=== PATIENT | male | born 1950 | race Caucasian/White ===

== ENCOUNTER 2025-06-03 01:37 | Inpatient (IN) | payer MEDICARE, SELFPAY ==
[2025-06-03] VITALS (35 sets, daily range): BP systolic 106–159; BP diastolic 49–97; PULSE 79–103; RESP 16–28; TEMP 36.6–37.2; O2SAT 91–100; BMI 52.2; BMI 50.5
--- NOTE | 2025-06-03 02:00 | EKG12_ITS ---
Test Reason : DYSRHYTHMIA Blood Pressure : */* mmHG Vent. Rate : 95 BPM Atrial Rate : 95 BPM P-R Int : 176 ms QRS Dur : 98 ms QT Int : 374 ms P-R-T Axes : 49 72 27 degrees QTcB Int : 469 ms Normal sinus rhythm Possible Inferior infarct , age undetermined Abnormal ECG Confirmed by Mikal Rasheed ([id number]), brands editor HUE SAWYER ([id number]) on 06/04/2025 1:24:22 PM Referred By: Confirmed By: Mikal Rasheed
--- NOTE | 2025-06-03 02:00 | CT_ITS ---
PROCEDURE: SPINE LUMBAR WITH CONTRAST 06/03/2025 REASON FOR EXAM: RULE OUT OSTEO, SACRAL WOUND Decubitus ulcer. TECHNIQUE: Procedure Code: CTSPLW Modality: CT Procedure: SPINE LUMBAR WITH CONTRAST CONTRAST: Isovue 370 VOLUME: 100 mL One or more dose reduction techniques were used (e.g., Automated exposure control, adjustment of the mA and/or kV according to patient size, use of iterative reconstruction technique). RADIATION DOSE SUMMARY: CTDlvol: 65 mGy DLP: 1486 mGycm COMPARISON: None. FINDINGS: Vertebrae: Mild degenerate disc and facet disease most prominent L4-5 where there is severe right and moderate left neural foraminal narrowing as well as severe right and mild left lateral recess narrowing. No fractures. Pelvis and sacrum: Decubitus ulcer overlies the right posterior lower sacroiliac joint mild adjacent inflammation. No abscess. Of the underlying right sacrum and sacroiliac joint with no definitive involvement. Intracranial structures show imaged kidneys negative. Iliac stents. Severe vascular disease of the iliac. Prostate normal. Remainder of structures negative. CT/Spine Lumbar WITH Contrast IMPRESSION: Degenerative changes lower lumbar spine. Vascular disease. Right sided decubitus ulcer without underlying osteomyelitis. Reading Location: [id number]
--- NOTE | 2025-06-03 02:03 | EX.ED.DYSGE1 ---
HPI History of Present Illness Chief Complaint: Fever Narrative Narrative: Patient is a 74-year-old male presenting to the emergency department for concern of sacral wound infection. Patient has a past medical history of respiratory failure with hypoxia, on baseline 2 L nasal cannula at his facility, CAD, peripheral vascular disease, bilateral AKA's, TIA, type 2 diabetes, anemia, hyperlipidemia, CHF, pressure ulcer of the sacral region. Patient states that this evening he developed a fever at his facility of 102.7. States he is on Tylenol every 6 hours. He reports he was having sweats and chills as well. States he felt fine yesterday. Is concerned that his sacral wound is infected. He does report he had an episode of some acid reflux in his chest earlier that went away after Tums. Denies any shortness of breath more than baseline. States that he normally wears 2 L nasal cannula but he was 88% on this so EMS bumped him up to 4 L nasal cannula. Denies any abdominal pain, nausea, vomiting, diarrhea. [facility] Medical History (Updated 06/03/25 @ 07:[address] Silvina Mackey, DO) Chronic pain BPH with urinary obstruction GERD (gastroesophageal reflux disease) Diabetic neuropathy Morbid obesity Hyperlipidemia Essential hypertension Chronic anemia CHF (congestive heart failure) Anxiety Depression Above knee amputation of left lower extremity Above knee amputation of right lower extremity PVD (peripheral vascular disease) Diabetes Home Medications ?Medication ?Instructions ?Recorded ?Last Taken ?Type acetaminophen 325 mg capsule 650 mg PO Q4H PRN fever or pain 06/03/25 Unknown History acetaminophen 500 mg capsule 1,000 mg PO Q6H PRN fever or pain 06/03/25 Unknown History acetaminophen 650 mg rectal 650 mg MD Q4H PRN fever or pain 06/03/25 Unknown History suppository aluminum-mag hydroxide-simethicone 30 ml PO Q4H PRN indigestion 06/03/25 Unknown History 200 mg-200 mg-20 mg/5 mL oral susp (Antacid Plus Anti-Gas) amlodipine 10 mg tablet 10 mg PO DAILY 06/03/25 Unknown History ascorbic acid (vitamin C) 500 mg 500 mg PO DAILY 06/03/25 Unknown History capsule aspirin 81 mg tablet 81 mg PO DAILY 06/03/25 Unknown History bisacodyl 10 mg rectal suppository 10 mg MD DAILY PRN constipation 06/03/25 Unknown History buspirone 5 mg tablet 5 mg PO BID 06/03/25 Unknown History calcium carbonate (Antacid Ultra 430 mg PO TID PRN dyspepsia 06/03/25 Unknown History Strength) carvedilol 6.25 mg tablet 6.25 mg PO BID 06/03/25 Unknown History cetirizine 10 mg tablet 10 mg PO DAILY 06/03/25 Unknown History clopidogrel 75 mg tablet 75 mg PO DAILY 06/03/25 Unknown History dextrose 40 % oral gel (Glucose 20 g PO Q15M PRN hypoglycemia 06/03/25 Unknown History Gel) escitalopram oxalate 10 mg tablet 10 mg PO DAILY 06/03/25 Unknown History furosemide 40 mg tablet (Lasix) 40 mg PO DAILY 06/03/25 Unknown History gabapentin 300 mg capsule 300 mg PO QHS 06/03/25 Unknown History glucagon 1 mg injection kit 1 mg IM .q15min PRN hypoglycemia 06/03/25 Unknown History guaifenesin 100 mg/5 mL oral 200 mg PO Q4H PRN cough 06/03/25 Unknown History liquid (Cough Syrup) hydralazine 25 mg tablet 75 mg PO TID 06/03/25 Unknown History insulin glargine 100 unit/mL (3 20 unit subcut QPM 06/03/25 Unknown History mL) subcutaneous pen (Lantus Solostar U-100 Insulin) insulin lispro 100 unit/mL 14 unit subcut ACHS 06/03/25 Unknown History subcutaneous pen (Humalog KwikPen (U-100) Insulin) insulin lispro 100 unit/mL See Protocol subcut TID 06/03/25 Unknown History subcutaneous pen (Humalog KwikPen (U-100) Insulin) isosorbide dinitrate 40 mg tablet 40 mg PO TID 06/03/25 Unknown History magnesium hydroxide 400 mg/5 mL 30 ml PO DAILY PRN constipation 06/03/25 Unknown History oral suspension (Milk of Magnesia) methocarbamol 500 mg tablet 500 mg PO QHS 06/03/25 Unknown History multivit,tx with iron 27 1 tab PO DAILY 06/03/25 Unknown History wj-vhbgxaz-rywml acid 0.4 mg-minerals tablet (Thera-M) pantoprazole 40 mg tablet,delayed 40 mg PO DAILY 06/03/25 Unknown History release (Protonix) rivaroxaban 2.5 mg tablet 2.5 mg PO BID 06/03/25 Unknown History sennosides 8.6 mg tablet (senna) 8.6 mg PO BID 06/03/25 Unknown History sodium chloride 0.65 % nasal spray 1 spray intranasal BID 06/03/25 Unknown History aerosol (Nasal [place] (sodium chloride)) tamsulosin 0.4 mg capsule 0.4 mg PO QHS 06/03/25 Unknown History tramadol 50 mg tablet 50 mg PO BID 06/03/25 Unknown History Allergy/AdvReac Type Severity Reaction Status Date / Time atorvastatin Allergy Unknown unknown Verified 06/03/25 01:50 levofloxacin Allergy Unknown unknown Verified 06/03/25 01:50 metformin AdvReac Diarrhea Verified 06/03/25 01:50 Surgical History (Updated 06/03/25 @ 07:[address] Silvina Mackey DO) S/P AKA (above knee amputation) bilateral Social History Smoking Status: Never smoker ROS ROS ED ROS Narrative See HPI EXAM Physical Exam Narrative Exam Narrative: Vital signs: Reviewed General: Alert and oriented x 3. No acute distress. Chronically ill-appearing. HEENT: Head is normocephalic and atraumatic, sinuses nontender, pupils equal round and reactive. Nares are patent. Oropharynx and throat exams normal. Neck: Supple without lymphadenopathy nontender Cardiovascular: Regular rate and rhythm, no murmurs. No rubs or gallops. Normal S1 and S2 Respiratory: Clear to auscultation bilaterally. No wheezes, rales, rhonchi. On 3 L nasal cannula saturating 94%. Abdominal: Soft and nontender. Normal bowel sounds. No guarding or rebound. Nonsurgical abdomen Back: Sacral wound with surrounding erythema. There is bloody purulent drainage from the wound. Wound was probed and it appears to go down to bone. No fluctuance or crepitus of the skin surrounding the wound. Extremities: Bilateral AKA's. Skin: No rash or redness. The rest of the physical exam is unremarkable Const Vital Signs: 06/03/25 01:42 06/03/25 01:50 06/03/25 02:11 Temperature 98.8 F Temperature Source Oral Pulse Rate 103 H Respiratory Rate 20 H Respiratory Effort Normal Respiratory Pattern Normal Blood Pressure 134/52 H Blood Pressure Mean 79 Pulse Ox 94 97 Oxygen Delivery Method Nasal Cannula Nasal Cannula Oxygen Flow Rate (L/min) 4 4 06/03/25 02:45 06/03/25 03:00 06/03/25 04:00 Temperature 98.9 F 98.1 F 98 F Temperature Source Oral Oral Oral Pulse Rate 95 93 99 Respiratory Rate 16 16 20 H Respiratory Effort Respiratory Pattern Blood Pressure 136/58 H 136/55 H 125/97 H Blood Pressure Mean 84 82 106 Pulse Ox 94 94 94 Oxygen Delivery Method Room Air Room Air Nasal Cannula Oxygen Flow Rate (L/min) 6 06/03/25 04:17 06/03/25 04:47 06/03/25 06:47 Temperature 98.9 F Temperature Source Pulse Rate 101 H 94 79 Respiratory Rate 16 16 Respiratory Effort Respiratory Pattern Blood Pressure 131/70 H 129/60 H 140/59 H Blood Pressure Mean 83 86 Pulse Ox 97 98 Oxygen Delivery Method Nasal Cannula Oxygen Flow Rate (L/min) 6 MDM MDM MDM Narrative Medical decision making narrative: Patient is a 74-year-old male presenting to the emergency department for concern of a wound infection. Patient was seen and examined. Patient arrives tachycardic at 103, mildly tachypneic at 20, requiring 3 L nasal cannula to saturate 94%. Baseline is 2 L nasal cannula. He arrives afebrile but states that he did take Tylenol before he was sent here. Differential includes but is not limited to: Osteomyelitis, cellulitis, abscess, pneumonia, viral illness, PE, ACS Given the reports of fever, tachycardia and concerns for infection, blood cultures were obtained. CT imaging of the lumbar spine was ordered to evaluate for any osteomyelitis. CT of the chest was also obtained to rule out pulmonary embolism and evaluate for any pneumonia given the patient has a increased oxygen requirement and is bedbound. CBC with leukocytosis of 13.8 and chronic anemia of 7.4. Wound was cultured by myself. With the leukocytosis, patient is meeting sepsis criteria, patient started on vancomycin and cefepime for coverage of possible osteomyelitis. Fluid bolus ordered however will resuscitate slowly given his history of CHF. EKG shows normal sinus rhythm. There are ST depressions in V4 through V6, no ST elevation, no abnormal T wave inversions, no dysrhythmia. No prior EKGs to compare to. Initial troponin of 119, reflex of 113. While patient was here he said that he did develop symptoms of acid reflux again. He was given 324 mg aspirin and nitro. His chest pain was resolved after this. Lactate within normal limits. CTA of the chest shows mild patchy airspace opacities, edema versus pneumonia. Negative for PE. CT lumbar spine shows no evidence of osteomyelitis. Given the patient's new oxygen requirement, findings of possible pneumonia, sepsis and elevated troponin, patient will require admission for further management. Discussed with patient and at bedside. He he is agreeable. Admitted to Dr. Mackey for further management. Clinical impression Sepsis Elevated troponin Sacral ulcer Acute on chronic hypoxic respiratory failure History & Record Review Discussion w/independent historian: Patient Lab Data Attestation: I reviewed the patient's lab results. Labs: Laboratory Results - last 24 hr 06/03/25 06/03/25 06/03/25 02:07 03:02 04:11 WBC 13.8 H RBC 2.83 L Hgb 7.4 L Hct 23.9 L MCV 84.5 MCH 26.1 L MCHC 31.0 L RDW Std Deviation 48.9 H RDW Coeff of Abby 15.9 H Plt Count 379 MPV 9.1 Immature Gran % (Auto) 1.000 H Neut % (Auto) 82.0 H Lymph % (Auto) 6.5 L Harrison % (Auto) 8.1 Eos % (Auto) 1.8 Baso % (Auto) 0.6 Absolute Neuts (auto) 11.3 H Absolute Lymphs (auto) 0.90 Nucleated RBC % 0 Sodium 138 Potassium 4.1 Chloride 101 Carbon Dioxide 23.8 Anion Gap 14 BUN 24 H Creatinine 1.18 Estim Creat Clear Calc 45.20 L Est GFR (MDRD) Non-Af 65 BUN/Creatinine Ratio 20.3 H Glucose 208 H Lactic Acid 2.3 H* Calcium 8.8 Total Bilirubin 0.16 AST 14 ALT 7 Alkaline Phosphatase 86 Troponin T High Sens 119 H* Troponin T Hi Sens 2 Hr 113 H* Total Protein 6.5 Albumin 3.1 L Globulin 3.4 Albumin/Globulin Ratio 0.9 Urine Color Yellow Urine Clarity Clear Urine pH 6.0 Ur Specific Taylor 1.020 Urine Protein 30 H Urine Glucose (UA) Normal Urine Ketones Negative Urine Occult Blood 10 H Urine Nitrite Negative Urine Bilirubin Negative Urine Urobilinogen Normal Ur Leukocyte Esterase 500 H Urine RBC 0 SEEN Urine WBC 10-25 SEEN Ur Squamous Epith Cells 0 SEEN Urine Bacteria RARE Urine Mucus 0 SEEN 09/14/25 06:40 WBC RBC Hgb Hct MCV MCH MCHC RDW Std Deviation RDW Coeff of Abby Plt Count MPV Immature Gran % (Auto) Neut % (Auto) Lymph % (Auto) Harrison % (Auto) Eos % (Auto) Baso % (Auto) Absolute Neuts (auto) Absolute Lymphs (auto) Nucleated RBC % Sodium Potassium Chloride Carbon Dioxide Anion Gap BUN Creatinine Estim Creat Clear Calc Est GFR (MDRD) Non-Af BUN/Creatinine Ratio Glucose Lactic Acid 1.4 Calcium Total Bilirubin AST ALT Alkaline Phosphatase Troponin T High Sens Troponin T Hi Sens 2 Hr Total Protein Albumin Globulin Albumin/Globulin Ratio Urine Color Urine Clarity Urine pH Ur Specific Taylor Urine Protein Urine Glucose (UA) Urine Ketones Urine Occult Blood Urine Nitrite Urine Bilirubin Urine Urobilinogen Ur Leukocyte Esterase Urine RBC Urine WBC Ur Squamous Epith Cells Urine Bacteria Urine Mucus Radiography Diagnostic Testing: Clinical Impression(s) from Imaging Studies Lumbar Spine CT 06/03/25 02:00 IMPRESSION: Degenerative changes lower lumbar spine. Vascular disease. Right sided decubitus ulcer without underlying osteomyelitis. Reading Location: [facility] Chest CTA 06/03/25 02:11 IMPRESSION: Emphysema. Small bilateral pleural effusions. Mild patchy airspace in the lungs, pulmonary edema versus pneumonia. Negative for pulmonary embolus. Reading Location: [id number] Discharge Plan Triage Chief Complaint: Fever ED Provider: Suzie Montes Dx/Rx/DC Orders Primary Care Provider: Jazmyne Wilkins
--- NOTE | 2025-06-03 02:11 | CT_ITS ---
PROCEDURE: CTA CHEST W/WO CONTRAST 06/03/2025 REASON FOR EXAM: RULE OUT PE Shortness of breath. Cough. TECHNIQUE: Procedure Code: [id number] Modality: CT Procedure: CTA CHEST W/WO CONTRAST Multiplanar Sagittal and Coronal images were obtained. 3D post processing was performed CONTRAST: Isovue 370 VOLUME: 100 mL One or more dose reduction techniques were used (e.g., Automated exposure control, adjustment of the mA and/or kV according to patient size, use of iterative reconstruction technique). RADIATION DOSE SUMMARY: CTDlvol: 50 mGy DLP: 1486 mGycm COMPARISON: None # of known CTs in the past 12 months: 0 # of known Cardiac Nuclear Medicine Studies in the past 12 months: 0 FINDINGS: Thyroid gland: Negative. Lungs: Small bilateral pleural effusions. Mild patchy airspace disease in the left lung. No pulmonary nodules or masses. Pleura: Small bilateral pleural effusions.. Airways: Imaged bronchi and trachea otherwisenegative. Mediastinum: Negative for mediastinal mass. Lymph nodes: Negative for axillary, mediastinal or hilar adenopathy. Heart and Vasculature: Right-sided axillary presumably fibular bypass noted. This does not contain contrast in is likely occluded. Pulmonary arteries adequately opacify with contrast. Negative for intraluminal thrombus. Small pericardial effusion. Heart normal size. Negative for vascular calcifications of the thoracic aorta. Coronary Artery Calcifications: [id number] vascular calcifications of the coronary arteries Upper Abdomen: Negative. Hardware: None. Bones: Age-appropriate degenerative changes of the thoracic spine. CT/CTA Chest W/WO Contrast IMPRESSION: Emphysema. Small bilateral pleural effusions. Mild patchy airspace in the lungs, pulmonary edema versus pneumonia. Negative for pulmonary embolus. Reading Location: [id number]
[2025-06-03 02:20] LABS: Hematocrit 23.9 % (40-54); Hemoglobin 7.4 g/dL (13.0-16.5); Immature Granulocytes Count 0.140 X10^3/uL (0.0-0.0); Mean Corp Hgb Conc 31.0 g/dL (32-36); Mean Corpuscular Volume 84.5 fL (80-94); Mean Platelet Vol. 9.1 fl (6.2-12.0); NRBC Flagged by Analyzer 0 % (0-5); Platelet Count 379 K/mm3 (150-450); RBC Distribution Width CV 15.9 % (11.6-14.6); RBC Distribution Width SD 48.9 fl (35.1-43.9); Red Blood Count 2.83 M/mm3 (4.6-6.2); White Blood Count 13.8 K/mm3 (4.4-11.0)
[2025-06-03 02:46] LABS: AST(SGOT) 14 U/L (<=37); Alanine Aminotransfer ALT/SGPT 7 U/L (<=46); Albumin, Serum 3.1 g/dL (3.4-4.8); Alkaline Phosphatase 86 U/L (40-129); Anion Gap 14 (5-15); BUN 24 mg/dL (4-19); BUN/Creat Ratio 20.3 RATIO (10-20); Calcium,Total 8.8 mg/dL (7.6-11.0); Carbon Dioxide 23.8 mmol/L (21.0-32.0); Chloride 101 mmol/L (98-108); Estimated Creatinine Clearance 45.20 ml/min (50-250); Globulin 3.4 g/dL (2.2-4.2); Glucose 208 mg/dL (70-99); Potassium 4.1 mmol/L (3.3-5.1)
[2025-06-03] MEDS: Vancomycin HCl 1,750 MG in 0.9% Normal Saline (500mL Bag) 500 ML 250 MG IV (03:04)
[2025-06-03] MEDS: Cefepime HCl 2 GM in 0.9% Normal Saline (100mL MB+) 100 ML IV (03:05)
[2025-06-03] MEDS: 0.9% Normal Saline (500mL Bag) 500 ML 1000 ML IV (03:05)
--- OUTSIDE RECORDS SUMMARY | 2025-06-03 03:07 | XMS RPT_ITS | CCD ---
Author Organization [facility] Care Team Providers Care Undercar Specialist Name Role Phone Selvin Robin MD Unavailable Davin Moran MD Unavailable [phone] Paulina Severino MD Primary Care Provider Landen Clement MD Unavailable Selvin Robin MD Unavailable Davin Moran MD Unavailable Paulina Severino MD Primary Care Provider Landen Clement MD Unavailable Juan CARROLL, Dylan Unavailable Juan CARROLL, Dylan Unavailable Marianna Klein MA Unavailable Schuyler RN, Fritz Odonnell Unavailable Schuyler KARIMI, Fritz Odonnell Unavailable Paulina Severino MD Primary Care Provider Mary WILEY.PARK ACTIVITIES COORDINATOR, Lyubov Unavailable [phone] James KARIMI, Lizzie Unavailable [phone] DARRON VALENTINO Admitting UnavailKENNETH Gutierrez Attending Unavailable GEM WALDEN Consulting Unavailable PAULINA SEVERINO Primary Care Unavailable PAULINA SEVERINO Primary Care Unavailable PROVIDER, UNKNOWN Attending Unavailable PROVIDER, UNKNOWN Admitting Unavailable Loren Wolfe RN Unavailable Unavailbrandt e Angela Cuadra MD Unavailable Unavailable PAULINA SEVERINO Primary Care Unavailable PAULINA SEVERINO Primary Care Unavailable KONTAK, PAULINA R Primary Care Unavailable CHAPARRO, SELMA Referring Unavailable SELF Referring Unavailable LYUBOV HERNANDEZ Attending Unavailable MAYCOL, PAULINA R Primary Care Unavailable MARY, LYUBOV Referring Unavailable KONTAK, PAULINA R Primary Care Unavailable KONTAK, PAULINA R Attending Unavailable RADHA CHAPARROLY Referring Unavailable MARY, LYUBOV Attending Unavailable LYLYTAK, PAULINA R Primary Care Unavailable LOU CANELA Referring Unavailable MARTIN CASTILLO Attending Unavailable LYLYTAK, PAULINA R Primary Care Unavailable KONTAK, PAULINA R Primary Care Unavailable MARY, LYUBOV Attending Unavailable MARY, LYUBOV Attending Unavailable KONTAK, PAULINA R Primary Care Unavailable MARY, LYUBOV Attending Unavailable KONTAK, PAULINA R Primary Care Unavailable KONTAK, PAULINA R Primary Care Unavailable AYDEN PALOMINO Admitting Unavailable MARTHA CANELA Attending Unavailable STEFFANIE ALLEN Referring Unavailable MARY, LYUBOV Attending Unavailable SELF Referring Unavailable YLLYTAK, PAULINA R Primary Care Unavailable SELMA CHAPARRO Referring Unavailable LYLYTAAgata, PAULINA R Primary Care Unavailable STEFFANIE COLEMAN Referring Unavailable KONTAK, PAULINA R Primary Care Unavailable KONTAK, PAULINA R Primary Care Unavailable KONTAK, PAULINA R Primary Care Unavailable KONTAK, PAULINA R Primary Care Unavailable MARYLYUBOV Referring Unavailable KONTAK, PAULINA R Primary Care Unavailable ELIZABETH BALL Attending Unavailable KONTAK, PAULINA R Primary Care Unavailable THIERRY RUSH Attending Unavailabl e KONKRISTINA, PAULINA R Primary Care Unavailable SELF Referring Unavailable EDUIN COLEMAN Attending Unavailable MAYCOL, PAULINA R Primary Care Unavailable MARYLYUBOV MARTINEZ Referring Unavailable KONTAAgata, PAULINA R Primary Care Unavailable RADHA CHAPARROLY Referring Unavailable KONTAK, PAULINA R Primary Care Unavailable CHAPARRO, SELMA Referring Unavailable DAVIN MORAN Attending Unavailable MAYCOL, PAULINA R Primary Care Unavailable LYLYTAAgata, PAULINA R Primary Care Unavailable DAVIN TOBIAS Admitting Unavailable KARI BERG Attending Unavailable MAYCOL, PAULINA R Primary Care Unavailable DARYA GUAJARDO Admitting Unavailable THIRERY RUSH Consulting Unavailbrandt e THIERRY RUSH Referring Unavailabl e KARI BERG Attending Unavailable MAYCOL, PAULINA R Primary Care Unavailable EDUIN COLEMAN Attending Unavailable KONTAK, PAULINA R Primary Care Unavailable THIERRY RUSH Attending Unavailabl e PAULINA SEVERINO Primary Care Unavailable PAULINA SEVERINO Primary Care Unavailable ELIZABETH BALL Referring Unavailable PAULINA SEVERINO Primary Care Unavailable PAULINA SEVERINO Primary Care Unavailable PAULINA SEVERINO Referring Unavailable EDUIN COLEMAN Referring Unavailable PAULINA SEVERINO Primary Care Unavailable LYUBOV HERNANDEZ Referring Unavailable PAULINA SEVERINO Primary Care Unavailable Gudla OLS, Jazmyne Attending Unavailable Town Doctor, Out of Primary Care Unavailable Town Doctor, Out of Primary Care Unavailable Gudla OLS, Jazmyne Attending Unavailable [facility] Doctor, Out of Primary Care Unavailable Gudla OLS, Jazmyne Attending Unavailable Town Doctor, Out of Primary Care Unavailable Gudla OLS, Jazmyne Attending Unavailable Gudla OLS, Jazmyne Attending Unavailable [facility] Doctor, Out of Primary Care Unavailable Gudla OLS, Jazmyne Attending Unavailable [facility] Doctor, Out of Primary Care Unavailable Allergies Allergy Classification Reported Allergen(s) Allergy Type Date of Onset Reaction(s) Facility HMG-CoA Reductase Inhibitors (statins) (3 sources) atorvastatin Drug Allergy 7 Myalgia [facility] metFORMIN (3 sources) metFORMIN Drug Allergy 7 Diarrhea [facility] Work Phone: Quinolones (antibiotic) (3 sources) levoFLOXacin Drug Allergy 7 [facility] (20 sources) atorvastatin; Translations: [ATORVASTATIN] Drug Allergy 7 Myalgia [facility] (20 sources) levoFLOXacin; Translations: [LEVOFLOXACIN] Drug Allergy 7 Unknown [facility] (20 sources) metFORMIN; Translations: [METFORMIN] Drug Allergy 7 Diarrhea [facility] Work Phone: (20 sources) rosuvastatin Drug Allergy 6 Other: See Comments [facility] Medications Current Medications Medication Drug Class(es) Dates Sig (Normalized) Sig (Original) acetaminophen 500 mg oral tablet (20 sources) take 1 tablet by mouth once as needed acetaminophen (TYLENOL PO) Take 1-2 tablets by mouth every 6 hours as needed. 500mg tablet per Active take 1-2 tablets by mouth every six hours as needed ACETAMINOPHEN (TYLENOL ORAL) Take 1-2 tablets by mouth every 6 hours as needed. Suspended take 1-2 tablets by mouth every six hours as needed ACETAMINOPHEN (TYLENOL ORAL) Take 1-2 tablets by mouth every 6 hours as needed. Active take 1-2 tablets by mouth every six hours as needed ACETAMINOPHEN (TYLENOL ORAL) Take 1-2 tablets by mouth every 6 hours as needed. 0 Suspended take 1-2 tablets by mouth every six hours as needed ACETAMINOPHEN (TYLENOL ORAL) Take 1-2 tablets by mouth every 6 hours as needed. 0 Active Comment on above: Take 1-2 tablets by mouth every 6 hours as needed. acetaminophen 325 mg / oxyCODONE hydrochloride 5 mg oral tablet (12 sources) Opioid Agonist Start: End: 4 take 1 tablet by mouth every four hours as needed for pain oxyCODONE-acetaminophe n (PERCOCET) 5-325 mg tablet Indications: Postoperative pain Take 1 tablet by mouth every 4 hours as needed for pain for up to 7 days. 28 tablet 0 10/21/2023 10/28/2023 Active Start: 04-14-2022 End: 04-21-2022 take 1 tablet by mouth every six hours as needed for pain oxyCODONE-acetaminophen (PERCOCET) 5-325 mg tablet Indications: Spinal stenosis, lumbar region, without neurogenic claudication , Disturbance of skin sensation Take 1 tablet by mouth every 6 hours as needed for pain (for pain.) for up to 7 days. 28 tablet 0 04/14/2022 04/21/2022 Active Comment on above: Take 1 tablet by elisa th every 6 hours as needed for pain (for pain.) for up to 7 days. Take 1 tablet by elisa th every 4 hours as needed for pain for up to 7 days. amLODIPine 10 mg oral tablet (20 sources) Dihydropyridine Calcium Channel Kezia Start: 5 take 1 tablet by mouth once daily amLODIPine (NORVASC) 10 mg tablet Take 1 tablet by mouth once daily. 90 tablet 05/03/2025 Active Start: 03-07-2024 End: 06-05-2024 take 1 tablet by mouth once daily amLODIPine (NORVASC) 5 mg tablet Take 1 tablet by mouth once daily. 30 tablet 2 03/07/2024 Active Start: 03-27-2022 End: 03-27-2022 take 1 tablet by mouth once daily amLODIPine (NORVASC) 5 mg tablet Take 1 tablet by mouth once daily. 90 tablet 3 03/27/2022 Suspended Comment on above: Take 1 tablet by elisa th once daily. Take by mouth once d aily. aspirin 81 mg chewable tablet (20 sources) Platelet Aggregation Inhibitor, Nonsteroidal Anti-inflammatory Drug Start: 11-04-2024 End: 02-02-2025 take 1 tablet by mouth once daily aspirin 81 mg chewable tablet Take 1 tablet by mouth once daily. 30 tablet 2 11/04/2024 Active Start: 09-29-2023 End: 09-28-2024 take 1 tablet by mouth once daily aspirin 81 mg chewable tablet Take 1 tablet by mouth once daily. 09/29/2023 Active take 1 tablet by elisa th once daily aspirin, enteric coated (ASPIRIN, ENTERIC COATED) 325 mg EC tablet Take 325 mg by mouth once daily. 0 Active Comment on above: Take 325 mg by mouth once daily. Take 1 tablet by elisa th once daily. bacitracin 0.5 unt/mg / polymyxin b 10 unt/mg topical ointment (2 sources) Polymyxin-class Antibacterial Start: 11-04-19 End: 11-11-19 bacitracin zinc-polymyxin B (POLYSPORIN) 500-10,000 unit/gram ointment Apply 1 Packet to affected area three times a day for 7 days. 21 Packet 11/04/2024 11/11/2024 Active calcium carbonate 500 mg chewable tablet (3 sources) Start: 05-02-20 take 1000 mg by mouth every eight hours as needed calcium carbonate (TUMS) 500 mg chew Take 2 tablets by mouth three times a day as needed. 05/02/2025 Active carvedilol 6.25 mg oral tablet (20 sources) alpha-Adrenergic Kezia, beta-Adrenergic Kezia Start: 11-04-19 End: 02-29-20 take 1 tablet by mouth twice daily at mealtime carvedilol (COREG) 6.25 mg tablet Take 1 tablet by mouth two times a day with meals. 180 tablet 3 02/28/2025 Active cefdinir 300 mg oral capsule (4 sources) Cephalosporin Antibacterial Start: 12-23-19 End: 01-02-20 take 1 capsule by mouth twice daily cefdinir (OMNICEF) 300 mg capsule Indications: Bacterial sinusitis Take 1 capsule by mouth twice daily for 10 days. 20 capsule 0 12/22/2021 01/01/2022 Active Comment on above: Take 1 capsule by mo [facility] twice daily for 10 days. clopidogrel 75 mg oral tablet (20 sources) P2Y12 Platelet Inhibitor Start: 09-29-19 End: 08-21-20 25 take 1 tablet by mouth once daily clopidogrel (PLAVIX) 75 mg tablet Take 1 tablet by mouth once daily 90 tablet 3 08/21/2024 08/21/2025 Active Start: 01-08-2022 End: 04-30-2023 take 1 tablet by mouth once daily clopidogrel (PLAVIX) 75 mg tablet Take 1 tablet by mouth once daily. 90 tablet 3 04/30/2023 Active Start: 09-10-2021 take 1 tablet by elisa th once daily clopidogrel (PLAVIX) 75 mg tablet Take 1 tablet by mouth once daily. 90 tablet 3 09/10/2021 Active Comment on above: Take 1 tablet by elisa once daily. Take 1 tablet by elisa once daily docusate sodium 50 mg / sennosides, intermediate 8.6 mg oral tablet (11 sources) Start: 05-02-2025 take 1 tablet enteral route every twelve hours as needed senna-docusate (SENNA-S) 8.6-50 mg per tablet 1 tablet by ORAL/FEEDING TUBE route two times a day as needed. 05/02/2025 Active Start: 10-21-2023 End: 11-04-2023 take 1 tablet by mouth twice daily senna-docusate (SENNA-S) 8.6-50 mg per tablet Take 1 tablet by mouth two times a day for 14 days. 28 tablet 0 10/21/2023 11/04/2023 Active Comment on above: Take 1 tablet by elisa th two times a day for 14 days. escitalopram 10 mg oral tablet (20 sources) Serotonin Reuptake Inhibitor Start: 08-03-20 16 End: 01-03-20 24 take 1 tablet by mouth once daily escitalopram oxalate (LEXAPRO) 10 mg tablet Indications: Depressive disorder Take 1 tablet by mouth once daily. 90 tablet 3 01/03/2024 Active Comment on above: Take 10 mg by mouth once daily. Take 1 tablet by elisa th once daily. fenofibrate 145 mg oral tablet (20 sources) Peroxisome Proliferator Receptor alpha Agonist Start: 10-01-19 End: 01-31-20 take 1 tablet by mouth once daily fenofibrate nanocrystallized (TRICOR) 145 mg tablet Indications: Mixed hyperlipidemia Take 1 tablet by mouth once daily. 90 tablet 3 01/31/2024 01/30/2025 Active Start: 07-14-2022 take 1 tablet by elisa th once daily fenofibrate nanocrystallized (TRICOR) 145 mg tablet Indications: Mixed hyperlipidemia Take 1 tablet by mouth once daily. 90 tablet 3 07/14/2022 Active Start: 09-18-2021 take 1 tablet by elisa th once daily fenofibrate nanocrystallized (TRICOR) 145 mg tablet Indications: Mixed hyperlipidemia Take 1 tablet by mouth once daily. 90 tablet 3 09/18/2021 Suspended Comment on above: Take 1 tablet by elisa th once daily. flash glucose sensor (FREESTYLE CL 2 SENSOR) kit (20 sources) Start: 08-01-2024 flash glucose sensor (FREESTYLE CL 2 SENSOR) kit Apply new sensor every fourteen (14) days to upper arm. 6 Each 4 08/01/2024 Suspended Start: 08-01-2024 flash glucose sensor (FREESTYLE CL 2 SENSOR) kit Apply new sensor every fourteen (14) days to upper arm. 6 Each 4 08/01/2024 Active furosemide 40 mg oral tablet (3 sources) Loop Diuretic Start: 05-03-2025 take 1 tablet by mouth once daily furosemide (LASIX) 40 mg tablet Take 1 tablet by mouth once daily. 90 tablet 05/03/2025 Active gabapentin 300 mg oral capsule (20 sources) Anti-epileptic Agent Start: 05-02-2025 End: 06-01-2025 take 1 capsule by mouth once daily gabapentin (NEURONTIN) 300 mg capsule 1 capsule by ORAL/FEEDING TUBE route once daily for 30 days. 05/02/2025 06/01/2025 Active Start: 10-25-2023 End: 06-25-2024 take 1 tablet by mouth four times daily gabapentin (NEURONTIN) 600 mg tablet Indications: Spinal stenosis of lumbar region with neurogenic claudication Take 1 tablet by mouth four times daily for 90 days. 120 tablet 2 03/27/2024 Active Start: 07-21-2023 End: 08-20-2023 take 1 tablet by mouth four times daily gabapentin (NEURONTIN) 600 mg tablet Indications: Acute right-sided low back pain with right-sided sciatica , Spinal stenosis of lumbar region with neurogenic claudication Take 1 tablet by mouth four times daily for 30 days. 120 tablet 0 07/21/2023 Active Start: 06-09-2023 End: 09-07-2023 take 1 tablet by mouth three times daily gabapentin (NEURONTIN) 600 mg tablet Indications: Acute right-sided low back pain with right-sided sciatica , Spinal stenosis of lumbar region with neurogenic claudication Take 1 tablet by mouth three times daily for 90 days. 90 tablet 2 06/09/2023 07/21/2023 Discontinued Start: 07-14-2022 End: 06-09-2023 take 1 capsule by mouth three times daily gabapentin (NEURONTIN) 400 mg capsule Take 1 capsule by mouth three times daily for 90 days. 90 capsule 2 09/18/2022 06/09/2023 Discontinued (Changing Therapy/Dosage Form) Start: 07-10-2022 take 1 tablet by elisa th three times daily gabapentin (NEURONTIN) 600 mg tablet Take 1 tablet by mouth three times daily. 0 07/10/2022 Active Start: 04-23-2022 End: 06-17-2022 take 1 tablet by mouth three times daily gabapentin (NEURONTIN) 600 mg tablet Take 1 tablet by mouth three times daily for 30 days. 90 tablet 1 04/23/2022 06/17/2022 Discontinued Start: 12-22-2021 End: 12-22-2021 take 1 capsule by mouth three times daily gabapentin (NEURONTIN) 300 mg capsule Indications: Painful diabetic neuropathy (HCC) , Acute right-sided low back pain with right-sided sciatica Take 1 capsule by mouth three times daily for 90 days. 90 capsule 2 12/22/2021 12/22/2021 Discontinued Start: 12-22-2021 End: 03-22-2022 take 1 capsule by mouth three times daily gabapentin (NEURONTIN) 400 mg capsule Take 1 capsule by mouth three times daily for 90 days. 90 capsule 2 12/22/2021 Active Start: 09-18-2021 End: 12-22-2021 take 1 capsule by mouth once daily at bedtime gabapentin (NEURONTIN) 300 mg capsule Indications: Painful diabetic neuropathy (HCC) Take 1 capsule by mouth daily at bedtime for 180 days. 90 capsule 1 09/18/2021 12/22/2021 Discontinued take 1 tablet by [facility] once daily gabapentin (NEURONTIN) 600 mg tablet Take 600 mg by mouth four times daily. Pt takes at least one daily but gets drunk feeling if takes more Suspended Comment on above: Take 1 capsule by [facility] three times daily for 90 days. Take 1 capsule by [facility] daily at bedtime for 180 days. Take 1 tablet by [facility] three times daily for 30 days. Take 1 tablet by [facility] three times daily. Take 1 tablet by [facility] three times daily for 90 days. Take 1 tablet by [facility] four times daily for 30 days. Take 1 tablet by [facility] four times daily for 90 days. hydrALAZINE hydrochloride 25 mg oral tablet (20 sources) Arteriolar Vasodilator Start: End: take 3 tablets by mouth every eight hours hydrALAZINE (APRESOLINE) 25 mg tablet Take 3 tablets by mouth every 8 hours. 270 tablet 11 02/28/2025 Active 3 ml insulin degludec 100 unt/ml pen injector (20 sources) Insulin Analog Start: inject 20 [IU] by subcutaneous injection once daily at bedtime TRESIBA FLEXTOUCH U-100 100 unit/mL (3 mL) injection pen Indications: Type 2 diabetes mellitus with diabetic peripheral angiopathy without gangrene, with long-term current use of insulin ([facility]) Inject 20 Units subcutaneously daily at bedtime. 15 mL 3 11/04/2024 Active Start: 07-25-2024 inject 28 [IU] by ibrahim bcutaneous injection once daily at bedtime TRESIBA FLEXTOUCH U-100 100 unit/mL (3 mL) injection pen Indications: Type 2 diabetes mellitus with diabetic peripheral angiopathy without gangrene, with long-term current use of insulin ([facility]) Inject 28 Units subcutaneously daily at bedtime. 15 mL 3 07/25/2024 Active Start: 06-27-2024 End: 07-25-2024 inject 25 [IU] by subcutaneous injection once daily at bedtime TRESIBA FLEXTOUCH U-100 100 unit/mL (3 mL) injection pen Indications: Type 2 diabetes mellitus with diabetic peripheral angiopathy without gangrene, with long-term current use of insulin (HCC) Inject 25 Units subcutaneously daily at bedtime. 15 mL 3 07/10/2024 07/25/2024 Discontinued (Adjust Sig - Block E-Cancel) Start: 12-08-2023 End: 06-27-2024 insulin degludec (TRESIBA FLEXTOUCH U-100) 100 unit/mL (3 mL) injection pen Inject 20 Units subcutaneously daily at bedtime. 9 mL 03/27/2024 06/27/2024 Discontinued (Adjust Sig - Block E-Cancel) Comment on above: Inject 20 Units subcutaneously daily at bedtime. 3 ml insulin lispro 100 unt/ml pen injector (20 sources) Insulin Analog Start: 11-21-19 End: 01-09-20 inject 12 [IU] by subcutaneous injection three times daily before mealtime insulin lispro (HUMALOG KWIKPEN) 100 unit/mL Indications: Type 2 diabetes mellitus with diabetic peripheral angiopathy without gangrene, with long-term current use of insulin (HCC) INJECT 12 UNITS SUBCUTANEOUSLY 3 TIMES DAILY BEFORE MEALS -ADD 2 UNITS IF GLUCOSE IS OVER 250 15 mL 5 01/08/2025 Active Start: 11-04-2024 End: 11-20-2024 inject 8 [IU] by subcutaneous injection three times daily before mealtime insulin lispro (HUMALOG KWIKPEN) 100 unit/mL Indications: Type 2 diabetes mellitus with diabetic peripheral angiopathy without gangrene, with long-term current use of insulin (HCC) INJECT 8 UNITS SUBCUTANEOUSLY THREE TIMES DAILY BEFORE MEALS 15 mL 5 11/04/2024 11/20/2024 Discontinued Start: 09-29-2023 End: 01-11-2024 inject 12 [IU] by subcutaneous injection three times daily before mealtime insulin lispro (HUMALOG KWIKPEN) 100 unit/mL Indications: Type 2 diabetes mellitus with diabetic peripheral angiopathy without gangrene, with long-term current use of insulin (HCC) INJECT 12 UNITS SUBCUTANEOUSLY THREE TIMES DAILY BEFORE MEALS - ADD 2 UNITS IF GLUCOSE IS OVER 250 15 mL 5 01/11/2024 Active Start: 06-09-2023 insulin lispro (HUMALOG KWIKPEN) 100 unit/mL Indications: Type 2 diabetes mellitus with diabetic peripheral angiopathy without gangrene, with long-term current use of insulin (HCC) Inject 18 Units subcutaneously three times daily before meals. Plus additional 2 units if glucose is over 250. 5 Each 2 06/09/2023 Active Start: 06-10-2022 inject 10 [IU] by ibrahim bcutaneous injection three times daily before mealtime insulin lispro (HUMALOG KWIKPEN) 100 unit/mL Indications: Type 2 diabetes mellitus with diabetic peripheral angiopathy without gangrene, with long-term current use of insulin (HCC) Inject 10 Units subcutaneously three times daily before meals. 5 Each 2 06/10/2022 Active Start: 05-20-2022 End: 06-10-2022 insulin lispro 100 unit/mL injection Inject 0-15 Units subcutaneously w MEALS. 0 05/20/2022 06/10/2022 Discontinued Start: 09-03-2021 End: 12-30-2021 insulin lispro (HUMALOG KWIK PEN INSULIN) 200 unit/mL (3 mL) injection Indications: Type 2 diabetes mellitus with diabetic neuropathy, with long-term current use of insulin (HCC) , Type 2 diabetes mellitus with diabetic peripheral angiopathy without gangrene, with long-term current use of insulin (HCC) , Type 2 diabetes mellitus with microalbuminuria, with long-term current use of insulin (HCC) Inject 46 Units subcutaneously three times daily before meals. Dispense 20 pens for 90 days. DX: E11.42, E11.65, Z79.4 20 Pen 3 12/30/2021 Suspended Comment on above: Inject 46 Units subc utaneously three times daily before meals. Dispense 20 pens for 90 days. DX: E11.42, E11.65, Z79.4 Inject 0-15 Units ibrahim bcutaneously w MEALS. Inject 10 Units subc utaneously three times daily before meals. Inject 18 Units subc utaneously three times daily before meals. Plus additional 2 units if glucose is over 250. Inject 12 Units subc utaneously three times a day before meals. Plus additional 2 units if glucose is over 250. INJECT 12 UNITS SUBC UTANEOUSLY THREE TIMES DAILY BEFORE MEALS - ADD 2 UNITS IF GLUCOSE IS OVER 250 isosorbide dinitrate 40 mg oral tablet (3 sources) Nitrate Vasodilator Start: take 1 tablet by mouth three times daily isosorbide dinitrate (ISORDIL) 40 mg tablet 1 tablet by ORAL/FEEDING TUBE route three times a day. 05/02/2025 Active lisinopril 5 mg oral tablet (20 sources) Angiotensin Converting Enzyme Inhibitor Start: End: take 1 tablet by mouth once daily lisinopril (ZESTRIL) 5 mg tablet Take 1 tablet by mouth once daily. 90 tablet 3 06/13/2024 06/13/2025 Active Start: 09-30-2023 End: 12-29-2023 take 1 tablet by mouth once daily lisinopril (ZESTRIL) 5 mg tablet Take 1 tablet by mouth once daily. 09/30/2023 Active Start: 10-01-2022 take 1 tablet by elisa th once daily lisinopril 2.5 mg tablet Take 1 tablet by mouth once daily. 30 tablet 11 10/01/2022 Active Start: 05-20-2022 End: 08-06-2022 take 1 tablet by mouth once daily lisinopril 2.5 mg tablet Take 1 tablet by mouth once daily. 30 tablet 11 08/06/2022 Active Comment on above: Take 1 tablet by elisa th once daily. 24 hr metoprolol succinate 25 mg extended release oral tablet (20 sources) beta-Adrenergic Kezia Start: 10-01-2022 End: 09-23-2024 take 1 tablet by mouth once daily metoprolol succinate ER (TOPROL XL) 25 mg 24 hr tablet Take 1 tablet by mouth once daily. 90 tablet 1 03/27/2024 Active Start: 05-20-2022 End: 08-06-2022 take 1 tablet by mouth once daily metoprolol succinate ER (TOPROL XL) 25 mg 24 hr tablet Take 1 tablet by mouth once daily. 30 tablet 11 08/06/2022 Active Comment on above: Take 1 tablet by elisa th once daily. MULTIVIT &MINERALS/FERROUS FUM (MULTI VITAMIN ORAL) (20 sources) MULTIVIT &MINERA LS/FERROUS FUM (MULTI VITAMIN ORAL) Take by mouth once daily. Suspended MULTIVIT &MINERA LS/FERROUS FUM (MULTI VITAMIN ORAL) Take by mouth once daily. Active MULTIVIT &MINERA LS/FERROUS FUM (MULTI VITAMIN ORAL) Take by mouth once daily. 0 Suspended MULTIVIT &MINERA LS/FERROUS FUM (MULTI VITAMIN ORAL) Take by mouth once daily. 0 Active Comment on above: Take by mouth once d aily. pantoprazole 40 mg delayed release oral tablet (20 sources) Proton Pump Inhibitor Start: take 1 tablet by mouth once daily in the morning pantoprazole DR (PROTONIX) 40 mg tablet Take 1 tablet by mouth daily at 6 am. 05/03/2025 Active Start: 11-04-2024 End: 02-02-2025 take 1 tablet by mouth once daily pantoprazole DR (PROTONIX) 40 mg tablet Take 1 tablet by mouth once daily. 30 tablet 2 11/04/2024 02/02/2025 Active Start: 09-29-2023 End: 12-28-2023 take 1 tablet by mouth once daily pantoprazole DR (PROTONIX) 40 mg tablet Take 1 tablet by mouth once daily. 09/29/2023 Active Comment on above: Take 1 tablet by elisa th once daily. rivaroxaban 2.5 mg oral tablet (20 sources) Factor Xa Inhibitor Start: 11-04-2024 End: 06-25-2025 take 1 tablet by mouth twice daily rivaroxaban (XARELTO) 2.5 mg tablet Take 1 tablet by mouth two times a day. 60 tablet 2 03/27/2025 06/25/2025 Active Start: 12-08-2023 take 1 tablet by elisa th once daily rivaroxaban (XARELTO) 10 mg tablet Take 1 tablet by mouth once daily. 90 tablet 3 12/08/2023 Active Start: 09-29-2023 End: 09-28-2024 take 1 tablet by mouth once daily at dinner rivaroxaban (XARELTO) 20 mg tablet Take 1 tablet by mouth daily with dinner. 30 tablet 11 09/29/2023 12/08/2023 Discontinued Start: 05-20-2022 End: 08-06-2022 take 1 tablet by mouth once daily at dinner rivaroxaban (XARELTO) 20 mg tablet Take 1 tablet by mouth daily with dinner. 30 tablet 11 08/06/2022 Active Start: 03-02-2022 End: 04-01-2022 take 1 tablet by mouth once daily at dinner rivaroxaban (XARELTO) 20 mg tablet Take 1 tablet by mouth daily with dinner. 30 tablet 11 03/02/2022 04/01/2022 Active Start: 10-02-2021 take 1 tablet by elisa th once daily at dinner rivaroxaban (XARELTO) 20 mg tablet Take 1 tablet by mouth daily with dinner. 30 tablet 11 10/02/2021 Active Comment on above: Take 1 tablet by elisa th daily with dinner. Take 1 tablet by elisa th once daily. rosuvastatin calcium 20 mg oral tablet (20 sources) HMG-CoA Reductase Inhibitor Start: 07-14-20 End: 02-29-20 take 1 tablet by mouth once daily rosuvastatin (CRESTOR) 20 mg tablet Indications: Coronary arteriosclerosis Take 1 tablet by mouth once daily. 90 tablet 3 02/28/2025 Active Start: 09-18-2021 take 1 tablet by elisa th once daily rosuvastatin (CRESTOR) 20 mg tablet Indications: Coronary arteriosclerosis Take 1 tablet by mouth once daily. 90 tablet 3 09/18/2021 Active Comment on above: Take 1 tablet by elisa th once daily. tamsulosin hydrochloride 0.4 mg oral capsule (20 sources) alpha-Adrenergic Kezia Start: 05-20-2022 End: 01-08-2025 take 1 capsule by mouth once daily tamsulosin (FLOMAX) 0.4 mg Take 1 capsule by mouth once daily 30 capsule 5 01/08/2025 Active Comment on above: Take 1 capsule by mo [facility] once daily. Take 1 capsule by mo [facility] once daily zinc oxide 0.2 mg/mg topical ointment (3 sources) Start: 05-02-2025 End: 05-03-2025 zinc oxide 20 % ointment Apply to affected area two times a day for 1 day. 05/02/2025 Active Completed/Discontinued Medications Medication Drug Class(es) Dates Sig (Normalized) Sig (Original) ascorbic acid 500 mg oral tablet (20 sources) Vitamin C Start: 12-11-2024 End: 03-11-2025 take 1 tablet by mouth once daily ascorbic acid, vitamin C, (VITAMIN C) 500 mg tablet Take 1 tablet by mouth once daily. 30 tablet 2 12/11/2024 Suspended Start: 08-22-2024 End: 11-20-2024 take 1 tablet by mouth once daily ascorbic acid, vitamin C, (VITAMIN C) 500 mg tablet Take 1 tablet by mouth once daily. 08/22/2024 Active Start: 09-29-2023 End: 08-22-2024 take 1 tablet by mouth twice daily ascorbic acid, vitamin C, (VITAMIN C) 500 mg tablet Take 1 tablet by mouth two times a day. 09/29/2023 08/22/2024 Discontinued (Adjust Sig - Block E-Cancel) Comment on above: Take 1 tablet by elisa th two times a day. atenolol 50 mg oral tablet (20 sources) beta-Adrenergic Kezia Start: 1 take 1 tablet by mouth once daily atenolol (TENORMIN) 50 mg tablet Take 1 tablet by mouth once daily. 90 tablet 3 09/18/2021 Suspended Comment on above: Take 1 tablet by elisa th once daily. benzonatate 100 mg oral capsule (20 sources) Non-narcotic Antitussive Start: 3 take 1 capsule by mouth three times daily as needed benzonatate (TESSALON PERLE) 100 mg capsule Indications: Viral URI with cough Take 1 capsule by mouth three times daily as needed. 20 capsule 0 12/23/2022 Active Comment on above: Take 1 capsule by mo [facility] three times daily as needed. Blood-Glucose Meter,Continuous (DEXCOM G7 SERVICE BAR CASHIER) misc (20 sources) Start: 4 End: 5 Blood-Glucose Meter,Continuous (DEXCOM G7 SERVICE BAR CASHIER) misc Check glucose throughout the day. Patient is on insulin 1 Each 11/19/2023 11/08/2024 Discontinued (Course of therapy completed) Start: 11-19-2023 Blood-Glucose Meter,Continuous (DEXCOM G7 SERVICE BAR CASHIER) misc Check glucose throughout the day. Patient is on insulin 1 Each 11/19/2023 Suspended Start: 11-19-2023 Blood-Glucose Meter,Continuous (DEXCOM G7 SERVICE BAR CASHIER) misc Check glucose throughout the day. Patient is on insulin 1 Each 11/19/2023 Active Start: 11-19-2023 Blood-Glucose Meter,Continuous (DEXCOM G7 SERVICE BAR CASHIER) misc Check glucose throughout the day. Patient is on insulin 1 Each 0 11/19/2023 Active Comment on above: Check glucose throug hout the day. Patient is on insulin Blood-Glucose Sensor (DEXCOM G7 SENSOR) katlyn (20 sources) Start: 11-19-2023 End: 11-08-2024 Blood-Glucose Sensor (DEXCOM G7 SENSOR) katlyn 1 Each every 2 weeks. Patient is on insulin 6 Each 3 11/19/2023 11/08/2024 Discontinued (Course of therapy completed) Start: 11-19-2023 Blood-Glucose Sensor (DEXCOM G7 SENSOR) katlyn 1 Each every 2 weeks. Patient is on insulin 6 Each 3 11/19/2023 Suspended Start: 11-19-2023 Blood-Glucose Sensor (DEXCOM G7 SENSOR) katlyn 1 Each every 2 weeks. Patient is on insulin 6 Each 3 11/19/2023 Active Comment on above: 1 Each every 2 weeks . Patient is on insulin cyclobenzaprine hydrochloride 5 mg oral tablet (20 sources) Muscle Relaxant Start: End: take 1 tablet by mouth every eight hours as needed cyclobenzaprine (FLEXERIL) 5 mg tablet Take 1 tablet by mouth three times a day as needed. 90 tablet 09/29/2023 08/22/2024 Discontinued (Course of therapy completed) Comment on above: Take 1 tablet by elisa th three times a day as needed. diclofenac sodium 1 mg/ml ophthalmic solution (20 sources) Nonsteroidal Anti-inflammatory Drug Start: take 1 drop(s) into the eye(s) twice daily diclofenac (VOLTAREN) 0.1 % ophthalmic solution Use 1 Drop in the left eye twice daily. 0 01/18/2023 Active Start: 01-18-2023 take 1 drop(s) into the eye(s) twice daily diclofenac (VOLTAREN) 0.1 % ophthalmic solution Use 1 Drop in the left eye twice daily. 0 01/18/2023 Active Comment on above: Use 1 Drop in the le ft eye twice daily. diphenhydrAMINE hydrochloride 25 mg oral capsule (2 sources) Histamine-1 Receptor Antagonist take 1 capsule by mouth every twenty-four hours as needed diphenhydrAMINE (BENADRYL) 25 mg capsule Take 25 mg by mouth at bedtime as needed. 0 Suspended Comment on above: Take 25 mg by mouth at bedtime as needed. doxycycline hyclate 100 mg oral tablet (4 sources) Tetracycline-class Drug Start: 07-19-20 End: 07-29-20 take 1 tablet by mouth twice daily doxycycline (VIBRA-TABS) 100 mg tablet Take 1 tablet by mouth two times a day for 10 days. 20 tablet 0 07/19/2023 07/29/2023 Comment on above: Take 1 tablet by elisa th two times a day for 10 days. flash glucose scanning reader (FREESTYLE CL 14 DAY READER) (20 sources) Start: 07-13-20 End: 03-27-20 flash glucose scanning reader (FREESTYLE CL 14 DAY READER) 1 Each once daily. 1 Each 0 07/13/2022 03/27/2024 Discontinued (Changing Therapy/Dosage Form) Start: 07-13-2022 flash glucose scanning reader (FREESTYLE CL 14 DAY READER) 1 Each once daily. 1 Each 0 07/13/2022 Active Comment on above: 1 Each once daily. flash glucose sensor (FREESTYLE CL 14 DAY SENSOR) kit (20 sources) Start: 10-21-2023 End: 03-27-2024 flash glucose sensor (FREESTYLE CL 14 DAY SENSOR) kit Apply sensor to arm every 14 days. 6 Each 3 10/21/2023 03/27/2024 Discontinued (Changing Therapy/Dosage Form) Start: 10-21-2023 flash glucose sensor (FREESTYLE CL 14 DAY SENSOR) kit Apply sensor to arm every 14 days. 6 Each 3 10/21/2023 Active Start: 07-13-2022 End: 10-20-2023 flash glucose sensor (FREEST YLE CL 14 DAY SENSOR) kit Apply sensor to arm every 14 days. 6 Each 3 07/13/2022 10/20/2023 Discontinued Start: 07-13-2022 flash glucose sensor (FREESTYLE CL 14 DAY SENSOR) kit Apply sensor to arm every 14 days. 6 Each 3 07/13/2022 Active Start: 09-18-2021 End: 12-30-2021 flash glucose sensor (FREEST YLE CL 14 DAY SENSOR) kit Indications: Uncontrolled type 2 diabetes mellitus with diabetic polyneuropathy, with long-term current use of insulin Apply sensor to arm every 14 days. 6 Each 3 09/18/2021 12/30/2021 Discontinued Start: 09-18-2021 flash glucose sensor (FREESTYLE CL 14 DAY SENSOR) kit Indications: Uncontrolled type 2 diabetes mellitus with diabetic polyneuropathy, with long-term current use of insulin Apply sensor to arm every 14 days. 6 Each 3 09/18/2021 Active Comment on above: Apply sensor to arm every 14 days. FLAXSEED OIL (OMEGA 3 ORAL) (20 sources) take 1000 mg by mouth once daily FLAXSEED OIL (OMEGA 3 ORAL) Take 1,000 mg by mouth once daily. 0 Suspended take 1000 mg by mouth once daily FLAXSEED OIL (OMEGA 3 ORAL) Take 1,000 mg by mouth once daily. 0 Active Comment on above: Take 1,000 mg by elisa th once daily. 3 ml insulin glargine 100 unt/ml pen injector (20 sources) Insulin Analog Start: 09-29-2023 End: 12-08-2023 insulin glargine (BASAGLAR KWIKPEN U-100 INSULIN) 100 unit/mL (3 mL) Inject 20 Units subcutaneously daily at bedtime. 15 mL 0 09/29/2023 12/08/2023 Discontinued Start: 07-19-2023 insulin glargi ne (BASAGLAR KWIKPEN U-100 INSULIN) 100 unit/mL (3 mL) Inject 32 Units subcutaneously daily at bedtime. 0 07/19/2023 Active Start: 07-19-2023 insulin glargi ne (BASAGLAR KWIKPEN U-100 INSULIN) 100 unit/mL (3 mL) Inject 32 Units subcutaneously daily at bedtime. 0 07/19/2023 Active Start: 06-09-2023 End: 07-19-2023 insulin glargine (BASAGLAR K WIKPEN U-100 INSULIN) 100 unit/mL (3 mL) Inject 25 Units subcutaneously daily at bedtime. 5 Each 06/09/2023 07/19/2023 Discontinued Start: 05-11-2023 End: 06-09-2023 insulin glargine (BASAGLAR K WIKPEN U-100 INSULIN) 100 unit/mL (3 mL) Inject 22 Units subcutaneously daily at bedtime. 5 Each 05/11/2023 06/09/2023 Discontinued (Adjust Sig - Block E-Cancel) Start: 04-22-2023 End: 05-11-2023 insulin glargine (BASAGLAR K WIKPEN U-100 INSULIN) 100 unit/mL (3 mL) Inject 18 Units subcutaneously daily at bedtime. 5 Each 04/22/2023 05/11/2023 Discontinued Start: 11-23-2022 End: 04-22-2023 insulin glargine (BASAGLAR K WIKPEN U-100 INSULIN) 100 unit/mL (3 mL) Inject 14 Units subcutaneously daily at bedtime. 5 Each 02/02/2023 04/22/2023 Discontinued Start: 08-06-2022 inject 10 [IU] by ibrahim bcutaneous injection once daily at bedtime insulin glargine (BASAGLAR KWIKPEN U-100 INSULIN) 100 unit/mL (3 mL) Inject 10 Units subcutaneously daily at bedtime. 5 Each 08/06/2022 Active Start: 08-06-2022 inject 10 [IU] by ibrahim bcutaneous injection once daily at bedtime insulin glargine (BASAGLAR KWIKPEN U-100 INSULIN) 100 unit/mL (3 mL) Inject 10 Units subcutaneously daily at bedtime. 5 Each 08/06/2022 Active Start: 12-30-2021 insulin glargi ne (LANTUS SOLOSTAR U-100 INSULIN) 100 unit/mL (3 mL) Indications: Type 2 diabetes mellitus with diabetic neuropathy, with long-term current use of insulin (HCC) , Type 2 diabetes mellitus with diabetic peripheral angiopathy without gangrene, with long-term current use of insulin (HCC) , Type 2 diabetes mellitus with microalbuminuria, with long-term current use of insulin (HCC) Inject 20 Units subcutaneously every morning. 30 mL 3 12/30/2021 Suspended Start: 09-03-2021 End: 12-30-2021 insulin glargine (LANTUS ABDI OSTAR U-100 INSULIN) 100 unit/mL (3 mL) Indications: Uncontrolled type 2 diabetes mellitus with diabetic polyneuropathy, with long-term current use of insulin Inject 20 Units subcutaneously every morning. 30 mL 3 09/03/2021 12/30/2021 Discontinued Comment on above: Inject 20 Units subc utaneously every morning. Inject 10 Units subc utaneously daily at bedtime. Inject 14 Units subc utaneously daily at bedtime. Inject 18 Units subc utaneously daily at bedtime. Inject 22 Units subc utaneously daily at bedtime. Inject 25 Units subc utaneously daily at bedtime. Inject 32 Units subc utaneously daily at bedtime. Inject 20 Units subc utaneously daily at bedtime. 3 ml insulin isophane, human 100 unt/ml pen injector (20 sources) Start: 09-03-2021 End: 12-30-2021 insulin NPH (HumuLIN N,NovoLIN N) pen Indications: Type 2 diabetes mellitus with diabetic neuropathy, with long-term current use of insulin (HCC) , Type 2 diabetes mellitus with diabetic peripheral angiopathy without gangrene, with long-term current use of insulin (HCC) , Type 2 diabetes mellitus with microalbuminuria, with long-term current use of insulin (HCC) Inject 45 Units subcutaneously daily at bedtime. DX: E11.42, E11.65, Z79.4 45 mL 3 12/30/2021 Suspended Comment on above: Inject 40 Units subc utaneously daily at bedtime. DX: E11.42, E11.65, Z79.4 Inject 45 Units subc utaneously daily at bedtime. DX: E11.42, E11.65, Z79.4 insulin lispro (HUMALOG KWIKPEN) 100 unit/mL (20 sources) Start: 06-09-2023 insulin lispro (HUMALOG KWIKPEN) 100 unit/mL Indications: Type 2 diabetes mellitus with diabetic peripheral angiopathy without gangrene, with long-term current use of insulin (HCC) Inject 18 Units subcutaneously three times daily before meals. Plus additional 2 units if glucose is over 250. 5 Each 2 06/09/2023 Active Start: 05-11-2023 End: 06-09-2023 insulin lispro (HUMALOG KWIK PEN) 100 unit/mL Indications: Type 2 diabetes mellitus with diabetic peripheral angiopathy without gangrene, with long-term current use of insulin (HCC) Inject 16 Units subcutaneously three times daily before meals. Plus additional 2 units if glucose is over 250. 5 Each 2 05/11/2023 06/09/2023 Discontinued (Adjust Sig - Block E-Cancel) Start: 05-11-2023 insulin lispro (HUMALOG KWIKPEN) 100 unit/mL Indications: Type 2 diabetes mellitus with diabetic peripheral angiopathy without gangrene, with long-term current use of insulin (HCC) Inject 16 Units subcutaneously three times daily before meals. Plus additional 2 units if glucose is over 250. 5 Each 2 05/11/2023 Active Start: 04-22-2023 End: 05-11-2023 insulin lispro (HUMALOG KWIK PEN) 100 unit/mL Indications: Type 2 diabetes mellitus with diabetic peripheral angiopathy without gangrene, with long-term current use of insulin (HCC) Inject 12 Units subcutaneously three times daily before meals. Plus additional 2 units if glucose is over 250. 5 Each 2 04/22/2023 05/11/2023 Discontinued Start: 04-22-2023 insulin lispro (HUMALOG KWIKPEN) 100 unit/mL Indications: Type 2 diabetes mellitus with diabetic peripheral angiopathy without gangrene, with long-term current use of insulin (HCC) Inject 12 Units subcutaneously three times daily before meals. Plus additional 2 units if glucose is over 250. 5 Each 2 04/22/2023 Active Start: 10-19-2022 End: 04-22-2023 inject 10 [IU] by subcutaneous injection three times daily before mealtime insulin lispro (HUMALOG KWIKPEN) 100 unit/mL Indications: Type 2 diabetes mellitus with diabetic peripheral angiopathy without gangrene, with long-term current use of insulin (HCC) Inject 10 Units subcutaneously three times daily before meals. 5 Each 2 10/19/2022 04/22/2023 Discontinued Start: 10-19-2022 inject 10 [IU] by ibrahim bcutaneous injection three times daily before mealtime insulin lispro (HUMALOG KWIKPEN) 100 unit/mL Indications: Type 2 diabetes mellitus with diabetic peripheral angiopathy without gangrene, with long-term current use of insulin (HCC) Inject 10 Units subcutaneously three times daily before meals. 5 Each 2 10/19/2022 Active Comment on above: Inject 10 Units subc utaneously three times daily before meals. Inject 12 Units subc utaneously three times daily before meals. Plus additional 2 units if glucose is over 250. Inject 16 Units subc utaneously three times daily before meals. Plus additional 2 units if glucose is over 250. Inject 18 Units subc utaneously three times daily before meals. Plus additional 2 units if glucose is over 250. 24 hr isosorbide mononitrate 60 mg extended release oral tablet (16 sources) Nitrate Vasodilator Start: End: 025 take 1 tablet by mouth twice daily isosorbide mononitrate ER (IMDUR) 60 mg 24 hr tablet Take 1 tablet by mouth two times a day. 180 tablet 3 02/28/2025 Suspended iv contrast (will be provided with radiology test) (6 sources) Start: End: inject 1 dose intravenously once iv contrast (will be provided with radiology test) CTA ABD/PEL LE - No IV access, insert saline lock prior to the sedation, infusion, injection for imaging exam. Discontinue saline lock post exam. If Pt. has a central line or IVAD, may access for administration according to line specific nursing protocol. Once exam is complete flush line and de-access according to line specific nursing protocol in the CT contrast administration guidelines link. 1 Each 0 06/29/2023 06/30/2023 Start: 06-29-2023 End: 06-30-2023 inject 1 dose intravenously once iv contrast (will be provided with radiology test) CTA ABD/PEL LE - No IV access, insert saline lock prior to the sedation, infusion, injection for imaging exam. Discontinue saline lock post exam. If Pt. has a central line or IVAD, may access for administration according to line specific nursing protocol. Once exam is complete flush line and de-access according to line specific nursing protocol in the CT contrast administration guidelines link. 1 Each 0 06/29/2023 06/30/2023 Active Start: 04-21-2022 End: 04-22-2022 inject 1 dose intravenously once iv contrast (will be provided with radiology test) CTA ABD/PEL LE - No IV access, insert saline lock prior to the sedation, infusion, injection for imaging exam. Discontinue saline lock post exam. If Pt. has a central line or IVAD, may access for administration according to line specific nursing protocol. Once exam is complete flush line and de-access according to line specific nursing protocol in the CT contrast administration guidelines link. 1 Each 0 04/21/2022 04/22/2022 Active Start: 04-20-2022 End: 04-21-2022 inject 1 dose intravenously once iv contrast (will be provided with radiology test) CTA ABD/PEL LE - No IV access, insert saline lock prior to the sedation, infusion, injection for imaging exam. Discontinue saline lock post exam. If Pt. has a central line or IVAD, may access for administration according to line specific nursing protocol. Once exam is complete flush line and de-access according to line specific nursing protocol in the CT contrast administration guidelines link. 1 Each 0 04/20/2022 04/21/2022 Active Comment on above: CTA ABD/PEL LE - No IV access, insert saline lock prior to the sedation, infusion, injection for imaging exam. Discontinue saline lock post exam. If Pt. has a central line or IVAD, may access for administration according to line specific nursing protocol. Once exam is complete flush line and de-access according to line specific nursing protocol in the CT contrast administration guidelines link. methylPREDNISolone (7 sources) Corticosteroid Start: 03-25-2022 End: 03-30-2022 methylPREDNISolone (MEDROL, YONIS,) 4 mg Dose-Pack Follow dosing instructions, take with food. 1 Package 0 03/25/2022 03/30/2022 Start: 03-25-2022 End: 03-30-2022 methylPREDNISolone (MEDROL, YONIS,) 4 mg Dose-Pack Follow dosing instructions, take with food. 1 Package 0 03/25/2022 03/30/2022 Active Start: 03-20-2022 End: 03-26-2022 methylPREDNISolone (MEDROL, YONIS,) 4 mg Dose-Pack Follow dosing instructions, take with food. 1 Package 0 03/20/2022 03/26/2022 Active Comment on above: Follow dosing instru ctions, take with food. NIFEdipine 90 mg osmotic 24 hr extended release oral tablet (20 sources) Dihydropyridine Calcium Channel Kezia Start: 11-05-19 End: 02-29-20 take 1 tablet by mouth once daily NIFEdipine ER (PROCARDIA XL) 90 mg 24 hr tablet Take 1 tablet by mouth once daily. 90 tablet 3 02/28/2025 Suspended nitroglycerin 0.4 mg sublingual tablet (19 sources) Nitrate Vasodilator Start: 01-02-20 nitroglycerin sublingual (NITROQUICK) 0.4 mg SL tablet Take 1 tablet by mouth as needed for chest pain. FOR CHEST PAIN. IF NO PAIN RELIEF, CALL 911 25 tablet 1 01/01/2025 Suspended ofloxacin 3 mg/ml ophthalmic solution (20 sources) Quinolone Antimicrobial Start: 11-26-19 ofloxacin (OCUFLOX) 0.3 % ophthalmic solution Start: 11-25-2022 take 1 drop(s) into the eye(s) four times daily ofloxacin (OCUFLOX) 0.3 % ophthalmic solution INSTILL 1 DROP INTO LEFT EYE 4 TIMES DAILY 0 11/25/2022 Active Comment on above: INSTILL 1 DROP INTO LEFT EYE 4 TIMES DAILY oxyCODONE hydrochloride 5 mg oral tablet (18 sources) Opioid Agonist Start: End: take 2.5 mg by mouth every six hours as needed oxyCODONE IR (ROXICODONE) 5 mg immediate release tablet Take 0.5 tablets by mouth every 6 hours as needed for up to 1 day. 1 tablet 05/02/2025 05/02/2025 Discontinued Start: 07-06-2022 End: 07-13-2022 take 1 tablet by mouth every eight hours as needed for pain oxyCODONE IR (ROXICODONE) 5 mg immediate release tablet Indications: Post-operative pain Take 1 tablet by mouth every 8 hours as needed for pain for up to 7 days. 21 tablet 0 07/06/2022 07/13/2022 Active Start: 06-19-2022 End: 06-26-2022 take 1 tablet by mouth every eight hours as needed for pain oxyCODONE IR (ROXICODONE) 5 mg immediate release tablet Indications: Post-operative pain Take 1 tablet by mouth every 8 hours as needed for pain for up to 7 days. 21 tablet 0 06/19/2022 06/26/2022 Active Start: 06-08-2022 End: 06-15-2022 take 1 tablet by mouth every eight hours as needed for pain oxyCODONE IR (ROXICODONE) 5 mg immediate release tablet Indications: Post-operative pain Take 1 tablet by mouth every 8 hours as needed for pain for up to 7 days. 21 tablet 0 06/08/2022 06/15/2022 Active Start: 06-02-2022 End: 06-05-2022 take 1 tablet by mouth every eight hours as needed for pain oxyCODONE IR (ROXICODONE) 5 mg immediate release tablet Indications: Post-operative pain Take 1 tablet by mouth every 8 hours as needed for pain for up to 3 days. 9 tablet 0 06/02/2022 06/05/2022 Active Start: 05-20-2022 End: 05-31-2022 take 1 tablet by mouth every eight hours as needed for pain oxyCODONE IR (ROXICODONE) 5 mg immediate release tablet Indications: Post-operative pain Take 1 tablet by mouth every 8 hours as needed for pain for up to 10 days. 30 tablet 0 05/21/2022 05/31/2022 Active Comment on above: Take 1 tablet by elisa every 8 hours as needed for pain. Take 1 tablet by elisa every 8 hours as needed for pain for up to 10 days. Take 1 tablet by elisa every 8 hours as needed for pain for up to 3 days. Take 1 tablet by elisa every 8 hours as needed for pain for up to 7 days. prednisoLONE acetate 10 mg/ml ophthalmic suspension (20 sources) Corticosteroid Start: 11-25-2022 prednisoLONE acetate (PRED FORTE) 1 % ophthalmic suspension Start: 11-25-2022 prednisoLONE a cetate (PRED FORTE) 1 % ophthalmic suspension INSTILL 1 DROP INTO LEFT EYE 4 TIMES DAILY 0 11/25/2022 Active Comment on above: INSTILL 1 DROP INTO LEFT EYE 4 TIMES DAILY predniSONE 20 mg oral tablet (3 sources) Start: 04-02-20 End: 12-31-19 take 1 tablet by mouth twice daily predniSONE (DELTASONE) 20 mg tablet Take 20 mg by mouth twice daily. 0 04/02/2021 12/30/2021 Discontinued Comment on above: Take 20 mg by mouth twice daily. ramipril 10 mg oral capsule (20 sources) Angiotensin Converting Enzyme Inhibitor Start: 09-18-20 End: 03-27-20 22 take 1 capsule by mouth once daily ramipril (ALTACE) 10 mg capsule Take 1 capsule by mouth once daily. 90 capsule 3 03/27/2022 Suspended Comment on above: Take 1 capsule by mo [facility] once daily. spironolactone 25 mg oral tablet (20 sources) Aldosterone Antagonist Start: 10-01-19 End: 09-23-19 take 1 tablet by mouth once daily spironolactone (ALDACTONE) 25 mg tablet Take 1 tablet by mouth once daily. 90 tablet 1 03/27/2024 Suspended Start: 05-20-2022 End: 08-06-2022 take 1 tablet by mouth once daily spironolactone (ALDACTONE) 25 mg tablet Take 1 tablet by mouth once daily. 30 tablet 11 08/06/2022 Active Comment on above: Take 1 tablet by elisa th once daily. traMADol hydrochloride 50 mg oral tablet (20 sources) Opioid Agonist Start: 2 End: 2 take 1 tablet by mouth every six hours as needed for pain traMADol (ULTRAM) 50 mg tablet Indications: DDD (degenerative disc disease), lumbar , Right sided sciatica Take 1 tablet by mouth every 6 hours as needed for pain. 40 tablet 0 03/31/2022 04/23/2022 Discontinued Start: 03-13-2022 take 1 tablet by elisa th every six hours as needed for pain traMADol (ULTRAM) 50 mg tablet Indications: DDD (degenerative disc disease), lumbar , Right sided sciatica Take 1 tablet by mouth every 6 hours as needed for pain. 40 tablet 0 03/13/2022 Active Comment on above: Take 1 tablet by elisa th every 6 hours as needed for pain. Take 1 tablet by elisa th every 6 hours as needed for pain. Do not start before March 22, 2022. valACYclovir 1000 mg oral tablet (20 sources) Herpesvirus Nucleoside Analog DNA Polymerase Inhibitor, Herpes Simplex Virus Nucleoside Analog DNA Polymerase Inhibitor, Herpes Zoster Virus Nucleoside Analog DNA Polymerase Inhibitor Start: 1 End: 2 take 1 tablet by mouth three times daily valACYclovir (VALTREX) 1 gram Take 1 tablet by mouth three times daily. 0 03/31/2021 04/23/2022 Discontinued Comment on above: Take 1 tablet by elisa th three times daily. Problems Active Problems Problem Classification Problem Date Documented Date Episodic/Chronic Acute myocardial infarction (20 sources) Myocardial infarction; Translations: [Non-ST elevation (NSTEMI) myocardial infarction] Onset: 5 Resolved: 5 05-19-2022 Chronic Aortic and peripheral arterial embolism or thrombosis (20 sources) Occlusion of aortoiliac artery; Translations: [Other arterial embolism and thrombosis of abdominal aorta] Onset: 4 Chronic Aortic; peripheral; and visceral artery aneurysms (20 sources) Dissection of artery of upper extremity; Translations: [Dissection of other artery] Onset: 5 11-03-2024 Chronic Cardiac dysrhythmias (1 source) Tachycardia; Translations: [Tachycardia, unspecified] 07-19-2023 Episodic Cataract (1 source) Incipient senile cataract; Translations: [Other age-related incipient cataract, right eye] 04-22-2023 Chronic Chronic kidney disease (8 sources) Chronic kidney disease stage 3A ; Translations: [Stage 3a chronic kidney disease (HCC)] Onset: 5 11-08-2024 Chronic Chronic obstructive pulmonary disease and bronchiectasis (20 sources) Chronic bronchitis; Translations: [Unspecified chronic bronchitis] Onset: 4 10-21-2023 Chronic Chronic ulcer of skin (13 sources) Non-pressure chronic ulcer of other part of right foot with unspecified severity; Translations: [Ulcer of other part of foot] Onset: 5 07-16-2023 Chronic Congestive heart failure; nonhypertensive (20 sources) Heart failure with reduced ejection fraction; Translations: [Unspecified systolic (congestive) heart failure] Onset: 2 05-19-2022 Chronic Coronary atherosclerosis and other heart disease (20 sources) Coronary atherosclerosis; Translations: [Atherosclerotic heart disease of [place] coronary artery without angina pectoris] Onset: 4 09-16-2021 Chronic Coronary atherosclerosis and other heart disease (2 sources) Coronary angioplasty status; Translations: [Presence of coronary angioplasty implant and graft] Onset: 5 Episodic Deficiency and other anemia (12 sources) Anemia; Translations: [Anemia, unspecified] Onset: 5 Episodic Deficiency and other anemia (1 source) Anemia, unspecified; Translations: [Anemia, unspecified type] Onset: 5 Episodic Diabetes mellitus with complications (20 sources) Type 2 diabetes mellitus; Translations: [Type 2 diabetes mellitus with diabetic neuropathy, unspecified] Onset: 2 Chronic Disorders of lipid metabolism (20 sources) Mixed hyperlipidemia; Translations: [Mixed hyperlipidemia] Onset: 7 07-25-2017 Chronic Esophageal disorders (20 sources) Gastroesophageal reflux disease; Translations: [Gastro-esophageal reflux disease without esophagitis] Onset: 2 02-28-2022 Chronic Essential hypertension (20 sources) Essential hypertension; Translations: [Essential (primary) hypertension] Onset: 6 Chronic Gangrene (1 source) Atherosclerosis of artery of lower limb; Translations: [Atherosclerosis of [place] arteries of extremities with gangrene, left leg] Chronic Gangrene (3 sources) Gangrenous disorder; Translations: [Gangrene, not elsewhere classified] Episodic Genitourinary symptoms and ill-defined conditions (4 sources) Retention of urine; Translations: [Retention of urine, unspecified] Onset: 5 04-27-2025 Episodic Hyperplasia of prostate (4 sources) Benign prostatic hyperplasia; Translations: [Benign prostatic hyperplasia without lower urinary tract symptoms] Onset: 5 04-05-2025 Chronic Hypertension with complications and secondary hypertension (19 sources) Hypertensive emergency; Translations: [Hypertensive emergency] Onset: 5 02-24-2025 Chronic Immunizations and screening for infectious disease (8 sources) Patient encounter status; Translations: [Encounter for immunization] Onset: 5 Episodic Mood disorders (2 sources) Depressive disorder; Translations: [Depressive disorder] 04-22-2023 Chronic Nutritional deficiencies (20 sources) Undernutrition; Translations: [Mild protein-calorie malnutrition] Onset: 2 Resolved: 3 04-27-2022 Chronic Occlusion or stenosis of precerebral arteries (20 sources) Carotid artery stenosis; Translations: [Occlusion and stenosis of unspecified carotid artery] Onset: 4 09-04-2016 Chronic Open wounds of extremities (2 sources) Open wound of lesser toe of right foot; Translations: [Unspecified open wound of right lesser toe(s) without damage to nail, initial encounter] 06-29-2023 Episodic Other aftercare (3 sources) Post-discharge follow-up; Translations: [Encounter for follow-up examination after completed treatment for conditions other than malignant neoplasm] Episodic Other bone disease and musculoskeletal deformities (20 sources) History of amputation of left leg through femur; Translations: [Acquired absence of left leg above knee] Onset: 2 05-19-2022 Chronic Other bone disease and musculoskeletal deformities (20 sources) History of amputation of right leg through femur; Translations: [Acquired absence of right leg above knee] Onset: 4 09-29-2023 Chronic Other bone disease and musculoskeletal deformities (9 sources) 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; Translations: [Acquired absence of right leg above knee] Onset: 4 10-21-2023 Chronic Other bone disease and musculoskeletal deformities (2 sources) Acquired absence of right leg above knee; Translations: [S/P AKA (above knee amputation) bilateral (HCC)] Onset: 4 Chronic Other bone disease and musculoskeletal deformities (3 sources) Acquired absence of left leg above knee; Translations: [S/P AKA (above knee amputation) bilateral (HCC)] Onset: 4 Chronic Other circulatory disease (2 sources) Disorder of artery; Translations: [Disorder of arteries and arterioles, unspecified] Chronic Other circulatory disease (20 sources) History of cardiovascular surgery; Translations: [Presence of other vascular implants and grafts] Onset: 2 05-20-2022 Chronic Other circulatory disease (1 source) Presence of other vascular implants and grafts; Translations: [S/P vascular bypass] Onset: 2 Chronic Other circulatory disease (3 sources) Abnormal peripheral pulse; Translations: [Other specified symptoms and signs involving the circulatory and respiratory systems] Episodic Other connective tissue disease (1 source) Falls; Translations: [Repeated falls] 10-21-2023 Episodic Other connective tissue disease (3 sources) Neuropathic pain; Translations: [Neuralgia and neuritis, unspecified] 07-14-2024 Episodic Other lower respiratory disease (1 source) Multiple nodules of lung; Translations: [Other nonspecific abnormal finding of lung field] Episodic Other lower respiratory disease (20 sources) Dyspnea; Translations: [Shortness of breath] Resolved: 1 04-04-2021 Episodic Other lower respiratory disease (4 sources) Acute pulmonary edema; Translations: [Acute pulmonary edema] Onset: 5 04-08-2025 Episodic Other lower respiratory disease (1 source) Acute pulmonary edema; Translations: [Acute pulmonary edema (HCC)] Onset: 5 Episodic Other nervous system disorders (1 source) Chronic pain; Translations: [Other chronic pain] Chronic Other nervous system disorders (20 sources) Phantom pain following amputation of lower limb; Translations: [Phantom limb syndrome with pain] Onset: 3 11-23-2022 Chronic Other nervous system disorders (4 sources) Neuropathy; Translations: [Polyneuropathy, unspecified] Onset: 5 04-05-2025 Chronic Other nervous system disorders (1 source) Skin sensation disturbance; Translations: [Unspecified disturbances of skin sensation] Episodic Other nervous system disorders (4 sources) Postoperative pain ; Translations: [Other acute postprocedural pain] Episodic Other nervous system disorders (1 source) Abnormal gait; Translations: [Unspecified abnormalities of gait and mobility] 10-21-2023 Episodic Other nutritional; endocrine; and metabolic disorders (2 sources) Obese class I; Translations: [Obesity, unspecified] Onset: 9 09-30-2018 Chronic Other nutritional; endocrine; and metabolic disorders (20 sources) Body mass index 40+ - severely obese; Translations: [Morbid (severe) obesity due to excess calories] Onset: 5 10-04-2024 Chronic Other screening for suspected conditions (not mental disorders or infectious disease) (2 sources) Radiology result abnormal; Translations: [Abnormal findings on diagnostic imaging of other specified body structures] 07-16-2023 Chronic Other screening for suspected conditions (not mental disorders or infectious disease) (5 sources) Electrocardiogram abnormal; Translations: [Abnormal electrocardiogram [ECG] [EKG]] Onset: 5 07-20-2023 Episodic Other skin disorders (4 sources) Impaired skin integrity; Translations: [Unspecified skin changes] Onset: 5 04-18-2025 Episodic Other upper respiratory infections (1 source) Bacterial sinusitis; Translations: [Chronic sinusitis, unspecified] Chronic Other upper respiratory infections (1 source) Viral upper respiratory tract infection; Translations: [Acute upper respiratory infection, unspecified] 07-25-2024 Episodic Peripheral and visceral atherosclerosis (20 sources) Peripheral vascular disease; Translations: [Peripheral vascular disease, unspecified] Onset: 6 Resolved: 3 03-29-2017 Chronic Pneumonia (except that caused by tuberculosis or sexually transmitted disease) (1 source) Pneumonia, unspecified organism; Translations: [Pneumonia due to infectious organism, unspecified laterality, unspecified part of lung] Onset: 5 Episodic Pulmonary heart disease (4 sources) Pulmonary veno-occlusive disease; 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 pulmonary hypertension] Onset: 5 04-08-2025 Chronic Residual codes; unclassified (20 sources) Sleep apnea; Translations: [Sleep apnea, unspecified] Onset: 5 10-04-2024 Chronic Residual codes; unclassified (4 sources) Not for resuscitation; Translations: [Do not resuscitate] Onset: 5 04-24-2025 Episodic Respiratory failure; insufficiency; arrest (adult) (20 sources) Acute respiratory failure; Translations: [Acute respiratory failure with hypoxia] Onset: 2 Resolved: 2 05-19-2022 Episodic Spondylosis; intervertebral disc disorders; other back problems (3 sources) Degeneration of lumbar intervertebral disc; Translations: [Other intervertebral disc degeneration, lumbar region] Chronic Superficial injury; contusion (4 sources) Abrasion of lip, initial encounter; Translations: [Abrasion or friction burn of face, neck, and scalp except eye, without mention of infection] Onset: 5 04-11-2025 Episodic Unclassified (1 source) Obesity, Class III, BMI 40-49.9 (morbid obesity) (HCC); Translations: [Obesity, Class III, BMI 40-49.9 (morbid obesity) (HCC)] Onset: 5 Unclassified (1 source) New Patient Evaluation Onset: 4 Past or Other Problems Problem Classification Problem Date Documented Da te Episodic/Chronic Abdominal pain (20 sources) Left lower quadrant pain; Translations: [Left lower quadrant pain] Resolved: 5 09-08-2015 Episodic Acute and unspecified renal failure (20 sources) Acute renal failure syndrome; Translations: [Acute kidney failure, unspecified] Onset: 2 Resolved: 2 05-19-2022 Episodic Blindness and vision defects (20 sources) Diplopia; Translations: [Diplopia] Onset: 7 Resolved: 9 09-30-2018 Episodic Complications of surgical procedures or medical care (2 sources) Limb stump pain; Translations: [Other complications of amputation stump] Onset: 4 06-06-2024 Episodic Fluid and electrolyte disorders (20 sources) Hyperkalemia; Translations: [Hyperkalemia] Onset: 5 04-19-2024 Episodic Headache; including migraine (20 sources) Headache; Translations: [Headache] Resolved: 5 09-08-2015 Episodic Infective arthritis and osteomyelitis (except that caused by tuberculosis or sexually transmitted disease) (20 sources) Acute osteomyelitis of foot; Translations: [Other acute osteomyelitis, unspecified ankle and foot] Onset: 3 Resolved: 4 09-29-2023 Chronic Nonspecific chest pain (20 sources) Chest pain; Translations: [Chest pain, unspecified] Onset: 5 02-23-2025 Episodic Other aftercare (20 sources) Long-term current use of anticoagulant; Translations: [long term care administrator (current) use of anticoagulants] Onset: 7 03-29-2017 Episodic Other aftercare (5 sources) correction (current) use of insulin; Translations: [Type 2 diabetes mellitus with diabetic neuropathy, with long-term current use of insulin (HCC)] Onset: 1 Episodic Other aftercare (1 source) correction (current) use of anticoagulants; Translations: [Chronic anticoagulation] Onset: 2 Episodic Other and unspecified benign neoplasm (20 sources) History of polyp of colon; Translations: [Personal history of colonic polyps] Onset: 3 Episodic Other circulatory disease (20 sources) History of cerebrovascular accident; Translations: [Personal history of transient ischemic attack (TIA), and cerebral infarction without residual deficits] Onset: 9 09-15-2021 Episodic Other circulatory disease (20 sources) H/O: heart disorder; Translations: [Personal history of other diseases of the circulatory system] Onset: 4 09-29-2023 Episodic Other circulatory disease (1 source) Personal history of other diseases of the circulatory system; Translations: [History of CAD (coronary artery disease)] Onset: 4 Episodic Other circulatory disease (1 source) Personal history of transient ischemic attack (TIA), and cerebral infarction without residual deficits; Translations: [History of CVA (cerebrovascular accident)] Onset: 4 Episodic Other connective tissue disease (20 sources) Paraparesis; Translations: [Other symptoms and signs involving the musculoskeletal system] Onset: 3 Episodic Other connective tissue disease (20 sources) Other symptoms and signs involving the musculoskeletal system; Translations: [Other musculoskeletal symptoms referable to limbs] Onset: 3 11-03-2022 Episodic Other connective tissue disease (20 sources) Pain in limb; Translations: [Pain in unspecified limb] Resolved: 5 09-08-2015 Episodic Other connective tissue disease (1 source) Pain in unspecified limb; Translations: [Amputation stump pain (HCC) (HCC)] Onset: 4 Episodic Other eye disorders (20 sources) Abducens nerve palsy; Translations: [Sixth [abducent] nerve palsy, left eye] Onset: 7 Resolved: 9 09-30-2018 Episodic Other gastrointestinal disorders (20 sources) Occult blood in stools; Translations: [Other fecal abnormalities] Onset: 3 Episodic Other gastrointestinal disorders (20 sources) Diarrhea; Translations: [Diarrhea, unspecified] Onset: 5 Resolved: 5 10-03-2024 Episodic Other lower respiratory disease (20 sources) Nodule of lung; Translations: [Solitary pulmonary nodule] Onset: 2 05-20-2022 Episodic Other nervous system disorders (20 sources) Difficulty walking; Translations: [Difficulty in walking, not elsewhere classified] Onset: 3 Resolved: 4 Chronic Other nutritional; endocrine; and metabolic disorders (20 sources) Obesity; Translations: [Obesity, unspecified] Onset: 2 Resolved: 4 Chronic Other nutritional; endocrine; and metabolic disorders (20 sources) Hypomagnesemia; Translations: [Hypomagnesemia] Onset: 5 Resolved: 5 10-05-2024 Chronic Other upper respiratory disease (20 sources) Bleeding from nose; Translations: [Epistaxis] Onset: 2 Resolved: 2 05-19-2022 Episodic Phlebitis; thrombophlebitis and thromboembolism (20 sources) Thrombophlebitis of superficial vein of left upper limb; Translations: [Phlebitis and thrombophlebitis of other sites] Onset: 5 11-03-2024 Episodic Septicemia (except in labor) (20 sources) Sepsis; Translations: [Sepsis, unspecified organism] Onset: 3 Resolved: 4 09-29-2023 Episodic Skin and subcutaneous tissue infections (20 sources) Soft tissue infection; Translations: [Local infection of the skin and subcutaneous tissue, unspecified] Onset: 5 11-03-2024 Episodic Spondylosis; intervertebral disc disorders; other back problems (20 sources) Acute back pain with sciatica; Translations: [Lumbago with sciatica, right side] Onset: 2 Episodic Results Test Name Value Interpretation Reference Range Facility Basic Metabolic Profile (BMP )on 05-29-2025 BUN/CRE 18.3 RATIO Normal 10-20 [facility] Comment on above: Order Comment: 104.1 Performed By: #### L 500.2500, L100.0100, [id number] #### [facility] [address] [place], [address] Calcium [Mass/Vol] 8.4 mg/dL Normal 7.6-11.0 [facility] Comment on above: Order Comment: 104.1 Performed By: #### L 500.2500, L100.0100, [id number] #### [facility] [address] [place], [address] Chloride [Moles/Vol] 104 mmol/L Normal 98-108 [facility] Comment on above: Order Comment: 104.1 Performed By: #### L 500.2500, L100.0100, [id number] #### [facility] [address] [place], [address] CO2 [Moles/Vol] 24.3 mmol/L Normal 21.0-32.0 [facility] Comment on above: Order Comment: 104.1 Performed By: #### L 500.2500, L100.0100, [id number] #### [facility] [address] [place], [address] Creatinine [Mass/Vol] 0.79 mg/dL Normal 0.70-1.20 [facility] Comment on above: Order Comment: 104.1 Performed By: #### L 500.2500, L100.0100, [id number] #### [facility] [address] [place], [address] GAP 11 Normal 5-15 [facility] Comment on above: Order Comment: 104.1 Performed By: #### L 500.2500, L100.0100, [id number] #### [facility] [address] [place], [address] GFR/1.73 sq M.predicted among non-blacks MDRD (S/P/Bld) [Vol rate/Area] 94 mL/min/{1.73_m2} Normal >60 [facility] Comment on above: Order Comment: 104.1 Result Comment: mL/m in/1.73m2 CKD-EPI Creatinine Equation (2020) Performed By: #### L 500.2500, L100.0100, [id number] #### [facility] [address] [place], [address] Glucose [Mass/Vol] 116 mg/dL High 70-99 [facility] Comment on above: Order Comment: 104.1 Performed By: #### L 500.2500, L100.0100, [id number] #### [facility] [address] [place], [address] Potassium [Moles/Vol] 3.8 mmol/L Normal 3.3-5.1 [facility] Comment on above: Order Comment: 104.1 Performed By: #### L 500.2500, L100.0100, [id number] #### [facility] [address] [place], [address] Sodium [Moles/Vol] 140 mmol/L Normal 133-145 [facility] Comment on above: Order Comment: 104.1 Performed By: #### L 500.2500, L100.0100, [id number] #### [facility] [address] [place], [address] Urea nitrogen [Mass/Vol] 14 mg/dL Normal 4-19 [facility] Comment on above: Order Comment: 104.1 Performed By: #### L 500.2500, L100.0100, [id number] #### [facility] [address] [place], [address] CBC W/Diff, Automatedon 09-0 9-2024 Absolute Lymph 1.13 X10 3/uL Normal 0.83-4.51 [facility] Comment on above: Order Comment: 104.1 Performed By: #### L 500.2500, L100.0100, [id number] #### [facility] [address] [place], [address] Absolute Neut 6.6 X10 3/uL Normal 2.0-7.7 [facility] Comment on above: Order Comment: 104.1 Performed By: #### L 500.2500, L100.0100, [id number] #### [facility] [address] [place], [address] Basophils/100 WBC (Bld) 0.8 % Normal 0-1 [facility] Comment on above: Order Comment: 104.1 Performed By: #### L 500.2500, L100.0100, [id number] #### [facility] [address] [place], [address] Eosinophils/100 WBC (Bld) 3.5 % Normal 0-5 [facility] Comment on above: Order Comment: 104.1 Performed By: #### L 500.2500, L100.0100, [id number] #### [facility] [address] [place], [address] Erythrocyte distribution width (RBC) [Ratio] 15.9 % High 11.6-14.6 [facility] Comment on above: Order Comment: 104.1 Performed By: #### L 500.2500, L100.0100, [id number] #### [facility] [address] [place], [address] Hematocrit (Bld) [Volume fraction] 24.6 % Low 40-54 [facility] Comment on above: Order Comment: 104.1 Performed By: #### L 500.2500, L100.0100, [id number] #### [facility] [address] [place], [address] Hemoglobin (Bld) [Mass/Vol] 7.5 g/dL Low 13.0-16.5 [facility] Comment on above: Order Comment: 104.1 Performed By: #### L 500.2500, L100.0100, [id number] #### [facility] [address] [place], [address] IG% 0.800 Normal 0.0-0.9 [facility] Comment on above: Order Comment: 104.1 Result Comment: IG% - Immature Granulocytes (promyelocytes, myelocytes and metamyelocytes) > 1% indicates that a LEFT SHIFT is Present. Performed By: #### L 500.2500, L100.0100, [id number] #### [facility] [address] [place], [address] Lymphocytes/100 WBC (Bld) 12.5 % Low 19-41 [facility] Comment on above: Order Comment: 104.1 Performed By: #### L 500.2500, L100.0100, [id number] #### [facility] [address] [place], [address] MCH (RBC) [Entitic mass] 26.3 pg Low 27.0-32.0 [facility] Comment on above: Order Comment: 104.1 Performed By: #### L 500.2500, L100.0100, [id number] #### [facility] [address] [place], [address] MCHC (RBC) [Mass/Vol] 30.5 g/dL Low 32-36 [facility] Comment on above: Order Comment: 104.1 Performed By: #### L 500.2500, L100.0100, [id number] #### [facility] [address] [place], [address] MCV (RBC) [Entitic vol] 86.3 fL Normal 80-94 [facility] Comment on above: Order Comment: 104.1 Performed By: #### L 500.2500, L100.0100, [id number] #### [facility] [address] [place], [address] Monocytes/100 WBC (Bld) 9.7 % Normal 0-10 [facility] Comment on above: Order Comment: 104.1 Performed By: #### L 500.2500, L100.0100, [id number] #### [facility] [address] [place], [address] Neutrophils/100 WBC (Bld) 72.7 % High 47-70 [facility] Comment on above: Order Comment: 104.1 Performed By: #### L 500.2500, L100.0100, [id number] #### [facility] [address] [place], [address] Nucleated RBC (Bld) [#/Vol] 0 10*3/uL Normal 0-5 [facility] Comment on above: Order Comment: 104.1 Performed By: #### L 500.2500, L100.0100, [id number] #### [facility] [address] [place], [address] Platelet mean volume (Bld) [Entitic vol] 9.1 fL Normal 6.2-12.0 [facility] Comment on above: Order Comment: 104.1 Performed By: #### L 500.2500, L100.0100, [id number] #### [facility] [address] [place], [address] Platelets (Bld) [#/Vol] 357 10*3/uL Normal 150-450 [facility] Comment on above: Order Comment: 104.1 Performed By: #### L 500.2500, L100.0100, [id number] #### [facility] [address] [place], [address] RBC (Bld) [#/Vol] 2.85 10*6/uL Low 4.6-6.2 [facility] Comment on above: Order Comment: 104.1 Performed By: #### L 500.2500, L100.0100, [id number] #### [facility] Laboratory [address] [place], [address] RDW SD 50.3 fl High 35.1-43.9 [facility] Comment on above: Order Comment: 104.1 Performed By: #### L 500.2500, L100.0100, L501.6710 #### [facility] [address] [place], [address] WBC (Bld) [#/Vol] 9.1 10*3/uL Normal 4.4-11.0 [facility] Comment on above: Order Comment: 104.1 Performed By: #### L 500.2500, L100.0100, L501.6710 #### [facility] [address] [place], [address] CRPon 05-29-2025 C-REACTIVE PROT 33.50 mg/L High 0.0-3.0 [facility] Comment on above: Order Comment: 104.1 Performed By: #### L 500.2500, L100.0100, L501.6710 #### [facility] [address] [place], [address] CBC-Complete Blood Cnt No Yazmin mcmahonon 05-24-2025 Erythrocyte distribution width (RBC) [Ratio] 15.4 % High 11.6-14.6 [facility] Comment on above: Order Comment: 104.1 Performed By: #### L 100.0500 #### [facility] [address] [place], [address] Hematocrit (Bld) [Volume fraction] 24.3 % Low 40-54 [facility] Comment on above: Order Comment: 104.1 Performed By: #### L 100.0500 #### [facility] [address] [place], [address] Hemoglobin (Bld) [Mass/Vol] 7.5 g/dL Low 13.0-16.5 [facility] Comment on above: Order Comment: 104.1 Performed By: #### L 100.0500 #### [facility] [address] [place], [address] MCH (RBC) [Entitic mass] 26.4 pg Low 27.0-32.0 [facility] Comment on above: Order Comment: 104.1 Performed By: #### L 100.0500 #### [facility] [address] [place], [address] MCHC (RBC) [Mass/Vol] 30.9 g/dL Low 32-36 [facility] Comment on above: Order Comment: 104.1 Performed By: #### L 100.0500 #### [facility] [address] [place], [address] MCV (RBC) [Entitic vol] 85.6 fL Normal 80-94 [facility] Comment on above: Order Comment: 104.1 Performed By: #### L 100.0500 #### [facility] [address] [place], [address] Platelet mean volume (Bld) [Entitic vol] 8.9 fL Normal 6.2-12.0 [facility] Comment on above: Order Comment: 104.1 Performed By: #### L 100.0500 #### [facility] [address] [place], [address] Platelets (Bld) [#/Vol] 349 10*3/uL Normal 150-450 [facility] Comment on above: Order Comment: 104.1 Performed By: #### L 100.0500 #### [facility] [address] [place], [address] RBC (Bld) [#/Vol] 2.84 10*6/uL Low 4.6-6.2 [facility] Comment on above: Order Comment: 104.1 Performed By: #### L 100.0500 #### [facility] [address] [place], [address] RDW SD 48.9 fl High 35.1-43.9 [facility] Comment on above: Order Comment: 104.1 Performed By: #### L 100.0500 #### [facility] [address] [place], [address] WBC (Bld) [#/Vol] 8.2 10*3/uL Normal 4.4-11.0 [facility] Comment on above: Order Comment: 104.1 Performed By: #### L 100.0500 #### [facility] [address] [place], [address] Basic Metabolic Profile (BMP )on 05-22-2025 BUN/CRE 20.1 RATIO High 10-20 [facility] Comment on above: Order Comment: 104.1 Performed By: #### L 500.2500, L100.0100, L501.6710 #### [facility] [address] [place], [address] Calcium [Mass/Vol] 8.8 mg/dL Normal 7.6-11.0 [facility] Comment on above: Order Comment: 104.1 Performed By: #### L 500.2500, L100.0100, L501.6710 #### [facility] [address] [place], [address] Chloride [Moles/Vol] 101 mmol/L Normal 98-108 [facility] Comment on above: Order Comment: 104.1 Performed By: #### L 500.2500, L100.0100, L501.6710 #### [facility] [address] [place], [address] CO2 [Moles/Vol] 23.0 mmol/L Normal 21.0-32.0 [facility] Comment on above: Order Comment: 104.1 Performed By: #### L 500.2500, L100.0100, L501.6710 #### [facility] [address] [place], [address] Creatinine [Mass/Vol] 0.79 mg/dL Normal 0.70-1.20 [facility] Comment on above: Order Comment: 104.1 Performed By: #### L 500.2500, L100.0100, L501.6710 #### [facility] [address] [place], [address] GAP 11 Normal 5-15 [facility] Comment on above: Order Comment: 104.1 Performed By: #### L 500.2500, L100.0100, L501.6710 #### [facility] [address] [place], [address] GFR/1.73 sq M.predicted among non-blacks MDRD (S/P/Bld) [Vol rate/Area] 94 mL/min/{1.73_m2} Normal >60 [facility] Comment on above: Order Comment: 104.1 Result Comment: mL/m in/1.73m2 CKD-EPI Creatinine Equation (2020) Performed By: #### L 500.2500, L100.0100, L501.6710 #### [facility] [address] [place], [address] Glucose [Mass/Vol] 123 mg/dL High 70-99 [facility] Comment on above: Order Comment: 104.1 Performed By: #### L 500.2500, L100.0100, L501.6710 #### [facility] [address] [place], [address] Potassium [Moles/Vol] 4.4 mmol/L Normal 3.3-5.1 [facility] Comment on above: Order Comment: 104.1 Performed By: #### L 500.2500, L100.0100, L501.6710 #### [facility] [address] [place], [address] Sodium [Moles/Vol] 135 mmol/L Normal 133-145 [facility] Comment on above: Order Comment: 104.1 Performed By: #### L 500.2500, L100.0100, L501.6710 #### [facility] [address] [place], [address] Urea nitrogen [Mass/Vol] 16 mg/dL Normal 4-19 [facility] Comment on above: Order Comment: 104.1 Performed By: #### L 500.2500, L100.0100, L501.6710 #### [facility] [address] [place], [address] CBC W/Diff, Automatedon 09-0 2-2024 Absolute Lymph 0.98 X10 3/uL Normal 0.83-4.51 [facility] Comment on above: Order Comment: 104.1 Performed By: #### L 500.2500, L100.0100, L501.6710 #### [facility] [address] [place], [address] Absolute Neut 8.2 X10 3/uL High 2.0-7.7 [facility] Comment on above: Order Comment: 104.1 Performed By: #### L 500.2500, L100.0100, L501.6710 #### [facility] [address] [place], [address] Basophils/100 WBC (Bld) 0.4 % Normal 0-1 [facility] Comment on above: Order Comment: 104.1 Performed By: #### L 500.2500, L100.0100, L501.6710 #### [facility] [address] [place], [address] Eosinophils/100 WBC (Bld) 2.9 % Normal 0-5 [facility] Comment on above: Order Comment: 104.1 Performed By: #### L 500.2500, L100.0100, L501.6710 #### [facility] [address] [place], [address] Erythrocyte distribution width (RBC) [Ratio] 15.6 % High 11.6-14.6 [facility] Comment on above: Order Comment: 104.1 Performed By: #### L 500.2500, L100.0100, L501.6710 #### [facility] [address] [place], [address] Hematocrit (Bld) [Volume fraction] 24.5 % Low 40-54 [facility] Comment on above: Order Comment: 104.1 Performed By: #### L 500.2500, L100.0100, L501.6710 #### [facility] [address] [place], [address] Hemoglobin (Bld) [Mass/Vol] 7.7 g/dL Low 13.0-16.5 [facility] Comment on above: Order Comment: 104.1 Performed By: #### L 500.2500, L100.0100, L501.6710 #### [facility] [address] [place], [address] IG% 0.600 Normal 0.0-0.9 [facility] Comment on above: Order Comment: 104.1 Result Comment: IG% - Immature Granulocytes (promyelocytes, myelocytes and metamyelocytes) > 1% indicates that a LEFT SHIFT is Present. Performed By: #### L 500.2500, L100.0100, L501.6710 #### [facility] [address] [place], [address] Lymphocytes/100 WBC (Bld) 9.5 % Low 19-41 [facility] Comment on above: Order Comment: 104.1 Performed By: #### L 500.2500, L100.0100, L5.10 #### [facility] [address] [place], [address] MCH (RBC) [Entitic mass] 27.1 pg Normal 27.0-32.0 [facility] Comment on above: Order Comment: 104.1 Performed By: #### L 500.2500, L100.0100, L5.10 #### [facility] [address] [place], [address] MCHC (RBC) [Mass/Vol] 31.4 g/dL Low 32-36 [facility] Comment on above: Order Comment: 104.1 Performed By: #### L 500.2500, L100.0100, L501.10 #### [facility] [address] [place], [address] MCV (RBC) [Entitic vol] 86.3 fL Normal 80-94 [facility] Comment on above: Order Comment: 104.1 Performed By: #### L 500.2500, L100.0100, L501.10 #### [facility] [address] [place], [address] Monocytes/100 WBC (Bld) 7.4 % Normal 0-10 [facility] Comment on above: Order Comment: 104.1 Performed By: #### L 500.2500, L100.0100, L501.6710 #### [facility] [address] [place], [address] Neutrophils/100 WBC (Bld) 79.2 % High 47-70 [facility] Comment on above: Order Comment: 104.1 Performed By: #### L 500.2500, L100.0100, L501.6710 #### [facility] [address] [place], [address] Nucleated RBC (Bld) [#/Vol] 0 10*3/uL Normal 0-5 [facility] Comment on above: Order Comment: 104.1 Performed By: #### L 500.2500, L100.0100, L501.6710 #### [facility] [address] [place], [address] Platelet mean volume (Bld) [Entitic vol] 9.0 fL Normal 6.2-12.0 [facility] Comment on above: Order Comment: 104.1 Performed By: #### L 500.2500, L100.0100, L501.6710 #### [facility] [address] [place], [address] Platelets (Bld) [#/Vol] 365 10*3/uL Normal 150-450 [facility] Comment on above: Order Comment: 104.1 Performed By: #### L 500.2500, L100.0100, L501.6710 #### [facility] [address] [place], [address] RBC (Bld) [#/Vol] 2.84 10*6/uL Low 4.6-6.2 [facility] Comment on above: Order Comment: 104.1 Performed By: #### L 500.2500, L100.0100, L501.6710 #### [facility] [address] [place], [address] RDW SD 49.7 fl High 35.1-43.9 [facility] Comment on above: Order Comment: 104.1 Performed By: #### L 500.2500, L100.0100, L501.6710 #### [facility] [address] [place], [address] WBC (Bld) [#/Vol] 10.4 10*3/uL Normal 4.4-11.0 [facility] Comment on above: Order Comment: 104.1 Performed By: #### L 500.2500, L100.0100, L501.6710 #### [facility] [address] [place], [address] CRPon 05-22-2025 C-REACTIVE PROT 43.90 mg/L High 0.0-3.0 [facility] Comment on above: Order Comment: 104.1 Performed By: #### L 500.2500, L100.0100, L501.6710 #### [facility] [address] [place], [address] Wound Cultureon 05-18-2025 WC SACRUM, PURULENT MARCELINO INAGE FOR 1 DAY. Pending Escherichia coli Amount Growth 3+ Enterococcus avium Enterococcus avium Escherichia coli: REACTION Ampicillin Islt ELIANA <=2 S Ampicillin+Sulbac Islt ELIANA <=2 Cefepime Islt ELIANA <=0.12 S cefTRIAXone Islt ELIANA <=0.25 S Ciprofloxacin Islt ELIANA <=0.06 S B-Lactamase Extended Susc Islt NEG Gentamicin Islt ELIANA <=1 S levoFLOXacin Islt ELIANA <=0.12 S Meropenem Islt ELIANA <=0.25 S Pip+Tazo Islt ELIANA <=4 S TMP SMX Islt ELIANA <=20 S Enterococcus avium: REACTION Ampicillin Islt ELIANA <=2 S Gentamicin Synergy Susc Islt SYN-S Linezolid Islt ELIANA 2 S Streptomycin High Pot Susc Islt SYN-S S Vancomycin Islt ELIANA <=0.5 S Normal [facility] Comment on above: Performed By: #### M 100.3000, M1.1999 #### [facility] [address] [place], [address] Gram Stainon 05-15-2025 GS SACRUM, PURULENT MARCELINO INAGE FOR 1 DAY. Gram Stain 4+ Gram positive cocci 4+ Gram negative rods 3+ White Blood Cells Normal [facility] Comment on above: Performed By: #### M 100.3000, M1.1999 #### [facility] [address] [place], [address] CBC W/Diff, Automatedon 04-20 Absolute Lymph 1.09 X10 3/uL Normal 0.83-4.51 [facility] Comment on above: Order Comment: 104.1 Performed By: #### L 501.5200, L503.0106, L501.9520, L500.4050, L100.0100, L501.9985 #### [facility] [address] [place], [address] Absolute Neut 10.7 X10 3/uL High 2.0-7.7 [facility] Comment on above: Order Comment: 104.1 Performed By: #### L 501.5200, L503.0106, L501.9520, L500.4050, L100.0100, L501.9985 #### [facility] [address] [place], [address] Basophils/100 WBC (Bld) 0.5 % Normal 0-1 [facility] Comment on above: Order Comment: 104.1 Performed By: #### L 501.5200, L503.0106, L501.9520, L500.4050, L100.0100, L501.9985 #### [facility] [address] [place], [address] Eosinophils/100 WBC (Bld) 1.7 % Normal 0-5 [facility] Comment on above: Order Comment: 104.1 Performed By: #### L 501.5200, L503.0106, L501.9520, L500.4050, L100.0100, L501.9985 #### [facility] [address] [place], [address] Erythrocyte distribution width (RBC) [Ratio] 15.5 % High 11.6-14.6 [facility] Comment on above: Order Comment: 104.1 Performed By: #### L 501.5200, L503.0106, L501.9520, L500.4050, L100.0100, L501.9985 #### [facility] [address] [place], [address] Hematocrit (Bld) [Volume fraction] 28.8 % Low 40-54 [facility] Comment on above: Order Comment: 104.1 Performed By: #### L 501.5200, L503.0106, L501.9520, L500.4050, L100.0100, L501.9985 #### [facility] [address] [place], [address] Hemoglobin (Bld) [Mass/Vol] 9.2 g/dL Low 13.0-16.5 [facility] Comment on above: Order Comment: 104.1 Performed By: #### L 501.5200, L503.0106, L501.9520, L500.4050, L100.0100, L501.9985 #### [facility] [address] [place], [address] IG% 0.600 Normal 0.0-0.9 [facility] Comment on above: Order Comment: 104.1 Result Comment: IG% - Immature Granulocytes (promyelocytes, myelocytes and metamyelocytes) > 1% indicates that a LEFT SHIFT is Present. Performed By: #### L 501.5200, L503.0106, L501.9520, L500.4050, L100.0100, L501.9985 #### [facility] [address] [place], [address] Lymphocytes/100 WBC (Bld) 8.3 % Low 19-41 [facility] Comment on above: Order Comment: 104.1 Performed By: #### L 501.5200, L503.0106, L501.9520, L500.4050, L100.0100, L501.9985 #### [facility] [address] [place], [address] MCH (RBC) [Entitic mass] 27.8 pg Normal 27.0-32.0 [facility] Comment on above: Order Comment: 104.1 Performed By: #### L 501.5200, L503.0106, L501.9520, L500.4050, L100.0100, L501.9985 #### [facility] [address] [place], [address] MCHC (RBC) [Mass/Vol] 31.9 g/dL Low 32-36 [facility] Comment on above: Order Comment: 104.1 Performed By: #### L 501.5200, L503.0106, L501.9520, L500.4050, L100.0100, L501.9985 #### [facility] [address] [place], [address] MCV (RBC) [Entitic vol] 87.0 fL Normal 80-94 [facility] Comment on above: Order Comment: 104.1 Performed By: #### L 501.5200, L503.0106, L501.9520, L500.4050, L100.0100, L501.9985 #### [facility] [address] [place], [address] Monocytes/100 WBC (Bld) 7.7 % Normal 0-10 [facility] Comment on above: Order Comment: 104.1 Performed By: #### L 501.5200, L503.0106, L501.9520, L500.4050, L100.0100, L501.9985 #### [facility] [address] [place], [address] Neutrophils/100 WBC (Bld) 81.2 % High 47-70 [facility] Comment on above: Order Comment: 104.1 Performed By: #### L 501.5200, L503.0106, L501.9520, L500.4050, L100.0100, L501.9985 #### [facility] [address] [place], [address] Nucleated RBC (Bld) [#/Vol] 0 10*3/uL Normal 0-5 [facility] Comment on above: Order Comment: 104.1 Performed By: #### L 501.5200, L503.0106, L501.9520, L500.4050, L100.0100, L501.9985 #### [facility] [address] [place], [address] Platelet mean volume (Bld) [Entitic vol] 10.8 fL Normal 6.2-12.0 [facility] Comment on above: Order Comment: 104.1 Performed By: #### L 501.5200, L503.0106, L501.9520, L500.4050, L100.0100, L501.9985 #### [facility] [address] [place], [address] Platelets (Bld) [#/Vol] 268 10*3/uL Normal 150-450 [facility] Comment on above: Order Comment: 104.1 Performed By: #### L 501.5200, L503.0106, L501.9520, L500.4050, L100.0100, L501.9985 #### [facility] [address] [place], [address] RBC (Bld) [#/Vol] 3.31 10*6/uL Low 4.6-6.2 [facility] Comment on above: Order Comment: 104.1 Performed By: #### L 501.5200, L503.0106, L501.9520, L500.4050, L100.0100, L501.9985 #### [facility] [address] [place], [address] RDW SD 49.3 fl High 35.1-43.9 [facility] Comment on above: Order Comment: 104.1 Performed By: #### L 501.5200, L503.0106, L501.9520, L500.4050, L100.0100, L501.9985 #### [facility] [address] [place], [address] WBC (Bld) [#/Vol] 13.2 10*3/uL High 4.4-11.0 [facility] Comment on above: Order Comment: 104.1 Performed By: #### L 501.5200, L503.0106, L501.9520, L500.4050, L100.0100, L501.9985 #### [facility] [address] [place], [address] Comprehensive Metabolic Prof ilon 05-08-2025 Albumin [Mass/Vol] 3.2 g/dL Low 3.4-4.8 [facility] Comment on above: Order Comment: 104.1 Performed By: #### L 500.2500, L100.0100, L501.6710 #### [facility] [address] [place], [address] Albumin/Globulin [Mass ratio] 0.8 {ratio} Low 0.9-2.4 [facility] Comment on above: Order Comment: 104.1 Performed By: #### L 500.2500, L100.0100, L501.6710 #### [facility] [address] [place], [address] ALK PHOS 95 U/L Normal 40-129 [facility] Comment on above: Order Comment: 104.1 Performed By: #### L 500.2500, L100.0100, L501.6710 #### [facility] [address] [place], [address] ALT [Catalytic activity/Vol] 13 U/L Normal <=46 [facility] Comment on above: Order Comment: 104.1 Performed By: #### L 500.2500, L100.0100, L501.6710 #### [facility] [address] [place], [address] AST [Catalytic activity/Vol] 17 U/L Normal <=37 [facility] Comment on above: Order Comment: 104.1 Performed By: #### L 500.2500, L100.0100, L501.6710 #### [facility] [address] [place], [address] Bilirubin [Mass/Vol] 0.35 mg/dL Normal 0.00-1.30 [facility] Comment on above: Order Comment: 104.1 Performed By: #### L 500.2500, L100.0100, L501.6710 #### [facility] [address] [place], [address] BUN/CRE 26.4 RATIO High 10-20 [facility] Comment on above: Order Comment: 104.1 Performed By: #### L 500.2500, L100.0100, L501.6710 #### [facility] [address] [place], [address] Calcium [Mass/Vol] 8.9 mg/dL Normal 7.6-11.0 [facility] Comment on above: Order Comment: 104.1 Performed By: #### L 500.2500, L100.0100, L501.6710 #### [facility] [address] [place], [address] Chloride [Moles/Vol] 97 mmol/L Low 98-108 [facility] Comment on above: Order Comment: 104.1 Performed By: #### L 500.2500, L100.0100, L501.6710 #### [facility] [address] [place], [address] CO2 [Moles/Vol] 25.1 mmol/L Normal 21.0-32.0 [facility] Comment on above: Order Comment: 104.1 Performed By: #### L 500.2500, L100.0100, L501.6710 #### [facility] [address] [place], [address] Creatinine [Mass/Vol] 1.09 mg/dL Normal 0.70-1.20 [facility] Comment on above: Order Comment: 104.1 Performed By: #### L 500.2500, L100.0100, L501.6710 #### [facility] [address] [place], [address] GAP 14 Normal 5-15 [facility] Comment on above: Order Comment: 104.1 Performed By: #### L 500.2500, L100.0100, L501.6710 #### [facility] [address] [place], [address] GFR/1.73 sq M.predicted among non-blacks MDRD (S/P/Bld) [Vol rate/Area] 72 mL/min/{1.73_m2} Normal >60 [facility] Comment on above: Order Comment: 104.1 Result Comment: mL/m in/1.73m2 CKD-EPI Creatinine Equation (2020) Performed By: #### L 500.2500, L100.0100, L501.6710 #### [facility] [address] [place], [address] Globulin (S) [Mass/Vol] 3.8 g/dL Normal 2.2-4.2 [facility] Comment on above: Order Comment: 104.1 Performed By: #### L 500.2500, L100.0100, L501.6710 #### [facility] [address] [place], [address] Glucose [Mass/Vol] 121 mg/dL High 70-99 [facility] Comment on above: Order Comment: 104.1 Performed By: #### L 500.2500, L100.0100, L501.6710 #### [facility] [address] [place], [address] Potassium [Moles/Vol] 3.6 mmol/L Normal 3.3-5.1 [facility] Comment on above: Order Comment: 104.1 Performed By: #### L 500.2500, L100.0100, L501.6710 #### [facility] [address] [place], [address] Sodium [Moles/Vol] 136 mmol/L Normal 133-145 [facility] Comment on above: Order Comment: 104.1 Performed By: #### L 500.2500, L100.0100, L501.6710 #### [facility] [address] [place], [address] T PROT 7.0 g/dL Normal 5.9-8.4 [facility] Comment on above: Order Comment: 104.1 Performed By: #### L 500.2500, L100.0100, L501.6710 #### [facility] [address] [place], [address] Urea nitrogen [Mass/Vol] 29 mg/dL High -19 [facility] Comment on above: Order Comment: 104.1 Performed By: #### L 500.2500, L100.0100, L501.6710 #### [facility] [address] [place], [address] Hemoglobin A1con 05-08-2025 HbA1c (Bld) [Mass fraction] 6.6 % High <=5.6 [facility] Comment on above: Order Comment: 104.1 Result Comment: Norm al < 5.7 % Prediabetic 5.7 - 6.4 % Diabetic >or= 6.5 % Please note range changes. Performed By: #### L 501.5200, L503.0106, L501.9520, L500.4050, L100.0100, L501.9985 #### [facility] [address] [place], [address] Magnesiumon 05-08-2025 Magnesium [Mass/Vol] 1.9 mg/dL Normal 1.5-2.2 [facility] Comment on above: Order Comment: 104.1 Performed By: #### L 500.2500, L100.0100, L501.6710 #### [facility] [address] [place], [address] Thyroid Stim Hormone (TSH)on 05-08-2025 TSH 1.670 uIU/mL Normal 0.300-4.200 [facility] Comment on above: Order Comment: 104.1 Performed By: #### L 500.2500, L100.0100, L501.6710 #### [facility] [address] [place], [address] Vitamin B12on 05-08-2025 Cobalamin (Vitamin B12) [Mass/Vol] 431 pg/mL Normal 180-914 [facility] Comment on above: Order Comment: 104.1 Performed By: #### L 500.2500, L100.0100, L501.6710 #### [facility] [address] [place], [address] CBC W/Diff, Automatedon 04-20 Absolute Lymph 0.86 X10 3/uL Normal 0.83-4.51 [facility] Comment on above: Order Comment: 104.1 Performed By: #### L 500.4050, L100.0100 #### [facility] [address] [place], [address] Absolute Neut 12.7 X10 3/uL High 2.0-7.7 [facility] Comment on above: Order Comment: 104.1 Performed By: #### L 500.4050, L100.0100 #### [facility] [address] [place], [address] Basophils/100 WBC (Bld) 0.5 % Normal 0-1 [facility] Comment on above: Order Comment: 104.1 Performed By: #### L 500.4050, L100.0100 #### [facility] [address] [place], [address] Eosinophils/100 WBC (Bld) 0.5 % Normal 0-5 [facility] Comment on above: Order Comment: 104.1 Performed By: #### L 500.4050, L100.0100 #### [facility] [address] [place], [address] Erythrocyte distribution width (RBC) [Ratio] 15.9 % High 11.6-14.6 [facility] Comment on above: Order Comment: 104.1 Performed By: #### L 500.4050, L100.0100 #### [facility] [address] [place], [address] Hematocrit (Bld) [Volume fraction] 29.0 % Low 40-54 [facility] Comment on above: Order Comment: 104.1 Performed By: #### L 500.4050, L100.0100 #### [facility] [address] [place], [address] Hemoglobin (Bld) [Mass/Vol] 9.1 g/dL Low 13.0-16.5 [facility] Comment on above: Order Comment: 104.1 Performed By: #### L 500.4050, L100.0100 #### [facility] [address] [place], [address] IG% 0.800 Normal 0.0-0.9 [facility] Comment on above: Order Comment: 104.1 Result Comment: IG% - Immature Granulocytes (promyelocytes, myelocytes and metamyelocytes) > 1% indicates that a LEFT SHIFT is Present. Performed By: #### L 500.4050, L100.0100 #### [facility] [address] [place], [address] Lymphocytes/100 WBC (Bld) 5.8 % Low 19-41 [facility] Comment on above: Order Comment: 104.1 Performed By: #### L 500.4050, L100.0100 #### [facility] [address] [place], [address] MCH (RBC) [Entitic mass] 27.3 pg Normal 27.0-32.0 [facility] Comment on above: Order Comment: 104.1 Performed By: #### L 500.4050, L100.0100 #### [facility] [address] [place], [address] MCHC (RBC) [Mass/Vol] 31.4 g/dL Low 32-36 [facility] Comment on above: Order Comment: 104.1 Performed By: #### L 500.4050, L100.0100 #### [facility] [address] [place], [address] MCV (RBC) [Entitic vol] 87.1 fL Normal 80-94 [facility] Comment on above: Order Comment: 104.1 Performed By: #### L 500.4050, L100.0100 #### [facility] [address] [place], [address] Monocytes/100 WBC (Bld) 7.2 % Normal 0-10 [facility] Comment on above: Order Comment: 104.1 Performed By: #### L 500.4050, L100.0100 #### [facility] [address] [place], [address] Neutrophils/100 WBC (Bld) 85.2 % High 47-70 [facility] Comment on above: Order Comment: 104.1 Performed By: #### L 500.4050, L100.0100 #### [facility] [address] [place], [address] Nucleated RBC (Bld) [#/Vol] 0 10*3/uL Normal 0-5 [facility] Comment on above: Order Comment: 104.1 Performed By: #### L 500.4050, L100.0100 #### [facility] [address] [place], [address] Platelet mean volume (Bld) [Entitic vol] 11.6 fL Normal 6.2-12.0 [facility] Comment on above: Order Comment: 104.1 Performed By: #### L 500.4050, L100.0100 #### [facility] [address] [place], [address] Platelets (Bld) [#/Vol] 285 10*3/uL Normal 150-450 [facility] Comment on above: Order Comment: 104.1 Performed By: #### L 500.4050, L100.0100 #### [facility] [address] [place], [address] RBC (Bld) [#/Vol] 3.33 10*6/uL Low 4.6-6.2 [facility] Comment on above: Order Comment: 104.1 Performed By: #### L 500.4050, L100.0100 #### [facility] [address] [place], [address] RDW SD 49.9 fl High 35.1-43.9 [facility] Comment on above: Order Comment: 104.1 Performed By: #### L 500.4050, L100.0100 #### [facility] [address] [place], [address] WBC (Bld) [#/Vol] 15.0 10*3/uL High 4.4-11.0 [facility] Comment on above: Order Comment: 104.1 Performed By: #### L 500.4050, L100.0100 #### [facility] [address] [place], [address] Comprehensive Metabolic Prof ilon 05-03-2025 Albumin [Mass/Vol] 3.5 g/dL Normal 3.4-4.8 [facility] Comment on above: Order Comment: 104.1 Performed By: #### L 500.4050, L100.0100 #### [facility] [address] [place], [address] Albumin/Globulin [Mass ratio] 1.0 {ratio} Normal 0.9-2.4 [facility] Comment on above: Order Comment: 104.1 Performed By: #### L 500.4050, L100.0100 #### [facility] [address] [place], [address] ALK PHOS 106 U/L Normal 40-129 [facility] Comment on above: Order Comment: 104.1 Performed By: #### L 500.4050, L100.0100 #### [facility] [address] [place], [address] ALT [Catalytic activity/Vol] 11 U/L Normal <=46 [facility] Comment on above: Order Comment: 104.1 Performed By: #### L 500.4050, L100.0100 #### [facility] [address] [place], [address] AST [Catalytic activity/Vol] 20 U/L Normal <=37 [facility] Comment on above: Order Comment: 104.1 Performed By: #### L 500.4050, L100.0100 #### [facility] [address] [place], [address] Bilirubin [Mass/Vol] 0.52 mg/dL Normal 0.00-1.30 [facility] Comment on above: Order Comment: 104.1 Performed By: #### L 500.4050, L100.0100 #### [facility] [address] [place], [address] BUN/CRE 31.3 RATIO High 10-20 [facility] Comment on above: Order Comment: 104.1 Performed By: #### L 500.4050, L100.0100 #### [facility] [address] [place], [address] Calcium [Mass/Vol] 10.2 mg/dL Normal 7.6-11.0 [facility] Comment on above: Order Comment: 104.1 Performed By: #### L 500.4050, L100.0100 #### [facility] [address] [place], [address] Chloride [Moles/Vol] 93 mmol/L Low 98-108 [facility] Comment on above: Order Comment: 104.1 Performed By: #### L 500.4050, L100.0100 #### [facility] [address] [place], [address] CO2 [Moles/Vol] 23.6 mmol/L Normal 21.0-32.0 [facility] Comment on above: Order Comment: 104.1 Performed By: #### L 500.4050, L100.0100 #### [facility] [address] [place], [address] Creatinine [Mass/Vol] 1.13 mg/dL Normal 0.70-1.20 [facility] Comment on above: Order Comment: 104.1 Performed By: #### L 500.4050, L100.0100 #### [facility] [address] [place], [address] GAP 16 High 5-15 [facility] Comment on above: Order Comment: 104.1 Performed By: #### L 500.4050, L100.0100 #### [facility] [address] [place], [address] GFR/1.73 sq M.predicted among non-blacks MDRD (S/P/Bld) [Vol rate/Area] 69 mL/min/{1.73_m2} Normal >60 [facility] Comment on above: Order Comment: 104.1 Result Comment: mL/m in/1.73m2 CKD-EPI Creatinine Equation (2020) Performed By: #### L 500.4050, L100.0100 #### [facility] [address] [place], [address] Globulin (S) [Mass/Vol] 3.7 g/dL Normal 2.2-4.2 [facility] Comment on above: Order Comment: 104.1 Performed By: #### L 500.4050, L100.0100 #### [facility] [address] [place], [address] Glucose [Mass/Vol] 175 mg/dL High 70-99 [facility] Comment on above: Order Comment: 104.1 Performed By: #### L 500.4050, L100.0100 #### [facility] [address] [place], [address] Potassium [Moles/Vol] 4.0 mmol/L Normal 3.3-5.1 [facility] Comment on above: Order Comment: 104.1 Performed By: #### L 500.4050, L100.0100 #### [facility] [address] [place], [address] Sodium [Moles/Vol] 133 mmol/L Normal 133-145 [facility] Comment on above: Order Comment: 104.1 Performed By: #### L 500.4050, L100.0100 #### [facility] [address] [place], [address] T PROT 7.3 g/dL Normal 5.9-8.4 [facility] Comment on above: Order Comment: 104.1 Performed By: #### L 500.4050, L100.0100 #### [facility] [address] [place], [address] Urea nitrogen [Mass/Vol] 35 mg/dL High 4-19 [facility] Comment on above: Order Comment: 104.1 Performed By: #### L 500.4050, L100.0100 #### [facility] [address] [place], [address] ARTERIAL BLOOD GASESon 04-23 Base deficit (BldA) [Moles/Vol] -1 mmol/L Normal -2-0 [facility] Comment on above: Order Comment: Speci men Type: ARTERIAL BLOOD SPECIMENOrdering Facility: [facility] Address: [address] [place] [address] Performed By: #### A LLBG ####[facility] LABORATORYCLIA [id number] [address] [place] Body temperature 98.6 [degF] Normal [facility] Comment on above: Order Comment: Speci men Type: ARTERIAL BLOOD SPECIMENOrdering Facility: [facility] Address: [address] [place] [address] Performed By: #### A LLBG ####[facility] LABORATORYCLIA [id number] [place] [address] [place] Calcium.ionized (BldV) [Mass/Vol] 1.20 mmol/L Normal 1.08-1.30 [facility] Comment on above: Order Comment: Speci men Type: ARTERIAL BLOOD SPECIMENOrdering Facility: [facility] Address: [address] [place] [address] Performed By: #### A LLBG ####[facility] LABORATORYCLIA [id number] [place] [address] [place] Calcium.ionized adjusted to pH 7.4 (BldA) [Moles/Vol] 1.19 mmol/L Normal 1.08-1.30 [facility] Comment on above: Order Comment: Speci men Type: ARTERIAL BLOOD SPECIMENOrdering Facility: [facility] Address: [address] [place] [address] Performed By: #### A LLBG ####[facility] LABORATORYCLIA [id number] [address] [place] Carboxyhemoglobin (BldA) [Mass fraction] 1.2 % Normal 0.0-2.0 [facility] Comment on above: Order Comment: Speci men Type: ARTERIAL BLOOD SPECIMENOrdering Facility: [facility] Address: [address] [place] [address] Result Comment: Carb oxyhemoglobin Reference Range for Smokers: 2.0-8.0% Performed By: #### A LLBG ####[facility] LABORATORYCLIA [id number] [place] [address] [place] Chloride [Moles/Vol] 106 mmol/L High 97-105 [facility] Comment on above: Order Comment: Speci men Type: ARTERIAL BLOOD SPECIMENOrdering Facility: [facility] Address: [address] [place] [address] Performed By: #### A LLBG ####[facility] LABORATORYCLIA [id number] [place] [address] [place] CO2 (Bld) [Partial pressure] 38 mm Hg Normal 36-46 [facility] Comment on above: Order Comment: Speci men Type: ARTERIAL BLOOD SPECIMENOrdering Facility: [facility] Address: [address] [place] [address] Performed By: #### A LLBG ####[facility] LABORATORYCLIA [id number] [place] [address] [place] Glucose [Mass/Vol] 178 mg/dL High 60-105 [facility] Comment on above: Order Comment: Speci men Type: ARTERIAL BLOOD SPECIMENOrdering Facility: [facility] Address: [address] [place] [address] Performed By: #### A LLBG ####[facility] LABORATORYCLIA [id number] [address] [place] HCO3 (Bld) [Moles/Vol] 23 mmol/L Normal 22-26 [facility] Comment on above: Order Comment: Speci men Type: ARTERIAL BLOOD SPECIMENOrdering Facility: [facility] Address: [address] [place] [address] Performed By: #### A LLBG ####[facility] LABORATORYCLIA [id number] [address] [place] Hematocrit (Bld) [Volume fraction] 27.4 % Low 39.0-51.0 [facility] Comment on above: Order Comment: Speci men Type: ARTERIAL BLOOD SPECIMENOrdering Facility: [facility] Address: [address] [place] [address] Performed By: #### A LLBG ####[facility] LABORATORYCLIA [id number] [address] [place] Hemoglobin (Bld) [Mass/Vol] 8.8 g/dL Low 13.0-17.0 [facility] Comment on above: Order Comment: Speci men Type: ARTERIAL BLOOD SPECIMENOrdering Facility: [facility] Address: [address] [place] [address] Performed By: #### A LLBG ####[facility] LABORATORYCLIA [id number] [address] [place] Lactate [Moles/Vol] 1.9 mmol/L Normal 0.5-2.2 [facility] Comment on above: Order Comment: Speci men Type: ARTERIAL BLOOD SPECIMENOrdering Facility: [facility] Address: [address] [place] [address] Performed By: #### A LLBG ####[facility] LABORATORYCLIA [id number] [address] [place] Methemoglobin (Bld) [Mass fraction] 1.1 % Normal 0.0-1.5 [facility] Comment on above: Order Comment: Speci men Type: ARTERIAL BLOOD SPECIMENOrdering Facility: [facility] Address: [address] [place] [address] Performed By: #### A LLBG ####[facility] LABORATORYCLIA [id number] [address] [place] O2 THERAPY NR=Non-Rebreather Mask Normal [facility] Comment on above: Order Comment: Speci men Type: ARTERIAL BLOOD SPECIMENOrdering Facility: [facility] Address: [address] [place] [address] Performed By: #### A LLBG ####[facility] LABORATORYCLIA [id number] [address] [place] Oxygen (Bld) [Partial pressure] 56 mm Hg Low 85-95 [facility] Comment on above: Order Comment: Speci men Type: ARTERIAL BLOOD SPECIMENOrdering Facility: [facility] Address: [address] [place] [address] Performed By: #### A LLBG ####[facility] LABORATORYCLIA [id number] [address] [place] Oxyhemoglobin (BldA) [Mass fraction] 84 % Low 95-98 [facility] Comment on above: Order Comment: Speci men Type: ARTERIAL BLOOD SPECIMENOrdering Facility: [facility] Address: [address] [place] [address] Performed By: #### A LLBG ####[facility] LABORATORYCLIA [id number] [place] [address] [place] pH (Bld) 7.40 [pH] Normal 7.35-7.45 [facility] Comment on above: Order Comment: Speci men Type: ARTERIAL BLOOD SPECIMENOrdering Facility: [facility] Address: [address] [place] [address] Performed By: #### A LLBG ####[facility] LABORATORYCLIA [id number] [place] [address] [place] Potassium [Moles/Vol] 3.4 mmol/L Low 3.5-5.0 [facility] Comment on above: Order Comment: Speci men Type: ARTERIAL BLOOD SPECIMENOrdering Facility: [facility] Address: [address] [place] [address] Performed By: #### A LLBG ####[facility] LABORATORYCLIA [id number] [address] Sodium [Moles/Vol] 142 mmol/L Normal 136-144 [facility] Comment on above: Order Comment: Speci men Type: ARTERIAL BLOOD SPECIMENOrdering Facility: [facility] Address: [address] [place] [address] Performed By: #### A LLBG ####[facility] LABORATORYCLIA [id number] [address] CBC Pnl Bld Autoon Hemoglobin (Bld) [Mass/Vol] 7.9 g/dL Low 13.0-17.0 [facility] Comment on above: Order Comment: Speci men Type: BLOOD SPECIMENOrdering Facility: [facility] Address: [address] [place] [address] Performed By: #### 5 8410-2 ####[facility] LABORATORYCLIA [id number] [address] Order Comment: Speci men Type: VENOUS BLOOD SPECIMENOrdering Facility: [facility] Address: [address] [place] [address] Performed By: #### 2 4344-4 ####[facility] LABORATORYCLIA [id number] [address] CBC panel Auto (Bld)on 04-22 Erythrocyte distribution width (RBC) [Ratio] 14.9 % Normal 11.5-15.0 [facility] Comment on above: Order Comment: Speci men Type: BLOOD SPECIMENOrdering Facility: [facility] Address: [address] [place] [address] Performed By: #### 5 8410-2 ####[facility] LABORATORYCLIA [id number] [address] [place] Hematocrit (Bld) [Volume fraction] 25.6 % Low 39.0-51.0 [facility] Comment on above: Order Comment: Speci men Type: BLOOD SPECIMENOrdering Facility: [facility] Address: [address] [place] [address] Performed By: #### 5 8410-2 ####[facility] LABORATORYCLIA [id number] [address] MCH (RBC) [Entitic mass] 27.2 pg Normal 26.0-34.0 [facility] Comment on above: Order Comment: Speci men Type: BLOOD SPECIMENOrdering Facility: [facility] Address: [address] [place] [address] Performed By: #### 5 8410-2 ####[facility] LABORATORYCLIA [id number] [address] MCHC (RBC) [Mass/Vol] 30.9 g/dL Normal 30.5-36.0 [facility] Comment on above: Order Comment: Speci men Type: BLOOD SPECIMENOrdering Facility: [facility] Address: [address] [place] [address] Performed By: #### 5 8410-2 ####[facility] LABORATORYCLIA [id number] [address] MCV (RBC) [Entitic vol] 88.3 fL Normal 80.0-100.0 [facility] Comment on above: Order Comment: Speci men Type: BLOOD SPECIMENOrdering Facility: [facility] Address: [address] [place] [address] Performed By: #### 5 8410-2 ####[facility] LABORATORYCLIA [id number] [address] Nucleated RBC (Bld) [#/Vol] 10*3/uL Normal <0.01 [facility] Comment on above: Order Comment: Speci men Type: BLOOD SPECIMENOrdering Facility: [facility] Address: [address] [place] [address] Performed By: #### 5 8410-2 ####[facility] LABORATORYCLIA [id number] [address] STATES [facility] Platelet mean volume (Bld) [Entitic vol] 10.4 fL Normal 9.0-12.7 [facility] Comment on above: Order Comment: Speci men Type: BLOOD SPECIMENOrdering Facility: [facility] Address: [address] [place] [address] Performed By: #### 5 8410-2 ####[facility] LABORATORYCLIA [id number] [address] [place] Platelets (Bld) [#/Vol] 405 10*3/uL High 150-400 [facility] Comment on above: Order Comment: Speci men Type: BLOOD SPECIMENOrdering Facility: [facility] Address: [address] [place] [address] Performed By: #### 5 8410-2 ####[facility] LABORATORYCLIA [id number] [address] RBC (Bld) [#/Vol] 2.90 10*6/uL Low 4.20-6.00 [facility] Comment on above: Order Comment: Speci men Type: BLOOD SPECIMENOrdering Facility: [facility] Address: [address] [place] [address] Performed By: #### 5 8410-2 ####[facility] LABORATORYCLIA [id number] [address] [place] WBC (Bld) [#/Vol] 15.78 10*3/uL High 3.70-11.00 [facility] Comment on above: Order Comment: Speci men Type: BLOOD SPECIMENOrdering Facility: [facility] Address: [address] [place] [address] Performed By: #### 5 8410-2 ####[facility] LABORATORYCLIA [id number] [address] [place] Comprehensive metabolic 2000 panelon 04-22-2025 Albumin [Mass/Vol] 2.9 g/dL Low 3.9-4.9 [facility] Comment on above: Order Comment: Speci men Type: BLOOD SPECIMENOrdering Facility: [facility] Address: [address] [place] [address] Performed By: #### 2 4323-8, , 2776-09 ####[facility] LABORATORYCLIA [id number] [place] [address] [place] ALP [Catalytic activity/Vol] 174 U/L High 38-113 [facility] Comment on above: Order Comment: Speci men Type: BLOOD SPECIMENOrdering Facility: [facility] Address: [address] [place] [address] Performed By: #### 2 4323-8, , 2776-09 ####[facility] LABORATORYCLIA [id number] [place] [address] [place] ALT With P-5'-P [Catalytic activity/Vol] 31 U/L Normal 10-54 [facility] Comment on above: Order Comment: Speci men Type: BLOOD SPECIMENOrdering Facility: [facility] Address: [address] [place] [address] Performed By: #### 2 4323-8, , 2776-09 ####[facility] LABORATORYCLIA [id number] [address] [place] Anion gap [Moles/Vol] 11 mmol/L Normal 8-15 [facility] Comment on above: Order Comment: Speci men Type: BLOOD SPECIMENOrdering Facility: [facility] Address: [address] [place] [address] Performed By: #### 2 4323-8, , 2776-09 ####[facility] LABORATORYCLIA [id number] [place] [address] [place] AST With P-5'-P [Catalytic activity/Vol] 21 U/L Normal 14-40 [facility] Comment on above: Order Comment: Speci men Type: BLOOD SPECIMENOrdering Facility: [facility] Address: [address] [place] [address] Performed By: #### 2 4323-8, , 2776-09 ####[facility] LABORATORYCLIA [id number] [place] [address] [place] Bilirubin [Mass/Vol] 0.3 mg/dL Normal 0.2-1.3 [facility] Comment on above: Order Comment: Speci men Type: BLOOD SPECIMENOrdering Facility: [facility] Address: [facility] [place] [id number] Performed By: #### 2 432-8, , 2776-09 ####[facility] LABORATORYCLIA [id number] [place] [address] [place] Calcium [Mass/Vol] 8.8 mg/dL Normal 8.5-10.2 [facility] Comment on above: Order Comment: Speci men Type: BLOOD SPECIMENOrdering Facility: [facility] Address: [address] [place] [address] Performed By: #### 2 432-8, , 2776-09 ####[facility] LABORATORYCLIA [id number] [place] [address] [place] CO2 [Moles/Vol] 26 mmol/L Normal 22-30 [facility] Comment on above: Order Comment: Speci men Type: BLOOD SPECIMENOrdering Facility: [facility] Address: [facility] [place] [address] Performed By: #### 2 4323-8, , 2776-09 ####[facility] LABORATORYCLIA [id number] [place] [address] [place] Creatinine [Mass/Vol] 1.07 mg/dL Normal 0.73-1.22 [facility] Comment on above: Order Comment: Speci men Type: BLOOD SPECIMENOrdering Facility: [facility] Address: [facility] [place] [address] Performed By: #### 2 4323-8, , 2776-09 ####[facility]ORATORYCLIA [id number] [place] [address] [place] eGFRcr SerPlBld CKD-EPI 2020 73 mL/min/1.73m??? Normal >=60 [facility] Comment on above: Order Comment: Jose Cruz johnson Type: BLOOD SPECIMENOrdering Facility: [facility] Address: [address] [place] [address] Result Comment: Mary Kay mated Glomerular Filtration Rate (eGFR) is calculated using the 2020 CKD-EPI creatinine equation. This equation utilizes serum creatinine, sex, and age as parameters. The creatinine assay has traceable calibration to isotope dilution-mass spectrometry. Refer to KDIGO guidelines for clinical interpretation. In patients with unstable renal function, e.g. those with acute kidney injury, the eGFR may not accurately reflect actual GFR. Performed By: #### 2 4323-8, , 2776-09 ####[facility] LABORATORYCLIA [id number] [place] [address] [place] Protein [Mass/Vol] 6.2 g/dL Low 6.3-8.0 [facility] Comment on above: Order Comment: Jose Cruz johnson Type: BLOOD SPECIMENOrdering Facility: [facility] Address: [address] [place] [address] Performed By: #### 2 4323-8, , 2776-09 ####[facility] LABORATORYCLIA [id number] [place] [address] [place] Sodium [Moles/Vol] 142 mmol/L Normal 136-144 [facility] Comment on above: Order Comment: Jose Cruz johnson Type: BLOOD SPECIMENOrdering Facility: [facility] Address: [address] [place] [address] Performed By: #### 2 4323-8, , 2776-09 ####[facility] LABORATORYCLIA [id number] [place] [address] [place] Urea nitrogen [Mass/Vol] 31 mg/dL High 9-24 [facility] Comment on above: Order Comment: Jose Cruz johnson Type: BLOOD SPECIMENOrdering Facility: [facility] Address: [address] [place] [address] Performed By: #### 2 4323-8, 99202-9, 2777-1 ####[facility] LABORATORYCLIA [id number] [address] Gas + CO Pnl BldVon 04-22-20 25 Chloride [Moles/Vol] 105 mmol/L Normal 98-107 [facility] Comment on above: Order Comment: Speci men Type: VENOUS BLOOD SPECIMENOrdering Facility: [facility] Address: [address] [place] [address] Performed By: #### 2 4344-4 ####[facility] LABORATORYCLIA [id number] [address] Order Comment: Dahianai men Type: BLOOD SPECIMENOrdering Facility: [facility] Address: [address] [place] [address] Performed By: #### 2 4323-8, 99847-3, 2777-1 ####[facility] LABORATORYCLIA [id number] [address] Glucose [Mass/Vol] 183 mg/dL High 74-99 [facility] Comment on above: Order Comment: Dahianai men Type: VENOUS BLOOD SPECIMENOrdering Facility: [facility] Address: [address] [place] [address] Performed By: #### 2 4344-4 ####[facility] LABORATORYCLIA [id number] [address] Order Comment: Speci men Type: BLOOD SPECIMENOrdering Facility: [facility] Address: [address] [place] [address] Result Comment: The [place] Diabetes Association (ADA) provides guidance for cutoff values for fasting glucose and random glucose. The ADA defines fasting as no caloric intake for at least 8 hours. Fasting plasma glucose results between 100 to 125 mg/dL indicate increased risk for diabetes (prediabetes).Fasting plasma glucose results greater than or equal to 126 mg/dL meet the criteria for diagnosis of diabetes. In the absence of unequivocal hyperglycemia, results should be confirmed by repeat testing. In a patient with classic symptoms of hyperglycemia or hyperglycemic crisis, random plasma glucose results greater than or equal to 200 mg/dL meet the criteria for diagnosis of diabetes.Reference: Standards of Medical Care in Diabetes 2016, [place] Diabetes Association. Diabetes Care. 2016.39(Suppl 1). Performed By: #### 2 4323-8, 12643-5, 277-1 ####[facility] LABORATORYCLIA [id number] [place] [address] [place] Potassium [Moles/Vol] 3.9 mmol/L Normal 3.7-5.1 [facility] Comment on above: Order Comment: Speci men Type: VENOUS BLOOD SPECIMENOrdering Facility: [facility] Address: [address] [place] [address] Performed By: #### 2 4344-4 ####[facility] LABORATORYCLIA [id number] [address] [place] Order Comment: Speci men Type: BLOOD SPECIMENOrdering Facility: [facility] Address: [address] [place] [address] Performed By: #### 2 4323-8, , 2776-09 ####[facility] LABORATORYCLIA [id number] [address] [place] Gas and Carbon monoxide pane l (BldV)on 04-22-2025 Base excess Calc (BldV) [Moles/Vol] 3 mmol/L High 0-2 [facility] Comment on above: Order Comment: Speci men Type: VENOUS BLOOD SPECIMENOrdering Facility: [facility] Address: [address] [place] [address] Performed By: #### 2 4344-4 ####[facility] LABORATORYCLIA [id number] [address] [place] Body temperature 98.6 [degF] Normal [facility] Comment on above: Order Comment: Speci men Type: VENOUS BLOOD SPECIMENOrdering Facility: [facility] Address: [facility] [place] [address] Performed By: #### 2 4344-4 ####[facility] LABORATORYCLIA [id number] [address] Calcium.ionized (BldV) [Mass/Vol] 1.18 mmol/L Normal 1.08-1.30 [facility] Comment on above: Order Comment: Speci men Type: VENOUS BLOOD SPECIMENOrdering Facility: [facility] Address: [address] [place] [address] Performed By: #### 2 4344-4 ####[facility] LABORATORYCLIA [id number] [address] STATES OF [facility] Calcium.ionized adjusted to pH 7.4 (BldA) [Moles/Vol] 1.17 mmol/L Normal 1.08-1.30 [facility] Comment on above: Order Comment: Speci men Type: VENOUS BLOOD SPECIMENOrdering Facility: [facility] Address: [address] [place] [address] Performed By: #### 2 4344-4 ####[facility] LABORATORYCLIA [id number] [address] STATES [facility] Carboxyhemoglobin (BldV) [Mass fraction] 1.9 % Normal 0.0-2.0 [facility] Comment on above: Order Comment: Speci men Type: VENOUS BLOOD SPECIMENOrdering Facility: [facility] Address: [address] [place] [address] Result Comment: Carb oxyhemoglobin Reference Range for Smokers: 2.0-8.0% Performed By: #### 2 4344-4 ####[facility] LABORATORYCLIA [id number] [place] [address] [place] CO2 (BldV) [Partial pressure] 47 mm[Hg] Normal 42-55 [facility] Comment on above: Order Comment: Speci men Type: VENOUS BLOOD SPECIMENOrdering Facility: [facility] Address: [address] [place] [address] Performed By: #### 2 4344-4 ####[facility] LABORATORYCLIA [id number] [address] [place] FIO2 40 % Normal [facility] Comment on above: Order Comment: Speci men Type: VENOUS BLOOD SPECIMENOrdering Facility: [facility] Address: [address] [place] [address] Performed By: #### 2 4344-4 ####[facility]ORATORYCLIA [id number] [address] [place] HCO3 (Bld) [Moles/Vol] 28 mmol/L Normal 24-28 [facility] Comment on above: Order Comment: Speci men Type: VENOUS BLOOD SPECIMENOrdering Facility: [facility] Address: [address] [place] [address] Performed By: #### 2 4344-4 ####[facility] LABORATORYCLIA [id number] [address] Hematocrit (Bld) [Volume fraction] 24.7 % Low 39.0-51.0 [facility] Comment on above: Order Comment: Speci men Type: VENOUS BLOOD SPECIMENOrdering Facility: [facility] Address: [address] [place] [address] Performed By: #### 2 4344-4 ####[facility]ATORYCLIA [id number] [address] [place] IPAP (CM H2O) 12 Normal [facility] Comment on above: Order Comment: Speci men Type: VENOUS BLOOD SPECIMENOrdering Facility: [facility] Address: [address] [place] [address] Performed By: #### 2 4344-4 ####[facility]ATORYCLIA [id number] [address] [place] Lactate [Moles/Vol] 0.9 mmol/L Normal 0.5-2.2 [facility] Comment on above: Order Comment: Speci men Type: VENOUS BLOOD SPECIMENOrdering Facility: [facility] Address: [address] [place] [address] Performed By: #### 2 4344-4 ####[facility]ORATORYCLIA [id number] [address] [place] Methemoglobin (Bld) [Mass fraction] 1.0 % Normal 0.0-1.5 [facility] Comment on above: Order Comment: Speci men Type: VENOUS BLOOD SPECIMENOrdering Facility: [facility] Address: [address] [place] [address] Performed By: #### 2 4344-4 ####[facility]ORATORYCLIA [id number] [address] [place] O2 THERAPY NIV=Noninvasive Ventilation Normal [facility] Comment on above: Order Comment: Speci men Type: VENOUS BLOOD SPECIMENOrdering Facility: [facility] Address: [address] [place] [address] Performed By: #### 2 4344-4 ####[facility]ORATORYCLIA [id number] [address] [place] Oxygen (BldV) [Partial pressure] 60 mm[Hg] High 35-45 [facility] Comment on above: Order Comment: Speci men Type: VENOUS BLOOD SPECIMENOrdering Facility: [facility] Address: [address] [place] [address] Performed By: #### 2 4344-4 ####[facility]ORATORYCLIA [id number] [address] [place] Oxygen saturation in Venous blood 88 % High 60-85 [facility] Comment on above: Order Comment: Speci men Type: VENOUS BLOOD SPECIMENOrdering Facility: [facility] Address: [address] [place] [address] Performed By: #### 2 4344-4 ####[facility]ORATORYCLIA [id number] [address] [place] Oxyhemoglobin (BldV) [Mass fraction] 85 % Normal 60-85 [facility] Comment on above: Order Comment: Speci men Type: VENOUS BLOOD SPECIMENOrdering Facility: [facility] Address: [address] [place] [address] Performed By: #### 2 4344-4 ####[facility]ORATORYCLIA [id number] [place] [address] [place] PEEP/CPAP 5 cmH2O Normal [facility] Comment on above: Order Comment: Speci men Type: VENOUS BLOOD SPECIMENOrdering Facility: [facility] Address: [address] [place] [address] Performed By: #### 2 4344-4 ####[facility] LABORATORYCLIA [id number] [address] [place] pH (BldV) 7.39 [pH] Normal 7.32-7.42 [facility] Comment on above: Order Comment: Speci men Type: VENOUS BLOOD SPECIMENOrdering Facility: [facility] Address: [address] [place] [address] Performed By: #### 2 4344-4 ####[facility] LABORATORYCLIA [id number] [address] SET VENTILATOR RESPIRATORY RATE (BPM) 14 BPM Normal [facility] Comment on above: Order Comment: Speci men Type: VENOUS BLOOD SPECIMENOrdering Facility: [facility] Address: [address] [place] [address] Performed By: #### 2 4344-4 ####[facility] LABORATORYCLIA [id number] [address] [place] Sodium [Moles/Vol] 143 mmol/L Normal 136-144 [facility] Comment on above: Order Comment: Speci men Type: VENOUS BLOOD SPECIMENOrdering Facility: [facility] Address: [address] [place] [address] Performed By: #### 2 4344-4 ####[facility] LABORATORYCLIA [id number] [address] [place] Hgb Bld-mCncon 04-22-2025 Hemoglobin (Bld) [Mass/Vol] 7.7 g/dL Low 13.0-17.0 [facility] Comment on above: Order Comment: Speci men Type: BLOOD SPECIMENOrdering Facility: [facility] Address: [address] [place] [address] Performed By: #### 7 18-7 ####[facility] LABORATORYCLIA [id number] [place] [address] [place] Hemoglobin (Bld) [Mass/Vol] 8.1 g/dL Low 13.0-17.0 [facility] Comment on above: Order Comment: Speci men Type: BLOOD SPECIMENOrdering Facility: [facility] Address: [address] [place] [address] Performed By: #### 7 18-7 ####[facility] LABORATORYCLIA [id number] [place] [id number] [place] Hemoglobin (Bld) [Mass/Vol] 7.5 g/dL Low 13.0-17.0 [facility] Comment on above: Order Comment: Speci men Type: BLOOD SPECIMENOrdering Facility: [facility] Address: [address] [place] [address] Performed By: #### 7 18-7 ####[facility] LABORATORYCLIA [id number] [address] Magnesium SerPl-mCncon 04-22 Magnesium [Mass/Vol] 2.2 mg/dL Normal 1.7-2.3 [facility] Comment on above: Order Comment: Speci men Type: BLOOD SPECIMENOrdering Facility: [facility] Address: [address] [place] [address] Performed By: #### 2 4323-8, 17538-7, 27771 ####[facility] LABORATORYCLIA [id number] [place] [address] [place] Phosphate SerPl-mCncon 04-22 Phosphate [Mass/Vol] 4.0 mg/dL Normal 2.7-4.8 [facility] Comment on above: Order Comment: Speci men Type: BLOOD SPECIMENOrdering Facility: [facility] Address: [address] [place] [address] Performed By: #### 2 4323-8, 48517-5, 2777-1 ####[facility] LABORATORYCLIA [id number] [place] [id number] [place] CBC panel Auto (Bld)on 04-21 Erythrocyte distribution width (RBC) [Ratio] 14.9 % Normal 11.5-15.0 [facility] Comment on above: Order Comment: Speci men Type: BLOOD SPECIMENOrdering Facility: [facility] Address: [address] [place] [address] Performed By: #### 5 8410-2 ####[facility] LABORATORYCLIA [id number] [address] [place] Hematocrit (Bld) [Volume fraction] 30.2 % Low 39.0-51.0 [facility] Comment on above: Order Comment: Speci men Type: BLOOD SPECIMENOrdering Facility: [facility] Address: [address] [place] [address] Performed By: #### 5 8410-2 ####[facility] LABORATORYCLIA [id number] [address] [place] Hemoglobin (Bld) [Mass/Vol] 9.0 g/dL Low 13.0-17.0 [facility] Comment on above: Order Comment: Speci men Type: BLOOD SPECIMENOrdering Facility: [facility] Address: [address] [place] [address] Performed By: #### 5 8410-2 ####[facility] LABORATORYCLIA [id number] [address] [place] MCH (RBC) [Entitic mass] 26.6 pg Normal 26.0-34.0 [facility] Comment on above: Order Comment: Speci men Type: BLOOD SPECIMENOrdering Facility: [facility] Address: [address] [place] [address] Performed By: #### 5 8410-2 ####[facility] LABORATORYCLIA [id number] [address] [place] MCHC (RBC) [Mass/Vol] 29.8 g/dL Low 30.5-36.0 [facility] Comment on above: Order Comment: Speci men Type: BLOOD SPECIMENOrdering Facility: [facility] Address: [address] [place] [address] Performed By: #### 5 8410-2 ####[facility] LABORATORYCLIA [id number] [address] STATES OF [facility] MCV (RBC) [Entitic vol] 89.3 fL Normal 80.0-100.0 [facility] Comment on above: Order Comment: Speci men Type: BLOOD SPECIMENOrdering Facility: [facility] Address: [address] [place] [address] Performed By: #### 5 8410-2 ####[facility] LABORATORYCLIA [id number] [address] [place] Nucleated RBC (Bld) [#/Vol] 10*3/uL Normal <0.01 [facility] Comment on above: Order Comment: Speci men Type: BLOOD SPECIMENOrdering Facility: [facility] Address: [address] [place] [address] Performed By: #### 5 8410-2 ####[facility] LABORATORYCLIA [id number] [address] Platelet mean volume (Bld) [Entitic vol] 10.6 fL Normal 9.0-12.7 [facility] Comment on above: Order Comment: Speci men Type: BLOOD SPECIMENOrdering Facility: [facility] Address: [address] [place] [address] Performed By: #### 5 8410-2 ####[facility] LABORATORYCLIA [id number] [address] Platelets (Bld) [#/Vol] 369 10*3/uL Normal 150-400 [facility] Comment on above: Order Comment: Speci men Type: BLOOD SPECIMENOrdering Facility: [facility] Address: [address] [place] [address] Performed By: #### 5 8410-2 ####[facility] LABORATORYCLIA [id number] [address] [place] RBC (Bld) [#/Vol] 3.38 10*6/uL Low 4.20-6.00 [facility] Comment on above: Order Comment: Speci men Type: BLOOD SPECIMENOrdering Facility: [facility] Address: [address] [place] [address] Performed By: #### 5 8410-2 ####[facility] LABORATORYCLIA [id number] [address] WBC (Bld) [#/Vol] 14.61 10*3/uL High 3.70-11.00 [facility] Comment on above: Order Comment: Speci men Type: BLOOD SPECIMENOrdering Facility: [facility] Address: [address] [place] [address] Performed By: #### 5 8410-2 ####[facility] LABORATORYCLIA [id number] [address] Comprehensive metabolic 2000 panelon 04-21-2025 Albumin [Mass/Vol] 2.8 g/dL Low 3.9-4.9 [facility] Comment on above: Order Comment: Speci men Type: BLOOD SPECIMENOrdering Facility: [facility] Address: [address] [place] [address] Performed By: #### 2 4323-8, 2776-09, ####[facility] LABORATORYCLIA [id number] [address] [place] ALP [Catalytic activity/Vol] 200 U/L High 38-113 [facility] Comment on above: Order Comment: Speci men Type: BLOOD SPECIMENOrdering Facility: [facility] Address: [address] [place] [address] Performed By: #### 2 4323-8, 2776-09, ####[facility] LABORATORYCLIA [id number] [address] ALT With P-5'-P [Catalytic activity/Vol] 46 U/L Normal 10-54 [facility] Comment on above: Order Comment: Speci men Type: BLOOD SPECIMENOrdering Facility: [facility] Address: [address] [place] [address] Performed By: #### 2 4323-8, 2776-, ####[facility] LABORATORYCLIA [id number] [place] [address] [place] Anion gap [Moles/Vol] 12 mmol/L Normal 8-15 [facility] Comment on above: Order Comment: Speci men Type: BLOOD SPECIMENOrdering Facility: [facility] Address: [address] [place] [address] Performed By: #### 2 4323-8, 2777, ####[facility] LABORATORYCLIA [id number] [place] [id number] [place] AST With P-5'-P [Catalytic activity/Vol] 38 U/L Normal 14-40 [facility] Comment on above: Order Comment: Speci men Type: BLOOD SPECIMENOrdering Facility: [facility] Address: [address] [place] [address] Performed By: #### 2 4323-8, 27703-20, ####[facility] LABORATORYCLIA [id number] [place] [address] [place] Bilirubin [Mass/Vol] 0.4 mg/dL Normal 0.2-1.3 [facility] Comment on above: Order Comment: Speci men Type: BLOOD SPECIMENOrdering Facility: [facility] Address: [address] [place] [address] Performed By: #### 2 4323-8, 2776-09, ####[facility] LABORATORYCLIA [id number] [place] [address] [place] Calcium [Mass/Vol] 8.5 mg/dL Normal 8.5-10.2 [facility] Comment on above: Order Comment: Speci men Type: BLOOD SPECIMENOrdering Facility: [facility] Address: [address] [place] [address] Performed By: #### 2 4323-8, 2776-09, ####[facility] LABORATORYCLIA [id number] [place] [address] [place] Chloride [Moles/Vol] 103 mmol/L Normal 98-107 [facility] Comment on above: Order Comment: Speci men Type: BLOOD SPECIMENOrdering Facility: [facility] Address: [address] [place] [address] Performed By: #### 2 4323-8, 2776-09, ####[facility] LABORATORYCLIA [id number] [place] [address] [place] CO2 [Moles/Vol] 22 mmol/L Normal 22-30 [facility] Comment on above: Order Comment: Speci men Type: BLOOD SPECIMENOrdering Facility: [facility] Address: [address] [place] [address] Performed By: #### 2 4323-8, 2776-09, ####[facility]ITALCLIA [id number] [address] STATES OF [facility] Creatinine [Mass/Vol] 1.02 mg/dL Normal 0.73-1.22 [facility] Comment on above: Order Comment: Speci men Type: BLOOD SPECIMENOrdering Facility: [facility] Address: [address] [place] [address] Performed By: #### 2 4323-8, 2776-09, ####[facility] LABORATORYCLIA [id number] [address] [place] eGFRcr SerPlBld CKD-EPI 2020 78 mL/min/1.73m??? Normal >=60 [facility] Comment on above: Order Comment: Speci men Type: BLOOD SPECIMENOrdering Facility: [facility] Address: [address] [place] [address] Result Comment: Mary Kay mated Glomerular Filtration Rate (eGFR) is calculated using the 2020 CKD-EPI creatinine equation. This equation utilizes serum creatinine, sex, and age as parameters. The creatinine assay has traceable calibration to isotope dilution-mass spectrometry. Refer to KDIGO guidelines for clinical interpretation. In patients with unstable renal function, e.g. those with acute kidney injury, the eGFR may not accurately reflect actual GFR. Performed By: #### 2 4323-8, 27703-20, ####[facility] LABORATORYCLIA [id number] [place] [id number] [place] Glucose [Mass/Vol] 214 mg/dL High 74-99 [facility] Comment on above: Order Comment: Speci men Type: BLOOD SPECIMENOrdering Facility: [facility] Address: [address] [place] [address] Result Comment: The [place] Diabetes [employer] (ADA) provides guidance for cutoff values for fasting glucose and random glucose. The ADA defines fasting as no caloric intake for at least 8 hours. Fasting plasma glucose results between 100 to 125 mg/dL indicate increased risk for diabetes (prediabetes).Fasting plasma glucose results greater than or equal to 126 mg/dL meet the criteria for diagnosis of diabetes. In the absence of unequivocal hyperglycemia, results should be confirmed by repeat testing. In a patient with classic symptoms of hyperglycemia or hyperglycemic crisis, random plasma glucose results greater than or equal to 200 mg/dL meet the criteria for diagnosis of diabetes.Reference: Standards of Medical Care in Diabetes 2016, [place] [employer]. Diabetes Care. 2016.39(Suppl 1). Performed By: #### 2 4323-8, 27703-20, ####[facility] COUNTYIA [id number] [place] [id number] [place] Potassium [Moles/Vol] 3.7 mmol/L Normal 3.7-5.1 [facility] Comment on above: Order Comment: [place] men Type: BLOOD SPECIMENOrdering Facility: [facility] Address: [address] [place] [address] Performed By: #### 2 4323-8, 27703-20, ####[facility]PITALCLIA [id number] [place] [address] [place] Protein [Mass/Vol] 6.6 g/dL Normal 6.3-8.0 [facility] Comment on above: Order Comment: Dahianai men Type: BLOOD SPECIMENOrdering Facility: [facility] Address: [address] [place], [place] [address] Performed By: #### 2 4323-8, 27703-20, ####[facility] LABORATORYCLIA [id number] [place] [address] [place] Sodium [Moles/Vol] 137 mmol/L Normal 136-144 [facility] Comment on above: Order Comment: Speci men Type: BLOOD SPECIMENOrdering Facility: [facility] Address: [address] [place] [address] Performed By: #### 2 4323-8, 2777-1, 66567-4 ####[facility] LABORATORYCLIA [id number] [place] [address] [place] Urea nitrogen [Mass/Vol] 23 mg/dL Normal 9-24 [facility] Comment on above: Order Comment: Speci men Type: BLOOD SPECIMENOrdering Facility: [facility] Address: [address] [place] [address] Performed By: #### 2 4323-8, 27703-20, ####[facility] LABORATORYCLIA [id number] [place] [id number] [place] Gas and Carbon monoxide pane l (BldV)on 04-21-2025 Base excess Calc (BldV) [Moles/Vol] 1 mmol/L Normal 0-2 [facility] Comment on above: Order Comment: Speci men Type: VENOUS BLOOD SPECIMENOrdering Facility: [facility] Address: [address] [place] [address] Performed By: #### 2 4344-4 ####[facility] LABORATORYCLIA [id number] [place] [id number] [place] Body temperature 98.6 [degF] Normal [facility] Comment on above: Order Comment: Speci men Type: VENOUS BLOOD SPECIMENOrdering Facility: [facility] Address: [address] [place] [address] Performed By: #### 2 4344-4 ####[facility] LABORATORYCLIA [id number] [place] [id number] [place] Calcium.ionized (BldV) [Mass/Vol] 1.13 mmol/L Normal 1.08-1.30 [facility] Comment on above: Order Comment: Speci men Type: VENOUS BLOOD SPECIMENOrdering Facility: [facility] Address: [address] [place] [address] Performed By: #### 2 4344-4 ####[facility] LABORATORYCLIA [id number] [place] [address] [place] Calcium.ionized adjusted to pH 7.4 (BldA) [Moles/Vol] 1.14 mmol/L Normal 1.08-1.30 [facility] Comment on above: Order Comment: Speci men Type: VENOUS BLOOD SPECIMENOrdering Facility: [facility] Address: [address] [place] [address] Performed By: #### 2 4344-4 ####[facility] LABORATORYCLIA [id number] [address] [place] Carboxyhemoglobin (BldV) [Mass fraction] 2.3 % High 0.0-2.0 [facility] Comment on above: Order Comment: Speci men Type: VENOUS BLOOD SPECIMENOrdering Facility: [facility] Address: [address] [place] [address] Result Comment: Carb oxyhemoglobin Reference Range for Smokers: 2.0-8.0% Performed By: #### 2 4344-4 ####[facility] LABORATORYCLIA [id number] [place] [address] [place] Chloride [Moles/Vol] 107 mmol/L High 97-105 [facility] Comment on above: Order Comment: Speci men Type: VENOUS BLOOD SPECIMENOrdering Facility: [facility] Address: [address] [place] [address] Performed By: #### 2 4344-4 ####[facility] LABORATORYCLIA [id number] [place] [address] [place] CO2 (BldV) [Partial pressure] 39 mm[Hg] Low 42-55 [facility] Comment on above: Order Comment: Speci men Type: VENOUS BLOOD SPECIMENOrdering Facility: [facility] Address: [address] [place] [address] Performed By: #### 2 4344-4 ####[facility]ORATORYCLIA [id number] [place] [address] [place] FIO2 40 % Normal [facility] Comment on above: Order Comment: Speci men Type: VENOUS BLOOD SPECIMENOrdering Facility: [facility] Address: [address] [place] [address] Performed By: #### 2 4344-4 ####[facility] LABORATORYCLIA [id number] [place] [address] [place] Glucose [Mass/Vol] 223 mg/dL High 60-105 [facility] Comment on above: Order Comment: Speci men Type: VENOUS BLOOD SPECIMENOrdering Facility: [facility] Address: [address] [place] [address] Performed By: #### 2 4344-4 ####[facility] LABORATORYCLIA [id number] [place] [address] [place] HCO3 (Bld) [Moles/Vol] 25 mmol/L Normal 24-28 [facility] Comment on above: Order Comment: Speci men Type: VENOUS BLOOD SPECIMENOrdering Facility: [facility] Address: [address] [place] [address] Performed By: #### 2 4344-4 ####[facility] LABORATORYCLIA [id number] [address] [place] Hematocrit (Bld) [Volume fraction] 25.1 % Low 39.0-51.0 [facility] Comment on above: Order Comment: Speci men Type: VENOUS BLOOD SPECIMENOrdering Facility: [facility] Address: [address] [place] [address] Performed By: #### 2 4344-4 ####[facility] LABORATORYCLIA [id number] [address] [place] Hemoglobin (Bld) [Mass/Vol] 8.1 g/dL Low 13.0-17.0 [facility] Comment on above: Order Comment: Speci men Type: VENOUS BLOOD SPECIMENOrdering Facility: [facility] Address: [address] [place] [address] Performed By: #### 2 4344-4 ####[facility]ORATORYCLIA [id number] [place] [address] [place] INHALED TIDAL VOLUME (ML) 450 Normal [facility] Comment on above: Order Comment: Speci men Type: VENOUS BLOOD SPECIMENOrdering Facility: [facility] Address: [address] [place] [address] Performed By: #### 2 4344-4 ####[facility]ORATORYCLIA [id number] [address] [place] Lactate [Moles/Vol] 0.9 mmol/L Normal 0.5-2.2 [facility] Comment on above: Order Comment: Speci men Type: VENOUS BLOOD SPECIMENOrdering Facility: [facility] Address: [address] [place] [address] Performed By: #### 2 4344-4 ####[facility] LABORATORYCLIA [id number] [address] [place] Methemoglobin (Bld) [Mass fraction] 1.4 % Normal 0.0-1.5 [facility] Comment on above: Order Comment: Speci men Type: VENOUS BLOOD SPECIMENOrdering Facility: [facility] Address: [address] [place] [address] Performed By: #### 2 4344-4 ####[facility]ORATORYCLIA [id number] [address] [place] O2 THERAPY VENT=Ventilator Normal [facility] Comment on above: Order Comment: Speci men Type: VENOUS BLOOD SPECIMENOrdering Facility: [facility] Address: [address] [place] [address] Performed By: #### 2 4344-4 ####[facility]ORATORYCLIA [id number] [address] [place] Oxygen (BldV) [Partial pressure] 77 mm[Hg] High 35-45 [facility] Comment on above: Order Comment: Speci men Type: VENOUS BLOOD SPECIMENOrdering Facility: [facility] Address: [address] [place] [address] Performed By: #### 2 4344-4 ####[facility] LABORATORYCLIA [id number] [place], [place] [id number] [place] [address] [place] [facility] Oxygen saturation in Venous blood 94 % High 60-85 [facility] Comment on above: Order Comment: Speci men Type: VENOUS BLOOD SPECIMENOrdering Facility: [facility] Address: [address] [place] [address] Performed By: #### 2 4344-4 ####[facility] LABORATORYCLIA [id number] [place] [address] [place] Oxyhemoglobin (BldV) [Mass fraction] 91 % High 60-85 [facility] Comment on above: Order Comment: Speci men Type: VENOUS BLOOD SPECIMENOrdering Facility: [facility] Address: [address] [place] [address] Performed By: #### 2 4344-4 ####[facility] LABORATORYCLIA [id number] [place] [address] [place] PEEP/CPAP 5 cmH2O Normal [facility] Comment on above: Order Comment: Speci men Type: VENOUS BLOOD SPECIMENOrdering Facility: [facility] Address: [address] [place] [address] Performed By: #### 2 4344-4 ####[facility]ORATORYCLIA [id number] [address] [place] pH (BldV) 7.42 [pH] Normal 7.32-7.42 [facility] Comment on above: Order Comment: Speci men Type: VENOUS BLOOD SPECIMENOrdering Facility: [facility] Address: [address] [place] [address] Performed By: #### 2 4344-4 ####[facility]ORATORYCLIA [id number] [address] [place] Potassium [Moles/Vol] 3.6 mmol/L Normal 3.5-5.0 [facility] Comment on above: Order Comment: Speci men Type: VENOUS BLOOD SPECIMENOrdering Facility: [facility] Address: [address] [place] [address] Performed By: #### 2 4344-4 ####[facility]ORATORYCLIA [id number] [address] SET VENTILATOR RESPIRATORY RATE (BPM) 20 BPM Normal [facility] Comment on above: Order Comment: Speci men Type: VENOUS BLOOD SPECIMENOrdering Facility: [facility] Address: [address] [place] [address] Performed By: #### 2 4344-4 ####[facility]ORATORYCLIA [id number] [address] [place] Sodium [Moles/Vol] 141 mmol/L Normal 136-144 [facility] Comment on above: Order Comment: Speci men Type: VENOUS BLOOD SPECIMENOrdering Facility: [facility] Address: [address] [place] [address] Performed By: #### 2 4344-4 ####[facility] LABORATORYCLIA [id number] [address] HIGH SENSITIVITY TROPONIN To n 04-21-2025 Troponin T.cardiac High sensitivity method [Mass/Vol] 155 ng/L High <12 [facility] Comment on above: Order Comment: Speci men Type: BLOOD SPECIMENOrdering Facility: [facility] Address: [address] [place] [address] Performed By: #### H STNT ####[facility] LABORATORYCLIA [id number] [address] [place] Troponin T.cardiac High sensitivity method [Mass/Vol] 161 ng/L High <12 [facility] Comment on above: Order Comment: Speci men Type: BLOOD SPECIMENOrdering Facility: [facility] Address: [address] [place] [address] Performed By: #### H STNT ####[facility]ORATORYCLIA [id number] [address] [place] Troponin T.cardiac High sensitivity method [Mass/Vol] 151 ng/L High <12 [facility] Comment on above: Order Comment: Speci men Type: BLOOD SPECIMENOrdering Facility: [facility] Address: [address] [place] [address] Performed By: #### H STNT ####[facility] LABORATORYCLIA [id number] [place] [address] [place] Hgb Bld-mCncon 04-21-2025 Hemoglobin (Bld) [Mass/Vol] 7.2 g/dL Low 13.0-17.0 [facility] Comment on above: Order Comment: Speci men Type: BLOOD SPECIMENOrdering Facility: [facility] Address: [address] [place] [address] Performed By: #### 7 18-7 ####[facility] LABORATORYCLIA [id number] [place] [address] [place] Hemoglobin (Bld) [Mass/Vol] 8.0 g/dL Low 13.0-17.0 [facility] Comment on above: Order Comment: Speci men Type: BLOOD SPECIMENOrdering Facility: [facility] Address: [address] [place] [address] Performed By: #### 7 18-7 ####[facility] LABORATORYCLIA [id number] [place] [address] [place] Hemoglobin (Bld) [Mass/Vol] 7.9 g/dL Low 13.0-17.0 [facility] Comment on above: Order Comment: Speci men Type: BLOOD SPECIMENOrdering Facility: [facility] Address: [address] [place] [address] Performed By: #### 7 18-7 ####[facility] LABORATORYCLIA [id number] [place] [address] [place] Magnesium SerPl-ncon 04-21 Magnesium [Mass/Vol] 1.6 mg/dL Low 1.7-2.3 [facility] Comment on above: Order Comment: Speci men Type: BLOOD SPECIMENOrdering Facility: [facility] Address: [address] [place] [address] Performed By: #### 1 9123-9, K1 ####[facility] LABORATORYCLIA [id number] [place] [address] [place] Magnesium [Mass/Vol] 1.8 mg/dL Normal 1.7-2.3 [facility] Comment on above: Order Comment: Speci men Type: BLOOD SPECIMENOrdering Facility: [facility] Address: [address] [place] [address] Performed By: #### 2 4323-8, 2777-1, 53765-3 ####[facility] LABORATORYCLIA [id number] [place] [id number] [place] POTASSIUMon 04-21-2025 Potassium [Moles/Vol] 3.3 mmol/L Low 3.7-5.1 [facility] Comment on above: Order Comment: Speci men Type: BLOOD SPECIMENOrdering Facility: [facility] Address: [address] [place] [address] Performed By: #### 1 9123-9, K1 ####[facility] LABORATORYCLIA [id number] [place] [address] [place] Phosphate SerPl-mCncon 04-21 Phosphate [Mass/Vol] 3.6 mg/dL Normal 2.7-4.8 [facility] Comment on above: Order Comment: Speci men Type: BLOOD SPECIMENOrdering Facility: [facility] Address: [address] [place] [address] Performed By: #### 2 4323-8, 2777-1, ####[facility] LABORATORYCLIA [id number] [place] [address] [place] THERAPY NTon 04-21-2025 THERAPY NT Normal [facility] XR ABDOMEN 1V SUPINEon 04-21 XR ABDOMEN 1V SUPINE Normal [facility] XR CHEST 1V FRONTALon 2024 XR CHEST 1V FRONTAL Normal [facility] CASE MANAGEMon 04-20-2025 CASE MANAGEM Normal [facility] CASE MANAGEM Normal [facility] CBC panel Auto (Bld)on 04-20 Erythrocyte distribution width (RBC) [Ratio] 15.1 % High 11.5-15.0 [facility] Comment on above: Order Comment: Speci men Type: BLOOD SPECIMENOrdering Facility: [facility] Address: [address] [place] [address] Performed By: #### 5 8410-2 ####[facility] LABORATORYCLIA [id number] [address] STATES OF [facility] Hemoglobin (Bld) [Mass/Vol] 8.9 g/dL Low 13.0-17.0 [facility] Comment on above: Order Comment: Speci men Type: BLOOD SPECIMENOrdering Facility: [facility] Address: [address] [place] [address] Performed By: #### 5 8410-2 ####[facility] LABORATORYCLIA [id number] [address] [place] MCH (RBC) [Entitic mass] 27.3 pg Normal 26.0-34.0 [facility] Comment on above: Order Comment: Speci men Type: BLOOD SPECIMENOrdering Facility: [facility] Address: [address] [place] [address] Performed By: #### 5 8410-2 ####[facility] LABORATORYCLIA [id number] [address] [place] MCHC (RBC) [Mass/Vol] 30.9 g/dL Normal 30.5-36.0 [facility] Comment on above: Order Comment: Speci men Type: BLOOD SPECIMENOrdering Facility: [facility] Address: [address] [place] [address] Performed By: #### 5 8410-2 ####[facility] LABORATORYCLIA [id number] [address] [place] MCV (RBC) [Entitic vol] 88.3 fL Normal 80.0-100.0 [facility] Comment on above: Order Comment: Speci men Type: BLOOD SPECIMENOrdering Facility: [facility] Address: [address] [place] [address] Performed By: #### 5 8410-2 ####[facility] LABORATORYCLIA [id number] [address] [place] Nucleated RBC (Bld) [#/Vol] 10*3/uL Normal <0.01 [facility] Comment on above: Order Comment: Speci men Type: BLOOD SPECIMENOrdering Facility: [facility] Address: [address] [place] [address] Performed By: #### 5 8410-2 ####[facility] LABORATORYCLIA [id number] [address] [place] Platelet mean volume (Bld) [Entitic vol] 10.8 fL Normal 9.0-12.7 [facility] Comment on above: Order Comment: Speci men Type: BLOOD SPECIMENOrdering Facility: [facility] Address: [address] [place] [address] Performed By: #### 5 8410-2 ####[facility] LABORATORYCLIA [id number] [address] [place] Platelets (Bld) [#/Vol] 402 10*3/uL High 150-400 [facility] Comment on above: Order Comment: Speci men Type: BLOOD SPECIMENOrdering Facility: [facility] Address: [address] [place] [address] Performed By: #### 5 8410-2 ####[facility] LABORATORYCLIA [id number] [address] [place] RBC (Bld) [#/Vol] 3.26 10*6/uL Low 4.20-6.00 [facility] Comment on above: Order Comment: Speci men Type: BLOOD SPECIMENOrdering Facility: [facility] Address: [address] [place] [address] Performed By: #### 5 8410-2 ####[facility] LABORATORYCLIA [id number] [address] [place] WBC (Bld) [#/Vol] 11.96 10*3/uL High 3.70-11.00 [facility] Comment on above: Order Comment: Speci men Type: BLOOD SPECIMENOrdering Facility: [facility] Address: [facility] [place] [address] Performed By: #### 5 8410-2 ####[facility]ITALCLIA [id number] [address] [place] CYSTATIN Con 04-20-2025 Cystatin C [Mass/Vol] 1.60 mg/L High 0.61-0.95 [facility] Comment on above: Order Comment: Speci men Type: BLOOD SPECIMENOrdering Facility: [facility] Address: [address] [place] [address] Performed By: #### C YSTC ####[facility] LABCLIA [id number] [address] [place] CYSTATIN C EGFR 40 mL/min/1.73m??? Low >=60 A [facility] Comment on above: Order Comment: Speci men Type: BLOOD SPECIMENOrdering Facility: [facility] Address: [address] [place] [address] Result Comment: Mary Kay mated Glomerular Filtration Rate (eGFR) is calculated using the 2012 CKD-EPI cystatin C equation. This equation utilizes serum cystatin C, sex, and age as parameters. The cystatin C assay has traceable calibration to the ERM-DA471/IF reference material. Refer to KDIGO guidelines for clinical interpretation. In patients with unstable renal function, e.g. those with acute kidney injury, the eGFR may not accurately reflect actual GFR. Performed By: #### C YSTC ####[facility] LABCLIA [id number] [place] [address] [place] Comprehensive metabolic 2000 panelon 04-20-2025 Albumin [Mass/Vol] 2.9 g/dL Low 3.9-4.9 [facility] Comment on above: Order Comment: Speci men Type: BLOOD SPECIMENOrdering Facility: [facility] Address: [address] [place] [address] Performed By: #### 2 777-1, 67577-4, 67020-0 ####[facility] LABORATORYCLIA [id number] [place] [address] [place] ALP [Catalytic activity/Vol] 197 U/L High 38-113 [facility] Comment on above: Order Comment: Speci men Type: BLOOD SPECIMENOrdering Facility: [facility] Address: [address] [place] [address] Performed By: #### 2 777-1, , ####[facility] LABORATORYCLIA [id number] [place] [address] [place] ALT With P-5'-P [Catalytic activity/Vol] 49 U/L Normal 10-54 [facility] Comment on above: Order Comment: Speci men Type: BLOOD SPECIMENOrdering Facility: [facility] Address: [address] [place] [address] Performed By: #### 2 777-1, , ####[facility] LABORATORYCLIA [id number] [address] [place] Anion gap [Moles/Vol] 13 mmol/L Normal 8-15 [facility] Comment on above: Order Comment: Speci men Type: BLOOD SPECIMENOrdering Facility: [facility] Address: [address] [place] [address] Performed By: #### 2 777-1, , ####[facility] LABORATORYCLIA [id number] [place] [address] [place] AST With P-5'-P [Catalytic activity/Vol] 59 U/L High 14-40 [facility] Comment on above: Order Comment: Speci men Type: BLOOD SPECIMENOrdering Facility: [facility] Address: [address] [place] [address] Performed By: #### 2 777-1, , ####[facility] LABORATORYCLIA [id number] [place] [address] [place] Bilirubin [Mass/Vol] 0.4 mg/dL Normal 0.2-1.3 [facility] Comment on above: Order Comment: Speci men Type: BLOOD SPECIMENOrdering Facility: [facility] Address: [address] [place] [address] Performed By: #### 2 777-1, , ####[facility] LABORATORYCLIA [id number] [place] [address] [place] Calcium [Mass/Vol] 8.6 mg/dL Normal 8.5-10.2 [facility] Comment on above: Order Comment: Speci men Type: BLOOD SPECIMENOrdering Facility: [facility] Address: [address] [place] [address] Performed By: #### 2 777-1, , ####[facility] LABORATORYCLIA [id number] [place] [address] [place] Chloride [Moles/Vol] 104 mmol/L Normal 98-107 [facility] Comment on above: Order Comment: Speci men Type: BLOOD SPECIMENOrdering Facility: [facility] Address: [address] [place] [address] Performed By: #### 2 777-1, , ####[facility] LABORATORYCLIA [id number] [place] [address] [place] CO2 [Moles/Vol] 22 mmol/L Normal 22-30 [facility] Comment on above: Order Comment: Speci men Type: BLOOD SPECIMENOrdering Facility: [facility] Address: [address] [place] [address] Performed By: #### 2 777-1, , ####[facility]ATORYCLIA [id number] [place] [address] [place] Creatinine [Mass/Vol] 0.99 mg/dL Normal 0.73-1.22 [facility] Comment on above: Order Comment: Speci men Type: BLOOD SPECIMENOrdering Facility: [facility] Address: [address] [place] [address] Performed By: #### 2 777-1, , ####[facility]ITALCLIA [id number] [place] [address] [place] eGFRcr SerPlBld CKD-EPI 2020 80 mL/min/1.73m??? Normal >=60 [facility] Comment on above: Order Comment: Jose Cruz johnson Type: BLOOD SPECIMENOrdering Facility: [facility] Address: [address] [place] [address] Result Comment: Mary Kay mated Glomerular Filtration Rate (eGFR) is calculated using the 2020 CKD-EPI creatinine equation. This equation utilizes serum creatinine, sex, and age as parameters. The creatinine assay has traceable calibration to isotope dilution-mass spectrometry. Refer to KDIGO guidelines for clinical interpretation. In patients with unstable renal function, e.g. those with acute kidney injury, the eGFR may not accurately reflect actual GFR. Performed By: #### 2 777-1, 29900-6, ####[facility] COUNTYIA [id number] [place] [id number] [place] Glucose [Mass/Vol] 210 mg/dL High 74-99 [facility] Comment on above: Order Comment: Jose Cruz alex Type: BLOOD SPECIMENOrdering Facility: [facility] Address: [address] [place] [address] Result Comment: The [place] [employer] (ADA) provides guidance for cutoff values for fasting glucose and random glucose. The ADA defines fasting as no caloric intake for at least 8 hours. Fasting plasma glucose results between 100 to 125 mg/dL indicate increased risk for diabetes (prediabetes).Fasting plasma glucose results greater than or equal to 126 mg/dL meet the criteria for diagnosis of diabetes. In the absence of unequivocal hyperglycemia, results should be confirmed by repeat testing. In a patient with classic symptoms of hyperglycemia or hyperglycemic crisis, random plasma glucose results greater than or equal to 200 mg/dL meet the criteria for diagnosis of diabetes.Reference: Standards of Medical Care in Diabetes 2016, [place] [employer]. Diabetes Care. 2016.39(Suppl 1). Performed By: #### 2 777-1, 79313-3, ####[facility] LABORATORYCLIA [id number] [place] [address] [place] Potassium [Moles/Vol] 3.8 mmol/L Normal 3.7-5.1 [facility] Comment on above: Order Comment: Speci men Type: BLOOD SPECIMENOrdering Facility: [facility] Address: [address] [place] [address] Performed By: #### 2 777-1, , ####[facility] LABORATORYCLIA [id number] [place] [address] [place] Protein [Mass/Vol] 6.1 g/dL Low 6.3-8.0 [facility] Comment on above: Order Comment: Speci men Type: BLOOD SPECIMENOrdering Facility: [facility] Address: [address] [place] [address] Performed By: #### 2 777-1, , ####[facility] LABORATORYCLIA [id number] [address] [place] Sodium [Moles/Vol] 139 mmol/L Normal 136-144 [facility] Comment on above: Order Comment: Speci men Type: BLOOD SPECIMENOrdering Facility: [facility] Address: [address] [place] [address] Performed By: #### 2 777-1, , ####[facility] LABORATORYCLIA [id number] [place] [address] [place] Urea nitrogen [Mass/Vol] 25 mg/dL High 9-24 [facility] Comment on above: Order Comment: Speci men Type: BLOOD SPECIMENOrdering Facility: [facility] Address: [address] [place] [address] Performed By: #### 2 777-1, , ####[facility] LABORATORYCLIA [id number] [place] [address] [place] Gas + CO Pnl BldVon 04-20-20 25 Hematocrit (Bld) [Volume fraction] 28.8 % Low 39.0-51.0 [facility] Comment on above: Order Comment: Speci men Type: VENOUS BLOOD SPECIMENOrdering Facility: [facility] Address: [address] [place] [address] Performed By: #### 2 4344-4 ####[facility] LABORATORYCLIA [id number] [address] Order Comment: Speci men Type: BLOOD SPECIMENOrdering Facility: [facility] Address: [address] [place] [address] Performed By: #### 5 8410-2 ####[facility] LABORATORYCLIA [id number] [address] Gas and Carbon monoxide pane l (BldV)on 04-20-2025 Base excess Calc (BldV) [Moles/Vol] 1 mmol/L Normal 0-2 [facility] Comment on above: Order Comment: Speci men Type: VENOUS BLOOD SPECIMENOrdering Facility: [facility] Address: [address] [place] [address] Performed By: #### 2 4344-4 ####[facility] LABORATORYCLIA [id number] [address] Body temperature 98.6 [degF] Normal [facility] Comment on above: Order Comment: Speci men Type: VENOUS BLOOD SPECIMENOrdering Facility: [facility] Address: [address] [place] [address] Performed By: #### 2 4344-4 ####[facility] LABORATORYCLIA [id number] [address] Calcium.ionized (BldV) [Mass/Vol] 1.09 mmol/L Normal 1.08-1.30 [facility] Comment on above: Order Comment: Speci men Type: VENOUS BLOOD SPECIMENOrdering Facility: [facility] Address: [address] [place] [address] Performed By: #### 2 4344-4 ####[facility] LABORATORYCLIA [id number] [address] Calcium.ionized adjusted to pH 7.4 (BldA) [Moles/Vol] 1.12 mmol/L Normal 1.08-1.30 [facility] Comment on above: Order Comment: Speci men Type: VENOUS BLOOD SPECIMENOrdering Facility: [facility] Address: [address] [place] [address] Performed By: #### 2 4344-4 ####[facility] LABORATORYCLIA [id number] [address] [place] Carboxyhemoglobin (BldV) [Mass fraction] 2.4 % High 0.0-2.0 [facility] Comment on above: Order Comment: Speci men Type: VENOUS BLOOD SPECIMENOrdering Facility: [facility] Address: [address] [place] [address] Result Comment: Carb oxyhemoglobin Reference Range for Smokers: 2.0-8.0% Performed By: #### 2 4344-4 ####[facility] LABORATORYCLIA [id number] [place] [address] [place] Chloride [Moles/Vol] 109 mmol/L High 97-105 [facility] Comment on above: Order Comment: Speci men Type: VENOUS BLOOD SPECIMENOrdering Facility: [facility] Address: [address] [place] [address] Performed By: #### 2 4344-4 ####[facility] LABORATORYCLIA [id number] [address] [place] CO2 (BldV) [Partial pressure] 36 mm[Hg] Low 42-55 [facility] Comment on above: Order Comment: Speci men Type: VENOUS BLOOD SPECIMENOrdering Facility: [facility] Address: [address] [place] [address] Performed By: #### 2 4344-4 ####[facility] LABORATORYCLIA [id number] [place] [address] [place] FIO2 35 % Normal [facility] Comment on above: Order Comment: Speci men Type: VENOUS BLOOD SPECIMENOrdering Facility: [facility] Address: [address] [place] [address] Performed By: #### 2 4344-4 ####[facility]ORATORYCLIA [id number] [place] [address] [place] Glucose [Mass/Vol] 217 mg/dL High 60-105 [facility] Comment on above: Order Comment: Speci men Type: VENOUS BLOOD SPECIMENOrdering Facility: [facility] Address: [address] [place] [address] Performed By: #### 2 4344-4 ####[facility]ORATORYCLIA [id number] [place] [address] [place] HCO3 (Bld) [Moles/Vol] 24 mmol/L Normal 24-28 [facility] Comment on above: Order Comment: Speci men Type: VENOUS BLOOD SPECIMENOrdering Facility: [facility] Address: [address] [place] [address] Performed By: #### 2 4344-4 ####[facility] LABORATORYCLIA [id number] [place] [address] [place] Hemoglobin (Bld) [Mass/Vol] 9.3 g/dL Low 13.0-17.0 [facility] Comment on above: Order Comment: Speci men Type: VENOUS BLOOD SPECIMENOrdering Facility: [facility] Address: [address] [place] [address] Performed By: #### 2 4344-4 ####[facility] LABORATORYCLIA [id number] [address] [place] INHALED TIDAL VOLUME (ML) 450 Normal [facility] Comment on above: Order Comment: Speci men Type: VENOUS BLOOD SPECIMENOrdering Facility: [facility] Address: [address] [place] [address] Performed By: #### 2 4344-4 ####[facility] LABORATORYCLIA [id number] [address] [place] Lactate [Moles/Vol] 1.0 mmol/L Normal 0.5-2.2 [facility] Comment on above: Order Comment: Speci men Type: VENOUS BLOOD SPECIMENOrdering Facility: [facility] Address: [address] [place] [address] Performed By: #### 2 4344-4 ####[facility]ORATORYCLIA [id number] [place] [address] [place] Methemoglobin (Bld) [Mass fraction] 1.2 % Normal 0.0-1.5 [facility] Comment on above: Order Comment: Speci men Type: VENOUS BLOOD SPECIMENOrdering Facility: [facility] Address: [address] [place] [address] Performed By: #### 2 4344-4 ####[facility]ORATORYCLIA [id number] [address] [place] O2 THERAPY VENT=Ventilator Normal [facility] Comment on above: Order Comment: Speci men Type: VENOUS BLOOD SPECIMENOrdering Facility: [facility] Address: [address] [place] [address] Performed By: #### 2 4344-4 ####[facility]ORATORYCLIA [id number] [address] [place] Oxygen (BldV) [Partial pressure] 111 mm[Hg] High 35-45 [facility] Comment on above: Order Comment: Speci men Type: VENOUS BLOOD SPECIMENOrdering Facility: [facility] Address: [address] [place] [address] Performed By: #### 2 4344-4 ####[facility]ORATORYCLIA [id number] [address] [place] Oxygen saturation in Venous blood 98 % High 60-85 [facility] Comment on above: Order Comment: Speci men Type: VENOUS BLOOD SPECIMENOrdering Facility: [facility] Address: [address] [place] [address] Performed By: #### 2 4344-4 ####[facility]ORATORYCLIA [id number] [address] [place] Oxyhemoglobin (BldV) [Mass fraction] 95 % High 60-85 [facility] Comment on above: Order Comment: Speci men Type: VENOUS BLOOD SPECIMENOrdering Facility: [facility] Address: [address] [place] [address] Performed By: #### 2 4344-4 ####[facility]ORATORYCLIA [id number] [address] PEEP/CPAP 54 cmH2O Normal [facility] Comment on above: Order Comment: Speci men Type: VENOUS BLOOD SPECIMENOrdering Facility: [facility] Address: [address] [place] [address] Performed By: #### 2 4344-4 ####[facility] LABORATORYCLIA [id number] [address] [place] pH (BldV) 7.44 [pH] High 7.32-7.42 [facility] Comment on above: Order Comment: Speci men Type: VENOUS BLOOD SPECIMENOrdering Facility: [facility] Address: [address] [place] [address] Performed By: #### 2 4344-4 ####[facility] LABORATORYCLIA [id number] [address] [place] Potassium [Moles/Vol] 4.4 mmol/L Normal 3.5-5.0 [facility] Comment on above: Order Comment: Speci men Type: VENOUS BLOOD SPECIMENOrdering Facility: [facility] Address: [address] [place] [address] Performed By: #### 2 4344-4 ####[facility] LABORATORYCLIA [id number] [address] SET VENTILATOR RESPIRATORY RATE (BPM) 20 BPM Normal [facility] Comment on above: Order Comment: Speci men Type: VENOUS BLOOD SPECIMENOrdering Facility: [facility] Address: [address] [place] [address] Performed By: #### 2 4344-4 ####[facility]ORATORYCLIA [id number] [address] [place] Sodium [Moles/Vol] 140 mmol/L Normal 136-144 [facility] Comment on above: Order Comment: Speci men Type: VENOUS BLOOD SPECIMENOrdering Facility: [facility] Address: [address] [place] [address] Performed By: #### 2 4344-4 ####[facility] LABORATORYCLIA [id number] [address] [place] Hgb Bld-mCncon 04-20-2025 Hemoglobin (Bld) [Mass/Vol] 7.9 g/dL Low 13.0-17.0 [facility] Comment on above: Order Comment: Speci men Type: BLOOD SPECIMENOrdering Facility: [facility] Address: [address] [place] [address] Performed By: #### 7 18-7 ####[facility] LABORATORYCLIA [id number] [place] [address] [place] Hemoglobin (Bld) [Mass/Vol] 7.6 g/dL Low 13.0-17.0 [facility] Comment on above: Order Comment: Speci men Type: BLOOD SPECIMENOrdering Facility: [facility] Address: [address] [place] [address] Performed By: #### 7 18-7 ####[facility] LABORATORYCLIA [id number] [place] [address] [place] Magnesium SerPl-ncon 04-20 Magnesium [Mass/Vol] 1.8 mg/dL Normal 1.7-2.3 [facility] Comment on above: Order Comment: Speci men Type: BLOOD SPECIMENOrdering Facility: [facility] Address: [address] [place] [address] Performed By: #### 2 777-1, 47893-6, 80881-1 ####[facility] LABORATORYCLIA [id number] [place] [address] [place] NUTRITIONon 04-20-2025 NUTRITION Normal [facility] Phosphate SerPl-mCncon 04-20 Phosphate [Mass/Vol] 3.1 mg/dL Normal 2.7-4.8 [facility] Comment on above: Order Comment: Speci men Type: BLOOD SPECIMENOrdering Facility: [facility] Address: [address] [place] [address] Performed By: #### 2 777-1, 02701-7, 34476-1 ####[facility]ORATORYCLIA [id number] [place] [address] [place] Albumin SerPl-mCncon 025 Albumin [Mass/Vol] 2.7 g/dL Low 3.9-4.9 [facility] Comment on above: Order Comment: Speci men Type: BLOOD SPECIMENOrdering Facility: [facility] Address: [address] [place] [address] Performed By: #### 2 777-1, 1751-7, 30731-5 ####[facility]ORATORYCLIA [id number] [address] [place] Basic metabolic 2000 panelon 04-19-2025 Anion gap [Moles/Vol] 11 mmol/L Normal 8-15 [facility] Comment on above: Order Comment: Speci men Type: BLOOD SPECIMENOrdering Facility: [facility] Address: [address] [place] [address] Performed By: #### 2 4321-2 ####[facility] LABORATORYCLIA [id number] [place] [address] [place] Calcium [Mass/Vol] 8.0 mg/dL Low 8.5-10.2 [facility] Comment on above: Order Comment: Speci men Type: BLOOD SPECIMENOrdering Facility: [facility] Address: [address] [place] [address] Performed By: #### 2 4321-2 ####[facility]ORATORYCLIA [id number] [place] [address] [place] Chloride [Moles/Vol] 108 mmol/L High 98-107 [facility] Comment on above: Order Comment: Speci men Type: BLOOD SPECIMENOrdering Facility: [facility] Address: [address] [place] [address] Performed By: #### 2 4321-2 ####[facility]ORATORYCLIA [id number] [place] [address] [place] CO2 [Moles/Vol] 22 mmol/L Normal 22-30 [facility] Comment on above: Order Comment: Speci men Type: BLOOD SPECIMENOrdering Facility: [facility] Address: [address] [place] [address] Performed By: #### 2 4321-2 ####[facility]ITALCLIA [id number] [place] [id number] [place] Creatinine [Mass/Vol] 0.98 mg/dL Normal 0.73-1.22 [facility] Comment on above: Order Comment: Speci men Type: BLOOD SPECIMENOrdering Facility: [facility] Address: [address] [place] [address] Performed By: #### 2 4321-2 ####[facility] COUNTYIA [id number] [address] [place] eGFRcr SerPlBld CKD-EPI 2020 81 mL/min/1.73m??? Normal >=60 [facility] Comment on above: Order Comment: Speci men Type: BLOOD SPECIMENOrdering Facility: [facility] Address: [address] [place] [address] Result Comment: Mary Kay mated Glomerular Filtration Rate (eGFR) is calculated using the 2020 CKD-EPI creatinine equation. This equation utilizes serum creatinine, sex, and age as parameters. The creatinine assay has traceable calibration to isotope dilution-mass spectrometry. Refer to KDIGO guidelines for clinical interpretation. In patients with unstable renal function, e.g. those with acute kidney injury, the eGFR may not accurately reflect actual GFR. Performed By: #### 2 4321-2 ####[facility] LABORATORYIA [id number] [address] [place] Glucose [Mass/Vol] 198 mg/dL High 74-99 [facility] Comment on above: Order Comment: Jose Cruz johnson Type: BLOOD SPECIMENOrdering Facility: [facility] Address: [address] [place] [address] Result Comment: The [place] Diabetes Association (ADA) provides guidance for cutoff values for fasting glucose and random glucose. The ADA defines fasting as no caloric intake for at least 8 hours. Fasting plasma glucose results between 100 to 125 mg/dL indicate increased risk for diabetes (prediabetes).Fasting plasma glucose results greater than or equal to 126 mg/dL meet the criteria for diagnosis of diabetes. In the absence of unequivocal hyperglycemia, results should be confirmed by repeat testing. In a patient with classic symptoms of hyperglycemia or hyperglycemic crisis, random plasma glucose results greater than or equal to 200 mg/dL meet the criteria for diagnosis of diabetes.Reference: Standards of Medical Care in Diabetes 2016, [place] [employer]. Diabetes Care. 2016.39(Suppl 1). Performed By: #### 2 4321-2 ####[facility] LABORATORYCLIA [id number] [place] [address] [place] Potassium [Moles/Vol] 3.6 mmol/L Low 3.7-5.1 [facility] Comment on above: Order Comment: Jose Cruz men Type: BLOOD SPECIMENOrdering Facility: [facility] Address: [address] [place] [address] Performed By: #### 2 4321-2 ####[facility] LABORATORYCLIA [id number] [address] [place] Sodium [Moles/Vol] 141 mmol/L Normal 136-144 [facility] Comment on above: Order Comment: Dahianai alex Type: BLOOD SPECIMENOrdering Facility: [facility] Address: [address] [place] [address] Performed By: #### 2 4321-2 ####[facility] LABORATORYCLIA [id number] [place] [address] [place] Urea nitrogen [Mass/Vol] 26 mg/dL High 9-24 [facility] Comment on above: Order Comment: Speci men Type: BLOOD SPECIMENOrdering Facility: [facility] Address: [address] [place] [address] Performed By: #### 2 4321-2 ####[facility] LABORATORYCLIA [id number] [address] [place] Anion gap [Moles/Vol] 13 mmol/L Normal 8-15 [facility] Comment on above: Order Comment: Speci men Type: BLOOD SPECIMENOrdering Facility: [facility] Address: [address] [facility] [id number] Performed By: #### 2 777-1, 1751-03, ####[facility] LABORATORYCLIA [id number] [place] [address] [place] Calcium [Mass/Vol] 7.9 mg/dL Low 8.5-10.2 [facility] Comment on above: Order Comment: Speci men Type: BLOOD SPECIMENOrdering Facility: [facility] Address: [address] [place] [address] Performed By: #### 2 777-1, 1751-03, ####[facility] LABORATORYCLIA [id number] [place] [address] [place] Chloride [Moles/Vol] 109 mmol/L High 98-107 [facility] Comment on above: Order Comment: Speci men Type: BLOOD SPECIMENOrdering Facility: [facility] Address: [address] [place] [address] Performed By: #### 2 777-1, 1751-03, ####[facility] LABORATORYCLIA [id number] [place] [address] [place] CO2 [Moles/Vol] 21 mmol/L Low 22-30 [facility] Comment on above: Order Comment: Speci men Type: BLOOD SPECIMENOrdering Facility: [facility] Address: [facility] [place] [place] [address] Performed By: #### 2 777-1, 1751-03, ####[facility] LABORATORYCLIA [id number] [place] [address] [place] Creatinine [Mass/Vol] 1.04 mg/dL Normal 0.73-1.22 [facility] Comment on above: Order Comment: Speci men Type: BLOOD SPECIMENOrdering Facility: [facility] Address: [address] [place] [address] [place] [address] Performed By: #### 2 777-1, 1751-03, 94809-0 ####[facility]ORATORYCLIA [id number] [place] [address] [place] eGFRcr SerPlBld CKD-EPI 2020 76 mL/min/1.73m??? Normal >=60 [facility] Comment on above: Order Comment: Jose Cruz johnson Type: BLOOD SPECIMENOrdering Facility: [facility] Address: [address] [place] [address] Result Comment: Mary Kay mated Glomerular Filtration Rate (eGFR) is calculated using the 2020 CKD-EPI creatinine equation. This equation utilizes serum creatinine, sex, and age as parameters. The creatinine assay has traceable calibration to isotope dilution-mass spectrometry. Refer to KDIGO guidelines for clinical interpretation. In patients with unstable renal function, e.g. those with acute kidney injury, the eGFR may not accurately reflect actual GFR. Performed By: #### 2 777-1, 175-7, 41828-9 ####[facility] LABORATORYCLIA [id number] [place] [address] [place] Glucose [Mass/Vol] 164 mg/dL High 74-99 [facility] Comment on above: Order Comment: Jose Cruz johnson Type: BLOOD SPECIMENOrdering Facility: [facility] Address: [address] [place] [address] Result Comment: The [place] Diabetes Association (ADA) provides guidance for cutoff values for fasting glucose and random glucose. The ADA defines fasting as no caloric intake for at least 8 hours. Fasting plasma glucose results between 100 to 125 mg/dL indicate increased risk for diabetes (prediabetes).Fasting plasma glucose results greater than or equal to 126 mg/dL meet the criteria for diagnosis of diabetes. In the absence of unequivocal hyperglycemia, results should be confirmed by repeat testing. In a patient with classic symptoms of hyperglycemia or hyperglycemic crisis, random plasma glucose results greater than or equal to 200 mg/dL meet the criteria for diagnosis of diabetes.Reference: Standards of Medical Care in Diabetes 2016, [place] [employer]. Diabetes Care. 2016.39(Suppl 1). Performed By: #### 2 777-1, 1751-7, 36956-7 ####[facility] LABORATORYCLIA [id number] [place] [id number] [place] Potassium [Moles/Vol] 3.6 mmol/L Low 3.7-5.1 [facility] Comment on above: Order Comment: Speci men Type: BLOOD SPECIMENOrdering Facility: [facility] Address: [address] [place] [address] Performed By: #### 2 777-1, 1751-03, 18612-4 ####[facility] LABORATORYCLIA [id number] [place], [place] [id number] [place] [address] [place] Sodium [Moles/Vol] 143 mmol/L Normal 136-144 [facility] Comment on above: Order Comment: Speci men Type: BLOOD SPECIMENOrdering Facility: [facility] Address: [address] [place] [address] Performed By: #### 2 777-1, 1751-03, ####[facility] LABORATORYCLIA [id number] [address] [place] Urea nitrogen [Mass/Vol] 25 mg/dL High 9-24 [facility] Comment on above: Order Comment: Speci men Type: BLOOD SPECIMENOrdering Facility: [facility] Address: [address] [place] [address] Performed By: #### 2 777-1, 1751-03, ####[facility] LABORATORYCLIA [id number] [address] [place] CASE MANAGEMon 04-19-2025 CASE MANAGEM Normal [facility] CBC panel Auto (Bld)on 04-19 Erythrocyte distribution width (RBC) [Ratio] 14.9 % Normal 11.5-15.0 [facility] Comment on above: Order Comment: Speci men Type: BLOOD SPECIMENOrdering Facility: [facility] Address: [address] [place] [address] Performed By: #### 5 8410-2 ####[facility] LABORATORYCLIA [id number] [address] [place] Hematocrit (Bld) [Volume fraction] 26.1 % Low 39.0-51.0 [facility] Comment on above: Order Comment: Speci men Type: BLOOD SPECIMENOrdering Facility: [facility] Address: [address] [place] [address] Performed By: #### 5 8410-2 ####[facility] LABORATORYCLIA [id number] [address] STATES [facility] Hemoglobin (Bld) [Mass/Vol] 8.3 g/dL Low 13.0-17.0 [facility] Comment on above: Order Comment: Speci men Type: BLOOD SPECIMENOrdering Facility: [facility] Address: [address] [place] [address] Performed By: #### 5 8410-2 ####[facility] LABORATORYCLIA [id number] [address] MCH (RBC) [Entitic mass] 27.8 pg Normal 26.0-34.0 [facility] Comment on above: Order Comment: Speci men Type: BLOOD SPECIMENOrdering Facility: [facility] Address: [address] [place] [address] Performed By: #### 5 8410-2 ####[facility] LABORATORYCLIA [id number] [address] STATES [facility] MCHC (RBC) [Mass/Vol] 31.8 g/dL Normal 30.5-36.0 [facility] Comment on above: Order Comment: Speci men Type: BLOOD SPECIMENOrdering Facility: [facility] Address: [address] [place] [address] Performed By: #### 5 8410-2 ####[facility] LABORATORYCLIA [id number] [address] [place] [facility] MCV (RBC) [Entitic vol] 87.3 fL Normal 80.0-100.0 [facility] Comment on above: Order Comment: Speci men Type: BLOOD SPECIMENOrdering Facility: [facility] Address: [address] [place] [address] Performed By: #### 5 8410-2 ####[facility] LABORATORYCLIA [id number] [address] [place] Nucleated RBC (Bld) [#/Vol] 10*3/uL Normal <0.01 [facility] Comment on above: Order Comment: Speci men Type: BLOOD SPECIMENOrdering Facility: [facility] Address: [address] [place] [address] Performed By: #### 5 8410-2 ####[facility] LABORATORYCLIA [id number] [address] STATES OF [facility] Platelet mean volume (Bld) [Entitic vol] 10.4 fL Normal 9.0-12.7 [facility] Comment on above: Order Comment: Speci men Type: BLOOD SPECIMENOrdering Facility: [facility] Address: [address] [place] [address] Performed By: #### 5 8410-2 ####[facility] LABORATORYCLIA [id number] [address] [place] Platelets (Bld) [#/Vol] 317 10*3/uL Normal 150-400 [facility] Comment on above: Order Comment: Speci men Type: BLOOD SPECIMENOrdering Facility: [facility] Address: [address] [place] [address] Performed By: #### 5 8410-2 ####[facility] LABORATORYCLIA [id number] [address] [place] RBC (Bld) [#/Vol] 2.99 10*6/uL Low 4.20-6.00 [facility] Comment on above: Order Comment: Speci men Type: BLOOD SPECIMENOrdering Facility: [facility] Address: [address] [place] [address] Performed By: #### 5 8410-2 ####[facility] LABORATORYCLIA [id number] [address] [place] WBC (Bld) [#/Vol] 12.26 10*3/uL High 3.70-11.00 [facility] Comment on above: Order Comment: Speci men Type: BLOOD SPECIMENOrdering Facility: [facility] Address: [address] [place] [address] Performed By: #### 5 8410-2 ####[facility] LABORATORYCLIA [id number] [address] Gas and Carbon monoxide pane l (BldV)on 04-19-2025 BASE DEFICIT, VENOUS -1 mmol/L Normal -2-0 [facility] Comment on above: Order Comment: Speci men Type: VENOUS BLOOD SPECIMENOrdering Facility: [facility] Address: [address] [place] [address] Performed By: #### 2 4344-4 ####[facility] LABORATORYCLIA [id number] [address] Body temperature 98.78 [degF] Normal [facility] Comment on above: Order Comment: Speci men Type: VENOUS BLOOD SPECIMENOrdering Facility: [facility] Address: [address] [place] [address] Performed By: #### 2 4344-4 ####[facility] LABORATORYCLIA [id number] [address] Calcium.ionized (BldV) [Mass/Vol] 1.20 mmol/L Normal 1.08-1.30 [facility] Comment on above: Order Comment: Speci men Type: VENOUS BLOOD SPECIMENOrdering Facility: [facility] Address: [address] [place] [address] Performed By: #### 2 4344-4 ####[facility] LABORATORYCLIA [id number] [address] Calcium.ionized adjusted to pH 7.4 (BldA) [Moles/Vol] 1.23 mmol/L Normal 1.08-1.30 [facility] Comment on above: Order Comment: Speci men Type: VENOUS BLOOD SPECIMENOrdering Facility: [facility] Address: [address] [place] [address] Performed By: #### 2 4344-4 ####[facility] LABORATORYCLIA [id number] [address] Carboxyhemoglobin (BldV) [Mass fraction] 1.5 % Normal 0.0-2.0 [facility] Comment on above: Order Comment: Speci men Type: VENOUS BLOOD SPECIMENOrdering Facility: [facility] Address: [address] [place] [address] Result Comment: Carb oxyhemoglobin Reference Range for Smokers: 2.0-8.0% Performed By: #### 2 4344-4 ####[facility] LABORATORYCLIA [id number] [address] OF [place] Chloride [Moles/Vol] 111 mmol/L High 97-105 [facility] Comment on above: Order Comment: Speci men Type: VENOUS BLOOD SPECIMENOrdering Facility: [facility] Address: [address] [place] [address] Performed By: #### 2 4344-4 ####[facility] GENERAL LABORATORYCLIA [id number] [address] [place] CO2 (BldV) [Partial pressure] 32 mm[Hg] Low 42-55 [facility] Comment on above: Order Comment: Speci men Type: VENOUS BLOOD SPECIMENOrdering Facility: [facility] Address: [address] [place] [address] Performed By: #### 2 4344-4 ####[facility] LABORATORYCLIA [id number] [address] [place] CO2 adjusted to patient's actual temperature (BldV) [Partial pressure] 33 mmHg Low 42-55 [facility] Comment on above: Order Comment: Speci men Type: VENOUS BLOOD SPECIMENOrdering Facility: [facility] Address: [address] [place] [address] Performed By: #### 2 4344-4 ####[facility] LABORATORYCLIA [id number] [address] [place] FIO2 35 % Normal [facility] Comment on above: Order Comment: Speci men Type: VENOUS BLOOD SPECIMENOrdering Facility: [facility] Address: [address] [place] [address] Performed By: #### 2 4344-4 ####[facility] LABORATORYCLIA [id number] [address] [place] Glucose [Mass/Vol] 188 mg/dL High 60-105 [facility] Comment on above: Order Comment: Speci men Type: VENOUS BLOOD SPECIMENOrdering Facility: [facility] Address: [address] [place] [address] Performed By: #### 2 4344-4 ####[facility] LABORATORYCLIA [id number] [place] [address] [place] HCO3 (Bld) [Moles/Vol] 22 mmol/L Low 24-28 [facility] Comment on above: Order Comment: Speci men Type: VENOUS BLOOD SPECIMENOrdering Facility: [facility] Address: [address] [place] [address] Performed By: #### 2 4344-4 ####[facility] LABORATORYCLIA [id number] [address] [place] Hematocrit (Bld) [Volume fraction] 25.7 % Low 39.0-51.0 [facility] Comment on above: Order Comment: Speci men Type: VENOUS BLOOD SPECIMENOrdering Facility: [facility] Address: [address] [place] [address] Performed By: #### 2 4344-4 ####[facility] LABORATORYCLIA [id number] [address] [place] Hemoglobin (Bld) [Mass/Vol] 8.3 g/dL Low 13.0-17.0 [facility] Comment on above: Order Comment: Speci men Type: VENOUS BLOOD SPECIMENOrdering Facility: [facility] Address: [address] [place] [address] Performed By: #### 2 4344-4 ####[facility] LABORATORYCLIA [id number] [address] [place] INHALED TIDAL VOLUME (ML) 450 Normal [facility] Comment on above: Order Comment: Speci men Type: VENOUS BLOOD SPECIMENOrdering Facility: [facility] Address: [address] [place] [address] Performed By: #### 2 4344-4 ####[facility] LABORATORYCLIA [id number] [address] [place] INVASIVE VENTILATOR MODE A/C PRVC or VC+ or APVcmv (PC-CMVa) Normal [facility] Comment on above: Order Comment: Speci men Type: VENOUS BLOOD SPECIMENOrdering Facility: [facility] Address: [address] [place] [address] Performed By: #### 2 4344-4 ####[facility] LABORATORYCLIA [id number] [address] [place] Lactate [Moles/Vol] 0.8 mmol/L Normal 0.5-2.2 [facility] Comment on above: Order Comment: Speci men Type: VENOUS BLOOD SPECIMENOrdering Facility: [facility] Address: [address] [place] [address] Performed By: #### 2 4344-4 ####[facility] LABORATORYCLIA [id number] [address] [place] Methemoglobin (Bld) [Mass fraction] 1.2 % Normal 0.0-1.5 [facility] Comment on above: Order Comment: Speci men Type: VENOUS BLOOD SPECIMENOrdering Facility: [facility] Address: [address] [place] [address] Performed By: #### 2 4344-4 ####[facility] LABORATORYCLIA [id number] [address] [place] O2 THERAPY VENT=Ventilator Normal [facility] Comment on above: Order Comment: Speci men Type: VENOUS BLOOD SPECIMENOrdering Facility: [facility] Address: [address] [place] [address] Performed By: #### 2 4344-4 ####[facility] LABORATORYCLIA [id number] [address] [place] Oxygen (BldV) [Partial pressure] 47 mm[Hg] High 35-45 [facility] Comment on above: Order Comment: Speci men Type: VENOUS BLOOD SPECIMENOrdering Facility: [facility] Address: [address] [place] [address] [place] [address] Performed By: #### 2 4344-4 ####[facility] LABORATORYCLIA [id number] [place] [address] [place] Oxygen adjusted to patient's actual temperature (BldV) [Partial pressure] 47 mmHg High 35-45 [facility] Comment on above: Order Comment: Speci men Type: VENOUS BLOOD SPECIMENOrdering Facility: [facility] Address: [address] [place] [address] Performed By: #### 2 4344-4 ####[facility] LABORATORYCLIA [id number] [address] [place] Oxygen saturation in Venous blood 83 % Normal 60-85 [facility] Comment on above: Order Comment: Speci men Type: VENOUS BLOOD SPECIMENOrdering Facility: [facility] Address: [address] [place] [address] Performed By: #### 2 4344-4 ####[facility] GENERAL LABORATORYCLIA [id number] [address] [place] Oxyhemoglobin (BldV) [Mass fraction] 81 % Normal 60-85 [facility] Comment on above: Order Comment: Speci men Type: VENOUS BLOOD SPECIMENOrdering Facility: [facility] Address: [address] [place] [address] Performed By: #### 2 4344-4 ####[facility] LABORATORYCLIA [id number] [place] [id number] [place] PEEP/CPAP 5 cmH2O Normal [facility] Comment on above: Order Comment: Speci men Type: VENOUS BLOOD SPECIMENOrdering Facility: [facility] Address: [address] [place] [address] Performed By: #### 2 4344-4 ####[facility] LABORATORYCLIA [id number] [place] [id number] [place] pH (BldV) 7.44 [pH] High 7.32-7.42 [facility] Comment on above: Order Comment: Speci men Type: VENOUS BLOOD SPECIMENOrdering Facility: [facility] Address: [address] [place] [address] Performed By: #### 2 4344-4 ####[facility] LABORATORYCLIA [id number] [address] pH adjusted to patient's actual temperature (BldV) 7.44 High 7.32-7.42 [facility] Comment on above: Order Comment: Speci men Type: VENOUS BLOOD SPECIMENOrdering Facility: [facility] Address: [address] [place] [address] Performed By: #### 2 4344-4 ####[facility] GENERAL LABORATORYCLIA [id number] [address] [place] Potassium [Moles/Vol] 3.5 mmol/L Normal 3.5-5.0 [facility] Comment on above: Order Comment: Speci men Type: VENOUS BLOOD SPECIMENOrdering Facility: [facility] Address: [address] [place] [address] Performed By: #### 2 4344-4 ####[facility] LABORATORYCLIA [id number] [address] SET VENTILATOR RESPIRATORY RATE (BPM) 20 BPM Normal [facility] Comment on above: Order Comment: Speci men Type: VENOUS BLOOD SPECIMENOrdering Facility: [facility] Address: [address] [place] [address] Performed By: #### 2 4344-4 ####[facility] LABORATORYCLIA [id number] [address] [place] Sodium [Moles/Vol] 144 mmol/L Normal 136-144 [facility] Comment on above: Order Comment: Speci men Type: VENOUS BLOOD SPECIMENOrdering Facility: [facility] Address: [address] [place] [address] Performed By: #### 2 4344-4 ####[facility] LABORATORYCLIA [id number] [address] [place] Hgb Bld-mCncon 04-19-2025 Hemoglobin (Bld) [Mass/Vol] 7.8 g/dL Low 13.0-17.0 [facility] Comment on above: Order Comment: Speci men Type: BLOOD SPECIMENOrdering Facility: [facility] Address: [address] [place] [address] Performed By: #### 7 18-7 ####[facility] LABORATORYCLIA [id number] [address] [place] Hemoglobin (Bld) [Mass/Vol] 7.8 g/dL Low 13.0-17.0 [facility] Comment on above: Order Comment: Speci men Type: BLOOD SPECIMENOrdering Facility: [facility] Address: [address] [place] [address] Performed By: #### 7 18-7 ####[facility] LABORATORYCLIA [id number] [address] [place] Phosphate [facility]Pl[facility] 04-19 Phosphate [Mass/Vol] 2.8 mg/dL Normal 2.7-4.8 [facility] Comment on above: Order Comment: Speci men Type: BLOOD SPECIMENOrdering Facility: [facility] Address: [address] [place] [address] Performed By: #### 2 777-1, 1751-7, 10516-4 ####[facility] LABORATORYCLIA [id number] [address] [place] THERAPY NTon 04-19-2025 THERAPY NT Normal [facility] Albumin [facility] 025 Albumin [Mass/Vol] 2.6 g/dL Low 3.9-4.9 [facility] Comment on above: Order Comment: Speci men Type: BLOOD SPECIMENOrdering Facility: [facility] Address: [address] [place] [address] Performed By: #### 1 751-7, 83399-0, 2777-1, 10788-4 ####[facility] LABORATORYCLIA [id number] [place] [address] [place] Basic metabolic 2000 panelon 04-18-2025 Anion gap [Moles/Vol] 12 mmol/L Normal 8-15 [facility] Comment on above: Order Comment: Speci men Type: BLOOD SPECIMENOrdering Facility: [facility] Address: [address] [place] [address] Performed By: #### 1 751-7, , 2776-09, 48358-2 ####[facility] LABORATORYCLIA [id number] [place] [id number] [place] Calcium [Mass/Vol] 7.9 mg/dL Low 8.5-10.2 [facility] Comment on above: Order Comment: Speci men Type: BLOOD SPECIMENOrdering Facility: [facility] Address: [address] [place] [address] Performed By: #### 1 751-7, , 2776-09, 72025-7 ####[facility] LABORATORYCLIA [id number] [place] [address] [place] Chloride [Moles/Vol] 106 mmol/L Normal 98-107 [facility] Comment on above: Order Comment: Speci men Type: BLOOD SPECIMENOrdering Facility: [facility] Address: [address] [place] [address] Performed By: #### 1 751-7, , 2776-09, 84559-8 ####[facility] LABORATORYCLIA [id number] [place] [address] [place] CO2 [Moles/Vol] 23 mmol/L Normal 22-30 [facility] Comment on above: Order Comment: Speci men Type: BLOOD SPECIMENOrdering Facility: [facility] Address: [address] [place] [address] Performed By: #### 1 751-7, , 2776-09, 37001-3 ####[facility] LABORATORYCLIA [id number] [place] [address] [place] Creatinine [Mass/Vol] 1.07 mg/dL Normal 0.73-1.22 [facility] Comment on above: Order Comment: Speci men Type: BLOOD SPECIMENOrdering Facility: [facility] Address: [address] [place] [address] Performed By: #### 1 751-7, 68502-8, 2777-1, 70663-2 ####[facility]PITALCLIA [id number] [place] [id number] [place] eGFRcr SerPlBld CKD-EPI 2020 73 mL/min/1.73m??? Normal >=60 [facility] Comment on above: Order Comment: Jose Cruz johnson Type: BLOOD SPECIMENOrdering Facility: [facility] Address: [address] [place] [address] Result Comment: Mary Kay mated Glomerular Filtration Rate (eGFR) is calculated using the 2020 CKD-EPI creatinine equation. This equation utilizes serum creatinine, sex, and age as parameters. The creatinine assay has traceable calibration to isotope dilution-mass spectrometry. Refer to KDIGO guidelines for clinical interpretation. In patients with unstable renal function, e.g. those with acute kidney injury, the eGFR may not accurately reflect actual GFR. Performed By: #### 1 751-7, 19797-2, 2777-1, 43199-3 ####[facility] LABORATORYCLIA [id number] [place] [address] [place] Glucose [Mass/Vol] 196 mg/dL High 74-99 [facility] Comment on above: Order Comment: Jose Cruz johnson Type: BLOOD SPECIMENOrdering Facility: [facility] Address: [address] [place] [address] Result Comment: The [place] [employer] (ADA) provides guidance for cutoff values for fasting glucose and random glucose. The ADA defines fasting as no caloric intake for at least 8 hours. Fasting plasma glucose results between 100 to 125 mg/dL indicate increased risk for diabetes (prediabetes).Fasting plasma glucose results greater than or equal to 126 mg/dL meet the criteria for diagnosis of diabetes. In the absence of unequivocal hyperglycemia, results should be confirmed by repeat testing. In a patient with classic symptoms of hyperglycemia or hyperglycemic crisis, random plasma glucose results greater than or equal to 200 mg/dL meet the criteria for diagnosis of diabetes.Reference: Standards of Medical Care in Diabetes 2016, [place] [employer] Association. Diabetes Care. 2016.39(Suppl 1). Performed By: #### 1 751-7, 51287-1, 2777-1, 05757-3 ####[facility] LABORATORYCLIA [id number] [place] [address] [place] Potassium [Moles/Vol] 3.2 mmol/L Low 3.7-5.1 [facility] Comment on above: Order Comment: Speci men Type: BLOOD SPECIMENOrdering Facility: [facility] Address: [address] [place] [address] Performed By: #### 1 751-7, 13291-5, 2777-1, 58411-0 ####[facility] LABORATORYCLIA [id number] [place] [id number] [place] Sodium [Moles/Vol] 141 mmol/L Normal 136-144 [facility] Comment on above: Order Comment: Speci men Type: BLOOD SPECIMENOrdering Facility: [facility] Address: [address] [place] [address] Performed By: #### 1 751-7, 55281-9, 2777-, 54696-7 ####[facility] LABORATORYCLIA [id number] [address] [place] Urea nitrogen [Mass/Vol] 23 mg/dL Normal 9-24 [facility] Comment on above: Order Comment: Speci men Type: BLOOD SPECIMENOrdering Facility: [facility] Address: [address] [place] [address] Performed By: #### 1 751-7, 00111-5, 2777-, 86023-1 ####[facility] LABORATORYCLIA [id number] [place] [address] [place] CASE MANAGEMon 04-18-2025 CASE MANAGEM Normal [facility] CBC panel Auto (Bld)on 04-18 Erythrocyte distribution width (RBC) [Ratio] 15.0 % Normal 11.5-15.0 [facility] Comment on above: Order Comment: Speci men Type: BLOOD SPECIMENOrdering Facility: [facility] Address: [address] [place] [address] Performed By: #### 5 8410-2 ####[facility] LABORATORYCLIA [id number] [address] Hematocrit (Bld) [Volume fraction] 22.5 % Low 39.0-51.0 [facility] Comment on above: Order Comment: Speci men Type: BLOOD SPECIMENOrdering Facility: [facility] Address: [address] [place] [address] Performed By: #### 5 8410-2 ####[facility] LABORATORYCLIA [id number] [address] STATES OF [facility] Hemoglobin (Bld) [Mass/Vol] 7.0 g/dL Low 13.0-17.0 [facility] Comment on above: Order Comment: Speci men Type: BLOOD SPECIMENOrdering Facility: [facility] Address: [address] [place] [address] Performed By: #### 5 8410-2 ####[facility] LABORATORYCLIA [id number] [address] STATES [facility] MCH (RBC) [Entitic mass] 27.1 pg Normal 26.0-34.0 [facility] Comment on above: Order Comment: Speci men Type: BLOOD SPECIMENOrdering Facility: [facility] Address: [address] [place] [address] Performed By: #### 5 8410-2 ####[facility] LABORATORYCLIA [id number] [address] [place] MCHC (RBC) [Mass/Vol] 31.1 g/dL Normal 30.5-36.0 [facility] Comment on above: Order Comment: Speci men Type: BLOOD SPECIMENOrdering Facility: [facility] Address: [address] [place] [address] Performed By: #### 5 8410-2 ####[facility] LABORATORYCLIA [id number] [address] [place] MCV (RBC) [Entitic vol] 87.2 fL Normal 80.0-100.0 [facility] Comment on above: Order Comment: Speci men Type: BLOOD SPECIMENOrdering Facility: [facility] Address: [address] [place] [address] Performed By: #### 5 8410-2 ####[facility] LABORATORYCLIA [id number] [address] [place] Nucleated RBC (Bld) [#/Vol] 10*3/uL Normal <0.01 [facility] Comment on above: Order Comment: Speci men Type: BLOOD SPECIMENOrdering Facility: [facility] Address: [address] [place] [address] Performed By: #### 5 8410-2 ####[facility] LABORATORYCLIA [id number] [place] [address] [place] Platelet mean volume (Bld) [Entitic vol] 10.4 fL Normal 9.0-12.7 [facility] Comment on above: Order Comment: Speci men Type: BLOOD SPECIMENOrdering Facility: [facility] Address: [address] [place] [address] Performed By: #### 5 8410-2 ####[facility] LABORATORYCLIA [id number] [place] [address] [place] Platelets (Bld) [#/Vol] 287 10*3/uL Normal 150-400 [facility] Comment on above: Order Comment: Speci men Type: BLOOD SPECIMENOrdering Facility: [facility] Address: [address] [place] [address] Performed By: #### 5 8410-2 ####[facility] LABORATORYCLIA [id number] [address] [place] RBC (Bld) [#/Vol] 2.58 10*6/uL Low 4.20-6.00 [facility] Comment on above: Order Comment: Speci men Type: BLOOD SPECIMENOrdering Facility: [facility] Address: [address] [place] [address] Performed By: #### 5 8410-2 ####[facility] LABORATORYCLIA [id number] [place] [address] [place] WBC (Bld) [#/Vol] 11.83 10*3/uL High 3.70-11.00 [facility] Comment on above: Order Comment: Speci men Type: BLOOD SPECIMENOrdering Facility: [facility] Address: [address] [place] [address] Performed By: #### 5 8410-2 ####[facility] LABORATORYCLIA [id number] [place] [address] [place] CONSULT PROGon 04-18-2025 CONSULT PROG Normal [facility] ECG COMPLETEon 04-18-2025 ECG COMPLETE Normal [facility] Hgb Bld-ncon 04-18-2025 Hemoglobin (Bld) [Mass/Vol] 7.5 g/dL Low 13.0-17.0 [facility] Comment on above: Order Comment: Speci men Type: BLOOD SPECIMENOrdering Facility: [facility] Address: [address] [place] [address] Performed By: #### 7 18-7 ####[facility] LABORATORYCLIA [id number] [place] [address] [place] Hemoglobin (Bld) [Mass/Vol] 6.9 g/dL Low 13.0-17.0 [facility] Center Comment on above: Order Comment: Speci men Type: BLOOD SPECIMENOrdering Facility: [facility] Address: [address] [place] [address] Performed By: #### 7 18-7 ####[facility] LABORATORYCLIA [id number] [place] [address] [place] Magnesium SerPl-[facility]18 Magnesium [Mass/Vol] 1.8 mg/dL Normal 1.7-2.3 [facility] Comment on above: Order Comment: Speci men Type: BLOOD SPECIMENOrdering Facility: [facility] Address: [address] [place] [address] Performed By: #### 1 751-7, 07771-6, 2777-1, 72256-5 ####[facility] LABORATORYCLIA [id number] [place] [address] [place] POTASSIUMon 04-18-2025 Potassium [Moles/Vol] 3.7 mmol/L Normal 3.7-5.1 [facility] Comment on above: Order Comment: Speci men Type: BLOOD SPECIMENOrdering Facility: [facility] Address: [address] [place] [address] Performed By: #### K 1 ####[facility] LABORATORYCLIA [id number] [place] [address] [place] Phosphate SerPl-mCncon 04-18 Phosphate [Mass/Vol] 3.2 mg/dL Normal 2.7-4.8 [facility] Comment on above: Order Comment: Speci men Type: BLOOD SPECIMENOrdering Facility: [facility] Address: [address] [place] [address] Performed By: #### 1 751-7, 33010-0, 2777-1, 34456-4 ####[facility] LABORATORYCLIA [id number] [place] [address] [place] THERAPY NTon 04-18-2025 THERAPY NT Normal [facility] TYPE + SCREENon 04-18-2025 ABO O Normal [facility] Comment on above: Order Comment: Speci men Type: BLOOD SPECIMENOrdering Facility: [facility] Address: [address] [place] [address] Performed By: #### T SCR ####[facility] BLOOD BANKCLIA [id number] [place] [address] [place] Rh Nom (Bld) Positive Normal [facility] Comment on above: Order Comment: Speci men Type: BLOOD SPECIMENOrdering Facility: [facility] Address: [address] [place] [address] Performed By: #### T SCR ####[facility] BLOOD BANKCLIA [id number] [place] [address] [place] TYPE AND SCREEN EXPIRATION 04/21/2025 23:59 Normal [facility] Comment on above: Order Comment: Speci men Type: BLOOD SPECIMENOrdering Facility: [facility] Address: [address] [place] [address] Performed By: #### T SCR ####[facility] BLOOD BANKCLIA [id number] [place] [address] [place] XR CHEST 1V FRONTALon 2024 XR CHEST 1V FRONTAL Normal [facility] ALLIED HEALTHon 04-17-2025 ALLIED HEALTH Normal [facility] CBC panel Auto (Bld)on 04-17 Erythrocyte distribution width (RBC) [Ratio] 14.5 % Normal 11.5-15.0 [facility] Comment on above: Order Comment: Speci men Type: BLOOD SPECIMENOrdering Facility: [facility] Address: [address] [place] [address] Performed By: #### 5 8410-2 ####[facility] LABORATORYCLIA [id number] [address] [place] Hematocrit (Bld) [Volume fraction] 27.7 % Low 39.0-51.0 [facility] Comment on above: Order Comment: Speci men Type: BLOOD SPECIMENOrdering Facility: [facility] Address: [address] [place] [address] Performed By: #### 5 8410-2 ####[facility] LABORATORYCLIA [id number] [address] [place] Hemoglobin (Bld) [Mass/Vol] 8.4 g/dL Low 13.0-17.0 [facility] Comment on above: Order Comment: Speci men Type: BLOOD SPECIMENOrdering Facility: [facility] Address: [address] [place] [address] Performed By: #### 5 8410-2 ####[facility] LABORATORYCLIA [id number] [place] [address] [place] MCH (RBC) [Entitic mass] 25.8 pg Low 26.0-34.0 [facility] Comment on above: Order Comment: Speci men Type: BLOOD SPECIMENOrdering Facility: [facility] Address: [address] [place] [address] Performed By: #### 5 8410-2 ####[facility] LABORATORYCLIA [id number] [address] STATES [facility] MCHC (RBC) [Mass/Vol] 30.3 g/dL Low 30.5-36.0 [facility] Comment on above: Order Comment: Speci men Type: BLOOD SPECIMENOrdering Facility: [facility] Address: [address] [place] [address] Performed By: #### 5 8410-2 ####[facility] LABORATORYCLIA [id number] [address] [place] MCV (RBC) [Entitic vol] 85.2 fL Normal 80.0-100.0 [facility] Comment on above: Order Comment: Speci men Type: BLOOD SPECIMENOrdering Facility: [facility] Address: [address] [place] [address] Performed By: #### 5 8410-2 ####[facility] LABORATORYCLIA [id number] [address] [place] Nucleated RBC (Bld) [#/Vol] 10*3/uL Normal <0.01 [facility] Comment on above: Order Comment: Speci men Type: BLOOD SPECIMENOrdering Facility: [facility] Address: [address] [place] [address] Performed By: #### 5 8410-2 ####[facility] LABORATORYCLIA [id number] [address] [place] Platelet mean volume (Bld) [Entitic vol] 10.7 fL Normal 9.0-12.7 [facility] Comment on above: Order Comment: Speci men Type: BLOOD SPECIMENOrdering Facility: [facility] Address: [address] [place] [address] Performed By: #### 5 8410-2 ####[facility] LABORATORYCLIA [id number] [place] [address] [place] Platelets (Bld) [#/Vol] 319 10*3/uL Normal 150-400 [facility] Comment on above: Order Comment: Speci men Type: BLOOD SPECIMENOrdering Facility: [facility] Address: [address] [place] [address] Performed By: #### 5 8410-2 ####[facility] LABORATORYCLIA [id number] [address] STATES OF [facility] RBC (Bld) [#/Vol] 3.25 10*6/uL Low 4.20-6.00 [facility] Comment on above: Order Comment: Speci men Type: BLOOD SPECIMENOrdering Facility: [facility] Address: [address] [place] [address] Performed By: #### 5 8410-2 ####[facility] LABORATORYCLIA [id number] [address] WBC (Bld) [#/Vol] 13.04 10*3/uL High 3.70-11.00 [facility] Comment on above: Order Comment: Speci men Type: BLOOD SPECIMENOrdering Facility: [facility] Address: [address] [place] [address] Performed By: #### 5 8410-2 ####[facility] LABORATORYCLIA [id number] [address] ABD/PEL W IVCONon 025 CT ABD/PEL W IVCON Normal [facility] CT BRAIN WO IVCONon 04-17-[address] BRAIN WO IVCON Normal [facility] ECG COMPLETEon 04-17-2025 ECG COMPLETE Normal [facility] Hgb Bld-mCncon 04-17-2025 Hemoglobin (Bld) [Mass/Vol] 7.2 g/dL Low 13.0-17.0 [facility] Comment on above: Order Comment: Speci men Type: BLOOD SPECIMENOrdering Facility: [facility] Address: [address] [place] [address] Performed By: #### 7 18-7 ####[facility] LABORATORYCLIA [id number] [address] OF [facility] NURSING PROGon 04-17-2025 NURSING PROG Normal [facility] Procalcitonin SerPl-mCncon 0 04-17-2025 Procalcitonin [Mass/Vol] 0.08 ng/mL Normal <0.09 [facility] Comment on above: Order Comment: Speci men Type: BLOOD SPECIMENOrdering Facility: [facility] Address: [address] [place] [address] Result Comment: For a guided interpretation of test results, please visit the Change in Procalcitonin Calculator, [email or web address]. Performed By: #### 3 3959-8, 93453-1, 257-8 ####[facility] LABORATORYCLIA [id number] [address] Renal function 2000 panelon 04-17-2025 Albumin [Mass/Vol] 2.8 g/dL Low 3.9-4.9 [facility] Comment on above: Order Comment: Speci men Type: BLOOD SPECIMENOrdering Facility: [facility] Address: [address] [place] [address] Performed By: #### 3 3959-8, 27704-7, 257-8 ####[facility] LABORATORYCLIA [id number] [address] STATES OF [facility] Anion gap [Moles/Vol] 12 mmol/L Normal 8-15 [facility] Comment on above: Order Comment: Speci men Type: BLOOD SPECIMENOrdering Facility: [facility] Address: [address] [place] [address] Performed By: #### 3 3959-8, 86259-0, 257-8 ####[facility] LABORATORYCLIA [id number] [place] [address] [place] Calcium [Mass/Vol] 8.2 mg/dL Low 8.5-10.2 [facility] Comment on above: Order Comment: Speci men Type: BLOOD SPECIMENOrdering Facility: [facility] Address: [address] [place] [address] Performed By: #### 3 3959-8, 98557-4, 2571-8 ####[facility] LABORATORYCLIA [id number] [place] [address] [place] Chloride [Moles/Vol] 104 mmol/L Normal 98-107 [facility] Comment on above: Order Comment: Speci men Type: BLOOD SPECIMENOrdering Facility: [facility] Address: [address] [place] [address] Performed By: #### 3 3959-8, 37406-6, 257-8 ####[facility] LABORATORYCLIA [id number] [place] [id number] [place] CO2 [Moles/Vol] 22 mmol/L Normal 22-30 [facility] Comment on above: Order Comment: Speci men Type: BLOOD SPECIMENOrdering Facility: [facility] Address: [address] [place] [address] Performed By: #### 3 3959-8, 02146-8, 2578 ####[facility] LABORATORYCLIA [id number] [place] [address] [place] Creatinine [Mass/Vol] 1.06 mg/dL Normal 0.73-1.22 [facility] Comment on above: Order Comment: Speci men Type: BLOOD SPECIMENOrdering Facility: [facility] Address: [address] [place] [address] Performed By: #### 3 3959-8, 18321-1, 257-8 ####[facility] LABORATORYCLIA [id number] [place] [address] [place] eGFRcr SerPlBld CKD-EPI 2020 74 mL/min/1.73m??? Normal >=60 [facility] Comment on above: Order Comment: Speci men Type: BLOOD SPECIMENOrdering Facility: [facility] Address: [address] [place] [address] Result Comment: Mary Kay mated Glomerular Filtration Rate (eGFR) is calculated using the 2020 CKD-EPI creatinine equation. This equation utilizes serum creatinine, sex, and age as parameters. The creatinine assay has traceable calibration to isotope dilution-mass spectrometry. Refer to KDIGO guidelines for clinical interpretation. In patients with unstable renal function, e.g. those with acute kidney injury, the eGFR may not accurately reflect actual GFR. Performed By: #### 3 3959-8, 27761-8, 8 ####[facility] LABORATORYCLIA [id number] [place] [address] [place] Glucose [Mass/Vol] 166 mg/dL High 74-99 [facility] Comment on above: Order Comment: Jose Cruz men Type: BLOOD SPECIMENOrdering Facility: [facility] Address: [address] [place] [address] Result Comment: The [place] Diabetes Association (ADA) provides guidance for cutoff values for fasting glucose and random glucose. The ADA defines fasting as no caloric intake for at least 8 hours. Fasting plasma glucose results between 100 to 125 mg/dL indicate increased risk for diabetes (prediabetes).Fasting plasma glucose results greater than or equal to 126 mg/dL meet the criteria for diagnosis of diabetes. In the absence of unequivocal hyperglycemia, results should be confirmed by repeat testing. In a patient with classic symptoms of hyperglycemia or hyperglycemic crisis, random plasma glucose results greater than or equal to 200 mg/dL meet the criteria for diagnosis of diabetes.Reference: Standards of Medical Care in Diabetes 2016, [place] [employer] Association. Diabetes Care. 2016.39(Suppl 1). Performed By: #### 3 3959-8, 94232-7, 8 ####[facility] LABORATORYCLIA [id number] [place] [address] [place] Phosphate [Mass/Vol] 3.1 mg/dL Normal 2.7-4.8 [facility] Comment on above: Order Comment: Jose Cruz johnson Type: BLOOD SPECIMENOrdering Facility: [facility] Address: [address] [place] [address] Performed By: #### 3 3959-8, 16109-4, 8 ####[facility] LABORATORYCLIA [id number] [place] [address] [place] Potassium [Moles/Vol] 3.8 mmol/L Normal 3.7-5.1 [facility] Comment on above: Order Comment: Jose Cruz johnson Type: BLOOD SPECIMENOrdering Facility: [facility] Address: [address] [place] [address] Performed By: #### 3 3959-8, 09699-9, 8 ####[facility] LABORATORYCLIA [id number] [address] [place] Sodium [Moles/Vol] 138 mmol/L Normal 136-144 [facility] Comment on above: Order Comment: Speci men Type: BLOOD SPECIMENOrdering Facility: [facility] Address: [address] [place] [address] Performed By: #### 3 3959-8, 31702-7, 8 ####[facility] LABORATORYCLIA [id number] [address] STATES OF [facility] Urea nitrogen [Mass/Vol] 22 mg/dL Normal 9-24 [facility] Comment on above: Order Comment: Speci men Type: BLOOD SPECIMENOrdering Facility: [facility] Address: [address] [place] [address] Performed By: #### 3 3959-8, 64272-1, 8 ####[facility] LABORATORYCLIA [id number] [address] [place] Trigl SerPl-mCncon 5 Triglyceride [Mass/Vol] 228 mg/dL High <150 [facility] Comment on above: Order Comment: Speci men Type: BLOOD SPECIMENOrdering Facility: [facility] Address: [address] [place] [address] Result Comment: <150 mg/dL, Normal 150-199 mg/dL, Borderline high 200-499 mg/dL, High>499 mg/dL, Very highReference:1. National Cholesterol Education Program ATP III Guideline At-A-Glance Quick Desk Reference: National Heart, Lung, and Blood Star. National Institutes of Health. 2001: NIH Publication No. 01-3305. Performed By: #### 3 3959-8, 85860-4, 257-8 ####[facility] LABORATORYCLIA [id number] [address] [place] Triglyceride [Mass/Vol]on FASTING TIME unknown Normal [facility] Comment on above: Order Comment: Speci men Type: BLOOD SPECIMENOrdering Facility: [facility] Address: [address] [place] [address] Performed By: #### 3 3959-8, 22662-7, 2571-8 ####[facility] LABORATORYCLIA [id number] [address] [place] XR ABDOMEN 1V SUPINEon 04-17 XR ABDOMEN 1V SUPINE Normal [facility] XR CHEST 1V FRONTALon 2024 XR CHEST 1V FRONTAL Normal [facility] aPTT PPPon 04-17-2025 aPTT Coag (PPP) [Time] s High 23.0-32.4 [facility] Comment on above: Order Comment: Speci men Type: BLOOD SPECIMENOrdering Facility: [facility] Address: [address] [place] [address] Performed By: #### 1 4979-9 ####[facility] LABORATORYCLIA [id number] [address] aPTT Coag (PPP) [Time] 45.8 s High 23.0-32.4 [facility] Comment on above: Order Comment: Speci men Type: BLOOD SPECIMENOrdering Facility: [facility] Address: [address] [place] [address] Performed By: #### 1 4979-9 ####[facility] LABORATORYCLIA [id number] [address] [place] CASE MANAGEMon 04-16-2025 CASE MANAGEM Normal [facility] CBC panel Auto (Bld)on 04-16 Erythrocyte distribution width (RBC) [Ratio] 14.6 % Normal 11.5-15.0 [facility] Comment on above: Order Comment: Speci men Type: BLOOD SPECIMENOrdering Facility: [facility] Address: [address] [place] [address] Performed By: #### 5 8410-2 ####[facility] LABORATORYCLIA [id number] [address] Hematocrit (Bld) [Volume fraction] 28.4 % Low 39.0-51.0 [facility] Comment on above: Order Comment: Speci men Type: BLOOD SPECIMENOrdering Facility: [facility] Address: [address] [place] [address] Performed By: #### 5 8410-2 ####[facility] LABORATORYCLIA [id number] [address] STATES OF [facility] Hemoglobin (Bld) [Mass/Vol] 8.8 g/dL Low 13.0-17.0 [facility] Comment on above: Order Comment: Speci men Type: BLOOD SPECIMENOrdering Facility: [facility] Address: [address] [place] [address] Performed By: #### 5 8410-2 ####[facility] LABORATORYCLIA [id number] [address] MCH (RBC) [Entitic mass] 27.1 pg Normal 26.0-34.0 [facility] Comment on above: Order Comment: Speci men Type: BLOOD SPECIMENOrdering Facility: [facility] Address: [address] [place] [address] Performed By: #### 5 8410-2 ####[facility] LABORATORYCLIA [id number] [address] [place] MCHC (RBC) [Mass/Vol] 31.0 g/dL Normal 30.5-36.0 [facility] Comment on above: Order Comment: Speci men Type: BLOOD SPECIMENOrdering Facility: [facility] Address: [address] [place] [address] Performed By: #### 5 8410-2 ####[facility] LABORATORYCLIA [id number] [address] MCV (RBC) [Entitic vol] 87.4 fL Normal 80.0-100.0 [facility] Comment on above: Order Comment: Speci men Type: BLOOD SPECIMENOrdering Facility: [facility] Address: [address] [place] [address] Performed By: #### 5 8410-2 ####[facility] LABORATORYCLIA [id number] [address] [place] Nucleated RBC (Bld) [#/Vol] 10*3/uL Normal <0.01 [facility] Comment on above: Order Comment: Speci men Type: BLOOD SPECIMENOrdering Facility: [facility] Address: [address] [place] [address] Performed By: #### 5 8410-2 ####[facility] LABORATORYCLIA [id number] [address] [place] Platelet mean volume (Bld) [Entitic vol] 10.5 fL Normal 9.0-12.7 [facility] Comment on above: Order Comment: Speci men Type: BLOOD SPECIMENOrdering Facility: [facility] Address: [address] [place] [address] Performed By: #### 5 8410-2 ####[facility] LABORATORYCLIA [id number] [address] [place] Platelets (Bld) [#/Vol] 267 10*3/uL Normal 150-400 [facility] Comment on above: Order Comment: Speci men Type: BLOOD SPECIMENOrdering Facility: [facility] Address: [address] [place] [address] Performed By: #### 5 8410-2 ####[facility] LABORATORYCLIA [id number] [place] [address] [place] RBC (Bld) [#/Vol] 3.25 10*6/uL Low 4.20-6.00 [facility] Comment on above: Order Comment: Speci men Type: BLOOD SPECIMENOrdering Facility: [facility] Address: [address] [place] [address] Performed By: #### 5 8410-2 ####[facility] LABORATORYCLIA [id number] [place] [address] [place] WBC (Bld) [#/Vol] 10.00 10*3/uL Normal 3.70-11.00 [facility] Comment on above: Order Comment: Speci men Type: BLOOD SPECIMENOrdering Facility: [facility] Address: [address] [place] [address] Performed By: #### 5 8410-2 ####[facility] LABORATORYCLIA [id number] [place] [address] [place] Magnesium SerPl-mCncon 04-16 Magnesium [Mass/Vol] 2.0 mg/dL Normal 1.7-2.3 [facility] Comment on above: Order Comment: Speci men Type: BLOOD SPECIMENOrdering Facility: [facility] Address: [address] [place] [address] Performed By: #### 1 9123-9, 16015-0 ####[facility] LABORATORYCLIA [id number] [place] [address] [place] NUTRITIONon 04-16-2025 NUTRITION Normal [facility] Renal function 2000 panelon 04-16-2025 Albumin [Mass/Vol] 2.7 g/dL Low 3.9-4.9 [facility] Comment on above: Order Comment: Speci men Type: BLOOD SPECIMENOrdering Facility: [facility] Address: [address] [place] [address] Performed By: #### 1 9123-9, 81434-8 ####[facility] LABORATORYCLIA [id number] [place] [address] [place] Anion gap [Moles/Vol] 13 mmol/L Normal 8-15 [facility] Comment on above: Order Comment: Speci men Type: BLOOD SPECIMENOrdering Facility: [facility] Address: [address] [place] [address] Performed By: #### 1 9123-9, 51744-0 ####[facility] LABORATORYCLIA [id number] [place] [address] [place] Calcium [Mass/Vol] 7.9 mg/dL Low 8.5-10.2 [facility] Comment on above: Order Comment: Speci men Type: BLOOD SPECIMENOrdering Facility: [facility] Address: [address] [place] [address] Performed By: #### 1 9123-9, 68366-2 ####[facility] LABORATORYCLIA [id number] [place] [id number] [place] Chloride [Moles/Vol] 105 mmol/L Normal 98-107 [facility] Comment on above: Order Comment: Speci men Type: BLOOD SPECIMENOrdering Facility: [facility] Address: [address] [place] [address] Performed By: #### 1 9123-9, 91427-8 ####[facility] LABORATORYCLIA [id number] [place] [id number] [place] CO2 [Moles/Vol] 22 mmol/L Normal 22-30 [facility] Comment on above: Order Comment: Speci men Type: BLOOD SPECIMENOrdering Facility: [facility] Address: [address] [place] [address] Performed By: #### 1 9123-9, 67698-9 ####[facility] LABORATORYCLIA [id number] [place] [address] [place] Creatinine [Mass/Vol] 0.98 mg/dL Normal 0.73-1.22 [facility] Comment on above: Order Comment: Speci men Type: BLOOD SPECIMENOrdering Facility: [facility] Address: [address] [place] [address] Performed By: #### 1 9123-9, 92930-4 ####[facility] LABORATORYCLIA [id number] [place] [address] [place] eGFRcr SerPlBld CKD-EPI 2020 81 mL/min/1.73m??? Normal >=60 [facility] Comment on above: Order Comment: Speci men Type: BLOOD SPECIMENOrdering Facility: [facility] Address: [address] [place] [address] Result Comment: Mary Kay mated Glomerular Filtration Rate (eGFR) is calculated using the 2020 CKD-EPI creatinine equation. This equation utilizes serum creatinine, sex, and age as parameters. The creatinine assay has traceable calibration to isotope dilution-mass spectrometry. Refer to KDIGO guidelines for clinical interpretation. In patients with unstable renal function, e.g. those with acute kidney injury, the eGFR may not accurately reflect actual GFR. Performed By: #### 1 9123-9, 55993-0 ####[facility] LABORATORYCLIA [id number] [place] [address] [place] Glucose [Mass/Vol] 185 mg/dL High 74-99 [facility] Comment on above: Order Comment: Jose Cruz johnson Type: BLOOD SPECIMENOrdering Facility: [facility] Address: [address] [place] [address] Result Comment: The [place] [employer] (ADA) provides guidance for cutoff values for fasting glucose and random glucose. The ADA defines fasting as no caloric intake for at least 8 hours. Fasting plasma glucose results between 100 to 125 mg/dL indicate increased risk for diabetes (prediabetes).Fasting plasma glucose results greater than or equal to 126 mg/dL meet the criteria for diagnosis of diabetes. In the absence of unequivocal hyperglycemia, results should be confirmed by repeat testing. In a patient with classic symptoms of hyperglycemia or hyperglycemic crisis, random plasma glucose results greater than or equal to 200 mg/dL meet the criteria for diagnosis of diabetes.Reference: Standards of Medical Care in Diabetes 2016, [place] [employer]. Diabetes Care. 2016.39(Suppl 1). Performed By: #### 1 9123-9, 71497-3 ####[facility] LABORATORYCLIA [id number] [place] [address] [place] Phosphate [Mass/Vol] 2.2 mg/dL Low 2.7-4.8 [facility] Comment on above: Order Comment: Jose Cruz johnson Type: BLOOD SPECIMENOrdering Facility: [facility] Address: [address] [place] [address] Performed By: #### 1 9123-9, 28585-0 ####[facility] LABORATORYCLIA [id number] [place] [address] [place] Potassium [Moles/Vol] 3.8 mmol/L Normal 3.7-5.1 [facility] Comment on above: Order Comment: Speci men Type: BLOOD SPECIMENOrdering Facility: [facility] Address: [address] [place] [address] Performed By: #### 1 9123-9, 65605-0 ####[facility] LABORATORYCLIA [id number] [place] [id number] [place] [facility] Sodium [Moles/Vol] 140 mmol/L Normal 136-144 [facility] Comment on above: Order Comment: Speci men Type: BLOOD SPECIMENOrdering Facility: [facility] Address: [address] [place] [address] Performed By: #### 1 9123-9, 74064-0 ####[facility] LABORATORYCLIA [id number] [address] [place] Urea nitrogen [Mass/Vol] 24 mg/dL Normal 9-24 [facility] Comment on above: Order Comment: Speci men Type: BLOOD SPECIMENOrdering Facility: [facility] Address: [address] [place] [address] Performed By: #### 1 9123-9, 50999-8 ####[facility] LABORATORYCLIA [id number] [address] [place] aPTT PPPon 04-16-2025 aPTT Coag (PPP) [Time] 41.4 s High 23.0-32.4 [facility] Comment on above: Order Comment: Speci men Type: BLOOD SPECIMENOrdering Facility: [facility] Address: [address] [place] [address] Performed By: #### 1 4979-9 ####[facility] LABORATORYCLIA [id number] [address] [place] aPTT Coag (PPP) [Time] 41.1 s High 23.0-32.4 [facility] Comment on above: Order Comment: Speci men Type: BLOOD SPECIMENOrdering Facility: [facility] Address: [address] [place] [address] Performed By: #### 1 4979-9 ####[facility]ORATORYCLIA [id number] [place] [address] aPTT Coag (PPP) [Time] 27.6 s Normal 23.0-32.4 [facility] Comment on above: Order Comment: Speci men Type: BLOOD SPECIMENOrdering Facility: [facility] Address: [address] [place] [address] Performed By: #### 1 4979-9 ####[facility] LABORATORYCLIA [id number] [address] CBC panel Auto (Bld)on 04-15 Erythrocyte distribution width (RBC) [Ratio] 15.0 % Normal 11.5-15.0 [facility] Comment on above: Order Comment: Speci men Type: BLOOD SPECIMENOrdering Facility: [facility] Address: [address] [place] [address] Performed By: #### 5 8410-2 ####[facility] LABORATORYCLIA [id number] [address] STATES [facility] Hematocrit (Bld) [Volume fraction] 25.2 % Low 39.0-51.0 [facility] Comment on above: Order Comment: Speci men Type: BLOOD SPECIMENOrdering Facility: [facility] Address: [address] [place] [address] Performed By: #### 5 8410-2 ####[facility] LABORATORYCLIA [id number] [address] [place] Hemoglobin (Bld) [Mass/Vol] 7.9 g/dL Low 13.0-17.0 [facility] Comment on above: Order Comment: Speci men Type: BLOOD SPECIMENOrdering Facility: [facility] Address: [address] [place] [address] Performed By: #### 5 8410-2 ####[facility] LABORATORYCLIA [id number] [address] MCH (RBC) [Entitic mass] 26.7 pg Normal 26.0-34.0 [facility] Comment on above: Order Comment: Speci men Type: BLOOD SPECIMENOrdering Facility: [facility] Address: [address] [place] [address] Performed By: #### 5 8410-2 ####[facility] LABORATORYCLIA [id number] [address] STATES [facility] MCHC (RBC) [Mass/Vol] 31.3 g/dL Normal 30.5-36.0 [facility] Comment on above: Order Comment: Speci men Type: BLOOD SPECIMENOrdering Facility: [facility] Address: [address] [place] [address] Performed By: #### 5 8410-2 ####[facility] LABORATORYCLIA [id number] [address] [place] MCV (RBC) [Entitic vol] 85.1 fL Normal 80.0-100.0 [facility] Comment on above: Order Comment: Speci men Type: BLOOD SPECIMENOrdering Facility: [facility] Address: [address] [place] [address] Performed By: #### 5 8410-2 ####[facility] LABORATORYCLIA [id number] [address] [place] Nucleated RBC (Bld) [#/Vol] 10*3/uL Normal <0.01 [facility] Comment on above: Order Comment: Speci men Type: BLOOD SPECIMENOrdering Facility: [facility] Address: [address] [place] [address] Performed By: #### 5 8410-2 ####[facility] LABORATORYCLIA [id number] [address] [place] Platelet mean volume (Bld) [Entitic vol] 10.2 fL Normal 9.0-12.7 [facility] Comment on above: Order Comment: Speci men Type: BLOOD SPECIMENOrdering Facility: [facility] Address: [address] [place] [address] Performed By: #### 5 8410-2 ####[facility] LABORATORYCLIA [id number] [place] [address] [place] Platelets (Bld) [#/Vol] 235 10*3/uL Normal 150-400 [facility] Comment on above: Order Comment: Speci men Type: BLOOD SPECIMENOrdering Facility: [facility] Address: [address] [place] [address] Performed By: #### 5 8410-2 ####[facility] LABORATORYCLIA [id number] [address] [place] RBC (Bld) [#/Vol] 2.96 10*6/uL Low 4.20-6.00 [facility] Comment on above: Order Comment: Speci men Type: BLOOD SPECIMENOrdering Facility: [facility] Address: [address] [place] [address] Performed By: #### 5 8410-2 ####[facility] LABORATORYCLIA [id number] [address] STATES OF [facility] WBC (Bld) [#/Vol] 9.70 10*3/uL Normal 3.70-11.00 [facility] Comment on above: Order Comment: Speci men Type: BLOOD SPECIMENOrdering Facility: [facility] Address: [address] [place] [address] Performed By: #### 5 8410-2 ####[facility] LABORATORYCLIA [id number] [address] [place] CONSULT PROGon 04-15-2025 CONSULT PROG Normal [facility] Magnesium SerPl-mCncon 04-15 Magnesium [Mass/Vol] 2.4 mg/dL High 1.7-2.3 [facility] Comment on above: Order Comment: Speci men Type: BLOOD SPECIMENOrdering Facility: [facility] Address: [address] [place] [address] Performed By: #### 2 4362-6, 14864-6 ####[facility] LABORATORYCLIA [id number] [address] [place] Renal function 2000 panelon 04-15-2025 Albumin [Mass/Vol] 2.6 g/dL Low 3.9-4.9 [facility] Comment on above: Order Comment: Speci men Type: BLOOD SPECIMENOrdering Facility: [facility] Address: [address] [place] [address] Performed By: #### 2 4362-6, ####[facility] LABORATORYCLIA [id number] [place] [address] [place] Anion gap [Moles/Vol] 14 mmol/L Normal 8-15 [facility] Comment on above: Order Comment: Speci men Type: BLOOD SPECIMENOrdering Facility: [facility] Address: [address] [place] [address] Performed By: #### 2 4362-6, ####[facility] LABORATORYCLIA [id number] [place] [address] [place] Calcium [Mass/Vol] 7.9 mg/dL Low 8.5-10.2 [facility] Comment on above: Order Comment: Speci men Type: BLOOD SPECIMENOrdering Facility: [facility] Address: [address] [place] [address] Performed By: #### 2 436-6, ####[facility] LABORATORYCLIA [id number] [place] [address] [place] Chloride [Moles/Vol] 104 mmol/L Normal 98-107 [facility] Comment on above: Order Comment: Speci men Type: BLOOD SPECIMENOrdering Facility: [facility] Address: [address] [place] [address] Performed By: #### 2 436-6, ####[facility] LABORATORYCLIA [id number] [place] [address] [place] CO2 [Moles/Vol] 22 mmol/L Normal 22-30 [facility] Comment on above: Order Comment: Speci men Type: BLOOD SPECIMENOrdering Facility: [facility] Address: [address] [place] [address] Performed By: #### 2 4362-6, ####[facility] GENER[facility] LABORATORYCLIA [id number] [place] [address] [place] Creatinine [Mass/Vol] 1.08 mg/dL Normal 0.73-1.22 [facility] Comment on above: Order Comment: Jose Cruz johnson Type: BLOOD SPECIMENOrdering Facility: [facility] Address: [address] [place] [address] Performed By: #### 2 4362-6, ####[facility] LABORATORYCLIA [id number] [place] [id number] [facility] [place] eGFRcr SerPlBld CKD-EPI 2020 72 mL/min/1.73m??? Normal >=60 [facility] Comment on above: Order Comment: Jose Cruz johnson Type: BLOOD SPECIMENOrdering Facility: [facility] Address: [address] [place] [address] Result Comment: Mary Kay mated Glomerular Filtration Rate (eGFR) is calculated using the 2020 CKD-EPI creatinine equation. This equation utilizes serum creatinine, sex, and age as parameters. The creatinine assay has traceable calibration to isotope dilution-mass spectrometry. Refer to KDIGO guidelines for clinical interpretation. In patients with unstable renal function, e.g. those with acute kidney injury, the eGFR may not accurately reflect actual GFR. Performed By: #### 2 4362-6, ####[facility] LABORATORYCLIA [id number] [place] [id number] [place] Glucose [Mass/Vol] 189 mg/dL High 74-99 [facility] Comment on above: Order Comment: Jose Cruz johnson Type: BLOOD SPECIMENOrdering Facility: [facility] Address: [address] [place] [address] Result Comment: The [place] Diabetes Association (ADA) provides guidance for cutoff values for fasting glucose and random glucose. The ADA defines fasting as no caloric intake for at least 8 hours. Fasting plasma glucose results between 100 to 125 mg/dL indicate increased risk for diabetes (prediabetes).Fasting plasma glucose results greater than or equal to 126 mg/dL meet the criteria for diagnosis of diabetes. In the absence of unequivocal hyperglycemia, results should be confirmed by repeat testing. In a patient with classic symptoms of hyperglycemia or hyperglycemic crisis, random plasma glucose results greater than or equal to 200 mg/dL meet the criteria for diagnosis of diabetes.Reference: Standards of Medical Care in Diabetes 2016, [place] [employer]. Diabetes Care. 2016.39(Suppl 1). Performed By: #### 2 4362-6, ####[facility] [facility] LABORATORYCLIA [id number] [place] [address] [place] Phosphate [Mass/Vol] 2.7 mg/dL Normal 2.7-4.8 [facility] Comment on above: Order Comment: Speci men Type: BLOOD SPECIMENOrdering Facility: [facility] Address: [address] [place] [address] Performed By: #### 2 4362-6, ####[facility] LABORATORYCLIA [id number] [address] [place] Potassium [Moles/Vol] 3.6 mmol/L Low 3.7-5.1 [facility] Comment on above: Order Comment: Speci men Type: BLOOD SPECIMENOrdering Facility: [facility] Address: [address] [place] [address] Performed By: #### 2 43610-26, ####[facility] LABORATORYCLIA [id number] [address] STATES OF [facility] Sodium [Moles/Vol] 140 mmol/L Normal 136-144 [facility] Comment on above: Order Comment: Speci men Type: BLOOD SPECIMENOrdering Facility: [facility] Address: [address] [place] [address] Performed By: #### 2 43610-26, ####[facility] LABORATORYCLIA [id number] [place] [id number] [place] Urea nitrogen [Mass/Vol] 25 mg/dL High 9-24 [facility] Comment on above: Order Comment: Speci men Type: BLOOD SPECIMENOrdering Facility: [facility] Address: [address] [place] [address] Performed By: #### 2 436-6, ####[facility] LABORATORYCLIA [id number] [place] [address] [place] XR CHEST 1V FRONTALon 2024 XR CHEST 1V FRONTAL Normal [facility] CBC panel Auto (Bld)on 04-14 Erythrocyte distribution width (RBC) [Ratio] 15.3 % High 11.5-15.0 [facility] Comment on above: Order Comment: Speci men Type: BLOOD SPECIMENOrdering Facility: [facility] Address: [address] [place] [address] Performed By: #### 5 8410-2 ####[facility] LABORATORYCLIA [id number] [address] Hematocrit (Bld) [Volume fraction] 24.0 % Low 39.0-51.0 [facility] Comment on above: Order Comment: Speci men Type: BLOOD SPECIMENOrdering Facility: [facility] Address: [address] [place] [address] Performed By: #### 5 8410-2 ####[facility] LABORATORYCLIA [id number] [address] Hemoglobin (Bld) [Mass/Vol] 7.3 g/dL Low 13.0-17.0 [facility] Comment on above: Order Comment: Speci men Type: BLOOD SPECIMENOrdering Facility: [facility] Address: [address] [place] [address] Performed By: #### 5 8410-2 ####[facility] LABORATORYCLIA [id number] [address] STATES [facility] MCH (RBC) [Entitic mass] 26.2 pg Normal 26.0-34.0 [facility] Comment on above: Order Comment: Speci men Type: BLOOD SPECIMENOrdering Facility: [facility] Address: [address] [place] [address] Performed By: #### 5 8410-2 ####[facility] LABORATORYCLIA [id number] [address] [place] MCHC (RBC) [Mass/Vol] 30.4 g/dL Low 30.5-36.0 [facility] Comment on above: Order Comment: Speci men Type: BLOOD SPECIMENOrdering Facility: [facility] Address: [address] [place] [address] Performed By: #### 5 8410-2 ####[facility] LABORATORYCLIA [id number] [address] MCV (RBC) [Entitic vol] 86.0 fL Normal 80.0-100.0 [facility] Comment on above: Order Comment: Speci men Type: BLOOD SPECIMENOrdering Facility: [facility] Address: [address] [place] [address] Performed By: #### 5 8410-2 ####[facility] LABORATORYCLIA [id number] [address] OF [facility] Nucleated RBC (Bld) [#/Vol] 10*3/uL Normal <0.01 [facility] Comment on above: Order Comment: Speci men Type: BLOOD SPECIMENOrdering Facility: [facility] Address: [address] [place] [address] Performed By: #### 5 8410-2 ####[facility] LABORATORYCLIA [id number] [address] Platelet mean volume (Bld) [Entitic vol] 10.6 fL Normal 9.0-12.7 [facility] Comment on above: Order Comment: Speci men Type: BLOOD SPECIMENOrdering Facility: [facility] Address: [address] [place] [address] Performed By: #### 5 8410-2 ####[facility] LABORATORYCLIA [id number] [address] STATES [facility] Platelets (Bld) [#/Vol] 195 10*3/uL Normal 150-400 [facility] Comment on above: Order Comment: Speci men Type: BLOOD SPECIMENOrdering Facility: [facility] Address: [address] [place] [address] Performed By: #### 5 8410-2 ####[facility] LABORATORYCLIA [id number] [address] [place] RBC (Bld) [#/Vol] 2.79 10*6/uL Low 4.20-6.00 [facility] Comment on above: Order Comment: Jose Cruz johnson Type: BLOOD SPECIMENOrdering Facility: [facility] Address: [address] [place] [address] Performed By: #### 5 8410-2 ####[facility] LABORATORYCLIA [id number] [address] WBC (Bld) [#/Vol] 9.61 10*3/uL Normal 3.70-11.00 [facility] Comment on above: Order Comment: Jose Cruz johnson Type: BLOOD SPECIMENOrdering Facility: [facility] Address: [address] [place] [address] Performed By: #### 5 8410-2 ####[facility] LABORATORYCLIA [id number] [address] CONSULT PROGon 04-14-2025 CONSULT PROG Normal [facility] PT panel Coag (PPP)on 2024 INR Coag (PPP) [Relative time] 1.0 {INR} Normal 0.9-1.3 [facility] Comment on above: Order Comment: Jose Cruz johnson Type: BLOOD SPECIMENOrdering Facility: [facility] Address: [address] [place] [address] Result Comment: Antionette min K Antagonist (VKA) Therapeutic Range: INR 2 to 3 (Target INR of 2.5)Note: For patients treated with VKA drugs, such as warfarin, the [place] [employer] 2012 Guideline recommends a therapeutic INR range of 2 to 3 (target INR of 2.5). This recommendation includes high-risk patients with antiphospholipid syndrome with previous arterial or venous thromboembolism, current-generation mechanical or bioprosthetic aortic heart valve replacement.Note: Patients with mechanical aortic valve replacement and additional risk factors for thromboembolic events (atrial fibrillation, previous thromboembolism, LV dysfunction, hypercoagulable conditions) or an older generation mechanical AVR (i.e., ball in-Cage) or any mechanical MVR should have a INR therapeutic range of 2.5 to 3.5 (target INR of 3).Guyatt GH, et al. Chest 2012, 141:7S-47SAngelica RA, et al. [facility] 2017, 70: 252-289 Performed By: #### 3 4528-0, 43447-3 ####[facility] LABORATORYCLIA [id number] [place] [address] [place] PT Coag (PPP) [Time] 10.7 s Normal 9.7-13.0 [facility] Comment on above: Order Comment: Speci men Type: BLOOD SPECIMENOrdering Facility: [facility] Address: [address] [place] [address] Performed By: #### 3 4528-0, 35181-7 ####[facility] LABORATORYCLIA [id number] [address] [place] Renal function 2000 panelon 04-14-2025 Albumin [Mass/Vol] 2.7 g/dL Low 3.9-4.9 [facility] Comment on above: Order Comment: Speci men Type: BLOOD SPECIMENOrdering Facility: [facility] Address: [address] [place] [address] Performed By: #### 2 4362-6 ####[facility] LABORATORYCLIA [id number] [address] [place] Anion gap [Moles/Vol] 18 mmol/L High 8-15 [facility] Comment on above: Order Comment: Speci men Type: BLOOD SPECIMENOrdering Facility: [facility] Address: [address] [place] [address] Performed By: #### 2 4362-6 ####[facility] LABORATORYCLIA [id number] [address] [place] Calcium [Mass/Vol] 8.4 mg/dL Low 8.5-10.2 [facility] Comment on above: Order Comment: Speci men Type: BLOOD SPECIMENOrdering Facility: [facility] Address: [address] [place] [address] Performed By: #### 2 4362-6 ####[facility] LABORATORYCLIA [id number] [address] [place] Chloride [Moles/Vol] 100 mmol/L Normal 98-107 [facility] Comment on above: Order Comment: Speci men Type: BLOOD SPECIMENOrdering Facility: [facility] Address: [address] [place] [address] Performed By: #### 2 4362-6 ####[facility] LABORATORYCLIA [id number] [place] [address] [place] CO2 [Moles/Vol] 21 mmol/L Low 22-30 [facility] Comment on above: Order Comment: Speci men Type: BLOOD SPECIMENOrdering Facility: [facility] Address: [address] [place] [address] Performed By: #### 2 4362-6 ####[facility]ITALCL[facility] [id number] [address] [place] Creatinine [Mass/Vol] 1.73 mg/dL High 0.73-1.22 [facility] Comment on above: Order Comment: Speci men Type: BLOOD SPECIMENOrdering Facility: [facility] Address: [address] [place] [address] Performed By: #### 2 4362-6 ####[facility] LABORATORYCLIA [id number] [address] eGFRcr SerPlBld CKD-EPI 2020 41 mL/min/1.73m??? Low >=60 [facility] Comment on above: Order Comment: Speci men Type: BLOOD SPECIMENOrdering Facility: [facility] Address: [address] [place] [address] Result Comment: Mary Kay mated Glomerular Filtration Rate (eGFR) is calculated using the 2020 CKD-EPI creatinine equation. This equation utilizes serum creatinine, sex, and age as parameters. The creatinine assay has traceable calibration to isotope dilution-mass spectrometry. Refer to KDIGO guidelines for clinical interpretation. In patients with unstable renal function, e.g. those with acute kidney injury, the eGFR may not accurately reflect actual GFR. Performed By: #### 2 4362-6 ####[facility] LABORATORYCLIA [id number] [place] [address] [place] Glucose [Mass/Vol] 133 mg/dL High 74-99 [facility] Comment on above: Order Comment: Jose Cruz johnson Type: BLOOD SPECIMENOrdering Facility: [facility] Address: [address] [place] [address] Result Comment: The [place] [employer] (ADA) provides guidance for cutoff values for fasting glucose and random glucose. The ADA defines fasting as no caloric intake for at least 8 hours. Fasting plasma glucose results between 100 to 125 mg/dL indicate increased risk for diabetes (prediabetes).Fasting plasma glucose results greater than or equal to 126 mg/dL meet the criteria for diagnosis of diabetes. In the absence of unequivocal hyperglycemia, results should be confirmed by repeat testing. In a patient with classic symptoms of hyperglycemia or hyperglycemic crisis, random plasma glucose results greater than or equal to 200 mg/dL meet the criteria for diagnosis of diabetes.Reference: Standards of Medical Care in Diabetes 2016, [place] [employer]. Diabetes Care. 2016.39(Suppl 1). Performed By: #### 2 4362-6 ####[facility] LABORATORYCLIA [id number] [place] [address] [place] Phosphate [Mass/Vol] 3.6 mg/dL Normal 2.7-4.8 [facility] Comment on above: Order Comment: Jose Cruz johnson Type: BLOOD SPECIMENOrdering Facility: [facility] Address: [address] [place] [address] Performed By: #### 2 4362-6 ####[facility] LABORATORYCLIA [id number] [place] [address] [place] Potassium [Moles/Vol] 3.6 mmol/L Low 3.7-5.1 [facility] Comment on above: Order Comment: Jose Cruz johnson Type: BLOOD SPECIMENOrdering Facility: [facility] Address: [address] [place] [address] Performed By: #### 2 4362-6 ####[facility] LABORATORYCLIA [id number] [place] [address] [place] Sodium [Moles/Vol] 139 mmol/L Normal 136-144 [facility] Comment on above: Order Comment: Speci men Type: BLOOD SPECIMENOrdering Facility: [facility] Address: [address] [place] [address] Performed By: #### 2 4362-6 ####[facility] LABORATORYCLIA [id number] [address] STATES OF [facility] Urea nitrogen [Mass/Vol] 24 mg/dL Normal 9-24 [facility] Comment on above: Order Comment: Speci men Type: BLOOD SPECIMENOrdering Facility: [facility] Address: [address] [place] [address] Performed By: #### 2 4362-6 ####[facility] LABORATORYCLIA [id number] [address] [place] XR ABDOMEN 1V SUPINEon 04-14 XR ABDOMEN 1V SUPINE Normal [facility] aPTT PPPon 04-14-2025 aPTT Coag (PPP) [Time] 54.4 s High 23.0-32.4 [facility] Comment on above: Order Comment: Speci men Type: BLOOD SPECIMENOrdering Facility: [facility] Address: [address] [place] [address] Performed By: #### 3 4528-0, 72787-4 ####[facility] LABORATORYCLIA [id number] [address] [place] aPTT Coag (PPP) [Time] 52.6 s High 23.0-32.4 [facility] Comment on above: Order Comment: Speci men Type: BLOOD SPECIMENOrdering Facility: [facility] Address: [address] [place] [address] Performed By: #### 1 4979-9 ####[facility] LABORATORYCLIA [id number] [address] [place] Bacteria Ur Culton 5 Bacteria identified Cx Nom (U) CULTURE, URINE: No growth (<100 CFU/ml) Normal [facility] Comment on above: Performed By: #### 2 4356-8, 630-4 ####[facility] LABORATORYCLIA [id number] [address] [place] CASE MANAGEMon 04-13-2025 CASE MANAGEM Normal [facility] CBC panel Auto (Bld)on 04-13 Erythrocyte distribution width (RBC) [Ratio] 15.8 % High 11.5-15.0 [facility] Comment on above: Order Comment: Speci men Type: BLOOD SPECIMENOrdering Facility: [facility] Address: [address] [place] [address] Performed By: #### 5 8410-2 ####[facility] LABORATORYCLIA [id number] [address] Hematocrit (Bld) [Volume fraction] 24.5 % Low 39.0-51.0 [facility] Comment on above: Order Comment: Speci men Type: BLOOD SPECIMENOrdering Facility: [facility] Address: [address] [place] [address] Performed By: #### 5 8410-2 ####[facility] LABORATORYCLIA [id number] [address] [place] Hemoglobin (Bld) [Mass/Vol] 7.6 g/dL Low 13.0-17.0 [facility] Comment on above: Order Comment: Speci men Type: BLOOD SPECIMENOrdering Facility: [facility] Address: [address] [place] [address] Performed By: #### 5 8410-2 ####[facility] LABORATORYCLIA [id number] [address] [place] MCH (RBC) [Entitic mass] 27.0 pg Normal 26.0-34.0 [facility] Comment on above: Order Comment: Speci men Type: BLOOD SPECIMENOrdering Facility: [facility] Address: [address] [place] [address] Performed By: #### 5 8410-2 ####[facility] LABORATORYCLIA [id number] [address] [place] MCHC (RBC) [Mass/Vol] 31.0 g/dL Normal 30.5-36.0 [facility] Comment on above: Order Comment: Speci men Type: BLOOD SPECIMENOrdering Facility: [facility] Address: [address] [place] [address] Performed By: #### 5 8410-2 ####[facility] LABORATORYCLIA [id number] [address] STATES OF [facility] MCV (RBC) [Entitic vol] 86.9 fL Normal 80.0-100.0 [facility] Comment on above: Order Comment: Speci men Type: BLOOD SPECIMENOrdering Facility: [facility] Address: [address] [place] [address] Performed By: #### 5 8410-2 ####[facility] LABORATORYCLIA [id number] [address] [place] Nucleated RBC (Bld) [#/Vol] 10*3/uL Normal <0.01 [facility] Comment on above: Order Comment: Speci men Type: BLOOD SPECIMENOrdering Facility: [facility] Address: [address] [place] [address] Performed By: #### 5 8410-2 ####[facility] LABORATORYCLIA [id number] [address] Platelet mean volume (Bld) [Entitic vol] 10.4 fL Normal 9.0-12.7 [facility] Comment on above: Order Comment: Speci men Type: BLOOD SPECIMENOrdering Facility: [facility] Address: [address] [place] [address] Performed By: #### 5 8410-2 ####[facility] LABORATORYCLIA [id number] [address] [place] Platelets (Bld) [#/Vol] 163 10*3/uL Normal 150-400 [facility] Comment on above: Order Comment: Speci men Type: BLOOD SPECIMENOrdering Facility: [facility] Address: [address] [place] [address] Performed By: #### 5 8410-2 ####[facility] LABORATORYCLIA [id number] [place] [address] [place] RBC (Bld) [#/Vol] 2.82 10*6/uL Low 4.20-6.00 [facility] Comment on above: Order Comment: Speci men Type: BLOOD SPECIMENOrdering Facility: [facility] Address: [address] [place] [address] Performed By: #### 5 8410-2 ####[facility] LABORATORYCLIA [id number] [place] [address] [place] WBC (Bld) [#/Vol] 9.62 10*3/uL Normal 3.70-11.00 [facility] Comment on above: Order Comment: Speci men Type: BLOOD SPECIMENOrdering Facility: [facility] Address: [address] [place] [address] Performed By: #### 5 8410-2 ####[facility] LABORATORYCLIA [id number] [address] CONSULT PROGon 04-13-2025 CONSULT PROG Normal [facility] Magnesium SerPl-mCncon 04-13 Magnesium [Mass/Vol] 2.3 mg/dL Normal 1.7-2.3 [facility] Comment on above: Order Comment: Speci men Type: BLOOD SPECIMENOrdering Facility: [facility] Address: [address] [place] [address] Performed By: #### 2 4362-6, 65685-2 ####[facility] LABORATORYCLIA [id number] [place] [address] [place] NUTRITIONon 04-13-2025 NUTRITION Normal [facility] PT panel Coag (PPP)on 2024 INR Coag (PPP) [Relative time] 1.0 {INR} Normal 0.9-1.3 [facility] Comment on above: Order Comment: Speci men Type: BLOOD SPECIMENOrdering Facility: [facility] Address: [address] [place] [address] Result Comment: Antionette min K Antagonist (VKA) Therapeutic Range: INR 2 to 3 (Target INR of 2.5)Note: For patients treated with VKA drugs, such as warfarin, the [place] [employer] 2012 Guideline recommends a therapeutic INR range of 2 to 3 (target INR of 2.5). This recommendation includes high-risk patients with antiphospholipid syndrome with previous arterial or venous thromboembolism, current-generation mechanical or bioprosthetic aortic heart valve replacement.Note: Patients with mechanical aortic valve replacement and additional risk factors for thromboembolic events (atrial fibrillation, previous thromboembolism, LV dysfunction, hypercoagulable conditions) or an older generation mechanical AVR (i.e., ball in-Cage) or any mechanical MVR should have a INR therapeutic range of 2.5 to 3.5 (target INR of 3).Adelaida GH, et al. Chest 2012, 141:7S-47SNishimura RA, et al. [facility] 2017, 70: 252-289 Performed By: #### 1 4979-9, 50691-2 ####[facility]PITALCLIA [id number] [address] [place] PT Coag (PPP) [Time] 11.0 s Normal 9.7-13.0 [facility] Comment on above: Order Comment: Jose Cruz johnson Type: BLOOD SPECIMENOrdering Facility: [facility] Address: [address] [place] [address] Performed By: #### 1 4979-9, 26068-8 ####[facility] HOSPITALCLIA [id number] [address] [place] Renal function 2000 panelon 04-13-2025 Albumin [Mass/Vol] 2.8 g/dL Low 3.9-4.9 [facility] Comment on above: Order Comment: Jose Cruz johnson Type: BLOOD SPECIMENOrdering Facility: [facility] Address: [address] [place] [address] Performed By: #### 2 4362-6, 46888-9 ####[facility] LABORATORYCLIA [id number] [address] [place] Anion gap [Moles/Vol] 19 mmol/L High 8-15 [facility] Comment on above: Order Comment: Jose Cruz johnson Type: BLOOD SPECIMENOrdering Facility: [facility] Address: [address] [place] [address] Performed By: #### 2 436-6, ####[facility]ORATORYCLIA [id number] [place] [address] [place] Calcium [Mass/Vol] 7.7 mg/dL Low 8.5-10.2 [facility] Comment on above: Order Comment: Speci men Type: BLOOD SPECIMENOrdering Facility: [facility] Address: [address] [place] [address] Performed By: #### 2 4366, ####[facility] LABORATORYCLIA [id number] [place] [address] [place] Chloride [Moles/Vol] 98 mmol/L Normal 98-107 [facility] Comment on above: Order Comment: Speci men Type: BLOOD SPECIMENOrdering Facility: [facility] Address: [address] [place] [address] Performed By: #### 2 43610-26, ####[facility] LABORATORYCLIA [id number] [place] [address] [place] CO2 [Moles/Vol] 20 mmol/L Low 22-30 [facility] Comment on above: Order Comment: Speci men Type: BLOOD SPECIMENOrdering Facility: [facility] Address: [address] [place] [address] Performed By: #### 2 43610-26, ####[facility] LABORATORYCLIA [id number] [place] [address] [place] Creatinine [Mass/Vol] 2.26 mg/dL High 0.73-1.22 [facility] Comment on above: Order Comment: Speci men Type: BLOOD SPECIMENOrdering Facility: [facility] Address: [address] [place] [address] Performed By: #### 2 436-6, ####[facility] LABORATORYCLIA [id number] [place] [address] [place] eGFRcr SerPlBld CKD-EPI 2020 30 mL/min/1.73m??? Low >=60 [facility] Comment on above: Order Comment: Jose Cruz johnson Type: BLOOD SPECIMENOrdering Facility: [facility] Address: [address] [place] [address] Result Comment: Mary Kay mated Glomerular Filtration Rate (eGFR) is calculated using the 2020 CKD-EPI creatinine equation. This equation utilizes serum creatinine, sex, and age as parameters. The creatinine assay has traceable calibration to isotope dilution-mass spectrometry. Refer to KDIGO guidelines for clinical interpretation. In patients with unstable renal function, e.g. those with acute kidney injury, the eGFR may not accurately reflect actual GFR. Performed By: #### 2 4362-6, 91579-7 ####[facility] LABORATORYCLIA [id number] [place] [address] [place] Glucose [Mass/Vol] 111 mg/dL High 74-99 [facility] Comment on above: Order Comment: Jose Cruz johnson Type: BLOOD SPECIMENOrdering Facility: [facility] Address: [address] [place] [address] Result Comment: The [place] [employer] (ADA) provides guidance for cutoff values for fasting glucose and random glucose. The ADA defines fasting as no caloric intake for at least 8 hours. Fasting plasma glucose results between 100 to 125 mg/dL indicate increased risk for diabetes (prediabetes).Fasting plasma glucose results greater than or equal to 126 mg/dL meet the criteria for diagnosis of diabetes. In the absence of unequivocal hyperglycemia, results should be confirmed by repeat testing. In a patient with classic symptoms of hyperglycemia or hyperglycemic crisis, random plasma glucose results greater than or equal to 200 mg/dL meet the criteria for diagnosis of diabetes.Reference: Standards of Medical Care in Diabetes 2016, [place] [employer]. Diabetes Care. 2016.39(Suppl 1). Performed By: #### 2 4362-6, 59187-2 ####[facility] LABORATORYCLIA [id number] [place] [id number] [place] Phosphate [Mass/Vol] 3.9 mg/dL Normal 2.7-4.8 [facility] Comment on above: Order Comment: Jose Cruz johnson Type: BLOOD SPECIMENOrdering Facility: [facility] Address: [address] [place] [address] Performed By: #### 2 4362-6, ####[facility] LABORATORYCLIA [id number] [place] [id number] [place] [facility] Potassium [Moles/Vol] 3.7 mmol/L Normal 3.7-5.1 [facility] Comment on above: Order Comment: Speci men Type: BLOOD SPECIMENOrdering Facility: [facility] Address: [address] [place] [address] Performed By: #### 2 4362-6, ####[facility] LABORATORYCLIA [id number] [address] STATES OF [facility] Sodium [Moles/Vol] 137 mmol/L Normal 136-144 [facility] Comment on above: Order Comment: Speci men Type: BLOOD SPECIMENOrdering Facility: [facility] Address: [address] [place] [address] Performed By: #### 2 4362-6, ####[facility] LABORATORYCLIA [id number] [address] STATES OF [facility] Urea nitrogen [Mass/Vol] 20 mg/dL Normal 9-24 [facility] Comment on above: Order Comment: Speci men Type: BLOOD SPECIMENOrdering Facility: [facility] Address: [address] [place] [address] Performed By: #### 2 4362-6, ####[facility] LABORATORYCLIA [id number] [address] [place] Urinalysis complete panel (U )on 04-13-2025 Bacteria LM.HPF (Urine sed) [#/Area] Many Abnormal None Seen [facility] Comment on above: Order Comment: Speci men Type: URINE SPECIMENOrdering Facility: [facility] Address: [address] [place] [address] Performed By: #### 2 4356-8, 630-4 ####[facility] LABORATORYCLIA [id number] [address] [place] Bilirubin Ql (U) Negative Normal Negative [facility] Comment on above: Order Comment: Speci men Type: URINE SPECIMENOrdering Facility: [facility] Address: [facility] [place] [address] Performed By: #### 2 4356-8, 630-4 ####[facility] LABORATORYCLIA [id number] [address] [place] Clarity (Unsp spec) Dense Turbid Abnormal Clear [facility] Comment on above: Order Comment: Speci men Type: URINE SPECIMENOrdering Facility: [facility] Address: [address] [place] [address] Performed By: #### 2 4356-8, 630-4 ####[facility] LABORATORYCLIA [id number] [address] Color (U) Sallis Abnormal yellow [facility] Comment on above: Order Comment: Speci men Type: URINE SPECIMENOrdering Facility: [facility] Address: [address] [place] [address] Performed By: #### 2 4356-8, 630-4 ####[facility] LABORATORYCLIA [id number] [address] Epithelial cells LM.HPF (Urine sed) [#/Area] Few Normal [facility] Comment on above: Order Comment: Speci men Type: URINE SPECIMENOrdering Facility: [facility] Address: [address] [place] [address] Performed By: #### 2 43568, 630-4 ####[facility] LABORATORYCLIA [id number] [address] [place] Glucose Test strip (U) [Mass/Vol] Negative Normal Trace, Negative [facility] Comment on above: Order Comment: Speci men Type: URINE SPECIMENOrdering Facility: [facility] Address: [address] [place] [address] Performed By: #### 2 4356-8, 630-4 ####[facility] LABORATORYCLIA [id number] [address] [place] Granular casts (Urine sed) [#/Area] /[LPF] Abnormal 0 /LPF [facility] Comment on above: Order Comment: Speci men Type: URINE SPECIMENOrdering Facility: [facility] Address: [address] [place] [address] Performed By: #### 2 4356-8, 630-4 ####[facility] LABORATORYCLIA [id number] [place] [address] [place] Hemoglobin Ql (U) 3+ Abnormal Negative, Trace [facility] Comment on above: Order Comment: Speci men Type: URINE SPECIMENOrdering Facility: [facility] Address: [address] [place] [address] Performed By: #### 2 4356-8, 630-4 ####[facility] LABORATORYCLIA [id number] [address] STATES OF [facility] Ketones Ql (U) 1+ Abnormal Negative, Trace [facility] Comment on above: Order Comment: Speci men Type: URINE SPECIMENOrdering Facility: [facility] Address: [address] [place] [address] Performed By: #### 2 4356-8, 630-4 ####[facility] LABORATORYCLIA [id number] [address] [place] Leukocyte esterase Test strip Ql (U) 250 Mayra/uL Abnormal Negative, 25 Mayra/uL [facility] Comment on above: Order Comment: Speci men Type: URINE SPECIMENOrdering Facility: [facility] Address: [address] [place] [address] Performed By: #### 2 4356-8, 630-4 ####[facility] LABORATORYCLIA [id number] [address] STATES [facility] Nitrite Ql (U) Negative Normal Negative [facility] Comment on above: Order Comment: Speci men Type: URINE SPECIMENOrdering Facility: [facility] Address: [address] [place] [address] Performed By: #### 2 4356-8, 630-4 ####[facility] LABORATORYCLIA [id number] [place] [address] [place] pH (U) 5.0 [pH] Normal 5.0-8.0 [facility] Comment on above: Order Comment: Speci men Type: URINE SPECIMENOrdering Facility: [facility] Address: [address] [place] [address] Performed By: #### 2 4356-8, 630-4 ####[facility] LABORATORYCLIA [id number] [address] Protein (U) [Mass/Vol] 1+ Abnormal Trace, Negative [facility] Comment on above: Order Comment: Speci men Type: URINE SPECIMENOrdering Facility: [facility] Address: [address] [place] [address] Performed By: #### 2 4356-8, 630-4 ####[facility] LABORATORYCLIA [id number] [address] STATES [facility] RBC LM.HPF (Urine sed) [#/Area] /[HPF] Abnormal 0-3 /HPF [facility] Comment on above: Order Comment: Speci men Type: URINE SPECIMENOrdering Facility: [facility] Address: [address] [place] [address] Performed By: #### 2 4356-8, 630-4 ####[facility] LABORATORYCLIA [id number] [address] [place] Specific gravity (U) [Rel density] 1.023 Normal 1.005-1.030 [facility] Comment on above: Order Comment: Speci men Type: URINE SPECIMENOrdering Facility: [facility] Address: [address] [place] [address] Performed By: #### 2 4356-8, 630-4 ####[facility] LABORATORYCLIA [id number] [address] SPERM Present Abnormal None Seen [facility] Comment on above: Order Comment: Speci men Type: URINE SPECIMENOrdering Facility: [facility] Address: [address] [place] [address] Performed By: #### 2 4356-8, 630-4 ####[facility] LABORATORYCLIA [id number] [address] Urobilinogen Ql (U) Normal Normal Normal [facility] Comment on above: Order Comment: Speci men Type: URINE SPECIMENOrdering Facility: [facility] Address: [address] [place] [address] Performed By: #### 2 4356-8, 630-4 ####[facility] LABORATORYCLIA [id number] [address] [place] WBC LM.HPF (Urine sed) [#/Area] /[HPF] Abnormal 0-5 /HPF [facility] Comment on above: Order Comment: Speci men Type: URINE SPECIMENOrdering Facility: [facility] Address: [address] [place] [address] Performed By: #### 2 4356-8, 630-4 ####[facility] LABORATORYCLIA [id number] [address] [place] XR CHEST 1V FRONTALon 2024 XR CHEST 1V FRONTAL Normal [facility] aPTT PPPon 04-13-2025 aPTT Coag (PPP) [Time] 58.9 s High 23.0-32.4 [facility] Comment on above: Order Comment: Speci men Type: BLOOD SPECIMENOrdering Facility: [facility] Address: [address] [place] [address] Performed By: #### 1 4979-9 ####[facility] LABORATORYCLIA [id number] [address] [place] aPTT Coag (PPP) [Time] 48.9 s High 23.0-32.4 [facility] Comment on above: Order Comment: Speci men Type: BLOOD SPECIMENOrdering Facility: [facility] Address: [address] [place] [address] Performed By: #### 1 4979-9 ####[facility] LABORATORYCLIA [id number] [address] aPTT Coag (PPP) [Time] 50.1 s High 23.0-32.4 [facility] Comment on above: Order Comment: Speci men Type: BLOOD SPECIMENOrdering Facility: [facility] Address: [address] [place] [address] Performed By: #### 1 4979-9, 95412-5 ####[facility] LABORATORYCLIA [id number] [address] [place] aPTT Coag (PPP) [Time] 45.7 s High 23.0-32.4 [facility] Comment on above: Order Comment: Speci men Type: BLOOD SPECIMENOrdering Facility: [facility] Address: [address] [place] [address] Performed By: #### 1 4979-9 ####[facility] LABORATORYCLIA [id number] [address] [place] ARTERIAL BLOOD GASESon 04-12 Base deficit (BldA) [Moles/Vol] -3 mmol/L Low -2-0 [facility] Comment on above: Order Comment: Speci men Type: ARTERIAL BLOOD SPECIMENOrdering Facility: [facility] Address: [address] [place] [address] Performed By: #### A LLBG ####[facility] LABORATORYCLIA [id number] [address] [place] Body temperature 99.5 [degF] Normal [facility] Comment on above: Order Comment: Speci men Type: ARTERIAL BLOOD SPECIMENOrdering Facility: [facility] Address: [address] [place] [address] Performed By: #### A LLBG ####[facility] LABORATORYCLIA [id number] [address] [place] Calcium.ionized (BldV) [Mass/Vol] 1.07 mmol/L Low 1.08-1.30 [facility] Comment on above: Order Comment: Speci men Type: ARTERIAL BLOOD SPECIMENOrdering Facility: [facility] Address: [address] [place] [address] Performed By: #### A LLBG ####[facility] LABORATORYCLIA [id number] [address] Calcium.ionized adjusted to pH 7.4 (BldA) [Moles/Vol] 1.08 mmol/L Normal 1.08-1.30 [facility] Comment on above: Order Comment: Speci men Type: ARTERIAL BLOOD SPECIMENOrdering Facility: [facility] Address: [address] [place] [address] Performed By: #### A LLBG ####[facility] LABORATORYCLIA [id number] [address] Carboxyhemoglobin (BldA) [Mass fraction] 0.9 % Normal 0.0-2.0 [facility] Comment on above: Order Comment: Speci men Type: ARTERIAL BLOOD SPECIMENOrdering Facility: [facility] Address: [address] [place] [address] Result Comment: Carb oxyhemoglobin Reference Range for Smokers: 2.0-8.0% Performed By: #### A LLBG ####[facility] LABORATORYCLIA [id number] [address] [place] Chloride [Moles/Vol] 104 mmol/L Normal 97-105 [facility] Comment on above: Order Comment: Speci men Type: ARTERIAL BLOOD SPECIMENOrdering Facility: [facility] Address: [address] [place] [address] Performed By: #### A LLBG ####[facility] LABORATORYCLIA [id number] [address] [place] CO2 (Bld) [Partial pressure] 33 mm Hg Low 36-46 [facility] Comment on above: Order Comment: Speci men Type: ARTERIAL BLOOD SPECIMENOrdering Facility: [facility] Address: [address] [place] [address] Performed By: #### A LLBG ####[facility] LABORATORYCLIA [id number] [address] [place] CO2 adjusted to patient's actual temperature (Bld) [Partial pressure] 33 mmHg Low 36-46 [facility] Center Comment on above: Order Comment: Speci men Type: ARTERIAL BLOOD SPECIMENOrdering Facility: [facility] Address: [address] [place] [address] Performed By: #### A LLBG ####[facility] LABORATORYCLIA [id number] [place] [address] [place] FIO2 40 % Normal [facility] Comment on above: Order Comment: Speci men Type: ARTERIAL BLOOD SPECIMENOrdering Facility: [facility] Address: [address] [place] [address] Performed By: #### A LLBG ####[facility] LABORATORYCLIA [id number] [address] [place] Glucose [Mass/Vol] 120 mg/dL High 60-105 [facility] Comment on above: Order Comment: Speci men Type: ARTERIAL BLOOD SPECIMENOrdering Facility: [facility] Address: [address] [place] [address] Performed By: #### A LLBG ####[facility] LABORATORYCLIA [id number] [place] [address] [place] HCO3 (Bld) [Moles/Vol] 21 mmol/L Low 22-26 [facility] Comment on above: Order Comment: Speci men Type: ARTERIAL BLOOD SPECIMENOrdering Facility: [facility] Address: [address] [place] [address] Performed By: #### A LLBG ####[facility] LABORATORYCLIA [id number] [address] [place] Hematocrit (Bld) [Volume fraction] 25.5 % Low 39.0-51.0 [facility] Comment on above: Order Comment: Speci men Type: ARTERIAL BLOOD SPECIMENOrdering Facility: [facility] Address: [address] [place] [address] Performed By: #### A LLBG ####[facility] LABORATORYCLIA [id number] [place] [address] [place] Hemoglobin (Bld) [Mass/Vol] 8.2 g/dL Low 13.0-17.0 [facility] Comment on above: Order Comment: Speci men Type: ARTERIAL BLOOD SPECIMENOrdering Facility: [facility] Address: [address] [place] [address] Performed By: #### A LLBG ####[facility] LABORATORYCLIA [id number] [address] [place] INHALED TIDAL VOLUME (ML) 450 Normal [facility] Comment on above: Order Comment: Speci men Type: ARTERIAL BLOOD SPECIMENOrdering Facility: [facility] Address: [address] [place] [address] Performed By: #### A LLBG ####[facility] LABORATORYCLIA [id number] [address] [place] INVASIVE VENTILATOR MODE SIMV PRVC or VC+ or APVimv (PC-IMV(1)a,s) Normal [facility] Comment on above: Order Comment: Speci men Type: ARTERIAL BLOOD SPECIMENOrdering Facility: [facility] Address: [address] [place] [address] Performed By: #### A LLBG ####[facility] LABORATORYCLIA [id number] [address] [place] Lactate [Moles/Vol] 0.7 mmol/L Normal 0.5-2.2 [facility] Comment on above: Order Comment: Speci men Type: ARTERIAL BLOOD SPECIMENOrdering Facility: [facility] Address: [address] [place] [address] Performed By: #### A LLBG ####[facility] LABORATORYCLIA [id number] [address] [place] Methemoglobin (Bld) [Mass fraction] 1.1 % Normal 0.0-1.5 [facility] Comment on above: Order Comment: Speci men Type: ARTERIAL BLOOD SPECIMENOrdering Facility: [facility] Address: [address] [place] [address] Performed By: #### A LLBG ####[facility] LABORATORYCLIA [id number] [address] O2 THERAPY VENT=Ventilator Normal [facility] Comment on above: Order Comment: Speci men Type: ARTERIAL BLOOD SPECIMENOrdering Facility: [facility] Address: [address] [place] [address] Performed By: #### A LLBG ####[facility] LABORATORYCLIA [id number] [address] [place] Oxygen (Bld) [Partial pressure] 107 mm Hg High 85-95 [facility] Comment on above: Order Comment: Speci men Type: ARTERIAL BLOOD SPECIMENOrdering Facility: [facility] Address: [address] [place] [address] Performed By: #### A LLBG ####[facility] LABORATORYCLIA [id number] [address] Oxygen adjusted to patient's actual temperature (Bld) [Partial pressure] 109 mmHg High 85-95 [facility] Comment on above: Order Comment: Speci men Type: ARTERIAL BLOOD SPECIMENOrdering Facility: [facility] Address: [address] [place] [address] Performed By: #### A LLBG ####[facility] LABORATORYCLIA [id number] [address] Oxyhemoglobin (BldA) [Mass fraction] 96 % Normal 95-98 [facility] Comment on above: Order Comment: Speci men Type: ARTERIAL BLOOD SPECIMENOrdering Facility: [facility] Address: [address] [place] [address] Performed By: #### A LLBG ####[facility] LABORATORYCLIA [id number] [address] [place] PEEP/CPAP 16 cmH2O Normal [facility] Comment on above: Order Comment: Speci men Type: ARTERIAL BLOOD SPECIMENOrdering Facility: [facility] Address: [address] [place] [address] Performed By: #### A LLBG ####[facility]ORATORYCLIA [id number] [address] [place] pH (Bld) 7.42 [pH] Normal 7.35-7.45 [facility] Comment on above: Order Comment: Speci men Type: ARTERIAL BLOOD SPECIMENOrdering Facility: [facility] Address: [address] [place] [address] Performed By: #### A LLBG ####[facility]ORATORYCLIA [id number] [address] pH adjusted to patient's actual temperature (Bld) 7.42 Normal 7.35-7.45 [facility] Comment on above: Order Comment: Speci men Type: ARTERIAL BLOOD SPECIMENOrdering Facility: [facility] Address: [address] [place] [address] Performed By: #### A LLBG ####[facility]ORATORYCLIA [id number] [address] PO2 / FIO2 RATIO 268 mmHg Low >300 [facility] Comment on above: Order Comment: Speci men Type: ARTERIAL BLOOD SPECIMENOrdering Facility: [facility] Address: [address] [place] [address] Performed By: #### A LLBG ####[facility]ORATORYCLIA [id number] [address] STATES [facility] Potassium [Moles/Vol] 3.3 mmol/L Low 3.5-5.0 [facility] Comment on above: Order Comment: Speci men Type: ARTERIAL BLOOD SPECIMENOrdering Facility: [facility] Address: [address] [place] [address] Performed By: #### A LLBG ####[facility]ORATORYCLIA [id number] [address] SET VENTILATOR RESPIRATORY RATE (BPM) 20 BPM Normal [facility] Comment on above: Order Comment: Speci men Type: ARTERIAL BLOOD SPECIMENOrdering Facility: [facility] Address: [address] [place] [address] Performed By: #### A LLBG ####[facility] LABORATORYCLIA [id number] [address] [facility] Sodium [Moles/Vol] 134 mmol/L Low 136-144 [facility] Comment on above: Order Comment: Speci men Type: ARTERIAL BLOOD SPECIMENOrdering Facility: [facility] Address: [address] [place] [address] Performed By: #### A LLBG ####[facility] LABORATORYCLIA [id number] [address] STATES OF [facility] CBC panel Auto (Bld)on 04-12 Erythrocyte distribution width (RBC) [Ratio] 15.8 % High 11.5-15.0 [facility] Comment on above: Order Comment: Speci men Type: BLOOD SPECIMENOrdering Facility: [facility] Address: [address] [place] [address] Performed By: #### 5 8410-2 ####[facility] LABORATORYCLIA [id number] [address] STATES [facility] Hematocrit (Bld) [Volume fraction] 25.2 % Low 39.0-51.0 [facility] Comment on above: Order Comment: Speci men Type: BLOOD SPECIMENOrdering Facility: [facility] Address: [address] [place] [address] Performed By: #### 5 8410-2 ####[facility] LABORATORYCLIA [id number] [address] STATES OF [facility] Hemoglobin (Bld) [Mass/Vol] 7.7 g/dL Low 13.0-17.0 [facility] Comment on above: Order Comment: Speci men Type: BLOOD SPECIMENOrdering Facility: [facility] Address: [address] [place] [address] Performed By: #### 5 8410-2 ####[facility] LABORATORYCLIA [id number] [address] [place] MCH (RBC) [Entitic mass] 25.9 pg Low 26.0-34.0 [facility] Comment on above: Order Comment: Speci men Type: BLOOD SPECIMENOrdering Facility: [facility] Address: [address] [place] [address] Performed By: #### 5 8410-2 ####[facility] LABORATORYCLIA [id number] [address] STATES [facility] MCHC (RBC) [Mass/Vol] 30.6 g/dL Normal 30.5-36.0 [facility] Comment on above: Order Comment: Speci men Type: BLOOD SPECIMENOrdering Facility: [facility] Address: [address] [place] [address] Performed By: #### 5 8410-2 ####[facility] LABORATORYCLIA [id number] [address] [place] MCV (RBC) [Entitic vol] 84.8 fL Normal 80.0-100.0 [facility] Comment on above: Order Comment: Speci men Type: BLOOD SPECIMENOrdering Facility: [facility] Address: [address] [place] [address] Performed By: #### 5 8410-2 ####[facility] LABORATORYCLIA [id number] [address] [place] Nucleated RBC (Bld) [#/Vol] 10*3/uL Normal <0.01 [facility] Comment on above: Order Comment: Speci men Type: BLOOD SPECIMENOrdering Facility: [facility] Address: [address] [place] [address] Performed By: #### 5 8410-2 ####[facility] LABORATORYCLIA [id number] [address] [place] Platelet mean volume (Bld) [Entitic vol] 10.4 fL Normal 9.0-12.7 [facility] Comment on above: Order Comment: Speci men Type: BLOOD SPECIMENOrdering Facility: [facility] Address: [address] [place] [address] Performed By: #### 5 8410-2 ####[facility] LABORATORYCLIA [id number] [address] [place] Platelets (Bld) [#/Vol] 178 10*3/uL Normal 150-400 [facility] Comment on above: Order Comment: Speci men Type: BLOOD SPECIMENOrdering Facility: [facility] Address: [address] [place] [address] Performed By: #### 5 8410-2 ####[facility] LABORATORYCLIA [id number] [address] OF [facility] RBC (Bld) [#/Vol] 2.97 10*6/uL Low 4.20-6.00 [facility] Comment on above: Order Comment: Speci men Type: BLOOD SPECIMENOrdering Facility: [facility] Address: [address] [place] [address] Performed By: #### 5 8410-2 ####[facility] LABORATORYCLIA [id number] [address] WBC (Bld) [#/Vol] 7.52 10*3/uL Normal 3.70-11.00 [facility] Comment on above: Order Comment: Speci men Type: BLOOD SPECIMENOrdering Facility: [facility] Address: [address] [place] [address] Performed By: #### 5 8410-2 ####[facility] LABORATORYCLIA [id number] [address] ECHO WITH AGITATED SALINE CO NTRASTon 04-12-2025 ECHO WITH AGITATED SALINE CONTRAST Normal [facility] GBM IGG AUTOANTIBODYon 04-12 GBM IGG AB, (BEAD) 0 AU/mL Normal 0-19 [facility] Comment on above: Order Comment: Speci men Type: BLOOD SPECIMENOrdering Facility: [facility] Address: [address] [place] [address] Result Comment: INTE RPRETIVE INFORMATION: GBM Ab, IgG by Multiplex Bead Assay 19 AU/mL or Less ......... Negative 20-25 AU/mL .............. Equivocal 26 AU/mL or Greater ...... PositiveThe presence of anti-glomerular basement membrane (GBM) antibodiesby Multiplex Bead Assay may aid in the diagnosis of Goodpasturesyndrome. False positive results may occur due to reactivityagainst other chains of type IV collagen. If Multiplex Bead Assayis negative but there is a strong suspicion for disease, renalbiopsy may be indicated. A renal biopsy may also be essential insuspected Goodpasture disease with renal involvement, allowingdiagnostic confirmation and assessment of renal prognosis.Performed By: [facility] [id number] [place] [address] [id number] Director: Sandoval Gandhi MD, PhDCLIA Number: [id number] Performed By: #### G BMBG ####[facility] S[facility]IA [id number] [place] [address] NURSING PROGon 04-12-2025 NURSING PROG Normal [facility] Renal function 2000 panelon 04-12-2025 Albumin [Mass/Vol] 2.7 g/dL Low 3.9-4.9 [facility] Comment on above: Order Comment: Speci men Type: BLOOD SPECIMENOrdering Facility: [facility] Address: [address] [place] [address] Performed By: #### 2 4362-6 ####[facility] LABORATORYCLIA [id number] [place] [address] [place] Anion gap [Moles/Vol] 17 mmol/L High 8-15 [facility] Comment on above: Order Comment: Speci men Type: BLOOD SPECIMENOrdering Facility: [facility] Address: [address] [place] [address] Performed By: #### 2 4362-6 ####[facility] LABORATORYCLIA [id number] [place] [address] [place] Calcium [Mass/Vol] 7.9 mg/dL Low 8.5-10.2 [facility] Comment on above: Order Comment: Speci men Type: BLOOD SPECIMENOrdering Facility: [facility] Address: [address] [place] [address] Performed By: #### 2 4362-6 ####[facility] LABORATORYCLIA [id number] [place] [address] [place] Chloride [Moles/Vol] 97 mmol/L Low 98-107 [facility] Comment on above: Order Comment: Speci men Type: BLOOD SPECIMENOrdering Facility: [facility] Address: [address] [place] [address] Performed By: #### 2 4362-6 ####[facility] LABORATORYCLIA [id number] [place] [address] [place] CO2 [Moles/Vol] 21 mmol/L Low 22-30 [facility] Comment on above: Order Comment: Speci men Type: BLOOD SPECIMENOrdering Facility: [facility] Address: [address] [place] [address] Performed By: #### 2 4362-6 ####[facility] LABORATORYCLIA [id number] [place] [address] [place] Creatinine [Mass/Vol] 2.74 mg/dL High 0.73-1.22 [facility] Comment on above: Order Comment: Speci men Type: BLOOD SPECIMENOrdering Facility: [facility] Address: [address] [place] [address] Performed By: #### 2 4362-6 ####[facility] LABORATORYCLIA [id number] [address] [place] eGFRcr SerPlBld CKD-EPI 2020 24 mL/min/1.73m??? Low >=60 [facility] Comment on above: Order Comment: Speci men Type: BLOOD SPECIMENOrdering Facility: [facility] Address: [address] [place] [address] Result Comment: Mary Kay mated Glomerular Filtration Rate (eGFR) is calculated using the 2020 CKD-EPI creatinine equation. This equation utilizes serum creatinine, sex, and age as parameters. The creatinine assay has traceable calibration to isotope dilution-mass spectrometry. Refer to KDIGO guidelines for clinical interpretation. In patients with unstable renal function, e.g. those with acute kidney injury, the eGFR may not accurately reflect actual GFR. Performed By: #### 2 4362-6 ####[facility] LABORATORYCLIA [id number] [address] [place] Glucose [Mass/Vol] 116 mg/dL High 74-99 [facility] Comment on above: Order Comment: Speci men Type: BLOOD SPECIMENOrdering Facility: [facility] Address: [address] [place], [place] [id number] Result Comment: The [place] Diabetes [employer] (ADA) provides guidance for cutoff values for fasting glucose and random glucose. The ADA defines fasting as no caloric intake for at least 8 hours. Fasting plasma glucose results between 100 to 125 mg/dL indicate increased risk for diabetes (prediabetes).Fasting plasma glucose results greater than or equal to 126 mg/dL meet the criteria for diagnosis of diabetes. In the absence of unequivocal hyperglycemia, results should be confirmed by repeat testing. In a patient with classic symptoms of hyperglycemia or hyperglycemic crisis, random plasma glucose results greater than or equal to 200 mg/dL meet the criteria for diagnosis of diabetes.Reference: Standards of Medical Care in Diabetes 2016, [place] [employer]. Diabetes Care. 2016.39(Suppl 1). Performed By: #### 2 4362-6 ####[facility] LABORATORYCLIA [id number] [place] [address] [place] Phosphate [Mass/Vol] 3.7 mg/dL Normal 2.7-4.8 [facility] Comment on above: Order Comment: [place] men Type: BLOOD SPECIMENOrdering Facility: [facility] Address: [address] [place] [address] Performed By: #### 2 4362-6 ####[facility] LABORATORYCLIA [id number] [place] [address] [place] Potassium [Moles/Vol] 3.4 mmol/L Low 3.7-5.1 [facility] Comment on above: Order Comment: Speci men Type: BLOOD SPECIMENOrdering Facility: [facility] Address: [address] [id number] Performed By: #### 2 4362-6 ####[facility] LABORATORYCLIA [id number] [place] [address] [place] Sodium [Moles/Vol] 135 mmol/L Low 136-144 [facility] Comment on above: Order Comment: Speci men Type: BLOOD SPECIMENOrdering Facility: [facility] Address: [address] [place] [address] Performed By: #### 2 4362-6 ####[facility] LABORATORYCLIA [id number] [address] Urea nitrogen [Mass/Vol] 25 mg/dL High 9-24 [facility] Comment on above: Order Comment: Speci men Type: BLOOD SPECIMENOrdering Facility: [facility] Address: [address] [place] [address] Performed By: #### 2 4362-6 ####[facility] LABORATORYCLIA [id number] [address] [place] XR CHEST 1V FRONTALon 2024 XR CHEST 1V FRONTAL Normal [facility] XR CHEST 1V FRONTAL Normal [facility] aPTT PPPon 04-12-2025 aPTT Coag (PPP) [Time] 50.1 s High 23.0-32.4 [facility] Comment on above: Order Comment: Speci men Type: BLOOD SPECIMENOrdering Facility: [facility] Address: [address] [place] [address] Performed By: #### 1 4979-9 ####[facility] LABORATORYCLIA [id number] [address] aPTT Coag (PPP) [Time] 80.1 s High 23.0-32.4 [facility] Comment on above: Order Comment: Speci men Type: BLOOD SPECIMENOrdering Facility: [facility] Address: [address] [place] [address] Performed By: #### 1 4979-9 ####[facility] LABORATORYCLIA [id number] [address] aPTT Coag (PPP) [Time] 47.4 s High 23.0-32.4 [facility] Comment on above: Order Comment: Speci men Type: BLOOD SPECIMENOrdering Facility: [facility] Address: [address] [place] [address] Performed By: #### 1 4979-9 ####[facility]ORATORYCLIA [id number] [place] [address] [place] ALLIED HEALTHon 04-11-2025 ALLIED HEALTH Normal [facility] ALLIED HEALTH Normal [facility] ARTERIAL BLOOD GASESon 04-11 Base deficit (BldA) [Moles/Vol] -3 mmol/L Low -2-0 [facility] Comment on above: Order Comment: Speci men Type: ARTERIAL BLOOD SPECIMENOrdering Facility: [facility] Address: [address] [place] [address] Performed By: #### A LLBG ####[facility] LABORATORYCLIA [id number] [address] [place] Body temperature 99.32 [degF] Normal [facility] Comment on above: Order Comment: Speci men Type: ARTERIAL BLOOD SPECIMENOrdering Facility: [facility] Address: [address] [place] [address] Performed By: #### A LLBG ####[facility] LABORATORYCLIA [id number] [address] [place] Calcium.ionized (BldV) [Mass/Vol] 1.06 mmol/L Low 1.08-1.30 [facility] Comment on above: Order Comment: Speci men Type: ARTERIAL BLOOD SPECIMENOrdering Facility: [facility] Address: [address] [place] [address] Performed By: #### A LLBG ####[facility] LABORATORYCLIA [id number] [address] [place] Calcium.ionized adjusted to pH 7.4 (BldA) [Moles/Vol] 1.04 mmol/L Low 1.08-1.30 [facility] Comment on above: Order Comment: Speci men Type: ARTERIAL BLOOD SPECIMENOrdering Facility: [facility] Address: [address] [place] [address] Performed By: #### A LLBG ####[facility] LABORATORYCLIA [id number] [address] [place] Carboxyhemoglobin (BldA) [Mass fraction] 0.8 % Normal 0.0-2.0 [facility] Comment on above: Order Comment: Speci men Type: ARTERIAL BLOOD SPECIMENOrdering Facility: [facility] Address: [address] [place] [address] Result Comment: Carb oxyhemoglobin Reference Range for Smokers: 2.0-8.0% Performed By: #### A LLBG ####[facility]ORATORYCLIA [id number] [address] [place] Chloride [Moles/Vol] 98 mmol/L Normal 97-105 [facility] Comment on above: Order Comment: Speci men Type: ARTERIAL BLOOD SPECIMENOrdering Facility: [facility] Address: [address] [place] [address] Performed By: #### A LLBG ####[facility]ORATORYCLIA [id number] [address] CO2 (Bld) [Partial pressure] 39 mm Hg Normal 36-46 [facility] Comment on above: Order Comment: Speci men Type: ARTERIAL BLOOD SPECIMENOrdering Facility: [facility] Address: [address] [place] [address] Performed By: #### A LLBG ####[facility] LABORATORYCLIA [id number] [address] CO2 adjusted to patient's actual temperature (Bld) [Partial pressure] 40 mmHg Normal 36-46 [facility] Comment on above: Order Comment: Speci men Type: ARTERIAL BLOOD SPECIMENOrdering Facility: [facility] Address: [address] [place] [address] Performed By: #### A LLBG ####[facility]ATORYCLIA [id number] [address] [place] FIO2 70 % Normal [facility] Comment on above: Order Comment: Speci men Type: ARTERIAL BLOOD SPECIMENOrdering Facility: [facility] Address: [address] [place] [address] Performed By: #### A LLBG ####[facility] LABORATORYCLIA [id number] [address] [place] Glucose [Mass/Vol] 202 mg/dL High 60-105 [facility] Comment on above: Order Comment: Speci men Type: ARTERIAL BLOOD SPECIMENOrdering Facility: [facility] Address: [address] [place] [address] Performed By: #### A LLBG ####[facility] LABORATORYCLIA [id number] [place] [address] [place] HCO3 (Bld) [Moles/Vol] 22 mmol/L Normal 22-26 [facility] Comment on above: Order Comment: Speci men Type: ARTERIAL BLOOD SPECIMENOrdering Facility: [facility] Address: [address] [place] [address] Performed By: #### A LLBG ####[facility] LABORATORYCLIA [id number] [address] [place] Hematocrit (Bld) [Volume fraction] 21.6 % Low 39.0-51.0 [facility] Comment on above: Order Comment: Speci men Type: ARTERIAL BLOOD SPECIMENOrdering Facility: [facility] Address: [address] [place] [address] Performed By: #### A LLBG ####[facility] LABORATORYCLIA [id number] [address] [place] Hemoglobin (Bld) [Mass/Vol] 6.9 g/dL Low 13.0-17.0 [facility] Comment on above: Order Comment: Speci men Type: ARTERIAL BLOOD SPECIMENOrdering Facility: [facility] Address: [address] [place] [address] Performed By: #### A LLBG ####[facility] LABORATORYCLIA [id number] [place] [address] [place] INHALED TIDAL VOLUME (ML) 450 Normal [facility] Comment on above: Order Comment: Speci men Type: ARTERIAL BLOOD SPECIMENOrdering Facility: [facility] Address: [address] [place] [address] Performed By: #### A LLBG ####[facility] LABORATORYCLIA [id number] [address] [place] Lactate [Moles/Vol] 0.9 mmol/L Normal 0.5-2.2 [facility] Comment on above: Order Comment: Speci men Type: ARTERIAL BLOOD SPECIMENOrdering Facility: [facility] Address: [address] [place] [address] Performed By: #### A LLBG ####[facility] LABORATORYCLIA [id number] [address] Methemoglobin (Bld) [Mass fraction] 0.9 % Normal 0.0-1.5 [facility] Comment on above: Order Comment: Speci men Type: ARTERIAL BLOOD SPECIMENOrdering Facility: [facility] Address: [address] [place] [address] Performed By: #### A LLBG ####[facility] LABORATORYCLIA [id number] [address] O2 THERAPY VENT=Ventilator Normal [facility] Comment on above: Order Comment: Speci men Type: ARTERIAL BLOOD SPECIMENOrdering Facility: [facility] Address: [address] [place] [address] Performed By: #### A LLBG ####[facility] LABORATORYCLIA [id number] [address] Oxygen (Bld) [Partial pressure] 118 mm Hg High 85-95 [facility] Comment on above: Order Comment: Speci men Type: ARTERIAL BLOOD SPECIMENOrdering Facility: [facility] Address: [address] [place] [address] Performed By: #### A LLBG ####[facility]ORATORYCLIA [id number] [address] Oxygen adjusted to patient's actual temperature (Bld) [Partial pressure] 120 mmHg High 85-95 [facility] Comment on above: Order Comment: Speci men Type: ARTERIAL BLOOD SPECIMENOrdering Facility: [facility] Address: [address] [place] [address] Performed By: #### A LLBG ####[facility]ORATORYCLIA [id number] [address] Oxyhemoglobin (BldA) [Mass fraction] 96 % Normal 95-98 [facility] Comment on above: Order Comment: Speci men Type: ARTERIAL BLOOD SPECIMENOrdering Facility: [facility] Address: [address] [place] [address] Performed By: #### A LLBG ####[facility] LABORATORYCLIA [id number] [address] [place] PEEP/CPAP 14 cmH2O Normal [facility] Comment on above: Order Comment: Speci men Type: ARTERIAL BLOOD SPECIMENOrdering Facility: [facility] Address: [address] [place] [address] Performed By: #### A LLBG ####[facility] LABORATORYCLIA [id number] [address] [place] pH (Bld) 7.37 [pH] Normal 7.35-7.45 [facility] Comment on above: Order Comment: Speci men Type: ARTERIAL BLOOD SPECIMENOrdering Facility: [facility] Address: [address] [place] [address] Performed By: #### A LLBG ####[facility] LABORATORYCLIA [id number] [address] pH adjusted to patient's actual temperature (Bld) 7.36 Normal 7.35-7.45 [facility] Comment on above: Order Comment: Speci men Type: ARTERIAL BLOOD SPECIMENOrdering Facility: [facility] Address: [address] [place] [address] Performed By: #### A LLBG ####[facility] LABORATORYCLIA [id number] [address] [place] PO2 / FIO2 RATIO 169 mmHg Low >300 [facility] Comment on above: Order Comment: Speci men Type: ARTERIAL BLOOD SPECIMENOrdering Facility: [facility] Address: [address] [place] [address] Performed By: #### A LLBG ####[facility] LABORATORYCLIA [id number] [place] [address] Potassium [Moles/Vol] 3.3 mmol/L Low 3.5-5.0 [facility] Comment on above: Order Comment: Speci men Type: ARTERIAL BLOOD SPECIMENOrdering Facility: [facility] Address: [address] [place] [address] Performed By: #### A LLBG ####[facility] LABORATORYCLIA [id number] [address] SET VENTILATOR RESPIRATORY RATE (BPM) 20 BPM Normal [facility] Comment on above: Order Comment: Speci men Type: ARTERIAL BLOOD SPECIMENOrdering Facility: [facility] Address: [address] [place] [address] Performed By: #### A LLBG ####[facility] LABORATORYCLIA [id number] [address] STATES [facility] Sodium [Moles/Vol] 135 mmol/L Low 136-144 [facility] Comment on above: Order Comment: Speci men Type: ARTERIAL BLOOD SPECIMENOrdering Facility: [facility] Address: [address] [place] [address] Performed By: #### A LLBG ####[facility] LABORATORYCLIA [id number] [address] CBC panel Auto (Bld)on 04-11 Erythrocyte distribution width (RBC) [Ratio] 14.9 % Normal 11.5-15.0 [facility] Comment on above: Order Comment: Speci men Type: BLOOD SPECIMENOrdering Facility: [facility] Address: [address] [place] [address] Performed By: #### 5 8410-2 ####[facility] LABORATORYCLIA [id number] [address] Hematocrit (Bld) [Volume fraction] 21.3 % Low 39.0-51.0 [facility] Comment on above: Order Comment: Speci men Type: BLOOD SPECIMENOrdering Facility: [facility] Address: [address] [place] [address] Performed By: #### 5 8410-2 ####[facility] LABORATORYCLIA [id number] [address] STATES OF [facility] Hemoglobin (Bld) [Mass/Vol] 6.5 g/dL Low 13.0-17.0 [facility] Comment on above: Order Comment: Speci men Type: BLOOD SPECIMENOrdering Facility: [facility] Address: [address] [place] [address] Performed By: #### 5 8410-2 ####[facility] LABORATORYCLIA [id number] [address] STATES [facility] MCH (RBC) [Entitic mass] 26.2 pg Normal 26.0-34.0 [facility] Comment on above: Order Comment: Speci men Type: BLOOD SPECIMENOrdering Facility: [facility] Address: [address] [place] [address] Performed By: #### 5 8410-2 ####[facility] LABORATORYCLIA [id number] [address] MCHC (RBC) [Mass/Vol] 30.5 g/dL Normal 30.5-36.0 [facility] Comment on above: Order Comment: Speci men Type: BLOOD SPECIMENOrdering Facility: [facility] Address: [address] [place] [address] Performed By: #### 5 8410-2 ####[facility] LABORATORYCLIA [id number] [address] MCV (RBC) [Entitic vol] 85.9 fL Normal 80.0-100.0 [facility] Comment on above: Order Comment: Speci men Type: BLOOD SPECIMENOrdering Facility: [facility] Address: [address] [place] [address] Performed By: #### 5 8410-2 ####[facility] LABORATORYCLIA [id number] [address] Nucleated RBC (Bld) [#/Vol] 10*3/uL Normal <0.01 [facility] Comment on above: Order Comment: Speci men Type: BLOOD SPECIMENOrdering Facility: [facility] Address: [address] [place] [address] Performed By: #### 5 8410-2 ####[facility] LABORATORYCLIA [id number] [address] Platelet mean volume (Bld) [Entitic vol] 10.5 fL Normal 9.0-12.7 [facility] Comment on above: Order Comment: Speci men Type: BLOOD SPECIMENOrdering Facility: [facility] Address: [address] [place] [address] Performed By: #### 5 8410-2 ####[facility] LABORATORYCLIA [id number] [address] [place] Platelets (Bld) [#/Vol] 190 10*3/uL Normal 150-400 [facility] Comment on above: Order Comment: Speci men Type: BLOOD SPECIMENOrdering Facility: [facility] Address: [address] [place] [address] Performed By: #### 5 8410-2 ####[facility] LABORATORYCLIA [id number] [address] [place] RBC (Bld) [#/Vol] 2.48 10*6/uL Low 4.20-6.00 [facility] Comment on above: Order Comment: Speci men Type: BLOOD SPECIMENOrdering Facility: [facility] Address: [address] [place] [address] Performed By: #### 5 8410-2 ####[facility] LABORATORYCLIA [id number] [address] [place] WBC (Bld) [#/Vol] 7.10 10*3/uL Normal 3.70-11.00 [facility] Comment on above: Order Comment: Speci men Type: BLOOD SPECIMENOrdering Facility: [facility] Address: [address] [place] [address] Performed By: #### 5 8410-2 ####[facility] LABORATORYCLIA [id number] [address] [place] CONSULT PROGon 04-11-2025 CONSULT PROG Normal [facility] CONSULT PROG Normal [facility] CRP SerPl[facility]2025 CRP [Mass/Vol] 15.8 mg/dL High <0.9 [facility] Comment on above: Order Comment: Speci men Type: BLOOD SPECIMENOrdering Facility: [facility] Address: [address] [place] [address] Performed By: #### 1 9123-9, 14072-9, 1988-01, ####[facility] LABORATORYCLIA [id number] [address] [place] CHEST WO IVCONon 04-11-[address] CHEST WO IVCON Normal [facility] Hgb Bld[facility] 04-11-2025 Hemoglobin (Bld) [Mass/Vol] 7.8 g/dL Low 13.0-17.0 [facility] Comment on above: Order Comment: Speci men Type: BLOOD SPECIMENOrdering Facility: [facility] Address: [address] [place] [address] Performed By: #### 7 18-7 ####[facility] LABORATORYCLIA [id number] [address] [place] Magnesium [facility] 04[facility]11 Magnesium [Mass/Vol] 2.6 mg/dL High 1.7-2.3 [facility] Comment on above: Order Comment: Speci men Type: BLOOD SPECIMENOrdering Facility: [facility] Address: [address] [place] [address] Performed By: #### 1 9123-9, 21133-0, 1988-01, ####[facility] LABORATORYCLIA [id number] [address] [place] NT-proBNP SerPl-ncon 04-11 Natriuretic peptide.B prohormone N-Terminal [Mass/Vol] 71099 pg/mL High <125 [facility] Comment on above: Order Comment: Speci men Type: BLOOD SPECIMENOrdering Facility: [facility] Address: [address] [place] [address] Performed By: #### 1 9123-9, 64656-7, 1988-01, ####[facility] LABORATORYCLIA [id number] [place] [id number] [place] NURSING PROGon 04-11-2025 NURSING PROG Normal [facility] Renal function 2000 panelon 04-11-2025 Albumin [Mass/Vol] 3.0 g/dL Low 3.9-4.9 [facility] Comment on above: Order Comment: Speci men Type: BLOOD SPECIMENOrdering Facility: [facility] Address: [address] [place] [address] Performed By: #### 1 9123-9, 34014-8, 1988-01, ####[facility] LABORATORYCLIA [id number] [place] [address] [place] Anion gap [Moles/Vol] 20 mmol/L High 8-15 [facility] Comment on above: Order Comment: Speci men Type: BLOOD SPECIMENOrdering Facility: [facility] Address: [address] [place] [address] Performed By: #### 1 9123-9, 64941-1, 1988-01, ####[facility] LABORATORYCLIA [id number] [place] [address] [place] Calcium [Mass/Vol] 7.9 mg/dL Low 8.5-10.2 [facility] Comment on above: Order Comment: Speci men Type: BLOOD SPECIMENOrdering Facility: [facility] Address: [address] [place] [address] Performed By: #### 1 9123-9, 97036-9, 1988-01, ####[facility] LABORATORYCLIA [id number] [place] [id number] [place] Chloride [Moles/Vol] 96 mmol/L Low 98-107 [facility] Comment on above: Order Comment: Speci men Type: BLOOD SPECIMENOrdering Facility: [facility] Address: [address] [place] [address] Performed By: #### 1 9123-9, 05818-5, ####[facility] COUNTYIA [id number] [place] [address] [place] CO2 [Moles/Vol] 21 mmol/L Low 22-30 [facility] Comment on above: Order Comment: Speci men Type: BLOOD SPECIMENOrdering Facility: [facility] Address: [address] [place] [address] Performed By: #### 1 9123-9, 39430-1, ####[facility] COUNTYIA [id number] [place] [address] [place] Creatinine [Mass/Vol] 4.45 mg/dL High 0.73-1.22 [facility] Comment on above: Order Comment: Speci men Type: BLOOD SPECIMENOrdering Facility: [facility] Address: [address] [place] [address] Performed By: #### 1 9123-9, 36387-8, ####[facility] COUNTYIA [id number] [place] [address] [place] eGFRcr SerPlBld CKD-EPI 2020 13 mL/min/1.73m??? Low >=60 [facility] Comment on above: Order Comment: Speci men Type: BLOOD SPECIMENOrdering Facility: [facility] Address: [address] [place] [address] Result Comment: Mary Kay mated Glomerular Filtration Rate (eGFR) is calculated using the 2020 CKD-EPI creatinine equation. This equation utilizes serum creatinine, sex, and age as parameters. The creatinine assay has traceable calibration to isotope dilution-mass spectrometry. Refer to KDIGO guidelines for clinical interpretation. In patients with unstable renal function, e.g. those with acute kidney injury, the eGFR may not accurately reflect actual GFR. Performed By: #### 1 9123-9, 34083-5, ####[facility] LABORATORYCLIA [id number] [place] [address] [place] Glucose [Mass/Vol] 135 mg/dL High 74-99 [facility] Comment on above: Order Comment: Specmarleny men Type: BLOOD SPECIMENOrdering Facility: [facility] Address: [address] [place] [address] Result Comment: The [place] [employer] (ADA) provides guidance for cutoff values for fasting glucose and random glucose. The ADA defines fasting as no caloric intake for at least 8 hours. Fasting plasma glucose results between 100 to 125 mg/dL indicate increased risk for diabetes (prediabetes).Fasting plasma glucose results greater than or equal to 126 mg/dL meet the criteria for diagnosis of diabetes. In the absence of unequivocal hyperglycemia, results should be confirmed by repeat testing. In a patient with classic symptoms of hyperglycemia or hyperglycemic crisis, random plasma glucose results greater than or equal to 200 mg/dL meet the criteria for diagnosis of diabetes.Reference: Standards of Medical Care in Diabetes 2016, [place] [employer]. Diabetes Care. 2016.39(Suppl 1). Performed By: #### 1 9123-9, 99378-6, ####[facility] LABORATORYCLIA [id number] [place] [address] [place] Phosphate [Mass/Vol] 5.5 mg/dL High 2.7-4.8 [facility] Comment on above: Order Comment: Jose Cruz johnson Type: BLOOD SPECIMENOrdering Facility: [facility] Address: [address] [place] [address] Performed By: #### 1 9123-9, 50197-8, ####[facility] LABORATORYCLIA [id number] [place] [address] [place] Potassium [Moles/Vol] 3.3 mmol/L Low 3.7-5.1 [facility] Comment on above: Order Comment: Jose Cruz johnson Type: BLOOD SPECIMENOrdering Facility: [facility] Address: [address] [place] [address] Performed By: #### 1 9123-9, 89070-1, ####[facility] LABORATORYCLIA [id number] [address] [place] Sodium [Moles/Vol] 137 mmol/L Normal 136-144 [facility] Comment on above: Order Comment: Speci men Type: BLOOD SPECIMENOrdering Facility: [facility] Address: [address] [place] [address] Performed By: #### 1 9123-9, 01572-2, 1988-01, ####[facility] LABORATORYCLIA [id number] [place] [address] [place] Urea nitrogen [Mass/Vol] 41 mg/dL High 9-24 [facility] Comment on above: Order Comment: Speci men Type: BLOOD SPECIMENOrdering Facility: [facility] Address: [address] [place] [address] Performed By: #### 1 9123-9, 37395-1, 1988-01, ####[facility] LABORATORYCLIA [id number] [address] [place] Resp path 12b Pnl Spec JUAN F+p robeon 04-11-2025 Respiratory pathogens DNA and RNA 12b panel JUAN F+probe (Unsp spec) Normal [facility] Comment on above: Performed By: #### 6 0566-7 ####[facility] LABORATORYCLIA [id number] [address] [place] TYPE + SCREENon 04-11-2025 ABO O Normal [facility] Comment on above: Order Comment: Speci men Type: BLOOD SPECIMENOrdering Facility: [facility] Address: [address] [place] [address] Performed By: #### T SCR ####[facility] BLOOD BANKCLIA [id number] [address] [place] Rh Nom (Bld) Positive Normal [facility] Comment on above: Order Comment: Speci men Type: BLOOD SPECIMENOrdering Facility: [facility] Address: [address] [place] [address] Performed By: #### T SCR ####[facility] BLOOD BANKCLIA [id number] [address] STATES OF [facility] TYPE AND SCREEN EXPIRATION 04/14/2025 23:59 Normal [facility] Comment on above: Order Comment: Speci men Type: BLOOD SPECIMENOrdering Facility: [facility] Address: [address] [place] [address] Performed By: #### T SCR ####[facility] BLOOD BANKCLIA [id number] [address] STATES OF [facility] XR ABDOMEN 1V SUPINEon 04-11 XR ABDOMEN 1V SUPINE Normal [facility] XR CHEST 1V FRONTALon 2024 XR CHEST 1V FRONTAL Normal [facility] XR CHEST 1V FRONTAL Normal [facility] aPTT PPPon 04-11-2025 aPTT Coag (PPP) [Time] 53.6 s High 23.0-32.4 [facility] Comment on above: Order Comment: Speci men Type: BLOOD SPECIMENOrdering Facility: [facility] Address: [address] [place] [address] Performed By: #### 1 4979-9 ####[facility] LABORATORYCLIA [id number] [address] BETINA BY IFA SCREENon 04-10-20 Nuclear Ab Ql (S) Negative Normal Negative [facility] Comment on above: Order Comment: Speci men Type: BLOOD SPECIMENOrdering Facility: [facility] Address: [address] [place] [address] Result Comment: Anti -nuclear antibody test is used as an aid in diagnosis of systemic autoimmune diseases. Where positive and clinically warranted, follow-up using disease-specific testing is recommended. Low positive titers are not uncommon with advanced age, certain chronic infections, and malignancies among others.Test methodology: Indirect fluorescence immunoassay (IFA) using HEp-2 cells. Performed By: #### A NAIFS ####[facility] LABCLIA [id number] [address] [place] ARTERIAL BLOOD GASESon 04-10 Base deficit (BldA) [Moles/Vol] -5 mmol/L Low -2-0 [facility] Comment on above: Order Comment: Speci men Type: ARTERIAL BLOOD SPECIMENOrdering Facility: [facility] Address: [address] [place] [address] Performed By: #### A LLBG ####[facility] LABORATORYCLIA [id number] [address] Body temperature 97.7 [degF] Normal [facility] Comment on above: Order Comment: Speci men Type: ARTERIAL BLOOD SPECIMENOrdering Facility: [facility] Address: [address] [place] [address] Performed By: #### A LLBG ####[facility] LABORATORYCLIA [id number] [address] Calcium.ionized (BldV) [Mass/Vol] 1.02 mmol/L Low 1.08-1.30 [facility] Comment on above: Order Comment: Speci men Type: ARTERIAL BLOOD SPECIMENOrdering Facility: [facility] Address: [address] [place] [address] Performed By: #### A LLBG ####[facility] LABORATORYCLIA [id number] [address] Calcium.ionized adjusted to pH 7.4 (BldA) [Moles/Vol] 0.99 mmol/L Low 1.08-1.30 [facility] Comment on above: Order Comment: Speci men Type: ARTERIAL BLOOD SPECIMENOrdering Facility: [facility] Address: [address] [place] [address] Performed By: #### A LLBG ####[facility] LABORATORYCLIA [id number] [address] Carboxyhemoglobin (BldA) [Mass fraction] 1.2 % Normal 0.0-2.0 [facility] Comment on above: Order Comment: Speci men Type: ARTERIAL BLOOD SPECIMENOrdering Facility: [facility] Address: [address] [place] [address] Result Comment: Carb oxyhemoglobin Reference Range for Smokers: 2.0-8.0% Performed By: #### A LLBG ####[facility]ORATORYCLIA [id number] [address] STATES OF [facility] Chloride [Moles/Vol] 98 mmol/L Normal 97-105 [facility] Comment on above: Order Comment: Speci men Type: ARTERIAL BLOOD SPECIMENOrdering Facility: [facility] Address: [address] [place] [address] Performed By: #### A LLBG ####[facility]ORATORYCLIA [id number] [address] [place] CO2 (Bld) [Partial pressure] 38 mm Hg Normal 36-46 [facility] Comment on above: Order Comment: Speci men Type: ARTERIAL BLOOD SPECIMENOrdering Facility: [facility] Address: [address] [place] [address] Performed By: #### A LLBG ####[facility] LABORATORYCLIA [id number] [address] CO2 adjusted to patient's actual temperature (Bld) [Partial pressure] 37 mmHg Normal 36-46 [facility] Comment on above: Order Comment: Speci men Type: ARTERIAL BLOOD SPECIMENOrdering Facility: [facility] Address: [address] [place] [address] Performed By: #### A LLBG ####[facility]ORATORYCLIA [id number] [address] [place] FIO2 80 % Normal [facility] Comment on above: Order Comment: Speci men Type: ARTERIAL BLOOD SPECIMENOrdering Facility: [facility] Address: [address] [place] [address] Performed By: #### A LLBG ####[facility]ORATORYCLIA [id number] [address] [place] Glucose [Mass/Vol] 129 mg/dL High 60-105 [facility] Comment on above: Order Comment: Speci men Type: ARTERIAL BLOOD SPECIMENOrdering Facility: [facility] Address: [address] [place] [address] Performed By: #### A LLBG ####[facility]ORATORYCLIA [id number] [address] [place] HCO3 (Bld) [Moles/Vol] 20 mmol/L Low 22-26 [facility] Comment on above: Order Comment: Speci men Type: ARTERIAL BLOOD SPECIMENOrdering Facility: [facility] Address: [address] [place] [address] Performed By: #### A LLBG ####[facility] LABORATORYCLIA [id number] [address] [place] Hematocrit (Bld) [Volume fraction] 22.5 % Low 39.0-51.0 [facility] Comment on above: Order Comment: Speci men Type: ARTERIAL BLOOD SPECIMENOrdering Facility: [facility] Address: [address] [place] [address] Performed By: #### A LLBG ####[facility] LABORATORYCLIA [id number] [address] [place] Hemoglobin (Bld) [Mass/Vol] 7.2 g/dL Low 13.0-17.0 [facility] Comment on above: Order Comment: Speci men Type: ARTERIAL BLOOD SPECIMENOrdering Facility: [facility] Address: [address] [place] [address] Performed By: #### A LLBG ####[facility] LABORATORYCLIA [id number] [address] [place] INHALED TIDAL VOLUME (ML) 450 Normal [facility] Comment on above: Order Comment: Speci men Type: ARTERIAL BLOOD SPECIMENOrdering Facility: [facility] Address: [address] [place] [address] Performed By: #### A LLBG ####[facility] LABORATORYCLIA [id number] [address] [place] Lactate [Moles/Vol] 0.9 mmol/L Normal 0.5-2.2 [facility] Comment on above: Order Comment: Speci men Type: ARTERIAL BLOOD SPECIMENOrdering Facility: [facility] Address: [address] [place] [address] Performed By: #### A LLBG ####[facility]ORATORYCLIA [id number] [address] Methemoglobin (Bld) [Mass fraction] 1.2 % Normal 0.0-1.5 [facility] Comment on above: Order Comment: Speci men Type: ARTERIAL BLOOD SPECIMENOrdering Facility: [facility] Address: [address] [place] [address] Performed By: #### A LLBG ####[facility]ORATORYCLIA [id number] [address] O2 THERAPY VENT=Ventilator Normal [facility] Comment on above: Order Comment: Speci men Type: ARTERIAL BLOOD SPECIMENOrdering Facility: [facility] Address: [address] [place] [address] Performed By: #### A LLBG ####[facility] LABORATORYCLIA [id number] [address] [place] Oxygen (Bld) [Partial pressure] 142 mm Hg High 85-95 [facility] Comment on above: Order Comment: Speci men Type: ARTERIAL BLOOD SPECIMENOrdering Facility: [facility] Address: [address] [place] [address] Performed By: #### A LLBG ####[facility] LABORATORYCLIA [id number] [address] Oxygen adjusted to patient's actual temperature (Bld) [Partial pressure] 139 mmHg High 85-95 [facility] Comment on above: Order Comment: Speci men Type: ARTERIAL BLOOD SPECIMENOrdering Facility: [facility] Address: [address] [place] [address] Performed By: #### A LLBG ####[facility] LABORATORYCLIA [id number] [address] [place] Oxyhemoglobin (BldA) [Mass fraction] 97 % Normal 95-98 [facility] Comment on above: Order Comment: Speci men Type: ARTERIAL BLOOD SPECIMENOrdering Facility: [facility] Address: [address] [place] [address] Performed By: #### A LLBG ####[facility]ORATORYCLIA [id number] [address] PEEP/CPAP 16 cmH2O Normal [facility] Comment on above: Order Comment: Speci men Type: ARTERIAL BLOOD SPECIMENOrdering Facility: [facility] Address: [address] [place] [address] Performed By: #### A LLBG ####[facility]ORATORYCLIA [id number] [address] [place] pH (Bld) 7.35 [pH] Normal 7.35-7.45 [facility] Comment on above: Order Comment: Speci men Type: ARTERIAL BLOOD SPECIMENOrdering Facility: [facility] Address: [address] [place] [address] Performed By: #### A LLBG ####[facility] LABORATORYCLIA [id number] [address] pH adjusted to patient's actual temperature (Bld) 7.36 Normal 7.35-7.45 [facility] Comment on above: Order Comment: Speci men Type: ARTERIAL BLOOD SPECIMENOrdering Facility: [facility] Address: [address] [place] [address] Performed By: #### A LLBG ####[facility] LABORATORYCLIA [id number] [address] [place] PO2 / FIO2 RATIO 178 mmHg Low >300 [facility] Comment on above: Order Comment: Speci men Type: ARTERIAL BLOOD SPECIMENOrdering Facility: [facility] Address: [address] [place] [address] Performed By: #### A LLBG ####[facility] LABORATORYCLIA [id number] [address] Potassium [Moles/Vol] 3.8 mmol/L Normal 3.5-5.0 [facility] Comment on above: Order Comment: Speci men Type: ARTERIAL BLOOD SPECIMENOrdering Facility: [facility] Address: [address] [place] [address] Performed By: #### A LLBG ####[facility] LABORATORYCLIA [id number] [address] SET VENTILATOR RESPIRATORY RATE (BPM) 20 BPM Normal [facility] Comment on above: Order Comment: Speci men Type: ARTERIAL BLOOD SPECIMENOrdering Facility: [facility] Address: [address] [place] [address] Performed By: #### A LLBG ####[facility] LABORATORYCLIA [id number] [place] [address] [place] Sodium [Moles/Vol] 131 mmol/L Low 136-144 [facility] Comment on above: Order Comment: Speci men Type: ARTERIAL BLOOD SPECIMENOrdering Facility: [facility] Address: [address] [place] [address] Performed By: #### A LLBG ####[facility] LABORATORYCLIA [id number] [address] [place] C3 SerPl-mCncon 04-10-2025 Complement C3 [Mass/Vol] 128 mg/dL Normal 86-166 [facility] Comment on above: Order Comment: Speci men Type: BLOOD SPECIMENOrdering Facility: [facility] Address: [address] [place] [address] Performed By: #### 4 485-9, 4498-2 ####[facility] LABCLIA [id number] [place] [address] [place] C4 SerPl-mCncon 04-10-2025 Complement C4 [Mass/Vol] 27 mg/dL Normal 13-46 [facility] Comment on above: Order Comment: Speci men Type: BLOOD SPECIMENOrdering Facility: [facility] Address: [address] [place] [address] Performed By: #### 4 485-9, 4498-2 ####[facility] LABCLIA [id number] [place] [address] [place] CBC panel Auto (Bld)on 04-10 Erythrocyte distribution width (RBC) [Ratio] 14.6 % Normal 11.5-15.0 [facility] Comment on above: Order Comment: Speci men Type: BLOOD SPECIMENOrdering Facility: [facility] Address: [address] [place] [address] Performed By: #### 5 8410-2 ####[facility] LABORATORYCLIA [id number] [address] Hematocrit (Bld) [Volume fraction] 24.0 % Low 39.0-51.0 [facility] Comment on above: Order Comment: Speci men Type: BLOOD SPECIMENOrdering Facility: [facility] Address: [address] [place] [address] Performed By: #### 5 8410-2 ####[facility] LABORATORYCLIA [id number] [address] STATES OF [facility] Hemoglobin (Bld) [Mass/Vol] 7.1 g/dL Low 13.0-17.0 [facility] Comment on above: Order Comment: Speci men Type: BLOOD SPECIMENOrdering Facility: [facility] Address: [address] [place] [address] Performed By: #### 5 8410-2 ####[facility] LABORATORYCLIA [id number] [address] [place] MCH (RBC) [Entitic mass] 25.7 pg Low 26.0-34.0 [facility] Comment on above: Order Comment: Speci men Type: BLOOD SPECIMENOrdering Facility: [facility] Address: [address] [place] [address] Performed By: #### 5 8410-2 ####[facility] LABORATORYCLIA [id number] [address] [place] MCHC (RBC) [Mass/Vol] 29.6 g/dL Low 30.5-36.0 [facility] Comment on above: Order Comment: Speci men Type: BLOOD SPECIMENOrdering Facility: [facility] Address: [address] [place] [address] Performed By: #### 5 8410-2 ####[facility] LABORATORYCLIA [id number] [address] MCV (RBC) [Entitic vol] 87.0 fL Normal 80.0-100.0 [facility] Comment on above: Order Comment: Speci men Type: BLOOD SPECIMENOrdering Facility: [facility] Address: [address] [place] [address] Performed By: #### 5 8410-2 ####[facility] LABORATORYCLIA [id number] [address] OF [place] Nucleated RBC (Bld) [#/Vol] 10*3/uL Normal <0.01 [facility] Comment on above: Order Comment: Speci men Type: BLOOD SPECIMENOrdering Facility: [facility] Address: [address] [place] [address] Performed By: #### 5 8410-2 ####[facility] LABORATORYCLIA [id number] [address] Platelet mean volume (Bld) [Entitic vol] 10.6 fL Normal 9.0-12.7 [facility] Comment on above: Order Comment: Speci men Type: BLOOD SPECIMENOrdering Facility: [facility] Address: [address] [place] [address] Performed By: #### 5 8410-2 ####[facility] LABORATORYCLIA [id number] [address] [place] Platelets (Bld) [#/Vol] 221 10*3/uL Normal 150-400 [facility] Comment on above: Order Comment: Speci men Type: BLOOD SPECIMENOrdering Facility: [facility] Address: [address] [place] [address] Performed By: #### 5 8410-2 ####[facility] LABORATORYCLIA [id number] [address] [place] RBC (Bld) [#/Vol] 2.76 10*6/uL Low 4.20-6.00 [facility] Comment on above: Order Comment: Speci men Type: BLOOD SPECIMENOrdering Facility: [facility] Address: [address] [place] [address] Performed By: #### 5 8410-2 ####[facility] LABORATORYCLIA [id number] [place] [address] [place] WBC (Bld) [#/Vol] 8.97 10*3/uL Normal 3.70-11.00 [facility] Comment on above: Order Comment: Speci men Type: BLOOD SPECIMENOrdering Facility: [facility] Address: [address] [place] [address] Performed By: #### 5 8410-2 ####[facility] LABORATORYCLIA [id number] [place] [address] [place] CONSULT PROGon 04-10-2025 CONSULT PROG Normal [facility] HBV surface Ag Ser Qlon 03-21 HBV surface Ag Ql (S) Non-Reactive Normal Nonreactive [facility] Comment on above: Order Comment: Speci men Type: BLOOD SPECIMENOrdering Facility: [facility] Address: [address] [place] [address] Performed By: #### 5 195-3 ####[facility] LABORATORYCLIA [id number] [place] [address] [place] Myeloperoxidase Ab Ser-aCnco n 04-10-2025 Myeloperoxidase Ab Qn (S) <0.2 Normal <1.0 [facility] Comment on above: Order Comment: Speci men Type: BLOOD SPECIMENOrdering Facility: [facility] Address: [address] [place] [address] Performed By: #### 6 969-0, ANCAC ####[facility] LABCLIA [id number] [place] [address] [place] NUTRITIONon 04-10-2025 NUTRITION Normal [facility] PROTEINASE 3 ANTIBODYon 03-21 Proteinase 3 Ab Qn (S) <0.2 Normal <1.0 [facility] Comment on above: Order Comment: Speci men Type: BLOOD SPECIMENOrdering Facility: [facility] Address: [address] [place] [address] Performed By: #### 6 969-0, [facility] ####[facility] LABCLIA [id number] [place] [id number] [place] Renal function 2000 panelon 04-10-2025 Albumin [Mass/Vol] 3.1 g/dL Low 3.9-4.9 [facility] Comment on above: Order Comment: Speci men Type: BLOOD SPECIMENOrdering Facility: [facility] Address: [address] [place] [address] Performed By: #### 2 4362-6 ####[facility] LABORATORYCLIA [id number] [place] [address] [place] Anion gap [Moles/Vol] 20 mmol/L High 8-15 [facility] Comment on above: Order Comment: Speci men Type: BLOOD SPECIMENOrdering Facility: [facility] Address: [address] [place] [address] Performed By: #### 2 4362-6 ####[facility] LABORATORYCLIA [id number] [place] [address] [place] Calcium [Mass/Vol] 7.9 mg/dL Low 8.5-10.2 [facility] Comment on above: Order Comment: Speci men Type: BLOOD SPECIMENOrdering Facility: [facility] Address: [address] [place] [address] Performed By: #### 2 4362-6 ####[facility]ORATORYCLIA [id number] [place] [address] [place] Chloride [Moles/Vol] 92 mmol/L Low 98-107 [facility] Comment on above: Order Comment: Speci men Type: BLOOD SPECIMENOrdering Facility: [facility] Address: [address] [place] [address] Performed By: #### 2 4362-6 ####[facility]ORATORYCLIA [id number] [place] [address] [place] CO2 [Moles/Vol] 20 mmol/L Low 22-30 [facility] Comment on above: Order Comment: Speci men Type: BLOOD SPECIMENOrdering Facility: [facility] Address: [address] [place] [address] Performed By: #### 2 4362-6 ####[facility] LABORATORYCLIA [id number] [place] [address] [place] Creatinine [Mass/Vol] 4.95 mg/dL High 0.73-1.22 [facility] Comment on above: Order Comment: Speci men Type: BLOOD SPECIMENOrdering Facility: [facility] Address: [address] [place] [address] Performed By: #### 2 4362-6 ####[facility] LABORATORYCLIA [id number] [address] [place] eGFRcr SerPlBld CKD-EPI 2020 12 mL/min/1.73m??? Low >=60 [facility] Comment on above: Order Comment: Speci men Type: BLOOD SPECIMENOrdering Facility: [facility] Address: [address] [place] [address] Result Comment: Mary Kay mated Glomerular Filtration Rate (eGFR) is calculated using the 2020 CKD-EPI creatinine equation. This equation utilizes serum creatinine, sex, and age as parameters. The creatinine assay has traceable calibration to isotope dilution-mass spectrometry. Refer to KDIGO guidelines for clinical interpretation. In patients with unstable renal function, e.g. those with acute kidney injury, the eGFR may not accurately reflect actual GFR. Performed By: #### 2 4362-6 ####[facility] LABORATORYCLIA [id number] [address] [place] Glucose [Mass/Vol] 122 mg/dL High 74-99 [facility] Comment on above: Order Comment: Speci men Type: BLOOD SPECIMENOrdering Facility: [facility] Address: [address] [place] [address] Result Comment: The [place] Diabetes [employer] (ADA) provides guidance for cutoff values for fasting glucose and random glucose. The ADA defines fasting as no caloric intake for at least 8 hours. Fasting plasma glucose results between 100 to 125 mg/dL indicate increased risk for diabetes (prediabetes).Fasting plasma glucose results greater than or equal to 126 mg/dL meet the criteria for diagnosis of diabetes. In the absence of unequivocal hyperglycemia, results should be confirmed by repeat testing. In a patient with classic symptoms of hyperglycemia or hyperglycemic crisis, random plasma glucose results greater than or equal to 200 mg/dL meet the criteria for diagnosis of diabetes.Reference: Standards of Medical Care in Diabetes 2016, [place] [employer]. Diabetes Care. 2016.39(Suppl 1). Performed By: #### 2 4362-6 ####[facility] LABORATORYCLIA [id number] [place] [address] [place] Phosphate [Mass/Vol] 7.1 mg/dL High 2.7-4.8 [facility] Comment on above: Order Comment: Speci men Type: BLOOD SPECIMENOrdering Facility: [facility] Address: [address] [place] [address] Performed By: #### 2 4362-6 ####[facility] LABORATORYCLIA [id number] [place] [address] [place] Potassium [Moles/Vol] 3.9 mmol/L Normal 3.7-5.1 [facility] Comment on above: Order Comment: Speci men Type: BLOOD SPECIMENOrdering Facility: [facility] Address: [address] [place] [address] Performed By: #### 2 4362-6 ####[facility] LABORATORYCLIA [id number] [place] [address] [place] Sodium [Moles/Vol] 132 mmol/L Low 136-144 [facility] Comment on above: Order Comment: Speci men Type: BLOOD SPECIMENOrdering Facility: [facility] Address: [address] [place] [address] Performed By: #### 2 4362-6 ####[facility] LABORATORYCLIA [id number] [place] [address] [place] Urea nitrogen [Mass/Vol] 54 mg/dL High 9-24 [facility] Comment on above: Order Comment: Speci men Type: BLOOD SPECIMENOrdering Facility: [facility] Address: [address] [place] [address] Performed By: #### 2 4362-6 ####[facility] LABORATORYCLIA [id number] [place] [id number] [place] US KIDNEY/BLADDERon 04-10-20 25 US KIDNEY/BLADDER Normal [facility] XR CHEST 1V FRONTALon 2024 XR CHEST 1V FRONTAL Normal [facility] aPTT PPPon 04-10-2025 aPTT Coag (PPP) [Time] 56.6 s High 23.0-32.4 [facility] Comment on above: Order Comment: Speci men Type: BLOOD SPECIMENOrdering Facility: [facility] Address: [address] [place] [address] Performed By: #### 1 4979-9 ####[facility] LABORATORYCLIA [id number] [address] aPTT Coag (PPP) [Time] 63.6 s High 23.0-32.4 [facility] Comment on above: Order Comment: Speci men Type: BLOOD SPECIMENOrdering Facility: [facility] Address: [address] [place] [address] Performed By: #### 1 4979-9 ####[facility] LABORATORYCLIA [id number] [address] STATES OF [facility] aPTT Coag (PPP) [Time] 61.6 s High 23.0-32.4 [facility] Comment on above: Order Comment: Speci men Type: BLOOD SPECIMENOrdering Facility: [facility] Address: [address] [place] [address] Performed By: #### 1 4979-9 ####[facility] LABORATORYCLIA [id number] [address] OF [facility] ARTERIAL BLOOD GASESon 04-09 Base deficit (BldA) [Moles/Vol] -8 mmol/L Low -2-0 [facility] Comment on above: Order Comment: Speci men Type: ARTERIAL BLOOD SPECIMENOrdering Facility: [facility] Address: [address] [place] [address] Performed By: #### A LLBG ####[facility] LABORATORYCLIA [id number] [address] Body temperature 98.6 [degF] Normal [facility] Comment on above: Order Comment: Speci men Type: ARTERIAL BLOOD SPECIMENOrdering Facility: [facility] Address: [address] [place] [address] Performed By: #### A LLBG ####[facility] LABORATORYCLIA [id number] [address] [place] Calcium.ionized (BldV) [Mass/Vol] 1.10 mmol/L Normal 1.08-1.30 [facility] Comment on above: Order Comment: Speci men Type: ARTERIAL BLOOD SPECIMENOrdering Facility: [facility] Address: [address] [place] [address] Performed By: #### A LLBG ####[facility] LABORATORYCLIA [id number] [address] STATES OF [facility] Calcium.ionized adjusted to pH 7.4 (BldA) [Moles/Vol] 1.01 mmol/L Low 1.08-1.30 [facility] Comment on above: Order Comment: Speci men Type: ARTERIAL BLOOD SPECIMENOrdering Facility: [facility] Address: [address] [place] [address] Performed By: #### A LLBG ####[facility] LABORATORYCLIA [id number] [address] [place] Carboxyhemoglobin (BldA) [Mass fraction] 1.1 % Normal 0.0-2.0 [facility] Comment on above: Order Comment: Speci men Type: ARTERIAL BLOOD SPECIMENOrdering Facility: [facility] Address: [address] [place] [address] Result Comment: Carb oxyhemoglobin Reference Range for Smokers: 2.0-8.0% Performed By: #### A LLBG ####[facility] LABORATORYCLIA [id number] [address] [place] Chloride [Moles/Vol] 96 mmol/L Low 97-105 [facility] Comment on above: Order Comment: Speci men Type: ARTERIAL BLOOD SPECIMENOrdering Facility: [facility] Address: [address] [place] [address] Performed By: #### A LLBG ####[facility] LABORATORYCLIA [id number] [place] [address] [place] CO2 (Bld) [Partial pressure] 45 mm Hg Normal 36-46 [facility] Comment on above: Order Comment: Speci men Type: ARTERIAL BLOOD SPECIMENOrdering Facility: [facility] Address: [address] [place] [address] Performed By: #### A LLBG ####[facility] LABORATORYCLIA [id number] [address] STATES [facility] FIO2 100 % Normal [facility] Comment on above: Order Comment: Speci men Type: ARTERIAL BLOOD SPECIMENOrdering Facility: [facility] Address: [address] [place] [address] Performed By: #### A LLBG ####[facility] LABORATORYCLIA [id number] [address] [place] Glucose [Mass/Vol] 105 mg/dL Normal 60-105 [facility] Comment on above: Order Comment: Speci men Type: ARTERIAL BLOOD SPECIMENOrdering Facility: [facility] Address: [address] [place] [address] Performed By: #### A LLBG ####[facility] LABORATORYCLIA [id number] [place] [address] [place] HCO3 (Bld) [Moles/Vol] 19 mmol/L Low 22-26 [facility] Comment on above: Order Comment: Speci men Type: ARTERIAL BLOOD SPECIMENOrdering Facility: [facility] Address: [address] [place] [address] Performed By: #### A LLBG ####[facility] LABORATORYCLIA [id number] [place] [address] [place] Hematocrit (Bld) [Volume fraction] 24.2 % Low 39.0-51.0 [facility] Comment on above: Order Comment: Speci men Type: ARTERIAL BLOOD SPECIMENOrdering Facility: [facility] Address: [address] [place] [address] Performed By: #### A LLBG ####[facility] LABORATORYCLIA [id number] [place] [address] [place] Hemoglobin (Bld) [Mass/Vol] 7.8 g/dL Low 13.0-17.0 [facility] Comment on above: Order Comment: Speci men Type: ARTERIAL BLOOD SPECIMENOrdering Facility: [facility] Address: [address] [place] [address] Performed By: #### A LLBG ####[facility] LABORATORYCLIA [id number] [address] [place] INHALED TIDAL VOLUME (ML) 450 Normal [facility] Comment on above: Order Comment: Speci men Type: ARTERIAL BLOOD SPECIMENOrdering Facility: [facility] Address: [address] [place] [address] Performed By: #### A LLBG ####[facility] LABORATORYCLIA [id number] [place] [address] [place] Lactate [Moles/Vol] 2.5 mmol/L High 0.5-2.2 [facility] Comment on above: Order Comment: Speci men Type: ARTERIAL BLOOD SPECIMENOrdering Facility: [facility] Address: [address] [place] [address] Performed By: #### A LLBG ####[facility]ORATORYCLIA [id number] [place] [address] [place] Methemoglobin (Bld) [Mass fraction] 1.1 % Normal 0.0-1.5 [facility] Comment on above: Order Comment: Speci men Type: ARTERIAL BLOOD SPECIMENOrdering Facility: [facility] Address: [address] [place] [address] Performed By: #### A LLBG ####[facility]ORATORYCLIA [id number] [address] O2 THERAPY VENT=Ventilator Normal [facility] Comment on above: Order Comment: Speci men Type: ARTERIAL BLOOD SPECIMENOrdering Facility: [facility] Address: [address] [place] [address] Performed By: #### A LLBG ####[facility] LABORATORYCLIA [id number] [address] [place] Oxygen (Bld) [Partial pressure] 66 mm Hg Low 85-95 [facility] Comment on above: Order Comment: Speci men Type: ARTERIAL BLOOD SPECIMENOrdering Facility: [facility] Address: [address] [place] [address] Performed By: #### A LLBG ####[facility] LABORATORYCLIA [id number] [address] [place] Oxyhemoglobin (BldA) [Mass fraction] 86 % Low 95-98 [facility] Comment on above: Order Comment: Speci men Type: ARTERIAL BLOOD SPECIMENOrdering Facility: [facility] Address: [address] [place] [address] Performed By: #### A LLBG ####[facility] LABORATORYCLIA [id number] [address] [place] PEEP/CPAP 12 cmH2O Normal [facility] Comment on above: Order Comment: Speci men Type: ARTERIAL BLOOD SPECIMENOrdering Facility: [facility] Address: [address] [place] [address] Performed By: #### A LLBG ####[facility] LABORATORYCLIA [id number] [place] [address] [place] pH (Bld) 7.24 [pH] Low 7.35-7.45 [facility] Comment on above: Order Comment: Speci men Type: ARTERIAL BLOOD SPECIMENOrdering Facility: [facility] Address: [address] [place] [address] Performed By: #### A LLBG ####[facility] LABORATORYCLIA [id number] [address] [place] PO2 / FIO2 RATIO 66 mmHg Low >300 [facility] Comment on above: Order Comment: Speci men Type: ARTERIAL BLOOD SPECIMENOrdering Facility: [facility] Address: [address] [place] [address] Performed By: #### A LLBG ####[facility] LABORATORYCLIA [id number] [address] [place] Potassium [Moles/Vol] 3.8 mmol/L Normal 3.5-5.0 [facility] Comment on above: Order Comment: Speci men Type: ARTERIAL BLOOD SPECIMENOrdering Facility: [facility] Address: [address] [place] [address] Performed By: #### A LLBG ####[facility] LABORATORYCLIA [id number] [address] [place] SET VENTILATOR RESPIRATORY RATE (BPM) 20 BPM Normal [facility] Comment on above: Order Comment: Speci men Type: ARTERIAL BLOOD SPECIMENOrdering Facility: [facility] Address: [address] [place] [address] Performed By: #### A LLBG ####[facility] LABORATORYCLIA [id number] [place] [address] [place] Sodium [Moles/Vol] 135 mmol/L Low 136-144 [facility] Comment on above: Order Comment: Speci men Type: ARTERIAL BLOOD SPECIMENOrdering Facility: [facility] Address: [address] [place] [address] Performed By: #### A LLBG ####[facility] LABORATORYCLIA [id number] [address] [place] CASE MGT INIT ASSESon 2024 CASE MGT INIT ASSES Normal [facility] CBC panel Auto (Bld)on 04-09 Erythrocyte distribution width (RBC) [Ratio] 14.3 % Normal 11.5-15.0 [facility] Comment on above: Order Comment: Speci men Type: BLOOD SPECIMENOrdering Facility: [facility] Address: [address] [place] [address] Performed By: #### 5 8410-2 ####[facility] LABORATORYCLIA [id number] [address] Hematocrit (Bld) [Volume fraction] 23.8 % Low 39.0-51.0 [facility] Comment on above: Order Comment: Speci men Type: BLOOD SPECIMENOrdering Facility: [facility] Address: [address] [place] [address] Performed By: #### 5 8410-2 ####[facility] LABORATORYCLIA [id number] [address] OF [facility] Hemoglobin (Bld) [Mass/Vol] 7.5 g/dL Low 13.0-17.0 [facility] Comment on above: Order Comment: Speci men Type: BLOOD SPECIMENOrdering Facility: [facility] Address: [address] [place] [address] Performed By: #### 5 8410-2 ####[facility] LABORATORYCLIA [id number] [address] MCH (RBC) [Entitic mass] 27.1 pg Normal 26.0-34.0 [facility] Comment on above: Order Comment: Speci men Type: BLOOD SPECIMENOrdering Facility: [facility] Address: [address] [place] [address] Performed By: #### 5 8410-2 ####[facility] LABORATORYCLIA [id number] [address] MCHC (RBC) [Mass/Vol] 31.5 g/dL Normal 30.5-36.0 [facility] Comment on above: Order Comment: Speci men Type: BLOOD SPECIMENOrdering Facility: [facility] Address: [address] [place] [address] Performed By: #### 5 8410-2 ####[facility] LABORATORYCLIA [id number] [address] OF [facility] MCV (RBC) [Entitic vol] 85.9 fL Normal 80.0-100.0 [facility] Comment on above: Order Comment: Speci men Type: BLOOD SPECIMENOrdering Facility: [facility] Address: [address] [place] [address] Performed By: #### 5 8410-2 ####[facility] LABORATORYCLIA [id number] [address] Nucleated RBC (Bld) [#/Vol] 10*3/uL Normal <0.01 [facility] Comment on above: Order Comment: Speci men Type: BLOOD SPECIMENOrdering Facility: [facility] Address: [address] [place] [address] Performed By: #### 5 8410-2 ####[facility] LABORATORYCLIA [id number] [address] [place] Platelet mean volume (Bld) [Entitic vol] 10.7 fL Normal 9.0-12.7 [facility] Comment on above: Order Comment: Speci men Type: BLOOD SPECIMENOrdering Facility: [facility] Address: [address] [place] [address] Performed By: #### 5 8410-2 ####[facility] LABORATORYCLIA [id number] [address] [place] Platelets (Bld) [#/Vol] 176 10*3/uL Normal 150-400 [facility] Comment on above: Order Comment: Speci men Type: BLOOD SPECIMENOrdering Facility: [facility] Address: [address] [place] [address] Performed By: #### 5 8410-2 ####[facility] LABORATORYCLIA [id number] [address] [place] RBC (Bld) [#/Vol] 2.77 10*6/uL Low 4.20-6.00 [facility] Comment on above: Order Comment: Speci men Type: BLOOD SPECIMENOrdering Facility: [facility] Address: [address] [place] [address] Performed By: #### 5 8410-2 ####[facility] LABORATORYCLIA [id number] [address] [place] WBC (Bld) [#/Vol] 9.84 10*3/uL Normal 3.70-11.00 [facility] Comment on above: Order Comment: Speci men Type: BLOOD SPECIMENOrdering Facility: [facility] Address: [address] [place] [address] Performed By: #### 5 8410-2 ####[facility] LABORATORYCLIA [id number] [address] [place] CONSULTon 04-09-2025 CONSULT Normal [facility] Comprehensive metabolic 2000 panelon 04-09-2025 Albumin [Mass/Vol] 3.4 g/dL Low 3.9-4.9 [facility] Comment on above: Order Comment: Speci men Type: BLOOD SPECIMENOrdering Facility: [facility] Address: [address] [place] [address] Performed By: #### 2 4323-8 ####[facility] LABORATORYCLIA [id number] [place] [address] [place] ALP [Catalytic activity/Vol] 97 U/L Normal 38-113 [facility] Comment on above: Order Comment: Speci men Type: BLOOD SPECIMENOrdering Facility: [facility] Address: [address] [place] [address] Performed By: #### 2 4323-8 ####[facility] LABORATORYCLIA [id number] [address] [place] ALT With P-5'-P [Catalytic activity/Vol] 16 U/L Normal 10-54 [facility] Comment on above: Order Comment: Speci men Type: BLOOD SPECIMENOrdering Facility: [facility] Address: [address] [place] [address] Performed By: #### 2 4323-8 ####[facility] LABORATORYCLIA [id number] [address] Anion gap [Moles/Vol] 17 mmol/L High 8-15 [facility] Comment on above: Order Comment: Speci men Type: BLOOD SPECIMENOrdering Facility: [facility] Address: [address] [place] [address] Performed By: #### 2 4323-8 ####[facility] LABORATORYCLIA [id number] [place] [address] [place] AST With P-5'-P [Catalytic activity/Vol] 55 U/L High 14-40 [facility] Comment on above: Order Comment: Speci men Type: BLOOD SPECIMENOrdering Facility: [facility] Address: [address] [place] [address] Performed By: #### 2 4323-8 ####[facility] LABORATORYCLIA [id number] [place] [address] [place] Bilirubin [Mass/Vol] 0.5 mg/dL Normal 0.2-1.3 [facility] Comment on above: Order Comment: Speci men Type: BLOOD SPECIMENOrdering Facility: [facility] Address: [address] [place] [address] Performed By: #### 2 4323-8 ####[facility] LABORATORYCLIA [id number] [place] [address] [place] Calcium [Mass/Vol] 7.9 mg/dL Low 8.5-10.2 [facility] Comment on above: Order Comment: Speci men Type: BLOOD SPECIMENOrdering Facility: [facility] Address: [address] [place] [address] Performed By: #### 2 4323-8 ####[facility] LABORATORYCLIA [id number] [place] [address] [place] Chloride [Moles/Vol] 94 mmol/L Low 98-107 [facility] Comment on above: Order Comment: Speci men Type: BLOOD SPECIMENOrdering Facility: [facility] Address: [address] [place] [address] Performed By: #### 2 4323-8 ####[facility] LABORATORYCLIA [id number] [place] [address] [place] CO2 [Moles/Vol] 23 mmol/L Normal 22-30 [facility] Comment on above: Order Comment: Speci men Type: BLOOD SPECIMENOrdering Facility: [facility] Address: [address] [place] [address] Performed By: #### 2 4323-8 ####[facility]PITALCLIA [id number] [place] [id number] [facility] Creatinine [Mass/Vol] 2.73 mg/dL High 0.73-1.22 [facility] Comment on above: Order Comment: Speci men Type: BLOOD SPECIMENOrdering Facility: [facility] Address: [address] [place] [address] Performed By: #### 2 4323-8 ####[facility] LABORATORYCLIA [id number] [address] eGFRcr SerPlBld CKD-EPI 2020 24 mL/min/1.73m??? Low >=60 [facility] Comment on above: Order Comment: Speci men Type: BLOOD SPECIMENOrdering Facility: [facility] Address: [address] [place] [address] Result Comment: Mary Kay mated Glomerular Filtration Rate (eGFR) is calculated using the 2020 CKD-EPI creatinine equation. This equation utilizes serum creatinine, sex, and age as parameters. The creatinine assay has traceable calibration to isotope dilution-mass spectrometry. Refer to KDIGO guidelines for clinical interpretation. In patients with unstable renal function, e.g. those with acute kidney injury, the eGFR may not accurately reflect actual GFR. Performed By: #### 2 4323-8 ####[facility] LABORATORYCLIA [id number] [address] [place] Glucose [Mass/Vol] 126 mg/dL High 74-99 [facility] Comment on above: Order Comment: Speci alex Type: BLOOD SPECIMENOrdering Facility: [facility] Address: [address] [place] [address] Result Comment: The [place] [employer] (ADA) provides guidance for cutoff values for fasting glucose and random glucose. The ADA defines fasting as no caloric intake for at least 8 hours. Fasting plasma glucose results between 100 to 125 mg/dL indicate increased risk for diabetes (prediabetes).Fasting plasma glucose results greater than or equal to 126 mg/dL meet the criteria for diagnosis of diabetes. In the absence of unequivocal hyperglycemia, results should be confirmed by repeat testing. In a patient with classic symptoms of hyperglycemia or hyperglycemic crisis, random plasma glucose results greater than or equal to 200 mg/dL meet the criteria for diagnosis of diabetes.Reference: Standards of Medical Care in Diabetes 2016, [place] [employer]. Diabetes Care. 2016.39(Suppl 1). Performed By: #### 2 4323-8 ####[facility] LABORATORYCLIA [id number] [place] [address] [place] [facility] Potassium [Moles/Vol] 3.6 mmol/L Low 3.7-5.1 [facility] Comment on above: Order Comment: Jose Cruz johnson Type: BLOOD SPECIMENOrdering Facility: [facility] Address: [address] [place] [address] Performed By: #### 2 4323-8 ####[facility] LABORATORYCLIA [id number] [place] [address] [place] Protein [Mass/Vol] 6.4 g/dL Normal 6.3-8.0 [facility] Comment on above: Order Comment: Jose Cruz johnson Type: BLOOD SPECIMENOrdering Facility: [facility] Address: [address] [place] [address] Performed By: #### 2 4323-8 ####[facility] LABORATORYCLIA [id number] [place] [address] [place] Sodium [Moles/Vol] 134 mmol/L Low 136-144 [facility] Comment on above: Order Comment: Dahianai alex Type: BLOOD SPECIMENOrdering Facility: [facility] Address: [address] [place] [address] Performed By: #### 2 4323-8 ####[facility] LABORATORYCLIA [id number] [place] [address] [place] Urea nitrogen [Mass/Vol] 40 mg/dL High 9-24 [facility] Comment on above: Order Comment: Jose Cruz johnson Type: BLOOD SPECIMENOrdering Facility: [facility] Address: [address] [place] [address] Performed By: #### 2 4323-8 ####[facility] LABORATORYCLIA [id number] [address] Gas and Carbon monoxide pane l (BldV)on 04-09-2025 BASE DEFICIT, VENOUS -8 mmol/L Low -2-0 [facility] Comment on above: Order Comment: Speci men Type: VENOUS BLOOD SPECIMENOrdering Facility: [facility] Address: [address] [place] [address] Performed By: #### 2 4344-4 ####[facility] LABORATORYCLIA [id number] [address] Body temperature 98.6 [degF] Normal [facility] Comment on above: Order Comment: Speci men Type: VENOUS BLOOD SPECIMENOrdering Facility: [facility] Address: [address] [place] [address] Performed By: #### 2 4344-4 ####[facility] LABORATORYCLIA [id number] [address] Calcium.ionized (BldV) [Mass/Vol] 1.06 mmol/L Low 1.08-1.30 [facility] Comment on above: Order Comment: Speci men Type: VENOUS BLOOD SPECIMENOrdering Facility: [facility] Address: [address] [place] [address] Performed By: #### 2 4344-4 ####[facility] LABORATORYCLIA [id number] [address] Calcium.ionized adjusted to pH 7.4 (BldA) [Moles/Vol] 0.98 mmol/L Low 1.08-1.30 [facility] Comment on above: Order Comment: Speci men Type: VENOUS BLOOD SPECIMENOrdering Facility: [facility] Address: [address] [place] [address] Performed By: #### 2 4344-4 ####[facility] LABORATORYCLIA [id number] [address] Carboxyhemoglobin (BldV) [Mass fraction] 1.2 % Normal 0.0-2.0 [facility] Comment on above: Order Comment: Speci men Type: VENOUS BLOOD SPECIMENOrdering Facility: [facility] Address: [address] [place] [address] Result Comment: Carb oxyhemoglobin Reference Range for Smokers: 2.0-8.0% Performed By: #### 2 4344-4 ####[facility] GENERAL LABORATORYCLIA [id number] [address] [place] Chloride [Moles/Vol] 96 mmol/L Low 97-105 [facility] Comment on above: Order Comment: Speci men Type: VENOUS BLOOD SPECIMENOrdering Facility: [facility] Address: [address] [place] [address] Performed By: #### 2 4344-4 ####[facility] GENERAL LABORATORYCLIA [id number] [address] [place] CO2 (BldV) [Partial pressure] 43 mm[Hg] Normal 42-55 [facility] Comment on above: Order Comment: Speci men Type: VENOUS BLOOD SPECIMENOrdering Facility: [facility] Address: [address] [place] [address] Performed By: #### 2 4344-4 ####[facility] LABORATORYCLIA [id number] [address] FIO2 100 % Normal [facility] Comment on above: Order Comment: Speci men Type: VENOUS BLOOD SPECIMENOrdering Facility: [facility] Address: [address] [place] [address] Performed By: #### 2 4344-4 ####[facility] LABORATORYCLIA [id number] [place] [address] [place] Glucose [Mass/Vol] 171 mg/dL High 60-105 [facility] Comment on above: Order Comment: Speci men Type: VENOUS BLOOD SPECIMENOrdering Facility: [facility] Address: [address] [place] [address] Performed By: #### 2 4344-4 ####[facility] GENERAL LABORATORYCLIA [id number] [place] [address] [place] HCO3 (Bld) [Moles/Vol] 18 mmol/L Low 24-28 [facility] Comment on above: Order Comment: Speci men Type: VENOUS BLOOD SPECIMENOrdering Facility: [facility] Address: [address] [place] [address] Performed By: #### 2 4344-4 ####[facility] LABORATORYCLIA [id number] [address] [place] Hematocrit (Bld) [Volume fraction] 23.9 % Low 39.0-51.0 [facility] Comment on above: Order Comment: Speci men Type: VENOUS BLOOD SPECIMENOrdering Facility: [facility] Address: [address] [place] [address] Performed By: #### 2 4344-4 ####[facility] LABORATORYCLIA [id number] [address] [place] Hemoglobin (Bld) [Mass/Vol] 7.6 g/dL Low 13.0-17.0 [facility] Comment on above: Order Comment: Speci men Type: VENOUS BLOOD SPECIMENOrdering Facility: [facility] Address: [address] [place] [address] Performed By: #### 2 4344-4 ####[facility] LABORATORYCLIA [id number] [address] [place] INHALED TIDAL VOLUME (ML) 450 Normal [facility] Comment on above: Order Comment: Speci men Type: VENOUS BLOOD SPECIMENOrdering Facility: [facility] Address: [address] [place] [address] Performed By: #### 2 4344-4 ####[facility] LABORATORYCLIA [id number] [address] [place] Lactate [Moles/Vol] 1.1 mmol/L Normal 0.5-2.2 [facility] Comment on above: Order Comment: Speci men Type: VENOUS BLOOD SPECIMENOrdering Facility: [facility] Address: [address] [place] [address] Performed By: #### 2 4344-4 ####[facility] LABORATORYCLIA [id number] [place] [address] [place] Methemoglobin (Bld) [Mass fraction] 1.1 % Normal 0.0-1.5 [facility] Comment on above: Order Comment: Speci men Type: VENOUS BLOOD SPECIMENOrdering Facility: [facility] Address: [address] [place] [address] Performed By: #### 2 4344-4 ####[facility] LABORATORYCLIA [id number] [address] [place] O2 THERAPY VENT=Ventilator Normal [facility] Comment on above: Order Comment: Speci men Type: VENOUS BLOOD SPECIMENOrdering Facility: [facility] Address: [address] [place] [address] Performed By: #### 2 4344-4 ####[facility] LABORATORYCLIA [id number] [address] [place] Oxygen (BldV) [Partial pressure] 62 mm[Hg] High 35-45 [facility] Comment on above: Order Comment: Speci men Type: VENOUS BLOOD SPECIMENOrdering Facility: [facility] Address: [address] [place] [address] Performed By: #### 2 4344-4 ####[facility] LABORATORYCLIA [id number] [address] [place] Oxygen saturation in Venous blood 87 % High 60-85 [facility] Comment on above: Order Comment: Speci men Type: VENOUS BLOOD SPECIMENOrdering Facility: [facility] Address: [address] [place] [address] Performed By: #### 2 4344-4 ####[facility] LABORATORYCLIA [id number] [address] [place] Oxyhemoglobin (BldV) [Mass fraction] 85 % Normal 60-85 [facility] Comment on above: Order Comment: Speci men Type: VENOUS BLOOD SPECIMENOrdering Facility: [facility] Address: [address] [place] [address] Performed By: #### 2 4344-4 ####[facility] LABORATORYCLIA [id number] [place] [address] [place] PEEP/CPAP 12 cmH2O Normal [facility] Comment on above: Order Comment: Speci men Type: VENOUS BLOOD SPECIMENOrdering Facility: [facility] Address: [address] [place] [address] Performed By: #### 2 4344-4 ####[facility] LABORATORYCLIA [id number] [place] [address] [place] pH (BldV) 7.25 [pH] Low 7.32-7.42 [facility] Comment on above: Order Comment: Speci men Type: VENOUS BLOOD SPECIMENOrdering Facility: [facility] Address: [address] [place] [address] Performed By: #### 2 4344-4 ####[facility] LABORATORYCLIA [id number] [address] [place] Potassium [Moles/Vol] 3.7 mmol/L Normal 3.5-5.0 [facility] Comment on above: Order Comment: Speci men Type: VENOUS BLOOD SPECIMENOrdering Facility: [facility] Address: [address] [place] [address] Performed By: #### 2 4344-4 ####[facility] LABORATORYCLIA [id number] [address] [place] Sodium [Moles/Vol] 133 mmol/L Low 136-144 [facility] Comment on above: Order Comment: Speci men Type: VENOUS BLOOD SPECIMENOrdering Facility: [facility] Address: [address] [place] [address] Performed By: #### 2 4344-4 ####[facility] LABORATORYCLIA [id number] [place] [address] [place] BASE DEFICIT, VENOUS -3 mmol/L Low -2-0 [facility] Comment on above: Order Comment: Speci men Type: VENOUS BLOOD SPECIMENOrdering Facility: [facility] Address: [address] [place] [address] Performed By: #### 2 4344-4 ####[facility] LABORATORYCLIA [id number] [address] Body temperature 97.7 [degF] Normal [facility] Comment on above: Order Comment: Speci men Type: VENOUS BLOOD SPECIMENOrdering Facility: [facility] Address: [address] [place] [address] Performed By: #### 2 4344-4 ####[facility] LABORATORYCLIA [id number] [address] Calcium.ionized (BldV) [Mass/Vol] 1.07 mmol/L Low 1.08-1.30 [facility] Comment on above: Order Comment: Speci men Type: VENOUS BLOOD SPECIMENOrdering Facility: [facility] Address: [address] [place] [address] Performed By: #### 2 4344-4 ####[facility] LABORATORYCLIA [id number] [address] Calcium.ionized adjusted to pH 7.4 (BldA) [Moles/Vol] 1.01 mmol/L Low 1.08-1.30 [facility] Comment on above: Order Comment: Speci men Type: VENOUS BLOOD SPECIMENOrdering Facility: [facility] Address: [address] [place] [address] Performed By: #### 2 4344-4 ####[facility] LABORATORYCLIA [id number] [address] Carboxyhemoglobin (BldV) [Mass fraction] 2.0 % Normal 0.0-2.0 [facility] Comment on above: Order Comment: Speci men Type: VENOUS BLOOD SPECIMENOrdering Facility: [facility] Address: [address] [place] [address] Result Comment: Carb oxyhemoglobin Reference Range for Smokers: 2.0-8.0% Performed By: #### 2 4344-4 ####[facility] LABORATORYCLIA [id number] [address] Chloride [Moles/Vol] 95 mmol/L Low 97-105 [facility] Comment on above: Order Comment: Speci men Type: VENOUS BLOOD SPECIMENOrdering Facility: [facility] Address: [address] [place] [address] Performed By: #### 2 4344-4 ####[facility] LABORATORYCLIA [id number] [place], [place] [id number] [place] [address] [place] CO2 (BldV) [Partial pressure] 48 mm[Hg] Normal 42-55 [facility] Comment on above: Order Comment: Speci men Type: VENOUS BLOOD SPECIMENOrdering Facility: [facility] Address: [address] [place] [address] Performed By: #### 2 4344-4 ####[facility]ORATORYCLIA [id number] [address] CO2 adjusted to patient's actual temperature (BldV) [Partial pressure] 47 mmHg Normal 42-55 [facility] Comment on above: Order Comment: Speci men Type: VENOUS BLOOD SPECIMENOrdering Facility: [facility] Address: [address] [place] [address] Performed By: #### 2 4344-4 ####[facility]ORATORYCLIA [id number] [address] [place] FIO2 80 % Normal [facility] Comment on above: Order Comment: Speci men Type: VENOUS BLOOD SPECIMENOrdering Facility: [facility] Address: [address] [place] [address] Performed By: #### 2 4344-4 ####[facility]ORATORYCLIA [id number] [place] [address] [place] Glucose [Mass/Vol] 124 mg/dL High 60-105 [facility] Comment on above: Order Comment: Speci men Type: VENOUS BLOOD SPECIMENOrdering Facility: [facility] Address: [address] [place] [address] Performed By: #### 2 4344-4 ####[facility] LABORATORYCLIA [id number] [place] [address] [place] HCO3 (Bld) [Moles/Vol] 23 mmol/L Low 24-28 [facility] Comment on above: Order Comment: Speci men Type: VENOUS BLOOD SPECIMENOrdering Facility: [facility] Address: [address] [place] [address] Performed By: #### 2 4344-4 ####[facility] LABORATORYCLIA [id number] [address] [place] Hematocrit (Bld) [Volume fraction] 24.2 % Low 39.0-51.0 [facility] Comment on above: Order Comment: Speci men Type: VENOUS BLOOD SPECIMENOrdering Facility: [facility] Address: [address] [place] [address] Performed By: #### 2 4344-4 ####[facility] LABORATORYCLIA [id number] [address] [place] Hemoglobin (Bld) [Mass/Vol] 7.8 g/dL Low 13.0-17.0 [facility] Comment on above: Order Comment: Speci men Type: VENOUS BLOOD SPECIMENOrdering Facility: [facility] Address: [address] [place] [address] Performed By: #### 2 4344-4 ####[facility] LABORATORYCLIA [id number] [address] [place] IPAP (CM H2O) 108 Normal [facility] Comment on above: Order Comment: Speci men Type: VENOUS BLOOD SPECIMENOrdering Facility: [facility] Address: [address] [place] [address] Performed By: #### 2 4344-4 ####[facility]ATORYCLIA [id number] [place] [address] [place] Lactate [Moles/Vol] 1.1 mmol/L Normal 0.5-2.2 [facility] Comment on above: Order Comment: Speci men Type: VENOUS BLOOD SPECIMENOrdering Facility: [facility] Address: [address] [place] [address] Performed By: #### 2 4344-4 ####[facility]ATORYCLIA [id number] [address] OF [facility] Methemoglobin (Bld) [Mass fraction] 1.0 % Normal 0.0-1.5 [facility] Comment on above: Order Comment: Speci men Type: VENOUS BLOOD SPECIMENOrdering Facility: [facility] Address: [address] [place] [address] Performed By: #### 2 4344-4 ####[facility]ATORYCLIA [id number] [address] O2 THERAPY Positive Normal [facility] Comment on above: Order Comment: Speci men Type: VENOUS BLOOD SPECIMENOrdering Facility: [facility] Address: [address] [place] [address] Performed By: #### 2 4344-4 ####[facility] LABORATORYCLIA [id number] [address] Oxygen (BldV) [Partial pressure] 63 mm[Hg] High 35-45 [facility] Comment on above: Order Comment: Speci men Type: VENOUS BLOOD SPECIMENOrdering Facility: [facility] Address: [address] [place] [address] Performed By: #### 2 4344-4 ####[facility] LABORATORYCLIA [id number] [address] Oxygen adjusted to patient's actual temperature (BldV) [Partial pressure] 61 mmHg High 35-45 [facility] Comment on above: Order Comment: Speci men Type: VENOUS BLOOD SPECIMENOrdering Facility: [facility] Address: [address] [place] [address] Performed By: #### 2 4344-4 ####[facility]ORYCLIA [id number] [address] [place] Oxygen saturation in Venous blood 89 % High 60-85 [facility] Comment on above: Order Comment: Speci men Type: VENOUS BLOOD SPECIMENOrdering Facility: [facility] Address: [facility] [place] [address] Performed By: #### 2 4344-4 ####[facility]ORYCLIA [id number] [address] [place] Oxyhemoglobin (BldV) [Mass fraction] 86 % High 60-85 [facility] Comment on above: Order Comment: Speci men Type: VENOUS BLOOD SPECIMENOrdering Facility: [facility] Address: [address] [place] [address] Performed By: #### 2 4344-4 ####[facility] LABORATORYCLIA [id number] [place] [address] [place] PEEP/CPAP 8 cmH2O Normal [facility] Comment on above: Order Comment: Speci men Type: VENOUS BLOOD SPECIMENOrdering Facility: [facility] Address: [address] [place] [address] Performed By: #### 2 4344-4 ####[facility] LABORATORYCLIA [id number] [place] [address] [place] pH (BldV) 7.30 [pH] Low 7.32-7.42 [facility] Comment on above: Order Comment: Speci men Type: VENOUS BLOOD SPECIMENOrdering Facility: [facility] Address: [address] [place] [address] Performed By: #### 2 4344-4 ####[facility] LABORATORYCLIA [id number] [address] [place] pH adjusted to patient's actual temperature (BldV) 7.31 Low 7.32-7.42 [facility] Comment on above: Order Comment: Speci men Type: VENOUS BLOOD SPECIMENOrdering Facility: [facility] Address: [address] [place] [address] Performed By: #### 2 4344-4 ####[facility] LABORATORYCLIA [id number] [place] [address] [place] Potassium [Moles/Vol] 3.6 mmol/L Normal 3.5-5.0 [facility] Comment on above: Order Comment: Speci men Type: VENOUS BLOOD SPECIMENOrdering Facility: [facility] Address: [address] [place] [address] Performed By: #### 2 4344-4 ####[facility] LABORATORYCLIA [id number] [address] SET VENTILATOR RESPIRATORY RATE (BPM) 16 BPM Normal [facility] Comment on above: Order Comment: Speci men Type: VENOUS BLOOD SPECIMENOrdering Facility: [facility] Address: [address] [place] [address] Performed By: #### 2 4344-4 ####[facility] LABORATORYCLIA [id number] [address] [place] Sodium [Moles/Vol] 135 mmol/L Low 136-144 [facility] Comment on above: Order Comment: Speci men Type: VENOUS BLOOD SPECIMENOrdering Facility: [facility] Address: [address] [place] [address] Performed By: #### 2 4344-4 ####[facility] LABORATORYCLIA [id number] [address] Magnesium SerPl-ncon 04-09 Magnesium [Mass/Vol] 2.6 mg/dL High 1.7-2.3 [facility] Comment on above: Order Comment: Speci men Type: BLOOD SPECIMENOrdering Facility: [facility] Address: [address] [place] [address] Performed By: #### 1 9123-9, 2777-1 ####[facility] LABORATORYCLIA [id number] [address] [place] Phosphate SerPl-mCncon 04-09 Phosphate [Mass/Vol] 5.3 mg/dL High 2.7-4.8 [facility] Comment on above: Order Comment: Speci men Type: BLOOD SPECIMENOrdering Facility: [facility] Address: [address] [place] [address] Performed By: #### 1 9123-9, 2777-1 ####[facility] LABORATORYCLIA [id number] [address] [place] XR ABDOMEN 1V SUPINEon 04-09 XR ABDOMEN 1V SUPINE Normal [facility] XR CHEST 1V FRONTALon 2024 XR CHEST 1V FRONTAL Normal [facility] XR CHEST 1V FRONTAL Normal [facility] XR CHEST 1V FRONTAL PORTon 0 04-09-2025 XR CHEST 1V FRONTAL PORT Normal [facility] aPTT PPPon 04-09-2025 aPTT Coag (PPP) [Time] 65.2 s High 23.0-32.4 [facility] Comment on above: Order Comment: Speci men Type: BLOOD SPECIMENOrdering Facility: [facility] Address: [address] [place] [address] Performed By: #### 1 4979-9 ####[facility] LABORATORYCLIA [id number] [address] aPTT Coag (PPP) [Time] 44.8 s High 23.0-32.4 [facility] Comment on above: Order Comment: Speci men Type: BLOOD SPECIMENOrdering Facility: [facility] Address: [address] [place] [address] Performed By: #### 1 4979-9 ####[facility] LABORATORYCLIA [id number] [address] aPTT Coag (PPP) [Time] 57.5 s High 23.0-32.4 [facility] Comment on above: Order Comment: Speci men Type: BLOOD SPECIMENOrdering Facility: [facility] Address: [address] [place] [address] Performed By: #### 1 4979-9 ####[facility] LABORATORYCLIA [id number] [address] ARTERIAL BLOOD GASESon 04-08 Base deficit (BldA) [Moles/Vol] -2 mmol/L Normal -2-0 [facility] Comment on above: Order Comment: Speci men Type: ARTERIAL BLOOD SPECIMENOrdering Facility: [facility] Address: [address] [place] [address] Performed By: #### A LLBG ####[facility] LABORATORYCLIA [id number] [address] Body temperature 98.6 [degF] Normal [facility] Comment on above: Order Comment: Speci men Type: ARTERIAL BLOOD SPECIMENOrdering Facility: [facility] Address: [address] [place] [address] Performed By: #### A LLBG ####[facility] LABORATORYCLIA [id number] [address] Calcium.ionized (BldV) [Mass/Vol] 1.06 mmol/L Low 1.08-1.30 [facility] Comment on above: Order Comment: Speci men Type: ARTERIAL BLOOD SPECIMENOrdering Facility: [facility] Address: [address] [place] [address] Performed By: #### A LLBG ####[facility] LABORATORYCLIA [id number] [address] STATES [facility] Calcium.ionized adjusted to pH 7.4 (BldA) [Moles/Vol] 1.03 mmol/L Low 1.08-1.30 [facility] Comment on above: Order Comment: Speci men Type: ARTERIAL BLOOD SPECIMENOrdering Facility: [facility] Address: [address] [place] [address] Performed By: #### A LLBG ####[facility] LABORATORYCLIA [id number] [address] [place] Carboxyhemoglobin (BldA) [Mass fraction] 0.7 % Normal 0.0-2.0 [facility] Comment on above: Order Comment: Speci men Type: ARTERIAL BLOOD SPECIMENOrdering Facility: [facility] Address: [address] [place] [address] Result Comment: Carb oxyhemoglobin Reference Range for Smokers: 2.0-8.0% Performed By: #### A LLBG ####[facility] LABORATORYCLIA [id number] [address] [place] Chloride [Moles/Vol] 97 mmol/L Normal 97-105 [facility] Comment on above: Order Comment: Speci men Type: ARTERIAL BLOOD SPECIMENOrdering Facility: [facility] Address: [address] [place] [address] Performed By: #### A LLBG ####[facility]ATORYCLIA [id number] [address] [place] CO2 (Bld) [Partial pressure] 44 mm Hg Normal 36-46 [facility] Comment on above: Order Comment: Speci men Type: ARTERIAL BLOOD SPECIMENOrdering Facility: [facility] Address: [address] [place] [address] Performed By: #### A LLBG ####[facility] LABORATORYCLIA [id number] [address] [place] FIO2 90 % Normal [facility] Comment on above: Order Comment: Speci men Type: ARTERIAL BLOOD SPECIMENOrdering Facility: [facility] Address: [address] [place] [address] Performed By: #### A LLBG ####[facility] LABORATORYCLIA [id number] [address] [place] Glucose [Mass/Vol] 148 mg/dL High 60-105 [facility] Comment on above: Order Comment: Speci men Type: ARTERIAL BLOOD SPECIMENOrdering Facility: [facility] Address: [address] [place] [address] Performed By: #### A LLBG ####[facility] LABORATORYCLIA [id number] [address] [place] HCO3 (Bld) [Moles/Vol] 23 mmol/L Normal 22-26 [facility] Comment on above: Order Comment: Speci men Type: ARTERIAL BLOOD SPECIMENOrdering Facility: [facility] Address: [address] [place] [address] Performed By: #### A LLBG ####[facility] LABORATORYCLIA [id number] [address] [place] Hematocrit (Bld) [Volume fraction] 26.3 % Low 39.0-51.0 [facility] Comment on above: Order Comment: Speci men Type: ARTERIAL BLOOD SPECIMENOrdering Facility: [facility] Address: [address] [place] [address] Performed By: #### A LLBG ####[facility] LABORATORYCLIA [id number] [address] [place] Hemoglobin (Bld) [Mass/Vol] 8.5 g/dL Low 13.0-17.0 [facility] Comment on above: Order Comment: Speci men Type: ARTERIAL BLOOD SPECIMENOrdering Facility: [facility] Address: [address] [place] [address] Performed By: #### A LLBG ####[facility] LABORATORYCLIA [id number] [address] [place] Lactate [Moles/Vol] 1.2 mmol/L Normal 0.5-2.2 [facility] Comment on above: Order Comment: Speci men Type: ARTERIAL BLOOD SPECIMENOrdering Facility: [facility] Address: [address] [place] [address] Performed By: #### A LLBG ####[facility] LABORATORYCLIA [id number] [address] [place] LITERS 60 Liters/min Normal [facility] Comment on above: Order Comment: Speci men Type: ARTERIAL BLOOD SPECIMENOrdering Facility: [facility] Address: [address] [place] [address] Performed By: #### A LLBG ####[facility] LABORATORYCLIA [id number] [address] [place] Methemoglobin (Bld) [Mass fraction] 0.9 % Normal 0.0-1.5 [facility] Comment on above: Order Comment: Speci men Type: ARTERIAL BLOOD SPECIMENOrdering Facility: [facility] Address: [address] [place] [address] Performed By: #### A LLBG ####[facility]ATORYCLIA [id number] [address] [place] O2 THERAPY Hi-Flow Nasal Cannula-Heated Normal [facility] Comment on above: Order Comment: Speci men Type: ARTERIAL BLOOD SPECIMENOrdering Facility: [facility] Address: [address] [place] [address] Performed By: #### A LLBG ####[facility] LABORATORYCLIA [id number] [address] [place] Oxygen (Bld) [Partial pressure] 65 mm Hg Low 85-95 [facility] Comment on above: Order Comment: Speci men Type: ARTERIAL BLOOD SPECIMENOrdering Facility: [facility] Address: [address] [place] [address] Performed By: #### A LLBG ####[facility] LABORATORYCLIA [id number] [address] [place] Oxyhemoglobin (BldA) [Mass fraction] 89 % Low 95-98 [facility] Comment on above: Order Comment: Speci men Type: ARTERIAL BLOOD SPECIMENOrdering Facility: [facility] Address: [address] [place] [address] Performed By: #### A LLBG ####[facility] LABORATORYCLIA [id number] [place] [address] [place] pH (Bld) 7.35 [pH] Normal 7.35-7.45 [facility] Comment on above: Order Comment: Speci men Type: ARTERIAL BLOOD SPECIMENOrdering Facility: [facility] Address: [address] [place] [address] Performed By: #### A LLBG ####[facility] LABORATORYCLIA [id number] [address] [place] PO2 / FIO2 RATIO 72 mmHg Low >300 [facility] Comment on above: Order Comment: Speci men Type: ARTERIAL BLOOD SPECIMENOrdering Facility: [facility] Address: [address] [place] [address] Performed By: #### A LLBG ####[facility] LABORATORYCLIA [id number] [place] [address] [place] Potassium [Moles/Vol] 3.7 mmol/L Normal 3.5-5.0 [facility] Comment on above: Order Comment: Speci men Type: ARTERIAL BLOOD SPECIMENOrdering Facility: [facility] Address: [address] [place] [address] Performed By: #### A LLBG ####[facility] LABORATORYCLIA [id number] [address] Sodium [Moles/Vol] 130 mmol/L Low 136-144 [facility] Comment on above: Order Comment: Speci men Type: ARTERIAL BLOOD SPECIMENOrdering Facility: [facility] Address: [address] [place] [address] Performed By: #### A LLBG ####[facility] LABORATORYCLIA [id number] [address] CBC panel Auto (Bld)on 04-08 Erythrocyte distribution width (RBC) [Ratio] 14.5 % Normal 11.5-15.0 [facility] Comment on above: Order Comment: Speci men Type: BLOOD SPECIMENOrdering Facility: [facility] Address: [address] [place] [address] Performed By: #### 5 8410-2 ####[facility] LABORATORYCLIA [id number] [address] Hematocrit (Bld) [Volume fraction] 24.6 % Low 39.0-51.0 [facility] Comment on above: Order Comment: Speci men Type: BLOOD SPECIMENOrdering Facility: [facility] Address: [address] [place] [address] Performed By: #### 5 8410-2 ####[facility] LABORATORYCLIA [id number] [address] Hemoglobin (Bld) [Mass/Vol] 7.6 g/dL Low 13.0-17.0 [facility] Comment on above: Order Comment: Speci men Type: BLOOD SPECIMENOrdering Facility: [facility] Address: [address] [place] [address] Performed By: #### 5 8410-2 ####[facility] LABORATORYCLIA [id number] [address] MCH (RBC) [Entitic mass] 26.6 pg Normal 26.0-34.0 [facility] Comment on above: Order Comment: Speci men Type: BLOOD SPECIMENOrdering Facility: [facility] Address: [address] [place] [address] Performed By: #### 5 8410-2 ####[facility] LABORATORYCLIA [id number] [address] [place] MCHC (RBC) [Mass/Vol] 30.9 g/dL Normal 30.5-36.0 [facility] Comment on above: Order Comment: Speci men Type: BLOOD SPECIMENOrdering Facility: [facility] Address: [address] [place] [address] Performed By: #### 5 8410-2 ####[facility] LABORATORYCLIA [id number] [address] [place] MCV (RBC) [Entitic vol] 86.0 fL Normal 80.0-100.0 [facility] Comment on above: Order Comment: Speci men Type: BLOOD SPECIMENOrdering Facility: [facility] Address: [address] [place] [address] Performed By: #### 5 8410-2 ####[facility] LABORATORYCLIA [id number] [address] STATES OF [facility] Nucleated RBC (Bld) [#/Vol] 10*3/uL Normal <0.01 [facility] Comment on above: Order Comment: Speci men Type: BLOOD SPECIMENOrdering Facility: [facility] Address: [address] [place] [address] Performed By: #### 5 8410-2 ####[facility] LABORATORYCLIA [id number] [address] Platelet mean volume (Bld) [Entitic vol] 10.7 fL Normal 9.0-12.7 [facility] Comment on above: Order Comment: Speci men Type: BLOOD SPECIMENOrdering Facility: [facility] Address: [address] [place] [address] Performed By: #### 5 8410-2 ####[facility] LABORATORYCLIA [id number] [address] OF [facility] Platelets (Bld) [#/Vol] 182 10*3/uL Normal 150-400 [facility] Comment on above: Order Comment: Speci men Type: BLOOD SPECIMENOrdering Facility: [facility] Address: [address] [place] [address] Performed By: #### 5 8410-2 ####[facility] LABORATORYCLIA [id number] [address] OF [facility] RBC (Bld) [#/Vol] 2.86 10*6/uL Low 4.20-6.00 [facility] Comment on above: Order Comment: Speci men Type: BLOOD SPECIMENOrdering Facility: [facility] Address: [address] [place] [address] Performed By: #### 5 8410-2 ####[facility] LABORATORYCLIA [id number] [address] WBC (Bld) [#/Vol] 10.94 10*3/uL Normal 3.70-11.00 [facility] Comment on above: Order Comment: Speci men Type: BLOOD SPECIMENOrdering Facility: [facility] Address: [address] [place] [address] Performed By: #### 5 8410-2 ####[facility] LABORATORYCLIA [id number] [address] Erythrocyte distribution width (RBC) [Ratio] 14.3 % Normal 11.5-15.0 [facility] Comment on above: Order Comment: Speci men Type: BLOOD SPECIMENOrdering Facility: [facility] Address: [address] [place] [address] Performed By: #### 5 8410-2 ####[facility] LABORATORYCLIA [id number] [address] Hematocrit (Bld) [Volume fraction] 27.6 % Low 39.0-51.0 [facility] Comment on above: Order Comment: Speci men Type: BLOOD SPECIMENOrdering Facility: [facility] Address: [address] [place] [address] Performed By: #### 5 8410-2 ####[facility] LABORATORYCLIA [id number] [address] STATES OF [facility] Hemoglobin (Bld) [Mass/Vol] 8.4 g/dL Low 13.0-17.0 [facility] Comment on above: Order Comment: Speci men Type: BLOOD SPECIMENOrdering Facility: [facility] Address: [address] [place] [address] Performed By: #### 5 8410-2 ####[facility] LABORATORYCLIA [id number] [address] [place] MCH (RBC) [Entitic mass] 26.4 pg Normal 26.0-34.0 [facility] Comment on above: Order Comment: Speci men Type: BLOOD SPECIMENOrdering Facility: [facility] Address: [address] [place] [address] Performed By: #### 5 8410-2 ####[facility] LABORATORYCLIA [id number] [address] [place] MCHC (RBC) [Mass/Vol] 30.4 g/dL Low 30.5-36.0 [facility] Comment on above: Order Comment: Speci men Type: BLOOD SPECIMENOrdering Facility: [facility] Address: [address] [place] [address] Performed By: #### 5 8410-2 ####[facility] LABORATORYCLIA [id number] [address] [place] MCV (RBC) [Entitic vol] 86.8 fL Normal 80.0-100.0 [facility] Comment on above: Order Comment: Speci men Type: BLOOD SPECIMENOrdering Facility: [facility] Address: [address] [place] [address] Performed By: #### 5 8410-2 ####[facility] LABORATORYCLIA [id number] [address] [place] Nucleated RBC (Bld) [#/Vol] 10*3/uL Normal <0.01 [facility] Comment on above: Order Comment: Speci men Type: BLOOD SPECIMENOrdering Facility: [facility] Address: [address] [place] [address] Performed By: #### 5 8410-2 ####[facility] LABORATORYCLIA [id number] [place] Platelet mean volume (Bld) [Entitic vol] 10.2 fL Normal 9.0-12.7 [facility] Comment on above: Order Comment: Speci men Type: BLOOD SPECIMENOrdering Facility: [facility] Address: [address] [place] [address] Performed By: #### 5 8410-2 ####[facility] LABORATORYCLIA [id number] [address] [place] Platelets (Bld) [#/Vol] 165 10*3/uL Normal 150-400 [facility] Comment on above: Order Comment: Speci men Type: BLOOD SPECIMENOrdering Facility: [facility] Address: [address] [place] [address] Performed By: #### 5 8410-2 ####[facility] LABORATORYCLIA [id number] [address] [place] RBC (Bld) [#/Vol] 3.18 10*6/uL Low 4.20-6.00 [facility] Comment on above: Order Comment: Speci men Type: BLOOD SPECIMENOrdering Facility: [facility] Address: [address] [place] [address] Performed By: #### 5 8410-2 ####[facility] LABORATORYCLIA [id number] [address] [place] WBC (Bld) [#/Vol] 12.20 10*3/uL High 3.70-11.00 [facility] Comment on above: Order Comment: Speci men Type: BLOOD SPECIMENOrdering Facility: [facility] Address: [address] [place] [address] Performed By: #### 5 8410-2 ####[facility] LABORATORYCLIA [id number] [address] [place] CK SerPl-cCncon 04-08-2025 CK [Catalytic activity/Vol] 2203 U/L High 51-298 [facility] Comment on above: Order Comment: Speci men Type: BLOOD SPECIMENOrdering Facility: [facility] Address: [address] [place], [place] [address] [address] Performed By: #### 2 777-1, 34160-2, 32760-7, 3084-1, 84094-9, 2156-6 ####[facility] LABORATORYCLIA [id number] [address] OF [facility] CONSULTon 04-08-2025 CONSULT Normal [facility] CONSULT Normal [facility] CONSULT Normal [facility] Comprehensive metabolic 2000 panelon 04-08-2025 Albumin [Mass/Vol] 3.7 g/dL Low 3.9-4.9 [facility] Comment on above: Order Comment: Speci men Type: BLOOD SPECIMENOrdering Facility: [facility] Address: [facility] [place] [address] Performed By: #### 2 777-1, 20177-6, 84081-8, 3084-1, 58312-7, 2156-6 ####[facility] LABORATORYCLIA [id number] [address] [place] ALP [Catalytic activity/Vol] 88 U/L Normal 38-113 [facility] Comment on above: Order Comment: Speci men Type: BLOOD SPECIMENOrdering Facility: [facility] Address: [address] [place], [place] [address] [address] Performed By: #### 2 777-1, 54178-3, 98670-2, 3084-1, 18008-4, 2157-6 ####[facility] LABORATORYCLIA [id number] [place], [place] [address] [place] [place] [address] [place] ALT With P-5'-P [Catalytic activity/Vol] 15 U/L Normal 10-54 [facility] Comment on above: Order Comment: Speci men Type: BLOOD SPECIMENOrdering Facility: [facility] Address: [address] [place] [address] Performed By: #### 2 777-1, 56861-5, 62331-8, 3084-1, 04874-8, 2157-6 ####[facility] LABORATORYCLIA [id number] [place] [address] [place] [facility] Anion gap [Moles/Vol] 17 mmol/L High 8-15 [facility] Comment on above: Order Comment: Speci men Type: BLOOD SPECIMENOrdering Facility: [facility] Address: [address] [place] [address] Performed By: #### 2 777-1, 28435-9, 60803-7, 3084-1, 49315-5, 2156-6 ####[facility] LABORATORYCLIA [id number] [address] AST With P-5'-P [Catalytic activity/Vol] 58 U/L High 14-40 [facility] Comment on above: Order Comment: Speci men Type: BLOOD SPECIMENOrdering Facility: [facility] Address: [address] [place] [address] Performed By: #### 2 777-1, 00598-7, 61040-0, 3084-1, 47395-6, 2156-6 ####[facility] LABORATORYCLIA [id number] [address] [place] Bilirubin [Mass/Vol] 0.6 mg/dL Normal 0.2-1.3 [facility] Comment on above: Order Comment: Speci men Type: BLOOD SPECIMENOrdering Facility: [facility] Address: [address] [place] [address] Performed By: #### 2 777-1, 31750-1, 30892-8, 3084-1, 72871-9, 2157-6 ####[facility] LABORATORYCLIA [id number] [place] [address] [place] Calcium [Mass/Vol] 8.2 mg/dL Low 8.5-10.2 [facility] Comment on above: Order Comment: Speci men Type: BLOOD SPECIMENOrdering Facility: [facility] Address: [address] [place] [address] Performed By: #### 2 777-1, 86943-8, 71558-7, 3084-1, 22383-2, 2156-6 ####[facility] LABORATORYCLIA [id number] [place] [address] [place] Chloride [Moles/Vol] 93 mmol/L Low 98-107 [facility] Comment on above: Order Comment: Speci men Type: BLOOD SPECIMENOrdering Facility: [facility] Address: [address] [place] [address] Performed By: #### 2 777-1, 21729-6, 69797-7, 3084-1, 30993-7, 2157-02 ####[facility] LABORATORYCLIA [id number] [place] [address] [place] CO2 [Moles/Vol] 22 mmol/L Normal 22-30 [facility] Comment on above: Order Comment: Speci men Type: BLOOD SPECIMENOrdering Facility: [facility] Address: [address] [place] [address] Performed By: #### 2 777-1, 08052-7, 63218-1, 3084-1, 20140-5, 6 ####[facility] LABORATORYCLIA [id number] [place] [address] [place] Creatinine [Mass/Vol] 2.10 mg/dL High 0.73-1.22 [facility] Comment on above: Order Comment: Speci men Type: BLOOD SPECIMENOrdering Facility: [facility] Address: [address] [place] [address] Performed By: #### 2 777-1, 28512-8, 05535-4, 3084-1, 79330-4, 2156-6 ####[facility] LABORATORYCLIA [id number] [place] [address] [place] eGFRcr SerPlBld CKD-EPI 2020 33 mL/min/1.73m??? Low >=60 [facility] Comment on above: Order Comment: Jose Cruz johnson Type: BLOOD SPECIMENOrdering Facility: [facility] Address: [address] [place] [address] Result Comment: Mary Kay mated Glomerular Filtration Rate (eGFR) is calculated using the 2020 CKD-EPI creatinine equation. This equation utilizes serum creatinine, sex, and age as parameters. The creatinine assay has traceable calibration to isotope dilution-mass spectrometry. Refer to KDIGO guidelines for clinical interpretation. In patients with unstable renal function, e.g. those with acute kidney injury, the eGFR may not accurately reflect actual GFR. Performed By: #### 2 777-1, 45790-3, 77349-0, 3084-1, 03102-8, 2156-6 ####[facility] HOSPITALCLIA [id number] [place] [address] [place] Glucose [Mass/Vol] 167 mg/dL High 74-99 [facility] Comment on above: Order Comment: Jose Cruz johnson Type: BLOOD SPECIMENOrdering Facility: [facility] Address: [address] [place] [address] Result Comment: The [place] [employer] (ADA) provides guidance for cutoff values for fasting glucose and random glucose. The ADA defines fasting as no caloric intake for at least 8 hours. Fasting plasma glucose results between 100 to 125 mg/dL indicate increased risk for diabetes (prediabetes).Fasting plasma glucose results greater than or equal to 126 mg/dL meet the criteria for diagnosis of diabetes. In the absence of unequivocal hyperglycemia, results should be confirmed by repeat testing. In a patient with classic symptoms of hyperglycemia or hyperglycemic crisis, random plasma glucose results greater than or equal to 200 mg/dL meet the criteria for diagnosis of diabetes.Reference: Standards of Medical Care in Diabetes 2016, [place] [employer]. Diabetes Care. 2016.39(Suppl 1). Performed By: #### 2 777-1, 73543-5, 69551-6, 3084-1, 65206-9, 2157-6 ####[facility] LABORATORYCLIA [id number] [place] [address] [place] Potassium [Moles/Vol] 3.9 mmol/L Normal 3.7-5.1 [facility] Comment on above: Order Comment: Speci men Type: BLOOD SPECIMENOrdering Facility: [facility] Address: [address] [place] [address] Performed By: #### 2 777-1, 74210-6, 66512-8, 3084-1, 03850-4, 2157-02 ####[facility] LABORATORYCLIA [id number] [place] [id number] [place] Protein [Mass/Vol] 6.8 g/dL Normal 6.3-8.0 [facility] Comment on above: Order Comment: Speci men Type: BLOOD SPECIMENOrdering Facility: [facility] Address: [address] [place] [address] Performed By: #### 2 777-1, 76823-8, 84061-4, 3083-1, 41884-7, 2157-02 ####[facility] LABORATORYCLIA [id number] [place] [address] [place] Sodium [Moles/Vol] 132 mmol/L Low 136-144 [facility] Comment on above: Order Comment: Speci men Type: BLOOD SPECIMENOrdering Facility: [facility] Address: [address] [place] [address] Performed By: #### 2 777-1, 55524-3, 04227-3, 308-1, 74751-0, 2157-02 ####[facility] LABORATORYCLIA [id number] [place] [id number] [place] Urea nitrogen [Mass/Vol] 31 mg/dL High 9-24 [facility] Comment on above: Order Comment: Speci men Type: BLOOD SPECIMENOrdering Facility: [facility] Address: [address] [place] [address] Performed By: #### 2 777-1, 23853-3, 91502-9, 3084-1, 63193-3, 2157-02 ####[facility] LABORATORYCLIA [id number] [address] OF [facility] Gas and Carbon monoxide pane l (BldV)on 04-08-2025 BASE DEFICIT, VENOUS -3 mmol/L Low -2-0 [facility] Comment on above: Order Comment: Speci men Type: VENOUS BLOOD SPECIMENOrdering Facility: [facility] Address: [address] [place] [address] Performed By: #### 2 4344-4 ####[facility] LABORATORYCLIA [id number] [address] Body temperature 97.7 [degF] Normal [facility] Comment on above: Order Comment: Speci men Type: VENOUS BLOOD SPECIMENOrdering Facility: [facility] Address: [address] [place] [address] Performed By: #### 2 4344-4 ####[facility] LABORATORYCLIA [id number] [address] STATES [facility] Calcium.ionized (BldV) [Mass/Vol] 1.07 mmol/L Low 1.08-1.30 [facility] Comment on above: Order Comment: Speci men Type: VENOUS BLOOD SPECIMENOrdering Facility: [facility] Address: [address] [place] [address] Performed By: #### 2 4344-4 ####[facility] LABORATORYCLIA [id number] [address] Calcium.ionized adjusted to pH 7.4 (BldA) [Moles/Vol] 1.02 mmol/L Low 1.08-1.30 [facility] Comment on above: Order Comment: Speci men Type: VENOUS BLOOD SPECIMENOrdering Facility: [facility] Address: [address] [place] [address] Performed By: #### 2 4344-4 ####[facility] LABORATORYCLIA [id number] [address] [place] Carboxyhemoglobin (BldV) [Mass fraction] 2.0 % Normal 0.0-2.0 [facility] Comment on above: Order Comment: Speci men Type: VENOUS BLOOD SPECIMENOrdering Facility: [facility] Address: [address] [place] [address] Result Comment: Carb oxyhemoglobin Reference Range for Smokers: 2.0-8.0% Performed By: #### 2 4344-4 ####[facility]ORATORYCLIA [id number] [address] [place] Chloride [Moles/Vol] 96 mmol/L Low 97-105 [facility] Comment on above: Order Comment: Speci men Type: VENOUS BLOOD SPECIMENOrdering Facility: [facility] Address: [address] [place] [address] Performed By: #### 2 4344-4 ####[facility] LABORATORYCLIA [id number] [address] [place] CO2 (BldV) [Partial pressure] 47 mm[Hg] Normal 42-55 [facility] Comment on above: Order Comment: Speci men Type: VENOUS BLOOD SPECIMENOrdering Facility: [facility] Address: [address] [place] [address] Performed By: #### 2 4344-4 ####[facility] GENER[facility] LABORATORYCLIA [id number] [address] CO2 adjusted to patient's actual temperature (BldV) [Partial pressure] 46 mmHg Normal 42-55 [facility] Comment on above: Order Comment: Speci men Type: VENOUS BLOOD SPECIMENOrdering Facility: [facility] Address: [address] [place] [address] Performed By: #### 2 4344-4 ####[facility] LABORATORYCLIA [id number] [place] [address] [place] FIO2 75 % Normal [facility] Comment on above: Order Comment: Speci men Type: VENOUS BLOOD SPECIMENOrdering Facility: [facility] Address: [address] [place] [address] Performed By: #### 2 4344-4 ####[facility] LABORATORYCLIA [id number] [address] [place] Glucose [Mass/Vol] 156 mg/dL High 60-105 [facility] Comment on above: Order Comment: Speci men Type: VENOUS BLOOD SPECIMENOrdering Facility: [facility] Address: [address] [place] [address] Performed By: #### 2 4344-4 ####[facility] LABORATORYCLIA [id number] [address] [place] HCO3 (Bld) [Moles/Vol] 23 mmol/L Low 24-28 [facility] Comment on above: Order Comment: Speci men Type: VENOUS BLOOD SPECIMENOrdering Facility: [facility] Address: [address] [place] [address] Performed By: #### 2 4344-4 ####[facility] LABORATORYCLIA [id number] [address] STATES OF [facility] Hematocrit (Bld) [Volume fraction] 25.8 % Low 39.0-51.0 [facility] Comment on above: Order Comment: Speci men Type: VENOUS BLOOD SPECIMENOrdering Facility: [facility] Address: [address] [place] [address] Performed By: #### 2 4344-4 ####[facility] LABORATORYCLIA [id number] [address] [place] Hemoglobin (Bld) [Mass/Vol] 8.3 g/dL Low 13.0-17.0 [facility] Comment on above: Order Comment: Speci men Type: VENOUS BLOOD SPECIMENOrdering Facility: [facility] Address: [address] [place] [address] Performed By: #### 2 4344-4 ####[facility] LABORATORYCLIA [id number] [address] [place] IPAP (CM H2O) 18 Normal [facility] Comment on above: Order Comment: Speci men Type: VENOUS BLOOD SPECIMENOrdering Facility: [facility] Address: [address] [place] [address] Performed By: #### 2 4344-4 ####[facility] LABORATORYCLIA [id number] [address] [place] Lactate [Moles/Vol] 1.0 mmol/L Normal 0.5-2.2 [facility] Comment on above: Order Comment: Speci men Type: VENOUS BLOOD SPECIMENOrdering Facility: [facility] Address: [address] [place] [address] Performed By: #### 2 4344-4 ####[facility] LABORATORYCLIA [id number] [address] [place] Methemoglobin (Bld) [Mass fraction] 1.3 % Normal 0.0-1.5 [facility] Comment on above: Order Comment: Speci men Type: VENOUS BLOOD SPECIMENOrdering Facility: [facility] Address: [address] [place] [address] Performed By: #### 2 4344-4 ####[facility] LABORATORYCLIA [id number] [address] O2 THERAPY Positive Normal [facility] Comment on above: Order Comment: Speci men Type: VENOUS BLOOD SPECIMENOrdering Facility: [facility] Address: [address] [place] [address] Performed By: #### 2 4344-4 ####[facility] LABORATORYCLIA [id number] [address] [place] Oxygen (BldV) [Partial pressure] 123 mm[Hg] High 35-45 [facility] Comment on above: Order Comment: Speci men Type: VENOUS BLOOD SPECIMENOrdering Facility: [facility] Address: [address] [place] [address] Performed By: #### 2 4344-4 ####[facility] LABORATORYCLIA [id number] [address] Oxygen adjusted to patient's actual temperature (BldV) [Partial pressure] 121 mmHg High 35-45 [facility] Comment on above: Order Comment: Speci men Type: VENOUS BLOOD SPECIMENOrdering Facility: [facility] Address: [address] [place] [address] Performed By: #### 2 4344-4 ####[facility] LABORATORYCLIA [id number] [address] [place] Oxygen saturation in Venous blood 98 % High 60-85 [facility] Comment on above: Order Comment: Speci men Type: VENOUS BLOOD SPECIMENOrdering Facility: [facility] Address: [address] [place] [address] Performed By: #### 2 4344-4 ####[facility] LABORATORYCLIA [id number] [address] [place] Oxyhemoglobin (BldV) [Mass fraction] 95 % High 60-85 [facility] Comment on above: Order Comment: Speci men Type: VENOUS BLOOD SPECIMENOrdering Facility: [facility] Address: [address] [place] [address] Performed By: #### 2 4344-4 ####[facility] LABORATORYCLIA [id number] [address] [place] PEEP/CPAP 12 cmH2O Normal [facility] Comment on above: Order Comment: Speci men Type: VENOUS BLOOD SPECIMENOrdering Facility: [facility] Address: [address] [place] [address] Performed By: #### 2 4344-4 ####[facility]ORATORYCLIA [id number] [address] [place] pH (BldV) 7.32 [pH] Normal 7.32-7.42 [facility] Comment on above: Order Comment: Speci men Type: VENOUS BLOOD SPECIMENOrdering Facility: [facility] Address: [address] [place] [address] Performed By: #### 2 4344-4 ####[facility]ORATORYCLIA [id number] [address] [place] pH adjusted to patient's actual temperature (BldV) 7.32 Normal 7.32-7.42 [facility] Comment on above: Order Comment: Speci men Type: VENOUS BLOOD SPECIMENOrdering Facility: [facility] Address: [address] [place] [address] Performed By: #### 2 4344-4 ####[facility] LABORATORYCLIA [id number] [address] Potassium [Moles/Vol] 3.7 mmol/L Normal 3.5-5.0 [facility] Comment on above: Order Comment: Speci men Type: VENOUS BLOOD SPECIMENOrdering Facility: [facility] Address: [address] [place] [address] Performed By: #### 2 4344-4 ####[facility] GENERAL LABORATORYCLIA [id number] [address] SET VENTILATOR RESPIRATORY RATE (BPM) 16 BPM Normal [facility] Comment on above: Order Comment: Speci men Type: VENOUS BLOOD SPECIMENOrdering Facility: [facility] Address: [address] [place] [address] Performed By: #### 2 4344-4 ####[facility] LABORATORYCLIA [id number] [address] STATES [facility] Sodium [Moles/Vol] 134 mmol/L Low 136-144 [facility] Comment on above: Order Comment: Speci men Type: VENOUS BLOOD SPECIMENOrdering Facility: [facility] Address: [address] [place] [address] Performed By: #### 2 4344-4 ####[facility] LABORATORYCLIA [id number] [address] HIGH SENSITIVITY TROPONIN To n 04-08-2025 Troponin T.cardiac High sensitivity method [Mass/Vol] 748 ng/L High <12 [facility] Comment on above: Order Comment: Speci men Type: BLOOD SPECIMENOrdering Facility: [facility] Address: [address] [place] [address] Performed By: #### H STNT ####[facility] LABORATORYCLIA [id number] [address] [place] Troponin T.cardiac High sensitivity method [Mass/Vol] 786 ng/L High <12 [facility] Comment on above: Order Comment: Speci men Type: BLOOD SPECIMENOrdering Facility: [facility] Address: [address] [place] [address] Performed By: #### H STNT ####[facility]ITALCLIA [id number] [address] [place] Hgb Bld-mCncon 04-08-2025 Hemoglobin (Bld) [Mass/Vol] 7.6 g/dL Low 13.0-17.0 [facility] Comment on above: Order Comment: Speci men Type: BLOOD SPECIMENOrdering Facility: [facility] Address: [address] [place] [address] Performed By: #### 7 18-7 ####[facility]ITALCLIA [id number] [address] [place] Magnesium SerPl-ncon 04-08 Magnesium [Mass/Vol] 2.5 mg/dL High 1.7-2.3 [facility] Comment on above: Order Comment: Speci men Type: BLOOD SPECIMENOrdering Facility: [facility] Address: [address] [place] [address] Performed By: #### 2 777-1, 92022-3, 71452-0, 3084-1, 84096-3, 2157-6 ####[facility]ITALCLIA [id number] [address] STATES [facility] NT-proBNP SerPl-[facility] Healthon 04-08 Natriuretic peptide.B prohormone N-Terminal [Mass/Vol] 5119 pg/mL High <125 [facility] Comment on above: Order Comment: Speci men Type: BLOOD SPECIMENOrdering Facility: [facility] Address: [address] [place] [address] Performed By: #### 3 3762-6 ####[facility]CLIA [id number] [address] [place] PT panel Coag (PPP)on 2024 INR Coag (PPP) [Relative time] 1.0 {INR} Normal 0.9-1.3 [facility] Comment on above: Order Comment: Speci men Type: BLOOD SPECIMENOrdering Facility: [facility] Address: [address] [place] [address] Result Comment: Antionette min K Antagonist (VKA) Therapeutic Range: INR 2 to 3 (Target INR of 2.5)Note: For patients treated with VKA drugs, such as warfarin, the [place] [employer] 2012 Guideline recommends a therapeutic INR range of 2 to 3 (target INR of 2.5). This recommendation includes high-risk patients with antiphospholipid syndrome with previous arterial or venous thromboembolism, current-generation mechanical or bioprosthetic aortic heart valve replacement.Note: Patients with mechanical aortic valve replacement and additional risk factors for thromboembolic events (atrial fibrillation, previous thromboembolism, LV dysfunction, hypercoagulable conditions) or an older generation mechanical AVR (i.e., ball in-Cage) or any mechanical MVR should have a INR therapeutic range of 2.5 to 3.5 (target INR of 3).Adelaida GH, et al. Chest 2012, 141:7S-47SNishnidia RA, et al. [facility] 2017, 70: 252-289 Performed By: #### 3 4528-0, 63635-9 ####[facility] LABORATORYCLIA [id number] [place] [address] [place] PT Coag (PPP) [Time] 10.9 s Normal 9.7-13.0 [facility] Comment on above: Order Comment: Jose Cruz johnson Type: BLOOD SPECIMENOrdering Facility: [facility] Address: [address] [place] [address] Performed By: #### 3 4528-0, 96313-0 ####[facility] LABORATORYCLIA [id number] [place] [address] [place] Phosphate SerPl-mCncon 04-08 Phosphate [Mass/Vol] 4.8 mg/dL Normal 2.7-4.8 [facility] Comment on above: Order Comment: Jose Cruz johnson Type: BLOOD SPECIMENOrdering Facility: [facility] Address: [address] [place] [address] Performed By: #### 2 777-1, 89516-9, 24006-4, 3083-1, 17262-5, 2157-02 ####[facility] LABORATORYCLIA [id number] [place] [id number] [place] OF [facility] Procalcitonin SerPl-mCncon 0 04-08-2025 Procalcitonin [Mass/Vol] 0.22 ng/mL High <0.09 [facility] Comment on above: Order Comment: Speci men Type: BLOOD SPECIMENOrdering Facility: [facility] Address: [address] [place] [address] Result Comment: For a guided interpretation of test results, please visit the Change in Procalcitonin Calculator, [email or web address]. Performed By: #### 2 777-1, 07403-0, 33454-1, 3083-1, 74190-9, 2157-02 ####[facility] LABORATORYCLIA [id number] [place] [id number] [place] [facility] Prot/Creat Uron 04-08-2025 Protein/Creatinine (U) [Mass ratio] 0.57 mg/mg High <0.15 [facility] Comment on above: Order Comment: Speci men Type: URINE SPECIMENOrdering Facility: [facility] Address: [address] [place] [address] Result Comment: Adul t Proteinuria Categories:<0.15 mg/mg is considered normal to mildly increased0.15 - 0.50 mg/mg is considered moderately increased>0.50 mg/mg is considered severely increasedKDIGO. (2013). KDIGO 2012 Clinical Practice Guideline for the Evaluation and Management of Chronic Kidney Disease. Official Journal of the International Society of Nephrology, 3(1), 1-150. Performed By: #### 3 5678-2, 2890-2 ####[facility] LABORATORYCLIA [id number] [place] [id number] [place] [facility] Protein/Creatinine (U) [Mass ratio]on 04-08-2025 Creatinine (U) [Mass/Vol] 100.3 mg/dL Normal 46.8-314.5 [facility] Comment on above: Order Comment: Speci men Type: URINE SPECIMENOrdering Facility: [facility] Address: [address] [place] [address] Performed By: #### 3 5678-2, 2890-2 ####[facility] LABORATORYCLIA [id number] [place] [id number] [place] [facility] Protein (U) [Mass/Vol] 57 mg/dL High 0-20 [facility] Comment on above: Order Comment: Speci men Type: URINE SPECIMENOrdering Facility: [facility] Address: [address] [place] [address] Performed By: #### 3 5678-2, 2890-2 ####[facility] LABORATORYCLIA [id number] [place] [id number] [facility] [place] Sodium ?Tm Ur-sCncon 025 Sodium Unsp time (U) [Moles/Vol] 26 mmol/L Normal 14-216 [facility] Comment on above: Order Comment: Speci men Type: URINE SPECIMENOrdering Facility: [facility] Address: [address] [place] [address] Performed By: #### 3 5678-2, 289-2 ####[facility] LABORATORYCLIA [id number] [place] [id number] [place] US ASCITES SURVEYon 04-08-20 25 US ASCITES SURVEY Normal [facility] Urate SerPl-mCncon 5 Urate [Mass/Vol] 6.4 mg/dL Normal 4.0-8.1 [facility] Comment on above: Order Comment: Speci men Type: BLOOD SPECIMENOrdering Facility: [facility] Address: [address] [place] [address] Performed By: #### 2 777-1, 38914-8, 59696-6, 3084-1, 56931-4, 2157-6 ####[facility] LABORATORYCLIA [id number] [address] [place] Urinalysis complete panel (U )on 04-08-2025 Bacteria LM.HPF (Urine sed) [#/Area] Moderate Abnormal None Seen [facility] Comment on above: Order Comment: Speci men Type: URINE SPECIMENOrdering Facility: [facility] Address: [address] [place] [address] Performed By: #### 2 4356-8 ####[facility] LABORATORYCLIA [id number] [place] [address] [place] Bilirubin Ql (U) Negative Normal Negative [facility] Comment on above: Order Comment: Speci men Type: URINE SPECIMENOrdering Facility: [facility] Address: [address] [place] [address] Performed By: #### 2 4356-8 ####[facility] LABORATORYCLIA [id number] [address] [place] Clarity (Unsp spec) Dense Turbid Abnormal Clear [facility] Comment on above: Order Comment: Speci men Type: URINE SPECIMENOrdering Facility: [facility] Address: [address] [place] [address] Performed By: #### 2 4356-8 ####[facility] LABORATORYCLIA [id number] [address] [place] Color (U) Light Sallis Abnormal yellow [facility] Comment on above: Order Comment: Speci men Type: URINE SPECIMENOrdering Facility: [facility] Address: [address] [place] [address] Performed By: #### 2 4356-8 ####[facility] LABORATORYCLIA [id number] [address] OF [place] Epithelial cells LM.HPF (Urine sed) [#/Area] Few Normal [facility] Comment on above: Order Comment: Speci men Type: URINE SPECIMENOrdering Facility: [facility] Address: [address] [place] [address] Performed By: #### 2 4356-8 ####[facility] LABORATORYCLIA [id number] [address] [place] Glucose Test strip (U) [Mass/Vol] Negative Normal Trace, Negative [facility] Comment on above: Order Comment: Speci men Type: URINE SPECIMENOrdering Facility: [facility] Address: [address] [place] [address] Performed By: #### 2 4356-8 ####[facility] LABORATORYCLIA [id number] [address] [place] Hemoglobin Ql (U) 3+ Abnormal Negative, Trace [facility] Comment on above: Order Comment: Speci men Type: URINE SPECIMENOrdering Facility: [facility] Address: [address] [place] [address] Performed By: #### 2 4356-8 ####[facility] LABORATORYCLIA [id number] [address] [place] Ketones Ql (U) Negative Normal Negative, Trace [facility] Comment on above: Order Comment: Speci men Type: URINE SPECIMENOrdering Facility: [facility] Address: [address] [place] [address] Performed By: #### 2 4356-8 ####[facility] LABORATORYCLIA [id number] [address] [place] Leukocyte esterase Test strip Ql (U) 75 Mayra/uL Abnormal Negative, 25 Mayra/uL [facility] Comment on above: Order Comment: Speci men Type: URINE SPECIMENOrdering Facility: [facility] Address: [address] [place] [address] Performed By: #### 2 4356-8 ####[facility] LABORATORYCLIA [id number] [address] [place] Nitrite Ql (U) Negative Normal Negative [facility] Comment on above: Order Comment: Speci men Type: URINE SPECIMENOrdering Facility: [facility] Address: [address] [place] [address] Performed By: #### 2 4356-8 ####[facility] LABORATORYCLIA [id number] [address] [place] pH (U) 5.0 [pH] Normal 5.0-8.0 [facility] Comment on above: Order Comment: Speci men Type: URINE SPECIMENOrdering Facility: [facility] Address: [address] [place] [address] Performed By: #### 2 4356-8 ####[facility] LABORATORYCLIA [id number] [address] Protein (U) [Mass/Vol] 1+ Abnormal Trace, Negative [facility] Comment on above: Order Comment: Speci men Type: URINE SPECIMENOrdering Facility: [facility] Address: [address] [place] [address] Performed By: #### 2 4356-8 ####[facility] LABORATORYCLIA [id number] [address] STATES [facility] RBC LM.HPF (Urine sed) [#/Area] /[HPF] Abnormal 0-3 /HPF [facility] Comment on above: Order Comment: Speci men Type: URINE SPECIMENOrdering Facility: [facility] Address: [address] [place] [address] Performed By: #### 2 4356-8 ####[facility] LABORATORYCLIA [id number] [address] Specific gravity (U) [Rel density] 1.016 Normal 1.005-1.030 [facility] Comment on above: Order Comment: Speci men Type: URINE SPECIMENOrdering Facility: [facility] Address: [address] [place] [address] Performed By: #### 2 4356-8 ####[facility] LABORATORYCLIA [id number] [address] Urobilinogen Ql (U) Normal Normal Normal [facility] Comment on above: Order Comment: Speci men Type: URINE SPECIMENOrdering Facility: [facility] Address: [address] [place] [address] Performed By: #### 2 4356-8 ####[facility] LABORATORYCLIA [id number] [address] [place] WBC LM.HPF (Urine sed) [#/Area] /[HPF] Abnormal 0-5 /HPF [facility] Comment on above: Order Comment: Speci men Type: URINE SPECIMENOrdering Facility: [facility] Address: [address] [place] [address] Performed By: #### 2 4356-8 ####[facility] LABORATORYCLIA [id number] [place] [address] [place] XR ABDOMEN 1V SUPINEon 04-08 XR ABDOMEN 1V SUPINE Normal [facility] XR CHEST 1V FRONTALon 2024 XR CHEST 1V FRONTAL Normal [facility] aPTT PPPon 04-08-2025 aPTT Coag (PPP) [Time] 70.0 s High 23.0-32.4 [facility] Comment on above: Order Comment: Speci men Type: BLOOD SPECIMENOrdering Facility: [facility] Address: [address] [place] [address] Performed By: #### 1 4979-9 ####[facility] LABORATORYCLIA [id number] [address] [place] aPTT Coag (PPP) [Time] 43.3 s High 23.0-32.4 [facility] Comment on above: Order Comment: Speci men Type: BLOOD SPECIMENOrdering Facility: [facility] Address: [address] [place] [address] Performed By: #### 1 4979-9 ####[facility] LABORATORYCLIA [id number] [place] [address] [place] aPTT Coag (PPP) [Time] 32.2 s Normal 23.0-32.4 [facility] Comment on above: Order Comment: Speci men Type: BLOOD SPECIMENOrdering Facility: [facility] Address: [address] [place] [address] Performed By: #### 3 4528-0, 82462-2 ####[facility] LABORATORYCLIA [id number] [place] [address] [place] Bacteria Spec Resp Culton Bacteria identified Respiratory culture Nom (Unsp spec) CULTURE, RESPIRATORY: Rare Normal respiratory doris present GRAM STAIN: No organisms seen Rare Polymorphonuclear leukocytes Few Epithelial cells Normal [facility] Comment on above: Performed By: #### 3 2355-0 ####[facility] LABORATORYCLIA [id number] [address] CBC panel Auto (Bld)on 04-07 Erythrocyte distribution width (RBC) [Ratio] 15.1 % High 11.5-15.0 [facility] Comment on above: Order Comment: Speci men Type: BLOOD SPECIMENOrdering Facility: [facility] Address: [address] [place] [address] Performed By: #### 5 8410-2 ####[facility] LABORATORYCLIA [id number] [address] Hematocrit (Bld) [Volume fraction] 30.3 % Low 39.0-51.0 [facility] Comment on above: Order Comment: Speci men Type: BLOOD SPECIMENOrdering Facility: [facility] Address: [address] [place] [address] Performed By: #### 5 8410-2 ####[facility] LABORATORYCLIA [id number] [address] OF [facility] Hemoglobin (Bld) [Mass/Vol] 9.3 g/dL Low 13.0-17.0 [facility] Comment on above: Order Comment: Speci men Type: BLOOD SPECIMENOrdering Facility: [facility] Address: [address] [place] [address] Performed By: #### 5 8410-2 ####[facility] LABORATORYCLIA [id number] [address] MCH (RBC) [Entitic mass] 27.2 pg Normal 26.0-34.0 [facility] Comment on above: Order Comment: Speci men Type: BLOOD SPECIMENOrdering Facility: [facility] Address: [address] [place] [address] Performed By: #### 5 8410-2 ####[facility] LABORATORYCLIA [id number] [address] MCHC (RBC) [Mass/Vol] 30.7 g/dL Normal 30.5-36.0 [facility] Comment on above: Order Comment: Speci men Type: BLOOD SPECIMENOrdering Facility: [facility] Address: [address] [place] [address] Performed By: #### 5 8410-2 ####[facility] LABORATORYCLIA [id number] [address] MCV (RBC) [Entitic vol] 88.6 fL Normal 80.0-100.0 [facility] Comment on above: Order Comment: Speci men Type: BLOOD SPECIMENOrdering Facility: [facility] Address: [address] [place] [address] Performed By: #### 5 8410-2 ####[facility] LABORATORYCLIA [id number] [address] [place] Nucleated RBC (Bld) [#/Vol] 10*3/uL Normal <0.01 [facility] Comment on above: Order Comment: Speci men Type: BLOOD SPECIMENOrdering Facility: [facility] Address: [address] [place] [address] Performed By: #### 5 8410-2 ####[facility] LABORATORYCLIA [id number] [address] Platelet mean volume (Bld) [Entitic vol] 10.8 fL Normal 9.0-12.7 [facility] Comment on above: Order Comment: Speci men Type: BLOOD SPECIMENOrdering Facility: [facility] Address: [address] [place] [address] Performed By: #### 5 8410-2 ####[facility] LABORATORYCLIA [id number] [address] [place] Platelets (Bld) [#/Vol] 225 10*3/uL Normal 150-400 [facility] Comment on above: Order Comment: Speci men Type: BLOOD SPECIMENOrdering Facility: [facility] Address: [address] [place] [address] Performed By: #### 5 8410-2 ####[facility] LABORATORYCLIA [id number] [place] [address] [place] RBC (Bld) [#/Vol] 3.42 10*6/uL Low 4.20-6.00 [facility] Comment on above: Order Comment: Speci men Type: BLOOD SPECIMENOrdering Facility: [facility] Address: [address] [place] [address] Performed By: #### 5 8410-2 ####[facility] LABORATORYCLIA [id number] [address] STATES OF [facility] WBC (Bld) [#/Vol] 12.36 10*3/uL High 3.70-11.00 [facility] Comment on above: Order Comment: Speci men Type: BLOOD SPECIMENOrdering Facility: [facility] Address: [address] [place] [address] Performed By: #### 5 8410-2 ####[facility] LABORATORYCLIA [id number] [address] CONSULT PROGon 04-07-2025 CONSULT PROG Normal [facility] Comprehensive metabolic 2000 panelon 04-07-2025 Albumin [Mass/Vol] 3.6 g/dL Low 3.9-4.9 [facility] Comment on above: Order Comment: Speci men Type: BLOOD SPECIMENOrdering Facility: [facility] Address: [address] [place] [address] Performed By: #### 2 4323-8, 2777, ####[facility] LABORATORYCLIA [id number] [address] [place] ALP [Catalytic activity/Vol] 71 U/L Normal 38-113 [facility] Comment on above: Order Comment: Speci men Type: BLOOD SPECIMENOrdering Facility: [facility] Address: [address] [place] [address] Performed By: #### 2 4323-8, 2777-1, 79855-9 ####[facility] LABORATORYCLIA [id number] [address] [place] ALT With P-5'-P [Catalytic activity/Vol] 11 U/L Normal 10-54 [facility] Comment on above: Order Comment: Speci men Type: BLOOD SPECIMENOrdering Facility: [facility] Address: [address] [place] [address] Performed By: #### 2 4323-8, 2776-09, ####[facility] LABORATORYCLIA [id number] [address] STATES OF [facility] Anion gap [Moles/Vol] 17 mmol/L High 8-15 [facility] Comment on above: Order Comment: Speci men Type: BLOOD SPECIMENOrdering Facility: [facility] Address: [address] [place] [address] Performed By: #### 2 4323-8, 2776-09, ####[facility] LABORATORYCLIA [id number] [address] STATES OF [facility] AST With P-5'-P [Catalytic activity/Vol] 46 U/L High 14-40 [facility] Comment on above: Order Comment: Speci men Type: BLOOD SPECIMENOrdering Facility: [facility] Address: [address] [place] [address] Performed By: #### 2 4323-8, 2776-09, ####[facility] LABORATORYCLIA [id number] [address] STATES OF [facility] Bilirubin [Mass/Vol] 0.6 mg/dL Normal 0.2-1.3 [facility] Comment on above: Order Comment: Speci men Type: BLOOD SPECIMENOrdering Facility: [facility] Address: [address] [place] [address] Performed By: #### 2 4323-8, 2776-09, ####[facility] LABORATORYCLIA [id number] [address] [place] Calcium [Mass/Vol] 8.2 mg/dL Low 8.5-10.2 [facility] Comment on above: Order Comment: Speci men Type: BLOOD SPECIMENOrdering Facility: [facility] Address: [address] [place] [address] Performed By: #### 2 4323-8, 2776-09, ####[facility] LABORATORYCLIA [id number] [place] [id number] [place] Chloride [Moles/Vol] 99 mmol/L Normal 98-107 [facility] Comment on above: Order Comment: Speci men Type: BLOOD SPECIMENOrdering Facility: [facility] Address: [address] [place] [address] Performed By: #### 2 4323-8, 2776-09, ####[facility] LABORATORYCLIA [id number] [place] [address] [place] CO2 [Moles/Vol] 22 mmol/L Normal 22-30 [facility] Comment on above: Order Comment: Speci men Type: BLOOD SPECIMENOrdering Facility: [facility] Address: [address] [place] [address] Performed By: #### 2 4323-8, 2776-09, ####[facility] LABORATORYCLIA [id number] [place] [address] [place] Creatinine [Mass/Vol] 1.78 mg/dL High 0.73-1.22 [facility] Comment on above: Order Comment: Speci men Type: BLOOD SPECIMENOrdering Facility: [facility] Address: [address] [place] [address] Performed By: #### 2 4323-8, 2776-09, ####[facility] LABORATORYCLIA [id number] [place] [id number] [place] eGFRcr SerPlBld CKD-EPI 2020 40 mL/min/1.73m??? Low >=60 [facility] Comment on above: Order Comment: Speci men Type: BLOOD SPECIMENOrdering Facility: [facility] Address: [address] [place] [address] Result Comment: Mary Kay mated Glomerular Filtration Rate (eGFR) is calculated using the 2020 CKD-EPI creatinine equation. This equation utilizes serum creatinine, sex, and age as parameters. The creatinine assay has traceable calibration to isotope dilution-mass spectrometry. Refer to KDIGO guidelines for clinical interpretation. In patients with unstable renal function, e.g. those with acute kidney injury, the eGFR may not accurately reflect actual GFR. Performed By: #### 2 4323-8, 2777, ####[facility] LABORATORYCLIA [id number] [place] [address] [place] Glucose [Mass/Vol] 115 mg/dL High 74-99 [facility] Comment on above: Order Comment: Jose Cruz johnson Type: BLOOD SPECIMENOrdering Facility: [facility] Address: [address] [place] [address] Result Comment: The [place] Diabetes Association (ADA) provides guidance for cutoff values for fasting glucose and random glucose. The ADA defines fasting as no caloric intake for at least 8 hours. Fasting plasma glucose results between 100 to 125 mg/dL indicate increased risk for diabetes (prediabetes).Fasting plasma glucose results greater than or equal to 126 mg/dL meet the criteria for diagnosis of diabetes. In the absence of unequivocal hyperglycemia, results should be confirmed by repeat testing. In a patient with classic symptoms of hyperglycemia or hyperglycemic crisis, random plasma glucose results greater than or equal to 200 mg/dL meet the criteria for diagnosis of diabetes.Reference: Standards of Medical Care in Diabetes 2016, [place] [employer] Association. Diabetes Care. 2016.39(Suppl 1). Performed By: #### 2 4323-8, 2776-09, ####[facility] LABORATORYCLIA [id number] [place] [address] [place] Potassium [Moles/Vol] 4.1 mmol/L Normal 3.7-5.1 [facility] Comment on above: Order Comment: Jose Cruz johnson Type: BLOOD SPECIMENOrdering Facility: [facility] Address: [address] [place] [id number] Performed By: #### 2 4323-8, 2777, 00336-1 ####[facility] LABORATORYCLIA [id number] [place] [address] [place] Protein [Mass/Vol] 6.7 g/dL Normal 6.3-8.0 [facility] Comment on above: Order Comment: Speci men Type: BLOOD SPECIMENOrdering Facility: [facility] Address: [address] [place] [address] Performed By: #### 2 4323-8, 2776-09, ####[facility] LABORATORYCLIA [id number] [place] [address] [place] Sodium [Moles/Vol] 138 mmol/L Normal 136-144 [facility] Comment on above: Order Comment: Speci men Type: BLOOD SPECIMENOrdering Facility: [facility] Address: [address] [place] [address] Performed By: #### 2 4323-8, 2776-09, ####[facility] LABORATORYCLIA [id number] [address] STATES OF [facility] Urea nitrogen [Mass/Vol] 21 mg/dL Normal 9-24 [facility] Comment on above: Order Comment: Speci men Type: BLOOD SPECIMENOrdering Facility: [facility] Address: [address] [place] [address] Performed By: #### 2 4323-8, 2776-09, ####[facility] LABORATORYCLIA [id number] [place] [address] [place] ECG COMPLETEon 04-07-2025 ECG COMPLETE Normal [facility] HIGH SENSITIVITY TROPONIN To n 04-07-2025 Troponin T.cardiac High sensitivity method [Mass/Vol] 810 ng/L High <12 [facility] Comment on above: Order Comment: Speci men Type: BLOOD SPECIMENOrdering Facility: [facility] Address: [address] [place] [address] Performed By: #### H STNT ####[facility] LABORATORYCLIA [id number] [place] [address] [place] Magnesium SerPl-mCncon 04-07 Magnesium [Mass/Vol] 1.9 mg/dL Normal 1.7-2.3 [facility] Comment on above: Order Comment: Speci men Type: BLOOD SPECIMENOrdering Facility: [facility] Address: [address] [place] [address] Performed By: #### 2 4323-8, 2776-09, ####[facility] LABORATORYCLIA [id number] [place] [address] [place] Phosphate SerPl-mCncon 04-07 Phosphate [Mass/Vol] 5.1 mg/dL High 2.7-4.8 [facility] Comment on above: Order Comment: Speci men Type: BLOOD SPECIMENOrdering Facility: [facility] Address: [address] [place] [address] Performed By: #### 2 4323-8, 2776-09, ####[facility] LABORATORYCLIA [id number] [address] [place] ALLIED HEALTHon 04-06-2025 ALLIED HEALTH Normal [facility] ARTERIAL BLOOD GASESon 04-06 Base excess Calc (Bld) [Moles/Vol] 1 mmol/L Normal 0-2 [facility] Comment on above: Order Comment: Speci men Type: ARTERIAL BLOOD SPECIMENOrdering Facility: [facility] Address: [address] [place] [address] Performed By: #### A LLBG ####[facility] LABORATORYCLIA [id number] [address] [place] Body temperature 99.5 [degF] Normal [facility] Comment on above: Order Comment: Speci men Type: ARTERIAL BLOOD SPECIMENOrdering Facility: [facility] Address: [address] [place] [address] Performed By: #### A LLBG ####[facility] LABORATORYCLIA [id number] [address] [place] Calcium.ionized (BldV) [Mass/Vol] 1.15 mmol/L Normal 1.08-1.30 [facility] Comment on above: Order Comment: Speci men Type: ARTERIAL BLOOD SPECIMENOrdering Facility: [facility] Address: [address] [place] [address] Performed By: #### A LLBG ####[facility] LABORATORYCLIA [id number] [address] Calcium.ionized adjusted to pH 7.4 (BldA) [Moles/Vol] 1.14 mmol/L Normal 1.08-1.30 [facility] Comment on above: Order Comment: Speci men Type: ARTERIAL BLOOD SPECIMENOrdering Facility: [facility] Address: [address] [place] [address] Performed By: #### A LLBG ####[facility] LABORATORYCLIA [id number] [address] Carboxyhemoglobin (BldA) [Mass fraction] 0.8 % Normal 0.0-2.0 [facility] Comment on above: Order Comment: Speci men Type: ARTERIAL BLOOD SPECIMENOrdering Facility: [facility] Address: [address] [place] [address] Result Comment: Carb oxyhemoglobin Reference Range for Smokers: 2.0-8.0% Performed By: #### A LLBG ####[facility] LABORATORYCLIA [id number] [address] STATES OF [facility] Chloride [Moles/Vol] 105 mmol/L Normal 97-105 [facility] Comment on above: Order Comment: Speci men Type: ARTERIAL BLOOD SPECIMENOrdering Facility: [facility] Address: [address] [place] [address] Performed By: #### A LLBG ####[facility] LABORATORYCLIA [id number] [address] [place] CO2 (Bld) [Partial pressure] 44 mm Hg Normal 36-46 [facility] Comment on above: Order Comment: Speci men Type: ARTERIAL BLOOD SPECIMENOrdering Facility: [facility] Address: [address] [place] [address] Performed By: #### A LLBG ####[facility] LABORATORYCLIA [id number] [address] CO2 adjusted to patient's actual temperature (Bld) [Partial pressure] 45 mmHg Normal 36-46 [facility] Comment on above: Order Comment: Speci men Type: ARTERIAL BLOOD SPECIMENOrdering Facility: [facility] Address: [address] [place] [address] Performed By: #### A LLBG ####[facility] LABORATORYCLIA [id number] [address] [place] FIO2 85 % Normal [facility] Comment on above: Order Comment: Speci men Type: ARTERIAL BLOOD SPECIMENOrdering Facility: [facility] Address: [address] [place] [address] Performed By: #### A LLBG ####[facility] LABORATORYCLIA [id number] [address] Glucose [Mass/Vol] 130 mg/dL High 60-105 [facility] Comment on above: Order Comment: Speci men Type: ARTERIAL BLOOD SPECIMENOrdering Facility: [facility] Address: [address] [place] [address] Performed By: #### A LLBG ####[facility] LABORATORYCLIA [id number] [address] [place] HCO3 (Bld) [Moles/Vol] 26 mmol/L Normal 22-26 [facility] Comment on above: Order Comment: Speci men Type: ARTERIAL BLOOD SPECIMENOrdering Facility: [facility] Address: [address] [place] [address] Performed By: #### A LLBG ####[facility] LABORATORYCLIA [id number] [address] Hematocrit (Bld) [Volume fraction] 29.8 % Low 39.0-51.0 [facility] Comment on above: Order Comment: Speci men Type: ARTERIAL BLOOD SPECIMENOrdering Facility: [facility] Address: [address] [place] [address] Performed By: #### A LLBG ####[facility] LABORATORYCLIA [id number] [address] [place] Hemoglobin (Bld) [Mass/Vol] 9.6 g/dL Low 13.0-17.0 [facility] Comment on above: Order Comment: Speci men Type: ARTERIAL BLOOD SPECIMENOrdering Facility: [facility] Address: [address] [place] [address] Performed By: #### A LLBG ####[facility] LABORATORYCLIA [id number] [address] [place] Lactate [Moles/Vol] 0.8 mmol/L Normal 0.5-2.2 [facility] Comment on above: Order Comment: Speci men Type: ARTERIAL BLOOD SPECIMENOrdering Facility: [facility] Address: [address] [place] [address] Performed By: #### A LLBG ####[facility] LABORATORYCLIA [id number] [address] LITERS 60 Liters/min Normal [facility] Comment on above: Order Comment: Speci men Type: ARTERIAL BLOOD SPECIMENOrdering Facility: [facility] Address: [address] [place] [address] Performed By: #### A LLBG ####[facility] LABORATORYCLIA [id number] [address] Methemoglobin (Bld) [Mass fraction] 1.0 % Normal 0.0-1.5 [facility] Comment on above: Order Comment: Speci men Type: ARTERIAL BLOOD SPECIMENOrdering Facility: [facility] Address: [address] [place] [address] Performed By: #### A LLBG ####[facility] LABORATORYCLIA [id number] [address] O2 THERAPY Hi-Flow Nasal Cannula-Heated Normal [facility] Comment on above: Order Comment: Speci men Type: ARTERIAL BLOOD SPECIMENOrdering Facility: [facility] Address: [address] [place] [address] Performed By: #### A LLBG ####[facility]ORATORYCLIA [id number] [address] [place] Oxygen (Bld) [Partial pressure] 65 mm Hg Low 85-95 [facility] Comment on above: Order Comment: Speci men Type: ARTERIAL BLOOD SPECIMENOrdering Facility: [facility] Address: [address] [place] [address] Performed By: #### A LLBG ####[facility] LABORATORYCLIA [id number] [address] [place] Oxygen adjusted to patient's actual temperature (Bld) [Partial pressure] 67 mmHg Low 85-95 [facility] Comment on above: Order Comment: Speci men Type: ARTERIAL BLOOD SPECIMENOrdering Facility: [facility] Address: [address] [place] [address] Performed By: #### A LLBG ####[facility] LABORATORYCLIA [id number] [address] [place] Oxyhemoglobin (BldA) [Mass fraction] 89 % Low 95-98 [facility] Comment on above: Order Comment: Speci men Type: ARTERIAL BLOOD SPECIMENOrdering Facility: [facility] Address: [address] [place] [address] Performed By: #### A LLBG ####[facility] LABORATORYCLIA [id number] [address] [place] pH (Bld) 7.39 [pH] Normal 7.35-7.45 [facility] Comment on above: Order Comment: Speci men Type: ARTERIAL BLOOD SPECIMENOrdering Facility: [facility] Address: [address] [place] [address] Performed By: #### A LLBG ####[facility] LABORATORYCLIA [id number] [address] [place] pH adjusted to patient's actual temperature (Bld) 7.38 Normal 7.35-7.45 [facility] Comment on above: Order Comment: Speci men Type: ARTERIAL BLOOD SPECIMENOrdering Facility: [facility] Address: [address] [place] [address] Performed By: #### A LLBG ####[facility]ORATORYCLIA [id number] [address] PO2 / FIO2 RATIO 76 mmHg Low >300 [facility] Comment on above: Order Comment: Speci men Type: ARTERIAL BLOOD SPECIMENOrdering Facility: [facility] Address: [address] [place] [address] Performed By: #### A LLBG ####[facility] LABORATORYCLIA [id number] [address] [place] Potassium [Moles/Vol] 4.1 mmol/L Normal 3.5-5.0 [facility] Comment on above: Order Comment: Speci men Type: ARTERIAL BLOOD SPECIMENOrdering Facility: [facility] Address: [address] [place] [address] Performed By: #### A LLBG ####[facility] LABORATORYCLIA [id number] [address] [place] Sodium [Moles/Vol] 137 mmol/L Normal 136-144 [facility] Comment on above: Order Comment: Speci men Type: ARTERIAL BLOOD SPECIMENOrdering Facility: [facility] Address: [address] [place] [address] Performed By: #### A LLBG ####[facility] LABORATORYCLIA [id number] [address] [place] Base excess Calc (Bld) [Moles/Vol] 1 mmol/L Normal 0-2 [facility] Comment on above: Order Comment: Speci men Type: ARTERIAL BLOOD SPECIMENOrdering Facility: [facility] Address: [address] [place] [address] Performed By: #### A LLBG ####[facility] LABORATORYCLIA [id number] [address] [place] Body temperature 99.14 [degF] Normal [facility] Comment on above: Order Comment: Speci men Type: ARTERIAL BLOOD SPECIMENOrdering Facility: [facility] Address: [address] [place] [address] Performed By: #### A LLBG ####[facility] LABORATORYCLIA [id number] [address] [place] Calcium.ionized (BldV) [Mass/Vol] 1.16 mmol/L Normal 1.08-1.30 [facility] Comment on above: Order Comment: Speci men Type: ARTERIAL BLOOD SPECIMENOrdering Facility: [facility] Address: [address] [place] [address] Performed By: #### A LLBG ####[facility] LABORATORYCLIA [id number] [address] Calcium.ionized adjusted to pH 7.4 (BldA) [Moles/Vol] 1.15 mmol/L Normal 1.08-1.30 [facility] Comment on above: Order Comment: Speci men Type: ARTERIAL BLOOD SPECIMENOrdering Facility: [facility] Address: [address] [place] [address] Performed By: #### A LLBG ####[facility] LABORATORYCLIA [id number] [address] STATES OF [facility] Carboxyhemoglobin (BldA) [Mass fraction] 0.7 % Normal 0.0-2.0 [facility] Comment on above: Order Comment: Speci men Type: ARTERIAL BLOOD SPECIMENOrdering Facility: [facility] Address: [address] [place] [address] Performed By: #### A LLBG ####[facility] LABORATORYCLIA [id number] [address] [place] Chloride [Moles/Vol] 106 mmol/L High 97-105 [facility] Comment on above: Order Comment: Speci men Type: ARTERIAL BLOOD SPECIMENOrdering Facility: [facility] Address: [address] [place] [address] Performed By: #### A LLBG ####[facility] LABORATORYCLIA [id number] [address] [place] CO2 (Bld) [Partial pressure] 43 mm Hg Normal 36-46 [facility] Comment on above: Order Comment: Speci men Type: ARTERIAL BLOOD SPECIMENOrdering Facility: [facility] Address: [address] [place] [address] Performed By: #### A LLBG ####[facility]ORATORYCLIA [id number] [address] CO2 adjusted to patient's actual temperature (Bld) [Partial pressure] 44 mmHg Normal 36-46 [facility] Comment on above: Order Comment: Speci men Type: ARTERIAL BLOOD SPECIMENOrdering Facility: [facility] Address: [address] [place] [address] Performed By: #### A LLBG ####[facility]ORATORYCLIA [id number] [address] [place] FIO2 100 % Normal [facility] Comment on above: Order Comment: Speci men Type: ARTERIAL BLOOD SPECIMENOrdering Facility: [facility] Address: [address] [place] [address] Performed By: #### A LLBG ####[facility]ORATORYCLIA [id number] [address] [place] Glucose [Mass/Vol] 150 mg/dL High 60-105 [facility] Comment on above: Order Comment: Speci men Type: ARTERIAL BLOOD SPECIMENOrdering Facility: [facility] Address: [address] [place] [address] Performed By: #### A LLBG ####[facility]ORATORYCLIA [id number] [address] [place] HCO3 (Bld) [Moles/Vol] 26 mmol/L Normal 22-26 [facility] Comment on above: Order Comment: Speci men Type: ARTERIAL BLOOD SPECIMENOrdering Facility: [facility] Address: [address] [place] [address] Performed By: #### A LLBG ####[facility] LABORATORYCLIA [id number] [address] Hematocrit (Bld) [Volume fraction] 30.1 % Low 39.0-51.0 [facility] Comment on above: Order Comment: Speci men Type: ARTERIAL BLOOD SPECIMENOrdering Facility: [facility] Address: [address] [place] [address] Performed By: #### A LLBG ####[facility] LABORATORYCLIA [id number] [address] [place] Hemoglobin (Bld) [Mass/Vol] 9.7 g/dL Low 13.0-17.0 [facility] Comment on above: Order Comment: Speci men Type: ARTERIAL BLOOD SPECIMENOrdering Facility: [facility] Address: [address] [place] [address] Performed By: #### A LLBG ####[facility] LABORATORYCLIA [id number] [address] [place] Lactate [Moles/Vol] 1.2 mmol/L Normal 0.5-2.2 [facility] Comment on above: Order Comment: Speci men Type: ARTERIAL BLOOD SPECIMENOrdering Facility: [facility] Address: [address] [place] [address] Performed By: #### A LLBG ####[facility] LABORATORYCLIA [id number] [address] OF [facility] Methemoglobin (Bld) [Mass fraction] 0.9 % Normal 0.0-1.5 [facility] Comment on above: Order Comment: Speci men Type: ARTERIAL BLOOD SPECIMENOrdering Facility: [facility] Address: [address] [place] [address] Performed By: #### A LLBG ####[facility] LABORATORYCLIA [id number] [address] [place] O2 THERAPY NR=Non-Rebreather Mask Normal [facility] Comment on above: Order Comment: Speci men Type: ARTERIAL BLOOD SPECIMENOrdering Facility: [facility] Address: [address] [place] [address] Performed By: #### A LLBG ####[facility] LABORATORYCLIA [id number] [address] [place] Oxygen (Bld) [Partial pressure] 53 mm Hg Low 85-95 [facility] Comment on above: Order Comment: Speci men Type: ARTERIAL BLOOD SPECIMENOrdering Facility: [facility] Address: [address] [place] [address] Performed By: #### A LLBG ####[facility] LABORATORYCLIA [id number] [address] Oxygen adjusted to patient's actual temperature (Bld) [Partial pressure] 54 mmHg Low 85-95 [facility] Comment on above: Order Comment: Speci men Type: ARTERIAL BLOOD SPECIMENOrdering Facility: [facility] Address: [address] [place] [address] Performed By: #### A LLBG ####[facility] LABORATORYCLIA [id number] [address] Oxyhemoglobin (BldA) [Mass fraction] 84 % Low 95-98 [facility] Comment on above: Order Comment: Speci men Type: ARTERIAL BLOOD SPECIMENOrdering Facility: [facility] Address: [address] [place] [address] Performed By: #### A LLBG ####[facility] LABORATORYCLIA [id number] [address] [place] pH (Bld) 7.40 [pH] Normal 7.35-7.45 [facility] Comment on above: Order Comment: Speci men Type: ARTERIAL BLOOD SPECIMENOrdering Facility: [facility] Address: [address] [place] [address] Performed By: #### A LLBG ####[facility] LABORATORYCLIA [id number] [address] STATES [facility] pH adjusted to patient's actual temperature (Bld) 7.39 Normal 7.35-7.45 [facility] Comment on above: Order Comment: Speci men Type: ARTERIAL BLOOD SPECIMENOrdering Facility: [facility] Address: [address] [place] [address] Performed By: #### A LLBG ####[facility]ORATORYCLIA [id number] [address] [place] PO2 / FIO2 RATIO 53 mmHg Low >300 [facility] Comment on above: Order Comment: Speci men Type: ARTERIAL BLOOD SPECIMENOrdering Facility: [facility] Address: [address] [place] [address] Performed By: #### A LLBG ####[facility] LABORATORYCLIA [id number] [address] [place] Potassium [Moles/Vol] 4.3 mmol/L Normal 3.5-5.0 [facility] Comment on above: Order Comment: Speci men Type: ARTERIAL BLOOD SPECIMENOrdering Facility: [facility] Address: [address] [place] [address] Performed By: #### A LLBG ####[facility] LABORATORYCLIA [id number] [address] [place] Sodium [Moles/Vol] 138 mmol/L Normal 136-144 [facility] Comment on above: Order Comment: Speci men Type: ARTERIAL BLOOD SPECIMENOrdering Facility: [facility] Address: [address] [place] [address] Performed By: #### A LLBG ####[facility] LABORATORYCLIA [id number] [address] [place] Base excess Calc (Bld) [Moles/Vol] 0 mmol/L Normal 0-2 [facility] Comment on above: Order Comment: Speci men Type: ARTERIAL BLOOD SPECIMENOrdering Facility: [facility] Address: [address] [place] [address] Performed By: #### A LLBG ####[facility] LABORATORYCLIA [id number] [address] [place] Body temperature 99.86 [degF] Normal [facility] Comment on above: Order Comment: Speci men Type: ARTERIAL BLOOD SPECIMENOrdering Facility: [facility] Address: [address] [place] [address] Performed By: #### A LLBG ####[facility] LABORATORYCLIA [id number] [address] [place] Calcium.ionized (BldV) [Mass/Vol] 1.23 mmol/L Normal 1.08-1.30 [facility] Comment on above: Order Comment: Speci men Type: ARTERIAL BLOOD SPECIMENOrdering Facility: [facility] Address: [address] [place] [address] Performed By: #### A LLBG ####[facility] LABORATORYCLIA [id number] [place] [address] [place] Calcium.ionized adjusted to pH 7.4 (BldA) [Moles/Vol] 1.22 mmol/L Normal 1.08-1.30 [facility] Comment on above: Order Comment: Speci men Type: ARTERIAL BLOOD SPECIMENOrdering Facility: [facility] Address: [address] [place] [address] Performed By: #### A LLBG ####[facility] LABORATORYCLIA [id number] [address] [place] Carboxyhemoglobin (BldA) [Mass fraction] 1.1 % Normal 0.0-2.0 [facility] Comment on above: Order Comment: Speci men Type: ARTERIAL BLOOD SPECIMENOrdering Facility: [facility] Address: [address] [place] [address] Result Comment: Carb oxyhemoglobin Reference Range for Smokers: 2.0-8.0% Performed By: #### A LLBG ####[facility] LABORATORYCLIA [id number] [place] [address] [place] Chloride [Moles/Vol] 105 mmol/L Normal 97-105 [facility] Comment on above: Order Comment: Speci men Type: ARTERIAL BLOOD SPECIMENOrdering Facility: [facility] Address: [address] [place] [address] Performed By: #### A LLBG ####[facility] LABORATORYCLIA [id number] [place] [address] [place] CO2 (Bld) [Partial pressure] 42 mm Hg Normal 36-46 [facility] Comment on above: Order Comment: Speci men Type: ARTERIAL BLOOD SPECIMENOrdering Facility: [facility] Address: [address] [place] [address] Performed By: #### A LLBG ####[facility]ORATORYCLIA [id number] [address] [place] CO2 adjusted to patient's actual temperature (Bld) [Partial pressure] 43 mmHg Normal 36-46 [facility] Comment on above: Order Comment: Speci men Type: ARTERIAL BLOOD SPECIMENOrdering Facility: [facility] Address: [address] [place] [address] Performed By: #### A LLBG ####[facility]ORATORYCLIA [id number] [address] [place] Glucose [Mass/Vol] 136 mg/dL High 60-105 [facility] Comment on above: Order Comment: Speci men Type: ARTERIAL BLOOD SPECIMENOrdering Facility: [facility] Address: [address] [place] [address] Performed By: #### A LLBG ####[facility] LABORATORYCLIA [id number] [address] [place] HCO3 (Bld) [Moles/Vol] 25 mmol/L Normal 22-26 [facility] Comment on above: Order Comment: Speci men Type: ARTERIAL BLOOD SPECIMENOrdering Facility: [facility] Address: [address] [place] [address] Performed By: #### A LLBG ####[facility]ORATORYCLIA [id number] [address] [place] Hematocrit (Bld) [Volume fraction] 32.2 % Low 39.0-51.0 [facility] Comment on above: Order Comment: Speci men Type: ARTERIAL BLOOD SPECIMENOrdering Facility: [facility] Address: [address] [place] [address] Performed By: #### A LLBG ####[facility] LABORATORYCLIA [id number] [address] [place] Hemoglobin (Bld) [Mass/Vol] 10.4 g/dL Low 13.0-17.0 [facility] Comment on above: Order Comment: Speci men Type: ARTERIAL BLOOD SPECIMENOrdering Facility: [facility] Address: [address] [place] [address] Performed By: #### A LLBG ####[facility] LABORATORYCLIA [id number] [address] [place] Lactate [Moles/Vol] 1.3 mmol/L Normal 0.5-2.2 [facility] Comment on above: Order Comment: Speci men Type: ARTERIAL BLOOD SPECIMENOrdering Facility: [facility] Address: [address] [place] [address] Performed By: #### A LLBG ####[facility] LABORATORYCLIA [id number] [address] [place] Methemoglobin (Bld) [Mass fraction] 1.0 % Normal 0.0-1.5 [facility] Comment on above: Order Comment: Speci men Type: ARTERIAL BLOOD SPECIMENOrdering Facility: [facility] Address: [address] [place] [address] Performed By: #### A LLBG ####[facility] LABORATORYCLIA [id number] [address] [place] O2 THERAPY [place] = Nasal Cannula Normal [facility] Comment on above: Order Comment: Speci men Type: ARTERIAL BLOOD SPECIMENOrdering Facility: [facility] Address: [address] [place] [address] Result Comment: 9 l Performed By: #### A LLBG ####[facility] LABORATORYCLIA [id number] [address] [place] Oxygen (Bld) [Partial pressure] 55 mm Hg Low 85-95 [facility] Comment on above: Order Comment: Speci men Type: ARTERIAL BLOOD SPECIMENOrdering Facility: [facility] Address: [address] [place] [address] Performed By: #### A LLBG ####[facility]ATORYCLIA [id number] [address] [place] Oxygen adjusted to patient's actual temperature (Bld) [Partial pressure] 58 mmHg Low 85-95 [facility] Comment on above: Order Comment: Speci men Type: ARTERIAL BLOOD SPECIMENOrdering Facility: [facility] Address: [address] [place] [address] Performed By: #### A LLBG ####[facility] LABORATORYCLIA [id number] [address] Oxyhemoglobin (BldA) [Mass fraction] 85 % Low 95-98 [facility] Comment on above: Order Comment: Speci men Type: ARTERIAL BLOOD SPECIMENOrdering Facility: [facility] Address: [address] [place] [address] Performed By: #### A LLBG ####[facility]ORATORYCLIA [id number] [place] [address] [place] pH (Bld) 7.39 [pH] Normal 7.35-7.45 [facility] Comment on above: Order Comment: Speci men Type: ARTERIAL BLOOD SPECIMENOrdering Facility: [facility] Address: [address] [place] [address] Performed By: #### A LLBG ####[facility] LABORATORYCLIA [id number] [address] [place] pH adjusted to patient's actual temperature (Bld) 7.38 Normal 7.35-7.45 [facility] Comment on above: Order Comment: Speci men Type: ARTERIAL BLOOD SPECIMENOrdering Facility: [facility] Address: [address] [place] [address] Performed By: #### A LLBG ####[facility]ORATORYCLIA [id number] [place] [address] [place] Potassium [Moles/Vol] 4.3 mmol/L Normal 3.5-5.0 [facility] Comment on above: Order Comment: Speci men Type: ARTERIAL BLOOD SPECIMENOrdering Facility: [facility] Address: [address] [place] [address] Performed By: #### A LLBG ####[facility]ORATORYCLIA [id number] [place] [address] [place] Sodium [Moles/Vol] 142 mmol/L Normal 136-144 [facility] Comment on above: Order Comment: Speci men Type: ARTERIAL BLOOD SPECIMENOrdering Facility: [facility] Address: [address] [place] [address] Performed By: #### A LLBG ####[facility] LABORATORYCLIA [id number] [address] STATES OF [facility] Bacteria Bld Culton 04-06-20 25 Bacteria identified Cx Nom (Bld) CULTURE, BLOOD: No growth 5 days Normal [facility] Comment on above: Performed By: #### 6 00-7 ####[facility] LABORATORYCLIA [id number] [address] Bacteria identified Cx Nom (Bld) CULTURE, BLOOD: No growth 5 days Normal [facility] Comment on above: Performed By: #### 6 00-7 ####[facility] LABORATORYCLIA [id number] [place] [address] [place] Bacteria Ur Culton 5 Bacteria identified Cx Nom (U) CULTURE, URINE: No growth (<1,000 CFU/ml) Normal [facility] Comment on above: Performed By: #### 2 4356-8, 630-4 ####[facility] LABORATORYCLIA [id number] [place] [address] [place] Basic metabolic 2000 panelon 04-06-2025 Anion gap [Moles/Vol] 13 mmol/L Normal 8-15 [facility] Comment on above: Order Comment: Speci men Type: BLOOD SPECIMENOrdering Facility: [facility] Address: [address] [place] [address] Performed By: #### 2 4321-2, 41707-0 ####[facility] LABORATORYCLIA [id number] [address] [place] Calcium [Mass/Vol] 8.9 mg/dL Normal 8.5-10.2 [facility] Comment on above: Order Comment: Speci men Type: BLOOD SPECIMENOrdering Facility: [facility] Address: [address] [place] [address] Performed By: #### 2 4321-2, 40410-4 ####[facility] LABORATORYCLIA [id number] [place] [address] [place] Chloride [Moles/Vol] 103 mmol/L Normal 98-107 [facility] Comment on above: Order Comment: Speci men Type: BLOOD SPECIMENOrdering Facility: [facility] Address: [address] [place] [address] Performed By: #### 2 4321-2, 56615-5 ####[facility] LABORATORYCLIA [id number] [place] [address] [place] CO2 [Moles/Vol] 22 mmol/L Normal 22-30 [facility] Comment on above: Order Comment: Speci men Type: BLOOD SPECIMENOrdering Facility: [facility] Address: [address] [place] [address] Performed By: #### 2 4321-2, 04497-6 ####[facility] LABORATORYCLIA [id number] [address] [place] Creatinine [Mass/Vol] 1.14 mg/dL Normal 0.73-1.22 [facility] Comment on above: Order Comment: Speci men Type: BLOOD SPECIMENOrdering Facility: [facility] Address: [address] [place] [address] Performed By: #### 2 4321-2, 02472-0 ####[facility] LABORATORYCLIA [id number] [address] OF [place] eGFRcr SerPlBld CKD-EPI 2020 68 mL/min/1.73m??? Normal >=60 [facility] Comment on above: Order Comment: Speci men Type: BLOOD SPECIMENOrdering Facility: [facility] Address: [address] [place] [address] Result Comment: Mary Kay mated Glomerular Filtration Rate (eGFR) is calculated using the 2020 CKD-EPI creatinine equation. This equation utilizes serum creatinine, sex, and age as parameters. The creatinine assay has traceable calibration to isotope dilution-mass spectrometry. Refer to KDIGO guidelines for clinical interpretation. In patients with unstable renal function, e.g. those with acute kidney injury, the eGFR may not accurately reflect actual GFR. Performed By: #### 2 4321-2, 30229-9 ####[facility] LABORATORYCLIA [id number] [place] [address] [place] Glucose [Mass/Vol] 143 mg/dL High 74-99 [facility] Comment on above: Order Comment: Jose Cruz johnson Type: BLOOD SPECIMENOrdering Facility: [facility] Address: [address] [place] [address] Result Comment: The [place] Diabetes Association (ADA) provides guidance for cutoff values for fasting glucose and random glucose. The ADA defines fasting as no caloric intake for at least 8 hours. Fasting plasma glucose results between 100 to 125 mg/dL indicate increased risk for diabetes (prediabetes).Fasting plasma glucose results greater than or equal to 126 mg/dL meet the criteria for diagnosis of diabetes. In the absence of unequivocal hyperglycemia, results should be confirmed by repeat testing. In a patient with classic symptoms of hyperglycemia or hyperglycemic crisis, random plasma glucose results greater than or equal to 200 mg/dL meet the criteria for diagnosis of diabetes.Reference: Standards of Medical Care in Diabetes 2016, [place] Diabetes Association. Diabetes Care. 2016.39(Suppl 1). Performed By: #### 2 4321-2, 26459-9 ####[facility] LABORATORYCLIA [id number] [place] [address] [place] Potassium [Moles/Vol] 4.6 mmol/L Normal 3.7-5.1 [facility] Comment on above: Order Comment: Jose Cruz johnson Type: BLOOD SPECIMENOrdering Facility: [facility] Address: [address] [place] [address] Performed By: #### 2 4321-2, 02368-0 ####[facility] LABORATORYCLIA [id number] [place] [id number] [place] Sodium [Moles/Vol] 138 mmol/L Normal 136-144 [facility] Comment on above: Order Comment: Jose Cruz johnson Type: BLOOD SPECIMENOrdering Facility: [facility] Address: [address] [place] [address] Performed By: #### 2 4321-2, 45832-4 ####[facility] LABORATORYCLIA [id number] [place] [id number] [place] Urea nitrogen [Mass/Vol] 17 mg/dL Normal 9-24 [facility] Comment on above: Order Comment: Speci men Type: BLOOD SPECIMENOrdering Facility: [facility] Address: [address] [place] [address] Performed By: #### 2 4321-2, 45945-5 ####[facility] LABORATORYCLIA [id number] [place] [address] [place] CASE MANAGEMon 04-06-2025 CASE MANAGEM Normal [facility] CBC W Auto Differential pane l (Bld)on 04-06-2025 Basophils (Bld) [#/Vol] 0.04 10*3/uL Normal <0.11 [facility] Comment on above: Order Comment: Speci men Type: BLOOD SPECIMENOrdering Facility: [facility] Address: [address] [place] [address] Performed By: #### 5 7021-8 ####[facility] LABORATORYCLIA [id number] [address] [place] Basophils/100 WBC (Bld) 0.3 % Normal [facility] Comment on above: Order Comment: Speci men Type: BLOOD SPECIMENOrdering Facility: [facility] Address: [address] [place] [address] Performed By: #### 5 7021-8 ####[facility] LABORATORYCLIA [id number] [address] [place] Differential cell count method Nom (Bld) Auto Normal [facility] Comment on above: Order Comment: Speci men Type: BLOOD SPECIMENOrdering Facility: [facility] Address: [address] [place] [address] Performed By: #### 5 7021-8 ####[facility] LABORATORYCLIA [id number] [place] [address] [place] Eosinophils (Bld) [#/Vol] 10*3/uL Normal <0.46 [facility] Comment on above: Order Comment: Speci men Type: BLOOD SPECIMENOrdering Facility: [facility] Address: [address] [place] [address] Performed By: #### 5 7021-8 ####[facility] LABORATORYCLIA [id number] [address] Eosinophils/100 WBC (Bld) 0.0 % Normal [facility] Comment on above: Order Comment: Speci men Type: BLOOD SPECIMENOrdering Facility: [facility] Address: [address] [place] [address] Performed By: #### 5 7021-8 ####[facility] LABORATORYCLIA [id number] [address] Erythrocyte distribution width (RBC) [Ratio] 14.7 % Normal 11.5-15.0 [facility] Comment on above: Order Comment: Speci men Type: BLOOD SPECIMENOrdering Facility: [facility] Address: [address] [place] [address] Performed By: #### 5 7021-8 ####[facility] LABORATORYCLIA [id number] [address] Hematocrit (Bld) [Volume fraction] 32.9 % Low 39.0-51.0 [facility] Comment on above: Order Comment: Speci men Type: BLOOD SPECIMENOrdering Facility: [facility] Address: [address] [place] [address] Performed By: #### 5 7021-8 ####[facility] LABORATORYCLIA [id number] [address] Hemoglobin (Bld) [Mass/Vol] 10.1 g/dL Low 13.0-17.0 [facility] Comment on above: Order Comment: Speci men Type: BLOOD SPECIMENOrdering Facility: [facility] Address: [address] [place] [address] Performed By: #### 5 7021-8 ####[facility] LABORATORYCLIA [id number] [address] [place] Immature granulocytes (Bld) [#/Vol] 0.07 10*3/uL Normal <0.10 [facility] Comment on above: Order Comment: Speci men Type: BLOOD SPECIMENOrdering Facility: [facility] Address: [address] [place] [address] Performed By: #### 5 7021-8 ####[facility] LABORATORYCLIA [id number] [address] Immature granulocytes/100 WBC (Bld) 0.5 % Normal [facility] Comment on above: Order Comment: Speci men Type: BLOOD SPECIMENOrdering Facility: [facility] Address: [address] [place] [address] Performed By: #### 5 7021-8 ####[facility] LABORATORYCLIA [id number] [address] Lymphocytes (Bld) [#/Vol] 0.84 10*3/uL Low 1.00-4.00 [facility] Comment on above: Order Comment: Speci men Type: BLOOD SPECIMENOrdering Facility: [facility] Address: [address] [place] [address] Performed By: #### 5 7021-8 ####[facility] LABORATORYCLIA [id number] [address] Lymphocytes/100 WBC (Bld) 6.0 % Normal [facility] Comment on above: Order Comment: Speci men Type: BLOOD SPECIMENOrdering Facility: [facility] Address: [address] [place] [address] Performed By: #### 5 7021-8 ####[facility] LABORATORYCLIA [id number] [address] STATES [facility] MCH (RBC) [Entitic mass] 26.7 pg Normal 26.0-34.0 [facility] Comment on above: Order Comment: Speci men Type: BLOOD SPECIMENOrdering Facility: [facility] Address: [address] [place] [address] Performed By: #### 5 7021-8 ####[facility] LABORATORYCLIA [id number] [address] [place] MCHC (RBC) [Mass/Vol] 30.7 g/dL Normal 30.5-36.0 [facility] Comment on above: Order Comment: Speci men Type: BLOOD SPECIMENOrdering Facility: [facility] Address: [address] [place] [address] Performed By: #### 5 7021-8 ####[facility] LABORATORYCLIA [id number] [address] [place] MCV (RBC) [Entitic vol] 87.0 fL Normal 80.0-100.0 [facility] Comment on above: Order Comment: Speci men Type: BLOOD SPECIMENOrdering Facility: [facility] Address: [address] [place] [address] Performed By: #### 5 7021-8 ####[facility] LABORATORYCLIA [id number] [address] [place] Monocytes (Bld) [#/Vol] 0.91 10*3/uL High <0.87 [facility] Comment on above: Order Comment: Speci men Type: BLOOD SPECIMENOrdering Facility: [facility] Address: [address] [place] [address] Performed By: #### 5 7021-8 ####[facility] LABORATORYCLIA [id number] [address] STATES [facility] Monocytes/100 WBC (Bld) 6.5 % Normal [facility] Comment on above: Order Comment: Speci men Type: BLOOD SPECIMENOrdering Facility: [facility] Address: [address] [place] [address] Performed By: #### 5 7021-8 ####[facility] LABORATORYCLIA [id number] [address] [place] Neutrophils (Bld) [#/Vol] 12.14 10*3/uL High 1.45-7.50 [facility] Comment on above: Order Comment: Speci men Type: BLOOD SPECIMENOrdering Facility: [facility] Address: [address] [place] [address] Performed By: #### 5 7021-8 ####[facility] LABORATORYCLIA [id number] [address] [place] Neutrophils/100 WBC (Bld) 86.7 % Normal [facility] Comment on above: Order Comment: Speci men Type: BLOOD SPECIMENOrdering Facility: [facility] Address: [address] [place] [address] Performed By: #### 5 7021-8 ####[facility] LABORATORYCLIA [id number] [address] [place] Nucleated RBC (Bld) [#/Vol] 10*3/uL Normal <0.01 [facility] Comment on above: Order Comment: Speci men Type: BLOOD SPECIMENOrdering Facility: [facility] Address: [address] [place] [address] Performed By: #### 5 7021-8 ####[facility] LABORATORYCLIA [id number] [address] [place] Nucleated RBC/100 WBC (Bld) [Ratio] 0.0 /100 WBC Normal [facility] Comment on above: Order Comment: Speci men Type: BLOOD SPECIMENOrdering Facility: [facility] Address: [address] [place] [address] Performed By: #### 5 7021-8 ####[facility] LABORATORYCLIA [id number] [place] [address] [place] Platelet mean volume (Bld) [Entitic vol] 10.3 fL Normal 9.0-12.7 [facility] Comment on above: Order Comment: Speci men Type: BLOOD SPECIMENOrdering Facility: [facility] Address: [address] [place] [address] Performed By: #### 5 7021-8 ####[facility] LABORATORYCLIA [id number] [place] [address] [place] Platelets (Bld) [#/Vol] 255 10*3/uL Normal 150-400 [facility] Comment on above: Order Comment: Speci men Type: BLOOD SPECIMENOrdering Facility: [facility] Address: [address] [place] [address] Performed By: #### 5 7021-8 ####[facility] LABORATORYCLIA [id number] [address] STATES OF [facility] RBC (Bld) [#/Vol] 3.78 10*6/uL Low 4.20-6.00 [facility] Comment on above: Order Comment: Speci men Type: BLOOD SPECIMENOrdering Facility: [facility] Address: [address] [place] [address] Performed By: #### 5 7021-8 ####[facility] LABORATORYCLIA [id number] [address] [place] WBC (Bld) [#/Vol] 14.00 10*3/uL High 3.70-11.00 [facility] Comment on above: Order Comment: Speci men Type: BLOOD SPECIMENOrdering Facility: [facility] Address: [address] [place] [address] Performed By: #### 5 7021-8 ####[facility] LABORATORYCLIA [id number] [address] OF [facility] CBC panel Auto (Bld)on 04-06 Erythrocyte distribution width (RBC) [Ratio] 14.6 % Normal 11.5-15.0 [facility] Comment on above: Order Comment: Speci men Type: BLOOD SPECIMENOrdering Facility: [facility] Address: [address] [place] [address] Performed By: #### 5 8410-2 ####[facility] LABORATORYCLIA [id number] [address] Hematocrit (Bld) [Volume fraction] 30.6 % Low 39.0-51.0 [facility] Comment on above: Order Comment: Speci men Type: BLOOD SPECIMENOrdering Facility: [facility] Address: [address] [place] [address] Performed By: #### 5 8410-2 ####[facility] LABORATORYCLIA [id number] [address] STATES OF [facility] Hemoglobin (Bld) [Mass/Vol] 9.5 g/dL Low 13.0-17.0 [facility] Comment on above: Order Comment: Speci men Type: BLOOD SPECIMENOrdering Facility: [facility] Address: [address] [place] [address] Performed By: #### 5 8410-2 ####[facility] LABORATORYCLIA [id number] [address] MCH (RBC) [Entitic mass] 26.7 pg Normal 26.0-34.0 [facility] Comment on above: Order Comment: Speci men Type: BLOOD SPECIMENOrdering Facility: [facility] Address: [address] [place] [address] Performed By: #### 5 8410-2 ####[facility] LABORATORYCLIA [id number] [address] MCHC (RBC) [Mass/Vol] 31.0 g/dL Normal 30.5-36.0 [facility] Comment on above: Order Comment: Speci men Type: BLOOD SPECIMENOrdering Facility: [facility] Address: [address] [place] [address] Performed By: #### 5 8410-2 ####[facility] LABORATORYCLIA [id number] [address] MCV (RBC) [Entitic vol] 86.0 fL Normal 80.0-100.0 [facility] Comment on above: Order Comment: Speci men Type: BLOOD SPECIMENOrdering Facility: [facility] Address: [address] [place] [address] Performed By: #### 5 8410-2 ####[facility] LABORATORYCLIA [id number] [address] Nucleated RBC (Bld) [#/Vol] 10*3/uL Normal <0.01 [facility] Comment on above: Order Comment: Speci men Type: BLOOD SPECIMENOrdering Facility: [facility] Address: [address] [place] [address] Performed By: #### 5 8410-2 ####[facility] LABORATORYCLIA [id number] [address] Platelet mean volume (Bld) [Entitic vol] 10.1 fL Normal 9.0-12.7 [facility] Comment on above: Order Comment: Speci men Type: BLOOD SPECIMENOrdering Facility: [facility] Address: [facility] [place] [address] Performed By: #### 5 8410-2 ####[facility] LABORATORYCLIA [id number] [address] [place] Platelets (Bld) [#/Vol] 229 10*3/uL Normal 150-400 [facility] Comment on above: Order Comment: Speci men Type: BLOOD SPECIMENOrdering Facility: [facility] Address: [address] [place] [address] Performed By: #### 5 8410-2 ####[facility] LABORATORYCLIA [id number] [place] [address] [place] RBC (Bld) [#/Vol] 3.56 10*6/uL Low 4.20-6.00 [facility] Comment on above: Order Comment: Speci men Type: BLOOD SPECIMENOrdering Facility: [facility] Address: [address] [place] [address] Performed By: #### 5 8410-2 ####[facility] LABORATORYCLIA [id number] [address] [place] WBC (Bld) [#/Vol] 13.31 10*3/uL High 3.70-11.00 [facility] Comment on above: Order Comment: Speci men Type: BLOOD SPECIMENOrdering Facility: [facility] Address: [address] [place] [address] Performed By: #### 5 8410-2 ####[facility] LABORATORYCLIA [id number] [address] CONSULT PROGon 04-06-2025 CONSULT PROG Normal [facility] CONSULT PROG Normal [facility] CONSULT PROG Normal [facility] CONSULT PROG Normal [facility] CTA CHEST (NON GATED) W IVCO N PEon 04-06-2025 CTA CHEST (NON GATED) W IVCON PE Normal [facility] Comprehensive metabolic 2000 panelon 04-06-2025 Albumin [Mass/Vol] 4.1 g/dL Normal 3.9-4.9 [facility] Comment on above: Order Comment: Speci men Type: BLOOD SPECIMENOrdering Facility: [facility] Address: [address] [place] [address] Performed By: #### 3 3959-8, 5195-3, 29632-0, 25177-8 ####[facility] LABORATORYCLIA [id number] [address] [place] ALP [Catalytic activity/Vol] 74 U/L Normal 38-113 [facility] Comment on above: Order Comment: Speci men Type: BLOOD SPECIMENOrdering Facility: [facility] Address: [address] [place] [address] Performed By: #### 3 3959-8, 5195-3, 07336-3, 52382-0 ####[facility] LABORATORYCLIA [id number] [place] [address] [place] ALT With P-5'-P [Catalytic activity/Vol] 9 U/L Low 10-54 [facility] Comment on above: Order Comment: Speci men Type: BLOOD SPECIMENOrdering Facility: [facility] Address: [address] [place] [address] Performed By: #### 3 3959-8, 5195-3, 51173-5, 83979-4 ####[facility] LABORATORYCLIA [id number] [address] [place] Anion gap [Moles/Vol] 12 mmol/L Normal 8-15 [facility] Comment on above: Order Comment: Speci men Type: BLOOD SPECIMENOrdering Facility: [facility] Address: [address] [place] [address] Performed By: #### 3 3959-8, 5195-3, 10783-3, 78928-6 ####[facility] LABORATORYCLIA [id number] [place] [address] [place] AST With P-5'-P [Catalytic activity/Vol] 27 U/L Normal 14-40 [facility] Comment on above: Order Comment: Speci men Type: BLOOD SPECIMENOrdering Facility: [facility] Address: [address] [place] [address] Performed By: #### 3 3959-8, 5195-3, 81780-7, 85519-1 ####[facility] LABORATORYCLIA [id number] [place] [address] [place] Bilirubin [Mass/Vol] 0.3 mg/dL Normal 0.2-1.3 [facility] Comment on above: Order Comment: Speci men Type: BLOOD SPECIMENOrdering Facility: [facility] Address: [address] [place] [address] Performed By: #### 3 3959-8, 5195-3, 24412-4, 98040-0 ####[facility] LABORATORYCLIA [id number] [place] [address] [place] Calcium [Mass/Vol] 8.7 mg/dL Normal 8.5-10.2 [facility] Comment on above: Order Comment: Speci men Type: BLOOD SPECIMENOrdering Facility: [facility] Address: [address] [place] [address] Performed By: #### 3 3959-8, 5195-3, 22342-7, 66219-9 ####[facility] LABORATORYCLIA [id number] [place] [id number] [place] Chloride [Moles/Vol] 103 mmol/L Normal 98-107 [facility] Comment on above: Order Comment: Speci men Type: BLOOD SPECIMENOrdering Facility: [facility] Address: [address] [place] [address] Performed By: #### 3 3959-8, 5195-3, 07436-6, 49458-7 ####[facility] [id number] [place] [address] [place] CO2 [Moles/Vol] 23 mmol/L Normal 22-30 [facility] Comment on above: Order Comment: Speci men Type: BLOOD SPECIMENOrdering Facility: [facility] Address: [address] [place] [address] Performed By: #### 3 3959-8, 5195-3, 55089-8, 27391-3 ####[facility]ITAL[facility] [id number] [place] [id number] [place] Creatinine [Mass/Vol] 1.11 mg/dL Normal 0.73-1.22 [facility] Comment on above: Order Comment: Speci men Type: BLOOD SPECIMENOrdering Facility: [facility] Address: [address] [place] [address] Performed By: #### 3 3959-8, 5195-3, 21627-6, 37532-0 ####[facility] COUNTYIA [id number] [address] [place] eGFRcr SerPlBld CKD-EPI 2020 70 mL/min/1.73m??? Normal >=60 [facility] Comment on above: Order Comment: Speci men Type: BLOOD SPECIMENOrdering Facility: [facility] Address: [address] [place] [address] Result Comment: Mary Kay mated Glomerular Filtration Rate (eGFR) is calculated using the 2020 CKD-EPI creatinine equation. This equation utilizes serum creatinine, sex, and age as parameters. The creatinine assay has traceable calibration to isotope dilution-mass spectrometry. Refer to KDIGO guidelines for clinical interpretation. In patients with unstable renal function, e.g. those with acute kidney injury, the eGFR may not accurately reflect actual GFR. Performed By: #### 3 3959-8, 5195-3, 87430-0, 81372-4 ####[facility] LABORATORYCLIA [id number] [place] [address] [place] Glucose [Mass/Vol] 129 mg/dL High 74-99 [facility] Comment on above: Order Comment: Jose Cruz johnson Type: BLOOD SPECIMENOrdering Facility: [facility] Address: [address] [place] [address] Result Comment: The [place] [employer] (ADA) provides guidance for cutoff values for fasting glucose and random glucose. The ADA defines fasting as no caloric intake for at least 8 hours. Fasting plasma glucose results between 100 to 125 mg/dL indicate increased risk for diabetes (prediabetes).Fasting plasma glucose results greater than or equal to 126 mg/dL meet the criteria for diagnosis of diabetes. In the absence of unequivocal hyperglycemia, results should be confirmed by repeat testing. In a patient with classic symptoms of hyperglycemia or hyperglycemic crisis, random plasma glucose results greater than or equal to 200 mg/dL meet the criteria for diagnosis of diabetes.Reference: Standards of Medical Care in Diabetes 2016, [place] [employer]. Diabetes Care. 2016.39(Suppl 1). Performed By: #### 3 3959-8, 5195-3, 03180-1, 56093-1 ####[facility] LABORATORYCLIA [id number] [place] [address] [place] Potassium [Moles/Vol] 4.6 mmol/L Normal 3.7-5.1 [facility] Comment on above: Order Comment: Jose Cruz johnson Type: BLOOD SPECIMENOrdering Facility: [facility] Address: [address] [place] [address] Performed By: #### 3 3959-8, 5195-3, 44967-3, 35814-0 ####[facility] LABORATORYCLIA [id number] [place] [address] [place] Protein [Mass/Vol] 6.5 g/dL Normal 6.3-8.0 [facility] Comment on above: Order Comment: Jose Cruz johnson Type: BLOOD SPECIMENOrdering Facility: [facility] Address: [address] [place] [address] Performed By: #### 3 3959-8, 5195-3, 34758-8, 50117-1 ####[facility] LABORATORYCLIA [id number] [place] [id number] [place] Sodium [Moles/Vol] 138 mmol/L Normal 136-144 [facility] Comment on above: Order Comment: Speci men Type: BLOOD SPECIMENOrdering Facility: [facility] Address: [address] [place] [address] Performed By: #### 3 3959-8, 5195-3, 94666-5, 27183-7 ####[facility] LABORATORYCLIA [id number] [address] [place] Urea nitrogen [Mass/Vol] 15 mg/dL Normal 9-24 [facility] Comment on above: Order Comment: Speci men Type: BLOOD SPECIMENOrdering Facility: [facility] Address: [address] [place] [address] Performed By: #### 3 3959-8, 5195-3, 76023-6, 14606-7 ####[facility] LABORATORYCLIA [id number] [address] [place] ECHO WITH AGITATED SALINE CO NTRASTon 04-06-2025 ECHO WITH AGITATED SALINE CONTRAST Normal [facility] HBV surface Ag Ser Qlon 03-20 HBV surface Ag Ql (S) Non-Reactive Normal Nonreactive [facility] Comment on above: Order Comment: Speci men Type: BLOOD SPECIMENOrdering Facility: [facility] Address: [address] [place] [address] Performed By: #### 3 3959-8, 5195-3, 03875-4, 26693-2 ####[facility] LABORATORYCLIA [id number] [place] [address] [place] Legionella Ag Ur Qlon 2024 Legionella sp Ag Ql (U) Negative Normal Negative [facility] Comment on above: Order Comment: Speci men Type: URINE SPECIMENOrdering Facility: [facility] Address: [address] [place] [address] Result Comment: Pres umptive negative for L. pneumophila serogroup 1 antigen in urine, suggesting no recent or current infection. Infection due to Legionella cannot be ruled out since other serogroups and species may cause disease, antigen may not be present in urine in early infection, and the level of antigen present in the urine may be below the detection limit of the test. Performed By: #### 3 2781-7 ####[facility]IA [id number] [address] NT-proBNP SerPl-mCncon 04-06 Natriuretic peptide.B prohormone N-Terminal [Mass/Vol] 1495 pg/mL High <125 [facility] Comment on above: Order Comment: Speci men Type: BLOOD SPECIMENOrdering Facility: [facility] Address: [address] [place] [address] Performed By: #### 3 3959-8, 5195-3, 89643-4, 22324-6 ####[facility]ITALCLIA [id number] [address] Procalcitonin SerPl-mCncon 0 04-06-2025 Procalcitonin [Mass/Vol] 0.13 ng/mL High <0.09 [facility] Comment on above: Order Comment: Speci men Type: BLOOD SPECIMENOrdering Facility: [facility] Address: [address] [place] [address] Result Comment: For a guided interpretation of test results, please visit the Change in Procalcitonin Calculator, [email or web address]. Performed By: #### 3 3959-8, 5195-3, 21138-4, 50954-1 ####[facility] LABORATORYCLIA [id number] [address] Procalcitonin [Mass/Vol] 0.13 ng/mL High <0.09 [facility] Comment on above: Order Comment: Speci men Type: BLOOD SPECIMENOrdering Facility: [facility] Address: [address] [place] [address] Result Comment: For a guided interpretation of test results, please visit the Change in Procalcitonin Calculator, [email or web address]. Performed By: #### 2 4321-2, 43260-4 ####[facility] LABORATORYCLIA [id number] [address] [place] STAPHYLOCOCCUS AUREUS AND MR SA SCREEN, PCR, NASALon 04-06-2025 S. aureus and MRSA panel JUAN F+probe (Nose) Methicillin-SUSCEPTIBLE Staphylococcus aureus Detected Abnormal Not Detected [facility] Comment on above: Order Comment: Speci men Type: SWABOrdering Facility: [facility] Address: [address] [place] [address] Performed By: #### S APCR ####[facility] LABORATORYCLIA [id number] [address] OF [place] STREPTOCOCCUS PNEUMONIAE ANT IGEN URINEon 04-06-2025 STREPTOCOCCUS PNEUMONIAE ANTIGEN URINE Normal [facility] Comment on above: Performed By: #### S PNAG ####[facility] LABORATORYCLIA [id number] [address] [place] Urinalysis complete panel (U )on 04-06-2025 Bilirubin Ql (U) Negative Normal Negative [facility] Comment on above: Order Comment: Speci men Type: URINE SPECIMENOrdering Facility: [facility] Address: [address] [place] [address] Performed By: #### 2 4356-8, 630-4 ####[facility] LABORATORYCLIA [id number] [address] [place] Clarity (Unsp spec) Turbid Abnormal Clear [facility] Comment on above: Order Comment: Speci men Type: URINE SPECIMENOrdering Facility: [facility] Address: [address] [place] [address] Performed By: #### 2 4356-8, 630-4 ####[facility] LABORATORYCLIA [id number] [address] STATES [facility] Color (U) Colorless Normal yellow [facility] Comment on above: Order Comment: Speci men Type: URINE SPECIMENOrdering Facility: [facility] Address: [address] [place] [address] Performed By: #### 2 4356-8, 630-4 ####[facility] LABORATORYCLIA [id number] [address] Glucose Test strip (U) [Mass/Vol] Negative Normal Trace, Negative [facility] Comment on above: Order Comment: Speci men Type: URINE SPECIMENOrdering Facility: [facility] Address: [address] [place] [address] Performed By: #### 2 4356-8, 630-4 ####[facility] LABORATORYCLIA [id number] [address] STATES OF [facility] Hemoglobin Ql (U) 3+ Abnormal Negative, Trace [facility] Comment on above: Order Comment: Speci men Type: URINE SPECIMENOrdering Facility: [facility] Address: [address] [place] [address] Performed By: #### 2 4356-8, 630-4 ####[facility] LABORATORYCLIA [id number] [address] STATES [facility] Ketones Ql (U) Negative Normal Negative, Trace [facility] Comment on above: Order Comment: Speci men Type: URINE SPECIMENOrdering Facility: [facility] Address: [address] [place] [address] Performed By: #### 2 4356-8, 630-4 ####[facility] LABORATORYCLIA [id number] [address] Leukocyte esterase Test strip Ql (U) 25 Mayra/uL Normal Negative, 25 Mayra/uL [facility] Comment on above: Order Comment: Speci men Type: URINE SPECIMENOrdering Facility: [facility] Address: [address] [place] [address] Performed By: #### 2 4356-8, 630-4 ####[facility] LABORATORYCLIA [id number] [address] Nitrite Ql (U) Negative Normal Negative [facility] Comment on above: Order Comment: Speci men Type: URINE SPECIMENOrdering Facility: [facility] Address: [address] [place] [address] Performed By: #### 2 4356-8, 630-4 ####[facility] LABORATORYCLIA [id number] [place] [address] [place] pH (U) 6.5 [pH] Normal 5.0-8.0 [facility] Comment on above: Order Comment: Speci men Type: URINE SPECIMENOrdering Facility: [facility] Address: [address] [place] [address] Performed By: #### 2 4356-8, 630-4 ####[facility] LABORATORYCLIA [id number] [place] [id number] [place] Protein (U) [Mass/Vol] Trace Normal Trace, Negative [facility] Comment on above: Order Comment: Speci men Type: URINE SPECIMENOrdering Facility: [facility] Address: [address] [place] [address] Performed By: #### 2 4356-8, 630-4 ####[facility]ITALCLIA [id number] [address] STATES [facility] RBC LM.HPF (Urine sed) [#/Area] /[HPF] Abnormal 0-3 /HPF [facility] Comment on above: Order Comment: Speci men Type: URINE SPECIMENOrdering Facility: [facility] Address: [address] [place] [address] Performed By: #### 2 4356-8, 630-4 ####[facility] LABORATORYCLIA [id number] [address] [place] Specific gravity (U) [Rel density] 1.026 Normal 1.005-1.030 [facility] Comment on above: Order Comment: Speci men Type: URINE SPECIMENOrdering Facility: [facility] Address: [address] [place] [address] Performed By: #### 2 4356-8, 630-4 ####[facility] LABORATORYCLIA [id number] [address] Urobilinogen Ql (U) Normal Normal Normal [facility] Comment on above: Order Comment: Speci men Type: URINE SPECIMENOrdering Facility: [facility] Address: [address] [place] [address] Performed By: #### 2 4356-8, 630-4 ####[facility] LABORATORYCLIA [id number] [address] [place] WBC LM.HPF (Urine sed) [#/Area] /[HPF] Abnormal 0-5 /HPF [facility] Comment on above: Order Comment: Speci men Type: URINE SPECIMENOrdering Facility: [facility] Address: [address] [place] [address] Performed By: #### 2 4356-8, 630-4 ####[facility] LABORATORYCLIA [id number] [address] [place] XR CHEST 1V FRONTALon 2024 XR CHEST 1V FRONTAL Normal [facility] XR CHEST 1V FRONTAL Normal [facility] ALLIED HEALTHon 04-05-2025 ALLIED HEALTH Normal [facility] ANES POSTPROC EVALon 025 ANES POSTPROC EVAL Normal [facility] ANES PRE-OPon 04-05-2025 ANES PRE-OP Normal [facility] BRIEF OP NOTon 04-05-2025 BRIEF OP NOT Normal [facility] CNPNon 04-05-2025 CNPN Normal [facility] CONSULTon 04-05-2025 CONSULT Normal [facility] ECG COMPLETEon 04-05-2025 ECG COMPLETE Normal [facility] Gas and Carbon monoxide pane l (BldV)on 04-05-2025 BASE DEFICIT, VENOUS >-1 Normal -2-0 [facility] Comment on above: Order Comment: Speci men Type: VENOUS BLOOD SPECIMENOrdering Facility: [facility] Address: [address] [place] [address] Performed By: #### 2 4344-4 ####[facility] LABORATORYCLIA [id number] [address] [place] Body temperature 100.58 [degF] Normal [facility] Comment on above: Order Comment: Speci men Type: VENOUS BLOOD SPECIMENOrdering Facility: [facility] Address: [address] [place] [address] Performed By: #### 2 4344-4 ####[facility] LABORATORYCLIA [id number] [address] Calcium.ionized (BldV) [Mass/Vol] 1.11 mmol/L Normal 1.08-1.30 [facility] Comment on above: Order Comment: Speci men Type: VENOUS BLOOD SPECIMENOrdering Facility: [facility] Address: [address] [place] [address] Performed By: #### 2 4344-4 ####[facility] LABORATORYCLIA [id number] [address] Calcium.ionized adjusted to pH 7.4 (BldA) [Moles/Vol] 1.11 mmol/L Normal 1.08-1.30 [facility] Comment on above: Order Comment: Speci men Type: VENOUS BLOOD SPECIMENOrdering Facility: [facility] Address: [address] [place] [address] Performed By: #### 2 4344-4 ####[facility] LABORATORYCLIA [id number] [address] [place] Carboxyhemoglobin (BldV) [Mass fraction] 1.6 % Normal 0.0-2.0 [facility] Comment on above: Order Comment: Speci men Type: VENOUS BLOOD SPECIMENOrdering Facility: [facility] Address: [address] [place] [address] Result Comment: Carb oxyhemoglobin Reference Range for Smokers: 2.0-8.0% Performed By: #### 2 4344-4 ####[facility] LABORATORYCLIA [id number] [address] [place] Chloride [Moles/Vol] 107 mmol/L High 97-105 [facility] Comment on above: Order Comment: Speci men Type: VENOUS BLOOD SPECIMENOrdering Facility: [facility] Address: [address] [place] [address] Performed By: #### 2 4344-4 ####[facility] LABORATORYCLIA [id number] [address] CO2 (BldV) [Partial pressure] 39 mm[Hg] Low 42-55 [facility] Comment on above: Order Comment: Speci men Type: VENOUS BLOOD SPECIMENOrdering Facility: [facility] Address: [address] [place] [address] Performed By: #### 2 4344-4 ####[facility] LABORATORYCLIA [id number] [address] CO2 adjusted to patient's actual temperature (BldV) [Partial pressure] 42 mmHg Normal 42-55 [facility] Comment on above: Order Comment: Speci men Type: VENOUS BLOOD SPECIMENOrdering Facility: [facility] Address: [address] [place] [address] Performed By: #### 2 4344-4 ####[facility] LABORATORYCLIA [id number] [address] [place] Glucose [Mass/Vol] 160 mg/dL High 60-105 [facility] Comment on above: Order Comment: Speci men Type: VENOUS BLOOD SPECIMENOrdering Facility: [facility] Address: [address] [place] [address] Performed By: #### 2 4344-4 ####[facility] LABORATORYCLIA [id number] [address] [place] HCO3 (Bld) [Moles/Vol] 24 mmol/L Normal 24-28 [facility] Comment on above: Order Comment: Speci men Type: VENOUS BLOOD SPECIMENOrdering Facility: [facility] Address: [address] [place] [address] Performed By: #### 2 4344-4 ####[facility] LABORATORYCLIA [id number] [address] [place] Hematocrit (Bld) [Volume fraction] 31.2 % Low 39.0-51.0 [facility] Comment on above: Order Comment: Speci men Type: VENOUS BLOOD SPECIMENOrdering Facility: [facility] Address: [address] [place] [address] Performed By: #### 2 4344-4 ####[facility] LABORATORYCLIA [id number] [address] [place] Hemoglobin (Bld) [Mass/Vol] 10.1 g/dL Low 13.0-17.0 [facility] Comment on above: Order Comment: Speci men Type: VENOUS BLOOD SPECIMENOrdering Facility: [facility] Address: [address] [place] [address] Performed By: #### 2 4344-4 ####[facility] LABORATORYCLIA [id number] [address] [place] Lactate [Moles/Vol] 1.5 mmol/L Normal 0.5-2.2 [facility] Comment on above: Order Comment: Speci men Type: VENOUS BLOOD SPECIMENOrdering Facility: [facility] Address: [address] [place] [address] Performed By: #### 2 4344-4 ####[facility] LABORATORYCLIA [id number] [address] [place] Methemoglobin (Bld) [Mass fraction] 1.0 % Normal 0.0-1.5 [facility] Comment on above: Order Comment: Speci men Type: VENOUS BLOOD SPECIMENOrdering Facility: [facility] Address: [address] [place] [address] Performed By: #### 2 4344-4 ####[facility] LABORATORYCLIA [id number] [address] [place] O2 THERAPY NC = Nasal Cannula Normal [facility] Comment on above: Order Comment: Speci men Type: VENOUS BLOOD SPECIMENOrdering Facility: [facility] Address: [address] [place] [address] Result Comment: 6L Performed By: #### 2 4344-4 ####[facility] LABORATORYCLIA [id number] [address] [place] Oxygen (BldV) [Partial pressure] 178 mm[Hg] High 35-45 [facility] Comment on above: Order Comment: Speci men Type: VENOUS BLOOD SPECIMENOrdering Facility: [facility] Address: [address] [place] [address] Performed By: #### 2 4344-4 ####[facility]ORATORYCLIA [id number] [address] [place] Oxygen adjusted to patient's actual temperature (BldV) [Partial pressure] 184 mmHg High 35-45 [facility] Comment on above: Order Comment: Speci men Type: VENOUS BLOOD SPECIMENOrdering Facility: [facility] Address: [address] [place] [address] Performed By: #### 2 4344-4 ####[facility] LABORATORYCLIA [id number] [address] Oxygen saturation in Venous blood 99 % High 60-85 [facility] Comment on above: Order Comment: Speci men Type: VENOUS BLOOD SPECIMENOrdering Facility: [facility] Address: [address] [place] [address] Performed By: #### 2 4344-4 ####[facility] LABORATORYCLIA [id number] [address] [place] Oxyhemoglobin (BldV) [Mass fraction] 96 % High 60-85 [facility] Comment on above: Order Comment: Speci men Type: VENOUS BLOOD SPECIMENOrdering Facility: [facility] Address: [address] [place] [address] Performed By: #### 2 4344-4 ####[facility] LABORATORYCLIA [id number] [address] [place] pH (BldV) 7.40 [pH] Normal 7.32-7.42 [facility] Comment on above: Order Comment: Speci men Type: VENOUS BLOOD SPECIMENOrdering Facility: [facility] Address: [address] [place] [address] Performed By: #### 2 4344-4 ####[facility]ORATORYCLIA [id number] [address] [place] pH adjusted to patient's actual temperature (BldV) 7.38 Normal 7.32-7.42 [facility] Comment on above: Order Comment: Speci men Type: VENOUS BLOOD SPECIMENOrdering Facility: [facility] Address: [address] [place] [address] Performed By: #### 2 4344-4 ####[facility] LABORATORYCLIA [id number] [address] STATES OF [facility] Potassium [Moles/Vol] 4.4 mmol/L Normal 3.5-5.0 [facility] Comment on above: Order Comment: Speci men Type: VENOUS BLOOD SPECIMENOrdering Facility: [facility] Address: [address] [place] [address] Performed By: #### 2 4344-4 ####[facility] LABORATORYCLIA [id number] [address] Sodium [Moles/Vol] 138 mmol/L Normal 136-144 [facility] Comment on above: Order Comment: Speci men Type: VENOUS BLOOD SPECIMENOrdering Facility: [facility] Address: [address] [place] [address] Performed By: #### 2 4344-4 ####[facility] LABORATORYCLIA [id number] [address] OF [facility] HISTORY PHYSICALon HISTORY PHYSICAL Normal [facility] HISTORY PHYSICAL Normal [facility] NURSING PROGon 04-05-2025 NURSING PROG Normal [facility] NURSING PROG Normal [facility] OPERATIVE NOon 04-05-2025 OPERATIVE NO Normal [facility] XR CHEST 1V FRONTALon 2024 XR CHEST 1V FRONTAL Normal [facility] CNPNon 04-04-2025 CNPN Normal [facility] CNPNon 04-02-2025 CNPN Normal [facility] NURSING PROGon 03-30-2025 NURSING PROG Normal [facility] CBC panel Auto (Bld)on 03-29 Erythrocyte distribution width (RBC) [Ratio] 14.0 % Normal 11.5-15.0 [facility] Comment on above: Order Comment: Speci men Type: BLOOD SPECIMENOrdering Facility: [facility] Address: [address] [place] [address] Performed By: #### 5 8410-2 ####[facility] LABORATORYCLIA [id number] [address] Hematocrit (Bld) [Volume fraction] 35.9 % Low 39.0-51.0 [facility] Comment on above: Order Comment: Speci men Type: BLOOD SPECIMENOrdering Facility: [facility] Address: [address] [place] [address] Performed By: #### 5 8410-2 ####[facility] LABORATORYCLIA [id number] [address] STATES OF [facility] Hemoglobin (Bld) [Mass/Vol] 11.9 g/dL Low 13.0-17.0 [facility] Comment on above: Order Comment: Speci men Type: BLOOD SPECIMENOrdering Facility: [facility] Address: [address] [place] [address] Performed By: #### 5 8410-2 ####[facility] LABORATORYCLIA [id number] [address] STATES OF [facility] MCH (RBC) [Entitic mass] 28.7 pg Normal 26.0-34.0 [facility] Comment on above: Order Comment: Speci men Type: BLOOD SPECIMENOrdering Facility: [facility] Address: [address] [place] [address] Performed By: #### 5 8410-2 ####[facility] LABORATORYCLIA [id number] [address] [place] MCHC (RBC) [Mass/Vol] 33.1 g/dL Normal 30.5-36.0 [facility] Comment on above: Order Comment: Speci men Type: BLOOD SPECIMENOrdering Facility: [facility] Address: [address] [place] [address] Performed By: #### 5 8410-2 ####[facility] LABORATORYCLIA [id number] [address] MCV (RBC) [Entitic vol] 86.5 fL Normal 80.0-100.0 [facility] Comment on above: Order Comment: Speci men Type: BLOOD SPECIMENOrdering Facility: [facility] Address: [address] [place] [address] Performed By: #### 5 8410-2 ####[facility] LABORATORYCLIA [id number] [address] [place] Nucleated RBC (Bld) [#/Vol] 10*3/uL Normal <0.01 [facility] Comment on above: Order Comment: Speci men Type: BLOOD SPECIMENOrdering Facility: [facility] Address: [address] [place] [address] Performed By: #### 5 8410-2 ####[facility] LABORATORYCLIA [id number] [address] [place] Platelet mean volume (Bld) [Entitic vol] 10.5 fL Normal 9.0-12.7 [facility] Comment on above: Order Comment: Speci men Type: BLOOD SPECIMENOrdering Facility: [facility] Address: [address] [place] [address] Performed By: #### 5 8410-2 ####[facility] LABORATORYCLIA [id number] [address] [place] Platelets (Bld) [#/Vol] 333 10*3/uL Normal 150-400 [facility] Comment on above: Order Comment: Speci men Type: BLOOD SPECIMENOrdering Facility: [facility] Address: [address] [place] [address] Performed By: #### 5 8410-2 ####[facility] LABORATORYCLIA [id number] [place] [address] [place] RBC (Bld) [#/Vol] 4.15 10*6/uL Low 4.20-6.00 [facility] Comment on above: Order Comment: Speci men Type: BLOOD SPECIMENOrdering Facility: [facility] Address: [address] [place] [address] Performed By: #### 5 8410-2 ####[facility] LABORATORYCLIA [id number] [address] [place] WBC (Bld) [#/Vol] 7.99 10*3/uL Normal 3.70-11.00 [facility] Comment on above: Order Comment: Speci men Type: BLOOD SPECIMENOrdering Facility: [facility] Address: [address] [place] [address] Performed By: #### 5 8410-2 ####[facility] LABORATORYCLIA [id number] [address] Comprehensive metabolic 2000 panelon 03-29-2025 Albumin [Mass/Vol] 4.1 g/dL Normal 3.9-4.9 [facility] Comment on above: Order Comment: Speci men Type: BLOOD SPECIMENOrdering Facility: [facility] Address: [address] [place] [address] Performed By: #### 2 4323-8, 27612-0 ####[facility] LABORATORYCLIA [id number] [address] [place] ALP [Catalytic activity/Vol] 72 U/L Normal 38-113 [facility] Comment on above: Order Comment: Speci men Type: BLOOD SPECIMENOrdering Facility: [facility] Address: [address] [place] [address] Performed By: #### 2 4323-8, 08268-5 ####[facility] LABORATORYCLIA [id number] [address] [place] ALT With P-5'-P [Catalytic activity/Vol] 11 U/L Normal 10-54 [facility] Comment on above: Order Comment: Speci men Type: BLOOD SPECIMENOrdering Facility: [facility] Address: [address] [place] [address] Performed By: #### 2 4323-8, 94567-1 ####[facility] LABORATORYCLIA [id number] [address] [place] Anion gap [Moles/Vol] 14 mmol/L Normal 8-15 [facility] Comment on above: Order Comment: Speci men Type: BLOOD SPECIMENOrdering Facility: [facility] Address: [address] [place] [address] Performed By: #### 2 4323-8, 94322-7 ####[facility] LABORATORYCLIA [id number] [place] [address] [place] AST With P-5'-P [Catalytic activity/Vol] 16 U/L Normal 14-40 [facility] Comment on above: Order Comment: Speci men Type: BLOOD SPECIMENOrdering Facility: [facility] Address: [address] [place] [address] Performed By: #### 2 4323-8, 92515-4 ####[facility] LABORATORYCLIA [id number] [place] [address] [place] Bilirubin [Mass/Vol] 0.3 mg/dL Normal 0.2-1.3 [facility] Comment on above: Order Comment: Speci men Type: BLOOD SPECIMENOrdering Facility: [facility] Address: [address] [place] [address] Performed By: #### 2 4323-8, 67447-4 ####[facility] LABORATORYCLIA [id number] [place] [address] [place] Calcium [Mass/Vol] 9.8 mg/dL Normal 8.5-10.2 [facility] Comment on above: Order Comment: Speci men Type: BLOOD SPECIMENOrdering Facility: [facility] Address: [address] [place] [address] Performed By: #### 2 4323-8, 52653-3 ####[facility] LABORATORYCLIA [id number] [place] [address] [place] Chloride [Moles/Vol] 99 mmol/L Normal 98-107 [facility] Comment on above: Order Comment: Speci men Type: BLOOD SPECIMENOrdering Facility: [facility] Address: [address] [place] [address] Performed By: #### 2 4323-8, 12860-3 ####[facility] LABORATORYCLIA [id number] [address] STATES OF [facility] CO2 [Moles/Vol] 24 mmol/L Normal 22-30 [facility] Comment on above: Order Comment: Speci men Type: BLOOD SPECIMENOrdering Facility: [facility] Address: [address] [place] [address] Performed By: #### 2 4323-8, 35191-5 ####[facility] LABORATORYCLIA [id number] [address] [place] Creatinine [Mass/Vol] 1.19 mg/dL Normal 0.73-1.22 [facility] Comment on above: Order Comment: Speci men Type: BLOOD SPECIMENOrdering Facility: [facility] Address: [address] [place] [address] Performed By: #### 2 4323-8, 69091-7 ####[facility] LABORATORYCLIA [id number] [address] Creatinine and Glomerular filtration rate.predicted panel (S/P/Bld) 64 mL/min/1.73m??? Normal >=60 [facility] Comment on above: Order Comment: Speci men Type: BLOOD SPECIMENOrdering Facility: [facility] Address: [address] [place] [address] Result Comment: Mary Kay mated Glomerular Filtration Rate (eGFR) is calculated using the 2020 CKD-EPI creatinine equation. This equation utilizes serum creatinine, sex, and age as parameters. The creatinine assay has traceable calibration to isotope dilution-mass spectrometry. Refer to KDIGO guidelines for clinical interpretation. In patients with unstable renal function, e.g. those with acute kidney injury, the eGFR may not accurately reflect actual GFR. Performed By: #### 2 4323-8, 88535-4 ####[facility] LABORATORYCLIA [id number] [address] [place] Glucose [Mass/Vol] 211 mg/dL High 74-99 [facility] Comment on above: Order Comment: Speci men Type: BLOOD SPECIMENOrdering Facility: [facility] Address: [address] [place] [address] Result Comment: The [place] Diabetes Association (ADA) provides guidance for cutoff values for fasting glucose and random glucose. The ADA defines fasting as no caloric intake for at least 8 hours. Fasting plasma glucose results between 100 to 125 mg/dL indicate increased risk for diabetes (prediabetes).Fasting plasma glucose results greater than or equal to 126 mg/dL meet the criteria for diagnosis of diabetes. In the absence of unequivocal hyperglycemia, results should be confirmed by repeat testing. In a patient with classic symptoms of hyperglycemia or hyperglycemic crisis, random plasma glucose results greater than or equal to 200 mg/dL meet the criteria for diagnosis of diabetes.Reference: Standards of Medical Care in Diabetes 2016, [place] Diabetes Association. Diabetes Care. 2016.39(Suppl 1). Performed By: #### 2 4323-8, 04455-5 ####[facility] LABORATORYCLIA [id number] [place] [address] [place] Potassium [Moles/Vol] 4.8 mmol/L Normal 3.7-5.1 [facility] Comment on above: Order Comment: Jose Cruz johnson Type: BLOOD SPECIMENOrdering Facility: [facility] Address: [address] [place] [address] Performed By: #### 2 4323-8, 52658-7 ####[facility] LABORATORYCLIA [id number] [place] [address] [place] Protein [Mass/Vol] 7.5 g/dL Normal 6.3-8.0 [facility] Comment on above: Order Comment: Jose Cruz johnson Type: BLOOD SPECIMENOrdering Facility: [facility] Address: [address] [place] [address] Performed By: #### 2 4323-8, 44043-2 ####[facility] LABORATORYCLIA [id number] [place] [address] [place] Sodium [Moles/Vol] 137 mmol/L Normal 136-144 [facility] Comment on above: Order Comment: Jose Cruz johnson Type: BLOOD SPECIMENOrdering Facility: [facility] Address: [address] [place] [address] Performed By: #### 2 4323-8, 17279-6 ####[facility] LABORATORYCLIA [id number] [place] [address] [place] Urea nitrogen [Mass/Vol] 25 mg/dL High 9-24 [facility] Comment on above: Order Comment: Jose Cruz johnson Type: BLOOD SPECIMENOrdering Facility: [facility] Address: [address] [place] [address] Performed By: #### 2 4323-8, 93325-8 ####[facility] LABORATORYCLIA [id number] [place] [id number] [place] HISTORY PHYSICALon 5 HISTORY PHYSICAL Normal [facility] HbA1c (Bld)on 03-29-2025 Average glucose Estimated from glycated hemoglobin (Bld) [Mass/Vol] 166 mg/dL Normal [facility] Comment on above: Order Comment: Jose Cruz johnson Type: BLOOD SPECIMENOrdering Facility: [facility] Address: [address] [place] [address] Result Comment: eAG: (Estimated average glucose) is a calculated value from HgbA1c and is solar manufacturer's representative of the average blood glucose level in the last 2-3 month period. Performed By: #### 5 5454-3 ####[facility] LABCLIA [id number] [place] [address] [place] HbA1c (Bld) [Mass fraction] 7.4 % High 4.3-5.6 [facility] Comment on above: Order Comment: Jose Cruz johnson Type: BLOOD SPECIMENOrdering Facility: [facility] Address: [address] [place] [address] Result Comment: Amer [place] Diabetes Association guidelines indicate that patients with HgbA1c in the range 5.7-6.4% are at increased risk for development of diabetes, and intervention by lifestyle modification may be beneficial. HgbA1c greater or equal to 6.5% is considered diagnostic of diabetes. Performed By: #### 5 5454-3 ####[facility] LABCLIA [id number] [address] [address] [place] Lipid 1996 panelon 5 Cholesterol [Mass/Vol] 113 mg/dL Normal <200 [facility] Comment on above: Order Comment: Dahianai men Type: BLOOD SPECIMENOrdering Facility: [facility] Address: [address] [place] [address] Result Comment: <200 mg/dL, Desirable 200-239 mg/dL, Borderline high>239 mg/dL, High Performed By: #### 2 4323-8, 56482-0 ####[facility] LABORATORYCLIA [id number] [place] [address] [facility] [place] Cholesterol in HDL [Mass/Vol] 38 mg/dL Low >39 [facility] Comment on above: Order Comment: Speci men Type: BLOOD SPECIMENOrdering Facility: [facility] Address: [address] [place] [address] Result Comment: 40-5 9 mg/dL, Acceptable>59 mg/dL, High: Negative risk factor for coronary heart disease<40 mg/dL, Low: Positive risk factor for coronary heart disease Performed By: #### 2 4323-8, 14572-0 ####[facility] LABORATORYCLIA [id number] [address] OF [facility] Cholesterol in LDL [Mass/Vol] 38 mg/dL Normal <100 [facility] Comment on above: Order Comment: Jose Cruz alex Type: BLOOD SPECIMENOrdering Facility: [facility] Address: [address] [place] [address] Result Comment: <100 mg/dL, Optimal 100-129 mg/dL, Near optimal/above optimal 130-159 mg/dL, Borderline high 160-189 mg/dL, High>189 mg/dL, Very highSecondary prevention optimal LDL Cholesterol levels are recommended to be <70 mg/dLLDL cholesterol is calculated using the Hackett-NIH equation. Performed By: #### 2 4323-8, 38177-2 ####[facility] LABORATORYCLIA [id number] [address] [place] Cholesterol in LDL/Cholesterol in HDL [Mass ratio] 1.00 {ratio} Normal <2.54 [facility] Comment on above: Order Comment: Speci men Type: BLOOD SPECIMENOrdering Facility: [facility] Address: [address] [place] [address] Result Comment: Chandni clark:1. National Cholesterol Education Program ATP III Guideline At-A-Glance Quick Desk Reference: National Heart, Lung, and Blood Star. National Institutes of Health. 2001: NIH Publication No. 01-3305.2. An International Atherosclerosis Society position paper: global recommendations for the management of dyslipidemia: executive summary, Atherosclerosis. 2014: 232(2):410-413. Performed By: #### 2 4323-8, 11737-4 ####[facility] LABORATORYCLIA [id number] [address] [place] Cholesterol in VLDL [Mass/Vol] 32 mg/dL High <30 [facility] Comment on above: Order Comment: Speci men Type: BLOOD SPECIMENOrdering Facility: [facility] Address: [address] [place] [address] Performed By: #### 2 4323-8, 46273-8 ####[facility] LABORATORYCLIA [id number] [address] [place] Cholesterol non HDL [Mass/Vol] 75 mg/dL Normal <130 [facility] Comment on above: Order Comment: Speci men Type: BLOOD SPECIMENOrdering Facility: [facility] Address: [address] [place] [address] Result Comment: <130 mg/dL, Optimal 130-159 mg/dL, Near optimal/above optimal 160-189 mg/dL, Borderline high 190-219 mg/dL, High>219 mg/dL, Very highSecondary prevention optimal non HDL Cholesterol levels are recommended to be <100 mg/dL Performed By: #### 2 4323-8, 20045-2 ####[facility] LABORATORYCLIA [id number] [address] [place] Cholesterol.total/C holesterol in HDL [Mass ratio] 2.97 {ratio} Normal <5.10 [facility] Comment on above: Order Comment: Speci men Type: BLOOD SPECIMENOrdering Facility: [facility] Address: [address] [place] [address] Performed By: #### 2 4323-8, 34458-6 ####[facility] LABORATORYCLIA [id number] [place] [address] [place] FASTING TIME 12 hrs Normal [facility] Comment on above: Order Comment: Speci men Type: BLOOD SPECIMENOrdering Facility: [facility] Address: [address] [place] [address] Performed By: #### 2 4323-8, 16099-7 ####[facility] LABORATORYCLIA [id number] [address] [place] Triglyceride [Mass/Vol] 239 mg/dL High <150 [facility] Comment on above: Order Comment: Speci men Type: BLOOD SPECIMENOrdering Facility: [facility] Address: [address] [place] [address] Result Comment: <150 mg/dL, Normal 150-199 mg/dL, Borderline high 200-499 mg/dL, High>499 mg/dL, Very high Performed By: #### 2 4323-8, 33372-2 ####[facility] LABORATORYCLIA [id number] [place] [address] [place] CNPNon 03-21-2025 CNPN Normal [facility] CNCOon 03-20-2025 CNCO Letter Text Normal [facility] CNOVon 03-20-2025 CNOV Normal [facility] CNPNon 03-19-2025 CNPN Normal [facility] CNPNon 03-15-2025 CNPN Normal [facility] CNOVon 03-05-2025 CNOV Normal [facility] HEMOGLOBIN A1C (POC)on 03-05 HbA1c (Bld) [Mass fraction] 7.8 % Abnormal 4.3 - 5.6 % [facility] Comment on above: Location:[facility] Office, [address] [place] [address], [facility] Point of care (POC) Hemoglobin A1c (HGBA1C) testing is intended to assess glucose control and provide a management tool for patients known to have diabetes and their healthcare providers. Target HGBA1C levels may depend on specific clinical circumstances. POC HGBA1C is not intended for use as a diagnostic or screening test; laboratory-based testing should be used for diagnostic purposes. The following information is supplemental and may not be applicable to specific diabetes management situations: The POC device recreation engineer provides a normal range of 4.2% to 6.5% for the HGBA1C POC test. However, the [place] Diabetes Association guidelines indicate that patients with HGBA1C in the range of 5.7% to 6.4% are at increased risk for development of diabetes and that intervention by lifestyle modification may be beneficial. A HGBA1C level greater than or equal to 6.5% is considered diagnostic of diabetes, pending confirmatory testing. Use of HGBA1C testing to evaluate glucose control may not be appropriate for patients with hemoglobin variants or other conditions (e.g. anemia) that alter red blood cell lifespan. Interpretation and review of laboratory results Abnormal [facility] CNOVon 02-28-2025 CNOV Normal [facility] Basic metabolic 2000 panelon 02-26-2025 Anion gap [Moles/Vol] 11 mmol/L Normal 8-15 [facility] Comment on above: Order Comment: Speci men Type: BLOOD SPECIMENOrdering Facility: [facility] Address: [address] [place] [address] Performed By: #### 2 4321-2 ####[facility] LABORATORYCLIA [id number] [place] [address] [place] Calcium [Mass/Vol] 8.2 mg/dL Low 8.5-10.2 [facility] Comment on above: Order Comment: Speci men Type: BLOOD SPECIMENOrdering Facility: [facility] Address: [address] [place] [address] Performed By: #### 2 4321-2 ####[facility] LABORATORYCLIA [id number] [place] [address] [place] Chloride [Moles/Vol] 101 mmol/L Normal 98-107 [facility] Comment on above: Order Comment: Speci men Type: BLOOD SPECIMENOrdering Facility: [facility] Address: [address] [place] [address] Performed By: #### 2 4321-2 ####[facility] LABORATORYCLIA [id number] [address] CO2 [Moles/Vol] 26 mmol/L Normal 22-30 [facility] Comment on above: Order Comment: Jose Cruz johnson Type: BLOOD SPECIMENOrdering Facility: [facility] Address: [address] [place] [address] Performed By: #### 2 4321-2 ####[facility] LABORATORYCLIA [id number] [place] [id number] [place] Creatinine [Mass/Vol] 1.26 mg/dL High 0.73-1.22 [facility] Comment on above: Order Comment: Speci men Type: BLOOD SPECIMENOrdering Facility: [facility] Address: [address] [place] [address] Performed By: #### 2 4321-2 ####[facility] LABORATORYCLIA [id number] [address] Creatinine and Glomerular filtration rate.predicted panel (S/P/Bld) 60 mL/min/1.73m??? Normal >=60 [facility] Comment on above: Order Comment: Speci men Type: BLOOD SPECIMENOrdering Facility: [facility] Address: [address] [place] [address] Result Comment: Mary Kay mated Glomerular Filtration Rate (eGFR) is calculated using the 2020 CKD-EPI creatinine equation. This equation utilizes serum creatinine, sex, and age as parameters. The creatinine assay has traceable calibration to isotope dilution-mass spectrometry. Refer to KDIGO guidelines for clinical interpretation. In patients with unstable renal function, e.g. those with acute kidney injury, the eGFR may not accurately reflect actual GFR. Performed By: #### 2 4321-2 ####[facility] LABORATORYCLIA [id number] [address] [place] Glucose [Mass/Vol] 100 mg/dL High 74-99 [facility] Comment on above: Order Comment: Jose Cruz johnson Type: BLOOD SPECIMENOrdering Facility: [facility] Address: [address] [place] [address] Result Comment: The [place] Diabetes Association (ADA) provides guidance for cutoff values for fasting glucose and random glucose. The ADA defines fasting as no caloric intake for at least 8 hours. Fasting plasma glucose results between 100 to 125 mg/dL indicate increased risk for diabetes (prediabetes).Fasting plasma glucose results greater than or equal to 126 mg/dL meet the criteria for diagnosis of diabetes. In the absence of unequivocal hyperglycemia, results should be confirmed by repeat testing. In a patient with classic symptoms of hyperglycemia or hyperglycemic crisis, random plasma glucose results greater than or equal to 200 mg/dL meet the criteria for diagnosis of diabetes.Reference: Standards of Medical Care in Diabetes 2016, [place] Diabetes Association. Diabetes Care. 2016.39(Suppl 1). Performed By: #### 2 4321-2 ####[facility] LABORATORYCLIA [id number] [place] [address] [place] Potassium [Moles/Vol] 4.3 mmol/L Normal 3.7-5.1 [facility] Comment on above: Order Comment: Speci men Type: BLOOD SPECIMENOrdering Facility: [facility] Address: [address] [place] [address] Performed By: #### 2 4321-2 ####[facility] LABORATORYCLIA [id number] [place] [address] [place] Sodium [Moles/Vol] 138 mmol/L Normal 136-144 [facility] Comment on above: Order Comment: Speci men Type: BLOOD SPECIMENOrdering Facility: [facility] Address: [address] [place] [address] Performed By: #### 2 4321-2 ####[facility] LABORATORYCLIA [id number] [place] [address] [place] Urea nitrogen [Mass/Vol] 16 mg/dL Normal 9-24 [facility] Comment on above: Order Comment: Speci men Type: BLOOD SPECIMENOrdering Facility: [facility] Address: [address] [place] [address] Performed By: #### 2 4321-2 ####[facility] LABORATORYCLIA [id number] [place] [address] [place] CASE MGT INIT ASSESon 2024 CASE MGT INIT ASSES Normal [facility] CBC panel Auto (Bld)on 02-26 Erythrocyte distribution width (RBC) [Ratio] 13.3 % Normal 11.5-15.0 [facility] Comment on above: Order Comment: Speci men Type: BLOOD SPECIMENOrdering Facility: [facility] Address: [address] [place] [address] Performed By: #### 5 8410-2 ####[facility] LABORATORYCLIA [id number] [address] STATES OF [facility] Hematocrit (Bld) [Volume fraction] 28.8 % Low 39.0-51.0 [facility] Comment on above: Order Comment: Speci men Type: BLOOD SPECIMENOrdering Facility: [facility] Address: [address] [place] [address] Performed By: #### 5 8410-2 ####[facility] LABORATORYCLIA [id number] [address] STATES OF [facility] Hemoglobin (Bld) [Mass/Vol] 8.9 g/dL Low 13.0-17.0 [facility] Comment on above: Order Comment: Speci men Type: BLOOD SPECIMENOrdering Facility: [facility] Address: [address] [place] [address] Performed By: #### 5 8410-2 ####[facility] LABORATORYCLIA [id number] [address] [place] MCH (RBC) [Entitic mass] 26.7 pg Normal 26.0-34.0 [facility] Comment on above: Order Comment: Speci men Type: BLOOD SPECIMENOrdering Facility: [facility] Address: [address] [place] [address] Performed By: #### 5 8410-2 ####[facility] LABORATORYCLIA [id number] [address] [place] MCHC (RBC) [Mass/Vol] 30.9 g/dL Normal 30.5-36.0 [facility] Comment on above: Order Comment: Speci men Type: BLOOD SPECIMENOrdering Facility: [facility] Address: [address] [place] [address] Performed By: #### 5 8410-2 ####[facility] LABORATORYCLIA [id number] [address] MCV (RBC) [Entitic vol] 86.5 fL Normal 80.0-100.0 [facility] Comment on above: Order Comment: Speci men Type: BLOOD SPECIMENOrdering Facility: [facility] Address: [address] [place] [address] Performed By: #### 5 8410-2 ####[facility] LABORATORYCLIA [id number] [address] [place] Nucleated RBC (Bld) [#/Vol] 10*3/uL Normal <0.01 [facility] Comment on above: Order Comment: Speci men Type: BLOOD SPECIMENOrdering Facility: [facility] Address: [address] [place] [address] Performed By: #### 5 8410-2 ####[facility] LABORATORYCLIA [id number] [address] STATES OF [facility] Platelet mean volume (Bld) [Entitic vol] 10.1 fL Normal 9.0-12.7 [facility] Comment on above: Order Comment: Speci men Type: BLOOD SPECIMENOrdering Facility: [facility] Address: [address] [place] [address] Performed By: #### 5 8410-2 ####[facility] LABORATORYCLIA [id number] [address] STATES [facility] Platelets (Bld) [#/Vol] 215 10*3/uL Normal 150-400 [facility] Comment on above: Order Comment: Speci men Type: BLOOD SPECIMENOrdering Facility: [facility] Address: [address] [place] [address] Performed By: #### 5 8410-2 ####[facility] LABORATORYCLIA [id number] [address] [place] RBC (Bld) [#/Vol] 3.33 10*6/uL Low 4.20-6.00 [facility] Comment on above: Order Comment: Speci men Type: BLOOD SPECIMENOrdering Facility: [facility] Address: [address] [place] [address] Performed By: #### 5 8410-2 ####[facility] LABORATORYCLIA [id number] [place] [address] [place] WBC (Bld) [#/Vol] 7.76 10*3/uL Normal 3.70-11.00 [facility] Comment on above: Order Comment: Speci men Type: BLOOD SPECIMENOrdering Facility: [facility] Address: [address] [place] [address] Performed By: #### 5 8410-2 ####[facility] LABORATORYCLIA [id number] [place] [address] [place] CNDSon 02-26-2025 CNDS Normal [facility] Basic metabolic 2000 panelon 02-25-2025 Anion gap [Moles/Vol] 7 mmol/L Low 8-15 [facility] Comment on above: Order Comment: Speci men Type: BLOOD SPECIMENOrdering Facility: [facility] Address: [address] [place] [address] Performed By: #### 2 4321-2 ####[facility] LABORATORYCLIA [id number] [place] [address] [place] Calcium [Mass/Vol] 8.1 mg/dL Low 8.5-10.2 [facility] Comment on above: Order Comment: Speci men Type: BLOOD SPECIMENOrdering Facility: [facility] Address: [address] [place] [address] Performed By: #### 2 4321-2 ####[facility] LABORATORYCLIA [id number] [place] [address] [place] Chloride [Moles/Vol] 103 mmol/L Normal 98-107 [facility] Comment on above: Order Comment: Speci men Type: BLOOD SPECIMENOrdering Facility: [facility] Address: [address] [place] [address] Performed By: #### 2 4321-2 ####[facility] LABORATORYCLIA [id number] [address] [place] CO2 [Moles/Vol] 28 mmol/L Normal 22-30 [facility] Comment on above: Order Comment: Speci men Type: BLOOD SPECIMENOrdering Facility: [facility] Address: [address] [place] [address] Performed By: #### 2 4321-2 ####[facility] LABORATORYCLIA [id number] [address] STATES OF [facility] Creatinine [Mass/Vol] 1.26 mg/dL High 0.73-1.22 [facility] Comment on above: Order Comment: Speci men Type: BLOOD SPECIMENOrdering Facility: [facility] Address: [address] [place] [address] Performed By: #### 2 4321-2 ####[facility]ITAL[facility] [id number] [address] Creatinine and Glomerular filtration rate.predicted panel (S/P/Bld) 60 mL/min/1.73m??? Normal >=60 [facility] Comment on above: Order Comment: Speci men Type: BLOOD SPECIMENOrdering Facility: [facility] Address: [address] [place] [address] Result Comment: Mary Kay mated Glomerular Filtration Rate (eGFR) is calculated using the 2020 CKD-EPI creatinine equation. This equation utilizes serum creatinine, sex, and age as parameters. The creatinine assay has traceable calibration to isotope dilution-mass spectrometry. Refer to KDIGO guidelines for clinical interpretation. In patients with unstable renal function, e.g. those with acute kidney injury, the eGFR may not accurately reflect actual GFR. Performed By: #### 2 4321-2 ####[facility] LABORATORYCLIA [id number] [address] STATES OF [facility] Glucose [Mass/Vol] 123 mg/dL High 74-99 [facility] Comment on above: Order Comment: Speci men Type: BLOOD SPECIMENOrdering Facility: [facility] Address: [address] [place] [address] Result Comment: The [place] Diabetes [employer] (ADA) provides guidance for cutoff values for fasting glucose and random glucose. The ADA defines fasting as no caloric intake for at least 8 hours. Fasting plasma glucose results between 100 to 125 mg/dL indicate increased risk for diabetes (prediabetes).Fasting plasma glucose results greater than or equal to 126 mg/dL meet the criteria for diagnosis of diabetes. In the absence of unequivocal hyperglycemia, results should be confirmed by repeat testing. In a patient with classic symptoms of hyperglycemia or hyperglycemic crisis, random plasma glucose results greater than or equal to 200 mg/dL meet the criteria for diagnosis of diabetes.Reference: Standards of Medical Care in Diabetes 2016, [place] [employer]. Diabetes Care. 2016.39(Suppl 1). Performed By: #### 2 4321-2 ####[facility] LABORATORYCLIA [id number] [place] [address] [place] Potassium [Moles/Vol] 4.3 mmol/L Normal 3.7-5.1 [facility] Comment on above: Order Comment: Jose Cruz johnson Type: BLOOD SPECIMENOrdering Facility: [facility] Address: [address] [place] [address] Performed By: #### 2 4321-2 ####[facility] LABORATORYCLIA [id number] [address] [place] Sodium [Moles/Vol] 138 mmol/L Normal 136-144 [facility] Comment on above: Order Comment: Jose Cruz johnson Type: BLOOD SPECIMENOrdering Facility: [facility] Address: [address] [place] [address] Performed By: #### 2 4321-2 ####[facility] LABORATORYCLIA [id number] [place] [address] [place] Urea nitrogen [Mass/Vol] 17 mg/dL Normal 9-24 [facility] Comment on above: Order Comment: Jose Cruz johnson Type: BLOOD SPECIMENOrdering Facility: [facility] Address: [address] [place] [address] Performed By: #### 2 4321-2 ####[facility] LABORATORYCLIA [id number] [address] [place] CBC panel Auto (Bld)on 02-25 Erythrocyte distribution width (RBC) [Ratio] 13.3 % Normal 11.5-15.0 [facility] Comment on above: Order Comment: Speci men Type: BLOOD SPECIMENOrdering Facility: [facility] Address: [address] [place] [address] Performed By: #### 5 8410-2 ####[facility] LABORATORYCLIA [id number] [address] OF [facility] Hematocrit (Bld) [Volume fraction] 28.3 % Low 39.0-51.0 [facility] Comment on above: Order Comment: Speci men Type: BLOOD SPECIMENOrdering Facility: [facility] Address: [address] [place] [address] Performed By: #### 5 8410-2 ####[facility] LABORATORYCLIA [id number] [address] STATES OF [facility] Hemoglobin (Bld) [Mass/Vol] 8.9 g/dL Low 13.0-17.0 [facility] Comment on above: Order Comment: Speci men Type: BLOOD SPECIMENOrdering Facility: [facility] Address: [address] [place] [address] Performed By: #### 5 8410-2 ####[facility] LABORATORYCLIA [id number] [address] [place] MCH (RBC) [Entitic mass] 26.6 pg Normal 26.0-34.0 [facility] Comment on above: Order Comment: Speci men Type: BLOOD SPECIMENOrdering Facility: [facility] Address: [address] [place] [address] Performed By: #### 5 8410-2 ####[facility] LABORATORYCLIA [id number] [address] [place] MCHC (RBC) [Mass/Vol] 31.4 g/dL Normal 30.5-36.0 [facility] Comment on above: Order Comment: Speci men Type: BLOOD SPECIMENOrdering Facility: [facility] Address: [address] [place] [address] Performed By: #### 5 8410-2 ####[facility] LABORATORYCLIA [id number] [address] STATES [facility] MCV (RBC) [Entitic vol] 84.7 fL Normal 80.0-100.0 [facility] Comment on above: Order Comment: Speci men Type: BLOOD SPECIMENOrdering Facility: [facility] Address: [address] [place] [address] Performed By: #### 5 8410-2 ####[facility] LABORATORYCLIA [id number] [address] [place] Nucleated RBC (Bld) [#/Vol] 10*3/uL Normal <0.01 [facility] Comment on above: Order Comment: Speci men Type: BLOOD SPECIMENOrdering Facility: [facility] Address: [address] [place] [address] Performed By: #### 5 8410-2 ####[facility] LABORATORYCLIA [id number] [address] [place] Platelet mean volume (Bld) [Entitic vol] 10.1 fL Normal 9.0-12.7 [facility] Comment on above: Order Comment: Speci men Type: BLOOD SPECIMENOrdering Facility: [facility] Address: [address] [place] [address] Performed By: #### 5 8410-2 ####[facility] LABORATORYCLIA [id number] [address] [place] Platelets (Bld) [#/Vol] 216 10*3/uL Normal 150-400 [facility] Comment on above: Order Comment: Speci men Type: BLOOD SPECIMENOrdering Facility: [facility] Address: [address] [place] [address] Performed By: #### 5 8410-2 ####[facility] LABORATORYCLIA [id number] [address] [place] RBC (Bld) [#/Vol] 3.34 10*6/uL Low 4.20-6.00 [facility] Comment on above: Order Comment: Speci men Type: BLOOD SPECIMENOrdering Facility: [facility] Address: [address] [place] [address] Performed By: #### 5 8410-2 ####[facility] LABORATORYCLIA [id number] [address] STATES OF [facility] WBC (Bld) [#/Vol] 10.51 10*3/uL Normal 3.70-11.00 [facility] Comment on above: Order Comment: Speci men Type: BLOOD SPECIMENOrdering Facility: [facility] Address: [address] [place] [address] Performed By: #### 5 8410-2 ####[facility] LABORATORYCLIA [id number] [address] [place] HIGH SENSITIVITY TROPONIN To n 02-25-2025 Troponin T.cardiac High sensitivity method [Mass/Vol] 91 ng/L High <12 [facility] Comment on above: Order Comment: Speci men Type: BLOOD SPECIMENOrdering Facility: [facility] Address: [address] [place] [address] Performed By: #### H STNT ####[facility] LABORATORYCLIA [id number] [address] Troponin T.cardiac High sensitivity method [Mass/Vol] 114 ng/L High <12 [facility] Comment on above: Order Comment: Speci men Type: BLOOD SPECIMENOrdering Facility: [facility] Address: [address] [place] [address] Performed By: #### H STNT ####[facility] LABORATORYCLIA [id number] [address] [place] aPTT PPPon 02-25-2025 aPTT Coag (PPP) [Time] 66.3 s High 23.0-32.4 [facility] Comment on above: Order Comment: Speci men Type: BLOOD SPECIMENOrdering Facility: [facility] Address: [address] [place] [address] Performed By: #### 1 4979-9 ####[facility] LABORATORYCLIA [id number] [place] [address] [place] Basic metabolic 2000 panelon 02-24-2025 Anion gap [Moles/Vol] 10 mmol/L Normal 8-15 [facility] Comment on above: Order Comment: Speci men Type: BLOOD SPECIMENOrdering Facility: [facility] Address: [address] [place] [address] Performed By: #### 2 4321-2, ####[facility] LABORATORYCLIA [id number] [place] [address] [place] Calcium [Mass/Vol] 8.8 mg/dL Normal 8.5-10.2 [facility] Comment on above: Order Comment: Speci men Type: BLOOD SPECIMENOrdering Facility: [facility] Address: [address] [place] [address] Performed By: #### 2 4321-2, ####[facility] LABORATORYCLIA [id number] [place] [address] [place] Chloride [Moles/Vol] 102 mmol/L Normal 98-107 [facility] Comment on above: Order Comment: Speci men Type: BLOOD SPECIMENOrdering Facility: [facility] Address: [address] [place] [address] Performed By: #### 2 4321-2, ####[facility] LABORATORYCLIA [id number] [place] [id number] [place] CO2 [Moles/Vol] 26 mmol/L Normal 22-30 [facility] Comment on above: Order Comment: Speci men Type: BLOOD SPECIMENOrdering Facility: [facility] Address: [address] [place] [address] Performed By: #### 2 4321-2, ####[facility] LABORATORYCLIA [id number] [place] [address] [place] Creatinine [Mass/Vol] 1.06 mg/dL Normal 0.73-1.22 [facility] Comment on above: Order Comment: Speci men Type: BLOOD SPECIMENOrdering Facility: [facility] Address: [address] [place] [address] Performed By: #### 2 4321-2, 79866-9 ####[facility] COUNTYIA [id number] [place] [id number] [facility] [place] Creatinine and Glomerular filtration rate.predicted panel (S/P/Bld) 74 mL/min/1.73m??? Normal >=60 [facility] Comment on above: Order Comment: Jose Cruz alex Type: BLOOD SPECIMENOrdering Facility: [facility] Address: [address] [place] [address] Result Comment: Mary Kay mated Glomerular Filtration Rate (eGFR) is calculated using the 2020 CKD-EPI creatinine equation. This equation utilizes serum creatinine, sex, and age as parameters. The creatinine assay has traceable calibration to isotope dilution-mass spectrometry. Refer to KDIGO guidelines for clinical interpretation. In patients with unstable renal function, e.g. those with acute kidney injury, the eGFR may not accurately reflect actual GFR. Performed By: #### 2 4321-2, 44735-9 ####[facility] COUNTYIA [id number] [place] [id number] [place] Glucose [Mass/Vol] 191 mg/dL High 74-99 [facility] Comment on above: Order Comment: Jose Cruz johnson Type: BLOOD SPECIMENOrdering Facility: [facility] Address: [address] [place] [address] Result Comment: The [place] Diabetes Association (ADA) provides guidance for cutoff values for fasting glucose and random glucose. The ADA defines fasting as no caloric intake for at least 8 hours. Fasting plasma glucose results between 100 to 125 mg/dL indicate increased risk for diabetes (prediabetes).Fasting plasma glucose results greater than or equal to 126 mg/dL meet the criteria for diagnosis of diabetes. In the absence of unequivocal hyperglycemia, results should be confirmed by repeat testing. In a patient with classic symptoms of hyperglycemia or hyperglycemic crisis, random plasma glucose results greater than or equal to 200 mg/dL meet the criteria for diagnosis of diabetes.Reference: Standards of Medical Care in Diabetes 2016, [place] [employer]. Diabetes Care. 2016.39(Suppl 1). Performed By: #### 2 4321-2, ####[facility] LABORATORYCLIA [id number] [place] [address] [place] Potassium [Moles/Vol] 4.1 mmol/L Normal 3.7-5.1 [facility] Comment on above: Order Comment: Speci men Type: BLOOD SPECIMENOrdering Facility: [facility] Address: [address] [place] [address] Performed By: #### 2 4321-2, ####[facility] LABORATORYCLIA [id number] [place] [address] [place] Sodium [Moles/Vol] 138 mmol/L Normal 136-144 [facility] Comment on above: Order Comment: Speci men Type: BLOOD SPECIMENOrdering Facility: [facility] Address: [address] [place] [address] Performed By: #### 2 432-2, ####[facility] LABORATORYCLIA [id number] [address] [place] Urea nitrogen [Mass/Vol] 14 mg/dL Normal 9-24 [facility] Comment on above: Order Comment: Speci men Type: BLOOD SPECIMENOrdering Facility: [facility] Address: [address] [place] [address] Performed By: #### 2 432-2, ####[facility] LABORATORYCLIA [id number] [address] [place] CBC panel Auto (Bld)on 02-24 Erythrocyte distribution width (RBC) [Ratio] 13.2 % Normal 11.5-15.0 [facility] Comment on above: Order Comment: Speci men Type: BLOOD SPECIMENOrdering Facility: [facility] Address: [address] [place] [address] Performed By: #### 5 8410-2 ####[facility] LABORATORYCLIA [id number] [address] [place] Hematocrit (Bld) [Volume fraction] 31.5 % Low 39.0-51.0 [facility] Comment on above: Order Comment: Speci men Type: BLOOD SPECIMENOrdering Facility: [facility] Address: [address] [place] [address] Performed By: #### 5 8410-2 ####[facility] LABORATORYCLIA [id number] [address] STATES OF [facility] Hemoglobin (Bld) [Mass/Vol] 10.0 g/dL Low 13.0-17.0 [facility] Comment on above: Order Comment: Speci men Type: BLOOD SPECIMENOrdering Facility: [facility] Address: [address] [place] [address] Performed By: #### 5 8410-2 ####[facility] LABORATORYCLIA [id number] [address] [place] MCH (RBC) [Entitic mass] 27.6 pg Normal 26.0-34.0 [facility] Comment on above: Order Comment: Speci men Type: BLOOD SPECIMENOrdering Facility: [facility] Address: [address] [place] [address] Performed By: #### 5 8410-2 ####[facility] LABORATORYCLIA [id number] [address] [place] MCHC (RBC) [Mass/Vol] 31.7 g/dL Normal 30.5-36.0 [facility] Comment on above: Order Comment: Speci men Type: BLOOD SPECIMENOrdering Facility: [facility] Address: [address] [place] [address] Performed By: #### 5 8410-2 ####[facility] LABORATORYCLIA [id number] [address] [place] MCV (RBC) [Entitic vol] 87.0 fL Normal 80.0-100.0 [facility] Comment on above: Order Comment: Speci men Type: BLOOD SPECIMENOrdering Facility: [facility] Address: [address] [place] [address] Performed By: #### 5 8410-2 ####[facility] LABORATORYCLIA [id number] [address] [place] Nucleated RBC (Bld) [#/Vol] 10*3/uL Normal <0.01 [facility] Comment on above: Order Comment: Speci men Type: BLOOD SPECIMENOrdering Facility: [facility] Address: [address] [place] [address] Performed By: #### 5 8410-2 ####[facility] LABORATORYCLIA [id number] [place] [address] [place] Platelet mean volume (Bld) [Entitic vol] 10.4 fL Normal 9.0-12.7 [facility] Comment on above: Order Comment: Speci men Type: BLOOD SPECIMENOrdering Facility: [facility] Address: [address] [place] [address] Performed By: #### 5 8410-2 ####[facility] LABORATORYCLIA [id number] [address] [place] Platelets (Bld) [#/Vol] 234 10*3/uL Normal 150-400 [facility] Comment on above: Order Comment: Speci men Type: BLOOD SPECIMENOrdering Facility: [facility] Address: [address] [place] [address] Performed By: #### 5 8410-2 ####[facility] LABORATORYCLIA [id number] [address] [place] RBC (Bld) [#/Vol] 3.62 10*6/uL Low 4.20-6.00 [facility] Comment on above: Order Comment: Speci men Type: BLOOD SPECIMENOrdering Facility: [facility] Address: [address] [place] [address] Performed By: #### 5 8410-2 ####[facility] LABORATORYCLIA [id number] [address] [place] WBC (Bld) [#/Vol] 10.34 10*3/uL Normal 3.70-11.00 [facility] Comment on above: Order Comment: Speci men Type: BLOOD SPECIMENOrdering Facility: [facility] Address: [address] [place] [address] Performed By: #### 5 8410-2 ####[facility] LABORATORYCLIA [id number] [address] [place] ED NOTEon 02-24-2025 ED NOTE HNO ID: [id number] Author: JUSTIN CHEEMA, RN Service: Nursing Author Type: Registered Nurse Type: ED Notes Filed: 02/24/2025 00:15 Note Text: Report given to ENGINEER AND GEOLOGIST, all questions answered. Normal [facility] HIGH SENSITIVITY TROPONIN To n 02-24-2025 Troponin T.cardiac High sensitivity method [Mass/Vol] 127 ng/L High <12 [facility] Comment on above: Order Comment: Speci men Type: BLOOD SPECIMENOrdering Facility: [facility] Address: [address] [place] [address] Performed By: #### H STNT ####[facility] LABORATORYCLIA [id number] [address] STATES [facility] Troponin T.cardiac High sensitivity method [Mass/Vol] 117 ng/L High <12 [facility] Comment on above: Order Comment: Speci men Type: BLOOD SPECIMENOrdering Facility: [facility] Address: [address] [place] [address] Performed By: #### H STNT ####[facility] LABORATORYCLIA [id number] [address] [place] Troponin T.cardiac High sensitivity method [Mass/Vol] 84 ng/L High <12 [facility] Comment on above: Order Comment: Speci men Type: BLOOD SPECIMENOrdering Facility: [facility] Address: [address] [place] [address] Performed By: #### H STNT ####[facility] LABORATORYIA [id number] [address] [place] Magnesium SerPl-mCncon 02-24 Magnesium [Mass/Vol] 2.1 mg/dL Normal 1.7-2.3 [facility] Comment on above: Order Comment: Speci men Type: BLOOD SPECIMENOrdering Facility: [facility] Address: [address] [place] [address] Performed By: #### 2 4321-2, 36163-2 ####[facility] LABORATORYCLIA [id number] [place] [address] [place] STAPHYLOCOCCUS AUREUS AND MR SA SCREEN, PCR, NASALon 02-24-2025 S. aureus and MRSA panel JUAN F+probe (Nose) Methicillin-SUSCEPTIBLE Staphylococcus aureus Detected Abnormal Not Detected [facility] Comment on above: Order Comment: Speci men Type: SWABOrdering Facility: [facility] Address: [address] [place] [address] Performed By: #### S APCR ####[facility] LABORATORYCLIA [id number] [place] [address] [place] aPTT PPPon 02-24-2025 aPTT Coag (PPP) [Time] 70.2 s High 23.0-32.4 [facility] Comment on above: Order Comment: Speci men Type: BLOOD SPECIMENOrdering Facility: [facility] Address: [address] [place] [address] Performed By: #### 1 4979-9 ####[facility] LABORATORYCLIA [id number] [place] [address] [place] aPTT Coag (PPP) [Time] 60.8 s High 23.0-32.4 [facility] Comment on above: Order Comment: Speci men Type: BLOOD SPECIMENOrdering Facility: [facility] Address: [address] [place] [address] Performed By: #### 1 4979-9 ####[facility] LABORATORYCLIA [id number] [place] [address] [place] aPTT Coag (PPP) [Time] 85.5 s High 23.0-32.4 [facility] Comment on above: Order Comment: Speci men Type: BLOOD SPECIMENOrdering Facility: [facility] Address: [address] [place] [address] Performed By: #### 1 4979-9 ####[facility] LABORATORYCLIA [id number] [place] [address] [place] aPTT Coag (PPP) [Time] 43.6 s High 23.0-32.4 [facility] Comment on above: Order Comment: Speci men Type: BLOOD SPECIMENOrdering Facility: [facility] Address: [address] [place] [address] Performed By: #### 1 4979-9 ####[facility] LABORATORYCLIA [id number] [place] [id number] [place] Basic metabolic 2000 panelon 02-23-2025 Anion gap [Moles/Vol] 12 mmol/L Normal 8-15 [facility] Comment on above: Order Comment: Speci men Type: BLOOD SPECIMENOrdering Facility: [facility] Address: [address] [place] [address] Performed By: #### 2 4321-2, 08230-8, ####[facility] LABORATORYCLIA [id number] [place] [address] [place] Calcium [Mass/Vol] 9.0 mg/dL Normal 8.5-10.2 [facility] Comment on above: Order Comment: Speci men Type: BLOOD SPECIMENOrdering Facility: [facility] Address: [address] [place] [place] [address] Performed By: #### 2 4321-2, 50393-6, ####[facility] LABORATORYCLIA [id number] [place] [address] [place] Chloride [Moles/Vol] 99 mmol/L Normal 98-107 [facility] Comment on above: Order Comment: Speci men Type: BLOOD SPECIMENOrdering Facility: [facility] Address: [address] [place] [address] Performed By: #### 2 4321-2, 44917-4, ####[facility] LABORATORYCLIA [id number] [place] [address] [place] CO2 [Moles/Vol] 26 mmol/L Normal 22-30 [facility] Comment on above: Order Comment: Speci men Type: BLOOD SPECIMENOrdering Facility: [facility] Address: [address] [place] [address] Performed By: #### 2 4321-2, 04509-1, ####[facility] LABORATORYCLIA [id number] [place] [address] [place] Creatinine [Mass/Vol] 1.00 mg/dL Normal 0.73-1.22 [facility] Comment on above: Order Comment: Speci men Type: BLOOD SPECIMENOrdering Facility: [facility] Address: [address] [place] [address] Performed By: #### 2 4321-2, 10628-9, ####[facility]ITALCL[facility] [id number] [address] OF [facility] Creatinine and Glomerular filtration rate.predicted panel (S/P/Bld) 79 mL/min/1.73m??? Normal >=60 [facility] Comment on above: Order Comment: Speci men Type: BLOOD SPECIMENOrdering Facility: [facility] Address: [address] [place] [address] Result Comment: Mary Kay mated Glomerular Filtration Rate (eGFR) is calculated using the 2020 CKD-EPI creatinine equation. This equation utilizes serum creatinine, sex, and age as parameters. The creatinine assay has traceable calibration to isotope dilution-mass spectrometry. Refer to KDIGO guidelines for clinical interpretation. In patients with unstable renal function, e.g. those with acute kidney injury, the eGFR may not accurately reflect actual GFR. Performed By: #### 2 4321-2, 01575-6, ####[facility] LABORATORYCLIA [id number] [place] [address] [place] Glucose [Mass/Vol] 280 mg/dL High 74-99 [facility] Comment on above: Order Comment: Speci men Type: BLOOD SPECIMENOrdering Facility: [facility] Address: [address] [place] [address] Result Comment: The [place] Diabetes [employer] (ADA) provides guidance for cutoff values for fasting glucose and random glucose. The ADA defines fasting as no caloric intake for at least 8 hours. Fasting plasma glucose results between 100 to 125 mg/dL indicate increased risk for diabetes (prediabetes).Fasting plasma glucose results greater than or equal to 126 mg/dL meet the criteria for diagnosis of diabetes. In the absence of unequivocal hyperglycemia, results should be confirmed by repeat testing. In a patient with classic symptoms of hyperglycemia or hyperglycemic crisis, random plasma glucose results greater than or equal to 200 mg/dL meet the criteria for diagnosis of diabetes.Reference: Standards of Medical Care in Diabetes 2016, [place] [employer]. Diabetes Care. 2016.39(Suppl 1). Performed By: #### 2 4321-2, 40446-0, ####[facility] LABORATORYCLIA [id number] [place] [address] [place] Potassium [Moles/Vol] 4.0 mmol/L Normal 3.7-5.1 [facility] Comment on above: Order Comment: Jose Cruz johnson Type: BLOOD SPECIMENOrdering Facility: [facility] Address: [address] [place] [address] Performed By: #### 2 4321-2, 25515-4, ####[facility] LABORATORYCLIA [id number] [place] [address] [place] Sodium [Moles/Vol] 137 mmol/L Normal 136-144 [facility] Comment on above: Order Comment: Jose Cruz johnson Type: BLOOD SPECIMENOrdering Facility: [facility] Address: [address] [place] [address] Performed By: #### 2 4321-2, 40763-2, ####[facility] LABORATORYCLIA [id number] [place] [address] [place] Urea nitrogen [Mass/Vol] 16 mg/dL Normal 9-24 [facility] Comment on above: Order Comment: Jose Cruz johnson Type: BLOOD SPECIMENOrdering Facility: [facility] Address: [address] [place] [address] Performed By: #### 2 4321-2, 41133-6, ####[facility] LABORATORYCLIA [id number] [place] [address] [place] CBC W Auto Differential pane l (Bld)on 02-23-2025 Basophils (Bld) [#/Vol] 0.06 10*3/uL Normal <0.11 [facility] Comment on above: Order Comment: Speci men Type: BLOOD SPECIMENOrdering Facility: [facility] Address: [address] [place] [address] Performed By: #### 5 7021-8 ####[facility]ORATORYCLIA [id number] [address] [place] Basophils/100 WBC (Bld) 0.5 % Normal [facility] Comment on above: Order Comment: Speci men Type: BLOOD SPECIMENOrdering Facility: [facility] Address: [address] [place] [address] Performed By: #### 5 7021-8 ####[facility] LABORATORYCLIA [id number] [address] Differential cell count method Nom (Bld) Auto Normal [facility] Comment on above: Order Comment: Speci men Type: BLOOD SPECIMENOrdering Facility: [facility] Address: [address] [place] [address] Performed By: #### 5 7021-8 ####[facility] LABORATORYCLIA [id number] [address] [place] Eosinophils (Bld) [#/Vol] 0.12 10*3/uL Normal <0.46 [facility] Comment on above: Order Comment: Speci men Type: BLOOD SPECIMENOrdering Facility: [facility] Address: [address] [place] [address] Performed By: #### 5 7021-8 ####[facility] LABORATORYCLIA [id number] [address] Eosinophils/100 WBC (Bld) 1.1 % Normal [facility] Comment on above: Order Comment: Speci men Type: BLOOD SPECIMENOrdering Facility: [facility] Address: [address] [place] [address] Performed By: #### 5 7021-8 ####[facility] LABORATORYCLIA [id number] [address] STATES [facility] Erythrocyte distribution width (RBC) [Ratio] 13.3 % Normal 11.5-15.0 [facility] Comment on above: Order Comment: Speci men Type: BLOOD SPECIMENOrdering Facility: [facility] Address: [address] [place] [address] Performed By: #### 5 7021-8 ####[facility] LABORATORYCLIA [id number] [address] [place] Hematocrit (Bld) [Volume fraction] 33.7 % Low 39.0-51.0 [facility] Comment on above: Order Comment: Speci men Type: BLOOD SPECIMENOrdering Facility: [facility] Address: [address] [place] [address] Performed By: #### 5 7021-8 ####[facility] LABORATORYCLIA [id number] [address] [place] Hemoglobin (Bld) [Mass/Vol] 10.8 g/dL Low 13.0-17.0 [facility] Comment on above: Order Comment: Speci men Type: BLOOD SPECIMENOrdering Facility: [facility] Address: [address] [place] [address] Performed By: #### 5 7021-8 ####[facility] LABORATORYCLIA [id number] [address] [place] Immature granulocytes (Bld) [#/Vol] 0.08 10*3/uL Normal <0.10 [facility] Comment on above: Order Comment: Speci men Type: BLOOD SPECIMENOrdering Facility: [facility] Address: [address] [place] [address] Performed By: #### 5 7021-8 ####[facility] LABORATORYCLIA [id number] [address] OF [place] Immature granulocytes/100 WBC (Bld) 0.7 % Normal [facility] Comment on above: Order Comment: Speci men Type: BLOOD SPECIMENOrdering Facility: [facility] Address: [address] [place] [address] Performed By: #### 5 7021-8 ####[facility] LABORATORYCLIA [id number] [address] Lymphocytes (Bld) [#/Vol] 1.20 10*3/uL Normal 1.00-4.00 [facility] Comment on above: Order Comment: Speci men Type: BLOOD SPECIMENOrdering Facility: [facility] Address: [address] [place] [address] Performed By: #### 5 7021-8 ####[facility] LABORATORYCLIA [id number] [address] Lymphocytes/100 WBC (Bld) 10.5 % Normal [facility] Comment on above: Order Comment: Speci men Type: BLOOD SPECIMENOrdering Facility: [facility] Address: [address] [place] [address] Performed By: #### 5 7021-8 ####[facility] LABORATORYCLIA [id number] [address] [place] MCH (RBC) [Entitic mass] 26.9 pg Normal 26.0-34.0 [facility] Comment on above: Order Comment: Speci men Type: BLOOD SPECIMENOrdering Facility: [facility] Address: [address] [place] [address] Performed By: #### 5 7021-8 ####[facility] LABORATORYCLIA [id number] [address] [place] MCHC (RBC) [Mass/Vol] 32.0 g/dL Normal 30.5-36.0 [facility] Comment on above: Order Comment: Speci men Type: BLOOD SPECIMENOrdering Facility: [facility] Address: [address] [place] [address] Performed By: #### 5 7021-8 ####[facility] LABORATORYCLIA [id number] [address] MCV (RBC) [Entitic vol] 84.0 fL Normal 80.0-100.0 [facility] Comment on above: Order Comment: Speci men Type: BLOOD SPECIMENOrdering Facility: [facility] Address: [address] [place] [address] Performed By: #### 5 7021-8 ####[facility] LABORATORYCLIA [id number] [address] [place] Monocytes (Bld) [#/Vol] 0.80 10*3/uL Normal <0.87 [facility] Comment on above: Order Comment: Speci men Type: BLOOD SPECIMENOrdering Facility: [facility] Address: [address] [place] [address] Performed By: #### 5 7021-8 ####[facility] LABORATORYCLIA [id number] [address] [place] Monocytes/100 WBC (Bld) 7.0 % Normal [facility] Comment on above: Order Comment: Speci men Type: BLOOD SPECIMENOrdering Facility: [facility] Address: [address] [place] [address] Performed By: #### 5 7021-8 ####[facility] LABORATORYCLIA [id number] [address] [place] Neutrophils (Bld) [#/Vol] 9.12 10*3/uL High 1.45-7.50 [facility] Comment on above: Order Comment: Speci men Type: BLOOD SPECIMENOrdering Facility: [facility] Address: [address] [place] [address] Performed By: #### 5 7021-8 ####[facility]ORATORYCLIA [id number] [address] [place] Neutrophils/100 WBC (Bld) 80.2 % Normal [facility] Comment on above: Order Comment: Speci men Type: BLOOD SPECIMENOrdering Facility: [facility] Address: [address] [place] [address] Performed By: #### 5 7021-8 ####[facility]ORATORYCLIA [id number] [address] [place] Nucleated RBC (Bld) [#/Vol] 10*3/uL Normal <0.01 [facility] Comment on above: Order Comment: Speci men Type: BLOOD SPECIMENOrdering Facility: [facility] Address: [address] [place] [address] Performed By: #### 5 7021-8 ####[facility] LABORATORYCLIA [id number] [place] [address] [place] Nucleated RBC/100 WBC (Bld) [Ratio] 0.0 /100 WBC Normal [facility] Comment on above: Order Comment: Speci men Type: BLOOD SPECIMENOrdering Facility: [facility] Address: [address] [place] [address] Performed By: #### 5 7021-8 ####[facility] LABORATORYCLIA [id number] [place] [address] [place] Platelet mean volume (Bld) [Entitic vol] 9.9 fL Normal 9.0-12.7 [facility] Comment on above: Order Comment: Speci men Type: BLOOD SPECIMENOrdering Facility: [facility] Address: [address] [place] [address] Performed By: #### 5 7021-8 ####[facility] LABORATORYCLIA [id number] [address] [place] Platelets (Bld) [#/Vol] 252 10*3/uL Normal 150-400 [facility] Comment on above: Order Comment: Speci men Type: BLOOD SPECIMENOrdering Facility: [facility] Address: [address] [place] [address] Performed By: #### 5 7021-8 ####[facility] LABORATORYCLIA [id number] [place] [address] [place] RBC (Bld) [#/Vol] 4.01 10*6/uL Low 4.20-6.00 [facility] Comment on above: Order Comment: Speci men Type: BLOOD SPECIMENOrdering Facility: [facility] Address: [address] [place] [address] [place] [address] Performed By: #### 5 7021-8 ####[facility] LABORATORYCLIA [id number] [place] [address] [facility] WBC (Bld) [#/Vol] 11.38 10*3/uL High 3.70-11.00 [facility] Comment on above: Order Comment: Speci men Type: BLOOD SPECIMENOrdering Facility: [facility] Address: [address] [place] [address] Performed By: #### 5 7021-8 ####[facility] LABORATORYCLIA [id number] [place] [address] [facility] ED NOTEon 02-23-2025 ED NOTE HNO ID: [id number] Author: JUSTIN CHEEMA RN Service: Nursing Author Type: Registered Nurse Type: ED Notes Filed: 02/23/2025 21:55 Note Text: Nitro drip order ended. All needs currently met. Normal [facility] ED NOTE Normal [facility] ED NOTE Normal [facility] ED NOTE HNO ID: [id number] Author: FRANCOISE KELSEY RN Service: Emergency Medicine Author Type: Registered Nurse Type: ED Notes Filed: 02/23/2025 21:12 Note Text: Gave report to Eloy KARIMI [facility] ED NOTE HNO ID: [id number] Author: FRANCOISE KELSEY RN Service: Emergency Medicine Author Type: Registered Nurse Type: ED Notes Filed: 02/23/2025 20:52 Note Text: Pt states he has no CP at this time. Normal [facility] ED NOTE Normal [facility] ED NOTE HNO ID: [id number] Author: FRANCOISE KELSEY RN Service: Emergency Medicine Author Type: Registered Nurse Type: ED Notes Filed: 02/23/2025 20:46 Note Text: Giving 0.4mg of Nitro at this time Normal [facility] ED NOTE HNO ID: [id number] Author: FRANCOISE KELSEY RN Service: Emergency Medicine Author Type: Registered Nurse Type: ED Notes Filed: 02/23/2025 20:46 Note Text: Giving 324mg of ASA at this time Normal [facility] ED NOTE HNO ID: [id number] Author: FRANCOISE KELSEY RN Service: Emergency Medicine Author Type: Registered Nurse Type: ED Notes Filed: 02/23/2025 20:40 Note Text: Obtaining more access at this time Normal [facility] ED NOTE HNO ID: [id number] Author: FRANCOISE KELSEY RN Service: Emergency Medicine Author Type: Registered Nurse Type: ED Notes Filed: 02/23/2025 20:38 Note Text: Applied Zol pads Normal [facility] ED NOTE HNO ID: [id number] Author: FRANCOISE KELSEY RN Service: Emergency Medicine Author Type: Registered Nurse Type: ED Notes Filed: 02/23/2025 20:39 Note Text: ED attending at bedside Normal [facility] ED NOTE HNO ID: [id number] Author: FRANCOISE KELSEY RN Service: Emergency Medicine Author Type: Registered Nurse Type: ED Notes Filed: 02/23/2025 20:36 Note Text: Dr. Montes at bedside [facility] ED NOTE HNO ID: [id number] Author: FRANCOISE KELSEY RN Service: Emergency Medicine Author Type: Registered Nurse Type: ED Notes Filed: 02/23/2025 20:36 Note Text: STEMI called at this time [facility] ED NOTE Normal [facility] ED PROV NOTEon 02-23-2025 ED PROV NOTE Normal [facility] ED PROV NOTE Normal [facility] HIGH SENSITIVITY TROPONIN T (INITIAL)on 02-23-2025 Troponin T.cardiac High sensitivity method [Mass/Vol] 29 ng/L High <12 [facility] Comment on above: Order Comment: Speci men Type: BLOOD SPECIMENOrdering Facility: [facility] Address: [address] [place] [address] Performed By: #### L [id number] ####[facility] LABORATORYCLIA [id number] [place] [address] [place] HIGH SENSITIVITY TROPONIN T (SECOND)on 02-23-2025 Troponin T.cardiac High sensitivity method [Mass/Vol] 40 ng/L High <12 [facility] Comment on above: Order Comment: Speci men Type: BLOOD SPECIMENOrdering Facility: [facility] Address: [address] [place] [address] Performed By: #### L [id number] ####[facility] LABORATORYCLIA [id number] [address] HIGH SENSITIVITY TROPONIN T (THIRD) 3 HRS AFTER INITIALon 02-23-2025 Troponin T.cardiac High sensitivity method [Mass/Vol] 53 ng/L High <12 [facility] Comment on above: Order Comment: Speci men Type: BLOOD SPECIMENOrdering Facility: [facility] Address: [address] [place] [address] Performed By: #### L [id number] ####[facility] LABORATORYCLIA [id number] [address] HISTORY PHYSICALon HISTORY PHYSICAL Normal [facility] Magnesium SerPl-mCncon 02-23 Magnesium [Mass/Vol] 1.4 mg/dL Low 1.7-2.3 [facility] Comment on above: Order Comment: Speci men Type: BLOOD SPECIMENOrdering Facility: [facility] Address: [address] [place] [address] Performed By: #### 2 4321-2, 69194-9, 18116-0 ####[facility] LABORATORYCLIA [id number] [address] NT-proBNP SerPl-mCncon 02-23 Natriuretic peptide.B prohormone N-Terminal [Mass/Vol] 191 pg/mL High <125 [facility] Comment on above: Order Comment: Speci men Type: BLOOD SPECIMENOrdering Facility: [facility] Address: [address] [place] [address] Performed By: #### 2 4321-2, 20130-8, 56573-4 ####[facility] LABORATORYCLIA [id number] [address] [place] PT panel Coag (PPP)on 2024 INR Coag (PPP) [Relative time] 0.9 {INR} Normal 0.9-1.3 [facility] Comment on above: Order Comment: Jose Cruz johnson Type: BLOOD SPECIMENOrdering Facility: [facility] Address: [address] [place], [place] [address] Result Comment: Antionette min K Antagonist (VKA) Therapeutic Range: INR 2 to 3 (Target INR of 2.5)Note: For patients treated with VKA drugs, such as warfarin, the [place] [employer] 2012 Guideline recommends a therapeutic INR range of 2 to 3 (target INR of 2.5). This recommendation includes high-risk patients with antiphospholipid syndrome with previous arterial or venous thromboembolism, current-generation mechanical or bioprosthetic aortic heart valve replacement.Note: Patients with mechanical aortic valve replacement and additional risk factors for thromboembolic events (atrial fibrillation, previous thromboembolism, LV dysfunction, hypercoagulable conditions) or an older generation mechanical AVR (i.e., ball in-Cage) or any mechanical MVR should have a INR therapeutic range of 2.5 to 3.5 (target INR of 3).Adelaida ROSAS, et al. Chest 2012, 141:7S-47SNishnidia RA, et al. [facility] 2017, 70: 252-289 Performed By: #### 3 4528-0, 28000-1 ####[facility] LABORATORYCLIA [id number] [place] [address] [place] PT Coag (PPP) [Time] 10.3 s Normal 9.7-13.0 [facility] Comment on above: Order Comment: Jose Cruz johnson Type: BLOOD SPECIMENOrdering Facility: [facility] Address: [address] [place] [id number] Performed By: #### 3 4528-0, 79260-3 ####[facility] LABORATORYCLIA [id number] [place] [address] [place] XR CHEST 1V FRONTALon 2024 XR CHEST 1V FRONTAL Normal [facility] aPTT PPPon 02-23-2025 aPTT Coag (PPP) [Time] 30.4 s Normal 23.0-32.4 [facility] Comment on above: Order Comment: Speci men Type: BLOOD SPECIMENOrdering Facility: [facility] Address: [address] [place] [address] Performed By: #### 3 4528-0, 62212-4 ####[facility]ORATORYCLIA [id number] [place] [id number] [place] Basic metabolic 2000 panelon 02-05-2025 Anion gap [Moles/Vol] 13 mmol/L Normal 8-15 [facility] Comment on above: Order Comment: Speci men Type: BLOOD SPECIMENOrdering Facility: [facility] Address: [address] [place] [address] Performed By: #### 2 4321-2 ####[facility]ORATORYCLIA [id number] [place] [address] [place] Calcium [Mass/Vol] 10.1 mg/dL Normal 8.5-10.2 [facility] Comment on above: Order Comment: Speci men Type: BLOOD SPECIMENOrdering Facility: [facility] Address: [address] [place] [address] Performed By: #### 2 4321-2 ####[facility]ORATORYCLIA [id number] [place] [address] [place] Chloride [Moles/Vol] 98 mmol/L Normal 98-107 [facility] Comment on above: Order Comment: Speci men Type: BLOOD SPECIMENOrdering Facility: Address: [address] [place] [address] Performed By: #### 2 4321-2 ####[facility]ORATORYCLIA [id number] [place] [address] [place] CO2 [Moles/Vol] 26 mmol/L Normal 22-30 [facility] Comment on above: Order Comment: Speci men Type: BLOOD SPECIMENOrdering Facility: [facility] Address: [place] [address] Performed By: #### 2 4321-2 ####[facility]ORATORYCLIA [id number] [place] [address] [place] Creatinine [Mass/Vol] 1.02 mg/dL Normal 0.73-1.22 [facility] Comment on above: Order Comment: Jose Cruz johnson Type: BLOOD SPECIMENOrdering Facility: [address] Address: [address] [place] [address] Performed By: #### 2 4321-2 ####[facility] LABORATORYCLIA [id number] [address] Creatinine and Glomerular filtration rate.predicted panel (S/P/Bld) 78 mL/min/1.73m??? Normal >=60 [facility] Comment on above: Order Comment: Dahianamarleny johnson Type: BLOOD SPECIMENOrdering Facility: [address] Address: [facility] [place] [address] Result Comment: Mary Kay mated Glomerular Filtration Rate (eGFR) is calculated using the 2020 CKD-EPI creatinine equation. This equation utilizes serum creatinine, sex, and age as parameters. The creatinine assay has traceable calibration to isotope dilution-mass spectrometry. Refer to KDIGO guidelines for clinical interpretation. In patients with unstable renal function, e.g. those with acute kidney injury, the eGFR may not accurately reflect actual GFR. Performed By: #### 2 4321-2 ####[facility] LABORATORYCLIA [id number] [place] [address] [place] Glucose [Mass/Vol] 240 mg/dL High 74-99 [facility] Comment on above: Order Comment: Jose Cruz johnson Type: BLOOD SPECIMENOrdering Facility: [address] Address: [address] [place] [address] Result Comment: The [place] [employer] (ADA) provides guidance for cutoff values for fasting glucose and random glucose. The ADA defines fasting as no caloric intake for at least 8 hours. Fasting plasma glucose results between 100 to 125 mg/dL indicate increased risk for diabetes (prediabetes).Fasting plasma glucose results greater than or equal to 126 mg/dL meet the criteria for diagnosis of diabetes. In the absence of unequivocal hyperglycemia, results should be confirmed by repeat testing. In a patient with classic symptoms of hyperglycemia or hyperglycemic crisis, random plasma glucose results greater than or equal to 200 mg/dL meet the criteria for diagnosis of diabetes.Reference: Standards of Medical Care in Diabetes 2016, [place] [employer]. Diabetes Care. 2016.39(Suppl 1). Performed By: #### 2 4321-2 ####[facility] LABORATORYCLIA [id number] [address] [place] Potassium [Moles/Vol] 4.1 mmol/L Normal 3.7-5.1 [facility] Comment on above: Order Comment: Speci men Type: BLOOD SPECIMENOrdering Facility: [facility] Address: [address] [place] [address] Performed By: #### 2 4321-2 ####[facility] LABORATORYCLIA [id number] [place] [address] [place] Sodium [Moles/Vol] 137 mmol/L Normal 136-144 [facility] Comment on above: Order Comment: Speci men Type: BLOOD SPECIMENOrdering Facility: oster Address: [address] [place] [address] Performed By: #### 2 4321-2 ####[facility] LABORATORYCLIA [id number] [place] [address] [place] Urea nitrogen [Mass/Vol] 19 mg/dL Normal 9-24 [facility] Comment on above: Order Comment: Speci men Type: BLOOD SPECIMENOrdering Facility: oster Address: [address] [place] [address] Performed By: #### 2 4321-2 ####[facility] LABORATORYCLIA [id number] [place] [address] [place] CNOVon 01-29-2025 CNOV Normal [facility] CNOVon 11-23-2024 CNOV Normal [facility] CNPNon 11-22-2024 CNPN Normal [facility] CNPNon 11-16-2024 CNPN Normal [facility] CNPTOUTREACHon 11-15-2024 CNPTOUTREACH Normal [facility] Basic metabolic 2000 panelon 11-14-2024 Anion gap [Moles/Vol] 12 mmol/L Normal 8-15 [facility] Comment on above: Order Comment: Speci men Type: BLOOD SPECIMENOrdering Facility: [facility] Address: [address] [place] [address] Performed By: #### 2 4321-2 ####[facility] LABORATORYCLIA [id number] [place] [address] [place] Calcium [Mass/Vol] 10.1 mg/dL Normal 8.5-10.2 [facility] Comment on above: Order Comment: Speci men Type: BLOOD SPECIMENOrdering Facility: [facility] Address: [address] [place] [address] Performed By: #### 2 4321-2 ####[facility] LABORATORYCLIA [id number] [place] [address] [place] Chloride [Moles/Vol] 103 mmol/L Normal 98-107 [facility] Comment on above: Order Comment: Speci men Type: BLOOD SPECIMENOrdering Facility: [facility] Address: [address] [place] [address] Performed By: #### 2 4321-2 ####[facility] LABORATORYCLIA [id number] [address] [place] CO2 [Moles/Vol] 25 mmol/L Normal 22-30 [facility] Comment on above: Order Comment: Speci men Type: BLOOD SPECIMENOrdering Facility: [facility] Address: [address] [place] [address] Performed By: #### 2 4321-2 ####[facility] LABORATORYCLIA [id number] [address] [place] Creatinine [Mass/Vol] 1.07 mg/dL Normal 0.73-1.22 [facility] Comment on above: Order Comment: Speci men Type: BLOOD SPECIMENOrdering Facility: [facility] Address: [address] [place] [address] Performed By: #### 2 4321-2 ####[facility] LABORATORYCLIA [id number] [address] Creatinine and Glomerular filtration rate.predicted panel (S/P/Bld) 74 mL/min/1.73m??? Normal >=60 [facility] Comment on above: Order Comment: Speci men Type: BLOOD SPECIMENOrdering Facility: [facility] Address: [address] [place] [address] Result Comment: Mary Kay mated Glomerular Filtration Rate (eGFR) is calculated using the 2020 CKD-EPI creatinine equation. This equation utilizes serum creatinine, sex, and age as parameters. The creatinine assay has traceable calibration to isotope dilution-mass spectrometry. Refer to KDIGO guidelines for clinical interpretation. In patients with unstable renal function, e.g. those with acute kidney injury, the eGFR may not accurately reflect actual GFR. Performed By: #### 2 4321-2 ####[facility] LABORATORYCLIA [id number] [place] [address] [place] Glucose [Mass/Vol] 153 mg/dL High 74-99 [facility] Comment on above: Order Comment: Jose Cruz johnson Type: BLOOD SPECIMENOrdering Facility: [facility] Address: [address] [place] [address] Result Comment: The [place] [employer] (ADA) provides guidance for cutoff values for fasting glucose and random glucose. The ADA defines fasting as no caloric intake for at least 8 hours. Fasting plasma glucose results between 100 to 125 mg/dL indicate increased risk for diabetes (prediabetes).Fasting plasma glucose results greater than or equal to 126 mg/dL meet the criteria for diagnosis of diabetes. In the absence of unequivocal hyperglycemia, results should be confirmed by repeat testing. In a patient with classic symptoms of hyperglycemia or hyperglycemic crisis, random plasma glucose results greater than or equal to 200 mg/dL meet the criteria for diagnosis of diabetes.Reference: Standards of Medical Care in Diabetes 2016, [place] [employer]. Diabetes Care. 2016.39(Suppl 1). Performed By: #### 2 4321-2 ####[facility] LABORATORYCLIA [id number] [place] [address] [place] Potassium [Moles/Vol] 4.2 mmol/L Normal 3.7-5.1 [facility] Comment on above: Order Comment: Jose Cruz johnson Type: BLOOD SPECIMENOrdering Facility: [facility] Address: [address] [id number] Performed By: #### 2 4321-2 ####[facility] LABORATORYCLIA [id number] [place] [address] [place] Sodium [Moles/Vol] 140 mmol/L Normal 136-144 [facility] Comment on above: Order Comment: Speci men Type: BLOOD SPECIMENOrdering Facility: [facility] Address: [address] [place] [address] Performed By: #### 2 4321-2 ####[facility] LABORATORYCLIA [id number] [place] [address] [place] Urea nitrogen [Mass/Vol] 20 mg/dL Normal 9-24 [facility] Comment on above: Order Comment: Speci men Type: BLOOD SPECIMENOrdering Facility: [facility] Address: [address] [place] [address] Performed By: #### 2 4321-2 ####[facility] LABORATORYCLIA [id number] [place] [address] [place] CNOVon 11-08-2024 CNOV Normal [facility] CNPTOUTREACHon 11-06-2024 CNPTOUTREACH Normal [facility] CBC panel Auto (Bld)on 11-04 Erythrocyte distribution width (RBC) [Ratio] 12.7 % Normal 11.5-15.0 [facility] Comment on above: Order Comment: Speci men Type: BLOOD SPECIMENOrdering Facility: [facility] Address: [address] [place] [address] Performed By: #### 5 8410-2 ####[facility] LABCLIA [id number] [place] [address] [place] Hematocrit (Bld) [Volume fraction] 25.0 % Low 39.0-51.0 [facility] Comment on above: Order Comment: Speci men Type: BLOOD SPECIMENOrdering Facility: [facility] Address: [address] [place] [address] Performed By: #### 5 8410-2 ####[facility] LABCLIA [id number] [place] [address] [place] Hemoglobin (Bld) [Mass/Vol] 8.2 g/dL Low 13.0-17.0 [facility] Comment on above: Order Comment: Speci men Type: BLOOD SPECIMENOrdering Facility: [facility] Address: [address] [place] [address] Performed By: #### 5 8410-2 ####[facility] LABIA [id number] [place] [address] [place] MCH (RBC) [Entitic mass] 29.7 pg Normal 26.0-34.0 [facility] Comment on above: Order Comment: Speci men Type: BLOOD SPECIMENOrdering Facility: [facility] Address: [address] [place] [address] Performed By: #### 5 8410-2 ####[facility] LAB[facility] [id number] [place] [address] [place] MCHC (RBC) [Mass/Vol] 32.8 g/dL Normal 30.5-36.0 [facility] Comment on above: Order Comment: Speci men Type: BLOOD SPECIMENOrdering Facility: [facility] Address: [address] [place] [address] Performed By: #### 5 8410-2 ####[facility] LAB[facility] [id number] [place] [address] [place] MCV (RBC) [Entitic vol] 90.6 fL Normal 80.0-100.0 [facility] Comment on above: Order Comment: Speci men Type: BLOOD SPECIMENOrdering Facility: [facility] Address: [address] [place] [address] Performed By: #### 5 8410-2 ####[facility] LABIA [id number] [place] [address] [place] Nucleated RBC (Bld) [#/Vol] 10*3/uL Normal <0.01 [facility] Comment on above: Order Comment: Speci men Type: BLOOD SPECIMENOrdering Facility: [facility] Address: [address] [place] [address] Performed By: #### 5 8410-2 ####[facility] LABCLIA [id number] [place] [address] [place] Platelet mean volume (Bld) [Entitic vol] 10.7 fL Normal 9.0-12.7 [facility] Comment on above: Order Comment: Speci men Type: BLOOD SPECIMENOrdering Facility: [facility] Address: [address] [place] [address] Performed By: #### 5 8410-2 ####[facility] LABCLIA [id number] [place] [address] [place] Platelets (Bld) [#/Vol] 264 10*3/uL Normal 150-400 [facility] Comment on above: Order Comment: Speci men Type: BLOOD SPECIMENOrdering Facility: [facility] Address: [address] [place] [address] Performed By: #### 5 8410-2 ####[facility] LABCLIA [id number] [place] [address] [place] RBC (Bld) [#/Vol] 2.76 10*6/uL Low 4.20-6.00 [facility] Comment on above: Order Comment: Speci men Type: BLOOD SPECIMENOrdering Facility: [facility] Address: [address] [place] [address] Performed By: #### 5 8410-2 ####[facility] LABCLIA [id number] [place] [address] [place] WBC (Bld) [#/Vol] 8.25 10*3/uL Normal 3.70-11.00 [facility] Comment on above: Order Comment: Speci men Type: BLOOD SPECIMENOrdering Facility: [facility] Address: [address] [place] [address] Performed By: #### 5 8410-2 ####[facility] LABCLIA [id number] [address] [address] [place] CNDSon 11-04-2024 CNDS Normal [facility] Comprehensive metabolic 2000 panelon 11-04-2024 Albumin [Mass/Vol] 3.8 g/dL Low 3.9-4.9 [facility] Comment on above: Order Comment: Speci men Type: BLOOD SPECIMENOrdering Facility: [facility] Address: [address] [place] [address] Performed By: #### 2 432-8, ####[facility] LABCLIA [id number] [place] [address] [place] ALP [Catalytic activity/Vol] 63 U/L Normal 38-113 [facility] Comment on above: Order Comment: Speci men Type: BLOOD SPECIMENOrdering Facility: [facility] Address: [address] [place] [address] Performed By: #### 2 432-8, ####[facility] LABCLIA [id number] [place] [id number] [place] ALT [Catalytic activity/Vol] 15 U/L Normal 10-54 [facility] Comment on above: Order Comment: Speci men Type: BLOOD SPECIMENOrdering Facility: [facility] Address: [address] [place], [place] [address] Performed By: #### 2 4323-8, ####[facility] LABCLIA [id number] [place] [id number] [place] Anion gap [Moles/Vol] 12 mmol/L Normal 8-15 [facility] Comment on above: Order Comment: Speci men Type: BLOOD SPECIMENOrdering Facility: [facility] Address: [address] [place], [place] [address] Performed By: #### 2 4323-8, ####[facility] LABCLIA [id number] [place] [address] [place] AST [Catalytic activity/Vol] 10 U/L Low 14-40 [facility] Comment on above: Order Comment: Speci men Type: BLOOD SPECIMENOrdering Facility: [facility] Address: [address] [place] [address] Performed By: #### 2 4323-8, ####[facility] LABCLIA [id number] [place] [address] [place] Bilirubin [Mass/Vol] 0.3 mg/dL Normal 0.2-1.3 [facility] Comment on above: Order Comment: Speci men Type: BLOOD SPECIMENOrdering Facility: [facility] Address: [address] [place] [address] Performed By: #### 2 4323-8, ####[facility] LABCLIA [id number] [place] [address] [place] Calcium [Mass/Vol] 9.7 mg/dL Normal 8.5-10.2 [facility] Comment on above: Order Comment: Speci men Type: BLOOD SPECIMENOrdering Facility: [facility] Address: [address] [place] [address] Performed By: #### 2 4323-8, ####[facility] LABCLIA [id number] [place] [address] [place] Chloride [Moles/Vol] 101 mmol/L Normal 98-107 [facility] Comment on above: Order Comment: Speci men Type: BLOOD SPECIMENOrdering Facility: [facility] Address: [address] [place] [address] Performed By: #### 2 4323-8, ####[facility] LABCLIA [id number] [place] [address] [place] CO2 [Moles/Vol] 22 mmol/L Normal 22-30 [facility] Comment on above: Order Comment: Speci men Type: BLOOD SPECIMENOrdering Facility: [facility] Address: [address] [place], [place] [address] Performed By: #### 2 4323-8, ####[facility] LABCLIA [id number] [address] [address] [place] Creatinine [Mass/Vol] 1.62 mg/dL High 0.73-1.22 [facility] Comment on above: Order Comment: Speci men Type: BLOOD SPECIMENOrdering Facility: [facility] Address: [address] [place] [address] Performed By: #### 2 4323-8, ####[facility] LABIA [id number] [place] [address] [place] Creatinine and Glomerular filtration rate.predicted panel (S/P/Bld) 45 mL/min/1.73m??? Low >=60 [facility] Comment on above: Order Comment: Jose Cruz men Type: BLOOD SPECIMENOrdering Facility: [facility] Address: [address] [place] [address] Result Comment: Mary Kay mated Glomerular Filtration Rate (eGFR) is calculated using the 2020 CKD-EPI creatinine equation. This equation utilizes serum creatinine, sex, and age as parameters. The creatinine assay has traceable calibration to isotope dilution-mass spectrometry. Refer to KDIGO guidelines for clinical interpretation. In patients with unstable renal function, e.g. those with acute kidney injury, the eGFR may not accurately reflect actual GFR. Performed By: #### 2 4323-8, ####[facility] LABIA [id number] [address] [address] [place] Glucose [Mass/Vol] 178 mg/dL High 74-99 [facility] Comment on above: Order Comment: Jose Cruz men Type: BLOOD SPECIMENOrdering Facility: [facility] Address: [address] [place] [address] Result Comment: The [place] Diabetes [employer] (ADA) provides guidance for cutoff values for fasting glucose and random glucose. The ADA defines fasting as no caloric intake for at least 8 hours. Fasting plasma glucose results between 100 to 125 mg/dL indicate increased risk for diabetes (prediabetes).Fasting plasma glucose results greater than or equal to 126 mg/dL meet the criteria for diagnosis of diabetes. In the absence of unequivocal hyperglycemia, results should be confirmed by repeat testing. In a patient with classic symptoms of hyperglycemia or hyperglycemic crisis, random plasma glucose results greater than or equal to 200 mg/dL meet the criteria for diagnosis of diabetes.Reference: Standards of Medical Care in Diabetes 2016, [place] [employer]. Diabetes Care. 2016.39(Suppl 1). Performed By: #### 2 4323-04, ####[facility] LABCLIA [id number] [place] [address] [place] Potassium [Moles/Vol] 4.5 mmol/L Normal 3.7-5.1 [facility] Comment on above: Order Comment: Speci men Type: BLOOD SPECIMENOrdering Facility: [facility] Address: [address] [place] [address] Performed By: #### 2 4323-04, ####[facility] LABCLIA [id number] [place] [address] [place] Protein [Mass/Vol] 6.9 g/dL Normal 6.3-8.0 [facility] Comment on above: Order Comment: Speci men Type: BLOOD SPECIMENOrdering Facility: [facility] Address: [address] [place] [address] Performed By: #### 2 4323-04, ####[facility] LABCLIA [id number] [place] [id number] [place] Sodium [Moles/Vol] 135 mmol/L Low 136-144 [facility] Comment on above: Order Comment: Speci men Type: BLOOD SPECIMENOrdering Facility: [facility] Address: [address] [place] [address] Performed By: #### 2 4323-04, ####[facility] LABCLIA [id number] [place] [address] [place] Urea nitrogen [Mass/Vol] 29 mg/dL High 9-24 [facility] Comment on above: Order Comment: Speci men Type: BLOOD SPECIMENOrdering Facility: [facility] Address: [address] [place] [address] Performed By: #### 2 4323-8, 72635-8 ####[facility] LABCLIA [id number] [place] [address] [place] Magnesium SerPl-mCncon 11-04 Magnesium [Mass/Vol] 1.9 mg/dL Normal 1.7-2.3 [facility] Comment on above: Order Comment: Speci men Type: BLOOD SPECIMENOrdering Facility: [facility] Address: [address] [place] [address] Performed By: #### 2 4323-8, 20013-7 ####[facility] LABCLIA [id number] [place] [address] [place] CASE MANAGEMon 11-03-2024 CASE MANAGEM Normal [facility] CBC panel Auto (Bld)on 11-03 Erythrocyte distribution width (RBC) [Ratio] 12.8 % Normal 11.5-15.0 [facility] Comment on above: Order Comment: Speci men Type: BLOOD SPECIMENOrdering Facility: [facility] Address: [address] [place] [address] Performed By: #### 5 8410-2 ####[facility] LABCLIA [id number] [place] [address] [place] Hematocrit (Bld) [Volume fraction] 23.5 % Low 39.0-51.0 [facility] Comment on above: Order Comment: Speci men Type: BLOOD SPECIMENOrdering Facility: [facility] Address: [address] [place] [address] Performed By: #### 5 8410-2 ####[facility] LABCLIA [id number] [place] [address] [place] Hemoglobin (Bld) [Mass/Vol] 7.5 g/dL Low 13.0-17.0 [facility] Comment on above: Order Comment: Speci men Type: BLOOD SPECIMENOrdering Facility: [facility] Address: [address] [place] [address] Performed By: #### 5 8410-2 ####[facility] LABIA [id number] [place] [address] [place] MCH (RBC) [Entitic mass] 29.5 pg Normal 26.0-34.0 [facility] Comment on above: Order Comment: Speci men Type: BLOOD SPECIMENOrdering Facility: [facility] Address: [address] [place] [address] Performed By: #### 5 8410-2 ####[facility] [id number] [place] [address] [place] MCHC (RBC) [Mass/Vol] 31.9 g/dL Normal 30.5-36.0 [facility] Comment on above: Order Comment: Speci men Type: BLOOD SPECIMENOrdering Facility: [facility] Address: [address] [place] [address] Performed By: #### 5 8410-2 ####[facility] [id number] [place] [address] [place] MCV (RBC) [Entitic vol] 92.5 fL Normal 80.0-100.0 [facility] Comment on above: Order Comment: Speci men Type: BLOOD SPECIMENOrdering Facility: [facility] Address: [address] [place] [address] Performed By: #### 5 8410-2 ####[facility] LABIA [id number] [place] [address] [place] Nucleated RBC (Bld) [#/Vol] 10*3/uL Normal <0.01 [facility] Comment on above: Order Comment: Speci men Type: BLOOD SPECIMENOrdering Facility: [facility] Address: [address] [place] [address] Performed By: #### 5 8410-2 ####[facility] LABCLIA [id number] [place] [address] [place] Platelet mean volume (Bld) [Entitic vol] 10.6 fL Normal 9.0-12.7 [facility] Comment on above: Order Comment: Speci men Type: BLOOD SPECIMENOrdering Facility: [facility] Address: [address] [place] [address] Performed By: #### 5 8410-2 ####[facility] LABIA [id number] [place] [address] [place] Platelets (Bld) [#/Vol] 231 10*3/uL Normal 150-400 [facility] Comment on above: Order Comment: Speci men Type: BLOOD SPECIMENOrdering Facility: [facility] Address: [address] [place] [address] Performed By: #### 5 8410-2 ####[facility] LABIA [id number] [place] [address] [place] RBC (Bld) [#/Vol] 2.54 10*6/uL Low 4.20-6.00 [facility] Comment on above: Order Comment: Speci men Type: BLOOD SPECIMENOrdering Facility: [facility] Address: [address] [place] [address] Performed By: #### 5 8410-2 ####[facility] LABIA [id number] [place] [address] [place] WBC (Bld) [#/Vol] 8.37 10*3/uL Normal 3.70-11.00 [facility] Comment on above: Order Comment: Speci men Type: BLOOD SPECIMENOrdering Facility: [facility] Address: [address] [id number] Performed By: #### 5 8410-2 ####[facility] LABCLIA [id number] [address] [address] [place] CONSULTon 11-03-2024 CONSULT Normal [facility] Comprehensive metabolic 2000 panelon 11-03-2024 Albumin [Mass/Vol] 3.8 g/dL Low 3.9-4.9 [facility] Comment on above: Order Comment: Speci men Type: BLOOD SPECIMENOrdering Facility: [facility] Address: [address] [place] [address] Performed By: #### 1 9123-9, 64552-6 ####[facility] LABCLIA [id number] [place] [address] [place] ALP [Catalytic activity/Vol] 56 U/L Normal 38-113 [facility] Comment on above: Order Comment: Speci men Type: BLOOD SPECIMENOrdering Facility: [facility] Address: [address] [place] [address] Performed By: #### 1 9123-9, 78223-5 ####[facility] LABIA [id number] [place] [address] [place] ALT [Catalytic activity/Vol] 16 U/L Normal 10-54 [facility] Comment on above: Order Comment: Speci men Type: BLOOD SPECIMENOrdering Facility: [facility] Address: [address] [place] [address] Performed By: #### 1 9123-9, 58506-7 ####[facility] LABCLIA [id number] [place] [address] [place] Anion gap [Moles/Vol] 10 mmol/L Normal 8-15 [facility] Comment on above: Order Comment: Speci men Type: BLOOD SPECIMENOrdering Facility: [facility] Address: [address] [place], [place] [address] Performed By: #### 1 23-9, ####[facility] LABCLIA [id number] [place] [address] [place] AST [Catalytic activity/Vol] 12 U/L Low 14-40 [facility] Comment on above: Order Comment: Speci men Type: BLOOD SPECIMENOrdering Facility: [facility] Address: [address] [place] [address] Performed By: #### 1 23-9, ####[facility] LABCLIA [id number] [place] [address] [place] Bilirubin [Mass/Vol] 0.3 mg/dL Normal 0.2-1.3 [facility] Comment on above: Order Comment: Speci men Type: BLOOD SPECIMENOrdering Facility: [facility] Address: [address] [place] [address] Performed By: #### 1 239, ####[facility] LABIA [id number] [place] [address] [place] Calcium [Mass/Vol] 9.2 mg/dL Normal 8.5-10.2 [facility] Comment on above: Order Comment: Speci men Type: BLOOD SPECIMENOrdering Facility: [facility] Address: [address] [place] [address] Performed By: #### 1 239, ####[facility] LABCLIA [id number] [place] [address] [place] Chloride [Moles/Vol] 101 mmol/L Normal 98-107 [facility] Comment on above: Order Comment: Speci men Type: BLOOD SPECIMENOrdering Facility: [facility] Address: [address] [place] [address] Performed By: #### 1 9123-9, ####[facility] LABIA [id number] [place] [address] [place] CO2 [Moles/Vol] 25 mmol/L Normal 22-30 [facility] Comment on above: Order Comment: Speci men Type: BLOOD SPECIMENOrdering Facility: [facility] Address: [address] [place] [address] Performed By: #### 1 9123-9, ####[facility] LABCLIA [id number] [place] [address] [place] Creatinine [Mass/Vol] 1.65 mg/dL High 0.73-1.22 [facility] Comment on above: Order Comment: Speci men Type: BLOOD SPECIMENOrdering Facility: [facility] Address: [address] [place] [address] Performed By: #### 1 23-9, ####[facility] LABCLIA [id number] [place] [address] [place] Creatinine and Glomerular filtration rate.predicted panel (S/P/Bld) 44 mL/min/1.73m??? Low >=60 [facility] Comment on above: Order Comment: Speci alex Type: BLOOD SPECIMENOrdering Facility: [facility] Address: [address] [place] [address] Result Comment: Mary Kay mated Glomerular Filtration Rate (eGFR) is calculated using the 2020 CKD-EPI creatinine equation. This equation utilizes serum creatinine, sex, and age as parameters. The creatinine assay has traceable calibration to isotope dilution-mass spectrometry. Refer to KDIGO guidelines for clinical interpretation. In patients with unstable renal function, e.g. those with acute kidney injury, the eGFR may not accurately reflect actual GFR. Performed By: #### 1 23-9, ####[facility] LABCLIA [id number] [place] [address] [place] Glucose [Mass/Vol] 145 mg/dL High 74-99 [facility] Comment on above: Order Comment: Speci men Type: BLOOD SPECIMENOrdering Facility: [facility] Address: [address] [place] [address] Result Comment: The [place] [employer] (ADA) provides guidance for cutoff values for fasting glucose and random glucose. The ADA defines fasting as no caloric intake for at least 8 hours. Fasting plasma glucose results between 100 to 125 mg/dL indicate increased risk for diabetes (prediabetes).Fasting plasma glucose results greater than or equal to 126 mg/dL meet the criteria for diagnosis of diabetes. In the absence of unequivocal hyperglycemia, results should be confirmed by repeat testing. In a patient with classic symptoms of hyperglycemia or hyperglycemic crisis, random plasma glucose results greater than or equal to 200 mg/dL meet the criteria for diagnosis of diabetes.Reference: Standards of Medical Care in Diabetes 2016, [place] [employer]. Diabetes Care. 2016.39(Suppl 1). Performed By: #### 1 9123-9, ####[facility] LABCLIA [id number] [place] [address] [place] Potassium [Moles/Vol] 4.6 mmol/L Normal 3.7-5.1 [facility] Comment on above: Order Comment: Speci men Type: BLOOD SPECIMENOrdering Facility: [facility] Address: [address] [place] [address] Performed By: #### 1 9123-9, ####[facility] LABIA [id number] [place] [address] [place] Protein [Mass/Vol] 6.9 g/dL Normal 6.3-8.0 [facility] Comment on above: Order Comment: Speci men Type: BLOOD SPECIMENOrdering Facility: [facility] Address: [address] [place] [address] Performed By: #### 1 9123-9, ####[facility] LABCLIA [id number] [place] [address] [place] Sodium [Moles/Vol] 136 mmol/L Normal 136-144 [facility] Comment on above: Order Comment: Speci men Type: BLOOD SPECIMENOrdering Facility: [facility] Address: [address] [place] [address] Performed By: #### 1 9123-9, 00199-7 ####[facility] LABCLIA [id number] [place] [address] [place] Urea nitrogen [Mass/Vol] 22 mg/dL Normal 9-24 [facility] Comment on above: Order Comment: Speci men Type: BLOOD SPECIMENOrdering Facility: [facility] Address: [address] [place] [address] Performed By: #### 1 9123-9, 52688-7 ####[facility] LABIA [id number] [place] [address] [place] Magnesium SerPl-mCncon 11-03 Magnesium [Mass/Vol] 1.9 mg/dL Normal 1.7-2.3 [facility] Comment on above: Order Comment: Speci men Type: BLOOD SPECIMENOrdering Facility: [facility] Address: [address] [place] [address] Performed By: #### 1 9123-9, 54203-0 ####[facility] LABIA [id number] [place] [address] [place] CBC panel Auto (Bld)on 11-02 Erythrocyte distribution width (RBC) [Ratio] 13.0 % Normal 11.5-15.0 [facility] Comment on above: Order Comment: Speci men Type: BLOOD SPECIMENOrdering Facility: [facility] Address: [address] [place] [address] Performed By: #### 5 8410-2 ####[facility] LABIA [id number] [place] [address] [place] Hematocrit (Bld) [Volume fraction] 23.8 % Low 39.0-51.0 [facility] Comment on above: Order Comment: Speci men Type: BLOOD SPECIMENOrdering Facility: [facility] Address: [address] [place] [address] Performed By: #### 5 8410-2 ####[facility] LABIA [id number] [place] [address] [place] Hemoglobin (Bld) [Mass/Vol] 7.5 g/dL Low 13.0-17.0 [facility] Comment on above: Order Comment: Speci men Type: BLOOD SPECIMENOrdering Facility: [facility] Address: [address] [place] [address] Performed By: #### 5 8410-2 ####[facility] LABIA [id number] [place] [address] [place] MCH (RBC) [Entitic mass] 29.2 pg Normal 26.0-34.0 [facility] Comment on above: Order Comment: Speci men Type: BLOOD SPECIMENOrdering Facility: [facility] Address: [address] [place] [address] Performed By: #### 5 8410-2 ####[facility] LABIA [id number] [place] [address] [place] MCHC (RBC) [Mass/Vol] 31.5 g/dL Normal 30.5-36.0 [facility] Comment on above: Order Comment: Speci men Type: BLOOD SPECIMENOrdering Facility: [facility] Address: [address] [place] [address] Performed By: #### 5 8410-2 ####[facility] LABIA [id number] [place] [address] [place] MCV (RBC) [Entitic vol] 92.6 fL Normal 80.0-100.0 [facility] Comment on above: Order Comment: Speci men Type: BLOOD SPECIMENOrdering Facility: [facility] Address: [address] [place] [address] Performed By: #### 5 8410-2 ####[facility] LABIA [id number] [place] [address] [place] Nucleated RBC (Bld) [#/Vol] 10*3/uL Normal <0.01 [facility] Comment on above: Order Comment: Speci men Type: BLOOD SPECIMENOrdering Facility: [facility] Address: [address] [place] [address] Performed By: #### 5 8410-2 ####[facility] LABCLIA [id number] [place] [address] [place] Platelet mean volume (Bld) [Entitic vol] 10.6 fL Normal 9.0-12.7 [facility] Comment on above: Order Comment: Speci men Type: BLOOD SPECIMENOrdering Facility: [facility] Address: [address] [place] [address] Performed By: #### 5 8410-2 ####[facility] LABCLIA [id number] [place] [address] [place] Platelets (Bld) [#/Vol] 211 10*3/uL Normal 150-400 [facility] Comment on above: Order Comment: Speci men Type: BLOOD SPECIMENOrdering Facility: [facility] Address: [address] [place] [address] Performed By: #### 5 8410-2 ####[facility] LABCLIA [id number] [place] [address] [place] RBC (Bld) [#/Vol] 2.57 10*6/uL Low 4.20-6.00 [facility] Comment on above: Order Comment: Speci men Type: BLOOD SPECIMENOrdering Facility: [facility] Address: [address] [place] [address] Performed By: #### 5 8410-2 ####[facility] LABCLIA [id number] [place] [address] [place] WBC (Bld) [#/Vol] 10.06 10*3/uL Normal 3.70-11.00 [facility] Comment on above: Order Comment: Speci men Type: BLOOD SPECIMENOrdering Facility: [facility] Address: [address] [place] [id number] Performed By: #### 5 8410-2 ####[facility] LABCLIA [id number] [address] [address] [place] Comprehensive metabolic 2000 panelon 11-02-2024 Albumin [Mass/Vol] 4.0 g/dL Normal 3.9-4.9 [facility] Comment on above: Order Comment: Speci men Type: BLOOD SPECIMENOrdering Facility: [facility] Address: [address] [place], [place] [address] Performed By: #### 2 4323-8, ####[facility] LABCLIA [id number] [place] [address] [place] ALP [Catalytic activity/Vol] 58 U/L Normal 38-113 [facility] Comment on above: Order Comment: Speci men Type: BLOOD SPECIMENOrdering Facility: [facility] Address: [address] [place], [place] [address] Performed By: #### 2 4323-8, ####[facility] LABCLIA [id number] [address] [place] ALT [Catalytic activity/Vol] 17 U/L Normal 10-54 [facility] Comment on above: Order Comment: Speci men Type: BLOOD SPECIMENOrdering Facility: [facility] Address: [address] [place] [address] Performed By: #### 2 4323-8, ####[facility] LABCLIA [id number] [place] [id number] [place] Anion gap [Moles/Vol] 14 mmol/L Normal 8-15 [facility] Comment on above: Order Comment: Speci men Type: BLOOD SPECIMENOrdering Facility: [facility] Address: [address] [place], [place] [address] Performed By: #### 2 4323-8, ####[facility] LABCLIA [id number] [place] [id number] [place] AST [Catalytic activity/Vol] 13 U/L Low 14-40 [facility] Comment on above: Order Comment: Speci men Type: BLOOD SPECIMENOrdering Facility: [facility] Address: [address] [place] [address] Performed By: #### 2 432-8, ####[facility] LABCLIA [id number] [place] [address] [place] Bilirubin [Mass/Vol] 0.3 mg/dL Normal 0.2-1.3 [facility] Comment on above: Order Comment: Speci men Type: BLOOD SPECIMENOrdering Facility: [facility] Address: [address] [place] [address] Performed By: #### 2 432-8, ####[facility] LABCLIA [id number] [place] [address] [place] Calcium [Mass/Vol] 9.6 mg/dL Normal 8.5-10.2 [facility] Comment on above: Order Comment: Speci men Type: BLOOD SPECIMENOrdering Facility: [facility] Address: [address] [place] [address] Performed By: #### 2 432-8, ####[facility] LABCLIA [id number] [place] [id number] [place] Chloride [Moles/Vol] 103 mmol/L Normal 98-107 [facility] Comment on above: Order Comment: Speci men Type: BLOOD SPECIMENOrdering Facility: [facility] Address: [address] [place], [place] [address] Performed By: #### 2 4323-8, ####[facility] LABCLIA [id number] [place] [id number] [place] CO2 [Moles/Vol] 20 mmol/L Low 22-30 [facility] Comment on above: Order Comment: Speci men Type: BLOOD SPECIMENOrdering Facility: [facility] Address: [address] [place] [address] Performed By: #### 2 4323-8, ####[facility] LABCLIA [id number] [place] [address] [place] Creatinine [Mass/Vol] 1.80 mg/dL High 0.73-1.22 [facility] Comment on above: Order Comment: Speci men Type: BLOOD SPECIMENOrdering Facility: [facility] Address: [address] [place] [address] Performed By: #### 2 43238, ####[facility] LABCLIA [id number] [place] [address] [place] Creatinine and Glomerular filtration rate.predicted panel (S/P/Bld) 39 mL/min/1.73m??? Low >=60 [facility] Comment on above: Order Comment: Speci men Type: BLOOD SPECIMENOrdering Facility: [facility] Address: [address] [place] [address] Result Comment: Mary Kay mated Glomerular Filtration Rate (eGFR) is calculated using the 2020 CKD-EPI creatinine equation. This equation utilizes serum creatinine, sex, and age as parameters. The creatinine assay has traceable calibration to isotope dilution-mass spectrometry. Refer to KDIGO guidelines for clinical interpretation. In patients with unstable renal function, e.g. those with acute kidney injury, the eGFR may not accurately reflect actual GFR. Performed By: #### 2 4323-8, ####[facility] LABCLIA [id number] [place] [address] [place] Glucose [Mass/Vol] 132 mg/dL High 74-99 [facility] Comment on above: Order Comment: Speci men Type: BLOOD SPECIMENOrdering Facility: [facility] Address: [address] [place] [id number] Result Comment: The [place] Diabetes Association (ADA) provides guidance for cutoff values for fasting glucose and random glucose. The ADA defines fasting as no caloric intake for at least 8 hours. Fasting plasma glucose results between 100 to 125 mg/dL indicate increased risk for diabetes (prediabetes).Fasting plasma glucose results greater than or equal to 126 mg/dL meet the criteria for diagnosis of diabetes. In the absence of unequivocal hyperglycemia, results should be confirmed by repeat testing. In a patient with classic symptoms of hyperglycemia or hyperglycemic crisis, random plasma glucose results greater than or equal to 200 mg/dL meet the criteria for diagnosis of diabetes.Reference: Standards of Medical Care in Diabetes 2016, [place] [employer]. Diabetes Care. 2016.39(Suppl 1). Performed By: #### 2 432-8, ####[facility] LABIA [id number] [place] [address] [place] Potassium [Moles/Vol] 4.5 mmol/L Normal 3.7-5.1 [facility] Comment on above: Order Comment: Speci men Type: BLOOD SPECIMENOrdering Facility: [facility] Address: [address] [place] [id number] Performed By: #### 2 4323-04, ####[facility] LABIA [id number] [place] [address] [place] Protein [Mass/Vol] 7.0 g/dL Normal 6.3-8.0 [facility] Comment on above: Order Comment: Speci men Type: BLOOD SPECIMENOrdering Facility: [facility] Address: [address] [place] [address] Performed By: #### 2 3, ####[facility] LABCLIA [id number] [place] [address] [place] Sodium [Moles/Vol] 137 mmol/L Normal 136-144 [facility] Comment on above: Order Comment: Speci men Type: BLOOD SPECIMENOrdering Facility: [facility] Address: [address] [place] [address] Performed By: #### 2 4323-8, ####[facility] LABCLIA [id number] [place] [address] [place] Urea nitrogen [Mass/Vol] 24 mg/dL Normal 9-24 [facility] Comment on above: Order Comment: Speci men Type: BLOOD SPECIMENOrdering Facility: [facility] Address: [address] [place] [address] Performed By: #### 2 4323-8, ####[facility] LABCLIA [id number] [place] [address] [place] Magnesium SerPl-mCncon 11-02 Magnesium [Mass/Vol] 1.9 mg/dL Normal 1.7-2.3 [facility] Comment on above: Order Comment: Speci men Type: BLOOD SPECIMENOrdering Facility: [facility] Address: [address] [place] [address] Performed By: #### 2 4323-8, ####[facility] LABCLIA [id number] [place] [address] [place] NUTRITIONon 11-02-2024 NUTRITION Normal [facility] US BRACHIAL ARTERY UNL VAS L ABon 11-02-2024 US BRACHIAL ARTERY UNL VAS LAB Normal [facility] CASE MANAGEMon 11-01-2024 CASE MANAGEM Normal [facility] CBC panel Auto (Bld)on 11-01 Erythrocyte distribution width (RBC) [Ratio] 13.1 % Normal 11.5-15.0 [facility] Comment on above: Order Comment: Speci men Type: BLOOD SPECIMENOrdering Facility: [facility] Address: [address] [place] [address] Performed By: #### 5 8410-2 ####[facility] LABCLIA [id number] [place] [address] [place] Hematocrit (Bld) [Volume fraction] 25.1 % Low 39.0-51.0 [facility] Comment on above: Order Comment: Speci men Type: BLOOD SPECIMENOrdering Facility: [facility] Address: [address] [place] [address] Performed By: #### 5 8410-2 ####[facility] LABIA [id number] [place] [address] [place] Hemoglobin (Bld) [Mass/Vol] 8.0 g/dL Low 13.0-17.0 [facility] Comment on above: Order Comment: Speci men Type: BLOOD SPECIMENOrdering Facility: [facility] Address: [address] [place] [address] Performed By: #### 5 8410-2 ####[facility] LABIA [id number] [place] [address] [place] MCH (RBC) [Entitic mass] 30.1 pg Normal 26.0-34.0 [facility] Comment on above: Order Comment: Speci men Type: BLOOD SPECIMENOrdering Facility: [facility] Address: [address] [place] [address] Performed By: #### 5 8410-2 ####[facility] LAB[facility] [id number] [place] [address] [place] MCHC (RBC) [Mass/Vol] 31.9 g/dL Normal 30.5-36.0 [facility] Comment on above: Order Comment: Speci men Type: BLOOD SPECIMENOrdering Facility: [facility] Address: [address] [place] [address] Performed By: #### 5 8410-2 ####[facility] LABIA [id number] [place] [address] [place] MCV (RBC) [Entitic vol] 94.4 fL Normal 80.0-100.0 [facility] Comment on above: Order Comment: Speci men Type: BLOOD SPECIMENOrdering Facility: [facility] Address: [address] [place] [address] Performed By: #### 5 8410-2 ####[facility] LABCLIA [id number] [place] [address] [place] Nucleated RBC (Bld) [#/Vol] 10*3/uL Normal <0.01 [facility] Comment on above: Order Comment: Speci men Type: BLOOD SPECIMENOrdering Facility: [facility] Address: [address] [place] [address] Performed By: #### 5 8410-2 ####[facility] LABCLIA [id number] [place] [address] [place] Platelet mean volume (Bld) [Entitic vol] 11.0 fL Normal 9.0-12.7 [facility] Comment on above: Order Comment: Speci men Type: BLOOD SPECIMENOrdering Facility: [facility] Address: [address] [place] [address] Performed By: #### 5 8410-2 ####[facility] LABCLIA [id number] [place] [address] [place] Platelets (Bld) [#/Vol] 182 10*3/uL Normal 150-400 [facility] Comment on above: Order Comment: Speci men Type: BLOOD SPECIMENOrdering Facility: [facility] Address: [address] [place] [address] Performed By: #### 5 8410-2 ####[facility] LABCLIA [id number] [place] [address] [place] RBC (Bld) [#/Vol] 2.66 10*6/uL Low 4.20-6.00 [facility] Comment on above: Order Comment: Speci men Type: BLOOD SPECIMENOrdering Facility: [facility] Address: [address] [place] [address] Performed By: #### 5 8410-2 ####[facility] LABCLIA [id number] [place] [address] [place] WBC (Bld) [#/Vol] 9.34 10*3/uL Normal 3.70-11.00 [facility] Comment on above: Order Comment: Speci men Type: BLOOD SPECIMENOrdering Facility: [facility] Address: [address] [place] [address] Performed By: #### 5 8410-2 ####[facility] LABCLIA [id number] [place] [address] [place] CONSULT PROGon 11-01-2024 CONSULT PROG Normal [facility] metabolic 2000 panelon 11-01-2024 Albumin [Mass/Vol] 3.8 g/dL Low 3.9-4.9 [facility] Comment on above: Order Comment: Speci men Type: BLOOD SPECIMENOrdering Facility: [facility] Address: [address] [place] [address] Performed By: #### 2 4323-8, ####[facility] LABIA [id number] [place] [address] [place] ALP [Catalytic activity/Vol] 53 U/L Normal 38-113 [facility] Comment on above: Order Comment: Speci men Type: BLOOD SPECIMENOrdering Facility: [facility] Address: [address] [place] [address] Performed By: #### 2 4323-8, ####[facility] LABCLIA [id number] [place] [id number] [place] ALT [Catalytic activity/Vol] 20 U/L Normal 10-54 [facility] Comment on above: Order Comment: Speci men Type: BLOOD SPECIMENOrdering Facility: [facility] Address: [address] [place] [address] Performed By: #### 2 4323-8, ####[facility] LABCLIA [id number] [place] [address] [place] Anion gap [Moles/Vol] 10 mmol/L Normal 8-15 [facility] Comment on above: Order Comment: Speci men Type: BLOOD SPECIMENOrdering Facility: [facility] Address: [address] [place] [address] Performed By: #### 2 4323-8, ####[facility] LABCLIA [id number] [place] [address] [place] AST [Catalytic activity/Vol] 16 U/L Normal 14-40 [facility] Comment on above: Order Comment: Speci men Type: BLOOD SPECIMENOrdering Facility: [facility] Address: [address] [place] [address] Performed By: #### 2 4323-8, ####[facility] LABCLIA [id number] [place] [address] [place] Bilirubin [Mass/Vol] 0.2 mg/dL Normal 0.2-1.3 [facility] Comment on above: Order Comment: Speci men Type: BLOOD SPECIMENOrdering Facility: [facility] Address: [address] [place] [address] Performed By: #### 2 4323-8, ####[facility] LABCLIA [id number] [place] [address] [place] Calcium [Mass/Vol] 9.2 mg/dL Normal 8.5-10.2 [facility] Comment on above: Order Comment: Speci men Type: BLOOD SPECIMENOrdering Facility: [facility] Address: [address] [place] [address] Performed By: #### 2 4323-8, ####[facility] LABCLIA [id number] [place] [address] [place] Chloride [Moles/Vol] 107 mmol/L Normal 98-107 [facility] Comment on above: Order Comment: Speci men Type: BLOOD SPECIMENOrdering Facility: [facility] Address: [address] [place] [address] Performed By: #### 2 4323-8, ####[facility] LABCLIA [id number] [place] [id number] [place] CO2 [Moles/Vol] 22 mmol/L Normal 22-30 [facility] Comment on above: Order Comment: Speci men Type: BLOOD SPECIMENOrdering Facility: [facility] Address: [address] [place] [address] Performed By: #### 2 4323-8, ####[facility] LABCLIA [id number] [place] [address] [place] Creatinine [Mass/Vol] 1.86 mg/dL High 0.73-1.22 [facility] Comment on above: Order Comment: Speci men Type: BLOOD SPECIMENOrdering Facility: [facility] Address: [address] [place] [address] Performed By: #### 2 4323-8, ####[facility] LABCLIA [id number] [address] [place] Creatinine and Glomerular filtration rate.predicted panel (S/P/Bld) 38 mL/min/1.73m??? Low >=60 [facility] Comment on above: Order Comment: Speci men Type: BLOOD SPECIMENOrdering Facility: [facility] Address: [address] [place] [address] Result Comment: Mary Kay mated Glomerular Filtration Rate (eGFR) is calculated using the 2020 CKD-EPI creatinine equation. This equation utilizes serum creatinine, sex, and age as parameters. The creatinine assay has traceable calibration to isotope dilution-mass spectrometry. Refer to KDIGO guidelines for clinical interpretation. In patients with unstable renal function, e.g. those with acute kidney injury, the eGFR may not accurately reflect actual GFR. Performed By: #### 2 4323-8, ####[facility] LABCLIA [id number] [address] [address] [place] Glucose [Mass/Vol] 144 mg/dL High 74-99 [facility] Comment on above: Order Comment: Speci men Type: BLOOD SPECIMENOrdering Facility: [facility] Address: [address] [place] [address] Result Comment: The [place] [employer] (ADA) provides guidance for cutoff values for fasting glucose and random glucose. The ADA defines fasting as no caloric intake for at least 8 hours. Fasting plasma glucose results between 100 to 125 mg/dL indicate increased risk for diabetes (prediabetes).Fasting plasma glucose results greater than or equal to 126 mg/dL meet the criteria for diagnosis of diabetes. In the absence of unequivocal hyperglycemia, results should be confirmed by repeat testing. In a patient with classic symptoms of hyperglycemia or hyperglycemic crisis, random plasma glucose results greater than or equal to 200 mg/dL meet the criteria for diagnosis of diabetes.Reference: Standards of Medical Care in Diabetes 2016, [place] [employer]. Diabetes Care. 2016.39(Suppl 1). Performed By: #### 2 4323-8, ####[facility] LABIA [id number] [place] [address] [place] Potassium [Moles/Vol] 5.2 mmol/L High 3.7-5.1 [facility] Comment on above: Order Comment: Speci men Type: BLOOD SPECIMENOrdering Facility: [facility] Address: [address] [place], [place] [address] Performed By: #### 2 4323-8, ####[facility] LABIA [id number] [place] [id number] [place] Protein [Mass/Vol] 6.7 g/dL Normal 6.3-8.0 [facility] Comment on above: Order Comment: Speci men Type: BLOOD SPECIMENOrdering Facility: [facility] Address: [address] [place], [place] [address] Performed By: #### 2 4323-8, ####[facility] LABCLIA [id number] [place] [address] [place] Sodium [Moles/Vol] 139 mmol/L Normal 136-144 [facility] Comment on above: Order Comment: Speci men Type: BLOOD SPECIMENOrdering Facility: [facility] Address: [address] [place] [address] Performed By: #### 2 4323-8, 67176-6 ####[facility] LABCLIA [id number] [place] [address] [place] Urea nitrogen [Mass/Vol] 23 mg/dL Normal 9-24 [facility] Comment on above: Order Comment: Speci men Type: BLOOD SPECIMENOrdering Facility: [facility] Address: [address] [place] [address] Performed By: #### 2 4323-8, 48364-9 ####[facility] LABCLIA [id number] [place] [address] [place] Magnesium SerPl-mCncon 11-01 Magnesium [Mass/Vol] 1.9 mg/dL Normal 1.7-2.3 [facility] Comment on above: Order Comment: Speci men Type: BLOOD SPECIMENOrdering Facility: [facility] Address: [address] [place] [address] Performed By: #### 2 4323-8, 84247-9 ####[facility] LABCLIA [id number] [place] [address] [place] CBC W Auto Differential pane l (Bld)on 10-31-2024 Basophils (Bld) [#/Vol] 0.05 10*3/uL Normal <0.11 [facility] Comment on above: Order Comment: Speci men Type: BLOOD SPECIMENOrdering Facility: [facility] Address: [address] [place] [address] Performed By: #### 5 7021-8 ####[facility] LABCLIA [id number] [place] [address] [place] Basophils/100 WBC (Bld) 0.5 % Normal [facility] Comment on above: Order Comment: Speci men Type: BLOOD SPECIMENOrdering Facility: [facility] Address: [address] [place] [address] Performed By: #### 5 7021-8 ####[facility] LABCLIA [id number] [place] [address] [place] Differential cell count method Nom (Bld) Auto Normal [facility] Comment on above: Order Comment: Speci men Type: BLOOD SPECIMENOrdering Facility: [facility] Address: [address] [place] [address] Performed By: #### 5 7021-8 ####[facility] LABCLIA [id number] [place] [address] [place] Eosinophils (Bld) [#/Vol] 0.24 10*3/uL Normal <0.46 [facility] Comment on above: Order Comment: Speci men Type: BLOOD SPECIMENOrdering Facility: [facility] Address: [address] [place] [address] Performed By: #### 5 7021-8 ####[facility] LABCLIA [id number] [place] [address] [place] Eosinophils/100 WBC (Bld) 2.2 % Normal [facility] Comment on above: Order Comment: Speci men Type: BLOOD SPECIMENOrdering Facility: [facility] Address: [address] [place] [address] Performed By: #### 5 7021-8 ####[facility] LABCLIA [id number] [place] [address] [place] Erythrocyte distribution width (RBC) [Ratio] 13.1 % Normal 11.5-15.0 [facility] Comment on above: Order Comment: Speci men Type: BLOOD SPECIMENOrdering Facility: [facility] Address: [address] [place] [address] Performed By: #### 5 7021-8 ####[facility] LABCLIA [id number] [place] [address] [place] Hematocrit (Bld) [Volume fraction] 23.7 % Low 39.0-51.0 [facility] Comment on above: Order Comment: Speci men Type: BLOOD SPECIMENOrdering Facility: [facility] Address: [address] [place] [address] Performed By: #### 5 7021-8 ####[facility] LABIA [id number] [place] [address] [place] Hemoglobin (Bld) [Mass/Vol] 7.5 g/dL Low 13.0-17.0 [facility] Comment on above: Order Comment: Speci men Type: BLOOD SPECIMENOrdering Facility: [facility] Address: [address] [place] [address] Performed By: #### 5 7021-8 ####[facility] LABIA [id number] [place] [address] [place] Immature granulocytes (Bld) [#/Vol] 0.05 10*3/uL Normal <0.10 [facility] Comment on above: Order Comment: Speci men Type: BLOOD SPECIMENOrdering Facility: [facility] Address: [address] [place] [address] Performed By: #### 5 7021-8 ####[facility] LABCLIA [id number] [place] [address] [place] Immature granulocytes/100 WBC (Bld) 0.5 % Normal [facility] Comment on above: Order Comment: Speci men Type: BLOOD SPECIMENOrdering Facility: [facility] Address: [address] [place] [address] Performed By: #### 5 7021-8 ####[facility] LABCLIA [id number] [place] [address] [place] Lymphocytes (Bld) [#/Vol] 0.78 10*3/uL Low 1.00-4.00 [facility] Comment on above: Order Comment: Speci men Type: BLOOD SPECIMENOrdering Facility: [facility] Address: [address] [place] [address] Performed By: #### 5 7021-8 ####[facility] LABCLIA [id number] [place] [address] [place] Lymphocytes/100 WBC (Bld) 7.1 % Normal [facility] Comment on above: Order Comment: Speci men Type: BLOOD SPECIMENOrdering Facility: [facility] Address: [address] [place] [address] Performed By: #### 5 7021-8 ####[facility] LABCLIA [id number] [place] [address] [place] MCH (RBC) [Entitic mass] 29.6 pg Normal 26.0-34.0 [facility] Comment on above: Order Comment: Speci men Type: BLOOD SPECIMENOrdering Facility: [facility] Address: [address] [place] [address] Performed By: #### 5 7021-8 ####[facility] LABCLIA [id number] [place] [address] [place] MCHC (RBC) [Mass/Vol] 31.6 g/dL Normal 30.5-36.0 [facility] Comment on above: Order Comment: Speci men Type: BLOOD SPECIMENOrdering Facility: [facility] Address: [address] [place] [address] Performed By: #### 5 7021-8 ####[facility] LABCLIA [id number] [place] [address] [place] MCV (RBC) [Entitic vol] 93.7 fL Normal 80.0-100.0 [facility] Comment on above: Order Comment: Speci men Type: BLOOD SPECIMENOrdering Facility: [facility] Address: [address] [place] [address] Performed By: #### 5 7021-8 ####[facility] LABCLIA [id number] [place] [address] [place] Monocytes (Bld) [#/Vol] 1.03 10*3/uL High <0.87 [facility] Comment on above: Order Comment: Speci men Type: BLOOD SPECIMENOrdering Facility: [facility] Address: [address] [place] [address] Performed By: #### 5 7021-8 ####[facility] LABCLIA [id number] [place] [address] [place] Monocytes/100 WBC (Bld) 9.4 % Normal [facility] Comment on above: Order Comment: Speci men Type: BLOOD SPECIMENOrdering Facility: [facility] Address: [address] [place] [address] Performed By: #### 5 7021-8 ####[facility] LABCLIA [id number] [place] [address] [place] Neutrophils (Bld) [#/Vol] 8.81 10*3/uL High 1.45-7.50 [facility] Comment on above: Order Comment: Speci men Type: BLOOD SPECIMENOrdering Facility: [facility] Address: [address] [place] [address] Performed By: #### 5 7021-8 ####[facility] LABCLIA [id number] [place] [address] [place] Neutrophils/100 WBC (Bld) 80.3 % Normal [facility] Comment on above: Order Comment: Speci men Type: BLOOD SPECIMENOrdering Facility: [facility] Address: [address] [place] [address] Performed By: #### 5 7021-8 ####[facility] LABCLIA [id number] [place] [address] [place] Nucleated RBC (Bld) [#/Vol] 10*3/uL Normal <0.01 [facility] Comment on above: Order Comment: Speci men Type: BLOOD SPECIMENOrdering Facility: [facility] Address: [address] [place] [address] Performed By: #### 5 7021-8 ####[facility] LABCLIA [id number] [place] [address] [place] Nucleated RBC/100 WBC (Bld) [Ratio] 0.0 /100 WBC Normal [facility] Comment on above: Order Comment: Speci men Type: BLOOD SPECIMENOrdering Facility: [facility] Address: [address] [place] [address] Performed By: #### 5 7021-8 ####[facility] LABIA [id number] [place] [address] [place] Platelet mean volume (Bld) [Entitic vol] 10.5 fL Normal 9.0-12.7 [facility] Comment on above: Order Comment: Speci men Type: BLOOD SPECIMENOrdering Facility: [facility] Address: [address] [place] [address] Performed By: #### 5 7021-8 ####[facility] LABIA [id number] [place] [address] [place] Platelets (Bld) [#/Vol] 196 10*3/uL Normal 150-400 [facility] Comment on above: Order Comment: Speci men Type: BLOOD SPECIMENOrdering Facility: [facility] Address: [address] [place] [address] Performed By: #### 5 7021-8 ####[facility] LABCLIA [id number] [place] [address] [place] RBC (Bld) [#/Vol] 2.53 10*6/uL Low 4.20-6.00 [facility] Comment on above: Order Comment: Speci men Type: BLOOD SPECIMENOrdering Facility: [facility] Address: [address] [place] [address] Performed By: #### 5 7021-8 ####[facility] LABCLIA [id number] [place] [address] [place] WBC (Bld) [#/Vol] 10.96 10*3/uL Normal 3.70-11.00 [facility] Comment on above: Order Comment: Speci men Type: BLOOD SPECIMENOrdering Facility: [facility] Address: [address] [place] [address] Performed By: #### 5 7021-8 ####[facility] LABCLIA [id number] [place] [address] [place] CBC panel Auto (Bld)on 10-31 Erythrocyte distribution width (RBC) [Ratio] 13.0 % Normal 11.5-15.0 [facility] Comment on above: Order Comment: Speci men Type: BLOOD SPECIMENOrdering Facility: [facility] Address: [address] [place] [address] Performed By: #### 5 8410-2 ####[facility] LABCLIA [id number] [place] [address] [place] Hematocrit (Bld) [Volume fraction] 24.4 % Low 39.0-51.0 [facility] Comment on above: Order Comment: Speci men Type: BLOOD SPECIMENOrdering Facility: [facility] Address: [address] [place] [address] Performed By: #### 5 8410-2 ####[facility] LABCLIA [id number] [place] [address] [place] Hemoglobin (Bld) [Mass/Vol] 7.9 g/dL Low 13.0-17.0 [facility] Comment on above: Order Comment: Speci men Type: BLOOD SPECIMENOrdering Facility: [facility] Address: [address] [place] [address] Performed By: #### 5 8410-2 ####[facility] LABCLIA [id number] [place] [address] [place] [facility] MCH (RBC) [Entitic mass] 29.7 pg Normal 26.0-34.0 [facility] Comment on above: Order Comment: Speci men Type: BLOOD SPECIMENOrdering Facility: [facility] Address: [address] [place] [address] Performed By: #### 5 8410-2 ####[facility] LABCLIA [id number] [place] [address] [place] MCHC (RBC) [Mass/Vol] 32.4 g/dL Normal 30.5-36.0 [facility] Comment on above: Order Comment: Speci men Type: BLOOD SPECIMENOrdering Facility: [facility] Address: [address] [place] [address] Performed By: #### 5 8410-2 ####[facility] LABIA [id number] [place] [address] [place] MCV (RBC) [Entitic vol] 91.7 fL Normal 80.0-100.0 [facility] Comment on above: Order Comment: Speci men Type: BLOOD SPECIMENOrdering Facility: [facility] Address: [address] [place] [address] Performed By: #### 5 8410-2 ####[facility] LABCLIA [id number] [place] [address] [place] Nucleated RBC (Bld) [#/Vol] 10*3/uL Normal <0.01 [facility] Comment on above: Order Comment: Speci men Type: BLOOD SPECIMENOrdering Facility: [facility] Address: [address] [place] [address] Performed By: #### 5 8410-2 ####[facility] LABCLIA [id number] [place] [address] [place] Platelet mean volume (Bld) [Entitic vol] 10.4 fL Normal 9.0-12.7 [facility] Comment on above: Order Comment: Speci men Type: BLOOD SPECIMENOrdering Facility: [facility] Address: [address] [place] [address] Performed By: #### 5 8410-2 ####[facility] LABCLIA [id number] [place] [address] [place] Platelets (Bld) [#/Vol] 191 10*3/uL Normal 150-400 [facility] Comment on above: Order Comment: Speci men Type: BLOOD SPECIMENOrdering Facility: [facility] Address: [address] [place] [address] Performed By: #### 5 8410-2 ####[facility] LABCLIA [id number] [place] [address] [place] RBC (Bld) [#/Vol] 2.66 10*6/uL Low 4.20-6.00 [facility] Comment on above: Order Comment: Speci men Type: BLOOD SPECIMENOrdering Facility: [facility] Address: [address] [place] [address] Performed By: #### 5 8410-2 ####[facility] LABCLIA [id number] [place] [address] [place] WBC (Bld) [#/Vol] 9.92 10*3/uL Normal 3.70-11.00 [facility] Comment on above: Order Comment: Speci men Type: BLOOD SPECIMENOrdering Facility: [facility] Address: [address] [place] [address] Performed By: #### 5 8410-2 ####[facility] LABCLIA [id number] [place] [id number] [place] CONSULTon 10-31-2024 CONSULT Normal [facility] metabolic 2000 panelon 10-31-2024 Albumin [Mass/Vol] 3.7 g/dL Low 3.9-4.9 [facility] Comment on above: Order Comment: Speci men Type: BLOOD SPECIMENOrdering Facility: [facility] Address: [address] [place] [address] Performed By: #### 2 4323-8, ####[facility] LABCLIA [id number] [place] [address] [place] ALP [Catalytic activity/Vol] 44 U/L Normal 38-113 [facility] Comment on above: Order Comment: Speci men Type: BLOOD SPECIMENOrdering Facility: [facility] Address: [address] [place] [address] Performed By: #### 2 4323-8, ####[facility] LABCLIA [id number] [place] [address] [place] ALT [Catalytic activity/Vol] 14 U/L Normal 10-54 [facility] Comment on above: Order Comment: Speci men Type: BLOOD SPECIMENOrdering Facility: [facility] Address: [address] [place] [address] Performed By: #### 2 4323-8, ####[facility] LABCLIA [id number] [place] [address] [place] Anion gap [Moles/Vol] 8 mmol/L Normal 8-15 [facility] Comment on above: Order Comment: Speci men Type: BLOOD SPECIMENOrdering Facility: [facility] Address: [address] [place], [place] [address] Performed By: #### 2 4323-8, ####[facility] LABCLIA [id number] [place] [id number] [place] AST [Catalytic activity/Vol] 17 U/L Normal 14-40 [facility] Comment on above: Order Comment: Speci men Type: BLOOD SPECIMENOrdering Facility: [facility] Address: [address] [place] [id number] Performed By: #### 2 432-8, ####[facility] LABCLIA [id number] [address] [address] [place] Bilirubin [Mass/Vol] 0.2 mg/dL Normal 0.2-1.3 [facility] Comment on above: Order Comment: Speci men Type: BLOOD SPECIMENOrdering Facility: [facility] Address: [address] [place], [place] [address] Performed By: #### 2 4323-8, ####[facility] LABCLIA [id number] [place] [address] [place] Calcium [Mass/Vol] 8.9 mg/dL Normal 8.5-10.2 [facility] Comment on above: Order Comment: Speci men Type: BLOOD SPECIMENOrdering Facility: [facility] Address: [address] [place], [place] [address] Performed By: #### 2 4323-8, ####[facility] LABCLIA [id number] [place] [address] [place] Chloride [Moles/Vol] 105 mmol/L Normal 98-107 [facility] Comment on above: Order Comment: Speci men Type: BLOOD SPECIMENOrdering Facility: [facility] Address: [address] [id number] Performed By: #### 2 4323-8, ####[facility] LABCLIA [id number] [place] [id number] [place] CO2 [Moles/Vol] 21 mmol/L Low 22-30 [facility] Comment on above: Order Comment: Speci men Type: BLOOD SPECIMENOrdering Facility: [facility] Address: [address] [place], [place] [address] Performed By: #### 2 4328, ####[facility] LABIA [id number] [address] [address] [place] Creatinine [Mass/Vol] 1.71 mg/dL High 0.73-1.22 [facility] Comment on above: Order Comment: Jose Cruz johnson Type: BLOOD SPECIMENOrdering Facility: [facility] Address: [address] [place] [address] Performed By: #### 2 43211-25, ####[facility] LABIA [id number] [place] [address] [place] Creatinine and Glomerular filtration rate.predicted panel (S/P/Bld) 42 mL/min/1.73m??? Low >=60 [facility] Comment on above: Order Comment: [facility] Type: BLOOD SPECIMENOrdering Facility: [facility] Address: [address] [place] [address] Result Comment: Mary Kay mated Glomerular Filtration Rate (eGFR) is calculated using the 2020 CKD-EPI creatinine equation. This equation utilizes serum creatinine, sex, and age as parameters. The creatinine assay has traceable calibration to isotope dilution-mass spectrometry. Refer to KDIGO guidelines for clinical interpretation. In patients with unstable renal function, e.g. those with acute kidney injury, the eGFR may not accurately reflect actual GFR. Performed By: #### 2 4328, ####[facility] LABIA [id number] [place] [id number] [place] Glucose [Mass/Vol] 156 mg/dL High 74-99 [facility] Comment on above: Order Comment: Jose Cruz johnson Type: BLOOD SPECIMENOrdering Facility: [facility] Address: [address] [place] [address] Result Comment: The [place] Diabetes [employer] (ADA) provides guidance for cutoff values for fasting glucose and random glucose. The ADA defines fasting as no caloric intake for at least 8 hours. Fasting plasma glucose results between 100 to 125 mg/dL indicate increased risk for diabetes (prediabetes).Fasting plasma glucose results greater than or equal to 126 mg/dL meet the criteria for diagnosis of diabetes. In the absence of unequivocal hyperglycemia, results should be confirmed by repeat testing. In a patient with classic symptoms of hyperglycemia or hyperglycemic crisis, random plasma glucose results greater than or equal to 200 mg/dL meet the criteria for diagnosis of diabetes.Reference: Standards of Medical Care in Diabetes 2016, [place] [employer]. Diabetes Care. 2016.39(Suppl 1). Performed By: #### 2 4328, ####[facility] LABCLIA [id number] [place] [address] [place] Potassium [Moles/Vol] 4.9 mmol/L Normal 3.7-5.1 [facility] Comment on above: Order Comment: Speci men Type: BLOOD SPECIMENOrdering Facility: [facility] Address: [address] [place] [address] Performed By: #### 2 4323-04, ####[facility] LABCLIA [id number] [place] [address] [place] Protein [Mass/Vol] 6.3 g/dL Normal 6.3-8.0 [facility] Comment on above: Order Comment: Speci men Type: BLOOD SPECIMENOrdering Facility: [facility] Address: [address] [place] [address] Performed By: #### 2 4323-04, ####[facility] LABCLIA [id number] [place] [address] [place] Sodium [Moles/Vol] 134 mmol/L Low 136-144 [facility] Comment on above: Order Comment: Speci men Type: BLOOD SPECIMENOrdering Facility: [facility] Address: [address] [place] [address] Performed By: #### 2 4323-04, ####[facility] LABCLIA [id number] [place] [id number] [place] Urea nitrogen [Mass/Vol] 19 mg/dL Normal 9-24 [facility] Comment on above: Order Comment: Speci men Type: BLOOD SPECIMENOrdering Facility: [facility] Address: [address] [place] [address] Performed By: #### 2 4323-8, ####[facility] LABCLIA [id number] [place] [address] [place] Magnesium SerPl-mCncon 10-31 Magnesium [Mass/Vol] 1.7 mg/dL Normal 1.7-2.3 [facility] Comment on above: Order Comment: Speci men Type: BLOOD SPECIMENOrdering Facility: [facility] Address: [address] [place] [address] Performed By: #### 2 4323-8, ####[facility] LABIA [id number] [place] [address] [place] PTT, ANTICOAGULANT THERAPYon 10-31-2024 aPTT Coag (PPP) [Time] 26.3 s Normal 23.0-32.4 [facility] Comment on above: Order Comment: Speci men Type: BLOOD SPECIMENOrdering Facility: [facility] Address: [address] [place] [address] Performed By: #### P TTAC ####[facility] LABIA [id number] [place] [address] [place] US BRACHIAL ARTERY UNL VAS L ABon 10-31-2024 US BRACHIAL ARTERY UNL VAS LAB Normal [facility] ALLIED HEALTHon 10-30-2024 ALLIED HEALTH Normal [facility] CARD CATH DIAGNOSTICon 10-30 CARD CATH DIAGNOSTIC Normal [facility] CARD CATH INTERVENTon 2024 CARD CATH INTERVENT Normal [facility] CASE MANAGEMon 10-30-2024 CASE MANAGEM Normal [facility] CBC panel Auto (Bld)on 10-30 Erythrocyte distribution width (RBC) [Ratio] 12.8 % Normal 11.5-15.0 [facility] Comment on above: Order Comment: Speci men Type: BLOOD SPECIMENOrdering Facility: [facility] Address: [address] [place] [address] Performed By: #### 5 8410-2 ####[facility] LABIA [id number] [place] [address] [place] Hematocrit (Bld) [Volume fraction] 30.0 % Low 39.0-51.0 [facility] Comment on above: Order Comment: Speci men Type: BLOOD SPECIMENOrdering Facility: [facility] Address: [address] [place] [address] Performed By: #### 5 8410-2 ####[facility] LABIA [id number] [place] [address] [place] Hemoglobin (Bld) [Mass/Vol] 9.5 g/dL Low 13.0-17.0 [facility] Comment on above: Order Comment: Speci men Type: BLOOD SPECIMENOrdering Facility: [facility] Address: [address] [place] [address] Performed By: #### 5 8410-2 ####[facility] LABIA [id number] [place] [address] [place] MCH (RBC) [Entitic mass] 29.4 pg Normal 26.0-34.0 [facility] Comment on above: Order Comment: Speci men Type: BLOOD SPECIMENOrdering Facility: [facility] Address: [address] [place] [address] Performed By: #### 5 8410-2 ####[facility] LABIA [id number] [place] [address] [place] MCHC (RBC) [Mass/Vol] 31.7 g/dL Normal 30.5-36.0 [facility] Comment on above: Order Comment: Speci men Type: BLOOD SPECIMENOrdering Facility: [facility] Address: [address] [place] [address] Performed By: #### 5 8410-2 ####[facility] LABCLIA [id number] [place] [address] [place] MCV (RBC) [Entitic vol] 92.9 fL Normal 80.0-100.0 [facility] Comment on above: Order Comment: Speci men Type: BLOOD SPECIMENOrdering Facility: [facility] Address: [address] [place] [address] Performed By: #### 5 8410-2 ####[facility] LABIA [id number] [place] [address] [place] Nucleated RBC (Bld) [#/Vol] 10*3/uL Normal <0.01 [facility] Comment on above: Order Comment: Speci men Type: BLOOD SPECIMENOrdering Facility: [facility] Address: [address] [place] [address] Performed By: #### 5 8410-2 ####[facility] LABIA [id number] [place] [address] [place] Platelet mean volume (Bld) [Entitic vol] 10.7 fL Normal 9.0-12.7 [facility] Comment on above: Order Comment: Speci men Type: BLOOD SPECIMENOrdering Facility: [facility] Address: [address] [place] [address] Performed By: #### 5 8410-2 ####[facility] LABIA [id number] [place] [address] [place] Platelets (Bld) [#/Vol] 241 10*3/uL Normal 150-400 [facility] Comment on above: Order Comment: Speci men Type: BLOOD SPECIMENOrdering Facility: [facility] Address: [address] [place] [address] Performed By: #### 5 8410-2 ####[facility] LABCLIA [id number] [place] [address] [place] RBC (Bld) [#/Vol] 3.23 10*6/uL Low 4.20-6.00 [facility] Comment on above: Order Comment: Speci men Type: BLOOD SPECIMENOrdering Facility: [facility] Address: [address] [place] [address] Performed By: #### 5 8410-2 ####[facility] LABCLIA [id number] [place] [address] [place] WBC (Bld) [#/Vol] 9.22 10*3/uL Normal 3.70-11.00 [facility] Comment on above: Order Comment: Speci men Type: BLOOD SPECIMENOrdering Facility: [facility] Address: [address] [place] [address] Performed By: #### 5 8410-2 ####[facility] LABCLIA [id number] [place] [address] [place] Comprehensive metabolic 2000 panelon 10-30-2024 Albumin [Mass/Vol] 3.9 g/dL Normal 3.9-4.9 [facility] Comment on above: Order Comment: Speci men Type: BLOOD SPECIMENOrdering Facility: [facility] Address: [address] [place] [address] Performed By: #### 2 4323-8, ####[facility] LABCLIA [id number] [place] [address] [place] ALP [Catalytic activity/Vol] 54 U/L Normal 38-113 [facility] Comment on above: Order Comment: Speci men Type: BLOOD SPECIMENOrdering Facility: [facility] Address: [address] [place] [address] Performed By: #### 2 4323-8, ####[facility] LABCLIA [id number] [place] [address] [place] ALT [Catalytic activity/Vol] 15 U/L Normal 10-54 [facility] Comment on above: Order Comment: Speci men Type: BLOOD SPECIMENOrdering Facility: [facility] Address: [address] [place] [address] Performed By: #### 2 4323-8, ####[facility] LABCLIA [id number] [address] [address] [place] Anion gap [Moles/Vol] 13 mmol/L Normal 8-15 [facility] Comment on above: Order Comment: Speci men Type: BLOOD SPECIMENOrdering Facility: [facility] Address: [address] [place], [place] [address] Performed By: #### 2 432-8, ####[facility] LABCLIA [id number] [place] [address] [place] AST [Catalytic activity/Vol] 16 U/L Normal 14-40 [facility] Comment on above: Order Comment: Speci men Type: BLOOD SPECIMENOrdering Facility: [facility] Address: [address] [place], [place] [address] Performed By: #### 2 432-8, ####[facility] LABCLIA [id number] [place] [address] [place] Bilirubin [Mass/Vol] mg/dL Low 0.2-1.3 [facility] Comment on above: Order Comment: Speci men Type: BLOOD SPECIMENOrdering Facility: [facility] Address: [address] [place] [address] Performed By: #### 2 4323-8, ####[facility] LABCLIA [id number] [place] [id number] [place] Calcium [Mass/Vol] 8.9 mg/dL Normal 8.5-10.2 [facility] Comment on above: Order Comment: Speci men Type: BLOOD SPECIMENOrdering Facility: [facility] Address: [address] [place] [address] Performed By: #### 2 4328, ####[facility] LABCLIA [id number] [place] [id number] [place] Chloride [Moles/Vol] 104 mmol/L Normal 98-107 [facility] Comment on above: Order Comment: Speci men Type: BLOOD SPECIMENOrdering Facility: [facility] Address: [address] [place] [address] Performed By: #### 2 4328, ####[facility] LABCLIA [id number] [place] [address] [place] CO2 [Moles/Vol] 19 mmol/L Low 22-30 [facility] Comment on above: Order Comment: Speci men Type: BLOOD SPECIMENOrdering Facility: [facility] Address: [address] [place] [address] Performed By: #### 2 4328, ####[facility] LABCLIA [id number] [place] [address] [place] Creatinine [Mass/Vol] 1.50 mg/dL High 0.73-1.22 [facility] Comment on above: Order Comment: Speci men Type: BLOOD SPECIMENOrdering Facility: [facility] Address: [address] [place] [address] Performed By: #### 2 4323-8, ####[facility] LABIA [id number] [place] [address] [place] Creatinine and Glomerular filtration rate.predicted panel (S/P/Bld) 49 mL/min/1.73m??? Low >=60 [facility] Comment on above: Order Comment: Speci men Type: BLOOD SPECIMENOrdering Facility: [facility] Address: [address] [place] [address] Result Comment: Mary Kay mated Glomerular Filtration Rate (eGFR) is calculated using the 2020 CKD-EPI creatinine equation. This equation utilizes serum creatinine, sex, and age as parameters. The creatinine assay has traceable calibration to isotope dilution-mass spectrometry. Refer to KDIGO guidelines for clinical interpretation. In patients with unstable renal function, e.g. those with acute kidney injury, the eGFR may not accurately reflect actual GFR. Performed By: #### 2 4323-04, ####[facility] LABCLIA [id number] [address] [address] [place] Glucose [Mass/Vol] 162 mg/dL High 74-99 [facility] Comment on above: Order Comment: Jose Cruz johnson Type: BLOOD SPECIMENOrdering Facility: [facility] Address: [address] [place] [address] Result Comment: The [place] Diabetes [employer] (ADA) provides guidance for cutoff values for fasting glucose and random glucose. The ADA defines fasting as no caloric intake for at least 8 hours. Fasting plasma glucose results between 100 to 125 mg/dL indicate increased risk for diabetes (prediabetes).Fasting plasma glucose results greater than or equal to 126 mg/dL meet the criteria for diagnosis of diabetes. In the absence of unequivocal hyperglycemia, results should be confirmed by repeat testing. In a patient with classic symptoms of hyperglycemia or hyperglycemic crisis, random plasma glucose results greater than or equal to 200 mg/dL meet the criteria for diagnosis of diabetes.Reference: Standards of Medical Care in Diabetes 2016, [place] [employer]. Diabetes Care. 2016.39(Suppl 1). Performed By: #### 2 4323-04, ####[facility] LABCLIA [id number] [address] [address] [place] Potassium [Moles/Vol] 4.5 mmol/L Normal 3.7-5.1 [facility] Comment on above: Order Comment: Jose Cruz johnson Type: BLOOD SPECIMENOrdering Facility: [facility] Address: [address] [place] [address] Performed By: #### 2 4323-04, ####[facility] LABCLIA [id number] [address] [address] [place] Protein [Mass/Vol] 6.5 g/dL Normal 6.3-8.0 [facility] Comment on above: Order Comment: Speci men Type: BLOOD SPECIMENOrdering Facility: [facility] Address: [address] [place], [place] [address] Performed By: #### 2 4323-8, ####[facility] LABCLIA [id number] [address] [address] [place] Sodium [Moles/Vol] 136 mmol/L Normal 136-144 [facility] Comment on above: Order Comment: Speci men Type: BLOOD SPECIMENOrdering Facility: [facility] Address: [address] [place] [address] Performed By: #### 2 4323-8, ####[facility] LABCLIA [id number] [place] [address] [place] Urea nitrogen [Mass/Vol] 19 mg/dL Normal 9-24 [facility] Comment on above: Order Comment: Speci men Type: BLOOD SPECIMENOrdering Facility: [facility] Address: [address] [place] [address] Performed By: #### 2 4323-8, ####[facility] LABCLIA [id number] [place] [address] [place] ECG COMPLETEon 10-30-2024 ECG COMPLETE Normal [facility] ECG COMPLETE Normal [facility] Magnesium SerPl-mCncon 10-30 Magnesium [Mass/Vol] 1.9 mg/dL Normal 1.7-2.3 [facility] Comment on above: Order Comment: Speci men Type: BLOOD SPECIMENOrdering Facility: [facility] Address: [address] [place], [place] [address] Performed By: #### 2 4323-8, ####[facility] LABCLIA [id number] [address] [address] [place] NURSING PROGon 10-30-2024 NURSING PROG Normal [facility] PT EDon 10-30-2024 PT ED Normal [facility] PT ED Normal [facility] PTT, ANTICOAGULANT THERAPYon 10-30-2024 aPTT Coag (PPP) [Time] 77.1 s High 23.0-32.4 [facility] Comment on above: Order Comment: Speci men Type: BLOOD SPECIMENOrdering Facility: [facility] Address: [address] [place] [address] Performed By: #### P TTAC ####[facility] LABIA [id number] [place] [address] [place] CBC panel Auto (Bld)on 10-29 Erythrocyte distribution width (RBC) [Ratio] 12.9 % Normal 11.5-15.0 [facility] Comment on above: Order Comment: Speci men Type: BLOOD SPECIMENOrdering Facility: [facility] Address: [address] [place] [address] Performed By: #### 5 8410-2 ####[facility] LAB[facility] [id number] [place] [address] [place] Hematocrit (Bld) [Volume fraction] 29.8 % Low 39.0-51.0 [facility] Comment on above: Order Comment: Speci men Type: BLOOD SPECIMENOrdering Facility: [facility] Address: [address] [place] [address] Performed By: #### 5 8410-2 ####[facility] LABIA [id number] [place] [address] [place] Hemoglobin (Bld) [Mass/Vol] 9.6 g/dL Low 13.0-17.0 [facility] Comment on above: Order Comment: Speci men Type: BLOOD SPECIMENOrdering Facility: [facility] Address: [address] [place] [address] Performed By: #### 5 8410-2 ####[facility] LABIA [id number] [place] [address] [place] MCH (RBC) [Entitic mass] 29.7 pg Normal 26.0-34.0 [facility] Comment on above: Order Comment: Speci men Type: BLOOD SPECIMENOrdering Facility: [facility] Address: [address] [place] [address] Performed By: #### 5 8410-2 ####[facility] LABCLIA [id number] [place] [address] [place] MCHC (RBC) [Mass/Vol] 32.2 g/dL Normal 30.5-36.0 [facility] Comment on above: Order Comment: Speci men Type: BLOOD SPECIMENOrdering Facility: [facility] Address: [address] [place] [address] Performed By: #### 5 8410-2 ####[facility] LABIA [id number] [place] [address] [place] MCV (RBC) [Entitic vol] 92.3 fL Normal 80.0-100.0 [facility] Comment on above: Order Comment: Speci men Type: BLOOD SPECIMENOrdering Facility: [facility] Address: [address] [place] [address] Performed By: #### 5 8410-2 ####[facility] LABIA [id number] [place] [address] [place] Nucleated RBC (Bld) [#/Vol] 10*3/uL Normal <0.01 [facility] Comment on above: Order Comment: Speci men Type: BLOOD SPECIMENOrdering Facility: [facility] Address: [address] [place] [address] Performed By: #### 5 8410-2 ####[facility] LABCLIA [id number] [place] [address] [place] Platelet mean volume (Bld) [Entitic vol] 11.1 fL Normal 9.0-12.7 [facility] Comment on above: Order Comment: Speci men Type: BLOOD SPECIMENOrdering Facility: [facility] Address: [address] [place] [address] Performed By: #### 5 8410-2 ####[facility] LABCLIA [id number] [place] [address] [place] Platelets (Bld) [#/Vol] 228 10*3/uL Normal 150-400 [facility] Comment on above: Order Comment: Speci men Type: BLOOD SPECIMENOrdering Facility: [facility] Address: [address] [place] [address] Performed By: #### 5 8410-2 ####[facility] LABIA [id number] [place] [address] [place] RBC (Bld) [#/Vol] 3.23 10*6/uL Low 4.20-6.00 [facility] Comment on above: Order Comment: Speci men Type: BLOOD SPECIMENOrdering Facility: [facility] Address: [address] [place] [address] Performed By: #### 5 8410-2 ####[facility] LABIA [id number] [place] [address] [place] WBC (Bld) [#/Vol] 8.86 10*3/uL Normal 3.70-11.00 [facility] Comment on above: Order Comment: Speci men Type: BLOOD SPECIMENOrdering Facility: [facility] Address: [address] [place] [address] Performed By: #### 5 8410-2 ####[facility] [facility] LABIA [id number] [place] [address] [place] Comprehensive metabolic 2000 panelon 10-29-2024 Albumin [Mass/Vol] 4.0 g/dL Normal 3.9-4.9 [facility] Comment on above: Order Comment: Speci men Type: BLOOD SPECIMENOrdering Facility: [facility] Address: [address] [place] [address] Performed By: #### 2 4323-8, ####[facility] LABCLIA [id number] [place] [id number] [place] ALP [Catalytic activity/Vol] 47 U/L Normal 38-113 [facility] Comment on above: Order Comment: Speci men Type: BLOOD SPECIMENOrdering Facility: [facility] Address: [address] [place] [address] Performed By: #### 2 432-8, ####[facility] LABCLIA [id number] [place] [address] [place] ALT [Catalytic activity/Vol] 18 U/L Normal 10-54 [facility] Comment on above: Order Comment: Speci men Type: BLOOD SPECIMENOrdering Facility: [facility] Address: [address] [place] [address] Performed By: #### 2 432-8, ####[facility] LABCLIA [id number] [place] [address] [place] Anion gap [Moles/Vol] 11 mmol/L Normal 8-15 [facility] Comment on above: Order Comment: Speci men Type: BLOOD SPECIMENOrdering Facility: [facility] Address: [address] [place] [address] Performed By: #### 2 4323-8, ####[facility] LABCLIA [id number] [place] [id number] [place] AST [Catalytic activity/Vol] 17 U/L Normal 14-40 [facility] Comment on above: Order Comment: Speci men Type: BLOOD SPECIMENOrdering Facility: [facility] Address: [address] [place], [place] [address] Performed By: #### 2 4323-8, 52449-0 ####[facility] LABCLIA [id number] [place] [id number] [place] Bilirubin [Mass/Vol] mg/dL Low 0.2-1.3 [facility] Comment on above: Order Comment: Speci men Type: BLOOD SPECIMENOrdering Facility: [facility] Address: [address] [place] [address] Performed By: #### 2 432-8, ####[facility] LABCLIA [id number] [place] [address] [place] Calcium [Mass/Vol] 9.1 mg/dL Normal 8.5-10.2 [facility] Comment on above: Order Comment: Speci men Type: BLOOD SPECIMENOrdering Facility: [facility] Address: [address] [place] [address] Performed By: #### 2 432-8, ####[facility] LABCLIA [id number] [place] [address] [place] Chloride [Moles/Vol] 103 mmol/L Normal 98-107 [facility] Comment on above: Order Comment: Speci men Type: BLOOD SPECIMENOrdering Facility: [facility] Address: [address] [place] [address] Performed By: #### 2 4323-04, ####[facility] LABCLIA [id number] [place] [address] [place] CO2 [Moles/Vol] 23 mmol/L Normal 22-30 [facility] Comment on above: Order Comment: Speci men Type: BLOOD SPECIMENOrdering Facility: [facility] Address: [address] [place], [place] [address] Performed By: #### 2 4322-8, ####[facility] LABCLIA [id number] [place] [id number] [place] Creatinine [Mass/Vol] 1.44 mg/dL High 0.73-1.22 [facility] Comment on above: Order Comment: Speci men Type: BLOOD SPECIMENOrdering Facility: [facility] Address: [address] [place] [address] Performed By: #### 2 4323-8, ####[facility] LABIA [id number] [place] [address] [place] Creatinine and Glomerular filtration rate.predicted panel (S/P/Bld) 52 mL/min/1.73m??? Low >=60 [facility] Comment on above: Order Comment: Jose Cruz johnson Type: BLOOD SPECIMENOrdering Facility: [facility] Address: [address] [place] [address] Result Comment: Mary Kay mated Glomerular Filtration Rate (eGFR) is calculated using the 2020 CKD-EPI creatinine equation. This equation utilizes serum creatinine, sex, and age as parameters. The creatinine assay has traceable calibration to isotope dilution-mass spectrometry. Refer to KDIGO guidelines for clinical interpretation. In patients with unstable renal function, e.g. those with acute kidney injury, the eGFR may not accurately reflect actual GFR. Performed By: #### 2 4323-8, ####[facility] LABCLIA [id number] [place] [address] [place] Glucose [Mass/Vol] 107 mg/dL High 74-99 [facility] Comment on above: Order Comment: Jose Cruz johnson Type: BLOOD SPECIMENOrdering Facility: [facility] Address: [address] [place] [address] Result Comment: The [place] Diabetes [employer] (ADA) provides guidance for cutoff values for fasting glucose and random glucose. The ADA defines fasting as no caloric intake for at least 8 hours. Fasting plasma glucose results between 100 to 125 mg/dL indicate increased risk for diabetes (prediabetes).Fasting plasma glucose results greater than or equal to 126 mg/dL meet the criteria for diagnosis of diabetes. In the absence of unequivocal hyperglycemia, results should be confirmed by repeat testing. In a patient with classic symptoms of hyperglycemia or hyperglycemic crisis, random plasma glucose results greater than or equal to 200 mg/dL meet the criteria for diagnosis of diabetes.Reference: Standards of Medical Care in Diabetes 2016, [place] [employer]. Diabetes Care. 2016.39(Suppl 1). Performed By: #### 2 432-8, ####[facility] LABCLIA [id number] [place] [address] [place] Potassium [Moles/Vol] 4.4 mmol/L Normal 3.7-5.1 [facility] Comment on above: Order Comment: Speci men Type: BLOOD SPECIMENOrdering Facility: [facility] Address: [address] [place] [address] Performed By: #### 2 8, ####[facility] LABCLIA [id number] [place] [address] [place] Protein [Mass/Vol] 6.9 g/dL Normal 6.3-8.0 [facility] Comment on above: Order Comment: Speci men Type: BLOOD SPECIMENOrdering Facility: [facility] Address: [address] [place] [address] Performed By: #### 2 4323-04, ####[facility] LABCLIA [id number] [place] [address] [place] Sodium [Moles/Vol] 137 mmol/L Normal 136-144 [facility] Comment on above: Order Comment: Speci men Type: BLOOD SPECIMENOrdering Facility: [facility] Address: [address] [place] [address] Performed By: #### 2 4323-04, ####[facility] LABCLIA [id number] [place] [id number] [place] Urea nitrogen [Mass/Vol] 19 mg/dL Normal 9-24 [facility] Comment on above: Order Comment: Speci men Type: BLOOD SPECIMENOrdering Facility: [facility] Address: [address] [place], [place] [address] Performed By: #### 2 4323-8, ####[facility] LABCLIA [id number] [place] [address] [place] Magnesium SerPl-mCncon 10-29 Magnesium [Mass/Vol] 2.1 mg/dL Normal 1.7-2.3 [facility] Comment on above: Order Comment: Speci men Type: BLOOD SPECIMENOrdering Facility: [facility] Address: [address] [place] [address] Performed By: #### 2 4323-8, 49321-4 ####[facility] LABCLIA [id number] [place] [address] [place] PTT, ANTICOAGULANT THERAPYon 10-29-2024 aPTT Coag (PPP) [Time] 47.0 s High 23.0-32.4 [facility] Comment on above: Order Comment: Speci men Type: BLOOD SPECIMENOrdering Facility: [facility] Address: [address] [place] [address] Performed By: #### P TTAC ####[facility] LABCLIA [id number] [place] [address] [place] aPTT Coag (PPP) [Time] 53.5 s High 23.0-32.4 [facility] Comment on above: Order Comment: Speci men Type: BLOOD SPECIMENOrdering Facility: [facility] Address: [address] [place] [address] Performed By: #### P TTAC ####[facility] LABCLIA [id number] [address] [place] aPTT Coag (PPP) [Time] 78.0 s High 23.0-32.4 [facility] Comment on above: Order Comment: Speci men Type: BLOOD SPECIMENOrdering Facility: [facility] Address: [address] [place] [address] Performed By: #### P TTAC ####[facility] LABCLIA [id number] [place] [address] [place] XR CHEST 1V FRONTAL PORTon 0 10-29-2024 XR CHEST 1V FRONTAL PORT Normal [facility] CBC panel Auto (Bld)on 10-28 Erythrocyte distribution width (RBC) [Ratio] 12.7 % Normal 11.5-15.0 [facility] Comment on above: Order Comment: Speci men Type: BLOOD SPECIMENOrdering Facility: [facility] Address: [address] [place] [address] Performed By: #### 5 8410-2 ####[facility] LABIA [id number] [place] [address] [place] Hematocrit (Bld) [Volume fraction] 30.9 % Low 39.0-51.0 [facility] Comment on above: Order Comment: Speci men Type: BLOOD SPECIMENOrdering Facility: [facility] Address: [address] [place] [address] Performed By: #### 5 8410-2 ####[facility] LABIA [id number] [place] [address] [place] Hemoglobin (Bld) [Mass/Vol] 9.9 g/dL Low 13.0-17.0 [facility] Comment on above: Order Comment: Speci men Type: BLOOD SPECIMENOrdering Facility: [facility] Address: [address] [place] [address] Performed By: #### 5 8410-2 ####[facility] LABIA [id number] [place] [address] [place] MCH (RBC) [Entitic mass] 29.7 pg Normal 26.0-34.0 [facility] Comment on above: Order Comment: Speci men Type: BLOOD SPECIMENOrdering Facility: [facility] Address: [address] [place] [address] Performed By: #### 5 8410-2 ####[facility] LABCLIA [id number] [place] [address] [place] MCHC (RBC) [Mass/Vol] 32.0 g/dL Normal 30.5-36.0 [facility] Comment on above: Order Comment: Speci men Type: BLOOD SPECIMENOrdering Facility: [facility] Address: [address] [place] [address] Performed By: #### 5 8410-2 ####[facility] LABIA [id number] [place] [address] [place] MCV (RBC) [Entitic vol] 92.8 fL Normal 80.0-100.0 [facility] Comment on above: Order Comment: Speci men Type: BLOOD SPECIMENOrdering Facility: [facility] Address: [address] [place] [address] Performed By: #### 5 8410-2 ####[facility] LABIA [id number] [place] [address] [place] Nucleated RBC (Bld) [#/Vol] 10*3/uL Normal <0.01 [facility] Comment on above: Order Comment: Speci men Type: BLOOD SPECIMENOrdering Facility: [facility] Address: [address] [place] [address] Performed By: #### 5 8410-2 ####[facility] LABIA [id number] [place] [address] [place] Platelet mean volume (Bld) [Entitic vol] 10.8 fL Normal 9.0-12.7 [facility] Comment on above: Order Comment: Speci men Type: BLOOD SPECIMENOrdering Facility: [facility] Address: [address] [place] [address] Performed By: #### 5 8410-2 ####[facility] LABIA [id number] [place] [address] [place] Platelets (Bld) [#/Vol] 230 10*3/uL Normal 150-400 [facility] Comment on above: Order Comment: Speci men Type: BLOOD SPECIMENOrdering Facility: [facility] Address: [address] [place] [address] Performed By: #### 5 8410-2 ####[facility] LABCLIA [id number] [place] [id number] [place] RBC (Bld) [#/Vol] 3.33 10*6/uL Low 4.20-6.00 [facility] Comment on above: Order Comment: Speci men Type: BLOOD SPECIMENOrdering Facility: [facility] Address: [address] [place] [address] Performed By: #### 5 8410-2 ####[facility] LABIA [id number] [place] [address] [place] WBC (Bld) [#/Vol] 9.46 10*3/uL Normal 3.70-11.00 [facility] Comment on above: Order Comment: Speci men Type: BLOOD SPECIMENOrdering Facility: [facility] Address: [address] [place] [address] Performed By: #### 5 8410-2 ####[facility] LABIA [id number] [place] [address] [place] Comprehensive metabolic 2000 panelon 10-28-2024 Albumin [Mass/Vol] 3.8 g/dL Low 3.9-4.9 [facility] Comment on above: Order Comment: Speci men Type: BLOOD SPECIMENOrdering Facility: [facility] Address: [address] [place] [address] Performed By: #### 1 9123-9, 79390-0 ####[facility] LABIA [id number] [place] [address] [place] ALP [Catalytic activity/Vol] 46 U/L Normal 38-113 [facility] Comment on above: Order Comment: Speci men Type: BLOOD SPECIMENOrdering Facility: [facility] Address: [address] [place] [address] Performed By: #### 1 9123-9, 95840-0 ####[facility] LABCLIA [id number] [place] [id number] [place] ALT [Catalytic activity/Vol] 17 U/L Normal 10-54 [facility] Comment on above: Order Comment: Speci men Type: BLOOD SPECIMENOrdering Facility: [facility] Address: [address] [place] [address] Performed By: #### 1 23-9, ####[facility] LABCLIA [id number] [place] [address] [place] Anion gap [Moles/Vol] 10 mmol/L Normal 8-15 [facility] Comment on above: Order Comment: Speci men Type: BLOOD SPECIMENOrdering Facility: [facility] Address: [address] [place] [address] Performed By: #### 1 9123-9, ####[facility] LABCLIA [id number] [place] [address] [place] AST [Catalytic activity/Vol] 18 U/L Normal 14-40 [facility] Comment on above: Order Comment: Speci men Type: BLOOD SPECIMENOrdering Facility: [facility] Address: [address] [place] [address] Performed By: #### 1 23-9, ####[facility] LABCLIA [id number] [place] [address] [place] Bilirubin [Mass/Vol] mg/dL Low 0.2-1.3 [facility] Comment on above: Order Comment: Speci men Type: BLOOD SPECIMENOrdering Facility: [facility] Address: [address] [place] [address] Performed By: #### 1 9123-9, 33287-6 ####[facility] LABCLIA [id number] [place] [address] [place] Calcium [Mass/Vol] 8.9 mg/dL Normal 8.5-10.2 [facility] Comment on above: Order Comment: Speci men Type: BLOOD SPECIMENOrdering Facility: [facility] Address: [address] [place] [address] Performed By: #### 1 9123-9, ####[facility] LABCLIA [id number] [place] [id number] [place] Chloride [Moles/Vol] 101 mmol/L Normal 98-107 [facility] Comment on above: Order Comment: Speci men Type: BLOOD SPECIMENOrdering Facility: [facility] Address: [address] [place] [address] Performed By: #### 1 9123-9, ####[facility] LABCLIA [id number] [place] [address] [place] CO2 [Moles/Vol] 24 mmol/L Normal 22-30 [facility] Comment on above: Order Comment: Speci men Type: BLOOD SPECIMENOrdering Facility: [facility] Address: [address] [place] [address] Performed By: #### 1 9123-9, 59464-7 ####[facility] LABCLIA [id number] [place] [address] [place] Creatinine [Mass/Vol] 1.77 mg/dL High 0.73-1.22 [facility] Comment on above: Order Comment: Speci men Type: BLOOD SPECIMENOrdering Facility: [facility] Address: [address] [place] [address] Performed By: #### 1 9123-9, ####[facility] LABCLIA [id number] [place] [address] [place] Creatinine and Glomerular filtration rate.predicted panel (S/P/Bld) 40 mL/min/1.73m??? Low >=60 [facility] Comment on above: Order Comment: Speci men Type: BLOOD SPECIMENOrdering Facility: [facility] Address: [address] [place] [address] Result Comment: Mary Kay mated Glomerular Filtration Rate (eGFR) is calculated using the 2020 CKD-EPI creatinine equation. This equation utilizes serum creatinine, sex, and age as parameters. The creatinine assay has traceable calibration to isotope dilution-mass spectrometry. Refer to KDIGO guidelines for clinical interpretation. In patients with unstable renal function, e.g. those with acute kidney injury, the eGFR may not accurately reflect actual GFR. Performed By: #### 1 9123-9, 94218-0 ####[facility] LABIA [id number] [place] [address] [place] Glucose [Mass/Vol] 152 mg/dL High 74-99 [facility] Comment on above: Order Comment: Specmarleny men Type: BLOOD SPECIMENOrdering Facility: [facility] Address: [address] [place] [address] Result Comment: The [place] [employer] (ADA) provides guidance for cutoff values for fasting glucose and random glucose. The ADA defines fasting as no caloric intake for at least 8 hours. Fasting plasma glucose results between 100 to 125 mg/dL indicate increased risk for diabetes (prediabetes).Fasting plasma glucose results greater than or equal to 126 mg/dL meet the criteria for diagnosis of diabetes. In the absence of unequivocal hyperglycemia, results should be confirmed by repeat testing. In a patient with classic symptoms of hyperglycemia or hyperglycemic crisis, random plasma glucose results greater than or equal to 200 mg/dL meet the criteria for diagnosis of diabetes.Reference: Standards of Medical Care in Diabetes 2016, [place] [employer]. Diabetes Care. 2016.39(Suppl 1). Performed By: #### 1 9123-9, 05268-6 ####[facility] [id number] [place] [id number] [place] Potassium [Moles/Vol] 4.4 mmol/L Normal 3.7-5.1 [facility] Comment on above: Order Comment: Speci men Type: BLOOD SPECIMENOrdering Facility: [facility] Address: [address] [place] [address] Performed By: #### 1 9123-9, 45618-8 ####[facility] LABCLIA [id number] [place] [address] [place] Protein [Mass/Vol] 6.5 g/dL Normal 6.3-8.0 [facility] Comment on above: Order Comment: Speci men Type: BLOOD SPECIMENOrdering Facility: [facility] Address: [address] [place] [address] Performed By: #### 1 9123-9, ####[facility] LABCLIA [id number] [place] [address] [place] Sodium [Moles/Vol] 135 mmol/L Low 136-144 [facility] Comment on above: Order Comment: Speci men Type: BLOOD SPECIMENOrdering Facility: [facility] Address: [address] [place] [address] Performed By: #### 1 9123-9, 57202-8 ####[facility] LABCLIA [id number] [place] [address] [place] Urea nitrogen [Mass/Vol] 26 mg/dL High 9-24 [facility] Comment on above: Order Comment: Speci men Type: BLOOD SPECIMENOrdering Facility: [facility] Address: [address] [place] [address] Performed By: #### 1 9123-9, 46590-2 ####[facility] LABCLIA [id number] [place] [address] [place] Magnesium SerPl-mCncon 10-28 Magnesium [Mass/Vol] 2.2 mg/dL Normal 1.7-2.3 [facility] Comment on above: Order Comment: Speci men Type: BLOOD SPECIMENOrdering Facility: [facility] Address: [address] [place] [address] Performed By: #### 1 9123-9, 38975-4 ####[facility] LABCLIA [id number] [place] [address] [place] PTT, ANTICOAGULANT THERAPYon 10-28-2024 aPTT Coag (PPP) [Time] 53.5 s High 23.0-32.4 [facility] Comment on above: Order Comment: Speci men Type: BLOOD SPECIMENOrdering Facility: [facility] Address: [address] [place] [address] Performed By: #### P TTAC ####[facility] LABCLIA [id number] [place] [address] [place] Basic metabolic 2000 panelon 10-27-2024 Anion gap [Moles/Vol] 13 mmol/L Normal 8-15 [facility] Comment on above: Order Comment: Speci men Type: BLOOD SPECIMENOrdering Facility: [facility] Address: [address] [place] [address] Performed By: #### 2 4321-2 ####[facility] LABCLIA [id number] [place] [address] [place] Calcium [Mass/Vol] 9.4 mg/dL Normal 8.5-10.2 [facility] Comment on above: Order Comment: Speci men Type: BLOOD SPECIMENOrdering Facility: [facility] Address: [address] [place] [address] Performed By: #### 2 4321-2 ####[facility] LABCLIA [id number] [place] [address] [place] Chloride [Moles/Vol] 100 mmol/L Normal 98-107 [facility] Comment on above: Order Comment: Speci men Type: BLOOD SPECIMENOrdering Facility: [facility] Address: [address] [place] [address] Performed By: #### 2 4321-2 ####[facility] LABCLIA [id number] [place] [address] [place] CO2 [Moles/Vol] 23 mmol/L Normal 22-30 [facility] Comment on above: Order Comment: Speci men Type: BLOOD SPECIMENOrdering Facility: [facility] Address: [address] [place] [address] Performed By: #### 2 4321-2 ####[facility] LABCLIA [id number] [place] [address] [place] Creatinine [Mass/Vol] 1.63 mg/dL High 0.73-1.22 [facility] Comment on above: Order Comment: Speci men Type: BLOOD SPECIMENOrdering Facility: [facility] Address: [address] [place] [address] Performed By: #### 2 4321-2 ####[facility] LABIA [id number] [place] [address] [place] Creatinine and Glomerular filtration rate.predicted panel (S/P/Bld) 44 mL/min/1.73m??? Low >=60 [facility] Comment on above: Order Comment: Speci men Type: BLOOD SPECIMENOrdering Facility: [facility] Address: [address] [place] [address] Result Comment: Mary Kay mated Glomerular Filtration Rate (eGFR) is calculated using the 2020 CKD-EPI creatinine equation. This equation utilizes serum creatinine, sex, and age as parameters. The creatinine assay has traceable calibration to isotope dilution-mass spectrometry. Refer to KDIGO guidelines for clinical interpretation. In patients with unstable renal function, e.g. those with acute kidney injury, the eGFR may not accurately reflect actual GFR. Performed By: #### 2 4321-2 ####[facility] LABCLIA [id number] [place] [id number] [place] Glucose [Mass/Vol] 127 mg/dL High 74-99 [facility] Comment on above: Order Comment: Speci men Type: BLOOD SPECIMENOrdering Facility: [facility] Address: [address] [place] [address] Result Comment: The [place] [employer] (ADA) provides guidance for cutoff values for fasting glucose and random glucose. The ADA defines fasting as no caloric intake for at least 8 hours. Fasting plasma glucose results between 100 to 125 mg/dL indicate increased risk for diabetes (prediabetes).Fasting plasma glucose results greater than or equal to 126 mg/dL meet the criteria for diagnosis of diabetes. In the absence of unequivocal hyperglycemia, results should be confirmed by repeat testing. In a patient with classic symptoms of hyperglycemia or hyperglycemic crisis, random plasma glucose results greater than or equal to 200 mg/dL meet the criteria for diagnosis of diabetes.Reference: Standards of Medical Care in Diabetes 2016, [place] [employer]. Diabetes Care. 2016.39(Suppl 1). Performed By: #### 2 4321-2 ####[facility] LABCLIA [id number] [place] [address] [place] Potassium [Moles/Vol] 4.9 mmol/L Normal 3.7-5.1 [facility] Comment on above: Order Comment: Jose Cruz johnson Type: BLOOD SPECIMENOrdering Facility: [facility] Address: [address] [place] [address] Performed By: #### 2 4321-2 ####[facility] LABIA [id number] [place] [address] [place] Sodium [Moles/Vol] 136 mmol/L Normal 136-144 [facility] Comment on above: Order Comment: Jose Cruz johnson Type: BLOOD SPECIMENOrdering Facility: [facility] Address: [address] [place] [address] Performed By: #### 2 1-2 ####[facility] LABCLIA [id number] [place] [address] [place] Urea nitrogen [Mass/Vol] 26 mg/dL High 9-24 [facility] Comment on above: Order Comment: Jose Cruz johnson Type: BLOOD SPECIMENOrdering Facility: [facility] Address: [address] [place] [address] Performed By: #### 2 4321-2 ####[facility] LABIA [id number] [place] [address] [place] CBC panel Auto (Bld)on 10-27 Erythrocyte distribution width (RBC) [Ratio] 12.7 % Normal 11.5-15.0 [facility] Comment on above: Order Comment: Speci men Type: BLOOD SPECIMENOrdering Facility: [facility] Address: [address] [place] [address] Performed By: #### 5 8410-2 ####[facility] LABCLIA [id number] [place] [address] [place] Hematocrit (Bld) [Volume fraction] 33.9 % Low 39.0-51.0 [facility] Comment on above: Order Comment: Speci men Type: BLOOD SPECIMENOrdering Facility: [facility] Address: [address] [place] [address] Performed By: #### 5 8410-2 ####[facility] LABIA [id number] [address] [place] Hemoglobin (Bld) [Mass/Vol] 11.1 g/dL Low 13.0-17.0 [facility] Comment on above: Order Comment: Speci men Type: BLOOD SPECIMENOrdering Facility: [facility] Address: [address] [place] [address] Performed By: #### 5 8410-2 ####[facility] LABIA [id number] [place] [address] [place] MCH (RBC) [Entitic mass] 30.0 pg Normal 26.0-34.0 [facility] Comment on above: Order Comment: Speci men Type: BLOOD SPECIMENOrdering Facility: [facility] Address: [address] [place] [address] Performed By: #### 5 8410-2 ####[facility] LABCLIA [id number] [place] [address] [place] MCHC (RBC) [Mass/Vol] 32.7 g/dL Normal 30.5-36.0 [facility] Comment on above: Order Comment: Speci men Type: BLOOD SPECIMENOrdering Facility: [facility] Address: [address] [place] [address] Performed By: #### 5 8410-2 ####[facility] [id number] [place] [address] [place] MCV (RBC) [Entitic vol] 91.6 fL Normal 80.0-100.0 [facility] Comment on above: Order Comment: Speci men Type: BLOOD SPECIMENOrdering Facility: [facility] Address: [address] [place] [address] Performed By: #### 5 8410-2 ####[facility] [id number] [place] [address] [place] Nucleated RBC (Bld) [#/Vol] 10*3/uL Normal <0.01 [facility] Comment on above: Order Comment: Speci men Type: BLOOD SPECIMENOrdering Facility: [facility] Address: [address] [place] [address] Performed By: #### 5 8410-2 ####[facility] [id number] [place] [address] [place] Platelet mean volume (Bld) [Entitic vol] 10.6 fL Normal 9.0-12.7 [facility] Comment on above: Order Comment: Speci men Type: BLOOD SPECIMENOrdering Facility: [facility] Address: [address] [place] [address] Performed By: #### 5 8410-2 ####[facility] LABIA [id number] [place] [address] [place] Platelets (Bld) [#/Vol] 247 10*3/uL Normal 150-400 [facility] Comment on above: Order Comment: Speci men Type: BLOOD SPECIMENOrdering Facility: [facility] Address: [address] [place] [address] Performed By: #### 5 8410-2 ####[facility] LABCLIA [id number] [address] [address] [place] RBC (Bld) [#/Vol] 3.70 10*6/uL Low 4.20-6.00 [facility] Comment on above: Order Comment: Speci men Type: BLOOD SPECIMENOrdering Facility: [facility] Address: [address] [place] [address] Performed By: #### 5 8410-2 ####[facility] LABCLIA [id number] [address] [address] [place] WBC (Bld) [#/Vol] 9.26 10*3/uL Normal 3.70-11.00 [facility] Comment on above: Order Comment: Speci men Type: BLOOD SPECIMENOrdering Facility: [facility] Address: [address] [place] [address] Performed By: #### 5 8410-2 ####[facility] LABIA [id number] [place] [address] [place] Comprehensive metabolic 2000 panelon 10-27-2024 Albumin [Mass/Vol] 4.1 g/dL Normal 3.9-4.9 [facility] Comment on above: Order Comment: Speci men Type: BLOOD SPECIMENOrdering Facility: [facility] Address: [address] [place] [address] Performed By: #### 1 9123-9, 57088-4 ####[facility] LABIA [id number] [place] [address] [place] ALP [Catalytic activity/Vol] 49 U/L Normal 38-113 [facility] Comment on above: Order Comment: Speci men Type: BLOOD SPECIMENOrdering Facility: [facility] Address: [address] [place] [address] Performed By: #### 1 9123-9, 64357-0 ####[facility] LABCLIA [id number] [place] [address] [place] ALT [Catalytic activity/Vol] 28 U/L Normal 10-54 [facility] Comment on above: Order Comment: Speci men Type: BLOOD SPECIMENOrdering Facility: [facility] Address: [address] [place] [address] Performed By: #### 1 9123-9, ####[facility] LABCLIA [id number] [place] [address] [place] Anion gap [Moles/Vol] 17 mmol/L High 8-15 [facility] Comment on above: Order Comment: Speci men Type: BLOOD SPECIMENOrdering Facility: [facility] Address: [address] [place] [address] Performed By: #### 1 9123-9, ####[facility] LABCLIA [id number] [place] [address] [place] AST [Catalytic activity/Vol] 28 U/L Normal 14-40 [facility] Comment on above: Order Comment: Speci men Type: BLOOD SPECIMENOrdering Facility: [facility] Address: [address] [place] [address] Performed By: #### 1 9123-9, ####[facility] LABCLIA [id number] [place] [address] [place] Bilirubin [Mass/Vol] 0.3 mg/dL Normal 0.2-1.3 [facility] Comment on above: Order Comment: Speci men Type: BLOOD SPECIMENOrdering Facility: [facility] Address: [address] [place] [address] Performed By: #### 1 9123-9, ####[facility] LABCLIA [id number] [place] [id number] [place] Calcium [Mass/Vol] 9.7 mg/dL Normal 8.5-10.2 [facility] Comment on above: Order Comment: Speci men Type: BLOOD SPECIMENOrdering Facility: [facility] Address: [address] [place] [address] Performed By: #### 1 9123-9, 58715-6 ####[facility] LABCLIA [id number] [place] [address] [place] Chloride [Moles/Vol] 99 mmol/L Normal 98-107 [facility] Comment on above: Order Comment: Speci men Type: BLOOD SPECIMENOrdering Facility: [facility] Address: [address] [place] [address] Performed By: #### 1 9123-9, 80832-5 ####[facility] LABCLIA [id number] [place] [address] [place] CO2 [Moles/Vol] 15 mmol/L Low 22-30 [facility] Comment on above: Order Comment: Speci men Type: BLOOD SPECIMENOrdering Facility: [facility] Address: [address] [place] [address] Performed By: #### 1 9123-9, 07740-2 ####[facility] LABCLIA [id number] [place] [address] [place] Creatinine [Mass/Vol] 1.49 mg/dL High 0.73-1.22 [facility] Comment on above: Order Comment: Speci men Type: BLOOD SPECIMENOrdering Facility: [facility] Address: [address] [place] [address] Performed By: #### 1 9123-9, 98188-3 ####[facility] LABCLIA [id number] [place] [address] [place] Creatinine and Glomerular filtration rate.predicted panel (S/P/Bld) 50 mL/min/1.73m??? Low >=60 [facility] Comment on above: Order Comment: Speci men Type: BLOOD SPECIMENOrdering Facility: [facility] Address: [address] [place] [address] Result Comment: Mary Kay mated Glomerular Filtration Rate (eGFR) is calculated using the 2020 CKD-EPI creatinine equation. This equation utilizes serum creatinine, sex, and age as parameters. The creatinine assay has traceable calibration to isotope dilution-mass spectrometry. Refer to KDIGO guidelines for clinical interpretation. In patients with unstable renal function, e.g. those with acute kidney injury, the eGFR may not accurately reflect actual GFR. Performed By: #### 1 9123-9, 02810-0 ####[facility] LABCLIA [id number] [place] [address] [place] Glucose [Mass/Vol] 133 mg/dL High 74-99 [facility] Comment on above: Order Comment: Jose Cruz johnson Type: BLOOD SPECIMENOrdering Facility: [facility] Address: [address] [place] [address] Result Comment: The [place] Diabetes [employer] (ADA) provides guidance for cutoff values for fasting glucose and random glucose. The ADA defines fasting as no caloric intake for at least 8 hours. Fasting plasma glucose results between 100 to 125 mg/dL indicate increased risk for diabetes (prediabetes).Fasting plasma glucose results greater than or equal to 126 mg/dL meet the criteria for diagnosis of diabetes. In the absence of unequivocal hyperglycemia, results should be confirmed by repeat testing. In a patient with classic symptoms of hyperglycemia or hyperglycemic crisis, random plasma glucose results greater than or equal to 200 mg/dL meet the criteria for diagnosis of diabetes.Reference: Standards of Medical Care in Diabetes 2016, [place] [employer]. Diabetes Care. 2016.39(Suppl 1). Performed By: #### 1 9123-9, 19979-6 ####[facility] LABCLIA [id number] [place] [address] [place] Potassium [Moles/Vol] 5.8 mmol/L High 3.7-5.1 [facility] Comment on above: Order Comment: Jose Cruz johnson Type: BLOOD SPECIMENOrdering Facility: [facility] Address: [address] [place] [address] Performed By: #### 1 9123-9, 80451-6 ####[facility] LABCLIA [id number] [place] [address] [place] Protein [Mass/Vol] 7.8 g/dL Normal 6.3-8.0 [facility] Comment on above: Order Comment: Speci men Type: BLOOD SPECIMENOrdering Facility: [facility] Address: [address] [place] [address] Performed By: #### 1 9123-9, 37888-0 ####[facility] LABCLIA [id number] [place] [address] [place] Sodium [Moles/Vol] 131 mmol/L Low 136-144 [facility] Comment on above: Order Comment: Speci men Type: BLOOD SPECIMENOrdering Facility: [facility] Address: [address] [place] [address] Performed By: #### 1 9123-9, 11728-0 ####[facility] LABIA [id number] [place] [address] [place] Urea nitrogen [Mass/Vol] 26 mg/dL High 9-24 [facility] Comment on above: Order Comment: Speci men Type: BLOOD SPECIMENOrdering Facility: [facility] Address: [address] [place] [address] Performed By: #### 1 9123-9, 74957-5 ####[facility] LABCLIA [id number] [place] [address] [place] Magnesium SerPl-mCncon 10-27 Magnesium [Mass/Vol] 2.5 mg/dL High 1.7-2.3 [facility] Comment on above: Order Comment: Speci men Type: BLOOD SPECIMENOrdering Facility: [facility] Address: [address] [place] [address] Performed By: #### 1 9123-9, 79296-1 ####[facility] LABIA [id number] [place] [address] [place] PTT, ANTICOAGULANT THERAPYon 10-27-2024 aPTT Coag (PPP) [Time] 52.4 s High 23.0-32.4 [facility] Comment on above: Order Comment: Speci men Type: BLOOD SPECIMENOrdering Facility: [facility] Address: [address] [place] [address] Performed By: #### P TTAC ####[facility] LABCLIA [id number] [place] [address] [place] THERAPY NTon 10-27-2024 THERAPY NT Normal [facility] CASE MANAGEMon 10-26-2024 CASE MANAGEM Normal [facility] CBC panel Auto (Bld)on 10-26 Erythrocyte distribution width (RBC) [Ratio] 12.6 % Normal 11.5-15.0 [facility] Comment on above: Order Comment: Speci men Type: BLOOD SPECIMENOrdering Facility: [facility] Address: [address] [place] [address] Performed By: #### 5 8410-2 ####[facility] LABIA [id number] [place] [address] [place] Hematocrit (Bld) [Volume fraction] 31.6 % Low 39.0-51.0 [facility] Comment on above: Order Comment: Speci men Type: BLOOD SPECIMENOrdering Facility: [facility] Address: [address] [place] [address] Performed By: #### 5 8410-2 ####[facility] LABCLIA [id number] [place] [address] [place] Hemoglobin (Bld) [Mass/Vol] 10.1 g/dL Low 13.0-17.0 [facility] Comment on above: Order Comment: Speci men Type: BLOOD SPECIMENOrdering Facility: [facility] Address: [address] [place] [address] Performed By: #### 5 8410-2 ####[facility] LABIA [id number] [place] [address] [place] MCH (RBC) [Entitic mass] 29.0 pg Normal 26.0-34.0 [facility] Comment on above: Order Comment: Speci men Type: BLOOD SPECIMENOrdering Facility: [facility] Address: [address] [place] [address] Performed By: #### 5 8410-2 ####[facility] LABCLIA [id number] [place] [address] [place] MCHC (RBC) [Mass/Vol] 32.0 g/dL Normal 30.5-36.0 [facility] Comment on above: Order Comment: Speci men Type: BLOOD SPECIMENOrdering Facility: [facility] Address: [address] [place] [address] Performed By: #### 5 8410-2 ####[facility] LABCLIA [id number] [place] [address] [place] MCV (RBC) [Entitic vol] 90.8 fL Normal 80.0-100.0 [facility] Comment on above: Order Comment: Speci men Type: BLOOD SPECIMENOrdering Facility: [facility] Address: [address] [place] [address] Performed By: #### 5 8410-2 ####[facility] LABIA [id number] [place] [address] [place] Nucleated RBC (Bld) [#/Vol] 10*3/uL Normal <0.01 [facility] Comment on above: Order Comment: Speci men Type: BLOOD SPECIMENOrdering Facility: [facility] Address: [address] [place] [address] Performed By: #### 5 8410-2 ####[facility] LABCLIA [id number] [place] [address] [place] Platelet mean volume (Bld) [Entitic vol] 10.8 fL Normal 9.0-12.7 [facility] Comment on above: Order Comment: Speci men Type: BLOOD SPECIMENOrdering Facility: [facility] Address: [address] [place] [address] Performed By: #### 5 8410-2 ####[facility] LABCLIA [id number] [place] [address] [place] Platelets (Bld) [#/Vol] 251 10*3/uL Normal 150-400 [facility] Comment on above: Order Comment: Speci men Type: BLOOD SPECIMENOrdering Facility: [facility] Address: [address] [place] [address] Performed By: #### 5 8410-2 ####[facility] LABIA [id number] [place] [address] [place] RBC (Bld) [#/Vol] 3.48 10*6/uL Low 4.20-6.00 [facility] Comment on above: Order Comment: Speci men Type: BLOOD SPECIMENOrdering Facility: [facility] Address: [address] [place] [address] Performed By: #### 5 8410-2 ####[facility] LABIA [id number] [place] [address] [place] WBC (Bld) [#/Vol] 7.80 10*3/uL Normal 3.70-11.00 [facility] Comment on above: Order Comment: Speci men Type: BLOOD SPECIMENOrdering Facility: [facility] Address: [address] [place] [address] Performed By: #### 5 8410-2 ####[facility] LABIA [id number] [place] [address] [place] Comprehensive metabolic 2000 panelon 10-26-2024 Albumin [Mass/Vol] 3.8 g/dL Low 3.9-4.9 [facility] Comment on above: Order Comment: Speci men Type: BLOOD SPECIMENOrdering Facility: [facility] Address: [address] [place] [address] Performed By: #### 1 23-9, 57187-5 ####[facility] LABCLIA [id number] [address] [address] [place] ALP [Catalytic activity/Vol] 42 U/L Normal 38-113 [facility] Comment on above: Order Comment: Speci men Type: BLOOD SPECIMENOrdering Facility: [facility] Address: [address] [place], [place] [address] Performed By: #### 1 23-9, 11869-4 ####[facility] LABCLIA [id number] [place] [address] [place] ALT [Catalytic activity/Vol] 24 U/L Normal 10-54 [facility] Comment on above: Order Comment: Speci men Type: BLOOD SPECIMENOrdering Facility: [facility] Address: [address] [place] [address] Performed By: #### 1 9, ####[facility] LABCLIA [id number] [place] [id number] [place] Anion gap [Moles/Vol] 11 mmol/L Normal 8-15 [facility] Comment on above: Order Comment: Speci men Type: BLOOD SPECIMENOrdering Facility: [facility] Address: [address] [place] [address] Performed By: #### 1 23-9, 71655-8 ####[facility] LABCLIA [id number] [place] [id number] [place] AST [Catalytic activity/Vol] 20 U/L Normal 14-40 [facility] Comment on above: Order Comment: Speci men Type: BLOOD SPECIMENOrdering Facility: [facility] Address: [address] [place] [address] Performed By: #### 1 23-9, 83544-4 ####[facility] LABCLIA [id number] [address] [address] [place] Bilirubin [Mass/Vol] 0.2 mg/dL Normal 0.2-1.3 [facility] Comment on above: Order Comment: Speci men Type: BLOOD SPECIMENOrdering Facility: [facility] Address: [address] [place] [address] Performed By: #### 1 9123-9, 06740-1 ####[facility] LABCLIA [id number] [place] [address] [place] Calcium [Mass/Vol] 8.9 mg/dL Normal 8.5-10.2 [facility] Comment on above: Order Comment: Speci men Type: BLOOD SPECIMENOrdering Facility: [facility] Address: [address] [place] [address] Performed By: #### 1 9123-9, 38787-9 ####[facility] LABCLIA [id number] [place] [address] [place] Chloride [Moles/Vol] 101 mmol/L Normal 98-107 [facility] Comment on above: Order Comment: Speci men Type: BLOOD SPECIMENOrdering Facility: [facility] Address: [address] [place] [address] Performed By: #### 1 9123-9, ####[facility] LABCLIA [id number] [place] [address] [place] CO2 [Moles/Vol] 21 mmol/L Low 22-30 [facility] Comment on above: Order Comment: Speci men Type: BLOOD SPECIMENOrdering Facility: [facility] Address: [address] [place] [address] Performed By: #### 1 9123-9, ####[facility] LABCLIA [id number] [place] [address] [place] Creatinine [Mass/Vol] 1.83 mg/dL High 0.73-1.22 [facility] Comment on above: Order Comment: Speci men Type: BLOOD SPECIMENOrdering Facility: [facility] Address: [address] [place] [address] Performed By: #### 1 9123-9, 60316-4 ####[facility] LABCLIA [id number] [place] [address] [place] Creatinine and Glomerular filtration rate.predicted panel (S/P/Bld) 39 mL/min/1.73m??? Low >=60 [facility] Comment on above: Order Comment: Jose Cruz johnson Type: BLOOD SPECIMENOrdering Facility: [facility] Address: [address] [place] [address] Result Comment: Mary Kay mated Glomerular Filtration Rate (eGFR) is calculated using the 2020 CKD-EPI creatinine equation. This equation utilizes serum creatinine, sex, and age as parameters. The creatinine assay has traceable calibration to isotope dilution-mass spectrometry. Refer to KDIGO guidelines for clinical interpretation. In patients with unstable renal function, e.g. those with acute kidney injury, the eGFR may not accurately reflect actual GFR. Performed By: #### 1 9123-9, 36890-8 ####[facility] LABIA [id number] [place] [address] [place] Glucose [Mass/Vol] 132 mg/dL High 74-99 [facility] Comment on above: Order Comment: Jose Cruz johnson Type: BLOOD SPECIMENOrdering Facility: [facility] Address: [address] [place] [address] Result Comment: The [place] Diabetes [employer] (ADA) provides guidance for cutoff values for fasting glucose and random glucose. The ADA defines fasting as no caloric intake for at least 8 hours. Fasting plasma glucose results between 100 to 125 mg/dL indicate increased risk for diabetes (prediabetes).Fasting plasma glucose results greater than or equal to 126 mg/dL meet the criteria for diagnosis of diabetes. In the absence of unequivocal hyperglycemia, results should be confirmed by repeat testing. In a patient with classic symptoms of hyperglycemia or hyperglycemic crisis, random plasma glucose results greater than or equal to 200 mg/dL meet the criteria for diagnosis of diabetes.Reference: Standards of Medical Care in Diabetes 2016, [place] [employer]. Diabetes Care. 2016.39(Suppl 1). Performed By: #### 1 9123-9, 36868-3 ####[facility] LABCLIA [id number] [place] [address] [place] Potassium [Moles/Vol] 4.7 mmol/L Normal 3.7-5.1 [facility] Comment on above: Order Comment: Speci men Type: BLOOD SPECIMENOrdering Facility: [facility] Address: [address] [place] [address] Performed By: #### 1 23-9, 89066-8 ####[facility] LABCLIA [id number] [place] [address] [place] Protein [Mass/Vol] 6.6 g/dL Normal 6.3-8.0 [facility] Comment on above: Order Comment: Speci men Type: BLOOD SPECIMENOrdering Facility: [facility] Address: [address] [place] [address] Performed By: #### 1 239, 65267-4 ####[facility] LABCLIA [id number] [place] [address] [place] Sodium [Moles/Vol] 133 mmol/L Low 136-144 [facility] Comment on above: Order Comment: Speci men Type: BLOOD SPECIMENOrdering Facility: [facility] Address: [address] [place] [address] Performed By: #### 1 23-9, 81974-0 ####[facility] LABCLIA [id number] [address] [address] [place] Urea nitrogen [Mass/Vol] 29 mg/dL High 9-24 [facility] Comment on above: Order Comment: Speci men Type: BLOOD SPECIMENOrdering Facility: [facility] Address: [address] [place] [address] Performed By: #### 1 23-9, 60376-9 ####[facility] LABCLIA [id number] [place] [id number] [place] Magnesium SerPl-mCncon 10-26 Magnesium [Mass/Vol] 2.1 mg/dL Normal 1.7-2.3 [facility] Comment on above: Order Comment: Speci men Type: BLOOD SPECIMENOrdering Facility: [facility] Address: [address] [place] [address] Performed By: #### 1 9123-9, 99122-5 ####[facility] LABCLIA [id number] [place] [address] [place] NUTRITIONon 10-26-2024 NUTRITION Normal [facility] PTT, ANTICOAGULANT THERAPYon 10-26-2024 aPTT Coag (PPP) [Time] 57.2 s High 23.0-32.4 [facility] Comment on above: Order Comment: Speci men Type: BLOOD SPECIMENOrdering Facility: [facility] Address: [address] [place] [address] Performed By: #### P TTAC ####[facility] LABIA [id number] [place] [address] [place] aPTT Coag (PPP) [Time] 47.7 s High 23.0-32.4 [facility] Comment on above: Order Comment: Speci men Type: BLOOD SPECIMENOrdering Facility: [facility] Address: [address] [place] [address] Performed By: #### P TTAC ####[facility] LABIA [id number] [place] [address] [place] aPTT Coag (PPP) [Time] 51.4 s High 23.0-32.4 [facility] Comment on above: Order Comment: Speci men Type: BLOOD SPECIMENOrdering Facility: [facility] Address: [address] [place] [address] Performed By: #### P TTAC ####[facility] LABIA [id number] [place] [address] [place] aPTT Coag (PPP) [Time] 104.8 s High 23.0-32.4 [facility] Comment on above: Order Comment: Speci men Type: BLOOD SPECIMENOrdering Facility: [facility] Address: [address] [place] [address] Result Comment: Resu lt rechecked.Sample checked for clot. Performed By: #### P TTAC ####[facility] LABIA [id number] [place] [address] [place] CBC panel Auto (Bld)on 10-25 Erythrocyte distribution width (RBC) [Ratio] 12.6 % Normal 11.5-15.0 [facility] Comment on above: Order Comment: Speci men Type: BLOOD SPECIMENOrdering Facility: [facility] Address: [address] [place] [address] Performed By: #### 5 8410-2 ####[facility] [id number] [place] [address] [place] Hematocrit (Bld) [Volume fraction] 30.8 % Low 39.0-51.0 [facility] Comment on above: Order Comment: Speci men Type: BLOOD SPECIMENOrdering Facility: [facility] Address: [address] [place] [address] Performed By: #### 5 8410-2 ####[facility] LABIA [id number] [place] [address] [place] Hemoglobin (Bld) [Mass/Vol] 9.8 g/dL Low 13.0-17.0 [facility] Comment on above: Order Comment: Speci men Type: BLOOD SPECIMENOrdering Facility: [facility] Address: [address] [place] [address] Performed By: #### 5 8410-2 ####[facility] LABIA [id number] [place] [address] [place] MCH (RBC) [Entitic mass] 29.7 pg Normal 26.0-34.0 [facility] Comment on above: Order Comment: Speci men Type: BLOOD SPECIMENOrdering Facility: [facility] Address: [address] [place] [address] Performed By: #### 5 8410-2 ####[facility] LABCLIA [id number] [place] [address] [place] MCHC (RBC) [Mass/Vol] 31.8 g/dL Normal 30.5-36.0 [facility] Comment on above: Order Comment: Speci men Type: BLOOD SPECIMENOrdering Facility: [facility] Address: [address] [place] [address] Performed By: #### 5 8410-2 ####[facility] LABIA [id number] [place] [address] [place] MCV (RBC) [Entitic vol] 93.3 fL Normal 80.0-100.0 [facility] Comment on above: Order Comment: Speci men Type: BLOOD SPECIMENOrdering Facility: [facility] Address: [address] [place] [address] Performed By: #### 5 8410-2 ####[facility] LABIA [id number] [place] [address] [place] Nucleated RBC (Bld) [#/Vol] 10*3/uL Normal <0.01 [facility] Comment on above: Order Comment: Speci men Type: BLOOD SPECIMENOrdering Facility: [facility] Address: [address] [place] [address] Performed By: #### 5 8410-2 ####[facility] LABCLIA [id number] [place] [address] [place] Platelet mean volume (Bld) [Entitic vol] 10.7 fL Normal 9.0-12.7 [facility] Comment on above: Order Comment: Speci men Type: BLOOD SPECIMENOrdering Facility: [facility] Address: [address] [place] [address] Performed By: #### 5 8410-2 ####[facility] LABCLIA [id number] [place] [address] [place] Platelets (Bld) [#/Vol] 215 10*3/uL Normal 150-400 [facility] Comment on above: Order Comment: Speci men Type: BLOOD SPECIMENOrdering Facility: [facility] Address: [address] [place] [address] Performed By: #### 5 8410-2 ####[facility] LABIA [id number] [place] [address] [place] RBC (Bld) [#/Vol] 3.30 10*6/uL Low 4.20-6.00 [facility] Comment on above: Order Comment: Speci men Type: BLOOD SPECIMENOrdering Facility: [facility] Address: [address] [place] [address] Performed By: #### 5 8410-2 ####[facility] LABCLIA [id number] [place] [address] [place] WBC (Bld) [#/Vol] 8.86 10*3/uL Normal 3.70-11.00 [facility] Comment on above: Order Comment: Speci men Type: BLOOD SPECIMENOrdering Facility: [facility] Address: [address] [place] [address] Performed By: #### 5 8410-2 ####[facility] LABIA [id number] [place] [address] [place] Comprehensive metabolic 2000 panelon 10-25-2024 Albumin [Mass/Vol] 3.9 g/dL Normal 3.9-4.9 [facility] Comment on above: Order Comment: Speci men Type: BLOOD SPECIMENOrdering Facility: [facility] Address: [address] [place] [address] Performed By: #### 2 4323-8, ####[facility] LABCLIA [id number] [address] [address] [place] ALP [Catalytic activity/Vol] 50 U/L Normal 38-113 [facility] Comment on above: Order Comment: Speci men Type: BLOOD SPECIMENOrdering Facility: [facility] Address: [address] [place] [address] Performed By: #### 2 432-8, ####[facility] LABCLIA [id number] [place] [id number] [place] ALT [Catalytic activity/Vol] 31 U/L Normal 10-54 [facility] Comment on above: Order Comment: Speci men Type: BLOOD SPECIMENOrdering Facility: [facility] Address: [address] [place] [address] Performed By: #### 2 432-8, ####[facility] LABCLIA [id number] [place] [id number] [place] Anion gap [Moles/Vol] 11 mmol/L Normal 8-15 [facility] Comment on above: Order Comment: Speci men Type: BLOOD SPECIMENOrdering Facility: [facility] Address: [address] [place], [place] [address] Performed By: #### 2 4323-8, ####[facility] LABCLIA [id number] [place] [id number] [place] AST [Catalytic activity/Vol] 30 U/L Normal 14-40 [facility] Comment on above: Order Comment: Speci men Type: BLOOD SPECIMENOrdering Facility: [facility] Address: [address] [place], [place] [address] Performed By: #### 2 4323-8, ####[facility] LABCLIA [id number] [id number] [address] [place] Bilirubin [Mass/Vol] 0.2 mg/dL Normal 0.2-1.3 [facility] Comment on above: Order Comment: Speci men Type: BLOOD SPECIMENOrdering Facility: [facility] Address: [address] [place], [place] [address] Performed By: #### 2 4323-8, ####[facility] LABCLIA [id number] [place] [address] [place] Calcium [Mass/Vol] 9.2 mg/dL Normal 8.5-10.2 [facility] Comment on above: Order Comment: Speci men Type: BLOOD SPECIMENOrdering Facility: [facility] Address: [address] [place] [address] Performed By: #### 2 432-8, ####[facility] LABCLIA [id number] [place] [address] [place] Chloride [Moles/Vol] 102 mmol/L Normal 98-107 [facility] Comment on above: Order Comment: Speci men Type: BLOOD SPECIMENOrdering Facility: [facility] Address: [address] [place] [address] Performed By: #### 2 8, ####[facility] LABCLIA [id number] [place] [address] [place] CO2 [Moles/Vol] 21 mmol/L Low 22-30 [facility] Comment on above: Order Comment: Speci men Type: BLOOD SPECIMENOrdering Facility: [facility] Address: [address] [place] [address] Performed By: #### 2 4322-8, ####[facility] LABCLIA [id number] [place] [id number] [place] Creatinine [Mass/Vol] 1.81 mg/dL High 0.73-1.22 [facility] Comment on above: Order Comment: Speci men Type: BLOOD SPECIMENOrdering Facility: [facility] Address: [address] [place] [address] Performed By: #### 2 4323-8, ####[facility] LABIA [id number] [place] [id number] [place] Creatinine and Glomerular filtration rate.predicted panel (S/P/Bld) 39 mL/min/1.73m??? Low >=60 [facility] Comment on above: Order Comment: Jose Cruz johnson Type: BLOOD SPECIMENOrdering Facility: [facility] Address: [address] [place] [address] Result Comment: Mary Kay mated Glomerular Filtration Rate (eGFR) is calculated using the 2020 CKD-EPI creatinine equation. This equation utilizes serum creatinine, sex, and age as parameters. The creatinine assay has traceable calibration to isotope dilution-mass spectrometry. Refer to KDIGO guidelines for clinical interpretation. In patients with unstable renal function, e.g. those with acute kidney injury, the eGFR may not accurately reflect actual GFR. Performed By: #### 2 4323-8, ####[facility] LABIA [id number] [place] [id number] [place] Glucose [Mass/Vol] 101 mg/dL High 74-99 [facility] Comment on above: Order Comment: Jose Cruz johnson Type: BLOOD SPECIMENOrdering Facility: [facility] Address: [address] [place] [address] Result Comment: The [place] Diabetes Association (ADA) provides guidance for cutoff values for fasting glucose and random glucose. The ADA defines fasting as no caloric intake for at least 8 hours. Fasting plasma glucose results between 100 to 125 mg/dL indicate increased risk for diabetes (prediabetes).Fasting plasma glucose results greater than or equal to 126 mg/dL meet the criteria for diagnosis of diabetes. In the absence of unequivocal hyperglycemia, results should be confirmed by repeat testing. In a patient with classic symptoms of hyperglycemia or hyperglycemic crisis, random plasma glucose results greater than or equal to 200 mg/dL meet the criteria for diagnosis of diabetes.Reference: Standards of Medical Care in Diabetes 2016, [place] [employer]. Diabetes Care. 2016.39(Suppl 1). Performed By: #### 2 432-8, ####[facility] LABCLIA [id number] [address] [address] [place] Potassium [Moles/Vol] 5.1 mmol/L Normal 3.7-5.1 [facility] Comment on above: Order Comment: Speci men Type: BLOOD SPECIMENOrdering Facility: [facility] Address: [address] [place] [address] Performed By: #### 2 43211-25, ####[facility] LABCLIA [id number] [place] [address] [place] Protein [Mass/Vol] 6.7 g/dL Normal 6.3-8.0 [facility] Comment on above: Order Comment: Speci men Type: BLOOD SPECIMENOrdering Facility: [facility] Address: [address] [place] [address] Performed By: #### 2 4323-04, ####[facility] LABCLIA [id number] [place] [address] [place] Sodium [Moles/Vol] 134 mmol/L Low 136-144 [facility] Comment on above: Order Comment: Speci men Type: BLOOD SPECIMENOrdering Facility: [facility] Address: [address] [place] [address] Performed By: #### 2 4323-04, ####[facility] LABCLIA [id number] [address] [address] [place] Urea nitrogen [Mass/Vol] 31 mg/dL High 9-24 [facility] Comment on above: Order Comment: Speci men Type: BLOOD SPECIMENOrdering Facility: [facility] Address: [address] [place] [address] Performed By: #### 2 4323-8, ####[facility] LABCLIA [id number] [place] [address] [place] Magnesium SerPl-mCncon 10-25 Magnesium [Mass/Vol] 2.0 mg/dL Normal 1.7-2.3 [facility] Comment on above: Order Comment: Speci men Type: BLOOD SPECIMENOrdering Facility: [facility] Address: [address] [place] [address] Performed By: #### 2 4323-8, 76159-8 ####[facility] LABIA [id number] [place] [address] [place] NM PET/CT CARDIAC VIABILITYo n 10-25-2024 NM PET/CT CARDIAC VIABILITY Normal [facility] NM PET/CT CARDIAC VIABILITY Normal [facility] NURSING PROGon 10-25-2024 NURSING PROG Normal [facility] PTT, ANTICOAGULANT THERAPYon 10-25-2024 aPTT Coag (PPP) [Time] 65.2 s High 23.0-32.4 [facility] Comment on above: Order Comment: Speci men Type: BLOOD SPECIMENOrdering Facility: [facility] Address: [address] [place] [address] Performed By: #### P TTAC ####[facility] LABIA [id number] [place] [address] [place] aPTT Coag (PPP) [Time] 45.0 s High 23.0-32.4 [facility] Comment on above: Order Comment: Speci men Type: BLOOD SPECIMENOrdering Facility: [facility] Address: [address] [place] [address] Performed By: #### P TTAC ####[facility] LABIA [id number] [place] [address] [place] aPTT Coag (PPP) [Time] 54.5 s High 23.0-32.4 [facility] Comment on above: Order Comment: Speci men Type: BLOOD SPECIMENOrdering Facility: [facility] Address: [address] [place] [address] Performed By: #### P TTA ####[facility] LABCLIA [id number] [place] [address] [place] CBC panel Auto (Bld)on 10-24 Erythrocyte distribution width (RBC) [Ratio] 12.7 % Normal 11.5-15.0 [facility] Comment on above: Order Comment: Speci men Type: BLOOD SPECIMENOrdering Facility: [facility] Address: [address] [place] [address] Performed By: #### 5 8410-2 ####[facility] LABCLIA [id number] [place] [address] [place] Hematocrit (Bld) [Volume fraction] 31.4 % Low 39.0-51.0 [facility] Comment on above: Order Comment: Speci men Type: BLOOD SPECIMENOrdering Facility: [facility] Address: [address] [place] [address] Performed By: #### 5 8410-2 ####[facility] LABIA [id number] [place] [address] [place] Hemoglobin (Bld) [Mass/Vol] 10.2 g/dL Low 13.0-17.0 [facility] Comment on above: Order Comment: Speci men Type: BLOOD SPECIMENOrdering Facility: [facility] Address: [address] [place] [address] Performed By: #### 5 8410-2 ####[facility] LABCLIA [id number] [place] [address] [place] MCH (RBC) [Entitic mass] 29.7 pg Normal 26.0-34.0 [facility] Comment on above: Order Comment: Speci men Type: BLOOD SPECIMENOrdering Facility: [facility] Address: [address] [place] [address] Performed By: #### 5 8410-2 ####[facility] LABCLIA [id number] [place] [address] [place] MCHC (RBC) [Mass/Vol] 32.5 g/dL Normal 30.5-36.0 [facility] Comment on above: Order Comment: Speci men Type: BLOOD SPECIMENOrdering Facility: [facility] Address: [address] [place] [address] Performed By: #### 5 8410-2 ####[facility] LABCLIA [id number] [place] [address] [place] MCV (RBC) [Entitic vol] 91.3 fL Normal 80.0-100.0 [facility] Comment on above: Order Comment: Speci men Type: BLOOD SPECIMENOrdering Facility: [facility] Address: [address] [place] [address] Performed By: #### 5 8410-2 ####[facility] LABIA [id number] [place] [address] [place] Nucleated RBC (Bld) [#/Vol] 10*3/uL Normal <0.01 [facility] Comment on above: Order Comment: Speci men Type: BLOOD SPECIMENOrdering Facility: [facility] Address: [address] [place] [address] Performed By: #### 5 8410-2 ####[facility] LABIA [id number] [place] [address] [place] Platelet mean volume (Bld) [Entitic vol] 10.4 fL Normal 9.0-12.7 [facility] Comment on above: Order Comment: Speci men Type: BLOOD SPECIMENOrdering Facility: [facility] Address: [address] [place] [address] Performed By: #### 5 8410-2 ####[facility] LABCLIA [id number] [place] [address] [place] Platelets (Bld) [#/Vol] 240 10*3/uL Normal 150-400 [facility] Comment on above: Order Comment: Speci men Type: BLOOD SPECIMENOrdering Facility: [facility] Address: [address] [place] [address] Performed By: #### 5 8410-2 ####[facility] LABCLIA [id number] [place] [address] [place] RBC (Bld) [#/Vol] 3.44 10*6/uL Low 4.20-6.00 [facility] Comment on above: Order Comment: Speci men Type: BLOOD SPECIMENOrdering Facility: [facility] Address: [address] [place] [address] Performed By: #### 5 8410-2 ####[facility] LABCLIA [id number] [place] [address] [place] WBC (Bld) [#/Vol] 8.75 10*3/uL Normal 3.70-11.00 [facility] Comment on above: Order Comment: Speci men Type: BLOOD SPECIMENOrdering Facility: [facility] Address: [address] [place] [place] [address] Performed By: #### 5 8410-2 ####[facility] LABCLIA [id number] [place] [address] [place] CYSTATIN Con 10-24-2024 Cystatin C [Mass/Vol] 1.63 mg/L High 0.61-0.95 [facility] Comment on above: Order Comment: Speci men Type: BLOOD SPECIMENOrdering Facility: [facility] Address: [address] [place] [address] Performed By: #### C YSTC, 73505-0, 13355-6 ####[facility] LABCLIA [id number] [place] [address] [place] CYSTATIN C EGFR 39 mL/min/1.73m??? Low >=60 [facility] Comment on above: Order Comment: Speci men Type: BLOOD SPECIMENOrdering Facility: [facility] Address: [address] [place] [address] Result Comment: Mary Kay mated Glomerular Filtration Rate (eGFR) is calculated using the 2012 CKD-EPI cystatin C equation. This equation utilizes serum cystatin C, sex, and age as parameters. The cystatin C assay has traceable calibration to the ERM-DA471/[facility] reference material. Refer to KDIGO guidelines for clinical interpretation. In patients with unstable renal function, e.g. those with acute kidney injury, the eGFR may not accurately reflect actual GFR. Performed By: #### C ALTHEA, , ####[facility] LABIA [id number] [place] [address] [place] Comprehensive metabolic 2000 panelon 10-24-2024 Albumin [Mass/Vol] 4.0 g/dL Normal 3.9-4.9 [facility] Comment on above: Order Comment: Speci men Type: BLOOD SPECIMENOrdering Facility: [facility] Address: [address] [place] [address] Performed By: #### C DENNYSTC, , ####[facility] LABIA [id number] [place] [address] [place] ALP [Catalytic activity/Vol] 47 U/L Normal 38-113 [facility] Comment on above: Order Comment: Speci men Type: BLOOD SPECIMENOrdering Facility: [facility] Address: [address] [place] [address] Performed By: #### C YSTC, , ####[facility] LABIA [id number] [place] [id number] [place] ALT [Catalytic activity/Vol] 32 U/L Normal 10-54 [facility] Comment on above: Order Comment: Speci men Type: BLOOD SPECIMENOrdering Facility: [facility] Address: [address] [place] [address] Performed By: #### C DENNYSTC, , ####[facility] LABCLIA [id number] [place] [id number] [place] Anion gap [Moles/Vol] 12 mmol/L Normal 8-15 [facility] Comment on above: Order Comment: Speci men Type: BLOOD SPECIMENOrdering Facility: [facility] Address: [address] [place] [address] Performed By: #### [place], , ####[facility] LABCLIA [id number] [place] [address] [place] AST [Catalytic activity/Vol] 39 U/L Normal 14-40 [facility] Comment on above: Order Comment: Speci men Type: BLOOD SPECIMENOrdering Facility: [facility] Address: [address] [place] [address] Performed By: #### [place], , ####[facility] LABCLIA [id number] [place] [address] [place] Bilirubin [Mass/Vol] 0.2 mg/dL Normal 0.2-1.3 [facility] Comment on above: Order Comment: Speci men Type: BLOOD SPECIMENOrdering Facility: [facility] Address: [address] [place] [address] Performed By: #### [place], , ####[facility] LABCLIA [id number] [place] [address] [place] Calcium [Mass/Vol] 9.0 mg/dL Normal 8.5-10.2 [facility] Comment on above: Order Comment: Speci men Type: BLOOD SPECIMENOrdering Facility: [facility] Address: [address] [place] [address] Performed By: #### [place], , ####[facility] LABCLIA [id number] [id number] [address] [place] Chloride [Moles/Vol] 102 mmol/L Normal 98-107 [facility] Comment on above: Order Comment: Speci men Type: BLOOD SPECIMENOrdering Facility: [facility] Address: [address] [place] [address] Performed By: #### C YSTC, 48632-1, ####[facility] LABCLIA [id number] [place] [address] [place] CO2 [Moles/Vol] 23 mmol/L Normal 22-30 [facility] Comment on above: Order Comment: Speci men Type: BLOOD SPECIMENOrdering Facility: [facility] Address: [address] [place] [address] Performed By: #### C YSTC, 26273-4, ####[facility] LABCLIA [id number] [place] [address] [place] Creatinine [Mass/Vol] 1.72 mg/dL High 0.73-1.22 [facility] Comment on above: Order Comment: Speci men Type: BLOOD SPECIMENOrdering Facility: [facility] Address: [address] [place] [address] Performed By: #### C YSTC, , ####[facility] LABIA [id number] [place] [address] [place] Creatinine and Glomerular filtration rate.predicted panel (S/P/Bld) 42 mL/min/1.73m??? Low >=60 [facility] Comment on above: Order Comment: Speci men Type: BLOOD SPECIMENOrdering Facility: [facility] Address: [address] [place] [address] Result Comment: Mary Kay mated Glomerular Filtration Rate (eGFR) is calculated using the 2020 CKD-EPI creatinine equation. This equation utilizes serum creatinine, sex, and age as parameters. The creatinine assay has traceable calibration to isotope dilution-mass spectrometry. Refer to KDIGO guidelines for clinical interpretation. In patients with unstable renal function, e.g. those with acute kidney injury, the eGFR may not accurately reflect actual GFR. Performed By: #### [place], , ####[facility] LABCLIA [id number] [place] [id number] [place] Glucose [Mass/Vol] 149 mg/dL High 74-99 [facility] Comment on above: Order Comment: Speci men Type: BLOOD SPECIMENOrdering Facility: [facility] Address: [address] [place] [address] Result Comment: The [place] [employer] (ADA) provides guidance for cutoff values for fasting glucose and random glucose. The ADA defines fasting as no caloric intake for at least 8 hours. Fasting plasma glucose results between 100 to 125 mg/dL indicate increased risk for diabetes (prediabetes).Fasting plasma glucose results greater than or equal to 126 mg/dL meet the criteria for diagnosis of diabetes. In the absence of unequivocal hyperglycemia, results should be confirmed by repeat testing. In a patient with classic symptoms of hyperglycemia or hyperglycemic crisis, random plasma glucose results greater than or equal to 200 mg/dL meet the criteria for diagnosis of diabetes.Reference: Standards of Medical Care in Diabetes 2016, [place] [employer]. Diabetes Care. 2016.39(Suppl 1). Performed By: #### C ALTHEA, , ####[facility] LABCLIA [id number] [address] [address] [place] Potassium [Moles/Vol] 5.0 mmol/L Normal 3.7-5.1 [facility] Comment on above: Order Comment: Dahianai men Type: BLOOD SPECIMENOrdering Facility: [facility] Address: [address] [place] [address] Performed By: #### C ALTHEA, , ####[facility] LABIA [id number] [address] [address] [place] Protein [Mass/Vol] 6.5 g/dL Normal 6.3-8.0 [facility] Comment on above: Order Comment: Speci men Type: BLOOD SPECIMENOrdering Facility: [facility] Address: [address] [place] [address] Performed By: #### [place], , ####[facility] LABCLIA [id number] [place] [id number] [place] Sodium [Moles/Vol] 137 mmol/L Normal 136-144 [facility] Comment on above: Order Comment: Speci men Type: BLOOD SPECIMENOrdering Facility: [facility] Address: [address] [place] [address] Performed By: #### [place], , ####[facility] LABCLIA [id number] [place] [address] [place] Urea nitrogen [Mass/Vol] 27 mg/dL High 9-24 [facility] Comment on above: Order Comment: Speci men Type: BLOOD SPECIMENOrdering Facility: [facility] Address: [address] [place] [address] Performed By: #### [place], , ####[facility] LABIA [id number] [place] [address] [place] Magnesium SerPl-mCncon 10-24 Magnesium [Mass/Vol] 2.0 mg/dL Normal 1.7-2.3 [facility] Comment on above: Order Comment: Speci men Type: BLOOD SPECIMENOrdering Facility: [facility] Address: [address] [place] [address] Performed By: #### [place], , ####[facility] LABCLIA [id number] [place] [address] [place] PTT, ANTICOAGULANT THERAPYon 10-24-2024 aPTT Coag (PPP) [Time] 57.1 s High 23.0-32.4 [facility] Comment on above: Order Comment: Speci men Type: BLOOD SPECIMENOrdering Facility: [facility] Address: [address] [place] [address] Performed By: #### P TTAC ####[facility] LABCLIA [id number] [place] [address] [place] aPTT Coag (PPP) [Time] 78.6 s High 23.0-32.4 [facility] Comment on above: Order Comment: Speci men Type: BLOOD SPECIMENOrdering Facility: [facility] Address: [address] [place] [address] Performed By: #### P TTAC ####[facility] LABCLIA [id number] [address] [place] aPTT Coag (PPP) [Time] 62.6 s High 23.0-32.4 [facility] Comment on above: Order Comment: Speci men Type: BLOOD SPECIMENOrdering Facility: [facility] Address: [address] [place] [address] Performed By: #### P TTAC ####[facility] LABIA [id number] [place] [address] [place] Urinalysis complete panel (U )on 10-24-2024 Bacteria LM.HPF (Urine sed) [#/Area] Negative Normal Negative [facility] Comment on above: Order Comment: Speci men Type: URINE SPECIMENOrdering Facility: [facility] Address: [address] [place] [address] Performed By: #### 2 4356-8 ####[facility] LABCLIA [id number] [place] [address] [place] Bilirubin Ql (U) Negative Normal Negative [facility] Comment on above: Order Comment: Speci men Type: URINE SPECIMENOrdering Facility: [facility] Address: [address] [place] [address] Performed By: #### 2 4356-8 ####[facility] LABCLIA [id number] [place] [address] [place] Clarity (Unsp spec) Clear Normal Clear [facility] Comment on above: Order Comment: Speci men Type: URINE SPECIMENOrdering Facility: [facility] Address: [address] [place] [address] Performed By: #### 2 4356-8 ####[facility] LABCLIA [id number] [place] [address] [place] Color (U) Yellow Normal Yellow [facility] Comment on above: Order Comment: Speci men Type: URINE SPECIMENOrdering Facility: [facility] Address: [facility] [place] [address] Performed By: #### 2 4356-8 ####[facility] LABCLIA [id number] [place] [address] [place] Epithelial cells LM.HPF (Urine sed) [#/Area] None Seen Normal [facility] Comment on above: Order Comment: Speci men Type: URINE SPECIMENOrdering Facility: [facility] Address: [address] [place] [address] Performed By: #### 2 4356-8 ####[facility] LABCLIA [id number] [place] [address] [place] Glucose Test strip (U) [Mass/Vol] Negative Normal Negative [facility] Comment on above: Order Comment: Speci men Type: URINE SPECIMENOrdering Facility: [facility] Address: [address] [place] [address] Performed By: #### 2 4356-8 ####[facility] LABCLIA [id number] [place] [address] [place] Hemoglobin Ql (U) Negative Normal Negative [facility] Comment on above: Order Comment: Speci men Type: URINE SPECIMENOrdering Facility: [facility] Address: [address] [place] [address] Performed By: #### 2 4356-8 ####[facility] LABCLIA [id number] [place] [address] [place] Hyaline casts (Urine sed) [#/Area] 0 /[LPF] Normal 0 /LPF [facility] Comment on above: Order Comment: Speci men Type: URINE SPECIMENOrdering Facility: [facility] Address: [address] [place] [address] Performed By: #### 2 4356-8 ####[facility] LABCLIA [id number] [place] [address] [place] Ketones Ql (U) Negative Normal Negative [facility] Comment on above: Order Comment: Speci men Type: URINE SPECIMENOrdering Facility: [facility] Address: [address] [place] [address] Performed By: #### 2 4356-8 ####[facility] LABCLIA [id number] [place] [address] [place] Leukocyte esterase Test strip Ql (U) Negative Normal Negative [facility] Comment on above: Order Comment: Speci men Type: URINE SPECIMENOrdering Facility: [facility] Address: [address] [place] [address] Performed By: #### 2 4356-8 ####[facility] LABCLIA [id number] [place] [address] [place] Nitrite Ql (U) Negative Normal Negative [facility] Comment on above: Order Comment: Speci men Type: URINE SPECIMENOrdering Facility: [facility] Address: [address] [place] [address] Performed By: #### 2 4356-8 ####[facility] LABCLIA [id number] [place] [address] [place] pH (U) 6.0 [pH] Normal <8.5 [facility] Comment on above: Order Comment: Speci men Type: URINE SPECIMENOrdering Facility: [facility] Address: [address] [place] [address] Performed By: #### 2 4356-8 ####[facility] LABIA [id number] [place] [address] [place] Protein (U) [Mass/Vol] Negative Normal Negative [facility] Comment on above: Order Comment: Speci men Type: URINE SPECIMENOrdering Facility: [facility] Address: [address] [place] [address] Performed By: #### 2 4356-8 ####[facility] LABIA [id number] [place] [address] [place] RBC LM.HPF (Urine sed) [#/Area] 0-2 /HPF Normal 0-2 /HPF [facility] Comment on above: Order Comment: Speci men Type: URINE SPECIMENOrdering Facility: [facility] Address: [address] [place] [address] Performed By: #### 2 4356-8 ####[facility] [id number] [place] [address] [place] Specific gravity (U) [Rel density] 1.018 Normal 1.005-1.030 [facility] Comment on above: Order Comment: Speci men Type: URINE SPECIMENOrdering Facility: [facility] Address: [address] [place] [address] Performed By: #### 2 4356-8 ####[facility] LABIA [id number] [place] [address] [place] Urobilinogen Ql (U) 0.2 EU/dL Normal 0.2-1.0 EU/dL [facility] Comment on above: Order Comment: Speci men Type: URINE SPECIMENOrdering Facility: [facility] Address: [address] [place] [address] Performed By: #### 2 4356-8 ####[facility] LABIA [id number] [place] [address] [place] WBC LM.HPF (Urine sed) [#/Area] 0-5 /HPF Normal 0-5 /HPF [facility] Comment on above: Order Comment: Speci men Type: URINE SPECIMENOrdering Facility: [facility] Address: [address] [place] [address] Performed By: #### 2 4356-8 ####[facility] LABIA [id number] [place] [address] [place] CASE MANAGEMon 10-23-2024 CASE MANAGEM Normal [facility] CBC panel Auto (Bld)on 10-23 Erythrocyte distribution width (RBC) [Ratio] 12.4 % Normal 11.5-15.0 [facility] Comment on above: Order Comment: Speci men Type: BLOOD SPECIMENOrdering Facility: [facility] Address: [address] [place] [address] Performed By: #### 5 8410-2 ####[facility] LABIA [id number] [place] [address] [place] Hematocrit (Bld) [Volume fraction] 29.1 % Low 39.0-51.0 [facility] Comment on above: Order Comment: Speci men Type: BLOOD SPECIMENOrdering Facility: [facility] Address: [address] [place] [address] Performed By: #### 5 8410-2 ####[facility] LABCLIA [id number] [place] [address] [place] Hemoglobin (Bld) [Mass/Vol] 9.5 g/dL Low 13.0-17.0 [facility] Comment on above: Order Comment: Speci men Type: BLOOD SPECIMENOrdering Facility: [facility] Address: [address] [place] [address] Performed By: #### 5 8410-2 ####[facility] LABIA [id number] [place] [address] [place] MCH (RBC) [Entitic mass] 29.3 pg Normal 26.0-34.0 [facility] Comment on above: Order Comment: Speci men Type: BLOOD SPECIMENOrdering Facility: [facility] Address: [address] [place] [address] Performed By: #### 5 8410-2 ####[facility] LABCLIA [id number] [place] [address] [place] MCHC (RBC) [Mass/Vol] 32.6 g/dL Normal 30.5-36.0 [facility] Comment on above: Order Comment: Speci men Type: BLOOD SPECIMENOrdering Facility: [facility] Address: [address] [place] [address] Performed By: #### 5 8410-2 ####[facility] LABCLIA [id number] [place] [address] [place] MCV (RBC) [Entitic vol] 89.8 fL Normal 80.0-100.0 [facility] Comment on above: Order Comment: Speci men Type: BLOOD SPECIMENOrdering Facility: [facility] Address: [address] [place] [address] Performed By: #### 5 8410-2 ####[facility] LABIA [id number] [place] [address] [place] Nucleated RBC (Bld) [#/Vol] 10*3/uL Normal <0.01 [facility] Comment on above: Order Comment: Speci men Type: BLOOD SPECIMENOrdering Facility: [facility] Address: [address] [place] [address] Performed By: #### 5 8410-2 ####[facility] LABCLIA [id number] [place] [address] [place] Platelet mean volume (Bld) [Entitic vol] 10.5 fL Normal 9.0-12.7 [facility] Comment on above: Order Comment: Speci men Type: BLOOD SPECIMENOrdering Facility: [facility] Address: [address] [place] [address] Performed By: #### 5 8410-2 ####[facility] LABIA [id number] [place] [address] [place] Platelets (Bld) [#/Vol] 212 10*3/uL Normal 150-400 [facility] Comment on above: Order Comment: Speci men Type: BLOOD SPECIMENOrdering Facility: [facility] Address: [address] [place] [address] Performed By: #### 5 8410-2 ####[facility] LABIA [id number] [place] [address] [place] RBC (Bld) [#/Vol] 3.24 10*6/uL Low 4.20-6.00 [facility] Comment on above: Order Comment: Speci men Type: BLOOD SPECIMENOrdering Facility: [facility] Address: [address] [place] [address] Performed By: #### 5 8410-2 ####[facility] LABIA [id number] [place] [address] [place] WBC (Bld) [#/Vol] 6.89 10*3/uL Normal 3.70-11.00 [facility] Comment on above: Order Comment: Speci men Type: BLOOD SPECIMENOrdering Facility: [facility] Address: [address] [place] [address] Performed By: #### 5 8410-2 ####[facility] LABIA [id number] [place] [address] [place] CONSULTon 10-23-2024 CONSULT Normal [facility] Comprehensive metabolic 2000 panelon 10-23-2024 Albumin [Mass/Vol] 4.1 g/dL Normal 3.9-4.9 [facility] Comment on above: Order Comment: Speci men Type: BLOOD SPECIMENOrdering Facility: [facility] Address: [address] [place] [address] Performed By: #### 1 9123-9, 21831-0 ####[facility] LABCLIA [id number] [place] [address] [place] ALP [Catalytic activity/Vol] 47 U/L Normal 38-113 [facility] Comment on above: Order Comment: Speci men Type: BLOOD SPECIMENOrdering Facility: [facility] Address: [address] [place] [address] Performed By: #### 1 23-9, 40450-8 ####[facility] LABCLIA [id number] [place] [address] [place] ALT [Catalytic activity/Vol] 22 U/L Normal 10-54 [facility] Comment on above: Order Comment: Speci men Type: BLOOD SPECIMENOrdering Facility: [facility] Address: [address] [place] [address] Performed By: #### 1 23-9, 31574-9 ####[facility] LABCLIA [id number] [place] [address] [place] Anion gap [Moles/Vol] 10 mmol/L Normal 8-15 [facility] Comment on above: Order Comment: Speci men Type: BLOOD SPECIMENOrdering Facility: [facility] Address: [address] [place] [address] Performed By: #### 1 23-9, 95220-8 ####[facility] LABCLIA [id number] [place] [address] [place] AST [Catalytic activity/Vol] 30 U/L Normal 14-40 [facility] Comment on above: Order Comment: Speci men Type: BLOOD SPECIMENOrdering Facility: [facility] Address: [address] [place] [address] Performed By: #### 1 9123-9, 64691-7 ####[facility] LABCLIA [id number] [place] [address] [place] Bilirubin [Mass/Vol] 0.3 mg/dL Normal 0.2-1.3 [facility] Comment on above: Order Comment: Speci men Type: BLOOD SPECIMENOrdering Facility: [facility] Address: [address] [place] [address] Performed By: #### 1 9123-9, 42099-7 ####[facility] LABCLIA [id number] [place] [address] [place] Calcium [Mass/Vol] 9.2 mg/dL Normal 8.5-10.2 [facility] Comment on above: Order Comment: Speci men Type: BLOOD SPECIMENOrdering Facility: [facility] Address: [address] [place] [address] Performed By: #### 1 9123-9, 98064-1 ####[facility] LABCLIA [id number] [place] [address] [place] Chloride [Moles/Vol] 103 mmol/L Normal 98-107 [facility] Comment on above: Order Comment: Speci men Type: BLOOD SPECIMENOrdering Facility: [facility] Address: [address] [place] [address] Performed By: #### 1 9123-9, 25114-4 ####[facility] LABCLIA [id number] [place] [address] [place] CO2 [Moles/Vol] 24 mmol/L Normal 22-30 [facility] Comment on above: Order Comment: Speci men Type: BLOOD SPECIMENOrdering Facility: [facility] Address: [address] [place] [address] Performed By: #### 1 9123-9, 82201-7 ####[facility] LABCLIA [id number] [place] [id number] [place] Creatinine [Mass/Vol] 1.87 mg/dL High 0.73-1.22 [facility] Comment on above: Order Comment: Jose Cruz johnson Type: BLOOD SPECIMENOrdering Facility: [facility] Address: [address] [place] [address] Performed By: #### 1 9123-9, 67393-0 ####[facility] LABCLIA [id number] [place] [address] [place] Creatinine and Glomerular filtration rate.predicted panel (S/P/Bld) 38 mL/min/1.73m??? Low >=60 [facility] Comment on above: Order Comment: Jose Cruz johnson Type: BLOOD SPECIMENOrdering Facility: [facility] Address: [address] [place] [address] Result Comment: Mary Kay mated Glomerular Filtration Rate (eGFR) is calculated using the 2020 CKD-EPI creatinine equation. This equation utilizes serum creatinine, sex, and age as parameters. The creatinine assay has traceable calibration to isotope dilution-mass spectrometry. Refer to KDIGO guidelines for clinical interpretation. In patients with unstable renal function, e.g. those with acute kidney injury, the eGFR may not accurately reflect actual GFR. Performed By: #### 1 9123-9, 14948-7 ####[facility] LABCLIA [id number] [place] [address] [place] Glucose [Mass/Vol] 90 mg/dL Normal 74-99 [facility] Comment on above: Order Comment: Jose Cruz johnson Type: BLOOD SPECIMENOrdering Facility: [facility] Address: [address] [place] [address] Result Comment: The [place] Diabetes Association (ADA) provides guidance for cutoff values for fasting glucose and random glucose. The ADA defines fasting as no caloric intake for at least 8 hours. Fasting plasma glucose results between 100 to 125 mg/dL indicate increased risk for diabetes (prediabetes).Fasting plasma glucose results greater than or equal to 126 mg/dL meet the criteria for diagnosis of diabetes. In the absence of unequivocal hyperglycemia, results should be confirmed by repeat testing. In a patient with classic symptoms of hyperglycemia or hyperglycemic crisis, random plasma glucose results greater than or equal to 200 mg/dL meet the criteria for diagnosis of diabetes.Reference: Standards of Medical Care in Diabetes 2016, [place] [employer]. Diabetes Care. 2016.39(Suppl 1). Performed By: #### 1 9123-9, 85010-4 ####[facility] LABCLIA [id number] [place] [address] [place] Potassium [Moles/Vol] 4.8 mmol/L Normal 3.7-5.1 [facility] Comment on above: Order Comment: Speci men Type: BLOOD SPECIMENOrdering Facility: [facility] Address: [address] [place] [address] Performed By: #### 1 23-9, 02176-9 ####[facility] LABIA [id number] [place] [address] [place] Protein [Mass/Vol] 7.0 g/dL Normal 6.3-8.0 [facility] Comment on above: Order Comment: Speci men Type: BLOOD SPECIMENOrdering Facility: [facility] Address: [address] [place] [address] Performed By: #### 1 239, 80516-1 ####[facility] LABIA [id number] [place] [address] [place] Sodium [Moles/Vol] 137 mmol/L Normal 136-144 [facility] Comment on above: Order Comment: Speci men Type: BLOOD SPECIMENOrdering Facility: [facility] Address: [address] [place] [address] Performed By: #### 1 23-9, 02171-9 ####[facility] LABIA [id number] [place] [id number] [place] Urea nitrogen [Mass/Vol] 25 mg/dL High 9-24 [facility] Comment on above: Order Comment: Speci men Type: BLOOD SPECIMENOrdering Facility: [facility] Address: [address] [place] [address] Performed By: #### 1 239, 66213-5 ####[facility] LABCLIA [id number] [place] [address] [place] Creat ?Tm Ur-mCncon 10-23-19 25 Creatinine (U) [Mass/Vol] 35.0 mg/dL Normal 20.0-300.0 [facility] Comment on above: Order Comment: Speci men Type: URINE SPECIMENOrdering Facility: [facility] Address: [address] [place] [address] Performed By: #### 2 695-5, 2890-2, 05518-2, 62731-7 ####[facility] LABIA [id number] [place] [address] [place] Magnesium SerPl-ncon 10-23 Magnesium [Mass/Vol] 2.1 mg/dL Normal 1.7-2.3 [facility] Comment on above: Order Comment: Speci men Type: BLOOD SPECIMENOrdering Facility: [facility] Address: [address] [place] [address] Performed By: #### 1 9123-9, 30207-7 ####[facility] [id number] [place] [address] [place] NM PET/CT CARD PERF REST/STR ESSon 10-23-2024 NM PET/CT CARD PERF REST/STRESS Normal [facility] NURSING PROGon 10-23-2024 NURSING PROG Normal [facility] Osmolality Uron 10-23-2024 Osmolality (U) [Osmolality] 237 mosm/kg Normal 50-1200 [facility] Comment on above: Order Comment: Speci men Type: URINE SPECIMENOrdering Facility: [facility] Address: [address] [place] [address] Performed By: #### 2 695-5, 2890-2, 59352-6, 75119-3 ####[facility] LABIA [id number] [place] [address] [place] PTT, ANTICOAGULANT THERAPYon 10-23-2024 aPTT Coag (PPP) [Time] 47.4 s High 23.0-32.4 [facility] Comment on above: Order Comment: Speci men Type: BLOOD SPECIMENOrdering Facility: [facility] Address: [address] [place] [address] Performed By: #### P TTAC ####[facility] LABCLIA [id number] [place] [address] [place] aPTT Coag (PPP) [Time] 84.5 s High 23.0-32.4 [facility] Comment on above: Order Comment: Speci men Type: BLOOD SPECIMENOrdering Facility: [facility] Address: [address] [place] [address] Performed By: #### P TTAC ####[facility] LABCLIA [id number] [place] [address] [place] aPTT Coag (PPP) [Time] 41.5 s High 23.0-32.4 [facility] Comment on above: Order Comment: Speci men Type: BLOOD SPECIMENOrdering Facility: [facility] Address: [address] [place] [address] Performed By: #### P TTAC ####[facility] LABCLIA [id number] [place] [address] [place] Prot/Creat Uron 10-23-2024 Protein/Creatinine (U) [Mass ratio] 0.17 mg/mg High <0.15 [facility] Comment on above: Order Comment: Speci men Type: URINE SPECIMENOrdering Facility: [facility] Address: [address] [place] [address] Result Comment: Adul t Proteinuria Categories:<0.15 mg/mg is considered normal to mildly increased0.15 - 0.50 mg/mg is considered moderately increased>0.50 mg/mg is considered severely increasedKDIGO. (2013). KDIGO 2012 Clinical Practice Guideline for the Evaluation and Management of Chronic Kidney Disease. Official Journal of the International Society of Nephrology, 3(1), 1-150. Performed By: #### 2 695-5, 2890-2, 56922-8, 12467-9 ####[facility] LABCLIA [id number] [place] [id number] [place] Protein/Creatinine (U) [Mass ratio]on 10-23-2024 Protein (U) [Mass/Vol] 6 mg/dL Normal 0-20 [facility] Comment on above: Order Comment: Speci men Type: URINE SPECIMENOrdering Facility: [facility] Address: [address] [place] [address] Performed By: #### 2 695-5, 2890-2, 43965-0, 40210-6 ####[facility] LABCLIA [id number] [place] [address] [place] Sodium ?Tm Ur-sCncon 025 Sodium Unsp time (U) [Moles/Vol] 52 mmol/L Normal 14-216 [facility] Comment on above: Order Comment: Speci men Type: URINE SPECIMENOrdering Facility: [facility] Address: [address] [place] [address] Performed By: #### 2 695-5, 2890-2, 33876-0, 66031-1 ####[facility] LABIA [id number] [place] [address] [place] CBC panel Auto (Bld)on 10-22 Erythrocyte distribution width (RBC) [Ratio] 12.3 % Normal 11.5-15.0 [facility] Comment on above: Order Comment: Speci men Type: BLOOD SPECIMENOrdering Facility: [facility] Address: [facility] [place] [address] Performed By: #### 5 8410-2, 22974-6 ####[facility] LABCLIA [id number] [place] [address] [place] Hematocrit (Bld) [Volume fraction] 28.3 % Low 39.0-51.0 [facility] Comment on above: Order Comment: Speci men Type: BLOOD SPECIMENOrdering Facility: [facility] Address: [address] [place] [address] Performed By: #### 5 8410-2, 28934-1 ####[facility] LABCLIA [id number] [place] [address] [place] Hemoglobin (Bld) [Mass/Vol] 8.9 g/dL Low 13.0-17.0 [facility] Comment on above: Order Comment: Speci men Type: BLOOD SPECIMENOrdering Facility: [facility] Address: [address] [place] [address] Performed By: #### 5 8410-2, 24424-1 ####[facility] LABCLIA [id number] [place] [address] [place] MCH (RBC) [Entitic mass] 29.4 pg Normal 26.0-34.0 [facility] Comment on above: Order Comment: Speci men Type: BLOOD SPECIMENOrdering Facility: [facility] Address: [address] [place] [address] Performed By: #### 5 8410-2, 74308-3 ####[facility] LABCLIA [id number] [place] [address] [place] MCHC (RBC) [Mass/Vol] 31.4 g/dL Normal 30.5-36.0 [facility] Comment on above: Order Comment: Speci men Type: BLOOD SPECIMENOrdering Facility: [facility] Address: [address] [place] [address] Performed By: #### 5 8410-2, 15730-7 ####[facility] LABCLIA [id number] [place] [address] [place] MCV (RBC) [Entitic vol] 93.4 fL Normal 80.0-100.0 [facility] Comment on above: Order Comment: Speci men Type: BLOOD SPECIMENOrdering Facility: [facility] Address: [address] [place] [address] Performed By: #### 5 8410-2, 00320-4 ####[facility] LABIA [id number] [place] [address] [place] Nucleated RBC (Bld) [#/Vol] 10*3/uL Normal <0.01 [facility] Comment on above: Order Comment: Speci men Type: BLOOD SPECIMENOrdering Facility: [facility] Address: [address] [place] [address] Performed By: #### 5 8410-2, 46723-4 ####[facility] LABIA [id number] [place] [address] [place] Platelet mean volume (Bld) [Entitic vol] 10.5 fL Normal 9.0-12.7 [facility] Comment on above: Order Comment: Speci men Type: BLOOD SPECIMENOrdering Facility: [facility] Address: [address] [place] [address] Performed By: #### 5 8410-2, 14391-4 ####[facility] LABIA [id number] [place] [address] [place] Platelets (Bld) [#/Vol] 191 10*3/uL Normal 150-400 [facility] Comment on above: Order Comment: Speci men Type: BLOOD SPECIMENOrdering Facility: [facility] Address: [address] [place] [address] Performed By: #### 5 8410-2, 04668-5 ####[facility] LABIA [id number] [place] [address] [place] RBC (Bld) [#/Vol] 3.03 10*6/uL Low 4.20-6.00 [facility] Comment on above: Order Comment: Speci men Type: BLOOD SPECIMENOrdering Facility: [facility] Address: [address] [place] [address] Performed By: #### 5 8410-2, 05495-6 ####[facility] LABCLIA [id number] [address] [address] [place] WBC (Bld) [#/Vol] 7.57 10*3/uL Normal 3.70-11.00 [facility] Comment on above: Order Comment: Speci men Type: BLOOD SPECIMENOrdering Facility: [facility] Address: [address] [place] [address] Performed By: #### 5 8410-2, 88613-6 ####[facility] LABIA [id number] [place] [address] [place] Comprehensive metabolic 2000 panelon 10-22-2024 Albumin [Mass/Vol] 3.6 g/dL Low 3.9-4.9 [facility] Comment on above: Order Comment: Speci men Type: BLOOD SPECIMENOrdering Facility: [facility] Address: [address] [place] [address] Performed By: #### 2 4323-8, ####[facility] LABIA [id number] [place] [address] [place] ALP [Catalytic activity/Vol] 45 U/L Normal 38-113 [facility] Comment on above: Order Comment: Speci men Type: BLOOD SPECIMENOrdering Facility: [facility] Address: [address] [place] [address] Performed By: #### 2 4323-8, ####[facility] LABIA [id number] [place] [id number] [place] ALT [Catalytic activity/Vol] 10 U/L Normal 10-54 [facility] Comment on above: Order Comment: Speci men Type: BLOOD SPECIMENOrdering Facility: [facility] Address: [address] [place] [address] Performed By: #### 2 4323-8, ####[facility] LABCLIA [id number] [place] [id number] [place] Anion gap [Moles/Vol] 12 mmol/L Normal 8-15 [facility] Comment on above: Order Comment: Speci men Type: BLOOD SPECIMENOrdering Facility: [facility] Address: [address] [place] [address] Performed By: #### 2 4323-8, ####[facility] LABCLIA [id number] [place] [address] [place] AST [Catalytic activity/Vol] 14 U/L Normal 14-40 [facility] Comment on above: Order Comment: Speci men Type: BLOOD SPECIMENOrdering Facility: [facility] Address: [address] [place] [address] Performed By: #### 2 4328, ####[facility] LABCLIA [id number] [place] [address] [place] Bilirubin [Mass/Vol] 0.3 mg/dL Normal 0.2-1.3 [facility] Comment on above: Order Comment: Speci men Type: BLOOD SPECIMENOrdering Facility: [facility] Address: [address] [place] [address] Performed By: #### 2 4323-8, ####[facility] LABCLIA [id number] [place] [address] [place] Calcium [Mass/Vol] 8.8 mg/dL Normal 8.5-10.2 [facility] Comment on above: Order Comment: Speci men Type: BLOOD SPECIMENOrdering Facility: [facility] Address: [address] [place] [address] Performed By: #### 2 4323-8, ####[facility] LABCLIA [id number] [place] [address] [place] Chloride [Moles/Vol] 102 mmol/L Normal 98-107 [facility] Comment on above: Order Comment: Speci men Type: BLOOD SPECIMENOrdering Facility: [facility] Address: [address] [place] [address] Performed By: #### 2 4323-8, ####[facility] LABCLIA [id number] [place] [id number] [place] CO2 [Moles/Vol] 22 mmol/L Normal 22-30 [facility] Comment on above: Order Comment: Speci men Type: BLOOD SPECIMENOrdering Facility: [facility] Address: [address] [place] [address] Performed By: #### 2 4323-8, ####[facility] LABCLIA [id number] [place] [address] [place] Creatinine [Mass/Vol] 1.74 mg/dL High 0.73-1.22 [facility] Comment on above: Order Comment: Speci men Type: BLOOD SPECIMENOrdering Facility: [facility] Address: [address] [place] [address] Performed By: #### 2 4323-8, ####[facility] LABIA [id number] [place] [address] [place] Creatinine and Glomerular filtration rate.predicted panel (S/P/Bld) 41 mL/min/1.73m??? Low >=60 [facility] Comment on above: Order Comment: Speci men Type: BLOOD SPECIMENOrdering Facility: [facility] Address: [address] [place] [address] Result Comment: Mary Kay mated Glomerular Filtration Rate (eGFR) is calculated using the 2020 CKD-EPI creatinine equation. This equation utilizes serum creatinine, sex, and age as parameters. The creatinine assay has traceable calibration to isotope dilution-mass spectrometry. Refer to KDIGO guidelines for clinical interpretation. In patients with unstable renal function, e.g. those with acute kidney injury, the eGFR may not accurately reflect actual GFR. Performed By: #### 2 4323-8, ####[facility] LABCLIA [id number] [place] [address] [place] Glucose [Mass/Vol] 148 mg/dL High 74-99 [facility] Comment on above: Order Comment: Speci men Type: BLOOD SPECIMENOrdering Facility: [facility] Address: [address] [place] [address] Result Comment: The [place] Diabetes [employer] (ADA) provides guidance for cutoff values for fasting glucose and random glucose. The ADA defines fasting as no caloric intake for at least 8 hours. Fasting plasma glucose results between 100 to 125 mg/dL indicate increased risk for diabetes (prediabetes).Fasting plasma glucose results greater than or equal to 126 mg/dL meet the criteria for diagnosis of diabetes. In the absence of unequivocal hyperglycemia, results should be confirmed by repeat testing. In a patient with classic symptoms of hyperglycemia or hyperglycemic crisis, random plasma glucose results greater than or equal to 200 mg/dL meet the criteria for diagnosis of diabetes.Reference: Standards of Medical Care in Diabetes 2016, [place] [employer]. Diabetes Care. 2016.39(Suppl 1). Performed By: #### 2 4323-8, ####[facility] LABCLIA [id number] [place] [address] [place] Potassium [Moles/Vol] 5.1 mmol/L Normal 3.7-5.1 [facility] Comment on above: Order Comment: Speci men Type: BLOOD SPECIMENOrdering Facility: [facility] Address: [address] [place] [address] Performed By: #### 2 4323-8, ####[facility] LABIA [id number] [place] [id number] [place] Protein [Mass/Vol] 6.4 g/dL Normal 6.3-8.0 [facility] Comment on above: Order Comment: Speci men Type: BLOOD SPECIMENOrdering Facility: [facility] Address: [address] [place] [address] Performed By: #### 2 4323-8, ####[facility] LABCLIA [id number] [place] [id number] [place] Sodium [Moles/Vol] 136 mmol/L Normal 136-144 [facility] Comment on above: Order Comment: Speci men Type: BLOOD SPECIMENOrdering Facility: [facility] Address: [address] [place] [address] Performed By: #### 2 4323-8, ####[facility] LABCLIA [id number] [place] [address] [place] Urea nitrogen [Mass/Vol] 30 mg/dL High 9-24 [facility] Comment on above: Order Comment: Speci men Type: BLOOD SPECIMENOrdering Facility: [facility] Address: [address] [place] [address] Performed By: #### 2 4323-8, ####[facility] LABCLIA [id number] [place] [id number] [place] Magnesium SerPl-mCncon 10-22 Magnesium [Mass/Vol] 2.2 mg/dL Normal 1.7-2.3 [facility] Comment on above: Order Comment: Speci men Type: BLOOD SPECIMENOrdering Facility: [facility] Address: [address] [place] [address] Performed By: #### 2 4323-8, ####[facility] LABCLIA [id number] [place] [id number] [place] PTT, ANTICOAGULANT THERAPYon 10-22-2024 aPTT Coag (PPP) [Time] 51.0 s High 23.0-32.4 [facility] Comment on above: Order Comment: Speci men Type: BLOOD SPECIMENOrdering Facility: [facility] Address: [address] [place] [address] Performed By: #### P TTAC ####[facility] LABCLIA [id number] [place] [id number] [place] Retics #on 10-22-2024 Reticulocytes (Bld) [#/Vol] 0.56128 10*3/uL Normal 0.018-0.100 [facility] Comment on above: Order Comment: Speci men Type: BLOOD SPECIMENOrdering Facility: [facility] Address: [address] [place] [address] Performed By: #### 5 8410-2, 18938-0 ####[facility] LABCLIA [id number] [place] [address] [place] Reticulocytes (Bld) [#/Vol]o n 10-22-2024 Reticulocytes/100 RBC (Bld) 1.7 % Normal 0.4-2.0 [facility] Comment on above: Order Comment: Speci men Type: BLOOD SPECIMENOrdering Facility: [facility] Address: [address] [place] [address] Performed By: #### 5 8410-2, 74519-2 ####[facility] LABIA [id number] [place] [address] [place] CBC panel Auto (Bld)on 10-21 Erythrocyte distribution width (RBC) [Ratio] 12.5 % Normal 11.5-15.0 [facility] Comment on above: Order Comment: Speci men Type: BLOOD SPECIMENOrdering Facility: [facility] Address: [address] [place] [address] Performed By: #### 5 8410-2 ####[facility] LABIA [id number] [address] [place] Hematocrit (Bld) [Volume fraction] 28.8 % Low 39.0-51.0 [facility] Comment on above: Order Comment: Speci men Type: BLOOD SPECIMENOrdering Facility: [facility] Address: [address] [place] [address] Performed By: #### 5 8410-2 ####[facility] LABIA [id number] [place] [address] [place] Hemoglobin (Bld) [Mass/Vol] 9.2 g/dL Low 13.0-17.0 [facility] Comment on above: Order Comment: Speci men Type: BLOOD SPECIMENOrdering Facility: [facility] Address: [address] [place] [address] Performed By: #### 5 8410-2 ####[facility] LABIA [id number] [place] [address] [place] MCH (RBC) [Entitic mass] 29.3 pg Normal 26.0-34.0 [facility] Comment on above: Order Comment: Speci men Type: BLOOD SPECIMENOrdering Facility: [facility] Address: [address] [place] [address] Performed By: #### 5 8410-2 ####[facility] [id number] [place] [address] [place] MCHC (RBC) [Mass/Vol] 31.9 g/dL Normal 30.5-36.0 [facility] Comment on above: Order Comment: Speci men Type: BLOOD SPECIMENOrdering Facility: [facility] Address: [address] [place] [address] Performed By: #### 5 8410-2 ####[facility] LABIA [id number] [place] [address] [place] MCV (RBC) [Entitic vol] 91.7 fL Normal 80.0-100.0 [facility] Comment on above: Order Comment: Speci men Type: BLOOD SPECIMENOrdering Facility: [facility] Address: [address] [place] [address] Performed By: #### 5 8410-2 ####[facility] LABIA [id number] [place] [address] [place] Nucleated RBC (Bld) [#/Vol] 10*3/uL Normal <0.01 [facility] Comment on above: Order Comment: Speci men Type: BLOOD SPECIMENOrdering Facility: [facility] Address: [address] [place] [address] Performed By: #### 5 8410-2 ####[facility] LABCLIA [id number] [place] [address] [place] Platelet mean volume (Bld) [Entitic vol] 10.7 fL Normal 9.0-12.7 [facility] Comment on above: Order Comment: Speci men Type: BLOOD SPECIMENOrdering Facility: [facility] Address: [address] [place] [address] Performed By: #### 5 8410-2 ####[facility] LABCLIA [id number] [place] [address] [place] Platelets (Bld) [#/Vol] 186 10*3/uL Normal 150-400 [facility] Comment on above: Order Comment: Speci men Type: BLOOD SPECIMENOrdering Facility: [facility] Address: [address] [place] [address] Performed By: #### 5 8410-2 ####[facility] LABCLIA [id number] [place] [address] [place] RBC (Bld) [#/Vol] 3.14 10*6/uL Low 4.20-6.00 [facility] Comment on above: Order Comment: Speci men Type: BLOOD SPECIMENOrdering Facility: [facility] Address: [address] [place] [address] Performed By: #### 5 8410-2 ####[facility] LABCLIA [id number] [place] [address] [place] WBC (Bld) [#/Vol] 7.74 10*3/uL Normal 3.70-11.00 [facility] Comment on above: Order Comment: Speci men Type: BLOOD SPECIMENOrdering Facility: [facility] Address: [address] [place], [place] [address] Performed By: #### 5 8410-2 ####[facility] LABCLIA [id number] [address] [address] [place] Comprehensive metabolic 2000 panelon 10-21-2024 Albumin [Mass/Vol] 3.5 g/dL Low 3.9-4.9 [facility] Comment on above: Order Comment: Speci men Type: BLOOD SPECIMENOrdering Facility: [facility] Address: [address] [place] [address] Performed By: #### 2 4323-8, ####[facility] LABCLIA [id number] [place] [address] [place] ALP [Catalytic activity/Vol] 46 U/L Normal 38-113 [facility] Comment on above: Order Comment: Speci men Type: BLOOD SPECIMENOrdering Facility: [facility] Address: [address] [place], [place] [address] Performed By: #### 2 4323-8, ####[facility] LABCLIA [id number] [place] [address] [place] ALT [Catalytic activity/Vol] 11 U/L Normal 10-54 [facility] Comment on above: Order Comment: Speci men Type: BLOOD SPECIMENOrdering Facility: [facility] Address: [address] [id number] Performed By: #### 2 4323-8, ####[facility] LABCLIA [id number] [place] [id number] [place] Anion gap [Moles/Vol] 11 mmol/L Normal 8-15 [facility] Comment on above: Order Comment: Speci men Type: BLOOD SPECIMENOrdering Facility: [facility] Address: [address] [place], [place] [address] Performed By: #### 2 4323-8, ####[facility] LABCLIA [id number] [place] [id number] [place] AST [Catalytic activity/Vol] 15 U/L Normal 14-40 [facility] Comment on above: Order Comment: Speci men Type: BLOOD SPECIMENOrdering Facility: [facility] Address: [address] [place] [address] Performed By: #### 2 432-8, ####[facility] LABCLIA [id number] [place] [address] [place] Bilirubin [Mass/Vol] 0.3 mg/dL Normal 0.2-1.3 [facility] Comment on above: Order Comment: Speci men Type: BLOOD SPECIMENOrdering Facility: [facility] Address: [address] [place] [address] Performed By: #### 2 4328, ####[facility] LABCLIA [id number] [place] [address] [place] Calcium [Mass/Vol] 8.8 mg/dL Normal 8.5-10.2 [facility] Comment on above: Order Comment: Speci men Type: BLOOD SPECIMENOrdering Facility: [facility] Address: [address] [place] [address] Performed By: #### 2 4328, ####[facility] LABCLIA [id number] [place] [id number] [place] Chloride [Moles/Vol] 101 mmol/L Normal 98-107 [facility] Comment on above: Order Comment: Speci men Type: BLOOD SPECIMENOrdering Facility: [facility] Address: [address] [place] [address] Performed By: #### 2 4323-8, ####[facility] LABCLIA [id number] [place] [id number] [place] CO2 [Moles/Vol] 24 mmol/L Normal 22-30 [facility] Comment on above: Order Comment: Speci men Type: BLOOD SPECIMENOrdering Facility: [facility] Address: [address] [place] [address] Performed By: #### 2 4323-8, ####[facility] LABCLIA [id number] [place] [address] [place] Creatinine [Mass/Vol] 1.96 mg/dL High 0.73-1.22 [facility] Comment on above: Order Comment: Speci men Type: BLOOD SPECIMENOrdering Facility: [facility] Address: [address] [place] [address] Performed By: #### 2 4328, ####[facility] LABCLIA [id number] [address] STATES OF [facility] Creatinine and Glomerular filtration rate.predicted panel (S/P/Bld) 36 mL/min/1.73m??? Low >=60 [facility] Comment on above: Order Comment: Speci men Type: BLOOD SPECIMENOrdering Facility: [facility] Address: [address] [place] [address] Result Comment: Mary Kay mated Glomerular Filtration Rate (eGFR) is calculated using the 2020 CKD-EPI creatinine equation. This equation utilizes serum creatinine, sex, and age as parameters. The creatinine assay has traceable calibration to isotope dilution-mass spectrometry. Refer to KDIGO guidelines for clinical interpretation. In patients with unstable renal function, e.g. those with acute kidney injury, the eGFR may not accurately reflect actual GFR. Performed By: #### 2 4323-8, ####[facility] LABCLIA [id number] [place] [address] [place] Glucose [Mass/Vol] 154 mg/dL High 74-99 [facility] Comment on above: Order Comment: Speci men Type: BLOOD SPECIMENOrdering Facility: [facility] Address: [address] [place] [address] Result Comment: The [place] Diabetes Association (ADA) provides guidance for cutoff values for fasting glucose and random glucose. The ADA defines fasting as no caloric intake for at least 8 hours. Fasting plasma glucose results between 100 to 125 mg/dL indicate increased risk for diabetes (prediabetes).Fasting plasma glucose results greater than or equal to 126 mg/dL meet the criteria for diagnosis of diabetes. In the absence of unequivocal hyperglycemia, results should be confirmed by repeat testing. In a patient with classic symptoms of hyperglycemia or hyperglycemic crisis, random plasma glucose results greater than or equal to 200 mg/dL meet the criteria for diagnosis of diabetes.Reference: Standards of Medical Care in Diabetes 2016, [place] Diabetes Association. Diabetes Care. 2016.39(Suppl 1). Performed By: #### 2 4323-8, ####[facility] LABCLIA [id number] [place] [address] [place] Potassium [Moles/Vol] 4.8 mmol/L Normal 3.7-5.1 [facility] Comment on above: Order Comment: Speci men Type: BLOOD SPECIMENOrdering Facility: [facility] Address: [address] [place] [address] Performed By: #### 2 3-8, ####[facility] LABCLIA [id number] [place] [address] [place] Protein [Mass/Vol] 6.1 g/dL Low 6.3-8.0 [facility] Comment on above: Order Comment: Speci men Type: BLOOD SPECIMENOrdering Facility: [facility] Address: [address] [place] [address] Performed By: #### 2 4323-8, ####[facility] LABIA [id number] [place] [address] [place] Sodium [Moles/Vol] 136 mmol/L Normal 136-144 [facility] Comment on above: Order Comment: Speci men Type: BLOOD SPECIMENOrdering Facility: [facility] Address: [address] [place] [address] Performed By: #### 2 4323-8, 56197-0 ####[facility] LABCLIA [id number] [place] [address] [place] Urea nitrogen [Mass/Vol] 35 mg/dL High 9-24 [facility] Comment on above: Order Comment: Speci men Type: BLOOD SPECIMENOrdering Facility: [facility] Address: [address] [place] [address] Performed By: #### 2 4323-8, ####[facility] LABIA [id number] [place] [address] [place] Magnesium SerPl-mCncon 10-21 Magnesium [Mass/Vol] 2.3 mg/dL Normal 1.7-2.3 [facility] Comment on above: Order Comment: Speci men Type: BLOOD SPECIMENOrdering Facility: [facility] Address: [address] [place] [address] Performed By: #### 2 4323-8, ####[facility] LABIA [id number] [place] [address] [place] PTT, ANTICOAGULANT THERAPYon 10-21-2024 aPTT Coag (PPP) [Time] 54.1 s High 23.0-32.4 [facility] Comment on above: Order Comment: Speci men Type: BLOOD SPECIMENOrdering Facility: [facility] Address: [address] [place] [address] Performed By: #### P TTAC ####[facility] LABIA [id number] [place] [address] [place] aPTT Coag (PPP) [Time] 53.8 s High 23.0-32.4 [facility] Comment on above: Order Comment: Speci men Type: BLOOD SPECIMENOrdering Facility: [facility] Address: [address] [place] [address] Performed By: #### P TTAC ####[facility] LABCLIA [id number] [place] [address] [place] Prot/Creat Uron 10-21-2024 Protein/Creatinine (U) [Mass ratio] 0.26 mg/mg High <0.15 [facility] Comment on above: Order Comment: Speci men Type: URINE SPECIMENOrdering Facility: [facility] Address: [address] [place] [address] Result Comment: Adul t Proteinuria Categories:<0.15 mg/mg is considered normal to mildly increased0.15 - 0.50 mg/mg is considered moderately increased>0.50 mg/mg is considered severely increasedKDIGO. (2013). KDIGO 2012 Clinical Practice Guideline for the Evaluation and Management of Chronic Kidney Disease. Official Journal of the International Society of Nephrology, 3(1), 1-150. Performed By: #### 2 890-2, 92833-2 ####[facility] LABIA [id number] [place] [address] [place] Protein/Creatinine (U) [Mass ratio]on 10-21-2024 Creatinine (U) [Mass/Vol] 61.9 mg/dL Normal 20.0-300.0 [facility] Comment on above: Order Comment: Speci men Type: URINE SPECIMENOrdering Facility: [facility] Address: [address] [place] [address] Performed By: #### 2 890-2, 40143-5 ####[facility] LABIA [id number] [place] [address] [place] Protein (U) [Mass/Vol] 16 mg/dL Normal 0-20 [facility] Comment on above: Order Comment: Speci men Type: URINE SPECIMENOrdering Facility: [facility] Address: [address] [place] [address] Performed By: #### 2 890-2, 52916-1 ####[facility] LABIA [id number] [place] [address] [place] Sodium ?Tm Ur-sCncon 025 Sodium Unsp time (U) [Moles/Vol] 89 mmol/L Normal 14-216 [facility] Comment on above: Order Comment: Speci men Type: URINE SPECIMENOrdering Facility: [facility] Address: [address] [place] [address] Performed By: #### 2 890-2, 99546-7 ####[facility] LABCLIA [id number] [place] [address] [place] US RENAL ARTERY ROMI [facility]AS LABo n 10-21-2024 [facility] Normal [facility] Bacteria Ur Culton 5 Bacteria identified Cx Nom (U) ORGANISM ID: 1 <10,000 CFU/ml Enterococcus faecalis Insignificant colony count. No further workup. Cephalosporins, clindamycin, and TMP-SMX are not effective for the treatment of enterococcal infections. Normal [facility] Comment on above: Performed By: #### 6 30-4 ####[facility] LABCLIA [id number] [place] [address] [place] CATECHOLAMINES FRAon 025 CATECHOLAMINE INTERPRETATION PLASMA See Note Normal [facility] Comment on above: Order Comment: Speci men Type: BLOOD SPECIMENOrdering Facility: [facility] Address: [address] [place] [address] Result Comment: INTE RPRETIVE INFORMATION: Catecholamines Panel, PlasmaSmall increases in catecholamines (less than 2 times the upperreference limit) are usually the result of physiological stimuli,drugs, or improper specimen collection. Significant elevation ofone or more catecholamines (2 or more times the upper referencelimit) is associated with an increased probability of aneuroendocrine tumor. Measurement of plasma or urine fractionatedmetanephrines provides better diagnostic sensitivity thanmeasurement of catecholamines.Lower catecholamine concentrations are observed in specimenscollected from supine adults.To convert to picograms per milliliter (pg/mL), multiply thereported concentration for Dopamine by 0.153, Epinephrine by0.183, and Norepinephrine by 0.169.Access complete set of age- and/or gender-specific referenceintervals for this test in the [facility] Test Directory(Wayin).This test was developed and its performance characteristicsdetermined by [facility]. It has not been cleared orapproved by the [place] Food and Drug Administration. This test wasperformed in a CLIA certified laboratory and is intended forclinical purposes.Performed By: [facility] [employer] [place], [place] [address] Director: Sandoval Gandhi MD, PhDCLIA Number: [id number] Performed By: #### P LCAT ####[facility]IESCLIA [id number] [place] [address] DOPAMINE <130 Normal <=240 [facility] Comment on above: Order Comment: Speci men Type: BLOOD SPECIMENOrdering Facility: [facility] Address: [address] [place] [address] Result Comment: INTE RPRETIVE INFORMATION: DopamineSeated (15 min) less than or equal to 240 pmol/LSupine (30 min) less than or equal to 240 pmol/L Performed By: #### P LCAT ####[facility] LABORATORIESIA [id number] [place] [address] EPINEPHRINE (P) 303 pmol/L Normal <=330 [facility] Comment on above: Order Comment: Speci men Type: BLOOD SPECIMENOrdering Facility: [facility] Address: [address] [place] [address] Result Comment: INTE RPRETIVE INFORMATION:EpinephrineSeated (15 min) less than or equal to 330 pmol/LSupine (30 min) less than or equal to 265 pmol/L Performed By: #### P LCAT ####[facility] LABORATORIESCLIA [id number] [place] [address] NOREPINEPHRINE 1868 pmol/L Normal 0031-9545 [facility] Comment on above: Order Comment: Speci men Type: BLOOD SPECIMENOrdering Facility: [facility] Address: [address] [place] [address] Result Comment: INTE RPRETIVE INFORMATION: NorepinephrineSeated (15 min) 1050 - 4800 pmol/LSupine (30 min) 680 - 3100 pmol/L Performed By: #### P LCAT ####[facility] [id number] [place] [address] CBC panel Auto (Bld)on 10-20 Erythrocyte distribution width (RBC) [Ratio] 12.4 % Normal 11.5-15.0 [facility] Comment on above: Order Comment: Speci men Type: BLOOD SPECIMENOrdering Facility: [facility] Address: [address] [place] [address] Performed By: #### 5 8410-2 ####[facility] LABIA [id number] [place] [address] [place] Hematocrit (Bld) [Volume fraction] 31.5 % Low 39.0-51.0 [facility] Comment on above: Order Comment: Speci men Type: BLOOD SPECIMENOrdering Facility: [facility] Address: [address] [place] [address] Performed By: #### 5 8410-2 ####[facility] LABIA [id number] [place] [address] [place] Hemoglobin (Bld) [Mass/Vol] 10.1 g/dL Low 13.0-17.0 [facility] Comment on above: Order Comment: Speci men Type: BLOOD SPECIMENOrdering Facility: [facility] Address: [address] [place] [address] Performed By: #### 5 8410-2 ####[facility] LABIA [id number] [place] [address] [place] MCH (RBC) [Entitic mass] 29.5 pg Normal 26.0-34.0 [facility] Comment on above: Order Comment: Speci men Type: BLOOD SPECIMENOrdering Facility: [facility] Address: [address] [place] [address] Performed By: #### 5 8410-2 ####[facility] LABIA [id number] [place] [address] [place] MCHC (RBC) [Mass/Vol] 32.1 g/dL Normal 30.5-36.0 [facility] Comment on above: Order Comment: Speci men Type: BLOOD SPECIMENOrdering Facility: [facility] Address: [address] [place] [address] Performed By: #### 5 8410-2 ####[facility] LABCLIA [id number] [place] [address] [place] MCV (RBC) [Entitic vol] 92.1 fL Normal 80.0-100.0 [facility] Comment on above: Order Comment: Speci men Type: BLOOD SPECIMENOrdering Facility: [facility] Address: [address] [place] [address] Performed By: #### 5 8410-2 ####[facility] LABCLIA [id number] [place] [address] [place] Nucleated RBC (Bld) [#/Vol] 10*3/uL Normal <0.01 [facility] Comment on above: Order Comment: Speci men Type: BLOOD SPECIMENOrdering Facility: [facility] Address: [address] [place] [address] Performed By: #### 5 8410-2 ####[facility] LABCLIA [id number] [place] [address] [place] Platelet mean volume (Bld) [Entitic vol] 10.4 fL Normal 9.0-12.7 [facility] Comment on above: Order Comment: Speci men Type: BLOOD SPECIMENOrdering Facility: [facility] Address: [address] [place] [address] Performed By: #### 5 8410-2 ####[facility] LABCLIA [id number] [place] [address] [place] Platelets (Bld) [#/Vol] 198 10*3/uL Normal 150-400 [facility] Comment on above: Order Comment: Speci men Type: BLOOD SPECIMENOrdering Facility: [facility] Address: [address] [place] [address] Performed By: #### 5 8410-2 ####[facility] LABCLIA [id number] [place] [address] [place] RBC (Bld) [#/Vol] 3.42 10*6/uL Low 4.20-6.00 [facility] Comment on above: Order Comment: Speci men Type: BLOOD SPECIMENOrdering Facility: [facility] Address: [address] [place] [address] Performed By: #### 5 8410-2 ####[facility] LABIA [id number] [place] [address] [place] WBC (Bld) [#/Vol] 9.34 10*3/uL Normal 3.70-11.00 [facility] Comment on above: Order Comment: Speci men Type: BLOOD SPECIMENOrdering Facility: [facility] Address: [address] [place] [address] Performed By: #### 5 8410-2 ####[facility] LABIA [id number] [place] [address] [place] Comprehensive metabolic 2000 panelon 10-20-2024 Albumin [Mass/Vol] 3.7 g/dL Low 3.9-4.9 [facility] Comment on above: Order Comment: Speci men Type: BLOOD SPECIMENOrdering Facility: [facility] Address: [address] [place] [address] Performed By: #### 1 9123-9, 2777-1, 71707-5 ####[facility] LABIA [id number] [place] [address] [place] ALP [Catalytic activity/Vol] 45 U/L Normal 38-113 [facility] Comment on above: Order Comment: Speci men Type: BLOOD SPECIMENOrdering Facility: [facility] Address: [address] [place] [address] Performed By: #### 1 9123-9, 27703-20, 69953-9 ####[facility] LABCLIA [id number] [place] [address] [place] ALT [Catalytic activity/Vol] 13 U/L Normal 10-54 [facility] Comment on above: Order Comment: Speci men Type: BLOOD SPECIMENOrdering Facility: [facility] Address: [address] [place] [address] Performed By: #### 1 9123-9, 27703-20, 06912-2 ####[facility] LABIA [id number] [place] [address] [place] Anion gap [Moles/Vol] 10 mmol/L Normal 8-15 [facility] Comment on above: Order Comment: Speci men Type: BLOOD SPECIMENOrdering Facility: [facility] Address: [address] [place] [address] Performed By: #### 1 9123-9, 27703-20, 49152-7 ####[facility] LABIA [id number] [place] [address] [place] AST [Catalytic activity/Vol] 19 U/L Normal 14-40 [facility] Comment on above: Order Comment: Speci men Type: BLOOD SPECIMENOrdering Facility: [facility] Address: [address] [place] [address] Performed By: #### 1 9123-9, 27703-20, 22544-9 ####[facility] LABIA [id number] [place] [id number] [place] Bilirubin [Mass/Vol] 0.4 mg/dL Normal 0.2-1.3 [facility] Comment on above: Order Comment: Speci men Type: BLOOD SPECIMENOrdering Facility: [facility] Address: [address] [place] [address] Performed By: #### 1 9123-9, 2776-09, ####[facility] LABCLIA [id number] [facility] [address] [address] [place] Calcium [Mass/Vol] 8.7 mg/dL Normal 8.5-10.2 [facility] Comment on above: Order Comment: Speci men Type: BLOOD SPECIMENOrdering Facility: [facility] Address: [address] [place] [address] Performed By: #### 1 9123-9, 2776-09, ####[facility] LABCLIA [id number] [place] [id number] [place] Chloride [Moles/Vol] 101 mmol/L Normal 98-107 [facility] Comment on above: Order Comment: Speci men Type: BLOOD SPECIMENOrdering Facility: [facility] Address: [address] [place] [address] Performed By: #### 1 9123-9, 2776-09, ####[facility] LABCLIA [id number] [place] [address] [place] CO2 [Moles/Vol] 26 mmol/L Normal 22-30 [facility] Comment on above: Order Comment: Speci men Type: BLOOD SPECIMENOrdering Facility: [facility] Address: [address] [place], [place] [address] Performed By: #### 1 9123-9, 2776-09, ####[facility] LABCLIA [id number] [facility] [address] [address] [place] Creatinine [Mass/Vol] 1.78 mg/dL High 0.73-1.22 [facility] Comment on above: Order Comment: Speci men Type: BLOOD SPECIMENOrdering Facility: [facility] Address: [address] [place], [place] [address] Performed By: #### 1 9123-9, 27703-20, ####[facility] LABCLIA [id number] [address] [place] Creatinine and Glomerular filtration rate.predicted panel (S/P/Bld) 40 mL/min/1.73m??? Low >=60 [facility] Comment on above: Order Comment: Jose Cruz johnson Type: BLOOD SPECIMENOrdering Facility: [facility] Address: [address] [place] [address] Result Comment: Mary Kay mated Glomerular Filtration Rate (eGFR) is calculated using the 2020 CKD-EPI creatinine equation. This equation utilizes serum creatinine, sex, and age as parameters. The creatinine assay has traceable calibration to isotope dilution-mass spectrometry. Refer to KDIGO guidelines for clinical interpretation. In patients with unstable renal function, e.g. those with acute kidney injury, the eGFR may not accurately reflect actual GFR. Performed By: #### 1 9123-9, 2777-1, 35491-0 ####[facility] LABIA [id number] [place] [address] [place] Glucose [Mass/Vol] 110 mg/dL High 74-99 [facility] Comment on above: Order Comment: Jose Cruz johnson Type: BLOOD SPECIMENOrdering Facility: [facility] Address: [address] [place] [address] Result Comment: The [place] [employer] (ADA) provides guidance for cutoff values for fasting glucose and random glucose. The ADA defines fasting as no caloric intake for at least 8 hours. Fasting plasma glucose results between 100 to 125 mg/dL indicate increased risk for diabetes (prediabetes).Fasting plasma glucose results greater than or equal to 126 mg/dL meet the criteria for diagnosis of diabetes. In the absence of unequivocal hyperglycemia, results should be confirmed by repeat testing. In a patient with classic symptoms of hyperglycemia or hyperglycemic crisis, random plasma glucose results greater than or equal to 200 mg/dL meet the criteria for diagnosis of diabetes.Reference: Standards of Medical Care in Diabetes 2016, [place] [employer]. Diabetes Care. 2016.39(Suppl 1). Performed By: #### 1 9123-9, 2777-1, 82497-3 ####[facility] LABIA [id number] [place] [id number] [place] Potassium [Moles/Vol] 4.8 mmol/L Normal 3.7-5.1 [facility] Comment on above: Order Comment: Speci men Type: BLOOD SPECIMENOrdering Facility: [facility] Address: [address] [place] [address] Performed By: #### 1 9123-9, 2777-1, 20354-3 ####[facility] LABCLIA [id number] [place] [address] [place] Protein [Mass/Vol] 6.4 g/dL Normal 6.3-8.0 [facility] Comment on above: Order Comment: Speci men Type: BLOOD SPECIMENOrdering Facility: [facility] Address: [address] [place] [address] Performed By: #### 1 9123-9, 2771, 14638-0 ####[facility] LABCLIA [id number] [place] [address] [place] Sodium [Moles/Vol] 137 mmol/L Normal 136-144 [facility] Comment on above: Order Comment: Speci men Type: BLOOD SPECIMENOrdering Facility: [facility] Address: [address] [place] [address] Performed By: #### 1 9123-9, 27703-20, 85151-7 ####[facility] LABCLIA [id number] [place] [address] [place] Urea nitrogen [Mass/Vol] 31 mg/dL High 9-24 [facility] Comment on above: Order Comment: Speci men Type: BLOOD SPECIMENOrdering Facility: [facility] Address: [address] [place] [address] Performed By: #### 1 9123-9, 277-1, 95836-6 ####[facility] LABCLIA [id number] [place] [id number] [place] ECG COMPLETEon 10-20-2024 ECG COMPLETE Normal [facility] ECG COMPLETE Normal [facility] METANEPHRINES RAN URon 10-20 Metanephrine/Creati nine (U) [Mass ratio] 346 ug/g creat Normal 100-677 [facility] Comment on above: Order Comment: Speci men Type: URINE SPECIMENOrdering Facility: [facility] Address: [address] [place] [address] Result Comment: Urin e Metanephrine test performed by Liquid Chromatography Tandem Mass Spectrometry (LC-MS/MS). Results obtained with different methods or kits cannot be used interchangeably.This test was developed, and its performance characteristics determined by the [facility] Department of Pathology and Laboratory Medicine. It has not been cleared or approved by the FDA. The [facility] Department of Pathology and Laboratory Medicine is regulated under CLIA as qualified to perform high-complexity testing. This test is used for clinical purposes. It should not be regarded as investigational or for research. Performed By: #### L [id number] ####[facility] [id number] [place] [address] [place] Normetanephrine/Cre atinine (U) [Mass ratio] 200 ug/g creat Normal 100-450 [facility] Comment on above: Order Comment: Speci men Type: URINE SPECIMENOrdering Facility: [facility] Address: [address] [place] [address] Performed By: #### L [id number] ####[facility] [id number] [place] [address] [place] Magnesium SerPl-mCncon 10-20 Magnesium [Mass/Vol] 2.4 mg/dL High 1.7-2.3 [facility] Comment on above: Order Comment: Speci men Type: BLOOD SPECIMENOrdering Facility: [facility] Address: [address] [place] [address] Performed By: #### 1 9123-9, 2777-1, 24052-4 ####[facility] LABIA [id number] [place] [address] [place] PT panel Coag (PPP)on 2024 INR Coag (PPP) [Relative time] 1.0 {INR} Normal 0.9-1.3 [facility] Comment on above: Order Comment: Jose Cruz johnson Type: BLOOD SPECIMENOrdering Facility: [facility] Address: [address] [place] [address] Result Comment: Antionette min K Antagonist (VKA) Therapeutic Range: INR 2 to 3 (Target INR of 2.5)Note: For patients treated with VKA drugs, such as warfarin, the [place] [employer] 2012 Guideline recommends a therapeutic INR range of 2 to 3 (target INR of 2.5). This recommendation includes high-risk patients with antiphospholipid syndrome with previous arterial or venous thromboembolism, current-generation mechanical or bioprosthetic aortic heart valve replacement.Note: Patients with mechanical aortic valve replacement and additional risk factors for thromboembolic events (atrial fibrillation, previous thromboembolism, LV dysfunction, hypercoagulable conditions) or an older generation mechanical AVR (i.e., ball in-Cage) or any mechanical MVR should have a INR therapeutic range of 2.5 to 3.5 (target INR of 3).Tannatt GH, et al. Chest 2012, 141:7S-47SNishimura RA, et al. [facility] 2017, 70: 252-289 Performed By: #### 3 4528-0, PTTAC ####[facility] LABCLIA [id number] [place] [address] [place] PT Coag (PPP) [Time] 10.7 s Normal 9.7-13.0 [facility] Comment on above: Order Comment: Jose Cruz johnson Type: BLOOD SPECIMENOrdering Facility: [facility] Address: [address] [place] [id number] Performed By: #### 3 4528-0, PTTAC ####[facility] LABCLIA [id number] [place] [address] [place] PTT, ANTICOAGULANT THERAPYon 10-20-2024 aPTT Coag (PPP) [Time] 36.5 s High 23.0-32.4 [facility] Comment on above: Order Comment: Speci men Type: BLOOD SPECIMENOrdering Facility: [facility] Address: [address] [place] [address] Performed By: #### P TTAC ####[facility] LABCLIA [id number] [place] [address] [place] aPTT Coag (PPP) [Time] 53.0 s High 23.0-32.4 [facility] Comment on above: Order Comment: Speci men Type: BLOOD SPECIMENOrdering Facility: [facility] Address: [address] [place] [address] Performed By: #### P TTAC ####[facility] LABCLIA [id number] [place] [address] [place] aPTT Coag (PPP) [Time] 120.6 s High 23.0-32.4 [facility] Comment on above: Order Comment: Speci men Type: BLOOD SPECIMENOrdering Facility: [facility] Address: [address] [place] [address] Result Comment: Resu lt rechecked.Sample checked for clot. Performed By: #### 3 4528-0, PTTAC ####[facility] LABCLIA [id number] [place] [address] [place] Phosphate SerPl-mCncon 10-20 Phosphate [Mass/Vol] 5.2 mg/dL High 2.7-4.8 [facility] Comment on above: Order Comment: Speci men Type: BLOOD SPECIMENOrdering Facility: [facility] Address: [address] [place] [address] Performed By: #### 1 9123-9, 2777-1, 81765-6 ####[facility] LABCLIA [id number] [place] [address] [place] THERAPY NTon 10-20-2024 THERAPY NT Normal [facility] THERAPY NT Normal [facility] THERAPY NT Normal [facility] Urinalysis complete panel (U )on 10-20-2024 Bacteria LM.HPF (Urine sed) [#/Area] Negative Normal Negative [facility] Comment on above: Order Comment: Speci men Type: URINE SPECIMENOrdering Facility: [facility] Address: [address] [place] [address] Performed By: #### 2 4356-8 ####[facility] LABCLIA [id number] [place] [address] [place] Bilirubin Ql (U) Negative Normal Negative [facility] Comment on above: Order Comment: Speci men Type: URINE SPECIMENOrdering Facility: [facility] Address: [address] [place] [address] Performed By: #### 2 4356-8 ####[facility] LABCLIA [id number] [place] [address] [place] Clarity (Unsp spec) Clear Normal Clear [facility] Comment on above: Order Comment: Speci men Type: URINE SPECIMENOrdering Facility: [facility] Address: [address] [place] [address] Performed By: #### 2 4356-8 ####[facility] LABCLIA [id number] [place] [address] [place] Color (U) Yellow Normal Yellow [facility] Comment on above: Order Comment: Speci men Type: URINE SPECIMENOrdering Facility: [facility] Address: [address] [place] [address] Performed By: #### 2 4356-8 ####[facility] LABCLIA [id number] [place] [address] [place] Epithelial cells LM.HPF (Urine sed) [#/Area] None Seen Normal [facility] Comment on above: Order Comment: Speci men Type: URINE SPECIMENOrdering Facility: [facility] Address: [address] [place] [address] Performed By: #### 2 4356-8 ####[facility] LABCLIA [id number] [place] [address] [place] Glucose Test strip (U) [Mass/Vol] Negative Normal Negative [facility] Comment on above: Order Comment: Speci men Type: URINE SPECIMENOrdering Facility: [facility] Address: [address] [place] [address] Performed By: #### 2 4356-8 ####[facility] LABCLIA [id number] [place] [address] [place] Hemoglobin Ql (U) Negative Normal Negative [facility] Comment on above: Order Comment: Speci men Type: URINE SPECIMENOrdering Facility: [facility] Address: [address] [place] [address] Performed By: #### 2 4356-8 ####[facility] LABCLIA [id number] [place] [address] [place] Hyaline casts (Urine sed) [#/Area] 1-3 /LPF Abnormal 0 /LPF [facility] Comment on above: Order Comment: Speci men Type: URINE SPECIMENOrdering Facility: [facility] Address: [address] [place] [address] Performed By: #### 2 4356-8 ####[facility] LABCLIA [id number] [place] [address] [place] Ketones Ql (U) Negative Normal Negative [facility] Comment on above: Order Comment: Speci men Type: URINE SPECIMENOrdering Facility: [facility] Address: [address] [place] [address] Performed By: #### 2 4356-8 ####[facility] LABCLIA [id number] [place] [address] [place] Leukocyte esterase Test strip Ql (U) Negative Normal Negative [facility] Comment on above: Order Comment: Speci men Type: URINE SPECIMENOrdering Facility: [facility] Address: [address] [place] [address] Performed By: #### 2 4356-8 ####[facility] LABCLIA [id number] [place] [address] [place] Nitrite Ql (U) Negative Normal Negative [facility] Comment on above: Order Comment: Speci men Type: URINE SPECIMENOrdering Facility: [facility] Address: [address] [place] [address] Performed By: #### 2 4356-8 ####[facility] LABIA [id number] [place] [address] [place] pH (U) 6.0 [pH] Normal <8.5 [facility] Comment on above: Order Comment: Speci men Type: URINE SPECIMENOrdering Facility: [facility] Address: [address] [place] [address] Performed By: #### 2 4356-8 ####[facility] LABIA [id number] [place] [address] [place] Protein (U) [Mass/Vol] Negative Normal Negative [facility] Comment on above: Order Comment: Speci men Type: URINE SPECIMENOrdering Facility: [facility] Address: [address] [place] [address] Performed By: #### 2 4356-8 ####[facility] LABIA [id number] [place] [address] [place] RBC LM.HPF (Urine sed) [#/Area] 0-2 /HPF Normal 0-2 /HPF [facility] Comment on above: Order Comment: Speci men Type: URINE SPECIMENOrdering Facility: [facility] Address: [address] [place] [address] Performed By: #### 2 4356-8 ####[facility] LABIA [id number] [place] [address] [place] Specific gravity (U) [Rel density] 1.012 Normal 1.005-1.030 [facility] Comment on above: Order Comment: Speci men Type: URINE SPECIMENOrdering Facility: [facility] Address: [address] [place] [address] Performed By: #### 2 4356-8 ####[facility] LABIA [id number] [place] [address] [place] Urobilinogen Ql (U) 0.2 EU/dL Normal 0.2-1.0 EU/dL [facility] Comment on above: Order Comment: Speci men Type: URINE SPECIMENOrdering Facility: [facility] Address: [address] [place] [address] Performed By: #### 2 4356-8 ####[facility] [id number] [place] [address] [place] WBC LM.HPF (Urine sed) [#/Area] 0-5 /HPF Normal 0-5 /HPF [facility] Comment on above: Order Comment: Speci men Type: URINE SPECIMENOrdering Facility: [facility] Address: [address] [place] [address] Performed By: #### 2 4356-8 ####[facility] [id number] [place] [address] [place] CASE MGT INIT ASSESon 2024 CASE MGT INIT ASSES Normal [facility] ECG COMPLETEon 10-19-2024 ECG COMPLETE Normal [facility] ECHO LIMITEDon 10-19-2024 ECHO LIMITED Normal [facility] Ferritin SerPl-mCncon 2024 Ferritin [Mass/Vol] 70.0 ng/mL Normal 30.3-565.7 [facility] Comment on above: Order Comment: Speci men Type: BLOOD SPECIMENOrdering Facility: [facility] Address: [address] [place] [address] Performed By: #### H STNT, 27539-3, 83446-1, 2276-4 ####[facility] LABIA [id number] [place] [address] [place] Gas and Carbon monoxide pane l (BldV)on 10-19-2024 Base excess Calc (BldV) [Moles/Vol] 4 mmol/L High 0-2 [facility] Comment on above: Order Comment: Speci men Type: VENOUS BLOOD SPECIMENOrdering Facility: [facility] Address: [address] [place] [address] Performed By: #### 2 4344-4 ####[facility] LABIA [id number] [place] [address] [place] Body temperature 98.6 [degF] Normal [facility] Comment on above: Order Comment: Speci men Type: VENOUS BLOOD SPECIMENOrdering Facility: [facility] Address: [address] [place] [address] Performed By: #### 2 4344-4 ####[facility] LABIA [id number] [place] [address] [place] Calcium.ionized (Bld) [Mass/Vol] 1.18 mmol/L Normal 1.08-1.30 [facility] Comment on above: Order Comment: Speci men Type: VENOUS BLOOD SPECIMENOrdering Facility: [facility] Address: [address] [place] [address] Performed By: #### 2 4344-4 ####[facility] LABIA [id number] [place] [address] [place] Calcium.ionized adjusted to pH 7.4 (BldA) [Moles/Vol] 1.17 mmol/L Normal 1.08-1.30 [facility] Comment on above: Order Comment: Speci men Type: VENOUS BLOOD SPECIMENOrdering Facility: [facility] Address: [address] [place] [address] Performed By: #### 2 4344-4 ####[facility] LABIA [id number] [place] [address] [place] Carboxyhemoglobin (BldV) [Mass fraction] 0.9 % Normal 0.0-2.0 [facility] Comment on above: Order Comment: Speci men Type: VENOUS BLOOD SPECIMENOrdering Facility: [facility] Address: [address] [place] [address] Result Comment: Carb oxyhemoglobin Reference Range for Smokers: 2.0-8.0% Performed By: #### 2 4344-4 ####[facility] [id number] [place] [address] [place] CO2 (BldV) [Partial pressure] 49 mm[Hg] Normal 42-55 [facility] Comment on above: Order Comment: Speci men Type: VENOUS BLOOD SPECIMENOrdering Facility: [facility] Address: [address] [place] [address] Performed By: #### 2 4344-4 ####[facility] [id number] [place] [address] [place] Glucose [Mass/Vol] 212 mg/dL High 60-105 [facility] Comment on above: Order Comment: Speci men Type: VENOUS BLOOD SPECIMENOrdering Facility: [facility] Address: [address] [place] [address] Performed By: #### 2 4344-4 ####[facility] LABIA [id number] [place] [address] [place] HCO3 (Bld) [Moles/Vol] 29 mmol/L High 24-28 [facility] Comment on above: Order Comment: Speci men Type: VENOUS BLOOD SPECIMENOrdering Facility: [facility] Address: [address] [place] [address] Performed By: #### 2 4344-4 ####[facility] LABIA [id number] [place] [address] [place] Hematocrit (Bld) [Volume fraction] 30.0 % Low 39.0-51.0 [facility] Comment on above: Order Comment: Speci men Type: VENOUS BLOOD SPECIMENOrdering Facility: [facility] Address: [address] [place] [address] Performed By: #### 2 4344-4 ####[facility] LABCLIA [id number] [place] [address] [place] Hemoglobin (Bld) [Mass/Vol] 9.7 g/dL Low 13.0-17.0 [facility] Comment on above: Order Comment: Speci men Type: VENOUS BLOOD SPECIMENOrdering Facility: [facility] Address: [address] [place] [address] Performed By: #### 2 4344-4 ####[facility] LABCLIA [id number] [place] [address] [place] Lactate [Moles/Vol] 1.8 mmol/L Normal 0.5-2.2 [facility] Comment on above: Order Comment: Speci men Type: VENOUS BLOOD SPECIMENOrdering Facility: [facility] Address: [address] [place] [address] Performed By: #### 2 4344-4 ####[facility] LABCLIA [id number] [place] [address] [place] LITERS 3 Liters/min Normal [facility] Comment on above: Order Comment: Speci men Type: VENOUS BLOOD SPECIMENOrdering Facility: [facility] Address: [address] [place] [address] Performed By: #### 2 4344-4 ####[facility] LABCLIA [id number] [place] [address] [place] Methemoglobin (Bld) [Mass fraction] 1.1 % Normal 0.0-1.5 [facility] [facility] Comment on above: Order Comment: Speci men Type: VENOUS BLOOD SPECIMENOrdering Facility: [facility] Address: [address] [place] [address] Performed By: #### 2 4344-4 ####[facility] LABCLIA [id number] [address] [address] [place] O2 THERAPY NC = Nasal Cannula Normal [facility] Comment on above: Order Comment: Speci men Type: VENOUS BLOOD SPECIMENOrdering Facility: [facility] Address: [address] [place], [place] [address] Performed By: #### 2 4344-4 ####[facility] LABCLIA [id number] [address] [address] [place] Oxygen (BldV) [Partial pressure] 47 mm[Hg] High 35-45 [facility] Comment on above: Order Comment: Speci men Type: VENOUS BLOOD SPECIMENOrdering Facility: [facility] Address: [address] [place], [place] [address] Performed By: #### 2 4344-4 ####[facility] LABCLIA [id number] [address] [address] [place] Oxygen saturation in Venous blood 80 % Normal 60-85 [facility] Comment on above: Order Comment: Speci men Type: VENOUS BLOOD SPECIMENOrdering Facility: [facility] Address: [address] [place] [address] Performed By: #### 2 4344-4 ####[facility] LABCLIA [id number] [address] [address] [place] Oxyhemoglobin (BldV) [Mass fraction] 78 % Normal 60-85 [facility] Comment on above: Order Comment: Speci men Type: VENOUS BLOOD SPECIMENOrdering Facility: [facility] Address: [address] [place] [address] Performed By: #### 2 4344-4 ####[facility] LABCLIA [id number] [address] [address] [place] pH (BldV) 7.39 [pH] Normal 7.32-7.42 [facility] Comment on above: Order Comment: Speci men Type: VENOUS BLOOD SPECIMENOrdering Facility: [facility] Address: [address] [place] [address] Performed By: #### 2 4344-4 ####[facility] LABCLIA [id number] [address] [address] [place] Potassium [Moles/Vol] 5.0 mmol/L Normal 3.5-5.0 [facility] Comment on above: Order Comment: Speci men Type: VENOUS BLOOD SPECIMENOrdering Facility: [facility] Address: [address] [place] [address] Performed By: #### 2 4344-4 ####[facility] LABCLIA [id number] [place] [address] [place] Sodium [Moles/Vol] 138 mmol/L Normal 136-144 [facility] Comment on above: Order Comment: Speci men Type: VENOUS BLOOD SPECIMENOrdering Facility: [facility] Address: [address] [place] [address] Performed By: #### 2 4344-4 ####[facility] LABCLIA [id number] [place] [address] [place] HIGH SENSITIVITY TROPONIN To n 10-19-2024 Troponin T.cardiac High sensitivity method [Mass/Vol] 162 ng/L High <12 [facility] Comment on above: Order Comment: Speci men Type: BLOOD SPECIMENOrdering Facility: [facility] Address: [address] [place] [address] Performed By: #### H STNT ####[facility] LABCLIA [id number] [place] [address] [place] Troponin T.cardiac High sensitivity method [Mass/Vol] 222 ng/L High <12 [facility] Comment on above: Order Comment: Speci men Type: BLOOD SPECIMENOrdering Facility: [facility] Address: [address] [place] [address] Performed By: #### H STNT ####[facility] LABCLIA [id number] [place] [address] [place] Troponin T.cardiac High sensitivity method [Mass/Vol] 235 ng/L High <12 [facility] Comment on above: Order Comment: Speci men Type: BLOOD SPECIMENOrdering Facility: [facility] Address: [address] [place] [address] Performed By: #### H STNT ####[facility] LABIA [id number] [place] [address] [place] Troponin T.cardiac High sensitivity method [Mass/Vol] 124 ng/L High <12 [facility] Comment on above: Order Comment: Speci men Type: BLOOD SPECIMENOrdering Facility: [facility] Address: [address] [place] [address] Performed By: #### H STNT, 87155-5, 40326-7, 2275-4 ####[facility] LABIA [id number] [place] [address] [place] Iron and Iron binding capaci ty panel 10-19-2024 Iron [Mass/Vol] 70 ug/dL Normal 41-186 [facility] Comment on above: Order Comment: Speci men Type: BLOOD SPECIMENOrdering Facility: [facility] Address: [address] [place] [address] Performed By: #### H STNT, 11149-3, 28739-0, 2275-4 ####[facility] LABIA [id number] [place] [address] [place] Iron binding capacity [Mass/Vol] 316 ug/dL Normal 232-386 [facility] Comment on above: Order Comment: Speci men Type: BLOOD SPECIMENOrdering Facility: [facility] Address: [address] [place] [address] Performed By: #### H STNT, 11304-0, 87548-2, 6-4 ####[facility] LABCLIA [id number] [place] [id number] [place] Iron/TIBC [Molar ratio] 22.2 % Normal 15.0-57.0 [facility] Comment on above: Order Comment: Speci men Type: BLOOD SPECIMENOrdering Facility: [facility] Address: [address] [place] [address] Performed By: #### H STNT, 96860-8, 03171-3, 2276-4 ####[facility] LABCLIA [id number] [place] [address] [place] Magnesium SerPl-mCncon 10-19 Magnesium [Mass/Vol] 2.9 mg/dL High 1.7-2.3 [facility] Comment on above: Order Comment: Speci men Type: BLOOD SPECIMENOrdering Facility: [facility] Address: [address] [place] [address] Result Comment: Resu lt rechecked. Performed By: #### H STNT, 27531-2, 52972-6, 6-4 ####[facility] LABIA [id number] [place] [id number] [place] PTT, ANTICOAGULANT THERAPYon 10-19-2024 aPTT Coag (PPP) [Time] 76.0 s High 23.0-32.4 [facility] Comment on above: Order Comment: Speci men Type: BLOOD SPECIMENOrdering Facility: [facility] Address: [address] [place] [address] Performed By: #### P TTAC ####[facility] LABIA [id number] [place] [address] [place] Urinalysis complete panel (U )on 10-19-2024 Bacteria LM.HPF (Urine sed) [#/Area] Negative Normal Negative [facility] Comment on above: Order Comment: Speci men Type: URINE SPECIMENOrdering Facility: [facility] Address: [address] [place] [address] Performed By: #### 2 4356-8 ####[facility] LABCLIA [id number] [place] [address] [place] Bilirubin Ql (U) Negative Normal Negative [facility] Comment on above: Order Comment: Speci men Type: URINE SPECIMENOrdering Facility: [facility] Address: [address] [place] [address] Performed By: #### 2 4356-8 ####[facility] LABCLIA [id number] [place] [address] [place] Clarity (Unsp spec) Clear Normal Clear [facility] Comment on above: Order Comment: Speci men Type: URINE SPECIMENOrdering Facility: [facility] Address: [address] [place] [address] Performed By: #### 2 4356-8 ####[facility] LABCLIA [id number] [place] [address] [place] Color (U) Yellow Normal Yellow [facility] Comment on above: Order Comment: Speci men Type: URINE SPECIMENOrdering Facility: [facility] Address: [address] [place] [address] Performed By: #### 2 4356-8 ####[facility] LABIA [id number] [place] [address] [place] Epithelial cells LM.HPF (Urine sed) [#/Area] None Seen Normal [facility] Comment on above: Order Comment: Speci men Type: URINE SPECIMENOrdering Facility: [facility] Address: [address] [place] [address] Performed By: #### 2 4356-8 ####[facility] LABIA [id number] [place] [address] [place] Glucose Test strip (U) [Mass/Vol] 2+ Abnormal Negative [facility] Comment on above: Order Comment: Speci men Type: URINE SPECIMENOrdering Facility: [facility] Address: [address] [place] [address] Performed By: #### 2 4356-8 ####[facility] LABCLIA [id number] [place] [address] [place] Hemoglobin Ql (U) Negative Normal Negative [facility] Comment on above: Order Comment: Speci men Type: URINE SPECIMENOrdering Facility: [facility] Address: [address] [place] [address] Performed By: #### 2 4356-8 ####[facility] LABCLIA [id number] [place] [address] [place] Hyaline casts (Urine sed) [#/Area] 0 /[LPF] Normal 0 /LPF [facility] Comment on above: Order Comment: Speci men Type: URINE SPECIMENOrdering Facility: [facility] Address: [address] [place] [address] Performed By: #### 2 4356-8 ####[facility] LABCLIA [id number] [place] [address] [place] Ketones Ql (U) Negative Normal Negative [facility] Comment on above: Order Comment: Speci men Type: URINE SPECIMENOrdering Facility: [facility] Address: [address] [place] [address] Performed By: #### 2 4356-8 ####[facility] LABCLIA [id number] [place] [address] [place] Leukocyte esterase Test strip Ql (U) Negative Normal Negative [facility] Comment on above: Order Comment: Speci men Type: URINE SPECIMENOrdering Facility: [facility] Address: [address] [place] [address] Performed By: #### 2 4356-8 ####[facility] LABCLIA [id number] [place] [address] [place] Nitrite Ql (U) Negative Normal Negative [facility] Comment on above: Order Comment: Speci men Type: URINE SPECIMENOrdering Facility: [facility] Address: [address] [place] [address] Performed By: #### 2 4356-8 ####[facility] LABCLIA [id number] [place] [address] [place] pH (U) 8.0 [pH] Normal <8.5 [facility] Comment on above: Order Comment: Speci men Type: URINE SPECIMENOrdering Facility: [facility] Address: [address] [place] [address] Performed By: #### 2 4356-8 ####[facility] LABCLIA [id number] [place] [address] [place] Protein (U) [Mass/Vol] 1+ Abnormal Negative [facility] Comment on above: Order Comment: Speci men Type: URINE SPECIMENOrdering Facility: [facility] Address: [address] [place] [address] Performed By: #### 2 4356-8 ####[facility] LABCLIA [id number] [place] [address] [place] RBC LM.HPF (Urine sed) [#/Area] 0-2 /HPF Normal 0-2 /HPF [facility] Comment on above: Order Comment: Speci men Type: URINE SPECIMENOrdering Facility: [facility] Address: [address] [place] [address] Performed By: #### 2 4356-8 ####[facility] LABCLIA [id number] [place] [address] [place] Specific gravity (U) [Rel density] 1.034 High 1.005-1.030 [facility] Comment on above: Order Comment: Speci men Type: URINE SPECIMENOrdering Facility: [facility] Address: [address] [place] [address] Performed By: #### 2 4356-8 ####[facility] LABCLIA [id number] [place] [address] [place] Urobilinogen Ql (U) 0.2 EU/dL Normal 0.2-1.0 EU/dL [facility] Comment on above: Order Comment: Speci men Type: URINE SPECIMENOrdering Facility: [facility] Address: [address] [place] [address] Performed By: #### 2 4356-8 ####[facility] [id number] [place] [address] [place] WBC LM.HPF (Urine sed) [#/Area] 0-5 /HPF Normal 0-5 /HPF [facility] Comment on above: Order Comment: Speci men Type: URINE SPECIMENOrdering Facility: [facility] Address: [address] [place] [address] Performed By: #### 2 4356-8 ####[facility] [id number] [place] [address] [place] aPTT PPPon 10-19-2024 aPTT Coag (PPP) [Time] 40.4 s High 23.0-32.4 [facility] Comment on above: Order Comment: Speci men Type: BLOOD SPECIMENOrdering Facility: [facility] Address: [address] [place] [address] Performed By: #### 1 4979-9 ####[facility] [id number] [place] [address] [place] ALLIED HEALTHon 10-18-2024 ALLIED HEALTH HNO ID: [id number] Author: SADE FRANKLIN CT Service: Radiology Author Type: Technologist Type: Allied Health Filed: 10/18/2024 20:48 Note Text: Radiology Service Progress Note DATE OF SERVICE: October 18, 2024 TIME: 8:47 PM PATIENT IDENTITY VERIFICATION COMPLETED USING TWO (2) STANDARD IDENTIFIERS: Name and Date of confirmed by patient verbally and Name and Date of confirmed by identification band. FALL SCREENING: Has the patient had 2 falls in the last year or 1 fall with injury or currently using an Ambulatory Assistive Device (Walker, Cane, Wheelchair, Crutches, etc.)? Emergency Room Patient: Screened in ED PATIENT GENDER DATA: Assigned male at PATIENT RELEVANT IMPLANT DATA REVIEWED: Not Applicable PATIENT PRESENTS WITH AN IMPLANTABLE OR ATTACHED .NET ARCHITECT: No ALLERGIES: Reviewed and unchanged CONTRAST ALLERGY: NO. EXAM: CT -CONTRAST INDUCED NEPHROPATHY RISK FACTORS: Patient age > 60 years and Diabetic: Yes. Current medication(s): Insulin Insulin Pump: NO Insulin Pump Removed: NO. Patient currently has insulin pump?: No. CREATININE: Creatinine Date Value Ref Range Status 10/16/2024 0.94 0.73 - 1.22 mg/dL Final 10/06/2024 1.20 0.73 - 1.22 mg/dL Final 10/05/2024 1.12 0.73 - 1.22 mg/dL Final Estimated Glomerular Filtration Rate Date Value Ref Range Status 10/16/2024 86 >=60 mL/min/1.73m? Final Comment: Estimated Glomerular Filtration Rate (eGFR) is calculated using the 2020 CKD-EPI creatinine equation. This equation utilizes serum creatinine, sex, and age as parameters. The creatinine assay has traceable calibration to isotope dilution-mass spectrometry. Refer to KDIGO guidelines for clinical interpretation. In patients with unstable renal function, e.g. those with acute kidney injury, the eGFR may not accurately reflect actual GFR. eGFR- (POCT) Date Value Ref Range Status 09/23/2021 >60 mL/min/1.73 m2 Final P.O.C.T. RESULTS: POC done: Yes, See Lab Tab October 18, 2024 TREATMENT: N/A PERIPHERAL IV DATA: Inpatient - refer to [facility] documentation RADIOLOGY DEPARTMENT: CT; Exam(s) Completed: CTA Abdomen Pelvis and CTA Cardiac SIGNATURE: JASMEET Ware PATIENT NAME: Shilo Hathaway DATE: October 18, 2024 TIME: 8:47 PM SCAN W/O LABS PER DR ALLEN, [facility] Normal [facility] CBC W Auto Differential pane l (Bld)on 10-18-2024 Basophils (Bld) [#/Vol] 0.08 10*3/uL Normal <0.11 [facility] Comment on above: Order Comment: Speci men Type: BLOOD SPECIMEN [facility] Address: [address] [place] [address] Performed By: #### 2 4323-8, 3040-3, 16514-1, 15408-0, [id number] #### [facility] CLIA [id number] [address] [place] [address] [place] Basophils/100 WBC (Bld) 0.8 % [facility] Comment on above: Order Comment: Speci men Type: BLOOD SPECIMEN [facility] Address: [address] [place] [address] Performed By: #### 2 4323-8, 3040-3, 22794-8, 96173-5, [id number] #### [facility] CLIA [id number] [address] [place] [address] [place] Differential cell count method Nom (Bld) Auto Normal [facility] Comment on above: Order Comment: Speci men Type: BLOOD SPECIMEN [facility] Address: [address] [place] [address] Performed By: #### 2 4323-8, 3040-3, 84826-7, 57108-5, [id number] #### [facility] CLIA [id number] [address] [place] [address] [place] Eosinophils (Bld) [#/Vol] 0.10 10*3/uL Normal <0.46 [facility] Comment on above: Order Comment: Speci men Type: BLOOD SPECIMEN [facility] Address: [address] [place] [address] Performed By: #### 2 4323-8, 3040-3, 52360-3, 65247-4, [id number] #### [facility] CLIA [id number] [address] [place] [address] [place] Eosinophils/100 WBC (Bld) 1.0 % [facility] Comment on above: Order Comment: Speci men Type: BLOOD SPECIMEN [facility] Address: [address] [place] [address] Performed By: #### 2 4323-8, 3040-3, 22593-2, 15569-2, [id number] #### [facility] CLIA [id number] [address] [place] [address] [place] Erythrocyte distribution width (RBC) [Ratio] 12.4 % Normal 11.5-15.0 [facility] Comment on above: Order Comment: Speci men Type: BLOOD SPECIMEN [facility] Address: [address] [place] [address] Performed By: #### 2 4323-8, 3040-3, 88767-4, 73649-1, [id number] #### [facility] CLIA [id number] [address] [place] [address] [place] Hematocrit (Bld) [Volume fraction] 32.6 % Low 39.0-51.0 [facility] Comment on above: Order Comment: Speci men Type: BLOOD SPECIMEN [facility] Address: [address] [place] [address] Performed By: #### 2 4323-8, 3040-3, 23458-8, 25372-9, [id number] #### [facility] CLIA [id number] [address] [place] [address] [place] Hemoglobin (Bld) [Mass/Vol] 11.0 g/dL Low 13.0-17.0 [facility] Comment on above: Order Comment: Speci men Type: BLOOD SPECIMEN [facility] Address: [address] [place] [address] Performed By: #### 2 4323-8, 3040-3, 03201-9, 10084-8, [id number] #### [facility] CLIA [id number] [address] [place] [address] [place] Immature granulocytes (Bld) [#/Vol] 0.05 10*3/uL Normal <0.10 [facility] Comment on above: Order Comment: Speci men Type: BLOOD SPECIMEN [facility] Address: [address] [place] [address] Performed By: #### 2 4323-8, 3040-3, 76275-0, 23564-9, [id number] #### [facility] CLIA [id number] [address] [place] [address] [place] Immature granulocytes/100 WBC (Bld) 0.5 % Normal [facility] Comment on above: Order Comment: Speci men Type: BLOOD SPECIMEN [facility] Address: [address] [place] [address] Performed By: #### 2 4323-8, 3040-3, 26217-8, 18228-7, [id number] #### [facility] CLIA [id number] [address] [place] [address] [place] Lymphocytes (Bld) [#/Vol] 1.34 10*3/uL Normal 1.00-4.00 [facility] Comment on above: Order Comment: Speci men Type: BLOOD SPECIMEN [facility] Address: [address] [place] [address] Performed By: #### 2 4323-8, 3040-3, 24939-1, , [id number] #### [facility] CLIA [id number] [address] [place] [facility] Lymphocytes/100 WBC (Bld) 13.7 % Normal [facility] Comment on above: Order Comment: Speci men Type: BLOOD SPECIMEN [facility] Address: [address] [place] [address] Performed By: #### 2 4323-8, 3040-3, 93150-3, 16552-7, [id number] #### [facility] CLIA [id number] [address] [place] MCH (RBC) [Entitic mass] 30.0 pg Normal 26.0-34.0 [facility] Comment on above: Order Comment: Speci men Type: BLOOD SPECIMEN [facility] Address: [address] [place] [address] Performed By: #### 2 4323-8, 3040-3, 87601-4, 62871-7, [id number] #### [facility] CLIA [id number] [address] MCHC (RBC) [Mass/Vol] 33.7 g/dL Normal 30.5-36.0 [facility] Comment on above: Order Comment: Speci men Type: BLOOD SPECIMEN [facility] Address: [address] [place] [address] Performed By: #### 2 4323-8, 3040-3, 84676-7, 97575-7, [id number] #### [facility] CLIA [id number] [address] [place] [address] [place] MCV (RBC) [Entitic vol] 88.8 fL Normal 80.0-100.0 [facility] Comment on above: Order Comment: Speci men Type: BLOOD SPECIMEN [facility]: [facility] Address: [address] [place] [address] Performed By: #### 2 4323-8, 3040-3, 14110-4, 69676-0, [id number] #### [facility] CLIA [id number] [address] [place] [address] [place] Monocytes (Bld) [#/Vol] 0.79 10*3/uL Normal <0.87 [facility] Comment on above: Order Comment: Speci men Type: BLOOD SPECIMEN [facility] Address: [address] [place] [address] Performed By: #### 2 4323-8, 3040-3, 41449-3, 52801-6, [id number] #### [facility] CLIA [id number] [address] [place] [address] [place] Monocytes/100 WBC (Bld) 8.1 % Normal [facility] Comment on above: Order Comment: Speci men Type: BLOOD SPECIMEN [facility] Address: [address] [place] [address] Performed By: #### 2 4323-8, 3040-3, 89344-9, 00864-8, [id number] #### [facility] CLIA [id number] [address] [place] [address] [place] Neutrophils (Bld) [#/Vol] 7.42 10*3/uL Normal 1.45-7.50 [facility] Comment on above: Order Comment: Speci men Type: BLOOD SPECIMEN [facility] Address: [address] [place] [address] Performed By: #### 2 4323-8, 3040-3, 03439-1, 17634-4, [id number] #### [facility] CLIA [id number] [address] [place] [facility] Neutrophils/100 WBC (Bld) 75.9 % Normal [facility] Comment on above: Order Comment: Speci men Type: BLOOD SPECIMEN [facility]: [facility] Address: [address] [place] [address] Performed By: #### 2 4323-8, 3040-3, 64852-0, 12771-2, [id number] #### [facility] CLIA [id number] [address] [place] [address] [place] Nucleated RBC (Bld) [#/Vol] 10*3/uL Normal <0.01 [facility] Comment on above: Order Comment: Speci men Type: BLOOD SPECIMEN [facility]ing Facility: [facility] Address: [address] [place] [address] Performed By: #### 2 4323-8, 3040-3, 26311-0, 78751-6, [id number] #### [facility] CLIA [id number] [address] STATES OF [place] Nucleated RBC/100 WBC (Bld) [Ratio] 0.0 /100 WBC Normal [facility] Comment on above: Order Comment: Speci men Type: BLOOD SPECIMEN Ordering Facility: [facility] Address: [address] [place] [address] Performed By: #### 2 4323-8, 3040-3, 29899-9, 39827-1, [id number] #### [facility] CLIA [id number] [address] [place] Platelet mean volume (Bld) [Entitic vol] 10.1 fL Normal 9.0-12.7 [facility] Comment on above: Order Comment: Speci men Type: BLOOD SPECIMEN Ordering Facility: [facility] Address: [address] [place] [address] Performed By: #### 2 4323-8, 3040-3, 31568-1, 77785-3, [id number] #### [facility] CLIA [id number] 1000 [place] [address] [place] Platelets (Bld) [#/Vol] 210 10*3/uL Normal 150-400 [facility] Comment on above: Order Comment: Speci men Type: BLOOD SPECIMEN Ordering Facility: [facility] Address: [address] [place] [address] Performed By: #### 2 4323-8, 3040-3, 47188-5, 01247-9, [id number] #### [facility] CLIA [id number] [address] [place] RBC (Bld) [#/Vol] 3.67 10*6/uL Low 4.20-6.00 [facility] Comment on above: Order Comment: Speci men Type: BLOOD SPECIMEN Ordering Facility: [facility] Address: [address] [place] [address] Performed By: #### 2 4323-8, 3040-3, 57843-5, 77956-4, [id number] #### [facility] CLIA [id number] [address] [place] [address] [place] WBC (Bld) [#/Vol] 9.78 10*3/uL Normal 3.70-11.00 [facility] Comment on above: Order Comment: Speci men Type: BLOOD SPECIMEN Ordering Facility: [facility] Address: [address] [place] [address] Performed By: #### 2 4323-8, 3040-3, 13707-9, 54147-6, [id number] #### [facility] CLIA [id number] [address] [place] CBC panel Auto (Bld)on 10-18 Erythrocyte distribution width (RBC) [Ratio] 12.5 % Normal 11.5-15.0 [facility] Comment on above: Order Comment: Speci men Type: BLOOD SPECIMENOrdering Facility: [facility] Address: [address] [place] [address] Performed By: #### 5 8410-2 ####[facility] LABCLIA [id number] [place] [address] [place] Hematocrit (Bld) [Volume fraction] 32.4 % Low 39.0-51.0 [facility] Comment on above: Order Comment: Speci men Type: BLOOD SPECIMENOrdering Facility: [facility] Address: [address] [place] [address] Performed By: #### 5 8410-2 ####[facility] LABCLIA [id number] [place] [address] [place] Hemoglobin (Bld) [Mass/Vol] 10.7 g/dL Low 13.0-17.0 [facility] Comment on above: Order Comment: Speci men Type: BLOOD SPECIMENOrdering Facility: [facility] Address: [address] [place] [address] Performed By: #### 5 8410-2 ####[facility] LABCLIA [id number] [place] [address] [place] MCH (RBC) [Entitic mass] 29.0 pg Normal 26.0-34.0 [facility] Comment on above: Order Comment: Speci men Type: BLOOD SPECIMENOrdering Facility: [facility] Address: [address] [place] [address] Performed By: #### 5 8410-2 ####[facility] LABCLIA [id number] [place] [address] [place] MCHC (RBC) [Mass/Vol] 33.0 g/dL Normal 30.5-36.0 [facility] Comment on above: Order Comment: Speci men Type: BLOOD SPECIMENOrdering Facility: [facility] Address: [address] [place] [address] Performed By: #### 5 8410-2 ####[facility] LABCLIA [id number] [place] [address] [place] MCV (RBC) [Entitic vol] 87.8 fL Normal 80.0-100.0 [facility] Comment on above: Order Comment: Speci men Type: BLOOD SPECIMENOrdering Facility: [facility] Address: [address] [place] [address] Performed By: #### 5 8410-2 ####[facility] LABIA [id number] [place] [address] [place] Nucleated RBC (Bld) [#/Vol] 10*3/uL Normal <0.01 [facility] Comment on above: Order Comment: Speci men Type: BLOOD SPECIMENOrdering Facility: [facility] Address: [address] [place] [address] Performed By: #### 5 8410-2 ####[facility] LABIA [id number] [place] [address] [place] Platelet mean volume (Bld) [Entitic vol] 10.8 fL Normal 9.0-12.7 [facility] Comment on above: Order Comment: Speci men Type: BLOOD SPECIMENOrdering Facility: [facility] Address: [address] [place] [address] Performed By: #### 5 8410-2 ####[facility] LABIA [id number] [place] [address] [place] Platelets (Bld) [#/Vol] 251 10*3/uL Normal 150-400 [facility] Comment on above: Order Comment: Speci men Type: BLOOD SPECIMENOrdering Facility: [facility] Address: [address] [place] [address] Performed By: #### 5 8410-2 ####[facility] LABIA [id number] [place] [address] [place] RBC (Bld) [#/Vol] 3.69 10*6/uL Low 4.20-6.00 [facility] Comment on above: Order Comment: Speci men Type: BLOOD SPECIMENOrdering Facility: [facility] Address: [address] [place] [address] Performed By: #### 5 8410-2 ####[facility] LABCLIA [id number] [place] [address] [place] WBC (Bld) [#/Vol] 12.13 10*3/uL High 3.70-11.00 [facility] Comment on above: Order Comment: Speci men Type: BLOOD SPECIMENOrdering Facility: [facility] Address: [address] [place] [address] Performed By: #### 5 8410-2 ####[facility] LABCLIA [id number] [place] [address] [place] CTA ABD/PELV W IVCONon 10-18 CTA ABD/PELV W IVCON * * *Final Report* * * DATE OF EXAM: Oct 18 2024 9:01PM [facility] 0466 - CTA ABD/PELV W IVCON / PROCEDURE REASON: Aortic dissection suspected * * * * Physician Interpretation * * * * EXAMINATION: CTA CHEST, ABDOMEN, AND PELVIS WITHOUT AND WITH CONTRAST, WITH 3-D RECONSTRUCTIONS 10/18/2024 9:01 PM HISTORY: Aortic dissection suspected eval for dissection, BACK PAIN S/P EATING DINNER eval for dissection, BACK PAIN S/P EATING DINNER TECHNIQUE: Spiral CT acquisition of the chest, abdomen, and pelvis prior to, then following bolus infusion of IV iodinated contrast. 3D image post-processing was performed at the request of the referring physician, on the CT scanner workstation under physician supervision. Contrast: IV: 100 mL of Omnipaque 350 Oral: None. CT Radiation dose: Integrated Dose-length product (DLP) for this visit = 299 (accession [id number]), 2999 (accession [id number]) mGy*cm. CT Dose Reduction Employed: Automated exposure control(AEC) and iterative recon COMPARISON: 07/09/2023. RESULT: Vascular findings: No pulmonary embolus to the subsegmental level. Nonaneurysmal aorta. No evidence of dissection. 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 The LEFT subclavian-femoral graft is patent, but does demonstrate approximately 50% stenosis at the anastomosis (axial series 301, image 255). Included portions of the carotid and subclavian arteries are patent. 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 The TANO is patent. The far infrarenal abdominal aorta is occluded just distal to the origin of the TANO. The common iliac arteries are occluded. Collateral vessels contribute to opacification of distal branches of the RIGHT internal iliac artery and likely supply the territory of the LEFT internal iliac artery as well. There are tiny collateral vessels originating from the RIGHT inferior epigastric artery that are patent into the RIGHT upper thigh. There is complete or near-complete occlusion of the proximal LEFT superficial femoral artery (series 301, image 271). The LEFT upper thigh demonstrates at least some degree of contrast within the superficial femoral artery immediately distal to this, and also within branches of the profunda femoris. Chest: Lines, Tubes, and Devices: N/A Lungs and Pleura: Linear subsegmental atelectasis in the RIGHT middle lobe. No consolidation, pleural effusion, or pneumothorax. Cardiomediastinal structures: Cardiac chambers are normal in size. Dense calcific arteriosclerotic disease of the coronary arteries, which are obscured secondary to motion artifact. Neck base: Within normal limits. Thoracic lymph nodes: No lymphadenopathy. Abdomen/pelvis: Liver: No mass. Biliary: Cholecystectomy. Spleen: No mass. No splenomegaly. Pancreas: No mass or duct dilation. Adrenals:No mass. Kidneys: No hydronephrosis or nephrolithiasis. Normal appearance of the urinary bladder. GI tract: Colonic diverticula without CT evidence of diverticulitis. No intraperitoneal free fluid or free air. Lymph nodes: No abdominal lymphadenopathy. Mesentery/Peritoneum: No ascites or mass. Osseous structures: No concerning lytic or blastic osseous lesion. Vertebral body heights are maintained. Sagittal spinal alignment is anatomic. Soft tissues: No acute abnormality of the superficial soft tissues. IMPRESSION: Negative for dissection, pulmonary embolus, or any other acute vascular abnormality within the chest. 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 Dense calcific arteriosclerotic disease of the coronary arteries. Dense calcific arteriosclerotic disease at the origin of the celiac trunk, SMA, and renal arteries limits evaluation of the degree of stenosis in these regions. Rippler: FRANCISCO Transcribe Date/Time: Oct 18 2024 9:20P Dictated by : RULA BENTLEY MD This examination was interpreted and the report reviewed and electronically signed by: RULA BENTLEY MD on Oct 18 2024 9:46PM EST [id number] [facility] CTA CHEST (GATED) WO/W IVCON on 10-18-2024 CTA CHEST (GATED) WO/W IVCON * * *Final Report* * * DATE OF EXAM: Oct 18 2024 9:01PM [facility] 0126 - CTA CHEST (GATED) WO/W IVCON / PROCEDURE REASON: Aortic dissection suspected * * * * Physician Interpretation * * * * EXAMINATION: CTA CHEST, ABDOMEN, AND PELVIS WITHOUT AND WITH CONTRAST, WITH 3-D RECONSTRUCTIONS 10/18/2024 9:01 PM HISTORY: Aortic dissection suspected eval for dissection, BACK PAIN S/P EATING DINNER eval for dissection, BACK PAIN S/P EATING DINNER TECHNIQUE: Spiral CT acquisition of the chest, abdomen, and pelvis prior to, then following bolus infusion of IV iodinated contrast. 3D image post-processing was performed at the request of the referring physician, on the CT scanner workstation under physician supervision. Contrast: IV: 100 mL of Omnipaque 350 Oral: None. CT Radiation dose: Integrated Dose-length product (DLP) for this visit = 299 (accession [id number]), 2999 (accession [id number]) mGy*cm. CT Dose Reduction Employed: Automated exposure control(AEC) and iterative recon COMPARISON: 07/09/2023. RESULT: Vascular findings: No pulmonary embolus to the subsegmental level. Nonaneurysmal aorta. No evidence of dissection. 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 The LEFT subclavian-femoral graft is patent, but does demonstrate approximately 50% stenosis at the anastomosis (axial series 301, image 255). Included portions of the carotid and subclavian arteries are patent. 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 The TANO is patent. The far infrarenal abdominal aorta is occluded just distal to the origin of the TANO. The common iliac arteries are occluded. Collateral vessels contribute to opacification of distal branches of the RIGHT internal iliac artery and likely supply the territory of the LEFT internal iliac artery as well. There are tiny collateral vessels originating from the RIGHT inferior epigastric artery that are patent into the RIGHT upper thigh. There is complete or near-complete occlusion of the proximal LEFT superficial femoral artery (series 301, image 271). The LEFT upper thigh demonstrates at least some degree of contrast within the superficial femoral artery immediately distal to this, and also within branches of the profunda femoris. Chest: Lines, Tubes, and Devices: N/A Lungs and Pleura: Linear subsegmental atelectasis in the RIGHT middle lobe. No consolidation, pleural effusion, or pneumothorax. Cardiomediastinal structures: Cardiac chambers are normal in size. Dense calcific arteriosclerotic disease of the coronary arteries, which are obscured secondary to motion artifact. Neck base: Within normal limits. Thoracic lymph nodes: No lymphadenopathy. Abdomen/pelvis: Liver: No mass. Biliary: Cholecystectomy. Spleen: No mass. No splenomegaly. Pancreas: No mass or duct dilation. Adrenals:No mass. Kidneys: No hydronephrosis or nephrolithiasis. Normal appearance of the urinary bladder. GI tract: Colonic diverticula without CT evidence of diverticulitis. No intraperitoneal free fluid or free air. Lymph nodes: No abdominal lymphadenopathy. Mesentery/Peritoneum: No ascites or mass. Osseous structures: No concerning lytic or blastic osseous lesion. Vertebral body heights are maintained. Sagittal spinal alignment is anatomic. Soft tissues: No acute abnormality of the superficial soft tissues. IMPRESSION: Negative for dissection, pulmonary embolus, or any other acute vascular abnormality within the chest. 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 Dense calcific arteriosclerotic disease of the coronary arteries. Dense calcific arteriosclerotic disease at the origin of the celiac trunk, SMA, and renal arteries limits evaluation of the degree of stenosis in these regions. Rippler: FRANCISCO Transcribe Date/Time: Oct 18 2024 9:20P Dictated by : RULA BENTLEY MD This examination was interpreted and the report reviewed and electronically signed by: RULA BENTLEY MD on Oct 18 2024 9:46PM EST [id number] Normal [facility] CYSTATIN Con 10-18-2024 Cystatin C [Mass/Vol] 1.24 mg/L High 0.61-0.95 [facility] Comment on above: Order Comment: Speci men Type: BLOOD SPECIMENOrdering Facility: [facility] Address: [address] [place] [address] Performed By: #### 2 777-1, 57366-2, , HSTNT, LIPNF, CYSTC ####[facility] LABCLIA [id number] [address] [place] CYSTATIN C EGFR 56 mL/min/1.73m??? Low >=60 [facility] Comment on above: Order Comment: [facility] Type: BLOOD SPECIMENOrdering Facility: [facility] Address: [address] [place] [address] Result Comment: Mary Kay mated Glomerular Filtration Rate (eGFR) is calculated using the 2012 CKD-EPI cystatin C equation. This equation utilizes serum cystatin C, sex, and age as parameters. The cystatin C assay has traceable calibration to the ERM-DA471/[facility] reference material. Refer to KDIGO guidelines for clinical interpretation. In patients with unstable renal function, e.g. those with acute kidney injury, the eGFR may not accurately reflect actual GFR. Performed By: #### 2 777-1, 17288-1, 65647-4, HSTNT, LIPNF, CYSTC ####[facility] LABCLIA [id number] [address] [address] [place] Comprehensive metabolic 2000 panelon 10-18-2024 Albumin [Mass/Vol] 4.1 g/dL Normal 3.9-4.9 [facility] Comment on above: Order Comment: Speci men Type: BLOOD SPECIMENOrdering Facility: [facility] Address: [address] [place] [address] Performed By: #### 2 777-1, 61074-3, 05616-2, HSTNT, LIPNF, CYSTC ####[facility] LABCLIA [id number] [address] [address] [place] ALP [Catalytic activity/Vol] 67 U/L Normal 38-113 [facility] Comment on above: Order Comment: Speci men Type: BLOOD SPECIMENOrdering Facility: [facility] Address: [address] [place] [address] Performed By: #### 2 777-1, 54055-9, 60406-1, HSTNT, LIPNF, CYSTC ####[facility] LABCLIA [id number] [place] [id number] [place] ALT [Catalytic activity/Vol] 14 U/L Normal 10-54 [facility] Comment on above: Order Comment: Speci men Type: BLOOD SPECIMENOrdering Facility: [facility] Address: [address] [place] [address] Performed By: #### 2 777-1, 97292-0, 06878-7, HSTNT, LIPNF, CYSTC ####[facility] LABIA [id number] [place] [id number] [place] Anion gap [Moles/Vol] 16 mmol/L High 8-15 [facility] Comment on above: Order Comment: Speci men Type: BLOOD SPECIMENOrdering Facility: [facility] Address: [address] [place] [address] Performed By: #### 2 777-1, 24474-8, 37243-3, HSTNT, LIPNF, CYSTC ####[facility] LABCLIA [id number] [address] [address] [place] AST [Catalytic activity/Vol] 19 U/L Normal 14-40 [facility] Comment on above: Order Comment: Speci men Type: BLOOD SPECIMENOrdering Facility: [facility] Address: [address] [place] [address] Performed By: #### 2 777-1, 78454-9, 31780-6, HSTNT, LIPNF, CYSTC ####[facility] LABCLIA [id number] [address] [address] [place] Bilirubin [Mass/Vol] 0.3 mg/dL Normal 0.2-1.3 [facility] Comment on above: Order Comment: Speci men Type: BLOOD SPECIMENOrdering Facility: [facility] Address: [address] [place] [address] Performed By: #### 2 777-1, 82123-8, 60730-3, HSTNT, LIPNF, CYSTC ####[facility] LABCLIA [id number] [place] [address] [place] Calcium [Mass/Vol] 9.1 mg/dL Normal 8.5-10.2 [facility] Comment on above: Order Comment: Speci men Type: BLOOD SPECIMENOrdering Facility: [facility] Address: [address] [place] [address] Performed By: #### 2 777-1, 27589-2, , HSTNT, LIPNF, CYSTC ####[facility] LABCLIA [id number] [place] [address] [place] Chloride [Moles/Vol] 101 mmol/L Normal 98-107 [facility] Comment on above: Order Comment: Speci men Type: BLOOD SPECIMENOrdering Facility: [facility] Address: [address] [place] [address] Performed By: #### 2 777-1, 33632-9, , HSTNT, LIPNF, CYSTC ####[facility] LABCLIA [id number] [place] [address] [place] CO2 [Moles/Vol] 23 mmol/L Normal 22-30 [facility] Comment on above: Order Comment: Speci men Type: BLOOD SPECIMENOrdering Facility: [facility] Address: [address] [place] [address] Performed By: #### 2 777-1, 12957-2, 90078-7, HSTNT, LIPNF, CYSTC ####[facility] LABCLIA [id number] [place] [id number] [place] Creatinine [Mass/Vol] 1.34 mg/dL High 0.73-1.22 [facility] Comment on above: Order Comment: Speci men Type: BLOOD SPECIMENOrdering Facility: [facility] Address: [address] [place] [address] Performed By: #### 2 777-1, 19469-8, , HSTNT, LIPNF, CYSTC ####[facility] LABIA [id number] [place] [address] [place] Creatinine and Glomerular filtration rate.predicted panel (S/P/Bld) 56 mL/min/1.73m??? Low >=60 [facility] Comment on above: Order Comment: Speci men Type: BLOOD SPECIMENOrdering Facility: [facility] Address: [address] [place] [address] Result Comment: Mary Kay mated Glomerular Filtration Rate (eGFR) is calculated using the 2020 CKD-EPI creatinine equation. This equation utilizes serum creatinine, sex, and age as parameters. The creatinine assay has traceable calibration to isotope dilution-mass spectrometry. Refer to KDIGO guidelines for clinical interpretation. In patients with unstable renal function, e.g. those with acute kidney injury, the eGFR may not accurately reflect actual GFR. Performed By: #### 2 777-1, 63784-5, 89854-7, HSTNT, LIPNF, CYSTC ####[facility] LABIA [id number] [place] [id number] [place] Glucose [Mass/Vol] 233 mg/dL High 74-99 [facility] Comment on above: Order Comment: Speci men Type: BLOOD SPECIMENOrdering Facility: [facility] Address: [address] [place] [address] Result Comment: The [place] [employer] (ADA) provides guidance for cutoff values for fasting glucose and random glucose. The ADA defines fasting as no caloric intake for at least 8 hours. Fasting plasma glucose results between 100 to 125 mg/dL indicate increased risk for diabetes (prediabetes).Fasting plasma glucose results greater than or equal to 126 mg/dL meet the criteria for diagnosis of diabetes. In the absence of unequivocal hyperglycemia, results should be confirmed by repeat testing. In a patient with classic symptoms of hyperglycemia or hyperglycemic crisis, random plasma glucose results greater than or equal to 200 mg/dL meet the criteria for diagnosis of diabetes.Reference: Standards of Medical Care in Diabetes 2016, [place] [employer]. Diabetes Care. 2016.39(Suppl 1). Performed By: #### 2 777-1, , , HSTNT, LIPNF, CYSTC ####[facility] LABCLIA [id number] [place] [address] [place] Potassium [Moles/Vol] 5.0 mmol/L Normal 3.7-5.1 [facility] Comment on above: Order Comment: Speci men Type: BLOOD SPECIMENOrdering Facility: [facility] Address: [address] [place] [address] Performed By: #### 2 777-1, , , HSTNT, LIPNF, CYSTC ####[facility] LABCLIA [id number] [place] [id number] [place] Protein [Mass/Vol] 7.0 g/dL Normal 6.3-8.0 [facility] Comment on above: Order Comment: Speci men Type: BLOOD SPECIMENOrdering Facility: [facility] Address: [address] [place] [address] Performed By: #### 2 777-1, , , HSTNT, LIPNF, CYSTC ####[facility] LABCLIA [id number] [place] [id number] [place] Sodium [Moles/Vol] 140 mmol/L Normal 136-144 [facility] Comment on above: Order Comment: Speci men Type: BLOOD SPECIMENOrdering Facility: [facility] Address: [address] [place] [address] Performed By: #### 2 777-1, 33459-2, 41726-8, HSTNT, LIPNF, CYSTC ####[facility] LABCLIA [id number] [place] [address] [place] Urea nitrogen [Mass/Vol] 24 mg/dL Normal 9-24 [facility] Comment on above: Order Comment: Speci men Type: BLOOD SPECIMENOrdering Facility: [facility] Address: [address] [place] [place] [address] Performed By: #### 2 777-1, 49308-5, 26775-1, HSTNT, LIPNF, CYSTC ####[facility] LABCLIA [id number] [place] [address] [place] Albumin [Mass/Vol] 4.4 g/dL Normal 3.9-4.9 [facility] Comment on above: Order Comment: Speci men Type: BLOOD SPECIMEN Ordering Facility: [facility] Address: [address] [place] [address] Performed By: #### 2 4323-8, 3040-3, 71571-7, 32145-1, [id number] #### [facility] CLIA [id number] [address] [place] [address] [place] ALP [Catalytic activity/Vol] 62 U/L Normal 38-113 [facility] Comment on above: Order Comment: Speci men Type: BLOOD SPECIMEN Ordering Facility: [facility] Address: [address] [place] [address] Performed By: #### 2 4323-8, 3040-3, 12654-9, 45113-9, [id number] #### [facility] CLIA [id number] [address] [place] [address] [place] ALT [Catalytic activity/Vol] 13 U/L Normal 10-54 [facility] Comment on above: Order Comment: Speci men Type: BLOOD SPECIMEN Ordering Facility: [facility] Address: [address] [place] [address] Performed By: #### 2 4323-8, 3040-3, 34118-7, 26736-5, [id number] #### [facility] CLIA [id number] [address] [place] [address] [place] Anion gap [Moles/Vol] 12 mmol/L Normal 8-15 [facility] Comment on above: Order Comment: Speci men Type: BLOOD SPECIMEN Ordering Facility: [facility] Address: [address] [place] [address] Performed By: #### 2 4323-8, 3040-3, 81773-3, 03260-2, [id number] #### [facility] CLIA [id number] [address] [place] AST [Catalytic activity/Vol] 18 U/L Normal 14-40 [facility] Comment on above: Order Comment: Speci men Type: BLOOD SPECIMEN Ordering Facility: [facility] Address: [address] [place] [address] Performed By: #### 2 4323-8, 3040-3, 34375-5, 76552-4, [id number] #### [facility] CLIA [id number] [address] [place] Bilirubin [Mass/Vol] 0.3 mg/dL Normal 0.2-1.3 [facility] Comment on above: Order Comment: Speci men Type: BLOOD SPECIMEN Ordering Facility: [facility] Address: [address] [place] [address] Performed By: #### 2 4323-8, 3040-3, 18219-6, 13008-1, [id number] #### [facility] CLIA [id number] [address] STATES OF [facility] Calcium [Mass/Vol] 9.8 mg/dL Normal 8.5-10.2 [facility] Comment on above: Order Comment: Speci men Type: BLOOD SPECIMEN Ordering Facility: [facility] Address: [address] [place] [address] Performed By: #### 2 4323-8, 3040-3, 39886-3, 85647-1, [id number] #### [facility] CLIA [id number] [address] [place] [address] [place] Chloride [Moles/Vol] 100 mmol/L Normal 98-107 [facility] Comment on above: Order Comment: Speci men Type: BLOOD SPECIMEN Ordering Facility: [facility] Address: [address] [place] [address] Performed By: #### 2 4323-8, 3040-3, 56666-3, 69543-4, [id number] #### [facility] CLIA [id number] [address] [place] [address] [place] CO2 [Moles/Vol] 28 mmol/L Normal 22-30 [facility] Comment on above: Order Comment: Speci men Type: BLOOD SPECIMEN Ordering Facility: [facility] Address: [address] [place] [address] Performed By: #### 2 4323-8, 3040-3, 23399-7, 08383-7, [id number] #### [facility] CLIA [id number] [address] [place] [address] [place] Creatinine [Mass/Vol] 1.32 mg/dL High 0.73-1.22 [facility] Comment on above: Order Comment: Speci men Type: BLOOD SPECIMEN Ordering Facility: [facility] Address: [address] [place] [address] Performed By: #### 2 4323-8, 3040-3, 85462-6, 38947-7, [id number] #### [facility] CLIA [id number] [address] [place] [address] [facility] [place] Creatinine and Glomerular filtration rate.predicted panel (S/P/Bld) 57 mL/min/1.73m??? Low >=60 [facility] Comment on above: Order Comment: Speci men Type: BLOOD SPECIMEN Ordering Facility: [facility] Address: [address] [place] [address] Result Comment: Mary Kay mated Glomerular Filtration Rate (eGFR) is calculated using the 2021 CKD-EPI creatinine equation. This equation utilizes serum creatinine, sex, and age as parameters. The creatinine assay has traceable calibration to isotope dilution-mass spectrometry. Refer to KDIGO guidelines for clinical interpretation. In patients with unstable renal function, e.g. those with acute kidney injury, the eGFR may not accurately reflect actual GFR. Performed By: #### 2 4323-8, 3040-3, 07849-6, 85941-5, [id number] #### [facility] CLIA [id number] [address] [place] [address] [place] Glucose [Mass/Vol] 258 mg/dL High 74-99 [facility] Comment on above: Order Comment: Jose Cruz johnson Type: BLOOD SPECIMEN Ordering Facility: [facility] Address: [address] [place] [address] Result Comment: The [place] Diabetes [employer] (ADA) provides guidance for cutoff values for fasting glucose and random glucose. The ADA defines fasting as no caloric intake for at least 8 hours. Fasting plasma glucose results between 100 to 125 mg/dL indicate increased risk for diabetes (prediabetes). Fasting plasma glucose results greater than or equal to 126 mg/dL meet the criteria for diagnosis of diabetes. In the absence of unequivocal hyperglycemia, results should be confirmed by repeat testing. In a patient with classic symptoms of hyperglycemia or hyperglycemic crisis, random plasma glucose results greater than or equal to 200 mg/dL meet the criteria for diagnosis of diabetes. Reference: Standards of Medical Care in Diabetes 2016, [place] [employer] Association. Diabetes Care. 2016.39(Suppl 1). Performed By: #### 2 4323-8, 3040-3, 66425-1, 18667-4, [id number] #### [facility] CLIA [id number] [address] [place] [address] [place] Potassium [Moles/Vol] 5.0 mmol/L Normal 3.7-5.1 [facility] Comment on above: Order Comment: Jose Cruz johnson Type: BLOOD SPECIMEN Ordering Facility: [facility] Address: [address] [place], [place] [address] Performed By: #### 2 4323-8, 3040-3, 24681-1, 28835-2, [id number] #### [facility] CLIA [id number] [address] [place] [address] [place] Protein [Mass/Vol] 7.6 g/dL Normal 6.3-8.0 [facility] Comment on above: Order Comment: Speci men Type: BLOOD SPECIMEN Ordering Facility: [facility] Address: [address] [place] [address] Performed By: #### 2 4323-8, 3040-3, 01160-9, 94675-7, [id number] #### [facility] CLIA [id number] [address] [place] [address] [place] Sodium [Moles/Vol] 140 mmol/L Normal 136-144 [facility] Comment on above: Order Comment: Speci men Type: BLOOD SPECIMEN Ordering Facility: [facility] Address: [address] [place] [address] Performed By: #### 2 4323-8, 3040-3, 49063-7, 41394-3, [id number] #### [facility] CLIA [id number] [address] [place] [address] [place] Urea nitrogen [Mass/Vol] 25 mg/dL High 9-24 [facility] Comment on above: Order Comment: Speci men Type: BLOOD SPECIMEN Ordering Facility: [facility] Address: [address] [place] [address] Performed By: #### 2 4323-8, 3040-3, 37734-8, 05484-8, [id number] #### [facility] CLIA [id number] [address] [place] [address] [place] [id number] 10-18-2024 ECG01 Normal [facility] ED NOTEon 10-18-2024 ED NOTE HNO ID: [id number] Author: LEAH CHAVEZ RN Service: ? Author Type: Registered Nurse Type: ED Notes Filed: 10/18/2024 22:20 Note Text: Transport left unit [facility] [facility] ED NOTE HNO ID: [id number] Author: LEAH CHAVEZ RN Service: ? Author Type: Registered Nurse Type: ED Notes Filed: 10/18/2024 22:10 Note Text: Transport team at bedside [facility] ED NOTE HNO ID: [id number] Author: LEAH CHAVEZ RN Service: ? Author Type: Registered Nurse Type: ED Notes Filed: 10/18/2024 21:15 Note Text: Pt returned from CT c/o pain ripping through his back. EKG repeated and given to MD. [facility] ED NOTE HNO ID: [id number] Author: LEAH CHAVEZ RN Service: ? Author Type: Registered Nurse Type: ED Notes Filed: 10/18/2024 20:31 Note Text: Bed: ED-02 Expected date: Expected time: Means of arrival: Comments: [facility] ED PROV NOTEon 10-18-2024 ED PROV NOTE HNO ID: [id number] Author: STEFFANIE ALLEN MD Service: Emergency Medicine Author Type: Physician Type: ED Provider Notes Filed: 10/18/2024 21:41 Note Text: ED Provider Note Patient Name: Shilo Hathaway : 1950 SERVICE DATE: 10/18/24 History Patient presents with: Chest Pain: Pt presents c/o chest pain that radiates to his back that started right after dinner. Reports he was just admitted to ICU for hyperkalemia. Mr. 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 He still feels some pain in his back presently. He has some dyspnea and nausea, but no diaphoresis. No pain in his shoulders. He is not really sure if this is what prior heart attack was like, because he does not remember those, but he does think he has had a heart attack. PAST MEDICAL HISTORY Diagnosis Date Aortoiliac occlusive disease (HCC) Atherosclerotic heart disease of [place] coronary artery without angina pectoris Carotid artery occlusion Carotid artery stenosis Cerebrovascular accident (CVA) (HCC) Coronary arteriosclerosis [place] 1998 Depressive disorder Disc disorder of lumbar region Diverticulitis of colon Diverticulitis of colon Essential tremor Gastroesophageal reflux disease Generalized anxiety disorder Hiatal hernia History of myocardial infarction Hyperlipidemia Hypertension Intervertebral disc disorder of lumbar region with myelopathy Irritable bowel syndrome Myocardial infarction (HCC) Old myocardial infarction Peripheral vascular disease (HCC) PERS HX COLONIC POLYPS Preoperative testing 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 Sleep apnea SOB (shortness of breath) 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) Type 2 diabetes mellitus (HCC) PAST SURGICAL HISTORY Procedure Laterality Date AMPUTATION OF LOWER LEG Left 05/05/2022 Left above knee amputation AMPUTATION OF LOWER LEG Right 09/17/2023 Right above-knee amputation ANGIOPLASTY 1998, 2004, 2013 CAROTID ENDARTERECTOMY Bilateral right 02/2013, left 08/2001 COLONOSCOPY 05/26/2023 COLONOSCOPY FLX DX W/COLLJ SPEC WHEN PFRMD 2000 Colonoscopy with polypectomies COLONOSCOPY SCREENING 07/04/2021 tubular adenomas x5, severe diverticulosis ESOPHAGOGASTRODUODENOSCOPY TRANSORAL DIAGNOSTIC 2000 EGD reportedly normal EXPLORATION GROIN Left 04/29/2018 Left Groin Exploration, Thrombectomy of Left Limb of Axillo-Bifemoral Bypass, Revision of Left Femoral Anastomosis INSERT INTRACORONARY STENT 1998 RCA LAPAROSCOPY SURG CHOLECYSTECTOMY 1997 Cholecystectomy, lap LEFT HEART CATH,PERCUTANEOUS 1998 Cardiac cath, L heart PAST SURGICAL HISTORY OF Carotid stenosis PAST SURGICAL HISTORY OF Bilateral 12/25/2016 Axillo bifem bypass PAST SURGICAL HISTORY OF ureter removal STENT PLACEMENT 1998 BMS RCA STENT PLACEMENT 11/2013 MARVIN RCA FAMILY HISTORY Problem Relation Age of Onset Ischemic Heart Disease Father Cancer Father Coronary Artery Disease Father Breast Cancer Mother Social History Tobacco Use Smoking status: Former Current packs/day: 0.00 Types: Cigarettes Quit date: 03/06/1999 Years since quittin.6 Smokeless tobacco: Never Tobacco comments: Start date: 1969; Stop date: 1998 Vaping Use Vaping status: Never Used Substance and Sexual Activity Alcohol use: No Comment: abstinent x 6 yrs Drug use: No Sexual activity: Yes ALLERGIES Allergen Reactions Atorvastatin Myalgia Levofloxacin Unknown Metformin Diarrhea Review of Systems Constitutional: Negative for chills and fever. HENT: Negative for ear pain, rhinorrhea and sore throat. Respiratory: Positive for shortness of breath. Negative for cough. Cardiovascular: Positive for chest pain. Negative for leg swelling. Gastrointestinal: Positive for nausea. Negative for abdominal pain, diarrhea and vomiting. Genitourinary: Negative for dysuria, flank pain, frequency and hematuria. Musculoskeletal: Negative for back pain. Skin: Negative for rash. Neurological: Negative for speech difficulty, weakness, light-headedness, numbness and headaches. Psychiatric/Behavioral: Negative for hallucinations and suicidal ideas. Physical Exam Vitals [10/18/242032] BP Pulse Temp Temp src Resp SpO2 Weight Height -- -- -- Oral 18 -- 76.4 kg (168 lb 6.9 oz) -- Physical Exam Vitals and nursing note reviewed. Constitutional: General: He is not in acute distress. Appearance: He is well-developed. HENT: Head: Normocephalic and atraumatic. Eyes: Pupils: Pupils are equal, round, and reactive to light. Neck: Trachea: No tracheal deviation. Cardiovascular: Rate and Rhythm: Normal rate. Heart sounds: No murmur heard. No friction rub. No gallop. Pulmonary: Effort: Pulmonary (more content not included)... Normal [facility] EKGon 10-18-2024 Electrocardiogram Ventricular Rate : 9 4 BPM Atrial Rate : 94 BPM P-R Interval : 178 ms QRS Duration : 108 ms Q-T Interval : 356 ms QTC Calculation(Bazett) : 445 ms Calculated P [place] : 52 degrees Calculated R [place] : 67 degrees Calculated T [place] : 259 degrees NORMAL SINUS RHYTHM CANNOT RULE OUT INFERIOR INFARCT (CITED ON OR BEFORE 18-Oct-2024) MARKED ST ABNORMALITY, POSSIBLE ANTEROLATERAL SUBENDOCARDIAL INJURY ABNORMAL ECG When compared with selected ECG of 18-Oct-2024 20:33, SERIAL CHANGES OF INFERIOR INFARCT PRESENT ST changes more prominent- potential STEMI equivalent (L main/LAD) Confirmed by STEFFANIE ALLEN MD ([id number]) on 10/18/2024 9:18:05 PM NAME : SHILO HATHAWAY PID : [id number] : 1950 Gender : Male Race : ORD : Procedure Date : Oct 18 2024 21:08:10 Edit Date : Oct 18 2024 21:18:09 Diagnosis: NORMAL SINUS RHYTHM CANNOT RULE OUT INFERIOR INFARCT (CITED ON OR BEFORE 18-Oct-2024) MARKED ST ABNORMALITY, POSSIBLE ANTEROLATERAL SUBENDOCARDIAL INJURY ABNORMAL ECG When compared with selected ECG of 18-Oct-2024 20:33, SERIAL CHANGES OF INFERIOR INFARCT PRESENT ST changes more prominent- potential STEMI equivalent (L main/LAD) Confirmed by STEFFANIE ALLEN MD ([id number]) on 10/18/2024 9:18:05 PM Test Reason : Location : 1 : ER ED Overread By : STEFFANIE ALLEN MD Edited By : STEFFANIE ALLEN MD Referred By : , Acquired by : JANNY Normal [facility] Electrocardiogram Ventricular Rate : 8 9 BPM Atrial Rate : 89 BPM P-R Interval : 202 ms QRS Duration : 100 ms Q-T Interval : 372 ms QTC Calculation(Bazett) : 452 ms Calculated P [place] : 53 degrees Calculated R [place] : 69 degrees Calculated T [place] : -46 degrees NORMAL SINUS RHYTHM CANNOT RULE OUT INFERIOR INFARCT , AGE UNDETERMINED ST and T WAVE ABNORMALITY, CONSIDER LATERAL ISCHEMIA ABNORMAL ECG When compared with selected ECG of 03-Oct-2024 16:51, ST NOW DEPRESSED IN INFERIOR LEADS ST NOW DEPRESSED IN ANTEROLATERAL LEADS T WAVE INVERSION NOW EVIDENT IN INFERIOR LEADS T WAVE INVERSION NOW EVIDENT IN LATERAL LEADS QT HAS LENGTHENED STD diffusely, KELIN aVR & V1 - will discuss w/ J31 Confirmed by STEFFANIE ALLEN MD () on 10/18/2024 8:36:37 PM NAME : SHILO HATHAWAY PID : [id number] : 1950 Gender : Male Race : ORD : Procedure Date : Oct 18 2024 20:33:07 Edit Date : Oct 18 2024 20:36:38 Diagnosis: NORMAL SINUS RHYTHM CANNOT RULE OUT INFERIOR INFARCT , AGE UNDETERMINED ST and T WAVE ABNORMALITY, CONSIDER LATERAL ISCHEMIA ABNORMAL ECG When compared with selected ECG of 03-Oct-2024 16:51, ST NOW DEPRESSED IN INFERIOR LEADS ST NOW DEPRESSED IN ANTEROLATERAL LEADS T WAVE INVERSION NOW EVIDENT IN INFERIOR LEADS T WAVE INVERSION NOW EVIDENT IN LATERAL LEADS QT HAS LENGTHENED STD diffusely, KELIN aVR & V1 - will discuss w/ J31 Confirmed by STEFFANIE ALLEN MD () on 10/18/2024 8:36:37 PM Test Reason : Location : 1 : ER ED Overread By : STEFFANIE ALLEN MD Edited By : STEFFANIE ALLEN MD Referred By : , Acquired by : Min SINGH [facility] Gas and Carbon monoxide pane l (BldV)on 10-18-2024 Base excess Calc (BldV) [Moles/Vol] 1 mmol/L Normal 0-2 [facility] Comment on above: Order Comment: Speci men Type: VENOUS BLOOD SPECIMENOrdering Facility: [facility] Address: [address] [place] [address] Performed By: #### 2 4344-4 ####[facility] LABCLIA [id number] [place] [address] [place] Body temperature 98.6 [degF] Normal [facility] Comment on above: Order Comment: Speci men Type: VENOUS BLOOD SPECIMENOrdering Facility: [facility] Address: [address] [place] [address] Performed By: #### 2 4344-4 ####[facility] LABCLIA [id number] [place] [address] [place] Calcium.ionized (Bld) [Mass/Vol] 1.20 mmol/L Normal 1.08-1.30 [facility] Comment on above: Order Comment: Speci men Type: VENOUS BLOOD SPECIMENOrdering Facility: [facility] Address: [address] [place] [address] Performed By: #### 2 4344-4 ####[facility] LABIA [id number] [place] [address] [place] Calcium.ionized adjusted to pH 7.4 (BldA) [Moles/Vol] 1.19 mmol/L Normal 1.08-1.30 [facility] Comment on above: Order Comment: Speci men Type: VENOUS BLOOD SPECIMENOrdering Facility: [facility] Address: [address] [place] [address] Performed By: #### 2 4344-4 ####[facility] LABCLIA [id number] [place] [address] [place] Carboxyhemoglobin (BldV) [Mass fraction] 1.2 % Normal 0.0-2.0 [facility] Comment on above: Order Comment: Speci men Type: VENOUS BLOOD SPECIMENOrdering Facility: [facility] Address: [address] [place] [address] Result Comment: Carb oxyhemoglobin Reference Range for Smokers: 2.0-8.0% Performed By: #### 2 4344-4 ####[facility] LABCLIA [id number] [place] [address] [place] CO2 (BldV) [Partial pressure] 45 mm[Hg] Normal 42-55 [facility] Comment on above: Order Comment: Speci men Type: VENOUS BLOOD SPECIMENOrdering Facility: [facility] Address: [address] [place] [address] Performed By: #### 2 4344-4 ####[facility] LABCLIA [id number] [place] [address] [place] Glucose [Mass/Vol] 254 mg/dL High 60-105 [facility] Comment on above: Order Comment: Speci men Type: VENOUS BLOOD SPECIMENOrdering Facility: [facility] Address: [address] [place] [address] Performed By: #### 2 4344-4 ####[facility] LABCLIA [id number] [place] [address] [place] HCO3 (Bld) [Moles/Vol] 26 mmol/L Normal 24-28 [facility] Comment on above: Order Comment: Speci men Type: VENOUS BLOOD SPECIMENOrdering Facility: [facility] Address: [address] [place] [address] Performed By: #### 2 4344-4 ####[facility] LABCLIA [id number] [place] [address] [place] Hematocrit (Bld) [Volume fraction] 34.1 % Low 39.0-51.0 [facility] Comment on above: Order Comment: Speci men Type: VENOUS BLOOD SPECIMENOrdering Facility: [facility] Address: [address] [place] [address] Performed By: #### 2 4344-4 ####[facility] LABCLIA [id number] [place] [address] [place] Hemoglobin (Bld) [Mass/Vol] 11.1 g/dL Low 13.0-17.0 [facility] Comment on above: Order Comment: Speci men Type: VENOUS BLOOD SPECIMENOrdering Facility: [facility] Address: [address] [id number] Performed By: #### 2 4344-4 ####[facility] LABCLIA [id number] [address] [address] [place] Lactate [Moles/Vol] 2.6 mmol/L High 0.5-2.2 [facility] Comment on above: Order Comment: Speci men Type: VENOUS BLOOD SPECIMENOrdering Facility: [facility] Address: [address] [place] [address] Performed By: #### 2 4344-4 ####[facility] LABIA [id number] [place] [address] [place] Methemoglobin (Bld) [Mass fraction] 0.7 % Normal 0.0-1.5 [facility] Comment on above: Order Comment: Speci men Type: VENOUS BLOOD SPECIMENOrdering Facility: [facility] Address: [address] [place] [address] Performed By: #### 2 4344-4 ####[facility] LABIA [id number] [place] [address] [place] O2 THERAPY RA=Room Air Normal [facility] Comment on above: Order Comment: Speci men Type: VENOUS BLOOD SPECIMENOrdering Facility: [facility] Address: [address] [place], [place] [address] Performed By: #### 2 4344-4 ####[facility] LABCLIA [id number] [place] [id number] [place] Oxygen (BldV) [Partial pressure] 52 mm[Hg] High 35-45 [facility] Comment on above: Order Comment: Speci men Type: VENOUS BLOOD SPECIMENOrdering Facility: [facility] Address: [address] [place], [place] [address] Performed By: #### 2 4344-4 ####[facility] LABCLIA [id number] [address] [address] [place] Oxygen saturation in Venous blood 85 % Normal 60-85 [facility] Comment on above: Order Comment: Speci men Type: VENOUS BLOOD SPECIMENOrdering Facility: [facility] Address: [address] [place] [address] Performed By: #### 2 4344-4 ####[facility] LABCLIA [id number] [address] [address] [place] Oxyhemoglobin (BldV) [Mass fraction] 83 % Normal 60-85 [facility] Comment on above: Order Comment: Speci men Type: VENOUS BLOOD SPECIMENOrdering Facility: [facility] Address: [address] [place] [address] Performed By: #### 2 4344-4 ####[facility] LABCLIA [id number] [place] [address] [place] pH (BldV) 7.38 [pH] Normal 7.32-7.42 [facility] Comment on above: Order Comment: Speci men Type: VENOUS BLOOD SPECIMENOrdering Facility: [facility] Address: [address] [place] [address] Performed By: #### 2 4344-4 ####[facility] LABCLIA [id number] [place] [id number] [place] Potassium [Moles/Vol] 4.9 mmol/L Normal 3.5-5.0 [facility] Comment on above: Order Comment: Speci men Type: VENOUS BLOOD SPECIMENOrdering Facility: [facility] Address: [address] [place] [address] Performed By: #### 2 4344-4 ####[facility] LABCLIA [id number] [address] [address] [place] Sodium [Moles/Vol] 140 mmol/L Normal 136-144 [facility] Comment on above: Order Comment: Speci men Type: VENOUS BLOOD SPECIMENOrdering Facility: [facility] Address: [address] [place], [place] [address] Performed By: #### 2 4344-4 ####[facility] LABCLIA [id number] [facility] [id number] [place] [address] [place] Base excess Calc (BldV) [Moles/Vol] 4 mmol/L High 0-2 [facility] Comment on above: Order Comment: Speci men Type: BLOOD SPECIMEN Ordering Facility: [facility] Address: [address] [place] [address] Performed By: #### 2 4323-8, 3040-3, 52923-7, 67859-4, [id number] #### [facility] CLIA [id number] [address] [place] Carboxyhemoglobin (BldV) [Mass fraction] 1.3 % Normal 0.0-2.0 [facility] Comment on above: Order Comment: Speci men Type: BLOOD SPECIMEN Ordering Facility: [facility] Address: [address] [place] [address] Result Comment: Carb oxyhemoglobin Reference Range for Smokers: 2.0-8.0% Performed By: #### 2 4323-8, 3040-3, 76392-2, 59504-8, [id number] #### [facility] CLIA [id number] [address] [place] CO2 (BldV) [Partial pressure] 45 mm[Hg] Normal 42-55 [facility] Comment on above: Order Comment: Speci men Type: BLOOD SPECIMEN Ordering Facility: [facility] Address: [address] [place] [address] Performed By: #### 2 4323-8, 3040-3, 98862-8, 65447-3, [id number] #### [facility] CLIA [id number] [address] [place] CO2 adjusted to patient's actual temperature (BldV) [Partial pressure] Normal [facility] Comment on above: Order Comment: Speci men Type: BLOOD SPECIMEN Ordering Facility: [facility] Address: [address] [place], [place] [address] Performed By: #### 2 4323-8, 3040-3, 41161-7, 89511-4, [id number] #### [facility] CLIA [id number] 1000 [place] [address] [place] HCO3 (Bld) [Moles/Vol] 30 mmol/L High 24-28 [facility] Comment on above: Order Comment: Speci men Type: BLOOD SPECIMEN Ordering Facility: [facility] Address: [address] [place] [address] Performed By: #### 2 4323-8, 3040-3, 83722-0, 28383-5, [id number] #### [facility] CLIA [id number] 1000 [place] [address] [place] Hemoglobin (Bld) [Mass/Vol] 11.7 g/dL Low 13.0-17.0 [facility] Comment on above: Order Comment: Speci men Type: BLOOD SPECIMEN Ordering Facility: [facility] Address: [address] [place] [address] Performed By: #### 2 4323-8, 3040-3, 18872-8, 74137-9, [id number] #### [facility] CLIA [id number] 1000 [place] [address] [place] Lactate [Moles/Vol] 1.8 mmol/L Normal 0.5-2.2 [facility] Comment on above: Order Comment: Speci men Type: BLOOD SPECIMEN Ordering Facility: [facility] Address: [address] [place] [place] [address] Performed By: #### 2 4323-8, 3040-3, 61548-3, 59710-0, [id number] #### [facility] CLIA [id number] [address] [place] [address] [place] Methemoglobin (Bld) [Mass fraction] % Normal 0.0-1.5 [facility] Comment on above: Order Comment: Speci men Type: BLOOD SPECIMEN Ordering Facility: [facility] Address: [address] [facility] [address] Performed By: #### 2 4323-8, 3040-3, 32732-7, 77153-0, [id number] #### [facility] CLIA [id number] [address] OF [facility] O2 THERAPY RA=Room Air [facility] Comment on above: Order Comment: Speci men Type: BLOOD SPECIMEN Ordering Facility: [facility] Address: [address] [place], [place] [address] Performed By: #### 2 4323-8, 3040-3, 74179-8, 83276-1, [id number] #### [facility] CLIA [id number] 1000 [place] [address] [facility] [place] Oxygen (BldV) [Partial pressure] 41 mm[Hg] Normal 35-45 [facility] Comment on above: Order Comment: Speci men Type: BLOOD SPECIMEN Ordering Facility: [facility] Address: [address] [place] [address] Performed By: #### 2 4323-8, 3040-3, 11256-5, 39892-1, [id number] #### [facility] CLIA [id number] [address] Oxygen adjusted to patient's actual temperature (BldV) [Partial pressure] [facility] Comment on above: Order Comment: Speci men Type: BLOOD SPECIMEN Ordering Facility: [facility] Address: [address] [place], [place] [address] Performed By: #### 2 4323-8, 3040-3, 99736-2, 65029-2, [id number] #### [facility] CLIA [id number] 1000 [place] [address] [place] Oxygen saturation in Venous blood 77 % Normal 60-85 [facility] Comment on above: Order Comment: Speci men Type: BLOOD SPECIMEN Ordering Facility: [facility] Address: [address] [place], [place] [address] Performed By: #### 2 4323-8, 3040-3, 04085-2, 76633-7, [id number] #### [facility] CLIA [id number] 1000 [place] [address] [place] Oxyhemoglobin (BldV) [Mass fraction] 75 % Normal 60-85 [facility] Comment on above: Order Comment: Speci men Type: BLOOD SPECIMEN Ordering Facility: [facility] Address: [address] [place] [address] Performed By: #### 2 4323-8, 3040-3, 48341-4, 60105-8, [id number] #### [facility] CLIA [id number] 1000 [place] [address] [place] pH (BldV) 7.42 [pH] Normal 7.32-7.42 [facility] Comment on above: Order Comment: Speci men Type: BLOOD SPECIMEN Ordering Facility: [facility] Address: [address] [place] [address] Performed By: #### 2 4323-8, 3040-3, 37189-8, 59052-1, [id number] #### [facility] CLIA [id number] [address] pH adjusted to patient's actual temperature (BldV) Normal [facility] Comment on above: Order Comment: Speci men Type: BLOOD SPECIMEN Ordering Facility: [facility] Address: [address] [place] [address] Performed By: #### 2 4323-8, 3040-3, 43330-8, 91285-5, [id number] #### [facility] CLIA [id number] [address] [place] Potassium [Moles/Vol] 4.8 mmol/L Normal 3.5-5.0 [facility] Comment on above: Order Comment: Speci men Type: BLOOD SPECIMEN Ordering Facility: [facility] Address: [address] [place] [address] Performed By: #### 2 4323-8, 3040-3, 55208-6, 87762-7, [id number] #### [facility] CLIA [id number] [address] HIGH SENSITIVITY TROPONIN To n 10-18-2024 Troponin T.cardiac High sensitivity method [Mass/Vol] 50 ng/L High <12 [facility] Comment on above: Order Comment: Speci men Type: BLOOD SPECIMENOrdering Facility: [facility] Address: [address] [place] [address] Performed By: #### 2 777-1, 18223-2, 73533-7, HSTNT, LIPNF, CYSTC ####[facility] LABCLIA [id number] [address] [address] [place] HIGH SENSITIVITY TROPONIN T (INITIAL)on 10-18-2024 Troponin T.cardiac High sensitivity method [Mass/Vol] 25 ng/L High <12 [facility] Comment on above: Order Comment: Speci men Type: BLOOD SPECIMEN Ordering Facility: [facility] Address: [address] [place] [address] Performed By: #### 2 4323-8, 3040-3, 12187-4, 90661-7, [id number] #### [facility] CLIA [id number] 1000 [place] [address] [place] HIGH SENSITIVITY TROPONIN T (SECOND)on 10-18-2024 Troponin T.cardiac High sensitivity method [Mass/Vol] 35 ng/L High <[address] [place] [address] Comment on above: Order Comment: Speci men Type: BLOOD SPECIMEN Ordering Facility: [facility] Address: [address] [place] [address] Performed By: #### 2 4323-8, 3040-3, 06331-4, 88586-1, [id number] #### [facility] CLIA [id number] [address] [place] [address] [place] HISTORY PHYSICALon HISTORY PHYSICAL Normal [facility] LIPID PANEL, NONFASTINGon Cholesterol [Mass/Vol] 92 mg/dL Normal <200 [facility] Comment on above: Order Comment: Speci men Type: BLOOD SPECIMENOrdering Facility: [facility] Address: [address] [place] [address] Result Comment: <200 mg/dL, Desirable 200-239 mg/dL, Borderline high>239 mg/dL, High Performed By: #### 2 777-1, 98061-9, , HSTNT, LIPNF, CYSTC ####[facility] LABCLIA [id number] [place] [address] [place] HDL CHOLESTEROL, NF 41 mg/dL Normal >39 [facility] Comment on above: Order Comment: Speci men Type: BLOOD SPECIMENOrdering Facility: [facility] Address: [address] [place] [address] Result Comment: 40-5 9 mg/dL, Acceptable>59 mg/dL, High: Negative risk factor for coronary heart disease<40 mg/dL, Low: Positive risk factor for coronary heart disease Performed By: #### 2 777-1, , , HSTNT, LIPNF, CYSTC ####[facility] LABCLIA [id number] [place] [address] [place] LDL CHOLESTEROL, NF 19 mg/dL Normal <100 [facility] Comment on above: Order Comment: Speci men Type: BLOOD SPECIMENOrdering Facility: [facility] Address: [address] [place] [address] Result Comment: <100 mg/dL, Optimal 100-129 mg/dL, Near optimal/above optimal 130-159 mg/dL, Borderline high 160-189 mg/dL, High>189 mg/dL, Very highSecondary prevention optimal LDL Cholesterol levels are recommended to be < 70 mg/dL Performed By: #### 2 777-1, , , HSTNT, LIPNF, CYSTC ####[facility] LABCLIA [id number] [place] [address] [place] LDL/HDL RATIO, NF 0.46 mg/dL Normal <2.54 [facility] Comment on above: Order Comment: Speci men Type: BLOOD SPECIMENOrdering Facility: [facility] Address: [address] [place] [address] Result Comment: Refe rence:1. National Cholesterol Education Program ATP III Guideline At-A-Glance Quick Desk Reference: National Heart, Lung, and Blood Star. National Institutes of Health. 2001: NIH Publication No. 01-3305.2. An International Atherosclerosis Society position paper: global recommendations for the management of dyslipidemia: executive summary, Atherosclerosis. 2014: 232(2):410-413. Performed By: #### 2 777-1, 76269-7, 36087-2, HSTNT, LIPNF, CYSTC ####[facility] LABCLIA [id number] [place] [address] [place] NON HDL CHOL, NF 51 mg/dL Normal <130 [facility] Comment on above: Order Comment: Speci men Type: BLOOD SPECIMENOrdering Facility: [facility] Address: [address] [place] [address] Result Comment: <130 mg/dL, Optimal 130-159 mg/dL, Near optimal/above optimal 160-189 mg/dL, Borderline high 190-219 mg/dL, High>219 mg/dL, Very highSecondary prevention optimal non HDL Cholesterol levels are recommended to be <100 mg/dL Performed By: #### 2 777-1, 94802-4, 33362-6, HSTNT, LIPNF, CYSTC ####[facility] LABCLIA [id number] [place] [address] [place] T CHOL/HDL RATIO NF 2.24 mg/dL Normal <5.10 [facility] Comment on above: Order Comment: Speci men Type: BLOOD SPECIMENOrdering Facility: [facility] Address: [address] [place] [address] Performed By: #### 2 777-1, 81401-3, 06623-9, HSTNT, LIPNF, CYSTC ####[facility] LABCLIA [id number] [place] [address] [place] TRIGLYCERIDES, NF 162 mg/dL High <150 [facility] Comment on above: Order Comment: Speci men Type: BLOOD SPECIMENOrdering Facility: [facility] Address: [address], [place] [address] Result Comment: <150 mg/dL, Normal 150-199 mg/dL, Borderline high 200-499 mg/dL, High>499 mg/dL, Very high Performed By: #### 2 777-1, 16866-2, , HSTNT, LIPNF, CYSTC ####[facility] LABCLIA [id number] [address] [address] [place] VLDL CHOLESTEROL, NF 32 mg/dL High <30 [facility] Comment on above: Order Comment: Speci men Type: BLOOD SPECIMENOrdering Facility: [facility] Address: [address] [place] [address] Performed By: #### 2 777-1, , , HSTNT, LIPNF, CYSTC ####[facility] LABCLIA [id number] [place] [address] [place] Lipase SerPl-cCncon 10-18-19 25 Lipase [Catalytic activity/Vol] 99 U/L High 16-61 [facility] Comment on above: Order Comment: Speci men Type: BLOOD SPECIMEN Ordering Facility: [facility] Address: [address] [place] [address] Performed By: #### 2 4323-8, 3040-3, 59548-0, , [id number] #### [facility] CLIA [id number] [address] [place] [address] [place] Magnesium SerPl-mCncon 10-18 Magnesium [Mass/Vol] 1.6 mg/dL Low 1.7-2.3 [facility] Comment on above: Order Comment: Speci men Type: BLOOD SPECIMENOrdering Facility: [facility] Address: [address] [place] [address] Performed By: #### 2 777-1, 46885-4, , HSTNT, LIPNF, CYSTC ####[facility] LABCLIA [id number] [place] [id number] [place] Magnesium [Mass/Vol] 1.6 mg/dL Low 1.7-2.3 [facility] Comment on above: Order Comment: Jose Cruz johnson Type: BLOOD SPECIMEN Ordering Facility: [facility] Address: [address] [place] [address] Performed By: #### 2 4323-8, 3040-3, 98825-1, 18194-7, [id number] #### [facility] CLIA [id number] [address] STATES [facility] NT-proBNP [facility] Natriuretic peptide.B prohormone N-Terminal [Mass/Vol] 415 pg/mL High <125 [facility] Comment on above: Order Comment: Jose Cruz johnson Type: BLOOD SPECIMEN Ordering Facility: [facility] Address: [address] [place] [address] Performed By: #### 2 4323-8, 3040-3, 91786-2, 84337-6, [id number] #### [facility] CLIA [id number] [address] [place] PT panel Coag (PPP)on 2024 INR Coag (PPP) [Relative time] 1.0 {INR} Normal 0.9-1.3 [facility] Comment on above: Order Comment: Jose Cruz johnson Type: BLOOD SPECIMENOrdering Facility: [facility] Address: [address] [place] [address] Result Comment: Antionette min K Antagonist (VKA) Therapeutic Range: INR 2 to 3 (Target INR of 2.5)Note: For patients treated with VKA drugs, such as warfarin, the [place] [employer] 2012 Guideline recommends a therapeutic INR range of 2 to 3 (target INR of 2.5). This recommendation includes high-risk patients with antiphospholipid syndrome with previous arterial or venous thromboembolism, current-generation mechanical or bioprosthetic aortic heart valve replacement.Note: Patients with mechanical aortic valve replacement and additional risk factors for thromboembolic events (atrial fibrillation, previous thromboembolism, LV dysfunction, hypercoagulable conditions) or an older generation mechanical AVR (i.e., ball in-Cage) or any mechanical MVR should have a INR therapeutic range of 2.5 to 3.5 (target INR of 3).benito Pratt. Chest 2012, 141:7S-47SAngelica PAYNE et al. JACC 2017, 70: 252-289 Performed By: #### 3 4528-0, 53378-8 ####[facility] LABCLIA [id number] [place] [address] [place] PT Coag (PPP) [Time] 10.6 s Normal 9.7-13.0 [facility] Comment on above: Order Comment: Speci men Type: BLOOD SPECIMENOrdering Facility: [facility] Address: [address] [place] [address] Performed By: #### 3 4528-0, 29460-3 ####[facility] LABCLIA [id number] [place] [address] [place] INR Coag (PPP) [Relative time] 1.0 {INR} Normal 0.9-1.3 [facility] Comment on above: Order Comment: Speci men Type: BLOOD SPECIMEN Ordering Facility: [facility] Address: [address] [place] [address] Result Comment: Antionette min K Antagonist (VKA) Therapeutic Range: INR 2 to 3 (Target INR of 2.5) Note: For patients treated with VKA drugs, such as warfarin, the [place] [employer] 2012 Guideline recommends a therapeutic INR range of 2 to 3 (target INR of 2.5). This recommendation includes high-risk patients with antiphospholipid syndrome with previous arterial or venous thromboembolism, current-generation mechanical or bioprosthetic aortic heart valve replacement. Note: Patients with mechanical aortic valve replacement and additional risk factors for thromboembolic events (atrial fibrillation, previous thromboembolism, LV dysfunction, hypercoagulable conditions) or an older generation mechanical AVR (i.e., ball in-Cage) or any mechanical MVR should have a INR therapeutic range of 2.5 to 3.5 (target INR of 3). benito Pratt. Chest 2012, 141:7S-47S Angelica PAYNE et al. JACC 2017, 70: 252-289 Performed By: #### 2 4323-8, 3040-3, 66156-3, 40067-8, [id number] #### [facility] CLIA [id number] [address] [place] [address] [place] PT Coag (PPP) [Time] 10.6 s Normal 9.7-13.0 [facility] Comment on above: Order Comment: Speci men Type: BLOOD SPECIMEN Order[facility] Facility: [facility] Address: [address] [place] [address] Performed By: #### 2 4323-8, 3040-3, 31878-6, 76993-4, [id number] #### [facility] CLIA [id number] 1000 [place] [id number] [place] Phosphate SerPl-mCncon 10-18 Phosphate [Mass/Vol] 3.3 mg/dL Normal 2.7-4.8 [facility] Comment on above: Order Comment: Speci men Type: BLOOD SPECIMENOrdering Facility: [facility] Address: [address] [place] [address] Performed By: #### 2 777-1, 45347-9, 83624-0, HSTNT, LIPNF, CYSTC ####[facility] LABCLIA [id number] [place] [address] [place] STAPHYLOCOCCUS AUREUS AND MR SA SCREEN, PCR, NASALon 10-18-2024 S. aureus and MRSA panel JUAN F+probe (Nose) Not detected Normal Not Detected [facility] Comment on above: Order Comment: Speci men Type: SWABOrdering Facility: [facility] Address: [address] [place] [address] Performed By: #### S APCR ####[facility] LABCLIA [id number] [place] [address] [place] TYPE + SCREENon 10-18-2024 ABO O Normal [facility] Comment on above: Order Comment: Speci men Type: BLOOD SPECIMENOrdering Facility: [facility] Address: [address] [place] [address] Performed By: #### T SCR ####[facility] BANKCLIA [id number] [place] [address] [place] Rh Nom (Bld) Positive Normal [facility] Comment on above: Order Comment: Speci men Type: BLOOD SPECIMENOrdering Facility: [facility] Address: [address] [place] [address] Performed By: #### T SCR ####[facility] BANKCLIA [id number] [address] [place] TYPE AND SCREEN EXPIRATION 10/21/2024 23:59 Normal [facility] Comment on above: Order Comment: Speci men Type: BLOOD SPECIMENOrdering Facility: [facility] Address: [address] [place] [address] Performed By: #### T SCR ####[facility] BLO[facility] BANKCLIA [id number] [place] [address] [place] aPTT PPPon 10-18-2024 aPTT Coag (PPP) [Time] 28.4 s Normal 23.0-32.4 [facility] Comment on above: Order Comment: Speci men Type: BLOOD SPECIMENOrdering Facility: [facility] Address: [address] [place] [address] Performed By: #### 3 4528-0, 78242-7 ####[facility] LABCLIA [id number] [place] [address] [place] aPTT Coag (PPP) [Time] 27.9 s Normal 23.0-32.4 [facility] Comment on above: Order Comment: Speci men Type: BLOOD SPECIMEN Order[facility] Facility: [facility] Address: [address] [place] [address] Performed By: #### 2 4323-8, 3040-3, 71579-8, 01034-7, [id number] #### [facility] CLIA [id number] [address] [place] [address] [place] Basic metabolic 2000 panelon 10-16-2024 Anion gap [Moles/Vol] 12 mmol/L Normal 8-15 [facility] Comment on above: Order Comment: Speci men Type: BLOOD SPECIMENOrdering Facility: [facility] Address: [address] [place] [address] Performed By: #### 2 4321-2 ####[facility]ORY[facility] [id number] [place] [address] [place] Calcium [Mass/Vol] 9.8 mg/dL Normal 8.5-10.2 [facility] Comment on above: Order Comment: Speci men Type: BLOOD SPECIMENOrdering Facility: [facility] Address: [address] [place] [address] Performed By: #### 2 4321-2 ####[facility] LABORATORYCLIA [id number] [place] [address] [place] Chloride [Moles/Vol] 101 mmol/L Normal 98-107 [facility] Comment on above: Order Comment: Speci men Type: BLOOD SPECIMENOrdering Facility: [facility] Address: [address] [place] [address] Performed By: #### 2 4321-2 ####[facility] [id number] [place] [address] [place] CO2 [Moles/Vol] 24 mmol/L Normal 22-30 [facility] Comment on above: Order Comment: Speci men Type: BLOOD SPECIMENOrdering Facility: [facility] Address: [address] [place] [address] Performed By: #### 2 4321-2 ####[facility]ORY[facility]IA [id number] [place] [address] [place] Creatinine [Mass/Vol] 0.94 mg/dL Normal 0.73-1.22 [facility] Comment on above: Order Comment: Speci men Type: BLOOD SPECIMENOrdering Facility: [facility] Address: [address] [place] [address] Performed By: #### 2 4321-2 ####[facility] LABORATORYCLIA [id number] [place] [address] [place] Creatinine and Glomerular filtration rate.predicted panel (S/P/Bld) 86 mL/min/1.73m??? Normal >=60 [facility] Comment on above: Order Comment: Jose Cruz johnson Type: BLOOD SPECIMENOrdering Facility: [facility] Address: [address] [place] [address] Result Comment: Mary Kay mated Glomerular Filtration Rate (eGFR) is calculated using the 2020 CKD-EPI creatinine equation. This equation utilizes serum creatinine, sex, and age as parameters. The creatinine assay has traceable calibration to isotope dilution-mass spectrometry. Refer to KDIGO guidelines for clinical interpretation. In patients with unstable renal function, e.g. those with acute kidney injury, the eGFR may not accurately reflect actual GFR. Performed By: #### 2 4321-2 ####[facility] LABORATORYCLIA [id number] [place] [address] [place] Glucose [Mass/Vol] 245 mg/dL High 74-99 [facility] Comment on above: Order Comment: Jose Cruz johnson Type: BLOOD SPECIMENOrdering Facility: [facility] Address: [address] [place] [address] Result Comment: The [place] [employer] (ADA) provides guidance for cutoff values for fasting glucose and random glucose. The ADA defines fasting as no caloric intake for at least 8 hours. Fasting plasma glucose results between 100 to 125 mg/dL indicate increased risk for diabetes (prediabetes).Fasting plasma glucose results greater than or equal to 126 mg/dL meet the criteria for diagnosis of diabetes. In the absence of unequivocal hyperglycemia, results should be confirmed by repeat testing. In a patient with classic symptoms of hyperglycemia or hyperglycemic crisis, random plasma glucose results greater than or equal to 200 mg/dL meet the criteria for diagnosis of diabetes.Reference: Standards of Medical Care in Diabetes 2016, [place] [employer]. Diabetes Care. 2016.39(Suppl 1). Performed By: #### 2 4321-2 ####[facility] LABORATORYCLIA [id number] [place] [id number] [place] Potassium [Moles/Vol] 5.3 mmol/L High 3.7-5.1 [facility] Comment on above: Order Comment: Speci men Type: BLOOD SPECIMENOrdering Facility: [facility] Address: [address] [place] [address] Performed By: #### 2 4321-2 ####[facility] LABORATORYCLIA [id number] [place] [id number] [place] Sodium [Moles/Vol] 137 mmol/L Normal 136-144 [facility] Comment on above: Order Comment: Speci men Type: BLOOD SPECIMENOrdering Facility: [facility] Address: [address] [place] [address] Performed By: #### 2 4321-2 ####[facility] LABORATORYCLIA [id number] [place] [address] [place] Urea nitrogen [Mass/Vol] 23 mg/dL Normal 9-24 [facility] Comment on above: Order Comment: Speci men Type: BLOOD SPECIMENOrdering Facility: [facility] Address: [address] [place] [address] Performed By: #### 2 4321-2 ####[facility] LABORATORYCLIA [id number] [place] [address] [place] CNOVon 10-09-2024 CNOV Normal [facility] CNPTOUTREACHon 10-09-2024 CNPTOUTREACH Normal [facility] CBC panel Auto (Bld)on 10-06 Erythrocyte distribution width (RBC) [Ratio] 12.4 % Normal 11.5-15.0 [facility] Comment on above: Order Comment: Speci men Type: BLOOD SPECIMEN [facility] Address: [address] [place] [address] Performed By: #### 2 4323-8, 3040-3, 64420-3, 74644-4, [id number] #### [facility] CLIA [id number] [address] [place] [address] [place] Hematocrit (Bld) [Volume fraction] 33.0 % Low 39.0-51.0 [facility] Comment on above: Order Comment: Speci men Type: BLOOD SPECIMEN [facility] Address: [address] [place], [place] [address] Performed By: #### 2 4323-8, 3040-3, 89409-2, 89819-0, [id number] #### [facility] CLIA [id number] [address] [place] Hemoglobin (Bld) [Mass/Vol] 11.0 g/dL Low 13.0-17.0 [facility] Comment on above: Order Comment: Speci men Type: BLOOD SPECIMEN [facility] Address: [address] [place] [address] Performed By: #### 2 4323-8, 3040-3, 94532-9, 66004-4, [id number] #### [facility] CLIA [id number] [address] MCH (RBC) [Entitic mass] 30.4 pg Normal 26.0-34.0 [facility] Comment on above: Order Comment: Speci men Type: BLOOD SPECIMEN [facility] Address: [address] [place] [address] Performed By: #### 2 4323-8, 3040-3, 25609-6, 57381-0, [id number] #### [facility] CLIA [id number] [address] STATES OF [facility] MCHC (RBC) [Mass/Vol] 33.3 g/dL Normal 30.5-36.0 [facility] Comment on above: Order Comment: Speci men Type: BLOOD SPECIMEN [facility] Address: [address] [place] [address] Performed By: #### 2 4323-8, 3040-3, 73072-9, 86273-1, [id number] #### [facility] CLIA [id number] [address] MCV (RBC) [Entitic vol] 91.2 fL Normal 80.0-100.0 [facility] Comment on above: Order Comment: Speci men Type: BLOOD SPECIMEN [facility] Address: [address] [place] [address] Performed By: #### 2 4323-8, 3040-3, 82690-1, 85308-7, [id number] #### [facility] CLIA [id number] [address] [place] [address] [place] Nucleated RBC (Bld) [#/Vol] 10*3/uL Normal <0.01 [facility] Comment on above: Order Comment: Speci men Type: BLOOD SPECIMEN [facility] Address: [address] [place] [address] Performed By: #### 2 4323-8, 3040-3, 74780-1, 97011-9, [id number] #### [facility] CLIA [id number] [address] [place] [address] [place] Platelet mean volume (Bld) [Entitic vol] 9.9 fL Normal 9.0-12.7 [facility] Comment on above: Order Comment: Speci men Type: BLOOD SPECIMEN [facility] Address: [address] [place] [address] Performed By: #### 2 4323-8, 3040-3, 63461-2, 97649-7, [id number] #### [facility] CLIA [id number] [address] [place] [address] [facility] [place] Platelets (Bld) [#/Vol] 215 10*3/uL Normal 150-400 [facility] Comment on above: Order Comment: Speci men Type: BLOOD SPECIMEN [facility] Address: [address] [place] [address] Performed By: #### 2 4323-8, 3040-3, 76081-5, 33053-6, [id number] #### [facility] CLIA [id number] [address] [place] [address] [place] RBC (Bld) [#/Vol] 3.62 10*6/uL Low 4.20-6.00 [facility] Comment on above: Order Comment: Speci men Type: BLOOD SPECIMEN [facility] Address: [address] [place] [address] Performed By: #### 2 4323-8, 3040-3, 30830-6, 66381-3, [id number] #### [facility] CLIA [id number] [address] [place] [address] [place] WBC (Bld) [#/Vol] 8.17 10*3/uL Normal 3.70-11.00 [facility] Comment on above: Order Comment: Speci men Type: BLOOD SPECIMEN [facility] Address: [address] [place], [place] [address] [address] Performed By: #### 2 4323-8, 3040-3, 94855-4, 75619-8, [id number] #### [facility] CLIA [id number] [address] [place] [address] [place] CNDSon 10-06-2024 CNDS HNO ID: [id number] Author: KENNETH ANTUNEZ MD Service: Hospital Medicine Author Type: Physician Type: Discharge Summary Filed: 10/06/2024 12:04 Note Text: DISCHARGE SUMMARY PATIENT NAME: Shilo Hathaway Code Status: Full Code Highest Readmission Risk Score: 19 The 30 day readmissions risk score is derived from an internally validated risk model which evaluates patient level characteristics, utilization history, medication orders and lab results up until the day of discharge. Patients with a score of 40 or above are considered highest risk for readmission. Specific patient level drivers will be listed at the bottom of the summary. Admission Information Admission Information ADMIT DATE: 10/03/2024 DISCHARGE DATE: 10/06/24 MY DOCTORS AND MEDICAL TEAM: My Main Hospital Doctor: Kenneth Antunez MD Primary Care Provider: Paulina Severino MD My Medical Team Members: Treatment Team: Attending Provider: Kenneth Antunez MD Consulting: Gem Walden MD MY CONDITION AT DISCHARGE: Stable REASON I WAS IN THE HOSPITAL: high potassium level SUMMARY OF WHAT HAPPENED WHILE I WAS IN THE HOSPITAL: you were sent in to the hospital due to high potassium level on outpatient blood work. You were admitted to the ICU and were treated with medications to lower down your potassium level. Your potassium level improved, per nephrology recommendations your home aldactone is being stopped at the time of discharge. OTHER PROBLEMS/DIAGNOSIS: Principal Problem: Hyperkalemia Active Problems: PVD (peripheral vascular disease) (HCC) Type 2 DM with CKD stage 3 and hypertension (HCC) GA (acute kidney injury) ([facility]) Obesity, Class III, BMI >= 40 Sleep apnea Resolved Problems: Diarrhea Hypomagnesemia OPERATIONS PERFORMED WHILE IN THE HOSPITAL: None IMPORTANT TEST/PROCEDURES: No procedures performed TEST RESULTS NOT AVAILABLE AT THIS TIME: No pending results Discharge Disposition Discharge Disposition: Home With Self Care Additional Provider to Provider Information: Shilo Hathaway is a 73 year old male presented with past medical history of type 2 DM, CAD, HLD, PAD s/p b/l JUANI was sent in to the ER when he was found to have potassium>7 on outpatient routine blood work. He was admitted to the ICU, nephrology was consulted, his home lisinopril and aldactone were held. He was treated with lokelma, sodium bicarb. His potassium decreased to 4.8 and he was monitored on the regular nursing floor for another night. Potassium continued to remain within normal limits. His home aldactone is being stopped at the time of discharge per nephrology recommendations. He should follow up with pcp as outpatient in 3-4 days. Treatment Team: Attending Provider: Kenneth Antunez MD Consulting: Gem Walden MD Transitions of Care Critical Issues: LAB MONITORING NEEDED: bmp LABS AND PROCEDURES PENDING AT DISCHARGE: FOLLOW-UP APPOINTMENTS ALREADY SCHEDULED WITH A [facility] PROVIDER: Future Appointments Date Time Provider Department Center 12/01/2024 11:20 AM PST [place] [facility] [place] [facility] 01/15/2025 1:00 PM Davin Moran MD [facility] ALLERGIES Allergen Reactions Atorvastatin Myalgia Levofloxacin Unknown Metformin Diarrhea DISCHARGE MEDICATION: Medication List CONTINUE taking these medications amLODIPine 5 mg tablet Commonly known as: NORVASC Take 1 tablet by mouth once daily. ascorbic acid (vitamin C) 500 mg tablet Commonly known as: VITAMIN C Take 1 tablet by mouth once daily. aspirin 81 mg chewable tablet Take 1 tablet by mouth once daily. clopidogrel 75 mg tablet Commonly known as: PLAVIX Take 1 tablet by mouth once daily DEXCOM G7 SERVICE BAR CASHIER Misc Generic drug: Blood-Glucose Meter,Continuous Check glucose throughout the day. Patient is on insulin DEXCOM G7 SENSOR Katlyn Generic drug: Blood-Glucose Sensor 1 Each every 2 weeks. Patient is on insulin escitalopram oxalate 10 mg tablet Commonly known as: LEXAPRO Take 1 tablet by mouth once daily. fenofibrate nanocrystallized 145 mg tablet Commonly known as: TRICOR Take 1 tablet by mouth once daily. FREESTYLE CL 2 SENSOR Kit Generic drug: flash glucose sensor Apply new sensor every fourteen (14) days to upper arm. gabapentin 600 mg tablet Commonly known as: NEURONTIN Take 1 tablet by mouth four times daily for 90 days. insulin lispro 100 unit/mL Commonly known as: HumaLOG KWIKPEN INJECT 12 UNITS SUBCUTANEOUSLY THREE TIMES DAILY BEFORE MEALS - ADD 2 UNITS IF GLUCOSE IS OVER 250 lisinopril 5 mg tablet Commonly known as: ZESTRIL Take 1 tablet by mouth once daily. metoprolol succinate ER 25 mg 24 hr tablet Commonly known as: TOPROL XL Take 1 tablet by mouth once daily. MULTI VITAMIN ORAL pantoprazole DR 40 mg tablet Commonly known as: PROTONIX Take 1 tablet by mouth once daily. rivaroxaban 10 mg tablet Commonly known as: XARELTO Take 1 (more content not included)... [facility] CONSULT PROGon 10-06-2024 CONSULT PROG HNO ID: [id number] Author: GEM WALDEN MD Service: Nephrology Author Type: Physician Type: Consult Progress Note Filed: 10/06/2024 08:38 Note Text: NEPHROLOGY CONSULT PROGRESS NOTE Subjective INTERVAL HISTORY: The patient was seen and examined . No acute event overnight. PERTINENT ROS: GENERAL: No fever/chills. RESPIRATORY: Negative for cough, wheezing or shortness of breath. CARDIOVASCULAR: Negative for chest pain or palpitations. GI: Negative for nausea, vomiting, Diarrhea, abdominal pain. : Negative for dysuria and hematuria MEDICATIONS: Current Facility-Administered Medications Medication Dose Route Frequency dextrose 40 % 15 g 15 g ORAL PRN Or glucagon 1 mg injection 1 mg INTRAMUSCULAR PRN Or dextrose 10% iv bolus 12.5 g INTRAVENOUS PRN gabapentin 600 mg tab(s) (NEURONTIN) 600 mg ORAL QID rosuvastatin 20 mg tab(s) (CRESTOR) 20 mg ORAL DAILY tamsulosin 0.4 mg cap(s) (FLOMAX) 0.4 mg ORAL DAILY metoprolol tartrate (short acting) 12.5 mg tab(s) (LOPRESSOR) 12.5 mg ORAL q 12 H clopidogrel 75 mg tab(s) (PLAVIX) 75 mg ORAL DAILY aspirin 81 mg chewable tab(s) 81 mg ORAL DAILY escitalopram oxalate 10 mg tab(s) (LEXAPRO) 10 mg ORAL DAILY NaCl 0.9% iv flush bag 20 mL INTRAVENOUS PRN insulin glargine 22 Units pen (long acting) 22 Units SUBCUTANEOUS AT BEDTIME insulin lispro injection (rapid acting) (ADMElog) SUBCUTANEOUS w MEALS AND HS sodium bicarbonate 650 mg tab(s) 650 mg ORAL TID amLODIPine 5 mg tab(s) (NORVASC) 5 mg ORAL DAILY rivaroxaban 10 mg tab(s) (XARELTO) 10 mg ORAL DAILY Objective PHYSICAL EXAM: BP 153/58 Pulse 69 Temp 36.5 ?C (97.7 ?F) (Oral) Resp 16 Ht 114.3 cm (3' 9) Wt 72.2 kg (159 lb 2.8 oz) SpO2 98% BMI 55.26 kg/m? Intake/Output Summary (Last 24 hours) at 10/06/2024 0836 Last data filed at 10/05/2024 1731 Gross per 24 hour Intake -- Output 1500 ml Net -1500 ml GENERAL: NAD HEENT : NCAT, MMM and pink EYES: Conjunctiva -Pallor, Non icterus sclera. NECK: supple, No JVD, LUNGS: CTA without rales or wheeze, diminished breath sounds, CV: no murmurs, clicks, or gallops. ABDOMEN: soft, NT, BS normal EDEMA : no Lower extremity/ no Dependent edema DATA: Diagnostic tests reviewed for today's visit: Most recent labs and imaging results. Recent Labs 10/06/24 0552 10/05/24 1226 10/05/24 0403 10/04/24 1044 10/04/24 0433 10/04/24 0432 WBC 8.17 -- 6.87 -- 10.66 -- HB 11.0* -- 9.8* -- 10.6* -- HCT 33.0* -- 29.6* -- 33.1* -- PLT 215 -- 194 -- 233 -- NA 140 135* 139 < > -- 138 K 4.8 4.8 5.5* < > -- 6.2* CHLOR 105 101 107 < > -- 105 CO2 26 22 24 < > -- 22 BUN 23 24 27* < > -- 30* CREAT 1.20 1.12 1.31* < > -- 1.68* GLUC 148* 219* 100* < > -- 110* CA 9.0 8.9 8.7 < > -- 9.3 MG 1.7 -- 1.8 -- -- 1.5* P 3.4 3.4 3.9 < > -- 4.0 < > = values in this interval not displayed. Recent Labs 10/06/24 0552 10/05/24 1226 10/05/24 0403 10/04/24 1044 10/03/24 1640 TPROT 7.1 -- 6.4 -- 7.7 ALB 4.1 3.9 3.7* < > 4.6 ALT 10 -- 8* -- 12 AST 13* -- 13* -- 15 ALKPHOS 55 -- 49 -- 57 TBILI 0.3 -- 0.3 -- 0.4 < > = values in this interval not displayed. Assessment/Plan 1. Hyperkalemia likely in the setting of being on lisinopril and Aldactone. As a risk factor including patient with diabetes and hypertension. Also patient is on metoprolol 2. GA on chronic kidney disease stage III 3. Diarrhea 4. Type 2 diabetes 5. Hypertension 6. Hypomagnesemia Plan of management Renal function: Continues to improve creatinine decreased to 1.20 mg/dL. BUN at 23. Patient is nonoliguric and urine output of 2.2 L Electrolytes: Hyperkalemia-now resolved last potassium is at 4.8 Patient was treated with sodium bicarbonate and Lokelma as well as D10 and insulin, calcium gluconate in ICU. All other electrolytes are within normal limits Continue to hold Aldactone and lisinopril. Will discontinue sodium bicarb Upon discharge would start patient on lisinopril 5 mg daily and check renal function panel in 1 week. Acid-base: No significant acid-base disturbance Attention: On Norvasc 5 mg daily metoprolol 12.5 mg every 12 hours Normal [facility] Comprehensive metabolic 2000 panelon 10-06-2024 Albumin [Mass/Vol] 4.1 g/dL Normal 3.9-4.9 [facility] Comment on above: Order Comment: Speci men Type: BLOOD SPECIMEN [facility] Address: [address] [place] [address] Performed By: #### 2 4323-8, 3040-3, 69742-2, 51594-9, [id number] #### [facility] CLIA [id number] [address] STATES [facility] ALP [Catalytic activity/Vol] 55 U/L Normal 38-113 [facility] Comment on above: Order Comment: Speci men Type: BLOOD SPECIMEN [facility] Address: [address] [place] [address] Performed By: #### 2 4323-8, 3040-3, 28678-2, 20948-4, [id number] #### [facility] CLIA [id number] [address] [place] [address] [place] ALT [Catalytic activity/Vol] 10 U/L Normal 10-54 [facility] Comment on above: Order Comment: Speci men Type: BLOOD SPECIMEN [facility] Address: [address] [place] [address] Performed By: #### 2 4323-8, 3040-3, 86065-5, 89408-8, [id number] #### [facility] CLIA [id number] [address] [place] Anion gap [Moles/Vol] 9 mmol/L Normal 8-15 [facility] Comment on above: Order Comment: Speci men Type: BLOOD SPECIMEN [facility] Address: [address] [place] [address] Performed By: #### 2 4323-8, 3040-3, 21229-6, 65092-3, [id number] #### [facility] CLIA [id number] [address] [place] [address] [place] AST [Catalytic activity/Vol] 13 U/L Low 14-40 [facility] Comment on above: Order Comment: Speci men Type: BLOOD SPECIMEN [facility] Address: [address] [place] [address] Performed By: #### 2 4323-8, 3040-3, 41514-4, 22354-9, [id number] #### [facility] CLIA [id number] [address] [place] [address] [place] Bilirubin [Mass/Vol] 0.3 mg/dL Normal 0.2-1.3 [facility] Comment on above: Order Comment: Speci men Type: BLOOD SPECIMEN [facility] Address: [address] [place] [address] Performed By: #### 2 4323-8, 3040-3, 46407-0, 74671-5, [id number] #### [facility] CLIA [id number] [address] [place] [address] [place] Calcium [Mass/Vol] 9.0 mg/dL Normal 8.5-10.2 [facility] Comment on above: Order Comment: Speci men Type: BLOOD SPECIMEN [facility] Address: [address] [place] [address] Performed By: #### 2 4323-8, 3040-3, 21045-5, 66559-0, [id number] #### [facility] CLIA [id number] [address] [place] [address] [place] Chloride [Moles/Vol] 105 mmol/L Normal 98-107 [facility] Comment on above: Order Comment: Speci men Type: BLOOD SPECIMEN [facility] Address: [address] [place] [address] Performed By: #### 2 4323-8, 3040-3, 06101-9, 91718-7, [id number] #### [facility] CLIA [id number] [address] [place] [address] [place] CO2 [Moles/Vol] 26 mmol/L Normal 22-30 [facility] Comment on above: Order Comment: Speci men Type: BLOOD SPECIMEN [facility] Address: [address] [place] [address] Performed By: #### 2 4323-8, 3040-3, 43900-7, 56477-1, [id number] #### [facility] CLIA [id number] [address] [place] [address] [place] Creatinine [Mass/Vol] 1.20 mg/dL Normal 0.73-1.22 [facility] Comment on above: Order Comment: Jose Cruz johnson Type: BLOOD SPECIMEN [facility] Address: [address] [place] [address] Performed By: #### 2 4323-8, 3040-3, 67221-5, 28404-4, [id number] #### [facility] CLIA [id number] [address] [place] [address] [place] Creatinine and Glomerular filtration rate.predicted panel (S/P/Bld) 64 mL/min/1.73m??? Normal >=60 [facility] Comment on above: Order Comment: Jose Cruz johnson Type: BLOOD SPECIMEN [facility]: [facility] Address: [address] [place] [address] Result Comment: Mary Kay mated Glomerular Filtration Rate (eGFR) is calculated using the 2020 CKD-EPI creatinine equation. This equation utilizes serum creatinine, sex, and age as parameters. The creatinine assay has traceable calibration to isotope dilution-mass spectrometry. Refer to KDIGO guidelines for clinical interpretation. In patients with unstable renal function, e.g. those with acute kidney injury, the eGFR may not accurately reflect actual GFR. Performed By: #### 2 4323-8, 3040-3, 89721-9, 61338-9, [id number] #### [facility] CLIA [id number] [address] [place] [address] [place] Glucose [Mass/Vol] 148 mg/dL High 74-99 [facility] Comment on above: Order Comment: Jose Cruz johnson Type: BLOOD SPECIMEN [facility] Address: [address] [place] [address] Result Comment: The [place] Diabetes Association (ADA) provides guidance for cutoff values for fasting glucose and random glucose. The ADA defines fasting as no caloric intake for at least 8 hours. Fasting plasma glucose results between 100 to 125 mg/dL indicate increased risk for diabetes (prediabetes). Fasting plasma glucose results greater than or equal to 126 mg/dL meet the criteria for diagnosis of diabetes. In the absence of unequivocal hyperglycemia, results should be confirmed by repeat testing. In a patient with classic symptoms of hyperglycemia or hyperglycemic crisis, random plasma glucose results greater than or equal to 200 mg/dL meet the criteria for diagnosis of diabetes. Reference: Standards of Medical Care in Diabetes 2016, [place] [employer]. Diabetes Care. 2016.39(Suppl 1). Performed By: #### 2 4323-8, 3040-3, 06746-1, 17242-5, [id number] #### [facility] CLIA [id number] [address] [place] [address] [place] Potassium [Moles/Vol] 4.8 mmol/L Normal 3.7-5.1 [facility] Comment on above: Order Comment: Speci men Type: BLOOD SPECIMEN Order[facility]: [facility] Address: [address] [place] [address] Performed By: #### 2 4323-8, 3040-3, 90728-2, 25875-6, [id number] #### [facility] CLIA [id number] [address] [place] [address] [place] Protein [Mass/Vol] 7.1 g/dL Normal 6.3-8.0 [facility] Comment on above: Order Comment: Speci men Type: BLOOD SPECIMEN Ordering Facility: [facility] Address: [address] [place] [id number] Performed By: #### 2 4323-8, 3040-3, 76781-4, 05091-3, [id number] #### [facility] CLIA [id number] [address] [place] Sodium [Moles/Vol] 140 mmol/L Normal 136-144 [facility] Comment on above: Order Comment: Speci men Type: BLOOD SPECIMEN Ordering Facility: [facility] Address: [address] [place] [address] Performed By: #### 2 4323-8, 3040-3, 00638-4, 93040-8, [id number] #### [facility] CLIA [id number] [address] [place] [address] [place] Urea nitrogen [Mass/Vol] 23 mg/dL Normal 9-24 [facility] Comment on above: Order Comment: Speci men Type: BLOOD SPECIMEN Ordering Facility: [facility] Address: [address] [place] [address] Performed By: #### 2 4323-8, 3040-3, 69862-3, 14547-8, [id number] #### [facility] CLIA [id number] [address] [place] Magnesium SerPl-mCncon 10-06 Magnesium [Mass/Vol] 1.7 mg/dL Normal 1.7-2.3 [facility] Comment on above: Order Comment: Speci men Type: BLOOD SPECIMEN Ordering Facility: [facility] Address: [address] [place] [address] Performed By: #### 2 4323-8, 3040-3, 39466-9, 42463-9, [id number] #### [facility] CLIA [id number] [address] Phosphate SerPl-mCncon 10-06 Phosphate [Mass/Vol] 3.4 mg/dL Normal 2.7-4.8 [facility] Comment on above: Order Comment: Speci men Type: BLOOD SPECIMEN Ordering Facility: [facility] Address: [address] [place] [address] Performed By: #### 2 4323-8, 3040-3, 77939-8, 76335-7, [id number] #### [facility] CLIA [id number] [address] [place] CBC panel Auto (Bld)on 10-05 Erythrocyte distribution width (RBC) [Ratio] 12.9 % Normal 11.5-15.0 [facility] Comment on above: Order Comment: Speci men Type: BLOOD SPECIMEN Ordering Facility: [facility] Address: [address] [place], [place] [address] Performed By: #### 2 4323-8, 3040-3, 00875-4, 98923-2, [id number] #### [facility] CLIA [id number] [address] [place] Hematocrit (Bld) [Volume fraction] 29.6 % Low 39.0-51.0 [facility] Comment on above: Order Comment: Speci men Type: BLOOD SPECIMEN Ordering Facility: [facility] Address: [address] [place] [address] Performed By: #### 2 4323-8, 3040-3, 85700-8, 50515-7, [id number] #### [facility] CLIA [id number] [address] [place] [address] [place] [place] Hemoglobin (Bld) [Mass/Vol] 9.8 g/dL Low 13.0-17.0 [facility] Comment on above: Order Comment: Speci men Type: BLOOD SPECIMEN Ordering Facility: [facility] Address: [address] [place] [address] Performed By: #### 2 4323-8, 3040-3, 77800-0, 22725-3, [id number] #### [facility] CLIA [id number] [address] [place] MCH (RBC) [Entitic mass] 30.2 pg Normal 26.0-34.0 [facility] Comment on above: Order Comment: Speci men Type: BLOOD SPECIMEN Ordering Facility: [facility] Address: [address] [place] [address] Performed By: #### 2 4323-8, 3040-3, 08556-6, , [id number] #### [facility] CLIA [id number] [address] STATES OF [facility] MCHC (RBC) [Mass/Vol] 33.1 g/dL Normal 30.5-36.0 [facility] Comment on above: Order Comment: Speci men Type: BLOOD SPECIMEN Ordering Facility: [facility] Address: [address] [place] [address] Performed By: #### 2 4323-8, 3040-3, 42443-7, 63475-4, [id number] #### [facility] CLIA [id number] [address] MCV (RBC) [Entitic vol] 91.1 fL Normal 80.0-100.0 [facility] Comment on above: Order Comment: Speci men Type: BLOOD SPECIMEN Ordering Facility: [facility] Address: [address] [place] [address] Performed By: #### 2 4323-8, 3040-3, 16859-7, 42309-7, [id number] #### [facility] CLIA [id number] [address] [place] [address] [place] Nucleated RBC (Bld) [#/Vol] 10*3/uL Normal <0.01 [facility] Comment on above: Order Comment: Speci men Type: BLOOD SPECIMEN Ordering Facility: [facility] Address: [address] [place] [address] Performed By: #### 2 4323-8, 3040-3, 32436-8, 47840-4, [id number] #### [facility] CLIA [id number] [address] [place] [address] [place] Platelet mean volume (Bld) [Entitic vol] 9.9 fL Normal 9.0-12.7 [facility] Comment on above: Order Comment: Speci men Type: BLOOD SPECIMEN Ordering Facility: [facility] Address: [address] [place] [address] Performed By: #### 2 4323-8, 3040-3, 96566-5, 94355-1, [id number] #### [facility] CLIA [id number] [address] [place] [address] [place] Platelets (Bld) [#/Vol] 194 10*3/uL Normal 150-400 [facility] Comment on above: Order Comment: Speci men Type: BLOOD SPECIMEN Ordering Facility: [facility] Address: [address] [place] [address] Performed By: #### 2 4323-8, 3040-3, 63775-2, 44318-9, [id number] #### [facility] CLIA [id number] [address] [place] [address] [place] RBC (Bld) [#/Vol] 3.25 10*6/uL Low 4.20-6.00 [facility] Comment on above: Order Comment: Speci men Type: BLOOD SPECIMEN Ordering Facility: [facility] Address: [address] [place] [address] Performed By: #### 2 4323-8, 3040-3, 93310-2, 47295-7, [id number] #### [facility] CLIA [id number] [address] [place] [address] [place] WBC (Bld) [#/Vol] 6.87 10*3/uL Normal 3.70-11.00 [facility] Comment on above: Order Comment: Speci men Type: BLOOD SPECIMEN Ordering Facility: [facility] Address: [facility] [place] [address] Performed By: #### 2 4323-8, 3040-3, 19763-7, 73247-1, [id number] #### [facility] CLIA [id number] [address] [place] [address] [facility] [place] CONSULT PROGon 10-05-2024 CONSULT PROG HNO ID: [id number] Author: GEM WALDEN MD Service: Nephrology Author Type: Physician Type: Consult Progress Note Filed: 10/05/2024 07:23 Note Text: NEPHROLOGY CONSULT PROGRESS NOTE Subjective INTERVAL HISTORY: The patient was seen and examined . No acute event overnight. PERTINENT ROS: GENERAL: No fever/chills. RESPIRATORY: Negative for cough, wheezing or shortness of breath. CARDIOVASCULAR: Negative for chest pain or palpitations. GI: Negative for nausea, vomiting, Diarrhea, abdominal pain. : Negative for dysuria and hematuria MEDICATIONS: Current Facility-Administered Medications Medication Dose Route Frequency dextrose 40 % 15 g 15 g ORAL PRN Or glucagon 1 mg injection 1 mg INTRAMUSCULAR PRN Or dextrose 10% iv bolus 12.5 g INTRAVENOUS PRN gabapentin 600 mg tab(s) (NEURONTIN) 600 mg ORAL QID rosuvastatin 20 mg tab(s) (CRESTOR) 20 mg ORAL DAILY tamsulosin 0.4 mg cap(s) (FLOMAX) 0.4 mg ORAL DAILY metoprolol tartrate (short acting) 12.5 mg tab(s) (LOPRESSOR) 12.5 mg ORAL q 12 H clopidogrel 75 mg tab(s) (PLAVIX) 75 mg ORAL DAILY aspirin 81 mg chewable tab(s) 81 mg ORAL DAILY escitalopram oxalate 10 mg tab(s) (LEXAPRO) 10 mg ORAL DAILY NaCl 0.9% iv flush bag 20 mL INTRAVENOUS PRN insulin glargine 22 Units pen (long acting) 22 Units SUBCUTANEOUS AT BEDTIME sodium zirconium cyclosilicate 10 g oral packet (LOKELMA) 10 g ORAL TID insulin lispro injection (rapid acting) (ADMElog) SUBCUTANEOUS w MEALS AND HS NaCl 0.9% iv infusion 75 mL/hr INTRAVENOUS CONTINUOUS sodium bicarbonate 650 mg tab(s) 650 mg ORAL TID fludrocortisone 0.1 mg tab(s) (FLORINEF) 0.1 mg ORAL ONCE furosemide 20 mg injection (LASIX) 20 mg INTRAVENOUS ONCE Objective PHYSICAL EXAM: BP 140/65 Pulse 61 Temp 36.9 ?C (98.4 ?F) (Oral) Resp 20 Ht 114.3 cm (3' 9) Wt 73.5 kg (162 lb 0.6 oz) SpO2 94% BMI 56.26 kg/m? Intake/Output Summary (Last 24 hours) at 10/05/2024 0721 Last data filed at 10/05/2024 0408 Gross per 24 hour Intake 2014 ml Output 1550 ml Net 464 ml GENERAL: NAD HEENT : NCAT, MMM and pink EYES: Conjunctiva -Pallor, Non icterus sclera. NECK: supple, No JVD, LUNGS: CTA without rales or wheeze, diminished breath sounds, CV: no murmurs, clicks, or gallops. ABDOMEN: soft, NT, BS normal EDEMA : no Lower extremity/ no Dependent edema DATA: Diagnostic tests reviewed for today's visit: Most recent labs and imaging results. Recent Labs 10/05/24 0403 10/04/24 1513 10/04/24 1044 10/04/24 0433 10/04/24 0432 10/03/24 2000 10/03/24 1640 WBC 6.87 -- -- 10.66 -- -- 8.75 HB 9.8* -- -- 10.6* -- -- 11.3* HCT 29.6* -- -- 33.1* -- -- 33.9* PLT 194 -- -- 233 -- -- 224 NA 139 136 134* -- 138 < > 133* K 5.5* 5.9* 5.7* -- 6.2* < > 7.2* CHLOR 107 104 103 -- 105 < > 103 CO2 24 17* 21* -- 22 < > 20* BUN 27* 31* 31* -- 30* < > 25* CREAT 1.31* 1.50* 1.69* -- 1.68* < > 1.18 GLUC 100* 176* 119* -- 110* < > 182* CA 8.7 9.1 9.0 -- 9.3 < > 9.9 MG 1.8 -- -- -- 1.5* -- -- P 3.9 -- 4.0 -- 4.0 -- -- < > = values in this interval not displayed. Recent Labs 10/05/24 0403 10/04/24 1044 10/03/24 1640 10/02/24 1318 TPROT 6.4 -- 7.7 7.6 ALB 3.7* 4.0 4.6 4.6 ALT 8* -- 12 12 AST 13* -- 15 13* ALKPHOS 49 -- 57 58 TBILI 0.3 -- 0.4 0.3 Assessment/Plan 1. Hyperkalemia likely in the setting of being on lisinopril and Aldactone. As a risk factor including patient with diabetes and hypertension. Also patient is on metoprolol 2. GA on chronic kidney disease stage III 3. Diarrhea 4. Type 2 diabetes 5. Hypertension 6. Hypomagnesemia Plan of management Renal function improving serum creatinine increased to 1.31 mg/dL. Patient with a persistent hyperkalemia although serum potassium level slowly improving. Potassium decreased to 5.5. --Low potassium diet --Lokelma 10 g p.o. x 1 dose today --Florinef 0.1 mg p.o. x 1 dose and Lasix 20 mg IV x 1 dose --Sodium bicarb 650 mg p.o. 3 times daily -- DC Normal saline --Magnesium supplement --Continuous telemetry monitoring as patient has risk of developing cardiac arrhythmia from hypomagnesemia and hypokalemia. --Strict intake and output measurement --Urinary studies --Kidney ultrasound no hydronephrosis and bladder partially distended. Bilateral symmetrical kidney with normal echogenicity and parenchymal thickness. -- Check renal function panel at 12 noon [facility] Comprehensive metabolic 2000 panelon 10-05-2024 Albumin [Mass/Vol] 3.7 g/dL Low 3.9-4.9 [facility] Comment on above: Order Comment: Speci men Type: BLOOD SPECIMEN Ordering Facility: [facility] Address: [address] [place] [address] Performed By: #### 2 4323-8, 2776-09, #### [facility] CLIA [id number] [address] [place] [address] [place] ALP [Catalytic activity/Vol] 49 U/L Normal 38-113 [facility] Comment on above: Order Comment: Speci men Type: BLOOD SPECIMEN Ordering Facility: [facility] Address: [address] [place] [address] Performed By: #### 2 4323-8, 2776-09, #### [facility] CLIA [id number] [address] [place] [address] [place] ALT [Catalytic activity/Vol] 8 U/L Low 10-54 [facility] Comment on above: Order Comment: Speci men Type: BLOOD SPECIMEN Ordering Facility: [facility] Address: [address] [place] [address] Performed By: #### 2 4323-8, 2776-09, #### [facility] CLIA [id number] [address] [place] [address] [place] Anion gap [Moles/Vol] 8 mmol/L Normal 8-15 [facility] Comment on above: Order Comment: Speci men Type: BLOOD SPECIMEN Ordering Facility: [facility] Address: [address] [place] [address] Performed By: #### 2 4323-8, 2776-09, #### [facility] CLIA [id number] [address] [place] [address] [place] AST [Catalytic activity/Vol] 13 U/L Low 14-40 [facility] Comment on above: Order Comment: Speci men Type: BLOOD SPECIMEN Ordering Facility: [facility] Address: [address] [place] [address] Performed By: #### 2 4323-8, 2776-09, #### [facility] CLIA [id number] [address] [place] [address] [place] Bilirubin [Mass/Vol] 0.3 mg/dL Normal 0.2-1.3 [facility] Comment on above: Order Comment: Speci men Type: BLOOD SPECIMEN Ordering Facility: [facility] Address: [address] [place] [address] Performed By: #### 2 4323-8, 2771, #### [facility] CLIA [id number] [address] [place] [address] [place] Calcium [Mass/Vol] 8.7 mg/dL Normal 8.5-10.2 [facility] Comment on above: Order Comment: Speci men Type: BLOOD SPECIMEN Ordering Facility: [facility] Address: [address] [place] [address] Performed By: #### 2 4323-8, 27703-20, #### [facility] CLIA [id number] [address] [place] [address] [place] Chloride [Moles/Vol] 107 mmol/L Normal 98-107 [facility] Comment on above: Order Comment: Speci men Type: BLOOD SPECIMEN Ordering Facility: [facility] Address: [address] [place] [address] Performed By: #### 2 4323-8, 2776-09, #### [facility] CLIA [id number] [address] [place] [address] [place] CO2 [Moles/Vol] 24 mmol/L Normal 22-30 [facility] Comment on above: Order Comment: Speci men Type: BLOOD SPECIMEN Ordering Facility: [facility] Address: [address] [place] [address] Performed By: #### 2 4323-8, 27703-20, #### [facility] CLIA [id number] [address] [place] [address] [place] Creatinine [Mass/Vol] 1.31 mg/dL High 0.73-1.22 [facility] Comment on above: Order Comment: Speci men Type: BLOOD SPECIMEN Ordering Facility: [facility] Address: [address] [place] [address] Performed By: #### 2 4323-8, 2777-1, 45705-7 #### [facility] CLIA [id number] [address] OF [facility] Creatinine and Glomerular filtration rate.predicted panel (S/P/Bld) 58 mL/min/1.73m??? Low >=60 [facility] Comment on above: Order Comment: Jose Cruz johnson Type: BLOOD SPECIMEN Ordering Facility: [facility] Address: [address] [place] [address] Result Comment: Mary Kay mated Glomerular Filtration Rate (eGFR) is calculated using the 2020 CKD-EPI creatinine equation. This equation utilizes serum creatinine, sex, and age as parameters. The creatinine assay has traceable calibration to isotope dilution-mass spectrometry. Refer to KDIGO guidelines for clinical interpretation. In patients with unstable renal function, e.g. those with acute kidney injury, the eGFR may not accurately reflect actual GFR. Performed By: #### 2 4323-8, 2777-, 11205-9 #### [facility] CLIA [id number] [address] [place] [address] [place] Glucose [Mass/Vol] 100 mg/dL High 74-99 [facility] Comment on above: Order Comment: Jose Cruz johnson Type: BLOOD SPECIMEN Ordering Facility: [facility] Address: [address] [place] [address] Result Comment: The [place] Diabetes Association (ADA) provides guidance for cutoff values for fasting glucose and random glucose. The ADA defines fasting as no caloric intake for at least 8 hours. Fasting plasma glucose results between 100 to 125 mg/dL indicate increased risk for diabetes (prediabetes). Fasting plasma glucose results greater than or equal to 126 mg/dL meet the criteria for diagnosis of diabetes. In the absence of unequivocal hyperglycemia, results should be confirmed by repeat testing. In a patient with classic symptoms of hyperglycemia or hyperglycemic crisis, random plasma glucose results greater than or equal to 200 mg/dL meet the criteria for diagnosis of diabetes. Reference: Standards of Medical Care in Diabetes 2016, [place] [employer] Association. Diabetes Care. 2016.39(Suppl 1). Performed By: #### 2 4323-8, 2777-1, 39801-0 #### [facility] CLIA [id number] [address] [place] [address] [place] Potassium [Moles/Vol] 5.5 mmol/L High 3.7-5.1 [facility] Comment on above: Order Comment: Speci men Type: BLOOD SPECIMEN Ordering Facility: [facility] Address: [address] [place] [address] Performed By: #### 2 4323-8, 2771, #### [facility] CLIA [id number] [address] [place] [address] [place] Protein [Mass/Vol] 6.4 g/dL Normal 6.3-8.0 [facility] Comment on above: Order Comment: Speci men Type: BLOOD SPECIMEN Ordering Facility: [facility] Address: [address] [place] [address] Performed By: #### 2 4323-8, 27703-20, #### [facility] CLIA [id number] [address] [place] [address] [place] Sodium [Moles/Vol] 139 mmol/L Normal 136-144 [facility] Comment on above: Order Comment: Speci men Type: BLOOD SPECIMEN Ordering Facility: [facility] Address: [address] [place] [address] Performed By: #### 2 4323-8, 2776-09, #### [facility] CLIA [id number] [address] [place] [address] [place] Urea nitrogen [Mass/Vol] 27 mg/dL High 9-24 [facility] Comment on above: Order Comment: Speci men Type: BLOOD SPECIMEN Ordering Facility: [facility] Address: [address] [place], [place] [address] Performed By: #### 2 4323-8, 2776-09, #### [facility] CLIA [id number] [address] [place] [address] [place] Magnesium SerPl-mCncon 10-05 Magnesium [Mass/Vol] 1.8 mg/dL Normal 1.7-2.3 [facility] Comment on above: Order Comment: Speci men Type: BLOOD SPECIMEN Ordering Facility: [facility] Address: [address] [place] [id number] Performed By: #### 2 4323-8, 2777-1, #### [facility] CLIA [id number] [address] [place] [address] [place] Phosphate SerPl-mCncon 10-05 Phosphate [Mass/Vol] 3.9 mg/dL Normal 2.7-4.8 [facility] Comment on above: Order Comment: Speci men Type: BLOOD SPECIMEN Ordering Facility: [facility] Address: [address] [place] [address] Performed By: #### 2 4323-8, 2777-1, #### [facility] CLIA [id number] [address] [place] Renal function 2000 panelon 10-05-2024 Albumin [Mass/Vol] 3.9 g/dL Normal 3.9-4.9 [facility] Comment on above: Order Comment: Speci men Type: BLOOD SPECIMEN Ordering Facility: [facility] Address: [address] [place] [address] Performed By: #### 2 4323-8, 3040-3, 97785-8, 17819-8, [id number] #### [facility] CLIA [id number] [address] [place] [address] [place] Anion gap [Moles/Vol] 12 mmol/L Normal 8-15 [facility] Comment on above: Order Comment: Speci men Type: BLOOD SPECIMEN Ordering Facility: [facility] Address: [address] [place], [place] [address] Performed By: #### 2 4323-8, 3040-3, 92887-5, 49720-5, [id number] #### [facility] CLIA [id number] [address] [place] [address] [place] Calcium [Mass/Vol] 8.9 mg/dL Normal 8.5-10.2 [facility] Comment on above: Order Comment: Speci men Type: BLOOD SPECIMEN Ordering Facility: [facility] Address: [address] [place] [address] Performed By: #### 2 4323-8, 3040-3, 54472-9, 56622-3, [id number] #### [facility] CLIA [id number] [address] [place] [address] [place] Chloride [Moles/Vol] 101 mmol/L Normal 98-107 [facility] Comment on above: Order Comment: Speci men Type: BLOOD SPECIMEN Ordering Facility: [facility] Address: [address] [place] [address] Performed By: #### 2 4323-8, 3040-3, 17169-4, 08659-6, [id number] #### [facility] CLIA [id number] [address] [place] [address] [place] CO2 [Moles/Vol] 22 mmol/L Normal 22-30 [facility] Comment on above: Order Comment: Speci men Type: BLOOD SPECIMEN Ordering Facility: [facility] Address: [address] [place] [address] Performed By: #### 2 4323-8, 3040-3, 38436-5, 23534-4, [id number] #### [facility] CLIA [id number] [address] [place] [address] [place] Creatinine [Mass/Vol] 1.12 mg/dL Normal 0.73-1.22 [facility] Comment on above: Order Comment: Speci men Type: BLOOD SPECIMEN Ordering Facility: [facility] Address: [address] [place] [address] Performed By: #### 2 4323-8, 3040-3, 17812-0, 10342-3, [id number] #### [facility] CLIA [id number] [address] [place] [address] [place] [facility] [place] Creatinine and Glomerular filtration rate.predicted panel (S/P/Bld) 70 mL/min/1.73m??? Normal >=60 [facility] Comment on above: Order Comment: Speci men Type: BLOOD SPECIMEN Ordering Facility: [facility] Address: [address] [place] [address] Result Comment: Mary Kay mated Glomerular Filtration Rate (eGFR) is calculated using the 2020 CKD-EPI creatinine equation. This equation utilizes serum creatinine, sex, and age as parameters. The creatinine assay has traceable calibration to isotope dilution-mass spectrometry. Refer to KDIGO guidelines for clinical interpretation. In patients with unstable renal function, e.g. those with acute kidney injury, the eGFR may not accurately reflect actual GFR. Performed By: #### 2 4323-8, 3040-3, 50576-5, 65812-6, [id number] #### [facility] CLIA [id number] [address] [place] [address] [place] Glucose [Mass/Vol] 219 mg/dL High 74-99 [facility] Comment on above: Order Comment: Jose Cruz johnson Type: BLOOD SPECIMEN Ordering Facility: [facility] Address: [address] [place] [address] Result Comment: The [place] Diabetes Association (ADA) provides guidance for cutoff values for fasting glucose and random glucose. The ADA defines fasting as no caloric intake for at least 8 hours. Fasting plasma glucose results between 100 to 125 mg/dL indicate increased risk for diabetes (prediabetes). Fasting plasma glucose results greater than or equal to 126 mg/dL meet the criteria for diagnosis of diabetes. In the absence of unequivocal hyperglycemia, results should be confirmed by repeat testing. In a patient with classic symptoms of hyperglycemia or hyperglycemic crisis, random plasma glucose results greater than or equal to 200 mg/dL meet the criteria for diagnosis of diabetes. Reference: Standards of Medical Care in Diabetes 2016, [place] [employer]. Diabetes Care. 2016.39(Suppl 1). Performed By: #### 2 4323-8, 3040-3, 79058-0, 76076-6, [id number] #### [facility] CLIA [id number] [address] [place] [address] [place] Phosphate [Mass/Vol] 3.4 mg/dL Normal 2.7-4.8 [facility] Comment on above: Order Comment: Jose Cruz johnson Type: BLOOD SPECIMEN Ordering Facility: [facility] Address: [address] [place], [place] [address] Performed By: #### 2 4323-8, 3040-3, 79539-1, 29402-4, [id number] #### [facility] CLIA [id number] [address] [place] [address] [place] Potassium [Moles/Vol] 4.8 mmol/L Normal 3.7-5.1 [facility] Comment on above: Order Comment: Speci men Type: BLOOD SPECIMEN Ordering Facility: [facility] Address: [address] [place] [address] Performed By: #### 2 4323-8, 3040-3, 78727-3, 33327-3, [id number] #### [facility] CLIA [id number] [address] [place] [address] [place] Sodium [Moles/Vol] 135 mmol/L Low 136-144 [facility] Comment on above: Order Comment: Speci men Type: BLOOD SPECIMEN Ordering Facility: [facility] Address: [address] [place] [address] Performed By: #### 2 4323-8, 3040-3, 41096-3, 34134-2, [id number] #### [facility] CLIA [id number] [address] [place] [address] [place] Urea nitrogen [Mass/Vol] 24 mg/dL Normal 9-24 [facility] Comment on above: Order Comment: Speci men Type: BLOOD SPECIMEN Ordering Facility: [facility] Address: [address] [place] [address] Performed By: #### 2 4323-8, 3040-3, 05613-2, 93744-1, [id number] #### [facility] CLIA [id number] [address] [place] [address] [place] ALBUMIN/CREATININE RATIO, UR INEon 10-04-2024 Albumin DL <= 20 mg/L (U) [Mass/Vol] mg/dL Normal [facility] Comment on above: Order Comment: Speci men Type: BLOOD SPECIMEN Ordering Facility: [facility] Address: [address] [place] [address] Performed By: #### 2 4323-8, 3040-3, 49373-8, 79380-6, [id number] #### [facility] CLIA [id number] [address] [place] [address] [place] Albumin/Creatinine (U) [Mass ratio] <7 Normal <30 [facility] Comment on above: Order Comment: Speci men Type: BLOOD SPECIMEN Ordering Facility: [facility] Address: [address] [place] [address] Result Comment: Adul t Male and Female Nephrotic Criteria: <30 mg/g is considered normal to mildly increased 30-300 mg/g is considered moderately increased >300 mg/g is considered severely increased KDIGO. (2013). KDIGO 2012 Clinical Practice Guideline for the Evaluation and Management of Chronic Kidney Disease. Official Journal of the International Society of Nephrology, 3(1), 1-150. Performed By: #### 2 4323-8, 3040-3, 96498-9, 05386-1, [id number] #### [facility] CLIA [id number] [address] [place] [id number] [place] [address] ALLIED HEALTHon 10-04-2024 [facility] HNO ID: [id number] Author: DERECK HYLTON RDMS Service: ? Author Type: Technologist Type: Allied Health Filed: 10/04/2024 11:02 Note Text: Radiology Service Progress Note PATIENT NAME: Shilo Hathaway DATE OF SERVICE: October 04, 2024 TIME: 11:01 AM PATIENT IDENTITY VERIFICATION COMPLETED USING TWO (2) IDENTIFIERS: Name and Date of confirmed by patient verbally and Name and Date of confirmed by identification band. FALL SCREENING: Has the patient had 2 falls in the last year or 1 fall with injury or currently using an Ambulatory Assistive Device (Walker, Cane, Wheelchair, Crutches, etc.)? No PATIENT GENDER DATA: Assigned male at PATIENT RELEVANT IMPLANT DATA REVIEWED: Not Applicable PATIENT PRESENTS WITH AN IMPLANTABLE OR ATTACHED .NET ARCHITECT: N/A RADIOLOGY DEPARTMENT: Ultrasound PERIPHERAL IV DATA: Not applicable SIGNED BY: Dereck Hylton RDMS October 04, 2024 11:01 AM Normal [facility] Albumin SerPl-mCncon 025 Albumin [Mass/Vol] 4.0 g/dL Normal 3.9-4.9 [facility] Comment on above: Order Comment: Speci men Type: BLOOD SPECIMEN Ordering Facility: [facility] Address: [address] [place] [address] Performed By: #### 2 4323-8, 3040-3, 42012-8, 02180-0, [id number] #### [facility] CLIA [id number] [address] [place] [address] [place] Basic metabolic 2000 panelon 10-04-2024 Anion gap [Moles/Vol] 15 mmol/L Normal 8-15 [facility] Comment on above: Order Comment: Speci men Type: BLOOD SPECIMEN Ordering Facility: [facility] Address: [address] [place] [address] Performed By: #### 2 4321-2 #### [facility] CLIA [id number] [address] [place] [address] [place] Calcium [Mass/Vol] 9.1 mg/dL Normal 8.5-10.2 [facility] Comment on above: Order Comment: Speci men Type: BLOOD SPECIMEN Ordering Facility: [facility] Address: [address] [place] [address] Performed By: #### 2 4321-2 #### [facility] CLIA [id number] [address] [place] Chloride [Moles/Vol] 104 mmol/L Normal 98-107 [facility] Comment on above: Order Comment: Speci men Type: BLOOD SPECIMEN Ordering Facility: [facility] Address: [address] [place] [address] Performed By: #### 2 4321-2 #### [facility] CLIA [id number] [address] [place] CO2 [Moles/Vol] 17 mmol/L Low 22-30 [facility] Comment on above: Order Comment: Speci men Type: BLOOD SPECIMEN Ordering Facility: [facility] Address: [address] [place] [address] Performed By: #### 2 4321-2 #### [facility] CLIA [id number] [address] [place] [address] [place] Creatinine [Mass/Vol] 1.50 mg/dL High 0.73-1.22 [facility] Comment on above: Order Comment: Speci men Type: BLOOD SPECIMEN Ordering Facility: [facility] Address: [address] [place] [address] Performed By: #### 2 4321-2 #### [facility] CLIA [id number] [address] [place] [address] [place] Creatinine and Glomerular filtration rate.predicted panel (S/P/Bld) 49 mL/min/1.73m??? Low >=60 [facility] Comment on above: Order Comment: Jose Cruz johnson Type: BLOOD SPECIMEN Ordering Facility: [facility] Address: [address] [place] [address] Result Comment: Mary Kay mated Glomerular Filtration Rate (eGFR) is calculated using the 2020 CKD-EPI creatinine equation. This equation utilizes serum creatinine, sex, and age as parameters. The creatinine assay has traceable calibration to isotope dilution-mass spectrometry. Refer to KDIGO guidelines for clinical interpretation. In patients with unstable renal function, e.g. those with acute kidney injury, the eGFR may not accurately reflect actual GFR. Performed By: #### 2 4321-2 #### [facility] CLIA [id number] [address] [place] [address] [place] Glucose [Mass/Vol] 176 mg/dL High 74-99 [facility] Comment on above: Order Comment: Jose Cruz johnson Type: BLOOD SPECIMEN Ordering Facility: [facility] Address: [address] [place] [address] Result Comment: The [place] Diabetes [employer] (ADA) provides guidance for cutoff values for fasting glucose and random glucose. The ADA defines fasting as no caloric intake for at least 8 hours. Fasting plasma glucose results between 100 to 125 mg/dL indicate increased risk for diabetes (prediabetes). Fasting plasma glucose results greater than or equal to 126 mg/dL meet the criteria for diagnosis of diabetes. In the absence of unequivocal hyperglycemia, results should be confirmed by repeat testing. In a patient with classic symptoms of hyperglycemia or hyperglycemic crisis, random plasma glucose results greater than or equal to 200 mg/dL meet the criteria for diagnosis of diabetes. Reference: Standards of Medical Care in Diabetes 2016, [place] [employer]. Diabetes Care. 2016.39(Suppl 1). Performed By: #### 2 4321-2 #### [facility] CLIA [id number] [address] [place] [address] [place] Potassium [Moles/Vol] 5.9 mmol/L High 3.7-5.1 [facility] Comment on above: Order Comment: Speci men Type: BLOOD SPECIMEN Ordering Facility: [facility] Address: [address] [place] [address] Performed By: #### 2 4321-2 #### [facility] CLIA [id number] [address] [place] [address] [place] Sodium [Moles/Vol] 136 mmol/L Normal 136-144 [facility] Comment on above: Order Comment: Speci men Type: BLOOD SPECIMEN Ordering Facility: [facility] Address: [address] [place] [address] Performed By: #### 2 4321-2 #### [facility] CLIA [id number] [address] [place] [address] [place] Urea nitrogen [Mass/Vol] 31 mg/dL High 9-24 [facility] Comment on above: Order Comment: Speci men Type: BLOOD SPECIMEN Ordering Facility: [facility] Address: [address] [place] [address] Performed By: #### 2 4321-2 #### [facility] CLIA [id number] [address] [place] [address] [place] Anion gap [Moles/Vol] 10 mmol/L Normal 8-15 [facility] Comment on above: Order Comment: Speci men Type: BLOOD SPECIMEN Ordering Facility: [facility] Address: [address] [place] [address] Performed By: #### 2 4323-8, 3040-3, 76510-4, 74963-3, [id number] #### [facility] CLIA [id number] [address] [place] [address] [place] Calcium [Mass/Vol] 9.0 mg/dL Normal 8.5-10.2 [facility] Comment on above: Order Comment: Speci men Type: BLOOD SPECIMEN Ordering Facility: [facility] Address: [address] [place] [address] Performed By: #### 2 4323-8, 3040-3, 35291-3, 53695-1, [id number] #### [facility] CLIA [id number] [address] [place] [address] [place] Chloride [Moles/Vol] 103 mmol/L Normal 98-107 [facility] Comment on above: Order Comment: Jose Cruz johnson Type: BLOOD SPECIMEN Ordering Facility: [facility] Address: [address] [place] [address] Performed By: #### 2 4323-8, 3040-3, 77016-6, 58490-0, [id number] #### [facility] CLIA [id number] [address] [place] CO2 [Moles/Vol] 21 mmol/L Low 22-30 [facility] Comment on above: Order Comment: Jose Cruz johnson Type: BLOOD SPECIMEN Ordering Facility: [facility] Address: [address] [place] [address] Performed By: #### 2 4323-8, 3040-3, 48168-8, 08447-2, [id number] #### [facility] CLIA [id number] [address] [place] [address] [place] Creatinine [Mass/Vol] 1.69 mg/dL High 0.73-1.22 [facility] Comment on above: Order Comment: Jose Cruz johnson Type: BLOOD SPECIMEN Ordering Facility: [facility] Address: [address] [place] [address] Performed By: #### 2 4323-8, 3040-3, 03717-1, 46686-8, [id number] #### [facility] CLIA [id number] [address] Creatinine and Glomerular filtration rate.predicted panel (S/P/Bld) 43 mL/min/1.73m??? Low >=60 [facility] Comment on above: Order Comment: Jose Cruz johnson Type: BLOOD SPECIMEN Ordering Facility: [facility] Address: [address] [place] [address] Result Comment: Mary Kay mated Glomerular Filtration Rate (eGFR) is calculated using the 2020 CKD-EPI creatinine equation. This equation utilizes serum creatinine, sex, and age as parameters. The creatinine assay has traceable calibration to isotope dilution-mass spectrometry. Refer to KDIGO guidelines for clinical interpretation. In patients with unstable renal function, e.g. those with acute kidney injury, the eGFR may not accurately reflect actual GFR. Performed By: #### 2 4323-8, 3040-3, 45915-9, 72656-9, [id number] #### [facility] CLIA [id number] [address] [place] [address] [place] Glucose [Mass/Vol] 119 mg/dL High 74-99 [facility] Comment on above: Order Comment: Jose Cruz johnson Type: BLOOD SPECIMEN Ordering Facility: [facility] Address: [address] [place] [address] Result Comment: The [place] Diabetes Association (ADA) provides guidance for cutoff values for fasting glucose and random glucose. The ADA defines fasting as no caloric intake for at least 8 hours. Fasting plasma glucose results between 100 to 125 mg/dL indicate increased risk for diabetes (prediabetes). Fasting plasma glucose results greater than or equal to 126 mg/dL meet the criteria for diagnosis of diabetes. In the absence of unequivocal hyperglycemia, results should be confirmed by repeat testing. In a patient with classic symptoms of hyperglycemia or hyperglycemic crisis, random plasma glucose results greater than or equal to 200 mg/dL meet the criteria for diagnosis of diabetes. Reference: Standards of Medical Care in Diabetes 2016, [place] [employer]. Diabetes Care. 2016.39(Suppl 1). Performed By: #### 2 4323-8, 3040-3, 69469-4, 12325-2, [id number] #### [facility] CLIA [id number] [address] [place] [address] [place] Potassium [Moles/Vol] 5.7 mmol/L High 3.7-5.1 [facility] Comment on above: Order Comment: Jose Cruz johnson Type: BLOOD SPECIMEN Ordering Facility: [facility] Address: [address] [place] [address] Performed By: #### 2 4323-8, 3040-3, 66542-1, 92034-9, [id number] #### [facility] CLIA [id number] [address] [place] [address] [place] Sodium [Moles/Vol] 134 mmol/L Low 136-144 [facility] Comment on above: Order Comment: Jose Cruz johnson Type: BLOOD SPECIMEN Ordering Facility: [facility] Address: [address] [place] [address] Performed By: #### 2 4323-8, 3040-3, 81681-1, 30565-9, [id number] #### [facility] CLIA [id number] [address] [place] [address] [place] Urea nitrogen [Mass/Vol] 31 mg/dL High 9-24 [facility] Comment on above: Order Comment: Speci men Type: BLOOD SPECIMEN Ordering Facility: [facility] Address: [address] [place] [address] Performed By: #### 2 4323-8, 3040-3, 70046-7, 22184-0, [id number] #### [facility] CLIA [id number] [address] [place] [address] [place] Anion gap [Moles/Vol] 11 mmol/L Normal 8-15 [facility] Comment on above: Order Comment: Speci men Type: BLOOD SPECIMEN Ordering Facility: [facility] Address: [address] [place] [address] Performed By: #### 2 4323-8, 3040-3, 61676-2, 30883-2, [id number] #### [facility] CLIA [id number] [address] [place] [address] [place] Calcium [Mass/Vol] 9.3 mg/dL Normal 8.5-10.2 [facility] Comment on above: Order Comment: Speci men Type: BLOOD SPECIMEN Ordering Facility: [facility] Address: [address] [place] [address] Performed By: #### 2 4323-8, 3040-3, 85598-5, 65999-9, [id number] #### [facility] CLIA [id number] [address] [place] [address] [place] Chloride [Moles/Vol] 105 mmol/L Normal 98-107 [facility] Comment on above: Order Comment: Speci men Type: BLOOD SPECIMEN Ordering Facility: [facility] Address: [address] [place] [address] Performed By: #### 2 4323-8, 3040-3, 56502-2, 43278-9, [id number] #### [facility] CLIA [id number] [address] [place] [address] [place] CO2 [Moles/Vol] 22 mmol/L Normal 22-30 [facility] Comment on above: Order Comment: Specmarleny johnson Type: BLOOD SPECIMEN Ordering Facility: [facility] Address: [address] [place] [address] Performed By: #### 2 4323-8, 3040-3, 21945-9, , [id number] #### [facility] CLIA [id number] [address] [place] [address] [place] Creatinine [Mass/Vol] 1.68 mg/dL High 0.73-1.22 [facility] Comment on above: Order Comment: Speci men Type: BLOOD SPECIMEN Ordering Facility: [facility] Address: [address] [place] [address] Performed By: #### 2 4323-8, 3040-3, 11984-1, , [id number] #### [facility] CLIA [id number] [address] STATES OF [facility] Creatinine and Glomerular filtration rate.predicted panel (S/P/Bld) 43 mL/min/1.73m??? Low >=60 [facility] Comment on above: Order Comment: Jose Cruz johnson Type: BLOOD SPECIMEN Ordering Facility: [facility] Address: [address] [place] [address] Result Comment: Mary Kay mated Glomerular Filtration Rate (eGFR) is calculated using the 2020 CKD-EPI creatinine equation. This equation utilizes serum creatinine, sex, and age as parameters. The creatinine assay has traceable calibration to isotope dilution-mass spectrometry. Refer to KDIGO guidelines for clinical interpretation. In patients with unstable renal function, e.g. those with acute kidney injury, the eGFR may not accurately reflect actual GFR. Performed By: #### 2 4323-8, 3040-3, 70750-3, 18920-5, [id number] #### [facility] CLIA [id number] [address] [place] [address] [place] Glucose [Mass/Vol] 110 mg/dL High 74-99 [facility] Comment on above: Order Comment: Jose Cruz johnson Type: BLOOD SPECIMEN Ordering Facility: [facility] Address: [address] [place] [address] Result Comment: The [place] Diabetes Association (ADA) provides guidance for cutoff values for fasting glucose and random glucose. The ADA defines fasting as no caloric intake for at least 8 hours. Fasting plasma glucose results between 100 to 125 mg/dL indicate increased risk for diabetes (prediabetes). Fasting plasma glucose results greater than or equal to 126 mg/dL meet the criteria for diagnosis of diabetes. In the absence of unequivocal hyperglycemia, results should be confirmed by repeat testing. In a patient with classic symptoms of hyperglycemia or hyperglycemic crisis, random plasma glucose results greater than or equal to 200 mg/dL meet the criteria for diagnosis of diabetes. Reference: Standards of Medical Care in Diabetes 2016, [place] [employer]. Diabetes Care. 2016.39(Suppl 1). Performed By: #### 2 4323-8, 3040-3, 95285-4, 08523-1, [id number] #### [facility] CLIA [id number] [address] [place] [address] [place] Potassium [Moles/Vol] 6.2 mmol/L Critically high 3.7-5.1 [facility] Comment on above: Order Comment: Jose Cruz johnson Type: BLOOD SPECIMEN Ordering Facility: [facility] Address: [address] [place] [address] Performed By: #### 2 4323-8, 3040-3, 78198-4, 25149-5, [id number] #### [facility] CLIA [id number] [address] [place] [address] [place] Sodium [Moles/Vol] 138 mmol/L Normal 136-144 [facility] Comment on above: Order Comment: Jose Cruz johnson Type: BLOOD SPECIMEN Ordering Facility: [facility] Address: [address] [place] [address] Performed By: #### 2 4323-8, 3040-3, 73572-7, 97900-8, [id number] #### [facility] CLIA [id number] [address] [place] [address] [place] Urea nitrogen [Mass/Vol] 30 mg/dL High 9-24 [facility] Comment on above: Order Comment: Speci men Type: BLOOD SPECIMEN Ordering Facility: [facility] Address: [address] [place] [address] Performed By: #### 2 4323-8, 3040-3, 53066-3, 12248-3, [id number] #### [facility] CLIA [id number] [address] OF [facility] CBC panel Auto (Bld)on 10-04 Erythrocyte distribution width (RBC) [Ratio] 13.1 % Normal 11.5-15.0 [facility] Comment on above: Order Comment: Speci men Type: BLOOD SPECIMEN Ordering Facility: [facility] Address: [address] [place] [address] Performed By: #### 2 4323-8, 3040-3, 78288-7, 87885-6, [id number] #### [facility] CLIA [id number] [address] [place] Hematocrit (Bld) [Volume fraction] 33.1 % Low 39.0-51.0 [facility] Comment on above: Order Comment: Speci men Type: BLOOD SPECIMEN Ordering Facility: [facility] Address: [address] [place] [address] Performed By: #### 2 4323-8, 3040-3, 17827-8, 51205-4, [id number] #### [facility] CLIA [id number] [address] [place] Hemoglobin (Bld) [Mass/Vol] 10.6 g/dL Low 13.0-17.0 [facility] Comment on above: Order Comment: Speci men Type: BLOOD SPECIMEN Ordering Facility: [facility] Address: [address] [place] [address] Performed By: #### 2 4323-8, 3040-3, 76003-4, 51464-3, [id number] #### [facility] CLIA [id number] [address] [place] MCH (RBC) [Entitic mass] 29.6 pg Normal 26.0-34.0 [facility] Comment on above: Order Comment: Speci men Type: BLOOD SPECIMEN Ordering Facility: [facility] Address: [address] [place] [address] Performed By: #### 2 4323-8, 3040-3, 14974-1, 51038-7, [id number] #### [facility] CLIA [id number] [address] [place] MCHC (RBC) [Mass/Vol] 32.0 g/dL Normal 30.5-36.0 [facility] Comment on above: Order Comment: Speci men Type: BLOOD SPECIMEN Ordering Facility: [facility] Address: [address] [place] [address] Performed By: #### 2 4323-8, 3040-3, 33511-6, 32300-0, [id number] #### [facility] CLIA [id number] [address] [place] [address] [place] MCV (RBC) [Entitic vol] 92.5 fL Normal 80.0-100.0 [facility] Comment on above: Order Comment: Speci men Type: BLOOD SPECIMEN Ordering Facility: [facility] Address: [address] [place] [address] Performed By: #### 2 4323-8, 3040-3, 59434-4, , [id number] #### [facility] CLIA [id number] [address] [place] Nucleated RBC (Bld) [#/Vol] 10*3/uL Normal <0.01 [facility] Comment on above: Order Comment: Speci men Type: BLOOD SPECIMEN Ordering Facility: [facility] Address: [address] [place] [address] Performed By: #### 2 4323-8, 3040-3, 00570-2, 28654-4, [id number] #### [facility] CLIA [id number] [address] [place] Platelet mean volume (Bld) [Entitic vol] 10.7 fL Normal 9.0-12.7 [facility] Comment on above: Order Comment: Speci men Type: BLOOD SPECIMEN Ordering Facility: [facility] Address: [address] [place] [address] Performed By: #### 2 4323-8, 3040-3, 18138-8, 90853-2, [id number] #### [facility] CLIA [id number] [address] [place] [address] [place] Platelets (Bld) [#/Vol] 233 10*3/uL Normal 150-400 [facility] Comment on above: Order Comment: Speci men Type: BLOOD SPECIMEN Ordering Facility: [facility] Address: [address] [place] [address] Performed By: #### 2 4323-8, 3040-3, 72739-3, 19696-8, [id number] #### [facility] CLIA [id number] [address] [place] [address] [place] RBC (Bld) [#/Vol] 3.58 10*6/uL Low 4.20-6.00 [facility] Comment on above: Order Comment: Speci men Type: BLOOD SPECIMEN Ordering Facility: [facility] Address: [address] [place] [address] Performed By: #### 2 4323-8, 3040-3, 92247-5, 36369-3, [id number] #### [facility] CLIA [id number] [address] [place] [address] [place] WBC (Bld) [#/Vol] 10.66 10*3/uL Normal 3.70-11.00 [facility] Comment on above: Order Comment: Speci men Type: BLOOD SPECIMEN Ordering Facility: [facility] Address: [address] [place] [address] Performed By: #### 2 4323-8, 3040-3, 79653-0, 81524-0, [id number] #### [facility] CLIA [id number] [address] [place] CONSULTon 10-04-2024 CONSULT HNO ID: [id number] Author: GEM WALDEN MD Service: Nephrology Author Type: Physician Type: Consults Filed: 10/04/2024 10:18 Note Text: INPATIENT INITIAL NEPHROLOGY CONSULT SERVICE DATE: 10/04/2024 SERVICE TIME: 10:14 AM REASON FOR CONSULT: Acute kidney injury and hyperkalemia REQUESTING PHYSICIAN: KENNETH CAMPOS PRIMARY CARE PHYSICIAN: Paulina Severino MD CC: Abnormal labs mainly elevated potassium Subjective Mr. Hathaway is a 73 year old male with past medical history significant for: Coronary artery disease, hypertension, MR, bilateral AKA, type 2 diabetes, hyperlipidemia, PVD who presented to emergency room with hyperkalemia routine blood work revealed potassium of 6.1.-Advised to come to emergency room so far he received 3 dose of Lokelma. Outpatient labs revealed potassium 6.8 which increased to 7.2 in emergency room. Creatinine was 1.18 bicarb was 20. He received D10 insulin as well as Lokelma in emergency room. diet. Patient is down to 6.2 Patient's PROPERTY UNDER[employer] medication lisinopril 5 mg daily metoprolol 25 mg daily Aldactone 25 mg daily amlodipine 5 mg daily. Patient was on Xarelto. Denies taking any potassium tablet. Eats regular diet. PAST MEDICAL HISTORY Diagnosis Date Aortoiliac occlusive disease (HCC) Atherosclerotic heart disease of [place] coronary artery without angina pectoris Carotid artery occlusion Carotid artery stenosis Cerebrovascular accident (CVA) (HCC) Coronary arteriosclerosis [place] 1998 Depressive disorder Disc disorder of lumbar region Diverticulitis of colon Diverticulitis of colon Essential tremor Gastroesophageal reflux disease Generalized anxiety disorder Hiatal hernia History of myocardial infarction Hyperlipidemia Hypertension Intervertebral disc disorder of lumbar region with myelopathy Irritable bowel syndrome Myocardial infarction (HCC) Old myocardial infarction Peripheral vascular disease (HCC) PERS HX COLONIC POLYPS Preoperative testing 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 Sleep apnea SOB (shortness of breath) 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) Type 2 diabetes mellitus (HCC) PAST SURGICAL HISTORY Procedure Laterality Date AMPUTATION OF LOWER LEG Left 05/05/2022 Left above knee amputation AMPUTATION OF LOWER LEG Right 09/17/2023 Right above-knee amputation ANGIOPLASTY 1998, 2004, 2014 CAROTID ENDARTERECTOMY Bilateral right 02/2013, left 08/2001 COLONOSCOPY 05/26/2023 COLONOSCOPY FLX DX W/COLLJ SPEC WHEN PFRMD 2000 Colonoscopy with polypectomies COLONOSCOPY SCREENING 07/04/2021 tubular adenomas x5, severe diverticulosis ESOPHAGOGASTRODUODENOSCOPY TRANSORAL DIAGNOSTIC 2000 EGD reportedly normal EXPLORATION GROIN Left 04/29/2018 Left Groin Exploration, Thrombectomy of Left Limb of Axillo-Bifemoral Bypass, Revision of Left Femoral Anastomosis INSERT INTRACORONARY STENT 1998 RCA LAPAROSCOPY SURG CHOLECYSTECTOMY 1997 Cholecystectomy, lap LEFT HEART CATH,PERCUTANEOUS 1998 Cardiac cath, L heart PAST SURGICAL HISTORY OF Carotid stenosis PAST SURGICAL HISTORY OF Bilateral 12/25/2016 Axillo bifem bypass PAST SURGICAL HISTORY OF ureter removal STENT PLACEMENT 1998 BMS RCA STENT PLACEMENT 11/2013 MARVIN RCA FAMILY HISTORY Problem Relation Age of Onset Ischemic Heart Disease Father Cancer Father Coronary Artery Disease Father Breast Cancer Mother Social History Tobacco Use Smoking status: Former Current packs/day: 0.00 Types: Cigarettes Quit date: 03/06/1999 Years since quittin.6 Smokeless tobacco: Never Tobacco comments: Start date: 1969; Stop date: 1998 Vaping Use Vaping status: Never Used Substance Use Topics Alcohol use: No Comment: abstinent x 6 yrs Drug use: No Prior to Admission Medications Prescriptions Last Dose Informant Patient Reported? Taking? ACETAMINOPHEN (TYLENOL ORAL) Yes Yes Sig: Take 1-2 tablets by mouth every 6 hours as needed. Blood-Glucose Meter,Continuous (DEXCOM G7 SERVICE BAR CASHIER) misc No Yes Sig: Check glucose throughout the day. Patient is on insulin Blood-Glucose Sensor (DEXCOM G7 SENSOR) katlyn No Yes Si Each every 2 weeks. Patient is on insulin MULTIVIT ANDMINERALS/FERROUS FUM (MULTI VITAMIN ORAL) Yes Yes Sig: Take by mouth once daily. TRESIBA FLEXTOUCH U-100 100 unit/mL (3 mL) injection pen No Yes Sig: Inject 28 Units subcutaneously daily at bedtime. UNIFINE PENTIPS PLUS 32 gauge x 5/32 No Yes Sig: Use for insulin pen injections 5 times daily, as directed. DX: E11.42, E11.65, Z79.4 amLODIPine (NORVASC) 5 mg tablet No Yes Sig: Take 1 tablet by mouth once daily. ascorbic acid, vitamin C, (VITAMIN C) 500 mg tablet No Yes Sig: Take 1 tablet by mouth once daily. aspirin 81 mg chewable tablet No Yes Sig: Take 1 tablet by mouth once daily. clopidogrel (PLAVIX) 75 mg tablet No Yes Sig: Take 1 tablet by mouth once daily escitalopram oxalate (LEXAPRO) 10 mg tablet No Yes Si (more content not included)... Normal [facility] Creat ?Tm Ur-mCncon 10-04-19 25 Creatinine (U) [Mass/Vol] 179.8 mg/dL Normal 20.0-300.0 [facility] Comment on above: Order Comment: Speci men Type: BLOOD SPECIMEN Ordering Facility: [facility] Address: [address] [place] [address] Performed By: #### 2 4323-8, 3040-3, 42489-6, 29421-3, [id number] #### [facility] CLIA [id number] [address] [place] [address] [place] Gas and Carbon monoxide pane l (BldV)on 10-04-2024 BASE DEFICIT, VENOUS -4 mmol/L Low -2-0 [facility] Comment on above: Order Comment: Dahianai men Type: BLOOD SPECIMEN Ordering Facility: [facility] Address: [address] [place] [address] Performed By: #### 2 4323-8, 3040-3, 36961-5, 81819-5, [id number] #### [facility] CLIA [id number] [address] [place] [address] [place] Carboxyhemoglobin (BldV) [Mass fraction] 1.1 % Normal 0.0-2.0 [facility] Comment on above: Order Comment: Speci men Type: BLOOD SPECIMEN Ordering Facility: [facility] Address: [address] [place] [address] Result Comment: Carb oxyhemoglobin Reference Range for Smokers: 2.0-8.0% Performed By: #### 2 4323-8, 3040-3, 73840-1, 30718-2, [id number] #### [facility] CLIA [id number] [address] [place] [address] [place] CO2 (BldV) [Partial pressure] 46 mm[Hg] Normal 42-55 [facility] Comment on above: Order Comment: Dahianai men Type: BLOOD SPECIMEN Ordering Facility: [facility] Address: [address] [place] [address] Performed By: #### 2 4323-8, 3040-3, 16989-4, 59777-3, [id number] #### [facility] CLIA [id number] [address] [place] [address] [place] CO2 adjusted to patient's actual temperature (BldV) [Partial pressure] Normal [facility] Comment on above: Order Comment: Speci men Type: BLOOD SPECIMEN Ordering Facility: [facility] Address: [address] [place] [address] Performed By: #### 2 4323-8, 3040-3, 86936-7, 56624-5, [id number] #### [facility] CLIA [id number] [address] [place] [address] [place] HCO3 (Bld) [Moles/Vol] 23 mmol/L Low 24-28 [facility] Comment on above: Order Comment: Speci men Type: BLOOD SPECIMEN Ordering Facility: [facility] Address: [address] [place] [address] Performed By: #### 2 4323-8, 3040-3, 37262-4, , [id number] #### [facility] CLIA [id number] [address] [place] [address] [place] Hemoglobin (Bld) [Mass/Vol] 10.6 g/dL Low 13.0-17.0 [facility] Comment on above: Order Comment: Speci men Type: BLOOD SPECIMEN Ordering Facility: [facility] Address: [address] [place] [address] Performed By: #### 2 4323-8, 3040-3, 98453-9, , [id number] #### [facility] CLIA [id number] [address] [place] [address] [place] Lactate [Moles/Vol] 0.7 mmol/L Normal 0.5-2.2 [facility] Comment on above: Order Comment: Speci men Type: BLOOD SPECIMEN Ordering Facility: [facility] Address: [address] [place] [address] Performed By: #### 2 4323-8, 3040-3, 13716-0, 96062-5, [id number] #### [facility] CLIA [id number] [address] [place] Methemoglobin (Bld) [Mass fraction] % Normal 0.0-1.5 [facility] Comment on above: Order Comment: Speci men Type: BLOOD SPECIMEN Ordering Facility: [facility] Address: [address] [place] [address] Performed By: #### 2 4323-8, 3040-3, 45356-3, 32187-2, [id number] #### [facility] CLIA [id number] [address] O2 THERAPY RA=Room Air [facility] Comment on above: Order Comment: Speci men Type: BLOOD SPECIMEN Ordering Facility: [facility] Address: [address] [place] [address] Performed By: #### 2 4323-8, 3040-3, 61813-2, 78268-4, [id number] #### [facility] CLIA [id number] [address] [place] Oxygen (BldV) [Partial pressure] 35 mm[Hg] Normal 35-45 [facility] Comment on above: Order Comment: Speci men Type: BLOOD SPECIMEN Ordering Facility: [facility] Address: [address] [place] [address] Performed By: #### 2 4323-8, 3040-3, 44748-6, 58486-3, [id number] #### [facility] CLIA [id number] [address] Oxygen adjusted to patient's actual temperature (BldV) [Partial pressure] [facility] Comment on above: Order Comment: Speci men Type: BLOOD SPECIMEN Ordering Facility: [facility] Address: [address] [place], [place] [address] Performed By: #### 2 4323-8, 3040-3, 26152-2, 38290-9, [id number] #### [facility] CLIA [id number] [address] [place] Oxygen saturation in Venous blood 63 % Normal 60-85 [facility] Comment on above: Order Comment: Speci men Type: BLOOD SPECIMEN Ordering Facility: [facility] Address: [address] [place] [address] Performed By: #### 2 4323-8, 3040-3, 57069-7, 03065-2, [id number] #### [facility] CLIA [id number] [address] [place] [address] [place] Oxyhemoglobin (BldV) [Mass fraction] 62 % Normal 60-85 [facility] Comment on above: Order Comment: Speci men Type: BLOOD SPECIMEN Ordering Facility: [facility] Address: [address] [place] [address] Performed By: #### 2 4323-8, 3040-3, 81313-8, 48253-5, [id number] #### [facility] CLIA [id number] [address] [place] [address] [place] pH (BldV) 7.31 [pH] Low 7.32-7.42 [facility] Comment on above: Order Comment: Speci men Type: BLOOD SPECIMEN Ordering Facility: [facility] Address: [address] [place] [address] Performed By: #### 2 4323-8, 3040-3, 62644-1, 17331-0, [id number] #### [facility] CLIA [id number] [address] [place] pH adjusted to patient's actual temperature (BldV) Normal [facility] Comment on above: Order Comment: Speci men Type: BLOOD SPECIMEN Ordering Facility: [facility] Address: [address] [place] [address] Performed By: #### 2 4323-8, 3040-3, 51791-6, 24978-2, [id number] #### [facility] CLIA [id number] [address] [place] [address] [place] Potassium [Moles/Vol] 5.4 mmol/L High 3.5-5.0 [facility] Comment on above: Order Comment: Speci men Type: BLOOD SPECIMEN Ordering Facility: [facility] Address: [address] [place] [address] Performed By: #### 2 4323-8, 3040-3, 84528-0, 73950-4, [id number] #### [facility] CLIA [id number] [address] [place] [address] [place] Magnesium SerPl-mCncon 10-04 Magnesium [Mass/Vol] 1.5 mg/dL Low 1.7-2.3 [facility] Comment on above: Order Comment: Speci men Type: BLOOD SPECIMEN Ordering Facility: [facility] Address: [address] [place] [address] Performed By: #### 2 4323-8, 3040-3, 81237-9, 35571-3, [id number] #### [facility] CLIA [id number] [address] [place] [address] [place] Osmolality Uron 10-04-2024 Osmolality (U) [Osmolality] 377 mosm/kg Normal 50-1200 [facility] Comment on above: Order Comment: Speci men Type: BLOOD SPECIMEN Ordering Facility: [facility] Address: [address] [place] [address] Performed By: #### 2 4323-8, 3040-3, 59192-7, 14706-3, [id number] #### [facility] CLIA [id number] [address] [place] [address] [place] Phosphate SerPl-mCncon 10-04 Phosphate [Mass/Vol] 4.0 mg/dL Normal 2.7-4.8 [facility] Comment on above: Order Comment: Speci men Type: BLOOD SPECIMEN Ordering Facility: [facility] Address: [address] [place] [address] Performed By: #### 2 4323-8, 3040-3, 63111-9, 99745-1, [id number] #### [facility] CLIA [id number] [address] [place] [address] [place] Phosphate [Mass/Vol] 4.0 mg/dL Normal 2.7-4.8 [facility] Comment on above: Order Comment: Speci men Type: BLOOD SPECIMEN Ordering Facility: [facility] Address: [address] [place] [address] Performed By: #### 2 4323-8, 3040-3, 24574-5, 60568-4, [id number] #### [facility] CLIA [id number] [address] [place] [address] [place] Potassium ?Tm Ur-sCncon 09-20 Potassium Unsp time (U) [Moles/Vol] 26.9 mmol/L Normal 10.0-160.0 [facility] Comment on above: Order Comment: Speci men Type: BLOOD SPECIMEN Ordering Facility: [facility] Address: [address] [place] [address] Performed By: #### 2 4323-8, 3040-3, 50059-5, 23872-1, [id number] #### [facility] CLIA [id number] [address] Prot/Creat Uron 10-04-2024 Protein/Creatinine (U) [Mass ratio] 0.04 mg/mg Normal <0.15 [facility] Comment on above: Order Comment: Speci men Type: BLOOD SPECIMEN Ordering Facility: [facility] Address: [address] [place] [address] Result Comment: Adul t Proteinuria Categories: <0.15 mg/mg is considered normal to mildly increased 0.15 - 0.50 mg/mg is considered moderately increased >0.50 mg/mg is considered severely increased KDIGO. (2013). KDIGO 2012 Clinical Practice Guideline for the Evaluation and Management of Chronic Kidney Disease. Official Journal of the International Society of Nephrology, 3(1), 1-150. Performed By: #### 2 4323-8, 3040-3, 39886-5, 46105-8, [id number] #### [facility] CLIA [id number] [address] [place] Protein/Creatinine (U) [Mass ratio]on 10-04-2024 Protein (U) [Mass/Vol] 7 mg/dL Normal 0-20 [facility] Comment on above: Order Comment: Speci men Type: BLOOD SPECIMEN Ordering Facility: [facility] Address: [address] [place] [address] Performed By: #### 2 4323-8, 3040-3, 94822-0, 08448-8, [id number] #### [facility] CLIA [id number] [address] [place] [address] [place] Sodium ?Tm Ur-sCncon 025 Sodium Unsp time (U) [Moles/Vol] 68 mmol/L Normal 14-216 [facility] Comment on above: Order Comment: Speci men Type: BLOOD SPECIMEN Ordering Facility: [facility] Address: [address] [place] [address] Performed By: #### 2 4323-8, 3040-3, 41448-2, 84392-1, [id number] #### [facility] CLIA [id number] [address] [place] [address] [place] URINALYSIS, REFLEX MICROSCOP ICon 10-04-2024 Bilirubin Ql (U) Negative Normal Negative [facility] Comment on above: Order Comment: Speci men Type: BLOOD SPECIMEN Ordering Facility: [facility] Address: [address] [place] [address] Performed By: #### 2 4323-8, 3040-3, 89191-4, 92485-6, [id number] #### [facility] CLIA [id number] [address] [place] [address] [place] Clarity (Unsp spec) Clear Normal Clear [facility] Comment on above: Order Comment: Speci men Type: BLOOD SPECIMEN Ordering Facility: [facility] Address: [address] [place] [address] Performed By: #### 2 4323-8, 3040-3, 08200-3, 77493-5, [id number] #### [facility] CLIA [id number] [address] [place] [address] [place] Color (U) Yellow Normal Yellow [facility] Comment on above: Order Comment: Speci men Type: BLOOD SPECIMEN Ordering Facility: [facility] Address: [address] [place] [address] Performed By: #### 2 4323-8, 3040-3, 94727-9, 83033-3, [id number] #### [facility] CLIA [id number] [address] Glucose Test strip (U) [Mass/Vol] Negative Normal Negative [facility] Comment on above: Order Comment: Speci men Type: BLOOD SPECIMEN Ordering Facility: [facility] Address: [address] [place] [address] Performed By: #### 2 4323-8, 3040-3, 12394-5, 43255-4, [id number] #### [facility] CLIA [id number] [address] Hemoglobin Ql (U) Negative Normal Negative [facility] Comment on above: Order Comment: Speci men Type: BLOOD SPECIMEN Ordering Facility: [facility] Address: [address] [place] [address] Performed By: #### 2 4323-8, 3040-3, 81592-9, 80327-3, [id number] #### [facility] CLIA [id number] [address] Ketones Ql (U) Negative Normal Negative [facility] Comment on above: Order Comment: Speci men Type: BLOOD SPECIMEN Ordering Facility: [facility] Address: [address] [place] [address] Performed By: #### 2 4323-8, 3040-3, 80465-2, 91258-3, [id number] #### [facility] CLIA [id number] [address] Leukocyte esterase Test strip Ql (U) Negative Normal Negative [facility] Comment on above: Order Comment: Speci men Type: BLOOD SPECIMEN Ordering Facility: [facility] Address: [address] [place] [address] Performed By: #### 2 4323-8, 3040-3, 67904-0, 09623-1, [id number] #### [facility] CLIA [id number] [address] Nitrite Ql (U) Negative Normal Negative [facility] Comment on above: Order Comment: Speci men Type: BLOOD SPECIMEN Ordering Facility: [facility] Address: [address] [place] [address] Performed By: #### 2 4323-8, 3040-3, 67422-3, 80963-1, [id number] #### [facility] CLIA [id number] [address] [place] [address] [place] pH (U) 6.0 [pH] Normal 5.0-8.0 [facility] Comment on above: Order Comment: Speci men Type: BLOOD SPECIMEN Ordering Facility: [facility] Address: [address] [place] [address] Performed By: #### 2 4323-8, 3040-3, 82051-1, 49993-0, [id number] #### [facility] CLIA [id number] [address] [place] [address] [place] Protein (U) [Mass/Vol] Negative Normal Negative [facility] Comment on above: Order Comment: Speci men Type: BLOOD SPECIMEN Ordering Facility: [facility] Address: [address] [place] [address] Performed By: #### 2 4323-8, 3040-3, 74622-9, 63084-7, [id number] #### [facility] CLIA [id number] [address] [place] [address] [place] Specific gravity (U) [Rel density] 1.020 Normal 1.005-1.030 [facility] Comment on above: Order Comment: Speci men Type: BLOOD SPECIMEN Ordering Facility: [facility] Address: [address] [place] [address] Performed By: #### 2 4323-8, 3040-3, 46254-3, 72432-2, [id number] #### [facility] CLIA [id number] [address] [place] [address] [place] Urobilinogen Ql (U) 0.2 EU/dL Normal 0.2-1.0 EU/dL [facility] Comment on above: Order Comment: Speci men Type: BLOOD SPECIMEN Ordering Facility: [facility] Address: [address] [place] [address] Performed By: #### 2 4323-8, 3040-3, 79997-2, 90606-4, [id number] #### [facility] CLIA [id number] [address] [place] [address] [place] US KIDNEY/BLADDERon 10-04-19 US KIDNEY/BLADDER * * *Final Report* * * DATE OF EXAM: Oct 04 2024 11:01AM RAJAN 1055 - US KIDNEY/BLADDER / PROCEDURE REASON: Kidney failure, acute * * * * Physician Interpretation * * * * EXAMINATION: RENAL ULTRASOUND CLINICAL HISTORY: Acute kidney failure TECHNIQUE: Sonography of the kidneys and urinary bladder was performed. Images were obtained and stored in a permanent archive and interpreted remotely. MQ: UR_1 COMPARISON: Correlation made to CT abdomen dated 07/09/2023 RESULT: Right Kidney: -Renal length: 10.6 cm -Parenchyma: Normal parenchymal echogenicity. Normal parenchymal thickness. -Collecting system: No hydronephrosis. -Calculus: No echogenic, shadowing calculus. -Lesion: None. Left Kidney: -Renal length: 11.5 cm -Parenchyma: Normal parenchymal echogenicity. Normal parenchymal thickness. -Collecting system: No hydronephrosis. -Calculus: No echogenic, shadowing calculus. -Lesion: None. Bladder: Partially distended. IMPRESSION: Normal sonographic appearance of the kidneys. Rippler: PSCB Transcribe Date/Time: Oct 04 2024 11:02A Dictated by : ZOLTAN SWAIN MD This examination was interpreted and the report reviewed and electronically signed by: ZOLTAN SWAIN MD on Oct 04 2024 11:07AM EST [id number] Normal [facility] Bas Metab 2000 Pnl SerPlon 0 10-03-2024 Anion gap [Moles/Vol] 10 mmol/L Normal 05-04 [facility] Comment on above: Order Comment: Speci men Type: BLOOD SPECIMEN Ordering Facility: [facility] Address: [address] [place] [address] [place] [address] Performed By: #### 2 4323-8, 3040-3, 54872-4, 65036-8, [id number] #### [facility] CLIA [id number] [address] [place] [address] [place] CO2 [Moles/Vol] 20 mmol/L Low [facility] Comment on above: Order Comment: Speci men Type: BLOOD SPECIMEN Ordering Facility: [facility] Address: [address] [place] [address] Performed By: #### 2 4323-8, 3040-3, 41420-5, 97145-3, [id number] #### [facility] CLIA [id number] [address] [place] [address] [place] Urea nitrogen [Mass/Vol] 25 mg/dL High 9-24 [facility] Comment on above: Order Comment: Speci men Type: BLOOD SPECIMEN Ordering Facility: [facility] Address: [address] [place] [address] Performed By: #### 2 4323-8, 3040-3, 79213-7, 87855-2, [id number] #### [facility] CLIA [id number] [address] [place] [address] [place] Basic metabolic 2000 panelon 10-03-2024 Anion gap [Moles/Vol] 11 mmol/L Normal 8-15 [facility] Comment on above: Order Comment: Speci men Type: BLOOD SPECIMEN Ordering Facility: [facility] Address: [address] [place] [address] Performed By: #### 2 4323-8, 3040-3, 45904-5, 77017-9, [id number] #### [facility] CLIA [id number] [address] [place] [address] [place] Calcium [Mass/Vol] 9.9 mg/dL Normal 8.5-10.2 [facility] Comment on above: Order Comment: Speci men Type: BLOOD SPECIMEN Ordering Facility: [facility] Address: [address] [place] [address] Performed By: #### 2 4323-8, 3040-3, 02728-3, 49315-0, [id number] #### [facility] CLIA [id number] [address] [place] [address] [place] Chloride [Moles/Vol] 103 mmol/L Normal 98-107 [facility] Comment on above: Order Comment: Speci men Type: BLOOD SPECIMEN Ordering Facility: [facility] Address: [address] [place], [place] [address] Performed By: #### 2 4323-8, 3040-3, 57023-5, 78455-2, [id number] #### [facility] CLIA [id number] [address] [place] [facility] CO2 [Moles/Vol] 22 mmol/L Normal 22-30 [facility] Comment on above: Order Comment: Speci men Type: BLOOD SPECIMEN Ordering Facility: [facility] Address: [address] [place] [address] Performed By: #### 2 4323-8, 3040-3, 22270-9, 41544-1, [id number] #### [facility] CLIA [id number] [address] [place] Creatinine [Mass/Vol] 1.45 mg/dL High 0.73-1.22 [facility] Comment on above: Order Comment: Speci men Type: BLOOD SPECIMEN Ordering Facility: [facility] Address: [address] [place] [address] Performed By: #### 2 4323-8, 3040-3, 47911-2, 41593-6, [id number] #### [facility] CLIA [id number] [address] OF [facility] Creatinine and Glomerular filtration rate.predicted panel (S/P/Bld) 51 mL/min/1.73m??? Low >=60 [facility] Comment on above: Order Comment: Speci men Type: BLOOD SPECIMEN Ordering Facility: [facility] Address: [address] [place] [address] Result Comment: Mary Kay mated Glomerular Filtration Rate (eGFR) is calculated using the 2020 CKD-EPI creatinine equation. This equation utilizes serum creatinine, sex, and age as parameters. The creatinine assay has traceable calibration to isotope dilution-mass spectrometry. Refer to KDIGO guidelines for clinical interpretation. In patients with unstable renal function, e.g. those with acute kidney injury, the eGFR may not accurately reflect actual GFR. Performed By: #### 2 4323-8, 3040-3, 63322-5, 48373-1, [id number] #### [facility] CLIA [id number] [address] [place] [address] [place] Glucose [Mass/Vol] 113 mg/dL High 74-99 [facility] Comment on above: Order Comment: Jose Cruz johnson Type: BLOOD SPECIMEN Ordering Facility: [facility] Address: [address] [place], [place] [address] Result Comment: The [place] [employer] (ADA) provides guidance for cutoff values for fasting glucose and random glucose. The ADA defines fasting as no caloric intake for at least 8 hours. Fasting plasma glucose results between 100 to 125 mg/dL indicate increased risk for diabetes (prediabetes). Fasting plasma glucose results greater than or equal to 126 mg/dL meet the criteria for diagnosis of diabetes. In the absence of unequivocal hyperglycemia, results should be confirmed by repeat testing. In a patient with classic symptoms of hyperglycemia or hyperglycemic crisis, random plasma glucose results greater than or equal to 200 mg/dL meet the criteria for diagnosis of diabetes. Reference: Standards of Medical Care in Diabetes 2016, [place] [employer] Association. Diabetes Care. 2016.39(Suppl 1). Performed By: #### 2 4323-8, 3040-3, 64763-1, 47449-6, [id number] #### [facility] CLIA [id number] [address] [place] [address] [place] Potassium [Moles/Vol] 6.4 mmol/L Critically high 3.7-5.1 [facility] Comment on above: Order Comment: Jose Cruz johnson Type: BLOOD SPECIMEN Ordering Facility: [facility] Address: [address] [place] [address] Performed By: #### 2 4323-8, 3040-3, 03520-2, 29590-6, [id number] #### [facility] CLIA [id number] 1000 [place] [id number] [place] Sodium [Moles/Vol] 136 mmol/L Normal 136-144 [facility] Comment on above: Order Comment: Jose Cruz johnson Type: BLOOD SPECIMEN Ordering Facility: [facility] Address: [address] [place], [place] [address] Performed By: #### 2 4323-8, 3040-3, 18744-0, 63436-3, [id number] #### [facility] CLIA [id number] [address] [place] [address] [place] Urea nitrogen [Mass/Vol] 28 mg/dL High 9-24 [facility] Comment on above: Order Comment: Speci men Type: BLOOD SPECIMEN Ordering Facility: [facility] Address: [address] [place] [address] Performed By: #### 2 4323-8, 3040-3, 56813-0, 30572-6, [id number] #### [facility] CLIA [id number] [address] [place] [address] [place] Calcium [Mass/Vol] 9.8 mg/dL Normal 8.5-10.2 [facility] Comment on above: Order Comment: Speci men Type: BLOOD SPECIMEN Ordering Facility: [facility] Address: [address] [place] [address] Performed By: #### 2 4323-8, 3040-3, 75735-5, 54011-0, [id number] #### [facility] CLIA [id number] [address] [place] [address] [place] Chloride [Moles/Vol] 104 mmol/L Normal 98-107 [facility] Comment on above: Order Comment: Speci men Type: BLOOD SPECIMEN Ordering Facility: [facility] Address: [address] [place] [address] Performed By: #### 2 4323-8, 3040-3, 57890-0, 99798-3, [id number] #### [facility] CLIA [id number] [address] [place] [address] [place] Creatinine [Mass/Vol] 1.28 mg/dL High 0.73-1.22 [facility] Comment on above: Order Comment: Speci men Type: BLOOD SPECIMEN Ordering Facility: [facility] Address: [address] [place] [address] Performed By: #### 2 4323-8, 3040-3, 61649-3, 43895-5, [id number] #### [facility] CLIA [id number] [address] [place] [address] [place] Creatinine and Glomerular filtration rate.predicted panel (S/P/Bld) 59 mL/min/1.73m??? Low >=60 [facility] Comment on above: Order Comment: Jose Cruz johnson Type: BLOOD SPECIMEN Ordering Facility: [facility] Address: [address] [place] [address] Result Comment: Mary Kay mated Glomerular Filtration Rate (eGFR) is calculated using the 2020 CKD-EPI creatinine equation. This equation utilizes serum creatinine, sex, and age as parameters. The creatinine assay has traceable calibration to isotope dilution-mass spectrometry. Refer to KDIGO guidelines for clinical interpretation. In patients with unstable renal function, e.g. those with acute kidney injury, the eGFR may not accurately reflect actual GFR. Performed By: #### 2 4323-8, 3040-3, 93940-5, 73308-0, [id number] #### [facility] CLIA [id number] [address] [place] [address] [place] Glucose [Mass/Vol] 141 mg/dL High 74-99 [facility] Comment on above: Order Comment: Jose Cruz johnson Type: BLOOD SPECIMEN Ordering Facility: [facility] Address: [address] [place] [address] Result Comment: The [place] Diabetes Association (ADA) provides guidance for cutoff values for fasting glucose and random glucose. The ADA defines fasting as no caloric intake for at least 8 hours. Fasting plasma glucose results between 100 to 125 mg/dL indicate increased risk for diabetes (prediabetes). Fasting plasma glucose results greater than or equal to 126 mg/dL meet the criteria for diagnosis of diabetes. In the absence of unequivocal hyperglycemia, results should be confirmed by repeat testing. In a patient with classic symptoms of hyperglycemia or hyperglycemic crisis, random plasma glucose results greater than or equal to 200 mg/dL meet the criteria for diagnosis of diabetes. Reference: Standards of Medical Care in Diabetes 2016, [place] [employer]. Diabetes Care. 2016.39(Suppl 1). Performed By: #### 2 4323-8, 3040-3, 35600-2, 73967-6, [id number] #### [facility] CLIA [id number] [address] [place] [address] [place] Potassium [Moles/Vol] 7.4 mmol/L Critically high 3.7-5.1 [facility] Comment on above: Order Comment: Speci men Type: BLOOD SPECIMEN Ordering Facility: [facility] Address: [address] [place] [address] Performed By: #### 2 4323-8, 3040-3, 79728-5, 96468-7, [id number] #### [facility] CLIA [id number] [address] [place] [address] [place] Sodium [Moles/Vol] 134 mmol/L Low 136-144 [facility] Comment on above: Order Comment: Speci men Type: BLOOD SPECIMEN Ordering Facility: [facility] Address: [address] [place] [address] Performed By: #### 2 4323-8, 3040-3, 71104-3, 22463-1, [id number] #### [facility] CLIA [id number] [address] [place] CBC W Auto Differential pane l (Bld)on 10-03-2024 Basophils (Bld) [#/Vol] 0.07 10*3/uL Normal <0.11 [facility] Comment on above: Order Comment: Speci men Type: BLOOD SPECIMEN Ordering Facility: [facility] Address: [address] [place] [address] Performed By: #### 2 4323-8, 3040-3, 10496-5, 11431-1, [id number] #### [facility] CLIA [id number] [address] [place] Basophils/100 WBC (Bld) 0.8 % Normal [facility] Comment on above: Order Comment: Speci men Type: BLOOD SPECIMEN Ordering Facility: [facility] Address: [address] [place] [address] Performed By: #### 2 4323-8, 3040-3, 01517-6, 25524-0, [id number] #### [facility] CLIA [id number] [address] Differential cell count method Nom (Bld) Auto Normal [facility] Comment on above: Order Comment: Speci men Type: BLOOD SPECIMEN Ordering Facility: [facility] Address: [address] [place] [address] Performed By: #### 2 4323-8, 3040-3, 05785-0, 56760-0, [id number] #### [facility] CLIA [id number] [address] [place] [address] [place] Eosinophils (Bld) [#/Vol] 0.13 10*3/uL Normal <0.46 [facility] Comment on above: Order Comment: Speci men Type: BLOOD SPECIMEN Ordering Facility: [facility] Address: [address] [place] [address] Performed By: #### 2 4323-8, 3040-3, 58413-5, 57938-0, [id number] #### [facility] CLIA [id number] [address] [place] Eosinophils/100 WBC (Bld) 1.5 % Normal [facility] Comment on above: Order Comment: Speci men Type: BLOOD SPECIMEN Ordering Facility: [facility] Address: [address] [place] [address] Performed By: #### 2 4323-8, 3040-3, 57335-6, 81559-9, [id number] #### [facility] CLIA [id number] [address] [place] Erythrocyte distribution width (RBC) [Ratio] 12.7 % Normal 11.5-15.0 [facility] Comment on above: Order Comment: Speci men Type: BLOOD SPECIMEN Ordering Facility: [facility] Address: [address] [place] [address] Performed By: #### 2 4323-8, 3040-3, 74118-7, 51770-1, [id number] #### [facility] CLIA [id number] [address] [place] Hematocrit (Bld) [Volume fraction] 33.9 % Low 39.0-51.0 [facility] Comment on above: Order Comment: Speci men Type: BLOOD SPECIMEN Ordering Facility: [facility] Address: [address] [place] [address] Performed By: #### 2 4323-8, 3040-3, 34392-7, 87560-9, [id number] #### [facility] CLIA [id number] [address] [place] [address] [place] Hemoglobin (Bld) [Mass/Vol] 11.3 g/dL Low 13.0-17.0 [facility] Comment on above: Order Comment: Speci men Type: BLOOD SPECIMEN Ordering Facility: [facility] Address: [address] [place] [address] Performed By: #### 2 4323-8, 3040-3, 73488-5, 73866-9, [id number] #### [facility] CLIA [id number] [address] [place] [address] [place] Immature granulocytes (Bld) [#/Vol] 0.03 10*3/uL Normal <0.10 [facility] Comment on above: Order Comment: Speci men Type: BLOOD SPECIMEN Ordering Facility: [facility] Address: [address] [place] [address] Performed By: #### 2 4323-8, 3040-3, 81245-1, , [id number] #### [facility] CLIA [id number] [address] [place] [address] [place] Immature granulocytes/100 WBC (Bld) 0.3 % Normal [facility] Comment on above: Order Comment: Speci men Type: BLOOD SPECIMEN Ordering Facility: [facility] Address: [address] [place] [address] Performed By: #### 2 4323-8, 3040-3, 65136-2, 46713-8, [id number] #### [facility] CLIA [id number] [address] [place] [address] [place] Lymphocytes (Bld) [#/Vol] 1.26 10*3/uL Normal 1.00-4.00 [facility] Comment on above: Order Comment: Speci men Type: BLOOD SPECIMEN Ordering Facility: [facility] Address: [address] [place] [address] Performed By: #### 2 4323-8, 3040-3, 96684-8, 85681-3, [id number] #### [facility] CLIA [id number] [address] [place], [place] [address] [place] [address] STATES [facility] Lymphocytes/100 WBC (Bld) 14.4 % Normal [facility] Comment on above: Order Comment: Speci men Type: BLOOD SPECIMEN Ordering Facility: [facility] Address: [address] [place] [address] Performed By: #### 2 4323-8, 3040-3, 11940-5, 04184-5, [id number] #### [facility] CLIA [id number] [address] [place] MCH (RBC) [Entitic mass] 30.1 pg Normal 26.0-34.0 [facility] Comment on above: Order Comment: Speci men Type: BLOOD SPECIMEN Ordering Facility: [facility] Address: [address] [place] [address] Performed By: #### 2 4323-8, 3040-3, 80639-1, 04473-4, [id number] #### [facility] CLIA [id number] [address] [place] MCHC (RBC) [Mass/Vol] 33.3 g/dL Normal 30.5-36.0 [facility] Comment on above: Order Comment: Speci men Type: BLOOD SPECIMEN Ordering Facility: [facility] Address: [address] [place] [address] Performed By: #### 2 4323-8, 3040-3, 06996-1, 00843-0, [id number] #### [facility] CLIA [id number] [address] [place] MCV (RBC) [Entitic vol] 90.4 fL Normal 80.0-100.0 [facility] Comment on above: Order Comment: Speci men Type: BLOOD SPECIMEN Ordering Facility: [facility] Address: [address] [place] [address] Performed By: #### 2 4323-8, 3040-3, 14146-8, 90677-4, [id number] #### [facility] CLIA [id number] [address] [place] [address] [place] Monocytes (Bld) [#/Vol] 0.61 10*3/uL Normal <0.87 [facility] Comment on above: Order Comment: Speci men Type: BLOOD SPECIMEN Ordering Facility: [facility] Address: [address] [place] [address] Performed By: #### 2 4323-8, 3040-3, 77432-0, 16804-4, [id number] #### [facility] CLIA [id number] [address] [place] [address] [place] Monocytes/100 WBC (Bld) 7.0 % Normal [facility] Comment on above: Order Comment: Speci men Type: BLOOD SPECIMEN Ordering Facility: [facility] Address: [address] [place] [address] Performed By: #### 2 4323-8, 3040-3, 96177-3, 54242-2, [id number] #### [facility] CLIA [id number] [address] [place] [address] [place] Neutrophils (Bld) [#/Vol] 6.65 10*3/uL Normal 1.45-7.50 [facility] Comment on above: Order Comment: Speci men Type: BLOOD SPECIMEN Ordering Facility: [facility] Address: [address] [place] [address] Performed By: #### 2 4323-8, 3040-3, 53483-1, 46828-0, [id number] #### [facility] CLIA [id number] [address] [place] [address] [place] Neutrophils/100 WBC (Bld) 76.0 % Normal [facility] Comment on above: Order Comment: Speci men Type: BLOOD SPECIMEN Ordering Facility: [facility] Address: [address] [place] [address] Performed By: #### 2 4323-8, 3040-3, 05119-2, 32622-9, [id number] #### [facility] CLIA [id number] [address] [place] [address] [place] Nucleated RBC (Bld) [#/Vol] 10*3/uL Normal <0.01 [facility] Comment on above: Order Comment: Speci men Type: BLOOD SPECIMEN Ordering Facility: [facility] Address: [address] [place] [address] Performed By: #### 2 4323-8, 3040-3, 42342-7, 73463-4, [id number] #### [facility] CLIA [id number] [address] [place] [address] [place] Nucleated RBC/100 WBC (Bld) [Ratio] 0.0 /100 WBC Normal [facility] Comment on above: Order Comment: Speci men Type: BLOOD SPECIMEN Ordering Facility: [facility] Address: [address] [place] [address] Performed By: #### 2 4323-8, 3040-3, 73775-5, 11944-1, [id number] #### [facility] CLIA [id number] [address] [place] [address] [place] Platelet mean volume (Bld) [Entitic vol] 10.2 fL Normal 9.0-12.7 [facility] Comment on above: Order Comment: Speci men Type: BLOOD SPECIMEN Ordering Facility: [facility] Address: [address] [place] [address] Performed By: #### 2 4323-8, 3040-3, 44833-7, 86217-2, [id number] #### [facility] CLIA [id number] [address] [place] [address] [place] Platelets (Bld) [#/Vol] 224 10*3/uL Normal 150-400 [facility] Comment on above: Order Comment: Speci men Type: BLOOD SPECIMEN Ordering Facility: [facility] Address: [address] [place] [address] Performed By: #### 2 4323-8, 3040-3, 19165-7, 49700-9, [id number] #### [facility] CLIA [id number] [address] [place] [address] [place] RBC (Bld) [#/Vol] 3.75 10*6/uL Low 4.20-6.00 [facility] Comment on above: Order Comment: Speci men Type: BLOOD SPECIMEN Ordering Facility: [facility] Address: [address] [place], [place] [address] Performed By: #### 2 4323-8, 3040-3, 25143-5, 83170-2, [id number] #### [facility] CLIA [id number] [address] [place] [address] [place] WBC (Bld) [#/Vol] 8.75 10*3/uL Normal 3.70-11.00 [facility] Comment on above: Order Comment: Speci men Type: BLOOD SPECIMEN Ordering Facility: [facility] Address: [address] [place] [address] Performed By: #### 2 4323-8, 3040-3, 94372-3, 28944-4, [id number] #### [facility] CLIA [id number] [address] [place] [address] [place] CNPNon 10-03-2024 CNPN Normal [facility] metabolic 2000 panelon 10-03-2024 Albumin [Mass/Vol] 4.6 g/dL Normal 3.9-4.9 [facility] Comment on above: Order Comment: Speci men Type: BLOOD SPECIMEN Ordering Facility: [facility] Address: [address] [place] [address] Performed By: #### 2 4323-8, 3040-3, 33862-9, 86942-9, [id number] #### [facility] CLIA [id number] [address] [place] [address] [place] ALP [Catalytic activity/Vol] 57 U/L Normal 38-113 [facility] Comment on above: Order Comment: Speci men Type: BLOOD SPECIMEN Ordering Facility: [facility] Address: [address] [place] [address] Performed By: #### 2 4323-8, 3040-3, 52336-7, 17160-2, [id number] #### [facility] CLIA [id number] [address] [place] [address] [place] ALT [Catalytic activity/Vol] 12 U/L Normal 10-54 [facility] Comment on above: Order Comment: Speci men Type: BLOOD SPECIMEN Ordering Facility: [facility] Address: [address] [place] [address] Performed By: #### 2 4323-8, 3040-3, 58610-7, 06853-7, [id number] #### [facility] CLIA [id number] [address] [place] [address] [place] AST [Catalytic activity/Vol] 15 U/L Normal 14-40 [facility] Comment on above: Order Comment: Speci men Type: BLOOD SPECIMEN Ordering Facility: [facility] Address: [address] [place] [address] Performed By: #### 2 4323-8, 3040-3, 37516-1, 93060-3, [id number] #### [facility] CLIA [id number] [address] [place] [address] [place] Bilirubin [Mass/Vol] 0.4 mg/dL Normal 0.2-1.3 [facility] Comment on above: Order Comment: Speci men Type: BLOOD SPECIMEN Ordering Facility: [facility] Address: [address] [place] [address] Performed By: #### 2 4323-8, 3040-3, 04107-4, 43034-0, [id number] #### [facility] CLIA [id number] [address] [place] [address] [place] Calcium [Mass/Vol] 9.9 mg/dL Normal 8.5-10.2 [facility] Comment on above: Order Comment: Speci men Type: BLOOD SPECIMEN Ordering Facility: [facility] Address: [address] [place] [address] Performed By: #### 2 4323-8, 3040-3, 95118-8, 39806-2, [id number] #### [facility] CLIA [id number] [address] [place] [address] [place] Chloride [Moles/Vol] 103 mmol/L Normal 98-107 [facility] Comment on above: Order Comment: Speci men Type: BLOOD SPECIMEN Ordering Facility: [facility] Address: [address] [place] [address] Performed By: #### 2 4323-8, 3040-3, 81321-5, 97962-7, [id number] #### [facility] CLIA [id number] [address] [place] Creatinine [Mass/Vol] 1.18 mg/dL Normal 0.73-1.22 [facility] Comment on above: Order Comment: Jose Cruz johnson Type: BLOOD SPECIMEN Ordering Facility: [facility] Address: [address] [place] [address] Performed By: #### 2 4323-8, 3040-3, 26363-6, 49034-3, [id number] #### [facility] CLIA [id number] [address] Creatinine and Glomerular filtration rate.predicted panel (S/P/Bld) 66 mL/min/1.73m??? Normal >=60 [facility] Comment on above: Order Comment: Jose Cruz johnson Type: BLOOD SPECIMEN Ordering Facility: [facility] Address: [address] [place] [address] Result Comment: Mary Kay mated Glomerular Filtration Rate (eGFR) is calculated using the 2020 CKD-EPI creatinine equation. This equation utilizes serum creatinine, sex, and age as parameters. The creatinine assay has traceable calibration to isotope dilution-mass spectrometry. Refer to KDIGO guidelines for clinical interpretation. In patients with unstable renal function, e.g. those with acute kidney injury, the eGFR may not accurately reflect actual GFR. Performed By: #### 2 4323-8, 3040-3, 41566-2, 21775-8, [id number] #### [facility] CLIA [id number] [address] [place] Glucose [Mass/Vol] 182 mg/dL High 74-99 [facility] Comment on above: Order Comment: Jose Cruz johnson Type: BLOOD SPECIMEN Ordering Facility: [facility] Address: [address] [place] [address] Result Comment: The [place] Diabetes Association (ADA) provides guidance for cutoff values for fasting glucose and random glucose. The ADA defines fasting as no caloric intake for at least 8 hours. Fasting plasma glucose results between 100 to 125 mg/dL indicate increased risk for diabetes (prediabetes). Fasting plasma glucose results greater than or equal to 126 mg/dL meet the criteria for diagnosis of diabetes. In the absence of unequivocal hyperglycemia, results should be confirmed by repeat testing. In a patient with classic symptoms of hyperglycemia or hyperglycemic crisis, random plasma glucose results greater than or equal to 200 mg/dL meet the criteria for diagnosis of diabetes. Reference: Standards of Medical Care in Diabetes 2016, [place] [employer]. Diabetes Care. 2016.39(Suppl 1). Performed By: #### 2 4323-8, 3040-3, 73624-9, 35320-3, [id number] #### [facility] CLIA [id number] [address] [place] [address] [place] Potassium [Moles/Vol] 7.2 mmol/L Critically high 3.7-5.1 [facility] Comment on above: Order Comment: Jose Cruz johnson Type: BLOOD SPECIMEN Ordering Facility: [facility] Address: [address] [place] [address] Performed By: #### 2 4323-8, 3040-3, 01100-8, 60203-2, [id number] #### [facility] CLIA [id number] [address] [place] [address] [place] Protein [Mass/Vol] 7.7 g/dL Normal 6.3-8.0 [facility] Comment on above: Order Comment: Jose Cruz johnson Type: BLOOD SPECIMEN Ordering Facility: [facility] Address: [address] [place] [address] Performed By: #### 2 4323-8, 3040-3, 67979-3, 32034-2, [id number] #### [facility] CLIA [id number] [address] [place] [address] [place] Sodium [Moles/Vol] 133 mmol/L Low 136-144 [facility] Comment on above: Order Comment: Jose Cruz johnson Type: BLOOD SPECIMEN Ordering Facility: [facility] Address: [address] [place] [address] Performed By: #### 2 4323-8, 3040-3, 92719-6, 88465-9, [id number] #### [facility] CLIA [id number] [address] [place] [address] [place] ECG COMPLETEon 10-03-2024 ECG COMPLETE Ventricular Rate : 6 3 BPM Atrial Rate : 63 BPM P-R Interval : 174 ms QRS Duration : 108 ms Q-T Interval : 376 ms QTC Calculation(Bazett) : 384 ms Calculated P [place] : 46 degrees Calculated R [place] : 55 degrees Calculated T [place] : 41 degrees NORMAL SINUS RHYTHM NORMAL ECG NO STEMI Confirmed by MARC DUNLAP DO ([id number]), sound editor VINEET SOMMER ([id number]) on 10/10/2024 10:18:19 AM NAME : SHILO HATHAWAY PID : [id number] : 1950 Gender : Male Race : ORD : [id number] Procedure Date : Oct 03 2024 16:51:03 Edit Date : Oct 10 2024 10:18:21 Diagnosis: NORMAL SINUS RHYTHM NORMAL ECG NO STEMI Confirmed by MARC DUNLAP DO ([id number]), sound editor VINEET SOMMER ([id number]) on 10/10/2024 10:18:19 AM Test Reason : Chest Pain Location : 1 : ER WR Overread By : MARC DUNLAP DO Edited By : VINEET SOMMER Referred By : , Acquired by : armando good [facility] ED NOTEon 10-03-2024 ED NOTE HNO ID: [id number] Author: FRITZ WARREN RN Service: ? Author Type: Registered Nurse Type: ED Notes Filed: 10/03/2024 18:27 Note Text: Report called to RN in ICU [facility] ED PROV NOTEon 10-03-2024 ED PROV NOTE HNO ID: [id number] Author: MARC DUNLAP DO Service: Emergency Medicine Author Type: Physician Type: ED Provider Notes Filed: 10/03/2024 21:29 Note Text: ED Provider Note Patient Name: Shilo Hathaway : 1950 SERVICE DATE: 10/03/24 History Patient presents with: Blood Test Abnormality: high potassium pt has no complaints was having blood work done for upcoming surgery 73-year-old white male that presents to the emergency room for an elevated potassium. He was called by his PCP and told to go directly to the emergency room. The patient states that he had routine lab work done for an upcoming surgery. Patient has no complaints. The patient has a past medical history of CVA, previous VA, hyperlipidemia, hypertension, peripheral vascular disease as well as aortoiliac occlusive disease and he has a bilateral AKA, diabetes. History provided by: Medical records and patient science interpreter used: No PAST MEDICAL HISTORY Diagnosis Date Aortoiliac occlusive disease (HCC) Atherosclerotic heart disease of [place] coronary artery without angina pectoris Carotid artery occlusion Carotid artery stenosis Cerebrovascular accident (CVA) (HCC) Coronary arteriosclerosis VA 1998 Depressive disorder Disc disorder of lumbar region Diverticulitis of colon Diverticulitis of colon Essential tremor Gastroesophageal reflux disease Generalized anxiety disorder Hiatal hernia History of myocardial infarction Hyperlipidemia Hypertension Intervertebral disc disorder of lumbar region with myelopathy Irritable bowel syndrome Myocardial infarction (HCC) Old myocardial infarction Peripheral vascular disease (HCC) PERS HX COLONIC POLYPS Preoperative testing 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 Sleep apnea SOB (shortness of breath) 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) Type 2 diabetes mellitus (HCC) PAST SURGICAL HISTORY Procedure Laterality Date AMPUTATION OF LOWER LEG Left 05/05/2022 Left above knee amputation AMPUTATION OF LOWER LEG Right 09/17/2023 Right above-knee amputation ANGIOPLASTY 1998, 2004, 2013 CAROTID ENDARTERECTOMY Bilateral right 02/2013, left 08/2001 COLONOSCOPY 05/26/2023 COLONOSCOPY FLX DX W/COLLJ SPEC WHEN PFRMD 2000 Colonoscopy with polypectomies COLONOSCOPY SCREENING 07/04/2021 tubular adenomas x5, severe diverticulosis ESOPHAGOGASTRODUODENOSCOPY TRANSORAL DIAGNOSTIC 2000 EGD reportedly normal EXPLORATION GROIN Left 04/29/2018 Left Groin Exploration, Thrombectomy of Left Limb of Axillo-Bifemoral Bypass, Revision of Left Femoral Anastomosis INSERT INTRACORONARY STENT 1998 RCA LAPAROSCOPY SURG CHOLECYSTECTOMY 1997 Cholecystectomy, lap LEFT HEART CATH,PERCUTANEOUS 1998 Cardiac cath, L heart PAST SURGICAL HISTORY OF Carotid stenosis PAST SURGICAL HISTORY OF Bilateral 12/25/2016 Axillo bifem bypass PAST SURGICAL HISTORY OF ureter removal STENT PLACEMENT 1998 BMS RCA STENT PLACEMENT 11/2013 [facility] RCA FAMILY HISTORY Problem Relation Age of Onset Ischemic Heart Disease Father Cancer Father Coronary Artery Disease Father Breast Cancer Mother Social History Tobacco Use Smoking status: Former Current packs/day: 0.00 Types: Cigarettes Quit date: 03/06/1999 Years since quittin.5 Smokeless tobacco: Never Tobacco comments: Start date: 1969; Stop date: 1998 Vaping Use Vaping status: Never Used Substance and Sexual Activity Alcohol use: No Comment: abstinent x 6 yrs Drug use: No Sexual activity: Yes ALLERGIES Allergen Reactions Atorvastatin Myalgia Levofloxacin Unknown Metformin Diarrhea Review of Systems All other systems reviewed and are negative. Physical Exam Vitals BP Pulse Temp Temp src Resp SpO2 Weight Height 10/03/24 1629 10/03/24 1629 10/03/24 1629 10/03/24 1629 10/03/24 1629 10/03/24 1629 10/03/24 1859 10/03/24 1859 (!) 137/43 66 36.7 ?C (98 ?F) Temporal 18 98 % 71.7 kg (158 lb 1.1 oz) 1.143 m (3' 9) Physical Exam Vitals and nursing note reviewed. Constitutional: General: He is awake. He is not in acute distress. Appearance: Normal appearance. He is well-developed, well-groomed and normal weight. He is not ill-appearing, toxic-appearing or diaphoretic. HENT: Head: Normocephalic and atraumatic. Jaw: There is normal jaw occlusion. Right Ear: Hearing, tympanic membrane, ear canal and external ear normal. Left Ear: Hearing, tympanic membrane, ear canal and external ear normal. Nose: Nose normal. Mouth/Throat: Lips: [place]. Mouth: Mucous membranes are moist. Pharynx: Oropharynx is clear. Uvula midline. Eyes: General: Lids are normal. Vision grossly intact. Extraocular Movements: Extraocular movements intact. Conjunctiva/sclera: Conjunctivae normal. Pupils: Pupils are equal, round, and reactive to light. Neck: Trachea: Trachea and phonation normal. Meningeal: Brudzinski's sign and Kernig's sign (more content not included)... Normal [facility] HISTORY PHYSICALon HISTORY PHYSICAL HNO ID: [id number] Author: KENNETH CAMPOS APRN.[employer] COORDINATOR Service: Critical Care Author Type: Nurse Practitioner Type: H&P Filed: 10/03/2024 18:52 Note Text: HISTORY AND PHYSICAL EXAMINATION * SERVICE DATE: 10/03/2024 SERVICE TIME: 628 PRIMARY CARE PHYSICIAN: Paulina Severino MD Subjective CHIEF COMPLAINT: high potassium HPI: 73 M admitted for hyperkalemia. Potassium is 7.2. Hx of CAD, CVA, HTN, HLD, VA, b/l AKA, DM2, PVD. Presented to the ED today for high potassium. He was getting routine blood work done outpatient and it was found that he had a K of 6.1 yesterday. His doctor advised him to go to the ED but he was unable to find a ride. Today, he had report blood work outpatient showing a K of 6.8 so he went to the ED. In the ED, his K was 7.2. Creatinine at baseline of 1.18. BUN 25. Bicarb 20. EKG showing NSR. He denies cp, SOB, abdominal pain, nausea, vomiting, dizziness, palpitations. Reports diarrhea that just started in the ED and sinus pressure. Given insulin/dextrose bolus in ED. Admitted to ICU for elevated K. PAST MEDICAL HISTORY Diagnosis Date Aortoiliac occlusive disease (HCC) Atherosclerotic heart disease of [place] coronary artery without angina pectoris Carotid artery occlusion Carotid artery stenosis Cerebrovascular accident (CVA) (HCC) Coronary arteriosclerosis [place] 1998 Depressive disorder Disc disorder of lumbar region Diverticulitis of colon Diverticulitis of colon Essential tremor Gastroesophageal reflux disease Generalized anxiety disorder Hiatal hernia History of myocardial infarction Hyperlipidemia Hypertension Intervertebral disc disorder of lumbar region with myelopathy Irritable bowel syndrome Myocardial infarction (HCC) Old myocardial infarction Peripheral vascular disease (HCC) PERS HX COLONIC POLYPS Preoperative testing 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 Sleep apnea SOB (shortness of breath) 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) Type 2 diabetes mellitus (HCC) PAST SURGICAL HISTORY Procedure Laterality Date AMPUTATION OF LOWER LEG Left 05/05/2022 Left above knee amputation AMPUTATION OF LOWER LEG Right 09/17/2023 Right above-knee amputation ANGIOPLASTY 1998, 2004, 2014 CAROTID ENDARTERECTOMY Bilateral right 02/2013, left 08/2001 COLONOSCOPY 05/26/2023 COLONOSCOPY FLX DX W/COLLJ SPEC WHEN PFRMD 2000 Colonoscopy with polypectomies COLONOSCOPY SCREENING 07/04/2021 tubular adenomas x5, severe diverticulosis ESOPHAGOGASTRODUODENOSCOPY TRANSORAL DIAGNOSTIC 2000 EGD reportedly normal EXPLORATION GROIN Left 04/29/2018 Left Groin Exploration, Thrombectomy of Left Limb of Axillo-Bifemoral Bypass, Revision of Left Femoral Anastomosis INSERT INTRACORONARY STENT 1998 RCA LAPAROSCOPY SURG CHOLECYSTECTOMY 1997 Cholecystectomy, lap LEFT HEART CATH,PERCUTANEOUS 1998 Cardiac cath, L heart PAST SURGICAL HISTORY OF Carotid stenosis PAST SURGICAL HISTORY OF Bilateral 12/25/2016 Axillo bifem bypass PAST SURGICAL HISTORY OF ureter removal STENT PLACEMENT 1998 BMS RCA STENT PLACEMENT 11/2013 MARVIN RCA Family History Reviewed Including Cardiac Diseases, Psychiatric Diseases, AND Substance Abuse Problem: Ischemic Heart Disease Relation: Father Age of Onset: (Not Specified) Problem: Cancer Relation: Father Age of Onset: (Not Specified) Problem: Coronary Artery Disease Relation: Father Age of Onset: (Not Specified) Problem: Breast Cancer Relation: Mother Age of Onset: (Not Specified) Social History Tobacco Use Smoking status: Former Current packs/day: 0.00 Types: Cigarettes Quit date: 03/06/1999 Years since quittin.5 Smokeless tobacco: Never Tobacco comments: Start date: 1969; Stop date: 1998 Vaping Use Vaping status: Never Used Substance Use Topics Alcohol use: No Comment: abstinent x 6 yrs Drug use: No MEDICATIONS: Prior to Admission Medications (Not in a hospital admission) ALLERGIES Allergen Reactions Atorvastatin Myalgia Levofloxacin Unknown Metformin Diarrhea COMPLETE REVIEW OF SYSTEMS: Review of Systems Constitutional: Negative for fever. All other systems reviewed and are negative. Objective PHYSICAL EXAM: Patient Vitals for the past 24 hrs: BP Temp Temp src Pulse Resp SpO2 10/03/24 1800 139/63 -- -- 66 23 95 % 10/03/24 1734 124/58 -- -- 69 20 96 % 10/03/24 1629 (!) 137/43 36.7 ?C (98 ?F) Temporal 66 18 98 % There is no height or weight on file to calculate BMI. Physical Exam Constitutional: Appearance: Normal appearance. HENT: Mouth/Throat: Mouth: Mucous membranes are moist. Pharynx: Oropharynx is clear. Eyes: General: No scleral icterus. Conjunctiva/sclera: Conjunctivae normal. Cardiovascular: Rate and Rhythm: Normal rate and regular rhythm. Pulmonary: Effort: Pulmonary effort is normal. Breath sounds: Normal breath sounds. Abdominal: General: There is no distension. (more content not included)... Normal [facility] POTASSIUMOrdered By: Zia shetty on 10-03-2024 Interpretation and review of laboratory results Abnormal [facility] Potassium [Moles/Vol] 6.8 mmol/L Critically high 3.7 - 5.1 mmol/L [facility] POTASSIUMon 10-03-2024 Potassium [Moles/Vol] 6.8 mmol/L Critically high 3.7-5.1 [facility] Comment on above: Order Comment: Speci men Type: BLOOD SPECIMENOrdering Facility: [facility] Address: [address] [place] [address] Performed By: #### K 1 ####[facility] LABCLIA [id number] [place] [address] [place] STAPHYLOCOCCUS AUREUS AND MR SA SCREEN, PCR, NASALon 10-03-2024 S. aureus and MRSA panel JUAN F+probe (Nose) Methicillin-SUSCEPTIBLE Staphylococcus aureus Detected Abnormal Not Detected [facility] Comment on above: Order Comment: Speci men Type: SWAB [facility] Address: [address] [place] [address] Performed By: #### S APCR #### [facility] CLIA [id number] [address] [place], [place] [address] [address] [place] CBC panel Auto (Bld)on 10-02 Erythrocyte distribution width (RBC) [Ratio] 12.9 % Normal 11.5-15.0 [facility] Comment on above: Order Comment: Speci men Type: BLOOD SPECIMENOrdering Facility: [facility] Address: [address] [place] [address] Performed By: #### 5 8410-2 ####[facility] LABORATORYCLIA [id number] [address] [place] Hematocrit (Bld) [Volume fraction] 35.2 % Low 39.0-51.0 [facility] Comment on above: Order Comment: Speci men Type: BLOOD SPECIMENOrdering Facility: [facility] Address: [address] [place] [address] Performed By: #### 5 8410-2 ####[facility] LABORATORYCLIA [id number] [place] [address] [place] Hemoglobin (Bld) [Mass/Vol] 11.2 g/dL Low 13.0-17.0 [facility] Comment on above: Order Comment: Speci men Type: BLOOD SPECIMENOrdering Facility: [facility] Address: [address] [place] [address] Performed By: #### 5 8410-2 ####[facility] LABORATORYCLIA [id number] [address] MCH (RBC) [Entitic mass] 30.3 pg Normal 26.0-34.0 [facility] Comment on above: Order Comment: Speci men Type: BLOOD SPECIMENOrdering Facility: [facility] Address: [address] [place] [address] Performed By: #### 5 8410-2 ####[facility] LABORATORYCLIA [id number] [address] MCHC (RBC) [Mass/Vol] 31.8 g/dL Normal 30.5-36.0 [facility] Comment on above: Order Comment: Speci men Type: BLOOD SPECIMENOrdering Facility: [facility] Address: [address] [place] [address] Performed By: #### 5 8410-2 ####[facility] LABORATORYCLIA [id number] [address] MCV (RBC) [Entitic vol] 95.1 fL Normal 80.0-100.0 [facility] Comment on above: Order Comment: Speci men Type: BLOOD SPECIMENOrdering Facility: [facility] Address: [address] [place] [address] Performed By: #### 5 8410-2 ####[facility] LABORATORYCLIA [id number] [address] Nucleated RBC (Bld) [#/Vol] 10*3/uL Normal <0.01 [facility] Comment on above: Order Comment: Speci men Type: BLOOD SPECIMENOrdering Facility: [facility] Address: [address] [place] [address] Performed By: #### 5 8410-2 ####[facility] LABORATORYCLIA [id number] [place] [address] [place] Platelet mean volume (Bld) [Entitic vol] 10.9 fL Normal 9.0-12.7 [facility] Comment on above: Order Comment: Speci men Type: BLOOD SPECIMENOrdering Facility: [facility] Address: [address] [place] [address] Performed By: #### 5 8410-2 ####[facility] LABORATORYCLIA [id number] [place] [address] [place] Platelets (Bld) [#/Vol] 204 10*3/uL Normal 150-400 [facility] Comment on above: Order Comment: Speci men Type: BLOOD SPECIMENOrdering Facility: [facility] Address: [address] [place] [address] Performed By: #### 5 8410-2 ####[facility] LABORATORYCLIA [id number] [address] [place] RBC (Bld) [#/Vol] 3.70 10*6/uL Low 4.20-6.00 [facility] Comment on above: Order Comment: Speci men Type: BLOOD SPECIMENOrdering Facility: [facility] Address: [address] [place] [address] Performed By: #### 5 8410-2 ####[facility] LABORATORYCLIA [id number] [address] [place] WBC (Bld) [#/Vol] 7.70 10*3/uL Normal 3.70-11.00 [facility] Comment on above: Order Comment: Speci men Type: BLOOD SPECIMENOrdering Facility: [facility] Address: [address] [place] [address] Performed By: #### 5 8410-2 ####[facility] LABORATORYCLIA [id number] [address] [place] Comprehensive metabolic 2000 panelon 10-02-2024 Albumin [Mass/Vol] 4.6 g/dL Normal 3.9-4.9 [facility] Comment on above: Order Comment: Speci men Type: BLOOD SPECIMENOrdering Facility: [facility] Address: [address] [place] [address] Performed By: #### 2 4323-8 ####[facility] GENERAL LABORATORYCLIA [id number] [address] [place] ALP [Catalytic activity/Vol] 58 U/L Normal 38-113 [facility] Comment on above: Order Comment: Speci men Type: BLOOD SPECIMENOrdering Facility: [facility] Address: [address] [place] [address] Performed By: #### 2 4323-8 ####[facility] GENERAL LABORATORYCLIA [id number] [place] [address] [place] ALT With P-5'-P [Catalytic activity/Vol] 12 U/L Normal 10-54 [facility] Comment on above: Order Comment: Speci men Type: BLOOD SPECIMENOrdering Facility: [facility] Address: [address] [place] [address] Performed By: #### 2 4323-8 ####[facility] LABORATORYCLIA [id number] [address] [place] Anion gap [Moles/Vol] 12 mmol/L Normal 8-15 [facility] Comment on above: Order Comment: Speci men Type: BLOOD SPECIMENOrdering Facility: [facility] Address: [address] [place] [address] Performed By: #### 2 4323-8 ####[facility] LABORATORYCLIA [id number] [address] [place] AST With P-5'-P [Catalytic activity/Vol] 13 U/L Low 14-40 [facility] Comment on above: Order Comment: Speci men Type: BLOOD SPECIMENOrdering Facility: [facility] Address: [address] [place] [address] Performed By: #### 2 4323-8 ####[facility] LABORATORYCLIA [id number] [address] [place] Bilirubin [Mass/Vol] 0.3 mg/dL Normal 0.2-1.3 [facility] Comment on above: Order Comment: Speci men Type: BLOOD SPECIMENOrdering Facility: [facility] Address: [address] [place] [address] Performed By: #### 2 4323-8 ####[facility] GENERAL LABORATORYCLIA [id number] [place] [address] [place] Calcium [Mass/Vol] 10.0 mg/dL Normal 8.5-10.2 [facility] Comment on above: Order Comment: Speci men Type: BLOOD SPECIMENOrdering Facility: [facility] Address: [address] [place] [address] Performed By: #### 2 4323-8 ####[facility] LABORATORYCLIA [id number] [place] [address] [place] Chloride [Moles/Vol] 103 mmol/L Normal 98-107 [facility] Comment on above: Order Comment: Speci men Type: BLOOD SPECIMENOrdering Facility: [facility] Address: [address] [place] [address] Performed By: #### 2 4323-8 ####[facility] LABORATORYCLIA [id number] [place] [address] [place] CO2 [Moles/Vol] 24 mmol/L Normal 22-30 [facility] Comment on above: Order Comment: Speci men Type: BLOOD SPECIMENOrdering Facility: [facility] Address: [address] [place] [address] Performed By: #### 2 4323-8 ####[facility] LABORATORYCLIA [id number] [place] [address] [place] Creatinine [Mass/Vol] 1.18 mg/dL Normal 0.73-1.22 [facility] Comment on above: Order Comment: Speci men Type: BLOOD SPECIMENOrdering Facility: [facility] Address: [address] [place] [address] Performed By: #### 2 4323-8 ####[facility] GENERAL LABORATORYCLIA [id number] [place] [address] [place] Creatinine and Glomerular filtration rate.predicted panel (S/P/Bld) 66 mL/min/1.73m??? Normal >=60 [facility] Comment on above: Order Comment: Jose Cruz johnson Type: BLOOD SPECIMENOrdering Facility: [facility] Address: [address] [place] [address] Result Comment: Mary Kay mated Glomerular Filtration Rate (eGFR) is calculated using the 2020 CKD-EPI creatinine equation. This equation utilizes serum creatinine, sex, and age as parameters. The creatinine assay has traceable calibration to isotope dilution-mass spectrometry. Refer to KDIGO guidelines for clinical interpretation. In patients with unstable renal function, e.g. those with acute kidney injury, the eGFR may not accurately reflect actual GFR. Performed By: #### 2 4323-8 ####[facility] LABORATORYCLIA [id number] [place] [address] [place] Glucose [Mass/Vol] 85 mg/dL Normal 74-99 [facility] Comment on above: Order Comment: Jose Cruz johnson Type: BLOOD SPECIMENOrdering Facility: [facility] Address: [address] [place] [address] Result Comment: The [place] Diabetes Association (ADA) provides guidance for cutoff values for fasting glucose and random glucose. The ADA defines fasting as no caloric intake for at least 8 hours. Fasting plasma glucose results between 100 to 125 mg/dL indicate increased risk for diabetes (prediabetes).Fasting plasma glucose results greater than or equal to 126 mg/dL meet the criteria for diagnosis of diabetes. In the absence of unequivocal hyperglycemia, results should be confirmed by repeat testing. In a patient with classic symptoms of hyperglycemia or hyperglycemic crisis, random plasma glucose results greater than or equal to 200 mg/dL meet the criteria for diagnosis of diabetes.Reference: Standards of Medical Care in Diabetes 2016, [place] Diabetes Association. Diabetes Care. 2016.39(Suppl 1). Performed By: #### 2 4323-8 ####[facility] LABORATORYCLIA [id number] [place] [address] [place] Potassium [Moles/Vol] 6.1 mmol/L Critically high 3.7-5.1 [facility] Comment on above: Order Comment: Jose Cruz johnson Type: BLOOD SPECIMENOrdering Facility: [facility] Address: [address] [place] [address] Performed By: #### 2 4323-8 ####[facility] LABORATORYCLIA [id number] [place] [address] [place] Protein [Mass/Vol] 7.6 g/dL Normal 6.3-8.0 [facility] Comment on above: Order Comment: Speci men Type: BLOOD SPECIMENOrdering Facility: [facility] Address: [address] [place] [address] Performed By: #### 2 4323-8 ####[facility] LABORATORYCLIA [id number] [place] [address] [place] Sodium [Moles/Vol] 139 mmol/L Normal 136-144 [facility] Comment on above: Order Comment: Speci men Type: BLOOD SPECIMENOrdering Facility: [facility] Address: [address] [place] [address] Performed By: #### 2 4323-8 ####[facility] LABORATORYCLIA [id number] [address] [place] Urea nitrogen [Mass/Vol] 23 mg/dL Normal 9-24 [facility] Comment on above: Order Comment: Speci men Type: BLOOD SPECIMENOrdering Facility: [facility] Address: [address] [place] [address] Performed By: #### 2 4323-8 ####[facility] LABORATORYCLIA [id number] [address] [place] HbA1c (Bld)on 10-02-2024 Average glucose Estimated from glycated hemoglobin (Bld) [Mass/Vol] 174 mg/dL Normal [facility] Comment on above: Order Comment: Speci men Type: BLOOD SPECIMENOrdering Facility: [facility] Address: [address] [place] [address] Result Comment: eAG: (Estimated average glucose) is a calculated value from HgbA1c and is solar manufacturer's representative of the average blood glucose level in the last 2-3 month period. Performed By: #### 5 5454-3 ####[facility] LABCLIA [id number] [address] [place] [address] [place] HbA1c (Bld) [Mass fraction] 7.7 % High 4.3-5.6 [facility] Comment on above: Order Comment: Speci men Type: BLOOD SPECIMENOrdering Facility: [facility] Address: [address] [place] [address] Result Comment: [place] Diabetes Association guidelines indicate that patients with HgbA1c in the range 5.7-6.4% are at increased risk for development of diabetes, and intervention by lifestyle modification may be beneficial. HgbA1c greater or equal to 6.5% is considered diagnostic of diabetes. Performed By: #### 5 5454-3 ####[facility] LABCLIA [id number] [address] [place] CNPNon 09-07-2024 CNPN Normal [facility] CNPNon 08-31-2024 CNPN Normal [facility] CNOVon 08-22-2024 CNOV Normal [facility] CNPNon 08-22-2024 CNPN Normal [facility] CNPNon 08-14-2024 CNPN Normal [facility] CNPNon 08-10-2024 CNPN Normal [facility] CNPNon 07-28-2024 CNPN Normal [facility] CNOVon 07-25-2024 CNOV Normal [facility] CNPNon 07-19-2024 CNPN Normal [facility] ECHOon 07-19-2024 CONCLUSIONS: - Exam indication: CHF - The left ventricle is normal in size. There is mild left ventricular hypertrophy. Left ventricular systolic function is normal. EF = 68 5% (2D biplane) Normal left ventricular diastolic function. - The right ventricle is normal in size. Right ventricular systolic function is normal. - No significant valve disease. - Exam was compared with the prior echocardiographic exam performed on 05/12/2022. LV function markedly improved as compared to report of prior study. * * * Final * * * [facility] Echocardiography Report: Transthoracic Echo [facility] Date of service: 07/19/2024 12:01:53 PM HOSPITAL Ordering physician: EDUIN COLEMAN Indication: CHF Technologist: Opal Blank [facility] Interpreting physician: Jairo De Los Santos MD PATIENT: Name: MR. SHILO HATHAWAY : 1950 Age: 73 years Gender: M History of hypertension, diabetes mellitus and coronary artery disease. Primary rhythm: sinus. Height: 162.60 cm BSA: 1.84 m Weight: 74.84 kg BMI: 28.3 kg/m Heart rate 75 bpm Blood pressure 125/69 mmHg Color Doppler was utilized to interrogate the cardiac valves assessed and spectral Doppler was utilized to determine the flow velocities and pressure gradients reported in this exam. MEASUREMENTS: Value Indexed Normal Max aortic dimension 3.1 cm Ao < 3.8 Left atrium diameter 3.5 cm (2D) LAd < 4 LV ID (diastole) 4.4 cm (2D) 2.41 cm/m LV ID (systole) 2.7 cm (2D) 1.47 cm/m IVS, leaflet tips 1.2 cm (2D) Posterior wall thickness 1.3 cm (2D) Left ventricular mass 202 g (2D) 110 g/m LV stroke volume 44 ml (2D biplane) LV end diastolic volume 64 ml (2D biplane) 34.6 ml/m 34<=EDVi<75 LV end systolic volume 20 ml (2D biplane) 11.0 ml/m Ejection Fraction 68 % (2D biplane) EF > 52 FINDINGS: LEFT VENTRICLE The left ventricle is normal in size. There is mild left ventricular hypertrophy. Left ventricular systolic function is normal. Normal left ventricular diastolic function. Mitral annular lateral E/e': 8.1. Mitral annular septal E/e': 10.5. Wall Motion: All scored segments are normal. RIGHT VENTRICLE The right ventricle is normal in size. Right ventricular systolic function is normal. RV systolic tissue Doppler velocity is 10.6 cm/s. Tricuspid annular displacement is 2.1 cm. Estimated right ventricular systolic pressure is not reported due to an insufficient tricuspid regurgitation signal. Estimated right atrial pressure is 3 mmHg based on IVC assessment. LEFT ATRIUM The left atrial cavity is normal in size. RIGHT ATRIUM The right atrial cavity is normal in size. Inferior Vena Cava: The inferior vena cava appears normal measuring 1.2 cm. The vessel decreases greater than 50 percent with inspiration. MITRAL VALVE The mitral valve leaflets are structurally normal. There is no mitral valve regurgitation. The pressure half time is 58 msec. The peak mitral E/A ratio is 0.72. The mitral flow deceleration time is 201 msec. TRICUSPID VALVE The tricuspid valve leaflets are structurally normal. There is no tricuspid valve regurgitation. AORTIC VALVE There is no aortic valve stenosis. There is no aortic valve regurgitation. Tricuspid aortic valve. There is mild thickening. The LVOT diameter is 2.0 cm. PULMONIC VALVE The pulmonic valve was not seen or not interrogated. There is no pulmonic valve regurgitation. AORTA The visualized aorta is normal in size. Measurements - Sinus: 3.1 cm. Mid ascending aorta 2.6 cm. PULMONARY ARTERIES The pulmonary arteries are unseen or not interrogated. PERICARDIUM There is a trivial pericardial effusion. [facility] CNPNon 07-14-2024 CNPN Normal [facility] CNOVon 07-12-2024 CNOV Normal [facility] CNOVon 07-11-2024 CNOV Normal [facility] CNPNon 07-11-2024 CNPN Normal [facility] CNPNon 07-04-2024 CNPN Normal [facility] CNPNon 06-30-2024 CNPN Normal [facility] CNOVon 06-27-2024 CNOV Normal [facility] HEMOGLOBIN A1C (POC)on 06-27 HbA1c (Bld) [Mass fraction] 10.2 % Abnormal 4.3 - 5.6 % [facility] Comment on above: Location:[facility], [address] [place] [address], [facility] Point of care (POC) Hemoglobin A1c (HGBA1C) testing is intended to assess glucose control and provide a management tool for patients known to have diabetes and their healthcare providers. Target HGBA1C levels may depend on specific clinical circumstances. POC HGBA1C is not intended for use as a diagnostic or screening test; laboratory-based testing should be used for diagnostic purposes. The following information is supplemental and may not be applicable to specific diabetes management situations: The POC device recreation engineer provides a normal range of 4.2% to 6.5% for the HGBA1C POC test. However, the [place] [employer] guidelines indicate that patients with HGBA1C in the range of 5.7% to 6.4% are at increased risk for development of diabetes and that intervention by lifestyle modification may be beneficial. A HGBA1C level greater than or equal to 6.5% is considered diagnostic of diabetes, pending confirmatory testing. Use of HGBA1C testing to evaluate glucose control may not be appropriate for patients with hemoglobin variants or other conditions (e.g. anemia) that alter red blood cell lifespan. Interpretation and review of laboratory results Abnormal [facility] CNPNon 06-07-2024 CNPN Normal [facility] CNPTOUTREACHon 06-07-2024 CNPTOUTREACH Normal [facility] CNOVon 06-06-2024 CNOV Normal [facility] CNPNon 06-06-2024 CNPN Normal [facility] US CAROTID BILon 05-24-2024 US CAROTID ROMI Normal [facility] CNPNon 04-19-2024 CNPN Normal [facility] CNPTOUTREACHon 04-12-2024 CNPTOUTREACH Normal [facility] CNPNon 04-11-2024 CNPN Normal [facility] HEMOGLOBIN A1C (POC)on 03-27 HbA1c (Bld) [Mass fraction] 8.4 % Abnormal 4.3 - 5.6 % [facility] Comment on above: [facility], [address] [place] [address], [facility] Point of care (POC) Hemoglobin A1c (HGBA1C) testing is intended to assess glucose control and provide a management tool for patients known to have diabetes and their healthcare providers. Target HGBA1C levels may depend on specific clinical circumstances. POC HGBA1C is not intended for use as a diagnostic or screening test; laboratory-based testing should be used for diagnostic purposes. The following information is supplemental and may not be applicable to specific diabetes management situations: The POC device recreation engineer provides a normal range of 4.2% to 6.5% for the HGBA1C POC test. However, the [place] [employer] guidelines indicate that patients with HGBA1C in the range of 5.7% to 6.4% are at increased risk for development of diabetes and that intervention by lifestyle modification may be beneficial. A HGBA1C level greater than or equal to 6.5% is considered diagnostic of diabetes, pending confirmatory testing. Use of HGBA1C testing to evaluate glucose control may not be appropriate for patients with hemoglobin variants or other conditions (e.g. anemia) that alter red blood cell lifespan. Interpretation and review of laboratory results Abnormal [facility] HbA1c (Bld)on 07-16-2023 Average glucose Estimated from glycated hemoglobin (Bld) [Mass/Vol] 235 mg/dL [facility] HbA1c (Bld) [Mass fraction] 9.8 % High 4.3 - 5.6 % [facility] Basic metabolic 2000 panelon 05-26-2023 Anion gap [Moles/Vol] 13 mmol/L 9 - 18 mmol/L [facility] Calcium [Mass/Vol] 9.2 mg/dL 8.5 - 10. 2 mg/dL [facility] Chloride [Moles/Vol] 101 mmol/L 97 - 105 mmol/L [facility] CO2 [Moles/Vol] 23 mmol/L 22 - 30 mmol/L [facility] Creatinine [Mass/Vol] 1.01 mg/dL 0.73 - 1.22 mg/dL [facility] Estimated Glomerular Filtration Rate 80 mL/min/1.73m >=60 mL/min/1.73m [facility] Glucose [Mass/Vol] 223 mg/dL High 74 - 99 mg/dL [facility] Potassium [Moles/Vol] 4.7 mmol/L 3.7 - 5.1 mmol/L [facility] Sodium [Moles/Vol] 137 mmol/L 136 - 144 mmol/L [facility] Urea nitrogen [Mass/Vol] 15 mg/dL 9 - 24 mg/dL [facility] COLONOSCOPY DIAGNOSTICon [facility] GLUCOSE, BLOOD (POC)on 05-26 Glucose [Mass/Vol] 201 mg/dL Abnormal 74 - 99 mg/dL [facility] Glucose [Mass/Vol] 224 mg/dL Abnormal 74 - 99 mg/dL [facility] HEMOGLOBIN A1C (POC)on 04-22 HbA1c (Bld) [Mass fraction] 12.0 % Abnormal 4.2 - 5.6 % [facility] NM CARDIAC SPECT SINGLEon [facility] BMP - EXTERNALon 05-26-2022 Anion gap [Moles/Vol] 10 mmol/L [facility] Calcium [Mass/Vol] 9.1 mg/dL 8.8 - 10. 5 MG/DL [facility] Chloride [Moles/Vol] 103 mmol/L 98 - 107 MEQ/L [facility] Creatinine [Mass/Vol] 0.69 mg/dL 0.6 - 1.3 MG/DL [facility] GFR AFR AMER 145 mL/MIN [facility] GFR/1.73 sq M.predicted among non-blacks MDRD (S/P/Bld) [Vol rate/Area] 120 mL/min/{1.73_m2} [facility] Glucose [Mass/Vol] 159 mg/dL Abnormal 74 - 106 MG/DL [facility] HCO3 (Bld) [Moles/Vol] 23.0 mmol/L [facility] Potassium [Moles/Vol] 4.7 mmol/L 3.5 - 5.1 MEQ/L [facility] Sodium [Moles/Vol] 136 mmol/L 136 - 145 MEQ/L [facility] Urea nitrogen [Mass/Vol] 14 mg/dL 6 - 20 mg/dL [facility] CBC panel Auto (Bld)on 05-26 Erythrocyte distribution width (RBC) [Ratio] 13.7 % 11.7 - 15.0 % [facility] Hematocrit (Bld) [Volume fraction] 32.1 % Abnormal 33 - 42 % [facility] Hemoglobin (Bld) [Mass/Vol] 10 g/dL Abnormal 12 - 16 g/dL [facility] MCH 28.2 pG 27 - 34 pG [facility] MCHC 31.2 % Abnormal 32 - 36 % [facility] MCV (RBC) [Entitic vol] 90.7 fL 80 - 100 fL [facility] MPV 10.7 % 7.3 - 11.1 % [facility] Platelets (Bld) [#/Vol] 282 10*3/uL 150 - 400 k/uL [facility] RBC (Bld) [#/Vol] 3.54 10*6/uL Abnormal 4.5 - 6.0 M/uL [facility] RDW-SD 46.1 Abnormal 35.1 - 43.9 [facility] WBC (Bld) [#/Vol] 8.0 10*3/uL 4.0 - 11.0 K/uL [facility] No Panel Informationon 04-23 [facility] MRI LUMBAR SPINE WO IVCONon 04-15-2022 [facility] HEMOGLOBIN A1C (POC)on 12-30 HbA1c (Bld) [Mass fraction] 9.8 % Abnormal 4.2 - 5.6 % [facility] ART PVR LOWER W/ EXERCISE on 10-23-2020 US ART PVR LOWER W/ EXERCISE Final Report DATE OF EXAM: Oct 23 2020 12:00AM A2U [id number] - US ART PVR LOWER W/ EXERCISE / PROCEDURE REASON: s/p bypass Physician Interpretation Non-Invasive Vascular Laboratory [facility] Lower Extremity Arterial Physiology Study Bilateral/Complete Date of service/time: 10/23/2020 9:56:00 AM Name: MR. SHILO HATHAWAY Date of : 1950 Age: 69 years Gender: M Medical History Tobacco: Former Coronary disease: Yes Stroke: Yes Hypertension: Yes Diabetes: Yes Clinical Indication Claudication and pain in leg. TECHNIQUE -------- An arterial physiological examination was performed, including measurement of blood pressures using continuous wave Doppler and recording of plethysmographic with or without Doppler waveforms at the below-mentioned limb segments. FINDINGS -------- RIGHT SIDE AT REST Right Pressures Brachial: 153 mmHg High thigh: 165 mmHg Low thigh: 144 mmHg Calf: 121 mmHg Ankle dorsalis pedis: 106 mmHg МАРИЯ: 0.65 Ankle posterior tibial: 123 mmHg МАРИЯ: 0.76 Digit: 76 mmHg Right PVR Waveforms High thigh: Mildly dampened. Low thigh: Mildly dampened. Calf: Mildly dampened. Ankle: Mildly dampened. Transmetatarsal: Moderately dampened. Digit: Mildly dampened. LEFT SIDE AT REST Left Pressures Brachial: 162 mmHg High thigh: 133 mmHg Low thigh: 109 mmHg Calf: 97 mmHg Ankle dorsalis pedis: 94 mmHg МАРИЯ: 0.58 Ankle posterior tibial: 87 mmHg МАРИЯ: 0.54 Digit: 69 mmHg Left PVR Waveforms High thigh: Mildly dampened. Low thigh: Mildly dampened. Calf: Mildly dampened. Ankle: Mildly dampened. Transmetatarsal: Moderately dampened. Digit: Moderately dampened. POST EXERCISE Treadmill grade: 10.0 rate: 1.5 mph Onset of claudication: 4 min 0 sec Maximal walking time: 5 min 0 sec Exercise symptoms 4 min 0 sec: bilat hip to thigh ache 5 min 0 sec: bilat thigh ache radiating to foot Reason test was terminated: end of protocol. Post Exercise: Immediate Right Pressures and Waveform Brachial: 161 mmHg Ankle: 58 mmHg МАРИЯ: 0.36 Ankle waveform: Severely dampened. Left Pressures and Waveform Brachial: 161 mmHg Ankle: 27 mmHg МАРИЯ: 0.17 Ankle waveform: Severely dampened. Post Exercise: 5 minutes Right Pressures and Waveform Brachial: 162 mmHg Ankle: 74 mmHg МАРИЯ: 0.46 Ankle waveform: Severely dampened. Left Pressures and Waveform Brachial: 162 mmHg Ankle: 42 mmHg МАРИЯ: 0.26 Ankle waveform: Severely dampened. Post Exercise: 7 min Right Pressures and Waveform Brachial: 163 mmHg Ankle: 81 mmHg МАРИЯ: 0.50 Ankle waveform: Moderately dampened. Left Pressures and Waveform Brachial: 163 mmHg Ankle: 61 mmHg МАРИЯ: 0.37 Ankle waveform: Severely dampened. IMPRESSION RIGHT SIDE Resting right ankle brachial index: 0.76 Post exercise right ankle brachial index: 0.36 Right toe brachial index: 0.47 Abnormal ankle brachial index at rest diagnostic of peripheral artery disease. Abnormal toe brachial index at rest is evidence of peripheral artery disease. Right ankle: Mild disease at rest. Right iliofemoral disease. Note drop in pressure and/or ankle-brachial index after exercise. LEFT SIDE Resting left ankle brachial index: 0.58 Post exercise left ankle brachial index: 0.17 Left toe brachial index: 0.43 Abnormal ankle brachial index at rest diagnostic of peripheral artery disease. Abnormal toe brachial index at rest is evidence of peripheral artery disease. Left ankle: Moderate disease at rest. Left iliofemoral disease. Note drop in pressure and/or ankle-brachial index after exercise. Technologist: Cora Good Ordering physician: ELIZABETH BALL Interpreting physician: Anne Villalpando MD Final RP Rippler: SKY Transcribe Date/Time: Oct 23 2020 9:56A Dictated by : ANNE VILLALPANDO MD This examination was interpreted and the report reviewed and electronically signed by: ANNE VILLALPANDO MD on Oct 23 2020 6:09PM EST Normal [place] US CAROTID BILon 09-05-2020 US CAROTID ROMI Final Report DATE OF EXAM: Sep 05 2020 1:20PM U [id number] - US CAROTID ROMI / PROCEDURE REASON: Bilateral carotid artery stenosis Physician Interpretation CAROTID ULTRASOUND 09/05/2020 1:20 PM HISTORY: Bilateral carotid artery stenosis , evaluate for carotid stenosis. COMPARISON: 08/25/2019 TECHNIQUE: Carotid ultrasound performed using grayscale, spectral Doppler and color Doppler. RESULT: [id number] bilateral plaque formation. Right side: Peak ICA systolic velocity (cm/s): 95.8 Peak ICA end diastolic velocity (cm/s): 17 Peak ICA systolic velocity ratio: 0.9 Right side ICA stenosis estimation: 0-29%. Left side: Peak ICA systolic velocity (cm/s): 87.5 Peak ICA end diastolic velocity (cm/s): 21.5 Peak ICA systolic velocity ratio: 0.7 Left side ICA stenosis estimation: 0-29%. Vertebral artery flow is antegrade bilaterally. IMPRESSION: ESTIMATION OF INTERNAL CAROTID ARTERY STENOSIS: 0-29% stenosis within the internal carotid arteries, bilaterally. NASCET criteria used. Rippler: PSCB Transcribe Date/Time: Sep 05 2020 2:19P Dictated by : JULIA CONTI MD This examination was interpreted and the report reviewed and electronically signed by: JULIA CONTI MD on Sep 05 2020 2:21PM EST Normal [facility] Vital Signs Date Time Vital Sign Value Performing Clinician Facility 04-23-2025 03:48-0400 SaO2% (BldA) [Mass fraction] 86 % [facility] Comment on above: Order Comment: Specimen Type: ARTERIAL B LOOD SPECIMENOrdering Facility: [facility] Address: [address] [place] [address] Performed By: #### A LLBG ####[facility] LABORATORYCLIA [id number] [place], [place] [id number] [place] [address] [place] 04-12-2025 06:24-0400 SaO2% (BldA) [Mass fraction] 98 % [facility] Comment on above: Order Comment: Specimen Type: ARTERIAL B LOOD SPECIMENOrdering Facility: [facility] Address: [address] [place] [address] Performed By: #### A LLBG ####[facility] LABORATORYCLIA [id number] [place] [address] [facility] 04-11-2025 07:03-0400 SaO2% (BldA) [Mass fraction] 98 % [facility] Comment on above: Order Comment: Specimen Type: ARTERIAL B LOOD SPECIMENOrdering Facility: [facility] Address: [address] [place] [address] Performed By: #### A LLBG ####[facility] LABORATORYCLIA [id number] [place] [address] [facility] [place] 04-10-2025 05:09-0400 SaO2% (BldA) [Mass fraction] 99 % [facility] Comment on above: Order Comment: Specimen Type: ARTERIAL B LOOD SPECIMENOrdering Facility: [facility] Address: [address] [place] [address] Performed By: #### A LLBG ####[facility] LABORATORYCLIA [id number] [place] [address] [facility] 04-09-2025 22:02-0400 SaO2% (BldA) [Mass fraction] 88 % [facility] Comment on above: Order Comment: Specimen Type: ARTERIAL B LOOD SPECIMENOrdering Facility: [facility] Address: [address] [place] [address] Performed By: #### A LLBG ####[facility] LABORATORYCLIA [id number] [place] [address] [facility] 04-08-2025 00:26-0400 SaO2% (BldA) [Mass fraction] 90 % [facility] Comment on above: Order Comment: Specimen Type: ARTERIAL B LOOD SPECIMENOrdering Facility: [facility] Address: [address] [place] [address] Performed By: #### A LLBG ####[facility] LABORATORYCLIA [id number] [place] [address] [facility] 04-06-2025 18:31-0400 SaO2% (BldA) [Mass fraction] 91 % [facility] Comment on above: Order Comment: Specimen Type: ARTERIAL B LOOD SPECIMENOrdering Facility: [facility] Address: [address] [place], [place] [id number] Performed By: #### A LLBG ####[facility] LABORATORYCLIA [id number] [place] [address] [facility] 04-06-2025 10:36-0400 SaO2% (BldA) [Mass fraction] 86 % [facility] Comment on above: Order Comment: Specimen Type: ARTERIAL B LOOD SPECIMENOrdering Facility: [facility] Address: [address] [place] [address] Performed By: #### A LLBG ####[facility] LABORATORYCLIA [id number] [place] [address] [facility] 04-06-2025 02:03-0400 SaO2% (BldA) [Mass fraction] 87 % [facility] Comment on above: Order Comment: Specimen Type: ARTERIAL B LOOD SPECIMENOrdering Facility: [facility] Address: [address] [place] [address] Performed By: #### A LLBG ####[facility] LABORATORYCLIA [id number] [place] [address] [facility] 03-29-2025 10:16-0400 Body height 114.3 cm Pst 1 [facility] 03-29-2025 10:16-0400 Body mass index (BMI) [Ratio] 54.51 kg/m2 Pst 1 [facility] 03-29-2025 10:16-0400 Body temperature 98.2 [degF] Pst 1 [facility] 03-29-2025 10:16-0400 Body weight 71.22 kg Pst 1 [facility] Comment on above: 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 Se lf reported weight 03-29-2025 10:16-0400 Diastolic blood pressure 68 mm[Hg] Pst 1 [facility] 03-29-2025 10:16-0400 Heart rate 84 /min Pst 1 [facility] 07-10-2025 10:16-0400 Respiratory rate 16 /min Pst 1 [facility] 03-29-2025 10:16-0400 SaO2% (BldA) [Mass fraction] 96 % Pst 1 [facility] 03-29-2025 10:16-0400 Systolic blood pressure 146 mm[Hg] Pst 1 [facility] 03-20-2025 10:46-0400 Body height 114.3 cm Thierry Rush MD Work Phone: [facility] 03-20-2025 10:46-0400 Body mass index (BMI) [Ratio] 54.51 kg/m2 Thierry Rush MD Work Phone: [facility] 03-20-2025 10:46-0400 Body weight 71.22 kg Thierry Rush MD Work Phone: [facility] 03-05-2025 13:26-0400 Diastolic blood pressure 69 mm[Hg] Lyubov Hernandez APRN.PARK ACTIVITIES COORDINATOR Work Phone: [facility] 03-05-2025 13:26-0400 Heart rate 78 /min Lyubov Hernandez APRN.PARK ACTIVITIES COORDINATOR Work Phone: [facility] 03-05-2025 13:26-0400 Systolic blood pressure 134 mm[Hg] Lyubov Hernandez HEALTH INFORMATION ASSISTANT.PARK ACTIVITIES COORDINATOR Work Phone: [facility] 02-28-2025 15:27-0400 Diastolic blood pressure 62 mm[Hg] Eduin Coleman APRN.PARK ACTIVITIES COORDINATOR Work Phone: [facility] 02-28-2025 15:27-0400 Systolic blood pressure 142 mm[Hg] Eduni krueger APRN.PARK ACTIVITIES COORDINATOR Work Phone: [facility] 02-28-2025 15:07-0400 Body mass index (BMI) [Ratio] 54.51 kg/m2 Eduin Coleman APRN.PARK ACTIVITIES COORDINATOR Work Phone: [facility] 02-28-2025 15:07-0400 Body weight 71.22 kg Eduin Coleman APRN.PARK ACTIVITIES COORDINATOR Work Phone: [facility] 02-28-2025 15:07-0400 Heart rate 77 /min Eduin Coleman APRN.CNP Work Phone: [facility] 02-28-2025 15:07-0400 SaO2% (BldA) [Mass fraction] 95 % Eduin Coleman APRN.PARK ACTIVITIES COORDINATOR Work Phone: [facility] 01-29-2025 10:30-0400 Diastolic blood pressure 60 mm[Hg] Paulina Severino MD Work Phone: [facility] 01-29-2025 10:30-0400 Systolic blood pressure 158 mm[Hg] Paulina Quintanilla Work Phone: [facility] 01-29-2025 10:08-0400 Heart rate 75 /min Paulina Severino MD Work Phone: [facility] 11-23-2024 13:36-0500 Body height 163.8 cm Davin Moran MD Work Phone: [facility] 11-23-2024 13:36-0500 Body mass index (BMI) [Ratio] 26.7 kg/m2 Davin Moran MD Work Phone: [facility] 11-23-2024 13:36-0500 Body weight 71.67 kg Davin Moran MD Work Phone: [facility] 11-23-2024 13:36-0500 Diastolic blood pressure 63 mm[Hg] Davin Moran MD Work Phone: [facility] 11-23-2024 13:36-0500 Heart rate 71 /min Davin Moran MD Work Phone: [facility] 11-23-2024 13:36-0500 Respiratory rate 16 /min Davin Moran MD Work Phone: [facility] 11-23-2024 13:36-0500 SaO2% (BldA) [Mass fraction] 94 % Davin Moran MD Work Phone: [facility] 11-23-2024 13:36-0500 Systolic blood pressure 149 mm[Hg] Davin Moran MD Work Phone: [facility] 11-08-2024 15:10-0500 Diastolic blood pressure 54 mm[Hg] Lyubov Mary HEALTH INFORMATION ASSISTANT.PARK ACTIVITIES COORDINATOR Work Phone: [facility] Comment on above: manual 11-08-2024 15:10-0500 Systolic blood pressure 144 mm[Hg] Lyubov Mary HEALTH INFORMATION ASSISTANT.PARK ACTIVITIES COORDINATOR Work Phone: [facility] Comment on above: manual 11-08-2024 14:35-0500 Heart rate 110 /min Lyubov Mary HEALTH INFORMATION ASSISTANT.PARK ACTIVITIES COORDINATOR Work Phone: [facility] 11-08-2024 14:35-0500 SaO2% (BldA) [Mass fraction] 95 % Lyubov Mary HEALTH INFORMATION ASSISTANT.PARK ACTIVITIES COORDINATOR Work Phone: [facility] 10-09-2024 13:39-0500 Diastolic blood pressure 58 mm[Hg] Lyubov Mary HEALTH INFORMATION ASSISTANT.PARK ACTIVITIES COORDINATOR Work Phone: [facility] Comment on above: manual 10-09-2024 13:39-0500 Systolic blood pressure 148 mm[Hg] Lyubov Mary HEALTH INFORMATION ASSISTANT.PARK ACTIVITIES COORDINATOR Work Phone: [facility] Comment on above: manual 10-09-2024 13:16-0500 Body height 114.3 cm Lyubov Mary HEALTH INFORMATION ASSISTANT.PARK ACTIVITIES COORDINATOR Work Phone: [facility] 10-09-2024 13:16-0500 Body mass index (BMI) [Ratio] 55.55 kg/m2 Lyubov Addisonmel HEALTH INFORMATION ASSISTANT.PARK ACTIVITIES COORDINATOR Work Phone: [facility] 10-09-2024 13:16-0500 Body temperature 96.8 [degF] Lyubov Mary HEALTH INFORMATION ASSISTANT.PARK ACTIVITIES COORDINATOR Work Phone: [facility] 10-09-2024 13:16-0500 Body weight 72.58 kg Lyubov Mary HEALTH INFORMATION ASSISTANT.PARK ACTIVITIES COORDINATOR Work Phone: [facility] 10-09-2024 13:16-0500 Heart rate 59 /min Lyubov Mary HEALTH INFORMATION ASSISTANT.PARK ACTIVITIES COORDINATOR Work Phone: [facility] 10-09-2024 13:16-0500 Respiratory rate 16 /min Lyubov Mary HEALTH INFORMATION ASSISTANT.PARK ACTIVITIES COORDINATOR Work Phone: [facility] 10-09-2024 13:16-0500 SaO2% (BldA) [Mass fraction] 95 % Lyubov Mary HEALTH INFORMATION ASSISTANT.PARK ACTIVITIES COORDINATOR Work Phone: [facility] 08-22-2024 10:54-0500 Diastolic blood pressure 63 mm[Hg] Lyubov Mary HEALTH INFORMATION ASSISTANT.PARK ACTIVITIES COORDINATOR Work Phone: [facility] 08-22-2024 10:54-0500 Heart rate 63 /min Lyubov Mary HEALTH INFORMATION ASSISTANT.PARK ACTIVITIES COORDINATOR Work Phone: [facility] 08-22-2024 10:54-0500 SaO2% (BldA) [Mass fraction] 97 % Lyubov Mary HEALTH INFORMATION ASSISTANT.PARK ACTIVITIES COORDINATOR Work Phone: [facility] 08-22-2024 10:54-0500 Systolic blood pressure 146 mm[Hg] Lyubov Mary HEALTH INFORMATION ASSISTANT.PARK ACTIVITIES COORDINATOR Work Phone: [facility] 07-25-2024 13:39-0500 Diastolic blood pressure 67 mm[Hg] Lyubov Mary HEALTH INFORMATION ASSISTANT.PARK ACTIVITIES COORDINATOR Work Phone: [facility] 07-25-2024 13:39-0500 Heart rate 72 /min Lyubov Mary HEALTH INFORMATION ASSISTANT.PARK ACTIVITIES COORDINATOR Work Phone: [facility] 07-25-2024 13:39-0500 SaO2% (BldA) [Mass fraction] 96 % Lyubov Mary HEALTH INFORMATION ASSISTANT.PARK ACTIVITIES COORDINATOR Work Phone: [facility] 07-25-2024 13:39-0500 Systolic blood pressure 130 mm[Hg] Lyubov Mary HEALTH INFORMATION ASSISTANT.PARK ACTIVITIES COORDINATOR Work Phone: [facility] 07-12-2024 13:49-0400 Body mass index (BMI) [Ratio] 28.32 kg/m2 Eduin Coleman APRN.PARK ACTIVITIES COORDINATOR Work Phone: [facility] 07-12-2024 13:49-0400 Body weight 74.84 kg Eduin Coleman APRN.PARK ACTIVITIES COORDINATOR Work Phone: [facility] Comment on above: in wheelchair 07-12-2024 13:49-0400 Diastolic blood pressure 69 mm[Hg] Eduin Coleman HEALTH INFORMATION ASSISTANT.PARK ACTIVITIES COORDINATOR Work Phone: [facility] 07-12-2024 13:49-0400 Heart rate 62 /min Eduin Coleman HEALTH INFORMATION ASSISTANT.PARK ACTIVITIES COORDINATOR Work Phone: [facility] 07-12-2024 13:49-0400 Respiratory rate 16 /min Eduin Coleman HEALTH INFORMATION ASSISTANT.PARK ACTIVITIES COORDINATOR Work Phone: [facility] 07-12-2024 13:49-0400 SaO2% (BldA) [Mass fraction] 96 % Eduin Coleman HEALTH INFORMATION ASSISTANT.PARK ACTIVITIES COORDINATOR Work Phone: [facility] 07-12-2024 13:49-0400 Systolic blood pressure 125 mm[Hg] Eduin krueger HEALTH INFORMATION ASSISTANT.PARK ACTIVITIES COORDINATOR Work Phone: [facility] 06-27-2024 13:43-0400 Diastolic blood pressure 65 mm[Hg] Lyubov Hernandez HEALTH INFORMATION ASSISTANT.PARK ACTIVITIES COORDINATOR Work Phone: [facility] 06-27-2024 13:43-0400 Heart rate 68 /min Lyubov Hernandez HEALTH INFORMATION ASSISTANT.PARK ACTIVITIES COORDINATOR Work Phone: [facility] 06-27-2024 13:43-0400 Systolic blood pressure 124 mm[Hg] Lyubov Hernandez HEALTH INFORMATION ASSISTANT.PARK ACTIVITIES COORDINATOR Work Phone: [facility] 06-06-2024 13:03-0400 Diastolic blood pressure 60 mm[Hg] Elizabeth Ball HEALTH INFORMATION ASSISTANT.PARK ACTIVITIES COORDINATOR Work Phone: [facility] 06-06-2024 13:03-0400 Heart rate 82 /min Elizabeth Ball HEALTH INFORMATION ASSISTANT.PARK ACTIVITIES COORDINATOR Work Phone: [facility] 06-06-2024 13:03-0400 SaO2% (BldA) [Mass fraction] 96 % Elizabeth Ball HEALTH INFORMATION ASSISTANT.PARK ACTIVITIES COORDINATOR Work Phone: [facility] 06-06-2024 13:03-0400 Systolic blood pressure 142 mm[Hg] Elizabeth Ball HEALTH INFORMATION ASSISTANT.PARK ACTIVITIES COORDINATOR Work Phone: [facility] 03-27-2024 13:25-0400 Diastolic blood pressure 78 mm[Hg] Lyubov Prado HEALTH INFORMATION ASSISTANT.PARK ACTIVITIES COORDINATOR Work Phone: [facility] 03-27-2024 13:25-0400 Heart rate 65 /min Lyubov Prado HEALTH INFORMATION ASSISTANT.PARK ACTIVITIES COORDINATOR Work Phone: [facility] 03-27-2024 13:25-0400 Systolic blood pressure 134 mm[Hg] Lyubov Prado HEALTH INFORMATION ASSISTANT.PARK ACTIVITIES COORDINATOR Work Phone: [facility] 11-30-2023 10:17-0400 Diastolic blood pressure 60 mm[Hg] Elizabeth Ball HEALTH INFORMATION ASSISTANT.PARK ACTIVITIES COORDINATOR Work Phone: [facility] 11-30-2023 10:17-0400 Heart rate 70 /min Elizabeth Ball APRN.PARK ACTIVITIES COORDINATOR Work Phone: [facility] 11-30-2023 10:17-0400 SaO2% (BldA) [Mass fraction] 97 % Elizabeth Ball APRN.PARK ACTIVITIES COORDINATOR Work Phone: [facility] 11-30-2023 10:17-0400 Systolic blood pressure 150 mm[Hg] Elizabeth Ball APRN.PARK ACTIVITIES COORDINATOR Work Phone: [facility] 11-09-2023 09:50-0500 Body weight 68.04 kg Elizabeth Ball APRN.PARK ACTIVITIES COORDINATOR Work Phone: [facility] 11-09-2023 09:50-0500 Diastolic blood pressure 70 mm[Hg] Elizabeth Ball APRN.PARK ACTIVITIES COORDINATOR Work Phone: [facility] 11-09-2023 09:50-0500 Heart rate 75 /min Elizabeth Ball APRN.PARK ACTIVITIES COORDINATOR Work Phone: [facility] 11-09-2023 09:50-0500 SaO2% (BldA) [Mass fraction] 98 % Elizabeth Ball APRN.PARK ACTIVITIES COORDINATOR Work Phone: [facility] 11-09-2023 09:50-0500 Systolic blood pressure 160 mm[Hg] Elizabeth Ball APRN.PARK ACTIVITIES COORDINATOR Work Phone: [facility] 10-20-2023 14:24-0500 Diastolic blood pressure 66 mm[Hg] Paulina Severino MD Work Phone: [facility] 10-20-2023 14:24-0500 Heart rate 92 /min Paulina Severino MD Work Phone: [facility] 10-20-2023 14:24-0500 SaO2% (BldA) [Mass fraction] 97 % Paulina Severino MD Work Phone: [facility] 10-20-2023 14:24-0500 Systolic blood pressure 140 mm[Hg] Paulina Quintanilla Work Phone: [facility] 08-18-2023 08:31-0500 Body temperature 96.01 [degF] [facility] 08-18-2023 08:31-0500 Diastolic blood pressure 62 mm[Hg] [facility] 08-18-2023 08:31-0500 Heart rate 119 /min [facility] 08-18-2023 08:31-0500 Respiratory rate 16 /min [facility] 08-18-2023 08:31-0500 Systolic blood pressure 156 mm[Hg] [facility] 08-10-2023 16:21-0500 Body height 162.6 cm Anne Villalpando MD Work Phone: [facility] 08-10-2023 16:21-0500 Diastolic blood pressure 60 mm[Hg] Anne Villalpando MD Work Phone: [facility] 08-10-2023 16:21-0500 Heart rate 119 /min Anne Villalpando MD Work Phone: [facility] 08-10-2023 16:21-0500 SaO2% (BldA) [Mass fraction] 97 % Anne Villalpnado MD Work Phone: [facility] 08-10-2023 16:21-0500 Systolic blood pressure 148 mm[Hg] Anne Villalpadno MD Work Phone: [facility] 08-04-2023 08:53-0500 Body temperature 96.3 [degF] [facility] 08-04-2023 08:53-0500 Diastolic blood pressure 66 mm[Hg] [facility] 08-04-2023 08:53-0500 Heart rate 102 /min [facility] 08-04-2023 08:53-0500 Respiratory rate 18 /min [facility] 08-04-2023 08:53-0500 Systolic blood pressure 177 mm[Hg] [facility] 07-28-2023 09:58-0500 Body temperature 96.6 [degF] [facility] 07-28-2023 09:58-0500 Diastolic blood pressure 65 mm[Hg] [facility] 07-28-2023 09:58-0500 Heart rate 102 /min [facility] 07-28-2023 09:58-0500 Respiratory rate 16 /min [facility] 07-28-2023 09:58-0500 Systolic blood pressure 128 mm[Hg] [facility] 07-21-2023 10:05-0400 Diastolic blood pressure 60 mm[Hg] Pamela Hills MD Work Phone: [facility] 07-21-2023 10:05-0400 Heart rate 114 /min Pamela Hills MD Work Phone: [facility] 07-21-2023 10:05-0400 Respiratory rate 16 /min Pamela Hills MD Work Phone: [facility] 07-21-2023 10:05-0400 SaO2% (BldA) [Mass fraction] 93 % Pamela Hills MD Work Phone: [facility] 07-21-2023 10:05-0400 Systolic blood pressure 148 mm[Hg] Pamela Hills MD Work Phone: [facility] 07-19-2023 15:47-0400 Body height 162.6 cm Paulina Severino MD Work Phone: [facility] 07-19-2023 15:47-0400 Body temperature 98.01 [degF] Paulina Severino MD Work Phone: [facility] 07-19-2023 15:47-0400 Body weight 67.13 kg Paulina Severino MD Work Phone: [facility] 07-19-2023 15:47-0400 Diastolic blood pressure 76 mm[Hg] Paulina Severino MD Work Phone: [facility] 07-19-2023 15:47-0400 Heart rate 118 /min Paulina Severino MD Work Phone: [facility] 07-19-2023 15:47-0400 SaO2% (BldA) [Mass fraction] 98 % Paulina Severino MD Work Phone: [facility] 07-19-2023 15:47-0400 Systolic blood pressure 161 mm[Hg] Paulina Quintanilla Work Phone: [facility] 07-16-2023 09:48-0400 Body height 162.6 cm [facility] 07-16-2023 09:48-0400 Body temperature 97.9 [degF] [facility] 07-16-2023 09:48-0400 Body weight 72.58 kg [facility] 07-16-2023 09:48-0400 Diastolic blood pressure 78 mm[Hg] [facility] 07-16-2023 09:48-0400 Heart rate 110 /min [facility] 07-16-2023 09:48-0400 Respiratory rate 18 /min [facility] 07-16-2023 09:48-0400 Systolic blood pressure 156 mm[Hg] [facility] 07-13-2023 11:14-0400 Body height 162.6 cm Anne Villalpando MD Work Phone: [facility] 07-13-2023 11:14-0400 Body weight 71.67 kg Anne Villalpando MD Work Phone: [facility] 07-13-2023 11:14-0400 Diastolic blood pressure 68 mm[Hg] Anne Villalpando MD Work Phone: [facility] 07-13-2023 11:14-0400 Heart rate 92 /min Anne Villalpando MD Work Phone: [facility] 07-13-2023 11:14-0400 Respiratory rate 18 /min Anne Villalpando MD Work Phone: [facility] 07-13-2023 11:14-0400 Systolic blood pressure 140 mm[Hg] Anne Villalpando MD Work Phone: [facility] 06-29-2023 16:01-0400 Body height 162.6 cm Elizabeth Ball HEALTH INFORMATION ASSISTANT.PARK ACTIVITIES COORDINATOR Work Phone: [facility] 06-29-2023 16:01-0400 Body weight 72.58 kg Elizabeth Ball HEALTH INFORMATION ASSISTANT.PARK ACTIVITIES COORDINATOR Work Phone: [facility] 06-29-2023 16:01-0400 Diastolic blood pressure 70 mm[Hg] Elizabeth Ball HEALTH INFORMATION ASSISTANT.PARK ACTIVITIES COORDINATOR Work Phone: [facility] 06-29-2023 16:01-0400 Heart rate 88 /min Elizabeth Ball HEALTH INFORMATION ASSISTANT.PARK ACTIVITIES COORDINATOR Work Phone: [facility] 06-29-2023 16:01-0400 Respiratory rate 16 /min Elizabeth Ball HEALTH INFORMATION ASSISTANT.PARK ACTIVITIES COORDINATOR Work Phone: [facility] 06-29-2023 16:01-0400 Systolic blood pressure 140 mm[Hg] Elizabeth Ball HEALTH INFORMATION ASSISTANT.PARK ACTIVITIES COORDINATOR Work Phone: [facility] 06-09-2023 13:18-0400 Body height 162.6 cm Davin August PA-C Work Phone: [facility] 06-09-2023 13:18-0400 Body weight 72.12 kg Davin August PA-C Work Phone: [facility] 06-09-2023 13:18-0400 Diastolic blood pressure 53 mm[Hg] Davin August PA-C Work Phone: [facility] 06-09-2023 13:18-0400 Heart rate 101 /min Davin August PA-C Work Phone: [facility] 06-09-2023 13:18-0400 SaO2% (BldA) [Mass fraction] 99 % Davin TAYLOR-Linus Work Phone: [facility] 06-09-2023 13:18-0400 Systolic blood pressure 170 mm[Hg] Davin Pulliam A-C Work Phone: [facility] 05-26-2023 10:45-0400 Diastolic blood pressure 69 mm[Hg] Roseline Pearson MD Work Phone: [facility] 05-26-2023 10:45-0400 Heart rate 80 /min Roseline Pearson MD Work Phone: [facility] 05-26-2023 10:45-0400 Respiratory rate 17 /min Roseline Pearson MD Work Phone: [facility] 05-26-2023 10:45-0400 SaO2% (BldA) [Mass fraction] 96 % Roseline Pearson MD Work Phone: [facility] 05-26-2023 10:45-0400 Systolic blood pressure 169 mm[Hg] Roseline Pearson MD Work Phone: [facility] 05-26-2023 10:28-0400 Body temperature 97.5 [degF] Roseline Pearson MD Work Phone: [facility] 05-26-2023 09:10-0400 Body height 162.6 cm Roseline Pearson MD Work Phone: [facility] 05-26-2023 09:10-0400 Body weight 72.12 kg Roseline Pearson MD Work Phone: [facility] 04-22-2023 12:59-0400 Body height 162.6 cm Paulina Severino MD Work Phone: [facility] 04-22-2023 12:59-0400 Body temperature 98.91 [degF] Paulina Severino MD Work Phone: [facility] 04-22-2023 12:59-0400 Body weight 72.12 kg Paulina Severino MD Work Phone: [facility] 04-22-2023 12:59-0400 Diastolic blood pressure 60 mm[Hg] Paulina Severino MD Work Phone: [facility] 04-22-2023 12:59-0400 Heart rate 89 /min Paulina Severino MD Work Phone: [facility] 04-22-2023 12:59-0400 SaO2% (BldA) [Mass fraction] 96 % Paulina Severino MD Work Phone: [facility] 04-22-2023 12:59-0400 Systolic blood pressure 139 mm[Hg] Paulina Quintanilla Work Phone: [facility] 02-24-2023 10:40-0400 Diastolic blood pressure 76 mm[Hg] Paulina Severino MD Work Phone: [facility] 02-24-2023 10:40-0400 Heart rate 64 /min Paulina Severino MD Work Phone: [facility] 02-24-2023 10:40-0400 Respiratory rate 18 /min Paulina Severino MD Work Phone: [facility] 02-24-2023 10:40-0400 SaO2% (BldA) [Mass fraction] 98 % Paulina Severino MD Work Phone: [facility] 02-24-2023 10:40-0400 Systolic blood pressure 163 mm[Hg] Paulina Quintanilla Work Phone: [facility] 01-25-2023 14:00-0400 Body height 162.6 cm Jessica Jorge PA-C Work Phone: [facility] 01-25-2023 14:00-0400 Body weight 72.58 kg Jessica Jorge PA-C Work Phone: [facility] 01-25-2023 14:00-0400 Diastolic blood pressure 66 mm[Hg] Jessica Jorge PA-C Work Phone: [facility] 01-25-2023 14:00-0400 Heart rate 60 /min Jessica Jorge PA-C Work Phone: [facility] 01-25-2023 14:00-0400 Systolic blood pressure 146 mm[Hg] Jessica Jorge PA-C Work Phone: [facility] 12-15-2022 15:24-0400 Diastolic blood pressure 60 mm[Hg] Anne Villalpando MD Work Phone: [facility] 12-15-2022 15:24-0400 Heart rate 74 /min Anne Villalpando MD Work Phone: [facility] 12-15-2022 15:24-0400 SaO2% (BldA) [Mass fraction] 95 % Anne Villalpando MD Work Phone: [facility] 12-15-2022 15:24-0400 Systolic blood pressure 102 mm[Hg] Anne Villalpando MD Work Phone: [facility] 08-06-2022 11:29-0500 Body height 162.6 cm Paulina Severino MD Work Phone: [facility] 08-06-2022 11:29-0500 Body weight 69.4 kg Paulina Severino MD Work Phone: [facility] 08-06-2022 11:29-0500 Diastolic blood pressure 44 mm[Hg] Paulina Severino MD Work Phone: [facility] 08-06-2022 11:29-0500 Heart rate 71 /min Paulina Severino MD Work Phone: [facility] 08-06-2022 11:29-0500 SaO2% (BldA) [Mass fraction] 99 % Paulina Severino MD Work Phone: [facility] 08-06-2022 11:29-0500 Systolic blood pressure 127 mm[Hg] Paulina Quintanilla Work Phone: [facility] 07-10-2022 10:32-0400 Diastolic blood pressure 43 mm[Hg] Paulina Severino MD Work Phone: [facility] 07-10-2022 10:32-0400 Heart rate 74 /min Paulina Severino MD Work Phone: [facility] 07-10-2022 10:32-0400 Systolic blood pressure 119 mm[Hg] Paulina Quintanilla Work Phone: [facility] 06-17-2022 11:37-0400 Body height 162.7 cm Elizabeth Ball HEALTH INFORMATION ASSISTANT.PARK ACTIVITIES COORDINATOR Work Phone: [facility] 06-17-2022 11:37-0400 Diastolic blood pressure 74 mm[Hg] Elizabeth Ball HEALTH INFORMATION ASSISTANT.PARK ACTIVITIES COORDINATOR Work Phone: [facility] 06-17-2022 11:37-0400 Heart rate 72 /min Elizabeth Ball HEALTH INFORMATION ASSISTANT.PARK ACTIVITIES COORDINATOR Work Phone: [facility] 06-17-2022 11:37-0400 SaO2% (BldA) [Mass fraction] 99 % Elizabeth Ball HEALTH INFORMATION ASSISTANT.PARK ACTIVITIES COORDINATOR Work Phone: [facility] 06-17-2022 11:37-0400 Systolic blood pressure 140 mm[Hg] Elizabeth Ball HEALTH INFORMATION ASSISTANT.PARK ACTIVITIES COORDINATOR Work Phone: [facility] 04-14-2022 14:42-0400 Heart rate 76 /min Malgorzata Kirkpatrick MD Work Phone: [facility] 04-14-2022 14:42-0400 Respiratory rate 14 /min Malgorzata Kirkpatrick MD Work Phone: [facility] 04-14-2022 14:42-0400 SaO2% (BldA) [Mass fraction] 98 % Malgorzata Kirkpatrick MD Work Phone: [facility] 03-30-2022 15:12-0400 Body height 163.8 cm Landen Milner PA-C Work Phone: [facility] 03-30-2022 15:12-0400 Body weight 78.93 kg Landen Milner PA-C Work Phone: [facility] 03-30-2022 15:12-0400 Diastolic blood pressure 62 mm[Hg] Landen Lomelion PA-C Work Phone: [facility] 03-30-2022 15:12-0400 Heart rate 73 /min Landen Milner PA-C Work Phone: [facility] 03-30-2022 15:12-0400 Respiratory rate 18 /min Landen Milner PA-C Work Phone: [facility] 03-30-2022 15:12-0400 SaO2% (BldA) [Mass fraction] 98 % Landen Milner PA-C Work Phone: [facility] 03-30-2022 15:12-0400 Systolic blood pressure 184 mm[Hg] Landen Burnett n PA-C Work Phone: [facility] 03-27-2022 15:14-0400 Body height 163.8 cm Paulina Severino MD Work Phone: [facility] 03-27-2022 15:14-0400 Body weight 78.93 kg Paulina Severino MD Work Phone: [facility] 03-27-2022 15:14-0400 Diastolic blood pressure 45 mm[Hg] Paulina Severino MD Work Phone: [facility] 03-27-2022 15:14-0400 Heart rate 72 /min Paulina Severino MD Work Phone: [facility] 03-27-2022 15:14-0400 Systolic blood pressure 167 mm[Hg] Paulina Quintanilla Work Phone: [facility] 03-13-2022 11:06-0400 Body height 163.8 cm Paulina Severino MD Work Phone: [facility] 03-13-2022 11:06-0400 Body weight 79.11 kg Paulina Severino MD Work Phone: [facility] 03-13-2022 11:06-0400 Diastolic blood pressure 56 mm[Hg] Paulina Severino MD Work Phone: [facility] 03-13-2022 11:06-0400 Heart rate 102 /min Paulina Severino MD Work Phone: [facility] 03-13-2022 11:06-0400 Systolic blood pressure 155 mm[Hg] Paulina Quintanilla Work Phone: [facility] 01-01-2022 10:44-0400 Body height 163.8 cm Davin BUTLERC Work Phone: [facility] 01-01-2022 10:44-0400 Body weight 85.46 kg Davin BUTLERC Work Phone: [facility] 01-01-2022 10:44-0400 Diastolic blood pressure 47 mm[Hg] Davin BUTLERC Work Phone: [facility] 01-01-2022 10:44-0400 Heart rate 65 /min Davin BUTLERC Work Phone: [facility] 01-01-2022 10:44-0400 SaO2% (BldA) [Mass fraction] 100 % Davin BUTLERC Work Phone: [facility] 01-01-2022 10:44-0400 Systolic blood pressure 153 mm[Hg] Davin Pulliam A-C Work Phone: [facility] 12-30-2021 14:02-0400 Diastolic blood pressure 60 mm[Hg] [facility] HEALTH INFORMATION ASSISTANT.PARK ACTIVITIES COORDINATOR Work Phone: [facility] 12-30-2021 14:02-0400 Systolic blood pressure 110 mm[Hg] Brigitte Kupiec HEALTH INFORMATION ASSISTANT.PARK ACTIVITIES COORDINATOR Work Phone: [facility] 12-30-2021 13:20-0400 Body height 164.1 cm [facility] HEALTH INFORMATION ASSISTANT.PARK ACTIVITIES COORDINATOR Work Phone: [facility] 12-30-2021 13:20-0400 Body weight 85.82 kg [facility] HEALTH INFORMATION ASSISTANT.PARK ACTIVITIES COORDINATOR Work Phone: [facility] 12-30-2021 13:20-0400 Heart rate 71 /min [facility] HEALTH INFORMATION ASSISTANT.PARK ACTIVITIES COORDINATOR Work Phone: [facility] 12-30-2021 13:20-0400 SaO2% (BldA) [Mass fraction] 97 % [facility] HEALTH INFORMATION ASSISTANT.PARK ACTIVITIES COORDINATOR Work Phone: [facility] 12-22-2021 10:15-0400 Diastolic blood pressure 60 mm[Hg] Paulina Severino MD Work Phone: [facility] 12-22-2021 10:15-0400 Systolic blood pressure 174 mm[Hg] Paulina Quintanilla Work Phone: [facility] 12-22-2021 09:59-0400 Body height 163.8 cm Paulina Severino MD Work Phone: [facility] 12-22-2021 09:59-0400 Body temperature 97.7 [degF] Paulina Severino MD Work Phone: [facility] 12-22-2021 09:59-0400 Body weight 86.64 kg Paulina Severino MD Work Phone: [facility] 12-22-2021 09:59-0400 Heart rate 88 /min Paluina Severino MD Work Phone: [facility] 12-22-2021 09:59-0400 SaO2% (BldA) [Mass fraction] 97 % Paulina Severino MD Work Phone: [facility] Encounters Encounter Date Encounter Type Care Provider Facility Start: 05-29-2025 ambulatory Jazmyne Felia [facility] Facili ty:[facility] Start: 05-24-2025 ambulatory Jazmyne Felia O[facility] Facili ty:[facility] Start: 05-22-2025 ambulatory Jazmyne Felia OLS Facili ty:[facility] Start: 05-15-2025 ambulatory [facility] of Town Doctor Faci lity:[facility] Start: 05-10-2025 End: 05-10-2025 Telephone encounter Katelyn Duque MD Work Phone: Urology Comment on above: Orders Start: 05-08-2025 ambulatory Out of Town Doctor Faci lity:[facility] Start: 05-07-2025 End: 05-07-2025 Orders Only Elizabeth Echavarriaews HEALTH INFORMATION ASSISTANT.PARK ACTIVITIES COORDINATOR Work Phone: [facility] Comment on above: Carotid stenosis, as ymptomatic, bilateral (Primary Dx); History of bilateral carotid endarterectomy Start: 05-03-2025 ambulatory Out of Town Doctor Faci lity:[facility] Start: 05-01-2025 End: 05-02-2025 Telephone encounter Ayden Mills MD Work Phone: [facility] Start: 04-05-2025 End: 04-05-2025 Telephone encounter Paulina Severino MD Work Phone: [facility] Start: 04-05-2025 End: 05-02-2025 Evaluation and management of inpatient [facility] Facility[facility] Start: 04-04-2025 End: 04-05-2025 ambulatory Paulina Severino MD Work Phone: [facility] Comment on above: [facility] Start: 04-04-2025 End: 04-04-2025 Telephone encounter Thierry Rush MD Work Phone: Plastic Surgery Comment on above: Surgery Arrival Start: 04-02-2025 End: 04-03-2025 Telephone encounter Paulina Severino MD Work Phone: [facility] [place] Comment on above: Patient Update; Deya ent Question Start: 03-30-2025 End: 05-30-2025 Follow-up encounter Paulina Severino MD Work Phone: [facility] Start: 03-29-2025 End: 03-29-2025 Admission to establishment [facility] Pre Surgical Testing Start: 03-29-2025 End: 03-29-2025 Preprocedural examination done Pst 1 [facility] Work Phone: Start: 03-29-2025 End: 03-29-2025 ambulatory PAULINA SEVERINO Pre Surgical Testing Comment on above: Preoperative examina tion (Primary Dx); Obesity, Class III, BMI >= 40; History of CVA (cerebrovascular accident); Coronary artery disease involving mentasta coronary artery of mentasta heart, unspecified whether angina present; HFrEF (heart failure with reduced ejection fraction) ([facility]); Primary hypertension; Type 2 diabetes mellitus with diabetic neuropathy, with long-term current use of insulin ([facility]); Peripheral artery disease; Anemia, unspecified type Start: 03-28-2025 Encounter for other preprocedural examination LYUBOV [facility] Start: 03-28-2025 Preprocedural examination done Pst 1 [facility] Start: 03-27-2025 End: 03-27-2025 ambulatory Lyubov Hernandez APRN.CNP Work Phone: [facility] Comment on above: Xarelto Start: 03-21-2025 End: 03-21-2025 Telephone encounter Eduin Coleman APRN.PARK ACTIVITIES COORDINATOR Work Phone: [facility] Comment on above: [employer] - O ther Start: 03-20-2025 End: 03-20-2025 Office outpatient visit 25 minutes Thierry Rush MD Work Phone: Plastic Surgery Comment on above: Neuropathic pain (Pr imary Dx) Start: 03-20-2025 End: 03-20-2025 ambulatory THIERRY RUSH Facility:[facility] Start: 03-19-2025 End: 03-19-2025 Telephone encounter Paulina Severino MD Work Phone: NOC Start: 03-15-2025 End: 03-15-2025 Telephone encounter Paulina Severino MD Work Phone: NOC Comment on above: Transition Of Care Start: 03-05-2025 End: 03-05-2025 Patient encounter procedure Eduin Coleman APRN.PARK ACTIVITIES COORDINATOR Work Phone: [facility] Comment on above: Ultrasound Start: 03-05-2025 End: 03-05-2025 Telephone encounter Angela Cuadra MD [facility] Department Comment on above: Fabric Transition of Care Start: 03-05-2025 End: 03-05-2025 Office outpatient visit 25 minutes Lyubov Hernandez APRN.CNP Work Phone: [facility] Comment on above: Type 2 diabetes demetris itus with diabetic neuropathy, with long- term current use of insulin (HCC) (Primary Dx); PAD (peripheral artery disease) Start: 03-05-2025 End: 03-05-2025 ambulatory Eduin Coleman APRN.PARK ACTIVITIES COORDINATOR Work Phone: [facility] Start: 02-28-2025 End: 02-28-2025 ambulatory EDUIN COLEMAN [facility] Start: 02-28-2025 End: 02-28-2025 Patient encounter procedure Eduin Coleman APRN.PARK ACTIVITIES COORDINATOR [facility] Phone: [facility] [place] Comment on above: HFrEF (heart failure with reduced ejection fraction) (HCC) (Primary Dx); CAD S/P percutaneous coronary angioplasty; Mixed hyperlipidemia; Peripheral artery disease; Hypertension; S/P vascular bypass; History of CVA (cerebrovascular accident); Type 2 diabetes mellitus with diabetic neuropathy, with long-term current use of insulin (HCC); Coronary arteriosclerosis Start: 02-27-2025 End: 02-27-2025 Telephone encounter Angela Cuadra MD [facility] Department Comment on above: Fabric Transition of Care Start: 02-23-2025 End: 02-26-2025 Evaluation and management of inpatient DAVIN TOBIAS Facility:[facility] Start: 02-05-2025 End: 02-05-2025 ambulatory PAULINA SEVERINO [facility] Start: 01-29-2025 End: 01-29-2025 Office outpatient visit 25 minutes Paulina Severino MD Work Phone: [facility] Comment on above: Coronary arterioscle rosis (Primary Dx); Type 2 diabetes mellitus with diabetic peripheral angiopathy without gangrene, with long-term current use of insulin (HCC); Chronic anticoagulation; S/P AKA (above knee amputation) bilateral (HCC); Mixed hyperlipidemia Start: 01-29-2025 End: 01-29-2025 ambulatory LYUBOV HERNANDEZ Facility:[facility] Start: 01-25-2025 End: 01-26-2025 Refill Paulina Severino MD Work Phone: [facility] Comment on above: Refill Request Start: 01-07-2025 End: 01-08-2025 Refill Paulina Severino MD Work Phone: [facility] Comment on above: Refill Request Start: 12-30-2024 End: 01-03-2025 ambulatory Paulina Severino MD Work Phone: [facility] Comment on above: Nitro glycerin table ts Start: 12-11-2024 End: 12-13-2024 ambulatory Paulina Severino MD Work Phone: [facility] Comment on above: Referal Start: 12-10-2024 End: 12-11-2024 Refill Paulina Severino MD Work Phone: [facility] Comment on above: Refill Request Start: 11-23-2024 End: 11-23-2024 Office outpatient visit 40 minutes Davin Moran MD Work Phone: [facility] Comment on above: Coronary artery dise ase involving mentasta coronary artery of mentasta heart without angina pectoris (Primary Dx); S/P coronary artery stent placement; Primary hypertension; Mixed hyperlipidemia; Type 2 diabetes mellitus with diabetic neuropathy, with long-term current use of insulin (HCC); PVD (peripheral vascular disease) ([facility]) Start: 11-23-2024 End: 11-23-2024 ambulatory SELMA CHAPARRO [facility] Start: 11-22-2024 End: 11-29-2024 Telephone encounter Davin Moran MD Work Phone: [facility] Comment on above: Patient Update Start: 11-18-2024 End: 11-20-2024 Refill Lyubov Hernandez APRN.CNP Work Phone: [facility] Comment on above: Refill Request Start: 11-16-2024 End: 11-16-2024 Telephone encounter Davin Moran MD Work Phone: [facility] Comment on above: Appointment Start: 11-15-2024 End: 11-15-2024 Patient Outreach 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 Comment on above: Transition Of Care ( TCM F/U Outreach) Start: 11-14-2024 End: 11-14-2024 ambulatory SELMA CHAPARRO Facility:[facility] Start: 11-08-2024 End: 11-08-2024 ambulatory SELMA CHAPARRO Facility:[facility] Start: 11-08-2024 End: 11-08-2024 Patient encounter procedure Lyubov Hernandez APRN.PARK ACTIVITIES COORDINATOR Work Phone: [facility] Comment on above: Hospital discharge f ollow-up (Primary Dx); History of non-ST elevation myocardial infarction (NSTEMI); Superficial thrombophlebitis of left upper extremity; Hypertension; Type 2 diabetes mellitus with diabetic neuropathy, with long-term current use of insulin (HCC); PVD (peripheral vascular disease) (HCC); Stage 3a chronic kidney disease (HCC) Start: 11-06-2024 End: 11-06-2024 Patient Outreach Jodi Francis RN Work Phone: [facility] Comment on above: Transition Of Care ( TCM Initial Hospital Discharge from f main/) Start: 11-02-2024 End: 11-02-2024 Evaluation and management of inpatient SELMA CHAPARRO Facility:[facility] Start: 10-31-2024 End: 10-31-2024 Evaluation and management of inpatient STEFFANIE Christina KAYODE Facility:[facility] Start: 10-30-2024 End: 10-30-2024 ambulatory LOU CANELA Facility:[facility] Start: 10-25-2024 End: 10-25-2024 Evaluation and management of inpatient PAULINA R KONTAK Facility:[facility] Start: 10-25-2024 End: 10-25-2024 Evaluation and management of inpatient PAULINA R KONTAK Facility:[facility] Start: 10-23-2024 End: 10-23-2024 Evaluation and management of inpatient PAULINA R KONTAK Facility:[facility] Start: 10-21-2024 End: 10-21-2024 Evaluation and management of inpatient PAULINA R KONTAK Facility:[facility] Start: 10-18-2024 End: 10-18-2024 ambulatory UNKNOWN PROVIDER [facility] Start: 10-18-2024 End: 11-04-2024 Evaluation and management of inpatient PAULINA SEVERINO Facility:[facility] Start: 10-18-2024 Emergency department patient visit PAULINA SEVERINO Facility:[facility] Start: 10-16-2024 End: 10-16-2024 ambulatory LYUBOV HERNANDEZ Facility:[facility] Start: 10-09-2024 End: 10-09-2024 ambulatory PAULINA SEVERINO Facility:[facility] Start: 10-09-2024 End: 10-09-2024 Transitional care manage srvc 7 day discharge Lyubov Hernandez HEALTH INFORMATION ASSISTANT.NATHALY Work Phone: Family Practice Comment on above: Hyperkalemia (Primar y Dx); Hospital discharge follow-up; Type 2 diabetes mellitus with diabetic peripheral angiopathy without gangrene, with long-term current use of insulin ([facility]); HFrEF (heart failure with reduced ejection fraction) ([facility]) Start: 10-03-2024 End: 10-06-2024 Evaluation and management of inpatient DARRON VALENTINO Facility:[facility] Start: 10-03-2024 End: 10-03-2024 ambulatory LYUBOV HERNANDEZ [facility] Start: 10-03-2024 End: 10-03-2024 Telephone encounter Jonathan Lambert DO Work Phone: [facility] [place] Comment on above: Results; Orders Start: 10-02-2024 End: 10-02-2024 ambulatory LYUBOV HERNANDEZ [facility] Start: 09-07-2024 End: 09-07-2024 Telephone encounter Paulina Severino MD Work Phone: [facility] Comment on above: [facility] Plan of care orders. ) Start: 08-31-2024 End: 08-31-2024 Telephone encounter Paulina Severino MD Work Phone: Family Practice Comment on above: Orders ([facility]) Start: 08-22-2024 End: 08-22-2024 Telephone encounter Paulina Severino MD Work Phone: [facility] Comment on above: [facility] ([facility] PT order 1w1 week of 08/21/2024 ) Start: 08-22-2024 End: 08-22-2024 ambulatory LYUBOV HERNANDEZ Facility:[facility] Start: 08-22-2024 End: 08-22-2024 Patient encounter procedure Lyubov Hernandez APRN.PARK ACTIVITIES COORDINATOR Work Phone: [facility] Comment on above: Medicare annual well ness visit, subsequent (Primary Dx); Atherosclerosis of mentasta coronary artery of mentasta heart without angina pectoris; Mixed hyperlipidemia; Type 2 diabetes mellitus with diabetic neuropathy, with long-term current use of insulin (HCC); PAD (peripheral artery disease) (HCC); S/P AKA (above knee amputation), right (HCC); S/P AKA (above knee amputation) unilateral, left (HCC) Start: 08-21-2024 End: 08-21-2024 Refill Elizabeth Ball APRN.PARK ACTIVITIES COORDINATOR Work Phone: [facility] Comment on above: Refill Request Start: 08-14-2024 End: 08-14-2024 Telephone encounter Paulina Severino MD Work Phone: [facility] Comment on above: Orders ([facility]) Start: 08-10-2024 End: 08-10-2024 Telephone encounter Paulina Severino MD Work Phone: [facility] Start: 08-07-2024 End: 08-07-2024 Orders Only Thierry Rush MD Work Phone: Plastic Surgery Comment on above: Neuropathic pain (Pr imary Dx) Start: 07-28-2024 End: 07-28-2024 Telephone encounter Thierry Rush MD Work Phone: Plastic Surgery Comment on above: Auth Determination Start: 07-25-2024 End: 07-25-2024 ambulatory LYUBOV HERNANDEZ Facility:[facility] Start: 07-25-2024 End: 07-25-2024 Office outpatient visit 25 minutes Lyubov Hernandez APRN.PARK ACTIVITIES COORDINATOR Work Phone: [facility] Comment on above: Viral URI with cough (Primary Dx); Type 2 diabetes mellitus with diabetic peripheral angiopathy without gangrene, with long-term current use of insulin (HCC) Start: 07-19-2024 End: 07-19-2024 Telephone encounter Eduin Coleman APRN.PARK ACTIVITIES COORDINATOR Work Phone: [facility] Comment on above: Results Start: 07-19-2024 ambulatory EDUIN COLEMAN Facil ity:[facility] Start: 07-19-2024 End: 07-19-2024 Subsequent hospital visit by physician Card Lab Stress 1 [facility] CARDIAC TESTING Comment on above: HFrEF (heart failure with reduced ejection fraction) ([facility]) [I50.20] Start: 07-14-2024 End: 07-14-2024 Telephone encounter Paulina Severino MD Work Phone: [facility] Comment on above: Office Notes Faxed Start: 07-12-2024 End: 07-12-2024 Patient encounter procedure Eduin Coleman APRN.PARK ACTIVITIES COORDINATOR Work Phone: [facility] Comment on above: HFrEF (heart failure with reduced ejection fraction) (HCC) (Primary Dx); Atherosclerosis of mentasta coronary artery of mentasta heart without angina pectoris; Mixed hyperlipidemia; PAD (peripheral artery disease) (HCC); Hypertension; S/P vascular bypass; History of CVA (cerebrovascular accident); Type 2 diabetes mellitus with diabetic neuropathy, with long-term current use of insulin (HCC) Start: 07-12-2024 End: 07-12-2024 ambulatory SELF Facility:[facility] Start: 07-11-2024 End: 07-11-2024 Telephone encounter Paulina Severino MD Work Phone: [facility] Comment on above: Release Of Medical R ecords; Home Care (Recent H&P) Start: 07-11-2024 End: 07-11-2024 Office outpatient new 45 minutes Thierry Rush MD Work Phone: Plastic Surgery Comment on above: Neuropathic pain (Pr imary Dx) Start: 07-11-2024 End: 07-11-2024 ambulatory THIERRY RUSH Facility:[facility] Start: 07-10-2024 End: 07-10-2024 Refill Lyubov Hernandez HEALTH INFORMATION ASSISTANT.PARK ACTIVITIES COORDINATOR Work Phone: [facility] Comment on above: Refill Request Start: 07-04-2024 End: 07-04-2024 Telephone encounter Paulina Severino MD Work Phone: [facility] Comment on above: Orders ([facility]) Start: 06-30-2024 End: 06-30-2024 Telephone encounter Paulina Severino MD Work Phone: [facility] Comment on above: [facility] Verbal order for PT 06/26/2024) Start: 06-27-2024 End: 06-27-2024 ambulatory LYUBOV HERNANDEZ Facility:[facility] Start: 06-27-2024 End: 06-27-2024 Office outpatient visit 25 minutes Lyubov Hernandez HEALTH INFORMATION ASSISTANT.PARK ACTIVITIES COORDINATOR Work Phone: [facility] Comment on above: Type 2 diabetes demetris itus with diabetic peripheral angiopathy without gangrene, with long-term current use of insulin (HCC) (Primary Dx); Encounter for immunization Start: 06-18-2024 End: 06-19-2024 ambulatory Paulina Severino MD Work Phone: [facility] Comment on above: Rehab Start: 06-13-2024 End: 06-13-2024 MC Patient Msg Paulina Severino MD Work Phone: [facility] Comment on above: Refill Sent Start: 06-07-2024 End: 06-07-2024 ambulatory Ronna Leger RN [facility] Start: 06-07-2024 End: 06-07-2024 Patient encounter procedure Ronna Leger RN [facility] Comment on above: ACCarri JUAN RN ( Medication Adherence review per request of payer) Start: 06-07-2024 End: 06-07-2024 Telephone encounter Paulina Severino MD Work Phone: [facility] Comment on above: home care request (R ecent OV notes) Start: 06-06-2024 End: 06-07-2024 Telephone encounter Elizabeth Ball APRN.PARK ACTIVITIES COORDINATOR Work Phone: [facility] Comment on above: Referral Information Start: 06-06-2024 End: 06-06-2024 Patient encounter procedure Elizabeth Ball APRN.PARK ACTIVITIES COORDINATOR Work Phone: [facility] Comment on above: Carotid stenosis, as ymptomatic, bilateral (Primary Dx); History of bilateral carotid endarterectomy; History of above-knee amputation of both lower extremities (HCC); Amputation stump pain (HCC) (HCC); Aortoiliac occlusive disease (HCC) Start: 06-06-2024 End: 06-07-2024 ambulatory Paulina Severino MD Work Phone: [facility] Comment on above: Rehab Start: 05-24-2024 ambulatory ELIZABETH Hernandez ty:[facility] Start: 05-24-2024 End: 05-24-2024 Subsequent hospital visit by physician [place] [facility] Comment on above: Carotid stenosis, as ymptomatic, bilateral [I65.23] Start: 04-19-2024 Telephone encounter Lyubov barbosa HEALTH INFORMATION ASSISTANT.PARK ACTIVITIES COORDINATOR Work Phone: [facility] Comment on above: Results Start: 04-12-2024 ambulatory Madonna Montiel RN [facility] Care Management Comment on above: ACM DRAKE RN ( Medication adherence review per request of payer ) Start: 04-11-2024 Telephone encounter Lyubov barbosa APRN.PARK ACTIVITIES COORDINATOR Work Phone: [facility] [place] Comment on above: Appointment Start: 04-03-2024 Orders Only Elizabeth caceres HEALTH INFORMATION ASSISTANT.PARK ACTIVITIES COORDINATOR Work Phone: [facility] Comment on above: Carotid stenosis, as ymptomatic, bilateral (Primary Dx) Start: 03-27-2024 End: 03-27-2024 Office outpatient visit 25 minutes Lyubov Prado APRN.PARK ACTIVITIES COORDINATOR Work Phone: [facility] Comment on above: Type 2 diabetes demetris itus with diabetic peripheral angiopathy without gangrene, with long-term current use of insulin (HCC) (Primary Dx); Spinal stenosis of lumbar region with neurogenic claudication; PAD (peripheral artery disease) ([facility]); Status post above-knee amputation of both lower extremities ([facility]); HFrEF (heart failure with reduced ejection fraction) ([facility]); Coronary arteriosclerosis Start: 03-21-2024 ambulatory Madonna Yip mbulatory Care Management Comment on above: ACM DRAKE RN ( Medication adherence review per request of payer ) Start: 03-15-2024 Telephone encounter Paulina Severino MD Work Phone: [facility] Comment on above: Patient Update Start: 03-14-2024 ambulatory Paulina astudillo MD Work Phone: [email or web address] Start: 03-07-2024 ambulatory Paulina astudillo MD Work Phone: [facility] Comment on above: Recheck Start: 03-07-2024 Telephone encounter Paulina Severino MD Work Phone: [facility] Comment on above: Received Outside Med ical Records ([facility]) Start: 03-06-2024 Telephone encounter Paulina Severino MD Work Phone: [facility] Comment on above: Patient Update; Medi cation Problem (Medication clarification needed); Received Outside Medical Records ([place] Telephone visit summary 03/06/2024) Start: 03-02-2024 Refill Lyubov Raghav A PRN.PARK ACTIVITIES COORDINATOR Work Phone: [facility] Comment on above: Refill Request Start: 02-29-2024 ambulatory Elizabeth caceres HEALTH INFORMATION ASSISTANT.PARK ACTIVITIES COORDINATOR Work Phone: [facility] Comment on above: Script for [employer] Start: 01-30-2024 Refill Lyubov Raghav A PRN.PARK ACTIVITIES COORDINATOR Work Phone: [facility] Comment on above: Refill Request Start: 01-17-2024 Refill Lyubov Raghav A PRN.PARK ACTIVITIES COORDINATOR Work Phone: [facility] Comment on above: Refill Request Start: 01-11-2024 Refill Paulina astudillo MD Work Phone: [facility] Comment on above: Refill Request Start: 01-03-2024 Refill Paulina astudillo MD Work Phone: [facility] Comment on above: Refill Request Start: 12-29-2023 Patient Outreach Fritz Payan RN Work Phone: [facility] [employer] Comment on above: Post-Acute Transitio n (PAC Sixth Outreach) Population [facility] vigation Outreach ([facility] HCC/ CARE GAPS) Start: 12-28-2023 ambulatory Paulina astudillo MD Work Phone: [facility] Comment on above: [place] Start: 12-23-2023 Orders Only Elizabeht Blackwell ws HEALTH INFORMATION ASSISTANT.PARK ACTIVITIES COORDINATOR Work Phone: [facility] Comment on above: Aortoiliac occlusive disease (HCC) (Primary Dx); S/P AKA (above knee amputation) bilateral (HCC) Start: 12-22-2023 Patient Outreach Fritz Payan RN Work Phone: [facility] Comment on above: Post-Acute Transitio n (PAC Fifth Outreach) Start: 12-20-2023 ambulatory Paulina astudillo MD Work Phone: [facility] Comment on above: My right eye Start: 12-09-2023 Telephone encounter Paulina Severino MD Work Phone: [facility] Comment on above: Received Outside [facility] Records ([facility] ([facility]) Mobile physician summary 12/07/2023 ) Start: 12-08-2023 Patient Outreach Fritz Payan RN Work Phone: [facility] Comment on above: Post-Acute Transitio n (PAC Third Outreach) Start: 12-07-2023 Orders Only Elizabeth caceres HEALTH INFORMATION ASSISTANT.PARK ACTIVITIES COORDINATOR Work Phone: [facility] Start: 12-02-2023 Patient Outreach Fritz Payan RN Work Phone: [facility] Comment on above: Post-Acute Transitio n (PAC Second Outreach ( second attempt )) Start: 12-01-2023 Patient Outreach Fritz Payan RN Work Phone: [facility] Comment on above: Post-Acute Transitio n (PAC Second Outreach) Start: 11-30-2023 End: 11-30-2023 Patient encounter procedure Elizabeth Quinn WILEY.PARK ACTIVITIES COORDINATOR Work Phone: [facility] Comment on above: S/P AKA (above knee amputation), right (HCC) (Primary Dx); Hx of AKA (above knee amputation), left (HCC) Start: 11-24-2023 Patient Outreach Fritz Payan RN Work Phone: [facility] Comment on above: Post-Acute Transitio n (PAC First Outreach) Start: 11-20-2023 Refill Paulina astudillo MD Work Phone: [facility] Comment on above: Refill Request Start: 11-16-2023 Patient Outreach Fritz Payan RN Work Phone: [facility] Comment on above: Post-Acute Transitio n (PAC CHART REVIEW) Start: 11-09-2023 Telephone encounter Paulina Severion MD Work Phone: [facility] Comment on above: Received Outside [facility] Records ([facility], Jaquelin Sykes MD) Start: 11-09-2023 End: 11-09-2023 Patient encounter procedure Elizabeth Ball APRN.PARK ACTIVITIES COORDINATOR Work Phone: [facility] Comment on above: PVD (peripheral vasc ular disease) (HCC) (Primary Dx); S/P AKA (above knee amputation), right (HCC); Hx of AKA (above knee amputation), left (HCC) Start: 11-05-2023 Telephone encounter Anne guzman MD Work Phone: [facility] Comment on above: Question ([facility] ) Start: 11-04-2023 ambulatory Marianna Klein MA Work Phone: [facility] Start: 11-04-2023 Follow-up encounter Marianna hernandez MA Work Phone: Internal Medicine Comment on above: Post-Acute Transitio n (SNF TCM PAC Follow up #2 chart review ) Start: 11-03-2023 Telephone encounter Paulina Severino MD Work Phone: [facility] Comment on above: Received Outside Med ical Records ([facility] Orders for OT Eval and treat for ADL's 10/29/2023) Start: 11-02-2023 Telephone encounter Paulina Severino MD Work Phone: [facility] Comment on above: Orders ([facility]) Start: 11-01-2023 Telephone encounter Paulina Severino MD Work Phone: [facility] Comment on above: Received Outside Med ical Records ([facility] for SN, PT, PROPERTY UNDERWRITER to evaluate and treat. 10/21/2023) Start: 10-28-2023 ambulatory Marianna Klein MA Work Phone: [facility] Start: 10-28-2023 Follow-up encounter Marianna hernandez MA Work Phone: Internal Medicine Comment on above: Post-Acute Transitio n (SNF TCM PAC Follow up #1 ) Start: 10-28-2023 Telephone encounter Paulina Severino MD Work Phone: [facility] Comment on above: Orders ([facility]) Start: 10-24-2023 ambulatory Paulina astudillo MD Work Phone: [facility] Comment on above: Gabapentin 600 MG Start: 10-21-2023 Telephone encounter Paulina Severino MD Work Phone: [facility] Comment on above: Orders ([facility] Start: 10-20-2023 End: 10-20-2023 Patient encounter procedure Paulina Severino MD Work Phone: [facility] Comment on above: Aortoiliac occlusive disease (HCC) (Primary Dx); Gangrene of right foot (HCC); S/P AKA (above knee amputation) bilateral (HCC); Coronary arteriosclerosis; PAD (peripheral artery disease) (HCC); Postoperative pain; Chronic bronchitis, unspecified chronic bronchitis type (HCC); Malnutrition of moderate degree (HCC); HFrEF (heart failure with reduced ejection fraction) (HCC); Type 2 diabetes mellitus with diabetic peripheral angiopathy without gangrene, with long-term current use of insulin (HCC); 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); Abnormality of gait; Falling episodes Start: 08-18-2023 End: 08-18-2023 Patient encounter procedure [facility] Comment on above: 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) (Primary Dx); Gangrene of toe of right foot (HCC); Type 2 diabetes mellitus with foot ulcer (CODE) (HCC); Peripheral vascular disease, unspecified (HCC) Start: 08-17-2023 Telephone encounter Anne guzman MD Work Phone: [facility] Comment on above: Referral Information Start: 08-10-2023 End: 08-10-2023 Patient encounter procedure Anne Villalpando MD Work Phone: [facility] Comment on above: PVD (peripheral vasc ular disease) (HCC) (Primary Dx); S/P AKA (above knee amputation), left (HCC) Start: 08-05-2023 Telephone encounter Paulina Severino MD Work Phone: [facility] Comment on above: Received Outside [facility] Records ([facility] Tele Audio visit 08/02/2023) Start: 08-04-2023 End: 08-04-2023 Patient encounter [facility] Comment on above: 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) (Primary Dx); Type 2 diabetes mellitus with foot ulcer (CODE) ([facility]); Peripheral vascular disease, unspecified (HCC) Start: 07-29-2023 Telephone encounter Michele alexander MD Work Phone: Pain Management Comment on above: Injection reschedule ; Need Approval to hold Anticoagulation Start: 07-28-2023 End: 07-28-2023 Patient encounter procedure Dylan [facility] Comment on above: 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) (Primary Dx); Type 2 diabetes mellitus with foot ulcer (CODE) (HCC); Peripheral vascular disease, unspecified (HCC) Start: 07-21-2023 End: 07-21-2023 Office outpatient new 45 minutes Pamela Hills MD Work Phone: Neurology Comment on above: Acute right-sided lo w back pain with right-sided sciatica; Spinal stenosis of lumbar region with neurogenic claudication Start: 07-20-2023 Telephone encounter Paulina Severino MD Work Phone: [facility] Start: 07-19-2023 End: 07-19-2023 Patient encounter procedure Paulina Severino MD Work Phone: [facility] Comment on above: Encounter for immuni zation (Primary Dx); Tachycardia; HFrEF (heart failure with reduced ejection fraction) (HCC); Peripheral vascular disease (HCC); 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); Abnormal EKG Start: 07-16-2023 End: 07-16-2023 Subsequent hospital visit by physician [place] [facility] Comment on above: 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) [L97.519] Start: 07-16-2023 End: 07-16-2023 Patient encounter procedure Dylan [facility] Comment on above: 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) (Primary Dx); Type 2 diabetes mellitus with foot ulcer (CODE) (HCC); Peripheral vascular disease, unspecified (HCC); Abnormal radiographic examination Start: 07-13-2023 End: 07-13-2023 Patient encounter procedure Anne Villalpando MD Work Phone: [facility] Comment on above: Open wound of fourth toe of right foot, initial encounter (Primary Dx); S/P AKA (above knee amputation), left (HCC); PVD (peripheral vascular disease) (HCC) Start: 06-30-2023 Orders Only Michele Jalloh MD Work Phone: Pain Management Comment on above: Acute right-sided lo w back pain with right-sided sciatica (Primary Dx); Spinal stenosis of lumbar region with neurogenic claudication request for chart no giselle ([facility] ) Start: 06-29-2023 End: 06-29-2023 Patient encounter procedure Elizabeth Ball PARK ACTIVITIES COORDINATOR Work Phone: [facility] Comment on above: PVD (peripheral vasc ular disease) (HCC) (Primary Dx); Aortoiliac occlusive disease (HCC); Open wound of fourth toe of right foot, initial encounter; Open wound of lesser toe of right foot; Atherosclerosis of aorta (HCC); Diminished pulses in lower extremity Start: 06-29-2023 ambulatory Paulina astudillo MD Work Phone: [facility] Comment on above: Insulin Readings Start: 06-28-2023 Refill Paulina astudillo MD Work Phone: [facility] Comment on above: Refill Request Start: 06-09-2023 End: 06-09-2023 Patient encounter procedure Davin August PA-C Work Phone: [facility] Comment on above: Acute right-sided lo w back pain with right-sided sciatica (Primary Dx); Spinal stenosis of lumbar region with neurogenic claudication Start: 06-01-2023 End: 06-01-[address] [facility] Comment on above: Difficulty walking ( Primary Dx); Weakness of both lower extremities Start: 05-27-2023 ambulatory Paulina astudillo MD Work Phone: [facility] Comment on above: My blood sugar Start: 05-26-2023 End: 05-26-2023 Subsequent hospital visit by physician Roseline Pearson MD Work Phone: [facility] Comment on above: Positive FIT (fecal immunochemical test) [R19.5] Start: 05-24-2023 Telephone encounter Anne guzman MD Work Phone: [facility] Comment on above: Appointment (6 Month with testing) Start: 05-11-2023 End: 05-11-2023 ambulatory Kath Reusch PT Work Phone: [facility] Comment on above: Difficulty walking ( Primary Dx); Weakness of both lower extremities Start: 05-10-2023 ambulatory Paulina astudillo MD Work Phone: [facility] Comment on above: Insulin 05/09/2023 Start: 05-06-2023 End: 05-06-2023 ambulatory Kath Reusch PT Work Phone: [facility] Comment on above: Difficulty walking ( Primary Dx); Weakness of both lower extremities Start: 04-30-2023 Refill Elizabethlibertad caceres HEALTH INFORMATION ASSISTANT.PARK ACTIVITIES COORDINATOR Work Phone: [facility] Comment on above: Refill Request Start: 04-28-2023 ambulatory Paulina astudillo MD Work Phone: [facility] Comment on above: Insulin Start: 04-22-2023 End: 04-22-2023 Patient encounter procedure Paulina Severino MD Work Phone: [facility] Comment on above: Type 2 diabetes demetris itus with diabetic peripheral angiopathy without gangrene, with long-term current use of insulin (HCC) (Primary Dx); Other age-related incipient cataract of right eye; Encounter for immunization; Depressive disorder Start: 04-21-2023 Refill Elizabeth caceres HEALTH INFORMATION ASSISTANT.PARK ACTIVITIES COORDINATOR Work Phone: [facility] Comment on above: Refill Request Start: 04-17-2023 End: 04-17-2023 ambulatory Kath Reusch PT Work Phone: [facility] Comment on above: Difficulty walking ( Primary Dx); Weakness of both lower extremities Start: 04-01-2023 End: 04-01-2023 ambulatory Kath Reusch PT Work Phone: [facility] Comment on above: Difficulty walking ( Primary Dx); Weakness of both lower extremities Start: 03-22-2023 End: 03-22-2023 ambulatory Sandra Alba [facility] Comment on above: Difficulty walking ( Primary Dx); Weakness of both lower extremities Start: 03-15-2023 End: 03-15-[address] [facility] Comment on above: Difficulty walking ( Primary Dx); Weakness of both lower extremities Start: 03-09-2023 End: 03-09-2023 ambulatory [facility] Work Phone: [facility] Comment on above: Difficulty walking ( Primary Dx); Weakness of both lower extremities Start: 03-04-2023 End: 03-04-2023 ambulatory [facility] Work Phone: [facility] Comment on above: Difficulty walking ( Primary Dx); Weakness of both lower extremities Start: 02-24-2023 End: 02-24-2023 Patient encounter procedure Paulina Severino MD Work Phone: [facility] Comment on above: Type 2 diabetes demetris itus with diabetic peripheral angiopathy without gangrene, with long-term current use of insulin ([facility]) (Primary Dx); S/P AKA (above knee amputation) unilateral, left ([facility]); HFrEF (heart failure with reduced ejection fraction) ([facility]); Sciatic nerve pain, unspecified laterality; Peripheral vascular disease (HCC); 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 ([facility]) Start: 02-22-2023 Telephone encounter Paulina Severino MD Work Phone: [facility] Comment on above: request for outside records ([facility]) Start: 02-22-2023 End: 02-22-[address] [facility] Comment on above: Difficulty walking ( Primary Dx); Weakness of both lower extremities Start: 02-16-2023 End: 02-16-[address] [facility] Comment on above: Difficulty walking ( Primary Dx); Weakness of both lower extremities Start: 02-01-2023 Telephone encounter Paulina Severino MD Work Phone: [facility] Comment on above: Received Outside [facility] Records (Home visit clinical summary, [facility] 01/29/23) Start: 01-28-2023 End: 01-28-2023 ambulatory Kath Reusch PT Work Phone: [facility] Comment on above: Difficulty walking ( Primary Dx); Weakness of both lower extremities Start: 01-26-2023 Telephone encounter Jessica Corderokorey WATTS [facility] Comment on above: Orders Start: 01-25-2023 End: 01-25-2023 Patient encounter procedure Jessica Jorge WATTS [facility] Comment on above: Positive FIT (fecal immunochemical test) (Primary Dx); Malnutrition of mild degree (HCC) Start: 01-20-2023 End: 01-20-2023 ambulatory Kath Reusch PT Work Phone: [facility] Comment on above: Difficulty walking ( Primary Dx); Weakness of both lower extremities Start: 01-07-2023 End: 01-07-2023 ambulatory Kath Reusc PT Work Phone: [facility] Comment on above: Difficulty walking ( Primary Dx); Weakness of both lower extremities Start: 12-31-2022 End: 12-31-2022 ambulatory Kath [facility] Work Phone: [facility] Comment on above: Difficulty walking ( Primary Dx); Weakness of both lower extremities Start: 12-30-2022 ambulatory Ronna Leger RN [facility] Comment on above: TIERA JUAN RN ( Medication Adherence review per request of payer) Start: 12-30-2022 End: 12-30-2022 Subsequent hospital visit by physician Card Lab Nuclear Camera [place] [facility] Comment on above: Arrived Start: 12-15-2022 End: 12-15-2022 Patient encounter procedure Anne Villalpando MD Work Phone: [facility] Comment on above: PVD (peripheral vasc ular disease) (HCC) (Primary Dx) Start: 12-14-2022 End: 12-14-2022 ambulatory Eva Awad PROPERTY UNDERWRITER Work Phone: [facility] Comment on above: Difficulty walking ( Primary Dx); Weakness of both lower extremities Start: 12-08-2022 End: 12-08-2022 ambulatory Kath Reusch PT Work Phone: [facility] Comment on above: Difficulty walking ( Primary Dx); Weakness of both lower extremities Start: 12-07-2022 E-mail encounter fro m caregiver Paulina Severino MD Work Phone: [facility] Start: 12-07-2022 Patient encounter procedure Paulina Severino MD Work Phone: [facility] Comment on above: GI Consult Start: 12-07-2022 Telephone encounter Paulina Severino MD Work Phone: [facility] Comment on above: Results Start: 12-03-2022 End: 12-03-2022 ambulatory Kath Reusch PT Work Phone: [facility] Comment on above: Difficulty walking ( Primary Dx); Weakness of both lower extremities Start: 12-01-2022 End: 12-01-2022 ambulatory Kath Reusch PT Work Phone: [facility] Comment on above: Difficulty walking ( Primary Dx); Weakness of both lower extremities Start: 11-24-2022 End: 11-24-[address] [facility] Comment on above: Difficulty walking ( Primary Dx); Weakness of both lower extremities Start: 11-19-2022 End: 11-19-2022 ambulatory Eva Awad PROPERTY UNDERWRITER Work Phone: [facility] Comment on above: Difficulty walking ( Primary Dx); Weakness of both lower extremities Start: 11-17-2022 End: 11-17-[address] [facility] Comment on above: Difficulty walking ( Primary Dx); Weakness of both lower extremities Start: 11-12-2022 End: 11-12-2022 ambulatory Evabib Awad PROPERTY UNDERWRITER Work Phone: [facility] Comment on above: Difficulty walking ( Primary Dx); Weakness of both lower extremities Start: 11-12-2022 Patient encounter procedure Paulina Severino MD Work Phone: [facility] Comment on above: Missed appointment Start: 11-10-2022 End: 11-10-2022 ambulatory Eva Awad PROPERTY UNDERWRITER Work Phone: [facility] Comment on above: Difficulty walking ( Primary Dx); Weakness of both lower extremities Start: 11-10-2022 Refill Paulina astudillo MD Work Phone: [facility] Comment on above: Refill Request Start: 11-05-2022 End: 11-05-2022 ambulatory Kath Reusch PT Work Phone: [facility] Comment on above: Difficulty walking ( Primary Dx); Weakness of both lower extremities Start: 11-03-2022 End: 11-03-2022 ambulatory Kath Reusch PT Work Phone: [facility] Comment on above: Difficulty walking; Weakness of both lower extremities ACM DRAKE RN ( Medication Adherence review at request of payer.) Start: 10-29-2022 Telephone encounter Paulina Severino MD Work Phone: [facility] Comment on above: Received Outside Med ical Records ([facility] Home visit 10/29/2022) Start: 10-23-2022 Orders Only Elizabeth caceres HEALTH INFORMATION ASSISTANT.PARK ACTIVITIES COORDINATOR Work Phone: [facility] Comment on above: S/P AKA (above knee amputation), left (HCC) (Primary Dx) Referral Information Start: 09-17-2022 Telephone encounter Paulina Severino MD Work Phone: [facility] Comment on above: Received Outside Med ical Records ([facility] provider) Start: 09-16-2022 ambulatory Elizabeth caceres HEALTH INFORMATION ASSISTANT.PARK ACTIVITIES COORDINATOR Work Phone: [facility] Comment on above: My leg records I'm sorry that I sen t 2 messages Start: 09-09-2022 End: 09-09-2022 Subsequent hospital visit by physician Card Lab Nuclear Camera [place] [facility] Comment on above: No Show Start: 09-08-2022 Telephone encounter Davin temple MD Work Phone: [facility] Comment on above: [employer] Start: 08-24-2022 End: 08-24-2022 Subsequent hospital visit by physician [place] [facility] Comment on above: Bilateral carotid ar jules stenosis [I65.23] Start: 08-06-2022 End: 08-06-2022 Patient encounter procedure Paulina Severino MD Work Phone: [facility] Comment on above: Type 2 diabetes demetris itus with diabetic peripheral angiopathy without gangrene, with long-term current use of insulin (HCC) (Primary Dx); Primary hypertension; Mixed hyperlipidemia; Anemia, unspecified type Start: 08-03-2022 Telephone encounter Paulina Severino MD Work Phone: [facility] Comment on above: Received Outside Med ical [facility] for need of CGM 08/03/2022) Start: 07-23-2022 ambulatory Paulina astudillo MD Work Phone: [facility] Comment on above: Freestyle cl 2 Start: 07-22-2022 Telephone encounter Paulina Severino MD Work Phone: [facility] Comment on above: Orders ([facility]) Start: 07-21-2022 ambulatory Landen poole MD Work Phone: Endocrinology Comment on above: Paperwork for you Start: 07-10-2022 End: 07-10-2022 Patient encounter procedure Paulina Severino MD Work Phone: [facility] Comment on above: Type 2 diabetes demetris itus with diabetic peripheral angiopathy without gangrene, with long-term current use of insulin (HCC) (Primary Dx); Encounter for immunization; Painful diabetic neuropathy (HCC); S/P AKA (above knee amputation) unilateral, left (HCC) Start: 07-09-2022 Telephone encounter Paulina Severino MD Work Phone: [facility] Comment on above: Orders ([facility]) Start: 06-30-2022 ambulatory Elizabeth odonnell RN Work Phone: [facility] Comment on above: ACM DRAKE RN ( Medication adherence review per [facility]) Start: 06-24-2022 ambulatory Paulina astudillo MD Work Phone: Internal Medicine [facility] [place] Start: 06-24-2022 Telephone encounter Paulina Severino MD Work Phone: [facility] Comment on above: Orders ([facility] (06/23/22)) Start: 06-23-2022 Telephone encounter Paulina Severino MD Work Phone: [facility] Comment on above: Orders ([facility] (06/23/22)) Start: 06-22-2022 Telephone encounter Paulina Severino MD Work Phone: [facility] Comment on above: Orders ([facility]) Start: 06-19-2022 Refill Paulina astudillo MD Work Phone: [facility] Comment on above: Refill Request Start: 06-17-2022 Telephone encounter Paulina Severino MD Work Phone: [facility] Comment on above: Orders ([facility]) Start: 06-17-2022 End: 06-17-2022 Patient encounter procedure Elizabeth Quinn WILEY.PARK ACTIVITIES COORDINATOR Work Phone: [facility] Comment on above: S/P AKA (above knee amputation), left (HCC) (Primary Dx); S/P vascular bypass; PVD (peripheral vascular disease) (HCC); Aortoiliac occlusive disease (HCC) Start: 06-15-2022 Telephone encounter Paulina Severino MD Work Phone: [facility] Comment on above: Orders ([facility] PT[facility]) Start: 06-12-2022 Nurse Triage Paulina astudillo MD Work Phone: [facility] Comment on above: Orders Start: 06-09-2022 Telephone encounter Paulina Severino MD Work Phone: [facility] Comment on above: Sign for home care o rders Start: 06-07-2022 ambulatory Paulina astudillo MD Work Phone: [facility] Comment on above: My oxy prescription Start: 06-04-2022 ambulatory [facility] Start: 06-02-2022 Telephone encounter Paulina Severino MD Work Phone: [facility] Comment on above: Received Outside Med ical Records ([facility] blood sugar results) Start: 05-28-2022 Telephone encounter Paulina Severino MD Work Phone: [facility] Comment on above: Outside Labs Results ([facility]) Start: 05-26-2022 ambulatory Bee [facility] Start: 05-22-2022 Telephone encounter Selma Juancarlos bonilla APRN.CNP Work Phone: [facility] Comment on above: Appointment Start: 05-21-2022 Telephone encounter Paulina Severino MD Work Phone: [facility] Comment on above: Orders Start: 05-20-2022 Telephone encounter Ashley hightower PA-C Work Phone: [place] [facility] Comment on above: Follow Up Start: 05-15-2022 ambulatory Soraya obrien Work Phone: Pulmonary Medicine Start: 04-28-2022 Telephone encounter Anne guzman MD Work Phone: [facility] Comment on above: Schedule Surgery Start: 04-23-2022 End: 04-23-2022 Subsequent hospital visit by physician [facility] [place] [facility] (I-Stat) [facility] Comment on above: Atherosclerosis of a simeon (HCC) [I70.0] Start: 04-21-2022 Orders Only Christi Jones MD Work Phone: [place] [facility] Comment on above: Gangrene (HCC) (Prim latia Dx); PAD (peripheral artery disease) (HCC); Atherosclerosis of aorta (HCC); Peripheral vascular disease (HCC); Diminished pulses in lower extremity; Disorder of artery or arteriole (HCC) Start: 04-20-2022 ambulatory Malgorzata Kirkpatrick MD Work Phone: [facility] Comment on above: Pain and sleep Start: 04-17-2022 Telephone encounter Christi Jones MD Work Phone: [facility] Comment on above: Appointment (Appoint ment) Appointment Start: 04-15-2022 End: 04-15-2022 Subsequent hospital visit by physician Mri [place] (1.5t/Lg Bore 70cm) Work Phone: [facility] Comment on above: 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 [M48.062] Start: 04-15-2022 Telephone encounter Malgorzata Kirkpatrick MD Work Phone: [facility] Comment on above: Future Appointment ( FUTURE EMG ) Start: 04-14-2022 End: 04-14-2022 Patient encounter procedure Malgorzata Kirkpatrick MD Work Phone: [facility] Comment on above: Spinal stenosis, lum bar region, without neurogenic claudication (Primary Dx); Disturbance of skin sensation; Radiculopathy, lumbosacral region; Other chronic pain; Spinal stenosis of lumbar region with neurogenic claudication Start: 04-14-2022 Telephone encounter Malgorzata Kirkpatrick MD Work Phone: [facility] Comment on above: MRI Appointment Start: 03-31-2022 ambulatory Paulina astudillo MD Work Phone: [facility] Comment on above: Tramadol Start: 03-30-2022 End: 03-30-2022 Patient encounter procedure Landen Milner PA-C Work Phone: [facility] Comment on above: Acute midline low ba ck pain, unspecified whether sciatica present (Primary Dx) Start: 03-27-2022 End: 03-27-2022 Patient encounter procedure Paulina Severino MD Work Phone: [facility] Comment on above: Acute right-sided lo w back pain with right-sided sciatica (Primary Dx) Start: 03-25-2022 Refill Paulina astudillo MD Work Phone: [facility] Comment on above: Refill Request Start: 03-24-2022 Telephone encounter Landen Clement MD Work Phone: Endocrinology Comment on above: Blood Sugar Reading Start: 03-23-2022 ambulatory Paulina astudillo MD Work Phone: [facility] Comment on above: Tramadol Prednisone Start: 03-13-2022 ambulatory Davin BUTLERC Work Phone: [facility] Comment on above: My sciatic nerve Start: 03-13-2022 End: 03-13-2022 Patient encounter procedure Paulina Severino MD Work Phone: [facility] Comment on above: DDD (degenerative di sc disease), lumbar (Primary Dx); Right sided sciatica; Lumbar foraminal stenosis; Type 2 diabetes mellitus with diabetic neuropathy, with long-term current use of insulin (HCC); Hospital discharge follow-up; Chronic anticoagulation Start: 03-06-2022 End: 03-06-2022 Subsequent hospital visit by physician Adali Pichardo MD Work Phone: [facility] INTERVENTIONAL RADIOLOGY Comment on above: Spinal stenosis, uns pecified spinal region [M48.00] Start: 03-03-2022 Patient Outreach Dereck Butleru latory Care Management Comment on above: Transition Of Care ( TCM [facility] discharge 03-02-22- initial outreach ) Start: 02-20-2022 Telephone encounter Davin heath PA-C Work Phone: [facility] Comment on above: Pain; Patient Update (phone number change to call him back); Orders (MRI) Start: 02-13-2022 End: 02-13-2022 ambulatory Thierry [facility] Outpatient Physical Therapy Comment on above: Acute right-sided lo w back pain with right-sided sciatica (Primary Dx) Start: 02-05-2022 End: 02-05-2022 ambulatory Sandra Alba [facility] Outpatient Physical Therapy Comment on above: Acute right-sided lo w back pain with right-sided sciatica (Primary Dx) Start: 01-28-2022 End: 01-28-2022 ambulatory Ronna Shorty PROPERTY UNDERWRITER Work Phone: [facility] Outpatient Physical Therapy Comment on above: Acute right-sided lo w back pain with right-sided sciatica (Primary Dx) Start: 01-20-2022 End: 01-20-2022 ambulatory Loan Hennessy PT, DPT Work Phone: [facility] Outpatient Physical Therapy Comment on above: Acute right-sided lo w back pain with right-sided sciatica (Primary Dx) Start: 01-19-2022 Telephone encounter Paulina Severino MD Work Phone: [facility] Comment on above: Patient Question Start: 01-16-2022 End: 01-16-2022 ambulatory Soham Blancas PT, DPT Work Phone: [facility] Outpatient Physical Therapy Comment on above: Acute right-sided lo w back pain with right-sided sciatica Start: 01-01-2022 End: 01-01-2022 Patient encounter procedure Davin August PA-C Work Phone: [facility] Comment on above: Acute right-sided lo w back pain with right-sided sciatica Start: 12-30-2021 End: 12-30-2021 Patient encounter procedure Brigitte Dias APRN.PARK ACTIVITIES COORDINATOR Work Phone: Endocrinology Comment on above: Type 2 diabetes demetris itus with diabetic neuropathy, with long- term current use of insulin (HCC) (Primary Dx); Type 2 diabetes mellitus with diabetic peripheral angiopathy without gangrene, with long-term current use of insulin (HCC); Type 2 diabetes mellitus with microalbuminuria, with long-term current use of insulin (HCC); Mixed hyperlipidemia; Primary hypertension; Peripheral vascular disease (HCC); Class 1 obesity with serious comorbidity and body mass index (BMI) of 31.0 to 31.9 in adult, unspecified obesity type Start: 12-24-2021 Telephone encounter Christi Jones MD Work Phone: [facility] Comment on above: Appointment (appoint ment ) Start: 12-22-2021 End: 12-22-2021 Patient encounter procedure Paulina Severino MD Work Phone: [facility] Comment on above: Hypertension (Primar y Dx); Type 2 diabetes mellitus with diabetic neuropathy, with long-term current use of insulin (HCC); Painful diabetic neuropathy (HCC); Acute right-sided low back pain with right-sided sciatica; Bacterial sinusitis Procedures Date Procedure Procedure Detail Performing Clinician Start: 04-18-2025 Antibody screen LYUBOV SANCHEZ Comment on above: Order Comment: Speci men Type: BLOOD SPECIMENOrdering Facility: [facility] Address: [address] [place] [address] Performed By: #### T SCR ####[facility] BLOOD BANKCLIA [id number] [address] Start: 04-11-2025 Antibody screen LYUBOV SANCHEZ Comment on above: Order Comment: Speci men Type: BLOOD SPECIMENOrdering Facility: [facility] Address: [address] [place] [address] Performed By: #### T SCR ####[facility] BLOOD BANKCLIA [id number] [address] Start: 04-07-2025 Electrocardiogram LYUBOV MARY Start: 03-05-2025 Hemoglobin A1c/Hemoglobin.total in Blood Lyubov Hernandez HEALTH INFORMATION ASSISTANT.PARK ACTIVITIES COORDINATOR Work Phone: Start: 02-23-2025 Electrocardiogram LYUBOV HERNANDEZ Start: 10-19-2024 Echocardiography KRISTYN SEVERINO Start: 10-18-2024 Antibody screen PAULINA SEVERINO Comment on above: Order Comment: Speci men Type: BLOOD SPECIMENOrdering Facility: [facility] Address: [address] [place] [address] Performed By: #### T SCR ####[facility] BLOOD BANKCLIA [id number] [address] Start: 07-19-2024 Echo tthrc r-t 2d w/wom-mode compl spec&colr d Eduin Coleman HEALTH INFORMATION ASSISTANT.PARK ACTIVITIES COORDINATOR Work Phone: Start: 07-19-2024 Echocardiography LYUBOV MARY Start: 06-27-2024 PFIZER-BIONTECH COVI D-19 VACCINE AGE 12+ YR (COMIRNATY) Lyubovcatherine Hernandez HEALTH INFORMATION ASSISTANT.PARK ACTIVITIES COORDINATOR Work Phone: Start: 06-27-2024 Hemoglobin A1c/Hemoglobin.total in Blood Lyubov Mary HEALTH INFORMATION ASSISTANT.PARK ACTIVITIES COORDINATOR Work Phone: Start: 03-27-2024 Hemoglobin A1c/Hemoglobin.total in Blood Lyubov Sweetins HEALTH INFORMATION ASSISTANT.PARK ACTIVITIES COORDINATOR Work Phone: Start: 07-19-2023 INFLUENZA VACCINE, P RSV FREE, AGE 65+ YR, HIGH DOSE, QUADRIVALENT (FLUZONE HIGH-DOSE) Paulina Severino MD Work Phone: Start: 07-19-2023 PFIZER-BIONTECH COVI D-19 VACCINE ( SEASON) AGE 12+ YR Paulina Severino MD Work Phone: Start: 05-26-2023 Gluc bld gluc mntr d ev cleared fda spec home use Loan Good HEALTH INFORMATION ASSISTANT.DIVIDEND DEPOSIT ENTRY CLERK Start: 05-26-2023 Colonoscopy flx dx w /collj spec when pfrmd Jessica Patel PA-C Work Phone: Start: 05-26-2023 End: 05-26-2023 Basic metabolic panel calcium total Nydia Baez MD Work Phone: Start: 05-26-2023 Colonoscopy Roseline Pearson MD Work Phone: Start: 04-22-2023 PFIZER-BIONTECH COVI D-19 BIVALENT VACCINE, AGE 12+ YR Paulina Severino MD Work Phone: Start: 04-22-2023 Hemoglobin A1c/Hemoglobin.total in Blood Paulina Severino MD Work Phone: Start: 12-30-2022 Myocardial spect sin gle study at rest or stress Davin Moran MD Work Phone: Start: 07-10-2022 INFLUENZA SEASONAL QUADRIVALENT HIGH DOSE AGE 65+ Paulina Severino MD Work Phone: Start: 07-10-2022 PFIZER-BIONTmechatronic systemtechnik COVI D-19 BIVALENT BOOSTER VACCINE, AGE 12+ YR Paulina Severino MD Work Phone: Start: 05-26-2022 BMP - EXTERNAL Paulina Severino MD Work Phone: Start: 05-26-2022 CBC panel - Blood by Automated count Paulina Severino MD Work Phone: Start: 04-23-2022 Ct angiography chest w/contrast/noncontrast Christi Jones MD Work Phone: Start: 04-23-2022 Cta abdl aorta&bi il iofem w/contrast&postp Christi Jones MD Work Phone: Start: 04-15-2022 Mri spinal canal lum bar w/o contrast material Malgorzata Kirkpatrick MD Work Phone: Start: 04-14-2022 Adult depression scr eening assessment Malgorzata Kirkpatrick MD Work Phone: Start: 12-30-2021 Hemoglobin A1c/Hemoglobin.total in Blood Brigitte Dias HEALTH INFORMATION ASSISTANT.PARK ACTIVITIES COORDINATOR Work Phone: Start: 07-04-2021 Colonoscopy Jessica Patel PA-C Work Phone: History of carotid endarterectomy History of bilateral carotid endarterectomy Us 2 History of carotid endarterectomy History of bilateral carotid endarterectomy Elizabeth Ball HEALTH INFORMATION ASSISTANT.PARK ACTIVITIES COORDINATOR Work Phone: History of carotid endarterectomy History of bilateral carotid endarterectomy Elizabeth Ball HEALTH INFORMATION ASSISTANT.PARK ACTIVITIES COORDINATOR Work Phone: History of placement of stent for coronary artery disease S/P coronary artery stent placement Davin Moran MD Work Phone: History of placement of stent for coronary artery disease S/P coronary artery stent placement Davin Moran MD Work Phone: Plan of Treatment Date Care Activity Detail Author Start: 05-26-2028 Screening for malignant neoplasm of colon [facility] Start: 05-02-2026 Creatinine measurement Serum Creatinine [facility] Start: 03-29-2026 Creatinine measurement Serum Creatinine [facility] Start: 03-29-2026 Hepatitis B surface antibody level LDL Cholesterol [facility] Start: 03-05-2026 Annual PCP Team Chronic Disease Visit Annual PCP Team Chronic Disease Visit [facility] Start: 02-26-2026 Creatinine measurement Serum Creatinine [facility] Start: 01-29-2026 Annual PCP Team Chronic Disease Visit Annual PCP Team Chronic Disease Visit [facility] Start: 11-14-2025 Creatinine measurement Serum Creatinine [facility] Start: 11-08-2025 Annual PCP Team Chronic Disease Visit Annual PCP Team Chronic Disease Visit [facility] Start: 11-04-2025 Complete blood count Hemoglobin/Hematocrit [facility] Start: 11-04-2025 Creatinine measurement Serum Creatinine [facility] Start: 10-26-2025 End: 11-23-2025 Echocardiography [facility] Cardiology Routine Coronary artery disease involving mentasta coronary artery of mentasta heart without angina pectoris S/P coronary artery stent placement Expected: 10/26/2025 (Approximate), Expires: 11/23/2025 [facility] Work Phone: Comment on above: Expected: 10/26/2025 (Approximate), Expi res: 11/23/2025 Start: 10-18-2025 Hepatitis B surface antibody level LDL Cholesterol [facility] Start: 10-09-2025 Annual PCP Team Chronic Disease Visit Annual PCP Team Chronic Disease Visit [facility] Start: 10-06-2025 Creatinine measurement Serum Creatinine [facility] Start: 10-04-2025 Hepatitis B screening Urine Albumin:Creatinine Ratio [facility] Start: 09-29-2025 Hemoglobin A1c measurement HbA1C [facility] Start: 09-04-2025 Hemoglobin A1c measurement HbA1C [facility] Start: 09-04-2025 End: 09-04-2025 Patient encounter procedure 09/04/2025 11:00 AM EST [facility] [address] [place] [address] Eduin Coleman, HEALTH INFORMATION ASSISTANT.PARK ACTIVITIES COORDINATOR [address] [place] [address] 6MO hfRef SRS [facility] Comment on above: 6MO hfRef SRS Start: 08-22-2025 Annual PCP Team Chronic Disease Visit Annual PCP Team Chronic Disease Visit [facility] Start: 07-25-2025 Annual PCP Team Chronic Disease Visit Annual PCP Team Chronic Disease Visit [facility] Start: 07-25-2025 BP Controlled (<130/80) BP Controlled (<130/80) [facility] inic Start: 07-12-2025 BP Controlled (<130/80) BP Controlled (<130/80) [facility] Start: 06-27-2025 Annual PCP Team Chronic Disease Visit Annual PCP Team Chronic Disease Visit [facility] Start: 06-27-2025 BP Controlled (<130/80) BP Controlled (<130/80) [facility] in Start: 06-27-2025 Urine microalbumin profile DTaP,Tdap,Td Vaccine (1 - Tdap) [facility] Comment on above: Postponed from 12/26/1970 (Declined at t his time) Start: 06-26-2025 End: 06-26-2025 Patient encounter procedure 06/26/2025 10:45 AM EDT Office Visit Plastic Surgery [address] [place] [phone] Thierry Rush MD [address] [place] [address] post op r/s from Plastic Surgery Comment on above: post op r/s from Start: 05-22-2025 End: 05-22-2025 Patient encounter procedure 05/22/2025 2:45 PM EDT Office Visit Plastic Surgery [address] [place] [phone] Thierry Rush MD [address] [place] [address] Post Op -3 cc Plastic Surgery Comment on above: Post Op -3 cc Start: 05-21-2025 Influenza vaccination Influenza Vaccine (#1) [facility] Start: 05-18-2025 End: 05-18-2025 Patient encounter procedure 05/18/2025 1:30 PM EDT Office Visit Plastic Surgery [address] [place] [phone] Loan Kent PALuly [address] [place], [place] [id number] Post Op -3 cc Plastic Surgery Comment on above: Post Op -3 cc Start: 05-16-2025 End: 05-16-2025 Patient encounter procedure 05/16/2025 1:00 PM EDT Office Visit [facility] [address] [place] [address] Elda Chowdhury APRN.PARK ACTIVITIES COORDINATOR [address] [place] [address] Void Trial, facility to remove cath in AM [facility] Comment on above: Void Trial, facility to remove cath in A M Start: 04-27-2025 End: 04-27-2025 Patient encounter procedure 04/27/2025 2:00 PM EDT Office Visit Plastic Surgery [address] [phone] Loan Kent PADonitaC [address] [id number] Post Op - 2 cc Plastic Surgery Comment on above: Post Op - 2 cc Start: 04-17-2025 Hepatitis B screening Urine Albumin:Creatinine Ratio [facility] Start: 04-17-2025 Hepatitis B surface antibody level LDL Cholesterol [facility] Start: 04-13-2025 End: 04-13-2025 Patient encounter procedure Plastic Surgery Comment on above: Post Op -1 cc Start: 04-05-2025 End: 04-05-2025 Adjt tis trnsfr/reargmt defec ea addl 30 sqcm [facility] Start: 04-05-2025 End: 04-05-2025 Admission to same day surgery center 04/05/2025 8:00 AM EDT - 04/05/2025 12:45 PM EDT Surgery [address] [address] Thierry Rush MD [address] [facility] [address] [place] [address] ADJACENT TISSUE TRANSFER / REARRANGEMENT LOWER EXTREMITY ADD'L < OR =30 SQCM SQCM [facility] Comment on above: ADJACENT TISSUE TRANSFER / REARRANGEMENT LOWER EXTREMITY ADD'L < OR =30 SQCM SQCM Start: 04-05-2025 End: 04-05-2025 Anesthesia consultation 04/05/2025 8:00 AM EDT Anesthesia Event [address] [address] Brissa Cruz MD [address] [place] [address] [facility] Start: 04-05-2025 End: 04-05-2025 Implantation nerve end bone/muscle [facility] Start: 04-05-2025 Subsequent hospital visit by physician 04/05/2025 8:00 AM EDT Hospital Encounter [address] [address] Thierry Rush MD [address] [facility] [address] [place] [address] Neuropathic pain [M79.2] [facility] Comment on above: Neuropathic pain [M79.2] Start: 04-01-2025 Hemoglobin A1c measurement HbA1C [facility] Start: 03-29-2025 End: 03-29-2025 ambulatory Pre Surgical Testing Comment on above: ADJACENT TISSUE TRANSFER / REARRANGEMENT LOWER EXTREMITY ADD'L < OR =30 SQCM SQCM Start: 03-27-2025 Annual PCP Team Chronic Disease Visit Annual PCP Team Chronic Disease Visit [facility] Start: 03-20-2025 End: 06-19-2025 CBC panel - Blood by Automated count COMPLETE BLOOD COUNT Lab Routine Anemia, unspecified type Expected: 03/20/2025, Expires: 06/19/2025 [facility] Comment on above: Expected: 03/20/2025, Expires: Start: 03-20-2025 End: 06-19-2025 Comprehensive metabolic 2000 panel - Serum or Plasma COMPREHENSIVE METABOLIC PANEL Lab Routine Type 2 diabetes mellitus with diabetic peripheral angiopathy without gangrene, with long-term current use of insulin (HCC) Primary hypertension Expected: 03/20/2025, Expires: 06/19/2025 [facility] Comment on above: Expected: 03/20/2025, Expires: Start: 03-20-2025 End: 06-19-2025 Hemoglobin A1c in Blood HEMOGLOBIN A1C Lab Routine Type 2 diabetes mellitus with diabetic peripheral angiopathy without gangrene, with long-term current use of insulin (HCC) Expected: 03/20/2025, Expires: 06/19/2025 [facility] Comment on above: Expected: 03/20/2025, Expires: Start: 03-20-2025 End: 06-19-2025 Lipid 1996 panel - Serum or Plasma LIPID PANEL, FASTING Lab Routine Coronary arteriosclerosis Mixed hyperlipidemia Expected: 03/20/2025, Expires: 06/19/2025 [facility] Work Phone: Comment on above: Expected: 03/20/2025, Expires: Start: 03-20-2025 End: 03-20-2025 Patient encounter procedure 03/20/2025 11:00 AM EDT Office Visit Plastic Surgery [address] [phone] Thierry Rush MD [address] [facility] [address] [place] [address] Pre Op (sx date 04/05) cc Plastic Surgery Comment on above: Pre Op (sx date 04/05) cc Start: 03-05-2025 End: 03-05-2025 Patient encounter procedure 03/05/2025 1:20 PM EDT Office Visit Family Practice [address] [place], [place] [id number] Lyubov Hernandez APRN.PARK ACTIVITIES COORDINATOR [address] [address] Hospital follow up [facility] Comment on above: Hospital follow up Start: 02-28-2025 End: 02-28-2025 Patient encounter procedure Hernández [facility] Comment on above: 3 month follow up 3 month follow up jt Start: 02-27-2025 End: 02-27-2025 Patient encounter procedure 02/27/2025 1:30 PM EDT Office Visit [facility] [address] [place] [address] Eduin Coleman APRN.PARK ACTIVITIES COORDINATOR [address] [place] [address] 3 month follow up [facility] Comment on above: 3 month follow up Start: 01-29-2025 End: 01-29-2025 Patient encounter procedure 01/29/2025 10:00 AM EDT Office Visit Family [address] [place], [place] [phone] Paulina Severino MD [address] [place] [address] [place] [address] three month follow up [facility] Comment on above: three month follow up Start: 01-15-2025 End: 01-15-2025 Patient encounter procedure 01/15/2025 1:00 PM EDT Office Visit [facility] [address] [place] [address] Davin Moran MD [address] [address] 6 month follow up [facility] Comment on above: 6 month follow up Start: 2024 End: 2024 Patient encounter procedure 2024 10:40 AM EDT Office Visit Kidney Medicine [address] [place] [address] [place] [address] [place] [address] [facility] Comment on above: CKD Start: 12-26-2024 Covid-19 Vaccine () Covid-19 Vaccine () [facility] Start: 12-07-2024 End: 12-07-2024 Adjt tis trnsfr/reargmt defec ea addl 30 sqcm ADJACENT TISSUE TRANSFER / REARRANGEMENT LOWER EXTREMITY ADD'L < OR =30 SQCM SQCM Neuropathic pain 12/07/2024 8:00 AM EDT [facility] Start: 12-07-2024 End: 12-07-2024 Admission to same day surgery center 12/07/2024 8:00 AM EDT - 12/07/2024 12:45 PM EDT Surgery [facility] [address] [facility] [place] [address] Thierry Rush [address] [facility] [address] [place] [address] ADJACENT TISSUE TRANSFER / REARRANGEMENT LOWER EXTREMITY ADD'L < OR =30 SQCM [facility] Comment on above: ADJACENT TISSUE TRANSFER / REARRANGEMENT LOWER EXTREMITY ADD'L < OR =30 SQCM SQCM Start: 12-07-2024 End: 12-07-2024 Implantation nerve end bone/muscle IMPLANTATION NERVE END INTO BONE OR MUSCLE Neuropathic pain 12/07/2024 8:00 AM EDT [place] [facility] Start: 12-07-2024 Subsequent hospital visit by physician 12/07/2024 8:00 AM EDT Hospital Encounter [facility] [address] [facility] [place] [address] Thierry Rush MD [address] [facility] [address] [place] [address] Neuropathic pain [M79.2] [facility] Comment on above: Neuropathic pain [M79.2] Start: 12-01-2024 End: 12-01-2024 ambulatory 12/01/2024 11:20 AM EDT PAT Pre Surgical Testing [address] [facility] [place] [address] 1. ADJACENT TISSUE TRANSFER / REARRANGEMENT LOWER EXTREMITY ADD'L < OR =30 SQCM SQCM Pre Surgical Testing Comment on above: 1. ADJACENT TISSUE TRANSFER / REARRANGEM ENT LOWER EXTREMITY ADD'L < OR =30 SQCM SQCM Start: 11-23-2024 End: 11-23-2024 Patient encounter procedure [facility] [place] Comment on above: 6 month follow up f/u per vy Miles. vascular surg assessment EKG done 10/30/24 jt Start: 11-08-2024 End: 11-08-2024 Patient encounter procedure 11/08/2024 2:40 PM EST Office Visit Family Practice [address] [facility] [address] Lyubov Hernandez, HEALTH INFORMATION ASSISTANT.PARK ACTIVITIES COORDINATOR [address] [facility] [address] [place], [place] [address] hospital follow up [facility] Comment on above: hospital follow up Start: 10-20-2024 Annual PCP Team Chronic Disease Visit Annual PCP Team Chronic Disease Visit [facility] Start: 10-16-2024 End: 01-15-2025 Basic metabolic 2000 panel - Serum or Plasma BASIC METABOLIC PANEL Lab Routine Hyperkalemia Expected: 10/16/2024, Expires: 01/15/2025 [facility] Work Phone: Comment on above: Expected: 10/16/2024, Expires: Start: 10-16-2024 End: 10-16-2024 Results Only 10/16/2024 11:00 AM EST Results Only [facility] [address] [place] [address] 1 order [facility] Comment on above: 1 order Start: 09-27-2024 Hemoglobin A1c measurement HbA1C [facility] Start: 09-20-2024 Advance Directive Discussion Advance Directive Discussion [facility] Start: 09-20-2024 End: 10-20-2024 CBC panel - Blood by Automated count COMPLETE BLOOD COUNT Lab Routine Type 2 diabetes mellitus with diabetic neuropathy, with long-term current use of insulin (HCC) Expected: 09/20/2024, Expires: 10/20/2024 [facility] Comment on above: Expected: 09/20/2024, Expires: Start: 09-20-2024 End: 10-20-2024 Comprehensive metabolic 2000 panel - Serum or Plasma COMPREHENSIVE METABOLIC PANEL Lab Routine Type 2 diabetes mellitus with diabetic neuropathy, with long-term current use of insulin (HCC) Expected: 09/20/2024, Expires: 10/20/2024 [facility] Comment on above: Expected: 09/20/2024, Expires: 5 Start: 09-20-2024 End: 10-20-2024 Hemoglobin A1c in Blood HEMOGLOBIN A1C Lab Routine Type 2 diabetes mellitus with diabetic neuropathy, with long-term current use of insulin (HCC) Expected: 09/20/2024, Expires: 10/20/2024 [facility] Work Phone: Comment on above: Expected: 09/20/2024, Expires: 5 Start: 09-20-2024 Medicare Advantage Annual Wellness Visit Medicare [facility] Annual Wellness Visit [facility] Start: 08-22-2024 End: 08-22-2024 Patient encounter procedure 08/22/2024 11:00 AM EST Office Visit Family Practice [address] [place], [place] [phone] Lyubov Hernandez, HEALTH INFORMATION ASSISTANT.PARK ACTIVITIES COORDINATOR [address] [place] [id number] wellness exam Family Practice Comment on above: wellness exam Start: 08-20-2024 Subsequent hospital visit by physician 08/20/2024 Hospital Encounter [facility] [address] [place] [address] Thierry Rush MD [address] [place], [place] [address] Neuropathic pain [M79.2] [facility] Comment on above: Neuropathic pain [M79.2] Start: 07-28-2024 BP Controlled (<130/80) BP Controlled (<130/80) [facility] [place] Start: 07-25-2024 End: 07-25-2024 Patient encounter procedure 07/25/2024 1:40 PM EST Office Visit Family Practice [address] [place] [phone] Lyubov Hernandez, HEALTH INFORMATION ASSISTANT.PARK ACTIVITIES COORDINATOR [address] [place] [id number] follow up diabetes Family Practice Comment on above: follow up diabetes Start: 07-19-2024 Annual PCP Team Chronic Disease Visit Annual PCP Team Chronic Disease Visit [facility] Start: 07-19-2024 End: 07-19-2024 Patient encounter procedure 07/19/2024 12:00 PM EDT Appointment [facility] [address] [place] [address] HFrEF (heart failure with reduced ejection fraction) ([facility]) [I50.20]; Atherosclerosis of mentasta coronary artery of mentasta heart without angina pectoris [I25.10]; Mixed hyperlipidemia [E78.2]; PAD (peripheral artery disease) ([facility]) [I73.9]; Essential (primary) hypertension [I10] [facility] Comment on above: HFrEF (heart failure with reduced ejecti on fraction) (HCC) [I50.20]; Atherosclerosis of mentasta coronary artery of mentasta heart without angina pectoris [I25.10]; Mixed hyperlipidemia [E78.2]; PAD (peripheral artery disease) (HCC) [I73.9]; Essential (primary) hypertension [I10] Start: 07-12-2024 End: 07-12-2024 Patient encounter procedure [facility] Comment on above: Overude 1 year f/u 20 month f/u jt Start: 07-11-2024 End: 07-11-2024 Patient encounter procedure Plastic Surgery Comment on above: maría Birminghamwrcristian Start: 06-27-2024 Hemoglobin A1c measurement HbA1C [facility] Start: 06-27-2024 End: 06-27-2024 Patient encounter procedure [facility] Comment on above: 3m follow up Start: 06-06-2024 End: 06-06-2024 Patient encounter procedure 06/06/2024 1:00 PM EDT Office Visit [facility] [address] [place] [address] Elizabeth Ball, INEZ.PARK ACTIVITIES COORDINATOR [address] [facility] [address] [address] [place] [phone] 6 Month F/up -Stump Check and carotid US 05/24/24 [facility] Comment on above: 6 Month F/up -Stump Check and carotid US 05/24/24 Start: 05-26-2024 Colonoscopy COLONOSCOPY [facility] Start: 05-26-2024 COLORECTAL CANCER SCREENING COLORECTAL CANCER SCREENING [facility] Start: 05-26-2024 Screening for malignant neoplasm of colon [facility] Start: 05-24-2024 End: 05-24-2024 Patient encounter procedure 05/24/2024 10:15 AM EDT Appointment [facility] [address] [place] [address] Carotid stenosis, asymptomatic, bilateral [I65.23] [facility] Comment on above: Carotid stenosis, asymptomatic, bilatera l [I65.23] Start: 05-21-2024 Covid-19 Vaccine ( season) Covid-19 Vaccine () [facility] Start: 05-21-2024 Covid-19 Vaccine () Covid-19 Vaccine () [facility] Start: 05-21-2024 Influenza vaccination Influenza Vaccine (#1) [facility] Start: 04-26-2024 End: 07-26-2024 Potassium [Moles/volume] in Serum or Plasma POTASSIUM Lab Routine Hyperkalemia Expected: 04/26/2024, Expires: 07/26/2024 [facility] Work Phone: Comment on above: Expected: 04/26/2024, Expires: Start: 04-22-2024 ANNUAL PCP TEAM CHRONIC DISEASE VISIT ANNUAL PCP TEAM CHRONIC DISEASE VISIT [facility] Start: 03-27-2024 End: 06-26-2024 Basic metabolic 2000 panel - Serum or Plasma BASIC METABOLIC PANEL Lab Routine Type 2 diabetes mellitus with diabetic peripheral angiopathy without gangrene, with long-term current use of insulin (HCC) Expected: 03/27/2024, Expires: 06/26/2024 [facility] Comment on above: Expected: 03/27/2024, Expires: Start: 03-27-2024 End: 03-27-2024 Patient encounter procedure Family Practice Comment on above: MEDICARE WELLNESS Start: 03-14-2024 End: 06-13-2024 Hemoglobin A1c in Blood HEMOGLOBIN A1C Lab Routine Type 2 diabetes mellitus (HCC) Expected: 03/14/2024, Expires: 06/13/2024 [facility] Comment on above: Expected: 03/14/2024, Expires: Start: 03-14-2024 End: 06-13-2024 Lipid 1996 panel - Serum or Plasma LIPID PANEL BASIC Lab Routine Hyperlipidemia Expected: 03/14/2024, Expires: 06/13/2024 [facility] Comment on above: Expected: 03/14/2024, Expires: Start: 03-14-2024 End: 06-13-2024 Microalbumin/Creatinine [Mass Ratio] in Urine ALBUMIN/CREATININE RATIO, URINE Lab Routine Type 2 diabetes mellitus (HCC) Expected: 03/14/2024, Expires: 06/13/2024 [facility] Work Phone: Comment on above: Expected: 03/14/2024, Expires: Start: 02-25-2024 ANNUAL PCP TEAM CHRONIC DISEASE VISIT ANNUAL PCP TEAM CHRONIC DISEASE VISIT [facility] Start: 02-25-2024 Hepatitis B surface antibody level LDL CHOLESTEROL [facility] Start: 02-18-2024 Screening for malignant neoplasm of colon Cologuard (FIT-DNA) [facility] Start: 12-24-2023 ANNUAL PCP TEAM CHRONIC DISEASE VISIT ANNUAL PCP TEAM CHRONIC DISEASE VISIT [facility] Start: 12-16-2023 BP CONTROLLED (<130/80) BP CONTROLLED (<130/80) [facility] in Start: 11-29-2023 COLORECTAL CANCER SCREENING COLORECTAL CANCER SCREENING [facility] Start: 11-29-2023 FECAL OCCULT BLOOD FECAL OCCULT BLOOD [facility] Start: 11-29-2023 Screening for malignant neoplasm of colon Fecal Occult Blood [facility] Start: 11-26-2023 Glaucoma screening Dilated Retinal Exam [facility] Start: 11-26-2023 Hepatitis C antibody, confirmatory test DILATED RETINAL EXAM [facility] Start: 11-24-2023 ANNUAL PCP TEAM CHRONIC DISEASE VISIT ANNUAL PCP TEAM CHRONIC DISEASE VISIT [facility] Start: 11-18-2023 Covid-19 Vaccine () Covid-19 Vaccine () [facility] Start: 10-16-2023 Hemoglobin A1c measurement HbA1C [facility] Start: 10-16-2023 Hemoglobin A1c/Hemoglobin.total in Blood HbA1C [facility] Start: 09-20-2023 Advance Directive Discussion Advance Directive Discussion [facility] Start: 09-20-2023 Behavioral Health Screening Behavioral Health Screening [facility] Start: 09-20-2023 Depression Assessment Depression Assessment [facility] Start: 08-06-2023 ANNUAL PCP TEAM CHRONIC DISEASE VISIT ANNUAL PCP TEAM CHRONIC DISEASE VISIT [facility] Start: 08-06-2023 BP CONTROLLED (<130/80) BP CONTROLLED (<130/80) [facility] Start: 08-06-2023 Urine microalbumin profile [facility] Comment on above: Postponed from 12/26/1970 (Declined at t his time) Start: 07-23-2023 Hemoglobin A1c/Hemoglobin.total in Blood HBA1C [facility] Start: 07-21-2023 End: 10-20-2023 Cobalamin (Vitamin B12) [Mass/volume] in Serum or Plasma VITAMIN B12 BLOOD Lab Routine Acute right-sided low back pain with right-sided sciatica Spinal stenosis of lumbar region with neurogenic claudication Expected: 07/21/2023, Expires: 10/20/2023 [facility] Work Phone: Comment on above: Expected: 07/21/2023, Expires: 4 Start: 07-21-2023 End: 10-20-2023 Creatine kinase [Enzymatic activity/volume] in Serum or Plasma CK CREATINE KINASE Lab Routine Acute right-sided low back pain with right-sided sciatica Spinal stenosis of lumbar region with neurogenic claudication Expected: 07/21/2023, Expires: 10/20/2023 [facility] Work Phone: Comment on above: Expected: 07/21/2023, Expires: 4 Start: 07-21-2023 End: 10-20-2023 Magnesium [Mass/volume] in Serum or Plasma MAGNESIUM BLD Lab Routine Acute right-sided low back pain with right-sided sciatica Spinal stenosis of lumbar region with neurogenic claudication Expected: 07/21/2023, Expires: 10/20/2023 [facility] Work Phone: Comment on above: Expected: 07/21/2023, Expires: 4 Start: 07-21-2023 End: 10-20-2023 Methylmalonate [Moles/volume] in Serum or Plasma METHYLMALONIC ACID Lab Routine Acute right-sided low back pain with right-sided sciatica Expected: 07/21/2023, Expires: 10/20/2023 [facility] Work Phone: Comment on above: Expected: 07/21/2023, Expires: Start: 07-21-2023 End: 10-20-2023 Thyrotropin [Units/volume] in Serum or Plasma TSH BLD Lab Routine Acute right-sided low back pain with right-sided sciatica Spinal stenosis of lumbar region with neurogenic claudication Expected: 07/21/2023, Expires: 10/20/2023 [facility] Work Phone: Comment on above: Expected: 07/21/2023, Expires: Start: 07-21-2023 End: 10-20-2023 VITAMIN B1 (THIAMINE), WHOLE BLOOD VITAMIN B1 (THIAMINE), WHOLE BLOOD Lab Routine Acute right-sided low back pain with right-sided sciatica Spinal stenosis of lumbar region with neurogenic claudication Expected: 07/21/2023, Expires: 10/20/2023 [facility] Work Phone: Comment on above: Expected: 07/21/2023, Expires: 4 Start: 07-19-2023 End: 10-18-2023 Basic metabolic 2000 panel - Serum or Plasma BASIC METABOLIC PNL Lab Routine Encounter for immunization Expected: 07/19/2023, Expires: 10/18/2023 [facility] Work Phone: Comment on above: Expected: 07/19/2023, Expires: 4 Start: 07-19-2023 End: 10-18-2023 CBC panel - Blood by Automated count CBC Lab Routine Encounter for immunization Expected: 07/19/2023, Expires: 10/18/2023 [facility] Work Phone: Comment on above: Expected: 07/19/2023, Expires: 4 Start: 07-10-2023 ANNUAL PCP TEAM CHRONIC DISEASE VISIT ANNUAL PCP TEAM CHRONIC DISEASE VISIT [facility] Start: 07-10-2023 BP CONTROLLED (<130/80) BP CONTROLLED (<130/80) [facility] [place] Start: 07-03-2023 Hepatitis B screening URINE ALBUMIN:CREATININE RATIO [facility] Start: 07-03-2023 Hepatitis B surface antibody level LDL CHOLESTEROL [facility] Start: 06-17-2023 Covid-19 Vaccine () Covid-19 Vaccine () [facility] Start: 06-17-2023 End: 01-14-2024 Non-invasive physiologic study extremity 3 levls US ARTERIAL PVR LOWER Radiology Routine PVD (peripheral vascular disease) (HCC) Expected: 06/17/2023 (Approximate), Expires: 01/14/2024 [facility] Work Phone: Comment on above: Expected: 06/17/2023 (Approximate), Expi res: 01/14/2024 Start: 05-27-2023 Hemoglobin A1c/Hemoglobin.total in Blood HBA1C [facility] Start: 05-21-2023 Influenza vaccination [facility] Start: 04-25-2023 Hepatitis B screening URINE ALBUMIN:CREATININE RATIO [facility] Start: 04-20-2023 BP CONTROLLED (<130/80) BP CONTROLLED (<130/80) [facility] [place] Start: 04-14-2023 Adult depression screening assessment DEPRESSION SCREENING [facility] Start: 03-27-2023 ANNUAL PCP TEAM CHRONIC DISEASE VISIT ANNUAL PCP TEAM CHRONIC DISEASE VISIT [facility] Start: 03-13-2023 ANNUAL PCP TEAM CHRONIC DISEASE VISIT ANNUAL PCP TEAM CHRONIC DISEASE VISIT [facility] Start: 02-23-2023 Hemoglobin A1c/Hemoglobin.total in Blood HBA1C [facility] Start: 12-30-2022 3 comp foot exam completed DIABETIC FOOT EXAM [facility] Start: 12-30-2022 BP CONTROLLED (<130/80) BP CONTROLLED (<130/80) [facility] [place] Start: 12-30-2022 Diabetic foot examination Diabetic Foot Exam [facility] Start: 12-22-2022 ANNUAL PCP TEAM CHRONIC DISEASE VISIT ANNUAL PCP TEAM CHRONIC DISEASE VISIT [facility] Start: 12-15-2022 End: 07-17-2023 Non-invasive physiologic study extremity 3 levls US ARTERIAL PVR LOWER Radiology Routine PVD (peripheral vascular disease) (HCC) S/P AKA (above knee amputation), left (HCC) S/P vascular bypass Expected: 12/15/2022, Expires: 07/17/2023 [facility] Work Phone: Comment on above: Expected: 12/15/2022, Expires: 3 Start: 11-10-2022 COVID-19 VACCINE (6 - Pfizer series) COVID-19 VACCINE (6 - Pfizer series) [facility] Start: 11-06-2022 Hemoglobin A1c/Hemoglobin.total in Blood HBA1C [facility] Start: 09-20-2022 ADVANCE DIRECTIVE DISCUSSION ADVANCE DIRECTIVE DISCUSSION [facility] Start: 09-20-2022 DEPRESSION ASSESSMENT DEPRESSION ASSESSMENT [facility] Start: 07-04-2022 Colonoscopy COLONOSCOPY [facility] Start: 06-24-2022 End: 08-24-2022 ALBUMIN/CREAT RATIO RND UR ALBUMIN/CREAT RATIO RND UR Lab Routine Type 2 diabetes mellitus (HCC) Expected: 06/24/2022, Expires: 08/24/2022 [facility] Work Phone: Comment on above: Expected: 06/24/2022, Expires: 2 Start: 06-24-2022 End: 08-24-2022 Lipid 1996 panel - Serum or Plasma LIPID PANEL BASIC Lab Routine Hyperlipidemia Expected: 06/24/2022, Expires: 08/24/2022 [facility] Work Phone: Comment on above: Expected: 06/24/2022, Expires: 2 Start: 06-24-2022 End: 08-24-2022 SCHEDULE LAB TESTING SCHEDULE LAB TESTING Lab Routine Expected: 06/24/2022, Expires: 08/24/2022 [facility] Work Phone: Comment on above: Expected: 06/24/2022, Expires: 2 Start: 05-21-2022 Influenza vaccination INFLUENZA (#1) [facility] Start: 04-09-2022 Hepatitis B screening URINE ALBUMIN:CREATININE RATIO [facility] Start: 04-09-2022 Hepatitis B surface antibody level LDL CHOLESTEROL [facility] Start: 03-31-2022 Hemoglobin A1c/Hemoglobin.total in Blood HBA1C [facility] Start: 02-19-2022 COVID-19 VACCINE (5 - Booster for Pfizer series) COVID-19 VACCINE (5 - Booster for Pfizer series) [facility] Start: 12-17-2021 Hemoglobin A1c/Hemoglobin.total in Blood HBA1C [facility] Start: 12-11-2021 Hepatitis C antibody, confirmatory test DILATED RETINAL EXAM [facility] Start: 10-04-2021 3 comp foot exam completed DIABETIC FOOT EXAM [facility] Start: 09-20-2021 ADVANCE DIRECTIVE DISCUSSION ADVANCE DIRECTIVE DISCUSSION [facility] Start: 09-20-2021 DEPRESSION ASSESSMENT DEPRESSION ASSESSMENT [facility] Start: 12-26-2016 PNEUMOVAX AGE 65 AND OVER WITH 5YR LOOKBACK (#1) PNEUMOVAX AGE 65 AND OVER WITH 5YR LOOKBACK (#1) [facility] Start: 2011 Hepatitis B Vaccine (1 of 3 - Risk 3-dose series) Hepatitis B Vaccine (1 of 3 - Risk 3-dose series) [facility] Start: 2011 RSV Vaccine (1 - 1-dose 60+ series) RSV Vaccine (1 - 1-dose 60+ series) [facility] Start: 2011 RSV Vaccine (1 - Risk 60-74 years 1-dose series) RSV Vaccine (1 - Risk 60-74 years 1-dose series) [facility] Start: 12-26-2001 SHINGRIX VACCINE (1 of 2) SHINGRIX VACCINE (1 of 2) [facility] Start: 12-26-1996 COLOGUARD (FIT-DNA) COLOGUARD (FIT-DNA) [facility] Start: 12-26-1996 Colonoscopy COLONOSCOPY [facility] Start: 12-26-1996 COLORECTAL CANCER SCREENING COLORECTAL CANCER SCREENING [facility] Start: 12-26-[address] COLONOGRAPHY [facility] Start: 12-26-1996 FECAL OCCULT BLOOD FECAL OCCULT BLOOD [facility] Start: 12-26-1996 Screening for malignant neoplasm of colon [facility] Start: 12-26-1996 SIGMOIDOSCOPY SIGMOIDOSCOPY [facility] Start: 12-26-1970 Urine microalbumin profile [facility] Start: 12-26-1969 Anxiety Screening Anxiety Screening [facility] Start: 12-26-1969 BP CONTROLLED (<130/80) BP CONTROLLED (<130/80) [facility] Start: 12-26-1969 Depression Screening Depression Screening [facility] Start: 12-26-1969 HEPATITIS C SCREENING HEPATITIS C SCREENING [facility] Start: 12-26-1969 Hepatitis C screening Hepatitis C Screening [facility] Start: 1963 Adult depression screening assessment DEPRESSION SCREENING [facility] Start: 12-26-1957 PNEUMOCOCCAL: 65+ (1 - PCV) PNEUMOCOCCAL: 65+ (1 - PCV) [facility] Adjt tis trnsfr/rear gmt defec ea addl 30 sqcm ADJACENT TISSUE TRANSFER / REARRANGEMENT LOWER EXTREMITY ADD'L < OR =30 SQCM SQCM Neuropathic pain [place] OR CBC panel - Blood by Automated count CBC Lab Routine Anemia, unspecified type Ordered: 08/06/2022 [facility] Work Phone: Comment on above: Ordered: 08/06/2022 CBC panel - Blood by Automated count CBC Lab Routine Type 2 diabetes mellitus with diabetic peripheral angiopathy without gangrene, with long-term current use of insulin (HCC) 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) Ordered: 02/24/2023 [facility] Work Phone: Comment on above: Ordered: 02/24/2023 End: 01-27-2024 COLONOSCOPY DIAGNOSTIC COLONOSCOPY DIAGNOSTIC Endoscopy Routine Positive FIT (fecal immunochemical test) History of colonic polyps 1 Occurrences starting 01/26/2023 until 01/27/2024 [facility] Work Phone: Comment on above: 1 Occurrences starting 01/26/2023 until 01/27/2024 Comprehensive metabo lic 2000 panel - Serum or Plasma COMP METABOLIC PANEL Lab Routine Type 2 diabetes mellitus with diabetic peripheral angiopathy without gangrene, with long-term current use of insulin (HCC) Primary hypertension Ordered: 08/06/2022 [facility] Work Phone: Comment on above: Ordered: 08/06/2022 Comprehensive metabo lic 2000 panel - Serum or Plasma COMP METABOLIC PANEL Lab Routine Type 2 diabetes mellitus with diabetic peripheral angiopathy without gangrene, with long-term current use of insulin (HCC) 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) Ordered: 02/24/2023 [facility] Work Phone: Comment on above: Ordered: 02/24/2023 End: 05-21-2023 Ct angiography chest w/contrast/noncontrast CTA CHEST (GATED) W IVCON Radiology ROGER Disorder of artery or arteriole (HCC) 1 Occurrences starting 04/21/2022 until 05/21/2023 [facility] Work Phone: Comment on above: 1 Occurrences starting 04/21/2022 until 05/21/2023 End: 05-21-2023 Cta abdl aorta&bi iliofem w/contrast&postp CTA ABD/PEL LOWER EXTREM W IVCON Radiology ROGER Atherosclerosis of aorta (HCC) Peripheral vascular disease (HCC) Diminished pulses in lower extremity 1 Occurrences starting 04/21/2022 until 05/21/2023 [facility] Work Phone: Comment on above: 1 Occurrences starting 04/21/2022 until 05/21/2023 End: 07-28-2024 Cta abdl aorta&bi iliofem w/contrast&postp CTA ABD/PEL LOWER EXTREM W IVCON Radiology Routine PVD (peripheral vascular disease) (HCC) Aortoiliac occlusive disease (HCC) Open wound of fourth toe of right foot, initial encounter Open wound of lesser toe of right foot Atherosclerosis of aorta (HCC) Diminished pulses in lower extremity 1 Occurrences starting 06/29/2023 until 07/28/2024 [facility] Work Phone: Comment on above: 1 Occurrences starting 06/29/2023 until 07/28/2024 End: 08-24-2022 Duplex scan extracranial art compl bi study [facility] Work Phone: Comment on above: 1 Occurrences starting 08/24/2022 until 08/24/2022 ECG COMPLETE ECG COMPLETE ECG Routine Tachycardia Ordered: 07/19/2023 [facility] Work Phone: Comment on above: Ordered: 07/19/2023 End: 07-12-2025 Echocardiography ECHO Cardiology Routine HFrEF (heart failure with reduced ejection fraction) (HCC) Atherosclerosis of mentasta coronary artery of mentasta heart without angina pectoris Mixed hyperlipidemia PAD (peripheral artery disease) (HCC) Hypertension 1 Occurrences starting 07/12/2024 until 07/12/2025 [facility] Work Phone: Comment on above: 1 Occurrences starting 07/12/2024 until 07/12/2025 HB A1C B/O HB A1C B/O Lab R outine Type 2 diabetes mellitus with diabetic peripheral angiopathy without gangrene, with long-term current use of insulin (HCC) Ordered: 03/27/2024 [facility] Work Phone: Comment on above: Ordered: 03/27/2024 HB A1C B/O HB A1C B/O Lab R outine Type 2 diabetes mellitus with diabetic peripheral angiopathy without gangrene, with long-term current use of insulin (HCC) Ordered: 06/27/2024 [facility] Work Phone: Comment on above: Ordered: 06/27/2024 HB A1C B/O HB A1C B/O Lab R outine Type 2 diabetes mellitus with diabetic neuropathy, with long-term current use of insulin ([facility]) Ordered: 03/05/2025 [facility] Work Phone: Comment on above: Ordered: 03/05/2025 Hemoglobin A1c in Blood HGB A1C Lab Routine Type 2 diabetes mellitus with diabetic peripheral angiopathy without gangrene, with long-term current use of insulin ([facility]) Ordered: 08/06/2022 [facility] Work Phone: Comment on above: Ordered: 08/06/2022 Hemoglobin A1c in Blood HGB A1C Lab Routine Type 2 diabetes mellitus with diabetic peripheral angiopathy without gangrene, with long-term current use of insulin ([facility]) Ordered: 02/24/2023 [facility] Work Phone: Comment on above: Ordered: 02/24/2023 Implantation nerve e nd bone/muscle IMPLANTATION NERVE END INTO BONE OR MUSCLE Neuropathic pain [place] OR Iron and Iron bindin g capacity panel - Serum or Plasma IRON + TIBC Lab Routine Anemia, unspecified type Ordered: 08/06/2022 [facility] Work Phone: Comment on above: Ordered: 08/06/2022 Lipid 1996 panel - S edy or Plasma LIPID PANEL BASIC Lab Routine Type 2 diabetes mellitus with diabetic peripheral angiopathy without gangrene, with long-term current use of insulin (HCC) 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) Ordered: 02/24/2023 [facility] Work Phone: Comment on above: Ordered: 02/24/2023 End: 03-22-2023 Mri spinal canal lumbar w/o contrast material MRI LUMBAR SPINE WO IVCON Radiology Routine Spinal stenosis of lumbar region with neurogenic claudication 1 Occurrences starting 02/20/2022 until 03/22/2023 [facility] Work Phone: Comment on above: 1 Occurrences starting 02/20/2022 until 03/22/2023 End: 05-14-2023 Mri spinal canal lumbar w/o contrast material MRI LUMBAR SPINE WO IVCON Radiology STAT Spinal stenosis of lumbar region with neurogenic claudication 1 Occurrences starting 04/14/2022 until 05/14/2023 [facility] Work Phone: Comment on above: 1 Occurrences starting 04/14/2022 until 05/14/2023 PT PLAN OF CARE CERTIFICATION PT PLAN OF CARE CERTIFICATION Procedures Routine Acute right-sided low back pain with right-sided sciatica Ordered: 01/16/2022 [facility] Work Phone: Comment on above: Ordered: 01/16/2022 PT PLAN OF CARE CERTIFICATION PT PLAN OF CARE CERTIFICATION Procedures Routine Difficulty walking Weakness of both lower extremities Ordered: 11/03/2022 [facility] Work Phone: Comment on above: Ordered: 11/03/2022 PT PLAN OF CARE CERTIFICATION PT PLAN OF CARE CERTIFICATION Procedures Routine Difficulty walking Weakness of both lower extremities Ordered: 03/04/2023 [facility] Work Phone: Comment on above: Ordered: 03/04/2023 PT PLAN OF CARE CERTIFICATION PT PLAN OF CARE CERTIFICATION Procedures Routine Difficulty walking Weakness of both lower extremities Ordered: 05/06/2023 [facility] Work Phone: Comment on above: Ordered: 05/06/2023 End: 09-16-2024 Radiologic exam chest 2 views XR CHEST 2V FRONTAL/LAT Radiology Routine 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) 1 Occurrences starting 08/18/2023 until 09/16/2024 [facility] Work Phone: Comment on above: 1 Occurrences starting 08/18/2023 until 09/16/2024 SPINE INTERVENTION PROCEDURE SPINE INTERVENTION PROCEDURE Procedures Routine Acute right-sided low back pain with right-sided sciatica Spinal stenosis of lumbar region with neurogenic claudication Ordered: 06/09/2023 [facility] Work Phone: Comment on above: Ordered: 06/09/2023 SURGICAL PATHOLOGY [facility] Work Phone: Comment on above: Release Upon Ordering for 1 Occurrences starting 05/26/2023, 1 completed Thyrotropin [Units/volume] in Serum or Plasma TSH BLD Lab Routine Type 2 diabetes mellitus with diabetic peripheral angiopathy without gangrene, with long-term current use of insulin ([facility]) Ordered: 02/24/2023 [facility] Work Phone: Comment on above: Ordered: 02/24/2023 US Carotid arteries - bilateral [facility] Work Phone: Comment on above: Ordered: 04/03/2024 US Carotid arteries - bilateral US CAROTID BILATERAL Radiology Routine Carotid stenosis, asymptomatic, bilateral History of bilateral carotid endarterectomy Ordered: 05/07/2025 [facility] Work Phone: Comment on above: Ordered: 05/07/2025 WOUND HBO TREATMENT WOUND HBO TR EATMENT Procedures Routine 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) Gangrene of toe of right foot (HCC) Type 2 diabetes mellitus with foot ulcer (CODE) (HCC) Peripheral vascular disease, unspecified (HCC) Ordered: 08/18/2023 [facility] Work Phone: Comment on above: Ordered: 08/18/2023 End: 08-14-2024 XR FEMUR GENERAL 2V AP/LAT LEFT XR FEMUR GENERAL 2V AP/LAT LEFT Radiology Routine Abnormal radiographic examination 1 Occurrences starting 07/16/2023 until 08/14/2024 [facility] Work Phone: Comment on above: 1 Occurrences starting 07/16/2023 until 08/14/2024 XR FEMUR GENERAL 2V AP/LAT LEFT XR FEMUR GENERAL 2V AP/LAT LEFT Radiology Routine Abnormal radiographic examination 07/16/2023 11:28 AM EDT [facility] Work Phone: End: 08-14-2024 XR FOOT GENERAL 3V AP/LAT/OBL RIGHT XR FOOT GENERAL 3V AP/LAT/OBL RIGHT Radiology Routine 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) 1 Occurrences starting 07/16/2023 until 08/14/2024 [facility] Work Phone: Comment on above: 1 Occurrences starting 07/16/2023 until 08/14/2024 XR FOOT GENERAL 3V AP/LAT/OBL RIGHT XR FOOT GENERAL 3V AP/LAT/OBL RIGHT Radiology Routine 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) 07/16/2023 11:28 AM EDT [facility] Work Phone: [facility] Immunizations Immunization Date Immunization Notes Care Provider Giuliana duncan 06-27-2024 COVID-19 vaccine, ag e 12+ yr (PFIZER-BIONTECH COMIRNATY) Lyubov Hernandez HEALTH INFORMATION ASSISTANT.PARK ACTIVITIES COORDINATOR Work Phone: [facility] 06-27-2024 influenza, high dose seasonal, preservative-free Lyubov Hernandez HEALTH INFORMATION ASSISTANT.PARK ACTIVITIES COORDINATOR Work Phone: [facility] 06-27-2024 respiratory syncytia l virus (RSV) vaccine, adjuvanted (AREXVY) Lyubov Hernandez HEALTH INFORMATION ASSISTANT.PARK ACTIVITIES COORDINATOR Work Phone: [facility] 06-27-2024 influenza virus vacc ine, unspecified formulation Eduin Coleman HEALTH INFORMATION ASSISTANT.PARK ACTIVITIES COORDINATOR Work Phone: [facility] 07-19-2023 COVID-19 vaccine, ag e 12+ yr, season (PFIZER-BIONTECH) Paulina Severino MD Work Phone: [facility] 07-19-2023 influenza (HD-IIV4) vaccine, age 65+ yr, high dose, quadrivalent, PF (FLUZONE HIGH-DOSE) Paulina Severino MD Work Phone: [facility] 07-19-2023 influenza virus vacc ine, unspecified formulation Madonna Montiel RN [facility] 04-22-2023 COVID-19 vaccine, ag e 12+ yr, bivalent (PFIZER-BIONTECH) Paulina Severino MD Work Phone: [facility] 07-10-2022 COVID-19 booster vaccine, age 12+ yr, bivalent (PFIZER-BIONTECH) Paulina Severino MD Work Phone: [facility] 07-10-2022 influenza, high-dose , quadrivalent vaccine (FLUZONE HIGH DOSE QUADRIVALENT) Paulina Severino MD Work Phone: [facility] 07-10-2022 pneumococcal polysaccharide vaccine, 23 valent Paulina Severino MD Work Phone: [facility] 07-10-2022 influenza virus vacc ine, unspecified formulation Sandra Alba [facility] 12-25-2021 COVID-19 original vaccine, age 12+ yr, monovalent (PFIZER-BIONTECH - GREEN TOP) Paulina Severino MD Work Phone: [facility] 08-05-2021 zoster vaccine recombinant Paulina Severino MD Work Phone: [facility] 07-22-2021 COVID-19 original vaccine, age 12+ yr, monovalent (PFIZER-BIONTECH - PURPLE TOP) Paulina Severino MD Work Phone: [facility] 06-04-2021 influenza, high-dose , quadrivalent vaccine (FLUZONE HIGH DOSE QUADRIVALENT) Paulina Severino MD Work Phone: [facility] 06-04-2021 zoster vaccine recombinant Paulina Severino MD Work Phone: [facility] 12-16-2020 COVID-19 vaccine, ag e 12+ yr (PFIZER-BIONTECH - PURPLE TOP) Paulina Severino MD Work Phone: [facility] 11-25-2020 COVID-19 vaccine, ag e 12+ yr (PFIZER-BIONTECH - PURPLE TOP) Paulina Severino MD Work Phone: [facility] 07-10-2020 influenza, high dose seasonal, preservative-free Paulina Severino MD Work Phone: [facility] Work Phone: 05-13-2020 influenza, high-dose , quadrivalent vaccine (FLUZONE HIGH DOSE QUADRIVALENT) Paulina Severino MD Work Phone: [facility] 06-01-2019 influenza, high dose seasonal, preservative-free Paulina Severino MD Work Phone: [facility] 05-30-2019 influenza, high dose seasonal, preservative-free Paulina Severino MD Work Phone: [facility] 06-20-2018 influenza, high dose seasonal, preservative-free Paulina Severino MD Work Phone: [facility] 06-09-2018 influenza, high dose seasonal, preservative-free Paulina Severino MD Work Phone: [facility] 06-06-2018 influenza, high dose seasonal, preservative-free Paulina Severino MD Work Phone: [facility] 05-21-2016 influenza, seasonal, injectable Paulina Severino MD Work Phone: [facility] 05-06-2016 pneumococcal polysaccharide vaccine, 23 valclaudia Severino MD Work Phone: [facility] 07-11-2015 pneumococcal conjuga te vaccine, 13 valclaudia Severino MD Work Phone: [facility] Payers Date Payer Category Payer Self-pay 2025 Medicare [id number] 2021 Medicare [id number] 2021 Medicare UHC AARP MEDICAR E UHC AARP MEDICARE HMO [id number] 2021-Present [phone] [address] [address] [place] [address] HMO [id number] 2021 Medicare (Managed Care) [id number] 2021 Medicare [id number] 1950 Unknown [id number] Unknown [id number] Unknown [id number] Unknown [id number] Unknown [id number] Unknown [id number] Unknown [id number] Social History Date Type Detail Facility Start: 11-14-2015 End: 06-06-2024 Tobacco smoking status NHIS Ex-smoker [facility] End: 03-06-1999 History of tobacco use Current smoker [facility] End: 03-06-1999 History of tobacco use Cigarette Smoker [facility] Start: 12-22-2021 End: 03-29-2025 Alcohol intake Current non-drinker of alcohol (finding) [facility] Start: 11-14-2015 End: 06-17-2022 Tobacco Comment Start date: 1969; Stop date: 1998 [facility] Start: 1950 Sex Assigned At Male C [facility] Start: 12-12-2021 End: 08-06-2022 Exposure to SARS-CoV-2 (event) Not sure [facility] Start: 03-08-2022 End: 03-18-2022 Exposure to SARS-CoV-2 (event) Unable to assess [facility] Work Phone: Start: 11-14-2015 End: 06-06-2024 Tobacco use and exposure Smokeless tobacco non-user [facility] Start: 01-20-2023 End: 02-24-2023 History of Social function [facility] Work Phone: Start: 01-20-2023 End: 02-24-2023 Tobacco use panel [facility] Work Phone: Start: 08-21-2012 Adult Depression Screening Assessment 0 [facility] Work Phone: Start: 09-04-2020 Gender identity Identifies as male gender (finding) [facility] Start: 09-04-2020 Sexual orientation Heterosexual (fin ramya) [facility] (I/We) worried whekinjal er (my/our) food would run out before (I/we) got money to buy more. Never true [facility] In the past 12 month s, was there a time when you were not able to pay the mortgage or rent on time? No [facility] How often to you hav e a drink containing alcohol? Never [facility] Medical Equipment Procedure Code Equipment Code Equipment Origin al Text Equipment Identifier Dates Kwc-Ga-T-Kind Implant - [id number] Start: 04-29-2018 [id number], [id number], [id number] Start: 09-03-2021 End: 06-07-2024 Comment on above: Use to test glucose 4 times daily, as di rected. DX: E11.42, E11.65, Z79.4 Use for insulin pen injections 5 times daily, as directed. DX: E11.42, E11.65, Z79.4 Inject 1 Each subcut aneously q 24 HR. Give with each insulin administration. Inject 1 Each subcut aneously every 24 hours. Give with each insulin administration. Graft 6mm Thin W all [place] 80cm 60cm Vascular Stretch Removable Ring Line - [id number] Start: 05-01-2022 [place] Interin g Stretch Thin Wall 6mm X 40cm [id number] Start: 05-01-[address] 10mm Extracellular Matrix 40mm Nerve Multilaminar - [id number] Start: 04-05-2025 [place] Mini Sutu re Quickanchor Plus Ethibond 2-0 V-5 Trocar Tip Titanium - [id number] Start: 04-05-2025 Goals Date Patient Goal Desired Activity /State Personal health goal Functional Status Date Assessment Result Facility 05-02-2025 Are you deaf, or do you have serious difficulty hearing No 05/02/2025 2:06 PM Adriana Hicks RN No [facility] 05-02-2025 Are you blind, or do you have serious difficulty seeing, even when wearing glasses No 05/02/2025 2:06 PM Adriana Hicks RN No [facility] 05-02-2025 Do you have serious difficulty walking or climbing stairs Yes 05/02/2025 2:06 PM Adriana Hicks RN Yes [facility] 05-02-2025 Do you have difficul ty dressing or bathing Yes 05/02/2025 2:06 PM Adriana Hicks RN Yes [facility] 05-02-2025 Because of a physica l, mental, or emotional condition, do you have difficulty doing errands alone such as visiting a physician's office or shopping No 05/02/2025 2:06 PM Adriana Hicks RN No [facility] 02-26-2025 Are you deaf, or do you have serious difficulty hearing No 02/26/2025 12:58 PM Velma Wade RN No [facility] 02-26-2025 Are you blind, or do you have serious difficulty seeing, even when wearing glasses No 02/26/2025 12:58 PM Velma Wade RN No [facility] 02-26-2025 Do you have serious difficulty walking or climbing stairs Yes 02/26/2025 12:58 PM Velma Wade RN Yes [facility] 02-26-2025 Do you have difficul ty dressing or bathing Yes 02/26/2025 12:58 PM Velma Wade RN Yes [facility] 02-26-2025 Because of a physica l, mental, or emotional condition, do you have difficulty doing errands alone such as visiting a physician's office or shopping No 02/26/2025 12:58 PM Velma Wade RN No [facility] 11-04-2024 Are you deaf, or do you have serious difficulty hearing No 11/04/2024 1:45 PM Jessica Granger RN No [facility] 11-04-2024 Are you blind, or do you have serious difficulty seeing, even when wearing glasses No 11/04/2024 1:45 PM Jessica Granger, SACHI No [facility] 11-04-2024 Do you have serious difficulty walking or climbing stairs Yes 11/04/2024 1:45 PM Jessica Granger, SACHI Yes [facility] 11-04-2024 Do you have difficul ty dressing or bathing Yes 11/04/2024 1:45 PM Jessica Granger, SACHI Yes [facility] 11-04-2024 Because of a physica l, mental, or emotional condition, do you have difficulty doing errands alone such as visiting a physician's office or shopping Yes 11/04/2024 1:45 PM Jessica Granger, RN Yes [facility] Mental Status Date Assessment Result Facility 05-02-2025 Because of a physica l, mental, or emotional condition, do you have serious difficulty concentrating, remembering, or making decisions No 05/02/2025 2:06 PM EDT Adriana Tsang, SACHI No [facility] 02-26-2025 Because of a physica l, mental, or emotional condition, do you have serious difficulty concentrating, remembering, or making decisions No 02/26/2025 12:58 PM EDT Velma Blancas RN No [facility] 11-04-2024 Because of a physica l, mental, or emotional condition, do you have serious difficulty concentrating, remembering, or making decisions Yes 11/04/2024 1:45 PM Jessica Granger, SACHI Yes [facility] Clinical Notes 07-26-2017 to 05-10-2025 Telephone Encounter - Cheryl Reese MA - 05/10/2025 10:50 AM EDTTelephone Encounter - Cheryl Reese MA - 05/10/2025 10:50 AM EDTTelephone Encounter - Aurelio Ortiz - 05/02/2025 1:25 PM EDT Note Date & Type Note Facility 05-10-2025 Telephone encounter Note Muriel from [facility] is asking if you can put in an order for patient to have catheter removed. He was in the hospital 04/05/25 you were consulted. Patient has an appointment 05/16/25 for void trial. Do you want him to wait until then or have facility remove catheter. [phone] ask for Muriel. [facility] 05-10-2025 Miscellaneous Notes Muriel from [facility] is asking if you can put in an order for patient to have catheter removed. He was in the hospital 04/05/25 you were consulted. Patient has an appointment 05/16/25 for void trial. Do you want him to wait until then or have facility remove catheter. [phone] ask for Muriel. documented in this encounter [facility] 05-02-2025 Telephone encounter Note Admitted. [facility] 05-02-2025 Miscellaneous Notes Admitted. Pt was straight cath + many foleys while admitted [place] with nurse in 1 week Thanks! documented in this encounter [facility] 05-01-2025 Telephone encounter Note Pt was straight cath + many foleys while admitted [place] with nurse in 1 week Thanks! [facility] Work Phone: 04-23-2025 Note [facility] 04-23-2025 Note [facility] 04-22-2025 Note [facility] 04-21-2025 Note [facility] 04-21-2025 Note [facility] 04-21-2025 Note [facility] 04-21-2025 Note [facility] 04-20-2025 Note [facility] 04-20-2025 Note [facility] 04-20-2025 Note [facility] 04-19-2025 Note [facility] 04-19-2025 Note [facility] 04-19-2025 Note [facility] 04-18-2025 Note [facility] 04-18-2025 Note [facility] 04-18-2025 Note [facility] 04-17-2025 Note [facility] 04-17-2025 Note [facility] 04-17-2025 Note [facility] 04-16-2025 Note [facility] 04-16-2025 Note [facility] 04-15-2025 Note [facility] 04-14-2025 Note [facility] 04-13-2025 Note [facility] 04-12-2025 Note [facility] 04-12-2025 Note [facility] 04-12-2025 Note [facility] 04-12-2025 Note [facility] 04[facility]11-2025 Note [facility] 04-11-2025 Note [facility] 04-10-2025 Note [facility] 04-10-2025 Note [facility] 04-10-2025 Note [facility] 04-10-2025 Note [facility] 04[facility]10-2025 Note [facility] 04-10-2025 Note [facility] 04-10-2025 Note [facility] 04-10-2025 Note [facility] 04-09-2025 Note [facility] 04-09-2025 Note [facility] 04-09-2025 Note [facility] 04-09-2025 Note HNO ID: [id number] Author: SANDRA MORRISON, RN Service: Nursing Author Type: Registered Nurse Type: Nursing Progress Note Filed: 04/09/2025 14:08 Note Text: Peep to 10 cm and Fio2 decreased to 90% and rate decreased to 20. By Agata Aquino NP [facility] 04-09-2025 Note HNO ID: [id number] Author: SANDRA MORRISON RN Service: Nursing Author Type: Registered Nurse Type: Nursing Progress Note Filed: 04/09/2025 14:05 Note Text: Vent. RR increased to 22 per Nataliia Aquino [facility] 04-09-2025 Note [facility] 04-09-2025 Note [facility] 04[facility]09-2025 Note [facility] 04-08-2025 Note [facility] 04-08-2025 Note [facility] 04-08-2025 Note [facility] 04-07-2025 Note [facility] 04-06-2025 Note [facility] 04-06-2025 Note [facility] 04-06-2025 Note [facility]-06-2025 [facility] 04-05-2025 Note SARS-COV-2 (AGENT OF COVID-19) RNA: Not detected INFLUENZA A RNA: Not detected INFLUENZA B RNA: Not detected RESPIRATORY SYNCYTIAL VIRUS (RSV) RNA: Not detected [facility] Comment on above: Performed By: #### 9 [id number] ####[facility] LABORATORYCLIA [id number] [place] [address] [place] [facility] 04-05-2025 Note [facility] 04-05-2025 Telephone encounter Note Called pt, left vm. Sent mychart message as well. [facility] 04-05-2025 Miscellaneous Notes Called pt, left vm. Sent mychart message as well. documented in this encounter [facility] 04-05-2025 Note [facility]-05-20[facility] 04-04-2025 Telephone encounter Note Shilo notified of arrival time for surgery tomorrow: 04/05 Arrive at 6:00 for surgery at 8:00. Npo after midnight. Pt voices understanding. Encouraged to call with questions or problems. [facility] 04-04-2025 Miscellaneous Notes Shilo notified of arrival time for surgery tomorrow: 04/05 Arrive at 6:00 for surgery at 8:00. Npo after midnight. Pt voices understanding. Encouraged to call with questions or problems. documented in this encounter [facility] 04-04-2025 Note [facility] 04-03-2025 Telephone encounter Note Called and spoke with customer support representative Zaid. Goode states he will re-fax and it can take up to 24 hours to receive. Confirmed fax number. Called and updated pt. Pt would like to be updated once the form is received on our end and faxed back to [facility]. [facility] 04-03-2025 Miscellaneous Notes Called and spoke with customer support representative Russel. Russel states he will re-fax and it can take up to 24 hours to receive. Confirmed fax number. Called and updated pt. Pt would like to be updated once the form is received on our end and faxed back to [facility]. Awaiting receipt of fax from [facility]. Will call insurance customer service to assist. Patient is asking for the status of paperwork. Patient's insurance states they will cancel his insurance if this is not received. Shilo is calling Paulina Severino MD today to advise patient insurance [employer] is to fax a paper for PCP to fill out regarding chronic illness to keep his health insurance. Has this been received in office today? Please fill out that information and advise patient when paperwork is completed and faxed back to [facility] Patient has been identified by name and birthdate. Person calling: self Call patient at: on cell [phone] (home) [phone] (cell) Was an appointment scheduled: No Closing statement: Results or non-symptom based questions: Thank you for calling [facility], your call will be returned within the next business day. Kim Valdez documented in this encounter [facility] 04-03-2025 Telephone encounter Note Awaiting receipt of fax from [facility]. Will call insurance customer service to assist. [facility] 04-03-2025 Telephone encounter Note Patient is asking for the status of paperwork. Patient's insurance states they will cancel his insurance if this is not received. [facility] 04-02-2025 Telephone encounter Note Shilo is calling Paulina Severino MD today to advise patient insurance [employer] is to fax a paper for PCP to fill out regarding chronic illness to keep his health insurance. Has this been received in office today? Please fill out that information and advise patient when paperwork is completed and faxed back to [facility] health insurance Patient has been identified by name and birthdate. Person calling: self Call patient at: on cell [phone] (home) [phone] (cell) Was an appointment scheduled: No Closing statement: Results or non-symptom based questions: Thank you for calling [facility], your call will be returned within the next business day. Kim Valdez [facility] 03-29-2025 History and physical note Images from the original note were not included. [facility] HISTORY AND PHYSICAL EXAMINATION SERVICE DATE: 03/29/2025 SERVICE TIME: 10:00 AM PRIMARY CARE PHYSICIAN: Paulina Severino MD Assessment Patient has the following medical conditions which may affect radha-operative course: Preoperative examination See A/P for medical conditions which may affect radha-operative course History of CVA (cerebrovascular accident) 2008 Stable Neuro deficits: None Managed by: Primary ASA, Plavix, Xarelto Coronary artery disease involving mentasta coronary artery of mentasta heart [facility] and stetnt 199 STEMI September 2024 S/p PCI to RCA 10/30/2024 LHC: 50% narrowing of the left main, LAD with multiple lesions, circumflex with severe disease in the RCA with severe calcified disease. He also had in-stent stenosis. He was not recommended for CABG, was recommended for medical treatment. Managed by [facility]. Last office visit 02/28/2025 Denies chest pain or use of sublingual nitroglycerin since February 2025 ED visit for chest pain and hypertension Rx: Isosorbide, carvedilol, hydralazine, nifedipine, aspirin, Plavix He is on triple antiplatelet therapy -aspirin 81 mg, Plavix 75 mg, Xarelto - for cardiac stents than 6 months ago and known cardiovascular disease. Advised to contact cardiology for preoperative anticoagulation instructions. Patient states surgeon is aware he is on 3 blood thinning medications and states he was told by surgeon he was okay to continue all 3 for surgery. Cardiac optimization requested by surgeon pending HFrEF (heart failure with reduced ejection fraction) (HCC) Stable Managed by [facility] Current Rx: Imdur, hydralazine, carvedilol, Procardia, spironolactone Last office visit with cardiology 02/28/2025. EF 40% per PET scan 10/25/2024 Hypertension 02/23/2025 hospitalization for chest pain and hypertension. Systolic blood pressure 220s Has seen primary and cardiology posthospitalization. Type 2 diabetes mellitus with diabetic neuropathy, with long-term current use of insulin (HCC) Rx: Insulin Managed by primary Continuous BGM BS today 132 Advised to contact prescribing provider for preop instructions Hemoglobin A1C (%) Date Value 02/21/2020 11.6 Hemoglobin A1C (POCT) (%) Date Value 03/05/2025 7.8 Peripheral artery disease Medical management per vascular surgery Per vascular note: Attempted ABF -- 2016 DJW - R Ax- fem / R fem- L fem bypass with B DRESS FINISHER endart -- 2016 DJW - L groin exploration, LLE graft thrombectomy -- 2016 JZ - L groin exploration with thrombectomy of fem-fem bypass -- 2017 DJW - L ax- profunda to R profunda bypass w/ redo groins -- 2021 LM - L AKA -- 2021 CB - R AKA -- 2022 LM - L CEA -- 2000 DJW - R CEA -- 2012 DJW Obesity, Class III, BMI >= 40 BMI 54.5 Bilateral AKA Weight is self-reported. Unable to be weighed. Anemia Hemoglobin (g/dL) Date Value 02/26/2025 8.9 10/04/2014 15.0 HGB (g/dL) Date Value 02/21/2020 13.5 Hematocrit (%) Date Value 02/26/2025 28.8 02/21/2020 41.7 HCT (%) Date Value 10/07/2023 29.6 05/26/2022 32.1 WBC Date Value 02/26/2025 7.76 k/uL 05/26/2022 8.0 K/uL Check CBC today for Hgb 8.9 02/26/2025 ANESTHESIA FINDINGS: Intubation History: No history of difficult intubation. No abnormal airway history Significant Anesthesia Considerations: wakes up angry. No other anesthesia concerns Airway History: No history of difficult airway No abnormal airway history Tarango Activity Status Index: METS: Take care of self; that is eating, dressing, bathing, using the toilet (2.75 METs) DASI Score: 2.75 (Bilateral AKA) Patient denies any chest pain or undue shortness of breath with the above physical activity. ARISCAT Score: Age: 51-80 Preoperative SpO2: >=96% Respiratory infection in the last month: No Preoperative anemia: Yes Surgical incision: peripheral Duration of surgery: >3 hrs Emergency procedure: No ARISCAT Score: 37 I - PHYSICAL EVALUATION AIRWAY Patient intubated: No. DENTAL Dental findings: poor dentition and missing tooth/teeth. II - ANESTHESIA PLAN Anesthetic Plan: general Beta Kezia Monitoring Plan Post Procedure Analgesic Plan Prepared for Surgery: CONSULTS: The following consults have been initiated at this time: cardiology (pending). Planned Anesthetic: general The Following Tests/Procedures Have Been Initiated: No orders of the defined types were placed in this encounter. Assessment/Plan DIAGNOSIS Presurgical Testing Neuropathic pain [M79.2] PLAN Planned Procedure: Procedure(s) with comments: ADJACENT TISSUE TRANSFER / REARRANGEMENT LOWER EXTREMITY ADD'L < OR =30 SQCM SQCM (Right) - Anesthesia: General - Supine then prone, no paralysis when prone IMPLANTATION PERIPHERAL NERVE INTERFACE END INTO BONE ANCHORS OR MUSCLE GRAFT HARVEST (Right) The Following Tests/Procedures Have Been Initiated: No orders of the defined types were placed in this encounter. No labs ordered per surgeon in the medical center Lab orders from primary to be done on 03/20/2025: CBC, hemoglobin A1c, CMP, lipid panel, fasting. Will have him get labs done today since H&H on 02/26/2025 8.9/28.8. REASON FOR VISIT: Shilo Hathaway is a 74 year old male who is scheduled for Procedure(s) with comments: ADJACENT TISSUE TRANSFER / REARRANGEMENT LOWER EXTREMITY ADD'L < OR =30 SQCM SQCM (Right) - Anesthesia: General - Supine then prone, no paralysis when prone IMPLANTATION PERIPHERAL NERVE INTERFACE END INTO BONE ANCHORS OR MUSCLE GRAFT HARVEST (Right) at the request of @[email or web address]@ for routine H&P. My final recommendation will be communicated back to the requesting physician by way of shared medical record or letter. To perform a comprehensive review of the patients past medical history, assess their current health status and obtain any additional testing required based on anesthesia guidelines. To assess and identify potential anesthesia problems, particularly those that may suggest potential complications or contraindications to the planned procedure. Subjective The patient has the following: COVID-19 Immunization Status Current Care Gaps Covid-19 Vaccine ( season) Overdue since 12/26/2024 06/27/2024 Imm Admin: COVID-19 vaccine, age 12+ yr (PFIZER-BIONTECH COMIRNATY) 07/19/2023 Imm Admin: COVID-19 vaccine, age 12+ yr (PFIZER-BIONTECH COMIRNATY) 04/22/2023 Imm Admin: COVID-19 vaccine, age 12+ yr, bivalent (PFIZER-BIONTECH) Only the first 3 history entries have been loaded, but more history exists. CHIEF COMPLAINT: Presurgical Testing HPI: Shilo Hathaway is a 74 year old male who presents for presurgical testing. Shilo Hathaway has been diagnosed with neuropathic pain. He reports bilateral phantom limb pain since bilateral AKA. He reports ongoing nerve pain of bone area of R AKA. Pain 5/10 aching. He has prosthetic legs but reports he stopped wearing leg prosthesis' secondary to pain. Presents today in wheelchair. ED visit February 2025 for chest pain and hypertension, systolic blood pressure over 200. Has seen cardiology and primary since then. Denies chest pain or use of nitroglycerin since ED visit. After discussion with the surgeon patient has agreed to surgical intervention. REVIEW OF SYSTEMS: General: No weight loss, malaise or fevers. Neurological: Positive for: strokes. Patient's stroke is without residual deficits. Negative for: dementia, headaches, impaired sensorium, multiple sclerosis, Parkinson's disease, seizures and TIA. Respiratory: Negative for: tobacco use and obstructive sleep apnea. Cardiovascular: Denies chest pain, palpitations, dizziness, lightheadedness, syncope or near-syncope. Positive for: anticoagulation therapy, CAD, CHF, hyperlipidemia, hypertension and PTCA Patient's last office visit with ball truing machine operator, Liz Edmond, was 02/28/2025. Negative for: AICD/PPM, arrhythmia, atrial fibrillation, chest pain and DVT/PE. GI: Negative for: abdominal pain, dysphagia, GERD, nausea and vomiting. : No history of dysuria, frequency or incontinence, stones or chronic kidney disease. No difficulty urinating, nocturia > 1 time per night or hematuria. Endocrine: Positive for: diabetes mellitus. Patient's diabetes mellitus is controlled by insulin. Hematology: Positive for: anemia and chronic anti-coagulation/platelet meds. Patient is on anti-coagulation/platelet medication(s): Aspirin, Plavix and DOAC. Oncology: No history of CA metastasis, chemo within 30 days, or radiotherapy within 90 days. No history of oncological symptoms or problems. Psych: No history of psychiatric symptoms or problems. Positive for: Marijuana Use. Product type: Edible. Musculoskeletal: Bilateral AKA Positive for: back pain. Skin: Negative for lesions, rash and itching. Implanted Devices: Has implanted device Implants: cardiac stents. PAST MEDICAL HISTORY Diagnosis Date Aortoiliac occlusive disease (HCC) Atherosclerotic heart disease of mentasta coronary artery without angina pectoris Carotid artery occlusion Carotid artery stenosis Cerebrovascular accident (CVA) (HCC) Depressive disorder Diverticulitis of colon Essential tremor Gastroesophageal reflux disease Generalized anxiety disorder Hiatal hernia History of myocardial infarction Hyperlipidemia Hypertension Intervertebral disc disorder of lumbar region with myelopathy Irritable bowel syndrome Neuropathic pain Old myocardial infarction Peripheral vascular disease PERS HX COLONIC POLYPS 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 Sleep apnea SOB (shortness of breath) STEMI (ST elevation myocardial infarction) (HCC) Thrombosis of right femoral-femoral bypass graft Type 2 diabetes mellitus (HCC) PAST SURGICAL HISTORY Procedure Laterality Date AMPUTATION OF LOWER LEG Left 05/05/2022 Left above knee amputation AMPUTATION OF LOWER LEG Right 09/17/2023 Right above-knee amputation ANGIOPLASTY 1998, 2004, 2013 CAROTID ENDARTERECTOMY Bilateral right 02/2013, left 08/2001 COLONOSCOPY 05/26/2023 COLONOSCOPY FLX DX W/COLLJ SPEC WHEN PFRMD 2000 Colonoscopy with polypectomies COLONOSCOPY SCREENING 07/04/2021 tubular adenomas x5, severe diverticulosis ESOPHAGOGASTRODUODENOSCOPY TRANSORAL DIAGNOSTIC 2000 EGD reportedly normal EXPLORATION GROIN Left 04/29/2018 Left Groin Exploration, Thrombectomy of Left Limb of Axillo-Bifemoral Bypass, Revision of Left Femoral Anastomosis INSERT INTRACORONARY STENT 1998 RCA LAPAROSCOPY SURG CHOLECYSTECTOMY 1997 Cholecystectomy, lap LEFT HEART CATH,PERCUTANEOUS 1998 Cardiac cath, L heart PAST SURGICAL HISTORY OF Carotid stenosis PAST SURGICAL HISTORY OF Bilateral 12/25/2016 Axillo bifem bypass PAST SURGICAL HISTORY OF ureter removal STENT PLACEMENT 1998 BMS RCA STENT PLACEMENT 11/2013 MARVIN RCA FAMILY HISTORY Problem Relation Age of Onset Ischemic Heart Disease Father Cancer Father Coronary Artery Disease Father Breast Cancer Mother Social History Tobacco Use Smoking status: Former Current packs/day: 0.00 Types: Cigarettes Quit date: 03/06/1999 Years since quittin.0 Smokeless tobacco: Never Tobacco comments: Start date: 1969; Stop date: 1998 Vaping Use Vaping status: Never Used Substance Use Topics Alcohol use: No Comment: abstinent x 6 yrs Drug use: Yes Types: Marijuana Comment: gummy prn Prior to Admission medications as of 03/29/25 1008 Medication Sig Last Dose Taking rivaroxaban (XARELTO) 2.5 mg tablet Take 1 tablet by mouth two times a day. Yes isosorbide mononitrate ER (IMDUR) 60 mg 24 hr tablet Take 1 tablet by mouth two times a day. Yes carvedilol (COREG) 6.25 mg tablet Take 1 tablet by mouth two times a day with meals. Yes hydrALAZINE (APRESOLINE) 25 mg tablet Take 3 tablets by mouth every 8 hours. Yes NIFEdipine ER (PROCARDIA XL) 90 mg 24 hr tablet Take 1 tablet by mouth once daily. Yes rosuvastatin (CRESTOR) 20 mg tablet Take 1 tablet by mouth once daily. Yes insulin lispro (HUMALOG KWIKPEN) 100 unit/mL INJECT 12 UNITS SUBCUTANEOUSLY 3 TIMES DAILY BEFORE MEALS -ADD 2 UNITS IF GLUCOSE IS OVER 250 Yes tamsulosin (FLOMAX) 0.4 mg Take 1 capsule by mouth once daily Yes gabapentin (NEURONTIN) 600 mg tablet Take 600 mg by mouth four times daily. Pt takes at least one daily but gets drunk feeling if takes more Yes aspirin 81 mg chewable tablet Take 1 tablet by mouth once daily. Yes clopidogrel (PLAVIX) 75 mg tablet Take 1 tablet by mouth once daily Yes escitalopram oxalate (LEXAPRO) 10 mg tablet Take 1 tablet by mouth once daily. Yes ACETAMINOPHEN (TYLENOL ORAL) Take 1-2 tablets by mouth every 6 hours as needed. Yes MULTIVIT &MINERALS/FERROUS FUM (MULTI VITAMIN ORAL) Take by mouth once daily. Yes nitroglycerin sublingual (NITROQUICK) 0.4 mg SL tablet Take 1 tablet by mouth as needed for chest pain. FOR CHEST PAIN. IF NO PAIN RELIEF, CALL 911 ascorbic acid, vitamin C, (VITAMIN C) 500 mg tablet Take 1 tablet by mouth once daily. Patient not taking: Reported on 03/29/2025 TRESIBA FLEXTOUCH U-100 100 unit/mL (3 mL) injection pen Inject 20 Units subcutaneously daily at bedtime. UNIFINE PENTIPS PLUS 32 gauge x Use for insulin pen injections 5 times daily, as directed. DX: E11.42, E11.65, Z79.4 No medication comments found. ALLERGIES Allergen Reactions Levofloxacin Unknown Metformin Diarrhea Atorvastatin Myalgia Objective PHYSICAL EXAM: General: alert and oriented and healthy appearance. Pertinent negatives noted - not distressed. Skin: normal color, no rash or lesions. HEENT: No additional findings for patient's neck. Cardiovascular: regular rate and rhythm, normal S1 and S2, no rub, murmurs, or gallop. Respiratory: normal breath sounds, no wheezes or crackles. Abdomen: bowel sounds present and soft. Pertinent negatives noted - not tender. Extremities: no deformity, no edema or tenderness, no joint swelling or clubbing. Bilateral AKA. Neurological: normal cognition and motor skills. PAIN ASSESSMENT: Pain Pain Level: 5 VITALS: BP 146/68 Pulse 84 Temp 98.2 Resp 16 Ht 3' 9 (1.14m) Wt 157 lb (71.2kg) SpO2 96% BMI 54.51 kg/(m^2). Diagnostic tests reviewed for today's visit: Lab Value Units Date High Low HB 8.9 g/dL 02/26/2025 17.0 13.0 HCT 28.8 % 02/26/2025 51.0 39.0 WBC 7.76 k/uL 02/26/2025 11.00 3.70 PLT 215 k/uL 02/26/2025 400 150 NA 138 mmol/L 02/26/2025 144 136 K 4.3 mmol/L 02/26/2025 5.1 3.7 GLUC 100 mg/dL 02/26/2025 99 74 BUN 16 mg/dL 02/26/2025 24 9 CREAT 1.26 mg/dL 02/26/2025 1.22 0.73 PTSEC 10.3 sec 02/24/2025 13.0 9.7 INR 0.9 no uni* 02/24/2025 1.3 0.9 APTT 66.3 sec 02/25/2025 32.4 23.0 ALT 15 U/L 11/04/2024 54 10 AST 10 U/L 11/04/2024 40 14 TBILI 0.3 mg/dL 11/04/2024 1.3 0.2 TSH No results within date range. Lab Value Units Date High Low HCGQT No results within date range. UHCG No results within date range. HCG, BODY* No results within date range. Lab Value Units Date High Low ABORHD No results within date range. ABSCREEN No results within date range. Hemoglobin A1C (%) Date Value 10/02/2024 7.7 07/16/2023 9.8 02/24/2023 10.7 02/21/2020 11.6 11/07/2018 9.3 07/26/2017 8.7 10/12/2014 10.7 12/06/2013 9.6 Hemoglobin A1c (%) Date Value 04/13/2016 8.2 10/10/2015 8.4 Hemoglobin A1C (POCT) (%) Date Value 03/05/2025 7.8 06/27/2024 10.2 03/27/2024 8.4 04/22/2023 12.0 11/23/2022 10.8 Recent Results (from the past 8760 hours) ECG COMPLETE Collection Time: 10/30/24 12:33 PM Result Value Ventricular Rate 71 Atrial Rate 71 P-R Interval 172 QRS Duration 98 QT Interval 388 QTC Calculation (Bazett) 421 Calculated P [place] -10 Calculated R [place] 58 Calculated T [place] 78 Impression NORMAL SINUS RHYTHM NORMAL ECG Confirmed by ASHLEY COLLINS MD ([id number]) on 11/08/2024 9:16:03 PM Recent Results (from the past 21823 hours) ECHO Collection Time: 10/19/24 9:40 AM Impression CONCLUSIONS: - Exam indication: limited for LV function - The left ventricle is small. There is mild concentric left ventricular hypertrophy. Left ventricular systolic function is normal. EF = 67 5% (2D biplane) Definity contrast used for endocardial border detection. Indeterminate left ventricular diastolic function. - Small, non significant intracavitary gradient seen within the left ventricle (apex): 2 mmHg, unchanged with Valsalva maneuver. - The right ventricle is normal in size. Right ventricular systolic function is low normal. - Estimated right ventricular systolic pressure is not reported due to an insufficient tricuspid regurgitation signal. Estimated right atrial pressure is 3 mmHg based on IVC assessment. - There are no significant valvular abnormalities. - Exam was compared with the prior echocardiographic exam performed on 07/19/2024. There is no significant change. * * * Final * * * Instructions Given to Patient: Instructions located in the after visit summary. Patient given verbal and written preop instructions and voices comprehension and compliance. I spent a total of 60 minutes on the date of the service which included preparing to see the patient, [id number] patient care, completing clinical documentation, obtaining and/or reviewing separately obtained history, performing a medically appropriate examination, counseling and educating the patient/family/caregiver, communicating with other HCPs (not separately reported), independently interpreting results (not separately reported), and communicating results to the patient/family/caregiver. SIGNATURE: Mel Aponte APRN.CNP PATIENT NAME: Shilo Hathaway DATE: March 29, 2025 TIME: 10:00 AM PAGER/CONTACT #: [facility] 03-29-2025 History and physical note Images from the original note were not included. [facility] HISTORY AND PHYSICAL EXAMINATION SERVICE DATE: 03/29/2025 SERVICE TIME: 10:00 AM PRIMARY CARE PHYSICIAN: Paulina Severino MD Assessment Patient has the following medical conditions which may affect radha-operative course: Preoperative examination See A/P for medical conditions which may affect radha-operative course History of CVA (cerebrovascular accident) 2008 Stable Neuro deficits: None Managed by: Primary ASA, Plavix, Xarelto Coronary artery disease involving mentasta coronary artery of mentasta heart [facility] and stetnt 199 STEMI September 2024 S/p PCI to RCA 10/30/2024 LHC: 50% narrowing of the left main, LAD with multiple lesions, circumflex with severe disease in the RCA with severe calcified disease. He also had in-stent stenosis. He was not recommended for CABG, was recommended for medical treatment. Managed by [facility]. Last office visit 02/28/2025 Denies chest pain or use of sublingual nitroglycerin since February 2025 ED visit for chest pain and hypertension Rx: Isosorbide, carvedilol, hydralazine, nifedipine, aspirin, Plavix He is on triple antiplatelet therapy -aspirin 81 mg, Plavix 75 mg, Xarelto - for cardiac stents than 6 months ago and known cardiovascular disease. Advised to contact cardiology for preoperative anticoagulation instructions. Patient states surgeon is aware he is on 3 blood thinning medications and states he was told by surgeon he was okay to continue all 3 for surgery. Cardiac optimization requested by surgeon pending HFrEF (heart failure with reduced ejection fraction) ([facility]) Stable Managed by [facility] Current Rx: Imdur, hydralazine, carvedilol, Procardia, spironolactone Last office visit with cardiology 02/28/2025. EF 40% per PET scan 10/25/2024 Hypertension 02/23/2025 hospitalization for chest pain and hypertension. Systolic blood pressure 220s Has seen primary and cardiology posthospitalization. Type 2 diabetes mellitus with diabetic neuropathy, with long-term current use of insulin ([facility]) Rx: Insulin Managed by primary Continuous BGM BS today 132 Advised to contact prescribing provider for preop instructions Hemoglobin A1C (%) Date Value 02/21/2020 11.6 Hemoglobin A1C (POCT) (%) Date Value 03/05/2025 7.8 Peripheral artery disease Medical management per vascular surgery Per vascular note: Attempted ABF -- 2016 DJW - R Ax- fem / R fem- L fem bypass with B DRESS FINISHER endart -- 2016 DJW - L groin exploration, LLE graft thrombectomy -- 2016 JZ - L groin exploration with thrombectomy of fem-fem bypass -- 2017 DJW - L ax- profunda to R profunda bypass w/ redo groins -- 2021 LM - L AKA -- 2021 CB - R AKA -- 2022 LM - L CEA -- 2000 DJW - R CEA -- 2012 DJ Obesity, Class III, BMI >= 40 BMI 54.5 Bilateral AKA Weight is self-reported. Unable to be weighed. Anemia Hemoglobin (g/dL) Date Value 02/26/2025 8.9 10/04/2014 15.0 HGB (g/dL) Date Value 02/21/2020 13.5 Hematocrit (%) Date Value 02/26/2025 28.8 02/21/2020 41.7 HCT (%) Date Value 10/07/2023 29.6 05/26/2022 32.1 WBC Date Value 02/26/2025 7.76 k/uL 05/26/2022 8.0 K/uL Check CBC today for Hgb 8.9 02/26/2025 ANESTHESIA FINDINGS: Intubation History: No history of difficult intubation. No abnormal airway history Significant Anesthesia Considerations: wakes up angry. No other anesthesia concerns Airway History: No history of difficult airway No abnormal airway history Tarango Activity Status Index: METS: Take care of self; that is eating, dressing, bathing, using the toilet (2.75 METs) DASI Score: 2.75 (Bilateral AKA) Patient denies any chest pain or undue shortness of breath with the above physical activity. ARISCAT Score: Age: 51-80 Preoperative SpO2: >=96% Respiratory infection in the last month: No Preoperative anemia: Yes Surgical incision: peripheral Duration of surgery: >3 hrs Emergency procedure: No ARISCAT Score: 37 I - PHYSICAL EVALUATION AIRWAY Patient intubated: No. DENTAL Dental findings: poor dentition and missing tooth/teeth. II - ANESTHESIA PLAN Anesthetic Plan: general Beta Kezia Monitoring Plan Post Procedure Analgesic Plan Prepared for Surgery: CONSULTS: The following consults have been initiated at this time: cardiology (pending). Planned Anesthetic: general The Following Tests/Procedures Have Been Initiated: No orders of the defined types were placed in this encounter. Assessment/Plan DIAGNOSIS Presurgical Testing Neuropathic pain [M79.2] PLAN Planned Procedure: Procedure(s) with comments: ADJACENT TISSUE TRANSFER / REARRANGEMENT LOWER EXTREMITY ADD'L < OR =30 SQCM SQCM (Right) - Anesthesia: General - Supine then prone, no paralysis when prone IMPLANTATION PERIPHERAL NERVE INTERFACE END INTO BONE ANCHORS OR MUSCLE GRAFT HARVEST (Right) The Following Tests/Procedures Have Been Initiated: No orders of the defined types were placed in this encounter. No labs ordered per surgeon in the medical center Lab orders from primary to be done on 03/20/2025: CBC, hemoglobin A1c, CMP, lipid panel, fasting. Will have him get labs done today since H&H on 02/26/2025 8.9/28.8. REASON FOR VISIT: Shilo Hathaway is a 74 year old male who is scheduled for Procedure(s) with comments: ADJACENT TISSUE TRANSFER / REARRANGEMENT LOWER EXTREMITY ADD'L < OR =30 SQCM SQCM (Right) - Anesthesia: General - Supine then prone, no paralysis when prone IMPLANTATION PERIPHERAL NERVE INTERFACE END INTO BONE ANCHORS OR MUSCLE GRAFT HARVEST (Right) at the request of @[email or web address]@ for routine H&P. My final recommendation will be communicated back to the requesting physician by way of shared medical record or letter. To perform a comprehensive review of the patients past medical history, assess their current health status and obtain any additional testing required based on anesthesia guidelines. To assess and identify potential anesthesia problems, particularly those that may suggest potential complications or contraindications to the planned procedure. Subjective The patient has the following: COVID-19 Immunization Status Current Care Gaps Covid-19 Vaccine ( season) Overdue since 12/26/2024 06/27/2024 Imm Admin: COVID-19 vaccine, age 12+ yr (PFIZER-BIONTECH COMIRNATY) 07/19/2023 Imm Admin: COVID-19 vaccine, age 12+ yr (PFIZER-BIONTECH COMIRNATY) 04/22/2023 Imm Admin: COVID-19 vaccine, age 12+ yr, bivalent ([employer]-BIONTECH) Only the first 3 history entries have been loaded, but more history exists. CHIEF COMPLAINT: Presurgical Testing HPI: Shilo Hathaway is a 74 year old male who presents for presurgical testing. Shilo Hathaway has been diagnosed with neuropathic pain. He reports bilateral phantom limb pain since bilateral AKA. He reports ongoing nerve pain of bone area of R AKA. Pain 5/10 aching. He has prosthetic legs but reports he stopped wearing leg prosthesis' secondary to pain. Presents today in wheelchair. ED visit February 2025 for chest pain and hypertension, systolic blood pressure over 200. Has seen cardiology and primary since then. Denies chest pain or use of nitroglycerin since ED visit. After discussion with the surgeon patient has agreed to surgical intervention. REVIEW OF SYSTEMS: General: No weight loss, malaise or fevers. Neurological: Positive for: strokes. Patient's stroke is without residual deficits. Negative for: dementia, headaches, impaired sensorium, multiple sclerosis, Parkinson's disease, seizures and TIA. Respiratory: Negative for: tobacco use and obstructive sleep apnea. Cardiovascular: Denies chest pain, palpitations, dizziness, lightheadedness, syncope or near-syncope. Positive for: anticoagulation therapy, CAD, CHF, hyperlipidemia, hypertension and PTCA Patient's last office visit with ball truing machine operator, Liz Edmond, was 02/28/2025. Negative for: AICD/PPM, arrhythmia, atrial fibrillation, chest pain and DVT/PE. GI: Negative for: abdominal pain, dysphagia, GERD, nausea and vomiting. : No history of dysuria, frequency or incontinence, stones or chronic kidney disease. No difficulty urinating, nocturia > 1 time per night or hematuria. Endocrine: Positive for: diabetes mellitus. Patient's diabetes mellitus is controlled by insulin. Hematology: Positive for: anemia and chronic anti-coagulation/platelet meds. Patient is on anti-coagulation/platelet medication(s): Aspirin, Plavix and DOAC. Oncology: No history of CA metastasis, chemo within 30 days, or radiotherapy within 90 days. No history of oncological symptoms or problems. Psych: No history of psychiatric symptoms or problems. Positive for: Marijuana Use. Product type: Edible. Musculoskeletal: Bilateral AKA Positive for: back pain. Skin: Negative for lesions, rash and itching. Implanted Devices: Has implanted device Implants: cardiac stents. PAST MEDICAL HISTORY Diagnosis Date Aortoiliac occlusive disease (HCC) Atherosclerotic heart disease of [place] coronary artery without angina pectoris Carotid artery occlusion Carotid artery stenosis Cerebrovascular accident (CVA) (HCC) Depressive disorder Diverticulitis of colon Essential tremor Gastroesophageal reflux disease Generalized anxiety disorder Hiatal hernia History of myocardial infarction Hyperlipidemia Hypertension Intervertebral disc disorder of lumbar region with myelopathy Irritable bowel syndrome Neuropathic pain Old myocardial infarction Peripheral vascular disease PERS HX COLONIC POLYPS 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 Sleep apnea SOB (shortness of breath) STEMI (ST elevation myocardial infarction) (HCC) Thrombosis of right femoral-femoral bypass graft Type 2 diabetes mellitus (HCC) PAST SURGICAL HISTORY Procedure Laterality Date AMPUTATION OF LOWER LEG Left 05/05/2022 Left above knee amputation AMPUTATION OF LOWER LEG Right 09/17/2023 Right above-knee amputation ANGIOPLASTY 1998, 2004, 2014 CAROTID ENDARTERECTOMY Bilateral right 02/2013, left 08/2001 COLONOSCOPY 05/26/2023 COLONOSCOPY FLX DX W/COLLJ SPEC WHEN PFRMD 2000 Colonoscopy with polypectomies COLONOSCOPY SCREENING 07/04/2021 tubular adenomas x5, severe diverticulosis ESOPHAGOGASTRODUODENOSCOPY TRANSORAL DIAGNOSTIC 2000 EGD reportedly normal EXPLORATION GROIN Left 04/29/2018 Left Groin Exploration, Thrombectomy of Left Limb of Axillo-Bifemoral Bypass, Revision of Left Femoral Anastomosis INSERT INTRACORONARY STENT 1998 RCA LAPAROSCOPY SURG CHOLECYSTECTOMY 1997 Cholecystectomy, lap LEFT HEART CATH,PERCUTANEOUS 1998 Cardiac cath, L heart PAST SURGICAL HISTORY OF Carotid stenosis PAST SURGICAL HISTORY OF Bilateral 12/25/2016 Axillo bifem bypass PAST SURGICAL HISTORY OF ureter removal STENT PLACEMENT 1998 BMS RCA STENT PLACEMENT 11/2013 MARVIN RCA FAMILY HISTORY Problem Relation Age of Onset Ischemic Heart Disease Father Cancer Father Coronary Artery Disease Father Breast Cancer Mother Social History Tobacco Use Smoking status: Former Current packs/day: 0.00 Types: Cigarettes Quit date: 03/06/1999 Years since quittin.0 Smokeless tobacco: Never Tobacco comments: Start date: 1969; Stop date: 1998 Vaping Use Vaping status: Never Used Substance Use Topics Alcohol use: No Comment: abstinent x 6 yrs Drug use: Yes Types: Marijuana Comment: gummy prn Prior to Admission medications as of 03/29/25 1008 Medication Sig Last Dose Taking rivaroxaban (XARELTO) 2.5 mg tablet Take 1 tablet by mouth two times a day. Yes isosorbide mononitrate ER (IMDUR) 60 mg 24 hr tablet Take 1 tablet by mouth two times a day. Yes carvedilol (COREG) 6.25 mg tablet Take 1 tablet by mouth two times a day with meals. Yes hydrALAZINE (APRESOLINE) 25 mg tablet Take 3 tablets by mouth every 8 hours. Yes NIFEdipine ER (PROCARDIA XL) 90 mg 24 hr tablet Take 1 tablet by mouth once daily. Yes rosuvastatin (CRESTOR) 20 mg tablet Take 1 tablet by mouth once daily. Yes insulin lispro (HUMALOG KWIKPEN) 100 unit/mL INJECT 12 UNITS SUBCUTANEOUSLY 3 TIMES DAILY BEFORE MEALS -ADD 2 UNITS IF GLUCOSE IS OVER 250 Yes tamsulosin (FLOMAX) 0.4 mg Take 1 capsule by mouth once daily Yes gabapentin (NEURONTIN) 600 mg tablet Take 600 mg by mouth four times daily. Pt takes at least one daily but gets drunk feeling if takes more Yes aspirin 81 mg chewable tablet Take 1 tablet by mouth once daily. Yes clopidogrel (PLAVIX) 75 mg tablet Take 1 tablet by mouth once daily Yes escitalopram oxalate (LEXAPRO) 10 mg tablet Take 1 tablet by mouth once daily. Yes ACETAMINOPHEN (TYLENOL ORAL) Take 1-2 tablets by mouth every 6 hours as needed. Yes MULTIVIT &MINERALS/FERROUS FUM (MULTI VITAMIN ORAL) Take by mouth once daily. Yes nitroglycerin sublingual (NITROQUICK) 0.4 mg SL tablet Take 1 tablet by mouth as needed for chest pain. FOR CHEST PAIN. IF NO PAIN RELIEF, CALL 911 ascorbic acid, vitamin C, (VITAMIN C) 500 mg tablet Take 1 tablet by mouth once daily. Patient not taking: Reported on 03/29/2025 TRESIBA FLEXTOUCH U-100 100 unit/mL (3 mL) injection pen Inject 20 Units subcutaneously daily at bedtime. UNIFINE PENTIPS PLUS 32 gauge x Use for insulin pen injections 5 times daily, as directed. DX: E11.42, E11.65, Z79.4 No medication comments found. ALLERGIES Allergen Reactions Levofloxacin Unknown Metformin Diarrhea Atorvastatin Myalgia Objective PHYSICAL EXAM: General: alert and oriented and healthy appearance. Pertinent negatives noted - not distressed. Skin: normal color, no rash or lesions. HEENT: No additional findings for patient's neck. Cardiovascular: regular rate and rhythm, normal S1 and S2, no rub, murmurs, or gallop. Respiratory: normal breath sounds, no wheezes or crackles. Abdomen: bowel sounds present and soft. Pertinent negatives noted - not tender. Extremities: no deformity, no edema or tenderness, no joint swelling or clubbing. Bilateral AKA. Neurological: normal cognition and motor skills. PAIN ASSESSMENT: Pain Pain Level: 5 VITALS: BP 146/68 Pulse 84 Temp 98.2 Resp 16 Ht 3' 9 (1.14m) Wt 157 lb (71.2kg) SpO2 96% BMI 54.51 kg/(m^2). Diagnostic tests reviewed for today's visit: Lab Value Units Date High Low HB 8.9 g/dL 02/26/2025 17.0 13.0 HCT 28.8 % 02/26/2025 51.0 39.0 WBC 7.76 k/uL 02/26/2025 11.00 3.70 PLT 215 k/uL 02/26/2025 400 150 NA 138 mmol/L 02/26/2025 144 136 K 4.3 mmol/L 02/26/2025 5.1 3.7 GLUC 100 mg/dL 02/26/2025 99 74 BUN 16 mg/dL 02/26/2025 24 9 CREAT 1.26 mg/dL 02/26/2025 1.22 0.73 PTSEC 10.3 sec 02/24/2025 13.0 9.7 INR 0.9 no uni* 02/24/2025 1.3 0.9 APTT 66.3 sec 02/25/2025 32.4 23.0 ALT 15 U/L 11/04/2024 54 10 AST 10 U/L 11/04/2024 40 14 TBILI 0.3 mg/dL 11/04/2024 1.3 0.2 TSH No results within date range. Lab Value Units Date High Low HCGQT No results within date range. UHCG No results within date range. HCG, BODY* No results within date range. Lab Value Units Date High Low ABORHD No results within date range. ABSCREEN No results within date range. Hemoglobin A1C (%) Date Value 10/02/2024 7.7 07/16/2023 9.8 02/24/2023 10.7 02/21/2020 11.6 11/07/2018 9.3 07/26/2017 8.7 10/12/2014 10.7 12/06/2013 9.6 Hemoglobin A1c (%) Date Value 04/13/2016 8.2 10/10/2015 8.4 Hemoglobin A1C (POCT) (%) Date Value 03/05/2025 7.8 06/27/2024 10.2 03/27/2024 8.4 04/22/2023 12.0 11/23/2022 10.8 Recent Results (from the past 8760 hours) ECG COMPLETE Collection Time: 10/30/24 12:33 PM Result Value Ventricular Rate 71 Atrial Rate 71 P-R Interval 172 QRS Duration 98 QT Interval 388 QTC Calculation (Bazett) 421 Calculated P [place] -10 Calculated R [place] 58 Calculated T [place] 78 Impression NORMAL SINUS RHYTHM NORMAL ECG Confirmed by ASHLEY COLLINS MD ([id number]) on 11/08/2024 9:16:03 PM Recent Results (from the past 12183 hours) ECHO Collection Time: 10/19/24 9:40 AM Impression CONCLUSIONS: - Exam indication: limited for LV function - The left ventricle is small. There is mild concentric left ventricular hypertrophy. Left ventricular systolic function is normal. EF = 67 5% (2D biplane) Definity contrast used for endocardial border detection. Indeterminate left ventricular diastolic function. - Small, non significant intracavitary gradient seen within the left ventricle (apex): 2 mmHg, unchanged with Valsalva maneuver. - The right ventricle is normal in size. Right ventricular systolic function is low normal. - Estimated right ventricular systolic pressure is not reported due to an insufficient tricuspid regurgitation signal. Estimated right atrial pressure is 3 mmHg based on IVC assessment. - There are no significant valvular abnormalities. - Exam was compared with the prior echocardiographic exam performed on 07/19/2024. There is no significant change. * * * Final * * * Instructions Given to Patient: Instructions located in the after visit summary. Patient given verbal and written preop instructions and voices comprehension and compliance. I spent a total of 60 minutes on the date of the service which included preparing to see the patient, [id number] patient care, completing clinical documentation, obtaining and/or reviewing separately obtained history, performing a medically appropriate examination, counseling and educating the patient/family/caregiver, communicating with other HCPs (not separately reported), independently interpreting results (not separately reported), and communicating results to the patient/family/caregiver. SIGNATURE: Mel Aponte APRN.CNP PATIENT NAME: Shilo Hathaway DATE: March 29, 2025 TIME: 10:00 AM PAGER/CONTACT #: documented in this encounter [facility] 03-28-2025 Instructions Mel Aponte APRN.CNP - 03/28/2025 8:00 PM EDT PATIENT PREOPERATIVE INSTRUCTIONS No ref. provider found has scheduled you for your procedure at this surgery center: [facility]: [phone], [address] [place], [place] [address] Please read below carefully for your personalized instructions. Surgery: DATE: 04/05/2025 Your surgeon's office will call you with your ARRIVAL TIME for surgery the afternoon before surgery with a scheduled arrival time. If you are scheduled for a Wednesday surgery they will call you Wednesday for your arrival time. Please be aware that emergency situations arise, which may delay or change your surgical time. If this happens, we will notify you as soon as possible and regret any inconvenience. Dietary Restrictions: - No solid food or liquids after midnight. - Do not drink any alcohol after midnight the night before your surgery. Medications: Approved medications can be taken the morning of surgery with a sip of water. Pre Surgery Med Instructions Medication instructions ACETAMINOPHEN (TYLENOL ORAL) If you normally take this medication in the morning, it is ok to take the morning of surgery with a sip of water. aspirin 81 mg chewable tablet Follow prescriber's instructions. carvedilol (COREG) 6.25 mg tablet If you normally take this medication in the morning, it is ok to take the morning of surgery with a sip of water. clopidogrel (PLAVIX) 75 mg tablet Follow prescriber's instructions. escitalopram oxalate (LEXAPRO) 10 mg tablet If you normally take this medication in the morning, it is ok to take the morning of surgery with a sip of water. gabapentin (NEURONTIN) 600 mg tablet If you normally take this medication in the morning, it is ok to take the morning of surgery with a sip of water. hydrALAZINE (APRESOLINE) 25 mg tablet If you normally take this medication in the morning, it is ok to take the morning of surgery with a sip of water. insulin lispro (HUMALOG KWIKPEN) 100 unit/mL Follow prescriber's instructions. isosorbide mononitrate ER (IMDUR) 60 mg 24 hr tablet If you normally take this medication in the morning, it is ok to take the morning of surgery with a sip of water. MULTIVIT &MINERALS/FERROUS FUM (MULTI VITAMIN ORAL) Stop 7 days before surgery. NIFEdipine ER (PROCARDIA XL) 90 mg 24 hr tablet If you normally take this medication in the morning, it is ok to take the morning of surgery with a sip of water. rivaroxaban (XARELTO) 2.5 mg tablet Follow prescriber's instructions. rosuvastatin (CRESTOR) 20 mg tablet If you normally take this medication in the morning, it is ok to take the morning of surgery with a sip of water. tamsulosin (FLOMAX) 0.4 mg DO NOT TAKE THE MORNING OF SURGERY. AVS was given to patient and specific instructions for each medication reviewed. See medication list. Please continue to take blood pressure medications including day of surgery. Approved medications to take the morning of surgery with a sip of water: blood pressure, heart, thyroid, psych, seizure, and pain medications excluding NSAIDS. Use inhalers as prescribed. Please bring inhalers. For the following Medications, please HOLD THE MORNING OF SURGERY: - Angiotensin-Converting enzyme (TILA) Inhibitors: Lisinopril (Prinivil, Zestril, Qbrelis), Benazepril and amlodipine (Lotrel), Captopril, Benazapril (Lotensin), Monopril, Lisinopril and hydrochlorothiazide (Prinzide) - Angiotensin II receptor blockers (ARBs): Losartan (Cozaar), Valsartan (Diovan), Olmesartan (Benicar), Candesartan (Atacand), Irbesartan hydrochlorothiazide (Avalide) Preoperative Instructions for Patients with Diabetes Mellitus: Please follow up with the provider that manages your diabetes on how to prepare you for surgery. Any oral diabetic medications should be held day of surgery. For the following Medications, please HOLD THE MORNING OF SURGERY: Metformin (Glucophage), Pioglitazone (Actos), Glimepiride (Amaryl), Linagliptin (Tradjenta), Alogliptin (Nesina), Sitagliptin (Januvia), Saxagliptin (Onglyza) For the following Medications, please HOLD 2 DAYS PRIOR TO SURGERY: Glipizide (Glucotrol), Glyburide (DiaBeta and Glynase), Repaglinide (Prandin), Nateglinide (Starlix), Pramlintide (Symlin), Alogliptin/Metformin (Kazano) For the following Medications, please HOLD 3 DAYS PRIOR TO SURGERY: Canagliflozin (Invokana), Dapagliflozin (Farxiga), Empagliflozin (Jardiance), Canagliflozin and Metformin (Invokamet), Dapagliglozin and Metformin (Xigduo XR), Empagliflozin and Metformin (Glyxambi), Empagliflozin and Metformin (Syndardy) For the following Medications, please HOLD 4 DAYS PRIOR TO SURGERY: Ertugliflozin (Steglatro) For the following Medications, please HOLD 7 DAYS PRIOR TO SURGERY: ALL GLP-1 AGONISTS Lixisenatide (Adlyxin), Exenatide suspension (Bydureon BCise), Exenatide (Byetta), Tirzepatide (Mounjaro), Semaglutide injection (Ozempic), Semaglutide tablets (Rybelsus), Albiglutide (Tanzeum), Dulaglutide (Trulicity), Liraglutide (Victoza), Semaglutide (Wegovy), Liraglutide (Saxenda), Degludec/Liraglutide (Xultophy) Insulin Medication Instructions: Please follow up with the provider that manages your Insulin and how to prepare you for surgery. Blood Thinning Medications: - Stop NSAIDS (Ibuprofen, Advil, Aleve, Motrin, Celebrex, Mobic, etc.) 7 days before surgery, as directed by your surgeon. - If you take any of the following blood thinners, please contact your surgeon and the physician who prescribes it for you in order to get perioperative instructions as soon as possible Blood thinners: Aspirin,Coumadin, Plavix, Eliquis, Pradaxa, Xarelto, Lovenox, Brilinta, Effient, Savaysa, Arixtra etc. - Stop Vitamin E, fish oil, Ginko, Clara's Wort, flax seed oil, multivitamins, CBD oil, marijuana and other over the counter herbals and dietary supplements 7 days before surgery. - This would not apply to cancer patients who are prescribed Marinol or any other prescription form of marijuana or CBD. Pain Medications: - You may take Tylenol (Acetaminophen) or any of your current prescribed pain medications that do not contain aspirin or NSAIDS as needed. Weight Loss Medications: - Sympathomimetics such as Adipex-P (Phentermine): Stop 4 days before surgery. - Contrave (Naltrexone/Bupropion) Hold 2-3 days. - Qsymia (Phentermine/Topiramate - Please contact your prescribing provider for Pre op directions. ( depending on the patients dose this medication may need tapered off. They should get pre op directions from their prescribing provider.) Erectile Dysfunction Medications: If you take any medications for erectile dysfunction - Tadalafil (Cialis), Levitra, Sildenafil (Viagra), Vardenafil (Staxyn), please do not take these for 48 hours before surgery. If you take these medications for a different medical condition such as heart failure or pulmonary artery hypertension, please continue and take this medication the morning of surgery. If you start any new medications after today's visit, please contact the surgeon's office. Important Reminders: - If you have a stimulator, implant or pump that requires a remote please bring the remote with you day of surgery - If you use CPAP/BIPAP, bring the machine with you to the surgery center. - If you are prescribed inhalers for breathing, continue using them AND bring them to the surgery center. - Candy, mints, gum and tobacco products are NOT permitted the morning of surgery. - Hearing aids, dentures and glasses may be worn the morning of surgery. - NO jewelry, body piercings, makeup, hairpins or contacts are to be worn the day of surgery. - NO keys, wallet, watches, or purses - NO lotion, creams, powders or deodorants on the skin the day of surgery - Wear loose, comfortable clothing that will accommodate bandages. - Your length of stay will be determined by your surgeon - You will need to have someone else (Family or friend) drive you home once discharged from the hospital. You are not allowed to drive yourself home after surgery. - YOU MUST HAVE A RESPONSIBLE SANITATION SUPERINTENDENT 18 YEARS OR OLDER TAKE YOU HOME. A INJURY PREVENTION COORDINATOR, CAB OR UBER SANITATION SUPERINTENDENT CANNOT BE MADE A RESPONSIBLE SANITATION SUPERINTENDENT. - We recommend that a responsible person stays with you overnight to take care of you. - You cannot stay in a hotel alone after outpatient surgery. You will not be permitted to have your surgery, if you do not have someone to take care of you. --IF you are having a TOTAL KNEE, HIP REPLACEMENT OR ORTHOPEDIC SURGERY: -Ambulatory surgery center [facility] - orthopedic patients needing a walker should bring the walker into the building day of surgery. -Orthopedic patients having surgery [facility] listed as outpatient should bring their walker into the building. -Orthopedic patients having surgery [facility] listed as to be admitted should leave their walkers in the car or with a family member. Surgical scrub given day of PST. Oral hygiene and a shower or bath is required the evening before or the morning of surgery. Use the Hibiclens body wash supplied to you along with the instruction. It is recommended patients have a 72 hour period between getting a vaccine and date of surgery. If you develop symptoms such as a fever, cold, or flu, or have other changes to your health within TWO DAYS of scheduled surgery or the morning of surgery, please contact the surgery center above. Personal Belongings: - Leave ALL valuables and money at home or with family members. - You will need a form of ID and insurance card to check in the morning of surgery. - You will have to wear a hospital gown during your stay but if you wish to bring undergarments for after surgery you may. Current policy will allow for up to 2 visitors on the day of surgery/procedure. ASC Pre surgery - One visitor in Pre-surgery due to limited space. ASC PACU - No visitors in PACU unless it's a minor due to limited space. If you already have an Advance Directive, please fax a copy to [phone] or email to for it to be added to your chart. If you do not have an Advance Directive, you can find the appropriate form and more information at [email or web address]. We recommend that you complete the Advance Directive form found on the website and bring it with you the day of your surgery. It can be witnessed and scanned into your chart that day. Mel Aponte APRN.PARK ACTIVITIES COORDINATOR documented in this encounter [facility] 03-27-2025 Telephone encounter Note Prescription Refill Information The patient has been identified by name and date of : Yes Caregiver verified no other encounters exist for this prescription request: Yes Caregiver confirmed with patient/requestor that no other refills are due, in the near future, with this provider at this time: Yes The last office visit in the department: 03/05/2025 Does the patient have a future office visit with this provider/department: No Requested Prescriptions Pending Prescriptions Disp Refills rivaroxaban (XARELTO) 2.5 mg tablet 60 tablet 2 Sig: Take 1 tablet by mouth two times a day. Minoo Boone LPN March 27, 2025 2:52 PM [facility] 03-27-2025 Miscellaneous Notes Prescription Refill Information The patient has been identified by name and date of : Yes Caregiver verified no other encounters exist for this prescription request: Yes Caregiver confirmed with patient/requestor that no other refills are due, in the near future, with this provider at this time: Yes The last office visit in the department: 03/05/2025 Does the patient have a future office visit with this provider/department: No Requested Prescriptions Pending Prescriptions Disp Refills rivaroxaban (XARELTO) 2.5 mg tablet 60 tablet 2 Sig: Take 1 tablet by mouth two times a day. Minoo Boone LPN March 27, 2025 2:52 PM documented in this encounter [facility] 03-27-2025 Note HNO ID: [id number] Author: ARCHANA CORONA RN Service: ? Author Type: Registered Nurse Type: Progress Notes Filed: 03/29/2025 10:46 Note Text: [facility] 03-27-2025 History of Present illness Narrative documented in this encounter [facility] 03-21-2025 Telephone encounter Note Received Cardiac clearance from Dr. Rush's office. Reviewed patient's chart. Patient had a stent placed in October of 2024, his case was reviewed by Dr. Moran on 11/23/2024 in which he recommended the patient to continue baby aspirin while undergoing the procedure, while his Xarelto was held. He will be considered a high risk for his procedure due to his severe CAD and recent stenting. If he is unable to remain on aspirin while performing the surgery, he recommended holding off on the surgery until the patient completed one year of dual antiplatelet therapy. Please refer to his recommendation listed below: His Xarelto can be held 4 days prior. His Plavix can be held 5 days. However if at all possible the surgery should be done on the baby aspirin because he has stents. If it is felt by surgery that he has to be off aspirin because of high bleeding risk, then this can be stopped 5 to 10 days ahead, but there will be a risk of acute stent thrombosis that is unavoidable: It is not exceedingly high but probably less than 2% but if it occurs it can result in a severe or fatal stent thrombosis and infarct. I will defer the decision about aspirin to Dr. Rush. Patient's cardiovascular risk clearly will be high for any surgery but he is currently stable Eduin Coleman APRN.CNP [facility] 03-21-2025 Miscellaneous Notes Received Cardiac clearance from Dr. Rush's office. Reviewed patient's chart. Patient had a stent placed in October of 2024, his case was reviewed by Dr. Moran on 11/23/2024 in which he recommended the patient to continue baby aspirin while undergoing the procedure, while his Xarelto was held. He will be considered a high risk for his procedure due to his severe CAD and recent stenting. If he is unable to remain on aspirin while performing the surgery, he recommended holding off on the surgery until the patient completed one year of dual antiplatelet therapy. Please refer to his recommendation listed below: His Xarelto can be held 4 days prior. His Plavix can be held 5 days. However if at all possible the surgery should be done on the baby aspirin because he has stents. If it is felt by surgery that he has to be off aspirin because of high bleeding risk, then this can be stopped 5 to 10 days ahead, but there will be a risk of acute stent thrombosis that is unavoidable: It is not exceedingly high but probably less than 2% but if it occurs it can result in a severe or fatal stent thrombosis and infarct. I will defer the decision about aspirin to Dr. Rush. Patient's cardiovascular risk clearly will be high for any surgery but he is currently stable Eduin Coleman APRN.CNP documented in this encounter [facility] 03-20-2025 History of Present illness Narrative Images from the original note were not included. Thierry Rush [address] [facility] [address] [place] [address] Plastic Surgery Office Note CC: Pre Operative Visit HPI: Shilo is a 74 year old male here today to discuss TMR/RPNI and myodesis. Had symptomatic heart attack earlier this year. Previously stented... currently on ASA and Eliquis. PAST MEDICAL HISTORY Diagnosis Date Aortoiliac occlusive disease (HCC) Atherosclerotic heart disease of mentasta coronary artery without angina pectoris Carotid artery occlusion Carotid artery stenosis Cerebrovascular accident (CVA) (HCC) Coronary arteriosclerosis [place] 1998 Depressive disorder Disc disorder of lumbar region Diverticulitis of colon Diverticulitis of colon Essential tremor Gastroesophageal reflux disease Generalized anxiety disorder Hiatal hernia History of myocardial infarction Hyperlipidemia Hypertension Intervertebral disc disorder of lumbar region with myelopathy Irritable bowel syndrome Myocardial infarction (HCC) Old myocardial infarction Peripheral vascular disease PERS HX COLONIC POLYPS Preoperative testing 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 Sleep apnea SOB (shortness of breath) STEMI (ST elevation myocardial infarction) (HCC) Thrombosis of right femoral-femoral bypass graft Type 2 diabetes mellitus (HCC) PAST SURGICAL HISTORY Procedure Laterality Date AMPUTATION OF LOWER LEG Left 05/05/2022 Left above knee amputation AMPUTATION OF LOWER LEG Right 09/17/2023 Right above-knee amputation ANGIOPLASTY 1998, 2004, 2013 CAROTID ENDARTERECTOMY Bilateral right 02/2013, left 08/2001 COLONOSCOPY 05/26/2023 COLONOSCOPY FLX DX W/COLLJ SPEC WHEN PFRMD 2000 Colonoscopy with polypectomies COLONOSCOPY SCREENING 07/04/2021 tubular adenomas x5, severe diverticulosis ESOPHAGOGASTRODUODENOSCOPY TRANSORAL DIAGNOSTIC 2000 EGD reportedly normal EXPLORATION GROIN Left 04/29/2018 Left Groin Exploration, Thrombectomy of Left Limb of Axillo-Bifemoral Bypass, Revision of Left Femoral Anastomosis INSERT INTRACORONARY STENT 1998 RCA LAPAROSCOPY SURG CHOLECYSTECTOMY 1998 Cholecystectomy, lap LEFT HEART CATH,PERCUTANEOUS 1998 Cardiac cath, L heart PAST SURGICAL HISTORY OF Carotid stenosis PAST SURGICAL HISTORY OF Bilateral 12/25/2016 Axillo bifem bypass PAST SURGICAL HISTORY OF ureter removal STENT PLACEMENT 1998 BMS RCA STENT PLACEMENT 11/2013 MARVIN RCA FAMILY HISTORY Problem Relation Age of Onset Ischemic Heart Disease Father Cancer Father Coronary Artery Disease Father Breast Cancer Mother Social History Tobacco Use Smoking status: Former Current packs/day: 0.00 Types: Cigarettes Quit date: 03/06/1999 Years since quittin.0 Smokeless tobacco: Never Tobacco comments: Start date: 1969; Stop date: 1998 Vaping Use Vaping status: Never Used Substance Use Topics Alcohol use: No Comment: abstinent x 6 yrs Drug use: No Current Outpatient Medications Medication Sig isosorbide mononitrate ER (IMDUR) 60 mg 24 hr tablet Take 1 tablet by mouth two times a day. carvedilol (COREG) 6.25 mg tablet Take 1 tablet by mouth two times a day with meals. hydrALAZINE (APRESOLINE) 25 mg tablet Take 3 tablets by mouth every 8 hours. NIFEdipine ER (PROCARDIA XL) 90 mg 24 hr tablet Take 1 tablet by mouth once daily. rosuvastatin (CRESTOR) 20 mg tablet Take 1 tablet by mouth once daily. pantoprazole DR (PROTONIX) 40 mg tablet Take 40 mg by mouth once daily as needed. insulin lispro (HUMALOG KWIKPEN) 100 unit/mL INJECT 12 UNITS SUBCUTANEOUSLY 3 TIMES DAILY BEFORE MEALS -ADD 2 UNITS IF GLUCOSE IS OVER 250 tamsulosin (FLOMAX) 0.4 mg Take 1 capsule by mouth once daily nitroglycerin sublingual (NITROQUICK) 0.4 mg SL tablet Take 1 tablet by mouth as needed for chest pain. FOR CHEST PAIN. IF NO PAIN RELIEF, CALL 911 ascorbic acid, vitamin C, (VITAMIN C) 500 mg tablet Take 1 tablet by mouth once daily. gabapentin (NEURONTIN) 600 mg tablet Take 600 mg by mouth four times daily. aspirin 81 mg chewable tablet Take 1 tablet by mouth once daily. rivaroxaban (XARELTO) 2.5 mg tablet Take 1 tablet by mouth two times a day. TRESIBA FLEXTOUCH U-100 100 unit/mL (3 mL) injection pen Inject 20 Units subcutaneously daily at bedtime. clopidogrel (PLAVIX) 75 mg tablet Take 1 tablet by mouth once daily escitalopram oxalate (LEXAPRO) 10 mg tablet Take 1 tablet by mouth once daily. UNIFINE PENTIPS PLUS 32 gauge x 5/32 Use for insulin pen injections 5 times daily, as directed. DX: E11.42, E11.65, Z79.4 ACETAMINOPHEN (TYLENOL ORAL) Take 1-2 tablets by mouth every 6 hours as needed. MULTIVIT &MINERALS/FERROUS FUM (MULTI VITAMIN ORAL) Take by mouth once daily. No current facility-administered medications for this visit. ALLERGIES Allergen Reactions Atorvastatin Myalgia Levofloxacin Unknown Metformin Diarrhea REVIEW OF SYSTEMS: ROS PHYSICAL EXAM: There were no vitals taken for this visit. CONSTITUTIONAL: awake, alert, cooperative, no apparent distress, and appears stated age Right aka - painful, +phantom pain ASSESSMENT / PLAN: 74 year old y/o male with Right AKA and nerve/phantom pain. Plan for - Right myodesis, TMR/RPNI Needs cardiac clearance, over night stay The risks/benefits of surgery were discussed. I have explained the risks and benefits including but not limited to infection, hematoma, seroma, open wounds, chronic wounds, prolonged time off and possibility for additional surgery. I have answered all patients questions to the best of my ability and to the patients satisfaction. The patient voiced understanding of the above and had no further questions and agreed to proceed with surgery. Increased risk of cardiac and healing complications secondary to other healthy issues. A total of 30 minutes was spent in direct patient contact. Greater than 50% of the direct patient contact time was spent in counseling or coordination of care. The patient is seen and examined by Dr. Rush and the following reflects his/her service. Scribed by Lyn Robin MA I agree with the Chief Complaint, ROS, and Past Histories independently gathered by the clinical desktop support engineer and the remaining scribed note accurately describes my personal service to the patient. documented in this encounter [facility] 03-20-2025 Note [facility] 03-19-2025 Telephone encounter Note Transitional Care Management (TCM) [facility] Monitoring [facility] Provider Action / FYI: na SUMMARY: Outreach type: INITIAL OUTREACH Discharge Network Status: In-Network Discharge Source of Patient: [facility] TCM Discharge Report Patient discharged from [place] on 02.26.25. Admitted for Chest pain. . Contact made with patient: No - 2nd unsuccessful attempt - end outreach and close encounter. Keisha Saunders March 19, 2025 10:25 AM [facility] 03-19-2025 Miscellaneous Notes Transitional Care Management (TCM) [facility] Monitoring [facility] Provider Action / FYI: na SUMMARY: Outreach type: INITIAL OUTREACH Discharge Network Status: In-Network Discharge Source of Patient: [facility] TCM Discharge Report Patient discharged from [place] on 02.26.25. Admitted for Chest pain. . Contact made with patient: No - 2nd unsuccessful attempt - end outreach and close encounter. Keisha Saunders March 19, 2025 10:25 AM documented in this encounter [facility] 03-15-2025 Telephone encounter Note Transitional Care Management (TCM) [facility] Provider Action / FYI: N/a SUMMARY: Outreach type: INITIAL OUTREACH Discharge Network Status: In-Network Discharge Source of Patient: [facility] TCM Discharge Report Patient discharged from [place] on 02/26/2025. Admitted for Chest pain. Contact made with patient: No - next outreach attempt will be on next business day. Anita Banuelos March 15, 2025 1:36 PM [facility] 03-15-2025 Miscellaneous Notes Transitional Care Management (TCM) [facility] Provider Action / FYI: N/a SUMMARY: Outreach type: INITIAL OUTREACH Discharge Network Status: In-Network Discharge Source of Patient: [facility] TCM Discharge Report Patient discharged from [place] [place] on 02/26/2025. Admitted for Chest pain. Contact made with patient: No - next outreach attempt will be on next business day. Anita Banuelos March 15, 2025 1:36 PM documented in this encounter [facility] 03-05-2025 Telephone encounter Note Record ID: [id number] Patient name: Shilo Hathaway Date: March 05, 2025 - 02:53 Administered by: ANGELA Protocol: -> Great! Now we are in a secure chat environment. Protecting your health information is important to us. Ok, let's get started. Please verify your name and date of . Please click on the button with your first name. -> Shilo Got it. On to the next question... Select the button with your last name. -> Renetta Got it, thank you. Please enter your date of in MM/DD/YYYY format:(e.g., 10/08/1968 for Oct 08, 1968) -> 1950 Thank you for verifying your information. I'd like to ask you a few questions about how your recovery is going. Since leaving the hospital, do you have any new or worsening symptoms? -> No I'm glad to hear that. We encourage a follow-up appointment with a provider to oversee your recovery. It appears that you do not have a follow-up appointment with a provider. Please contact the 12/04 Appointment Center at [ ](tel:[phone]) to schedule a follow-up appointment. Thank you for your time and allowing us to care for you. We will check in on you over the next four weeks to ensure you continue to recover and support your needs. In the meantime, please reach out to your PCP for any questions or concerns.Thank you for choosing [facility]! -> Thank you for your time and allowing us to care for you. We will check in on you over the next four weeks to ensure you continue to recover and support your needs. In the meantime, please reach out to your PCP for any questions or concerns.Thank you for choosing [facility]! -> Great! Now we are in a secure chat environment. Protecting your health information is important to us. Ok, let's get started. Please verify your name and date of . Please click on the button with your first name. -> Great! Now we are in a secure chat environment. Protecting your health information is important to us. Ok, let's get started. Please verify your name and date of . Please click on the button with your first name. -> Shilo Got it. On to the next question... Select the button with your last name. -> Renetta Got it, thank you. Please enter your date of in MM/DD/YYYY format:(e.g., 10/08/1968 for Oct 08, 1968) -> 1950 Thank you for verifying your information. I'd like to ask you a few questions about how your recovery is going. Have you experienced any new or worsening symptoms since returning home? -> No I'm glad to hear that. Have you had a hospital follow-up appointment yet since your discharge? -> Yes [facility] 03-05-2025 Miscellaneous Notes Record ID: [id number] Patient name: Shilo Hathaway Date: March 05, 2025 - 02:53 Administered by: ANGELA Protocol: -> Great! Now we are in a secure chat environment. Protecting your health information is important to us. Ok, let's get started. Please verify your name and date of . Please click on the button with your first name. -> Shilo Got it. On to the next question... Select the button with your last name. -> Renetat Got it, thank you. Please enter your date of in MM/DD/YYYY format:(e.g., 10/08/1968 for Oct 08, 1968) -> 1950 Thank you for verifying your information. I'd like to ask you a few questions about how your recovery is going. Since leaving the hospital, do you have any new or worsening symptoms? -> No I'm glad to hear that. We encourage a follow-up appointment with a provider to oversee your recovery. It appears that you do not have a follow-up appointment with a provider. Please contact the 12/04 Appointment Center at [ ](tel:[phone]) to schedule a follow-up appointment. Thank you for your time and allowing us to care for you. We will check in on you over the next four weeks to ensure you continue to recover and support your needs. In the meantime, please reach out to your PCP for any questions or concerns.Thank you for choosing [facility]! -> Thank you for your time and allowing us to care for you. We will check in on you over the next four weeks to ensure you continue to recover and support your needs. In the meantime, please reach out to your PCP for any questions or concerns.Thank you for choosing [facility]! -> Great! Now we are in a secure chat environment. Protecting your health information is important to us. Ok, let's get started. Please verify your name and date of . Please click on the button with your first name. -> Great! Now we are in a secure chat environment. Protecting your health information is important to us. Ok, let's get started. Please verify your name and date of . Please click on the button with your first name. -> Shilo Got it. On to the next question... Select the button with your last name. -> Renetta Got it, thank you. Please enter your date of in MM/DD/YYYY format:(e.g., 10/08/1968 for Oct [birth year], 1968) -> 1950 Thank you for verifying your information. I'd like to ask you a few questions about how your recovery is going. Have you experienced any new or worsening symptoms since returning home? -> No I'm glad to hear that. Have you had a hospital follow-up appointment yet since your discharge? -> Yes documented in this encounter [facility] 03-05-2025 Note [facility] 03-05-2025 History of Present illness Narrative Shilo Hathaway is a 74-year-old male with a history of CAD, presenting for follow-up after a recent hospitalization for chest pain and elevated blood pressure. CAD: - Recent hospitalization for chest pain and elevated blood pressure (220 mmHg). - Took nitroglycerin at home before calling EMS. - Reports burning pain, different from previous [place]. - New onset dyspnea, particularly when lying down; no associated dizziness or lightheadedness. - No new anxiety or nervousness. - Recent addition of isosorbide mononitrate (Imdur) BID. - Continues on aspirin, Plavix, Xarelto, nifedipine (Procardia), hydralazine TID, and carvedilol 6.25 mg. - Awaiting echocardiogram scheduling. Diabetes Mellitus: - Blood sugars generally under 200 mg/dL; occasional hypoglycemia with sweating when levels drop to 50 mg/dL. - Recent A1c: 7.8%, slightly up from 7.7% previously. - Uses a continuous glucose monitor. PAST MEDICAL HISTORY Diagnosis Date Aortoiliac occlusive disease (HCC) Atherosclerotic heart disease of mentasta coronary artery without angina pectoris Carotid artery occlusion Carotid artery stenosis Cerebrovascular accident (CVA) ([facility]) Coronary arteriosclerosis [place] 1998 Depressive disorder Disc disorder of lumbar region Diverticulitis of colon Diverticulitis of colon Essential tremor Gastroesophageal reflux disease Generalized anxiety disorder Hiatal hernia History of myocardial infarction Hyperlipidemia Hypertension Intervertebral disc disorder of lumbar region with myelopathy Irritable bowel syndrome Myocardial infarction (HCC) Old myocardial infarction Peripheral vascular disease PERS HX COLONIC POLYPS Preoperative testing 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 Sleep apnea SOB (shortness of breath) STEMI (ST elevation myocardial infarction) ([facility]) Thrombosis of right femoral-femoral bypass graft Type 2 diabetes mellitus ([facility]) PAST SURGICAL HISTORY Procedure Laterality Date AMPUTATION OF LOWER LEG Left 05/05/2022 Left above knee amputation AMPUTATION OF LOWER LEG Right 09/17/2023 Right above-knee amputation ANGIOPLASTY 1998, 2004, 2013 CAROTID ENDARTERECTOMY Bilateral right 02/2013, left 08/2001 COLONOSCOPY 05/26/2023 COLONOSCOPY FLX DX W/COLLJ SPEC WHEN PFRMD 2000 Colonoscopy with polypectomies COLONOSCOPY SCREENING 07/04/2021 tubular adenomas x5, severe diverticulosis ESOPHAGOGASTRODUODENOSCOPY TRANSORAL DIAGNOSTIC 2000 EGD reportedly normal EXPLORATION GROIN Left 04/29/2018 Left Groin Exploration, Thrombectomy of Left Limb of Axillo-Bifemoral Bypass, Revision of Left Femoral Anastomosis INSERT INTRACORONARY STENT 1998 RCA LAPAROSCOPY SURG CHOLECYSTECTOMY 1997 Cholecystectomy, lap LEFT HEART CATH,PERCUTANEOUS 1998 Cardiac cath, L heart PAST SURGICAL HISTORY OF Carotid stenosis PAST SURGICAL HISTORY OF Bilateral 12/25/2016 Axillo bifem bypass PAST SURGICAL HISTORY OF ureter removal STENT PLACEMENT 1998 BMS RCA STENT PLACEMENT 11/2013 MARVIN RCA Allergies: ALLERGIES Allergen Reactions Atorvastatin Myalgia Levofloxacin Unknown Metformin Diarrhea Medications: isosorbide mononitrate ER (IMDUR) 60 mg 24 hr tablet Take 1 tablet by mouth two times a day. carvedilol (COREG) 6.25 mg tablet Take 1 tablet by mouth two times a day with meals. hydrALAZINE (APRESOLINE) 25 mg tablet Take 3 tablets by mouth every 8 hours. NIFEdipine ER (PROCARDIA XL) 90 mg 24 hr tablet Take 1 tablet by mouth once daily. rosuvastatin (CRESTOR) 20 mg tablet Take 1 tablet by mouth once daily. pantoprazole DR (PROTONIX) 40 mg tablet Take 40 mg by mouth once daily as needed. insulin lispro (HUMALOG KWIKPEN) 100 unit/mL INJECT 12 UNITS SUBCUTANEOUSLY 3 TIMES DAILY BEFORE MEALS -ADD 2 UNITS IF GLUCOSE IS OVER 250 tamsulosin (FLOMAX) 0.4 mg Take 1 capsule by mouth once daily nitroglycerin sublingual (NITROQUICK) 0.4 mg SL tablet Take 1 tablet by mouth as needed for chest pain. FOR CHEST PAIN. IF NO PAIN RELIEF, CALL 911 ascorbic acid, vitamin C, (VITAMIN C) 500 mg tablet Take 1 tablet by mouth once daily. gabapentin (NEURONTIN) 600 mg tablet Take 600 mg by mouth four times daily. aspirin 81 mg chewable tablet Take 1 tablet by mouth once daily. rivaroxaban (XARELTO) 2.5 mg tablet Take 1 tablet by mouth two times a day. TRESIBA FLEXTOUCH U-100 100 unit/mL (3 mL) injection pen Inject 20 Units subcutaneously daily at bedtime. clopidogrel (PLAVIX) 75 mg tablet Take 1 tablet by mouth once daily escitalopram oxalate (LEXAPRO) 10 mg tablet Take 1 tablet by mouth once daily. UNIFINE PENTIPS PLUS 32 gauge x 5/32 Use for insulin pen injections 5 times daily, as directed. DX: E11.42, E11.65, Z79.4 ACETAMINOPHEN (TYLENOL ORAL) Take 1-2 tablets by mouth every 6 hours as needed. MULTIVIT &MINERALS/FERROUS FUM (MULTI VITAMIN ORAL) Take by mouth once daily. Review of Systems Respiratory: Positive for shortness of breath. Negative for cough and wheezing. Cardiovascular: Positive for chest pain. Objective BP 134/69 Pulse 78 Physical Exam Constitutional: Appearance: He is not ill-appearing. Cardiovascular: Rate and Rhythm: Normal rate and regular rhythm. Heart sounds: Normal heart sounds. Pulmonary: Breath sounds: Normal breath sounds. Musculoskeletal: Right Lower Extremity: Right leg is amputated above knee. Left Lower Extremity: Left leg is amputated above knee. Psychiatric: Mood and Affect: Mood normal. Assessment and Plan 1. Type 2 diabetes mellitus with diabetic neuropathy, with long-term current use of insulin ([facility]) (E11.40) - Blood glucose levels are generally stable, with occasional hypoglycemic episodes noted. - Recent A1c is 7.8%, slightly increased from previous 7.7%. - Continue current insulin regimen and monitoring with continuous glucose monitor. - Patient understands and agrees with the management plan. 2. PAD (peripheral artery disease) (I73.9) - Recent hospitalization due to chest pain and elevated blood pressure (220 mmHg); EMS was called. - New medications initiated during hospitalization include isosorbide mononitrate (Imdur) BID. - Patient reports new onset of dyspnea, particularly when lying down, since starting isosorbide. - Discussed potential side effects of isosorbide, including dyspnea, though rare per UTD - Advised patient to contact cardiology [employer] to discuss symptoms and potential need for medication adjustment. - No recent echocardiogram performed; patient to follow up with cardiology to expedite scheduling of repeat echocardiogram as previously ordered for October. - Continue current medications: aspirin, clopidogrel (Plavix), rivaroxaban (Xarelto), nifedipine (Procardia), hydralazine TID, and carvedilol 6.25 mg. - Patient advised to monitor for any worsening symptoms and to report back if necessary. Lyubov Hernandez APRN.NATHALY Recording using [employer] software for draft documentation of the visit was discussed with the patient/authorized solar manufacturer's representative; all questions welcomed and answered. Patient/authorized solar manufacturer's representative agreed to proceed documented in this encounter [facility] 02-28-2025 Instructions Eduin Coleman APRN.CNP - 02/28/2025 3:29 PM EDT Continue current regimen. Please call and complete your pending echocardiogram. Please pick your prescriptions and let me know if you need any refills. Follow up in 6 months with [facility] or Dr. Moran. Please call if you have any questions or concerns. documented in this encounter [facility] 02-28-2025 History of Present illness Narrative PRIMARY CARE PHYSICIAN: Paulina [facility] [address] [place] [address] [place] [address] Chief Complaint Patient presents with: CARD Follow Up 3 Month: HFrEF HISTORY OF PRESENT ILLNESS: Mr. Hathaway is a 73 year old male who has a past medical history of sciatic pain, diabetes type 2, HFrEF, CAD, hyperlipidemia s/p vascular bypass, NSTEMI, PAD, lung nodule, GERD, polyps, AKA and CVA comes into the office for follow up. Patient is known to Dr. Moran, who first saw the patient in 2017 to establish cardiac care. During this time patient previously saw a different ball truing machine operator at outside hospital in which she was changing care over to Dr. Moran. He does have a major history of listed surgery in which he follows vascular closely with. He did have a history of a carotid enterectomy, with uncontrolled diabetes and peripheral neuropathy. He did have a stroke back in early as well as occlusion of his common and external iliac stents. He did have a exactly 2 biprofunda bypass on 05/01 and a left AKA on 05/05. During his appointment back in 2016, he was positive for claudication, but denying any chest pain, shortness of breath or orthopnea. He did previously had a stress test which showed no inducible ischemia or scarred myocardium. He has had echocardiogram which showed normal EF as well as a stable EKG. Over the years Dr. Moran continue to monitor his symptoms with minimal cardiac complaints. He was last seen in office on 11/11/2021 in which he previously had echocardiogram August 2020 showing EF of 70%, and had stable blood pressures. He was recommended for appropriate diabetes management as well as close follow-up with his vascular surgeon. He then was seen on 05/15/2022 in which she had elevated troponins around 400s. He was recommended for heart catheterization during this time, but was unable to hold his anticoagulation due to his GA and biprofunda bypass. He was seen in office on 07/12/2024 in which he was doing well with no cardiac complaints. He continue to follow closely with vascular who is help managing his blood pressures and peripheral vascular disease. He was recommended for repeat echocardiogram, due to his previous LV dysfunction. His repeat echocardiogram was performed on 07/09/2024, showed an EF of 60%, normal wall motion, normal LA/RA with no significant valvular abnormalities and no signs of pericardial effusion. He then went to the ED in September 2024 for chest pain, in which she was diagnosed with a STEMI. He then had a heart condition which showed 50% narrowing of the left main, LAD with multiple lesions, circumflex with severe disease in the RCA with severe calcified disease. He also had in-stent stenosis. He was not recommended for CABG, was recommended for medical treatment. He was last seen in office on 11/23/[address] Moran, in which he continued to do well and denied any cardiac complaints. He was recommended to continue his current regimen and follow-up Today he feels well with no cardiac complaints. He states that his blood pressures have been stable at home between 120-130's and he denies any chest pain, orthopnea or shortness of breath. Reviewed medications as well as previous heart catheterization with patient. At this time, will recommend continue current regimen. Patient agreeable plan of care Pt denies chest pain, leg swelling, shortness of breath, heart palpitations, orthopnea, cough, fever, dizziness, near syncope or syncope, nausea, vomiting, diaphoresis, or falls. Reviewed medications, recent blood work, and testing. Reviewed with patient and adjusted as needed : PMH, PSH, Fam hx, Social hx, Allergies. Medications: Current Outpatient Medications Medication Sig Dispense Refill pantoprazole DR (PROTONIX) 40 mg tablet Take 40 mg by mouth once daily as needed. insulin lispro (HUMALOG KWIKPEN) 100 unit/mL INJECT 12 UNITS SUBCUTANEOUSLY 3 TIMES DAILY BEFORE MEALS -ADD 2 UNITS IF GLUCOSE IS OVER 250 15 mL 5 tamsulosin (FLOMAX) 0.4 mg Take 1 capsule by mouth once daily 30 capsule 5 nitroglycerin sublingual (NITROQUICK) 0.4 mg SL tablet Take 1 tablet by mouth as needed for chest pain. FOR CHEST PAIN. IF NO PAIN RELIEF, CALL 911 25 tablet 1 ascorbic acid, vitamin C, (VITAMIN C) 500 mg tablet Take 1 tablet by mouth once daily. 30 tablet 2 gabapentin (NEURONTIN) 600 mg tablet Take 600 mg by mouth four times daily. aspirin 81 mg chewable tablet Take 1 tablet by mouth once daily. 30 tablet 2 rivaroxaban (XARELTO) 2.5 mg tablet Take 1 tablet by mouth two times a day. 60 tablet 2 TRESIBA FLEXTOUCH U-100 100 unit/mL (3 mL) injection pen Inject 20 Units subcutaneously daily at bedtime. 15 mL 3 clopidogrel (PLAVIX) 75 mg tablet Take 1 tablet by mouth once daily 90 tablet 3 escitalopram oxalate (LEXAPRO) 10 mg tablet Take 1 tablet by mouth once daily. 90 tablet 3 UNIFINE PENTIPS PLUS 32 gauge x 5/32 Use for insulin pen injections 5 times daily, as directed. DX: E11.42, E11.65, Z79.4 500 Each 3 ACETAMINOPHEN (TYLENOL ORAL) Take 1-2 tablets by mouth every 6 hours as needed. MULTIVIT &MINERALS/FERROUS FUM (MULTI VITAMIN ORAL) Take by mouth once daily. isosorbide mononitrate ER (IMDUR) 60 mg 24 hr tablet Take 1 tablet by mouth two times a day. 180 tablet 3 carvedilol (COREG) 6.25 mg tablet Take 1 tablet by mouth two times a day with meals. 180 tablet 3 hydrALAZINE (APRESOLINE) 25 mg tablet Take 3 tablets by mouth every 8 hours. 270 tablet 11 NIFEdipine ER (PROCARDIA XL) 90 mg 24 hr tablet Take 1 tablet by mouth once daily. 90 tablet 3 rosuvastatin (CRESTOR) 20 mg tablet Take 1 tablet by mouth once daily. 90 tablet 3 No current facility-administered medications for this visit. Review of Systems Constitutional: Negative for activity change, appetite change, chills, diaphoresis, fatigue, fever and unexpected weight change. HENT: Negative for facial swelling and trouble swallowing. Eyes: Negative for visual disturbance. Respiratory: Negative for apnea, cough, chest tightness, shortness of breath, wheezing and stridor. Cardiovascular: Negative for chest pain, palpitations and leg swelling. Gastrointestinal: Negative for abdominal distention, abdominal pain, blood in stool, nausea and vomiting. Genitourinary: Negative for hematuria. Musculoskeletal: Negative for arthralgias and myalgias. Neurological: Negative for dizziness, syncope, speech difficulty, weakness, light-headedness, numbness and headaches. Psychiatric/Behavioral: Negative for confusion and sleep disturbance. Physical Examination: Vitals:BP 142/62 Pulse 77 Wt 157 lb (71.2kg) SpO2 95% Last 2 Encounter Wt Readings: Date: Wt: 03/27/2024 (0 kg) 11/30/2023 (0 kg) Physical Exam Vitals reviewed. Constitutional: Appearance: Normal appearance. HENT: Head: Normocephalic. Nose: Nose normal. Eyes: Pupils: Pupils are equal, round, and reactive to light. Neck: Vascular: No carotid bruit. Cardiovascular: Rate and Rhythm: Normal rate and regular rhythm. Pulses: Normal pulses. Heart sounds: Normal heart sounds. No murmur heard. No friction rub. No gallop. Pulmonary: Effort: Pulmonary effort is normal. No respiratory distress. Breath sounds: Normal breath sounds. No stridor. No wheezing, rhonchi or rales. Chest: Chest wall: No tenderness. Abdominal: General: Bowel sounds are normal. There is no distension. Palpations: Abdomen is soft. There is no mass. Tenderness: There is no abdominal tenderness. There is no guarding. Musculoskeletal: General: Deformity (Bilateral AKA) present. Normal range of motion. Skin: General: Skin is warm and dry. Neurological: General: No focal deficit present. Mental Status: He is alert and oriented to person, place, and time. Motor: No weakness. Gait: Gait normal. Psychiatric: Mood and Affect: Mood normal. Behavior: Behavior normal. Prior Cardiac Testing EKG 09/14/2024: -Sinus tachycardia Limited Echo 10/19/2024: -EF 35% CONCLUSIONS: - Exam indication: limited for LV function - The left ventricle is small. There is mild concentric left ventricular hypertrophy. Left ventricular systolic function is normal. EF = 67 5% (2D biplane) Definity contrast used for endocardial border detection. Indeterminate left ventricular diastolic function. - Small, non significant intracavitary gradient seen within the left ventricle (apex): 2 mmHg, unchanged with Valsalva maneuver. - The right ventricle is normal in size. Right ventricular systolic function is low normal. - Estimated right ventricular systolic pressure is not reported due to an insufficient tricuspid regurgitation signal. Estimated right atrial pressure is 3 mmHg based on IVC assessment. - There are no significant valvular abnormalities. - Exam was compared with the prior echocardiographic exam performed on 07/19/2024. There is no significant change Heart Catheterization 10/30/2024: + + PCI SUMMARY + + Procedures Performed: 1. Successful 1.25 addie rotational atherectomy of the RCA. 2. Successful IVUS guided PCI of the proximal to mid LAD with a 3.0 x 38 mm Xience Skypoint MARVIN; post-dilated with a 3.5 mm NC balloon. 3. Successful IVUS guided PCI of the mid RCA ISR and mentasta disease with 3.0 x 30 mm AGENT Paclitaxel coated balloon. 4. Successful IVUS guided PCI of the distal RCA ISR and mentasta disease with 3.0 x 30 mm AGENT Paclitaxel coated balloon. +----+ PLAN +----+ Plan: 1. Aspirin 81 mg daily 2. Clopidogrel 75 mg daily for at least 12 months 3. Lipid lowering therapy: Rosuvastatin 40 mg/d 4. Radial band protocol 5. Cardiac Rehabilitation ordered 6. Transfer to inpatient team Aggressive risk factor modification as appropriate. -- BP Goal < 130/80 with nonpharmacologic and medical therapy -- LDL goal 50% reduction AND level < 55-70 mg/dL using max tolerated statin +/- adjuvant therapy -- HbA1C < 7% -- Healthy diet and exercise +/- weight loss if appropriate. Stress test 04/24/2022: CONCLUSIONS: 1. SPECT Perfusion Study: Normal. 2. There is no scintigraphic evidence for inducible ischemia. 3. No evidence of scarred myocardium. 4. Left ventricle is normal in size. The left ventricle systolic function is normal. 5. Right ventricle is normal in size. The right ventricle systolic function is normal. 6. This is a low risk scan. Gated Stress FBP Gated Rest FBP LVEF % 67 69 Assessment and Plan: ASSESSMENT/PLAN: 1. HFrEF (heart failure with reduced ejection fraction) ([facility]) - ICD9: 428.20, ICD10: I50.20 (primary diagnosis) -Ef 35% noted on echocardiogram on 05/12/2022. -Patient currently feels well with no cardiac complaints -Currently being managed with Imdur 60 mg, hydralazine 25 mg, Coreg 6.25 mg, Procardia 90 mg, and spirolactone 25 mg -Repeat echocardiogram ordered to reevaluate -Continue current regimen -Educated on importance of daily weights, daily blood pressure monitoring, and maintaining a cardiac diet. -Discussed foods to avoid such as canned foods, lunch meats, frozen meals, stein, sausage, and restaurant meals. -Encouraged to maintain a 2 L fluid restriction. 2. CAD S/P percutaneous coronary angioplasty - ICD9: 414.00, V45.82, ICD10: I25.10, Z98.61 -S/p PCI to RCA pn 10/30/2024 -Currently being managed with aspirin, Plavix, Coreg, Crestor, Procardia and Xarelto -Continue current regimen 3. Mixed hyperlipidemia - ICD9: 272.2, ICD10: E78.2 -On Crestor 20 mg -Continue current regimen -Encouraged healthy lifestyle changes including exercise and diet 4. PAD (peripheral artery disease) (HCC) - ICD9: 443.9, ICD10: I73.9 -Currently being managed by Vascular -Currently being managed with regimen listed in #2 -Continue current regimen 5. Hypertension - ICD9: 401.9, ICD10: I10 -BP 142/62 at time of visit -Currently being managed with regimen listed in #1 -Goal <130/80 -Continue current regimen -Educated patient to monitor blood pressure 1 hour after taking blood pressure medications and write down results to keep for future appointment. 6. S/P vascular bypass - ICD9: V45.89, ICD10: Z95.828 -Personal history -Continue current regimen 7. History of CVA (cerebrovascular accident) - ICD9: V12.54, ICD10: Z86.73 -Personal history -Continue current regimen 8. Type 2 diabetes mellitus with diabetic neuropathy, with long-term current use of insulin (HCC) - ICD9: 250.60, 357.2, V58.67, ICD10: E11.40, Z79.4 -Personal history -Continue current regimen Eduin Colmean APRN.[employer] COORDINATOR Plan: Continue current regimen, follow up in 6 months Follow up planning: Return in about 6 months (around 08/30/2025) for Follow-up in 6 months with [facility] or Dr. Moran . Medical Decision Making: Problems: Moderate: 2+ stable chronic illnesses Data: Unique test result(s) reviewed: 2 Risk: Low: Low risk from testing/treatment Medical Decision Making Level: 3 - Low Some elements have been copied from my note on 07/12/2024, including the physical exam completed in entirety today, but have been updated where appropriate, and reflect current medical decision making from today, 02/28/2025. The above note was partially created using a dictation recognition software. A reasonable attempt has been made to correct any errors. I have confirmed and edited as necessary the PFSH and information obtained by others. Reviewed with patient to call office regarding symptoms and reviewed with patient that if the patient begins having increasing symptoms or if their symptoms became worse in severity to call 911 and present to the closest emergency or urgent care department for further evaluation. documented in this encounter [facility] 02-28-2025 Terence Edmond [facility] 02-27-2025 Telephone encounter Note Record ID: [id number] Patient name: Shilo Hathaway Date: February 27, 2025 - 03:14 Administered by: ANGELA Protocol: -> Great! Now we are in a secure chat environment. Protecting your health information is important to us. Ok, let's get started. Please verify your name and date of . Please click on the button with your first name. -> Shilo Got it. On to the next question... Select the button with your last name. -> Renetta Got it, thank you. Please enter your date of in MM/DD/YYYY format:(e.g., 10/08/1968 for Oct 08, 1968) -> 1950 Thank you for verifying your information. I'd like to ask you a few questions about how your recovery is going. Since leaving the hospital, do you have any new or worsening symptoms? -> No [facility] 02-27-2025 Miscellaneous Notes Record ID: [id number] Patient name: Shilo Hathaway Date: February 27, 2025 - 03:14 Administered by: ANGELA Protocol: -> Great! Now we are in a secure chat environment. Protecting your health information is important to us. Ok, let's get started. Please verify your name and date of . Please click on the button with your first name. -> Shilo Got it. On to the next question... Select the button with your last name. -> Renetta Got it, thank you. Please enter your date of in MM/DD/YYYY format:(e.g., 10/08/1968 for Oct 08, 1968) -> 1950 Thank you for verifying your information. I'd like to ask you a few questions about how your recovery is going. Since leaving the hospital, do you have any new or worsening symptoms? -> No documented in this encounter [facility] 02-26-2025 Note [facility] 02-25-2025 Note [facility] 02-24-2025 Note [facility] 01-29-2025 Note [facility] 01-29-2025 History of Present illness Narrative Agusto Lao is a 74-year-old male with a history of CAD, bilateral lower extremity amputations, and CKD, presenting for follow-up. Coronary Artery Disease: - Recent visit with Dr. Moran on 11/23. - Underwent stent revision; informed about a maker lesion. - Advised that open heart surgery is not feasible due to lack of suitable attachment sites for new arteries. - Scheduled to see Dr. Coleman in a couple of weeks for follow up. Diabetes , hyperlipidemia - Recent blood work in October showed improvement. Chronic Kidney Disease: - Recent evaluation by children's institution attendant Dr. Fletcher in [place]. - Advised to undergo further testing in [place] in 1-2 weeks. - Believes kidney function fluctuations may be related to heart medication. - last creatinine improved. Bilateral Lower Extremity Amputations: - Scheduled for plastic surgery to address nerve pain in the R stump. - Left stump experiences intermittent swelling and tightening. - Remains active, using a lightweight wheelchair for mobility. - Engages in activities like raking leaves; does not feel restricted by amputations. Hypertension: - Blood pressure readings have been elevated, with a recent reading of 200 mmHg. - Missed taking antihypertensive medication until 30 today. The patient denies current chest pain, shortness of breath, palpitations. Gastrointestinal: (-) constipation Musculoskeletal: (+) left stump pain, (+) left stump tightness Neurological: (+) stump nerve pain Objective Blood pressure 170/68, pulse 75. Last 1 Encounter BP Readings: Date: BP: 01/29/2025 158/60 General: No acute distress. CV: Heartbeat regular. Resp: Lungs clear. Skin: Skin intact on both stumps. Labs: (October) Blood work: Improved from previous values Tests: (11/23) ECG: Ischemic depression Imaging: Renal artery imaging: No significant abnormalities 1. Coronary arteriosclerosis (I25.10) - Recent visit with Dr. Moran on November 23 discussed significant coronary artery disease, including a maker lesion. - Patient informed that open heart surgery is not feasible due to lack of viable graft sites. - Follow-up appointment with ball truing machine operator Dr. Coleman scheduled in a couple of weeks. - Continue current management; monitor for any new symptoms or changes in condition. 2. Type 2 diabetes mellitus with diabetic peripheral angiopathy without gangrene, with long-term current use of insulin (HCC) (E11.51) - Continue current insulin regimen. - Monitor blood glucose levels regularly. - Maintain regular follow-ups with endocrinology. 3. Chronic anticoagulation (Z79.01) - Continue current anticoagulation therapy. - Monitor for any signs of bleeding or bruising. 4. S/P AKA (above knee amputation) bilateral (HCC) (Z89.611) - Right stump with constant nerve pain; scheduled for revision surgery to address neuroma. - Left stump with occasional swelling and tightening; no acute issues noted. - Skin on both stumps intact; no signs of infection. - Continue current pain management and follow-up with plastic surgery for nerve pain. 5. Mixed hyperlipidemia (E78.2) - Continue current lipid-lowering therapy. - Monitor lipid levels as per standard guidelines. Attestation Recording using [employer] software for draft documentation of the visit was discussed with the patient/authorized solar manufacturer's representative; all questions welcomed and answered. Patient/authorized solar manufacturer's representative agreed to proceed Paulina Severino MD documented in this encounter [facility] 01-26-2025 Telephone encounter Note OK 1 fill. Due for lab and visit by Debbie Refill on 01/25/25 LIPID PANEL, FASTING COMPREHENSIVE METABOLIC PANEL HEMOGLOBIN A1C COMPLETE BLOOD COUNT The following approved medication requests have been transmitted electronically. Requested Prescriptions Signed Prescriptions Disp Refills rosuvastatin (CRESTOR) 20 mg tablet 90 tablet 0 Sig: Take 1 tablet by mouth once daily Authorizing Provider: PAULINA SEVERINO MD [facility] 01-26-2025 Miscellaneous Notes OK 1 fill. Due for lab and visit by March Refill on 01/25/25 LIPID PANEL, FASTING COMPREHENSIVE METABOLIC PANEL HEMOGLOBIN A1C COMPLETE BLOOD COUNT The following approved medication requests have been transmitted electronically. Requested Prescriptions Signed Prescriptions Disp Refills rosuvastatin (CRESTOR) 20 mg tablet 90 tablet 0 Sig: Take 1 tablet by mouth once daily Authorizing Provider: PAULINA SEVERINO MD Pharmacy verified in [facility] Patient has been identified by name and date of : Yes Patient aware RX will be sent to pharmacy. No need to notify patient. Pharmacy phones for refill(s): Requested Prescriptions Pending Prescriptions Disp Refills rosuvastatin (CRESTOR) 20 mg tablet [Pharmacy Med Name: Rosuvastatin Calcium 20 MG Oral Tablet] 90 tablet 0 Sig: Take 1 tablet by mouth once daily Date of last office visit : 11/08/2024 Date of next office visit : 01/29/2025 Last 2 Encounter Wt Readings: Date: Wt: 11/23/2024 71.7 kg (158 lb) 10/18/2024 75.8 kg (167 lb 1.7 oz) Please advise. Gabrielle Miller MA documented in this encounter [facility] 01-26-2025 Telephone encounter Note Pharmacy verified in [facility] Patient has been identified by name and date of : Yes Patient aware RX will be sent to pharmacy. No need to notify patient. Pharmacy phones for refill(s): Requested Prescriptions Pending Prescriptions Disp Refills rosuvastatin (CRESTOR) 20 mg tablet [Pharmacy Med Name: Rosuvastatin Calcium 20 MG Oral Tablet] 90 tablet 0 Sig: Take 1 tablet by mouth once daily Date of last office visit : 11/08/2024 Date of next office visit : 01/29/2025 Last 2 Encounter Wt Readings: Date: Wt: 11/23/2024 71.7 kg (158 lb) 10/18/2024 75.8 kg (167 lb 1.7 oz) Please advise. Gabrielle Miller MA [facility] 01-08-2025 Telephone encounter Note The following approved medication requests have been transmitted electronically. Requested Prescriptions Signed Prescriptions Disp Refills insulin lispro (HUMALOG KWIKPEN) 100 unit/mL 15 mL 5 Sig: INJECT 12 UNITS SUBCUTANEOUSLY 3 TIMES DAILY BEFORE MEALS -ADD 2 UNITS IF GLUCOSE IS OVER 250 Authorizing Provider: PAULINA SEVERINO tamsulosin (FLOMAX) 0.4 mg 30 capsule 5 Sig: Take 1 capsule by mouth once daily Authorizing Provider: PAULINA SEVERINO MD [facility] 01-08-2025 Miscellaneous Notes The following approved medication requests have been transmitted electronically. Requested Prescriptions Signed Prescriptions Disp Refills insulin lispro (HUMALOG KWIKPEN) 100 unit/mL 15 mL 5 Sig: INJECT 12 UNITS SUBCUTANEOUSLY 3 TIMES DAILY BEFORE MEALS -ADD 2 UNITS IF GLUCOSE IS OVER 250 Authorizing Provider: PAULINA SEVERINO tamsulosin (FLOMAX) 0.4 mg 30 capsule 5 Sig: Take 1 capsule by mouth once daily Authorizing Provider: PAULINA SEVERINO MD Prescription Refill Information The patient has been identified by name and date of : Yes Caregiver verified no other encounters exist for this prescription request: Yes Caregiver confirmed with patient/requestor that no other refills are due, in the near future, with this provider at this time: Yes The last office visit in the department: 08/22/2024 Does the patient have a future office visit with this provider/department: Yes 01/29/2025 Requested Prescriptions Pending Prescriptions Disp Refills insulin lispro (HUMALOG KWIKPEN) 100 unit/mL [Pharmacy Med Name: Insulin Lispro (1 Unit Dial) 100 UNIT/ML Subcutaneous Solution Pen-injector] 15 mL 0 Sig: INJECT 12 UNITS SUBCUTANEOUSLY 3 TIMES DAILY BEFORE MEALS -ADD 2 UNITS IF GLUCOSE IS OVER 250 tamsulosin (FLOMAX) 0.4 mg [Pharmacy Med Name: Tamsulosin HCl 0.4 MG Oral Capsule] 30 capsule 0 Sig: Take 1 capsule by mouth once daily Minoo SILVERIO Boone January 08, 2025 11:20 AM documented in this encounter [facility] 01-08-2025 Telephone encounter Note Prescription Refill Information The patient has been identified by name and date of : Yes Caregiver verified no other encounters exist for this prescription request: Yes Caregiver confirmed with patient/requestor that no other refills are due, in the near future, with this provider at this time: Yes The last office visit in the department: 08/22/2024 Does the patient have a future office visit with this provider/department: Yes 01/29/2025 Requested Prescriptions Pending Prescriptions Disp Refills insulin lispro (HUMALOG KWIKPEN) 100 unit/mL [Pharmacy Med Name: Insulin Lispro (1 Unit Dial) 100 UNIT/ML Subcutaneous Solution Pen-injector] 15 mL 0 Sig: INJECT 12 UNITS SUBCUTANEOUSLY 3 TIMES DAILY BEFORE MEALS -ADD 2 UNITS IF GLUCOSE IS OVER 250 tamsulosin (FLOMAX) 0.4 mg [Pharmacy Med Name: Tamsulosin HCl 0.4 MG Oral Capsule] 30 capsule 0 Sig: Take 1 capsule by mouth once daily Minoo Boone LPN January 08, 2025 11:20 AM [facility] 01-03-2025 Telephone encounter Note Called and notified pt. [facility] 01-03-2025 Miscellaneous Notes Called and notified pt. Shilo, agree you should keep them on hand. These actually do lose their potency with age so pay attention to the expiration date. The following approved medication requests have been transmitted electronically. Requested Prescriptions Signed Prescriptions Disp Refills nitroglycerin sublingual (NITROQUICK) 0.4 mg SL tablet 25 tablet 1 Sig: Take 1 tablet by mouth as needed for chest pain. FOR CHEST PAIN. IF NO PAIN RELIEF, CALL 911 Paulina Severino MD documented in this encounter [facility] 01-01-2025 Telephone encounter Note Shilo, agree you should keep them on hand. These actually do lose their potency with age so pay attention to the expiration date. The following approved medication requests have been transmitted electronically. Requested Prescriptions Signed Prescriptions Disp Refills nitroglycerin sublingual (NITROQUICK) 0.4 mg SL tablet 25 tablet 1 Sig: Take 1 tablet by mouth as needed for chest pain. FOR CHEST PAIN. IF NO PAIN RELIEF, CALL 911 Paulina Severino MD [facility] 12-13-2024 Telephone encounter Note Faxed to [phone] [facility] 12-13-2024 Miscellaneous Notes Faxed to [phone] Encounter Diagnosis ICD-10-CM 1. Stage 3a chronic kidney disease (HCC) N18.31 CONSULT TO NEPHROLOGY Please fax referral to Dr Queen office. Paulina Severino MD documented in this encounter [facility] 12-13-2024 Telephone encounter Note Encounter Diagnosis ICD-10-CM 1. Stage 3a chronic kidney disease (HCC) N18.31 CONSULT TO NEPHROLOGY Please fax referral to Dr Queen office. Paulina Severino MD [facility] 12-13-2024 Evaluation note Diagnosis Stage 3a chronic kidney disease (HCC)- Primary documented in this encounter [facility]03-24-2025 Telephone encounter Note* Telephone Encounter - Paulina Severino MD - 12/11/2024 3:14 PM EDT The following approved medication requests have been transmitted electronically. Requested Prescriptions Signed Prescriptions Disp Refills tamsulosin (FLOMAX) 0.4 mg 30 capsule 0 Sig: Take 1 capsule by mouth once daily Authorizing Provider: PAULINA SEVERINO ascorbic acid, vitamin C, (VITAMIN C) 500 mg tablet 30 tablet 2 Sig: Take 1 tablet by mouth once daily. Authorizing Provider: PAULINA SEVERINO MD [facility]03-24-2025 Miscellaneous Notes* Telephone Encounter - Paulina Severino MD - 12/11/2024 3:14 PM EDT The following approved medication requests have been transmitted electronically. Requested Prescriptions Signed Prescriptions Disp Refills tamsulosin (FLOMAX) 0.4 mg 30 capsule 0 Sig: Take 1 capsule by mouth once daily Authorizing Provider: PAULINA SEVERINO ascorbic acid, vitamin C, (VITAMIN C) 500 mg tablet 30 tablet 2 Sig: Take 1 tablet by mouth once daily. Authorizing Provider: PAULINA SEVERINO MD * Telephone Encounter - Minoo Boone LPN - 12/11/2024 2:31 PM EDT Prescription Refill Information The patient has been identified by name and date of : Yes Caregiver verified no other encounters exist for this prescription request: Yes Caregiver confirmed with patient/requestor that no other refills are due, in the near future, with this provider at this time: Yes The last office visit in the department: 11/08/2024 Does the patient have a future office visit with this provider/department: No Requested Prescriptions Pending Prescriptions Disp Refills tamsulosin (FLOMAX) 0.4 mg [Pharmacy Med Name: Tamsulosin HCl 0.4 MG Oral Capsule] 30 capsule 0 Sig: Take 1 capsule by mouth once daily ascorbic acid, vitamin C, (VITAMIN C) 500 mg tablet 30 tablet 2 Sig: Take 1 tablet by mouth once daily. Minoo Boone LPN December 11, 2024 2:31 PM documented in [facility] encounter[facility] Telephone encounter Note * Telephone Encounter - Minoo Boone LPN - 12/11/2024 2:31 PM EDT Prescription Refill Information The patient has been identified by name and date of : Yes Caregiver verified no other encounters exist for this prescription request: Yes Caregiver confirmed with patient/requestor that no other refills are due, in the near future, with this provider at this time: Yes The last office visit in the department: 11/08/2024 Does the patient have a future office visit with this provider/department: No Requested Prescriptions Pending Prescriptions Disp Refills tamsulosin (FLOMAX) 0.4 mg [Pharmacy Med Name: Tamsulosin HCl 0.4 MG Oral Capsule] 30 capsule 0 Sig: Take 1 capsule by mouth once daily ascorbic acid, vitamin C, (VITAMIN C) 500 mg tablet 30 tablet 2 Sig: Take 1 tablet by mouth once daily. Minoo Boone LPN December 11, 2024 2:31 PM [facility]03-05-2025 Telephone encounter Note* Telephone Encounter - Davin Moran MD - 11/22/2024 1:08 PM EST Thierry thank so much for the prompt follow-up. Mr. Hathaway has pretty severe CAD as well as PAD and just had stenting done to the coronaries about a month ago. That would mean at minimum he needs 2 months more of dual antiplatelet therapy before one of the agents can be stopped for surgery by you. Ideally he would really need to remain on a baby aspirin a day even during her surgery because of the reasonably new stents. If your surgery cannot be done on any antiplatelet therapy, 1 could make the case not to do it or to wait another 11 months. His anticoagulant, Xarelto, would probably be held 4 days prior to surgery. I think at best you are looking at mid January. His risk will be on the high side because of his pretty severe vascular disease and coronary disease. I will send a follow-up separatenote tomorrow when I see him in the office Thanks Mark Anthony Barriga [facility] Work Phone: [phone]) 469-799203-05-2025 Miscellaneous Notes* Telephone Encounter - Davin Moran MD - 11/22/2024 1:08 PM EST Thierry thank so much for the prompt follow-up. Mr. Hathaway has pretty severe CAD as well as PAD and just had stenting done to the coronaries about a month ago. That would mean at minimum he needs 2 months more of dual antiplatelet therapy before one of the agents can be stopped for surgery by you. Ideally he would really need to remain on a baby aspirin a day even during her surgery because of the reasonably new stents. If your surgery cannot be done on any antiplatelet therapy, 1 could make the case not to do it or to wait another 11 months. His anticoagulant, Xarelto, would probably be held 4 days prior to surgery. I think at best you are looking at mid January. His risk will be on the high side because of his pretty severe vascular disease and coronary disease. I will send a follow-up separatenote tomorrow when I see him in the office Thanks Mark Anthony Barriga * Telephone Encounter - Davin Moran MD - 11/22/2024 9:04 AM EST I am going to be seeing Mr. Hathaway in the office after his recent stenting and myocardial infarction treated at [facility]. I received a note that Dr. Rush is planning surgery but I am not certain as to what type of surgery and when it is to be done. Please let me know this information Thanks Mark Anthony Moran MD [facility] Cardiology documented in this encounter[facility]25 Telephone encounter Note * Telephone Encounter - Davin Moran MD - 11/22/2024 9:04 AM EST I am going to be seeing Mr. Hathaway in the office after his recent stenting and myocardial infarction treated at [facility]. I received a note that Dr. Rush is planning surgery but I am not certain as to what type of surgery and when it is to be done. Please let me know this information Thanks Mark Anthony Moran MD [facility] Cardiology [facility]03-05-2025 [facility]03-05-2025 History of Present illness Narrative* Davin Moran MD - 11/22/2024 8:45 AM EST Chief Complaint No chief complaint on file. History of Present Illness: Shilo Hathaway is a 73 year old male here to follow-up CAD after recent ischemic event. He also needs clearance for vascular surgery. In September he presented to outside ER with chest pain. Diagnosed with STEMI. However when I review the EKGs he did have ischemic appearing ST depression in a diffuse manner echo prior to this about 2 months earlier showed EF around 65% he was very hypertensive in the ER as well he ended up going to [facility] and had stenting done to the RCA. He developed a left wrist hematoma a contrast with increasing creatinine up to 1.7 from baseline about 1.2 renal vascularsurgery did look at the wrist and did not think there is any indication for vascular surgical procedure they did wish to continue triple therapy with Xarelto aspirin and P2 Y12 inhibitor. Chest CT done on admission did not show any evidence of dissection. 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 LAD had multiple lesions. Circumflex hadsevere disease. RCA had severe calcified disease. And in- stent restenosis his preprocedural PET scan suggested RCA ischemia and scar. Shilo comes in today and generally doing fairly well and that he is not having chest pain or shortness of breath he is mostly wheelchair-bound because of bilateral AKA-the surgery that plastic surgeryis considering is really adjusting his right stump so it will fit better in a prosthesis so he can uses a prosthesis has had no syncope he has had no bleeding he has had no severe bruising no nausea or vomiting no stroke or TIA no palpitations or syncope PAST MEDICAL HISTORY Diagnosis Date Aortoiliac occlusive disease (HCC) Atherosclerotic heart disease of [place] coronary artery without angina pectoris Carotid artery occlusion Carotid artery stenosis Cerebrovascular accident (CVA) (HCC) Coronary arteriosclerosis [place] 1998 Depressive disorder Disc disorder of lumbar region Diverticulitis of colon Diverticulitis of colon Essential tremor Gastroesophageal reflux disease Generalized anxiety disorder Hiatal hernia History of myocardial infarction Hyperlipidemia Hypertension Intervertebral disc disorder of lumbar region with myelopathy Irritable bowel syndrome Myocardial infarction (HCC) Old myocardial infarction Peripheral vascular disease (HCC) PERS HX COLONIC POLYPS Preoperative testing 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 Sleep apnea SOB (shortness of breath) STEMI (ST elevation myocardial infarction) ([facility]) 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) Type 2 diabetes mellitus (HCC) PAST SURGICAL HISTORY Procedure Laterality Date AMPUTATION OF LOWER LEG Left 05/05/2022 Left above knee amputation AMPUTATION OF LOWER LEG Right 09/17/2023 Right above-knee amputation ANGIOPLASTY 1998, 2004, 2014 CAROTID ENDARTERECTOMY Bilateral right 02/2013, left 08/2001 COLONOSCOPY 05/26/2023 COLONOSCOPY FLX DX W/COLLJ SPEC WHEN PFRMD 2000 Colonoscopy with polypectomies COLONOSCOPY SCREENING 07/04/2021 tubular adenomas x5, severe diverticulosis ESOPHAGOGASTRODUODENOSCOPY TRANSORAL DIAGNOSTIC 2000 EGD reportedly normal EXPLORATION GROIN Left 04/29/2018 Left Groin Exploration, Thrombectomy of Left Limb of Axillo-Bifemoral Bypass, Revision of Left Femoral Anastomosis INSERT INTRACORONARY STENT 1998 RCA LAPAROSCOPY SURG CHOLECYSTECTOMY 1997 Cholecystectomy, lap LEFT HEART CATH,PERCUTANEOUS 1998 Cardiac cath, L heart PAST SURGICAL HISTORY OF Carotid stenosis PAST SURGICAL HISTORY OF Bilateral 12/25/2016 Axillo bifem bypass PAST SURGICAL HISTORY OF ureter removal STENT PLACEMENT 1998 BMS RCA STENT PLACEMENT 11/2013 MARVIN RCA FAMILY HISTORY Problem Relation Age of Onset Ischemic Heart Disease Father Cancer Father Coronary Artery Disease Father Breast Cancer Mother Social History Tobacco Use Smoking status: Former Current packs/day: 0.00 Types: Cigarettes Quit date: 03/06/1999 Years since quittin.7 Smokeless tobacco: Never Tobacco comments: Start date: 1969; Stop date: 1998 Vaping Use Vaping status: Never Used Substance Use Topics Alcohol use: No Comment: abstinent x 6 yrs Drug use: No ALLERGIES Allergen Reactions Atorvastatin Myalgia Levofloxacin Unknown Metformin Diarrhea Medications: Current Outpatient Medications Medication Sig Dispense Refill insulin lispro (HUMALOG KWIKPEN) 100 unit/mL INJECT 12 UNITS SUBCUTANEOUSLY THREE TIMES DAILY BEFORE MEALS -ADD 2 UNITS IF GLUCOSE IS OVER 250 15 mL 0 gabapentin (NEURONTIN) 600 mg tablet Take 600 mg by mouth four times daily. aspirin 81 mg chewable tablet Take 1 tablet by mouth once daily. [address] (PROTONIX) 40 mg tablet Take 1 tablet by mouth once daily. 30 tablet 2 rivaroxaban (XARELTO) 2.5 mg tablet Take 1 tablet by mouth two times a day. 60 tablet 2 TRESIBA FLEXTOUCH U-100 100 unit/mL (3 mL) injection pen Inject 20 Units subcutaneously daily at bedtime. 15 mL 3 carvedilol (COREG) 6.25 mg tablet Take 1 tablet by mouth two times a day with meals. 60 tablet 2 hydrALAZINE (APRESOLINE) 25 mg tablet Take 3 tablets by mouth every 8 hours. 270 tablet 2 NIFEdipine ER (PROCARDIA XL) 90 mg 24 hr tablet Take 1 tablet by mouth once daily. 30 tablet 2 tamsulosin (FLOMAX) 0.4 mg Take 0.4 mg by mouth once daily. ascorbic acid, vitamin C, (VITAMIN C) 500 mg tablet Take 1 tablet by mouth once daily. clopidogrel (PLAVIX) 75 mg tablet Take 1 tablet by mouth once daily 90 tablet 3 flash glucose sensor (FREESTYLE CL 2 SENSOR) kit Apply new sensor every fourteen (14) days to upper arm. 6 Each 4 gabapentin (NEURONTIN) 600 mg tablet Take 1 tablet by mouth four times daily for 90 days. 120 tablet 2 escitalopram oxalate (LEXAPRO) 10 mg tablet Take 1 tablet by mouth once daily. 90 tablet 3 rosuvastatin (CRESTOR) 20 mg tablet Take 1 tablet by mouth once daily. 90 tablet 3 UNIFINE PENTIPS PLUS 32 gauge x 5/32 Use for insulin pen injections 5 times daily, as directed. DX: E11.42, E11.65, Z79.4 500 Each 3 ACETAMINOPHEN (TYLENOL ORAL) Take 1-2 tablets by mouth every 6 hours as needed. MULTIVIT &MINERALS/FERROUS FUM (MULTI VITAMIN ORAL) Take by mouth once daily. No current facility-administered medications for this visit. Review of Systems Constitutional: Positive for malaise/fatigue. Negative for chills, fever and weight loss. Respiratory: Negative for shortness of breath and wheezing. Denies Chest Tightness Cardiovascular: Negative. Gastrointestinal: Negative for abdominal pain, blood in stool and nausea. Genitourinary: Negative for hematuria. Musculoskeletal: Negative for falls. Neurological: Negative for dizziness, speech change and loss of consciousness. Denies syncope Endo/Heme/Allergies: Does not bruise/bleed easily. Physical Examination: Vitals: BP 149/63 (BP Site: Right Arm, BP Position: Sitting, BP Cuff Size: Regular Adult) Pulse 71 Resp16 Wt 158 lb (71.7 kg) SpO2 94% BMI 54.86 kg/m I ordered an echocardiogram to be done in 11 months: You should eventually hear from scheduling Last 2 Encounter Wt Readings: Date: Wt: 10/18/2024 167 lb 1.7 oz (75.8 kg) 10/18/2024 168 lb 6.9 oz (76.4 kg) Physical Exam Constitutional: In wheelchair status post bilateral AKA Awake alert normal mentation normal speech normal affect very pleasant gentleman no resting cyanosis or pallor no severe bruising noted: Head: balding male hair pattern Neck: Status post bilateral carotid endarterectomy with normal carotid upstroke, no carotid bruit heard no JVD, no obvious thyromegaly Cardiovascular: Normal rate, regular rhythm, S1 normal and S2 normal. PMI is not palpable.Exam reveals no S3, no S4 and no friction rub. No RV lift No murmur heard. Heart sounds somewhat distant Pulses: Left radial pulse 2+ left upper extremity slightly larger than right right radial pulse 1+.Both wrists well-perfused Status post bilateral AKA. pulmonary/Chest: He has no wheezes. He has no rales. no accessory muscle use Abdominal: healed midline scar, no obvious hepatomegaly nontender Eyelids appear normal Pertinent Labs: CBC: Hemoglobin (g/dL) Date Value 11/04/2024 8.2 10/04/2014 15.0 HGB (g/dL) Date Value 02/21/2020 13.5 Hematocrit (%) Date Value 11/04/2024 25.0 02/21/2020 41.7 HCT (%) Date Value 10/07/2023 29.6 05/26/2022 32.1 WBC Date Value 11/04/2024 8.25 k/uL 05/26/2022 8.0 K/uL Platelet Count Date Value 11/04/2024 264 k/uL 02/21/2020 226 thou/cmm Platelet (k/uL) Date Value 10/07/2023 327 BMP: Glucose Date Value 11/14/2024 153 mg/dL 10/07/2023 158 MG/DL 03/12/2020 282 mg/dL Potassium Date Value 11/14/2024 4.2 mmol/L 05/26/2022 4.7 MEQ/L 03/12/2020 5.6 mmol/L K (mmol/L) Date Value 10/07/2023 4.4 Sodium Date Value 11/14/2024 140 mmol/L 05/26/2022 136 MEQ/L 03/12/2020 132 mmol/L NA (mmol/L) Date Value 10/07/2023 140 Chloride Date Value 11/14/2024 103 mmol/L 10/07/2023 110` ` 03/12/2020 96 mmol/L CO2 (mmol/L) Date Value 11/14/2024 25 03/12/2020 25 Creatinine Date Value 11/14/2024 1.07 mg/dL 10/07/2023 1.30 MG/DL 03/12/2020 0.87 mg/dL BUN Date Value 11/14/2024 20 mg/dL 10/07/2023 16.2 MG/DL 03/12/2020 20 mg/dL Anion Gap Date Value 11/14/2024 12 mmol/L 10/07/2023 4 Calcium Date Value 10/07/2023 9.2 mg/dL 05/26/2022 9.1 MG/DL 03/12/2020 10.5 mg/dL Calcium, Total (mg/dL) Date Value 11/14/2024 10.1 INR: TSH: TSH Date Value Ref Range Status 07/26/2017 1.750 0.358 - 3.740 uIU/mL Final Lipid Profile: Total Cholesterol, Nonfasting Date Value Ref Range Status 10/18/2024 92 <200 mg/dL Final Comment: <200 mg/dL, Desirable 200-239 mg/dL, Borderline high >239 mg/dL, High HDL Cholesterol, Nonfasting Date Value Ref Range Status 10/18/2024 41 >39 mg/dL Final Comment: 40-59 mg/dL, Acceptable >59 mg/dL, High: Negative risk factor for coronary heart disease <40 mg/dL, Low: Positive risk factor for coronary heart disease LDL Cholesterol, Nonfasting Date Value Ref Range Status 10/18/2024 19 <100 mg/dL Final Comment: <100 mg/dL, Optimal 100-129 mg/dL, Near optimal/above optimal 130-159 mg/dL, Borderline high 160-189 mg/dL, High >189 mg/dL, Very high Secondary prevention optimal LDL Cholesterol levels are recommended to be < 70 mg/dL Triglycerides, Nonfasting Date Value Ref Range Status 10/18/2024 162 (H) <150 mg/dL Final Comment: <150 mg/dL, Normal 150-199 mg/dL, Borderline high 200-499 mg/dL, High >499 mg/dL, Very high Hemoglobin A1C: No results found for: HGBA1C Most Recent Cardiac Testing Assessment and Plan: 1. Coronary artery disease: Recent non-STEMI showed severe multivessel disease on cath up at main campus: The left system had calcification and some diffuse disease including 50% left main but it wastreated medically -the right showed in-stent restenosis of a couple of stents and the PET scan doneprior to the future did show inferior ischemia and scar. He had to have a left radial approach for PCI of the right system because of difficult vascular assess due to his PAD. He had a left wrist hematoma but did not require a vascular surgery. He was treated with triple therapy due to his PAD and CAD with aspirin Plavix and Xarelto. EF in the hospital was stable at 65%. I think it was probably felt that he really was not a candidate for open heart surgery for his multivessel disease. I would definitely agree. He is actually doing pretty well without any angina or dyspnea although obviously have his activity level is diminished due to his bilateral AKA 2. Hypertension: Poorly controlled in the hospital: Currently just a little high and goal for him is probably 135/85 or lower given his overall picture. 3. Hyperlipidemia: LDL 22 last year he is now on high-dose statin therapy: - 4. Diabetes: Previously very poorly controlled: This is certainly the cause of much of his severe CAD and PAD. 5.PVD-now status post bilateral AKA. Most of his grafts and been seen to be occluded on recent imaging. His recent CT showed obstruction of much of his grafts and his vasculature really did not allowaccess to the coronaries from the femoral approach. As above he did develop a left wrist hematoma after But this did not require surgical repair. Left arm is slightly more swollen than the right but his left radial pulse is good and he definitely has good perfusion of the right wrist. I will continue to see Shilo on a yearly basis for his CAD and vascular disease. He will come up fora visit to our advanced practice nurse in about 3 months just to keep a close eye on him 6. Obesity: Hard to know current weight because he has bilateral AKA. 7. GA: Occurred after In fact more recent creatinine was down to 1.1 it did go up to about 1.7 likely contrast related 8. Anemia: Last hemoglobin 7.5 9. Plastic surgery:He does need plastic surgery clearance with . The surgery is because of the patient's right lower extremity stump and its inability to fit well into a prosthesis: This has prevented the Patient from using a prosthesis. Definitely a very important surgery but because he had stenting done just 4 weeks ago at the minimum he probably should wait 2 months and I would actually suggest overall 3 months before doing surgery. Most important is management of his antiplatelet and anticoagulant drugs: His Xarelto can be held 4 days prior. His Plavix can be held 5 days. However if at all possible the surgery should be done on the baby aspirin because he has stents. If it is felt by surgery that he has to be off aspirin because of high bleeding risk, then this can be stopped 5 to 10 days ahead, but there will be a risk of acute stent thrombosis that is unavoidable: It is not exceedingly high but probably less than 2% but if it occurs it can result in a severe or fatal stent thrombosis and infarct. I will defer the decision about aspirin to Dr. Rush. Patient's cardiovascular risk clearly will be high for any surgery but he is currently stable. Electronically signed by Davin Moran MD on November 22, 2024, 8:45 AM documented in this encounterUniversity [facility] Telephone encounter Note * Telephone Encounter - Paulina Severino MD - 11/20/2024 8:25 AM EST The following approved medication requests have been transmitted electronically. Requested Prescriptions Signed Prescriptions Disp Refills insulin lispro (HUMALOG KWIKPEN) 100 unit/mL 15 mL 0 Sig: INJECT 12 UNITS SUBCUTANEOUSLY THREE TIMES DAILY BEFORE MEALS -ADD 2 UNITS IF GLUCOSE IS OVER 250 Authorizing Provider: PAULINA SEVERINO MD [facility]03-03-2025 Miscellaneous Notes* Telephone Encounter - Paulina Severino MD - 11/20/2024 8:25 AM EST The following approved medication requests have been transmitted electronically. Requested Prescriptions Signed Prescriptions Disp Refills insulin lispro (HUMALOG KWIKPEN) 100 unit/mL 15 mL 0 Sig: INJECT 12 UNITS SUBCUTANEOUSLY THREE TIMES DAILY BEFORE MEALS -ADD 2 UNITS IF GLUCOSE IS OVER 250 Authorizing Provider: PAULINA SEVERINO MD * Telephone Encounter - Dixie Peace MA - 11/18/2024 9:32 AM EST Pharmacy verified in [employer]. Patient has been identified by name and date of : Yes Patient aware RX will be sent to pharmacy. No need to notify patient. Patient phones for refill(s): Requested Prescriptions Pending Prescriptions Disp Refills insulin lispro (HUMALOG KWIKPEN) 100 unit/mL [Pharmacy Med Name: Insulin Lispro (1 Unit Dial) 100 UNIT/ML Subcutaneous Solution Pen-injector] 15 mL 0 Sig: INJECT 12 UNITS SUBCUTANEOUSLY THREE TIMES DAILY BEFORE MEALS -ADD 2 UNITS IF GLUCOSE IS OVER 250 Date of last office visit : 11/08/2024 Date of next office visit : 01/29/2025 Last 2 Encounter Wt Readings: Date: Wt: 10/18/2024 75.8 kg (167 lb 1.7 oz) 10/18/2024 76.4 kg (168 lb 6.9 oz) Diabetes: Hemoglobin A1C (%) Date Value 10/02/2024 7.7 02/21/2020 11.6 Hemoglobin A1C (POCT) (%) Date Value 06/27/2024 10.2 Please advise. Dixie Peace MA documented in this encounterUniversity [facility]03-[facility] Telephone encounter Note * Telephone Encounter - Dixie Peace MA - 11/18/2024 9:32 AM EST Pharmacy verified in [employer]. Patient has been identified by name and date of : Yes Patient aware RX will be sent to pharmacy. No need to notify patient. Patient phones for refill(s): Requested Prescriptions Pending Prescriptions Disp Refills insulin lispro (HUMALOG KWIKPEN) 100 unit/mL [Pharmacy Med Name: Insulin Lispro (1 Unit Dial) 100 UNIT/ML Subcutaneous Solution Pen-injector] 15 mL 0 Sig: INJECT 12 UNITS SUBCUTANEOUSLY THREE TIMES DAILY BEFORE MEALS -ADD 2 UNITS IF GLUCOSE IS OVER 250 Date of last office visit : 11/08/2024 Date of next office visit : 01/29/2025 Last 2 Encounter Wt Readings: Date: Wt: 10/18/2024 75.8 kg (167 lb 1.7 oz) 10/18/2024 76.4 kg (168 lb 6.9 oz) Diabetes: Hemoglobin A1C (%) Date Value 10/02/2024 7.7 02/21/2020 11.6 Hemoglobin A1C (POCT) (%) Date Value 06/27/2024 10.2 Please advise. Dixie Peace MA [facility]02-27-2025 Telephone encounter Note* Telephone Encounter - Joan Rodriguez - 11/16/2024 8:29 AM EST Pt is already scheduled on November 23 at 2pm with you in [place]. Is that ok with you or do I need to move him to November 27 at 4pm to make it a 40 minute appointment for a hospital follow up? Please let me know. Thank you, Joan Rodriguez [facility]02-27-2025 Miscellaneous Notes* Telephone Encounter - Joan Rodriguez - 11/16/2024 8:29 AM EST Pt is already scheduled on November 23 at 2pm with you in [place]. Is that ok with you or do I need to move him to November 27 at 4pm to make it a 40 minute appointment for a hospital follow up? Please let me know. Thank you, Joan Rodriguez * Telephone Encounter - Davin Moran MD - 11/16/2024 7:32 AM EST Patient needs to see me in the office after recent hospitalization at [facility]. He needs vascular surgery at some point but I need to see him to assess timing. Please see if he can come to [place] office November 27 at 4 PM. Thanks I will send a copy of this note to Dr. Villalpando who is the vascular surgeon Davin Moran MD documented in this encounterUniversity [facility]als [facility] Telephone encounter Note * Telephone Encounter - Davin Moran MD - 11/16/2024 7:32 AM EST Patient needs to see me in the office after recent hospitalization at [facility]. He needs vascular surgery at some point but I need to see him to assess timing. Please see if he can come to [place] office November 27 at 4 PM. Thanks I will send a copy of this note to Dr. Villalpando who is the vascular surgeon Davin Moran MD [facility] Work Phone: 1(567) 865-515702-26-2025 [facility]Prom[facility] History of Present illness Narrative* Loren Wolfe RN - 11/15/2024 2:28 PM ESTSummary: TCM - F/U Outreach Tobacco Buyer Management TCM Outreach PCP Update / Actionable Items N/A N/A - No specialty updates needed Patient Source: In-Network Discharge Follow-up outreach: Non-Value Based Patient Summary/Findings: APPOINTMENTS: APPT DATE PROVIDER TCM: 11/08 PCP Medications: START: Carvedilol Hydralazine Nifedipine ER STOP: Amlopdipine Fenofibrate Lisinopril Metoprolol succinate CHANGE: Lispro insulin Rivaroaban Tresiba Insulin CONTINUE: Pre-hospital meds except above Respiratory: Respiratory - denies distress Nutrition/Elimination: Appetite and Fluids- Low Salt diet - eating well No Bowel or bladder concerns Activity: Discharge Activity Order - You may resume normal activity in two days, including driving, letting pain be your guide. No heavy lifting (nothing greater than 8lbs = gallon of milk) for one week or until the wound heals. Limit climbing steps and avoid excessive bending, squatting, and stooping. Do not sit in a bathtub or pool of water for five days or until the wound has healed. Pt verbalizes good understanding and adherence with instructions Left arm healing per pt., but remains somewhat weakened. Procedure/Surgery: Wound sites clean, dry, healing Questions answered (pt had questions about cardiac rehab). Patient discharged from [facility] Discharge date: 11/04/2024 Home w self care Admitted for: NSTEMI, GA, Lradial artery dissection, Acut LUE thrombophlebitis Readmission Risk: Not specified Value-Based Contract: Non-Value Based Contact: Contact made with patient: Yes Hi, my name is Loren Wolfe RN, I am calling from the [facility] on behalf of your Primary Care Provider, Paulina Severino MD, to follow up on your most recent hospital stay. I am calling to get an update on how you are feeling. Do you have time to discuss updates or changes related to your hospital stay and to ensure you havecompleted or scheduled a hospital follow up appointment with your provider? Yes Spoke to: Patient Validation: Validated the person spoken to is actively involved in the patient's care. The patient was identified by Name and Date of . Symptoms: Are you feeling about the same, better or worse since leaving the hospital? Better Medications: Do you have any questions about taking your medications, including which medications you should be on, or do you need refills on your medications? No Discharge Instructions: Do you have any questions related to your most recent discharge from the hospital? No Social: We would like to make sure you have what you need so your basics needs are met - including your personal safety, food, housing and medications. Would you like to speak with a social work count team clerk to help give you support for any of these needs? No It can be normal to feel anxious or down during a time like this. Would you like to talk to a mental health professional about how you have been feeling? No Action Taken: No action taken Follow-Up Appointment: [Appointment / TCM Follow-up within 14 days] I would like to help you schedule a hospital follow-up virtual or telephone visit with your PCP. This is a great way for you to connect with your provider to ensure you have safely transitioned home.If you are agreeable, I will send your request to a impregnating machine operator who will contact and assist you with that appointment. This will give you an opportunity to ask any questions or address any concerns youmay have with your PCP. Inform the patient that if they have any questions or concerns prior to that appointment, to call their PCP's office right away. Appointment Action: No action required; patient completed follow-up appointment. Loren Wolfe RN November 15, 2024 2:51 PM documented in this encounterUniversity Hospitals [facility]02-19-2025 NotePromedica [facility]02-19-2025 History of Present illness Narrative* Lyubov Hernandez APRN.PARK ACTIVITIES COORDINATOR - 11/08/2024 2:55 PM EST Images from the original note were not included. Transitional Care Management TCM Eligibility Documentation The following information was gathered during patient outreach 11/06/2024 Date of Outreach: Outreach Attempt 1: Contact Made Date of Discharge 11/04/2024 Provider Documentation Shilo Hathaway is a 73 year old male here today for a follow up from recent hospitalization. I have reviewed the patient's hospital course including discharge summary, discharge medications , and followup needs with the patient and any family members present at today's visit. [facility] Hospital discharge summary as follows: Mr. Hathaway is a 73-year-old with a profound history of vascular disease including CAD (s/p VA, MARVIN x2 to RCA 1998, type II NSTEMI 08/2023), extensive vasculopathy (C/B B/L AKA, on chronic rivaroxaban+ clopidogrel) who presented with atypical chest pain and GI symptoms, found to have ST changes on EKG (<1 mm elevation in AVR, diffuse ST depression/T wave inversion) in the setting of hypertension and transferred from [place] to [facility] Main [place] [facility]. While in the unit, it was determined that patient had an NSTEMI in the context of marked hypertension. While awaiting stress test, patient beganhaving issues with uncontrolled hypertension and was placed on a nitro gtt while oral agents titrated. Patient underwent PET stress which showed ischemia and scar in the territiory of the RCA. Nephrology consulted regarding GA as primay team would like to pursue cardiac catheterization who recommends holding off on cardiac catheterization until creatinine improves. PET viability showed predominately viable myocardium. Had successful PCI of RCA. Post procedure had hematoma, US showed radial artery dissection. Vascular surgery consulted with no plans for surgical intervention. Swelling increased in LUE and repeat US performed showing known dissection and cephalic vein antecubital fossa to proximal forearm: acute superficial thrombophlebitis. Thrombus noted in a branch vein off the cephalic. Vascular Surgery reconsulted for evaluation. Due to US results, will also consult Vascular Medicine regarding triple therapy in light of new thrombus on imaging. Vascular Medicine recommended tripletherapy with PAD dosing of Xarelto at 2.5mg. Curbside ID regarding L FA blister with recommendations for topical abx and monitor for any development of erythema, worsening pain, fever or leukocytosison labs. Additionally elevate and apply light compression to LUE. On the day of discharge, LUE withimproved swelling, no signs infection. Area surrounding old PIV site on L FA showing resolving blister with trace clear fluid and only local mild erythema. Will continue topical abx at discharge. Medically stable for home. Patient reports feeling well since discharge from hospital. Upper left arm is still sore and bruised, superficial clot is resolving, just a little redness/swelling, no drainage. 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 Reviewed medication changes as follows, tolerating well: Stop : amlodipine, fenofibrate, lisinopril, metoprolol Start: carvedilol Hydralazine, nifedipine Change: xarelto 2.5 BID, lispro 8 units TID before meals, tresiba 20 units at bedtime Review of Systems Constitutional: Negative for fever and unexpected weight change. Respiratory: Negative for shortness of breath. Cardiovascular: Negative for chest pain. Allergic/Immunologic: Positive for immunocompromised state. PAST MEDICAL HISTORY Diagnosis Date Aortoiliac occlusive disease (HCC) Atherosclerotic heart disease of mentasta coronary artery without angina pectoris Carotid artery occlusion Carotid artery stenosis Cerebrovascular accident (CVA) (HCC) Coronary arteriosclerosis [place] 1998 Depressive disorder Disc disorder of lumbar region Diverticulitis of colon Diverticulitis of colon Essential tremor Gastroesophageal reflux disease Generalized anxiety disorder Hiatal hernia History of myocardial infarction Hyperlipidemia Hypertension Intervertebral disc disorder of lumbar region with myelopathy Irritable bowel syndrome Myocardial infarction (HCC) Old myocardial infarction Peripheral vascular disease (HCC) PERS HX COLONIC POLYPS Preoperative testing 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 Sleep apnea SOB (shortness of breath) 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) Type 2 diabetes mellitus (HCC) PAST SURGICAL HISTORY Procedure Laterality Date AMPUTATION OF LOWER LEG Left 05/05/2022 Left above knee amputation AMPUTATION OF LOWER LEG Right 09/17/2023 Right above-knee amputation ANGIOPLASTY 1998, 2004, 2013 CAROTID ENDARTERECTOMY Bilateral right 02/2013, left 08/2001 COLONOSCOPY 05/26/2023 COLONOSCOPY FLX DX W/COLLJ SPEC WHEN PFRMD 2000 Colonoscopy with polypectomies COLONOSCOPY SCREENING 07/04/2021 tubular adenomas x5, severe diverticulosis ESOPHAGOGASTRODUODENOSCOPY TRANSORAL DIAGNOSTIC 2000 EGD reportedly normal EXPLORATION GROIN Left 04/29/2018 Left Groin Exploration, Thrombectomy of Left Limb of Axillo-Bifemoral Bypass, Revision of Left Femoral Anastomosis INSERT INTRACORONARY STENT 1998 RCA LAPAROSCOPY SURG CHOLECYSTECTOMY 1997 Cholecystectomy, lap LEFT HEART CATH,PERCUTANEOUS 1998 Cardiac cath, L heart PAST SURGICAL HISTORY OF Carotid stenosis PAST SURGICAL HISTORY OF Bilateral 12/25/2016 Axillo bifem bypass PAST SURGICAL HISTORY OF ureter removal STENT PLACEMENT 1998 BMS RCA STENT PLACEMENT 11/2013 MARVIN RCA ALLERGIES Atorvastatin, Levofloxacin, and Metformin MEDICATIONS gabapentin (NEURONTIN) 600 mg tablet Take 600 mg by mouth four times daily. aspirin 81 mg chewable tablet Take 1 tablet by mouth once daily. insulin lispro (HUMALOG KWIKPEN) 100 unit/mL INJECT 8 UNITS SUBCUTANEOUSLY THREE TIMES DAILY BEFOREMEALS pantoprazole DR (PROTONIX) 40 mg tablet Take 1 tablet by mouth once daily. rivaroxaban (XARELTO) 2.5 mg tablet Take 1 tablet by mouth two times a day. TRESIBA FLEXTOUCH U-100 100 unit/mL (3 mL) injection pen Inject 20 Units subcutaneously daily at bedtime. bacitracin zinc-polymyxin B (POLYSPORIN) 500-10,000 unit/gram ointment Apply 1 Packet to affected area three times a day for 7 days. carvedilol (COREG) 6.25 mg tablet Take 1 tablet by mouth two times a day with meals. hydrALAZINE (APRESOLINE) 25 mg tablet Take 3 tablets by mouth every 8 hours. NIFEdipine ER (PROCARDIA XL) 90 mg 24 hr tablet Take 1 tablet by mouth once daily. tamsulosin (FLOMAX) 0.4 mg Take 0.4 mg by mouth once daily. ascorbic acid, vitamin C, (VITAMIN C) 500 mg tablet Take 1 tablet by mouth once daily. clopidogrel (PLAVIX) 75 mg tablet Take 1 tablet by mouth once daily flash glucose sensor (FREESTYLE CL 2 SENSOR) kit Apply new sensor every fourteen (14) days to upper arm. escitalopram oxalate (LEXAPRO) 10 mg tablet Take 1 tablet by mouth once daily. rosuvastatin (CRESTOR) 20 mg tablet Take 1 tablet by mouth once daily. UNIFINE PENTIPS PLUS 32 gauge x /32 Use for insulin pen injections 5 times daily, as directed. DX: E11.42, E11.65, Z79.4 MULTIVIT &MINERALS/FERROUS FUM (MULTI VITAMIN ORAL) Take by mouth once daily. gabapentin (NEURONTIN) 600 mg tablet Take 1 tablet by mouth four times daily for 90 days. Blood-Glucose Sensor (DEXCOM G7 SENSOR) katlyn 1 Each every 2 weeks. Patient is on insulin Blood-Glucose Meter,Continuous (DEXCOM G7 SERVICE BAR CASHIER) misc Check glucose throughout the day. Patient is on insulin ACETAMINOPHEN (TYLENOL ORAL) Take 1-2 tablets by mouth every 6 hours as needed. FAMILY HISTORY Problem Relation Age of Onset Ischemic Heart Disease Father Cancer Father Coronary Artery Disease Father Breast Cancer Mother Social History Tobacco Use Smoking status: Former Current packs/day: 0.00 Types: Cigarettes Quit date: 03/06/1999 Years since quittin.6 Smokeless tobacco: Never Tobacco comments: Start date: 1969; Stop date: 1998 Vaping Use Vaping status: Never Used Substance Use Topics Alcohol use: No Comment: abstinent x 6 yrs Drug use: No BP 147/62 Pulse 110 SpO2 95% BP 144/54 (BP Site: Right Arm, BP Position: Sitting, BP Cuff Size: Large Adult) Pulse 110 SpO2 95% Physical Exam Vitals and nursing note reviewed. Constitutional: Appearance: He is well-developed. Pulmonary: Effort: Pulmonary effort is normal. Musculoskeletal: Right Lower Extremity: Right leg is amputated above knee. Left Lower Extremity: Left leg is amputated above knee. Skin: General: Skin is warm and dry. Comments: Mild erythema and subcutaneous edema, non-fluctuant, no drainage, purple and yellow echymosis distal Neurological: Mental Status: He is alert and oriented to person, place, and time. ASSESSMENT/PLAN: 1. Hospital discharge follow-up - ICD9: V67.59, ICD10: Z09 (primary diagnosis) 2. History of non-ST elevation myocardial infarction (NSTEMI) - ICD9: 412, ICD10: I25.2 Stable, following with cardiology. 3. Superficial thrombophlebitis of left upper extremity - ICD9: 451.82, ICD10: I80.8 Improving, continue supportive care 4. Hypertension - ICD9: 401.9, ICD10: I10 - Controlled - Continue current medications and follow-up with nephrology. 5. Type 2 diabetes mellitus with diabetic neuropathy, with long-term current use of insulin (HCC) -ICD9: 250.60, 357.2, V58.67, ICD10: E11.40, Z79.4 Stable, continue current medications 6. PVD (peripheral vascular disease) (HCC) - ICD9: 443.9, ICD10: I73.9 Stable, follows with vascular. 7. Stage 3a chronic kidney disease (HCC) Stable, follow-up with nephrology as scheduled Lyubov Hernandez APRN.PARK ACTIVITIES COORDINATOR documented in this encounterUniversity Hospitals Geaug[facility] Center02-17-2025 NotePromedica [facility]iance [facility]02-17-2025 History of Present illness Narrative* Jodi Francis RN - 11/06/2024 2:08 PM EST Tobacco Buyer Management TCM Outreach PCP Update / Actionable Items N/A - No specialty updates needed Patient Source: In-Network Discharge Initial outreach: Non-Value Based Patient Outreach Summary: Doing a lot better since returning home Denies CP or sob Left arm with decreased bruising and swelling and pain Applies neosporin to site BP today 110/60 All meds reviewed Has questions about insulin dose changes and will discuss with pcp on 11/08 @ follow up vs Aware needs to call and secure f/u vs with vascular and cards Pt is bilat AKA but is able to transfer indep to w/c.Does have prosthesis A;ll questions/concerns addressed Patient discharged from [facility] Discharge date: 11/04/24 Admitted for: CP transferred [facility] [place] [facility] for NSTEMI S/p [facility] PCI of RCA Post procedure hematoma with Left Radial Disection Readmission Risk: 25 Value-Based Contract: Non-Value Based Contact: Contact made with patient: Yes TCM Eligibility Documentation Program: Transitional Care Management Status: Readmitted TCM Readmitted - Internal Effective Dates: 10/09/2024 - 10/19/2024 Responsible Staff: Lizzie Ramirez RNhospice office coordinator Management Status: Cancelled TCM Cancelled - No longer eligible Effective Dates: unknown - 11/06/2024 Responsible Staff: No information to display Discharge date: 11/05/2024 (Program start) Date of initial contact: 11/06/2024 Initial contact Target status: Not completed Hi, my name is Jodi Francis RN and I am calling from the [facility] on behalf of your Primary Care Provider, Paulina Severino MD. I understand you were recently in the hospital, so I am calling to check in with you to ensure you are feeling well now that you are home. May I ask you a few questions related to your hospital stay and well-being? Yes Spoke to: Patient Validation: Validated the person spoken to is actively involved in the patient's care. The patient was identified by Name and Date of . Symptoms: Are you feeling about the same, better or worse since leaving the hospital? Better Medications: Do you have any questions about taking your medications, including which medications you should be on, or do you need refills on your medications? No Meds reviewed Discharge Instructions: Do you have any questions related to your most recent discharge from the hospital? No Social: We would like to make sure you have what you need so your basics needs are met - including your personal safety, food, housing and medications. Would you like to speak with a social work count team clerk to help give you support for any of these needs? No It can be normal to feel anxious or down during a time like this. Would you like to talk to a mental health professional about how you have been feeling? No Action Taken: No action taken Follow-Up Appointment: [Appointment / TCM Follow-up within 14 days] I would like to help you schedule a hospital follow-up virtual or telephone visit with your PCP. This is a great way for you to connect with your provider to ensure you have safely transitioned home.If you are agreeable, I will send your request to a impregnating machine operator who will contact and assist you with that appointment. This will give you an opportunity to ask any questions or address any concerns youmay have with your PCP. Inform the patient that if they have any questions or concerns prior to that appointment, to call their PCP's office right away. Appointment Action: No action required; patient already has appointment scheduled. Jodi Francis RN November 06, 2024 2:32 PM documented in this encounterUniversity Hospitals Geauga [facility] Center02-15-2025 NotePromedica Defiance [facility]02-15-2025 NotePromedica [facility]02-14-2025 NotePromedica [facility]02-14-2025 NotePromedica [facility]02-13-2025 Note [facility]02-12-2025 NotePromed[facility]02-11-2025 NotePromedica [facility]02-10-2025 NotePromed[facility] 10-30-2024 NotePromedica [facility]02-09-2025 NotePromedica [facility]02-08-2025 NotePromedica [facility]02-08-2025 NoteHNO ID: [id number] Author: NOTE, INTERFACE, ? Service: ? Author Type: ? Type: Progress Notes Filed: 10/28/2024 02:45 Note Text: Epic Scheduled Downtime: 10/28/2024 1:00:00 AM to 10/28/2024 2:36:00 [facility]02-07-2025 NotePromedica [facility]iance [facility]02-07-2025 Note [facility]02-07-2025 NotePromedica [facility]02-06-2025 NotePromedica [facility]02-05-2025 NoteProm[facility] 10-25-2024 NotePromedica [facility]02-04-2025 NoteProm[facility]02-04-2025 NoteProm[facility]02-04-2025 NoteProm[facility]02-03-2025 NoteProm[facility]02-03-2025 Note [facility]02-02-2025 NotePromedica [facility]02-01-2025 NotePromedica [facility]01-31-2025 NotePromed[facility] 10-20-2024 NotePromedica [facility]01-30-2025 NotePromed[facility]01-20-2025 NotePromed[facility]01-20-2025 History of Present illness Narrative* Lyubov Hernandez APRN.PARK ACTIVITIES COORDINATOR - 10/09/2024 1:19 PM EST Transitional Care Management TCM Eligibility Documentation Program: Transitional Care Management Status: Enrolled Effective Dates: 10/09/2024 - present Responsible Staff: Lizzei Ramirez RN Discharge date: 10/06/2024 (Program start) Date of initial contact: 10/09/2024 Initial contact Target status: Successful; Contact made within 2 business days post-discharge Provider Documentation Shilo Hathaway is a 73 year old male here today for a follow up from recent hospitalization. I have reviewed the patient's hospital course including discharge summary, discharge medications , and followup needs with the patient and any family members present at today's visit. HPI Per hospital discharge summary, Shilo Hathaway is a 73 year old male presented with past medical history of type 2 DM, CAD, HLD, PAD s/p b/l AKA was sent in to the ER when he was found to have potassium>7 on outpatient routine blood work. He was admitted to the ICU, nephrology was consulted, his home lisinopril and aldactone were held. He was treated with lokelma, sodium bicarb. His potassium decreased to 4.8 and he was monitored on the regular nursing floor for another night. Potassium continued to remain within normal limits. His home aldactone is being stopped at the time of discharge per nephrology recommendations. He should follow up with pcp as outpatient in 3-4 days. Since discharge, patient feels well, at baseline. Blood pressure at home in the low 140's. Has re-started the lisinopril as advised, discontinued spironolactone. DMII: most recent A1C 7.7%, improving. Review of Systems Respiratory: Negative for shortness of breath. Cardiovascular: Negative for chest pain. Allergic/Immunologic: Positive for immunocompromised state. PAST MEDICAL HISTORY Diagnosis Date Aortoiliac occlusive disease (HCC) Atherosclerotic heart disease of mentasta coronary artery without angina pectoris Carotid artery occlusion Carotid artery stenosis Cerebrovascular accident (CVA) (HCC) Coronary arteriosclerosis [place] 1998 Depressive disorder Disc disorder of lumbar region Diverticulitis of colon Diverticulitis of colon Essential tremor Gastroesophageal reflux disease Generalized anxiety disorder Hiatal hernia History of myocardial infarction Hyperlipidemia Hypertension Intervertebral disc disorder of lumbar region with myelopathy Irritable bowel syndrome Myocardial infarction (HCC) Old myocardial infarction Peripheral vascular disease (HCC) PERS HX COLONIC POLYPS Preoperative testing 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 Sleep apnea SOB (shortness of breath) 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) Type 2 diabetes mellitus (HCC) PAST SURGICAL HISTORY Procedure Laterality Date AMPUTATION OF LOWER LEG Left 05/05/2022 Left above knee amputation AMPUTATION OF LOWER LEG Right 09/17/2023 Right above-knee amputation ANGIOPLASTY 1998, 2004, 2014 CAROTID ENDARTERECTOMY Bilateral right 02/2013, left 08/2001 COLONOSCOPY 05/26/2023 COLONOSCOPY FLX DX W/COLLJ SPEC WHEN PFRMD 2000 Colonoscopy with polypectomies COLONOSCOPY SCREENING 07/04/2021 tubular adenomas x5, severe diverticulosis ESOPHAGOGASTRODUODENOSCOPY TRANSORAL DIAGNOSTIC 2000 EGD reportedly normal EXPLORATION GROIN Left 04/29/2018 Left Groin Exploration, Thrombectomy of Left Limb of Axillo-Bifemoral Bypass, Revision of Left Femoral Anastomosis INSERT INTRACORONARY STENT 1998 RCA LAPAROSCOPY SURG CHOLECYSTECTOMY 1997 Cholecystectomy, lap LEFT HEART CATH,PERCUTANEOUS 1998 Cardiac cath, L heart PAST SURGICAL HISTORY OF Carotid stenosis PAST SURGICAL HISTORY OF Bilateral 12/25/2016 Axillo bifem bypass PAST SURGICAL HISTORY OF ureter removal STENT PLACEMENT 1998 BMS RCA STENT PLACEMENT 11/2013 MARVIN RCA ALLERGIES Atorvastatin, Levofloxacin, and Metformin MEDICATIONS tamsulosin (FLOMAX) 0.4 mg Take 0.4 mg by mouth once daily. ascorbic acid, vitamin C, (VITAMIN C) 500 mg tablet Take 1 tablet by mouth once daily. clopidogrel (PLAVIX) 75 mg tablet Take 1 tablet by mouth once daily flash glucose sensor (OCP CollectiveSTYLE CL 2 SENSOR) kit Apply new sensor every fourteen (14) days to upper arm. TRESIBA FLEXTOUCH U-100 100 unit/mL (3 mL) injection pen Inject 28 Units subcutaneously daily at bedtime. lisinopril (ZESTRIL) 5 mg tablet Take 1 tablet by mouth once daily. gabapentin (NEURONTIN) 600 mg tablet Take 1 tablet by mouth four times daily for 90 days. metoprolol succinate ER (TOPROL XL) 25 mg 24 hr tablet Take 1 tablet by mouth once daily. amLODIPine (NORVASC) 5 mg tablet Take 1 tablet by mouth once daily. fenofibrate nanocrystallized (TRICOR) 145 mg tablet Take 1 tablet by mouth once daily. insulin lispro (HUMALOG KWIKPEN) 100 unit/mL INJECT 12 UNITS SUBCUTANEOUSLY THREE TIMES DAILY BEFORE MEALS - ADD 2 UNITS IF GLUCOSE IS OVER 250 escitalopram oxalate (LEXAPRO) 10 mg tablet Take 1 tablet by mouth once daily. rivaroxaban (XARELTO) 10 mg tablet Take 1 tablet by mouth once daily. Blood-Glucose Sensor ([employer] G7 SENSOR) katlyn 1 Each every 2 weeks. Patient is on insulin Blood-Glucose Meter,Continuous (DEXCOM G7 SERVICE BAR CASHIER) [facility] [place] Check glucose throughout the day. Patient is on insulin rosuvastatin (CRESTOR) 20 mg tablet Take 1 tablet by mouth once daily. pantoprazole DR (PROTONIX) 40 mg tablet Take 1 tablet by mouth once daily. aspirin 81 mg chewable tablet Take 1 tablet by mouth once daily. UNIFINE PENTIPS PLUS 32 gauge x 5/32 Use for insulin pen injections 5 times daily, as directed. DX: E11.42, E11.65, Z79.4 ACETAMINOPHEN (TYLENOL ORAL) Take 1-2 tablets by mouth every 6 hours as needed. MULTIVIT &MINERALS/FERROUS FUM (MULTI VITAMIN ORAL) Take by mouth once daily. FAMILY HISTORY Problem Relation Age of Onset Ischemic Heart Disease Father Cancer Father Coronary Artery Disease Father Breast Cancer Mother Social History Tobacco Use Smoking status: Former Current packs/day: 0.00 Types: Cigarettes Quit date: 03/06/1999 Years since quittin.6 Smokeless tobacco: Never Tobacco comments: Start date: 1969; Stop date: 1998 Vaping Use Vaping status: Never Used Substance Use Topics Alcohol use: No Comment: abstinent x 6 yrs Drug use: No BP (!) 151/49 Pulse (!) 59 Temp 36 C (96.8 F) Resp 16 Ht 114.3 cm (3' 9) Wt 72.6 kg (160lb) SpO2 95% BMI 55.55 kg/m BP 148/58 (BP Site: Right Arm, BP Position: Sitting, BP Cuff Size: Large Adult) Pulse (!) 59 Temp 36 C (96.8 F) Resp 16 Ht 114.3 cm (3' 9) Wt 72.6 kg (160 lb) SpO2 95% BMI 55.55 kg/m Physical Exam Constitutional: Appearance: He is not ill-appearing. Cardiovascular: Rate and Rhythm: Normal rate and regular rhythm. Heart sounds: Normal heart sounds. Pulmonary: Effort: Pulmonary effort is normal. Breath sounds: Normal breath sounds. Musculoskeletal: Right Lower Extremity: Right leg is amputated above knee. Left Lower Extremity: Left leg is amputated above knee. Psychiatric: Mood and Affect: Mood normal. ASSESSMENT/PLAN: 1. Hyperkalemia 2. Hospital discharge follow-up Recheck labs in 1 week. - BASIC METABOLIC PANEL; Future 3. Type 2 diabetes mellitus with diabetic peripheral angiopathy without gangrene, with long-term current use of insulin (HCC) A1C improved at 7.7%, continue current medication regimen. 4. HFrEF (heart failure with reduced ejection fraction) (HCC) Spironolactone discontinued due to hyperkalemia. 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 Lyubov Hernandez APRN.PARK ACTIVITIES COORDINATOR * Sandy Vega MA - 10/09/2024 1:14 PM EST Depression Screening Never done Anxiety Screening Never done Hepatitis C Screening Never done Dilated Retinal Exam due on 11/26/2023 Advance Directive Discussion Never done documented in this encounterUniversity Hospitals [facility]01-20-2025 NotePromedica Def[facility]01-20-2025 Instructions* Patient Instructions* Sandy Vega MA - 10/09/2024 1:[address] [facility] TEST INFORMATION [facility] LAB HOURS: Lab is open: 7:30am to 5:00pm M - Th, 7:30am to 4:00pm onFri and 8am -12pm on Sat. The lab is located in [facility] on the first floor. There is a registration window at the lab, available 7 am to 3 pm Wednesday - Wednesday. If registration is unavailable at the lab, you may register at the patient registration office near the front [facility] of the hospital. SCHEDULING A LAB APPOINTMENT: Laboratory appointments are recommended.Walk ins are still accepted. Call [phone] or schedule via [employer] scheduling ticket. ROUTINE LAB ORDERS 60 days after they are entered. If your lab orders , you may be required to wait in the lab while they are reinstated FUTURE ORDERS are lab tests to be completed on the EXPECTED date. These orders 60 days afterthe expected date. STANDING ORDERS are recurring orders with an expiration date. The interval will indicate how often the test should be completed. CT / MRI / IVP If you have lab tests ordered for one of these radiology exams, please complete the blood work at least one day prior to the scheduled exam. PRESCRIPTION REFILL REQUESTS Request prescription refills through your [employer] account or contact your Pharmacy. My Chart Schedule My Appointment enables you to view your established primary care provider's open schedule and book an appointment online in real-time. This feature is available in internal medicine, family medicine, or pediatrics at any of our [facility] locations and main campus. documented in this encounterUniversity Hospitals Geauga [facility] Center01-20-2025 NotePromedica Defiance [facility]01-17-2025 NoteHNO ID: [id number] Author: HODAN GALLARDO RN Service: Care Management Author Type: Registered Nurse Type: Care Mgt Progress Note Filed: 10/06/2024 12:37 Note Text: CARE MANAGEMENT DISCHARGE NOTE SERVICE DATE: October 06, 2024 SERVICE TIME: 12:29 PM Admission Date: 10/03/2024 LOS: 3 days Discharge Arrangement Discharge Arrangement: Home with Self Care, Home with Relative Caregiver Assessment Caregiver is ready, willing and able to meet the patient's needs as recommended by the inter-professional team: No Caregiver needed Transportation Arrangements Transportation Arrangements: Car Date of Trip: 10/06/24 Destination: Home Handoff Communication: Handoff to: Primary Care Physician Primary Care Physician Name/Phone: Paulina Severino MD/[phone] Discharge order is written. RN CM met with the patient at bedside to discuss discharge plans. No skilled needs were identified. Patient states he feels he is at his baseline for mobility and does not feel he needs Home Health Care. He also confirmed he will have transportation home today. SIGNATURE: Hodan Gallardo RN PATIENT NAME: Shilo Hathaway DATE: October 06, 2024 TIME: 12:29 PMSouthwest [facility] Health [id number] NoteHNO ID: [id number] Author: KENNETH ANTUNEZ MD Service: Hospital Medicine Author Type: Physician Type: Progress Notes Filed: 10/05/2024 15:39 Note Text: DEPARTMENT OF HOSPITAL MEDICINE PROGRESS NOTE SERVICE DATE: 10/05/2024 SERVICE TIME: 3:28 PM Hospital Medicine/Primary Attending: Darron Valentino MD NIGHT AND WEEKEND COVERAGE: [place] COVERAGE: Days: [phone], please page attending physician. Nights: [phone], please page [facility] Hospitalist Night coverage pager [phone]. Subjective INTERVAL HPI: - seen in the ICU - says he was completely asymptomatic - no new medication changes, was taking medications as prescribed. Current Facility-Administered Medications Medication Dose Route Frequency dextrose 40 % 15 g 15 g ORAL PRN Or glucagon 1 mg injection 1 mg INTRAMUSCULAR PRN Or dextrose 10% iv bolus 12.5 g INTRAVENOUS PRN gabapentin 600 mg tab(s) (NEURONTIN) 600 mg ORAL QID rosuvastatin 20 mg tab(s) (CRESTOR) 20 mg ORAL DAILY tamsulosin 0.4 mg cap(s) (FLOMAX) 0.4 mg ORAL DAILY metoprolol tartrate (short acting) 12.5 mg tab(s) (LOPRESSOR) 12.5 mg ORAL q 12 H clopidogrel 75 mg tab(s) (PLAVIX) 75 mg ORAL DAILY aspirin 81 mg chewable tab(s) 81 mg ORAL DAILY escitalopram oxalate 10 mg tab(s) (LEXAPRO) 10 mg ORAL DAILY NaCl 0.9% iv flush bag 20 mL INTRAVENOUS PRN insulin glargine 22 Units pen (long acting) 22 Units SUBCUTANEOUS AT BEDTIME insulin lispro injection (rapid acting) (ADMElog) SUBCUTANEOUS w MEALS AND HS sodium bicarbonate 650 mg tab(s) 650 mg ORAL TID amLODIPine 5 mg tab(s) (NORVASC) 5 mg ORAL DAILY rivaroxaban 10 mg tab(s) (XARELTO) 10 mg ORAL DAILY Objective PHYSICAL EXAM: BP 173/76 Pulse 75 Temp (Src) 98.7 (Oral) Resp 29 Ht 3' 9 (1.14m) Wt 162 lb 0.6 oz (73.5kg) SpO2 95% BMI 56.26 kg/(m2). O2 Therapy: Room Air Physical Exam Performed GENERAL: Alert, no distress, cooperative LUNGS: Lungs clear to auscultation, Good diaphragmatic excursion CARDIAC: Normal S1 and S2; no rubs, murmurs, or gallops ABDOMEN: Abdomen soft, non-tender, BS normal, No masses or organomegaly EXTREMITIES: b/l AKA Lines, Drains, and Airways Line Duration Peripheral 10/03/24 1641 Right Forearm 20 Gauge 1 day Peripheral [id number] [facility] Left Forearm 20 Gauge 1 day Reviewed lines and needs to be continued: REASONS: Telemetry DATA: Diagnostic tests reviewed for today's visit: Most recent labs Most recent imaging Assessment/Plan Problem List Assessment AND Plan PVD (peripheral vascular disease) (HCC) Type 2 DM with CKD stage 3 and hypertension (HCC) GA (acute kidney injury) ([facility]) Obesity, Class III, BMI >= 40 Sleep apnea Hyperkalemia HOSPITAL COURSE: Shilo Hathaway is a 73 year old male presented with past medical history of type 2 DM, CAD, HLD, PAD s/p b/l AKA was sent in to the ER when he was found to have potassium>7 on outpatient routine blood work. He was admitted to the ICU, nephrology was consulted, his home lisinopril and aldactone were held. He was treated with lokelma, sodium bicarb. His potassium decreased to 4.8 and he is being transferred to regular nursing floor. - continue to hold home lisinopril and aldactone - continue home norvasc, may have to increase dose if BP remains high. - monitor on tele - check repeat labs in am - continue home aspirin, plavix and statin - ok to transfer to [facility] Morbid Obesity Class 3 Medication and Non-Pharmacologic VTE Prophylaxis/Anticoagulants Anticoagulant AND Antiplatelet Medications (From admission, onward) Start Dose Route Frequency Last Action Ordered Stop 10/05/24 1000 rivaroxaban 10 mg tab(s) (XARELTO) 10 mg ORAL DAILY Given, 10/05 1106 10/05/24 0941 -- 10/04/24 0900 clopidogrel 75 mg tab(s) (PLAVIX) 75 mg ORAL DAILY Given, 10/05 0814 10/03/241911 -- 10/04/24 0900 aspirin 81 mg chewable tab(s) 81 mg ORAL DAILY Given, 10/05 0814 10/03/241911 -- 10/03/241914 activity - mobilize patient (mi,ga) VTE Prophylaxis: VTE prophylaxis appropriate Disposition: To be determined Plan of care discussed with Patient and RN Plan communicated to: N/A SIGNATURE: Kenneth Antunez MD PATIENT NAME: Shilo Hathaway DATE: October 05, 2024 TIME: 3:16 PMSouthwest General Health [id number] NoteHNO ID: [id number] Author: DARRON VALENTINO MD Service: Critical Care Author Type: Physician Type: Progress Notes Filed: 10/05/2024 13:15 Note Text: ICU DAILY PROGRESS NOTE Admit Date: 10/03/2024 SERVICE DATE: 10/05/2024 Reason for Follow Up: Hyperkalemia Assessment/Plan ASSESSMENT: Principal Problem: Hyperkalemia (POA: Yes) Active Problems: Diarrhea (POA: No Obesity, Class III, BMI >= 40 (POA: Yes GA on CKD 3, POA: No Hypomagnesemia, POA: Yes Chronic anemia, POA: Yes Primary hypertension, POA: Yes PVD s/p BL BKA, POA: Yes History of sleep apnea, POA: Yes DM2 with nephropathy, POA: Yes Mild metabolic acidosis, POA: Yes Plan: Renal function improving, K level back to normal, 1 dose of Lokelma, sodium bicarb, as per nephrology Off normal saline Baby aspirin, Plavix Rapid and long acting insulin On metoprolol, Aldactone and lisinopril held Home Xarelto at 10 mg daily CODE STATUS: Full code No objection to transfer out of ICU ICU Checklist A= Assess, Prevent, Manage Pain C= Choice of Sedation and Analgesia B= Both Spontaneous Awakening and Breathing Trials D= Delirium: Assess, Prevent and Manage E= Early Mobility/Excercise ICU Mobility: F= Family Engagement and Empowerment ICU plan of care visit at bedside in last 24 hours: Yes, Provider, RN, Patient/ designee ICU Disposition: Prevention: VTE Prophylaxis: Patient/Family Updated: Discussed with patient Plan of care discussed with: ICU Team and RN. Subjective HPI: 73-year-old male with Hx of CAD, essential tremor, INOCENCIA, CVA, HTN, HLD, VA, PVD s/p b/l AKA, DM2, CHANTELL, presented to ED 10/03 for high potassium. He was getting routine blood work done outpatient and it was found that he had a K of 6.1 yesterday. His doctor advised him to go to the ED but he was unable to find a ride. Repeat blood work outpatient showing a K of 6.8 so he went to the ED where his K was 7.2. Creatinine at baseline of 1.18. BUN 25. Bicarb 20. EKG showing NSR, received hyperkalemia treatment, Lokelma and his lisinopril and Aldactone were held 10/04: Feels fine, denies any fever or chills, no chest pain or palpitation, no short of breath wheezing or cough, denies any headache or weakness, no nausea vomiting or abdominal pain, noted loose stools started after being in the hospital, adequate urine output, no new skin rash or lesions 10/05: Feels fine, on room air, denies any fever or chills, no chest pain or palpitation, denies any dizziness or weakness, no short of breath or cough, no nausea vomiting, no further diarrhea, adequate urine output, no new skin rash or lesion Objective Physical Exam BP 179/75 Pulse 66 Temp (Src) 98.7 (Oral) Resp 24 Ht 3' 9 (1.14m) Wt 162 lb 0.6 oz (73.5kg) SpO2 95% BMI 56.26 kg/(m2). O2 Therapy: Room Air General : Well nourished, in no distress Eyes: Pupils equal, round, No scleral icterus ENT: Trachea midline, no JVD Heart: RRR, no murmurs Lungs: clear , no wheezes rales, or rhonchi. Abdomen: Soft and nontender, no guarding Musculoskeletal: no bony or joint deformity, BL AKA Neuro: Alert and oriented x3, following commands Skin: No acute rash or skin change, skin is normal to palpation DATA: LABS: Recent Labs 10/05/24 1226 10/05/24 0403 10/04/24 1513 10/04/24 1044 10/04/24 0433 10/04/24 0432 10/03/24 2000 10/03/24 1640 WBC -- 6.87 -- -- 10.66 -- -- 8.75 HB -- 9.8* -- -- 10.6* -- -- 11.3* HCT -- 29.6* -- -- 33.1* -- -- 33.9* PLT -- 194 -- -- 233 -- -- 224 NA 135* 139 136 134* -- 138 < > 133* K 4.8 5.5* 5.9* 5.7* -- 6.2* < > 7.2* CHLOR 101 107 104 103 -- 105 < > 103 CO2 22 24 17* 21* -- 22 < > 20* BUN 24 27* 31* 31* -- 30* < > 25* CREAT 1.12 1.31* 1.50* 1.69* -- 1.68* < > 1.18 GLUC 219* 100* 176* 119* -- 110* < > 182* CA 8.9 8.7 9.1 9.0 -- 9.3 < > 9.9 MG -- 1.8 -- -- -- 1.5* -- -- P 3.4 3.9 -- 4.0 -- 4.0 < > -- < > = values in this interval not displayed. Recent Labs 10/05/24 1226 10/05/24 0403 10/04/24 1044 10/03/24 1640 10/02/24 1318 TPROT -- 6.4 -- 7.7 7.6 ALB 3.9 3.7* 4.0 4.6 4.6 ALT -- 8* -- 12 12 AST -- 13* -- 15 13* ALKPHOS -- 49 -- 57 58 TBILI -- 0.3 -- 0.4 0.3 Recent Labs 10/04/24 1101 LACT 0.7 CULTURES: + MSSA screen CXR : CT Chest: CT Abdomen: ECHO: Portions of this note including HPI, ROS, impression/plan, and examination may have been copied forward as to provide important historical information essential in contributing to medical decision making. Documentation has been reviewed and edited as necessary to support clinical decision making for today's visit and to reflect my own independent evaluation of this patient on 10/05/2024 Darron Valentino MD 1:10 PM 10/05/2024[facility] [id number] NoteHNO ID: [id number] Author: LIDYA IBRAHIM RN Service: Care Management Author Type: Registered Nurse Type: Care Mgt Initial Assessment Filed: 10/04/2024 14:16 Note Text: CARE MANAGEMENT: ASSESSMENT AND DISCHARGE PLAN SERVICE DATE: October 04, 2024 SERVICE TIME: 2:13 PM PCP: Paulina Severino MD--Confirmed Primary Contact: Extended Emergency Contact Information Primary Emergency Contact: Rylee Hathaway Mobile Relation: Spouse Secondary Emergency Contact: rylee hathaway Address: [address] [place] [id number] [place] [address] Mobile Relation: Spouse Admission Status: Inpatient Insurance Provider: UHC A[employer] MEDICARE HMO Discharge Planning requested by: Per Department Practice Potential Transition Plans No Services Indicated Advance Directives Current Advance Directive: Health Care Power of Lay Out Technician;Living Will In Chart: No Byproduct Engineer Attempted to Assist with AD Completion: Yes Current Living Arrangements and Support Lives with: Spouse/significant other Type of Residence: Private Residence (House) Does the patient have to climb stairs at home?: Yes;stairs outside the home;stairs within the home Support: Family members, Spouse/significant other, Friends/neighbors How do you manage to accomplish the following: Independent: Ambulation;Bathe/Shower;Dress;Meals/Meal Prep;Going to the bathroom;Medication Management Needs Assistance: Transportation to appointments/community Current Services/Equipment Current Post-Acute Service(s): DME Current DME Type: Glucometer device and supplies, Wheelchair-manual, Grab bars, Elevated toilet seat, Other: See Comment, Shower seat (Dexcom) Discharge Planning Patient Goal(s): Independent living, Be able to go home, General wellness [place] of Choice Explained: [place] of Choice Given: No Reason Not Given: No placements necessary Are you interested in bedside delivery of your medications? No [facility] in [place]. Discharge Planning Participant(s): Patient Patient/Family Comments: Caregiver Assessment: Caregiver is ready, willing and able to meet the patient's needs as recommended by the inter-professional team: No Caregiver needed Transport at Discharge: Transportation Arrangements: Car Needs Prior to Discharge: Needs Prior to Discharge: To Be Determined;Other: See Comment (Medical Clearance) Post-Acute Discharge Plan: Case Management met at bedside with patient, introduced self and role. Pt is 73 y/o, with admitting Dx of Hyperkalemia. Patient is on Lokelma. Pt is AANDO X 3, IPTA, but does not drive. US kidney/bladder is pending. Hx of PVD, CVA, VA, and bilateral AKA. Patient is from home with Spouse. Uses manual WC to ambulate. No active services in the home. Spouse to provide transport upon discharge. CM instructed patient that CM team will remain available for any dc needs. SIGNATURE: Lidya Ibrahim RN PATIENT NAME: Shilo Hathaway DATE: October 04, 2024 TIME: 2:13 PMSouthwest General Health [id number] NoteHNO ID: [id number] Author: DARRON VALENTINO MD Service: Critical Care Author Type: Physician Type: Progress Notes Filed: 10/04/2024 12:59 Note Text: ICU DAILY PROGRESS NOTE Admit Date: 10/03/2024 SERVICE DATE: 10/04/2024 Reason for Follow Up: Hyperkalemia Assessment/Plan ASSESSMENT: Principal Problem: Hyperkalemia (POA: Yes) Active Problems: Diarrhea (POA: No Obesity, Class III, BMI >= 40 (POA: Yes GA on CKD 3, POA: No Hypomagnesemia, POA: Yes Chronic anemia, POA: Yes Primary hypertension, POA: Yes PVD s/p BL BKA, POA: Yes History of sleep apnea, POA: Yes DM2 with nephropathy, POA: Yes Mild metabolic acidosis, POA: Yes Plan: Nephrology consult, started on Lokelma, sodium bicarb, Normal saline Baby aspirin, Plavix Rapid and long acting insulin On metoprolol, Aldactone and lisinopril held Was on Xarelto 10 mg daily CODE STATUS: Full code No objection to transfer out of ICU when K level back to normal ICU Checklist A= Assess, Prevent, Manage Pain C= Choice of Sedation and Analgesia B= Both Spontaneous Awakening and Breathing Trials D= Delirium: Assess, Prevent and Manage E= Early Mobility/Excercise ICU Mobility: F= Family Engagement and Empowerment ICU plan of care visit at bedside in last 24 hours: Yes, Provider, RN, Patient/ designee ICU Disposition: Prevention: VTE Prophylaxis: Patient/Family Updated: Discussed with patient Plan of care discussed with: ICU Team and RN. Subjective HPI: 73-year-old male with Hx of CAD, essential tremor, INOCENCIA, CVA, HTN, HLD, VA, PVD s/p b/l AKA, DM2, CHANTELL, presented to ED 10/03 for high potassium. He was getting routine blood work done outpatient and it was found that he had a K of 6.1 yesterday. His doctor advised him to go to the ED but he was unable to find a ride. Repeat blood work outpatient showing a K of 6.8 so he went to the ED where his K was 7.2. Creatinine at baseline of 1.18. BUN 25. Bicarb 20. EKG showing NSR, received hyperkalemia treatment, Lokelma and his lisinopril and Aldactone were held 10/04: Feels fine, denies any fever or chills, no chest pain or palpitation, no short of breath wheezing or cough, denies any headache or weakness, no nausea vomiting or abdominal pain, noted loose stools started after being in the hospital, adequate urine output, no new skin rash or lesions Objective Physical Exam BP 130/60 Pulse 64 Temp (Src) 98.4 (Oral) Resp 18 Ht 3' 9 (1.14m) Wt 158 lb 1.1 oz (71.7kg) SpO2 96% BMI 54.88 kg/(m2). O2 Therapy: Room Air General : Well nourished, in no distress Eyes: Pupils equal, round, No scleral icterus ENT: Trachea midline, no JVD Heart: RRR, no murmurs Lungs: clear to auscultation bilaterally, no wheezes rales, or rhonchi. Abdomen: Soft and nontender, no guarding Musculoskeletal: no bony or joint deformity, BL AKA Neuro: Alert and oriented x3, following commands Skin: No acute rash or skin change, skin is normal to palpation DATA: LABS: Recent Labs 10/04/24 1044 10/04/24 0433 10/04/24 0432 10/03/24 2342 10/03/24 2000 10/03/24 1640 10/03/24 1509 10/02/24 1318 WBC -- 10.66 -- -- -- 8.75 -- 7.70 HB -- 10.6* -- -- -- 11.3* -- 11.2* HCT -- 33.1* -- -- -- 33.9* -- 35.2* PLT -- 233 -- -- -- 224 -- 204 NA 134* -- 138 136 < > 133* -- 139 K 5.7* -- 6.2* 6.4* < > 7.2* < > 6.1* CHLOR 103 -- 105 103 < > 103 -- 103 CO2 21* -- 22 22 < > 20* -- 24 BUN 31* -- 30* 28* < > 25* -- 23 CREAT 1.69* -- 1.68* 1.45* < > 1.18 -- 1.18 GLUC 119* -- 110* 113* < > 182* -- 85 CA 9.0 -- 9.3 9.9 < > 9.9 -- 10.0 MG -- -- 1.5* -- -- -- -- -- P 4.0 -- 4.0 -- -- -- -- -- < > = values in this interval not displayed. Recent Labs 10/04/24 1044 10/03/24 1640 10/02/24 1318 TPROT -- 7.7 7.6 ALB 4.0 4.6 4.6 ALT -- 12 12 AST -- 15 13* ALKPHOS -- 57 58 TBILI -- 0.4 0.3 Recent Labs 10/04/24 1101 LACT 0.7 CULTURES: CXR : CT Chest: CT Abdomen: ECHO: Portions of this note including HPI, ROS, impression/plan, and examination may have been copied forward as to provide important historical information essential in contributing to medical decision making. Documentation has been reviewed and edited as necessary to support clinical decision making for today's visit and to reflect my own independent evaluation of this patient on 10/04/2024 Darron Valentino MD 11:55 AM [facility]2024[id number] Telephone encounter Note* Telephone Encounter - Lyubov Hernandez APRN.CNP - 10/03/2024 3:51 PM EST Provider called patient with new critical lab result, potassium 6.8. Patient just returned home from the lab, provider advised him to go to the ER immediately. Patient states that his coach driver was still there and would transport him to [facility] [place]. Lyubov Hernandez APRN.CNP [facility]01-14-2025 Miscellaneous Notes* Telephone Encounter - Lyubov Hernandez APRN.CNP - 10/03/2024 3:51 PM EST Provider called patient with new critical lab result, potassium 6.8. Patient just returned home from the lab, provider advised him to go to the ER immediately. Patient states that his coach driver was still there and would transport him to [facility] [place]. Lyubov Hernandez APRN.CNP * Telephone Encounter - Corrina Cortes - 10/03/2024 2:32 PM EST Patient called back to confirm location - he was notified per Lyubov to go to the lab at either [facility] or [facility]. He is going to [facility]. * Telephone Encounter - Lyubov Hernandez APRN.CNP - 10/03/2024 1:24 PM EST Provider called patient to discuss elevated potassium. States he talked to the doctor last night about the result, but didn't understand him and didn't know he was supposed to go to the ER. Stated he was in the bathroom earlier today when the nurse called because he's having looser stools, but otherwise feels at baseline. Denies chest pain/palpitations/muscle weakness. Advised patient to get potassium re-drawn today STAT and if unable to go today, hold spironolactone in the morning (already took today's dose) and get lab drawn in the morning. Patient will call a family member now to see if they can drive him to the lab [facility]. ER for any red flag symptoms. Patient verbalized understanding. Lyubov Hernandez APRN.NATHALY * Telephone Encounter - Savana Teran RN - 10/03/2024 11:07 AM EST Called patient regarding message below, no answer. Left message to call office back. RN please try again later Savana Teran RN * Telephone Encounter - Lyubov Hernandez APRN.CNP - 10/03/2024 10:57 AM EST Patient had a critically high potassium result last night and was recommended by the electronic organ technician physician to go to the ER, but I do not see any ER visits in [facility]. Please call patient to see if he went to an outside ER last night. If not, I need him to get repeat Stat labs immediately, and the only options for Stat labs through the [facility] are [facility] or [facility] in [place] Lyubov Hernandez APRN.NATHALY documented in this encounterUniversity Hospitals [facility]01-14-2025 Telephone encounter Note * Telephone Encounter - Corrina Cortes - 10/03/2024 2:32 PM EST Patient called back to confirm location - he was notified per Lyubov to go to the lab at either [facility] or [facility]. He is going to [facility]. [facility]01-14-2025 Telephone encounter Note* Telephone Encounter - Lyubov Hernandez APRN.CNP - 10/03/2024 1:24 PM EST Provider called patient to discuss elevated potassium. States he talked to the doctor last night about the result, but didn't understand him and didn't know he was supposed to go to the ER. Stated he was in the bathroom earlier today when the nurse called because he's having looser stools, but otherwise feels at baseline. Denies chest pain/palpitations/muscle weakness. Advised patient to get potassium re-drawn today STAT and if unable to go today, hold spironolactone in the morning (already took today's dose) and get lab drawn in the morning. Patient will call a family member now to see if they can drive him to the lab [place]. ER for any red flag symptoms. Patient verbalized understanding. Lyubov Hernandez APRN.NATHALY [facility]01-14-2025 Telephone encounter Note* Telephone Encounter - Savana Teran RN - 10/03/2024 11:07 AM EST Called patient regarding message below, no answer. Left message to call office back. RN please try again later Savana Teran RN [facility]01-14-2025 Telephone encounter Note* Telephone Encounter - Jonathan Lambert DO - 10/03/2024 11:01 AM EST Received page at 8:11pm Hi K 6.1 Contacted pt immediately recommended pt evaluated in ED It appears pt did not go to ED, discussed with Lyubov Hernandez LASER PRINT OPERATOR stat bmp ordered, pt will hold his aldactone until evaluated, monitor bp at home [facility]01-14-2025 Miscellaneous Notes* Telephone Encounter - Jonathan Lambert DO - 10/03/2024 11:01 AM EST Received page at 8:11pm Hi K 6.1 Contacted pt immediately recommended pt evaluated in ED It appears pt did not go to ED, discussed with Lyubov Hernandez LASER PRINT OPERATOR stat bmp ordered, pt will hold his aldactone until evaluated, monitor bp at home documented in this encounterUniversity Hospitals [facility]01-14-2025 Telephone encounter Note * Telephone Encounter - Lyubov Hernandez APRN.NATHALY - 10/03/2024 10:57 AM EST Patient had a critically high potassium result last night and was recommended by the electronic organ technician physician to go to the ER, but I do not see any ER visits in [facility]. Please call patient to see if he went to an outside ER last night. If not, I need him to get repeat Stat labs immediately, and the only options for Stat labs through the [facility] are [facility] or [facility] in [place] Lyubov Hernandez APRN.PARK ACTIVITIES COORDINATOR [facility]12-12-2024 Miscellaneous Notes* Telephone Encounter - Mellisa Pickett LPN - 08/31/2024 11:18 AM EST Received orders from [facility]. Placed in provider's inbox for review. Route to [place] scanning documented in this encounterUniversity Hospitals Ge[facility] Center12-12-2024 Telephone encounter Note * Telephone Encounter - Mellisa Pickett LPN - 08/31/2024 11:18 AM EST Received orders from [facility]. Placed in provider's inbox for review. Route to MA scanning [facility]12-03-2024 Telephone encounter Note* Telephone Encounter - Minoo Boone LPN - 08/22/2024 2:41 PM EST Received 08/21/2024 from [facility]. Placed in provider's inbox for review. Route to [place] for faxing. [facility]12-03-2024 Miscellaneous Notes* Telephone Encounter - Minoo Boone LPN - 08/22/2024 2:41 PM EST Received 08/21/2024 from [facility]. Placed in provider's inbox for review. Route to [place] for faxing. documented in this encounterUniversity Hospitals Geauga Medical Center12-03-2024 NoteProm[facility]12-[facility] History of Present illness Narrative* Lyubov Hernandez APRN.PARK ACTIVITIES COORDINATOR - 08/22/2024 10:57 AM EST Images from the original note were not included. Shilo Hathaway is a 73 year old male here for a Medicare wellness visit. Has Freestyle 2 CGM, brought reader today. Average blood sugar in the last 7 days: 152, low today 137, high 195. Last 90 days average 165. Did have a low of 64 the other day before dinner, asymptomatic. Medicare Health Risk Assessment General Health Good Exercise: Minutes/Day 40 min Exercise: Days/Week 2 days Alcohol: Daily Use Never Alcohol: Drinks/Day Patient does not drink Alcohol: 6 or more drinks Never Feel off balance Yes Concerns: Teeth/Dentures No Concerns: Sexual function Yes Troubled by feelings None of the above Frequency: Eating healthy diet More than half the days ADLs requiring help Walking; Cooking; Sitting or standing; Driving Safety precautions in home/vehicle Yes Smoke, vape, chews tobacco No Difficulty hearing No Difficulty seeing No Current Providers Specialists: I have reviewed specialist-related care of the patient in the medical record. Plastic surgery Vascular Cardiology Medical/Family history review Reviewed and updated problem list, medical/surgical/family/social history, medications, and allergies. Opioid use review Opioid Medications (last 90 days) No data to display Depression Screening PHQ-2 Score: 0 Cognitive screening Mini Cog Score: 5 Cognitive screening reviewed and No further action needed (score 3-5). Functional Observation Was the patient's Timed Up & Go test unsteady or >= 12 seconds? Yes Advance Care Planning Surrogate decision maker and/or advance care plan documented Has paperwork at home, not in chart, advised to bring in at next visit Measurements BP 146/63 (BP Site: Right Arm, BP Position: Sitting, BP Cuff Size: Large Adult) Pulse 63 SpO2 97% Vision Screening: Follows with optometry/ophthalmology Assessment/Plan 1. Medicare annual wellness visit, subsequent - Counseled on healthy diet and regular exercise - Fall avoidance information provided - Personalized prevention plan provided 2. Atherosclerosis of mentasta coronary artery of mentasta heart without angina pectoris Stable, follows with cardiology 3. Mixed hyperlipidemia Controlled on medication. 4. Type 2 diabetes mellitus with diabetic neuropathy, with long-term current use of insulin (HCC) Continue current regimen, check A1C again in early September, future orders placed. - HEMOGLOBIN A1C; Future - COMPLETE BLOOD COUNT; Future - COMPREHENSIVE METABOLIC PANEL; Future 5. PAD (peripheral artery disease) (HCC) Stable, follows with vascular 6. S/P AKA (above knee amputation), right (HCC) 7. S/P AKA (above knee amputation) unilateral, left (HCC) Working with physical therapists with new prostheses. Also working with plastic surgeon for plannedright stump revision. Lyubov Hernandez APRN.CNP documented in this encounterUniversity Hospitals Geauga Medical Center12-03-2024 Instructions* Patient Instructions* Lyubov Hernandez APRN.CNP - 08/22/2024 10:36 AM EST Screening schedule The following prevention plan is recommended: Depression Screening Never done Anxiety Screening Never done Hepatitis C Screening Never done Advance Directive Discussion Never done Dilated Retinal Exam due on 11/26/2023 WHAT YOU CAN DO TO PREVENT FALLS Many falls can be prevented. By making some changes, you can lower your chances of falling. Four things YOU can do to prevent falls for you* and your caregiver 1. Begin a regular exercise program Exercise is one of the most important ways to lower your chances of falling. It makes you stronger and helps you feel better. Exercises that improve balance and coordination (like Jeramy Chi) are the most helpful. Lack of exercise leads to weakness and increases your chances of falling. Ask your doctor or health care provider about the best type of exercise program for you. 2. Have your health care provider review your medicines Have your doctor or pharmacist review all the medicines you take, even htco-mcm-egyoybc medicines. As you get older, the way medicines work in your body can change. Some medicines, or combinations of medicines, can make you sleepy or dizzy andcan cause you to fall. 3. Have your vision checked Have your eyes checked by an eye doctor at least once a year. You may be wearing the wrong glasses or have a condition like glaucoma or cataracts that limits your vision. Poor vision can increase your chances of falling. 4. Make your home safer About half of all falls happen at home. To make your home safer: Remove things you can trip over (like papers, books, clothes, and shoes) from stairs and places where you walk. Remove small throw rugs or use double-sided tape to keep the rugs from slipping. Keep items you use often in cabinets you can reach easily without using a step stool. Have grab bars put in next to your toilet and in the tub or shower. Use non-slip mats in the bathtub and on shower floors. Improve the lighting in your home. As you get older, you need brighter lights to see well. Hang light-weight curtains or shades to reduce glare. Have handrails and lights put in on all staircases. Wear shoes both inside and outside the house. Avoid going barefoot or wearing slippers. For more information, contact: Centers for Disease Control and Prevention www.cdc.gov/injury * This information may not apply if you have certain medical conditions. Screening schedule The following prevention plan is recommended: Depression Screening Never done Anxiety Screening Never done Hepatitis C Screening Never done Advance Directive Discussion Never done Dilated Retinal Exam due on 11/26/2023 WHAT YOU CAN DO TO PREVENT FALLS Many falls can be prevented. By making some changes, you can lower your chances of falling. Four things YOU can do to prevent falls for you* and your caregiver 1. Begin a regular exercise program Exercise is one of the most important ways to lower your chances of falling. It makes you stronger and helps you feel better. Exercises that improve balance and coordination (like Jeramy Chi) are the most helpful. Lack of exercise leads to weakness and increases your chances of falling. Ask your doctor or health care provider about the best type of exercise program for you. 2. Have your health care provider review your medicines Have your doctor or pharmacist review all the medicines you take, even cukc-xtm-fqlsssk medicines. As you get older, the way medicines work in your body can change. Some medicines, or combinations of medicines, can make you sleepy or dizzy andcan cause you to fall. 3. Have your vision checked Have your eyes checked by an eye doctor at least once a year. You may be wearing the wrong glasses or have a condition like glaucoma or cataracts that limits your vision. Poor vision can increase your chances of falling. 4. Make your home safer About half of all falls happen at home. To make your home safer: Remove things you can trip over (like papers, books, clothes, and shoes) from stairs and places where you walk. Remove small throw rugs or use double-sided tape to keep the rugs from slipping. Keep items you use often in cabinets you can reach easily without using a step stool. Have grab bars put in next to your toilet and in the tub or shower. Use non-slip mats in the bathtub and on shower floors. Improve the lighting in your home. As you get older, you need brighter lights to see well. Hang light-weight curtains or shades to reduce glare. Have handrails and lights put in on all staircases. Wear shoes both inside and outside the house. Avoid going barefoot or wearing slippers. For more information, contact: Centers for Disease Control and Prevention www.cdc.gov/injury * This information may not apply if you have certain medical conditions. documented in this encounterUniversity Hospitals Geauga Medical Center11-25-2024 Miscellaneous Notes* Telephone Encounter - Mellisa Pickett LPN - 08/14/2024 11:02 AM EST Received orders from [facility]. Placed in provider's inbox for review. Route to [place] fax documented in this encounterUniversity Hospitals Geauga Medical Center11-25-2024 Telephone encounter Note * Telephone Encounter - Mellisa Pickett LPN - 08/14/2024 11:02 AM EST Received orders from [facility]. Placed in provider's inbox for review. Route to [place] fax [facility]11-21-2024 Telephone encounter Note* Telephone Encounter - Minoo Boone LPN - 08/10/2024 2:15 PM EST Left message for patient that he is due for his medicare wellness before the end of the year. [facility]11-21-2024 Miscellaneous Notes* Telephone Encounter - Minoo Boone LPN - 08/10/2024 2:15 PM EST Left message for patient that he is due for his medicare wellness before the end of the year. documented in this encounterUniversity Hospitals Geauga Medical Center11-08-2024 Telephone encounter Note * Telephone Encounter - Wendie Pryor - 07/28/2024 3:52 PM EST Thank you, I will touch base with him! [facility]11-08-2024 Miscellaneous Notes* Telephone Encounter - Wendie Pryor - 07/28/2024 3:52 PM EST Thank you, I will touch base with him! * Telephone Encounter - Lyn Robin MA - 07/28/2024 3:48 PM EST Patient called in and I informed him that surgery is still pending. He said thank you! He also wants to know if surgery is possible before the end of the year? I told him I would pass along this message. Lyn Robin MA * Telephone Encounter - Wendie Pryor - 07/28/2024 3:09 PM EST Patient called to inquire about authorization for surgery. Called to let him know it's currently inpending status. documented in this encounterUniversity Hospitals Geauga Medical Center11-08-2024 Telephone encounter Note * Telephone Encounter - Lyn Robin MA - 07/28/2024 3:48 PM EST Patient called in and I informed him that surgery is still pending. He said thank you! He also wants to know if surgery is possible before the end of the year? I told him I would pass along this message. Lyn Robin MA [facility]11-08-2024 Telephone encounter Note* Telephone Encounter - Wendie Pryor - 07/28/2024 3:09 PM EST Patient called to inquire about authorization for surgery. Called to let him know it's currently inpending status. [facility]11-05-2024 NotePromedica [facility]11-05-2024 History of Present illness Narrative* Lyubov Hernandez APRN.PARK ACTIVITIES COORDINATOR - 07/25/2024 1:44 PM EST This note was created using Digitwhizriter. Subjective Shilo Hathaway is a 73 year old male. Patient with URI symptoms x 3 days. Hasn't taken any OTC medications, just honey and cepacol lozenges, whiskey. DMII: Dexcom broke, using finger stick glucometer over the last week, waiting on [employer] to mail lidia new meter. Fasting this morning was 243, lowest 128. Hasn't been eating much the last couple days. Doing physical therapy twice weekly to get used to new prosthetics. Saw plastic surgeon, waiting for approval on another procedure to reinnervate nerves. The history is provided by the patient. Review of Systems Constitutional: Positive for chills, diaphoresis and fatigue. Negative for fever. HENT: Positive for sore throat. Negative for congestion. Respiratory: Positive for cough. Negative for shortness of breath and wheezing. Cardiovascular: Negative for chest pain. Gastrointestinal: Negative for diarrhea and nausea. Allergic/Immunologic: Positive for immunocompromised state. PAST MEDICAL HISTORY Diagnosis Date Aortoiliac occlusive disease (HCC) Atherosclerotic heart disease of mentasta coronary artery without angina pectoris Carotid artery occlusion Carotid artery stenosis Cerebrovascular accident (CVA) (HCC) Coronary arteriosclerosis [place] 1998 Depressive disorder Disc disorder of lumbar region Diverticulitis of colon Diverticulitis of colon Essential tremor Gastroesophageal reflux disease Generalized anxiety disorder Hiatal hernia History of myocardial infarction Hyperlipidemia Hypertension Intervertebral disc disorder of lumbar region with myelopathy Irritable bowel syndrome Myocardial infarction (HCC) Old myocardial infarction Peripheral vascular disease (HCC) PERS HX COLONIC POLYPS Preoperative testing 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 Sleep apnea SOB (shortness of breath) 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) Type 2 diabetes mellitus (HCC) PAST SURGICAL HISTORY Procedure Laterality Date AMPUTATION OF LOWER LEG Left 05/05/2022 Left above knee amputation AMPUTATION OF LOWER LEG Right 09/17/2023 Right above-knee amputation ANGIOPLASTY 1998, 2004, 2014 CAROTID ENDARTERECTOMY Bilateral right 02/2013, left 08/2001 COLONOSCOPY 05/26/2023 COLONOSCOPY FLX DX W/COLLJ SPEC WHEN PFRMD 2000 Colonoscopy with polypectomies COLONOSCOPY SCREENING 07/04/2021 tubular adenomas x5, severe diverticulosis ESOPHAGOGASTRODUODENOSCOPY TRANSORAL DIAGNOSTIC 2000 EGD reportedly normal EXPLORATION GROIN Left 04/29/2018 Left Groin Exploration, Thrombectomy of Left Limb of Axillo-Bifemoral Bypass, Revision of Left Femoral Anastomosis INSERT INTRACORONARY STENT 1998 RCA LAPAROSCOPY SURG CHOLECYSTECTOMY 1997 Cholecystectomy, lap LEFT HEART CATH,PERCUTANEOUS 1998 Cardiac cath, L heart PAST SURGICAL HISTORY OF Carotid stenosis PAST SURGICAL HISTORY OF Bilateral 12/25/2016 Axillo bifem bypass PAST SURGICAL HISTORY OF ureter removal STENT PLACEMENT 1998 BMS RCA STENT PLACEMENT 11/2013 MARVIN RCA ALLERGIES Atorvastatin, Levofloxacin, and Metformin MEDICATIONS TRESIBA FLEXTOUCH U-100 100 unit/mL (3 mL) injection pen Inject 25 Units subcutaneously daily at bedtime. lisinopril (ZESTRIL) 5 mg tablet Take 1 tablet by mouth once daily. gabapentin (NEURONTIN) 600 mg tablet Take 1 tablet by mouth four times daily for 90 days. metoprolol succinate ER (TOPROL XL) 25 mg 24 hr tablet Take 1 tablet by mouth once daily. spironolactone (ALDACTONE) 25 mg tablet Take 1 tablet by mouth once daily. amLODIPine (NORVASC) 5 mg tablet Take 1 tablet by mouth once daily. fenofibrate nanocrystallized (TRICOR) 145 mg tablet Take 1 tablet by mouth once daily. insulin lispro (HUMALOG KWIKPEN) 100 unit/mL INJECT 12 UNITS SUBCUTANEOUSLY THREE TIMES DAILY BEFORE MEALS - ADD 2 UNITS IF GLUCOSE IS OVER 250 escitalopram oxalate (LEXAPRO) 10 mg tablet Take 1 tablet by mouth once daily. rivaroxaban (XARELTO) 10 mg tablet Take 1 tablet by mouth once daily. Blood-Glucose Sensor (DEXCOM G7 SENSOR) katlyn 1 Each every 2 weeks. Patient is on insulin Blood-Glucose Meter,Continuous (DEXCOM G7 SERVICE BAR CASHIER) misc Check glucose throughout the day. Patient is on insulin rosuvastatin (CRESTOR) 20 mg tablet Take 1 tablet by mouth once daily. cyclobenzaprine (FLEXERIL) 5 mg tablet Take 1 tablet by mouth three times a day as needed. ascorbic acid, vitamin C, (VITAMIN C) 500 mg tablet Take 1 tablet by mouth two times a day. clopidogrel (PLAVIX) 75 mg tablet Take 1 tablet by mouth once daily. aspirin 81 mg chewable tablet Take 1 tablet by mouth once daily. UNIFINE PENTIPS PLUS 32 gauge x Use for insulin pen injections 5 times daily, as directed. DX: E11.42, E11.65, Z79.4 ACETAMINOPHEN (TYLENOL ORAL) Take 1-2 tablets by mouth every 6 hours as needed. MULTIVIT &MINERALS/FERROUS FUM (MULTI VITAMIN ORAL) Take by mouth once daily. pantoprazole DR (PROTONIX) 40 mg tablet Take 1 tablet by mouth once daily. FAMILY HISTORY Problem Relation Age of Onset Ischemic Heart Disease Father Cancer Father Coronary Artery Disease Father Breast Cancer Mother Social History Tobacco Use Smoking status: Former Current packs/day: 0.00 Types: Cigarettes Quit date: 03/06/1999 Years since quittin.4 Smokeless tobacco: Never Tobacco comments: Start date: 1969; Stop date: 1998 Vaping Use Vaping status: Never Used Substance Use Topics Alcohol use: No Comment: abstinent x 6 yrs Drug use: No Objective BP 130/67 Pulse 72 SpO2 96% Physical Exam Vitals and nursing note reviewed. Constitutional: Appearance: He is well-developed. He is not ill-appearing. HENT: Mouth/Throat: Mouth: Mucous membranes are moist. Pharynx: Uvula midline. No oropharyngeal exudate or posterior oropharyngeal erythema. Cardiovascular: Rate and Rhythm: Normal rate and regular rhythm. Heart sounds: Normal heart sounds. Pulmonary: Effort: Pulmonary effort is normal. Breath sounds: Normal breath sounds. Comments: No cough noted Lymphadenopathy: Cervical: No cervical adenopathy. Skin: General: Skin is warm and dry. Neurological: Mental Status: He is alert and oriented to person, place, and time. Assessment and Plan] 1. Viral URI with cough Likely viral, lungs clear, continue supportive care. Follow up for any new/worsening symptoms. 2. Type 2 diabetes mellitus with diabetic peripheral angiopathy without gangrene, with long-term current use of insulin (HCC) Uncontrolled. Increase long acting insulin to 28 units at bedtime, continue meal time insulin as 12units with meals, add 2 units for blood sugars >250. May communicate via [employer] over the next 2months with updated blood sugar readings once he has Dexcom meter again, likely need to get better control before plastic surgeon to proceed with elective procedure. - TRESIBA FLEXTOUCH U-100 100 unit/mL (3 mL) injection pen; Inject 28 Units subcutaneously daily atbedtime. Dispense: 15 mL; Refill: 3 Lyubov Hernandez APRN.NATHALY documented in this encounterUniversity Hospitals [facility]10-30-2024 Telephone encounter Note * Telephone Encounter - Loan Serra LPN - 07/19/2024 4:14 PM EDT Spoke with patient about test results and recommendations to continue current regimen and follow up. Patient verbalizes understanding and is agreeable. Loan Serra LPN [facility]10-30-2024 Miscellaneous Notes* Telephone Encounter - Loan Serra LPN - 07/19/2024 4:14 PM EDT Spoke with patient about test results and recommendations to continue current regimen and follow up. Patient verbalizes understanding and is agreeable. Loan Serra LPN * Telephone Encounter - Eduin Coleman APRN.CNP - 07/19/2024 4:10 PM EDT Received patients echocardiogram results. Please call patient and let him know that his echocardiogram is stable. His EF is 68%, normal wall motion noted, trivial pericardial noted, and no signficant valvular abnormalities noted. Please have the patient continue him current regimen and follow up. Thank you, Eduin Coleman APRN.NATHALY documented in this encounterUniversity Hospitals Geaug[facility] Center10-30-2024 Telephone encounter Note * Telephone Encounter - Eduin Coleman APRN.CNP - 07/19/2024 4:10 PM EDT Received patients echocardiogram results. Please call patient and let him know that his echocardiogram is stable. His EF is 68%, normal wall motion noted, trivial pericardial noted, and no signficant valvular abnormalities noted. Please have the patient continue him current regimen and follow up. Thank you, Eduin Coleman APRN.NATHALY [facility] Work Phone: [phone] Telephone encounter Note* Telephone Encounter - Archana Child - 07/14/2024 11:10 AM EDT Jo Ann Owens- called to request the office notes be faxed from recent office visit. Faxed to number [phone] [facility]10-25-2024 Miscellaneous Notes* Telephone Encounter - Archana Child - 07/14/2024 11:10 AM EDT Jo Ann Owens- called to request the office notes be faxed from recent office visit. Faxed to number [phone] documented in this encounterUniversity Hospitals Geaug[facility] Center10-23-2024 Instructions* Patient Instructions* Eduin Coleman APRN.NATHALY - 07/12/2024 2:21 PM EDT Continue current regimen. Please call and get your echocardiogram scheduled and completed. Follow up in 6 months with [facility] or Dr. Moran. Please call if you have any questions or concerns. documented in this encounterUniversity Hospitals Geauga [facility] Center10-23-2024 History of Present illness Narrative* Eduin Coleman APRN.CNP - 07/12/2024 2:00 PM EDT PRIMARY CARE PHYSICIAN: Paulina Severino [address] [place] [address] [place] [address] Chief Complaint Patient presents with: Cardiology Follow Up : Coronary artery disease HISTORY OF PRESENT ILLNESS: Mr. Hathaway is a 73 year old male who has a past medical history of sciatic pain, diabetes type 2, HFrEF, CAD, hyperlipidemia s/p vascular bypass, NSTEMI, PAD, lung nodule, GERD, polyps, AKA and CVA comes into the office for follow up. Patient is known to Dr. Moran, who first saw the patient in 2017 to establish cardiac care. During this time patient previously saw a different ball truing machine operator at outside hospital in which she was changing care over to Dr. Moran. He does have a major history of listed surgery in which he follows vascular closely with. He did have a history of a carotid enterectomy, with uncontrolled diabetes and peripheral neuropathy. He did have a stroke back in early 1999's as well as occlusion of his common and external iliac stents. He did have a exactly 2 biprofunda bypass on 05/01 and a left AKA on05/05. During his appointment back in 2016, he was positive for claudication, but denying any chest pain, shortness of breath or orthopnea. He did previously had a stress test which showed no inducible ischemia or scarred myocardium. He has had echocardiogram which showed normal EF as well as a stable EKG. Over the years Dr. Moran continue to monitor his symptoms with minimal cardiac complaints. He was last seen in office on 11/11/2021 in which he previously had echocardiogram August 2020 showing EF of 70%, and had stable blood pressures. He was recommended for appropriate diabetes management as well as close follow- up with his vascular surgeon. He then was seen on 05/15/2022 in which she had elevated troponins around 400s. He was recommended for heart catheterization during this time, but was unable to hold his anticoagulation due to his AKIand biprofunda bypass. Today he feels with no cardiac complaints. He states that he does continue to follow closely with vascular who has been managing his blood pressures as well as his peripheral disease. Discussed with patient regarding his hospital stay as well as his echocardiogram results. Given patient's previous echocardiogram showing EF of 35%, will order repeat echocardiogram to further evaluate LV function. Patient agreeable plan of care. Patient continues deny any chest pain, short of breath or orthopnea.He states that he feels well, and has not had any cardiac issues. Pt denies chest pain, leg swelling, shortness of breath, heart palpitations, orthopnea, cough, fever, dizziness, near syncope or syncope, nausea, vomiting, diaphoresis, or falls. Reviewed medications, recent blood work, and testing. Reviewed with patient and adjusted as needed : PMH, PSH, Fam hx, Social hx, Allergies. Medications: Current Outpatient Medications Medication Sig Dispense Refill TRESIBA FLEXTOUCH U-100 100 unit/mL (3 mL) injection pen Inject 25 Units subcutaneously daily at bedtime. 15 mL 3 lisinopril (ZESTRIL) 5 mg tablet Take 1 tablet by mouth once daily. 90 tablet 3 gabapentin (NEURONTIN) 600 mg tablet Take 1 tablet by mouth four times daily for 90 days. 120 tablet 2 metoprolol succinate ER (TOPROL XL) 25 mg 24 hr tablet Take 1 tablet by mouth once daily. 90 tablet1 spironolactone (ALDACTONE) 25 mg tablet Take 1 tablet by mouth once daily. 90 tablet 1 amLODIPine (NORVASC) 5 mg tablet Take 1 tablet by mouth once daily. 30 tablet 2 fenofibrate nanocrystallized (TRICOR) 145 mg tablet Take 1 tablet by mouth once daily. 90 tablet 3 insulin lispro (HUMALOG KWIKPEN) 100 unit/mL INJECT 12 UNITS SUBCUTANEOUSLY THREE TIMES DAILY BEFORE MEALS - ADD 2 UNITS IF GLUCOSE IS OVER 250 15 mL 5 escitalopram oxalate (LEXAPRO) 10 mg tablet Take 1 tablet by mouth once daily. 90 tablet 3 rivaroxaban (XARELTO) 10 mg tablet Take 1 tablet by mouth once daily. 90 tablet 3 Blood-Glucose Sensor ([employer] Eye G7 SENSOR) katlyn 1 Each every 2 weeks. Patient is on insulin 6 Each 3 Blood-Glucose Meter,Continuous (DEXCOM G7 SERVICE BAR CASHIER) misc Check glucose throughout the day. Patient is on insulin 1 Each 0 rosuvastatin (CRESTOR) 20 mg tablet Take 1 tablet by mouth once daily. 90 tablet 3 cyclobenzaprine (FLEXERIL) 5 mg tablet Take 1 tablet by mouth three times a day as needed. [address] (PROTONIX) 40 mg tablet Take 1 tablet by mouth once daily. ascorbic acid, vitamin C, (VITAMIN C) 500 mg tablet Take 1 tablet by mouth two times a day. clopidogrel (PLAVIX) 75 mg tablet Take 1 tablet by mouth once daily. aspirin 81 mg chewable tablet Take 1 tablet by mouth once daily. UNIFINE PENTIPS PLUS 32 gauge x 5/32 Use for insulin pen injections 5 times daily, as directed. DX: E11.42, E11.65, Z79.4 500 Each 3 ACETAMINOPHEN (TYLENOL ORAL) Take 1-2 tablets by mouth every 6 hours as needed. MULTIVIT &MINERALS/FERROUS FUM (MULTI VITAMIN ORAL) Take by mouth once daily. No current facility-administered medications for this visit. Review of Systems Constitutional: Negative for activity change, appetite change, chills, diaphoresis, fatigue, fever and unexpected weight change. HENT: Negative for facial swelling and trouble swallowing. Eyes: Negative for visual disturbance. Respiratory: Negative for apnea, cough, chest tightness, shortness of breath, wheezing and stridor. Cardiovascular: Negative for chest pain, palpitations and leg swelling. Gastrointestinal: Negative for abdominal distention, abdominal pain, blood in stool, nausea and vomiting. Genitourinary: Negative for hematuria. Musculoskeletal: Negative for arthralgias and myalgias. Neurological: Negative for dizziness, syncope, speech difficulty, weakness, light-headedness, numbness and headaches. Psychiatric/Behavioral: Negative for confusion and sleep disturbance. Physical Examination: Vitals:BP 125/69 Pulse 62 Resp 16 Wt 165 lb (74.8kg) SpO2 96% Last 2 Encounter Wt Readings: Date: Wt: 03/27/2024 (0 kg) 11/30/2023 (0 kg) Physical Exam Vitals reviewed. Constitutional: Appearance: Normal appearance. HENT: Head: Normocephalic. Nose: Nose normal. Eyes: Pupils: Pupils are equal, round, and reactive to light. Neck: Vascular: No carotid bruit. Cardiovascular: Rate and Rhythm: Normal rate and regular rhythm. Pulses: Normal pulses. Heart sounds: Normal heart sounds. No murmur heard. No friction rub. No gallop. Pulmonary: Effort: Pulmonary effort is normal. No respiratory distress. Breath sounds: Normal breath sounds. No stridor. No wheezing, rhonchi or rales. Chest: Chest wall: No tenderness. Abdominal: General: Bowel sounds are normal. There is no distension. Palpations: Abdomen is soft. There is no mass. Tenderness: There is no abdominal tenderness. There is no guarding. Musculoskeletal: General: Deformity (Bilateral AKA) present. Normal range of motion. Skin: General: Skin is warm and dry. Neurological: General: No focal deficit present. Mental Status: He is alert and oriented to person, place, and time. Motor: No weakness. Gait: Gait normal. Psychiatric: Mood and Affect: Mood normal. Behavior: Behavior normal. Prior Cardiac Testing EKG 09/14/2024: -Sinus tachycardia Limited Echo 05/12/2022: -EF 35% CONCLUSIONS: - Exam indication: Shortness of Breath - The left ventricle is normal in size. Left ventricular systolic function is moderately decreased. EF = 35 5% (visual est.) Definity contrast used for endocardial border detection. Left ventricular diastolic function was not evaluated. - The right ventricle is normal in size. Right ventricular systolic function is normal. - Exam was compared with the prior echocardiographic exam performed on 04/24/2022. Compared to report of prior study, LV function has decreased Stress test 04/24/2022: CONCLUSIONS: 1. SPECT Perfusion Study: Normal. 2. There is no scintigraphic evidence for inducible ischemia. 3. No evidence of scarred myocardium. 4. Left ventricle is normal in size. The left ventricle systolic function is normal. 5. Right ventricle is normal in size. The right ventricle systolic function is normal. 6. This is a low risk scan. Gated Stress FBP Gated Rest FBP LVEF % 67 69 Assessment and Plan: ASSESSMENT/PLAN: 1. HFrEF (heart failure with reduced ejection fraction) ([facility]) - ICD9: 428.20, ICD10: I50.20 (primary diagnosis) -Ef 35% noted on echocardiogram on 05/12/2022. -Patient currently feels well with no cardiac complaints -Currently being managed with lisinopril 5 mg, Metoprolol succinate 25 mg, and spirolactone 25 mg -Repeat echocardiogram ordered to reevaluate -Continue current regimen -Educated on importance of daily weights, daily blood pressure monitoring, and maintaining a cardiac diet. -Discussed foods to avoid such as canned foods, lunch meats, frozen meals, stein, sausage, and restaurant meals. -Encouraged to maintain a 2 L fluid restriction. 2. Atherosclerosis of mentasta coronary artery of mentasta heart without angina pectoris - ICD9: 414.01, ICD10: I25.10 -Currently being managed with amlodipine, aspirin, Plavix, metoprolol succinate, Crestor, Fenofibrate and Xarelto -Continue current regimen 3. Mixed hyperlipidemia - ICD9: 272.2, ICD10: E78.2 -Last lipid panel from 04/17/2024, cholesterol 91, HDL 30, LDL 22, and triglyceride 194. -On Crestor 20 mg -Continue current regimen -Encouraged healthy lifestyle changes including exercise and diet 4. PAD (peripheral artery disease) ([facility]) - ICD9: 443.9, ICD10: I73.9 -Currently being managed by Vascular -Currently being managed with regimen listed in #2 -Continue current regimen 5. Hypertension - ICD9: 401.9, ICD10: I10 -BP 125/69 at time of visit -Currently being managed with amlodipine, spironolactone, lisinopril and metoprolol succinate -Goal <130/80 -Continue current regimen -Educated patient to monitor blood pressure 1 hour after taking blood pressure medications and write down results to keep for future appointment. 6. S/P vascular bypass - ICD9: V45.89, ICD10: Z95.828 -Personal history -Continue current regimen 7. History of CVA (cerebrovascular accident) - ICD9: V12.54, ICD10: Z86.73 -Personal history -Continue current regimen 8. Type 2 diabetes mellitus with diabetic neuropathy, with long-term current use of insulin (HCC) -ICD9: 250.60, 357.2, V58.67, ICD10: E11.40, Z79.4 -Personal history -Continue current regimen Eduin Coleman APRN.PARK ACTIVITIES COORDINATOR Plan: Echo ordered, follow-up in 6 months Follow up planning: Return in about 6 months (around 01/10/2025) for Follow-up in 6 months with [facility] or Luisa . Medical Decision Making: Problems: Moderate: 2+ stable chronic illnesses Data: Unique test result(s) reviewed: 2 Unique test(s) ordered: 1 Risk: Low: Low risk from testing/treatment Medical Decision Making Level: 4 - Moderate The above note was partially created using a dictation recognition software. A reasonable attempt has been made to correct any errors. I have confirmed and edited as necessary the [facility] and information obtained by others. Reviewed with patient to call office regarding symptoms and reviewed with patient that if the patient begins having increasing symptoms or if their symptoms became worse in severity to call 911 and present to the closest emergency or urgent care department for further evaluation. documented in this encounterUniversity Hospitals [facility]10-23-2024 [facility] Nurse Note* Karen Serra MA - 07/12/2024 1:52 PM EDT Patient has no cardiac complaints today. Karen Serra CMA [facility]10-23-[facility]24 Nurse Note* Karen Serra MA - 07/12/2024 1:52 PM EDT Patient has no cardiac complaints today. Karen Pat LANDMAN documented in this encounterUniversity Hospitals Geauga [facility] Center10-22-2024 History of Present illness Narrative* Thierry Rush MD - 07/11/2024 1:30 PM EDT Images from the original note were not included. Thierry Rush [address] [facility] [address] [place] [address] Plastic Surgery New Office Note CC: Leg Pain HPI: Shilo is a 73 year old male with history of above knee amputation here today with leg pain. Hasbilateral phantom pain, right with more pain/phantom than left. Right is so painful unable to tolerate prosthetic. Constant. Worsens when resting. PAST MEDICAL HISTORY Diagnosis Date Aortoiliac occlusive disease (HCC) Atherosclerotic heart disease of mentasta coronary artery without angina pectoris Carotid artery occlusion Carotid artery stenosis Cerebrovascular accident (CVA) (HCC) Coronary arteriosclerosis [place] 1998 Depressive disorder Disc disorder of lumbar region Diverticulitis of colon Diverticulitis of colon Essential tremor Gastroesophageal reflux disease Generalized anxiety disorder Hiatal hernia History of myocardial infarction Hyperlipidemia Hypertension Intervertebral disc disorder of lumbar region with myelopathy Irritable bowel syndrome Myocardial infarction (HCC) Old myocardial infarction Peripheral vascular disease (HCC) PERS HX COLONIC POLYPS Preoperative testing 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 Sleep apnea SOB (shortness of breath) 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) Type 2 diabetes mellitus (HCC) PAST SURGICAL HISTORY Procedure Laterality Date AMPUTATION OF LOWER LEG Left 05/05/2022 Left above knee amputation AMPUTATION OF LOWER LEG Right 09/17/2023 Right above-knee amputation ANGIOPLASTY 1998, 2004, 2014 CAROTID ENDARTERECTOMY Bilateral right 02/2013, left 08/2001 COLONOSCOPY 05/26/2023 COLONOSCOPY FLX DX W/COLLJ SPEC WHEN PFRMD 2000 Colonoscopy with polypectomies COLONOSCOPY SCREENING 07/04/2021 tubular adenomas x5, severe diverticulosis ESOPHAGOGASTRODUODENOSCOPY TRANSORAL DIAGNOSTIC 2000 EGD reportedly normal EXPLORATION GROIN Left 04/29/2018 Left Groin Exploration, Thrombectomy of Left Limb of Axillo-Bifemoral Bypass, Revision of Left Femoral Anastomosis INSERT INTRACORONARY STENT 1998 RCA LAPAROSCOPY SURG CHOLECYSTECTOMY 1997 Cholecystectomy, lap LEFT HEART CATH,PERCUTANEOUS 1998 Cardiac cath, L heart PAST SURGICAL HISTORY OF Carotid stenosis PAST SURGICAL HISTORY OF Bilateral 12/25/2016 Axillo bifem bypass PAST SURGICAL HISTORY OF ureter removal STENT PLACEMENT 1998 BMS RCA STENT PLACEMENT 11/2013 MARVIN RCA FAMILY HISTORY Problem Relation Age of Onset Ischemic Heart Disease Father Cancer Father Coronary Artery Disease Father Breast Cancer Mother Social History Tobacco Use Smoking status: Former Current packs/day: 0.00 Types: Cigarettes Quit date: 03/06/1999 Years since quittin.3 Smokeless tobacco: Never Tobacco comments: Start date: 1969; Stop date: 1998 Vaping Use Vaping status: Never Used Substance Use Topics Alcohol use: No Comment: abstinent x 6 yrs Drug use: No Current Outpatient Medications Medication Sig insulin degludec (TRESIBA FLEXTOUCH U-100) 100 unit/mL (3 mL) injection pen Inject 25 Units subcutaneously daily at bedtime. lisinopril (ZESTRIL) 5 mg tablet Take 1 tablet by mouth once daily. gabapentin (NEURONTIN) 600 mg tablet Take 1 tablet by mouth four times daily for 90 days. metoprolol succinate ER (TOPROL XL) 25 mg 24 hr tablet Take 1 tablet by mouth once daily. spironolactone (ALDACTONE) 25 mg tablet Take 1 tablet by mouth once daily. amLODIPine (NORVASC) 5 mg tablet Take 1 tablet by mouth once daily. fenofibrate nanocrystallized (TRICOR) 145 mg tablet Take 1 tablet by mouth once daily. insulin lispro (HUMALOG KWIKPEN) 100 unit/mL INJECT 12 UNITS SUBCUTANEOUSLY THREE TIMES DAILY BEFORE MEALS - ADD 2 UNITS IF GLUCOSE IS OVER 250 escitalopram oxalate (LEXAPRO) 10 mg tablet Take 1 tablet by mouth once daily. rivaroxaban (XARELTO) 10 mg tablet Take 1 tablet by mouth once daily. Blood-Glucose Sensor ([employer] G7 SENSOR) katlyn 1 Each every 2 weeks. Patient is on insulin Blood-Glucose Meter,Continuous (DEXCOM G7 SERVICE BAR CASHIER) misc Check glucose throughout the day. Patient is on insulin rosuvastatin (CRESTOR) 20 mg tablet Take 1 tablet by mouth once daily. cyclobenzaprine (FLEXERIL) 5 mg tablet Take 1 tablet by mouth three times a day as needed. pantoprazole DR (PROTONIX) 40 mg tablet Take 1 tablet by mouth once daily. ascorbic acid, vitamin C, (VITAMIN C) 500 mg tablet Take 1 tablet by mouth two times a day. clopidogrel (PLAVIX) 75 mg tablet Take 1 tablet by mouth once daily. aspirin 81 mg chewable tablet Take 1 tablet by mouth once daily. UNIFINE PENTIPS PLUS 32 gauge x 5/32 Use for insulin pen injections 5 times daily, as directed. DX: E11.42, E11.65, Z79.4 ACETAMINOPHEN (TYLENOL ORAL) Take 1-2 tablets by mouth every 6 hours as needed. MULTIVIT &MINERALS/FERROUS FUM (MULTI VITAMIN ORAL) Take by mouth once daily. No current facility-administered medications for this visit. ALLERGIES Allergen Reactions Atorvastatin Myalgia Levofloxacin Unknown Metformin Diarrhea REVIEW OF SYSTEMS: ROS PHYSICAL EXAM: CONSTITUTIONAL: awake, alert, cooperative, no apparent distress, and appears stated age NEURO: Cranial nerves II-XII grossly intact. No signs of agitated mood. Bilateral aka - right >>> TTP compared to left. No obvious neuroma. Skin laxity with prominent bony prominence. Left less laxity. ASSESSMENT / PLAN: 73 year old y/o male with bilateral AKAs with significant right sided pain - appears to be combination of neuropathic and mechanical pain. Plan for below. Will perform right first and potentially left based off results. During this patient visit I have spent approximately 30 minutes out of 45 in counseling regarding treatment options and coordinating care. The patient is seen and examined by Dr. Rush and the following reflects his/her service. Scribed by Lyn Robin MA New Procedure Information Procedure: right lower extremity targeted muscle reinnervation, regenerative peripheral nerve interface, muscle graft harvest, myodesis with bone anchors, ATT OR Time Needed: 4 hrs [place] or ASC:[facility] Equipment Request: rapid fire small/medium clips, plastics set, 2-0 vicryl un- dyed and PDS, 3-0/4-0monocryl, prevena small, exparel/marcaine mix, kerlix x2, 4 and 6 tila, checkpoint, axogen nerve wraps available, ioban, 6-0 prolene, micro instruments SA Requested: Yes Anesthesia: General - supine then prone, no paralysis when prone Post op appointment: 2,5,10 Inpatient stay: possible Block Needed: No Pre Testing Needed: yes Occupational Therapy: No Cosmetic: No I agree with the Chief Complaint, ROS, and Past Histories independently gathered by the clinical desktop support engineer and the remaining scribed note accurately describes my personal service to the patient. documented in this encounterUniversity Hospitals Geauga Medical Center10-22-2024 [facility]10-22-2024 Miscellaneous Notes* Telephone Encounter - Mellisa Pickett LPN - 07/11/2024 8:53 AM EDT Faxed request to medical records. * Telephone Encounter - Loan Shay - 07/11/2024 8:46 AM EDT [facility] Caller Name: Jessica Call Back Number [phone] Reason for Call: Release of recent H&O Additional Information: Jessica from [facility] is calling to request the most recent H&P to be faxed to them for use in offering virtual service for patient. documented in this encounterUniversity Hospitals Geaug[facility] Center10-22-2024 Telephone encounter Note * Telephone Encounter - Mellisa Pickett LPN - 07/11/2024 8:53 AM EDT Faxed request to medical records. [facility]24 Telephone encounter Note* Telephone Encounter - Loan Shay - 07/11/2024 8:46 AM EDT [facility] Caller Name: Jessica Call Back Number [phone] Reason for Call: Release of recent H&O Additional Information: Jessica from [facility] is calling to request the most recent H&P to be faxed to them for use in offering virtual service for patient. [facility] Work Phone: [phone] 494-800810-21-2024 Telephone encounter Note* Telephone Encounter - Minoo Boone LPN - 07/10/2024 3:05 PM EDT Prescription Refill Information The patient has been identified by name and date of : Yes Caregiver verified no other encounters exist for this prescription request: Yes Caregiver confirmed with patient/requestor that no other refills are due, in the near future, with this provider at this time: Yes The last office visit in the department: 06/27/2024 Does the patient have a future office visit with this provider/department: Yes 07/25/2024 Requested Prescriptions Pending Prescriptions Disp Refills TRESIBA FLEXTOUCH U-100 100 unit/mL (3 mL) injection pen [Pharmacy Med Name: Tresiba FlexTouch 100 UNIT/ML Subcutaneous Solution Pen-injector] 15 mL 0 Sig: INJECT 20 UNITS SUBCUTANEOUSLY ONCE DAILY AT BEDTIME Minoo Boone LPN July 10, 2024 3:05 PM [facility] [facility] Miscellaneous Notes* Telephone Encounter - Minoo Boone LPN - 07/10/2024 3:05 PM EDT Prescription Refill Information The patient has been identified by name and date of : Yes Caregiver verified no other encounters exist for this prescription request: Yes Caregiver confirmed with patient/requestor that no other refills are due, in the near future, with this provider at this time: Yes The last office visit in the department: 06/27/2024 Does the patient have a future office visit with this provider/department: Yes 07/25/2024 Requested Prescriptions Pending Prescriptions Disp Refills TRESIBA FLEXTOUCH U-100 100 unit/mL (3 mL) injection pen [Pharmacy Med Name: Tresiba FlexTouch 100 UNIT/ML Subcutaneous Solution Pen-injector] 15 mL 0 Sig: INJECT 20 UNITS SUBCUTANEOUSLY ONCE DAILY AT BEDTIME Minoo Boone LPN July 10, 2024 3:05 PM documented in this encounterUniversity Hospitals [facility]10-15-2024 Telephone encounter Note * Telephone Encounter - Mellisa Pickett LPN - 07/04/2024 9:27 AM EDT Received orders from [facility]. Placed in provider's inbox for review. Route to [place] fax [facility]10-15-[facility]24 Miscellaneous Notes* Telephone Encounter - Mellisa Pickett LPN - 07/04/2024 9:27 AM EDT Received orders from [facility]. Placed in provider's inbox for review. Route to [place] fax documented in this encounterUniversity Hospitals Geaug[facility] Center10-11-2024 Telephone encounter Note * Telephone Encounter - Minoo Boone LPN - 06/30/2024 3:21 PM EDT Faxed. Confirmation received. [facility]10-11-2024 Miscellaneous Notes* Telephone Encounter - Minoo Boone LPN - 06/30/2024 3:21 PM EDT Faxed. Confirmation received. documented in this encounterUniversity Hospitals Geauga [facility] Center10-08-2024 NoteProm[facility] History of Present illness Narrative* Lyubov Hernandez APRN.PARK ACTIVITIES COORDINATOR - 06/27/2024 1:44 PM EDT This note was created using Digitwhizriter. Subjective Shilo Hathaway is a 73 year old male. Patient here for 3 month follow-up. Started physical therapy yesterday to work with his 2 new prosthetics. Will meet twice per week for20 weeks. Still having stump pain on the right side. Seeing plastic surgeon on 07/11. Gabapentin makes him loopy, like he's in a daze. Helps more with the phantom pain vs the stump pain. Difficultysleeping due to the pain. DMII: thinks he's gaining weight but unable to get on the scale to check, feels like he's gaining in abdomen. Doesn't eat very healthy, easy to prepare foods, not regular meals. Blood sugars are running high, highest 250, lowest 120. Had one low of 45 when he didn't eat enough to cover his insulin.Did not bring Dexcom meter today for provider to review. Is taking long acting insulin 20 units at bedtime, 12 units with meals and additional 2 units if blood sugar>250. The history is provided by the patient. Review of Systems Respiratory: Negative for shortness of breath. Cardiovascular: Negative for chest pain. Gastrointestinal: Negative for abdominal pain. Musculoskeletal: Positive for arthralgias, back pain and myalgias. PAST MEDICAL HISTORY Diagnosis Date Aortoiliac occlusive disease (HCC) Atherosclerotic heart disease of mentasta coronary artery without angina pectoris Carotid artery occlusion Carotid artery stenosis Cerebrovascular accident (CVA) (HCC) Coronary arteriosclerosis [place] 1998 Depressive disorder Disc disorder of lumbar region Diverticulitis of colon Diverticulitis of colon Essential tremor Gastroesophageal reflux disease Generalized anxiety disorder Hiatal hernia History of myocardial infarction Hyperlipidemia Hypertension Intervertebral disc disorder of lumbar region with myelopathy Irritable bowel syndrome Myocardial infarction (HCC) Old myocardial infarction Peripheral vascular disease (HCC) PERS HX COLONIC POLYPS Preoperative testing 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 Sleep apnea SOB (shortness of breath) 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) Type 2 diabetes mellitus (HCC) PAST SURGICAL HISTORY Procedure Laterality Date AMPUTATION OF LOWER LEG Left 05/05/2022 Left above knee amputation AMPUTATION OF LOWER LEG Right 09/17/2023 Right above-knee amputation ANGIOPLASTY 1998, 2004, 2013 CAROTID ENDARTERECTOMY Bilateral right 02/2013, left 08/2001 COLONOSCOPY 05/26/2023 COLONOSCOPY FLX DX W/COLLJ SPEC WHEN PFRMD 2000 Colonoscopy with polypectomies COLONOSCOPY SCREENING 07/04/2021 tubular adenomas x5, severe diverticulosis ESOPHAGOGASTRODUODENOSCOPY TRANSORAL DIAGNOSTIC 2000 EGD reportedly normal EXPLORATION GROIN Left 04/29/2018 Left Groin Exploration, Thrombectomy of Left Limb of Axillo-Bifemoral Bypass, Revision of Left Femoral Anastomosis INSERT INTRACORONARY STENT 1998 RCA LAPAROSCOPY SURG CHOLECYSTECTOMY 1997 Cholecystectomy, lap LEFT HEART CATH,PERCUTANEOUS 1998 Cardiac cath, L heart PAST SURGICAL HISTORY OF Carotid stenosis PAST SURGICAL HISTORY OF Bilateral 12/25/2016 Axillo bifem bypass PAST SURGICAL HISTORY OF ureter removal STENT PLACEMENT 1998 BMS RCA STENT PLACEMENT 11/2013 MARVIN RCA ALLERGIES Atorvastatin, Levofloxacin, and Metformin MEDICATIONS lisinopril (ZESTRIL) 5 mg tablet Take 1 tablet by mouth once daily. gabapentin (NEURONTIN) 600 mg tablet Take 1 tablet by mouth four times daily for 90 days. metoprolol succinate ER (TOPROL XL) 25 mg 24 hr tablet Take 1 tablet by mouth once daily. spironolactone (ALDACTONE) 25 mg tablet Take 1 tablet by mouth once daily. amLODIPine (NORVASC) 5 mg tablet Take 1 tablet by mouth once daily. fenofibrate nanocrystallized (TRICOR) 145 mg tablet Take 1 tablet by mouth once daily. insulin lispro (HUMALOG KWIKPEN) 100 unit/mL INJECT 12 UNITS SUBCUTANEOUSLY THREE TIMES DAILY BEFORE MEALS - ADD 2 UNITS IF GLUCOSE IS OVER 250 escitalopram oxalate (LEXAPRO) 10 mg tablet Take 1 tablet by mouth once daily. rivaroxaban (XARELTO) 10 mg tablet Take 1 tablet by mouth once daily. Blood-Glucose Sensor (DEXCOM G7 SENSOR) katlyn 1 Each every 2 weeks. Patient is on insulin Blood-Glucose Meter,Continuous (DEXCOM G7 SERVICE BAR CASHIER) misc Check glucose throughout the day. Patient is on insulin rosuvastatin (CRESTOR) 20 mg tablet Take 1 tablet by mouth once daily. cyclobenzaprine (FLEXERIL) 5 mg tablet Take 1 tablet by mouth three times a day as needed. pantoprazole DR (PROTONIX) 40 mg tablet Take 1 tablet by mouth once daily. ascorbic acid, vitamin C, (VITAMIN C) 500 mg tablet Take 1 tablet by mouth two times a day. clopidogrel (PLAVIX) 75 mg tablet Take 1 tablet by mouth once daily. aspirin 81 mg chewable tablet Take 1 tablet by mouth once daily. UNIFINE PENTIPS PLUS 32 gauge x /32 Use for insulin pen injections 5 times daily, as directed. DX: E11.42, E11.65, Z79.4 ACETAMINOPHEN (TYLENOL ORAL) Take 1-2 tablets by mouth every 6 hours as needed. MULTIVIT &MINERALS/FERROUS FUM (MULTI VITAMIN ORAL) Take by mouth once daily. insulin degludec (TRESIBA FLEXTOUCH U-100) 100 unit/mL (3 mL) injection pen Inject 25 Units subcutaneously daily at bedtime. FAMILY HISTORY Problem Relation Age of Onset Ischemic Heart Disease Father Cancer Father Coronary Artery Disease Father Breast Cancer Mother Social History Tobacco Use Smoking status: Former Current packs/day: 0.00 Types: Cigarettes Quit date: 03/06/1999 Years since quittin.3 Smokeless tobacco: Never Tobacco comments: Start date: 1969; Stop date: 1998 Vaping Use Vaping status: Never Used Substance Use Topics Alcohol use: No Comment: abstinent x 6 yrs Drug use: No Objective BP 124/65 Pulse 68 Physical Exam Vitals and nursing note reviewed. Constitutional: Appearance: He is well-developed. He is not ill-appearing. Cardiovascular: Rate and Rhythm: Normal rate and regular rhythm. Heart sounds: Normal heart sounds. Pulmonary: Effort: Pulmonary effort is normal. Breath sounds: Normal breath sounds. Musculoskeletal: Right Lower Extremity: Right leg is amputated above knee. Left Lower Extremity: Left leg is amputated above knee. Skin: General: Skin is warm and dry. Neurological: Mental Status: He is alert and oriented to person, place, and time. Psychiatric: Mood and Affect: Mood normal. Assessment and Plan 1. Type 2 diabetes mellitus with diabetic peripheral angiopathy without gangrene, with long-term current use of insulin (HCC) A1C worsening. Increase Tresiba to 25 units at bedtime, continue short acting as previous. Bring Dexcom meter in 1 month for provider to review. - HB A1C B/O - insulin degludec (TRESIBA FLEXTOUCH U-100) 100 unit/mL (3 mL) injection pen; Inject 25 Units subcutaneously daily at bedtime. Dispense: 9 mL; Refill: 0 - HEMOGLOBIN A1C (POC) 2. Encounter for immunization - INFLUENZA VACCINE, PRSV FREE, AGE 65+ YR, HIGH DOSE, TRIVALENT (FLUZONE HIGH-DOSE) - PFIZER-BIONTECH COVID-19 VACCINE AGE 12+ YR (COMIRNATY) Lyubov Hernandez APRN.CNP documented in this encounterUniversity Hospitals Ge[facility]09-30-2024 Telephone encounter Note * Telephone Encounter - Minoo Boone LPN - 06/19/2024 4:14 PM EDT Fax [phone] [facility]09-30-2024 Miscellaneous Notes* Telephone Encounter - Minoo Boone LPN - 06/19/2024 4:14 PM EDT Fax [phone] documented in this encounterUniversity Hospitals Geauga Medical Center09-24-2024 NoteHNO ID: [id number] Author: LYUBOV HERNANDEZ APRN.NATHALY Service: ? Author Type: Nurse Practitioner Type: Progress Notes Filed: 06/13/2024 10:52 Note Text: Lisinopril sent to pharmacy Lyubov Hernandez APRN.CNPPromedica Defiance [facility] Hospital09-18-2024 Telephone encounter Note* Telephone Encounter - Mellisa Pickett LPN - 06/07/2024 2:34 PM EDT Office notes faxed. [facility]09-18-2024 Miscellaneous Notes* Telephone Encounter - Mellisa Pickett LPN - 06/07/2024 2:34 PM EDT Office notes faxed. * Telephone Encounter - [place] Corrina Diego - 06/07/2024 2:01 PM EDT Shilo is a patient of MD adam Hall, [employer] Rep from [facility] called to request the most recent office visit notes are faxed to her. Please fax to: [phone] Patient has been identified by name and birthdate. Duration of symptoms: N/A Person calling: [facility] Was an appointment scheduled: No Closing statement: Results or non-symptom based questions: Thank you for calling [facility], your call will be returned within the next business day. Corrina Diego documented in this encounterUniversity Hospitals Geaug[facility] Center09-18-2024 Telephone encounter Note * Telephone Encounter - Corrina Cortes - 06/07/2024 2:01 PM EDT Shilo is a patient of MD adam Hall Graciela, [employer] Rep from [facility] called to request the most recent office visit notes are faxed to her. Please fax to: [phone] Patient has been identified by name and birthdate. Duration of symptoms: N/A Person calling: [facility] Was an appointment scheduled: No Closing statement: Results or non-symptom based questions: Thank you for calling [facility], your call will be returned within the next business day. Corrina Jensen Pss [facility]09-18-2024 NotePromedica Defiance [facility]09-18-2024 History of Present illness Narrative* Ronna Leger RN - 06/07/2024 12:38 PM EDT ACM DRAKE RN Reason for review or outreach: Medication Adherence review per request of [facility] Medication Adherence Review Details: Cholesterol and Hypertension FYI / ACTION REQUEST: Patient identified by name and date of Summary/Findings of review: Rosuvastatin was due for a refill on 01/19/24 at [facility] Lisinopril was due for a refill 05/12/24 at [facility] Patient Attributed To: QAE Payer: [facility] Action Taken: Data submitted to [facility] [employer] message to patient Other Contact made with patient: No, Chart review only. Signature: Ronna Leger, RN documented in this encounterUniversity Hospitals Geauga [facility] Center09-18-2024 Telephone encounter Note * Telephone Encounter - Lyubov Prado APRN.CNP - 06/07/2024 10:02 AM EDT Please fax paperwork, placed in outbox Lyubov Prado APRN.CNP [facility]09-18-2024 Miscellaneous Notes* Telephone Encounter - Lyubov Prado APRN.CNP - 06/07/2024 10:02 AM EDT Please fax paperwork, placed in outbox Lyubov Prado APRN.CNP documented in this encounterUniversity Hospitals Geaug[facility] Center09-17-2024 Telephone encounter Note * Telephone Encounter - Deann Rasheed - 06/06/2024 3:41 PM EDT I have sent the referral to Plastic Surgery via the portal with a confirmation of [id number] [facility]09-17-2024 Miscellaneous Notes* Telephone Encounter - Deann Rasheed - 06/06/2024 3:41 PM EDT I have sent the referral to Plastic Surgery via the portal with a confirmation of [id number] documented in this encounterUniversity Hospitals Geauga Medical Center09-17-2024 [facility]09-17-2024 History of Present illness Narrative* Elizabeth Ball APRN.CNP - 06/06/2024 3:30 PM EDT Shilo Hathaway 73 year old male here for follow-up Carotid Stenosis & PAD He has undergone the following procedure: - Attempted ABF -- 2016 DJW - R Ax- fem / R fem- L fem bypass with B DRESS FINISHER endart -- 2016 DJW - L groin exploration, LLE graft thrombectomy -- 2016 JZ - L groin exploration with thrombectomy of fem-fem bypass -- 2017 DJW - L ax- profunda to R profunda bypass w/ redo groins -- 2021 LM - L AKA -- 2021 CB - R AKA -- 2022 LM - L CEA -- 2000 DJW - R CEA -- 2012 DJW SUBJECTIVE: Mr. Hathaway returns to the office for routine follow-up of his carotid stenosis & PAD. Shilo underwent bilateral carotid endarterectomy with bovine patch angioplasty by Dr. Robin: L CEA in 2000 & R CEA in 2012. He remains asymptomatic, with no s/s of TIA or stroke, including amaurosis fugax, slurred speech, facial drooping, or weakness in an extremity. Additionally, Shilo is now s/p B AKA, with his R amputation done just before last [place]. He had been working with [employer] on his prosthetic since his L AKA, but was having a very difficult time so he switched to [employer]. He's had very good success with [employer] and is very pleased with their care overall. He does have prosthetics for both legs and has an order to get started with PT. Reports some ongoing severe pain with his R AKA stump however. It is intermittent and pretty unpredictable. Can be quite severe, to the point where he will yell out. Describes as a dull ache to more severe sharp pain at times. Has had to take some left over narcotic pain pills occasionally to help calm it down. It is quite different from his phantom pain, which he does get in both legs pretty regularly as well. On asa, plavix, xarelto, statin. +CAD, HLD, HTN, [place] (1998), DM, Carotid ASO Former smoker - quit in 1998. TESTING: Carotid US done 05/24/2024, results: R ICA <50% psv 97, L ICA 50% psv 94 PAST MEDICAL HISTORY Diagnosis Date Aortoiliac occlusive disease (HCC) Atherosclerotic heart disease of mentasta coronary artery without angina pectoris Carotid artery occlusion Carotid artery stenosis Cerebrovascular accident (CVA) ([facility]) Coronary arteriosclerosis [place] 1998 Depressive disorder Disc disorder of lumbar region Diverticulitis of colon Diverticulitis of colon Essential tremor Gastroesophageal reflux disease Generalized anxiety disorder Hiatal hernia History of myocardial infarction Hyperlipidemia Hypertension Intervertebral disc disorder of lumbar region with myelopathy Irritable bowel syndrome Myocardial infarction (HCC) Old myocardial infarction Peripheral vascular disease ([facility]) PERS HX COLONIC POLYPS Preoperative testing 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 Sleep apnea SOB (shortness of breath) Thrombosis of right femoral-femoral bypass graft ([facility]) Type 2 diabetes mellitus ([facility]) PAST SURGICAL HISTORY Procedure Laterality Date AMPUTATION OF LOWER LEG Left 05/05/2022 Left above knee amputation AMPUTATION OF LOWER LEG Right 09/17/2023 Right above-knee amputation ANGIOPLASTY 1998, 2004, 2013 CAROTID ENDARTERECTOMY Bilateral right 02/2013, left 08/2001 COLONOSCOPY 05/26/2023 COLONOSCOPY FLX DX W/COLLJ SPEC WHEN PFRMD 2000 Colonoscopy with polypectomies COLONOSCOPY SCREENING 07/04/2021 tubular adenomas x5, severe diverticulosis ESOPHAGOGASTRODUODENOSCOPY TRANSORAL DIAGNOSTIC 2000 EGD reportedly normal EXPLORATION GROIN Left 04/29/2018 Left Groin Exploration, Thrombectomy of Left Limb of Axillo-Bifemoral Bypass, Revision of Left Femoral Anastomosis INSERT INTRACORONARY STENT 1998 RCA LAPAROSCOPY SURG CHOLECYSTECTOMY 1997 Cholecystectomy, lap LEFT HEART CATH,PERCUTANEOUS 1998 Cardiac cath, L heart PAST SURGICAL HISTORY OF Carotid stenosis PAST SURGICAL HISTORY OF Bilateral 12/25/2016 Axillo bifem bypass PAST SURGICAL HISTORY OF ureter removal STENT PLACEMENT 1998 BMS RCA STENT PLACEMENT 11/2013 MARVIN RCA Current Outpatient Medications on File Prior to Visit Medication Sig gabapentin (NEURONTIN) 600 mg tablet Take 1 tablet by mouth four times daily for 90 days. metoprolol succinate ER (TOPROL XL) 25 mg 24 hr tablet Take 1 tablet by mouth once daily. spironolactone (ALDACTONE) 25 mg tablet Take 1 tablet by mouth once daily. insulin degludec (TRESIBA FLEXTOUCH U-100) 100 unit/mL (3 mL) injection pen Inject 20 Units subcutaneously daily at bedtime. amLODIPine (NORVASC) 5 mg tablet Take 1 tablet by mouth once daily. fenofibrate nanocrystallized (TRICOR) 145 mg tablet Take 1 tablet by mouth once daily. insulin lispro (HUMALOG KWIKPEN) 100 unit/mL INJECT 12 UNITS SUBCUTANEOUSLY THREE TIMES DAILY BEFORE MEALS - ADD 2 UNITS IF GLUCOSE IS OVER 250 escitalopram oxalate (LEXAPRO) 10 mg tablet Take 1 tablet by mouth once daily. rivaroxaban (XARELTO) 10 mg tablet Take 1 tablet by mouth once daily. Blood-Glucose Sensor (DEXCOM G7 SENSOR) katlyn 1 Each every 2 weeks. Patient is on insulin Blood-Glucose Meter,Continuous (DEXCOM G7 SERVICE BAR CASHIER) misc Check glucose throughout the day. Patient is on insulin rosuvastatin (CRESTOR) 20 mg tablet Take 1 tablet by mouth once daily. cyclobenzaprine (FLEXERIL) 5 mg tablet Take 1 tablet by mouth three times a day as needed. ascorbic acid, vitamin C, (VITAMIN C) 500 mg tablet Take 1 tablet by mouth two times a day. clopidogrel (PLAVIX) 75 mg tablet Take 1 tablet by mouth once daily. aspirin 81 mg chewable tablet Take 1 tablet by mouth once daily. UNIFINE PENTIPS PLUS 32 gauge x 5/32 Use for insulin pen injections 5 times daily, as directed. DX: E11.42, E11.65, Z79.4 ACETAMINOPHEN (TYLENOL ORAL) Take 1-2 tablets by mouth every 6 hours as needed. MULTIVIT &MINERALS/FERROUS FUM (MULTI VITAMIN ORAL) Take by mouth once daily. lisinopril (ZESTRIL) 5 mg tablet Take 1 tablet by mouth once daily. pantoprazole DR (PROTONIX) 40 mg tablet Take 1 tablet by mouth once daily. No current facility-administered medications on file prior to visit. ALLERGIES Allergen Reactions Atorvastatin Myalgia Levofloxacin Unknown Metformin Diarrhea VITAL SIGNS: BP 142/60 (BP Site: Left Arm, BP Position: Sitting, BP Cuff Size: Extra Large Adult) Pulse 82 SpO2 96% PHYSICAL EXAM: General Appearance: Well appearing, alert, in no acute distress, well-hydrated, well nourished. Skin: Skin color, texture, turgor normal, no suspicious rashes. Head: Normocephalic, no masses, lesions, tenderness or abnormalities. Eyes: Anicteric sclera. Extraocular movements are intact. Ears: External ears normal, hearing is adequate. Neck: Supple, no bruits. Lungs: Breathing is easy and unlabored. Heart: RRR without gallop or rub. Extremities: No deformities, edema, skin discoloration, clubbing or cyanosis. B AKA. Neurologic: Gait not observed - did not wear prosthetics. Normal cognition and motor skills. ASSESSMENT/PLAN: (I65.23) Carotid stenosis, asymptomatic, bilateral (primary encounter diagnosis) (Z98.890) History of bilateral carotid endarterectomy Comment: Asymptomatic and stable with patent B CEA and no progression of stenosis noted on current US as discussed Plan: Repeat carotid US in 1 year (Z89.611, Z89.612) History of above-knee amputation of both lower extremities (HCC) (T87.89, M79.609) Amputation stump pain (HCC) (HCC) (I74.09) Aortoiliac occlusive disease (HCC) Comment: Discussed ongoing R AKA stump pain; Shilo is very in-tune with his body and does understandthe difference between phantom pain and otherwise, and so with this ongoing stump pain, will have pt follow-up with Plastics to see if there is any intervention to help with this; Also discussed his prosthetics and pt is VERY happy with [employer]! Plan: CONSULT TO PLASTIC SURGERY- Dr. Rush FOLLOW-UP: Shilo will follow-up in 1 year with repeat carotid US - sooner if needed. He is encouraged to call with any questions or concerns in the meantime. The patient is currently taking a statin: Yes The patient is currently taking aspirin: Yes I spent 30 minutes in the visit, with more than 50% of the total [id number] time of the visit in counseling / coordination of care. Elizabeth Ball APRN.PARK ACTIVITIES COORDINATOR documented in this encounterUniversity Hospitals Geauga Medical Center09-04-2024 History of Present illness Narrative* Zaynab Candelario, RT(R) - 05/24/2024 10:15 AM EDT Radiology Service Progress Note PATIENT NAME: Shilo Hathaway DATE OF SERVICE: May 24, 2024 TIME: 10:23 AM PATIENT IDENTITY VERIFICATION COMPLETED USING TWO (2) IDENTIFIERS: Name and Date of confirmedby patient verbally. FALL SCREENING: Has the patient had 2 falls in the last year or 1 fall with injury or currently using an Ambulatory Assistive Device (Walker, Cane, Wheelchair, Crutches, etc.)? Yes, Patient High Riskfor Falls What interventions were put in place to prevent falls during this visit? Increased Observations by Caregivers PATIENT GENDER DATA: Male PATIENT RELEVANT IMPLANT DATA REVIEWED: Not Applicable PATIENT PRESENTS WITH AN IMPLANTABLE OR ATTACHED .NET ARCHITECT: No RADIOLOGY DEPARTMENT: Ultrasound PERIPHERAL IV DATA: Not applicable SIGNED BY: RT Karie(R) May 24, 2024 10:23 AM documented in this encounterUniversity Hospitals Geauga Medical Center09-04-2024 [facility]07-31-2024 Telephone encounter Note* Telephone Encounter - Savana Teran RN - 04/19/2024 1:47 PM EDT Discussed with patient-he agrees to plan. Will also watch diet for high K+ foods. Savana Teran RN [facility]07-31-2024 Miscellaneous Notes* Telephone Encounter - Savana Teran RN - 04/19/2024 1:47 PM EDT Discussed with patient-he agrees to plan. Will also watch diet for high K+ foods. Savana Teran RN * Telephone Encounter - Lyubov Prado APRN.CNP - 04/19/2024 1:38 PM EDT Let patient know that his potassium was elevated and I'd like him to have it rechecked in one week,will that be a problem for him to get to the lab? Lyubov Prado APRN.CNP documented in this encounterUniversity Hospitals Geauga Medical Center07-31-2024 Telephone encounter Note * Telephone Encounter - Lyubov Prado APRN.CNP - 04/19/2024 1:38 PM EDT Let patient know that his potassium was elevated and I'd like him to have it rechecked in one week,will that be a problem for him to get to the lab? Lyubov Prado APRN.CNP [facility]07-23-2024 Telephone encounter Note* Telephone Encounter - Jessica Duff - 04/11/2024 11:59 AM EDT Changed appointment time [facility]07-23-2024 Miscellaneous Notes* Telephone Encounter - Jessica Duff - 04/11/2024 11:59 AM EDT Changed appointment time * Telephone Encounter - Lyubov Prado APRN.CNP - 04/11/2024 11:45 AM EDT Please change patient's appointment on 06/27 to 40 minute established well for Medicare Wellness exam Lyubov Prado APRN.CNP documented in this encounterUniversity Hospitals Geauga [facility] Center07-23-2024 Telephone encounter Note * Telephone Encounter - Lyubov Prado APRN.CNP - 04/11/2024 11:45 AM EDT Please change patient's appointment on 06/27 to 40 minute established well for Medicare Wellness exam Lyubov Prado APRN.CNP [facility]07-08-2024 History of Present illness Narrative* Lyubov Prado APRN.CNP - 03/27/2024 1:33 PM EDT This note was created using Digitwhizriter. Subjective Shilo Hathaway is a 73 year old male. Patient is here for 6 month follow-up, last saw PCP in September 2023. DMII: highest 175 lately. Wearing CGM. Nothing over 200. No low blood sugars. Patient is microwaving food right now, diet is limited as his is in a rehab facility for a broken hip. Diet is poor. History of heart attacks, heart failure. Currently asymptomatic. Can't remember the last time he saw a ball truing machine operator outpatient, just in the hospital. History of chronic back pain, improved since he no longer stands (wheelchair bound). Was supposed to get fitted for double leg prosthetics, but that has been pushed back due to his 's medical issues. Follows with vascular for PAD The history is provided by the patient. Review of Systems Respiratory: Negative for shortness of breath. Cardiovascular: Negative for chest pain. Musculoskeletal: Positive for arthralgias, back pain and myalgias. Allergic/Immunologic: Positive for immunocompromised state. PAST MEDICAL HISTORY Diagnosis Date Aortoiliac occlusive disease (HCC) Atherosclerotic heart disease of [place] coronary artery without angina pectoris Carotid artery occlusion Carotid artery stenosis Cerebrovascular accident (CVA) (HCC) Coronary arteriosclerosis [place] 1998 Depressive disorder Disc disorder of lumbar region Diverticulitis of colon Diverticulitis of colon Essential tremor Gastroesophageal reflux disease Generalized anxiety disorder Hiatal hernia History of myocardial infarction Hyperlipidemia Hypertension Intervertebral disc disorder of lumbar region with myelopathy Irritable bowel syndrome Myocardial infarction (HCC) Old myocardial infarction Peripheral vascular disease (HCC) PERS HX COLONIC POLYPS Preoperative testing 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 Sleep apnea SOB (shortness of breath) 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) Type 2 diabetes mellitus (HCC) PAST SURGICAL HISTORY Procedure Laterality Date AMPUTATION OF LOWER LEG Left 05/05/2022 Left above knee amputation AMPUTATION OF LOWER LEG Right 09/17/2023 Right above-knee amputation ANGIOPLASTY 1998, 2005, 2014 CAROTID ENDARTERECTOMY Bilateral right 02/2013, left 08/2001 COLONOSCOPY 05/26/2023 COLONOSCOPY FLX DX W/COLLJ SPEC WHEN PFRMD 2000 Colonoscopy with polypectomies COLONOSCOPY SCREENING 07/04/2021 tubular adenomas x5, severe diverticulosis ESOPHAGOGASTRODUODENOSCOPY TRANSORAL DIAGNOSTIC 2000 EGD reportedly normal EXPLORATION GROIN Left 04/29/2018 Left Groin Exploration, Thrombectomy of Left Limb of Axillo-Bifemoral Bypass, Revision of Left Femoral Anastomosis INSERT INTRACORONARY STENT 1998 RCA LAPAROSCOPY SURG CHOLECYSTECTOMY 1997 Cholecystectomy, lap LEFT HEART CATH,PERCUTANEOUS 1998 Cardiac cath, L heart PAST SURGICAL HISTORY OF Carotid stenosis PAST SURGICAL HISTORY OF Bilateral 12/25/2016 Axillo bifem bypass PAST SURGICAL HISTORY OF ureter removal STENT PLACEMENT 1998 BMS RCA STENT PLACEMENT 11/2013 MARVIN RCA ALLERGIES Atorvastatin, Levofloxacin, and Metformin MEDICATIONS amLODIPine (NORVASC) 5 mg tablet Take 1 tablet by mouth once daily. fenofibrate nanocrystallized (TRICOR) 145 mg tablet Take 1 tablet by mouth once daily. insulin lispro (HUMALOG KWIKPEN) 100 unit/mL INJECT 12 UNITS SUBCUTANEOUSLY THREE TIMES DAILY BEFORE MEALS - ADD 2 UNITS IF GLUCOSE IS OVER 250 escitalopram oxalate (LEXAPRO) 10 mg tablet Take 1 tablet by mouth once daily. rivaroxaban (XARELTO) 10 mg tablet Take 1 tablet by mouth once daily. tamsulosin (FLOMAX) 0.4 mg Take 1 capsule by mouth once daily. Blood-Glucose Sensor (DEXEasy Eye G7 SENSOR) katlyn 1 Each every 2 weeks. Patient is on insulin Blood-Glucose Meter,Continuous (DEXCOM G7 SERVICE BAR CASHIER) misc Check glucose throughout the day. Patient is on insulin rosuvastatin (CRESTOR) 20 mg tablet Take 1 tablet by mouth once daily. cyclobenzaprine (FLEXERIL) 5 mg tablet Take 1 tablet by mouth three times a day as needed. lisinopril (ZESTRIL) 5 mg tablet Take 1 tablet by mouth once daily. pantoprazole DR (PROTONIX) 40 mg tablet Take 1 tablet by mouth once daily. ascorbic acid, vitamin C, (VITAMIN C) 500 mg tablet Take 1 tablet by mouth two times a day. clopidogrel (PLAVIX) 75 mg tablet Take 1 tablet by mouth once daily. aspirin 81 mg chewable tablet Take 1 tablet by mouth once daily. TRUE METRIX GLUCOSE TEST STRIP test strip Use to test glucose 4 times daily, as directed. DX: E11.42, E11.65, Z79.4 UNIFINE PENTIPS PLUS 32 gauge x /32 Use for insulin pen injections 5 times daily, as directed. DX: E11.42, E11.65, Z79.4 lancets (UNILET SUPER THIN LANCETS) 30 gauge Use to test glucose 4 times daily, as directed. DX: E11.42, E11.65, Z79.4 ACETAMINOPHEN (TYLENOL ORAL) Take 1-2 tablets by mouth every 6 hours as needed. MULTIVIT &MINERALS/FERROUS FUM (MULTI VITAMIN ORAL) Take by mouth once daily. gabapentin (NEURONTIN) 600 mg tablet Take 1 tablet by mouth four times daily for 90 days. metoprolol succinate ER (TOPROL XL) 25 mg 24 hr tablet Take 1 tablet by mouth once daily. spironolactone (ALDACTONE) 25 mg tablet Take 1 tablet by mouth once daily. insulin degludec (TRESIBA FLEXTOUCH U-100) 100 unit/mL (3 mL) injection pen Inject 20 Units subcutaneously daily at bedtime. FAMILY HISTORY Problem Relation Age of Onset Ischemic Heart Disease Father Cancer Father Coronary Artery Disease Father Breast Cancer Mother Social History Tobacco Use Smoking status: Former Types: Cigarettes Quit date: 03/06/1999 Years since quittin.0 Smokeless tobacco: Never Tobacco comments: Start date: 1969; Stop date: 1998 Vaping Use Vaping Use: Never used Substance Use Topics Alcohol use: No Comment: abstinent x 6 yrs Drug use: No Objective BP 134/78 Pulse 65 Physical Exam Vitals and nursing note reviewed. Constitutional: Appearance: He is well-developed. Pulmonary: Effort: Pulmonary effort is normal. Musculoskeletal: Right Lower Extremity: Right leg is amputated above knee. Left Lower Extremity: Left leg is amputated above knee. Skin: General: Skin is warm and dry. Neurological: Mental Status: He is alert and oriented to person, place, and time. Assessment and Plan 1. Type 2 diabetes mellitus with diabetic peripheral angiopathy without gangrene, with long-term current use of insulin ([facility]) Stable, above goal. Work on diet, continue current medications. - HB A1C B/O - BASIC METABOLIC PANEL; Future 2. Spinal stenosis of lumbar region with neurogenic claudication Improved since wheelchair bound. Stable on gabapentin, which also helps the phantom limb pain too. - gabapentin (NEURONTIN) 600 mg tablet; Take 1 tablet by mouth four times daily for 90 days. Dispense: 120 tablet; Refill: 2 3. PAD (peripheral artery disease) ([facility]) Stable, follows with vascular. 4. Status post above-knee amputation of both lower extremities ([facility]) Working with [employer] to get bilateral prosthetics. 5. HFrEF (heart failure with reduced ejection fraction) ([facility]) No recent outpatient cardiology follow-up, recommend to re-establish care. - CONSULT TO CARDIOLOGY; Future 6. Coronary arteriosclerosis - CONSULT TO CARDIOLOGY; Future Lyubov Prado APRN.CNP documented in this encounterUniversity [facility]als [facility]06-28-2024 Telephone encounter Note * Telephone Encounter - Archana Child - 03/17/2024 3:14 PM EDT Patient is returning the call. He is ok with seeing Lyubov. He is unable to get to the lab before his appointment, as his who drives him recently fell andbroke her hip. If there is any way of doing the labs when he comes in, it would be greatly appreciated. [facility]06-28-2024 Miscellaneous Notes* Telephone Encounter - Archana Child - 03/17/2024 3:14 PM EDT Patient is returning the call. He is ok with seeing Lyubov. He is unable to get to the lab before his appointment, as his who drives him recently fell andbroke her hip. If there is any way of doing the labs when he comes in, it would be greatly appreciated. * Telephone Encounter - No Marin - 03/17/2024 11:40 AM EDT 2nd attempt, tried to call patient and phone didn't ring * Telephone Encounter - Jessica Duff - 03/15/2024 3:33 PM EDT 1st attempt. Left mychart message letting patient know that appointment was rescheduled from Dr. Severino to Lyubov documented in this encounterUniversity Hospitals [facility]06-28-2024 Telephone encounter Note * Telephone Encounter - No Marin - 03/17/2024 11:40 AM EDT 2nd attempt, tried to call patient and phone didn't ring [facility]06-26-2024 Telephone encounter Note* Telephone Encounter - Jessica Duff - 03/15/2024 3:33 PM EDT 1st attempt. Left Quackenworthhart message letting patient know that appointment was rescheduled from Dr. Severino to Lyubov [facility]06-18-2024 Note* Addendum Note - Lyubov Prado APRN.CNP - 03/07/2024 11:15 AM EDTAddended by: LYUBOV PRADO on: 03/07/2024 11:15 AM Modules accepted: Orders [facility]06-18-2024 Telephone encounter Note* Telephone Encounter - Lyubov Prado APRN.CNP - 03/07/2024 11:15 AM EDT Amlodipine sent. Lyubov Prado APRN.NATHALY Requested Prescriptions Signed Prescriptions Disp Refills amLODIPine (NORVASC) 5 mg tablet 30 tablet 2 Sig: Take 1 tablet by mouth once daily. Authorizing Provider: LYUBOV PRADO Pharmacy Information Pharmacy Address Telephone [place] [id number] [place], [place] [address] [facility]06-18-2024 Miscellaneous Notes* Addendum Note - Lyubov Prado APRN.CNP - 03/07/2024 11:15 AM EDTAddended by: LYUBOV PRADO on: 03/07/2024 11:15 AM Modules accepted: Orders * Telephone Encounter - Lyubov Prado APRN.CNP - 03/07/2024 11:15 AM EDT Amlodipine sent. Lyubov Prado APRN.NATHALY Requested Prescriptions Signed Prescriptions Disp Refills amLODIPine (NORVASC) 5 mg tablet 30 tablet 2 Sig: Take 1 tablet by mouth once daily. Authorizing Provider: LYUBOV PRADO Pharmacy Information Pharmacy Address Telephone [facility] [place], [place] [address] * Telephone Encounter - Kate Ruiz RN - 03/07/2024 11:10 AM EDT Spoke to Dixie, the Amlodipine was requesting to be refilled, an empty bottle was found, request was made to refill per Dixie. FYI * Telephone Encounter - Kate Ruiz RN - 03/07/2024 10:46 AM EDT Dixie left a message with the meds he will be taking. Amlodipine 5 mg Lisinopril 5 mg Spironolactone 25 mg Metoprolol 25 mg If need to reach her [phone] * Telephone Encounter - Kate Ruiz RN - 03/07/2024 9:21 AM EDT Spoke to [place], gave message below, to CB with any questions. * Telephone Encounter - Kate Ruiz RN - 03/07/2024 8:50 AM EDT Facility asked that nurse get a CB in 10 minutes. * Telephone Encounter - Tayler Vuong RN - 03/06/2024 4:44 PM EDT Called [phone] with desk to call us back to verify meds * Telephone Encounter - Lyubov Prado APRN.CNP - 03/06/2024 4:27 PM EDT From what I can see, his current blood pressure medications are as follows: lisinopril 5 mg once daily, metoprolol 25 mg once daily, spironolactone 25 mg daily. Lyubov Prado APRN.NATHALY * Telephone Encounter - Archana Child - 03/06/2024 12:01 PM EDT [facility] is calling Paulina Severino MD today with concern regarding Patient Update Dixie stated he has not been taking his BP meds, amlodipine for quite awhile. He had the wrong dose of Lisinopirl 2.5 but mychart states 5 mg. He is not sure of what meds he is supposed to be taking. She is asking if a nurse can please call her to review his medications so she can advise him. Patient has been identified by name and birthdate. Duration of symptoms: N/A Person calling: Dixie [phone] Was an appointment scheduled: No Closing statement: Results or non-symptom based questions: Thank you for calling [facility], your call will be returned within the next business day. Archana Child documented in this encounterUniversity Hospitals [facility]06-18-2024 Telephone encounter Note * Telephone Encounter - Kate Ruiz RN - 03/07/2024 11:10 AM EDT Spoke to Dixie, the Amlodipine was requesting to be refilled, an empty bottle was found, request was made to refill per Dixie. FYI [facility]06-18-2024 Telephone encounter Note* Telephone Encounter - Kate Ruiz RN - 03/07/2024 10:49 AM EDT Spoke to patient, called to reinforce making sure he takes his BP meds. Patient states he did speak to his International Sourcing Manager yesterday, the rx are straightened out, he will take them correctly. BP yesterday around 140/80?, did not have exact reading. just had surgery recently, patient has been busy. Patient did not want to change is appt with PCP, advised to CB if he has any issues with ,meds or his BP, agreed. FYI Reason for Disposition [1] Caller requesting NON-URGENT health information AND [2] PCP's office is the best resource Answer Assessment - Initial Assessment Questions 1. REASON FOR CALL or QUESTION:reviewing meds with patient, checking on BP reading. Protocols used: Information Only Call - No [id number] [facility]06-18-2024 Miscellaneous Notes* Telephone Encounter - Kate Ruiz RN - 03/07/2024 10:49 AM EDT Spoke to patient, called to reinforce making sure he takes his BP meds. Patient states he did speak to his International Sourcing Manager yesterday, the rx are straightened out, he will take them correctly. BP yesterday around 140/80?, did not have exact reading. just had surgery recently, patient has been busy. Patient did not want to change is appt with PCP, advised to CB if he has any issues with ,meds or his BP, agreed. FYI Reason for Disposition [1] Caller requesting NON-URGENT health information AND [2] PCP's office is the best resource Answer Assessment - Initial Assessment Questions 1. REASON FOR CALL or QUESTION:reviewing meds with patient, checking on BP reading. Protocols used: Information Only Call - No [id number] documented in this encounterUniversity Hospitals [facility] Center06-18-2024 Telephone encounter Note * Telephone Encounter - Kate Ruiz RN - 03/07/2024 10:46 AM EDT Dixie left a message with the meds he will be taking. Amlodipine 5 mg Lisinopril 5 mg Spironolactone 25 mg Metoprolol 25 mg If need to reach her [phone] [facility]06-18-2024 Telephone encounter Note* Telephone Encounter - Mellisa Pickett LPN - 03/07/2024 10:10 AM EDT Received comprehensive visit summary from [place]. Placed in provider's inbox for review. Route to MA scanning [facility]06-18-2024 Miscellaneous Notes* Telephone Encounter - Mellisa Pickett LPN - 03/07/2024 10:10 AM EDT Received comprehensive visit summary from [place]. Placed in provider's inbox for review. Route to MA scanning documented in this encounterUniversity Hospitals [facility] Center06-18-2024 Telephone encounter Note * Telephone Encounter - Kate Ruiz RN - 03/07/2024 9:21 AM EDT Spoke to Belen, gave message below, to CB with any questions. [facility]06-18-2024 Telephone encounter Note* Telephone Encounter - Kate Ruiz RN - 03/07/2024 8:50 AM EDT Facility asked that nurse get a CB in 10 minutes. [facility]06-17-2024 Telephone encounter Note* Telephone Encounter - Tayler Vuong RN - 03/06/2024 4:44 PM EDT Called [phone] with desk to call us back to verify meds [facility]06-17-2024 Telephone encounter Note* Telephone Encounter - Lyubov Prado APRN.CNP - 03/06/2024 4:27 PM EDT From what I can see, his current blood pressure medications are as follows: lisinopril 5 mg once daily, metoprolol 25 mg once daily, spironolactone 25 mg daily. Lyubov Prado APRN.NATHALY [facility]06-17-2024 Telephone encounter Note* Telephone Encounter - Archana Child - 03/06/2024 12:01 PM EDT [facility] is calling Paulina Severino MD today with concern regarding Patient Update Dixie stated he has not been taking his BP meds, amlodipine for quite awhile. He had the wrong dose of Lisinopirl 2.5 but mychart states 5 mg. He is not sure of what meds he is supposed to be taking. She is asking if a nurse can please call her to review his medications so she can advise him. Patient has been identified by name and birthdate. Duration of symptoms: N/A Person calling: Dixie [phone] Was an appointment scheduled: No Closing statement: Results or non-symptom based questions: Thank you for calling [facility], your call will be returned within the next business day. Archana Child [facility]06-13-2024 Telephone encounter Note* Telephone Encounter - Paulina Severino MD - 03/02/2024 4:12 PM EDT The following approved medication requests have been transmitted electronically. Requested Prescriptions Signed Prescriptions Disp Refills metoprolol succinate ER (TOPROL XL) 25 mg 24 hr tablet 60 tablet 0 Sig: Take 1 tablet by mouth once daily Authorizing Provider: PAULINA SEVERINO spironolactone (ALDACTONE) 25 mg tablet 60 tablet 0 Sig: Take 1 tablet by mouth once daily Authorizing Provider: PAULINA SEVERINO MD [facility]06-13-2024 Miscellaneous Notes* Telephone Encounter - Paulina Severino MD - 03/02/2024 4:12 PM EDT The following approved medication requests have been transmitted electronically. Requested Prescriptions Signed Prescriptions Disp Refills metoprolol succinate ER (TOPROL XL) 25 mg 24 hr tablet 60 tablet 0 Sig: Take 1 tablet by mouth once daily Authorizing Provider: PAULINA SEVERINO spironolactone (ALDACTONE) 25 mg tablet 60 tablet 0 Sig: Take 1 tablet by mouth once daily Authorizing Provider: PAULINA SEVERINO MD * Telephone Encounter - Sarah Oconnor MA - 03/02/2024 12:52 PM EDT Prescription Refill Information The patient has been identified by name and date of : Yes Caregiver verified no other encounters exist for this prescription request: Yes Caregiver confirmed with patient/requestor that no other refills are due, in the near future, with this provider at this time: No The last office visit in the department: 10/20/23 Does the patient have a future office visit with this provider/department: Yes Requested Prescriptions Pending Prescriptions Disp Refills metoprolol succinate ER (TOPROL XL) 25 mg 24 hr tablet [Pharmacy Med Name: Metoprolol Succinate ER 25 MG Oral Tablet Extended Release 24 Hour] 60 tablet 0 Sig: Take 1 tablet by mouth once daily spironolactone (ALDACTONE) 25 mg tablet [Pharmacy Med Name: Spironolactone 25 MG Oral Tablet] 60 tablet 0 Sig: Take 1 tablet by mouth once daily Sarah Oconnor MA March 02, 2024 12:52 PM documented in this encounterUniversity Hospitals [facility]aug[facility] Center06-13-2024 Telephone encounter Note * Telephone Encounter - Sarah Oconnor MA - 03/02/2024 12:52 PM EDT Prescription Refill Information The patient has been identified by name and date of : Yes Caregiver verified no other encounters exist for this prescription request: Yes Caregiver confirmed with patient/requestor that no other refills are due, in the near future, with this provider at this time: No The last office visit in the department: 10/20/23 Does the patient have a future office visit with this provider/department: Yes Requested Prescriptions Pending Prescriptions Disp Refills metoprolol succinate ER (TOPROL XL) 25 mg 24 hr tablet [Pharmacy Med Name: Metoprolol Succinate ER 25 MG Oral Tablet Extended Release 24 Hour] 60 tablet 0 Sig: Take 1 tablet by mouth once daily spironolactone (ALDACTONE) 25 mg tablet [Pharmacy Med Name: Spironolactone 25 MG Oral Tablet] 60 tablet 0 Sig: Take 1 tablet by mouth once daily Sarah Oconnor MA March 02, 2024 12:52 PM [facility]04-29-2024 Telephone encounter Note* Telephone Encounter - Terri Mulligan MA - 01/17/2024 9:53 AM EDT Pharmacy verified in Epic Patient has been identified by name and date of : Yes Patient aware RX will be sent to pharmacy. No need to notify patient. Pharmacy phones for refill(s): Requested Prescriptions Pending Prescriptions Disp Refills fenofibrate nanocrystallized (TRICOR) 145 mg tablet [Pharmacy Med Name: Fenofibrate 145 MG Oral Tablet] 90 tablet 0 Sig: Take 1 tablet by mouth once daily Date of last office visit : 10/20/2023 Date of next office visit : 03/27/2024 Last 2 Encounter Wt Readings: Date: Wt: 11/30/2023 0 kg () 11/09/2023 68 kg (150 lb) Cholesterol: Triglyceride (mg/dL) Date Value 02/24/2023 245 02/21/2020 201 HDL Cholesterol (mg/dL) Date Value 02/24/2023 36 02/21/2020 38 LDL Cholesterol (mg/dL) Date Value 02/24/2023 93 04/20/2017 73 LDL Calculated (mg/dL) Date Value 02/21/2020 24 ALT (U/L) Date Value 02/21/2020 24 ALT (SGPT) (U/L) Date Value 10/07/2023 13 Non HDL Cholesterol (mg/dL) Date Value 02/24/2023 142 02/21/2020 64 Please advise. Terri Mulligan MA [facility]04-29-2024 Miscellaneous Notes* Telephone Encounter - Terri Mulligan MA - 01/17/2024 9:53 AM EDT Pharmacy verified in [facility] Patient has been identified by name and date of : Yes Patient aware RX will be sent to pharmacy. No need to notify patient. Pharmacy phones for refill(s): Requested Prescriptions Pending Prescriptions Disp Refills fenofibrate nanocrystallized (TRICOR) 145 mg tablet [Pharmacy Med Name: Fenofibrate 145 MG Oral Tablet] 90 tablet 0 Sig: Take 1 tablet by mouth once daily Date of last office visit : 10/20/2023 Date of next office visit : 03/27/2024 Last 2 Encounter Wt Readings: Date: Wt: 11/30/2023 0 kg () 11/09/2023 68 kg (150 lb) Cholesterol: Triglyceride (mg/dL) Date Value 02/24/2023 245 02/21/2020 201 HDL Cholesterol (mg/dL) Date Value 02/24/2023 36 02/21/2020 38 LDL Cholesterol (mg/dL) Date Value 02/24/2023 93 04/20/2017 73 LDL Calculated (mg/dL) Date Value 02/21/2020 24 ALT (U/L) Date Value 02/21/2020 24 ALT (SGPT) (U/L) Date Value 10/07/2023 13 Non HDL Cholesterol (mg/dL) Date Value 02/24/2023 142 02/21/2020 64 Please advise. Terri Mulligan MA documented in this encounterUniversity Hospitals Geaug[facility] Center04-23-2024 Telephone encounter Note * Telephone Encounter - Paulina Severino MD - 01/11/2024 4:05 PM EDT The following approved medication requests have been transmitted electronically. Requested Prescriptions Signed Prescriptions Disp Refills insulin lispro (HUMALOG KWIKPEN) 100 unit/mL 15 mL 5 Sig: INJECT 12 UNITS SUBCUTANEOUSLY THREE TIMES DAILY BEFORE MEALS - ADD 2 UNITS IF GLUCOSE IS [id number] Authorizing Provider: PAULINA SEVERINO MD [facility]04-23-2024 Miscellaneous Notes* Telephone Encounter - Paulina Severino MD - 01/11/2024 4:05 PM EDT The following approved medication requests have been transmitted electronically. Requested Prescriptions Signed Prescriptions Disp Refills insulin lispro (HUMALOG KWIKPEN) 100 unit/mL 15 mL 5 Sig: INJECT 12 UNITS SUBCUTANEOUSLY THREE TIMES DAILY BEFORE MEALS - ADD 2 UNITS IF GLUCOSE IS [id number] Authorizing Provider: PAULINA SEVERINO MD * Telephone Encounter - Sarah Oconnor MA - 01/11/2024 2:17 PM EDT Pharmacy verified in [facility] Patient has been identified by name and date of : Yes Patient aware RX will be sent to pharmacy. No need to notify patient. Patient phones for refill(s): Requested Prescriptions Pending Prescriptions Disp Refills insulin lispro (HUMALOG KWIKPEN) 100 unit/mL 15 mL 5 Date of last office visit : 10/20/2023 Date of next office visit : 03/27/2024 Last 2 Encounter Wt Readings: Date: Wt: 11/30/2023 0 kg () 11/09/2023 68 kg (150 lb) Not applicable Please advise. Sarah Oconnor MA documented in this encounterUniversity Hospitals [facility]aug[facility] Center04-23-2024 Telephone encounter Note * Telephone Encounter - Sarah Oconnor MA - 01/11/2024 2:17 PM EDT Pharmacy verified in [facility] Patient has been identified by name and date of : Yes Patient aware RX will be sent to pharmacy. No need to notify patient. Patient phones for refill(s): Requested Prescriptions Pending Prescriptions Disp Refills insulin lispro (HUMALOG KWIKPEN) 100 unit/mL 15 mL 5 Date of last office visit : 10/20/2023 Date of next office visit : 03/27/2024 Last 2 Encounter Wt Readings: Date: Wt: 11/30/2023 0 kg () 11/09/2023 68 kg (150 lb) Not applicable Please advise. Sarah Oconnor MA [facility]04-15-2024 Miscellaneous Notes* Telephone Encounter - Sarah Oconnor MA - 01/03/2024 2:12 PM EDT Pharmacy verified in [facility] Patient has been identified by name and date of : Yes Patient aware RX will be sent to pharmacy. No need to notify patient. Patient phones for refill(s): Requested Prescriptions Pending Prescriptions Disp Refills escitalopram oxalate (LEXAPRO) 10 mg tablet 90 tablet 3 Sig: Take 1 tablet by mouth once daily. Date of last office visit : 10/20/2023 Date of next office visit : 03/27/2024 Last 2 Encounter Wt Readings: Date: Wt: 11/30/2023 0 kg () 11/09/2023 68 kg (150 lb) Not applicable Please advise. Sarah Oconnor MA documented in this encounterUniversity Hospitals Geaug[facility]04-10-2024 History of Present illness Narrative* Fritz Payan RN - 12/29/2023 1:38 PM EDT Advanced Illness Outreach Provider Action / FYI: Spoke to Shilo today -Doing well -Has been out and about running around -Agreed today would be the last call. -No other needs at this time. -This will be my last call to you on behalf of the discharge check in program. Going forward pleasereach out to your providers as you have in the past for any questions or concerns regarding your health Patient identified by name and date of . Reason for contact: Post Acute Care Outreach Contact made with patient: Yes Discussed care with patient Based on risk assessment analyst, the following disposition is advised: No symptoms or symptoms present, not severe. Routed to: No Action Needed [place] Education Provided this Outreach: No Patient has completed PAC program and will receive no further outreaches from the team. Feel free to look at chart review for more information or reach out with further questions. Removed name from CTT. Fritz Payan RN December 29, 2023 1:45 PM documented in this encounterUniversity Hospitals Geaug[facility]04-10-2024 History of Present illness Narrative* Alma Singh MA - 12/29/2023 10:59 AM EDT POPULATION HEALTH NAVIGATION OUTREACH Action/FYI LVM mychart message sent ANNUAL MEDICARE WELLNESS EXAM HGBA1C HCC CLOSURE Reason for Outreach Care Gap/HCC or Scheduling Wellness Visits Care Gaps due: Medicare Annual Wellness Visit HBA1C Patient Contacted: Unable or unnecessary to reach patient: Left message MyChart message sent HCC related Navigation Signature: Alma Singh MA December 29, 2023 10:59 AM documented in this encounterUniversity Hospitals Geaug[facility] Center04-10-2024 Miscellaneous Notes* Telephone Encounter - Minoo Boone LPN - 12/29/2023 8:07 AM EDT Call placed to patients . Note added to patients chart. * Telephone Encounter - Lyubov Prado APRN.CNP - 12/28/2023 4:50 PM EDT Patient is sending a message about his 's medication on his [employer] account. Please call him and find out which medication he's referring to about his , close this encounter, and make a new encounter in the correct chart. Please advise him to contact the [employer] support desk to help his get set up on her account. Lyubov Prado APRN.NATHALY * Telephone Encounter - Marci Mckeon MA - 12/28/2023 4:09 PM EDT Please review and advise documented in this encounterUniversity Hospitals Geaug[facility]04-03-2024 Miscellaneous Notes* Telephone Encounter - Paulina Severino MD - 12/22/2023 2:04 PM EDT You'll need to have an appointment and see what the Hba1c is before we can ok surgery Paulina Severino MD documented in this encounterUniversity Hospitals Geaug[facility]04-03-2024 History of Present illness Narrative* Fritz Payan RN - 12/22/2023 1:38 PM EDT Advanced Illness Outreach Provider Action / FYI: Fifth call Spoke to Shilo today -He is doing well -States [employer] called and said it will be a $3,000 copay to get his prosthesis so he might look at other companies. -Denies any new issues -He will call [facility] to see about a lightweight wheelchair and how to order it. -Will call for one more week Patient identified by name and date of . Reason for contact: Post Acute Care Outreach Contact made with patient: Yes Discussed care with patient Based on risk assessment analyst, the following disposition is advised: No symptoms or symptoms present, not severe. Routed to: No Action Needed [place] Education Provided this Outreach: No Fritz Payan RN December 22, 2023 2:06 PM documented in this encounterUniversity Hospitals Geaug[facility] Center03-21-2024 Miscellaneous Notes* Telephone Encounter - Minoo Boone LPN - 12/09/2023 4:09 PM EDT Received 12/09/2023 from [facility]. Placed in provider's inbox for review. Route to [place] for scanning. documented in this encounterUniversity Hospitals Geauga [facility] Center03-20-2024 History of Present illness Narrative* Fritz Payan RN - 12/08/2023 1:29 PM EDT Advanced Illness Outreach Provider Action / FYI: Third call Spoke to Shilo today -He is doing ok - came home over the weekend which made him happy -Today notes some dizziness, thinks it is due to sinuses -Has started to read about the Dexcom G7 so he can get it on and use it. -Needs to reach [facility] to speak with the PT/OT regarding info on a lightweight wheelchair. -Instructed him to check his mychart messages from PCP and vascular. He will check. -Agreed to talk next week. Spoke to Shilo for 1 hour and 6 min! Patient identified by name and date of . Reason for contact: Post Acute Care Outreach Contact made with patient: Yes Discussed care with patient Based on risk assessment analyst, the following disposition is advised: No symptoms or symptoms present, not severe. Routed to: No Action Needed [place] Education Provided this Outreach: No Fritz Payan RN December 08, 2023 2:28 PM documented in this encounterCleveland [id number] History of Present illness Narrative* Fritz Payan RN - 12/02/2023 11:22 AM EDT Advanced Illness Outreach Provider Action / FYI: Second call ( second attempt ) Spoke to Shilo today -He is doing great -His is doing much better in the snf -He went to [employer] to get sized for short legs, he reports his stump is ammonia still operator and sore -He is going to find out info on how to obtain a lightweight wheelchair on his own before asking for a RX or assistance. -Agreed to speak next week. Patient identified by name and date of . Reason for contact: Post Acute Care Outreach Contact made with patient: Yes Discussed care with patient Based on risk assessment analyst, the following disposition is advised: No symptoms or symptoms present, not severe. Routed to: No Action Needed [place] Education Provided this Outreach: No Fritz Payan RN December 02, 2023 12:13 PM documented in this encounterUniversity Hospitals Geauga [facility] Center03-13-2024 History of Present illness Narrative* Fritz Payan RN - 12/01/2023 1:25 PM EDT Advanced Illness Outreach Provider Action / FYI: Second Call First attempt, called both numbers and left a detailed message. Will call again tomorrow. Patient identified by name and date of . Reason for contact: Post Acute Care Outreach Contact made with patient: No, left message. Fritz Payan RN December 01, 2023 1:29 PM documented in this encounterUniversity Hospitals Geauga [facility] Center03-12-2024 History of Present illness Narrative* Elizabeth Ball APRN.PARK ACTIVITIES COORDINATOR - 11/30/2023 10:45 AM EDT Shilo Hathaway 72 year old male S/P Right above-knee amputation PROCEDURE: R AKA by Dr. Villalpando DATE: 09/17/23 SUBJECTIVE: Shilo Hathaway returns to the office today for ongoing evaluation following his amputation. Pt reportshe's doing pretty well. Notes that the scab had started to loosen up, and that some of it did snag and fall off in the bed sheets. The rest of it he did happen to pull off, but it was loose and readyto come off anyway. There has not been any bleeding or drainage from his stump. He's seen [facility] and they did take some initial measurements. Ready to continue with B prosthetics when cleared (hopefully today!). Reports that his is at a nursing facility now, recovering from her recent health scare (bowel obstruction) and slowly getting back to herself. EXAM: Neurological Exam: Normal; Awake, alert, oriented, pleasant, and appropriate; Strength and sensation grossly intact Right Stump Incision: Clean, dry, well approximated, and fully healed! IMPRESSION: Stable post op; OK to follow-up with [facility] for prosthetic legs! PLAN: Shilo will follow-up in 6 months for a stump checks and carotid US. He will call/MyChart and questions or concerns in the meantime. The patient is currently taking a statin: Yes The patient is currently taking aspirin: Yes Elizabeth Ball APRN.PARK ACTIVITIES COORDINATOR documented in this encounterUniversity Hospitals Geauga Medical Center03-06-2024 History of Present illness Narrative* Fritz Payan RN - 11/24/2023 4:23 PM EST Advanced Illness Outreach Provider Action / FYI: First call Spoke to Shilo today -He is doing really well. -He is very self sufficient, IADLs, uses a transfer board -Uses the microwave and does not like to stay home -RN last visit was last Wednesday - is currently in a SNF after major surgery, he is hoping she will be home in a few weeks or so. -Has a great attitude about everything that has been going on. -Would like a light weight wheelchair. Patient identified by name and date of . Reason for contact: Post Acute Care Outreach Contact made with patient: Yes Discussed care with patient Based on risk assessment analyst, the following disposition is advised: No symptoms or symptoms present, not severe. Routed to: No Action Needed [place] Education Provided this Outreach: No Fritz Payan RN November 24, 2023 4:42 PM documented in this encounterUniversity Hospitals Geauga Medical Center03-04-2024 Miscellaneous Notes* Telephone Encounter - Suzie Espitia MA - 11/22/2023 3:57 PM EST Last appointment: 10/20/23 Next appointment: n/a Pharmacy verified in [facility]. Refill(s) requested: Requested Prescriptions Pending Prescriptions Disp Refills tamsulosin (FLOMAX) 0.4 mg 30 capsule 8 Sig: Take 1 capsule by mouth once daily. Order(s) pended. Please advise. 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 Working on getting bilateral prosthetics, stump check 11-30-23 Deferred outreach to patient at this time due to: Chart Review Only Next Outreach date: 11-24-23 Fritz Payan RN November 16, 2023 8:22 PM documented in this encounterUniversity Hospitals Geauga Medical Center02-20-2024 Miscellaneous Notes* Telephone Encounter - Mellisa Pickett LPN - 11/09/2023 1:52 PM EST Received maintenance home visit summary 10/21/23 from [facility]. Placed in provider's inbox forreview. Route to [place] scanning. documented in this encounterUniversity Hospitals Geauga [facility] Center02-20-2024 History of Present illness Narrative* Elizabeth Ball APRN.PARK ACTIVITIES COORDINATOR - 11/09/2023 1:11 PM EST Images from the original note were not included. Shilo Hathaway 72 year old male S/P Right above-knee amputation PROCEDURE: R AKA by Dr. Villalpando DATE: 09/17/23 SUBJECTIVE: Shilo Hathaway returns to the office today for post-op evaluation following his recent amputation. He's home now, and doing well on his own. He's able to transfer independently and take care of his own ADL's. Unfortunately, his is currently in the ICU for a bowel obstruction, which is adding to his stress, and he has not yet taken his morning medications at the time of his visit, which is why his BP is elevated above his normal this morning. Shilo reports his stump has healed well, though he has noticed a couple of black spots that have recently appeared (? bumped his stump). No bleeding or drainage. [place] have remained intact, though many nurses between rehab and home care have wanted to remove them. No severe pain and phantom pain controlled with gabapentin. Has appointment coming upwith [facility] and will be working on getting in B AKA prosthetics (short legs). EXAM: Neurological Exam: Normal; Awake, alert, oriented, pleasant, and appropriate; Strength and sensation grossly intact Right Stump Incision: Clean, dry, well approximated, and well healed with joe intact; Few scabbed areas noted as pictured below, without edema, erythema, ecchymosis, or drainage: [place] removed with mild bleeding and no dehiscence as pictured below: * The above image(s) of the R AKA STUMP was/were taken on 11/09/2023, with the verbal permission of the patient, for use in clinical documentation purposes only using an encrypted, [facility] approved device. All efforts were made to exclude or minimize identifying information and respect patient modesty and privacy. IMPRESSION: Stable post op; Dry dressing applied over stump for mild bleeding s/p staple removal; Continue to cleanse stump with soap and water daily; OK to follow-up with [facility] as scheduled; Continue to monitorscabbed area - no s/s of infection at this time! PLAN: Shilo will follow-up in 3 weeks for a stump check. He will call/MyChart and questions or concerns inthe meantime. The patient is currently taking a statin: Yes The patient is currently taking aspirin: Yes Elizabeth Ball APRN.NATHALY documented in this encounterUniversity Hospitals Geauga Medical Center02-16-2024 Miscellaneous Notes* Telephone Encounter - Nivia Manning LPN - 11/05/2023 4:37 PM EST [facility]. This Nurse returned call however no answer. This Nurse left message requesting if this is a medical emergency to have patient go to the nearest hospital for assessment, diagnotic and lab services. Also, can call After Hoursand speak with the On-Call provider. If not a medical emergency to contact us back on Wednesday when we are in the office. Nivia Manning LPN November 05, 2023 4:40 PM documented in this encounterUniversity Hospitals Geauga Medical Center02-15-2024 History of Present illness Narrative* Marianna Klein MA - 11/04/2023 11:07 AM EST POST-ACUTE CARE (PAC) PROGRAM Quick Note Action/FYI: Chart review for Follow up #2 -patient doing good at last outreach -home care established -vascular appt 11/09/23 - currently in hospital Will outreach 1 week program completion Patient identified by name and . documented in this encounterUniversity Hospitals Geauga [facility] Center02-14-2024 Miscellaneous Notes* Telephone Encounter - Minoo Boone LPN - 11/03/2023 3:03 PM EST Received 11[facility]02/2023 from [facility]. Placed in provider's inbox for review. Route to [place] for faxing documented in this encounterUniversity Hospitals Geauga [facility] Center02-13-2024 Miscellaneous Notes* Telephone Encounter - Mellisa Pickett LPN - 11/02/2023 5:01 PM EST Received orders OT evaluation from [facility]. Placed in provider's inbox for review. Route to [place] fax documented in this encounterUniversity Hospitals Geauga [facility] Center02-12-2024 Miscellaneous Notes* Telephone Encounter - Minoo Boone LPN - 11/01/2023 1:54 PM EST Received 11/01/2023 from [facility]. Placed in provider's inbox for review. Route to [place] for faxing. documented in this encounterUniversity Hospitals Geauga Medical Center02-08-2024 History of Present illness Narrative* Marianna Klein MA - 10/28/2023 2:46 PM EST ALF FACILITY (SNF) TRANSITIONAL CARE MANAGEMENT (TCM) POST-ACUTE CARE (PAC) PROGRAM Transitions Navigator Outreach Provider Action/FYI: SNF TCM PAC follow up #1 DC: 10/16/[address] [facility] Jacquelin ([phone]) [facility]: [facility] [phone] Family Contact: renetta rylee (Spouse) [phone] Reason for hospitalization: ?Pt presented for chief complaint of right foot pain Dx- Osteomyelitis of foot, acute (HCC) Spoke to patient -TCM with PCP 10/20/23 -orders for homecare signed PCP office -vascular follow up 11/09/23 -home care comes in 2-3 times a week -using transport chair for showers no other AD No other concerns or needs will chart review 1 week TYPE OF OUTREACH: PAC TCM Follow-Up #1 PATIENT OUTREACH Contact made with patient:Brandy Lao this is Marianna Klein MA calling from the [facility] on behalf of Paulina Severino MD I am calling to check in with you to see how you re feeling since we spoke last. Do you have a fewminutes to update me on how you ve been doing? Yes Contact with patient post discharge, spoke to patient. Patient identified by name and . PATIENT HEALTH STATUS Would you say you're feeling BETTER, WORSE, or the SAME since we spoke last week? Better ACTION TAKEN: Patient reports Better or Same - No action required - Continue outreach. FOLLOW-UP QUESTIONS FROM INITIAL OUTREACH Were you able to follow-up with your Primary or Specialty Providers from you health care team? Yes - Great, glad to hear that! - no action needed. Were there any changes to your medications since we spoke last? No Do you have any questions about taking your medications or which medications you should be on? No Do you need any medication refills at this time? No ACTION TAKEN: No - No action required Do you have the equipment needed to be safe at home? Yes - That's good to hear! - no action needed Ask ONLY if patient was expecting Home Care Services to start. Has your Home Care Agency contactedyou and/or been out to visit you yet? Yes - That's great news! SOCIAL We would like to make sure you have what you need so that your basic wishes are met - including your personal safety, food, housing, and/or desire to be connected to community resources. Would you like to speak with a social work count team clerk to help give you support for any of these needs? No It can also be quite common to feel anxious or down during a time of transition from one place to another or getting acclimated to changes in your health and well-being. Would you like to talk to a mental health professional (social service coordinator) about how you have been feeling? No ACTION TAKEN: No - Patient has no needs at this time - No action taken ADVANCE CARE PLANNING & ADVANCE DIRECTIVES Thank you for providing updates to me about how you ve been feeling. Before we go, I d like to share some information with you about Advance Directives and Advance Care Planning so you can share yourwishes and goals with your health care provider. Advance care planning is a process that supports adults at any age or stage of health in understanding and sharing their personal values, life goals, and preferences regarding future medical care. The goal of advance care planning is to help ensure that you receive medical care that is consistent with your values, goals, and preferences. The first step of Advance Care Planning is to complete Advance Directives. Advance Directives are legal documents that provide written instructions about who can make medicaldecisions on your behalf if a medical condition or injury renders you unable to make decisions or communicate. Determine if patient has AD on file. If AD noted in EPIC, confirm still accurate. If no AD on file,ask if and how patient would like to receive information about it. No ACTION TAKEN: No - Patient prefers to not receive information at this time - No action taken Thank you for taking the time to talk with me today. I ll plan to call you in another week or so tosee how you re doing. Would you like to select a specific day next week that works well for you? Yes - Thank the patient and provide direct phone number should they need anything between calls. Schedule next outreach for day #30 post-SNF discharge in the Track Patient Outreach section. End outreach documented in this encounterUniversity Hospitals Geauga Medical Center02-08-2024 Miscellaneous Notes* Telephone Encounter - Mellisa Pickett LPN - 10/28/2023 1:56 PM EST Received sign off request for acknowledgement of pt eval completion from [facility]. Placed in provider's inbox for review. Route to [place] fax documented in this encounterUniversity Hospitals Geauga Medical Center02-05-2024 Miscellaneous Notes* Telephone Encounter - Paulina Severino MD - 10/25/2023 2:53 PM EST The following approved medication requests have been transmitted electronically. Requested Prescriptions Signed Prescriptions Disp Refills gabapentin (NEURONTIN) 600 mg tablet 120 tablet 2 Sig: Take 1 tablet by mouth four times daily for 90 days. Paulina Severino MD * Telephone Encounter - Dixie Peace MA - 10/25/2023 1:44 PM EST Pharmacy verified in [facility]. Patient has been identified by name and date of : Yes Patient aware RX will be sent to pharmacy. No need to notify patient. Patient phones for refill(s): Requested Prescriptions Pending Prescriptions Disp Refills gabapentin (NEURONTIN) 600 mg tablet 120 tablet 0 Sig: Take 1 tablet by mouth four times daily for 30 days. Date of last office visit : 10/20/2023 Date of next office visit : Visit date not found Last 2 Encounter Wt Readings: Date: Wt: 09/14/2023 64.4 kg (141 lb 15.6 oz) 08/10/2023 0 kg () Not applicable Please advise. Dixie Peace MA documented in this encounterUniversity Hospitals Geauga Medical Center02-01-2024 Instructions* Patient Instructions* aPulina Severino MD - 10/21/2023 4:40 PM EST WHAT YOU CAN DO TO PREVENT FALLS Many falls can be prevented. By making some changes, you can lower your chances of falling. Four things YOU can do to prevent falls for you* and your caregiver 1. Begin a regular exercise program Exercise is one of the most important ways to lower your chances of falling. It makes you stronger and helps you feel better. Exercises that improve balance and coordination (like Jeramy Chi) are the most helpful. Lack of exercise leads to weakness and increases your chances of falling. Ask your doctor or health care provider about the best type of exercise program for you. 2. Have your health care provider review your medicines Have your doctor or pharmacist review all the medicines you take, even prja-trr-bgrykvi medicines. As you get older, the way medicines work in your body can change. Some medicines, or combinations of medicines, can make you sleepy or dizzy andcan cause you to fall. 3. Have your vision checked Have your eyes checked by an eye doctor at least once a year. You may be wearing the wrong glasses or have a condition like glaucoma or cataracts that limits your vision. Poor vision can increase your chances of falling. 4. Make your home safer About half of all falls happen at home. To make your home safer: Remove things you can trip over (like papers, books, clothes, and shoes) from stairs and places where you walk. Remove small throw rugs or use double-sided tape to keep the rugs from slipping. Keep items you use often in cabinets you can reach easily without using a step stool. Have grab bars put in next to your toilet and in the tub or shower. Use non-slip mats in the bathtub and on shower floors. Improve the lighting in your home. As you get older, you need brighter lights to see well. Hang light-weight curtains or shades to reduce glare. Have handrails and lights put in on all staircases. Wear shoes both inside and outside the house. Avoid going barefoot or wearing slippers. For more information, contact: Centers for Disease Control and Prevention www.cdc.gov/injury * This information may not apply if you have certain medical conditions. documented in this encounterUniversity Hospitals Geauga Medical Center02-01-2024 Miscellaneous Notes* Telephone Encounter - Mellisa Pickett LPN - 10/21/2023 8:50 AM EST Received orders for group home and [facility]. Placed in provider's inbox for review. Route to [place] fax documented in this encounterUniversity Hospitals Geauga Medical Center01-31-2024 History of Present illness Narrative* Paulina Severino MD - 10/20/2023 2:21 PM EST Transitional Care Management Progress Note The patients TCM visit was performed within the 14 days of discharge. Patient's Date of discharge: 09/29/2023 from [facility] and 10/16/2023 from [facility] Date of initial coordinator contact after discharge: 10/19/2023 Discharge diagnosis: Osteomyelitis of foot Medication review completed Yes Transitional Care Management Progress Note The patients TCM visit was performed within the 7 days of discharge from snf Patient's Date of discharge: 09/29/2023 from [facility] and 10/16/2023, [facility] Date of initial coordinator contact after discharge: 10/19/2023 Discharge diagnosis: Osteomyelitis of foot Medication review completed Yes Paulina Severino MD Provider Documentation: Shilo Hathaway is a 72 year old male here today for a follow up from recent hospitalization. I have reviewed the patient's hospital course including discharge summary, discharge medications , and followup needs with the patient and any family members present at today's visit. HPI: Brief Hospital Course Shilo Hathaway is a 72-year-old male with history of severe PAD status post surgical revascularizations and interventions and s/p L AKA, CAD, HLD, HTN, history of stroke, GERD, and HFrEF who presents with nonhealing wound of right foot. Patient was initially started on broad-spectrum antibiotics and were continued until 09/19. Vascular surgery was consulted and patient underwent right AKA on 09/17. Antibiotics for continued for total of 6 days. Patient remained vitally stable and improved clinically. Vascular surgery advising joe to be removed in 6 weeks. He does require a slide board to transfer from bed to chair. Patient transferred to SNF on 09/29/2023 Discharged from SNF on 10/16/2023 Today: - Patient is feeling well - In need of medication refills Health Maintenance Due for Hep C Screening Due for DTaP, Tdap, Td vaccine (1-Tdap) Due for RSV Vaccine Due for Diabetic Foot Exam Due for Urine Albumin:Creatinine Ratio Due for Advanced Directive Discussion Due for Depression Assessment Labs reviewed. Past medical history, appointments, medications, allergies reviewed. REVIEW OF SYSTEMS General: Feels well, no weight changes, fevers or chills. HEENT: No sinus congestion, earache, sore throat. Cardiac: No chest pain, palpitations Resp: No cough, wheeze, shortness of breath GI: No reflux symptoms, food intolerance, bowel changes. : No urinary frequency, dysuria. MS: post op pain. Improving but still pretty significant. 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 Carotid artery occlusion Carotid artery stenosis Cerebrovascular accident (CVA) (HCC) Coronary arteriosclerosis [place] 1998 Depressive disorder Disc disorder of lumbar region Diverticulitis of colon Diverticulitis of colon Essential tremor Gastroesophageal reflux disease Generalized anxiety disorder Hiatal hernia History of myocardial infarction Hyperlipidemia Hypertension Intervertebral disc disorder of lumbar region with myelopathy Irritable bowel syndrome Myocardial infarction (HCC) Old myocardial infarction Peripheral vascular disease (HCC) PERS HX COLONIC POLYPS Preoperative testing 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 Heart: Regular rate and rhythm. Normal S1 and S2. No murmurs, rubs, or gallops. Lungs: Clear to auscultation bilaterally. No respiratory distress. No wheezes, rales, or rhonchi. Abdomen: Soft, non-tender, no distention. Extremities: bilat AKA> R leg incision/ sutures. Healed. Data Reviewed Assessment/Plan (I25.10) Coronary arteriosclerosis Comment: In need of refill Plan: rosuvastatin (CRESTOR) 20 mg tablet (G89.18) Postoperative pain Comment:S/p right AKA on 09/17/2023. Surgical site healing well, no concerns at this time. In need of refill Plan: oxyCODONE-acetaminophen (PERCOCET) 5-325 mg tablet Requested Prescriptions Pending Prescriptions Disp Refills tamsulosin (FLOMAX) 0.4 mg 30 capsule 8 Sig: Take 1 capsule by mouth once daily. rosuvastatin (CRESTOR) 20 mg tablet 90 tablet 3 Sig: Take 1 tablet by mouth once daily. flash glucose sensor (FREESTYLE CL 14 DAY SENSOR) kit 6 Each 3 Sig: Apply sensor to arm every 14 days. oxyCODONE-acetaminophen (PERCOCET) 5-325 mg tablet 28 tablet 0 Sig: Take 1 tablet by mouth every 4 hours as needed for pain for up to 7 days. senna-docusate (SENNA-S) 8.6-50 mg per tablet 28 tablet 0 Sig: Take 1 tablet by mouth two times a day for 14 days. RTO: 4 months Scribe Attestation: By signing my name below, I, Timbo Galvan, attest that this documentation has been prepared under the direction and in the presence of Manpreet Severino M.D. Electronically Signed: Neftali Wall. October 20, 2023 2:21 PM Provider Attestation: I, Paulina Severino MD, personally performed the services described in this documentation. All medical record entries made by the scribe were at my direction and in my presence. I have reviewed the chart and discharge instructions (if applicable), and agree that the record reflects my personal performance and is accurate and complete. Electronically Signed: Paulina Severino MD October 21, 2023 4:32PM documented in this encounterUniversity Hospitals Geauga Medical Center11-29-2023 History of Present illness Narrative* Dylan Martinez MD - 08/18/2023 9:07 AM EST Images from the original note were not included. August 18, 2023 Shilo Barriga Renetta [id number] Chief Complaint: right toe ulcers Subjective: The patient is having more pain. The right third toe is now completely gangrenous but there is a good demarcation line at the base of the toe. The right fourth toe is a little larger but is not frankly gangrenous. PAST MEDICAL HISTORY Diagnosis Date Aortoiliac occlusive disease (HCC) Atherosclerotic heart disease of mentasta coronary artery without angina pectoris Carotid artery occlusion Carotid artery stenosis Cerebrovascular accident (CVA) (HCC) Coronary arteriosclerosis [place] 1998 Depressive disorder Disc disorder of lumbar region Diverticulitis of colon Diverticulitis of colon Essential tremor Gastroesophageal reflux disease Generalized anxiety disorder Hiatal hernia History of myocardial infarction Hyperlipidemia Hypertension Intervertebral disc disorder of lumbar region with myelopathy Irritable bowel syndrome Myocardial infarction (HCC) Old myocardial infarction Peripheral vascular disease (HCC) PERS HX COLONIC POLYPS Preoperative testing 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 Sleep apnea SOB (shortness of breath) 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) Type 2 diabetes mellitus (HCC) ALLERGIES Allergen Reactions Atorvastatin Myalgia Levofloxacin Unknown Metformin Diarrhea Objective: BP 156/62 (BP Site: Left Arm, BP Position: Sitting, BP Cuff Size: Large Adult) Pulse 119 Temp (!) 35.6 C (96 F) (Temporal) Resp 16 CONSTITUTIONAL: No distress NEUROLOGIC/PSYCHIATRIC: Oriented to time, place & person LUNGS: normal respiratory effort, no rales noted INTEGUMENTARY: Wound - see wound assessment Hemoglobin A1C (%) Date Value 07/16/2023 9.8 02/24/2023 10.7 08/06/2022 9.0 04/09/2021 10.2 01/07/2021 11.2 02/21/2020 11.6 11/07/2018 9.3 07/26/2017 8.7 10/12/2014 10.7 12/06/2013 9.6 Hemoglobin A1c (%) Date Value 04/13/2016 8.2 10/10/2015 8.4 Hemoglobin A1C (POCT) (%) Date Value 04/22/2023 12.0 11/23/2022 10.8 12/30/2021 9.8 09/18/2021 9.7 10/04/2020 11.0 Wound 07/16/23 0954 Diabetic Ulcer Toe D3, third Anterior;Right (Active) Properties Placement Date 07/16/23 Placement Time 0954 Location Toe D3, third Wound Number 1 Wound Approximate Age at First Assessment (Weeks) 6 weeks Primary Wound Type Diabetic Ulcer (BALES 3) Wound Location Orientation Anterior;Right Assessments 08/18/2023 8:00 AM Wound Image Site Assessment Black;Purple;Painful Radha-Wound Assessment Painful Shape BALES 3 Wound Length (cm) 4.5 cm Wound Width (cm) 1.5 cm Wound Surface Area (cm^2) 6.75 cm^2 Wound Depth (cm) 0.1 cm Wound Volume (cm^3) 0.675 cm^3 Wound Healing % -40 Drainage Description Yellow Drainage Amount Moderate Odor Mild Treatments Cleansed;Mechanical Debridement Dressing Mesalt;Gauze Dressing Changed Changed Dressing Status New drainage;Old drainage;Removed Wound Bed Eschar (%) 100 % Non-staged Wound Description Full thickness Active Orders Date Order Priority Status Authorizing Provider 08/04/23 0955 WOUND DRESSING CHANGE Routine Active Dylan Martinez MD - Frequency:: Daily - Type: Dry gauze - Cleanse wound with:: Soap and Water - Apply to wounds:: Mesalt 07/28/23 1049 WOUND DRESSING CHANGE Routine Active Dylan Martinez MD - Frequency:: Daily - Type: Dry gauze - Cleanse wound with:: Soap and Water - Apply to wounds:: Mesalt - Cover/secure wound with:: Roll gauze 07/22/23 1352 WOUND DRESSING CHANGE Routine Active Dylan Martinez MD - Frequency:: Daily - Type: Dry gauze - Apply to wounds:: Mesalt - Cover/secure wound with:: Roll gauze 07/16/23 1055 WOUND DRESSING CHANGE Routine Active Dylan Martinez MD - Frequency:: Daily - Type: Dry gauze - Cleanse wound with:: Soap and Water - Apply to wounds:: Mesalt Wound 07/16/23 0955 Diabetic Ulcer Toe D4, fourth Anterior;Right (Active) Properties Placement Date 07/16/23 Placement Time 0955 Location Toe D4, fourth Wound Number 2 Wound Approximate Age at First Assessment (Weeks) 6 weeks Primary Wound Type Diabetic Ulcer (BALES 3) Wound Location Orientation Anterior;Right Assessments 08/18/2023 8:00 AM Wound Image Site Assessment Sloughing;Granulation;Painful Radha-Wound Assessment Painful Shape BALES 3 Wound Length (cm) 2.5 cm Wound Width (cm) 1.5 cm Wound Surface Area (cm^2) 3.75 cm^2 Wound Depth (cm) 0.1 cm Wound Volume (cm^3) 0.375 cm^3 Wound Healing % -188 Drainage Description Yellow Drainage Amount Moderate Odor Mild Treatments Cleansed;Mechanical Debridement Dressing Mesalt;Gauze Dressing Changed Changed Dressing Status New drainage;Old drainage;Removed Wound Bed Granulation (%) 20 % Wound Bed Slough (%) 80 % Non-staged Wound Description Full thickness Active Orders Date Order Priority Status Authorizing Provider 08/04/23 0955 WOUND DRESSING CHANGE Routine Active Dylan Martinez MD - Frequency:: Daily - Type: Dry gauze - Cleanse wound with:: Soap and Water - Apply to wounds:: Mesalt 07/28/23 1049 WOUND DRESSING CHANGE Routine Active Dylan Martinez MD - Frequency:: Daily - Type: Dry gauze - Cleanse wound with:: Soap and Water - Apply to wounds:: Mesalt - Cover/secure wound with:: Roll gauze 07/22/23 1352 WOUND DRESSING CHANGE Routine Active Dylan Martinez MD - Frequency:: Daily - Type: Dry gauze - Apply to wounds:: Mesalt - Cover/secure wound with:: Roll gauze 07/16/23 1055 WOUND DRESSING CHANGE Routine Active Dylan Martinez MD - Frequency:: Daily - Type: Dry gauze - Cleanse wound with:: Soap and Water - Apply to wounds:: Mesalt ASSESSMENT/PLAN: 1. 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 - WOUND DRESSING CHANGE - XR CHEST 2V FRONTAL/LAT - WOUND HBO TREATMENT 2. Gangrene of toe of right foot (HCC) - ICD9: 785.4, ICD10: I96 - WOUND HBO TREATMENT 3. Type 2 diabetes mellitus with foot ulcer (CODE) (HCC) - ICD9: 250.80, 707.15, ICD10: E11.621 - WOUND HBO TREATMENT 4. Peripheral vascular disease, unspecified (HCC) - ICD9: 443.9, ICD10: I73.9 - WOUND HBO TREATMENT Dylan Martinez MD Visit [facility] HBO Note: Patient is a 72-year-old diabetic male who has a Bales 4 diabetic foot ulcer on the right foot. He is already status post left above-knee amputation due to gangrenous changes in his left foot. The patient started having a wound on the right foot about a month ago. Originally it was just at the base of the third toe but over the last month that is worsened and the entire third toe is now involved. He has seen vascular surgery. He has a long history of vascular procedures including axillary bifemoral bypass and stent procedures. He has seen vascular surgery and they have nothing moreto offer him. His МАРИЯ is only 0.3 at the ankle and there is no flow into his great toe. He has had a course of antibiotics without any improvement. He presently has a protective shoe that he is usingand is minimally ambulatory due to pain in this foot. He is being referred for hyperbaric oxygen treatment now in a limb salvage situation. Past medical history includes severe peripheral artery disease with aortic iliac occlusive disease,coronary artery disease and carotid artery occlusion. He has had a stroke in the past as well as a myocardial infarction. He also has diverticulosis of the colon, essential tremor, gastroesophageal reflux disease, hyperlipidemia, hypertension, lumbar disc disease, sleep apnea, and diabetes. His past surgical history has extensive cardiovascular procedures including distal limb bypass coronary artery stent placement and carotid endarterectomy. He is status post left above-knee amputation. He hasa past smoker having stopped in 1998. He does not drink alcohol. He has no history of pneumothorax or primary pulmonary disease and has never had difficulties with his ears. Echocardiogram in the middle of 2021 showed ejection fraction of 35%. Recent EKG showed some new inferior lead changes but noacute ischemia. His most recent hemoglobin A1c was 9.8, which was down to percentage points from 1 done 3 months earlier. Physical examination shows a blood pressure of 156/62, respirations 16, pulse 118, temperature 96. His lungs are clear to auscultation with no rales. His heart seems regular. His ears have significant wax in the external auditory canals, but the eardrums appear to be normal. Examination of the right foot shows a gangrenous third toe with no signs of proximal infection. There is also a wound on the medial aspect of the right fourth toe adjacent to this area. EKG and hemoglobin A1c were mentionedpreviously. A chest x-ray is pending. The patient has no contraindications to hyperbaric oxygen therapy. He has no history of pneumothorax or ear difficulties. He has never been exposed to chemo therapeutic agents and is not on any steroids. He does not have multiple sclerosis. I recommend hyperbaric oxygen therapy with the goal of limb salvage and minimizing tissue loss. Hisright third toe is not recoverable, but preserving the rest of the foot and not requiring any amputation surgery would be beneficial to the patient. His МАРИЯ is only 0.3 on the right ankle and he would likely not even he will below-knee amputation would only be offered an above- knee amputation. Thiswould give him a second above-knee amputation which would seriously hinder his long-term survival and mobility. If we can salvage the foot he will continue to have a much better quality of life. The supraphysiologic levels of oxygenation during hyperbaric oxygen therapy would promote growth of Braden angiogenesis in the foot and around the base of the gangrenous toe, which would hopefully allow the healthy tissue to continue to heal and provide for possibly autoamputation of the third toe. Becauseof congestive heart failure history, I will treat him at 2.0 ROXIE. He will be treated with hyperbaric oxygen therapy using 100% oxygen at 2.0 ROXIE for 90 minutes. He will not require air breaks. Total treatment time will be 120 minutes, 4 segments. Blood sugar will be checked before and after every treatment and his ears will be checked. Any evidence of barotrauma will lead to ENT referral. The risks and benefits of this treatment were discussed with the patient and he chooses to proceed. documented in this encounterUniversity Hospitals Geauga Medical Center11-29-2023 Instructions* Patient Instructions* Tracy Ch LPN - 08/18/2023 8:39 AM EST Wounds Evaluated by [facility]: 1.Right 3rd toe 2.Right 4th toe ANESTHETIC ADMINISTRATION: 2% Lidocaine HCl applied topical as needed for dressing changes or debridement during visit: applied 08/18/2023 CLINIC INTERVENTIONS TODAY: Debridement/physician: mechanical debridement 08/18/2023 Consent signed; Dr. Martinez on 07/16/2023 Molecul[employer] Picture Taken:07/16/2023 DRESSING ORDERS: Wound:right 3rd and 4th toe Apply: Mesalt 4X4 gauze Secure with conform/kerlix/gauze and tape Change the dressing daily Change the dressing as needed for drainage, becoming soiled or noticeable irritation. Wash all wounds with soap and water or wound cleanser with dressing changes. Do not get dressing(s) wet. Should dressings become wet, change the dressing. Pt may shower, but no soaking in the tub. COMPRESSION NEEDED:N/A due to wound location OFFLOADING REQUIRED:Patient has shoe that is open to relieve pressure on the toes NUTRITION: Good nutritional supports wound healing. Maintain good blood sugar control if diabetic. Hydrate well to maintain good skin integrity. FOLLOW-UP APPOINTMENTS: Wound Center follow-up on: Friday August 25, 2023 at 11:30 am All Wednesdays in August 2023 at PENDING or ORDERED TESTIN07/16/2023 Xray's ordered for Right foot and Left thigh 07/16/2023 Hemoglobin A1C ordered Please get before next appointment 08/18/2023 - CXR ordered Home Health Company (If Applicable): Supply Company and Last Order Date: 07/22/23 ordered through [facility] 07/16/2023 Supplies ordered through [employer] will be delivered to your home Other notes or details:07/16/2023 Antibiotics ordered today please picker box operator at your pharmacy 08/18/2023 - discussed HBOT Direct Number for HBOT Encouraged patient to start use of Debrox 08/18/2023 Wound Center Information To reschedule or cancel an appointment call our offices directly at: or . To schedule ordered testing call: Central Scheduling at . Please bring any prescription medication(s) that you are placing on your wound(s) to each Wound Center appointment for application. Questions about your wound, please call the Wound Center: or (M-F 8 a.m.-4:00 p.m.). Should you develop a problem with your wound outside of normal business hours, please call your primary care physician or go directly to the ER. Report any signs of infection, such as fever, chills, nausea, increased drainage, increased swelling, any areas of increased warmth or redness around the wound, foul odor, or increased pain to the Wound Center immediately. If you are in need of financial assistance regarding your appointments or other services, please call to be connected with a Patient Esthetics Instructor. Please be advised wait times may be exceptionally long during this time. If Coflex TLC (XL or LITE) or double layer compression wrap was applied during your appointment, please understand it can be removed for ordered testing. This testing can include but is not limited to vascular exams, radiology exams or ultrasounds. In the event you are hospitalized or need specialized care and are unable to make it to your next appointment for a dressing change, the multi layer dressing should be completely removed. Do not leave the wrap on for any longer than 10 days. If you or your caregiver have questions or concerns, please call the Wound Center at or . Need supplies? Supplies are ordered at the time of your visit. As a wound center we will do our best to ensure supplies are ordered and delivered in a timely manner. Orders can only be placed if the patient has been seen recently in our offices and there are no pending insurance issues. Due to insurance limits, some supplies will only be eligible for monthly delivery. Please make every effort to let us know when you need supplies at the time of your visit. documented in this encounterUniversity Hospitals Geauga Medical Center11-28-2023 Miscellaneous Notes* Telephone Encounter - Deann Rasheed - 08/17/2023 9:10 AM EST [facility] [id number] documented in this encounterUniversity Hospitals Geauga Medical Center11-22-2023 History of Present illness Narrative* Anne Villalpando MD - 08/11/2023 2:53 PM EST Shilo Hathaway 72 year old male here for follow-up PAD He has undergone the following procedure: - Attempted ABF -- 2016 DJW - R Ax- fem / R fem- L fem bypass with B DRESS FINISHER endart -- 2016 DJW - L groin exploration, LLE graft thrombectomy -- 2016 JZ - L groin exploration with thrombectomy of fem-fem bypass -- 2017 DJW - L ax- profunda to R profunda bypass w/ redo groins -- LM 2021 - L AKA -- CB 2021 SUBJECTIVE: Mr. Hathaway returns to the office for routine follow-up of his PAD. He has a wound on his R foot that is being followed by wound care. He continues to have significant rest pain in the R LE. He banged his toe on the right and it is discolored. +CAD, HLD, HTN, [place] (1998), DM, Carotid ASO Former smoker - quit in 1998. TESTING: PVR done 06/23/23, results: R МАРИЯ 0.30/TBI 0.00 PVR done 12/15/22, results: R МАРИЯ 0.90/TBI 0.53 PAST MEDICAL HISTORY Diagnosis Date Aortoiliac occlusive disease (HCC) Atherosclerotic heart disease of mentasta coronary artery without angina pectoris Carotid artery occlusion Carotid artery stenosis Cerebrovascular accident (CVA) (HCC) Coronary arteriosclerosis [place] 1998 Depressive disorder Disc disorder of lumbar region Diverticulitis of colon Diverticulitis of colon Essential tremor Gastroesophageal reflux disease Generalized anxiety disorder Hiatal hernia History of myocardial infarction Hyperlipidemia Hypertension Intervertebral disc disorder of lumbar region with myelopathy Irritable bowel syndrome Myocardial infarction (HCC) Old myocardial infarction Peripheral vascular disease (HCC) PERS HX COLONIC POLYPS Preoperative testing 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 Sleep apnea SOB (shortness of breath) 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) Type 2 diabetes mellitus (HCC) PAST SURGICAL HISTORY Procedure Laterality Date AMPUTATION OF LOWER LEG Left 05/05/2022 Left above knee amputation ANGIOPLASTY 1998, 2004, 2013 CAROTID ENDARTERECTOMY Bilateral right 02/2013, left 08/2001 COLONOSCOPY FLX DX W/COLLJ SPEC WHEN PFRMD 2000 Colonoscopy with polypectomies COLONOSCOPY SCREENING 07/04/2021 tubular adenomas x5, severe diverticulosis ESOPHAGOGASTRODUODENOSCOPY TRANSORAL DIAGNOSTIC 2000 EGD reportedly normal EXPLORATION GROIN Left 04/29/2018 Left Groin Exploration, Thrombectomy of Left Limb of Axillo-Bifemoral Bypass, Revision of Left Femoral Anastomosis INSERT INTRACORONARY STENT 1998 RCA LAPAROSCOPY SURG CHOLECYSTECTOMY 1997 Cholecystectomy, lap LEFT HEART CATH,PERCUTANEOUS 1998 Cardiac cath, L heart PAST SURGICAL HISTORY OF Carotid stenosis PAST SURGICAL HISTORY OF Bilateral 12/25/2016 Axillo bifem bypass PAST SURGICAL HISTORY OF ureter removal STENT PLACEMENT 1998 BMS RCA STENT PLACEMENT 11/2013 MARVIN RCA Current Outpatient Medications on File Prior to Visit Medication Sig ACETAMINOPHEN (TYLENOL ORAL) Take 1-2 tablets by mouth every 6 hours as needed. aspirin, enteric coated (ASPIRIN, ENTERIC COATED) 325 mg EC tablet Take 325 mg by mouth once daily. benzonatate (TESSALON PERLE) 100 mg capsule Take 1 capsule by mouth three times daily as needed. (Patient not taking: Reported on 06/29/2023) clopidogrel (PLAVIX) 75 mg tablet Take 1 tablet by mouth once daily. diclofenac (VOLTAREN) 0.1 % ophthalmic solution Use 1 Drop in the left eye twice daily. (Patient not taking: Reported on 06/09/2023) escitalopram oxalate (LEXAPRO) 10 mg tablet Take 1 tablet by mouth once daily. fenofibrate nanocrystallized (TRICOR) 145 mg tablet Take 1 tablet by mouth once daily. flash glucose scanning reader ([employer] CL 14 DAY READER) 1 Each once daily. flash glucose sensor (OCP [employer]iveSTYLE CL 14 DAY SENSOR) kit Apply sensor to arm every 14 days. gabapentin (NEURONTIN) 600 mg tablet Take 1 tablet by mouth three times daily for 90 days. insulin glargine (BASAGLAR KWIKPEN U-100 INSULIN) 100 unit/mL (3 mL) Inject 25 Units subcutaneouslydaily at bedtime. insulin lispro (HUMALOG KWIKPEN) 100 unit/mL Inject 18 Units subcutaneously three times daily before meals. Plus additional 2 units if glucose is over 250. Insulin Voca, Disposable, (PEN NEEDLE) 32 gauge x 5/32 Inject 1 Each subcutaneously every 24 hours. Give with each insulin administration. lancets (ENT Bi[employer] SolutionsET SUPER THIN LANCETS) 30 gauge Use to test glucose 4 times daily, as directed. DX: E11.42, E11.65, Z79.4 lisinopril 2.5 mg tablet Take 1 tablet by mouth once daily. metoprolol succinate ER (TOPROL XL) 25 mg 24 hr tablet Take 1 tablet by mouth once daily. MULTIVIT &MINERALS/FERROUS FUM (MULTI VITAMIN ORAL) Take by mouth once daily. ofloxacin (OCUFLOX) 0.3 % ophthalmic solution (Patient not taking: Reported on 06/09/2023) prednisoLONE acetate (PRED FORTE) 1 % ophthalmic suspension (Patient not taking: Reported on 06/09/2023) rivaroxaban (XARELTO) 20 mg tablet Take 1 tablet by mouth daily with dinner. rosuvastatin (CRESTOR) 20 mg tablet Take 1 tablet by mouth once daily. spironolactone (ALDACTONE) 25 mg tablet Take 1 tablet by mouth once daily. tamsulosin (FLOMAX) 0.4 mg Take 1 capsule by mouth once daily TRUE METRIX GLUCOSE TEST STRIP test strip Use to test glucose 4 times daily, as directed. DX: E11.42, E11.65, Z79.4 UNIFINE PENTIPS PLUS 32 gauge x 5/32 Use for insulin pen injections 5 times daily, as directed. DX: E11.42, E11.65, Z79.4 No current facility-administered medications on file prior to visit. ALLERGIES Allergen Reactions Atorvastatin Myalgia Levofloxacin Unknown Metformin Diarrhea BP 148/60 (BP Site: Right Arm, BP Position: Sitting, BP Cuff Size: Large Adult) Pulse 119 Ht 5'4 (1.626 m) SpO2 97% BMI 25.40 kg/m PHYSICAL EXAM: General Appearance: Well appearing, alert, in no acute distress, well-hydrated, well nourished. Skin: Skin color, texture, turgor normal, no suspicious rashes. Wound to R 3/4th toes, puprle discoloration of R 3rd toe Head: Normocephalic, no masses, lesions, tenderness or abnormalities. Eyes: Anicteric sclera. Extraocular movements are intact. Ears: External ears normal, hearing is adequate. Neck: Supple. Lungs: Breathing is easy and unlabored. Extremities: No deformities, edema, skin discoloration, clubbing or cyanosis. L AKA with stump wellhealed. Peripheral Pulses: Capillary refill brisk, peripheral pulses not palpable in R; Weak DP signal found, PT not found, weak Pop signal found Neurologic: Gait not observed - wheelchair. Normal cognition and motor skills. Sensation decreased d/t longstanding neuropathy, Strength grossly intact. IMPRESSION: Mr. Masterson has extensive vascular history including multiple previous bypasses and L AKA. We discussed today that he does not have a revasculazation option remaining. Surgical option would be amputation - patient does not desire an amputation at this time and would like to continue wound care. Also requesting referral to pain management. Will see back in 4-6 weeks. Discussed with patient and that is pain worsens or if there are signs of worsening infection that amputation will likely be the only option. PLAN: Follow up in in 4-6 weeks, wound care, pain management referral I spent 30 minutes in the visit, with more than 50% of the total [id number] time of the visit in counseling / coordination of care. documented in this encounterUniversity Hospitals Geauga [facility] Center11-16-2023 Miscellaneous Notes* Telephone Encounter - Minoo Boone LPN - 08/05/2023 5:12 PM EST Received 08/05/2023 from [facility]. Placed in provider's inbox for review. Route to [place] for scanning. documented in this encounterUniversity Hospitals Geauga Medical Center11-15-2023 History of Present illness Narrative* Dylan Martinez MD - 08/04/2023 9:54 AM EST Images from the original note were not included. August 04, 2023 Shilo Barriga Renetta [id number] Chief Complaint: right foot ulcers Subjective: ulcers about the same, less redness, he finished his antibiotics tomorrow PAST MEDICAL HISTORY Diagnosis Date Aortoiliac occlusive disease (HCC) Atherosclerotic heart disease of mentasta coronary artery without angina pectoris Carotid artery occlusion Carotid artery stenosis Cerebrovascular accident (CVA) (HCC) Coronary arteriosclerosis [place] 1998 Depressive disorder Disc disorder of lumbar region Diverticulitis of colon Diverticulitis of colon Essential tremor Gastroesophageal reflux disease Generalized anxiety disorder Hiatal hernia History of myocardial infarction Hyperlipidemia Hypertension Intervertebral disc disorder of lumbar region with myelopathy Irritable bowel syndrome Myocardial infarction (HCC) Old myocardial infarction Peripheral vascular disease (HCC) PERS HX COLONIC POLYPS Preoperative testing 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0 04/09/2021 10.2 01/07/2021 11.2 02/21/2020 11.6 11/07/2018 9.3 07/26/2017 8.7 10/12/2014 10.7 12/06/2013 9.6 Hemoglobin A1c (%) Date Value 04/13/2016 8.2 10/10/2015 8.4 Hemoglobin A1C (POCT) (%) Date Value 04/22/2023 12.0 11/23/2022 10.8 12/30/2021 9.8 09/18/2021 9.7 10/04/2020 11.0 Wound 07/16/23 0954 Diabetic Ulcer Toe D3, third Anterior;Right (Active) Properties Placement Date 07/16/23 Placement Time 0954 Location Toe D3, third Wound Number 1 Wound Approximate Age at First Assessment (Weeks) 6 weeks Primary Wound Type Diabetic Ulcer (BALES 3) Wound Location Orientation Anterior;Right Assessments 08/04/2023 8:54 AM Wound Image Site Assessment Black;Eschar;Intact;Sloughing Radha-Wound Assessment Intact;[place] Shape BALES 3 Wound Length (cm) 2 cm Wound Width (cm) 1.5 cm Wound Surface Area (cm^2) 3 cm^2 Wound Depth (cm) 0.1 cm Wound Volume (cm^3) 0.3 cm^3 Wound Healing % 38 Drainage Description Yellow Drainage Amount Moderate Odor None Treatments Cleansed;Mechanical Debridement Dressing Mesalt;Gauze Dressing Changed Changed Dressing Status Old drainage;Removed Wound Bed Slough (%) 75 % Wound Bed Eschar (%) 25 % Non-staged Wound Description Full thickness Active Orders Date Order Priority Status Authorizing Provider 08/04/23 0955 WOUND DRESSING CHANGE Routine Active Dylan Martinez MD - Frequency:: Daily - Type: Dry gauze - Cleanse wound with:: Soap and Water - Apply to wounds:: Mesalt 07/28/23 1049 WOUND DRESSING CHANGE Routine Active Dylan Martinez MD - Frequency:: Daily - Type: Dry gauze - Cleanse wound with:: Soap and Water - Apply to wounds:: Mesalt - Cover/secure wound with:: Roll gauze 07/22/23 1352 WOUND DRESSING CHANGE Routine Active Dylan Martinez MD - Frequency:: Daily - Type: Dry gauze - Apply to wounds:: Mesalt - Cover/secure wound with:: Roll gauze 07/16/23 1055 WOUND DRESSING CHANGE Routine Active Dylan Martinez MD - Frequency:: Daily - Type: Dry gauze - Cleanse wound with:: Soap and Water - Apply to wounds:: Mesalt Wound 07/16/23 0955 Diabetic Ulcer Toe D4, fourth Anterior;Right (Active) Properties Placement Date 07/16/23 Placement Time 0955 Location Toe D4, fourth Wound Number 2 Wound Approximate Age at First Assessment (Weeks) 6 weeks Primary Wound Type Diabetic Ulcer (BALES 3) Wound Location Orientation Anterior;Right Assessments 08/04/2023 8:54 AM Wound Image Site Assessment Black;Epithelialization;Sloughing;Intact Radha-Wound Assessment Intact;[place] Shape BALES 3 Wound Length (cm) 1.5 cm Wound Width (cm) 1.5 cm Wound Surface Area (cm^2) 2.25 cm^2 Wound Depth (cm) 0.1 cm Wound Volume (cm^3) 0.225 cm^3 Wound Healing % -73 Drainage Description Yellow Drainage Amount Moderate Odor None Treatments Cleansed;Mechanical Debridement Dressing Mesalt;Gauze Dressing Changed Changed Dressing Status Removed;Old drainage Wound Bed Slough (%) 50 % Wound Bed Eschar (%) 50 % Non-staged Wound Description Full thickness Active Orders Date Order Priority Status Authorizing Provider 08/04/23 0955 WOUND DRESSING CHANGE Routine Active Dylan Martinez MD - Frequency:: Daily - Type: Dry gauze - Cleanse wound with:: Soap and Water - Apply to wounds:: Mesalt 07/28/23 1049 WOUND DRESSING CHANGE Routine Active Dylan Martinez MD - Frequency:: Daily - Type: Dry gauze - Cleanse wound with:: Soap and Water - Apply to wounds:: Mesalt - Cover/secure wound with:: Roll gauze 07/22/23 1352 WOUND DRESSING CHANGE Routine Active Dylan Martinez MD - Frequency:: Daily - Type: Dry gauze - Apply to wounds:: Mesalt - Cover/secure wound with:: Roll gauze 07/16/23 1055 WOUND DRESSING CHANGE Routine Active Dylan Martinez MD - Frequency:: Daily - Type: Dry gauze - Cleanse wound with:: Soap and Water - Apply to wounds:: Mesalt ASSESSMENT/PLAN: 1. 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) - ICD9: 707.15, ICD10: L97.519 (primary diagnosis) Continue the same treatment for now. Debridement is not an option based on his vascular status and we will see if the Mesalt will clean the areas up. I do not believe that Santyl would be helpful given the dried necrotic tissue - WOUND DRESSING CHANGE 2. Type 2 diabetes mellitus with foot ulcer (CODE) (HCC) - ICD9: 250.80, 707.15, ICD10: E11.621 3. Peripheral vascular disease, unspecified (HCC) - ICD9: 443.9, ICD10: I73.9 Dylan Martinez MD Visit Codin documented in this encounterUniversity Hospitals Geauga [facility] Center11-15-2023 Instructions* Patient Instructions* Indira Paul RN - 08/04/2023 8:56 AM EST Wounds Evaluated by [facility] W[facility] Center: 1.Right 3rd toe 2.Right 4th toe ANESTHETIC ADMINISTRATION: 2% Lidocaine HCl applied topical as needed for dressing changes or debridement during visit: applied 08/04/2023 CLINIC INTERVENTIONS TODAY: Debridement/physician: mechanical debridement 08/04/2023 Consent signed; Dr. Martinez on 07/16/2023 [facility] Picture Taken:07/16/2023 DRESSING ORDERS: Wound:right 3rd and 4th toe Apply: Mesalt 4X4 gauze Secure with conform/kerlix/gauze and tape Change the dressing daily Change the dressing as needed for drainage, becoming soiled or noticeable irritation. Wash all wounds with soap and water or wound cleanser with dressing changes. Do not get dressing(s) wet. Should dressings become wet, change the dressing. Pt may shower, but no soaking in the tub. COMPRESSION NEEDED:N/A due to wound location OFFLOADING REQUIRED:Patient has shoe that is open to relieve pressure on the toes NUTRITION: Good nutritional supports wound healing. Maintain good blood sugar control if diabetic. Hydrate well to maintain good skin integrity. FOLLOW-UP APPOINTMENTS: Wound Center follow-up on: Wednesdays in July 202308/11 - 12:15 pm 08/18 - 9 am PENDING or ORDERED TESTIN07/16/2023 Xray's ordered for Right foot and Left thigh 07/16/2023 Hemoglobin A1C ordered Please get before next appointment Home Health Company (If Applicable): Supply Company and Last Order Date: 07/22/23 ordered through [employer] 07/16/2023 Supplies ordered through [employer] will be delivered to your home Other notes or details:07/16/2023 Antibiotics ordered today please picker box operator at your pharmacy Wound Center Information To reschedule or cancel an appointment call our offices directly at: or . To schedule ordered testing call: Central Scheduling at . Please bring any prescription medication(s) that you are placing on your wound(s) to each Wound Center appointment for application. Questions about your wound, please call the Wound Center: or (M-F 8 a.m.-4:00 p.m.). Should you develop a problem with your wound outside of normal business hours, please call your primary care physician or go directly to the ER. Report any signs of infection, such as fever, chills, nausea, increased drainage, increased swelling, any areas of increased warmth or redness around the wound, foul odor, or increased pain to the Wound Center immediately. If you are in need of financial assistance regarding your appointments or other services, please call to be connected with a Patient Esthetics Instructor. Please be advised wait times may be exceptionally long during this time. If Coflex TLC (XL or LITE) or double layer compression wrap was applied during your appointment, please understand it can be removed for ordered testing. This testing can include but is not limited to vascular exams, radiology exams or ultrasounds. In the event you are hospitalized or need specialized care and are unable to make it to your next appointment for a dressing change, the multi layer dressing should be completely removed. Do not leave the wrap on for any longer than 10 days. If you or your caregiver have questions or concerns, please call the Wound Center at or . Need supplies? Supplies are ordered at the time of your visit. As a wound center we will do our best to ensure supplies are ordered and delivered in a timely manner. Orders can only be placed if the patient has been seen recently in our offices and there are no pending insurance issues. Due to insurance limits, some supplies will only be eligible for monthly delivery. Please make every effort to let us know when you need supplies at the time of your visit. documented in this encounterUniversity Hospitals Geauga Medical Center11-14-2023 Miscellaneous Notes* Telephone Encounter - Vivian Couch RN - 08/03/2023 10:02 AM EST Received Request to Hold Anticoagulation letter from PCP via fax. Patient approved to hold the following medications: ASA 325mg - Required to be held for five days prior to procedure Xarelto - Required to be held for three days prior to the procedure Awaiting confirmation from Vascular for Plavix. Once received, office to contact patient with all information. * Telephone Encounter - Minoo Boone LPN - 08/02/2023 11:57 AM EST Form signed and faxed to Dr Jalloh office 07/30/2023 * Telephone Encounter - Gia Ball Ma - 07/29/2023 2:16 PM EST Patient will need approval to hold Plavix for 7 days, Xarelto for 3 days, and [id number] for 5 days prior to injection on 09/14/23. Per MAR, -Plavix is managed by V[facility] -Xarelto & Aspirin is managed by PCP Letters have been generated and forwarded to the above providers. Will await response. * Telephone Encounter - Gia Ball Ma - 07/29/2023 2:10 PM EST Patient contacted via telephone (spoke with ) to schedule injection. Patient has scheduled for: 09/14/23 Patient instructed to hold the following medication(s) prior to the procedure: - Xarelto for 3 days prior - Plavix for 7 days prior - ASA 325 for 5 days prior - Fish oil for 5 days prior - NSAIDS for 5 days prior - Water pill the morning of - Half the dosage of insulin the morning of Pre-procedure instructions reviewed over telephone and a list of instructions were sent via [employer] mailed to the patient's home. Patient verbalized understanding with no additional questions or concerns at this time. * Telephone Encounter - Quinn Gia Strange - 07/29/2023 1:47 PM EST Received a message from Dr. Jalloh that today's injection was cancelled. He has drainage on his foot and on ATB. Patient will need to reschedule once healed and ATB is completed. documented in this encounterUniversity Hospitals Geauga [facility] Center11-08-2023 History of Present illness Narrative* Dylan Martinez MD - 07/28/2023 10:48 AM EST Images from the original note were not included. July 28, 2023 Shilo Hathaway [id number] Chief Complaint: right foot ulcers Subjective: ulcer sl larger, less painful, some redness still there, he is about to finish his antibiotics PAST MEDICAL HISTORY Diagnosis Date Aortoiliac occlusive disease (HCC) Atherosclerotic heart disease of mentasta coronary artery without angina pectoris Carotid artery occlusion Carotid artery stenosis Cerebrovascular accident (CVA) (HCC) Coronary arteriosclerosis [place] 1998 Depressive disorder Disc disorder of lumbar region Diverticulitis of colon Diverticulitis of colon Essential tremor Gastroesophageal reflux disease Generalized anxiety disorder Hiatal hernia History of myocardial infarction Hyperlipidemia Hypertension Intervertebral disc disorder of lumbar region with myelopathy Irritable bowel syndrome Myocardial infarction (HCC) Old myocardial infarction Peripheral vascular disease (HCC) PERS HX COLONIC POLYPS Preoperative testing 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 Sleep apnea SOB (shortness of breath) 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) Type 2 diabetes mellitus (HCC) ALLERGIES Allergen Reactions Atorvastatin Myalgia Levofloxacin Unknown Metformin Diarrhea Objective: BP 128/65 Pulse 102 Temp (!) 35.9 C (96.6 F) (Temporal) Resp 16 CONSTITUTIONAL: No distress NEUROLOGIC/PSYCHIATRIC: Oriented to time, place & person LUNGS: normal respiratory effort, no rales noted INTEGUMENTARY: Wound - see wound assessment Hemoglobin A1C (%) Date Value 07/16/2023 9.8 02/24/2023 10.7 08/06/2022 9.0 04/09/2021 10.2 01/07/2021 11.2 02/21/2020 11.6 11/07/2018 9.3 07/26/2017 8.7 10/12/2014 10.7 12/06/2013 9.6 Hemoglobin A1c (%) Date Value 04/13/2016 8.2 10/10/2015 8.4 Hemoglobin A1C (POCT) (%) Date Value 04/22/2023 12.0 11/23/2022 10.8 12/30/2021 9.8 09/18/2021 9.7 10/04/2020 11.0 Wound 07/16/23 0954 Diabetic Ulcer Toe D3, third Anterior;Right (Active) Properties Placement Date 07/16/23 Placement Time 0954 Location Toe D3, third Wound Number 1 Wound Approximate Age at First Assessment (Weeks) 6 weeks Primary Wound Type Diabetic Ulcer (BALES 3) Wound Location Orientation Anterior;Right Assessments 07/28/2023 9:00 AM Wound Image Site Assessment Black;Eschar;Epithelialization;Granulation Radha-Wound Assessment [place];Intact Wound Length (cm) 2 cm Wound Width (cm) 1.5 cm Wound Surface Area (cm^2) 3 cm^2 Wound Depth (cm) 0.1 cm Wound Volume (cm^3) 0.3 cm^3 Wound Healing % 38 Drainage Description Yellow Drainage Amount Moderate Odor None Treatments Cleansed;Mechanical Debridement Dressing Mesalt;Dressing/Island Dressing Changed Changed Dressing Status New drainage;Old drainage;Removed Wound Bed Granulation (%) 50 % Wound Bed Epithelium (%) 25 % Wound Bed Eschar (%) 25 % Non-staged Wound Description Full thickness Active Orders Date Order Priority Status Authorizing Provider 07/28/23 1049 WOUND DRESSING CHANGE Routine Active Dylan Martinez MD - Frequency:: Daily - Type: Dry gauze - Cleanse wound with:: Soap and Water - Apply to wounds:: Mesalt - Cover/secure wound with:: Roll gauze 07/22/23 1352 WOUND DRESSING CHANGE Routine Active Dylan Martinez MD - Frequency:: Daily - Type: Dry gauze - Apply to wounds:: Mesalt - Cover/secure wound with:: Roll gauze 07/16/23 1055 WOUND DRESSING CHANGE Routine Active Dylan Martinez MD - Frequency:: Daily - Type: Dry gauze - Cleanse wound with:: Soap and Water - Apply to wounds:: Mesalt Wound 07/16/23 0955 Diabetic Ulcer Toe D4, fourth Anterior;Right (Active) Properties Placement Date 07/16/23 Placement Time 0955 Location Toe D4, fourth Wound Number 2 Wound Approximate Age at First Assessment (Weeks) 6 weeks Primary Wound Type Diabetic Ulcer (BALES 3) Wound Location Orientation Anterior;Right Assessments 07/28/2023 9:00 AM Wound Image Site Assessment Black;Eschar;Sloughing Radha-Wound Assessment Intact Shape BALES 3 Wound Length (cm) 1.5 cm Wound Width (cm) 1.5 cm Wound Surface Area (cm^2) 2.25 cm^2 Wound Depth (cm) 0.1 cm Wound Volume (cm^3) 0.225 cm^3 Wound Healing % -73 Drainage Description Yellow Drainage Amount Moderate Odor None Treatments Cleansed;Mechanical Debridement Dressing Mesalt;Dressing/Island Dressing Changed Changed Dressing Status New drainage;Old drainage;Removed Wound Bed Slough (%) 50 % Wound Bed Eschar (%) 50 % Non-staged Wound Description Full thickness Active Orders Date Order Priority Status Authorizing Provider 07/28/23 1049 WOUND DRESSING CHANGE Routine Active Dylan Martinez MD - Frequency:: Daily - Type: Dry gauze - Cleanse wound with:: Soap and Water - Apply to wounds:: Mesalt - Cover/secure wound with:: Roll gauze 07/22/23 1352 WOUND DRESSING CHANGE Routine Active Dylan Martinez MD - Frequency:: Daily - Type: Dry gauze - Apply to wounds:: Mesalt - Cover/secure wound with:: Roll gauze 07/16/23 1055 WOUND DRESSING CHANGE Routine Active Dylan Martinez MD - Frequency:: Daily - Type: Dry gauze - Cleanse wound with:: Soap and Water - Apply to wounds:: Mesalt ASSESSMENT/PLAN: 1. 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) - ICD9: 707.15, ICD10: L97.519 (primary diagnosis) Continue the same treatment and finish his antibiotics, if the wound is not improving, HBO may be considered as a limb salvage situation, though his vascular disease is so severe that response may belimited - WOUND DRESSING CHANGE 2. Type 2 diabetes mellitus with foot ulcer (CODE) (HCC) - ICD9: 250.80, 707.15, ICD10: E11.621 3. Peripheral vascular disease, unspecified (HCC) - ICD9: 443.9, ICD10: I73.9 Dylan Martinez MD Visit Codin documented in this encounterUniversity Hospitals Geauga Medical Center11-08-2023 Instructions* Patient Instructions* Tracy Ch LPN - 07/28/2023 10:01 AM EST Wounds Evaluated by [facility] Wound Center: 1.Right 3rd toe 2.Right 4th toe ANESTHETIC ADMINISTRATION: 2% Lidocaine HCl applied topical as needed for dressing changes or debridement during visit: applied 07/28/2023 CLINIC INTERVENTIONS TODAY: Debridement/physician: mechanical debridement 07/28/2023 Consent signed; Dr. Martinez on 07/16/2023 [employer] Picture Taken:07/16/2023 DRESSING ORDERS: Wound:right 3rd and 4th toe Apply: Mesalt 4X4 gauze Secure with conform/kerlix/gauze and tape Change the dressing daily Change the dressing as needed for drainage, becoming soiled or noticeable irritation. Wash all wounds with soap and water or wound cleanser with dressing changes. Do not get dressing(s) wet. Should dressings become wet, change the dressing. Pt may shower, but no soaking in the tub. COMPRESSION NEEDED:N/A due to wound location OFFLOADING REQUIRED:Patient has shoe that is open to relieve pressure on the toes NUTRITION: Good nutritional supports wound healing. Maintain good blood sugar control if diabetic. Hydrate well to maintain good skin integrity. FOLLOW-UP APPOINTMENTS: Wound Center follow-up on: Wednesdays in July 202308/04 - 9:30 am 08/11 - 12:15 pm 08/18 - 9 am PENDING or ORDERED TESTIN07/16/2023 Xray's ordered for Right foot and Left thigh 07/16/2023 Hemoglobin A1C ordered Please get before next appointment Home Health Company (If Applicable): Supply Company and Last Order Date: 07/22/23 ordered through [employer] 07/16/2023 Supplies ordered through [employer] will be delivered to your home Other notes or details:07/16/2023 Antibiotics ordered today please picker box operator at your pharmacy Wound Center Information To reschedule or cancel an appointment call our offices directly at: or . To schedule ordered testing call: Central Scheduling at . Please bring any prescription medication(s) that you are placing on your wound(s) to each Wound Center appointment for application. Questions about your wound, please call the Wound Center: or (M-F 8 a.m.-4:00 p.m.). Should you develop a problem with your wound outside of normal business hours, please call your primary care physician or go directly to the ER. Report any signs of infection, such as fever, chills, nausea, increased drainage, increased swelling, any areas of increased warmth or redness around the wound, foul odor, or increased pain to the Wound Center immediately. If you are in need of financial assistance regarding your appointments or other services, please call to be connected with a Patient Esthetics Instructor. Please be advised wait times may be exceptionally long during this time. If Coflex TLC (XL or LITE) or double layer compression wrap was applied during your appointment, please understand it can be removed for ordered testing. This testing can include but is not limited to vascular exams, radiology exams or ultrasounds. In the event you are hospitalized or need specialized care and are unable to make it to your next appointment for a dressing change, the multi layer dressing should be completely removed. Do not leave the wrap on for any longer than 10 days. If you or your caregiver have questions or concerns, please call the Wound Center at or . Need supplies? Supplies are ordered at the time of your visit. As a wound center we will do our best to ensure supplies are ordered and delivered in a timely manner. Orders can only be placed if the patient has been seen recently in our offices and there are no pending insurance issues. Due to insurance limits, some supplies will only be eligible for monthly delivery. Please make every effort to let us know when you need supplies at the time of your visit. documented in this encounterUniversity Hospitals [facility]11-06-2023 Miscellaneous Notes* Telephone Encounter - Skye Rendon - 07/26/2023 2:39 PM EST Left message for patient * Telephone Encounter - Danitza Card RN - 07/21/2023 2:49 PM EDT Called patient at [phone]. Left message on voicemail for patient to return call for message from provider. * Telephone Encounter - Paulina Severino MD - 07/21/2023 2:32 PM EDT He can increase the dose little by little. Typically surgeons favor the A1c to be below 8 for elective surgery I would hope we could get it below 9. Paulina Severino MD * Telephone Encounter - Danitza Card RN - 07/20/2023 4:08 PM EDT Called patient. Patient states he will schedule with Dr. Moran. Patient said that 20 units of Basaglar a day decreased his A1C. He has lost weight and only eats one meal a day because he is in bed a lot with the foot injury. Patient voiced that he does not agree with increasing the Basaglar. Then he said that he will try the 32 units. He said he is afraid of bottoming out though. Patient states his average sugar is 258 and thought if he stays under 300 he can get his eyes done.Patient wants to get his cataracts done by the end of the year since he paid in advance. * Telephone Encounter - Paulina Severino MD - 07/20/2023 8:11 AM EDT The EKG does show some change from prior. He's seen Dr Moran in the past. Recommend cardiology follow up. May need to consider what's going on with his heart arteries. Also remind him to bump up his Basaglar long acting insulin to 32 units daily as discussed at appt yesterday Consult order was placed on yesterday's prog note. Paulina Severino MD documented in this encounterUniversity Hospitals [facility] Center11-01-2023 History of Present illness Narrative* Pamela Hills MD - 07/21/2023 9:50 AM EDT July 21, 2023 Back pain and leg pain Subjective HISTORY AND PHYSICAL Shilo Hathaway 72 year old man with low back pain radiating to the right leg and right foot . Pain in the lower back as well as foot pain ,which is also swollen He is getting injection with dr Jalloh ,for lumbar radiculopathy Neurontin 600 mg three times a day He is trying to get more control of blood sugar Open wounds between toes Review of Systems Review of Systems Constitutional: Negative Eyes: Negative Hent Positive for Hearing Loss Cardiovascular: Negative Respiratory: Negative GI: Negative : Negative Endocrine: Negative Musculoskeletal Positive for Back Pain Integumentary: Negative Heme/Lymph: Negative Allergy/Immunologic: Negative Neurologic Positive for Numbness/Tingling Psychiatric Positive for Irritability Patient's Review of Systems has been reviewed with the patient and updated as appropriate. Objective 07/21/23 1005 BP: 148/60 BP Site: Left Arm BP Position: Sitting Pulse: 114 Resp: 16 SpO2: 93% Physical Exam EXAM: NOSE: no erythema or exudate PHARYNX: normal, no erythema NECK: supple and no adenopathy CHEST: Normal chest wall exam N Neurological Exam MENTAL STATUS: Alert, oriented to person, place and time and Follows commands CRANIAL NERVES: EOM's intact, Extraocular movements intact, Facial sensation intact, Face symmetric, No facial droop or ptosis, No dysarthria, and hearing loss in both ears MOTOR: No drift and Normal tone MOTOR STRENGTH: right lower extremity with right hip flexor and weakness of ankle dorsiflexion 4 /5,ankle dorsiflexion 4+ REFLEXES: asymmetrical knee reflexes and asymmetrical ankle reflexes SENSATION: Diminished pinprick and proprioception distally in the right foot S/p LEFT AKA COORDINATION: Finger-to- nose-finger intact bilaterally GAIT: CANNOT TALK PAST MEDICAL HISTORY Diagnosis Date Aortoiliac occlusive disease (HCC) Atherosclerotic heart disease of [place]asta coronary artery without angina pectoris Carotid artery occlusion Carotid artery stenosis Cerebrovascular accident (CVA) ([facility]) Coronary [place]iosclerosis [place] 1998 Depressive disorder Disc disorder of lumbar region Diverticulitis of colon Diverticulitis of colon Essential tremor Gastroesophageal reflux disease Generalized anxiety disorder Hiatal hernia History of myocardial infarction Hyperlipidemia Hypertension Intervertebral disc disorder of lumbar region with myelopathy Irritable bowel syndrome Myocardial infarction (HCC) Old myocardial infarction Peripheral vascular disease ([facility]) PERS HX COLONIC POLYPS Preoperative testing 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 20 tablet 0 insulin glargine (BASAGLAR KWIKPEN U-100 INSULIN) 100 unit/mL (3 mL) Inject 32 Units subcutaneouslydaily at bedtime. Insulin Voca, Disposable, (PEN NEEDLE) 32 gauge x 5/32 Inject 1 Each subcutaneously every 24 hours. Give with each insulin administration. 100 Each 3 insulin lispro (HUMALOG KWIKPEN) 100 unit/mL Inject 18 Units subcutaneously three times daily before meals. Plus additional 2 units if glucose is over 250. 5 Each 2 clopidogrel (PLAVIX) 75 mg tablet Take 1 tablet by mouth once daily. 90 tablet 3 escitalopram oxalate (LEXAPRO) 10 mg tablet Take 1 tablet by mouth once daily. 90 tablet 3 tamsulosin (FLOMAX) 0.4 mg Take 1 capsule by mouth once daily 30 capsule 8 fenofibrate nanocrystallized (TRICOR) 145 mg tablet Take 1 tablet by mouth once daily. 90 tablet 3 lisinopril 2.5 mg tablet Take 1 tablet by mouth once daily. 30 tablet 11 metoprolol succinate ER (TOPROL XL) 25 mg 24 hr tablet Take 1 tablet by mouth once daily. 30 [id number] spironolactone (ALDACTONE) 25 mg tablet Take 1 tablet by mouth once daily. 30 tablet 11 rivaroxaban (XARELTO) 20 mg tablet Take 1 tablet by mouth daily with dinner. 30 tablet 11 rosuvastatin (CRESTOR) 20 mg tablet Take 1 tablet by mouth once daily. 90 tablet 3 flash glucose sensor (FREESTYLE CL 14 DAY SENSOR) kit Apply sensor to arm every 14 days. 6 Each 3 flash glucose scanning reader (FREESTYLE CL 14 DAY READER) 1 Each once daily. 1 Each 0 TRUE METRIX GLUCOSE TEST STRIP test strip Use to test glucose 4 times daily, as directed. DX: E11.42, E11.65, Z79.4 400 Strip 3 UNIFINE PENTIPS PLUS 32 gauge x 5/32 Use for insulin pen injections 5 times daily, as directed. DX: E11.42, E11.65, Z79.4 500 Each 3 lancets (UNILET SUPER THIN LANCETS) 30 gauge Use to test glucose 4 times daily, as directed. DX: E11.42, E11.65, Z79.4 400 Each 3 ACETAMINOPHEN (TYLENOL ORAL) Take 1-2 tablets by mouth every 6 hours as needed. aspirin, enteric coated (ASPIRIN, ENTERIC COATED) 325 mg EC tablet Take 325 mg by mouth once daily. gabapentin (NEURONTIN) 600 mg tablet Take 1 tablet by mouth four times daily for 30 days. 120 tablet 0 diclofenac (VOLTAREN) 0.1 % ophthalmic solution Use 1 Drop in the left eye twice daily. (Patient not taking: Reported on 06/09/2023) ofloxacin (OCUFLOX) 0.3 % ophthalmic solution (Patient not taking: Reported on 06/09/2023) prednisoLONE acetate (PRED FORTE) 1 % ophthalmic suspension (Patient not taking: Reported on 06/09/2023) benzonatate (TESSALON PERLE) 100 mg capsule Take 1 capsule by mouth three times daily as needed. (Patient not taking: Reported on 06/29/2023) 20 capsule 0 MULTIVIT &MINERALS/FERROUS FUM (MULTI VITAMIN ORAL) Take by mouth once daily. (Patient not taking: Reported on 07/21/2023) No current facility-administered medications for this visit. Social Connections: Not on file Acute right-sided low back pain with right-sided sciatica Spinal stenosis of lumbar region with neurogenic claudication Assessment and Plan PATIENT IS 72 years old man with lumbar radiculopathy on top of neuropathy Due to poorly controlled diabetes . He is taking gabapentin for neuropathy ,but thinks the dose is not high enough to control his pain We talked about increasing the dose to 2400 mg /day for neuropathic pain He also has appointment in pain clinic for epidural injections Office Visit on 07/21/23 VITAMIN B12 BLOOD TSH BLD MAGNESIUM BLD METHYLMALONIC ACID VITAMIN B1 (THIAMINE), WHOLE BLOOD CK CREATINE KINASE CONSULT TO NEUROLOGY Total time in minutes spent with patient, reviewing records, labs, imaging, formulating plan, and documentin minutes with more than 50% of the time spent in patient education/counselling/coordinating care with the patient and /or family. July 21, 2023 Pamela Hills M.D. [facility] Neurology documented in this encounterUniversity Hospitals [facility]10-30-2023 History of Present illness Narrative* Paulina Severino MD - 07/19/2023 3:48 PM EDT CHIEF COMPLAINT Patient presents with: Follow Up: Feet, toes HISTORY OF PRESENT ILLNESS Shilo Hathaway is a 72 year old male who presents here today for follow up of feet/toes. I last saw this patient on 04/22/2023. Right Foot - Right foot struck the wheel chair while he swinging over to get into bed. - Seen by Vascular Surgery on 07/13/2023. - Pt does not have a revasculazation option remaining and surgical amputation was his his best options. Pt did not want amputation therefor he was referred to wound care - Seen by wound care on 07/16/2023. - prog note indicates Rx for doxycycline, pt notes that he has not been able to get medication frompharmacy yet. (It does now appear that the Rx was sent at visit. - Hyperbaric oxygen chamber 6 days a week for 90 minutes was advised for limb salvage. Diabetes - Currently managed on Insulin Glargine 25 units daily at bedtime and Humalog 18 units TID before meals (plus additional 2 units if glucose is over 250). - A1C is 9.8% as of 07/16/2023 Health Maintenance Due for Hep C Screening Due for Hep B Vaccine (1 of 3-Risk 3- dose series) Due for RSV Vaccine Due for Advanced Directive Discussion Due for Diabetic Foot Exam Due for Influenza Vaccine Due for Covid-19 Vaccine (2022- season) Labs reviewed. Past medical history, appointments, medications, allergies reviewed. REVIEW OF SYSTEMS General: Feels well, no weight changes, fevers or chills. HEENT: No sinus congestion, earache, sore throat. Cardiac: No chest pain, palpitations Resp: No cough, wheeze, shortness of breath GI: No reflux symptoms, food intolerance, bowel changes. : No urinary frequency, dysuria. MS: No pain or joint complaints. Skin: +Open wound of the right foot, osteomyelitis +right foot pain PAST MEDICAL HISTORY PAST MEDICAL HISTORY Diagnosis Date Aortoiliac occlusive disease ([facility]) Atherosclerotic heart disease of mentasta coronary artery without angina pectoris Carotid artery occlusion Carotid artery stenosis Cerebrovascular accident (CVA) ([facility]) Coronary arteriosclerosis [place] 1998 Depressive disorder Disc disorder of lumbar region Diverticulitis of colon Diverticulitis of colon Essential tremor Gastroesophageal reflux disease Generalized anxiety disorder Hiatal hernia History of myocardial infarction Hyperlipidemia Hypertension Intervertebral disc disorder of lumbar region with myelopathy Irritable bowel syndrome Myocardial infarction ([facility]) Old myocardial infarction Peripheral vascular disease ([facility]) PERS HX COLONIC POLYPS Preoperative testing 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 Heart: Regular rate and rhythm. Fast. Normal S1 and S2. No murmurs, rubs, or gallops. Lungs: Clear to auscultation bilaterally. No respiratory distress. No wheezes, rales, or rhonchi. Abdomen: Soft, non-tender, no distention. Extremities: R foot with masceration an dskin breakdown teween 3rd and 4th toes. No edema. Not wet. L AKA. 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 Stable common and external iliac arteries. * Occluded right axillofemoral bypass and femorofemoral bypass as noted on 2021. Maintaining opacification of the left subclavian bypass. * RLE: Trickle collateral flow at the common femoral bifurcation from pelvic collaterals. Small lumen of the SFA and popliteal, trickle but maintained flow below the knee. * LLE: Trickle collateral flow to the common femoral bifurcation. Small lumen of the SFA, trickle slow flow proximally, interval above the knee amputation. NON VASCULAR: 1. No acute intra-abdominal or pelvic findings. 2. Osteomyelitis in the head of the first right metatarsal. 3. Cortical irregularity of the femoral stump suspicious for osteomyelitis with a 4.7 cm loculated fluid collection. Other chronic findings, as above. 07/19/2023 XR Foot General 3V AP/LAT/OBL Right impression: Osteopenia without definite signs of osteomyelitis. 07/16/2023 XR Femur General 2V AP/LAT Left: In process 06/23/2023 US Arterial PVR Lower Impression: RIGHT SIDE Resting right ankle brachial index: 0.30 Right toe brachial index: 0.00 Abnormal ankle brachial index at rest diagnostic of peripheral artery disease. Abnormal toe brachial index at rest is evidence of peripheral artery disease. Right ankle: Severe disease at rest. Right iliofemoral disease. Right infrapopliteal disease. Right small vessel disease 07/19/2023 ECG Complete Impression: SINUS TACHYCARDIA INFERIOR T WAVE ABNORMALITY ABNORMAL ECG WHEN COMPARED WITH ECG OF 26-AUG-2001 16:00, VENT. RATE HAS INCREASED BY 39 BPM NON-SPECIFIC CHANGE IN ST SEGMENT IN INFERIOR LEADS T WAVE INVERSION NOW EVIDENT IN INFERIOR LEADS Assessment/Plan (Z23) Encounter for immunization (primary encounter diagnosis) Comment: Per health maintenance Plan: INFLUENZA VACCINE, PRSV FREE, AGE 65+ YR, HIGH DOSE, QUADRIVALENT (FLUZONE HIGH-DOSE), [employer] COVID-19 VACCINE ( SEASON) AGE 12+ YR, BASIC METABOLIC PNL, CBC (R00.0) Tachycardia Comment: Present during physical exam. Will obtain EKG today in office Plan: ECG COMPLETE; results as above (I50.20) HFrEF (heart failure with reduced ejection fraction) ([facility]) Comment: Stable Plan: Continue current regimen (I73.9) Peripheral vascular disease (HCC) Comment: S/P L AKA amputation. Ongoing wound of the right foot. Amputation was discussed, pt does not want amputation. Therefor he is following with wound care. Hyperbaric oxygen chamber for limb salvage was discussed, pt does not like this option. Plan: Continue to follow with vascular surgery Continue to follow with wound care. Reordered doxycycline (VIBRA-TABS) 100 mg tablet Requested Prescriptions Signed Prescriptions Disp Refills doxycycline (VIBRA-TABS) 100 mg tablet 20 tablet 0 Sig: Take 1 tablet by mouth two times a day for 10 days. RTO: 6 months Scribe Attestation: By signing my name below, ITimbo, attest that this documentation has been prepared under the direction and in the presence of Manpreet Severino M.D. Electronically Signed: Neftali Wall. July 19, 2023 3:48 PM Provider Attestation: Paulina Farmer MD, personally performed the services described in this documentation. All medical record entries made by the scribe were at my direction and in my presence. I have reviewed the chart and discharge instructions (if applicable), and agree that the record reflects my personal performance and is accurate and complete. Electronically Signed: Paulina Severino MD July 20, 2023 8:06AM documented in this encounterUniversity Hospitals [facility]10-27-2023 History of Present illness Narrative* Dylan Martinez MD - 07/16/2023 1:07 PM EDT Images from the original note were not included. July 16, 2023 Shilo Barriga Renetta [id number] Chief Complaint: right foot ulcers Subjective: Patient presents to the wound center with ulceration of the third and fourth toe on theright foot. The patient has longstanding vascular disease and is diabetic. He has had multiple attempts at bypass procedures, with attempted aortic bypass being done, axillary femoral bypass being done and revised and he has eventually had to have a left above-knee amputation. He has seen vascular surgery and there are no other interventions available in the right leg. His PVR is quite low on theright leg. There is also has been present for several weeks. It happened from initially a trauma. He also has poorly controlled diabetes. He was offered above-knee amputation for pain relief but the patient declines as this would be his second leg. PAST MEDICAL HISTORY Diagnosis Date Aortoiliac occlusive disease (HCC) Atherosclerotic heart disease of mentasta coronary artery without angina pectoris Carotid artery occlusion Carotid artery stenosis Cerebrovascular accident (CVA) ([facility]) Coronary arteriosclerosis [place] 1998 Depressive disorder Disc disorder of lumbar region Diverticulitis of colon Diverticulitis of colon Essential tremor Gastroesophageal reflux disease Generalized anxiety disorder Hiatal hernia History of myocardial infarction Hyperlipidemia Hypertension Intervertebral disc disorder of lumbar region with myelopathy Irritable bowel syndrome Myocardial infarction (HCC) Old myocardial infarction Peripheral vascular disease (HCC) PERS HX COLONIC POLYPS Preoperative testing 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 Sleep apnea SOB (shortness of breath) Thrombosis of right femoral-femoral bypass graft ([facility]) Type 2 diabetes mellitus ([facility]) PAST SURGICAL HISTORY Procedure Laterality Date AMPUTATION OF LOWER LEG Left 05/05/2022 Left above knee amputation ANGIOPLASTY 1998, 2004, 2013 CAROTID ENDARTERECTOMY Bilateral right 02/2013, left 08/2001 COLONOSCOPY FLX DX W/COLLJ SPEC WHEN PFRMD 2000 Colonoscopy with polypectomies COLONOSCOPY SCREENING 07/04/2021 tubular adenomas x5, severe diverticulosis ESOPHAGOGASTRODUODENOSCOPY TRANSORAL DIAGNOSTIC 2000 EGD reportedly normal EXPLORATION GROIN Left 04/29/2018 Left Groin Exploration, Thrombectomy of Left Limb of Axillo-Bifemoral Bypass, Revision of Left Femoral Anastomosis INSERT INTRACORONARY STENT 1998 RCA LAPAROSCOPY SURG CHOLECYSTECTOMY 1997 Cholecystectomy, lap LEFT HEART CATH,PERCUTANEOUS 1998 Cardiac cath, L heart PAST SURGICAL HISTORY OF Carotid stenosis PAST SURGICAL HISTORY OF Bilateral 12/25/2016 Axillo bifem bypass PAST SURGICAL HISTORY OF ureter removal STENT PLACEMENT 1998 BMS RCA STENT PLACEMENT 11/2013 MARVIN RCA Tobacco Use: Medium Risk (07/16/2023) Patient History Smoking Tobacco Use: Former Smokeless Tobacco Use: Never Passive Exposure: Not on file Alcohol Use: Not on file ALLERGIES Allergen Reactions Atorvastatin Myalgia Levofloxacin Unknown Metformin Diarrhea Review of Systems: GENERAL: No fevers. EYES: no vision changes EENT: no hoarseness RESPIRATORY: Negative for cough or shortness of breath CARDIOVASCULAR: Negative CHF or palpitations MUSCULOSKELETAL: Negative for muscle pain and weakness SKIN: Negative for lesions, rash, and itching. PSYCH: Negative for anxiety Objective: PHYSICAL EXAM Physical Exam Performed BP 156/78 (BP Site: Right Arm, BP Position: Sitting, BP Cuff Size: Large Adult) Pulse 110 Temp 36.6 C (97.9 F) Resp 18 Ht 162.6 cm (5' 4) Wt 72.6 kg (160 lb) BMI 27.46 kg/m CONSTITUTIONAL: No distress NEUROLOGIC/PSYCHIATRIC: Oriented to time, place & person LUNGS: normal respiratory effort, no rales noted INTEGUMENTARY: Wound - see wound assessment VASCULAR: weak monophasic DP heard, no p[pulse felt, no PT heard Hemoglobin A1C (%) Date Value 02/24/2023 10.7 08/06/2022 9.0 04/09/2021 10.2 01/07/2021 11.2 02/21/2020 11.6 11/07/2018 9.3 07/26/2017 8.7 10/12/2014 10.7 12/06/2013 9.6 Hemoglobin A1c (%) Date Value 04/13/2016 8.2 10/10/2015 8.4 Hemoglobin A1C (POCT) (%) Date Value 04/22/2023 12.0 11/23/2022 10.8 12/30/2021 9.8 09/18/2021 9.7 10/04/2020 11.0 Wound 07/16/23 0954 Diabetic Ulcer Toe D3, third Anterior;Right (Active) Properties Placement Date 07/16/23 Placement Time 0954 Location Toe D3, third Wound Number 1 Wound Approximate Age at First Assessment (Weeks) 6 weeks Primary Wound Type Diabetic Ulcer (BALES 3) Wound Location Orientation Anterior;Right Assessments 07/16/2023 9:49 AM Wound Image Site Assessment Black;Eschar;Intact;Sloughing Radha-Wound Assessment Indurated;[place] Shape BALES 3 Wound Length (cm) 2.1 cm Wound Width (cm) 2.3 cm Wound Surface Area (cm^2) 4.83 cm^2 Wound Depth (cm) 0.1 cm Wound Volume (cm^3) 0.483 cm^3 Drainage Description Yellow Drainage Amount Moderate Odor None Treatments Cleansed;Mechanical Debridement Dressing [place];Gauze;Tape Dressing Changed Changed Dressing Status Removed;Old drainage Wound Bed Slough (%) 50 % Wound Bed Eschar (%) 50 % Non-staged Wound Description Full thickness Active Orders Date Order Priority Status Authorizing Provider 07/16/23 1055 WOUND DRESSING CHANGE Routine Active Dylan Martinez MD - Frequency:: Daily - Type: Dry gauze - Cleanse wound with:: Soap and Water - Apply to wounds:: [place] Wound 07/16/23954 Diabetic Ulcer Toe D4, fourth Anterior;Right (Active) Properties Placement Date 07/16/23 Placement Time 0955 Location Toe D4, fourth Wound Number 2 Wound Approximate Age at First Assessment (Weeks) 6 weeks Primary Wound Type Diabetic Ulcer (BALES 3) Wound Location Orientation Anterior;Right Assessments 07/16/2023 9:49 AM Wound Image Site Assessment Black;Eschar;Intact;Sloughing Radha-Wound Assessment Intact;[place] Shape BALES 3 Wound Length (cm) 1 cm Wound Width (cm) 1.3 cm Wound Surface Area (cm^2) 1.3 cm^2 Wound Depth (cm) 0.1 cm Wound Volume (cm^3) 0.13 cm^3 Drainage Description Yellow Drainage Amount Moderate Odor None Treatments Cleansed;Mechanical Debridement Dressing [place];Gauze;Tape Dressing Changed Changed Dressing Status Old drainage;Removed Wound Bed Slough (%) 60 % Wound Bed Eschar (%) 40 % Non-staged Wound Description Full thickness Active Orders Date Order Priority Status Authorizing Provider 07/16/23 1055 WOUND DRESSING CHANGE Routine Active Dylan Martinez MD - Frequency:: Daily - Type: Dry gauze - Cleanse wound with:: Soap and Water - Apply to wounds:: [place] PROCEDURE: Wound 1 and 2 Indication: new wounds The wound was interrogated with the [employer] Camera System utilizing chalo light. The room was darkened for better visualization. Black draping was used to reduce background clutter as needed. Review of the ulcer shows: RED color(indicates bacteria present): YES CYAN color(indicates pseudomonas present): NO YELLOW color(indicates slough): NO The camera system was used to help guide debridement: NO Wound care treatment modified by this image: antibiotics given Pictures were added to the record ASSESSMENT/PLAN: 1. 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) - ICD9: 707.15, ICD10: L97.519 (primary diagnosis) Patient presents with diabetic foot ulcer on the right foot, complicated by severe peripheral arterial disease. There looks to be some infection present from the [facility] imaging and I will give him a course of doxycycline. A recent CTA of the leg did show possible osteomyelitis in the foot, as well as in the left above-knee amputation stump and I will get plain x-rays of both these areas to further delineate this. I feel this is a Bales 3 ulcer and hyperbaric oxygen may be required for limbsalvage. We will start treating the area with Mesalt and I will see him back in 1 week - WOUND DRESSING CHANGE - XR FOOT GENERAL 3V AP/LAT/OBL RIGHT 2. Type 2 diabetes mellitus with foot ulcer (CODE) (HCC) - ICD9: 250.80, 707.15, ICD10: E11.621 - Uncontrolled - discussed importance of sugar control with him in regards to healing - HGB A1C 3. Peripheral vascular disease, unspecified (HCC) - ICD9: 443.9, ICD10: I73.9 Vascular notes reviewed, no further intervention is an option 4. Abnormal radiographic examination - ICD9: 793.99, ICD10: R93.89 I will get x-ray of the left AKA based on CT results, there is no wound or inflammation seen in this area - XR FEMUR GENERAL 2V AP/LAT LEFT Dylan Martinez MD Visit Codin-25, [id number] documented in this encounterUniversity Hospitals [facility]10-27-2023 Instructions* Patient Instructions* Indira Paul RN - 07/16/2023 9:58 AM EDT Wounds Evaluated by [facility]: 1.right 3rd toe (NEW WOUND) Right 4th toe (NEW WOUND) ANESTHETIC ADMINISTRATION: 2% Lidocaine HCl applied topical as needed for dressing changes or debridement during visit:[id number]/16/2023 CLINIC INTERVENTIONS TODAY: Debridement/physician: mechanical debridement 07/16/2023 Consent signed; Dr. Martinez on 07/16/2023 Mole[facility] Picture Taken:07/16/2023 DRESSING ORDERS: Wound:right 3rd and 4th toe Apply:Mesalt 4X4 gauze Secure with conform/kerlix/gauze and tape Change the dressing daily Change the dressing as needed for drainage, becoming soiled or noticeable irritation. Wash all wounds with soap and water or wound cleanser with dressing changes. Do not get dressing(s) wet. Should dressings become wet, change the dressing. Pt may shower, but no soaking in the tub. COMPRESSION NEEDED:N/A due to wound location OFFLOADING REQUIRED:Patient has shoe that is open to relieve pressure on the toes NUTRITION: Good nutritional supports wound healing. Maintain good blood sugar control if diabetic. Hydrate well to maintain good skin integrity. FOLLOW-UP APPOINTMENTS: Wound Center follow-up on: July @1:00pm PENDING or ORDERED TESTIN07/16/2023 Xray's ordered for Right foot and Left thigh 07/16/2023 Hemoglobin A1C ordered Please get before next appointment Home Health Company (If Applicable): Supply Company and Last Order Date:07/16/2023 Supplies ordered through [employer] will be delivered to your home Other notes or details:07/16/2023 Antibiotics ordered today please picker box operator at your pharmacy Wound Center Information To reschedule or cancel an appointment call our offices directly at: or . To schedule ordered testing call: Central Scheduling at . Please bring any prescription medication(s) that you are placing on your wound(s) to each Wound Center appointment for application. Questions about your wound, please call the Wound Center: or (M-F 8 a.m.-4:00 p.m.). Should you develop a problem with your wound outside of normal business hours, please call your primary care physician or go directly to the ER. Report any signs of infection, such as fever, chills, nausea, increased drainage, increased swelling, any areas of increased warmth or redness around the wound, foul odor, or increased pain to the Wound Center immediately. If you are in need of financial assistance regarding your appointments or other services, please call to be connected with a Patient Esthetics Instructor. Please be advised wait times may be exceptionally long during this time. If Coflex TLC (XL or LITE) or double layer compression wrap was applied during your appointment, please understand it can be removed for ordered testing. This testing can include but is not limited to vascular exams, radiology exams or ultrasounds. In the event you are hospitalized or need specialized care and are unable to make it to your next appointment for a dressing change, the multi layer dressing should be completely removed. Do not leave the wrap on for any longer than 10 days. If you or your caregiver have questions or concerns, please call the Wound Center at or . Need supplies? Supplies are ordered at the time of your visit. As a wound center we will do our best to ensure supplies are ordered and delivered in a timely manner. Orders can only be placed if the patient has been seen recently in our offices and there are no pending insurance issues. Due to insurance limits, some supplies will only be eligible for monthly delivery. Please make every effort to let us know when you need supplies at the time of your visit. documented in this encounterUniversity Hospitals Ge[facility] Center10-24-2023 History of Present illness Narrative* Anne Villalpando MD - 07/13/2023 11:48 AM EDT Images from the original note were not included. Shilo Hathaway 72 year old male here for follow-up PAD He has undergone the following procedure: - Attempted ABF -- 2017 DJW - R Ax- fem / R fem- L fem bypass with B DRESS FINISHER endart -- 2016 DJW - L groin exploration, LLE graft thrombectomy -- 2016 JZ - L groin exploration with thrombectomy of fem-fem bypass -- 2017 DJW - L ax- profunda to R profunda bypass w/ redo groins -- LM 2021 - L AKA -- CB 2021 SUBJECTIVE: Mr. Hathaway returns to the office for routine follow-up of his PAD. He has an open wound on his R foot, has been treating at home with dry dressing. Has significant pain, greater then 10 in his foot. Has a back procedure scheduled next month. Recently had a CTA - official read pending. Ax-fem portion of graft is patent, fem-fem bypass is occluded. On asa, plavix, xarelto, statin. +CAD, HLD, HTN, [place] (1998), DM, Carotid ASO Former smoker - quit in 1998. TESTING: PVR done 06/23/23, results: R МАРИЯ 0.30/TBI 0.00 PVR done 12/15/22, results: R МАРИЯ 0.90/TBI 0.53 PAST MEDICAL HISTORY Diagnosis Date Aortoiliac occlusive disease (HCC) Atherosclerotic heart disease of mentasta coronary artery without angina pectoris Carotid artery occlusion Carotid artery stenosis Cerebrovascular accident (CVA) ([facility]) Coronary arteriosclerosis [place] 1998 Depressive disorder Disc disorder of lumbar region Diverticulitis of colon Diverticulitis of colon Essential tremor Gastroesophageal reflux disease Generalized anxiety disorder Hiatal hernia History of myocardial infarction Hyperlipidemia Hypertension Intervertebral disc disorder of lumbar region with myelopathy Irritable bowel syndrome Myocardial infarction (HCC) Old myocardial infarction Peripheral vascular disease (HCC) PERS HX COLONIC POLYPS Preoperative testing 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 Sleep apnea SOB (shortness of breath) Thrombosis of right femoral-femoral bypass graft ([facility]) Type 2 diabetes mellitus ([facility]) PAST SURGICAL HISTORY Procedure Laterality Date AMPUTATION OF LOWER LEG Left 05/05/2022 Left above knee amputation ANGIOPLASTY 1998, 2004, 2013 CAROTID ENDARTERECTOMY Bilateral right 02/2013, left 08/2001 COLONOSCOPY FLX DX W/COLLJ SPEC WHEN PFRMD 2000 Colonoscopy with polypectomies COLONOSCOPY SCREENING 07/04/2021 tubular adenomas x5, severe diverticulosis ESOPHAGOGASTRODUODENOSCOPY TRANSORAL DIAGNOSTIC 2000 EGD reportedly normal EXPLORATION GROIN Left 04/29/2018 Left Groin Exploration, Thrombectomy of Left Limb of Axillo-Bifemoral Bypass, Revision of Left Femoral Anastomosis INSERT INTRACORONARY STENT 1998 RCA LAPAROSCOPY SURG CHOLECYSTECTOMY 1997 Cholecystectomy, lap LEFT HEART CATH,PERCUTANEOUS 1998 Cardiac cath, L heart PAST SURGICAL HISTORY OF Carotid stenosis PAST SURGICAL HISTORY OF Bilateral 12/25/2016 Axillo bifem bypass PAST SURGICAL HISTORY OF ureter removal STENT PLACEMENT 1998 BMS RCA STENT PLACEMENT 11/2013 MARVIN RCA Current Outpatient Medications on File Prior to Visit Medication Sig ACETAMINOPHEN (TYLENOL ORAL) Take 1-2 tablets by mouth every 6 hours as needed. aspirin, enteric coated (ASPIRIN, ENTERIC COATED) 325 mg EC tablet Take 325 mg by mouth once daily. benzonatate (TESSALON PERLE) 100 mg capsule Take 1 capsule by mouth three times daily as needed. (Patient not taking: Reported on 06/29/2023) clopidogrel (PLAVIX) 75 mg tablet Take 1 tablet by mouth once daily. diclofenac (VOLTAREN) 0.1 % ophthalmic solution Use 1 Drop in the left eye twice daily. (Patient not taking: Reported on 06/09/2023) escitalopram oxalate (LEXAPRO) 10 mg tablet Take 1 tablet by mouth once daily. fenofibrate nanocrystallized (TRICOR) 145 mg tablet Take 1 tablet by mouth once daily. flash glucose scanning reader (OCP CollectiveSTYLE CL 14 DAY READER) 1 Each once daily. flash glucose sensor (FREESTYLE CL 14 DAY SENSOR) kit Apply sensor to arm every 14 days. gabapentin (NEURONTIN) 600 mg tablet Take 1 tablet by mouth three times daily for 90 days. insulin glargine (BASAGLAR KWIKPEN U-100 INSULIN) 100 unit/mL (3 mL) Inject 25 Units subcutaneouslydaily at bedtime. insulin lispro (HUMALOG KWIKPEN) 100 unit/mL Inject 18 Units subcutaneously three times daily before meals. Plus additional 2 units if glucose is over 250. Insulin Voca, Disposable, (PEN NEEDLE) 32 gauge x 5/32 Inject 1 Each subcutaneously every 24 hours. Give with each insulin administration. lancets ([employer] Mir SUPER THIN LANCETS) 30 gauge Use to test glucose 4 times daily, as directed. DX: E11.42, E11.65, Z79.4 lisinopril 2.5 mg tablet Take 1 tablet by mouth once daily. metoprolol succinate ER (TOPROL XL) 25 mg 24 hr tablet Take 1 tablet by mouth once daily. MULTIVIT &MINERALS/FERROUS FUM (MULTI VITAMIN ORAL) Take by mouth once daily. ofloxacin (OCUFLOX) 0.3 % ophthalmic solution (Patient not taking: Reported on 06/09/2023) prednisoLONE acetate (PRED FORTE) 1 % ophthalmic suspension (Patient not taking: Reported on 06/09/2023) rivaroxaban (XARELTO) 20 mg tablet Take 1 tablet by mouth daily with dinner. rosuvastatin (CRESTOR) 20 mg tablet Take 1 tablet by mouth once daily. spironolactone (ALDACTONE) 25 mg tablet Take 1 tablet by mouth once daily. tamsulosin (FLOMAX) 0.4 mg Take 1 capsule by mouth once daily TRUE METRIX GLUCOSE TEST STRIP test strip Use to test glucose 4 times daily, as directed. DX: E11.42, E11.65, Z79.4 UNIFINE PENTIPS PLUS 32 gauge x 5/32 Use for insulin pen injections 5 times daily, as directed. DX: E11.42, E11.65, Z79.4 No current facility-administered medications on file prior to visit. ALLERGIES Allergen Reactions Atorvastatin Myalgia Levofloxacin Unknown Metformin Diarrhea BP 140/68 (BP Site: Left Arm, BP Position: Sitting) Pulse 92 Resp 18 Ht 5' 4 (1.626 m) Wt 158 lb (71.7 kg) BMI 27.12 kg/m PHYSICAL EXAM: General Appearance: Well appearing, alert, in no acute distress, well-hydrated, well nourished. Skin: Skin color, texture, turgor normal, no suspicious rashes. Wound to R great toe & 3rd & 4th toes as pictured below: * The above image(s) of the RIGHT FOOT was/were taken on 06/29/23, with the verbal permission of the patient, for use in clinical documentation purposes only using an encrypted, [facility] approved device. All efforts were made to exclude or minimize identifying information and respect patient modesty and privacy. Head: Normocephalic, no masses, lesions, tenderness or abnormalities. Eyes: Anicteric sclera. Extraocular movements are intact. Ears: External ears normal, hearing is adequate. Neck: Supple. Lungs: Breathing is easy and unlabored. Extremities: No deformities, edema, skin discoloration, clubbing or cyanosis. L AKA with stump wellhealed. Peripheral Pulses: Capillary refill brisk, peripheral pulses not palpable in R; Weak DP signal found, PT not found, weak Pop signal found Neurologic: Gait not observed - wheelchair. Normal cognition and motor skills. Sensation decreased d/t longstanding neuropathy, Strength grossly intact. IMPRESSION: Mr. Masterson has extensive vascular history including multiple previous bypasses and L AKA. We discussed today that he does not have a revasculazation option remaining. Surgical option would be amputation - patient does not desire an amputation at this time and would like to try wound care first. Will refer to wound care center and see back in 4-6 weeks. Discussed with patient and that is pain worsens or if there are signs of worsening infection that amputation will likely be the only option. PLAN: Follow up in in 4-6 weeks, wound care I spent 30 minutes in the visit, with more than 50% of the total ryrx-ro-bpeh time of the visit in counseling / coordination of care. documented in this encounterUniversity Hospitals [facility] Center10-11-2023 Miscellaneous Notes* Telephone Encounter - Mellisa Pickett - 06/30/2023 5:21 PM EDT Received request for most recent chart notes within the last 6 months from [employer]. Request faxed to [phone] documented in this encounterUniversity Hospitals Geauga [facility] Center10-11-2023 Miscellaneous Notes* Telephone Encounter - Paulina Severino MD - 06/30/2023 3:50 PM EDT Glucose better. Appt/ check A1c Paulina Severino MD documented in this [facility]10-10-2023 History of Present illness Narrative* Elizabeth Ball APRN.PARK ACTIVITIES COORDINATOR - 06/29/2023 4:43 PM EDT Images from the original note were not included. Shilo Hathaway 72 year old male here for follow-up PAD He has undergone the following procedure: - Attempted ABF -- 2017 DJW - R Ax- fem / R fem- L fem bypass with B DRESS FINISHER endart -- 2016 DJW - L groin exploration, LLE graft thrombectomy -- 2016 JZ - L groin exploration with thrombectomy of fem-fem bypass -- 2017 DJW - L ax- profunda to R profunda bypass w/ redo groins -- LM 2021 - L AKA -- CB 2021 SUBJECTIVE: Mr. Hathaway returns to the office for routine follow-up of his PAD. Has been having ongoing issues with his back and recently had an issue that has caused him to have to hold his PT. Reports that his prosthetic is pretty well fitting, though Hanna is already telling him that he needs a new one. 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 No significant concern for claudication or rest pain, but explains that a couple of weeks ago (around 06/01) he hit his R foot on the side of his wheelchair. Had some discoloration in his R 3rd & 4th toes, and thinks that at least one of those toes had been broken. Toes and forefoot were significantly swollen for a week or so. Swelling in the foot has resolved and there is only some mild swelling still in the affected toes. Has been cleansing toes with peroxide or Hibiclens. Has noticed open area on the inside of each toe, where they touch. No fever or chills. No purulence. On asa, plavix, xarelto, statin. +CAD, HLD, HTN, [place] (1998), DM, Carotid ASO Former smoker - quit in 1998. TESTING: PVR done 06/23/23, results: R МАРИЯ 0.30/TBI 0.00 PVR done 12/15/22, results: R МАРИЯ 0.90/TBI 0.53 PAST MEDICAL HISTORY Diagnosis Date Aortoiliac occlusive disease (HCC) Atherosclerotic heart disease of mentasta coronary artery without angina pectoris Carotid artery occlusion Carotid artery stenosis Cerebrovascular accident (CVA) ([facility]) Coronary arteriosclerosis [place] 1998 Depressive disorder Disc disorder of lumbar region Diverticulitis of colon Diverticulitis of colon Essential tremor Gastroesophageal reflux disease Generalized anxiety disorder Hiatal hernia History of myocardial infarction Hyperlipidemia Hypertension Intervertebral disc disorder of lumbar region with myelopathy Irritable bowel syndrome Myocardial infarction (HCC) Old myocardial infarction Peripheral vascular disease (HCC) PERS HX COLONIC POLYPS Preoperative testing 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 Sleep apnea SOB (shortness of breath) 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) Type 2 diabetes mellitus (HCC) PAST SURGICAL HISTORY Procedure Laterality Date AMPUTATION OF LOWER LEG Left 05/05/2022 Left above knee amputation ANGIOPLASTY 1998, 2005, 2014 CAROTID ENDARTERECTOMY Bilateral right 02/2013, left 08/2001 COLONOSCOPY FLX DX W/COLLJ SPEC WHEN PFRMD 2000 Colonoscopy with polypectomies COLONOSCOPY SCREENING 07/04/2021 tubular adenomas x5, severe diverticulosis ESOPHAGOGASTRODUODENOSCOPY TRANSORAL DIAGNOSTIC 2000 EGD reportedly normal EXPLORATION GROIN Left 04/29/2018 Left Groin Exploration, Thrombectomy of Left Limb of Axillo-Bifemoral Bypass, Revision of Left Femoral Anastomosis INSERT INTRACORONARY STENT 1998 RCA LAPAROSCOPY SURG CHOLECYSTECTOMY 1997 Cholecystectomy, lap LEFT HEART CATH,PERCUTANEOUS 1998 Cardiac cath, L heart PAST SURGICAL HISTORY OF Carotid stenosis PAST SURGICAL HISTORY OF Bilateral 12/25/2016 Axillo bifem bypass PAST SURGICAL HISTORY OF ureter removal STENT PLACEMENT 1998 BMS RCA STENT PLACEMENT 11/2013 MARVIN RCA Current Outpatient Medications on File Prior to Visit Medication Sig ACETAMINOPHEN (TYLENOL ORAL) Take 1-2 tablets by mouth every 6 hours as needed. aspirin, enteric coated (ASPIRIN, ENTERIC COATED) 325 mg EC tablet Take 325 mg by mouth once daily. benzonatate (TESSALON PERLE) 100 mg capsule Take 1 capsule by mouth three times daily as needed. (Patient not taking: Reported on 06/29/2023) clopidogrel (PLAVIX) 75 mg tablet Take 1 tablet by mouth once daily. diclofenac (VOLTAREN) 0.1 % ophthalmic solution Use 1 Drop in the left eye twice daily. (Patient not taking: Reported on 06/09/2023) escitalopram oxalate (LEXAPRO) 10 mg tablet Take 1 tablet by mouth once daily. fenofibrate nanocrystallized (TRICOR) 145 mg tablet Take 1 tablet by mouth once daily. flash glucose scanning reader (OCP CollectiveSTYLE CL 14 DAY READER) 1 Each once daily. flash glucose sensor (OCP CollectiveSTYLE CL 14 DAY SENSOR) kit Apply sensor to arm every 14 days. gabapentin (NEURONTIN) 600 mg tablet Take 1 tablet by mouth three times daily for 90 days. insulin glargine (BASAGLAR KWIKPEN U-100 INSULIN) 100 unit/mL (3 mL) Inject 25 Units subcutaneouslydaily at bedtime. insulin lispro (HUMALOG KWIKPEN) 100 unit/mL Inject 18 Units subcutaneously three times daily before meals. Plus additional 2 units if glucose is over 250. Insulin Voca, Disposable, (PEN NEEDLE) 32 gauge x 5/32 Inject 1 Each subcutaneously every 24 hours. Give with each insulin administration. lancets ([employer] Mir SUPER THIN LANCETS) 30 gauge Use to test glucose 4 times daily, as directed. DX: E11.42, E11.65, Z79.4 lisinopril 2.5 mg tablet Take 1 tablet by mouth once daily. metoprolol succinate ER (TOPROL XL) 25 mg 24 hr tablet Take 1 tablet by mouth once daily. MULTIVIT &MINERALS/FERROUS FUM (MULTI VITAMIN ORAL) Take by mouth once daily. ofloxacin (OCUFLOX) 0.3 % ophthalmic solution (Patient not taking: Reported on 06/09/2023) prednisoLONE acetate (PRED FORTE) 1 % ophthalmic suspension (Patient not taking: Reported on 06/09/2023) rivaroxaban (XARELTO) 20 mg tablet Take 1 tablet by mouth daily with dinner. rosuvastatin (CRESTOR) 20 mg tablet Take 1 tablet by mouth once daily. spironolactone (ALDACTONE) 25 mg tablet Take 1 tablet by mouth once daily. tamsulosin (FLOMAX) 0.4 mg Take 1 capsule by mouth once daily TRUE METRIX GLUCOSE TEST STRIP test strip Use to test glucose 4 times daily, as directed. DX: E11.42, E11.65, Z79.4 UNIFINE PENTIPS PLUS 32 gauge x 5/32 Use for insulin pen injections 5 times daily, as directed. DX: E11.42, E11.65, Z79.4 No current facility-administered medications on file prior to visit. ALLERGIES Allergen Reactions Atorvastatin Myalgia Levofloxacin Unknown Metformin Diarrhea BP 140/70 (BP Site: Right Arm, BP Position: Sitting) Pulse 88 Resp 16 Ht 5' 4 (1.626 m) Wt160 lb (72.6 kg) BMI 27.46 kg/m PHYSICAL EXAM: General Appearance: Well appearing, alert, in no acute distress, well-hydrated, well nourished. Skin: Skin color, texture, turgor normal, no suspicious rashes. Wound to R great toe & 3rd & 4th toes as pictured below: * The above image(s) of the RIGHT FOOT was/were taken on 06/29/23, with the verbal permission of the patient, for use in clinical documentation purposes only using an encrypted, [facility] approved device. All efforts were made to exclude or minimize identifying information and respect patient modesty and privacy. Head: Normocephalic, no masses, lesions, tenderness or abnormalities. Eyes: Anicteric sclera. Extraocular movements are intact. Ears: External ears normal, hearing is adequate. Neck: Supple. Lungs: Breathing is easy and unlabored. Extremities: No deformities, edema, skin discoloration, clubbing or cyanosis. L AKA with stump wellhealed. Peripheral Pulses: Capillary refill brisk, peripheral pulses not palpable in R; Weak DP signal found, PT not found, weak Pop signal found Neurologic: Gait not observed - wheelchair. Normal cognition and motor skills. Sensation decreased d/t longstanding neuropathy, Strength grossly intact. IMPRESSION: (I73.9) PVD (peripheral vascular disease) (HCC) (primary encounter diagnosis), (I74.09) Aortoiliac occlusive disease (HCC), (S91.104A) Open wound of fourth toe of right foot, initial encounter, (S91.104A) Open wound of lesser toe of right foot, (I70.0) Atherosclerosis of aorta (HCC), (R09.89) Diminished pulses in lower extremity Comment: Given notable change in PVR and new wounds, will proceed with CTA as discussed with Dr. Jones, as Dr. Villalpando is out of the office this week. ++Will need carotid US done in next couple of months for routine annual screening Plan: CTA ABD/PEL LOWER EXTREM W IVCON PLAN: Shilo will follow-up after CTA. He is encouraged to call with any questions or concerns in the meantime. The patient is currently taking a statin: Yes The patient is currently taking aspirin: Yes I spent 45 minutes in the visit, with more than 50% of the total [id number] time of the visit in counseling / coordination of care. Elizabeth Ball APRN.PARK ACTIVITIES COORDINATOR documented in this encounterUniversity Hospitals Geauga [facility] Center10-10-2023 Miscellaneous Notes* Telephone Encounter - Cyndi Clark OCCA - 06/29/2023 10:02 AM EDT Last appointment: 04/22/23 Next appointment: NA Pharmacy verified in [facility]. Refill(s) requested: Requested Prescriptions Pending Prescriptions Disp Refills Insulin Voca, Disposable, (PEN NEEDLE) 32 gauge x 5/32 100 Each 3 Sig: Inject 1 Each subcutaneously every 24 hours. Give with each insulin administration. Order(s) pended. Please advise,thank you. Cyndi GARCÍA June 29, 2023 10:02 AM documented in this encounterUniversity Hospitals Geauga [facility] Center09-20-2023 Instructions* Patient Instructions* Davin August PA-C - 06/09/2023 1:55 PM EDT How to review your options for a [facility] physician referral: Go to [email or web address] and look for the Find a Doctor tab right underneath the [facility] logo in the top left corner of the page. Click on that and then enter spine injection in that search field. There should be 18 or 20 different physicians in the [facility] area for you to review their credentials, locations of practice, educational background, and specialties. Call [phone] to schedule. documented in this encounterUniversity Hospitals Geauga Medical Center09-20-2023 History of Present illness Narrative* Davin August PA-C - 06/09/2023 1:11 PM EDT Davin August PA-C [facility] [facility] [address] [id number] Dear Paulina Severino MD, Shilo Barriga Renetta is a pleasant 72 year old individual who comes in to the office on 06/09/2023 for follow-up regarding the Lumbar spine. Has lower back pain, and right leg- numbness and cold, pain goes down to the foot. Level of the pain is at 5/10. Since he last saw Davin brandy, his left leg, from the left knee down was amputated. Spouse accompanies the patient today. Subjective: Compared to the last visit, symptoms have been worse. Mr. Hathaway is here for the follow up on the lower back pain. Describes very sudden and severe onset of right lower extremity pain in the non- dermatomal distribution involving the entire foot and lower leg and the posterolateral aspect of the upper leg and to alesser extent the anterior aspect of the upper leg above the knee. He can barely even touch his foot without severe pain he feels he has noticed some swelling in the right foot that also came on suddenly He is quite concerned because after his recent LEFT AKA procedure, his right leg is the ONLY leg that he has available to use to ambulate at this point. He is still trying to learn to use his prosthesis on the left but it is still difficult for him to utilize due to pain at the stump itself. ROS: Since last visit-patient DENIES fevers, chills, night sweats, unexpected weight loss or gain, abdominal pain, progressive weakness, paralysis, loss of bowel/bladder control, saddle numbness, stumbling gait, loss of coordination. and Since last visit--patient indicates NEW presence of: numbnessor tingling in the right leg- started last Wednesday and weakness of the leg. Current Outpatient Medications Medication Sig Dispense Refill insulin glargine (BASAGLAR KWIKPEN U-100 INSULIN) 100 unit/mL (3 mL) Inject 22 Units subcutaneouslydaily at bedtime. 5 Each 10 insulin lispro (HUMALOG KWIKPEN) 100 unit/mL Inject 16 Units subcutaneously three times daily before meals. Plus additional 2 units if glucose is over 250. 5 Each 2 clopidogrel (PLAVIX) 75 mg tablet Take 1 tablet by mouth once daily. 90 tablet 3 escitalopram oxalate (LEXAPRO) 10 mg tablet Take 1 tablet by mouth once daily. 90 tablet 3 benzonatate (TESSALON PERLE) 100 mg capsule Take 1 capsule by mouth three times daily as needed. 20capsule 0 tamsulosin (FLOMAX) 0.4 mg Take 1 capsule by mouth once daily 30 capsule 8 fenofibrate nanocrystallized (TRICOR) 145 mg tablet Take 1 tablet by mouth once daily. 90 tablet 3 lisinopril 2.5 mg tablet Take 1 tablet by mouth once daily. 30 tablet 11 metoprolol succinate ER (TOPROL XL) 25 mg 24 hr tablet Take 1 tablet by mouth once daily. 30 [id number] spironolactone (ALDACTONE) 25 mg tablet Take 1 tablet by mouth once daily. 30 tablet 11 gabapentin (NEURONTIN) 400 mg capsule Take 1 capsule by mouth three times daily for 90 days. 90 capsule 2 rivaroxaban (XARELTO) 20 mg tablet Take 1 tablet by mouth daily with dinner. 30 tablet 11 Insulin Voca, Disposable, (PEN NEEDLE) 32 gauge x 5/32 Inject 1 Each subcutaneously q 24 HR. Give with each insulin administration. 100 Each 3 rosuvastatin (CRESTOR) 20 mg tablet Take 1 tablet by mouth once daily. 90 tablet 3 flash glucose sensor (FREESTYLE CL 14 DAY SENSOR) kit Apply sensor to arm every 14 days. 6 Each 3 flash glucose scanning reader (FREESTYLE CL 14 DAY READER) 1 Each once daily. 1 Each 0 TRUE METRIX GLUCOSE TEST STRIP test strip Use to test glucose 4 times daily, as directed. DX: E11.42, E11.65, Z79.4 400 Strip 3 UNIFINE PENTIPS PLUS 32 gauge x 5/32 Use for insulin pen injections 5 times daily, as directed. DX: E11.42, E11.65, Z79.4 500 Each 3 lancets (UNILET SUPER THIN LANCETS) 30 gauge Use to test glucose 4 times daily, as directed. DX: E11.42, E11.65, Z79.4 400 Each 3 ACETAMINOPHEN (TYLENOL ORAL) Take 1-2 tablets by mouth every 6 hours as needed. aspirin, enteric coated (ASPIRIN, ENTERIC COATED) 325 mg EC tablet Take 325 mg by mouth once daily. MULTIVIT &MINERALS/FERROUS FUM (MULTI VITAMIN ORAL) Take by mouth once daily. diclofenac (VOLTAREN) 0.1 % ophthalmic solution Use 1 Drop in the left eye twice daily. (Patient not taking: Reported on 06/09/2023) ofloxacin (OCUFLOX) 0.3 % ophthalmic solution (Patient not taking: Reported on 06/09/2023) prednisoLONE acetate (PRED FORTE) 1 % ophthalmic suspension (Patient not taking: Reported on 06/09/2023) No current facility-administered medications for this visit. Exam: Blood pressure 170/53, pulse 101, height 162.6 cm (5' 4), weight 72.1 kg (159 lb), SpO2 99 %. Body mass index is 27.29 kg/m . Station and Gait: sits in a W/C today. Had the LLE amputated below the knee Range of Motion: No problems with flexion, but extension is limited because he is seated in his wheelchair and cannot stand up today. Motor: He seems to have apparent motor deficits but not clearly related to a particular lumbar nerve function. His apparent deficits are accompanied by pain limitation to his resistance testing. Sensory: He describes global hyperesthesia in the foot and to a lesser degree in the lower leg and upper leg accordingly. Reflexes: There are no left leg reflexes testable due to AKA Right Achilles testing is severely painful and questionable in result. Right patellar reflex is normal at 2/4 Pain on Palpation: Severe pain on palpating the right foot at the ankle and below. Imaging: The following study/studies were reviewed with the patient during the visit: 03/2022 lumbar MRI: , No new imaging studies were reviewed during this office visit. Assessment/Plan: Encounter Diagnosis ICD-10-CM 1. Acute right-sided low back pain with right-sided sciatica M54.41 SPINE INTERVENTION PROCEDURE CONSULT TO NEUROLOGY 2. Spinal stenosis of lumbar region with neurogenic claudication M48.062 SPINE INTERVENTION PROCEDURE CONSULT TO NEUROLOGY RTC: About a month or so after trial of injection Other/Discussion: Had a discussion during today's office visit and the patient is quite concerned about the severity and immediate onset of the symptoms. He had a moderate correlation on lumbar MRI study last summer involving right L4-5 disc bulge and we could certainly try an injection at this level but with no particular promise of improvement based on his symptoms sent and global nature of symptoms in the foot and lower leg. He understands that I would not expect a lumbar nerve to cause symptoms that widespread so we will be looking separately for neurologic evaluation and follow-up considering possibility of CRPS Time spent: 40 minutes today with this patient visit. This includes [id number] time, review of chart records regarding conservative care history, spine- pertinent imaging, and communication/care coordination with referring provider, problem-specific history-taking and counseling/education regarding treatment options. This document has been created with the use of voice recognition technology. It may contain inaccuracies: (e.g. misspellings, inaccurate syntax or word sense) that have escaped review. Callie Marrero MA documented in this encounterUniversity Hospitals [facility]aug[facility]09-12-2023 History of Present illness Narrative* Sandra Alba PTA - 06/01/2023 1:18 PM EDT Episode Visit Count: 38 Therapist That Will Accept/Oversee The Plan Of Care: Kath Horton Start of Care Date: 11/03/22 Onset Date: 05/05/22 (Konrad GLORIA) Plan of Care Certification Date: 04/01/23 Next Certification Due Date: 05/03/23 [facility] PHYSICAL THERAPY TREATMENT NOTE ASSESSMENT: Shilo Hathaway tolerated the session with fatigue. He demonstrated difficulty with weight bearing to left. Lateral residual limb discomfort noted with weight shift. Unable to progress ambulation with LBQC due to residual limb pain. The patient will continue to benefit from ongoing skilled physical therapy to progress toward set goals. PLAN FOR NEXT VISIT: continue with gait training as tolerates SUBJECTIVE: Patient reports My leg (residual limb) has been killing me. I think its the weather. Patient reports that limb is not red, spouse checks limb daily. Pain has ranged 1- 5/10, 5/10 pain was 2 days ago, when couldn't sleep. Pain: Pain Pain Level: 2 Pain Location: Thigh - Left Post Treatment Pain Post Treatment Pain Level: 1 Post Treatment Pain Location: Thigh - Left OBJECTIVE MEASURES WITH LEVEL OF FUNCTION: Mild pink noted on lateral left residual limb TREATMENT: Neuromuscular Re-Education: 1: weight shifts with LBQC x 10, x 2 sets,( removed prosthesis between sets to monitor skin on residual limb) 2: static stance with theraband , blue , resistance to right /left and posterior x 10 each 3: Static stance with 6 # coreball curl and press x 10 each 4: Static stance with 6 # coreball horizontal abduction x 10 Skilled Intervention: Skilled judgment used to assess appropriate program for balance and coordination activity. Ensured patient safety with use of gait belt and CGA Gait Trainin: wheelchair push ups before sit to stand x 10 2: Ambulation with LBQC x 2 feet then x 3 feet then held due to discomfort 3: ambulation with FWW 50 feet x 2 , cues for left foot placement Skilled Intervention: Facilitated proper gait cycle with the use of verbal and visual cues for correction of gait deviations identified in the objective section above. Gait belt utilized during session for safety. Billing Neuromuscular Re-Education Treatment Minutes: 20 Gait Training Treatment Minutes: 25 Skilled Treatment Time Minutes (timed and untimed codes): 45 Total Session Time (minutes): 49 Session Start Time : 1319 Session Stop Time : 1408 aSndra Alba PTA documented in this encounterUniversity Hospitals Geauga [facility]09-07-2023 Miscellaneous Notes* Telephone Encounter - Paulina Severino MD - 05/27/2023 5:10 PM EDT If we see the Hba1c going down instead of up, I will believe that your sugar is improving. A couple of moderately high sugars taken during a time when you were not eating or taking your usual meds doesn't prove anything to me. Send me your glucose readings Paulina Severino MD documented in this encounterUniversity Hospitals Geauga [facility]09-06-2023 History and physical note * Roseline Pearson MD - 05/26/2023 10:45 AM EDT UPDATED HISTORY AND PHYSICAL EXAMINATION SERVICE DATE: 05/26/2023 SERVICE TIME: 10:00 PHYSICAL EXAM MUST BE COMPLETED ON ADMISSION The History and Physical (completed in the past 30 days) has been reviewed and the patient has beenexamined. The contents accurately reflect the patient's condition with the following additions or revisions since the H&P was completed. Examination indicates no changes. This H&P can be found in the Electronic Medical Record . SIGNATURE: Roseline Pearson MD PATIENT NAME: Shilo Hathaway DATE: May 26, 2023 TIME: 10:01 AM Source Note - Roseline Pearson MD - 05/26/2023 10:45 AM EDT CHIEF COMPLAINT: Patient presents with: Occult blood positive stool This consult was requested by Paulina Severino MD for an opinion regarding positive FIT. My finalrecommendations will be communicated to the requesting health care provider by way of the shared medical record for internal providers or letter via the [employer] for external providers. HPI: Shilo Hathaway is a 72 year old male who presents for Occult blood positive stool . PMHx of T2DM, HTN, depression, hx of VA, HLD is present today. Patient tells me that he is feeling well today. Denies symptoms today including rectal bleeding, black stools, changes in bowels, GERD. Notes that he always have a positive test. Does have numerous polyps. States he had a colonoscopy in 2020 at [facility]. Component Latest Ref Rng & Units 11/28/2022 Occult Blood, Stool Negative Positive (A) Record Review: [facility] / Outside records reviewed. 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 Carotid artery occlusion Carotid artery stenosis Cerebrovascular accident (CVA) (HCC) Coronary arteriosclerosis [place] 1998 Depressive disorder Disc disorder of lumbar region Diverticulitis of colon Diverticulitis of colon Essential tremor Gastroesophageal reflux disease Generalized anxiety disorder Hiatal hernia History of myocardial infarction Hyperlipidemia Hypertension Intervertebral disc disorder of lumbar region with myelopathy Irritable bowel syndrome Myocardial infarction (HCC) Old myocardial infarction Peripheral vascular disease (HCC) PERS HX COLONIC POLYPS Preoperative testing 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 Sleep apnea SOB (shortness of breath) Thrombosis of right femoral-femoral bypass graft ([facility]) Type 2 diabetes mellitus (HCC) PAST SURGICAL HISTORY PAST SURGICAL HISTORY Procedure Laterality Date AMPUTATION OF LOWER LEG Left 05/05/2022 Left above knee amputation ANGIOPLASTY 1998, 2004, 2013 CAROTID ENDARTERECTOMY Bilateral right 02/2013, left 08/2001 COLONOSCOPY FLX DX W/COLLJ SPEC WHEN PFRMD 2000 Colonoscopy with polypectomies ESOPHAGOGASTRODUODENOSCOPY TRANSORAL DIAGNOSTIC 2000 EGD reportedly normal EXPLORATION GROIN Left 04/29/2018 Left Groin Exploration, Thrombectomy of Left Limb of Axillo-Bifemoral Bypass, Revision of Left Femoral Anastomosis INSERT INTRACORONARY STENT 1998 RCA LAPAROSCOPY SURG CHOLECYSTECTOMY 1997 Cholecystectomy, lap LEFT HEART CATH,PERCUTANEOUS 1998 Cardiac cath, L heart PAST SURGICAL HISTORY OF Carotid stenosis PAST SURGICAL HISTORY OF Bilateral 12/25/2016 Axillo bifem bypass PAST SURGICAL HISTORY OF ureter removal STENT PLACEMENT 1998 BMS RCA STENT PLACEMENT 11/2013 MARVIN RCA Allergies: ALLERGIES ALLERGIES Allergen Reactions Atorvastatin Myalgia Levofloxacin Unknown Metformin Diarrhea Medications: CURRENT MEDICATIONS benzonatate (TESSALON PERLE) 100 mg capsule Take 1 capsule by mouth three times daily as needed. insulin glargine (BASAGLAR KWIKPEN U-100 INSULIN) 100 unit/mL (3 mL) Inject 14 Units subcutaneouslydaily at bedtime. tamsulosin (FLOMAX) 0.4 mg Take 1 capsule by mouth once daily insulin lispro (HUMALOG KWIKPEN) 100 unit/mL Inject 10 Units subcutaneously three times daily before meals. fenofibrate nanocrystallized (TRICOR) 145 mg tablet Take 1 tablet by mouth once daily. lisinopril 2.5 mg tablet Take 1 tablet by mouth once daily. metoprolol succinate ER (TOPROL XL) 25 mg 24 hr tablet Take 1 tablet by mouth once daily. spironolactone (ALDACTONE) 25 mg tablet Take 1 tablet by mouth once daily. rivaroxaban (XARELTO) 20 mg tablet Take 1 tablet by mouth daily with dinner. Insulin Voca, Disposable, (PEN NEEDLE) 32 gauge x 5/32 Inject 1 Each subcutaneously q 24 HR. Give with each insulin administration. rosuvastatin (CRESTOR) 20 mg tablet Take 1 tablet by mouth once daily. flash glucose sensor (FREESTYLE CL 14 DAY SENSOR) kit Apply sensor to arm every 14 days. flash glucose scanning reader (FREESTYLE CL 14 DAY READER) 1 Each once daily. escitalopram oxalate (LEXAPRO) 10 mg tablet Take 1 tablet by mouth once daily. clopidogrel (PLAVIX) 75 mg tablet Take 1 tablet by mouth once daily. TRUE METRIX GLUCOSE TEST STRIP test strip Use to test glucose 4 times daily, as directed. DX: E11.42, E11.65, Z79.4 UNIFINE PENTIPS PLUS 32 gauge x 5/32 Use for insulin pen injections 5 times daily, as directed. DX: E11.42, E11.65, Z79.4 lancets (UNILET SUPER THIN LANCETS) 30 gauge Use to test glucose 4 times daily, as directed. DX: E11.42, E11.65, Z79.4 ACETAMINOPHEN (TYLENOL ORAL) Take 1-2 tablets by mouth every 6 hours as needed. aspirin, enteric coated (ASPIRIN, ENTERIC COATED) 325 mg EC tablet Take 325 mg by mouth once daily. MULTIVIT &MINERALS/FERROUS FUM (MULTI VITAMIN ORAL) Take by mouth once daily. diclofenac (VOLTAREN) 0.1 % ophthalmic solution Use 1 Drop in the left eye twice daily. (Patient not taking: Reported on 01/25/2023) ofloxacin (OCUFLOX) 0.3 % ophthalmic solution INSTILL 1 DROP INTO LEFT EYE 4 TIMES DAILY (Patient not taking: Reported on 01/25/2023) prednisoLONE acetate (PRED FORTE) 1 % ophthalmic suspension INSTILL 1 DROP INTO LEFT EYE 4 TIMES DAILY (Patient not taking: Reported on 01/25/2023) gabapentin (NEURONTIN) 400 mg capsule Take 1 capsule by mouth three times daily for 90 days. 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 Are you taking any blood thinners? Yes, Plavix Physical Examination: BP 146/66 Pulse 60 Ht 5' 4 (1.63m) Wt 160 lb (72.6kg) BMI 27.45 kg/(m^2). Physical Exam Constitutional: Appearance: Normal appearance. He is normal weight. HENT: Head: Normocephalic and atraumatic. Eyes: General: No scleral icterus. Extraocular Movements: Extraocular movements intact. Conjunctiva/sclera: Conjunctivae normal. Pupils: Pupils are equal, round, and reactive to light. Cardiovascular: Rate and Rhythm: Normal rate and regular rhythm. Pulses: Normal pulses. Heart sounds: Normal heart sounds. Pulmonary: Effort: Pulmonary effort is normal. Breath sounds: Normal breath sounds. Abdominal: General: Abdomen is flat. Bowel sounds are normal. Palpations: Abdomen is soft. Tenderness: There is no abdominal tenderness. Musculoskeletal: Cervical back: Normal range of motion and neck supple. Comments: In wheelchair, L AKA noted Skin: General: Skin is warm and dry. Coloration: Skin is not jaundiced. Neurological: General: No focal deficit present. Mental Status: He is alert and oriented to person, place, and time. Psychiatric: Mood and Affect: Mood normal. Behavior: Behavior normal. Thought Content: Thought content normal. Judgment: Judgment normal. Assessment/Plan (R19.5) Positive FIT (fecal immunochemical test) (primary encounter diagnosis) 1. Positive FIT (fecal immunochemical test) -- Patient with positive FIT, denies GI symptoms today. -- Will try to get recent colonoscopy from [facility] ?2020. -- Consider repeat colonoscopy I have discussed the above with the patient. I have offered colonoscopy possible biopsies I have explained the procedure to the patient. I have counseled the patient as to the risks of the procedure, including but not limited to: infection, bleeding, injury to any intrabdominal organs such as liver/spleen, perforation of the GI tract,inability to complete the procedure, complications of anesthesia, etc. - the patient understands. The patient wishes to proceed. I have answered all questions to the patient s satisfaction and the patient has no further questions. * Roseline Pearson MD - 05/26/2023 10:45 AM EDT CHIEF COMPLAINT: Patient presents with: Occult blood positive stool This consult was requested by Paulina Severino MD for an opinion regarding positive FIT. My finalrecommendations will be communicated to the requesting health care provider by way of the shared medical record for internal providers or letter via the [employer] for external providers. HPI: Shilo Hathaway is a 72 year old male who presents for Occult blood positive stool . PMHx of T2DM, HTN, depression, hx of VA, HLD is present today. Patient tells me that he is feeling well today. Denies symptoms today including rectal bleeding, black stools, changes in bowels, GERD. Notes that he always have a positive test. Does have numerous polyps. States he had a colonoscopy in 2020 at [facility]. Component Latest Ref Rng & Units 11/28/2022 Occult Blood, Stool Negative Positive (A) Record Review: [facility] / Outside records reviewed. 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 Carotid artery occlusion Carotid artery stenosis Cerebrovascular accident (CVA) (HCC) Coronary arteriosclerosis [place] 1998 Depressive disorder Disc disorder of lumbar region Diverticulitis of colon Diverticulitis of colon Essential tremor Gastroesophageal reflux disease Generalized anxiety disorder Hiatal hernia History of myocardial infarction Hyperlipidemia Hypertension Intervertebral disc disorder of lumbar region with myelopathy Irritable bowel syndrome Myocardial infarction (HCC) Old myocardial infarction Peripheral vascular disease (HCC) PERS HX COLONIC POLYPS Preoperative testing 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 Sleep apnea SOB (shortness of breath) 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) Type 2 diabetes mellitus (HCC) PAST SURGICAL HISTORY PAST SURGICAL HISTORY Procedure Laterality Date AMPUTATION OF LOWER LEG Left 05/05/2022 Left above knee amputation ANGIOPLASTY 1998, 2004, 2013 CAROTID ENDARTERECTOMY Bilateral right 02/2013, left 08/2001 COLONOSCOPY FLX DX W/COLLJ SPEC WHEN PFRMD 2000 Colonoscopy with polypectomies ESOPHAGOGASTRODUODENOSCOPY TRANSORAL DIAGNOSTIC 2000 EGD reportedly normal EXPLORATION GROIN Left 04/29/2018 Left Groin Exploration, Thrombectomy of Left Limb of Axillo-Bifemoral Bypass, Revision of Left Femoral Anastomosis INSERT INTRACORONARY STENT 1998 RCA LAPAROSCOPY SURG CHOLECYSTECTOMY 1997 Cholecystectomy, lap LEFT HEART CATH,PERCUTANEOUS 1998 Cardiac cath, L heart PAST SURGICAL HISTORY OF Carotid stenosis PAST SURGICAL HISTORY OF Bilateral 12/25/2016 Axillo bifem bypass PAST SURGICAL HISTORY OF ureter removal STENT PLACEMENT 1998 BMS RCA STENT PLACEMENT 11/2013 MARVIN RCA Allergies: ALLERGIES ALLERGIES Allergen Reactions Atorvastatin Myalgia Levofloxacin Unknown Metformin Diarrhea Medications: CURRENT MEDICATIONS benzonatate (TESSALON PERLE) 100 mg capsule Take 1 capsule by mouth three times daily as needed. insulin glargine (BASAGLAR KWIKPEN U-100 INSULIN) 100 unit/mL (3 mL) Inject 14 Units subcutaneouslydaily at bedtime. tamsulosin (FLOMAX) 0.4 mg Take 1 capsule by mouth once daily insulin lispro (HUMALOG KWIKPEN) 100 unit/mL Inject 10 Units subcutaneously three times daily before meals. fenofibrate nanocrystallized (TRICOR) 145 mg tablet Take 1 tablet by mouth once daily. lisinopril 2.5 mg tablet Take 1 tablet by mouth once daily. metoprolol succinate ER (TOPROL XL) 25 mg 24 hr tablet Take 1 tablet by mouth once daily. spironolactone (ALDACTONE) 25 mg tablet Take 1 tablet by mouth once daily. rivaroxaban (XARELTO) 20 mg tablet Take 1 tablet by mouth daily with dinner. Insulin Voca, Disposable, (PEN NEEDLE) 32 gauge x 5/32 Inject 1 Each subcutaneously q 24 HR. Give with each insulin administration. rosuvastatin (CRESTOR) 20 mg tablet Take 1 tablet by mouth once daily. flash glucose sensor (OCP CollectiveSTYLE CL 14 DAY SENSOR) kit Apply sensor to arm every 14 days. flash glucose scanning reader (FREESTYLE CL 14 DAY READER) 1 Each once daily. escitalopram oxalate (LEXAPRO) 10 mg tablet Take 1 tablet by mouth once daily. clopidogrel (PLAVIX) 75 mg tablet Take 1 tablet by mouth once daily. TRUE METRIX GLUCOSE TEST STRIP test strip Use to test glucose 4 times daily, as directed. DX: E11.42, E11.65, Z79.4 UNIFINE PENTIPS PLUS 32 gauge x / Use for insulin pen injections 5 times daily, as directed. DX: E11.42, E11.65, Z79.4 lancets (UNILET SUPER THIN LANCETS) 30 gauge Use to test glucose 4 times daily, as directed. DX: E11.42, E11.65, Z79.4 ACETAMINOPHEN (TYLENOL ORAL) Take 1-2 tablets by mouth every 6 hours as needed. aspirin, enteric coated (ASPIRIN, ENTERIC COATED) 325 mg EC tablet Take 325 mg by mouth once daily. MULTIVIT &MINERALS/FERROUS FUM (MULTI VITAMIN ORAL) Take by mouth once daily. diclofenac (VOLTAREN) 0.1 % ophthalmic solution Use 1 Drop in the left eye twice daily. (Patient not taking: Reported on 01/25/2023) ofloxacin (OCUFLOX) 0.3 % ophthalmic solution INSTILL 1 DROP INTO LEFT EYE 4 TIMES DAILY (Patient not taking: Reported on 01/25/2023) prednisoLONE acetate (PRED FORTE) 1 % ophthalmic suspension INSTILL 1 DROP INTO LEFT EYE 4 TIMES DAILY (Patient not taking: Reported on 01/25/2023) gabapentin (NEURONTIN) 400 mg capsule Take 1 capsule by mouth three times daily for 90 days. 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 Are you taking any blood thinners? Yes, Plavix Physical Examination: BP 146/66 Pulse 60 Ht 5' 4 (1.63m) Wt 160 lb (72.6kg) BMI 27.45 kg/(m^2). Physical Exam Constitutional: Appearance: Normal appearance. He is normal weight. HENT: Head: Normocephalic and atraumatic. Eyes: General: No scleral icterus. Extraocular Movements: Extraocular movements intact. Conjunctiva/sclera: Conjunctivae normal. Pupils: Pupils are equal, round, and reactive to light. Cardiovascular: Rate and Rhythm: Normal rate and regular rhythm. Pulses: Normal pulses. Heart sounds: Normal heart sounds. Pulmonary: Effort: Pulmonary effort is normal. Breath sounds: Normal breath sounds. Abdominal: General: Abdomen is flat. Bowel sounds are normal. Palpations: Abdomen is soft. Tenderness: There is no abdominal tenderness. Musculoskeletal: Cervical back: Normal range of motion and neck supple. Comments: In wheelchair, Konrad JUANI noted Skin: General: Skin is warm and dry. Coloration: Skin is not jaundiced. Neurological: General: No focal deficit present. Mental Status: He is alert and oriented to person, place, and time. Psychiatric: Mood and Affect: Mood normal. Behavior: Behavior normal. Thought Content: Thought content normal. Judgment: Judgment normal. Assessment/Plan (R19.5) Positive FIT (fecal immunochemical test) (primary encounter diagnosis) 1. Positive FIT (fecal immunochemical test) -- Patient with positive FIT, denies GI symptoms today. -- Will try to get recent colonoscopy from [facility] ?2020. -- Consider repeat colonoscopy I have discussed the above with the patient. I have offered colonoscopy possible biopsies I have explained the procedure to the patient. I have counseled the patient as to the risks of the procedure, including but not limited to: infection, bleeding, injury to any intrabdominal organs such as liver/spleen, perforation of the GI tract,inability to complete the procedure, complications of anesthesia, etc. - the patient understands. The patient wishes to proceed. I have answered all questions to the patient s satisfaction and the patient has no further questions. documented in this encounterUniversity Hospitals [facility]09-04-2023 Miscellaneous Notes* Telephone Encounter - Kenia Hopson - 05/24/2023 10:29 AM EDT LMOM to schedule with DASH on LM day 6 Month F/UP for PVD with US ARETERIAL PVR 06/23/2023 *LM* documented in this encounterUniversity Hospitals Ge[facility]08-22-2023 Miscellaneous Notes* Telephone Encounter - Paulina Severino MD - 05/11/2023 12:24 PM EDT Increase long acting to 22 units daily Increase short acting insulin to 16 units with each meal. Send readings in a couple weeks Paulina Severino MD * Telephone Encounter - Marci Mckeon Ma - 05/10/2023 3:43 PM EDT Please review and advise documented in this encounterUniversity Hospitals Geaug[facility]08-22-2023 History of Present illness Narrative* Kath Horton, ANTONI - 05/11/2023 12:22 PM EDT Episode Visit Count: 36 Therapist That Will Accept/Oversee The Plan Of Care: Kath Horton Start of Care Date: 11/03/22 Onset Date: 05/05/22 (Konrad GLORIA) Plan of Care Certification Date: 04/01/23 Next Certification Due Date: 05/03/23 REHABILITATION AND SPORTS THERAPY PHYSICAL THERAPY TREATMENT NOTE ASSESSMENT: Shilo Hathaway tolerated the session with stump pain which limits ability to adequately shift to left side. Prosthetic tish/doff again to decrease pain. He demonstrated improvements in distance with quad cane and quality with gait. The patient will continue to benefit from ongoing skilled physical therapy to progress toward set goals. PLAN FOR NEXT VISIT: continue with gait with decreasing cues , CGA for safety, to encourage confidence SUBJECTIVE: Sore after last session. Still pain in groing with prosthesis and looking into pad. Pain: see above OBJECTIVE MEASURES WITH LEVEL OF FUNCTION: Good effort and motivation TREATMENT: Neuromuscular Re-Education: 1: weight shifting to left with quad cane-painful x 10 (to work on weight shifts with walking in front of bed at home-extended time to discuss benefit and home performance) Skilled Intervention: Skilled judgment used to assess appropriate program for balance and coordination activity. Gait Trainin: gait with LBQC 12 ft x 4, 24 ft, 18 ft 2: ambualtion with FWW with emphasis on quality of L LE WB and fluidity of gait x 175 ft Skilled Intervention: Gait belt utilized during session for safety. Correct performance of home program was facilitated with verbal and visual cueing. Billing Neuromuscular Re-Education Treatment Minutes: 8 Gait Training Treatment Minutes: 32 Total Treatment Time Minutes (timed/untimed): 48 Session Start Time : 1207 Session Stop Time : 1255 Kath Horton PT documented in this encounterUniversity Hospitals Geaug[facility] Center08-17-2023 History of Present illness Narrative* Kath Horton, PT - 05/06/2023 3:20 PM EDT Episode Visit Count: 35 Therapist That Will Accept/Oversee The Plan Of Care: Kath Horton Start of Care Date: 11/03/22 Onset Date: 05/05/22 (Konrad GLORIA) Plan of Care Certification Date: 04/01/23 Next Certification Due Date: 05/03/23 REHABILITATION AND SPORTS THERAPY PHYSICAL THERAPY PROGRESS REPORT PLAN OF CARE UPDATE: Assessment: Shilo Barriga Renetta demonstrates improvements in gait with FWW, noting able to walk all necessary distancesnow. Able to navigate stairs at home now and voices confidence with. Total of 80 ft with quad cane today 10 ft with standing rest, 10 ft then sitting rest. Max distance quad cane since last recheck of 20ft before needed rest. LBQC distance is improved since last visit. He has progressed toward goals. Patient continues to present with impairments in balance and gait with SBQC. Current prognosis isGood due to: current objective clinical presentation, good support system/ coping skills . He will benefit from continued skilled therapy services to meet the updated goals for this plan of care as noted below. Goals for Episode of Care: created on 11/03/22 through 01/02/23 Updated 12/01/2022 Updated 12/30/2022 Updated 01/28/2023 Updated 03/04/2023 Updated 04/01/2023 Updated 05/06/2023 Gait with FWW 250 ft. progressing Mcfaddin in home exercise program. met Patient will decrease pain rating by 2 points to meet minimal clinical important difference for numeric pain rating scale. progressing Patient will increase active ROM of right ankle/foot to + 5 degrees or better to assist with gait. progressing Patient will demonstrate increase in B hip, right knee, right ankle strength to 5/5 during manual muscle testing in order to improve function for prior functional tasks. Continue to assess Patient will increase flexibility of right HS and B hip flexor to min restriction or better to improve ability to maintain proper posture, improve mechanics, and decrease pain. Progressing Improve postural awareness. 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 met Standing balance feet together 30sec or better met Partial tandem balance 20 sec or greater met New Goal: LBQC 100ft Tandem stance 5 sec Planned Interventions, Frequency, and Duration: 1x/week, 8 weeks Total Number of Visits Planned: 8 Patient to be seen for Therapeutic exercise (51558), Neuromuscular re-education (36189), Manual therapy (39278), Therapeutic activities (54656), Self-assisted management (00956), Gait Training (62052), Patient/Family/Caregiver Education PLAN FOR NEXT VISIT: continue with gait with decreasing cues , CGA for safety, to encourage confidence SUBJECTIVE: Pain better of recent. Able to mow lawn with less pain during and after. Able to navigate stairs at home now. Still not confident with quad cane at home now. Able to get on ground to tendto verhicle task. goal of walking without A.D. Pain: see above PROMIS Scales T-scores: mean of general population = 50. 5 points is clinically meaningfully difference Percentiles provide an indication of how the patient's score ranks in relation to the general population. Higher percentile rankings indicate better function/quality of life. 50th percentile is the average of the general population and indicates half of respondents had a worse score. OBJECTIVE MEASURES WITH LEVEL OF FUNCTION: LE AROM R Ankle Dorsiflexion: (+3) TREATMENT: Gait Trainin: gait with LBQC 10 ft ,10 ft, 10 ft, 10 ft, 10 ft, 10 ft, 10 ft, 10 ft (CGA- min A for safety) Skilled Intervention: Gait belt utilized during session for safety. Correct performance of home program was facilitated with verbal and visual cueing. Therapeutic Activity: 1: verbal and tactile cues with walker for appropriate weight shifting on/off prostheses x 4 min Skilled Intervention: Assisted proper completion of task with verbal and visual cueing and correction of abnormal movement patterns. Self-Long-Term Management: 1: weight shifting practice with walker and continue to increase distance with FWW Skilled Intervention: Skilled judgment in the selection of proper modification for activity of daily living/home management based on clinical presentation, deficits, and needs. Billing Therapeutic Activity Treatment Minutes: 4 Gait Training Treatment Minutes: 50 Total Treatment Time Minutes (timed/untimed): 57 Session Start Time : 1517 Session Stop Time : 1615 Kath Horton PT documented in this encounterUniversity Hospitals [facility]08-10-2023 Miscellaneous Notes* Telephone Encounter - Danitza Card RN - 04/29/2023 2:35 PM EDT Tried calling patient's mobile, won't go through. Called patient's home number. No answer. Left message on [employer] advising will send message from PCP verbatim through [employer], please let us know that he received and understands the message. * Telephone Encounter - Paulina Severino MD - 04/29/2023 1:04 PM EDT I am confident you can get better control of your sugar with paying attention and adjusting insulin. My statement about the eye surgery not making sense before getting some reasonable control of the sugar has 2 reasons 1) healing may be impaired with very high sugar, 2) the visual acuity will be changing if the sugar improves. Go ahead and increase the long acting insulin to 20 units daily and send a report next week. If staying over 200 routinely, increase by another 2 units. Paulina Severino MD * Telephone Encounter - Marci Mckeon Ma - 04/29/2023 8:55 AM EDT Please review and advise documented in this encounterUniversity Hospitals [facility]08-03-2023 History of Present illness Narrative* Paulina Severino MD - 04/22/2023 1:05 PM EDT CHIEF COMPLAINT Patient presents with: clearance for eye surgery HISTORY OF PRESENT ILLNESS Shilo Hathaway is a 72 year old male who presents here today for eye surgery clearance. I last saw this patient on 02/24/2023. His eye canceled cataract surgery on R eye due to high sugar Hypertension - Managed on Metoprolol succinate ER 25 mg 24 hr tablet, Lisinopril 2.5 mg tablet and Spironolactone 25 mg tablet Type 2 Diabetes - Managed on Insulin glargine 14 units daily at bedtime and Insulin Lispro 10 units TID daily for meals - BG tends to be yajaira high in the mornings before meals. He has a continuous glucose meter and often notes glucose between 165 and 300, not lower than that. - A1C is 10.7% as of 02/24/2023 - A1C (POCT) is 12%, obtained today in office - Lowest BG reading is 158 - Just before today's office visit, BG is 214 Health Maintenance Due for Hep C Screening Due for Advanced Directive Discussion Due for Covid-19 Vaccine (6- Pfizer series) Due for diabetic Foot Exam Labs reviewed. Past medical history, appointments, medications, allergies reviewed. REVIEW OF SYSTEMS General: Feels OK, no weight changes, fevers or chills. HEENT: No sinus congestion, earache, sore throat. 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 L eye has had cataract surgery and vision is good. Cardiac: No chest pain, palpitations Resp: No cough, wheeze, shortness of breath GI: No reflux symptoms, food intolerance, bowel changes. : No urinary frequency, dysuria. MS: No pain or joint complaints. S/p L leg AK amputation 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 Carotid artery occlusion Carotid artery stenosis Cerebrovascular accident (CVA) (HCC) Coronary arteriosclerosis [place] 1998 Depressive disorder Disc disorder of lumbar region Diverticulitis of colon Diverticulitis of colon Essential tremor Gastroesophageal reflux disease Generalized anxiety disorder Hiatal hernia History of myocardial infarction Hyperlipidemia Hypertension Intervertebral disc disorder of lumbar region with myelopathy Irritable bowel syndrome Myocardial infarction (HCC) Old myocardial infarction Peripheral vascular disease (HCC) PERS HX COLONIC POLYPS Preoperative testing 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 Heart: Regular rate and rhythm. Normal S1 and S2. No murmurs, rubs, or gallops. Lungs: Clear to auscultation bilaterally. No respiratory distress. No wheezes, rales, or rhonchi. Abdomen: Soft, non-tender, no distention. Extremities: Feet/ankles without edema, posterior tibial pulses full and symmetrical. Data Reviewed Component Latest Ref Rng & Units 04/22/2023 Hemoglobin A1C (POCT) 4.2 - 5.6 % 12.0 (A) Component Latest Ref Rng & Units 02/24/2023 Protein, Total 6.3 - 8.0 g/dL 8.8 (H) Albumin 3.9 - 4.9 g/dL 5.2 (H) Calcium 8.5 - 10.2 mg/dL 11.4 (H) Bilirubin, Total 0.2 - 1.3 mg/dL 0.2 Alkaline Phosphatase 38 - 113 U/L 71 AST 14 - 40 U/L 26 ALT 10 - 54 U/L 27 Glucose 74 - 99 mg/dL 207 (H) BUN 9 - 24 mg/dL 26 (H) Creatinine 0.73 - 1.22 mg/dL 1.12 Sodium 136 - 144 mmol/L 134 (L) Potassium 3.7 - 5.1 mmol/L 5.7 (H) Chloride 97 - 105 mmol/L 96 (L) CO2 22 - 30 mmol/L 23 Anion Gap 9 - 18 mmol/L 15 eGFR >=60 mL/min/1.73m 70 WBC 3.70 - 11.00 k/uL 6.40 RBC 4.20 - 6.00 m/uL 4.58 Hemoglobin 13.0 - 17.0 g/dL 13.4 Hematocrit 39.0 - 51.0 % 42.7 MCV 80.0 - 100.0 fL 93.2 MCH 26.0 - 34.0 pg 29.3 MCHC 30.5 - 36.0 g/dL 31.4 RDW-CV 11.5 - 15.0 % 12.3 Platelet Count 150 - 400 k/uL 316 MPV 9.0 - 12.7 fL 10.7 Absolute nRBC <0.01 k/uL <0.01 Cholesterol, Total <200 mg/dL 178 Triglyceride <150 mg/dL 245 (H) HDL Cholesterol >39 mg/dL 36 (L) Non HDL Cholesterol <130 mg/dL 142 (H) Fasting Time hrs 12 VLDL Cholesterol <30 mg/dL 49 (H) TC:HDL Ratio <5.10 4.94 LDL Cholesterol <100 mg/dL 93 LDL:HDL Ratio <2.54 2.58 (H) Hemoglobin A1C 4.3 - 5.6 % 10.7 (H) Estimated Average Glucose mg/dL 260 TSH 0.270 - 4.200 mIU/L 0.710 Assessment/Plan (E11.51, Z79.4) Type 2 diabetes mellitus with diabetic peripheral angiopathy without gangrene, withlong-term current use of insulin (HCC) (primary encounter diagnosis) Comment: Poorly controlled Plan: HEMOGLOBIN A1C (POC) is 12%, obtained today in office Increase insulin lispro (HUMALOG KWIKPEN) 100 unit/mL to 12 units TID daily before meals + additional 2 units if BG over 250 Increase insulin glargine (BASAGLAR KWIKPEN U-100 INSULIN) 100 unit/mL (3 mL) to 18 units daily at bedtime Patient is to send me BG log through [employer] within the next few weeks, goal is have BG under 150 (H25.091) Other age-related incipient cataract of right eye Comment: Patient has been trying to schedule eye surgery for some time now, came in today for clearance Plan: Recommend postponing surgery until diabetes is under better control. (Z23) Encounter for immunization Comment: Per health maintenance Plan: [employer] COVID-19 BIVALENT VACCINE, AGE 12+ YR (F32.A) Depressive disorder Comment: In need of refill Plan: escitalopram oxalate (LEXAPRO) 10 mg tablet Requested Prescriptions Signed Prescriptions Disp Refills insulin glargine (BASAGLAR KWIKPEN U-100 INSULIN) 100 unit/mL (3 mL) 5 Each 10 Sig: Inject 18 Units subcutaneously daily at bedtime. insulin lispro (HUMALOG KWIKPEN) 100 unit/mL 5 Each 2 Sig: Inject 12 Units subcutaneously three times daily before meals. Plus additional 2 units if glucose is over 250. escitalopram oxalate (LEXAPRO) 10 mg tablet 90 tablet 3 Sig: Take 1 tablet by mouth once daily. RTO: 3 months Scribe Attestation: By signing my name below, ITimbo, attest that this documentation has been prepared under the direction and in the presence of Manpreet Severino M.D. Electronically Signed: Neftali Wall. April 22, 2023 1:05 PM Provider Attestation: Paulina Farmer MD, personally performed the services described in this documentation. All medical record entries made by the scribe were at my direction and in my presence. I have reviewed the chart and discharge instructions (if applicable), and agree that the record reflects my personal performance and is accurate and complete. Electronically Signed: Paulina Severino MD April 22, 2023 3:05 PM documented in this encounterUniversity Hospitals [facility]07-29-2023 History of Present illness Narrative* Kath Horton, PT - 04/17/2023 7:53 AM EDT Episode Visit Count: 32 Therapist That Will Accept/Oversee The Plan Of Care: Kath Horton Start of Care Date: 11/03/22 Onset Date: 05/05/22 (Konrad GLORIA) Plan of Care Certification Date: 04/01/23 Next Certification Due Date: 05/03/23 REHABILITATION AND SPORTS THERAPY PHYSICAL THERAPY TREATMENT NOTE ASSESSMENT: Shilo Hathaway tolerated the session with increased symptoms. Increased pain with residualfor 2 days of insidious onset. Upon inspection tenderness distal limb. No reddness or swelling. Hadto defer ambulation attempt due to pain. He demonstrated difficulty with ability to WB today and performed activity with prosthetic limb off today. The patient will continue to benefit from ongoing skilled physical therapy to progress toward set goals. PLAN FOR NEXT VISIT: Resume WB tasks as able. Check tandem stance max. Continue with emphasis on confidence with quad cane and and stairs. SUBJECTIVE: Painful today, questions weather. 10 end of residual limb. Sore after last session. Pain: see above OBJECTIVE MEASURES WITH LEVEL OF FUNCTION: Tish/doff prosthesis x 1 start of session due pain TREATMENT: Therapeutic Exercise: 1: R prone quad hip flexor/quad stretch with belt 5 x 20 sec 2: R lateral hip stretch 3 x 20 sec 3: SKTC 3 x 20 sec ea Skilled Intervention: Patient was educated in proper exercise technique and purpose for exercises. Skilled judgment was provided in selection of appropriate interventions. Correct performance of therapeutic exercises was facilitated with verbal and visual cuing. Manual Therapy: 1: STM L residual limb 2: IASTM lumbar, gluteal, L thigh 3: passive stretching B hip flexors, adductors, rotators 5: assisted R HS stretch 2 x 30 sec Skilled Intervention: Manual skills to improve joint mobility, ROM, and decrease pain. Utilized anatomy knowledge of the therapist, and assessment of patient's response to intervention. Billing Manual TherapyTreatment Minutes: 32 Therapeutic Activity Treatment Minutes: 8 Total Treatment Time Minutes (timed/untimed): 47 Session Start Time : 754 Session Stop Time : 841 Kath Horton PT documented in this encounterUniversity Hospitals [facility] Center07-13-2023 History of Present illness Narrative* Kath Horton PT - 04/01/2023 2:38 PM EDT Episode Visit Count: 30 Therapist That Will Accept/Oversee The Plan Of Care: Kath Horton Start of Care Date: 11/03/22 Onset Date: 05/05/22 (Konrad GLORIA) Plan of Care Certification Date: 04/01/23 Next Certification Due Date: 05/03/23 REHABILITATION AND SPORTS THERAPY PHYSICAL THERAPY PROGRESS REPORT PLAN OF CARE UPDATE: Assessment: Recently had prosthesis adjusted with positive response. FWW max improved to 175ft and LBQC max of 20 ft in clinic today. TUG score also improving. Challenged with sit to stand testing due to difficulty with locking and unlocking with new mechanism. He has progressed toward goals. Patient continues to present with impairments in balance, gait, posture, and strength that interfere with . Current prognosis is Good due to: current objective clinical presentation, good support system/ coping skills . He will benefit from continued skilled therapy services to meet the updated goals for this plan of care as noted below. Goals for Episode of Care: created on 11/03/22 through 01/02/23 Updated 12/01/2022 Updated 12/30/2022 Updated 01/28/2023 Updated 03/04/2023 Updated 04/01/2023 Gait with FWW 250 ft. progressing Mcfaddin in home exercise program. met Patient will decrease pain rating by 2 points to meet minimal clinical important difference for numeric pain rating scale. progressing Patient will increase active ROM of right ankle/foot to + 5 degrees or better to assist with gait. progressing Patient will demonstrate increase in B hip, right knee, right ankle strength to 5/5 during manual muscle testing in order to improve function for prior functional tasks. Progressed overall, no change since last recheck Patient will increase flexibility of right HS and B hip flexor to min restriction or better to improve ability to maintain proper posture, improve mechanics, and decrease pain. Progressing Improve postural awareness. 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 progressing New goal: Standing balance feet together 30sec or better met Partial tandem balance 20 sec or greater met Planned Interventions, Frequency, and Duration: 1x/week, 4 weeks Total Number of Visits Planned: 4 Patient to be seen for Therapeutic exercise (38788), Neuromuscular re-education (79390), Manual therapy (05116), Therapeutic activities (18473), Self-assisted management (13205), Gait Training (28806), Patient/Family/Caregiver Education PLAN FOR NEXT VISIT: Check tandem stance max. Continue with emphasis on confidence with quad and and stairs. SUBJECTIVE: . Had prosthesis adjusted and seems to be helpful. Walking longer distance at home. Able to stand, walk and balance better. Still not confident with cane at home. Able to ambulate at homewith walker leg unlocked. Stair difficulty with stairs. Pain: see above PROMIS Scales T-scores: mean of general population = 50. 5 points is clinically meaningfully difference Percentiles provide an indication of how the patient's score ranks in relation to the general population. Higher percentile rankings indicate better function/quality of life. 50th percentile is the average of the general population and indicates half of respondents had a worse score. OBJECTIVE MEASURES WITH LEVEL OF FUNCTION: Functional Performance Test Results 30 Second Chair Stand Test: 7 reps (B Ue assist-trouble locking and unlocking for sit to stand withnew settings) 5 Times Sit to Stand Test : 20 sec Timed Up and Go (sec): 44 sec (FWW 44 sec, LBQC) TREATMENT: Neuromuscular Re-Education: 1: recheck per above Skilled Intervention: Skilled judgment used to assess appropriate program for balance and coordination activity. Gait Trainin: ambulation with LBQC and CGA to min A 18ft, 5: ambulation 175 ft max with walker Skilled Intervention: Patient was provided CGA to min with cues for technique with dtep lenght during pre-gait/gait training to prevent falls and insure safety. Gait belt utilized during session for safety. Billing Neuromuscular Re-Education Treatment Minutes: 25 Gait Training Treatment Minutes: 15 Total Treatment Time Minutes (timed/untimed): 45 Kath Horton PT documented in this encounterUniversity Hospitals [facility]07-03-2023 History of Present illness Narrative* Sandra Alba PTA - 03/22/2023 1:51 PM EDT Episode Visit Count: 29 Therapist That Will Accept/Oversee The Plan Of Care: Kath Horton Start of Care Date: 11/03/22 Onset Date: 05/05/22 (Konrad GLORIA) Plan of Care Certification Date: 02/28/23 Next Certification Due Date: 05/03/23 REHABILITATION AND SPORTS THERAPY PHYSICAL THERAPY TREATMENT NOTE ASSESSMENT: Shilo Hathaway tolerated the session with fatigue. He demonstrated difficulty with ambulation with LBQC, patient presents with mild shaking with exertion. The patient will continue to benefit from ongoing skilled physical therapy to progress toward set goals. PLAN FOR NEXT VISIT: Continue with gait steps and balance SUBJECTIVE: Patient Reason for Visit: Patient reports I haven't tried the stairs at home. I have been walking with the leg loose. I am not walking with the cane at home. Pain: Pain Pain Level: 0 Pain Location: Thigh - Left Post Treatment Pain Post Treatment Pain Level: No Change OBJECTIVE MEASURES WITH LEVEL OF FUNCTION: Patient ambulates with LBQC with step to pattern, decreased step length, decreased weight shift to left TREATMENT: Neuromuscular Re-Education: 1: Static stand at counter for total of 12.5 minutes with simulated home activities : Including cone reach x 10 2: R/L cone diagonalsx 10 3: R/L curl and press with 2 # plyoball x 10 4: simulated reach with core ball 2 # x 10 each 5: Lateral stepping with LBQC to obtain cup of water and carrying to opposite end of counter 8 feetx 2 Skilled Intervention: Skilled judgment used to assess appropriate program for balance and coordination activity. Ensured patient safety with use of gait belt Gait Trainin: Ambulation with LBQC 15 feet 5: AMbulation with LBQC 10 feet then CW turn then additional 10 feet with another CW turn Skilled Intervention: Facilitated proper gait cycle with the use of verbal and visual cues for correction of gait deviations identified in the objective section above. Gait belt utilized during session for safety. Skilled judgment used to assess selection, proper sizing, and proper use of assistive device. Billing Neuromuscular Re-Education Treatment Minutes: 18 Gait Training Treatment Minutes: 23 Total Treatment Time Minutes (timed/untimed): 41 Sandra Alba PTA documented in this encounterUniversity Hospitals [facility]06-26-2023 History of Present illness Narrative* Sandra Alba PTA - 03/15/2023 1:57 PM EDT Episode Visit Count: 28 Therapist That Will Accept/Oversee The Plan Of Care: Kath Horton Start of Care Date: 11/03/22 Onset Date: 05/05/22 (Konrad LGORIA) Plan of Care Certification Date: 02/28/23 Next Certification Due Date: 05/03/23 REHABILITATION AND SPORTS THERAPY PHYSICAL THERAPY TREATMENT NOTE ASSESSMENT: Shilo Hathaway tolerated the session with fatigue and decreased symptoms. He demonstrated difficulty with weight bearing through prosthesis initially. Patient instructed to perform static stand with greater weight through right when left is painful. The patient will continue to benefit from ongoing skilled physical therapy to progress toward set goals. PLAN FOR NEXT VISIT: continue with ambulaiton with LBQC and steps SUBJECTIVE: Patient Reason for Visit: Patient reports I was in bed, Wednesday , Wednesday and Wednesday, I have a sinus infection. Pain: Pain Pain Level: 5 Pain Location: Thigh - Left Post Treatment Pain Post Treatment Pain Level: 2 Post Treatment Pain Location: Thigh - Left OBJECTIVE MEASURES WITH LEVEL OF FUNCTION: Patient occasionally catching left prosthetic toe with ascending step TREATMENT: Gait Trainin: Ascending/descending gym steps with railing and SBQC x 3 3: Static stand with cervical rotation with greater weight thru right due to increased left le sensitivity 4: Ambulation with FWW 30 feet x 2 initially due to pain with left weight bearing 5: Ambulation with LBQC 12 feet x1 Skilled Intervention: Facilitated proper gait cycle with the use of verbal and visual cues for correction of gait deviations identified in the objective section above. Gait belt utilized during session for safety. Education provided to patient regarding the proper sequence for stair negotiation. Billing Gait Training Treatment Minutes: 38 Total Treatment Time Minutes (timed/untimed): 38 Sandra Alba PTA documented in this encounterUniversity Hospitals [facility]06-20-2023 History of Present illness Narrative* Kath Horton PT - 03/09/2023 2:36 PM EDT Episode Visit Count: 27 Therapist That Will Accept/Oversee The Plan Of Care: Kath Horton Start of Care Date: 11/03/22 Onset Date: 05/05/22 (Konrad GLORIA) Plan of Care Certification Date: 02/28/23 Next Certification Due Date: 05/03/23 REHABILITATION AND SPORTS THERAPY PHYSICAL THERAPY TREATMENT NOTE ASSESSMENT: Shilo Hathaway tolerated the session with fatigue and expected muscle soreness. He demonstrated improvements in ability to walk with quad cane. Challenged with optimal sequencing with quad cane and requires frequent cues. Increased stability with LBQC this date. The patient will continue to benefit from ongoing skilled physical therapy to progress toward set goals. PLAN FOR NEXT VISIT: goal of navigating 6 steps with rail and ambulation with quad cane SUBJECTIVE: Doing more walking with prosthesis unlocked. No falls or close calls. Status quo. Pain: see above Post Treatment Pain Post Treatment Symptoms: reports fatigue and post activity soreness OBJECTIVE MEASURES WITH LEVEL OF FUNCTION: Good effort and motivation Pt requires tish/doff and readjustment of prosthesis early in session due to pain. Improves after. Start of session skin integrity good TREATMENT: Gait Trainin: LBQC x 6 ft, 6 ft, 8 ft, 10 ft 6: SBQC 4 x 8 ft with 2 turns with CGA to min A Skilled Intervention: Gait belt utilized during session for safety. Correct performance of home program was facilitated with verbal and visual cueing. Self-Long-Term Management: 1: discussed strategies on/off floor and car transfers Skilled Intervention: Skilled judgment in the selection of proper modification for activity of daily living/home management based on clinical presentation, deficits, and needs. Billing Self-Care/Home Management Treatment Minutes: 5 Gait Training Treatment Minutes: 40 Total Treatment Time Minutes (timed/untimed): 55 Kath Horton PT documented in this encounterUniversity Hospitals [facility]06-15-2023 History of Present illness Narrative* Kath Horton PT - 03/04/2023 3:04 PM EDT Episode Visit Count: 26 Therapist That Will Accept/Oversee The Plan Of Care: Kath Horton Start of Care Date: 11/03/22 Onset Date: 05/05/22 (Konrad GLORIA) Plan of Care Certification Date: 02/28/23 Next Certification Due Date: 05/03/23 REHABILITATION AND SPORTS THERAPY PHYSICAL THERAPY PROGRESS REPORT PLAN OF CARE UPDATE: Assessment: Shilo Hathaway demonstrates improvements in balance, gait quality and distance, function, flexibility.He has progressed toward goals. Patient continues to present with impairments in balance, coordination, flexibility, gait, overall function, posture, range of motion, and strength that interfere with. Current prognosis is Good due to: current objective clinical presentation, good support system/ coping skills . He will benefit from continued skilled therapy services to meet the updated goals forthis plan of care as noted below. Goals for Episode of Care: created on 11/03/22 through 01/02/23 Updated 12/01/2022 Updated 12/30/2022 Updated 01/28/2023 Updated 03/04/2023 Gait with FWW 250 ft. progressing Mcfaddin in home exercise program. progressing Patient will decrease pain rating by 2 points to meet minimal clinical important difference for numeric pain rating scale. Continue to assess Patient will increase active ROM of right ankle/foot to + 5 degrees or better to assist with gait. progressing Patient will demonstrate increase in B hip, right knee, right ankle strength to 5/5 during manual muscle testing in order to improve function for prior functional tasks. Progressed overall, no change since last recheck Patient will increase flexibility of right HS and B hip flexor to min restriction or better to improve ability to maintain proper posture, improve mechanics, and decrease pain. Progressing Improve postural awareness. 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 progressing New goal: Standing balance feet together 30sec or great met Partial tandem balance 20 sec or greater met Planned Interventions, Frequency, and Duration: 1x/week, 8 weeks Total Number of Visits Planned: 8 Patient to be seen for Therapeutic exercise (08648), Neuromuscular re-education (99020), Manual therapy (30262), Therapeutic activities (55758), Self-assisted management (88515), Gait Training (11677), Patient/Family/Caregiver Education PLAN FOR NEXT VISIT: goal of navigating 6 steps with rail and ambulation with quad cane SUBJECTIVE: Progressing. Biggest challenge is balance. No falls or close calls. Walking with walkerat home. Still limited with standing balance. Walking at in home with prosthesis unlocked but not confident at home. Pain: see above PROMIS Scales T-scores: mean of general population = 50. 5 points is clinically meaningfully difference Percentiles provide an indication of how the patient's score ranks in relation to the general population. Higher percentile rankings indicate better function/quality of life. 50th percentile is the average of the general population and indicates half of respondents had a worse score. OBJECTIVE MEASURES WITH LEVEL OF FUNCTION: LE AROM R Ankle Dorsiflexion: (to neutral) LE Strength R Hip Flexion (L2): 5/5 R Knee Extension (L3): 5/5 R Knee Extension Functional Strength (L3): 5 R Ankle Dorsiflexion (L4): 4-/5 R Ankle Inversion: 4+/5 R Ankle Eversion: 4+/5 Gait max with FWW 144 ft Functional Performance Test Results 30 Second Chair Stand Test: 8 reps (with use of UE's) 5 Times Sit to Stand Test : 20 sec (with use of UE's) Timed Up and Go (sec): 50 sec 4 Stage Balance Test Narrow base of support (sec): (feet together 30 +, 30+ romberg) Semi-tandem base of support (sec): (left back 30 plus, right back 15 sec) Tandem base of support (sec): (unable) TREATMENT: Therapeutic Exercise: Skilled Intervention: Patient was educated in proper exercise technique and purpose for exercises. Correct performance of therapeutic exercises was facilitated with verbal and visual cuing. Billing Neuromuscular Re-Education Treatment Minutes: 45 Total Treatment Time Minutes (timed/untimed): 50 Kath Horton PT documented in this encounterUniversity Hospitals [facility]06-07-2023 History of Present illness Narrative* Paulina Severino MD - 02/24/2023 11:01 AM EDT CHIEF COMPLAINT Patient presents with: 6 Month Exam: 6 month follow nothing new to report. HISTORY OF PRESENT ILLNESS Shilo Hathaway is a 72 year old male who presents here today for 6 month follow up. I last saw this patient on 11/23/2022. - Patient recently had cataract correction surgery Above Knee Amputation - Patient endorses phantom pain Diabetes - Currently managed on Insulin glargine (basaglar kwikpen units-100 insulin) 100 unit/mL (3mL), Inject 14 Units subcutaneously daily at bedtime. Insulin lispro (Humalog Kwikpen) 100 unit/mL, inject 10 units subcutaneously three times daily before meals - The other day at doctors office, glucose was 210 - A1C is 10.8 as of 11/23/2022 Urinary Retention - Managed on Flomax 0.4 mg - Patient states urine flow has been good. Health Maintenance Due for BP Controlled (<130/80) Due for Advanced Directive discussion Due for Diabetic foot exam Due for HBA1C Labs reviewed. Past medical history, appointments, medications, allergies reviewed. REVIEW OF SYSTEMS General: Feels well, no weight changes, fevers or chills. HEENT: No sinus congestion, earache, sore throat. Cardiac: No chest pain, palpitations Resp: No cough, wheeze, shortness of breath GI: No reflux symptoms, food intolerance, bowel changes. : No urinary frequency, dysuria. MS: No change in chronic pain or joint complaints. He does have L AKA stump pain. / phantom pain 3 PAST MEDICAL HISTORY PAST MEDICAL HISTORY Diagnosis Date Aortoiliac occlusive disease ([facility]) Atherosclerotic heart disease of [place] coronary artery without angina pectoris Carotid artery occlusion Carotid artery stenosis Cerebrovascular accident (CVA) ([facility]) Coronary arteriosclerosis [place] 1998 Depressive disorder Disc disorder of lumbar region Diverticulitis of colon Diverticulitis of colon Essential tremor Gastroesophageal reflux disease Generalized anxiety disorder Hiatal hernia History of myocardial infarction Hyperlipidemia Hypertension Intervertebral disc disorder of lumbar region with myelopathy Irritable bowel syndrome Myocardial infarction ([facility]) Old myocardial infarction Peripheral vascular disease ([facility]) PERS HX COLONIC POLYPS Preoperative testing 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 Heart: Regular rate and rhythm. Normal S1 and S2. No murmurs, rubs, or gallops. Lungs: Clear to auscultation bilaterally. No respiratory distress. No wheezes, rales, or rhonchi. Abdomen: Soft, non-tender, no distention. Extremities: L AKA , stump with intact skin no breakdown. No sign of skin issues. Data Reviewed Component Latest Ref Rng & Units 11/23/2022 11/28/2022 Hemoglobin A1C (POCT) 4.2 - 5.6 % 10.8 (A) Occult Blood, Stool Negative Positive (A) Assessment/Plan (E11.51, Z79.4) Type 2 diabetes mellitus with diabetic peripheral angiopathy without gangrene, withlong-term current use of insulin ([facility]) (primary encounter diagnosis) Comment: Patient due for labs Plan: HGB A1C, LIPID PANEL BASIC, COMP METABOLIC PANEL, CBC, TSH BLD Continue Insulin regimen (Z89.612) S/P AKA (above knee amputation) unilateral, left ([facility]) Comment: Patient still endorses phantom pain, status quo Plan: Continue to monitor (I50.20) HFrEF (heart failure with reduced ejection fraction) ([facility]) (I73.9) Peripheral vascular disease ([facility]) (I25.119) 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) Comment: Patient with family Plan: LIPID PANEL BASIC, COMP METABOLIC PANEL, CBC (M54.30) Sciatic nerve pain, unspecified laterality Comment: Ongoing Plan: Continue to follow with physical therapy, further discussion as his therapy progresses. The prosthesis aggfavates. Requested Prescriptions No prescriptions requested or ordered in this encounter RTO: as needed Scribe Attestation: By signing my name below, ITimbo, attest that this documentation has been prepared under the direction and in the presence of Manpreet Severino M.D. Electronically Signed: Neftali Wall. February 24, 2023 11:01 AM Provider Attestation: I, Paulina Severino MD, personally performed the services described in this documentation. All medical record entries made by the scribe were at my direction and in my presence. I have reviewed the chart and discharge instructions (if applicable), and agree that the record reflects my personal performance and is accurate and complete. Electronically Signed: Paulina Severino MD February 24, 2023 12:18 PM documented in this encounterUniversity Hospitals [facility]06-05-2023 Miscellaneous Notes* Telephone Encounter - Mellisa Pickett - 02/22/2023 5:06 PM EDT Received request for most recent chart notes from [facility] [employer]. Requested information faxed. documented in this encounterUniversity Hospitals [facility]aug[facility]06-05-2023 History of Present illness Narrative* Sandra Alba, ENIO - 02/22/2023 1:43 PM EDT Episode Visit Count: 24 Therapist That Will Accept/Oversee The Plan Of Care: Kath Horton Start of Care Date: 11/03/22 Onset Date: 05/05/22 (Konrad GLORIA) Plan of Care Certification Date: 12/29/22 Next Certification Due Date: 02/27/23 REHABILITATION AND SPORTS THERAPY PHYSICAL THERAPY TREATMENT NOTE ASSESSMENT: Shilo Hathaway tolerated the session with improved tolerance to weight bearing with prosthetic.. He demonstrated difficulty with utilization of LBQC with ambulation. Static stance is improving. The patient will continue to benefit from ongoing skilled physical therapy to progress toward set goals. PLAN FOR NEXT VISIT: SUBJECTIVE: Patient Reason for Visit: Patient reports I am doing better. I tried to do the sideways the other day. Still trying to balance. Pain: Pain Pain Level: 1 Pain Location: Thigh - Left Description: (tender) Post Treatment Pain Post Treatment Pain Location: (fatigue) OBJECTIVE MEASURES WITH LEVEL OF FUNCTION: TREATMENT: Neuromuscular Re-Education: 1: static stance with cervical rotation then reaching with right /left UE in diagonal pattern x 10 reps each activity 2: static stance with shoulder abduction x 10 3: static stance with reaching with cone with ball perched on top 1 miute 40 seconds Skilled Intervention: Skilled judgment used to assess appropriate program for balance and coordination activity. Ensured patient safety with use of gait belt Gait Trainin: Ambulation with FWW with figure 8 cone walk , 6 cones x 2 2: 6 step ups with bilateral railing x 10 3: 6 step up with railing and SBQC x 6 then 3 steps with with hip hike to avoid circumduction 4: Ambulation with FWW 35 feet x 2 5: Ambulation with LBQC along mat 11 feet x 4, with occasional elevation of right hand Skilled Intervention: Facilitated proper gait cycle with the use of verbal and visual cues for correction of gait deviations Gait belt utilized during session for safety. Skilled judgment used to assess selection, proper sizing, and proper use of assistive device. Education provided to patient regarding the proper sequence for stair negotiation. Billing Neuromuscular Re-Education Treatment Minutes: 15 Gait Training Treatment Minutes: 30 Total Treatment Time Minutes (timed/untimed): 50 Sandra Alba PTA documented in this encounterUniversity Hospitals Geaug[facility] Center05-30-2023 History of Present illness Narrative* Sandra Alba PTA - 02/16/2023 1:14 PM EDT Episode Visit Count: 23 Therapist That Will Accept/Oversee The Plan Of Care: Kath Horton Start of Care Date: 11/03/22 Onset Date: 05/05/22 (Konrad GLORIA) Plan of Care Certification Date: 12/29/22 Next Certification Due Date: 02/27/23 REHABILITATION AND SPORTS THERAPY PHYSICAL THERAPY TREATMENT NOTE ASSESSMENT: Shilo Hathaway tolerated the session with fatigue and expected muscle soreness. He demonstrated difficulty with static stance without upper extremity support. Patient exhibits one episode in100 feet of unsteady landing on prosthetic. The patient will continue to benefit from ongoing skilled physical therapy to progress toward set goals. PLAN FOR NEXT VISIT: Continue with emphasis on optimal gait and safety, standing balance, quad cane as able SUBJECTIVE: Patient Reason for Visit: Patient reports that he is ambulating at home with prostheticlocked . Patient continues to report that residual limb is sore with weight bearing. Pain: Pain Pain Level: 0 Pain Location: Thigh - Left Post Treatment Pain Post Treatment Pain Level: 5 Post Treatment Pain Location: Thigh - Left OBJECTIVE MEASURES WITH LEVEL OF FUNCTION: Patient enters clinic in wheelchair with prosthetic donned TREATMENT: Neuromuscular Re-Education: 1: static stance with bilateral shoulder abduction 2: static stance with opening cabinet door and transfering cones to either side of cabinet with R/LUE reach cone transfer Skilled Intervention: Skilled judgment used to assess appropriate program for balance and coordination activity. Ensured patient safety with use of gait belt and CGA Gait Trainin: FWW 100 ' x 1, cues for hiking hip to clear toe 2: weight shifts with LBQC x 10 and left forward /backward x 10 and right 5 x 2 3: FWW with ambulation over red foam mat 8 feet x 4 with stepping over half foam obsticle x 4 with 2 different sized half rolls Skilled Intervention: Patient was provided contact guard assistance during pre- gait/gait training to prevent falls and insure safety. Facilitated proper gait cycle with the use of verbal and visual cues for correction of gait deviations identified in the objective section above. Gait belt utilized during session for safety. Education provided to patient regarding the proper sequence for uneven Surface and obstacle negotiation. Billing Neuromuscular Re-Education Treatment Minutes: 12 Gait Training Treatment Minutes: 30 Total Treatment Time Minutes (timed/untimed): 44 Sandra Alba PTA documented in this encounterUniversity Hospitals Geauga [facility] Center05-15-2023 Miscellaneous Notes* Telephone Encounter - Mellisa Pickett - 02/01/2023 2:02 PM EDT Received clinical visit summary home visit from [facility]. Placed in provider's inbox for review. Route to MA scanning. documented in this encounterUniversity Hospitals Geauga [facility] Center05-11-2023 History of Present illness Narrative* Kath Horton, PT - 01/28/2023 2:34 PM EDT Episode Visit Count: 19 Therapist That Will Accept/Oversee The Plan Of Care: Kath Horton Start of Care Date: 11/03/22 Onset Date: 05/05/22 (Konrad GLORIA) Plan of Care Certification Date: 12/29/22 Next Certification Due Date: 02/27/23 REHABILITATION AND SPORTS THERAPY PHYSICAL THERAPY PROGRESS REPORT PLAN OF CARE UPDATE: Assessment: Shilo Hathaway demonstrates improvements in quality and distance of gait. Standing balance. Mobility at home with FWW. I with tish/doff of prosthesis. He has progressed toward goals. Patient continues to present with impairments in balance, coordination, flexibility, gait, independence in exercise, overall function, posture, and strength that interfere with . Current prognosis is Good due to: current objective clinical presentation, good support system/ coping skills . He will benefit from continued skilled therapy services to meet the updated goals for this plan of care as noted below. Goals for Episode of Care: created on 11/03/22 through 01/02/23 Updated 12/01/2022 Updated 12/30/2022 Updated 01/28/2023 Gait with FWW 250 ft. progressing Mcfaddin in home exercise program. progressing Patient will decrease pain rating by 2 points to meet minimal clinical important difference for numeric pain rating scale. Continue to assess Patient will increase active ROM of right ankle/foot to + 5 degrees or better to assist with gait. Continue to assess Patient will demonstrate increase in B hip, right knee, right ankle strength to 5/5 during manual muscle testing in order to improve function for prior functional tasks. Progressing Patient will increase flexibility of right HS and B hip flexor to min restriction or better to improve ability to maintain proper posture, improve mechanics, and decrease pain. Progressing Improve postural awareness. 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 Continue to assess New goal: Standing balance feet together 30sec or great Partial tandem balance 20 sec or greater Planned Interventions, Frequency, and Duration: 2x/week, 4 weeks Total Number of Visits Planned: 8 Patient to be seen for Therapeutic exercise (88930), Neuromuscular re-education (24019), Manual therapy (26590), Therapeutic activities (79639), Self-assisted management (11534), Gait Training (26351), Patient/Family/Caregiver Education PLAN FOR NEXT VISIT: Continue with emphasis on optimal gait and safety, standing balance, LBQC to tolerance SUBJECTIVE: . No problem with last session, just typical soreness. Feel confident walking with walker at home with knee locked but not with it unlocked. Leg painful today, unsure why. Doing HEP. Recovered 30% thus far. Still requires assit for meal prep as cannot do stairs yet. Pain: see above PROMIS Scales T-scores: mean of general population = 50. 5 points is clinically meaningfully difference Percentiles provide an indication of how the patient's score ranks in relation to the general population. Higher percentile rankings indicate better function/quality of life. 50th percentile is the average of the general population and indicates half of respondents had a worse score. OBJECTIVE MEASURES WITH LEVEL OF FUNCTION: 4 Stage Balance Test Narrow base of support (sec): 15 sec Semi-tandem base of support (sec): (2-3 sec ea with multiple attempts) TREATMENT: Gait Trainin: recheck per above 2: ambulation with FWW with prosthesis unlocked working on stride and pace 20 ft, 124 ft, 115ft, 90ft (heavy cues for technique to appropriately unlock and lock prosthetic during gait) Skilled Intervention: Gait belt utilized during session for safety. Billing Gait Training Treatment Minutes: 40 Total Treatment Time Minutes (timed/untimed): 45 Kath Horton PT documented in this encounterUniversity Hospitals Geauga Medical Center05-09-2023 Miscellaneous Notes* Telephone Encounter - Loan Romano Pss - 01/26/2023 3:53 PM EDT I sent him a my chart message providing [facility] number to schedule his colon bc he is an uncontrolled diabetic and can't come to [facility]. I told him to let us when he is scheduled and we will get him the prep instructions Cesilia * Telephone Encounter - Jessica Patel PA-C - 01/26/2023 12:37 PM EDT Received and reviewed [facility] records. Called patient, voicemail vague. Left message to call office. Had numerous polyps removed back in 2020 at [facility]. Due to the amount and type, I would recommend a repeat colonoscopy at this time due to the positive FIT. Order placed, he will need to either be scheduled at [facility] or a hospital setting due to A1c at 10.8. Thank you! documented in this encounterUniversity Hospitals Geauga Medical Center05-09-2023 Instructions* Patient Instructions* Jessica Patel PA-C - 01/26/2023 12:40 PM EDT Images from the original note were not included. Bowel Preparation Instructions for: Miralax-Gatorade Preparations IF YOU DO NOT FOLLOW THESE DIRECTIONS, YOUR COLONOSCOPY WILL BE CANCELLED. Conti Instructions: Your bowel must be empty so that your doctor can clearly view your colon. Follow all of the instructions in this handout EXACTLY as they are written. Do NOT eat any solid food the ENTIRE day before your colonoscopy. Buy your bowel preparation at least 5 days before your colonoscopy. Four (4) Dulcolax laxative tablets containing 5mg of bisacodyl each (NOT Dulcolax stool softener) One (1) 8.3oz. bottle Miralax (238 grams) or generic equivalent 2 x 32oz. Bottles of Gatorade (NOT RED) Diabetic Patients: Use G2 (Gatorade 2) TRANSPORTATION on the Day of Your Exam A responsible adult MUST be present with you at Check In prior to your colonoscopy and REMAIN in the endoscopy area until you are discharged. You are NOT ALLOWED to drive, take a taxi or bus, or leave the Endoscopy Center ALONE. If you do not have a responsible coach driver (family member or friend) withyou to take you home, your exam cannot be done with sedation and will be cancelled. Please bring a list of all of your current medications, including any Ntzr-wow-Vvblzbv medications with you. Medications If you take insulin, diabetic medications or blood thinners such as Coumadin (warfarin), Plavix (clopidogrel), Ticlid (ticlopidine hydrochloride), Agrylin (anagrelide), Xarelto (Rivaroxaban), Pradaxa(Dabigatran), Eliquis (Apixaban), and Effient (Prasugrel). You MUST call the doctors who orders those medicines for instructions on altering the dosage before your colonoscopy. All other medications should be taken the day of the exam with a sip of water including ASPIRIN. Five (5) Days Before Your Colonoscopy Do NOT take medicines that stop diarrhea - such as Imodium, Kaopectate, or Pepto Bismol. Do NOT take fiber supplements - such as Metamucil, Citrucel, or Perdiem. Do NOT take products that contain iron - such as multi-vitamins (the label lists what is in the products). Three (3) Days Before Your Colonoscopy Do NOT eat high-fiber foods - such as popcorn, beans, seeds (flax, sunflower, quinoa), multigrain bread, nuts, salad/vegetables, or fresh and dried fruit. 1 Bowel Preparation Instructions for: Miralax-Gatorade Preparations One (1) Day Before Your Colonoscopy Only drink clear liquids the ENTIRE DAY before your colonoscopy. Do NOT eat any solid foods. Drink at least 8 ounces of clear liquids every hour after waking up. The clear liquids you can drink include: Clear Liquid (NO RED LIQUIDS) DO NOT DRINK Gatorade, Pedialyte or Powerade Clear broth or bouillon Coffee or tea (no milk or non-dairy creamer) Carbonated and non-carbonated soft drinks Cedrick-Aid or other fruit flavored drinks Strained fruit juices (no pulp) Jell-O, popsicles, hard candy Water Alcohol Milk or non-dairy creamers Noodles or vegetables in soup Juice with pulp Liquid you cannot see through Do not use tobacco/vaping products Mix 1/2 of Miralax bottle (119 grams) in each 32 ounces of Gatorade bottle until dissolved. Keep cool in the refrigerator. DO NOT ADD ICE. The bowel preparation solution will be consumed in two parts. Part 1 5:00 PM - Evening before your colonoscopy Take 4 Dulcolax tablets. 6 PM - Evening before your colonoscopy Drink 32 oz. of the mixed solution. Drink an 8 oz. glass of bowel preparation every 15 minutes for a total of 4 glasses. Fifteen (15) minutes later, drink an 8 oz. glass of of clear liquids every 15 minutes for a total of 2 glasses. You may continue to drink clear liquids till midnight. Part 2 On the day of your colonoscopy you may drink clear liquids up to (three) 3 hours prior to procedure. 4 1/2 hours before your colonoscopy Take another 32 oz. bottle of mixed solution. Drink an 8 oz. glass of bowel prep every 15 minutes for a total of 4 glasses. Fifteen (15) minutes later, drink an 8 oz. glass of clear liquids every 15 minutes for a total of 2glasses. You may continue to drink clear liquids up to (three) 3 hours before your exam. 2 08/2019 documented in this encounterUniversity Hospitals Geauga Medical Center05-08-2023 History of Present illness Narrative* Jessica Patel PA-C - 01/25/2023 1:59 PM EDT CHIEF COMPLAINT: Patient presents with: Occult blood positive stool This consult was requested by Paulina Severino MD for an opinion regarding positive FIT. My finalrecommendations will be communicated to the requesting health care provider by way of the shared medical record for internal providers or letter via the [employer] for external providers. HPI: Shilo Hathaway is a 72 year old male who presents for Occult blood positive stool . PMHx of T2DM, HTN, depression, hx of VA, HLD is present today. Patient tells me that he is feeling well today. Denies symptoms today including rectal bleeding, black stools, changes in bowels, GERD. Notes that he always have a positive test. Does have numerous polyps. States he had a colonoscopy in 2020 at [facility]. Component Latest Ref Rng & Units 11/28/2022 Occult Blood, Stool Negative Positive (A) Record Review: [facility] / Outside records reviewed. PAST MEDICAL HISTORY Diagnosis Date Aortoiliac occlusive disease (HCC) Atherosclerotic heart disease of [place] coronary artery without angina pectoris Carotid artery occlusion Carotid artery stenosis Cerebrovascular accident (CVA) (HCC) Coronary arteriosclerosis VA 1998 Depressive disorder Disc disorder of lumbar region Diverticulitis of colon Diverticulitis of colon Essential tremor Gastroesophageal reflux disease Generalized anxiety disorder Hiatal hernia History of myocardial infarction Hyperlipidemia Hypertension Intervertebral disc disorder of lumbar region with myelopathy Irritable bowel syndrome Myocardial infarction (HCC) Old myocardial infarction Peripheral vascular disease (HCC) PERS HX COLONIC POLYPS Preoperative testing 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 Sleep apnea SOB (shortness of breath) 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) Type 2 diabetes mellitus (HCC) PAST SURGICAL HISTORY Procedure Laterality Date AMPUTATION OF LOWER LEG Left 05/05/2022 Left above knee amputation ANGIOPLASTY 1998, 2004, 2013 CAROTID ENDARTERECTOMY Bilateral right 02/2013, left 08/2001 COLONOSCOPY FLX DX W/COLLJ SPEC WHEN PFRMD 2000 Colonoscopy with polypectomies ESOPHAGOGASTRODUODENOSCOPY TRANSORAL DIAGNOSTIC 2000 EGD reportedly normal EXPLORATION GROIN Left 04/29/2018 Left Groin Exploration, Thrombectomy of Left Limb of Axillo-Bifemoral Bypass, Revision of Left Femoral Anastomosis INSERT INTRACORONARY STENT 1998 RCA LAPAROSCOPY SURG CHOLECYSTECTOMY 1997 Cholecystectomy, lap LEFT HEART CATH,PERCUTANEOUS 1998 Cardiac cath, L heart PAST SURGICAL HISTORY OF Carotid stenosis PAST SURGICAL HISTORY OF Bilateral 12/25/2016 Axillo bifem bypass PAST SURGICAL HISTORY OF ureter removal STENT PLACEMENT 1998 BMS RCA STENT PLACEMENT 11/2013 MARVIN RCA Allergies: ALLERGIES Allergen Reactions Atorvastatin Myalgia Levofloxacin Unknown Metformin Diarrhea Medications: benzonatate (TESSALON PERLE) 100 mg capsule Take 1 capsule by mouth three times daily as needed. insulin glargine (BASAGLAR KWIKPEN U-100 INSULIN) 100 unit/mL (3 mL) Inject 14 Units subcutaneouslydaily at bedtime. tamsulosin (FLOMAX) 0.4 mg Take 1 capsule by mouth once daily insulin lispro (HUMALOG KWIKPEN) 100 unit/mL Inject 10 Units subcutaneously three times daily before meals. fenofibrate nanocrystallized (TRICOR) 145 mg tablet Take 1 tablet by mouth once daily. lisinopril 2.5 mg tablet Take 1 tablet by mouth once daily. metoprolol succinate ER (TOPROL XL) 25 mg 24 hr tablet Take 1 tablet by mouth once daily. spironolactone (ALDACTONE) 25 mg tablet Take 1 tablet by mouth once daily. rivaroxaban (XARELTO) 20 mg tablet Take 1 tablet by mouth daily with dinner. Insulin Voca, Disposable, (PEN NEEDLE) 32 gauge x 5/32 Inject 1 Each subcutaneously q 24 HR. Give with each insulin administration. rosuvastatin (CRESTOR) 20 mg tablet Take 1 tablet by mouth once daily. flash glucose sensor (FREESTYLE CL 14 DAY SENSOR) kit Apply sensor to arm every 14 days. flash glucose scanning reader (FREESTYLE CL 14 DAY READER) 1 Each once daily. escitalopram oxalate (LEXAPRO) 10 mg tablet Take 1 tablet by mouth once daily. clopidogrel (PLAVIX) 75 mg tablet Take 1 tablet by mouth once daily. TRUE METRIX GLUCOSE TEST STRIP test strip Use to test glucose 4 times daily, as directed. DX: E11.42, E11.65, Z79.4 UNIFINE PENTIPS PLUS 32 gauge x 5/32 Use for insulin pen injections 5 times daily, as directed. DX: E11.42, E11.65, Z79.4 lancets (UNILET SUPER THIN LANCETS) 30 gauge Use to test glucose 4 times daily, as directed. DX: E11.42, E11.65, Z79.4 ACETAMINOPHEN (TYLENOL ORAL) Take 1-2 tablets by mouth every 6 hours as needed. aspirin, enteric coated (ASPIRIN, ENTERIC COATED) 325 mg EC tablet Take 325 mg by mouth once daily. MULTIVIT &MINERALS/FERROUS FUM (MULTI VITAMIN ORAL) Take by mouth once daily. diclofenac (VOLTAREN) 0.1 % ophthalmic solution Use 1 Drop in the left eye twice daily. (Patient not taking: Reported on 01/25/2023) ofloxacin (OCUFLOX) 0.3 % ophthalmic solution INSTILL 1 DROP INTO LEFT EYE 4 TIMES DAILY (Patient not taking: Reported on 01/25/2023) prednisoLONE acetate (PRED FORTE) 1 % ophthalmic suspension INSTILL 1 DROP INTO LEFT EYE 4 TIMES DAILY (Patient not taking: Reported on 01/25/2023) gabapentin (NEURONTIN) 400 mg capsule Take 1 capsule by mouth three times daily for 90 days. 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 Are you taking any blood thinners? Yes, Plavix Physical Examination: BP 146/66 Pulse 60 Ht 5' 4 (1.63m) Wt 160 lb (72.6kg) BMI 27.45 kg/(m^2). Physical Exam Constitutional: Appearance: Normal appearance. He is normal weight. HENT: Head: Normocephalic and atraumatic. Eyes: General: No scleral icterus. Extraocular Movements: Extraocular movements intact. Conjunctiva/sclera: Conjunctivae normal. Pupils: Pupils are equal, round, and reactive to light. Cardiovascular: Rate and Rhythm: Normal rate and regular rhythm. Pulses: Normal pulses. Heart sounds: Normal heart sounds. Pulmonary: Effort: Pulmonary effort is normal. Breath sounds: Normal breath sounds. Abdominal: General: Abdomen is flat. Bowel sounds are normal. Palpations: Abdomen is soft. Tenderness: There is no abdominal tenderness. Musculoskeletal: Cervical back: Normal range of motion and neck supple. Comments: In wheelchair, Konrad AKA noted Skin: General: Skin is warm and dry. Coloration: Skin is not jaundiced. Neurological: General: No focal deficit present. Mental Status: He is alert and oriented to person, place, and time. Psychiatric: Mood and Affect: Mood normal. Behavior: Behavior normal. Thought Content: Thought content normal. Judgment: Judgment normal. Assessment/Plan (R19.5) Positive FIT (fecal immunochemical test) (primary encounter diagnosis) 1. Positive FIT (fecal immunochemical test) -- Patient with positive FIT, denies GI symptoms today. -- Will try to get recent colonoscopy from [facility] ?2020. -- Consider repeat colonoscopy Follow up in office PRN. Recommended to please call office/go to ER if fever, chills, chest pain, SOB, diarrhea, nausea, emesis, worsening abdominal pain, dehydration occurs I spent a total of 20 minutes on the date of the service which included preparing to see the patient, [id number] patient care, completing clinical documentation, obtaining and/or reviewing separately obtained history, performing a medically appropriate examination, and counseling and educating the patient/family/caregiver. Jessica Patel PA-C January 25, 2023 2:29 PM documented in this encounterUniversity Hospitals Geaug[facility] Center05-03-2023 History of Present illness Narrative* Kath Horton PT - 01/20/2023 5:52 PM EDT Episode Visit Count: 18 Therapist That Will Accept/Oversee The Plan Of Care: Kath Horton Start of Care Date: 11/03/22 Onset Date: 05/05/22 (L AKA) Plan of Care Certification Date: 12/29/22 Next Certification Due Date: 02/27/23 REHABILITATION AND SPORTS THERAPY PHYSICAL THERAPY TREATMENT NOTE ASSESSMENT: Shilo Hathaway tolerated the session with fatigue. Challenged with fluidity of gait when walking when using load bearing unlocking feature. He demonstrated improvements in distance with loadbearing feature. The patient will continue to benefit from ongoing skilled physical therapy to progress toward set goals. PLAN FOR NEXT VISIT: Continue with emphasis on optimal gait and safety SUBJECTIVE: Eye surgery was cancelled. 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 and is load bearing knee. Is temporary leg. Pain: see above OBJECTIVE MEASURES WITH LEVEL OF FUNCTION: Good effort and motivation TREATMENT: Gait Trainin: ambulation with FWW with prosthesis unlocked working on stride and pace 50 ft, 115 ft, 115 ft, 40 ft (heavy cues for technique to appropriately unlock and lock prosthetic during gait) Skilled Intervention: Gait belt utilized during session for safety. Correct performance of home program was facilitated with verbal and visual cueing. Billing Gait Training Treatment Minutes: 43 Total Treatment Time Minutes (timed/untimed): 47 Kath Horton PT documented in this encounterUniversity Hospitals Geauga Medical Center04-20-2023 History of Present illness Narrative* Kath Horton PT - 01/07/2023 2:18 PM EDT Episode Visit Count: 17 Therapist That Will Accept/Oversee The Plan Of Care: Kath Horton Start of Care Date: 11/03/22 Onset Date: 05/05/22 (L AKA) Plan of Care Certification Date: 12/29/22 Next Certification Due Date: 02/27/23 REHABILITATION AND SPORTS THERAPY PHYSICAL THERAPY TREATMENT NOTE ASSESSMENT: Shilo Hathaway tolerated the session with intermittent residual limb pain. Tish/doffed prosthesis multiple times to optimize fit and decrease pain. Limited tolerance to gait with quad cane today due to pain and fatigue. He demonstrated good tolerance to gait with FWW. The patient will continue to benefit from ongoing skilled physical therapy to progress toward set goals. PLAN FOR NEXT VISIT: Jasbir with emphasis on optimal gait and safety SUBJECTIVE: Painful for one full day after last visit. Today better day. Pain 09/29. Still very tender. Pain: see above OBJECTIVE MEASURES WITH LEVEL OF FUNCTION: No skin break down TREATMENT: Therapeutic Activity: 1: sit to stand with quad cane x 5 Skilled Intervention: Correct performance of home program was facilitated with verbal and visual cueing. Gait Trainin: ambulation with LBQC 5 ft x 8 2: ambulation wtih FWW with prosthesis unlocked working on stride and pace 20 ft, 40 ft, 40 ft, 40 ft, 40 ft Skilled Intervention: Gait belt utilized during session for safety. Billing Therapeutic Activity Treatment Minutes: 5 Gait Training Treatment Minutes: 55 Total Treatment Time Minutes (timed/untimed): 65 Kath Horton PT documented in this encounterUniversity Hospitals Geauga Medical Center04-13-2023 History of Present illness Narrative* Kath Horton PT - 12/31/2022 2:54 PM EDT Episode Visit Count: 15 Therapist That Will Accept/Oversee The Plan Of Care: Kath Horton Start of Care Date: 11/03/22 Onset Date: 05/05/22 (Konrad GLORIA) Plan of Care Certification Date: 12/29/22 Next Certification Due Date: 02/27/23 REHABILITATION AND SPORTS THERAPY PHYSICAL THERAPY TREATMENT NOTE ASSESSMENT: Shilo Hathaway tolerated the session with fatigue and pain in stump. Brief rests as neededfor pain/fatigue. Improved ability with sit-stand with only cane usage today, but does require cuesfor sequencing and positioning. Much improved by end of session. Able to stand without PRODUCTION ASSEMBLY SUPERVISOR for extended duration today. The patient will continue to benefit from ongoing skilled physical therapy to progress toward set goals. PLAN FOR NEXT VISIT: consider lateral stepping at mat, step to with cane at mat (quad cane large) SUBJECTIVE: Did fine with last session. Leg is painful today. Pain: see above OBJECTIVE MEASURES WITH LEVEL OF FUNCTION: Good effort and motivation Visible shaking right LE intermittently during session Requires cues/mirror for midline when standing TREATMENT: Therapeutic Exercise: 1: ab brace with november 19 in seated Skilled Intervention: Patient was educated in proper exercise technique and purpose for exercises. Skilled judgment was provided in selection of appropriate interventions. Provided written instruction for home exercise program to facilitate proper performance and compliance. Correct performance of therapeutic exercises was facilitated with verbal and visual cuing. Therapeutic Activity: 1: sit-stand vs mirror with quad cane 5 x 5 with cues for optimal technique 2: stand with quad cane vs mirror equal WB 1min, 2 min, 1 min, 1 min 3: standing with quad cane L step out and return 3 x 4 4: standing vs mirror without PRODUCTION ASSEMBLY SUPERVISOR, 1 min , 1 min , 1 min 5: lateral shifting vs mirror emphasis left 2 x 10 6: finding neutral vs mirror 7: reviewed foot and cane placement for sit -stand transfers 8: staggered stance wtih cane L weight shift to left 4 x Skilled Intervention: Insured patient safety with use of gait belt Billing Therapeutic Exercise Treatment Minutes: 2 Therapeutic Activity Treatment Minutes: 38 Total Treatment Time Minutes (timed/untimed): 45 Kath Horton PT documented in this encounterUniversity Hospitals Geauga Medical Center04-12-2023 History of Present illness Narrative* Elda Siddiqui RN - 12/30/2022 7:30 AM EDT Pt presents for lexiscan nuclear stress test. Upon evaluating pt's chart it appears pt had negativestress test 05/11. There is a note on 09/[address] Moran stating pt does not need to have anotherstress test due to his recent test in april. Called [facility] and confirmed with Jessica KARIMI that patient does not need this stress test. Pt educated that nuclear resting images will be good for30 days and that he should reach out to [facility] if he has any further questions. IV discontinued. * RT Hakeem(R) - 12/30/2022 7:30 AM EDT RADIOLOGY SERVICE PROGRESS NOTE SERVICE DATE: 12/30/2022 SERVICE TIME: 9:13 AM PATIENT IDENTITY VERIFICATION COMPLETED USING TWO (2) STANDARD IDENTIFIERS: Name and Date of confirmed by patient verbally FALL SCREENING: Has the patient had 2 falls in the last year or 1 fall with injury or currently using an Ambulatory Assistive Device (Walker, Cane, Wheelchair, Crutches, etc.)? No PATIENT GENDER DATA: .male ALLERGIES: Reviewed and unchanged MEDICATIONS REVIEWED: Yes PATIENT RELEVANT IMPLANT DATA REVIEWED: Not Applicable CREATININE: Creatinine Date Value Ref Range Status 08/06/2022 1.15 0.73 - 1.22 mg/dL Final 05/26/2022 0.69 0.6 - 1.3 MG/DL Final 05/17/2022 0.73 0.73 - 1.22 mg/dL Final Estimated Glomerular Filtration Rate Date Value Ref Range Status 08/06/2022 68 >=60 mL/min/1.73m Final Comment: Estimated Glomerular Filtration Rate (eGFR) is calculated using the 2020 CKD-EPI creatinine equation. This equation utilizes serum creatinine, sex, and age as parameters. The creatinine assay has traceable calibration to isotope dilution- mass spectrometry. Refer to KDIGO guidelines for clinical interpretation. In patients with unstable renal function, e.g. those with acute kidney injury, the eGFRmay not accurately reflect actual GFR. eGFR- (POCT) Date Value Ref Range Status 09/23/2021 >60 mL/min/1.73 m2 Final P.O.C.T. RESULTS: N/A December 30, [address] PERFORMED: No IV SITE: Ambulatory: A peripheral IV was started in the Right hand with a Angio cath: 22 gauge. POST EXAM PIV STATUS: Discontinued PROCEDURE TYPE: NM Stress: 13.1 mCi [id number] was administered IV for Rest Imaging at 0750 by ty. N/a mCi [id number] was administered IV for Stress Imaging at n/a by n/a. ADMINISTRATION TIME: n/a PATIENT DISCHARGED TO: Ambulatory patient, left NM department area. A Diagnostic radioactive procedure has taken place, with no further precautions necessary other than routine body substance precautions. More information regarding radiation safety can be found usingthis link: [email or web address] SIGNATURE: RT Hakeem(R) PATIENT NAME: Shilo Hathaway DATE: December 30, 2022 TIME: 9:13 AM PAGER/CONTACT #: documented in this encounterUniversity Hospitals Geauga Medical Center04-12-2023 History of Present illness Narrative* Ronna Leger RN - 12/30/2022 6:03 AM EDT ACM DRAKE RN Action/FYI: Medication Adherence review completed per request of [facility]. NO PROVIDER ACTION REQUIRED Please see requests in the Summary/Findings section below Patient identified by name and date of . Patient Attributed To: E Payer: [employer] [place] Reason for review or outreach: Medication Adherence Medication Adherence Review Details: Hypertension Summary / Findings: Lisinopril was due for refill on: 12/10/22 at [facility] Action Taken: Data submitted to [employer] [place] message to patient Contact made with patient: No, Chart review only. Signature: Ronna Leger RN documented in this encounterUniversity Hospitals Geauga Medical [facility] History of Present illness Narrative* Anne Villalpando MD - 12/15/2022 5:51 PM EDT Shilo Hathaway 71 year old male S/P Left axillary to left profunda to right profunda bypass and redo groin incisions; Left above knee amputation PROCEDURE: L ax-bifem bypass by Dr. Villalpando; L AKA by Dr. Murray DATE: 05/01/22; 05/05/22 SUBJECTIVE: Mr. Hathaway is doing well after his surgeries. 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 He has excellent signals in his R LE. He has some numbness and tingling in his RLE that may be phantom pains but may also be related to his history of sciatica. No wounds, no rest pain. Just starting to use his prosthetic on the left. EXAM: Neurological Exam: Normal; Awake, alert, oriented, pleasant, and appropriate; Strength and sensation grossly intact Left Clavicular Incision: Clean, dry, well approximated, and well healed Left Groin Incision: Clean, dry, well approximated, and well healed Right Groin Incision: Clean, dry, well approximated, and well healed Left Stump: Well healed Lungs: CTA B CV: RRR Pulses: R DP/PT doppler Signals PVR - R LE 12/15/21 - 0.90 IMPRESSION: Doing well post op. Will continue to follow up and work with prosthetics. Will follow up in 6 months with PVR. PLAN: Shilo will follow-up in 6 months with repeat PVR. He is encouraged to call with any questions or concerns in the meantime. The patient is currently taking a statin: Yes The patient is currently taking aspirin: Yes documented in this encounterUniversity Hospitals [facility]03-27-2023 History of Present illness Narrative* Eva Awad, PROPERTY UNDERWRITER - 12/14/2022 3:46 PM EDT Episode Visit Count: 13 Therapist That Will Accept/Oversee The Plan Of Care: Kath Horton Start of Care Date: 11/03/22 Onset Date: 05/05/22 (Konrad GLORIA) Plan of Care Certification Date: 12/01/22 Next Certification Due Date: 01/02/23 Patient Identified by Name and Date of : Yes REHABILITATION AND SPORTS THERAPY PHYSICAL THERAPY TREATMENT NOTE ASSESSMENT: Shilo Hathaway tolerated the session with no issues. He demonstrated good ability to perform prone exercises. Pt negotiated 3 steps today. Reports he bumps up and pulls on rails at home. Thepatient will continue to benefit from ongoing skilled physical therapy to progress toward set goals. PLAN FOR NEXT VISIT: continue with gait training and strenghtening, balance. Continue with stup thru pattern as able. SUBJECTIVE: Patient Reason for Visit: Pt reports no issues today Pain: Pain Pain Level: 0 Post Treatment Pain Post Treatment Pain Level: No Change OBJECTIVE MEASURES WITH LEVEL OF FUNCTION: L LE prosthetic, seated in wheel chair. TREATMENT: Therapeutic Exercise: 1: SLR 2# x 12 2: hip flexion 2# x 12 3: prone hamstring curls x 12 4: prone L hip ext x 12 5: prone press ups 3x on hands hold 45 sec. 6: L hip abd x 12 7: R hamstring stretch with strap 3 x 20 sec 8: bridging x 10 Skilled Intervention: Patient was educated in proper exercise technique and purpose for exercises. Skilled judgment was provided in selection of appropriate interventions. Correct performance of therapeutic exercises was facilitated with verbal cuing. Gait Trainin: ambulation with walker, CGA focusing on step through gait pattern 50'x 2 2: 3 steps 4 with B rails CGA and cues for sequence. Skilled Intervention: Patient was provided contact guard assistance during pre- gait/gait training to prevent falls and insure safety. Gait belt utilized during session for safety. Skilled judgment used to assess proper sizing of assistive device. Education provided to patient regarding the proper sequence for stair negotiation. Billing Therapeutic Exercise Treatment Minutes: 20 Therapeutic Activity Treatment Minutes: 5 Gait Training Treatment Minutes: 20 Total Treatment Time Minutes (timed/untimed): 45 Eva Awad PTA documented in this encounterUniversity Hospitals Ge[facility] Center03-21-2023 History of Present illness Narrative* Kath Horton, PT - 12/08/2022 2:45 PM EDT Episode Visit Count: 11 Therapist That Will Accept/Oversee The Plan Of Care: Kath Horton Start of Care Date: 11/03/22 Onset Date: 05/05/22 (Konrad GLORIA) Plan of Care Certification Date: 12/01/22 Next Certification Due Date: 01/02/23 REHABILITATION AND SPORTS THERAPY PHYSICAL THERAPY TREATMENT NOTE ASSESSMENT: Shilo Linus Hathaway tolerated the session with decreased endurance and fatigue. He demonstratedimprovements in walking distance and quality of gait. Does demonstrate toe catch and arm fatigue with extended gait. The patient will continue to benefit from ongoing skilled physical therapy to progress toward set goals. PLAN FOR NEXT VISIT: continue with gait training and strenghtening, balance SUBJECTIVE: Patient Reason for Visit: No falls or close calls. Pain: see above OBJECTIVE MEASURES WITH LEVEL OF FUNCTION: Good effort and motivation TREATMENT: Therapeutic Activity: 1: standing with alternating arm lift 1 hand on walker 5 times 2: standing balance no PRODUCTION ASSEMBLY SUPERVISOR 10 attempts, max 30 3: standing B UE lift x 10 without PRODUCTION ASSEMBLY SUPERVISOR Skilled Intervention: Correct performance of home program was facilitated with verbal and visual cueing. Gait belt for safety Gait Trainin: ambulation with FWW 120 ft, 126 feet Skilled Intervention: Gait belt utilized during session for safety. Correct performance of home program was facilitated with verbal and visual cueing. Billing Therapeutic Activity Treatment Minutes: 10 Gait Training Treatment Minutes: 30 Total Treatment Time Minutes (timed/untimed): 42 Kath Horton PT documented in this encounterUniversity Hospitals Geauga [facility] Center03-21-2023 Miscellaneous Notes* Telephone Encounter - Barb Jennings - 12/08/2022 10:38 AM EDT Patient is scheduled. * Telephone Encounter - Lyubov Prado APRN.CNP - 12/08/2022 9:08 AM EDT Please assist patient in scheduling with GI practice in [place]. Lyubov Prado APRN.CNP documented in this encounterUniversity Hospitals Geaug[facility] Center03-20-2023 Miscellaneous Notes* Telephone Encounter - Minoo Boone LPN - 12/07/2022 2:26 PM EDT LM for patient to call office and sent [facility] message. * Telephone Encounter - Paulina Severino MD - 12/07/2022 11:07 AM EDT Positive occult blood Need to see GI about colonoscopy Paulina Severino MD documented in this encounterUniversity Hospitals Geaug[facility] Center03-16-2023 History of Present illness Narrative* Kath Horton PT - 12/03/2022 2:31 PM EDT Episode Visit Count: 10 Therapist That Will Accept/Oversee The Plan Of Care: Kath Horton Start of Care Date: 11/03/22 Onset Date: 05/05/22 (Konrad GLORIA) Plan of Care Certification Date: 12/01/22 Next Certification Due Date: 01/02/23 REHABILITATION AND SPORTS THERAPY PHYSICAL THERAPY TREATMENT NOTE ASSESSMENT: Shilo Hathaway tolerated the session with fatigue and expected muscle soreness. He demonstrated improvements in gait quality requiring fewer cues during ambulation. Still needs to visual observe LE's for optimal step length. The patient will continue to benefit from ongoing skilled physical therapy to progress toward set goals. PLAN FOR NEXT VISIT: continue with gait training and strenghtening SUBJECTIVE: No issues with skin thus far. Pain wiht tish/doff prosthesis. Pain: see above OBJECTIVE MEASURES WITH LEVEL OF FUNCTION: Good effort and motivation Trunk flexion with gait TREATMENT: Gait Trainin: ambulation with FWW cues for appropriate step length 72 ft, 80 ft, 82 ft Skilled Intervention: Gait belt utilized during session for safety. Correct performance of home program was facilitated with verbal and visual cueing. Therapeutic Activity: 1: sit to stand with FWW, practicing locking and unlocking brace x 2: standing FWW weight shifting all directions 10 x ea 3: Standing with step return with FWW 10 x ea Skilled Intervention: Proper patient guarding to prevent falls/increase patient safety with contactguard assistance to assist. Billing Therapeutic Exercise Treatment Minutes: 10 Gait Training Treatment Minutes: 35 Total Treatment Time Minutes (timed/untimed): 50 Kath Horton PT documented in this encounterUniversity Hospitals Geaug[facility] Center03-14-2023 History of Present illness Narrative* Kath Horton PT - 12/01/2022 2:26 PM EDT Episode Visit Count: 9 Therapist That Will Accept/Oversee The Plan Of Care: Kath Horton Start of Care Date: 11/03/22 Onset Date: 05/05/22 (Konrad GLORIA) Plan of Care Certification Date: 12/01/22 Next Certification Due Date: 01/02/23 REHABILITATION AND SPORTS THERAPY PHYSICAL THERAPY PROGRESS REPORT PLAN OF CARE UPDATE: Assessment: Pt demonstrates improving ability to tish/doff prosthesis, perform sit-stand, gait, andimproving strength. Did demonstrate regressed DF AROM today and encouraged continued ankle strengthand calf stretch. Still requires cues for optimal gait with FWW, tends to step too far into walker,but overall quality and distance have improved. Current prognosis is Good due to: current objective clinical presentation, good support system/ coping skills . He will benefit from continued skilled therapy services to meet the updated goals for this plan of care as noted below. Goals for Episode of Care: created on 11/03/22 through 01/02/23 Updated 12/01/2022 Gait with FWW 250 ft. progressing [place] in home exercise program. progressing Patient will decrease pain rating by 2 points to meet minimal clinical important difference for numeric pain rating scale. Continue to assess Patient will increase active ROM of right ankle/foot to + 5 degrees or better to assist with gait. Regressed this date, encouraged stretching Patient will demonstrate increase in B hip, right knee, right ankle strength to 5/5 during manual muscle testing in order to improve function for prior functional tasks. Progressing overall Patient will increase flexibility of right HS and B hip flexor to min restriction or better to improve ability to maintain proper posture, improve mechanics, and decrease pain. Progressing for STARR Improve postural awareness. 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 Continue to assess Planned Interventions, Frequency, and Duration: 2x/week, 4 weeks Total Number of Visits Planned: 8 Patient to be seen for Therapeutic exercise (76202), Neuromuscular re-education (74206), Manual therapy (89477), Therapeutic activities (48601), Self-assisted management (49818), Gait Training (30508), Patient/Family/Caregiver Education PLAN FOR NEXT VISIT: continue with gait training and strenghtening SUBJECTIVE: . Saw prothetist. Wants to try walking with affected leg first. Did cut down some. Still feels like pinching when steated. Will follow up in a few weeks. Leg painful today, out in cold. Continues to note flutuating issues with tish/doff prosthesis. Working up time of prosthesis wear. Feels like making progress. Pain: see above PROMIS Scales T-scores: mean of general population = 50. 5 points is clinically meaningfully difference Percentiles provide an indication of how the patient's score ranks in relation to the general population. Higher percentile rankings indicate better function/quality of life. 50th percentile is the average of the general population and indicates half of respondents had a worse score. OBJECTIVE MEASURES WITH LEVEL OF FUNCTION: LE AROM R Ankle Dorsiflexion: (lacking 10 degrees) LE Flexibility Flexibility: (R HS -50 degrees, moderate R quad and B hip flexor tightness) LE Strength R Hip Flexion (L2): 5/5 R Hip ABduction: 4/5 R Knee Extension (L3): 5/5 R Knee Flexion: 5/5 R Ankle Dorsiflexion (L4): 4-/5 R Ankle Plantar Flexion: 4+/5 R Ankle Inversion: 4/5 R Ankle Eversion: 4/5 L Hip Flexion (L2): 5/5 L Hip ABduction: 4+/5 TREATMENT: Therapeutic Exercise: 1: recheck per above 2: discussed recheck findings and encouraged consistent HEP performance especially calf stretching R Skilled Intervention: Skilled judgment was provided in selection of appropriate interventions. Gait Trainin: ambulation with FWW 72 ft, 76 ft cues not to walk too far into walker Skilled Intervention: Gait belt utilized during session for safety. Billing Therapeutic Exercise Treatment Minutes: 32 Gait Training Treatment Minutes: 8 Total Treatment Time Minutes (timed/untimed): 45 Kath Horton PT documented in this encounterUniversity Hospitals [facility]03-07-2023 History of Present illness Narrative* Sandra Alba, ENIO - 11/24/2022 2:48 PM EST Episode Visit Count: 7 Therapist That Will Accept/Oversee The Plan Of Care: Kath Horton Start of Care Date: 11/03/22 Onset Date: 05/05/22 (Konrad GLORIA) Plan of Care Certification Date: 11/03/22 Next Certification Due Date: 01/02/23 REHABILITATION AND SPORTS THERAPY PHYSICAL THERAPY TREATMENT NOTE ASSESSMENT: Shilo Hathaway tolerated the session with decreased endurance and fatigue. He demonstrateddifficulty with right resided dorsiflexion and eversion. Patient exhibits improving ability to tish/doff prosthetic. The patient will continue to benefit from ongoing skilled physical therapy to progress toward set goals. PLAN FOR NEXT VISIT: continue with gait training and strenghtening SUBJECTIVE: Patient Reason for Visit: Patient reports tenderness on bottom of residual limb. Patient feels residual limb swells by evening daily Pain: Pain Pain Level: 0 Post Treatment Pain Post Treatment Pain Level: (Pt reports discomfort in groin due to prosthetic fitting) OBJECTIVE MEASURES WITH LEVEL OF FUNCTION: Patient ambulates with FWW with forward flexed posture, mostly with a downward glance. Step to pattern, difficulty with turning direction TREATMENT: Therapeutic Exercise: 1: green ankle PF 10 x 2 2: R DF , eversion, inversion with red x 15 3: Supine L hip abduction with green x 10 4: Supine L hip flexion with 2 # cuff weight x 10 5: R SLR x15 7: R hamstring stretch with green strap 3 x 30 seconds 8: R hip flexor stretch on EOB 2 minutes 10: prone push up on hands 3 x 20 sec. 11: prone prop up on forearms 4 minutes Skilled Intervention: Patient was educated in proper exercise technique and purpose for exercises. Skilled judgment was provided in selection of appropriate interventions. Correct performance of therapeutic exercises was facilitated with verbal and visual cuing. Manual Therapy: 1: manual L hip flexor stretch 3 x 30 seconds Skilled Intervention: Manual skills to improve joint mobility, ROM, and decrease pain. Utilized anatomy knowledge of the therapist, and assessment of patient's response to intervention. Gait Trainin: tish/doff prosthesis with SBA on/off, utilizes walker for donning 2: Ambulation with FWW x 60 feet with CGA 4: Skin check of left residual limb, without issue noted Skilled Intervention: Facilitated proper gait cycle with the use of verbal and visual cues for correction of gait deviations identified in the objective section above. Gait belt utilized during session for safety. Skilled judgment used to assess proper use of assistive device. Billing Therapeutic Exercise Treatment Minutes: 37 Manual TherapyTreatment Minutes: 3 Gait Training Treatment Minutes: 18 Total Treatment Time Minutes (timed/untimed): 58 Sandra Alba PTA documented in this encounterUniversity Hospitals [facility]03-02-2023 History of Present illness Narrative* Eva Awad, PROPERTY UNDERWRITER - 11/19/2022 2:32 PM EST Episode Visit Count: 6 Therapist That Will Accept/Oversee The Plan Of Care: Kath Horton Start of Care Date: 11/03/22 Onset Date: 05/05/22 (L AKA) Plan of Care Certification Date: 11/03/22 Next Certification Due Date: 01/02/23 Patient Identified by Name and Date of : Yes REHABILITATION AND SPORTS THERAPY PHYSICAL THERAPY TREATMENT NOTE ASSESSMENT: Shilo Hathaway tolerated the session with no issues. He demonstrated improvements in gait,sit to stand and turning using proper foot placement. The patient will continue to benefit from ongoing skilled physical therapy to progress toward set goals. PLAN FOR NEXT VISIT: continue with gait training and strenghtening SUBJECTIVE: Patient Reason for Visit: Pt reports no new concerns from last session. Still some difficulty getting into car with prosthetic. Has walked a little at home(very short distance). Compliantwith his HEP. Pain: Pain Pain Level: 0 Post Treatment Pain Post Treatment Pain Level: 0 OBJECTIVE MEASURES WITH LEVEL OF FUNCTION: Pt in wheelchair, L prosthetic. TREATMENT: Therapeutic Exercise: 1: red band ankle ROM all planes x 15 2: Sidelying L hip abd x 15 3: Sidelying L hip flexion x 15 4: Sidelying L hip ext x 15 5: R SLR x15 6: bridges x 10 7: passive hamstring stretch x 20 sec 8: passive abd stretch 2 x 20 sec 9: prone prop up on forearms 3 min 10: prone push up on hands 2 x 20 sec. Skilled Intervention: Patient was educated in proper exercise technique and purpose for exercises. Skilled judgment was provided in selection of appropriate interventions. Correct performance of therapeutic exercises was facilitated with verbal cuing. Gait Trainin: tish/doff prosthesis with min assist on and SBA off 3: Ambulation with FWW, step to pattern, heavy UE support, 20ft, 30ft, 12ft 4: Skin check of left residual limb, without issue noted Skilled Intervention: Patient was provided contact guard assistance during pre- gait/gait training to prevent falls and insure safety. Facilitated proper gait cycle with the use of verbal cues for correction of gait deviations identified in the objective section above. Gait belt utilized during session for safety. Education provided to patient regarding the proper sequence when turning to sit down. Billing Therapeutic Exercise Treatment Minutes: 30 Gait Training Treatment Minutes: 15 Total Treatment Time Minutes (timed/untimed): 45 Eva Awad PTA documented in this encounterUniversity Hospitals Geaug[facility] Center02-28-2023 History of Present illness Narrative* Sandra Alba PTA - 11/17/2022 2:49 PM EST Episode Visit Count: 5 Therapist That Will Accept/Oversee The Plan Of Care: Kath Horton Start of Care Date: 11/03/22 Onset Date: 05/05/22 (Konrad GLORIA) Plan of Care Certification Date: 11/03/22 Next Certification Due Date: 01/02/23 Patient Identified by Name and Date of : Yes REHABILITATION AND SPORTS THERAPY PHYSICAL THERAPY TREATMENT NOTE ASSESSMENT: Shilo Hathaway tolerated the session with fatigue and expected muscle soreness. He demonstrated difficulty with donning prosthetic and unlocking prosthetic. The patient will continue to benefit from ongoing skilled physical therapy to progress toward set goals. PLAN FOR NEXT VISIT: continue with gait training and strenghtening SUBJECTIVE: Patient Reason for Visit: Patient reports difficulty with donning /doffing prosthetic, feels that left prosthetic is too long. Patient is not walking at home, concerned he would fall. Pain: Pain Pain Level: 1 Pain Location: Thigh - Left Post Treatment Pain Post Treatment Pain Level: 2 Post Treatment Pain Location: Groin - Left (due to fit of prosthetic) OBJECTIVE MEASURES WITH LEVEL OF FUNCTION: Patient ambulates with step to pattern with FWW, heavy upper extremity support TREATMENT: Therapeutic Exercise: 5: side lying L hip abduction 6: R resisted ankle , all planes , red x 10 each 8: Supine right hamstring stretch with green stretch belt 30 seconds x 3 9: prone prop up hold 4 min. for hip flexor stretch 10: prone hip ext R/L x 10 Skilled Intervention: Patient was educated in proper exercise technique and purpose for exercises. Skilled judgment was provided in selection of appropriate interventions. Correct performance of therapeutic exercises was facilitated with verbal and visual cuing. Gait Trainin: tish/doff prosthesis with min assist on and SBA off 2: Weight shifts with prothetic donned , utilizing FWW for support, even and staggered positions x 10 each 3: Ambulation with FWW, step to pattern, heavy UE support, 30 feet x 1 4: Skin check of left residual limb, without issue noted Skilled Intervention: Patient was provided contact guard assistance during pre- gait/gait training to prevent falls and insure safety. Facilitated proper gait cycle with the use of verbal and visual cues for correction of gait deviations identified in the objective section above. Gait belt utilized during session for safety. Skilled judgment used to assess proper sizing and proper use of assistive device. Billing Therapeutic Exercise Treatment Minutes: 25 Gait Training Treatment Minutes: 22 Total Treatment Time Minutes (timed/untimed): 51 Sandra Alba PTA documented in this encounterUniversity Hospitals Geaug[facility] Center02-24-2023 Miscellaneous Notes* Telephone Encounter - Teagan Alcantara - 11/13/2022 8:29 AM EST 1st attempt, left voicemail. documented in this encounterUniversity Hospitals Geauga [facility] Center02-23-2023 History of Present illness Narrative* Eva Awad PTA - 11/12/2022 2:01 PM EST Episode Visit Count: 4 Therapist That Will Accept/Oversee The Plan Of Care: Kath Horton Start of Care Date: 11/03/22 Onset Date: 05/05/22 (Konrad GLORIA) Plan of Care Certification Date: 11/03/22 Next Certification Due Date: 01/02/23 Patient Identified by Name and Date of : Yes REHABILITATION AND SPORTS THERAPY PHYSICAL THERAPY TREATMENT NOTE ASSESSMENT: Shilo Linus Hathaway tolerated the session with expected muscle soreness. Soreness in left LE with weightbearing activity. Reports feeling the suction when he weight bears through prosthetic. The patient will continue to benefit from ongoing skilled physical therapy to progress toward set goals. PLAN FOR NEXT VISIT: Continued practice as needed for tish/doff brace. Sit to stand with practice unlocking prosthesis to sit as needed. Weight shifting and taking steps as tolerated. Review and progress strength therex to tolerance. SUBJECTIVE: Patient Reason for Visit: Pt feeling good today, no changes from last session. Reports increased difficulty donning prosthetic today. getting in car has been more smoother of late. He made an appt with his tangled yarn spool straightener in November. Pain: Pain Pain Level: 0 OBJECTIVE MEASURES WITH LEVEL OF FUNCTION: Gait Gait Distance (feet): 15ft x 2 Gait Device: Wheeled Walker Gait Observation: cues for smaller steps and asure L foot is flat prior to taking another step. Tolerated exercises well, still lacking DF strength in R foot, yellow band is difficult in that direction. TREATMENT: Therapeutic Exercise: 1: Yellow ther band 4 ways x 10 2: 2lb weight LAQ x 15 3: 2lb weight seated hip flexion x 10 4: hooklying hip flexion x 10 B 5: L hip abd x 10 6: Prone hamstring curl with yellow band 10x 7: L hip flexion supine x 10 8: hamstring stretch self guided in supine 2 x 20 sec 9: prone prop up hold 3 min. 10: prone hip ext R/L x 10 Skilled Intervention: Patient was educated in proper exercise technique and purpose for exercises. Skilled judgment was provided in selection of appropriate interventions. Correct performance of therapeutic exercises was facilitated with verbal cuing. Gait Training: Skilled Intervention: Patient was provided contact guard assistance during pre- gait/gait training to prevent falls and insure safety. Skilled judgment used to assess proper use of assistive device. Billing Therapeutic Exercise Treatment Minutes: 30 Gait Training Treatment Minutes: 15 Total Treatment Time Minutes (timed/untimed): 45 Eva Awad PTA documented in this encounterUniversity Hospitals Geaug[facility] Center02-21-2023 History of Present illness Narrative* Eva Awad PTA - 11/10/2022 2:05 PM EST Episode Visit Count: 3 Therapist That Will Accept/Oversee The Plan Of Care: Kath Horton Start of Care Date: 11/03/22 Onset Date: 05/05/22 (Konrad GLORIA) Plan of Care Certification Date: 11/03/22 Next Certification Due Date: 01/02/23 Patient Identified by Name and Date of : Yes REHABILITATION AND SPORTS THERAPY PHYSICAL THERAPY TREATMENT NOTE ASSESSMENT: Shilo Hathaway tolerated the session with expected muscle soreness. He demonstrated improvements in exercise tolerance and prone lying. Pt able to side step R/L forward and turning to table today. Pt feels prosthetic is too long and is irritating left groin area. The patient will continue to benefit from ongoing skilled physical therapy to progress toward set goals. PLAN FOR NEXT VISIT: Continued practice as needed for tish/doff brace. Sit to stand with practice unlocking prosthesis to sit as needed. Weight shifting and taking steps as tolerated. Review and progress strength therex to tolerance. SUBJECTIVE: Pt denies pain today, reports has not has chance to use yellow band due to having a fall. Reports difficulty getting into car today. Pain: Pain Pain Level: 0 Post Treatment Pain Post Treatment Symptoms: Pain not rated, slight pain in L dorsom of LE from donning prosthetic OBJECTIVE MEASURES WITH LEVEL OF FUNCTION: Pt arrived self propelling in wheelchair. Prosthetic donned. Gait Gait: Minimal Assistance Gait Observation: 5 side steps R/L with seated break, 5 forward steps x 2 (turned with walker to sit). TREATMENT: Therapeutic Exercise: 1: LAQ 2 15 2: seated hip flexion 2 x 15 3: SAQ x 15 2# 4: hooklying hip flexion x 10 B 5: L hip abd x 10 6: Prone hamstring curl with yellow band 10x 7: prone prop hold 2 min. 8: hamstring stretch self guided in supine 2 x 20 sec 9: Ankle DF/PF yellow band 10x Skilled Intervention: Patient was educated in proper exercise technique and purpose for exercises. Skilled judgment was provided in selection of appropriate interventions. Correct performance of therapeutic exercises was facilitated with verbal and tactile cuing. Therapeutic Activity: 1: tish/doff prosthesis with min assist on and SBA off 2: weight shifting side to side Skilled Intervention: Proper patient guarding to prevent falls/increase patient safety with minimalassistance to assist patient while performing transfers and gait. 1: 5 side steps R/L with seated break, 5 forward steps x 2 (turned with walker to sit). Skilled Intervention: Patient was provided minimal assistance during pre- gait/gait training to prevent falls and insure safety. Gait belt utilized during session for safety. Skilled judgment used to assess proper sizing and proper use of assistive device. Education provided to patient regarding the proper sequence and negotiation. Therapeutic Exercise: 1: LAQ 2 15 2: seated hip flexion 2 x 15 3: SAQ x 15 2# 4: hooklying hip flexion x 10 B 5: L hip abd x 10 6: Prone hamstring curl with yellow band 10x 7: prone prop hold 2 min. 8: hamstring stretch self guided in supine 2 x 20 sec 9: Ankle DF/PF yellow band 10x Skilled Intervention: Patient was educated in proper exercise technique and purpose for exercises. Skilled judgment was provided in selection of appropriate interventions. Correct performance of therapeutic exercises was facilitated with verbal and tactile cuing. Therapeutic Activity: 1: tish/doff prosthesis with min assist on and SBA off 2: weight shifting side to side Skilled Intervention: Proper patient guarding to prevent falls/increase patient safety with minimalassistance to assist patient while performing gait training. Educated on proper/safe technique for activities performed today. Gait Trainin: 5 side steps R/L with seated break, 5 forward steps x 2 (turned with walker to sit). Skilled Intervention: Gait belt utilized during session for safety. Billing Therapeutic Exercise Treatment Minutes: 25 Therapeutic Activity Treatment Minutes: 10 Gait Training Treatment Minutes: 12 Total Treatment Time Minutes (timed/untimed): 47 Eva Awad PTA documented in this encounterUniversity Hospitals Geaug[facility]02-16-2023 History of Present illness Narrative* Kath Horton, PT - 11/05/2022 2:10 PM EST Episode Visit Count: 2 Therapist That Will Accept/Oversee The Plan Of Care: Kath Horton Start of Care Date: 11/03/22 Onset Date: 05/05/22 (Konrad GLORIA) Plan of Care Certification Date: 11/03/22 Next Certification Due Date: 01/02/23 REHABILITATION AND SPORTS THERAPY PHYSICAL THERAPY TREATMENT NOTE *spouse present for session ASSESSMENT: Shilo Hathaway tolerated the session with decreased endurance, fatigue, and expected muscle soreness. He demonstrated notable challenge with LE strengthening but no pain. Able to tish/doff prosthesis with less difficulty. Sit-stand with prosthesis I, but struggles with unlocking for sit. Changed to start to kick out left LE then unlock once seated. The patient will continue to benefit from ongoing skilled physical therapy to progress toward set goals. PLAN FOR NEXT VISIT: Continued practice as needed for tish/doff brace. Sit to stand with practice unlocking prosthesis to sit as needed. Weight shifting and side stepping as tolerated. Review and progress strength therexto tolerance. Consider weighted SAQ/LAQ R LE. SUBJECTIVE: Better with tolerance to prosthesis. Has worked up to 5 hours. No negative skin effects. Better wtih tish/doff of, but still a challenge. Pain: see above OBJECTIVE MEASURES WITH LEVEL OF FUNCTION: Good effort and motivation TREATMENT: Therapeutic Exercise: 1: *4 way ankle vs tband yellow 10 x ea 2: *calf stretch with towel 3 x 20 sec 3: *HS stretch with belt supine 3 x 20 sec 4: *prone prop x 1 min 5: *4 way SLR flexion 10 x (reviwed for to assist) Skilled Intervention: Patient was educated in proper exercise technique and purpose for exercises. Skilled judgment was provided in selection of appropriate interventions. Provided written instruction for home exercise program to facilitate proper performance and compliance. Correct performance of therapeutic exercises was facilitated with verbal and visual cuing. Therapeutic Activity: 1: tish/doff prosthesis with min assist on and SBA off 2: sit-stand with walker (only FWW available-PT stabilized) x 5 3: wieght shifting in walker lateral and FWD/BWD x 10 Skilled Intervention: Insured patient safety with use of gait belt and cues Billing Therapeutic Exercise Treatment Minutes: 30 Therapeutic Activity Treatment Minutes: 25 Total Treatment Time Minutes (timed/untimed): 60 Kath Horton PT documented in this encounterUniversity Hospitals Geaug[facility] Center02-14-2023 History of Present illness Narrative* Carin Connelly RN - 11/03/2022 4:13 PM EST ACM DRAKE RN Action/FYI: Medication Adherence barrier assessment per request of payer. 2021 Medication adherence failure. My chart Message sent to patient regarding overdue Lisinopril and Rosuvastatin. NO PROVIDER ACTION REQUIRED at this time. Patient identified by name and date of . Patient Attributed To: FLORENTIN Payer: [facility] Reason for review or outreach: Medication Adherence Medication Adherence Review Details: Cholesterol and Hypertension Summary / Findings: As per above Action Taken: Data submitted to [email or web address] message to patient Contact made with patient: No, Chart review only. Signature: Carin Connelly RN documented in this encounterUniversity Hospitals Geauga [facility] Center02-14-2023 History of Present illness Narrative* Kath Horton, PT - 11/03/2022 1:40 PM EST Episode Visit Count: 1 Therapist That Will Accept/Oversee The Plan Of Care: Kath Horton Start of Care Date: 11/03/22 Onset Date: 05/05/22 (L AKA) Plan of Care Certification Date: 11/03/22 Next Certification Due Date: 01/02/23 Patient Identified by Name and Date of : Yes REHABILITATION AND SPORTS THERAPY PHYSICAL THERAPY EVALUATION *spouse present for appointment PLAN OF CARE: Assessment: Shilo Hathaway presents s/p left AKA 05/05/22. Recently received prosthesis. Difficulty with tish/doff brace with c/o pinching and pain groin and distal. Has not ambulated with as of yet. Notable right ankle/foot weakness, mild B hip and right knee weakness, severe right HS and moderate B hip flexor tightness. Has standard walker at home and wheels available. Prognosis for therapy is Gooddue to: current objective clinical presentation, good support system/ coping skills . He will benefit from skilled therapy services to meet the goals established for this plan of care as noted below. Goals for Episode of Care: created on 11/03/22 through 01/02/23 Gait with FWW 250 ft. [place] in home exercise program. Patient will decrease pain rating by 2 points to meet minimal clinical important difference for numeric pain rating scale. Patient will increase active ROM of right ankle/foot to + 5 degrees or better to assist with gait. Patient will demonstrate increase in B hip, right knee, right ankle strength to 5/5 during manual muscle testing in order to improve function for prior functional tasks. Patient will increase flexibility of right HS and B hip flexor to min restriction or better to improve ability to maintain proper posture, improve mechanics, and decrease pain. Improve postural awareness. Pt will navigate 6 steps with PRODUCTION ASSEMBLY SUPERVISOR 1 rail I. Planned Interventions, Frequency, and Duration: Current Frequency: 2x/week Duration: 12 weeks Total Number of Visits Planned: 24 Planned Treatment Interventions: Therapeutic exercise (06624), Neuromuscular re- education (36842), Manual therapy (97333), Therapeutic activities (36829), Self- assisted management (80826), Gait Training (98244), Patient/Family/Caregiver Education PLAN FOR NEXT VISIT: Initiate HEP of ankle, hip and knee strength, HS and hip flexibility. Practicedonn/doff prosthesis. Practice sit-stand with walker, weight shifting, and locking and unlocking brace to ambulation short distances as tolerated/appropriate. Patient demonstrates good understanding of plan of care and treatment. The above goals and plan of care were discussed and agreed upon by patient/family. SUBJECTIVE: Shilo Hathaway is a 71 year old male seen today for L AKA. Acute therapy for 22 days. Using w/c or standard walker. Just received prosthesis. Much difficulty with tish/doff of prosthetic. HAs follow up scheduled. Not walking a this point. Standard walker. Does have wheels available. On occasion phantom pain. Tri level home, but can access all needs on one floor. 0 steps to enter home, but fpc goal need access 6 steps x 2 flights to access all areas of home. One rail. Has rails inbathroom. I with self care. Not back to cooking or walking yet. [facility] x 1 month. Not really doing much with HEP. Wearing prosthesis 2-3 hours. Does have parasthesias R foot/ankle, questions spinal issues. Medical History: Coronary artery disease involving mentasta coronary artery of mentasta heart Mixed hyperlipidemia Type 2 diabetes mellitus with diabetic neuropathy, with long-term current use of insulin ([facility]) Peripheral vascular disease ([facility]) History of stroke Hypertension Carotid artery stenosis Chronic anticoagulation NSTEMI (non-ST elevated myocardial infarction) ([facility]) Type 2 diabetes mellitus with diabetic peripheral angiopathy without gangrene, with long-term current use of insulin ([facility]) Acute right-sided low back pain with right-sided sciatica Sciatic nerve pain Ischemic foot ulcer due to atherosclerosis of mentasta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 ([facility]) S/P AKA (above knee amputation) unilateral, left ([facility]) S/P vascular bypass HFrEF (heart failure with reduced ejection fraction) ([facility]) Lung nodule Difficulty walking Weakness of both lower extremities 05/05/2022 Amputation of lower leg (Left) Left above knee amputation 04/29/2018 Exploration groin (Left) Left Groin Exploration, Thrombectomy of Left Limb of Axillo-Bifemoral Bypass, Revision of Left Femoral Anastomosis 12/25/2016 Past surgical history of (Bilateral) Axillo bifem bypass 11/2013 Stent placement MARVIN RCA 1998 Insert intracoronary stent RCA 1998 Stent placement BMS RCA 1997 Laparoscopy surg cholecystectomy Cholecystectomy, lap Date Unknown Angioplasty 1998, 2004, 2013 Date Unknown Carotid endarterectomy (Bilateral) right 02/2013, left 08/2001 Date Unknown Past surgical history of Carotid stenosis Date Unknown Past surgical history of ureter removal Pain: see above PROMIS Scales T-scores: mean of general population = 50. 5 points is clinically meaningfully difference Percentiles provide an indication of how the patient's score ranks in relation to the general population. Higher percentile rankings indicate better function/quality of life. 50th percentile is the average of the general population and indicates half of respondents had a worse score. T-scores: mean of general population = 50. 5 points is clinically meaningfully difference Percentiles provide an indication of how the patient's score ranks in relation to the general population. Higher percentile rankings indicate better function/quality of life. 50th percentile is the average of the general population and indicates half of respondents had a worse score. OBJECTIVE MEASURES WITH LEVEL OF FUNCTION: LE AROM R Ankle Dorsiflexion: (to neutral) LE Flexibility Flexibility: (R HS -62 degrees, moderate R quad and B hip flexor tightness) LE Strength Trunk Strength: UE strength grossly 5/5 R Hip Extension: 4-/5 R Hip Flexion (L2): 4+/5 R Hip ABduction: 4+/5 R Knee Extension (L3): 4+/5 R Knee Flexion: 4+/5 R Ankle Dorsiflexion (L4): 3+/5 R Ankle Plantar Flexion: 4/5 R Ankle Inversion: 4-/5 R Ankle Eversion: 4/5 L Hip Extension: 4/5 L Hip Flexion (L2): 5/5 L Hip ABduction: 4+/5 Mobility Bed To Chair: (bed mobility I) Wheelchair Mobility: (I) Education: Education Learning/educational needs: Home exercise program, Plan of Care TREATMENT: PT Treatment Interventions: Therapeutic Exercise, Neuromuscular Re-Education, Self-Long-Term Management, Gait Training, Therapeutic Activity Evaluation Therapeutic Activity: 1: tish/doff prosthesis with mod assist on and SBA off 2: sit-stand x 2 with walker Skilled Intervention: Insured patient safety with use of gait belt Correct performance of home program was facilitated with verbal and visual cueing. Self-Long-Term Management: 1: eval findings, POC, monitoring skin after prosthesis wear, follow up with tangled yarn spool straightener for adjustments as appropriate Skilled Intervention: Skilled judgment in the selection of proper modification for activity of daily living/home management based on clinical presentation, deficits, and needs. Billing * Evaluation Moderate Complexity: 1 Unit Therapeutic Activity Treatment Minutes: 8 Self-Care/Home Management Treatment Minutes: 8 Total Treatment Time Minutes (timed/untimed): 50 Kath Horton PT documented in this encounterUniversity Hospitals Geauga [facility] Center02-09-2023 Miscellaneous Notes* Telephone Encounter - Minoo Boone LPN - 10/29/2022 3:53 PM EST Received 10/29/2022 from [facility]. Placed in provider's inbox for review. Route to [place] for scanning documented in this encounterUniversity Hospitals Geauga Medical Center02-03-2023 Miscellaneous Notes* Telephone Encounter - Deann Rasheed - 10/23/2022 1:31 PM EST I have sent the referral to physical therapy via the portal with a confirmation # [id number] documented in this encounterUniversity Hospitals Geauga [facility] Center12-29-2022 Miscellaneous Notes* Telephone Encounter - Mellisa Pickett - 09/17/2022 5:08 PM EST Received visit summary from [facility]. Placed in provider's inbox for review. Route to [place] scanning. documented in this encounterUniversity Hospitals Geauga Medical Center12-28-2022 Miscellaneous Notes* Telephone Encounter - Nivia Manning LPN - 09/16/2022 1:49 PM EST Patient informed. Nivia Manning LPN September 16, 2022 1:49 PM * Telephone Encounter - Nivia Manning LPN - 09/16/2022 11:04 AM EST Nurse contacted Esteban Chirinos (p) [phone], spoke to Melinda, who stated medical records sent wasn't what they needed. Nurse is re-sending appropriate records to support necessity for prostheticand is (f) [phone]. This Nurse attempted to contact patient but no answer. Left request for return call and provided our number. Nivia Manning LPN September 16, 2022 11:06 AM documented in this encounterUniversity Hospitals Geauga Medical Center12-28-2022 Miscellaneous Notes* Telephone Encounter - Nivia Manning LPN - 09/16/2022 11:10 AM EST Please see Encounter 09/16/2022 11:07AM. Nivia Manning LPN September 16, 2022 11:13 AM documented in this encounterUniversity Hospitals Geauga Medical Center12-21-2022 Miscellaneous Notes* Telephone Encounter - Sandra Christopher RN - 09/09/2022 10:00 AM EST Images from the original note were not included. Cancelled order for 09/09/[address] Moran. SACHI Bruce MD You 16 hours ago (5:05 PM) Cancel test thanks DAC * Telephone Encounter - Sandra Christopher RN - 09/08/2022 4:21 PM EST Patient had stress nuclear test completed in April and was rescheduled for the same test tomorrow.Instructed cardiac function to cancel tomorrow's testing since 04/24/22 test results indicate no inducible ischemia. Sandra M Ashwin, RN documented in this encounterUniversity Hospitals Geauga Medical Center12-21-2022 History of Present illness Narrative* Larry Jones Principal Java Developer - 09/09/2022 7:30 AM EST Spoke with Elizabeth from [facility]. Patient scheduled for Lexiscan nuclear stress test 09/09/2022. Patient had Lexiscan stress test in April during an inpatient stay. Office to confirm with Dr. Moran but not necessary to repeat this study since previous one in April of 2022. Message left with patient confirming test being canceled. documented in this encounterUniversity Hospitals Geauga Medical Center12-05-2022 Miscellaneous Notes* [facility] - RT Javan(Sherri) - 08/24/2022 10:15 AM EST Radiology Service Progress Note PATIENT NAME: Shilo Hathaway DATE OF SERVICE: August 24, 2022 TIME: 10:14 AM PATIENT IDENTITY VERIFICATION COMPLETED USING TWO (2) IDENTIFIERS: Name and Date of confirmedby patient verbally. FALL SCREENING: Has the patient had 2 falls in the last year or 1 fall with injury or currently using an Ambulatory Assistive Device (Walker, Cane, Wheelchair, Crutches, etc.)? Yes, Patient High Riskfor Falls What interventions were put in place to prevent falls during this visit? Offered Assistance with Transfers/Clothing and Increased Observations by Caregivers PATIENT GENDER DATA: Male PATIENT RELEVANT IMPLANT DATA REVIEWED: Not Applicable RADIOLOGY DEPARTMENT: Ultrasound PERIPHERAL IV DATA: Not applicable SIGNED BY: RT Javan(R) August 24, 2022 10:14 AM documented in this encounterUniversity Hospitals Geauga Medical Center11-17-2022 History of Present illness Narrative* Paulina Severino MD - 08/06/2022 11:20 AM EST CHIEF COMPLAINT Patient presents with: F/U 3 Month HISTORY OF PRESENT ILLNESS Shilo Hathaway is a 71 year old male who presents here today for follow up management of multiple medical issues. I last saw this patient on 07/10/22. Diabetes Mellitus He has a continuous glucose monitor now. He's on mealtime insulin and has variable sugars. No long acting insulin due to cost. He says that his sugars have been going up and down. Patient has highs in the mornings Pain Post op pain after amputation Patient is off of the pain pills He has to convince himself that he doesn't need them Patient continues to take Gabapentin and Tylenol Health Maintenance Due for one time hepatitis C screening. Due for TDAP. Due for routine colon cancer screening. Due for advance directive discussion. Due for depression screening. Due for dilated retinal exam. Due for routine labs. Labs reviewed. Past medical history, appointments, medications, allergies reviewed. REVIEW OF SYSTEMS Pertinent positives/ negatives: General: Feels well, no fever, no chills. HEENT: No sinus congestion, earache, sore throat. Cardiac: No chest pain, palpitations Resp: No cough, wheeze, shortness of breath GI: No reflux symptoms, food intolerance, bowel changes. : No urinary frequency, dysuria. MS: No pain or joint complaints. 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 Carotid artery occlusion Carotid artery stenosis Cerebrovascular accident (CVA) ([facility]) Coronary arteriosclerosis [place] 1998 Depressive disorder Disc disorder of lumbar region Diverticulitis of colon Diverticulitis of colon Essential tremor Gastroesophageal reflux disease Generalized anxiety disorder Hiatal hernia History of myocardial infarction Hyperlipidemia Hypertension Intervertebral disc disorder of lumbar region with myelopathy Irritable bowel syndrome Myocardial infarction (HCC) Old myocardial infarction Peripheral vascular disease (HCC) PERS HX COLONIC POLYPS Preoperative testing 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 Heart: Regular rate and rhythm. Normal S1 and S2. No murmurs, rubs, or gallops. Lungs: Clear to auscultation bilaterally. No respiratory distress. No wheezes, rales, or rhonchi. Abdomen: Soft, non-tender, no distention. Extremities: Feet/ankles without edema, posterior tibial pulses full and symmetrical. Data Reviewed Latest Reference Range & Units 07/03/22 12:42 Cholesterol, Total <200 mg/dL 136 Triglyceride <150 mg/dL 186 (H) Fasting Time hrs 12 HDL Cholesterol >39 mg/dL 38 (L) LDL Cholesterol <100 mg/dL 61 VLDL Cholesterol <30 mg/dL 37 (H) TC:HDL Ratio <5.10 3.58 LDL:HDL Ratio <2.54 1.61 Non HDL Cholesterol <130 mg/dL 98 Creatinine, Ur Random (UCRR) 46.8 - 314.5 mg/dL 91.2 Albumin/Creat Ratio <30 mg/g <13 Albumin, Urine Random mg/L <12.0 (H): Data is abnormally high (L): Data is abnormally low Assessment/Plan (E11.51, Z79.4) Type 2 diabetes mellitus with diabetic peripheral angiopathy without gangrene, withlong-term current use of insulin (HCC) (primary encounter diagnosis) Comment: due for labs Plan: HGB A1C, COMP METABOLIC PANEL (I10) Primary hypertension Comment: due for labs Plan: COMP METABOLIC PANEL (E78.2) Mixed hyperlipidemia Comment: well controlled Plan: continue on current regimen (D64.9) Anemia, unspecified type Comment: due for labs Plan: CBC, IRON + TIBC Requested Prescriptions Signed Prescriptions Disp Refills lisinopril 2.5 mg tablet 30 tablet 11 Sig: Take 1 tablet by mouth once daily. metoprolol succinate ER (TOPROL XL) 25 mg 24 hr tablet 30 tablet 11 Sig: Take 1 tablet by mouth once daily. rivaroxaban (XARELTO) 20 mg tablet 30 tablet 11 Sig: Take 1 tablet by mouth daily with dinner. spironolactone (ALDACTONE) 25 mg tablet 30 tablet 11 Sig: Take 1 tablet by mouth once daily. insulin glargine (BASAGLAR KWIKPEN U-100 INSULIN) 100 unit/mL (3 mL) 5 Each 10 Sig: Inject 10 Units subcutaneously daily at bedtime. Insulin Voca, Disposable, (PEN NEEDLE) 32 gauge x 5/32 100 Each 3 Sig: Inject 1 Each subcutaneously q 24 HR. Give with each insulin administration. RTO: 6 months Scribe Attestation: By signing my name below, I, Abbey Ozuna, attest that this documentation has been prepared under the direction and in the presence of Manpreet Severino M.D. Electronically Signed: Neftali Saha. August 06, 2022 8:06 AM Provider Attestation: IPaulina MD, personally performed the services described in this documentation. All medical record entries made by the scribe were at my direction and in my presence. I have reviewed the chart and discharge instructions (if applicable) and agree that the record reflects my personal performance and is accurate and complete. Electronically Signed: Paulina Severino MD August 06, 2022 5:11PM documented in this [facility]11-14-2022 Miscellaneous Notes* Telephone Encounter - Minoo Boone LPN - 08/03/2022 10:14 AM EST [facility] Placed in provider's inbox for review. Route to [place] for faxing documented in this [facility]11-02-2022 Miscellaneous Notes* Telephone Encounter - Mellisa Pickett - 07/22/2022 3:45 PM EDT [facility]. Placed in provider's inbox for review. Route to [place] fax documented in this [facility]11-01-2022 Miscellaneous Notes* Telephone Encounter - Tracy Lynn Ma - 07/21/2022 1:40 PM EDT Mailed glucose logs to patient. CLOSED documented in this [facility]10-21-2022 History of Present illness Narrative* Paulina Severino MD - 07/10/2022 10:40 AM EDT CHIEF COMPLAINT Patient presents with: Follow Up: [facility] HISTORY OF PRESENT ILLNESS Shilo Hathaway is a 71 year old male who presents here today for follow up management of multiple medical issues. I last saw this patient on 03/27/22. Back Pain Patient says that his leg has been healing well. His pain is also in his back Patient had an MRI of his back The numbness in his leg continues He has been taking pain pills when he is active Health Maintenance Due for Pneumovax. Due for one time hepatitis C screening. Due for TDAP. Due for routine colon cancer screening. Due for Shingrix series Due for advance directive discussion. Due for depression screening. Due for dilated retinal exam. Due for COVID booster Due for routine labs. Due for influenza Labs reviewed. Past medical history, appointments, medications, allergies reviewed. REVIEW OF SYSTEMS Pertinent positives/ negatives: General: Feels well, no fever, no chills. HEENT: No sinus congestion, earache, sore throat. Cardiac: No chest pain, palpitations Resp: No cough, wheeze, shortness of breath GI: No reflux symptoms, food intolerance, bowel changes. : No urinary frequency, dysuria. MS: +R leg numb +back pain L phantom pain at times. 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 Carotid artery occlusion Carotid artery stenosis Cerebrovascular accident (CVA) (HCC) Coronary arteriosclerosis [place] 1998 Depressive disorder Disc disorder of lumbar region Diverticulitis of colon Diverticulitis of colon Essential tremor Gastroesophageal reflux disease Generalized anxiety disorder Hiatal hernia History of myocardial infarction Hyperlipidemia Hypertension Intervertebral disc disorder of lumbar region with myelopathy Irritable bowel syndrome Myocardial infarction (HCC) Old myocardial infarction Peripheral vascular disease (HCC) PERS HX COLONIC POLYPS Preoperative testing 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 Heart: Regular rate and rhythm. Normal S1 and S2. No murmurs, rubs, or gallops. Lungs: Clear to auscultation bilaterally. No respiratory distress. No wheezes, rales, or rhonchi. Abdomen: Soft, non-tender, no distention. Extremities: L AKA, incision healed well. Skin intact. Normal pulse R foot. . Data Reviewed Latest Reference Range & Units 05/26/22 00:00 07/03/22 12:42 Sodium 136 - 145 MEQ/L 136 (E) Potassium 3.5 - 5.1 MEQ/L 4.7 (E) Chloride 98 - 107 MEQ/L 103 (E) Creatinine 0.6 - 1.3 MG/DL 0.69 (E) Glucose 74 - 106 MG/DL 159 ! (E) Calcium 8.8 - 10.5 MG/DL 9.1 (E) Anion Gap 10 (E) Cholesterol, Total <200 mg/dL 136 Triglyceride <150 mg/dL 186 (H) Fasting Time hrs 12 HDL Cholesterol >39 mg/dL 38 (L) LDL Cholesterol <100 mg/dL 61 VLDL Cholesterol <30 mg/dL 37 (H) TC:HDL Ratio <5.10 3.58 LDL:HDL Ratio <2.54 1.61 Non HDL Cholesterol <130 mg/dL 98 Creatinine, Ur Random (UCRR) 46.8 - 314.5 mg/dL 91.2 WBC 4.0 - 11.0 K/uL 8.0 (E) RBC 4.5 - 6.0 M/uL 3.54 ! (E) HGB 12 - 16 g/dL 10 ! (E) MCV 80 - 100 fL 90.7 (E) MCH 27 - 34 pG 28.2 (E) MCHC 32 - 36 % 31.2 ! (E) MPV 7.3 - 11.1 % 10.7 (E) RDW-CV 11.7 - 15.0 % 13.7 (E) RDW-SD 35.1 - 43.9 46.1 ! (E) HCT 33 - 42 % 32.1 ! (E) Platelet 150 - 400 k/uL 282 (E) Albumin/Creat Ratio <30 mg/g <13 Urea Nitrogen 6 - 20 mg/dL 14 (E) Albumin, Urine Random mg/L <12.0 BICARBONATE 23.0 (E) GFR mL/MIN 120 (E) GFR AFR AMER mL/MIN 145 (E) !: Data is abnormal (H): Data is abnormally high (L): Data is abnormally low (E): External lab result Assessment/Plan (E11.51, Z79.4) Type 2 diabetes mellitus with diabetic peripheral angiopathy without gangrene, withlong-term current use of insulin (HCC) (Z89.612) S/P AKA (above knee amputation) unilateral, left (HCC) (E11.40) Painful diabetic neuropathy (HCC) Comment: oingoing pain related to physical activity, it is lessening. Plan: discussion on need to get away from ongoing use of the oxycodone, highly addictive. Next fillwill try hydrocodone/acet. (Z23) Encounter for immunization (primary encounter diagnosis) Comment: Due for COVID booster. Due for influenza Due for Pneumovax. Plan: [employer] COVID-19 BIVALENT BOOSTER VACCINE, AGE 12+ YR, INFLUENZA SEASONAL QUADRIVALENT HIGH DOSE AGE 65+, CANCELED: PNEUMOCOCCAL VACCINE (PREVNAR 20) Requested Prescriptions No prescriptions requested or ordered in this encounter RTO: 3 months Scribe Attestation: By signing my name below, I, Abbey Ozuna, attest that this documentation has been prepared under the direction and in the presence of Manpreet Severino M.D. Electronically Signed: Neftali Saha. July 10, 2022 8:14 AM Provider Attestation: I, Paulina Severino MD, personally performed the services described in this documentation. All medical record entries made by the scribe were at my direction and in my presence. I have reviewed the chart and discharge instructions (if applicable) and agree that the record reflects my personal performance and is accurate and complete. Electronically Signed: Paulina Severino MD July 10, 2022 3:02 PM documented in this encounterUniversity Hospitals Geauga Medical Center10-20-2022 Miscellaneous Notes* Telephone Encounter - Mellisa Pickett - 07/09/2022 10:57 AM EDT Orders faxed * Telephone Encounter - Mellisa Pickett - 07/09/2022 8:41 AM EDT Received orders to d/c home health from [facility]. Placed in provider's inbox for review. Route to GA fax documented in this encounterUniversity Hospitals Geauga Medical Center10-11-2022 History of Present illness Narrative* Elizabeth Georges RN - 06/30/2022 10:15 AM EDT ACM DRAKE RN Action/FYI: Patient identified by name and date of . Patient Attributed To: [facility] Payer: [facility] Reason for review or outreach: Medication Adherence Medication Adherence Review Details: Hypertension Summary / Findings: Ramipril in need of refill. Chart reviewed, medication discontinued at hospital stay Action Taken: Data submitted to Payer Contact made with patient: No, Chart review only. Signature: Elizabeth Georges RN documented in this [facility]10-05-2022 Miscellaneous Notes* Telephone Encounter - Jessica Stanley Ma - 06/24/2022 12:16 PM EDT Completed Request were sent with confirmation. (f) [phone] Forms placed in [place]'s file. * Telephone Encounter - Jessica Satnley Ma - 06/24/2022 12:15 PM EDT Received Pharmacy Orders from [facility] for provider to review and sign. Forms placed in providers box. Once completed please send to : (f): Please route to GA for completion. documented in this [facility]10-04-2022 Miscellaneous Notes* Telephone Encounter - Jessica Stanley Ma - 06/23/2022 7:04 PM EDT Completed Request were sent with confirmation. (f) [phone] ([facility]) Forms placed in Alexandr's file. * Telephone Encounter - Pat Terrell MD - 06/23/2022 6:47 PM EDT Form was signed and dated and placed in outbox Please fax back * Telephone Encounter - Jessica Stanley Ma - 06/23/2022 5:40 PM EDT Received Orders ( Dr. Severino- patient) Forms placed in covering providers in-box for completion. Jessica Stanley (Alexandr) documented in this encounterUniversity Hospitals Geauga Medical Center10-04-2022 Miscellaneous Notes* Telephone Encounter - Pat Terrell MD - 06/23/2022 6:48 PM EDT See other message * Telephone Encounter - Mellisa Pickett - 06/22/2022 1:47 PM EDT Received orders to sign from previous verbal orders from [facility]. Placed in provider's inbox for review. Route to GA fax documented in this encounterUniversity Hospitals Geauga Medical Center09-30-2022 Miscellaneous Notes* Telephone Encounter - Silvina Ha PA-C - 06/19/2022 11:53 AM EDT PDMP website checked and validated. All prescriptions have been APPROPRIATELY filled. No suspiciousactivity was identified. 06/19/2022 by Silvina Ha PA-C * Telephone Encounter - Terri Mulligan - 06/19/2022 10:15 AM EDT Pharmacy verified in Epic Patient has been identified by name and date of : Yes Patient aware RX will be sent to pharmacy. No need to notify patient. Patient phones for refill(s): Requested Prescriptions Pending Prescriptions Disp Refills oxyCODONE IR (ROXICODONE) 5 mg immediate release tablet 21 tablet 0 Sig: Take 1 tablet by mouth every 8 hours as needed for pain for up to 7 days. Date of last office visit : 03/27/2022 Date of next office visit : 07/10/2022 Last 2 Encounter Wt Readings: Date: Wt: 06/17/2022 0 kg () 04/23/2022 69.7 kg (153 lb 10.6 oz) Not applicable Please advise. Terri Mulligan documented in this encounterUniversity Hospitals Geauga Medical Center09-29-2022 History of Present illness Narrative* Elizabeth Ball APRN.PARK ACTIVITIES COORDINATOR - 06/18/2022 9:48 AM EDT Shilo Hathaway 71 year old male S/P Left axillary to left profunda to right profunda bypass and redo groin incisions; Left above knee amputation PROCEDURE: L ax-bifem bypass by Dr. Villalpando; L AKA by Dr. Murray DATE: 05/01/22; 05/05/22 SUBJECTIVE: Shilo Hathaway returns to the office today for post-op evaluation following his recent surgeries. He is home from rehab now and is doing well. Admits to occasional phantom sensations/pain, and has pain medication per his PCP. Working hard on becoming independent with his amputation and would like to get started with getting a prosthetic as soon as possible. Also voices concern/caution with regard tohis RLE, as he had a repeat bypass to keep circulation in his RLE and does not want to wind up withan amputation on the right side as well. Admits it is difficult to discern his vascular pain compared to his chronic back issues (currently has a 'slipped disc'), as he thought his LLE pain was related to that, not his circulation. Wonders if he got his circulation checked earlier, would he have been able to keep his leg, so he would like to be more proactive with surveillance of his bypass and his RLE. EXAM: Neurological Exam: Normal; Awake, alert, oriented, pleasant, and appropriate; Strength and sensation grossly intact Left Clavicular Incision: Clean, dry, well approximated, and well healed Left Groin Incision: Clean, dry, well approximated, and well healed Right Groin Incision: Clean, dry, well approximated, and well healed Left Stump Incision: Clean, dry, well approximated, and well healed with joe intact; No edema, erythema, ecchymosis, or drainage noted; Joe removed with minimal bleeding and no dehiscence IMPRESSION: Stable post op; Shilo will see if he has [employer] info - will place new referral if needed; OK to proceed with measurements/fitting/etc for prosthetic leg!; Continue current stump care until seenby Hanna and given any new instructions; Continue good foot care and skin surveillance in RLE PLAN: Shilo will follow-up in 6 months with repeat PVR. He is encouraged to call with any questions or concerns in the meantime. The patient is currently taking a statin: Yes The patient is currently taking aspirin: Yes Elizabeth Ball APRN.NATHALY documented in this encounterUniversity Hospitals Geauga Medical Center09-28-2022 Miscellaneous Notes* Telephone Encounter - Mellisa Pickett - 06/17/2022 11:26 AM EDT Received orders for insulin lispro 5 units with each meal from [facility]. Placed in provider's inboxfor review. Route to GA fax documented in this encounterUniversity Hospitals Geauga Medical Center09-26-2022 Miscellaneous Notes* Telephone Encounter - Mellisa Pickett - 06/15/2022 8:52 AM EDT Received PT/OT orders from [facility]. Placed in provider's inbox for review. Route to GA fax documented in this encounterUniversity Hospitals Geauga Medical Center09-23-2022 Miscellaneous Notes* Telephone Encounter - Thu Vines RN - 06/12/2022 11:10 AM EDT Celestina from [facility] left VM on RN line requesting latest office notes or face to face be faxed to [phone] Reason for Disposition [1] Follow-up call to recent contact AND [2] information only call, no triage required Protocols used: Information Only Call - No [id number] documented in this encounterUniversity Hospitals Geauga Medical Center09-21-2022 Miscellaneous Notes* Telephone Encounter - Mellisa Pickett - 06/10/2022 9:34 AM EDT Called [facility] and relayed information. * Telephone Encounter - Lyubov Prado APRN.CNP - 06/10/2022 8:16 AM EDT Yes, Dr. Severino will follow this patient and sign home care orders. Lyubov Prado APRN.CNP * Telephone Encounter - Sandra Hewitt Pss - 06/09/2022 10:27 AM EDT Carmelita, from [facility], called to see if Dr. Severino will sign home care orders for nursing, PT and OT services. Please advise at [phone]. documented in this encounterUniversity Hospitals Geauga Medical Center09-20-2022 Miscellaneous Notes* Telephone Encounter - Jessica Duff - 06/09/2022 10:36 AM EDT Called patient and made appointment. * Telephone Encounter - Paulina Severino MD - 06/08/2022 5:07 PM EDT The following approved medication requests have been transmitted electronically. Requested Prescriptions Signed Prescriptions Disp Refills oxyCODONE IR (ROXICODONE) 5 mg immediate release tablet 21 tablet 0 Sig: Take 1 tablet by mouth every 8 hours as needed for pain for up to 7 days. Pharmacy Information Pharmacy Address Telephone [facility] [id number] [place], [place] [id number] Will need to get away from that strong of a pain medl. Appt in office soon. Paulina Severino MD documented in this encounterUniversity Hospitals Geauga Medical Center09-15-2022 History of Present illness Narrative* Bee Sarmiento - 06/04/2022 9:39 AM EDT Incidental Lung Nodule Enrollment Call attempt: 2nd Attempt Call status: Complete Enrolled in Lung Nodule program: No Declined reason: Other Lung Nodule Program Location: [place] Two letter attempts. No response/appointment documented in this encounterUniversity Hospitals Geauga Medical Center09-13-2022 Miscellaneous Notes* Telephone Encounter - Minoo Boone LPN - 06/02/2022 3:40 PM EDT Received 06/02/2022 from [facility]. Placed in provider's inbox for review. Route to GA for scanning. documented in this encounterUniversity Hospitals Geauga Medical Center09-08-2022 Miscellaneous Notes* Telephone Encounter - Mellisa Pickett - 05/28/2022 7:53 AM EDT Received labs from [facility]. Placed in provider's inbox for review. Entered into pt chart. Route to MA scanning. documented in this encounterUniversity Hospitals Geauga Medical Center09-06-2022 History of Present illness Narrative* Bee Sarmiento - 05/26/2022 8:46 AM EDT Incidental Lung Nodule Enrollment Call attempt: 2nd Attempt Call status: Complete Enrolled in Lung Nodule program: Referred Lung Nodule Program Location: [place] Two letter attempts documented in this encounterUniversity Hospitals Geauga Medical Center09-02-2022 Miscellaneous Notes* Telephone Encounter - Troy Becerril - 05/22/2022 5:21 PM EDT Called pt to schedule hospital follow-up - no answer, left vm w/ appt info Also sent appt reminder ltr to address provided in pt's chart Thursday, July 21, 2022 @ 10AM w/ NEEL Olmedo at [facility] Troy Becerril May 22, 2022 5:21 PM * Telephone Encounter - Selma Olmedo APRN.CNP - 05/22/2022 1:04 PM EDT Please make a hospital follow up appointment to be seen in 4-[address] Moran or [employer] PRINT OPERATOR Thank you Selma Olmedo APRN.CNP documented in this encounterUniversity Hospitals Geauga Medical Center09-01-2022 Miscellaneous Notes* Telephone Encounter - Mellisa Pickett - 05/21/2022 10:48 AM EDT Called [facility] and spoke with 100 unit charge nurse Faviola. Relayed information. * Telephone Encounter - Paulina Severino MD - 05/21/2022 9:56 AM EDT [facility] been [facility]. Received call for orders after hours. Please call [facility] and let the nurse know the oxycodone Rx has been e-scripted to [facility]. The following approved medication requests have been transmitted electronically. Requested Prescriptions Signed Prescriptions Disp Refills oxyCODONE IR (ROXICODONE) 5 mg immediate release tablet 30 tablet 0 Sig: Take 1 tablet by mouth every 8 hours as needed for pain for up to 10 days. Authorizing Provider: PAULINA SEVERINO Pharmacy Information Pharmacy Address Telephone [facility] [id number] [place] [address] Paulina Severino MD documented in this encounterUniversity Hospitals Geauga Medical Center08-31-2022 Miscellaneous Notes* Telephone Encounter - Ashley Rocha PA-C - 05/20/2022 3:11 PM EDT Please set up follow up appt s/p Konrad GLORIA in 4 weeks with Rakan Ball CNP documented in this encounterUniversity Hospitals Geauga Medical Center08-30-2022 History of Past illness Narrative* Problem Noted Date Resolved Date GA (acute kidney injury) 05/19/20222021 Epistaxis 05/19/2022 05/19/2022 Acute respiratory failure with hypoxia 2 05/19/2022 Double vision 07/26/2017 09/30/2018 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 Headache(784.0) 09/08/2015 Abdominal pain, left lower quadrant 09/08/2015 Pain in limb 09/08/2015 SOB (shortness of breath) 2020 documented as of this encounter (statuses as of 05/20/2022) [facility]08-30-2022 History of Past illness Narrative* Problem Noted Date Resolved Date GA (acute kidney injury) 05/19/20222021 Epistaxis 05/19/2022 05/19/2022 Acute respiratory failure with hypoxia 2 05/19/2022 Double vision 07/26/2017 09/30/2018 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 Headache(784.0) 09/08/2015 Abdominal pain, left lower quadrant 09/08/2015 Pain in limb 09/08/2015 SOB (shortness of breath) 2020 documented as of this encounter (statuses as of 05/21/2022) [address]30-[address]22 History of Past illness Narrative* Problem Noted Date Resolved Date GA (acute kidney injury) 05/19/20222021 Epistaxis 05/19/2022 05/19/2022 Acute respiratory failure with hypoxia 2 05/19/2022 Double vision 07/26/2017 09/30/2018 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 Headache(784.0) 09/08/2015 Abdominal pain, left lower quadrant 09/08/2015 Pain in limb 09/08/2015 SOB (shortness of breath) 2020 documented as of this encounter (statuses as of 05/22/2022) [address]22 History of Past illness Narrative* Problem Noted Date Resolved Date GA (acute kidney injury) 05/19/20222021 Epistaxis 05/19/2022 05/19/2022 Acute respiratory failure with hypoxia 2 05/19/2022 Double vision 07/26/2017 09/30/2018 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 Headache(784.0) 09/08/2015 Abdominal pain, left lower quadrant 09/08/2015 Pain in limb 09/08/2015 SOB (shortness of breath) 2020 documented as of this encounter (statuses as of 05/26/2022) [address]22 History of Past illness Narrative* Problem Noted Date Resolved Date GA (acute kidney injury) 05/19/20222021 Epistaxis 05/19/2022 05/19/2022 Acute respiratory failure with hypoxia 2 05/19/2022 Double vision 07/26/2017 09/30/2018 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 Headache(784.0) 09/08/2015 Abdominal pain, left lower quadrant 09/08/2015 Pain in limb 09/08/2015 SOB (shortness of breath) 2020 documented as of this encounter (statuses as of 05/28/2022) [address]22 History of Past illness Narrative* Problem Noted Date Resolved Date GA (acute kidney injury) 05/19/20222021 Epistaxis 05/19/2022 05/19/2022 Acute respiratory failure with hypoxia 2 05/19/2022 Double vision 07/26/2017 09/30/2018 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 Headache(784.0) 09/08/2015 Abdominal pain, left lower quadrant 09/08/2015 Pain in limb 09/08/2015 SOB (shortness of breath) 2020 documented as of this encounter (statuses as of 06/02/2022) [address]22 History of Past illness Narrative* Problem Noted Date Resolved Date GA (acute kidney injury) 05/19/20222021 Epistaxis 05/19/2022 05/19/2022 Acute respiratory failure with hypoxia 2 05/19/2022 Double vision 07/26/2017 09/30/2018 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 Headache(784.0) 09/08/2015 Abdominal pain, left lower quadrant 09/08/2015 Pain in limb 09/08/2015 SOB (shortness of breath) 2020 documented as of this encounter (statuses as of 06/04/2022) [facility] of Past illness Narrative* Problem Noted Date Resolved Date GA (acute kidney injury) 05/19/20222021 Epistaxis 05/19/2022 05/19/2022 Acute respiratory failure with hypoxia 2 05/19/2022 Double vision 07/26/2017 09/30/2018 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 Headache(784.0) 09/08/2015 Abdominal pain, left lower quadrant 09/08/2015 Pain in limb 09/08/2015 SOB (shortness of breath) 2020 documented as of this encounter (statuses as of 06/09/2022) [address]-[address]22 History of Past illness Narrative* Problem Noted Date Resolved Date GA (acute kidney injury) 05/19/20222021 Epistaxis 05/19/2022 05/19/2022 Acute respiratory failure with hypoxia 2 05/19/2022 Double vision 07/26/2017 09/30/2018 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 Headache(784.0) 09/08/2015 Abdominal pain, left lower quadrant 09/08/2015 Pain in limb 09/08/2015 SOB (shortness of breath) 2020 documented as of this encounter (statuses as of 06/10/2022) [facility] of Past illness Narrative* Problem Noted Date Resolved Date GA (acute kidney injury) 05/19/20222021 Epistaxis 05/19/2022 05/19/2022 Acute respiratory failure with hypoxia 2 05/19/2022 Double vision 07/26/2017 09/30/2018 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 Headache(784.0) 09/08/2015 Abdominal pain, left lower quadrant 09/08/2015 Pain in limb 09/08/2015 SOB (shortness of breath) 2020 documented as of this encounter (statuses as of 06/12/2022) [facility] of Past illness Narrative* Problem Noted Date Resolved Date GA (acute kidney injury) 05/19/20222021 Epistaxis 05/19/2022 05/19/2022 Acute respiratory failure with hypoxia 2 05/19/2022 Double vision 07/26/2017 09/30/2018 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 Headache(784.0) 09/08/2015 Abdominal pain, left lower quadrant 09/08/2015 Pain in limb 09/08/2015 SOB (shortness of breath) 2020 documented as of this encounter (statuses as of 06/15/2022) [address]22 History of Past illness Narrative* Problem Noted Date Resolved Date GA (acute kidney injury) 05/19/20222021 Epistaxis 05/19/2022 05/19/2022 Acute respiratory failure with hypoxia 2 05/19/2022 Double vision 07/26/2017 09/30/2018 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 Headache(784.0) 09/08/2015 Abdominal pain, left lower quadrant 09/08/2015 Pain in limb 09/08/2015 SOB (shortness of breath) 2020 documented as of this encounter (statuses as of 06/17/2022) [facility] of [facility] illness Narrative* Problem Noted Date Resolved Date GA (acute kidney injury) 05/19/20222021 Epistaxis 05/19/2022 05/19/2022 Acute respiratory failure with hypoxia 2 05/19/2022 Double vision 07/26/2017 09/30/2018 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 Headache(784.0) 09/08/2015 Abdominal pain, left lower quadrant 09/08/2015 Pain in limb 09/08/2015 SOB (shortness of breath) 2020 documented as of this encounter (statuses as of 06/18/2022) [facility] illness Narrative* Problem Noted Date Resolved Date GA (acute kidney injury) 05/19/20222021 Epistaxis 05/19/2022 05/19/2022 Acute respiratory failure with hypoxia 2 05/19/2022 Double vision 07/26/2017 09/30/2018 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 Headache(784.0) 09/08/2015 Abdominal pain, left lower quadrant 09/08/2015 Pain in limb 09/08/2015 SOB (shortness of breath) 2020 documented as of this encounter (statuses as of 06/19/2022) [facility] of Past illness Narrative* Problem Noted Date Resolved Date GA (acute kidney injury) 05/19/20222021 Epistaxis 05/19/2022 05/19/2022 Acute respiratory failure with hypoxia 2 05/19/2022 Double vision 07/26/2017 09/30/2018 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 Headache(784.0) 09/08/2015 Abdominal pain, left lower quadrant 09/08/2015 Pain in limb 09/08/2015 SOB (shortness of breath) 2020 documented as of this encounter (statuses as of 06/23/2022) [facility]08-30-2022 History of Past illness Narrative* Problem Noted Date Resolved Date GA (acute kidney injury) 05/19/20222021 Epistaxis 05/19/2022 05/19/2022 Acute respiratory failure with hypoxia 2 05/19/2022 Double vision 07/26/2017 09/30/2018 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 Headache(784.0) 09/08/2015 Abdominal pain, left lower quadrant 09/08/2015 Pain in limb 09/08/2015 SOB (shortness of breath) 2020 documented as of this encounter (statuses as of 06/24/2022) [facility]20[facility] History of Past illness Narrative* Problem Noted Date Resolved Date GA (acute kidney injury) 05/19/20222021 Epistaxis 05/19/2022 05/19/2022 Acute respiratory failure with hypoxia 2 05/19/2022 Double vision 07/26/2017 09/30/2018 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 Headache(784.0) 09/08/2015 Abdominal pain, left lower quadrant 09/08/2015 Pain in limb 09/08/2015 SOB (shortness of breath) 2020 documented as of this encounter (statuses as of 06/29/2022) [address]30-2022 History of Past illness Narrative* Problem Noted Date Resolved Date GA (acute kidney injury) 05/19/20222021 Epistaxis 05/19/2022 05/19/2022 Acute respiratory failure with hypoxia 2 05/19/2022 Double vision 07/26/2017 09/30/2018 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 Headache(784.0) 09/08/2015 Abdominal pain, left lower quadrant 09/08/2015 Pain in limb 09/08/2015 SOB (shortness of breath) 2020 documented as of this encounter (statuses as of 06/30/2022) [address]30-2022 History of Past illness Narrative* Problem Noted Date Resolved Date GA (acute kidney injury) 05/19/20222021 Epistaxis 05/19/2022 05/19/2022 Acute respiratory failure with hypoxia 2 05/19/2022 Double vision 07/26/2017 09/30/2018 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 Headache(784.0) 09/08/2015 Abdominal pain, left lower quadrant 09/08/2015 Pain in limb 09/08/2015 SOB (shortness of breath) 2020 documented as of this encounter (statuses as of 07/09/2022) [address]30-2022 History of Past illness Narrative* Problem Noted Date Resolved Date GA (acute kidney injury) 05/19/20222021 Epistaxis 05/19/2022 05/19/2022 Acute respiratory failure with hypoxia 2 05/19/2022 Double vision 07/26/2017 09/30/2018 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 Headache(784.0) 09/08/2015 Abdominal pain, left lower quadrant 09/08/2015 Pain in limb 09/08/2015 SOB (shortness of breath) 2020 documented as of this encounter (statuses as of 07/10/2022) [address]30-2022 History of Past illness Narrative* Problem Noted Date Resolved Date GA (acute kidney injury) 05/19/20222021 Epistaxis 05/19/2022 05/19/2022 Acute respiratory failure with hypoxia 2 05/19/2022 Double vision 07/26/2017 09/30/2018 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 Headache(784.0) 09/08/2015 Abdominal pain, left lower quadrant 09/08/2015 Pain in limb 09/08/2015 SOB (shortness of breath) 2020 documented as of this encounter (statuses as of 07/21/2022) [address]30-2022 History of Past illness Narrative* Problem Noted Date Resolved Date GA (acute kidney injury) 05/19/20222021 Epistaxis 05/19/2022 05/19/2022 Acute respiratory failure with hypoxia 2 05/19/2022 Double vision 07/26/2017 09/30/2018 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 Headache(784.0) 09/08/2015 Abdominal pain, left lower quadrant 09/08/2015 Pain in limb 09/08/2015 SOB (shortness of breath) 2020 documented as of this encounter (statuses as of 07/22/2022) [address]30-2022 History of Past illness Narrative* Problem Noted Date Resolved Date GA (acute kidney injury) 05/19/20222021 Epistaxis 05/19/2022 05/19/2022 Acute respiratory failure with hypoxia 2 05/19/2022 Double vision 07/26/2017 09/30/2018 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 Headache(784.0) 09/08/2015 Abdominal pain, left lower quadrant 09/08/2015 Pain in limb 09/08/2015 SOB (shortness of breath) 2020 documented as of this encounter (statuses as of 07/24/2022) [address]30-2022 History of Past illness Narrative* Problem Noted Date Resolved Date GA (acute kidney injury) 05/19/20222021 Epistaxis 05/19/2022 05/19/2022 Acute respiratory failure with hypoxia 2 05/19/2022 Double vision 07/26/2017 09/30/2018 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 Headache(784.0) 09/08/2015 Abdominal pain, left lower quadrant 09/08/2015 Pain in limb 09/08/2015 SOB (shortness of breath) 07/16/ 2021 documented as of this encounter (statuses as of 08/03/2022) [address]30-2022 History of Past illness Narrative* Problem Noted Date Resolved Date GA (acute kidney injury) 05/19/20222021 Epistaxis 05/19/2022 05/19/2022 Acute respiratory failure with hypoxia 2 05/19/2022 Double vision 07/26/2017 09/30/2018 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 Headache(784.0) 09/08/2015 Abdominal pain, left lower quadrant 09/08/2015 Pain in limb 09/08/2015 SOB (shortness of breath) 2020 documented as of this encounter (statuses as of 08/06/2022) [address]30-2022 History of Past illness Narrative* Problem Noted Date Resolved Date GA (acute kidney injury) 05/19/20222021 Epistaxis 05/19/2022 05/19/2022 Acute respiratory failure with hypoxia 2 05/19/2022 Double vision 07/26/2017 09/30/2018 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 Headache(784.0) 09/08/2015 Abdominal pain, left lower quadrant 09/08/2015 Pain in limb 09/08/2015 SOB (shortness of breath) 2020 documented as of this encounter (statuses as of 08/25/2022) [facility]08[facility]30[facility]2022 History of Past illness Narrative* Problem Noted Date Resolved Date GA (acute kidney injury) 05/19/20222021 Epistaxis 05/19/2022 05/19/2022 Acute respiratory failure with hypoxia 2 05/19/2022 Double vision 07/26/2017 09/30/2018 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 Headache(784.0) 09/08/2015 Abdominal pain, left lower quadrant 09/08/2015 Pain in limb 09/08/2015 SOB (shortness of breath) 2020 documented as of this encounter (statuses as of 09/09/2022) [address]30-2022 History of Past illness Narrative* Problem Noted Date Resolved Date GA (acute kidney injury) 05/19/20222021 Epistaxis 05/19/2022 05/19/2022 Acute respiratory failure with hypoxia 2 05/19/2022 Double vision 07/26/2017 09/30/2018 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 Headache(784.0) 09/08/2015 Abdominal pain, left lower quadrant 09/08/2015 Pain in limb 09/08/2015 SOB (shortness of breath) 2020 documented as of this encounter (statuses as of 09/14/2022) [facility]08[facility]20[facility] History of Past illness Narrative* Problem Noted Date Resolved Date GA (acute kidney injury) 05/19/20222021 Epistaxis 05/19/2022 05/19/2022 Acute respiratory failure with hypoxia 2 05/19/2022 Double vision 07/26/2017 09/30/2018 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 Headache(784.0) 09/08/2015 Abdominal pain, left lower quadrant 09/08/2015 Pain in limb 09/08/2015 SOB (shortness of breath) 2020 documented as of this encounter (statuses as of 09/22/2022) [facility]08[facility]20[facility] History of Past illness Narrative* Problem Noted Date Resolved Date GA (acute kidney injury) 05/19/20222021 Epistaxis 05/19/2022 05/19/2022 Acute respiratory failure with hypoxia 2 05/19/2022 Double vision 07/26/2017 09/30/2018 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 Headache(784.0) 09/08/2015 Abdominal pain, left lower quadrant 09/08/2015 Pain in limb 09/08/2015 SOB (shortness of breath) 2020 documented as of this encounter (statuses as of 09/23/2022) [facility]08[facility] History of Past illness Narrative* Problem Noted Date Resolved Date GA (acute kidney injury) 05/19/20222021 Epistaxis 05/19/2022 05/19/2022 Acute respiratory failure with hypoxia 2 05/19/2022 Double vision 07/26/2017 09/30/2018 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 Headache(784.0) 09/08/2015 Abdominal pain, left lower quadrant 09/08/2015 Pain in limb 09/08/2015 SOB (shortness of breath) 2020 documented as of this encounter (statuses as of 10/23/2022) [facility]08[facility] History of Past illness Narrative* Problem Noted Date Resolved Date GA (acute kidney injury) 05/19/20222021 Epistaxis 05/19/2022 05/19/2022 Acute respiratory failure with hypoxia 2 05/19/2022 Double vision 07/26/2017 09/30/2018 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 Headache(784.0) 09/08/2015 Abdominal pain, left lower quadrant 09/08/2015 Pain in limb 09/08/2015 SOB (shortness of breath) 2020 documented as of this encounter (statuses as of 10/29/2022) [facility]08[facility] History of Past illness Narrative* Problem Noted Date Resolved Date GA (acute kidney injury) 05/19/20222021 Epistaxis 05/19/2022 05/19/2022 Acute respiratory failure with hypoxia 2 05/19/2022 Double vision 07/26/2017 09/30/2018 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 Headache(784.0) 09/08/2015 Abdominal pain, left lower quadrant 09/08/2015 Pain in limb 09/08/2015 SOB (shortness of breath) 2020 documented as of this encounter (statuses as of 11/04/2022) [facility]08[facility] History of Past illness Narrative* Problem Noted Date Resolved Date GA (acute kidney injury) 05/19/20222021 Epistaxis 05/19/2022 05/19/2022 Acute respiratory failure with hypoxia 2 05/19/2022 Double vision 07/26/2017 09/30/2018 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 Headache(784.0) 09/08/2015 Abdominal pain, left lower quadrant 09/08/2015 Pain in limb 09/08/2015 SOB (shortness of breath) 2020 documented as of this encounter (statuses as of 11/04/2022) [address]30-2022 History of Past illness Narrative* Problem Noted Date Resolved Date GA (acute kidney injury) 05/19/20222021 Epistaxis 05/19/2022 05/19/2022 Acute respiratory failure with hypoxia 2 05/19/2022 Double vision 07/26/2017 09/30/2018 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 Headache(784.0) 09/08/2015 Abdominal pain, left lower quadrant 09/08/2015 Pain in limb 09/08/2015 SOB (shortness of breath) 2020 documented as of this encounter (statuses as of 11/06/2022) [address]30-2022 History of Past illness Narrative* Problem Noted Date Resolved Date GA (acute kidney injury) 05/19/20222021 Epistaxis 05/19/2022 05/19/2022 Acute respiratory failure with hypoxia 2 05/19/2022 Double vision 07/26/2017 09/30/2018 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 Headache(784.0) 09/08/2015 Abdominal pain, left lower quadrant 09/08/2015 Pain in limb 09/08/2015 SOB (shortness of breath) 2020 documented as of this encounter (statuses as of 11/10/2022) [address]30-2022 History of Past illness Narrative* Problem Noted Date Resolved Date GA (acute kidney injury) 05/19/20222021 Epistaxis 05/19/2022 05/19/2022 Acute respiratory failure with hypoxia 2 05/19/2022 Double vision 07/26/2017 09/30/2018 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 Headache(784.0) 09/08/2015 Abdominal pain, left lower quadrant 09/08/2015 Pain in limb 09/08/2015 SOB (shortness of breath) 2020 documented as of this encounter (statuses as of 11/11/2022) [address]30-2022 History of Past illness Narrative* Problem Noted Date Resolved Date GA (acute kidney injury) 05/19/20222021 Epistaxis 05/19/2022 05/19/2022 Acute respiratory failure with hypoxia 2 05/19/2022 Double vision 07/26/2017 09/30/2018 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 Headache(784.0) 09/08/2015 Abdominal pain, left lower quadrant 09/08/2015 Pain in limb 09/08/2015 SOB (shortness of breath) 2020 documented as of this encounter (statuses as of 11/12/2022) [address]30-2022 History of Past illness Narrative* Problem Noted Date Resolved Date GA (acute kidney injury) 05/19/20222021 Epistaxis 05/19/2022 05/19/2022 Acute respiratory failure with hypoxia 2 05/19/2022 Double vision 07/26/2017 09/30/2018 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 Headache(784.0) 09/08/2015 Abdominal pain, left lower quadrant 09/08/2015 Pain in limb 09/08/2015 SOB (shortness of breath) 2020 documented as of this encounter (statuses as of 11/13/2022) [address]30-2022 History of Past illness Narrative* Problem Noted Date Resolved Date GA (acute kidney injury) 05/19/20222021 Epistaxis 05/19/2022 05/19/2022 Acute respiratory failure with hypoxia 2 05/19/2022 Double vision 07/26/2017 09/30/2018 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 Headache(784.0) 09/08/2015 Abdominal pain, left lower quadrant 09/08/2015 Pain in limb 09/08/2015 SOB (shortness of breath) 2020 documented as of this encounter (statuses as of 11/18/2022) [address]30-2022 History of Past illness Narrative* Problem Noted Date Resolved Date GA (acute kidney injury) 05/19/20222021 Epistaxis 05/19/2022 05/19/2022 Acute respiratory failure with hypoxia 2 05/19/2022 Double vision 07/26/2017 09/30/2018 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 Headache(784.0) 09/08/2015 Abdominal pain, left lower quadrant 09/08/2015 Pain in limb 09/08/2015 SOB (shortness of breath) 2020 documented as of this encounter (statuses as of 11/20/2022) [address]30-2022 History of Past illness Narrative* Problem Noted Date Resolved Date GA (acute kidney injury) 05/19/20222021 Epistaxis 05/19/2022 05/19/2022 Acute respiratory failure with hypoxia 2 05/19/2022 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 04/23/2022 11/24/2022 Double vision 07/26/2017 09/30/2018 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 Headache(784.0) 09/08/2015 Abdominal pain, left lower quadrant 09/08/2015 Pain in limb 09/08/2015 SOB (shortness of breath) 2020 documented as of this encounter (statuses as of 11/25/2022) [address]30-2022 History of Past illness Narrative* Problem Noted Date Resolved Date GA (acute kidney injury) 05/19/20222021 Epistaxis 05/19/2022 05/19/2022 Acute respiratory failure with hypoxia 2 05/19/2022 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 04/23/2022 11/24/2022 Double vision 07/26/2017 09/30/2018 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 Headache(784.0) 09/08/2015 Abdominal pain, left lower quadrant 09/08/2015 Pain in limb 09/08/2015 SOB (shortness of breath) 2020 documented as of this encounter (statuses as of 12/01/2022) [facility]08[facility] History of Past illness Narrative* Problem Noted Date Resolved Date GA (acute kidney injury) 05/19/20222021 Epistaxis 05/19/2022 05/19/2022 Acute respiratory failure with hypoxia 2 05/19/2022 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 04/23/2022 11/24/2022 Double vision 07/26/2017 09/30/2018 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 Headache(784.0) 09/08/2015 Abdominal pain, left lower quadrant 09/08/2015 Pain in limb 09/08/2015 SOB (shortness of breath) 2020 documented as of this encounter (statuses as of 12/03/2022) [facility]08[facility] History of Past illness Narrative* Problem Noted Date Resolved Date GA (acute kidney injury) 05/19/20222021 Epistaxis 05/19/2022 05/19/2022 Acute respiratory failure with hypoxia 2 05/19/2022 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 04/23/2022 11/24/2022 Double vision 07/26/2017 09/30/2018 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 Headache(784.0) 09/08/2015 Abdominal pain, left lower quadrant 09/08/2015 Pain in limb 09/08/2015 SOB (shortness of breath) 2020 documented as of this encounter (statuses as of 12/08/2022) [facility] History of Past illness Narrative* Problem Noted Date Resolved Date GA (acute kidney injury) 05/19/20222021 Epistaxis 05/19/2022 05/19/2022 Acute respiratory failure with hypoxia 2 05/19/2022 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 04/23/2022 11/24/2022 Double vision 07/26/2017 09/30/2018 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 Headache(784.0) 09/08/2015 Abdominal pain, left lower quadrant 09/08/2015 Pain in limb 09/08/2015 SOB (shortness of breath) 2020 documented as of this encounter (statuses as of 12/08/2022) [facility] History of Past illness Narrative* Problem Noted Date Resolved Date GA (acute kidney injury) 05/19/20222021 Epistaxis 05/19/2022 05/19/2022 Acute respiratory failure with hypoxia 05/19/2022 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 04/23/2022 11/24/2022 Double vision 07/26/2017 09/30/2018 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 Headache(784.0) 09/08/2015 Abdominal pain, left lower quadrant 09/08/2015 Pain in limb 09/08/2015 SOB (shortness of breath) 2020 documented as of this encounter (statuses as of 12/08/2022) [facility] History of Past illness Narrative* Problem Noted Date Resolved Date GA (acute kidney injury) 05/19/20222021 Epistaxis 05/19/2022 05/19/2022 Acute respiratory failure with hypoxia 2 05/19/2022 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 04/23/2022 11/24/2022 Double vision 07/26/2017 09/30/2018 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 Headache(784.0) 09/08/2015 Abdominal pain, left lower quadrant 09/08/2015 Pain in limb 09/08/2015 SOB (shortness of breath) 2020 documented as of this encounter (statuses as of 12/15/2022) [facility] History of Past illness Narrative* Problem Noted Date Resolved Date GA (acute kidney injury) 05/19/20222021 Epistaxis 05/19/2022 05/19/2022 Acute respiratory failure with hypoxia 05/19/2022 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 04/23/2022 11/24/2022 Double vision 07/26/2017 09/30/2018 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 Headache(784.0) 09/08/2015 Abdominal pain, left lower quadrant 09/08/2015 Pain in limb 09/08/2015 SOB (shortness of breath) 2020 documented as of this encounter (statuses as of 12/16/2022) [facility] History of Past illness Narrative* Problem Noted Date Resolved Date GA (acute kidney injury) 05/19/20222021 Epistaxis 05/19/2022 05/19/2022 Acute respiratory failure with hypoxia 2 05/19/2022 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 04/23/2022 11/24/2022 Double vision 07/26/2017 09/30/2018 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 Headache(784.0) 09/08/2015 Abdominal pain, left lower quadrant 09/08/2015 Pain in limb 09/08/2015 SOB (shortness of breath) 2020 documented as of this encounter (statuses as of 12/30/2022) [facility] History of Past illness Narrative* Problem Noted Date Resolved Date GA (acute kidney injury) 05/19/20222021 Epistaxis 05/19/2022 05/19/2022 Acute respiratory failure with hypoxia 2 05/19/2022 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 04/23/2022 11/24/2022 Double vision 07/26/2017 09/30/2018 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 Headache(784.0) 09/08/2015 Abdominal pain, left lower quadrant 09/08/2015 Pain in limb 09/08/2015 SOB (shortness of breath) 2020 documented as of this encounter (statuses as of 12/31/2022) [facility] History of Past illness Narrative* Problem Noted Date Resolved Date GA (acute kidney injury) 05/19/20222021 Epistaxis 05/19/2022 05/19/2022 Acute respiratory failure with hypoxia 05/19/2022 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 04/23/2022 11/24/2022 Double vision 07/26/2017 09/30/2018 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 Headache(784.0) 09/08/2015 Abdominal pain, left lower quadrant 09/08/2015 Pain in limb 09/08/2015 SOB (shortness of breath) 2020 documented as of this encounter (statuses as of 01/01/2023) [facility] History of Past illness Narrative* Problem Noted Date Resolved Date GA (acute kidney injury) 05/19/20222021 Epistaxis 05/19/2022 05/19/2022 Acute respiratory failure with hypoxia 2 05/19/2022 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 04/23/2022 11/24/2022 Double vision 07/26/2017 09/30/2018 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 Headache(784.0) 09/08/2015 Abdominal pain, left lower quadrant 09/08/2015 Pain in limb 09/08/2015 SOB (shortness of breath) 2020 documented as of this encounter (statuses as of 01/08/2023) [facility] History of Past illness Narrative* Problem Noted Date Resolved Date GA (acute kidney injury) 05/19/20222021 Epistaxis 05/19/2022 05/19/2022 Acute respiratory failure with hypoxia 2 05/19/2022 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 04/23/2022 11/24/2022 Double vision 07/26/2017 09/30/2018 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 Headache(784.0) 09/08/2015 Abdominal pain, left lower quadrant 09/08/2015 Pain in limb 09/08/2015 SOB (shortness of breath) 2020 documented as of this encounter (statuses as of 01/21/2023) [facility] History of Past illness Narrative* Problem Noted Date Resolved Date GA (acute kidney injury) 05/19/20222021 Epistaxis 05/19/2022 05/19/2022 Acute respiratory failure with hypoxia 05/19/2022 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 04/23/2022 11/24/2022 Double vision 07/26/2017 09/30/2018 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 Headache(784.0) 09/08/2015 Abdominal pain, left lower quadrant 09/08/2015 Pain in limb 09/08/2015 SOB (shortness of breath) 2020 documented as of this encounter (statuses as of 01/26/2023) [facility] History of Past illness Narrative* Problem Noted Date Resolved Date GA (acute kidney injury) 05/19/20222021 Epistaxis 05/19/2022 05/19/2022 Acute respiratory failure with hypoxia 05/19/2022 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 04/23/2022 11/24/2022 Double vision 07/26/2017 09/30/2018 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 Headache(784.0) 09/08/2015 Abdominal pain, left lower quadrant 09/08/2015 Pain in limb 09/08/2015 SOB (shortness of breath) 2020 documented as of this encounter (statuses as of 01/26/2023) [facility] History of Past illness Narrative* Problem Noted Date Resolved Date GA (acute kidney injury) 05/19/20222021 Epistaxis 05/19/2022 05/19/2022 Acute respiratory failure with hypoxia 2 05/19/2022 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 04/23/2022 11/24/2022 Double vision 07/26/2017 09/30/2018 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 Headache(784.0) 09/08/2015 Abdominal pain, left lower quadrant 09/08/2015 Pain in limb 09/08/2015 SOB (shortness of breath) 2020 documented as of this encounter (statuses as of 01/29/2023) [facility] History of Past illness Narrative* Problem Noted Date Resolved Date GA (acute kidney injury) 05/19/20222021 Epistaxis 05/19/2022 05/19/2022 Acute respiratory failure with hypoxia 2 05/19/2022 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 04/23/2022 11/24/2022 Double vision 07/26/2017 09/30/2018 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 Headache(784.0) 09/08/2015 Abdominal pain, left lower quadrant 09/08/2015 Pain in limb 09/08/2015 SOB (shortness of breath) 2020 documented as of this encounter (statuses as of 02/01/2023) [facility] History of Past illness Narrative* Problem Noted Date Resolved Date GA (acute kidney injury) 05/19/20222021 Epistaxis 05/19/2022 05/19/2022 Acute respiratory failure with hypoxia 2 05/19/2022 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 04/23/2022 11/24/2022 Double vision 07/26/2017 09/30/2018 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 Headache(784.0) 09/08/2015 Abdominal pain, left lower quadrant 09/08/2015 Pain in limb 09/08/2015 SOB (shortness of breath) 2020 documented as of this encounter (statuses as of 02/17/2023) [facility] History of Past illness Narrative* Problem Noted Date Resolved Date GA (acute kidney injury) 05/19/20222021 Epistaxis 05/19/2022 05/19/2022 Acute respiratory failure with hypoxia 2 05/19/2022 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 04/23/2022 11/24/2022 Double vision 07/26/2017 09/30/2018 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 Headache(784.0) 09/08/2015 Abdominal pain, left lower quadrant 09/08/2015 Pain in limb 09/08/2015 SOB (shortness of breath) 2020 documented as of this encounter (statuses as of 02/23/2023) [facility] History of Past illness Narrative* Problem Noted Date Resolved Date GA (acute kidney injury) 05/19/20222021 Epistaxis 05/19/2022 05/19/2022 Acute respiratory failure with hypoxia 2 05/19/2022 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 04/23/2022 11/24/2022 Double vision 07/26/2017 09/30/2018 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 Headache(784.0) 09/08/2015 Abdominal pain, left lower quadrant 09/08/2015 Pain in limb 09/08/2015 SOB (shortness of breath) 2020 documented as of this encounter (statuses as of 02/23/2023) [place] [address]-30-2022 History of Past illness Narrative* Problem Noted Date Resolved Date GA (acute kidney injury) 05/19/20222021 Epistaxis 05/19/2022 05/19/2022 Acute respiratory failure with hypoxia 2 05/19/2022 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 04/23/2022 11/24/2022 Double vision 07/26/2017 09/30/2018 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 Headache(784.0) 09/08/2015 Abdominal pain, left lower quadrant 09/08/2015 Pain in limb 09/08/2015 SOB (shortness of breath) 2020 documented as of this encounter (statuses as of 02/24/2023) [facility] History of Past illness Narrative* Problem Noted Date Resolved Date GA (acute kidney injury) 05/19/20222021 Epistaxis 05/19/2022 05/19/2022 Acute respiratory failure with hypoxia 05/19/2022 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 04/23/2022 11/24/2022 Double vision 07/26/2017 09/30/2018 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 Headache(784.0) 09/08/2015 Abdominal pain, left lower quadrant 09/08/2015 Pain in limb 09/08/2015 SOB (shortness of breath) 2020 documented as of this encounter (statuses as of 03/05/2023) [facility] History of Past illness Narrative* Problem Noted Date Resolved Date GA (acute kidney injury) 05/19/20222021 Epistaxis 05/19/2022 05/19/2022 Acute respiratory failure with hypoxia 2 05/19/2022 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 04/23/2022 11/24/2022 Double vision 07/26/2017 09/30/2018 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 Headache(784.0) 09/08/2015 Abdominal pain, left lower quadrant 09/08/2015 Pain in limb 09/08/2015 SOB (shortness of breath) 2020 documented as of this encounter (statuses as of 03/10/2023) [facility] History of Past illness Narrative* Problem Noted Date Resolved Date GA (acute kidney injury) 05/19/20222021 Epistaxis 05/19/2022 05/19/2022 Acute respiratory failure with hypoxia 2 05/19/2022 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 04/23/2022 11/24/2022 Double vision 07/26/2017 09/30/2018 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 Headache(784.0) 09/08/2015 Abdominal pain, left lower quadrant 09/08/2015 Pain in limb 09/08/2015 SOB (shortness of breath) 2020 documented as of this encounter (statuses as of 03/16/2023) [facility] History of Past illness Narrative* Problem Noted Date Resolved Date GA (acute kidney injury) 05/19/20222021 Epistaxis 05/19/2022 05/19/2022 Acute respiratory failure with hypoxia 05/19/2022 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 04/23/2022 11/24/2022 Double vision 07/26/2017 09/30/2018 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 Headache(784.0) 09/08/2015 Abdominal pain, left lower quadrant 09/08/2015 Pain in limb 09/08/2015 SOB (shortness of breath) 2020 documented as of this encounter (statuses as of 03/23/2023) [facility] History of Past illness Narrative* Problem Noted Date Diagnosed Date Resolved Date GA (acute kidney injury) 05/19/2022 Epistaxis 05/19/2022 05/19/2022 Acute respiratory failure with hypoxia 05/19/2022 05/19/2022 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 04/23/2022 11/24/2022 Double vision 07/26/2017 09/30/2018 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 09/30/2018 Headache(784.0) 09/08/2015 Abdominal pain, left lower quadrant 09/08/2015 Pain in limb 09/08/2015 SOB (shortness of breath) documented as of this encounter (statuses as of 04/02/2023) [facility] History of Past illness Narrative* Problem Noted Date Diagnosed Date Resolved Date GA (acute kidney injury) 05/19/2022 Epistaxis 05/19/2022 05/19/2022 Acute respiratory failure with hypoxia 05/19/2022 05/19/2022 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 04/23/2022 11/24/2022 Double vision 07/26/2017 09/30/2018 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 09/30/2018 Headache(784.0) 09/08/2015 Abdominal pain, left lower quadrant 09/08/2015 Pain in limb 09/08/2015 SOB (shortness of breath) documented as of this encounter (statuses as of 04/17/2023) [facility] History of Past illness Narrative* Problem Noted Date Diagnosed Date Resolved Date GA (acute kidney injury) 05/19/2022 Epistaxis 05/19/2022 05/19/2022 Acute respiratory failure with hypoxia 05/19/2022 05/19/2022 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 04/23/2022 11/24/2022 Double vision 07/26/2017 09/30/2018 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 09/30/2018 Headache(784.0) 09/08/2015 Abdominal pain, left lower quadrant 09/08/2015 Pain in limb 09/08/2015 SOB (shortness of breath) documented as of this encounter (statuses as of 04/21/2023) [facility] History of Past illness Narrative* Problem Noted Date Diagnosed Date Resolved Date GA (acute kidney injury) 05/19/2022 Epistaxis 05/19/2022 05/19/2022 Acute respiratory failure with hypoxia 05/19/2022 05/19/2022 Malnutrition of mild degree 04/27/2022 04/22/2023 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 04/23/2022 11/24/2022 Double vision 07/26/2017 09/30/2018 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 09/30/2018 Headache(784.0) 09/08/2015 Abdominal pain, left lower quadrant 09/08/2015 Pain in limb 09/08/2015 SOB (shortness of breath) documented as of this encounter (statuses as of 04/23/2023) [facility] History of Past illness Narrative* Problem Noted Date Diagnosed Date Resolved Date GA (acute kidney injury) 05/19/2022 Epistaxis 05/19/2022 05/19/2022 Acute respiratory failure with hypoxia 05/19/2022 05/19/2022 Malnutrition of mild degree 04/27/2022 04/22/2023 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 04/23/2022 11/24/2022 Double vision 07/26/2017 09/30/2018 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 09/30/2018 Headache(784.0) 09/08/2015 Abdominal pain, left lower quadrant 09/08/2015 Pain in limb 09/08/2015 SOB (shortness of breath) documented as of this encounter (statuses as of 05/01/2023) [facility] History of Past illness Narrative* Problem Noted Date Diagnosed Date Resolved Date GA (acute kidney injury) 05/19/2022 Epistaxis 05/19/2022 05/19/2022 Acute respiratory failure with hypoxia 05/19/2022 05/19/2022 Malnutrition of mild degree 04/27/2022 04/22/2023 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 04/23/2022 11/24/2022 Double vision 07/26/2017 09/30/2018 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 09/30/2018 Headache(784.0) 09/08/2015 Abdominal pain, left lower quadrant 09/08/2015 Pain in limb 09/08/2015 SOB (shortness of breath) documented as of this encounter (statuses as of 05/04/2023) [facility] History of Past illness Narrative* Problem Noted Date Diagnosed Date Resolved Date GA (acute kidney injury) 05/19/2022 Epistaxis 05/19/2022 05/19/2022 Acute respiratory failure with hypoxia 05/19/2022 05/19/2022 Malnutrition of mild degree 04/27/2022 04/22/2023 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 04/23/2022 11/24/2022 Double vision 07/26/2017 09/30/2018 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 09/30/2018 Headache(784.0) 09/08/2015 Abdominal pain, left lower quadrant 09/08/2015 Pain in limb 09/08/2015 SOB (shortness of breath) documented as of this encounter (statuses as of 05/07/2023) [facility] History of Past illness Narrative* Problem Noted Date Diagnosed Date Resolved Date GA (acute kidney injury) 05/19/2022 Epistaxis 05/19/2022 05/19/2022 Acute respiratory failure with hypoxia 05/19/2022 05/19/2022 Malnutrition of mild degree 04/27/2022 04/22/2023 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 04/23/2022 11/24/2022 Double vision 07/26/2017 09/30/2018 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 09/30/2018 Headache(784.0) 09/08/2015 Abdominal pain, left lower quadrant 09/08/2015 Pain in limb 09/08/2015 SOB (shortness of breath) documented as of this encounter (statuses as of 05/11/2023) [facility] History of Past illness Narrative* Problem Noted Date Diagnosed Date Resolved Date GA (acute kidney injury) 05/19/2022 Epistaxis 05/19/2022 05/19/2022 Acute respiratory failure with hypoxia 05/19/2022 05/19/2022 Malnutrition of mild degree 04/27/2022 04/22/2023 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 04/23/2022 11/24/2022 Double vision 07/26/2017 09/30/2018 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 09/30/2018 Headache(784.0) 09/08/2015 Abdominal pain, left lower quadrant 09/08/2015 Pain in limb 09/08/2015 SOB (shortness of breath) documented as of this encounter (statuses as of 05/11/2023) [facility] History of Past illness Narrative* Problem Noted Date Diagnosed Date Resolved Date GA (acute kidney injury) 05/19/2022 Epistaxis 05/19/2022 05/19/2022 Acute respiratory failure with hypoxia 05/19/2022 05/19/2022 Malnutrition of mild degree 04/27/2022 04/22/2023 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 04/23/2022 11/24/2022 Double vision 07/26/2017 09/30/2018 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 09/30/2018 Headache(784.0) 09/08/2015 Abdominal pain, left lower quadrant 09/08/2015 Pain in limb 09/08/2015 SOB (shortness of breath) documented as of this encounter (statuses as of 05/24/2023) [facility] History of Past illness Narrative* Problem Noted Date Diagnosed Date Resolved Date GA (acute kidney injury) 05/19/2022 Epistaxis 05/19/2022 05/19/2022 Acute respiratory failure with hypoxia 05/19/2022 05/19/2022 Malnutrition of mild degree 04/27/2022 04/22/2023 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 04/23/2022 11/24/2022 Double vision 07/26/2017 09/30/2018 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 09/30/2018 Headache(784.0) 09/08/2015 Abdominal pain, left lower quadrant 09/08/2015 Pain in limb 09/08/2015 SOB (shortness of breath) documented as of this encounter (statuses as of 05/27/2023) [facility] History of Past illness Narrative* Problem Noted Date Diagnosed Date Resolved Date GA (acute kidney injury) 05/19/2022 Epistaxis 05/19/2022 05/19/2022 Acute respiratory failure with hypoxia 05/19/2022 05/19/2022 Malnutrition of mild degree 04/27/2022 04/22/2023 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 04/23/2022 11/24/2022 Double vision 07/26/2017 09/30/2018 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 09/30/2018 Headache(784.0) 09/08/2015 Abdominal pain, left lower quadrant 09/08/2015 Pain in limb 09/08/2015 SOB (shortness of breath) documented as of this encounter (statuses as of 05/28/2023) [facility] History of Past illness Narrative* Problem Noted Date Diagnosed Date Resolved Date GA (acute kidney injury) 05/19/2022 Epistaxis 05/19/2022 05/19/2022 Acute respiratory failure with hypoxia 05/19/2022 05/19/2022 Malnutrition of mild degree 04/27/2022 04/22/2023 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 04/23/2022 11/24/2022 Double vision 07/26/2017 09/30/2018 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 09/30/2018 Headache(784.0) 09/08/2015 Abdominal pain, left lower quadrant 09/08/2015 Pain in limb 09/08/2015 SOB (shortness of breath) documented as of this encounter (statuses as of 06/02/2023) [facility] History of Past illness Narrative* Problem Noted Date Diagnosed Date Resolved Date GA (acute kidney injury) 05/19/2022 Epistaxis 05/19/2022 05/19/2022 Acute respiratory failure with hypoxia 05/19/2022 05/19/2022 Malnutrition of mild degree 04/27/2022 04/22/2023 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 04/23/2022 11/24/2022 Double vision 07/26/2017 09/30/2018 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 09/30/2018 Headache(784.0) 09/08/2015 Abdominal pain, left lower quadrant 09/08/2015 Pain in limb 09/08/2015 SOB (shortness of breath) documented as of this encounter (statuses as of 06/09/2023) [facility] History of Past illness Narrative* Problem Noted Date Diagnosed Date Resolved Date GA (acute kidney injury) 05/19/2022 Epistaxis 05/19/2022 05/19/2022 Acute respiratory failure with hypoxia 05/19/2022 05/19/2022 Malnutrition of mild degree 04/27/2022 04/22/2023 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 04/23/2022 11/24/2022 Double vision 07/26/2017 09/30/2018 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 09/30/2018 Headache(784.0) 09/08/2015 Abdominal pain, left lower quadrant 09/08/2015 Pain in limb 09/08/2015 SOB (shortness of breath) documented as of this encounter (statuses as of 06/29/2023) [facility] History of Past illness Narrative* Problem Noted Date Diagnosed Date Resolved Date GA (acute kidney injury) 05/19/2022 Epistaxis 05/19/2022 05/19/2022 Acute respiratory failure with hypoxia 05/19/2022 05/19/2022 Malnutrition of mild degree 04/27/2022 04/22/2023 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 04/23/2022 11/24/2022 Double vision 07/26/2017 09/30/2018 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 09/30/2018 Headache(784.0) 09/08/2015 Abdominal pain, left lower quadrant 09/08/2015 Pain in limb 09/08/2015 SOB (shortness of breath) documented as of this encounter (statuses as of 06/30/2023) [address]30-2022 History of Past illness Narrative* Problem Noted Date Diagnosed Date Resolved Date GA (acute kidney injury) 05/19/2022 Epistaxis 05/19/2022 05/19/2022 Acute respiratory failure with hypoxia 05/19/2022 05/19/2022 Malnutrition of mild degree 04/27/2022 04/22/2023 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 04/23/2022 11/24/2022 Double vision 07/26/2017 09/30/2018 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 09/30/2018 Headache(784.0) 09/08/2015 Abdominal pain, left lower quadrant 09/08/2015 Pain in limb 09/08/2015 SOB (shortness of breath) documented as of this encounter (statuses as of 06/30/2023) [facility] History of Past illness Narrative* Problem Noted Date Diagnosed Date Resolved Date GA (acute kidney injury) 05/19/2022 Epistaxis 05/19/2022 05/19/2022 Acute respiratory failure with hypoxia 05/19/2022 05/19/2022 Malnutrition of mild degree 04/27/2022 04/22/2023 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 04/23/2022 11/24/2022 Double vision 07/26/2017 09/30/2018 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 09/30/2018 Headache(784.0) 09/08/2015 Abdominal pain, left lower quadrant 09/08/2015 Pain in limb 09/08/2015 SOB (shortness of breath) documented as of this encounter (statuses as of 07/01/2023) [facility] History of Past illness Narrative* Problem Noted Date Diagnosed Date Resolved Date GA (acute kidney injury) 05/19/2022 Epistaxis 05/19/2022 05/19/2022 Acute respiratory failure with hypoxia 05/19/2022 05/19/2022 Malnutrition of mild degree 04/27/2022 04/22/2023 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 04/23/2022 11/24/2022 Double vision 07/26/2017 09/30/2018 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 09/30/2018 Headache(784.0) 09/08/2015 Abdominal pain, left lower quadrant 09/08/2015 Pain in limb 09/08/2015 SOB (shortness of breath) documented as of this encounter (statuses as of 07/01/2023) [address]2022 History of Past illness Narrative* Problem Noted Date Diagnosed Date Resolved Date GA (acute kidney injury) 05/19/2022 Epistaxis 05/19/2022 05/19/2022 Acute respiratory failure with hypoxia 05/19/2022 05/19/2022 Malnutrition of mild degree 04/27/2022 04/22/2023 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 04/23/2022 11/24/2022 Double vision 07/26/2017 09/30/2018 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 09/30/2018 Headache(784.0) 09/08/2015 Abdominal pain, left lower quadrant 09/08/2015 Pain in limb 09/08/2015 SOB (shortness of breath) documented as of this encounter (statuses as of 07/13/2023) [address]2022 History of Past illness Narrative* Problem Noted Date Diagnosed Date Resolved Date GA (acute kidney injury) 05/19/2022 Epistaxis 05/19/2022 05/19/2022 Acute respiratory failure with hypoxia 05/19/2022 05/19/2022 Malnutrition of mild degree 04/27/2022 04/22/2023 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 04/23/2022 11/24/2022 Double vision 07/26/2017 09/30/2018 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 09/30/2018 Headache(784.0) 09/08/2015 Abdominal pain, left lower quadrant 09/08/2015 Pain in limb 09/08/2015 SOB (shortness of breath) documented as of this encounter (statuses as of 07/16/2023) [address]2022 History of Past illness Narrative* Problem Noted Date Diagnosed Date Resolved Date GA (acute kidney injury) 05/19/2022 Epistaxis 05/19/2022 05/19/2022 Acute respiratory failure with hypoxia 05/19/2022 05/19/2022 Malnutrition of mild degree 04/27/2022 04/22/2023 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 04/23/2022 11/24/2022 Double vision 07/26/2017 09/30/2018 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 09/30/2018 Headache(784.0) 09/08/2015 Abdominal pain, left lower quadrant 09/08/2015 Pain in limb 09/08/2015 SOB (shortness of breath) documented as of this encounter (statuses as of 07/17/2023) [facility] History of Past illness Narrative* Problem Noted Date Diagnosed Date Resolved Date GA (acute kidney injury) 05/19/2022 Epistaxis 05/19/2022 05/19/2022 Acute respiratory failure with hypoxia 05/19/2022 05/19/2022 Malnutrition of mild degree 04/27/2022 04/22/2023 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 04/23/2022 11/24/2022 Double vision 07/26/2017 09/30/2018 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 09/30/2018 Headache(784.0) 09/08/2015 Abdominal pain, left lower quadrant 09/08/2015 Pain in limb 09/08/2015 SOB (shortness of breath) documented as of this encounter (statuses as of 07/20/2023) [facility] History of Past illness Narrative* Problem Noted Date Diagnosed Date Resolved Date GA (acute kidney injury) 05/19/2022 Epistaxis 05/19/2022 05/19/2022 Acute respiratory failure with hypoxia 05/19/2022 05/19/2022 Malnutrition of mild degree 04/27/2022 04/22/2023 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 04/23/2022 11/24/2022 Double vision 07/26/2017 09/30/2018 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 09/30/2018 Headache(784.0) 09/08/2015 Abdominal pain, left lower quadrant 09/08/2015 Pain in limb 09/08/2015 SOB (shortness of breath) documented as of this encounter (statuses as of 07/22/2023) [facility] History of Past illness Narrative* Problem Noted Date Diagnosed Date Resolved Date GA (acute kidney injury) 05/19/2022 Epistaxis 05/19/2022 05/19/2022 Acute respiratory failure with hypoxia 05/19/2022 05/19/2022 Malnutrition of mild degree 04/27/2022 04/22/2023 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 04/23/2022 11/24/2022 Double vision 07/26/2017 09/30/2018 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 09/30/2018 Headache(784.0) 09/08/2015 Abdominal pain, left lower quadrant 09/08/2015 Pain in limb 09/08/2015 SOB (shortness of breath) documented as of this encounter (statuses as of 07/29/2023) [facility] History of Past illness Narrative* Problem Noted Date Diagnosed Date Resolved Date GA (acute kidney injury) 05/19/2022 Epistaxis 05/19/2022 05/19/2022 Acute respiratory failure with hypoxia 05/19/2022 05/19/2022 Malnutrition of mild degree 04/27/2022 04/22/2023 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 04/23/2022 11/24/2022 Double vision 07/26/2017 09/30/2018 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 09/30/2018 Headache(784.0) 09/08/2015 Abdominal pain, left lower quadrant 09/08/2015 Pain in limb 09/08/2015 SOB (shortness of breath) documented as of this encounter (statuses as of 08/03/2023) [facility] History of Past illness Narrative* Problem Noted Date Diagnosed Date Resolved Date GA (acute kidney injury) 05/19/2022 Epistaxis 05/19/2022 05/19/2022 Acute respiratory failure with hypoxia 05/19/2022 05/19/2022 Malnutrition of mild degree 04/27/2022 04/22/2023 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 04/23/2022 11/24/2022 Double vision 07/26/2017 09/30/2018 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 09/30/2018 Headache(784.0) 09/08/2015 Abdominal pain, left lower quadrant 09/08/2015 Pain in limb 09/08/2015 SOB (shortness of breath) documented as of this encounter (statuses as of 08/04/2023) [facility] History of Past illness Narrative* Problem Noted Date Diagnosed Date Resolved Date GA (acute kidney injury) 05/19/2022 Epistaxis 05/19/2022 05/19/2022 Acute respiratory failure with hypoxia 05/19/2022 05/19/2022 Malnutrition of mild degree 04/27/2022 04/22/2023 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 04/23/2022 11/24/2022 Double vision 07/26/2017 09/30/2018 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 09/30/2018 Headache(784.0) 09/08/2015 Abdominal pain, left lower quadrant 09/08/2015 Pain in limb 09/08/2015 SOB (shortness of breath) documented as of this encounter (statuses as of 08/04/2023) [facility] History of Past illness Narrative* Problem Noted Date Diagnosed Date Resolved Date GA (acute kidney injury) 05/19/2022 Epistaxis 05/19/2022 05/19/2022 Acute respiratory failure with hypoxia 05/19/2022 05/19/2022 Malnutrition of mild degree 04/27/2022 04/22/2023 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 04/23/2022 11/24/2022 Double vision 07/26/2017 09/30/2018 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 09/30/2018 Headache(784.0) 09/08/2015 Abdominal pain, left lower quadrant 09/08/2015 Pain in limb 09/08/2015 SOB (shortness of breath) documented as of this encounter (statuses as of 08/06/2023) [facility] History of Past illness Narrative* Problem Noted Date Diagnosed Date Resolved Date GA (acute kidney injury) 05/19/2022 Epistaxis 05/19/2022 05/19/2022 Acute respiratory failure with hypoxia 05/19/2022 05/19/2022 Malnutrition of mild degree 04/27/2022 04/22/2023 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 04/23/2022 11/24/2022 Double vision 07/26/2017 09/30/2018 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 09/30/2018 Headache(784.0) 09/08/2015 Abdominal pain, left lower quadrant 09/08/2015 Pain in limb 09/08/2015 SOB (shortness of breath) documented as of this encounter (statuses as of 08/11/2023) [facility] History of Past illness Narrative* Problem Noted Date Diagnosed Date Resolved Date GA (acute kidney injury) 05/19/2022 Epistaxis 05/19/2022 05/19/2022 Acute respiratory failure with hypoxia 05/19/2022 05/19/2022 Malnutrition of mild degree 04/27/2022 04/22/2023 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 04/23/2022 11/24/2022 Double vision 07/26/2017 09/30/2018 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 09/30/2018 Headache(784.0) 09/08/2015 Abdominal pain, left lower quadrant 09/08/2015 Pain in limb 09/08/2015 SOB (shortness of breath) documented as of this encounter (statuses as of 08/17/2023) [facility] History of Past illness Narrative* Problem Noted Date Diagnosed Date Resolved Date GA (acute kidney injury) 05/19/2022 Epistaxis 05/19/2022 05/19/2022 Acute respiratory failure with hypoxia 05/19/2022 05/19/2022 Malnutrition of mild degree 04/27/2022 04/22/2023 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 04/23/2022 11/24/2022 Double vision 07/26/2017 09/30/2018 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 09/30/2018 Headache(784.0) 09/08/2015 Abdominal pain, left lower quadrant 09/08/2015 Pain in limb 09/08/2015 SOB (shortness of breath) documented as of this encounter (statuses as of 08/18/2023) [facility] History of Past illness Narrative* Problem Noted Date Diagnosed Date Resolved Date GA (acute kidney injury) 05/19/2022 Epistaxis 05/19/2022 05/19/2022 Acute respiratory failure with hypoxia 05/19/2022 05/19/2022 Malnutrition of mild degree 04/27/2022 04/22/2023 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 04/23/2022 11/24/2022 Double vision 07/26/2017 09/30/2018 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 09/30/2018 Headache(784.0) 09/08/2015 Abdominal pain, left lower quadrant 09/08/2015 Pain in limb 09/08/2015 SOB (shortness of breath) documented as of this encounter (statuses as of 10/21/2023) [facility] History of Past illness Narrative* Problem Noted Date Diagnosed Date Resolved Date GA (acute kidney injury) 05/19/2022 Epistaxis 05/19/2022 05/19/2022 Acute respiratory failure with hypoxia 05/19/2022 05/19/2022 Malnutrition of mild degree 04/27/2022 04/22/2023 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 04/23/2022 11/24/2022 Double vision 07/26/2017 09/30/2018 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 09/30/2018 Headache(784.0) 09/08/2015 Abdominal pain, left lower quadrant 09/08/2015 Pain in limb 09/08/2015 SOB (shortness of breath) documented as of this encounter (statuses as of 10/22/2023) [facility] History of Past illness Narrative* Problem Noted Date Diagnosed Date Resolved Date GA (acute kidney injury) 05/19/2022 Epistaxis 05/19/2022 05/19/2022 Acute respiratory failure with hypoxia 05/19/2022 05/19/2022 Malnutrition of mild degree 04/27/2022 04/22/2023 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 04/23/2022 11/24/2022 Double vision 07/26/2017 09/30/2018 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 09/30/2018 Headache(784.0) 09/08/2015 Abdominal pain, left lower quadrant 09/08/2015 Pain in limb 09/08/2015 SOB (shortness of breath) documented as of this encounter (statuses as of 10/26/2023) [facility] History of Past illness Narrative* Problem Noted Date Diagnosed Date Resolved Date GA (acute kidney injury) 05/19/2022 Epistaxis 05/19/2022 05/19/2022 Acute respiratory failure with hypoxia 05/19/2022 05/19/2022 Malnutrition of mild degree 04/27/2022 04/22/2023 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 04/23/2022 11/24/2022 Double vision 07/26/2017 09/30/2018 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 09/30/2018 Headache(784.0) 09/08/2015 Abdominal pain, left lower quadrant 09/08/2015 Pain in limb 09/08/2015 SOB (shortness of breath) documented as of this encounter (statuses as of 10/28/2023) [facility] History of Past illness Narrative* Problem Noted Date Diagnosed Date Resolved Date GA (acute kidney injury) 05/19/2022 Epistaxis 05/19/2022 05/19/2022 Acute respiratory failure with hypoxia 05/19/2022 05/19/2022 Malnutrition of mild degree 04/27/2022 04/22/2023 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 04/23/2022 11/24/2022 Double vision 07/26/2017 09/30/2018 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 09/30/2018 Headache(784.0) 09/08/2015 Abdominal pain, left lower quadrant 09/08/2015 Pain in limb 09/08/2015 SOB (shortness of breath) documented as of this encounter (statuses as of 11/01/2023) [facility] History of Past illness Narrative* Problem Noted Date Diagnosed Date Resolved Date GA (acute kidney injury) 05/19/2022 Epistaxis 05/19/2022 05/19/2022 Acute respiratory failure with hypoxia 05/19/2022 05/19/2022 Malnutrition of mild degree 04/27/2022 04/22/2023 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 04/23/2022 11/24/2022 Double vision 07/26/2017 09/30/2018 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 09/30/2018 Headache(784.0) 09/08/2015 Abdominal pain, left lower quadrant 09/08/2015 Pain in limb 09/08/2015 SOB (shortness of breath) documented as of this encounter (statuses as of 11/02/2023) [facility] History of Past illness Narrative* Problem Noted Date Diagnosed Date Resolved Date GA (acute kidney injury) 05/19/2022 Epistaxis 05/19/2022 05/19/2022 Acute respiratory failure with hypoxia 05/19/2022 05/19/2022 Malnutrition of mild degree 04/27/2022 04/22/2023 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 04/23/2022 11/24/2022 Double vision 07/26/2017 09/30/2018 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 09/30/2018 Headache(784.0) 09/08/2015 Abdominal pain, left lower quadrant 09/08/2015 Pain in limb 09/08/2015 SOB (shortness of breath) documented as of this encounter (statuses as of 11/03/2023) [facility] History of Past illness Narrative* Problem Noted Date Diagnosed Date Resolved Date GA (acute kidney injury) 05/19/2022 Epistaxis 05/19/2022 05/19/2022 Acute respiratory failure with hypoxia 05/19/2022 05/19/2022 Malnutrition of mild degree 04/27/2022 04/22/2023 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 04/23/2022 11/24/2022 Double vision 07/26/2017 09/30/2018 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 09/30/2018 Headache(784.0) 09/08/2015 Abdominal pain, left lower quadrant 09/08/2015 Pain in limb 09/08/2015 SOB (shortness of breath) documented as of this encounter (statuses as of 11/04/2023) [facility] History of Past illness Narrative* Problem Noted Date Diagnosed Date Resolved Date GA (acute kidney injury) 05/19/2022 Epistaxis 05/19/2022 05/19/2022 Acute respiratory failure with hypoxia 05/19/2022 05/19/2022 Malnutrition of mild degree 04/27/2022 04/22/2023 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 04/23/2022 11/24/2022 Double vision 07/26/2017 09/30/2018 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 09/30/2018 Headache(784.0) 09/08/2015 Abdominal pain, left lower quadrant 09/08/2015 Pain in limb 09/08/2015 SOB (shortness of breath) documented as of this encounter (statuses as of 11/05/2023) [facility] History of Past illness Narrative* Problem Noted Date Diagnosed Date Resolved Date GA (acute kidney injury) 05/19/2022 Epistaxis 05/19/2022 05/19/2022 Acute respiratory failure with hypoxia 05/19/2022 05/19/2022 Malnutrition of mild degree 04/27/2022 04/22/2023 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 04/23/2022 11/24/2022 Double vision 07/26/2017 09/30/2018 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 09/30/2018 Headache(784.0) 09/08/2015 Abdominal pain, left lower quadrant 09/08/2015 Pain in limb 09/08/2015 SOB (shortness of breath) documented as of this encounter (statuses as of 11/09/2023) [facility] History of Past illness Narrative* Problem Noted Date Diagnosed Date Resolved Date GA (acute kidney injury) 05/19/2022 Epistaxis 05/19/2022 05/19/2022 Acute respiratory failure with hypoxia 05/19/2022 05/19/2022 Malnutrition of mild degree 04/27/2022 04/22/2023 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 04/23/2022 11/24/2022 Double vision 07/26/2017 09/30/2018 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 09/30/2018 Headache(784.0) 09/08/2015 Abdominal pain, left lower quadrant 09/08/2015 Pain in limb 09/08/2015 SOB (shortness of breath) documented as of this encounter (statuses as of 11/09/2023) [facility] History of Past illness Narrative* Problem Noted Date Diagnosed Date Resolved Date GA (acute kidney injury) 05/19/2022 Epistaxis 05/19/2022 05/19/2022 Acute respiratory failure with hypoxia 05/19/2022 05/19/2022 Malnutrition of mild degree 04/27/2022 04/22/2023 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 04/23/2022 11/24/2022 Double vision 07/26/2017 09/30/2018 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 09/30/2018 Headache(784.0) 09/08/2015 Abdominal pain, left lower quadrant 09/08/2015 Pain in limb 09/08/2015 SOB (shortness of breath) documented as of this encounter (statuses as of 11/17/2023) [facility] History of Past illness Narrative* Problem Noted Date Diagnosed Date Resolved Date GA (acute kidney injury) 05/19/2022 Epistaxis 05/19/2022 05/19/2022 Acute respiratory failure with hypoxia 05/19/2022 05/19/2022 Malnutrition of mild degree 04/27/2022 04/22/2023 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 04/23/2022 11/24/2022 Double vision 07/26/2017 09/30/2018 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 09/30/2018 Headache(784.0) 09/08/2015 Abdominal pain, left lower quadrant 09/08/2015 Pain in limb 09/08/2015 SOB (shortness of breath) documented as of this encounter (statuses as of 11/23/2023) [facility] History of Past illness Narrative* Problem Noted Date Diagnosed Date Resolved Date GA (acute kidney injury) 05/19/2022 Epistaxis 05/19/2022 05/19/2022 Acute respiratory failure with hypoxia 05/19/2022 05/19/2022 Malnutrition of mild degree 04/27/2022 04/22/2023 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 04/23/2022 11/24/2022 Double vision 07/26/2017 09/30/2018 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 09/30/2018 Headache(784.0) 09/08/2015 Abdominal pain, left lower quadrant 09/08/2015 Pain in limb 09/08/2015 SOB (shortness of breath) documented as of this encounter (statuses as of 11/25/2023) [facility] History of Past illness Narrative* Problem Noted Date Diagnosed Date Resolved Date GA (acute kidney injury) 05/19/2022 Epistaxis 05/19/2022 05/19/2022 Acute respiratory failure with hypoxia 05/19/2022 05/19/2022 Malnutrition of mild degree 04/27/2022 04/22/2023 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 04/23/2022 11/24/2022 Double vision 07/26/2017 09/30/2018 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 09/30/2018 Headache(784.0) 09/08/2015 Abdominal pain, left lower quadrant 09/08/2015 Pain in limb 09/08/2015 SOB (shortness of breath) documented as of this encounter (statuses as of 11/30/2023) [facility] History of Past illness Narrative* Problem Noted Date Diagnosed Date Resolved Date GA (acute kidney injury) 05/19/2022 Epistaxis 05/19/2022 05/19/2022 Acute respiratory failure with hypoxia 05/19/2022 05/19/2022 Malnutrition of mild degree 04/27/2022 04/22/2023 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 04/23/2022 11/24/2022 Double vision 07/26/2017 09/30/2018 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 09/30/2018 Headache(784.0) 09/08/2015 Abdominal pain, left lower quadrant 09/08/2015 Pain in limb 09/08/2015 SOB (shortness of breath) documented as of this encounter (statuses as of 12/01/2023) [facility] History of Past illness Narrative* Problem Noted Date Diagnosed Date Resolved Date GA (acute kidney injury) 05/19/2022 Epistaxis 05/19/2022 05/19/2022 Acute respiratory failure with hypoxia 05/19/2022 05/19/2022 Malnutrition of mild degree 04/27/2022 04/22/2023 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 04/23/2022 11/24/2022 Double vision 07/26/2017 09/30/2018 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 09/30/2018 Headache(784.0) 09/08/2015 Abdominal pain, left lower quadrant 09/08/2015 Pain in limb 09/08/2015 SOB (shortness of breath) documented as of this encounter (statuses as of 12/02/2023) [facility] History of Past illness Narrative* Problem Noted Date Diagnosed Date Resolved Date GA (acute kidney injury) 05/19/2022 Epistaxis 05/19/2022 05/19/2022 Acute respiratory failure with hypoxia 05/19/2022 05/19/2022 Malnutrition of mild degree 04/27/2022 04/22/2023 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 04/23/2022 11/24/2022 Double vision 07/26/2017 09/30/2018 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 09/30/2018 Headache(784.0) 09/08/2015 Abdominal pain, left lower quadrant 09/08/2015 Pain in limb 09/08/2015 SOB (shortness of breath) documented as of this encounter (statuses as of 12/07/2023) [facility] History of Past illness Narrative* Problem Noted Date Diagnosed Date Resolved Date GA (acute kidney injury) 05/19/2022 Epistaxis 05/19/2022 05/19/2022 Acute respiratory failure with hypoxia 05/19/2022 05/19/2022 Malnutrition of mild degree 04/27/2022 04/22/2023 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 04/23/2022 11/24/2022 Double vision 07/26/2017 09/30/2018 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 09/30/2018 Headache(784.0) 09/08/2015 Abdominal pain, left lower quadrant 09/08/2015 Pain in limb 09/08/2015 SOB (shortness of breath) documented as of this encounter (statuses as of 12/08/2023) [facility] of Past illness Narrative* Problem Noted Date Diagnosed Date Resolved Date GA (acute kidney injury) 05/19/2022 Epistaxis 05/19/2022 05/19/2022 Acute respiratory failure with hypoxia 05/19/2022 05/19/2022 Malnutrition of mild degree 04/27/2022 04/22/2023 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 04/23/2022 11/24/2022 Double vision 07/26/2017 09/30/2018 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 09/30/2018 Headache(784.0) 09/08/2015 Abdominal pain, left lower quadrant 09/08/2015 Pain in limb 09/08/2015 SOB (shortness of breath) documented as of this encounter (statuses as of 12/09/2023) [facility] History of Past illness Narrative* Problem Noted Date Diagnosed Date Resolved Date GA (acute kidney injury) 05/19/2022 Epistaxis 05/19/2022 05/19/2022 Acute respiratory failure with hypoxia 05/19/2022 05/19/2022 Malnutrition of mild degree 04/27/2022 04/22/2023 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 04/23/2022 11/24/2022 Double vision 07/26/2017 09/30/2018 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 09/30/2018 Headache(784.0) 09/08/2015 Abdominal pain, left lower quadrant 09/08/2015 Pain in limb 09/08/2015 SOB (shortness of breath) documented as of this encounter (statuses as of 12/10/2023) [facility] of Past illness Narrative* Problem Noted Date Diagnosed Date Resolved Date GA (acute kidney injury) 05/19/2022 Epistaxis 05/19/2022 05/19/2022 Acute respiratory failure with hypoxia 05/19/2022 05/19/2022 Malnutrition of mild degree 04/27/2022 04/22/2023 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 04/23/2022 11/24/2022 Double vision 07/26/2017 09/30/2018 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 09/30/2018 Headache(784.0) 09/08/2015 Abdominal pain, left lower quadrant 09/08/2015 Pain in limb 09/08/2015 SOB (shortness of breath) documented as of this encounter (statuses as of 12/23/2023) [facility] History of Past illness Narrative* Problem Noted Date Diagnosed Date Resolved Date GA (acute kidney injury) 05/19/2022 Epistaxis 05/19/2022 05/19/2022 Acute respiratory failure with hypoxia 05/19/2022 05/19/2022 Malnutrition of mild degree 04/27/2022 04/22/2023 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 04/23/2022 11/24/2022 Double vision 07/26/2017 09/30/2018 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 09/30/2018 Headache(784.0) 09/08/2015 Abdominal pain, left lower quadrant 09/08/2015 Pain in limb 09/08/2015 SOB (shortness of breath) documented as of this encounter (statuses as of 12/23/2023) [facility] History of Past illness Narrative* Problem Noted Date Diagnosed Date Resolved Date GA (acute kidney injury) 05/19/2022 Epistaxis 05/19/2022 05/19/2022 Acute respiratory failure with hypoxia 05/19/2022 05/19/2022 Malnutrition of mild degree 04/27/2022 04/22/2023 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 04/23/2022 11/24/2022 Double vision 07/26/2017 09/30/2018 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 09/30/2018 Headache(784.0) 09/08/2015 Abdominal pain, left lower quadrant 09/08/2015 Pain in limb 09/08/2015 SOB (shortness of breath) documented as of this encounter (statuses as of 12/24/2023) [facility] History of Past illness Narrative* Problem Noted Date Diagnosed Date Resolved Date GA (acute kidney injury) 05/19/2022 Epistaxis 05/19/2022 05/19/2022 Acute respiratory failure with hypoxia 05/19/2022 05/19/2022 Malnutrition of mild degree 04/27/2022 04/22/2023 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 04/23/2022 11/24/2022 Double vision 07/26/2017 09/30/2018 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 09/30/2018 Headache(784.0) 09/08/2015 Abdominal pain, left lower quadrant 09/08/2015 Pain in limb 09/08/2015 SOB (shortness of breath) documented as of this encounter (statuses as of 12/29/2023) [facility] of Past illness Narrative* Problem Noted Date Diagnosed Date Resolved Date GA (acute kidney injury) 05/19/2022 Epistaxis 05/19/2022 05/19/2022 Acute respiratory failure with hypoxia 05/19/2022 05/19/2022 Malnutrition of mild degree 04/27/2022 04/22/2023 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 04/23/2022 11/24/2022 Double vision 07/26/2017 09/30/2018 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 09/30/2018 Headache(784.0) 09/08/2015 Abdominal pain, left lower quadrant 09/08/2015 Pain in limb 09/08/2015 SOB (shortness of breath) documented as of this encounter (statuses as of 12/30/2023) [facility] of Past illness Narrative* Problem Noted Date Diagnosed Date Resolved Date GA (acute kidney injury) 05/19/2022 Epistaxis 05/19/2022 05/19/2022 Acute respiratory failure with hypoxia 05/19/2022 05/19/2022 Malnutrition of mild degree 04/27/2022 04/22/2023 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 04/23/2022 11/24/2022 Double vision 07/26/2017 09/30/2018 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 09/30/2018 Headache(784.0) 09/08/2015 Abdominal pain, left lower quadrant 09/08/2015 Pain in limb 09/08/2015 SOB (shortness of breath) documented as of this encounter (statuses as of 01/04/2024) [facility] History of Present illness Narrative* Soraya Cavazos - 05/15/2022 11:32 AM EDT Incidental Lung Nodule Enrollment Call attempt: 1st Attempt Call status: Complete Enrolled in Lung Nodule program: Referred Lung Nodule outreach: Needs outreach Lung Nodule Program Location: [place] Letter sent documented in this encounterUniversity [facility] History of Present illness Narrative* RT Carson(R) - 04/23/2022 12:30 PM EDT Radiology Service Progress Note DATE OF SERVICE: April 23, 2022 TIME: 12:39 PM PATIENT IDENTITY VERIFICATION COMPLETED USING TWO (2) STANDARD IDENTIFIERS: Name and Date of confirmed by patient verbally and Name and Date of confirmed by identification band. FALL SCREENING: Has the patient had 2 falls in the last year or 1 fall with injury or currently using an Ambulatory Assistive Device (Walker, Cane, Wheelchair, Crutches, etc.)? No PATIENT GENDER DATA: Male PATIENT RELEVANT IMPLANT DATA REVIEWED: Not Applicable ALLERGIES: Reviewed and unchanged CONTRAST ALLERGY: NO. EXAM: CT -CONTRAST INDUCED NEPHROPATHY RISK FACTORS: Patient age > 60 years CREATININE: Creatinine Date Value Ref Range Status 02/28/2022 0.90 0.73 - 1.22 mg/dL Final 04/09/2021 1.04 0.73 - 1.22 mg/dL Final Creatinine (POCT) Date Value Ref Range Status 09/23/2021 1.10 0.60 - 1.30 mg/dL Final Estimated Glomerular Filtration Rate Date Value Ref Range Status 02/28/2022 92 >=60 mL/min/1.73m Final Comment: Estimated Glomerular Filtration Rate (eGFR) is calculated using the 2020 CKD-EPI creatinine equation. This equation utilizes serum creatinine, sex, and age as parameters. The creatinine assay has traceable calibration to isotope dilution- mass spectrometry. Refer to KDIGO guidelines for clinical interpretation. In patients with unstable renal function, e.g. those with acute kidney injury, the eGFRmay not accurately reflect actual GFR. eGFR- (POCT) Date Value Ref Range Status 09/23/2021 >60 mL/min/1.73 m2 Final P.O.C.T. RESULTS: POC done: Yes, See Lab Tab April 23, 2022 TREATMENT: No Hydration needed. PERIPHERAL IV DATA: Inpatient - refer to LDA documentation RADIOLOGY DEPARTMENT: CT; Exam(s) Completed: Chest and CTA Aorta/leg runoff SIGNATURE: RT Carson(R) PATIENT NAME: Shilo Hathaway DATE: April 23, 2022 TIME: 12:39 PM documented in this encounterUniversity [facility] Miscellaneous Notes* Telephone Encounter - Candace Fabian APRN.CNP - 04/20/2022 12:[address] Kirkpatrick is back in office 04/21/2022 and will address this at that time Candace Fabian APRN.CNP documented in this encounterUniversity Hospitals [facility] Miscellaneous Notes* Telephone Encounter - Dixie Doss - 04/17/2022 3:01 PM EDT Called patient to schedule an appointment with Dr. Hughes. Had to leave a voicemail. Asked that hereturn my call at his convenience. documented in this [facility]07-29-2022 Miscellaneous Notes* Telephone Encounter - Chary Coleman - 04/17/2022 9:10 AM EDT Pt called to advise his left big toe is turning black. Not the nail, only the toe. Message sent to [employer]. documented in this encounterUniversity Hospitals [facility]07-27[facility]22 History of Present illness Narrative* RT Jose(R) - 04/15/2022 5:30 PM EDT Radiology Service Progress Note PATIENT NAME: Shilo Hathaway DATE OF SERVICE: April 15, 2022 TIME: 6:09 PM PATIENT IDENTITY VERIFICATION COMPLETED USING TWO (2) IDENTIFIERS: Name and Date of confirmedby patient verbally and Name and Date of confirmed by identification band. FALL SCREENING: Has the patient had 2 falls in the last year or 1 fall with injury or currently using an Ambulatory Assistive Device (Walker, Cane, Wheelchair, Crutches, etc.)? Yes, Patient High Riskfor Falls What interventions were put in place to prevent falls during this visit? Instructed Patient to Callfor Help if Needed, Offered Assistance with Transfers/Clothing, Instructed Patient to Remain Seated(Not on Exam Table) Until Exam, Increased Observations by Caregivers and patient is unable to stand PATIENT GENDER DATA: Male PATIENT RELEVANT IMPLANT DATA REVIEWED: Yes RADIOLOGY DEPARTMENT: MR; Exam(s) Completed: Spine: Lumbar spine PERIPHERAL IV DATA: Not applicable SIGNED BY: RT Jose(R) April 15, 2022 6:09 PM documented in this encounterUniversity Hospitals Geaug[facility] Center07-27-2022 Miscellaneous Notes* Telephone Encounter - Jyotsna Andino - 04/15/2022 8:35 AM EDT Reached out to patient and LVM to get scheduled for a Bilateral EMG with Dr. Craig Johns on 04/28/2022. Jyotsna Andino documented in this encounterUniversity Hospitals Geaug[facility] Center07-26-2022 Miscellaneous Notes* Telephone Encounter - Jyotsna Andino - 04/14/2022 3:51 PM EDT Need to call central scheduling to schedule the STAT MRI. Spoke to someone over there already but they were unable to get a hold of anyone at the [place] [facility] [place] location. Patient wants a bigger machine. Patient wants to be called on his mobile. said early if possible or late. Jyotsna Andino * Telephone Encounter - Jyotsna Sina - 04/14/2022 3:33 PM EDT 1. Have you had any surgeries on the body part being scanned? no If yes, When? 2. Have you had any recent x-rays on the body part being scanned? yes 3. Do you have a pace maker/defibulator? no 4. Do you have renal disease? no 5. Are you diabetic? yes 6. Do you have high blood pressure? yes 7. Do you have port in the arm or chest? no 8. Do you have any metal plates/clips/screws? no 9. Any Myeloma disease and/or tumors? no 10. Any collagen vascular disease? yes 11. Do you have any problems starting an IV? no 12. How much do you weigh? 170 13. Any allergies to MRI dye? no 14.Any chance of being ? 15.Is the patient in a wheel chair? 16. Is the patient coming from a snf? 17. Do you have any metal fragments in your eyes or head? no If YES please get an orbital x-ray BEFORE patient leaves. 18.Are you claustrophobic?no 19. Have you done any care transition coordinator or physical therapy in the past? noIf yes Where? (If not within [facility], patient needs to sign a medical records release) 20. What day and time is best for you? anytime 21. What [facility] facility would you like to go to? [facility] 22. What is the best number to reach you back at? [phone] 23. If the order states with and without contrast look at their age, they may need blood work done.If they are over 60 they need a BUN/Creatinine done. ROUTE TO [facility] FOR INSURANCE APPROVAL, UNLESS ITS MEDICARE/STRAIGHT MEDICAID documented in this encounterUniversity Hospitals Geauga Medical Center07-26-2022 History of Present illness Narrative* Malgorzata Kirkpatrick MD - 04/14/2022 2:57 PM EDT Images from the original note were not included. [facility] Phone: Date of Evaluation: 04/14/2022 Patient Name: Shilo Hathaway : 1950 Subjective: Patient presents with: New Patient . HPI: Shilo Hathaway is a 71 year old male with PMHx of PVD, Heart and vascular stenting, CVA, VA and carotid endarterectomy who presents for new patient evaluation of back pain. He noted the onset of pain inthe right thigh and lumbar area in early December. He saw his PCP and had lumbar xrays and did PT withno relief. He ended up going to theED and he was admitted overnight for the pain. He had a lumbar ES I a few days after D/c in interventional radiology with no relief at all. Lumbar MRI was done whilehe was in the hospital. He saw neurosurgery and he did not have significant central stenosis and was sent for evaluation. He has some constant aching christian in the bilateral calves and thighs and it feels like the legs willlock up with walking. He has a lot of pain in the Pain Assessment: INTAKE PAIN ASSESSMENT 03/30/2022 04/14/2022 Are you having pain associated with your visit today? Yes, Provider notified Yes, Provider notified Pain Scales Verbal (Numeric Rating or Visual Analog Scale) Verbal (Numeric Rating or Visual Analog Scale) Pain Level 10 8 Pain Location Back-Lower (No Data) Description Aching;Sore;Shooting;Numbness;Tingling;Radiating;Sharp Spasm;Aching;Tingling Duration Amount of Time 3 - Duration Units Months Months Frequency Continuous Continuous Intervention/Comfort measure - Medication Comments - nothing is helping Pain Assessment (RN/LOAN EXAMINER) - - OARRS Report: PDMP website checked and validated. All prescriptions have been APPROPRIATELY filled. No suspiciousactivity was identified. 04/14/2022 by Malgorzata Kirkpatrick MD Past Medical History: PAST MEDICAL HISTORY Diagnosis Date Aortoiliac occlusive disease (HCC) Atherosclerotic heart disease of mentasta coronary artery without angina pectoris Carotid artery occlusion Carotid artery stenosis Cerebrovascular accident (CVA) ([facility]) Coronary arteriosclerosis [place] 1998 Depressive disorder Disc disorder of lumbar region Diverticulitis of colon Diverticulitis of colon Essential tremor Gastroesophageal reflux disease Generalized anxiety disorder Hiatal hernia History of myocardial infarction Hyperlipidemia Hypertension Intervertebral disc disorder of lumbar region with myelopathy Irritable bowel syndrome Myocardial infarction (HCC) Old myocardial infarction Peripheral vascular disease ([facility]) PERS HX COLONIC POLYPS Preoperative testing 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 Sleep apnea SOB (shortness of breath) Thrombosis of right femoral-femoral bypass graft ([facility]) Type 2 diabetes mellitus ([facility]) Past Surgical History: PAST SURGICAL HISTORY Procedure Laterality Date ANGIOPLASTY 1998, 2004, 2013 CAROTID ENDARTERECTOMY Bilateral right 02/2013, left 08/2001 COLONOSCOPY FLX DX W/COLLJ SPEC WHEN PFRMD 2000 Colonoscopy with polypectomies ESOPHAGOGASTRODUODENOSCOPY TRANSORAL DIAGNOSTIC 2000 EGD reportedly normal EXPLORATION GROIN Left 04/29/2018 Left Groin Exploration, Thrombectomy of Left Limb of Axillo-Bifemoral Bypass, Revision of Left Femoral Anastomosis INSERT INTRACORONARY STENT 1998 RCA LAPAROSCOPY SURG CHOLECYSTECTOMY 1997 Cholecystectomy, lap LEFT HEART CATH,PERCUTANEOUS 1998 Cardiac cath, L heart PAST SURGICAL HISTORY OF Carotid stenosis PAST SURGICAL HISTORY OF Bilateral 12/25/2016 Axillo bifem bypass PAST SURGICAL HISTORY OF ureter removal STENT PLACEMENT 1998 BMS RCA STENT PLACEMENT 11/2013 MARVIN RCA Family History: FAMILY HISTORY Problem Relation Age of Onset Ischemic Heart Disease Father Cancer Father Coronary Artery Disease Father Breast Cancer Mother Social History: Social History Tobacco Use Smoking status: Former Smoker Types: Cigarettes Quit date: 03/06/1999 Years since quittin.1 Smokeless tobacco: Never Used Tobacco comment: Start date: 1969; Stop date: 1998 Vaping Use Vaping Use: Never used Substance Use Topics Alcohol use: No Comment: abstinent x 6 yrs Drug use: No Allergies: ALLERGIES Allergen Reactions Atorvastatin Myalgia Levofloxacin Unknown Metformin Diarrhea Rosuvastatin Calcium Other: See Comments Pain,abdomen Current Medications: traMADol (ULTRAM) 50 mg tablet Take 1 tablet by mouth every 6 hours as needed for pain. amLODIPine (NORVASC) 5 mg tablet Take 1 tablet by mouth once daily. ramipril (ALTACE) 10 mg capsule Take 1 capsule by mouth once daily. escitalopram oxalate (LEXAPRO) 10 mg tablet Take 1 tablet by mouth once daily. clopidogrel (PLAVIX) 75 mg tablet Take 1 tablet by mouth once daily. insulin glargine (LANTUS SOLOSTAR U-100 INSULIN) 100 unit/mL (3 mL) Inject 20 Units subcutaneously every morning. insulin lispro (HUMALOG KWIKPEN INSULIN) 200 unit/mL (3 mL) injection Inject 46 Units subcutaneously three times daily before meals. Dispense 20 pens for 90 days. DX: E11.42, E11.65, Z79.4 insulin NPH (HumuLIN N,NovoLIN N) pen Inject 45 Units subcutaneously daily at bedtime. DX: E11.42, E11.65, Z79.4 atenolol (TENORMIN) 50 mg tablet Take 1 tablet by mouth once daily. rosuvastatin (CRESTOR) 20 mg tablet Take 1 tablet by mouth once daily. fenofibrate nanocrystallized (TRICOR) 145 mg tablet Take 1 tablet by mouth once daily. TRUE METRIX GLUCOSE TEST STRIP test strip Use to test glucose 4 times daily, as directed. DX: E11.42, E11.65, Z79.4 UNIFINE PENTIPS PLUS 32 gauge x 5/32 Use for insulin pen injections 5 times daily, as directed. DX: E11.42, E11.65, Z79.4 lancets (UNILET SUPER THIN LANCETS) 30 gauge Use to test glucose 4 times daily, as directed. DX: E11.42, E11.65, Z79.4 valACYclovir (VALTREX) 1 gram Take 1 tablet by mouth three times daily. ACETAMINOPHEN (TYLENOL ORAL) Take 1-2 tablets by mouth every 6 hours as needed. aspirin, enteric coated (ASPIRIN, ENTERIC COATED) 325 mg EC tablet Take 325 mg by mouth once daily. MULTIVIT &MINERALS/FERROUS FUM (MULTI VITAMIN ORAL) Take by mouth once daily. FLAXSEED OIL (OMEGA 3 ORAL) Take 1,000 mg by mouth once daily. gabapentin (NEURONTIN) 400 mg capsule Take 1 capsule by mouth three times daily for 90 days. I have confirmed and edited as necessary, the PFSH and ROS obtained by others. Objective: Pulse 76 Resp 14 SpO2 98% Physical Exam Vitals and nursing note reviewed. Constitutional: Appearance: Normal appearance. HENT: Head: Normocephalic and atraumatic. Nose: Nose normal. Pulmonary: Effort: Pulmonary effort is normal. Musculoskeletal: General: Tenderness present. No swelling, deformity or signs of injury. Lumbar back: Tenderness and bony tenderness present. No swelling, edema, deformity, signs of trauma, lacerations or spasms. Decreased range of motion. Negative right straight leg raise test and negative left straight leg raise test. No scoliosis. Right lower leg: No edema. Left lower leg: No edema. Comments: Reduced lumbar ROM , worse with extension. He was clearly in a significant amount of painand had difficulty getting up out of the chair. He had a significant bilateral foot drop and could not provide any resistance with ankle dorsiflexion. Sensation was reduced in a stocking distribution due to his neuropathy. Deep tendon reflexes were not elicitable. His feet were cold and purple and I could not elicit pulses, likely due to his history of severe peripheral vascular disease. Skin: General: Skin is warm and dry. Neurological: General: No focal deficit present. Mental Status: He is alert and oriented to person, place, and time. Sensory: Sensory deficit present. Motor: Weakness present. No atrophy. Gait: Gait abnormal. Deep Tendon Reflexes: Reflexes abnormal. Psychiatric: Mood and Affect: Mood normal. Behavior: Behavior normal. Thought Content: Thought content normal. Judgment: Judgment normal. Imaging: MRI Spine Report MRI LUMBAR SPINE WO IVCON Exam End: 03/01/2022 8:04 AM (Final result) Narrative: * * *Final Report* * * DATE OF EXAM: Mar 01 2022 8:04AM [facility] 0303 - MRI LUMBAR SPINE WO IVCON / PROCEDURE REASON: Spinal stenosis, lumbar * * * * Physician Interpretation * * * * EXAMINATION: MRI LUMBAR SPINE WO IVCON CLINICAL HISTORY: Lumbar spinal stenosis. Sciatica, low back pain when laying flat. TECHNIQUE: Routine lumbosacral spine MR protocol without gadolinium. MQ: [id number] COMPARISON: CT lumbar spine 02/28/2022. Lumbar spine radiographs 12/02/2021. RESULT: Counting reference: Lumbosacral junction. For the purposes of this report, L4-5 is considered the level of the iliac crest and assume there are 5 lumbar-type vertebrae. Anatomic variant: None. Localizer images: No additional findings. Alignment: Alignment is anatomic. Bone marrow signal/fracture: No evidence of pathologic marrow infiltration. No evidence of prior fracture. Conus: The conus is within normal limits of signal intensity and morphology. Paraspinal soft tissues: Paraspinal soft tissues are within normal limits. Lower thoracic spine: Visualized lower thoracic canal and foramina are patent. T12-L1: Canal and foramina are patent. L1-L2: Canal and foramina are patent. Minor disc bulge is seen. L2-L3: Mild disc bulge is noted without spinal canal or neural foraminal narrowing. L3-L4: There is mild disc bulge and mild facet joint arthropathy with mild narrowing of the right neural foramen. There is mild to moderate narrowing of the left neural foramen with contact of the exiting left L3 nerve root by disc bulge. The spinal canal is patent. L4-L5: There is broad-based disc bulge eccentric to the right that impresses on the thecal sac and causes right lateral recess narrowing with contact of the traversing right L5 nerve root. Overall there is mild narrowing of the spinal canal. There is severe stenosis of the right neural foramen due to disc bulge extending into the right neural foramen impinging on the exiting right L4 nerve root. There is mild left neural foraminal narrowing. L5-S1: There is a central disc protrusion with annular fissure that abuts the traversing S1 nerve root sleeves. There is mild facet joint arthropathy. There is mild narrowing of the right neural foramen due to disc bulge and facet joint arthropathy. The left neural foramen is patent. Sacrum and iliac wings: The visualized sacrum and iliac wings are within normal limits. Impression: IMPRESSION: 1. Degenerative changes within the lumbar spine are most prominent at L4-L5. 2. At L4-L5 there is right lateral recess narrowing and there is severe stenosis of the right neural foramen with impingement of the exiting right L4 nerve root by disc bulge. 3. L5-S1 there is a disc protrusion with annular fissure that abuts the traversing S1 nerve root sleeves. Anatomic Thoracic/Lumbar Variant: None. L4-5 is considered the level of the iliac crest and assume there are 5 lumbar-type vertebrae. Rippler: PSCB Transcribe Date/Time: Mar 01 2022 11:06A Dictated by : SILVANO LOPEZ MD This examination was interpreted and the report reviewed and electronically signed by: SILVANO LOPEZ MD on Mar 01 2022 11:12AM EST Complete Results Risk Assessment: INOCENCIA-7: INOCENCIA-7 Total Score: 7 (04/14/2022 2:36 PM) (0-4) minimal anxiety, (5-9) mild anxiety, (10-14) moderate anxiety, (15-21) severe anxiety PHQ-9: PHQ-9 Score: 14 (04/14/2022 2:38 PM) (0-4) minimal depression, (5-9) mild depression, (10-14) moderate depression, (15-19) moderately severe depression, (20-27) severe depression Opioid Risk Tool: Family History of Substance Abuse: 0 - No Personal History of Substance Abuse: Yes Alcohol: 3 - Yes Age between 16-45: 0 - No History of Pre-Adolescence Sexual Abuse: 0 - No Psychological Disease: 0 - No Risk Total: 3 ASSESSMENT/PLAN: 1. Spinal stenosis, lumbar region, without neurogenic claudication - ICD9: 724.02, ICD10: M48.061 (primary diagnosis) I have confirmed and edited as necessary, the PFSH and ROS obtained by others. He is clearly extremely uncomfortable. He has a foot drop bilaterally today and states this is the first time that he has noticed this. He feels today is one of his worst days and he had difficulty walking across the parking lot. We reviewed his lumbar MRI that showed a disc protrusion and facet hypertrophy on the right at L5 causing some compression of the exiting nerve root. This would not explain his left foot drop. I was in communication with Dr. Hughes and she was underwhelmed by his lumbar MRI. She believes, and I agree, that in updated lumbar MRI would be of benefit given his rapidly progressive neurological findings of a bilateral foot drop which is new for him. I ordered a stat lumbar MRI I gave him some Percocet 5/325 to take up to 2 times per day as needed. I did write it for 4-day but told him he should not take more than 2/day. He and his voiced understanding. We discussed the risks of using this medication include dizziness, falls, grogginess, constipation and addiction. I am going to order electrodiagnostic testing of the lower extremities to be done as soon as possible. He will see someone in office in 7 to 10 days to see how he is doing. We discussed that if he becomes weaker or has any other neurological issues such as bowel or bladder changes or develops intractable pain, he needs to go right to the emergency room. He voiced understanding. 2. Disturbance of skin sensation - ICD9: 782.0, ICD10: R20.9 - PRE-CERT ORDER (AG) 3. Radiculopathy, lumbosacral region - ICD9: 724.4, ICD10: M54.17 4. Other chronic pain - ICD9: 338.29, ICD10: G89.29 Risk assessment was completed and reviewed. I do not see an indication at this time for a psychiatric/psychologic referral. ORT was fine. Malgorzata Kirkpatrick MD No follow-ups on file. This note was partially generated using [employer] voice recognition system. * Brenda Isidro MA - 04/14/2022 2:33 PM EDT Review of Systems Constitutional: Negative for activity change, chills, fever and unexpected weight change. Gastrointestinal: Negative for bowel retention or incontinence Genitourinary: Positive for difficulty urinating. Negative for bladder retention or incontinence Musculoskeletal: Positive for back pain, gait problem and myalgias. Negative for arthralgias, jointswelling, neck pain and neck stiffness. Neurological: Positive for weakness. Negative for numbness and headaches. Psychiatric/Behavioral: Positive for dysphoric mood and sleep disturbance. Negative for suicidal ideas. The patient is not nervous/anxious. documented in this encounterUniversity Hospitals Geaug[facility] Center07-12-2022 Miscellaneous Notes* Telephone Encounter - Paulina Severino MD - 03/31/2022 3:16 PM EDT The following approved medication requests have been transmitted electronically. Signed Prescriptions Disp Refills traMADol (ULTRAM) 50 mg tablet 40 tablet 0 Sig: Take 1 tablet by mouth every 6 hours as needed for pain. NEO Class: C-IV BALJEET: No Paulina Severino MD documented in this encounterUniversity Hospitals Geaug[facility] Center07-11-2022 History of Present illness Narrative* Landen Milner PA-C - 03/30/2022 3:16 PM EDT NEUROSURGERY FOLLOW UP OFFICE NOTE Landen Milner PA-C Date of visit: March 30, 2022 Patient Name: Mr.John Linus Hathaway Date of : 1950 Current Age: [age] year old Sex: male MRN/E# [id number] Last Office Visit: Visit date not found Chief Complaint: Patient presents with: Established Patient Leg pain SUBJECTIVE: HPI This is a very pleasant 71-year-old gentleman with known history of CAD on Plavix and aspirin, aortoiliac occlusive disease, diabetes, hypertension, hyperlipidemia, CVA and carotid stenosis. He was hospitalized 02/28-03/02/22 for radicular right leg pain. He underwent lumbar spine MRI which showed right-sided L4-5 HNP causing foraminal and lateral recess stenosis. Plavix and aspirin were held and he was eventually discharged and followed up with radiology for an injection after Plavix washout. Heunderwent epidural steroid injection with interventional radiology 03/06/2022 which was performed from the left side. He presents to the office today for follow-up. Patient complains of initial onset of low back and right leg pain in an ill- defined distribution which began suddenly December 29 without inciting event. Back pain was central and right leg pain startedin the buttocks and would travel to the medial aspect of his right thigh and occasionally to the lateral aspect of his right thigh. He was sent to physical therapy but shortly after therapy began experiencing symptoms on the left. He describes pain and burning to his legs bilaterally with minimal activity which resolves with rest. He also feels like his feet feel cold at times. He has a rather extensive vascular history. He underwent epidural steroid injection which gave him no symptomatic improvement whatsoever. He found it extremely difficult to mobilize from our parking lot into our officebecause of severe bilateral leg pain equal in severity. He does not have any leg pain at rest. No change in bowel or bladder function. He denies change in balance/falls. Full strength BLE, legs are warm to touch. No abnormal reflexes. Neg SLR B/L Symptoms: Bilateral leg pain consistent with claudication PREVIOUS CONSERVATIVE TREATMENTS: Physical therapy Tramadol L4-5 epidural steroid injection PREVIOUS SURGERY: No prior history of spine surgery PAIN EVALUATION 03/30/2022 1510 Pain Level: 10 Pain Location: Back-Lower Description: Aching;Sore;Shooting;Numbness;Tingling;Radiating;Sharp Duration Amount of Time: 3 Duration Units: Months Frequency: Continuous PAST MEDICAL HISTORY Diagnosis Date Aortoiliac occlusive disease (HCC) Atherosclerotic heart disease of mentasta coronary artery without angina pectoris Carotid artery occlusion Carotid artery stenosis Cerebrovascular accident (CVA) ([facility]) Coronary arteriosclerosis [place] 1998 Depressive disorder Disc disorder of lumbar region Diverticulitis of colon Diverticulitis of colon Essential tremor Gastroesophageal reflux disease Generalized anxiety disorder Hiatal hernia History of myocardial infarction Hyperlipidemia Hypertension Intervertebral disc disorder of lumbar region with myelopathy Irritable bowel syndrome Myocardial infarction (HCC) Old myocardial infarction Peripheral vascular disease ([facility]) PERS HX COLONIC POLYPS Preoperative testing 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 Sleep apnea SOB (shortness of breath) Thrombosis of right femoral-femoral bypass graft ([facility]) Type 2 diabetes mellitus ([facility]) PAST SURGICAL HISTORY Procedure Laterality Date ANGIOPLASTY 1998, 2004, 2013 CAROTID ENDARTERECTOMY Bilateral right 02/2013, left 08/2001 COLONOSCOPY FLX DX W/COLLJ SPEC WHEN PFRMD 2000 Colonoscopy with polypectomies ESOPHAGOGASTRODUODENOSCOPY TRANSORAL DIAGNOSTIC 2000 EGD reportedly normal EXPLORATION GROIN Left 04/29/2018 Left Groin Exploration, Thrombectomy of Left Limb of Axillo-Bifemoral Bypass, Revision of Left Femoral Anastomosis INSERT INTRACORONARY STENT 1998 RCA LAPAROSCOPY SURG CHOLECYSTECTOMY 1997 Cholecystectomy, lap LEFT HEART CATH,PERCUTANEOUS 1998 Cardiac cath, L heart PAST SURGICAL HISTORY OF Carotid stenosis PAST SURGICAL HISTORY OF Bilateral 12/25/2016 Axillo bifem bypass PAST SURGICAL HISTORY OF ureter removal STENT PLACEMENT 1998 BMS RCA STENT PLACEMENT 11/2013 MARVIN RCA Social History Tobacco Use Smoking status: Former Smoker Types: Cigarettes Quit date: 03/06/1999 Years since quittin.0 Smokeless tobacco: Never Used Tobacco comment: Start date: 1969; Stop date: 1998 Vaping Use Vaping Use: Never used Substance Use Topics Alcohol use: No Comment: abstinent x 6 yrs Drug use: No FAMILY HISTORY Problem Relation Age of Onset Ischemic Heart Disease Father Cancer Father Coronary Artery Disease Father Breast Cancer Mother ALLERGIES Allergen Reactions Atorvastatin Myalgia Levofloxacin Unknown Metformin Diarrhea Rosuvastatin Calcium Other: See Comments Pain,abdomen Current Outpatient Medications Medication Sig Dispense Refill amLODIPine (NORVASC) 5 mg tablet Take 1 tablet by mouth once daily. 90 tablet 3 ramipril (ALTACE) 10 mg capsule Take 1 capsule by mouth once daily. 90 capsule 3 escitalopram oxalate (LEXAPRO) 10 mg tablet Take 1 tablet by mouth once daily. 90 tablet 3 methylPREDNISolone (MEDROL, YONIS,) 4 mg Dose-Pack Follow dosing instructions, take with food. 1 Package 0 traMADol (ULTRAM) 50 mg tablet Take 1 tablet by mouth every 6 hours as needed for pain. 40 tablet 0 clopidogrel (PLAVIX) 75 mg tablet Take 1 tablet by mouth once daily. 90 tablet 3 rivaroxaban (XARELTO) 20 mg tablet Take 1 tablet by mouth daily with dinner. 30 tablet 11 insulin glargine (LANTUS SOLOSTAR U-100 INSULIN) 100 unit/mL (3 mL) Inject 20 Units subcutaneously every morning. 30 mL 3 insulin lispro (HUMALOG KWIKPEN INSULIN) 200 unit/mL (3 mL) injection Inject 46 Units subcutaneously three times daily before meals. Dispense 20 pens for 90 days. DX: E11.42, E11.65, Z79.4 20 Pen 3 insulin NPH (HumuLIN N,NovoLIN N) pen Inject 45 Units subcutaneously daily at bedtime. DX: E11.42, E11.65, Z79.4 45 mL 3 atenolol (TENORMIN) 50 mg tablet Take 1 tablet by mouth once daily. 90 tablet 3 rosuvastatin (CRESTOR) 20 mg tablet Take 1 tablet by mouth once daily. 90 tablet 3 fenofibrate nanocrystallized (TRICOR) 145 mg tablet Take 1 tablet by mouth once daily. 90 tablet 3 TRUE METRIX GLUCOSE TEST STRIP test strip Use to test glucose 4 times daily, as directed. DX: E11.42, E11.65, Z79.4 400 Strip 3 UNIFINE PENTIPS PLUS 32 gauge x 5/32 Use for insulin pen injections 5 times daily, as directed. DX: E11.42, E11.65, Z79.4 500 Each 3 lancets (UNILET SUPER THIN LANCETS) 30 gauge Use to test glucose 4 times daily, as directed. DX: E11.42, E11.65, Z79.4 400 Each 3 valACYclovir (VALTREX) 1 gram Take 1 tablet by mouth three times daily. ACETAMINOPHEN (TYLENOL ORAL) Take 1-2 tablets by mouth every 6 hours as needed. aspirin, enteric coated (ASPIRIN, ENTERIC COATED) 325 mg EC tablet Take 325 mg by mouth once daily. MULTIVIT &MINERALS/FERROUS FUM (MULTI VITAMIN ORAL) Take by mouth once daily. FLAXSEED OIL (OMEGA 3 ORAL) Take 1,000 mg by mouth once daily. gabapentin (NEURONTIN) 400 mg capsule Take 1 capsule by mouth three times daily for 90 days. 90 capsule 2 No current facility-administered medications for this visit. REVIEW OF SYSTEMS Review of Systems Constitutional: Negative for chills, fatigue and fever. Gastrointestinal: Negative for abdominal distention. Musculoskeletal: Positive for back pain. Neurological: Positive for weakness (Activity intolerance d/t B/L leg pain with standing and walking. ). OBJECTIVE: BP 184/62 Pulse 73 Resp 18 Ht 5' 4.5 (1.64m) Wt 174 lb (78.9kg) SpO2 98% BMI 29.42 kg/(m^2). Physical Exam Neurological Exam Mental State : Alert, memory function unremarkable. Attention span and concentration Normal for patient's age. Recent and remote memory normal Orientation : Oriented to time place and person Higher Cortical Function : Intact speech and language. Spontaneous speech and comprehension normal.Fund of knowledge intact for pt level of education. Cranial Nerves : II: No visual field cut no blurring. Makes and sustains eye contact III, IV, normal, no double vision or drooping. Pupils equal and reactive to light. Extraocular muscles intact. No nystagmus V Normal sensation on the face, normal jaw movements VII No paresis on either side. VIII No gross hearing deficit IX Normal palatal movements XI Good and equal shoulder shrus XII Tongue midline, no fasciculation Sensory : Normal Sensation in upper and lower extremities and trunk to touch and Noxious stimuli. Motor : Normal muscle tone and bulk. No tremor or uncontrollable movements No spasticity . Strength: Upper Extremities : R L Deltoid 5 5 Biceps 5 5 Triceps 5 5 Wrist Ext 5 5 Wrist Flx 5 5 Hand Int. 5 5 Lower Extremities : Hip Flexors 5 5 Hip Extensors 5 5 Hip Abductors 5 5 Hip Adductors 5 5 Quads 5 5 Hamstrings 5 5 Ankle dorsiflex 5 5 Ankle plantars 5 5 Reflexes : Biceps 2 2 Triceps 2 2 Wrist 2 2 Patellar 2 2 Achilles 1 1 Tello's Neg Neg Plantars Neg Neg Cerebellar Function : Normal finger to nose and rapid alternating movements. No ataxia Gait and Station: Normal Data Review IMAGING STUDIES: MRI of the lumbar spine without contrast from March 01, 2022 shows small right L4-5 HNP causing both foraminal and lateral recess stenosis. No severe central canal stenosis throughout his entire lumbar spine imaging. Personal review of medical records: I reviewed with the patient, history, physical exam, the imagesand the chart. ASSESSMENT/PLAN: 1. Acute midline low back pain, unspecified whether sciatica present - ICD9: 724.2, ICD10: M54.50 - CONSULT TO PAIN MGT This is a 71-year-old gentleman who comes in with acute onset low back and right leg pain December 29.His right leg symptoms seem to have settled down quite a bit but he still having low back pain. Hismain issue in the office today is bilateral leg pain equal in severity and symptoms consistent withclaudication. He has a rather extensive vascular history and has an appointment to see his vascularsurgeon April 16. His symptoms do seem to be progressively worsened. Epidural steroid injection did not offer him any symptomatic improvement whatsoever. I am concerned that his symptoms are vascular in nature. His lumbar spine MRI does not show any changes that would explain his current symptoms. Th ere is no severe central canal stenosis at all. I have recommended that he speak with his vascular surgeon to see if he can get into see them a little sooner. I have given him a referral to pain management for his low back pain. I have discussed case with Dr. Hughes and reviewed his imaging at length. He has no acute surgical needs at this time. He will follow-up with us on an as- needed basis. Landen Milner PA-C documented in this encounterUniversity Hospitals [facility]07-08-2022 History of Present illness Narrative* Paulina Severino MD - 03/27/2022 3:20 PM EDT CHIEF COMPLAINT Patient presents with: Follow Up back pain HISTORY OF PRESENT ILLNESS Shilo Hathaway is a 71 year old male who presents here today for follow up management of multiple medical issues. I last saw this patient on 03/13/22. Back Pain Patient is managed on tramadol 50 mg He still has a hard time walking. Patient is feeling better since his last visit. Patient has a follow up with the back doctor Health Maintenance Due for Pneumovax. Due for depression screening. Due for one time hepatitis C screening. Due for TDAP. Due for routine colon cancer screening. Due for Shingrix series Due for advance directive discussion. Due for dilated retinal exam. Due for urine albumin Due for routine labs. Labs reviewed. Past medical history, appointments, medications, allergies reviewed. REVIEW OF SYSTEMS Pertinent positives/ negatives: General: Feels well, no fever, no chills. HEENT: No sinus congestion, earache, sore throat. Cardiac: No chest pain, palpitations Resp: No cough, wheeze, shortness of breath GI: No reflux symptoms, food intolerance, bowel changes. : No urinary frequency, dysuria. 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 Carotid artery occlusion Carotid artery stenosis Cerebrovascular accident (CVA) (HCC) Coronary arteriosclerosis [place] 1998 Depressive disorder Disc disorder of lumbar region Diverticulitis of colon Diverticulitis of colon Essential tremor Gastroesophageal reflux disease Generalized anxiety disorder Hiatal hernia History of myocardial infarction Hyperlipidemia Hypertension Intervertebral disc disorder of lumbar region with myelopathy Irritable bowel syndrome Myocardial infarction (HCC) Old myocardial infarction Peripheral vascular disease (HCC) PERS HX COLONIC POLYPS Preoperative testing 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 Heart: Regular rate and rhythm. Normal S1 and S2. No murmurs, rubs, or gallops. Lungs: Clear to auscultation bilaterally. No respiratory distress. No wheezes, rales, or rhonchi. Abdomen: Soft, non-tender, no distention. Extremities: Feet/ankles without edema, posterior tibial pulses full and symmetrical. Assessment/Plan (M54.41) Acute right-sided low back pain with right-sided sciatica (primary encounter diagnosis) Comment: pain improving Plan: continue to follow spine doctor Signed Prescriptions Disp Refills amLODIPine (NORVASC) 5 mg tablet 90 tablet 3 Sig: Take 1 tablet by mouth once daily. BALJEET: No ramipril (ALTACE) 10 mg capsule 90 capsule 3 Sig: Take 1 capsule by mouth once daily. BALJEET: No escitalopram oxalate (LEXAPRO) 10 mg tablet 90 tablet 3 Sig: Take 1 tablet by mouth once daily. BALJEET: No RTO: 6 months Scribe Attestation: By signing my name below, I, Abbey Ozuna, attest that this documentation has been prepared under the direction and in the presence of Manpreet Severino M.D. Electronically Signed: Neftali Saha. March 27, 2022 12:53 PM Provider Attestation: IPaulina MD, personally performed the services described in this documentation. All medical record entries made by the scribe were at my direction and in my presence. I have reviewed the chart and discharge instructions (if applicable) and agree that the record reflects my personal performance and is accurate and complete. Electronically Signed: Paulina Severino MD. March 31, 2022 3:19 PM documented in this encounterUniversity Hospitals [facility]aug[facility]07-06-2022 Miscellaneous Notes* Telephone Encounter - Halley Morris - 03/25/2022 9:09 AM EDT Patient called at the same time prescription was sent to pharmacy. Please disregard request. I will contact patient and update. * Telephone Encounter - Halley Morris - 03/25/2022 9:06 AM EDT Patient has been identified by name and date of : Yes Pending Prescriptions Disp Refills TRAMADOL 50 MG TABLET 40 tablet 0 Sig: Take 1 tablet by mouth every 6 hours as needed for pain. NEO Class: C-IV BALJEET: No Also prednisone RX INSTRUCTIONS: Patient aware RX will be sent to pharmacy. No need to notify patient. Halley Morris documented in this encounterUniversity Hospitals [facility]07-05-2022 Miscellaneous Notes* Telephone Encounter - Landen Clement MD - 03/24/2022 3:01 PM EDT Reviewed. * Telephone Encounter - Tracy Lynn Ma - 03/24/2022 2:26 PM EDT Blood sugar readings on docs desk for review. Please advise, thanks. documented in this [facility]07-05-2022 Miscellaneous Notes* Telephone Encounter - Marci Mckeon Ma - 03/24/2022 2:40 PM EDT Duplicate documented in this [facility]07-05-2022 Miscellaneous Notes* Telephone Encounter - Marci Mckeon Ma - 03/24/2022 2:39 PM EDT duplicate documented in this [facility]06-28-2022 Miscellaneous Notes* Telephone Encounter - Davin August PA-C - 03/17/2022 8:52 PM EDT Reviewed 03/01/22 lumbar MRI. pateint underwent L4-5 IL JAZMINE at [facility] and reports very little improvement from that procedure. Complains of bilat LE pain to PCP. D/W PCP the idea of trying a transforaminal approach due to the lateral placement of the L4-5 HNP. Order placed for that injection. He may have it done at first available to see if he can get it done before his 04/06/22 neurosurgeryvisit. Davin August PA-C documented in this [facility]06-24-2022 History of Present illness Narrative* Paulina Severino MD - 03/13/2022 11:00 AM EDT Initial contact with patient post discharge, spoke to dereck Collado RN . Patient identified by name and . SUMMARY: -Pt discharged from [facility] on 03/02/22. -Follow up appointment on 03/13/22. -Admitted for: Spinal stenosis BRIEF HOSPITAL COURSE: You were admitted for back pain. Shilo Hathaway, you presented to the emergency department with complaints of sciatic pain. It was decided you warranted further evaluation in which you were admitted to the rapid observation unit for further work-up and evaluation. During your admission we obtained additional blood tests, continuously monitored your heart and vital signs. You had a CT which showed the following: Large right-sided disc bulge at L4-5 which flattens the thecal sac and causes severe stenosis of the right lateral recess and neural foramen. Small central disc protrusion at L5-S1 which appears to efface the left S1 nerve root. You also had MRI which showed degenerative changes, narrowing. You were seen by neurosurgery and they recommended a spinal injection to help with pain. You will be able to receive this on Wednesday, March 05, 2022. The interventional radiology department will set this up and contact you with the time MEDS HELD/DISCONTINUED: Please do not take your aspirin, Plavix or Xarelto until the next day after your spine injection. The patients TCM visit was performed within the 14 days of discharge. Patient's Date of discharge: 03/02/22 Date of initial coordinator contact after discharge: 03/03/22 Discharge diagnosis: Spinal Stenosis Medication review completed Yes Manpreet Severino M.D. Provider Documentation: HPI In follow-up of hospitalization, Shilo Hathaway is a 71 year old male with the chief complaint of backpain Back Pain Patient says that the pain originally started in the left and moved , bilat now. He had a nerve block on the but he says it has not helped at all with his pain. Patient has been taking Tramadol for the pain that he had from old Rx. He inquires about increasing gabapentin dos.e I have reviewed the patient s last hospital course including diagnostic testing performed during this hospitalization, their discharge medications, and my assessment and plan with the patient and anyfamily members present at today s visit. HISTORY REVIEWED (electronic chart updated): Meds reviewed. Recent procedure reviewed since hosp stay REVIEW OF SYSTEMS: General: Feels well, no weight changes, fever, chills. HEENT: No resp symptoms. Cardiac: No chest pain, palpitations Resp: No cough, wheeze, shortness of breath GI: No reflux symptoms, food intolerance, bowel changes. : No urinary frequency, dysuria. MS: +back pain, radiation PHYSICAL EXAMINATION: 03/13/22 1106 BP: 155/56 Pulse: 102 Weight: 79.1 kg (174 lb 6.4 oz) Height: 163.8 cm (5' 4.49) Heart: Regular rate and rhythm. Normal S1 and S2. No murmurs, rubs, or gallops. Lungs: Clear to auscultation bilaterally. No respiratory distress. No wheezes, rales, or rhonchi. Abdomen: Soft, non-tender, no distention Extremities: Feet/ankles without edema, posterior tibial pulses full and symmetrical Data Reviewed: Glucose- Component Ref Range & Units 11 d ago (03/02/22) 11 d ago (03/02/22) 12 d ago (03/01/22) 12 d ago (03/01/22) 12 d ago (03/01/22) 12 d ago (03/01/22) 12 d ago (03/01/22) Glucose, Point of Care 74 - 99 mg/dL 98 184 Abnormal CM 221 Abnormal CM 88 CM 58 Abnormal CM 100 Abnormal CM 247 Abnormal COVID- negative APTT- within normal limits Prothrombin- within normal limits BMP- sodium (135 low) glucose (177 high) CBC+DIFF- within normal limits 1. I have reviewed the patient record including associated test results during the last hospitalization Yes 2. I have reviewed Lab tests Yes 3. I have reviewed Radiology tests Yes 4. I have reviewed Assessment/Plan with patient/family member Yes Manpreet Severino M.D. ASSESSMENT/PLAN: (M51.36) DDD (degenerative disc disease), lumbar (primary encounter diagnosis) (E11.40, Z79.4) Type 2 diabetes mellitus with diabetic neuropathy, with long- term current use of insulin (HCC) (Z79.01) Chronic anticoagulation (M48.061) Lumbar foraminal stenosis (M54.31) Right sided sciatica (Z09) Hospital discharge follow-up Comment: patient had a nerve block and is not feeling relief Plan: traMADol (ULTRAM) 50 mg tablet Signed Prescriptions Disp Refills traMADol (ULTRAM) 50 mg tablet 40 tablet 0 Sig: Take 1 tablet by mouth every 6 hours as needed for pain. NEO Class: C-IV RTO: 3 months Scribe Attestation: By signing my name below, IAbbey, attest that this documentation has been prepared under the direction and in the presence of Manpreet Severino M.D.. Electronically Signed: Neftali Saha. March 13, 2022 8:30 AM. This telehealth encounter is provided under a state of emergency due to COVID19 and is for care forcondition where providing the care is supportive of minimizing potential exposure and/or transmission of COVID19. Provider Attestation: Paulina Farmer MD, personally performed the services described in this documentation. All medical record entries made by the scribe were at my direction and in my presence. I have reviewed the chart and discharge instructions (if applicable) and agree that the record reflects my personal performance and is accurate and complete. Electronically Signed: Paulina Severino MD. March 13, 2022 2:50 PM documented in this encounterUniversity Hospitals [facility]06-15-2022 History of Present illness Narrative* Dereck Cook - 03/04/2022 3:12 PM EDT POPULATION HEALTH NAVIGATION OUTREACH Action/FYI Spoke to patient and hospital follow up scheduled. Pt identified by name and : YES, via phone Outreach Outcome/Action Spoke to patient or caregiver: Patient scheduled Did you use a PCP flex slot to schedule this appointment? No Reason for Outreach Community Monitoring Pool Payer: Payor: [facility] [employer]ARE / Plan: [employer] [facility] MED[employer] HMO / Product Type: HMO / Care Gap Reviewed:: Follow-up appointment Reminder: Reminder note to check Health Maintenance for items below Health Maintenance items due: PNEUMOCOCCAL: 66+(1 - PCV) Never done DEPRESSION SCREENING Never done HEPATITIS C SCREENING Never done BP CONTROLLED (<130/80) Never done DTAP,TDAP,TD(1 - Tdap) Never done COLORECTAL CANCER SCREENING Never done SHINGRIX VACCINE(1 of 2) Never done ADVANCE DIRECTIVE DISCUSSION Never done DILATED RETINAL EXAM due on 12/11/2021 Message Sent to Practice: No Navigation Signature: Dereck Cook March 04, 2022 3:12 PM * Dereck Collado RN - 03/04/2022 11:46 AM EDT TRANSITIONAL CARE MANAGEMENT (TCM) COMMUNITY MONITORING PROGRAM Provider Action/FYI: TCM [facility] discharge 03-02-22- second attempt - Left voice message on mobile and home. Chart review shows lumbar epidural block currently 03-06-22 Cardiac,Thoracic and Vasc appointment 04-16-22 PSS: to have follow up appointment with PCP in 2 weeks. SUMMARY: Pt discharged from on 03-02-22. Admitted for: back pain COPIED AND PASTED FROM DISCHARGE SUMMARY SUMMARY OF WHAT HAPPENED WHILE I WAS IN THE HOSPITAL: Patient was admitted for back pain. astrid Dunn presented to the emergency department with complaints of sciatic pain. It was decided you warranted further evaluation in which you were admitted to the rapid observation unit for further work-up and evaluation. During your admission we obtained additional blood tests, continuously monitored your heart and vital signs. You had a CT which showed the following: Large right-sided disc bulge at L4-5 which flattens the thecal sac and causes severe stenosis of the right lateral recess and neural foramen. Small central disc protrusion at L5-S1 which appears to efface the left S1 nerve root. You also had MRI which showed degenerative changes, narrowing. You were seen by neurosurgery and they recommended a spinal injection to help with pain. You will be able to receive this on Saturday, March 05, 2022. The interventional radiology department will set this up and contact you with the time. At this time, we feel it is safe for you to return home. DISCHARGE HOME GOING PLAN: -Encourage daily physical activity 3-4 days per week, 30 minutes per day -Encourage a diet that is low in salt, fat and cholesterol -Continue current medication regimen as prescribed by your PCP -1-2 week PCP follow-up to discuss recent admission and ensure you continue to improve RETURN TO THE EMERGENCY DEPARTMENT WITH WORSENING SYMPTOMS OR NEW CONCERNS Contact made with patient: No - 2nd unsuccessful attempt - end outreach and close encounter Attempted outreach to patient for hospital discharge initial outreach second attempt. No answer. Left a voicemail to return my call at [phone]. Encouraged patient to schedule a follow up appointment with PCP by calling the appointment center at [phone]. Thank you Outreach ended Dereck Collado RN, BSN Care Coordination team * Dereck Collado RN - 03/03/2022 1:34 PM EDT TCM Home Visit Referral Source of Stratification: [facility] Admission Status: Discharged Readmission Risk Score: 16 KATHARINE Score: 2 Program referral criteria met: Does not meet referral criteria Patient does not qualify for High Risk TCM Home Visit program due to: Does not meet referral criteria Patient does not quality for High Risk TCM Home Visit Program due to: Does not meet referral criteria Preferred contact number: N/A Is patient staying somewhere other than the listed home address: No Dialysis Patient: No Dereck Collado RN, BSN Care Coordination team TRANSITIONAL CARE MANAGEMENT (TCM) COMMUNITY MONITORING PROGRAM Provider Action/FYI: TCM [facility] discharge 03-02-22- initial outreach - Left voice message on mobile and home SUMMARY: Pt discharged from on 03-02-22. Admitted for: back pain COPIED AND PASTED FROM DISCHARGE SUMMARY SUMMARY OF WHAT HAPPENED WHILE I WAS IN THE HOSPITAL: Patient was admitted for back pain. Shilo Hathaway, you presented to the emergency department with complaints of sciatic pain. It was decided you warranted further evaluation in which you were admitted to the rapid observation unit for further work-up and evaluation. During your admission we obtained additional blood tests, continuously monitored your heart and vital signs. You had a CT which showed the following: Large right-sided disc bulge at L4-5 which flattens the thecal sac and causes severe stenosis of the right lateral recess and neural foramen. Small central disc protrusion at L5-S1 which appears to efface the left S1 nerve root. You also had MRI which showed degenerative changes, narrowing. You were seen by neurosurgery and they recommended a spinal injection to help with pain. You will be able to receive this on Wednesday, March 05, 2022. The interventional radiology department will set this up and contact you with the time. At this time, we feel it is safe for you to return home. DISCHARGE HOME GOING PLAN: -Encourage daily physical activity 3-4 days per week, 30 minutes per day -Encourage a diet that is low in salt, fat and cholesterol -Continue current medication regimen as prescribed by your PCP -1-2 week PCP follow-up to discuss recent admission and ensure you continue to improve RETURN TO THE EMERGENCY DEPARTMENT WITH WORSENING SYMPTOMS OR NEW CONCERNS Contact made with patient: No - next outreach attempt will be on next business day Attempted outreach to patient for hospital discharge initial outreach first attempt. No answer. Left a voicemail to return my call at [phone]. Will attempt to outreach to patient again later today or on next business day 03-04-22 if no return call from patient. Thank you. Outreach ended Dereck Collado RN, BSN Care Coordination team documented in this encounterUniversity Hospitals [facility]aug[facility]06-03-2022 Miscellaneous Notes* Telephone Encounter - Archana Child - 02/20/2022 3:50 PM EDT Called patient to schedule MRI. LVM for patient to call back and schedule. * Telephone Encounter - Davin August PA-C - 02/20/2022 2:34 PM EDT Lumbar MRI is ordered. Patient may call to schedule it and have it done at his convenience. I will plan to review it after I return to the office on March 04. Davin August PA-C * Telephone Encounter - Archana Child - 02/20/2022 12:38 PM EDT Patient called to give different phone numbers to call him back on other than what number his gave to the nurse as they are now traveling due to a in the family. 's cell - [phone] [facility] [phone] * Telephone Encounter - Nancy Elizabeth RN - 02/20/2022 12:32 PM EDT Mrs Galeano calling [phone] Pt has been doing the PT and had signed up for more but has cancelled them as he is in a lot pain Per last [employer] message, pt was to do one more session and make a follow up appt Pt has not done that as he wants something done now and not later Please advise documented in this encounterUniversity Hospitals Geauga [facility] Center05-27-2022 History of Present illness Narrative* Thierry Stokes, PT - 02/13/2022 10:13 AM EDT Images from the original note were not included. Episode Visit Count: 6 Therapist That Will Oversee The Plan Of Care: Soham Blancas Start of Care Date: 01/16/22 Onset Date: 01/01/22 Plan of Care Certification Date: 01/16/22 Next Certification Due Date: 03/18/22 REHABILITATION AND SPORTS THERAPY PHYSICAL THERAPY PROGRESS REPORT PLAN OF CARE UPDATE: Assessment: Shilo Hathaway demonstrates improvements in trunk mobility. He hasprogressed toward goals.Patient continues to present with impairments in balance, flexibility, gait, overall function, range of motion, strength and tissue tenderness that interfere with walking;physical activities . Current prognosis is Good due to: current objective clinical presentation . Patient limited with 6 minute walk test due to increasing RIGHT lower extremity pain. As patient fatigued he had an increase in lateral sway which may be contributing to his RIGHT lower extremity pain. He will benefit from continued skilled therapy services to meet the updated goals for this plan of care as noted below. Goals for Episode of Care: created on 01/16/22 through 03/18/22 Patient will demonstrate pain free trunk AROM in all planes (progressing toward goal) -patient will improve R posterior chain extensibility per passive SLR to >60 (Not Met) -Patient will improve B/L SLS to >5 seconds (Not Met) -patient will have no difficulty/sxs walking 1000 feet in order to improve tolerance for yard work (Not Met) [place] in home exercise program. (progressing toward goal) Patient will decrease pain rating by 2 points to meet minimal clinical important difference for numeric pain rating scale. (Not Met) Patient Goals: decrease pain, improve tolerance for upright physical Activity (Not Met) Planned Interventions, Frequency, and Duration: 1x/week, 4 weeks Total Number of Visits Planned: 4 Patient to be seen for Therapeutic exercise (11914);Manual therapy (58997);Therapeutic activities (38723);Gait Training ([id number]);Patient/Family/Caregiver Education;Functional training;General Condition ing PLAN FOR NEXT VISIT: continue with LE strength and flexibility SUBJECTIVE: Patient Reason for Visit: Pt notes that pain continues to vary each day and with activity. Pt notes walking down in his driveway (about 200 feet) he has pain afterwards that lasted until he was able to lay on his L side on the floor. Pt also notes increased back pain with sitting. Pt notes that he got cramping in his legs last night. Pt notes that his feet are normally cold due to vascular issues.. Functional Limitations: walking;physical activities Pain: Pain Pain Level: 0 Post Treatment Pain Post Treatment Pain Level: 6 Post Treatment Pain Location: Groin - Right;Leg - Right Post Treatment Symptoms: increased with walking activities PROMIS Scales T-scores: mean of general population = 50. 5 points is clinically meaningfully difference Percentiles provide an indication of how the patient's score ranks in relation to the general population. Higher percentile rankings indicate better function/quality of life. 50th percentile is the average of the general population and indicates half of respondents had a worse score. T-scores: mean of general population = 50. 5 points is clinically meaningfully difference Percentiles provide an indication of how the patient's score ranks in relation to the general population. Higher percentile rankings indicate better function/quality of life. 50th percentile is the average of the general population and indicates half of respondents had a worse score. OBJECTIVE MEASURES WITH LEVEL OF FUNCTION: Posture / Alignment Leg Length Discrepency: negative Spine Observations L Lumbar Spine Palpation Tenderness: Gluteals;Quadratus Lumborum Lumbar Spine AROM Lumbar Flexion: Moderate limitation (mid tibia noted tightness in hamstring) Lumbar Extension: Normal (notes increase in R LE pain) Lumbar R Side-Bend: Moderate limitation (notes R LE pain at knee) Lumbar L Side-Bend: Moderate limitation LE Flexibility Flexibility: Quadriceps Flexibility R SLR Flexibility: restricted L SLR Flexibility: restricted R Quadriceps Flexibility: WNL L Quadriceps Flexibility: WNL LE Strength R Hip Extension: 5/5 R Hip Flexion (L2): 5/5 R Hip ABduction: 4/5 R Hip ADduction: 5/5 R Knee Extension (L3): 5/5 R Knee Flexion: 5/5 R Ankle Dorsiflexion (L4): 5/5 R Ankle Plantar Flexion: 5/5 L Hip Extension: 5/5 L Hip Flexion (L2): 5/5 L Hip ABduction: 4/5 L Hip ADduction: 5/5 L Knee Extension (L3): 5/5 L Knee Flexion: 5/5 L Ankle Dorsiflexion (L4): 5/5 L Ankle Plantar Flexion: 5/5 Balance Single Leg Stance: R/L balance < 2 seconds Functional Performance Test Results 6 Minute Walk Test (ft): 640 ft (stopped at 3:18 due to R LE pain that radiates to his calf 5/10 ptwith noted R lateral sway with ambulation) 6 Minute Walk Test Gait Speed (calculated): 0.54 m/s TREATMENT: Therapeutic Exercise: 1: recheck as above 2: *R/L sidelying hip abd and clam shell 10x 3: 6 minute walk test Skilled Intervention: Patient was educated in proper exercise technique and purpose for exercises. Reviewed and educated patient on additions/changes for home exercise program as above (*). Skilled judgment was provided in selection of appropriate interventions. Provided written instruction for home exercise program to facilitate proper performance and compliance. Correct performance of therapeutic exercises was facilitated with verbal cuing. Attempted ambulation with walking stick to improve gait mechanics Thierry Stokes PT documented in this encounterUniversity [facility]als [facility]05-19-[facility]22 History of Present illness Narrative* Sandra Alba, PROPERTY UNDERWRITER - 02/05/2022 12:18 PM EDT Episode Visit Count: 5 Therapist That Will Oversee The Plan Of Care: Soham Blancas Start of Care Date: 01/16/22 Onset Date: 01/01/22 Plan of Care Certification Date: 01/16/22 Next Certification Due Date: 03/18/22 Patient Identified by Name and Date of : Yes REHABILITATION AND SPORTS THERAPY PHYSICAL THERAPY TREATMENT NOTE ASSESSMENT: Shilo Hathaway tolerated the session with no issues. Added lateral side bending and hip shifts to open gap right lumbar region. Difficult to assess benefit due to no pain presently. The patient will continue to benefit from ongoing skilled physical therapy to progress toward set goals. PLAN FOR NEXT VISIT: Assess benefit of positioning SUBJECTIVE: Patient Reason for Visit: Patient reports I am not getting ahead of this yet. Difficulty with lifting right leg after walking a long walk. I leave here feeling good. Then by the time I get to my car , I have pain in my right hip and leg. Patient voices frustration that he doesn't have pain when he comes into therapy and tries to elicit pain before he gets here. Pain: Pain Pain Level: 0 Post Treatment Pain Post Treatment Pain Level: No Change OBJECTIVE MEASURES WITH LEVEL OF FUNCTION: Right hamstring tightness TREATMENT: Therapeutic Exercise: 1: R SKTC 5 x 5 seconds 2: R sciatic glide 10 x 5 seconds 3: R piriformis stretch 3 x 20 seconds 4: R hamstring stretch 3 x 20 seconds 5: *Lateral side bending to left to open gap x 10 6: *Hip shift with hips to right x 10 7: Pt education regarding anatomy of spine 8: Pt education regarding assessing effectiveness with side bending and instruction to stop exercise if pain levels decrease Skilled Intervention: Patient was educated in proper exercise technique and purpose for exercises. Reviewed and educated patient on additions/changes for home exercise program as above (*). Skilled judgment was provided in selection of appropriate interventions. Provided written instruction for home exercise program to facilitate proper performance and compliance. Correct performance of therapeutic exercises was facilitated with verbal and visual cuing. Billing Therapeutic Exercise Treatment Minutes: 40 Total Treatment Time Minutes (timed/untimed): 43 Sandra Alba PTA documented in this encounterUniversity Hospitals [facility]05-11-2022 History of Present illness Narrative* Ronna Oro PTA - 01/28/2022 12:57 PM EDT Images from the original note were not included. Episode Visit Count: 4 Therapist That Will Oversee The Plan Of Care: Soham Blancas Start of Care Date: 01/16/22 Onset Date: 01/01/22 Plan of Care Certification Date: 01/16/22 Next Certification Due Date: 03/18/22 Patient Identified by Name and Date of : Yes REHABILITATION AND SPORTS THERAPY PHYSICAL THERAPY TREATMENT NOTE ASSESSMENT: Shilo Hathaway tolerated the session with improved endurance and right knee extension, completed 5 minutes on nustep, improved from last visit. Lumbar sore with knee to chest. Noted weaknessmid trapezius, added strengthening to HEP. The patient will continue to benefit from ongoing skilled physical therapy to progress toward set goals. PLAN FOR NEXT VISIT: continue lumbar mobility, hip flexibility, postural strength, re visit manual if needed SUBJECTIVE: Patient Reason for Visit: Pt reports no increase pain after last vist. Still get right lumbar and groin pain. Pt mowed on tractor for 2 days. Pain: Pain Pain Level: 2 Pain Location: Groin - Right Description: Sore Frequency: Continuous Additional Pain Information : Location 2 Pain Level 2: 2 Pain Location 2: Low Back/Lumbar Spine - Right Description 2: Aching Frequency 2: Intermittent Post Treatment Pain Post Treatment Pain Level: No Change Post Treatment Pain Location: Groin - Right Post Treatment Pain Score 2: 0/10 Post Treatment Pain Location 2: Low Back/Lumbar Spine - Right OBJECTIVE MEASURES WITH LEVEL OF FUNCTION: Postural weakness TREATMENT: Therapeutic Exercise: 3: *B shoulder ER red tband x 15 4: *rows green tband x 15 5: Nustep seat 9, L4 x 5minutes 6: piriformis stretch 3 x 15 seconds B 7: bridge 5 sec hold x 10 9: seated hamstring stretch with belt 2 x 30 sec hold 10: physioball lateral rotation x 15 11: physioball knees to chest x 15 Skilled Intervention: Patient was educated in proper exercise technique and purpose for exercises. Skilled judgment was provided in selection of appropriate interventions. Correct performance of therapeutic exercises was facilitated with verbal, visual and tactile cuing. Billing Therapeutic Exercise Treatment Minutes: 38 Total Treatment Time Minutes (timed/untimed): 40 Ronna Oro PTA documented in this encounterUniversity Hospitals [facility]05-03-2022 History of Present illness Narrative* Loan Hennessy PT, DPT - 01/20/2022 9:52 AM EDT Episode Visit Count: 2 Therapist That Will Oversee The Plan Of Care: Soham Blancas Start of Care Date: 01/16/22 Onset Date: 01/01/22 Plan of Care Certification Date: 01/16/22 Next Certification Due Date: 03/18/22 Patient Identified by Name and Date of : Yes REHABILITATION AND SPORTS THERAPY PHYSICAL THERAPY TREATMENT NOTE ASSESSMENT: Shilo Hathaway tolerated the session with no issues. He demonstrated difficulty with rightleg AAROM. No complains or cramping with nu step today. Pt reported less pain after manual work today. The patient will continue to benefit from ongoing skilled physical therapy to progress toward set goals. PLAN FOR NEXT VISIT: continute flexibility and manual work SUBJECTIVE: Patient Reason for Visit: Pt reports no pain this morning coming up today. Pain: Pain Pain Level: 2 Pain Location: Leg - Right Description: Aching Frequency: Continuous Post Treatment Pain Post Treatment Pain Level: 0 OBJECTIVE MEASURES WITH LEVEL OF FUNCTION: Posture / Alignment Posture: Forward head;Increased thoracic kyphosis;Decreased lumbar lordosis TREATMENT: Therapeutic Exercise: 1: SKTC, 3 sec hold x 10, R 2: sciatic nerve flossing, 3 sec hold x 15 5: nu step x 5 minutes level 3, seat 10 for increased cardio and neuropriming 6: *piriformis stretch 3 x 15 seconds B 7: *HLTR x 20 Skilled Intervention: Patient was educated in proper exercise technique and purpose for exercises. Skilled judgment was provided in selection of appropriate interventions. Provided written instruction for home exercise program to facilitate proper performance and compliance. Correct performance of therapeutic exercises was facilitated with verbal and visual cuing. Manual Therapy: 1: STM to right side lumbar spine and glut Skilled Intervention: Manual skills to improve joint mobility, ROM, and decrease pain. Utilized anatomy knowledge of the therapist, and assessment of patient's response to intervention. Billing Therapeutic Exercise Treatment Minutes: 25 Manual TherapyTreatment Minutes: 10 Total Treatment Time Minutes (timed/untimed): 40 Loan Hennessy PT DPT documented in this encounterUniversity Hospitals [facility]05-02-2022 Miscellaneous Notes* Telephone Encounter - Love Robertson - 01/19/2022 1:39 PM EDT Shilo is wondering if Dr. Severino can send in refills for his medications and do them for a three month supply? He would like to start doing three month orders through [facility] of the mail to home. This will save Shilo some money. Shilo just filled a lot of his medications from [facility] from his old primary care provider, but is wanting to have Dr. Severino prescribe the refills and take over, and wants to have him send in the three months home delivery if possible. Love Robertson documented in this encounterUniversity Hospitals [facility]04-29-2022 History of Present illness Narrative* Soham Blancas, PT, DPT - 01/16/2022 10:39 AM EDT Episode Visit Count: 1 Therapist That Will Oversee The Plan Of Care: Soham Blancas Start of Care Date: 01/16/22 Onset Date: 01/01/22 Plan of Care Certification Date: 01/16/22 Next Certification Due Date: 03/18/22 Patient Identified by Name and Date of : Yes REHABILITATION AND SPORTS THERAPY PHYSICAL THERAPY EVALUATION PLAN OF CARE: Assessment: Shilo Hathaway presents with acute R sided low back and R LE pain. Pt's sxs are consistentwith R lumbar radiculopathy secondary to lateral stenosis. Pt's sxs are reproduced with R quadrant movement and general upright physical activity. Pt's primary impairments include decreased trunk mobility, decreased LE extensibility, decreased hip mobility, postural deficits, and dysfunctional movement patterns. As a result of pain/sxs, pt has decreased tolerance for walking, stairs, and household/yard activities. Based on history , examination(lumbar, mobility, ADls), presentation and clinicalreasoning pt is appropriate for low complexity evaluation. Pt will benefit from skilled physical therapy to address impairments, postural re-ed, dynamic core stabilization, manual therapy techniques and functional training to decrease pain/sxs to minimize functional limitations. Prognosis for therapy is Good due to: current objective clinical presentation . Goals for Episode of Care: created on 01/16/22 through 03/18/22 Patient will demonstrate pain free trunk AROM in all planes -patient will improve R posterior chain extensibility per passive SLR to >60 -Patient will improve B/L SLS to >5 seconds -patient will have no difficulty/sxs walking 1000 feet in order to improve tolerance for yard work [place] in home exercise program. Patient will decrease pain rating by 2 points to meet minimal clinical important difference for numeric pain rating scale. Patient Goals: decrease pain, improve tolerance for upright physical activity Planned Interventions, Frequency, and Duration: Current Frequency: 1x/week (1-2 visits per week) Duration: 8 weeks Total Number of Visits Planned: 10 Planned Treatment Interventions: Therapeutic exercise (69138);Neuromuscular re- education (39312);Manual therapy (90212);Therapeutic activities (90038);Self- assisted management (93829);Gait Training (35617);Patient/Family/Caregiver Education Patient demonstrates good understanding of plan of care and treatment. The above goals and plan of care were discussed and agreed upon by patient/family. SUBJECTIVE: Shilo Hathaway is a 71 year old male seen today for acute R sided back/R LE pain which started ~ 2 months ago. pt denies any specific incident or exacerbating factor. Pt has had these sxs intermittently but never requried formal intervention because it went away. Pt's sxs start to R SI/butock region, R hip, anterior thigh, and to ankle. 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 Pt hasrerouted blood flow secondary to calcific aorta. Pt does not a previous history of pain to legs secondary to circulation issues but feels like this pain is different. Pt denies any weakness to eitherLE. Pt denies any numbness/tingling other than numbness to B/L feet secondary to DM/neuropathy. Pt is limited to ~ 200 feet walking due to increased pain. Pt had x-ray of lumbar spine which revealed degenerative changes and mild hip OA. Of not moderate narrowing at L5-S1. Pt's baseline is limited due to endurance deficits secondary to cardiac issues. Pt does perform yard work and upkeep. PAST MEDICAL HISTORY Diagnosis Date Aortoiliac occlusive disease (HCC) Atherosclerotic heart disease of [place] coronary artery without angina pectoris Carotid artery occlusion Carotid artery stenosis Cerebrovascular accident (CVA) (HCC) Coronary arteriosclerosis [place] 1998 Depressive disorder Disc disorder of lumbar region Diverticulitis of colon Diverticulitis of colon Essential tremor Gastroesophageal reflux disease Generalized anxiety disorder Hiatal hernia History of myocardial infarction Hyperlipidemia Hypertension Intervertebral disc disorder of lumbar region with myelopathy Irritable bowel syndrome Myocardial infarction (HCC) Old myocardial infarction Peripheral vascular disease (HCC) PERS HX COLONIC POLYPS Preoperative testing 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 Sleep apnea SOB (shortness of breath) 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) Type 2 diabetes mellitus (HCC) Patient Goals: decrease pain, improve tolerance for upright physical activity Functional Limitations: Comments Functional Limitation Comments: walking, standing Prior Level of Function: Independent without limitations Intake Information: Prescription present Previous Treatment: Pain meds Aquatic Screen: No Red Flags Vertebral Fracture Red Flags: Age >70 Vertebral Fracture Clinical Reasoning: Proceed with caution due to the above (1- 2) risk factors Abdominal Aortic Aneurysm Red Flags: Age >60;History of PVD, CAD Abdominal Aortic Aneurysm Clinical Reasoning: Proceed with caution Cancer Red Flags: Age >50 or <20 Cancer Clinical Reasoning: Proceed with caution Infection Clinical Reasoning: No identified risk factors. Cauda Equina Syndrome Clinical Reasoning: No identified risk factors. Red Flags - Cervical Cancer Red Flags: Age >50 or <20 Cancer Clinical Reasoning: Proceed with caution Infection Clinical Reasoning: No identified risk factors. Pain: Pain Pain Level: 2 (worst pain over last week: 06/29) Pain Location: Low Back/Lumbar Spine - Right;Leg - Right Description: Aching Frequency: Continuous Post Treatment Pain Post Treatment Pain Level: No Change PROMIS Scales T-scores: mean of general population = 50. 5 points is clinically meaningfully difference Percentiles provide an indication of how the patient's score ranks in relation to the general population. Higher percentile rankings indicate better function/quality of life. 50th percentile is the average of the general population and indicates half of respondents had a worse score. T-scores: mean of general population = 50. 5 points is clinically meaningfully difference Percentiles provide an indication of how the patient's score ranks in relation to the general population. Higher percentile rankings indicate better function/quality of life. 50th percentile is the average of the general population and indicates half of respondents had a worse score. OBJECTIVE MEASURES WITH LEVEL OF FUNCTION: Posture / Alignment Posture: Forward head;Increased thoracic kyphosis;Decreased lumbar lordosis Spine Observations L Lumbar Spine Palpation Tenderness: Paraspinals Lumbar Spine AROM Lumbar Flexion: Moderate limitation;Increased pain (R SI regin) Lumbar Extension: Moderate limitation;Increased pain;Peripheralizing (concordant sign) Lumbar R Side-Bend: Moderate limitation;Increased pain;Peripheralizing (concordant sign) Lumbar L Side-Bend: Moderate limitation LE PROM R Hip Flexion: 100 Degrees (increased ROM in femoral plane) R Hip Internal Rotation: 30 Degrees (at 90) R Hip External Rotation: 40 Degrees (at 90, CHEPE WNL (with increased effort from patient, possiblelumbopelvic compensation)) L Hip Flexion: 100 Degrees (increased movement in femoral plane) L Hip Internal Rotation: 20 Degrees (at 90) L Hip External Rotation: 40 Degrees (at 90, CHEPE WNL (with increased effort from patient, possiblelumbopelvic compensation)) LE Flexibility Flexibility: Hamstring Flexibility;Piriformis Flexibility;Hip Flexor Flexibility;Straight Leg Raise R SLR Flexibility: passaive ~ 40, increased pain L SLR Flexibility: passive ~60 R Hip Flexor Flexibility: limtied per supine pat L Hip Flexor Flexibility: limited per supine pat R Piriformis Flexibility: mod limtiation, cross body L Piriformis Flexibility: WNL, cross body Spine Joint Mobility Joint Mobility Comment: ' Joint Mobility - L1: Hypomobile Joint Mobility - L2: Hypomobile Joint Mobility - L3: Hypomobile Joint Mobility - L4: Hypomobile Joint Mobility - L5: Hypomobile LE Strength R LE Strength: myotomes WNL L LE Strength: myotomes WNL Gait Gait Observation: reciprocal pattern, functioanls peed Stairs: reciprocal pattern Balance Static Standing Balance: Single Leg Stance Single Leg Stance: < 1 sec ea Education: Education Learning Preferences: Demonstration;Explanation;Performance;Printed Materials Barriers: None Learning/educational needs: Home exercise program;Plan of Care Education Provided: Yes, see treatment interventions for education provided Education Provided To: Patient Education Mode/Type: Demonstration;Explanation/Discussion;Literature/Printed Materials;Performance Response to Education/Teach Back: States/Identifies TREATMENT: PT Treatment Interventions: Therapeutic Exercise Evaluation Therapeutic Exercise: 1: *SKTC, 3 sec hold x 10, R 2: *sciatic nerve flossing, 3 sec hold x 15 3: *LTR, 3 sec hold x 10 ea 4: *trunk flexion AAROM, seated, stability ball roll out, 3 sec hold x 15 Skilled Intervention: Patient was educated in proper exercise technique and purpose for exercises. Reviewed and educated patient on additions/changes for home exercise program as above (*). Billing * Evaluation Low Complexity: 1 Unit Therapeutic Exercise Treatment Minutes: 10 Total Treatment Time Minutes (timed/untimed): 40 Soham Blancas PT, DPT documented in this encounterUniversity Hospitals [facility]04-14-2022 History of Present illness Narrative* Davin August PA-C - 01/01/2022 10:27 AM EDT Images from the original note were not included. Davin August PA-C [facility] [address] [id number] 01/01/2022 ASSESSMENT AND PLAN: Assessment : Encounter Diagnosis ICD-10-CM 1. Acute right-sided low back pain with right-sided sciatica M54.41 CONSULT TO PHYSICAL THERAPY Discussion: Mr. Hathaway is a very pleasant 71-year-old man accompanied by his at today's office visit. He is here for evaluation of right-sided leg and buttock pain that occasionally goes down to his foot. This has been going on for the past 1 month or so intermittently and is caused him additional troubles on top of his previously known diabetic peripheral polyneuropathy. He has had some difficulties walking and laying on the right side. If he lays on the left side his pain diminishes. Patient has a long and storied history of lower extremity vascular disease treated surgically. He is on chronic anticoagulants and cannot take oral NSAIDs. He had a very recent series of lumbar plain radiographs He mobilizes well from sitting to standing and his gait is essentially normal without favoring or antalgia. Balance is appreciably diminished There is mild pain on palpation over right PSIS and right upper outer buttock musculature but not over greater trochanter or sciatic notch Low back motion is essentially normal in all directions without significant pain reproduction He has normal strength throughout lower extremities and sensation deficits are limited to distal feet at the toes bilaterally. Voluntary sitting SLR is negative bilaterally Reflexes are diminished as noted below X-rays showed relatively normal appearance to the low back with age-appropriate degeneration at alllevels without focal disc space height loss, listhesis, fracture Vascular grafting in bilateral common iliacs are noted and aortic calcification is also readily seen His clinical picture is not completely clear at this point between vascular and neurogenic claudication. He does not appear to have any significant neurologic deficit attributable to lumbar region on today's exam He recently had his gabapentin increased and it may not have kicked in quite yet. We cannot use NSAID medications We will start PT and if he still has symptoms by the end of PT, I would plan to obtain lumbar MRI for definitive answer. Plan : REFERAL FOR SERVICES: -Physical therapy will be instituted. MEDICATIONS: -Current medication regimen is appropriate for this problem. ACTIVITY RECOMMENDATIONS: -The patient is encouraged to avoid bed rest and maintain normal activity. -The patient is encouraged to exercise regularly as tolerated. -The patient advised to avoid prolonged sitting. FOLLOW-UP: -The patient is instructed to return after six weeks of therapy. This document has been created with the use of voice recognition technology. It may contain inaccuracies: (e.g. misspellings, inaccurate syntax or word sense) that have escaped review. Time spent: 45 minutes today with this patient visit. This includes [id number] time, review of chart records regarding conservative care history, spine- pertinent imaging, and communication/care coordination with referring provider, problem-specific history-taking and counseling/education regarding treatment options. cc: Paulina Severino [address] [place] [address] [place] [id number] Results of consultation to be transmitted via electronic medical record for those providers who practice within [facility] or with access to [employer] via MD Connect, or via letter. ######################################################################## CHIEF COMPLAINT: Patient is here for lower back pain, right hip, pain goes down to the right foot. Walking makes pain worse. Laying down on the left side- helps with pain. Level of the pain is at 5/10 at this moment. Has this pain for 1 month. HPI: see Discussion above History of bowel or bladder dysfunction (not IBS or constipation): No History of previous spinal surgery: No History of spinal fracture: No Work Status: retired NON-OPERATIVE CARE: Medication(s): He has tried the following for relief of his symptoms: OTC Tylenol (doesn't really help) Physical Therapy: He has not had physical therapy for his current symptoms. Spinal Injections: He has not gotten prior spinal injections. Other: None Current Outpatient Medications Medication Sig Dispense Refill insulin glargine (LANTUS SOLOSTAR U-100 INSULIN) 100 unit/mL (3 mL) Inject 20 Units subcutaneously every morning. 30 mL 3 insulin lispro (HUMALOG KWIKPEN INSULIN) 200 unit/mL (3 mL) injection Inject 46 Units subcutaneously three times daily before meals. Dispense 20 pens for 90 days. DX: E11.42, E11.65, Z79.4 20 Pen 3 insulin NPH (HumuLIN N,NovoLIN N) pen Inject 45 Units subcutaneously daily at bedtime. DX: E11., .65, Z79.4 45 mL 3 gabapentin (NEURONTIN) 400 mg capsule Take 1 capsule by mouth three times daily for 90 days. 90 capsule 2 cefdinir (OMNICEF) 300 mg capsule Take 1 capsule by mouth twice daily for 10 days. 20 capsule 0 rivaroxaban (XARELTO) 20 mg tablet Take 1 tablet by mouth daily with dinner. 30 tablet 11 atenolol (TENORMIN) 50 mg tablet Take 1 tablet by mouth once daily. 90 tablet 3 ramipril (ALTACE) 10 mg capsule Take 1 capsule by mouth once daily. 90 capsule 3 rosuvastatin (CRESTOR) 20 mg tablet Take 1 tablet by mouth once daily. 90 tablet 3 fenofibrate nanocrystallized (TRICOR) 145 mg tablet Take 1 tablet by mouth once daily. 90 tablet 3 clopidogrel (PLAVIX) 75 mg tablet Take 1 tablet by mouth once daily. 90 tablet 3 TRUE METRIX GLUCOSE TEST STRIP test strip Use to test glucose 4 times daily, as directed. DX: E11.42, E11.65, Z79.4 400 Strip 3 UNIFINE PENTIPS PLUS 32 gauge x 5/32 Use for insulin pen injections 5 times daily, as directed. DX: E11., .65, Z79.4 500 Each 3 lancets (UNILET SUPER THIN LANCETS) 30 gauge Use to test glucose 4 times daily, as directed. DX: E11.42, E11.65, Z79.4 400 Each 3 valACYclovir (VALTREX) 1 gram Take 1 tablet by mouth three times daily. escitalopram oxalate (LEXAPRO) 10 mg tablet Take 10 mg by mouth once daily. ACETAMINOPHEN (TYLENOL ORAL) Take 1-2 tablets by mouth every 6 hours as needed. aspirin, enteric coated (ASPIRIN, ENTERIC COATED) 325 mg EC tablet Take 325 mg by mouth once daily. MULTIVIT &MINERALS/FERROUS FUM (MULTI VITAMIN ORAL) Take by mouth once daily. FLAXSEED OIL (OMEGA 3 ORAL) Take 1,000 mg by mouth once daily. No current facility-administered medications for this visit. 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 Carotid artery occlusion Carotid artery stenosis Cerebrovascular accident (CVA) (HCC) Coronary [place]iosclerosis [place] 1998 Depressive disorder Disc disorder of lumbar region Diverticulitis of colon Diverticulitis of colon Essential tremor Gastroesophageal reflux disease Generalized anxiety disorder Hiatal hernia History of myocardial infarction Hyperlipidemia Hypertension Intervertebral disc disorder of lumbar region with myelopathy Irritable bowel syndrome Myocardial infarction (HCC) Old myocardial infarction Peripheral vascular disease (HCC) PERS HX COLONIC POLYPS Preoperative testing 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 Sleep apnea SOB (shortness of breath) 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) Type 2 diabetes mellitus (HCC) PAST SURGICAL HISTORY Procedure Laterality Date ANGIOPLASTY 1998, 2004, 2013 CAROTID ENDARTERECTOMY Bilateral right 02/2013, left 08/2001 COLONOSCOPY FLX DX W/COLLJ SPEC WHEN PFRMD 2000 Colonoscopy with polypectomies ESOPHAGOGASTRODUODENOSCOPY TRANSORAL DIAGNOSTIC 2000 EGD reportedly normal EXPLORATION GROIN Left 04/29/2018 Left Groin Exploration, Thrombectomy of Left Limb of Axillo-Bifemoral Bypass, Revision of Left Femoral Anastomosis INSERT INTRACORONARY STENT 1998 RCA LAPAROSCOPY SURG CHOLECYSTECTOMY 1997 Cholecystectomy, lap LEFT HEART CATH,PERCUTANEOUS 1998 Cardiac cath, L heart PAST SURGICAL HISTORY OF Carotid stenosis PAST SURGICAL HISTORY OF Bilateral 12/25/2016 Axillo bifem bypass PAST SURGICAL HISTORY OF ureter removal STENT PLACEMENT 1998 BMS RCA STENT PLACEMENT 11/2013 MARVIN RCA Social History Tobacco Use Smoking status: Former Smoker Types: Cigarettes Quit date: 03/06/1999 Years since quittin.8 Smokeless tobacco: Never Used Tobacco comment: Start date: 1969; Stop date: 1998 Vaping Use Vaping Use: Never used Substance Use Topics Alcohol use: No Comment: abstinent x 6 yrs Drug use: No FAMILY HISTORY Problem Relation Age of Onset Ischemic Heart Disease Father Cancer Father Coronary Artery Disease Father Breast Cancer Mother REVIEW OF SYSTEMS: Constitutional: (-) Fever/Chills (-) Night Sweats (-) Weight Gain (-) Weight Loss (-) Fatigue Gastrointestinal: (-) Abdominal Pain (-) Diarrhea (-) Constipation (-) Nausea/Vomiting (-) Heart Burn Cardiovascular: (-) Chest Pain (-) Palpitations (-) Lightheadedness (-) Swelling of Ankles (+) Hx Heart Surgery/ 2 Stent Respiratory: (-) Short of Breath (+) Cough sinus (-) Snoring Neurologic: (-) Headache (-) Blurry Vision (-) Fainting Skin: (-) Rashes (-) Itching (-) Other Lesions Psychiatric: (-) Depression (-) Anxiety (-) Suicidal Thoughts Genitourinary: (-) Frequency (-) Urgency Endocrine: (-) Thyroid Disorder (+) Diabetes Hematologic: (+) Prolonged Bleeding (-) Easy Bruising ################################################################################ ################################################# PHYSICAL EXAM: Blood pressure (!) 153/47, pulse 65, height 163.8 cm (5' 4.5), weight 85.5 kg (188 lb 6.4 oz), SpO2 100 %. Body mass index is 31.84 kg/m . General: Patient is a(n) good historian. The patient appears approximately his stated age and is sitting comfortably in the examining room. The patient is short in stature and is obese in appearance.He has no difficulty arising from a sitting position. He does not have difficulty acquiring a full,upright position when standing. Station and Gait: Normal stance, normal gait. The patient is unable to walk in a tandem gait. MENTAL STATUS EXAMINATION: The patient was neatly dressed and well groomed. The patient had excellent eye contact and rapport was easy to establish. The patient appeared to be alert and oriented in all spheres. The patient's overall medical judgment appeared to be fair.The patient's motivation for treatment was judged based on today's encounter to be good. SPINE: Lumbar Lordosis: Normal Thoracic Kyphosis: Normal RANGE OF MOTION: Flexion: normal, as expected for age and weight Pain: No Extension: normal, as expected for age and weight Pain: No Lateral Bending: Right normal, as expected for age and weight Pain: No Left normal, as expected for age and weight Pain: No PALPATION TENDERNESS: Mild tenderness at: posterior pelvis and gluteal region Hyperesthesia present: No Regional symptoms present: No Increased pain with axial loading: No Distraction: Normal Pain responses: appropriate NEUROLOGIC EXAM: MOTOR: Walk on Toes: Right: Yes Left: Yes Walk on Heels: Right: Yes Left: Yes Requires verbal cues to minimize cog-wheel or give-way resistance: No Hip Flexor R: 5/5 L: 5/5 Hip Adductor R: 5/5 L: 5/5 Hip Abductor R: 5/5 L: 5/5 Knee Extension R: 5/5 L: 5/5 Foot Dorsiflexion R: 5/5 L: 5/5 Foot Plantar Flexion R: 5/5 L: 5/5 Ext Hallicus Longus R: 5/5 L: 5/5 Toe Extensors R: 5/5 L: 5/5 SENSATION to Light Touch: Lumbar: Stocking distribution (non-dermatomal) numbness affecting the bilateral toes. REFLEXES: Lower Extremity: All Lower Extremity reflexes symmetrically hyporeflexic. Clonus: R: 0 beats/Normal L: 0 beats/Normal Babinski Sign: Negative bilaterally. Upper Extremity: Brachioradialis: R: 0 inverted? No L: 0 inverted? No Biceps: R: 0 L: 0 Triceps: R: 0 L: 0 Tello's Sign: Negative bilaterally. VASCULAR: Skin appearance: Right: Warm/pink Left: Warm/pink Capillary refill: Right: brisk Left: brisk ADDITIONAL MUSCULOSKELETAL EXAM: HIP/PELVIS EXAM: Tenderness over the PSIS: Right: Yes Left: No Greater Trochanteric pain: Right: No Left: No SPECIAL TESTS: Straight Leg Raise: negative bilaterally Contralateral Straight Leg Raise: negative bilaterally IMAGING STUDIES: See discussion above documented in this encounterUniversity Hospitals [facility]04-12-2022 Instructions* Patient Instructions* Brigitte Dias APRN.CNP - 12/30/2021 1:55 PM EDT 1. Increase NPH 45 units at bedtime. 2. Continue lantus and humalog 3. Schedule your eye exam 4. Follow up in 4 months Brigitte Dias, MSN, HEALTH INFORMATION ASSISTANT, LASER PRINT OPERATOR-C, CDE Endocrinology [facility] Office [facility] [address] Fax: documented in this encounterUniversity Hospitals [facility]04-12-2022 History of Present illness Narrative* Brigitte Dias APRN.CNP - 12/30/2021 1:30 PM EDT Reason for Consultation: DM Type 2 Referring Physician: Landen Clement [address] [place] [address] HISTORY OF PRESENT ILLNESS Mr. Hathaway is a 71 year old male presenting here today for a follow up of DM Type 2. As I recall, he was initially diagnosed with diabetes 2011; insulin use since 2013. Patient of Dr. Clement; LV 04/04/21 He is new for me today. A1C today is 9.8 Dealing with sciatica/back issues and seeing spinal specialist He is under the care of vascular, Dr. Robin (retiring)--now Dr. Jones, and cardiology Dr. Moran. History in addition to diabetes include: hypertension, hyperlipidemia, peripheral neuropathy, cardiovascular disease (CAD, [place]) and TIA/CVA, PVD Exacerbating factors include: obesity Current diabetes regimen is as follows: Lantus 20 units in AM Humalog 46 units TID meals NPH 40 units at bedtime. he is checking his blood glucose 2-3 times daily. Cl -no longer using due to insurance. he does not bring a log book today for review. LDE Blood Sugar Frequency: No meter or log book today FBS low 200's acS 135 to 150 BG 53 to 230 Hypoglycemia frequency: occasionally with less oral intake Hypoglycemia awareness: Yes Regarding symptoms of hypoglycemia, he is not experiencing any symptoms such as polyuria, polydipsia, nocturia or rapid weight loss or blurry vision, Overall, the patient has no acute complaints at this time. PAST MEDICAL HISTORY Diagnosis Date Aortoiliac occlusive disease (HCC) Atherosclerotic heart disease of mentasta coronary artery without angina pectoris Carotid artery occlusion Carotid artery stenosis Cerebrovascular accident (CVA) ([facility]) Coronary arteriosclerosis [place] 1998 Depressive disorder Disc disorder of lumbar region Diverticulitis of colon Diverticulitis of colon Essential tremor Gastroesophageal reflux disease Generalized anxiety disorder Hiatal hernia History of myocardial infarction Hyperlipidemia Hypertension Intervertebral disc disorder of lumbar region with myelopathy Irritable bowel syndrome Myocardial infarction (HCC) Old myocardial infarction Peripheral vascular disease (HCC) PERS HX COLONIC POLYPS Preoperative testing 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 Sleep apnea SOB (shortness of breath) Thrombosis of right femoral-femoral bypass graft ([facility]) Type 2 diabetes mellitus ([facility]) PAST SURGICAL HISTORY Procedure Laterality Date ANGIOPLASTY 1998, 2004, 2013 CAROTID ENDARTERECTOMY Bilateral right 02/2013, left 08/2001 COLONOSCOPY FLX DX W/COLLJ SPEC WHEN PFRMD 2000 Colonoscopy with polypectomies ESOPHAGOGASTRODUODENOSCOPY TRANSORAL DIAGNOSTIC 2000 EGD reportedly normal EXPLORATION GROIN Left 04/29/2018 Left Groin Exploration, Thrombectomy of Left Limb of Axillo-Bifemoral Bypass, Revision of Left Femoral Anastomosis INSERT INTRACORONARY STENT 1998 RCA LAPAROSCOPY SURG CHOLECYSTECTOMY 1997 Cholecystectomy, lap LEFT HEART CATH,PERCUTANEOUS 1998 Cardiac cath, L heart PAST SURGICAL HISTORY OF Carotid stenosis PAST SURGICAL HISTORY OF Bilateral 12/25/2016 Axillo bifem bypass PAST SURGICAL HISTORY OF ureter removal STENT PLACEMENT 1998 BMS RCA STENT PLACEMENT 11/2013 MARVIN RCA FAMILY HISTORY Problem Relation Age of Onset Ischemic Heart Disease Father Cancer Father Coronary Artery Disease Father Breast Cancer Mother Social History Tobacco Use Smoking status: Former Smoker Types: Cigarettes Quit date: 03/06/1999 Years since quittin.8 Smokeless tobacco: Never Used Tobacco comment: Start date: 1969; Stop date: 1998 Vaping Use Vaping Use: Never used Substance Use Topics Alcohol use: No Comment: abstinent x 6 yrs Drug use: No Allergies As of Date: 12/30/2021 Allergen Noted Reaction ATORVASTATIN 07/22/2017 Myalgia LEVOFLOXACIN 07/22/2017 Unknown METFORMIN 02/07/2017 Diarrhea ROSUVASTATIN CALCIUM 10/23/2015 Other: See Comments Fully Assessed 12/30/2021 Current Outpatient Medications Medication Sig Dispense Refill insulin glargine (LANTUS SOLOSTAR U-100 INSULIN) 100 unit/mL (3 mL) Inject 20 Units subcutaneously every morning. 30 mL 3 insulin lispro (HUMALOG KWIKPEN INSULIN) 200 unit/mL (3 mL) injection Inject 46 Units subcutaneously three times daily before meals. Dispense 20 pens for 90 days. DX: E11.42, E11.65, Z79.4 20 Pen 3 insulin NPH (HumuLIN N,NovoLIN N) pen Inject 45 Units subcutaneously daily at bedtime. DX: E11.42, E11.65, Z79.4 45 mL 3 gabapentin (NEURONTIN) 400 mg capsule Take 1 capsule by mouth three times daily for 90 days. 90 capsule 2 cefdinir (OMNICEF) 300 mg capsule Take 1 capsule by mouth twice daily for 10 days. 20 capsule 0 rivaroxaban (XARELTO) 20 mg tablet Take 1 tablet by mouth daily with dinner. 30 tablet 11 atenolol (TENORMIN) 50 mg tablet Take 1 tablet by mouth once daily. 90 tablet 3 ramipril (ALTACE) 10 mg capsule Take 1 capsule by mouth once daily. 90 capsule 3 rosuvastatin (CRESTOR) 20 mg tablet Take 1 tablet by mouth once daily. 90 tablet 3 fenofibrate nanocrystallized (TRICOR) 145 mg tablet Take 1 tablet by mouth once daily. 90 tablet 3 clopidogrel (PLAVIX) 75 mg tablet Take 1 tablet by mouth once daily. 90 tablet 3 TRUE METRIX GLUCOSE TEST STRIP test strip Use to test glucose 4 times daily, as directed. DX: E11.42, E11.65, Z79.4 400 Strip 3 UNIFINE PENTIPS PLUS 32 gauge x 5/32 Use for insulin pen injections 5 times daily, as directed. DX: E11.42, E11.65, Z79.4 500 Each 3 lancets (UNILET SUPER THIN LANCETS) 30 gauge Use to test glucose 4 times daily, as directed. DX: E11.42, E11.65, Z79.4 400 Each 3 valACYclovir (VALTREX) 1 gram Take 1 tablet by mouth three times daily. escitalopram oxalate (LEXAPRO) 10 mg tablet Take 10 mg by mouth once daily. ACETAMINOPHEN (TYLENOL ORAL) Take 1-2 tablets by mouth every 6 hours as needed. aspirin, enteric coated (ASPIRIN, ENTERIC COATED) 325 mg EC tablet Take 325 mg by mouth once daily. MULTIVIT &MINERALS/FERROUS FUM (MULTI VITAMIN ORAL) Take by mouth once daily. FLAXSEED OIL (OMEGA 3 ORAL) Take 1,000 mg by mouth once daily. No current facility-administered medications for this visit. REVIEW OF SYSTEMS General: no fever and no chills Skin: no rashes, pruritis or dry skin Cardiac: denies chest pain, heart palpitations or orthopnea Pulmonary: denies wheezing, productive cough or exertional dyspnea PHYSICAL EXAMINATION BP 110/60 Pulse 71 Ht 164.1 cm (5' 4.61) Wt 85.8 kg (189 lb 3.2 oz) SpO2 97% BMI 31.87 kg/m2 Physical Exam Constitutional: Appearance: Normal appearance. Cardiovascular: Rate and Rhythm: Normal rate and regular rhythm. Pulmonary: Effort: Pulmonary effort is normal. Breath sounds: Normal breath sounds. Skin: General: Skin is warm and dry. Neurological: Mental Status: He is alert and oriented to person, place, and time. Psychiatric: Mood and Affect: Mood normal. Behavior: Behavior normal. Feet:Shoes and socks removed, sensitive to 10 gm monofilament and calluses noted bilaterally. Toes cool to touch and unable to palpate pulses in feet--states this is his baseline and vascular uses dopplers to check pulse. DATA Creatinine (POCT) Date Value Ref Range Status 09/23/2021 1.10 0.60 - 1.30 mg/dL Final Hemoglobin A1C (%) Date Value 02/21/2020 11.6 Hemoglobin A1C (POCT) (%) Date Value 12/30/2021 9.8 ) No components found for: URINEALBUMIN Cholesterol, Total (mg/dL) Date Value 04/09/2021 115 02/21/2020 102 HDL Cholesterol (mg/dL) Date Value 04/09/2021 34 02/21/2020 38 LDL Cholesterol (mg/dL) Date Value 04/09/2021 35 04/20/2017 73 LDL Calculated (mg/dL) Date Value 02/21/2020 24 Triglyceride (mg/dL) Date Value 04/09/2021 229 02/21/2020 201 IMPRESSION: Mr. Hathaway is a 71 year old male here for evaluation of DM Type 2 complicated by hypertension, hyperlipidemia, peripheral neuropathy, cardiovascular disease, peripheral vascular disease, microalbuminuria and TIA/CVA, obesity RECOMMENDATIONS: (E11.40, Z79.4) Type 2 diabetes mellitus with diabetic neuropathy, with long- term current use of insulin (HCC) (primary encounter diagnosis) Comment: (E11.51, Z79.4) Type 2 diabetes mellitus with diabetic peripheral angiopathy without gangrene, withlong-term current use of insulin (HCC) (E11.29, R80.9, Z79.4) Type 2 diabetes mellitus with microalbuminuria, with long-term current use of insulin (HCC) Comment: Glycemic control is poor. NPH insulin adjusted. Plan: HEMOGLOBIN A1C (POC), insulin glargine (LANTUS SOLOSTAR U-100 INSULIN) 100 unit/mL (3 mL), insulin lispro (HUMALOG KWIKPEN INSULIN) 200 unit/mL (3 mL) injection, insulin NPH (HumuLIN N,NovoLIN N) pen Increase NPH 45 units at bedtime. Continue lantus and humalog Schedule your eye exam Follow up in 4 months (E78.2) Mixed hyperlipidemia Comment: hx of CAD, [place], CVA; taking crestor, fenofibrate. Plan: Managed per cardiology/PCP (I10) Primary hypertension Comment/Plan: managed per cardiology; he is on an TILA (I73.9) Peripheral vascular disease (HCC) Comment/Plan: Managed per vascular (E66.9, Z68.31) Class 1 obesity with serious comorbidity and body mass index (BMI) of 31.0 to 31.9 in adult, unspecified obesity type Comment: Body mass index is 31.87 kg/m . Plan: Encouraged increase dietary and exercise efforts as able I spent a total of 30 minutes on the date of the service which included preparing to see the patient, [id number] patient care, completing clinical documentation, obtaining and/or reviewing separately obtained history, performing a medically appropriate examination, counseling and educating the pat ient/family/caregiver, ordering medications, tests, or procedures, independently interpreting results (not separately reported) and communicating results to the patient/family/caregiver. Brigitte Dias, MSN, HEALTH INFORMATION ASSISTANT, LASER PRINT OPERATOR-C, CDE Endocrinology [facility] Office [facility]/[address], [address] [place], [place] [address] Fax: documented in this encounterUniversity Hospitals [facility]04-06-2022 Miscellaneous Notes* Telephone Encounter - Kenneth Annika - 12/24/2021 9:31 AM EDT LM for patient about moving appointment. Told him to call if it didn't work. documented in this encounterUniversity Hospitals [facility]04-04-2022 History of Present illness Narrative* Paulina Severino MD - 12/22/2021 10:00 AM EDT CHIEF COMPLAINT Patient presents with: Back Pain: sinus issues HISTORY OF PRESENT ILLNESS Shilo Hathaway is a 70 year old male who presents here today for evaluation of sinus congestion. I last saw this patient on 09/18/21. Sinus congestion Patient has facial pressure, nasal drainage, and cough for about a week. He says that his symptoms have not improved. Sciatic Pain Patient only has pain on the right side. He has tried exercising but it has not helped with the pain. Patient says that laying on the floor helps. He does not know what kind of medication to take. Hypertension Patient says that his home BP has been running in the 130's. adherent to current regimen without side effects from medication. No current symptoms. Diabetes Mellitus Patient has not really been checking his sugars. Patient has a follow up appointment with Health Maintenance Due for depression screening. Due for one time hepatitis C screening. Due for TDAP. Due for routine colon cancer screening. Due for Shingrix series Due for Pneumovax. Due for advance directive discussion. Due for diabetic foot exam. Due for dilated retinal exam. Due for routine labs. Labs reviewed. Past medical history, appointments, medications, allergies reviewed. REVIEW OF SYSTEMS Pertinent positives/ negatives: General: Feels well, no fever, no chills, +obesity. HEENT: No earache, sore throat. +sinus congestion Cardiac: No chest pain, palpitations +elevated BP Resp: No wheeze, shortness of breath +cough GI: No reflux symptoms, food intolerance, bowel changes. : No urinary frequency, dysuria. 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 Carotid artery occlusion Carotid artery stenosis Cerebrovascular accident (CVA) ([facility]) Coronary arteriosclerosis [place] 1998 Depressive disorder Disc disorder of lumbar region Diverticulitis of colon Diverticulitis of colon Essential tremor Gastroesophageal reflux disease Generalized anxiety disorder Hiatal hernia History of myocardial infarction Hyperlipidemia Hypertension Intervertebral disc disorder of lumbar region with myelopathy Irritable bowel syndrome Myocardial infarction ([facility]) Old myocardial infarction Peripheral vascular disease ([facility]) PERS HX COLONIC POLYPS Preoperative testing 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 Obese. Heart: Regular rate and rhythm. Normal S1 and S2. No murmurs, rubs, or gallops. Lungs: Clear to auscultation bilaterally. No respiratory distress. No wheezes, rales, or rhonchi. Abdomen: Soft, non-tender, no distention. Extremities: Feet/ankles without edema, posterior tibial pulses full and symmetrical. Reflexes diminished in ankles. Data Reviewed 12/02/21 XR lumbar- IMPRESSION: Degenerative changes in the lumbar spine as described without acute osseous findings. No acute osseous finding right hip. Mild osteoarthritis XR hip-IMPRESSION: Degenerative changes in the lumbar spine as described without acute osseous findings. No acute osseous finding right hip. Mild osteoarthritis. Assessment/Plan (I10) Hypertension (primary encounter diagnosis) Comment: blood pressure elevated on arrival and remained high on repeat Plan: continue to monitor. (E11.40, Z79.4) Type 2 diabetes mellitus with diabetic neuropathy, with long- term current use of insulin (HCC) (E11.40) Painful diabetic neuropathy (HCC) Comment: well controlled on current regimen Plan: DISCONTINUED: gabapentin (NEURONTIN) 300 mg capsule (M54.41) Acute right-sided low back pain with right-sided sciatica Comment: scans reveal degeneration. Pain not improving. Plan: CONSULT TO [facility] [place]/SPINE/OCC MED, DISCONTINUED: gabapentin (NEURONTIN) 300 mg capsule (J32.9, B96.89) Bacterial sinusitis Comment: symptoms ongoing for a week. Likely a sinus infection Plan: cefdinir (OMNICEF) 300 mg capsule Signed Prescriptions Disp Refills gabapentin (NEURONTIN) 400 mg capsule 90 capsule 2 Sig: Take 1 capsule by mouth three times daily for 90 days. cefdinir (OMNICEF) 300 mg capsule 20 capsule 0 Sig: Take 1 capsule by mouth twice daily for 10 days. RTO: 6 months Scribe Attestation: By signing my name below, I, Abbey Ozuna, attest that this documentation has been prepared under the direction and in the presence of Manpreet Severino M.D. Electronically Signed: Neftali Saha. December 22, 2021 9:18 AM Provider Attestation: I, Paulina Severino MD, personally performed the services described in this documentation. All medical record entries made by the scribe were at my direction and in my presence. I have reviewed the chart and discharge instructions (if applicable) and agree that the record reflects my personal performance and is accurate and complete. Electronically Signed: Pualina Severino MD. December 22, 2021 2:45 PM [facility] of Past illness Narrative* Problem Noted Date Resolved Date Double vision 07/26/2017 09/30/2018 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 Headache(784.0) 09/08/2015 Abdominal pain, left lower quadrant 09/08/2015 Pain in limb 09/08/2015 SOB (shortness of breath) 2020 Myocardial infarction 04/04/2021 documented as of this encounter (statuses as of 12/22/2021) [facility] of Past illness Narrative* Problem Noted Date Resolved Date Double vision 07/26/2017 09/30/2018 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 Headache(784.0) 09/08/2015 Abdominal pain, left lower quadrant 09/08/2015 Pain in limb 09/08/2015 SOB (shortness of breath) 2020 Myocardial infarction 04/04/2021 documented as of this encounter (statuses as of 12/24/2021) [facility] of [facility] illness Narrative* Problem Noted Date Resolved Date Double vision 07/26/2017 09/30/2018 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 Headache(784.0) 09/08/2015 Abdominal pain, left lower quadrant 09/08/2015 Pain in limb 09/08/2015 SOB (shortness of breath) 2020 Myocardial infarction 04/04/2021 documented as of this encounter (statuses as of 12/30/2021) [facility] Narrative* Problem Noted Date Resolved Date Double vision 07/26/2017 09/30/2018 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 Headache(784.0) 09/08/2015 Abdominal pain, left lower quadrant 09/08/2015 Pain in limb 09/08/2015 SOB (shortness of breath) 2020 Myocardial infarction 04/04/2021 documented as of this encounter (statuses as of 01/01/2022) [facility] illness Narrative* Problem Noted Date Resolved Date Double vision 07/26/2017 09/30/2018 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 Headache(784.0) 09/08/2015 Abdominal pain, left lower quadrant 09/08/2015 Pain in limb 09/08/2015 SOB (shortness of breath) 2020 Myocardial infarction 04/04/2021 documented as of this encounter (statuses as of 01/16/2022) [facility] illness Narrative* Problem Noted Date Resolved Date Double vision 07/26/2017 09/30/2018 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 Headache(784.0) 09/08/2015 Abdominal pain, left lower quadrant 09/08/2015 Pain in limb 09/08/2015 SOB (shortness of breath) 2020 Myocardial infarction 04/04/2021 documented as of this encounter (statuses as of 01/19/2022) [facility] illness Narrative* Problem Noted Date Resolved Date Double vision 07/26/2017 09/30/2018 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 Headache(784.0) 09/08/2015 Abdominal pain, left lower quadrant 09/08/2015 Pain in limb 09/08/2015 SOB (shortness of breath) 2020 Myocardial infarction 04/04/2021 documented as of this encounter (statuses as of 01/20/2022) [facility] Narrative* Problem Noted Date Resolved Date Double vision 07/26/2017 09/30/2018 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 Headache(784.0) 09/08/2015 Abdominal pain, left lower quadrant 09/08/2015 Pain in limb 09/08/2015 SOB (shortness of breath) 2020 Myocardial infarction 04/04/2021 documented as of this encounter (statuses as of 01/28/2022) [facility] Narrative* Problem Noted Date Resolved Date Double vision 07/26/2017 09/30/2018 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 Headache(784.0) 09/08/2015 Abdominal pain, left lower quadrant 09/08/2015 Pain in limb 09/08/2015 SOB (shortness of breath) 2020 Myocardial infarction 04/04/2021 documented as of this encounter (statuses as of 02/05/2022) [facility] Narrative* Problem Noted Date Resolved Date Double vision 07/26/2017 09/30/2018 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 Headache(784.0) 09/08/2015 Abdominal pain, left lower quadrant 09/08/2015 Pain in limb 09/08/2015 SOB (shortness of breath) 2020 Myocardial infarction 04/04/2021 documented as of this encounter (statuses as of 02/13/2022) [facility] illness Narrative* Problem Noted Date Resolved Date Double vision 07/26/2017 09/30/2018 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 Headache(784.0) 09/08/2015 Abdominal pain, left lower quadrant 09/08/2015 Pain in limb 09/08/2015 SOB (shortness of breath) 2020 Myocardial infarction 04/04/2021 documented as of this encounter (statuses as of 02/20/2022) [facility] illness Narrative* Problem Noted Date Resolved Date Double vision 07/26/2017 09/30/2018 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 Headache(784.0) 09/08/2015 Abdominal pain, left lower quadrant 09/08/2015 Pain in limb 09/08/2015 SOB (shortness of breath) 2020 Myocardial infarction 04/04/2021 documented as of this encounter (statuses as of 03/04/2022) [facility] illness Narrative* Problem Noted Date Resolved Date Double vision 07/26/2017 09/30/2018 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 Headache(784.0) 09/08/2015 Abdominal pain, left lower quadrant 09/08/2015 Pain in limb 09/08/2015 SOB (shortness of breath) 2020 Myocardial infarction 04/04/2021 documented as of this encounter (statuses as of 03/07/2022) [facility] illness Narrative* Problem Noted Date Resolved Date Double vision 07/26/2017 09/30/2018 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 Headache(784.0) 09/08/2015 Abdominal pain, left lower quadrant 09/08/2015 Pain in limb 09/08/2015 SOB (shortness of breath) 2020 Myocardial infarction 04/04/2021 documented as of this encounter (statuses as of 03/13/2022) [facility] illness Narrative* Problem Noted Date Resolved Date Double vision 07/26/2017 09/30/2018 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 Headache(784.0) 09/08/2015 Abdominal pain, left lower quadrant 09/08/2015 Pain in limb 09/08/2015 SOB (shortness of breath) 2020 Myocardial infarction 04/04/2021 documented as of this encounter (statuses as of 03/18/2022) [facility] Narrative* Problem Noted Date Resolved Date Double vision 07/26/2017 09/30/2018 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 Headache(784.0) 09/08/2015 Abdominal pain, left lower quadrant 09/08/2015 Pain in limb 09/08/2015 SOB (shortness of breath) 2020 Myocardial infarction 04/04/2021 documented as of this encounter (statuses as of 03/24/2022) [facility] Narrative* Problem Noted Date Resolved Date Double vision 07/26/2017 09/30/2018 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 Headache(784.0) 09/08/2015 Abdominal pain, left lower quadrant 09/08/2015 Pain in limb 09/08/2015 SOB (shortness of breath) 2020 Myocardial infarction 04/04/2021 documented as of this encounter (statuses as of 03/24/2022) [facility] illness Narrative* Problem Noted Date Resolved Date Double vision 07/26/2017 09/30/2018 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 Headache(784.0) 09/08/2015 Abdominal pain, left lower quadrant 09/08/2015 Pain in limb 09/08/2015 SOB (shortness of breath) 2020 Myocardial infarction 04/04/2021 documented as of this encounter (statuses as of 03/25/2022) [facility] Narrative* Problem Noted Date Resolved Date Double vision 07/26/2017 09/30/2018 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 Headache(784.0) 09/08/2015 Abdominal pain, left lower quadrant 09/08/2015 Pain in limb 09/08/2015 SOB (shortness of breath) 2020 Myocardial infarction 04/04/2021 documented as of this encounter (statuses as of 03/25/2022) [facility] Narrative* Problem Noted Date Resolved Date Double vision 07/26/2017 09/30/2018 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 Headache(784.0) 09/08/2015 Abdominal pain, left lower quadrant 09/08/2015 Pain in limb 09/08/2015 SOB (shortness of breath) 2020 Myocardial infarction 04/04/2021 documented as of this encounter (statuses as of 03/30/2022) [facility] Narrative* Problem Noted Date Resolved Date Double vision 07/26/2017 09/30/2018 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 Headache(784.0) 09/08/2015 Abdominal pain, left lower quadrant 09/08/2015 Pain in limb 09/08/2015 SOB (shortness of breath) 2020 Myocardial infarction 04/04/2021 documented as of this encounter (statuses as of 03/31/2022) [facility] Narrative* Problem Noted Date Resolved Date Double vision 07/26/2017 09/30/2018 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 Headache(784.0) 09/08/2015 Abdominal pain, left lower quadrant 09/08/2015 Pain in limb 09/08/2015 SOB (shortness of breath) 2020 Myocardial infarction 04/04/2021 documented as of this encounter (statuses as of 03/31/2022) [facility] Narrative* Problem Noted Date Resolved Date Double vision 07/26/2017 09/30/2018 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 Headache(784.0) 09/08/2015 Abdominal pain, left lower quadrant 09/08/2015 Pain in limb 09/08/2015 SOB (shortness of breath) 2020 Myocardial infarction 04/04/2021 documented as of this encounter (statuses as of 04/14/2022) [facility] Narrative* Problem Noted Date Resolved Date Double vision 07/26/2017 09/30/2018 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 Headache(784.0) 09/08/2015 Abdominal pain, left lower quadrant 09/08/2015 Pain in limb 09/08/2015 SOB (shortness of breath) 2020 Myocardial infarction 04/04/2021 documented as of this encounter (statuses as of 04/14/2022) [facility] illness Narrative* Problem Noted Date Resolved Date Double vision 07/26/2017 09/30/2018 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 Headache(784.0) 09/08/2015 Abdominal pain, left lower quadrant 09/08/2015 Pain in limb 09/08/2015 SOB (shortness of breath) 2020 Myocardial infarction 04/04/2021 documented as of this encounter (statuses as of 04/15/2022) [facility] illness Narrative* Problem Noted Date Resolved Date Double vision 07/26/2017 09/30/2018 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 Headache(784.0) 09/08/2015 Abdominal pain, left lower quadrant 09/08/2015 Pain in limb 09/08/2015 SOB (shortness of breath) 2020 Myocardial infarction 04/04/2021 documented as of this encounter (statuses as of 04/16/2022) [facility] Narrative* Problem Noted Date Resolved Date Double vision 07/26/2017 09/30/2018 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 Headache(784.0) 09/08/2015 Abdominal pain, left lower quadrant 09/08/2015 Pain in limb 09/08/2015 SOB (shortness of breath) 2020 Myocardial infarction 04/04/2021 documented as of this encounter (statuses as of 04/17/2022) [facility] Narrative* Problem Noted Date Resolved Date Double vision 07/26/2017 09/30/2018 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 Headache(784.0) 09/08/2015 Abdominal pain, left lower quadrant 09/08/2015 Pain in limb 09/08/2015 SOB (shortness of breath) 2020 Myocardial infarction 04/04/2021 documented as of this encounter (statuses as of 04/20/2022) [facility] Narrative* Problem Noted Date Resolved Date Double vision 07/26/2017 09/30/2018 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 Headache(784.0) 09/08/2015 Abdominal pain, left lower quadrant 09/08/2015 Pain in limb 09/08/2015 SOB (shortness of breath) 2020 Myocardial infarction 04/04/2021 documented as of this encounter (statuses as of 04/21/2022) [facility] Narrative* Problem Noted Date Resolved Date Double vision 07/26/2017 09/30/2018 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 Headache(784.0) 09/08/2015 Abdominal pain, left lower quadrant 09/08/2015 Pain in limb 09/08/2015 SOB (shortness of breath) 2020 Myocardial infarction 04/04/2021 documented as of this encounter (statuses as of 04/24/2022) [facility] Narrative* Problem Noted Date Resolved Date Double vision 07/26/2017 09/30/2018 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 Headache(784.0) 09/08/2015 Abdominal pain, left lower quadrant 09/08/2015 Pain in limb 09/08/2015 SOB (shortness of breath) 2020 Myocardial infarction 04/04/2021 documented as of this encounter (statuses as of 04/28/2022) [facility] Narrative* Problem Noted Date Resolved Date Double vision 07/26/2017 09/30/2018 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 Headache(784.0) 09/08/2015 Abdominal pain, left lower quadrant 09/08/2015 Pain in limb 09/08/2015 SOB (shortness of breath) 2020 Myocardial infarction 04/04/2021 documented as of this encounter (statuses as of 05/15/2022) [facility] note* Diagnosis Hypertension- Primary Unspecified essential hypertension Type 2 diabetes mellitus with diabetic neuropathy, with long-term current use of insulin ([facility]) Painful diabetic neuropathy (HCC) Type II or unspecified type diabetes mellitus with neurological manifestations, not stated as uncontrolled Acute right-sided low back pain with right-sided sciatica Bacterial sinusitis Unspecified sinusitis (chronic) [facility] Diagnosis Type 2 diabetes mellitus with diabetic neuropathy, with long-term current use of insulin (HCC)- Primary Type 2 diabetes mellitus with diabetic peripheral angiopathy without gangrene, with long-term current use of insulin (HCC) Type 2 diabetes mellitus with microalbuminuria, with long-term current use of insulin (HCC) Mixed hyperlipidemia Primary hypertension Unspecified essential hypertension Peripheral vascular disease (HCC) Peripheral vascular disease, unspecified Class 1 obesity with serious comorbidity and body mass index (BMI) of 31.0 to 31.9 in adult, unspecified obesity type [facility] Diagnosis Acute right-sided low back pain with right-sided sciatica [facility] Diagnosis Acute right-sided low back pain with right-sided sciatica [facility] Diagnosis Acute right-sided low back pain with right-sided sciatica- Primary [facility] Diagnosis Acute right-sided low back pain with right-sided sciatica- Primary [facility] Diagnosis Acute right-sided low back pain with right-sided sciatica- Primary [facility] Diagnosis Acute right-sided low back pain with right-sided sciatica- Primary [facility] Diagnosis Spinal stenosis of lumbar region with neurogenic claudication Spinal stenosis, lumbar region, with neurogenic claudication [facility] Diagnosis DDD (degenerative disc disease), lumbar- Primary Degeneration of lumbar or lumbosacral intervertebral disc Right sided sciatica Sciatica Lumbar foraminal stenosis Spinal stenosis, lumbar region, without neurogenic claudication Type 2 diabetes mellitus with diabetic neuropathy, with long-term current use of insulin ([facility]) Hospital discharge follow-up Other follow-up examination Chronic anticoagulation Long-term (current) use of anticoagulants [facility] Diagnosis Spinal stenosis of lumbar region with neurogenic claudication- Primary Spinal stenosis, lumbar region, with neurogenic claudication Acute right-sided low back pain with right-sided sciatica [facility] Diagnosis DDD (degenerative disc disease), lumbar Degeneration of lumbar or lumbosacral intervertebral disc Right sided sciatica Sciatica [facility] Diagnosis Acute midline low back pain, unspecified whether sciatica present- Primary [facility] Diagnosis Acute right-sided low back pain with right-sided sciatica- Primary [facility] Diagnosis DDD (degenerative disc disease), lumbar Degeneration of lumbar or lumbosacral intervertebral disc Right sided sciatica Sciatica [facility] Diagnosis Spinal stenosis, lumbar region, without neurogenic claudication- Primary Disturbance of skin sensation Radiculopathy, lumbosacral region Thoracic or lumbosacral neuritis or radiculitis, unspecified Other chronic pain Spinal stenosis of lumbar region with neurogenic claudication Spinal stenosis, lumbar region, with neurogenic claudication [facility] Diagnosis Spinal stenosis of lumbar region with neurogenic claudication Spinal stenosis, lumbar region, with neurogenic claudication [facility] Diagnosis Gangrene (HCC)- Primary Gangrene PAD (peripheral artery disease) ([facility]) Peripheral vascular disease, unspecified Atherosclerosis of aorta (HCC) Atherosclerosis of aorta Peripheral vascular disease (HCC) Peripheral vascular disease, unspecified Diminished pulses in lower extremity Other symptoms involving cardiovascular system Disorder of artery or arteriole (HCC) Unspecified disorders of arteries and arterioles Acute midline low back pain, unspecified whether sciatica present- Primary [facility] Diagnosis Atherosclerosis of aorta (HCC) Atherosclerosis of aorta Peripheral vascular disease (HCC) Peripheral vascular disease, unspecified Diminished pulses in lower extremity Other symptoms involving cardiovascular system Disorder of artery or arteriole (HCC) Unspecified disorders of arteries and arterioles Acute midline low back pain, unspecified whether sciatica present- Primary [facility] Diagnosis PVD (peripheral vascular disease) ([facility])- Primary Peripheral vascular disease, unspecified Atherosclerosis of mentasta artery of left lower extremity with gangrene (HCC) Atherosclerosis of mentasta arteries of the extremities with gangrene PVD (peripheral vascular disease) (HCC) Peripheral vascular disease, unspecified Atherosclerosis of mentasta artery of left lower extremity with gangrene (HCC) Atherosclerosis of mentasta arteries of the extremities with gangrene [facility] Lung nodules- Primary Other nonspecific abnormal finding of lung field [facility] Diagnosis Post-operative pain Other acute postoperative pain [facility] Diagnosis Post-operative pain Other acute postoperative pain S/P vascular bypass- Primary Other postprocedural status History of above knee amputation, unspecified laterality ([facility]) HFrEF (heart failure with reduced ejection fraction) ([facility]) Heart failure, unspecified NSTEMI (non-ST elevated myocardial infarction) ([facility]) Acute myocardial infarction, subendocardial infarction, episode of care unspecified 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 ([facility]) Primary hypertension Unspecified essential hypertension Mixed hyperlipidemia Type 2 diabetes mellitus with diabetic peripheral angiopathy without gangrene, with long-term current use of insulin ([facility]) [facility] Diagnosis S/P AKA (above knee amputation), left ([facility])- Primary S/P vascular bypass Other postprocedural status PVD (peripheral vascular disease) (HCC) Peripheral vascular disease, unspecified Aortoiliac occlusive disease (HCC) Other arterial embolism and thrombosis of abdominal aorta S/P vascular bypass- Primary Other postprocedural status History of above knee amputation, unspecified laterality ([facility]) HFrEF (heart failure with reduced ejection fraction) ([facility]) Heart failure, unspecified NSTEMI (non-ST elevated myocardial infarction) ([facility]) Acute myocardial infarction, subendocardial infarction, episode of care unspecified 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 ([facility]) Primary hypertension Unspecified essential hypertension Mixed hyperlipidemia Type 2 diabetes mellitus with diabetic peripheral angiopathy without gangrene, with long-term current use of insulin ([facility]) [facility] [facility] note* Diagnosis Post-operative pain Other acute postoperative pain S/P vascular bypass- Primary Other postprocedural status History of above knee amputation, unspecified laterality ([facility]) HFrEF (heart failure with reduced ejection fraction) ([facility]) Heart failure, unspecified NSTEMI (non-ST elevated myocardial infarction) ([facility]) Acute myocardial infarction, subendocardial infarction, episode of care unspecified 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 ([facility]) Primary hypertension Unspecified essential hypertension Mixed hyperlipidemia Type 2 diabetes mellitus with diabetic peripheral angiopathy without gangrene, with long-term current use of insulin ([facility]) documented in this encounter [facility] note* Diagnosis Type 2 diabetes mellitus ([facility]) Type II or unspecified type diabetes mellitus without mention of complication, not stated as uncontrolled Hyperlipidemia Other and unspecified hyperlipidemia S/P vascular bypass- Primary Other postprocedural status History of above knee amputation, unspecified laterality ([facility]) HFrEF (heart failure with reduced ejection fraction) ([facility]) Heart failure, unspecified NSTEMI (non-ST elevated myocardial infarction) ([facility]) Acute myocardial infarction, subendocardial infarction, episode of care unspecified 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 ([facility]) Primary hypertension Unspecified essential hypertension Mixed hyperlipidemia Type 2 diabetes mellitus with diabetic peripheral angiopathy without gangrene, with long-term current use of insulin ([facility]) documented in this encounter [facility] note* Diagnosis Type 2 diabetes mellitus with diabetic peripheral angiopathy without gangrene, with long-term current use of insulin ([facility])- Primary Encounter for immunization Need for other specified prophylactic vaccination against single bacterial disease Painful diabetic neuropathy ([facility]) Type II or unspecified type diabetes mellitus with neurological manifestations, not stated as uncontrolled S/P AKA (above knee amputation) unilateral, left ([facility]) S/P vascular bypass- Primary Other postprocedural status History of above knee amputation, unspecified laterality ([facility]) HFrEF (heart failure with reduced ejection fraction) ([facility]) Heart failure, unspecified NSTEMI (non-ST elevated myocardial infarction) (HCC) Acute myocardial infarction, subendocardial infarction, episode of care unspecified 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 ([facility]) Primary hypertension Unspecified essential hypertension Mixed hyperlipidemia Type 2 diabetes mellitus with diabetic peripheral angiopathy without gangrene, with long-term current use of insulin ([facility]) [facility] Diagnosis Type 2 diabetes mellitus with diabetic peripheral angiopathy without gangrene, with long-term current use of insulin ([facility])- Primary Primary hypertension Unspecified essential hypertension Mixed hyperlipidemia Anemia, unspecified type [facility] Diagnosis Bilateral carotid artery stenosis Occlusion and stenosis of carotid artery without mention of cerebral infarction History of bilateral carotid endarterectomy [facility] Diagnosis S/P AKA (above knee amputation), left ([facility])- Primary [facility] Diagnosis Difficulty walking Difficulty in walking Weakness of both lower extremities [facility] Diagnosis Difficulty walking- Primary Difficulty in walking Weakness of both lower extremities [facility] Diagnosis Difficulty walking- Primary Difficulty in walking Weakness of both lower extremities [facility] Diagnosis Difficulty walking- Primary Difficulty in walking Weakness of both lower extremities [facility] Diagnosis Difficulty walking- Primary Difficulty in walking Weakness of both lower extremities [facility] Diagnosis Difficulty walking- Primary Difficulty in walking Weakness of both lower extremities [facility] Diagnosis Difficulty walking- Primary Difficulty in walking Weakness of both lower extremities [facility] Diagnosis Occult blood positive stool- Primary Nonspecific abnormal finding in stool contents [facility] Diagnosis Occult blood positive stool- Primary Nonspecific abnormal finding in stool contents [facility] Diagnosis Difficulty walking- Primary Difficulty in walking Weakness of both lower extremities [facility] Diagnosis PVD (peripheral vascular disease) ([facility])- Primary Peripheral vascular disease, unspecified [facility] Diagnosis Coronary artery disease involving mentasta coronary artery of mentasta heart without angina pectoris [facility] Diagnosis Difficulty walking- Primary Difficulty in walking Weakness of both lower extremities [facility] Diagnosis Difficulty walking- Primary Difficulty in walking Weakness of both lower extremities [facility] Diagnosis Positive FIT (fecal immunochemical test)- Primary Nonspecific abnormal finding in stool contents Malnutrition of mild degree (HCC) Malnutrition of mild degree [facility] Diagnosis Positive FIT (fecal immunochemical test)- Primary Nonspecific abnormal finding in stool contents History of colonic polyps Personal history of colonic polyps [facility] Diagnosis Difficulty walking- Primary Difficulty in walking Weakness of both lower extremities [facility] Diagnosis Difficulty walking- Primary Difficulty in walking Weakness of both lower extremities [facility]* Diagnosis Type 2 diabetes mellitus with diabetic peripheral angiopathy without gangrene, with long-term current use of insulin ([facility])- Primary S/P AKA (above knee amputation) unilateral, left (HCC) HFrEF (heart failure with reduced ejection fraction) (HCC) Heart failure, unspecified Sciatic nerve pain, unspecified laterality Peripheral vascular disease (HCC) Peripheral vascular disease, unspecified 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 ([facility]) [facility] Diagnosis Difficulty walking- Primary Difficulty in walking Weakness of both lower extremities [facility] Diagnosis Difficulty walking- Primary Difficulty in walking Weakness of both lower extremities [facility]* Diagnosis Difficulty walking- Primary Difficulty in walking Weakness of both lower extremities [facility] Diagnosis Type 2 diabetes mellitus with diabetic peripheral angiopathy without gangrene, with long-term current use of insulin (HCC)- Primary Other age-related incipient cataract of right eye Encounter for immunization Need for other specified prophylactic vaccination against single bacterial disease Depressive disorder Depressive disorder, not elsewhere classified [facility]* Diagnosis Difficulty walking- Primary Difficulty in walking Weakness of both lower extremities [facility]* Diagnosis Difficulty walking- Primary Difficulty in walking Weakness of both lower extremities [facility]* Diagnosis Type 2 diabetes mellitus with diabetic peripheral angiopathy without gangrene, with long-term current use of insulin ([facility]) [facility] Diagnosis Positive FIT (fecal immunochemical test)- Primary Nonspecific abnormal finding in stool contents History of colonic polyps Personal history of colonic polyps [facility] Diagnosis Difficulty walking- Primary Difficulty in walking Weakness of both lower extremities [facility] Diagnosis Acute right-sided low back pain with right-sided sciatica- Primary Spinal stenosis of lumbar region with neurogenic claudication Spinal stenosis, lumbar region, with neurogenic claudication [facility] Diagnosis PVD (peripheral vascular disease) ([facility])- Primary Peripheral vascular disease, unspecified Aortoiliac occlusive disease ([facility]) Other arterial embolism and thrombosis of abdominal aorta Open wound of fourth toe of right foot, initial encounter Atherosclerosis of aorta ([facility]) Atherosclerosis of aorta Diminished pulses in lower extremity Other symptoms involving cardiovascular system Acute right-sided low back pain with right-sided sciatica Spinal stenosis of lumbar region with neurogenic claudication Spinal stenosis, lumbar region, with neurogenic claudication [facility] Diagnosis Acute right-sided low back pain with right-sided sciatica- Primary Spinal stenosis of lumbar region with neurogenic claudication Spinal stenosis, lumbar region, with neurogenic claudication Acute right-sided low back pain with right-sided sciatica Spinal stenosis of lumbar region with neurogenic claudication Spinal stenosis, lumbar region, with neurogenic claudication [facility] Diagnosis Open wound of fourth toe of right foot, initial encounter- Primary S/P AKA (above knee amputation), left ([facility]) PVD (peripheral vascular disease) ([facility]) Peripheral vascular disease, unspecified Acute right-sided low back pain with right-sided sciatica Spinal stenosis of lumbar region with neurogenic claudication Spinal stenosis, lumbar region, with neurogenic claudication [facility] Diagnosis Non-pressure chronic ulcer of other part of right foot with unspecified severity ([facility])- Primary Type 2 diabetes mellitus with foot ulcer (CODE) ([facility]) Peripheral vascular disease, unspecified ([facility]) Peripheral vascular disease, unspecified Abnormal radiographic examination Other nonspecific (abnormal) findings on radiological and other examinations of body structure Acute right-sided low back pain with right-sided sciatica Spinal stenosis of lumbar region with neurogenic claudication Spinal stenosis, lumbar region, with neurogenic claudication [facility] Diagnosis Non-pressure chronic ulcer of other part of right foot with unspecified severity ([facility]) Abnormal radiographic examination Other nonspecific (abnormal) findings on radiological and other examinations of body structure Acute right-sided low back pain with right-sided sciatica Spinal stenosis of lumbar region with neurogenic claudication Spinal stenosis, lumbar region, with neurogenic claudication [facility] Diagnosis Encounter for immunization- Primary Need for other specified prophylactic vaccination against single bacterial disease Tachycardia Tachycardia, unspecified HFrEF (heart failure with reduced ejection fraction) ([facility]) Heart failure, unspecified Peripheral vascular disease ([facility]) Peripheral vascular disease, unspecified 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 ([facility]) Abnormal EKG Nonspecific abnormal electrocardiogram (ECG) (EKG) Acute right-sided low back pain with right-sided sciatica Spinal stenosis of lumbar region with neurogenic claudication Spinal stenosis, lumbar region, with neurogenic claudication [facility] Diagnosis Acute right-sided low back pain with right-sided sciatica Spinal stenosis of lumbar region with neurogenic claudication Spinal stenosis, lumbar region, with neurogenic claudication Acute right-sided low back pain with right-sided sciatica Spinal stenosis of lumbar region with neurogenic claudication Spinal stenosis, lumbar region, with neurogenic claudication [facility] Diagnosis Non-pressure chronic ulcer of other part of right foot with unspecified severity ([facility])- Primary Type 2 diabetes mellitus with foot ulcer (CODE) ([facility]) Peripheral vascular disease, unspecified ([facility]) Peripheral vascular disease, unspecified [facility] Diagnosis Non-pressure chronic ulcer of other part of right foot with unspecified severity ([facility])- Primary Type 2 diabetes mellitus with foot ulcer (CODE) ([facility]) Peripheral vascular disease, unspecified ([facility]) Peripheral vascular disease, unspecified Acute right-sided low back pain with right-sided sciatica Spinal stenosis of lumbar region with neurogenic claudication Spinal stenosis, lumbar region, with neurogenic claudication [facility] Diagnosis PVD (peripheral vascular disease) ([facility])- Primary Peripheral vascular disease, unspecified S/P AKA (above knee amputation), left (HCC) Acute right-sided low back pain with right-sided sciatica Spinal stenosis of lumbar region with neurogenic claudication Spinal stenosis, lumbar region, with neurogenic claudication [facility] Diagnosis Non-pressure chronic ulcer of other part of right foot with necrosis of bone ([facility])- Primary Gangrene of toe of right foot (HCC) Type 2 diabetes mellitus with foot ulcer (CODE) ([facility]) Peripheral vascular disease, unspecified (HCC) Peripheral vascular disease, unspecified Acute right-sided low back pain with right-sided sciatica Spinal stenosis of lumbar region with neurogenic claudication Spinal stenosis, lumbar region, with neurogenic claudication [facility] Diagnosis Aortoiliac occlusive disease ([facility])- Primary Other arterial embolism and thrombosis of abdominal aorta Gangrene of right foot ([facility]) S/P AKA (above knee amputation) bilateral ([facility]) Lower limb amputation, above knee Coronary arteriosclerosis Coronary atherosclerosis of unspecified type of vessel, mentasta or graft PAD (peripheral artery disease) ([facility]) Peripheral vascular disease, unspecified Postoperative pain Other acute postoperative pain Chronic bronchitis, unspecified chronic bronchitis type ([facility]) Malnutrition of moderate degree (HCC) Malnutrition of moderate degree HFrEF (heart failure with reduced ejection fraction) ([facility]) Heart failure, unspecified Type 2 diabetes mellitus with diabetic peripheral angiopathy without gangrene, with long-term current use of insulin ([facility]) 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 ([facility]) Abnormality of gait Falling episodes Lack of coordination [facility] Diagnosis Acute right-sided low back pain with right-sided sciatica Spinal stenosis of lumbar region with neurogenic claudication Spinal stenosis, lumbar region, with neurogenic claudication [facility] Diagnosis PVD (peripheral vascular disease) ([facility])- Primary Peripheral vascular disease, unspecified S/P AKA (above knee amputation), right (HCC) Hx of AKA (above knee amputation), left ([facility]CC) [facility] Diagnosis S/P AKA (above knee amputation), right (HCC)- Primary Hx of AKA (above knee amputation), left (HCC) [facility] Diagnosis Aortoiliac occlusive disease (HCC)- Primary Other arterial embolism and thrombosis of abdominal aorta S/P AKA (above knee amputation) bilateral (HCC) Lower limb amputation, above knee [facility] Diagnosis Depressive disorder Depressive disorder, not elsewhere classified [facility] Diagnosis Type 2 diabetes mellitus with diabetic peripheral angiopathy without gangrene, with long-term current use of insulin ([facility]) [facility] encounter [facility] Diagnosis Mixed hyperlipidemia [facility] in [facility] Diagnosis Mixed hyperlipidemia [facility]* Diagnosis Type 2 diabetes mellitus ([facility]) Type II or unspecified type diabetes mellitus without mention of complication, not stated as uncontrolled Hyperlipidemia Other and unspecified hyperlipidemia [facility] Diagnosis Type 2 diabetes mellitus with diabetic peripheral angiopathy without gangrene, with long-term current use of insulin ([facility])- Primary Spinal stenosis of lumbar region with neurogenic claudication Spinal stenosis, lumbar region, with neurogenic claudication PAD (peripheral artery disease) ([facility]) Peripheral vascular disease, unspecified Status post above-knee amputation of both lower extremities ([facility]) HFrEF (heart failure with reduced ejection fraction) ([facility]) Heart failure, unspecified Coronary arteriosclerosis Coronary atherosclerosis of unspecified type of vessel, mentasta or graft [facility] Diagnosis Carotid stenosis, asymptomatic, bilateral- Primary [facility] Diagnosis Hyperkalemia- Primary Hyperpotassemia [facility]* Diagnosis Carotid stenosis, asymptomatic, bilateral- Primary History of bilateral carotid endarterectomy History of above-knee amputation of both lower extremities (HCC) Amputation stump pain (HCC) (HCC) Other amputation stump complication Aortoiliac occlusive disease ([facility]) Other arterial embolism and thrombosis of abdominal aorta [facility] Diagnosis Type 2 diabetes mellitus with diabetic peripheral angiopathy without gangrene, with long-term current use of insulin ([facility])- Primary Encounter for immunization Need for other specified prophylactic vaccination against single bacterial disease [facility]* Diagnosis Type 2 diabetes mellitus with diabetic peripheral angiopathy without gangrene, with long-term current use of insulin ([facility]) HFrEF (heart failure with reduced ejection fraction) ([facility])- Primary Heart failure, unspecified Atherosclerosis of mentasta coronary artery of mentasta heart without angina pectoris Mixed hyperlipidemia PAD (peripheral artery disease) ([facility]) Peripheral vascular disease, unspecified Hypertension Unspecified essential hypertension S/P vascular bypass Other postprocedural status History of CVA (cerebrovascular accident) Transient ischemic attack (TIA), and cerebral infarction without residual deficits Type 2 diabetes mellitus with diabetic neuropathy, with long-term current use of insulin ([facility]) [facility] Diagnosis HFrEF (heart failure with reduced ejection fraction) ([facility])- Primary Heart failure, unspecified Atherosclerosis of mentasta coronary artery of mentasta heart without angina pectoris Mixed hyperlipidemia PAD (peripheral artery disease) ([facility]) Peripheral vascular disease, unspecified Hypertension Unspecified essential hypertension S/P vascular bypass Other postprocedural status History of CVA (cerebrovascular accident) Transient ischemic attack (TIA), and cerebral infarction without residual deficits Type 2 diabetes mellitus with diabetic neuropathy, with long-term current use of insulin ([facility]) [facility] Diagnosis Neuropathic pain- Primary Neuralgia, neuritis, and radiculitis, unspecified [facility] Diagnosis HFrEF (heart failure with reduced ejection fraction) ([facility]) Heart failure, unspecified Atherosclerosis of mentasta coronary artery of mentasta heart without angina pectoris Mixed hyperlipidemia PAD (peripheral artery disease) ([facility]) Peripheral vascular disease, unspecified Hypertension Unspecified essential hypertension [facility] Diagnosis Viral URI with cough- Primary Acute upper respiratory infections of unspecified site Type 2 diabetes mellitus with diabetic peripheral angiopathy without gangrene, with long-term current use of insulin ([facility]) [facility] Diagnosis Neuropathic pain- Primary Neuralgia, neuritis, and radiculitis, unspecified [facility] Diagnosis Medicare annual wellness visit, subsequent- Primary Routine general medical examination at a health care facility Atherosclerosis of mentasta coronary artery of mentasta heart without angina pectoris Mixed hyperlipidemia Type 2 diabetes mellitus with diabetic neuropathy, with long-term current use of insulin ([facility]) PAD (peripheral artery disease) ([facility]) Peripheral vascular disease, unspecified S/P AKA (above knee amputation), right ([facility]) S/P AKA (above knee amputation) unilateral, left (HCC) [facility] Diagnosis Hyperkalemia- Primary Hyperpotassemia Neuropathic pain Neuralgia, neuritis, and radiculitis, unspecified [facility] Diagnosis Hyperkalemia- Primary Hyperpotassemia Neuropathic pain Neuralgia, neuritis, and radiculitis, unspecified [facility] Diagnosis Hyperkalemia- Primary Hyperpotassemia Hospital discharge follow-up Other follow-up examination Type 2 diabetes mellitus with diabetic peripheral angiopathy without gangrene, with long-term current use of insulin (HCC) HFrEF (heart failure with reduced ejection fraction) ([facility]) Heart failure, unspecified Neuropathic pain Neuralgia, neuritis, and radiculitis, unspecified [facility] Diagnosis Hospital discharge follow-up- Primary Other follow-up examination History of non-ST elevation myocardial infarction (NSTEMI) Old myocardial infarction Superficial thrombophlebitis of left upper extremity Hypertension Unspecified essential hypertension Type 2 diabetes mellitus with diabetic neuropathy, with long-term current use of insulin ([facility]) PVD (peripheral vascular disease) (HCC) Peripheral vascular disease, unspecified Stage 3a chronic kidney disease (HCC) Neuropathic pain Neuralgia, neuritis, and radiculitis, unspecified [facility] Diagnosis Type 2 diabetes mellitus with diabetic peripheral angiopathy without gangrene, with long-term current use of insulin ([facility]) Neuropathic pain Neuralgia, neuritis, and radiculitis, unspecified documented in this encounter [facility] note* Diagnosis Coronary artery disease involving mentasta coronary artery of mentasta heart without angina pectoris- Primary S/P coronary artery stent placement Postsurgical percutaneous transluminal coronary angioplasty status Primary hypertension Unspecified essential hypertension Mixed hyperlipidemia Type 2 diabetes mellitus with diabetic neuropathy, with long-term current use of insulin (HCC) PVD (peripheral vascular disease) (HCC) Peripheral vascular disease, unspecified [facility] Diagnosis Type 2 diabetes mellitus with diabetic peripheral angiopathy without gangrene, with long-term current use of insulin ([facility]) documented in this encounter [facility] note* Diagnosis Type 2 diabetes mellitus with diabetic peripheral angiopathy without gangrene, with long-term current use of insulin ([facility])- Primary Coronary arteriosclerosis Coronary atherosclerosis of unspecified type of vessel, mentasta or graft Mixed hyperlipidemia Primary hypertension Unspecified essential hypertension Anemia, unspecified type [facility] Diagnosis Coronary arteriosclerosis- Primary Coronary atherosclerosis of unspecified type of vessel, mentasta or graft Type 2 diabetes mellitus with diabetic peripheral angiopathy without gangrene, with long-term current use of insulin ([facility]) Chronic anticoagulation Long-term (current) use of anticoagulants S/P AKA (above knee amputation) bilateral ([facility]) Lower limb amputation, above knee Mixed hyperlipidemia [facility] Diagnosis HFrEF (heart failure with reduced ejection fraction) ([facility])- Primary Heart failure, unspecified CAD S/P percutaneous coronary angioplasty Coronary atherosclerosis of mentasta coronary artery Mixed hyperlipidemia Peripheral artery disease Peripheral vascular disease, unspecified Hypertension Unspecified essential hypertension S/P vascular bypass Other postprocedural status History of CVA (cerebrovascular accident) Transient ischemic attack (TIA), and cerebral infarction without residual deficits Type 2 diabetes mellitus with diabetic neuropathy, with long-term current use of insulin ([facility]) Coronary arteriosclerosis Coronary atherosclerosis of unspecified type of vessel, mentasta or graft [facility] Diagnosis Type 2 diabetes mellitus with diabetic neuropathy, with long-term current use of insulin ([facility])- Primary PAD (peripheral artery disease) Peripheral vascular disease, unspecified [facility] Diagnosis Neuropathic pain- Primary Neuralgia, neuritis, and radiculitis, unspecified Neuropathic pain Neuralgia, neuritis, and radiculitis, unspecified documented in this encounter [facility] note* Diagnosis Preoperative examination- Primary Preoperative examination, unspecified Obesity, Class III, BMI >= 40 Morbid obesity History of CVA (cerebrovascular accident) Transient ischemic attack (TIA), and cerebral infarction without residual deficits Coronary artery disease involving mentasta coronary artery of mentasta heart, unspecified whether angina present HFrEF (heart failure with reduced ejection fraction) ([facility]) Heart failure, unspecified Primary hypertension Unspecified essential hypertension Type 2 diabetes mellitus with diabetic neuropathy, with long-term current use of insulin ([facility]) Peripheral artery disease Peripheral vascular disease, unspecified Anemia, unspecified type Neuropathic pain Neuralgia, neuritis, and radiculitis, unspecified * Assessment & Plan Note - Mel Aponte APRN.CNP - 03/29/2025 10:44 AM EDT Associated Problem(s): Anemia Hemoglobin (g/dL) Date Value 02/26/2025 8.9 10/04/2014 15.0 HGB (g/dL) Date Value 02/21/2020 13.5 Hematocrit (%) Date Value 02/26/2025 28.8 02/21/2020 41.7 HCT (%) Date Value 10/07/2023 29.6 05/26/2022 32.1 WBC Date Value 02/26/2025 7.76 k/uL 05/26/2022 8.0 K/uL Check CBC today for Hgb 8.9 02/26/2025 * Assessment & Plan Note - Mel Aponte APRN.CNP - 03/29/2025 10:36 AM EDT Associated Problem(s): Obesity, Class III, BMI >= 40 BMI 54.5 Bilateral AKA Weight is self-reported. Unable to be weighed. * Assessment & Plan Note - Mel Aponte APRN.CNP - 03/28/2025 7:50 PM EDT Associated Problem(s): Peripheral artery disease Medical management per vascular surgery Per vascular note: Attempted ABF -- 2016 DJW - R Ax- fem / R fem- L fem bypass with B [employer]ESS [employer] endart -- 2016 DJW - L groin exploration, LLE graft thrombectomy -- 2016 JZ - L groin exploration with thrombectomy of fem-fem bypass -- 2017 DJW - L ax- profunda to R profunda bypass w/ redo groins -- 2021 LM - L AKA -- 2021 CB - R AKA -- 2022 LM - L CEA -- 2000 DJW - R CEA -- 2012 DJW * Assessment & Plan Note - Mel Aponte APRN.CNP - 03/28/2025 7:49 PM EDT Associated Problem(s): Type 2 diabetes mellitus with diabetic neuropathy, with long-term current use of insulin (HCC) Rx: Insulin Managed by primary Continuous BGM BS today 132 Advised to contact prescribing provider for preop instructions Hemoglobin A1C (%) Date Value 02/21/2020 11.6 Hemoglobin A1C (POCT) (%) Date Value 03/05/2025 7.8 * Assessment & Plan Note - Mel Aponte APRN.CNP - 03/28/2025 7:46 PM EDT Associated Problem(s): Hypertension 02/23/2025 hospitalization for chest pain and hypertension. Systolic blood pressure 220s Has seen primary and cardiology posthospitalization. * Assessment & Plan Note - Mel Aponte APRN.CNP - 03/28/2025 7:42 PM EDT Associated Problem(s): HFrEF (heart failure with reduced ejection fraction) (HCC) Stable Managed by [facility] Current Rx: Imdur, hydralazine, carvedilol, Procardia, spironolactone Last office visit with cardiology 02/28/2025. EF 40% per PET scan 10/25/2024 * Assessment & Plan Note - Mel Aponte APRN.CNP - 03/28/2025 7:38 PM EDT Associated Problem(s): Coronary artery disease involving mentasta coronary artery of mentasta heart [facility] STEMI September 2024 S/p PCI to RCA 10/30/2024 LHC: 50% narrowing of the left main, LAD with multiple lesions, circumflex with severe disease in the RCA with severe calcified disease. He also had in-stent stenosis. He was not recommended for CABG, was recommended for medical treatment. Managed by [facility]. Last office visit 02/28/2025 Denies chest pain or use of sublingual nitroglycerin since February 2025 ED visit for chest pain and hypertension Rx: Isosorbide, carvedilol, hydralazine, nifedipine, aspirin, Plavix He is on triple antiplatelet therapy -aspirin 81 mg, Plavix 75 mg, Xarelto - for cardiac stents than 6 months ago and known cardiovascular disease. Advised to contact cardiology for preoperative anticoagulation instructions. Patient states surgeon is aware he is on 3 blood thinning medications and states he was told by surgeon he was okay to continue all 3 for surgery. Cardiac optimization requested by surgeon pending * Assessment & Plan Note - Mel Aponte APRN.NATHALY - 03/28/2025 7:35 PM EDT Associated Problem(s): History of CVA (cerebrovascular accident) 2008 Stable Neuro deficits: None Managed by: Primary ASA, Plavix, Xarelto * Assessment & Plan Note - Mel Aponte APRN.CNP - 03/28/2025 7:33 PM EDT Associated Problem(s): Preoperative examination See A/P for medical conditions which may affect radha-operative course [facility]* Diagnosis Preoperative examination- Primary Preoperative examination, unspecified Obesity, Class III, BMI >= 40 Morbid obesity History of CVA (cerebrovascular accident) Transient ischemic attack (TIA), and cerebral infarction without residual deficits Coronary artery disease involving mentasta coronary artery of mentasta heart, unspecified whether angina present HFrEF (heart failure with reduced ejection fraction) (HCC) Heart failure, unspecified Primary hypertension Unspecified essential hypertension Type 2 diabetes mellitus with diabetic neuropathy, with long-term current use of insulin (HCC) Peripheral artery disease Peripheral vascular disease, unspecified Anemia, unspecified type Carotid stenosis, asymptomatic, bilateral- Primary History of bilateral carotid endarterectomy documented in this encounter [facility] for referral (narrative)* - Pending Review Specialty Diagnoses / Procedures Referred By Contac t Referred To Contact Diagnoses Acute right-sided low back pain with right-sided sciatica Procedures CONSULT TO PHYSICAL THERAPY Davin August PA-C [address] [place] [address] Referral ID Status Reason Start Date Expiration Date V isits Requested Visits Authorized [id number] Pending Review 01/01/2022 04/01/2022 1 1 [facility] for referral (narrative)* Diagnostic Procedure Only (Routine) - Pending Review Specialty Diagnoses / Procedures Referred By Contac t Referred To Contact US IMAGING Diagnoses PVD (peripheral vascular disease) (HCC) S/P AKA (above knee amputation), left (HCC) S/P vascular bypass Procedures US ARTERIAL PVR LOWER NON-INVASIVE PHYSIOLOGIC STUDY EXTREMITY 3 Elizabeth Solis, INEZ.PARK ACTIVITIES COORDINATOR [address] [facility] [address] [place] [address] Us Imaging Referral ID Status Reason Start Date Expiration Date Visits Requested Visits Authorized [id number] Pending Review Auto-Generat ed Referral 12/15/2022 07/17/2023 1 1 [facility] for referral (narrative)* Diagnostic Procedure Only (Routine) - Closed Specialty Diagnoses / Procedures Referred By Contac t Referred To Contact US IMAGING Diagnoses Bilateral carotid artery stenosis History of bilateral carotid endarterectomy Procedures US CAROTID BILAT Elizabeth Ball APRN.PARK ACTIVITIES COORDINATOR [address] [place] [address] Us Imaging Referral ID Status Reason Start Date Expiration Date V isits Requested Visits Authorized [id number] Closed Auto-Generate d Referral 08/24/2022 11/01/2022 1 1 [facility] for referral (narrative)* Diagnostic Procedure Only (Routine) - Pending Review Specialty Diagnoses / Procedures Referred By Contac t Referred To Contact US IMAGING Diagnoses PVD (peripheral vascular disease) (HCC) Procedures US ARTERIAL PVR LOWER NON-INVASIVE PHYSIOLOGIC STUDY EXTREMITY 3 Anne Ferraro MD [address] [facility] [address] [place] [address] Us Imaging Referral ID Status Reason Start Date Expiration Date Visits Requested Visits Authorized [id number] Pending Review Auto-Generat ed Referral 06/17/2023 01/14/2024 1 1 [facility] for referral (narrative)* Outpatient Procedure (Routine) - Pending Review Specialty Diagnoses / Procedures Referred By Contac t Referred To Contact [facility] Diagnoses Positive FIT (fecal immunochemical test) History of colonic polyps Procedures COLONOSCOPY DIAGNOSTIC COLONOSCOPY FLX DX W/COLLJ SPEC WHEN PFRMD Jessica Patel PA-C [address] [place] [address] [facility] [address] [place] [address] Referral ID Status Reason Start Date Expiration Date Visits Requested Visits Authorized [id number] Pending Review Auto-Generat ed Referral 01/26/2023 01/27/2024 1 1 [facility] for referral (narrative)* Outpatient Procedure (Routine) - Closed Specialty Diagnoses / Procedures Referred By Contac t Referred To Contact Diagnoses Positive FIT (fecal immunochemical test) History of colonic polyps Procedures COLONOSCOPY DIAGNOSTIC COLONOSCOPY DIAGNOSTIC COLONOSCOPY FLX DX W/COLLJ SPEC WHEN PFRMD Jessica Patel PA-C [address] [place] [address] Roseline Pearson MD [address] [place] [address] Referral ID Status Reason Start Date Expiration Date V isits Requested Visits Authorized [id number] Closed Auto-Generate d Referral 05/26/2023 08/24/2023 1 1 [facility] for referral (narrative)* Diagnostic Procedure Only (Routine) - Closed Specialty Diagnoses / Procedures Referred By Contac t Referred To Contact XR IMAGING Diagnoses Abnormal radiographic examination Procedures XR FEMUR GENERAL 2V AP/LAT LEFT RADIOLOGIC EXAMINATION FEMUR MINIMUM 2 VIEWS Dylan Martinez MD [address] [place] [address] [place] [address] Referral ID Status Reason Start Date Expiration Date V isits Requested Visits Authorized [id number] Closed Auto-Generate d Referral 07/16/2023 08/14/2024 1 1 * Diagnostic Procedure Only (Routine) - Closed Specialty Diagnoses / Procedures Referred By Contac t Referred To Contact XR IMAGING Diagnoses 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) Procedures XR FOOT GENERAL 3V AP/LAT/OBL RIGHT RADEX FOOT COMPLETE MINIMUM 3 VIEWS Dylan Martinez MD [address] [place] [address] [place] [address] Referral ID Status Reason Start Date Expiration Date V isits Requested Visits Authorized [id number] Closed Auto-Generate d Referral 07/16/2023 08/14/2024 1 1 [facility] for referral (narrative)* Diagnostic Procedure Only (Routine) - New Request Specialty Diagnoses / Procedures Referred By Contac t Referred To Contact US IMAGING Diagnoses Carotid stenosis, asymptomatic, bilateral Procedures US CAROTID BILATERAL Elizabeth Ball APRN.PARK ACTIVITIES COORDINATOR 1 [facility] [address] [place] [address] [place] [address] Referral ID Status Reason Start Date Expiration Date Visits Requested Visits Authorized [id number] New Request Auto-Generat ed Referral 04/03/2024 05/03/2025 1 1 [facility] for referral (narrative)* Outpatient Procedure (Routine) - New Request Specialty Diagnoses / Procedures Referred By Contac t Referred To Contact [facility] [place] Diagnoses HFrEF (heart failure with reduced ejection fraction) (HCC) Atherosclerosis of mentasta coronary artery of mentasta heart without angina pectoris Mixed hyperlipidemia PAD (peripheral artery disease) (HCC) Essential (primary) hypertension Procedures ECHO ECHO TTHRC R-T 2D W/WOM-MODE COMPL SPEC&COLR Eduin Pruitt APRN.PARK ACTIVITIES COORDINATOR [address] [place] [address] [facility] [address] [place] [id number] Referral ID Status Reason Start Date Expiration Date Visits Requested Visits Authorized [id number] New Request Auto-Generat ed Referral 07/12/2025 1 1 [facility] for referral (narrative)* Outpatient Procedure (Routine) - Closed Specialty Diagnoses / Procedures Referred By Contac t Referred To Contact [facility] Diagnoses HFrEF (heart failure with reduced ejection fraction) (HCC) Atherosclerosis of mentasta coronary artery of mentasta heart without angina pectoris Mixed hyperlipidemia PAD (peripheral artery disease) (HCC) Essential (primary) hypertension Procedures ECHO ECHO TTHRC R-T 2D W/WOM-MODE COMPL SPEC&COLR D Eduin Coleman, HEALTH INFORMATION ASSISTANT.PARK ACTIVITIES COORDINATOR [address] [place] [address] Fax: [facility] [address] [place] [address] Referral ID Status Reason Start Date Expiration Date V isits Requested Visits Authorized [id number] Closed Auto-Generate d Referral 07/12/2024 07/12/2025 1 1 Electronically signed by Eduin Coleman HEALTH INFORMATION ASSISTANT.PARK ACTIVITIES COORDINATOR at 07/19/2024 11:47 AM EDT [facility] for visit Narrative* Auth/Cert Specialty Diagnoses / Procedures Referred By Contac t Referred To Contact Diagnoses Spinal stenosis, unspecified spinal region Procedures NJX DX/THER SBST INTRLMNR LMBR/SAC W/IMG GDN LUMBAR EPIDURAL BLOCK W/INJECTION NON NEUROLYTIC W/IMAGE GUIDANCE [facility] [address] [place] [address] Referral ID Status Reason Start Date Expiration Date Visits Re quested Visits Authorized [id number] 1 1 [facility] for visit Narrative* Diagnostic Procedure Only (Routine) - Closed Specialty Diagnoses / Procedures Referred By Contac t Referred To Contact US IMAGING Diagnoses Bilateral carotid artery stenosis History of bilateral carotid endarterectomy Procedures US CAROTID BILAT Elizabeth Ball, HEALTH INFORMATION ASSISTANT.PARK ACTIVITIES COORDINATOR 1 [facility] [address] [place] [address] Us Imaging Referral ID Status Reason Start Date Expiration Date V isits Requested Visits Authorized [id number] Closed Auto-Generate d Referral 08/24/2022 11/01/2022 1 1 [facility] for visit Narrative* Diagnostic Procedure Only (Urgent) - Authorized Specialty Diagnoses / Procedures Referred By Contac t Referred To Contact [facility] Diagnoses Coronary artery disease involving mentasta coronary artery of mentasta heart without angina pectoris Procedures NM CARDIAC PERF STRESS/PHARM MYOCARDIAL SPECT MULTIPLE STUDIES Davin Moran MD [address] [place] [address] Fax: [facility] [address] [place] [address] Referral ID Status Reason Start Date Expiration Date Visits Requested Visits Authorized [id number] Authorized Auto-Generat ed Referral 04/02/2022 04/18/2023 1 1 [facility] for visit Narrative* Diagnostic Procedure Only (Urgent) - Closed Specialty Diagnoses / Procedures Referred By Contac t Referred To Contact [facility] Diagnoses Coronary artery disease involving mentasta coronary artery of mentasta heart without angina pectoris Procedures NM CARDIAC PERF STRESS/PHARM MYOCARDIAL SPECT MULTIPLE STUDIES Davin Moran MD [address] [address] [facility] [address] [place] [address] Referral ID Status Reason Start Date Expiration Date V isits Requested Visits Authorized [id number] Closed Auto-Generate d Referral 04/02/2022 04/18/2023 1 1 [facility] for visit Narrative* Outpatient Procedure (Routine) - Closed Specialty Diagnoses / Procedures Referred By Contac t Referred To Contact Diagnoses Positive FIT (fecal immunochemical test) History of colonic polyps Procedures COLONOSCOPY DIAGNOSTIC COLONOSCOPY DIAGNOSTIC COLONOSCOPY FLX DX W/COLLJ SPEC WHEN PFRMD Jessica Patel PA-C [address] [place] [address] Roseline Pearson MD [address] [place] [address] Referral ID Status Reason Start Date Expiration Date V isits Requested Visits Authorized [id number] Closed Auto-Generate d Referral 05/26/2023 08/24/2023 1 1 [facility] for visit Narrative* Diagnostic Procedure Only (Routine) - Closed Specialty Diagnoses / Procedures Referred By Contac t Referred To Contact XR IMAGING Diagnoses Abnormal radiographic examination Procedures XR FEMUR GENERAL 2V AP/LAT LEFT RADIOLOGIC EXAMINATION FEMUR MINIMUM 2 VIEWS Dylan Martinez MD [address] [place] [address] [place] [address] Referral ID Status Reason Start Date Expiration Date V isits Requested Visits Authorized [id number] Closed Auto-Generate d Referral 07/16/2023 08/14/2024 1 1 [facility] for visit Narrative* Diagnostic Procedure Only (Routine) - Closed Specialty Diagnoses / Procedures Referred By Contac t Referred To Contact US IMAGING Diagnoses Carotid stenosis, asymptomatic, bilateral Procedures US CAROTID BILATERAL Elizabeth Ball, HEALTH INFORMATION ASSISTANT.PARK ACTIVITIES COORDINATOR [address] [facility] [address] [place] [address] [place] [address] Referral ID Status Reason Start Date Expiration Date V isits Requested Visits Authorized [id number] Closed Auto-Generate d Referral 04/03/2024 05/03/2025 1 1 [facility] for visit Narrative* Outpatient Procedure (Routine) - Closed Specialty Diagnoses / Procedures Referred By Contac t Referred To Contact [facility] Diagnoses HFrEF (heart failure with reduced ejection fraction) (HCC) Atherosclerosis of mentasta coronary artery of mentasta heart without angina pectoris Mixed hyperlipidemia PAD (peripheral artery disease) (HCC) Essential (primary) hypertension Procedures ECHO ECHO TTHRC R-T 2D W/WOM-MODE COMPL SPEC&COLR D Eduin Coleman, HEALTH INFORMATION ASSISTANT.PARK ACTIVITIES COORDINATOR [address] [place] [address] [facility] [address] [place] [address] Referral ID Status Reason Start Date Expiration Date V isits Requested Visits Authorized [id number] Closed Auto-Generate d Referral 07/12/2024 07/12/2025 1 1 [facility] Summary Purpose Family History No Family History Records FoundNo Family History Records FoundNo Family History Records FoundNo Family History Records FoundNo Family History Records FoundNo Family History Records Found Advance Directives Date Activated Date Inactivated Comments 02/23/2025 10:00 PM 02/26/2025 6:20 PM Question Answer Comments Full Code Order Discussed With: Patient Date Activated Date Inactivated Comments 10/19/2024 12:26 AM 11/04/2024 6:09 PM Question Answer Comments Full Code Order Discussed With: Patient Date Activated Date Inactivated Comments 10/03/2024 6:47 PM 10/06/2024 4:59 PM Question Answer Comments Full Code Order Discussed With: Patient Date Activated Date Inactivated Comments 10/19/2024 12:26 AM 11/04/2024 6:09 PM Date Activated Date Inactivated Comments 10/03/2024 6:47 PM 10/06/2024 4:59 PM Date Activated Date Inactivated Comments 10/03/2024 6:47 PM 10/06/2024 4:59 PM Documents on File Type Date Recorded Patient Fish And Wildlife Warden Expl anation Advance Directive(s) 04/29/2018 7:23 AM Documents on File Type Date Recorded Patient Fish And Wildlife Warden Expl anation Advance Directive(s) 04/29/2018 7:23 AM Documents on File Type Date Recorded Patient Fish And Wildlife Warden Expl anation Advance Directive(s) 01/06/2022 6:35 PM Advance Directive(s) 04/29/2018 7:23 AM Documents on File Type Date Recorded Patient Fish And Wildlife Warden Expl anation Advance Directive(s) 01/06/2022 6:35 PM Advance Directive(s) 04/29/2018 7:23 AM Documents on File Type Date Recorded Patient Fish And Wildlife Warden Expl anation Advance Directive(s) 02/28/2022 9:57 PM Advance Directive(s) 01/06/2022 6:35 PM Advance Directive(s) 04/29/2018 7:23 AM Documents on File Type Date Recorded Patient Fish And Wildlife Warden Expl anation Advance Directive(s) 03/06/2022 12:57 PM Advance Directive(s) 02/28/2022 9:57 PM Advance Directive(s) 01/06/2022 6:35 PM Advance Directive(s) 04/29/2018 7:23 AM Documents on File Type Date Recorded Patient Fish And Wildlife Warden Expl anation Advance Directive(s) 03/06/2022 12:57 PM Advance Directive(s) 02/28/2022 9:57 PM Advance Directive(s) 01/06/2022 6:35 PM Advance Directive(s) 04/29/2018 7:23 AM Date Activated Date Inactivated Comments 10/03/2024 6:47 PM Date Activated Date Inactivated Comments 10/19/2024 12:26 AM 11/04/2024 6:09 PM Question Answer Comments Full Code Order Discussed With: Patient Date Activated Date Inactivated Comments 10/03/2024 6:47 PM 10/06/2024 4:59 PM Question Answer Comments Full Code Order Discussed With: Patient Date Activated Date Inactivated Comments 04/24/2025 1:14 PM Question Answer Comments DNR Order Discussed With: Surrogate Decision Da er Surrogate Decision Maker Name: Mrs. Hathaway Surrogate Decision Maker Relationship: Spouse Date Activated Date Inactivated Comments 04/05/2025 7:31 PM 04/24/2025 1:14 PM Date Activated Date Inactivated Comments 02/23/2025 10:00 PM 02/26/2025 6:20 PM Date Activated Date Inactivated Comments 10/19/2024 12:26 AM 11/04/2024 6:09 PM Question Answer Comments Full Code Order Discussed With: Patient Date Activated Date Inactivated Comments 10/03/2024 6:47 PM 10/06/2024 4:59 PM Question Answer Comments Full Code Order Discussed With: Patient Date Activated Date Inactivated Comments 04/24/2025 1:14 PM 05/02/2025 8:37 PM Question Answer Comments DNR Order Discussed With: Surrogate Decision Da er Surrogate Decision Maker Name: Mrs. Hathaway Surrogate Decision Maker Relationship: Spouse Date Activated Date Inactivated Comments 04/05/2025 7:31 PM 04/24/2025 1:14 PM Date Activated Date Inactivated Comments 02/23/2025 10:00 PM 02/26/2025 6:20 PM Question Answer Comments Full Code Order Discussed With: Patient Date Activated Date Inactivated Comments 10/19/2024 12:26 AM 11/04/2024 6:09 PM Question Answer Comments Full Code Order Discussed With: Patient Date Activated Date Inactivated Comments 10/03/2024 6:47 PM 10/06/2024 4:59 PM Question Answer Comments Full Code Order Discussed With: Patient Date Activated Date Inactivated Comments 04/24/2025 1:14 PM 05/02/2025 8:37 PM Reason for Referral Specialty Diagnoses / Procedures Referred By Contac t Referred To Contact Diagnoses Acute right-sided low back pain with right-sided sciatica Procedures CONSULT TO MUSC/SPINE/OCC MED OFFICE/OUTPATIENT [facility] 60-74 MINUTES Paulina Severino MD [address] [facility] [address] [address] Referral ID Status Reason Start Date Expiration Date Visits Requested Visits Authorized [id number] Pending Review PCP Requested Referral 12/22/2021 12/22/2022 1 1 Specialty Diagnoses / Procedures Referred By Contac t Referred To Contact MR IMAGING Diagnoses Spinal stenosis of lumbar region with neurogenic claudication Procedures MRI LUMBAR SPINE WO IVCON MRI SPINAL CANAL LUMBAR W/O CONTRAST MATERIAL Davin August, PADonitaC [address] [place] [address] Mr Imaging Referral ID Status Reason Start Date Expiration Date Visits Requested Visits Authorized [id number] Pending Review Auto-Generat ed Referral 02/20/2022 03/22/2023 1 1 Specialty Diagnoses / Procedures Referred By Contac t Referred To Contact Diagnoses Spinal stenosis of lumbar region with neurogenic claudication Acute right-sided low back pain with right-sided sciatica Procedures CONSULT TO SPINE INTERVENTION Davin August PA-C [address] [place] [address] Referral ID Status Reason Start Date Expiration Date Visits Requested Visits Authorized [id number] Pending Review PCP Requested Referral 03/17/2022 06/15/2022 3 3 Specialty Diagnoses / Procedures Referred By Contac t Referred To Contact Pain Management Diagnoses Acute midline low back pain, unspecified whether sciatica present Procedures CONSULT TO PAIN MGT Landen Milner PA-C [address] [place] [address] Referral ID Status Reason Start Date Expiration Date Visits Requested Visits Authorized [id number] Ref Not Required PCP Requested Referral 03/30/2022 06/28/2022 3 3 Specialty Diagnoses / Procedures Referred By Contac t Referred To Contact MR IMAGING Diagnoses Spinal stenosis of lumbar region with neurogenic claudication Procedures MRI LUMBAR SPINE WO IVCON MRI SPINAL CANAL LUMBAR W/O CONTRAST MATERIAL Malgorzata Kirkpatrick MD [address] [place] [address] Mr Imaging Referral ID Status Reason Start Date Expiration Date Visits Requested Visits Authorized [id number] Pending Review Auto-Generat ed Referral 04/14/2022 05/14/2023 1 1 Referral ID Status Reason Start Date Expiration Date V isits Requested Visits Authorized [id number] Closed Auto-Generate d Referral 04/14/2022 05/14/2023 1 1 Specialty Diagnoses / Procedures Referred By Contac t Referred To Contact CT IMAGING Diagnoses Disorder of artery or arteriole (HCC) Procedures CTA CHEST (GATED) W IVCON CT ANGIOGRAPHY CHEST W/CONTRAST/NONCONTRAST Christi Jones MD [address] [facility] [address] [place] [address] Ct Imaging Referral ID Status Reason Start Date Expiration Date Visits Requested Visits Authorized [id number] Authorized Auto-Generat ed Referral 04/21/2022 05/21/2023 1 1 Specialty Diagnoses / Procedures Referred By Contac t Referred To Contact CT IMAGING Diagnoses Atherosclerosis of aorta (HCC) Peripheral vascular disease (HCC) Diminished pulses in lower extremity Procedures CTA ABD/PEL LOWER EXTREM W IVCON CTA ABDL AORTA&BI ILIOFEM W/CONTRAST&POSTP Christi Jones MD [address] [facility] [address] [place] [address] Ct Imaging Referral ID Status Reason Start Date Expiration Date Visits Requested Visits Authorized [id number] Authorized Auto-Generat ed Referral 04/21/2022 05/21/2023 1 1 Referral ID Status Reason Start Date Expiration Date V isits Requested Visits Authorized [id number] Closed Auto-Generate d Referral 04/21/2022 05/21/2023 1 1 Referral ID Status Reason Start Date Expiration Date V isits Requested Visits Authorized [id number] Closed Auto-Generate d Referral 04/21/2022 05/21/2023 1 1 Specialty Diagnoses / Procedures Referred By Contac t Referred To Contact Diagnoses S/P AKA (above knee amputation), left (HCC) Procedures CONSULT TO PHYSICAL THERAPY (AG) Elizabeth Ball, INEZ.PARK ACTIVITIES COORDINATOR 1 [facility] [address] [place] [id number] Referral ID Status Reason Start Date Expiration Date Visits Requested Visits Authorized [id number] Ref Not Required PCP Requested Referral 10/23/2022 01/21/2023 1 1 Specialty Diagnoses / Procedures Referred By Contac t Referred To Contact [facility] Diagnoses Difficulty walking Weakness of both lower extremities Procedures PT REHAB FOLLOW UP ORDER THERAPEUTIC EXERCISES RE, EA 15 MIN. Kath Horton, PT [address] [place] [address] [facility] [address] [place] [address] Referral ID Status Reason Start Date Expiration Date Visits Requested Visits Authorized [id number] Pending Review PCP Requested Referral Auto-Generate d Referral 11/03/2022 02/01/2023 1 1 Referral ID Status Reason Start Date Expiration Date Visits Requested Visits Authorized [id number] Pending Review PCP Requested Referral Auto-Generate d Referral 12/01/2022 03/01/2023 1 1 Specialty Diagnoses / Procedures Referred By Contac t Referred To Contact Gastroenterology Diagnoses Occult blood positive stool Procedures CONSULT TO GASTROENTEROLOGY OFFICE/OUTPATIENT [facility] 60-74 MINUTES Paulina Severino MD [address] [place] [address] [place] [address] Referral ID Status Reason Start Date Expiration Date Visits Requested Visits Authorized [id number] Pending Review PCP Requested Referral 12/07/2022 12/07/2023 1 1 Referral ID Status Reason Start Date Expiration Date Visits Requested Visits Authorized [id number] Pending Review PCP Requested Referral Auto-Generate d Referral 01/20/2023 04/20/2023 1 1 Referral ID Status Reason Start Date Expiration Date Visits Requested Visits Authorized [id number] Pending Review PCP Requested Referral Auto-Generate d Referral 03/04/2023 06/02/2023 1 1 Referral ID Status Reason Start Date Expiration Date Visits Requested Visits Authorized [id number] Pending Review PCP Requested Referral Auto-Generate d Referral 04/01/2023 06/30/2023 1 1 Specialty Diagnoses / Procedures Referred By Contac t Referred To Contact Neurology Diagnoses Acute right-sided low back pain with right-sided sciatica Spinal stenosis of lumbar region with neurogenic claudication Procedures CONSULT TO NEUROLOGY OFFICE/OUTPATIENT [facility] 60-74 MINUTES Davin August PA-C [address] [place] [id number] Referral ID Status Reason Start Date Expiration Date Visits Requested Visits Authorized [id number] Pending Review PCP Requested Referral 06/09/2023 09/07/2023 1 1 Specialty Diagnoses / Procedures Referred By Contac t Referred To Contact CT IMAGING Diagnoses PVD (peripheral vascular disease) (HCC) Aortoiliac occlusive disease (HCC) Open wound of fourth toe of right foot, initial encounter Open wound of lesser toe of right foot Atherosclerosis of aorta (HCC) Diminished pulses in lower extremity Procedures CTA ABD/PEL LOWER EXTREM W IVCON CTA ABDL AORTA&BI ILIOFEM W/CONTRAST&POSTP Elizabeth Ball, HEALTH INFORMATION ASSISTANT.PARK ACTIVITIES COORDINATOR [address] [place] [address] Ct Imaging [place] [address] Referral ID Status Reason Start Date Expiration Date Visits Requested Visits Authorized [id number] Authorized Auto-Generat ed Referral 3 07/28/2024 1 1 Specialty Diagnoses / Procedures Referred By Contac t Referred To Contact Diagnoses Open wound of fourth toe of right foot, initial encounter Procedures CONSULT TO WOUND CENTER (AG) Anne Villalpando MD [address] [place] [address] Referral ID Status Reason Start Date Expiration Date Visits Requested Visits Authorized [id number] Ref Not Required PCP Requested Referral 3 10/11/2023 1 1 Specialty Diagnoses / Procedures Referred By Contac t Referred To Contact Cardiology Diagnoses Tachycardia 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) Abnormal EKG Procedures CONSULT TO CARDIOLOGY OFFICE/OUTPATIENT [facility] 60-74 MINUTES Paulina Severino MD [address] [facility] [address] [place] [id number] Referral ID Status Reason Start Date Expiration Date Visits Requested Visits Authorized [id number] Pending Review PCP Requested Referral 3 07/19/2024 1 1 Specialty Diagnoses / Procedures Referred By Contac t Referred To Contact [facility] Diagnoses Tachycardia Procedures ECG COMPLETE ECG ROUTINE ECG W/LEAST 12 LDS W/I&R Paulina Severino MD [address] [facility] [address] [place] [id number] [facility] [address] [place] [address] Referral ID Status Reason Start Date Expiration Date Visits Requested Visits Authorized [id number] Pending Review Auto-Generat ed Referral 3 07/18/2024 1 1 Specialty Diagnoses / Procedures Referred By Contac t Referred To Contact Pain Management Diagnoses PVD (peripheral vascular disease) (HCC) Procedures CONSULT TO PAIN MGT Anne Villalpando MD [address] [place] [address] Referral ID Status Reason Start Date Expiration Date Visits Requested Visits Authorized [id number] Ref Not Required PCP Requested Referral 3 08/10/2024 1 1 Specialty Diagnoses / Procedures Referred By Contac t Referred To Contact Diagnoses Aortoiliac occlusive disease (HCC) S/P AKA (above knee amputation) bilateral (HCC) Procedures CONSULT TO ORTHOTIC/PROSTHETIC Elizabeth Ball, INEZ.PARK ACTIVITIES COORDINATOR [address] [facility] [address] [place] [address] Referral ID Status Reason Start Date Expiration Date V isits Requested Visits Authorized [id number] Ref Not Required 12/23/2023 02/21/2024 1 1 Specialty Diagnoses / Procedures Referred By Contac t Referred To Contact Cardiology Diagnoses HFrEF (heart failure with reduced ejection fraction) (HCC) Coronary arteriosclerosis Procedures CONSULT TO CARDIOLOGY OFFICE/OUTPATIENT [facility] 60 MINUTES Lyubov Prado APRN.PARK ACTIVITIES COORDINATOR [address] [facility] [address] Referral ID Status Reason Start Date Expiration Date Visits Requested Visits Authorized [id number] Authorized PCP Requested Referral 03/27/2024 03/27/2025 1 1 Specialty Diagnoses / Procedures Referred By Contac t Referred To Contact Plastic Surgery Diagnoses History of above-knee amputation of both lower extremities (HCC) Amputation stump pain (HCC) (HCC) Aortoiliac occlusive disease (HCC) Procedures CONSULT TO PLASTIC SURGERY OFFICE/OUTPATIENT [facility] 60 MINUTES Elizabeth Ball, INEZ.PARK ACTIVITIES COORDINATOR [address] [facility] [address] [place] [address] Thierry Rush MD [address] [facility] [address] [place] [address] Referral ID Status Reason Start Date Expiration Date Visits Requested Visits Authorized [id number] Authorized PCP Requested Referral 06/06/2024 06/06/2025 1 1 Medications Administered Section Inactive Administered Medications - up to 3 most recent administrations Medication Order MAR Action Action Date Dose Rate Site lidocaine (PF) 10 mg/mL (1 %) injection (XYLOCAINE) SUBCUTANEOUS, NEEDED, Starting on Wed03/06/22 at 1455, Until Wed03/06/22 at 1455 Given 03/06/2022 2:55 PM EDT 10 mL Ot her methylPREDNISolone acetate injection (DEPO-Medrol) INTRA-ARTICULAR, NEEDED, Starting on Wed03/06/22 at 1457, Until Wed03/06/22 at 1457 Given 03/06/2022 2:57 PM EDT 80 mg Inactive Administered Medications - up to 3 most recent administrations Medication Order MAR Action Action Date Dose Rate Site NaCl 0.9% iv infusion 5-30 mL/hr, INTRAVENOUS, CONTINUOUS, Starting on Wed05/26/23 at 0930, Until Wed05/26/23 at 1029, Preprocedure Restarted 05/26/2023 10:00 AM EDT New Bag/Syringe/Bottle 05/26/2023 9:25 AM EDT 30 mL/hr 3 0 mL/hr Additional Source Comments (unrecognized sect ion and content) No Status Records FoundNo Status Records FoundNo Status Records FoundNo Status Records FoundNo Status Records FoundNo Status Records Found INFORMATION SOURCE (unrecogn ized section and content) DATE CREATED AUTHOR 04/13/2021 [facility] DATE CREATED AUTHOR AUTHOR'S ORGANIZ ATION 10/20/2024 [facility] DATE CREATED AUTHOR AUTHOR'S ORGANIZ ATION 10/20/2024 [facility] DATE CREATED AUTHOR AUTHOR'S ORGANIZ ATION 04/07/2025 [facility] DATE CREATED AUTHOR AUTHOR'S ORGANIZ ATION 05/18/2025 [facility] DATE CREATED AUTHOR AUTHOR'S ORGANIZ ATION 05/30/2025 [facility] Source Comments (unrecognize d section and content) In the event this informatio n is protected by the Federal Confidentiality of Alcohol and Drug Abuse Patient Records regulations: The Federal rules restrict any use of the information to criminally investigate or prosecute any alcohol or drug abuse patient.[facility] Center[facility] the event this information is protected by the Federal Confidentiality of Alcohol and Drug Abuse Patient Records regulations: The Federal rules restrict any use of the information to criminally investigate or prosecute any alcohol or drug abuse patient.[facility] CenterIn the event this information is protected by the Federal Confidentiality of Alcohol and Drug Abuse Patient Records regulations: The Federal rules restrict any use of the information to criminally investigate or prosecute any alcohol or drug abuse patient.[facility] CenterIn the event this information is protected by the Federal Confidentiality of Alcohol and Drug Abuse Patient Records regulations: The Federal rules restrict any use of the information to criminally investigate or prosecute any alcohol or drug abuse patient.[facility] CenterIn the event this information is protected by the Federal Confidentiality of Alcohol and Drug Abuse Patient Records regulations: The Federal rules restrict any use of the information to criminally investigate or prosecute any alcohol or drug abuse patient.[facility] CenterIn the event this information is protected by the Federal Confidentiality of Alcohol and Drug Abuse Patient Records regulations: The Federal rules restrict any use of the information to criminally investigate or prosecute any alcohol or drug abuse patient.[facility] CenterIn the event this information is protected by the Federal Confidentiality of Alcohol and Drug Abuse Patient Records regulations: The Federal rules restrict any use of the information to criminally investigate or prosecute any alcohol or drug abuse patient.[facility] CenterIn the event this information is protected by the Federal Confidentiality of Alcohol and Drug Abuse Patient Records regulations: The Federal rules restrict any use of the information to criminally investigate or prosecute any alcohol or drug abuse patient.[facility] CenterIn the event this information is protected by the Federal Confidentiality of Alcohol and Drug Abuse Patient Records regulations: The Federal rules restrict any use of the information to criminally investigate or prosecute any alcohol or drug abuse patient.[facility] CenterIn the event this information is protected by the Federal Confidentiality of Alcohol and Drug Abuse Patient Records regulations: The Federal rules restrict any use of the information to criminally investigate or prosecute any alcohol or drug abuse patient.[facility] CenterIn the event this information is protected by the Federal Confidentiality of Alcohol and Drug Abuse Patient Records regulations: The Federal rules restrict any use of the information to criminally investigate or prosecute any alcohol or drug abuse patient.[facility] CenterIn the event this information is protected by the Federal Confidentiality of Alcohol and Drug Abuse Patient Records regulations: The Federal rules restrict any use of the information to criminally investigate or prosecute any alcohol or drug abuse patient.[facility] CenterIn the event this information is protected by the Federal Confidentiality of Alcohol and Drug Abuse Patient Records regulations: The Federal rules restrict any use of the information to criminally investigate or prosecute any alcohol or drug abuse patient.[facility] CenterIn the event this information is protected by the Federal Confidentiality of Alcohol and Drug Abuse Patient Records regulations: The Federal rules restrict any use of the information to criminally investigate or prosecute any alcohol or drug abuse patient.[facility] CenterIn the event this information is protected by the Federal Confidentiality of Alcohol and Drug Abuse Patient Records regulations: The Federal rules restrict any use of the information to criminally investigate or prosecute any alcohol or drug abuse patient.[facility] CenterIn the event this information is protected by the Federal Confidentiality of Alcohol and Drug Abuse Patient Records regulations: The Federal rules restrict any use of the information to criminally investigate or prosecute any alcohol or drug abuse patient.[facility] CenterIn the event this information is protected by the Federal Confidentiality of Alcohol and Drug Abuse Patient Records regulations: The Federal rules restrict any use of the information to criminally investigate or prosecute any alcohol or drug abuse patient.[facility] CenterIn the event this information is protected by the Federal Confidentiality of Alcohol and Drug Abuse Patient Records regulations: The Federal rules restrict any use of the information to criminally investigate or prosecute any alcohol or drug abuse patient.[facility] CenterIn the event this information is protected by the Federal Confidentiality of Alcohol and Drug Abuse Patient Records regulations: The Federal rules restrict any use of the information to criminally investigate or prosecute any alcohol or drug abuse patient.[facility] CenterIn the event this information is protected by the Federal Confidentiality of Alcohol and Drug Abuse Patient Records regulations: The Federal rules restrict any use of the information to criminally investigate or prosecute any alcohol or drug abuse patient.[facility] CenterIn the event this information is protected by the Federal Confidentiality of Alcohol and Drug Abuse Patient Records regulations: The Federal rules restrict any use of the information to criminally investigate or prosecute any alcohol or drug abuse patient.[facility] CenterIn the event this information is protected by the Federal Confidentiality of Alcohol and Drug Abuse Patient Records regulations: The Federal rules restrict any use of the information to criminally investigate or prosecute any alcohol or drug abuse patient.[facility] CenterIn the event this information is protected by the Federal Confidentiality of Alcohol and Drug Abuse Patient Records regulations: The Federal rules restrict any use of the information to criminally investigate or prosecute any alcohol or drug abuse patient.[facility] CenterIn the event this information is protected by the Federal Confidentiality of Alcohol and Drug Abuse Patient Records regulations: The Federal rules restrict any use of the information to criminally investigate or prosecute any alcohol or drug abuse patient.[facility] CenterIn the event this information is protected by the Federal Confidentiality of Alcohol and Drug Abuse Patient Records regulations: The Federal rules restrict any use of the information to criminally investigate or prosecute any alcohol or drug abuse patient.[facility] CenterIn the event this information is protected by the Federal Confidentiality of Alcohol and Drug Abuse Patient Records regulations: The Federal rules restrict any use of the information to criminally investigate or prosecute any alcohol or drug abuse patient.[facility] CenterIn the event this information is protected by the Federal Confidentiality of Alcohol and Drug Abuse Patient Records regulations: The Federal rules restrict any use of the information to criminally investigate or prosecute any alcohol or drug abuse patient.[facility] CenterIn the event this information is protected by the Federal Confidentiality of Alcohol and Drug Abuse Patient Records regulations: The Federal rules restrict any use of the information to criminally investigate or prosecute any alcohol or drug abuse patient.[facility] CenterIn the event this information is protected by the Federal Confidentiality of Alcohol and Drug Abuse Patient Records regulations: The Federal rules restrict any use of the information to criminally investigate or prosecute any alcohol or drug abuse patient.[facility] CenterIn the event this information is protected by the Federal Confidentiality of Alcohol and Drug Abuse Patient Records regulations: The Federal rules restrict any use of the information to criminally investigate or prosecute any alcohol or drug abuse patient.[facility] CenterIn the event this information is protected by the Federal Confidentiality of Alcohol and Drug Abuse Patient Records regulations: The Federal rules restrict any use of the information to criminally investigate or prosecute any alcohol or drug abuse patient.[facility] CenterIn the event this information is protected by the Federal Confidentiality of Alcohol and Drug Abuse Patient Records regulations: The Federal rules restrict any use of the information to criminally investigate or prosecute any alcohol or drug abuse patient.[facility] CenterIn the event this information is protected by the Federal Confidentiality of Alcohol and Drug Abuse Patient Records regulations: The Federal rules restrict any use of the information to criminally investigate or prosecute any alcohol or drug abuse patient.[facility] CenterIn the event this information is protected by the Federal Confidentiality of Alcohol and Drug Abuse Patient Records regulations: The Federal rules restrict any use of the information to criminally investigate or prosecute any alcohol or drug abuse patient.[facility] CenterIn the event this information is protected by the Federal Confidentiality of Alcohol and Drug Abuse Patient Records regulations: The Federal rules restrict any use of the information to criminally investigate or prosecute any alcohol or drug abuse patient.[facility] CenterIn the event this information is protected by the Federal Confidentiality of Alcohol and Drug Abuse Patient Records regulations: The Federal rules restrict any use of the information to criminally investigate or prosecute any alcohol or drug abuse patient.[facility] CenterIn the event this information is protected by the Federal Confidentiality of Alcohol and Drug Abuse Patient Records regulations: The Federal rules restrict any use of the information to criminally investigate or prosecute any alcohol or drug abuse patient.[facility] CenterIn the event this information is protected by the Federal Confidentiality of Alcohol and Drug Abuse Patient Records regulations: The Federal rules restrict any use of the information to criminally investigate or prosecute any alcohol or drug abuse patient.[facility] CenterIn the event this information is protected by the Federal Confidentiality of Alcohol and Drug Abuse Patient Records regulations: The Federal rules restrict any use of the information to criminally investigate or prosecute any alcohol or drug abuse patient.[facility] CenterIn the event this information is protected by the Federal Confidentiality of Alcohol and Drug Abuse Patient Records regulations: The Federal rules restrict any use of the information to criminally investigate or prosecute any alcohol or drug abuse patient.[facility] CenterIn the event this information is protected by the Federal Confidentiality of Alcohol and Drug Abuse Patient Records regulations: The Federal rules restrict any use of the information to criminally investigate or prosecute any alcohol or drug abuse patient.[facility] CenterIn the event this information is protected by the Federal Confidentiality of Alcohol and Drug Abuse Patient Records regulations: The Federal rules restrict any use of the information to criminally investigate or prosecute any alcohol or drug abuse patient.[facility] CenterIn the event this information is protected by the Federal Confidentiality of Alcohol and Drug Abuse Patient Records regulations: The Federal rules restrict any use of the information to criminally investigate or prosecute any alcohol or drug abuse patient.[facility] CenterIn the event this information is protected by the Federal Confidentiality of Alcohol and Drug Abuse Patient Records regulations: The Federal rules restrict any use of the information to criminally investigate or prosecute any alcohol or drug abuse patient.[facility] CenterIn the event this information is protected by the Federal Confidentiality of Alcohol and Drug Abuse Patient Records regulations: The Federal rules restrict any use of the information to criminally investigate or prosecute any alcohol or drug abuse patient.[facility] CenterIn the event this information is protected by the Federal Confidentiality of Alcohol and Drug Abuse Patient Records regulations: The Federal rules restrict any use of the information to criminally investigate or prosecute any alcohol or drug abuse patient.[facility] CenterIn the event this information is protected by the Federal Confidentiality of Alcohol and Drug Abuse Patient Records regulations: The Federal rules restrict any use of the information to criminally investigate or prosecute any alcohol or drug abuse patient.[facility] CenterIn the event this information is protected by the Federal Confidentiality of Alcohol and Drug Abuse Patient Records regulations: The Federal rules restrict any use of the information to criminally investigate or prosecute any alcohol or drug abuse patient.[facility] CenterIn the event this information is protected by the Federal Confidentiality of Alcohol and Drug Abuse Patient Records regulations: The Federal rules restrict any use of the information to criminally investigate or prosecute any alcohol or drug abuse patient.[facility] CenterIn the event this information is protected by the Federal Confidentiality of Alcohol and Drug Abuse Patient Records regulations: The Federal rules restrict any use of the information to criminally investigate or prosecute any alcohol or drug abuse patient.[facility] CenterIn the event this information is protected by the Federal Confidentiality of Alcohol and Drug Abuse Patient Records regulations: The Federal rules restrict any use of the information to criminally investigate or prosecute any alcohol or drug abuse patient.[facility] CenterIn the event this information is protected by the Federal Confidentiality of Alcohol and Drug Abuse Patient Records regulations: The Federal rules restrict any use of the information to criminally investigate or prosecute any alcohol or drug abuse patient.[facility] CenterIn the event this information is protected by the Federal Confidentiality of Alcohol and Drug Abuse Patient Records regulations: The Federal rules restrict any use of the information to criminally investigate or prosecute any alcohol or drug abuse patient.[facility] CenterIn the event this information is protected by the Federal Confidentiality of Alcohol and Drug Abuse Patient Records regulations: The Federal rules restrict any use of the information to criminally investigate or prosecute any alcohol or drug abuse patient.[facility] CenterIn the event this information is protected by the Federal Confidentiality of Alcohol and Drug Abuse Patient Records regulations: The Federal rules restrict any use of the information to criminally investigate or prosecute any alcohol or drug abuse patient.[facility] CenterIn the event this information is protected by the Federal Confidentiality of Alcohol and Drug Abuse Patient Records regulations: The Federal rules restrict any use of the information to criminally investigate or prosecute any alcohol or drug abuse patient.[facility] CenterIn the event this information is protected by the Federal Confidentiality of Alcohol and Drug Abuse Patient Records regulations: The Federal rules restrict any use of the information to criminally investigate or prosecute any alcohol or drug abuse patient.[facility] CenterIn the event this information is protected by the Federal Confidentiality of Alcohol and Drug Abuse Patient Records regulations: The Federal rules restrict any use of the information to criminally investigate or prosecute any alcohol or drug abuse patient.[facility] CenterIn the event this information is protected by the Federal Confidentiality of Alcohol and Drug Abuse Patient Records regulations: The Federal rules restrict any use of the information to criminally investigate or prosecute any alcohol or drug abuse patient.[facility] CenterIn the event this information is protected by the Federal Confidentiality of Alcohol and Drug Abuse Patient Records regulations: The Federal rules restrict any use of the information to criminally investigate or prosecute any alcohol or drug abuse patient.[facility] CenterIn the event this information is protected by the Federal Confidentiality of Alcohol and Drug Abuse Patient Records regulations: The Federal rules restrict any use of the information to criminally investigate or prosecute any alcohol or drug abuse patient.[facility] CenterIn the event this information is protected by the Federal Confidentiality of Alcohol and Drug Abuse Patient Records regulations: The Federal rules restrict any use of the information to criminally investigate or prosecute any alcohol or drug abuse patient.[facility] CenterIn the event this information is protected by the Federal Confidentiality of Alcohol and Drug Abuse Patient Records regulations: The Federal rules restrict any use of the information to criminally investigate or prosecute any alcohol or drug abuse patient.[facility] CenterIn the event this information is protected by the Federal Confidentiality of Alcohol and Drug Abuse Patient Records regulations: The Federal rules restrict any use of the information to criminally investigate or prosecute any alcohol or drug abuse patient.[facility] CenterIn the event this information is protected by the Federal Confidentiality of Alcohol and Drug Abuse Patient Records regulations: The Federal rules restrict any use of the information to criminally investigate or prosecute any alcohol or drug abuse patient.[facility] CenterIn the event this information is protected by the Federal Confidentiality of Alcohol and Drug Abuse Patient Records regulations: The Federal rules restrict any use of the information to criminally investigate or prosecute any alcohol or drug abuse patient.[facility] CenterIn the event this information is protected by the Federal Confidentiality of Alcohol and Drug Abuse Patient Records regulations: The Federal rules restrict any use of the information to criminally investigate or prosecute any alcohol or drug abuse patient.[facility] CenterIn the event this information is protected by the Federal Confidentiality of Alcohol and Drug Abuse Patient Records regulations: The Federal rules restrict any use of the information to criminally investigate or prosecute any alcohol or drug abuse patient.[facility] CenterIn the event this information is protected by the Federal Confidentiality of Alcohol and Drug Abuse Patient Records regulations: The Federal rules restrict any use of the information to criminally investigate or prosecute any alcohol or drug abuse patient.[facility] CenterIn the event this information is protected by the Federal Confidentiality of Alcohol and Drug Abuse Patient Records regulations: The Federal rules restrict any use of the information to criminally investigate or prosecute any alcohol or drug abuse patient.[facility] CenterIn the event this information is protected by the Federal Confidentiality of Alcohol and Drug Abuse Patient Records regulations: The Federal rules restrict any use of the information to criminally investigate or prosecute any alcohol or drug abuse patient.[facility] CenterIn the event this information is protected by the Federal Confidentiality of Alcohol and Drug Abuse Patient Records regulations: The Federal rules restrict any use of the information to criminally investigate or prosecute any alcohol or drug abuse patient.[facility] CenterIn the event this information is protected by the Federal Confidentiality of Alcohol and Drug Abuse Patient Records regulations: The Federal rules restrict any use of the information to criminally investigate or prosecute any alcohol or drug abuse patient.[facility] CenterIn the event this information is protected by the Federal Confidentiality of Alcohol and Drug Abuse Patient Records regulations: The Federal rules restrict any use of the information to criminally investigate or prosecute any alcohol or drug abuse patient.[facility] CenterIn the event this information is protected by the Federal Confidentiality of Alcohol and Drug Abuse Patient Records regulations: The Federal rules restrict any use of the information to criminally investigate or prosecute any alcohol or drug abuse patient.[facility] CenterIn the event this information is protected by the Federal Confidentiality of Alcohol and Drug Abuse Patient Records regulations: The Federal rules restrict any use of the information to criminally investigate or prosecute any alcohol or drug abuse patient.[facility] CenterIn the event this information is protected by the Federal Confidentiality of Alcohol and Drug Abuse Patient Records regulations: The Federal rules restrict any use of the information to criminally investigate or prosecute any alcohol or drug abuse patient.[facility] CenterIn the event this information is protected by the Federal Confidentiality of Alcohol and Drug Abuse Patient Records regulations: The Federal rules restrict any use of the information to criminally investigate or prosecute any alcohol or drug abuse patient.[facility] CenterIn the event this information is protected by the Federal Confidentiality of Alcohol and Drug Abuse Patient Records regulations: The Federal rules restrict any use of the information to criminally investigate or prosecute any alcohol or drug abuse patient.[facility] CenterIn the event this information is protected by the Federal Confidentiality of Alcohol and Drug Abuse Patient Records regulations: The Federal rules restrict any use of the information to criminally investigate or prosecute any alcohol or drug abuse patient.[facility] CenterIn the event this information is protected by the Federal Confidentiality of Alcohol and Drug Abuse Patient Records regulations: The Federal rules restrict any use of the information to criminally investigate or prosecute any alcohol or drug abuse patient.[facility] CenterIn the event this information is protected by the Federal Confidentiality of Alcohol and Drug Abuse Patient Records regulations: The Federal rules restrict any use of the information to criminally investigate or prosecute any alcohol or drug abuse patient.[facility] CenterIn the event this information is protected by the Federal Confidentiality of Alcohol and Drug Abuse Patient Records regulations: The Federal rules restrict any use of the information to criminally investigate or prosecute any alcohol or drug abuse patient.[facility] CenterIn the event this information is protected by the Federal Confidentiality of Alcohol and Drug Abuse Patient Records regulations: The Federal rules restrict any use of the information to criminally investigate or prosecute any alcohol or drug abuse patient.[facility] CenterIn the event this information is protected by the Federal Confidentiality of Alcohol and Drug Abuse Patient Records regulations: The Federal rules restrict any use of the information to criminally investigate or prosecute any alcohol or drug abuse patient.[facility] CenterIn the event this information is protected by the Federal Confidentiality of Alcohol and Drug Abuse Patient Records regulations: The Federal rules restrict any use of the information to criminally investigate or prosecute any alcohol or drug abuse patient.[facility] CenterIn the event this information is protected by the Federal Confidentiality of Alcohol and Drug Abuse Patient Records regulations: The Federal rules restrict any use of the information to criminally investigate or prosecute any alcohol or drug abuse patient.[facility] CenterIn the event this information is protected by the Federal Confidentiality of Alcohol and Drug Abuse Patient Records regulations: The Federal rules restrict any use of the information to criminally investigate or prosecute any alcohol or drug abuse patient.[facility] CenterIn the event this information is protected by the Federal Confidentiality of Alcohol and Drug Abuse Patient Records regulations: The Federal rules restrict any use of the information to criminally investigate or prosecute any alcohol or drug abuse patient.[facility] CenterIn the event this information is protected by the Federal Confidentiality of Alcohol and Drug Abuse Patient Records regulations: The Federal rules restrict any use of the information to criminally investigate or prosecute any alcohol or drug abuse patient.[facility] CenterIn the event this information is protected by the Federal Confidentiality of Alcohol and Drug Abuse Patient Records regulations: The Federal rules restrict any use of the information to criminally investigate or prosecute any alcohol or drug abuse patient.[facility] CenterIn the event this information is protected by the Federal Confidentiality of Alcohol and Drug Abuse Patient Records regulations: The Federal rules restrict any use of the information to criminally investigate or prosecute any alcohol or drug abuse patient.[facility] CenterIn the event this information is protected by the Federal Confidentiality of Alcohol and Drug Abuse Patient Records regulations: The Federal rules restrict any use of the information to criminally investigate or prosecute any alcohol or drug abuse patient.[facility] CenterIn the event this information is protected by the Federal Confidentiality of Alcohol and Drug Abuse Patient Records regulations: The Federal rules restrict any use of the information to criminally investigate or prosecute any alcohol or drug abuse patient.[facility] CenterIn the event this information is protected by the Federal Confidentiality of Alcohol and Drug Abuse Patient Records regulations: The Federal rules restrict any use of the information to criminally investigate or prosecute any alcohol or drug abuse patient.[facility] CenterIn the event this information is protected by the Federal Confidentiality of Alcohol and Drug Abuse Patient Records regulations: The Federal rules restrict any use of the information to criminally investigate or prosecute any alcohol or drug abuse patient.[facility] CenterIn the event this information is protected by the Federal Confidentiality of Alcohol and Drug Abuse Patient Records regulations: The Federal rules restrict any use of the information to criminally investigate or prosecute any alcohol or drug abuse patient.[facility] CenterIn the event this information is protected by the Federal Confidentiality of Alcohol and Drug Abuse Patient Records regulations: The Federal rules restrict any use of the information to criminally investigate or prosecute any alcohol or drug abuse patient.[facility] CenterIn the event this information is protected by the Federal Confidentiality of Alcohol and Drug Abuse Patient Records regulations: The Federal rules restrict any use of the information to criminally investigate or prosecute any alcohol or drug abuse patient.[facility] CenterIn the event this information is protected by the Federal Confidentiality of Alcohol and Drug Abuse Patient Records regulations: The Federal rules restrict any use of the information to criminally investigate or prosecute any alcohol or drug abuse patient.[facility] CenterIn the event this information is protected by the Federal Confidentiality of Alcohol and Drug Abuse Patient Records regulations: The Federal rules restrict any use of the information to criminally investigate or prosecute any alcohol or drug abuse patient.[facility] CenterIn the event this information is protected by the Federal Confidentiality of Alcohol and Drug Abuse Patient Records regulations: The Federal rules restrict any use of the information to criminally investigate or prosecute any alcohol or drug abuse patient.[facility] CenterIn the event this information is protected by the Federal Confidentiality of Alcohol and Drug Abuse Patient Records regulations: The Federal rules restrict any use of the information to criminally investigate or prosecute any alcohol or drug abuse patient.[facility] CenterIn the event this information is protected by the Federal Confidentiality of Alcohol and Drug Abuse Patient Records regulations: The Federal rules restrict any use of the information to criminally investigate or prosecute any alcohol or drug abuse patient.[facility] CenterIn the event this information is protected by the Federal Confidentiality of Alcohol and Drug Abuse Patient Records regulations: The Federal rules restrict any use of the information to criminally investigate or prosecute any alcohol or drug abuse patient.[facility] CenterIn the event this information is protected by the Federal Confidentiality of Alcohol and Drug Abuse Patient Records regulations: The Federal rules restrict any use of the information to criminally investigate or prosecute any alcohol or drug abuse patient.[facility] CenterIn the event this information is protected by the Federal Confidentiality of Alcohol and Drug Abuse Patient Records regulations: The Federal rules restrict any use of the information to criminally investigate or prosecute any alcohol or drug abuse patient.[facility] CenterIn the event this information is protected by the Federal Confidentiality of Alcohol and Drug Abuse Patient Records regulations: The Federal rules restrict any use of the information to criminally investigate or prosecute any alcohol or drug abuse patient.[facility] CenterIn the event this information is protected by the Federal Confidentiality of Alcohol and Drug Abuse Patient Records regulations: The Federal rules restrict any use of the information to criminally investigate or prosecute any alcohol or drug abuse patient.[facility] CenterIn the event this information is protected by the Federal Confidentiality of Alcohol and Drug Abuse Patient Records regulations: The Federal rules restrict any use of the information to criminally investigate or prosecute any alcohol or drug abuse patient.[facility] CenterIn the event this information is protected by the Federal Confidentiality of Alcohol and Drug Abuse Patient Records regulations: The Federal rules restrict any use of the information to criminally investigate or prosecute any alcohol or drug abuse patient.[facility] CenterIn the event this information is protected by the Federal Confidentiality of Alcohol and Drug Abuse Patient Records regulations: The Federal rules restrict any use of the information to criminally investigate or prosecute any alcohol or drug abuse patient.[facility] CenterIn the event this information is protected by the Federal Confidentiality of Alcohol and Drug Abuse Patient Records regulations: The Federal rules restrict any use of the information to criminally investigate or prosecute any alcohol or drug abuse patient.[facility] CenterIn the event this information is protected by the Federal Confidentiality of Alcohol and Drug Abuse Patient Records regulations: The Federal rules restrict any use of the information to criminally investigate or prosecute any alcohol or drug abuse patient.[facility] CenterIn the event this information is protected by the Federal Confidentiality of Alcohol and Drug Abuse Patient Records regulations: The Federal rules restrict any use of the information to criminally investigate or prosecute any alcohol or drug abuse patient.[facility] CenterIn the event this information is protected by the Federal Confidentiality of Alcohol and Drug Abuse Patient Records regulations: The Federal rules restrict any use of the information to criminally investigate or prosecute any alcohol or drug abuse patient.[facility] CenterIn the event this information is protected by the Federal Confidentiality of Alcohol and Drug Abuse Patient Records regulations: The Federal rules restrict any use of the information to criminally investigate or prosecute any alcohol or drug abuse patient.[facility] CenterIn the event this information is protected by the Federal Confidentiality of Alcohol and Drug Abuse Patient Records regulations: The Federal rules restrict any use of the information to criminally investigate or prosecute any alcohol or drug abuse patient.[facility] CenterIn the event this information is protected by the Federal Confidentiality of Alcohol and Drug Abuse Patient Records regulations: The Federal rules restrict any use of the information to criminally investigate or prosecute any alcohol or drug abuse patient.[facility] CenterIn the event this information is protected by the Federal Confidentiality of Alcohol and Drug Abuse Patient Records regulations: The Federal rules restrict any use of the information to criminally investigate or prosecute any alcohol or drug abuse patient.[facility] CenterIn the event this information is protected by the Federal Confidentiality of Alcohol and Drug Abuse Patient Records regulations: The Federal rules restrict any use of the information to criminally investigate or prosecute any alcohol or drug abuse patient.[facility] CenterIn the event this information is protected by the Federal Confidentiality of Alcohol and Drug Abuse Patient Records regulations: The Federal rules restrict any use of the information to criminally investigate or prosecute any alcohol or drug abuse patient.[facility] CenterIn the event this information is protected by the Federal Confidentiality of Alcohol and Drug Abuse Patient Records regulations: The Federal rules restrict any use of the information to criminally investigate or prosecute any alcohol or drug abuse patient.[facility] CenterIn the event this information is protected by the Federal Confidentiality of Alcohol and Drug Abuse Patient Records regulations: The Federal rules restrict any use of the information to criminally investigate or prosecute any alcohol or drug abuse patient.[facility] CenterIn the event this information is protected by the Federal Confidentiality of Alcohol and Drug Abuse Patient Records regulations: The Federal rules restrict any use of the information to criminally investigate or prosecute any alcohol or drug abuse patient.[facility] CenterIn the event this information is protected by the Federal Confidentiality of Alcohol and Drug Abuse Patient Records regulations: The Federal rules restrict any use of the information to criminally investigate or prosecute any alcohol or drug abuse patient.[facility] CenterIn the event this information is protected by the Federal Confidentiality of Alcohol and Drug Abuse Patient Records regulations: The Federal rules restrict any use of the information to criminally investigate or prosecute any alcohol or drug abuse patient.[facility] CenterIn the event this information is protected by the Federal Confidentiality of Alcohol and Drug Abuse Patient Records regulations: The Federal rules restrict any use of the information to criminally investigate or prosecute any alcohol or drug abuse patient.[facility] CenterIn the event this information is protected by the Federal Confidentiality of Alcohol and Drug Abuse Patient Records regulations: The Federal rules restrict any use of the information to criminally investigate or prosecute any alcohol or drug abuse patient.[facility] CenterIn the event this information is protected by the Federal Confidentiality of Alcohol and Drug Abuse Patient Records regulations: The Federal rules restrict any use of the information to criminally investigate or prosecute any alcohol or drug abuse patient.[facility] CenterIn the event this information is protected by the Federal Confidentiality of Alcohol and Drug Abuse Patient Records regulations: The Federal rules restrict any use of the information to criminally investigate or prosecute any alcohol or drug abuse patient.[facility] CenterIn the event this information is protected by the Federal Confidentiality of Alcohol and Drug Abuse Patient Records regulations: The Federal rules restrict any use of the information to criminally investigate or prosecute any alcohol or drug abuse patient.[facility] CenterIn the event this information is protected by the Federal Confidentiality of Alcohol and Drug Abuse Patient Records regulations: The Federal rules restrict any use of the information to criminally investigate or prosecute any alcohol or drug abuse patient.[facility] CenterIn the event this information is protected by the Federal Confidentiality of Alcohol and Drug Abuse Patient Records regulations: The Federal rules restrict any use of the information to criminally investigate or prosecute any alcohol or drug abuse patient.[facility] CenterIn the event this information is protected by the Federal Confidentiality of Alcohol and Drug Abuse Patient Records regulations: The Federal rules restrict any use of the information to criminally investigate or prosecute any alcohol or drug abuse patient.[facility] CenterIn the event this information is protected by the Federal Confidentiality of Alcohol and Drug Abuse Patient Records regulations: The Federal rules restrict any use of the information to criminally investigate or prosecute any alcohol or drug abuse patient.[facility] CenterIn the event this information is protected by the Federal Confidentiality of Alcohol and Drug Abuse Patient Records regulations: The Federal rules restrict any use of the information to criminally investigate or prosecute any alcohol or drug abuse patient.[facility] CenterIn the event this information is protected by the Federal Confidentiality of Alcohol and Drug Abuse Patient Records regulations: The Federal rules restrict any use of the information to criminally investigate or prosecute any alcohol or drug abuse patient.[facility] CenterIn the event this information is protected by the Federal Confidentiality of Alcohol and Drug Abuse Patient Records regulations: The Federal rules restrict any use of the information to criminally investigate or prosecute any alcohol or drug abuse patient.[facility] CenterIn the event this information is protected by the Federal Confidentiality of Alcohol and Drug Abuse Patient Records regulations: The Federal rules restrict any use of the information to criminally investigate or prosecute any alcohol or drug abuse patient.[facility] CenterIn the event this information is protected by the Federal Confidentiality of Alcohol and Drug Abuse Patient Records regulations: The Federal rules restrict any use of the information to criminally investigate or prosecute any alcohol or drug abuse patient.[facility] CenterIn the event this information is protected by the Federal Confidentiality of Alcohol and Drug Abuse Patient Records regulations: The Federal rules restrict any use of the information to criminally investigate or prosecute any alcohol or drug abuse patient.[facility] CenterIn the event this information is protected by the Federal Confidentiality of Alcohol and Drug Abuse Patient Records regulations: The Federal rules restrict any use of the information to criminally investigate or prosecute any alcohol or drug abuse patient.[facility] CenterIn the event this information is protected by the Federal Confidentiality of Alcohol and Drug Abuse Patient Records regulations: The Federal rules restrict any use of the information to criminally investigate or prosecute any alcohol or drug abuse patient.[facility] CenterIn the event this information is protected by the Federal Confidentiality of Alcohol and Drug Abuse Patient Records regulations: The Federal rules restrict any use of the information to criminally investigate or prosecute any alcohol or drug abuse patient.[facility] CenterIn the event this information is protected by the Federal Confidentiality of Alcohol and Drug Abuse Patient Records regulations: The Federal rules restrict any use of the information to criminally investigate or prosecute any alcohol or drug abuse patient.[facility] CenterIn the event this information is protected by the Federal Confidentiality of Alcohol and Drug Abuse Patient Records regulations: The Federal rules restrict any use of the information to criminally investigate or prosecute any alcohol or drug abuse patient.[facility] CenterIn the event this information is protected by the Federal Confidentiality of Alcohol and Drug Abuse Patient Records regulations: The Federal rules restrict any use of the information to criminally investigate or prosecute any alcohol or drug abuse patient.[facility] CenterIn the event this information is protected by the Federal Confidentiality of Alcohol and Drug Abuse Patient Records regulations: The Federal rules restrict any use of the information to criminally investigate or prosecute any alcohol or drug abuse patient.[facility] CenterIn the event this information is protected by the Federal Confidentiality of Alcohol and Drug Abuse Patient Records regulations: The Federal rules restrict any use of the information to criminally investigate or prosecute any alcohol or drug abuse patient.[facility] CenterIn the event this information is protected by the Federal Confidentiality of Alcohol and Drug Abuse Patient Records regulations: The Federal rules restrict any use of the information to criminally investigate or prosecute any alcohol or drug abuse patient.[facility] CenterIn the event this information is protected by the Federal Confidentiality of Alcohol and Drug Abuse Patient Records regulations: The Federal rules restrict any use of the information to criminally investigate or prosecute any alcohol or drug abuse patient.[facility] CenterIn the event this information is protected by the Federal Confidentiality of Alcohol and Drug Abuse Patient Records regulations: The Federal rules restrict any use of the information to criminally investigate or prosecute any alcohol or drug abuse patient.[facility] CenterIn the event this information is protected by the Federal Confidentiality of Alcohol and Drug Abuse Patient Records regulations: The Federal rules restrict any use of the information to criminally investigate or prosecute any alcohol or drug abuse patient.[facility] CenterIn the event this information is protected by the Federal Confidentiality of Alcohol and Drug Abuse Patient Records regulations: The Federal rules restrict any use of the information to criminally investigate or prosecute any alcohol or drug abuse patient.[facility] CenterIn the event this information is protected by the Federal Confidentiality of Alcohol and Drug Abuse Patient Records regulations: The Federal rules restrict any use of the information to criminally investigate or prosecute any alcohol or drug abuse patient.[facility] CenterIn the event this information is protected by the Federal Confidentiality of Alcohol and Drug Abuse Patient Records regulations: The Federal rules restrict any use of the information to criminally investigate or prosecute any alcohol or drug abuse patient.[facility] CenterIn the event this information is protected by the Federal Confidentiality of Alcohol and Drug Abuse Patient Records regulations: The Federal rules restrict any use of the information to criminally investigate or prosecute any alcohol or drug abuse patient.[facility] CenterIn the event this information is protected by the Federal Confidentiality of Alcohol and Drug Abuse Patient Records regulations: The Federal rules restrict any use of the information to criminally investigate or prosecute any alcohol or drug abuse patient.[facility] CenterIn the event this information is protected by the Federal Confidentiality of Alcohol and Drug Abuse Patient Records regulations: The Federal rules restrict any use of the information to criminally investigate or prosecute any alcohol or drug abuse patient.[facility] CenterIn the event this information is protected by the Federal Confidentiality of Alcohol and Drug Abuse Patient Records regulations: The Federal rules restrict any use of the information to criminally investigate or prosecute any alcohol or drug abuse patient.[facility] CenterIn the event this information is protected by the Federal Confidentiality of Alcohol and Drug Abuse Patient Records regulations: The Federal rules restrict any use of the information to criminally investigate or prosecute any alcohol or drug abuse patient.[facility] CenterIn the event this information is protected by the Federal Confidentiality of Alcohol and Drug Abuse Patient Records regulations: The Federal rules restrict any use of the information to criminally investigate or prosecute any alcohol or drug abuse patient.[facility] CenterIn the event this information is protected by the Federal Confidentiality of Alcohol and Drug Abuse Patient Records regulations: The Federal rules restrict any use of the information to criminally investigate or prosecute any alcohol or drug abuse patient.[facility] CenterIn the event this information is protected by the Federal Confidentiality of Alcohol and Drug Abuse Patient Records regulations: The Federal rules restrict any use of the information to criminally investigate or prosecute any alcohol or drug abuse patient.[facility] CenterIn the event this information is protected by the Federal Confidentiality of Alcohol and Drug Abuse Patient Records regulations: The Federal rules restrict any use of the information to criminally investigate or prosecute any alcohol or drug abuse patient.[facility] CenterIn the event this information is protected by the Federal Confidentiality of Alcohol and Drug Abuse Patient Records regulations: The Federal rules restrict any use of the information to criminally investigate or prosecute any alcohol or drug abuse patient.[facility] CenterIn the event this information is protected by the Federal Confidentiality of Alcohol and Drug Abuse Patient Records regulations: The Federal rules restrict any use of the information to criminally investigate or prosecute any alcohol or drug abuse patient.[facility] CenterIn the event this information is protected by the Federal Confidentiality of Alcohol and Drug Abuse Patient Records regulations: The Federal rules restrict any use of the information to criminally investigate or prosecute any alcohol or drug abuse patient.[facility] CenterIn the event this information is protected by the Federal Confidentiality of Alcohol and Drug Abuse Patient Records regulations: The Federal rules restrict any use of the information to criminally investigate or prosecute any alcohol or drug abuse patient.[facility] CenterIn the event this information is protected by the Federal Confidentiality of Alcohol and Drug Abuse Patient Records regulations: The Federal rules restrict any use of the information to criminally investigate or prosecute any alcohol or drug abuse patient.[facility] CenterIn the event this information is protected by the Federal Confidentiality of Alcohol and Drug Abuse Patient Records regulations: The Federal rules restrict any use of the information to criminally investigate or prosecute any alcohol or drug abuse patient.[facility] CenterIn the event this information is protected by the Federal Confidentiality of Alcohol and Drug Abuse Patient Records regulations: The Federal rules restrict any use of the information to criminally investigate or prosecute any alcohol or drug abuse patient.[facility] CenterIn the event this information is protected by the Federal Confidentiality of Alcohol and Drug Abuse Patient Records regulations: The Federal rules restrict any use of the information to criminally investigate or prosecute any alcohol or drug abuse patient.[facility] CenterIn the event this information is protected by the Federal Confidentiality of Alcohol and Drug Abuse Patient Records regulations: The Federal rules restrict any use of the information to criminally investigate or prosecute any alcohol or drug abuse patient.[facility] CenterIn the event this information is protected by the Federal Confidentiality of Alcohol and Drug Abuse Patient Records regulations: The Federal rules restrict any use of the information to criminally investigate or prosecute any alcohol or drug abuse patient.[facility] CenterIn the event this information is protected by the Federal Confidentiality of Alcohol and Drug Abuse Patient Records regulations: The Federal rules restrict any use of the information to criminally investigate or prosecute any alcohol or drug abuse patient.[facility] CenterIn the event this information is protected by the Federal Confidentiality of Alcohol and Drug Abuse Patient Records regulations: The Federal rules restrict any use of the information to criminally investigate or prosecute any alcohol or drug abuse patient.[facility] CenterIn the event this information is protected by the Federal Confidentiality of Alcohol and Drug Abuse Patient Records regulations: The Federal rules restrict any use of the information to criminally investigate or prosecute any alcohol or drug abuse patient.[facility] CenterIn the event this information is protected by the Federal Confidentiality of Alcohol and Drug Abuse Patient Records regulations: The Federal rules restrict any use of the information to criminally investigate or prosecute any alcohol or drug abuse patient.[facility] CenterIn the event this information is protected by the Federal Confidentiality of Alcohol and Drug Abuse Patient Records regulations: The Federal rules restrict any use of the information to criminally investigate or prosecute any alcohol or drug abuse patient.[facility] CenterIn the event this information is protected by the Federal Confidentiality of Alcohol and Drug Abuse Patient Records regulations: The Federal rules restrict any use of the information to criminally investigate or prosecute any alcohol or drug abuse patient.[facility] CenterIn the event this information is protected by the Federal Confidentiality of Alcohol and Drug Abuse Patient Records regulations: The Federal rules restrict any use of the information to criminally investigate or prosecute any alcohol or drug abuse patient.[facility] CenterIn the event this information is protected by the Federal Confidentiality of Alcohol and Drug Abuse Patient Records regulations: The Federal rules restrict any use of the information to criminally investigate or prosecute any alcohol or drug abuse patient.[facility] CenterIn the event this information is protected by the Federal Confidentiality of Alcohol and Drug Abuse Patient Records regulations: The Federal rules restrict any use of the information to criminally investigate or prosecute any alcohol or drug abuse patient.[facility] CenterIn the event this information is protected by the Federal Confidentiality of Alcohol and Drug Abuse Patient Records regulations: The Federal rules restrict any use of the information to criminally investigate or prosecute any alcohol or drug abuse patient.[facility] CenterIn the event this information is protected by the Federal Confidentiality of Alcohol and Drug Abuse Patient Records regulations: The Federal rules restrict any use of the information to criminally investigate or prosecute any alcohol or drug abuse patient.[facility] CenterIn the event this information is protected by the Federal Confidentiality of Alcohol and Drug Abuse Patient Records regulations: The Federal rules restrict any use of the information to criminally investigate or prosecute any alcohol or drug abuse patient.[facility] CenterIn the event this information is protected by the Federal Confidentiality of Alcohol and Drug Abuse Patient Records regulations: The Federal rules restrict any use of the information to criminally investigate or prosecute any alcohol or drug abuse patient.[facility] CenterIn the event this information is protected by the Federal Confidentiality of Alcohol and Drug Abuse Patient Records regulations: The Federal rules restrict any use of the information to criminally investigate or prosecute any alcohol or drug abuse patient.[facility] CenterIn the event this information is protected by the Federal Confidentiality of Alcohol and Drug Abuse Patient Records regulations: The Federal rules restrict any use of the information to criminally investigate or prosecute any alcohol or drug abuse patient.[facility] CenterIn the event this information is protected by the Federal Confidentiality of Alcohol and Drug Abuse Patient Records regulations: The Federal rules restrict any use of the information to criminally investigate or prosecute any alcohol or drug abuse patient.[facility] CenterIn the event this information is protected by the Federal Confidentiality of Alcohol and Drug Abuse Patient Records regulations: The Federal rules restrict any use of the information to criminally investigate or prosecute any alcohol or drug abuse patient.[facility] CenterIn the event this information is protected by the Federal Confidentiality of Alcohol and Drug Abuse Patient Records regulations: The Federal rules restrict any use of the information to criminally investigate or prosecute any alcohol or drug abuse patient.[facility] CenterIn the event this information is protected by the Federal Confidentiality of Alcohol and Drug Abuse Patient Records regulations: The Federal rules restrict any use of the information to criminally investigate or prosecute any alcohol or drug abuse patient.[facility] CenterIn the event this information is protected by the Federal Confidentiality of Alcohol and Drug Abuse Patient Records regulations: The Federal rules restrict any use of the information to criminally investigate or prosecute any alcohol or drug abuse patient.[facility] CenterIn the event this information is protected by the Federal Confidentiality of Alcohol and Drug Abuse Patient Records regulations: The Federal rules restrict any use of the information to criminally investigate or prosecute any alcohol or drug abuse patient.[facility] CenterIn the event this information is protected by the Federal Confidentiality of Alcohol and Drug Abuse Patient Records regulations: The Federal rules restrict any use of the information to criminally investigate or prosecute any alcohol or drug abuse patient.[facility] CenterIn the event this information is protected by the Federal Confidentiality of Alcohol and Drug Abuse Patient Records regulations: The Federal rules restrict any use of the information to criminally investigate or prosecute any alcohol or drug abuse patient.[facility] CenterIn the event this information is protected by the Federal Confidentiality of Alcohol and Drug Abuse Patient Records regulations: The Federal rules restrict any use of the information to criminally investigate or prosecute any alcohol or drug abuse patient.[facility] CenterIn the event this information is protected by the Federal Confidentiality of Alcohol and Drug Abuse Patient Records regulations: The Federal rules restrict any use of the information to criminally investigate or prosecute any alcohol or drug abuse patient.[facility] CenterIn the event this information is protected by the Federal Confidentiality of Alcohol and Drug Abuse Patient Records regulations: The Federal rules restrict any use of the information to criminally investigate or prosecute any alcohol or drug abuse patient.[facility] CenterIn the event this information is protected by the Federal Confidentiality of Alcohol and Drug Abuse Patient Records regulations: The Federal rules restrict any use of the information to criminally investigate or prosecute any alcohol or drug abuse patient.[facility] CenterIn the event this information is protected by the Federal Confidentiality of Alcohol and Drug Abuse Patient Records regulations: The Federal rules restrict any use of the information to criminally investigate or prosecute any alcohol or drug abuse patient.[facility] CenterIn the event this information is protected by the Federal Confidentiality of Alcohol and Drug Abuse Patient Records regulations: The Federal rules restrict any use of the information to criminally investigate or prosecute any alcohol or drug abuse patient.[facility] CenterIn the event this information is protected by the Federal Confidentiality of Alcohol and Drug Abuse Patient Records regulations: The Federal rules restrict any use of the information to criminally investigate or prosecute any alcohol or drug abuse patient.[facility] CenterIn the event this information is protected by the Federal Confidentiality of Alcohol and Drug Abuse Patient Records regulations: The Federal rules restrict any use of the information to criminally investigate or prosecute any alcohol or drug abuse patient.[facility] CenterIn the event this information is protected by the Federal Confidentiality of Alcohol and Drug Abuse Patient Records regulations: The Federal rules restrict any use of the information to criminally investigate or prosecute any alcohol or drug abuse patient.[facility] CenterIn the event this information is protected by the Federal Confidentiality of Alcohol and Drug Abuse Patient Records regulations: The Federal rules restrict any use of the information to criminally investigate or prosecute any alcohol or drug abuse patient.[facility] CenterIn the event this information is protected by the Federal Confidentiality of Alcohol and Drug Abuse Patient Records regulations: The Federal rules restrict any use of the information to criminally investigate or prosecute any alcohol or drug abuse patient.[facility] CenterIn the event this information is protected by the Federal Confidentiality of Alcohol and Drug Abuse Patient Records regulations: The Federal rules restrict any use of the information to criminally investigate or prosecute any alcohol or drug abuse patient.[facility] CenterIn the event this information is protected by the Federal Confidentiality of Alcohol and Drug Abuse Patient Records regulations: The Federal rules restrict any use of the information to criminally investigate or prosecute any alcohol or drug abuse patient.[facility] CenterIn the event this information is protected by the Federal Confidentiality of Alcohol and Drug Abuse Patient Records regulations: The Federal rules restrict any use of the information to criminally investigate or prosecute any alcohol or drug abuse patient.[facility] CenterIn the event this information is protected by the Federal Confidentiality of Alcohol and Drug Abuse Patient Records regulations: The Federal rules restrict any use of the information to criminally investigate or prosecute any alcohol or drug abuse patient.[facility] CenterIn the event this information is protected by the Federal Confidentiality of Alcohol and Drug Abuse Patient Records regulations: The Federal rules restrict any use of the information to criminally investigate or prosecute any alcohol or drug abuse patient.[facility] CenterIn the event this information is protected by the Federal Confidentiality of Alcohol and Drug Abuse Patient Records regulations: The Federal rules restrict any use of the information to criminally investigate or prosecute any alcohol or drug abuse patient.[facility] CenterIn the event this information is protected by the Federal Confidentiality of Alcohol and Drug Abuse Patient Records regulations: The Federal rules restrict any use of the information to criminally investigate or prosecute any alcohol or drug abuse patient.[facility] CenterIn the event this information is protected by the Federal Confidentiality of Alcohol and Drug Abuse Patient Records regulations: The Federal rules restrict any use of the information to criminally investigate or prosecute any alcohol or drug abuse patient.[facility] CenterIn the event this information is protected by the Federal Confidentiality of Alcohol and Drug Abuse Patient Records regulations: The Federal rules restrict any use of the information to criminally investigate or prosecute any alcohol or drug abuse patient.[facility] CenterIn the event this information is protected by the Federal Confidentiality of Alcohol and Drug Abuse Patient Records regulations: The Federal rules restrict any use of the information to criminally investigate or prosecute any alcohol or drug abuse patient.[facility] CenterIn the event this information is protected by the Federal Confidentiality of Alcohol and Drug Abuse Patient Records regulations: The Federal rules restrict any use of the information to criminally investigate or prosecute any alcohol or drug abuse patient.[facility] CenterIn the event this information is protected by the Federal Confidentiality of Alcohol and Drug Abuse Patient Records regulations: The Federal rules restrict any use of the information to criminally investigate or prosecute any alcohol or drug abuse patient.[facility] CenterIn the event this information is protected by the Federal Confidentiality of Alcohol and Drug Abuse Patient Records regulations: The Federal rules restrict any use of the information to criminally investigate or prosecute any alcohol or drug abuse patient.[facility] CenterIn the event this information is protected by the Federal Confidentiality of Alcohol and Drug Abuse Patient Records regulations: The Federal rules restrict any use of the information to criminally investigate or prosecute any alcohol or drug abuse patient.[facility] CenterIn the event this information is protected by the Federal Confidentiality of Alcohol and Drug Abuse Patient Records regulations: The Federal rules restrict any use of the information to criminally investigate or prosecute any alcohol or drug abuse patient.[facility] CenterIn the event this information is protected by the Federal Confidentiality of Alcohol and Drug Abuse Patient Records regulations: The Federal rules restrict any use of the information to criminally investigate or prosecute any alcohol or drug abuse patient.[facility] CenterIn the event this information is protected by the Federal Confidentiality of Alcohol and Drug Abuse Patient Records regulations: The Federal rules restrict any use of the information to criminally investigate or prosecute any alcohol or drug abuse patient.[facility] CenterIn the event this information is protected by the Federal Confidentiality of Alcohol and Drug Abuse Patient Records regulations: The Federal rules restrict any use of the information to criminally investigate or prosecute any alcohol or drug abuse patient.[facility] CenterIn the event this information is protected by the Federal Confidentiality of Alcohol and Drug Abuse Patient Records regulations: The Federal rules restrict any use of the information to criminally investigate or prosecute any alcohol or drug abuse patient.[facility] CenterIn the event this information is protected by the Federal Confidentiality of Alcohol and Drug Abuse Patient Records regulations: The Federal rules restrict any use of the information to criminally investigate or prosecute any alcohol or drug abuse patient.[facility] CenterIn the event this information is protected by the Federal Confidentiality of Alcohol and Drug Abuse Patient Records regulations: The Federal rules restrict any use of the information to criminally investigate or prosecute any alcohol or drug abuse patient.[facility] CenterIn the event this information is protected by the Federal Confidentiality of Alcohol and Drug Abuse Patient Records regulations: The Federal rules restrict any use of the information to criminally investigate or prosecute any alcohol or drug abuse patient.[facility] CenterIn the event this information is protected by the Federal Confidentiality of Alcohol and Drug Abuse Patient Records regulations: The Federal rules restrict any use of the information to criminally investigate or prosecute any alcohol or drug abuse patient.[facility] CenterIn the event this information is protected by the Federal Confidentiality of Alcohol and Drug Abuse Patient Records regulations: The Federal rules restrict any use of the information to criminally investigate or prosecute any alcohol or drug abuse patient.[facility] CenterIn the event this information is protected by the Federal Confidentiality of Alcohol and Drug Abuse Patient Records regulations: The Federal rules restrict any use of the information to criminally investigate or prosecute any alcohol or drug abuse patient.[facility] CenterIn the event this information is protected by the Federal Confidentiality of Alcohol and Drug Abuse Patient Records regulations: The Federal rules restrict any use of the information to criminally investigate or prosecute any alcohol or drug abuse patient.[facility] CenterIn the event this information is protected by the Federal Confidentiality of Alcohol and Drug Abuse Patient Records regulations: The Federal rules restrict any use of the information to criminally investigate or prosecute any alcohol or drug abuse patient.[facility] CenterIn the event this information is protected by the Federal Confidentiality of Alcohol and Drug Abuse Patient Records regulations: The Federal rules restrict any use of the information to criminally investigate or prosecute any alcohol or drug abuse patient.[facility] CenterIn the event this information is protected by the Federal Confidentiality of Alcohol and Drug Abuse Patient Records regulations: The Federal rules restrict any use of the information to criminally investigate or prosecute any alcohol or drug abuse patient.[facility] CenterIn the event this information is protected by the Federal Confidentiality of Alcohol and Drug Abuse Patient Records regulations: The Federal rules restrict any use of the information to criminally investigate or prosecute any alcohol or drug abuse patient.[facility] CenterIn the event this information is protected by the Federal Confidentiality of Alcohol and Drug Abuse Patient Records regulations: The Federal rules restrict any use of the information to criminally investigate or prosecute any alcohol or drug abuse patient.[facility] CenterIn the event this information is protected by the Federal Confidentiality of Alcohol and Drug Abuse Patient Records regulations: The Federal rules restrict any use of the information to criminally investigate or prosecute any alcohol or drug abuse patient.[facility] CenterIn the event this information is protected by the Federal Confidentiality of Alcohol and Drug Abuse Patient Records regulations: The Federal rules restrict any use of the information to criminally investigate or prosecute any alcohol or drug abuse patient.[facility] CenterIn the event this information is protected by the Federal Confidentiality of Alcohol and Drug Abuse Patient Records regulations: The Federal rules restrict any use of the information to criminally investigate or prosecute any alcohol or drug abuse patient.[facility] Reason for Visit (unrecogniz ed section and content) Reason Comments Physical Therapy Specialty Diagnoses / Procedures Referred By Contac t Referred To Contact Physical Therapy / PHYSICAL THERAPY Diagnoses S/P AKA (above knee amputation), left (HCC) [Z89.612] Procedures PHYSICAL THERAPY EVALUATION HIGH COMPLEX 45 MINS THERAPEUTIC EXERCISES RE, EA 15 MIN. NEW RS PT AMPUTATION Elizabeth Ball, INEZ.PARK ACTIVITIES COORDINATOR 1 [facility] [address] [place] [address] Kath Horton, PT [address] [place] [address] Referral ID Status Reason Start Date Expiration Date V isits Requested Visits Authorized [id number] Authorized 09/20/2022 09/19/2023 99 99 Reason Comments PT Progress Note Specialty Diagnoses / Procedures Referred By Contac t Referred To Contact PHYSICAL THERAPY Diagnoses Acute right-sided low back pain with right-sided sciatica Procedures CONSULT TO PHYSICAL THERAPY Davin August PA-C [address] [place] [address] Pt [facility] [address] [place] [address] Referral ID Status Reason Start Date Expiration Date V isits Requested Visits Authorized [id number] Authorized 09/20/2021 09/19/2022 99 99 Reason Comments Back Pain sinus issues Reason Comments Appointment appointment Reason Comments Insulin Dependent Diabetes Mellitus Reason Comments New Patient Low Back Pain Leg Pain right Specialty Diagnoses / Procedures Referred By Contac t Referred To Contact Diagnoses Acute right-sided low back pain with right-sided sciatica Procedures CONSULT TO MUSC/SPINE/OCC MED OFFICE/OUTPATIENT NEW HIGH MDM 60-74 MINUTES Paulina Severino MD [address] [facility] [address] [place] [address] Referral ID Status Reason Start Date Expiration Date Visits Requested Visits Authorized [id number] Pending Review PCP Requested Referral 12/22/2021 12/22/2022 1 1 Reason Comments PT Eval Reason Comments Patient Question Reason Comments Pain Patient Update phone number change to call him back Orders MRI Reason Onset Date Comments Transition Of Care 03/03/2022 [facility] discharge 03-02-22- initial outreach Reason Comments Transition Of Care hospital vist pain Reason Comments Blood Sugar Reading Reason Onset Date Comments Refill Request 03/25/2022 Reason Comments Established Patient Reason Comments Follow Up back pain Reason Comments MRI Appointment Reason Comments New Patient Reason Comments Future Appointment FUTURE EMG Specialty Diagnoses / Procedures Referred By Contac t Referred To Contact MR IMAGING Diagnoses Spinal stenosis of lumbar region with neurogenic claudication Procedures MRI LUMBAR SPINE WO IVCON MRI SPINAL CANAL LUMBAR W/O CONTRAST MATERIAL Malgorzata Kirkpatrick MD [address] [place] [address] Mr Imaging Referral ID Status Reason Start Date Expiration Date V isits Requested Visits Authorized [id number] Closed Auto-Generate d Referral 04/14/2022 05/14/2023 1 1 Reason Comments Appointment Appointment Reason Comments Appointment Specialty Diagnoses / Procedures Referred By Contac t Referred To Contact CT IMAGING Diagnoses Disorder of artery or arteriole (HCC) Procedures CTA CHEST (GATED) W IVCON CT ANGIOGRAPHY CHEST W/CONTRAST/NONCONTRAST Christi Jones MD [address] [facility] [address] [place] [address] Ct Imaging Referral ID Status Reason Start Date Expiration Date V isits Requested Visits Authorized [id number] Closed Auto-Generate d Referral 04/21/2022 05/21/2023 1 1 Reason Comments Schedule Surgery Reason Onset Date Comments Follow Up 05/20/2022 Reason Comments Orders Reason Onset Date Comments Appointment 05/22/2022 Reason Comments Outside Labs Results [facility] Reason Comments Received Outside Medical Records [facility] re blood sugar results Reason Comments Sign for home care orders Reason Comments Orders [facility] Reason Comments [facility] Reason Comments Post Op Follow Up Post-op follow-up fo r (L) AKA Reason Onset Date Comments Refill Request 06/19/2022 Reason Comments Orders [facility] Reason Comments Orders [facility] (06/23/22) Reason Comments Orders [facility] (1 ) Reason Onset Date Comments ACM DRAKE RN 06/30/2022 Medication ad herence review per [facility] Reason Comments Orders [facility] Reason Comments Follow Up Discharge from snf Reason Comments Orders [facility] Reason Comments Received Outside Medical Records [facility] request for additional documentation for need of CGM 08/03/2022 Reason Comments F/U 3 Month Reason Comments [employer] - Other Reason Comments Received Outside Medical Records [facility] provider Reason Comments Referral Information Reason Comments Received Outside Medical Records [facility] Home visit 10/29/2022 Reason Comments PT Eval Patient Education Specialty Diagnoses / Procedures Referred By Contac t Referred To Contact Physical Therapy / PHYSICAL THERAPY Diagnoses S/P AKA (above knee amputation), left (HCC) [Z89.612] Procedures PHYSICAL THERAPY EVALUATION HIGH COMPLEX 45 MINS THERAPEUTIC EXERCISES RE, EA 15 MIN. NEW RS PT AMPUTATION Elizabeth Ball, HEALTH INFORMATION ASSISTANT.PARK ACTIVITIES COORDINATOR [address] [facility] [address] [place] [address] Kath Horton, PT [address] [place] [address] Reason Onset Date Comments ACM DRAKE RN 11/03/2022 Medication Ad herence review at request of payer. Reason Comments Refill Request Reason Comments PT Progress Note Reason Comments Results Reason Comments Established Patient Follow Up 6-month follow-up Above Knee Amputation Left Reason Onset Date Comments ACM DRAKE RN 12/30/2022 Medication Ad herence review per request of payer Reason Comments Physical Therapy Reason Comments Occult blood positive stool Reason Comments Orders Reason Comments Received Outside Medical Records Home vi sit clinical summary, [facility] 01/29/23 Reason Comments request for outside records [facility] Reason Comments 6 Month Exam 6 month follow nothi ng new to report. 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 review 06/23/23 PVR Reason Comments request for chart notes [facility] Reason Comments Peripheral Vascular Disease (PVD) Shilo farmer s here to review 07/09/23 CTA with runoff Reason Comments Wound Evaluation Right toes Reason Comments Follow Up Feet, toes Reason Comments Consult Lumbar region with n eurogenic claudication Specialty Diagnoses / Procedures Referred By Contac t Referred To Contact Neurology Diagnoses Acute right-sided low back pain with right-sided sciatica Spinal stenosis of lumbar region with neurogenic claudication Procedures CONSULT TO NEUROLOGY OFFICE/OUTPATIENT [facility] 60-74 MINUTES Davin August, LUKEC [address] [place] [id number] Referral ID Status Reason Start Date Expiration Date Visits Requested Visits Authorized [id number] Pending Review PCP Requested Referral 06/09/2023 09/07/2023 1 1 Reason Comments Wound Care Reason Comments Injection reschedule Need Approval to hold Anticoagulation Reason Comments Wound Evaluation 3rd and 4th toes Reason Comments Received Outside Medical Records [facility] Tele Audio visit 08/02/2023 Reason Comments Established Patient Follow Up 4-6 week follow-up Wound Check peripheral artery disease Reason Comments Orders [facility] Reason Comments Transition Of Care Reason Comments Orders [facility] Reason Onset Date Comments Post-Acute Transition 10/28/2023 [facility] TCM PA C Follow up #1 Reason Comments Received Outside Medical Records [facility] for SN, PT, PROPERTY UNDERWRITER to evaluate and treat. 10/21/2023 Reason Comments Received Outside Medical Records [facility] Orders for OT Eval and treat for ADL's 10/29/2023 Reason Onset Date Comments Post-Acute Transition 11/04/2023 [facility] TCM PA C Follow up #2 chart review Reason Comments Question Brenda, [facility], Reason Comments Received Outside Medical Records EduquiaJaquelin MD Reason Comments Post Op 4-6 weeks Right AKA Reason Onset Date Comments Post-Acute Transition 11/16/2023 [facility] CHART REVIEW Reason Onset Date Comments Refill Request 11/20/2023 Reason Onset Date Comments Post-Acute Transition 11/24/2023 [facility] First Outreach Reason Comments Established Patient Follow Up 3-week follow-up R A KA Reason Onset Date Comments Post-Acute Transition 12/01/2023 [facility] Second Outreach Reason Onset Date Comments Post-Acute Transition 12/02/2023 [facility] Second Outreach ( second attempt ) Reason Onset Date Comments Post-Acute Transition 12/08/2023 [facility] Third Outreach Reason Comments Received Outside Medical Records [facility] ([facility]) Mobile physician summary 12/07/2023 Reason Onset Date Comments Post-Acute Transition 12/22/2023 PAC Fifth Outreach Reason Onset Date Comments Post-Acute Transition 12/29/2023 PAC Sixth Outreach Reason Onset Date Comments Population Health Navigation Outreach 12/29/2023 [facility] HCC/ CARE GAPS Reason Onset Date Comments Refill Request 01/03/2024 Reason Onset Date Comments Refill Request 01/11/2024 Reason Comments Patient Update Medication Problem Medication clarifica tion needed Received Outside Medical Records [facility] Telephone visit summary 03/06/2024 Reason Comments Received Outside Medical Records [facility] Reason Comments Recheck Reason Onset Date Comments ACM DRAKE RN 03/21/2024 Medication ad herence review per request of payer Reason Comments Follow Up 4 month Reason Comments Patient Update Reason Onset Date Comments AC DRAKE RN 04/12/2024 Medication ad herence review per request of payer Reason Comments Results Reason Comments Established Patient Follow Up 6-month follow-up - stump check Reason Onset Date Comments ACM DRAKE RN 06/07/2024 Medication Ad herence review per request of payer Reason Comments home care request Recent OV notes Reason Comments Follow Up 3 month Reason Comments Received Outside Medical Records [facility] Verbal order for PT 06/26/2024 Reason Comments Orders [facility] Reason Comments Release Of Medical Records Home Care Recent H&P Reason Comments Cardiology Follow Up Coronary artery dis ease Reason Comments Office Notes Faxed Reason Comments New Patient Evaluation Reason Comments Cough Sweats, sore throat, x 2 days Reason Comments Auth Determination Reason Comments Received Outside Medical Records [facility] PT order 1w1 week of 08/21/2024 Reason Comments Medicare Wellness Exam Reason Comments Orders [facility] Reason Comments Received Outside Medical Records [facility] Plan of care orders. Reason Comments Results Orders Reason Comments Hospital F/U Reason Onset Date Comments Transition Of Care 11/06/2024 TCM Initial H ospital Discharge from [facility] Reason Onset Date Comments Transition Of Care 11/15/2024 TCM F/U Outre ach Reason Comments Cardiology Follow Up vascular surgery as sessment Reason Comments Follow Up Three month Reason Comments CARD Follow Up 3 Month HFrEF Reason Comments Follow Up Hospital Reason Comments Pre-Op Exam Reason Comments Patient Update Patient Question Reason Comments Surgery Arrival Care Teams (unrecognized sec tion and content) Undercar Specialist Relationship Specialty Start Date End Date Paulina Severino MD [address] [facility] [place], [place] [id number] [phone] PCP - General Family Practice 08/20/21 Selvin Robin MD [address] [place] [address] Vascular Surgery 07/09/16 Davin Moran MD [address] [place], [place] [id number] Cardiology 08/11/17 Landen Clement MD [address] [place] [address], [address] [address] Endocrinology 10/15/21 Undercar Specialist Relationship Specialty Start Date End Date Paulina Severino MD [address] [facility] [place], [place] [id number] PCP - General Family Practice 08/20/21 Selvin Robin MD [address] [place] [address] Vascular Surgery 07/09/16 Davin Moran MD [address] [place] [address] Cardiology 08/11/17 Landen Clement MD [address] [place] [address], [address] [place] [address] Endocrinology 10/15/21 Undercar Specialist Relationship Specialty Start Date End Date Paulina Severino MD [address] [facility] [place], [place] [phone] PCP - General Family Practice 08/20/21 Selvin Robin MD [address] [place] [address] Vascular Surgery 07/09/16 Davin Moran MD [address] [place] [address] Cardiology 08/11/17 Landen Clement MD [address] [place] [address] [phone] Endocrinology 10/15/21 Undercar Specialist Relationship Specialty Start Date End Date Paulina Severino MD [address] [facility] [place] [id number] [phone] PCP - General Family Practice 08/20/21 Selvin Robin MD [address] [place] [address] Vascular Surgery 07/09/16 Davin Moran MD [address] [place] [address] [place] [address] Cardiology 08/11/17 Landen Clement MD [address] [place] [address] Endocrinology 10/15/21 Undercar Specialist Relationship Specialty Start Date End Date Paulina Severino MD [address] [facility] [place] [id number] [phone] PCP - General Family Practice 08/20/21 Selvin Robin MD [address] [place] [address] Vascular Surgery 07/09/16 Davin Moran MD [address] [place] [address] Cardiology 08/11/17 Landen Clement MD [address] [place] [address], [address] [place] [address] Endocrinology 10/15/21 Undercar Specialist Relationship Specialty Start Date End Date Paulina Severino MD [address] [place], [place] [id number] [phone] PCP - General Family Practice 08/20/21 Selvin Robin MD [address] [place] [place] [address] Vascular Surgery 07/09/16 Davin Moran MD [address] [place] [address] [place] [address] Cardiology 08/11/17 Landen Clement MD [address] [place] [address], [address] [address] Endocrinology 10/15/21 Undercar Specialist Relationship Specialty Start Date End Date Paulina Severino MD [address] [place] [address] PCP - General Family Practice 08/20/21 Selvin Robin MD [address] [facility] [address] [place] [address] Vascular Surgery 07/09/16 Davin Moran MD [address] [place] [place] [address] Cardiology 08/11/17 Landen Clement MD [address] [place] [address], [address] [place] [address] [phone] Endocrinology 10/15/21 Undercar Specialist Relationship Specialty Start Date End Date Paulina Severino MD [address] [facility] [place] [id number] [phone] PCP - General Family Practice 08/20/21 Selvin Robin MD [address] [place] [address] Vascular Surgery 07/09/16 Davin Moran MD [address] [place] [address] Cardiology 08/11/17 Landen Clement MD [address] [place] [address] Endocrinology 10/15/21 Undercar Specialist Relationship Specialty Start Date End Date Paulina Severino MD [address] [facility] [place], [place] [id number] [phone] PCP - General Family Practice 08/20/21 Selvin Robin MD [address] [place] [address] Vascular Surgery 07/09/16 Davin Moran MD [address] [place] [address] [place] [address] Cardiology 08/11/17 Landen Clement MD [address] [place] [address], [address] [address] Endocrinology 10/15/21 Undercar Specialist Relationship Specialty Start Date End Date Paulina Severino MD [address] [facility] [place] [id number] [phone] PCP - General Family Practice 08/20/21 Selvin Robin MD [address] [place] [address] Vascular Surgery 07/09/16 Davin Moran MD [address] [place] [address] Cardiology 08/11/17 Landen Clement MD [address] [place] [address] Endocrinology 10/15/21 Undercar Specialist Relationship Specialty Start Date End Date Paulina Severino MD [address] [facility] [place] [address] PCP - General Family Practice 08/20/21 Selvin Robin MD [address] [place] [place] [address] Vascular Surgery 07/09/16 Davin Moran MD [address] [place] [address] [place] [address] Cardiology 08/11/17 Landen Clement MD [address] [place] [address] Endocrinology 10/15/21 Undercar Specialist Relationship Specialty Start Date End Date Paulina Severino MD [address] [facility] [place] [address] PCP - General Family Practice 08/20/21 Selvin Robin MD [address] [place] [address] Vascular Surgery 07/09/16 Davin Moran MD [address] [place] [address] Cardiology 08/11/17 Landen Clement MD [address] [place] [address], [address] [phone] Endocrinology 10/15/21 Undercar Specialist Relationship Specialty Start Date End Date Paulina Severino MD [address] [facility] [address] [place], [place] [phone] PCP - General Family Practice 08/20/21 Selvin Robin MD [address] [place] [place] [address] Vascular Surgery 07/09/16 Davin Moran MD [facility] [address] [address] Cardiology 08/11/17 Landen Clement MD [address] [place] [address] Endocrinology 10/15/21 Undercar Specialist Relationship Specialty Start Date End Date Paulina Severino MD [address] [facility] [address] [place], [place] [id number] PCP - General Family Practice 08/20/21 Selvin Robin MD [address] [facility] [address] [place] [address] Vascular Surgery 07/09/16 Davin Moran MD [address] [address] Cardiology 08/11/17 Landen Clement MD [address] [place] [address], [address] [phone] Endocrinology 10/15/21 Undercar Specialist Relationship Specialty Start Date End Date Paulina Severino MD [address] [facility] [address] [place] [id number] [phone] PCP - General Family Practice 08/20/21 Selvin Robin MD [address] [place] [address] Vascular Surgery 07/09/16 Davin Moran MD [address] [place] [place] [address] Cardiology 08/11/17 Landen Clement MD [address] [place] [address], [address] [address] Endocrinology 10/15/21 Undercar Specialist Relationship Specialty Start Date End Date Paulina Severino MD [address] [facility] [address] PCP - General Family Practice 08/20/21 Selvin Robin MD [address] [place] [address] Vascular Surgery 07/09/16 Davin Moran MD [address] [place] [address] [place] [address] Cardiology 08/11/17 Landen Clement MD [address] [place] [address], [address] [address] Endocrinology 10/15/21 Undercar Specialist Relationship Specialty Start Date End Date Paulina Severino MD [address] [facility] [place] [address] PCP - General Family Practice 08/20/21 Selvin Robin MD [address] [place] [address] Vascular Surgery 07/09/16 Davin Moran MD [address] [place] [address] Cardiology 08/11/17 Landen Clement MD [address] [place] [address], [address] [phone] Endocrinology 10/15/21 Undercar Specialist Relationship Specialty Start Date End Date Paulina Severino MD [address] [facility] [address] [place], [place] [id number] PCP - General Family Practice 08/20/21 Selvin Robin MD [address] [place] [place] [address] Vascular Surgery 07/09/16 Davin Moran MD [address] [place] [address] [place] [address] Cardiology 08/11/17 Landen Clement MD [address] [place] [address], [address] [address] Endocrinology 10/15/21 Undercar Specialist Relationship Specialty Start Date End Date Paulina Severino MD [address] [facility] [address] [address] PCP - General Family Practice 08/20/21 Selvin Robin MD [address] [place] [address] Vascular Surgery 07/09/16 Davin Moran MD [address] [place] [address] Cardiology 08/11/17 Landen Clement MD [address] [place] [address], [address] [place] [address] [phone] Endocrinology 10/15/21 Undercar Specialist Relationship Specialty Start Date End Date Paulina Severino MD [address] [facility] [address] PCP - General Family Practice 08/20/21 Selvin Robin MD [address] [place] [address] Vascular Surgery 07/09/16 Davin Moran MD [address] [address] Cardiology 08/11/17 Landen Clement MD [address] [place] [address] Endocrinology 10/15/21 Undercar Specialist Relationship Specialty Start Date End Date Paulina Severino MD [address] [facility] [place] [id number] [phone] PCP - General Family Practice 08/20/21 Selvin Robin MD [address] [place] [address] Vascular Surgery 07/09/16 Davin Moran MD [address] [address] Cardiology 08/11/17 Landen Clement MD [address] [place] [address] Endocrinology 10/15/21 Undercar Specialist Relationship Specialty Start Date End Date Paulina Severino MD [address] [facility] [address] [place] [id number] [phone] PCP - General Family Practice 08/20/21 Selvin Robin MD [address] [place] [address] Vascular Surgery 07/09/16 Davin Moran MD [address] [place] [place] [address] Cardiology 08/11/17 Landen Clement MD [address] [place] [address], [address] [place] [address] Endocrinology 10/15/21 Undercar Specialist Relationship Specialty Start Date End Date Paulina Severino MD [address] [facility] [address] [address] PCP - General Family Practice 08/20/21 Selvin Robin MD [address] [place] [address] Vascular Surgery 07/09/16 Davin Moran MD [address] [place] [address] [place] [address] Cardiology 08/11/17 Landen Clement MD [address] [place] [address], [address] [address] Endocrinology 10/15/21 Undercar Specialist Relationship Specialty Start Date End Date Paulina Severino MD [address] [facility] [address] PCP - General Family Practice 08/20/21 Selvin Robin MD [address] [place] [address] Vascular Surgery 07/09/16 Davin Moran MD [address] [place] [address] Cardiology 08/11/17 Landen Clement MD [address] [place] [address], [address] [address] Endocrinology 10/15/21 Undercar Specialist Relationship Specialty Start Date End Date Paulina Severino MD [address] [facility] [place], [place] [id number] PCP - General Family Practice 08/20/21 Selvin Robin MD [address] [facility] [address] [place] [address] Vascular Surgery 07/09/16 Davin Moran MD [address] [place] [place] [address] Cardiology 08/11/17 Landen Clement MD [address] [place] [address] Endocrinology 10/15/21 Undercar Specialist Relationship Specialty Start Date End Date Paulina Severino MD [address] [facility] [address] [place], [place] 173241 PCP - General Family Medicine 08/20/21 Selvin Robin MD [address] [facility] [address] [place] [address] Vascular Surgery 07/09/16 Davin Moran MD [address] [address] Cardiology 08/11/17 Landen Clement MD [address] [place] [address], [address] [address] Endocrinology 10/15/21 Undercar Specialist Relationship Specialty Start Date End Date Paulina Severino MD [address] [facility] [address] [place] [id number] PCP - General Family Medicine 08/20/21 Selvin Robin MD [address] [facility] [address] [place] [address] Vascular Surgery 07/09/16 Davin Moran MD [address] [place] [address] Cardiology 08/11/17 Landen Clemetn MD [address] [place] [address], [address] [address] Endocrinology 10/15/21 Undercar Specialist Relationship Specialty Start Date End Date Paulina Severino MD [address] [facility] [address] [place], [place] [id number] [phone] PCP - General Family Medicine 08/20/21 Selvin Robin MD [address] [place] [place] [address] Vascular Surgery 07/09/16 Davin Moran MD [address] [address] Cardiology 08/11/17 Landen Clement MD [address] [place] [address] Endocrinology 10/15/21 Undercar Specialist Relationship Specialty Start Date End Date Paulina Severino MD [address] [facility] [address] [address] PCP - General Family Medicine 08/20/21 Selvin Robin MD [address] [facility] [address] [facility] [address] [place] [address] Vascular Surgery 07/09/16 Davin Moran MD [address] [place] [address] [place] [address] Cardiology 08/11/17 Landen Clement MD [address] [place] [address], [address] [phone] Endocrinology 10/15/21 Undercar Specialist Relationship Specialty Start Date End Date Paulina Severino MD [address] [facility] [place], [place] [id number] PCP - General Family Medicine 08/20/21 Selvin Robin MD [address] [facility] [address] [place] [address] Vascular Surgery 07/09/16 Davin Moran MD [address] [address] Cardiology 08/11/17 Landen Clement MD [address] [place] [address] Endocrinology 10/15/21 Undercar Specialist Relationship Specialty Start Date End Date Paulina Severino MD [address] [facility] [address] [place], [place] [id number] PCP - General Family Medicine 08/20/21 [address] [facility] [address] [place] [address] Vascular Surgery 07/09/16 Davin Moran MD [address] [address] Cardiology 08/11/17 Landen Clement MD [address] [place] [address] [phone] Endocrinology 10/15/21 Undercar Specialist Relationship Specialty Start Date End Date Paulina Severino MD [address] [facility] [address] [place] [id number] PCP - General Family Medicine 08/20/21 Selvin Robin MD [address] [place] [address] Vascular Surgery 07/09/16 Davin Moran MD [address] [place] [address] Cardiology 08/11/17 Landen Clement MD [address] [place] [address], [address] [address] Endocrinology 10/15/21 Undercar Specialist Relationship Specialty Start Date End Date Paulina Severino MD [address] [facility] [address] [place] [id number] [phone] PCP - General Family Medicine 08/20/21 Selvin Robin MD [address] [place] [address] Vascular Surgery 07/09/16 Davin Moran MD [address] [place] [address] Cardiology 08/11/17 Landen Clement MD [address] [place] [address], [address] [address] Endocrinology 10/15/21 Undercar Specialist Relationship Specialty Start Date End Date Paulina Severino MD [address] [facility] [address] PCP - General Family Medicine 08/20/21 Selvin Robin MD [address] [place] [address] Vascular Surgery 07/09/16 Davin Moran MD [address] [place] [address] Cardiology 08/11/17 Landen Clement MD [address] [place] [address] [phone] Endocrinology 10/15/21 Undercar Specialist Relationship Specialty Start Date End Date Paulina Severino MD [address] [facility] [address] [place], [place] [id number] PCP - General Family Medicine 08/20/21 Selvin Robin MD [address] [place] [place] [address] Vascular Surgery 07/09/16 Davin Moran MD [address] [place] [address] [place] [address] Cardiology 08/11/17 Landen Clement MD [address] [place] [address] Endocrinology 10/15/21 Undercar Specialist Relationship Specialty Start Date End Date Paulina Severino MD [address] [facility] [place], [place] [phone] PCP - General Family Medicine 08/20/21 Selvin Robin MD [address] [place] [place] [address] Vascular Surgery 07/09/16 Davin Moran MD [address] [place] [address] Cardiology 08/11/17 Landen Clement MD [address] [place] [address], [address] [phone] Endocrinology 10/15/21 Undercar Specialist Relationship Specialty Start Date End Date Paulina Severino MD [address] [facility] [address] [place] [id number] PCP - General Family Medicine 08/20/21 Selvin Robin MD [address] [place] [place] [address] Vascular Surgery 07/09/16 Davin Moran MD [address] [place] [address] [place] [address] Cardiology 08/11/17 Landen Clement MD [address] [place] [address], [address] [place] [address] Endocrinology 10/15/21 Undercar Specialist Relationship Specialty Start Date End Date Paulina Severino MD [address] [facility] [address] [address] PCP - General Family Medicine 08/20/21 Selvin Robin MD [address] [facility] [address] [place] [address] Vascular Surgery 07/09/16 Davin Moran MD [address] [address] Cardiology 08/11/17 Landen Clement MD [address] [place] [address], [address] [place] [address] Endocrinology 10/15/21 Undercar Specialist Relationship Specialty Start Date End Date Paulina Severino MD [address] [facility] [place] [address] PCP - General Family Medicine 08/20/21 Selvin Robin MD [address] [place] [address] Vascular Surgery 07/09/16 Davin Moran MD [address] [place] [address] Cardiology 08/11/17 Landen Clement MD [address] [place] [address], [address] [address] Endocrinology 10/15/21 Undercar Specialist Relationship Specialty Start Date End Date Paulina Severino MD [address] [facility] [place] [address] PCP - General Family Medicine 08/20/21 Selvin Robin MD [address] [place] [place] [address] Vascular Surgery 07/09/16 Davin Moran MD [address] [address] Cardiology 08/11/17 Landen Clement MD [address] [place] [address], [address] [address] Endocrinology 10/15/21 Undercar Specialist Relationship Specialty Start Date End Date Paulina Severino MD [address] [facility] [place] [address] PCP - General Family Medicine 08/20/21 Selvin Robin MD [address] [place] [address] Vascular Surgery 07/09/16 Davin Moran MD [address] [place] [address] Cardiology 08/11/17 Landen Clement MD [address] [place] [address], [address] [place] [address] Endocrinology 10/15/21 Undercar Specialist Relationship Specialty Start Date End Date Paulina Severino MD [address] [facility] [address] [place], [place] 8664[address] [phone] PCP - General Family Medicine 08/20/21 Selvin Robin MD [address] [place] [address] Vascular Surgery 07/09/16 Davin Moran MD [address] [place] [address] Cardiology 08/11/17 Landen Clement MD [address] [place] [id number] Endocrinology 10/15/21 Undercar Specialist Relationship Specialty Start Date End Date Paulina Severino MD [address] [facility] [address] [place] [address] [phone] PCP - General Family Medicine 08/20/21 Selvin Robin MD [address] [place] [address] [place] [address] Vascular Surgery 07/09/16 Davin Moran MD [address] [address] Cardiology 08/11/17 Landen Clement MD [address] [place] [address] Endocrinology 10/15/21 Undercar Specialist Relationship Specialty Start Date End Date Paulina Severino MD [address] [facility] [place] [address] PCP - General Family Medicine 08/20/21 Selvin Robin MD [address] [place] [address] [place] [address] Vascular Surgery 07/09/16 Davin Moran MD [address] [place] [address] [place] [address] Cardiology 08/11/17 Landen Clement MD [address] [place] [address], [address] [address] Endocrinology 10/15/21 Undercar Specialist Relationship Specialty Start Date End Date Paulina Severino MD [address] [facility] [place], [place] [address] [phone] PCP - General Family Medicine 08/20/21 Selvin Robin MD [address] [place] [address] [place] [address] Vascular Surgery 07/09/16 Davin Moran MD [address] [place] [address] [place] [address] Cardiology 08/11/17 Landen Clement MD [address] [place] [address], [address] [place] [address] Endocrinology 10/15/21 Undercar Specialist Relationship Specialty Start Date End Date Paulina Severino MD [address] [facility] [place], [place] [id number] [phone] PCP - General Family Medicine 08/20/21 Selvin Robin MD [address] [place] [address] [place] [address] Vascular Surgery 07/09/16 Davin Moran MD [address] [place] [address] [place] [address] Cardiology 08/11/17 Landen Clement MD [address] [place] [address], [address] [address] Endocrinology 10/15/21 Undercar Specialist Relationship Specialty Start Date End Date Paulina Severino MD [address] [facility] [address] [place] [id number] PCP - General Family Medicine 08/20/21 Selvin Robin MD [address] [place] [address] [place] [address] Vascular Surgery 07/09/16 Davin Moran MD [address] [place] [address] [place] [address] Cardiology 08/11/17 Landen Clement MD [address] [place] [address], [address] [address] Endocrinology 10/15/21 Undercar Specialist Relationship Specialty Start Date End Date Paulina Severino MD [address] [facility] [place] 279321 PCP - General Family Medicine 08/20/21 Selvin Robin MD [address] [facility] [address] [place] [address] Vascular Surgery 07/09/16 Davin Moran MD [address] [place] [address] [place] [address] Cardiology 08/11/17 Landen Clement MD [address] [place] [address], [address] [place] [address] Endocrinology 10/15/21 Undercar Specialist Relationship Specialty Start Date End Date Paulina Severino MD [address] [facility] [place] [id number] [phone] PCP - General Family Medicine 08/20/21 Selvin Robin MD [address] [place] [address] [place] [address] Vascular Surgery 07/09/16 Davin Moran MD [address] [place] [address] [place] [address] Cardiology 08/11/17 Landen Clement MD [address] [place] [address], [address] [address] Endocrinology 10/15/21 Undercar Specialist Relationship Specialty Start Date End Date Paulina Severino MD [address] [facility] [place] [id number] PCP - General Family Medicine 08/20/21 Selvin Robin MD [address] [place] [address] [place] [address] Vascular Surgery 07/09/16 Davin Moran MD [address] [place] [address] Cardiology 08/11/17 Landen Clement MD [address] [place] [address], [address] [place] [address] Endocrinology 10/15/21 Undercar Specialist Relationship Specialty Start Date End Date Paulina Severino MD [address] [place] [address] PCP - General Family Medicine 08/20/21 Selvin Robin MD [address] [place] [address] [place] [address] Vascular Surgery 07/09/16 Davin Moran MD [address] [place] [address] [place] [address] Cardiology 08/11/17 Landen Clement MD [address] [place] [address], [address] [address] Endocrinology 10/15/21 Undercar Specialist Relationship Specialty Start Date End Date Paulina Severino MD [address] [facility] [place] [id number] PCP - General Family Medicine 08/20/21 [address] [facility] [address] [place] [address] Vascular Surgery 07/09/16 Davin Moran MD [address] [address] Cardiology 08/11/17 Landen Clement MD [address] [place] [address], [address] [address] Endocrinology 10/15/21 Undercar Specialist Relationship Specialty Start Date End Date Paulina Severino MD [address] [facility] [place] [id number] PCP - General Family Medicine 08/20/21 [address] [facility] [address] [place] [address] Vascular Surgery 07/09/16 Davin Moran MD [address] [address] Cardiology 08/11/17 Landen Clement MD [address] [place] [address], [address] [phone] Endocrinology 10/15/21 Undercar Specialist Relationship Specialty Start Date End Date Paulina Severino MD [address] [facility] [place] [id number] PCP - General Family Medicine 08/20/21 Selvin Robin MD [address] [facility] [address] [place] [address] Vascular Surgery 07/09/16 Davin Moran MD [address] [place] [address] [place] [address] Cardiology 08/11/17 Landen Clement MD [address] [place] [address], [address] [address] Endocrinology 10/15/21 Undercar Specialist Relationship Specialty Start Date End Date Paulina Severino MD [address] [facility] [place] [address] PCP - General Family Medicine 08/20/21 Selvin Robin MD [address] [facility] [address] [place] [address] Vascular Surgery 07/09/16 Davin Moran MD [address] [place] [address] [place] [address] Cardiology 08/11/17 Landen Clement MD [address] [place] [address], [address] [address] Endocrinology 10/15/21 Undercar Specialist Relationship Specialty Start Date End Date Paulina Severino MD [address] [facility] [place] [address] PCP - General Family Medicine 08/20/21 Selvin Robin MD [address] [place] [address] [place] [address] Vascular Surgery 07/09/16 Davin Moran MD [address] [place] [address] [place] [address] Cardiology 08/11/17 Landen Clement MD [address] [place] [address], [address] [address] Endocrinology 10/15/21 Undercar Specialist Relationship Specialty Start Date End Date Paulina Severino MD [address] [facility] [place], [place] 962211 PCP - General Family Medicine 08/20/21 Selvin Robin MD [address] [place] [address] [place] [address] Vascular Surgery 07/09/16 Davin Moran MD [address] [place] [address] [place] [address] Cardiology 08/11/17 Landen Clement MD [address] [place] [address], [address] [address] Endocrinology 10/15/21 Undercar Specialist Relationship Specialty Start Date End Date Paulina Severino MD [address] [facility] [place], [place] 869981 PCP - General Family Medicine 08/20/21 Selvin Robin MD [address] [place] [address] [place] [address] Vascular Surgery 07/09/16 Davin Moran MD [address] [place] [address] [place] [address] Cardiology 08/11/17 Landen Clement MD [address] [place] [address], [address] [place] [address] [phone] Endocrinology 10/15/21 Undercar Specialist Relationship Specialty Start Date End Date Paulina Severino MD [address] [facility] [place] [address] PCP - General Family Medicine 08/20/21 Selvin Robin MD [address] [facility] [address] [place] [phone] Vascular Surgery 07/09/16 Davin Moran MD [address] [place] [address] [place] [address] Cardiology 08/11/17 Landen Clement MD [address] [place] [address] [phone] Endocrinology 10/15/21 Undercar Specialist Relationship Specialty Start Date End Date Paulina Severino MD [address] [facility] [place], [place] 751811 PCP - General Family Medicine 08/20/21 Selvin Robin MD [address] [facility] [address] [place] [address] Vascular Surgery 07/09/16 Davin Moran MD [address] [place] [address] [place] [address] Cardiology 08/11/17 Landen Clement MD [address] [place] [address] [phone] Endocrinology 10/15/21 Undercar Specialist Relationship Specialty Start Date End Date Paulina Severino MD [address] [facility] [place] 706241 PCP - General Family Medicine 08/20/21 Selvin Robin MD [address] [place] [address] [place] [phone] Vascular Surgery 07/09/16 Davin Moran MD [address] [facility] [address] [place] [address] Cardiology 08/11/17 Landen Clement MD [address] [place] [address] Endocrinology 10/15/21 Undercar Specialist Relationship Specialty Start Date End Date Paulina Severino MD [address] [facility] [address] PCP - General Family Medicine 08/20/21 Selvin Robin MD [address] [facility] [address] [place] [phone] Vascular Surgery 07/09/16 Davin Moran MD [address] [address] Cardiology 08/11/17 Landen Clement MD [address] [place] [address] Endocrinology 10/15/21 Undercar Specialist Relationship Specialty Start Date End Date Paulina Severino MD [address] [facility] [place] 737561 PCP - General Family Medicine 08/20/21 Selvin Robin MD [address] [place] [address] [place] [phone] Vascular Surgery 07/09/16 Davin Moran MD [address] [place] [address] [place] [address] Cardiology 08/11/17 Landen Clement MD [address] [place] [address] Endocrinology 10/15/21 Undercar Specialist Relationship Specialty Start Date End Date Paulina Severino MD [address] [facility] [place] 214621 PCP - General Family Medicine 08/20/21 Selvin Robin MD [address] [place] [address] [place] [phone] Vascular Surgery 07/09/16 Davin Moran MD [address] [place] [address] [place] [address] Cardiology 08/11/17 Landen Clement MD [address] [place] [address] Endocrinology 10/15/21 Undercar Specialist Relationship Specialty Start Date End Date Paulina Severino MD [address] [facility] [place] [address] PCP - General Family Medicine 08/20/21 Selvin Robin MD [address] [place] [address] [place] [phone] Vascular Surgery 07/09/16 Davin Moran MD [address] [place] [address] [place] [address] Cardiology 08/11/17 Landen Clement MD [address] [place] [address] Endocrinology 10/15/21 Undercar Specialist Relationship Specialty Start Date End Date Paulina Severino MD [address] [facility] [address] PCP - General Family Medicine 08/20/21 Selvin Robin MD [address] [place] [address] [place] [phone] Vascular Surgery 07/09/16 Davin Moran MD [address] [place] [address] [place] [address] Cardiology 08/11/17 Landen Clement MD [address] [place] [address] Endocrinology 10/15/21 Undercar Specialist Relationship Specialty Start Date End Date Paulina Severino MD [address] [facility] [address] PCP - General Family Medicine 08/20/21 Selvin Robin MD [address] [place] [address] [place] [phone] Vascular Surgery 07/09/16 Davin Moran MD [address] [place] [address] [place] [address] Cardiology 08/11/17 Landen Clement MD [address] [place] [address], [address] [address] Endocrinology 10/15/21 Undercar Specialist Relationship Specialty Start Date End Date Paulina Severino MD [address] [place], [place] 818121 PCP - General Family Medicine 08/20/21 Selvin Robin MD [address] [place] [address] [place] [phone] Vascular Surgery 07/09/16 Davin Moran MD [address] [place] [address] [place] [address] Cardiology 08/11/17 Landen Clement MD [address] [place] [address] Endocrinology 10/15/21 Undercar Specialist Relationship Specialty Start Date End Date Paulina Severino MD [address] [facility] [address] [address] PCP - General Family Medicine 08/20/21 Selvin Robin MD [address] [place] [address] [place] [phone] Vascular Surgery 07/09/16 Davin Moran MD [address] [place] [address] [place] [address] Cardiology 08/11/17 Landen Clement MD [address] [place] [address], [address] [address] Endocrinology 10/15/21 Undercar Specialist Relationship Specialty Start Date End Date Paulina Severino MD [address] [facility] [place], [place] 155681 PCP - General Family Medicine 08/20/21 Selvin Robin MD [address] [facility] [address] [place] [phone] Vascular Surgery 07/09/16 Davin Moran MD [address] [place] [address] [place], [place] [phone] Cardiology 08/11/17 Landen Clement MD [address] [place] [address] Endocrinology 10/15/21 Undercar Specialist Relationship Specialty Start Date End Date Paulina Severino MD [address] [facility] [address] [address] PCP - General Family Medicine 08/20/21 Selvin Robin MD [address] [facility] [address] [facility] [address] [place] [phone] Vascular Surgery 07/09/16 Davin Moran MD [address] [place] [address] [place] [address] Cardiology 08/11/17 Landen Clement MD [address] [place] [address], [address] [phone] Endocrinology 10/15/21 Undercar Specialist Relationship Specialty Start Date End Date Paulina Severino MD [address] [facility] [place], [place] 457421 PCP - General Family Medicine 08/20/21 Sel[address] [facility] [address] [place] [address] Vascular Surgery 07/09/16 Davin Moran MD [address] [address] Cardiology 08/11/17 Landen Clement MD [address] [place] [address] [phone] Endocrinology 10/15/21 Undercar Specialist Relationship Specialty Start Date End Date Paulina Severino MD [address] [facility] [address] [address] PCP - General Family Medicine 08/20/[address] [facility] [address] [place] [address] Vascular Surgery 07/09/16 Davin Moran MD [address] [place] [address] Cardiology 08/11/17 Landen Clement MD [address] [place] [address] [phone] Endocrinology 10/15/21 Undercar Specialist Relationship Specialty Start Date End Date Paulina Severino MD [address] [facility] [place] [id number] PCP - General Family Medicine 08/20/21 Selvin Robin MD 1 [place] [facility] [address] [place] [address] Vascular Surgery 07/09/16 Davin Moran MD [address] [place] [address] [place] [address] Cardiology 08/11/17 Landen Clement MD [address] [place] [address], [facility] [address] [place], [place] [phone] Endocrinology 10/15/21 Dylan Martinez MD 1 [place] [address] Wound Care 07/16/23 Undercar Specialist Relationship Specialty Start Date End Date Paulina Severino MD [address] [place] [address] PCP - General Family Medicine 08/20/21 Selvin Robin MD 1 [place] [facility] [address] [place] [phone] Vascular Surgery 07/09/16 Davin Moran MD [address] [place] [address] [place] [address] Cardiology 08/11/17 Landen Clement MD [address] [place] [address], [facility] [address] [place], [place] [phone] Endocrinology 10/15/21 Dylan Martinez MD 1 [place] [address] Wound Care 07/16/23 Undercar Specialist Relationship Specialty Start Date End Date Paulina Severino MD [address] [facility] [address] [place] [address] PCP - General Family Medicine 08/20/21 Selvin Robin MD 1 [place] [facility] [address] [place] [address] Vascular Surgery 07/09/16 Davin Moran MD [address] [place] [address] [place] [address] Cardiology 08/11/17 Landen Clement MD [address] [place] [address], [address] [place] [address] Endocrinology 10/15/21 Dylan Martinez MD 1 [place] [address] Wound Care 07/16/23 Undercar Specialist Relationship Specialty Start Date End Date Paulina Severino MD [address] [facility] [address] [place] [address] PCP - General Family Medicine 08/20/21 Selvin Robin MD 1 [place] [facility] [address] [place] [address] Vascular Surgery 07/09/16 Davin Moran MD [address] [place] [address] [place] [address] Cardiology 08/11/17 Landen Clement MD [address] [place] [address], [address] [address] Endocrinology 10/15/21 Dylan Martinez MD [address] [place] [address] Wound Care 07/16/23 Undercar Specialist Relationship Specialty Start Date End Date Paulina Severino MD [address] [facility] [place], [place] 289471 PCP - General Family Medicine 08/20/21 Selvin Robin MD [address] [facility] [address] [place] [phone] Vascular Surgery 07/09/16 Davin Moran MD [address] [place] [address] [address] [place] [address] Cardiology 08/11/17 Landen Clement MD [address] [place] [address] Endocrinology 10/15/21 Dylan Martinez MD [address] [place] [address] Wound Care 07/16/23 Undercar Specialist Relationship Specialty Start Date End Date Paulina Severino MD [address] [facility] [address] [place], [place] [id number] PCP - General Family Medicine 08/20/21 Selvin Robin MD [address] [facility] [address] [place] [address] Vascular Surgery 07/09/16 Davin Moran MD [address] [place] [address] [place] [address] Cardiology 08/11/17 Landen Clement MD [address] [place] [address], [address] [place] [address] Endocrinology 10/15/21 Dylan Martinez MD [address] [place] [place] [address] Wound Care 07/16/23 Undercar Specialist Relationship Specialty Start Date End Date Paulina Severino MD [address] [facility] [address] [address] PCP - General Family Medicine 08/20/21 Selvin Robin MD [address] [facility] [address] [place] [address] Vascular Surgery 07/09/16 Davin Moran MD [address] [place] [address] [place] [address] Cardiology 08/11/17 Landen Clement MD [address] [place] [address], [address] [place] [address] Endocrinology 10/15/21 Dylan Martinez MD [address] [facility] [place], [place] [phone] Wound Care 07/16/23 Undercar Specialist Relationship Specialty Start Date End Date Paulina Severino MD [address] [facility] [address] [address] PCP - General Family Medicine 08/20/21 Selvin Robin MD 1 [facility] [facility] [address] [place] [address] Vascular Surgery 07/09/16 Davin Moran MD [address] [place] [address] [place] [address] Cardiology 08/11/17 Landen Clement MD [address] [place] [address], [address] [phone] Endocrinology 10/15/21 Dylan Martinez MD 1 [place] [address] Wound Care 07/16/23 Undercar Specialist Relationship Specialty Start Date End Date Paulina Severino MD [address] [facility] [address] [address] PCP - General Family Medicine 08/20/[address] [facility] [address] [place] [phone] Vascular Surgery 07/09/16 Davin Moran MD [address] [place] [address] [place] [address] Cardiology 08/11/17 Landen Clement MD [address] [place] [address], [address] [place] [address] [phone] Endocrinology 10/15/21 Dylan Martinez MD 1 [place] [address] Wound Care 07/16/23 Undercar Specialist Relationship Specialty Start Date End Date Paulina Severino MD [address] [facility] [address] [address] PCP - General Family Medicine 08/20/21 Selvin Robin MD 1 [facility] [address] [place] [address] Vascular Surgery 07/09/16 Davin Moran MD [address] [place] [address] [place] [address] Cardiology 08/11/17 Landen Clement MD [address] [place] [address], [address] [place] [address] Endocrinology 10/15/21 Dylan Martinez MD 1 [place] [address] Wound Care 07/16/23 Undercar Specialist Relationship Specialty Start Date End Date Paulina Severino MD [address] [facility] [address] [address] PCP - General Family Medicine 08/20/21 [address] [facility] [address] [place] [address] Vascular Surgery 07/09/16 Davin Moran MD [address] [place] [address] [place] [address] Cardiology 08/11/17 Landen Clement MD [address] [place] [address], [address] [phone] Endocrinology 10/15/21 Dylan Martinez MD [address] [place] [address] Wound Care 07/16/23 Undercar Specialist Relationship Specialty Start Date End Date Paulina Severino MD [address] [facility] [place] [id number] PCP - General Family Medicine 08/20/21 Selvin Robin MD [address] [facility] [address] [place] [phone] Vascular Surgery 07/09/16 Davin Moran MD 224 [facility] [place] [address] [place], [place] [phone] Cardiology 08/11/17 Landen Clement MD [address] [place] [address], [address] [address] Endocrinology 10/15/21 Dylan Martinez MD [address] [place] [address] Wound Care 07/16/23 Marianna Klein MA Network Navigator Post Acute Care 10/19/23 Undercar Specialist Relationship Specialty Start Date End Date Paulina Severino MD [address] [facility] [address] [place] [id number] PCP - General Family Medicine 08/20/21 Selvin Robin MD [address] [facility] [address] [place] [phone] Vascular Surgery 07/09/16 Davin Moran MD [address] [place] [address] [place], [place] [phone] (Fax) Cardiology 08/11/17 Landen Clement MD [address] [place] [address], [facility] [address] [place], [place] [phone] Endocrinology 10/15/21 Dylan Martinez MD [address] [facility] [place], [place] [phone] Wound Care 07/16/23 Marianna Klein MA Network Navigator Post Acute Care 10/19/23 Undercar Specialist Relationship Specialty Start Date End Date Paulina Severino MD [address] [facility] [address] [address] PCP - General Family Medicine 08/20/21 Selvin Robin MD [address] [facility] [address] [place] [phone] Vascular Surgery 07/09/16 Davin Moran MD [address] [place] [address] [place], [place] [phone] (Fax) Cardiology 08/11/17 Landen Clement MD [address] [place] [address], [address] [place], [place] [phone] Endocrinology 10/15/21 Dylan Martinez MD 1 [place] [address] Wound Care 07/16/23 Marianna Klein MA Network Navigator Post Acute Care 10/19/23 Undercar Specialist Relationship Specialty Start Date End Date Paulina Severino MD [address] [facility] [address] PCP - General Family Medicine 08/20/21 [address] MD [address] [facility] [address] [place] [phone] Vascular Surgery 07/09/16 Davin Moran MD [address] [place] [address] [address] [place] [address] Cardiology 08/11/17 Landen Clement MD [address] [place] [address], [address] [place] [address] Endocrinology 10/15/21 Dylan Martinez MD 1 [place] [address] Wound Care 07/16/23 Marianna Klein MA Network Navigator Post Acute Care 10/19/23 Undercar Specialist Relationship Specialty Start Date End Date Paulina Severino MD [address] [facility] [place], [place] 557731 PCP - General Family Medicine 08/20/21 Selvin Robin MD [facility] [address] [place] [address] Vascular Surgery 07/09/16 Davin Moran MD [address] [place] [address] [place] [address] (Fax) Cardiology 08/11/17 Landen Clement MD [address] [place] [address], [facility] [address] [place], [place] [phone] Endocrinology 10/15/21 Dylan Martinez MD [address] [place] [address] Wound Care 07/16/23 Marianna Klein MA Network Navigator Post Acute Care 10/19/23 Undercar Specialist Relationship Specialty Start Date End Date Paulina Severino MD [address] [facility] [address] [place], [place] [address] PCP - General Family Medicine 08/20/21 Selvin Robin MD 1 [facility] [address] [place] [phone] Vascular Surgery 07/09/16 Davin Moran MD [address] [place] [address] [place] [address] (Fax) Cardiology 08/11/17 Landen Clement MD [address] [place] [address], [address] [place], [place] [phone] Endocrinology 10/15/21 Dylan Martinez MD [address] [place] [address] Wound Care 07/16/23 Marianna Klein MA Network Navigator Post Acute Care 10/19/23 Undercar Specialist Relationship Specialty Start Date End Date Paulina Severino MD [address] [facility] [address] [place], [place] [address] PCP - General Family Medicine 08/20/21 Selvin Robin MD 1 [facility] [address] [place] [phone] Vascular Surgery 07/09/16 Davin Moran MD [address] [place] [address] [address] [place], [place] [id number] Cardiology 08/11/17 Landen Clement MD [address] [place] [address], [address] [place], [place] [phone] Endocrinology 10/15/21 Dylan Martinez MD 1 [place] [address] Wound Care 07/16/23 Fritz Payan, RN Primary Care Channeling Machine Operator Family Medicine 11/16/23 Undercar Specialist Relationship Specialty Start Date End Date Paulina Severino MD [address] [facility] [address] [place], [place] [id number] PCP - General Family Medicine 08/20/21 Selvin Robin MD 1 [facility] [address] [place] [phone] Vascular Surgery 07/09/16 Davin Moran MD [address] [facility] [address] [place] [address] Cardiology 08/11/17 Landen Clement MD [address] [place] [address] Endocrinology 10/15/21 Dylan Martinez MD 1 [facility] [place], [place] [phone] Wound Care 07/16/23 Fritz Payan, RN Primary Care Channeling Machine Operator Family Medicine 11/16/23 Undercar Specialist Relationship Specialty Start Date End Date Paulina Severino MD [address] [facility] [place] [address] PCP - General Family Medicine 08/20/21 Selvin Robin MD 1 [facility] [address] [place] [phone] Vascular Surgery 07/09/16 Davin Moran MD [address] [facility] [address] [place] [address] Cardiology 08/11/17 Landen Clement MD [address] [place] [address] Endocrinology 10/15/21 Dylan Martinez MD 1 [place], [place] [phone] Wound Care 07/16/23 Fritz Payan, RN Primary Care Channeling Machine Operator Family Medicine 11/16/23 Undercar Specialist Relationship Specialty Start Date End Date Paulina Severino MD [address] [facility] [place] [address] PCP - General Family Medicine 08/20/21 Selvin Robin MD [address] [facility] [address] [place] [phone] Vascular Surgery 07/09/16 Davin Moran MD [address] [place] [address] [place], [place] [phone] Cardiology 08/11/17 Landen Clement MD [address] [place] [address], [address] [place] [address] Endocrinology 10/15/21 Dylan Martinez MD 1 [facility] [place], [place] [phone] Wound Care 07/16/23 Fritz Payan RN Primary Care Channeling Machine Operator Family Medicine 11/16/23 Undercar Specialist Relationship Specialty Start Date End Date Paulina Severino MD [address] [facility] [place] [address] PCP - General Family Medicine 08/20/21 Selvin Robin MD [address] [facility] [address] [place] [phone] Vascular Surgery 07/09/16 Davin Moran MD [address] [place] [address] [place] [address] Cardiology 08/11/17 Landen Clement MD [address] [place] [address] Endocrinology 10/15/21 Dylan Martinez MD [address] [place] [address] Wound Care 07/16/23 Fritz Payan, RN Primary Care Channeling Machine Operator Family Medicine 11/16/23 Undercar Specialist Relationship Specialty Start Date End Date Paulina Severino MD [address] [facility] [address] PCP - General Family Medicine 08/20/21 Selvin Robin MD 1 [facility] [address] [place] [address] Vascular Surgery 07/09/16 Davin Moran MD [address] [facility] [address] [place] [address] Cardiology 08/11/17 Landen Clement MD [address] [place] [address] Endocrinology 10/15/21 Dylan Martinez MD 1 [place] [address] Wound Care 07/16/23 Fritz Payan RN Primary Care Channeling Machine Operator Family Medicine 11/16/23 Undercar Specialist Relationship Specialty Start Date End Date Paulina Severino MD [address] [facility] [address] [address] [place], [place] 287881 PCP - General Family Medicine 08/20/21 Selvin Robin MD [address] [facility] [address] [place] [phone] Vascular Surgery 07/09/16 Davin Moran MD [address] [place] [address] [place] [address] Cardiology 08/11/17 Landen Clement MD [address] [place] [address], [address] [place], [place] [phone] Endocrinology 10/15/21 Dylan Martinez MD [address] [place] [address] Wound Care 07/16/23 Fritz Payan, RN Primary Care Channeling Machine Operator Family Medicine 11/16/23 Undercar Specialist Relationship Specialty Start Date End Date Paulina Severino MD [address] [facility] [address] PCP - General Family Medicine 08/20/21 Selvin Robin MD [address] [facility] [address] [place] [phone] Vascular Surgery 07/09/16 Davin Moran MD [address] [place] [address] [place] [address] Cardiology 08/11/17 Landen Clement MD [address] [place] [address], [address] [place] [address] Endocrinology 10/15/21 Dylan Martinez MD 1 [place] [address] Wound Care 07/16/23 Fritz Payan, RN Primary Care Channeling Machine Operator Family Medicine 11/16/23 Undercar Specialist Relationship Specialty Start Date End Date Paulina Severino MD [address] [facility] [address] [place], [place] 9[address]201 PCP - General Family Medicine 08/20/21 [address] [facility] [address] [place] [phone] Vascular Surgery 07/09/16 Davin Moran MD 224 [facility] [address] [place], [place] [phone] Cardiology 08/11/17 Landen Clement MD [address] [place] [address], [address] [place] [address] Endocrinology 10/15/21 Dylan Martinez MD 1 [place] [address] Wound Care 07/16/23 Fritz Payan, SACHI Primary Care Channeling Machine Operator Family Medicine 11/16/23 12/28/23 Undercar Specialist Relationship Specialty Start Date End Date Paulina Severino MD [address] [facility] [place] [place] 146941 PCP - General Family Medicine 08/20/21 Selvin Robin MD [address] [place] [address] [place] [address] Vascular Surgery 07/09/16 Davin Moran MD [address] [place] [address] [place] [address] Cardiology 08/11/17 Landen Clement MD [address] [place] [address], [facility] [address] [place], [place] [phone] Endocrinology 10/15/21 Dylan Martinez MD [address] [place] [address] [place], [place] [phone] Wound Care 07/16/23 Undercar Specialist Relationship Specialty Start Date End Date Paulina Severino MD [address] [facility] [place] [address] PCP - General Family Medicine 08/20/21 Selvin Robin MD [address] [place] [address] [place] [address] Vascular Surgery 07/09/16 Davin Moran MD [address] [place] [address] [place] [address] Cardiology 08/11/17 Landen Clement MD [address] [place] [address], [address] [place], [place] [phone] Endocrinology 10/15/21 Dylan Martinez MD [address] [place] [address] Wound Care 07/16/23 Undercar Specialist Relationship Specialty Start Date End Date Paulina Severino MD [address] [facility] [address] [address] [place], [place] 493981 PCP - General Family Medicine 08/20/21 Selvin Robin MD [address] [place] [address] [place] [address] Vascular Surgery 07/09/16 Davin Moran MD [address] [place] [address] [place] [address] Cardiology 08/11/17 Landen Clement MD [address] [place] [address], [address] [place] [address] Endocrinology 10/15/21 Dylan Martinez MD [address] [place] [address] Wound Care 07/16/23 Undercar Specialist Relationship Specialty Start Date End Date Paulina Severino MD [address] [facility] [address] PCP - General Family Medicine 08/20/21 Selvin Robin MD [address] [place] [address] [place] [phone] Vascular Surgery 07/09/16 Davin Moran MD [address] [place] [address] [place] [address] Cardiology 08/11/17 Landen Clement MD [address] [place] [address], [address] [place] [address] Endocrinology 10/15/21 Dylan Martinez MD [address] [place] [address] Wound Care 07/16/23 Undercar Specialist Relationship Specialty Start Date End Date Paulina Severino MD [address] [facility] [address] PCP - General Family Medicine 08/20/[address] [facility] [address] [place] [phone] Vascular Surgery 07/09/16 Davin Moran MD [address] [place] [address] [address] [place], [place] [phone] Cardiology 08/11/17 Landen Clement MD [address] [place] [address] Endocrinology 10/15/21 Dylan Martinez MD 1 [place] [address] Wound Care 07/16/23 Undercar Specialist Relationship Specialty Start Date End Date Paulina Severino MD [address] [facility] [address] [address] [place], [place] 973031 PCP - General Family Medicine 08/20/[address] [facility] [address] [place] [phone] Vascular Surgery 07/09/16 Davin Moran MD [address] [place] [address] [place] [address] Cardiology 08/11/17 Landen Clement MD [address] [place] [address], [address] [address] Endocrinology 10/15/21 Dylan Martinez MD [address] [place] [address] Wound Care 07/16/23 Undercar Specialist Relationship Specialty Start Date End Date Paulina Severino MD [address] [facility] [address] [place] 154891 PCP - General Family Medicine 08/20/21 Selvin Robin MD [address] [facility] [address] [place] [address] Vascular Surgery 07/09/16 Davin Moran MD [address] [place] [address] [place] [address] Cardiology 08/11/17 Landen Clement MD [address] [place] [address] Endocrinology 10/15/21 Dylan Martinez MD [address] [place] [address] Wound Care 07/16/23 Undercar Specialist Relationship Specialty Start Date End Date Paulina Severino MD [address] [facility] [address] [place] [id number] PCP - General Family Medicine 08/20/21 Selvin Robin MD [address] [place] [address] [place] [address] Vascular Surgery 07/09/16 Davin Moran MD [address] [place] [address] [place] [address] Cardiology 08/11/17 Landen Clement MD [address] [place] [address], [facility] [address] [place], [place] [phone] Endocrinology 10/15/21 Dylan Martinez MD [address] [place] [address] Wound Care 07/16/23 Undercar Specialist Relationship Specialty Start Date End Date Paulina Severino MD [address] [facility] [place] [address] PCP - General Family Medicine 08/20/21 Selvin Robin MD [address] [place] [address] [place] [phone] Vascular Surgery 07/09/16 Davin Moran MD [address] [place] [address] [place] [address] Cardiology 08/11/17 Landen Clement MD [address] [place] [address], [address] [place], [place] [phone] Endocrinology 10/15/21 Dylan Martinez MD [address] [place] [address] Wound Care 07/16/23 Undercar Specialist Relationship Specialty Start Date End Date Paulina Severino MD [address] [facility] [address] PCP - General Family Medicine 08/20/21 Selvin Robin MD [address] [facility] [address] [place] [phone] Vascular Surgery 07/09/16 Davin Moran MD [address] [place] [address] [place] [address] Cardiology 08/11/17 Landen Clement MD [address] [place] [address], [address] [place] [address] Endocrinology 10/15/21 Dylan Martinez MD 1 [place] [address] Wound Care 07/16/23 Undercar Specialist Relationship Specialty Start Date End Date Paulina Severino MD [address] [facility] [address] PCP - General Family Medicine 08/20/21 Selvin Robin MD 1 [facility] [address] [place] [address] Vascular Surgery 07/09/16 Davin Moran MD [address] [place] [address] [place] [address] Cardiology 08/11/17 Landen Clement MD [address] [place] [address], [address] [place] [address] Endocrinology 10/15/21 Dylan Martinez MD [address] [place] [address] Wound Care 07/16/23 Undercar Specialist Relationship Specialty Start Date End Date Paulina Severino MD [address] [facility] [address] [address] [place], [place] 17[address]01 PCP - General Family Medicine 08/20/21 Selvin Robin MD [address] [facility] [address] [place] [phone] Vascular Surgery 07/09/16 Davin Moran MD [address] [place] [address] [address] [place] [address] Cardiology 08/11/17 Landen Clement MD [address] [place] [address], [facility] [address] [place] [address] Endocrinology 10/15/21 Dylan Martinez MD [address] [place] [address] Wound Care 07/16/23 Undercar Specialist Relationship Specialty Start Date End Date Paulina Sveerino MD [address] [facility] [address] [place], [place] 7[address]761 PCP - General Family Medicine 08/20/21 Selvin Robin MD [address] [facility] [address] [place] [phone] Vascular Surgery 07/09/16 Davin Moran MD [address] [place] [address] [place] [address] Cardiology 08/11/17 Landen Clement MD [address] [place] [address], [address] [place] [address] Endocrinology 10/15/21 Dylan Martinez MD [address] [place] [address] [place], [place] [phone] Wound Care 07/16/23 Undercar Specialist Relationship Specialty Start Date End Date Paulina Severino MD [address] [facility] [address] PCP - General Family Medicine 08/20/21 Selvin Robin MD [address] [facility] [address] [place] [phone] Vascular Surgery 07/09/16 Davin Moran MD [address] [place] [address] [place] [address] (Fax) Cardiology 08/11/17 Landen Clement MD [address] [place] [address], [address] [place] [address] Endocrinology 10/15/21 Dylan Martinez MD [address] [place] [address] [place], [place] [phone] Wound Care 07/16/23 Undercar Specialist Relationship Specialty Start Date End Date Paulina Severino MD [address] [facility] [address] PCP - General Family Medicine 08/20/[address] [facility] [address] [place] [address] Vascular Surgery 07/09/16 Davin Moran MD [address] [place] [address] [place] [address] Cardiology 08/11/17 Landen Clement MD [address] [place] [address], [facility] [address] [place], [place] [phone] Endocrinology 10/15/21 Dylan Martinez MD 1 [place] [address] Wound Care 07/16/23 Undercar Specialist Relationship Specialty Start Date End Date Paulina Severino MD [address] [facility] [address] PCP - General Family Medicine 08/20/[address] [facility] [address] [place] [phone] Vascular Surgery 07/09/16 Davin Moran MD [address] [place] [address] [place] [address] Cardiology 08/11/17 Landen Clement MD [address] [place] [address], [facility] [address] [place], [place] [phone] Endocrinology 10/15/21 Dylan Martinez MD [address] [place] [address] Wound Care 07/16/23 Undercar Specialist Relationship Specialty Start Date End Date Paulina Severino MD [address] [facility] [address] PCP - General Family Medicine 08/20/21 Selvin Robin MD [address] [facility] [address] [place] [address] Vascular Surgery 07/09/16 Davin Moran MD [address] [place] [address] [place] [address] Cardiology 08/11/17 Landen Clement MD [address] [place] [address], [address] [place] [address] Endocrinology 10/15/21 Dylan Martinez MD [address] [place] [address] Wound Care 07/16/23 Undercar Specialist Relationship Specialty Start Date End Date Paulina Severino MD [address] [facility] [address] PCP - General Family Medicine 08/20/21 Selvin Robin MD [address] [facility] [address] [place] [address] Vascular Surgery 07/09/16 Davin Moran MD [address] [place] [address] [place] [address] Cardiology 08/11/17 aLnden Clement MD [address] [place] [address], [address] [address] Endocrinology 10/15/21 Dylan Martinez MD [address] [place] [address] Wound Care 07/16/23 Undercar Specialist Relationship Specialty Start Date End Date Paulina Severino MD [address] [facility] [place], [place] [phone] PCP - General Family Medicine 08/20/21 Selvin Robin MD [address] [facility] [address] [place] [phone] Vascular Surgery 07/09/16 Davin Moran MD [address] [place] [address] [address] [place] [address] Cardiology 08/11/17 Landen Clement MD [address] [place] [address], [address] [address] Endocrinology 10/15/21 Dylan Martinez MD 1 [place] [address] Wound Care 07/16/23 Lyubov Hernandez APRN.PARK ACTIVITIES COORDINATOR [address] [facility] [address] [place], [place] [id number] Quality Control Tech Internal Medicine 08/27/24 Undercar Specialist Relationship Specialty Start Date End Date Paulina Severino MD [address] [facility] [address] PCP - General Family Medicine 08/20/21 Selvin Robin MD [address] [facility] [address] [place] [address] Vascular Surgery 07/09/16 Davin Moran MD [address] [place] [address] [place] [address] Cardiology 08/11/17 Landen Clement MD [address] [place] [address], [address] [place], [place] [phone] Endocrinology 10/15/21 Dylan Martinez MD 1 [place] [address] Wound Care 07/16/23 Lyubov Hernandez APRN.PARK ACTIVITIES COORDINATOR [address] [facility] [address] Quality Control Tech Internal Medicine 08/27/24 Undercar Specialist Relationship Specialty Start Date End Date Paulina Severino MD [address] [facility] [address] PCP - General Family Medicine 08/20/[address] [facility] [address] [place] [phone] Vascular Surgery 07/09/16 Davin Moran MD [address] [place] [address] [place] [address] Cardiology 08/11/17 Landen Clement MD [address] [place] [address], [facility] [address] [place] [address] Endocrinology 10/15/21 Dylan Martinez MD 1 [place] [address] Wound Care 07/16/23 Lyubov Hernandez APRN.PARK ACTIVITIES COORDINATOR [address] [facility] [address] Quality Control Tech Internal Medicine 08/27/24 Undercar Specialist Relationship Specialty Start Date End Date Paulina Severino MD [address] [facility] [address] [place], [place] 034371 PCP - General Family Medicine 08/20/21 [address] [facility] [address] [place] [phone] Vascular Surgery 07/09/16 Davin Moran MD [address] [place] [address] [address] [place] [address] Cardiology 08/11/17 Landen Clement MD [address] [place] [address], [facility] [address] [place] [address] Endocrinology 10/15/21 Dylan Martinez MD 1 [place], [place] [phone] Wound Care 07/16/23 Lyubov Hernandez APRN.PARK ACTIVITIES COORDINATOR [address] [facility] [address] [place], [place] [id number] Quality Control Tech Internal Medicine 08/27/24 Undercar Specialist Relationship Specialty Start Date End Date Paulina Severino MD [address] [facility] [address] [place], [place] [id number] PCP - General Family Medicine 08/20/21 [address] MD [address] [facility] [address] [place] [phone] Vascular Surgery 07/09/16 Davin Moran MD [address] [place] [address] [address] [place], [place] [phone] Cardiology 08/11/17 Landen Clement MD [address] [place] [address], [address] [place], [place] [phone] Endocrinology 10/15/21 Dylan Martinez MD 1 [place], [place] [phone] Wound Care 07/16/23 Lyubov Hernandez APRN.PARK ACTIVITIES COORDINATOR [address] [facility] [address] [place], [place] 158541 Quality Control Tech Internal Medicine 08/27/24 Lizzie Ramirez, SACHI [address] [place] [address] Primary Care Channeling Machine Operator 10/09/24 Undercar Specialist Relationship Specialty Start Date End Date Paulina Severino MD [address] [facility] [address] [place], [place] [id number] PCP - General Family Medicine 08/20/21 [address] [facility] [address] [place] [phone] Vascular Surgery 07/09/16 Davin Moran MD [address] [place] [address] [place] [address] (Fax) Cardiology 08/11/17 Landen Clement MD [address] [place] [address], [facility] [address] [place] [address] Endocrinology 10/15/21 Dylan [place] MD 1 [place] [address] Wound Care 07/16/23 Lyubov Hernandez APRN.PARK ACTIVITIES COORDINATOR [address] [facility] [address] Quality Control Tech Internal Medicine 08/27/24 Loren Wolfe, private watchman Channeling Machine Operator 11/05/24 11/17/24 Undercar Specialist Relationship Specialty Start Date End Date Paulina Severino MD [address] [facility] [address] PCP - General Family Medicine 08/20/21 [address] MD [address] [facility] [address] [place] [address] Vascular Surgery 07/09/16 Davin Moran MD [address] [facility] [address] [place] [address] Cardiology 08/11/17 Landen Clement MD [address] [place] [address], [address] [place] [address] Endocrinology 10/15/21 Dylan [place] MD 1 [place] [address] Wound Care 07/16/23 Lyubov Hernandez APRN.PARK ACTIVITIES COORDINATOR [address] [facility] [address] Quality Control Tech Internal Medicine 08/27/24 Loren Wolfe RN Primary Care Channeling Machine Operator 11/05/24 11/17/24 Undercar Specialist Relationship Specialty Start Date End Date Paulina Severino MD [address] [facility] [address] [place], [place] 85[address]21 PCP - General Family Medicine 08/20/21 [address] MD [address] [facility] [address] [place] [phone] Vascular Surgery 07/09/16 Davin Moran MD [address] [place] [address]. [place] [address] [place], [place] [phone] Cardiology 08/11/17 Landen Clement MD [address] [place] [address], [address] [place], [place] [phone] Endocrinology 10/15/21 Dylan Martinez MD 1 [place] [address] Wound Care 07/16/23 Lyubov Hernandez APRN.PARK ACTIVITIES COORDINATOR [address] [facility] [address] Quality Control Tech Internal Medicine 08/27/24 Loren Wolfe RN Primary Care Channeling Machine Operator 11/05/24 11/17/24 Undercar Specialist Relationship Specialty Start Date End Date Paulina Severino MD [address] [facility] [address] [place], [place] [phone] PCP - General Family Medicine 08/20/21 Sel[address] MD [address] [facility] [address] [place] [phone] Vascular Surgery 07/09/16 Davin Moran MD [address] [place] [address] [address] [address] [place], [place] [phone] Cardiology 08/11/17 Landen Clement MD [address] [place] [address], [address] [place], [place] [phone] Endocrinology 10/15/21 Dylan Martinez MD 1 [place], [place] [phone] Wound Care 07/16/23 Lyubov Hernandez APRN.PARK ACTIVITIES COORDINATOR [address] [facility] [address] [place], [place] [address] Quality Control Tech Internal Medicine 08/27/24 Loren Wolfe, private watchman Channeling Machine Operator 11/05/24 11/17/24 Undercar Specialist Relationship Specialty Start Date End Date Paulina Severino MD [address] [facility] [address] [place] [id number] PCP - General Family Medicine 08/20/21 Selvin [address] [facility] [address] [place] [phone] Vascular Surgery 07/09/16 Davin Moran MD [address] [place] [address] [place] [address] Cardiology 08/11/17 Landen Clement MD [address] [place] [address], [address] [address] Endocrinology 10/15/21 Dylan Martinez MD 1 [place] [address] Wound Care 07/16/23 Lyubov Hernandez APRN.PARK ACTIVITIES COORDINATOR [address] [facility] [place] [address] Quality Control Tech Internal Medicine 08/27/24 Undercar Specialist Relationship Specialty Start Date End Date Paulina Severino MD [address] [facility] [place] [address] PCP - General Family Medicine 08/20/21 Selvin [address] [facility] [address] [place] [phone] Vascular Surgery 07/09/16 Davin Moran MD [address] [facility] [address] [place] [address] Cardiology 08/11/17 Landen Clement MD [address] [place] [address], [address] [address] Endocrinology 10/15/21 Dylan Martinez MD 1 [facility] [place], [place] [phone] Wound Care 07/16/23 Lyubov Hernandez, INEZ.PARK ACTIVITIES COORDINATOR [address] [facility] [place] [address] Quality Control Tech Internal Medicine 08/27/24 Undercar Specialist Relationship Specialty Start Date End Date Paulina Severino MD [address] [facility] [address] [place], [place] [address] PCP - General Family Medicine 08/20/21 Selvin Robin MD 1 [facility] [address] [place] [phone] Vascular Surgery 07/09/16 Davin Moran MD [address] [place] [address] [address] [place], [place] [phone] Cardiology 08/11/17 Landen Clement MD [address] [place] [address], [address] [place] [address] Endocrinology 10/15/21 Dylan Martinez MD 1 [place] [address] Wound Care 07/16/23 Lyubov Hernandez, HEALTH INFORMATION ASSISTANT.PARK ACTIVITIES COORDINATOR [address] [facility] [place] [address] Quality Control Tech Internal Medicine 08/27/24 Undercar Specialist Relationship Specialty Start Date End Date Paulina Severino MD [address] [facility] [address] [place], [place] [address] PCP - General Family Medicine 08/20/21 Selvin Robin MD 1 [facility] [address] [place] [phone] Vascular Surgery 07/09/16 Davin Moran MD [address] [place] [address] [place] [address] Cardiology 08/11/17 Landen Clement MD [address] [place] [address], [address] [phone] Endocrinology 10/15/21 Dylan Martinez MD 1 [facility] [place], [place] [phone] Wound Care 07/16/23 Lyubov Hernandez APRN.PARK ACTIVITIES COORDINATOR [address] [facility] [address] [address] Quality Control Tech Internal Medicine 08/27/24 Undercar Specialist Relationship Specialty Start Date End Date Paulina Severino MD [address] [facility] [place] [address] PCP - General Family Medicine 08/20/21 [address] [facility] [address] [place] [phone] Vascular Surgery 07/09/16 Davin Moran MD [address] [place] [address] [place] [address] Cardiology 08/11/17 Landen Clement MD [address] [place] [address], [facility] [address] [place] [address] Endocrinology 10/15/21 Dylan Martinez MD 1 [place] [address] Wound Care 07/16/23 Lyubov Hernandez APRN.PARK ACTIVITIES COORDINATOR [address] [facility] [place] [address] Quality Control Tech Internal Medicine 08/27/24 Undercar Specialist Relationship Specialty Start Date End Date Paulina Severino MD [address] [facility] [address] [place], [place] [address]81 PCP - General Family Medicine 08/20/21 [address] [facility] [address] [place] [phone] Vascular Surgery 07/09/16 Davin Moran MD [address] [place] [address] [address] [place], [place] [phone] Cardiology 08/11/17 Landen Clement MD [address] [place] [address], [address] [place] [address] Endocrinology 10/15/21 Dylan Martinez MD 1 [place] [address] Wound Care 07/16/23 Lyubov Hernandez APRN.PARK ACTIVITIES COORDINATOR [address] [facility] [address] [place], [place] 88[address] Quality Control Tech Internal Medicine 08/27/24 Undercar Specialist Relationship Specialty Start Date End Date Paulina Severino MD [address] [facility] [address] [place], [place] [address] PCP - General Family Medicine 08/20/21 Selvin Robin MD [address] [facility] [address] [place] [address] Vascular Surgery 07/09/16 Davin Moran MD [address] [place] [address] [place] [address] (Fax) Cardiology 08/11/17 Landen Clement MD [address] [place] [address], [address] [place], [place] [phone] Endocrinology 10/15/21 Dylan Martinez MD 1 [place] [address] Wound Care 07/16/23 Lyubov Hernandez APRN.PARK ACTIVITIES COORDINATOR [address] [facility] [address] [address] Quality Control Tech Internal Medicine 08/27/24 Undercar Specialist Relationship Specialty Start Date End Date Paulina Severino MD [address] [facility] [address] [address] PCP - General Family Medicine 08/20/21 Selvin Robin MD 1 [facility] [address] [place] [address] Vascular Surgery 07/09/16 Davin Moran MD [address] [place] [address] [place] [address] Cardiology 08/11/17 Landen Clement MD [address] [place] [address], [facility] [address] [place], [place] [phone] Endocrinology 10/15/21 Dylan Martinez MD 1 [place], [place] [phone] Wound Care 07/16/23 Lyubov Hernandez APRN.PARK ACTIVITIES COORDINATOR [address] [facility] [address] [place], [place] [address] Quality Control Tech Internal Medicine 08/27/24 Angela Cuadra MD Quality Control Tech 02/26/25 03/12/25 Undercar Specialist Relationship Specialty Start Date End Date Paulina Severino MD [address] [facility] [address] [place], [place] [id number] PCP - General Family Medicine 08/20/21 [address] [facility] [address] [place] [phone] Vascular Surgery 07/09/16 Davin Moran MD [address] [place] [address] [address] [place], [place] [phone] Cardiology 08/11/17 Landen Clement MD [address] [place] [address], [address] [place] [address] Endocrinology 10/15/21 Dylan Martinez MD 1 [place], [place] [phone] Wound Care 07/16/23 Lyubov Hernandez APRN.PARK ACTIVITIES COORDINATOR [address] [facility] [place] [address] Quality Control Tech Internal Medicine 08/27/24 Angela Cuadra MD Quality Control Tech 02/26/25 03/12/25 Undercar Specialist Relationship Specialty Start Date End Date Paulina Severino MD [address] [facility] [address] [place], [place] [phone] PCP - General Family Medicine 08/20/21 [address] [facility] [address] [place] [phone] Vascular Surgery 07/09/16 Davin Moran MD [address] [place] [address] [address] [place], [place] [phone] Cardiology 08/11/17 Landen Clement MD [address] [place] [address], [address] [place], [place] [phone] Endocrinology 10/15/21 Dylan Martinez MD 1 [place], [place] [phone] Wound Care 07/16/23 Lyubov Hernandez APRN.PARK ACTIVITIES COORDINATOR [address] [facility] [address] [place], [place] [address]31 Quality Control Tech Internal Medicine 08/27/24 Angela Cuadra MD Quality Control Tech 02/26/25 03/12/25 Undercar Specialist Relationship Specialty Start Date End Date Paulina Severino MD [address] [facility] [address] [place], [place] [phone] PCP - General Family Medicine 08/20/21 Sel[address] MD [address] [facility] [address] [place] [phone] Vascular Surgery 07/09/16 Davin Moran MD [address] [facility] [address] [place] [address] (Fax) Cardiology 08/11/17 Landen Clement MD [address] [place] [address], [address] [address] Endocrinology 10/15/21 Dylan Martinez MD 1 [place] [address] Wound Care 07/16/23 Lyubov Hernandez APRN.PARK ACTIVITIES COORDINATOR [address] [facility] [address] [address] Quality Control Tech Internal Medicine 08/27/24 Angela Cuadra MD Quality Control Tech 02/26/25 03/12/25 Undercar Specialist Relationship Specialty Start Date End Date Paulina Severino MD [address] [facility] [address] [address] PCP - General Family Medicine 08/20/21 [address] [facility] [address] [place] [phone] Vascular Surgery 07/09/16 Davin Moran MD [address] [facility] [address] [place] [address] Cardiology 08/11/17 Landen Clement MD [address] [place] [address], [address] [address] Endocrinology 10/15/21 Dylan Martinez MD 1 [place] [address] Wound Care 07/16/23 Lyubov Hernandez APRN.PARK ACTIVITIES COORDINATOR [address] [facility] [address] [place], [place] 4[address]21 Quality Control Tech Internal Medicine 08/27/24 Angela Cuadra MD Quality Control Tech 02/26/25 03/12/25 Undercar Specialist Relationship Specialty Start Date End Date Paulina Severino MD [address] [facility] [address] [place], [place] 3[address] PCP - General Family Medicine 08/20/21 [address] [facility] [address] [place] [phone] Vascular Surgery 07/09/16 Davin Moran MD [address] [place] [address] [address] [place], [place] [phone] Cardiology 08/11/17 Landen Clement MD [address] [place] [address], [address] [place] [address] Endocrinology 10/15/21 Dylan Martinez MD 1 [place], [place] [phone] Wound Care 07/16/23 Lyubov Hernandez APRN.PARK ACTIVITIES COORDINATOR [address] [facility] [address] [place], [place] [phone] Quality Control Tech Internal Medicine 08/27/24 Undercar Specialist Relationship Specialty Start Date End Date Paulina Severino MD [address] [facility] [place], [place] [phone] PCP - General Family Medicine 08/20/21 Selvin Robin MD [address] [facility] [address] [place] [phone] Vascular Surgery 07/09/16 Davin Moran MD [address] [place] [address] [place] [address] (Fax) Cardiology 08/11/17 Landen Clement MD [address] [place] [address], [facility] [address] [place], [place] [phone] Endocrinology 10/15/21 Dylan Martinez MD 1 [place] [address] Wound Care 07/16/23 Lyubov Hernandez APRN.PARK ACTIVITIES COORDINATOR [address] [facility] [address] Quality Control Tech Internal Medicine 08/27/24 Undercar Specialist Relationship Specialty Start Date End Date Paulina Severino MD [address] [facility] [address] [address] PCP - General Family Medicine 08/20/21 Selvin Robin MD [address] [facility] [address] [facility] [address] [place] [address] Vascular Surgery 07/09/16 Davin Moran MD [address] [place] [address] [place] [address] Cardiology 08/11/17 Landen Clement MD [address] [place] [address], [address] [phone] Endocrinology 10/15/21 Dylan Martinez MD 1 [place], [place] [phone] Wound Care 07/16/23 Lyubov Hernandez APRN.PARK ACTIVITIES COORDINATOR [address] [facility] [place] [address] Quality Control Tech Internal Medicine 08/27/24 Undercar Specialist Relationship Specialty Start Date End Date Paulina Severino MD [address] [facility] [address] [place], [place] 95[address]71 PCP - General Family Medicine 08/20/21 [address] [facility] [address] [place] [phone] Vascular Surgery 07/09/16 Davin Moran MD [address] [place] [address] [address] [place], [place] [phone] Cardiology 08/11/17 Landen Clement MD [address] [place] [address], [address] [place] [address] Endocrinology 10/15/21 Dylan Martinez MD 1 [place] [address] Wound Care 07/16/23 Lyubov Hernandez APRN.PARK ACTIVITIES COORDINATOR [address] [facility] [place] [address] Quality Control Tech Internal Medicine 08/27/24 Undercar Specialist Relationship Specialty Start Date End Date Paulina Severino MD [address] [facility] [address] [address] PCP - General Family Medicine 08/20/21 Selvin Robin MD [address] [facility] [address] [place] [address] Vascular Surgery 07/09/16 Davin Moran MD [address] [place] [address] [place] [address] Cardiology 08/11/17 Landen Clement MD [address] [place] [address], [address] [place], [place] [phone] Endocrinology 10/15/21 Dylan Martinez MD 1 [place] [address] Wound Care 07/16/23 Lyubov Hernandez APRN.PARK ACTIVITIES COORDINATOR [address] [facility] [place] [address] Quality Control Tech Internal Medicine 08/27/24 Undercar Specialist Relationship Specialty Start Date End Date Paulina Severino MD [address] [facility] [place] [address] PCP - General Family Medicine 08/20/21 Selvin Robin MD 1 [facility] [address] [place] [phone] Vascular Surgery 07/09/16 Davin Moran MD [address] [place] [address] [place] [address] Cardiology 08/11/17 Landen Clement MD [address] [place] [address], [facility] [address] [place] [address] Endocrinology 10/15/21 Dylan Martinez MD [address] [place] [address] Wound Care 07/16/23 Lyubov Hernandez, INEZ.PARK ACTIVITIES COORDINATOR [address] [facility] [place] [address] Quality Control Tech Internal Medicine 08/27/24 Undercar Specialist Relationship Specialty Start Date End Date Paulina Severino MD [address] [facility] [place], [place] [phone] PCP - General Family Medicine 08/20/21 [address] [facility] [address] [place] [phone] Vascular Surgery 07/09/16 Davin Moran MD [address] [place] [address] [address] [place] [address] Cardiology 08/11/17 Landen Clement MD [address] [place] [address], [facility] [address] [place] [address] Endocrinology 10/15/21 Dylan Martinez MD 1 [place], [place] [phone] Wound Care 07/16/23 Lyubov Hernandez, INEZ.PARK ACTIVITIES COORDINATOR [address] [facility] [address] [place], [place] [phone] Quality Control Tech Internal Medicine 08/27/24 Undercar Specialist Relationship Specialty Start Date End Date Paulina Severino MD [address] [facility] [place], [place] [id number] PCP - General Family Medicine 08/20/21 Selvin Robin MD [facility] [address] [place] [phone] Vascular Surgery 07/09/16 Davin Moran MD [address] [place] [address] [place], [place] [phone] Cardiology 08/11/17 Landen Clement MD [address] [place] [address], [address] [place], [place] [phone] Endocrinology 10/15/21 Dylan Martinez MD 1 [place], [place] [phone] Wound Care 07/16/23 Lyubov Hernandez APRN.PARK ACTIVITIES COORDINATOR [address] [facility] [place] [address] Quality Control Tech Internal Medicine 08/27/24 Undercar Specialist Relationship Specialty Start Date End Date Paulina Severino MD [address] [facility] [place] [address] PCP - General Family Medicine 08/20/21 Selvin Robin MD [address] [facility] [facility] [address] [place] [address] Vascular Surgery 07/09/16 Davin Moran MD [address] [place] [address] [place] [address] Cardiology 08/11/17 Landen Clement MD [address] [place] [address], [address] [address] Endocrinology 10/15/21 Dylan Martinez MD 1 [facility] [place] [address] Wound Care 07/16/23 Lyubov Hernandez APRN.PARK ACTIVITIES COORDINATOR [address] [facility] [address] [place], [place] [phone] Quality Control Tech Internal Medicine 08/27/24 Undercar Specialist Relationship Specialty Start Date End Date Paulina Severino MD [address] [facility] [place] [address] PCP - General Family Medicine 08/20/21 [address] [facility] [address] [place] [phone] Vascular Surgery 07/09/16 Davin Moran MD [address] [facility] [address] [place] [address] Cardiology 08/11/17 Landen Clement MD [address] [place] [address], [facility] [address] [place] [address] Endocrinology 10/15/21 Dylan Martinez MD [address] [place] [address] Wound Care 07/16/23 Lyubov Hernandez APRN.PARK ACTIVITIES COORDINATOR [address] [facility] [address] Quality Control Tech Internal Medicine 08/27/24 PRN Active and Recently Administ ered Medications (unrecognized section and content) Medication Order 03/04/2022 03/05/2022 03/06/2022 lidocaine (PF) 10 mg/mL (1 %) injection (XYLOCAINE) (COMPLETED) SUBCUTANEOUS, NEEDED, Starting on Wed03/06/22 at 1455, Until Wed03/06/22 at 1455 1455 (Given - Provid er: Adali Pichardo MD, MD - Comment: lumbar spine) methylPREDNISolone acetate injection (DEPO-Medrol) (COMPLETED) INTRA-ARTICULAR, NEEDED, Starting on Wed03/06/22 at 1457, Until Wed03/06/22 at 1457 1457 (Given - Provid er: Adali [place]ichardo MD, MD) FOR RECORDS PERTAINING TO PATIENTS WHO ARE OR HAVE BEEN ENROLLED IN A CHEMICAL DEPENDENCY/SUBSTANCEABUSE PROGRAM, SOME INFORMATION MAY BE OMITTED. This clinical summary was aggregated from multiple sources. Caution should be exercised in using it in the provision of clinical care. This summary normalizes information from multiple sources, and as a consequence, information in this document may materially change the coding, format and clinical context of patient data. In addition, data may be omitted in some cases. CLINICAL DECISIONS SHOULD BE BASED ON THE PRIMARY CLINICAL RECORDS. [facility]. provides no warranty or guarantee of the accuracy or completeness of information in this document.
[2025-06-03 03:11] LABS: Troponin T High Sensitivity 119 ng/L (<=22)
[2025-06-03 03:15] LABS: Color, Urine Yellow (Yellow); Glucose, Dipstick Normal (Normal); Ketone-Dipstick Negative (Negative); Leukocyte Esterase-Dipstick 500 /ul (Negative); Nitrite-Dipstick Negative (Negative); Occult Blood-Urine 10 /ul (Negative); Protein-Dipstick 30 mg/dl (Negative); Specific Gravity, Urine 1.020 (1.002-1.030); Urine Bilirubin Dipstick Negative (Negative)
[2025-06-03 03:23] LABS: Red Blood Cells-Urine 0 SEEN /hpf (0-5); Squamous Epithelial Cells - UA 0 SEEN /hpf (0-5)
[2025-06-03 03:24] LABS: Mucous, Urine 0 SEEN /hpf (<or=2+)
[2025-06-03] MEDS: Nitroglycerin SL (ED/IMG/CATH) 0.4 MG TABLET SL (04:17)
[2025-06-03 04:38] LABS: Troponin T High Sens 2 HR 113 ng/L (<=22)
[2025-06-03 06:17] LABS: Reflex Lactate? Y
--- NOTE | 2025-06-03 07:10 | PCM.HP.STD ---
[facility] - General General Date of Admission: 06/03/25 Date of Service: 06/03/25 Chief Complaint: Fever/Chills HPI Narrative ANTOLIN HATHAWAY, is a 74 M who presented to the emergency department at [facility] on 06/03/2025 due to fever and chills. Patient had a stump revision of his right lower extremity. 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 He recently had a vision of his right stump at [facility] and it sounds like he had a complicated postop hospital course involving an ICU stay and intubation with pneumonia. He developed a sacral pressure ulcer and from his history of sounds that he may have gone to an LTAC temporarily and then ended up at [facility]. He lives in [place] and intends to get back to independent living as soon as possible. He stated that at the facility at which she has been staying they were concerned that his ulcer was getting infected and had him on antibiotics. He was developing fevers and increased drainage from the wound. On further questioning he was having intermittent chest discomfort that he stated was more like indigestion. He stated he took Tums and that helped but they also gave him nitroglycerin he thought that helped the most. He does have known coronary disease and stated that he follows with Dr. Moran at [facility] at baseline. It sounds as if he had a cardiac catheterization with stent placement earlier this year in the spring but he cannot remember the exact date. We have requested records but they are pending at this time. He was found to be hypoxic and short of breath in the emergency department eventually this was chalked up to a pneumonia however troponin were elevated and his BNP was high. I suspect that his infection is related to his wound and his chest discomfort may be related to unstable angina. Vital signs on presentation showed a temperature of 98.8, heart rate 103, respiratory rate 20, blood pressure was 134/52 and patient was 94% on 4 L nasal cannula. He is not oxygen dependent at baseline. CBC shows a mild leukocytosis with a white count of 12.8 and a left shift with an 82.5% neutrophilia. Hemoglobin is 7.8 and seems to be stable compared to previous. Coags are overtly unremarkable. Chemistry panel shows normal electrolytes with a BUN of 24 and a serum creatinine of 1.18 consistent with mild dehydration. Blood glucose was 208, lactic acid was initially 2.3 with a repeat of 1.4 after hydration. Liver function was unremarkable. His initial troponin was 119 with a delta of 113. I obtained a BNP and was found to be 4210. UA is not consistent with infection. Initial EKG showed no significant ST-T wave changes concerning for acute ischemia. With his chronic wound CT of the lumbar spine was performed and showed decubitus ulcer overlying the right posterior sacroiliac joint identifying mild adjacent inflammation with no abscess and no definitive joint or bone involvement, extensive vascular disease and degenerative changes in the lower lumbar spine. CT of the chest was performed given his hypoxia and shortness of breath. CT showed emphysematous changes with small bilateral pleural effusions and patchy bilateral airspace disease and no PE. Cultures were obtained and he was started on broad-spectrum antibiotics in the emergency department. 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 PVD (peripheral vascular disease) Diabetes Home Medications ?Medication ?Instructions ?Recorded ?Last Taken ?Type acetaminophen 325 mg capsule 650 mg PO Q4H PRN fever or pain 06/03/25 Unknown History acetaminophen 500 mg capsule 1,000 mg PO Q6H PRN fever or pain 06/03/25 Unknown History acetaminophen 650 mg rectal 650 mg NM Q4H PRN fever or pain 06/03/25 Unknown History suppository aluminum-mag hydroxide-simethicone 30 ml PO Q4H PRN indigestion 06/03/25 Unknown History 200 mg-200 mg-20 mg/5 mL oral susp (Antacid Plus Anti-Gas) amlodipine 10 mg tablet 10 mg PO DAILY 06/03/25 Unknown History ascorbic acid (vitamin C) 500 mg 500 mg PO DAILY 06/03/25 Unknown History capsule aspirin 81 mg tablet 81 mg PO DAILY 06/03/25 Unknown History bisacodyl 10 mg rectal suppository 10 mg NM DAILY PRN constipation 06/03/25 Unknown History buspirone 5 mg tablet 5 mg PO BID 06/03/25 Unknown History calcium carbonate (Antacid Ultra 430 mg PO TID PRN dyspepsia 06/03/25 Unknown History Strength) carvedilol 6.25 mg tablet 6.25 mg PO BID 06/03/25 Unknown History cetirizine 10 mg tablet 10 mg PO DAILY 06/03/25 Unknown History clopidogrel 75 mg tablet 75 mg PO DAILY 06/03/25 Unknown History dextrose 40 % oral gel (Glucose 20 g PO Q15M PRN hypoglycemia 06/03/25 Unknown History Gel) escitalopram oxalate 10 mg tablet 10 mg PO DAILY 06/03/25 Unknown History furosemide 40 mg tablet (Lasix) 40 mg PO DAILY 06/03/25 Unknown History gabapentin 300 mg capsule 300 mg PO QHS 06/03/25 Unknown History glucagon 1 mg injection kit 1 mg IM .q15min PRN hypoglycemia 06/03/25 Unknown History guaifenesin 100 mg/5 mL oral 200 mg PO Q4H PRN cough 06/03/25 Unknown History liquid (Cough Syrup) hydralazine 25 mg tablet 75 mg PO TID 06/03/25 Unknown History insulin glargine 100 unit/mL (3 20 unit subcut QPM 06/03/25 Unknown History mL) subcutaneous pen (Lantus Solostar U-100 Insulin) insulin lispro 100 unit/mL 14 unit subcut ACHS 06/03/25 Unknown History subcutaneous pen (Humalog KwikPen (U-100) Insulin) insulin lispro 100 unit/mL See Protocol subcut TID 06/03/25 Unknown History subcutaneous pen (Humalog KwikPen (U-100) Insulin) isosorbide dinitrate 40 mg tablet 40 mg PO TID 06/03/25 Unknown History magnesium hydroxide 400 mg/5 mL 30 ml PO DAILY PRN constipation 06/03/25 Unknown History oral suspension (Milk of Magnesia) methocarbamol 500 mg tablet 500 mg PO QHS 06/03/25 Unknown History multivit,tx with iron 27 1 tab PO DAILY 06/03/25 Unknown History ds-ejmzmfz-gcyhj acid 0.4 mg-minerals tablet (Thera-M) pantoprazole 40 mg tablet,delayed 40 mg PO DAILY 06/03/25 Unknown History release (Protonix) rivaroxaban 2.5 mg tablet 2.5 mg PO BID 06/03/25 Unknown History sennosides 8.6 mg tablet (senna) 8.6 mg PO BID 06/03/25 Unknown History sodium chloride 0.65 % nasal spray 1 spray intranasal BID 06/03/25 Unknown History aerosol (Nasal [place] (sodium chloride)) tamsulosin 0.4 mg capsule 0.4 mg PO QHS 06/03/25 Unknown History tramadol 50 mg tablet 50 mg PO BID 06/03/25 Unknown History Allergy/AdvReac Type Severity Reaction Status Date / Time atorvastatin Allergy Unknown unknown Verified 06/03/25 01:50 levofloxacin Allergy Unknown unknown Verified 06/03/25 01:50 metformin AdvReac Diarrhea Verified 06/03/25 01:50 Family History (Updated 06/03/25 @ 15:[address] Silvina Mackey DO) Other CAD (coronary artery disease) COPD (chronic obstructive pulmonary disease) Diabetes Heart disease Hypertension Surgical History H/O heart artery stent S/P AKA (above knee amputation) bilateral Social History (Updated 06/03/25 @ 15:[address] Silvina Mackey DO) housing: other details: Goal is to get back to independent living current occupational status: retired Smoking Status: Former smoker alcohol intake: former substance use type: does not use ROS Constitutional Constitutional: Reports chills, fever(s), malaise and weakness; Denies anorexia, change in weight, fatigue, night sweats or other Eyes Eyes: Denies blurry vision, change in eye color, change in vision, discharge from eye(s), double vision, erythema, eye pain, loss of vision or other ENT HEENT: Denies abnormal hearing, dysphagia, ear pain, epistaxis, headache(s), hearing loss, nasal congestion, nasal discharge, post nasal drip, sinus pressure, sore throat or other Cardiovascular Cardiovascular: Reports chest pain, dyspnea on exertion and other Details: Diaphoresis ; Denies claudication, edema, lightheadedness, orthopnea, palpitations, paroxysmal nocturnal dyspnea, rapid heart rate or syncope Respiratory/Chest Respiratory/Chest: Reports dyspnea, shortness of breath at rest and shortness of breath with exertion; Denies cough, excessive phlegm production, hemoptysis, productive cough, wheezing or other Gastrointestinal Gastrointestinal: Reports dyspepsia; Denies abdominal pain, coffee ground emesis, constipation, diarrhea, hematemesis, hematochezia, loose stools, melena, nausea, vomiting or other Genitourinary Genitourinary: Denies burning urination, difficulty urinating, dysuria, hematuria, nocturia, urinary frequency, urinary hesitancy, urinary incontinence, urinary urgency or other Musculoskeletal Musculoskeletal: Reports back pain Neurologic Neurologic: Reports paresthesias; Denies abnormal gait, abnormal speech, confusion, disequilibrium, dizziness, focal weakness, headache(s), numbness, seizure-like activity, seizures, syncope, tingling, tremor(s) or other Psychiatric Psychiatric: Reports anxiety and depression; Denies homicidal ideation, suicidal ideation or other Endocrine Endocrinology: Denies change in body appearance, cold intolerance, excessive sweating, heat intolerance, polydipsia, polyuria or other Hematologic/Lymphatic Hematologic/Lymphatic: Denies anemia, easy bleeding, easy bruising, lymphadenopathy or other Allergic/Immunologic Allergic/Immunologic: Denies rhinitis, hives, eczemia, asthma or other Vital Signs Vital Signs Vital Signs: 06/03/25 01:42 06/03/25 01:50 06/03/25 02:11 Temperature 98.8 F Temperature Source Oral Pulse Rate 103 H Respiratory Rate 20 H Respiratory Effort Normal Respiratory Pattern Normal Blood Pressure 134/52 H Blood Pressure Mean 79 Pulse Ox 94 97 Oxygen Delivery Method Nasal Cannula Nasal Cannula Oxygen Flow Rate (L/min) 4 4 06/03/25 02:45 06/03/25 03:00 06/03/25 04:00 Temperature 98.9 F 98.1 F 98 F Temperature Source Oral Oral Oral Pulse Rate 95 93 99 Respiratory Rate 16 16 20 H Respiratory Effort Respiratory Pattern Blood Pressure 136/58 H 136/55 H 125/97 H Blood Pressure Mean 84 82 106 Pulse Ox 94 94 94 Oxygen Delivery Method Room Air Room Air Nasal Cannula Oxygen Flow Rate (L/min) 6 06/03/25 04:17 06/03/25 04:47 06/03/25 06:47 Temperature 98.9 F Temperature Source Pulse Rate 101 H 94 79 Respiratory Rate 16 16 Respiratory Effort Respiratory Pattern Blood Pressure 131/70 H 129/60 H 140/59 H Blood Pressure Mean 83 86 Pulse Ox 97 98 Oxygen Delivery Method Nasal Cannula Oxygen Flow Rate (L/min) 6 Weight Weight: 68.3 kg Body Mass Index (BMI) 52.2 Physical Exam Const alert, oriented x3, no apparent distress and well nourished; Negative for average body habitus or healthy appearing Constitutional Narrative: Morbidly obese, white male, lying in bed, currently appears comfortable and nontoxic, nursing at bedside General Appearance: cooperative HEENT normocephalic, head/scalp atraumatic and moist oral mucous membranes HEENT Narrative: Mallampati 3, no thrush Eyes EOMs intact bilaterally; Negative for conjunctivae normal Eyes Narrative: Bilateral conjunctiva pallor, no scleral icterus Neck supple Neck Narrative: Neck is short and thick, trachea is midline Resp normal respiratory effort, no retractions and no use of accessory muscles Resp Narrative: Crackles at the bases bilaterally Auscultation: crackles; Negative for rhonchi or wheezes Cardio regular rate, regular rhythm, S1 normal heart sound, S2 normal heart sound, no murmurs, no rub, no gallops and no clicks GI normal to inspection, nondistended, normoactive bowel sounds, soft to palpation and non-tender GI Narrative: Large protuberant abdomen Extremity Extremity Narrative: Bilateral lower extremity AKA, radial pulses are 2+, no upper extremity edema, no clubbing no cyanosis Skin Skin Narrative: Large unstageable sacral decubitus, right distal stump wounds appear to be healing well without any signs of infection, no surrounding erythema or significant drainage Neuro oriented x3, moves all extremities and no focal motor deficits Speech: speech normal Psych affect normal Psych Narrative: Very pleasant, interacts appropriately Results Lab / Micro Data 06/03/25 11:17 06/03/25 02:07 Labs: Laboratory Results - last 24 hr 06/03/25 02:07: WBC 13.8 H, RBC 2.83 L, Hgb 7.4 L, Hct 23.9 L, MCV 84.5, MCH 26.1 L, MCHC 31.0 L, RDW Std Deviation 48.9 H, RDW Coeff of Abby 15.9 H, Plt Count 379, MPV 9.1, Immature Gran % (Auto) 1.000 H, Neut % (Auto) 82.0 H, Lymph % (Auto) 6.5 L, [place] % (Auto) 8.1, Eos % (Auto) 1.8, Baso % (Auto) 0.6, Absolute Neuts (auto) 11.3 H, Absolute Lymphs (auto) 0.90, Nucleated RBC % 0, Sodium 138, Potassium 4.1, Chloride 101, Carbon Dioxide 23.8, Anion Gap 14, BUN 24 H, Creatinine 1.18, Estim Creat Clear Calc 45.20 L, Est GFR (MDRD) Non-Af 65, BUN/Creatinine Ratio 20.3 H, Glucose 208 H, Lactic Acid 2.3 H*, Calcium 8.8, Total Bilirubin 0.16, AST 14, ALT 7, Alkaline Phosphatase 86, Troponin T High Sens 119 H*, Total Protein 6.5, Albumin 3.1 L, Globulin 3.4, Albumin/Globulin Ratio 0.9 06/03/25 03:02: Urine Color Yellow, Urine Clarity Clear, Urine pH 6.0, Ur Specific [place] 1.020, Urine Protein 30 H, Urine Glucose (UA) Normal, Urine Ketones Negative, Urine Occult Blood 10 H, Urine Nitrite Negative, Urine Bilirubin Negative, Urine Urobilinogen Normal, Ur Leukocyte Esterase 500 H, Urine RBC 0 SEEN, Urine WBC 10-25 SEEN, Ur Squamous Epith Cells 0 SEEN, Urine Bacteria RARE, Urine Mucus 0 SEEN 06/03/25 04:11: Troponin T Hi Sens 2 Hr 113 H* Imaging Radiology Impression Lumbar Spine CT 06/03/25 02:00 IMPRESSION: Degenerative changes lower lumbar spine. Vascular disease. Right sided decubitus ulcer without underlying osteomyelitis. Reading Location: [facility] Chest CTA 06/03/25 02:11 IMPRESSION: Emphysema. Small bilateral pleural effusions. Mild patchy airspace in the lungs, pulmonary edema versus pneumonia. Negative for pulmonary embolus. Reading Location: [facility] Assessment & Plan Assessment/Plan (1) Acute on chronic hypoxic respiratory failure: (2) Lactic acidosis: (3) Sacral pressure ulcer: (4) Elevated troponin: (5) Hyperglycemia: (6) Leukocytosis: (7) Chest pain: (8) Unstable angina: (9) Acute on chronic heart failure: PLAN: Plan Infected sacral pressure ulcer - Cultures obtained - Broad-spectrum antibiotics to include vancomycin and Zosyn - Wound care consultation - Dressings per orders - Check MRSA wound - Will hold Xarelto 2.5 mg p.o. twice daily--> I suspect this is being utilized for DVT prophylaxis as this is not therapeutic dosing - Continue vitamin C - Add zinc - [place] 2 packets twice daily - Consult dietitian to optimize nutrition - Consult plastic surgery initiated however plastic surgery is out of town so general surgery to evaluate-discussed with Dr. Singer Unstable angina - Patient with troponin rise - Intermittent chest pain with EKG changes after he was admitted - Start nitro drip - Start heparin drip - Echocardiogram ordered - Records from [facility] have been requested - Cardiology consultation with plans for cardiac catheterization depending on stability Acute hypoxic respiratory failure secondary to acute on chronic heart failure of unknown type - Baseline EF is unknown however suspect depressed EF with current medication regimen - Lasix 40 mg IV twice daily - Check echocardiogram - Fluid and sodium restrict diet - Daily weights - Continue home hydralazine, isosorbide dinitrate, Coreg - Cardiology consult pending CAD/essential hypertension/hyperlipidemia/severe peripheral vascular disease - Continue home aspirin - continue on Plavix - continue home amlodipine - Continue home isosorbide dinitrate - Continue home hydralazine - continue home beta-kong - patient is not on a statin due to previous intolerance - Records from [facility] have been reviewed quested - Patient follows with cardiology at [facility] with Dr. Flo Moran Previous bilateral AKA - Recent revision on right lower extremity appears to be healing well - Wound care will follow - Continue chronic pain medication DM-2 - Patient had A1c on 05/08/2025 that was 6.6 - Continue home regimen - Blood sugars may be elevated acutely due to acute infection - Accu-Cheks as ordered - SSI GERD - Continue home PPI Chronic constipation - Continue home bowel regimen BPH with obstruction - Continue home Flomax Depression/anxiety - Continue home Lexapro - Continue home BuSpar DVT prophylaxis - Heparin drip for now - Appears that he was on Xarelto 2.5 mg p.o. twice daily at the nursing facility for DVT prophylaxis CODE STATUS -This DNR CCA okay for short-term intubation Charges/Coding Visit Charges Inpatient E&M: 05260 Init Hosp L3
--- OUTSIDE RECORDS SUMMARY | 2025-06-03 07:52 | XMS RPT_ITS | CCD ---
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 Name Role Phone Selvin Robin MD Unavailable Davin Moran MD Unavailable Paulina Severino MD Primary Care Provider Landen Clement MD Unavailable Selvin Robin MD Unavailable Davin Moran MD Unavailable Paulina Severino MD Primary Care Provider Landen Clement MD Unavailable Juan CARROLL, Dylan Unavailable Juan CARROLL, Dylan Unavailable [phone] Marianna Klein MA Unavailable Schuyler RN, Fritz Odonnell Unavailable Schuyler KARIMI, Fritz Odonnell Unavailable Paulina Severino MD Primary Care Provider Mary WILEY.PIANO MECHANIC, Lyubov Unavailable [phone] James KARIMI, Lizzie Unavailable [phone] DARRON VALENTINO Admitting UnavailKENNETH Gutierrez Attending [...] MARY, LYUBOV Attending Unavailable SELF Referring Unavailable LYLYTAK, PAULINA R Primary Care Unavailable SELMA CHAPARRO [...] Primary Care Unavailable DARYA GUAJARDO Admitting Unavailable THIERRY RUSH Consulting Unavailbrandt e THIERRY RUSH Referring [...] Care Unavailable Gudla OLS, Jazmyne Attending Unavailable [facility] Doctor, Out of Primary Care Unavailable Gudla OLS, Jazmyne Attending Unavailable [place] Doctor, Out of Primary Care Unavailable Gudla OLS, Jazmyne Attending Unavailable Gudla OLS, Jazmyne Attending Unavailable [facility] Doctor, Out of Primary Care Unavailable Gudla OLS, Jazmyne Attending Unavailable [facility] Doctor, Out of Primary Care Unavailable Allergies Allergy Classification Reported Allergen(s) Allergy Type Date of Onset Reaction(s) Facility HMG-CoA Reductase Inhibitors (statins) (3 sources) atorvastatin Drug Allergy 7 Myalgia [facility] metFORMIN (3 sources) metFORMIN Drug Allergy 7 Diarrhea [facility] Work Phone: Quinolones (antibiotic) (3 sources) levoFLOXacin Drug Allergy 7 [facility] (20 sources) atorvastatin; Translations: [ATORVASTATIN] Drug Allergy 7 Myalgia [facility] (20 sources) levoFLOXacin; Translations: [LEVOFLOXACIN] Drug Allergy 7 Unknown [facility] (20 sources) metFORMIN; Translations: [METFORMIN] Drug Allergy 7 Diarrhea [facility] Work Phone: (20 sources) rosuvastatin Drug Allergy 6 Other: See Comments [facility] Medications Current Medications Medication Drug Class(es) Dates [...] on above: Take 1 capsule by mo [facility] twice daily for 10 days. clopidogrel [...] daily docusate sodium 50 mg / sennosides, longterm 8.6 mg oral tablet (11 sources) Start: [...] 09/18/2021 12/22/2021 Discontinued take 1 tablet by [facility] once daily gabapentin (NEURONTIN) 600 mg tablet Take 600 mg by mouth four times daily. Pt takes at least one daily but gets drunk feeling if takes more Suspended Comment on above: Take 1 capsule by [facility] three times daily for 90 days. Take 1 capsule by [facility] daily at bedtime for 180 days. Take 1 tablet by [facility] three times daily for 30 days. Take 1 tablet by [facility] three times daily. Take 1 tablet by [facility] three times daily for 90 days. Take 1 tablet by [facility] four times daily for 30 days. Take 1 tablet by [facility] four times daily for 90 days. hydrALAZINE [...] gangrene, with long-term current use of insulin ([facility]) Inject 20 Units subcutaneously daily at bedtime. 15 mL 3 11/04/2024 Active Start: 07-25-2024 inject 28 [IU] by ibrahim bcutaneous injection once daily at bedtime TRESIBA FLEXTOUCH U-100 100 unit/mL (3 mL) injection pen Indications: Type 2 diabetes mellitus with diabetic peripheral angiopathy without gangrene, with long-term current use of insulin ([facility]) Inject 28 Units subcutaneously daily [...] on above: Take 1 capsule by mo [facility] once daily. Take 1 capsule by mo [facility] once daily zinc oxide 0.2 mg/mg [...] on above: Take 1 capsule by mo [facility] three times daily as needed. Blood-Glucose Meter,Continuous ([employer] G7 NEWS ANALYST) misc (20 sources) Start: 4 End: 5 Blood-Glucose Meter,Continuous (DEXCOM G7 NEWS ANALYST) misc Check glucose throughout the day. Patient is on insulin 1 Each 11/19/2023 11/08/2024 Discontinued (Course of therapy completed) Start: 11-19-2023 Blood-Glucose Meter,Continuous (DEXCOM G7 NEWS ANALYST) misc Check glucose throughout the day. Patient is on insulin 1 Each 11/19/2023 Suspended Start: 11-19-2023 Blood-Glucose Meter,Continuous (DEXCOM G7 NEWS ANALYST) misc Check glucose throughout the day. Patient is on insulin 1 Each 11/19/2023 Active Start: 11-19-2023 Blood-Glucose Meter,Continuous (DEXCOM G7 NEWS ANALYST) misc Check glucose throughout the day. Patient [...] Corticosteroid Start: 03-25-2022 End: 03-30-2022 methylPREDNISolone (MEDROL, YOINS,) 4 mg Dose-Pack Follow dosing instructions, take [...] on above: Take 1 capsule by mo [facility] once daily. 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, [address] Calcium [Mass/Vol] 8.4 mg/dL Normal 7.6-11.0 [facility] Comment on above: Order Comment: 104.1 Performed By: #### L 500.2500, L100.0100, L501.6710 #### [facility] [address] [place], [address] Chloride [Moles/Vol] 104 mmol/L Normal 98-108 [facility] Comment on above: Order Comment: 104.1 Performed By: #### L 500.2500, L100.0100, L501.6710 #### [facility] [address] [place], [address] CO2 [Moles/Vol] 24.3 mmol/L Normal 21.0-32.0 [facility] Comment on above: Order Comment: 104.1 Performed By: #### L 500.2500, L100.0100, L501.6710 #### [facility] [address] [place], [address] Creatinine [Mass/Vol] 0.79 mg/dL Normal 0.70-1.20 [facility] Comment on above: Order Comment: 104.1 Performed By: #### L 500.2500, L100.0100, L501.6710 #### [facility] [address] [place], [address] GAP 11 Normal 5-15 [facility] Comment on above: Order Comment: 104.1 Performed By: #### L 500.2500, L100.0100, L501.6710 #### [facility] [address] [place], [address] GFR/1.73 sq M.predicted among non-blacks MDRD (S/P/Bld) [Vol rate/Area] 94 mL/min/{1.73_m2} Normal >60 [facility] Comment on above: Order Comment: 104.1 Result Comment: mL/m in/1.73m2 CKD-EPI Creatinine Equation (2020) Performed By: #### L 500.2500, L100.0100, L501.6710 #### [facility] [address] [place], [address] Glucose [Mass/Vol] 116 mg/dL High 70-99 [facility] Comment on above: Order Comment: 104.1 Performed By: #### L 500.2500, L100.0100, L501.6710 #### [facility] [address] [place], [address] Potassium [Moles/Vol] 3.8 mmol/L Normal 3.3-5.1 [facility] Comment on above: Order Comment: 104.1 Performed By: #### L 500.2500, L100.0100, L501.6710 #### [facility] [address] [place], [address] Sodium [Moles/Vol] 140 mmol/L Normal 133-145 [facility] Comment on above: Order Comment: 104.1 Performed By: #### L 500.2500, L100.0100, L501.6710 #### [facility] [address] [place], [address] Urea nitrogen [Mass/Vol] 14 mg/dL Normal 4-19 [facility] Comment on above: Order Comment: 104.1 Performed By: #### L 500.2500, L100.0100, L501.6710 #### [facility] [address] [place], [address] CBC W/Diff, Automatedon 09-0 9-2024 Absolute Lymph 1.13 X10 3/uL Normal 0.83-4.51 [facility] Comment on above: Order Comment: 104.1 Performed By: #### L 500.2500, L100.0100, L501.6710 #### [facility] [address] [place], [address] Absolute Neut 6.6 X10 3/uL Normal 2.0-7.7 [facility] Comment on above: Order Comment: 104.1 Performed By: #### L 500.2500, L100.0100, L501.6710 #### [facility] [address] [place], [address] Basophils/100 WBC (Bld) 0.8 % Normal 0-1 [facility] Comment on above: Order Comment: 104.1 Performed By: #### L 500.2500, L100.0100, L501.6710 #### [facility] [address] [place], [address] Eosinophils/100 WBC (Bld) 3.5 % Normal 0-5 [facility] Comment on above: Order Comment: 104.1 Performed By: #### L 500.2500, L100.0100, L501.6710 #### [facility] [address] [place], [address] Erythrocyte distribution width (RBC) [Ratio] 15.9 % High 11.6-14.6 [facility] Comment on above: Order Comment: 104.1 Performed By: #### L 500.2500, L100.0100, L501.6710 #### [facility] [address] [place], [address] Hematocrit (Bld) [Volume fraction] 24.6 % Low 40-54 [facility] Comment on above: Order Comment: 104.1 Performed By: #### L 500.2500, L100.0100, L5.6710 #### [facility] [address] [place], [address] Hemoglobin (Bld) [Mass/Vol] 7.5 g/dL Low 13.0-16.5 [facility] Comment on above: Order Comment: 104.1 Performed By: #### L 500.2500, L100.0100, L5.6710 #### [facility] [address] [place], [address] IG% 0.800 Normal 0.0-0.9 [facility] Comment on above: Order Comment: 104.1 Result Comment: IG% - Immature Granulocytes (promyelocytes, myelocytes and metamyelocytes) > 1% indicates that a LEFT SHIFT is Present. Performed By: #### L 500.2500, L100.0100, L501.6710 #### [facility] [address] [place], [address] Lymphocytes/100 WBC (Bld) 12.5 % Low 19-41 [facility] Comment on above: Order Comment: 104.1 Performed By: #### L 500.2500, L100.0100, [id number] #### [facility] [address] [place], [address] MCH (RBC) [Entitic mass] 26.3 pg Low 27.0-32.0 [facility] Comment on above: Order Comment: 104.1 Performed By: #### L 500.2500, L100.0100, L501.6710 #### [facility] [address] [place], [address] MCHC (RBC) [Mass/Vol] 30.5 g/dL Low 32-36 [facility] Comment on above: Order Comment: 104.1 Performed By: #### L 500.2500, L100.0100, L501.6710 #### [facility] [address] [place], [address] MCV (RBC) [Entitic vol] 86.3 fL Normal 80-94 [facility] Comment on above: Order Comment: 104.1 Performed By: #### L 500.2500, L100.0100, L501.6710 #### [facility] [address] [place], [address] Monocytes/100 WBC (Bld) 9.7 % Normal 0-10 [facility] Comment on above: Order Comment: 104.1 Performed By: #### L 500.2500, L100.0100, L501.6710 #### [facility] [address] [place], [address] Neutrophils/100 WBC (Bld) 72.7 % High 47-70 [facility] Comment on above: Order Comment: 104.1 Performed By: #### L 500.2500, L100.0100, L501.6710 #### [facility] [address] [place], [address] Nucleated RBC (Bld) [#/Vol] 0 10*3/uL Normal 0-5 [facility] Comment on above: Order Comment: 104.1 Performed By: #### L 500.2500, L100.0100, L501.6710 #### [facility] [address] [place], [address] Platelet mean volume (Bld) [Entitic vol] 9.1 fL Normal 6.2-12.0 [facility] Comment on above: Order Comment: 104.1 Performed By: #### L 500.2500, L100.0100, L501.6710 #### [facility] [address] [place], [address] Platelets (Bld) [#/Vol] 357 10*3/uL Normal 150-450 [facility] Comment on above: Order Comment: 104.1 Performed By: #### L 500.2500, L100.0100, L501.6710 #### [facility] [address] [place], [address] RBC (Bld) [#/Vol] 2.85 10*6/uL Low 4.6-6.2 [facility] Comment on above: Order Comment: 104.1 Performed By: #### L 500.2500, L100.0100, L501.6710 #### [facility] [address] [place], [address] RDW SD 50.3 fl High 35.1-43.9 [facility] Comment on above: Order Comment: 104.1 Performed By: #### L 500.2500, L100.0100, [id number] #### [facility] [address] [place], [address] WBC (Bld) [#/Vol] 9.1 10*3/uL Normal 4.4-11.0 [facility] Comment on above: Order Comment: 104.1 Performed By: #### L 500.2500, L100.0100, [id number] #### [facility] [address] [place], [address] CRPon 05-29-2025 C-REACTIVE PROT 33.50 mg/L High 0.0-3.0 [facility] Comment on above: Order Comment: 104.1 Performed By: #### L 500.2500, L100.0100, L501.6710 #### [facility] [address] [place], [address] CBC-Complete Blood Cnt No Yazmin mcmahonon 05-24-2025 Erythrocyte distribution width (RBC) [Ratio] 15.4 % High 11.6-14.6 [facility] Comment on above: Order Comment: 104.1 Performed By: #### L 100.0500 #### [facility] [address] [place], [address] Hematocrit (Bld) [Volume fraction] 24.3 % Low 40-54 [facility] Comment on above: Order Comment: 104.1 Performed By: #### L 100.0500 #### [facility] [address] [place], [address] Hemoglobin (Bld) [Mass/Vol] 7.5 g/dL Low 13.0-16.5 [facility] Comment on above: Order Comment: 104.1 Performed By: #### L 100.0500 #### [facility] [address] [place], [address] MCH (RBC) [Entitic mass] 26.4 pg Low 27.0-32.0 [facility] Comment on above: Order Comment: 104.1 Performed By: #### L 100.0500 #### [facility] [address] [place], [address] MCHC (RBC) [Mass/Vol] 30.9 g/dL Low 32-36 [facility] Comment on above: Order Comment: 104.1 Performed By: #### L 100.0500 #### [facility] [address] [place], [address] MCV (RBC) [Entitic vol] 85.6 fL Normal 80-94 [facility] Comment on above: Order Comment: 104.1 Performed By: #### L 100.0500 #### [facility] [address] [place], [address] Platelet mean volume (Bld) [Entitic vol] 8.9 fL Normal 6.2-12.0 [facility] Comment on above: Order Comment: 104.1 Performed By: #### L 100.0500 #### [facility] [address] [place], [address] Platelets (Bld) [#/Vol] 349 10*3/uL Normal 150-450 [facility] Comment on above: Order Comment: 104.1 Performed By: #### L 100.0500 #### [facility] [address] [place], [address] RBC (Bld) [#/Vol] 2.84 10*6/uL Low 4.6-6.2 [facility] Comment on above: Order Comment: 104.1 Performed By: #### L 100.0500 #### [facility] [address] [place], [address] RDW SD 48.9 fl High 35.1-43.9 [facility] Comment on above: Order Comment: 104.1 Performed By: #### L 100.0500 #### [facility] [address] [place], [address] WBC (Bld) [#/Vol] 8.2 10*3/uL Normal 4.4-11.0 [facility] Comment on above: Order Comment: 104.1 Performed By: #### L 100.0500 #### [facility] [address] [place], [address] Basic Metabolic Profile (BMP )on 05-22-2025 BUN/CRE 20.1 RATIO High 10-20 [facility] Comment on above: Order Comment: 104.1 Performed By: #### L 500.2500, L100.0100, L501.6710 #### [facility] [address] [place], [address] Calcium [Mass/Vol] 8.8 mg/dL Normal 7.6-11.0 [facility] Comment on above: Order Comment: 104.1 Performed By: #### L 500.2500, L100.0100, L501.6710 #### [facility] [address] [place], [address] Chloride [Moles/Vol] 101 mmol/L Normal 98-108 [facility] Comment on above: Order Comment: 104.1 Performed By: #### L 500.2500, L100.0100, L501.6710 #### [facility] [address] [place], [address] CO2 [Moles/Vol] 23.0 mmol/L Normal 21.0-32.0 [facility] Comment on above: Order Comment: 104.1 Performed By: #### L 500.2500, L100.0100, L501.6710 #### [facility] [address] [place], [address] Creatinine [Mass/Vol] 0.79 mg/dL Normal 0.70-1.20 [facility] Comment on above: Order Comment: 104.1 Performed By: #### L 500.2500, L100.0100, L501.6710 #### [facility] [address] [place], [address] GAP 11 Normal 5-15 [facility] Comment on above: Order Comment: 104.1 Performed By: #### L 500.2500, L100.0100, L501.6710 #### [facility] [address] [place], [address] GFR/1.73 sq M.predicted among non-blacks MDRD (S/P/Bld) [Vol rate/Area] 94 mL/min/{1.73_m2} Normal >60 [facility] Comment on above: Order Comment: 104.1 Result Comment: mL/m in/1.73m2 CKD-EPI Creatinine Equation (2020) Performed By: #### L 500.2500, L100.0100, L501.6710 #### [facility] [address] [place], [address] Glucose [Mass/Vol] 123 mg/dL High 70-99 [facility] Comment on above: Order Comment: 104.1 Performed By: #### L 500.2500, L100.0100, L501.6710 #### [facility] [address] [place], [address] Potassium [Moles/Vol] 4.4 mmol/L Normal 3.3-5.1 [facility] Comment on above: Order Comment: 104.1 Performed By: #### L 500.2500, L100.0100, L501.6710 #### [facility] [address] [place], [address] Sodium [Moles/Vol] 135 mmol/L Normal 133-145 [facility] Comment on above: Order Comment: 104.1 Performed By: #### L 500.2500, L100.0100, L501.6710 #### [facility] [address] [place], [address] Urea nitrogen [Mass/Vol] 16 mg/dL Normal 4-19 [facility] Comment on above: Order Comment: 104.1 Performed By: #### L 500.2500, L100.0100, L501.6710 #### [facility] [address] [place], [address] CBC W/Diff, Automatedon 09-0 2-2024 Absolute Lymph 0.98 X10 3/uL Normal 0.83-4.51 [facility] Comment on above: Order Comment: 104.1 Performed By: #### L 500.2500, L100.0100, L501.6710 #### [facility] [address] [place], [address] Absolute Neut 8.2 X10 3/uL High 2.0-7.7 [facility] Comment on above: Order Comment: 104.1 Performed By: #### L 500.2500, L100.0100, L501.6710 #### [facility] [address] [place], [address] Basophils/100 WBC (Bld) 0.4 % Normal 0-1 [facility] Comment on above: Order Comment: 104.1 Performed By: #### L 500.2500, L100.0100, L501.6710 #### [facility] [address] [place], [address] Eosinophils/100 WBC (Bld) 2.9 % Normal 0-5 [facility] Comment on above: Order Comment: 104.1 Performed By: #### L 500.2500, L100.0100, L501.6710 #### [facility] [address] [place], [address] Erythrocyte distribution width (RBC) [Ratio] 15.6 % High 11.6-14.6 [facility] Comment on above: Order Comment: 104.1 Performed By: #### L 500.2500, L100.0100, L501.6710 #### [facility] [address] [place], [address] Hematocrit (Bld) [Volume fraction] 24.5 % Low 40-54 [facility] Comment on above: Order Comment: 104.1 Performed By: #### L 500.2500, L100.0100, L501.6710 #### [facility] [address] [place], [address] Hemoglobin (Bld) [Mass/Vol] 7.7 g/dL Low 13.0-16.5 [facility] Comment on above: Order Comment: 104.1 Performed By: #### L 500.2500, L100.0100, L501.6710 #### [facility] [address] [place], [address] IG% 0.600 Normal 0.0-0.9 [facility] Comment on above: Order Comment: 104.1 Result Comment: IG% - Immature Granulocytes (promyelocytes, myelocytes and metamyelocytes) > 1% indicates that a LEFT SHIFT is Present. Performed By: #### L 500.2500, L100.0100, L501.6710 #### [facility] [address] [place], [address] Lymphocytes/100 WBC (Bld) 9.5 % Low 19-41 [facility] Comment on above: Order Comment: 104.1 Performed By: #### L 500.2500, L100.0100, L5.10 #### [facility] [address] [place], [address] MCH (RBC) [Entitic mass] 27.1 pg Normal 27.0-32.0 [facility] Comment on above: Order Comment: 104.1 Performed By: #### L 500.2500, L100.0100, L5.10 #### [facility] [address] [place], [address] MCHC (RBC) [Mass/Vol] 31.4 g/dL Low 32-36 [facility] Comment on above: Order Comment: 104.1 Performed By: #### L 500.2500, L100.0100, L501.10 #### [facility] [address] [place], [address] MCV (RBC) [Entitic vol] 86.3 fL Normal 80-94 [facility] Comment on above: Order Comment: 104.1 Performed By: #### L 500.2500, L100.0100, L501.10 #### [facility] [address] [place], [address] Monocytes/100 WBC (Bld) 7.4 % Normal 0-10 [facility] Comment on above: Order Comment: 104.1 Performed By: #### L 500.2500, L100.0100, [id number] #### [facility] [address] [place], [address] Neutrophils/100 WBC (Bld) 79.2 % High 47-70 [facility] Comment on above: Order Comment: 104.1 Performed By: #### L 500.2500, L100.0100, [id number] #### [facility] [address] [place], [address] Nucleated RBC (Bld) [#/Vol] 0 10*3/uL Normal 0-5 [facility] Comment on above: Order Comment: 104.1 Performed By: #### L 500.2500, L100.0100, L501.6710 #### [facility] [address] [place], [address] Platelet mean volume (Bld) [Entitic vol] 9.0 fL Normal 6.2-12.0 [facility] Comment on above: Order Comment: 104.1 Performed By: #### L 500.2500, L100.0100, [id number] #### [facility] [address] [place], [address] Platelets (Bld) [#/Vol] 365 10*3/uL Normal 150-450 [facility] Comment on above: Order Comment: 104.1 Performed By: #### L 500.2500, L100.0100, [id number] #### [facility] [address] [place], [address] RBC (Bld) [#/Vol] 2.84 10*6/uL Low 4.6-6.2 [facility] Comment on above: Order Comment: 104.1 Performed By: #### L 500.2500, L100.0100, L501.6710 #### [facility] [address] [place], [address] RDW SD 49.7 fl High 35.1-43.9 [facility] Comment on above: Order Comment: 104.1 Performed By: #### L 500.2500, L100.0100, L501.6710 #### [facility] [address] [place], [address] WBC (Bld) [#/Vol] 10.4 10*3/uL Normal 4.4-11.0 [facility] Comment on above: Order Comment: 104.1 Performed By: #### L 500.2500, L100.0100, L501.6710 #### [facility] [address] [place], [address] CRPon 05-22-2025 C-REACTIVE PROT 43.90 mg/L High 0.0-3.0 [facility] Comment on above: Order Comment: 104.1 Performed By: #### L 500.2500, L100.0100, L501.6710 #### [facility] [address] [place], [address] Wound Cultureon 05-18-2025 WC SACRUM, PURULENT MARCELINO [...] S Vancomycin Islt ELIANA <=0.5 S Normal [facility] Comment on above: Performed By: #### M 100.3000, M1.1999 #### [facility] [address] [place], [address] Gram Stainon 05-15-2025 GS SACRUM, PURULENT MARCELINO INAGE FOR 1 DAY. Gram Stain 4+ Gram positive cocci 4+ Gram negative rods 3+ White Blood Cells Normal [facility] Comment on above: Performed By: #### M 100.3000, M1.1999 #### [facility] [address] [place], [address] CBC W/Diff, Automatedon 04-20 Absolute Lymph 1.09 X10 3/uL Normal 0.83-4.51 [facility] Comment on above: Order Comment: 104.1 Performed By: #### L 501.5200, L503.0106, L501.9520, L500.4050, L100.0100, L501.9985 #### [facility] [address] [place], [address] Absolute Neut 10.7 X10 3/uL High 2.0-7.7 [facility] Comment on above: Order Comment: 104.1 Performed By: #### L 501.5200, L503.0106, L501.9520, L500.4050, L100.0100, L501.9985 #### [facility] [address] [place], [address] Basophils/100 WBC (Bld) 0.5 % Normal 0-1 [facility] Comment on above: Order Comment: 104.1 Performed By: #### L 501.5200, L503.0106, L501.9520, L500.4050, L100.0100, L501.9985 #### [facility] [address] [place], [address] Eosinophils/100 WBC (Bld) 1.7 % Normal 0-5 [facility] Comment on above: Order Comment: 104.1 Performed By: #### L 501.5200, L503.0106, L501.9520, L500.4050, L100.0100, L501.9985 #### [facility] [address] [place], [address] Erythrocyte distribution width (RBC) [Ratio] 15.5 % High 11.6-14.6 [facility] Comment on above: Order Comment: 104.1 Performed By: #### L 501.5200, L503.0106, L501.9520, L500.4050, L100.0100, L501.9985 #### [facility] [address] [place], [address] Hematocrit (Bld) [Volume fraction] 28.8 % Low 40-54 [facility] Comment on above: Order Comment: 104.1 Performed By: #### L 501.5200, L503.0106, L501.9520, L500.4050, L100.0100, L501.9985 #### [facility] [address] [place], [address] Hemoglobin (Bld) [Mass/Vol] 9.2 g/dL Low 13.0-16.5 [facility] Comment on above: Order Comment: 104.1 Performed By: #### L 501.5200, L503.0106, L501.9520, L500.4050, L100.0100, L501.9985 #### [facility] [address] [place], [address] IG% 0.600 Normal 0.0-0.9 [facility] Comment on above: Order Comment: 104.1 Result Comment: IG% - Immature Granulocytes (promyelocytes, myelocytes and metamyelocytes) > 1% indicates that a LEFT SHIFT is Present. Performed By: #### L 501.5200, L503.0106, L501.9520, L500.4050, L100.0100, L501.9985 #### [facility] [address] [place], [address] Lymphocytes/100 WBC (Bld) 8.3 % Low 19-41 [facility] Comment on above: Order Comment: 104.1 Performed By: #### L 501.5200, L503.0106, L501.9520, L500.4050, L100.0100, L501.9985 #### [facility] [address] [place], [address] MCH (RBC) [Entitic mass] 27.8 pg Normal 27.0-32.0 [facility] Comment on above: Order Comment: 104.1 Performed By: #### L 501.5200, L503.0106, L501.9520, L500.4050, L100.0100, L501.9985 #### [facility] [address] [place], [address] MCHC (RBC) [Mass/Vol] 31.9 g/dL Low 32-36 [facility] Comment on above: Order Comment: 104.1 Performed By: #### L 501.5200, L503.0106, L501.9520, L500.4050, L100.0100, L501.9985 #### [facility] [address] [place], [address] MCV (RBC) [Entitic vol] 87.0 fL Normal 80-94 [facility] Comment on above: Order Comment: 104.1 Performed By: #### L 501.5200, L503.0106, L501.9520, L500.4050, L100.0100, L501.9985 #### [facility] [address] [place], [address] Monocytes/100 WBC (Bld) 7.7 % Normal 0-10 [facility] Comment on above: Order Comment: 104.1 Performed By: #### L 501.5200, L503.0106, L501.9520, L500.4050, L100.0100, L501.9985 #### [facility] [address] [place], [address] Neutrophils/100 WBC (Bld) 81.2 % High 47-70 [facility] Comment on above: Order Comment: 104.1 Performed By: #### L 501.5200, L503.0106, L501.9520, L500.4050, L100.0100, L501.9985 #### [facility] [address] [place], [address] Nucleated RBC (Bld) [#/Vol] 0 10*3/uL Normal 0-5 [facility] Comment on above: Order Comment: 104.1 Performed By: #### L 501.5200, L503.0106, L501.9520, L500.4050, L100.0100, L501.9985 #### [facility] [address] [place], [address] Platelet mean volume (Bld) [Entitic vol] 10.8 fL Normal 6.2-12.0 [facility] Comment on above: Order Comment: 104.1 Performed By: #### L 501.5200, L503.0106, L501.9520, L500.4050, L100.0100, L501.9985 #### [facility] [address] [place], [address] Platelets (Bld) [#/Vol] 268 10*3/uL Normal 150-450 [facility] Comment on above: Order Comment: 104.1 Performed By: #### L 501.5200, L503.0106, L501.9520, L500.4050, L100.0100, L501.9985 #### [facility] [address] [place], [address] RBC (Bld) [#/Vol] 3.31 10*6/uL Low 4.6-6.2 [facility] Comment on above: Order Comment: 104.1 Performed By: #### L 501.5200, L503.0106, L501.9520, L500.4050, L100.0100, L501.9985 #### [facility] [address] [place], [address] RDW SD 49.3 fl High 35.1-43.9 [facility] Comment on above: Order Comment: 104.1 Performed By: #### L 501.5200, L503.0106, L501.9520, L500.4050, L100.0100, L501.9985 #### [facility] [address] [place], [address] WBC (Bld) [#/Vol] 13.2 10*3/uL High 4.4-11.0 [facility] Comment on above: Order Comment: 104.1 Performed By: #### L 501.5200, L503.0106, L501.9520, L500.4050, L100.0100, L501.9985 #### [facility] [address] [place], [address] Comprehensive Metabolic Prof ilon 05-08-2025 Albumin [Mass/Vol] 3.2 g/dL Low 3.4-4.8 [facility] Comment on above: Order Comment: 104.1 Performed By: #### L 500.2500, L100.0100, L501.6710 #### [facility] [address] [place], [address] Albumin/Globulin [Mass ratio] 0.8 {ratio} Low 0.9-2.4 [facility] Comment on above: Order Comment: 104.1 Performed By: #### L 500.2500, L100.0100, L501.6710 #### [facility] [address] [place], [address] ALK PHOS 95 U/L Normal 40-129 [facility] Comment on above: Order Comment: 104.1 Performed By: #### L 500.2500, L100.0100, L501.6710 #### [facility] [address] [place], [address] ALT [Catalytic activity/Vol] 13 U/L Normal <=46 [facility] Comment on above: Order Comment: 104.1 Performed By: #### L 500.2500, L100.0100, L501.6710 #### [facility] [address] [place], [address] AST [Catalytic activity/Vol] 17 U/L Normal <=37 [facility] Comment on above: Order Comment: 104.1 Performed By: #### L 500.2500, L100.0100, L501.6710 #### [facility] [address] [place], [address] Bilirubin [Mass/Vol] 0.35 mg/dL Normal 0.00-1.30 [facility] Comment on above: Order Comment: 104.1 Performed By: #### L 500.2500, L100.0100, L501.6710 #### [facility] [address] [place], [address] BUN/CRE 26.4 RATIO High 10-20 [facility] Comment on above: Order Comment: 104.1 Performed By: #### L 500.2500, L100.0100, L501.6710 #### [facility] [address] [place], [address] Calcium [Mass/Vol] 8.9 mg/dL Normal 7.6-11.0 [facility] Comment on above: Order Comment: 104.1 Performed By: #### L 500.2500, L100.0100, L501.6710 #### [facility] [address] [place], [address] Chloride [Moles/Vol] 97 mmol/L Low 98-108 [facility] Comment on above: Order Comment: 104.1 Performed By: #### L 500.2500, L100.0100, L501.6710 #### [facility] [address] [place], [address] CO2 [Moles/Vol] 25.1 mmol/L Normal 21.0-32.0 [facility] Comment on above: Order Comment: 104.1 Performed By: #### L 500.2500, L100.0100, L501.6710 #### [facility] [address] [place], [address] Creatinine [Mass/Vol] 1.09 mg/dL Normal 0.70-1.20 [facility] Comment on above: Order Comment: 104.1 Performed By: #### L 500.2500, L100.0100, L501.6710 #### [facility] [address] [place], [address] GAP 14 Normal 5-15 [facility] Comment on above: Order Comment: 104.1 Performed By: #### L 500.2500, L100.0100, L501.6710 #### [facility] [address] [place], [address] GFR/1.73 sq M.predicted among non-blacks MDRD (S/P/Bld) [Vol rate/Area] 72 mL/min/{1.73_m2} Normal >60 [facility] Comment on above: Order Comment: 104.1 Result Comment: mL/m in/1.73m2 CKD-EPI Creatinine Equation (2020) Performed By: #### L 500.2500, L100.0100, L501.6710 #### [facility] [address] [place], [address] Globulin (S) [Mass/Vol] 3.8 g/dL Normal 2.2-4.2 [facility] Comment on above: Order Comment: 104.1 Performed By: #### L 500.2500, L100.0100, L501.6710 #### [facility] [address] [place], [address] Glucose [Mass/Vol] 121 mg/dL High 70-99 [facility] Comment on above: Order Comment: 104.1 Performed By: #### L 500.2500, L100.0100, L501.6710 #### [facility] [address] [place], [address] Potassium [Moles/Vol] 3.6 mmol/L Normal 3.3-5.1 [facility] Comment on above: Order Comment: 104.1 Performed By: #### L 500.2500, L100.0100, L501.6710 #### [facility] [address] [place], [address] Sodium [Moles/Vol] 136 mmol/L Normal 133-145 [facility] Comment on above: Order Comment: 104.1 Performed By: #### L 500.2500, L100.0100, L501.6710 #### [facility] [address] [place], [address] T PROT 7.0 g/dL Normal 5.9-8.4 [facility] Comment on above: Order Comment: 104.1 Performed By: #### L 500.2500, L100.0100, L501.6710 #### [facility] [address] [place], [address] Urea nitrogen [Mass/Vol] 29 mg/dL High -19 [facility] Comment on above: Order Comment: 104.1 Performed By: #### L 500.2500, L100.0100, L501.6710 #### [facility] [address] [place], [address] Hemoglobin A1con 05-08-2025 HbA1c (Bld) [Mass fraction] 6.6 % High <=5.6 [facility] Comment on above: Order Comment: 104.1 Result Comment: Norm al < 5.7 % Prediabetic 5.7 - 6.4 % Diabetic >or= 6.5 % Please note range changes. Performed By: #### L 501.5200, L503.0106, L501.9520, L500.4050, L100.0100, L501.9985 #### [facility] [address] [place], [address] Magnesiumon 05-08-2025 Magnesium [Mass/Vol] 1.9 mg/dL Normal 1.5-2.2 [facility] Comment on above: Order Comment: 104.1 Performed By: #### L 500.2500, L100.0100, L501.6710 #### [facility] [address] [place], [address] Thyroid Stim Hormone (TSH)on 05-08-2025 TSH 1.670 uIU/mL Normal 0.300-4.200 [facility] Comment on above: Order Comment: 104.1 Performed By: #### L 500.2500, L100.0100, L501.6710 #### [facility] [address] [place], [address] Vitamin B12on 05-08-2025 Cobalamin (Vitamin B12) [Mass/Vol] 431 pg/mL Normal 180-914 [facility] Comment on above: Order Comment: 104.1 Performed By: #### L 500.2500, L100.0100, L501.6710 #### [facility] [address] [place], [address] CBC W/Diff, Automatedon 04-20 Absolute Lymph 0.86 X10 3/uL Normal 0.83-4.51 [facility] Comment on above: Order Comment: 104.1 Performed By: #### L 500.4050, L100.0100 #### [facility] [address] [place], [address] Absolute Neut 12.7 X10 3/uL High 2.0-7.7 [facility] Comment on above: Order Comment: 104.1 Performed By: #### L 500.4050, L100.0100 #### [facility] [address] [place], [address] Basophils/100 WBC (Bld) 0.5 % Normal 0-1 [facility] Comment on above: Order Comment: 104.1 Performed By: #### L 500.4050, L100.0100 #### [facility] [address] [place], [address] Eosinophils/100 WBC (Bld) 0.5 % Normal 0-5 [facility] Comment on above: Order Comment: 104.1 Performed By: #### L 500.4050, L100.0100 #### [facility] [address] [place], [address] Erythrocyte distribution width (RBC) [Ratio] 15.9 % High 11.6-14.6 [facility] Comment on above: Order Comment: 104.1 Performed By: #### L 500.4050, L100.0100 #### [facility] [address] [place], [address] Hematocrit (Bld) [Volume fraction] 29.0 % Low 40-54 [facility] Comment on above: Order Comment: 104.1 Performed By: #### L 500.4050, L100.0100 #### [facility] [address] [place], [address] Hemoglobin (Bld) [Mass/Vol] 9.1 g/dL Low 13.0-16.5 [facility] Comment on above: Order Comment: 104.1 Performed By: #### L 500.4050, L100.0100 #### [facility] [address] [place], [address] IG% 0.800 Normal 0.0-0.9 [facility] Comment on above: Order Comment: 104.1 Result Comment: IG% - Immature Granulocytes (promyelocytes, myelocytes and metamyelocytes) > 1% indicates that a LEFT SHIFT is Present. Performed By: #### L 500.4050, L100.0100 #### [facility] [address] [place], [address] Lymphocytes/100 WBC (Bld) 5.8 % Low 19-41 [facility] Comment on above: Order Comment: 104.1 Performed By: #### L 500.4050, L100.0100 #### [facility] [address] [place], [address] MCH (RBC) [Entitic mass] 27.3 pg Normal 27.0-32.0 [facility] Comment on above: Order Comment: 104.1 Performed By: #### L 500.4050, L100.0100 #### [facility] [address] [place], [address] MCHC (RBC) [Mass/Vol] 31.4 g/dL Low 32-36 [facility] Comment on above: Order Comment: 104.1 Performed By: #### L 500.4050, L100.0100 #### [facility] [address] [place], [address] MCV (RBC) [Entitic vol] 87.1 fL Normal 80-94 [facility] Comment on above: Order Comment: 104.1 Performed By: #### L 500.4050, L100.0100 #### [facility] [address] [place], [address] Monocytes/100 WBC (Bld) 7.2 % Normal 0-10 [facility] Comment on above: Order Comment: 104.1 Performed By: #### L 500.4050, L100.0100 #### [facility] [address] [place], [address] Neutrophils/100 WBC (Bld) 85.2 % High 47-70 [facility] Comment on above: Order Comment: 104.1 Performed By: #### L 500.4050, L100.0100 #### [facility] [address] [place], [address] Nucleated RBC (Bld) [#/Vol] 0 10*3/uL Normal 0-5 [facility] Comment on above: Order Comment: 104.1 Performed By: #### L 500.4050, L100.0100 #### [facility] [address] [place], [address] Platelet mean volume (Bld) [Entitic vol] 11.6 fL Normal 6.2-12.0 [facility] Comment on above: Order Comment: 104.1 Performed By: #### L 500.4050, L100.0100 #### [facility] [address] [place], [address] Platelets (Bld) [#/Vol] 285 10*3/uL Normal 150-450 [facility] Comment on above: Order Comment: 104.1 Performed By: #### L 500.4050, L100.0100 #### [facility] [address] [place], [address] RBC (Bld) [#/Vol] 3.33 10*6/uL Low 4.6-6.2 [facility] Comment on above: Order Comment: 104.1 Performed By: #### L 500.4050, L100.0100 #### [facility] [address] [place], [address] RDW SD 49.9 fl High 35.1-43.9 [facility] Comment on above: Order Comment: 104.1 Performed By: #### L 500.4050, L100.0100 #### [facility] [address] [place], [address] WBC (Bld) [#/Vol] 15.0 10*3/uL High 4.4-11.0 [facility] Comment on above: Order Comment: 104.1 Performed By: #### L 500.4050, L100.0100 #### [facility] [address] [place], [address] Comprehensive Metabolic Prof ilon 05-03-2025 Albumin [Mass/Vol] 3.5 g/dL Normal 3.4-4.8 [facility] Comment on above: Order Comment: 104.1 Performed By: #### L 500.4050, L100.0100 #### [facility] [address] [place], [address] Albumin/Globulin [Mass ratio] 1.0 {ratio} Normal 0.9-2.4 [facility] Comment on above: Order Comment: 104.1 Performed By: #### L 500.4050, L100.0100 #### [facility] [address] [place], [address] ALK PHOS 106 U/L Normal 40-129 [facility] Comment on above: Order Comment: 104.1 Performed By: #### L 500.4050, L100.0100 #### [facility] [address] [place], [address] ALT [Catalytic activity/Vol] 11 U/L Normal <=46 [facility] Comment on above: Order Comment: 104.1 Performed By: #### L 500.4050, L100.0100 #### [facility] [address] [place], [address] AST [Catalytic activity/Vol] 20 U/L Normal <=37 [facility] Comment on above: Order Comment: 104.1 Performed By: #### L 500.4050, L100.0100 #### [facility] [address] [place], [address] Bilirubin [Mass/Vol] 0.52 mg/dL Normal 0.00-1.30 [facility] Comment on above: Order Comment: 104.1 Performed By: #### L 500.4050, L100.0100 #### [facility] [address] [place], [address] BUN/CRE 31.3 RATIO High 10-20 [facility] Comment on above: Order Comment: 104.1 Performed By: #### L 500.4050, L100.0100 #### [facility] [address] [place], [address] Calcium [Mass/Vol] 10.2 mg/dL Normal 7.6-11.0 [facility] Comment on above: Order Comment: 104.1 Performed By: #### L 500.4050, L100.0100 #### [facility] [address] [place], [address] Chloride [Moles/Vol] 93 mmol/L Low 98-108 [facility] Comment on above: Order Comment: 104.1 Performed By: #### L 500.4050, L100.0100 #### [facility] [address] [place], [address] CO2 [Moles/Vol] 23.6 mmol/L Normal 21.0-32.0 [facility] Comment on above: Order Comment: 104.1 Performed By: #### L 500.4050, L100.0100 #### [facility] [address] [place], [address] Creatinine [Mass/Vol] 1.13 mg/dL Normal 0.70-1.20 [facility] Comment on above: Order Comment: 104.1 Performed By: #### L 500.4050, L100.0100 #### [facility] [address] [place], [address] GAP 16 High 5-15 [facility] Comment on above: Order Comment: 104.1 Performed By: #### L 500.4050, L100.0100 #### [facility] [address] [place], [address] GFR/1.73 sq M.predicted among non-blacks MDRD (S/P/Bld) [Vol rate/Area] 69 mL/min/{1.73_m2} Normal >60 [facility] Comment on above: Order Comment: 104.1 Result Comment: mL/m in/1.73m2 CKD-EPI Creatinine Equation (2020) Performed By: #### L 500.4050, L100.0100 #### [facility] [address] [place], [address] Globulin (S) [Mass/Vol] 3.7 g/dL Normal 2.2-4.2 [facility] Comment on above: Order Comment: 104.1 Performed By: #### L 500.4050, L100.0100 #### [facility] [address] [place], [address] Glucose [Mass/Vol] 175 mg/dL High 70-99 [facility] Comment on above: Order Comment: 104.1 Performed By: #### L 500.4050, L100.0100 #### [facility] [address] [place], [address] Potassium [Moles/Vol] 4.0 mmol/L Normal 3.3-5.1 [facility] Comment on above: Order Comment: 104.1 Performed By: #### L 500.4050, L100.0100 #### [facility] [address] [place], [address] Sodium [Moles/Vol] 133 mmol/L Normal 133-145 [facility] Comment on above: Order Comment: 104.1 Performed By: #### L 500.4050, L100.0100 #### [facility] [address] [place], [address] T PROT 7.3 g/dL Normal 5.9-8.4 [facility] Comment on above: Order Comment: 104.1 Performed By: #### L 500.4050, L100.0100 #### [facility] [address] [place], [address] Urea nitrogen [Mass/Vol] 35 mg/dL High 4-19 [facility] Comment on above: Order Comment: 104.1 Performed By: #### L 500.4050, L100.0100 #### [facility] [address] [place], [address] ARTERIAL BLOOD GASESon 04-23 Base deficit (BldA) [Moles/Vol] -1 mmol/L Normal -2-0 [facility] Comment on above: Order Comment: Speci men Type: ARTERIAL BLOOD SPECIMENOrdering Facility: [facility] Address: [address] [place] [address] Performed By: #### A LLBG ####[facility] [id number] [address] [place] Body temperature 98.6 [degF] Normal [facility] Comment on above: Order Comment: Speci men Type: ARTERIAL BLOOD SPECIMENOrdering Facility: [facility] Address: [address] [place] [address] Performed By: #### A LLBG ####[facility]ORYCLIA [id number] [place] [address] [place] Calcium.ionized (BldV) [Mass/Vol] 1.20 mmol/L Normal 1.08-1.30 [facility] Comment on above: Order Comment: Speci men Type: ARTERIAL BLOOD SPECIMENOrdering Facility: [facility] Address: [address] [place] [address] Performed By: #### A LLBG ####[facility]ORYCL[facility] [id number] [place] [address] [place] Calcium.ionized adjusted to pH 7.4 (BldA) [Moles/Vol] 1.19 mmol/L Normal 1.08-1.30 [facility] Comment on above: Order Comment: Speci men Type: ARTERIAL BLOOD SPECIMENOrdering Facility: [facility] Address: [address] [place] [address] Performed By: #### A LLBG ####[facility]CL[facility] [id number] [address] [place] Carboxyhemoglobin (BldA) [Mass fraction] 1.2 % Normal 0.0-2.0 [facility] Comment on above: Order Comment: Speci men Type: ARTERIAL BLOOD SPECIMENOrdering Facility: [facility] [facility] Address: [address] [place] [address] Result Comment: Carb oxyhemoglobin Reference Range for Smokers: 2.0-8.0% Performed By: #### A LLBG ####[facility]ATORYCLIA [id number] [place] [address] [place] Chloride [Moles/Vol] 106 mmol/L High 97-105 [facility] Comment on above: Order Comment: Speci men Type: ARTERIAL BLOOD SPECIMENOrdering Facility: [facility] Address: [address] [place] [address] Performed By: #### A LLBG ####[facility]ATORYCLIA [id number] [place] [address] [place] CO2 (Bld) [Partial pressure] 38 mm Hg Normal 36-46 [facility] Comment on above: Order Comment: Speci men Type: ARTERIAL BLOOD SPECIMENOrdering Facility: [facility] Address: [address] [place] [address] Performed By: #### A LLBG ####[facility]ATORYCLIA [id number] [place] [address] [place] Glucose [Mass/Vol] 178 mg/dL High 60-105 [facility] Comment on above: Order Comment: Speci men Type: ARTERIAL BLOOD SPECIMENOrdering Facility: [facility] Address: [address] [place] [address] Performed By: #### A LLBG ####[facility]ATORYCLIA [id number] [address] [place] HCO3 (Bld) [Moles/Vol] 23 mmol/L Normal 22-26 [facility] Comment on above: Order Comment: Speci men Type: ARTERIAL BLOOD SPECIMENOrdering Facility: [facility] Address: [address] [place] [address] Performed By: #### A LLBG ####[facility]ATORYCLIA [id number] [address] [place] Hematocrit (Bld) [Volume fraction] 27.4 % Low 39.0-51.0 [facility] Comment on above: Order Comment: Speci men Type: ARTERIAL BLOOD SPECIMENOrdering Facility: [facility] Address: [address] [place] [address] Performed By: #### A LLBG ####[facility]ATORYCLIA [id number] [address] [place] Hemoglobin (Bld) [Mass/Vol] 8.8 g/dL Low 13.0-17.0 [facility] Comment on above: Order Comment: Speci men Type: ARTERIAL BLOOD SPECIMENOrdering Facility: [facility] Address: [address] [place] [address] Performed By: #### A LLBG ####[facility]ATORYCLIA [id number] [address] [place] Lactate [Moles/Vol] 1.9 mmol/L Normal 0.5-2.2 [facility] Comment on above: Order Comment: Speci men Type: ARTERIAL BLOOD SPECIMENOrdering Facility: [facility] Address: [address] [place] [address] Performed By: #### A LLBG ####[facility]ORYCLIA [id number] [address] [place] Methemoglobin (Bld) [Mass fraction] 1.1 % Normal 0.0-1.5 [facility] Comment on above: Order Comment: Speci men Type: ARTERIAL BLOOD SPECIMENOrdering Facility: [facility] Address: [address] [place] [address] Performed By: #### A LLBG ####[facility]ATORYCLIA [id number] [address] [place] O2 THERAPY NR=Non-Rebreather Mask Normal [facility] Comment on above: Order Comment: Speci men Type: ARTERIAL BLOOD SPECIMENOrdering Facility: [facility] Address: [address] [place] [address] Performed By: #### A LLBG ####[facility]ATORYCLIA [id number] [address] [place] Oxygen (Bld) [Partial pressure] 56 mm Hg Low 85-95 [facility] Comment on above: Order Comment: Speci men Type: ARTERIAL BLOOD SPECIMENOrdering Facility: [facility] Address: [address] [place] [address] Performed By: #### A LLBG ####[facility]ATORYCLIA [id number] [address] [place] Oxyhemoglobin (BldA) [Mass fraction] 84 % Low 95-98 [facility] Comment on above: Order Comment: Speci men Type: ARTERIAL BLOOD SPECIMENOrdering Facility: [facility] Address: [address] [place] [address] Performed By: #### A LLBG ####[facility]ORYCLIA [id number] [place] [address] [place] pH (Bld) 7.40 [pH] Normal 7.35-7.45 [facility] Comment on above: Order Comment: Speci men Type: ARTERIAL BLOOD SPECIMENOrdering Facility: [facility] Address: [address] [place] [address] Performed By: #### A LLBG ####[facility]ORYCLIA [id number] [place] [address] [place] Potassium [Moles/Vol] 3.4 mmol/L Low 3.5-5.0 [facility] Comment on above: Order Comment: Speci men Type: ARTERIAL BLOOD SPECIMENOrdering Facility: [facility] Address: [address] [place] [address] Performed By: #### A LLBG ####[facility]ATORYCLIA [id number] [address] Sodium [Moles/Vol] 142 mmol/L Normal 136-144 [facility] Comment on above: Order Comment: Speci men Type: ARTERIAL BLOOD SPECIMENOrdering Facility: [facility] Address: [address] [place] [address] Performed By: #### A LLBG ####[facility]ATORYCLIA [id number] [address] CBC Pnl Bld Autoon Hemoglobin (Bld) [Mass/Vol] 7.9 g/dL Low 13.0-17.0 [facility] Comment on above: Order Comment: Speci men Type: BLOOD SPECIMENOrdering Facility: [facility] Address: [address] [place] [address] Performed By: #### 5 8410-2 ####[facility]ORYCLIA [id number] [address] Order Comment: Speci men Type: VENOUS BLOOD SPECIMENOrdering Facility: [facility] Address: [address] [place] [address] Performed By: #### 2 4344-4 ####[facility]ATORYCLIA [id number] [address] CBC panel Auto (Bld)on 04-22 Erythrocyte distribution width (RBC) [Ratio] 14.9 % Normal 11.5-15.0 [facility] Comment on above: Order Comment: Speci men Type: BLOOD SPECIMENOrdering Facility: [facility] Address: [address] [place] [address] Performed By: #### 5 8410-2 ####[facility]ATORYCLIA [id number] [address] [place] Hematocrit (Bld) [Volume fraction] 25.6 % Low 39.0-51.0 [facility] Comment on above: Order Comment: Speci men Type: BLOOD SPECIMENOrdering Facility: [facility] Address: [address] [place] [address] Performed By: #### 5 8410-2 ####[facility]ATORYCLIA [id number] [address] MCH (RBC) [Entitic mass] 27.2 pg Normal 26.0-34.0 [facility] Comment on above: Order Comment: Speci men Type: BLOOD SPECIMENOrdering Facility: [facility] Address: [address] [place] [address] Performed By: #### 5 8410-2 ####[facility]ATORYCLIA [id number] [address] MCHC (RBC) [Mass/Vol] 30.9 g/dL Normal 30.5-36.0 [facility] Comment on above: Order Comment: Speci men Type: BLOOD SPECIMENOrdering Facility: [facility] Address: [address] [place] [address] Performed By: #### 5 8410-2 ####[facility]ATORYCLIA [id number] [address] MCV (RBC) [Entitic vol] 88.3 fL Normal 80.0-100.0 [facility] Comment on above: Order Comment: Speci men Type: BLOOD SPECIMENOrdering Facility: [facility] Address: [address] [place] [address] Performed By: #### 5 8410-2 ####[facility]ATORYCLIA [id number] [address] Nucleated RBC (Bld) [#/Vol] 10*3/uL Normal <0.01 [facility] Comment on above: Order Comment: Speci men Type: BLOOD SPECIMENOrdering Facility: [facility] Address: [address] [place] [address] Performed By: #### 5 8410-2 ####[facility]ATORYCLIA [id number] [address] STATES [facility] Platelet mean volume (Bld) [Entitic vol] 10.4 fL Normal 9.0-12.7 [facility] Comment on above: Order Comment: Speci men Type: BLOOD SPECIMENOrdering Facility: [facility] Address: [address] [place] [address] Performed By: #### 5 8410-2 ####[facility]ATORYCLIA [id number] [address] [place] Platelets (Bld) [#/Vol] 405 10*3/uL High 150-400 [facility] Comment on above: Order Comment: Speci men Type: BLOOD SPECIMENOrdering Facility: [facility] Address: [address] [place] [address] Performed By: #### 5 8410-2 ####[facility]ATORYCLIA [id number] [address] RBC (Bld) [#/Vol] 2.90 10*6/uL Low 4.20-6.00 [facility] Comment on above: Order Comment: Speci men Type: BLOOD SPECIMENOrdering Facility: [facility] Address: [address] [place] [address] Performed By: #### 5 8410-2 ####[facility]ATORYCLIA [id number] [address] [place] WBC (Bld) [#/Vol] 15.78 10*3/uL High 3.70-11.00 [facility] Comment on above: Order Comment: Speci men Type: BLOOD SPECIMENOrdering Facility: [facility] Address: [address] [place] [address] Performed By: #### 5 8410-2 ####[facility]ATORYCLIA [id number] [address] [place] Comprehensive metabolic 2000 panelon 04-22-2025 Albumin [Mass/Vol] 2.9 g/dL Low 3.9-4.9 [facility] Comment on above: Order Comment: Speci men Type: BLOOD SPECIMENOrdering Facility: [facility] Address: [address] [place] [address] Performed By: #### 2 4323-8, , 2776-09 ####[facility]ATORYCLIA [id number] [place] [address] [place] ALP [Catalytic activity/Vol] 174 U/L High 38-113 [facility] Comment on above: Order Comment: Speci men Type: BLOOD SPECIMENOrdering Facility: [facility] Address: [address] [place] [address] Performed By: #### 2 4323-8, , 2776-09 ####[facility]ATORYCLIA [id number] [place] [address] [place] ALT With P-5'-P [Catalytic activity/Vol] 31 U/L Normal 10-54 [facility] Comment on above: Order Comment: Speci men Type: BLOOD SPECIMENOrdering Facility: [facility] Address: [address] [place] [address] Performed By: #### 2 4323-8, , 2776-09 ####[facility]ATORYCLIA [id number] [address] [place] Anion gap [Moles/Vol] 11 mmol/L Normal 8-15 [facility] Comment on above: Order Comment: Speci men Type: BLOOD SPECIMENOrdering Facility: [facility] Address: [address] [place] [address] Performed By: #### 2 4323-8, , 2776-09 ####[facility]ATORYCLIA [id number] [place] [address] [place] AST With P-5'-P [Catalytic activity/Vol] 21 U/L Normal 14-40 [facility] Comment on above: Order Comment: Speci men Type: BLOOD SPECIMENOrdering Facility: [facility] Address: [address] [place] [address] Performed By: #### 2 4323-8, , 2776-09 ####[facility]ATORYCLIA [id number] [place] [address] [place] Bilirubin [Mass/Vol] 0.3 mg/dL Normal 0.2-1.3 [facility] Comment on above: Order Comment: Speci men Type: BLOOD SPECIMENOrdering Facility: [facility] Address: [facility] [place] [id number] Performed By: #### 2 432-8, , 2776-09 ####[facility]ATORYCLIA [id number] [place] [address] [place] Calcium [Mass/Vol] 8.8 mg/dL Normal 8.5-10.2 [facility] Comment on above: Order Comment: Speci men Type: BLOOD SPECIMENOrdering Facility: [facility] Address: [address] [place] [address] Performed By: #### 2 432-8, , 2776-09 ####[facility]ATORYCLIA [id number] [place] [address] [place] CO2 [Moles/Vol] 26 mmol/L Normal 22-30 [facility] Comment on above: Order Comment: Speci men Type: BLOOD SPECIMENOrdering Facility: [facility] Address: [facility] [place] [address] Performed By: #### 2 4323-8, , 2776-09 ####[facility]ATORYCLIA [id number] [place] [address] [place] Creatinine [Mass/Vol] 1.07 mg/dL Normal 0.73-1.22 [facility] Comment on above: Order Comment: Speci men Type: BLOOD SPECIMENOrdering Facility: [facility] Address: [facility] [place] [address] Performed By: #### 2 4323-8, , 2776-09 ####[facility]ORATORYCLIA [id number] [place] [address] [place] eGFRcr SerPlBld CKD-EPI 2020 73 mL/min/1.73m??? Normal >=60 [facility] Comment on above: Order Comment: Jose Cruz johnson Type: BLOOD SPECIMENOrdering Facility: [facility] Address: [address] [place] [address] Result Comment: Mary Kay mated Glomerular Filtration [...] Performed By: #### 2 4323-8, , 2776-09 ####[facility]ATORYCLIA [id number] [place] [address] [place] Protein [Mass/Vol] 6.2 g/dL Low 6.3-8.0 [facility] Comment on above: Order Comment: Jose Cruz johnson Type: BLOOD SPECIMENOrdering Facility: [facility] Address: [address] [place] [address] Performed By: #### 2 4323-8, , 2776-09 ####[facility]ATORYCLIA [id number] [place] [address] [place] Sodium [Moles/Vol] 142 mmol/L Normal 136-144 [facility] Comment on above: Order Comment: Jose Cruz johnson Type: BLOOD SPECIMENOrdering Facility: [facility] Address: [address] [place] [address] Performed By: #### 2 4323-8, , 2776-09 ####[facility]ATORYCLIA [id number] [place] [address] [place] Urea nitrogen [Mass/Vol] 31 mg/dL High 9-24 [facility] Comment on above: Order Comment: Jose Cruz johnson Type: BLOOD SPECIMENOrdering Facility: [facility] Address: [address] [place] [address] Performed By: #### 2 4323-8, 91949-8, 2777-1 ####[facility]ATORYCLIA [id number] [address] Gas + CO Pnl BldVon 04-22-20 25 Chloride [Moles/Vol] 105 mmol/L Normal 98-107 [facility] Comment on above: Order Comment: Speci men Type: VENOUS BLOOD SPECIMENOrdering Facility: [facility] Address: [address] [place] [address] Performed By: #### 2 4344-4 ####[facility]ATORYCLIA [id number] [address] Order Comment: Dahianai men Type: BLOOD SPECIMENOrdering Facility: [facility] Address: [address] [place] [address] Performed By: #### 2 4323-8, 05060-2, 2777-1 ####[facility]ATORYCLIA [id number] [address] Glucose [Mass/Vol] 183 mg/dL High 74-99 [facility] Comment on above: Order Comment: Dahianai men Type: VENOUS BLOOD SPECIMENOrdering Facility: [facility] Address: [address] [place] [address] Performed By: #### 2 4344-4 ####[facility]ATORYCLIA [id number] [address] Order Comment: Speci men Type: BLOOD SPECIMENOrdering Facility: [facility] Address: [address] [place] [address] Result Comment: The [place] Diabetes Association (ADA) provides guidance for cutoff [...] Standards of Medical Care in Diabetes 2016, [place] Diabetes Association. Diabetes Care. 2016.39(Suppl 1). Performed By: #### 2 4323-8, 89073-9, 277-1 ####[facility]ATORYCLIA [id number] [place] [address] [place] Potassium [Moles/Vol] 3.9 mmol/L Normal 3.7-5.1 [facility] Comment on above: Order Comment: Speci men Type: VENOUS BLOOD SPECIMENOrdering Facility: [facility] Address: [address] [place] [address] Performed By: #### 2 4344-4 ####[facility]ATORYCLIA [id number] [address] [place] Order Comment: Speci men Type: BLOOD SPECIMENOrdering Facility: [facility] Address: [address] [place] [address] Performed By: #### 2 4323-8, , 2776-09 ####[facility]ATORYCLIA [id number] [address] [place] Gas and Carbon monoxide pane l (BldV)on 04-22-2025 Base excess Calc (BldV) [Moles/Vol] 3 mmol/L High 0-2 [facility] Comment on above: Order Comment: Speci men Type: VENOUS BLOOD SPECIMENOrdering Facility: [facility] Address: [address] [place] [address] Performed By: #### 2 4344-4 ####[facility]ATORYCLIA [id number] [address] [place] Body temperature 98.6 [degF] Normal [facility] Comment on above: Order Comment: Speci men Type: VENOUS BLOOD SPECIMENOrdering Facility: [facility] Address: [facility] [place] [address] Performed By: #### 2 4344-4 ####[facility]ATORYCLIA [id number] [address] Calcium.ionized (BldV) [Mass/Vol] 1.18 mmol/L Normal 1.08-1.30 [facility] Comment on above: Order Comment: Speci men Type: VENOUS BLOOD SPECIMENOrdering Facility: [facility] Address: [address] [place] [address] Performed By: #### 2 4344-4 ####[facility]ATORYCLIA [id number] [address] STATES OF [facility] Calcium.ionized adjusted to pH 7.4 (BldA) [Moles/Vol] 1.17 mmol/L Normal 1.08-1.30 [facility] Comment on above: Order Comment: Speci men Type: VENOUS BLOOD SPECIMENOrdering Facility: [facility] Address: [address] [place] [address] Performed By: #### 2 4344-4 ####[facility]ATORYCLIA [id number] [address] STATES [facility] Carboxyhemoglobin (BldV) [Mass fraction] 1.9 % Normal 0.0-2.0 [facility] Comment on above: Order Comment: Speci men Type: VENOUS BLOOD SPECIMENOrdering Facility: [facility] Address: [address] [place] [address] Result Comment: Carb oxyhemoglobin Reference Range for Smokers: 2.0-8.0% Performed By: #### 2 4344-4 ####[facility]ATORYCLIA [id number] [place] [address] [place] CO2 (BldV) [Partial pressure] 47 mm[Hg] Normal 42-55 [facility] Comment on above: Order Comment: Speci men Type: VENOUS BLOOD SPECIMENOrdering Facility: [facility] Address: [address] [place] [address] Performed By: #### 2 4344-4 ####[facility]ATORYCLIA [id number] [address] [place] FIO2 40 % Normal [facility] Comment on above: Order Comment: Speci men Type: VENOUS BLOOD SPECIMENOrdering Facility: [facility] Address: [address] [place] [address] Performed By: #### 2 4344-4 ####[facility]ORATORYCLIA [id number] [address] [place] HCO3 (Bld) [Moles/Vol] 28 mmol/L Normal 24-28 [facility] Comment on above: Order Comment: Speci men Type: VENOUS BLOOD SPECIMENOrdering Facility: [facility] Address: [address] [place] [address] Performed By: #### 2 4344-4 ####[facility] LABORATORYCLIA [id number] [address] Hematocrit (Bld) [Volume fraction] 24.7 % Low 39.0-51.0 [facility] Comment on above: Order Comment: Speci men Type: VENOUS BLOOD SPECIMENOrdering Facility: [facility] Address: [address] [place] [address] Performed By: #### 2 4344-4 ####[facility]ATORYCLIA [id number] [address] [place] IPAP (CM H2O) 12 Normal [facility] Comment on above: Order Comment: Speci men Type: VENOUS BLOOD SPECIMENOrdering Facility: [facility] Address: [address] [place] [address] Performed By: #### 2 4344-4 ####[facility]ATORYCLIA [id number] [address] [place] Lactate [Moles/Vol] 0.9 mmol/L Normal 0.5-2.2 [facility] Comment on above: Order Comment: Speci men Type: VENOUS BLOOD SPECIMENOrdering Facility: [facility] Address: [address] [place] [address] Performed By: #### 2 4344-4 ####[facility]ORATORYCLIA [id number] [address] [place] Methemoglobin (Bld) [Mass fraction] 1.0 % Normal 0.0-1.5 [facility] Comment on above: Order Comment: Speci men Type: VENOUS BLOOD SPECIMENOrdering Facility: [facility] Address: [address] [place] [address] Performed By: #### 2 4344-4 ####[facility]ORATORYCLIA [id number] [address] [place] O2 THERAPY NIV=Noninvasive Ventilation Normal [facility] Comment on above: Order Comment: Speci men Type: VENOUS BLOOD SPECIMENOrdering Facility: [facility] Address: [address] [place] [address] Performed By: #### 2 4344-4 ####[facility]ORATORYCLIA [id number] [address] [place] Oxygen (BldV) [Partial pressure] 60 mm[Hg] High 35-45 [facility] Comment on above: Order Comment: Speci men Type: VENOUS BLOOD SPECIMENOrdering Facility: [facility] Address: [address] [place] [address] Performed By: #### 2 4344-4 ####[facility]ATORYCLIA [id number] [address] [place] Oxygen saturation in Venous blood 88 % High 60-85 [facility] Comment on above: Order Comment: Speci men Type: VENOUS BLOOD SPECIMENOrdering Facility: [facility] Address: [address] [place] [address] Performed By: #### 2 4344-4 ####[facility]ATORYCLIA [id number] [address] [place] Oxyhemoglobin (BldV) [Mass fraction] 85 % Normal 60-85 [facility] Comment on above: Order Comment: Speci men Type: VENOUS BLOOD SPECIMENOrdering Facility: [facility] Address: [address] [place] [address] Performed By: #### 2 4344-4 ####[facility]ATORYCLIA [id number] [place] [address] [place] PEEP/CPAP 5 cmH2O Normal [facility] Comment on above: Order Comment: Speci men Type: VENOUS BLOOD SPECIMENOrdering Facility: [facility] Address: [address] [place] [address] Performed By: #### 2 4344-4 ####[facility]ORYCLIA [id number] [address] [place] pH (BldV) 7.39 [pH] Normal 7.32-7.42 [facility] Comment on above: Order Comment: Speci men Type: VENOUS BLOOD SPECIMENOrdering Facility: [facility] Address: [address] [place] [address] Performed By: #### 2 4344-4 ####[facility]ATORYCLIA [id number] [address] SET VENTILATOR RESPIRATORY RATE (BPM) 14 BPM Normal [facility] Comment on above: Order Comment: Speci men Type: VENOUS BLOOD SPECIMENOrdering Facility: [facility] Address: [address] [place] [address] Performed By: #### 2 4344-4 ####[facility]ORYCLIA [id number] [address] [place] Sodium [Moles/Vol] 143 mmol/L Normal 136-144 [facility] Comment on above: Order Comment: Speci men Type: VENOUS BLOOD SPECIMENOrdering Facility: [facility] Address: [address] [place] [address] Performed By: #### 2 4344-4 ####[facility]ORYCLIA [id number] [address] [place] Hgb Bld-mCncon 04-22-2025 Hemoglobin (Bld) [Mass/Vol] 7.7 g/dL Low 13.0-17.0 [facility] Comment on above: Order Comment: Speci men Type: BLOOD SPECIMENOrdering Facility: [facility] Address: [address] [place] [address] Performed By: #### 7 18-7 ####[facility]ORATORYCLIA [id number] [place] [address] [place] Hemoglobin (Bld) [Mass/Vol] 8.1 g/dL Low 13.0-17.0 [facility] Comment on above: Order Comment: Speci men Type: BLOOD SPECIMENOrdering Facility: [facility] Address: [address] [place] [address] Performed By: #### 7 18-7 ####[facility]ORATORYCLIA [id number] [place] [id number] [place] Hemoglobin (Bld) [Mass/Vol] 7.5 g/dL Low 13.0-17.0 [facility] Comment on above: Order Comment: Speci men Type: BLOOD SPECIMENOrdering Facility: [facility] Address: [address] [place] [address] Performed By: #### 7 18-7 ####[facility]ORATORYCLIA [id number] [address] Magnesium SerPl-mCncon 04-22 Magnesium [Mass/Vol] 2.2 mg/dL Normal 1.7-2.3 [facility] Comment on above: Order Comment: Speci men Type: BLOOD SPECIMENOrdering Facility: [facility] Address: [address] [place] [address] Performed By: #### 2 4323-8, 67890-0, 27771 ####[facility]ORATORYCLIA [id number] [place] [address] [place] Phosphate SerPl-mCncon 04-22 Phosphate [Mass/Vol] 4.0 mg/dL Normal 2.7-4.8 [facility] Comment on above: Order Comment: Speci men Type: BLOOD SPECIMENOrdering Facility: [facility] Address: [address] [place] [address] Performed By: #### 2 4323-8, 43153-3, 2777-1 ####[facility]ORATORYCLIA [id number] [place] [id number] [place] CBC panel Auto (Bld)on 04-21 Erythrocyte distribution width (RBC) [Ratio] 14.9 % Normal 11.5-15.0 [facility] Comment on above: Order Comment: Speci men Type: BLOOD SPECIMENOrdering Facility: [facility] Address: [address] [place] [address] Performed By: #### 5 8410-2 ####[facility]ORATORYCLIA [id number] [address] [place] Hematocrit (Bld) [Volume fraction] 30.2 % Low 39.0-51.0 [facility] Comment on above: Order Comment: Speci men Type: BLOOD SPECIMENOrdering Facility: [facility] Address: [address] [place] [address] Performed By: #### 5 8410-2 ####[facility]ATORYCLIA [id number] [address] [place] Hemoglobin (Bld) [Mass/Vol] 9.0 g/dL Low 13.0-17.0 [facility] Comment on above: Order Comment: Speci men Type: BLOOD SPECIMENOrdering Facility: [facility] Address: [address] [place] [address] Performed By: #### 5 8410-2 ####[facility]ATORYCLIA [id number] [address] [place] MCH (RBC) [Entitic mass] 26.6 pg Normal 26.0-34.0 [facility] Comment on above: Order Comment: Speci men Type: BLOOD SPECIMENOrdering Facility: [facility] Address: [address] [place] [address] Performed By: #### 5 8410-2 ####[facility]ORATORYCLIA [id number] [address] [place] MCHC (RBC) [Mass/Vol] 29.8 g/dL Low 30.5-36.0 [facility] Comment on above: Order Comment: Speci men Type: BLOOD SPECIMENOrdering Facility: [facility] Address: [address] [place] [address] Performed By: #### 5 8410-2 ####[facility]ATORYCLIA [id number] [address] STATES OF [facility] MCV (RBC) [Entitic vol] 89.3 fL Normal 80.0-100.0 [facility] Comment on above: Order Comment: Speci men Type: BLOOD SPECIMENOrdering Facility: [facility] Address: [address] [place] [address] Performed By: #### 5 8410-2 ####[facility]ATORYCLIA [id number] [address] [place] Nucleated RBC (Bld) [#/Vol] 10*3/uL Normal <0.01 [facility] Comment on above: Order Comment: Speci men Type: BLOOD SPECIMENOrdering Facility: [facility] Address: [address] [place] [address] Performed By: #### 5 8410-2 ####[facility]ATORYCLIA [id number] [address] Platelet mean volume (Bld) [Entitic vol] 10.6 fL Normal 9.0-12.7 [facility] Comment on above: Order Comment: Speci men Type: BLOOD SPECIMENOrdering Facility: [facility] Address: [address] [place] [address] Performed By: #### 5 8410-2 ####[facility]ORATORYCLIA [id number] [address] Platelets (Bld) [#/Vol] 369 10*3/uL Normal 150-400 [facility] Comment on above: Order Comment: Speci men Type: BLOOD SPECIMENOrdering Facility: [facility] Address: [address] [place] [address] Performed By: #### 5 8410-2 ####[facility]ATORYCLIA [id number] [address] [place] RBC (Bld) [#/Vol] 3.38 10*6/uL Low 4.20-6.00 [facility] Comment on above: Order Comment: Speci men Type: BLOOD SPECIMENOrdering Facility: [facility] Address: [address] [place] [address] Performed By: #### 5 8410-2 ####[facility]ATORYCLIA [id number] [address] WBC (Bld) [#/Vol] 14.61 10*3/uL High 3.70-11.00 [facility] Comment on above: Order Comment: Speci men Type: BLOOD SPECIMENOrdering Facility: [facility] Address: [address] [place] [address] Performed By: #### 5 8410-2 ####[facility]ATORYCLIA [id number] [address] Comprehensive metabolic 2000 panelon 04-21-2025 Albumin [Mass/Vol] 2.8 g/dL Low 3.9-4.9 [facility] Comment on above: Order Comment: Speci men Type: BLOOD SPECIMENOrdering Facility: [facility] Address: [address] [place] [address] Performed By: #### 2 4323-8, 2776-09, ####[facility]ATORYCLIA [id number] [address] [place] ALP [Catalytic activity/Vol] 200 U/L High 38-113 [facility] Comment on above: Order Comment: Speci men Type: BLOOD SPECIMENOrdering Facility: [facility] Address: [address] [place] [address] Performed By: #### 2 4323-8, 2776-09, ####[facility]ATORYCLIA [id number] [address] ALT With P-5'-P [Catalytic activity/Vol] 46 U/L Normal 10-54 [facility] Comment on above: Order Comment: Speci men Type: BLOOD SPECIMENOrdering Facility: [facility] Address: [address] [place] [address] Performed By: #### 2 4323-8, 2776-, ####[facility]ATORYCLIA [id number] [place] [address] [place] Anion gap [Moles/Vol] 12 mmol/L Normal 8-15 [facility] Comment on above: Order Comment: Speci men Type: BLOOD SPECIMENOrdering Facility: [facility] Address: [address] [place] [address] Performed By: #### 2 4323-8, 2777, ####[facility]ATORYCLIA [id number] [place] [id number] [place] AST With P-5'-P [Catalytic activity/Vol] 38 U/L Normal 14-40 [facility] Comment on above: Order Comment: Speci men Type: BLOOD SPECIMENOrdering Facility: [facility] Address: [address] [place] [address] Performed By: #### 2 4323-8, 27703-20, ####[facility]ATORYCLIA [id number] [place] [address] [place] Bilirubin [Mass/Vol] 0.4 mg/dL Normal 0.2-1.3 [facility] Comment on above: Order Comment: Speci men Type: BLOOD SPECIMENOrdering Facility: [facility] Address: [address] [place] [address] Performed By: #### 2 4323-8, 2776-09, ####[facility]ATORYCLIA [id number] [place] [address] [place] Calcium [Mass/Vol] 8.5 mg/dL Normal 8.5-10.2 [facility] Comment on above: Order Comment: Speci men Type: BLOOD SPECIMENOrdering Facility: [facility] Address: [address] [place] [address] Performed By: #### 2 4323-8, 2776-09, ####[facility]ATORYCLIA [id number] [place] [address] [place] Chloride [Moles/Vol] 103 mmol/L Normal 98-107 [facility] Comment on above: Order Comment: Speci men Type: BLOOD SPECIMENOrdering Facility: [facility] Address: [address] [place] [address] Performed By: #### 2 4323-8, 2776-09, ####[facility]ATORYCLIA [id number] [place] [address] [place] CO2 [Moles/Vol] 22 mmol/L Normal 22-30 [facility] Comment on above: Order Comment: Speci men Type: BLOOD SPECIMENOrdering Facility: [facility] Address: [address] [place] [address] Performed By: #### 2 4323-8, 2776-09, ####[facility] INDIANACLIA [id number] [address] STATES OF [facility] Creatinine [Mass/Vol] 1.02 mg/dL Normal 0.73-1.22 [facility] Comment on above: Order Comment: Speci men Type: BLOOD SPECIMENOrdering Facility: [facility] Address: [address] [place] [address] Performed By: #### 2 4323-8, 2776-09, ####[facility]ATORYCLIA [id number] [address] [place] eGFRcr SerPlBld CKD-EPI 2020 78 mL/min/1.73m??? Normal >=60 [facility] Comment on above: Order Comment: Speci men Type: BLOOD SPECIMENOrdering Facility: [facility] Address: [address] [place] [address] Result Comment: Mary Kay mated Glomerular Filtration [...] GFR. Performed By: #### 2 4323-8, 27703-20, ####[facility]ATORYCLIA [id number] [place] [id number] [place] Glucose [Mass/Vol] 214 mg/dL High 74-99 [facility] Comment on above: Order Comment: Speci men Type: BLOOD SPECIMENOrdering Facility: [facility] Address: [address] [place] [address] Result Comment: The [place] Diabetes Association (ADA) provides guidance for cutoff [...] Standards of Medical Care in Diabetes 2016, [place] Diabetes Association. Diabetes Care. 2016.39(Suppl 1). Performed By: #### 2 4323-8, 27703-20, ####[facility]ITALIA [id number] [place] [id number] [place] Potassium [Moles/Vol] 3.7 mmol/L Normal 3.7-5.1 [facility] Comment on above: Order Comment: [place]ahian[place] men Type: BLOOD SPECIMENOrdering Facility: [facility] Address: [address] [place] [address] Performed By: #### 2 4323-8, 27703-20, ####[facility] INDIANACLIA [id number] [place] [address] [place] Protein [Mass/Vol] 6.6 g/dL Normal 6.3-8.0 [facility] Comment on above: Order Comment: Dahian[place] men Type: BLOOD SPECIMENOrdering Facility: [facility] Address: [address] [place], [place] [address] Performed By: #### 2 4323-8, 27703-20, ####[facility]ATORYCLIA [id number] [place] [address] [place] Sodium [Moles/Vol] 137 mmol/L Normal 136-144 [facility] Comment on above: Order Comment: Speci men Type: BLOOD SPECIMENOrdering Facility: [facility] Address: [address] [place] [address] Performed By: #### 2 4323-8, 2777-1, 38830-6 ####[facility]ATORYCLIA [id number] [place] [address] [place] Urea nitrogen [Mass/Vol] 23 mg/dL Normal 9-24 [facility] Comment on above: Order Comment: Speci men Type: BLOOD SPECIMENOrdering Facility: [facility] Address: [address] [place] [address] Performed By: #### 2 4323-8, 27703-20, ####[facility]ATORYCLIA [id number] [place] [id number] [place] Gas and Carbon monoxide pane l (BldV)on 04-21-2025 Base excess Calc (BldV) [Moles/Vol] 1 mmol/L Normal 0-2 [facility] Comment on above: Order Comment: Speci men Type: VENOUS BLOOD SPECIMENOrdering Facility: [facility] Address: [address] [place] [address] Performed By: #### 2 4344-4 ####[facility]ATORYCLIA [id number] [place] [id number] [place] Body temperature 98.6 [degF] Normal [facility] Comment on above: Order Comment: Speci men Type: VENOUS BLOOD SPECIMENOrdering Facility: [facility] Address: [address] [place] [address] Performed By: #### 2 4344-4 ####[facility]ATORYCLIA [id number] [place] [id number] [place] Calcium.ionized (BldV) [Mass/Vol] 1.13 mmol/L Normal 1.08-1.30 [facility] Comment on above: Order Comment: Speci men Type: VENOUS BLOOD SPECIMENOrdering Facility: [facility] Address: [address] [place] [address] Performed By: #### 2 4344-4 ####[facility]ATORYCLIA [id number] [place] [address] [place] Calcium.ionized adjusted to pH 7.4 (BldA) [Moles/Vol] 1.14 mmol/L Normal 1.08-1.30 [facility] Comment on above: Order Comment: Speci men Type: VENOUS BLOOD SPECIMENOrdering Facility: [facility] Address: [address] [place] [address] Performed By: #### 2 4344-4 ####[facility]ATORYCLIA [id number] [address] [place] Carboxyhemoglobin (BldV) [Mass fraction] 2.3 % High 0.0-2.0 [facility] Comment on above: Order Comment: Speci men Type: VENOUS BLOOD SPECIMENOrdering Facility: [facility] Address: [address] [place] [address] Result Comment: Carb oxyhemoglobin Reference Range for Smokers: 2.0-8.0% Performed By: #### 2 4344-4 ####[facility]ATORYCLIA [id number] [place] [address] [place] Chloride [Moles/Vol] 107 mmol/L High 97-105 [facility] Comment on above: Order Comment: Speci men Type: VENOUS BLOOD SPECIMENOrdering Facility: [facility] Address: [address] [place] [address] Performed By: #### 2 4344-4 ####[facility]ATORYCLIA [id number] [place] [address] [place] CO2 (BldV) [Partial pressure] 39 mm[Hg] Low 42-55 [facility] Comment on above: Order Comment: Speci men Type: VENOUS BLOOD SPECIMENOrdering Facility: [facility] Address: [address] [place] [address] Performed By: #### 2 4344-4 ####[facility]ORATORYCLIA [id number] [place] [address] [place] FIO2 40 % Normal [facility] Comment on above: Order Comment: Speci men Type: VENOUS BLOOD SPECIMENOrdering Facility: [facility] Address: [address] [place] [address] Performed By: #### 2 4344-4 ####[facility]ATORYCLIA [id number] [place] [address] [place] Glucose [Mass/Vol] 223 mg/dL High 60-105 [facility] Comment on above: Order Comment: Speci men Type: VENOUS BLOOD SPECIMENOrdering Facility: [facility] Address: [address] [place] [address] Performed By: #### 2 4344-4 ####[facility]ATORYCLIA [id number] [place] [address] [place] HCO3 (Bld) [Moles/Vol] 25 mmol/L Normal 24-28 [facility] Comment on above: Order Comment: Speci men Type: VENOUS BLOOD SPECIMENOrdering Facility: [facility] Address: [address] [place] [address] Performed By: #### 2 4344-4 ####[facility]ATORYCLIA [id number] [address] [place] Hematocrit (Bld) [Volume fraction] 25.1 % Low 39.0-51.0 [facility] Comment on above: Order Comment: Speci men Type: VENOUS BLOOD SPECIMENOrdering Facility: [facility] Address: [address] [place] [address] Performed By: #### 2 4344-4 ####[facility]ATORYCLIA [id number] [address] [place] Hemoglobin (Bld) [Mass/Vol] 8.1 g/dL Low 13.0-17.0 [facility] Comment on above: Order Comment: Speci men Type: VENOUS BLOOD SPECIMENOrdering Facility: [facility] Address: [address] [place] [address] Performed By: #### 2 4344-4 ####[facility]ORATORYCLIA [id number] [place] [address] [place] INHALED TIDAL VOLUME (ML) 450 Normal [facility] Comment on above: Order Comment: Speci men Type: VENOUS BLOOD SPECIMENOrdering Facility: [facility] Address: [address] [place] [address] Performed By: #### 2 4344-4 ####[facility]ORATORYCLIA [id number] [address] [place] Lactate [Moles/Vol] 0.9 mmol/L Normal 0.5-2.2 [facility] Comment on above: Order Comment: Speci men Type: VENOUS BLOOD SPECIMENOrdering Facility: [facility] Address: [address] [place] [address] Performed By: #### 2 4344-4 ####[facility]ATORYCLIA [id number] [address] [place] Methemoglobin (Bld) [Mass fraction] 1.4 % Normal 0.0-1.5 [facility] Comment on above: Order Comment: Speci men Type: VENOUS BLOOD SPECIMENOrdering Facility: [facility] Address: [address] [place] [address] Performed By: #### 2 4344-4 ####[facility] LABORATORYCLIA [id number] [address] [place] O2 THERAPY VENT=Ventilator Normal [facility] Comment on above: Order Comment: Speci men Type: VENOUS BLOOD SPECIMENOrdering Facility: [facility] Address: [address] [place] [address] Performed By: #### 2 4344-4 ####[facility] LABORATORYCLIA [id number] [address] [place] Oxygen (BldV) [Partial pressure] 77 mm[Hg] High 35-45 [facility] Comment on above: Order Comment: Speci men Type: VENOUS BLOOD SPECIMENOrdering Facility: [facility] Address: [address] [place] [address] Performed By: #### 2 4344-4 ####[facility]ORATORYCLIA [id number] [place], [place] [id number] [place] [address] STATES [facility] Oxygen saturation in Venous blood 94 % High 60-85 [facility] Comment on above: Order Comment: Speci men Type: VENOUS BLOOD SPECIMENOrdering Facility: [facility] Address: [address] [place] [address] Performed By: #### 2 4344-4 ####[facility] LABORATORYCLIA [id number] [place] [address] [place] Oxyhemoglobin (BldV) [Mass fraction] 91 % High 60-85 [facility] Comment on above: Order Comment: Speci men Type: VENOUS BLOOD SPECIMENOrdering Facility: [facility] Address: [address] [place] [address] Performed By: #### 2 4344-4 ####[facility]ATORYCLIA [id number] [place] [address] [place] PEEP/CPAP 5 cmH2O Normal [facility] Comment on above: Order Comment: Speci men Type: VENOUS BLOOD SPECIMENOrdering Facility: [facility] Address: [address] [place] [address] Performed By: #### 2 4344-4 ####[facility]ORATORYCLIA [id number] [address] [place] pH (BldV) 7.42 [pH] Normal 7.32-7.42 [facility] Comment on above: Order Comment: Speci men Type: VENOUS BLOOD SPECIMENOrdering Facility: [facility] Address: [address] [place] [address] Performed By: #### 2 4344-4 ####[facility]ORATORYCLIA [id number] [address] [place] Potassium [Moles/Vol] 3.6 mmol/L Normal 3.5-5.0 [facility] Comment on above: Order Comment: Speci men Type: VENOUS BLOOD SPECIMENOrdering Facility: [facility] Address: [address] [place] [address] Performed By: #### 2 4344-4 ####[facility]ORATORYCLIA [id number] [address] SET VENTILATOR RESPIRATORY RATE (BPM) 20 BPM Normal [facility] Comment on above: Order Comment: Speci men Type: VENOUS BLOOD SPECIMENOrdering Facility: [facility] Address: [address] [place] [address] Performed By: #### 2 4344-4 ####[facility]ORATORYCLIA [id number] [address] [place] Sodium [Moles/Vol] 141 mmol/L Normal 136-144 [facility] Comment on above: Order Comment: Speci men Type: VENOUS BLOOD SPECIMENOrdering Facility: [facility] Address: [address] [place] [address] Performed By: #### 2 4344-4 ####[facility] LABORATORYCLIA [id number] [address] HIGH SENSITIVITY TROPONIN To n 04-21-2025 Troponin T.cardiac High sensitivity method [Mass/Vol] 155 ng/L High <12 [facility] Comment on above: Order Comment: Speci men Type: BLOOD SPECIMENOrdering Facility: [facility] Address: [address] [place] [address] Performed By: #### H STNT ####[facility]ORATORYCLIA [id number] [address] [place] Troponin T.cardiac High sensitivity method [Mass/Vol] 161 ng/L High <12 [facility] Comment on above: Order Comment: Speci men Type: BLOOD SPECIMENOrdering Facility: [facility] Address: [address] [place] [address] Performed By: #### H STNT ####[facility]ORATORYCLIA [id number] [address] [place] Troponin T.cardiac High sensitivity method [Mass/Vol] 151 ng/L High <12 [facility] Comment on above: Order Comment: Speci men Type: BLOOD SPECIMENOrdering Facility: [facility] Address: [address] [place] [address] Performed By: #### H STNT ####[facility]ATORYCLIA [id number] [place] [address] [place] Hgb Bld-mCncon 04-21-2025 Hemoglobin (Bld) [Mass/Vol] 7.2 g/dL Low 13.0-17.0 [facility] Comment on above: Order Comment: Speci men Type: BLOOD SPECIMENOrdering Facility: [facility] Address: [address] [place] [address] Performed By: #### 7 18-7 ####[facility]ATORYCLIA [id number] [place] [address] [place] Hemoglobin (Bld) [Mass/Vol] 8.0 g/dL Low 13.0-17.0 [facility] Comment on above: Order Comment: Speci men Type: BLOOD SPECIMENOrdering Facility: [facility] Address: [address] [place] [address] Performed By: #### 7 18-7 ####[facility]ATORYCLIA [id number] [place] [address] [place] Hemoglobin (Bld) [Mass/Vol] 7.9 g/dL Low 13.0-17.0 [facility] Comment on above: Order Comment: Speci men Type: BLOOD SPECIMENOrdering Facility: [facility] Address: [address] [place] [address] Performed By: #### 7 18-7 ####[facility]ATORYCLIA [id number] [place] [address] [place] Magnesium SerPl-ncon 04-21 Magnesium [Mass/Vol] 1.6 mg/dL Low 1.7-2.3 [facility] Comment on above: Order Comment: Speci men Type: BLOOD SPECIMENOrdering Facility: [facility] Address: [address] [place] [address] Performed By: #### 1 9123-9, K1 ####[facility]ATORYCLIA [id number] [place] [address] [place] Magnesium [Mass/Vol] 1.8 mg/dL Normal 1.7-2.3 [facility] Comment on above: Order Comment: Speci men Type: BLOOD SPECIMENOrdering Facility: [facility] Address: [address] [place] [address] Performed By: #### 2 4323-8, 2777-1, 84672-3 ####[facility]ATORYCLIA [id number] [place] [id number] [place] POTASSIUMon 04-21-2025 Potassium [Moles/Vol] 3.3 mmol/L Low 3.7-5.1 [facility] Comment on above: Order Comment: Speci men Type: BLOOD SPECIMENOrdering Facility: [facility] Address: [address] [place] [address] Performed By: #### 1 9123-9, K1 ####[facility]ATORYCLIA [id number] [place] [address] [place] Phosphate SerPl-mCncon 04-21 Phosphate [Mass/Vol] 3.6 mg/dL Normal 2.7-4.8 [facility] Comment on above: Order Comment: Speci men Type: BLOOD SPECIMENOrdering Facility: [facility] Address: [address] [place] [address] Performed By: #### 2 4323-8, 2777-1, ####[facility]ATORYCLIA [id number] [place] [address] [place] THERAPY NTon 04-21-2025 THERAPY NT Normal [facility] XR ABDOMEN 1V SUPINEon 04-21 XR ABDOMEN 1V SUPINE Normal [facility] XR CHEST 1V FRONTALon 2024 XR CHEST 1V FRONTAL Normal [facility] CASE MANAGEMon 04-20-2025 CASE MANAGEM Normal [facility] CASE MANAGEM Normal [facility] CBC panel Auto (Bld)on 04-20 Erythrocyte distribution width (RBC) [Ratio] 15.1 % High 11.5-15.0 [facility] Comment on above: Order Comment: Speci men Type: BLOOD SPECIMENOrdering Facility: [facility] Address: [address] [place] [address] Performed By: #### 5 8410-2 ####[facility] LABORATORYCLIA [id number] [address] [place] [facility] Hemoglobin (Bld) [Mass/Vol] 8.9 g/dL Low 13.0-17.0 [facility] Comment on above: Order Comment: Speci men Type: BLOOD SPECIMENOrdering Facility: [facility] Address: [address] [place] [address] Performed By: #### 5 8410-2 ####[facility] LABORATORYCLIA [id number] [address] [place] MCH (RBC) [Entitic mass] 27.3 pg Normal 26.0-34.0 [facility] Comment on above: Order Comment: Speci men Type: BLOOD SPECIMENOrdering Facility: [facility] Address: [address] [place] [address] Performed By: #### 5 8410-2 ####[facility] LABORATORYCLIA [id number] [address] [place] MCHC (RBC) [Mass/Vol] 30.9 g/dL Normal 30.5-36.0 [facility] Comment on above: Order Comment: Speci men Type: BLOOD SPECIMENOrdering Facility: [facility] Address: [address] [place] [address] Performed By: #### 5 8410-2 ####[facility] LABORATORYCLIA [id number] [address] [place] MCV (RBC) [Entitic vol] 88.3 fL Normal 80.0-100.0 [facility] Comment on above: Order Comment: Speci men Type: BLOOD SPECIMENOrdering Facility: [facility] Address: [address] [place] [address] Performed By: #### 5 8410-2 ####[facility] LABORATORYCLIA [id number] [address] [place] Nucleated RBC (Bld) [#/Vol] 10*3/uL Normal <0.01 [facility] Comment on above: Order Comment: Speci men Type: BLOOD SPECIMENOrdering Facility: [facility] Address: [address] [place] [address] Performed By: #### 5 8410-2 ####[facility] LABORATORYCLIA [id number] [address] [place] Platelet mean volume (Bld) [Entitic vol] 10.8 fL Normal 9.0-12.7 [facility] Comment on above: Order Comment: Speci men Type: BLOOD SPECIMENOrdering Facility: [facility] Address: [address] [place] [address] Performed By: #### 5 8410-2 ####[facility] LABORATORYCLIA [id number] [address] [place] Platelets (Bld) [#/Vol] 402 10*3/uL High 150-400 [facility] Comment on above: Order Comment: Speci men Type: BLOOD SPECIMENOrdering Facility: [facility] Address: [address] [place] [address] Performed By: #### 5 8410-2 ####[facility] LABORATORYCLIA [id number] [address] [place] RBC (Bld) [#/Vol] 3.26 10*6/uL Low 4.20-6.00 [facility] Comment on above: Order Comment: Speci men Type: BLOOD SPECIMENOrdering Facility: [facility] Address: [address] [place] [address] Performed By: #### 5 8410-2 ####[facility] LABORATORYCLIA [id number] [address] [place] WBC (Bld) [#/Vol] 11.96 10*3/uL High 3.70-11.00 [facility] Comment on above: Order Comment: Speci men Type: BLOOD SPECIMENOrdering Facility: [facility] Address: [facility] [place] [address] Performed By: #### 5 8410-2 ####[facility] INDIANACLIA [id number] [address] [place] CYSTATIN Con 04-20-2025 Cystatin C [Mass/Vol] 1.60 mg/L High 0.61-0.95 [facility] Comment on above: Order Comment: Speci men Type: BLOOD SPECIMENOrdering Facility: [facility] Address: [address] [place] [address] Performed By: #### C YSTC ####[facility] LABCLIA [id number] [address] [place] CYSTATIN C EGFR 40 mL/min/1.73m??? Low >=60 [facility] Comment on above: Order Comment: Speci men Type: BLOOD SPECIMENOrdering Facility: [facility] Address: [address] [place] [address] Result Comment: Mary Kay mated Glomerular Filtration [...] actual GFR. Performed By: #### C YSTC ####[facility] LABCLIA [id number] [place] [address] [place] Comprehensive metabolic 2000 panelon 04-20-2025 Albumin [Mass/Vol] 2.9 g/dL Low 3.9-4.9 [facility] Comment on above: Order Comment: Speci men Type: BLOOD SPECIMENOrdering Facility: [facility] Address: [address] [place] [address] Performed By: #### 2 777-1, 62610-9, 73770-7 ####[facility] LABORATORYCLIA [id number] [place] [address] [place] ALP [Catalytic activity/Vol] 197 U/L High 38-113 [facility] Comment on above: Order Comment: Speci men Type: BLOOD SPECIMENOrdering Facility: [facility] Address: [address] [place] [address] Performed By: #### 2 777-1, , ####[facility] LABORATORYCLIA [id number] [place] [address] [place] ALT With P-5'-P [Catalytic activity/Vol] 49 U/L Normal 10-54 [facility] Comment on above: Order Comment: Speci men Type: BLOOD SPECIMENOrdering Facility: [facility] Address: [address] [place] [address] Performed By: #### 2 777-1, , ####[facility]ORATORYCLIA [id number] [address] [place] Anion gap [Moles/Vol] 13 mmol/L Normal 8-15 [facility] Comment on above: Order Comment: Speci men Type: BLOOD SPECIMENOrdering Facility: [facility] Address: [address] [place] [address] Performed By: #### 2 777-1, , ####[facility] LABORATORYCLIA [id number] [place] [address] [place] AST With P-5'-P [Catalytic activity/Vol] 59 U/L High 14-40 [facility] Comment on above: Order Comment: Speci men Type: BLOOD SPECIMENOrdering Facility: [facility] Address: [address] [place] [address] Performed By: #### 2 777-1, , ####[facility]ORATORYCLIA [id number] [place] [address] [place] Bilirubin [Mass/Vol] 0.4 mg/dL Normal 0.2-1.3 [facility] Comment on above: Order Comment: Speci men Type: BLOOD SPECIMENOrdering Facility: [facility] Address: [address] [place] [address] Performed By: #### 2 777-1, , ####[facility] LABORATORYCLIA [id number] [place] [address] [place] Calcium [Mass/Vol] 8.6 mg/dL Normal 8.5-10.2 [facility] Comment on above: Order Comment: Speci men Type: BLOOD SPECIMENOrdering Facility: [facility] Address: [address] [place] [address] Performed By: #### 2 777-1, , ####[facility] LABORATORYCLIA [id number] [place] [address] [place] Chloride [Moles/Vol] 104 mmol/L Normal 98-107 [facility] Comment on above: Order Comment: Speci men Type: BLOOD SPECIMENOrdering Facility: [facility] Address: [address] [place] [address] Performed By: #### 2 777-1, , ####[facility] LABORATORYCLIA [id number] [place] [address] [place] CO2 [Moles/Vol] 22 mmol/L Normal 22-30 [facility] Comment on above: Order Comment: Speci men Type: BLOOD SPECIMENOrdering Facility: [facility] Address: [address] [place] [address] Performed By: #### 2 777-1, , ####[facility] LABORATORYCLIA [id number] [place] [address] [place] Creatinine [Mass/Vol] 0.99 mg/dL Normal 0.73-1.22 [facility] Comment on above: Order Comment: Speci men Type: BLOOD SPECIMENOrdering Facility: [facility] Address: [address] [place] [address] Performed By: #### 2 777-1, , ####[facility] INDIANACLIA [id number] [place] [address] [place] eGFRcr SerPlBld CKD-EPI 2020 80 mL/min/1.73m??? Normal >=60 [facility] Comment on above: Order Comment: Jose Cruz johnson Type: BLOOD SPECIMENOrdering Facility: [facility] Address: [address] [place] [address] Result Comment: Mary Kay mated Glomerular Filtration [...] actual GFR. Performed By: #### 2 777-1, 08911-6, ####[facility]PITALIA [id number] [place] [id number] [place] Glucose [Mass/Vol] 210 mg/dL High 74-99 [facility] Comment on above: Order Comment: Jose Cruz alex Type: BLOOD SPECIMENOrdering Facility: [facility] Address: [address] [place] [address] Result Comment: The [place] Diabetes Association (ADA) provides guidance for cutoff [...] Standards of Medical Care in Diabetes 2016, [place] Diabetes Association. Diabetes Care. 2016.39(Suppl 1). Performed By: #### 2 777-1, 73809-1, ####[facility]ORATORYCLIA [id number] [place] [address] [place] Potassium [Moles/Vol] 3.8 mmol/L Normal 3.7-5.1 [facility] Comment on above: Order Comment: Speci men Type: BLOOD SPECIMENOrdering Facility: [facility] Address: [address] [place] [address] Performed By: #### 2 777-1, , ####[facility]ORATORYCLIA [id number] [place] [address] [place] Protein [Mass/Vol] 6.1 g/dL Low 6.3-8.0 [facility] Comment on above: Order Comment: Speci men Type: BLOOD SPECIMENOrdering Facility: [facility] Address: [address] [place] [address] Performed By: #### 2 777-1, , ####[facility]ORATORYCLIA [id number] [address] [place] Sodium [Moles/Vol] 139 mmol/L Normal 136-144 [facility] Comment on above: Order Comment: Speci men Type: BLOOD SPECIMENOrdering Facility: [facility] Address: [address] [place] [address] Performed By: #### 2 777-1, , ####[facility]ORATORYCLIA [id number] [place] [address] [place] Urea nitrogen [Mass/Vol] 25 mg/dL High 9-24 [facility] Comment on above: Order Comment: Speci men Type: BLOOD SPECIMENOrdering Facility: [facility] Address: [address] [place] [address] Performed By: #### 2 777-1, , ####[facility] LABORATORYCLIA [id number] [place] [address] [place] Gas + CO Pnl BldVon 04-20-20 25 Hematocrit (Bld) [Volume fraction] 28.8 % Low 39.0-51.0 [facility] Comment on above: Order Comment: Speci men Type: VENOUS BLOOD SPECIMENOrdering Facility: [facility] Address: [address] [place] [address] Performed By: #### 2 4344-4 ####[facility]ORATORYCLIA [id number] [address] Order Comment: Speci men Type: BLOOD SPECIMENOrdering Facility: [facility] Address: [address] [place] [address] Performed By: #### 5 8410-2 ####[facility]ORATORYCLIA [id number] [address] Gas and Carbon monoxide pane l (BldV)on 04-20-2025 Base excess Calc (BldV) [Moles/Vol] 1 mmol/L Normal 0-2 [facility] Comment on above: Order Comment: Speci men Type: VENOUS BLOOD SPECIMENOrdering Facility: [facility] Address: [address] [place] [address] Performed By: #### 2 4344-4 ####[facility]ORATORYCLIA [id number] [address] Body temperature 98.6 [degF] Normal [facility] Comment on above: Order Comment: Speci men Type: VENOUS BLOOD SPECIMENOrdering Facility: [facility] Address: [address] [place] [address] Performed By: #### 2 4344-4 ####[facility]ORATORYCLIA [id number] [address] Calcium.ionized (BldV) [Mass/Vol] 1.09 mmol/L Normal 1.08-1.30 [facility] Comment on above: Order Comment: Speci men Type: VENOUS BLOOD SPECIMENOrdering Facility: [facility] Address: [address] [place] [address] Performed By: #### 2 4344-4 ####[facility]ORATORYCLIA [id number] [address] Calcium.ionized adjusted to pH 7.4 (BldA) [Moles/Vol] 1.12 mmol/L Normal 1.08-1.30 [facility] Comment on above: Order Comment: Speci men Type: VENOUS BLOOD SPECIMENOrdering Facility: [facility] Address: [address] [place] [address] Performed By: #### 2 4344-4 ####[facility]ORATORYCLIA [id number] [address] [place] Carboxyhemoglobin (BldV) [Mass fraction] 2.4 % High 0.0-2.0 [facility] Comment on above: Order Comment: Speci men Type: VENOUS BLOOD SPECIMENOrdering Facility: [facility] Address: [address] [place] [address] Result Comment: Carb oxyhemoglobin Reference Range for Smokers: 2.0-8.0% Performed By: #### 2 4344-4 ####[facility]ORATORYCLIA [id number] [place] [address] [place] Chloride [Moles/Vol] 109 mmol/L High 97-105 [facility] Comment on above: Order Comment: Speci men Type: VENOUS BLOOD SPECIMENOrdering Facility: [facility] Address: [address] [place] [address] Performed By: #### 2 4344-4 ####[facility]ORATORYCLIA [id number] [address] [place] CO2 (BldV) [Partial pressure] 36 mm[Hg] Low 42-55 [facility] Comment on above: Order Comment: Speci men Type: VENOUS BLOOD SPECIMENOrdering Facility: [facility] Address: [address] [place] [address] Performed By: #### 2 4344-4 ####[facility]ORATORYCLIA [id number] [place] [address] [place] FIO2 35 % Normal [facility] Comment on above: Order Comment: Speci men Type: VENOUS BLOOD SPECIMENOrdering Facility: [facility] Address: [address] [place] [address] Performed By: #### 2 4344-4 ####[facility] LABORATORYCLIA [id number] [place] [address] [place] Glucose [Mass/Vol] 217 mg/dL High 60-105 [facility] Comment on above: Order Comment: Speci men Type: VENOUS BLOOD SPECIMENOrdering Facility: [facility] Address: [address] [place] [address] Performed By: #### 2 4344-4 ####[facility] LABORATORYCLIA [id number] [place] [address] [place] HCO3 (Bld) [Moles/Vol] 24 mmol/L Normal 24-28 [facility] Comment on above: Order Comment: Speci men Type: VENOUS BLOOD SPECIMENOrdering Facility: [facility] Address: [address] [place] [address] Performed By: #### 2 4344-4 ####[facility]ORATORYCLIA [id number] [place] [address] [place] Hemoglobin (Bld) [Mass/Vol] 9.3 g/dL Low 13.0-17.0 [facility] Comment on above: Order Comment: Speci men Type: VENOUS BLOOD SPECIMENOrdering Facility: [facility] Address: [address] [place] [address] Performed By: #### 2 4344-4 ####[facility]ORATORYCLIA [id number] [address] [place] INHALED TIDAL VOLUME (ML) 450 Normal [facility] Comment on above: Order Comment: Speci men Type: VENOUS BLOOD SPECIMENOrdering Facility: [facility] Address: [address] [place] [address] Performed By: #### 2 4344-4 ####[facility]ORATORYCLIA [id number] [address] [place] Lactate [Moles/Vol] 1.0 mmol/L Normal 0.5-2.2 [facility] Comment on above: Order Comment: Speci men Type: VENOUS BLOOD SPECIMENOrdering Facility: [facility] Address: [address] [place] [address] Performed By: #### 2 4344-4 ####[facility] LABORATORYCLIA [id number] [place] [address] [place] Methemoglobin (Bld) [Mass fraction] 1.2 % Normal 0.0-1.5 [facility] Comment on above: Order Comment: Speci men Type: VENOUS BLOOD SPECIMENOrdering Facility: [facility] Address: [address] [place] [address] Performed By: #### 2 4344-4 ####[facility] LABORATORYCLIA [id number] [address] [place] O2 THERAPY VENT=Ventilator Normal [facility] Comment on above: Order Comment: Speci men Type: VENOUS BLOOD SPECIMENOrdering Facility: [facility] Address: [address] [place] [address] Performed By: #### 2 4344-4 ####[facility] LABORATORYCLIA [id number] [address] [place] Oxygen (BldV) [Partial pressure] 111 mm[Hg] High 35-45 [facility] Comment on above: Order Comment: Speci men Type: VENOUS BLOOD SPECIMENOrdering Facility: [facility] Address: [address] [place] [address] Performed By: #### 2 4344-4 ####[facility] LABORATORYCLIA [id number] [address] [place] Oxygen saturation in Venous blood 98 % High 60-85 [facility] Comment on above: Order Comment: Speci men Type: VENOUS BLOOD SPECIMENOrdering Facility: [facility] Address: [address] [place] [address] Performed By: #### 2 4344-4 ####[facility] LABORATORYCLIA [id number] [address] [place] Oxyhemoglobin (BldV) [Mass fraction] 95 % High 60-85 [facility] Comment on above: Order Comment: Speci men Type: VENOUS BLOOD SPECIMENOrdering Facility: [facility] Address: [address] [place] [address] Performed By: #### 2 4344-4 ####[facility] LABORATORYCLIA [id number] [address] PEEP/CPAP 54 cmH2O Normal [facility] Comment on above: Order Comment: Speci men Type: VENOUS BLOOD SPECIMENOrdering Facility: [facility] Address: [address] [place] [address] Performed By: #### 2 4344-4 ####[facility] LABORATORYCLIA [id number] [address] [place] pH (BldV) 7.44 [pH] High 7.32-7.42 [facility] Comment on above: Order Comment: Speci men Type: VENOUS BLOOD SPECIMENOrdering Facility: [facility] Address: [address] [place] [address] Performed By: #### 2 4344-4 ####[facility]ORATORYCLIA [id number] [address] [place] Potassium [Moles/Vol] 4.4 mmol/L Normal 3.5-5.0 [facility] Comment on above: Order Comment: Speci men Type: VENOUS BLOOD SPECIMENOrdering Facility: [facility] Address: [address] [place] [address] Performed By: #### 2 4344-4 ####[facility] LABORATORYCLIA [id number] [address] SET VENTILATOR RESPIRATORY RATE (BPM) 20 BPM Normal [facility] Comment on above: Order Comment: Speci men Type: VENOUS BLOOD SPECIMENOrdering Facility: [facility] Address: [address] [place] [address] Performed By: #### 2 4344-4 ####[facility] LABORATORYCLIA [id number] [address] [place] Sodium [Moles/Vol] 140 mmol/L Normal 136-144 [facility] Comment on above: Order Comment: Speci men Type: VENOUS BLOOD SPECIMENOrdering Facility: [facility] Address: [address] [place] [address] Performed By: #### 2 4344-4 ####[facility]ORATORYCLIA [id number] [address] [place] Hgb Bld-mCncon 04-20-2025 Hemoglobin (Bld) [Mass/Vol] 7.9 g/dL Low 13.0-17.0 [facility] Comment on above: Order Comment: Speci men Type: BLOOD SPECIMENOrdering Facility: [facility] Address: [address] [place] [address] Performed By: #### 7 18-7 ####[facility]ORATORYCLIA [id number] [place] [address] [place] Hemoglobin (Bld) [Mass/Vol] 7.6 g/dL Low 13.0-17.0 [facility] Comment on above: Order Comment: Speci men Type: BLOOD SPECIMENOrdering Facility: [facility] Address: [address] [place] [address] Performed By: #### 7 18-7 ####[facility]ORATORYCLIA [id number] [place] [address] [place] Magnesium SerPl-ncon 04-20 Magnesium [Mass/Vol] 1.8 mg/dL Normal 1.7-2.3 [facility] Comment on above: Order Comment: Speci men Type: BLOOD SPECIMENOrdering Facility: [facility] Address: [address] [place] [address] Performed By: #### 2 777-1, 50876-3, 05995-4 ####[facility]ORATORYCLIA [id number] [place] [address] [place] NUTRITIONon 04-20-2025 NUTRITION Normal [facility] Phosphate SerPl-mCncon 04-20 Phosphate [Mass/Vol] 3.1 mg/dL Normal 2.7-4.8 [facility] Comment on above: Order Comment: Speci men Type: BLOOD SPECIMENOrdering Facility: [facility] Address: [address] [place] [address] Performed By: #### 2 777-1, 03902-3, 78809-6 ####[facility] LABORATORYCLIA [id number] [place] [address] [place] Albumin SerPl-mCncon 025 Albumin [Mass/Vol] 2.7 g/dL Low 3.9-4.9 [facility] Comment on above: Order Comment: Speci men Type: BLOOD SPECIMENOrdering Facility: [facility] Address: [address] [place] [address] Performed By: #### 2 777-1, 1751-7, 36470-6 ####[facility]ORATORYCLIA [id number] [address] [place] Basic metabolic 2000 panelon 04-19-2025 Anion gap [Moles/Vol] 11 mmol/L Normal 8-15 [facility] Comment on above: Order Comment: Speci men Type: BLOOD SPECIMENOrdering Facility: [facility] Address: [address] [place] [address] Performed By: #### 2 4321-2 ####[facility]ORATORYCLIA [id number] [place] [address] [place] Calcium [Mass/Vol] 8.0 mg/dL Low 8.5-10.2 [facility] Comment on above: Order Comment: Speci men Type: BLOOD SPECIMENOrdering Facility: [facility] Address: [address] [place] [address] Performed By: #### 2 4321-2 ####[facility] LABORATORYCLIA [id number] [place] [address] [place] Chloride [Moles/Vol] 108 mmol/L High 98-107 [facility] Comment on above: Order Comment: Speci men Type: BLOOD SPECIMENOrdering Facility: [facility] Address: [address] [place] [address] Performed By: #### 2 4321-2 ####[facility]ORATORYCLIA [id number] [place] [address] [place] CO2 [Moles/Vol] 22 mmol/L Normal 22-30 [facility] Comment on above: Order Comment: Speci men Type: BLOOD SPECIMENOrdering Facility: [facility] Address: [address] [place] [address] Performed By: #### 2 4321-2 ####[facility] INDIANACLIA [id number] [place] [id number] [place] Creatinine [Mass/Vol] 0.98 mg/dL Normal 0.73-1.22 [facility] Comment on above: Order Comment: Speci men Type: BLOOD SPECIMENOrdering Facility: [facility] Address: [address] [place] [address] Performed By: #### 2 4321-2 ####[facility]ITALIA [id number] [address] [place] eGFRcr SerPlBld CKD-EPI 2020 81 mL/min/1.73m??? Normal >=60 [facility] Comment on above: Order Comment: Speci men Type: BLOOD SPECIMENOrdering Facility: [facility] Address: [address] [place] [address] Result Comment: Mary Kay mated Glomerular Filtration [...] actual GFR. Performed By: #### 2 4321-2 ####[facility] LABORATORYIA [id number] [address] [place] Glucose [Mass/Vol] 198 mg/dL High 74-99 [facility] Comment on above: Order Comment: Jose Cruz johnson Type: BLOOD SPECIMENOrdering Facility: [facility] Address: [address] [place] [address] Result Comment: The [place] Diabetes Association (ADA) provides guidance for cutoff [...] Standards of Medical Care in Diabetes 2016, [place] Diabetes Association. Diabetes Care. 2016.39(Suppl 1). Performed By: #### 2 4321-2 ####[facility]ORATORYCLIA [id number] [place] [address] [place] Potassium [Moles/Vol] 3.6 mmol/L Low 3.7-5.1 [facility] Comment on above: Order Comment: Jose Cruz men Type: BLOOD SPECIMENOrdering Facility: [facility] Address: [address] [place] [address] Performed By: #### 2 4321-2 ####[facility]ATORYCLIA [id number] [address] [place] Sodium [Moles/Vol] 141 mmol/L Normal 136-144 [facility] Comment on above: Order Comment: Dahianai alex Type: BLOOD SPECIMENOrdering Facility: [facility] Address: [address] [place] [address] Performed By: #### 2 4321-2 ####[facility] LABORATORYCLIA [id number] [place] [address] [place] Urea nitrogen [Mass/Vol] 26 mg/dL High 9-24 [facility] Comment on above: Order Comment: Speci men Type: BLOOD SPECIMENOrdering Facility: [facility] Address: [address] [place] [address] Performed By: #### 2 4321-2 ####[facility] LABORATORYCLIA [id number] [address] [place] Anion gap [Moles/Vol] 13 mmol/L Normal 8-15 [facility] Comment on above: Order Comment: Speci men Type: BLOOD SPECIMENOrdering Facility: FOR[facility] [facility] Address: [address] [facility] [id number] Performed By: #### 2 777-1, 1751-03, ####[facility]ORATORYCLIA [id number] [place] [address] [place] Calcium [Mass/Vol] 7.9 mg/dL Low 8.5-10.2 [facility] Comment on above: Order Comment: Speci men Type: BLOOD SPECIMENOrdering Facility: [facility] Address: [address] [place] [address] Performed By: #### 2 777-1, 1751-03, ####[facility]ORATORYCLIA [id number] [place] [address] [place] Chloride [Moles/Vol] 109 mmol/L High 98-107 [facility] Comment on above: Order Comment: Speci men Type: BLOOD SPECIMENOrdering Facility: [facility] Address: [address] [place] [address] Performed By: #### 2 777-1, 1751-03, ####[facility]ORATORYCLIA [id number] [place] [address] [place] CO2 [Moles/Vol] 21 mmol/L Low 22-30 [facility] Comment on above: Order Comment: Speci men Type: BLOOD SPECIMENOrdering Facility: [facility] Address: [facility] [place] [place] [address] Performed By: #### 2 777-1, 1751-03, ####[facility]ATORYCLIA [id number] [place] [address] [place] Creatinine [Mass/Vol] 1.04 mg/dL Normal 0.73-1.22 [facility] Comment on above: Order Comment: Speci men Type: BLOOD SPECIMENOrdering Facility: [facility] Address: [address] [place] [address] [place] [address] Performed By: #### 2 777-1, 1751-03, 46944-0 ####[facility]ATORYCLIA [id number] [place] [address] [place] eGFRcr SerPlBld CKD-EPI 2020 76 mL/min/1.73m??? Normal >=60 [facility] Comment on above: Order Comment: Jose Cruz johnson Type: BLOOD SPECIMENOrdering Facility: [facility] Address: [address] [place] [address] Result Comment: Mary Kay mated Glomerular Filtration [...] GFR. Performed By: #### 2 777-1, 175-7, 43598-5 ####[facility]ATORYCLIA [id number] [place] [address] [place] Glucose [Mass/Vol] 164 mg/dL High 74-99 [facility] Comment on above: Order Comment: Jose Cruz johnson Type: BLOOD SPECIMENOrdering Facility: [facility] Address: [address] [place] [address] Result Comment: The [place] Diabetes Association (ADA) provides guidance for cutoff [...] Standards of Medical Care in Diabetes 2016, [place] Diabetes Association. Diabetes Care. 2016.39(Suppl 1). Performed By: #### 2 777-1, 1751-7, 81701-4 ####[facility]ATORYCLIA [id number] [place] [id number] [place] Potassium [Moles/Vol] 3.6 mmol/L Low 3.7-5.1 [facility] Comment on above: Order Comment: Speci men Type: BLOOD SPECIMENOrdering Facility: [facility] Address: [address] [place] [address] Performed By: #### 2 777-1, 1751-03, 88898-2 ####[facility]ATORYCLIA [id number] [place], [place] [id number] [place] [address] [place] Sodium [Moles/Vol] 143 mmol/L Normal 136-144 [facility] Comment on above: Order Comment: Speci men Type: BLOOD SPECIMENOrdering Facility: [facility] Address: [address] [place] [address] Performed By: #### 2 777-1, 1751-03, ####[facility]ATORYCLIA [id number] [address] [place] Urea nitrogen [Mass/Vol] 25 mg/dL High 9-24 [facility] Comment on above: Order Comment: Speci men Type: BLOOD SPECIMENOrdering Facility: [facility] Address: [address] [place] [address] Performed By: #### 2 777-1, 1751-03, ####[facility]ATORYCLIA [id number] [address] [place] CASE MANAGEMon 04-19-2025 CASE MANAGEM Normal [facility] CBC panel Auto (Bld)on 04-19 Erythrocyte distribution width (RBC) [Ratio] 14.9 % Normal 11.5-15.0 [facility] Comment on above: Order Comment: Speci men Type: BLOOD SPECIMENOrdering Facility: [facility] Address: [address] [place] [address] Performed By: #### 5 8410-2 ####[facility]ATORYCLIA [id number] [address] [place] Hematocrit (Bld) [Volume fraction] 26.1 % Low 39.0-51.0 [facility] Comment on above: Order Comment: Speci men Type: BLOOD SPECIMENOrdering Facility: [facility] Address: [address] [place] [address] Performed By: #### 5 8410-2 ####[facility]ATORYCLIA [id number] [address] STATES [facility] Hemoglobin (Bld) [Mass/Vol] 8.3 g/dL Low 13.0-17.0 [facility] Comment on above: Order Comment: Speci men Type: BLOOD SPECIMENOrdering Facility: [facility] Address: [address] [place] [address] Performed By: #### 5 8410-2 ####[facility]ATORYCLIA [id number] [address] MCH (RBC) [Entitic mass] 27.8 pg Normal 26.0-34.0 [facility] Comment on above: Order Comment: Speci men Type: BLOOD SPECIMENOrdering Facility: [facility] Address: [address] [place] [address] Performed By: #### 5 8410-2 ####[facility]ATORYCLIA [id number] [address] STATES [facility] MCHC (RBC) [Mass/Vol] 31.8 g/dL Normal 30.5-36.0 [facility] Comment on above: Order Comment: Speci men Type: BLOOD SPECIMENOrdering Facility: [facility] Address: [address] [place] [address] Performed By: #### 5 8410-2 ####[facility]ATORYCLIA [id number] [address] STATES [facility] MCV (RBC) [Entitic vol] 87.3 fL Normal 80.0-100.0 [facility] Comment on above: Order Comment: Speci men Type: BLOOD SPECIMENOrdering Facility: [facility] Address: [address] [place] [address] Performed By: #### 5 8410-2 ####[facility]ATORYCLIA [id number] [address] [place] Nucleated RBC (Bld) [#/Vol] 10*3/uL Normal <0.01 [facility] Comment on above: Order Comment: Speci men Type: BLOOD SPECIMENOrdering Facility: [facility] Address: [address] [place] [address] Performed By: #### 5 8410-2 ####[facility]ATORYCLIA [id number] [address] STATES OF [facility] Platelet mean volume (Bld) [Entitic vol] 10.4 fL Normal 9.0-12.7 [facility] Comment on above: Order Comment: Speci men Type: BLOOD SPECIMENOrdering Facility: [facility] Address: [address] [place] [address] Performed By: #### 5 8410-2 ####[facility]ORYCLIA [id number] [address] [place] Platelets (Bld) [#/Vol] 317 10*3/uL Normal 150-400 [facility] Comment on above: Order Comment: Speci men Type: BLOOD SPECIMENOrdering Facility: [facility] Address: [address] [place] [address] Performed By: #### 5 8410-2 ####[facility]ATORYCLIA [id number] [address] [place] RBC (Bld) [#/Vol] 2.99 10*6/uL Low 4.20-6.00 [facility] Comment on above: Order Comment: Speci men Type: BLOOD SPECIMENOrdering Facility: [facility] Address: [address] [place] [address] Performed By: #### 5 8410-2 ####[facility]ORYCLIA [id number] [address] [place] WBC (Bld) [#/Vol] 12.26 10*3/uL High 3.70-11.00 [facility] Comment on above: Order Comment: Speci men Type: BLOOD SPECIMENOrdering Facility: [facility] Address: [address] [place] [address] Performed By: #### 5 8410-2 ####[facility]ATORYCLIA [id number] [address] Gas and Carbon monoxide pane l (BldV)on 04-19-2025 BASE DEFICIT, VENOUS -1 mmol/L Normal -2-0 [facility] Comment on above: Order Comment: Speci men Type: VENOUS BLOOD SPECIMENOrdering Facility: [facility] Address: [address] [place] [address] Performed By: #### 2 4344-4 ####[facility]ATORYCLIA [id number] [address] Body temperature 98.78 [degF] Normal [facility] Comment on above: Order Comment: Speci men Type: VENOUS BLOOD SPECIMENOrdering Facility: [facility] Address: [address] [place] [address] Performed By: #### 2 4344-4 ####[facility]ATORYCLIA [id number] [address] Calcium.ionized (BldV) [Mass/Vol] 1.20 mmol/L Normal 1.08-1.30 [facility] Comment on above: Order Comment: Speci men Type: VENOUS BLOOD SPECIMENOrdering Facility: [facility] Address: [address] [place] [address] Performed By: #### 2 4344-4 ####[facility]ATORYCLIA [id number] [address] Calcium.ionized adjusted to pH 7.4 (BldA) [Moles/Vol] 1.23 mmol/L Normal 1.08-1.30 [facility] Comment on above: Order Comment: Speci men Type: VENOUS BLOOD SPECIMENOrdering Facility: [facility] Address: [address] [place] [address] Performed By: #### 2 4344-4 ####[facility]ATORYCLIA [id number] [address] Carboxyhemoglobin (BldV) [Mass fraction] 1.5 % Normal 0.0-2.0 [facility] Comment on above: Order Comment: Speci men Type: VENOUS BLOOD SPECIMENOrdering Facility: [facility] Address: [address] [place] [address] Result Comment: Carb oxyhemoglobin Reference Range for Smokers: 2.0-8.0% Performed By: #### 2 4344-4 ####[facility]ATORYCLIA [id number] [address] [place] Chloride [Moles/Vol] 111 mmol/L High 97-105 [facility] Comment on above: Order Comment: Speci men Type: VENOUS BLOOD SPECIMENOrdering Facility: [facility] Address: [address] [place] [address] Performed By: #### 2 4344-4 ####[facility] LABORATORYCLIA [id number] [address] OF [place] CO2 (BldV) [Partial pressure] 32 mm[Hg] Low 42-55 [facility] Comment on above: Order Comment: Speci men Type: VENOUS BLOOD SPECIMENOrdering Facility: [facility] Address: [address] [place] [address] Performed By: #### 2 4344-4 ####[facility]ORYCLIA [id number] [address] OF [place] CO2 adjusted to patient's actual temperature (BldV) [Partial pressure] 33 mmHg Low 42-55 [facility] Comment on above: Order Comment: Speci men Type: VENOUS BLOOD SPECIMENOrdering Facility: [facility] Address: [address] [place] [address] Performed By: #### 2 4344-4 ####[facility]ATORYCLIA [id number] [address] [place] FIO2 35 % Normal [facility] Comment on above: Order Comment: Speci men Type: VENOUS BLOOD SPECIMENOrdering Facility: [facility] Address: [address] [place] [address] Performed By: #### 2 4344-4 ####[facility]ATORYCLIA [id number] [address] [place] Glucose [Mass/Vol] 188 mg/dL High 60-105 [facility] Comment on above: Order Comment: Speci men Type: VENOUS BLOOD SPECIMENOrdering Facility: [facility] Address: [address] [place] [address] Performed By: #### 2 4344-4 ####[facility]ATORYCLIA [id number] [place] [address] [place] HCO3 (Bld) [Moles/Vol] 22 mmol/L Low 24-28 [facility] Comment on above: Order Comment: Speci men Type: VENOUS BLOOD SPECIMENOrdering Facility: [facility] Address: [address] [place] [address] Performed By: #### 2 4344-4 ####[facility]ATORYCLIA [id number] [address] [place] Hematocrit (Bld) [Volume fraction] 25.7 % Low 39.0-51.0 [facility] Comment on above: Order Comment: Speci men Type: VENOUS BLOOD SPECIMENOrdering Facility: [facility] Address: [address] [place] [address] Performed By: #### 2 4344-4 ####[facility]ORYCLIA [id number] [address] [place] Hemoglobin (Bld) [Mass/Vol] 8.3 g/dL Low 13.0-17.0 [facility] Comment on above: Order Comment: Speci men Type: VENOUS BLOOD SPECIMENOrdering Facility: [facility] Address: [address] [place] [address] Performed By: #### 2 4344-4 ####[facility]ORYCLIA [id number] [address] [place] INHALED TIDAL VOLUME (ML) 450 Normal [facility] Comment on above: Order Comment: Speci men Type: VENOUS BLOOD SPECIMENOrdering Facility: [facility] Address: [address] [place] [address] Performed By: #### 2 4344-4 ####[facility]ATORYCLIA [id number] [address] [place] INVASIVE VENTILATOR MODE A/C PRVC or VC+ or APVcmv (PC-CMVa) Normal [facility] Comment on above: Order Comment: Speci men Type: VENOUS BLOOD SPECIMENOrdering Facility: [facility] Address: [address] [place] [address] Performed By: #### 2 4344-4 ####[facility]ORYCLIA [id number] [address] [place] Lactate [Moles/Vol] 0.8 mmol/L Normal 0.5-2.2 [facility] Comment on above: Order Comment: Speci men Type: VENOUS BLOOD SPECIMENOrdering Facility: [facility] Address: [address] [place] [address] Performed By: #### 2 4344-4 ####[facility]ORYCLIA [id number] [address] [place] Methemoglobin (Bld) [Mass fraction] 1.2 % Normal 0.0-1.5 [facility] Comment on above: Order Comment: Speci men Type: VENOUS BLOOD SPECIMENOrdering Facility: [facility] Address: [address] [place] [address] Performed By: #### 2 4344-4 ####[facility]ORYCLIA [id number] [address] [place] O2 THERAPY VENT=Ventilator Normal [facility] Comment on above: Order Comment: Speci men Type: VENOUS BLOOD SPECIMENOrdering Facility: [facility] Address: [address] [place] [address] Performed By: #### 2 4344-4 ####[facility]ORYCLIA [id number] [address] [place] Oxygen (BldV) [Partial pressure] 47 mm[Hg] High 35-45 [facility] Comment on above: Order Comment: Speci men Type: VENOUS BLOOD SPECIMENOrdering Facility: [facility] Address: [address] [place] [address] [place] [address] Performed By: #### 2 4344-4 ####[facility]ATORYCLIA [id number] [place] [address] [place] Oxygen adjusted to patient's actual temperature (BldV) [Partial pressure] 47 mmHg High 35-45 [facility] Comment on above: Order Comment: Speci men Type: VENOUS BLOOD SPECIMENOrdering Facility: [facility] Address: [address] [place] [address] Performed By: #### 2 4344-4 ####[facility]ORYCLIA [id number] [address] [place] Oxygen saturation in Venous blood 83 % Normal 60-85 [facility] Comment on above: Order Comment: Speci men Type: VENOUS BLOOD SPECIMENOrdering Facility: [facility] Address: [address] [place] [address] Performed By: #### 2 4344-4 ####[facility] LABORATORYCLIA [id number] [address] [place] Oxyhemoglobin (BldV) [Mass fraction] 81 % Normal 60-85 [facility] Comment on above: Order Comment: Speci men Type: VENOUS BLOOD SPECIMENOrdering Facility: [facility] Address: [address] [place] [address] Performed By: #### 2 4344-4 ####[facility]ATORYCLIA [id number] [place] [id number] [place] PEEP/CPAP 5 cmH2O Normal [facility] Comment on above: Order Comment: Speci men Type: VENOUS BLOOD SPECIMENOrdering Facility: [facility] Address: [address] [place] [address] Performed By: #### 2 4344-4 ####[facility]ORYCLIA [id number] [place] [id number] [place] pH (BldV) 7.44 [pH] High 7.32-7.42 [facility] Comment on above: Order Comment: Speci men Type: VENOUS BLOOD SPECIMENOrdering Facility: [facility] Address: [address] [place] [address] Performed By: #### 2 4344-4 ####[facility]ORYCLIA [id number] [address] pH adjusted to patient's actual temperature (BldV) 7.44 High 7.32-7.42 [facility] Comment on above: Order Comment: Speci men Type: VENOUS BLOOD SPECIMENOrdering Facility: [facility] Address: [address] [place] [address] Performed By: #### 2 4344-4 ####[facility] LABORATORYCLIA [id number] [address] [place] Potassium [Moles/Vol] 3.5 mmol/L Normal 3.5-5.0 [facility] Comment on above: Order Comment: Speci men Type: VENOUS BLOOD SPECIMENOrdering Facility: [facility] Address: [address] [place] [address] Performed By: #### 2 4344-4 ####[facility]ATORYCLIA [id number] [address] SET VENTILATOR RESPIRATORY RATE (BPM) 20 BPM Normal [facility] Comment on above: Order Comment: Speci men Type: VENOUS BLOOD SPECIMENOrdering Facility: [facility] Address: [address] [place] [address] Performed By: #### 2 4344-4 ####[facility]ORYCLIA [id number] [address] [place] Sodium [Moles/Vol] 144 mmol/L Normal 136-144 [facility] Comment on above: Order Comment: Speci men Type: VENOUS BLOOD SPECIMENOrdering Facility: [facility] Address: [address] [place] [address] Performed By: #### 2 4344-4 ####[facility]ORYCLIA [id number] [address] [place] Hgb Bld-mCncon 04-19-2025 Hemoglobin (Bld) [Mass/Vol] 7.8 g/dL Low 13.0-17.0 [facility] Comment on above: Order Comment: Speci men Type: BLOOD SPECIMENOrdering Facility: [facility] Address: [address] [place] [address] Performed By: #### 7 18-7 ####[facility]ORYCLIA [id number] [address] [place] Hemoglobin (Bld) [Mass/Vol] 7.8 g/dL Low 13.0-17.0 [facility] Comment on above: Order Comment: Speci men Type: BLOOD SPECIMENOrdering Facility: [facility] Address: [address] [place] [address] Performed By: #### 7 18-7 ####[facility]ORYCLIA [id number] [address] [place] Phosphate SerPl-[facility] 04-19 Phosphate [Mass/Vol] 2.8 mg/dL Normal 2.7-4.8 [facility] Comment on above: Order Comment: Speci men Type: BLOOD SPECIMENOrdering Facility: [facility] Address: [address] [place] [address] Performed By: #### 2 777-1, 1751-7, 36283-8 ####[facility]ORYCLIA [id number] [address] [place] THERAPY NTon 04-19-2025 THERAPY NT Normal [facility] Albumin [facility] 025 Albumin [Mass/Vol] 2.6 g/dL Low 3.9-4.9 [facility] Comment on above: Order Comment: Speci men Type: BLOOD SPECIMENOrdering Facility: [facility] Address: [address] [place] [address] Performed By: #### 1 751-7, 40188-3, 2777-1, 45200-2 ####[facility]ORYCLIA [id number] [place] [address] [place] Basic metabolic 2000 panelon 04-18-2025 Anion gap [Moles/Vol] 12 mmol/L Normal 8-15 [facility] Comment on above: Order Comment: Speci men Type: BLOOD SPECIMENOrdering Facility: [facility] Address: [address] [place] [address] Performed By: #### 1 751-7, , 2776-09, 30985-5 ####[facility]ORYCLIA [id number] [place] [id number] [place] Calcium [Mass/Vol] 7.9 mg/dL Low 8.5-10.2 [facility] Comment on above: Order Comment: Speci men Type: BLOOD SPECIMENOrdering Facility: [facility] Address: [address] [place] [address] Performed By: #### 1 751-7, , 2776-09, 27476-6 ####[facility]ORYCLIA [id number] [place] [address] [place] Chloride [Moles/Vol] 106 mmol/L Normal 98-107 [facility] Comment on above: Order Comment: Speci men Type: BLOOD SPECIMENOrdering Facility: [facility] Address: [address] [place] [address] Performed By: #### 1 751-7, , 2776-09, 62557-9 ####[facility]ORYCLIA [id number] [place] [address] [place] CO2 [Moles/Vol] 23 mmol/L Normal 22-30 [facility] Comment on above: Order Comment: Speci men Type: BLOOD SPECIMENOrdering Facility: [facility] Address: [address] [place] [address] Performed By: #### 1 751-7, , 2776-09, 96993-2 ####[facility]ORYCLIA [id number] [place] [address] [place] Creatinine [Mass/Vol] 1.07 mg/dL Normal 0.73-1.22 [facility] Comment on above: Order Comment: Speci men Type: BLOOD SPECIMENOrdering Facility: [facility] Address: [address] [place] [address] Performed By: #### 1 751-7, 99834-7, 2777-1, 33401-1 ####[facility] INDIANACLIA [id number] [place] [id number] [place] eGFRcr SerPlBld CKD-EPI 2020 73 mL/min/1.73m??? Normal >=60 [facility] Comment on above: Order Comment: Jose Cruz johnson Type: BLOOD SPECIMENOrdering Facility: [facility] Address: [address] [place] [address] Result Comment: Mary Kay mated Glomerular Filtration [...] actual GFR. Performed By: #### 1 751-7, 12261-3, 2777-1, 91856-3 ####[facility]ORYCLIA [id number] [place] [address] [place] Glucose [Mass/Vol] 196 mg/dL High 74-99 [facility] Comment on above: Order Comment: Jose Cruz johnson Type: BLOOD SPECIMENOrdering Facility: [facility] Address: [address] [place] [address] Result Comment: The [place] Diabetes Association (ADA) provides guidance for cutoff [...] Standards of Medical Care in Diabetes 2016, [place] Diabetes Association. Diabetes Care. 2016.39(Suppl 1). Performed By: #### 1 751-7, 35388-1, 2777-1, 64763-9 ####[facility]ATORYCLIA [id number] [place] [address] [place] Potassium [Moles/Vol] 3.2 mmol/L Low 3.7-5.1 [facility] Comment on above: Order Comment: Speci men Type: BLOOD SPECIMENOrdering Facility: [facility] Address: [address] [place] [address] Performed By: #### 1 751-7, 88604-8, 2777-1, 37242-3 ####[facility]ORYCLIA [id number] [place] [id number] [place] Sodium [Moles/Vol] 141 mmol/L Normal 136-144 [facility] Comment on above: Order Comment: Speci men Type: BLOOD SPECIMENOrdering Facility: [facility] Address: [address] [place] [address] Performed By: #### 1 751-7, 51988-0, 2777-, 53702-0 ####[facility]ATORYCLIA [id number] [address] [place] Urea nitrogen [Mass/Vol] 23 mg/dL Normal 9-24 [facility] Comment on above: Order Comment: Speci men Type: BLOOD SPECIMENOrdering Facility: [facility] Address: [address] [place] [address] Performed By: #### 1 751-7, 94090-6, 2777-, 96528-4 ####[facility]ORATORYCLIA [id number] [place] [address] [place] CASE MANAGEMon 04-18-2025 CASE MANAGEM Normal [facility] CBC panel Auto (Bld)on 04-18 Erythrocyte distribution width (RBC) [Ratio] 15.0 % Normal 11.5-15.0 [facility] Comment on above: Order Comment: Speci men Type: BLOOD SPECIMENOrdering Facility: [facility] Address: [address] [place] [address] Performed By: #### 5 8410-2 ####[facility] LABORATORYCLIA [id number] [address] Hematocrit (Bld) [Volume fraction] 22.5 % Low 39.0-51.0 [facility] Comment on above: Order Comment: Speci men Type: BLOOD SPECIMENOrdering Facility: [facility] Address: [address] [place] [address] Performed By: #### 5 8410-2 ####[facility] LABORATORYCLIA [id number] [address] STATES OF [facility] Hemoglobin (Bld) [Mass/Vol] 7.0 g/dL Low 13.0-17.0 [facility] Comment on above: Order Comment: Speci men Type: BLOOD SPECIMENOrdering Facility: [facility] Address: [address] [place] [address] Performed By: #### 5 8410-2 ####[facility] LABORATORYCLIA [id number] [address] STATES [facility] MCH (RBC) [Entitic mass] 27.1 pg Normal 26.0-34.0 [facility] Comment on above: Order Comment: Speci men Type: BLOOD SPECIMENOrdering Facility: [facility] Address: [address] [place] [address] Performed By: #### 5 8410-2 ####[facility] LABORATORYCLIA [id number] [address] [place] MCHC (RBC) [Mass/Vol] 31.1 g/dL Normal 30.5-36.0 [facility] Comment on above: Order Comment: Speci men Type: BLOOD SPECIMENOrdering Facility: [facility] Address: [address] [place] [address] Performed By: #### 5 8410-2 ####[facility] LABORATORYCLIA [id number] [address] [place] MCV (RBC) [Entitic vol] 87.2 fL Normal 80.0-100.0 [facility] Comment on above: Order Comment: Speci men Type: BLOOD SPECIMENOrdering Facility: [facility] Address: [address] [place] [address] Performed By: #### 5 8410-2 ####[facility] LABORATORYCLIA [id number] [address] [place] Nucleated RBC (Bld) [#/Vol] 10*3/uL Normal <0.01 [facility] Comment on above: Order Comment: Speci men Type: BLOOD SPECIMENOrdering Facility: [facility] Address: [address] [place] [address] Performed By: #### 5 8410-2 ####[facility] LABORATORYCLIA [id number] [place] [address] [place] Platelet mean volume (Bld) [Entitic vol] 10.4 fL Normal 9.0-12.7 [facility] Comment on above: Order Comment: Speci men Type: BLOOD SPECIMENOrdering Facility: [facility] Address: [address] [place] [address] Performed By: #### 5 8410-2 ####[facility] LABORATORYCLIA [id number] [place] [address] [place] Platelets (Bld) [#/Vol] 287 10*3/uL Normal 150-400 [facility] Comment on above: Order Comment: Speci men Type: BLOOD SPECIMENOrdering Facility: [facility] Address: [address] [place] [address] Performed By: #### 5 8410-2 ####[facility] LABORATORYCLIA [id number] [address] [place] RBC (Bld) [#/Vol] 2.58 10*6/uL Low 4.20-6.00 [facility] Comment on above: Order Comment: Speci men Type: BLOOD SPECIMENOrdering Facility: [facility] Address: [address] [place] [address] Performed By: #### 5 8410-2 ####[facility] LABORATORYCLIA [id number] [place] [address] [place] WBC (Bld) [#/Vol] 11.83 10*3/uL High 3.70-11.00 [facility] Comment on above: Order Comment: Speci men Type: BLOOD SPECIMENOrdering Facility: [facility] Address: [address] [place] [address] Performed By: #### 5 8410-2 ####[facility] LABORATORYCLIA [id number] [place] [address] [place] CONSULT PROGon 04-18-2025 CONSULT PROG Normal [facility] ECG COMPLETEon 04-18-2025 ECG COMPLETE Normal [facility] Hgb Bld-ncon 04-18-2025 Hemoglobin (Bld) [Mass/Vol] 7.5 g/dL Low 13.0-17.0 [facility] Comment on above: Order Comment: Speci men Type: BLOOD SPECIMENOrdering Facility: [facility] Address: [address] [place] [address] Performed By: #### 7 18-7 ####[facility] LABORATORYCLIA [id number] [place] [address] [place] Hemoglobin (Bld) [Mass/Vol] 6.9 g/dL Low 13.0-17.0 [facility] Comment on above: Order Comment: Speci men Type: BLOOD SPECIMENOrdering Facility: [facility] Address: [address] [place] [address] Performed By: #### 7 18-7 ####[facility] LABORATORYCLIA [id number] [place] [address] [place] Magn[facility] Magnesium [Mass/Vol] 1.8 mg/dL Normal 1.7-2.3 [facility] Comment on above: Order Comment: Speci men Type: BLOOD SPECIMENOrdering Facility: [facility] Address: [address] [place] [address] Performed By: #### 1 751-7, 64152-9, 2777-1, 34999-7 ####[facility]ORATORYCLIA [id number] [place] [address] [place] POTASSIUMon 04-18-2025 Potassium [Moles/Vol] 3.7 mmol/L Normal 3.7-5.1 [facility] Comment on above: Order Comment: Speci men Type: BLOOD SPECIMENOrdering Facility: [facility] Address: [address] [place] [address] Performed By: #### K 1 ####[facility] LABORATORYCLIA [id number] [place] [address] [place] Phosphate SerPl-mCncon 04-18 Phosphate [Mass/Vol] 3.2 mg/dL Normal 2.7-4.8 [facility] Comment on above: Order Comment: Speci men Type: BLOOD SPECIMENOrdering Facility: [facility] Address: [address] [place] [address] Performed By: #### 1 751-7, 18156-1, 2777-1, 80125-2 ####[facility] LABORATORYCLIA [id number] [place] [address] [place] THERAPY NTon 04-18-2025 THERAPY NT Normal [facility] TYPE + SCREENon 04-18-2025 ABO O Normal [facility] Comment on above: Order Comment: Speci men Type: BLOOD SPECIMENOrdering Facility: [facility] Address: [address] [place] [address] Performed By: #### T SCR ####[facility] BLOOD BANKCLIA [id number] [place] [address] [place] Rh Nom (Bld) Positive Normal [facility] Comment on above: Order Comment: Speci men Type: BLOOD SPECIMENOrdering Facility: [facility] Address: [address] [place] [address] Performed By: #### T SCR ####[facility] BLOOD BANKCLIA [id number] [place] [address] [place] TYPE AND SCREEN EXPIRATION 04/21/2025 23:59 Normal [facility] Comment on above: Order Comment: Speci men Type: BLOOD SPECIMENOrdering Facility: [facility] Address: [address] [place] [address] Performed By: #### T SCR ####[facility] BLOOD BANKCLIA [id number] [place] [address] [place] XR CHEST 1V FRONTALon 2024 XR CHEST 1V FRONTAL Normal [facility] ALLIED HEALTHon 04-17-2025 ALLIED HEALTH Normal [facility] CBC panel Auto (Bld)on 04-17 Erythrocyte distribution width (RBC) [Ratio] 14.5 % Normal 11.5-15.0 [facility] Comment on above: Order Comment: Speci men Type: BLOOD SPECIMENOrdering Facility: [facility] Address: [address] [place] [address] Performed By: #### 5 8410-2 ####[facility] LABORATORYCLIA [id number] [address] [place] Hematocrit (Bld) [Volume fraction] 27.7 % Low 39.0-51.0 [facility] Comment on above: Order Comment: Speci men Type: BLOOD SPECIMENOrdering Facility: [facility] Address: [address] [place] [address] Performed By: #### 5 8410-2 ####[facility] LABORATORYCLIA [id number] [address] [place] Hemoglobin (Bld) [Mass/Vol] 8.4 g/dL Low 13.0-17.0 [facility] Comment on above: Order Comment: Speci men Type: BLOOD SPECIMENOrdering Facility: [facility] Address: [address] [place] [address] Performed By: #### 5 8410-2 ####[facility] LABORATORYCLIA [id number] [place] [address] [place] MCH (RBC) [Entitic mass] 25.8 pg Low 26.0-34.0 [facility] Comment on above: Order Comment: Speci men Type: BLOOD SPECIMENOrdering Facility: [facility] Address: [address] [place] [address] Performed By: #### 5 8410-2 ####[facility] LABORATORYCLIA [id number] [address] STATES [facility] MCHC (RBC) [Mass/Vol] 30.3 g/dL Low 30.5-36.0 [facility] Comment on above: Order Comment: Speci men Type: BLOOD SPECIMENOrdering Facility: [facility] Address: [address] [place] [address] Performed By: #### 5 8410-2 ####[facility] LABORATORYCLIA [id number] [address] [place] MCV (RBC) [Entitic vol] 85.2 fL Normal 80.0-100.0 [facility] Comment on above: Order Comment: Speci men Type: BLOOD SPECIMENOrdering Facility: [facility] Address: [address] [place] [address] Performed By: #### 5 8410-2 ####[facility] LABORATORYCLIA [id number] [address] [place] Nucleated RBC (Bld) [#/Vol] 10*3/uL Normal <0.01 [facility] Comment on above: Order Comment: Speci men Type: BLOOD SPECIMENOrdering Facility: [facility] Address: [address] [place] [address] Performed By: #### 5 8410-2 ####[facility] LABORATORYCLIA [id number] [address] [place] Platelet mean volume (Bld) [Entitic vol] 10.7 fL Normal 9.0-12.7 [facility] Comment on above: Order Comment: Speci men Type: BLOOD SPECIMENOrdering Facility: [facility] Address: [address] [place] [address] Performed By: #### 5 8410-2 ####[facility] LABORATORYCLIA [id number] [place] [address] [place] Platelets (Bld) [#/Vol] 319 10*3/uL Normal 150-400 [facility] Comment on above: Order Comment: Speci men Type: BLOOD SPECIMENOrdering Facility: [facility] Address: [address] [place] [address] Performed By: #### 5 8410-2 ####[facility] LABORATORYCLIA [id number] [address] [place] [facility] RBC (Bld) [#/Vol] 3.25 10*6/uL Low 4.20-6.00 [facility] Comment on above: Order Comment: Speci men Type: BLOOD SPECIMENOrdering Facility: [facility] Address: [address] [place] [address] Performed By: #### 5 8410-2 ####[facility] LABORATORYCLIA [id number] [address] WBC (Bld) [#/Vol] 13.04 10*3/uL High 3.70-11.00 [facility] Comment on above: Order Comment: Speci men Type: BLOOD SPECIMENOrdering Facility: [facility] Address: [address] [place] [address] Performed By: #### 5 8410-2 ####[facility]ORATORYCLIA [id number] [address] ABD/PEL W IVCONon 025 CT ABD/PEL W IVCON Normal [facility] CT BRAIN WO IVCONon 04-17-[address] BRAIN WO IVCON Normal [facility] ECG COMPLETEon 04-17-2025 ECG COMPLETE Normal [facility] Hgb Bld-mCncon 04-17-2025 Hemoglobin (Bld) [Mass/Vol] 7.2 g/dL Low 13.0-17.0 [facility] Comment on above: Order Comment: Speci men Type: BLOOD SPECIMENOrdering Facility: [facility] Address: [address] [place] [address] Performed By: #### 7 18-7 ####[facility]ORATORYCLIA [id number] [address] OF [facility] NURSING PROGon 04-17-2025 NURSING PROG Normal [facility] Procalcitonin SerPl-mCncon 0 04-17-2025 Procalcitonin [Mass/Vol] 0.08 ng/mL Normal <0.09 [facility] Comment on above: Order Comment: Speci men Type: BLOOD SPECIMENOrdering Facility: [facility] Address: [address] [place] [address] Result Comment: For a guided interpretation of test results, please visit the Change in Procalcitonin Calculator, [email or web address]. Performed By: #### 3 3959-8, 81538-7, 257-8 ####[facility] LABORATORYCLIA [id number] [address] Renal function 2000 panelon 04-17-2025 Albumin [Mass/Vol] 2.8 g/dL Low 3.9-4.9 [facility] Comment on above: Order Comment: Speci men Type: BLOOD SPECIMENOrdering Facility: [facility] Address: [address] [place] [address] Performed By: #### 3 3959-8, 79230-6, 257-8 ####[facility] LABORATORYCLIA [id number] [address] [place] [facility] Anion gap [Moles/Vol] 12 mmol/L Normal 8-15 [facility] Comment on above: Order Comment: Speci men Type: BLOOD SPECIMENOrdering Facility: [facility] Address: [address] [place] [address] Performed By: #### 3 3959-8, 61536-1, 257-8 ####[facility] LABORATORYCLIA [id number] [place] [address] [place] Calcium [Mass/Vol] 8.2 mg/dL Low 8.5-10.2 [facility] Comment on above: Order Comment: Speci men Type: BLOOD SPECIMENOrdering Facility: [facility] Address: [address] [place] [address] Performed By: #### 3 3959-8, 92506-8, 2571-8 ####[facility] LABORATORYCLIA [id number] [place] [address] [place] Chloride [Moles/Vol] 104 mmol/L Normal 98-107 [facility] Comment on above: Order Comment: Speci men Type: BLOOD SPECIMENOrdering Facility: [facility] Address: [address] [place] [address] Performed By: #### 3 3959-8, 84081-7, 257-8 ####[facility] LABORATORYCLIA [id number] [place] [id number] [place] CO2 [Moles/Vol] 22 mmol/L Normal 22-30 [facility] Comment on above: Order Comment: Speci men Type: BLOOD SPECIMENOrdering Facility: [facility] Address: [address] [place] [address] Performed By: #### 3 3959-8, 15791-3, 2578 ####[facility] LABORATORYCLIA [id number] [place] [address] [place] Creatinine [Mass/Vol] 1.06 mg/dL Normal 0.73-1.22 [facility] Comment on above: Order Comment: Speci men Type: BLOOD SPECIMENOrdering Facility: [facility] Address: [address] [place] [address] Performed By: #### 3 3959-8, 76900-9, 257-8 ####[facility] LABORATORYCLIA [id number] [place] [address] [place] eGFRcr SerPlBld CKD-EPI 2020 74 mL/min/1.73m??? Normal >=60 [facility] Comment on above: Order Comment: Speci men Type: BLOOD SPECIMENOrdering Facility: [facility] Address: [address] [place] [address] Result Comment: Mary Kay mated Glomerular Filtration [...] actual GFR. Performed By: #### 3 3959-8, 52030-6, 8 ####[facility] LABORATORYCLIA [id number] [place] [address] [place] Glucose [Mass/Vol] 166 mg/dL High 74-99 [facility] Comment on above: Order Comment: Jose Cruz men Type: BLOOD SPECIMENOrdering Facility: [facility] Address: [address] [place] [address] Result Comment: The [place] Diabetes Association (ADA) provides guidance for cutoff [...] Standards of Medical Care in Diabetes 2016, [place] Diabetes Association. Diabetes Care. 2016.39(Suppl 1). Performed By: #### 3 3959-8, 80369-0, 8 ####[facility] LABORATORYCLIA [id number] [place] [address] [place] Phosphate [Mass/Vol] 3.1 mg/dL Normal 2.7-4.8 [facility] Comment on above: Order Comment: Jose Cruz johnson Type: BLOOD SPECIMENOrdering Facility: [facility] Address: [address] [place] [address] Performed By: #### 3 3959-8, 90842-8, 8 ####[facility] LABORATORYCLIA [id number] [place] [address] [place] Potassium [Moles/Vol] 3.8 mmol/L Normal 3.7-5.1 [facility] Comment on above: Order Comment: Jose Cruz johnson Type: BLOOD SPECIMENOrdering Facility: [facility] Address: [address] [place] [address] Performed By: #### 3 3959-8, 43932-0, 8 ####[facility] LABORATORYCLIA [id number] [address] [place] Sodium [Moles/Vol] 138 mmol/L Normal 136-144 [facility] Comment on above: Order Comment: Speci men Type: BLOOD SPECIMENOrdering Facility: [facility] Address: [address] [place] [address] Performed By: #### 3 3959-8, 32961-7, 8 ####[facility] LABORATORYCLIA [id number] [address] [place] [facility] Urea nitrogen [Mass/Vol] 22 mg/dL Normal 9-24 [facility] Comment on above: Order Comment: Speci men Type: BLOOD SPECIMENOrdering Facility: [facility] Address: [address] [place] [address] Performed By: #### 3 3959-8, 15735-7, 8 ####[facility] LABORATORYCLIA [id number] [address] [place] Trigl SerPl-mCncon 5 Triglyceride [Mass/Vol] 228 mg/dL High <150 [facility] Comment on above: Order Comment: Speci men Type: BLOOD SPECIMENOrdering Facility: [facility] Address: [address] [place] [address] Result Comment: <150 mg/dL, Normal 150-199 mg/dL, Borderline high 200-499 mg/dL, High>499 mg/dL, Very highReference:1. National Cholesterol Education Program ATP III Guideline At-A-Glance Quick Desk Reference: National Heart, Lung, and Blood [place]. National Institutes of Health. 2001: NIH Publication No. 01-3305. Performed By: #### 3 3959-8, 55309-6, 257-8 ####[facility] LABORATORYCLIA [id number] [address] [place] Triglyceride [Mass/Vol]on FASTING TIME unknown Normal [facility] Comment on above: Order Comment: Speci men Type: BLOOD SPECIMENOrdering Facility: [facility] Address: [address] [place] [address] Performed By: #### 3 3959-8, 87511-6, 2571-8 ####[facility] LABORATORYCLIA [id number] [address] [place] XR ABDOMEN 1V SUPINEon 04-17 XR ABDOMEN 1V SUPINE Normal [facility] XR CHEST 1V FRONTALon 2024 XR CHEST 1V FRONTAL Normal [facility] aPTT PPPon 04-17-2025 aPTT Coag (PPP) [Time] s High 23.0-32.4 [facility] Comment on above: Order Comment: Speci men Type: BLOOD SPECIMENOrdering Facility: [facility] Address: [address] [place] [address] Performed By: #### 1 4979-9 ####[facility] LABORATORYCLIA [id number] [address] aPTT Coag (PPP) [Time] 45.8 s High 23.0-32.4 [facility] Comment on above: Order Comment: Speci men Type: BLOOD SPECIMENOrdering Facility: [facility] Address: [address] [place] [address] Performed By: #### 1 4979-9 ####[facility] LABORATORYCLIA [id number] [address] [place] CASE MANAGEMon 04-16-2025 CASE MANAGEM Normal [facility] CBC panel Auto (Bld)on 04-16 Erythrocyte distribution width (RBC) [Ratio] 14.6 % Normal 11.5-15.0 [facility] Comment on above: Order Comment: Speci men Type: BLOOD SPECIMENOrdering Facility: [facility] Address: [address] [place] [address] Performed By: #### 5 8410-2 ####[facility] LABORATORYCLIA [id number] [address] Hematocrit (Bld) [Volume fraction] 28.4 % Low 39.0-51.0 [facility] Comment on above: Order Comment: Speci men Type: BLOOD SPECIMENOrdering Facility: [facility] Address: [address] [place] [address] Performed By: #### 5 8410-2 ####[facility] LABORATORYCLIA [id number] [address] [place] [facility] Hemoglobin (Bld) [Mass/Vol] 8.8 g/dL Low 13.0-17.0 [facility] Comment on above: Order Comment: Speci men Type: BLOOD SPECIMENOrdering Facility: [facility] Address: [address] [place] [address] Performed By: #### 5 8410-2 ####[facility] LABORATORYCLIA [id number] [address] MCH (RBC) [Entitic mass] 27.1 pg Normal 26.0-34.0 [facility] Comment on above: Order Comment: Speci men Type: BLOOD SPECIMENOrdering Facility: [facility] Address: [address] [place] [address] Performed By: #### 5 8410-2 ####[facility] LABORATORYCLIA [id number] [address] [place] MCHC (RBC) [Mass/Vol] 31.0 g/dL Normal 30.5-36.0 [facility] Comment on above: Order Comment: Speci men Type: BLOOD SPECIMENOrdering Facility: [facility] Address: [address] [place] [address] Performed By: #### 5 8410-2 ####[facility] LABORATORYCLIA [id number] [address] MCV (RBC) [Entitic vol] 87.4 fL Normal 80.0-100.0 [facility] Comment on above: Order Comment: Speci men Type: BLOOD SPECIMENOrdering Facility: [facility] Address: [address] [place] [address] Performed By: #### 5 8410-2 ####[facility] LABORATORYCLIA [id number] [address] [place] Nucleated RBC (Bld) [#/Vol] 10*3/uL Normal <0.01 [facility] Comment on above: Order Comment: Speci men Type: BLOOD SPECIMENOrdering Facility: [facility] Address: [address] [place] [address] Performed By: #### 5 8410-2 ####[facility] LABORATORYCLIA [id number] [address] [place] Platelet mean volume (Bld) [Entitic vol] 10.5 fL Normal 9.0-12.7 [facility] Comment on above: Order Comment: Speci men Type: BLOOD SPECIMENOrdering Facility: [facility] Address: [address] [place] [address] Performed By: #### 5 8410-2 ####[facility] LABORATORYCLIA [id number] [address] [place] Platelets (Bld) [#/Vol] 267 10*3/uL Normal 150-400 [facility] Comment on above: Order Comment: Speci men Type: BLOOD SPECIMENOrdering Facility: [facility] Address: [address] [place] [address] Performed By: #### 5 8410-2 ####[facility] LABORATORYCLIA [id number] [place] [address] [place] RBC (Bld) [#/Vol] 3.25 10*6/uL Low 4.20-6.00 [facility] Comment on above: Order Comment: Speci men Type: BLOOD SPECIMENOrdering Facility: [facility] Address: [address] [place] [address] Performed By: #### 5 8410-2 ####[facility] LABORATORYCLIA [id number] [place] [address] [place] WBC (Bld) [#/Vol] 10.00 10*3/uL Normal 3.70-11.00 [facility] Comment on above: Order Comment: Speci men Type: BLOOD SPECIMENOrdering Facility: [facility] Address: [address] [place] [address] Performed By: #### 5 8410-2 ####[facility] LABORATORYCLIA [id number] [place] [address] [place] Magnesium SerPl-mCncon 04-16 Magnesium [Mass/Vol] 2.0 mg/dL Normal 1.7-2.3 [facility] Comment on above: Order Comment: Speci men Type: BLOOD SPECIMENOrdering Facility: [facility] Address: [address] [place] [address] Performed By: #### 1 9123-9, 31359-3 ####[facility] LABORATORYCLIA [id number] [place] [address] [place] NUTRITIONon 04-16-2025 NUTRITION Normal [facility] Renal function 2000 panelon 04-16-2025 Albumin [Mass/Vol] 2.7 g/dL Low 3.9-4.9 [facility] Comment on above: Order Comment: Speci men Type: BLOOD SPECIMENOrdering Facility: [facility] Address: [address] [place] [address] Performed By: #### 1 9123-9, 79491-4 ####[facility] LABORATORYCLIA [id number] [place] [address] [place] Anion gap [Moles/Vol] 13 mmol/L Normal 8-15 [facility] Comment on above: Order Comment: Speci men Type: BLOOD SPECIMENOrdering Facility: [facility] Address: [address] [place] [address] Performed By: #### 1 9123-9, 05594-9 ####[facility]ORATORYCLIA [id number] [place] [address] [place] Calcium [Mass/Vol] 7.9 mg/dL Low 8.5-10.2 [facility] Comment on above: Order Comment: Speci men Type: BLOOD SPECIMENOrdering Facility: [facility] Address: [address] [place] [address] Performed By: #### 1 9123-9, 51690-0 ####[facility] LABORATORYCLIA [id number] [place] [id number] [place] Chloride [Moles/Vol] 105 mmol/L Normal 98-107 [facility] Comment on above: Order Comment: Speci men Type: BLOOD SPECIMENOrdering Facility: [facility] Address: [address] [place] [address] Performed By: #### 1 9123-9, 01309-4 ####[facility] [place] LABORATORYCLIA [id number] [place] [id number] [place] CO2 [Moles/Vol] 22 mmol/L Normal 22-30 [facility] Comment on above: Order Comment: Speci men Type: BLOOD SPECIMENOrdering Facility: [facility] Address: [address] [place] [address] Performed By: #### 1 9123-9, 75574-0 ####[facility] [place] [facility]ORATORYCLIA [id number] [place] [address] [place] Creatinine [Mass/Vol] 0.98 mg/dL Normal 0.73-1.22 [facility] Comment on above: Order Comment: Speci men Type: BLOOD SPECIMENOrdering Facility: [facility] Address: [address] [place] [address] Performed By: #### 1 9123-9, 55812-9 ####[facility] [place] LABORATORYCLIA [id number] [place] [address] [place] eGFRcr SerPlBld CKD-EPI 2020 81 mL/min/1.73m??? Normal >=60 [facility] Comment on above: Order Comment: Speci men Type: BLOOD SPECIMENOrdering Facility: [facility] Address: [address] [place] [address] Result Comment: Mary Kay mated Glomerular Filtration [...] actual GFR. Performed By: #### 1 9123-9, 01931-8 ####[facility] [place] [facility]ORATORYCLIA [id number] [place] [address] [place] Glucose [Mass/Vol] 185 mg/dL High 74-99 [facility] Comment on above: Order Comment: Jose Cruz johnson Type: BLOOD SPECIMENOrdering Facility: [facility] Address: [address] [place] [address] Result Comment: The [place] Diabetes Association (ADA) provides guidance for cutoff [...] Standards of Medical Care in Diabetes 2016, [place] Diabetes Association. Diabetes Care. 2016.39(Suppl 1). Performed By: #### 1 9123-9, 15970-4 ####[facility] [place] [facility]ORATORYCLIA [id number] [place] [address] [place] Phosphate [Mass/Vol] 2.2 mg/dL Low 2.7-4.8 [facility] Comment on above: Order Comment: Jose Cruz johnson Type: BLOOD SPECIMENOrdering Facility: [facility] Address: [address] [place] [address] Performed By: #### 1 9123-9, 64699-0 ####[facility] [place] [facility]ORATORYCLIA [id number] [place] [address] [place] Potassium [Moles/Vol] 3.8 mmol/L Normal 3.7-5.1 [facility] Comment on above: Order Comment: Speci men Type: BLOOD SPECIMENOrdering Facility: [facility] Address: [address] [place] [address] Performed By: #### 1 9123-9, 10296-6 ####[facility] [place] [facility]ORATORYCLIA [id number] [place] [id number] [place] [facility] Sodium [Moles/Vol] 140 mmol/L Normal 136-144 [facility] Comment on above: Order Comment: Speci men Type: BLOOD SPECIMENOrdering Facility: [facility] Address: [address] [place] [address] Performed By: #### 1 9123-9, 54518-1 ####[facility] [place] [facility]ORATORYCLIA [id number] [address] [place] Urea nitrogen [Mass/Vol] 24 mg/dL Normal 9-24 [facility] Comment on above: Order Comment: Speci men Type: BLOOD SPECIMENOrdering Facility: [facility] Address: [address] [place] [address] Performed By: #### 1 9123-9, 95595-5 ####[facility] [place] [facility]ORATORYCLIA [id number] [address] [place] aPTT PPPon 04-16-2025 aPTT Coag (PPP) [Time] 41.4 s High 23.0-32.4 [facility] Comment on above: Order Comment: Speci men Type: BLOOD SPECIMENOrdering Facility: [facility] Address: [address] [place] [address] Performed By: #### 1 4979-9 ####[facility] [place] [facility]ORATORYCLIA [id number] [address] [place] aPTT Coag (PPP) [Time] 41.1 s High 23.0-32.4 [facility] Comment on above: Order Comment: Speci men Type: BLOOD SPECIMENOrdering Facility: [facility] Address: [address] [place] [address] Performed By: #### 1 4979-9 ####[facility]ORATORYCLIA [id number] [place] [address] aPTT Coag (PPP) [Time] 27.6 s Normal 23.0-32.4 [facility] Comment on above: Order Comment: Speci men Type: BLOOD SPECIMENOrdering Facility: [facility] Address: [address] [place] [address] Performed By: #### 1 4979-9 ####[facility] [place] [facility]ORATORYCLIA [id number] [address] CBC panel Auto (Bld)on 04-15 Erythrocyte distribution width (RBC) [Ratio] 15.0 % Normal 11.5-15.0 [facility] Comment on above: Order Comment: Speci men Type: BLOOD SPECIMENOrdering Facility: [facility] Address: [address] [place] [address] Performed By: #### 5 8410-2 ####[facility] [place] [facility]ORATORYCLIA [id number] [address] STATES [facility] Hematocrit (Bld) [Volume fraction] 25.2 % Low 39.0-51.0 [facility] Comment on above: Order Comment: Speci men Type: BLOOD SPECIMENOrdering Facility: [facility] Address: [address] [place] [address] Performed By: #### 5 8410-2 ####[facility] [place] [facility]ORATORYCLIA [id number] [address] [place] Hemoglobin (Bld) [Mass/Vol] 7.9 g/dL Low 13.0-17.0 [facility] Comment on above: Order Comment: Speci men Type: BLOOD SPECIMENOrdering Facility: [facility] Address: [address] [place] [address] Performed By: #### 5 8410-2 ####[facility] [place] [facility]ORATORYCLIA [id number] [address] MCH (RBC) [Entitic mass] 26.7 pg Normal 26.0-34.0 [facility] Comment on above: Order Comment: Speci men Type: BLOOD SPECIMENOrdering Facility: [facility] Address: [address] [place] [address] Performed By: #### 5 8410-2 ####[facility] [place] [facility]ORATORYCLIA [id number] [address] STATES [facility] MCHC (RBC) [Mass/Vol] 31.3 g/dL Normal 30.5-36.0 [facility] Comment on above: Order Comment: Speci men Type: BLOOD SPECIMENOrdering Facility: [facility] Address: [address] [place] [address] Performed By: #### 5 8410-2 ####[facility] [place] [facility]ORATORYCLIA [id number] [address] [place] MCV (RBC) [Entitic vol] 85.1 fL Normal 80.0-100.0 [facility] Comment on above: Order Comment: Speci men Type: BLOOD SPECIMENOrdering Facility: [facility] Address: [address] [place] [address] Performed By: #### 5 8410-2 ####[facility] [place] [facility]ORATORYCLIA [id number] [address] [place] Nucleated RBC (Bld) [#/Vol] 10*3/uL Normal <0.01 [facility] Comment on above: Order Comment: Speci men Type: BLOOD SPECIMENOrdering Facility: [facility] Address: [address] [place] [address] Performed By: #### 5 8410-2 ####[facility] [place] [facility]ORATORYCLIA [id number] [address] [place] Platelet mean volume (Bld) [Entitic vol] 10.2 fL Normal 9.0-12.7 [facility] Comment on above: Order Comment: Speci men Type: BLOOD SPECIMENOrdering Facility: [facility] Address: [address] [place] [address] Performed By: #### 5 8410-2 ####[facility] [place] [facility]ATORYCLIA [id number] [place] [address] [place] Platelets (Bld) [#/Vol] 235 10*3/uL Normal 150-400 [facility] Comment on above: Order Comment: Speci men Type: BLOOD SPECIMENOrdering Facility: [facility] Address: [address] [place] [address] Performed By: #### 5 8410-2 ####[facility] [place] [facility]ATORYCLIA [id number] [address] [place] RBC (Bld) [#/Vol] 2.96 10*6/uL Low 4.20-6.00 [facility] Comment on above: Order Comment: Speci men Type: BLOOD SPECIMENOrdering Facility: [facility] Address: [address] [place] [address] Performed By: #### 5 8410-2 ####[facility] [place] [facility]ORATORYCLIA [id number] [address] STATES OF [facility] WBC (Bld) [#/Vol] 9.70 10*3/uL Normal 3.70-11.00 [facility] Comment on above: Order Comment: Speci men Type: BLOOD SPECIMENOrdering Facility: [facility] Address: [address] [place] [address] Performed By: #### 5 8410-2 ####[facility] [place] [facility]ORATORYCLIA [id number] [address] [place] CONSULT PROGon 04-15-2025 CONSULT PROG Normal [facility] Magnesium SerPl-mCncon 04-15 Magnesium [Mass/Vol] 2.4 mg/dL High 1.7-2.3 [facility] Comment on above: Order Comment: Speci men Type: BLOOD SPECIMENOrdering Facility: [facility] Address: [address] [place] [address] Performed By: #### 2 4362-6, 63388-5 ####[facility] [place] [facility]ORATORYCLIA [id number] [address] [place] Renal function 2000 panelon 04-15-2025 Albumin [Mass/Vol] 2.6 g/dL Low 3.9-4.9 [facility] Comment on above: Order Comment: Speci men Type: BLOOD SPECIMENOrdering Facility: [facility] Address: [address] [place] [address] Performed By: #### 2 4362-6, ####[facility]ORATORYCLIA [id number] [place] [address] [place] Anion gap [Moles/Vol] 14 mmol/L Normal 8-15 [facility] Comment on above: Order Comment: Speci men Type: BLOOD SPECIMENOrdering Facility: [facility] Address: [address] [place] [address] Performed By: #### 2 4362-6, ####[facility] LABORATORYCLIA [id number] [place] [address] [place] Calcium [Mass/Vol] 7.9 mg/dL Low 8.5-10.2 [facility] Comment on above: Order Comment: Speci men Type: BLOOD SPECIMENOrdering Facility: [facility] Address: [address] [place] [address] Performed By: #### 2 436-6, ####[facility] [place] [facility]ATORYCLIA [id number] [place] [address] [place] Chloride [Moles/Vol] 104 mmol/L Normal 98-107 [facility] Comment on above: Order Comment: Speci men Type: BLOOD SPECIMENOrdering Facility: [facility] Address: [address] [place] [address] Performed By: #### 2 436-6, ####[facility]ORATORYCLIA [id number] [place] [address] [place] CO2 [Moles/Vol] 22 mmol/L Normal 22-30 [facility] Comment on above: Order Comment: Speci men Type: BLOOD SPECIMENOrdering Facility: [facility] Address: [address] [place] [address] Performed By: #### 2 4362-6, ####[facility] LABORATORYCLIA [id number] [place] [address] [place] Creatinine [Mass/Vol] 1.08 mg/dL Normal 0.73-1.22 [facility] Comment on above: Order Comment: Jose Cruz johnson Type: BLOOD SPECIMENOrdering Facility: [facility] Address: [address] [place] [address] Performed By: #### 2 4362-6, ####[facility] [place] [facility]ATORYCLIA [id number] [place] [id number] [facility] [place] eGFRcr SerPlBld CKD-EPI 2020 72 mL/min/1.73m??? Normal >=60 [facility] Comment on above: Order Comment: Jose Cruz johnson Type: BLOOD SPECIMENOrdering Facility: [facility] Address: [address] [place] [address] Result Comment: Mary Kay mated Glomerular Filtration [...] actual GFR. Performed By: #### 2 4362-6, ####[facility] [place] [facility]ATORYCLIA [id number] [place] [id number] [place] Glucose [Mass/Vol] 189 mg/dL High 74-99 [facility] Comment on above: Order Comment: Jose Cruz johnson Type: BLOOD SPECIMENOrdering Facility: [facility] Address: [address] [place] [address] Result Comment: The [place] Diabetes Association (ADA) provides guidance for cutoff [...] Standards of Medical Care in Diabetes 2016, [place] Diabetes Association. Diabetes Care. 2016.39(Suppl 1). Performed By: #### 2 4362-6, ####[facility] LABORATORYCLIA [id number] [place] [address] [place] Phosphate [Mass/Vol] 2.7 mg/dL Normal 2.7-4.8 [facility] Comment on above: Order Comment: Speci men Type: BLOOD SPECIMENOrdering Facility: [facility] Address: [address] [place] [address] Performed By: #### 2 4362-6, ####[facility] [place] [facility]ORATORYCLIA [id number] [address] [place] Potassium [Moles/Vol] 3.6 mmol/L Low 3.7-5.1 [facility] Comment on above: Order Comment: Speci men Type: BLOOD SPECIMENOrdering Facility: [facility] Address: [address] [place] [address] Performed By: #### 2 43610-26, ####[facility] [place] [facility]ORATORYCLIA [id number] [address] STATES OF [facility] Sodium [Moles/Vol] 140 mmol/L Normal 136-144 [facility] Comment on above: Order Comment: Speci men Type: BLOOD SPECIMENOrdering Facility: [facility] Address: [address] [place] [address] Performed By: #### 2 43610-26, ####[facility] [place] [facility]ATORYCLIA [id number] [place] [id number] [place] Urea nitrogen [Mass/Vol] 25 mg/dL High 9-24 [facility] Comment on above: Order Comment: Speci men Type: BLOOD SPECIMENOrdering Facility: [facility] Address: [address] [place] [address] Performed By: #### 2 436-6, ####[facility] [place] [facility]ATORYCLIA [id number] [place] [address] [place] XR CHEST 1V FRONTALon 2024 XR CHEST 1V FRONTAL Normal [facility] CBC panel Auto (Bld)on 04-14 Erythrocyte distribution width (RBC) [Ratio] 15.3 % High 11.5-15.0 [facility] Comment on above: Order Comment: Speci men Type: BLOOD SPECIMENOrdering Facility: [facility] Address: [address] [place] [address] Performed By: #### 5 8410-2 ####[facility] [place] [facility]ORATORYCLIA [id number] [address] Hematocrit (Bld) [Volume fraction] 24.0 % Low 39.0-51.0 [facility] Comment on above: Order Comment: Speci men Type: BLOOD SPECIMENOrdering Facility: [facility] Address: [address] [place] [address] Performed By: #### 5 8410-2 ####[facility] [place] [facility]ORATORYCLIA [id number] [address] Hemoglobin (Bld) [Mass/Vol] 7.3 g/dL Low 13.0-17.0 [facility] Comment on above: Order Comment: Speci men Type: BLOOD SPECIMENOrdering Facility: [facility] Address: [address] [place] [address] Performed By: #### 5 8410-2 ####[facility] [place] [facility]ORATORYCLIA [id number] [address] STATES [facility] MCH (RBC) [Entitic mass] 26.2 pg Normal 26.0-34.0 [facility] Comment on above: Order Comment: Speci men Type: BLOOD SPECIMENOrdering Facility: [facility] Address: [address] [place] [address] Performed By: #### 5 8410-2 ####[facility] [place] [facility]ORATORYCLIA [id number] [address] [place] MCHC (RBC) [Mass/Vol] 30.4 g/dL Low 30.5-36.0 [facility] Comment on above: Order Comment: Speci men Type: BLOOD SPECIMENOrdering Facility: [facility] Address: [address] [place] [address] Performed By: #### 5 8410-2 ####[facility] [place] [facility]ORATORYCLIA [id number] [address] MCV (RBC) [Entitic vol] 86.0 fL Normal 80.0-100.0 [facility] Comment on above: Order Comment: Speci men Type: BLOOD SPECIMENOrdering Facility: [facility] Address: [address] [place] [address] Performed By: #### 5 8410-2 ####[facility] [place] [facility]ORATORYCLIA [id number] [address] OF [facility] Nucleated RBC (Bld) [#/Vol] 10*3/uL Normal <0.01 [facility] Comment on above: Order Comment: Speci men Type: BLOOD SPECIMENOrdering Facility: [facility] Address: [address] [place] [address] Performed By: #### 5 8410-2 ####[facility] [place] [facility]ORATORYCLIA [id number] [address] Platelet mean volume (Bld) [Entitic vol] 10.6 fL Normal 9.0-12.7 [facility] Comment on above: Order Comment: Speci men Type: BLOOD SPECIMENOrdering Facility: [facility] Address: [address] [place] [address] Performed By: #### 5 8410-2 ####[facility] [place] [facility]ATORYCLIA [id number] [address] STATES [facility] Platelets (Bld) [#/Vol] 195 10*3/uL Normal 150-400 [facility] Comment on above: Order Comment: Speci men Type: BLOOD SPECIMENOrdering Facility: [facility] Address: [address] [place] [address] Performed By: #### 5 8410-2 ####[facility] [place] [facility]ATORYCLIA [id number] [address] [place] RBC (Bld) [#/Vol] 2.79 10*6/uL Low 4.20-6.00 [facility] Comment on above: Order Comment: Jose Cruz johnson Type: BLOOD SPECIMENOrdering Facility: [facility] Address: [address] [place] [address] Performed By: #### 5 8410-2 ####[facility] [place] [facility]ATORYCLIA [id number] [address] WBC (Bld) [#/Vol] 9.61 10*3/uL Normal 3.70-11.00 [facility] Comment on above: Order Comment: Jose Cruz johnson Type: BLOOD SPECIMENOrdering Facility: [facility] Address: [address] [place] [address] Performed By: #### 5 8410-2 ####[facility]ATORYCLIA [id number] [address] CONSULT PROGon 04-14-2025 CONSULT PROG Normal [facility] PT panel Coag (PPP)on 2024 INR Coag (PPP) [Relative time] 1.0 {INR} Normal 0.9-1.3 [facility] Comment on above: Order Comment: Jose Cruz johnson Type: BLOOD SPECIMENOrdering Facility: [facility] Address: [address] [place] [address] Result Comment: Antionette min K Antagonist (VKA) Therapeutic Range: INR 2 to 3 (Target INR of 2.5)Note: For patients treated with VKA drugs, such as warfarin, the [place] [employer] 2012 Guideline recommends [...] al. Chest 2012, 141:7S-47SAngelica RA, et al. [facility] 2017, 70: 252-289 Performed By: #### 3 4528-0, 53647-6 ####[facility] [place]ATORYCLIA [id number] [place] [address] [place] PT Coag (PPP) [Time] 10.7 s Normal 9.7-13.0 [facility] Comment on above: Order Comment: Speci men Type: BLOOD SPECIMENOrdering Facility: [facility] Address: [address] [place] [address] Performed By: #### 3 4528-0, 75526-4 ####[facility]ATORYCLIA [id number] [address] [place] Renal function 2000 panelon 04-14-2025 Albumin [Mass/Vol] 2.7 g/dL Low 3.9-4.9 [facility] Comment on above: Order Comment: Speci men Type: BLOOD SPECIMENOrdering Facility: [facility] Address: [address] [place] [address] Performed By: #### 2 4362-6 ####[facility]ATORYCLIA [id number] [address] [place] Anion gap [Moles/Vol] 18 mmol/L High 8-15 [facility] Comment on above: Order Comment: Speci men Type: BLOOD SPECIMENOrdering Facility: [facility] Address: [address] [place] [address] Performed By: #### 2 4362-6 ####[facility] [place]ORATORYCLIA [id number] [address] [place] Calcium [Mass/Vol] 8.4 mg/dL Low 8.5-10.2 [facility] Comment on above: Order Comment: Speci men Type: BLOOD SPECIMENOrdering Facility: [facility] Address: [address] [place] [address] Performed By: #### 2 4362-6 ####[facility]ATORYCLIA [id number] [address] [place] Chloride [Moles/Vol] 100 mmol/L Normal 98-107 [facility] Comment on above: Order Comment: Speci men Type: BLOOD SPECIMENOrdering Facility: [facility] Address: [address] [place] [address] Performed By: #### 2 4362-6 ####[facility]ATORYCLIA [id number] [place] [address] [place] CO2 [Moles/Vol] 21 mmol/L Low 22-30 [facility] Comment on above: Order Comment: Speci men Type: BLOOD SPECIMENOrdering Facility: [facility] Address: [address] [place] [address] Performed By: #### 2 4362-6 ####[facility] INDIANACLIA [id number] [address] [place] Creatinine [Mass/Vol] 1.73 mg/dL High 0.73-1.22 [facility] Comment on above: Order Comment: Speci men Type: BLOOD SPECIMENOrdering Facility: [facility] Address: [address] [place] [address] Performed By: #### 2 4362-6 ####[facility]ORATORYCLIA [id number] [address] eGFRcr SerPlBld CKD-EPI 2020 41 mL/min/1.73m??? Low >=60 [facility] Comment on above: Order Comment: Speci men Type: BLOOD SPECIMENOrdering Facility: [facility] Address: [address] [place] [address] Result Comment: Mary Kay mated Glomerular Filtration [...] actual GFR. Performed By: #### 2 4362-6 ####[facility]ATORYCLIA [id number] [place] [address] [place] Glucose [Mass/Vol] 133 mg/dL High 74-99 [facility] Comment on above: Order Comment: Jose Cruz johnson Type: BLOOD SPECIMENOrdering Facility: [facility] Address: [address] [place] [address] Result Comment: The [place] Diabetes Association (ADA) provides guidance for cutoff [...] Standards of Medical Care in Diabetes 2016, [place] [employer] Association. Diabetes Care. 2016.39(Suppl 1). Performed By: #### 2 4362-6 ####[facility]ATORYCLIA [id number] [place] [address] [place] Phosphate [Mass/Vol] 3.6 mg/dL Normal 2.7-4.8 [facility] Comment on above: Order Comment: Jose Cruz johnson Type: BLOOD SPECIMENOrdering Facility: [facility] Address: [address] [place] [address] Performed By: #### 2 4362-6 ####[facility]ATORYCLIA [id number] [place] [address] [place] Potassium [Moles/Vol] 3.6 mmol/L Low 3.7-5.1 [facility] Comment on above: Order Comment: Jose Cruz johnson Type: BLOOD SPECIMENOrdering Facility: [facility] Address: [address] [place] [address] Performed By: #### 2 4362-6 ####[facility]ATORYCLIA [id number] [place] [address] [place] Sodium [Moles/Vol] 139 mmol/L Normal 136-144 [facility] Comment on above: Order Comment: Speci men Type: BLOOD SPECIMENOrdering Facility: [facility] Address: [address] [place] [address] Performed By: #### 2 4362-6 ####[facility]ORATORYCLIA [id number] [address] STATES OF [facility] Urea nitrogen [Mass/Vol] 24 mg/dL Normal 9-24 [facility] Comment on above: Order Comment: Speci men Type: BLOOD SPECIMENOrdering Facility: [facility] Address: [address] [place] [address] Performed By: #### 2 4362-6 ####[facility]ORATORYCLIA [id number] [address] [place] XR ABDOMEN 1V SUPINEon 04-14 XR ABDOMEN 1V SUPINE Normal [facility] aPTT PPPon 04-14-2025 aPTT Coag (PPP) [Time] 54.4 s High 23.0-32.4 [facility] Comment on above: Order Comment: Speci men Type: BLOOD SPECIMENOrdering Facility: [facility] Address: [address] [place] [address] Performed By: #### 3 4528-0, 50636-1 ####[facility]ORATORYCLIA [id number] [address] [place] aPTT Coag (PPP) [Time] 52.6 s High 23.0-32.4 [facility] Comment on above: Order Comment: Speci men Type: BLOOD SPECIMENOrdering Facility: [facility] Address: [address] [place] [address] Performed By: #### 1 4979-9 ####[facility]ORATORYCLIA [id number] [address] [place] Bacteria Ur Culton 5 Bacteria identified Cx Nom (U) CULTURE, URINE: No growth (<100 CFU/ml) Normal [facility] Comment on above: Performed By: #### 2 4356-8, 630-4 ####[facility]ATORYCLIA [id number] [address] [place] CASE MANAGEMon 04-13-2025 CASE MANAGEM Normal [facility] CBC panel Auto (Bld)on 04-13 Erythrocyte distribution width (RBC) [Ratio] 15.8 % High 11.5-15.0 [facility] Comment on above: Order Comment: Speci men Type: BLOOD SPECIMENOrdering Facility: [facility] Address: [address] [place] [address] Performed By: #### 5 8410-2 ####[facility] LABORATORYCLIA [id number] [address] Hematocrit (Bld) [Volume fraction] 24.5 % Low 39.0-51.0 [facility] Comment on above: Order Comment: Speci men Type: BLOOD SPECIMENOrdering Facility: [facility] Address: [address] [place] [address] Performed By: #### 5 8410-2 ####[facility] LABORATORYCLIA [id number] [address] [place] Hemoglobin (Bld) [Mass/Vol] 7.6 g/dL Low 13.0-17.0 [facility] Comment on above: Order Comment: Speci men Type: BLOOD SPECIMENOrdering Facility: [facility] Address: [address] [place] [address] Performed By: #### 5 8410-2 ####[facility] LABORATORYCLIA [id number] [address] [place] MCH (RBC) [Entitic mass] 27.0 pg Normal 26.0-34.0 [facility] Comment on above: Order Comment: Speci men Type: BLOOD SPECIMENOrdering Facility: [facility] Address: [address] [place] [address] Performed By: #### 5 8410-2 ####[facility] LABORATORYCLIA [id number] [address] [place] MCHC (RBC) [Mass/Vol] 31.0 g/dL Normal 30.5-36.0 [facility] Comment on above: Order Comment: Speci men Type: BLOOD SPECIMENOrdering Facility: [facility] Address: [address] [place] [address] Performed By: #### 5 8410-2 ####[facility] LABORATORYCLIA [id number] [address] STATES OF [facility] MCV (RBC) [Entitic vol] 86.9 fL Normal 80.0-100.0 [facility] Comment on above: Order Comment: Speci men Type: BLOOD SPECIMENOrdering Facility: [facility] Address: [address] [place] [address] Performed By: #### 5 8410-2 ####[facility] LABORATORYCLIA [id number] [address] [place] Nucleated RBC (Bld) [#/Vol] 10*3/uL Normal <0.01 [facility] Comment on above: Order Comment: Speci men Type: BLOOD SPECIMENOrdering Facility: [facility] Address: [address] [place] [address] Performed By: #### 5 8410-2 ####[facility]ORATORYCLIA [id number] [address] Platelet mean volume (Bld) [Entitic vol] 10.4 fL Normal 9.0-12.7 [facility] Comment on above: Order Comment: Speci men Type: BLOOD SPECIMENOrdering Facility: [facility] Address: [address] [place] [address] Performed By: #### 5 8410-2 ####[facility]ORATORYCLIA [id number] [address] [place] Platelets (Bld) [#/Vol] 163 10*3/uL Normal 150-400 [facility] Comment on above: Order Comment: Speci men Type: BLOOD SPECIMENOrdering Facility: [facility] Address: [address] [place] [address] Performed By: #### 5 8410-2 ####[facility]ORATORYCLIA [id number] [place] [address] [place] RBC (Bld) [#/Vol] 2.82 10*6/uL Low 4.20-6.00 [facility] Comment on above: Order Comment: Speci men Type: BLOOD SPECIMENOrdering Facility: [facility] Address: [address] [place] [address] Performed By: #### 5 8410-2 ####[facility]ORATORYCLIA [id number] [place] [address] [place] WBC (Bld) [#/Vol] 9.62 10*3/uL Normal 3.70-11.00 [facility] Comment on above: Order Comment: Speci men Type: BLOOD SPECIMENOrdering Facility: [facility] Address: [address] [place] [address] Performed By: #### 5 8410-2 ####[facility]ATORYCLIA [id number] [address] CONSULT PROGon 04-13-2025 CONSULT PROG Normal [facility] Magnesium SerPl-mCncon 04-13 Magnesium [Mass/Vol] 2.3 mg/dL Normal 1.7-2.3 [facility] Comment on above: Order Comment: Speci men Type: BLOOD SPECIMENOrdering Facility: [facility] Address: [address] [place] [address] Performed By: #### 2 4362-6, 17997-6 ####[facility]ORATORYCLIA [id number] [place] [address] [place] NUTRITIONon 04-13-2025 NUTRITION Normal [facility] PT panel Coag (PPP)on 2024 INR Coag (PPP) [Relative time] 1.0 {INR} Normal 0.9-1.3 [facility] Comment on above: Order Comment: Speci men Type: BLOOD SPECIMENOrdering Facility: [facility] Address: [address] [place] [address] Result Comment: Antionette min K Antagonist (VKA) Therapeutic Range: INR 2 to 3 (Target INR of 2.5)Note: For patients treated with VKA drugs, such as warfarin, the [place] [employer] 2012 Guideline recommends [...] al. Chest 2012, 141:7S-47SNishimura RA, et al. [facility] 2017, 70: 252-289 Performed By: #### 1 4979-9, 99556-4 ####[facility] INDIANACLIA [id number] [address] [place] PT Coag (PPP) [Time] 11.0 s Normal 9.7-13.0 [facility] Comment on above: Order Comment: Jose Cruz johnson Type: BLOOD SPECIMENOrdering Facility: [facility] Address: [address] [place] [address] Performed By: #### 1 4979-9, 41347-5 ####[facility] INDIANACLIA [id number] [address] [place] Renal function 2000 panelon 04-13-2025 Albumin [Mass/Vol] 2.8 g/dL Low 3.9-4.9 [facility] Comment on above: Order Comment: Jose Cruz johnson Type: BLOOD SPECIMENOrdering Facility: [facility] Address: [address] [place] [address] Performed By: #### 2 4362-6, 72290-1 ####[facility]ORATORYCLIA [id number] [address] [place] Anion gap [Moles/Vol] 19 mmol/L High 8-15 [facility] Comment on above: Order Comment: Jose Cruz johnson Type: BLOOD SPECIMENOrdering Facility: [facility] Address: [address] [place] [address] Performed By: #### 2 436-6, ####[facility] LABORATORYCLIA [id number] [place] [address] [place] Calcium [Mass/Vol] 7.7 mg/dL Low 8.5-10.2 [facility] Comment on above: Order Comment: Speci men Type: BLOOD SPECIMENOrdering Facility: [facility] Address: [address] [place] [address] Performed By: #### 2 4366, ####[facility]ORATORYCLIA [id number] [place] [address] [place] Chloride [Moles/Vol] 98 mmol/L Normal 98-107 [facility] Comment on above: Order Comment: Speci men Type: BLOOD SPECIMENOrdering Facility: [facility] Address: [address] [place] [address] Performed By: #### 2 43610-26, ####[facility]ATORYCLIA [id number] [place] [address] [place] CO2 [Moles/Vol] 20 mmol/L Low 22-30 [facility] Comment on above: Order Comment: Speci men Type: BLOOD SPECIMENOrdering Facility: [facility] Address: [address] [place] [address] Performed By: #### 2 43610-26, ####[facility]ORATORYCLIA [id number] [place] [address] [place] Creatinine [Mass/Vol] 2.26 mg/dL High 0.73-1.22 [facility] Comment on above: Order Comment: Speci men Type: BLOOD SPECIMENOrdering Facility: [facility] Address: [address] [place] [address] Performed By: #### 2 436-6, ####[facility]ORATORYCLIA [id number] [place] [address] [place] eGFRcr SerPlBld CKD-EPI 2020 30 mL/min/1.73m??? Low >=60 [facility] Comment on above: Order Comment: Jose Cruz johnson Type: BLOOD SPECIMENOrdering Facility: [facility] Address: [address] [place] [address] Result Comment: Mary Kay mated Glomerular Filtration [...] actual GFR. Performed By: #### 2 4362-6, 86471-4 ####[facility]ATORYCLIA [id number] [place] [address] [place] Glucose [Mass/Vol] 111 mg/dL High 74-99 [facility] Comment on above: Order Comment: Jose Cruz johnson Type: BLOOD SPECIMENOrdering Facility: [facility] Address: [address] [place] [address] Result Comment: The [place] Diabetes Association (ADA) provides guidance for cutoff [...] Standards of Medical Care in Diabetes 2016, [place] Diabetes Association. Diabetes Care. 2016.39(Suppl 1). Performed By: #### 2 4362-6, 65160-2 ####[facility]ATORYCLIA [id number] [place] [id number] [place] Phosphate [Mass/Vol] 3.9 mg/dL Normal 2.7-4.8 [facility] Comment on above: Order Comment: Jose Cruz johnson Type: BLOOD SPECIMENOrdering Facility: [facility] Address: [address] [place] [address] Performed By: #### 2 4362-6, ####[facility]ATORYCLIA [id number] [place] [id number] [place] [facility] Potassium [Moles/Vol] 3.7 mmol/L Normal 3.7-5.1 [facility] Comment on above: Order Comment: Speci men Type: BLOOD SPECIMENOrdering Facility: [facility] Address: [address] [place] [address] Performed By: #### 2 4362-6, ####[facility]ORATORYCLIA [id number] [address] [place] [facility] Sodium [Moles/Vol] 137 mmol/L Normal 136-144 [facility] Comment on above: Order Comment: Speci men Type: BLOOD SPECIMENOrdering Facility: [facility] Address: [address] [place] [address] Performed By: #### 2 4362-6, ####[facility]ORATORYCLIA [id number] [address] [place] [facility] Urea nitrogen [Mass/Vol] 20 mg/dL Normal 9-24 [facility] Comment on above: Order Comment: Speci men Type: BLOOD SPECIMENOrdering Facility: [facility] Address: [address] [place] [address] Performed By: #### 2 4362-6, ####[facility]ORATORYCLIA [id number] [address] [place] Urinalysis complete panel (U )on 04-13-2025 Bacteria LM.HPF (Urine sed) [#/Area] Many Abnormal None Seen [facility] Comment on above: Order Comment: Speci men Type: URINE SPECIMENOrdering Facility: [facility] Address: [address] [place] [address] Performed By: #### 2 4356-8, 630-4 ####[facility]ATORYCLIA [id number] [address] [place] Bilirubin Ql (U) Negative Normal Negative [facility] Comment on above: Order Comment: Speci men Type: URINE SPECIMENOrdering Facility: [facility] Address: [facility] [place] [place] [address] Performed By: #### 2 4356-8, 630-4 ####[facility]ORATORYCLIA [id number] [address] [place] Clarity (Unsp spec) Dense Turbid Abnormal Clear [facility] Comment on above: Order Comment: Speci men Type: URINE SPECIMENOrdering Facility: [facility] Address: [address] [place] [address] Performed By: #### 2 4356-8, 630-4 ####[facility]ORATORYCLIA [id number] [address] Color (U) [place] Abnormal yellow [facility] Comment on above: Order Comment: Speci men Type: URINE SPECIMENOrdering Facility: [facility] Address: [address] [place] [address] Performed By: #### 2 4356-8, 630-4 ####[facility]ATORYCLIA [id number] [address] Epithelial cells LM.HPF (Urine sed) [#/Area] Few Normal [facility] Comment on above: Order Comment: Speci men Type: URINE SPECIMENOrdering Facility: [facility] Address: [address] [place] [address] Performed By: #### 2 43568, 630-4 ####[facility]ATORYCLIA [id number] [address] [place] Glucose Test strip (U) [Mass/Vol] Negative Normal Trace, Negative [facility] Comment on above: Order Comment: Speci men Type: URINE SPECIMENOrdering Facility: [facility] Address: [address] [place] [address] Performed By: #### 2 4356-8, 630-4 ####[facility]ATORYCLIA [id number] [address] [place] Granular casts (Urine sed) [#/Area] /[LPF] Abnormal 0 /LPF [facility] Comment on above: Order Comment: Speci men Type: URINE SPECIMENOrdering Facility: [facility] Address: [address] [place] [address] Performed By: #### 2 4356-8, 630-4 ####[facility] LABORATORYCLIA [id number] [place] [address] [place] Hemoglobin Ql (U) 3+ Abnormal Negative, Trace [facility] Comment on above: Order Comment: Speci men Type: URINE SPECIMENOrdering Facility: [facility] Address: [address] [place] [address] Performed By: #### 2 4356-8, 630-4 ####[facility]ATORYCLIA [id number] [address] [place] [facility] Ketones Ql (U) 1+ Abnormal Negative, Trace [facility] Comment on above: Order Comment: Speci men Type: URINE SPECIMENOrdering Facility: [facility] Address: [address] [place] [address] Performed By: #### 2 4356-8, 630-4 ####[facility]ORATORYCLIA [id number] [address] [place] Leukocyte esterase Test strip Ql (U) 250 Mayra/uL Abnormal Negative, 25 Mayra/uL [facility] Comment on above: Order Comment: Speci men Type: URINE SPECIMENOrdering Facility: [facility] Address: [address] [place] [address] Performed By: #### 2 4356-8, 630-4 ####[facility]ORATORYCLIA [id number] [address] STATES [facility] Nitrite Ql (U) Negative Normal Negative [facility] Comment on above: Order Comment: Speci men Type: URINE SPECIMENOrdering Facility: [facility] Address: [address] [place] [address] Performed By: #### 2 4356-8, 630-4 ####[facility]ORATORYCLIA [id number] [place] [address] [place] pH (U) 5.0 [pH] Normal 5.0-8.0 [facility] Comment on above: Order Comment: Speci men Type: URINE SPECIMENOrdering Facility: [facility] Address: [address] [place] [address] Performed By: #### 2 4356-8, 630-4 ####[facility]ATORYCLIA [id number] [address] Protein (U) [Mass/Vol] 1+ Abnormal Trace, Negative [facility] Comment on above: Order Comment: Speci men Type: URINE SPECIMENOrdering Facility: [facility] Address: [address] [place] [address] Performed By: #### 2 4356-8, 630-4 ####[facility]ATORYCLIA [id number] [address] STATES [facility] RBC LM.HPF (Urine sed) [#/Area] /[HPF] Abnormal 0-3 /HPF [facility] Comment on above: Order Comment: Speci men Type: URINE SPECIMENOrdering Facility: [facility] Address: [address] [place] [address] Performed By: #### 2 4356-8, 630-4 ####[facility]ATORYCLIA [id number] [address] [place] Specific gravity (U) [Rel density] 1.023 Normal 1.005-1.030 [facility] Comment on above: Order Comment: Speci men Type: URINE SPECIMENOrdering Facility: [facility] Address: [address] [place] [address] Performed By: #### 2 4356-8, 630-4 ####[facility]ATORYCLIA [id number] [address] SPER[place] Present Abnormal None Seen [facility] Comment on above: Order Comment: Speci men Type: URINE SPECIMENOrdering Facility: [facility] Address: [address] [place] [address] Performed By: #### 2 4356-8, 630-4 ####[facility]ATORYCLIA [id number] [address] Urobilinogen Ql (U) Normal Normal Normal [facility] Comment on above: Order Comment: Speci men Type: URINE SPECIMENOrdering Facility: [facility] Address: [address] [place] [address] Performed By: #### 2 4356-8, 630-4 ####[facility]ATORYCLIA [id number] [address] [place] WBC LM.HPF (Urine sed) [#/Area] /[HPF] Abnormal 0-5 /HPF [facility] Comment on above: Order Comment: Speci men Type: URINE SPECIMENOrdering Facility: [facility] Address: [address] [place] [address] Performed By: #### 2 4356-8, 630-4 ####[facility]ATORYCLIA [id number] [address] [place] XR CHEST 1V FRONTALon 2024 XR CHEST 1V FRONTAL Normal [facility] aPTT PPPon 04-13-2025 aPTT Coag (PPP) [Time] 58.9 s High 23.0-32.4 [facility] Comment on above: Order Comment: Speci men Type: BLOOD SPECIMENOrdering Facility: [facility] Address: [address] [place] [address] Performed By: #### 1 4979-9 ####[facility]ATORYCLIA [id number] [address] [place] aPTT Coag (PPP) [Time] 48.9 s High 23.0-32.4 [facility] Comment on above: Order Comment: Speci men Type: BLOOD SPECIMENOrdering Facility: [facility] Address: [address] [place] [address] Performed By: #### 1 4979-9 ####[facility]ATORYCLIA [id number] [address] aPTT Coag (PPP) [Time] 50.1 s High 23.0-32.4 [facility] Comment on above: Order Comment: Speci men Type: BLOOD SPECIMENOrdering Facility: [facility] Address: [address] [place] [address] Performed By: #### 1 4979-9, 63348-9 ####[facility]ATORYCLIA [id number] [address] [place] aPTT Coag (PPP) [Time] 45.7 s High 23.0-32.4 [facility] Comment on above: Order Comment: Speci men Type: BLOOD SPECIMENOrdering Facility: [facility] Address: [address] [place] [address] Performed By: #### 1 4979-9 ####[facility]ORATORYCLIA [id number] [address] [place] ARTERIAL BLOOD GASESon 04-12 Base deficit (BldA) [Moles/Vol] -3 mmol/L Low -2-0 [facility] Comment on above: Order Comment: Speci men Type: ARTERIAL BLOOD SPECIMENOrdering Facility: [facility] Address: [address] [place] [address] Performed By: #### A LLBG ####[facility]ORATORYCLIA [id number] [address] [place] Body temperature 99.5 [degF] Normal [facility] Comment on above: Order Comment: Speci men Type: ARTERIAL BLOOD SPECIMENOrdering Facility: [facility] Address: [address] [place] [address] Performed By: #### A LLBG ####[facility]ORATORYCLIA [id number] [address] [place] Calcium.ionized (BldV) [Mass/Vol] 1.07 mmol/L Low 1.08-1.30 [facility] Comment on above: Order Comment: Speci men Type: ARTERIAL BLOOD SPECIMENOrdering Facility: [facility] Address: [address] [place] [address] Performed By: #### A LLBG ####[facility]ORATORYCLIA [id number] [address] Calcium.ionized adjusted to pH 7.4 (BldA) [Moles/Vol] 1.08 mmol/L Normal 1.08-1.30 [facility] Comment on above: Order Comment: Speci men Type: ARTERIAL BLOOD SPECIMENOrdering Facility: [facility] Address: [address] [place] [address] Performed By: #### A LLBG ####[facility]ORATORYCLIA [id number] [address] Carboxyhemoglobin (BldA) [Mass fraction] 0.9 % Normal 0.0-2.0 [facility] Comment on above: Order Comment: Speci men Type: ARTERIAL BLOOD SPECIMENOrdering Facility: [facility] Address: [address] [place] [address] Result Comment: Carb oxyhemoglobin Reference Range for Smokers: 2.0-8.0% Performed By: #### A LLBG ####[facility]ORATORYCLIA [id number] [address] [place] Chloride [Moles/Vol] 104 mmol/L Normal 97-105 [facility] Comment on above: Order Comment: Speci men Type: ARTERIAL BLOOD SPECIMENOrdering Facility: [facility] Address: [address] [place] [address] Performed By: #### A LLBG ####[facility] LABORATORYCLIA [id number] [address] [place] CO2 (Bld) [Partial pressure] 33 mm Hg Low 36-46 [facility] Comment on above: Order Comment: Speci men Type: ARTERIAL BLOOD SPECIMENOrdering Facility: [facility] Address: [address] [place] [address] Performed By: #### A LLBG ####[facility] LABORATORYCLIA [id number] [address] [place] CO2 adjusted to patient's actual temperature (Bld) [Partial pressure] 33 mmHg Low 36-46 [facility] Comment on above: Order Comment: Speci men Type: ARTERIAL BLOOD SPECIMENOrdering Facility: [facility] Address: [address] [place] [address] Performed By: #### A LLBG ####[facility]ORATORYCLIA [id number] [place] [address] [place] FIO2 40 % Normal [facility] Comment on above: Order Comment: Speci men Type: ARTERIAL BLOOD SPECIMENOrdering Facility: [facility] Address: [address] [place] [address] Performed By: #### A LLBG ####[facility]ORATORYCLIA [id number] [address] [place] Glucose [Mass/Vol] 120 mg/dL High 60-105 [facility] Comment on above: Order Comment: Speci men Type: ARTERIAL BLOOD SPECIMENOrdering Facility: [facility] Address: [address] [place] [address] Performed By: #### A LLBG ####[facility]ORATORYCLIA [id number] [place] [address] [place] HCO3 (Bld) [Moles/Vol] 21 mmol/L Low 22-26 [facility] Comment on above: Order Comment: Speci men Type: ARTERIAL BLOOD SPECIMENOrdering Facility: [facility] Address: [address] [place] [address] Performed By: #### A LLBG ####[facility]ORATORYCLIA [id number] [address] [place] Hematocrit (Bld) [Volume fraction] 25.5 % Low 39.0-51.0 [facility] Comment on above: Order Comment: Speci men Type: ARTERIAL BLOOD SPECIMENOrdering Facility: [facility] Address: [address] [place] [address] Performed By: #### A LLBG ####[facility]ORATORYCLIA [id number] [place] [address] [place] Hemoglobin (Bld) [Mass/Vol] 8.2 g/dL Low 13.0-17.0 [facility] Comment on above: Order Comment: Speci men Type: ARTERIAL BLOOD SPECIMENOrdering Facility: [facility] Address: [address] [place] [address] Performed By: #### A LLBG ####[facility]ORATORYCLIA [id number] [address] [place] INHALED TIDAL VOLUME (ML) 450 Normal [facility] Comment on above: Order Comment: Speci men Type: ARTERIAL BLOOD SPECIMENOrdering Facility: [facility] Address: [address] [place] [address] Performed By: #### A LLBG ####[facility]ORATORYCLIA [id number] [address] [place] INVASIVE VENTILATOR MODE SIMV PRVC or VC+ or APVimv (PC-IMV(1)a,s) Normal [facility] Comment on above: Order Comment: Speci men Type: ARTERIAL BLOOD SPECIMENOrdering Facility: [facility] Address: [address] [place] [address] Performed By: #### A LLBG ####[facility]ORATORYCLIA [id number] [address] [place] Lactate [Moles/Vol] 0.7 mmol/L Normal 0.5-2.2 [facility] Comment on above: Order Comment: Speci men Type: ARTERIAL BLOOD SPECIMENOrdering Facility: [facility] Address: [address] [place] [address] Performed By: #### A LLBG ####[facility]ORATORYCLIA [id number] [address] [place] Methemoglobin (Bld) [Mass fraction] 1.1 % Normal 0.0-1.5 [facility] Comment on above: Order Comment: Speci men Type: ARTERIAL BLOOD SPECIMENOrdering Facility: [facility] Address: [address] [place] [address] Performed By: #### A LLBG ####[facility]ATORYCLIA [id number] [address] O2 THERAPY VENT=Ventilator Normal [facility] Comment on above: Order Comment: Speci men Type: ARTERIAL BLOOD SPECIMENOrdering Facility: [facility] Address: [address] [place] [address] Performed By: #### A LLBG ####[facility]ORATORYCLIA [id number] [address] [place] Oxygen (Bld) [Partial pressure] 107 mm Hg High 85-95 [facility] Comment on above: Order Comment: Speci men Type: ARTERIAL BLOOD SPECIMENOrdering Facility: [facility] Address: [address] [place] [address] Performed By: #### A LLBG ####[facility] LABORATORYCLIA [id number] [address] Oxygen adjusted to patient's actual temperature (Bld) [Partial pressure] 109 mmHg High 85-95 [facility] Comment on above: Order Comment: Speci men Type: ARTERIAL BLOOD SPECIMENOrdering Facility: [facility] Address: [address] [place] [address] Performed By: #### A LLBG ####[facility] LABORATORYCLIA [id number] [address] Oxyhemoglobin (BldA) [Mass fraction] 96 % Normal 95-98 [facility] Comment on above: Order Comment: Speci men Type: ARTERIAL BLOOD SPECIMENOrdering Facility: [facility] Address: [address] [place] [address] Performed By: #### A LLBG ####[facility] LABORATORYCLIA [id number] [address] [place] PEEP/CPAP 16 cmH2O Normal [facility] Comment on above: Order Comment: Speci men Type: ARTERIAL BLOOD SPECIMENOrdering Facility: [facility] Address: [address] [place] [address] Performed By: #### A LLBG ####[facility]ORATORYCLIA [id number] [address] [place] pH (Bld) 7.42 [pH] Normal 7.35-7.45 [facility] Comment on above: Order Comment: Speci men Type: ARTERIAL BLOOD SPECIMENOrdering Facility: [facility] Address: [address] [place] [address] Performed By: #### A LLBG ####[facility]ORATORYCLIA [id number] [address] pH adjusted to patient's actual temperature (Bld) 7.42 Normal 7.35-7.45 [facility] Comment on above: Order Comment: Speci men Type: ARTERIAL BLOOD SPECIMENOrdering Facility: [facility] Address: [address] [place] [address] Performed By: #### A LLBG ####[facility]ORATORYCLIA [id number] [address] PO2 / FIO2 RATIO 268 mmHg Low >300 [facility] Comment on above: Order Comment: Speci men Type: ARTERIAL BLOOD SPECIMENOrdering Facility: [facility] Address: [address] [place] [address] Performed By: #### A LLBG ####[facility]ORATORYCLIA [id number] [address] STATES [facility] Potassium [Moles/Vol] 3.3 mmol/L Low 3.5-5.0 [facility] Comment on above: Order Comment: Speci men Type: ARTERIAL BLOOD SPECIMENOrdering Facility: [facility] Address: [address] [place] [address] Performed By: #### A LLBG ####[facility] LABORATORYCLIA [id number] [address] SET VENTILATOR RESPIRATORY RATE (BPM) 20 BPM Normal [facility] Comment on above: Order Comment: Speci men Type: ARTERIAL BLOOD SPECIMENOrdering Facility: [facility] Address: [address] [place] [address] Performed By: #### A LLBG ####[facility] LABORATORYCLIA [id number] [address] [facility] Sodium [Moles/Vol] 134 mmol/L Low 136-144 [facility] Comment on above: Order Comment: Speci men Type: ARTERIAL BLOOD SPECIMENOrdering Facility: [facility] Address: [address] [place] [address] Performed By: #### A LLBG ####[facility] LABORATORYCLIA [id number] [address] STATES [place] [facility] CBC panel Auto (Bld)on 04-12 Erythrocyte distribution width (RBC) [Ratio] 15.8 % High 11.5-15.0 [facility] Comment on above: Order Comment: Speci men Type: BLOOD SPECIMENOrdering Facility: [facility] Address: [address] [place] [address] Performed By: #### 5 8410-2 ####[facility] LABORATORYCLIA [id number] [address] STATES [facility] Hematocrit (Bld) [Volume fraction] 25.2 % Low 39.0-51.0 [facility] Comment on above: Order Comment: Speci men Type: BLOOD SPECIMENOrdering Facility: [facility] Address: [address] [place] [address] Performed By: #### 5 8410-2 ####[facility] LABORATORYCLIA [id number] [address] [place] [facility] Hemoglobin (Bld) [Mass/Vol] 7.7 g/dL Low 13.0-17.0 [facility] Comment on above: Order Comment: Speci men Type: BLOOD SPECIMENOrdering Facility: [facility] Address: [address] [place] [address] Performed By: #### 5 8410-2 ####[facility] LABORATORYCLIA [id number] [address] [place] MCH (RBC) [Entitic mass] 25.9 pg Low 26.0-34.0 [facility] Comment on above: Order Comment: Speci men Type: BLOOD SPECIMENOrdering Facility: [facility] Address: [address] [place] [address] Performed By: #### 5 8410-2 ####[facility] LABORATORYCLIA [id number] [address] [place] [facility] MCHC (RBC) [Mass/Vol] 30.6 g/dL Normal 30.5-36.0 [facility] Comment on above: Order Comment: Speci men Type: BLOOD SPECIMENOrdering Facility: [facility] Address: [address] [place] [address] Performed By: #### 5 8410-2 ####[facility] LABORATORYCLIA [id number] [address] [place] MCV (RBC) [Entitic vol] 84.8 fL Normal 80.0-100.0 [facility] Comment on above: Order Comment: Speci men Type: BLOOD SPECIMENOrdering Facility: [facility] Address: [address] [place] [address] Performed By: #### 5 8410-2 ####[facility]ORATORYCLIA [id number] [address] [place] Nucleated RBC (Bld) [#/Vol] 10*3/uL Normal <0.01 [facility] Comment on above: Order Comment: Speci men Type: BLOOD SPECIMENOrdering Facility: [facility] Address: [address] [place] [address] Performed By: #### 5 8410-2 ####[facility] LABORATORYCLIA [id number] [address] [place] Platelet mean volume (Bld) [Entitic vol] 10.4 fL Normal 9.0-12.7 [facility] Comment on above: Order Comment: Speci men Type: BLOOD SPECIMENOrdering Facility: [facility] Address: [address] [place] [address] Performed By: #### 5 8410-2 ####[facility] LABORATORYCLIA [id number] [address] [place] Platelets (Bld) [#/Vol] 178 10*3/uL Normal 150-400 [facility] Comment on above: Order Comment: Speci men Type: BLOOD SPECIMENOrdering Facility: [facility] Address: [address] [place] [address] Performed By: #### 5 8410-2 ####[facility] LABORATORYCLIA [id number] [address] OF [facility] RBC (Bld) [#/Vol] 2.97 10*6/uL Low 4.20-6.00 [facility] Comment on above: Order Comment: Speci men Type: BLOOD SPECIMENOrdering Facility: [facility] Address: [address] [place] [address] Performed By: #### 5 8410-2 ####[facility]ORATORYCLIA [id number] [address] WBC (Bld) [#/Vol] 7.52 10*3/uL Normal 3.70-11.00 [facility] Comment on above: Order Comment: Speci men Type: BLOOD SPECIMENOrdering Facility: [facility] Address: [address] [place] [address] Performed By: #### 5 8410-2 ####[facility] LABORATORYCLIA [id number] [address] ECHO WITH AGITATED SALINE CO NTRASTon 04-12-2025 ECHO WITH AGITATED SALINE CONTRAST Normal [facility] GBM IGG AUTOANTIBODYon 04-12 GBM IGG AB, (BEAD) 0 AU/mL Normal 0-19 [facility] Comment on above: Order Comment: Speci men Type: BLOOD SPECIMENOrdering Facility: [facility] Address: [address] [place] [address] Result Comment: INTE RPRETIVE INFORMATION: GBM Ab, [...] confirmation and assessment of renal prognosis.Performed By: [facility] [id number] [place] [address] [id number] Director: Sandoval Gandhi MD, PhDCLIA Number: [id number] Performed By: #### G BMBG ####[facility]ITALIA [id number] [place] [address] NURSING PROGon 04-12-2025 NURSING PROG Normal [facility] Renal function 2000 panelon 04-12-2025 Albumin [Mass/Vol] 2.7 g/dL Low 3.9-4.9 [facility] Comment on above: Order Comment: Speci men Type: BLOOD SPECIMENOrdering Facility: [facility] Address: [address] [place] [address] Performed By: #### 2 4362-6 ####[facility] LABORATORYCLIA [id number] [place] [address] [place] Anion gap [Moles/Vol] 17 mmol/L High 8-15 [facility] Comment on above: Order Comment: Speci men Type: BLOOD SPECIMENOrdering Facility: [facility] Address: [address] [place] [address] Performed By: #### 2 4362-6 ####[facility] LABORATORYCLIA [id number] [place] [address] [place] Calcium [Mass/Vol] 7.9 mg/dL Low 8.5-10.2 [facility] Comment on above: Order Comment: Speci men Type: BLOOD SPECIMENOrdering Facility: [facility] Address: [address] [place] [address] Performed By: #### 2 4362-6 ####[facility]ORATORYCLIA [id number] [place] [address] [place] Chloride [Moles/Vol] 97 mmol/L Low 98-107 [facility] Comment on above: Order Comment: Speci men Type: BLOOD SPECIMENOrdering Facility: [facility] Address: [address] [place] [address] Performed By: #### 2 4362-6 ####[facility]ORATORYCLIA [id number] [place] [address] [place] CO2 [Moles/Vol] 21 mmol/L Low 22-30 [facility] Comment on above: Order Comment: Speci men Type: BLOOD SPECIMENOrdering Facility: [facility] Address: [address] [place] [address] Performed By: #### 2 4362-6 ####[facility]ORATORYCLIA [id number] [place] [address] [place] Creatinine [Mass/Vol] 2.74 mg/dL High 0.73-1.22 [facility] Comment on above: Order Comment: Speci men Type: BLOOD SPECIMENOrdering Facility: [facility] Address: [address] [place] [address] Performed By: #### 2 4362-6 ####[facility]ORATORYCLIA [id number] [address] [place] eGFRcr SerPlBld CKD-EPI 2020 24 mL/min/1.73m??? Low >=60 [facility] Comment on above: Order Comment: Speci men Type: BLOOD SPECIMENOrdering Facility: [facility] Address: [address] [place] [address] Result Comment: Mary Kay mated Glomerular Filtration [...] actual GFR. Performed By: #### 2 4362-6 ####[facility]ORATORYCLIA [id number] [address] [place] Glucose [Mass/Vol] 116 mg/dL High 74-99 [facility] Comment on above: Order Comment: Speci men Type: BLOOD SPECIMENOrdering Facility: [facility] Address: [address] [place], [place] [id number] Result Comment: The [place] Diabetes Association (ADA) provides guidance for cutoff [...] Standards of Medical Care in Diabetes 2016, [place] Diabetes Association. Diabetes Care. 2016.39(Suppl 1). Performed By: #### 2 4362-6 ####[facility]ORATORYCLIA [id number] [place] [address] [place] Phosphate [Mass/Vol] 3.7 mg/dL Normal 2.7-4.8 [facility] Comment on above: Order Comment: Dahian[place] men Type: BLOOD SPECIMENOrdering Facility: [facility] Address: [address] [place] [address] Performed By: #### 2 4362-6 ####[facility]ORATORYCLIA [id number] [place] [address] [place] Potassium [Moles/Vol] 3.4 mmol/L Low 3.7-5.1 [facility] Comment on above: Order Comment: Speci men Type: BLOOD SPECIMENOrdering Facility: [facility] Address: [address] [id number] Performed By: #### 2 4362-6 ####[facility]ORATORYCLIA [id number] [place] [address] [place] Sodium [Moles/Vol] 135 mmol/L Low 136-144 [facility] Comment on above: Order Comment: Speci men Type: BLOOD SPECIMENOrdering Facility: [facility] Address: [address] [place] [address] Performed By: #### 2 4362-6 ####[facility]ORATORYCLIA [id number] [address] Urea nitrogen [Mass/Vol] 25 mg/dL High 9-24 [facility] Comment on above: Order Comment: Speci men Type: BLOOD SPECIMENOrdering Facility: [facility] Address: [address] [place] [address] Performed By: #### 2 4362-6 ####[facility] LABORATORYCLIA [id number] [address] [place] XR CHEST 1V FRONTALon 2024 XR CHEST 1V FRONTAL Normal [facility] XR CHEST 1V FRONTAL Normal [facility] aPTT PPPon 04-12-2025 aPTT Coag (PPP) [Time] 50.1 s High 23.0-32.4 [facility] Comment on above: Order Comment: Speci men Type: BLOOD SPECIMENOrdering Facility: [facility] Address: [address] [place] [address] Performed By: #### 1 4979-9 ####[facility]ORATORYCLIA [id number] [address] aPTT Coag (PPP) [Time] 80.1 s High 23.0-32.4 [facility] Comment on above: Order Comment: Speci men Type: BLOOD SPECIMENOrdering Facility: [facility] Address: [address] [place] [address] Performed By: #### 1 4979-9 ####[facility]ORATORYCLIA [id number] [address] aPTT Coag (PPP) [Time] 47.4 s High 23.0-32.4 [facility] Comment on above: Order Comment: Speci men Type: BLOOD SPECIMENOrdering Facility: [facility] Address: [address] [place] [address] Performed By: #### 1 4979-9 ####[facility]ORATORYCLIA [id number] [place] [address] [place] ALLIED HEALTHon 04-11-2025 ALLIED HEALTH Normal [facility] ALLIED HEALTH Normal [facility] ARTERIAL BLOOD GASESon 04-11 Base deficit (BldA) [Moles/Vol] -3 mmol/L Low -2-0 [facility] Comment on above: Order Comment: Speci men Type: ARTERIAL BLOOD SPECIMENOrdering Facility: [facility] Address: [address] [place] [address] Performed By: #### A LLBG ####[facility]ORATORYCLIA [id number] [address] [place] Body temperature 99.32 [degF] Normal [facility] Comment on above: Order Comment: Speci men Type: ARTERIAL BLOOD SPECIMENOrdering Facility: [facility] Address: [address] [place] [address] Performed By: #### A LLBG ####[facility]ORATORYCLIA [id number] [address] [place] Calcium.ionized (BldV) [Mass/Vol] 1.06 mmol/L Low 1.08-1.30 [facility] Comment on above: Order Comment: Speci men Type: ARTERIAL BLOOD SPECIMENOrdering Facility: [facility] Address: [address] [place] [address] Performed By: #### A LLBG ####[facility]ORATORYCLIA [id number] [address] [place] Calcium.ionized adjusted to pH 7.4 (BldA) [Moles/Vol] 1.04 mmol/L Low 1.08-1.30 [facility] Comment on above: Order Comment: Speci men Type: ARTERIAL BLOOD SPECIMENOrdering Facility: [facility] Address: [address] [place] [address] Performed By: #### A LLBG ####[facility]ORATORYCLIA [id number] [address] [place] Carboxyhemoglobin (BldA) [Mass fraction] 0.8 % Normal 0.0-2.0 [facility] Comment on above: Order Comment: Speci men Type: ARTERIAL BLOOD SPECIMENOrdering Facility: [facility] Address: [address] [place] [address] Result Comment: Carb oxyhemoglobin Reference Range for Smokers: 2.0-8.0% Performed By: #### A LLBG ####[facility]ORATORYCLIA [id number] [address] [place] Chloride [Moles/Vol] 98 mmol/L Normal 97-105 [facility] Comment on above: Order Comment: Speci men Type: ARTERIAL BLOOD SPECIMENOrdering Facility: [facility] Address: [address] [place] [address] Performed By: #### A LLBG ####[facility]ORATORYCLIA [id number] [address] CO2 (Bld) [Partial pressure] 39 mm Hg Normal 36-46 [facility] Comment on above: Order Comment: Speci men Type: ARTERIAL BLOOD SPECIMENOrdering Facility: [facility] Address: [address] [place] [address] Performed By: #### A LLBG ####[facility] LABORATORYCLIA [id number] [address] CO2 adjusted to patient's actual temperature (Bld) [Partial pressure] 40 mmHg Normal 36-46 [facility] Comment on above: Order Comment: Speci men Type: ARTERIAL BLOOD SPECIMENOrdering Facility: [facility] Address: [address] [place] [address] Performed By: #### A LLBG ####[facility]ORATORYCLIA [id number] [address] [place] FIO2 70 % Normal [facility] Comment on above: Order Comment: Speci men Type: ARTERIAL BLOOD SPECIMENOrdering Facility: [facility] Address: [address] [place] [address] Performed By: #### A LLBG ####[facility] LABORATORYCLIA [id number] [address] [place] Glucose [Mass/Vol] 202 mg/dL High 60-105 [facility] Comment on above: Order Comment: Speci men Type: ARTERIAL BLOOD SPECIMENOrdering Facility: [facility] Address: [address] [place] [address] Performed By: #### A LLBG ####[facility]ATORYCLIA [id number] [place] [address] [place] HCO3 (Bld) [Moles/Vol] 22 mmol/L Normal 22-26 [facility] Comment on above: Order Comment: Speci men Type: ARTERIAL BLOOD SPECIMENOrdering Facility: [facility] Address: [address] [place] [address] Performed By: #### A LLBG ####[facility]ATORYCLIA [id number] [address] [place] Hematocrit (Bld) [Volume fraction] 21.6 % Low 39.0-51.0 [facility] Comment on above: Order Comment: Speci men Type: ARTERIAL BLOOD SPECIMENOrdering Facility: [facility] Address: [address] [place] [address] Performed By: #### A LLBG ####[facility]ATORYCLIA [id number] [address] [place] Hemoglobin (Bld) [Mass/Vol] 6.9 g/dL Low 13.0-17.0 [facility] Comment on above: Order Comment: Speci men Type: ARTERIAL BLOOD SPECIMENOrdering Facility: [facility] Address: [address] [place] [address] Performed By: #### A LLBG ####[facility]ORATORYCLIA [id number] [place] [address] [place] INHALED TIDAL VOLUME (ML) 450 Normal [facility] Comment on above: Order Comment: Speci men Type: ARTERIAL BLOOD SPECIMENOrdering Facility: [facility] Address: [address] [place] [address] Performed By: #### A LLBG ####[facility]ORATORYCLIA [id number] [address] [place] Lactate [Moles/Vol] 0.9 mmol/L Normal 0.5-2.2 [facility] Comment on above: Order Comment: Speci men Type: ARTERIAL BLOOD SPECIMENOrdering Facility: [facility] Address: [address] [place] [address] Performed By: #### A LLBG ####[facility]ORATORYCLIA [id number] [address] Methemoglobin (Bld) [Mass fraction] 0.9 % Normal 0.0-1.5 [facility] Comment on above: Order Comment: Speci men Type: ARTERIAL BLOOD SPECIMENOrdering Facility: [facility] Address: [address] [place] [address] Performed By: #### A LLBG ####[facility]ORATORYCLIA [id number] [address] O2 THERAPY VENT=Ventilator Normal [facility] Comment on above: Order Comment: Speci men Type: ARTERIAL BLOOD SPECIMENOrdering Facility: [facility] Address: [address] [place] [address] Performed By: #### A LLBG ####[facility]ATORYCLIA [id number] [address] Oxygen (Bld) [Partial pressure] 118 mm Hg High 85-95 [facility] Comment on above: Order Comment: Speci men Type: ARTERIAL BLOOD SPECIMENOrdering Facility: [facility] Address: [address] [place] [address] Performed By: #### A LLBG ####[facility]ORATORYCLIA [id number] [address] Oxygen adjusted to patient's actual temperature (Bld) [Partial pressure] 120 mmHg High 85-95 [facility] Comment on above: Order Comment: Speci men Type: ARTERIAL BLOOD SPECIMENOrdering Facility: [facility] Address: [address] [place] [address] Performed By: #### A LLBG ####[facility]ORATORYCLIA [id number] [address] Oxyhemoglobin (BldA) [Mass fraction] 96 % Normal 95-98 [facility] Comment on above: Order Comment: Speci men Type: ARTERIAL BLOOD SPECIMENOrdering Facility: [facility] Address: [address] [place] [address] Performed By: #### A LLBG ####[facility]ATORYCLIA [id number] [address] [place] PEEP/CPAP 14 cmH2O Normal [facility] Comment on above: Order Comment: Speci men Type: ARTERIAL BLOOD SPECIMENOrdering Facility: [facility] Address: [address] [place] [address] Performed By: #### A LLBG ####[facility]ATORYCLIA [id number] [address] [place] pH (Bld) 7.37 [pH] Normal 7.35-7.45 [facility] Comment on above: Order Comment: Speci men Type: ARTERIAL BLOOD SPECIMENOrdering Facility: [facility] Address: [address] [place] [address] Performed By: #### A LLBG ####[facility]ATORYCLIA [id number] [address] pH adjusted to patient's actual temperature (Bld) 7.36 Normal 7.35-7.45 [facility] Comment on above: Order Comment: Speci men Type: ARTERIAL BLOOD SPECIMENOrdering Facility: [facility] Address: [address] [place] [address] Performed By: #### A LLBG ####[facility] LABORATORYCLIA [id number] [address] [place] PO2 / FIO2 RATIO 169 mmHg Low >300 [facility] Comment on above: Order Comment: Speci men Type: ARTERIAL BLOOD SPECIMENOrdering Facility: [facility] Address: [address] [place] [address] Performed By: #### A LLBG ####[facility]ORATORYCLIA [id number] [place] [address] Potassium [Moles/Vol] 3.3 mmol/L Low 3.5-5.0 [facility] Comment on above: Order Comment: Speci men Type: ARTERIAL BLOOD SPECIMENOrdering Facility: [facility] Address: [address] [place] [address] Performed By: #### A LLBG ####[facility]ATORYCLIA [id number] [address] SET VENTILATOR RESPIRATORY RATE (BPM) 20 BPM Normal [facility] Comment on above: Order Comment: Speci men Type: ARTERIAL BLOOD SPECIMENOrdering Facility: [facility] Address: [address] [place] [address] Performed By: #### A LLBG ####[facility]ORATORYCLIA [id number] [address] STATES [facility] Sodium [Moles/Vol] 135 mmol/L Low 136-144 [facility] Comment on above: Order Comment: Speci men Type: ARTERIAL BLOOD SPECIMENOrdering Facility: [facility] Address: [address] [place] [address] Performed By: #### A LLBG ####[facility]ATORYCLIA [id number] [address] CBC panel Auto (Bld)on 04-11 Erythrocyte distribution width (RBC) [Ratio] 14.9 % Normal 11.5-15.0 [facility] Comment on above: Order Comment: Speci men Type: BLOOD SPECIMENOrdering Facility: [facility] Address: [address] [place] [address] Performed By: #### 5 8410-2 ####[facility]ORATORYCLIA [id number] [address] Hematocrit (Bld) [Volume fraction] 21.3 % Low 39.0-51.0 [facility] Comment on above: Order Comment: Speci men Type: BLOOD SPECIMENOrdering Facility: [facility] Address: [address] [place] [address] Performed By: #### 5 8410-2 ####[facility] LABORATORYCLIA [id number] [address] [facility] Hemoglobin (Bld) [Mass/Vol] 6.5 g/dL Low 13.0-17.0 [facility] Comment on above: Order Comment: Speci men Type: BLOOD SPECIMENOrdering Facility: [facility] Address: [address] [place], [place] [address] Performed By: #### 5 8410-2 ####[facility] LABORATORYCLIA [id number] [address] STATES [facility] MCH (RBC) [Entitic mass] 26.2 pg Normal 26.0-34.0 [facility] Comment on above: Order Comment: Speci men Type: BLOOD SPECIMENOrdering Facility: [facility] Address: [address] [place] [address] Performed By: #### 5 8410-2 ####[facility] LABORATORYCLIA [id number] [address] MCHC (RBC) [Mass/Vol] 30.5 g/dL Normal 30.5-36.0 [facility] Comment on above: Order Comment: Speci men Type: BLOOD SPECIMENOrdering Facility: [facility] Address: [address] [place] [address] Performed By: #### 5 8410-2 ####[facility] LABORATORYCLIA [id number] [address] MCV (RBC) [Entitic vol] 85.9 fL Normal 80.0-100.0 [facility] Comment on above: Order Comment: Speci men Type: BLOOD SPECIMENOrdering Facility: [facility] Address: [address] [place] [address] Performed By: #### 5 8410-2 ####[facility] LABORATORYCLIA [id number] [address] Nucleated RBC (Bld) [#/Vol] 10*3/uL Normal <0.01 [facility] Comment on above: Order Comment: Speci men Type: BLOOD SPECIMENOrdering Facility: [facility] Address: [address] [place] [address] Performed By: #### 5 8410-2 ####[facility] LABORATORYCLIA [id number] [address] Platelet mean volume (Bld) [Entitic vol] 10.5 fL Normal 9.0-12.7 [facility] Comment on above: Order Comment: Speci men Type: BLOOD SPECIMENOrdering Facility: [facility] Address: [address] [place] [address] Performed By: #### 5 8410-2 ####[facility] LABORATORYCLIA [id number] [address] [place] Platelets (Bld) [#/Vol] 190 10*3/uL Normal 150-400 [facility] Comment on above: Order Comment: Speci men Type: BLOOD SPECIMENOrdering Facility: [facility] Address: [address] [place] [address] Performed By: #### 5 8410-2 ####[facility] LABORATORYCLIA [id number] [address] [place] RBC (Bld) [#/Vol] 2.48 10*6/uL Low 4.20-6.00 [facility] Comment on above: Order Comment: Speci men Type: BLOOD SPECIMENOrdering Facility: [facility] Address: [address] [place] [address] Performed By: #### 5 8410-2 ####[facility] LABORATORYCLIA [id number] [address] [place] WBC (Bld) [#/Vol] 7.10 10*3/uL Normal 3.70-11.00 [facility] Comment on above: Order Comment: Speci men Type: BLOOD SPECIMENOrdering Facility: [facility] Address: [address] [place] [address] Performed By: #### 5 8410-2 ####[facility] LABORATORYCLIA [id number] [address] [place] CONSULT PROGon 04-11-2025 CONSULT PROG Normal [facility] CONSULT PROG Normal [facility] CRP [Mass/Vol] 15.8 mg/dL High <0.9 [facility] Comment on above: Order Comment: Speci men Type: BLOOD SPECIMENOrdering Facility: [facility] Address: [address] [place] [address] Performed By: #### 1 9123-9, 90518-5, 1988-01, ####[facility]ORATORYCLIA [id number] [address] [place] CHEST WO IVCONon 04-11-[address] CHEST WO IVCON Normal [facility] Hgb Bld[facility] Hemoglobin (Bld) [Mass/Vol] 7.8 g/dL Low 13.0-17.0 [facility] Comment on above: Order Comment: Speci men Type: BLOOD SPECIMENOrdering Facility: [facility] Address: [address] [place] [address] Performed By: #### 7 18-7 ####[facility] LABORATORYCLIA [id number] [address] [place] [facility] Magnesium [Mass/Vol] 2.6 mg/dL High 1.7-2.3 [facility] Comment on above: Order Comment: Speci men Type: BLOOD SPECIMENOrdering Facility: [facility] Address: [address] [place] [address] Performed By: #### 1 9123-9, 78016-3, 1988-01, ####[facility]ORATORYCLIA [id number] [address] [place] NT-proBNP SerPl-ncon 04-11 Natriuretic peptide.B prohormone N-Terminal [Mass/Vol] 56176 pg/mL High <125 [facility] Comment on above: Order Comment: Speci men Type: BLOOD SPECIMENOrdering Facility: [facility] Address: [address] [place] [address] Performed By: #### 1 9123-9, 06271-1, 1988-01, ####[facility]ORATORYCLIA [id number] [place] [id number] [place] NURSING PROGon 04-11-2025 NURSING PROG Normal [facility] Renal function 2000 panelon 04-11-2025 Albumin [Mass/Vol] 3.0 g/dL Low 3.9-4.9 [facility] Comment on above: Order Comment: Speci men Type: BLOOD SPECIMENOrdering Facility: [facility] Address: [address] [place] [address] Performed By: #### 1 9123-9, 68851-4, 1988-01, ####[facility]ORATORYCLIA [id number] [place] [address] [place] Anion gap [Moles/Vol] 20 mmol/L High 8-15 [facility] Comment on above: Order Comment: Speci men Type: BLOOD SPECIMENOrdering Facility: [facility] Address: [address] [place] [address] Performed By: #### 1 9123-9, 26159-9, 1988-01, ####[facility]ATORYCLIA [id number] [place] [address] [place] Calcium [Mass/Vol] 7.9 mg/dL Low 8.5-10.2 [facility] Comment on above: Order Comment: Speci men Type: BLOOD SPECIMENOrdering Facility: [facility] Address: [address] [place] [address] Performed By: #### 1 9123-9, 61729-8, 1988-01, ####[facility]ORATORYCLIA [id number] [place] [id number] [place] Chloride [Moles/Vol] 96 mmol/L Low 98-107 [facility] Comment on above: Order Comment: Speci men Type: BLOOD SPECIMENOrdering Facility: [facility] Address: [address] [place] [address] Performed By: #### 1 9123-9, 19866-5, ####[facility]PITALIA [id number] [place] [address] [place] CO2 [Moles/Vol] 21 mmol/L Low 22-30 [facility] Comment on above: Order Comment: Speci men Type: BLOOD SPECIMENOrdering Facility: [facility] Address: [address] [place] [address] Performed By: #### 1 9123-9, 48980-4, ####[facility]PITALIA [id number] [place] [address] [place] Creatinine [Mass/Vol] 4.45 mg/dL High 0.73-1.22 [facility] Comment on above: Order Comment: Speci men Type: BLOOD SPECIMENOrdering Facility: [facility] Address: [address] [place] [address] Performed By: #### 1 9123-9, 02917-5, ####[facility]PITALIA [id number] [place] [address] [place] eGFRcr SerPlBld CKD-EPI 2020 13 mL/min/1.73m??? Low >=60 [facility] Comment on above: Order Comment: Speci men Type: BLOOD SPECIMENOrdering Facility: [facility] Address: [address] [place] [address] Result Comment: Mary Kay mated Glomerular Filtration [...] actual GFR. Performed By: #### 1 9123-9, 89738-5, ####[facility]ORATORYCLIA [id number] [place] [address] [place] Glucose [Mass/Vol] 135 mg/dL High 74-99 [facility] Comment on above: Order Comment: Specmarleny men Type: BLOOD SPECIMENOrdering Facility: [facility] Address: [address] [place] [address] Result Comment: The [place] Diabetes Association (ADA) provides guidance for cutoff [...] Standards of Medical Care in Diabetes 2016, [place] Diabetes Association. Diabetes Care. 2016.39(Suppl 1). Performed By: #### 1 9123-9, 58687-9, ####[facility]ATORYCLIA [id number] [place] [address] [place] Phosphate [Mass/Vol] 5.5 mg/dL High 2.7-4.8 [facility] Comment on above: Order Comment: Jose Cruz johnson Type: BLOOD SPECIMENOrdering Facility: [facility] Address: [address] [place] [address] Performed By: #### 1 9123-9, 43322-4, ####[facility]ATORYCLIA [id number] [place] [address] [place] Potassium [Moles/Vol] 3.3 mmol/L Low 3.7-5.1 [facility] Comment on above: Order Comment: Jose Cruz johnson Type: BLOOD SPECIMENOrdering Facility: [facility] Address: [address] [place] [address] Performed By: #### 1 9123-9, 42983-2, ####[facility]ORATORYCLIA [id number] [address] [place] Sodium [Moles/Vol] 137 mmol/L Normal 136-144 [facility] Comment on above: Order Comment: Speci men Type: BLOOD SPECIMENOrdering Facility: [facility] Address: [address] [place] [address] Performed By: #### 1 9123-9, 75981-7, 1988-01, ####[facility]ORATORYCLIA [id number] [place] [address] [place] Urea nitrogen [Mass/Vol] 41 mg/dL High 9-24 [facility] Comment on above: Order Comment: Speci men Type: BLOOD SPECIMENOrdering Facility: [facility] Address: [address] [place] [address] Performed By: #### 1 9123-9, 96899-2, 1988-01, ####[facility]ORATORYCLIA [id number] [address] [place] Resp path 12b Pnl Spec JUAN F+p robeon 04-11-2025 Respiratory pathogens DNA and RNA 12b panel JUAN F+probe (Unsp spec) Normal [facility] Comment on above: Performed By: #### 6 0566-7 ####[facility]ORATORYCLIA [id number] [address] [place] TYPE + SCREENon 04-11-2025 ABO O Normal [facility] Comment on above: Order Comment: Speci men Type: BLOOD SPECIMENOrdering Facility: [facility] Address: [address] [place] [address] Performed By: #### T SCR ####[facility] BLOOD BANKCLIA [id number] [address] [place] Rh Nom (Bld) Positive Normal [facility] Comment on above: Order Comment: Speci men Type: BLOOD SPECIMENOrdering Facility: [facility] Address: [address] [place] [address] Performed By: #### T SCR ####[facility]LOOD BANKCLIA [id number] [address] STATES OF [facility] TYPE AND SCREEN EXPIRATION 04/14/2025 23:59 Normal [facility] Comment on above: Order Comment: Speci men Type: BLOOD SPECIMENOrdering Facility: [facility] Address: [address] [place] [address] Performed By: #### T SCR ####[facility]LOOD BANKCLIA [id number] [address] STATES [place] [facility] XR ABDOMEN 1V SUPINEon 04-11 XR ABDOMEN 1V SUPINE Normal [facility] XR CHEST 1V FRONTALon 2024 XR CHEST 1V FRONTAL Normal [facility] XR CHEST 1V FRONTAL Normal [facility] aPTT PPPon 04-11-2025 aPTT Coag (PPP) [Time] 53.6 s High 23.0-32.4 [facility] Comment on above: Order Comment: Speci men Type: BLOOD SPECIMENOrdering Facility: [facility] Address: [address] [place] [address] Performed By: #### 1 4979-9 ####[facility]ORATORYCLIA [id number] [address] BETINA BY IFA SCREENon 04-10-20 Nuclear Ab Ql (S) Negative Normal Negative [facility] Comment on above: Order Comment: Speci men Type: BLOOD SPECIMENOrdering Facility: [facility] Address: [address] [place] [address] Result Comment: Anti -nuclear antibody test is used as an aid in diagnosis of systemic autoimmune diseases. Where positive and clinically warranted, follow-up using disease-specific testing is recommended. Low positive titers are not uncommon with advanced age, certain chronic infections, and malignancies among others.Test methodology: Indirect fluorescence immunoassay (IFA) using HEp-2 cells. Performed By: #### A NAIFS ####[facility] LABCLIA [id number] [address] [place] ARTERIAL BLOOD GASESon 04-10 Base deficit (BldA) [Moles/Vol] -5 mmol/L Low -2-0 [facility] Comment on above: Order Comment: Speci men Type: ARTERIAL BLOOD SPECIMENOrdering Facility: [facility] Address: [address] [place] [address] Performed By: #### A LLBG ####[facility]ORATORYCLIA [id number] [address] Body temperature 97.7 [degF] Normal [facility] Comment on above: Order Comment: Speci men Type: ARTERIAL BLOOD SPECIMENOrdering Facility: [facility] Address: [address] [place] [address] Performed By: #### A LLBG ####[facility]ATORYCLIA [id number] [address] Calcium.ionized (BldV) [Mass/Vol] 1.02 mmol/L Low 1.08-1.30 [facility] Comment on above: Order Comment: Speci men Type: ARTERIAL BLOOD SPECIMENOrdering Facility: [facility] Address: [address] [place] [address] Performed By: #### A LLBG ####[facility]ATORYCLIA [id number] [address] Calcium.ionized adjusted to pH 7.4 (BldA) [Moles/Vol] 0.99 mmol/L Low 1.08-1.30 [facility] Comment on above: Order Comment: Speci men Type: ARTERIAL BLOOD SPECIMENOrdering Facility: [facility] Address: [address] [place] [address] Performed By: #### A LLBG ####[facility]ORATORYCLIA [id number] [address] Carboxyhemoglobin (BldA) [Mass fraction] 1.2 % Normal 0.0-2.0 [facility] Comment on above: Order Comment: Speci men Type: ARTERIAL BLOOD SPECIMENOrdering Facility: [facility] Address: [address] [place] [address] Result Comment: Carb oxyhemoglobin Reference Range for Smokers: 2.0-8.0% Performed By: #### A LLBG ####[facility]ORATORYCLIA [id number] [address] STATES [place] [facility] Chloride [Moles/Vol] 98 mmol/L Normal 97-105 [facility] Comment on above: Order Comment: Speci men Type: ARTERIAL BLOOD SPECIMENOrdering Facility: [facility] Address: [address] [place] [address] Performed By: #### A LLBG ####[facility]ORATORYCLIA [id number] [address] [place] CO2 (Bld) [Partial pressure] 38 mm Hg Normal 36-46 [facility] Comment on above: Order Comment: Speci men Type: ARTERIAL BLOOD SPECIMENOrdering Facility: [facility] Address: [address] [place] [address] Performed By: #### A LLBG ####[facility]ORATORYCLIA [id number] [address] CO2 adjusted to patient's actual temperature (Bld) [Partial pressure] 37 mmHg Normal 36-46 [facility] Comment on above: Order Comment: Speci men Type: ARTERIAL BLOOD SPECIMENOrdering Facility: [facility] Address: [address] [place] [address] Performed By: #### A LLBG ####[facility]ORATORYCLIA [id number] [address] [place] FIO2 80 % Normal [facility] Comment on above: Order Comment: Speci men Type: ARTERIAL BLOOD SPECIMENOrdering Facility: [facility] Address: [address] [place] [address] Performed By: #### A LLBG ####[facility]ORATORYCLIA [id number] [address] [place] Glucose [Mass/Vol] 129 mg/dL High 60-105 [facility] Comment on above: Order Comment: Speci men Type: ARTERIAL BLOOD SPECIMENOrdering Facility: [facility] Address: [address] [place] [address] Performed By: #### A LLBG ####[facility]ORATORYCLIA [id number] [address] [place] HCO3 (Bld) [Moles/Vol] 20 mmol/L Low 22-26 [facility] Comment on above: Order Comment: Speci men Type: ARTERIAL BLOOD SPECIMENOrdering Facility: [facility] Address: [address] [place] [address] Performed By: #### A LLBG ####[facility]ORATORYCLIA [id number] [address] [place] Hematocrit (Bld) [Volume fraction] 22.5 % Low 39.0-51.0 [facility] Comment on above: Order Comment: Speci men Type: ARTERIAL BLOOD SPECIMENOrdering Facility: [facility] Address: [address] [place] [address] Performed By: #### A LLBG ####[facility]ORATORYCLIA [id number] [address] [place] Hemoglobin (Bld) [Mass/Vol] 7.2 g/dL Low 13.0-17.0 [facility] Comment on above: Order Comment: Speci men Type: ARTERIAL BLOOD SPECIMENOrdering Facility: [facility] Address: [address] [place] [address] Performed By: #### A LLBG ####[facility]ATORYCLIA [id number] [address] [place] INHALED TIDAL VOLUME (ML) 450 Normal [facility] Comment on above: Order Comment: Speci men Type: ARTERIAL BLOOD SPECIMENOrdering Facility: [facility] Address: [address] [place] [address] Performed By: #### A LLBG ####[facility]ATORYCLIA [id number] [address] [place] Lactate [Moles/Vol] 0.9 mmol/L Normal 0.5-2.2 [facility] Comment on above: Order Comment: Speci men Type: ARTERIAL BLOOD SPECIMENOrdering Facility: [facility] Address: [address] [place] [address] Performed By: #### A LLBG ####[facility]ORATORYCLIA [id number] [address] Methemoglobin (Bld) [Mass fraction] 1.2 % Normal 0.0-1.5 [facility] Comment on above: Order Comment: Speci men Type: ARTERIAL BLOOD SPECIMENOrdering Facility: [facility] Address: [address] [place] [address] Performed By: #### A LLBG ####[facility]ORATORYCLIA [id number] [address] O2 THERAPY VENT=Ventilator Normal [facility] Comment on above: Order Comment: Speci men Type: ARTERIAL BLOOD SPECIMENOrdering Facility: [facility] Address: [address] [place] [address] Performed By: #### A LLBG ####[facility]ORATORYCLIA [id number] [address] [place] Oxygen (Bld) [Partial pressure] 142 mm Hg High 85-95 [facility] Comment on above: Order Comment: Speci men Type: ARTERIAL BLOOD SPECIMENOrdering Facility: [facility] Address: [address] [place] [address] Performed By: #### A LLBG ####[facility]ATORYCLIA [id number] [address] Oxygen adjusted to patient's actual temperature (Bld) [Partial pressure] 139 mmHg High 85-95 [facility] Comment on above: Order Comment: Speci men Type: ARTERIAL BLOOD SPECIMENOrdering Facility: [facility] Address: [address] [place] [address] Performed By: #### A LLBG ####[facility]ORATORYCLIA [id number] [address] [place] Oxyhemoglobin (BldA) [Mass fraction] 97 % Normal 95-98 [facility] Comment on above: Order Comment: Speci men Type: ARTERIAL BLOOD SPECIMENOrdering Facility: [facility] Address: [address] [place] [address] Performed By: #### A LLBG ####[facility]ORATORYCLIA [id number] [address] PEEP/CPAP 16 cmH2O Normal [facility] Comment on above: Order Comment: Speci men Type: ARTERIAL BLOOD SPECIMENOrdering Facility: [facility] Address: [address] [place] [address] Performed By: #### A LLBG ####[facility]ATORYCLIA [id number] [address] [place] pH (Bld) 7.35 [pH] Normal 7.35-7.45 [facility] Comment on above: Order Comment: Speci men Type: ARTERIAL BLOOD SPECIMENOrdering Facility: [facility] Address: [address] [place] [address] Performed By: #### A LLBG ####[facility]ORATORYCLIA [id number] [address] pH adjusted to patient's actual temperature (Bld) 7.36 Normal 7.35-7.45 [facility] Comment on above: Order Comment: Speci men Type: ARTERIAL BLOOD SPECIMENOrdering Facility: [facility] Address: [address] [place] [address] Performed By: #### A LLBG ####[facility]ORATORYCLIA [id number] [address] [place] PO2 / FIO2 RATIO 178 mmHg Low >300 [facility] Comment on above: Order Comment: Speci men Type: ARTERIAL BLOOD SPECIMENOrdering Facility: [facility] Address: [address] [place] [address] Performed By: #### A LLBG ####[facility]ATORYCLIA [id number] [address] Potassium [Moles/Vol] 3.8 mmol/L Normal 3.5-5.0 [facility] Comment on above: Order Comment: Speci men Type: ARTERIAL BLOOD SPECIMENOrdering Facility: [facility] Address: [address] [place] [address] Performed By: #### A LLBG ####[facility]ORATORYCLIA [id number] [address] SET VENTILATOR RESPIRATORY RATE (BPM) 20 BPM Normal [facility] Comment on above: Order Comment: Speci men Type: ARTERIAL BLOOD SPECIMENOrdering Facility: [facility] Address: [address] [place] [address] Performed By: #### A LLBG ####[facility]ORATORYCLIA [id number] [place] [address] [place] Sodium [Moles/Vol] 131 mmol/L Low 136-144 [facility] Comment on above: Order Comment: Speci men Type: ARTERIAL BLOOD SPECIMENOrdering Facility: [facility] Address: [address] [place] [address] Performed By: #### A LLBG ####[facility]ORATORYCLIA [id number] [address] [place] C3 SerPl-mCncon 04-10-2025 Complement C3 [Mass/Vol] 128 mg/dL Normal 86-166 [facility] Comment on above: Order Comment: Speci men Type: BLOOD SPECIMENOrdering Facility: [facility] Address: [address] [place] [address] Performed By: #### 4 485-9, 4498-2 ####[facility] LABCLIA [id number] [place] [address] [place] C4 SerPl-mCncon 04-10-2025 Complement C4 [Mass/Vol] 27 mg/dL Normal 13-46 [facility] Comment on above: Order Comment: Speci men Type: BLOOD SPECIMENOrdering Facility: [facility] Address: [address] [place] [address] Performed By: #### 4 485-9, 4498-2 ####[facility] LABCLIA [id number] [place] [address] [place] CBC panel Auto (Bld)on 04-10 Erythrocyte distribution width (RBC) [Ratio] 14.6 % Normal 11.5-15.0 [facility] Comment on above: Order Comment: Speci men Type: BLOOD SPECIMENOrdering Facility: [facility] Address: [address] [place] [address] Performed By: #### 5 8410-2 ####[facility]ORATORYCLIA [id number] [address] Hematocrit (Bld) [Volume fraction] 24.0 % Low 39.0-51.0 [facility] Comment on above: Order Comment: Speci men Type: BLOOD SPECIMENOrdering Facility: [facility] Address: [address] [place] [address] Performed By: #### 5 8410-2 ####[facility]ORATORYCLIA [id number] [address] [place] [facility] Hemoglobin (Bld) [Mass/Vol] 7.1 g/dL Low 13.0-17.0 [facility] Comment on above: Order Comment: Speci men Type: BLOOD SPECIMENOrdering Facility: [facility] Address: [address] [place] [address] Performed By: #### 5 8410-2 ####[facility]ORATORYCLIA [id number] [address] [place] MCH (RBC) [Entitic mass] 25.7 pg Low 26.0-34.0 [facility] Comment on above: Order Comment: Speci men Type: BLOOD SPECIMENOrdering Facility: [facility] Address: [address] [place] [address] Performed By: #### 5 8410-2 ####[facility]ORATORYCLIA [id number] [address] [place] MCHC (RBC) [Mass/Vol] 29.6 g/dL Low 30.5-36.0 [facility] Comment on above: Order Comment: Speci men Type: BLOOD SPECIMENOrdering Facility: [facility] Address: [address] [place] [address] Performed By: #### 5 8410-2 ####[facility] LABORATORYCLIA [id number] [address] MCV (RBC) [Entitic vol] 87.0 fL Normal 80.0-100.0 [facility] Comment on above: Order Comment: Speci men Type: BLOOD SPECIMENOrdering Facility: [facility] Address: [address] [place] [address] Performed By: #### 5 8410-2 ####[facility] LABORATORYCLIA [id number] [address] [place] Nucleated RBC (Bld) [#/Vol] 10*3/uL Normal <0.01 [facility] Comment on above: Order Comment: Speci men Type: BLOOD SPECIMENOrdering Facility: [facility] Address: [address] [place] [address] Performed By: #### 5 8410-2 ####[facility] LABORATORYCLIA [id number] [address] Platelet mean volume (Bld) [Entitic vol] 10.6 fL Normal 9.0-12.7 [facility] Comment on above: Order Comment: Speci men Type: BLOOD SPECIMENOrdering Facility: [facility] Address: [address] [place] [address] Performed By: #### 5 8410-2 ####[facility]ORATORYCLIA [id number] [address] [place] Platelets (Bld) [#/Vol] 221 10*3/uL Normal 150-400 [facility] Comment on above: Order Comment: Speci men Type: BLOOD SPECIMENOrdering Facility: [facility] Address: [address] [place] [address] Performed By: #### 5 8410-2 ####[facility]ORATORYCLIA [id number] [address] [place] RBC (Bld) [#/Vol] 2.76 10*6/uL Low 4.20-6.00 [facility] Comment on above: Order Comment: Speci men Type: BLOOD SPECIMENOrdering Facility: [facility] Address: [address] [place] [address] Performed By: #### 5 8410-2 ####[facility]ORATORYCLIA [id number] [place] [address] [place] WBC (Bld) [#/Vol] 8.97 10*3/uL Normal 3.70-11.00 [facility] Comment on above: Order Comment: Speci men Type: BLOOD SPECIMENOrdering Facility: [facility] Address: [address] [place] [address] Performed By: #### 5 8410-2 ####[facility]ATORYCLIA [id number] [place] [address] [place] CONSULT PROGon 04-10-2025 CONSULT PROG Normal [facility] HBV surface Ag Ser Qlon 03-21 HBV surface Ag Ql (S) Non-Reactive Normal Nonreactive [facility] Comment on above: Order Comment: Speci men Type: BLOOD SPECIMENOrdering Facility: [facility] Address: [address] [place] [address] Performed By: #### 5 195-3 ####[facility]ATORYCLIA [id number] [place] [address] [place] Myeloperoxidase Ab Ser-aCnco n 04-10-2025 Myeloperoxidase Ab Qn (S) <0.2 Normal <1.0 [facility] Comment on above: Order Comment: Speci men Type: BLOOD SPECIMENOrdering Facility: [facility] Address: [address] [place] [address] Performed By: #### 6 969-0, ANCAC ####[facility] LABCLIA [id number] [place] [address] [place] NUTRITIONon 04-10-2025 NUTRITION Normal [facility] PROTEINASE 3 ANTIBODYon 03-21 Proteinase 3 Ab Qn (S) <0.2 Normal <1.0 [facility] Comment on above: Order Comment: Speci men Type: BLOOD SPECIMENOrdering Facility: [facility] Address: [address] [place] [address] Performed By: #### 6 969-0, [facility] ####[facility] LABCLIA [id number] [place] [id number] [place] Renal function 2000 panelon 04-10-2025 Albumin [Mass/Vol] 3.1 g/dL Low 3.9-4.9 [facility] Comment on above: Order Comment: Speci men Type: BLOOD SPECIMENOrdering Facility: [facility] Address: [address] [place] [address] Performed By: #### 2 4362-6 ####[facility]ATORYCLIA [id number] [place] [address] [place] Anion gap [Moles/Vol] 20 mmol/L High 8-15 [facility] Comment on above: Order Comment: Speci men Type: BLOOD SPECIMENOrdering Facility: [facility] Address: [address] [place] [address] Performed By: #### 2 4362-6 ####[facility]ATORYCLIA [id number] [place] [address] [place] Calcium [Mass/Vol] 7.9 mg/dL Low 8.5-10.2 [facility] Comment on above: Order Comment: Speci men Type: BLOOD SPECIMENOrdering Facility: [facility] Address: [address] [place] [address] Performed By: #### 2 4362-6 ####[facility]ATORYCLIA [id number] [place] [address] [place] Chloride [Moles/Vol] 92 mmol/L Low 98-107 [facility] Comment on above: Order Comment: Speci men Type: BLOOD SPECIMENOrdering Facility: [facility] Address: [address] [place] [address] Performed By: #### 2 4362-6 ####[facility]ATORYCLIA [id number] [place] [address] [place] CO2 [Moles/Vol] 20 mmol/L Low 22-30 [facility] Comment on above: Order Comment: Speci men Type: BLOOD SPECIMENOrdering Facility: [facility] Address: [address] [place] [address] Performed By: #### 2 4362-6 ####[facility]ATORYCLIA [id number] [place] [address] [place] Creatinine [Mass/Vol] 4.95 mg/dL High 0.73-1.22 [facility] Comment on above: Order Comment: Speci men Type: BLOOD SPECIMENOrdering Facility: [facility] Address: [address] [place] [address] Performed By: #### 2 4362-6 ####[facility]ATORYCLIA [id number] [address] OF [place] eGFRcr SerPlBld CKD-EPI 2020 12 mL/min/1.73m??? Low >=60 [facility] Comment on above: Order Comment: Speci men Type: BLOOD SPECIMENOrdering Facility: [facility] Address: [address] [place] [address] Result Comment: Mary Kay mated Glomerular Filtration [...] actual GFR. Performed By: #### 2 4362-6 ####[facility]ATORYCLIA [id number] [address] [place] Glucose [Mass/Vol] 122 mg/dL High 74-99 [facility] Comment on above: Order Comment: Speci men Type: BLOOD SPECIMENOrdering Facility: [facility] Address: [address] [place] [address] Result Comment: The [place] Diabetes Association (ADA) provides guidance for cutoff [...] Standards of Medical Care in Diabetes 2016, [place] Diabetes Association. Diabetes Care. 2016.39(Suppl 1). Performed By: #### 2 4362-6 ####[facility]ATORYCLIA [id number] [place] [address] [place] Phosphate [Mass/Vol] 7.1 mg/dL High 2.7-4.8 [facility] Comment on above: Order Comment: Speci men Type: BLOOD SPECIMENOrdering Facility: [facility] Address: [address] [place] [address] Performed By: #### 2 4362-6 ####[facility]ATORYCLIA [id number] [place] [address] [place] Potassium [Moles/Vol] 3.9 mmol/L Normal 3.7-5.1 [facility] Comment on above: Order Comment: Speci men Type: BLOOD SPECIMENOrdering Facility: [facility] Address: [address] [place] [address] Performed By: #### 2 4362-6 ####[facility]ATORYCLIA [id number] [place] [address] [place] Sodium [Moles/Vol] 132 mmol/L Low 136-144 [facility] Comment on above: Order Comment: Speci men Type: BLOOD SPECIMENOrdering Facility: [facility] Address: [address] [place] [address] Performed By: #### 2 4362-6 ####[facility]ATORYCLIA [id number] [place] [address] [place] Urea nitrogen [Mass/Vol] 54 mg/dL High 9-24 [facility] Comment on above: Order Comment: Speci men Type: BLOOD SPECIMENOrdering Facility: [facility] Address: [address] [place] [address] Performed By: #### 2 4362-6 ####[facility]ORATORYCLIA [id number] [place] [id number] [place] US KIDNEY/BLADDERon 04-10-20 25 US KIDNEY/BLADDER Normal [facility] XR CHEST 1V FRONTALon 2024 XR CHEST 1V FRONTAL Normal [facility] aPTT PPPon 04-10-2025 aPTT Coag (PPP) [Time] 56.6 s High 23.0-32.4 [facility] Comment on above: Order Comment: Speci men Type: BLOOD SPECIMENOrdering Facility: [facility] Address: [address] [place] [address] Performed By: #### 1 4979-9 ####[facility]ATORYCLIA [id number] [address] aPTT Coag (PPP) [Time] 63.6 s High 23.0-32.4 [facility] Comment on above: Order Comment: Speci men Type: BLOOD SPECIMENOrdering Facility: [facility] Address: [address] [place] [address] Performed By: #### 1 4979-9 ####[facility]ATORYCLIA [id number] [address] STATES OF [facility] aPTT Coag (PPP) [Time] 61.6 s High 23.0-32.4 [facility] Comment on above: Order Comment: Speci men Type: BLOOD SPECIMENOrdering Facility: [facility] Address: [address] [place] [address] Performed By: #### 1 4979-9 ####[facility]ATORYCLIA [id number] [address] OF [facility] ARTERIAL BLOOD GASESon 04-09 Base deficit (BldA) [Moles/Vol] -8 mmol/L Low -2-0 [facility] Comment on above: Order Comment: Speci men Type: ARTERIAL BLOOD SPECIMENOrdering Facility: [facility] Address: [address] [place] [address] Performed By: #### A LLBG ####[facility]ATORYCLIA [id number] [address] Body temperature 98.6 [degF] Normal [facility] Comment on above: Order Comment: Speci men Type: ARTERIAL BLOOD SPECIMENOrdering Facility: [facility] Address: [address] [place] [address] Performed By: #### A LLBG ####[facility]ATORYCLIA [id number] [address] [place] Calcium.ionized (BldV) [Mass/Vol] 1.10 mmol/L Normal 1.08-1.30 [facility] Comment on above: Order Comment: Speci men Type: ARTERIAL BLOOD SPECIMENOrdering Facility: [facility] Address: [address] [place] [address] Performed By: #### A LLBG ####[facility]ATORYCLIA [id number] [address] STATES [place] [facility] Calcium.ionized adjusted to pH 7.4 (BldA) [Moles/Vol] 1.01 mmol/L Low 1.08-1.30 [facility] Comment on above: Order Comment: Speci men Type: ARTERIAL BLOOD SPECIMENOrdering Facility: [facility] Address: [address] [place] [address] Performed By: #### A LLBG ####[facility]ATORYCLIA [id number] [address] [place] Carboxyhemoglobin (BldA) [Mass fraction] 1.1 % Normal 0.0-2.0 [facility] Comment on above: Order Comment: Speci men Type: ARTERIAL BLOOD SPECIMENOrdering Facility: [facility] Address: [address] [place] [address] Result Comment: Carb oxyhemoglobin Reference Range for Smokers: 2.0-8.0% Performed By: #### A LLBG ####[facility]ATORYCLIA [id number] [address] [place] Chloride [Moles/Vol] 96 mmol/L Low 97-105 [facility] Comment on above: Order Comment: Speci men Type: ARTERIAL BLOOD SPECIMENOrdering Facility: [facility] Address: [address] [place] [address] Performed By: #### A LLBG ####[facility]ATORYCLIA [id number] [place] [address] [place] CO2 (Bld) [Partial pressure] 45 mm Hg Normal 36-46 [facility] Comment on above: Order Comment: Speci men Type: ARTERIAL BLOOD SPECIMENOrdering Facility: [facility] Address: [address] [place] [address] Performed By: #### A LLBG ####[facility]ATORYCLIA [id number] [address] STATES [facility] FIO2 100 % Normal [facility] Comment on above: Order Comment: Speci men Type: ARTERIAL BLOOD SPECIMENOrdering Facility: [facility] Address: [address] [place] [address] Performed By: #### A LLBG ####[facility]ATORYCLIA [id number] [address] [place] Glucose [Mass/Vol] 105 mg/dL Normal 60-105 [facility] Comment on above: Order Comment: Speci men Type: ARTERIAL BLOOD SPECIMENOrdering Facility: [facility] Address: [address] [place] [address] Performed By: #### A LLBG ####[facility]ATORYCLIA [id number] [place] [address] [place] HCO3 (Bld) [Moles/Vol] 19 mmol/L Low 22-26 [facility] Comment on above: Order Comment: Speci men Type: ARTERIAL BLOOD SPECIMENOrdering Facility: [facility] Address: [address] [place] [address] Performed By: #### A LLBG ####[facility]ATORYCLIA [id number] [place] [address] [place] Hematocrit (Bld) [Volume fraction] 24.2 % Low 39.0-51.0 [facility] Comment on above: Order Comment: Speci men Type: ARTERIAL BLOOD SPECIMENOrdering Facility: [facility] Address: [address] [place] [address] Performed By: #### A LLBG ####[facility] LABORATORYCLIA [id number] [place] [address] [place] Hemoglobin (Bld) [Mass/Vol] 7.8 g/dL Low 13.0-17.0 [facility] Comment on above: Order Comment: Speci men Type: ARTERIAL BLOOD SPECIMENOrdering Facility: [facility] Address: [address] [place] [address] Performed By: #### A LLBG ####[facility]ATORYCLIA [id number] [address] [place] INHALED TIDAL VOLUME (ML) 450 Normal [facility] Comment on above: Order Comment: Speci men Type: ARTERIAL BLOOD SPECIMENOrdering Facility: [facility] Address: [address] [place] [address] Performed By: #### A LLBG ####[facility]ORYCLIA [id number] [place] [address] [place] Lactate [Moles/Vol] 2.5 mmol/L High 0.5-2.2 [facility] Comment on above: Order Comment: Speci men Type: ARTERIAL BLOOD SPECIMENOrdering Facility: [facility] Address: [address] [place] [address] Performed By: #### A LLBG ####[facility]ORATORYCLIA [id number] [place] [address] [place] Methemoglobin (Bld) [Mass fraction] 1.1 % Normal 0.0-1.5 [facility] Comment on above: Order Comment: Speci men Type: ARTERIAL BLOOD SPECIMENOrdering Facility: [facility] Address: [address] [place] [address] Performed By: #### A LLBG ####[facility]ORATORYCLIA [id number] [address] O2 THERAPY VENT=Ventilator Normal [facility] Comment on above: Order Comment: Speci men Type: ARTERIAL BLOOD SPECIMENOrdering Facility: [facility] Address: [address] [place] [address] Performed By: #### A LLBG ####[facility]ATORYCLIA [id number] [address] [place] Oxygen (Bld) [Partial pressure] 66 mm Hg Low 85-95 [facility] Comment on above: Order Comment: Speci men Type: ARTERIAL BLOOD SPECIMENOrdering Facility: [facility] Address: [address] [place] [address] Performed By: #### A LLBG ####[facility]ATORYCLIA [id number] [address] [place] Oxyhemoglobin (BldA) [Mass fraction] 86 % Low 95-98 [facility] Comment on above: Order Comment: Speci men Type: ARTERIAL BLOOD SPECIMENOrdering Facility: [facility] Address: [address] [place] [address] Performed By: #### A LLBG ####[facility]ATORYCLIA [id number] [address] [place] PEEP/CPAP 12 cmH2O Normal [facility] Comment on above: Order Comment: Speci men Type: ARTERIAL BLOOD SPECIMENOrdering Facility: [facility] Address: [address] [place] [address] Performed By: #### A LLBG ####[facility]ORYCLIA [id number] [place] [address] [place] pH (Bld) 7.24 [pH] Low 7.35-7.45 [facility] Comment on above: Order Comment: Speci men Type: ARTERIAL BLOOD SPECIMENOrdering Facility: [facility] Address: [address] [place] [address] Performed By: #### A LLBG ####[facility]ORYCLIA [id number] [address] [place] PO2 / FIO2 RATIO 66 mmHg Low >300 [facility] Comment on above: Order Comment: Speci men Type: ARTERIAL BLOOD SPECIMENOrdering Facility: [facility] Address: [address] [place] [address] Performed By: #### A LLBG ####[facility]ORYCLIA [id number] [address] [place] Potassium [Moles/Vol] 3.8 mmol/L Normal 3.5-5.0 [facility] Comment on above: Order Comment: Speci men Type: ARTERIAL BLOOD SPECIMENOrdering Facility: [facility] Address: [address] [place] [address] Performed By: #### A LLBG ####[facility]ATORYCLIA [id number] [address] [place] SET VENTILATOR RESPIRATORY RATE (BPM) 20 BPM Normal [facility] Comment on above: Order Comment: Speci men Type: ARTERIAL BLOOD SPECIMENOrdering Facility: [facility] Address: [address] [place] [address] Performed By: #### A LLBG ####[facility]ORYCLIA [id number] [place] [address] [place] Sodium [Moles/Vol] 135 mmol/L Low 136-144 [facility] Comment on above: Order Comment: Speci men Type: ARTERIAL BLOOD SPECIMENOrdering Facility: [facility] Address: [address] [place] [address] Performed By: #### A LLBG ####[facility]ATORYCLIA [id number] [address] [place] CASE MGT INIT ASSESon 2024 CASE MGT INIT ASSES Normal [facility] CBC panel Auto (Bld)on 04-09 Erythrocyte distribution width (RBC) [Ratio] 14.3 % Normal 11.5-15.0 [facility] Comment on above: Order Comment: Speci men Type: BLOOD SPECIMENOrdering Facility: [facility] Address: [address] [place] [address] Performed By: #### 5 8410-2 ####[facility]ATORYCLIA [id number] [address] Hematocrit (Bld) [Volume fraction] 23.8 % Low 39.0-51.0 [facility] Comment on above: Order Comment: Speci men Type: BLOOD SPECIMENOrdering Facility: [facility] Address: [address] [place] [address] Performed By: #### 5 8410-2 ####[facility]ORYCLIA [id number] [address] OF [facility] Hemoglobin (Bld) [Mass/Vol] 7.5 g/dL Low 13.0-17.0 [facility] Comment on above: Order Comment: Speci men Type: BLOOD SPECIMENOrdering Facility: [facility] Address: [address] [place] [address] Performed By: #### 5 8410-2 ####[facility]ATORYCLIA [id number] [address] MCH (RBC) [Entitic mass] 27.1 pg Normal 26.0-34.0 [facility] Comment on above: Order Comment: Speci men Type: BLOOD SPECIMENOrdering Facility: [facility] Address: [address] [place] [address] Performed By: #### 5 8410-2 ####[facility]ORYCLIA [id number] [address] MCHC (RBC) [Mass/Vol] 31.5 g/dL Normal 30.5-36.0 [facility] Comment on above: Order Comment: Speci men Type: BLOOD SPECIMENOrdering Facility: [facility] Address: [address] [place] [address] Performed By: #### 5 8410-2 ####[facility]ATORYCLIA [id number] [address] OF [facility] MCV (RBC) [Entitic vol] 85.9 fL Normal 80.0-100.0 [facility] Comment on above: Order Comment: Speci men Type: BLOOD SPECIMENOrdering Facility: [facility] Address: [address] [place] [address] Performed By: #### 5 8410-2 ####[facility]ATORYCLIA [id number] [address] Nucleated RBC (Bld) [#/Vol] 10*3/uL Normal <0.01 [facility] Comment on above: Order Comment: Speci men Type: BLOOD SPECIMENOrdering Facility: [facility] Address: [address] [place] [address] Performed By: #### 5 8410-2 ####[facility]ATORYCLIA [id number] [address] [place] Platelet mean volume (Bld) [Entitic vol] 10.7 fL Normal 9.0-12.7 [facility] Comment on above: Order Comment: Speci men Type: BLOOD SPECIMENOrdering Facility: [facility] Address: [address] [place] [address] Performed By: #### 5 8410-2 ####[facility]ATORYCLIA [id number] [address] [place] Platelets (Bld) [#/Vol] 176 10*3/uL Normal 150-400 [facility] Comment on above: Order Comment: Speci men Type: BLOOD SPECIMENOrdering Facility: [facility] Address: [address] [place] [address] Performed By: #### 5 8410-2 ####[facility]ATORYCLIA [id number] [address] [place] RBC (Bld) [#/Vol] 2.77 10*6/uL Low 4.20-6.00 [facility] Comment on above: Order Comment: Speci men Type: BLOOD SPECIMENOrdering Facility: [facility] Address: [address] [place] [address] Performed By: #### 5 8410-2 ####[facility]ATORYCLIA [id number] [address] [place] WBC (Bld) [#/Vol] 9.84 10*3/uL Normal 3.70-11.00 [facility] Comment on above: Order Comment: Speci men Type: BLOOD SPECIMENOrdering Facility: [facility] Address: [address] [place] [address] Performed By: #### 5 8410-2 ####[facility]ATORYCLIA [id number] [address] [place] CONSULTon 04-09-2025 CONSULT Normal [facility] Comprehensive metabolic 2000 panelon 04-09-2025 Albumin [Mass/Vol] 3.4 g/dL Low 3.9-4.9 [facility] Comment on above: Order Comment: Speci men Type: BLOOD SPECIMENOrdering Facility: [facility] Address: [address] [place] [address] Performed By: #### 2 4323-8 ####[facility]ATORYCLIA [id number] [place] [address] [place] ALP [Catalytic activity/Vol] 97 U/L Normal 38-113 [facility] Comment on above: Order Comment: Speci men Type: BLOOD SPECIMENOrdering Facility: [facility] Address: [address] [place] [address] Performed By: #### 2 4323-8 ####[facility]ATORYCLIA [id number] [address] [place] ALT With P-5'-P [Catalytic activity/Vol] 16 U/L Normal 10-54 [facility] Comment on above: Order Comment: Speci men Type: BLOOD SPECIMENOrdering Facility: [facility] Address: [address] [place] [address] Performed By: #### 2 4323-8 ####[facility]ORYCLIA [id number] [address] Anion gap [Moles/Vol] 17 mmol/L High 8-15 [facility] Comment on above: Order Comment: Speci men Type: BLOOD SPECIMENOrdering Facility: [facility] Address: [address] [place] [address] Performed By: #### 2 4323-8 ####[facility]ORATORYCLIA [id number] [place] [address] [place] AST With P-5'-P [Catalytic activity/Vol] 55 U/L High 14-40 [facility] Comment on above: Order Comment: Speci men Type: BLOOD SPECIMENOrdering Facility: [facility] Address: [address] [place] [address] Performed By: #### 2 4323-8 ####[facility]ATORYCLIA [id number] [place] [address] [place] Bilirubin [Mass/Vol] 0.5 mg/dL Normal 0.2-1.3 [facility] Comment on above: Order Comment: Speci men Type: BLOOD SPECIMENOrdering Facility: [facility] Address: [address] [place] [address] Performed By: #### 2 4323-8 ####[facility]ORYCLIA [id number] [place] [address] [place] Calcium [Mass/Vol] 7.9 mg/dL Low 8.5-10.2 [facility] Comment on above: Order Comment: Speci men Type: BLOOD SPECIMENOrdering Facility: [facility] Address: [address] [place] [address] Performed By: #### 2 4323-8 ####[facility]ORATORYCLIA [id number] [place] [address] [place] Chloride [Moles/Vol] 94 mmol/L Low 98-107 [facility] Comment on above: Order Comment: Speci men Type: BLOOD SPECIMENOrdering Facility: [facility] Address: [address] [place] [address] Performed By: #### 2 4323-8 ####[facility] LABORATORYCLIA [id number] [place] [address] [place] CO2 [Moles/Vol] 23 mmol/L Normal 22-30 [facility] Comment on above: Order Comment: Speci men Type: BLOOD SPECIMENOrdering Facility: [facility] Address: [address] [place] [address] Performed By: #### 2 4323-8 ####[facility] - [place] [id number] [place] [id number] [facility] Creatinine [Mass/Vol] 2.73 mg/dL High 0.73-1.22 [facility] Comment on above: Order Comment: Speci men Type: BLOOD SPECIMENOrdering Facility: [facility] Address: [address] [place] [address] Performed By: #### 2 4323-8 ####[facility]ORATORYCLIA [id number] [address] eGFRcr SerPlBld CKD-EPI 2020 24 mL/min/1.73m??? Low >=60 [facility] Comment on above: Order Comment: Speci men Type: BLOOD SPECIMENOrdering Facility: [facility] Address: [address] [place] [address] Result Comment: Mary Kay mated Glomerular Filtration [...] actual GFR. Performed By: #### 2 4323-8 ####[facility]ORATORYCLIA [id number] [address] [place] Glucose [Mass/Vol] 126 mg/dL High 74-99 [facility] Comment on above: Order Comment: Speci alex Type: BLOOD SPECIMENOrdering Facility: [facility] Address: [address] [place] [address] Result Comment: The [place] Diabetes Association (ADA) provides guidance for cutoff [...] Standards of Medical Care in Diabetes 2016, [place] Diabetes Association. Diabetes Care. 2016.39(Suppl 1). Performed By: #### 2 4323-8 ####[facility]ORATORYCLIA [id number] [place] [address] [place] [facility] Potassium [Moles/Vol] 3.6 mmol/L Low 3.7-5.1 [facility] Comment on above: Order Comment: Jose Cruz johnson Type: BLOOD SPECIMENOrdering Facility: [facility] Address: [address] [place] [address] Performed By: #### 2 4323-8 ####[facility]ORATORYCLIA [id number] [place] [address] [place] Protein [Mass/Vol] 6.4 g/dL Normal 6.3-8.0 [facility] Comment on above: Order Comment: Jose Cruz johnson Type: BLOOD SPECIMENOrdering Facility: [facility] Address: [address] [place] [address] Performed By: #### 2 4323-8 ####[facility]ATORYCLIA [id number] [place] [address] [place] Sodium [Moles/Vol] 134 mmol/L Low 136-144 [facility] Comment on above: Order Comment: Dahianai alex Type: BLOOD SPECIMENOrdering Facility: [facility] Address: [address] [place] [address] Performed By: #### 2 4323-8 ####[facility]ORATORYCLIA [id number] [place] [address] [place] Urea nitrogen [Mass/Vol] 40 mg/dL High 9-24 [facility] Comment on above: Order Comment: Jose Cruz johnson Type: BLOOD SPECIMENOrdering Facility: [facility] Address: [address] [place] [address] Performed By: #### 2 4323-8 ####[facility]ORATORYCLIA [id number] [address] Gas and Carbon monoxide pane l (BldV)on 04-09-2025 BASE DEFICIT, VENOUS -8 mmol/L Low -2-0 [facility] Comment on above: Order Comment: Speci men Type: VENOUS BLOOD SPECIMENOrdering Facility: [facility] Address: [address] [place] [address] Performed By: #### 2 4344-4 ####[facility]ORATORYCLIA [id number] [address] Body temperature 98.6 [degF] Normal [facility] Comment on above: Order Comment: Speci men Type: VENOUS BLOOD SPECIMENOrdering Facility: [facility] Address: [address] [place] [address] Performed By: #### 2 4344-4 ####[facility]ATORYCLIA [id number] [address] Calcium.ionized (BldV) [Mass/Vol] 1.06 mmol/L Low 1.08-1.30 [facility] Comment on above: Order Comment: Speci men Type: VENOUS BLOOD SPECIMENOrdering Facility: [facility] Address: [address] [place] [address] Performed By: #### 2 4344-4 ####[facility]ORATORYCLIA [id number] [address] Calcium.ionized adjusted to pH 7.4 (BldA) [Moles/Vol] 0.98 mmol/L Low 1.08-1.30 [facility] Comment on above: Order Comment: Speci men Type: VENOUS BLOOD SPECIMENOrdering Facility: [facility] Address: [address] [place] [address] Performed By: #### 2 4344-4 ####[facility]ATORYCLIA [id number] [address] Carboxyhemoglobin (BldV) [Mass fraction] 1.2 % Normal 0.0-2.0 [facility] Comment on above: Order Comment: Speci men Type: VENOUS BLOOD SPECIMENOrdering Facility: [facility] Address: [address] [place] [address] Result Comment: Carb oxyhemoglobin Reference Range for Smokers: 2.0-8.0% Performed By: #### 2 4344-4 ####[facility] LABORATORYCLIA [id number] [address] [place] Chloride [Moles/Vol] 96 mmol/L Low 97-105 [facility] Comment on above: Order Comment: Speci men Type: VENOUS BLOOD SPECIMENOrdering Facility: [facility] Address: [address] [place] [address] Performed By: #### 2 4344-4 ####[facility] LABORATORYCLIA [id number] [address] [place] CO2 (BldV) [Partial pressure] 43 mm[Hg] Normal 42-55 [facility] Comment on above: Order Comment: Speci men Type: VENOUS BLOOD SPECIMENOrdering Facility: [facility] Address: [address] [place] [address] Performed By: #### 2 4344-4 ####[facility]ATORYCLIA [id number] [address] FIO2 100 % Normal [facility] Comment on above: Order Comment: Speci men Type: VENOUS BLOOD SPECIMENOrdering Facility: [facility] Address: [address] [place] [address] Performed By: #### 2 4344-4 ####[facility]ORATORYCLIA [id number] [place] [address] [place] Glucose [Mass/Vol] 171 mg/dL High 60-105 [facility] Comment on above: Order Comment: Speci men Type: VENOUS BLOOD SPECIMENOrdering Facility: [facility] Address: [address] [place] [address] Performed By: #### 2 4344-4 ####[facility] LABORATORYCLIA [id number] [place] [address] [place] HCO3 (Bld) [Moles/Vol] 18 mmol/L Low 24-28 [facility] Comment on above: Order Comment: Speci men Type: VENOUS BLOOD SPECIMENOrdering Facility: [facility] Address: [address] [place] [address] Performed By: #### 2 4344-4 ####[facility]ATORYCLIA [id number] [address] [place] Hematocrit (Bld) [Volume fraction] 23.9 % Low 39.0-51.0 [facility] Comment on above: Order Comment: Speci men Type: VENOUS BLOOD SPECIMENOrdering Facility: [facility] Address: [address] [place] [address] Performed By: #### 2 4344-4 ####[facility]ATORYCLIA [id number] [address] [place] Hemoglobin (Bld) [Mass/Vol] 7.6 g/dL Low 13.0-17.0 [facility] Comment on above: Order Comment: Speci men Type: VENOUS BLOOD SPECIMENOrdering Facility: [facility] Address: [address] [place] [address] Performed By: #### 2 4344-4 ####[facility]ATORYCLIA [id number] [address] [place] INHALED TIDAL VOLUME (ML) 450 Normal [facility] Comment on above: Order Comment: Speci men Type: VENOUS BLOOD SPECIMENOrdering Facility: [facility] Address: [address] [place] [address] Performed By: #### 2 4344-4 ####[facility]ORATORYCLIA [id number] [address] [place] Lactate [Moles/Vol] 1.1 mmol/L Normal 0.5-2.2 [facility] Comment on above: Order Comment: Speci men Type: VENOUS BLOOD SPECIMENOrdering Facility: [facility] Address: [address] [place] [address] Performed By: #### 2 4344-4 ####[facility]ORATORYCLIA [id number] [place] [address] [place] Methemoglobin (Bld) [Mass fraction] 1.1 % Normal 0.0-1.5 [facility] Comment on above: Order Comment: Speci men Type: VENOUS BLOOD SPECIMENOrdering Facility: [facility] Address: [address] [place] [address] Performed By: #### 2 4344-4 ####[facility]ORATORYCLIA [id number] [address] [place] O2 THERAPY VENT=Ventilator Normal [facility] Comment on above: Order Comment: Speci men Type: VENOUS BLOOD SPECIMENOrdering Facility: [facility] Address: [address] [place] [address] Performed By: #### 2 4344-4 ####[facility]ATORYCLIA [id number] [address] [place] Oxygen (BldV) [Partial pressure] 62 mm[Hg] High 35-45 [facility] Comment on above: Order Comment: Speci men Type: VENOUS BLOOD SPECIMENOrdering Facility: [facility] Address: [address] [place] [address] Performed By: #### 2 4344-4 ####[facility]ATORYCLIA [id number] [address] [place] Oxygen saturation in Venous blood 87 % High 60-85 [facility] Comment on above: Order Comment: Speci men Type: VENOUS BLOOD SPECIMENOrdering Facility: [facility] Address: [address] [place] [address] Performed By: #### 2 4344-4 ####[facility]ORATORYCLIA [id number] [address] [place] Oxyhemoglobin (BldV) [Mass fraction] 85 % Normal 60-85 [facility] Comment on above: Order Comment: Speci men Type: VENOUS BLOOD SPECIMENOrdering Facility: [facility] Address: [address] [place] [address] Performed By: #### 2 4344-4 ####[facility]ATORYCLIA [id number] [place] [address] [place] PEEP/CPAP 12 cmH2O Normal [facility] Comment on above: Order Comment: Speci men Type: VENOUS BLOOD SPECIMENOrdering Facility: [facility] Address: [address] [place] [address] Performed By: #### 2 4344-4 ####[facility]ATORYCLIA [id number] [place] [address] [place] pH (BldV) 7.25 [pH] Low 7.32-7.42 [facility] Comment on above: Order Comment: Speci men Type: VENOUS BLOOD SPECIMENOrdering Facility: [facility] Address: [address] [place] [address] Performed By: #### 2 4344-4 ####[facility]ATORYCLIA [id number] [address] [place] Potassium [Moles/Vol] 3.7 mmol/L Normal 3.5-5.0 [facility] Comment on above: Order Comment: Speci men Type: VENOUS BLOOD SPECIMENOrdering Facility: [facility] Address: [address] [place] [address] Performed By: #### 2 4344-4 ####[facility]ATORYCLIA [id number] [address] [place] Sodium [Moles/Vol] 133 mmol/L Low 136-144 [facility] Comment on above: Order Comment: Speci men Type: VENOUS BLOOD SPECIMENOrdering Facility: [facility] Address: [address] [place] [address] Performed By: #### 2 4344-4 ####[facility]ORATORYCLIA [id number] [place] [address] [place] BASE DEFICIT, VENOUS -3 mmol/L Low -2-0 [facility] Comment on above: Order Comment: Speci men Type: VENOUS BLOOD SPECIMENOrdering Facility: [facility] Address: [address] [place] [address] Performed By: #### 2 4344-4 ####[facility]ATORYCLIA [id number] [address] Body temperature 97.7 [degF] Normal [facility] Comment on above: Order Comment: Speci men Type: VENOUS BLOOD SPECIMENOrdering Facility: [facility] Address: [address] [place] [address] Performed By: #### 2 4344-4 ####[facility]ATORYCLIA [id number] [address] Calcium.ionized (BldV) [Mass/Vol] 1.07 mmol/L Low 1.08-1.30 [facility] Comment on above: Order Comment: Speci men Type: VENOUS BLOOD SPECIMENOrdering Facility: [facility] Address: [address] [place] [address] Performed By: #### 2 4344-4 ####[facility]ATORYCLIA [id number] [address] Calcium.ionized adjusted to pH 7.4 (BldA) [Moles/Vol] 1.01 mmol/L Low 1.08-1.30 [facility] Comment on above: Order Comment: Speci men Type: VENOUS BLOOD SPECIMENOrdering Facility: [facility] Address: [address] [place] [address] Performed By: #### 2 4344-4 ####[facility]ATORYCLIA [id number] [address] Carboxyhemoglobin (BldV) [Mass fraction] 2.0 % Normal 0.0-2.0 [facility] Comment on above: Order Comment: Speci men Type: VENOUS BLOOD SPECIMENOrdering Facility: [facility] Address: [address] [place] [address] Result Comment: Carb oxyhemoglobin Reference Range for Smokers: 2.0-8.0% Performed By: #### 2 4344-4 ####[facility]ATORYCLIA [id number] [address] Chloride [Moles/Vol] 95 mmol/L Low 97-105 [facility] Comment on above: Order Comment: Speci men Type: VENOUS BLOOD SPECIMENOrdering Facility: [facility] Address: [address] [place] [address] Performed By: #### 2 4344-4 ####[facility]ORATORYCLIA [id number] [place], [place] [id number] [place] [address] [place] CO2 (BldV) [Partial pressure] 48 mm[Hg] Normal 42-55 [facility] Comment on above: Order Comment: Speci men Type: VENOUS BLOOD SPECIMENOrdering Facility: [facility] Address: [address] [place] [address] Performed By: #### 2 4344-4 ####[facility]ATORYCLIA [id number] [address] CO2 adjusted to patient's actual temperature (BldV) [Partial pressure] 47 mmHg Normal 42-55 [facility] Comment on above: Order Comment: Speci men Type: VENOUS BLOOD SPECIMENOrdering Facility: [facility] Address: [address] [place] [address] Performed By: #### 2 4344-4 ####[facility]ATORYCLIA [id number] [address] [place] FIO2 80 % Normal [facility] Comment on above: Order Comment: Speci men Type: VENOUS BLOOD SPECIMENOrdering Facility: [facility] Address: [address] [place] [address] Performed By: #### 2 4344-4 ####[facility]ORATORYCLIA [id number] [place] [address] [place] Glucose [Mass/Vol] 124 mg/dL High 60-105 [facility] Comment on above: Order Comment: Speci men Type: VENOUS BLOOD SPECIMENOrdering Facility: [facility] Address: [address] [place] [address] Performed By: #### 2 4344-4 ####[facility] LABORATORYCLIA [id number] [place] [address] [place] HCO3 (Bld) [Moles/Vol] 23 mmol/L Low 24-28 [facility] Comment on above: Order Comment: Speci men Type: VENOUS BLOOD SPECIMENOrdering Facility: [facility] Address: [address] [place] [address] Performed By: #### 2 4344-4 ####[facility]ATORYCLIA [id number] [address] [place] Hematocrit (Bld) [Volume fraction] 24.2 % Low 39.0-51.0 [facility] Comment on above: Order Comment: Speci men Type: VENOUS BLOOD SPECIMENOrdering Facility: [facility] Address: [address] [place] [address] Performed By: #### 2 4344-4 ####[facility]ATORYCLIA [id number] [address] [place] Hemoglobin (Bld) [Mass/Vol] 7.8 g/dL Low 13.0-17.0 [facility] Comment on above: Order Comment: Speci men Type: VENOUS BLOOD SPECIMENOrdering Facility: [facility] Address: [address] [place] [address] Performed By: #### 2 4344-4 ####[facility]ATORYCLIA [id number] [address] [place] IPAP (CM H2O) 108 Normal [facility] Comment on above: Order Comment: Speci men Type: VENOUS BLOOD SPECIMENOrdering Facility: [facility] Address: [address] [place] [address] Performed By: #### 2 4344-4 ####[facility]ORATORYCLIA [id number] [place] [address] [place] Lactate [Moles/Vol] 1.1 mmol/L Normal 0.5-2.2 [facility] Comment on above: Order Comment: Speci men Type: VENOUS BLOOD SPECIMENOrdering Facility: [facility] Address: [address] [place] [address] Performed By: #### 2 4344-4 ####[facility]ORATORYCLIA [id number] [address] OF [facility] Methemoglobin (Bld) [Mass fraction] 1.0 % Normal 0.0-1.5 [facility] Comment on above: Order Comment: Speci men Type: VENOUS BLOOD SPECIMENOrdering Facility: [facility] Address: [address] [place] [address] Performed By: #### 2 4344-4 ####[facility]ORATORYCLIA [id number] [address] O2 THERAPY Positive Normal [facility] Comment on above: Order Comment: Speci men Type: VENOUS BLOOD SPECIMENOrdering Facility: [facility] Address: [address] [place] [address] Performed By: #### 2 4344-4 ####[facility]ATORYCLIA [id number] [address] Oxygen (BldV) [Partial pressure] 63 mm[Hg] High 35-45 [facility] Comment on above: Order Comment: Speci men Type: VENOUS BLOOD SPECIMENOrdering Facility: [facility] Address: [address] [place] [address] Performed By: #### 2 4344-4 ####[facility]ATORYCLIA [id number] [address] Oxygen adjusted to patient's actual temperature (BldV) [Partial pressure] 61 mmHg High 35-45 [facility] Comment on above: Order Comment: Speci men Type: VENOUS BLOOD SPECIMENOrdering Facility: [facility] Address: [address] [place] [address] Performed By: #### 2 4344-4 ####[facility]ATORYCLIA [id number] [address] [place] Oxygen saturation in Venous blood 89 % High 60-85 [facility] Comment on above: Order Comment: Speci men Type: VENOUS BLOOD SPECIMENOrdering Facility: [facility] Address: [facility] [place] [address] Performed By: #### 2 4344-4 ####[facility]ATORYCLIA [id number] [address] [place] Oxyhemoglobin (BldV) [Mass fraction] 86 % High 60-85 [facility] Comment on above: Order Comment: Speci men Type: VENOUS BLOOD SPECIMENOrdering Facility: [facility] Address: [address] [place] [address] Performed By: #### 2 4344-4 ####[facility]ATORYCLIA [id number] [place] [address] [place] PEEP/CPAP 8 cmH2O Normal [facility] Comment on above: Order Comment: Speci men Type: VENOUS BLOOD SPECIMENOrdering Facility: [facility] Address: [address] [place] [address] Performed By: #### 2 4344-4 ####[facility]ORYCLIA [id number] [place] [address] [place] pH (BldV) 7.30 [pH] Low 7.32-7.42 [facility] Comment on above: Order Comment: Speci men Type: VENOUS BLOOD SPECIMENOrdering Facility: [facility] Address: [address] [place] [address] Performed By: #### 2 4344-4 ####[facility]ATORYCLIA [id number] [address] [place] pH adjusted to patient's actual temperature (BldV) 7.31 Low 7.32-7.42 [facility] Comment on above: Order Comment: Speci men Type: VENOUS BLOOD SPECIMENOrdering Facility: [facility] Address: [address] [place] [address] Performed By: #### 2 4344-4 ####[facility]ATORYCLIA [id number] [place] [address] [place] Potassium [Moles/Vol] 3.6 mmol/L Normal 3.5-5.0 [facility] Comment on above: Order Comment: Speci men Type: VENOUS BLOOD SPECIMENOrdering Facility: [facility] Address: [address] [place] [address] Performed By: #### 2 4344-4 ####[facility]ATORYCLIA [id number] [address] SET VENTILATOR RESPIRATORY RATE (BPM) 16 BPM Normal [facility] Comment on above: Order Comment: Speci men Type: VENOUS BLOOD SPECIMENOrdering Facility: [facility] Address: [address] [place] [address] Performed By: #### 2 4344-4 ####[facility]ATORYCLIA [id number] [address] [place] Sodium [Moles/Vol] 135 mmol/L Low 136-144 [facility] Comment on above: Order Comment: Speci men Type: VENOUS BLOOD SPECIMENOrdering Facility: [facility] Address: [address] [place] [address] Performed By: #### 2 4344-4 ####[facility]ATORYCLIA [id number] [address] Magnesium SerPl-ncon 04-09 Magnesium [Mass/Vol] 2.6 mg/dL High 1.7-2.3 [facility] Comment on above: Order Comment: Speci men Type: BLOOD SPECIMENOrdering Facility: [facility] Address: [address] [place] [address] Performed By: #### 1 9123-9, 2777-1 ####[facility]ATORYCLIA [id number] [address] [place] Phosphate SerPl-mCncon 04-09 Phosphate [Mass/Vol] 5.3 mg/dL High 2.7-4.8 [facility] Comment on above: Order Comment: Speci men Type: BLOOD SPECIMENOrdering Facility: [facility] Address: [address] [place] [address] Performed By: #### 1 9123-9, 2777-1 ####[facility]ATORYCLIA [id number] [address] [place] XR ABDOMEN 1V SUPINEon 04-09 XR ABDOMEN 1V SUPINE Normal [facility] XR CHEST 1V FRONTALon 2024 XR CHEST 1V FRONTAL Normal [facility] XR CHEST 1V FRONTAL Normal [facility] XR CHEST 1V FRONTAL PORTon 0 04-09-2025 XR CHEST 1V FRONTAL PORT Normal [facility] aPTT PPPon 04-09-2025 aPTT Coag (PPP) [Time] 65.2 s High 23.0-32.4 [facility] Comment on above: Order Comment: Speci men Type: BLOOD SPECIMENOrdering Facility: [facility] Address: [address] [place] [address] Performed By: #### 1 4979-9 ####[facility]ATORYCLIA [id number] [address] aPTT Coag (PPP) [Time] 44.8 s High 23.0-32.4 [facility] Comment on above: Order Comment: Speci men Type: BLOOD SPECIMENOrdering Facility: [facility] Address: [address] [place] [address] Performed By: #### 1 4979-9 ####[facility]ATORYCLIA [id number] [address] aPTT Coag (PPP) [Time] 57.5 s High 23.0-32.4 [facility] Comment on above: Order Comment: Speci men Type: BLOOD SPECIMENOrdering Facility: [facility] Address: [address] [place] [address] Performed By: #### 1 4979-9 ####[facility]ATORYCLIA [id number] [address] ARTERIAL BLOOD GASESon 04-08 Base deficit (BldA) [Moles/Vol] -2 mmol/L Normal -2-0 [facility] Comment on above: Order Comment: Speci men Type: ARTERIAL BLOOD SPECIMENOrdering Facility: [facility] Address: [address] [place] [address] Performed By: #### A LLBG ####[facility]ATORYCLIA [id number] [address] Body temperature 98.6 [degF] Normal [facility] Comment on above: Order Comment: Speci men Type: ARTERIAL BLOOD SPECIMENOrdering Facility: [facility] Address: [address] [place] [address] Performed By: #### A LLBG ####[facility]ORYCLIA [id number] [address] Calcium.ionized (BldV) [Mass/Vol] 1.06 mmol/L Low 1.08-1.30 [facility] Comment on above: Order Comment: Speci men Type: ARTERIAL BLOOD SPECIMENOrdering Facility: [facility] Address: [address] [place] [address] Performed By: #### A LLBG ####[facility]ORYCLIA [id number] [address] [place] [facility] Calcium.ionized adjusted to pH 7.4 (BldA) [Moles/Vol] 1.03 mmol/L Low 1.08-1.30 [facility] Comment on above: Order Comment: Speci men Type: ARTERIAL BLOOD SPECIMENOrdering Facility: [facility] Address: [address] [place] [address] Performed By: #### A LLBG ####[facility]ATORYCLIA [id number] [address] [place] Carboxyhemoglobin (BldA) [Mass fraction] 0.7 % Normal 0.0-2.0 [facility] Comment on above: Order Comment: Speci men Type: ARTERIAL BLOOD SPECIMENOrdering Facility: [facility] Address: [address] [place] [address] Result Comment: Carb oxyhemoglobin Reference Range for Smokers: 2.0-8.0% Performed By: #### A LLBG ####[facility]ORATORYCLIA [id number] [address] [place] Chloride [Moles/Vol] 97 mmol/L Normal 97-105 [facility] Comment on above: Order Comment: Speci men Type: ARTERIAL BLOOD SPECIMENOrdering Facility: [facility] Address: [address] [place] [address] Performed By: #### A LLBG ####[facility]ORATORYCLIA [id number] [address] [place] CO2 (Bld) [Partial pressure] 44 mm Hg Normal 36-46 [facility] Comment on above: Order Comment: Speci men Type: ARTERIAL BLOOD SPECIMENOrdering Facility: [facility] Address: [address] [place] [address] Performed By: #### A LLBG ####[facility]ORATORYCLIA [id number] [address] [place] FIO2 90 % Normal [facility] Comment on above: Order Comment: Speci men Type: ARTERIAL BLOOD SPECIMENOrdering Facility: [facility] Address: [address] [place] [address] Performed By: #### A LLBG ####[facility]ORATORYCLIA [id number] [address] [place] Glucose [Mass/Vol] 148 mg/dL High 60-105 [facility] Comment on above: Order Comment: Speci men Type: ARTERIAL BLOOD SPECIMENOrdering Facility: [facility] Address: [address] [place] [address] Performed By: #### A LLBG ####[facility]ATORYCLIA [id number] [address] [place] HCO3 (Bld) [Moles/Vol] 23 mmol/L Normal 22-26 [facility] Comment on above: Order Comment: Speci men Type: ARTERIAL BLOOD SPECIMENOrdering Facility: [facility] Address: [address] [place] [address] Performed By: #### A LLBG ####[facility]ATORYCLIA [id number] [address] [place] Hematocrit (Bld) [Volume fraction] 26.3 % Low 39.0-51.0 [facility] Comment on above: Order Comment: Speci men Type: ARTERIAL BLOOD SPECIMENOrdering Facility: [facility] Address: [address] [place] [address] Performed By: #### A LLBG ####[facility]ATORYCLIA [id number] [address] [place] Hemoglobin (Bld) [Mass/Vol] 8.5 g/dL Low 13.0-17.0 [facility] Comment on above: Order Comment: Speci men Type: ARTERIAL BLOOD SPECIMENOrdering Facility: [facility] Address: [address] [place] [address] Performed By: #### A LLBG ####[facility]ORYCLIA [id number] [address] [place] Lactate [Moles/Vol] 1.2 mmol/L Normal 0.5-2.2 [facility] Comment on above: Order Comment: Speci men Type: ARTERIAL BLOOD SPECIMENOrdering Facility: [facility] Address: [address] [place] [address] Performed By: #### A LLBG ####[facility]ORYCLIA [id number] [address] [place] LITERS 60 Liters/min Normal [facility] Comment on above: Order Comment: Speci men Type: ARTERIAL BLOOD SPECIMENOrdering Facility: [facility] Address: [address] [place] [address] Performed By: #### A LLBG ####[facility]ORYCLIA [id number] [address] [place] Methemoglobin (Bld) [Mass fraction] 0.9 % Normal 0.0-1.5 [facility] Comment on above: Order Comment: Speci men Type: ARTERIAL BLOOD SPECIMENOrdering Facility: [facility] Address: [address] [place] [address] Performed By: #### A LLBG ####[facility]ORYCLIA [id number] [address] [place] O2 THERAPY Hi-Flow Nasal Cannula-Heated Normal [facility] Comment on above: Order Comment: Speci men Type: ARTERIAL BLOOD SPECIMENOrdering Facility: [facility] Address: [address] [place] [address] Performed By: #### A LLBG ####[facility]ORYCLIA [id number] [address] [place] Oxygen (Bld) [Partial pressure] 65 mm Hg Low 85-95 [facility] Comment on above: Order Comment: Speci men Type: ARTERIAL BLOOD SPECIMENOrdering Facility: [facility] Address: [address] [place] [address] Performed By: #### A LLBG ####[facility]ORYCLIA [id number] [address] [place] Oxyhemoglobin (BldA) [Mass fraction] 89 % Low 95-98 [facility] Comment on above: Order Comment: Speci men Type: ARTERIAL BLOOD SPECIMENOrdering Facility: [facility] Address: [address] [place] [address] Performed By: #### A LLBG ####[facility]ATORYCLIA [id number] [place] [address] [place] pH (Bld) 7.35 [pH] Normal 7.35-7.45 [facility] Comment on above: Order Comment: Speci men Type: ARTERIAL BLOOD SPECIMENOrdering Facility: [facility] Address: [address] [place] [address] Performed By: #### A LLBG ####[facility]ORYCLIA [id number] [address] [place] PO2 / FIO2 RATIO 72 mmHg Low >300 [facility] Comment on above: Order Comment: Speci men Type: ARTERIAL BLOOD SPECIMENOrdering Facility: [facility] Address: [address] [place] [address] Performed By: #### A LLBG ####[facility]ORYCLIA [id number] [place] [address] [place] Potassium [Moles/Vol] 3.7 mmol/L Normal 3.5-5.0 [facility] Comment on above: Order Comment: Speci men Type: ARTERIAL BLOOD SPECIMENOrdering Facility: [facility] Address: [address] [place] [address] Performed By: #### A LLBG ####[facility]ATORYCLIA [id number] [address] Sodium [Moles/Vol] 130 mmol/L Low 136-144 [facility] Comment on above: Order Comment: Speci men Type: ARTERIAL BLOOD SPECIMENOrdering Facility: [facility] Address: [address] [place] [address] Performed By: #### A LLBG ####[facility]ATORYCLIA [id number] [address] CBC panel Auto (Bld)on 04-08 Erythrocyte distribution width (RBC) [Ratio] 14.5 % Normal 11.5-15.0 [facility] Comment on above: Order Comment: Speci men Type: BLOOD SPECIMENOrdering Facility: [facility] Address: [address] [place] [address] Performed By: #### 5 8410-2 ####[facility]ORYCLIA [id number] [address] Hematocrit (Bld) [Volume fraction] 24.6 % Low 39.0-51.0 [facility] Comment on above: Order Comment: Speci men Type: BLOOD SPECIMENOrdering Facility: [facility] Address: [address] [place] [address] Performed By: #### 5 8410-2 ####[facility]ATORYCLIA [id number] [address] Hemoglobin (Bld) [Mass/Vol] 7.6 g/dL Low 13.0-17.0 [facility] Comment on above: Order Comment: Speci men Type: BLOOD SPECIMENOrdering Facility: [facility] Address: [address] [place] [address] Performed By: #### 5 8410-2 ####[facility]ATORYCLIA [id number] [address] MCH (RBC) [Entitic mass] 26.6 pg Normal 26.0-34.0 [facility] Comment on above: Order Comment: Speci men Type: BLOOD SPECIMENOrdering Facility: [facility] Address: [address] [place] [address] Performed By: #### 5 8410-2 ####[facility]ATORYCLIA [id number] [address] [place] MCHC (RBC) [Mass/Vol] 30.9 g/dL Normal 30.5-36.0 [facility] Comment on above: Order Comment: Speci men Type: BLOOD SPECIMENOrdering Facility: [facility] Address: [address] [place] [address] Performed By: #### 5 8410-2 ####[facility]ORYCLIA [id number] [address] [place] MCV (RBC) [Entitic vol] 86.0 fL Normal 80.0-100.0 [facility] Comment on above: Order Comment: Speci men Type: BLOOD SPECIMENOrdering Facility: [facility] Address: [address] [place] [address] Performed By: #### 5 8410-2 ####[facility]ORYCLIA [id number] [address] STATES OF [facility] Nucleated RBC (Bld) [#/Vol] 10*3/uL Normal <0.01 [facility] Comment on above: Order Comment: Speci men Type: BLOOD SPECIMENOrdering Facility: [facility] Address: [address] [place] [address] Performed By: #### 5 8410-2 ####[facility]ORYCLIA [id number] [address] Platelet mean volume (Bld) [Entitic vol] 10.7 fL Normal 9.0-12.7 [facility] Comment on above: Order Comment: Speci men Type: BLOOD SPECIMENOrdering Facility: [facility] Address: [address] [place] [address] Performed By: #### 5 8410-2 ####[facility]ORYCLIA [id number] [address] [facility] Platelets (Bld) [#/Vol] 182 10*3/uL Normal 150-400 [facility] Comment on above: Order Comment: Speci men Type: BLOOD SPECIMENOrdering Facility: [facility] Address: [address] [place] [address] Performed By: #### 5 8410-2 ####[facility]ORYCLIA [id number] [address] [facility] RBC (Bld) [#/Vol] 2.86 10*6/uL Low 4.20-6.00 [facility] Comment on above: Order Comment: Speci men Type: BLOOD SPECIMENOrdering Facility: [facility] Address: [address] [place] [address] Performed By: #### 5 8410-2 ####[facility]ORYCLIA [id number] [address] WBC (Bld) [#/Vol] 10.94 10*3/uL Normal 3.70-11.00 [facility] Comment on above: Order Comment: Speci men Type: BLOOD SPECIMENOrdering Facility: [facility] Address: [address] [place] [address] Performed By: #### 5 8410-2 ####[facility]ORYCLIA [id number] [address] Erythrocyte distribution width (RBC) [Ratio] 14.3 % Normal 11.5-15.0 [facility] Comment on above: Order Comment: Speci men Type: BLOOD SPECIMENOrdering Facility: [facility] Address: [address] [place] [address] Performed By: #### 5 8410-2 ####[facility]ORYCLIA [id number] [address] Hematocrit (Bld) [Volume fraction] 27.6 % Low 39.0-51.0 [facility] Comment on above: Order Comment: Speci men Type: BLOOD SPECIMENOrdering Facility: [facility] Address: [address] [place] [address] Performed By: #### 5 8410-2 ####[facility]ORYCLIA [id number] [address] [place] [facility] Hemoglobin (Bld) [Mass/Vol] 8.4 g/dL Low 13.0-17.0 [facility] Comment on above: Order Comment: Speci men Type: BLOOD SPECIMENOrdering Facility: [facility] Address: [address] [place] [address] Performed By: #### 5 8410-2 ####[facility]ORYCLIA [id number] [address] [place] MCH (RBC) [Entitic mass] 26.4 pg Normal 26.0-34.0 [facility] Comment on above: Order Comment: Speci men Type: BLOOD SPECIMENOrdering Facility: [facility] Address: [address] [place] [address] Performed By: #### 5 8410-2 ####[facility]ORYCLIA [id number] [address] [place] MCHC (RBC) [Mass/Vol] 30.4 g/dL Low 30.5-36.0 [facility] Comment on above: Order Comment: Speci men Type: BLOOD SPECIMENOrdering Facility: [facility] Address: [address] [place] [address] Performed By: #### 5 8410-2 ####[facility]ORYCLIA [id number] [address] [place] MCV (RBC) [Entitic vol] 86.8 fL Normal 80.0-100.0 [facility] Comment on above: Order Comment: Speci men Type: BLOOD SPECIMENOrdering Facility: [facility] Address: [address] [place] [address] Performed By: #### 5 8410-2 ####[facility]ORYCLIA [id number] [address] [place] Nucleated RBC (Bld) [#/Vol] 10*3/uL Normal <0.01 [facility] Comment on above: Order Comment: Speci men Type: BLOOD SPECIMENOrdering Facility: [facility] Address: [address] [place] [address] Performed By: #### 5 8410-2 ####[facility]ORYCLIA [id number] [address] [place] Platelet mean volume (Bld) [Entitic vol] 10.2 fL Normal 9.0-12.7 [facility] Comment on above: Order Comment: Speci men Type: BLOOD SPECIMENOrdering Facility: [facility] Address: [address] [place] [address] Performed By: #### 5 8410-2 ####[facility]ORYCLIA [id number] [address] [place] Platelets (Bld) [#/Vol] 165 10*3/uL Normal 150-400 [facility] Comment on above: Order Comment: Speci men Type: BLOOD SPECIMENOrdering Facility: [facility] Address: [address] [place] [address] Performed By: #### 5 8410-2 ####[facility]ORYCLIA [id number] [address] [place] RBC (Bld) [#/Vol] 3.18 10*6/uL Low 4.20-6.00 [facility] Comment on above: Order Comment: Speci men Type: BLOOD SPECIMENOrdering Facility: [facility] Address: [address] [place] [address] Performed By: #### 5 8410-2 ####[facility]ORYCLIA [id number] [address] [place] WBC (Bld) [#/Vol] 12.20 10*3/uL High 3.70-11.00 [facility] Comment on above: Order Comment: Speci men Type: BLOOD SPECIMENOrdering Facility: [facility] Address: [address] [place] [address] Performed By: #### 5 8410-2 ####[facility]ORYCLIA [id number] [address] [place] CK SerPl-cCncon 04-08-2025 CK [Catalytic activity/Vol] 2203 U/L High 51-298 [facility] Comment on above: Order Comment: Speci men Type: BLOOD SPECIMENOrdering Facility: [facility] Address: [address] [place], [place] [address] [address] Performed By: #### 2 777-1, 51620-5, 58708-9, 3084-1, 63809-1, 2156-6 ####[facility]ATORYCLIA [id number] [address] [facility] CONSULTon 04-08-2025 CONSULT Normal [facility] CONSULT Normal [facility] CONSULT Normal [facility] Comprehensive metabolic 2000 panelon 04-08-2025 Albumin [Mass/Vol] 3.7 g/dL Low 3.9-4.9 [facility] Comment on above: Order Comment: Speci men Type: BLOOD SPECIMENOrdering Facility: [facility] Address: [facility] [place] [address] Performed By: #### 2 777-1, 39449-5, 02978-8, 3084-1, 80547-1, 2156-6 ####[facility]ORYCLIA [id number] [address] [place] ALP [Catalytic activity/Vol] 88 U/L Normal 38-113 [facility] Comment on above: Order Comment: Speci men Type: BLOOD SPECIMENOrdering Facility: [facility] Address: [address] [place], [place] [address] [address] Performed By: #### 2 777-1, 01181-7, 55576-8, 3084-1, 91718-5, 2157-6 ####[facility]ATORYCLIA [id number] [place], [place] [id number] [place] [address] [place] ALT With P-5'-P [Catalytic activity/Vol] 15 U/L Normal 10-54 [facility] Comment on above: Order Comment: Speci men Type: BLOOD SPECIMENOrdering Facility: [facility] Address: [address] [place] [address] Performed By: #### 2 777-1, 26002-9, 86155-6, 3084-1, 54233-4, 2157-6 ####[facility]ATORYCLIA [id number] [place] [address] [place] [facility] Anion gap [Moles/Vol] 17 mmol/L High 8-15 [facility] Comment on above: Order Comment: Speci men Type: BLOOD SPECIMENOrdering Facility: [facility] Address: [address] [place] [address] Performed By: #### 2 777-1, 35687-5, 41153-5, 3084-1, 54122-4, 2156-6 ####[facility]ORYCLIA [id number] [address] AST With P-5'-P [Catalytic activity/Vol] 58 U/L High 14-40 [facility] Comment on above: Order Comment: Speci men Type: BLOOD SPECIMENOrdering Facility: [facility] Address: [address] [place] [address] Performed By: #### 2 777-1, 75170-1, 06453-3, 3084-1, 97030-8, 2156-6 ####[facility]ORYCLIA [id number] [address] [place] Bilirubin [Mass/Vol] 0.6 mg/dL Normal 0.2-1.3 [facility] Comment on above: Order Comment: Speci men Type: BLOOD SPECIMENOrdering Facility: [facility] Address: [address] [place] [address] Performed By: #### 2 777-1, 36887-8, 26253-8, 3084-1, 34823-9, 2157-6 ####[facility]ATORYCLIA [id number] [place] [address] [place] Calcium [Mass/Vol] 8.2 mg/dL Low 8.5-10.2 [facility] Comment on above: Order Comment: Speci men Type: BLOOD SPECIMENOrdering Facility: [facility] Address: [address] [place] [address] Performed By: #### 2 777-1, 96595-9, 66905-6, 3084-1, 94348-9, 2156-6 ####[facility]ATORYCLIA [id number] [place] [address] [place] Chloride [Moles/Vol] 93 mmol/L Low 98-107 [facility] Comment on above: Order Comment: Speci men Type: BLOOD SPECIMENOrdering Facility: [facility] Address: [address] [place] [address] Performed By: #### 2 777-1, 36086-6, 89707-1, 3084-1, 37577-7, 2157-02 ####[facility]ATORYCLIA [id number] [place] [address] [place] CO2 [Moles/Vol] 22 mmol/L Normal 22-30 [facility] Comment on above: Order Comment: Speci men Type: BLOOD SPECIMENOrdering Facility: [facility] Address: [address] [place] [address] Performed By: #### 2 777-1, 50208-6, 75939-2, 3084-1, 69700-1, 6 ####[facility]ATORYCLIA [id number] [place] [address] [place] Creatinine [Mass/Vol] 2.10 mg/dL High 0.73-1.22 [facility] Comment on above: Order Comment: Speci men Type: BLOOD SPECIMENOrdering Facility: [facility] Address: [address] [place] [address] Performed By: #### 2 777-1, 90941-5, 35537-6, 3084-1, 02829-7, 2156-6 ####[facility]ATORYCLIA [id number] [place] [address] [place] eGFRcr SerPlBld CKD-EPI 2020 33 mL/min/1.73m??? Low >=60 [facility] Comment on above: Order Comment: Jose Cruz johnson Type: BLOOD SPECIMENOrdering Facility: [facility] Address: [address] [place] [address] Result Comment: Mary Kay mated Glomerular Filtration [...] actual GFR. Performed By: #### 2 777-1, 08480-3, 25257-9, 3084-1, 74755-2, 2156-6 ####[facility] INDIANACLIA [id number] [place] [address] [place] Glucose [Mass/Vol] 167 mg/dL High 74-99 [facility] Comment on above: Order Comment: Jose Cruz johnson Type: BLOOD SPECIMENOrdering Facility: [facility] Address: [address] [place] [address] Result Comment: The [place] Diabetes Association (ADA) provides guidance for cutoff [...] Standards of Medical Care in Diabetes 2016, [place] Diabetes Association. Diabetes Care. 2016.39(Suppl 1). Performed By: #### 2 777-1, 00461-0, 32315-1, 3084-1, 29141-4, 2157-6 ####[facility]ATORYCLIA [id number] [place] [address] [place] Potassium [Moles/Vol] 3.9 mmol/L Normal 3.7-5.1 [facility] Comment on above: Order Comment: Speci men Type: BLOOD SPECIMENOrdering Facility: [facility] Address: [address] [place] [address] Performed By: #### 2 777-1, 92176-5, 87522-0, 3084-1, 21522-9, 2157-02 ####[facility]ORATORYCLIA [id number] [place] [id number] [place] Protein [Mass/Vol] 6.8 g/dL Normal 6.3-8.0 [facility] Comment on above: Order Comment: Speci men Type: BLOOD SPECIMENOrdering Facility: [facility] Address: [address] [place] [address] Performed By: #### 2 777-1, 00616-3, 44874-8, 3083-1, 76819-6, 2157-02 ####[facility]ATORYCLIA [id number] [place] [address] [place] Sodium [Moles/Vol] 132 mmol/L Low 136-144 [facility] Comment on above: Order Comment: Speci men Type: BLOOD SPECIMENOrdering Facility: [facility] Address: [address] [place] [address] Performed By: #### 2 777-1, 20539-2, 04779-1, 308-1, 30747-7, 2157-02 ####[facility]ATORYCLIA [id number] [place] [id number] [place] Urea nitrogen [Mass/Vol] 31 mg/dL High 9-24 [facility] Comment on above: Order Comment: Speci men Type: BLOOD SPECIMENOrdering Facility: [facility] Address: [address] [place] [address] Performed By: #### 2 777-1, 25103-0, 08465-0, 3084-1, 29745-7, 2157-02 ####[facility]ORATORYCLIA [id number] [address] [facility] Gas and Carbon monoxide pane l (BldV)on 04-08-2025 BASE DEFICIT, VENOUS -3 mmol/L Low -2-0 [facility] Comment on above: Order Comment: Speci men Type: VENOUS BLOOD SPECIMENOrdering Facility: [facility] Address: [address] [place] [address] Performed By: #### 2 4344-4 ####[facility]ORATORYCLIA [id number] [address] Body temperature 97.7 [degF] Normal [facility] Comment on above: Order Comment: Speci men Type: VENOUS BLOOD SPECIMENOrdering Facility: [facility] Address: [address] [place] [address] Performed By: #### 2 4344-4 ####[facility]ORATORYCLIA [id number] [address] STATES [facility] Calcium.ionized (BldV) [Mass/Vol] 1.07 mmol/L Low 1.08-1.30 [facility] Comment on above: Order Comment: Speci men Type: VENOUS BLOOD SPECIMENOrdering Facility: [facility] Address: [address] [place] [address] Performed By: #### 2 4344-4 ####[facility]ORATORYCLIA [id number] [address] Calcium.ionized adjusted to pH 7.4 (BldA) [Moles/Vol] 1.02 mmol/L Low 1.08-1.30 [facility] Comment on above: Order Comment: Speci men Type: VENOUS BLOOD SPECIMENOrdering Facility: [facility] Address: [address] [place] [address] Performed By: #### 2 4344-4 ####[facility]ORATORYCLIA [id number] [address] [place] Carboxyhemoglobin (BldV) [Mass fraction] 2.0 % Normal 0.0-2.0 [facility] Comment on above: Order Comment: Speci men Type: VENOUS BLOOD SPECIMENOrdering Facility: [facility] Address: [address] [place] [address] Result Comment: Carb oxyhemoglobin Reference Range for Smokers: 2.0-8.0% Performed By: #### 2 4344-4 ####[facility]ORATORYCLIA [id number] [address] [place] Chloride [Moles/Vol] 96 mmol/L Low 97-105 [facility] Comment on above: Order Comment: Speci men Type: VENOUS BLOOD SPECIMENOrdering Facility: [facility] Address: [address] [place] [address] Performed By: #### 2 4344-4 ####[facility]ORATORYCLIA [id number] [address] [place] CO2 (BldV) [Partial pressure] 47 mm[Hg] Normal 42-55 [facility] Comment on above: Order Comment: Speci men Type: VENOUS BLOOD SPECIMENOrdering Facility: [facility] Address: [address] [place] [address] Performed By: #### 2 4344-4 ####[facility] LABORATORYCLIA [id number] [address] CO2 adjusted to patient's actual temperature (BldV) [Partial pressure] 46 mmHg Normal 42-55 [facility] Comment on above: Order Comment: Speci men Type: VENOUS BLOOD SPECIMENOrdering Facility: [facility] Address: [address] [place] [address] Performed By: #### 2 4344-4 ####[facility]ORATORYCLIA [id number] [place] [address] [place] FIO2 75 % Normal [facility] Comment on above: Order Comment: Speci men Type: VENOUS BLOOD SPECIMENOrdering Facility: [facility] Address: [address] [place] [address] Performed By: #### 2 4344-4 ####[facility]ATORYCLIA [id number] [address] [place] Glucose [Mass/Vol] 156 mg/dL High 60-105 [facility] Center Comment on above: Order Comment: Speci men Type: VENOUS BLOOD SPECIMENOrdering Facility: [facility] Address: [address] [place] [address] Performed By: #### 2 4344-4 ####[facility] LABORATORYCLIA [id number] [address] [place] HCO3 (Bld) [Moles/Vol] 23 mmol/L Low 24-28 [facility] Comment on above: Order Comment: Speci men Type: VENOUS BLOOD SPECIMENOrdering Facility: [facility] Address: [address] [place] [address] Performed By: #### 2 4344-4 ####[facility]ORATORYCLIA [id number] [address] STATES OF [facility] Hematocrit (Bld) [Volume fraction] 25.8 % Low 39.0-51.0 [facility] Comment on above: Order Comment: Speci men Type: VENOUS BLOOD SPECIMENOrdering Facility: [facility] Address: [address] [place] [address] Performed By: #### 2 4344-4 ####[facility]ORATORYCLIA [id number] [address] [place] Hemoglobin (Bld) [Mass/Vol] 8.3 g/dL Low 13.0-17.0 [facility] Comment on above: Order Comment: Speci men Type: VENOUS BLOOD SPECIMENOrdering Facility: [facility] Address: [address] [place] [address] Performed By: #### 2 4344-4 ####[facility]ORATORYCLIA [id number] [address] [place] IPAP (CM H2O) 18 Normal [facility] Comment on above: Order Comment: Speci men Type: VENOUS BLOOD SPECIMENOrdering Facility: [facility] Address: [address] [place] [address] Performed By: #### 2 4344-4 ####[facility]ATORYCLIA [id number] [address] [place] Lactate [Moles/Vol] 1.0 mmol/L Normal 0.5-2.2 [facility] Comment on above: Order Comment: Speci men Type: VENOUS BLOOD SPECIMENOrdering Facility: [facility] Address: [address] [place] [address] Performed By: #### 2 4344-4 ####[facility]ATORYCLIA [id number] [address] [place] Methemoglobin (Bld) [Mass fraction] 1.3 % Normal 0.0-1.5 [facility] Comment on above: Order Comment: Speci men Type: VENOUS BLOOD SPECIMENOrdering Facility: [facility] Address: [address] [place] [address] Performed By: #### 2 4344-4 ####[facility]ORATORYCLIA [id number] [address] O2 THERAPY Positive Normal [facility] Comment on above: Order Comment: Speci men Type: VENOUS BLOOD SPECIMENOrdering Facility: [facility] Address: [address] [place] [address] Performed By: #### 2 4344-4 ####[facility]ATORYCLIA [id number] [address] [place] Oxygen (BldV) [Partial pressure] 123 mm[Hg] High 35-45 [facility] Comment on above: Order Comment: Speci men Type: VENOUS BLOOD SPECIMENOrdering Facility: [facility] Address: [address] [place] [address] Performed By: #### 2 4344-4 ####[facility]ATORYCLIA [id number] [address] Oxygen adjusted to patient's actual temperature (BldV) [Partial pressure] 121 mmHg High 35-45 [facility] Comment on above: Order Comment: Speci men Type: VENOUS BLOOD SPECIMENOrdering Facility: [facility] Address: [address] [place] [address] Performed By: #### 2 4344-4 ####[facility]ATORYCLIA [id number] [address] [place] Oxygen saturation in Venous blood 98 % High 60-85 [facility] Comment on above: Order Comment: Speci men Type: VENOUS BLOOD SPECIMENOrdering Facility: [facility] Address: [address] [place] [address] Performed By: #### 2 4344-4 ####[facility]ATORYCLIA [id number] [address] [place] Oxyhemoglobin (BldV) [Mass fraction] 95 % High 60-85 [facility] Comment on above: Order Comment: Speci men Type: VENOUS BLOOD SPECIMENOrdering Facility: [facility] Address: [address] [place] [address] Performed By: #### 2 4344-4 ####[facility]ATORYCLIA [id number] [address] [place] PEEP/CPAP 12 cmH2O Normal [facility] Comment on above: Order Comment: Speci men Type: VENOUS BLOOD SPECIMENOrdering Facility: [facility] Address: [address] [place] [address] Performed By: #### 2 4344-4 ####[facility]ATORYCLIA [id number] [address] [place] pH (BldV) 7.32 [pH] Normal 7.32-7.42 [facility] Comment on above: Order Comment: Speci men Type: VENOUS BLOOD SPECIMENOrdering Facility: [facility] Address: [address] [place] [address] Performed By: #### 2 4344-4 ####[facility]ATORYCLIA [id number] [address] [place] pH adjusted to patient's actual temperature (BldV) 7.32 Normal 7.32-7.42 [facility] Comment on above: Order Comment: Speci men Type: VENOUS BLOOD SPECIMENOrdering Facility: [facility] Address: [address] [place] [address] Performed By: #### 2 4344-4 ####[facility]ATORYCLIA [id number] [address] Potassium [Moles/Vol] 3.7 mmol/L Normal 3.5-5.0 [facility] Comment on above: Order Comment: Speci men Type: VENOUS BLOOD SPECIMENOrdering Facility: [facility] Address: [address] [place] [address] Performed By: #### 2 4344-4 ####[facility] LABORATORYCLIA [id number] [address] SET VENTILATOR RESPIRATORY RATE (BPM) 16 BPM Normal [facility] Comment on above: Order Comment: Speci men Type: VENOUS BLOOD SPECIMENOrdering Facility: [facility] Address: [address] [place] [address] Performed By: #### 2 4344-4 ####[facility]ATORYCLIA [id number] [address] STATES [facility] Sodium [Moles/Vol] 134 mmol/L Low 136-144 [facility] Comment on above: Order Comment: Speci men Type: VENOUS BLOOD SPECIMENOrdering Facility: [facility] Address: [address] [place] [address] Performed By: #### 2 4344-4 ####[facility]ATORYCLIA [id number] [address] HIGH SENSITIVITY TROPONIN To n 04-08-2025 Troponin T.cardiac High sensitivity method [Mass/Vol] 748 ng/L High <12 [facility] Comment on above: Order Comment: Speci men Type: BLOOD SPECIMENOrdering Facility: [facility] Address: [address] [place] [address] Performed By: #### H STNT ####[facility]ATORYCLIA [id number] [address] [place] Troponin T.cardiac High sensitivity method [Mass/Vol] 786 ng/L High <12 [facility] Comment on above: Order Comment: Speci men Type: BLOOD SPECIMENOrdering Facility: [facility] Address: [address] [place] [address] Performed By: #### H STNT ####[facility] INDIANACLIA [id number] [address] [place] Hgb Bld-mCncon 04-08-2025 Hemoglobin (Bld) [Mass/Vol] 7.6 g/dL Low 13.0-17.0 [facility] Comment on above: Order Comment: Speci men Type: BLOOD SPECIMENOrdering Facility: [facility] Address: [address] [place] [address] Performed By: #### 7 18-7 ####[facility] INDIANACLIA [id number] [address] [place] Magnesium SerPl-ncon 04-08 Magnesium [Mass/Vol] 2.5 mg/dL High 1.7-2.3 [facility] Comment on above: Order Comment: Speci men Type: BLOOD SPECIMENOrdering Facility: [facility] Address: [address] [place] [address] Performed By: #### 2 777-1, 58622-1, 99930-6, 3084-1, 08169-9, 2157-6 ####[facility] INDIANACLIA [id number] [address] STATES [facility] NT-proBNP SerPl[facility] Natriuretic peptide.B prohormone N-Terminal [Mass/Vol] 5119 pg/mL High <125 [facility] Comment on above: Order Comment: Speci men Type: BLOOD SPECIMENOrdering Facility: [facility] Address: [address] [place] [address] Performed By: #### 3 3762-6 ####[facility] INDIANACLIA [id number] [address] [place] PT panel Coag (PPP)on 2024 INR Coag (PPP) [Relative time] 1.0 {INR} Normal 0.9-1.3 [facility] Comment on above: Order Comment: Speci men Type: BLOOD SPECIMENOrdering Facility: [facility] Address: [address] [place] [address] Result Comment: Antionette min K Antagonist (VKA) Therapeutic Range: INR 2 to 3 (Target INR of 2.5)Note: For patients treated with VKA drugs, such as warfarin, the [place] [employer] 2012 Guideline recommends [...] al. Chest 2012, 141:7S-47SNishnidia RA, et al. [facility] 2017, 70: 252-289 Performed By: #### 3 4528-0, 01101-3 ####[facility]ORATORYCLIA [id number] [place] [address] [place] PT Coag (PPP) [Time] 10.9 s Normal 9.7-13.0 [facility] Comment on above: Order Comment: Jose Cruz johnson Type: BLOOD SPECIMENOrdering Facility: [facility] Address: [address] [place] [address] Performed By: #### 3 4528-0, 34163-7 ####[facility]ORATORYCLIA [id number] [place] [address] [place] Phosphate SerPl-mCncon 04-08 Phosphate [Mass/Vol] 4.8 mg/dL Normal 2.7-4.8 [facility] Comment on above: Order Comment: Jose Cruz johnson Type: BLOOD SPECIMENOrdering Facility: [facility] Address: [address] [place] [address] Performed By: #### 2 777-1, 39459-4, 79435-3, 3083-1, 57690-5, 2157-02 ####[facility]ATORYCLIA [id number] [place] [id number] [place] STATES OF [facility] Procalcitonin SerPl-mCncon 0 04-08-2025 Procalcitonin [Mass/Vol] 0.22 ng/mL High <0.09 [facility] Comment on above: Order Comment: Speci men Type: BLOOD SPECIMENOrdering Facility: [facility] Address: [address] [place] [address] Result Comment: For a guided interpretation of test results, please visit the Change in Procalcitonin Calculator, [email or web address]. Performed By: #### 2 777-1, 76224-6, 83553-9, 3083-1, 79869-2, 2157-02 ####[facility]ATORYCLIA [id number] [place] [id number] [place] [facility] Prot/Creat Uron 04-08-2025 Protein/Creatinine (U) [Mass ratio] 0.57 mg/mg High <0.15 [facility] Comment on above: Order Comment: Speci men Type: URINE SPECIMENOrdering Facility: [facility] Address: [address] [place] [address] Result Comment: Adul t Proteinuria Categories:<0.15 mg/mg is considered normal to mildly increased0.15 - 0.50 mg/mg is considered moderately increased>0.50 mg/mg is considered severely increasedKDIGO. (2013). KDIGO 2012 Clinical Practice Guideline for the Evaluation and Management of Chronic Kidney Disease. Official Journal of the International Society of Nephrology, 3(1), 1-150. Performed By: #### 3 5678-2, 2890-2 ####[facility]ATORYCLIA [id number] [place] [id number] [place] [facility] Protein/Creatinine (U) [Mass ratio]on 04-08-2025 Creatinine (U) [Mass/Vol] 100.3 mg/dL Normal 46.8-314.5 [facility] Comment on above: Order Comment: Speci men Type: URINE SPECIMENOrdering Facility: [facility] Address: [address] [place] [address] Performed By: #### 3 5678-2, 2890-2 ####[facility]ATORYCLIA [id number] [place] [id number] [place] [facility] Protein (U) [Mass/Vol] 57 mg/dL High 0-20 [facility] Comment on above: Order Comment: Speci men Type: URINE SPECIMENOrdering Facility: [facility] Address: [address] [place] [address] Performed By: #### 3 5678-2, 2890-2 ####[facility]ATORYCLIA [id number] [place] [id number] [facility] [place] Sodium ?Tm Ur-sCncon 025 Sodium Unsp time (U) [Moles/Vol] 26 mmol/L Normal 14-216 [facility] Comment on above: Order Comment: Speci men Type: URINE SPECIMENOrdering Facility: [facility] Address: [address] [place] [address] Performed By: #### 3 5678-2, 289-2 ####[facility]ATORYCLIA [id number] [place] [id number] [place] US ASCITES SURVEYon 04-08-20 25 US ASCITES SURVEY Normal [facility] Urate SerPl-mCncon 5 Urate [Mass/Vol] 6.4 mg/dL Normal 4.0-8.1 [facility] Comment on above: Order Comment: Speci men Type: BLOOD SPECIMENOrdering Facility: [facility] Address: [address] [place] [address] Performed By: #### 2 777-1, 98075-8, 82989-3, 3084-1, 41593-6, 2157-6 ####[facility]ATORYCLIA [id number] [address] [place] Urinalysis complete panel (U )on 04-08-2025 Bacteria LM.HPF (Urine sed) [#/Area] Moderate Abnormal None Seen [facility] Comment on above: Order Comment: Speci men Type: URINE SPECIMENOrdering Facility: [facility] Address: [address] [place] [address] Performed By: #### 2 4356-8 ####[facility]ATORYCLIA [id number] [place] [address] [place] Bilirubin Ql (U) Negative Normal Negative [facility] Comment on above: Order Comment: Speci men Type: URINE SPECIMENOrdering Facility: [facility] Address: [address] [place] [address] Performed By: #### 2 4356-8 ####[facility]ATORYCLIA [id number] [address] [place] Clarity (Unsp spec) Dense Turbid Abnormal Clear [facility] Comment on above: Order Comment: Speci men Type: URINE SPECIMENOrdering Facility: [facility] Address: [address] [place] [address] Performed By: #### 2 4356-8 ####[facility]ATORYCLIA [id number] [address] [place] Color (U) Light [place] Abnormal yellow [facility] Comment on above: Order Comment: Speci men Type: URINE SPECIMENOrdering Facility: [facility] Address: [address] [place] [address] Performed By: #### 2 4356-8 ####[facility]ATORYCLIA [id number] [address] [place] Epithelial cells LM.HPF (Urine sed) [#/Area] Few Normal [facility] Comment on above: Order Comment: Speci men Type: URINE SPECIMENOrdering Facility: [facility] Address: [address] [place] [address] Performed By: #### 2 4356-8 ####[facility]ATORYCLIA [id number] [address] [place] Glucose Test strip (U) [Mass/Vol] Negative Normal Trace, Negative [facility] Comment on above: Order Comment: Speci men Type: URINE SPECIMENOrdering Facility: [facility] Address: [address] [place] [address] Performed By: #### 2 4356-8 ####[facility]ORATORYCLIA [id number] [address] [place] Hemoglobin Ql (U) 3+ Abnormal Negative, Trace [facility] Comment on above: Order Comment: Speci men Type: URINE SPECIMENOrdering Facility: [facility] Address: [address] [place] [address] Performed By: #### 2 4356-8 ####[facility] LABORATORYCLIA [id number] [address] [place] Ketones Ql (U) Negative Normal Negative, Trace [facility] Comment on above: Order Comment: Speci men Type: URINE SPECIMENOrdering Facility: [facility] Address: [address] [place] [address] Performed By: #### 2 4356-8 ####[facility]ATORYCLIA [id number] [address] [place] Leukocyte esterase Test strip Ql (U) 75 Mayra/uL Abnormal Negative, 25 Mayra/uL [facility] Comment on above: Order Comment: Speci men Type: URINE SPECIMENOrdering Facility: [facility] Address: [address] [place] [address] Performed By: #### 2 4356-8 ####[facility]ORYCLIA [id number] [address] [place] Nitrite Ql (U) Negative Normal Negative [facility] Comment on above: Order Comment: Speci men Type: URINE SPECIMENOrdering Facility: [facility] Address: [address] [place] [address] Performed By: #### 2 4356-8 ####[facility]ORYCLIA [id number] [address] [place] pH (U) 5.0 [pH] Normal 5.0-8.0 [facility] Comment on above: Order Comment: Speci men Type: URINE SPECIMENOrdering Facility: [facility] Address: [address] [place] [address] Performed By: #### 2 4356-8 ####[facility]ATORYCLIA [id number] [address] Protein (U) [Mass/Vol] 1+ Abnormal Trace, Negative [facility] Comment on above: Order Comment: Speci men Type: URINE SPECIMENOrdering Facility: [facility] Address: [address] [place] [address] Performed By: #### 2 4356-8 ####[facility]ATORYCLIA [id number] [address] STATES [facility] RBC LM.HPF (Urine sed) [#/Area] /[HPF] Abnormal 0-3 /HPF [facility] Comment on above: Order Comment: Speci men Type: URINE SPECIMENOrdering Facility: [facility] Address: [address] [place] [address] Performed By: #### 2 4356-8 ####[facility]ATORYCLIA [id number] [address] Specific gravity (U) [Rel density] 1.016 Normal 1.005-1.030 [facility] Comment on above: Order Comment: Speci men Type: URINE SPECIMENOrdering Facility: [facility] Address: [address] [place] [address] Performed By: #### 2 4356-8 ####[facility]ATORYCLIA [id number] [address] Urobilinogen Ql (U) Normal Normal Normal [facility] Comment on above: Order Comment: Speci men Type: URINE SPECIMENOrdering Facility: [facility] Address: [address] [place] [address] Performed By: #### 2 4356-8 ####[facility]ATORYCLIA [id number] [address] [place] WBC LM.HPF (Urine sed) [#/Area] /[HPF] Abnormal 0-5 /HPF [facility] Comment on above: Order Comment: Speci men Type: URINE SPECIMENOrdering Facility: [facility] Address: [address] [place] [address] Performed By: #### 2 4356-8 ####[facility]ATORYCLIA [id number] [place] [address] [place] XR ABDOMEN 1V SUPINEon 04-08 XR ABDOMEN 1V SUPINE Normal [facility] XR CHEST 1V FRONTALon 2024 XR CHEST 1V FRONTAL Normal [facility] aPTT PPPon 04-08-2025 aPTT Coag (PPP) [Time] 70.0 s High 23.0-32.4 [facility] Comment on above: Order Comment: Speci men Type: BLOOD SPECIMENOrdering Facility: [facility] Address: [address] [place] [address] Performed By: #### 1 4979-9 ####[facility]ATORYCLIA [id number] [address] [place] aPTT Coag (PPP) [Time] 43.3 s High 23.0-32.4 [facility] Comment on above: Order Comment: Speci men Type: BLOOD SPECIMENOrdering Facility: [facility] Address: [address] [place] [address] Performed By: #### 1 4979-9 ####[facility]ATORYCLIA [id number] [place] [address] [place] aPTT Coag (PPP) [Time] 32.2 s Normal 23.0-32.4 [facility] Comment on above: Order Comment: Speci men Type: BLOOD SPECIMENOrdering Facility: [facility] Address: [address] [place] [address] Performed By: #### 3 4528-0, 42217-0 ####[facility]ATORYCLIA [id number] [place] [address] [place] Bacteria Spec Resp Culton Bacteria identified Respiratory culture Nom (Unsp spec) CULTURE, RESPIRATORY: Rare Normal respiratory doris present GRAM STAIN: No organisms seen Rare Polymorphonuclear leukocytes Few Epithelial cells Normal [facility] Comment on above: Performed By: #### 3 2355-0 ####[facility]ATORYCLIA [id number] [address] CBC panel Auto (Bld)on 04-07 Erythrocyte distribution width (RBC) [Ratio] 15.1 % High 11.5-15.0 [facility] Comment on above: Order Comment: Speci men Type: BLOOD SPECIMENOrdering Facility: [facility] Address: [address] [place] [address] Performed By: #### 5 8410-2 ####[facility]ATORYCLIA [id number] [address] Hematocrit (Bld) [Volume fraction] 30.3 % Low 39.0-51.0 [facility] Comment on above: Order Comment: Speci men Type: BLOOD SPECIMENOrdering Facility: [facility] Address: [address] [place] [address] Performed By: #### 5 8410-2 ####[facility]ORATORYCLIA [id number] [address] OF [facility] Hemoglobin (Bld) [Mass/Vol] 9.3 g/dL Low 13.0-17.0 [facility] Comment on above: Order Comment: Speci men Type: BLOOD SPECIMENOrdering Facility: [facility] Address: [address] [place] [address] Performed By: #### 5 8410-2 ####[facility]ORATORYCLIA [id number] [address] MCH (RBC) [Entitic mass] 27.2 pg Normal 26.0-34.0 [facility] Comment on above: Order Comment: Speci men Type: BLOOD SPECIMENOrdering Facility: [facility] Address: [address] [place] [address] Performed By: #### 5 8410-2 ####[facility]ORATORYCLIA [id number] [address] MCHC (RBC) [Mass/Vol] 30.7 g/dL Normal 30.5-36.0 [facility] Comment on above: Order Comment: Speci men Type: BLOOD SPECIMENOrdering Facility: [facility] Address: [address] [place] [address] Performed By: #### 5 8410-2 ####[facility]ORATORYCLIA [id number] [address] MCV (RBC) [Entitic vol] 88.6 fL Normal 80.0-100.0 [facility] Comment on above: Order Comment: Speci men Type: BLOOD SPECIMENOrdering Facility: [facility] Address: [address] [place] [address] Performed By: #### 5 8410-2 ####[facility]ATORYCLIA [id number] [address] [place] Nucleated RBC (Bld) [#/Vol] 10*3/uL Normal <0.01 [facility] Comment on above: Order Comment: Speci men Type: BLOOD SPECIMENOrdering Facility: [facility] Address: [address] [place] [address] Performed By: #### 5 8410-2 ####[facility]ATORYCLIA [id number] [address] Platelet mean volume (Bld) [Entitic vol] 10.8 fL Normal 9.0-12.7 [facility] Comment on above: Order Comment: Speci men Type: BLOOD SPECIMENOrdering Facility: [facility] Address: [address] [place] [address] Performed By: #### 5 8410-2 ####[facility]ATORYCLIA [id number] [address] [place] Platelets (Bld) [#/Vol] 225 10*3/uL Normal 150-400 [facility] Comment on above: Order Comment: Speci men Type: BLOOD SPECIMENOrdering Facility: [facility] Address: [address] [place] [address] Performed By: #### 5 8410-2 ####[facility]ORATORYCLIA [id number] [place] [address] [place] RBC (Bld) [#/Vol] 3.42 10*6/uL Low 4.20-6.00 [facility] Comment on above: Order Comment: Speci men Type: BLOOD SPECIMENOrdering Facility: [facility] Address: [address] [place] [address] Performed By: #### 5 8410-2 ####[facility] LABORATORYCLIA [id number] [address] [place] [facility] WBC (Bld) [#/Vol] 12.36 10*3/uL High 3.70-11.00 [facility] Comment on above: Order Comment: Speci men Type: BLOOD SPECIMENOrdering Facility: [facility] Address: [address] [place] [address] Performed By: #### 5 8410-2 ####[facility] LABORATORYCLIA [id number] [address] CONSULT PROGon 04-07-2025 CONSULT PROG Normal [facility] Comprehensive metabolic 2000 panelon 04-07-2025 Albumin [Mass/Vol] 3.6 g/dL Low 3.9-4.9 [facility] Comment on above: Order Comment: Speci men Type: BLOOD SPECIMENOrdering Facility: [facility] Address: [address] [place] [address] Performed By: #### 2 4323-8, 2777, ####[facility] [facility]ATORYCLIA [id number] [address] [place] ALP [Catalytic activity/Vol] 71 U/L Normal 38-113 [facility] Comment on above: Order Comment: Speci men Type: BLOOD SPECIMENOrdering Facility: [facility] Address: [address] [place] [address] Performed By: #### 2 4323-8, 2777-1, 50076-1 ####[facility]ATORYCLIA [id number] [address] [place] ALT With P-5'-P [Catalytic activity/Vol] 11 U/L Normal 10-54 [facility] Comment on above: Order Comment: Speci men Type: BLOOD SPECIMENOrdering Facility: [facility] Address: [address] [place] [address] Performed By: #### 2 4323-8, 2776-09, ####[facility]ATORYCLIA [id number] [address] [place] [facility] Anion gap [Moles/Vol] 17 mmol/L High 8-15 [facility] Comment on above: Order Comment: Speci men Type: BLOOD SPECIMENOrdering Facility: [facility] Address: [address] [place] [address] Performed By: #### 2 4323-8, 2776-09, ####[facility]ATORYCLIA [id number] [address] [place] [facility] AST With P-5'-P [Catalytic activity/Vol] 46 U/L High 14-40 [facility] Comment on above: Order Comment: Speci men Type: BLOOD SPECIMENOrdering Facility: [facility] Address: [address] [place] [address] Performed By: #### 2 4323-8, 2776-09, ####[facility]ATORYCLIA [id number] [address] [place] [facility] Bilirubin [Mass/Vol] 0.6 mg/dL Normal 0.2-1.3 [facility] Comment on above: Order Comment: Speci men Type: BLOOD SPECIMENOrdering Facility: [facility] Address: [address] [place] [address] Performed By: #### 2 4323-8, 2776-09, ####[facility]ATORYCLIA [id number] [address] [place] Calcium [Mass/Vol] 8.2 mg/dL Low 8.5-10.2 [facility] Comment on above: Order Comment: Speci men Type: BLOOD SPECIMENOrdering Facility: [facility] Address: [address] [place] [address] Performed By: #### 2 4323-8, 2776-09, ####[facility]ATORYCLIA [id number] [place] [id number] [place] Chloride [Moles/Vol] 99 mmol/L Normal 98-107 [facility] Comment on above: Order Comment: Speci men Type: BLOOD SPECIMENOrdering Facility: [facility] Address: [address] [place] [address] Performed By: #### 2 4323-8, 2776-09, ####[facility]ATORYCLIA [id number] [place] [address] [place] CO2 [Moles/Vol] 22 mmol/L Normal 22-30 [facility] Comment on above: Order Comment: Speci men Type: BLOOD SPECIMENOrdering Facility: [facility] Address: [address] [place] [address] Performed By: #### 2 4323-8, 2776-09, ####[facility]ATORYCLIA [id number] [place] [address] [place] Creatinine [Mass/Vol] 1.78 mg/dL High 0.73-1.22 [facility] Comment on above: Order Comment: Speci men Type: BLOOD SPECIMENOrdering Facility: [facility] Address: [address] [place] [address] Performed By: #### 2 4323-8, 2776-09, ####[facility]ATORYCLIA [id number] [place] [id number] [place] eGFRcr SerPlBld CKD-EPI 2020 40 mL/min/1.73m??? Low >=60 [facility] Comment on above: Order Comment: Speci men Type: BLOOD SPECIMENOrdering Facility: [facility] Address: [address] [place] [address] Result Comment: Mary Kay mated Glomerular Filtration [...] GFR. Performed By: #### 2 4323-8, 2777, ####[facility]ATORYCLIA [id number] [place] [address] [place] Glucose [Mass/Vol] 115 mg/dL High 74-99 [facility] Comment on above: Order Comment: Jose Cruz johnson Type: BLOOD SPECIMENOrdering Facility: [facility] Address: [address] [place] [address] Result Comment: The [place] Diabetes Association (ADA) provides guidance for cutoff [...] Standards of Medical Care in Diabetes 2016, [place] Diabetes Association. Diabetes Care. 2016.39(Suppl 1). Performed By: #### 2 4323-8, 2776-09, ####[facility]ATORYCLIA [id number] [place] [address] [place] Potassium [Moles/Vol] 4.1 mmol/L Normal 3.7-5.1 [facility] Comment on above: Order Comment: Jose Cruz johnson Type: BLOOD SPECIMENOrdering Facility: [facility] Address: [address] [place] [id number] Performed By: #### 2 4323-8, 2777, 98203-8 ####[facility]ATORYCLIA [id number] [place] [address] [place] Protein [Mass/Vol] 6.7 g/dL Normal 6.3-8.0 [facility] Comment on above: Order Comment: Speci men Type: BLOOD SPECIMENOrdering Facility: [facility] Address: [address] [place] [address] Performed By: #### 2 4323-8, 2776-09, ####[facility]ATORYCLIA [id number] [place] [address] [place] Sodium [Moles/Vol] 138 mmol/L Normal 136-144 [facility] Comment on above: Order Comment: Speci men Type: BLOOD SPECIMENOrdering Facility: [facility] Address: [address] [place] [address] Performed By: #### 2 4323-8, 2776-09, ####[facility]ATORYCLIA [id number] [address] [place] [facility] Urea nitrogen [Mass/Vol] 21 mg/dL Normal 9-24 [facility] Comment on above: Order Comment: Speci men Type: BLOOD SPECIMENOrdering Facility: [facility] Address: [address] [place] [address] Performed By: #### 2 4323-8, 2776-09, ####[facility]ORYCLIA [id number] [place] [address] [place] ECG COMPLETEon 04-07-2025 ECG COMPLETE Normal [facility] HIGH SENSITIVITY TROPONIN To n 04-07-2025 Troponin T.cardiac High sensitivity method [Mass/Vol] 810 ng/L High <12 [facility] Comment on above: Order Comment: Speci men Type: BLOOD SPECIMENOrdering Facility: [facility] Address: [address] [place] [address] Performed By: #### H STNT ####[facility]ATORYCLIA [id number] [place] [address] [place] Magnesium SerPl-mCncon 04-07 Magnesium [Mass/Vol] 1.9 mg/dL Normal 1.7-2.3 [facility] Comment on above: Order Comment: Speci men Type: BLOOD SPECIMENOrdering Facility: [facility] Address: [address] [place] [address] Performed By: #### 2 4323-8, 2776-09, ####[facility]ATORYCLIA [id number] [place] [address] [place] Phosphate SerPl-mCncon 04-07 Phosphate [Mass/Vol] 5.1 mg/dL High 2.7-4.8 [facility] Comment on above: Order Comment: Speci men Type: BLOOD SPECIMENOrdering Facility: [facility] Address: [address] [place] [address] Performed By: #### 2 4323-8, 2776-09, ####[facility]ATORYCLIA [id number] [address] [place] ALLIED HEALTHon 04-06-2025 ALLIED HEALTH Normal [facility] ARTERIAL BLOOD GASESon 04-06 Base excess Calc (Bld) [Moles/Vol] 1 mmol/L Normal 0-2 [facility] Comment on above: Order Comment: Speci men Type: ARTERIAL BLOOD SPECIMENOrdering Facility: [facility] Address: [address] [place] [address] Performed By: #### A LLBG ####[facility]ATORYCLIA [id number] [address] [place] Body temperature 99.5 [degF] Normal [facility] Comment on above: Order Comment: Speci men Type: ARTERIAL BLOOD SPECIMENOrdering Facility: [facility] Address: [address] [place] [address] Performed By: #### A LLBG ####[facility]ATORYCLIA [id number] [address] [place] Calcium.ionized (BldV) [Mass/Vol] 1.15 mmol/L Normal 1.08-1.30 [facility] Comment on above: Order Comment: Speci men Type: ARTERIAL BLOOD SPECIMENOrdering Facility: [facility] Address: [address] [place] [address] Performed By: #### A LLBG ####[facility]ATORYCLIA [id number] [address] Calcium.ionized adjusted to pH 7.4 (BldA) [Moles/Vol] 1.14 mmol/L Normal 1.08-1.30 [facility] Comment on above: Order Comment: Speci men Type: ARTERIAL BLOOD SPECIMENOrdering Facility: [facility] Address: [address] [place] [address] Performed By: #### A LLBG ####[facility]ATORYCLIA [id number] [address] Carboxyhemoglobin (BldA) [Mass fraction] 0.8 % Normal 0.0-2.0 [facility] Comment on above: Order Comment: Speci men Type: ARTERIAL BLOOD SPECIMENOrdering Facility: [facility] Address: [address] [place] [address] Result Comment: Carb oxyhemoglobin Reference Range for Smokers: 2.0-8.0% Performed By: #### A LLBG ####[facility]ATORYCLIA [id number] [address] [place] [facility] Chloride [Moles/Vol] 105 mmol/L Normal 97-105 [facility] Comment on above: Order Comment: Speci men Type: ARTERIAL BLOOD SPECIMENOrdering Facility: [facility] Address: [address] [place] [address] Performed By: #### A LLBG ####[facility]ATORYCLIA [id number] [address] [place] CO2 (Bld) [Partial pressure] 44 mm Hg Normal 36-46 [facility] Comment on above: Order Comment: Speci men Type: ARTERIAL BLOOD SPECIMENOrdering Facility: [facility] Address: [address] [place] [address] Performed By: #### A LLBG ####[facility]ATORYCLIA [id number] [address] CO2 adjusted to patient's actual temperature (Bld) [Partial pressure] 45 mmHg Normal 36-46 [facility] Comment on above: Order Comment: Speci men Type: ARTERIAL BLOOD SPECIMENOrdering Facility: [facility] Address: [address] [place] [address] Performed By: #### A LLBG ####[facility]ATORYCLIA [id number] [address] [place] FIO2 85 % Normal [facility] Comment on above: Order Comment: Speci men Type: ARTERIAL BLOOD SPECIMENOrdering Facility: [facility] Address: [address] [place] [address] Performed By: #### A LLBG ####[facility]ORYCLIA [id number] [address] Glucose [Mass/Vol] 130 mg/dL High 60-105 [facility] Comment on above: Order Comment: Speci men Type: ARTERIAL BLOOD SPECIMENOrdering Facility: [facility] Address: [address] [place] [address] Performed By: #### A LLBG ####[facility]ORYCLIA [id number] [address] [place] HCO3 (Bld) [Moles/Vol] 26 mmol/L Normal 22-26 [facility] Comment on above: Order Comment: Speci men Type: ARTERIAL BLOOD SPECIMENOrdering Facility: [facility] Address: [address] [place] [address] Performed By: #### A LLBG ####[facility]ORYCLIA [id number] [address] Hematocrit (Bld) [Volume fraction] 29.8 % Low 39.0-51.0 [facility] Comment on above: Order Comment: Speci men Type: ARTERIAL BLOOD SPECIMENOrdering Facility: [facility] Address: [address] [place] [address] Performed By: #### A LLBG ####[facility]ORYCLIA [id number] [address] [place] Hemoglobin (Bld) [Mass/Vol] 9.6 g/dL Low 13.0-17.0 [facility] Comment on above: Order Comment: Speci men Type: ARTERIAL BLOOD SPECIMENOrdering Facility: [facility] Address: [address] [place] [address] Performed By: #### A LLBG ####[facility]ORYCLIA [id number] [address] [place] Lactate [Moles/Vol] 0.8 mmol/L Normal 0.5-2.2 [facility] Comment on above: Order Comment: Speci men Type: ARTERIAL BLOOD SPECIMENOrdering Facility: [facility] Address: [address] [place] [address] Performed By: #### A LLBG ####[facility]ATORYCLIA [id number] [address] LITERS 60 Liters/min Normal [facility] Comment on above: Order Comment: Speci men Type: ARTERIAL BLOOD SPECIMENOrdering Facility: [facility] Address: [address] [place] [address] Performed By: #### A LLBG ####[facility]ORYCLIA [id number] [address] Methemoglobin (Bld) [Mass fraction] 1.0 % Normal 0.0-1.5 [facility] Comment on above: Order Comment: Speci men Type: ARTERIAL BLOOD SPECIMENOrdering Facility: [facility] Address: [address] [place] [address] Performed By: #### A LLBG ####[facility]ORYCLIA [id number] [address] O2 THERAPY Hi-Flow Nasal Cannula-Heated Normal [facility] Comment on above: Order Comment: Speci men Type: ARTERIAL BLOOD SPECIMENOrdering Facility: [facility] Address: [address] [place] [address] Performed By: #### A LLBG ####[facility]ATORYCLIA [id number] [address] [place] Oxygen (Bld) [Partial pressure] 65 mm Hg Low 85-95 [facility] Comment on above: Order Comment: Speci men Type: ARTERIAL BLOOD SPECIMENOrdering Facility: [facility] Address: [address] [place] [address] Performed By: #### A LLBG ####[facility] LABORATORYCLIA [id number] [address] [place] Oxygen adjusted to patient's actual temperature (Bld) [Partial pressure] 67 mmHg Low 85-95 [facility] Comment on above: Order Comment: Speci men Type: ARTERIAL BLOOD SPECIMENOrdering Facility: [facility] Address: [address] [place] [address] Performed By: #### A LLBG ####[facility]ORYCLIA [id number] [address] [place] Oxyhemoglobin (BldA) [Mass fraction] 89 % Low 95-98 [facility] Comment on above: Order Comment: Speci men Type: ARTERIAL BLOOD SPECIMENOrdering Facility: [facility] Address: [address] [place] [address] Performed By: #### A LLBG ####[facility]ORYCLIA [id number] [address] [place] pH (Bld) 7.39 [pH] Normal 7.35-7.45 [facility] Comment on above: Order Comment: Speci men Type: ARTERIAL BLOOD SPECIMENOrdering Facility: [facility] Address: [address] [place] [address] Performed By: #### A LLBG ####[facility] LABORATORYCLIA [id number] [address] [place] pH adjusted to patient's actual temperature (Bld) 7.38 Normal 7.35-7.45 [facility] Comment on above: Order Comment: Speci men Type: ARTERIAL BLOOD SPECIMENOrdering Facility: [facility] Address: [address] [place] [address] Performed By: #### A LLBG ####[facility]ORATORYCLIA [id number] [address] PO2 / FIO2 RATIO 76 mmHg Low >300 [facility] Comment on above: Order Comment: Speci men Type: ARTERIAL BLOOD SPECIMENOrdering Facility: [facility] Address: [address] [place] [address] Performed By: #### A LLBG ####[facility]ORYCLIA [id number] [address] [place] Potassium [Moles/Vol] 4.1 mmol/L Normal 3.5-5.0 [facility] Comment on above: Order Comment: Speci men Type: ARTERIAL BLOOD SPECIMENOrdering Facility: [facility] Address: [address] [place] [address] Performed By: #### A LLBG ####[facility]ATORYCLIA [id number] [address] [place] Sodium [Moles/Vol] 137 mmol/L Normal 136-144 [facility] Comment on above: Order Comment: Speci men Type: ARTERIAL BLOOD SPECIMENOrdering Facility: [facility] Address: [address] [place] [address] Performed By: #### A LLBG ####[facility]ORYCLIA [id number] [address] [place] Base excess Calc (Bld) [Moles/Vol] 1 mmol/L Normal 0-2 [facility] Comment on above: Order Comment: Speci men Type: ARTERIAL BLOOD SPECIMENOrdering Facility: [facility] Address: [address] [place] [address] Performed By: #### A LLBG ####[facility]ATORYCLIA [id number] [address] [place] Body temperature 99.14 [degF] Normal [facility] Comment on above: Order Comment: Speci men Type: ARTERIAL BLOOD SPECIMENOrdering Facility: [facility] Address: [address] [place] [address] Performed By: #### A LLBG ####[facility]ATORYCLIA [id number] [address] [place] Calcium.ionized (BldV) [Mass/Vol] 1.16 mmol/L Normal 1.08-1.30 [facility] Comment on above: Order Comment: Speci men Type: ARTERIAL BLOOD SPECIMENOrdering Facility: [facility] Address: [address] [place] [address] Performed By: #### A LLBG ####[facility]ATORYCLIA [id number] [address] Calcium.ionized adjusted to pH 7.4 (BldA) [Moles/Vol] 1.15 mmol/L Normal 1.08-1.30 [facility] Comment on above: Order Comment: Speci men Type: ARTERIAL BLOOD SPECIMENOrdering Facility: [facility] Address: [address] [place] [address] Performed By: #### A LLBG ####[facility]ATORYCLIA [id number] [address] [place] [facility] Carboxyhemoglobin (BldA) [Mass fraction] 0.7 % Normal 0.0-2.0 [facility] Comment on above: Order Comment: Speci men Type: ARTERIAL BLOOD SPECIMENOrdering Facility: [facility] Address: [address] [place] [address] Performed By: #### A LLBG ####[facility]ATORYCLIA [id number] [address] [place] Chloride [Moles/Vol] 106 mmol/L High 97-105 [facility] Comment on above: Order Comment: Speci men Type: ARTERIAL BLOOD SPECIMENOrdering Facility: [facility] Address: [address] [place] [address] Performed By: #### A LLBG ####[facility]ATORYCLIA [id number] [address] [place] CO2 (Bld) [Partial pressure] 43 mm Hg Normal 36-46 [facility] Comment on above: Order Comment: Speci men Type: ARTERIAL BLOOD SPECIMENOrdering Facility: [facility] Address: [address] [place] [address] Performed By: #### A LLBG ####[facility]ORATORYCLIA [id number] [address] CO2 adjusted to patient's actual temperature (Bld) [Partial pressure] 44 mmHg Normal 36-46 [facility] Comment on above: Order Comment: Speci men Type: ARTERIAL BLOOD SPECIMENOrdering Facility: [facility] Address: [address] [place] [address] Performed By: #### A LLBG ####[facility]ORATORYCLIA [id number] [address] [place] FIO2 100 % Normal [facility] Comment on above: Order Comment: Speci men Type: ARTERIAL BLOOD SPECIMENOrdering Facility: [facility] Address: [address] [place] [address] Performed By: #### A LLBG ####[facility]ORATORYCLIA [id number] [address] [place] Glucose [Mass/Vol] 150 mg/dL High 60-105 [facility] Comment on above: Order Comment: Speci men Type: ARTERIAL BLOOD SPECIMENOrdering Facility: [facility] Address: [address] [place] [address] Performed By: #### A LLBG ####[facility]ORATORYCLIA [id number] [address] [place] HCO3 (Bld) [Moles/Vol] 26 mmol/L Normal 22-26 [facility] Comment on above: Order Comment: Speci men Type: ARTERIAL BLOOD SPECIMENOrdering Facility: [facility] Address: [address] [place] [address] Performed By: #### A LLBG ####[facility]ORATORYCLIA [id number] [address] Hematocrit (Bld) [Volume fraction] 30.1 % Low 39.0-51.0 [facility] Comment on above: Order Comment: Speci men Type: ARTERIAL BLOOD SPECIMENOrdering Facility: [facility] Address: [address] [place] [address] Performed By: #### A LLBG ####[facility]ATORYCLIA [id number] [address] [place] Hemoglobin (Bld) [Mass/Vol] 9.7 g/dL Low 13.0-17.0 [facility] Comment on above: Order Comment: Speci men Type: ARTERIAL BLOOD SPECIMENOrdering Facility: [facility] Address: [address] [place] [address] Performed By: #### A LLBG ####[facility]ATORYCLIA [id number] [address] [place] Lactate [Moles/Vol] 1.2 mmol/L Normal 0.5-2.2 [facility] Comment on above: Order Comment: Speci men Type: ARTERIAL BLOOD SPECIMENOrdering Facility: [facility] Address: [address] [place] [address] Performed By: #### A LLBG ####[facility]ATORYCLIA [id number] [address] OF [facility] Methemoglobin (Bld) [Mass fraction] 0.9 % Normal 0.0-1.5 [facility] Comment on above: Order Comment: Speci men Type: ARTERIAL BLOOD SPECIMENOrdering Facility: [facility] Address: [address] [place] [address] Performed By: #### A LLBG ####[facility]ATORYCLIA [id number] [address] [place] O2 THERAPY NR=Non-Rebreather Mask Normal [facility] Comment on above: Order Comment: Speci men Type: ARTERIAL BLOOD SPECIMENOrdering Facility: [facility] Address: [address] [place] [address] Performed By: #### A LLBG ####[facility]ATORYCLIA [id number] [address] [place] Oxygen (Bld) [Partial pressure] 53 mm Hg Low 85-95 [facility] Comment on above: Order Comment: Speci men Type: ARTERIAL BLOOD SPECIMENOrdering Facility: [facility] Address: [address] [place] [address] Performed By: #### A LLBG ####[facility]ATORYCLIA [id number] [address] Oxygen adjusted to patient's actual temperature (Bld) [Partial pressure] 54 mmHg Low 85-95 [facility] Comment on above: Order Comment: Speci men Type: ARTERIAL BLOOD SPECIMENOrdering Facility: [facility] Address: [address] [place] [address] Performed By: #### A LLBG ####[facility]ATORYCLIA [id number] [address] Oxyhemoglobin (BldA) [Mass fraction] 84 % Low 95-98 [facility] Comment on above: Order Comment: Speci men Type: ARTERIAL BLOOD SPECIMENOrdering Facility: [facility] Address: [address] [place] [address] Performed By: #### A LLBG ####[facility]ATORYCLIA [id number] [address] [place] pH (Bld) 7.40 [pH] Normal 7.35-7.45 [facility] Comment on above: Order Comment: Speci men Type: ARTERIAL BLOOD SPECIMENOrdering Facility: [facility] Address: [address] [place] [address] Performed By: #### A LLBG ####[facility]ATORYCLIA [id number] [address] STATES [facility] pH adjusted to patient's actual temperature (Bld) 7.39 Normal 7.35-7.45 [facility] Comment on above: Order Comment: Speci men Type: ARTERIAL BLOOD SPECIMENOrdering Facility: [facility] Address: [address] [place] [address] Performed By: #### A LLBG ####[facility]ORATORYCLIA [id number] [address] [place] PO2 / FIO2 RATIO 53 mmHg Low >300 [facility] Comment on above: Order Comment: Speci men Type: ARTERIAL BLOOD SPECIMENOrdering Facility: [facility] Address: [address] [place] [address] Performed By: #### A LLBG ####[facility]ATORYCLIA [id number] [address] [place] Potassium [Moles/Vol] 4.3 mmol/L Normal 3.5-5.0 [facility] Comment on above: Order Comment: Speci men Type: ARTERIAL BLOOD SPECIMENOrdering Facility: [facility] Address: [address] [place] [address] Performed By: #### A LLBG ####[facility]ATORYCLIA [id number] [address] [place] Sodium [Moles/Vol] 138 mmol/L Normal 136-144 [facility] Comment on above: Order Comment: Speci men Type: ARTERIAL BLOOD SPECIMENOrdering Facility: [facility] Address: [address] [place] [address] Performed By: #### A LLBG ####[facility] LABORATORYCLIA [id number] [address] [place] Base excess Calc (Bld) [Moles/Vol] 0 mmol/L Normal 0-2 [facility] Comment on above: Order Comment: Speci men Type: ARTERIAL BLOOD SPECIMENOrdering Facility: [facility] Address: [address] [place] [address] Performed By: #### A LLBG ####[facility] LABORATORYCLIA [id number] [address] [place] Body temperature 99.86 [degF] Normal [facility] Comment on above: Order Comment: Speci men Type: ARTERIAL BLOOD SPECIMENOrdering Facility: [facility] Address: [address] [place] [address] Performed By: #### A LLBG ####[facility] LABORATORYCLIA [id number] [address] [place] Calcium.ionized (BldV) [Mass/Vol] 1.23 mmol/L Normal 1.08-1.30 [facility] Comment on above: Order Comment: Speci men Type: ARTERIAL BLOOD SPECIMENOrdering Facility: [facility] Address: [address] [place] [address] Performed By: #### A LLBG ####[facility] LABORATORYCLIA [id number] [place] [address] [place] Calcium.ionized adjusted to pH 7.4 (BldA) [Moles/Vol] 1.22 mmol/L Normal 1.08-1.30 [facility] Comment on above: Order Comment: Speci men Type: ARTERIAL BLOOD SPECIMENOrdering Facility: [facility] Address: [address] [place] [address] Performed By: #### A LLBG ####[facility] LABORATORYCLIA [id number] [address] [place] Carboxyhemoglobin (BldA) [Mass fraction] 1.1 % Normal 0.0-2.0 [facility] Comment on above: Order Comment: Speci men Type: ARTERIAL BLOOD SPECIMENOrdering Facility: [facility] Address: [address] [place] [address] Result Comment: Carb oxyhemoglobin Reference Range for Smokers: 2.0-8.0% Performed By: #### A LLBG ####[facility] LABORATORYCLIA [id number] [place] [address] [place] Chloride [Moles/Vol] 105 mmol/L Normal 97-105 [facility] Comment on above: Order Comment: Speci men Type: ARTERIAL BLOOD SPECIMENOrdering Facility: [facility] Address: [address] [place] [address] Performed By: #### A LLBG ####[facility] LABORATORYCLIA [id number] [place] [address] [place] CO2 (Bld) [Partial pressure] 42 mm Hg Normal 36-46 [facility] Comment on above: Order Comment: Speci men Type: ARTERIAL BLOOD SPECIMENOrdering Facility: [facility] Address: [address] [place] [address] Performed By: #### A LLBG ####[facility] LABORATORYCLIA [id number] [address] [place] CO2 adjusted to patient's actual temperature (Bld) [Partial pressure] 43 mmHg Normal 36-46 [facility] Comment on above: Order Comment: Speci men Type: ARTERIAL BLOOD SPECIMENOrdering Facility: [facility] Address: [address] [place] [address] Performed By: #### A LLBG ####[facility] LABORATORYCLIA [id number] [address] [place] Glucose [Mass/Vol] 136 mg/dL High 60-105 [facility] Comment on above: Order Comment: Speci men Type: ARTERIAL BLOOD SPECIMENOrdering Facility: [facility] Address: [address] [place] [address] Performed By: #### A LLBG ####[facility] LABORATORYCLIA [id number] [address] [place] HCO3 (Bld) [Moles/Vol] 25 mmol/L Normal 22-26 [facility] Comment on above: Order Comment: Speci men Type: ARTERIAL BLOOD SPECIMENOrdering Facility: [facility] Address: [address] [place] [address] Performed By: #### A LLBG ####[facility] LABORATORYCLIA [id number] [address] [place] Hematocrit (Bld) [Volume fraction] 32.2 % Low 39.0-51.0 [facility] Comment on above: Order Comment: Speci men Type: ARTERIAL BLOOD SPECIMENOrdering Facility: [facility] Address: [address] [place] [address] Performed By: #### A LLBG ####[facility] LABORATORYCLIA [id number] [address] [place] Hemoglobin (Bld) [Mass/Vol] 10.4 g/dL Low 13.0-17.0 [facility] Comment on above: Order Comment: Speci men Type: ARTERIAL BLOOD SPECIMENOrdering Facility: [facility] Address: [address] [place] [address] Performed By: #### A LLBG ####[facility] LABORATORYCLIA [id number] [address] [place] Lactate [Moles/Vol] 1.3 mmol/L Normal 0.5-2.2 [facility] Comment on above: Order Comment: Speci men Type: ARTERIAL BLOOD SPECIMENOrdering Facility: [facility] Address: [address] [place] [address] Performed By: #### A LLBG ####[facility] LABORATORYCLIA [id number] [address] [place] Methemoglobin (Bld) [Mass fraction] 1.0 % Normal 0.0-1.5 [facility] Comment on above: Order Comment: Speci men Type: ARTERIAL BLOOD SPECIMENOrdering Facility: [facility] Address: [address] [place] [address] Performed By: #### A LLBG ####[facility] LABORATORYCLIA [id number] [address] [place] O2 THERAPY [place] = Nasal Cannula Normal [facility] Comment on above: Order Comment: Speci men Type: ARTERIAL BLOOD SPECIMENOrdering Facility: [facility] Address: [address] [place] [address] Result Comment: 9 l Performed By: #### A LLBG ####[facility] LABORATORYCLIA [id number] [address] [place] Oxygen (Bld) [Partial pressure] 55 mm Hg Low 85-95 [facility] Comment on above: Order Comment: Speci men Type: ARTERIAL BLOOD SPECIMENOrdering Facility: [facility] Address: [address] [place] [address] Performed By: #### A LLBG ####[facility] LABORATORYCLIA [id number] [address] [place] Oxygen adjusted to patient's actual temperature (Bld) [Partial pressure] 58 mmHg Low 85-95 [facility] Comment on above: Order Comment: Speci men Type: ARTERIAL BLOOD SPECIMENOrdering Facility: [facility] Address: [address] [place] [address] Performed By: #### A LLBG ####[facility] LABORATORYCLIA [id number] [address] Oxyhemoglobin (BldA) [Mass fraction] 85 % Low 95-98 [facility] Comment on above: Order Comment: Speci men Type: ARTERIAL BLOOD SPECIMENOrdering Facility: [facility] Address: [address] [place] [address] Performed By: #### A LLBG ####[facility] LABORATORYCLIA [id number] [place] [address] [place] pH (Bld) 7.39 [pH] Normal 7.35-7.45 [facility] Comment on above: Order Comment: Speci men Type: ARTERIAL BLOOD SPECIMENOrdering Facility: [facility] Address: [address] [place] [address] Performed By: #### A LLBG ####[facility] LABORATORYCLIA [id number] [address] [place] pH adjusted to patient's actual temperature (Bld) 7.38 Normal 7.35-7.45 [facility] Comment on above: Order Comment: Speci men Type: ARTERIAL BLOOD SPECIMENOrdering Facility: [facility] Address: [address] [place] [address] Performed By: #### A LLBG ####[facility] LABORATORYCLIA [id number] [place] [address] [place] Potassium [Moles/Vol] 4.3 mmol/L Normal 3.5-5.0 [facility] Comment on above: Order Comment: Speci men Type: ARTERIAL BLOOD SPECIMENOrdering Facility: [facility] Address: [address] [place] [address] Performed By: #### A LLBG ####[facility] LABORATORYCLIA [id number] [place] [address] [place] Sodium [Moles/Vol] 142 mmol/L Normal 136-144 [facility] Comment on above: Order Comment: Speci men Type: ARTERIAL BLOOD SPECIMENOrdering Facility: [facility] Address: [address] [place] [address] Performed By: #### A LLBG ####[facility] LABORATORYCLIA [id number] [address] STATES OF [facility] Bacteria Bld Culton 04-06-20 25 Bacteria identified Cx Nom (Bld) CULTURE, BLOOD: No growth 5 days Normal [facility] Comment on above: Performed By: #### 6 00-7 ####[facility] LABORATORYCLIA [id number] [address] Bacteria identified Cx Nom (Bld) CULTURE, BLOOD: No growth 5 days Normal [facility] Comment on above: Performed By: #### 6 00-7 ####[facility] LABORATORYCLIA [id number] [place] [address] [place] Bacteria Ur Culton 5 Bacteria identified Cx Nom (U) CULTURE, URINE: No growth (<1,000 CFU/ml) Normal [facility] Comment on above: Performed By: #### 2 4356-8, 630-4 ####[facility] LABORATORYCLIA [id number] [place] [address] [place] Basic metabolic 2000 panelon 04-06-2025 Anion gap [Moles/Vol] 13 mmol/L Normal 8-15 [facility] Comment on above: Order Comment: Speci men Type: BLOOD SPECIMENOrdering Facility: [facility] Address: [address] [place] [address] Performed By: #### 2 4321-2, 65311-0 ####[facility] LABORATORYCLIA [id number] [address] [place] Calcium [Mass/Vol] 8.9 mg/dL Normal 8.5-10.2 [facility] Comment on above: Order Comment: Speci men Type: BLOOD SPECIMENOrdering Facility: [facility] Address: [address] [place] [address] Performed By: #### 2 4321-2, 95570-4 ####[facility] LABORATORYCLIA [id number] [place] [address] [place] Chloride [Moles/Vol] 103 mmol/L Normal 98-107 [facility] Comment on above: Order Comment: Speci men Type: BLOOD SPECIMENOrdering Facility: [facility] Address: [address] [place] [address] Performed By: #### 2 4321-2, 08250-3 ####[facility] LABORATORYCLIA [id number] [place] [address] [place] CO2 [Moles/Vol] 22 mmol/L Normal 22-30 [facility] Comment on above: Order Comment: Speci men Type: BLOOD SPECIMENOrdering Facility: [facility] Address: [address] [place] [address] Performed By: #### 2 4321-2, 12877-4 ####[facility] LABORATORYCLIA [id number] [address] [place] Creatinine [Mass/Vol] 1.14 mg/dL Normal 0.73-1.22 [facility] Comment on above: Order Comment: Speci men Type: BLOOD SPECIMENOrdering Facility: [facility] Address: [address] [place] [address] Performed By: #### 2 4321-2, 09575-1 ####[facility] LABORATORYCLIA [id number] [address] [place] eGFRcr SerPlBld CKD-EPI 2020 68 mL/min/1.73m??? Normal >=60 [facility] Comment on above: Order Comment: Speci men Type: BLOOD SPECIMENOrdering Facility: [facility] Address: [address] [place] [address] Result Comment: Mary Kay mated Glomerular Filtration [...] actual GFR. Performed By: #### 2 4321-2, 89785-7 ####[facility] LABORATORYCLIA [id number] [place] [address] [place] Glucose [Mass/Vol] 143 mg/dL High 74-99 [facility] Comment on above: Order Comment: Jose Cruz johnson Type: BLOOD SPECIMENOrdering Facility: [facility] Address: [address] [place] [address] Result Comment: The [place] Diabetes Association (ADA) provides guidance for cutoff [...] Standards of Medical Care in Diabetes 2016, [place] Diabetes Association. Diabetes Care. 2016.39(Suppl 1). Performed By: #### 2 4321-2, 31059-9 ####[facility] LABORATORYCLIA [id number] [place] [address] [place] Potassium [Moles/Vol] 4.6 mmol/L Normal 3.7-5.1 [facility] Comment on above: Order Comment: Jose Cruz johnson Type: BLOOD SPECIMENOrdering Facility: [facility] Address: [address] [place] [address] Performed By: #### 2 4321-2, 23594-2 ####[facility] LABORATORYCLIA [id number] [place] [id number] [place] Sodium [Moles/Vol] 138 mmol/L Normal 136-144 [facility] Comment on above: Order Comment: Jose Cruz johnson Type: BLOOD SPECIMENOrdering Facility: [facility] Address: [address] [place] [address] Performed By: #### 2 4321-2, 94610-6 ####[facility] LABORATORYCLIA [id number] [place] [id number] [place] Urea nitrogen [Mass/Vol] 17 mg/dL Normal 9-24 [facility] Comment on above: Order Comment: Speci men Type: BLOOD SPECIMENOrdering Facility: [facility] Address: [address] [place] [address] Performed By: #### 2 4321-2, 12879-9 ####[facility] LABORATORYCLIA [id number] [place] [address] [place] CASE MANAGEMon 04-06-2025 CASE MANAGEM Normal [facility] CBC W Auto Differential pane l (Bld)on 04-06-2025 Basophils (Bld) [#/Vol] 0.04 10*3/uL Normal <0.11 [facility] Comment on above: Order Comment: Speci men Type: BLOOD SPECIMENOrdering Facility: [facility] Address: [address] [place] [address] Performed By: #### 5 7021-8 ####[facility] LABORATORYCLIA [id number] [address] [place] Basophils/100 WBC (Bld) 0.3 % Normal [facility] Comment on above: Order Comment: Speci men Type: BLOOD SPECIMENOrdering Facility: [facility] Address: [address] [place] [address] Performed By: #### 5 7021-8 ####[facility] LABORATORYCLIA [id number] [address] [place] Differential cell count method Nom (Bld) Auto Normal [facility] Comment on above: Order Comment: Speci men Type: BLOOD SPECIMENOrdering Facility: [facility] Address: [address] [place] [address] Performed By: #### 5 7021-8 ####[facility] LABORATORYCLIA [id number] [place] [address] [place] Eosinophils (Bld) [#/Vol] 10*3/uL Normal <0.46 [facility] Comment on above: Order Comment: Speci men Type: BLOOD SPECIMENOrdering Facility: [facility] Address: [address] [place] [address] Performed By: #### 5 7021-8 ####[facility] LABORATORYCLIA [id number] [address] Eosinophils/100 WBC (Bld) 0.0 % Normal [facility] Comment on above: Order Comment: Speci men Type: BLOOD SPECIMENOrdering Facility: [facility] Address: [address] [place] [address] Performed By: #### 5 7021-8 ####[facility] LABORATORYCLIA [id number] [address] Erythrocyte distribution width (RBC) [Ratio] 14.7 % Normal 11.5-15.0 [facility] Comment on above: Order Comment: Speci men Type: BLOOD SPECIMENOrdering Facility: [facility] Address: [address] [place] [address] Performed By: #### 5 7021-8 ####[facility] LABORATORYCLIA [id number] [address] Hematocrit (Bld) [Volume fraction] 32.9 % Low 39.0-51.0 [facility] Comment on above: Order Comment: Speci men Type: BLOOD SPECIMENOrdering Facility: [facility] Address: [address] [place] [address] Performed By: #### 5 7021-8 ####[facility] LABORATORYCLIA [id number] [address] Hemoglobin (Bld) [Mass/Vol] 10.1 g/dL Low 13.0-17.0 [facility] Comment on above: Order Comment: Speci men Type: BLOOD SPECIMENOrdering Facility: [facility] Address: [address] [place] [address] Performed By: #### 5 7021-8 ####[facility] LABORATORYCLIA [id number] [address] [place] Immature granulocytes (Bld) [#/Vol] 0.07 10*3/uL Normal <0.10 [facility] Comment on above: Order Comment: Speci men Type: BLOOD SPECIMENOrdering Facility: [facility] Address: [address] [place] [address] Performed By: #### 5 7021-8 ####[facility] LABORATORYCLIA [id number] [address] Immature granulocytes/100 WBC (Bld) 0.5 % Normal [facility] Comment on above: Order Comment: Speci men Type: BLOOD SPECIMENOrdering Facility: [facility] Address: [address] [place] [address] Performed By: #### 5 7021-8 ####[facility] LABORATORYCLIA [id number] [address] Lymphocytes (Bld) [#/Vol] 0.84 10*3/uL Low 1.00-4.00 [facility] Comment on above: Order Comment: Speci men Type: BLOOD SPECIMENOrdering Facility: [facility] Address: [address] [place] [address] Performed By: #### 5 7021-8 ####[facility] LABORATORYCLIA [id number] [address] Lymphocytes/100 WBC (Bld) 6.0 % Normal [facility] Comment on above: Order Comment: Speci men Type: BLOOD SPECIMENOrdering Facility: [facility] Address: [address] [place] [address] Performed By: #### 5 7021-8 ####[facility] LABORATORYCLIA [id number] [address] STATES [facility] MCH (RBC) [Entitic mass] 26.7 pg Normal 26.0-34.0 [facility] Comment on above: Order Comment: Speci men Type: BLOOD SPECIMENOrdering Facility: [facility] Address: [address] [place] [address] Performed By: #### 5 7021-8 ####[facility] LABORATORYCLIA [id number] [address] [place] MCHC (RBC) [Mass/Vol] 30.7 g/dL Normal 30.5-36.0 [facility] Comment on above: Order Comment: Speci men Type: BLOOD SPECIMENOrdering Facility: [facility] Address: [address] [place] [address] Performed By: #### 5 7021-8 ####[facility] LABORATORYCLIA [id number] [address] [place] MCV (RBC) [Entitic vol] 87.0 fL Normal 80.0-100.0 [facility] Comment on above: Order Comment: Speci men Type: BLOOD SPECIMENOrdering Facility: [facility] Address: [address] [place] [address] Performed By: #### 5 7021-8 ####[facility]ORATORYCLIA [id number] [address] [place] Monocytes (Bld) [#/Vol] 0.91 10*3/uL High <0.87 [facility] Comment on above: Order Comment: Speci men Type: BLOOD SPECIMENOrdering Facility: [facility] Address: [address] [place] [address] Performed By: #### 5 7021-8 ####[facility]ORATORYCLIA [id number] [address] STATES [facility] Monocytes/100 WBC (Bld) 6.5 % Normal [facility] Comment on above: Order Comment: Speci men Type: BLOOD SPECIMENOrdering Facility: [facility] Address: [address] [place] [address] Performed By: #### 5 7021-8 ####[facility]ORATORYCLIA [id number] [address] [place] Neutrophils (Bld) [#/Vol] 12.14 10*3/uL High 1.45-7.50 [facility] Comment on above: Order Comment: Speci men Type: BLOOD SPECIMENOrdering Facility: [facility] Address: [address] [place] [address] Performed By: #### 5 7021-8 ####[facility]ORATORYCLIA [id number] [address] [place] Neutrophils/100 WBC (Bld) 86.7 % Normal [facility] Comment on above: Order Comment: Speci men Type: BLOOD SPECIMENOrdering Facility: [facility] Address: [address] [place] [address] Performed By: #### 5 7021-8 ####[facility]ORATORYCLIA [id number] [address] [place] Nucleated RBC (Bld) [#/Vol] 10*3/uL Normal <0.01 [facility] Comment on above: Order Comment: Speci men Type: BLOOD SPECIMENOrdering Facility: [facility] Address: [address] [place] [address] Performed By: #### 5 7021-8 ####[facility]ORATORYCLIA [id number] [address] [place] Nucleated RBC/100 WBC (Bld) [Ratio] 0.0 /100 WBC Normal [facility] Comment on above: Order Comment: Speci men Type: BLOOD SPECIMENOrdering Facility: [facility] Address: [address] [place] [address] Performed By: #### 5 7021-8 ####[facility]ORATORYCLIA [id number] [place] [address] [place] Platelet mean volume (Bld) [Entitic vol] 10.3 fL Normal 9.0-12.7 [facility] Comment on above: Order Comment: Speci men Type: BLOOD SPECIMENOrdering Facility: [facility] Address: [address] [place] [address] Performed By: #### 5 7021-8 ####[facility]ORATORYCLIA [id number] [place] [address] [place] Platelets (Bld) [#/Vol] 255 10*3/uL Normal 150-400 [facility] Comment on above: Order Comment: Speci men Type: BLOOD SPECIMENOrdering Facility: [facility] Address: [address] [place] [address] Performed By: #### 5 7021-8 ####[facility]ATORYCLIA [id number] [address] STATES OF [facility] RBC (Bld) [#/Vol] 3.78 10*6/uL Low 4.20-6.00 [facility] Comment on above: Order Comment: Speci men Type: BLOOD SPECIMENOrdering Facility: [facility] Address: [address] [place] [address] Performed By: #### 5 7021-8 ####[facility]ORATORYCLIA [id number] [address] [place] WBC (Bld) [#/Vol] 14.00 10*3/uL High 3.70-11.00 [facility] Comment on above: Order Comment: Speci men Type: BLOOD SPECIMENOrdering Facility: [facility] Address: [address] [place] [address] Performed By: #### 5 7021-8 ####[facility]ORATORYCLIA [id number] [address] OF [facility] CBC panel Auto (Bld)on 04-06 Erythrocyte distribution width (RBC) [Ratio] 14.6 % Normal 11.5-15.0 [facility] Comment on above: Order Comment: Speci men Type: BLOOD SPECIMENOrdering Facility: [facility] Address: [address] [place] [address] Performed By: #### 5 8410-2 ####[facility]ORATORYCLIA [id number] [address] Hematocrit (Bld) [Volume fraction] 30.6 % Low 39.0-51.0 [facility] Comment on above: Order Comment: Speci men Type: BLOOD SPECIMENOrdering Facility: [facility] Address: [address] [place] [address] Performed By: #### 5 8410-2 ####[facility]ORATORYCLIA [id number] [address] STATES OF [facility] Hemoglobin (Bld) [Mass/Vol] 9.5 g/dL Low 13.0-17.0 [facility] Comment on above: Order Comment: Speci men Type: BLOOD SPECIMENOrdering Facility: [facility] Address: [address] [place] [address] Performed By: #### 5 8410-2 ####[facility]ATORYCLIA [id number] [address] MCH (RBC) [Entitic mass] 26.7 pg Normal 26.0-34.0 [facility] Comment on above: Order Comment: Speci men Type: BLOOD SPECIMENOrdering Facility: [facility] Address: [address] [place] [address] Performed By: #### 5 8410-2 ####[facility]ATORYCLIA [id number] [address] MCHC (RBC) [Mass/Vol] 31.0 g/dL Normal 30.5-36.0 [facility] Comment on above: Order Comment: Speci men Type: BLOOD SPECIMENOrdering Facility: [facility] Address: [address] [place] [address] Performed By: #### 5 8410-2 ####[facility]ATORYCLIA [id number] [address] MCV (RBC) [Entitic vol] 86.0 fL Normal 80.0-100.0 [facility] Comment on above: Order Comment: Speci men Type: BLOOD SPECIMENOrdering Facility: [facility] Address: [address] [place] [address] Performed By: #### 5 8410-2 ####[facility]ATORYCLIA [id number] [address] Nucleated RBC (Bld) [#/Vol] 10*3/uL Normal <0.01 [facility] Comment on above: Order Comment: Speci men Type: BLOOD SPECIMENOrdering Facility: [facility] Address: [address] [place] [address] Performed By: #### 5 8410-2 ####[facility] LABORATORYCLIA [id number] [address] Platelet mean volume (Bld) [Entitic vol] 10.1 fL Normal 9.0-12.7 [facility] Comment on above: Order Comment: Speci men Type: BLOOD SPECIMENOrdering Facility: [facility] Address: [facility] [place] [address] Performed By: #### 5 8410-2 ####[facility] LABORATORYCLIA [id number] [address] [place] Platelets (Bld) [#/Vol] 229 10*3/uL Normal 150-400 [facility] Comment on above: Order Comment: Speci men Type: BLOOD SPECIMENOrdering Facility: [facility] Address: [address] [place] [address] Performed By: #### 5 8410-2 ####[facility] LABORATORYCLIA [id number] [place] [address] [place] RBC (Bld) [#/Vol] 3.56 10*6/uL Low 4.20-6.00 [facility] Comment on above: Order Comment: Speci men Type: BLOOD SPECIMENOrdering Facility: [facility] Address: [address] [place] [address] Performed By: #### 5 8410-2 ####[facility] LABORATORYCLIA [id number] [address] [place] WBC (Bld) [#/Vol] 13.31 10*3/uL High 3.70-11.00 [facility] Comment on above: Order Comment: Speci men Type: BLOOD SPECIMENOrdering Facility: [facility] Address: [address] [place] [address] Performed By: #### 5 8410-2 ####[facility] LABORATORYCLIA [id number] [address] CONSULT PROGon 04-06-2025 CONSULT PROG Normal [facility] CONSULT PROG Normal [facility] CONSULT PROG Normal [facility] CONSULT PROG Normal [facility] CTA CHEST (NON GATED) W IVCO N PEon 04-06-2025 CTA CHEST (NON GATED) W IVCON PE Normal [facility] Comprehensive metabolic 2000 panelon 04-06-2025 Albumin [Mass/Vol] 4.1 g/dL Normal 3.9-4.9 [facility] Comment on above: Order Comment: Speci men Type: BLOOD SPECIMENOrdering Facility: [facility] Address: [address] [place] [address] Performed By: #### 3 3959-8, 5195-3, 08952-8, 10190-0 ####[facility]ORATORYCLIA [id number] [address] [place] ALP [Catalytic activity/Vol] 74 U/L Normal 38-113 [facility] Comment on above: Order Comment: Speci men Type: BLOOD SPECIMENOrdering Facility: [facility] Address: [address] [place] [address] Performed By: #### 3 3959-8, 5195-3, 87317-6, 23026-2 ####[facility]ORATORYCLIA [id number] [place] [address] [place] ALT With P-5'-P [Catalytic activity/Vol] 9 U/L Low 10-54 [facility] Comment on above: Order Comment: Speci men Type: BLOOD SPECIMENOrdering Facility: [facility] Address: [address] [place] [address] Performed By: #### 3 3959-8, 5195-3, 42364-7, 53628-2 ####[facility]ORATORYCLIA [id number] [address] [place] Anion gap [Moles/Vol] 12 mmol/L Normal 8-15 [facility] Comment on above: Order Comment: Speci men Type: BLOOD SPECIMENOrdering Facility: [facility] Address: [address] [place] [address] Performed By: #### 3 3959-8, 5195-3, 63925-3, 00776-0 ####[facility]ATORYCLIA [id number] [place] [address] [place] AST With P-5'-P [Catalytic activity/Vol] 27 U/L Normal 14-40 [facility] Comment on above: Order Comment: Speci men Type: BLOOD SPECIMENOrdering Facility: [facility] Address: [address] [place] [address] Performed By: #### 3 3959-8, 5195-3, 46882-5, 63731-9 ####[facility]ATORYCLIA [id number] [place] [address] [place] Bilirubin [Mass/Vol] 0.3 mg/dL Normal 0.2-1.3 [facility] Comment on above: Order Comment: Speci men Type: BLOOD SPECIMENOrdering Facility: [facility] Address: [address] [place] [address] Performed By: #### 3 3959-8, 5195-3, 21878-1, 09165-2 ####[facility]ATORYCLIA [id number] [place] [address] [place] Calcium [Mass/Vol] 8.7 mg/dL Normal 8.5-10.2 [facility] Comment on above: Order Comment: Speci men Type: BLOOD SPECIMENOrdering Facility: [facility] Address: [address] [place] [address] Performed By: #### 3 3959-8, 5195-3, 57734-0, 62134-1 ####[facility]ORATORYCLIA [id number] [place] [id number] [place] Chloride [Moles/Vol] 103 mmol/L Normal 98-107 [facility] Comment on above: Order Comment: Speci men Type: BLOOD SPECIMENOrdering Facility: [facility] Address: [address] [place] [address] Performed By: #### 3 3959-8, 5195-3, 31645-0, 48133-5 ####[facility] INDIANACLIA [id number] [place] [address] [place] CO2 [Moles/Vol] 23 mmol/L Normal 22-30 [facility] Comment on above: Order Comment: Speci men Type: BLOOD SPECIMENOrdering Facility: [facility] Address: [address] [place] [address] Performed By: #### 3 3959-8, 5195-3, 38613-9, 75522-7 ####[facility] INDIANACLIA [id number] [place] [id number] [place] Creatinine [Mass/Vol] 1.11 mg/dL Normal 0.73-1.22 [facility] Comment on above: Order Comment: Speci men Type: BLOOD SPECIMENOrdering Facility: [facility] Address: [address] [place] [address] Performed By: #### 3 3959-8, 5195-3, 93175-2, 07892-3 ####[facility] [id number] [address] [place] eGFRcr SerPlBld CKD-EPI 2020 70 mL/min/1.73m??? Normal >=60 [facility] Comment on above: Order Comment: Speci men Type: BLOOD SPECIMENOrdering Facility: [facility] Address: [address] [place] [address] Result Comment: Mary Kay mated Glomerular Filtration [...] GFR. Performed By: #### 3 3959-8, 5195-3, 40822-2, 64660-9 ####[facility]ORATORYCLIA [id number] [place] [address] [place] Glucose [Mass/Vol] 129 mg/dL High 74-99 [facility] Comment on above: Order Comment: Jose Cruz johnson Type: BLOOD SPECIMENOrdering Facility: [facility] Address: [address] [place] [address] Result Comment: The [place] Diabetes Association (ADA) provides guidance for cutoff [...] Standards of Medical Care in Diabetes 2016, [place] Diabetes Association. Diabetes Care. 2016.39(Suppl 1). Performed By: #### 3 3959-8, 5195-3, 09042-3, 62224-7 ####[facility]ATORYCLIA [id number] [place] [address] [place] Potassium [Moles/Vol] 4.6 mmol/L Normal 3.7-5.1 [facility] Comment on above: Order Comment: Jose Cruz johnson Type: BLOOD SPECIMENOrdering Facility: [facility] Address: [address] [place] [address] Performed By: #### 3 3959-8, 5195-3, 32810-8, 95565-1 ####[facility]ORATORYCLIA [id number] [place] [address] [place] Protein [Mass/Vol] 6.5 g/dL Normal 6.3-8.0 [facility] Comment on above: Order Comment: Jose Cruz johnson Type: BLOOD SPECIMENOrdering Facility: [facility] Address: [address] [place] [address] Performed By: #### 3 3959-8, 5195-3, 73207-7, 97190-6 ####[facility]ORATORYCLIA [id number] [place] [id number] [place] Sodium [Moles/Vol] 138 mmol/L Normal 136-144 [facility] Comment on above: Order Comment: Speci men Type: BLOOD SPECIMENOrdering Facility: [facility] Address: [address] [place] [address] Performed By: #### 3 3959-8, 5195-3, 25915-3, 16572-9 ####[facility]ATORYCLIA [id number] [address] [place] Urea nitrogen [Mass/Vol] 15 mg/dL Normal 9-24 [facility] Comment on above: Order Comment: Speci men Type: BLOOD SPECIMENOrdering Facility: [facility] Address: [address] [place] [address] Performed By: #### 3 3959-8, 5195-3, 64148-8, 41134-4 ####[facility]ORATORYCLIA [id number] [address] [place] ECHO WITH AGITATED SALINE CO NTRASTon 04-06-2025 ECHO WITH AGITATED SALINE CONTRAST Normal [facility] HBV surface Ag Ser Qlon 03-20 HBV surface Ag Ql (S) Non-Reactive Normal Nonreactive [facility] Comment on above: Order Comment: Speci men Type: BLOOD SPECIMENOrdering Facility: [facility] Address: [address] [place] [address] Performed By: #### 3 3959-8, 5195-3, 43730-9, 77364-4 ####[facility]ORATORYCLIA [id number] [place] [address] [place] Legionella Ag Ur Qlon 2024 Legionella sp Ag Ql (U) Negative Normal Negative [facility] Comment on above: Order Comment: Speci men Type: URINE SPECIMENOrdering Facility: [facility] Address: [address] [place] [address] Result Comment: Pres umptive negative for L. [...] the test. Performed By: #### 3 2781-7 ####[facility] INDIANACLIA [id number] [address] NT-proBNP SerPl-mCncon 04-06 Natriuretic peptide.B prohormone N-Terminal [Mass/Vol] 1495 pg/mL High <125 [facility] Comment on above: Order Comment: Speci men Type: BLOOD SPECIMENOrdering Facility: [facility] Address: [address] [place] [address] Performed By: #### 3 3959-8, 5195-3, 07416-2, 65168-7 ####[facility] INDIANACLIA [id number] [address] Procalcitonin SerPl-mCncon 0 04-06-2025 Procalcitonin [Mass/Vol] 0.13 ng/mL High <0.09 [facility] Comment on above: Order Comment: Speci men Type: BLOOD SPECIMENOrdering Facility: [facility] Address: [address] [place] [address] Result Comment: For a guided interpretation of test results, please visit the Change in Procalcitonin Calculator, [email or web address]. Performed By: #### 3 3959-8, 5195-3, 85903-1, 57931-4 ####[facility]ORATORYCLIA [id number] [address] Procalcitonin [Mass/Vol] 0.13 ng/mL High <0.09 [facility] Comment on above: Order Comment: Speci men Type: BLOOD SPECIMENOrdering Facility: [facility] Address: [address] [place] [address] Result Comment: For a guided interpretation of test results, please visit the Change in Procalcitonin Calculator, [email or web address]. Performed By: #### 2 4321-2, 15122-4 ####[facility]ORATORYCLIA [id number] [address] [place] STAPHYLOCOCCUS AUREUS AND MR SA SCREEN, PCR, NASALon 04-06-2025 S. aureus and MRSA panel JUAN F+probe (Nose) Methicillin-SUSCEPTIBLE Staphylococcus aureus Detected Abnormal Not Detected [facility] Comment on above: Order Comment: Speci men Type: SWABOrdering Facility: [facility] Address: [address] [place] [address] Performed By: #### S APCR ####[facility] LABORATORYCLIA [id number] [address] [place] STREPTOCOCCUS PNEUMONIAE ANT IGEN URINEon 04-06-2025 STREPTOCOCCUS PNEUMONIAE ANTIGEN URINE Normal [facility] Comment on above: Performed By: #### S PNAG ####[facility]ORATORYCLIA [id number] [address] [place] Urinalysis complete panel (U )on 04-06-2025 Bilirubin Ql (U) Negative Normal Negative [facility] Comment on above: Order Comment: Speci men Type: URINE SPECIMENOrdering Facility: [facility] Address: [address] [place] [address] Performed By: #### 2 4356-8, 630-4 ####[facility]ORATORYCLIA [id number] [address] [place] Clarity (Unsp spec) Turbid Abnormal Clear [facility] Comment on above: Order Comment: Speci men Type: URINE SPECIMENOrdering Facility: [facility] Address: [address] [place] [address] Performed By: #### 2 4356-8, 630-4 ####[facility]ORATORYCLIA [id number] [address] STATES [facility] Color (U) Colorless Normal yellow [facility] Comment on above: Order Comment: Speci men Type: URINE SPECIMENOrdering Facility: [facility] Address: [address] [place] [address] Performed By: #### 2 4356-8, 630-4 ####[facility]ORATORYCLIA [id number] [address] Glucose Test strip (U) [Mass/Vol] Negative Normal Trace, Negative [facility] Comment on above: Order Comment: Speci men Type: URINE SPECIMENOrdering Facility: [facility] Address: [address] [place] [address] Performed By: #### 2 4356-8, 630-4 ####[facility] LABORATORYCLIA [id number] [address] STATES OF [facility] Hemoglobin Ql (U) 3+ Abnormal Negative, Trace [facility] Comment on above: Order Comment: Speci men Type: URINE SPECIMENOrdering Facility: [facility] Address: [address] [place] [address] Performed By: #### 2 4356-8, 630-4 ####[facility]ATORYCLIA [id number] [address] STATES [facility] Ketones Ql (U) Negative Normal Negative, Trace [facility] Comment on above: Order Comment: Speci men Type: URINE SPECIMENOrdering Facility: [facility] Address: [address] [place] [address] Performed By: #### 2 4356-8, 630-4 ####[facility] LABORATORYCLIA [id number] [address] Leukocyte esterase Test strip Ql (U) 25 Mayra/uL Normal Negative, 25 Mayra/uL [facility] Comment on above: Order Comment: Speci men Type: URINE SPECIMENOrdering Facility: [facility] Address: [address] [place] [address] Performed By: #### 2 4356-8, 630-4 ####[facility]ATORYCLIA [id number] [address] Nitrite Ql (U) Negative Normal Negative [facility] Comment on above: Order Comment: Speci men Type: URINE SPECIMENOrdering Facility: [facility] Address: [address] [place] [address] Performed By: #### 2 4356-8, 630-4 ####[facility]ORATORYCLIA [id number] [place] [address] [place] pH (U) 6.5 [pH] Normal 5.0-8.0 [facility] Comment on above: Order Comment: Speci men Type: URINE SPECIMENOrdering Facility: [facility] Address: [address] [place] [address] Performed By: #### 2 4356-8, 630-4 ####[facility]ATORYCLIA [id number] [place] [id number] [place] Protein (U) [Mass/Vol] Trace Normal Trace, Negative [facility] Comment on above: Order Comment: Speci men Type: URINE SPECIMENOrdering Facility: [facility] Address: [address] [place] [address] Performed By: #### 2 4356-8, 630-4 ####[facility] INDIANACLIA [id number] [address] STATES [facility] RBC LM.HPF (Urine sed) [#/Area] /[HPF] Abnormal 0-3 /HPF [facility] Comment on above: Order Comment: Speci men Type: URINE SPECIMENOrdering Facility: [facility] Address: [address] [place] [address] Performed By: #### 2 4356-8, 630-4 ####[facility]ORATORYCLIA [id number] [address] [place] Specific gravity (U) [Rel density] 1.026 Normal 1.005-1.030 [facility] Comment on above: Order Comment: Speci men Type: URINE SPECIMENOrdering Facility: [facility] Address: [address] [place] [address] Performed By: #### 2 4356-8, 630-4 ####[facility]ATORYCLIA [id number] [address] Urobilinogen Ql (U) Normal Normal Normal [facility] Comment on above: Order Comment: Speci men Type: URINE SPECIMENOrdering Facility: [facility] Address: [address] [place] [address] Performed By: #### 2 4356-8, 630-4 ####[facility]ATORYCLIA [id number] [address] [place] WBC LM.HPF (Urine sed) [#/Area] /[HPF] Abnormal 0-5 /HPF [facility] Comment on above: Order Comment: Speci men Type: URINE SPECIMENOrdering Facility: [facility] Address: [address] [place] [address] Performed By: #### 2 4356-8, 630-4 ####[facility]ORATORYCLIA [id number] [address] [place] XR CHEST 1V FRONTALon 2024 XR CHEST 1V FRONTAL Normal [facility] XR CHEST 1V FRONTAL Normal [facility] ALLIED HEALTHon 04-05-2025 ALLIED HEALTH Normal [facility] ANES POSTPROC EVALon 025 ANES POSTPROC EVAL Normal [facility] ANES PRE-OPon 04-05-2025 ANES PRE-OP Normal [facility] BRIEF OP NOTon 04-05-2025 BRIEF OP NOT Normal [facility] CNPNon 04-05-2025 CNPN Normal [facility] CONSULTon 04-05-2025 CONSULT Normal [facility] ECG COMPLETEon 04-05-2025 ECG COMPLETE Normal [facility] Gas and Carbon monoxide pane l (BldV)on 04-05-2025 BASE DEFICIT, VENOUS >-1 Normal -2-0 [facility] Comment on above: Order Comment: Speci men Type: VENOUS BLOOD SPECIMENOrdering Facility: [facility] Address: [address] [place] [address] Performed By: #### 2 4344-4 ####[facility]ORATORYCLIA [id number] [address] [place] Body temperature 100.58 [degF] Normal [facility] Comment on above: Order Comment: Speci men Type: VENOUS BLOOD SPECIMENOrdering Facility: [facility] Address: [address] [place] [address] Performed By: #### 2 4344-4 ####[facility]ORATORYCLIA [id number] [address] Calcium.ionized (BldV) [Mass/Vol] 1.11 mmol/L Normal 1.08-1.30 [facility] Comment on above: Order Comment: Speci men Type: VENOUS BLOOD SPECIMENOrdering Facility: [facility] Address: [address] [place] [address] Performed By: #### 2 4344-4 ####[facility]ORATORYCLIA [id number] [address] Calcium.ionized adjusted to pH 7.4 (BldA) [Moles/Vol] 1.11 mmol/L Normal 1.08-1.30 [facility] Comment on above: Order Comment: Speci men Type: VENOUS BLOOD SPECIMENOrdering Facility: [facility] Address: [address] [place] [address] Performed By: #### 2 4344-4 ####[facility]ORATORYCLIA [id number] [address] [place] Carboxyhemoglobin (BldV) [Mass fraction] 1.6 % Normal 0.0-2.0 [facility] Comment on above: Order Comment: Speci men Type: VENOUS BLOOD SPECIMENOrdering Facility: [facility] Address: [address] [place] [address] Result Comment: Carb oxyhemoglobin Reference Range for Smokers: 2.0-8.0% Performed By: #### 2 4344-4 ####[facility]ORATORYCLIA [id number] [address] [place] Chloride [Moles/Vol] 107 mmol/L High 97-105 [facility] Comment on above: Order Comment: Speci men Type: VENOUS BLOOD SPECIMENOrdering Facility: [facility] Address: [address] [place] [address] Performed By: #### 2 4344-4 ####[facility]ORATORYCLIA [id number] [address] CO2 (BldV) [Partial pressure] 39 mm[Hg] Low 42-55 [facility] Comment on above: Order Comment: Speci men Type: VENOUS BLOOD SPECIMENOrdering Facility: [facility] Address: [address] [place] [address] Performed By: #### 2 4344-4 ####[facility]ATORYCLIA [id number] [address] CO2 adjusted to patient's actual temperature (BldV) [Partial pressure] 42 mmHg Normal 42-55 [facility] Comment on above: Order Comment: Speci men Type: VENOUS BLOOD SPECIMENOrdering Facility: [facility] Address: [address] [place] [address] Performed By: #### 2 4344-4 ####[facility]ORATORYCLIA [id number] [address] [place] Glucose [Mass/Vol] 160 mg/dL High 60-105 [facility] Comment on above: Order Comment: Speci men Type: VENOUS BLOOD SPECIMENOrdering Facility: [facility] Address: [address] [place] [address] Performed By: #### 2 4344-4 ####[facility]ORATORYCLIA [id number] [address] [place] HCO3 (Bld) [Moles/Vol] 24 mmol/L Normal 24-28 [facility] Comment on above: Order Comment: Speci men Type: VENOUS BLOOD SPECIMENOrdering Facility: [facility] Address: [address] [place] [address] Performed By: #### 2 4344-4 ####[facility]ORATORYCLIA [id number] [address] [place] Hematocrit (Bld) [Volume fraction] 31.2 % Low 39.0-51.0 [facility] Comment on above: Order Comment: Speci men Type: VENOUS BLOOD SPECIMENOrdering Facility: [facility] Address: [address] [place] [address] Performed By: #### 2 4344-4 ####[facility]ORATORYCLIA [id number] [address] [place] Hemoglobin (Bld) [Mass/Vol] 10.1 g/dL Low 13.0-17.0 [facility] Comment on above: Order Comment: Speci men Type: VENOUS BLOOD SPECIMENOrdering Facility: [facility] Address: [address] [place] [address] Performed By: #### 2 4344-4 ####[facility]ORATORYCLIA [id number] [address] [place] Lactate [Moles/Vol] 1.5 mmol/L Normal 0.5-2.2 [facility] Comment on above: Order Comment: Speci men Type: VENOUS BLOOD SPECIMENOrdering Facility: [facility] Address: [address] [place] [address] Performed By: #### 2 4344-4 ####[facility]ORATORYCLIA [id number] [address] [place] Methemoglobin (Bld) [Mass fraction] 1.0 % Normal 0.0-1.5 [facility] Comment on above: Order Comment: Speci men Type: VENOUS BLOOD SPECIMENOrdering Facility: [facility] Address: [address] [place] [address] Performed By: #### 2 4344-4 ####[facility] LABORATORYCLIA [id number] [address] [place] O2 THERAPY NC = Nasal Cannula Normal [facility] Comment on above: Order Comment: Speci men Type: VENOUS BLOOD SPECIMENOrdering Facility: [facility] Address: [address] [place] [address] Result Comment: 6L Performed By: #### 2 4344-4 ####[facility]ORATORYCLIA [id number] [address] [place] Oxygen (BldV) [Partial pressure] 178 mm[Hg] High 35-45 [facility] Comment on above: Order Comment: Speci men Type: VENOUS BLOOD SPECIMENOrdering Facility: [facility] Address: [address] [place] [address] Performed By: #### 2 4344-4 ####[facility] LABORATORYCLIA [id number] [address] [place] Oxygen adjusted to patient's actual temperature (BldV) [Partial pressure] 184 mmHg High 35-45 [facility] Comment on above: Order Comment: Speci men Type: VENOUS BLOOD SPECIMENOrdering Facility: [facility] Address: [address] [place] [address] Performed By: #### 2 4344-4 ####[facility]ORATORYCLIA [id number] [address] Oxygen saturation in Venous blood 99 % High 60-85 [facility] Comment on above: Order Comment: Speci men Type: VENOUS BLOOD SPECIMENOrdering Facility: [facility] Address: [address] [place] [address] Performed By: #### 2 4344-4 ####[facility] LABORATORYCLIA [id number] [address] [place] Oxyhemoglobin (BldV) [Mass fraction] 96 % High 60-85 [facility] Comment on above: Order Comment: Speci men Type: VENOUS BLOOD SPECIMENOrdering Facility: [facility] Address: [address] [place] [address] Performed By: #### 2 4344-4 ####[facility] LABORATORYCLIA [id number] [address] [place] pH (BldV) 7.40 [pH] Normal 7.32-7.42 [facility] Comment on above: Order Comment: Speci men Type: VENOUS BLOOD SPECIMENOrdering Facility: [facility] Address: [address] [place] [address] Performed By: #### 2 4344-4 ####[facility] LABORATORYCLIA [id number] [address] [place] pH adjusted to patient's actual temperature (BldV) 7.38 Normal 7.32-7.42 [facility] Comment on above: Order Comment: Speci men Type: VENOUS BLOOD SPECIMENOrdering Facility: [facility] Address: [address] [place] [address] Performed By: #### 2 4344-4 ####[facility] LABORATORYCLIA [id number] [address] [place] [facility] Potassium [Moles/Vol] 4.4 mmol/L Normal 3.5-5.0 [facility] Comment on above: Order Comment: Speci men Type: VENOUS BLOOD SPECIMENOrdering Facility: [facility] Address: [address] [place] [address] Performed By: #### 2 4344-4 ####[facility] LABORATORYCLIA [id number] [address] [place] [Moles/Vol] 138 mmol/L Normal 136-144 [facility] Comment on above: Order Comment: Speci men Type: VENOUS BLOOD SPECIMENOrdering Facility: [facility] Address: [address] [place] [address] Performed By: #### 2 4344-4 ####[facility] LABORATORYCLIA [id number] [address] [facility] HISTORY PHYSICALon HISTORY PHYSICAL Normal [facility] HISTORY PHYSICAL Normal [facility] NURSING PROGon 04-05-2025 NURSING PROG Normal [facility] NURSING PROG Normal [facility] OPERATIVE NOon 04-05-2025 OPERATIVE NO Normal [facility] XR CHEST 1V FRONTALon 2024 XR CHEST 1V FRONTAL Normal [facility] CNPNon 04-04-2025 CNPN Normal [facility] CNPNon 04-02-2025 CNPN Normal [facility] NURSING PROGon 03-30-2025 NURSING PROG Normal [facility] CBC panel Auto (Bld)on 03-29 Erythrocyte distribution width (RBC) [Ratio] 14.0 % Normal 11.5-15.0 [facility] Comment on above: Order Comment: Speci men Type: BLOOD SPECIMENOrdering Facility: [facility] Address: [address] [place] [address] Performed By: #### 5 8410-2 ####[facility] LABORATORYCLIA [id number] [address] Hematocrit (Bld) [Volume fraction] 35.9 % Low 39.0-51.0 [facility] Comment on above: Order Comment: Speci men Type: BLOOD SPECIMENOrdering Facility: [facility] Address: [address] [place] [address] Performed By: #### 5 8410-2 ####[facility] LABORATORYCLIA [id number] [address] STATES [facility] Hemoglobin (Bld) [Mass/Vol] 11.9 g/dL Low 13.0-17.0 [facility] Comment on above: Order Comment: Speci men Type: BLOOD SPECIMENOrdering Facility: [facility] Address: [address] [place] [address] Performed By: #### 5 8410-2 ####[facility] LABORATORYCLIA [id number] [address] [place] [facility] MCH (RBC) [Entitic mass] 28.7 pg Normal 26.0-34.0 [facility] Comment on above: Order Comment: Speci men Type: BLOOD SPECIMENOrdering Facility: [facility] Address: [address] [place] [address] Performed By: #### 5 8410-2 ####[facility] LABORATORYCLIA [id number] [address] [place] MCHC (RBC) [Mass/Vol] 33.1 g/dL Normal 30.5-36.0 [facility] Comment on above: Order Comment: Speci men Type: BLOOD SPECIMENOrdering Facility: [facility] Address: [address] [place] [address] Performed By: #### 5 8410-2 ####[facility] LABORATORYCLIA [id number] [address] MCV (RBC) [Entitic vol] 86.5 fL Normal 80.0-100.0 [facility] Comment on above: Order Comment: Speci men Type: BLOOD SPECIMENOrdering Facility: [facility] Address: [address] [place] [address] Performed By: #### 5 8410-2 ####[facility] LABORATORYCLIA [id number] [address] [place] Nucleated RBC (Bld) [#/Vol] 10*3/uL Normal <0.01 [facility] Comment on above: Order Comment: Speci men Type: BLOOD SPECIMENOrdering Facility: [facility] Address: [address] [place] [address] Performed By: #### 5 8410-2 ####[facility] LABORATORYCLIA [id number] [address] [place] Platelet mean volume (Bld) [Entitic vol] 10.5 fL Normal 9.0-12.7 [facility] Comment on above: Order Comment: Speci men Type: BLOOD SPECIMENOrdering Facility: [facility] Address: [address] [place] [address] Performed By: #### 5 8410-2 ####[facility] LABORATORYCLIA [id number] [address] [place] Platelets (Bld) [#/Vol] 333 10*3/uL Normal 150-400 [facility] Comment on above: Order Comment: Speci men Type: BLOOD SPECIMENOrdering Facility: [facility] Address: [address] [place] [address] Performed By: #### 5 8410-2 ####[facility] LABORATORYCLIA [id number] [place] [address] [place] RBC (Bld) [#/Vol] 4.15 10*6/uL Low 4.20-6.00 [facility] Comment on above: Order Comment: Speci men Type: BLOOD SPECIMENOrdering Facility: [facility] Address: [address] [place] [address] Performed By: #### 5 8410-2 ####[facility]ORATORYCLIA [id number] [address] [place] WBC (Bld) [#/Vol] 7.99 10*3/uL Normal 3.70-11.00 [facility] Comment on above: Order Comment: Speci men Type: BLOOD SPECIMENOrdering Facility: [facility] Address: [address] [place] [address] Performed By: #### 5 8410-2 ####[facility] LABORATORYCLIA [id number] [address] Comprehensive metabolic 2000 panelon 03-29-2025 Albumin [Mass/Vol] 4.1 g/dL Normal 3.9-4.9 [facility] Comment on above: Order Comment: Speci men Type: BLOOD SPECIMENOrdering Facility: [facility] Address: [address] [place] [address] Performed By: #### 2 4323-8, 23393-5 ####[facility]ORATORYCLIA [id number] [address] [place] ALP [Catalytic activity/Vol] 72 U/L Normal 38-113 [facility] Comment on above: Order Comment: Speci men Type: BLOOD SPECIMENOrdering Facility: [facility] Address: [address] [place] [address] Performed By: #### 2 4323-8, 53960-1 ####[facility]ORATORYCLIA [id number] [address] [place] ALT With P-5'-P [Catalytic activity/Vol] 11 U/L Normal 10-54 [facility] Comment on above: Order Comment: Speci men Type: BLOOD SPECIMENOrdering Facility: [facility] Address: [address] [place] [address] Performed By: #### 2 4323-8, 65819-0 ####[facility]ORATORYCLIA [id number] [address] [place] Anion gap [Moles/Vol] 14 mmol/L Normal 8-15 [facility] Comment on above: Order Comment: Speci men Type: BLOOD SPECIMENOrdering Facility: [facility] Address: [address] [place] [address] Performed By: #### 2 4323-8, 47212-7 ####[facility] LABORATORYCLIA [id number] [place] [address] [place] AST With P-5'-P [Catalytic activity/Vol] 16 U/L Normal 14-40 [facility] Comment on above: Order Comment: Speci men Type: BLOOD SPECIMENOrdering Facility: [facility] Address: [address] [place] [address] Performed By: #### 2 4323-8, 98186-9 ####[facility]ORATORYCLIA [id number] [place] [address] [place] Bilirubin [Mass/Vol] 0.3 mg/dL Normal 0.2-1.3 [facility] Comment on above: Order Comment: Speci men Type: BLOOD SPECIMENOrdering Facility: [facility] Address: [address] [place] [address] Performed By: #### 2 4323-8, 71662-9 ####[facility]ORATORYCLIA [id number] [place] [address] [place] Calcium [Mass/Vol] 9.8 mg/dL Normal 8.5-10.2 [facility] Comment on above: Order Comment: Speci men Type: BLOOD SPECIMENOrdering Facility: [facility] Address: [address] [place] [address] Performed By: #### 2 4323-8, 92660-3 ####[facility]ORATORYCLIA [id number] [place] [address] [place] Chloride [Moles/Vol] 99 mmol/L Normal 98-107 [facility] Comment on above: Order Comment: Speci men Type: BLOOD SPECIMENOrdering Facility: [facility] Address: [address] [place] [address] Performed By: #### 2 4323-8, 36514-2 ####[facility] LABORATORYCLIA [id number] [address] STATES [place] [facility] CO2 [Moles/Vol] 24 mmol/L Normal 22-30 [facility] Comment on above: Order Comment: Speci men Type: BLOOD SPECIMENOrdering Facility: [facility] Address: [address] [place] [address] Performed By: #### 2 4323-8, 00157-5 ####[facility]ORATORYCLIA [id number] [address] [place] Creatinine [Mass/Vol] 1.19 mg/dL Normal 0.73-1.22 [facility] Comment on above: Order Comment: Speci men Type: BLOOD SPECIMENOrdering Facility: [facility] Address: [address] [place] [address] Performed By: #### 2 4323-8, 46766-8 ####[facility]ORATORYCLIA [id number] [address] Creatinine and Glomerular filtration rate.predicted panel (S/P/Bld) 64 mL/min/1.73m??? Normal >=60 [facility] Comment on above: Order Comment: Speci men Type: BLOOD SPECIMENOrdering Facility: [facility] Address: [address] [place] [address] Result Comment: Mary Kay mated Glomerular Filtration [...] actual GFR. Performed By: #### 2 4323-8, 80457-9 ####[facility]ORATORYCLIA [id number] [address] [place] Glucose [Mass/Vol] 211 mg/dL High 74-99 [facility] Comment on above: Order Comment: Speci men Type: BLOOD SPECIMENOrdering Facility: [facility] Address: [address] [place] [address] Result Comment: The [place] Diabetes Association (ADA) provides guidance for cutoff [...] Standards of Medical Care in Diabetes 2016, [place] Diabetes Association. Diabetes Care. 2016.39(Suppl 1). Performed By: #### 2 4323-8, 33123-8 ####[facility]ORATORYCLIA [id number] [place] [address] [place] Potassium [Moles/Vol] 4.8 mmol/L Normal 3.7-5.1 [facility] Comment on above: Order Comment: Jose Cruz johnson Type: BLOOD SPECIMENOrdering Facility: [facility] Address: [address] [place] [address] Performed By: #### 2 4323-8, 77150-8 ####[facility] LABORATORYCLIA [id number] [place] [address] [place] Protein [Mass/Vol] 7.5 g/dL Normal 6.3-8.0 [facility] Comment on above: Order Comment: Jose Cruz johnson Type: BLOOD SPECIMENOrdering Facility: [facility] Address: [address] [place] [address] Performed By: #### 2 4323-8, 06539-2 ####[facility]ORATORYCLIA [id number] [place] [address] [place] Sodium [Moles/Vol] 137 mmol/L Normal 136-144 [facility] Comment on above: Order Comment: Jose Cruz johnson Type: BLOOD SPECIMENOrdering Facility: [facility] Address: [address] [place] [address] Performed By: #### 2 4323-8, 42520-8 ####[facility]ORATORYCLIA [id number] [place] [address] [place] Urea nitrogen [Mass/Vol] 25 mg/dL High 9-24 [facility] Comment on above: Order Comment: Jose Cruz johnson Type: BLOOD SPECIMENOrdering Facility: [facility] Address: [address] [place] [address] Performed By: #### 2 4323-8, 92035-4 ####[facility] LABORATORYCLIA [id number] [place] [id number] [place] HISTORY PHYSICALon 5 HISTORY PHYSICAL Normal [facility] HbA1c (Bld)on 03-29-2025 Average glucose Estimated from glycated hemoglobin (Bld) [Mass/Vol] 166 mg/dL Normal [facility] Comment on above: Order Comment: Jose Cruz johnson Type: BLOOD SPECIMENOrdering Facility: [facility] Address: [address] [place] [address] Result Comment: eAG: (Estimated average glucose) is a calculated value from HgbA1c and is practice representative of the average blood glucose level in the last 2-3 month period. Performed By: #### 5 5454-3 ####[facility] LABCLIA [id number] [place] [address] [place] HbA1c (Bld) [Mass fraction] 7.4 % High 4.3-5.6 [facility] Comment on above: Order Comment: Jose Cruz johnson Type: BLOOD SPECIMENOrdering Facility: [facility] Address: [address] [place] [address] Result Comment: Amer [place] Diabetes Association guidelines indicate that patients with HgbA1c in the range 5.7-6.4% are at increased risk for development of diabetes, and intervention by lifestyle modification may be beneficial. HgbA1c greater or equal to 6.5% is considered diagnostic of diabetes. Performed By: #### 5 5454-3 ####[facility] LABCLIA [id number] [address] [address] [place] Lipid 1996 panelon 5 Cholesterol [Mass/Vol] 113 mg/dL Normal <200 [facility] Comment on above: Order Comment: Dahianai men Type: BLOOD SPECIMENOrdering Facility: [facility] Address: [address] [place] [address] Result Comment: <200 mg/dL, Desirable 200-239 mg/dL, Borderline high>239 mg/dL, High Performed By: #### 2 4323-8, 14906-5 ####[facility]ORATORYCLIA [id number] [place] [address] [facility] [place] Cholesterol in HDL [Mass/Vol] 38 mg/dL Low >39 [facility] Comment on above: Order Comment: Speci men Type: BLOOD SPECIMENOrdering Facility: [facility] Address: [address] [place] [address] Result Comment: 40-5 9 mg/dL, Acceptable>59 mg/dL, High: Negative risk factor for coronary heart disease<40 mg/dL, Low: Positive risk factor for coronary heart disease Performed By: #### 2 4323-8, 18509-5 ####[facility]ORATORYCLIA [id number] [address] [facility] Cholesterol in LDL [Mass/Vol] 38 mg/dL Normal <100 [facility] Comment on above: Order Comment: Jose Cruz alex Type: BLOOD SPECIMENOrdering Facility: [facility] Address: [address] [place] [address] Result Comment: <100 mg/dL, Optimal 100-129 mg/dL, Near optimal/above optimal 130-159 mg/dL, Borderline high 160-189 mg/dL, High>189 mg/dL, Very highSecondary prevention optimal LDL Cholesterol levels are recommended to be <70 mg/dLLDL cholesterol is calculated using the Hackett-NIH equation. Performed By: #### 2 4323-8, 02535-1 ####[facility]ORATORYCLIA [id number] [address] [place] Cholesterol in LDL/Cholesterol in HDL [Mass ratio] 1.00 {ratio} Normal <2.54 [facility] Comment on above: Order Comment: Speci men Type: BLOOD SPECIMENOrdering Facility: [facility] Address: [address] [place] [address] Result Comment: Chandni clark:1. National Cholesterol Education Program ATP III Guideline At-A-Glance Quick Desk Reference: National Heart, Lung, and Blood Bolton. National Institutes of Health. 2001: NIH Publication No. 01-3305.2. An International Atherosclerosis Society position paper: global recommendations for the management of dyslipidemia: executive summary, Atherosclerosis. 2014: 232(2):410-413. Performed By: #### 2 4323-8, 66829-1 ####[facility] LABORATORYCLIA [id number] [address] [place] Cholesterol in VLDL [Mass/Vol] 32 mg/dL High <30 [facility] Comment on above: Order Comment: Speci men Type: BLOOD SPECIMENOrdering Facility: [facility] Address: [address] [place] [address] Performed By: #### 2 4323-8, 78592-7 ####[facility]ORATORYCLIA [id number] [address] [place] Cholesterol non HDL [Mass/Vol] 75 mg/dL Normal <130 [facility] Comment on above: Order Comment: Speci men Type: BLOOD SPECIMENOrdering Facility: [facility] Address: [address] [place] [address] Result Comment: <130 mg/dL, Optimal 130-159 mg/dL, Near optimal/above optimal 160-189 mg/dL, Borderline high 190-219 mg/dL, High>219 mg/dL, Very highSecondary prevention optimal non HDL Cholesterol levels are recommended to be <100 mg/dL Performed By: #### 2 4323-8, 18055-1 ####[facility]ORATORYCLIA [id number] [address] [place] Cholesterol.total/C holesterol in HDL [Mass ratio] 2.97 {ratio} Normal <5.10 [facility] Comment on above: Order Comment: Speci men Type: BLOOD SPECIMENOrdering Facility: [facility] Address: [address] [place] [address] Performed By: #### 2 4323-8, 42037-5 ####[facility]ORATORYCLIA [id number] [place] [address] [place] FASTING TIME 12 hrs Normal [facility] Comment on above: Order Comment: Speci men Type: BLOOD SPECIMENOrdering Facility: [facility] Address: [address] [place] [address] Performed By: #### 2 4323-8, 54623-2 ####[facility]ORATORYCLIA [id number] [address] [place] Triglyceride [Mass/Vol] 239 mg/dL High <150 [facility] Comment on above: Order Comment: Speci men Type: BLOOD SPECIMENOrdering Facility: [facility] Address: [address] [place] [address] Result Comment: <150 mg/dL, Normal 150-199 mg/dL, Borderline high 200-499 mg/dL, High>499 mg/dL, Very high Performed By: #### 2 4323-8, 29569-0 ####[facility]ORATORYCLIA [id number] [place] [address] [place] CNPNon 03-21-2025 CNPN Normal [facility] CNCOon 03-20-2025 CNCO Letter Text Normal [facility] CNOVon 03-20-2025 CNOV Normal [facility] CNPNon 03-19-2025 CNPN Normal [facility] CNPNon 03-15-2025 CNPN Normal [facility] CNOVon 03-05-2025 CNOV Normal [facility] HEMOGLOBIN A1C (POC)on 03-05 HbA1c (Bld) [Mass fraction] 7.8 % Abnormal 4.3 - 5.6 % [facility] Comment on above: Location:[facility] Office, [address] [place] [address], [facility] Point of care (POC) Hemoglobin A1c (HGBA1C) [...] specific diabetes management situations: The POC device maintainability engineer provides a normal range of 4.2% to 6.5% for the HGBA1C POC test. However, the [place] Diabetes Association guidelines indicate that patients with [...] Interpretation and review of laboratory results Abnormal [facility] CNOVon 02-28-2025 CNOV Normal [facility] Basic metabolic 2000 panelon 02-26-2025 Anion gap [Moles/Vol] 11 mmol/L Normal 8-15 [facility] Comment on above: Order Comment: Speci men Type: BLOOD SPECIMENOrdering Facility: [facility] Address: [address] [place] [address] Performed By: #### 2 4321-2 ####[facility]ORATORYCLIA [id number] [place] [address] [place] Calcium [Mass/Vol] 8.2 mg/dL Low 8.5-10.2 [facility] Comment on above: Order Comment: Speci men Type: BLOOD SPECIMENOrdering Facility: [facility] Address: [address] [place] [address] Performed By: #### 2 4321-2 ####[facility] LABORATORYCLIA [id number] [place] [address] [place] Chloride [Moles/Vol] 101 mmol/L Normal 98-107 [facility] Comment on above: Order Comment: Speci men Type: BLOOD SPECIMENOrdering Facility: [facility] Address: [address] [place] [address] Performed By: #### 2 4321-2 ####[facility] LABORATORYCLIA [id number] [address] CO2 [Moles/Vol] 26 mmol/L Normal 22-30 [facility] Comment on above: Order Comment: Jose Cruz johnson Type: BLOOD SPECIMENOrdering Facility: [facility] Address: [address] [place] [address] Performed By: #### 2 4321-2 ####[facility] LABORATORYCLIA [id number] [place] [id number] [place] Creatinine [Mass/Vol] 1.26 mg/dL High 0.73-1.22 [facility] Comment on above: Order Comment: Speci men Type: BLOOD SPECIMENOrdering Facility: [facility] Address: [address] [place] [address] Performed By: #### 2 4321-2 ####[facility] LABORATORYCLIA [id number] [address] Creatinine and Glomerular filtration rate.predicted panel (S/P/Bld) 60 mL/min/1.73m??? Normal >=60 [facility] Comment on above: Order Comment: Speci men Type: BLOOD SPECIMENOrdering Facility: [facility] Address: [address] [place] [address] Result Comment: Mary Kay mated Glomerular Filtration [...] actual GFR. Performed By: #### 2 4321-2 ####[facility]ORATORYCLIA [id number] [address] [place] Glucose [Mass/Vol] 100 mg/dL High 74-99 [facility] Comment on above: Order Comment: Jose Cruz johnson Type: BLOOD SPECIMENOrdering Facility: [facility] Address: [address] [place] [address] Result Comment: The [place] Diabetes Association (ADA) provides guidance for cutoff [...] Standards of Medical Care in Diabetes 2016, [place] Diabetes Association. Diabetes Care. 2016.39(Suppl 1). Performed By: #### 2 4321-2 ####[facility]ORATORYCLIA [id number] [place] [address] [place] Potassium [Moles/Vol] 4.3 mmol/L Normal 3.7-5.1 [facility] Comment on above: Order Comment: Speci men Type: BLOOD SPECIMENOrdering Facility: [facility] Address: [address] [place] [address] Performed By: #### 2 4321-2 ####[facility]ORATORYCLIA [id number] [place] [address] [place] Sodium [Moles/Vol] 138 mmol/L Normal 136-144 [facility] Comment on above: Order Comment: Speci men Type: BLOOD SPECIMENOrdering Facility: [facility] Address: [address] [place] [address] Performed By: #### 2 4321-2 ####[facility]ORATORYCLIA [id number] [place] [address] [place] Urea nitrogen [Mass/Vol] 16 mg/dL Normal 9-24 [facility] Comment on above: Order Comment: Speci men Type: BLOOD SPECIMENOrdering Facility: [facility] Address: [address] [place] [address] Performed By: #### 2 4321-2 ####[facility]ORATORYCLIA [id number] [place] [address] [place] CASE MGT INIT ASSESon 2024 CASE MGT INIT ASSES Normal [facility] CBC panel Auto (Bld)on 02-26 Erythrocyte distribution width (RBC) [Ratio] 13.3 % Normal 11.5-15.0 [facility] Comment on above: Order Comment: Speci men Type: BLOOD SPECIMENOrdering Facility: [facility] Address: [address] [place] [address] Performed By: #### 5 8410-2 ####[facility] LABORATORYCLIA [id number] [address] STATES OF [facility] Hematocrit (Bld) [Volume fraction] 28.8 % Low 39.0-51.0 [facility] Comment on above: Order Comment: Speci men Type: BLOOD SPECIMENOrdering Facility: [facility] Address: [address] [place] [address] Performed By: #### 5 8410-2 ####[facility]ORATORYCLIA [id number] [address] [place] [facility] Hemoglobin (Bld) [Mass/Vol] 8.9 g/dL Low 13.0-17.0 [facility] Comment on above: Order Comment: Speci men Type: BLOOD SPECIMENOrdering Facility: [facility] Address: [address] [place] [address] Performed By: #### 5 8410-2 ####[facility]ORATORYCLIA [id number] [address] [place] MCH (RBC) [Entitic mass] 26.7 pg Normal 26.0-34.0 [facility] Comment on above: Order Comment: Speci men Type: BLOOD SPECIMENOrdering Facility: [facility] Address: [address] [place] [address] Performed By: #### 5 8410-2 ####[facility]ORATORYCLIA [id number] [address] [place] MCHC (RBC) [Mass/Vol] 30.9 g/dL Normal 30.5-36.0 [facility] Comment on above: Order Comment: Speci men Type: BLOOD SPECIMENOrdering Facility: [facility] Address: [address] [place] [address] Performed By: #### 5 8410-2 ####[facility]ORATORYCLIA [id number] [address] MCV (RBC) [Entitic vol] 86.5 fL Normal 80.0-100.0 [facility] Comment on above: Order Comment: Speci men Type: BLOOD SPECIMENOrdering Facility: [facility] Address: [address] [place] [address] Performed By: #### 5 8410-2 ####[facility]ORATORYCLIA [id number] [address] [place] Nucleated RBC (Bld) [#/Vol] 10*3/uL Normal <0.01 [facility] Comment on above: Order Comment: Speci men Type: BLOOD SPECIMENOrdering Facility: [facility] Address: [address] [place] [address] Performed By: #### 5 8410-2 ####[facility] [facility]ATORYCLIA [id number] [address] STATES [facility] Platelet mean volume (Bld) [Entitic vol] 10.1 fL Normal 9.0-12.7 [facility] Comment on above: Order Comment: Speci men Type: BLOOD SPECIMENOrdering Facility: [facility] Address: [address] [place] [address] Performed By: #### 5 8410-2 ####[facility]ORATORYCLIA [id number] [address] STATES [facility] Platelets (Bld) [#/Vol] 215 10*3/uL Normal 150-400 [facility] Comment on above: Order Comment: Speci men Type: BLOOD SPECIMENOrdering Facility: [facility] Address: [address] [place] [address] Performed By: #### 5 8410-2 ####[facility]ORATORYCLIA [id number] [address] [place] RBC (Bld) [#/Vol] 3.33 10*6/uL Low 4.20-6.00 [facility] Comment on above: Order Comment: Speci men Type: BLOOD SPECIMENOrdering Facility: [facility] Address: [address] [place] [address] Performed By: #### 5 8410-2 ####[facility]ORATORYCLIA [id number] [place] [address] [place] WBC (Bld) [#/Vol] 7.76 10*3/uL Normal 3.70-11.00 [facility] Comment on above: Order Comment: Speci men Type: BLOOD SPECIMENOrdering Facility: [facility] Address: [address] [place] [address] Performed By: #### 5 8410-2 ####[facility]ORATORYCLIA [id number] [place] [address] [place] CNDSon 02-26-2025 CNDS Normal [facility] Basic metabolic 2000 panelon 02-25-2025 Anion gap [Moles/Vol] 7 mmol/L Low 8-15 [facility] Comment on above: Order Comment: Speci men Type: BLOOD SPECIMENOrdering Facility: [facility] Address: [address] [place] [address] Performed By: #### 2 4321-2 ####[facility]ORATORYCLIA [id number] [place] [address] [place] Calcium [Mass/Vol] 8.1 mg/dL Low 8.5-10.2 [facility] Comment on above: Order Comment: Speci men Type: BLOOD SPECIMENOrdering Facility: [facility] Address: [address] [place] [address] Performed By: #### 2 4321-2 ####[facility]ORATORYCLIA [id number] [place] [address] [place] Chloride [Moles/Vol] 103 mmol/L Normal 98-107 [facility] Comment on above: Order Comment: Speci men Type: BLOOD SPECIMENOrdering Facility: [facility] Address: [address] [place] [address] Performed By: #### 2 4321-2 ####[facility]ORATORYCLIA [id number] [address] [place] CO2 [Moles/Vol] 28 mmol/L Normal 22-30 [facility] Comment on above: Order Comment: Speci men Type: BLOOD SPECIMENOrdering Facility: [facility] Address: [address] [place] [address] Performed By: #### 2 4321-2 ####[facility]ORATORYCLIA [id number] [address] [place] [facility] Creatinine [Mass/Vol] 1.26 mg/dL High 0.73-1.22 [facility] Comment on above: Order Comment: Speci men Type: BLOOD SPECIMENOrdering Facility: [facility] Address: [address] [place] [address] Performed By: #### 2 4321-2 ####[facility]IANACL[facility] [id number] [address] Creatinine and Glomerular filtration rate.predicted panel (S/P/Bld) 60 mL/min/1.73m??? Normal >=60 [facility] Comment on above: Order Comment: Speci men Type: BLOOD SPECIMENOrdering Facility: [facility] Address: [address] [place] [address] Result Comment: Mary Kay mated Glomerular Filtration [...] actual GFR. Performed By: #### 2 4321-2 ####[facility]ATORYCLIA [id number] [address] [place] [facility] Glucose [Mass/Vol] 123 mg/dL High 74-99 [facility] Comment on above: Order Comment: Speci men Type: BLOOD SPECIMENOrdering Facility: [facility] Address: [address] [place] [address] Result Comment: [place] Diabetes Association (ADA) provides guidance for cutoff [...] Standards of Medical Care in Diabetes 2016, [place] Diabetes Association. Diabetes Care. 2016.39(Suppl 1). Performed By: #### 2 4321-2 ####[facility]ATORYCLIA [id number] [place] [address] [place] Potassium [Moles/Vol] 4.3 mmol/L Normal 3.7-5.1 [facility] Comment on above: Order Comment: Jose Cruz johnson Type: BLOOD SPECIMENOrdering Facility: [facility] Address: [address] [place] [address] Performed By: #### 2 4321-2 ####[facility]ATORYCLIA [id number] [address] [place] Sodium [Moles/Vol] 138 mmol/L Normal 136-144 [facility] Comment on above: Order Comment: Jose Cruz johnson Type: BLOOD SPECIMENOrdering Facility: [facility] Address: [address] [place] [address] Performed By: #### 2 4321-2 ####[facility]ATORYCLIA [id number] [place] [address] [place] Urea nitrogen [Mass/Vol] 17 mg/dL Normal 9-24 [facility] Comment on above: Order Comment: Jose Cruz johnson Type: BLOOD SPECIMENOrdering Facility: [facility] Address: [address] [place] [address] Performed By: #### 2 4321-2 ####[facility]ATORYCLIA [id number] [address] [place] CBC panel Auto (Bld)on 02-25 Erythrocyte distribution width (RBC) [Ratio] 13.3 % Normal 11.5-15.0 [facility] Comment on above: Order Comment: Speci men Type: BLOOD SPECIMENOrdering Facility: [facility] Address: [address] [place] [address] Performed By: #### 5 8410-2 ####[facility]ATORYCLIA [id number] [address] OF [facility] Hematocrit (Bld) [Volume fraction] 28.3 % Low 39.0-51.0 [facility] Comment on above: Order Comment: Speci men Type: BLOOD SPECIMENOrdering Facility: [facility] Address: [address] [place] [address] Performed By: #### 5 8410-2 ####[facility]ATORYCLIA [id number] [address] [place] [facility] Hemoglobin (Bld) [Mass/Vol] 8.9 g/dL Low 13.0-17.0 [facility] Comment on above: Order Comment: Speci men Type: BLOOD SPECIMENOrdering Facility: [facility] Address: [address] [place] [address] Performed By: #### 5 8410-2 ####[facility]ATORYCLIA [id number] [address] [place] MCH (RBC) [Entitic mass] 26.6 pg Normal 26.0-34.0 [facility] Comment on above: Order Comment: Speci men Type: BLOOD SPECIMENOrdering Facility: [facility] Address: [address] [place] [address] Performed By: #### 5 8410-2 ####[facility]ATORYCLIA [id number] [address] [place] MCHC (RBC) [Mass/Vol] 31.4 g/dL Normal 30.5-36.0 [facility] Comment on above: Order Comment: Speci men Type: BLOOD SPECIMENOrdering Facility: [facility] Address: [address] [place] [address] Performed By: #### 5 8410-2 ####[facility]ATORYCLIA [id number] [address] STATES [facility] MCV (RBC) [Entitic vol] 84.7 fL Normal 80.0-100.0 [facility] Comment on above: Order Comment: Speci men Type: BLOOD SPECIMENOrdering Facility: [facility] Address: [address] [place] [address] Performed By: #### 5 8410-2 ####[facility]ATORYCLIA [id number] [address] [place] Nucleated RBC (Bld) [#/Vol] 10*3/uL Normal <0.01 [facility] Comment on above: Order Comment: Speci men Type: BLOOD SPECIMENOrdering Facility: [facility] Address: [address] [place] [address] Performed By: #### 5 8410-2 ####[facility]ATORYCLIA [id number] [address] [place] Platelet mean volume (Bld) [Entitic vol] 10.1 fL Normal 9.0-12.7 [facility] Comment on above: Order Comment: Speci men Type: BLOOD SPECIMENOrdering Facility: [facility] Address: [address] [place] [address] Performed By: #### 5 8410-2 ####[facility]ATORYCLIA [id number] [address] [place] Platelets (Bld) [#/Vol] 216 10*3/uL Normal 150-400 [facility] Comment on above: Order Comment: Speci men Type: BLOOD SPECIMENOrdering Facility: [facility] Address: [address] [place] [address] Performed By: #### 5 8410-2 ####[facility]ATORYCLIA [id number] [address] [place] RBC (Bld) [#/Vol] 3.34 10*6/uL Low 4.20-6.00 [facility] Comment on above: Order Comment: Speci men Type: BLOOD SPECIMENOrdering Facility: [facility] Address: [address] [place] [address] Performed By: #### 5 8410-2 ####[facility]ATORYCLIA [id number] [address] [place] [facility] WBC (Bld) [#/Vol] 10.51 10*3/uL Normal 3.70-11.00 [facility] Comment on above: Order Comment: Speci men Type: BLOOD SPECIMENOrdering Facility: [facility] Address: [address] [place] [address] Performed By: #### 5 8410-2 ####[facility]ATORYCLIA [id number] [address] [place] HIGH SENSITIVITY TROPONIN To n 02-25-2025 Troponin T.cardiac High sensitivity method [Mass/Vol] 91 ng/L High <12 [facility] Comment on above: Order Comment: Speci men Type: BLOOD SPECIMENOrdering Facility: [facility] Address: [address] [place] [address] Performed By: #### H STNT ####[facility]ATORYCLIA [id number] [address] Troponin T.cardiac High sensitivity method [Mass/Vol] 114 ng/L High <12 [facility] Comment on above: Order Comment: Speci men Type: BLOOD SPECIMENOrdering Facility: [facility] Address: [address] [place] [address] Performed By: #### H STNT ####[facility]ATORYCLIA [id number] [address] [place] aPTT PPPon 02-25-2025 aPTT Coag (PPP) [Time] 66.3 s High 23.0-32.4 [facility] Comment on above: Order Comment: Speci men Type: BLOOD SPECIMENOrdering Facility: [facility] Address: [address] [place] [address] Performed By: #### 1 4979-9 ####[facility]ORATORYCLIA [id number] [place] [address] [place] Basic metabolic 2000 panelon 02-24-2025 Anion gap [Moles/Vol] 10 mmol/L Normal 8-15 [facility] Comment on above: Order Comment: Speci men Type: BLOOD SPECIMENOrdering Facility: [facility] Address: [address] [place] [address] Performed By: #### 2 4321-2, ####[facility]ORATORYCLIA [id number] [place] [address] [place] Calcium [Mass/Vol] 8.8 mg/dL Normal 8.5-10.2 [facility] Comment on above: Order Comment: Speci men Type: BLOOD SPECIMENOrdering Facility: [facility] Address: [address] [place] [address] Performed By: #### 2 4321-2, ####[facility]ATORYCLIA [id number] [place] [address] [place] Chloride [Moles/Vol] 102 mmol/L Normal 98-107 [facility] Comment on above: Order Comment: Speci men Type: BLOOD SPECIMENOrdering Facility: [facility] Address: [address] [place] [address] Performed By: #### 2 4321-2, ####[facility]ATORYCLIA [id number] [place] [id number] [place] CO2 [Moles/Vol] 26 mmol/L Normal 22-30 [facility] Comment on above: Order Comment: Speci men Type: BLOOD SPECIMENOrdering Facility: [facility] Address: [address] [place] [address] Performed By: #### 2 4321-2, ####[facility]ORATORYCLIA [id number] [place] [address] [place] Creatinine [Mass/Vol] 1.06 mg/dL Normal 0.73-1.22 [facility] Comment on above: Order Comment: Speci men Type: BLOOD SPECIMENOrdering Facility: [facility] Address: [address] [place] [address] Performed By: #### 2 4321-2, 16764-9 ####[facility]PITALIA [id number] [place] [id number] [facility] [place] Creatinine and Glomerular filtration rate.predicted panel (S/P/Bld) 74 mL/min/1.73m??? Normal >=60 [facility] Comment on above: Order Comment: Jose Cruz alex Type: BLOOD SPECIMENOrdering Facility: [facility] Address: [address] [place] [address] Result Comment: Mary Kay mated Glomerular Filtration [...] actual GFR. Performed By: #### 2 4321-2, 30210-8 ####[facility]OSPITALIA [id number] [place] [id number] [place] Glucose [Mass/Vol] 191 mg/dL High 74-99 [facility] Comment on above: Order Comment: Jose Cruz johnson Type: BLOOD SPECIMENOrdering Facility: [facility] Address: [address] [place] [address] Result Comment: The [place] Diabetes Association (ADA) provides guidance for cutoff [...] Standards of Medical Care in Diabetes 2016, [place] Diabetes Association. Diabetes Care. 2016.39(Suppl 1). Performed By: #### 2 4321-2, ####[facility]ATORYCLIA [id number] [place] [address] [place] Potassium [Moles/Vol] 4.1 mmol/L Normal 3.7-5.1 [facility] Comment on above: Order Comment: Speci men Type: BLOOD SPECIMENOrdering Facility: [facility] Address: [address] [place] [address] Performed By: #### 2 4321-2, ####[facility]ATORYCLIA [id number] [place] [address] [place] Sodium [Moles/Vol] 138 mmol/L Normal 136-144 [facility] Comment on above: Order Comment: Speci men Type: BLOOD SPECIMENOrdering Facility: [facility] Address: [address] [place] [address] Performed By: #### 2 432-2, ####[facility]ATORYCLIA [id number] [address] [place] Urea nitrogen [Mass/Vol] 14 mg/dL Normal 9-24 [facility] Comment on above: Order Comment: Speci men Type: BLOOD SPECIMENOrdering Facility: [facility] Address: [address] [place] [address] Performed By: #### 2 432-2, ####[facility]ATORYCLIA [id number] [address] [place] CBC panel Auto (Bld)on 02-24 Erythrocyte distribution width (RBC) [Ratio] 13.2 % Normal 11.5-15.0 [facility] Comment on above: Order Comment: Speci men Type: BLOOD SPECIMENOrdering Facility: [facility] Address: [address] [place] [address] Performed By: #### 5 8410-2 ####[facility]ATORYCLIA [id number] [address] [place] Hematocrit (Bld) [Volume fraction] 31.5 % Low 39.0-51.0 [facility] Comment on above: Order Comment: Speci men Type: BLOOD SPECIMENOrdering Facility: [facility] Address: [address] [place] [address] Performed By: #### 5 8410-2 ####[facility]ATORYCLIA [id number] [address] [place] [facility] Hemoglobin (Bld) [Mass/Vol] 10.0 g/dL Low 13.0-17.0 [facility] Comment on above: Order Comment: Speci men Type: BLOOD SPECIMENOrdering Facility: [facility] Address: [address] [place] [address] Performed By: #### 5 8410-2 ####[facility]ATORYCLIA [id number] [address] [place] MCH (RBC) [Entitic mass] 27.6 pg Normal 26.0-34.0 [facility] Comment on above: Order Comment: Speci men Type: BLOOD SPECIMENOrdering Facility: [facility] Address: [address] [place] [address] Performed By: #### 5 8410-2 ####[facility]ATORYCLIA [id number] [address] [place] MCHC (RBC) [Mass/Vol] 31.7 g/dL Normal 30.5-36.0 [facility] Comment on above: Order Comment: Speci men Type: BLOOD SPECIMENOrdering Facility: [facility] Address: [address] [place] [address] Performed By: #### 5 8410-2 ####[facility]ATORYCLIA [id number] [address] [place] MCV (RBC) [Entitic vol] 87.0 fL Normal 80.0-100.0 [facility] Comment on above: Order Comment: Speci men Type: BLOOD SPECIMENOrdering Facility: [facility] Address: [address] [place] [address] Performed By: #### 5 8410-2 ####[facility]ATORYCLIA [id number] [address] [place] Nucleated RBC (Bld) [#/Vol] 10*3/uL Normal <0.01 [facility] Comment on above: Order Comment: Speci men Type: BLOOD SPECIMENOrdering Facility: [facility] Address: [address] [place] [address] Performed By: #### 5 8410-2 ####[facility]ATORYCLIA [id number] [place] [address] [place] Platelet mean volume (Bld) [Entitic vol] 10.4 fL Normal 9.0-12.7 [facility] Comment on above: Order Comment: Speci men Type: BLOOD SPECIMENOrdering Facility: [facility] Address: [address] [place] [address] Performed By: #### 5 8410-2 ####[facility]ATORYCLIA [id number] [address] [place] Platelets (Bld) [#/Vol] 234 10*3/uL Normal 150-400 [facility] Comment on above: Order Comment: Speci men Type: BLOOD SPECIMENOrdering Facility: [facility] Address: [address] [place] [address] Performed By: #### 5 8410-2 ####[facility]ATORYCLIA [id number] [address] [place] RBC (Bld) [#/Vol] 3.62 10*6/uL Low 4.20-6.00 [facility] Comment on above: Order Comment: Speci men Type: BLOOD SPECIMENOrdering Facility: [facility] Address: [address] [place] [address] Performed By: #### 5 8410-2 ####[facility]ATORYCLIA [id number] [address] [place] WBC (Bld) [#/Vol] 10.34 10*3/uL Normal 3.70-11.00 [facility] Comment on above: Order Comment: Speci men Type: BLOOD SPECIMENOrdering Facility: [facility] Address: [address] [place] [address] Performed By: #### 5 8410-2 ####[facility]ATORYCLIA [id number] [address] [place] ED NOTEon 02-24-2025 ED NOTE HNO ID: [id number] Author: JUSTIN CHEEMA, RN Service: Nursing Author Type: Registered Nurse Type: ED Notes Filed: 02/24/2025 00:15 Note Text: Report given to SCHEDULE MAKER, all questions answered. Normal [facility] HIGH SENSITIVITY TROPONIN To n 02-24-2025 Troponin T.cardiac High sensitivity method [Mass/Vol] 127 ng/L High <12 [facility] Comment on above: Order Comment: Speci men Type: BLOOD SPECIMENOrdering Facility: [facility] Address: [address] [place] [address] Performed By: #### H STNT ####[facility]ATORYCLIA [id number] [address] STATES [facility] Troponin T.cardiac High sensitivity method [Mass/Vol] 117 ng/L High <12 [facility] Comment on above: Order Comment: Speci men Type: BLOOD SPECIMENOrdering Facility: [facility] Address: [address] [place] [address] Performed By: #### H STNT ####[facility]ATORYCLIA [id number] [address] [place] Troponin T.cardiac High sensitivity method [Mass/Vol] 84 ng/L High <12 [facility] Comment on above: Order Comment: Speci men Type: BLOOD SPECIMENOrdering Facility: [facility] Address: [address] [place] [address] Performed By: #### H STNT ####[facility] LABORATORYIA [id number] [address] [place] Magnesium SerPl-mCncon 02-24 Magnesium [Mass/Vol] 2.1 mg/dL Normal 1.7-2.3 [facility] Comment on above: Order Comment: Speci men Type: BLOOD SPECIMENOrdering Facility: [facility] Address: [address] [place] [address] Performed By: #### 2 4321-2, 43250-9 ####[facility]ATORYCLIA [id number] [place] [address] [place] STAPHYLOCOCCUS AUREUS AND MR SA SCREEN, PCR, NASALon 02-24-2025 S. aureus and MRSA panel JUAN F+probe (Nose) Methicillin-SUSCEPTIBLE Staphylococcus aureus Detected Abnormal Not Detected [facility] Comment on above: Order Comment: Speci men Type: SWABOrdering Facility: [facility] Address: [address] [place] [address] Performed By: #### S APCR ####[facility]ATORYCLIA [id number] [place] [address] [place] aPTT PPPon 02-24-2025 aPTT Coag (PPP) [Time] 70.2 s High 23.0-32.4 [facility] Comment on above: Order Comment: Speci men Type: BLOOD SPECIMENOrdering Facility: [facility] Address: [address] [place] [address] Performed By: #### 1 4979-9 ####[facility]ATORYCLIA [id number] [place] [address] [place] aPTT Coag (PPP) [Time] 60.8 s High 23.0-32.4 [facility] Comment on above: Order Comment: Speci men Type: BLOOD SPECIMENOrdering Facility: [facility] Address: [address] [place] [address] Performed By: #### 1 4979-9 ####[facility]ATORYCLIA [id number] [place] [address] [place] aPTT Coag (PPP) [Time] 85.5 s High 23.0-32.4 [facility] Comment on above: Order Comment: Speci men Type: BLOOD SPECIMENOrdering Facility: [facility] Address: [address] [place] [address] Performed By: #### 1 4979-9 ####[facility]ATORYCLIA [id number] [place] [address] [place] aPTT Coag (PPP) [Time] 43.6 s High 23.0-32.4 [facility] Comment on above: Order Comment: Speci men Type: BLOOD SPECIMENOrdering Facility: [facility] Address: [address] [place] [address] Performed By: #### 1 4979-9 ####[facility]ATORYCLIA [id number] [place] [id number] [place] Basic metabolic 2000 panelon 02-23-2025 Anion gap [Moles/Vol] 12 mmol/L Normal 8-15 [facility] Comment on above: Order Comment: Speci men Type: BLOOD SPECIMENOrdering Facility: [facility] Address: [address] [place] [address] Performed By: #### 2 4321-2, 69596-1, ####[facility]ORYCLIA [id number] [place] [address] [place] Calcium [Mass/Vol] 9.0 mg/dL Normal 8.5-10.2 [facility] Comment on above: Order Comment: Speci men Type: BLOOD SPECIMENOrdering Facility: [facility] Address: [address] [place] [address] Performed By: #### 2 4321-2, 17323-9, ####[facility]ORYCLIA [id number] [place] [address] [place] Chloride [Moles/Vol] 99 mmol/L Normal 98-107 [facility] Comment on above: Order Comment: Speci men Type: BLOOD SPECIMENOrdering Facility: [facility] Address: [address] [place] [address] Performed By: #### 2 4321-2, 36766-9, ####[facility]ATORYCLIA [id number] [place] [address] [place] CO2 [Moles/Vol] 26 mmol/L Normal 22-30 [facility] Comment on above: Order Comment: Speci men Type: BLOOD SPECIMENOrdering Facility: [facility] Address: [address] [place] [address] Performed By: #### 2 4321-2, 56483-1, ####[facility]ATORYCLIA [id number] [place] [address] [place] Creatinine [Mass/Vol] 1.00 mg/dL Normal 0.73-1.22 [facility] Comment on above: Order Comment: Speci men Type: BLOOD SPECIMENOrdering Facility: [facility] Address: [address] [place] [address] Performed By: #### 2 4321-2, 95905-5, ####[facility] [id number] [address] [facility] Creatinine and Glomerular filtration rate.predicted panel (S/P/Bld) 79 mL/min/1.73m??? Normal >=60 [facility] Comment on above: Order Comment: Speci men Type: BLOOD SPECIMENOrdering Facility: [facility] Address: [address] [place] [address] Result Comment: Mary Kay mated Glomerular Filtration [...] actual GFR. Performed By: #### 2 4321-2, 52753-5, ####[facility]ORATORYCLIA [id number] [place] [address] [place] Glucose [Mass/Vol] 280 mg/dL High 74-99 [facility] Comment on above: Order Comment: Speci men Type: BLOOD SPECIMENOrdering Facility: [facility] Address: [address] [place] [address] Result Comment: The [place] Diabetes Association (ADA) provides guidance for cutoff [...] Standards of Medical Care in Diabetes 2016, [place] Diabetes Association. Diabetes Care. 2016.39(Suppl 1). Performed By: #### 2 4321-2, 43838-7, ####[facility]ATORYCLIA [id number] [place] [address] [place] Potassium [Moles/Vol] 4.0 mmol/L Normal 3.7-5.1 [facility] Comment on above: Order Comment: Jose Cruz johnson Type: BLOOD SPECIMENOrdering Facility: [facility] Address: [address] [place] [address] Performed By: #### 2 4321-2, 81988-7, ####[facility]ATORYCLIA [id number] [place] [address] [place] Sodium [Moles/Vol] 137 mmol/L Normal 136-144 [facility] Comment on above: Order Comment: Jose Cruz johnson Type: BLOOD SPECIMENOrdering Facility: [facility] Address: [address] [place] [address] Performed By: #### 2 4321-2, 13921-9, ####[facility]ATORYCLIA [id number] [place] [address] [place] Urea nitrogen [Mass/Vol] 16 mg/dL Normal 9-24 [facility] Comment on above: Order Comment: Jose Cruz johnson Type: BLOOD SPECIMENOrdering Facility: [facility] Address: [address] [place] [address] Performed By: #### 2 4321-2, 48742-4, ####[facility]ATORYCLIA [id number] [place] [address] [place] CBC W Auto Differential pane l (Bld)on 02-23-2025 Basophils (Bld) [#/Vol] 0.06 10*3/uL Normal <0.11 [facility] Comment on above: Order Comment: Speci men Type: BLOOD SPECIMENOrdering Facility: [facility] Address: [address] [place] [address] Performed By: #### 5 7021-8 ####[facility]ATORYCLIA [id number] [address] [place] Basophils/100 WBC (Bld) 0.5 % Normal [facility] Comment on above: Order Comment: Speci men Type: BLOOD SPECIMENOrdering Facility: [facility] Address: [address] [place] [address] Performed By: #### 5 7021-8 ####[facility]ATORYCLIA [id number] [address] Differential cell count method Nom (Bld) Auto Normal [facility] Comment on above: Order Comment: Speci men Type: BLOOD SPECIMENOrdering Facility: [facility] Address: [address] [place] [address] Performed By: #### 5 7021-8 ####[facility]ATORYCLIA [id number] [address] [place] Eosinophils (Bld) [#/Vol] 0.12 10*3/uL Normal <0.46 [facility] Comment on above: Order Comment: Speci men Type: BLOOD SPECIMENOrdering Facility: [facility] Address: [address] [place] [address] Performed By: #### 5 7021-8 ####[facility]ATORYCLIA [id number] [address] Eosinophils/100 WBC (Bld) 1.1 % Normal [facility] Comment on above: Order Comment: Speci men Type: BLOOD SPECIMENOrdering Facility: [facility] Address: [address] [place] [address] Performed By: #### 5 7021-8 ####[facility]ATORYCLIA [id number] [address] STATES [facility] Erythrocyte distribution width (RBC) [Ratio] 13.3 % Normal 11.5-15.0 [facility] Comment on above: Order Comment: Speci men Type: BLOOD SPECIMENOrdering Facility: [facility] Address: [address] [place] [address] Performed By: #### 5 7021-8 ####[facility]ORYCLIA [id number] [address] [place] Hematocrit (Bld) [Volume fraction] 33.7 % Low 39.0-51.0 [facility] Comment on above: Order Comment: Speci men Type: BLOOD SPECIMENOrdering Facility: [facility] Address: [address] [place] [address] Performed By: #### 5 7021-8 ####[facility]ORYCLIA [id number] [address] [place] Hemoglobin (Bld) [Mass/Vol] 10.8 g/dL Low 13.0-17.0 [facility] Comment on above: Order Comment: Speci men Type: BLOOD SPECIMENOrdering Facility: [facility] Address: [address] [place] [address] Performed By: #### 5 7021-8 ####[facility]ATORYCLIA [id number] [address] [place] Immature granulocytes (Bld) [#/Vol] 0.08 10*3/uL Normal <0.10 [facility] Comment on above: Order Comment: Speci men Type: BLOOD SPECIMENOrdering Facility: [facility] Address: [address] [place] [address] Performed By: #### 5 7021-8 ####[facility]ATORYCLIA [id number] [address] [place] Immature granulocytes/100 WBC (Bld) 0.7 % Normal [facility] Comment on above: Order Comment: Speci men Type: BLOOD SPECIMENOrdering Facility: [facility] Address: [address] [place] [address] Performed By: #### 5 7021-8 ####[facility]ATORYCLIA [id number] [address] Lymphocytes (Bld) [#/Vol] 1.20 10*3/uL Normal 1.00-4.00 [facility] Comment on above: Order Comment: Speci men Type: BLOOD SPECIMENOrdering Facility: [facility] Address: [address] [place] [address] Performed By: #### 5 7021-8 ####[facility]ATORYCLIA [id number] [address] Lymphocytes/100 WBC (Bld) 10.5 % Normal [facility] Comment on above: Order Comment: Speci men Type: BLOOD SPECIMENOrdering Facility: [facility] Address: [address] [place] [address] Performed By: #### 5 7021-8 ####[facility]ATORYCLIA [id number] [address] [place] MCH (RBC) [Entitic mass] 26.9 pg Normal 26.0-34.0 [facility] Comment on above: Order Comment: Speci men Type: BLOOD SPECIMENOrdering Facility: [facility] Address: [address] [place] [address] Performed By: #### 5 7021-8 ####[facility]ORYCLIA [id number] [address] [place] MCHC (RBC) [Mass/Vol] 32.0 g/dL Normal 30.5-36.0 [facility] Comment on above: Order Comment: Speci men Type: BLOOD SPECIMENOrdering Facility: [facility] Address: [address] [place] [address] Performed By: #### 5 7021-8 ####[facility]ATORYCLIA [id number] [address] MCV (RBC) [Entitic vol] 84.0 fL Normal 80.0-100.0 [facility] Comment on above: Order Comment: Speci men Type: BLOOD SPECIMENOrdering Facility: [facility] Address: [address] [place] [address] Performed By: #### 5 7021-8 ####[facility] LABORATORYCLIA [id number] [address] [place] Monocytes (Bld) [#/Vol] 0.80 10*3/uL Normal <0.87 [facility] Comment on above: Order Comment: Speci men Type: BLOOD SPECIMENOrdering Facility: [facility] Address: [address] [place] [address] Performed By: #### 5 7021-8 ####[facility]ORYCLIA [id number] [address] [place] Monocytes/100 WBC (Bld) 7.0 % Normal [facility] Comment on above: Order Comment: Speci men Type: BLOOD SPECIMENOrdering Facility: [facility] Address: [address] [place] [address] Performed By: #### 5 7021-8 ####[facility]ATORYCLIA [id number] [address] [place] Neutrophils (Bld) [#/Vol] 9.12 10*3/uL High 1.45-7.50 [facility] Comment on above: Order Comment: Speci men Type: BLOOD SPECIMENOrdering Facility: [facility] Address: [address] [place] [address] Performed By: #### 5 7021-8 ####[facility]ATORYCLIA [id number] [address] [place] Neutrophils/100 WBC (Bld) 80.2 % Normal [facility] Comment on above: Order Comment: Speci men Type: BLOOD SPECIMENOrdering Facility: [facility] Address: [address] [place] [address] Performed By: #### 5 7021-8 ####[facility]ATORYCLIA [id number] [address] [place] Nucleated RBC (Bld) [#/Vol] 10*3/uL Normal <0.01 [facility] Comment on above: Order Comment: Speci men Type: BLOOD SPECIMENOrdering Facility: [facility] Address: [address] [place] [address] Performed By: #### 5 7021-8 ####[facility]ATORYCLIA [id number] [place] [address] [place] Nucleated RBC/100 WBC (Bld) [Ratio] 0.0 /100 WBC Normal [facility] Comment on above: Order Comment: Speci men Type: BLOOD SPECIMENOrdering Facility: [facility] Address: [address] [place] [address] Performed By: #### 5 7021-8 ####[facility]ATORYCLIA [id number] [place] [address] [place] Platelet mean volume (Bld) [Entitic vol] 9.9 fL Normal 9.0-12.7 [facility] Comment on above: Order Comment: Speci men Type: BLOOD SPECIMENOrdering Facility: [facility] Address: [address] [place] [address] Performed By: #### 5 7021-8 ####[facility]ATORYCLIA [id number] [address] [place] Platelets (Bld) [#/Vol] 252 10*3/uL Normal 150-400 [facility] Comment on above: Order Comment: Speci men Type: BLOOD SPECIMENOrdering Facility: [facility] Address: [address] [place] [address] Performed By: #### 5 7021-8 ####[facility]ATORYCLIA [id number] [place] [address] [place] RBC (Bld) [#/Vol] 4.01 10*6/uL Low 4.20-6.00 [facility] Comment on above: Order Comment: Speci men Type: BLOOD SPECIMENOrdering Facility: [facility] Address: [address] [place] [address] [place] [address] Performed By: #### 5 7021-8 ####[facility]ATORYCLIA [id number] [place] [address] [facility] WBC (Bld) [#/Vol] 11.38 10*3/uL High 3.70-11.00 [facility] Comment on above: Order Comment: Speci men Type: BLOOD SPECIMENOrdering Facility: [facility] Address: [address] [place] [address] Performed By: #### 5 7021-8 ####[facility]ATORYCLIA [id number] [place] [address] [facility] ED NOTEon 02-23-2025 ED NOTE HNO ID: [id number] Author: JUSTIN CHEEMA RN Service: Nursing Author Type: Registered Nurse Type: ED Notes Filed: 02/23/2025 21:55 Note Text: Nitro drip order ended. All needs currently met. Normal [facility] ED NOTE Normal [facility] ED NOTE Normal [facility] ED NOTE HNO ID: [id number] Author: FRANCOISE KELSEY RN Service: Emergency Medicine Author Type: Registered Nurse Type: ED Notes Filed: 02/23/2025 21:12 Note Text: Gave report to Eloy KARIMI [facility] ED NOTE HNO ID: [id number] Author: FRANCOISE KELSEY RN Service: Emergency Medicine Author Type: Registered Nurse Type: ED Notes Filed: 02/23/2025 20:52 Note Text: Pt states he has no CP at this time. Normal [facility] ED NOTE Normal [facility] ED NOTE HNO ID: [id number] Author: FRANCOISE KELSEY RN Service: Emergency Medicine Author Type: Registered Nurse Type: ED Notes Filed: 02/23/2025 20:46 Note Text: Giving 0.4mg of Nitro at this time Normal [facility] ED NOTE HNO ID: [id number] Author: FRANCOISE KELSEY RN Service: Emergency Medicine Author Type: Registered Nurse Type: ED Notes Filed: 02/23/2025 20:46 Note Text: Giving 324mg of ASA at this time Normal [facility] ED NOTE HNO ID: [id number] Author: FRANCOISE KELSEY RN Service: Emergency Medicine Author Type: Registered Nurse Type: ED Notes Filed: 02/23/2025 20:40 Note Text: Obtaining more access at this time Normal [facility] ED NOTE HNO ID: [id number] Author: FRANCOISE KELSEY RN Service: Emergency Medicine Author Type: Registered Nurse Type: ED Notes Filed: 02/23/2025 20:38 Note Text: Applied Zol pads Normal [facility] ED NOTE HNO ID: [id number] Author: FRANCOISE KELSEY RN Service: Emergency Medicine Author Type: Registered Nurse Type: ED Notes Filed: 02/23/2025 20:39 Note Text: ED attending at bedside Normal [facility] ED NOTE HNO ID: [id number] Author: FRANCOISE KELSEY RN Service: Emergency Medicine Author Type: Registered Nurse Type: ED Notes Filed: 02/23/2025 20:36 Note Text: Dr. Montes at bedside [facility] ED NOTE HNO ID: [id number] Author: FRANCOISE KELSEY RN Service: Emergency Medicine Author Type: Registered Nurse Type: ED Notes Filed: 02/23/2025 20:36 Note Text: STEMI called at this time [facility] ED NOTE Normal [facility] ED PROV NOTEon 02-23-2025 ED PROV NOTE Normal [facility] ED PROV NOTE Normal [facility] HIGH SENSITIVITY TROPONIN T (INITIAL)on 02-23-2025 Troponin T.cardiac High sensitivity method [Mass/Vol] 29 ng/L High <12 [facility] Comment on above: Order Comment: Speci men Type: BLOOD SPECIMENOrdering Facility: [facility] Address: [address] [place] [address] Performed By: #### L [id number] ####[facility]ATORYCLIA [id number] [place] [address] [place] HIGH SENSITIVITY TROPONIN T (SECOND)on 02-23-2025 Troponin T.cardiac High sensitivity method [Mass/Vol] 40 ng/L High <12 [facility] Comment on above: Order Comment: Speci men Type: BLOOD SPECIMENOrdering Facility: [facility] Address: [address] [place] [address] Performed By: #### L [id number] ####[facility]ATORYCLIA [id number] [address] HIGH SENSITIVITY TROPONIN T (THIRD) 3 HRS AFTER INITIALon 02-23-2025 Troponin T.cardiac High sensitivity method [Mass/Vol] 53 ng/L High <12 [facility] Comment on above: Order Comment: Speci men Type: BLOOD SPECIMENOrdering Facility: [facility] Address: [address] [place] [address] Performed By: #### L [id number] ####[facility]ORYCLIA [id number] [address] HISTORY PHYSICALon HISTORY PHYSICAL Normal [facility] Magnesium SerPl-mCncon 02-23 Magnesium [Mass/Vol] 1.4 mg/dL Low 1.7-2.3 [facility] Comment on above: Order Comment: Speci men Type: BLOOD SPECIMENOrdering Facility: [facility] Address: [address] [place] [address] Performed By: #### 2 4321-2, 00624-1, 96781-8 ####[facility]ORYCLIA [id number] [address] NT-proBNP SerPl-mCncon 02-23 Natriuretic peptide.B prohormone N-Terminal [Mass/Vol] 191 pg/mL High <125 [facility] Comment on above: Order Comment: Speci men Type: BLOOD SPECIMENOrdering Facility: [facility] Address: [address] [place] [address] Performed By: #### 2 4321-2, 86347-3, 06522-7 ####[facility]ATORYCLIA [id number] [address] [place] PT panel Coag (PPP)on 2024 INR Coag (PPP) [Relative time] 0.9 {INR} Normal 0.9-1.3 [facility] Comment on above: Order Comment: Jose Cruz johnson Type: BLOOD SPECIMENOrdering Facility: [facility] Address: [address] [place], [place] [address] Result Comment: Antionette min K Antagonist (VKA) Therapeutic Range: INR 2 to 3 (Target INR of 2.5)Note: For patients treated with VKA drugs, such as warfarin, the [place] [employer]icians 2012 Guideline recommends [...] al. Chest 2012, 141:7S-47SNishnidia RA, et al. [facility] 2017, 70: 252-289 Performed By: #### 3 4528-0, 79482-4 ####[facility]ORYCLIA [id number] [place] [address] [place] PT Coag (PPP) [Time] 10.3 s Normal 9.7-13.0 [facility] Comment on above: Order Comment: Jose Cruz johnson Type: BLOOD SPECIMENOrdering Facility: [facility] Address: [address] [place] [id number] Performed By: #### 3 4528-0, 29696-7 ####[facility]ORYCLIA [id number] [place] [address] [place] XR CHEST 1V FRONTALon 2024 XR CHEST 1V FRONTAL Normal [facility] aPTT PPPon 02-23-2025 aPTT Coag (PPP) [Time] 30.4 s Normal 23.0-32.4 [facility] Comment on above: Order Comment: Speci men Type: BLOOD SPECIMENOrdering Facility: [facility] Address: [address] [place] [address] Performed By: #### 3 4528-0, 21931-0 ####[facility]ATORYCLIA [id number] [place] [id number] [place] Basic metabolic 2000 panelon 02-05-2025 Anion gap [Moles/Vol] 13 mmol/L Normal 8-15 [facility] Comment on above: Order Comment: Speci men Type: BLOOD SPECIMENOrdering Facility: [facility] Address: [address] [place] [address] Performed By: #### 2 4321-2 ####[facility]ORYCLIA [id number] [place] [address] [place] Calcium [Mass/Vol] 10.1 mg/dL Normal 8.5-10.2 [facility] Comment on above: Order Comment: Speci men Type: BLOOD SPECIMENOrdering Facility: [facility] Address: [address] [place] [address] Performed By: #### 2 4321-2 ####[facility]ATORYCLIA [id number] [place] [address] [place] Chloride [Moles/Vol] 98 mmol/L Normal 98-107 [facility] Comment on above: Order Comment: Speci men Type: BLOOD SPECIMENOrdering Facility: Address: [address] [place] [address] Performed By: #### 2 4321-2 ####[facility]ATORYCLIA [id number] [place] [address] [place] CO2 [Moles/Vol] 26 mmol/L Normal 22-30 [facility] Comment on above: Order Comment: Speci men Type: BLOOD SPECIMENOrdering Facility: [facility] Address: [facility] [place] [address] Performed By: #### 2 4321-2 ####[facility]ORYCLIA [id number] [place] [address] [place] Creatinine [Mass/Vol] 1.02 mg/dL Normal 0.73-1.22 [facility] Comment on above: Order Comment: Jose Cruz johnson Type: BLOOD SPECIMENOrdering Facility: [address] Address: [address] [place] [address] Performed By: #### 2 4321-2 ####[facility]ATORYCLIA [id number] [address] Creatinine and Glomerular filtration rate.predicted panel (S/P/Bld) 78 mL/min/1.73m??? Normal >=60 [facility] Comment on above: Order Comment: Dahianamarleny johnson Type: BLOOD SPECIMENOrdering Facility: [address] Address: [facility] [place] [address] Result Comment: Mary Kay mated Glomerular Filtration [...] actual GFR. Performed By: #### 2 4321-2 ####[facility]ATORYCLIA [id number] [place] [address] [place] Glucose [Mass/Vol] 240 mg/dL High 74-99 [facility] Comment on above: Order Comment: Jose Cruz johnson Type: BLOOD SPECIMENOrdering Facility: [address] Address: [address] [place] [address] Result Comment: The [place] Diabetes Association (ADA) provides guidance for cutoff [...] Standards of Medical Care in Diabetes 2016, [place] Diabetes Association. Diabetes Care. 2016.39(Suppl 1). Performed By: #### 2 4321-2 ####[facility]ATORYCLIA [id number] [address] [place] Potassium [Moles/Vol] 4.1 mmol/L Normal 3.7-5.1 [facility] Comment on above: Order Comment: Speci men Type: BLOOD SPECIMENOrdering Facility: [facility] Address: [address] [place] [address] Performed By: #### 2 4321-2 ####[facility]ATORYCLIA [id number] [place] [address] [place] Sodium [Moles/Vol] 137 mmol/L Normal 136-144 [facility] Comment on above: Order Comment: Speci men Type: BLOOD SPECIMENOrdering Facility: [facility] Address: [address] [place] [address] Performed By: #### 2 4321-2 ####[facility]ATORYCLIA [id number] [place] [address] [place] Urea nitrogen [Mass/Vol] 19 mg/dL Normal 9-24 [facility] Comment on above: Order Comment: Speci men Type: BLOOD SPECIMENOrdering Facility: [facility] Address: [address] [place] [address] Performed By: #### 2 4321-2 ####[facility]ATORYCLIA [id number] [place] [address] [place] CNOVon 01-29-2025 CNOV Normal [facility] CNOVon 11-23-2024 CNOV Normal [facility] CNPNon 11-22-2024 CNPN Normal [facility] CNPNon 11-16-2024 CNPN Normal [facility] CNPTOUTREACHon 11-15-2024 CNPTOUTREACH Normal [facility] Basic metabolic 2000 panelon 11-14-2024 Anion gap [Moles/Vol] 12 mmol/L Normal 8-15 [facility] Comment on above: Order Comment: Speci men Type: BLOOD SPECIMENOrdering Facility: [facility] Address: [address] [place] [address] Performed By: #### 2 4321-2 ####[facility]ATORYCLIA [id number] [place] [address] [place] Calcium [Mass/Vol] 10.1 mg/dL Normal 8.5-10.2 [facility] Comment on above: Order Comment: Speci men Type: BLOOD SPECIMENOrdering Facility: [facility] Address: [address] [place] [address] Performed By: #### 2 4321-2 ####[facility]ATORYCLIA [id number] [place] [address] [place] Chloride [Moles/Vol] 103 mmol/L Normal 98-107 [facility] Comment on above: Order Comment: Speci men Type: BLOOD SPECIMENOrdering Facility: [facility] Address: [address] [place] [address] Performed By: #### 2 4321-2 ####[facility]ATORYCLIA [id number] [address] [place] CO2 [Moles/Vol] 25 mmol/L Normal 22-30 [facility] Comment on above: Order Comment: Speci men Type: BLOOD SPECIMENOrdering Facility: [facility] Address: [address] [place] [address] Performed By: #### 2 4321-2 ####[facility]ATORYCLIA [id number] [address] [place] Creatinine [Mass/Vol] 1.07 mg/dL Normal 0.73-1.22 [facility] Comment on above: Order Comment: Speci men Type: BLOOD SPECIMENOrdering Facility: [facility] Address: [address] [place] [address] Performed By: #### 2 4321-2 ####[facility]ATORYCLIA [id number] [address] Creatinine and Glomerular filtration rate.predicted panel (S/P/Bld) 74 mL/min/1.73m??? Normal >=60 [facility] Comment on above: Order Comment: Speci men Type: BLOOD SPECIMENOrdering Facility: [facility] Address: [address] [place] [address] Result Comment: Mary Kay mated Glomerular Filtration [...] actual GFR. Performed By: #### 2 4321-2 ####[facility]ATORYCLIA [id number] [place] [address] [place] Glucose [Mass/Vol] 153 mg/dL High 74-99 [facility] Comment on above: Order Comment: Jose Cruz johnson Type: BLOOD SPECIMENOrdering Facility: [facility] Address: [address] [place] [address] Result Comment: The [place] Diabetes Association (ADA) provides guidance for cutoff [...] Standards of Medical Care in Diabetes 2016, [place] Diabetes Association. Diabetes Care. 2016.39(Suppl 1). Performed By: #### 2 4321-2 ####[facility]ATORYCLIA [id number] [place] [address] [place] Potassium [Moles/Vol] 4.2 mmol/L Normal 3.7-5.1 [facility] Comment on above: Order Comment: Jose Cruz johnson Type: BLOOD SPECIMENOrdering Facility: [facility] Address: [address] [place] [id number] Performed By: #### 2 4321-2 ####[facility]ATORYCLIA [id number] [place] [address] [place] Sodium [Moles/Vol] 140 mmol/L Normal 136-144 [facility] Comment on above: Order Comment: Speci men Type: BLOOD SPECIMENOrdering Facility: [facility] Address: [address] [place] [address] Performed By: #### 2 4321-2 ####[facility] LABORATORYCLIA [id number] [place] [address] [place] Urea nitrogen [Mass/Vol] 20 mg/dL Normal 9-24 [facility] Comment on above: Order Comment: Speci men Type: BLOOD SPECIMENOrdering Facility: [facility] Address: [address] [place] [address] Performed By: #### 2 4321-2 ####[facility] LABORATORYCLIA [id number] [place] [address] [place] CNOVon 11-08-2024 CNOV Normal [facility] CNPTOUTREACHon 11-06-2024 CNPTOUTREACH Normal [facility] CBC panel Auto (Bld)on 11-04 Erythrocyte distribution width (RBC) [Ratio] 12.7 % Normal 11.5-15.0 [facility] Comment on above: Order Comment: Speci men Type: BLOOD SPECIMENOrdering Facility: [facility] Address: [address] [place] [address] Performed By: #### 5 8410-2 ####[facility] LABCLIA [id number] [place] [address] [place] Hematocrit (Bld) [Volume fraction] 25.0 % Low 39.0-51.0 [facility] Comment on above: Order Comment: Speci men Type: BLOOD SPECIMENOrdering Facility: [facility] Address: [address] [place] [address] Performed By: #### 5 8410-2 ####[facility] LABCLIA [id number] [place] [address] [place] Hemoglobin (Bld) [Mass/Vol] 8.2 g/dL Low 13.0-17.0 [facility] Comment on above: Order Comment: Speci men Type: BLOOD SPECIMENOrdering Facility: [facility] Address: [address] [place] [address] Performed By: #### 5 8410-2 ####[facility] LABIA [id number] [place] [address] [place] MCH (RBC) [Entitic mass] 29.7 pg Normal 26.0-34.0 [facility] Comment on above: Order Comment: Speci men Type: BLOOD SPECIMENOrdering Facility: [facility] Address: [address] [place] [address] Performed By: #### 5 8410-2 ####[facility] [id number] [place] [address] [place] MCHC (RBC) [Mass/Vol] 32.8 g/dL Normal 30.5-36.0 [facility] Comment on above: Order Comment: Speci men Type: BLOOD SPECIMENOrdering Facility: [facility] Address: [address] [place] [address] Performed By: #### 5 8410-2 ####[facility] [id number] [place] [address] [place] MCV (RBC) [Entitic vol] 90.6 fL Normal 80.0-100.0 [facility] Comment on above: Order Comment: Speci men Type: BLOOD SPECIMENOrdering Facility: [facility] Address: [address] [place] [address] Performed By: #### 5 8410-2 ####[facility] LABIA [id number] [place] [address] [place] Nucleated RBC (Bld) [#/Vol] 10*3/uL Normal <0.01 [facility] Comment on above: Order Comment: Speci men Type: BLOOD SPECIMENOrdering Facility: [facility] Address: [address] [place] [address] Performed By: #### 5 8410-2 ####[facility] LABCLIA [id number] [place] [address] [place] Platelet mean volume (Bld) [Entitic vol] 10.7 fL Normal 9.0-12.7 [facility] Comment on above: Order Comment: Speci men Type: BLOOD SPECIMENOrdering Facility: [facility] Address: [address] [place] [address] Performed By: #### 5 8410-2 ####[facility] LABCLIA [id number] [place] [address] [place] Platelets (Bld) [#/Vol] 264 10*3/uL Normal 150-400 [facility] Comment on above: Order Comment: Speci men Type: BLOOD SPECIMENOrdering Facility: [facility] Address: [address] [place] [address] Performed By: #### 5 8410-2 ####[facility] LABCLIA [id number] [place] [address] [place] RBC (Bld) [#/Vol] 2.76 10*6/uL Low 4.20-6.00 [facility] Comment on above: Order Comment: Speci men Type: BLOOD SPECIMENOrdering Facility: [facility] Address: [address] [place] [address] Performed By: #### 5 8410-2 ####[facility] LABCLIA [id number] [place] [address] [place] WBC (Bld) [#/Vol] 8.25 10*3/uL Normal 3.70-11.00 [facility] Comment on above: Order Comment: Speci men Type: BLOOD SPECIMENOrdering Facility: [facility] Address: [address] [place] [address] Performed By: #### 5 8410-2 ####[facility] LABCLIA [id number] [address] [address] [place] CNDSon 11-04-2024 CNDS Normal [facility] Comprehensive metabolic 2000 panelon 11-04-2024 Albumin [Mass/Vol] 3.8 g/dL Low 3.9-4.9 [facility] Comment on above: Order Comment: Speci men Type: BLOOD SPECIMENOrdering Facility: [facility] Address: [address] [place] [address] Performed By: #### 2 432-8, ####[facility] LABCLIA [id number] [place] [address] [place] ALP [Catalytic activity/Vol] 63 U/L Normal 38-113 [facility] Comment on above: Order Comment: Speci men Type: BLOOD SPECIMENOrdering Facility: [facility] Address: [address] [place] [address] Performed By: #### 2 432-8, ####[facility] LABCLIA [id number] [place] [id number] [place] ALT [Catalytic activity/Vol] 15 U/L Normal 10-54 [facility] Comment on above: Order Comment: Speci men Type: BLOOD SPECIMENOrdering Facility: [facility] Address: [address] [place], [place] [address] Performed By: #### 2 4323-8, ####[facility] LABCLIA [id number] [place] [id number] [place] Anion gap [Moles/Vol] 12 mmol/L Normal 8-15 [facility] Comment on above: Order Comment: Speci men Type: BLOOD SPECIMENOrdering Facility: [facility] Address: [address] [place], [place] [address] Performed By: #### 2 4323-8, ####[facility] LABCLIA [id number] [place] [address] [place] AST [Catalytic activity/Vol] 10 U/L Low 14-40 [facility] Comment on above: Order Comment: Speci men Type: BLOOD SPECIMENOrdering Facility: [facility] Address: [address] [place] [address] Performed By: #### 2 4323-8, ####[facility] LABCLIA [id number] [place] [address] [place] Bilirubin [Mass/Vol] 0.3 mg/dL Normal 0.2-1.3 [facility] Comment on above: Order Comment: Speci men Type: BLOOD SPECIMENOrdering Facility: [facility] Address: [address] [place] [address] Performed By: #### 2 4323-8, ####[facility] LABCLIA [id number] [place] [address] [place] Calcium [Mass/Vol] 9.7 mg/dL Normal 8.5-10.2 [facility] Comment on above: Order Comment: Speci men Type: BLOOD SPECIMENOrdering Facility: [facility] Address: [address] [place] [address] Performed By: #### 2 4323-8, ####[facility] LABCLIA [id number] [place] [address] [place] Chloride [Moles/Vol] 101 mmol/L Normal 98-107 [facility] Comment on above: Order Comment: Speci men Type: BLOOD SPECIMENOrdering Facility: [facility] Address: [address] [place] [address] Performed By: #### 2 4323-8, ####[facility] LABCLIA [id number] [place] [address] [place] CO2 [Moles/Vol] 22 mmol/L Normal 22-30 [facility] Comment on above: Order Comment: Speci men Type: BLOOD SPECIMENOrdering Facility: [facility] Address: [address] [place], [place] [address] Performed By: #### 2 4323-8, ####[facility] LABCLIA [id number] [address] [address] [place] Creatinine [Mass/Vol] 1.62 mg/dL High 0.73-1.22 [facility] Comment on above: Order Comment: Speci men Type: BLOOD SPECIMENOrdering Facility: [facility] Address: [address] [place] [address] Performed By: #### 2 4323-8, ####[facility] LABIA [id number] [place] [address] [place] Creatinine and Glomerular filtration rate.predicted panel (S/P/Bld) 45 mL/min/1.73m??? Low >=60 [facility] Comment on above: Order Comment: Jose Cruz men Type: BLOOD SPECIMENOrdering Facility: [facility] Address: [address] [place] [address] Result Comment: Mary Kay mated Glomerular Filtration [...] actual GFR. Performed By: #### 2 4323-8, ####[facility] LABIA [id number] [address] [address] [place] Glucose [Mass/Vol] 178 mg/dL High 74-99 [facility] Comment on above: Order Comment: Jose Cruz men Type: BLOOD SPECIMENOrdering Facility: [facility] Address: [address] [place] [address] Result Comment: [place] Diabetes Association (ADA) provides guidance for cutoff [...] Standards of Medical Care in Diabetes 2016, [place] Diabetes Association. Diabetes Care. 2016.39(Suppl 1). Performed By: #### 2 4323-04, ####[facility] LABCLIA [id number] [place] [address] [place] Potassium [Moles/Vol] 4.5 mmol/L Normal 3.7-5.1 [facility] Comment on above: Order Comment: Speci men Type: BLOOD SPECIMENOrdering Facility: [facility] Address: [address] [place] [address] Performed By: #### 2 4323-04, ####[facility] LABCLIA [id number] [place] [address] [place] Protein [Mass/Vol] 6.9 g/dL Normal 6.3-8.0 [facility] Comment on above: Order Comment: Speci men Type: BLOOD SPECIMENOrdering Facility: [facility] Address: [address] [place] [address] Performed By: #### 2 4323-04, ####[facility] LABCLIA [id number] [place] [id number] [place] Sodium [Moles/Vol] 135 mmol/L Low 136-144 [facility] Comment on above: Order Comment: Speci men Type: BLOOD SPECIMENOrdering Facility: [facility] Address: [address] [place] [address] Performed By: #### 2 4323-04, ####[facility] LABCLIA [id number] [place] [address] [place] Urea nitrogen [Mass/Vol] 29 mg/dL High 9-24 [facility] Comment on above: Order Comment: Speci men Type: BLOOD SPECIMENOrdering Facility: [facility] Address: [address] [place] [address] Performed By: #### 2 4323-8, 93547-9 ####[facility] LABCLIA [id number] [place] [address] [place] Magnesium SerPl-mCncon 11-04 Magnesium [Mass/Vol] 1.9 mg/dL Normal 1.7-2.3 [facility] Comment on above: Order Comment: Speci men Type: BLOOD SPECIMENOrdering Facility: [facility] Address: [address] [place] [address] Performed By: #### 2 4323-8, 97661-7 ####[facility] LABCLIA [id number] [place] [address] [place] CASE MANAGEMon 11-03-2024 CASE MANAGEM Normal [facility] CBC panel Auto (Bld)on 11-03 Erythrocyte distribution width (RBC) [Ratio] 12.8 % Normal 11.5-15.0 [facility] Comment on above: Order Comment: Speci men Type: BLOOD SPECIMENOrdering Facility: [facility] Address: [address] [place] [address] Performed By: #### 5 8410-2 ####[facility] LABCLIA [id number] [place] [address] [place] Hematocrit (Bld) [Volume fraction] 23.5 % Low 39.0-51.0 [facility] Comment on above: Order Comment: Speci men Type: BLOOD SPECIMENOrdering Facility: [facility] Address: [address] [place] [address] Performed By: #### 5 8410-2 ####[facility] LABCLIA [id number] [place] [address] [place] Hemoglobin (Bld) [Mass/Vol] 7.5 g/dL Low 13.0-17.0 [facility] Comment on above: Order Comment: Speci men Type: BLOOD SPECIMENOrdering Facility: [facility] Address: [address] [place] [address] Performed By: #### 5 8410-2 ####[facility] LABIA [id number] [place] [address] [place] MCH (RBC) [Entitic mass] 29.5 pg Normal 26.0-34.0 [facility] Comment on above: Order Comment: Speci men Type: BLOOD SPECIMENOrdering Facility: [facility] Address: [address] [place] [address] Performed By: #### 5 8410-2 ####[facility] [id number] [place] [address] [place] MCHC (RBC) [Mass/Vol] 31.9 g/dL Normal 30.5-36.0 [facility] Comment on above: Order Comment: Speci men Type: BLOOD SPECIMENOrdering Facility: [facility] Address: [address] [place] [address] Performed By: #### 5 8410-2 ####[facility] [id number] [place] [address] [place] MCV (RBC) [Entitic vol] 92.5 fL Normal 80.0-100.0 [facility] Comment on above: Order Comment: Speci men Type: BLOOD SPECIMENOrdering Facility: [facility] Address: [address] [place] [address] Performed By: #### 5 8410-2 ####[facility] LABIA [id number] [place] [address] [place] Nucleated RBC (Bld) [#/Vol] 10*3/uL Normal <0.01 [facility] Comment on above: Order Comment: Speci men Type: BLOOD SPECIMENOrdering Facility: [facility] Address: [address] [place] [address] Performed By: #### 5 8410-2 ####[facility] LABCLIA [id number] [place] [address] [place] Platelet mean volume (Bld) [Entitic vol] 10.6 fL Normal 9.0-12.7 [facility] Comment on above: Order Comment: Speci men Type: BLOOD SPECIMENOrdering Facility: [facility] Address: [address] [place] [address] Performed By: #### 5 8410-2 ####[facility] LABIA [id number] [place] [address] [place] Platelets (Bld) [#/Vol] 231 10*3/uL Normal 150-400 [facility] Comment on above: Order Comment: Speci men Type: BLOOD SPECIMENOrdering Facility: [facility] Address: [address] [place] [address] Performed By: #### 5 8410-2 ####[facility] LABIA [id number] [place] [address] [place] RBC (Bld) [#/Vol] 2.54 10*6/uL Low 4.20-6.00 [facility] Comment on above: Order Comment: Speci men Type: BLOOD SPECIMENOrdering Facility: [facility] Address: [address] [place] [address] Performed By: #### 5 8410-2 ####[facility] LABIA [id number] [place] [address] [place] WBC (Bld) [#/Vol] 8.37 10*3/uL Normal 3.70-11.00 [facility] Comment on above: Order Comment: Speci men Type: BLOOD SPECIMENOrdering Facility: [facility] Address: [address] [place] [id number] Performed By: #### 5 8410-2 ####[facility] LABCLIA [id number] [address] [address] [place] CONSULTon 11-03-2024 CONSULT Normal [facility] Comprehensive metabolic 2000 panelon 11-03-2024 Albumin [Mass/Vol] 3.8 g/dL Low 3.9-4.9 [facility] Comment on above: Order Comment: Speci men Type: BLOOD SPECIMENOrdering Facility: [facility] Address: [address] [place] [address] Performed By: #### 1 9123-9, 20388-7 ####[facility] LABCLIA [id number] [place] [address] [place] ALP [Catalytic activity/Vol] 56 U/L Normal 38-113 [facility] Comment on above: Order Comment: Speci men Type: BLOOD SPECIMENOrdering Facility: [facility] Address: [address] [place] [address] Performed By: #### 1 9123-9, 37415-8 ####[facility] LABIA [id number] [place] [address] [place] ALT [Catalytic activity/Vol] 16 U/L Normal 10-54 [facility] Comment on above: Order Comment: Speci men Type: BLOOD SPECIMENOrdering Facility: [facility] Address: [address] [place] [address] Performed By: #### 1 9123-9, 19386-2 ####[facility] LABCLIA [id number] [place] [address] [place] Anion gap [Moles/Vol] 10 mmol/L Normal 8-15 [facility] Comment on above: Order Comment: Speci men Type: BLOOD SPECIMENOrdering Facility: [facility] Address: [address] [place], [place] [address] Performed By: #### 1 23-9, ####[facility] LABCLIA [id number] [place] [address] [place] AST [Catalytic activity/Vol] 12 U/L Low 14-40 [facility] Comment on above: Order Comment: Speci men Type: BLOOD SPECIMENOrdering Facility: [facility] Address: [address] [place] [address] Performed By: #### 1 23-9, ####[facility] LABCLIA [id number] [place] [address] [place] Bilirubin [Mass/Vol] 0.3 mg/dL Normal 0.2-1.3 [facility] Comment on above: Order Comment: Speci men Type: BLOOD SPECIMENOrdering Facility: [facility] Address: [address] [place] [address] Performed By: #### 1 239, ####[facility] LABIA [id number] [place] [address] [place] Calcium [Mass/Vol] 9.2 mg/dL Normal 8.5-10.2 [facility] Comment on above: Order Comment: Speci men Type: BLOOD SPECIMENOrdering Facility: [facility] Address: [address] [place] [address] Performed By: #### 1 239, ####[facility] LABCLIA [id number] [place] [address] [place] Chloride [Moles/Vol] 101 mmol/L Normal 98-107 [facility] Comment on above: Order Comment: Speci men Type: BLOOD SPECIMENOrdering Facility: [facility] Address: [address] [place] [address] Performed By: #### 1 9123-9, ####[facility] LABIA [id number] [place] [address] [place] CO2 [Moles/Vol] 25 mmol/L Normal 22-30 [facility] Comment on above: Order Comment: Speci men Type: BLOOD SPECIMENOrdering Facility: [facility] Address: [address] [place] [address] Performed By: #### 1 9123-9, ####[facility] LABCLIA [id number] [place] [address] [place] Creatinine [Mass/Vol] 1.65 mg/dL High 0.73-1.22 [facility] Comment on above: Order Comment: Speci men Type: BLOOD SPECIMENOrdering Facility: [facility] Address: [address] [place] [address] Performed By: #### 1 23-9, ####[facility] LABCLIA [id number] [place] [address] [place] Creatinine and Glomerular filtration rate.predicted panel (S/P/Bld) 44 mL/min/1.73m??? Low >=60 [facility] Comment on above: Order Comment: Speci alex Type: BLOOD SPECIMENOrdering Facility: [facility] Address: [address] [place] [address] Result Comment: Mary Kay mated Glomerular Filtration [...] actual GFR. Performed By: #### 1 23-9, ####[facility] LABCLIA [id number] [place] [address] [place] Glucose [Mass/Vol] 145 mg/dL High 74-99 [facility] Comment on above: Order Comment: Speci men Type: BLOOD SPECIMENOrdering Facility: [facility] Address: [address] [place] [address] Result Comment: The [place] Diabetes Association (ADA) provides guidance for cutoff [...] Standards of Medical Care in Diabetes 2016, [place] Diabetes Association. Diabetes Care. 2016.39(Suppl 1). Performed By: #### 1 9123-9, ####[facility] LABCLIA [id number] [place] [address] [place] Potassium [Moles/Vol] 4.6 mmol/L Normal 3.7-5.1 [facility] Comment on above: Order Comment: Speci men Type: BLOOD SPECIMENOrdering Facility: [facility] Address: [address] [place] [address] Performed By: #### 1 9123-9, ####[facility] LABIA [id number] [place] [address] [place] Protein [Mass/Vol] 6.9 g/dL Normal 6.3-8.0 [facility] Comment on above: Order Comment: Speci men Type: BLOOD SPECIMENOrdering Facility: [facility] Address: [address] [place] [address] Performed By: #### 1 9123-9, ####[facility] LABCLIA [id number] [place] [address] [place] Sodium [Moles/Vol] 136 mmol/L Normal 136-144 [facility] Comment on above: Order Comment: Speci men Type: BLOOD SPECIMENOrdering Facility: [facility] Address: [address] [place] [address] Performed By: #### 1 9123-9, 00059-2 ####[facility] LABCLIA [id number] [place] [address] [place] Urea nitrogen [Mass/Vol] 22 mg/dL Normal 9-24 [facility] Comment on above: Order Comment: Speci men Type: BLOOD SPECIMENOrdering Facility: [facility] Address: [address] [place] [address] Performed By: #### 1 9123-9, 85217-5 ####[facility] LABIA [id number] [place] [address] [place] Magnesium SerPl-mCncon 11-03 Magnesium [Mass/Vol] 1.9 mg/dL Normal 1.7-2.3 [facility] Comment on above: Order Comment: Speci men Type: BLOOD SPECIMENOrdering Facility: [facility] Address: [address] [place] [address] Performed By: #### 1 9123-9, 51053-5 ####[facility] LABIA [id number] [place] [address] [place] CBC panel Auto (Bld)on 11-02 Erythrocyte distribution width (RBC) [Ratio] 13.0 % Normal 11.5-15.0 [facility] Comment on above: Order Comment: Speci men Type: BLOOD SPECIMENOrdering Facility: [facility] Address: [address] [place] [address] Performed By: #### 5 8410-2 ####[facility] LABIA [id number] [place] [address] [place] Hematocrit (Bld) [Volume fraction] 23.8 % Low 39.0-51.0 [facility] Comment on above: Order Comment: Speci men Type: BLOOD SPECIMENOrdering Facility: [facility] Address: [address] [place] [address] Performed By: #### 5 8410-2 ####[facility] LABIA [id number] [place] [address] [place] Hemoglobin (Bld) [Mass/Vol] 7.5 g/dL Low 13.0-17.0 [facility] Comment on above: Order Comment: Speci men Type: BLOOD SPECIMENOrdering Facility: [facility] Address: [address] [place] [address] Performed By: #### 5 8410-2 ####[facility] LABIA [id number] [place] [address] [place] MCH (RBC) [Entitic mass] 29.2 pg Normal 26.0-34.0 [facility] Comment on above: Order Comment: Speci men Type: BLOOD SPECIMENOrdering Facility: [facility] Address: [address] [place] [address] Performed By: #### 5 8410-2 ####[facility] LABIA [id number] [place] [address] [place] MCHC (RBC) [Mass/Vol] 31.5 g/dL Normal 30.5-36.0 [facility] Comment on above: Order Comment: Speci men Type: BLOOD SPECIMENOrdering Facility: [facility] Address: [address] [place] [address] Performed By: #### 5 8410-2 ####[facility] LABIA [id number] [place] [address] [place] MCV (RBC) [Entitic vol] 92.6 fL Normal 80.0-100.0 [facility] Comment on above: Order Comment: Speci men Type: BLOOD SPECIMENOrdering Facility: [facility] Address: [address] [place] [address] Performed By: #### 5 8410-2 ####[facility] LABIA [id number] [place] [address] [place] Nucleated RBC (Bld) [#/Vol] 10*3/uL Normal <0.01 [facility] [facility] Comment on above: Order Comment: Speci men Type: BLOOD SPECIMENOrdering Facility: [facility] Address: [address] [place] [address] Performed By: #### 5 8410-2 ####[facility] LABCLIA [id number] [place] [address] [place] Platelet mean volume (Bld) [Entitic vol] 10.6 fL Normal 9.0-12.7 [facility] Comment on above: Order Comment: Speci men Type: BLOOD SPECIMENOrdering Facility: [facility] Address: [address] [place] [address] Performed By: #### 5 8410-2 ####[facility] LABCLIA [id number] [place] [address] [place] Platelets (Bld) [#/Vol] 211 10*3/uL Normal 150-400 [facility] Comment on above: Order Comment: Speci men Type: BLOOD SPECIMENOrdering Facility: [facility] Address: [address] [place] [address] Performed By: #### 5 8410-2 ####[facility] LABCLIA [id number] [place] [address] [place] RBC (Bld) [#/Vol] 2.57 10*6/uL Low 4.20-6.00 [facility] Comment on above: Order Comment: Speci men Type: BLOOD SPECIMENOrdering Facility: [facility] Address: [address] [place] [address] Performed By: #### 5 8410-2 ####[facility] LABCLIA [id number] [place] [address] [place] WBC (Bld) [#/Vol] 10.06 10*3/uL Normal 3.70-11.00 [facility] Comment on above: Order Comment: Speci men Type: BLOOD SPECIMENOrdering Facility: [facility] Address: [address] [id number] Performed By: #### 5 8410-2 ####[facility] LABCLIA [id number] [address] [address] [place] Comprehensive metabolic 2000 panelon 11-02-2024 Albumin [Mass/Vol] 4.0 g/dL Normal 3.9-4.9 [facility] Comment on above: Order Comment: Speci men Type: BLOOD SPECIMENOrdering Facility: [facility] Address: [address] [place], [place] [address] Performed By: #### 2 4323-8, ####[facility] LABCLIA [id number] [place] [address] [place] ALP [Catalytic activity/Vol] 58 U/L Normal 38-113 [facility] Comment on above: Order Comment: Speci men Type: BLOOD SPECIMENOrdering Facility: [facility] Address: [address] [place], [place] [address] Performed By: #### 2 4323-8, ####[facility] LABCLIA [id number] [address] [place] ALT [Catalytic activity/Vol] 17 U/L Normal 10-54 [facility] Comment on above: Order Comment: Speci men Type: BLOOD SPECIMENOrdering Facility: [facility] Address: [address] [place] [address] Performed By: #### 2 4323-8, ####[facility] LABCLIA [id number] [place] [id number] [place] Anion gap [Moles/Vol] 14 mmol/L Normal 8-15 [facility] Comment on above: Order Comment: Speci men Type: BLOOD SPECIMENOrdering Facility: [facility] Address: [address] [place], [place] [address] Performed By: #### 2 4323-8, ####[facility] LABCLIA [id number] [place] [id number] [place] AST [Catalytic activity/Vol] 13 U/L Low 14-40 [facility] Comment on above: Order Comment: Speci men Type: BLOOD SPECIMENOrdering Facility: [facility] Address: [address] [place] [address] Performed By: #### 2 432-8, ####[facility] LABCLIA [id number] [place] [address] [place] Bilirubin [Mass/Vol] 0.3 mg/dL Normal 0.2-1.3 [facility] Comment on above: Order Comment: Speci men Type: BLOOD SPECIMENOrdering Facility: [facility] Address: [address] [place] [address] Performed By: #### 2 432-8, ####[facility] LABCLIA [id number] [place] [address] [place] Calcium [Mass/Vol] 9.6 mg/dL Normal 8.5-10.2 [facility] Comment on above: Order Comment: Speci men Type: BLOOD SPECIMENOrdering Facility: [facility] Address: [address] [place] [address] Performed By: #### 2 432-8, ####[facility] LABCLIA [id number] [place] [id number] [place] Chloride [Moles/Vol] 103 mmol/L Normal 98-107 [facility] Comment on above: Order Comment: Speci men Type: BLOOD SPECIMENOrdering Facility: [facility] Address: [address] [place], [place] [address] Performed By: #### 2 4323-8, ####[facility] LABCLIA [id number] [place] [id number] [place] CO2 [Moles/Vol] 20 mmol/L Low 22-30 [facility] Comment on above: Order Comment: Speci men Type: BLOOD SPECIMENOrdering Facility: [facility] Address: [address] [place] [address] Performed By: #### 2 4323-8, ####[facility] LABCLIA [id number] [place] [address] [place] Creatinine [Mass/Vol] 1.80 mg/dL High 0.73-1.22 [facility] Comment on above: Order Comment: Speci men Type: BLOOD SPECIMENOrdering Facility: [facility] Address: [address] [place] [address] Performed By: #### 2 43238, ####[facility] LABCLIA [id number] [place] [address] [place] Creatinine and Glomerular filtration rate.predicted panel (S/P/Bld) 39 mL/min/1.73m??? Low >=60 [facility] Comment on above: Order Comment: Speci men Type: BLOOD SPECIMENOrdering Facility: [facility] Address: [address] [place] [address] Result Comment: Mary Kay mated Glomerular Filtration [...] actual GFR. Performed By: #### 2 4323-8, ####[facility] LABCLIA [id number] [place] [address] [place] Glucose [Mass/Vol] 132 mg/dL High 74-99 [facility] Comment on above: Order Comment: Speci men Type: BLOOD SPECIMENOrdering Facility: [facility] Address: [address] [phone] Result Comment: [place] Diabetes Association (ADA) provides guidance for cutoff [...] Standards of Medical Care in Diabetes 2016, [place] [employer] Association. Diabetes Care. 2016.39(Suppl 1). Performed By: #### 2 432-8, ####[facility] LABIA [id number] [place] [address] [place] Potassium [Moles/Vol] 4.5 mmol/L Normal 3.7-5.1 [facility] Comment on above: Order Comment: Speci men Type: BLOOD SPECIMENOrdering Facility: [facility] Address: [address] [address] Performed By: #### 2 4323-04, ####[facility] LABIA [id number] [place] [address] [place] Protein [Mass/Vol] 7.0 g/dL Normal 6.3-8.0 [facility] Comment on above: Order Comment: Speci men Type: BLOOD SPECIMENOrdering Facility: [facility] Address: [address] [place] [address] Performed By: #### 2 3, ####[facility] LABCLIA [id number] [place] [address] [place] Sodium [Moles/Vol] 137 mmol/L Normal 136-144 [facility] Comment on above: Order Comment: Speci men Type: BLOOD SPECIMENOrdering Facility: [facility] Address: [address] [place] [address] Performed By: #### 2 4323-8, ####[facility] LABCLIA [id number] [place] [address] [place] Urea nitrogen [Mass/Vol] 24 mg/dL Normal 9-24 [facility] Comment on above: Order Comment: Speci men Type: BLOOD SPECIMENOrdering Facility: [facility] Address: [address] [place] [address] Performed By: #### 2 4323-8, ####[facility] LABCLIA [id number] [place] [address] [place] Magnesium SerPl-mCncon 11-02 Magnesium [Mass/Vol] 1.9 mg/dL Normal 1.7-2.3 [facility] Comment on above: Order Comment: Speci men Type: BLOOD SPECIMENOrdering Facility: [facility] Address: [address] [place] [address] Performed By: #### 2 4323-8, ####[facility] LABCLIA [id number] [place] [address] [place] NUTRITIONon 11-02-2024 NUTRITION Normal [facility] US BRACHIAL ARTERY UNL VAS L ABon 11-02-2024 US BRACHIAL ARTERY UNL VAS LAB Normal [facility] CASE MANAGEMon 11-01-2024 CASE MANAGEM Normal [facility] CBC panel Auto (Bld)on 11-01 Erythrocyte distribution width (RBC) [Ratio] 13.1 % Normal 11.5-15.0 [facility] Comment on above: Order Comment: Speci men Type: BLOOD SPECIMENOrdering Facility: [facility] Address: [address] [place] [address] Performed By: #### 5 8410-2 ####[facility] LABCLIA [id number] [place] [address] [place] Hematocrit (Bld) [Volume fraction] 25.1 % Low 39.0-51.0 [facility] Comment on above: Order Comment: Speci men Type: BLOOD SPECIMENOrdering Facility: [facility] Address: [address] [place] [address] Performed By: #### 5 8410-2 ####[facility] LABIA [id number] [place] [address] [place] Hemoglobin (Bld) [Mass/Vol] 8.0 g/dL Low 13.0-17.0 [facility] Comment on above: Order Comment: Speci men Type: BLOOD SPECIMENOrdering Facility: [facility] Address: [address] [place] [address] Performed By: #### 5 8410-2 ####[facility] LABIA [id number] [place] [address] [place] MCH (RBC) [Entitic mass] 30.1 pg Normal 26.0-34.0 [facility] Comment on above: Order Comment: Speci men Type: BLOOD SPECIMENOrdering Facility: [facility] Address: [address] [place] [address] Performed By: #### 5 8410-2 ####[facility] [id number] [place] [address] [place] MCHC (RBC) [Mass/Vol] 31.9 g/dL Normal 30.5-36.0 [facility] Comment on above: Order Comment: Speci men Type: BLOOD SPECIMENOrdering Facility: [facility] Address: [address] [place] [address] Performed By: #### 5 8410-2 ####[facility] LABIA [id number] [place] [address] [place] MCV (RBC) [Entitic vol] 94.4 fL Normal 80.0-100.0 [facility] Comment on above: Order Comment: Speci men Type: BLOOD SPECIMENOrdering Facility: [facility] Address: [address] [place] [address] Performed By: #### 5 8410-2 ####[facility] LABCLIA [id number] [place] [address] [place] Nucleated RBC (Bld) [#/Vol] 10*3/uL Normal <0.01 [facility] Comment on above: Order Comment: Speci men Type: BLOOD SPECIMENOrdering Facility: [facility] Address: [address] [place] [address] Performed By: #### 5 8410-2 ####[facility] LABCLIA [id number] [place] [address] [place] Platelet mean volume (Bld) [Entitic vol] 11.0 fL Normal 9.0-12.7 [facility] Comment on above: Order Comment: Speci men Type: BLOOD SPECIMENOrdering Facility: [facility] Address: [address] [place] [address] Performed By: #### 5 8410-2 ####[facility] LABCLIA [id number] [place] [address] [place] Platelets (Bld) [#/Vol] 182 10*3/uL Normal 150-400 [facility] Comment on above: Order Comment: Speci men Type: BLOOD SPECIMENOrdering Facility: [facility] Address: [address] [place] [address] Performed By: #### 5 8410-2 ####[facility] LABCLIA [id number] [place] [address] [place] RBC (Bld) [#/Vol] 2.66 10*6/uL Low 4.20-6.00 [facility] Comment on above: Order Comment: Speci men Type: BLOOD SPECIMENOrdering Facility: [facility] Address: [address] [place] [address] Performed By: #### 5 8410-2 ####[facility] LABCLIA [id number] [place] [address] [place] WBC (Bld) [#/Vol] 9.34 10*3/uL Normal 3.70-11.00 [facility] Comment on above: Order Comment: Speci men Type: BLOOD SPECIMENOrdering Facility: [facility] Address: [address] [place] [address] Performed By: #### 5 8410-2 ####[facility] LABCLIA [id number] [place] [address] [place] CONSULT PROGon 11-01-2024 CONSULT PROG Normal [facility] metabolic 2000 panelon 11-01-2024 Albumin [Mass/Vol] 3.8 g/dL Low 3.9-4.9 [facility] Comment on above: Order Comment: Speci men Type: BLOOD SPECIMENOrdering Facility: [facility] Address: [address] [place] [address] Performed By: #### 2 4323-8, ####[facility] LABIA [id number] [place] [address] [place] ALP [Catalytic activity/Vol] 53 U/L Normal 38-113 [facility] Comment on above: Order Comment: Speci men Type: BLOOD SPECIMENOrdering Facility: [facility] Address: [address] [place] [address] Performed By: #### 2 4323-8, ####[facility] LABCLIA [id number] [place] [id number] [place] ALT [Catalytic activity/Vol] 20 U/L Normal 10-54 [facility] Comment on above: Order Comment: Speci men Type: BLOOD SPECIMENOrdering Facility: [facility] Address: [address] [place] [address] Performed By: #### 2 4323-8, ####[facility] LABCLIA [id number] [place] [address] [place] Anion gap [Moles/Vol] 10 mmol/L Normal 8-15 [facility] Comment on above: Order Comment: Speci men Type: BLOOD SPECIMENOrdering Facility: [facility] Address: [address] [place] [address] Performed By: #### 2 4323-8, ####[facility] LABCLIA [id number] [place] [address] [place] AST [Catalytic activity/Vol] 16 U/L Normal 14-40 [facility] Comment on above: Order Comment: Speci men Type: BLOOD SPECIMENOrdering Facility: [facility] Address: [address] [place] [address] Performed By: #### 2 4323-8, ####[facility] LABCLIA [id number] [place] [address] [place] Bilirubin [Mass/Vol] 0.2 mg/dL Normal 0.2-1.3 [facility] Comment on above: Order Comment: Speci men Type: BLOOD SPECIMENOrdering Facility: [facility] Address: [address] [place] [address] Performed By: #### 2 4323-8, ####[facility] LABCLIA [id number] [place] [address] [place] Calcium [Mass/Vol] 9.2 mg/dL Normal 8.5-10.2 [facility] Comment on above: Order Comment: Speci men Type: BLOOD SPECIMENOrdering Facility: [facility] Address: [address] [place] [address] Performed By: #### 2 4323-8, ####[facility] LABCLIA [id number] [place] [address] [place] Chloride [Moles/Vol] 107 mmol/L Normal 98-107 [facility] Comment on above: Order Comment: Speci men Type: BLOOD SPECIMENOrdering Facility: [facility] Address: [address] [place] [address] Performed By: #### 2 4323-8, ####[facility] LABCLIA [id number] [place] [id number] [place] CO2 [Moles/Vol] 22 mmol/L Normal 22-30 [facility] Comment on above: Order Comment: Speci men Type: BLOOD SPECIMENOrdering Facility: [facility] Address: [address] [place] [address] Performed By: #### 2 4323-8, ####[facility] LABCLIA [id number] [place] [address] [place] Creatinine [Mass/Vol] 1.86 mg/dL High 0.73-1.22 [facility] Comment on above: Order Comment: Speci men Type: BLOOD SPECIMENOrdering Facility: [facility] Address: [address] [place] [address] Performed By: #### 2 4323-8, ####[facility] LABCLIA [id number] [address] [place] Creatinine and Glomerular filtration rate.predicted panel (S/P/Bld) 38 mL/min/1.73m??? Low >=60 [facility] Comment on above: Order Comment: Speci men Type: BLOOD SPECIMENOrdering Facility: [facility] Address: [address] [place] [address] Result Comment: Mary Kay mated Glomerular Filtration [...] actual GFR. Performed By: #### 2 4323-8, ####[facility] LABCLIA [id number] [address] [address] [place] Glucose [Mass/Vol] 144 mg/dL High 74-99 [facility] Comment on above: Order Comment: Speci men Type: BLOOD SPECIMENOrdering Facility: [facility] Address: [address] [place] [address] Result Comment: The [place] Diabetes Association (ADA) provides guidance for cutoff [...] Standards of Medical Care in Diabetes 2016, [place] Diabetes Association. Diabetes Care. 2016.39(Suppl 1). Performed By: #### 2 4323-8, ####[facility] LABIA [id number] [place] [address] [place] Potassium [Moles/Vol] 5.2 mmol/L High 3.7-5.1 [facility] Comment on above: Order Comment: Speci men Type: BLOOD SPECIMENOrdering Facility: [facility] Address: [address] [place], [place] [address] Performed By: #### 2 4323-8, ####[facility] LABIA [id number] [place] [id number] [place] Protein [Mass/Vol] 6.7 g/dL Normal 6.3-8.0 [facility] Comment on above: Order Comment: Speci men Type: BLOOD SPECIMENOrdering Facility: [facility] Address: [address] [place], [place] [address] Performed By: #### 2 4323-8, ####[facility] LABCLIA [id number] [place] [address] [place] Sodium [Moles/Vol] 139 mmol/L Normal 136-144 [facility] Comment on above: Order Comment: Speci men Type: BLOOD SPECIMENOrdering Facility: [facility] Address: [address] [place] [address] Performed By: #### 2 4323-8, 57850-0 ####[facility] LABCLIA [id number] [place] [address] [place] Urea nitrogen [Mass/Vol] 23 mg/dL Normal 9-24 [facility] Comment on above: Order Comment: Speci men Type: BLOOD SPECIMENOrdering Facility: [facility] Address: [address] [place] [address] Performed By: #### 2 4323-8, 18459-0 ####[facility] LABCLIA [id number] [place] [address] [place] Magnesium SerPl-mCncon 11-01 Magnesium [Mass/Vol] 1.9 mg/dL Normal 1.7-2.3 [facility] Comment on above: Order Comment: Speci men Type: BLOOD SPECIMENOrdering Facility: [facility] Address: [address] [place] [address] Performed By: #### 2 4323-8, 30284-6 ####[facility] LABCLIA [id number] [place] [address] [place] CBC W Auto Differential pane l (Bld)on 10-31-2024 Basophils (Bld) [#/Vol] 0.05 10*3/uL Normal <0.11 [facility] Comment on above: Order Comment: Speci men Type: BLOOD SPECIMENOrdering Facility: [facility] Address: [address] [place] [address] Performed By: #### 5 7021-8 ####[facility] LABCLIA [id number] [place] [address] [place] Basophils/100 WBC (Bld) 0.5 % Normal [facility] Comment on above: Order Comment: Speci men Type: BLOOD SPECIMENOrdering Facility: [facility] Address: [address] [place] [address] Performed By: #### 5 7021-8 ####[facility] LABCLIA [id number] [place] [address] [place] Differential cell count method Nom (Bld) Auto Normal [facility] Comment on above: Order Comment: Speci men Type: BLOOD SPECIMENOrdering Facility: [facility] Address: [address] [place] [address] Performed By: #### 5 7021-8 ####[facility] LABCLIA [id number] [place] [address] [place] Eosinophils (Bld) [#/Vol] 0.24 10*3/uL Normal <0.46 [facility] Comment on above: Order Comment: Speci men Type: BLOOD SPECIMENOrdering Facility: [facility] Address: [address] [place] [address] Performed By: #### 5 7021-8 ####[facility] LABCLIA [id number] [place] [address] [place] Eosinophils/100 WBC (Bld) 2.2 % Normal [facility] Comment on above: Order Comment: Speci men Type: BLOOD SPECIMENOrdering Facility: [facility] Address: [address] [place] [address] Performed By: #### 5 7021-8 ####[facility] LABCLIA [id number] [place] [address] [place] Erythrocyte distribution width (RBC) [Ratio] 13.1 % Normal 11.5-15.0 [facility] Comment on above: Order Comment: Speci men Type: BLOOD SPECIMENOrdering Facility: [facility] Address: [address] [place] [address] Performed By: #### 5 7021-8 ####[facility] LABCLIA [id number] [place] [address] [place] Hematocrit (Bld) [Volume fraction] 23.7 % Low 39.0-51.0 [facility] Comment on above: Order Comment: Speci men Type: BLOOD SPECIMENOrdering Facility: [facility] Address: [address] [place] [address] Performed By: #### 5 7021-8 ####[facility] LABIA [id number] [place] [address] [place] Hemoglobin (Bld) [Mass/Vol] 7.5 g/dL Low 13.0-17.0 [facility] Comment on above: Order Comment: Speci men Type: BLOOD SPECIMENOrdering Facility: [facility] Address: [address] [place] [address] Performed By: #### 5 7021-8 ####[facility] LABIA [id number] [place] [address] [place] Immature granulocytes (Bld) [#/Vol] 0.05 10*3/uL Normal <0.10 [facility] Comment on above: Order Comment: Speci men Type: BLOOD SPECIMENOrdering Facility: [facility] Address: [address] [place] [address] Performed By: #### 5 7021-8 ####[facility] LABCLIA [id number] [place] [address] [place] Immature granulocytes/100 WBC (Bld) 0.5 % Normal [facility] Comment on above: Order Comment: Speci men Type: BLOOD SPECIMENOrdering Facility: [facility] Address: [address] [place] [address] Performed By: #### 5 7021-8 ####[facility] LABCLIA [id number] [place] [address] [place] Lymphocytes (Bld) [#/Vol] 0.78 10*3/uL Low 1.00-4.00 [facility] Comment on above: Order Comment: Speci men Type: BLOOD SPECIMENOrdering Facility: [facility] Address: [address] [place] [address] Performed By: #### 5 7021-8 ####[facility] LABCLIA [id number] [place] [address] [place] Lymphocytes/100 WBC (Bld) 7.1 % Normal [facility] Comment on above: Order Comment: Speci men Type: BLOOD SPECIMENOrdering Facility: [facility] Address: [address] [place] [address] Performed By: #### 5 7021-8 ####[facility] LABCLIA [id number] [place] [address] [place] MCH (RBC) [Entitic mass] 29.6 pg Normal 26.0-34.0 [facility] Comment on above: Order Comment: Speci men Type: BLOOD SPECIMENOrdering Facility: [facility] Address: [address] [place] [address] Performed By: #### 5 7021-8 ####[facility] LABCLIA [id number] [place] [address] [place] MCHC (RBC) [Mass/Vol] 31.6 g/dL Normal 30.5-36.0 [facility] Comment on above: Order Comment: Speci men Type: BLOOD SPECIMENOrdering Facility: [facility] Address: [address] [place] [address] Performed By: #### 5 7021-8 ####[facility] LABCLIA [id number] [place] [address] [place] MCV (RBC) [Entitic vol] 93.7 fL Normal 80.0-100.0 [facility] Comment on above: Order Comment: Speci men Type: BLOOD SPECIMENOrdering Facility: [facility] Address: [address] [place] [address] Performed By: #### 5 7021-8 ####[facility] LABCLIA [id number] [place] [address] [place] Monocytes (Bld) [#/Vol] 1.03 10*3/uL High <0.87 [facility] Comment on above: Order Comment: Speci men Type: BLOOD SPECIMENOrdering Facility: [facility] Address: [address] [place] [address] Performed By: #### 5 7021-8 ####[facility] LABCLIA [id number] [place] [address] [place] Monocytes/100 WBC (Bld) 9.4 % Normal [facility] Comment on above: Order Comment: Speci men Type: BLOOD SPECIMENOrdering Facility: [facility] Address: [address] [place] [address] Performed By: #### 5 7021-8 ####[facility] LABCLIA [id number] [place] [address] [place] Neutrophils (Bld) [#/Vol] 8.81 10*3/uL High 1.45-7.50 [facility] Comment on above: Order Comment: Speci men Type: BLOOD SPECIMENOrdering Facility: [facility] Address: [address] [place] [address] Performed By: #### 5 7021-8 ####[facility] LABCLIA [id number] [place] [address] [place] Neutrophils/100 WBC (Bld) 80.3 % Normal [facility] Comment on above: Order Comment: Speci men Type: BLOOD SPECIMENOrdering Facility: [facility] Address: [address] [place] [address] Performed By: #### 5 7021-8 ####[facility] LABCLIA [id number] [place] [address] [place] Nucleated RBC (Bld) [#/Vol] 10*3/uL Normal <0.01 [facility] Comment on above: Order Comment: Speci men Type: BLOOD SPECIMENOrdering Facility: [facility] Address: [address] [place] [address] Performed By: #### 5 7021-8 ####[facility] LABCLIA [id number] [place] [address] [place] Nucleated RBC/100 WBC (Bld) [Ratio] 0.0 /100 WBC Normal [facility] Comment on above: Order Comment: Speci men Type: BLOOD SPECIMENOrdering Facility: [facility] Address: [address] [place] [address] Performed By: #### 5 7021-8 ####[facility] LABIA [id number] [place] [address] [place] Platelet mean volume (Bld) [Entitic vol] 10.5 fL Normal 9.0-12.7 [facility] Comment on above: Order Comment: Speci men Type: BLOOD SPECIMENOrdering Facility: [facility] Address: [address] [place] [address] Performed By: #### 5 7021-8 ####[facility] LABIA [id number] [place] [address] [place] Platelets (Bld) [#/Vol] 196 10*3/uL Normal 150-400 [facility] Comment on above: Order Comment: Speci men Type: BLOOD SPECIMENOrdering Facility: [facility] Address: [address] [place] [address] Performed By: #### 5 7021-8 ####[facility] LABCLIA [id number] [place] [address] [place] RBC (Bld) [#/Vol] 2.53 10*6/uL Low 4.20-6.00 [facility] Comment on above: Order Comment: Speci men Type: BLOOD SPECIMENOrdering Facility: [facility] Address: [address] [place] [address] Performed By: #### 5 7021-8 ####[facility] LABCLIA [id number] [place] [address] [place] WBC (Bld) [#/Vol] 10.96 10*3/uL Normal 3.70-11.00 [facility] Comment on above: Order Comment: Speci men Type: BLOOD SPECIMENOrdering Facility: [facility] Address: [address] [place] [address] Performed By: #### 5 7021-8 ####[facility] LABCLIA [id number] [place] [address] [place] CBC panel Auto (Bld)on 10-31 Erythrocyte distribution width (RBC) [Ratio] 13.0 % Normal 11.5-15.0 [facility] Comment on above: Order Comment: Speci men Type: BLOOD SPECIMENOrdering Facility: [facility] Address: [address] [place] [address] Performed By: #### 5 8410-2 ####[facility] LABCLIA [id number] [place] [address] [place] Hematocrit (Bld) [Volume fraction] 24.4 % Low 39.0-51.0 [facility] Comment on above: Order Comment: Speci men Type: BLOOD SPECIMENOrdering Facility: [facility] Address: [address] [place] [address] Performed By: #### 5 8410-2 ####[facility] LABCLIA [id number] [place] [address] [place] Hemoglobin (Bld) [Mass/Vol] 7.9 g/dL Low 13.0-17.0 [facility] Comment on above: Order Comment: Speci men Type: BLOOD SPECIMENOrdering Facility: [facility] Address: [address] [place] [address] Performed By: #### 5 8410-2 ####[facility] LABCLIA [id number] [place] [address] [place] [facility] MCH (RBC) [Entitic mass] 29.7 pg Normal 26.0-34.0 [facility] Comment on above: Order Comment: Speci men Type: BLOOD SPECIMENOrdering Facility: [facility] Address: [address] [place] [address] Performed By: #### 5 8410-2 ####[facility] LABCLIA [id number] [place] [address] [place] MCHC (RBC) [Mass/Vol] 32.4 g/dL Normal 30.5-36.0 [facility] Comment on above: Order Comment: Speci men Type: BLOOD SPECIMENOrdering Facility: [facility] Address: [address] [place] [address] Performed By: #### 5 8410-2 ####[facility] LABIA [id number] [place] [address] [place] MCV (RBC) [Entitic vol] 91.7 fL Normal 80.0-100.0 [facility] Comment on above: Order Comment: Speci men Type: BLOOD SPECIMENOrdering Facility: [facility] Address: [address] [place] [address] Performed By: #### 5 8410-2 ####[facility] LABCLIA [id number] [place] [address] [place] Nucleated RBC (Bld) [#/Vol] 10*3/uL Normal <0.01 [facility] Comment on above: Order Comment: Speci men Type: BLOOD SPECIMENOrdering Facility: [facility] Address: [address] [place] [address] Performed By: #### 5 8410-2 ####[facility] LABCLIA [id number] [place] [address] [place] Platelet mean volume (Bld) [Entitic vol] 10.4 fL Normal 9.0-12.7 [facility] Comment on above: Order Comment: Speci men Type: BLOOD SPECIMENOrdering Facility: [facility] Address: [address] [place] [address] Performed By: #### 5 8410-2 ####[facility] LABCLIA [id number] [place] [address] [place] Platelets (Bld) [#/Vol] 191 10*3/uL Normal 150-400 [facility] Comment on above: Order Comment: Speci men Type: BLOOD SPECIMENOrdering Facility: [facility] Address: [address] [place] [address] Performed By: #### 5 8410-2 ####[facility] LABCLIA [id number] [place] [address] [place] RBC (Bld) [#/Vol] 2.66 10*6/uL Low 4.20-6.00 [facility] Comment on above: Order Comment: Speci men Type: BLOOD SPECIMENOrdering Facility: [facility] Address: [address] [place] [address] Performed By: #### 5 8410-2 ####[facility] LABCLIA [id number] [place] [address] [place] WBC (Bld) [#/Vol] 9.92 10*3/uL Normal 3.70-11.00 [facility] Comment on above: Order Comment: Speci men Type: BLOOD SPECIMENOrdering Facility: [facility] Address: [address] [place] [address] Performed By: #### 5 8410-2 ####[facility] LABCLIA [id number] [place] [id number] [place] CONSULTon 10-31-2024 CONSULT Normal [facility] metabolic 2000 panelon 10-31-2024 Albumin [Mass/Vol] 3.7 g/dL Low 3.9-4.9 [facility] Comment on above: Order Comment: Speci men Type: BLOOD SPECIMENOrdering Facility: [facility] Address: [address] [place] [address] Performed By: #### 2 4323-8, ####[facility] LABCLIA [id number] [place] [address] [place] ALP [Catalytic activity/Vol] 44 U/L Normal 38-113 [facility] Comment on above: Order Comment: Speci men Type: BLOOD SPECIMENOrdering Facility: [facility] Address: [address] [place] [address] Performed By: #### 2 4323-8, ####[facility] LABCLIA [id number] [place] [address] [place] ALT [Catalytic activity/Vol] 14 U/L Normal 10-54 [facility] Comment on above: Order Comment: Speci men Type: BLOOD SPECIMENOrdering Facility: [facility] Address: [address] [place] [address] Performed By: #### 2 4323-8, ####[facility] LABCLIA [id number] [place] [address] [place] Anion gap [Moles/Vol] 8 mmol/L Normal 8-15 [facility] Comment on above: Order Comment: Speci men Type: BLOOD SPECIMENOrdering Facility: [facility] Address: [address] [place], [place] [address] Performed By: #### 2 4323-8, ####[facility] LABCLIA [id number] [place] [id number] [place] AST [Catalytic activity/Vol] 17 U/L Normal 14-40 [facility] Comment on above: Order Comment: Speci men Type: BLOOD SPECIMENOrdering Facility: [facility] Address: [address] [place] [id number] Performed By: #### 2 432-8, ####[facility] LABCLIA [id number] [address] [address] [place] Bilirubin [Mass/Vol] 0.2 mg/dL Normal 0.2-1.3 [facility] Comment on above: Order Comment: Speci men Type: BLOOD SPECIMENOrdering Facility: [facility] Address: [address] [place], [place] [address] Performed By: #### 2 4323-8, ####[facility] LABCLIA [id number] [place] [address] [place] Calcium [Mass/Vol] 8.9 mg/dL Normal 8.5-10.2 [facility] Comment on above: Order Comment: Speci men Type: BLOOD SPECIMENOrdering Facility: [facility] Address: [address] [place], [place] [address] Performed By: #### 2 4323-8, ####[facility] LABCLIA [id number] [place] [address] [place] Chloride [Moles/Vol] 105 mmol/L Normal 98-107 [facility] Comment on above: Order Comment: Speci men Type: BLOOD SPECIMENOrdering Facility: [facility] Address: [address] [place] [id number] Performed By: #### 2 4323-8, ####[facility] LABCLIA [id number] [place] [address] [place] CO2 [Moles/Vol] 21 mmol/L Low 22-30 [facility] Comment on above: Order Comment: Speci men Type: BLOOD SPECIMENOrdering Facility: [facility] Address: [address] [place], [place] [address] Performed By: #### 2 4328, ####[facility] LABIA [id number] [address] [address] [place] Creatinine [Mass/Vol] 1.71 mg/dL High 0.73-1.22 [facility] Comment on above: Order Comment: Jose Cruz johnson Type: BLOOD SPECIMENOrdering Facility: [facility] Address: [address] [place] [address] Performed By: #### 2 43211-25, ####[facility] LABIA [id number] [place] [address] [place] Creatinine and Glomerular filtration rate.predicted panel (S/P/Bld) 42 mL/min/1.73m??? Low >=60 [facility] Comment on above: Order Comment: [facility] Type: BLOOD SPECIMENOrdering Facility: [facility] Address: [address] [place] [address] Result Comment: Mary Kay mated Glomerular Filtration [...] actual GFR. Performed By: #### 2 4328, ####[facility] LABIA [id number] [place] [id number] [place] Glucose [Mass/Vol] 156 mg/dL High 74-99 [facility] Comment on above: Order Comment: Jose Cruz johnson Type: BLOOD SPECIMENOrdering Facility: [facility] Address: [address] [place] [address] Result Comment: [place] Diabetes Association (ADA) provides guidance for cutoff [...] Standards of Medical Care in Diabetes 2016, [place] Diabetes Association. Diabetes Care. 2016.39(Suppl 1). Performed By: #### 2 4328, ####[facility] LABCLIA [id number] [place] [address] [place] Potassium [Moles/Vol] 4.9 mmol/L Normal 3.7-5.1 [facility] Comment on above: Order Comment: Speci men Type: BLOOD SPECIMENOrdering Facility: [facility] Address: [address] [place] [address] Performed By: #### 2 4323-04, ####[facility] LABCLIA [id number] [place] [address] [place] Protein [Mass/Vol] 6.3 g/dL Normal 6.3-8.0 [facility] Comment on above: Order Comment: Speci men Type: BLOOD SPECIMENOrdering Facility: [facility] Address: [address] [place] [address] Performed By: #### 2 4323-04, ####[facility] LABCLIA [id number] [place] [address] [place] Sodium [Moles/Vol] 134 mmol/L Low 136-144 [facility] Comment on above: Order Comment: Speci men Type: BLOOD SPECIMENOrdering Facility: [facility] Address: [address] [place] [address] Performed By: #### 2 4323-04, ####[facility] LABCLIA [id number] [place] [id number] [place] Urea nitrogen [Mass/Vol] 19 mg/dL Normal 9-24 [facility] Comment on above: Order Comment: Speci men Type: BLOOD SPECIMENOrdering Facility: [facility] Address: [address] [place] [address] Performed By: #### 2 4323-8, ####[facility] LABCLIA [id number] [place] [address] [place] Magnesium SerPl-mCncon 10-31 Magnesium [Mass/Vol] 1.7 mg/dL Normal 1.7-2.3 [facility] Comment on above: Order Comment: Speci men Type: BLOOD SPECIMENOrdering Facility: [facility] Address: [address] [place] [address] Performed By: #### 2 4323-8, ####[facility] LABIA [id number] [place] [address] [place] PTT, ANTICOAGULANT THERAPYon 10-31-2024 aPTT Coag (PPP) [Time] 26.3 s Normal 23.0-32.4 [facility] Comment on above: Order Comment: Speci men Type: BLOOD SPECIMENOrdering Facility: [facility] Address: [address] [place] [address] Performed By: #### P TTAC ####[facility] LABIA [id number] [place] [address] [place] US BRACHIAL ARTERY UNL VAS L ABon 10-31-2024 US BRACHIAL ARTERY UNL VAS LAB Normal [facility] ALLIED HEALTHon 10-30-2024 ALLIED HEALTH Normal [facility] CARD CATH DIAGNOSTICon 10-30 CARD CATH DIAGNOSTIC Normal [facility] CARD CATH INTERVENTon 2024 CARD CATH INTERVENT Normal [facility] CASE MANAGEMon 10-30-2024 CASE MANAGEM Normal [facility] CBC panel Auto (Bld)on 10-30 Erythrocyte distribution width (RBC) [Ratio] 12.8 % Normal 11.5-15.0 [facility] Comment on above: Order Comment: Speci men Type: BLOOD SPECIMENOrdering Facility: [facility] Address: [address] [place] [address] Performed By: #### 5 8410-2 ####[facility] LABIA [id number] [place] [address] [place] Hematocrit (Bld) [Volume fraction] 30.0 % Low 39.0-51.0 [facility] Comment on above: Order Comment: Speci men Type: BLOOD SPECIMENOrdering Facility: [facility] Address: [address] [place] [address] Performed By: #### 5 8410-2 ####[facility] LABIA [id number] [place] [address] [place] Hemoglobin (Bld) [Mass/Vol] 9.5 g/dL Low 13.0-17.0 [facility] Comment on above: Order Comment: Speci men Type: BLOOD SPECIMENOrdering Facility: [facility] Address: [address] [place] [address] Performed By: #### 5 8410-2 ####[facility] LABIA [id number] [place] [address] [place] MCH (RBC) [Entitic mass] 29.4 pg Normal 26.0-34.0 [facility] Comment on above: Order Comment: Speci men Type: BLOOD SPECIMENOrdering Facility: [facility] Address: [address] [place] [address] Performed By: #### 5 8410-2 ####[facility] LABIA [id number] [place] [address] [place] MCHC (RBC) [Mass/Vol] 31.7 g/dL Normal 30.5-36.0 [facility] Comment on above: Order Comment: Speci men Type: BLOOD SPECIMENOrdering Facility: [facility] Address: [address] [place] [address] Performed By: #### 5 8410-2 ####[facility] LABCLIA [id number] [place] [address] [place] MCV (RBC) [Entitic vol] 92.9 fL Normal 80.0-100.0 [facility] Comment on above: Order Comment: Speci men Type: BLOOD SPECIMENOrdering Facility: [facility] Address: [address] [place] [address] Performed By: #### 5 8410-2 ####[facility] LABIA [id number] [place] [address] [place] Nucleated RBC (Bld) [#/Vol] 10*3/uL Normal <0.01 [facility] Comment on above: Order Comment: Speci men Type: BLOOD SPECIMENOrdering Facility: [facility] Address: [address] [place] [address] Performed By: #### 5 8410-2 ####[facility] LABIA [id number] [place] [address] [place] Platelet mean volume (Bld) [Entitic vol] 10.7 fL Normal 9.0-12.7 [facility] Comment on above: Order Comment: Speci men Type: BLOOD SPECIMENOrdering Facility: [facility] Address: [address] [place] [address] Performed By: #### 5 8410-2 ####[facility] LABIA [id number] [place] [address] [place] Platelets (Bld) [#/Vol] 241 10*3/uL Normal 150-400 [facility] Comment on above: Order Comment: Speci men Type: BLOOD SPECIMENOrdering Facility: [facility] Address: [address] [place] [address] Performed By: #### 5 8410-2 ####[facility] LABCLIA [id number] [place] [address] [place] RBC (Bld) [#/Vol] 3.23 10*6/uL Low 4.20-6.00 [facility] Comment on above: Order Comment: Speci men Type: BLOOD SPECIMENOrdering Facility: [facility] Address: [address] [place] [address] Performed By: #### 5 8410-2 ####[facility] LABCLIA [id number] [place] [address] [place] WBC (Bld) [#/Vol] 9.22 10*3/uL Normal 3.70-11.00 [facility] Comment on above: Order Comment: Speci men Type: BLOOD SPECIMENOrdering Facility: [facility] Address: [address] [place] [address] Performed By: #### 5 8410-2 ####[facility] LABCLIA [id number] [place] [address] [place] Comprehensive metabolic 2000 panelon 10-30-2024 Albumin [Mass/Vol] 3.9 g/dL Normal 3.9-4.9 [facility] Comment on above: Order Comment: Speci men Type: BLOOD SPECIMENOrdering Facility: [facility] Address: [address] [place] [address] Performed By: #### 2 4323-8, ####[facility] LABCLIA [id number] [place] [address] [place] ALP [Catalytic activity/Vol] 54 U/L Normal 38-113 [facility] Comment on above: Order Comment: Speci men Type: BLOOD SPECIMENOrdering Facility: [facility] Address: [address] [place] [address] Performed By: #### 2 4323-8, ####[facility] LABCLIA [id number] [place] [address] [place] ALT [Catalytic activity/Vol] 15 U/L Normal 10-54 [facility] Comment on above: Order Comment: Speci men Type: BLOOD SPECIMENOrdering Facility: [facility] Address: [address] [place] [address] Performed By: #### 2 4323-8, ####[facility] LABCLIA [id number] [address] [address] [place] Anion gap [Moles/Vol] 13 mmol/L Normal 8-15 [facility] Comment on above: Order Comment: Speci men Type: BLOOD SPECIMENOrdering Facility: [facility] Address: [address] [place], [place] [address] Performed By: #### 2 432-8, ####[facility] LABCLIA [id number] [place] [address] [place] AST [Catalytic activity/Vol] 16 U/L Normal 14-40 [facility] Comment on above: Order Comment: Speci men Type: BLOOD SPECIMENOrdering Facility: [facility] Address: [address] [place], [place] [address] Performed By: #### 2 432-8, ####[facility] LABCLIA [id number] [place] [address] [place] Bilirubin [Mass/Vol] mg/dL Low 0.2-1.3 [facility] Comment on above: Order Comment: Speci men Type: BLOOD SPECIMENOrdering Facility: [facility] Address: [address] [place] [address] Performed By: #### 2 4323-8, ####[facility] LABCLIA [id number] [place] [id number] [place] Calcium [Mass/Vol] 8.9 mg/dL Normal 8.5-10.2 [facility] Comment on above: Order Comment: Speci men Type: BLOOD SPECIMENOrdering Facility: [facility] Address: [address] [place] [address] Performed By: #### 2 4328, ####[facility] LABCLIA [id number] [place] [id number] [place] Chloride [Moles/Vol] 104 mmol/L Normal 98-107 [facility] Comment on above: Order Comment: Speci men Type: BLOOD SPECIMENOrdering Facility: [facility] Address: [address] [place] [address] Performed By: #### 2 4328, ####[facility] LABCLIA [id number] [place] [address] [place] CO2 [Moles/Vol] 19 mmol/L Low 22-30 [facility] Comment on above: Order Comment: Speci men Type: BLOOD SPECIMENOrdering Facility: [facility] Address: [address] [place] [address] Performed By: #### 2 4328, ####[facility] LABCLIA [id number] [place] [address] [place] Creatinine [Mass/Vol] 1.50 mg/dL High 0.73-1.22 [facility] Comment on above: Order Comment: Speci men Type: BLOOD SPECIMENOrdering Facility: [facility] Address: [address] [place] [address] Performed By: #### 2 4323-8, ####[facility] LABIA [id number] [place] [address] [place] Creatinine and Glomerular filtration rate.predicted panel (S/P/Bld) 49 mL/min/1.73m??? Low >=60 [facility] Comment on above: Order Comment: Speci men Type: BLOOD SPECIMENOrdering Facility: [facility] Address: [address] [place] [address] Result Comment: Mary Kay mated Glomerular Filtration [...] actual GFR. Performed By: #### 2 4323-04, ####[facility] LABCLIA [id number] [address] [address] [place] Glucose [Mass/Vol] 162 mg/dL High 74-99 [facility] Comment on above: Order Comment: Jose Cruz johnson Type: BLOOD SPECIMENOrdering Facility: [facility] Address: [address] [place] [address] Result Comment: The [place] Diabetes Association (ADA) provides guidance for cutoff [...] Standards of Medical Care in Diabetes 2016, [place] Diabetes Association. Diabetes Care. 2016.39(Suppl 1). Performed By: #### 2 4323-04, ####[facility] LABCLIA [id number] [address] [address] [place] Potassium [Moles/Vol] 4.5 mmol/L Normal 3.7-5.1 [facility] Comment on above: Order Comment: Jose Cruz johnson Type: BLOOD SPECIMENOrdering Facility: [facility] Address: [address] [place] [address] Performed By: #### 2 4323-04, ####[facility] LABCLIA [id number] [address] [address] [place] Protein [Mass/Vol] 6.5 g/dL Normal 6.3-8.0 [facility] Comment on above: Order Comment: Speci men Type: BLOOD SPECIMENOrdering Facility: [facility] Address: [address] [place], [place] [address] Performed By: #### 2 4323-8, ####[facility] LABCLIA [id number] [address] [address] [place] Sodium [Moles/Vol] 136 mmol/L Normal 136-144 [facility] Comment on above: Order Comment: Speci men Type: BLOOD SPECIMENOrdering Facility: [facility] Address: [address] [place] [address] Performed By: #### 2 4323-8, ####[facility] LABCLIA [id number] [place] [address] [place] Urea nitrogen [Mass/Vol] 19 mg/dL Normal 9-24 [facility] Comment on above: Order Comment: Speci men Type: BLOOD SPECIMENOrdering Facility: [facility] Address: [address] [place] [address] Performed By: #### 2 4323-8, ####[facility] LABCLIA [id number] [place] [address] [place] ECG COMPLETEon 10-30-2024 ECG COMPLETE Normal [facility] ECG COMPLETE Normal [facility] Magnesium SerPl-mCncon 10-30 Magnesium [Mass/Vol] 1.9 mg/dL Normal 1.7-2.3 [facility] Comment on above: Order Comment: Speci men Type: BLOOD SPECIMENOrdering Facility: [facility] Address: [address] [place], [place] [address] Performed By: #### 2 4323-8, ####[facility] LABCLIA [id number] [address] [address] [place] NURSING PROGon 10-30-2024 NURSING PROG Normal [facility] PT EDon 10-30-2024 PT ED Normal [facility] PT ED Normal [facility] PTT, ANTICOAGULANT THERAPYon 10-30-2024 aPTT Coag (PPP) [Time] 77.1 s High 23.0-32.4 [facility] Comment on above: Order Comment: Speci men Type: BLOOD SPECIMENOrdering Facility: [facility] Address: [address] [place] [address] Performed By: #### P TTAC ####[facility] LABIA [id number] [place] [address] [place] CBC panel Auto (Bld)on 10-29 Erythrocyte distribution width (RBC) [Ratio] 12.9 % Normal 11.5-15.0 [facility] Comment on above: Order Comment: Speci men Type: BLOOD SPECIMENOrdering Facility: [facility] Address: [address] [place] [address] Performed By: #### 5 8410-2 ####[facility] [id number] [place] [address] [place] Hematocrit (Bld) [Volume fraction] 29.8 % Low 39.0-51.0 [facility] Comment on above: Order Comment: Speci men Type: BLOOD SPECIMENOrdering Facility: [facility] Address: [address] [place] [address] Performed By: #### 5 8410-2 ####[facility] LABIA [id number] [place] [address] [place] Hemoglobin (Bld) [Mass/Vol] 9.6 g/dL Low 13.0-17.0 [facility] Comment on above: Order Comment: Speci men Type: BLOOD SPECIMENOrdering Facility: [facility] Address: [address] [place] [address] Performed By: #### 5 8410-2 ####[facility] LABIA [id number] [place] [address] [place] MCH (RBC) [Entitic mass] 29.7 pg Normal 26.0-34.0 [facility] Comment on above: Order Comment: Speci men Type: BLOOD SPECIMENOrdering Facility: [facility] Address: [address] [place] [address] Performed By: #### 5 8410-2 ####[facility] LABCLIA [id number] [place] [address] [place] MCHC (RBC) [Mass/Vol] 32.2 g/dL Normal 30.5-36.0 [facility] Comment on above: Order Comment: Speci men Type: BLOOD SPECIMENOrdering Facility: [facility] Address: [address] [place] [address] Performed By: #### 5 8410-2 ####[facility] LABIA [id number] [place] [address] [place] MCV (RBC) [Entitic vol] 92.3 fL Normal 80.0-100.0 [facility] Comment on above: Order Comment: Speci men Type: BLOOD SPECIMENOrdering Facility: [facility] Address: [address] [place] [address] Performed By: #### 5 8410-2 ####[facility] LABIA [id number] [place] [address] [place] Nucleated RBC (Bld) [#/Vol] 10*3/uL Normal <0.01 [facility] Comment on above: Order Comment: Speci men Type: BLOOD SPECIMENOrdering Facility: [facility] Address: [address] [place] [address] Performed By: #### 5 8410-2 ####[facility] LABCLIA [id number] [place] [address] [place] Platelet mean volume (Bld) [Entitic vol] 11.1 fL Normal 9.0-12.7 [facility] Comment on above: Order Comment: Speci men Type: BLOOD SPECIMENOrdering Facility: [facility] Address: [address] [place] [address] Performed By: #### 5 8410-2 ####[facility] LABCLIA [id number] [place] [address] [place] Platelets (Bld) [#/Vol] 228 10*3/uL Normal 150-400 [facility] Comment on above: Order Comment: Speci men Type: BLOOD SPECIMENOrdering Facility: [facility] Address: [address] [place] [address] Performed By: #### 5 8410-2 ####[facility] LABIA [id number] [place] [address] [place] RBC (Bld) [#/Vol] 3.23 10*6/uL Low 4.20-6.00 [facility] Comment on above: Order Comment: Speci men Type: BLOOD SPECIMENOrdering Facility: [facility] Address: [address] [place] [address] Performed By: #### 5 8410-2 ####[facility] LABIA [id number] [place] [address] [place] WBC (Bld) [#/Vol] 8.86 10*3/uL Normal 3.70-11.00 [facility] Comment on above: Order Comment: Speci men Type: BLOOD SPECIMENOrdering Facility: [facility] Address: [address] [place] [address] Performed By: #### 5 8410-2 ####[facility] LABIA [id number] [place] [address] [place] Comprehensive metabolic 2000 panelon 10-29-2024 Albumin [Mass/Vol] 4.0 g/dL Normal 3.9-4.9 [facility] Comment on above: Order Comment: Speci men Type: BLOOD SPECIMENOrdering Facility: [facility] Address: [address] [place] [address] Performed By: #### 2 4323-8, ####[facility] LABCLIA [id number] [place] [id number] [place] ALP [Catalytic activity/Vol] 47 U/L Normal 38-113 [facility] Comment on above: Order Comment: Speci men Type: BLOOD SPECIMENOrdering Facility: [facility] Address: [address] [place] [address] Performed By: #### 2 432-8, ####[facility] LABCLIA [id number] [place] [address] [place] ALT [Catalytic activity/Vol] 18 U/L Normal 10-54 [facility] Comment on above: Order Comment: Speci men Type: BLOOD SPECIMENOrdering Facility: [facility] Address: [address] [place] [address] Performed By: #### 2 432-8, ####[facility] LABCLIA [id number] [place] [address] [place] Anion gap [Moles/Vol] 11 mmol/L Normal 8-15 [facility] Comment on above: Order Comment: Speci men Type: BLOOD SPECIMENOrdering Facility: [facility] Address: [address] [place] [address] Performed By: #### 2 4323-8, ####[facility] LABCLIA [id number] [place] [id number] [place] AST [Catalytic activity/Vol] 17 U/L Normal 14-40 [facility] Comment on above: Order Comment: Speci men Type: BLOOD SPECIMENOrdering Facility: [facility] Address: [address] [place], [place] [address] Performed By: #### 2 4323-8, 11535-9 ####[facility] LABCLIA [id number] [place] [id number] [place] Bilirubin [Mass/Vol] mg/dL Low 0.2-1.3 [facility] Comment on above: Order Comment: Speci men Type: BLOOD SPECIMENOrdering Facility: [facility] Address: [address] [place] [address] Performed By: #### 2 432-8, ####[facility] LABCLIA [id number] [place] [address] [place] Calcium [Mass/Vol] 9.1 mg/dL Normal 8.5-10.2 [facility] Comment on above: Order Comment: Speci men Type: BLOOD SPECIMENOrdering Facility: [facility] Address: [address] [place] [address] Performed By: #### 2 432-8, ####[facility] LABCLIA [id number] [place] [address] [place] Chloride [Moles/Vol] 103 mmol/L Normal 98-107 [facility] Comment on above: Order Comment: Speci men Type: BLOOD SPECIMENOrdering Facility: [facility] Address: [address] [place] [address] Performed By: #### 2 4323-04, ####[facility] LABCLIA [id number] [place] [address] [place] CO2 [Moles/Vol] 23 mmol/L Normal 22-30 [facility] Comment on above: Order Comment: Speci men Type: BLOOD SPECIMENOrdering Facility: [facility] Address: [address] [place], [place] [address] Performed By: #### 2 4322-8, ####[facility] LABCLIA [id number] [place] [id number] [place] Creatinine [Mass/Vol] 1.44 mg/dL High 0.73-1.22 [facility] Comment on above: Order Comment: Speci men Type: BLOOD SPECIMENOrdering Facility: [facility] Address: [address] [place] [address] Performed By: #### 2 4323-8, ####[facility] LABIA [id number] [place] [address] [place] Creatinine and Glomerular filtration rate.predicted panel (S/P/Bld) 52 mL/min/1.73m??? Low >=60 [facility] Comment on above: Order Comment: Jose Cruz johnson Type: BLOOD SPECIMENOrdering Facility: [facility] Address: [address] [place] [address] Result Comment: Mary Kay mated Glomerular Filtration [...] actual GFR. Performed By: #### 2 4323-8, ####[facility] LABCLIA [id number] [place] [address] [place] Glucose [Mass/Vol] 107 mg/dL High 74-99 [facility] Comment on above: Order Comment: Jose Cruz johnson Type: BLOOD SPECIMENOrdering Facility: [facility] Address: [address] [place] [address] Result Comment: [place] Diabetes Association (ADA) provides guidance for cutoff [...] Standards of Medical Care in Diabetes 2016, [place] Diabetes Association. Diabetes Care. 2016.39(Suppl 1). Performed By: #### 2 432-8, ####[facility] LABCLIA [id number] [place] [address] [place] Potassium [Moles/Vol] 4.4 mmol/L Normal 3.7-5.1 [facility] Comment on above: Order Comment: Speci men Type: BLOOD SPECIMENOrdering Facility: [facility] Address: [address] [place] [address] Performed By: #### 2 8, ####[facility] LABCLIA [id number] [place] [address] [place] Protein [Mass/Vol] 6.9 g/dL Normal 6.3-8.0 [facility] Comment on above: Order Comment: Speci men Type: BLOOD SPECIMENOrdering Facility: [facility] Address: [address] [place] [address] Performed By: #### 2 4323-04, ####[facility] LABCLIA [id number] [place] [address] [place] Sodium [Moles/Vol] 137 mmol/L Normal 136-144 [facility] Comment on above: Order Comment: Speci men Type: BLOOD SPECIMENOrdering Facility: [facility] Address: [address] [place] [address] Performed By: #### 2 4323-04, ####[facility] LABCLIA [id number] [place] [id number] [place] Urea nitrogen [Mass/Vol] 19 mg/dL Normal 9-24 [facility] Comment on above: Order Comment: Speci men Type: BLOOD SPECIMENOrdering Facility: [facility] Address: [address] [place], [place] [address] Performed By: #### 2 4323-8, ####[facility] LABCLIA [id number] [place] [address] [place] Magnesium SerPl-mCncon 10-29 Magnesium [Mass/Vol] 2.1 mg/dL Normal 1.7-2.3 [facility] Comment on above: Order Comment: Speci men Type: BLOOD SPECIMENOrdering Facility: [facility] Address: [address] [place] [address] Performed By: #### 2 4323-8, 81564-1 ####[facility] LABCLIA [id number] [place] [address] [place] PTT, ANTICOAGULANT THERAPYon 10-29-2024 aPTT Coag (PPP) [Time] 47.0 s High 23.0-32.4 [facility] Comment on above: Order Comment: Speci men Type: BLOOD SPECIMENOrdering Facility: [facility] Address: [address] [place] [address] Performed By: #### P TTAC ####[facility] LABCLIA [id number] [place] [address] [place] aPTT Coag (PPP) [Time] 53.5 s High 23.0-32.4 [facility] Comment on above: Order Comment: Speci men Type: BLOOD SPECIMENOrdering Facility: [facility] Address: [address] [place] [address] Performed By: #### P TTAC ####[facility] LABCLIA [id number] [address] [place] aPTT Coag (PPP) [Time] 78.0 s High 23.0-32.4 [facility] Comment on above: Order Comment: Speci men Type: BLOOD SPECIMENOrdering Facility: [facility] Address: [address] [place] [address] Performed By: #### P TTAC ####[facility] LABCLIA [id number] [place] [address] [place] XR CHEST 1V FRONTAL PORTon 0 10-29-2024 XR CHEST 1V FRONTAL PORT Normal [facility] CBC panel Auto (Bld)on 10-28 Erythrocyte distribution width (RBC) [Ratio] 12.7 % Normal 11.5-15.0 [facility] Comment on above: Order Comment: Speci men Type: BLOOD SPECIMENOrdering Facility: [facility] Address: [address] [place] [address] Performed By: #### 5 8410-2 ####[facility] LABIA [id number] [place] [address] [place] Hematocrit (Bld) [Volume fraction] 30.9 % Low 39.0-51.0 [facility] Comment on above: Order Comment: Speci men Type: BLOOD SPECIMENOrdering Facility: [facility] Address: [address] [place] [address] Performed By: #### 5 8410-2 ####[facility] LABIA [id number] [place] [address] [place] Hemoglobin (Bld) [Mass/Vol] 9.9 g/dL Low 13.0-17.0 [facility] Comment on above: Order Comment: Speci men Type: BLOOD SPECIMENOrdering Facility: [facility] Address: [address] [place] [address] Performed By: #### 5 8410-2 ####[facility] LABIA [id number] [place] [address] [place] MCH (RBC) [Entitic mass] 29.7 pg Normal 26.0-34.0 [facility] Comment on above: Order Comment: Speci men Type: BLOOD SPECIMENOrdering Facility: [facility] Address: [address] [place] [address] Performed By: #### 5 8410-2 ####[facility] LABCLIA [id number] [place] [address] [place] MCHC (RBC) [Mass/Vol] 32.0 g/dL Normal 30.5-36.0 [facility] Comment on above: Order Comment: Speci men Type: BLOOD SPECIMENOrdering Facility: [facility] Address: [address] [place] [address] Performed By: #### 5 8410-2 ####[facility] LABIA [id number] [place] [address] [place] MCV (RBC) [Entitic vol] 92.8 fL Normal 80.0-100.0 [facility] Comment on above: Order Comment: Speci men Type: BLOOD SPECIMENOrdering Facility: [facility] Address: [address] [place] [address] Performed By: #### 5 8410-2 ####[facility] LABIA [id number] [place] [address] [place] Nucleated RBC (Bld) [#/Vol] 10*3/uL Normal <0.01 [facility] Comment on above: Order Comment: Speci men Type: BLOOD SPECIMENOrdering Facility: [facility] Address: [address] [place] [address] Performed By: #### 5 8410-2 ####[facility] LABIA [id number] [place] [address] [place] Platelet mean volume (Bld) [Entitic vol] 10.8 fL Normal 9.0-12.7 [facility] Comment on above: Order Comment: Speci men Type: BLOOD SPECIMENOrdering Facility: [facility] Address: [address] [place] [address] Performed By: #### 5 8410-2 ####[facility] LABIA [id number] [place] [address] [place] Platelets (Bld) [#/Vol] 230 10*3/uL Normal 150-400 [facility] Comment on above: Order Comment: Speci men Type: BLOOD SPECIMENOrdering Facility: [facility] Address: [address] [place] [address] Performed By: #### 5 8410-2 ####[facility] LABCLIA [id number] [place] [id number] [place] RBC (Bld) [#/Vol] 3.33 10*6/uL Low 4.20-6.00 [facility] Comment on above: Order Comment: Speci men Type: BLOOD SPECIMENOrdering Facility: [facility] Address: [address] [place] [address] Performed By: #### 5 8410-2 ####[facility] LABIA [id number] [place] [address] [place] WBC (Bld) [#/Vol] 9.46 10*3/uL Normal 3.70-11.00 [facility] Comment on above: Order Comment: Speci men Type: BLOOD SPECIMENOrdering Facility: [facility] Address: [address] [place] [address] Performed By: #### 5 8410-2 ####[facility] LABIA [id number] [place] [address] [place] Comprehensive metabolic 2000 panelon 10-28-2024 Albumin [Mass/Vol] 3.8 g/dL Low 3.9-4.9 [facility] Comment on above: Order Comment: Speci men Type: BLOOD SPECIMENOrdering Facility: [facility] Address: [address] [place] [address] Performed By: #### 1 9123-9, 70018-2 ####[facility] LABIA [id number] [place] [address] [place] ALP [Catalytic activity/Vol] 46 U/L Normal 38-113 [facility] Comment on above: Order Comment: Speci men Type: BLOOD SPECIMENOrdering Facility: [facility] Address: [address] [place] [address] Performed By: #### 1 9123-9, 49982-1 ####[facility] LABCLIA [id number] [place] [id number] [place] ALT [Catalytic activity/Vol] 17 U/L Normal 10-54 [facility] Comment on above: Order Comment: Speci men Type: BLOOD SPECIMENOrdering Facility: [facility] Address: [address] [place] [address] Performed By: #### 1 23-9, ####[facility] LABCLIA [id number] [place] [address] [place] Anion gap [Moles/Vol] 10 mmol/L Normal 8-15 [facility] Comment on above: Order Comment: Speci men Type: BLOOD SPECIMENOrdering Facility: [facility] Address: [address] [place] [address] Performed By: #### 1 9123-9, ####[facility] LABCLIA [id number] [place] [address] [place] AST [Catalytic activity/Vol] 18 U/L Normal 14-40 [facility] Comment on above: Order Comment: Speci men Type: BLOOD SPECIMENOrdering Facility: [facility] Address: [address] [place] [address] Performed By: #### 1 23-9, ####[facility] LABCLIA [id number] [place] [address] [place] Bilirubin [Mass/Vol] mg/dL Low 0.2-1.3 [facility] Comment on above: Order Comment: Speci men Type: BLOOD SPECIMENOrdering Facility: [facility] Address: [address] [place] [address] Performed By: #### 1 9123-9, 37857-0 ####[facility] LABCLIA [id number] [place] [address] [place] Calcium [Mass/Vol] 8.9 mg/dL Normal 8.5-10.2 [facility] Comment on above: Order Comment: Speci men Type: BLOOD SPECIMENOrdering Facility: [facility] Address: [address] [place] [address] Performed By: #### 1 9123-9, ####[facility] LABCLIA [id number] [place] [id number] [place] Chloride [Moles/Vol] 101 mmol/L Normal 98-107 [facility] Comment on above: Order Comment: Speci men Type: BLOOD SPECIMENOrdering Facility: [facility] Address: [address] [place] [address] Performed By: #### 1 9123-9, ####[facility] LABCLIA [id number] [place] [address] [place] CO2 [Moles/Vol] 24 mmol/L Normal 22-30 [facility] Comment on above: Order Comment: Speci men Type: BLOOD SPECIMENOrdering Facility: [facility] Address: [address] [place] [address] Performed By: #### 1 9123-9, 89162-9 ####[facility] LABCLIA [id number] [place] [address] [place] Creatinine [Mass/Vol] 1.77 mg/dL High 0.73-1.22 [facility] Comment on above: Order Comment: Speci men Type: BLOOD SPECIMENOrdering Facility: [facility] Address: [address] [place] [address] Performed By: #### 1 9123-9, ####[facility] LABCLIA [id number] [place] [address] [place] Creatinine and Glomerular filtration rate.predicted panel (S/P/Bld) 40 mL/min/1.73m??? Low >=60 [facility] Comment on above: Order Comment: Speci men Type: BLOOD SPECIMENOrdering Facility: [facility] Address: [address] [place] [address] Result Comment: Mary Kay mated Glomerular Filtration [...] actual GFR. Performed By: #### 1 9123-9, 53745-4 ####[facility] LABIA [id number] [place] [address] [place] Glucose [Mass/Vol] 152 mg/dL High 74-99 [facility] Comment on above: Order Comment: Specmarleny men Type: BLOOD SPECIMENOrdering Facility: [facility] Address: [address] [place] [address] Result Comment: The [place] Diabetes Association (ADA) provides guidance for cutoff [...] Standards of Medical Care in Diabetes 2016, [place] Diabetes Association. Diabetes Care. 2016.39(Suppl 1). Performed By: #### 1 9123-9, 98794-5 ####[facility] [id number] [place] [id number] [place] Potassium [Moles/Vol] 4.4 mmol/L Normal 3.7-5.1 [facility] Comment on above: Order Comment: Speci men Type: BLOOD SPECIMENOrdering Facility: [facility] Address: [address] [place] [address] Performed By: #### 1 9123-9, 63158-0 ####[facility] LABCLIA [id number] [place] [address] [place] Protein [Mass/Vol] 6.5 g/dL Normal 6.3-8.0 [facility] Comment on above: Order Comment: Speci men Type: BLOOD SPECIMENOrdering Facility: [facility] Address: [address] [place] [address] Performed By: #### 1 9123-9, ####[facility] LABCLIA [id number] [place] [address] [place] Sodium [Moles/Vol] 135 mmol/L Low 136-144 [facility] Comment on above: Order Comment: Speci men Type: BLOOD SPECIMENOrdering Facility: [facility] Address: [address] [place] [address] Performed By: #### 1 9123-9, 78549-5 ####[facility] LABCLIA [id number] [place] [address] [place] Urea nitrogen [Mass/Vol] 26 mg/dL High 9-24 [facility] Comment on above: Order Comment: Speci men Type: BLOOD SPECIMENOrdering Facility: [facility] Address: [address] [place] [address] Performed By: #### 1 9123-9, 22150-3 ####[facility] LABCLIA [id number] [place] [address] [place] Magnesium SerPl-mCncon 10-28 Magnesium [Mass/Vol] 2.2 mg/dL Normal 1.7-2.3 [facility] Comment on above: Order Comment: Speci men Type: BLOOD SPECIMENOrdering Facility: [facility] Address: [address] [place] [address] Performed By: #### 1 9123-9, 47410-8 ####[facility] LABCLIA [id number] [place] [address] [place] PTT, ANTICOAGULANT THERAPYon 10-28-2024 aPTT Coag (PPP) [Time] 53.5 s High 23.0-32.4 [facility] Comment on above: Order Comment: Speci men Type: BLOOD SPECIMENOrdering Facility: [facility] Address: [address] [place] [address] Performed By: #### P TTAC ####[facility] LABCLIA [id number] [place] [address] [place] Basic metabolic 2000 panelon 10-27-2024 Anion gap [Moles/Vol] 13 mmol/L Normal 8-15 [facility] Comment on above: Order Comment: Speci men Type: BLOOD SPECIMENOrdering Facility: [facility] Address: [address] [place] [address] Performed By: #### 2 4321-2 ####[facility] LABCLIA [id number] [place] [address] [place] Calcium [Mass/Vol] 9.4 mg/dL Normal 8.5-10.2 [facility] Comment on above: Order Comment: Speci men Type: BLOOD SPECIMENOrdering Facility: [facility] Address: [address] [place] [address] Performed By: #### 2 4321-2 ####[facility] LABCLIA [id number] [place] [address] [place] Chloride [Moles/Vol] 100 mmol/L Normal 98-107 [facility] Comment on above: Order Comment: Speci men Type: BLOOD SPECIMENOrdering Facility: [facility] Address: [address] [place] [address] Performed By: #### 2 4321-2 ####[facility] LABCLIA [id number] [place] [address] [place] CO2 [Moles/Vol] 23 mmol/L Normal 22-30 [facility] Comment on above: Order Comment: Speci men Type: BLOOD SPECIMENOrdering Facility: [facility] Address: [address] [place] [address] Performed By: #### 2 4321-2 ####[facility] LABCLIA [id number] [place] [address] [place] Creatinine [Mass/Vol] 1.63 mg/dL High 0.73-1.22 [facility] Comment on above: Order Comment: Speci men Type: BLOOD SPECIMENOrdering Facility: [facility] Address: [address] [place] [address] Performed By: #### 2 4321-2 ####[facility] LABIA [id number] [place] [address] [place] Creatinine and Glomerular filtration rate.predicted panel (S/P/Bld) 44 mL/min/1.73m??? Low >=60 [facility] Comment on above: Order Comment: Speci men Type: BLOOD SPECIMENOrdering Facility: [facility] Address: [address] [place] [address] Result Comment: Mary Kay mated Glomerular Filtration [...] actual GFR. Performed By: #### 2 4321-2 ####[facility] LABCLIA [id number] [place] [id number] [place] Glucose [Mass/Vol] 127 mg/dL High 74-99 [facility] Comment on above: Order Comment: Speci men Type: BLOOD SPECIMENOrdering Facility: [facility] Address: [address] [place] [address] Result Comment: The [place] Diabetes Association (ADA) provides guidance for cutoff [...] Standards of Medical Care in Diabetes 2016, [place] [employer]. Diabetes Care. 2016.39(Suppl 1). Performed By: #### 2 4321-2 ####[facility] LABCLIA [id number] [place] [address] [place] Potassium [Moles/Vol] 4.9 mmol/L Normal 3.7-5.1 [facility] Comment on above: Order Comment: Jose Cruz johnson Type: BLOOD SPECIMENOrdering Facility: [facility] Address: [address] [place] [address] Performed By: #### 2 4321-2 ####[facility] LABIA [id number] [place] [address] [place] Sodium [Moles/Vol] 136 mmol/L Normal 136-144 [facility] Comment on above: Order Comment: Jose Cruz johnson Type: BLOOD SPECIMENOrdering Facility: [facility] Address: [address] [place] [address] Performed By: #### 2 1-2 ####[facility] LABCLIA [id number] [place] [address] [place] Urea nitrogen [Mass/Vol] 26 mg/dL High 9-24 [facility] Comment on above: Order Comment: Jose Cruz johnson Type: BLOOD SPECIMENOrdering Facility: [facility] Address: [address] [place] [address] Performed By: #### 2 4321-2 ####[facility] LABIA [id number] [place] [address] [place] CBC panel Auto (Bld)on 10-27 Erythrocyte distribution width (RBC) [Ratio] 12.7 % Normal 11.5-15.0 [facility] Comment on above: Order Comment: Speci men Type: BLOOD SPECIMENOrdering Facility: [facility] Address: [address] [place] [address] Performed By: #### 5 8410-2 ####[facility] LABCLIA [id number] [place] [address] [place] Hematocrit (Bld) [Volume fraction] 33.9 % Low 39.0-51.0 [facility] Comment on above: Order Comment: Speci men Type: BLOOD SPECIMENOrdering Facility: [facility] Address: [address] [place] [address] Performed By: #### 5 8410-2 ####[facility] LABIA [id number] [address] [place] Hemoglobin (Bld) [Mass/Vol] 11.1 g/dL Low 13.0-17.0 [facility] Comment on above: Order Comment: Speci men Type: BLOOD SPECIMENOrdering Facility: [facility] Address: [address] [place] [address] Performed By: #### 5 8410-2 ####[facility] LABIA [id number] [place] [address] [place] MCH (RBC) [Entitic mass] 30.0 pg Normal 26.0-34.0 [facility] Comment on above: Order Comment: Speci men Type: BLOOD SPECIMENOrdering Facility: [facility] Address: [address] [place] [address] Performed By: #### 5 8410-2 ####[facility] LABCLIA [id number] [place] [address] [place] MCHC (RBC) [Mass/Vol] 32.7 g/dL Normal 30.5-36.0 [facility] Comment on above: Order Comment: Speci men Type: BLOOD SPECIMENOrdering Facility: [facility] Address: [address] [place] [address] Performed By: #### 5 8410-2 ####[facility] [id number] [place] [address] [place] MCV (RBC) [Entitic vol] 91.6 fL Normal 80.0-100.0 [facility] Comment on above: Order Comment: Speci men Type: BLOOD SPECIMENOrdering Facility: [facility] Address: [address] [place] [address] Performed By: #### 5 8410-2 ####[facility] [id number] [place] [address] [place] Nucleated RBC (Bld) [#/Vol] 10*3/uL Normal <0.01 [facility] Comment on above: Order Comment: Speci men Type: BLOOD SPECIMENOrdering Facility: [facility] Address: [address] [place] [address] Performed By: #### 5 8410-2 ####[facility] [id number] [place] [address] [place] Platelet mean volume (Bld) [Entitic vol] 10.6 fL Normal 9.0-12.7 [facility] Comment on above: Order Comment: Speci men Type: BLOOD SPECIMENOrdering Facility: [facility] Address: [address] [place] [address] Performed By: #### 5 8410-2 ####[facility] LABIA [id number] [place] [address] [place] Platelets (Bld) [#/Vol] 247 10*3/uL Normal 150-400 [facility] Comment on above: Order Comment: Speci men Type: BLOOD SPECIMENOrdering Facility: [facility] Address: [address] [place] [address] Performed By: #### 5 8410-2 ####[facility] LABCLIA [id number] [address] [address] [place] RBC (Bld) [#/Vol] 3.70 10*6/uL Low 4.20-6.00 [facility] Comment on above: Order Comment: Speci men Type: BLOOD SPECIMENOrdering Facility: [facility] Address: [address] [place] [address] Performed By: #### 5 8410-2 ####[facility] LABCLIA [id number] [address] [address] [place] WBC (Bld) [#/Vol] 9.26 10*3/uL Normal 3.70-11.00 [facility] Comment on above: Order Comment: Speci men Type: BLOOD SPECIMENOrdering Facility: [facility] Address: [address] [place] [address] Performed By: #### 5 8410-2 ####[facility] LABIA [id number] [place] [address] [place] Comprehensive metabolic 2000 panelon 10-27-2024 Albumin [Mass/Vol] 4.1 g/dL Normal 3.9-4.9 [facility] Comment on above: Order Comment: Speci men Type: BLOOD SPECIMENOrdering Facility: [facility] Address: [address] [place] [address] Performed By: #### 1 9123-9, 99176-9 ####[facility] LABIA [id number] [place] [address] [place] ALP [Catalytic activity/Vol] 49 U/L Normal 38-113 [facility] Comment on above: Order Comment: Speci men Type: BLOOD SPECIMENOrdering Facility: [facility] Address: [address] [place] [address] Performed By: #### 1 9123-9, 46435-6 ####[facility] LABCLIA [id number] [place] [address] [place] ALT [Catalytic activity/Vol] 28 U/L Normal 10-54 [facility] Comment on above: Order Comment: Speci men Type: BLOOD SPECIMENOrdering Facility: [facility] Address: [address] [place] [address] Performed By: #### 1 9123-9, ####[facility] LABCLIA [id number] [place] [address] [place] Anion gap [Moles/Vol] 17 mmol/L High 8-15 [facility] Comment on above: Order Comment: Speci men Type: BLOOD SPECIMENOrdering Facility: [facility] Address: [address] [place] [address] Performed By: #### 1 9123-9, ####[facility] LABCLIA [id number] [place] [address] [place] AST [Catalytic activity/Vol] 28 U/L Normal 14-40 [facility] Comment on above: Order Comment: Speci men Type: BLOOD SPECIMENOrdering Facility: [facility] Address: [address] [place] [address] Performed By: #### 1 9123-9, ####[facility] LABCLIA [id number] [place] [address] [place] Bilirubin [Mass/Vol] 0.3 mg/dL Normal 0.2-1.3 [facility] Comment on above: Order Comment: Speci men Type: BLOOD SPECIMENOrdering Facility: [facility] Address: [address] [place] [address] Performed By: #### 1 9123-9, ####[facility] LABCLIA [id number] [place] [id number] [place] Calcium [Mass/Vol] 9.7 mg/dL Normal 8.5-10.2 [facility] Comment on above: Order Comment: Speci men Type: BLOOD SPECIMENOrdering Facility: [facility] Address: [address] [place] [address] Performed By: #### 1 9123-9, 87987-8 ####[facility] LABCLIA [id number] [place] [address] [place] Chloride [Moles/Vol] 99 mmol/L Normal 98-107 [facility] Comment on above: Order Comment: Speci men Type: BLOOD SPECIMENOrdering Facility: [facility] Address: [address] [place] [address] Performed By: #### 1 9123-9, 86480-7 ####[facility] LABCLIA [id number] [place] [address] [place] CO2 [Moles/Vol] 15 mmol/L Low 22-30 [facility] Comment on above: Order Comment: Speci men Type: BLOOD SPECIMENOrdering Facility: [facility] Address: [address] [place] [address] Performed By: #### 1 9123-9, 65329-3 ####[facility] LABCLIA [id number] [place] [address] [place] Creatinine [Mass/Vol] 1.49 mg/dL High 0.73-1.22 [facility] Comment on above: Order Comment: Speci men Type: BLOOD SPECIMENOrdering Facility: [facility] Address: [address] [place] [address] Performed By: #### 1 9123-9, 74043-9 ####[facility] LABCLIA [id number] [place] [address] [place] Creatinine and Glomerular filtration rate.predicted panel (S/P/Bld) 50 mL/min/1.73m??? Low >=60 [facility] Comment on above: Order Comment: Speci men Type: BLOOD SPECIMENOrdering Facility: [facility] Address: [address] [place] [address] Result Comment: Mary Kay mated Glomerular Filtration [...] actual GFR. Performed By: #### 1 9123-9, 95441-4 ####[facility] LABCLIA [id number] [place] [address] [place] Glucose [Mass/Vol] 133 mg/dL High 74-99 [facility] Comment on above: Order Comment: Jose Cruz johnson Type: BLOOD SPECIMENOrdering Facility: [facility] Address: [address] [place] [address] Result Comment: The [place] Diabetes Association (ADA) provides guidance for cutoff [...] Standards of Medical Care in Diabetes 2016, [place] Diabetes Association. Diabetes Care. 2016.39(Suppl 1). Performed By: #### 1 9123-9, 00852-9 ####[facility] LABCLIA [id number] [place] [address] [place] Potassium [Moles/Vol] 5.8 mmol/L High 3.7-5.1 [facility] Comment on above: Order Comment: Jose Cruz johnson Type: BLOOD SPECIMENOrdering Facility: [facility] Address: [address] [place] [address] Performed By: #### 1 9123-9, 22797-4 ####[facility] LABCLIA [id number] [place] [address] [place] Protein [Mass/Vol] 7.8 g/dL Normal 6.3-8.0 [facility] Comment on above: Order Comment: Speci men Type: BLOOD SPECIMENOrdering Facility: [facility] Address: [address] [place] [address] Performed By: #### 1 9123-9, 43260-6 ####[facility] LABCLIA [id number] [place] [address] [place] Sodium [Moles/Vol] 131 mmol/L Low 136-144 [facility] Comment on above: Order Comment: Speci men Type: BLOOD SPECIMENOrdering Facility: [facility] Address: [address] [place] [address] Performed By: #### 1 9123-9, 65831-9 ####[facility] LABIA [id number] [place] [address] [place] Urea nitrogen [Mass/Vol] 26 mg/dL High 9-24 [facility] Comment on above: Order Comment: Speci men Type: BLOOD SPECIMENOrdering Facility: [facility] Address: [address] [place] [address] Performed By: #### 1 9123-9, 72203-5 ####[facility] LABCLIA [id number] [place] [address] [place] Magnesium SerPl-mCncon 10-27 Magnesium [Mass/Vol] 2.5 mg/dL High 1.7-2.3 [facility] Comment on above: Order Comment: Speci men Type: BLOOD SPECIMENOrdering Facility: [facility] Address: [address] [place] [address] Performed By: #### 1 9123-9, 74110-1 ####[facility] LABIA [id number] [place] [address] [place] PTT, ANTICOAGULANT THERAPYon 10-27-2024 aPTT Coag (PPP) [Time] 52.4 s High 23.0-32.4 [facility] Comment on above: Order Comment: Speci men Type: BLOOD SPECIMENOrdering Facility: [facility] Address: [address] [place] [address] Performed By: #### P TTAC ####[facility] LABCLIA [id number] [place] [address] [place] THERAPY NTon 10-27-2024 THERAPY NT Normal [facility] CASE MANAGEMon 10-26-2024 CASE MANAGEM Normal [facility] CBC panel Auto (Bld)on 10-26 Erythrocyte distribution width (RBC) [Ratio] 12.6 % Normal 11.5-15.0 [facility] Comment on above: Order Comment: Speci men Type: BLOOD SPECIMENOrdering Facility: [facility] Address: [address] [place] [address] Performed By: #### 5 8410-2 ####[facility] LABIA [id number] [place] [address] [place] Hematocrit (Bld) [Volume fraction] 31.6 % Low 39.0-51.0 [facility] Comment on above: Order Comment: Speci men Type: BLOOD SPECIMENOrdering Facility: [facility] Address: [address] [place] [address] Performed By: #### 5 8410-2 ####[facility] LABCLIA [id number] [place] [address] [place] Hemoglobin (Bld) [Mass/Vol] 10.1 g/dL Low 13.0-17.0 [facility] Comment on above: Order Comment: Speci men Type: BLOOD SPECIMENOrdering Facility: [facility] Address: [address] [place] [address] Performed By: #### 5 8410-2 ####[facility] LABIA [id number] [place] [address] [place] MCH (RBC) [Entitic mass] 29.0 pg Normal 26.0-34.0 [facility] Comment on above: Order Comment: Speci men Type: BLOOD SPECIMENOrdering Facility: [facility] Address: [address] [place] [address] Performed By: #### 5 8410-2 ####[facility] LABCLIA [id number] [place] [address] [place] MCHC (RBC) [Mass/Vol] 32.0 g/dL Normal 30.5-36.0 [facility] Comment on above: Order Comment: Speci men Type: BLOOD SPECIMENOrdering Facility: [facility] Address: [address] [place] [address] Performed By: #### 5 8410-2 ####[facility] LABCLIA [id number] [place] [address] [place] MCV (RBC) [Entitic vol] 90.8 fL Normal 80.0-100.0 [facility] Comment on above: Order Comment: Speci men Type: BLOOD SPECIMENOrdering Facility: [facility] Address: [address] [place] [address] Performed By: #### 5 8410-2 ####[facility] LABIA [id number] [place] [address] [place] Nucleated RBC (Bld) [#/Vol] 10*3/uL Normal <0.01 [facility] Comment on above: Order Comment: Speci men Type: BLOOD SPECIMENOrdering Facility: [facility] Address: [address] [place] [address] Performed By: #### 5 8410-2 ####[facility] LABCLIA [id number] [place] [address] [place] Platelet mean volume (Bld) [Entitic vol] 10.8 fL Normal 9.0-12.7 [facility] Comment on above: Order Comment: Speci men Type: BLOOD SPECIMENOrdering Facility: [facility] Address: [address] [place] [address] Performed By: #### 5 8410-2 ####[facility] LABCLIA [id number] [place] [address] [place] Platelets (Bld) [#/Vol] 251 10*3/uL Normal 150-400 [facility] Comment on above: Order Comment: Speci men Type: BLOOD SPECIMENOrdering Facility: [facility] Address: [address] [place] [address] Performed By: #### 5 8410-2 ####[facility] LABIA [id number] [place] [address] [place] RBC (Bld) [#/Vol] 3.48 10*6/uL Low 4.20-6.00 [facility] Comment on above: Order Comment: Speci men Type: BLOOD SPECIMENOrdering Facility: [facility] Address: [address] [place] [address] Performed By: #### 5 8410-2 ####[facility] LABIA [id number] [place] [address] [place] WBC (Bld) [#/Vol] 7.80 10*3/uL Normal 3.70-11.00 [facility] Comment on above: Order Comment: Speci men Type: BLOOD SPECIMENOrdering Facility: [facility] Address: [address] [place] [address] Performed By: #### 5 8410-2 ####[facility] LABIA [id number] [place] [address] [place] Comprehensive metabolic 2000 panelon 10-26-2024 Albumin [Mass/Vol] 3.8 g/dL Low 3.9-4.9 [facility] Comment on above: Order Comment: Speci men Type: BLOOD SPECIMENOrdering Facility: [facility] Address: [address] [place] [address] Performed By: #### 1 23-9, 24104-7 ####[facility] LABCLIA [id number] [address] [address] [place] ALP [Catalytic activity/Vol] 42 U/L Normal 38-113 [facility] Comment on above: Order Comment: Speci men Type: BLOOD SPECIMENOrdering Facility: [facility] Address: [address] [place], [place] [address] Performed By: #### 1 23-9, 38845-2 ####[facility] LABCLIA [id number] [place] [address] [place] ALT [Catalytic activity/Vol] 24 U/L Normal 10-54 [facility] Comment on above: Order Comment: Speci men Type: BLOOD SPECIMENOrdering Facility: [facility] Address: [address] [place] [address] Performed By: #### 1 9, ####[facility] LABCLIA [id number] [place] [id number] [place] Anion gap [Moles/Vol] 11 mmol/L Normal 8-15 [facility] Comment on above: Order Comment: Speci men Type: BLOOD SPECIMENOrdering Facility: [facility] Address: [address] [place] [address] Performed By: #### 1 23-9, 25110-1 ####[facility] LABCLIA [id number] [place] [id number] [place] AST [Catalytic activity/Vol] 20 U/L Normal 14-40 [facility] Comment on above: Order Comment: Speci men Type: BLOOD SPECIMENOrdering Facility: [facility] Address: [address] [place] [address] Performed By: #### 1 23-9, 49259-2 ####[facility] LABCLIA [id number] [address] [address] [place] Bilirubin [Mass/Vol] 0.2 mg/dL Normal 0.2-1.3 [facility] Comment on above: Order Comment: Speci men Type: BLOOD SPECIMENOrdering Facility: [facility] Address: [address] [place] [address] Performed By: #### 1 9123-9, 34177-3 ####[facility] LABCLIA [id number] [place] [address] [place] Calcium [Mass/Vol] 8.9 mg/dL Normal 8.5-10.2 [facility] Comment on above: Order Comment: Speci men Type: BLOOD SPECIMENOrdering Facility: [facility] Address: [address] [place] [address] Performed By: #### 1 9123-9, 15844-2 ####[facility] LABCLIA [id number] [place] [address] [place] Chloride [Moles/Vol] 101 mmol/L Normal 98-107 [facility] Comment on above: Order Comment: Speci men Type: BLOOD SPECIMENOrdering Facility: [facility] Address: [address] [place] [address] Performed By: #### 1 9123-9, ####[facility] LABCLIA [id number] [place] [address] [place] CO2 [Moles/Vol] 21 mmol/L Low 22-30 [facility] Comment on above: Order Comment: Speci men Type: BLOOD SPECIMENOrdering Facility: [facility] Address: [address] [place] [address] Performed By: #### 1 9123-9, ####[facility] LABCLIA [id number] [place] [address] [place] Creatinine [Mass/Vol] 1.83 mg/dL High 0.73-1.22 [facility] Comment on above: Order Comment: Speci men Type: BLOOD SPECIMENOrdering Facility: [facility] Address: [address] [place] [address] Performed By: #### 1 9123-9, 86763-7 ####[facility] LABCLIA [id number] [place] [address] [place] Creatinine and Glomerular filtration rate.predicted panel (S/P/Bld) 39 mL/min/1.73m??? Low >=60 [facility] Comment on above: Order Comment: Jose Cruz johnson Type: BLOOD SPECIMENOrdering Facility: [facility] Address: [address] [place] [address] Result Comment: Mary Kay mated Glomerular Filtration [...] actual GFR. Performed By: #### 1 9123-9, 96206-0 ####[facility] LABIA [id number] [place] [address] [place] Glucose [Mass/Vol] 132 mg/dL High 74-99 [facility] Comment on above: Order Comment: Jose Cruz johnson Type: BLOOD SPECIMENOrdering Facility: [facility] Address: [address] [place] [address] Result Comment: The [place] Diabetes Association (ADA) provides guidance for cutoff [...] Standards of Medical Care in Diabetes 2016, [place] Diabetes [employer]. Diabetes Care. 2016.39(Suppl 1). Performed By: #### 1 9123-9, 27314-6 ####[facility] LABCLIA [id number] [place] [address] [place] Potassium [Moles/Vol] 4.7 mmol/L Normal 3.7-5.1 [facility] Comment on above: Order Comment: Speci men Type: BLOOD SPECIMENOrdering Facility: [facility] Address: [address] [place] [address] Performed By: #### 1 23-9, 74576-2 ####[facility] LABCLIA [id number] [place] [address] [place] Protein [Mass/Vol] 6.6 g/dL Normal 6.3-8.0 [facility] Comment on above: Order Comment: Speci men Type: BLOOD SPECIMENOrdering Facility: [facility] Address: [address] [place] [address] Performed By: #### 1 239, 20021-2 ####[facility] LABCLIA [id number] [place] [address] [place] Sodium [Moles/Vol] 133 mmol/L Low 136-144 [facility] Comment on above: Order Comment: Speci men Type: BLOOD SPECIMENOrdering Facility: [facility] Address: [address] [place] [address] Performed By: #### 1 23-9, 89575-2 ####[facility] LABCLIA [id number] [address] [address] [place] Urea nitrogen [Mass/Vol] 29 mg/dL High 9-24 [facility] Comment on above: Order Comment: Speci men Type: BLOOD SPECIMENOrdering Facility: [facility] Address: [address] [place] [address] Performed By: #### 1 23-9, 65216-0 ####[facility] LABCLIA [id number] [place] [id number] [place] Magnesium SerPl-mCncon 10-26 Magnesium [Mass/Vol] 2.1 mg/dL Normal 1.7-2.3 [facility] Comment on above: Order Comment: Speci men Type: BLOOD SPECIMENOrdering Facility: [facility] Address: [address] [place] [address] Performed By: #### 1 9123-9, 39009-8 ####[facility] LABCLIA [id number] [place] [address] [place] NUTRITIONon 10-26-2024 NUTRITION Normal [facility] PTT, ANTICOAGULANT THERAPYon 10-26-2024 aPTT Coag (PPP) [Time] 57.2 s High 23.0-32.4 [facility] Comment on above: Order Comment: Speci men Type: BLOOD SPECIMENOrdering Facility: [facility] Address: [address] [place] [address] Performed By: #### P TTAC ####[facility] LABIA [id number] [place] [address] [place] aPTT Coag (PPP) [Time] 47.7 s High 23.0-32.4 [facility] Comment on above: Order Comment: Speci men Type: BLOOD SPECIMENOrdering Facility: [facility] Address: [address] [place] [address] Performed By: #### P TTAC ####[facility] LABIA [id number] [place] [address] [place] aPTT Coag (PPP) [Time] 51.4 s High 23.0-32.4 [facility] Comment on above: Order Comment: Speci men Type: BLOOD SPECIMENOrdering Facility: [facility] Address: [address] [place] [address] Performed By: #### P TTAC ####[facility] LABIA [id number] [place] [address] [place] aPTT Coag (PPP) [Time] 104.8 s High 23.0-32.4 [facility] Comment on above: Order Comment: Speci men Type: BLOOD SPECIMENOrdering Facility: [facility] Address: [address] [place] [address] Result Comment: Resu lt rechecked.Sample checked for clot. Performed By: #### P TTAC ####[facility] LABIA [id number] [place] [address] [place] CBC panel Auto (Bld)on 10-25 Erythrocyte distribution width (RBC) [Ratio] 12.6 % Normal 11.5-15.0 [facility] Comment on above: Order Comment: Speci men Type: BLOOD SPECIMENOrdering Facility: [facility] Address: [address] [place] [address] Performed By: #### 5 8410-2 ####[facility] [id number] [place] [address] [place] Hematocrit (Bld) [Volume fraction] 30.8 % Low 39.0-51.0 [facility] Comment on above: Order Comment: Speci men Type: BLOOD SPECIMENOrdering Facility: [facility] Address: [address] [place] [address] Performed By: #### 5 8410-2 ####[facility] LABIA [id number] [place] [address] [place] Hemoglobin (Bld) [Mass/Vol] 9.8 g/dL Low 13.0-17.0 [facility] Comment on above: Order Comment: Speci men Type: BLOOD SPECIMENOrdering Facility: [facility] Address: [address] [place] [address] Performed By: #### 5 8410-2 ####[facility] LABIA [id number] [place] [address] [place] MCH (RBC) [Entitic mass] 29.7 pg Normal 26.0-34.0 [facility] Comment on above: Order Comment: Speci men Type: BLOOD SPECIMENOrdering Facility: [facility] Address: [address] [place] [address] Performed By: #### 5 8410-2 ####[facility] LABCLIA [id number] [place] [address] [place] MCHC (RBC) [Mass/Vol] 31.8 g/dL Normal 30.5-36.0 [facility] Comment on above: Order Comment: Speci men Type: BLOOD SPECIMENOrdering Facility: [facility] Address: [address] [place] [address] Performed By: #### 5 8410-2 ####[facility] LABIA [id number] [place] [address] [place] MCV (RBC) [Entitic vol] 93.3 fL Normal 80.0-100.0 [facility] Comment on above: Order Comment: Speci men Type: BLOOD SPECIMENOrdering Facility: [facility] Address: [address] [place] [address] Performed By: #### 5 8410-2 ####[facility] LABIA [id number] [place] [address] [place] Nucleated RBC (Bld) [#/Vol] 10*3/uL Normal <0.01 [facility] Comment on above: Order Comment: Speci men Type: BLOOD SPECIMENOrdering Facility: [facility] Address: [address] [place] [address] Performed By: #### 5 8410-2 ####[facility] LABCLIA [id number] [place] [address] [place] Platelet mean volume (Bld) [Entitic vol] 10.7 fL Normal 9.0-12.7 [facility] Comment on above: Order Comment: Speci men Type: BLOOD SPECIMENOrdering Facility: [facility] Address: [address] [place] [address] Performed By: #### 5 8410-2 ####[facility] LABCLIA [id number] [place] [address] [place] Platelets (Bld) [#/Vol] 215 10*3/uL Normal 150-400 [facility] Comment on above: Order Comment: Speci men Type: BLOOD SPECIMENOrdering Facility: [facility] Address: [address] [place] [address] Performed By: #### 5 8410-2 ####[facility] LABIA [id number] [place] [address] [place] RBC (Bld) [#/Vol] 3.30 10*6/uL Low 4.20-6.00 [facility] Comment on above: Order Comment: Speci men Type: BLOOD SPECIMENOrdering Facility: [facility] Address: [address] [place] [address] Performed By: #### 5 8410-2 ####[facility] LABCLIA [id number] [place] [address] [place] WBC (Bld) [#/Vol] 8.86 10*3/uL Normal 3.70-11.00 [facility] Comment on above: Order Comment: Speci men Type: BLOOD SPECIMENOrdering Facility: [facility] Address: [address] [place] [address] Performed By: #### 5 8410-2 ####[facility] LABIA [id number] [place] [address] [place] Comprehensive metabolic 2000 panelon 10-25-2024 Albumin [Mass/Vol] 3.9 g/dL Normal 3.9-4.9 [facility] Comment on above: Order Comment: Speci men Type: BLOOD SPECIMENOrdering Facility: [facility] Address: [address] [place] [address] Performed By: #### 2 4323-8, ####[facility] LABCLIA [id number] [address] [address] [place] ALP [Catalytic activity/Vol] 50 U/L Normal 38-113 [facility] Comment on above: Order Comment: Speci men Type: BLOOD SPECIMENOrdering Facility: [facility] Address: [address] [place] [address] Performed By: #### 2 432-8, ####[facility] LABCLIA [id number] [place] [id number] [place] ALT [Catalytic activity/Vol] 31 U/L Normal 10-54 [facility] Comment on above: Order Comment: Speci men Type: BLOOD SPECIMENOrdering Facility: [facility] Address: [address] [place] [address] Performed By: #### 2 432-8, ####[facility] LABCLIA [id number] [place] [id number] [place] Anion gap [Moles/Vol] 11 mmol/L Normal 8-15 [facility] Comment on above: Order Comment: Speci men Type: BLOOD SPECIMENOrdering Facility: [facility] Address: [address] [place], [place] [address] Performed By: #### 2 4323-8, ####[facility] LABCLIA [id number] [place] [id number] [place] AST [Catalytic activity/Vol] 30 U/L Normal 14-40 [facility] Comment on above: Order Comment: Speci men Type: BLOOD SPECIMENOrdering Facility: [facility] Address: [address] [place], [place] [address] Performed By: #### 2 4323-8, ####[facility] LABCLIA [id number] [id number] [address] [place] Bilirubin [Mass/Vol] 0.2 mg/dL Normal 0.2-1.3 [facility] Comment on above: Order Comment: Speci men Type: BLOOD SPECIMENOrdering Facility: [facility] Address: [address] [place], [place] [address] Performed By: #### 2 4323-8, ####[facility] LABCLIA [id number] [place] [address] [place] Calcium [Mass/Vol] 9.2 mg/dL Normal 8.5-10.2 [facility] Comment on above: Order Comment: Speci men Type: BLOOD SPECIMENOrdering Facility: [facility] Address: [address] [place] [address] Performed By: #### 2 432-8, ####[facility] LABCLIA [id number] [place] [address] [place] Chloride [Moles/Vol] 102 mmol/L Normal 98-107 [facility] Comment on above: Order Comment: Speci men Type: BLOOD SPECIMENOrdering Facility: [facility] Address: [address] [place] [address] Performed By: #### 2 8, ####[facility] LABCLIA [id number] [place] [address] [place] CO2 [Moles/Vol] 21 mmol/L Low 22-30 [facility] Comment on above: Order Comment: Speci men Type: BLOOD SPECIMENOrdering Facility: [facility] Address: [address] [place] [address] Performed By: #### 2 4322-8, ####[facility] LABCLIA [id number] [place] [id number] [place] Creatinine [Mass/Vol] 1.81 mg/dL High 0.73-1.22 [facility] Comment on above: Order Comment: Speci men Type: BLOOD SPECIMENOrdering Facility: [facility] Address: [address] [place] [address] Performed By: #### 2 4323-8, ####[facility] LABIA [id number] [place] [id number] [place] Creatinine and Glomerular filtration rate.predicted panel (S/P/Bld) 39 mL/min/1.73m??? Low >=60 [facility] Comment on above: Order Comment: Jose Cruz johnson Type: BLOOD SPECIMENOrdering Facility: [facility] Address: [address] [place] [address] Result Comment: Mary Kay mated Glomerular Filtration [...] actual GFR. Performed By: #### 2 4323-8, ####[facility] LABIA [id number] [place] [id number] [place] Glucose [Mass/Vol] 101 mg/dL High 74-99 [facility] Comment on above: Order Comment: Jose Cruz johnson Type: BLOOD SPECIMENOrdering Facility: [facility] Address: [address] [place] [address] Result Comment: The [place] Diabetes Association (ADA) provides guidance for cutoff [...] Standards of Medical Care in Diabetes 2016, [place] [employer] Association. Diabetes Care. 2016.39(Suppl 1). Performed By: #### 2 432-8, ####[facility] LABCLIA [id number] [address] [address] [place] Potassium [Moles/Vol] 5.1 mmol/L Normal 3.7-5.1 [facility] Comment on above: Order Comment: Speci men Type: BLOOD SPECIMENOrdering Facility: [facility] Address: [address] [place] [address] Performed By: #### 2 43211-25, ####[facility] LABCLIA [id number] [place] [address] [place] Protein [Mass/Vol] 6.7 g/dL Normal 6.3-8.0 [facility] Comment on above: Order Comment: Speci men Type: BLOOD SPECIMENOrdering Facility: [facility] Address: [address] [place] [address] Performed By: #### 2 4323-04, ####[facility] LABCLIA [id number] [place] [address] [place] Sodium [Moles/Vol] 134 mmol/L Low 136-144 [facility] Comment on above: Order Comment: Speci men Type: BLOOD SPECIMENOrdering Facility: [facility] Address: [address] [place] [address] Performed By: #### 2 4323-04, ####[facility] LABCLIA [id number] [address] [address] [place] Urea nitrogen [Mass/Vol] 31 mg/dL High 9-24 [facility] Comment on above: Order Comment: Speci men Type: BLOOD SPECIMENOrdering Facility: [facility] Address: [address] [place] [address] Performed By: #### 2 4323-8, ####[facility] LABCLIA [id number] [place] [address] [place] Magnesium SerPl-mCncon 10-25 Magnesium [Mass/Vol] 2.0 mg/dL Normal 1.7-2.3 [facility] Comment on above: Order Comment: Speci men Type: BLOOD SPECIMENOrdering Facility: [facility] Address: [address] [place] [address] Performed By: #### 2 4323-8, 97251-8 ####[facility] LABIA [id number] [place] [address] [place] NM PET/CT CARDIAC VIABILITYo n 10-25-2024 NM PET/CT CARDIAC VIABILITY Normal [facility] NM PET/CT CARDIAC VIABILITY Normal [facility] NURSING PROGon 10-25-2024 NURSING PROG Normal [facility] PTT, ANTICOAGULANT THERAPYon 10-25-2024 aPTT Coag (PPP) [Time] 65.2 s High 23.0-32.4 [facility] Comment on above: Order Comment: Speci men Type: BLOOD SPECIMENOrdering Facility: [facility] Address: [address] [place] [address] Performed By: #### P TTAC ####[facility] LABIA [id number] [place] [address] [place] aPTT Coag (PPP) [Time] 45.0 s High 23.0-32.4 [facility] Comment on above: Order Comment: Speci men Type: BLOOD SPECIMENOrdering Facility: [facility] Address: [address] [place] [address] Performed By: #### P TTAC ####[facility] LABIA [id number] [place] [address] [place] aPTT Coag (PPP) [Time] 54.5 s High 23.0-32.4 [facility] Comment on above: Order Comment: Speci men Type: BLOOD SPECIMENOrdering Facility: [facility] Address: [address] [place] [address] Performed By: #### P TTA ####[facility] LABCLIA [id number] [place] [address] [place] CBC panel Auto (Bld)on 10-24 Erythrocyte distribution width (RBC) [Ratio] 12.7 % Normal 11.5-15.0 [facility] Comment on above: Order Comment: Speci men Type: BLOOD SPECIMENOrdering Facility: [facility] Address: [address] [place] [address] Performed By: #### 5 8410-2 ####[facility] LABCLIA [id number] [place] [address] [place] Hematocrit (Bld) [Volume fraction] 31.4 % Low 39.0-51.0 [facility] Comment on above: Order Comment: Speci men Type: BLOOD SPECIMENOrdering Facility: [facility] Address: [address] [place] [address] Performed By: #### 5 8410-2 ####[facility] LABIA [id number] [place] [address] [place] Hemoglobin (Bld) [Mass/Vol] 10.2 g/dL Low 13.0-17.0 [facility] Comment on above: Order Comment: Speci men Type: BLOOD SPECIMENOrdering Facility: [facility] Address: [address] [place] [address] Performed By: #### 5 8410-2 ####[facility] LABCLIA [id number] [place] [address] [place] MCH (RBC) [Entitic mass] 29.7 pg Normal 26.0-34.0 [facility] Comment on above: Order Comment: Speci men Type: BLOOD SPECIMENOrdering Facility: [facility] Address: [address] [place] [address] Performed By: #### 5 8410-2 ####[facility] LABCLIA [id number] [place] [address] [place] MCHC (RBC) [Mass/Vol] 32.5 g/dL Normal 30.5-36.0 [facility] Comment on above: Order Comment: Speci men Type: BLOOD SPECIMENOrdering Facility: [facility] Address: [address] [place] [address] Performed By: #### 5 8410-2 ####[facility] LABCLIA [id number] [place] [address] [place] MCV (RBC) [Entitic vol] 91.3 fL Normal 80.0-100.0 [facility] Comment on above: Order Comment: Speci men Type: BLOOD SPECIMENOrdering Facility: [facility] Address: [address] [place] [address] Performed By: #### 5 8410-2 ####[facility] LABIA [id number] [place] [address] [place] Nucleated RBC (Bld) [#/Vol] 10*3/uL Normal <0.01 [facility] Comment on above: Order Comment: Speci men Type: BLOOD SPECIMENOrdering Facility: [facility] Address: [address] [place] [address] Performed By: #### 5 8410-2 ####[facility] LABIA [id number] [place] [address] [place] Platelet mean volume (Bld) [Entitic vol] 10.4 fL Normal 9.0-12.7 [facility] Comment on above: Order Comment: Speci men Type: BLOOD SPECIMENOrdering Facility: [facility] Address: [address] [place] [address] Performed By: #### 5 8410-2 ####[facility] LABCLIA [id number] [place] [address] [place] Platelets (Bld) [#/Vol] 240 10*3/uL Normal 150-400 [facility] Comment on above: Order Comment: Speci men Type: BLOOD SPECIMENOrdering Facility: [facility] Address: [address] [place] [address] Performed By: #### 5 8410-2 ####[facility] LABCLIA [id number] [place] [address] [place] RBC (Bld) [#/Vol] 3.44 10*6/uL Low 4.20-6.00 [facility] Comment on above: Order Comment: Speci men Type: BLOOD SPECIMENOrdering Facility: [facility] Address: [address] [place] [address] Performed By: #### 5 8410-2 ####[facility] LABCLIA [id number] [place] [address] [place] WBC (Bld) [#/Vol] 8.75 10*3/uL Normal 3.70-11.00 [facility] Comment on above: Order Comment: Speci men Type: BLOOD SPECIMENOrdering Facility: [facility] Address: [address] [place] [address] Performed By: #### 5 8410-2 ####[facility] LABCLIA [id number] [place] [address] [place] CYSTATIN Con 10-24-2024 Cystatin C [Mass/Vol] 1.63 mg/L High 0.61-0.95 [facility] Comment on above: Order Comment: Speci men Type: BLOOD SPECIMENOrdering Facility: [facility] Address: [address] [place] [address] Performed By: #### C YSTC, 09686-5, 17748-6 ####[facility] LABCLIA [id number] [place] [address] [place] CYSTATIN C EGFR 39 mL/min/1.73m??? Low >=60 [facility] Comment on above: Order Comment: Speci men Type: BLOOD SPECIMENOrdering Facility: [facility] Address: [address] [place] [address] Result Comment: Mary Kay mated Glomerular Filtration Rate (eGFR) is calculated using the 2012 CKD-EPI cystatin C equation. This equation utilizes serum cystatin C, sex, and age as parameters. The cystatin C assay has traceable calibration to the ERM-DA471/[facility] reference material. Refer to KDIGO guidelines for clinical interpretation. In patients with unstable renal function, e.g. those with acute kidney injury, the eGFR may not accurately reflect actual GFR. Performed By: #### C ALTHEA, , ####[facility] LABIA [id number] [place] [address] [place] Comprehensive metabolic 2000 panelon 10-24-2024 Albumin [Mass/Vol] 4.0 g/dL Normal 3.9-4.9 [facility] Comment on above: Order Comment: Speci men Type: BLOOD SPECIMENOrdering Facility: [facility] Address: [address] [place] [address] Performed By: #### C DENNYSTC, , ####[facility] LABIA [id number] [place] [address] [place] ALP [Catalytic activity/Vol] 47 U/L Normal 38-113 [facility] Comment on above: Order Comment: Speci men Type: BLOOD SPECIMENOrdering Facility: [facility] Address: [address] [place] [address] Performed By: #### C YSTC, , ####[facility] LABIA [id number] [place] [id number] [place] ALT [Catalytic activity/Vol] 32 U/L Normal 10-54 [facility] Comment on above: Order Comment: Speci men Type: BLOOD SPECIMENOrdering Facility: [facility] Address: [address] [place] [address] Performed By: #### C DENNYSTC, , ####[facility] LABCLIA [id number] [place] [id number] [place] Anion gap [Moles/Vol] 12 mmol/L Normal 8-15 [facility] Comment on above: Order Comment: Speci men Type: BLOOD SPECIMENOrdering Facility: [facility] Address: [address] [place] [address] Performed By: #### [place]us [place], , ####[facility] LABCLIA [id number] [place] [address] [place] AST [Catalytic activity/Vol] 39 U/L Normal 14-40 [facility] Comment on above: Order Comment: Speci men Type: BLOOD SPECIMENOrdering Facility: [facility] Address: [address] [place] [address] Performed By: #### [place], , ####[facility] LABCLIA [id number] [place] [address] [place] Bilirubin [Mass/Vol] 0.2 mg/dL Normal 0.2-1.3 [facility] Comment on above: Order Comment: Speci men Type: BLOOD SPECIMENOrdering Facility: [facility] Address: [address] [place] [address] Performed By: #### [place], , ####[facility] LABCLIA [id number] [place] [address] [place] Calcium [Mass/Vol] 9.0 mg/dL Normal 8.5-10.2 [facility] Comment on above: Order Comment: Speci men Type: BLOOD SPECIMENOrdering Facility: [facility] Address: [address] [place] [address] Performed By: #### [place], , ####[facility] LABCLIA [id number] [id number] [address] [place] Chloride [Moles/Vol] 102 mmol/L Normal 98-107 [facility] Comment on above: Order Comment: Speci men Type: BLOOD SPECIMENOrdering Facility: [facility] Address: [address] [place] [address] Performed By: #### C YSTC, 47885-7, ####[facility] LABCLIA [id number] [place] [address] [place] CO2 [Moles/Vol] 23 mmol/L Normal 22-30 [facility] Comment on above: Order Comment: Speci men Type: BLOOD SPECIMENOrdering Facility: [facility] Address: [address] [place] [address] Performed By: #### C YSTC, 78630-5, ####[facility] LABCLIA [id number] [place] [address] [place] Creatinine [Mass/Vol] 1.72 mg/dL High 0.73-1.22 [facility] Comment on above: Order Comment: Speci men Type: BLOOD SPECIMENOrdering Facility: [facility] Address: [address] [place] [address] Performed By: #### C YSTC, , ####[facility] LABIA [id number] [place] [address] [place] Creatinine and Glomerular filtration rate.predicted panel (S/P/Bld) 42 mL/min/1.73m??? Low >=60 [facility] Comment on above: Order Comment: Speci men Type: BLOOD SPECIMENOrdering Facility: [facility] Address: [address] [place] [address] Result Comment: Mary Kay mated Glomerular Filtration [...] GFR. Performed By: #### [place]us [place], , ####[facility] LABCLIA [id number] [place] [id number] [place] Glucose [Mass/Vol] 149 mg/dL High 74-99 [facility] Comment on above: Order Comment: Speci men Type: BLOOD SPECIMENOrdering Facility: [facility] Address: [address] [place] [address] Result Comment: The [place] Diabetes Association (ADA) provides guidance for cutoff [...] Standards of Medical Care in Diabetes 2016, [place] Diabetes Association. Diabetes Care. 2016.39(Suppl 1). Performed By: #### C ALTHEA, , ####[facility] LABCLIA [id number] [address] [address] [place] Potassium [Moles/Vol] 5.0 mmol/L Normal 3.7-5.1 [facility] Comment on above: Order Comment: Dahianai men Type: BLOOD SPECIMENOrdering Facility: [facility] Address: [address] [place] [address] Performed By: #### C ALTHEA, , ####[facility] LABIA [id number] [address] [address] [place] Protein [Mass/Vol] 6.5 g/dL Normal 6.3-8.0 [facility] Comment on above: Order Comment: Speci men Type: BLOOD SPECIMENOrdering Facility: [facility] Address: [address] [place] [address] Performed By: #### Linus [place], , ####[facility] LABCLIA [id number] [place] [id number] [place] Sodium [Moles/Vol] 137 mmol/L Normal 136-144 [facility] Comment on above: Order Comment: Speci men Type: BLOOD SPECIMENOrdering Facility: [facility] Address: [address] [place] [address] Performed By: #### Linus [place], , ####[facility] LABCLIA [id number] [place] [address] [place] Urea nitrogen [Mass/Vol] 27 mg/dL High 9-24 [facility] Comment on above: Order Comment: Speci men Type: BLOOD SPECIMENOrdering Facility: [facility] Address: [address] [place] [address] Performed By: #### Linus [place], , ####[facility] LABIA [id number] [place] [address] [place] Magnesium SerPl-mCncon 10-24 Magnesium [Mass/Vol] 2.0 mg/dL Normal 1.7-2.3 [facility] Comment on above: Order Comment: Speci men Type: BLOOD SPECIMENOrdering Facility: [facility] Address: [address] [place] [address] Performed By: #### Linus [place], , ####[facility] LABCLIA [id number] [place] [address] [place] PTT, ANTICOAGULANT THERAPYon 10-24-2024 aPTT Coag (PPP) [Time] 57.1 s High 23.0-32.4 [facility] Comment on above: Order Comment: Speci men Type: BLOOD SPECIMENOrdering Facility: [facility] Address: [address] [place] [address] Performed By: #### P TTAC ####[facility] LABCLIA [id number] [place] [address] [place] aPTT Coag (PPP) [Time] 78.6 s High 23.0-32.4 [facility] Comment on above: Order Comment: Speci men Type: BLOOD SPECIMENOrdering Facility: [facility] Address: [address] [place] [address] Performed By: #### P TTAC ####[facility] LABCLIA [id number] [address] [place] aPTT Coag (PPP) [Time] 62.6 s High 23.0-32.4 [facility] Comment on above: Order Comment: Speci men Type: BLOOD SPECIMENOrdering Facility: [facility] Address: [address] [place] [address] Performed By: #### P TTAC ####[facility] LABIA [id number] [place] [address] [place] Urinalysis complete panel (U )on 10-24-2024 Bacteria LM.HPF (Urine sed) [#/Area] Negative Normal Negative [facility] Comment on above: Order Comment: Speci men Type: URINE SPECIMENOrdering Facility: [facility] Address: [address] [place] [address] Performed By: #### 2 4356-8 ####[facility] LABCLIA [id number] [place] [address] [place] Bilirubin Ql (U) Negative Normal Negative [facility] Comment on above: Order Comment: Speci men Type: URINE SPECIMENOrdering Facility: [facility] Address: [address] [place] [address] Performed By: #### 2 4356-8 ####[facility] LABCLIA [id number] [place] [address] [place] Clarity (Unsp spec) Clear Normal Clear [facility] Comment on above: Order Comment: Speci men Type: URINE SPECIMENOrdering Facility: [facility] Address: [address] [place] [address] Performed By: #### 2 4356-8 ####[facility] LABCLIA [id number] [place] [address] [place] Color (U) Yellow Normal Yellow [facility] Comment on above: Order Comment: Speci men Type: URINE SPECIMENOrdering Facility: [facility] Address: [facility] [place] [place] [address] Performed By: #### 2 4356-8 ####[facility] LABCLIA [id number] [place] [address] [place] Epithelial cells LM.HPF (Urine sed) [#/Area] None Seen Normal [facility] Comment on above: Order Comment: Speci men Type: URINE SPECIMENOrdering Facility: [facility] Address: [address] [place] [address] Performed By: #### 2 4356-8 ####[facility] LABCLIA [id number] [place] [address] [place] Glucose Test strip (U) [Mass/Vol] Negative Normal Negative [facility] Comment on above: Order Comment: Speci men Type: URINE SPECIMENOrdering Facility: [facility] Address: [address] [place] [address] Performed By: #### 2 4356-8 ####[facility] LABCLIA [id number] [place] [address] [place] Hemoglobin Ql (U) Negative Normal Negative [facility] Comment on above: Order Comment: Speci men Type: URINE SPECIMENOrdering Facility: [facility] Address: [address] [place] [address] Performed By: #### 2 4356-8 ####[facility] LABCLIA [id number] [place] [address] [place] Hyaline casts (Urine sed) [#/Area] 0 /[LPF] Normal 0 /LPF [facility] Comment on above: Order Comment: Speci men Type: URINE SPECIMENOrdering Facility: [facility] Address: [address] [place] [address] Performed By: #### 2 4356-8 ####[facility] LABCLIA [id number] [place] [address] [place] Ketones Ql (U) Negative Normal Negative [facility] Comment on above: Order Comment: Speci men Type: URINE SPECIMENOrdering Facility: [facility] Address: [address] [place] [address] Performed By: #### 2 4356-8 ####[facility] LABCLIA [id number] [place] [address] [place] Leukocyte esterase Test strip Ql (U) Negative Normal Negative [facility] Comment on above: Order Comment: Speci men Type: URINE SPECIMENOrdering Facility: [facility] Address: [address] [place] [address] Performed By: #### 2 4356-8 ####[facility] LABCLIA [id number] [place] [address] [place] Nitrite Ql (U) Negative Normal Negative [facility] Comment on above: Order Comment: Speci men Type: URINE SPECIMENOrdering Facility: [facility] Address: [address] [place] [address] Performed By: #### 2 4356-8 ####[facility] LABCLIA [id number] [place] [address] [place] pH (U) 6.0 [pH] Normal <8.5 [facility] Comment on above: Order Comment: Speci men Type: URINE SPECIMENOrdering Facility: [facility] Address: [address] [place] [address] Performed By: #### 2 4356-8 ####[facility] LABIA [id number] [place] [address] [place] Protein (U) [Mass/Vol] Negative Normal Negative [facility] Comment on above: Order Comment: Speci men Type: URINE SPECIMENOrdering Facility: [facility] Address: [address] [place] [address] Performed By: #### 2 4356-8 ####[facility] LABIA [id number] [place] [address] [place] RBC LM.HPF (Urine sed) [#/Area] 0-2 /HPF Normal 0-2 /HPF [facility] Comment on above: Order Comment: Speci men Type: URINE SPECIMENOrdering Facility: [facility] Address: [address] [place] [address] Performed By: #### 2 4356-8 ####[facility] [id number] [place] [address] [place] Specific gravity (U) [Rel density] 1.018 Normal 1.005-1.030 [facility] Comment on above: Order Comment: Speci men Type: URINE SPECIMENOrdering Facility: [facility] Address: [address] [place] [address] Performed By: #### 2 4356-8 ####[facility] LABIA [id number] [place] [address] [place] Urobilinogen Ql (U) 0.2 EU/dL Normal 0.2-1.0 EU/dL [facility] Comment on above: Order Comment: Speci men Type: URINE SPECIMENOrdering Facility: [facility] Address: [address] [place] [address] Performed By: #### 2 4356-8 ####[facility] LABIA [id number] [place] [address] [place] WBC LM.HPF (Urine sed) [#/Area] 0-5 /HPF Normal 0-5 /HPF [facility] Comment on above: Order Comment: Speci men Type: URINE SPECIMENOrdering Facility: [facility] Address: [address] [place] [address] Performed By: #### 2 4356-8 ####[facility] LABIA [id number] [place] [address] [place] CASE MANAGEMon 10-23-2024 CASE MANAGEM Normal [facility] CBC panel Auto (Bld)on 10-23 Erythrocyte distribution width (RBC) [Ratio] 12.4 % Normal 11.5-15.0 [facility] Comment on above: Order Comment: Speci men Type: BLOOD SPECIMENOrdering Facility: [facility] Address: [address] [place] [address] Performed By: #### 5 8410-2 ####[facility] LABIA [id number] [place] [address] [place] Hematocrit (Bld) [Volume fraction] 29.1 % Low 39.0-51.0 [facility] Comment on above: Order Comment: Speci men Type: BLOOD SPECIMENOrdering Facility: [facility] Address: [address] [place] [address] Performed By: #### 5 8410-2 ####[facility] LABCLIA [id number] [place] [address] [place] Hemoglobin (Bld) [Mass/Vol] 9.5 g/dL Low 13.0-17.0 [facility] Comment on above: Order Comment: Speci men Type: BLOOD SPECIMENOrdering Facility: [facility] Address: [address] [place] [address] Performed By: #### 5 8410-2 ####[facility] LABIA [id number] [place] [address] [place] MCH (RBC) [Entitic mass] 29.3 pg Normal 26.0-34.0 [facility] Comment on above: Order Comment: Speci men Type: BLOOD SPECIMENOrdering Facility: [facility] Address: [address] [place] [address] Performed By: #### 5 8410-2 ####[facility] LABCLIA [id number] [place] [address] [place] MCHC (RBC) [Mass/Vol] 32.6 g/dL Normal 30.5-36.0 [facility] Comment on above: Order Comment: Speci men Type: BLOOD SPECIMENOrdering Facility: [facility] Address: [address] [place] [address] Performed By: #### 5 8410-2 ####[facility] LABCLIA [id number] [place] [address] [place] MCV (RBC) [Entitic vol] 89.8 fL Normal 80.0-100.0 [facility] Comment on above: Order Comment: Speci men Type: BLOOD SPECIMENOrdering Facility: [facility] Address: [address] [place] [address] Performed By: #### 5 8410-2 ####[facility] LABIA [id number] [place] [address] [place] Nucleated RBC (Bld) [#/Vol] 10*3/uL Normal <0.01 [facility] Comment on above: Order Comment: Speci men Type: BLOOD SPECIMENOrdering Facility: [facility] Address: [address] [place] [address] Performed By: #### 5 8410-2 ####[facility] LABCLIA [id number] [place] [address] [place] Platelet mean volume (Bld) [Entitic vol] 10.5 fL Normal 9.0-12.7 [facility] Comment on above: Order Comment: Speci men Type: BLOOD SPECIMENOrdering Facility: [facility] Address: [address] [place] [address] Performed By: #### 5 8410-2 ####[facility] LABIA [id number] [place] [address] [place] Platelets (Bld) [#/Vol] 212 10*3/uL Normal 150-400 [facility] Comment on above: Order Comment: Speci men Type: BLOOD SPECIMENOrdering Facility: [facility] Address: [address] [place] [address] Performed By: #### 5 8410-2 ####[facility] LABIA [id number] [place] [address] [place] RBC (Bld) [#/Vol] 3.24 10*6/uL Low 4.20-6.00 [facility] Comment on above: Order Comment: Speci men Type: BLOOD SPECIMENOrdering Facility: [facility] Address: [address] [place] [address] Performed By: #### 5 8410-2 ####[facility] LABIA [id number] [place] [address] [place] WBC (Bld) [#/Vol] 6.89 10*3/uL Normal 3.70-11.00 [facility] Comment on above: Order Comment: Speci men Type: BLOOD SPECIMENOrdering Facility: [facility] Address: [address] [place] [address] Performed By: #### 5 8410-2 ####[facility] LABIA [id number] [place] [address] [place] CONSULTon 10-23-2024 CONSULT Normal [facility] Comprehensive metabolic 2000 panelon 10-23-2024 Albumin [Mass/Vol] 4.1 g/dL Normal 3.9-4.9 [facility] Comment on above: Order Comment: Speci men Type: BLOOD SPECIMENOrdering Facility: [facility] Address: [address] [place] [address] Performed By: #### 1 9123-9, 35747-0 ####[facility] LABCLIA [id number] [place] [address] [place] ALP [Catalytic activity/Vol] 47 U/L Normal 38-113 [facility] Comment on above: Order Comment: Speci men Type: BLOOD SPECIMENOrdering Facility: [facility] Address: [address] [place] [address] Performed By: #### 1 23-9, 62460-6 ####[facility] LABCLIA [id number] [place] [address] [place] ALT [Catalytic activity/Vol] 22 U/L Normal 10-54 [facility] Comment on above: Order Comment: Speci men Type: BLOOD SPECIMENOrdering Facility: [facility] Address: [address] [place] [address] Performed By: #### 1 23-9, 39017-8 ####[facility] LABCLIA [id number] [place] [address] [place] Anion gap [Moles/Vol] 10 mmol/L Normal 8-15 [facility] Comment on above: Order Comment: Speci men Type: BLOOD SPECIMENOrdering Facility: [facility] Address: [address] [place] [address] Performed By: #### 1 23-9, 34982-4 ####[facility] LABCLIA [id number] [place] [address] [place] AST [Catalytic activity/Vol] 30 U/L Normal 14-40 [facility] Comment on above: Order Comment: Speci men Type: BLOOD SPECIMENOrdering Facility: [facility] Address: [address] [place] [address] Performed By: #### 1 9123-9, 90641-5 ####[facility] LABCLIA [id number] [place] [address] [place] Bilirubin [Mass/Vol] 0.3 mg/dL Normal 0.2-1.3 [facility] Comment on above: Order Comment: Speci men Type: BLOOD SPECIMENOrdering Facility: [facility] Address: [address] [place] [address] Performed By: #### 1 9123-9, 32390-8 ####[facility] LABCLIA [id number] [place] [address] [place] Calcium [Mass/Vol] 9.2 mg/dL Normal 8.5-10.2 [facility] Comment on above: Order Comment: Speci men Type: BLOOD SPECIMENOrdering Facility: [facility] Address: [address] [place] [address] Performed By: #### 1 9123-9, 47594-4 ####[facility] LABCLIA [id number] [place] [address] [place] Chloride [Moles/Vol] 103 mmol/L Normal 98-107 [facility] Comment on above: Order Comment: Speci men Type: BLOOD SPECIMENOrdering Facility: [facility] Address: [address] [place] [address] Performed By: #### 1 9123-9, 16575-1 ####[facility] LABCLIA [id number] [place] [address] [place] CO2 [Moles/Vol] 24 mmol/L Normal 22-30 [facility] Comment on above: Order Comment: Speci men Type: BLOOD SPECIMENOrdering Facility: [facility] Address: [address] [place] [address] Performed By: #### 1 9123-9, 08126-3 ####[facility] LABCLIA [id number] [place] [id number] [place] Creatinine [Mass/Vol] 1.87 mg/dL High 0.73-1.22 [facility] Comment on above: Order Comment: Jose Cruz johnson Type: BLOOD SPECIMENOrdering Facility: [facility] Address: [address] [place] [address] Performed By: #### 1 9123-9, 71269-8 ####[facility] LABCLIA [id number] [place] [address] [place] Creatinine and Glomerular filtration rate.predicted panel (S/P/Bld) 38 mL/min/1.73m??? Low >=60 [facility] Comment on above: Order Comment: Jose Cruz johnson Type: BLOOD SPECIMENOrdering Facility: [facility] Address: [address] [place] [address] Result Comment: Mary Kay mated Glomerular Filtration [...] actual GFR. Performed By: #### 1 9123-9, 27770-9 ####[facility] LABCLIA [id number] [place] [address] [place] Glucose [Mass/Vol] 90 mg/dL Normal 74-99 [facility] Comment on above: Order Comment: Jose Cruz johnson Type: BLOOD SPECIMENOrdering Facility: [facility] Address: [address] [place] [address] Result Comment: The [place] Diabetes Association (ADA) provides guidance for cutoff [...] Standards of Medical Care in Diabetes 2016, [place] Diabetes Association. Diabetes Care. 2016.39(Suppl 1). Performed By: #### 1 9123-9, 07460-3 ####[facility] LABCLIA [id number] [place] [address] [place] Potassium [Moles/Vol] 4.8 mmol/L Normal 3.7-5.1 [facility] Comment on above: Order Comment: Speci men Type: BLOOD SPECIMENOrdering Facility: [facility] Address: [address] [place] [address] Performed By: #### 1 23-9, 66099-0 ####[facility] LABIA [id number] [place] [address] [place] Protein [Mass/Vol] 7.0 g/dL Normal 6.3-8.0 [facility] Comment on above: Order Comment: Speci men Type: BLOOD SPECIMENOrdering Facility: [facility] Address: [address] [place] [address] Performed By: #### 1 239, 19961-7 ####[facility] LABIA [id number] [place] [address] [place] Sodium [Moles/Vol] 137 mmol/L Normal 136-144 [facility] Comment on above: Order Comment: Speci men Type: BLOOD SPECIMENOrdering Facility: [facility] Address: [address] [place] [address] Performed By: #### 1 23-9, 50168-3 ####[facility] LABIA [id number] [place] [id number] [place] Urea nitrogen [Mass/Vol] 25 mg/dL High 9-24 [facility] Comment on above: Order Comment: Speci men Type: BLOOD SPECIMENOrdering Facility: [facility] Address: [address] [place] [address] Performed By: #### 1 239, 56121-1 ####[facility] LABCLIA [id number] [place] [address] [place] Creat ?Tm Ur-mCncon 10-23-19 25 Creatinine (U) [Mass/Vol] 35.0 mg/dL Normal 20.0-300.0 [facility] Comment on above: Order Comment: Speci men Type: URINE SPECIMENOrdering Facility: [facility] Address: [address] [place] [address] Performed By: #### 2 695-5, 2890-2, 07630-6, 59784-4 ####[facility] LABIA [id number] [place] [address] [place] Magnesium SerPl-ncon 10-23 Magnesium [Mass/Vol] 2.1 mg/dL Normal 1.7-2.3 [facility] Comment on above: Order Comment: Speci men Type: BLOOD SPECIMENOrdering Facility: [facility] Address: [address] [place] [address] Performed By: #### 1 9123-9, 57325-8 ####[facility] [id number] [place] [address] [place] NM PET/CT CARD PERF REST/STR ESSon 10-23-2024 NM PET/CT CARD PERF REST/STRESS Normal [facility] NURSING PROGon 10-23-2024 NURSING PROG Normal [facility] Osmolality Uron 10-23-2024 Osmolality (U) [Osmolality] 237 mosm/kg Normal 50-1200 [facility] Comment on above: Order Comment: Speci men Type: URINE SPECIMENOrdering Facility: [facility] Address: [address] [place] [address] Performed By: #### 2 695-5, 2890-2, 15172-6, 35749-2 ####[facility] LABIA [id number] [place] [address] [place] PTT, ANTICOAGULANT THERAPYon 10-23-2024 aPTT Coag (PPP) [Time] 47.4 s High 23.0-32.4 [facility] Comment on above: Order Comment: Speci men Type: BLOOD SPECIMENOrdering Facility: [facility] Address: [address] [place] [address] Performed By: #### P TTAC ####[facility] LABCLIA [id number] [place] [address] [place] aPTT Coag (PPP) [Time] 84.5 s High 23.0-32.4 [facility] Comment on above: Order Comment: Speci men Type: BLOOD SPECIMENOrdering Facility: [facility] Address: [address] [place] [address] Performed By: #### P TTAC ####[facility] LABCLIA [id number] [place] [address] [place] aPTT Coag (PPP) [Time] 41.5 s High 23.0-32.4 [facility] Comment on above: Order Comment: Speci men Type: BLOOD SPECIMENOrdering Facility: [facility] Address: [address] [place] [address] Performed By: #### P TTAC ####[facility] LABCLIA [id number] [place] [address] [place] Prot/Creat Uron 10-23-2024 Protein/Creatinine (U) [Mass ratio] 0.17 mg/mg High <0.15 [facility] Comment on above: Order Comment: Speci men Type: URINE SPECIMENOrdering Facility: [facility] Address: [address] [place] [address] Result Comment: Adul t Proteinuria Categories:<0.15 mg/mg is considered normal to mildly increased0.15 - 0.50 mg/mg is considered moderately increased>0.50 mg/mg is considered severely increasedKDIGO. (2013). KDIGO 2012 Clinical Practice Guideline for the Evaluation and Management of Chronic Kidney Disease. Official Journal of the International Society of Nephrology, 3(1), 1-150. Performed By: #### 2 695-5, 2890-2, 48109-4, 75160-6 ####[facility] LABCLIA [id number] [place] [id number] [place] Protein/Creatinine (U) [Mass ratio]on 10-23-2024 Protein (U) [Mass/Vol] 6 mg/dL Normal 0-20 [facility] Comment on above: Order Comment: Speci men Type: URINE SPECIMENOrdering Facility: [facility] Address: [address] [place] [address] Performed By: #### 2 695-5, 2890-2, 67859-7, 91782-5 ####[facility] LABCLIA [id number] [place] [address] [place] Sodium ?Tm Ur-sCncon 025 Sodium Unsp time (U) [Moles/Vol] 52 mmol/L Normal 14-216 [facility] Comment on above: Order Comment: Speci men Type: URINE SPECIMENOrdering Facility: [facility] Address: [address] [place] [address] Performed By: #### 2 695-5, 2890-2, 45881-1, 09796-2 ####[facility] [id number] [place] [address] [place] CBC panel Auto (Bld)on 10-22 Erythrocyte distribution width (RBC) [Ratio] 12.3 % Normal 11.5-15.0 [facility] Comment on above: Order Comment: Speci men Type: BLOOD SPECIMENOrdering Facility: [facility] Address: [facility] [place] [address] Performed By: #### 5 8410-2, 51513-1 ####[facility] LABCLIA [id number] [place] [address] [place] Hematocrit (Bld) [Volume fraction] 28.3 % Low 39.0-51.0 [facility] Comment on above: Order Comment: Speci men Type: BLOOD SPECIMENOrdering Facility: [facility] Address: [address] [place] [address] Performed By: #### 5 8410-2, 66487-2 ####[facility] LABCLIA [id number] [place] [address] [place] Hemoglobin (Bld) [Mass/Vol] 8.9 g/dL Low 13.0-17.0 [facility] Comment on above: Order Comment: Speci men Type: BLOOD SPECIMENOrdering Facility: [facility] Address: [address] [place] [address] Performed By: #### 5 8410-2, 58397-8 ####[facility] LABCLIA [id number] [place] [address] [place] MCH (RBC) [Entitic mass] 29.4 pg Normal 26.0-34.0 [facility] Comment on above: Order Comment: Speci men Type: BLOOD SPECIMENOrdering Facility: [facility] Address: [address] [place] [address] Performed By: #### 5 8410-2, 65114-4 ####[facility]CLIA [id number] [place] [address] [place] MCHC (RBC) [Mass/Vol] 31.4 g/dL Normal 30.5-36.0 [facility] Comment on above: Order Comment: Speci men Type: BLOOD SPECIMENOrdering Facility: [facility] Address: [address] [place] [address] Performed By: #### 5 8410-2, 14378-1 ####[facility] LABCLIA [id number] [place] [address] [place] MCV (RBC) [Entitic vol] 93.4 fL Normal 80.0-100.0 [facility] Comment on above: Order Comment: Speci men Type: BLOOD SPECIMENOrdering Facility: [facility] Address: [address] [place] [address] Performed By: #### 5 8410-2, 89673-8 ####[facility] [id number] [place] [address] [place] Nucleated RBC (Bld) [#/Vol] 10*3/uL Normal <0.01 [facility] Comment on above: Order Comment: Speci men Type: BLOOD SPECIMENOrdering Facility: [facility] Address: [address] [place] [address] Performed By: #### 5 8410-2, 67645-0 ####[facility] [id number] [place] [address] [place] Platelet mean volume (Bld) [Entitic vol] 10.5 fL Normal 9.0-12.7 [facility] Comment on above: Order Comment: Speci men Type: BLOOD SPECIMENOrdering Facility: [facility] Address: [address] [place] [address] Performed By: #### 5 8410-2, 96810-1 ####[facility] [id number] [place] [address] [place] Platelets (Bld) [#/Vol] 191 10*3/uL Normal 150-400 [facility] Comment on above: Order Comment: Speci men Type: BLOOD SPECIMENOrdering Facility: [facility] Address: [address] [place] [address] Performed By: #### 5 8410-2, 70733-2 ####[facility] [id number] [place] [address] [place] RBC (Bld) [#/Vol] 3.03 10*6/uL Low 4.20-6.00 [facility] Comment on above: Order Comment: Speci men Type: BLOOD SPECIMENOrdering Facility: [facility] Address: [address] [place] [address] Performed By: #### 5 8410-2, 24064-9 ####[facility] LABCLIA [id number] [address] [address] [place] WBC (Bld) [#/Vol] 7.57 10*3/uL Normal 3.70-11.00 [facility] Comment on above: Order Comment: Speci men Type: BLOOD SPECIMENOrdering Facility: [facility] Address: [address] [place] [address] Performed By: #### 5 8410-2, 28341-2 ####[facility] [id number] [place] [address] [place] Comprehensive metabolic 2000 panelon 10-22-2024 Albumin [Mass/Vol] 3.6 g/dL Low 3.9-4.9 [facility] Comment on above: Order Comment: Speci men Type: BLOOD SPECIMENOrdering Facility: [facility] Address: [address] [place] [address] Performed By: #### 2 4323-8, ####[facility] [id number] [place] [address] [place] ALP [Catalytic activity/Vol] 45 U/L Normal 38-113 [facility] Comment on above: Order Comment: Speci men Type: BLOOD SPECIMENOrdering Facility: [facility] Address: [address] [place] [address] Performed By: #### 2 4323-8, ####[facility]IA [id number] [place] [id number] [place] ALT [Catalytic activity/Vol] 10 U/L Normal 10-54 [facility] Comment on above: Order Comment: Speci men Type: BLOOD SPECIMENOrdering Facility: [facility] Address: [address] [place] [address] Performed By: #### 2 4323-8, ####[facility] LABCLIA [id number] [place] [id number] [place] Anion gap [Moles/Vol] 12 mmol/L Normal 8-15 [facility] Comment on above: Order Comment: Speci men Type: BLOOD SPECIMENOrdering Facility: [facility] Address: [address] [place] [address] Performed By: #### 2 4323-8, ####[facility] LABCLIA [id number] [place] [address] [place] AST [Catalytic activity/Vol] 14 U/L Normal 14-40 [facility] Comment on above: Order Comment: Speci men Type: BLOOD SPECIMENOrdering Facility: [facility] Address: [address] [place] [address] Performed By: #### 2 4328, ####[facility] LABCLIA [id number] [place] [address] [place] Bilirubin [Mass/Vol] 0.3 mg/dL Normal 0.2-1.3 [facility] Comment on above: Order Comment: Speci men Type: BLOOD SPECIMENOrdering Facility: [facility] Address: [address] [place] [address] Performed By: #### 2 4323-8, ####[facility] LABCLIA [id number] [place] [address] [place] Calcium [Mass/Vol] 8.8 mg/dL Normal 8.5-10.2 [facility] Comment on above: Order Comment: Speci men Type: BLOOD SPECIMENOrdering Facility: [facility] Address: [address] [place] [address] Performed By: #### 2 4323-8, ####[facility] LABCLIA [id number] [place] [address] [place] Chloride [Moles/Vol] 102 mmol/L Normal 98-107 [facility] Comment on above: Order Comment: Speci men Type: BLOOD SPECIMENOrdering Facility: [facility] Address: [address] [place] [address] Performed By: #### 2 4323-8, ####[facility] LABCLIA [id number] [place] [id number] [place] CO2 [Moles/Vol] 22 mmol/L Normal 22-30 [facility] Comment on above: Order Comment: Speci men Type: BLOOD SPECIMENOrdering Facility: [facility] Address: [address] [place] [address] Performed By: #### 2 4323-8, ####[facility] LABCLIA [id number] [place] [address] [place] Creatinine [Mass/Vol] 1.74 mg/dL High 0.73-1.22 [facility] Comment on above: Order Comment: Speci men Type: BLOOD SPECIMENOrdering Facility: [facility] Address: [address] [place] [address] Performed By: #### 2 4323-8, ####[facility] [id number] [place] [address] [place] Creatinine and Glomerular filtration rate.predicted panel (S/P/Bld) 41 mL/min/1.73m??? Low >=60 [facility] Comment on above: Order Comment: Speci men Type: BLOOD SPECIMENOrdering Facility: [facility] Address: [address] [place] [address] Result Comment: Mary Kay mated Glomerular Filtration [...] actual GFR. Performed By: #### 2 4323-8, ####[facility] LABCLIA [id number] [place] [address] [place] Glucose [Mass/Vol] 148 mg/dL High 74-99 [facility] Comment on above: Order Comment: Speci men Type: BLOOD SPECIMENOrdering Facility: [facility] Address: [address] [place] [address] Result Comment: [place] Diabetes Association (ADA) provides guidance for cutoff [...] Standards of Medical Care in Diabetes 2016, [place] Diabetes Association. Diabetes Care. 2016.39(Suppl 1). Performed By: #### 2 4323-8, ####[facility] LABCLIA [id number] [place] [address] [place] Potassium [Moles/Vol] 5.1 mmol/L Normal 3.7-5.1 [facility] Comment on above: Order Comment: Speci men Type: BLOOD SPECIMENOrdering Facility: [facility] Address: [address] [place] [address] Performed By: #### 2 4323-8, ####[facility] [id number] [place] [id number] [place] Protein [Mass/Vol] 6.4 g/dL Normal 6.3-8.0 [facility] Comment on above: Order Comment: Speci men Type: BLOOD SPECIMENOrdering Facility: [facility] Address: [address] [place] [address] Performed By: #### 2 4323-8, ####[facility] LABCLIA [id number] [place] [id number] [place] Sodium [Moles/Vol] 136 mmol/L Normal 136-144 [facility] Comment on above: Order Comment: Speci men Type: BLOOD SPECIMENOrdering Facility: [facility] Address: [address] [place] [address] Performed By: #### 2 4323-8, ####[facility] LABCLIA [id number] [place] [address] [place] Urea nitrogen [Mass/Vol] 30 mg/dL High 9-24 [facility] Comment on above: Order Comment: Speci men Type: BLOOD SPECIMENOrdering Facility: [facility] Address: [address] [place] [address] Performed By: #### 2 4323-8, ####[facility] LABCLIA [id number] [place] [id number] [place] Magnesium SerPl-mCncon 10-22 Magnesium [Mass/Vol] 2.2 mg/dL Normal 1.7-2.3 [facility] Comment on above: Order Comment: Speci men Type: BLOOD SPECIMENOrdering Facility: [facility] Address: [address] [place] [address] Performed By: #### 2 4323-8, ####[facility] LABCLIA [id number] [place] [id number] [place] PTT, ANTICOAGULANT THERAPYon 10-22-2024 aPTT Coag (PPP) [Time] 51.0 s High 23.0-32.4 [facility] Comment on above: Order Comment: Speci men Type: BLOOD SPECIMENOrdering Facility: [facility] Address: [address] [place] [address] Performed By: #### P TTAC ####[facility] LABCLIA [id number] [place] [id number] [place] Retics #on 10-22-2024 Reticulocytes (Bld) [#/Vol] 0.22244 10*3/uL Normal 0.018-0.100 [facility] Comment on above: Order Comment: Speci men Type: BLOOD SPECIMENOrdering Facility: [facility] Address: [address] [place] [address] Performed By: #### 5 8410-2, 93341-6 ####[facility] LABCLIA [id number] [place] [address] [place] Reticulocytes (Bld) [#/Vol]o n 10-22-2024 Reticulocytes/100 RBC (Bld) 1.7 % Normal 0.4-2.0 [facility] Comment on above: Order Comment: Speci men Type: BLOOD SPECIMENOrdering Facility: [facility] Address: [address] [place] [address] Performed By: #### 5 8410-2, 42585-9 ####[facility]IA [id number] [place] [address] [place] CBC panel Auto (Bld)on 10-21 Erythrocyte distribution width (RBC) [Ratio] 12.5 % Normal 11.5-15.0 [facility] Comment on above: Order Comment: Speci men Type: BLOOD SPECIMENOrdering Facility: [facility] Address: [address] [place] [address] Performed By: #### 5 8410-2 ####[facility]IA [id number] [address] [place] Hematocrit (Bld) [Volume fraction] 28.8 % Low 39.0-51.0 [facility] Comment on above: Order Comment: Speci men Type: BLOOD SPECIMENOrdering Facility: [facility] Address: [address] [place] [address] Performed By: #### 5 8410-2 ####[facility]IA [id number] [place] [address] [place] Hemoglobin (Bld) [Mass/Vol] 9.2 g/dL Low 13.0-17.0 [facility] Comment on above: Order Comment: Speci men Type: BLOOD SPECIMENOrdering Facility: [facility] Address: [address] [place] [address] Performed By: #### 5 8410-2 ####[facility]IA [id number] [place] [address] [place] MCH (RBC) [Entitic mass] 29.3 pg Normal 26.0-34.0 [facility] Comment on above: Order Comment: Speci men Type: BLOOD SPECIMENOrdering Facility: [facility] Address: [address] [place] [address] Performed By: #### 5 8410-2 ####[facility] [id number] [place] [address] [place] MCHC (RBC) [Mass/Vol] 31.9 g/dL Normal 30.5-36.0 [facility] Comment on above: Order Comment: Speci men Type: BLOOD SPECIMENOrdering Facility: [facility] Address: [address] [place] [address] Performed By: #### 5 8410-2 ####[facility]IA [id number] [place] [address] [place] MCV (RBC) [Entitic vol] 91.7 fL Normal 80.0-100.0 [facility] Comment on above: Order Comment: Speci men Type: BLOOD SPECIMENOrdering Facility: [facility] Address: [address] [place] [address] Performed By: #### 5 8410-2 ####[facility]IA [id number] [place] [address] [place] Nucleated RBC (Bld) [#/Vol] 10*3/uL Normal <0.01 [facility] Comment on above: Order Comment: Speci men Type: BLOOD SPECIMENOrdering Facility: [facility] Address: [address] [place] [address] Performed By: #### 5 8410-2 ####[facility] LABCLIA [id number] [place] [address] [place] Platelet mean volume (Bld) [Entitic vol] 10.7 fL Normal 9.0-12.7 [facility] Comment on above: Order Comment: Speci men Type: BLOOD SPECIMENOrdering Facility: [facility] Address: [address] [place] [address] Performed By: #### 5 8410-2 ####[facility] LABCLIA [id number] [place] [address] [place] Platelets (Bld) [#/Vol] 186 10*3/uL Normal 150-400 [facility] Comment on above: Order Comment: Speci men Type: BLOOD SPECIMENOrdering Facility: [facility] Address: [address] [place] [address] Performed By: #### 5 8410-2 ####[facility] LABCLIA [id number] [place] [address] [place] RBC (Bld) [#/Vol] 3.14 10*6/uL Low 4.20-6.00 [facility] Comment on above: Order Comment: Speci men Type: BLOOD SPECIMENOrdering Facility: [facility] Address: [address] [place] [address] Performed By: #### 5 8410-2 ####[facility] LABCLIA [id number] [place] [address] [place] WBC (Bld) [#/Vol] 7.74 10*3/uL Normal 3.70-11.00 [facility] Comment on above: Order Comment: Speci men Type: BLOOD SPECIMENOrdering Facility: [facility] Address: [address] [place], [place] [address] Performed By: #### 5 8410-2 ####[facility] LABCLIA [id number] [address] [address] [place] Comprehensive metabolic 2000 panelon 10-21-2024 Albumin [Mass/Vol] 3.5 g/dL Low 3.9-4.9 [facility] Comment on above: Order Comment: Speci men Type: BLOOD SPECIMENOrdering Facility: [facility] Address: [address] [place] [address] Performed By: #### 2 4323-8, ####[facility] LABCLIA [id number] [place] [address] [place] ALP [Catalytic activity/Vol] 46 U/L Normal 38-113 [facility] Comment on above: Order Comment: Speci men Type: BLOOD SPECIMENOrdering Facility: [facility] Address: [address] [place], [place] [address] Performed By: #### 2 4323-8, ####[facility] LABCLIA [id number] [place] [address] [place] ALT [Catalytic activity/Vol] 11 U/L Normal 10-54 [facility] Comment on above: Order Comment: Speci men Type: BLOOD SPECIMENOrdering Facility: [facility] Address: [address] [place] [id number] Performed By: #### 2 4323-8, ####[facility] LABCLIA [id number] [place] [id number] [place] Anion gap [Moles/Vol] 11 mmol/L Normal 8-15 [facility] Comment on above: Order Comment: Speci men Type: BLOOD SPECIMENOrdering Facility: [facility] Address: [address] [place], [place] [address] Performed By: #### 2 4323-8, ####[facility] LABCLIA [id number] [place] [id number] [place] AST [Catalytic activity/Vol] 15 U/L Normal 14-40 [facility] Comment on above: Order Comment: Speci men Type: BLOOD SPECIMENOrdering Facility: [facility] Address: [address] [place] [address] Performed By: #### 2 432-8, ####[facility] LABCLIA [id number] [place] [address] [place] Bilirubin [Mass/Vol] 0.3 mg/dL Normal 0.2-1.3 [facility] Comment on above: Order Comment: Speci men Type: BLOOD SPECIMENOrdering Facility: [facility] Address: [address] [place] [address] Performed By: #### 2 4328, ####[facility] LABCLIA [id number] [place] [address] [place] Calcium [Mass/Vol] 8.8 mg/dL Normal 8.5-10.2 [facility] Comment on above: Order Comment: Speci men Type: BLOOD SPECIMENOrdering Facility: [facility] Address: [address] [place] [address] Performed By: #### 2 4328, ####[facility]CL[facility] [id number] [place] [id number] [place] Chloride [Moles/Vol] 101 mmol/L Normal 98-107 [facility] Comment on above: Order Comment: Speci men Type: BLOOD SPECIMENOrdering Facility: [facility] Address: [address] [place] [address] Performed By: #### 2 4323-8, ####[facility]CL[facility] [id number] [place] [id number] [place] CO2 [Moles/Vol] 24 mmol/L Normal 22-30 [facility] Comment on above: Order Comment: Speci men Type: BLOOD SPECIMENOrdering Facility: [facility] Address: [address] [place] [address] Performed By: #### 2 4323-8, ####[facility]CLIA [id number] [place] [address] [place] Creatinine [Mass/Vol] 1.96 mg/dL High 0.73-1.22 [facility] Comment on above: Order Comment: Speci men Type: BLOOD SPECIMENOrdering Facility: [facility] Address: [address] [place] [address] Performed By: #### 2 4328, ####[facility] LABCLIA [id number] [address] [place] [facility] Creatinine and Glomerular filtration rate.predicted panel (S/P/Bld) 36 mL/min/1.73m??? Low >=60 [facility] Comment on above: Order Comment: Speci men Type: BLOOD SPECIMENOrdering Facility: [facility] Address: [address] [place] [address] Result Comment: Mary Kay mated Glomerular Filtration [...] actual GFR. Performed By: #### 2 4323-8, ####[facility]CLIA [id number] [place] [address] [place] Glucose [Mass/Vol] 154 mg/dL High 74-99 [facility] Comment on above: Order Comment: Speci men Type: BLOOD SPECIMENOrdering Facility: [facility] Address: [address] [place] [address] Result Comment: The [place] Diabetes Association (ADA) provides guidance for cutoff [...] Standards of Medical Care in Diabetes 2016, [place] Diabetes Association. Diabetes Care. 2016.39(Suppl 1). Performed By: #### 2 4323-8, ####[facility] LABCLIA [id number] [place] [address] [place] Potassium [Moles/Vol] 4.8 mmol/L Normal 3.7-5.1 [facility] Comment on above: Order Comment: Speci men Type: BLOOD SPECIMENOrdering Facility: [facility] Address: [address] [place] [address] Performed By: #### 2 3-8, ####[facility]CL[facility] [id number] [place] [address] [place] Protein [Mass/Vol] 6.1 g/dL Low 6.3-8.0 [facility] Comment on above: Order Comment: Speci men Type: BLOOD SPECIMENOrdering Facility: [facility] Address: [address] [place] [address] Performed By: #### 2 4323-8, ####[facility] [id number] [place] [address] [place] Sodium [Moles/Vol] 136 mmol/L Normal 136-144 [facility] Comment on above: Order Comment: Speci men Type: BLOOD SPECIMENOrdering Facility: [facility] Address: [address] [place] [address] Performed By: #### 2 4323-8, 67008-5 ####[facility]CLIA [id number] [place] [address] [place] Urea nitrogen [Mass/Vol] 35 mg/dL High 9-24 [facility] Comment on above: Order Comment: Speci men Type: BLOOD SPECIMENOrdering Facility: [facility] Address: [address] [place] [address] Performed By: #### 2 4323-8, ####[facility] [id number] [place] [address] [place] Magnesium SerPl-mCncon 10-21 Magnesium [Mass/Vol] 2.3 mg/dL Normal 1.7-2.3 [facility] Comment on above: Order Comment: Speci men Type: BLOOD SPECIMENOrdering Facility: [facility] Address: [address] [place] [address] Performed By: #### 2 4323-8, ####[facility] [id number] [place] [address] [place] PTT, ANTICOAGULANT THERAPYon 10-21-2024 aPTT Coag (PPP) [Time] 54.1 s High 23.0-32.4 [facility] Comment on above: Order Comment: Speci men Type: BLOOD SPECIMENOrdering Facility: [facility] Address: [address] [place] [address] Performed By: #### P TTAC ####[facility] [id number] [place] [address] [place] aPTT Coag (PPP) [Time] 53.8 s High 23.0-32.4 [facility] Comment on above: Order Comment: Speci men Type: BLOOD SPECIMENOrdering Facility: [facility] Address: [address] [place] [address] Performed By: #### P TTAC ####[facility] LABCLIA [id number] [place] [address] [place] Prot/Creat Uron 10-21-2024 Protein/Creatinine (U) [Mass ratio] 0.26 mg/mg High <0.15 [facility] Comment on above: Order Comment: Speci men Type: URINE SPECIMENOrdering Facility: [facility] Address: [address] [place] [address] Result Comment: Adul t Proteinuria Categories:<0.15 mg/mg is considered normal to mildly increased0.15 - 0.50 mg/mg is considered moderately increased>0.50 mg/mg is considered severely increasedKDIGO. (2013). KDIGO 2012 Clinical Practice Guideline for the Evaluation and Management of Chronic Kidney Disease. Official Journal of the International Society of Nephrology, 3(1), 1-150. Performed By: #### 2 890-2, 32419-1 ####[facility]IA [id number] [place] [address] [place] Protein/Creatinine (U) [Mass ratio]on 10-21-2024 Creatinine (U) [Mass/Vol] 61.9 mg/dL Normal 20.0-300.0 [facility] Comment on above: Order Comment: Speci men Type: URINE SPECIMENOrdering Facility: [facility] Address: [address] [place] [address] Performed By: #### 2 890-2, 44250-5 ####[facility] [id number] [place] [address] [place] Protein (U) [Mass/Vol] 16 mg/dL Normal 0-20 [facility] [facility] Comment on above: Order Comment: Speci men Type: URINE SPECIMENOrdering Facility: [facility] Address: [address] [place] [address] Performed By: #### 2 890-2, 80852-6 ####[facility] LABIA [id number] [place] [address] [place] Sodium ?Tm Ur-sCncon 025 Sodium Unsp time (U) [Moles/Vol] 89 mmol/L Normal 14-216 [facility] Comment on above: Order Comment: Speci men Type: URINE SPECIMENOrdering Facility: [facility] Address: [address] [place] [address] Performed By: #### 2 890-2, 36593-0 ####[facility] LABCLIA [id number] [place] [address] [place] US RENAL ARTERY [facility] n 10-21-2024 [facility] Normal [facility] Bacteria Ur Culton 5 Bacteria identified Cx Nom (U) ORGANISM ID: 1 <10,000 CFU/ml Enterococcus faecalis Insignificant colony count. No further workup. Cephalosporins, clindamycin, and TMP-SMX are not effective for the treatment of enterococcal infections. Normal [facility] Comment on above: Performed By: #### 6 30-4 ####[facility] LABCLIA [id number] [place] [address] [place] CATECHOLAMINES FRAon 025 CATECHOLAMINE INTERPRETATION PLASMA See Note Normal [facility] Comment on above: Order Comment: Speci men Type: BLOOD SPECIMENOrdering Facility: [facility] Address: [address] [place] [address] Result Comment: INTE RPRETIVE INFORMATION: Catecholamines Panel, [...] gender-specific referenceintervals for this test in the [facility] Test Directory(ZeeWhere).This test was developed and its performance characteristicsdetermined by [employer]. It has not been cleared orapproved by the [place] Food and Drug Administration. This test wasperformed in a CLIA certified laboratory and is intended forclinical purposes.Performed By: [employer] [place], [place] [address]Iuslbpopne Director: Sandoval Gandhi MD, PhDCLIA Number: [id number] Performed By: #### P LCAT ####[facility] LABORATORIESCLIA [id number] [place] [address] DOPAMINE <130 Normal <=240 [facility] Comment on above: Order Comment: Speci men Type: BLOOD SPECIMENOrdering Facility: [facility] Address: [address] [place] [address] Result Comment: INTE RPRETIVE INFORMATION: DopamineSeated (15 min) less than or equal to 240 pmol/LSupine (30 min) less than or equal to 240 pmol/L Performed By: #### P LCAT ####[facility] LABORATORIESIA [id number] [place] [address] EPINEPHRINE (P) 303 pmol/L Normal <=330 [facility] Comment on above: Order Comment: Speci men Type: BLOOD SPECIMENOrdering Facility: [facility] Address: [address] [place] [address] Result Comment: INTE RPRETIVE INFORMATION:EpinephrineSeated (15 min) less than or equal to 330 pmol/LSupine (30 min) less than or equal to 265 pmol/L Performed By: #### P LCAT ####[facility] LABORATORIESCLIA [id number] [place] [address] NOREPINEPHRINE 1868 pmol/L Normal 2287-9914 [facility] Comment on above: Order Comment: Speci men Type: BLOOD SPECIMENOrdering Facility: [facility] Address: [address] [place] [address] Result Comment: INTE RPRETIVE INFORMATION: NorepinephrineSeated (15 min) 1050 - 4800 pmol/LSupine (30 min) 680 - 3100 pmol/L Performed By: #### P LCAT ####[facility] [id number] [place] [address] CBC panel Auto (Bld)on 10-20 Erythrocyte distribution width (RBC) [Ratio] 12.4 % Normal 11.5-15.0 [facility] Comment on above: Order Comment: Speci men Type: BLOOD SPECIMENOrdering Facility: [facility] Address: [address] [place] [address] Performed By: #### 5 8410-2 ####[facility]IA [id number] [place] [address] [place] Hematocrit (Bld) [Volume fraction] 31.5 % Low 39.0-51.0 [facility] Comment on above: Order Comment: Speci men Type: BLOOD SPECIMENOrdering Facility: [facility] Address: [address] [place] [address] Performed By: #### 5 8410-2 ####[facility] [id number] [place] [address] [place] Hemoglobin (Bld) [Mass/Vol] 10.1 g/dL Low 13.0-17.0 [facility] Comment on above: Order Comment: Speci men Type: BLOOD SPECIMENOrdering Facility: [facility] Address: [address] [place] [address] Performed By: #### 5 8410-2 ####[facility]IA [id number] [place] [address] [place] MCH (RBC) [Entitic mass] 29.5 pg Normal 26.0-34.0 [facility] Comment on above: Order Comment: Speci men Type: BLOOD SPECIMENOrdering Facility: [facility] Address: [address] [place] [address] Performed By: #### 5 8410-2 ####[facility]IA [id number] [place] [address] [place] MCHC (RBC) [Mass/Vol] 32.1 g/dL Normal 30.5-36.0 [facility] Comment on above: Order Comment: Speci men Type: BLOOD SPECIMENOrdering Facility: [facility] Address: [address] [place] [address] Performed By: #### 5 8410-2 ####[facility] LABCLIA [id number] [place] [address] [place] MCV (RBC) [Entitic vol] 92.1 fL Normal 80.0-100.0 [facility] Comment on above: Order Comment: Speci men Type: BLOOD SPECIMENOrdering Facility: [facility] Address: [address] [place] [address] Performed By: #### 5 8410-2 ####[facility] LABCLIA [id number] [place] [address] [place] Nucleated RBC (Bld) [#/Vol] 10*3/uL Normal <0.01 [facility] Comment on above: Order Comment: Speci men Type: BLOOD SPECIMENOrdering Facility: [facility] Address: [address] [place] [address] Performed By: #### 5 8410-2 ####[facility] LABCLIA [id number] [place] [address] [place] Platelet mean volume (Bld) [Entitic vol] 10.4 fL Normal 9.0-12.7 [facility] Comment on above: Order Comment: Speci men Type: BLOOD SPECIMENOrdering Facility: [facility] Address: [address] [place] [address] Performed By: #### 5 8410-2 ####[facility] LABCLIA [id number] [place] [address] [place] Platelets (Bld) [#/Vol] 198 10*3/uL Normal 150-400 [facility] Comment on above: Order Comment: Speci men Type: BLOOD SPECIMENOrdering Facility: [facility] Address: [address] [place] [address] Performed By: #### 5 8410-2 ####[facility] LABCLIA [id number] [place] [address] [place] RBC (Bld) [#/Vol] 3.42 10*6/uL Low 4.20-6.00 [facility] Comment on above: Order Comment: Speci men Type: BLOOD SPECIMENOrdering Facility: [facility] Address: [address] [place] [address] Performed By: #### 5 8410-2 ####[facility] LABIA [id number] [place] [address] [place] WBC (Bld) [#/Vol] 9.34 10*3/uL Normal 3.70-11.00 [facility] Comment on above: Order Comment: Speci men Type: BLOOD SPECIMENOrdering Facility: [facility] Address: [address] [place] [address] Performed By: #### 5 8410-2 ####[facility]IA [id number] [place] [address] [place] Comprehensive metabolic 2000 panelon 10-20-2024 Albumin [Mass/Vol] 3.7 g/dL Low 3.9-4.9 [facility] Comment on above: Order Comment: Speci men Type: BLOOD SPECIMENOrdering Facility: [facility] Address: [address] [place] [address] Performed By: #### 1 9123-9, 2777-1, 13422-7 ####[facility] [id number] [place] [address] [place] ALP [Catalytic activity/Vol] 45 U/L Normal 38-113 [facility] Comment on above: Order Comment: Speci men Type: BLOOD SPECIMENOrdering Facility: [facility] Address: [address] [place] [address] Performed By: #### 1 9123-9, 27703-20, 72046-4 ####[facility] LABCLIA [id number] [place] [address] [place] ALT [Catalytic activity/Vol] 13 U/L Normal 10-54 [facility] Comment on above: Order Comment: Speci men Type: BLOOD SPECIMENOrdering Facility: [facility] Address: [address] [place] [address] Performed By: #### 1 9123-9, 27703-20, 62405-9 ####[facility]IA [id number] [place] [address] [place] Anion gap [Moles/Vol] 10 mmol/L Normal 8-15 [facility] Comment on above: Order Comment: Speci men Type: BLOOD SPECIMENOrdering Facility: [facility] Address: [address] [place] [address] Performed By: #### 1 9123-9, 27703-20, 05178-9 ####[facility]IA [id number] [place] [address] [place] AST [Catalytic activity/Vol] 19 U/L Normal 14-40 [facility] Comment on above: Order Comment: Speci men Type: BLOOD SPECIMENOrdering Facility: [facility] Address: [address] [place] [address] Performed By: #### 1 9123-9, 27703-20, 58664-7 ####[facility] LABIA [id number] [place] [id number] [place] Bilirubin [Mass/Vol] 0.4 mg/dL Normal 0.2-1.3 [facility] Comment on above: Order Comment: Speci men Type: BLOOD SPECIMENOrdering Facility: [facility] Address: [address] [place] [address] Performed By: #### 1 9123-9, 2776-09, ####[facility]CL[facility] [id number] [facility] [address] [address] [place] Calcium [Mass/Vol] 8.7 mg/dL Normal 8.5-10.2 [facility] Comment on above: Order Comment: Speci men Type: BLOOD SPECIMENOrdering Facility: [facility] Address: [address] [place] [address] Performed By: #### 1 9123-9, 2776-09, ####[facility] LABCLIA [id number] [place] [id number] [place] Chloride [Moles/Vol] 101 mmol/L Normal 98-107 [facility] Comment on above: Order Comment: Speci men Type: BLOOD SPECIMENOrdering Facility: [facility] Address: [address] [place] [address] Performed By: #### 1 9123-9, 2776-09, ####[facility] LABCLIA [id number] [place] [address] [place] CO2 [Moles/Vol] 26 mmol/L Normal 22-30 [facility] Comment on above: Order Comment: Speci men Type: BLOOD SPECIMENOrdering Facility: [facility] Address: [address] [place], [place] [address] Performed By: #### 1 9123-9, 2776-09, ####[facility]CLIA [id number] [facility] [address] [address] [place] Creatinine [Mass/Vol] 1.78 mg/dL High 0.73-1.22 [facility] Comment on above: Order Comment: Speci men Type: BLOOD SPECIMENOrdering Facility: [facility] Address: [address] [place], [place] [address] Performed By: #### 1 9123-9, 27703-20, ####[facility] LABCLIA [id number] [address] [place] Creatinine and Glomerular filtration rate.predicted panel (S/P/Bld) 40 mL/min/1.73m??? Low >=60 [facility] Comment on above: Order Comment: Jose Cruz johnson Type: BLOOD SPECIMENOrdering Facility: [facility] Address: [address] [place] [address] Result Comment: Mary Kay mated Glomerular Filtration [...] GFR. Performed By: #### 1 9123-9, 2777-1, 38726-0 ####[facility] LABIA [id number] [place] [address] [place] Glucose [Mass/Vol] 110 mg/dL High 74-99 [facility] Comment on above: Order Comment: Jose Cruz johnson Type: BLOOD SPECIMENOrdering Facility: [facility] Address: [address] [place] [address] Result Comment: The [place] Diabetes Association (ADA) provides guidance for cutoff [...] Standards of Medical Care in Diabetes 2016, [place] Diabetes Association. Diabetes Care. 2016.39(Suppl 1). Performed By: #### 1 9123-9, 2777-1, 36862-0 ####[facility] LABIA [id number] [place] [id number] [place] Potassium [Moles/Vol] 4.8 mmol/L Normal 3.7-5.1 [facility] Comment on above: Order Comment: Speci men Type: BLOOD SPECIMENOrdering Facility: [facility] Address: [address] [place] [address] Performed By: #### 1 9123-9, 2777-1, 29650-2 ####[facility] LABCLIA [id number] [place] [address] [place] Protein [Mass/Vol] 6.4 g/dL Normal 6.3-8.0 [facility] Comment on above: Order Comment: Speci men Type: BLOOD SPECIMENOrdering Facility: [facility] Address: [address] [place] [address] Performed By: #### 1 9123-9, 2771, 08685-9 ####[facility] LABCLIA [id number] [place] [address] [place] Sodium [Moles/Vol] 137 mmol/L Normal 136-144 [facility] Comment on above: Order Comment: Speci men Type: BLOOD SPECIMENOrdering Facility: [facility] Address: [address] [place] [address] Performed By: #### 1 9123-9, 27703-20, 53816-0 ####[facility] LABCLIA [id number] [place] [address] [place] Urea nitrogen [Mass/Vol] 31 mg/dL High 9-24 [facility] Comment on above: Order Comment: Speci men Type: BLOOD SPECIMENOrdering Facility: [facility] Address: [address] [place] [address] Performed By: #### 1 9123-9, 277-1, 77753-3 ####[facility] LABCLIA [id number] [place] [id number] [place] ECG COMPLETEon 10-20-2024 ECG COMPLETE Normal [facility] ECG COMPLETE Normal [facility] METANEPHRINES RAN URon 10-20 Metanephrine/Creati nine (U) [Mass ratio] 346 ug/g creat Normal 100-677 [facility] Comment on above: Order Comment: Speci men Type: URINE SPECIMENOrdering Facility: [facility] Address: [address] [place] [address] Result Comment: Urin e Metanephrine test performed by Liquid Chromatography Tandem Mass Spectrometry (LC-MS/MS). Results obtained with different methods or kits cannot be used interchangeably.This test was developed, and its performance characteristics determined by the [facility] Department of Pathology and Laboratory Medicine. It has not been cleared or approved by the FDA. The [facility] Department of Pathology and Laboratory Medicine is regulated under CLIA as qualified to perform high-complexity testing. This test is used for clinical purposes. It should not be regarded as investigational or for research. Performed By: #### L [id number] ####[facility] [id number] [place] [address] [place] Normetanephrine/Cre atinine (U) [Mass ratio] 200 ug/g creat Normal 100-450 [facility] Comment on above: Order Comment: Speci men Type: URINE SPECIMENOrdering Facility: [facility] Address: [address] [place] [address] Performed By: #### L [id number] ####[facility] [id number] [place] [address] [place] Magnesium SerPl-mCncon 10-20 Magnesium [Mass/Vol] 2.4 mg/dL High 1.7-2.3 [facility] Comment on above: Order Comment: Speci men Type: BLOOD SPECIMENOrdering Facility: [facility] Address: [address] [place] [address] Performed By: #### 1 9123-9, 2777-1, 98881-6 ####[facility] LABIA [id number] [place] [address] [place] PT panel Coag (PPP)on 2024 INR Coag (PPP) [Relative time] 1.0 {INR} Normal 0.9-1.3 [facility] Comment on above: Order Comment: Jose Cruz johnson Type: BLOOD SPECIMENOrdering Facility: [facility] Address: [address] [place] [address] Result Comment: Antionette min K Antagonist (VKA) Therapeutic Range: INR 2 to 3 (Target INR of 2.5)Note: For patients treated with VKA drugs, such as warfarin, the [place] College [employer]icians 2012 Guideline recommends [...] al. Chest 2012, 141:7S-47SNishimura RA, et al. [facility] 2017, 70: 252-289 Performed By: #### 3 4528-0, PTTAC ####[facility] LABCLIA [id number] [place] [address] [place] PT Coag (PPP) [Time] 10.7 s Normal 9.7-13.0 [facility] Comment on above: Order Comment: Jose Cruz johnson Type: BLOOD SPECIMENOrdering Facility: [facility] Address: [address] [place] [id number] Performed By: #### 3 4528-0, PTTAC ####[facility] LABCLIA [id number] [place] [address] [place] PTT, ANTICOAGULANT THERAPYon 10-20-2024 aPTT Coag (PPP) [Time] 36.5 s High 23.0-32.4 [facility] Comment on above: Order Comment: Speci men Type: BLOOD SPECIMENOrdering Facility: [facility] Address: [address] [place] [address] Performed By: #### P TTAC ####[facility] LABCLIA [id number] [place] [address] [place] aPTT Coag (PPP) [Time] 53.0 s High 23.0-32.4 [facility] Comment on above: Order Comment: Speci men Type: BLOOD SPECIMENOrdering Facility: [facility] Address: [address] [place] [address] Performed By: #### P TTAC ####[facility] LABCLIA [id number] [place] [address] [place] aPTT Coag (PPP) [Time] 120.6 s High 23.0-32.4 [facility] Comment on above: Order Comment: Speci men Type: BLOOD SPECIMENOrdering Facility: [facility] Address: [address] [place] [address] Result Comment: Resu lt rechecked.Sample checked for clot. Performed By: #### 3 4528-0, PTTAC ####[facility] LABCLIA [id number] [place] [address] [place] Phosphate SerPl-mCncon 10-20 Phosphate [Mass/Vol] 5.2 mg/dL High 2.7-4.8 [facility] Comment on above: Order Comment: Speci men Type: BLOOD SPECIMENOrdering Facility: [facility] Address: [address] [place] [address] Performed By: #### 1 9123-9, 2777-1, 05147-6 ####[facility] LABCLIA [id number] [place] [address] [place] THERAPY NTon 10-20-2024 THERAPY NT Normal [facility] THERAPY NT Normal [facility] THERAPY NT Normal [facility] Urinalysis complete panel (U )on 10-20-2024 Bacteria LM.HPF (Urine sed) [#/Area] Negative Normal Negative [facility] Comment on above: Order Comment: Speci men Type: URINE SPECIMENOrdering Facility: [facility] Address: [address] [place] [address] Performed By: #### 2 4356-8 ####[facility] LABCLIA [id number] [place] [address] [place] Bilirubin Ql (U) Negative Normal Negative [facility] Comment on above: Order Comment: Speci men Type: URINE SPECIMENOrdering Facility: [facility] Address: [address] [place] [address] Performed By: #### 2 4356-8 ####[facility] LABCLIA [id number] [place] [address] [place] Clarity (Unsp spec) Clear Normal Clear [facility] Comment on above: Order Comment: Speci men Type: URINE SPECIMENOrdering Facility: [facility] Address: [address] [place] [address] Performed By: #### 2 4356-8 ####[facility] LABCLIA [id number] [place] [address] [place] Color (U) Yellow Normal Yellow [facility] Comment on above: Order Comment: Speci men Type: URINE SPECIMENOrdering Facility: [facility] Address: [address] [place] [address] Performed By: #### 2 4356-8 ####[facility] LABCLIA [id number] [place] [address] [place] Epithelial cells LM.HPF (Urine sed) [#/Area] None Seen Normal [facility] Comment on above: Order Comment: Speci men Type: URINE SPECIMENOrdering Facility: [facility] Address: [address] [place] [address] Performed By: #### 2 4356-8 ####[facility] LABCLIA [id number] [place] [address] [place] Glucose Test strip (U) [Mass/Vol] Negative Normal Negative [facility] Comment on above: Order Comment: Speci men Type: URINE SPECIMENOrdering Facility: [facility] Address: [address] [place] [address] Performed By: #### 2 4356-8 ####[facility] LABCLIA [id number] [place] [address] [place] Hemoglobin Ql (U) Negative Normal Negative [facility] Comment on above: Order Comment: Speci men Type: URINE SPECIMENOrdering Facility: [facility] Address: [address] [place] [address] Performed By: #### 2 4356-8 ####[facility] LABCLIA [id number] [place] [address] [place] Hyaline casts (Urine sed) [#/Area] 1-3 /LPF Abnormal 0 /LPF [facility] Comment on above: Order Comment: Speci men Type: URINE SPECIMENOrdering Facility: [facility] Address: [address] [place] [address] Performed By: #### 2 4356-8 ####[facility] LABCLIA [id number] [place] [address] [place] Ketones Ql (U) Negative Normal Negative [facility] Comment on above: Order Comment: Speci men Type: URINE SPECIMENOrdering Facility: [facility] Address: [address] [place] [address] Performed By: #### 2 4356-8 ####[facility] LABCLIA [id number] [place] [address] [place] Leukocyte esterase Test strip Ql (U) Negative Normal Negative [facility] Comment on above: Order Comment: Speci men Type: URINE SPECIMENOrdering Facility: [facility] Address: [address] [place] [address] Performed By: #### 2 4356-8 ####[facility] LABCLIA [id number] [place] [address] [place] Nitrite Ql (U) Negative Normal Negative [facility] Comment on above: Order Comment: Speci men Type: URINE SPECIMENOrdering Facility: [facility] Address: [address] [place] [address] Performed By: #### 2 4356-8 ####[facility] LABIA [id number] [place] [address] [place] pH (U) 6.0 [pH] Normal <8.5 [facility] Comment on above: Order Comment: Speci men Type: URINE SPECIMENOrdering Facility: [facility] Address: [address] [place] [address] Performed By: #### 2 4356-8 ####[facility] LABIA [id number] [place] [address] [place] Protein (U) [Mass/Vol] Negative Normal Negative [facility] Comment on above: Order Comment: Speci men Type: URINE SPECIMENOrdering Facility: [facility] Address: [address] [place] [address] Performed By: #### 2 4356-8 ####[facility] LABIA [id number] [place] [address] [place] RBC LM.HPF (Urine sed) [#/Area] 0-2 /HPF Normal 0-2 /HPF [facility] Comment on above: Order Comment: Speci men Type: URINE SPECIMENOrdering Facility: [facility] Address: [address] [place] [address] Performed By: #### 2 4356-8 ####[facility]IA [id number] [place] [address] [place] Specific gravity (U) [Rel density] 1.012 Normal 1.005-1.030 [facility] Comment on above: Order Comment: Speci men Type: URINE SPECIMENOrdering Facility: [facility] Address: [address] [place] [address] Performed By: #### 2 4356-8 ####[facility]IA [id number] [place] [address] [place] Urobilinogen Ql (U) 0.2 EU/dL Normal 0.2-1.0 EU/dL [facility] Comment on above: Order Comment: Speci men Type: URINE SPECIMENOrdering Facility: [facility] Address: [address] [place] [address] Performed By: #### 2 4356-8 ####[facility] [id number] [place] [address] [place] WBC LM.HPF (Urine sed) [#/Area] 0-5 /HPF Normal 0-5 /HPF [facility] Comment on above: Order Comment: Speci men Type: URINE SPECIMENOrdering Facility: [facility] Address: [address] [place] [address] Performed By: #### 2 4356-8 ####[facility] [id number] [place] [address] [place] CASE MGT INIT ASSESon 2024 CASE MGT INIT ASSES Normal [facility] ECG COMPLETEon 10-19-2024 ECG COMPLETE Normal [facility] ECHO LIMITEDon 10-19-2024 ECHO LIMITED Normal [facility] Ferritin SerPl-mCncon 2024 Ferritin [Mass/Vol] 70.0 ng/mL Normal 30.3-565.7 [facility] Comment on above: Order Comment: Speci men Type: BLOOD SPECIMENOrdering Facility: [facility] Address: [address] [place] [address] Performed By: #### H STNT, 07963-4, 60174-4, 2276-4 ####[facility] [id number] [place] [address] [place] Gas and Carbon monoxide pane l (BldV)on 10-19-2024 Base excess Calc (BldV) [Moles/Vol] 4 mmol/L High 0-2 [facility] Comment on above: Order Comment: Speci men Type: VENOUS BLOOD SPECIMENOrdering Facility: [facility] Address: [address] [place] [address] Performed By: #### 2 4344-4 ####[facility] [id number] [place] [address] [place] Body temperature 98.6 [degF] Normal [facility] Comment on above: Order Comment: Speci men Type: VENOUS BLOOD SPECIMENOrdering Facility: [facility] Address: [address] [place] [address] Performed By: #### 2 4344-4 ####[facility] [id number] [place] [address] [place] Calcium.ionized (Bld) [Mass/Vol] 1.18 mmol/L Normal 1.08-1.30 [facility] Comment on above: Order Comment: Speci men Type: VENOUS BLOOD SPECIMENOrdering Facility: [facility] Address: [address] [place] [address] Performed By: #### 2 4344-4 ####[facility] [id number] [place] [address] [place] Calcium.ionized adjusted to pH 7.4 (BldA) [Moles/Vol] 1.17 mmol/L Normal 1.08-1.30 [facility] Comment on above: Order Comment: Speci men Type: VENOUS BLOOD SPECIMENOrdering Facility: [facility] Address: [address] [place] [address] Performed By: #### 2 4344-4 ####[facility] [id number] [place] [address] [place] Carboxyhemoglobin (BldV) [Mass fraction] 0.9 % Normal 0.0-2.0 [facility] Comment on above: Order Comment: Speci men Type: VENOUS BLOOD SPECIMENOrdering Facility: [facility] Address: [address] [place] [address] Result Comment: Carb oxyhemoglobin Reference Range for Smokers: 2.0-8.0% Performed By: #### 2 4344-4 ####[facility] [id number] [place] [address] [place] CO2 (BldV) [Partial pressure] 49 mm[Hg] Normal 42-55 [facility] Comment on above: Order Comment: Speci men Type: VENOUS BLOOD SPECIMENOrdering Facility: [facility] Address: [address] [place] [address] Performed By: #### 2 4344-4 ####[facility] [id number] [place] [address] [place] Glucose [Mass/Vol] 212 mg/dL High 60-105 [facility] Comment on above: Order Comment: Speci men Type: VENOUS BLOOD SPECIMENOrdering Facility: [facility] Address: [address] [place] [address] Performed By: #### 2 4344-4 ####[facility] [id number] [place] [address] [place] HCO3 (Bld) [Moles/Vol] 29 mmol/L High 24-28 [facility] Comment on above: Order Comment: Speci men Type: VENOUS BLOOD SPECIMENOrdering Facility: [facility] Address: [address] [place] [address] Performed By: #### 2 4344-4 ####[facility] [id number] [place] [address] [place] Hematocrit (Bld) [Volume fraction] 30.0 % Low 39.0-51.0 [facility] Comment on above: Order Comment: Speci men Type: VENOUS BLOOD SPECIMENOrdering Facility: [facility] Address: [address] [place] [address] Performed By: #### 2 4344-4 ####[facility] [id number] [place] [address] [place] Hemoglobin (Bld) [Mass/Vol] 9.7 g/dL Low 13.0-17.0 [facility] Comment on above: Order Comment: Speci men Type: VENOUS BLOOD SPECIMENOrdering Facility: [facility] Address: [address] [place] [address] Performed By: #### 2 4344-4 ####[facility] [id number] [place] [address] [place] Lactate [Moles/Vol] 1.8 mmol/L Normal 0.5-2.2 [facility] Comment on above: Order Comment: Speci men Type: VENOUS BLOOD SPECIMENOrdering Facility: [facility] Address: [address] [place] [address] Performed By: #### 2 4344-4 ####[facility] [id number] [place] [address] [place] LITERS 3 Liters/min Normal [facility] Comment on above: Order Comment: Speci men Type: VENOUS BLOOD SPECIMENOrdering Facility: [facility] Address: [address] [place] [address] Performed By: #### 2 4344-4 ####[facility] [id number] [place] [address] [place] Methemoglobin (Bld) [Mass fraction] 1.1 % Normal 0.0-1.5 [facility] Comment on above: Order Comment: Speci men Type: VENOUS BLOOD SPECIMENOrdering Facility: [facility] Address: [address] [place] [address] Performed By: #### 2 4344-4 ####[facility] [id number] [address] [address] [place] O2 THERAPY NC = Nasal Cannula Normal [facility] Comment on above: Order Comment: Speci men Type: VENOUS BLOOD SPECIMENOrdering Facility: [facility] Address: [address] [place], [place] [address] Performed By: #### 2 4344-4 ####[facility] [id number] [address] [address] [place] Oxygen (BldV) [Partial pressure] 47 mm[Hg] High 35-45 [facility] Comment on above: Order Comment: Speci men Type: VENOUS BLOOD SPECIMENOrdering Facility: [facility] Address: [address] [place], [place] [address] Performed By: #### 2 4344-4 ####[facility] [id number] [address] [address] [place] Oxygen saturation in Venous blood 80 % Normal 60-85 [facility] Comment on above: Order Comment: Speci men Type: VENOUS BLOOD SPECIMENOrdering Facility: [facility] Address: [address] [place] [address] Performed By: #### 2 4344-4 ####[facility] [id number] [address] [address] [place] Oxyhemoglobin (BldV) [Mass fraction] 78 % Normal 60-85 [facility] Comment on above: Order Comment: Speci men Type: VENOUS BLOOD SPECIMENOrdering Facility: [facility] Address: [address] [place] [address] Performed By: #### 2 4344-4 ####[facility] [id number] [address] [address] [place] pH (BldV) 7.39 [pH] Normal 7.32-7.42 [facility] Comment on above: Order Comment: Speci men Type: VENOUS BLOOD SPECIMENOrdering Facility: [facility] Address: [address] [place] [address] Performed By: #### 2 4344-4 ####[facility] [id number] [address] [address] [place] Potassium [Moles/Vol] 5.0 mmol/L Normal 3.5-5.0 [facility] Comment on above: Order Comment: Speci men Type: VENOUS BLOOD SPECIMENOrdering Facility: [facility] Address: [address] [place] [address] Performed By: #### 2 4344-4 ####[facility] [id number] [place] [address] [place] Sodium [Moles/Vol] 138 mmol/L Normal 136-144 [facility] Comment on above: Order Comment: Speci men Type: VENOUS BLOOD SPECIMENOrdering Facility: [facility] Address: [address] [place] [address] Performed By: #### 2 4344-4 ####[facility] [id number] [place] [address] [place] HIGH SENSITIVITY TROPONIN To n 10-19-2024 Troponin T.cardiac High sensitivity method [Mass/Vol] 162 ng/L High <12 [facility] Comment on above: Order Comment: Speci men Type: BLOOD SPECIMENOrdering Facility: [facility] Address: [address] [place] [address] Performed By: #### H STNT ####[facility] [id number] [place] [address] [place] Troponin T.cardiac High sensitivity method [Mass/Vol] 222 ng/L High <12 [facility] Comment on above: Order Comment: Speci men Type: BLOOD SPECIMENOrdering Facility: [facility] Address: [address] [place] [address] Performed By: #### H STNT ####[facility] [id number] [place] [address] [place] Troponin T.cardiac High sensitivity method [Mass/Vol] 235 ng/L High <12 [facility] Comment on above: Order Comment: Speci men Type: BLOOD SPECIMENOrdering Facility: [facility] Address: [address] [place] [address] Performed By: #### H STNT ####[facility] [id number] [place] [address] [place] Troponin T.cardiac High sensitivity method [Mass/Vol] 124 ng/L High <12 [facility] Comment on above: Order Comment: Speci men Type: BLOOD SPECIMENOrdering Facility: [facility] Address: [address] [place] [address] Performed By: #### H STNT, 28843-3, 26493-6, 2275-4 ####[facility] [id number] [place] [address] [place] Iron and Iron binding capaci ty panel 10-19-2024 Iron [Mass/Vol] 70 ug/dL Normal 41-186 [facility] Comment on above: Order Comment: Speci men Type: BLOOD SPECIMENOrdering Facility: [facility] Address: [address] [place] [address] Performed By: #### H STNT, 09097-2, 43872-5, 2275-4 ####[facility] [id number] [place] [address] [place] Iron binding capacity [Mass/Vol] 316 ug/dL Normal 232-386 [facility] Comment on above: Order Comment: Speci men Type: BLOOD SPECIMENOrdering Facility: [facility] Address: [address] [place] [address] Performed By: #### H STNT, 78162-0, 09852-1, 6-4 ####[facility] [id number] [place] [id number] [place] Iron/TIBC [Molar ratio] 22.2 % Normal 15.0-57.0 [facility] Comment on above: Order Comment: Speci men Type: BLOOD SPECIMENOrdering Facility: [facility] Address: [address] [place] [address] Performed By: #### H STNT, 94127-0, 00513-8, 2276-4 ####[facility] [id number] [place] [address] [place] Magnesium SerPl-mCncon 10-19 Magnesium [Mass/Vol] 2.9 mg/dL High 1.7-2.3 [facility] Comment on above: Order Comment: Speci men Type: BLOOD SPECIMENOrdering Facility: [facility] Address: [address] [place] [address] Result Comment: Resu lt rechecked. Performed By: #### H STNT, 46723-4, 27388-4, 6-4 ####[facility] [id number] [place] [id number] [place] PTT, ANTICOAGULANT THERAPYon 10-19-2024 aPTT Coag (PPP) [Time] 76.0 s High 23.0-32.4 [facility] Comment on above: Order Comment: Speci men Type: BLOOD SPECIMENOrdering Facility: [facility] Address: [address] [place] [address] Performed By: #### P TTAC ####[facility] [id number] [place] [address] [place] Urinalysis complete panel (U )on 10-19-2024 Bacteria LM.HPF (Urine sed) [#/Area] Negative Normal Negative [facility] Comment on above: Order Comment: Speci men Type: URINE SPECIMENOrdering Facility: [facility] Address: [address] [place] [address] Performed By: #### 2 4356-8 ####[facility] [id number] [place] [address] [place] Bilirubin Ql (U) Negative Normal Negative [facility] Comment on above: Order Comment: Speci men Type: URINE SPECIMENOrdering Facility: [facility] Address: [address] [place] [address] Performed By: #### 2 4356-8 ####[facility] [id number] [place] [address] [place] Clarity (Unsp spec) Clear Normal Clear [facility] Comment on above: Order Comment: Speci men Type: URINE SPECIMENOrdering Facility: [facility] Address: [address] [place] [address] Performed By: #### 2 4356-8 ####[facility] [id number] [place] [address] [place] Color (U) Yellow Normal Yellow [facility] Comment on above: Order Comment: Speci men Type: URINE SPECIMENOrdering Facility: [facility] Address: [address] [place] [address] Performed By: #### 2 4356-8 ####[facility] [id number] [place] [address] [place] Epithelial cells LM.HPF (Urine sed) [#/Area] None Seen Normal [facility] Comment on above: Order Comment: Speci men Type: URINE SPECIMENOrdering Facility: [facility] Address: [address] [place] [address] Performed By: #### 2 4356-8 ####[facility] [id number] [place] [address] [place] Glucose Test strip (U) [Mass/Vol] 2+ Abnormal Negative [facility] Comment on above: Order Comment: Speci men Type: URINE SPECIMENOrdering Facility: [facility] Address: [address] [place] [address] Performed By: #### 2 4356-8 ####[facility] [id number] [place] [address] [place] Hemoglobin Ql (U) Negative Normal Negative [facility] Comment on above: Order Comment: Speci men Type: URINE SPECIMENOrdering Facility: [facility] Address: [address] [place] [address] Performed By: #### 2 4356-8 ####[facility] [id number] [place] [address] [place] Hyaline casts (Urine sed) [#/Area] 0 /[LPF] Normal 0 /LPF [facility] Comment on above: Order Comment: Speci men Type: URINE SPECIMENOrdering Facility: [facility] Address: [address] [place] [address] Performed By: #### 2 4356-8 ####[facility] [id number] [place] [address] [place] Ketones Ql (U) Negative Normal Negative [facility] Comment on above: Order Comment: Speci men Type: URINE SPECIMENOrdering Facility: [facility] Address: [address] [place] [address] Performed By: #### 2 4356-8 ####[facility] [id number] [place] [address] [place] Leukocyte esterase Test strip Ql (U) Negative Normal Negative [facility] Comment on above: Order Comment: Speci men Type: URINE SPECIMENOrdering Facility: [facility] Address: [address] [place] [address] Performed By: #### 2 4356-8 ####[facility] [id number] [place] [address] [place] Nitrite Ql (U) Negative Normal Negative [facility] Comment on above: Order Comment: Speci men Type: URINE SPECIMENOrdering Facility: [facility] Address: [address] [place] [address] Performed By: #### 2 4356-8 ####[facility] [id number] [place] [address] [place] pH (U) 8.0 [pH] Normal <8.5 [facility] Comment on above: Order Comment: Speci men Type: URINE SPECIMENOrdering Facility: [facility] Address: [address] [place] [address] Performed By: #### 2 4356-8 ####[facility] [id number] [place] [address] [place] Protein (U) [Mass/Vol] 1+ Abnormal Negative [facility] Comment on above: Order Comment: Speci men Type: URINE SPECIMENOrdering Facility: [facility] Address: [address] [place] [address] Performed By: #### 2 4356-8 ####[facility] [id number] [place] [address] [place] RBC LM.HPF (Urine sed) [#/Area] 0-2 /HPF Normal 0-2 /HPF [facility] Comment on above: Order Comment: Speci men Type: URINE SPECIMENOrdering Facility: [facility] Address: [address] [place] [address] Performed By: #### 2 4356-8 ####[facility] [id number] [place] [address] [place] Specific gravity (U) [Rel density] 1.034 High 1.005-1.030 [facility] Comment on above: Order Comment: Speci men Type: URINE SPECIMENOrdering Facility: [facility] Address: [address] [place] [address] Performed By: #### 2 4356-8 ####[facility] [id number] [place] [address] [place] Urobilinogen Ql (U) 0.2 EU/dL Normal 0.2-1.0 EU/dL [facility] Comment on above: Order Comment: Speci men Type: URINE SPECIMENOrdering Facility: [facility] Address: [address] [place] [address] Performed By: #### 2 4356-8 ####[facility] [id number] [place] [address] [place] WBC LM.HPF (Urine sed) [#/Area] 0-5 /HPF Normal 0-5 /HPF [facility] Comment on above: Order Comment: Speci men Type: URINE SPECIMENOrdering Facility: [facility] Address: [address] [place] [address] Performed By: #### 2 4356-8 ####[facility] [id number] [place] [address] [place] aPTT PPPon 10-19-2024 aPTT Coag (PPP) [Time] 40.4 s High 23.0-32.4 [facility] Comment on above: Order Comment: Speci men Type: BLOOD SPECIMENOrdering Facility: [facility] Address: [address] [place] [address] Performed By: #### 1 4979-9 ####[facility] [id number] [place] [address] [place] ALLIED HEALTHon 10-18-2024 ALLIED HEALTH HNO ID: [id number] Author: SADE FRANKLIN CT Service: Radiology Author [...] PATIENT PRESENTS WITH AN IMPLANTABLE OR ATTACHED CARDIAC SONOGRAPHER: No ALLERGIES: Reviewed and unchanged CONTRAST ALLERGY: [...] PERIPHERAL IV DATA: Inpatient - refer to [facility] documentation RADIOLOGY DEPARTMENT: CT; Exam(s) Completed: CTA Abdomen Pelvis and CTA Cardiac SIGNATURE: JASMEET Ware PATIENT NAME: Shilo Hathaway DATE: October 18, 2024 TIME: 8:47 PM SCAN W/O LABS PER DR ALLEN, [facility] Normal [facility] CBC W Auto Differential pane l (Bld)on 10-18-2024 Basophils (Bld) [#/Vol] 0.08 10*3/uL Normal <0.11 [facility] Comment on above: Order Comment: Speci men Type: BLOOD SPECIMEN [facility] Address: [address] [place] [address] Performed By: #### 2 4323-8, 3040-3, 25581-6, 53227-4, [id number] #### [facility] CLIA [id number] [address] [place] [address] [place] Basophils/100 WBC (Bld) 0.8 % [facility] Comment on above: Order Comment: Speci men Type: BLOOD SPECIMEN [facility] Address: [address] [place] [address] Performed By: #### 2 4323-8, 3040-3, 74750-6, 76415-3, [id number] #### [facility] CLIA [id number] [address] [place] [address] [place] Differential cell count method Nom (Bld) Auto Normal [facility] Comment on above: Order Comment: Speci men Type: BLOOD SPECIMEN [facility] Address: [address] [place] [address] Performed By: #### 2 4323-8, 3040-3, 78913-5, 58802-9, [id number] #### [facility] CLIA [id number] [address] [place] [address] [place] Eosinophils (Bld) [#/Vol] 0.10 10*3/uL Normal <0.46 [facility] Comment on above: Order Comment: Speci men Type: BLOOD SPECIMEN [facility] Address: [address] [place] [address] Performed By: #### 2 4323-8, 3040-3, 43614-8, 02138-6, [id number] #### [facility] CLIA [id number] [address] [place] [address] [place] Eosinophils/100 WBC (Bld) 1.0 % [facility] Comment on above: Order Comment: Speci men Type: BLOOD SPECIMEN [facility] Address: [address] [place] [address] Performed By: #### 2 4323-8, 3040-3, 63636-4, 18197-5, [id number] #### [facility] CLIA [id number] [address] [place] [address] [place] Erythrocyte distribution width (RBC) [Ratio] 12.4 % Normal 11.5-15.0 [facility] Comment on above: Order Comment: Speci men Type: BLOOD SPECIMEN [facility] Address: [address] [place] [address] Performed By: #### 2 4323-8, 3040-3, 88336-7, 45324-0, [id number] #### [facility] CLIA [id number] [address] [place] [address] [place] Hematocrit (Bld) [Volume fraction] 32.6 % Low 39.0-51.0 [facility] Comment on above: Order Comment: Speci men Type: BLOOD SPECIMEN [facility] Address: [address] [place] [address] Performed By: #### 2 4323-8, 3040-3, 42201-7, 96767-6, [id number] #### [facility] CLIA [id number] [address] [place] [address] [place] Hemoglobin (Bld) [Mass/Vol] 11.0 g/dL Low 13.0-17.0 [facility] Comment on above: Order Comment: Speci men Type: BLOOD SPECIMEN [facility] Address: [address] [place] [address] Performed By: #### 2 4323-8, 3040-3, 10491-7, 87771-3, [id number] #### [facility] CLIA [id number] [address] [place] [address] [place] Immature granulocytes (Bld) [#/Vol] 0.05 10*3/uL Normal <0.10 [facility] Comment on above: Order Comment: Speci men Type: BLOOD SPECIMEN [facility] Address: [address] [place] [address] Performed By: #### 2 4323-8, 3040-3, 32337-0, 74945-4, [id number] #### [facility] CLIA [id number] [address] [place] [address] [place] Immature granulocytes/100 WBC (Bld) 0.5 % Normal [facility] Comment on above: Order Comment: Speci men Type: BLOOD SPECIMEN [facility] Address: [address] [place] [address] Performed By: #### 2 4323-8, 3040-3, 56432-4, 34097-5, [id number] #### [facility] CLIA [id number] [address] [place] [address] [place] Lymphocytes (Bld) [#/Vol] 1.34 10*3/uL Normal 1.00-4.00 [facility] Comment on above: Order Comment: Speci men Type: BLOOD SPECIMEN [facility] Address: [address] [place] [address] Performed By: #### 2 4323-8, 3040-3, 59904-3, , [id number] #### [facility] CLIA [id number] [address] [place] [facility] Lymphocytes/100 WBC (Bld) 13.7 % Normal [facility] Comment on above: Order Comment: Speci men Type: BLOOD SPECIMEN [facility] Address: [address] [place] [address] Performed By: #### 2 4323-8, 3040-3, 50044-6, 22102-3, [id number] #### [facility] CLIA [id number] [address] [place] MCH (RBC) [Entitic mass] 30.0 pg Normal 26.0-34.0 [facility] Comment on above: Order Comment: Speci men Type: BLOOD SPECIMEN Ordering Facility: [facility] Address: [address] [place] [address] Performed By: #### 2 4323-8, 3040-3, 72990-9, 51036-7, [id number] #### [facility] CLIA [id number] [address] MCHC (RBC) [Mass/Vol] 33.7 g/dL Normal 30.5-36.0 [facility] Comment on above: Order Comment: Speci men Type: BLOOD SPECIMEN Ordering Facility: [facility] Address: [address] [place] [address] Performed By: #### 2 4323-8, 3040-3, 34819-6, 80610-7, [id number] #### [facility] CLIA [id number] [address] [place] [address] [place] MCV (RBC) [Entitic vol] 88.8 fL Normal 80.0-100.0 [facility] Comment on above: Order Comment: Speci men Type: BLOOD SPECIMEN Ordering Facility: [facility] Address: [address] [place] [address] Performed By: #### 2 4323-8, 3040-3, 37606-5, 20000-6, [id number] #### [facility] CLIA [id number] [address] [place] [address] [place] Monocytes (Bld) [#/Vol] 0.79 10*3/uL Normal <0.87 [facility] Comment on above: Order Comment: Speci men Type: BLOOD SPECIMEN Ordering Facility: [facility] Address: [address] [place] [address] Performed By: #### 2 4323-8, 3040-3, 17277-9, 46039-4, [id number] #### [facility] CLIA [id number] [address] [place] [address] [place] Monocytes/100 WBC (Bld) 8.1 % Normal [facility] Comment on above: Order Comment: Speci men Type: BLOOD SPECIMEN Ordering Facility: [facility] Address: [address] [place] [address] Performed By: #### 2 4323-8, 3040-3, 31494-4, 96391-0, [id number] #### [facility] CLIA [id number] [address] [place] [address] [place] Neutrophils (Bld) [#/Vol] 7.42 10*3/uL Normal 1.45-7.50 [facility] Comment on above: Order Comment: Speci men Type: BLOOD SPECIMEN Ordering Facility: [facility] Address: [address] [place] [address] Performed By: #### 2 4323-8, 3040-3, 92691-8, 04935-1, [id number] #### [facility] CLIA [id number] [address] STATES [facility] Neutrophils/100 WBC (Bld) 75.9 % Normal [facility] Comment on above: Order Comment: Speci men Type: BLOOD SPECIMEN Ordering Facility: [facility] Address: [address] [place] [address] Performed By: #### 2 4323-8, 3040-3, 42014-1, 79608-0, [id number] #### [facility] CLIA [id number] [address] [place] [address] [place] Nucleated RBC (Bld) [#/Vol] 10*3/uL Normal <0.01 [facility] Comment on above: Order Comment: Speci men Type: BLOOD SPECIMEN Ordering Facility: [facility] Address: [address] [place] [address] Performed By: #### 2 4323-8, 3040-3, 58368-2, 55294-6, [id number] #### [facility] CLIA [id number] [address] [place] Nucleated RBC/100 WBC (Bld) [Ratio] 0.0 /100 WBC Normal [facility] Comment on above: Order Comment: Speci men Type: BLOOD SPECIMEN Ordering Facility: [facility] Address: [address] [place] [address] Performed By: #### 2 4323-8, 3040-3, 32738-7, 20714-3, [id number] #### [facility] CLIA [id number] [address] [place] Platelet mean volume (Bld) [Entitic vol] 10.1 fL Normal 9.0-12.7 [facility] Comment on above: Order Comment: Speci men Type: BLOOD SPECIMEN Ordering Facility: [facility] Address: [address] [place] [address] Performed By: #### 2 4323-8, 3040-3, 17069-6, 91550-3, [id number] #### [facility] CLIA [id number] [address] [place] [address] [place] Platelets (Bld) [#/Vol] 210 10*3/uL Normal 150-400 [facility] Comment on above: Order Comment: Speci men Type: BLOOD SPECIMEN Ordering Facility: [facility] Address: [address] [place] [address] Performed By: #### 2 4323-8, 3040-3, 99444-9, 66987-9, [id number] #### [facility] CLIA [id number] [address] [place] RBC (Bld) [#/Vol] 3.67 10*6/uL Low 4.20-6.00 [facility] Comment on above: Order Comment: Speci men Type: BLOOD SPECIMEN Ordering Facility: [facility] Address: [address] [place] [address] Performed By: #### 2 4323-8, 3040-3, 48366-9, 45403-7, [id number] #### [facility] CLIA [id number] [address] [place] [address] [place] WBC (Bld) [#/Vol] 9.78 10*3/uL Normal 3.70-11.00 [facility] Comment on above: Order Comment: Speci men Type: BLOOD SPECIMEN Ordering Facility: [facility] Address: [address] [place] [address] Performed By: #### 2 4323-8, 3040-3, 00731-8, 02526-3, [id number] #### [facility] CLIA [id number] [address] [place] CBC panel Auto (Bld)on 10-18 Erythrocyte distribution width (RBC) [Ratio] 12.5 % Normal 11.5-15.0 [facility] Comment on above: Order Comment: Speci men Type: BLOOD SPECIMENOrdering Facility: [facility] Address: [address] [place] [address] Performed By: #### 5 8410-2 ####[facility] [id number] [place] [address] [place] Hematocrit (Bld) [Volume fraction] 32.4 % Low 39.0-51.0 [facility] Comment on above: Order Comment: Speci men Type: BLOOD SPECIMENOrdering Facility: [facility] Address: [address] [place] [address] Performed By: #### 5 8410-2 ####[facility] [id number] [place] [address] [place] Hemoglobin (Bld) [Mass/Vol] 10.7 g/dL Low 13.0-17.0 [facility] Comment on above: Order Comment: Speci men Type: BLOOD SPECIMENOrdering Facility: [facility] Address: [address] [place] [address] Performed By: #### 5 8410-2 ####[facility] [id number] [place] [address] [place] MCH (RBC) [Entitic mass] 29.0 pg Normal 26.0-34.0 [facility] Comment on above: Order Comment: Speci men Type: BLOOD SPECIMENOrdering Facility: [facility] Address: [address] [place] [address] Performed By: #### 5 8410-2 ####[facility] [id number] [place] [address] [place] MCHC (RBC) [Mass/Vol] 33.0 g/dL Normal 30.5-36.0 [facility] Comment on above: Order Comment: Speci men Type: BLOOD SPECIMENOrdering Facility: [facility] Address: [address] [place] [address] Performed By: #### 5 8410-2 ####[facility] [id number] [place] [address] [place] MCV (RBC) [Entitic vol] 87.8 fL Normal 80.0-100.0 [facility] Comment on above: Order Comment: Speci men Type: BLOOD SPECIMENOrdering Facility: [facility] Address: [address] [place] [address] Performed By: #### 5 8410-2 ####[facility] [id number] [place] [address] [place] Nucleated RBC (Bld) [#/Vol] 10*3/uL Normal <0.01 [facility] Comment on above: Order Comment: Speci men Type: BLOOD SPECIMENOrdering Facility: [facility] Address: [address] [place] [address] Performed By: #### 5 8410-2 ####[facility] [id number] [place] [address] [place] Platelet mean volume (Bld) [Entitic vol] 10.8 fL Normal 9.0-12.7 [facility] Comment on above: Order Comment: Speci men Type: BLOOD SPECIMENOrdering Facility: [facility] Address: [address] [place] [address] Performed By: #### 5 8410-2 ####[facility] [id number] [place] [address] [place] Platelets (Bld) [#/Vol] 251 10*3/uL Normal 150-400 [facility] Comment on above: Order Comment: Speci men Type: BLOOD SPECIMENOrdering Facility: [facility] Address: [address] [place] [address] Performed By: #### 5 8410-2 ####[facility] [id number] [place] [address] [place] RBC (Bld) [#/Vol] 3.69 10*6/uL Low 4.20-6.00 [facility] Comment on above: Order Comment: Speci men Type: BLOOD SPECIMENOrdering Facility: [facility] Address: [address] [place] [address] Performed By: #### 5 8410-2 ####[facility] [id number] [place] [address] [place] WBC (Bld) [#/Vol] 12.13 10*3/uL High 3.70-11.00 [facility] Comment on above: Order Comment: Speci men Type: BLOOD SPECIMENOrdering Facility: [facility] Address: [address] [place] [address] Performed By: #### 5 8410-2 ####[facility] [id number] [place] [address] [place] CTA ABD/PELV W IVCONon 10-18 CTA ABD/PELV W IVCON * * *Final Report* * * DATE OF EXAM: Oct 18 2024 9:01PM [facility] 0466 - CTA ABD/PELV W IVCON / [...] (DLP) for this visit = 299 (accession [id number]), 2999 (accession [id number]) mGy*cm. CT Dose Reduction Employed: Automated exposure [...] the degree of stenosis in these regions. Cut Off Machine Helper: FRANCISCO Transcribe Date/Time: Oct 18 2024 9:20P Dictated by : RULA BENTLEY MD This examination was interpreted and the report reviewed and electronically signed by: RULA BENTLEY MD on Oct 18 2024 9:46PM EST [id number] [facility] CTA CHEST (GATED) WO/W IVCON on 10-18-2024 CTA CHEST (GATED) WO/W IVCON * * *Final Report* * * DATE OF EXAM: Oct 18 2024 9:01PM [facility] [place] [facility] 0126 - CTA CHEST (GATED) WO/W IVCON [...] (DLP) for this visit = 299 (accession [id number]), 2999 (accession [id number]) mGy*cm. CT Dose Reduction Employed: Automated exposure [...] the degree of stenosis in these regions. Cut Off Machine Helper: FRANCISCO Transcribe Date/Time: Oct 18 2024 9:20P Dictated by : RULA BENTLEY MD This examination was interpreted and the report reviewed and electronically signed by: RULA BENTLEY MD on Oct 18 2024 9:46PM EST [id number] Normal [facility] CYSTATIN Con 10-18-2024 Cystatin C [Mass/Vol] 1.24 mg/L High 0.61-0.95 [facility] Comment on above: Order Comment: Speci men Type: BLOOD SPECIMENOrdering Facility: [facility] Address: [address] [place] [address] Performed By: #### 2 777-1, 72302-2, , HSTNT, LIPNF, CYSTC ####[facility] [id number] [address] [place] CYSTATIN C EGFR 56 mL/min/1.73m??? Low >=60 C [facility] Comment on above: Order Comment: [facility] Type: BLOOD SPECIMENOrdering Facility: [facility] Address: [address] [place] [address] Result Comment: Mary Kay mated Glomerular Filtration Rate (eGFR) is calculated using the 2012 CKD-EPI cystatin C equation. This equation utilizes serum cystatin C, sex, and age as parameters. The cystatin C assay has traceable calibration to the ERM-DA471/[facility] reference material. Refer to KDIGO guidelines for clinical interpretation. In patients with unstable renal function, e.g. those with acute kidney injury, the eGFR may not accurately reflect actual GFR. Performed By: #### 2 777-1, 64645-0, 82401-7, HSTNT, LIPNF, CYSTC ####[facility] [id number] [address] [address] [place] Comprehensive metabolic 2000 panelon 10-18-2024 Albumin [Mass/Vol] 4.1 g/dL Normal 3.9-4.9 [facility] Comment on above: Order Comment: Speci men Type: BLOOD SPECIMENOrdering Facility: [facility] Address: [address] [place] [address] Performed By: #### 2 777-1, 15773-2, 17508-3, HSTNT, LIPNF, CYSTC ####[facility] [id number] [address] [address] [place] ALP [Catalytic activity/Vol] 67 U/L Normal 38-113 [facility] Comment on above: Order Comment: Speci men Type: BLOOD SPECIMENOrdering Facility: [facility] Address: [address] [place] [address] Performed By: #### 2 777-1, 01171-6, 49949-1, HSTNT, LIPNF, CYSTC ####[facility] [id number] [place] [id number] [place] ALT [Catalytic activity/Vol] 14 U/L Normal 10-54 [facility] Comment on above: Order Comment: Speci men Type: BLOOD SPECIMENOrdering Facility: [facility] Address: [address] [place] [address] Performed By: #### 2 777-1, 99790-8, 98981-9, HSTNT, LIPNF, CYSTC ####[facility] [id number] [place] [address] [place] Anion gap [Moles/Vol] 16 mmol/L High 8-15 [facility] Comment on above: Order Comment: Speci men Type: BLOOD SPECIMENOrdering Facility: [facility] Address: [address] [place] [address] Performed By: #### 2 777-1, 39362-4, 02744-9, HSTNT, LIPNF, CYSTC ####[facility] [id number] [address] [address] [place] AST [Catalytic activity/Vol] 19 U/L Normal 14-40 [facility] Comment on above: Order Comment: Speci men Type: BLOOD SPECIMENOrdering Facility: [facility] Address: [address] [place] [address] Performed By: #### 2 777-1, 91793-8, 18710-7, HSTNT, LIPNF, CYSTC ####[facility] [id number] [address] [address] [place] Bilirubin [Mass/Vol] 0.3 mg/dL Normal 0.2-1.3 [facility] Comment on above: Order Comment: Speci men Type: BLOOD SPECIMENOrdering Facility: [facility] Address: [address] [place] [address] Performed By: #### 2 777-1, 20628-4, 34224-2, HSTNT, LIPNF, CYSTC ####[facility]IA [id number] [place] [address] [place] Calcium [Mass/Vol] 9.1 mg/dL Normal 8.5-10.2 [facility] Comment on above: Order Comment: Speci men Type: BLOOD SPECIMENOrdering Facility: [facility] Address: [address] [place] [address] Performed By: #### 2 777-1, 15752-0, , HSTNT, LIPNF, CYSTC ####[facility] [id number] [place] [address] [place] Chloride [Moles/Vol] 101 mmol/L Normal 98-107 [facility] Comment on above: Order Comment: Speci men Type: BLOOD SPECIMENOrdering Facility: [facility] Address: [address] [place] [address] Performed By: #### 2 777-1, 78719-8, , HSTNT, LIPNF, CYSTC ####[facility] [id number] [place] [address] [place] CO2 [Moles/Vol] 23 mmol/L Normal 22-30 [facility] Comment on above: Order Comment: Speci men Type: BLOOD SPECIMENOrdering Facility: [facility] Address: [address] [place] [address] Performed By: #### 2 777-1, 82228-7, 81216-9, HSTNT, LIPNF, CYSTC ####[facility] [id number] [place] [id number] [place] Creatinine [Mass/Vol] 1.34 mg/dL High 0.73-1.22 [facility] Comment on above: Order Comment: Speci men Type: BLOOD SPECIMENOrdering Facility: [facility] Address: [address] [place] [address] Performed By: #### 2 777-1, 63810-6, , HSTNT, LIPNF, CYSTC ####[facility]IA [id number] [place] [address] [place] Creatinine and Glomerular filtration rate.predicted panel (S/P/Bld) 56 mL/min/1.73m??? Low >=60 [facility] Comment on above: Order Comment: Speci men Type: BLOOD SPECIMENOrdering Facility: [facility] Address: [address] [place] [address] Result Comment: Mary Kay mated Glomerular Filtration [...] actual GFR. Performed By: #### 2 777-1, 64754-6, 47207-4, HSTNT, LIPNF, CYSTC ####[facility] [id number] [place] [id number] [place] Glucose [Mass/Vol] 233 mg/dL High 74-99 [facility] Comment on above: Order Comment: Speci men Type: BLOOD SPECIMENOrdering Facility: [facility] Address: [address] [place] [address] Result Comment: [place] Diabetes Association (ADA) provides guidance for cutoff [...] Standards of Medical Care in Diabetes 2016, [place] Diabetes Association. Diabetes Care. 2016.39(Suppl 1). Performed By: #### 2 777-1, , , HSTNT, LIPNF, CYSTC ####[facility] [id number] [place] [address] [place] Potassium [Moles/Vol] 5.0 mmol/L Normal 3.7-5.1 [facility] Comment on above: Order Comment: Speci men Type: BLOOD SPECIMENOrdering Facility: [facility] Address: [address] [place] [address] Performed By: #### 2 777-1, , , HSTNT, LIPNF, CYSTC ####[facility] [id number] [place] [id number] [place] Protein [Mass/Vol] 7.0 g/dL Normal 6.3-8.0 [facility] Comment on above: Order Comment: Speci men Type: BLOOD SPECIMENOrdering Facility: [facility] Address: [address] [place] [address] Performed By: #### 2 777-1, , , HSTNT, LIPNF, CYSTC ####[facility] [id number] [place] [id number] [place] Sodium [Moles/Vol] 140 mmol/L Normal 136-144 [facility] Comment on above: Order Comment: Speci men Type: BLOOD SPECIMENOrdering Facility: [facility] Address: [address] [place] [address] Performed By: #### 2 777-1, 82254-2, 42192-0, HSTNT, LIPNF, CYSTC ####[facility]CLIA [id number] [place] [address] [place] Urea nitrogen [Mass/Vol] 24 mg/dL Normal 9-24 [facility] Comment on above: Order Comment: Speci men Type: BLOOD SPECIMENOrdering Facility: [facility] Address: [address] [place] [address] Performed By: #### 2 777-1, 44486-6, 66987-9, HSTNT, LIPNF, CYSTC ####[facility]CLIA [id number] [place] [address] [place] Albumin [Mass/Vol] 4.4 g/dL Normal 3.9-4.9 [facility] Comment on above: Order Comment: Speci men Type: BLOOD SPECIMEN Ordering Facility[facility] Address: [address] [place] [address] Performed By: #### 2 4323-8, 3040-3, 90308-0, 79686-0, [id number] #### [facility] CLIA [id number] [address] [place] [address] [place] ALP [Catalytic activity/Vol] 62 U/L Normal 38-113 [facility] Comment on above: Order Comment: Speci men Type: BLOOD SPECIMEN Ordering Facility: [facility] Address: [address] [place] [address] Performed By: #### 2 4323-8, 3040-3, 55339-2, 07934-8, [id number] #### [facility] CLIA [id number] [address] [place] [address] [place] ALT [Catalytic activity/Vol] 13 U/L Normal 10-54 [facility] Comment on above: Order Comment: Speci men Type: BLOOD SPECIMEN Ordering Facility: [facility] Address: [address] [place] [address] Performed By: #### 2 4323-8, 3040-3, 00727-2, 71413-6, [id number] #### [facility] CLIA [id number] [address] [place] [address] [place] Anion gap [Moles/Vol] 12 mmol/L Normal 8-15 [facility] Comment on above: Order Comment: Speci men Type: BLOOD SPECIMEN Ordering Facility: [facility] Address: [address] [place] [address] Performed By: #### 2 4323-8, 3040-3, 77377-5, 34465-6, [id number] #### [facility] CLIA [id number] [address] [place] AST [Catalytic activity/Vol] 18 U/L Normal 14-40 [facility] Comment on above: Order Comment: Speci men Type: BLOOD SPECIMEN Ordering Facility: [facility] Address: [address] [place] [address] Performed By: #### 2 4323-8, 3040-3, 03440-8, 50118-6, [id number] #### [facility] CLIA [id number] [address] [place] Bilirubin [Mass/Vol] 0.3 mg/dL Normal 0.2-1.3 [facility] Comment on above: Order Comment: Speci men Type: BLOOD SPECIMEN Ordering Facility: [facility] Address: [address] [place] [address] Performed By: #### 2 4323-8, 3040-3, 78662-7, 30454-7, [id number] #### [facility] CLIA [id number] [address] STATES OF [facility] Calcium [Mass/Vol] 9.8 mg/dL Normal 8.5-10.2 [facility] Comment on above: Order Comment: Speci men Type: BLOOD SPECIMEN Ordering Facility: [facility] Address: [address] [place] [address] Performed By: #### 2 4323-8, 3040-3, 41115-2, 46621-1, [id number] #### [facility] CLIA [id number] [address] [place] [address] [place] Chloride [Moles/Vol] 100 mmol/L Normal 98-107 [facility] Comment on above: Order Comment: Speci men Type: BLOOD SPECIMEN Ordering Facility: [facility] Address: [address] [place] [address] Performed By: #### 2 4323-8, 3040-3, 30150-8, 87761-3, [id number] #### [facility] CLIA [id number] [address] [place] [address] [place] CO2 [Moles/Vol] 28 mmol/L Normal 22-30 [facility] Comment on above: Order Comment: Speci men Type: BLOOD SPECIMEN Ordering Facility: [facility] Address: [address] [place] [address] Performed By: #### 2 4323-8, 3040-3, 59078-9, 68743-8, [id number] #### [facility] CLIA [id number] [address] [place] [address] [place] Creatinine [Mass/Vol] 1.32 mg/dL High 0.73-1.22 [facility] Comment on above: Order Comment: Speci men Type: BLOOD SPECIMEN Ordering Facility: [facility] Address: [address] [place] [address] Performed By: #### 2 4323-8, 3040-3, 71936-8, 52958-7, [id number] #### [facility] CLIA [id number] [address] [place] [address] [facility] [place] Creatinine and Glomerular filtration rate.predicted panel (S/P/Bld) 57 mL/min/1.73m??? Low >=60 [facility] Comment on above: Order Comment: Speci men Type: BLOOD SPECIMEN Ordering Facility: [facility] Address: [address] [place] [address] Result Comment: Mary Kay mated Glomerular Filtration [...] GFR. Performed By: #### 2 4323-8, 3040-3, 42522-0, 70620-0, [id number] #### [facility] CLIA [id number] [address] [place] [address] [place] Glucose [Mass/Vol] 258 mg/dL High 74-99 [facility] Comment on above: Order Comment: Jose Cruz johnson Type: BLOOD SPECIMEN Ordering Facility: [facility] Address: [address] [place] [address] Result Comment: [place] Diabetes Association (ADA) provides guidance for cutoff [...] Standards of Medical Care in Diabetes 2016, [place] [employer] Association. Diabetes Care. 2016.39(Suppl 1). Performed By: #### 2 4323-8, 3040-3, 10283-0, 44751-9, [id number] #### [facility] CLIA [id number] [address] [place] [address] [place] Potassium [Moles/Vol] 5.0 mmol/L Normal 3.7-5.1 [facility] Comment on above: Order Comment: Jose Cruz johnson Type: BLOOD SPECIMEN Ordering Facility: [facility] Address: [address] [place], [place] [id number] Performed By: #### 2 4323-8, 3040-3, 73852-4, 81508-8, [id number] #### [facility] CLIA [id number] [address] [place] [address] [place] Protein [Mass/Vol] 7.6 g/dL Normal 6.3-8.0 [facility] Comment on above: Order Comment: Speci men Type: BLOOD SPECIMEN Ordering Facility: [facility] Address: [address] [place] [address] Performed By: #### 2 4323-8, 3040-3, 20468-8, 23731-4, [id number] #### [facility] CLIA [id number] [address] [place] [address] [place] Sodium [Moles/Vol] 140 mmol/L Normal 136-144 [facility] Comment on above: Order Comment: Speci men Type: BLOOD SPECIMEN Ordering Facility: [facility] Address: [address] [place] [address] Performed By: #### 2 4323-8, 3040-3, 78795-6, 21568-8, [id number] #### [facility] CLIA [id number] [address] [place] [address] [place] Urea nitrogen [Mass/Vol] 25 mg/dL High 9-24 [facility] Comment on above: Order Comment: Speci men Type: BLOOD SPECIMEN Ordering Facility: [facility] Address: [address] [place] [address] Performed By: #### 2 4323-8, 3040-3, 01584-3, 00767-9, [id number] #### [facility] CLIA [id number] [address] [place] [address] [place] [id number] 10-18-2024 ECG01 Normal [facility] ED NOTEon 10-18-2024 ED NOTE HNO ID: [id number] Author: LEAH CHAVEZ RN Service: ? Author Type: Registered Nurse Type: ED Notes Filed: 10/18/2024 22:20 Note Text: Transport left unit 2215 [facility] ED NOTE HNO ID: [id number] Author: LEAH CHAVEZ RN Service: ? Author Type: Registered Nurse Type: ED Notes Filed: 10/18/2024 22:10 Note Text: Transport team at bedside [facility] ED NOTE HNO ID: [id number] Author: LEAH CHAVEZ RN Service: ? Author Type: Registered Nurse Type: ED Notes Filed: 10/18/2024 21:15 Note Text: Pt returned from CT c/o pain ripping through his back. EKG repeated and given to MD. [facility] ED NOTE HNO ID: [id number] Author: LEAH CHAVEZ RN Service: ? 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 Normal [facility] EKGon 10-18-2024 Electrocardiogram Ventricular Rate : 9 4 BPM Atrial Rate : 94 BPM P-R Interval : 178 ms QRS Duration : 108 ms Q-T Interval : 356 ms QTC Calculation(Bazett) : 445 ms Calculated P Gamaliel : 52 degrees Calculated R Gamaliel : 67 degrees Calculated T Gamaliel : 259 degrees NORMAL SINUS RHYTHM CANNOT RULE OUT INFERIOR INFARCT (CITED ON OR BEFORE 18-Oct-2024) MARKED ST ABNORMALITY, POSSIBLE ANTEROLATERAL SUBENDOCARDIAL INJURY ABNORMAL ECG When compared with selected ECG of 18-Oct-2024 20:33, SERIAL CHANGES OF INFERIOR INFARCT PRESENT ST changes more prominent- potential STEMI equivalent (L main/LAD) Confirmed by STEFFANIE ALLEN MD ([id number]) on 10/18/2024 9:18:05 PM NAME : SHILO HATHAWAY PID : [id number] : 1950 Gender : Male Race : [...] (L main/LAD) Confirmed by STEFFANIE ALLEN MD ([id number]) on 10/18/2024 9:18:05 PM Test Reason : Location : 1 : ER ED Overread By : STEFFANIE ALLEN MD Edited By : STEFFANIE ALLEN MD Referred By : , Acquired by : JANNY Normal [facility] Electrocardiogram Ventricular Rate : 8 9 BPM Atrial Rate : 89 BPM P-R Interval : 202 ms QRS Duration : 100 ms Q-T Interval : 372 ms QTC Calculation(Bazett) : 452 ms Calculated P Gamaliel : 53 degrees Calculated R Gamaliel : 69 degrees Calculated T Gamaliel : -46 degrees NORMAL SINUS RHYTHM CANNOT [...] PM NAME : SHILO HATHAWAY PID : [id number] : 1950 Gender : Male Race : [...] : , Acquired by : Min SINGH [facility] Gas and Carbon monoxide pane l (BldV)on 10-18-2024 Base excess Calc (BldV) [Moles/Vol] 1 mmol/L Normal 0-2 [facility] Comment on above: Order Comment: Speci men Type: VENOUS BLOOD SPECIMENOrdering Facility: [facility] Address: [address] [place] [address] Performed By: #### 2 4344-4 ####[facility]IA [id number] [place] [address] [place] Body temperature 98.6 [degF] Normal [facility] Comment on above: Order Comment: Speci men Type: VENOUS BLOOD SPECIMENOrdering Facility: [facility] Address: [address] [place] [address] Performed By: #### 2 4344-4 ####[facility] LABCLIA [id number] [place] [address] [place] Calcium.ionized (Bld) [Mass/Vol] 1.20 mmol/L Normal 1.08-1.30 [facility] Comment on above: Order Comment: Speci men Type: VENOUS BLOOD SPECIMENOrdering Facility: [facility] Address: [address] [place] [address] Performed By: #### 2 4344-4 ####[facility] LABIA [id number] [place] [address] [place] Calcium.ionized adjusted to pH 7.4 (BldA) [Moles/Vol] 1.19 mmol/L Normal 1.08-1.30 [facility] Comment on above: Order Comment: Speci men Type: VENOUS BLOOD SPECIMENOrdering Facility: [facility] Address: [address] [place] [address] Performed By: #### 2 4344-4 ####[facility]CLIA [id number] [place] [address] [place] Carboxyhemoglobin (BldV) [Mass fraction] 1.2 % Normal 0.0-2.0 [facility] Comment on above: Order Comment: Speci men Type: VENOUS BLOOD SPECIMENOrdering Facility: [facility] Address: [address] [place] [address] Result Comment: Carb oxyhemoglobin Reference Range for Smokers: 2.0-8.0% Performed By: #### 2 4344-4 ####[facility] LABCLIA [id number] [place] [address] [place] CO2 (BldV) [Partial pressure] 45 mm[Hg] Normal 42-55 [facility] Comment on above: Order Comment: Speci men Type: VENOUS BLOOD SPECIMENOrdering Facility: [facility] Address: [address] [place] [address] Performed By: #### 2 4344-4 ####[facility]CLIA [id number] [place] [address] [place] Glucose [Mass/Vol] 254 mg/dL High 60-105 [facility] Comment on above: Order Comment: Speci men Type: VENOUS BLOOD SPECIMENOrdering Facility: [facility] Address: [address] [place] [address] Performed By: #### 2 4344-4 ####[facility]CLIA [id number] [place] [address] [place] HCO3 (Bld) [Moles/Vol] 26 mmol/L Normal 24-28 [facility] Comment on above: Order Comment: Speci men Type: VENOUS BLOOD SPECIMENOrdering Facility: [facility] Address: [address] [place] [address] Performed By: #### 2 4344-4 ####[facility]CLIA [id number] [place] [address] [place] Hematocrit (Bld) [Volume fraction] 34.1 % Low 39.0-51.0 [facility] Comment on above: Order Comment: Speci men Type: VENOUS BLOOD SPECIMENOrdering Facility: [facility] Address: [address] [place] [address] Performed By: #### 2 4344-4 ####[facility]CLIA [id number] [place] [address] [place] Hemoglobin (Bld) [Mass/Vol] 11.1 g/dL Low 13.0-17.0 [facility] Comment on above: Order Comment: Speci men Type: VENOUS BLOOD SPECIMENOrdering Facility: [facility] Address: [address] [place] [place] [id number] Performed By: #### 2 4344-4 ####[facility]CLIA [id number] [address] [address] [place] Lactate [Moles/Vol] 2.6 mmol/L High 0.5-2.2 [facility] Comment on above: Order Comment: Speci men Type: VENOUS BLOOD SPECIMENOrdering Facility: [facility] Address: [address] [place] [address] Performed By: #### 2 4344-4 ####[facility] LABIA [id number] [place] [address] [place] Methemoglobin (Bld) [Mass fraction] 0.7 % Normal 0.0-1.5 [facility] Comment on above: Order Comment: Speci men Type: VENOUS BLOOD SPECIMENOrdering Facility: [facility] Address: [address] [place] [address] Performed By: #### 2 4344-4 ####[facility] LABIA [id number] [place] [address] [place] O2 THERAPY RA=Room Air Normal [facility] Comment on above: Order Comment: Speci men Type: VENOUS BLOOD SPECIMENOrdering Facility: [facility] Address: [address] [place], [place] [address] Performed By: #### 2 4344-4 ####[facility] LABCLIA [id number] [place] [id number] [place] Oxygen (BldV) [Partial pressure] 52 mm[Hg] High 35-45 [facility] Comment on above: Order Comment: Speci men Type: VENOUS BLOOD SPECIMENOrdering Facility: [facility] Address: [address] [place], [place] [address] Performed By: #### 2 4344-4 ####[facility]CLIA [id number] [address] [address] [place] Oxygen saturation in Venous blood 85 % Normal 60-85 [facility] Comment on above: Order Comment: Speci men Type: VENOUS BLOOD SPECIMENOrdering Facility: [facility] Address: [address] [place] [address] Performed By: #### 2 4344-4 ####[facility]CLIA [id number] [address] [address] [place] Oxyhemoglobin (BldV) [Mass fraction] 83 % Normal 60-85 [facility] Comment on above: Order Comment: Speci men Type: VENOUS BLOOD SPECIMENOrdering Facility: [facility] Address: [address] [place] [address] Performed By: #### 2 4344-4 ####[facility]CLIA [id number] [place] [address] [place] pH (BldV) 7.38 [pH] Normal 7.32-7.42 [facility] Comment on above: Order Comment: Speci men Type: VENOUS BLOOD SPECIMENOrdering Facility: [facility] Address: [address] [place] [address] Performed By: #### 2 4344-4 ####[facility]CLIA [id number] [place] [address] [place] Potassium [Moles/Vol] 4.9 mmol/L Normal 3.5-5.0 [facility] Comment on above: Order Comment: Speci men Type: VENOUS BLOOD SPECIMENOrdering Facility: [facility] Address: [address] [place] [address] Performed By: #### 2 4344-4 ####[facility]CLIA [id number] [address] [address] [place] Sodium [Moles/Vol] 140 mmol/L Normal 136-144 [facility] Comment on above: Order Comment: Speci men Type: VENOUS BLOOD SPECIMENOrdering Facility: [facility] Address: [address] [place] [address] Performed By: #### 2 4344-4 ####[facility]CLIA [id number] [facility] [id number] [place] [address] [place] Base excess Calc (BldV) [Moles/Vol] 4 mmol/L High 0-2 [facility] Comment on above: Order Comment: Speci men Type: BLOOD SPECIMEN Ordering Facility[facility] Address: [address] [place] [address] Performed By: #### 2 4323-8, 3040-3, 21966-0, 82324-0, [id number] #### [facility] CLIA [id number] [address] [place] Carboxyhemoglobin (BldV) [Mass fraction] 1.3 % Normal 0.0-2.0 [facility] Comment on above: Order Comment: Speci men Type: BLOOD SPECIMEN Ordering Facility: [facility] Address: [address] [place] [address] Result Comment: Carb oxyhemoglobin Reference Range for Smokers: 2.0-8.0% Performed By: #### 2 4323-8, 3040-3, 82732-4, 72835-8, [id number] #### [facility] CLIA [id number] [address] [place] CO2 (BldV) [Partial pressure] 45 mm[Hg] Normal 42-55 [facility] Comment on above: Order Comment: Speci men Type: BLOOD SPECIMEN Ordering Facility: [facility] Address: [address] [place] [address] Performed By: #### 2 4323-8, 3040-3, 02319-6, 58170-1, [id number] #### [facility] CLIA [id number] [address] [place] CO2 adjusted to patient's actual temperature (BldV) [Partial pressure] Normal [facility] Comment on above: Order Comment: Speci men Type: BLOOD SPECIMEN Ordering Facility: [facility] Address: [address] [place], [place] [address] Performed By: #### 2 4323-8, 3040-3, 26059-4, 57510-0, [id number] #### [facility] CLIA [id number] [address] [place] [address] [place] HCO3 (Bld) [Moles/Vol] 30 mmol/L High 24-28 [facility] Comment on above: Order Comment: Speci men Type: BLOOD SPECIMEN [facility] Address: [address] [place] [place] [address] Performed By: #### 2 4323-8, 3040-3, 46852-1, 85036-7, [id number] #### [facility] CLIA [id number] [address] [place] [address] [place] Hemoglobin (Bld) [Mass/Vol] 11.7 g/dL Low 13.0-17.0 [facility] Comment on above: Order Comment: Speci men Type: BLOOD SPECIMEN Ordering Facility: [facility] Address: [address] [place] [address] Performed By: #### 2 4323-8, 3040-3, 67337-4, 35255-3, [id number] #### [facility] CLIA [id number] [address] [place] [address] [place] Lactate [Moles/Vol] 1.8 mmol/L Normal 0.5-2.2 [facility] Comment on above: Order Comment: Speci men Type: BLOOD SPECIMEN Ordering Facility: [facility] Address: [address] [place] [address] Performed By: #### 2 4323-8, 3040-3, 79850-9, 18023-3, [id number] #### [facility] CLIA [id number] [address] [place] [address] [place] Methemoglobin (Bld) [Mass fraction] % Normal 0.0-1.5 [facility] Comment on above: Order Comment: Speci men Type: BLOOD SPECIMEN Ordering Facility: [facility] Address: [address] [place] [address] Performed By: #### 2 4323-8, 3040-3, 65383-5, 93568-3, [id number] #### [facility] CLIA [id number] [address] [facility] O2 THERAPY RA=Room Air [facility] Comment on above: Order Comment: Speci men Type: BLOOD SPECIMEN Ordering Facility: [facility] Address: [address] [place], [place] [address] Performed By: #### 2 4323-8, 3040-3, 91410-8, 66732-8, [id number] #### [facility] CLIA [id number] [address] [place] [address] [facility] [place] Oxygen (BldV) [Partial pressure] 41 mm[Hg] Normal 35-45 [facility] Comment on above: Order Comment: Speci men Type: BLOOD SPECIMEN Ordering Facility: [facility] Address: [address] [place] [address] Performed By: #### 2 4323-8, 3040-3, 89798-5, 39474-9, [id number] #### [facility] CLIA [id number] [address] Oxygen adjusted to patient's actual temperature (BldV) [Partial pressure] [facility] Comment on above: Order Comment: Speci men Type: BLOOD SPECIMEN Ordering Facility: [facility] Address: [address] [place], [place] [address] Performed By: #### 2 4323-8, 3040-3, 16018-2, 82814-6, [id number] #### [facility] CLIA [id number] [address] [place] [address] [place] Oxygen saturation in Venous blood 77 % Normal 60-85 [facility] Comment on above: Order Comment: Speci men Type: BLOOD SPECIMEN [facility] Address: [address] [place], [place] [address] Performed By: #### 2 4323-8, 3040-3, 29453-0, 03410-7, [id number] #### [facility] CLIA [id number] [address] [place] [address] [place] Oxyhemoglobin (BldV) [Mass fraction] 75 % Normal 60-85 [facility] Comment on above: Order Comment: Speci men Type: BLOOD SPECIMEN Order[facility] Facility[facility] Address: [address] [place] [address] Performed By: #### 2 4323-8, 3040-3, 43129-0, 01427-4, [id number] #### [facility] CLIA [id number] [address] [place] [address] [place] pH (BldV) 7.42 [pH] Normal 7.32-7.42 [facility] Comment on above: Order Comment: Speci men Type: BLOOD SPECIMEN Ordering Facility: [facility] Address: [address] [place] [address] Performed By: #### 2 4323-8, 3040-3, 31144-4, 20572-0, [id number] #### [facility] CLIA [id number] [address] pH adjusted to patient's actual temperature (BldV) Normal [facility] Comment on above: Order Comment: Speci men Type: BLOOD SPECIMEN Order[facility] Facility[facility] Address: [address] [place] [address] Performed By: #### 2 4323-8, 3040-3, 74683-8, 99955-8, [id number] #### [facility] CLIA [id number] [address] [place] Potassium [Moles/Vol] 4.8 mmol/L Normal 3.5-5.0 [facility] Comment on above: Order Comment: Speci men Type: BLOOD SPECIMEN Ordering Facility: [facility] Address: [address] [place] [address] Performed By: #### 2 4323-8, 3040-3, 35519-6, 50668-3, [id number] #### [facility] CLIA [id number] [address] HIGH SENSITIVITY TROPONIN To n 10-18-2024 Troponin T.cardiac High sensitivity method [Mass/Vol] 50 ng/L High <12 [facility] Comment on above: Order Comment: Speci men Type: BLOOD SPECIMENOrdering Facility: [facility] Address: [address] [place] [address] Performed By: #### 2 777-1, 53802-5, 77938-7, HSTNT, LIPNF, CYSTC ####[facility] LABCLIA [id number] [address] [address] [place] HIGH SENSITIVITY TROPONIN T (INITIAL)on 10-18-2024 Troponin T.cardiac High sensitivity method [Mass/Vol] 25 ng/L High <12 [facility] Comment on above: Order Comment: Speci men Type: BLOOD SPECIMEN Ordering Facility: [facility] Address: [address] [place] [address] Performed By: #### 2 4323-8, 3040-3, 54092-0, 91445-3, [id number] #### [facility] CLIA [id number] [address] [place] [address] [place] HIGH SENSITIVITY TROPONIN T (SECOND)on 10-18-2024 Troponin T.cardiac High sensitivity method [Mass/Vol] 35 ng/L High <[address] [place] [address] Comment on above: Order Comment: Speci men Type: BLOOD SPECIMEN Ordering Facility: [facility] Address: [address] [place] [address] Performed By: #### 2 4323-8, 3040-3, 71729-8, 41914-8, [id number] #### [facility] CLIA [id number] [address] [place] [address] [place] HISTORY PHYSICALon HISTORY PHYSICAL Normal [facility] LIPID PANEL, NONFASTINGon Cholesterol [Mass/Vol] 92 mg/dL Normal <200 [facility] Comment on above: Order Comment: Speci men Type: BLOOD SPECIMENOrdering Facility: [facility] Address: [address] [place] [address] Result Comment: <200 mg/dL, Desirable 200-239 mg/dL, Borderline high>239 mg/dL, High Performed By: #### 2 777-1, 39523-6, , HSTNT, LIPNF, CYSTC ####[facility] LABCLIA [id number] [place] [address] [place] HDL CHOLESTEROL, NF 41 mg/dL Normal >39 [facility] Comment on above: Order Comment: Speci men Type: BLOOD SPECIMENOrdering Facility: [facility] Address: [address] [place] [address] Result Comment: 40-5 9 mg/dL, Acceptable>59 mg/dL, High: Negative risk factor for coronary heart disease<40 mg/dL, Low: Positive risk factor for coronary heart disease Performed By: #### 2 777-1, , , HSTNT, LIPNF, CYSTC ####[facility] LABCLIA [id number] [place] [address] [place] LDL CHOLESTEROL, NF 19 mg/dL Normal <100 [facility] Comment on above: Order Comment: Speci men Type: BLOOD SPECIMENOrdering Facility: [facility] Address: [address] [place] [address] Result Comment: <100 mg/dL, Optimal 100-129 mg/dL, Near optimal/above optimal 130-159 mg/dL, Borderline high 160-189 mg/dL, High>189 mg/dL, Very highSecondary prevention optimal LDL Cholesterol levels are recommended to be < 70 mg/dL Performed By: #### 2 777-1, , , HSTNT, LIPNF, CYSTC ####[facility] LABCLIA [id number] [place] [address] [place] LDL/HDL RATIO, NF 0.46 mg/dL Normal <2.54 [facility] Comment on above: Order Comment: Speci men Type: BLOOD SPECIMENOrdering Facility: [facility] Address: [address] [place] [address] Result Comment: Refe rence:1. National Cholesterol Education Program ATP III Guideline At-A-Glance Quick Desk Reference: National Heart, Lung, and Blood [place]. National Institutes of Health. 2001: NIH Publication No. 01-3305.2. An International Atherosclerosis Society position paper: global recommendations for the management of dyslipidemia: executive summary, Atherosclerosis. 2014: 232(2):410-413. Performed By: #### 2 777-1, 19807-9, 51074-8, HSTNT, LIPNF, CYSTC ####[facility] LABCLIA [id number] [place] [address] [place] NON HDL CHOL, NF 51 mg/dL Normal <130 [facility] Comment on above: Order Comment: Speci men Type: BLOOD SPECIMENOrdering Facility: [facility] Address: [address] [place] [address] Result Comment: <130 mg/dL, Optimal 130-159 mg/dL, Near optimal/above optimal 160-189 mg/dL, Borderline high 190-219 mg/dL, High>219 mg/dL, Very highSecondary prevention optimal non HDL Cholesterol levels are recommended to be <100 mg/dL Performed By: #### 2 777-1, 57447-2, 75119-2, HSTNT, LIPNF, CYSTC ####[facility] LABCLIA [id number] [place] [address] [place] T CHOL/HDL RATIO NF 2.24 mg/dL Normal <5.10 [facility] Comment on above: Order Comment: Speci men Type: BLOOD SPECIMENOrdering Facility: [facility] Address: [address] [place] [address] Performed By: #### 2 777-1, 16832-7, 71280-1, HSTNT, LIPNF, CYSTC ####[facility] LABCLIA [id number] [place] [address] [place] TRIGLYCERIDES, NF 162 mg/dL High <150 [facility] Comment on above: Order Comment: Speci men Type: BLOOD SPECIMENOrdering Facility: [facility] Address: [address], [place] [address] Result Comment: <150 mg/dL, Normal 150-199 mg/dL, Borderline high 200-499 mg/dL, High>499 mg/dL, Very high Performed By: #### 2 777-1, 19141-5, , HSTNT, LIPNF, CYSTC ####[facility]CLIA [id number] [address] [address] [place] VLDL CHOLESTEROL, NF 32 mg/dL High <30 [facility] Comment on above: Order Comment: Speci men Type: BLOOD SPECIMENOrdering Facility: [facility] Address: [address] [place] [address] Performed By: #### 2 777-1, , , HSTNT, LIPNF, CYSTC ####[facility] LABCLIA [id number] [place] [address] [place] Lipase SerPl-cCncon 10-18-19 25 Lipase [Catalytic activity/Vol] 99 U/L High 16-61 [facility] Comment on above: Order Comment: Speci men Type: BLOOD SPECIMEN Ordering Facility: [facility] Address: [address] [place] [address] Performed By: #### 2 4323-8, 3040-3, 05916-1, , [id number] #### [facility] CLIA [id number] [address] [place] [address] [place] Magnesium SerPl-mCncon 10-18 Magnesium [Mass/Vol] 1.6 mg/dL Low 1.7-2.3 [facility] Comment on above: Order Comment: Speci men Type: BLOOD SPECIMENOrdering Facility: [facility] Address: [address] [place] [address] Performed By: #### 2 777-1, 68241-2, , HSTNT, LIPNF, [facility] ####[facility] LABCLIA [id number] [place] [id number] [place] Magnesium [Mass/Vol] 1.6 mg/dL Low 1.7-2.3 [facility] Comment on above: Order Comment: Jose Cruz johnson Type: BLOOD SPECIMEN Ordering Facility: [facility] Address: [address] [place] [address] Performed By: #### 2 4323-8, 3040-3, 05233-0, 73102-9, [id number] #### [facility] CLIA [id number] [address] STATES [facility] NT-proBNP [facility] Natriuretic peptide.B prohormone N-Terminal [Mass/Vol] 415 pg/mL High <125 [facility] Comment on above: Order Comment: Jose Cruz johnson Type: BLOOD SPECIMEN Ordering Facility: [facility] Address: [address] [place] [address] Performed By: #### 2 4323-8, 3040-3, 27066-5, 67667-6, [id number] #### [facility] CLIA [id number] [address] [place] PT panel Coag (PPP)on 2024 INR Coag (PPP) [Relative time] 1.0 {INR} Normal 0.9-1.3 [facility] Comment on above: Order Comment: Jose Cruz johnson Type: BLOOD SPECIMENOrdering Facility: [facility] Address: [address] [place] [address] Result Comment: Antionette min K Antagonist (VKA) Therapeutic Range: INR 2 to 3 (Target INR of 2.5)Note: For patients treated with VKA drugs, such as warfarin, the [place] [employer] 2012 Guideline recommends [...] 70: 252-289 Performed By: #### 3 4528-0, 61987-8 ####[facility] LABCLIA [id number] [place] [address] [place] PT Coag (PPP) [Time] 10.6 s Normal 9.7-13.0 [facility] Comment on above: Order Comment: Speci men Type: BLOOD SPECIMENOrdering Facility: [facility] Address: [address] [place] [address] Performed By: #### 3 4528-0, 32091-2 ####[facility] LABCLIA [id number] [place] [address] [place] INR Coag (PPP) [Relative time] 1.0 {INR} Normal 0.9-1.3 [facility] Comment on above: Order Comment: Speci men Type: BLOOD SPECIMEN Ordering Facility: [facility] Address: [address] [place] [address] Result Comment: Antionette min K Antagonist (VKA) Therapeutic Range: INR 2 to 3 (Target INR of 2.5) Note: For patients treated with VKA drugs, such as warfarin, the [place] [employer] 2012 Guideline recommends [...] 252-289 Performed By: #### 2 4323-8, 3040-3, 15140-6, 92655-6, [id number] #### [facility] CLIA [id number] 1000 [place] [address] [place] PT Coag (PPP) [Time] 10.6 s Normal 9.7-13.0 [facility] Comment on above: Order Comment: Speci men Type: BLOOD SPECIMEN Ordering Facility: [facility] Address: [address] [place] [address] Performed By: #### 2 4323-8, 3040-3, 91162-8, 21193-8, [id number] #### [facility] CLIA [id number] [address] [place] [id number] [place] Phosphate SerPl-mCncon 10-18 Phosphate [Mass/Vol] 3.3 mg/dL Normal 2.7-4.8 [facility] Comment on above: Order Comment: Speci men Type: BLOOD SPECIMENOrdering Facility: [facility] Address: [address] [place] [address] Performed By: #### 2 777-1, 24969-6, 02817-1, HSTNT, LIPNF, [facility] ####[facility] LABCLIA [id number] [place] [address] [place] STAPHYLOCOCCUS AUREUS AND MR SA SCREEN, PCR, NASALon 10-18-2024 S. aureus and MRSA panel JUAN F+probe (Nose) Not detected Normal Not Detected [facility] Comment on above: Order Comment: Speci men Type: SWABOrdering Facility: [facility] Address: [address] [place] [address] Performed By: #### S APCR ####[facility] LABCLIA [id number] [place] [address] [place] TYPE + SCREENon 10-18-2024 ABO O Normal [facility] Comment on above: Order Comment: Speci men Type: BLOOD SPECIMENOrdering Facility: [facility] Address: [address] [place] [address] Performed By: #### T SCR ####CC [facility] BLOOD BANKCLIA [id number] [place] [address] [place] Rh Nom (Bld) Positive Normal [facility] Comment on above: Order Comment: Speci men Type: BLOOD SPECIMENOrdering Facility: [facility] Address: [address] [place] [address] Performed By: #### T SCR ####CC [facility] BLOOD BANKCLIA [id number] [address] [place] TYPE AND SCREEN EXPIRATION 10/21/2024 23:59 Normal [facility] Comment on above: Order Comment: Speci men Type: BLOOD SPECIMENOrdering Facility: [facility] Address: [address] [place] [address] Performed By: #### T SCR ####CC [facility] BLOOD BANKCLIA [id number] [place] [address] [place] aPTT PPPon 10-18-2024 aPTT Coag (PPP) [Time] 28.4 s Normal 23.0-32.4 [facility] Comment on above: Order Comment: Speci men Type: BLOOD SPECIMENOrdering Facility: [facility] Address: [address] [place] [address] Performed By: #### 3 4528-0, 49339-7 ####[facility] LABCLIA [id number] [place] [address] [place] aPTT Coag (PPP) [Time] 27.9 s Normal 23.0-32.4 [facility] Comment on above: Order Comment: Speci men Type: BLOOD SPECIMEN Ordering Facility: [facility] Address: [address] [place] [address] Performed By: #### 2 4323-8, 3040-3, 56741-3, 65160-1, [id number] #### [facility] CLIA [id number] [address] [place] [address] [place] Basic metabolic 2000 panelon 10-16-2024 Anion gap [Moles/Vol] 12 mmol/L Normal 8-15 [facility] Comment on above: Order Comment: Speci men Type: BLOOD SPECIMENOrdering Facility: [facility] Address: [address] [place] [address] Performed By: #### 2 4321-2 ####[facility]ORYCLIA [id number] [place] [address] [place] Calcium [Mass/Vol] 9.8 mg/dL Normal 8.5-10.2 [facility] Comment on above: Order Comment: Speci men Type: BLOOD SPECIMENOrdering Facility: [facility] Address: [address] [place] [address] Performed By: #### 2 4321-2 ####[facility] LABORATORYCLIA [id number] [place] [address] [place] Chloride [Moles/Vol] 101 mmol/L Normal 98-107 [facility] Comment on above: Order Comment: Speci men Type: BLOOD SPECIMENOrdering Facility: [facility] Address: [address] [place] [address] Performed By: #### 2 4321-2 ####[facility]ATORYCLIA [id number] [place] [address] [place] CO2 [Moles/Vol] 24 mmol/L Normal 22-30 [facility] Comment on above: Order Comment: Speci men Type: BLOOD SPECIMENOrdering Facility: [facility] Address: [address] [place] [address] Performed By: #### 2 4321-2 ####[facility]ATORYCLIA [id number] [place] [address] [place] Creatinine [Mass/Vol] 0.94 mg/dL Normal 0.73-1.22 [facility] Comment on above: Order Comment: Speci men Type: BLOOD SPECIMENOrdering Facility: [facility] Address: [address] [place] [address] Performed By: #### 2 4321-2 ####[facility] LABORATORYCLIA [id number] [place] [address] [place] Creatinine and Glomerular filtration rate.predicted panel (S/P/Bld) 86 mL/min/1.73m??? Normal >=60 [facility] Comment on above: Order Comment: Jose Cruz johnson Type: BLOOD SPECIMENOrdering Facility: [facility] Address: [address] [place] [address] Result Comment: Mary Kay mated Glomerular Filtration [...] actual GFR. Performed By: #### 2 4321-2 ####[facility] LABORATORYCLIA [id number] [place] [address] [place] Glucose [Mass/Vol] 245 mg/dL High 74-99 [facility] Comment on above: Order Comment: Jose Cruz johnson Type: BLOOD SPECIMENOrdering Facility: [facility] Address: [address] [place] [address] Result Comment: The [place] Diabetes Association (ADA) provides guidance for cutoff [...] Standards of Medical Care in Diabetes 2016, [place] [employer] Association. Diabetes Care. 2016.39(Suppl 1). Performed By: #### 2 4321-2 ####[facility] LABORATORYCLIA [id number] [place] [id number] [place] Potassium [Moles/Vol] 5.3 mmol/L High 3.7-5.1 [facility] Comment on above: Order Comment: Speci men Type: BLOOD SPECIMENOrdering Facility: [facility] Address: [address] [place] [address] Performed By: #### 2 4321-2 ####[facility] LABORATORYCLIA [id number] [place] [id number] [place] Sodium [Moles/Vol] 137 mmol/L Normal 136-144 [facility] Comment on above: Order Comment: Speci men Type: BLOOD SPECIMENOrdering Facility: [facility] Address: [address] [place] [address] Performed By: #### 2 4321-2 ####[facility] LABORATORYCLIA [id number] [place] [address] [place] Urea nitrogen [Mass/Vol] 23 mg/dL Normal 9-24 [facility] Comment on above: Order Comment: Speci men Type: BLOOD SPECIMENOrdering Facility: [facility] Address: [address] [place] [address] Performed By: #### 2 4321-2 ####[facility] LABORATORYCLIA [id number] [place] [address] [place] CNOVon 10-09-2024 CNOV Normal [facility] CNPTOUTREACHon 10-09-2024 CNPTOUTREACH Normal [facility] CBC panel Auto (Bld)on 10-06 Erythrocyte distribution width (RBC) [Ratio] 12.4 % Normal 11.5-15.0 [facility] Comment on above: Order Comment: Speci men Type: BLOOD SPECIMEN Order[facility] Address: [address] [place] [address] Performed By: #### 2 4323-8, 3040-3, 71066-0, 41867-4, [id number] #### [facility] CLIA [id number] [address] [place] [address] [place] Hematocrit (Bld) [Volume fraction] 33.0 % Low 39.0-51.0 [facility] Comment on above: Order Comment: Speci men Type: BLOOD SPECIMEN Ordering Facility: [facility] Address: [address] [place], [place] [address] Performed By: #### 2 4323-8, 3040-3, 69949-9, 62606-6, [id number] #### [facility] CLIA [id number] [address] [place] Hemoglobin (Bld) [Mass/Vol] 11.0 g/dL Low 13.0-17.0 [facility] Comment on above: Order Comment: Speci men Type: BLOOD SPECIMEN Ordering Facility: [facility] Address: [address] [place] [address] Performed By: #### 2 4323-8, 3040-3, 77544-9, 27309-8, [id number] #### [facility] CLIA [id number] [address] MCH (RBC) [Entitic mass] 30.4 pg Normal 26.0-34.0 [facility] Comment on above: Order Comment: Speci men Type: BLOOD SPECIMEN Ordering Facility: [facility] Address: [address] [place] [address] Performed By: #### 2 4323-8, 3040-3, 95368-4, 05961-0, [id number] #### [facility] CLIA [id number] [address] STATES OF [facility]CHC (RBC) [Mass/Vol] 33.3 g/dL Normal 30.5-36.0 [facility] Comment on above: Order Comment: Speci men Type: BLOOD SPECIMEN Ordering Facility: [facility] Address: [address] [place] [address] Performed By: #### 2 4323-8, 3040-3, 02138-9, 73845-1, [id number] #### [facility] CLIA [id number] [address] MCV (RBC) [Entitic vol] 91.2 fL Normal 80.0-100.0 [facility] Comment on above: Order Comment: Speci men Type: BLOOD SPECIMEN Ordering Facility: [facility] Address: [address] [place] [address] Performed By: #### 2 4323-8, 3040-3, 34345-4, 44567-8, [id number] #### [facility] CLIA [id number] 1000 [place] [address] [place] Nucleated RBC (Bld) [#/Vol] 10*3/uL Normal <0.01 [facility] Comment on above: Order Comment: Speci men Type: BLOOD SPECIMEN Ordering Facility: [facility] Address: [address] [place] [address] Performed By: #### 2 4323-8, 3040-3, 54752-8, 36533-3, [id number] #### [facility] CLIA [id number] [address] [place] [address] [place] Platelet mean volume (Bld) [Entitic vol] 9.9 fL Normal 9.0-12.7 [facility] Comment on above: Order Comment: Speci men Type: BLOOD SPECIMEN Ordering Facility: [facility] Address: [address] [place] [address] Performed By: #### 2 4323-8, 3040-3, 59728-9, 36526-9, [id number] #### [facility] CLIA [id number] [address] [place] [address] [facility] [place] Platelets (Bld) [#/Vol] 215 10*3/uL Normal 150-400 [facility] Comment on above: Order Comment: Speci men Type: BLOOD SPECIMEN Ordering Facility: [facility] Address: [address] [place] [address] Performed By: #### 2 4323-8, 3040-3, 59784-1, 92645-0, [id number] #### [facility] CLIA [id number] [address] [place] [address] [place] RBC (Bld) [#/Vol] 3.62 10*6/uL Low 4.20-6.00 [facility] Comment on above: Order Comment: Speci men Type: BLOOD SPECIMEN Order[facility] Address: [address] [place] [address] Performed By: #### 2 4323-8, 3040-3, 35746-9, 17997-9, [id number] #### [facility] CLIA [id number] [address] [place] [address] [place] WBC (Bld) [#/Vol] 8.17 10*3/uL Normal 3.70-11.00 [facility] Comment on above: Order Comment: Speci men Type: BLOOD SPECIMEN Ordering Facility: [facility] Address: [address] [place], [place] [address] [address] Performed By: #### 2 4323-8, 3040-3, 55646-2, 69548-0, [id number] #### [facility] CLIA [id number] [address] [place] [address] [place] CNDSon 10-06-2024 CNDS HNO ID: [id number] Author: KENNETH ANTUNEZ MD Service: Hospital Medicine [...] and hypertension (HCC) [place] (acute kidney injury) ([facility]) Obesity, Class III, BMI >= [...] DISCHARGE: FOLLOW-UP APPOINTMENTS ALREADY SCHEDULED WITH A [facility] PROVIDER: Future Appointments Date Time Provider Department Center 12/01/2024 11:20 AM PST [facility] 01/15/2025 1:00 PM Davin Moarn MD [facility] ALLERGIES Allergen Reactions Atorvastatin Myalgia [...] tablet by mouth once daily DEXCOM G7 NEWS ANALYST Misc Generic drug: Blood-Glucose Meter,Continuous Check glucose [...] XARELTO Take 1 (more content not included)... [facility] CONSULT PROGon 10-06-2024 CONSULT PROG HNO ID: [id number] Author: GEM WALDEN MD Service: Nephrology Author [...] metoprolol 12.5 mg every 12 hours Normal [facility] Comprehensive metabolic 2000 panelon 10-06-2024 Albumin [Mass/Vol] 4.1 g/dL Normal 3.9-4.9 [facility] Comment on above: Order Comment: Speci men Type: BLOOD SPECIMEN Ordering Facility[facility] Address: [address] [place] [address] Performed By: #### 2 4323-8, 3040-3, 83475-3, 28034-0, [id number] #### [facility] CLIA [id number] [address] STATES [facility] ALP [Catalytic activity/Vol] 55 U/L Normal 38-113 [facility] Comment on above: Order Comment: Speci men Type: BLOOD SPECIMEN Ordering Facility: [facility] Address: [address] [place] [address] Performed By: #### 2 4323-8, 3040-3, 53854-8, 52461-8, [id number] #### [facility] CLIA [id number] [address] [place] [address] [place] ALT [Catalytic activity/Vol] 10 U/L Normal 10-54 [facility] Comment on above: Order Comment: Speci men Type: BLOOD SPECIMEN Ordering Facility: [facility] Address: [address] [place] [address] Performed By: #### 2 4323-8, 3040-3, 84784-2, 84421-0, [id number] #### [facility] CLIA [id number] [address] [place] Anion gap [Moles/Vol] 9 mmol/L Normal 8-15 [facility] Comment on above: Order Comment: Speci men Type: BLOOD SPECIMEN Ordering Facility: [facility] Address: [address] [place] [address] Performed By: #### 2 4323-8, 3040-3, 75586-9, 56820-8, [id number] #### [facility] CLIA [id number] [address] [place] [address] [place] AST [Catalytic activity/Vol] 13 U/L Low 14-40 [facility] Comment on above: Order Comment: Speci men Type: BLOOD SPECIMEN Ordering Facility: [facility] Address: [address] [place] [address] Performed By: #### 2 4323-8, 3040-3, 76816-2, 18683-2, [id number] #### [facility] CLIA [id number] [address] [place] [address] [place] Bilirubin [Mass/Vol] 0.3 mg/dL Normal 0.2-1.3 [facility] Comment on above: Order Comment: Speci men Type: BLOOD SPECIMEN Ordering Facility: [facility] Address: [address] [place] [address] Performed By: #### 2 4323-8, 3040-3, 05843-8, 72711-6, [id number] #### [facility] CLIA [id number] [address] [place] [address] [place] Calcium [Mass/Vol] 9.0 mg/dL Normal 8.5-10.2 [facility] Comment on above: Order Comment: Speci men Type: BLOOD SPECIMEN Ordering Facility: [facility] Address: [address] [place] [address] Performed By: #### 2 4323-8, 3040-3, 12676-1, 73518-5, [id number] #### [facility] CLIA [id number] [address] [place] [address] [place] Chloride [Moles/Vol] 105 mmol/L Normal 98-107 [facility] Comment on above: Order Comment: Speci men Type: BLOOD SPECIMEN Ordering Facility: [facility] Address: [address] [place] [address] Performed By: #### 2 4323-8, 3040-3, 30242-7, 26480-6, [id number] #### [facility] CLIA [id number] [address] [place] [address] [place] CO2 [Moles/Vol] 26 mmol/L Normal 22-30 [facility] Comment on above: Order Comment: Speci men Type: BLOOD SPECIMEN Ordering Facility: [facility] Address: [address] [place] [address] Performed By: #### 2 4323-8, 3040-3, 45261-6, 19579-7, [id number] #### [facility] CLIA [id number] [address] [place] [address] [place] Creatinine [Mass/Vol] 1.20 mg/dL Normal 0.73-1.22 [facility] Comment on above: Order Comment: Jose Cruz johnson Type: BLOOD SPECIMEN Ordering Facility: [facility] Address: [address] [place] [address] Performed By: #### 2 4323-8, 3040-3, 39787-7, 67785-6, [id number] #### [facility] CLIA [id number] [address] [place] [address] [place] Creatinine and Glomerular filtration rate.predicted panel (S/P/Bld) 64 mL/min/1.73m??? Normal >=60 [facility] Comment on above: Order Comment: Jose Cruz johnson Type: BLOOD SPECIMEN Ordering Facility: [facility] Address: [address] [place] [address] Result Comment: Mary Kay mated Glomerular Filtration [...] GFR. Performed By: #### 2 4323-8, 3040-3, 77612-3, 55030-3, [id number] #### [facility] CLIA [id number] [address] [place] [address] [place] Glucose [Mass/Vol] 148 mg/dL High 74-99 [facility] Comment on above: Order Comment: Jose Cruz johnson Type: BLOOD SPECIMEN Ordering Facility: [facility] Address: [address] [place] [address] Result Comment: The [place] Diabetes Association (ADA) provides guidance for cutoff [...] Standards of Medical Care in Diabetes 2016, [place] Diabetes Association. Diabetes Care. 2016.39(Suppl 1). Performed By: #### 2 4323-8, 3040-3, 19961-4, 57437-8, [id number] #### [facility] CLIA [id number] [address] [place] [address] [place] Potassium [Moles/Vol] 4.8 mmol/L Normal 3.7-5.1 [facility] Comment on above: Order Comment: Speci men Type: BLOOD SPECIMEN Ordering Facility: [facility] Address: [address] [place] [address] Performed By: #### 2 4323-8, 3040-3, 43020-5, 69291-0, [id number] #### [facility] CLIA [id number] [address] [place] [address] [place] Protein [Mass/Vol] 7.1 g/dL Normal 6.3-8.0 [facility] Comment on above: Order Comment: Speci men Type: BLOOD SPECIMEN Ordering Facility: [facility] Address: [address] [place] [id number] Performed By: #### 2 4323-8, 3040-3, 60016-3, 31656-3, [id number] #### [facility] CLIA [id number] [address] STATES [place] Sodium [Moles/Vol] 140 mmol/L Normal 136-144 [facility] Comment on above: Order Comment: Speci men Type: BLOOD SPECIMEN Ordering Facility: [facility] Address: [address] [place] [address] Performed By: #### 2 4323-8, 3040-3, 03786-8, 74653-0, [id number] #### [facility] CLIA [id number] [address] [place] [address] [place] Urea nitrogen [Mass/Vol] 23 mg/dL Normal 9-24 [facility] Comment on above: Order Comment: Speci men Type: BLOOD SPECIMEN Ordering Facility: [facility] Address: [address] [place] [address] Performed By: #### 2 4323-8, 3040-3, 57065-2, 23749-7, [id number] #### [facility] CLIA [id number] [address] [place] Magnesium SerPl-mCncon 10-06 Magnesium [Mass/Vol] 1.7 mg/dL Normal 1.7-2.3 [facility] Comment on above: Order Comment: Speci men Type: BLOOD SPECIMEN Ordering Facility: [facility] Address: [address] [place] [address] Performed By: #### 2 4323-8, 3040-3, 05031-4, 13659-7, [id number] #### [facility] CLIA [id number] [address] Phosphate SerPl-mCncon 10-06 Phosphate [Mass/Vol] 3.4 mg/dL Normal 2.7-4.8 [facility] Comment on above: Order Comment: Speci men Type: BLOOD SPECIMEN Ordering Facility: [facility] Address: [address] [place] [address] Performed By: #### 2 4323-8, 3040-3, 46190-9, 12239-5, [id number] #### [facility] CLIA [id number] [address] [place] CBC panel Auto (Bld)on 10-05 Erythrocyte distribution width (RBC) [Ratio] 12.9 % Normal 11.5-15.0 [facility] Comment on above: Order Comment: Speci men Type: BLOOD SPECIMEN Ordering Facility: [facility] Address: [address] [place], [place] [address] Performed By: #### 2 4323-8, 3040-3, 02596-2, 64440-5, [id number] #### [facility] CLIA [id number] [address] [place] Hematocrit (Bld) [Volume fraction] 29.6 % Low 39.0-51.0 [facility] Comment on above: Order Comment: Speci men Type: BLOOD SPECIMEN Ordering Facility: [facility] Address: [address] [place] [address] Performed By: #### 2 4323-8, 3040-3, 99486-1, 36425-2, [id number] #### [facility] CLIA [id number] [address] [place] [address] [place] Hemoglobin (Bld) [Mass/Vol] 9.8 g/dL Low 13.0-17.0 [facility] Comment on above: Order Comment: Speci men Type: BLOOD SPECIMEN Ordering Facility: [facility] Address: [address] [place] [address] Performed By: #### 2 4323-8, 3040-3, 03414-0, 29539-5, [id number] #### [facility] CLIA [id number] [address] [place] MCH (RBC) [Entitic mass] 30.2 pg Normal 26.0-34.0 [facility] [facility] Comment on above: Order Comment: Speci men Type: BLOOD SPECIMEN Ordering Facility: [facility] Address: [address] [place] [address] Performed By: #### 2 4323-8, 3040-3, 19742-7, , [id number] #### [facility] CLIA [id number] [address] [place] [facility] MCHC (RBC) [Mass/Vol] 33.1 g/dL Normal 30.5-36.0 [facility] Comment on above: Order Comment: Speci men Type: BLOOD SPECIMEN Ordering Facility: [facility] Address: [address] [place] [address] Performed By: #### 2 4323-8, 3040-3, 78835-9, 38551-5, [id number] #### [facility] CLIA [id number] [address] MCV (RBC) [Entitic vol] 91.1 fL Normal 80.0-100.0 [facility] Comment on above: Order Comment: Speci men Type: BLOOD SPECIMEN Ordering Facility: [facility] Address: [address] [place] [address] Performed By: #### 2 4323-8, 3040-3, 60262-0, 11858-7, [id number] #### [facility] CLIA [id number] [address] [place] [address] [place] Nucleated RBC (Bld) [#/Vol] 10*3/uL Normal <0.01 [facility] Comment on above: Order Comment: Speci men Type: BLOOD SPECIMEN Ordering Facility: [facility] Address: [address] [place] [address] Performed By: #### 2 4323-8, 3040-3, 37743-6, 86167-9, [id number] #### [facility] CLIA [id number] [address] [place] [address] [place] Platelet mean volume (Bld) [Entitic vol] 9.9 fL Normal 9.0-12.7 [facility] Comment on above: Order Comment: Speci men Type: BLOOD SPECIMEN Ordering Facility: [facility] Address: [address] [place] [address] Performed By: #### 2 4323-8, 3040-3, 84688-3, 52985-8, [id number] #### [facility] CLIA [id number] [address] [place] [address] [place] Platelets (Bld) [#/Vol] 194 10*3/uL Normal 150-400 [facility] Comment on above: Order Comment: Speci men Type: BLOOD SPECIMEN Ordering Facility: [facility] Address: [address] [place] [address] Performed By: #### 2 4323-8, 3040-3, 07289-7, 69705-1, [id number] #### [facility] CLIA [id number] [address] [place] [address] [place] RBC (Bld) [#/Vol] 3.25 10*6/uL Low 4.20-6.00 [facility] Comment on above: Order Comment: Speci men Type: BLOOD SPECIMEN Ordering Facility: [facility] Address: [address] [place] [address] Performed By: #### 2 4323-8, 3040-3, 29174-8, 27466-5, [id number] #### [facility] CLIA [id number] [address] [place] [address] [place] WBC (Bld) [#/Vol] 6.87 10*3/uL Normal 3.70-11.00 [facility] Comment on above: Order Comment: Speci men Type: BLOOD SPECIMEN Ordering Facility: [facility] Address: [facility] [address] Performed By: #### 2 4323-8, 3040-3, 24366-6, 82323-3, [id number] #### [facility] CLIA [id number] [address] [place] [address] [facility] [place] CONSULT PROGon 10-05-2024 CONSULT PROG HNO ID: [id number] Author: GEM WALDEN MD Service: Nephrology Author [...] Check renal function panel at 12 noon [facility] Comprehensive metabolic 2000 panelon 10-05-2024 Albumin [Mass/Vol] 3.7 g/dL Low 3.9-4.9 [facility] Comment on above: Order Comment: Speci men Type: BLOOD SPECIMEN Ordering Facility: [facility] Address: [address] [place] [address] Performed By: #### 2 4323-8, 2776-09, #### [facility] CLIA [id number] [address] [place] [address] [place] ALP [Catalytic activity/Vol] 49 U/L Normal 38-113 [facility] Comment on above: Order Comment: Speci men Type: BLOOD SPECIMEN Ordering Facility: [facility] Address: [address] [place] [address] Performed By: #### 2 4323-8, 2776-09, #### [facility] CLIA [id number] [address] [place] [address] [place] ALT [Catalytic activity/Vol] 8 U/L Low 10-54 [facility] Comment on above: Order Comment: Speci men Type: BLOOD SPECIMEN Ordering Facility: [facility] Address: [address] [place] [address] Performed By: #### 2 4323-8, 2776-09, #### [facility] CLIA [id number] [address] [place] [address] [place] Anion gap [Moles/Vol] 8 mmol/L Normal 8-15 [facility] Comment on above: Order Comment: Speci men Type: BLOOD SPECIMEN Ordering Facility: [facility] Address: [address] [place] [address] Performed By: #### 2 4323-8, 2776-09, #### [facility] CLIA [id number] [address] [place] [address] [place] AST [Catalytic activity/Vol] 13 U/L Low 14-40 [facility] Comment on above: Order Comment: Speci men Type: BLOOD SPECIMEN Ordering Facility: [facility] Address: [address] [place] [address] Performed By: #### 2 4323-8, 2776-09, #### [facility] CLIA [id number] [address] [place] [address] [place] Bilirubin [Mass/Vol] 0.3 mg/dL Normal 0.2-1.3 [facility] Comment on above: Order Comment: Speci men Type: BLOOD SPECIMEN Ordering Facility: [facility] Address: [address] [place] [address] Performed By: #### 2 4323-8, 2771, #### [facility] CLIA [id number] [address] [place] [address] [place] Calcium [Mass/Vol] 8.7 mg/dL Normal 8.5-10.2 [facility] Comment on above: Order Comment: Speci men Type: BLOOD SPECIMEN Ordering Facility: [facility] Address: [address] [place] [address] Performed By: #### 2 4323-8, 27703-20, #### [facility] CLIA [id number] [address] [place] [address] [place] Chloride [Moles/Vol] 107 mmol/L Normal 98-107 [facility] Comment on above: Order Comment: Speci men Type: BLOOD SPECIMEN Ordering Facility: [facility] Address: [address] [place] [address] Performed By: #### 2 4323-8, 2776-09, #### [facility] CLIA [id number] [address] [place] [address] [place] CO2 [Moles/Vol] 24 mmol/L Normal 22-30 [facility] Comment on above: Order Comment: Speci men Type: BLOOD SPECIMEN Ordering Facility: [facility] Address: [address] [place] [address] Performed By: #### 2 4323-8, 27703-20, #### [facility] CLIA [id number] [address] [place] [address] [place] Creatinine [Mass/Vol] 1.31 mg/dL High 0.73-1.22 [facility] Comment on above: Order Comment: Speci men Type: BLOOD SPECIMEN Ordering Facility: [facility] Address: [address] [place] [address] Performed By: #### 2 4323-8, 2777-1, 69400-3 #### [facility] CLIA [id number] [address] OF [facility] Creatinine and Glomerular filtration rate.predicted panel (S/P/Bld) 58 mL/min/1.73m??? Low >=60 [facility] Comment on above: Order Comment: Jose Cruz johnson Type: BLOOD SPECIMEN Ordering Facility: [facility] Address: [address] [place] [address] Result Comment: Mary Kay mated Glomerular Filtration [...] GFR. Performed By: #### 2 4323-8, 2777-, 93543-9 #### [facility] CLIA [id number] [address] [place] [address] [place] Glucose [Mass/Vol] 100 mg/dL High 74-99 [facility] Comment on above: Order Comment: Jose Cruz johnson Type: BLOOD SPECIMEN Ordering Facility: [facility] Address: [address] [place] [address] Result Comment: [place] Diabetes Association (ADA) provides guidance for cutoff [...] Standards of Medical Care in Diabetes 2016, [place] Diabetes Association. Diabetes Care. 2016.39(Suppl 1). Performed By: #### 2 4323-8, 2777-1, 70774-2 #### [facility] CLIA [id number] [address] [place] [address] [place] Potassium [Moles/Vol] 5.5 mmol/L High 3.7-5.1 [facility] Comment on above: Order Comment: Speci men Type: BLOOD SPECIMEN Ordering Facility: [facility] Address: [address] [place] [address] Performed By: #### 2 4323-8, 2771, #### [facility] CLIA [id number] [address] [place] [address] [place] Protein [Mass/Vol] 6.4 g/dL Normal 6.3-8.0 [facility] Comment on above: Order Comment: Speci men Type: BLOOD SPECIMEN Ordering Facility: [facility] Address: [address] [place] [address] Performed By: #### 2 4323-8, 27703-20, #### [facility] CLIA [id number] [address] [place] [address] [place] Sodium [Moles/Vol] 139 mmol/L Normal 136-144 [facility] Comment on above: Order Comment: Speci men Type: BLOOD SPECIMEN Ordering Facility: [facility] Address: [address] [place] [address] Performed By: #### 2 4323-8, 2776-09, #### [facility] CLIA [id number] [address] [place] [address] [place] Urea nitrogen [Mass/Vol] 27 mg/dL High 9-24 [facility] Comment on above: Order Comment: Speci men Type: BLOOD SPECIMEN Ordering Facility: [facility] Address: [address] [place], [place] [address] Performed By: #### 2 4323-8, 2776-09, #### [facility] CLIA [id number] [address] [place] [address] [place] Magnesium SerPl-mCncon 10-05 Magnesium [Mass/Vol] 1.8 mg/dL Normal 1.7-2.3 [facility] Comment on above: Order Comment: Speci men Type: BLOOD SPECIMEN Ordering Facility: [facility] Address: [address] [place] [id number] Performed By: #### 2 4323-8, 2777-1, #### [facility] CLIA [id number] [address] [place] [address] [place] Phosphate SerPl-mCncon 10-05 Phosphate [Mass/Vol] 3.9 mg/dL Normal 2.7-4.8 [facility] Comment on above: Order Comment: Speci men Type: BLOOD SPECIMEN Ordering Facility: [facility] Address: [address] [place] [address] Performed By: #### 2 4323-8, 2777-1, #### [facility] CLIA [id number] [address] [place] Renal function 2000 panelon 10-05-2024 Albumin [Mass/Vol] 3.9 g/dL Normal 3.9-4.9 [facility] Comment on above: Order Comment: Speci men Type: BLOOD SPECIMEN Ordering Facility: [facility] Address: [address] [place] [address] Performed By: #### 2 4323-8, 3040-3, 56722-2, 29425-8, [id number] #### [facility] CLIA [id number] [address] [place] [address] [place] Anion gap [Moles/Vol] 12 mmol/L Normal 8-15 [facility] Comment on above: Order Comment: Speci men Type: BLOOD SPECIMEN Ordering Facility: [facility] Address: [address] [place], [place] [address] Performed By: #### 2 4323-8, 3040-3, 65116-1, 30509-9, [id number] #### [facility] CLIA [id number] [address] [place] [address] [place] Calcium [Mass/Vol] 8.9 mg/dL Normal 8.5-10.2 [facility] Comment on above: Order Comment: Speci men Type: BLOOD SPECIMEN Ordering Facility: [facility] Address: [address] [place] [address] Performed By: #### 2 4323-8, 3040-3, 92847-4, 51752-6, [id number] #### [facility] CLIA [id number] [address] [place] [address] [place] Chloride [Moles/Vol] 101 mmol/L Normal 98-107 [facility] Comment on above: Order Comment: Speci men Type: BLOOD SPECIMEN Ordering Facility: [facility] Address: [address] [place] [address] Performed By: #### 2 4323-8, 3040-3, 40392-1, 12589-1, [id number] #### [facility] CLIA [id number] [address] [place] [address] [place] CO2 [Moles/Vol] 22 mmol/L Normal 22-30 [facility] Comment on above: Order Comment: Speci men Type: BLOOD SPECIMEN Ordering Facility: [facility] Address: [address] [place] [address] Performed By: #### 2 4323-8, 3040-3, 81296-8, 11762-7, [id number] #### [facility] CLIA [id number] [address] [place] [address] [place] Creatinine [Mass/Vol] 1.12 mg/dL Normal 0.73-1.22 [facility] Comment on above: Order Comment: Speci men Type: BLOOD SPECIMEN Ordering Facility: [facility] Address: [address] [place] [address] Performed By: #### 2 4323-8, 3040-3, 06289-0, 78885-6, [id number] #### [facility] CLIA [id number] [address] [place] [address] [facility] [place] Creatinine and Glomerular filtration rate.predicted panel (S/P/Bld) 70 mL/min/1.73m??? Normal >=60 [facility] Comment on above: Order Comment: Speci men Type: BLOOD SPECIMEN Ordering Facility: [facility] Address: [address] [place] [address] Result Comment: Mary Kay mated Glomerular Filtration [...] GFR. Performed By: #### 2 4323-8, 3040-3, 04441-5, 10141-6, [id number] #### [facility] CLIA [id number] [address] [place] [address] [place] Glucose [Mass/Vol] 219 mg/dL High 74-99 [facility] Comment on above: Order Comment: Jose Cruz johnson Type: BLOOD SPECIMEN Ordering Facility: [facility] Address: [address] [place] [address] Result Comment: [place] Diabetes Association (ADA) provides guidance for cutoff [...] Standards of Medical Care in Diabetes 2016, [place] Diabetes Association. Diabetes Care. 2016.39(Suppl 1). Performed By: #### 2 4323-8, 3040-3, 64080-4, 46879-3, [id number] #### [facility] CLIA [id number] [address] [place] [address] [place] Phosphate [Mass/Vol] 3.4 mg/dL Normal 2.7-4.8 [facility] Comment on above: Order Comment: Jose Cruz johnson Type: BLOOD SPECIMEN Ordering Facility: [facility] Address: [address] [place], [place] [address] Performed By: #### 2 4323-8, 3040-3, 46766-7, 42569-5, [id number] #### [facility] CLIA [id number] [address] [place] [address] [place] Potassium [Moles/Vol] 4.8 mmol/L Normal 3.7-5.1 [facility] Comment on above: Order Comment: Speci men Type: BLOOD SPECIMEN Ordering Facility: [facility] Address: [address] [place] [address] Performed By: #### 2 4323-8, 3040-3, 66846-2, 80164-5, [id number] #### [facility] CLIA [id number] [address] [place] [address] [place] Sodium [Moles/Vol] 135 mmol/L Low 136-144 [facility] Comment on above: Order Comment: Speci men Type: BLOOD SPECIMEN Ordering Facility: [facility] Address: [address] [place] [address] Performed By: #### 2 4323-8, 3040-3, 05247-9, 38969-4, [id number] #### [facility] CLIA [id number] [address] [place] [address] [place] Urea nitrogen [Mass/Vol] 24 mg/dL Normal 9-24 [facility] Comment on above: Order Comment: Speci men Type: BLOOD SPECIMEN Ordering Facility: [facility] Address: [address] [place] [address] Performed By: #### 2 4323-8, 3040-3, 75599-4, 22414-2, [id number] #### [facility] CLIA [id number] [address] [place] [address] [place] ALBUMIN/CREATININE RATIO, UR INEon 10-04-2024 Albumin DL <= 20 mg/L (U) [Mass/Vol] mg/dL Normal [facility] Comment on above: Order Comment: Speci men Type: BLOOD SPECIMEN Ordering Facility: [facility] Address: [address] [place] [address] Performed By: #### 2 4323-8, 3040-3, 82401-9, 87938-6, [id number] #### [facility] CLIA [id number] [address] [place] [address] [place] Albumin/Creatinine (U) [Mass ratio] <7 Normal <30 [facility] Comment on above: Order Comment: Speci men Type: BLOOD SPECIMEN Ordering Facility: [facility] Address: [address] [place] [address] Result Comment: Adul t Male and Female Nephrotic Criteria: <30 mg/g is considered normal to mildly increased 30-300 mg/g is considered moderately increased >300 mg/g is considered severely increased KDIGO. (2013). KDIGO 2012 Clinical Practice Guideline for the Evaluation and Management of Chronic Kidney Disease. Official Journal of the International Society of Nephrology, 3(1), 1-150. Performed By: #### 2 4323-8, 3040-3, 03185-5, 13740-3, [id number] #### [facility] CLIA [id number] [address] [place] [id number] [place] [address] ALLIED HEALTHon 10-04-2024 [facility] HNO ID: [id number] Author: DERECK HYLTON RDMS Service: ? Author [...] PATIENT PRESENTS WITH AN IMPLANTABLE OR ATTACHED CARDIAC SONOGRAPHER: N/A RADIOLOGY DEPARTMENT: Ultrasound PERIPHERAL IV DATA: Not applicable SIGNED BY: Dereck Hylton RDMS October 04, 2024 11:01 AM Normal [facility] Albumin SerPl-mCncon 025 Albumin [Mass/Vol] 4.0 g/dL Normal 3.9-4.9 [facility] Comment on above: Order Comment: Speci men Type: BLOOD SPECIMEN Ordering Facility: [facility] Address: [address] [place] [address] Performed By: #### 2 4323-8, 3040-3, 63118-0, 45007-5, [id number] #### [facility] CLIA [id number] [address] [place] [address] [place] Basic metabolic 2000 panelon 10-04-2024 Anion gap [Moles/Vol] 15 mmol/L Normal 8-15 [facility] Comment on above: Order Comment: Speci men Type: BLOOD SPECIMEN Ordering Facility: [facility] Address: [address] [place] [address] Performed By: #### 2 4321-2 #### [facility] CLIA [id number] [address] [place] [address] [place] Calcium [Mass/Vol] 9.1 mg/dL Normal 8.5-10.2 [facility] Comment on above: Order Comment: Speci men Type: BLOOD SPECIMEN Ordering Facility: [facility] Address: [address] [place] [address] Performed By: #### 2 4321-2 #### [facility] CLIA [id number] [address] [place] Chloride [Moles/Vol] 104 mmol/L Normal 98-107 [facility] Comment on above: Order Comment: Speci men Type: BLOOD SPECIMEN Ordering Facility: [facility] Address: [address] [place] [address] Performed By: #### 2 4321-2 #### [facility] CLIA [id number] [address] [place] CO2 [Moles/Vol] 17 mmol/L Low 22-30 [facility] Comment on above: Order Comment: Speci men Type: BLOOD SPECIMEN Ordering Facility: [facility] Address: [address] [place] [address] Performed By: #### 2 4321-2 #### [facility] CLIA [id number] [address] [place] [address] [place] Creatinine [Mass/Vol] 1.50 mg/dL High 0.73-1.22 [facility] Comment on above: Order Comment: Speci men Type: BLOOD SPECIMEN Ordering Facility: [facility] Address: [address] [place] [address] Performed By: #### 2 4321-2 #### [facility] CLIA [id number] [address] [place] [address] [place] Creatinine and Glomerular filtration rate.predicted panel (S/P/Bld) 49 mL/min/1.73m??? Low >=60 [facility] Comment on above: Order Comment: Jose Cruz johnson Type: BLOOD SPECIMEN Ordering Facility: [facility] Address: [address] [place] [address] Result Comment: Mary Kay mated Glomerular Filtration [...] GFR. Performed By: #### 2 4321-2 #### [facility] CLIA [id number] [address] [place] [address] [place] Glucose [Mass/Vol] 176 mg/dL High 74-99 [facility] Comment on above: Order Comment: Jose Cruz johnson Type: BLOOD SPECIMEN Ordering Facility: [facility] Address: [address] [place] [address] Result Comment: The [place] Diabetes Association (ADA) provides guidance for cutoff [...] Standards of Medical Care in Diabetes 2016, [place] Diabetes Association. Diabetes Care. 2016.39(Suppl 1). Performed By: #### 2 4321-2 #### [facility] CLIA [id number] [address] [place] [address] [place] Potassium [Moles/Vol] 5.9 mmol/L High 3.7-5.1 [facility] Comment on above: Order Comment: Speci men Type: BLOOD SPECIMEN Ordering Facility: [facility] Address: [address] [place] [address] Performed By: #### 2 4321-2 #### [facility] CLIA [id number] [address] [place] [address] [place] Sodium [Moles/Vol] 136 mmol/L Normal 136-144 [facility] Comment on above: Order Comment: Speci men Type: BLOOD SPECIMEN Ordering Facility: [facility] Address: [address] [place] [address] Performed By: #### 2 4321-2 #### [facility] CLIA [id number] [address] [place] [address] [place] Urea nitrogen [Mass/Vol] 31 mg/dL High 9-24 [facility] Comment on above: Order Comment: Speci men Type: BLOOD SPECIMEN Ordering Facility: [facility] Address: [address] [place] [address] Performed By: #### 2 4321-2 #### [facility] CLIA [id number] [address] [place] [address] [place] Anion gap [Moles/Vol] 10 mmol/L Normal 8-15 [facility] Comment on above: Order Comment: Speci men Type: BLOOD SPECIMEN Ordering Facility: [facility] Address: [address] [place] [address] Performed By: #### 2 4323-8, 3040-3, 50632-4, 26538-2, [id number] #### [facility] CLIA [id number] [address] [place] [address] [place] Calcium [Mass/Vol] 9.0 mg/dL Normal 8.5-10.2 [facility] Comment on above: Order Comment: Speci men Type: BLOOD SPECIMEN Ordering Facility: [facility] Address: [address] [place] [address] Performed By: #### 2 4323-8, 3040-3, 09259-0, 95375-1, [id number] #### [facility] CLIA [id number] [address] [place] [address] [place] Chloride [Moles/Vol] 103 mmol/L Normal 98-107 [facility] Comment on above: Order Comment: Jose Cruz johnson Type: BLOOD SPECIMEN Ordering Facility: [facility] Address: [address] [place] [address] Performed By: #### 2 4323-8, 3040-3, 41475-5, 45199-1, [id number] #### [facility] CLIA [id number] [address] [place] CO2 [Moles/Vol] 21 mmol/L Low 22-30 [facility] Comment on above: Order Comment: Jose Cruz johnson Type: BLOOD SPECIMEN Ordering Facility: [facility] Address: [address] [place] [address] Performed By: #### 2 4323-8, 3040-3, 60093-4, 71878-9, [id number] #### [facility] CLIA [id number] [address] [place] [address] [place] Creatinine [Mass/Vol] 1.69 mg/dL High 0.73-1.22 [facility] Comment on above: Order Comment: Jose Cruz johnson Type: BLOOD SPECIMEN Ordering Facility: [facility] Address: [address] [place] [address] Performed By: #### 2 4323-8, 3040-3, 68274-0, 03690-5, [id number] #### [facility] CLIA [id number] [address] Creatinine and Glomerular filtration rate.predicted panel (S/P/Bld) 43 mL/min/1.73m??? Low >=60 [facility] Comment on above: Order Comment: Jose Cruz johnson Type: BLOOD SPECIMEN Ordering Facility: [facility] Address: [address] [place] [address] Result Comment: Mary Kay mated Glomerular Filtration [...] GFR. Performed By: #### 2 4323-8, 3040-3, 76407-4, 78072-0, [id number] #### [facility] CLIA [id number] [address] [place] [address] [place] [place] Glucose [Mass/Vol] 119 mg/dL High 74-99 [facility] Comment on above: Order Comment: Jose Cruz johnson Type: BLOOD SPECIMEN Ordering Facility: [facility] Address: [address] [place] [address] Result Comment: The [place] Diabetes Association (ADA) provides guidance for cutoff [...] Standards of Medical Care in Diabetes 2016, [place] Diabetes Association. Diabetes Care. 2016.39(Suppl 1). Performed By: #### 2 4323-8, 3040-3, 14893-3, 61721-1, [id number] #### [facility] CLIA [id number] [address] [place] [address] [place] Potassium [Moles/Vol] 5.7 mmol/L High 3.7-5.1 [facility] Comment on above: Order Comment: Jose Cruz johnson Type: BLOOD SPECIMEN Ordering Facility: [facility] Address: [address] [place] [address] Performed By: #### 2 4323-8, 3040-3, 23500-5, 81511-6, [id number] #### [facility] CLIA [id number] [address] [place] [address] [place] Sodium [Moles/Vol] 134 mmol/L Low 136-144 [facility] Comment on above: Order Comment: Jose Cruz johnson Type: BLOOD SPECIMEN Ordering Facility: [facility] Address: [address] [place] [address] Performed By: #### 2 4323-8, 3040-3, 55203-9, 02823-2, [id number] #### [facility] CLIA [id number] [address] [place] [address] [place] Urea nitrogen [Mass/Vol] 31 mg/dL High 9-24 [facility] Comment on above: Order Comment: Speci men Type: BLOOD SPECIMEN Ordering Facility: [facility] Address: [address] [place] [address] Performed By: #### 2 4323-8, 3040-3, 58791-2, 63592-4, [id number] #### [facility] CLIA [id number] [address] [place] [address] [place] Anion gap [Moles/Vol] 11 mmol/L Normal 8-15 [facility] Comment on above: Order Comment: Speci men Type: BLOOD SPECIMEN Ordering Facility: [facility] Address: [address] [place] [address] Performed By: #### 2 4323-8, 3040-3, 79297-5, 36437-1, [id number] #### [facility] CLIA [id number] [address] [place] [address] [place] Calcium [Mass/Vol] 9.3 mg/dL Normal 8.5-10.2 [facility] Comment on above: Order Comment: Speci men Type: BLOOD SPECIMEN Ordering Facility: [facility] Address: [address] [place] [address] Performed By: #### 2 4323-8, 3040-3, 45929-1, 15144-6, [id number] #### [facility] CLIA [id number] [address] [place] [address] [place] Chloride [Moles/Vol] 105 mmol/L Normal 98-107 [facility] Comment on above: Order Comment: Speci men Type: BLOOD SPECIMEN Ordering Facility: [facility] Address: [address] [place] [address] Performed By: #### 2 4323-8, 3040-3, 70813-0, 29233-5, [id number] #### [facility] CLIA [id number] [address] [place] [address] [place] CO2 [Moles/Vol] 22 mmol/L Normal 22-30 [facility] Comment on above: Order Comment: Specmarleny johnson Type: BLOOD SPECIMEN Ordering Facility: [facility] Address: [address] [place] [address] Performed By: #### 2 4323-8, 3040-3, 37072-2, , [id number] #### [facility] CLIA [id number] [address] [place] [address] [place] Creatinine [Mass/Vol] 1.68 mg/dL High 0.73-1.22 [facility] Comment on above: Order Comment: Speci men Type: BLOOD SPECIMEN Ordering Facility: [facility] Address: [address] [place] [address] Performed By: #### 2 4323-8, 3040-3, 71943-3, , [id number] #### [facility] CLIA [id number] [address] STATES OF [facility] Creatinine and Glomerular filtration rate.predicted panel (S/P/Bld) 43 mL/min/1.73m??? Low >=60 [facility] Comment on above: Order Comment: Jose Cruz johnson Type: BLOOD SPECIMEN Ordering Facility: [facility] Address: [address] [place] [address] Result Comment: Mary Kay mated Glomerular Filtration [...] GFR. Performed By: #### 2 4323-8, 3040-3, 13943-2, 41613-1, [id number] #### [facility] CLIA [id number] [address] [place] [address] [place] Glucose [Mass/Vol] 110 mg/dL High 74-99 [facility] Comment on above: Order Comment: Jose Cruz johnson Type: BLOOD SPECIMEN Ordering Facility: [facility] Address: [address] [place] [address] Result Comment: The [place] Diabetes Association (ADA) provides guidance for cutoff [...] Standards of Medical Care in Diabetes 2016, [place] Diabetes Association. Diabetes Care. 2016.39(Suppl 1). Performed By: #### 2 4323-8, 3040-3, 56920-6, 42024-3, [id number] #### [facility] CLIA [id number] [address] [place] [address] [place] Potassium [Moles/Vol] 6.2 mmol/L Critically high 3.7-5.1 [facility] Comment on above: Order Comment: Jose Cruz johnson Type: BLOOD SPECIMEN Ordering Facility: [facility] Address: [address] [place] [address] Performed By: #### 2 4323-8, 3040-3, 82218-2, 07055-8, [id number] #### [facility] CLIA [id number] [address] [place] [address] [place] Sodium [Moles/Vol] 138 mmol/L Normal 136-144 [facility] Comment on above: Order Comment: Jose Cruz johnson Type: BLOOD SPECIMEN Ordering Facility: [facility] Address: [address] [place] [address] Performed By: #### 2 4323-8, 3040-3, 00824-9, 45704-2, [id number] #### [facility] CLIA [id number] [address] [place] [address] [place] Urea nitrogen [Mass/Vol] 30 mg/dL High 9-24 [facility] Comment on above: Order Comment: Speci men Type: BLOOD SPECIMEN Ordering Facility: [facility] Address: [address] [place] [address] Performed By: #### 2 4323-8, 3040-3, 46304-9, 93908-0, [id number] #### [facility] CLIA [id number] [address] OF [facility] CBC panel Auto (Bld)on 10-04 Erythrocyte distribution width (RBC) [Ratio] 13.1 % Normal 11.5-15.0 [facility] Comment on above: Order Comment: Speci men Type: BLOOD SPECIMEN Ordering Facility: [facility] Address: [address] [place] [address] Performed By: #### 2 4323-8, 3040-3, 96892-8, 57685-3, [id number] #### [facility] CLIA [id number] [address] [place] Hematocrit (Bld) [Volume fraction] 33.1 % Low 39.0-51.0 [facility] Comment on above: Order Comment: Speci men Type: BLOOD SPECIMEN Ordering Facility: [facility] Address: [address] [place] [address] Performed By: #### 2 4323-8, 3040-3, 84210-9, 51798-0, [id number] #### [facility] CLIA [id number] [address] [place] Hemoglobin (Bld) [Mass/Vol] 10.6 g/dL Low 13.0-17.0 [facility] Comment on above: Order Comment: Speci men Type: BLOOD SPECIMEN Ordering Facility: [facility] Address: [address] [place] [address] Performed By: #### 2 4323-8, 3040-3, 82675-9, 57818-5, [id number] #### [facility] CLIA [id number] [address] [place] MCH (RBC) [Entitic mass] 29.6 pg Normal 26.0-34.0 [facility] Comment on above: Order Comment: Speci men Type: BLOOD SPECIMEN Ordering Facility: [facility] Address: [address] [place] [address] Performed By: #### 2 4323-8, 3040-3, 44843-9, 55473-8, [id number] #### [facility] CLIA [id number] [address] [place] MCHC (RBC) [Mass/Vol] 32.0 g/dL Normal 30.5-36.0 [facility] Comment on above: Order Comment: Speci men Type: BLOOD SPECIMEN Ordering Facility: [facility] Address: [address] [place] [address] Performed By: #### 2 4323-8, 3040-3, 63079-2, 97437-1, [id number] #### [facility] CLIA [id number] [address] [place] [address] [place] MCV (RBC) [Entitic vol] 92.5 fL Normal 80.0-100.0 [facility] Comment on above: Order Comment: Speci men Type: BLOOD SPECIMEN Ordering Facility: [facility] Address: [address] [place] [address] Performed By: #### 2 4323-8, 3040-3, 18303-8, , [id number] #### [facility] CLIA [id number] [address] [place] Nucleated RBC (Bld) [#/Vol] 10*3/uL Normal <0.01 [facility] Comment on above: Order Comment: Speci men Type: BLOOD SPECIMEN Ordering Facility: [facility] Address: [address] [place] [address] Performed By: #### 2 4323-8, 3040-3, 93925-7, 16990-6, [id number] #### [facility] CLIA [id number] [address] [place] Platelet mean volume (Bld) [Entitic vol] 10.7 fL Normal 9.0-12.7 [facility] Comment on above: Order Comment: Speci men Type: BLOOD SPECIMEN Ordering Facility: [facility] Address: [address] [place] [address] Performed By: #### 2 4323-8, 3040-3, 75049-1, 57826-1, [id number] #### [facility] CLIA [id number] [address] [place] [address] [place] Platelets (Bld) [#/Vol] 233 10*3/uL Normal 150-400 [facility] Comment on above: Order Comment: Speci men Type: BLOOD SPECIMEN Ordering Facility: [facility] Address: [address] [place] [address] Performed By: #### 2 4323-8, 3040-3, 79392-4, 91474-8, [id number] #### [facility] CLIA [id number] [address] [place] [address] [place] RBC (Bld) [#/Vol] 3.58 10*6/uL Low 4.20-6.00 [facility] Comment on above: Order Comment: Speci men Type: BLOOD SPECIMEN Ordering Facility: [facility] Address: [address] [place] [address] Performed By: #### 2 4323-8, 3040-3, 37630-8, 29558-0, [id number] #### [facility] CLIA [id number] [address] [place] [address] [place] WBC (Bld) [#/Vol] 10.66 10*3/uL Normal 3.70-11.00 [facility] Comment on above: Order Comment: Speci men Type: BLOOD SPECIMEN Ordering Facility: [facility] Address: [address] [place] [address] Performed By: #### 2 4323-8, 3040-3, 94620-7, 62031-9, [id number] #### [facility] CLIA [id number] [address] [place] CONSULTon 10-04-2024 CONSULT HNO ID: [id number] Author: GEM WALDEN MD Service: Nephrology Author [...] diet. Patient is down to 6.2 Patient's [employer] medication lisinopril 5 mg daily metoprolol 25 mg daily Aldactone 25 mg daily amlodipine 5 mg daily. Patient was on Xarelto. Denies taking any potassium tablet. Eats regular diet. 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 Normal [facility] Creat ?Tm Ur-mCncon 10-04-19 25 Creatinine (U) [Mass/Vol] 179.8 mg/dL Normal 20.0-300.0 [facility] Comment on above: Order Comment: Speci men Type: BLOOD SPECIMEN Ordering Facility: [facility] Address: [address] [place] [address] Performed By: #### 2 4323-8, 3040-3, 12924-3, 18270-9, [id number] #### [facility] CLIA [id number] [address] [place] [address] [place] Gas and Carbon monoxide pane l (BldV)on 10-04-2024 BASE DEFICIT, VENOUS -4 mmol/L Low -2-0 [facility] Comment on above: Order Comment: Dahian[place] men Type: BLOOD SPECIMEN Ordering Facility: [facility] Address: [address] [place] [address] Performed By: #### 2 4323-8, 3040-3, 44112-3, 22010-9, [id number] #### [facility] CLIA [id number] [address] [place] [address] [place] Carboxyhemoglobin (BldV) [Mass fraction] 1.1 % Normal 0.0-2.0 [facility] Comment on above: Order Comment: Speci men Type: BLOOD SPECIMEN Ordering Facility: [facility] Address: [address] [place] [address] Result Comment: Carb oxyhemoglobin Reference Range for Smokers: 2.0-8.0% Performed By: #### 2 4323-8, 3040-3, 83440-6, 03210-5, [id number] #### [facility] CLIA [id number] [address] [place] [address] [place] CO2 (BldV) [Partial pressure] 46 mm[Hg] Normal 42-55 [facility] Comment on above: Order Comment: Dahian[place] men Type: BLOOD SPECIMEN Ordering Facility: [facility] Address: [address] [place] [address] Performed By: #### 2 4323-8, 3040-3, 28822-8, 30653-6, [id number] #### [facility] CLIA [id number] [address] [place] [address] [place] CO2 adjusted to patient's actual temperature (BldV) [Partial pressure] Normal [facility] Comment on above: Order Comment: Speci men Type: BLOOD SPECIMEN Ordering Facility: [facility] Address: [address] [place] [address] Performed By: #### 2 4323-8, 3040-3, 78939-2, 74890-4, [id number] #### [facility] CLIA [id number] [address] [place] [address] [place] HCO3 (Bld) [Moles/Vol] 23 mmol/L Low 24-28 [facility] Comment on above: Order Comment: Speci men Type: BLOOD SPECIMEN Ordering Facility: [facility] Address: [address] [place] [address] Performed By: #### 2 4323-8, 3040-3, 82004-1, , [id number] #### [facility] CLIA [id number] [address] [place] [address] [place] Hemoglobin (Bld) [Mass/Vol] 10.6 g/dL Low 13.0-17.0 [facility] Comment on above: Order Comment: Speci men Type: BLOOD SPECIMEN Ordering Facility: [facility] Address: [address] [place] [address] Performed By: #### 2 4323-8, 3040-3, 34364-9, , [id number] #### [facility] CLIA [id number] [address] [place] [address] [place] Lactate [Moles/Vol] 0.7 mmol/L Normal 0.5-2.2 [facility] Comment on above: Order Comment: Speci men Type: BLOOD SPECIMEN Ordering Facility: [facility] Address: [address] [place] [address] Performed By: #### 2 4323-8, 3040-3, 31835-9, 59723-5, [id number] #### [facility] CLIA [id number] [address] [place] Methemoglobin (Bld) [Mass fraction] % Normal 0.0-1.5 [facility] Comment on above: Order Comment: Speci men Type: BLOOD SPECIMEN Ordering Facility: [facility] Address: [address] [place] [address] Performed By: #### 2 4323-8, 3040-3, 30811-6, 49589-7, [id number] #### [facility] CLIA [id number] [address] O2 THERAPY RA=Room Air [facility] Comment on above: Order Comment: Speci men Type: BLOOD SPECIMEN Ordering Facility: [facility] Address: [address] [place] [address] Performed By: #### 2 4323-8, 3040-3, 59548-7, 99342-0, [id number] #### [facility] CLIA [id number] [address] [place] Oxygen (BldV) [Partial pressure] 35 mm[Hg] Normal 35-45 [facility] Comment on above: Order Comment: Speci men Type: BLOOD SPECIMEN Ordering Facility: [facility] Address: [address] [place] [address] Performed By: #### 2 4323-8, 3040-3, 74819-1, 97666-5, [id number] #### [facility] CLIA [id number] [address] Oxygen adjusted to patient's actual temperature (BldV) [Partial pressure] [facility] Comment on above: Order Comment: Speci men Type: BLOOD SPECIMEN Ordering Facility: [facility] Address: [address] [place], [place] [address] Performed By: #### 2 4323-8, 3040-3, 91716-0, 54682-5, [id number] #### [facility] CLIA [id number] [address] [place] Oxygen saturation in Venous blood 63 % Normal 60-85 [facility] Comment on above: Order Comment: Speci men Type: BLOOD SPECIMEN Ordering Facility: [facility] Address: [address] [place] [address] Performed By: #### 2 4323-8, 3040-3, 86710-3, 71568-9, [id number] #### [facility] CLIA [id number] [address] [place] [address] [place] Oxyhemoglobin (BldV) [Mass fraction] 62 % Normal 60-85 [facility] Comment on above: Order Comment: Speci men Type: BLOOD SPECIMEN Ordering Facility: [facility] Address: [address] [place] [address] Performed By: #### 2 4323-8, 3040-3, 33835-7, 55513-3, [id number] #### [facility] CLIA [id number] [address] [place] [address] [place] pH (BldV) 7.31 [pH] Low 7.32-7.42 [facility] Comment on above: Order Comment: Speci men Type: BLOOD SPECIMEN Ordering Facility: [facility] Address: [address] [place] [address] Performed By: #### 2 4323-8, 3040-3, 27366-2, 40492-9, [id number] #### [facility] CLIA [id number] [address] [place] pH adjusted to patient's actual temperature (BldV) Normal [facility] Comment on above: Order Comment: Speci men Type: BLOOD SPECIMEN Ordering Facility: [facility] Address: [address] [place] [address] Performed By: #### 2 4323-8, 3040-3, 39367-6, 68100-5, [id number] #### [facility] CLIA [id number] [address] [place] [address] [place] Potassium [Moles/Vol] 5.4 mmol/L High 3.5-5.0 [facility] Comment on above: Order Comment: Speci men Type: BLOOD SPECIMEN Ordering Facility: [facility] Address: [address] [place] [address] Performed By: #### 2 4323-8, 3040-3, 59247-6, 79857-4, [id number] #### [facility] CLIA [id number] [address] [place] [address] [place] Magnesium SerPl-mCncon 10-04 Magnesium [Mass/Vol] 1.5 mg/dL Low 1.7-2.3 [facility] Comment on above: Order Comment: Speci men Type: BLOOD SPECIMEN Ordering Facility: [facility] Address: [address] [place] [address] Performed By: #### 2 4323-8, 3040-3, 52448-6, 07090-5, [id number] #### [facility] CLIA [id number] [address] [place] [address] [place] Osmolality Uron 10-04-2024 Osmolality (U) [Osmolality] 377 mosm/kg Normal 50-1200 [facility] Comment on above: Order Comment: Speci men Type: BLOOD SPECIMEN Ordering Facility: [facility] Address: [address] [place] [address] Performed By: #### 2 4323-8, 3040-3, 13214-8, 15546-1, [id number] #### [facility] CLIA [id number] [address] [place] [address] [place] Phosphate SerPl-mCncon 10-04 Phosphate [Mass/Vol] 4.0 mg/dL Normal 2.7-4.8 [facility] Comment on above: Order Comment: Speci men Type: BLOOD SPECIMEN Ordering Facility: [facility] Address: [address] [place] [address] Performed By: #### 2 4323-8, 3040-3, 32715-0, 88547-6, [id number] #### [facility] CLIA [id number] [address] [place] [address] [place] Phosphate [Mass/Vol] 4.0 mg/dL Normal 2.7-4.8 [facility] Comment on above: Order Comment: Speci men Type: BLOOD SPECIMEN Ordering Facility: [facility] Address: [address] [place] [address] Performed By: #### 2 4323-8, 3040-3, 22434-1, 61275-3, [id number] #### [facility] CLIA [id number] [address] [place] [address] [place] Potassium ?Tm Ur-sCncon 09-20 Potassium Unsp time (U) [Moles/Vol] 26.9 mmol/L Normal 10.0-160.0 [facility] Comment on above: Order Comment: Speci men Type: BLOOD SPECIMEN Ordering Facility: [facility] Address: [address] [place] [address] Performed By: #### 2 4323-8, 3040-3, 54037-5, 33997-9, [id number] #### [facility] CLIA [id number] [address] Prot/Creat Uron 10-04-2024 Protein/Creatinine (U) [Mass ratio] 0.04 mg/mg Normal <0.15 [facility] Comment on above: Order Comment: Speci men Type: BLOOD SPECIMEN Ordering Facility: [facility] Address: [address] [place] [address] Result Comment: Adul t Proteinuria Categories: <0.15 mg/mg is considered normal to mildly increased 0.15 - 0.50 mg/mg is considered moderately increased >0.50 mg/mg is considered severely increased KDIGO. (2013). KDIGO 2012 Clinical Practice Guideline for the Evaluation and Management of Chronic Kidney Disease. Official Journal of the International Society of Nephrology, 3(1), 1-150. Performed By: #### 2 4323-8, 3040-3, 37328-9, 51549-6, [id number] #### [facility] CLIA [id number] [address] [place] Protein/Creatinine (U) [Mass ratio]on 10-04-2024 Protein (U) [Mass/Vol] 7 mg/dL Normal 0-20 [facility] Comment on above: Order Comment: Speci men Type: BLOOD SPECIMEN Ordering Facility: [facility] Address: [address] [place] [address] Performed By: #### 2 4323-8, 3040-3, 33383-0, 71778-2, [id number] #### [facility] CLIA [id number] [address] [place] [address] [place] Sodium ?Tm Ur-sCncon 025 Sodium Unsp time (U) [Moles/Vol] 68 mmol/L Normal 14-216 [facility] Comment on above: Order Comment: Speci men Type: BLOOD SPECIMEN Ordering Facility: [facility] Address: [address] [place] [address] Performed By: #### 2 4323-8, 3040-3, 66377-4, 26803-4, [id number] #### [facility] CLIA [id number] [address] [place] [address] [place] URINALYSIS, REFLEX MICROSCOP ICon 10-04-2024 Bilirubin Ql (U) Negative Normal Negative [facility] Comment on above: Order Comment: Speci men Type: BLOOD SPECIMEN Ordering Facility: [facility] Address: [address] [place] [address] Performed By: #### 2 4323-8, 3040-3, 39728-6, 79186-0, [id number] #### [facility] CLIA [id number] [address] [place] [address] [place] Clarity (Unsp spec) Clear Normal Clear [facility] Comment on above: Order Comment: Speci men Type: BLOOD SPECIMEN Ordering Facility: [facility] Address: [address] [place] [address] Performed By: #### 2 4323-8, 3040-3, 61656-1, 64053-1, [id number] #### [facility] CLIA [id number] [address] [place] [address] [place] Color (U) Yellow Normal Yellow [facility] Comment on above: Order Comment: Speci men Type: BLOOD SPECIMEN Ordering Facility: [facility] Address: [address] [place] [address] Performed By: #### 2 4323-8, 3040-3, 08039-8, 81802-1, [id number] #### [facility] CLIA [id number] [address] Glucose Test strip (U) [Mass/Vol] Negative Normal Negative [facility] Comment on above: Order Comment: Speci men Type: BLOOD SPECIMEN Ordering Facility: [facility] Address: [address] [place] [address] Performed By: #### 2 4323-8, 3040-3, 23079-7, 43204-4, [id number] #### [facility] CLIA [id number] [address] Hemoglobin Ql (U) Negative Normal Negative [facility] Comment on above: Order Comment: Speci men Type: BLOOD SPECIMEN Ordering Facility: [facility] Address: [address] [place] [address] Performed By: #### 2 4323-8, 3040-3, 76453-0, 11441-1, [id number] #### [facility] CLIA [id number] [address] Ketones Ql (U) Negative Normal Negative [facility] Comment on above: Order Comment: Speci men Type: BLOOD SPECIMEN [facility] [facility] Address: [address] [place] [address] Performed By: #### 2 4323-8, 3040-3, 88103-5, 64943-5, [id number] #### [facility] CLIA [id number] [address] Leukocyte esterase Test strip Ql (U) Negative Normal Negative [facility] Comment on above: Order Comment: Speci men Type: BLOOD SPECIMEN Ordering Facility: [facility] Address: [address] [place] [address] Performed By: #### 2 4323-8, 3040-3, 51294-8, 43686-7, [id number] #### [facility] CLIA [id number] [address] Nitrite Ql (U) Negative Normal Negative [facility] Comment on above: Order Comment: Speci men Type: BLOOD SPECIMEN Ordering Facility: [facility] Address: [address] [place] [address] Performed By: #### 2 4323-8, 3040-3, 11669-1, 24832-7, [id number] #### [facility] CLIA [id number] [address] [place] [address] [place] pH (U) 6.0 [pH] Normal 5.0-8.0 [facility] Comment on above: Order Comment: Speci men Type: BLOOD SPECIMEN Ordering Facility: [facility] Address: [address] [place] [address] Performed By: #### 2 4323-8, 3040-3, 68622-5, 93787-7, [id number] #### [facility] CLIA [id number] 1000 [place] [address] [place] Protein (U) [Mass/Vol] Negative Normal Negative [facility] Comment on above: Order Comment: Speci men Type: BLOOD SPECIMEN Ordering Facility: [facility] Address: [address] [place] [address] Performed By: #### 2 4323-8, 3040-3, 60425-2, 64254-7, [id number] #### [facility] CLIA [id number] [address] [place] [address] [place] Specific gravity (U) [Rel density] 1.020 Normal 1.005-1.030 [facility] Comment on above: Order Comment: Speci men Type: BLOOD SPECIMEN Ordering Facility: [facility] Address: [address] [place] [address] Performed By: #### 2 4323-8, 3040-3, 71949-3, 60471-9, [id number] #### [facility] CLIA [id number] [address] [place] [address] [place] Urobilinogen Ql (U) 0.2 EU/dL Normal 0.2-1.0 EU/dL [facility] Comment on above: Order Comment: Speci men Type: BLOOD SPECIMEN Ordering Facility: [facility] Address: [address] [place] [address] Performed By: #### 2 4323-8, 3040-3, 51276-7, 36650-7, [id number] #### [facility] CLIA [id number] [address] [place] [address] [place] US KIDNEY/BLADDERon 10-04-19 [...] IMPRESSION: Normal sonographic appearance of the kidneys. Cut Off Machine Helper: PSCB Transcribe Date/Time: Oct 04 2024 11:02A Dictated by : ZOLTAN SWAIN MD This examination was interpreted and the report reviewed and electronically signed by: ZOLTAN SWAIN MD on Oct 04 2024 11:07AM EST [id number] Normal [facility] Bas Metab 2000 Pnl SerPlon 0 10-03-2024 Anion gap [Moles/Vol] 10 mmol/L Normal 05-04 [facility] Comment on above: Order Comment: Speci men Type: BLOOD SPECIMEN Ordering Facility: [facility] Address: [address] [place] [address] [place] [address] Performed By: #### 2 4323-8, 3040-3, 36747-8, 37014-8, [id number] #### [facility] CLIA [id number] [address] [place] [address] [place] CO2 [Moles/Vol] 20 mmol/L Low [facility] Comment on above: Order Comment: Speci men Type: BLOOD SPECIMEN Ordering Facility: [facility] Address: [address] [place] [address] Performed By: #### 2 4323-8, 3040-3, 11332-1, 25348-3, [id number] #### [facility] CLIA [id number] [address] [place] [address] [place] Urea nitrogen [Mass/Vol] 25 mg/dL High 9-24 [facility] Comment on above: Order Comment: Speci men Type: BLOOD SPECIMEN Ordering Facility: [facility] Address: [address] [place] [address] Performed By: #### 2 4323-8, 3040-3, 13248-1, 90812-9, [id number] #### [facility] CLIA [id number] [address] [place] [address] [place] Basic metabolic 2000 panelon 10-03-2024 Anion gap [Moles/Vol] 11 mmol/L Normal 8-15 [facility] Comment on above: Order Comment: Speci men Type: BLOOD SPECIMEN Ordering Facility: [facility] Address: [address] [place] [address] Performed By: #### 2 4323-8, 3040-3, 34256-9, 94404-8, [id number] #### [facility] CLIA [id number] [address] [place] [address] [place] Calcium [Mass/Vol] 9.9 mg/dL Normal 8.5-10.2 [facility] Comment on above: Order Comment: Speci men Type: BLOOD SPECIMEN Ordering Facility: [facility] Address: [address] [place] [address] Performed By: #### 2 4323-8, 3040-3, 38634-9, 35429-0, [id number] #### [facility] CLIA [id number] [address] [place] [address] [place] Chloride [Moles/Vol] 103 mmol/L Normal 98-107 [facility] Comment on above: Order Comment: Speci men Type: BLOOD SPECIMEN Ordering Facility: [facility] Address: [address] [place], [place] [address] Performed By: #### 2 4323-8, 3040-3, 06762-2, 54698-1, [id number] #### [facility] CLIA [id number] [address] STATES [facility] CO2 [Moles/Vol] 22 mmol/L Normal 22-30 [facility] Comment on above: Order Comment: Speci men Type: BLOOD SPECIMEN Ordering Facility: [facility] Address: [address] [place] [address] Performed By: #### 2 4323-8, 3040-3, 27135-4, 66163-1, [id number] #### [facility] CLIA [id number] [address] [place] Creatinine [Mass/Vol] 1.45 mg/dL High 0.73-1.22 [facility] Comment on above: Order Comment: Speci men Type: BLOOD SPECIMEN Ordering Facility: [facility] Address: [address] [place] [address] Performed By: #### 2 4323-8, 3040-3, 98451-4, 89969-7, [id number] #### [facility] CLIA [id number] [address] [facility] Creatinine and Glomerular filtration rate.predicted panel (S/P/Bld) 51 mL/min/1.73m??? Low >=60 [facility] Comment on above: Order Comment: Speci men Type: BLOOD SPECIMEN Ordering Facility: [facility] Address: [address] [place] [address] Result Comment: Mary Kay mated Glomerular Filtration [...] GFR. Performed By: #### 2 4323-8, 3040-3, 74457-8, 27441-1, [id number] #### [facility] CLIA [id number] [address] [place] [address] [place] Glucose [Mass/Vol] 113 mg/dL High 74-99 [facility] Comment on above: Order Comment: Jose Cruz johnson Type: BLOOD SPECIMEN Ordering Facility: [facility] Address: [address] [place], [place] [address] Result Comment: [place] Diabetes Association (ADA) provides guidance for cutoff [...] Standards of Medical Care in Diabetes 2016, [place] Diabetes Association. Diabetes Care. 2016.39(Suppl 1). Performed By: #### 2 4323-8, 3040-3, 88732-1, 92957-4, [id number] #### [facility] CLIA [id number] [address] [place] [address] [place] Potassium [Moles/Vol] 6.4 mmol/L Critically high 3.7-5.1 [facility] Comment on above: Order Comment: Jose Cruz johnson Type: BLOOD SPECIMEN Ordering Facility: [facility] Address: [address] [place] [address] Performed By: #### 2 4323-8, 3040-3, 36055-5, 91066-5, [id number] #### [facility] CLIA [id number] 1000 [place] [id number] [place] Sodium [Moles/Vol] 136 mmol/L Normal 136-144 [facility] Comment on above: Order Comment: Jose Cruz johnson Type: BLOOD SPECIMEN Ordering Facility: [facility] Address: [address] [place], [place] [address] Performed By: #### 2 4323-8, 3040-3, 19703-7, 04588-6, [id number] #### [facility] CLIA [id number] [address] [place] [address] [place] Urea nitrogen [Mass/Vol] 28 mg/dL High 9-24 [facility] Comment on above: Order Comment: Speci men Type: BLOOD SPECIMEN Ordering Facility: [facility] Address: [address] [place] [address] Performed By: #### 2 4323-8, 3040-3, 60494-2, 91392-9, [id number] #### [facility] CLIA [id number] [address] [place] [address] [place] Calcium [Mass/Vol] 9.8 mg/dL Normal 8.5-10.2 [facility] Comment on above: Order Comment: Speci men Type: BLOOD SPECIMEN Ordering Facility: [facility] Address: [address] [place] [address] Performed By: #### 2 4323-8, 3040-3, 60748-0, 44185-2, [id number] #### [facility] CLIA [id number] [address] [place] [address] [place] Chloride [Moles/Vol] 104 mmol/L Normal 98-107 [facility] Comment on above: Order Comment: Speci men Type: BLOOD SPECIMEN Ordering Facility: [facility] Address: [address] [place] [address] Performed By: #### 2 4323-8, 3040-3, 64396-6, 71920-5, [id number] #### [facility] CLIA [id number] [address] [place] [address] [place] Creatinine [Mass/Vol] 1.28 mg/dL High 0.73-1.22 [facility] Comment on above: Order Comment: Speci men Type: BLOOD SPECIMEN Ordering Facility: [facility] Address: [address] [place] [address] Performed By: #### 2 4323-8, 3040-3, 85696-1, 95510-0, [id number] #### [facility] CLIA [id number] [address] [place] [address] [place] Creatinine and Glomerular filtration rate.predicted panel (S/P/Bld) 59 mL/min/1.73m??? Low >=60 [facility] Comment on above: Order Comment: Jose Cruz johnson Type: BLOOD SPECIMEN Ordering Facility: [facility] Address: [address] [place] [address] Result Comment: Mary Kay mated Glomerular Filtration [...] GFR. Performed By: #### 2 4323-8, 3040-3, 07078-5, 57074-7, [id number] #### [facility] CLIA [id number] [address] [place] [address] [place] Glucose [Mass/Vol] 141 mg/dL High 74-99 [facility] Comment on above: Order Comment: Jose Cruz johnson Type: BLOOD SPECIMEN Ordering Facility: [facility] Address: [address] [place] [address] Result Comment: The [place] Diabetes Association (ADA) provides guidance for cutoff [...] Standards of Medical Care in Diabetes 2016, [place] Diabetes Association. Diabetes Care. 2016.39(Suppl 1). Performed By: #### 2 4323-8, 3040-3, 44732-5, 83770-8, [id number] #### [facility] CLIA [id number] [address] [place] [address] [place] Potassium [Moles/Vol] 7.4 mmol/L Critically high 3.7-5.1 [facility] Comment on above: Order Comment: Speci men Type: BLOOD SPECIMEN Ordering Facility: [facility] Address: [address] [place] [address] Performed By: #### 2 4323-8, 3040-3, 05454-0, 84521-4, [id number] #### [facility] CLIA [id number] [address] [place] [address] [place] Sodium [Moles/Vol] 134 mmol/L Low 136-144 [facility] Comment on above: Order Comment: Speci men Type: BLOOD SPECIMEN Ordering Facility: [facility] Address: [address] [place] [address] Performed By: #### 2 4323-8, 3040-3, 29494-5, 00319-7, [id number] #### [facility] CLIA [id number] [address] [place] CBC W Auto Differential pane l (Bld)on 10-03-2024 Basophils (Bld) [#/Vol] 0.07 10*3/uL Normal <0.11 [facility] Comment on above: Order Comment: Speci men Type: BLOOD SPECIMEN Ordering Facility: [facility] Address: [address] [place] [address] Performed By: #### 2 4323-8, 3040-3, 83849-9, 78068-6, [id number] #### [facility] CLIA [id number] [address] [place] Basophils/100 WBC (Bld) 0.8 % Normal [facility] Comment on above: Order Comment: Speci men Type: BLOOD SPECIMEN Ordering Facility: [facility] Address: [address] [place] [address] Performed By: #### 2 4323-8, 3040-3, 61771-5, 83330-9, [id number] #### [facility] CLIA [id number] [address] Differential cell count method Nom (Bld) Auto Normal [facility] Comment on above: Order Comment: Speci men Type: BLOOD SPECIMEN Ordering Facility: [facility] Address: [address] [place] [address] Performed By: #### 2 4323-8, 3040-3, 14707-1, 16212-5, [id number] #### [facility] CLIA [id number] [address] [place] [address] [place] Eosinophils (Bld) [#/Vol] 0.13 10*3/uL Normal <0.46 [facility] Comment on above: Order Comment: Speci men Type: BLOOD SPECIMEN Ordering Facility: [facility] Address: [address] [place] [address] Performed By: #### 2 4323-8, 3040-3, 77845-2, 68184-1, [id number] #### [facility] CLIA [id number] [address] [place] Eosinophils/100 WBC (Bld) 1.5 % Normal [facility] Comment on above: Order Comment: Speci men Type: BLOOD SPECIMEN Ordering Facility: [facility] Address: [address] [place] [address] Performed By: #### 2 4323-8, 3040-3, 27230-7, 48862-3, [id number] #### [facility] CLIA [id number] [address] [place] Erythrocyte distribution width (RBC) [Ratio] 12.7 % Normal 11.5-15.0 [facility] Comment on above: Order Comment: Speci men Type: BLOOD SPECIMEN Ordering Facility: [facility] Address: [address] [place] [address] Performed By: #### 2 4323-8, 3040-3, 40725-3, 44448-2, [id number] #### [facility] CLIA [id number] [address] [place] Hematocrit (Bld) [Volume fraction] 33.9 % Low 39.0-51.0 [facility] Comment on above: Order Comment: Speci men Type: BLOOD SPECIMEN Ordering Facility: [facility] Address: [address] [place] [address] Performed By: #### 2 4323-8, 3040-3, 63770-2, 45914-9, [id number] #### [facility] CLIA [id number] [address] [place] [address] [place] Hemoglobin (Bld) [Mass/Vol] 11.3 g/dL Low 13.0-17.0 [facility] Comment on above: Order Comment: Speci men Type: BLOOD SPECIMEN Ordering Facility: [facility] Address: [address] [place] [address] Performed By: #### 2 4323-8, 3040-3, 10931-0, 92490-2, [id number] #### [facility] CLIA [id number] [address] [place] [address] [place] Immature granulocytes (Bld) [#/Vol] 0.03 10*3/uL Normal <0.10 [facility] Comment on above: Order Comment: Speci men Type: BLOOD SPECIMEN Ordering Facility: [facility] Address: [address] [place] [address] Performed By: #### 2 4323-8, 3040-3, 09057-1, , [id number] #### [facility] CLIA [id number] [address] [place] [address] [place] Immature granulocytes/100 WBC (Bld) 0.3 % Normal [facility] Comment on above: Order Comment: Speci men Type: BLOOD SPECIMEN Ordering Facility: [facility] Address: [address] [place] [address] Performed By: #### 2 4323-8, 3040-3, 26225-3, 88935-2, [id number] #### [facility] CLIA [id number] [address] [place] [address] [place] Lymphocytes (Bld) [#/Vol] 1.26 10*3/uL Normal 1.00-4.00 [facility] Comment on above: Order Comment: Speci men Type: BLOOD SPECIMEN Ordering Facility: [facility] Address: [address] [place] [address] Performed By: #### 2 4323-8, 3040-3, 98189-7, 15779-2, [id number] #### [facility] CLIA [id number] 1000 [place], [place] [address] [place] [address] STATES [facility] Lymphocytes/100 WBC (Bld) 14.4 % Normal [facility] Comment on above: Order Comment: Speci men Type: BLOOD SPECIMEN Ordering Facility: [facility] Address: [address] [place] [address] Performed By: #### 2 4323-8, 3040-3, 26900-2, 89044-9, [id number] #### [facility] CLIA [id number] [address] [place] MCH (RBC) [Entitic mass] 30.1 pg Normal 26.0-34.0 [facility] Comment on above: Order Comment: Speci men Type: BLOOD SPECIMEN Ordering Facility: [facility] Address: [address] [place] [address] Performed By: #### 2 4323-8, 3040-3, 48557-3, 47215-1, [id number] #### [facility] CLIA [id number] [address] [place] MCHC (RBC) [Mass/Vol] 33.3 g/dL Normal 30.5-36.0 [facility] Comment on above: Order Comment: Speci men Type: BLOOD SPECIMEN Ordering Facility: [facility] Address: [address] [place] [address] Performed By: #### 2 4323-8, 3040-3, 52569-4, 27813-0, [id number] #### [facility] CLIA [id number] [address] [place] MCV (RBC) [Entitic vol] 90.4 fL Normal 80.0-100.0 [facility] Comment on above: Order Comment: Speci men Type: BLOOD SPECIMEN Ordering Facility: [facility] Address: [address] [place] [address] Performed By: #### 2 4323-8, 3040-3, 91039-3, 18645-3, [id number] #### [facility] CLIA [id number] [address] [place] [address] [place] Monocytes (Bld) [#/Vol] 0.61 10*3/uL Normal <0.87 [facility] Comment on above: Order Comment: Speci men Type: BLOOD SPECIMEN Ordering Facility: [facility] Address: [address] [place] [address] Performed By: #### 2 4323-8, 3040-3, 85958-1, 95134-7, [id number] #### [facility] CLIA [id number] [address] [place] [address] [place] Monocytes/100 WBC (Bld) 7.0 % Normal [facility] Comment on above: Order Comment: Speci men Type: BLOOD SPECIMEN Ordering Facility: [facility] Address: [address] [place] [address] Performed By: #### 2 4323-8, 3040-3, 43087-0, 38700-8, [id number] #### [facility] CLIA [id number] [address] [place] [address] [place] Neutrophils (Bld) [#/Vol] 6.65 10*3/uL Normal 1.45-7.50 [facility] Comment on above: Order Comment: Speci men Type: BLOOD SPECIMEN Ordering Facility: [facility] Address: [address] [place] [address] Performed By: #### 2 4323-8, 3040-3, 67323-5, 51132-2, [id number] #### [facility] CLIA [id number] [address] [place] [address] [place] Neutrophils/100 WBC (Bld) 76.0 % Normal [facility] Comment on above: Order Comment: Speci men Type: BLOOD SPECIMEN Ordering Facility: [facility] Address: [address] [place] [address] Performed By: #### 2 4323-8, 3040-3, 66035-8, 03453-0, [id number] #### [facility] CLIA [id number] [address] [place] [address] [place] Nucleated RBC (Bld) [#/Vol] 10*3/uL Normal <0.01 [facility] Comment on above: Order Comment: Speci men Type: BLOOD SPECIMEN Ordering Facility: [facility] Address: [address] [place] [address] Performed By: #### 2 4323-8, 3040-3, 12072-5, 58494-2, [id number] #### [facility] CLIA [id number] [address] [place] [address] [place] Nucleated RBC/100 WBC (Bld) [Ratio] 0.0 /100 WBC Normal [facility] Comment on above: Order Comment: Speci men Type: BLOOD SPECIMEN Ordering Facility: [facility] Address: [address] [place] [address] Performed By: #### 2 4323-8, 3040-3, 47326-5, 63969-5, [id number] #### [facility] CLIA [id number] [address] [place] [address] [place] Platelet mean volume (Bld) [Entitic vol] 10.2 fL Normal 9.0-12.7 [facility] Comment on above: Order Comment: Speci men Type: BLOOD SPECIMEN Ordering Facility: [facility] Address: [address] [place] [address] Performed By: #### 2 4323-8, 3040-3, 76614-3, 84300-9, [id number] #### [facility] CLIA [id number] [address] [place] [address] [place] Platelets (Bld) [#/Vol] 224 10*3/uL Normal 150-400 [facility] Comment on above: Order Comment: Speci men Type: BLOOD SPECIMEN Ordering Facility: [facility] Address: [address] [place] [address] Performed By: #### 2 4323-8, 3040-3, 21435-5, 92140-7, [id number] #### [facility] CLIA [id number] [address] [place] [address] [place] RBC (Bld) [#/Vol] 3.75 10*6/uL Low 4.20-6.00 [facility] Comment on above: Order Comment: Speci men Type: BLOOD SPECIMEN Ordering Facility: [facility] Address: [address] [place], [place] [address] Performed By: #### 2 4323-8, 3040-3, 86082-6, 63223-5, [id number] #### [facility] CLIA [id number] [address] [place] [address] [place] WBC (Bld) [#/Vol] 8.75 10*3/uL Normal 3.70-11.00 [facility] Comment on above: Order Comment: Speci men Type: BLOOD SPECIMEN Ordering Facility: [facility] Address: [address] [place] [address] Performed By: #### 2 4323-8, 3040-3, 38633-1, 54198-4, [id number] #### [facility] CLIA [id number] [address] [place] [address] [place] CNPNon 10-03-2024 CNPN Normal [facility] metabolic 2000 panelon 10-03-2024 Albumin [Mass/Vol] 4.6 g/dL Normal 3.9-4.9 [facility] Comment on above: Order Comment: Speci men Type: BLOOD SPECIMEN Ordering Facility: [facility] Address: [address] [place] [address] Performed By: #### 2 4323-8, 3040-3, 64567-8, 33756-5, [id number] #### [facility] CLIA [id number] [address] [place] [address] [place] ALP [Catalytic activity/Vol] 57 U/L Normal 38-113 [facility] Comment on above: Order Comment: Speci men Type: BLOOD SPECIMEN Ordering Facility: [facility] Address: [address] [place] [address] Performed By: #### 2 4323-8, 3040-3, 91971-6, 92651-4, [id number] #### [facility] CLIA [id number] [address] [place] [address] [place] ALT [Catalytic activity/Vol] 12 U/L Normal 10-54 [facility] Comment on above: Order Comment: Speci men Type: BLOOD SPECIMEN Ordering Facility: [facility] Address: [address] [place] [address] Performed By: #### 2 4323-8, 3040-3, 98136-4, 84002-3, [id number] #### [facility] CLIA [id number] [address] [place] [address] [place] AST [Catalytic activity/Vol] 15 U/L Normal 14-40 [facility] Comment on above: Order Comment: Speci men Type: BLOOD SPECIMEN Ordering Facility: [facility] Address: [address] [place] [address] Performed By: #### 2 4323-8, 3040-3, 12826-3, 51255-0, [id number] #### [facility] CLIA [id number] [address] [place] [address] [place] Bilirubin [Mass/Vol] 0.4 mg/dL Normal 0.2-1.3 [facility] Comment on above: Order Comment: Speci men Type: BLOOD SPECIMEN Ordering Facility: [facility] Address: [address] [place] [address] Performed By: #### 2 4323-8, 3040-3, 11563-2, 20346-4, [id number] #### [facility] CLIA [id number] [address] [place] [address] [place] Calcium [Mass/Vol] 9.9 mg/dL Normal 8.5-10.2 [facility] Comment on above: Order Comment: Speci men Type: BLOOD SPECIMEN Ordering Facility: [facility] Address: [address] [place] [address] Performed By: #### 2 4323-8, 3040-3, 48376-4, 27853-7, [id number] #### [facility] CLIA [id number] [address] [place] [address] [place] Chloride [Moles/Vol] 103 mmol/L Normal 98-107 [facility] Comment on above: Order Comment: Speci men Type: BLOOD SPECIMEN Ordering Facility: [facility] Address: [address] [place] [address] Performed By: #### 2 4323-8, 3040-3, 96959-4, 41745-1, [id number] #### [facility] CLIA [id number] [address] [place] Creatinine [Mass/Vol] 1.18 mg/dL Normal 0.73-1.22 [facility] Comment on above: Order Comment: Jose Cruz johnson Type: BLOOD SPECIMEN Ordering Facility: [facility] Address: [address] [place] [address] Performed By: #### 2 4323-8, 3040-3, 31894-4, 86452-8, [id number] #### [facility] CLIA [id number] [address] Creatinine and Glomerular filtration rate.predicted panel (S/P/Bld) 66 mL/min/1.73m??? Normal >=60 [facility] Comment on above: Order Comment: Jose Cruz johnson Type: BLOOD SPECIMEN Ordering Facility: [facility] Address: [address] [place] [address] Result Comment: Mary Kay mated Glomerular Filtration [...] GFR. Performed By: #### 2 4323-8, 3040-3, 11303-1, 53340-3, [id number] #### [facility] CLIA [id number] [address] [place] Glucose [Mass/Vol] 182 mg/dL High 74-99 [facility] Comment on above: Order Comment: Jose Cruz johnson Type: BLOOD SPECIMEN Ordering Facility: [facility] Address: [address] [place] [address] Result Comment: The [place] Diabetes Association (ADA) provides guidance for cutoff [...] Standards of Medical Care in Diabetes 2016, [place] Diabetes Association. Diabetes Care. 2016.39(Suppl 1). Performed By: #### 2 4323-8, 3040-3, 09218-8, 62665-6, [id number] #### [facility] CLIA [id number] [address] [place] [address] [place] Potassium [Moles/Vol] 7.2 mmol/L Critically high 3.7-5.1 [facility] Comment on above: Order Comment: Jose Cruz johnson Type: BLOOD SPECIMEN Ordering Facility: [facility] Address: [address] [place] [address] Performed By: #### 2 4323-8, 3040-3, 82498-0, 47251-6, [id number] #### [facility] CLIA [id number] [address] [place] [address] [place] Protein [Mass/Vol] 7.7 g/dL Normal 6.3-8.0 [facility] Comment on above: Order Comment: Jose Cruz johnson Type: BLOOD SPECIMEN Ordering Facility: [facility] Address: [address] [place] [address] Performed By: #### 2 4323-8, 3040-3, 80386-1, 35733-7, [id number] #### [facility] CLIA [id number] [address] [place] [address] [place] Sodium [Moles/Vol] 133 mmol/L Low 136-144 [facility] Comment on above: Order Comment: Jose Cruz johnson Type: BLOOD SPECIMEN Ordering Facility: [facility] Address: [address] [place] [address] Performed By: #### 2 4323-8, 3040-3, 45505-9, 58766-2, [id number] #### [facility] CLIA [id number] [address] [place] [address] [place] ECG COMPLETEon 10-03-2024 ECG COMPLETE Ventricular Rate : 6 3 BPM Atrial Rate : 63 BPM P-R Interval : 174 ms QRS Duration : 108 ms Q-T Interval : 376 ms QTC Calculation(Bazett) : 384 ms Calculated P Gamaliel : 46 degrees Calculated R Gamaliel : 55 degrees Calculated T Gamaliel : 41 degrees NORMAL SINUS RHYTHM NORMAL ECG NO STEMI Confirmed by MARC DUNLAP DO ([id number]), health editor VINEET SOMMER ([id number]) on 10/10/2024 10:18:19 AM NAME : SHILO HATHAWAY PID : [id number] : 1950 Gender : Male Race : ORD : [id number] Procedure Date : Oct 03 2024 16:51:03 Edit Date : Oct 10 2024 10:18:21 Diagnosis: NORMAL SINUS RHYTHM NORMAL ECG NO STEMI Confirmed by MARC DUNLAP DO ([id number]), health editor VINEET SOMMER ([id number]) on 10/10/2024 10:18:19 AM Test Reason : Chest Pain Location : 1 : ER WR Overread By : MARC DUNLAP DO Edited By : VINEET SOMMER Referred By : , Acquired by : armando good [facility] ED NOTEon 10-03-2024 ED NOTE HNO ID: [id number] Author: FRITZ WARREN RN Service: ? Author Type: Registered Nurse Type: ED Notes Filed: 10/03/2024 18:27 Note Text: Report called to RN in ICU [facility] ED PROV NOTEon 10-03-2024 ED PROV NOTE HNO ID: [id number] Author: MARC DUNLAP DO Service: Emergency Medicine [...] a past medical history of CVA, previous AL, hyperlipidemia, hypertension, peripheral vascular disease as well as aortoiliac occlusive disease and he has a bilateral AKA, diabetes. 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 Nose: Nose normal. Mouth/Throat: Lips: Minier. Mouth: Mucous membranes are moist. Pharynx: Oropharynx is clear. Uvula midline. Eyes: General: Lids are normal. Vision grossly intact. Extraocular Movements: Extraocular movements intact. Conjunctiva/sclera: Conjunctivae normal. Pupils: Pupils are equal, round, and reactive to light. Neck: Trachea: Trachea and phonation normal. Meningeal: Brudzinski's sign and Kernig's sign (more content not included)... Normal [facility] HISTORY PHYSICALon HISTORY PHYSICAL HNO ID: [id number] Author: KENNETH CAMPOS APRN.PIANO MECHANIC Service: Critical Care Author Type: Nurse Practitioner Type: H&P Filed: 10/03/2024 18:52 Note Text: HISTORY AND PHYSICAL EXAMINATION * SERVICE DATE: 10/03/2024 SERVICE TIME: 628 PRIMARY CARE PHYSICIAN: Paulina Severino MD Subjective CHIEF COMPLAINT: high potassium HPI: 73 M admitted for hyperkalemia. Potassium is 7.2. Hx of CAD, CVA, HTN, HLD, AL, b/l AKA, DM2, PVD. Presented to the [...] occlusive disease (HCC) Atherosclerotic heart disease of [place] coronary artery without angina pectoris Carotid artery occlusion Carotid artery stenosis Cerebrovascular accident (CVA) (HCC) Coronary arteriosclerosis [place] 1998 Depressive disorder Disc disorder of lumbar [...] no distension. (more content not included)... Normal [facility] POTASSIUMOrdered By: Zia shetty on 10-03-2024 Interpretation and review of laboratory results Abnormal [facility] Potassium [Moles/Vol] 6.8 mmol/L Critically high 3.7 - 5.1 mmol/L [facility] POTASSIUMon 10-03-2024 Potassium [Moles/Vol] 6.8 mmol/L Critically high 3.7-5.1 [facility] Comment on above: Order Comment: Speci men Type: BLOOD SPECIMENOrdering Facility: [facility] Address: [address] [place] [address] Performed By: #### K 1 ####[facility] LABCLIA [id number] [place] [address] [place] STAPHYLOCOCCUS AUREUS AND MR SA SCREEN, PCR, NASALon 10-03-2024 S. aureus and MRSA panel JUAN F+probe (Nose) Methicillin-SUSCEPTIBLE Staphylococcus aureus Detected Abnormal Not Detected [facility] Comment on above: Order Comment: Speci men Type: SWAB Ordering Facility: [facility] Address: [address] [place] [address] Performed By: #### S APCR #### [facility] CLIA [id number] [address] [place], [place] [address] [place] [address] [place] CBC panel Auto (Bld)on 10-02 Erythrocyte distribution width (RBC) [Ratio] 12.9 % Normal 11.5-15.0 [facility] Comment on above: Order Comment: Speci men Type: BLOOD SPECIMENOrdering Facility: [facility] Address: [address] [place] [address] Performed By: #### 5 8410-2 ####[facility]ORYCLIA [id number] [address] [place] Hematocrit (Bld) [Volume fraction] 35.2 % Low 39.0-51.0 [facility] Comment on above: Order Comment: Speci men Type: BLOOD SPECIMENOrdering Facility: [facility] Address: [address] [place] [address] Performed By: #### 5 8410-2 ####[facility]ORYCLIA [id number] [place] [address] [place] Hemoglobin (Bld) [Mass/Vol] 11.2 g/dL Low 13.0-17.0 [facility] Comment on above: Order Comment: Speci men Type: BLOOD SPECIMENOrdering Facility: [facility] Address: [address] [place] [address] Performed By: #### 5 8410-2 ####[facility]ORYCLIA [id number] [address] MCH (RBC) [Entitic mass] 30.3 pg Normal 26.0-34.0 [facility] Comment on above: Order Comment: Speci men Type: BLOOD SPECIMENOrdering Facility: [facility] Address: [address] [place] [address] Performed By: #### 5 8410-2 ####[facility]ORYCLIA [id number] [address] MCHC (RBC) [Mass/Vol] 31.8 g/dL Normal 30.5-36.0 [facility] Comment on above: Order Comment: Speci men Type: BLOOD SPECIMENOrdering Facility: [facility] Address: [address] [place] [address] Performed By: #### 5 8410-2 ####[facility]ORYCLIA [id number] [address] MCV (RBC) [Entitic vol] 95.1 fL Normal 80.0-100.0 [facility] Comment on above: Order Comment: Speci men Type: BLOOD SPECIMENOrdering Facility: [facility] Address: [address] [place] [address] Performed By: #### 5 8410-2 ####[facility]ORYCLIA [id number] [address] Nucleated RBC (Bld) [#/Vol] 10*3/uL Normal <0.01 [facility] Comment on above: Order Comment: Speci men Type: BLOOD SPECIMENOrdering Facility: [facility] Address: [address] [place] [address] Performed By: #### 5 8410-2 ####[facility]ORYCLIA [id number] [place] [address] [place] Platelet mean volume (Bld) [Entitic vol] 10.9 fL Normal 9.0-12.7 [facility] Comment on above: Order Comment: Speci men Type: BLOOD SPECIMENOrdering Facility: [facility] Address: [address] [place] [address] Performed By: #### 5 8410-2 ####[facility]ORYCLIA [id number] [place] [address] [place] Platelets (Bld) [#/Vol] 204 10*3/uL Normal 150-400 [facility] Comment on above: Order Comment: Speci men Type: BLOOD SPECIMENOrdering Facility: [facility] Address: [address] [place] [address] Performed By: #### 5 8410-2 ####[facility]ORYCLIA [id number] [address] [place] RBC (Bld) [#/Vol] 3.70 10*6/uL Low 4.20-6.00 [facility] Comment on above: Order Comment: Speci men Type: BLOOD SPECIMENOrdering Facility: [facility] Address: [address] [place] [address] Performed By: #### 5 8410-2 ####[facility]ORYCLIA [id number] [address] [place] WBC (Bld) [#/Vol] 7.70 10*3/uL Normal 3.70-11.00 [facility] Comment on above: Order Comment: Speci men Type: BLOOD SPECIMENOrdering Facility: [facility] Address: [address] [place] [address] Performed By: #### 5 8410-2 ####[facility]ORYCLIA [id number] [address] [place] Comprehensive metabolic 2000 panelon 10-02-2024 Albumin [Mass/Vol] 4.6 g/dL Normal 3.9-4.9 [facility] Comment on above: Order Comment: Speci men Type: BLOOD SPECIMENOrdering Facility: [facility] Address: [address] [place] [address] Performed By: #### 2 4323-8 ####[facility]ATORYCLIA [id number] [address] [place] ALP [Catalytic activity/Vol] 58 U/L Normal 38-113 [facility] Comment on above: Order Comment: Speci men Type: BLOOD SPECIMENOrdering Facility: [facility] Address: [address] [place] [address] Performed By: #### 2 4323-8 ####[facility]ATORYCLIA [id number] [place] [address] [place] ALT With P-5'-P [Catalytic activity/Vol] 12 U/L Normal 10-54 [facility] Comment on above: Order Comment: Speci men Type: BLOOD SPECIMENOrdering Facility: [facility] Address: [address] [place] [address] Performed By: #### 2 4323-8 ####[facility]ORYCLIA [id number] [address] [place] Anion gap [Moles/Vol] 12 mmol/L Normal 8-15 [facility] Comment on above: Order Comment: Speci men Type: BLOOD SPECIMENOrdering Facility: [facility] Address: [address] [place] [address] Performed By: #### 2 4323-8 ####[facility]ORYCLIA [id number] [address] [place] AST With P-5'-P [Catalytic activity/Vol] 13 U/L Low 14-40 [facility] Comment on above: Order Comment: Speci men Type: BLOOD SPECIMENOrdering Facility: [facility] Address: [address] [place] [address] Performed By: #### 2 4323-8 ####[facility]ORYCLIA [id number] [address] [place] Bilirubin [Mass/Vol] 0.3 mg/dL Normal 0.2-1.3 [facility] Comment on above: Order Comment: Speci men Type: BLOOD SPECIMENOrdering Facility: [facility] Address: [address] [place] [address] Performed By: #### 2 4323-8 ####[facility] LABORATORYCLIA [id number] [place] [address] [place] Calcium [Mass/Vol] 10.0 mg/dL Normal 8.5-10.2 [facility] Comment on above: Order Comment: Speci men Type: BLOOD SPECIMENOrdering Facility: [facility] Address: [address] [place] [address] Performed By: #### 2 4323-8 ####[facility]ATORYCLIA [id number] [place] [address] [place] Chloride [Moles/Vol] 103 mmol/L Normal 98-107 [facility] Comment on above: Order Comment: Speci men Type: BLOOD SPECIMENOrdering Facility: [facility] Address: [address] [place] [address] Performed By: #### 2 4323-8 ####[facility]ORYCLIA [id number] [place] [address] [place] CO2 [Moles/Vol] 24 mmol/L Normal 22-30 [facility] Comment on above: Order Comment: Speci men Type: BLOOD SPECIMENOrdering Facility: [facility] Address: [address] [place] [address] Performed By: #### 2 4323-8 ####[facility]ATORYCLIA [id number] [place] [address] [place] Creatinine [Mass/Vol] 1.18 mg/dL Normal 0.73-1.22 [facility] Comment on above: Order Comment: Speci men Type: BLOOD SPECIMENOrdering Facility: [facility] Address: [address] [place] [address] Performed By: #### 2 4323-8 ####[facility] LABORATORYCLIA [id number] [place] [address] [place] Creatinine and Glomerular filtration rate.predicted panel (S/P/Bld) 66 mL/min/1.73m??? Normal >=60 [facility] Comment on above: Order Comment: Jose Cruz johnson Type: BLOOD SPECIMENOrdering Facility: [facility] Address: [address] [place] [address] Result Comment: Mary Kay mated Glomerular Filtration [...] actual GFR. Performed By: #### 2 4323-8 ####[facility]ATORYCLIA [id number] [place] [address] [place] Glucose [Mass/Vol] 85 mg/dL Normal 74-99 [facility] Comment on above: Order Comment: Jose Cruz johnson Type: BLOOD SPECIMENOrdering Facility: [facility] Address: [address] [place] [address] Result Comment: The [place] Diabetes Association (ADA) provides guidance for cutoff [...] Standards of Medical Care in Diabetes 2016, [place] Diabetes Association. Diabetes Care. 2016.39(Suppl 1). Performed By: #### 2 4323-8 ####[facility]ATORYCLIA [id number] [place] [address] [place] Potassium [Moles/Vol] 6.1 mmol/L Critically high 3.7-5.1 [facility] Comment on above: Order Comment: Jose Cruz johnson Type: BLOOD SPECIMENOrdering Facility: [facility] Address: [address] [place] [address] Performed By: #### 2 4323-8 ####[facility]ORYCLIA [id number] [place] [address] [place] Protein [Mass/Vol] 7.6 g/dL Normal 6.3-8.0 [facility] Comment on above: Order Comment: Speci men Type: BLOOD SPECIMENOrdering Facility: [facility] Address: [address] [place] [address] Performed By: #### 2 4323-8 ####[facility]ATORYCLIA [id number] [place] [address] [place] Sodium [Moles/Vol] 139 mmol/L Normal 136-144 [facility] Comment on above: Order Comment: Speci men Type: BLOOD SPECIMENOrdering Facility: [facility] Address: [address] [place] [address] Performed By: #### 2 4323-8 ####[facility]ATORYCLIA [id number] [address] [place] Urea nitrogen [Mass/Vol] 23 mg/dL Normal 9-24 [facility] Comment on above: Order Comment: Speci men Type: BLOOD SPECIMENOrdering Facility: [facility] Address: [address] [place] [address] Performed By: #### 2 4323-8 ####[facility]ATORYCLIA [id number] [address] [place] HbA1c (Bld)on 10-02-2024 Average glucose Estimated from glycated hemoglobin (Bld) [Mass/Vol] 174 mg/dL Normal [facility] Comment on above: Order Comment: Speci men Type: BLOOD SPECIMENOrdering Facility: [facility] Address: [address] [place] [address] Result Comment: eAG: (Estimated average glucose) is a calculated value from HgbA1c and is practice representative of the average blood glucose level in the last 2-3 month period. Performed By: #### 5 5454-3 ####[facility] LABCLIA [id number] [address] [id number] [address] [place] HbA1c (Bld) [Mass fraction] 7.7 % High 4.3-5.6 [facility] Comment on above: Order Comment: Speci men Type: BLOOD SPECIMENOrdering Facility: [facility] Address: [address] [place] [address] Result Comment: [place] Diabetes Association guidelines indicate that patients with HgbA1c in the range 5.7-6.4% are at increased risk for development of diabetes, and intervention by lifestyle modification may be beneficial. HgbA1c greater or equal to 6.5% is considered diagnostic of diabetes. Performed By: #### 5 5454-3 ####[facility] LABCLIA [id number] [address] [place] CNPNon 09-07-2024 CNPN Normal [facility] CNPNon 08-31-2024 CNPN Normal [facility] CNOVon 08-22-2024 CNOV Normal [facility] CNPNon 08-22-2024 CNPN Normal [facility] CNPNon 08-14-2024 CNPN Normal [facility] CNPNon 08-10-2024 CNPN Normal [facility] CNPNon 07-28-2024 CNPN Normal [facility] CNOVon 07-25-2024 CNOV Normal [facility] CNPNon 07-19-2024 CNPN Normal [facility] ECHOon 07-19-2024 CONCLUSIONS: - Exam [...] [facility] Echocardiography Report: Transthoracic Echo [facility] Date of service: 07/19/2024 12:01:53 PM BEHAVIORAL CARE Ordering physician: EDUIN COLEMAN Indication: CHF Technologist: Opal Blank [facility] Interpreting physician: Jairo De Los Santos [...] trivial pericardial effusion. [facility] CNPNon 07-14-2024 CNPN Normal [facility] CNOVon 07-12-2024 CNOV Normal [facility] CNOVon 07-11-2024 CNOV Normal [facility] CNPNon 07-11-2024 CNPN Normal [facility] CNPNon 07-04-2024 CNPN Normal [facility] CNPNon 06-30-2024 CNPN Normal [facility] CNOVon 06-27-2024 CNOV Normal [facility] HEMOGLOBIN A1C (POC)on 06-27 HbA1c (Bld) [Mass fraction] 10.2 % Abnormal 4.3 - 5.6 % [facility] Comment on above: Location:[facility] Office, [address] [place] [address], [facility] Point of care (POC) Hemoglobin A1c (HGBA1C) [...] specific diabetes management situations: The POC device maintainability engineer provides a normal range of 4.2% to 6.5% for the HGBA1C POC test. However, the [place] Diabetes Association guidelines indicate that patients with [...] Interpretation and review of laboratory results Abnormal [facility] CNPNon 06-07-2024 CNPN Normal [facility] CNPTOUTREACHon 06-07-2024 CNPTOUTREACH Normal [facility] CNOVon 06-06-2024 CNOV Normal [facility] CNPNon 06-06-2024 CNPN Normal [facility] US CAROTID BILon 05-24-2024 US CAROTID ROMI Normal [facility] CNPNon 04-19-2024 CNPN Normal [facility] CNPTOUTREACHon 04-12-2024 CNPTOUTREACH Normal [facility] CNPNon 04-11-2024 CNPN Normal [facility] HEMOGLOBIN A1C (POC)on 03-27 HbA1c (Bld) [Mass fraction] 8.4 % Abnormal 4.3 - 5.6 % [facility] Comment on above: [facility] [address] [place] [address], [facility] Point of care (POC) Hemoglobin A1c (HGBA1C) [...] specific diabetes management situations: The POC device maintainability engineer provides a normal range of 4.2% to 6.5% for the HGBA1C POC test. However, the [place] Diabetes Association guidelines indicate that patients with [...] Interpretation and review of laboratory results Abnormal [facility] HbA1c (Bld)on 07-16-2023 Average glucose Estimated from glycated hemoglobin (Bld) [Mass/Vol] 235 mg/dL [facility] HbA1c (Bld) [Mass fraction] 9.8 % High 4.3 - 5.6 % [facility] Basic metabolic 2000 panelon 05-26-2023 Anion gap [Moles/Vol] 13 mmol/L 9 - 18 mmol/L [facility] Calcium [Mass/Vol] 9.2 mg/dL 8.5 - 10. 2 mg/dL [facility] Chloride [Moles/Vol] 101 mmol/L 97 - 105 mmol/L [facility] CO2 [Moles/Vol] 23 mmol/L 22 - 30 mmol/L [facility] Creatinine [Mass/Vol] 1.01 mg/dL 0.73 - 1.22 mg/dL [facility] Estimated Glomerular Filtration Rate 80 mL/min/1.73m >=60 mL/min/1.73m [facility] Glucose [Mass/Vol] 223 mg/dL High 74 - 99 mg/dL [facility] Potassium [Moles/Vol] 4.7 mmol/L 3.7 - 5.1 mmol/L [facility] Sodium [Moles/Vol] 137 mmol/L 136 - 144 mmol/L [facility] Urea nitrogen [Mass/Vol] 15 mg/dL 9 - 24 mg/dL [facility] COLONOSCOPY DIAGNOSTICon [facility] GLUCOSE, BLOOD (POC)on 05-26 Glucose [Mass/Vol] 201 mg/dL Abnormal 74 - 99 mg/dL [facility] Glucose [Mass/Vol] 224 mg/dL Abnormal 74 - 99 mg/dL [facility] HEMOGLOBIN A1C (POC)on 04-22 HbA1c (Bld) [Mass fraction] 12.0 % Abnormal 4.2 - 5.6 % [facility] NM CARDIAC SPECT SINGLEon [facility] BMP - EXTERNALon 05-26-2022 Anion gap [Moles/Vol] 10 mmol/L [facility] Calcium [Mass/Vol] 9.1 mg/dL 8.8 - 10. 5 MG/DL [facility] Chloride [Moles/Vol] 103 mmol/L 98 - 107 MEQ/L [facility] Creatinine [Mass/Vol] 0.69 mg/dL 0.6 - 1.3 MG/DL [facility] GFR AFR AMER 145 mL/MIN [facility] GFR/1.73 sq M.predicted among non-blacks MDRD (S/P/Bld) [Vol rate/Area] 120 mL/min/{1.73_m2} [facility] Glucose [Mass/Vol] 159 mg/dL Abnormal 74 - 106 MG/DL [facility] HCO3 (Bld) [Moles/Vol] 23.0 mmol/L [facility] Potassium [Moles/Vol] 4.7 mmol/L 3.5 - 5.1 MEQ/L [facility] Sodium [Moles/Vol] 136 mmol/L 136 - 145 MEQ/L [facility] Urea nitrogen [Mass/Vol] 14 mg/dL 6 - 20 mg/dL [facility] CBC panel Auto (Bld)on 05-26 Erythrocyte distribution width (RBC) [Ratio] 13.7 % 11.7 - 15.0 % [facility] Hematocrit (Bld) [Volume fraction] 32.1 % Abnormal 33 - 42 % [facility] Hemoglobin (Bld) [Mass/Vol] 10 g/dL Abnormal 12 - 16 g/dL [facility] MCH 28.2 pG 27 - 34 pG [facility] MCHC 31.2 % Abnormal 32 - 36 % [facility] MCV (RBC) [Entitic vol] 90.7 fL 80 - 100 fL [facility] MPV 10.7 % 7.3 - 11.1 % [facility] Platelets (Bld) [#/Vol] 282 10*3/uL 150 - 400 k/uL [facility] RBC (Bld) [#/Vol] 3.54 10*6/uL Abnormal 4.5 - 6.0 M/uL [facility] RDW-SD 46.1 Abnormal 35.1 - 43.9 [facility] WBC (Bld) [#/Vol] 8.0 10*3/uL 4.0 - 11.0 K/uL [facility] No Panel Informationon 04-23 [facility] MRI LUMBAR SPINE WO IVCONon 04-15-2022 [facility] HEMOGLOBIN A1C (POC)on 12-30 HbA1c (Bld) [Mass fraction] 9.8 % Abnormal 4.2 - 5.6 % [place] ART PVR LOWER W/ EXERCISE on 10-23-2020 US ART PVR LOWER W/ EXERCISE Final Report DATE OF EXAM: Oct 23 2020 12:00AM A2U 1108 - US ART PVR LOWER W/ EXERCISE / PROCEDURE REASON: s/p bypass Physician Interpretation Non-Invasive Vascular Laboratory [facility] Lower Extremity Arterial Physiology Study [...] Interpreting physician: Anne Villalpando MD Final RP Cut Off Machine Helper: SKY Transcribe Date/Time: Oct 23 2020 9:56A Dictated by : ANNE VILLALPANDO MD This examination was interpreted and the report reviewed and electronically signed by: ANNE VILLALPANDO MD on Oct 23 2020 6:09PM EST Normal [facility] US CAROTID BILon 09-05-2020 US CAROTID ROMI Final Report DATE OF EXAM: Sep 05 2020 1:20PM U 1077 - US CAROTID ROMI / PROCEDURE REASON: Bilateral carotid artery stenosis Physician Interpretation CAROTID ULTRASOUND 09/05/2020 1:20 PM HISTORY: Bilateral carotid artery stenosis , evaluate for carotid stenosis. COMPARISON: 08/25/2019 TECHNIQUE: Carotid ultrasound performed using grayscale, spectral Doppler and color Doppler. RESULT: Syft-ve-rdvrcntm bilateral plaque formation. Right side: Peak ICA [...] internal carotid arteries, bilaterally. NASCET criteria used. Cut Off Machine Helper: PSCB Transcribe Date/Time: Sep 05 2020 2:19P Dictated by : JULIA CONTI MD This examination was interpreted and the report reviewed and electronically signed by: JULIA CONTI MD on Sep 05 2020 2:21PM EST Normal [facility] Vital Signs Date Time Vital Sign Value Performing Clinician Facility 04-23-2025 03:48-0400 SaO2% (BldA) [Mass fraction] 86 % [facility] Comment on above: Order Comment: Specimen Type: ARTERIAL B LOOD SPECIMENOrdering Facility: [facility] Address: [address] [place] [address] Performed By: #### A LLBG ####[facility] [id number] [place], [place] [id number] [place] [address] [place] 04-12-2025 06:24-0400 SaO2% (BldA) [Mass fraction] 98 % [facility] Comment on above: Order Comment: Specimen Type: ARTERIAL B LOOD SPECIMENOrdering Facility: [facility] Address: [address] [place] [address] Performed By: #### A LLBG ####[facility] [id number] [place] [address] [facility] 04-11-2025 07:03-0400 SaO2% (BldA) [Mass fraction] 98 % [facility] Comment on above: Order Comment: Specimen Type: ARTERIAL B LOOD SPECIMENOrdering Facility: [facility] Address: [address] [place] [address] Performed By: #### A LLBG ####[facility]CL[facility] [id number] [place] [address] [facility] [place] 04-10-2025 05:09-0400 SaO2% (BldA) [Mass fraction] 99 % [facility] Comment on above: Order Comment: Specimen Type: ARTERIAL B LOOD SPECIMENOrdering Facility: [facility] Address: [address] [place] [address] Performed By: #### A LLBG ####[facility]ORY[facility]IA [id number] [place] [address] [facility] 04-09-2025 22:02-0400 SaO2% (BldA) [Mass fraction] 88 % [facility] Comment on above: Order Comment: Specimen Type: ARTERIAL B LOOD SPECIMENOrdering Facility: [facility] Address: [address] [place] [address] Performed By: #### A LLBG ####[facility]IA [id number] [place] [address] [facility] 04-08-2025 00:26-0400 SaO2% (BldA) [Mass fraction] 90 % [facility] Comment on above: Order Comment: Specimen Type: ARTERIAL B LOOD SPECIMENOrdering Facility: [facility] Address: [address] [place] [address] Performed By: #### A LLBG ####[facility]ORYCLIA [id number] [place] [address] [facility] 04-06-2025 18:31-0400 SaO2% (BldA) [Mass fraction] 91 % [facility] Comment on above: Order Comment: Specimen Type: ARTERIAL B LOOD SPECIMENOrdering Facility: [facility] Address: [address] [place], [place] [id number] Performed By: #### A LLBG ####[facility]ORYCLIA [id number] [place] [address] [facility] 04-06-2025 10:36-0400 SaO2% (BldA) [Mass fraction] 86 % [facility] Comment on above: Order Comment: Specimen Type: ARTERIAL B LOOD SPECIMENOrdering Facility: [facility] Address: [address] [place] [address] Performed By: #### A LLBG ####[facility]ORYCLIA [id number] [place] [address] [facility] 04-06-2025 02:03-0400 SaO2% (BldA) [Mass fraction] 87 % [facility] Comment on above: Order Comment: Specimen Type: ARTERIAL B LOOD SPECIMENOrdering Facility: [facility] Address: [address] [place] [address] Performed By: #### A LLBG ####[facility]ORYCLIA [id number] [place] [address] [facility] 03-29-2025 10:16-0400 Body height 114.3 cm Pst 1 [facility] 03-29-2025 10:16-0400 Body mass index (BMI) [Ratio] 54.51 kg/m2 Pst 1 [facility] 03-29-2025 10:16-0400 Body temperature 98.2 [degF] Pst 1 [facility] 03-29-2025 10:16-0400 Body weight 71.22 kg Pst 1 [facility] Comment on above: 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 Se lf reported weight 03-29-2025 10:16-0400 Diastolic blood pressure 68 mm[Hg] Pst 1 [facility] 03-29-2025 10:16-0400 Heart rate 84 /min Pst 1 [facility] 07-10-2025 10:16-0400 Respiratory rate 16 /min Pst 1 [facility] 03-29-2025 10:16-0400 SaO2% (BldA) [Mass fraction] 96 % Pst 1 [facility] 03-29-2025 10:16-0400 Systolic blood pressure 146 mm[Hg] Pst 1 [facility] 03-20-2025 10:46-0400 Body height 114.3 cm Thierry Rush MD Work Phone: [facility] 03-20-2025 10:46-0400 Body mass index (BMI) [Ratio] 54.51 kg/m2 Thierry Rush MD Work Phone: [facility] 03-20-2025 10:46-0400 Body weight 71.22 kg Thierry Rush MD Work Phone: [facility] 03-05-2025 13:26-0400 Diastolic blood pressure 69 mm[Hg] Lyubov Hernandez APRN.[employer] Work Phone: [facility] 03-05-2025 13:26-0400 Heart rate 78 /min Lyubov Hernandez APRN.[employer] Work Phone: [facility] 03-05-2025 13:26-0400 Systolic blood pressure 134 mm[Hg] 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: [facility] 02-28-2025 15:27-0400 Diastolic blood pressure 62 mm[Hg] Eduin Coleman APRN.[employer] Work Phone: [facility] 02-28-2025 15:27-0400 Systolic blood pressure 142 mm[Hg] Eduin krueger APRN.[employer] Work Phone: [facility] 02-28-2025 15:07-0400 Body mass index (BMI) [Ratio] 54.51 kg/m2 Eduin Coleman APRN.[employer]O MECHANIC Work Phone: [facility] 02-28-2025 15:07-0400 Body weight 71.22 kg Eduin Coleman APRN.[employer]O MECHANIC Work Phone: [facility] 02-28-2025 15:07-0400 Heart rate 77 /min Eduin Coleman APRN.CNP Work Phone: [facility] 02-28-2025 15:07-0400 SaO2% (BldA) [Mass fraction] 95 % Eduin Coleman APRN.[employer] Work Phone: [facility] 01-29-2025 10:30-0400 Diastolic blood pressure 60 mm[Hg] Paulina Severino MD Work Phone: [facility] 01-29-2025 10:30-0400 Systolic blood pressure 158 mm[Hg] Paulina Quintanilla Work Phone: [facility] 01-29-2025 10:08-0400 Heart rate 75 /min Paulina Severino MD Work Phone: [facility] 11-23-2024 13:36-0500 Body height 163.8 cm Davin Moran MD Work Phone: [facility] 11-23-2024 13:36-0500 Body mass index (BMI) [Ratio] 26.7 kg/m2 Davin Moran MD Work Phone: [facility] 11-23-2024 13:36-0500 Body weight 71.67 kg Davin Moran MD Work Phone: [facility] 11-23-2024 13:36-0500 Diastolic blood pressure 63 mm[Hg] Davin Moran MD Work Phone: [facility] 11-23-2024 13:36-0500 Heart rate 71 /min Davin Moran MD Work Phone: [facility] 11-23-2024 13:36-0500 Respiratory rate 16 /min Davin Moran MD Work Phone: [facility] 11-23-2024 13:36-0500 SaO2% (BldA) [Mass fraction] 94 % Davin Moran MD Work Phone: [facility] 11-23-2024 13:36-0500 Systolic blood pressure 149 mm[Hg] Davin Moran MD Work Phone: [facility] 11-08-2024 15:10-0500 Diastolic blood pressure 54 mm[Hg] Lyubov Mary 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[employer] Work Phone: [facility] Comment on above: manual 11-08-2024 15:10-0500 Systolic blood pressure 144 mm[Hg] Lyubov Mary 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[employer] Work Phone: [facility] Comment on above: manual 11-08-2024 14:35-0500 Heart rate 110 /min Lyubov Mary 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[employer] Work Phone: [facility] 11-08-2024 14:35-0500 SaO2% (BldA) [Mass fraction] 95 % Lyubov Mary 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[employer]O MECHANIC Work Phone: [facility] 10-09-2024 13:39-0500 Diastolic blood pressure 58 mm[Hg] Lyubov Mary 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[employer] Work Phone: [facility] Comment on above: manual 10-09-2024 13:39-0500 Systolic blood pressure 148 mm[Hg] Lyubov Mary 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[employer]O ME[employer]ANIC Work Phone: [facility] Comment on above: manual 10-09-2024 13:16-0500 Body height 114.3 cm Lyubov Mary 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[employer]IC Work Phone: [facility] 10-09-2024 13:16-0500 Body mass index (BMI) [Ratio] 55.55 kg/m2 Lyubov Addisonmel 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[employer] Work Phone: [facility] 10-09-2024 13:16-0500 Body temperature 96.8 [degF] Lyubov Mary 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[employer] ME[employer]IC Work Phone: [facility] 10-09-2024 13:16-0500 Body weight 72.58 kg Lyubov Mary 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[employer]O [employer]IC Work Phone: [facility] 10-09-2024 13:16-0500 Heart rate 59 /min Lyubov Mary 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[employer]O MECHANIC Work Phone: [facility] 10-09-2024 13:16-0500 Respiratory rate 16 /min Lyubov Mary 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[employer]O MECHANIC Work Phone: [facility] 10-09-2024 13:16-0500 SaO2% (BldA) [Mass fraction] 95 % Lyubov Mary 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[employer]O MECHANIC Work Phone: [facility] 08-22-2024 10:54-0500 Diastolic blood pressure 63 mm[Hg] Lyubov Mary 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[employer] MECHANIC Work Phone: [facility] 08-22-2024 10:54-0500 Heart rate 63 /min Lyubov Mary 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[employer]ANIC Work Phone: [facility] 08-22-2024 10:54-0500 SaO2% (BldA) [Mass fraction] 97 % Lyubov Mary 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PI[employer]O MECHANIC Work Phone: [facility] 08-22-2024 10:54-0500 Systolic blood pressure 146 mm[Hg] Lyubov Mary 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PIANO MECHANIC Work Phone: [facility] 07-25-2024 13:39-0500 Diastolic blood pressure 67 mm[Hg] Lyubov Mary 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[employer]O MECHANIC Work Phone: [facility] 07-25-2024 13:39-0500 Heart rate 72 /min Lyubov Mary 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[employer]O MECHANIC Work Phone: [facility] 07-25-2024 13:39-0500 SaO2% (BldA) [Mass fraction] 96 % Lyubov Mary 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PIANO MECHANIC Work Phone: [facility] 07-25-2024 13:39-0500 Systolic blood pressure 130 mm[Hg] Lyubov Mary 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[employer] MECHANIC Work Phone: [facility] 07-12-2024 13:49-0400 Body mass index (BMI) [Ratio] 28.32 kg/m2 Eduin Coleman APRN.[employer]O MECHANIC Work Phone: [facility] 07-12-2024 13:49-0400 Body weight 74.84 kg Eduin Coleman APRN.PIANO MECHANIC Work Phone: [facility] Comment on above: in wheelchair 07-12-2024 13:49-0400 Diastolic blood pressure 69 mm[Hg] Eduin Coleman 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[employer]O MECHANIC Work Phone: [facility] 07-12-2024 13:49-0400 Heart rate 62 /min Eduin Coleman 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[employer] MECHANIC Work Phone: [facility] 07-12-2024 13:49-0400 Respiratory rate 16 /min Eduin Coleman 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[employer] MECHANIC Work Phone: [facility] 07-12-2024 13:49-0400 SaO2% (BldA) [Mass fraction] 96 % Eduin Coleman 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PIANO MECHANIC Work Phone: [facility] 07-12-2024 13:49-0400 Systolic blood pressure 125 mm[Hg] Eduin krueger 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[employer] MECHANIC Work Phone: [facility] 06-27-2024 13:43-0400 Diastolic blood pressure 65 mm[Hg] 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: [facility] 06-27-2024 13:43-0400 Heart rate 68 /min 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: [facility] 06-27-2024 13:43-0400 Systolic blood pressure 124 mm[Hg] 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: [facility] 06-06-2024 13:03-0400 Diastolic blood pressure 60 mm[Hg] Elizabeth Ball 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[employer] Work Phone: [facility] 06-06-2024 13:03-0400 Heart rate 82 /min Elizabeth Ball 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[employer]O MECHANIC Work Phone: [facility] 06-06-2024 13:03-0400 SaO2% (BldA) [Mass fraction] 96 % Elizabeth Ball 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PIANO MECHANIC Work Phone: [facility] 06-06-2024 13:03-0400 Systolic blood pressure 142 mm[Hg] Elizabeth Ball 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PIANO MECHANIC Work Phone: [facility] 03-27-2024 13:25-0400 Diastolic blood pressure 78 mm[Hg] Lyubov Prado 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[employer] ME[employer]ANIC Work Phone: [facility] 03-27-2024 13:25-0400 Heart rate 65 /min Lyubov Prado 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[employer] ME[employer]IC Work Phone: [facility] 03-27-2024 13:25-0400 Systolic blood pressure 134 mm[Hg] Lyubov Prado 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[employer]O ME[employer]ANIC Work Phone: [facility] 11-30-2023 10:17-0400 Diastolic blood pressure 60 mm[Hg] Elizabeth Ball 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[employer]O MECHANIC Work Phone: [facility] 11-30-2023 10:17-0400 Heart rate 70 /min Elizabeth Ball APRN.PIANO MECHANIC Work Phone: [facility] 11-30-2023 10:17-0400 SaO2% (BldA) [Mass fraction] 97 % Elizabeth Ball APRN.PIANO MECHANIC Work Phone: [facility] 11-30-2023 10:17-0400 Systolic blood pressure 150 mm[Hg] Elizabeth Ball APRN.PIANO MECHANIC Work Phone: [facility] 11-09-2023 09:50-0500 Body weight 68.04 kg Elizabeth Ball APRN.PIANO MECHANIC Work Phone: [facility] 11-09-2023 09:50-0500 Diastolic blood pressure 70 mm[Hg] Elizabeth Ball APRN.PIANO MECHANIC Work Phone: [facility] 11-09-2023 09:50-0500 Heart rate 75 /min Elizabeth Ball APRN.PIANO MECHANIC Work Phone: [facility] 11-09-2023 09:50-0500 SaO2% (BldA) [Mass fraction] 98 % Elizabeth Ball APRN.PIANO MECHANIC Work Phone: [facility] 11-09-2023 09:50-0500 Systolic blood pressure 160 mm[Hg] Elizabeth Ball APRN.PIANO MECHANIC Work Phone: [facility] 10-20-2023 14:24-0500 Diastolic blood pressure 66 mm[Hg] Paulina Severino MD Work Phone: [facility] 10-20-2023 14:24-0500 Heart rate 92 /min Paulina Severino MD Work Phone: [facility] 10-20-2023 14:24-0500 SaO2% (BldA) [Mass fraction] 97 % Paulina Severino MD Work Phone: [facility] 10-20-2023 14:24-0500 Systolic blood pressure 140 mm[Hg] Paulina Quintanilla Work Phone: [facility] 08-18-2023 08:31-0500 Body temperature 96.01 [degF] [facility] 08-18-2023 08:31-0500 Diastolic blood pressure 62 mm[Hg] [facility] 08-18-2023 08:31-0500 Heart rate 119 /min [facility] 08-18-2023 08:31-0500 Respiratory rate 16 /min [facility] 08-18-2023 08:31-0500 Systolic blood pressure 156 mm[Hg] [facility] 08-10-2023 16:21-0500 Body height 162.6 cm Anne Villalpando MD Work Phone: [facility] 08-10-2023 16:21-0500 Diastolic blood pressure 60 mm[Hg] Anne Villalpando MD Work Phone: [facility] 08-10-2023 16:21-0500 Heart rate 119 /min Anne Villalpando MD Work Phone: [facility] 08-10-2023 16:21-0500 SaO2% (BldA) [Mass fraction] 97 % Anne Villalpando MD Work Phone: [facility] 08-10-2023 16:21-0500 Systolic blood pressure 148 mm[Hg] Anne Villalpando MD Work Phone: [facility] 08-04-2023 08:53-0500 Body temperature 96.3 [degF] [facility] 08-04-2023 08:53-0500 Diastolic blood pressure 66 mm[Hg] [facility] 08-04-2023 08:53-0500 Heart rate 102 /min [facility] 08-04-2023 08:53-0500 Respiratory rate 18 /min [facility] 08-04-2023 08:53-0500 Systolic blood pressure 177 mm[Hg] [facility] 07-28-2023 09:58-0500 Body temperature 96.6 [degF] [facility] 07-28-2023 09:58-0500 Diastolic blood pressure 65 mm[Hg] [facility] 07-28-2023 09:58-0500 Heart rate 102 /min [facility] 07-28-2023 09:58-0500 Respiratory rate 16 /min [facility] 07-28-2023 09:58-0500 Systolic blood pressure 128 mm[Hg] [facility] 07-21-2023 10:05-0400 Diastolic blood pressure 60 mm[Hg] Pamela Hills MD Work Phone: [facility] 07-21-2023 10:05-0400 Heart rate 114 /min Pamela Hills MD Work Phone: [facility] 07-21-2023 10:05-0400 Respiratory rate 16 /min Pamela Hills MD Work Phone: [facility] 07-21-2023 10:05-0400 SaO2% (BldA) [Mass fraction] 93 % Pamela Hills MD Work Phone: [facility] 07-21-2023 10:05-0400 Systolic blood pressure 148 mm[Hg] Pamela Hills MD Work Phone: [facility] 07-19-2023 15:47-0400 Body height 162.6 cm Paulina Severino MD Work Phone: [facility] 07-19-2023 15:47-0400 Body temperature 98.01 [degF] Paulina Severino MD Work Phone: [facility] 07-19-2023 15:47-0400 Body weight 67.13 kg Paulina Severino MD Work Phone: [facility] 07-19-2023 15:47-0400 Diastolic blood pressure 76 mm[Hg] Paulina Severino MD Work Phone: [facility] 07-19-2023 15:47-0400 Heart rate 118 /min Paulina Severino MD Work Phone: [facility] 07-19-2023 15:47-0400 SaO2% (BldA) [Mass fraction] 98 % Paulina Severino MD Work Phone: [facility] 07-19-2023 15:47-0400 Systolic blood pressure 161 mm[Hg] Paulina Quintanilla Work Phone: [facility] 07-16-2023 09:48-0400 Body height 162.6 cm [facility] 07-16-2023 09:48-0400 Body temperature 97.9 [degF] [facility] 07-16-2023 09:48-0400 Body weight 72.58 kg [facility] 07-16-2023 09:48-0400 Diastolic blood pressure 78 mm[Hg] [facility] 07-16-2023 09:48-0400 Heart rate 110 /min [facility] 07-16-2023 09:48-0400 Respiratory rate 18 /min [facility] 07-16-2023 09:48-0400 Systolic blood pressure 156 mm[Hg] [facility] 07-13-2023 11:14-0400 Body height 162.6 cm Anne Villalpando MD Work Phone: [facility] 07-13-2023 11:14-0400 Body weight 71.67 kg Anne Villalpando MD Work Phone: [facility] 07-13-2023 11:14-0400 Diastolic blood pressure 68 mm[Hg] Anne Villalpando MD Work Phone: [facility] 07-13-2023 11:14-0400 Heart rate 92 /min Anne Villalpando MD Work Phone: [facility] 07-13-2023 11:14-0400 Respiratory rate 18 /min Anne Villalpando MD Work Phone: [facility] 07-13-2023 11:14-0400 Systolic blood pressure 140 mm[Hg] Anne Villalpando MD Work Phone: [facility] 06-29-2023 16:01-0400 Body height 162.6 cm Elizabeth Ball 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[employer] Work Phone: [facility] 06-29-2023 16:01-0400 Body weight 72.58 kg Elizabeth Ball 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[employer] Work Phone: [facility] 06-29-2023 16:01-0400 Diastolic blood pressure 70 mm[Hg] Elizabeth Ball 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[employer] ME[employer]ANIC Work Phone: [facility] 06-29-2023 16:01-0400 Heart rate 88 /min Elizabeth Ball 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[employer]O MECHANIC Work Phone: [facility] 06-29-2023 16:01-0400 Respiratory rate 16 /min Elizabeth Ball 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[employer]O MECHANIC Work Phone: [facility] 06-29-2023 16:01-0400 Systolic blood pressure 140 mm[Hg] Elizabeth Ball 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[employer]O MECHANIC Work Phone: [facility] 06-09-2023 13:18-0400 Body height 162.6 cm Davin August PA-C Work Phone: [facility] 06-09-2023 13:18-0400 Body weight 72.12 kg Davin August PA-C Work Phone: [facility] 06-09-2023 13:18-0400 Diastolic blood pressure 53 mm[Hg] Davin August PA-C Work Phone: [facility] 06-09-2023 13:18-0400 Heart rate 101 /min Davin August PA-C Work Phone: [facility] 06-09-2023 13:18-0400 SaO2% (BldA) [Mass fraction] 99 % Davin TAYLOR-Linus Work Phone: [facility] 06-09-2023 13:18-0400 Systolic blood pressure 170 mm[Hg] Davin Pulliam A-C Work Phone: [facility] 05-26-2023 10:45-0400 Diastolic blood pressure 69 mm[Hg] Roseline Pearson MD Work Phone: [facility] 05-26-2023 10:45-0400 Heart rate 80 /min Roseline Pearson MD Work Phone: [facility] 05-26-2023 10:45-0400 Respiratory rate 17 /min Roseline Pearson MD Work Phone: [facility] 05-26-2023 10:45-0400 SaO2% (BldA) [Mass fraction] 96 % Roseline Pearson MD Work Phone: [facility] 05-26-2023 10:45-0400 Systolic blood pressure 169 mm[Hg] Roseline Pearson MD Work Phone: [facility] 05-26-2023 10:28-0400 Body temperature 97.5 [degF] Roseline Pearson MD Work Phone: [facility] 05-26-2023 09:10-0400 Body height 162.6 cm Roseline Pearson MD Work Phone: [facility] 05-26-2023 09:10-0400 Body weight 72.12 kg Roseline Pearson MD Work Phone: [facility] 04-22-2023 12:59-0400 Body height 162.6 cm Paulina Severino MD Work Phone: [facility] 04-22-2023 12:59-0400 Body temperature 98.91 [degF] Paulina Severino MD Work Phone: [facility] 04-22-2023 12:59-0400 Body weight 72.12 kg Paulina Severino MD Work Phone: [facility] 04-22-2023 12:59-0400 Diastolic blood pressure 60 mm[Hg] Paulina Severino MD Work Phone: [facility] 04-22-2023 12:59-0400 Heart rate 89 /min Paulina Severino MD Work Phone: [facility] 04-22-2023 12:59-0400 SaO2% (BldA) [Mass fraction] 96 % Paulina Severino MD Work Phone: [facility] 04-22-2023 12:59-0400 Systolic blood pressure 139 mm[Hg] Paulina Quintanilla Work Phone: [facility] 02-24-2023 10:40-0400 Diastolic blood pressure 76 mm[Hg] Paulina Severino MD Work Phone: [facility] 02-24-2023 10:40-0400 Heart rate 64 /min Paulina Severino MD Work Phone: [facility] 02-24-2023 10:40-0400 Respiratory rate 18 /min Paulina Severino MD Work Phone: [facility] 02-24-2023 10:40-0400 SaO2% (BldA) [Mass fraction] 98 % Paulina Severino MD Work Phone: [facility] 02-24-2023 10:40-0400 Systolic blood pressure 163 mm[Hg] Paulina Quintanilla Work Phone: [facility] 01-25-2023 14:00-0400 Body height 162.6 cm Jessica Jorge PA-C Work Phone: [facility] 01-25-2023 14:00-0400 Body weight 72.58 kg Jessica Jorge PA-C Work Phone: [facility] 01-25-2023 14:00-0400 Diastolic blood pressure 66 mm[Hg] Jessica Jorge PA-C Work Phone: [facility] 01-25-2023 14:00-0400 Heart rate 60 /min Jessica Jorge PA-C Work Phone: [facility] 01-25-2023 14:00-0400 Systolic blood pressure 146 mm[Hg] Jessica Jorge PA-C Work Phone: [facility] 12-15-2022 15:24-0400 Diastolic blood pressure 60 mm[Hg] Anne Villalpando MD Work Phone: [facility] 12-15-2022 15:24-0400 Heart rate 74 /min Anne Villalpando MD Work Phone: [facility] 12-15-2022 15:24-0400 SaO2% (BldA) [Mass fraction] 95 % Anne Villalpando MD Work Phone: [facility] 12-15-2022 15:24-0400 Systolic blood pressure 102 mm[Hg] Anne Villalpando MD Work Phone: [facility] 08-06-2022 11:29-0500 Body height 162.6 cm Paulina Severino MD Work Phone: [facility] 08-06-2022 11:29-0500 Body weight 69.4 kg Paulina Severino MD Work Phone: [facility] 08-06-2022 11:29-0500 Diastolic blood pressure 44 mm[Hg] Paulina Severino MD Work Phone: [facility] 08-06-2022 11:29-0500 Heart rate 71 /min Paulina Severino MD Work Phone: [facility] 08-06-2022 11:29-0500 SaO2% (BldA) [Mass fraction] 99 % Paulina Severino MD Work Phone: [facility] 08-06-2022 11:29-0500 Systolic blood pressure 127 mm[Hg] Paulina Quintanilla Work Phone: [facility] 07-10-2022 10:32-0400 Diastolic blood pressure 43 mm[Hg] Paulina Severino MD Work Phone: [facility] 07-10-2022 10:32-0400 Heart rate 74 /min Paulina Severino MD Work Phone: [facility] 07-10-2022 10:32-0400 Systolic blood pressure 119 mm[Hg] Paulina Quintanilla Work Phone: [facility] 06-17-2022 11:37-0400 Body height 162.7 cm Elizabeth Ball 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PIANO MECHANIC Work Phone: [facility] 06-17-2022 11:37-0400 Diastolic blood pressure 74 mm[Hg] Elizabeth Ball 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PIANO MECHANIC Work Phone: [facility] 06-17-2022 11:37-0400 Heart rate 72 /min Elizabeth Ball 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PIANO MECHANIC Work Phone: [facility] 06-17-2022 11:37-0400 SaO2% (BldA) [Mass fraction] 99 % Elizabeth Ball 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PIANO MECHANIC Work Phone: [facility] 06-17-2022 11:37-0400 Systolic blood pressure 140 mm[Hg] Elizabeth Ball 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PIANO MECHANIC Work Phone: [facility] 04-14-2022 14:42-0400 Heart rate 76 /min Malgorzata Kirkpatrick MD Work Phone: [facility] 04-14-2022 14:42-0400 Respiratory rate 14 /min Malgorzata Kirkpatrick MD Work Phone: [facility] 04-14-2022 14:42-0400 SaO2% (BldA) [Mass fraction] 98 % Malgorzata Kirkpatrick MD Work Phone: [facility] 03-30-2022 15:12-0400 Body height 163.8 cm Landen Milner PA-C Work Phone: [facility] 03-30-2022 15:12-0400 Body weight 78.93 kg Landen Milner PA-C Work Phone: [facility] 03-30-2022 15:12-0400 Diastolic blood pressure 62 mm[Hg] Landen Lomelion PA-C Work Phone: [facility] 03-30-2022 15:12-0400 Heart rate 73 /min Landen Milner PA-C Work Phone: [facility] 03-30-2022 15:12-0400 Respiratory rate 18 /min Landen Milner PA-C Work Phone: [facility] 03-30-2022 15:12-0400 SaO2% (BldA) [Mass fraction] 98 % Landen Milner PA-C Work Phone: [facility] 03-30-2022 15:12-0400 Systolic blood pressure 184 mm[Hg] Landen Burnett n PA-C Work Phone: [facility] 03-27-2022 15:14-0400 Body height 163.8 cm Paulina Severino MD Work Phone: [facility] 03-27-2022 15:14-0400 Body weight 78.93 kg Paulina Severino MD Work Phone: [facility] 03-27-2022 15:14-0400 Diastolic blood pressure 45 mm[Hg] Paulina Severino MD Work Phone: [facility] 03-27-2022 15:14-0400 Heart rate 72 /min Paulina Severino MD Work Phone: [facility] 03-27-2022 15:14-0400 Systolic blood pressure 167 mm[Hg] Paulina Quintanilla Work Phone: [facility] 03-13-2022 11:06-0400 Body height 163.8 cm Paulina Severino MD Work Phone: [facility] 03-13-2022 11:06-0400 Body weight 79.11 kg Paulina Severino MD Work Phone: [facility] 03-13-2022 11:06-0400 Diastolic blood pressure 56 mm[Hg] Paulina Severino MD Work Phone: [facility] 03-13-2022 11:06-0400 Heart rate 102 /min Paulina Severino MD Work Phone: [facility] 03-13-2022 11:06-0400 Systolic blood pressure 155 mm[Hg] Paulina Quintanilla Work Phone: [facility] 01-01-2022 10:44-0400 Body height 163.8 cm Davin BUTLERC Work Phone: [facility] 01-01-2022 10:44-0400 Body weight 85.46 kg Davin BUTLERC Work Phone: [facility] 01-01-2022 10:44-0400 Diastolic blood pressure 47 mm[Hg] Davin BUTLERC Work Phone: [facility] 01-01-2022 10:44-0400 Heart rate 65 /min Davin BUTLERC Work Phone: [facility] 01-01-2022 10:44-0400 SaO2% (BldA) [Mass fraction] 100 % Davin BUTLERC Work Phone: [facility] 01-01-2022 10:44-0400 Systolic blood pressure 153 mm[Hg] Davin Pulliam A-C Work Phone: [facility] 12-30-2021 14:02-0400 Diastolic blood pressure 60 mm[Hg] [facility] 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[employer]O ME[employer]ANIC Work Phone: [facility] 12-30-2021 14:02-0400 Systolic blood pressure 110 mm[Hg] Brigitte Kupiec 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PIANO MECHANIC Work Phone: [facility] 12-30-2021 13:20-0400 Body height 164.1 cm [facility] 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PIANO MECHANIC Work Phone: [facility] 12-30-2021 13:20-0400 Body weight 85.82 kg [facility] 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PIANO MECHANIC Work Phone: [facility] 12-30-2021 13:20-0400 Heart rate 71 /min [facility] 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PIANO MECHANIC Work Phone: [facility] 12-30-2021 13:20-0400 SaO2% (BldA) [Mass fraction] 97 % [facility] 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PIANO MECHANIC Work Phone: [facility] 12-22-2021 10:15-0400 Diastolic blood pressure 60 mm[Hg] Paulina Severino MD Work Phone: [facility] 12-22-2021 10:15-0400 Systolic blood pressure 174 mm[Hg] Paulina Quintanilla Work Phone: [facility] 12-22-2021 09:59-0400 Body height 163.8 cm Paulina Severino MD Work Phone: [facility] 12-22-2021 09:59-0400 Body temperature 97.7 [degF] Paulina Severino MD Work Phone: [facility] 12-22-2021 09:59-0400 Body weight 86.64 kg Paulina Severino MD Work Phone: [facility] 12-22-2021 09:59-0400 Heart rate 88 /min Paulina Severino MD Work Phone: [facility] 12-22-2021 09:59-0400 SaO2% (BldA) [Mass fraction] 97 % Paulina Severino MD Work Phone: [facility] Encounters Encounter Date Encounter Type Care Provider Facility Start: 05-29-2025 ambulatory Jazmyne Felia OLS Facili ty:[facility] Start: 05-24-2025 ambulatory Jazmyne Felia OLS Facili ty:[facility] Start: 05-22-2025 ambulatory Jazmyne Felia OLS Facili ty:[facility] Start: 05-15-2025 ambulatory Out of Town Doctor Faci lity:[facility] Start: 05-10-2025 End: 05-10-2025 Telephone encounter Katelyn Duque MD Work Phone: Urology Comment on above: Orders Start: 05-08-2025 ambulatory Out of Town Doctor Faci lity:[facility] Start: 05-07-2025 End: 05-07-2025 Orders Only Elizabeth Echavarriaews 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PIANO MECHANIC Work Phone: [facility] Comment on above: Carotid stenosis, as ymptomatic, bilateral (Primary Dx); History of bilateral carotid endarterectomy Start: 05-03-2025 ambulatory Out of Town Doctor Faci lity:[facility] Start: 05-01-2025 End: 05-02-2025 Telephone encounter Ayden Mills MD Work Phone: [facility] Start: 04-05-2025 End: 04-05-2025 Telephone encounter Paulina Severino MD Work Phone: [facility] Start: 04-05-2025 End: 05-02-2025 Evaluation and management of inpatient [facility] Facility:[facility] Start: 04-04-2025 End: 04-05-2025 ambulatory Paulina Severino MD Work Phone: [facility] Comment on above: [facility] Start: 04-04-2025 End: 04-04-2025 Telephone encounter Thierry Rush MD Work Phone: Plastic Surgery Comment on above: Surgery Arrival Start: 04-02-2025 End: 04-03-2025 Telephone encounter Paulina Severino MD Work Phone: [facility] [place] Comment on above: Patient Update; Deya ent Question Start: 03-30-2025 End: 05-30-2025 Follow-up encounter Paulina Severino MD Work Phone: [facility] Start: 03-29-2025 End: 03-29-2025 Admission to [facility] Pre Surgical Testing Start: 03-29-2025 End: 03-29-2025 Preprocedural examination done Pst 1 [facility] Work Phone: Start: 03-29-2025 End: 03-29-2025 ambulatory PAULINA SEVERINO Pre Surgical Testing Comment on above: Preoperative examina tion (Primary Dx); Obesity, Class III, BMI >= 40; History of CVA (cerebrovascular accident); Coronary artery disease involving [place] coronary artery of [place] heart, unspecified whether angina present; HFrEF (heart failure with reduced ejection fraction) ([facility]); Primary hypertension; Type 2 diabetes mellitus with diabetic neuropathy, with long-term current use of insulin ([facility]); Peripheral artery disease; Anemia, unspecified type Start: 03-28-2025 Encounter for other preprocedural examination LYUBOV [facility] Start: 03-28-2025 Preprocedural examination done Pst 1 [facility] Start: 03-27-2025 End: 03-27-2025 ambulatory Lyubov Hernandez APRN.CNP Work Phone: [facility] Comment on above: Xarelto Start: 03-21-2025 End: 03-21-2025 Telephone encounter Eduin Coleman APRN.PIANO MECHANIC Work Phone: [facility] Comment on above: Beta Tester - O ther Start: 03-20-2025 End: 03-20-2025 Office outpatient visit 25 minutes Thierry Rush MD Work Phone: Plastic Surgery Comment on above: Neuropathic pain (Pr imary Dx) Start: 03-20-2025 End: 03-20-2025 ambulatory THIERRY RUSH Facility:[facility] Start: 03-19-2025 End: 03-19-2025 Telephone encounter Paulina Severino MD Work Phone: NOC Start: 03-15-2025 End: 03-15-2025 Telephone encounter Paulina Severino MD Work Phone: [facility] Comment on above: Transition Of Care Start: 03-05-2025 End: 03-05-2025 Patient encounter procedure Eduin Coleman APRN.PIANO MECHANIC Work Phone: [facility] Comment on above: Ultrasound Start: 03-05-2025 End: 03-05-2025 Telephone encounter Angela Cuadra MD [facility] Department Comment on above: Fabric Transition of Care Start: 03-05-2025 End: 03-05-2025 Office outpatient visit 25 minutes Lyubov Hernandez APRN.CNP Work Phone: [facility] Comment on above: Type 2 diabetes demetris itus with diabetic neuropathy, with long- term current use of insulin (HCC) (Primary Dx); PAD (peripheral artery disease) Start: 03-05-2025 End: 03-05-2025 ambulatory Eduin Coleman APRN.PIANO MECHANIC Work Phone: [facility] Start: 02-28-2025 End: 02-28-2025 ambulatory EDUIN COLEMAN [facility] Start: 02-28-2025 End: 02-28-2025 Patient encounter procedure Eduin Coleman APRN.PIANO MECHANIC [facility] Comment on above: HFrEF (heart failure with reduced ejection fraction) (HCC) (Primary Dx); CAD S/P percutaneous coronary angioplasty; Mixed hyperlipidemia; Peripheral artery disease; Hypertension; S/P vascular bypass; History of CVA (cerebrovascular accident); Type 2 diabetes mellitus with diabetic neuropathy, with long-term current use of insulin (HCC); Coronary arteriosclerosis Start: 02-27-2025 End: 02-27-2025 Telephone encounter Angela Cuadra MD [facility] Department Comment on above: Fabric Transition of Care Start: 02-23-2025 End: 02-26-2025 Evaluation and management of inpatient DAVIN TOBIAS Facility:[facility] Start: 02-05-2025 End: 02-05-2025 ambulatory PAULINA SEVERINO [facility] Start: 01-29-2025 End: 01-29-2025 Office outpatient visit 25 minutes Paulina Severino MD Work Phone: [facility] Comment on above: Coronary arterioscle rosis (Primary Dx); Type 2 diabetes mellitus with diabetic peripheral angiopathy without gangrene, with long-term current use of insulin (HCC); Chronic anticoagulation; S/P AKA (above knee amputation) bilateral (HCC); Mixed hyperlipidemia Start: 01-29-2025 End: 01-29-2025 ambulatory LYUBOV HERNANDEZ Facility:[facility] Start: 01-25-2025 End: 01-26-2025 Refill Paulina Severino MD Work Phone: [facility] Comment on above: Refill Request Start: 01-07-2025 End: 01-08-2025 Refill Paulina Severino MD Work Phone: [facility] Comment on above: Refill Request Start: 12-30-2024 End: 01-03-2025 ambulatory Paulina Severino MD Work Phone: [facility] Comment on above: Nitro glycerin table ts Start: 12-11-2024 End: 12-13-2024 ambulatory Paulina Severino MD Work Phone: [facility] Comment on above: Referal Start: 12-10-2024 End: 12-11-2024 Refill Paulina Severino MD Work Phone: [facility] Comment on above: Refill Request Start: 11-23-2024 End: 11-23-2024 Office outpatient visit 40 minutes Davin Moran MD Work Phone: [facility] Comment on above: Coronary artery dise ase involving [place] coronary artery of [place] heart without angina pectoris (Primary Dx); S/P coronary artery stent placement; Primary hypertension; Mixed hyperlipidemia; Type 2 diabetes mellitus with diabetic neuropathy, with long-term current use of insulin (HCC); PVD (peripheral vascular disease) ([facility]) Start: 11-23-2024 End: 11-23-2024 ambulatory SELMA CHAPARRO [facility] Start: 11-22-2024 End: 11-29-2024 Telephone encounter Davin Moran MD Work Phone: [facility] Comment on above: Patient Update Start: 11-18-2024 End: 11-20-2024 Refill Lyubov Hernandez APRN.CNP Work Phone: [facility] Comment on above: Refill Request Start: 11-16-2024 End: 11-16-2024 Telephone encounter Davin Moran MD Work Phone: [facility] Comment on above: Appointment Start: 11-15-2024 End: 11-15-2024 Patient Outreach Loren Wolfe counter checkerYard Pipe Grader Management Comment on above: Transition Of Care ( TCM F/U Outreach) Start: 11-14-2024 End: 11-14-2024 ambulatory SELMA CHAPARRO Facility:[facility] Start: 11-08-2024 End: 11-08-2024 ambulatory SELMA CHAPARRO Facility:[facility] Start: 11-08-2024 End: 11-08-2024 Patient encounter procedure Lyubov Hernandez APRN.PIANO MECHANIC Work Phone: [facility] Comment on above: Hospital discharge f ollow-up (Primary Dx); History of non-ST elevation myocardial infarction (NSTEMI); Superficial thrombophlebitis of left upper extremity; Hypertension; Type 2 diabetes mellitus with diabetic neuropathy, with long-term current use of insulin (HCC); PVD (peripheral vascular disease) (HCC); Stage 3a chronic kidney disease (HCC) Start: 11-06-2024 End: 11-06-2024 Patient Outreach Jodi Francis RN Work Phone: [employer] Comment on above: Transition Of Care ( TCM Initial Hospital Discharge from f main/) Start: 11-02-2024 End: 11-02-2024 Evaluation and management of inpatient SELMA CHAPARRO Facility:[facility] Start: 10-31-2024 End: 10-31-2024 Evaluation and management of inpatient STEFFANIE Christina KAYODE Facility:[facility] Start: 10-30-2024 End: 10-30-2024 ambulatory LOU CAENLA Facility:[facility] Start: 10-25-2024 End: 10-25-2024 Evaluation and management of inpatient PAULINA R KONTAK Facility:[facility] Start: 10-25-2024 End: 10-25-2024 Evaluation and management of inpatient PAULINA R KONTAK Facility:[facility] Start: 10-23-2024 End: 10-23-2024 Evaluation and management of inpatient PAULINA R KONTAK Facility:[facility] Start: 10-21-2024 End: 10-21-2024 Evaluation and management of inpatient PAULINA R KONTAK Facility:[facility] Start: 10-18-2024 End: 10-18-2024 ambulatory UNKNOWN PROVIDER [facility] Start: 10-18-2024 End: 11-04-2024 Evaluation and management of inpatient PAULINA SEVERINO Facility:[facility] Start: 10-18-2024 Emergency department patient visit PAULINA SEVERINO Facility:[facility] Start: 10-16-2024 End: 10-16-2024 ambulatory LYUBOV HERNANDEZ [facility] Start: 10-09-2024 End: 10-09-2024 ambulatory PAULINA SEVERINO Facility:[facility] Start: 10-09-2024 End: 10-09-2024 Transitional care manage srvc 7 day discharge Lyubov Hernandez 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NATHALY Work Phone: Family Practice Comment on above: Hyperkalemia (Primar y Dx); Hospital discharge follow-up; Type 2 diabetes mellitus with diabetic peripheral angiopathy without gangrene, with long-term current use of insulin ([facility]); HFrEF (heart failure with reduced ejection fraction) ([facility]) Start: 10-03-2024 End: 10-06-2024 Evaluation and management of inpatient DARRON VALENTINO Facility:[facility] Start: 10-03-2024 End: 10-03-2024 ambulatory LYUBOV HERNANDEZ [facility] Start: 10-03-2024 End: 10-03-2024 Telephone encounter Jonathan Lambert DO Work Phone: [facility] [place] Comment on above: Results; Orders Start: 10-02-2024 End: 10-02-2024 ambulatory LYUBOV HERNANDEZ Facility:[facility] Start: 09-07-2024 End: 09-07-2024 Telephone encounter Paulina Severino MD Work Phone: Family Practice Comment on above: Received Outside Med [facility] Records ([facility] Plan of care orders. ) Start: 08-31-2024 End: 08-31-2024 Telephone encounter Paulina Severino MD Work Phone: Family Practice Comment on above: Orders ([facility]) Start: 08-22-2024 End: 08-22-2024 Telephone encounter Paulina Severino MD Work Phone: [facility] Comment on above: Received Outside Med [facility] Records ([facility] PT order 1w1 week of 08/21/2024 ) Start: 08-22-2024 End: 08-22-2024 ambulatory LYUBOV HERNANDEZ Facility:[facility] Start: 08-22-2024 End: 08-22-2024 Patient encounter procedure Lyubov Hernandez APRN.PIANO MECHANIC Work Phone: [facility] Comment on above: Medicare annual well ness visit, subsequent (Primary Dx); Atherosclerosis of [place] coronary artery of [place] heart without angina pectoris; Mixed hyperlipidemia; Type 2 diabetes mellitus with diabetic neuropathy, with long-term current use of insulin (HCC); PAD (peripheral artery disease) (HCC); S/P AKA (above knee amputation), right (HCC); S/P AKA (above knee amputation) unilateral, left (HCC) Start: 08-21-2024 End: 08-21-2024 Refill Elizabeth Ball APRN.PIANO MECHANIC Work Phone: [facility] Comment on above: Refill Request Start: 08-14-2024 End: 08-14-2024 Telephone encounter Paulina Severino MD Work Phone: [facility] Comment on above: Orders ([facility]) Start: 08-10-2024 End: 08-10-2024 Telephone encounter Paulina Severino MD Work Phone: [facility] Start: 08-07-2024 End: 08-07-2024 Orders Only Thierry Rush MD Work Phone: Plastic Surgery Comment on above: Neuropathic pain (Pr imary Dx) Start: 07-28-2024 End: 07-28-2024 Telephone encounter Thierry Rush MD Work Phone: Plastic Surgery Comment on above: Auth Determination Start: 07-25-2024 End: 07-25-2024 ambulatory LYUBOV HERNANDEZ Facility:[facility] Start: 07-25-2024 End: 07-25-2024 Office outpatient visit 25 minutes Lyubov Hernandez APRN.PIANO MECHANIC Work Phone: [facility] Comment on above: Viral URI with cough (Primary Dx); Type 2 diabetes mellitus with diabetic peripheral angiopathy without gangrene, with long-term current use of insulin (HCC) Start: 07-19-2024 End: 07-19-2024 Telephone encounter Eduin Coleman APRN.PIANO MECHANIC Work Phone: [facility] Comment on above: Results Start: 07-19-2024 ambulatory EDUIN COLEMAN Facil ity:[facility] Start: 07-19-2024 End: 07-19-2024 Subsequent hospital visit by physician Card Lab Stress [facility] Comment on above: HFrEF (heart failure with reduced ejection fraction) ([facility]) [I50.20] Start: 07-14-2024 End: 07-14-2024 Telephone encounter Paulina Severino MD Work Phone: [facility] Comment on above: Office Notes Faxed Start: 07-12-2024 End: 07-12-2024 Patient encounter procedure Eduin Coleman APRN.PIANO MECHANIC Work Phone: [facility] Comment on above: HFrEF (heart failure with reduced ejection fraction) (HCC) (Primary Dx); Atherosclerosis of [place] coronary artery of [place] heart without angina pectoris; Mixed hyperlipidemia; PAD (peripheral artery disease) (HCC); Hypertension; S/P vascular bypass; History of CVA (cerebrovascular accident); Type 2 diabetes mellitus with diabetic neuropathy, with long-term current use of insulin (HCC) Start: 07-12-2024 End: 07-12-2024 ambulatory SELF Facility[facility] Start: 07-11-2024 End: 07-11-2024 Telephone encounter Paulina Severino MD Work Phone: [facility] Comment on above: Release Of Medical R ecords; Home Care (Recent H&P) Start: 07-11-2024 End: 07-11-2024 Office outpatient new 45 minutes Thierry Rush MD Work Phone: Plastic Surgery Comment on above: Neuropathic pain (Pr imary Dx) Start: 07-11-2024 End: 07-11-2024 ambulatory THIERRY RUSH [facility] Start: 07-10-2024 End: 07-10-2024 Refill 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: [facility] Comment on above: Refill Request Start: 07-04-2024 End: 07-04-2024 Telephone encounter Paulina Severino MD Work Phone: [facility] Comment on above: Orders ([facility]) Start: 06-30-2024 End: 06-30-2024 Telephone encounter Paulina Severino MD Work Phone: [facility] Comment on above: Received Outside Med [facility] Records ([email or web address] Verbal order for PT 06/26/2024) Start: 06-27-2024 End: 06-27-2024 ambulatory LYUBOV HERNANDEZ Facility:[facility] Start: 06-27-2024 End: 06-27-2024 Office outpatient visit 25 minutes 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: [facility] Comment on above: Type 2 diabetes demetris itus with diabetic peripheral angiopathy without gangrene, with long-term current use of insulin (HCC) (Primary Dx); Encounter for immunization Start: 06-18-2024 End: 06-19-2024 ambulatory Paulina Severino MD Work Phone: [facility] Comment on above: Rehab Start: 06-13-2024 End: 06-13-2024 MC Patient Msg Paulina Severino MD Work Phone: [facility] Comment on above: Refill Sent Start: 06-07-2024 End: 06-07-2024 ambulatory Ronna Leger RN [facility] Start: 06-07-2024 End: 06-07-2024 Patient encounter procedure Ronna Leger RN [facility] Comment on above: ACCarri JUAN RN ( Medication Adherence review per request of payer) Start: 06-07-2024 End: 06-07-2024 Telephone encounter Paulina Severino MD Work Phone: [facility] Comment on above: home care request (R ecent OV notes) Start: 06-06-2024 End: 06-07-2024 Telephone encounter Elizabeth Ball APRN.PIANO MECHANIC Work Phone: [facility] Comment on above: Referral Information Start: 06-06-2024 End: 06-06-2024 Patient encounter procedure Elizabeth Ball APRN.PIANO MECHANIC Work Phone: [facility] Comment on above: Carotid stenosis, as ymptomatic, bilateral (Primary Dx); History of bilateral carotid endarterectomy; History of above-knee amputation of both lower extremities (HCC); Amputation stump pain (HCC) (HCC); Aortoiliac occlusive disease (HCC) Start: 06-06-2024 End: 06-07-2024 ambulatory Paulina Severino MD Work Phone: [facility] Comment on above: Rehab Start: 05-24-2024 ambulatory ELIZABETH Hernandez ty:[facility] Start: 05-24-2024 End: 05-24-2024 Subsequent hospital visit by physician [place] [facility] Comment on above: Carotid stenosis, as ymptomatic, bilateral [I65.23] Start: 04-19-2024 Telephone encounter Lyubov barbosa 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PIANO MECHANIC Work Phone: [facility] Comment on above: Results Start: 04-12-2024 ambulatory Madonna Montiel RN [facility] Comment on above: ACM DRAKE RN ( Medication adherence review per request of payer ) Start: 04-11-2024 Telephone encounter Lyubov barbosa APRN.PIANO MECHANIC Work Phone: [facility] [place] Comment on above: Appointment Start: 04-03-2024 Orders Only Elizabeth caceres 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PIANO MECHANIC Work Phone: [facility] Comment on above: Carotid stenosis, as ymptomatic, bilateral (Primary Dx) Start: 03-27-2024 End: 03-27-2024 Office outpatient visit 25 minutes Lyubov Prado APRN.PIANO MECHANIC Work Phone: [facility] Comment on above: Type 2 diabetes demetris itus with diabetic peripheral angiopathy without gangrene, with long-term current use of insulin (HCC) (Primary Dx); Spinal stenosis of lumbar region with neurogenic claudication; PAD (peripheral artery disease) ([facility]); Status post above-knee amputation of both lower extremities ([facility]); HFrEF (heart failure with reduced ejection fraction) ([facility]); Coronary arteriosclerosis Start: 03-21-2024 ambulatory Madonna Yip [facility] Comment on above: ACM DRAKE RN ( Medication adherence review per request of payer ) Start: 03-15-2024 Telephone encounter Paulina Severino MD Work Phone: [facility] Comment on above: Patient Update Start: 03-14-2024 ambulatory Paulina astudillo MD Work Phone: Internal [facility] Start: 03-07-2024 ambulatory Paulina astudillo MD Work Phone: [facility] Comment on above: Recheck Start: 03-07-2024 Telephone encounter Paulina Severino MD Work Phone: [facility] Comment on above: Received Outside Med ical Records ([facility]) Start: 03-06-2024 Telephone encounter Paulina Severino MD Work Phone: [facility] Comment on above: Patient Update; Medi cation Problem (Medication clarification needed); Received Outside Medical Records ([place] Telephone visit summary 03/06/2024) Start: 03-02-2024 Refill Lyubov Raghav A PRN.PIANO MECHANIC Work Phone: [facility] Comment on above: Refill Request Start: 02-29-2024 ambulatory Elizabeth caceres 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PIANO MECHANIC Work Phone: [facility] Comment on above: Script for [employer] Start: 01-30-2024 Refill Lyubov Raghav A PRN.PIANO MECHANIC Work Phone: [facility] Comment on above: Refill Request Start: 01-17-2024 Refill Lyubov Raghav A PRN.PIANO MECHANIC Work Phone: [facility] Comment on above: Refill Request Start: 01-11-2024 Refill Paulina astudillo MD Work Phone: [facility] Comment on above: Refill Request Start: 01-03-2024 Refill Paulina astudillo MD Work Phone: [facility] Comment on above: Refill Request Start: 12-29-2023 Patient Outreach Fritz Payan RN Work Phone: [employer] [facility] Comment on above: Post-Acute Transitio n (PAC Sixth Outreach) [facility]reach ([facility] HCC/ CARE GAPS) Start: 12-28-2023 ambulatory Paulina astudillo MD Work Phone: [facility] Comment on above: [place] Start: 12-23-2023 Orders Only Elizabeth Blackwell ws 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PIANO MECHANIC Work Phone: [facility] Comment on above: Aortoiliac occlusive disease (HCC) (Primary Dx); S/P AKA (above knee amputation) bilateral (HCC) Start: 12-22-2023 Patient Outreach Fritz Payan RN Work Phone: [employer] [facility] Comment on above: Post-Acute Transitio n (PAC Fifth Outreach) Start: 12-20-2023 ambulatory Paulina astudillo MD Work Phone: [facility] Comment on above: My right eye Start: 12-09-2023 Telephone encounter Paulina Severino MD Work Phone: [facility] Comment on above: Received Outside [facility] Records ([facility] ([facility]) Mobile physician summary 12/07/2023 ) Start: 12-08-2023 Patient Outreach Fritz Payan RN Work Phone: [employer] [facility] Comment on above: Post-Acute Transitio n (PAC Third Outreach) Start: 12-07-2023 Orders Only Elizabeth caceres 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PIANO MECHANIC Work Phone: [facility] Start: 12-02-2023 Patient Outreach Fritz Payan RN Work Phone: [facility] [employer] Comment on above: Post-Acute Transitio n (PAC Second Outreach ( second attempt )) Start: 12-01-2023 Patient Outreach Fritz Payan RN Work Phone: [employer] [facility] Comment on above: Post-Acute Transitio n (PAC Second Outreach) Start: 11-30-2023 End: 11-30-2023 Patient encounter procedure Elizabeth Quinn WILEY.PIANO MECHANIC Work Phone: [facility] Comment on above: S/P AKA (above knee amputation), right (HCC) (Primary Dx); Hx of AKA (above knee amputation), left (HCC) Start: 11-24-2023 Patient Outreach Fritz Payan RN Work Phone: [employer] Comment on above: Post-Acute Transitio n (PAC First Outreach) Start: 11-20-2023 Refill Paulina astudillo MD Work Phone: [facility] Comment on above: Refill Request Start: 11-16-2023 Patient Outreach Fritz Payan RN Work Phone: [employer] [facility] Comment on above: Post-Acute Transitio n (PAC CHART REVIEW) Start: 11-09-2023 Telephone encounter Paulina Severino MD Work Phone: [facility] Comment on above: Received Outside [facility] Records ([facility], Jaquelin Sykes MD) Start: 11-09-2023 End: 11-09-2023 Patient encounter procedure Elizabeth Ball APRN.PIANO MECHANIC Work Phone: [facility] [...] ambulatory Marianna Klein MA Work Phone: [facility] Start: 11-04-2023 Follow-up encounter Marianna hernandez MA Work Phone: Internal Medicine Comment on above: Post-Acute Transitio n (SNF TCM PAC Follow up #2 chart review ) Start: 11-03-2023 Telephone encounter Paulina Severino MD Work Phone: [facility] Comment on above: Received Outside Med ical Records ([facility] Orders for OT Eval and treat for ADL's 10/29/2023) Start: 11-02-2023 Telephone encounter Paulina Severino MD Work Phone: [facility] Comment on above: Orders ([facility]) Start: 11-01-2023 Telephone encounter Paulina Severino MD Work Phone: [facility] Comment on above: Received Outside Med ical Records ([facility] for SN, PT, STONE DRILLER HELPER to evaluate and treat. 10/21/2023) Start: 10-28-2023 ambulatory Marianna Klein MA Work Phone: [facility] Start: 10-28-2023 Follow-up encounter Marianna hernandez MA Work Phone: Internal Medicine Comment on above: Post-Acute Transitio n (SNF TCM PAC Follow up #1 ) Start: 10-28-2023 Telephone encounter Paulina Severino MD Work Phone: [facility] Comment on above: Orders ([facility]) Start: 10-24-2023 ambulatory Paulina astudillo MD Work Phone: [facility] Comment on above: Gabapentin 600 MG Start: 10-21-2023 Telephone encounter Paulina Severino MD Work Phone: [facility] Comment on above: Orders ([facility] Start: 10-20-2023 End: 10-20-2023 Patient encounter procedure Paulina Severino MD Work Phone: [facility] Comment on above: Aortoiliac occlusive disease (HCC) [...] of insulin (HCC); Coronary artery disease involving [place] coronary artery of [place] heart with angina pectoris (HCC); Abnormality of gait; Falling episodes Start: 08-18-2023 End: 08-18-2023 Patient encounter procedure [facility] Comment on above: Non-pressure chronic ulcer [...] Telephone encounter Paulina Severino MD Work Phone: [facility] Comment on above: Received Outside [facility] Records ([facility] Tele Audio visit 08/02/2023) Start: 08-04-2023 End: 08-04-2023 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) (Primary Dx); Type 2 diabetes mellitus with foot ulcer (CODE) ([facility]); Peripheral vascular disease, unspecified (HCC) Start: 07-29-2023 Telephone encounter Michele alexander MD Work Phone: [facility] Management Comment on above: Injection reschedule ; Need Approval to hold Anticoagulation Start: 07-28-2023 End: 07-28-2023 Patient encounter procedure Dylan [facility] Comment on above: Non-pressure chronic ulcer [...] Telephone encounter Paulina Severino MD Work Phone: [facility] Start: 07-19-2023 End: 07-19-2023 Patient encounter procedure Paulina Severino MD Work Phone: [facility] Comment on above: Encounter for immuni zation (Primary Dx); Tachycardia; HFrEF (heart failure with reduced ejection fraction) (HCC); Peripheral vascular disease (HCC); Coronary artery disease involving [place] coronary artery of [place] heart with angina pectoris (HCC); Abnormal EKG Start: 07-16-2023 End: 07-16-2023 Subsequent hospital visit by physician [facility] Comment on above: 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) [L97.519] Start: 07-16-2023 End: 07-16-2023 Patient encounter procedure Dylan [facility] Comment on above: Non-pressure chronic ulcer [...] neurogenic claudication request for chart no giselle ([facility] ) Start: 06-29-2023 End: 06-29-2023 Patient encounter procedure Elizabeth Ball PIANO MECHANIC Work Phone: [facility] Comment on above: PVD (peripheral vasc ular disease) (HCC) (Primary Dx); Aortoiliac occlusive disease (HCC); Open wound of fourth toe of right foot, initial encounter; Open wound of lesser toe of right foot; Atherosclerosis of aorta (HCC); Diminished pulses in lower extremity Start: 06-29-2023 ambulatory Paulina astudillo MD Work Phone: [facility] Comment on above: Insulin Readings Start: 06-28-2023 Refill Paulina astudillo MD Work Phone: [facility] Comment on above: Refill Request Start: 06-09-2023 End: 06-09-2023 Patient encounter procedure Davin August PA-C Work Phone: [facility] Comment on above: Acute right-sided lo w back pain with right-sided sciatica (Primary Dx); Spinal stenosis of lumbar region with neurogenic claudication Start: 06-01-2023 End: 06-01-2023 ambulatory [facility] Comment on above: Difficulty walking ( Primary Dx); Weakness of both lower extremities Start: 05-27-2023 ambulatory Paulina astudillo MD Work Phone: [facility] Comment on above: My blood sugar Start: 05-26-2023 End: 05-26-2023 Subsequent hospital visit by physician Roseline Pearson MD Work Phone: [facility] Comment on above: Positive FIT (fecal immunochemical test) [R19.5] Start: 05-24-2023 Telephone encounter Anne guzman MD Work Phone: [facility] Comment on above: Appointment (6 Month with testing) Start: 05-11-2023 End: 05-11-2023 ambulatory Kath Reusch PT Work Phone: [facility] Comment on above: Difficulty walking ( Primary Dx); Weakness of both lower extremities Start: 05-10-2023 ambulatory Paulina astudillo MD Work Phone: [facility] Comment on above: Insulin 05/09/2023 Start: 05-06-2023 End: 05-06-2023 ambulatory Kath Reusch PT Work Phone: [facility] Comment on above: Difficulty walking ( Primary Dx); Weakness of both lower extremities Start: 04-30-2023 Refill Elizabethlibertad caceres 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PIANO MECHANIC Work Phone: [facility] Comment on above: Refill Request Start: 04-28-2023 ambulatory Paulina astudillo MD Work Phone: [facility] Comment on above: Insulin Start: 04-22-2023 End: 04-22-2023 Patient encounter procedure Paulina Severino MD Work Phone: [facility] Comment on above: Type 2 diabetes demetris itus with diabetic peripheral angiopathy without gangrene, with long-term current use of insulin (HCC) (Primary Dx); Other age-related incipient cataract of right eye; Encounter for immunization; Depressive disorder Start: 04-21-2023 Refill Elizabeth caceres 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PIANO MECHANIC Work Phone: [facility] Comment on above: Refill Request Start: 04-17-2023 End: 04-17-2023 ambulatory Kath Reusch PT Work Phone: [facility] Comment on above: Difficulty walking ( Primary Dx); Weakness of both lower extremities Start: 04-01-2023 End: 04-01-2023 ambulatory Kath Reusch PT Work Phone: [facility] Comment on above: Difficulty walking ( Primary Dx); Weakness of both lower extremities Start: 03-22-2023 End: 03-22-2023 ambulatory Sandra Alba [facility] Comment on above: Difficulty walking ( Primary Dx); Weakness of both lower extremities Start: 03-15-2023 End: 03-15-2023 ambulatory [facility] Comment on above: Difficulty walking ( Primary Dx); Weakness of both lower extremities Start: 03-09-2023 End: 03-09-2023 ambulatory [facility] PT Work Phone: [facility] Comment on above: Difficulty walking ( Primary Dx); Weakness of both lower extremities Start: 03-04-2023 End: 03-04-2023 [facility] Work Phone: [facility] Comment on above: Difficulty walking ( Primary Dx); Weakness of both lower extremities Start: 02-24-2023 End: 02-24-2023 Patient encounter procedure Paulina Severino MD Work Phone: [facility] Comment on above: Type 2 diabetes demetris itus with diabetic peripheral angiopathy without gangrene, with long-term current use of insulin ([facility]) (Primary Dx); S/P AKA (above knee amputation) unilateral, left ([facility]); HFrEF (heart failure with reduced ejection fraction) ([facility]); Sciatic nerve pain, unspecified laterality; Peripheral vascular disease (HCC); Coronary artery disease involving [place] coronary artery of [place] heart with angina pectoris ([facility]) Start: 02-22-2023 Telephone encounter Paulina Severino MD Work Phone: [facility] Comment on above: request for outside records ([facility]) Start: 02-22-2023 End: 02-22-2023 ambulatory [facility] Comment on above: Difficulty walking ( Primary Dx); Weakness of both lower extremities Start: 02-16-2023 End: 02-16-2023 ambulatory [facility] Comment on above: Difficulty walking ( Primary Dx); Weakness of both lower extremities Start: 02-01-2023 Telephone encounter Paulina Severino MD Work Phone: [facility] Comment on above: Received Outside [facility] Records (Home visit clinical summary, [facility] 01/29/23) Start: 01-28-2023 End: 01-28-2023 ambulatory Kath Reusch PT Work Phone: [facility] Comment on above: Difficulty walking ( Primary Dx); Weakness of both lower extremities Start: 01-26-2023 Telephone encounter Jessica Corderokorey W[facility] Comment on above: Orders Start: 01-25-2023 End: 01-25-2023 Patient encounter procedure Jessica Jorge [facility] Comment on above: Positive FIT (fecal immunochemical test) (Primary Dx); Malnutrition of mild degree (HCC) Start: 01-20-2023 End: 01-20-2023 ambulatory Kath Reusch PT Work Phone: [facility] Comment on above: Difficulty walking ( Primary Dx); Weakness of both lower extremities Start: 01-07-2023 End: 01-07-2023 ambulatory Kath Reusc PT Work Phone: [facility] Comment on above: Difficulty walking ( Primary Dx); Weakness of both lower extremities Start: 12-31-2022 End: 12-31-2022 [facility]ulatory [facility] Work Phone: [facility] Comment on above: Difficulty walking ( Primary Dx); Weakness of both lower extremities Start: 12-30-2022 ambulatory Ronna Leger RN [facility] Comment on above: TIERA JUAN RN ( Medication Adherence review per request of payer) Start: 12-30-2022 End: 12-30-2022 Subsequent hospital visit by physician [facility] Comment on above: Arrived Start: 12-15-2022 End: 12-15-2022 Patient encounter procedure Anne Villalpando MD Work Phone: [facility] Comment on above: PVD (peripheral vasc ular disease) (HCC) (Primary Dx) Start: 12-14-2022 End: 12-14-2022 ambulatory Eva Awad [employer] Work Phone: [facility] Comment on above: Difficulty walking ( Primary Dx); Weakness of both lower extremities Start: 12-08-2022 End: 12-08-2022 ambulatory Kath Reusch PT Work Phone: [facility] Comment on above: Difficulty walking ( Primary Dx); Weakness of both lower extremities Start: 12-07-2022 E-mail encounter fro m caregiver Paulina Severino MD Work Phone: [facility] Start: 12-07-2022 Patient encounter procedure Paulina Severino MD Work Phone: [facility] Comment on above: GI Consult Start: 12-07-2022 Telephone encounter Paulina Severino MD Work Phone: [facility] Comment on above: Results Start: 12-03-2022 End: 12-03-2022 ambulatory Kath Reusch PT Work Phone: [facility] Comment on above: Difficulty walking ( Primary Dx); Weakness of both lower extremities Start: 12-01-2022 End: 12-01-2022 ambulatory Kath Reusch PT Work Phone: [facility] Comment on above: Difficulty walking ( Primary Dx); Weakness of both lower extremities Start: 11-24-2022 End: 11-24-2022 ambulatory [facility] Comment on above: Difficulty walking ( Primary Dx); Weakness of both lower extremities Start: 11-19-2022 End: 11-19-2022 ambulatory Eva Awad [employer] Work Phone: [facility] Comment on above: Difficulty walking ( Primary Dx); Weakness of both lower extremities Start: 11-17-2022 End: 11-17-2022 ambulatory [facility] Comment on above: Difficulty walking ( Primary Dx); Weakness of both lower extremities Start: 11-12-2022 End: 11-12-2022 ambulatory Evabib Awad [employer] HEL[employer] Work Phone: [facility] Comment on above: Difficulty walking ( Primary Dx); Weakness of both lower extremities Start: 11-12-2022 Patient encounter procedure Paulina Severino MD Work Phone: [facility] Comment on above: Missed appointment Start: 11-10-2022 End: 11-10-2022 ambulatory Eva Awad [employer] HELPER Work Phone: [facility] Comment on above: Difficulty walking ( Primary Dx); Weakness of both lower extremities Start: 11-10-2022 Refill Paulina astudillo MD Work Phone: [facility] Comment on above: Refill Request Start: 11-05-2022 End: 11-05-2022 ambulatory Kath Reusch PT Work Phone: [facility] Comment on above: Difficulty walking ( Primary Dx); Weakness of both lower extremities Start: 11-03-2022 End: 11-03-2022 ambulatory Kath Reusch PT Work Phone: [facility] Comment on above: Difficulty walking; Weakness of both lower extremities ACM DRAKE RN ( Medication Adherence review at request of payer.) Start: 10-29-2022 Telephone encounter Paulina Severino MD Work Phone: [facility] Comment on above: Received Outside Med ical Records ([facility] Home visit 10/29/2022) Start: 10-23-2022 Orders Only Elizabeth caceres 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PIANO MECHANIC Work Phone: [facility] Comment on above: S/P AKA (above knee amputation), left (HCC) (Primary Dx) Referral Information Start: 09-17-2022 Telephone encounter Paulina Severino MD Work Phone: [facility] Comment on above: Received Outside Med ical Records ([facility] provider) Start: 09-16-2022 ambulatory Elizabeth caceres 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PIANO MECHANIC Work Phone: [facility] Comment on above: My leg records I'm sorry that I sen t 2 messages Start: 09-09-2022 End: 09-09-2022 Subsequent hospital visit by physician Card Lab Nuclear [facility] Comment on above: No Show Start: 09-08-2022 Telephone encounter Davin temple MD Work Phone: [facility] Comment on above: Beta Tester - O ther Start: 08-24-2022 End: 08-24-2022 Subsequent hospital visit by physician [place] 2 [facility] Comment on above: Bilateral carotid ar jules stenosis [I65.23] Start: 08-06-2022 End: 08-06-2022 Patient encounter procedure Paulina Severino MD Work Phone: [facility] Comment on above: Type 2 diabetes demetris itus with diabetic peripheral angiopathy without gangrene, with long-term current use of insulin (HCC) (Primary Dx); Primary hypertension; Mixed hyperlipidemia; Anemia, unspecified type Start: 08-03-2022 Telephone encounter Paulina Severino MD Work Phone: [facility] Comment on above: Received Outside Med ical Records ([facility] for additional documentation for need of CGM 08/03/2022) Start: 07-23-2022 ambulatory Paulina astudillo MD Work Phone: [facility] Comment on above: Freestyle cl 2 Start: 07-22-2022 Telephone encounter Paulina Severino MD Work Phone: [facility] Comment on above: Orders ([facility]) Start: 07-21-2022 ambulatory Landen poole MD Work Phone: Endocrinology Comment on above: Paperwork for you Start: 07-10-2022 End: 07-10-2022 Patient encounter procedure Paulina Severino MD Work Phone: [facility] Comment on above: Type 2 diabetes demetris itus with diabetic peripheral angiopathy without gangrene, with long-term current use of insulin (HCC) (Primary Dx); Encounter for immunization; Painful diabetic neuropathy (HCC); S/P AKA (above knee amputation) unilateral, left (HCC) Start: 07-09-2022 Telephone encounter Paulina Severino MD Work Phone: [facility] Comment on above: Orders ([facility]) Start: 06-30-2022 ambulatory Elizabeth odonnell RN Work Phone: [employer] Comment on above: ACM DRAKE RN ( Medication adherence review per [facility]) Start: 06-24-2022 ambulatory Paulina astudillo MD Work Phone: Internal Medicine [facility] [place] Start: 06-24-2022 Telephone encounter Paulina Severino MD Work Phone: [facility] Comment on above: Orders ([facility] (06/23/22)) Start: 06-23-2022 Telephone encounter Paulina Severino MD Work Phone: [facility] Comment on above: Orders ([facility] (06/23/22)) Start: 06-22-2022 Telephone encounter Paulina Severino MD Work Phone: [facility] Comment on above: Orders ([facility]) Start: 06-19-2022 Refill Paulina astudlilo MD Work Phone: [facility] Comment on above: Refill Request Start: 06-17-2022 Telephone encounter Paulina Severino MD Work Phone: [facility] Comment on above: Orders ([facility]) Start: 06-17-2022 End: 06-17-2022 Patient encounter procedure Elizabeth Quinn WILEY.PIANO MECHANIC Work Phone: [facility] Comment on above: S/P AKA (above knee amputation), left (HCC) (Primary Dx); S/P vascular bypass; PVD (peripheral vascular disease) (HCC); Aortoiliac occlusive disease (HCC) Start: 06-15-2022 Telephone encounter Paulina Severino MD Work Phone: [facility] Comment on above: Orders ([facility]) Start: 06-12-2022 Nurse Triage Paulina astudillo MD Work Phone: [facility] Comment on above: Orders Start: 06-09-2022 Telephone encounter Paulina Severino MD Work Phone: [facility] Comment on above: Sign for home care o rders Start: 06-07-2022 ambulatory Paulina astudillo MD Work Phone: [facility] Comment on above: My oxy prescription Start: 06-04-2022 ambulatory Bee Sarmiento [facility] Start: 06-02-2022 Telephone encounter Paulina Severino MD Work Phone: [facility] Comment on above: Received Outside Med ical Records ([facility] blood sugar results) Start: 05-28-2022 Telephone encounter Paulina Severino MD Work Phone: [facility] Comment on above: Outside Labs Results ([facility]) Start: 05-26-2022 ambulatory Bee [facility] Start: 05-22-2022 Telephone encounter Selma Juancarlos bonilla APRN.CNP Work Phone: [facility] Comment on above: Appointment Start: 05-21-2022 Telephone encounter Paulina Severino MD Work Phone: [facility] Comment on above: Orders Start: 05-20-2022 Telephone encounter Ashley hightower PA-C Work Phone: [facility] Comment on above: Follow Up Start: 05-15-2022 ambulatory Soraya obrien Work Phone: Pulmonary Medicine Start: 04-28-2022 Telephone encounter Anne guzman MD Work Phone: [facility] Comment on above: Schedule Surgery Start: 04-23-2022 End: 04-23-2022 Subsequent hospital visit by physician [facility] (I-Stat) RADIO CT SCAN [facility] [...] Kirkpatrick MD Work Phone: [facility] Comment on above: Pain and sleep Start: [...] Kirkpatrick MD Work Phone: [facility] Comment on above: Future Appointment ( FUTURE EMG ) Start: 04-14-2022 End: 04-14-2022 Patient encounter procedure Malgorzata Kirkpatrick MD Work Phone: [facility] Comment on above: Spinal stenosis, lum bar region, without neurogenic claudication (Primary Dx); Disturbance of skin sensation; Radiculopathy, lumbosacral region; Other chronic pain; Spinal stenosis of lumbar region with neurogenic claudication Start: 04-14-2022 Telephone encounter Malgorzata Kirkpatrick MD Work Phone: [facility] Comment on above: MRI Appointment Start: 03-31-2022 ambulatory Paulina astudillo MD Work Phone: [facility] Comment on above: Tramadol Start: 03-30-2022 End: 03-30-2022 Patient encounter procedure Landen Milner PA-C Work Phone: [facility] Comment on above: Acute midline low ba ck pain, unspecified whether sciatica present (Primary Dx) Start: 03-27-2022 End: 03-27-2022 Patient encounter procedure Paulina Severino MD Work Phone: [facility] Comment on above: Acute right-sided lo w back pain with right-sided sciatica (Primary Dx) Start: 03-25-2022 Refill Paulina astudillo MD Work Phone: [facility] Comment on above: Refill Request Start: 03-24-2022 Telephone encounter Landen Clement MD Work Phone: Endocrinology Comment on above: Blood Sugar Reading Start: 03-23-2022 ambulatory Paulina astudillo MD Work Phone: [facility] Comment on above: Tramadol Prednisone Start: 03-13-2022 ambulatory Davin BUTLERC Work Phone: [facility] Comment on above: My sciatic nerve Start: 03-13-2022 End: 03-13-2022 Patient encounter procedure Paulina Severino MD Work Phone: [facility] Comment on above: DDD (degenerative di sc disease), lumbar (Primary Dx); Right sided sciatica; Lumbar foraminal stenosis; Type 2 diabetes mellitus with diabetic neuropathy, with long-term current use of insulin (HCC); Hospital discharge follow-up; Chronic anticoagulation Start: 03-06-2022 End: 03-06-2022 Subsequent hospital visit by physician Adali Pichardo MD Work Phone: [facility] Comment on above: Spinal stenosis, uns pecified spinal region [M48.00] Start: 03-03-2022 Patient Outreach Dereck Butleru latory Care Management Comment on above: Transition Of Care ( [facility] discharge 03-02-22- initial outreach ) Start: 02-20-2022 Telephone encounter Davin heath PA-C Work Phone: [facility] Comment on above: Pain; Patient Update (phone number change to call him back); Orders (MRI) Start: 02-13-2022 End: 02-13-2022 ambulatory Thierry Stokes [facility] Comment on above: Acute right-sided lo w back pain with right-sided sciatica (Primary Dx) Start: 02-05-2022 End: 02-05-2022 ambulatory Sandra Alba [facility] Comment on above: Acute right-sided lo w back pain with right-sided sciatica (Primary Dx) Start: 01-28-2022 End: 01-28-2022 ambulatory Ronna Shorty STONE DRILLER HELPER Work Phone: [facility] Comment on above: Acute right-sided lo w back pain with right-sided sciatica (Primary Dx) Start: 01-20-2022 End: 01-20-2022 ambulatory Loan Hennessy PT, DPT Work Phone: [facility] Comment on above: Acute right-sided lo w back pain with right-sided sciatica (Primary Dx) Start: 01-19-2022 Telephone encounter Paulina Severino MD Work Phone: [facility] Comment on above: Patient Question Start: 01-16-2022 End: 01-16-2022 ambulatory Soham Blancas PT, DPT Work Phone: [facility] Comment on above: Acute right-sided lo w back pain with right-sided sciatica Start: 01-01-2022 End: 01-01-2022 Patient encounter procedure Davin August PA-C Work Phone: [facility] Comment on above: Acute right-sided lo w back pain with right-sided sciatica Start: 12-30-2021 End: 12-30-2021 Patient encounter procedure Brigitte Dias APRN.PIANO MECHANIC Work Phone: Endocrinology Comment on above: Type [...] encounter procedure Paulina Severino MD Work Phone: [facility] Comment on above: Hypertension (Primar y Dx); Type 2 diabetes mellitus with diabetic neuropathy, with long-term current use of insulin (HCC); Painful diabetic neuropathy (HCC); Acute right-sided low back pain with right-sided sciatica; Bacterial sinusitis Procedures Date Procedure Procedure Detail Performing Clinician Start: 04-18-2025 Antibody screen LYUBOV SANCHEZ Comment on above: Order Comment: Speci men Type: BLOOD SPECIMENOrdering Facility: [facility] Address: [address] [place] [address] Performed By: #### T SCR ####[facility] BLOOD BANKCLIA [id number] [address] Start: 04-11-2025 Antibody screen LYUBOV SANCHEZ Comment on above: Order Comment: Speci men Type: BLOOD SPECIMENOrdering Facility: [facility] Address: [address] [place] [address] Performed By: #### T SCR ####[facility] BLOOD BANKCLIA [id number] [address] Start: 04-07-2025 Electrocardiogram LYUBOV MARY Start: 03-05-2025 Hemoglobin A1c/Hemoglobin.total in Blood 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: Start: 02-23-2025 Electrocardiogram LYUBOV HERNANDEZ Start: 10-19-2024 Echocardiography KRISTYN SEVERINO Start: 10-18-2024 Antibody screen PAULINA SEVERINO Comment on above: Order Comment: Speci men Type: BLOOD SPECIMENOrdering Facility: [facility] Address: [address] [place] [address] Performed By: #### T SCR ####[facility] BLOOD BANKCLIA [id number] [address] Start: 07-19-2024 Echo tthrc r-t 2d w/wom-mode compl spec&colr d Eduin Coleman 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PIANO MECHANIC Work Phone: Start: 07-19-2024 Echocardiography LYUBOV MARY Start: 06-27-2024 PFIZER-BIONTECH COVI D-19 VACCINE AGE 12+ YR (COMIRNATY) Lyubovcatherine Hernandez 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PIANO MECHANIC Work Phone: Start: 06-27-2024 Hemoglobin A1c/Hemoglobin.total in Blood Lyubov Mary 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PIANO MECHANIC Work Phone: Start: 03-27-2024 Hemoglobin A1c/Hemoglobin.total in Blood Lyubov Sweetins 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PIANO MECHANIC Work Phone: Start: 07-19-2023 INFLUENZA VACCINE, P RSV FREE, AGE 65+ YR, HIGH DOSE, QUADRIVALENT (FLUZONE HIGH-DOSE) Paulina Severino MD Work Phone: Start: 07-19-2023 PFIZER-BIONTECH COVI D-19 VACCINE ( SEASON) AGE 12+ YR Paulina Severino MD Work Phone: Start: 05-26-2023 Gluc bld gluc mntr d ev cleared fda spec home use Loan Good 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CREDIT RATING INSPECTOR Start: 05-26-2023 Colonoscopy flx dx w /collj [...] Paulina Severino MD Work Phone: Start: 07-10-2022 PFIZER-BIONTAdexLink COVI D-19 BIVALENT BOOSTER VACCINE, AGE 12+ [...] 12-30-2021 Hemoglobin A1c/Hemoglobin.total in Blood Brigitte Dias 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PIANO MECHANIC Work Phone: Start: 07-04-2021 Colonoscopy Jessica Patel PA-C Work Phone: History of carotid endarterectomy History of bilateral carotid endarterectomy Us 2 History of carotid endarterectomy History of bilateral carotid endarterectomy Elizabeth Ball 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PIANO MECHANIC Work Phone: History of carotid endarterectomy History of bilateral carotid endarterectomy Elizabeth Ball 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PIANO MECHANIC Work Phone: History of placement of stent for coronary artery disease S/P coronary artery stent placement Davin Moran MD Work Phone: History of placement of stent for coronary artery disease S/P coronary artery stent placement Davin Moran MD Work Phone: Plan of Treatment Date Care Activity Detail Author Start: 05-26-2028 Screening for malignant neoplasm of colon [facility] Start: 05-02-2026 Creatinine measurement Serum Creatinine [facility] Start: 03-29-2026 Creatinine measurement Serum Creatinine [facility] Start: 03-29-2026 Hepatitis B surface antibody level LDL Cholesterol [facility] Start: 03-05-2026 Annual PCP Team Chronic Disease Visit Annual PCP Team Chronic Disease Visit [facility] Start: 02-26-2026 Creatinine measurement Serum Creatinine [facility] Start: 01-29-2026 Annual PCP Team Chronic Disease Visit Annual PCP Team Chronic Disease Visit [facility] Start: 11-14-2025 Creatinine measurement Serum Creatinine [facility] Start: 11-08-2025 Annual PCP Team Chronic Disease Visit Annual PCP Team Chronic Disease Visit [facility] Start: 11-04-2025 Complete blood count Hemoglobin/Hematocrit [facility] Start: 11-04-2025 Creatinine measurement Serum Creatinine [facility] Start: 10-26-2025 End: 11-23-2025 Echocardiography [facility] Routine Coronary artery disease involving [place] coronary artery of [place] heart without angina pectoris S/P coronary artery stent placement Expected: 10/26/2025 (Approximate), Expires: 11/23/2025 [facility] Work Phone: Comment on above: Expected: 10/26/2025 (Approximate), Expi res: 11/23/2025 Start: 10-18-2025 Hepatitis B surface antibody level LDL Cholesterol [facility] Start: 10-09-2025 Annual PCP Team Chronic Disease Visit Annual PCP Team Chronic Disease Visit [facility] Start: 10-06-2025 Creatinine measurement Serum Creatinine [facility] Start: 10-04-2025 Hepatitis B screening Urine Albumin:Creatinine Ratio [facility] Start: 09-29-2025 Hemoglobin A1c measurement HbA1C [facility] Start: 09-04-2025 Hemoglobin A1c measurement HbA1C [facility] Start: 09-04-2025 End: 09-04-2025 Patient encounter procedure 09/04/2025 11:00 AM EST [facility] [address] [place] [address] Eduin Coleman, 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PIANO MECHANIC [address] [place] [address] 6MO hfRef SRS [facility] Comment on above: 6MO hfRef SRS Start: 08-22-2025 Annual PCP Team Chronic Disease Visit Annual PCP Team Chronic Disease Visit [facility] Start: 07-25-2025 Annual PCP Team Chronic Disease Visit Annual PCP Team Chronic Disease Visit [facility] Start: 07-25-2025 BP Controlled (<130/80) BP Controlled (<130/80) [facility] inic Start: 07-12-2025 BP Controlled (<130/80) BP Controlled (<130/80) [facility] Start: 06-27-2025 Annual PCP Team Chronic Disease Visit Annual PCP Team Chronic Disease Visit [facility] Start: 06-27-2025 BP Controlled (<130/80) BP Controlled (<130/80) [facility] in Start: 06-27-2025 Urine microalbumin profile DTaP,Tdap,Td Vaccine (1 - Tdap) [facility] Comment on above: Postponed from 12/26/1970 (Declined at t his time) Start: 06-26-2025 End: 06-26-2025 Patient encounter procedure 06/26/2025 10:45 AM EDT Office Visit Plastic Surgery [address] [place] [phone] Thierry Rush MD [address] [place] [address] post op r/s from Plastic Surgery Comment on above: post op r/s from Start: 05-22-2025 End: 05-22-2025 Patient encounter procedure 05/22/2025 2:45 PM EDT Office Visit Plastic Surgery [address] [place] [phone] Thierry Rush MD [address] [place] [address] Post Op -3 cc Plastic Surgery Comment on above: Post Op -3 cc Start: 05-21-2025 Influenza vaccination Influenza Vaccine (#1) [facility] Start: 05-18-2025 End: 05-18-2025 Patient encounter procedure 05/18/2025 1:30 PM EDT Office Visit Plastic Surgery [address] [place] [phone] Loan Kent PALuly [address] [place], [place] [id number] Post Op -3 cc Plastic Surgery Comment on above: Post Op -3 cc Start: 05-16-2025 End: 05-16-2025 Patient encounter procedure 05/16/2025 1:00 PM EDT Office Visit [facility] [address] [place] [address] Elda Chowdhury APRN.PIANO MECHANIC [address] [place] [address] Void Trial, facility to remove cath in AM [facility] Comment on above: Void Trial, facility to remove cath in A M Start: 04-27-2025 End: 04-27-2025 Patient encounter procedure 04/27/2025 2:00 PM EDT Office Visit Plastic Surgery [address] [phone] Loan Kent PADonitaC [address] [id number] Post Op - 2 cc Plastic Surgery Comment on above: Post Op - 2 cc Start: 04-17-2025 Hepatitis B screening Urine Albumin:Creatinine Ratio [facility] Start: 04-17-2025 Hepatitis B surface antibody level LDL Cholesterol [facility] Start: 04-13-2025 End: 04-13-2025 Patient encounter procedure Plastic Surgery Comment on above: Post Op -1 cc Start: 04-05-2025 End: 04-05-2025 Adjt tis trnsfr/reargmt defec ea addl 30 sqcm [facility] Start: 04-05-2025 End: 04-05-2025 Admission to same day surgery center 04/05/2025 8:00 AM EDT - 04/05/2025 12:45 PM EDT Surgery [address] [address] Thierry Rush MD [address] [facility] [address] [place] [address] ADJACENT TISSUE TRANSFER / REARRANGEMENT LOWER EXTREMITY ADD'L < OR =30 SQCM SQCM [facility] Comment on above: ADJACENT TISSUE TRANSFER / REARRANGEMENT LOWER EXTREMITY ADD'L < OR =30 SQCM SQCM Start: 04-05-2025 End: 04-05-2025 Anesthesia consultation 04/05/2025 8:00 AM EDT Anesthesia Event [address] [address] Brissa Cruz MD [address] [place] [address] [facility] Start: 04-05-2025 End: 04-05-2025 Implantation nerve end bone/muscle [facility] Start: 04-05-2025 Subsequent hospital visit by physician 04/05/2025 8:00 AM EDT Hospital Encounter [address] [address] Thierry Rush MD [address] [facility] [address] [place] [address] Neuropathic pain [M79.2] [facility] Comment on above: Neuropathic pain [M79.2] Start: 04-01-2025 Hemoglobin A1c measurement HbA1C [facility] Start: 03-29-2025 End: 03-29-2025 ambulatory Pre Surgical Testing Comment on above: ADJACENT TISSUE TRANSFER / REARRANGEMENT LOWER EXTREMITY ADD'L < OR =30 SQCM SQCM Start: 03-27-2025 Annual PCP Team Chronic Disease Visit Annual PCP Team Chronic Disease Visit [facility] Start: 03-20-2025 End: 06-19-2025 CBC panel - Blood by Automated count COMPLETE BLOOD COUNT Lab Routine Anemia, unspecified type Expected: 03/20/2025, Expires: 06/19/2025 [facility] Comment on above: Expected: 03/20/2025, Expires: Start: 03-20-2025 End: 06-19-2025 Comprehensive metabolic 2000 panel - Serum or Plasma COMPREHENSIVE METABOLIC PANEL Lab Routine Type 2 diabetes mellitus with diabetic peripheral angiopathy without gangrene, with long-term current use of insulin (HCC) Primary hypertension Expected: 03/20/2025, Expires: 06/19/2025 [facility] Comment on above: Expected: 03/20/2025, Expires: Start: 03-20-2025 End: 06-19-2025 Hemoglobin A1c in Blood HEMOGLOBIN A1C Lab Routine Type 2 diabetes mellitus with diabetic peripheral angiopathy without gangrene, with long-term current use of insulin (HCC) Expected: 03/20/2025, Expires: 06/19/2025 [facility] Comment on above: Expected: 03/20/2025, Expires: Start: 03-20-2025 End: 06-19-2025 Lipid 1996 panel - Serum or Plasma LIPID PANEL, FASTING Lab Routine Coronary arteriosclerosis Mixed hyperlipidemia Expected: 03/20/2025, Expires: 06/19/2025 [facility] Work Phone: Comment on above: Expected: 03/20/2025, Expires: Start: 03-20-2025 End: 03-20-2025 Patient encounter procedure 03/20/2025 11:00 AM EDT Office Visit Plastic Surgery [address] [phone] Thierry Rush MD [address] [facility] [address] [place] [address] Pre Op (sx date 04/05) cc Plastic Surgery Comment on above: Pre Op (sx date 04/05) cc Start: 03-05-2025 End: 03-05-2025 Patient encounter procedure 03/05/2025 1:20 PM EDT Office Visit Family Practice [address] [place], [place] [phone] Lyubov Hernandez APRN.PIANO MECHANIC [address] [address] Hospital follow up [facility] Comment on above: Hospital follow up Start: 02-28-2025 End: 02-28-2025 Patient encounter procedure Hern[facility] Comment on above: 3 month follow up 3 month follow up jt Start: 02-27-2025 End: 02-27-2025 Patient encounter procedure 02/27/2025 1:30 PM EDT Office Visit [facility] [address] [place] [address] Eduin Coleman APRN.PIANO MECHANIC [address] [place] [address] 3 month follow up [facility] Comment on above: 3 month follow up Start: 01-29-2025 End: 01-29-2025 Patient encounter procedure 01/29/2025 10:00 AM EDT Office Visit Family [address] [place], [place] [phone] Paulina Severino MD [address] [place] [address] [place] [address] three month follow up [facility] Comment on above: three month follow up Start: 01-15-2025 End: 01-15-2025 Patient encounter procedure 01/15/2025 1:00 PM EDT Office Visit [facility] [address] [place] [address] Davin Moran MD [address] [address] 6 month follow up [facility] Comment on above: 6 month follow up Start: 2024 End: 2024 Patient encounter procedure 2024 10:40 AM EDT Office Visit [facility] Medicine [address] [place] [address] [place] [address] [place] [address] [facility] Comment on above: CKD Start: 12-26-2024 Covid-19 Vaccine () Covid-19 Vaccine () [facility] Start: 12-07-2024 End: 12-07-2024 Adjt tis trnsfr/reargmt defec ea addl 30 sqcm ADJACENT TISSUE TRANSFER / REARRANGEMENT LOWER EXTREMITY ADD'L < OR =30 SQCM SQCM Neuropathic pain 12/07/2024 8:00 AM EDT [facility] Start: 12-07-2024 End: 12-07-2024 Admission to same day surgery center 12/07/2024 8:00 AM EDT - 12/07/2024 12:45 PM EDT Surgery [place] [facility] [address] [facility] [place] [address] Thierry Rush MD [address] [facility] [address] [place] [address] ADJACENT TISSUE TRANSFER / REARRANGEMENT LOWER EXTREMITY [...] EDT Hospital Encounter [place] [facility] [place] [address] Thierry Rush MD [address] [facility] [address] [place] [address] Neuropathic pain [M79.2] [facility] Comment on above: Neuropathic pain [M79.2] Start: 12-01-2024 End: 12-01-2024 ambulatory 12/01/2024 11:20 AM EDT PAT Pre Surgical Testing [facility] [place] [address] 1. ADJACENT TISSUE TRANSFER / REARRANGEMENT LOWER EXTREMITY ADD'L < OR =30 SQCM SQCM Pre Surgical Testing Comment on above: 1. ADJACENT TISSUE TRANSFER / REARRANGEM ENT LOWER EXTREMITY ADD'L < OR =30 SQCM SQCM Start: 11-23-2024 End: 11-23-2024 Patient encounter procedure [facility] Liz Edmond Coinjock Comment on above: 6 month follow up f/u per vy Miles. vascular surg assessment EKG done 10/30/24 jt Start: 11-08-2024 End: 11-08-2024 Patient encounter procedure 11/08/2024 2:40 PM EST Office Visit Family Practice [address] [address] Lyubov Hernandez, 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PIANO MECHANIC [address] [place], [place] [phone] hospital follow up [facility] Comment on above: hospital follow up Start: 10-20-2024 Annual PCP Team Chronic Disease Visit Annual PCP Team Chronic Disease Visit [facility] Start: 10-16-2024 End: 01-15-2025 Basic metabolic 2000 panel - Serum or Plasma BASIC METABOLIC PANEL Lab Routine Hyperkalemia Expected: 10/16/2024, Expires: 01/15/2025 [facility] Work Phone: Comment on above: Expected: 10/16/2024, Expires: Start: 10-16-2024 End: 10-16-2024 Results Only 10/16/2024 11:00 AM EST Results Only [facility] [address] [place] [address] 1 order [facility] Comment on above: 1 order Start: 09-27-2024 Hemoglobin A1c measurement HbA1C [facility] Start: 09-20-2024 Advance Directive Discussion Advance Directive Discussion [facility] Start: 09-20-2024 End: 10-20-2024 CBC panel - Blood by Automated count COMPLETE BLOOD COUNT Lab Routine Type 2 diabetes mellitus with diabetic neuropathy, with long-term current use of insulin (HCC) Expected: 09/20/2024, Expires: 10/20/2024 [facility] Comment on above: Expected: 09/20/2024, Expires: Start: 09-20-2024 End: 10-20-2024 Comprehensive metabolic 2000 panel - Serum or Plasma COMPREHENSIVE METABOLIC PANEL Lab Routine Type 2 diabetes mellitus with diabetic neuropathy, with long-term current use of insulin (HCC) Expected: 09/20/2024, Expires: 10/20/2024 [facility] Comment on above: Expected: 09/20/2024, Expires: 5 Start: 09-20-2024 End: 10-20-2024 Hemoglobin A1c in Blood HEMOGLOBIN A1C Lab Routine Type 2 diabetes mellitus with diabetic neuropathy, with long-term current use of insulin (HCC) Expected: 09/20/2024, Expires: 10/20/2024 [facility] Work Phone: Comment on above: Expected: 09/20/2024, Expires: 5 Start: 09-20-2024 Medicare Advantage Annual Wellness Visit Medicare [facility] Annual Wellness Visit [facility] Start: 08-22-2024 End: 08-22-2024 Patient encounter procedure 08/22/2024 11:00 AM EST Office Visit Family Practice [address] [place], [place] [id number] Lyubov Hernandez, 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PIANO MECHANIC [address] [place] [phone] wellness exam Family Practice Comment on above: wellness exam Start: 08-20-2024 Subsequent hospital visit by physician 08/20/2024 Hospital Encounter [facility] [place] [address] Thierry Rush MD [address] [place], [place] [phone] Neuropathic pain [M79.2] [facility] Comment on above: Neuropathic pain [M79.2] Start: 07-28-2024 BP Controlled (<130/80) BP Controlled (<130/80) [facility] Start: 07-25-2024 End: 07-25-2024 Patient encounter procedure 07/25/2024 1:40 PM EST Office Visit Family Practice [address] [place] [phone] Lyubov Hernandez, 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PIANO MECHANIC [address] [place] [phone] follow up diabetes Family Practice Comment on above: follow up diabetes Start: 07-19-2024 Annual PCP Team Chronic Disease Visit Annual PCP Team Chronic Disease Visit [facility] Start: 07-19-2024 End: 07-19-2024 Patient encounter procedure 07/19/2024 12:00 PM EDT Appointment [facility] [address] [place] [address] HFrEF (heart failure with reduced ejection fraction) ([facility]) [I50.20]; Atherosclerosis of [place] coronary artery of [place] heart without angina pectoris [I25.10]; Mixed hyperlipidemia [E78.2]; PAD (peripheral artery disease) ([facility]) [I73.9]; Essential (primary) hypertension [I10] [facility] Comment on above: HFrEF (heart failure with reduced ejecti on fraction) (HCC) [I50.20]; Atherosclerosis of [place] coronary artery of [place] heart without angina pectoris [I25.10]; Mixed hyperlipidemia [E78.2]; PAD (peripheral artery disease) (HCC) [I73.9]; Essential (primary) hypertension [I10] Start: 07-12-2024 End: 07-12-2024 Patient encounter procedure [facility] Comment on above: Overude 1 year f/u 20 month f/u jt Start: 07-11-2024 End: 07-11-2024 Patient encounter procedure Plastic Surgery Comment on above: maría Birminghamwrcristian Start: 06-27-2024 Hemoglobin A1c measurement HbA1C [facility] Start: 06-27-2024 End: 06-27-2024 Patient encounter procedure [facility] Comment on above: 3m follow up Start: 06-06-2024 End: 06-06-2024 Patient encounter procedure 06/06/2024 1:00 PM EDT Office Visit [facility] [address] [place] [address] Elizabeth Ball, INEZ.PIANO MECHANIC [address] [facility] [address] [place] [phone] 6 Month F/up -Stump Check and carotid US 05/24/24 [facility] Comment on above: 6 Month F/up -Stump Check and carotid US 05/24/24 Start: 05-26-2024 Colonoscopy COLONOSCOPY [facility] Start: 05-26-2024 COLORECTAL CANCER SCREENING COLORECTAL CANCER SCREENING [facility] Start: 05-26-2024 Screening for malignant neoplasm of colon [facility] Start: 05-24-2024 End: 05-24-2024 Patient encounter procedure 05/24/2024 10:15 AM EDT Appointment [facility] [address] [place] [address] Carotid stenosis, asymptomatic, bilateral [I65.23] [facility] Comment on above: Carotid stenosis, asymptomatic, bilatera l [I65.23] Start: 05-21-2024 Covid-19 Vaccine ( season) Covid-19 Vaccine () [facility] Start: 05-21-2024 Covid-19 Vaccine () Covid-19 Vaccine () [facility] Start: 05-21-2024 Influenza vaccination Influenza Vaccine (#1) [facility] Start: 04-26-2024 End: 07-26-2024 Potassium [Moles/volume] in Serum or Plasma POTASSIUM Lab Routine Hyperkalemia Expected: 04/26/2024, Expires: 07/26/2024 [facility] Work Phone: Comment on above: Expected: 04/26/2024, Expires: Start: 04-22-2024 ANNUAL PCP TEAM CHRONIC DISEASE VISIT ANNUAL PCP TEAM CHRONIC DISEASE VISIT [facility] Start: 03-27-2024 End: 06-26-2024 Basic metabolic 2000 panel - Serum or Plasma BASIC METABOLIC PANEL Lab Routine Type 2 diabetes mellitus with diabetic peripheral angiopathy without gangrene, with long-term current use of insulin (HCC) Expected: 03/27/2024, Expires: 06/26/2024 [facility] Comment on above: Expected: 03/27/2024, Expires: Start: 03-27-2024 End: 03-27-2024 Patient encounter procedure Family Practice Comment on above: MEDICARE WELLNESS Start: 03-14-2024 End: 06-13-2024 Hemoglobin A1c in Blood HEMOGLOBIN A1C Lab Routine Type 2 diabetes mellitus (HCC) Expected: 03/14/2024, Expires: 06/13/2024 [facility] Comment on above: Expected: 03/14/2024, Expires: Start: 03-14-2024 End: 06-13-2024 Lipid 1996 panel - Serum or Plasma LIPID PANEL BASIC Lab Routine Hyperlipidemia Expected: 03/14/2024, Expires: 06/13/2024 [facility] Comment on above: Expected: 03/14/2024, Expires: Start: 03-14-2024 End: 06-13-2024 Microalbumin/Creatinine [Mass Ratio] in Urine ALBUMIN/CREATININE RATIO, URINE Lab Routine Type 2 diabetes mellitus (HCC) Expected: 03/14/2024, Expires: 06/13/2024 [facility] Work Phone: Comment on above: Expected: 03/14/2024, Expires: Start: 02-25-2024 ANNUAL PCP TEAM CHRONIC DISEASE VISIT ANNUAL PCP TEAM CHRONIC DISEASE VISIT [facility] Start: 02-25-2024 Hepatitis B surface antibody level LDL CHOLESTEROL [facility] Start: 02-18-2024 Screening for malignant neoplasm of colon Cologuard (FIT-DNA) [facility] Start: 12-24-2023 ANNUAL PCP TEAM CHRONIC DISEASE VISIT ANNUAL PCP TEAM CHRONIC DISEASE VISIT [facility] Start: 12-16-2023 BP CONTROLLED (<130/80) BP CONTROLLED (<130/80) [facility] in Start: 11-29-2023 COLORECTAL CANCER SCREENING COLORECTAL CANCER SCREENING [facility] Start: 11-29-2023 FECAL OCCULT BLOOD FECAL OCCULT BLOOD [facility] Start: 11-29-2023 Screening for malignant neoplasm of colon Fecal Occult Blood [facility] Start: 11-26-2023 Glaucoma screening Dilated Retinal Exam [facility] Start: 11-26-2023 Hepatitis C antibody, confirmatory test DILATED RETINAL EXAM [facility] Start: 11-24-2023 ANNUAL PCP TEAM CHRONIC DISEASE VISIT ANNUAL PCP TEAM CHRONIC DISEASE VISIT [facility] Start: 11-18-2023 Covid-19 Vaccine () Covid-19 Vaccine () [facility] Start: 10-16-2023 Hemoglobin A1c measurement HbA1C [facility] Start: 10-16-2023 Hemoglobin A1c/Hemoglobin.total in Blood HbA1C [facility] Start: 09-20-2023 Advance Directive Discussion Advance Directive Discussion [facility] Start: 09-20-2023 Behavioral Health Screening Behavioral Health Screening [facility] Start: 09-20-2023 Depression Assessment Depression Assessment [facility] Start: 08-06-2023 ANNUAL PCP TEAM CHRONIC DISEASE VISIT ANNUAL PCP TEAM CHRONIC DISEASE VISIT [facility] Start: 08-06-2023 BP CONTROLLED (<130/80) BP CONTROLLED (<130/80) [facility] Start: 08-06-2023 Urine microalbumin profile [facility] Comment on above: Postponed from 12/26/1970 (Declined at t his time) Start: 07-23-2023 Hemoglobin A1c/Hemoglobin.total in Blood HBA1C [facility] Start: 07-21-2023 End: 10-20-2023 Cobalamin (Vitamin B12) [Mass/volume] in Serum or Plasma VITAMIN B12 BLOOD Lab Routine Acute right-sided low back pain with right-sided sciatica Spinal stenosis of lumbar region with neurogenic claudication Expected: 07/21/2023, Expires: 10/20/2023 [facility] Work Phone: Comment on above: Expected: 07/21/2023, Expires: 4 Start: 07-21-2023 End: 10-20-2023 Creatine kinase [Enzymatic activity/volume] in Serum or Plasma CK CREATINE KINASE Lab Routine Acute right-sided low back pain with right-sided sciatica Spinal stenosis of lumbar region with neurogenic claudication Expected: 07/21/2023, Expires: 10/20/2023 [facility] Work Phone: Comment on above: Expected: 07/21/2023, Expires: 4 Start: 07-21-2023 End: 10-20-2023 Magnesium [Mass/volume] in Serum or Plasma MAGNESIUM BLD Lab Routine Acute right-sided low back pain with right-sided sciatica Spinal stenosis of lumbar region with neurogenic claudication Expected: 07/21/2023, Expires: 10/20/2023 [facility] Work Phone: Comment on above: Expected: 07/21/2023, Expires: 4 Start: 07-21-2023 End: 10-20-2023 Methylmalonate [Moles/volume] in Serum or Plasma METHYLMALONIC ACID Lab Routine Acute right-sided low back pain with right-sided sciatica Expected: 07/21/2023, Expires: 10/20/2023 [facility] Work Phone: Comment on above: Expected: 07/21/2023, Expires: Start: 07-21-2023 End: 10-20-2023 Thyrotropin [Units/volume] in Serum or Plasma TSH BLD Lab Routine Acute right-sided low back pain with right-sided sciatica Spinal stenosis of lumbar region with neurogenic claudication Expected: 07/21/2023, Expires: 10/20/2023 [facility] Work Phone: Comment on above: Expected: 07/21/2023, Expires: Start: 07-21-2023 End: 10-20-2023 VITAMIN B1 (THIAMINE), WHOLE BLOOD VITAMIN B1 (THIAMINE), WHOLE BLOOD Lab Routine Acute right-sided low back pain with right-sided sciatica Spinal stenosis of lumbar region with neurogenic claudication Expected: 07/21/2023, Expires: 10/20/2023 [facility] Work Phone: Comment on above: Expected: 07/21/2023, Expires: 4 Start: 07-19-2023 End: 10-18-2023 Basic metabolic 2000 panel - Serum or Plasma BASIC METABOLIC PNL Lab Routine Encounter for immunization Expected: 07/19/2023, Expires: 10/18/2023 [facility] Work Phone: Comment on above: Expected: 07/19/2023, Expires: 4 Start: 07-19-2023 End: 10-18-2023 CBC panel - Blood by Automated count CBC Lab Routine Encounter for immunization Expected: 07/19/2023, Expires: 10/18/2023 [facility] Work Phone: Comment on above: Expected: 07/19/2023, Expires: 4 Start: 07-10-2023 ANNUAL PCP TEAM CHRONIC DISEASE VISIT ANNUAL PCP TEAM CHRONIC DISEASE VISIT [facility] Start: 07-10-2023 BP CONTROLLED (<130/80) BP CONTROLLED (<130/80) [facility] Start: 07-03-2023 Hepatitis B screening URINE ALBUMIN:CREATININE RATIO [facility] Start: 07-03-2023 Hepatitis B surface antibody level LDL CHOLESTEROL [facility] Start: 06-17-2023 Covid-19 Vaccine () Covid-19 Vaccine () [facility] Start: 06-17-2023 End: 01-14-2024 Non-invasive physiologic study extremity 3 levls US ARTERIAL PVR LOWER Radiology Routine PVD (peripheral vascular disease) (HCC) Expected: 06/17/2023 (Approximate), Expires: 01/14/2024 [facility] Work Phone: Comment on above: Expected: 06/17/2023 (Approximate), Expi res: 01/14/2024 Start: 05-27-2023 Hemoglobin A1c/Hemoglobin.total in Blood HBA1C [facility] Start: 05-21-2023 Influenza vaccination [facility] Start: 04-25-2023 Hepatitis B screening URINE ALBUMIN:CREATININE RATIO [facility] Start: 04-20-2023 BP CONTROLLED (<130/80) BP CONTROLLED (<130/80) [facility] Start: 04-14-2023 Adult depression screening assessment DEPRESSION SCREENING [facility] Start: 03-27-2023 ANNUAL PCP TEAM CHRONIC DISEASE VISIT ANNUAL PCP TEAM CHRONIC DISEASE VISIT [facility] Start: 03-13-2023 ANNUAL PCP TEAM CHRONIC DISEASE VISIT ANNUAL PCP TEAM CHRONIC DISEASE VISIT [facility] Start: 02-23-2023 Hemoglobin A1c/Hemoglobin.total in Blood HBA1C [facility] Start: 12-30-2022 3 comp foot exam completed DIABETIC FOOT EXAM [facility] Start: 12-30-2022 BP CONTROLLED (<130/80) BP CONTROLLED (<130/80) [facility] Start: 12-30-2022 Diabetic foot examination Diabetic Foot Exam [facility] Start: 12-22-2022 ANNUAL PCP TEAM CHRONIC DISEASE VISIT ANNUAL PCP TEAM CHRONIC DISEASE VISIT [facility] Start: 12-15-2022 End: 07-17-2023 Non-invasive physiologic study extremity 3 levls US ARTERIAL PVR LOWER Radiology Routine PVD (peripheral vascular disease) (HCC) S/P AKA (above knee amputation), left (HCC) S/P vascular bypass Expected: 12/15/2022, Expires: 07/17/2023 [facility] Work Phone: Comment on above: Expected: 12/15/2022, Expires: 3 Start: 11-10-2022 COVID-19 VACCINE (6 - Pfizer series) COVID-19 VACCINE (6 - Pfizer series) [facility] Start: 11-06-2022 Hemoglobin A1c/Hemoglobin.total in Blood HBA1C [facility] Start: 09-20-2022 ADVANCE DIRECTIVE DISCUSSION ADVANCE DIRECTIVE DISCUSSION [facility] Start: 09-20-2022 DEPRESSION ASSESSMENT DEPRESSION ASSESSMENT [facility] Start: 07-04-2022 Colonoscopy COLONOSCOPY [facility] Start: 06-24-2022 End: 08-24-2022 ALBUMIN/CREAT RATIO RND UR ALBUMIN/CREAT RATIO RND UR Lab Routine Type 2 diabetes mellitus (HCC) Expected: 06/24/2022, Expires: 08/24/2022 [facility] Work Phone: Comment on above: Expected: 06/24/2022, Expires: 2 Start: 06-24-2022 End: 08-24-2022 Lipid 1996 panel - Serum or Plasma LIPID PANEL BASIC Lab Routine Hyperlipidemia Expected: 06/24/2022, Expires: 08/24/2022 [facility] Work Phone: Comment on above: Expected: 06/24/2022, Expires: 2 Start: 06-24-2022 End: 08-24-2022 SCHEDULE LAB TESTING SCHEDULE LAB TESTING Lab Routine Expected: 06/24/2022, Expires: 08/24/2022 [facility] Work Phone: Comment on above: Expected: 06/24/2022, Expires: 2 Start: 05-21-2022 Influenza vaccination INFLUENZA (#1) [facility] Start: 04-09-2022 Hepatitis B screening URINE ALBUMIN:CREATININE RATIO [facility] Start: 04-09-2022 Hepatitis B surface antibody level LDL CHOLESTEROL [facility] Start: 03-31-2022 Hemoglobin A1c/Hemoglobin.total in Blood HBA1C [facility] Start: 02-19-2022 COVID-19 VACCINE (5 - Booster for Pfizer series) COVID-19 VACCINE (5 - Booster for Pfizer series) [facility] Start: 12-17-2021 Hemoglobin A1c/Hemoglobin.total in Blood HBA1C [facility] Start: 12-11-2021 Hepatitis C antibody, confirmatory test DILATED RETINAL EXAM [facility] Start: 10-04-2021 3 comp foot exam completed DIABETIC FOOT EXAM [facility] Start: 09-20-2021 ADVANCE DIRECTIVE DISCUSSION ADVANCE DIRECTIVE DISCUSSION [facility] Start: 09-20-2021 DEPRESSION ASSESSMENT DEPRESSION ASSESSMENT [facility] Start: 12-26-2016 PNEUMOVAX AGE 65 AND OVER WITH 5YR LOOKBACK (#1) PNEUMOVAX AGE 65 AND OVER WITH 5YR LOOKBACK (#1) [facility] Start: 2011 Hepatitis B Vaccine (1 of 3 - Risk 3-dose series) Hepatitis B Vaccine (1 of 3 - Risk 3-dose series) [facility] Start: 2011 RSV Vaccine (1 - 1-dose 60+ series) RSV Vaccine (1 - 1-dose 60+ series) [facility] Start: 2011 RSV Vaccine (1 - Risk 60-74 years 1-dose series) RSV Vaccine (1 - Risk 60-74 years 1-dose series) [facility] Start: 12-26-2001 SHINGRIX VACCINE (1 of 2) SHINGRIX VACCINE (1 of 2) [facility] Start: 12-26-1996 COLOGUARD (FIT-DNA) COLOGUARD (FIT-DNA) [facility] Start: 12-26-1996 Colonoscopy COLONOSCOPY [facility] Start: 12-26-1996 COLORECTAL CANCER SCREENING COLORECTAL CANCER SCREENING [facility] Start: 12-26-[address] COLONOGRAPHY [facility] Start: 12-26-1996 FECAL OCCULT BLOOD FECAL OCCULT BLOOD [facility] Start: 12-26-1996 Screening for malignant neoplasm of colon [facility] Start: 12-26-1996 SIGMOIDOSCOPY SIGMOIDOSCOPY [facility] Start: 12-26-1970 Urine microalbumin profile [facility] Start: 12-26-1969 Anxiety Screening Anxiety Screening [facility] Start: 12-26-1969 BP CONTROLLED (<130/80) BP CONTROLLED (<130/80) [facility] Start: 12-26-1969 Depression Screening Depression Screening [facility] Start: 12-26-1969 HEPATITIS C SCREENING HEPATITIS C SCREENING [facility] Start: 12-26-1969 Hepatitis C screening Hepatitis C Screening [facility] Start: 1963 Adult depression screening assessment DEPRESSION SCREENING [facility] Start: 12-26-1957 PNEUMOCOCCAL: 65+ (1 - PCV) PNEUMOCOCCAL: 65+ (1 - PCV) [facility] Adjt tis trnsfr/rear gmt defec ea addl 30 sqcm ADJACENT TISSUE TRANSFER / REARRANGEMENT LOWER EXTREMITY ADD'L < OR =30 SQCM SQCM Neuropathic pain [place] OR CBC panel - Blood by Automated count CBC Lab Routine Anemia, unspecified type Ordered: 08/06/2022 [facility] Work Phone: Comment on above: Ordered: 08/06/2022 CBC panel - Blood by Automated count CBC Lab Routine Type 2 diabetes mellitus with diabetic peripheral angiopathy without gangrene, with long-term current use of insulin (HCC) Coronary artery disease involving [place] coronary artery of [place] heart with angina pectoris (HCC) Ordered: 02/24/2023 [facility] Work Phone: Comment on above: Ordered: 02/24/2023 End: 01-27-2024 COLONOSCOPY DIAGNOSTIC COLONOSCOPY DIAGNOSTIC Endoscopy Routine Positive FIT (fecal immunochemical test) History of colonic polyps 1 Occurrences starting 01/26/2023 until 01/27/2024 [facility] Work Phone: Comment on above: 1 Occurrences starting 01/26/2023 until 01/27/2024 Comprehensive metabo lic 2000 panel - Serum or Plasma COMP METABOLIC PANEL Lab Routine Type 2 diabetes mellitus with diabetic peripheral angiopathy without gangrene, with long-term current use of insulin (HCC) Primary hypertension Ordered: 08/06/2022 [facility] Work Phone: Comment on above: Ordered: 08/06/2022 Comprehensive metabo lic 2000 panel - Serum or Plasma COMP METABOLIC PANEL Lab Routine Type 2 diabetes mellitus with diabetic peripheral angiopathy without gangrene, with long-term current use of insulin (HCC) Coronary artery disease involving [place] coronary artery of [place] heart with angina pectoris (HCC) Ordered: 02/24/2023 [facility] Work Phone: Comment on above: Ordered: 02/24/2023 End: 05-21-2023 Ct angiography chest w/contrast/noncontrast CTA CHEST (GATED) W IVCON Radiology ROGER Disorder of artery or arteriole (HCC) 1 Occurrences starting 04/21/2022 until 05/21/2023 [facility] Work Phone: Comment on above: 1 Occurrences starting 04/21/2022 until 05/21/2023 End: 05-21-2023 Cta abdl aorta&bi iliofem w/contrast&postp CTA ABD/PEL LOWER EXTREM W IVCON Radiology ROGER Atherosclerosis of aorta (HCC) Peripheral vascular disease (HCC) Diminished pulses in lower extremity 1 Occurrences starting 04/21/2022 until 05/21/2023 [facility] Work Phone: Comment on above: 1 [...] extremity 1 Occurrences starting 06/29/2023 until 07/28/2024 [facility] Work Phone: Comment on above: 1 Occurrences starting 06/29/2023 until 07/28/2024 End: 08-24-2022 Duplex scan extracranial art compl bi study [facility] Work Phone: Comment on above: 1 Occurrences starting 08/24/2022 until 08/24/2022 ECG COMPLETE ECG COMPLETE ECG Routine Tachycardia Ordered: 07/19/2023 [facility] Work Phone: Comment on above: Ordered: 07/19/2023 End: 07-12-2025 Echocardiography ECHO Cardiology Routine HFrEF (heart failure with reduced ejection fraction) (HCC) Atherosclerosis of [place] coronary artery of [place] heart without angina pectoris Mixed hyperlipidemia PAD (peripheral artery disease) (HCC) Hypertension 1 Occurrences starting 07/12/2024 until 07/12/2025 [facility] Work Phone: Comment on above: 1 Occurrences starting 07/12/2024 until 07/12/2025 HB A1C B/O HB A1C B/O Lab R outine Type 2 diabetes mellitus with diabetic peripheral angiopathy without gangrene, with long-term current use of insulin (HCC) Ordered: 03/27/2024 [facility] Work Phone: Comment on above: Ordered: 03/27/2024 HB A1C B/O HB A1C B/O Lab R outine Type 2 diabetes mellitus with diabetic peripheral angiopathy without gangrene, with long-term current use of insulin (HCC) Ordered: 06/27/2024 [facility] Work Phone: Comment on above: Ordered: 06/27/2024 HB A1C B/O HB A1C B/O Lab R outine Type 2 diabetes mellitus with diabetic neuropathy, with long-term current use of insulin ([facility]) Ordered: 03/05/2025 [facility] Work Phone: Comment on above: Ordered: 03/05/2025 Hemoglobin A1c in Blood HGB A1C Lab Routine Type 2 diabetes mellitus with diabetic peripheral angiopathy without gangrene, with long-term current use of insulin ([facility]) Ordered: 08/06/2022 [facility] Work Phone: Comment on above: Ordered: 08/06/2022 Hemoglobin A1c in Blood HGB A1C Lab Routine Type 2 diabetes mellitus with diabetic peripheral angiopathy without gangrene, with long-term current use of insulin ([facility]) Ordered: 02/24/2023 [facility] Work Phone: Comment on above: Ordered: 02/24/2023 Implantation nerve e nd bone/muscle IMPLANTATION NERVE END INTO BONE OR MUSCLE Neuropathic pain [place] OR Iron and Iron bindin g capacity panel - Serum or Plasma IRON + TIBC Lab Routine Anemia, unspecified type Ordered: 08/06/2022 [facility] Work Phone: Comment on above: Ordered: 08/06/2022 Lipid 1996 panel - S edy or Plasma LIPID PANEL BASIC Lab Routine Type 2 diabetes mellitus with diabetic peripheral angiopathy without gangrene, with long-term current use of insulin (HCC) Coronary artery disease involving [place] coronary artery of [place] heart with angina pectoris (HCC) Ordered: 02/24/2023 [facility] Work Phone: Comment on above: Ordered: 02/24/2023 End: 03-22-2023 Mri spinal canal lumbar w/o contrast material MRI LUMBAR SPINE WO IVCON Radiology Routine Spinal stenosis of lumbar region with neurogenic claudication 1 Occurrences starting 02/20/2022 until 03/22/2023 [facility] Work Phone: Comment on above: 1 Occurrences starting 02/20/2022 until 03/22/2023 End: 05-14-2023 Mri spinal canal lumbar w/o contrast material MRI LUMBAR SPINE WO IVCON Radiology STAT Spinal stenosis of lumbar region with neurogenic claudication 1 Occurrences starting 04/14/2022 until 05/14/2023 [facility] Work Phone: Comment on above: 1 Occurrences starting 04/14/2022 until 05/14/2023 PT PLAN OF CARE CERTIFICATION PT PLAN OF CARE CERTIFICATION Procedures Routine Acute right-sided low back pain with right-sided sciatica Ordered: 01/16/2022 [facility] Work Phone: Comment on above: Ordered: 01/16/2022 PT PLAN OF CARE CERTIFICATION PT PLAN OF CARE CERTIFICATION Procedures Routine Difficulty walking Weakness of both lower extremities Ordered: 11/03/2022 [facility] Work Phone: Comment on above: Ordered: 11/03/2022 PT PLAN OF CARE CERTIFICATION PT PLAN OF CARE CERTIFICATION Procedures Routine Difficulty walking Weakness of both lower extremities Ordered: 03/04/2023 [facility] Work Phone: Comment on above: Ordered: 03/04/2023 PT PLAN OF CARE CERTIFICATION PT PLAN OF CARE CERTIFICATION Procedures Routine Difficulty walking Weakness of both lower extremities Ordered: 05/06/2023 [facility] Work Phone: Comment on above: Ordered: 05/06/2023 End: 09-16-2024 Radiologic exam chest 2 views XR CHEST 2V FRONTAL/LAT Radiology Routine 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) 1 Occurrences starting 08/18/2023 until 09/16/2024 [facility] Work Phone: Comment on above: 1 Occurrences starting 08/18/2023 until 09/16/2024 SPINE INTERVENTION PROCEDURE SPINE INTERVENTION PROCEDURE Procedures Routine Acute right-sided low back pain with right-sided sciatica Spinal stenosis of lumbar region with neurogenic claudication Ordered: 06/09/2023 [facility] Work Phone: Comment on above: Ordered: 06/09/2023 SURGICAL PATHOLOGY [facility] Work Phone: Comment on above: Release Upon Ordering for 1 Occurrences starting 05/26/2023, 1 completed Thyrotropin [Units/volume] in Serum or Plasma TSH BLD Lab Routine Type 2 diabetes mellitus with diabetic peripheral angiopathy without gangrene, with long-term current use of insulin ([facility]) Ordered: 02/24/2023 [facility] Work Phone: Comment on above: Ordered: 02/24/2023 US Carotid arteries - bilateral [facility] Work Phone: Comment on above: Ordered: 04/03/2024 US Carotid arteries - bilateral US CAROTID BILATERAL Radiology Routine Carotid stenosis, asymptomatic, bilateral History of bilateral carotid endarterectomy Ordered: 05/07/2025 [facility] Work Phone: Comment on above: Ordered: 05/07/2025 WOUND HBO TREATMENT WOUND HBO TR EATMENT Procedures Routine 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) Gangrene of toe of right foot (HCC) Type 2 diabetes mellitus with foot ulcer (CODE) (HCC) Peripheral vascular disease, unspecified (HCC) Ordered: 08/18/2023 [facility] Work Phone: Comment on above: Ordered: 08/18/2023 End: 08-14-2024 XR FEMUR GENERAL 2V AP/LAT LEFT XR FEMUR GENERAL 2V AP/LAT LEFT Radiology Routine Abnormal radiographic examination 1 Occurrences starting 07/16/2023 until 08/14/2024 [facility] Work Phone: Comment on above: 1 Occurrences starting 07/16/2023 until 08/14/2024 XR FEMUR GENERAL 2V AP/LAT LEFT XR FEMUR GENERAL 2V AP/LAT LEFT Radiology Routine Abnormal radiographic examination 07/16/2023 11:28 AM EDT [facility] Work Phone: End: 08-14-2024 XR FOOT GENERAL 3V AP/LAT/OBL RIGHT XR FOOT GENERAL 3V AP/LAT/OBL RIGHT Radiology Routine 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) 1 Occurrences starting 07/16/2023 until 08/14/2024 [facility] Work Phone: Comment on above: 1 Occurrences starting 07/16/2023 until 08/14/2024 XR FOOT GENERAL 3V AP/LAT/OBL RIGHT XR FOOT GENERAL 3V AP/LAT/OBL RIGHT Radiology Routine 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) 07/16/2023 11:28 AM EDT [facility] Work Phone: [facility] Immunizations Immunization Date Immunization Notes Care Provider Giuliana duncan 06-27-2024 COVID-19 vaccine, ag e 12+ yr (PFIZER-BIONTECH COMIRNATY) 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: [facility] 06-27-2024 influenza, high dose seasonal, preservative-free 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: [facility] 06-27-2024 respiratory syncytia l virus (RSV) vaccine, adjuvanted (AREXVY) 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: [facility] 06-27-2024 influenza virus vacc ine, unspecified formulation Eduin Coleman 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[employer] Work Phone: [facility] 07-19-2023 COVID-19 vaccine, ag e 12+ yr, season (PFIZER-BIONTECH) Paulina Severino MD Work Phone: [facility] 07-19-2023 influenza (HD-IIV4) vaccine, age 65+ yr, high dose, quadrivalent, PF (FLUZONE HIGH-DOSE) Paulina Severino MD Work Phone: [facility] 07-19-2023 influenza virus vacc ine, unspecified formulation Madonna Montiel RN [facility] 04-22-2023 COVID-19 vaccine, ag e 12+ yr, bivalent (PFIZER-BIONTECH) Paulina Severino MD Work Phone: [facility] 07-10-2022 COVID-19 booster vaccine, age 12+ yr, bivalent (PFIZER-BIONTECH) Paulina Severino MD Work Phone: [facility] 07-10-2022 influenza, high-dose , quadrivalent vaccine (FLUZONE HIGH DOSE QUADRIVALENT) Paulina Severino MD Work Phone: [facility] 07-10-2022 pneumococcal polysaccharide vaccine, 23 valent Paulina Severino MD Work Phone: [facility] 07-10-2022 influenza virus vacc ine, unspecified formulation Sandra Alba [facility] 12-25-2021 COVID-19 original vaccine, age 12+ yr, monovalent (PFIZER-BIONTECH - GREEN TOP) Paulina Severino MD Work Phone: [facility] 08-05-2021 zoster vaccine recombinant Paulina Severino MD Work Phone: [facility] 07-22-2021 COVID-19 original vaccine, age 12+ yr, monovalent (PFIZER-BIONTECH - PURPLE TOP) Paulina Severino MD Work Phone: [facility] 06-04-2021 influenza, high-dose , quadrivalent vaccine (FLUZONE HIGH DOSE QUADRIVALENT) Paulina Severino MD Work Phone: [facility] 06-04-2021 zoster vaccine recombinant Paulina Severino MD Work Phone: [facility] 12-16-2020 COVID-19 vaccine, ag e 12+ yr (PFIZER-BIONTECH - PURPLE TOP) Paulina Severino MD Work Phone: [facility] 11-25-2020 COVID-19 vaccine, ag e 12+ yr (PFIZER-BIONTECH - PURPLE TOP) Paulina Severino MD Work Phone: [facility] 07-10-2020 influenza, high dose seasonal, preservative-free Paulina Severino MD Work Phone: [facility] Work Phone: 05-13-2020 influenza, high-dose , quadrivalent vaccine (FLUZONE HIGH DOSE QUADRIVALENT) Paulina Severino MD Work Phone: [facility] 06-01-2019 influenza, high dose seasonal, preservative-free Paulina Severino MD Work Phone: [facility] 05-30-2019 influenza, high dose seasonal, preservative-free Paulina Severino MD Work Phone: [facility] 06-20-2018 influenza, high dose seasonal, preservative-free Paulina Severino MD Work Phone: [facility] 06-09-2018 influenza, high dose seasonal, preservative-free Paulina Severino MD Work Phone: [facility] 06-06-2018 influenza, high dose seasonal, preservative-free Paulina Severino MD Work Phone: [facility] 05-21-2016 influenza, seasonal, injectable Paulina Severino MD Work Phone: [facility] 05-06-2016 pneumococcal polysaccharide vaccine, 23 valclaudia Severino MD Work Phone: [facility] 07-11-2015 pneumococcal conjuga te vaccine, 13 valclaudia Severino MD Work Phone: [facility] Payers Date Payer Category Payer Self-pay 2025 Medicare [id number] 2021 Medicare [id number] 2021 Medicare UHC AARP MEDICAR E UHC AARP MEDICARE HMO [id number] 2021-Present [phone] [address] [address] [place] [address] HMO [id number] 2021 Medicare (Managed Care) [id number]. [id number] 2021 Medicare [id number] 1950 Unknown [id number] Unknown [id number] Unknown [id number] Unknown [id number] Unknown [id number] Unknown [id number] Unknown [id number] Social History Date Type Detail Facility Start: 11-14-2015 End: 06-06-2024 Tobacco smoking status NHIS Ex-smoker [facility] End: 03-06-1999 History of tobacco use Current smoker [facility] End: 03-06-1999 History of tobacco use Cigarette Smoker [facility] Start: 12-22-2021 End: 03-29-2025 Alcohol intake Current non-drinker of alcohol (finding) [facility] Start: 11-14-2015 End: 06-17-2022 Tobacco Comment Start date: 1969; Stop date: 1998 [facility] Start: 1950 Sex Assigned At Male C [facility] Start: 12-12-2021 End: 08-06-2022 Exposure to SARS-CoV-2 (event) Not sure [facility] Start: 03-08-2022 End: 03-18-2022 Exposure to SARS-CoV-2 (event) Unable to assess [facility] Work Phone: Start: 11-14-2015 End: 06-06-2024 Tobacco use and exposure Smokeless tobacco non-user [facility] Start: 01-20-2023 End: 02-24-2023 History of Social function [facility] Work Phone: Start: 01-20-2023 End: 02-24-2023 Tobacco use panel [facility] Work Phone: Start: 08-21-2012 Adult Depression Screening Assessment 0 [facility] Work Phone: Start: 09-04-2020 Gender identity Identifies as male gender (finding) [facility] Start: 09-04-2020 Sexual orientation Heterosexual (fin ramya) [facility] (I/We) worried whekinjal er (my/our) food would run out before (I/we) got money to buy more. Never true [facility] In the past 12 month s, was there a time when you were not able to pay the mortgage or rent on time? No [facility] How often to you hav e a drink containing alcohol? Never [facility] Medical Equipment Procedure Code Equipment Code Equipment Origin al Text Equipment Identifier Dates [id number]-[id number] Implant - [id number] Start: 04-29-2018 [id number], [id number], [id number] Start: 09-03-2021 End: 06-07-2024 Comment on above: [...] insulin administration. Graft 6mm Thin W all Woodridge-Calderon 80cm 60cm Vascular Stretch Removable Ring Line - [id number] Start: 05-01-2022 Woodridge-Calderon Interin g Stretch Thin Wall 6mm X 40cm [id number] Start: 05-01-[address] 10mm Extracellular Matrix 40mm Nerve Multilaminar - [id number] Start: 04-05-2025 Uvalda Mini Sutu re Quickanchor Plus Ethibond 2-0 V-5 Trocar Tip Titanium - [id number] Start: 04-05-2025 Goals Date Patient Goal Desired Activity /State Personal health goal Functional Status Date Assessment Result Facility 05-02-2025 Are you deaf, or do you have serious difficulty hearing No 05/02/2025 2:06 PM Adriana Hicks RN No [facility] 05-02-2025 Are you blind, or do you have serious difficulty seeing, even when wearing glasses No 05/02/2025 2:06 PM Adriana Hicks RN No [facility] 05-02-2025 Do you have serious difficulty walking or climbing stairs Yes 05/02/2025 2:06 PM Adriana Hicks RN Yes [facility] 05-02-2025 Do you have difficul ty dressing or bathing Yes 05/02/2025 2:06 PM Adriana Hicks RN Yes [facility] 05-02-2025 Because of a physica l, mental, or emotional condition, do you have difficulty doing errands alone such as visiting a physician's office or shopping No 05/02/2025 2:06 PM Adriana Hicks RN No [facility] 02-26-2025 Are you deaf, or do you have serious difficulty hearing No 02/26/2025 12:58 PM Velma Wade RN No [facility] 02-26-2025 Are you blind, or do you have serious difficulty seeing, even when wearing glasses No 02/26/2025 12:58 PM Velma Wade RN No [facility] 02-26-2025 Do you have serious difficulty walking or climbing stairs Yes 02/26/2025 12:58 PM Velma Wade RN Yes [facility] 02-26-2025 Do you have difficul ty dressing or bathing Yes 02/26/2025 12:58 PM Velma Wade RN Yes [facility] 02-26-2025 Because of a physica l, mental, or emotional condition, do you have difficulty doing errands alone such as visiting a physician's office or shopping No 02/26/2025 12:58 PM Velma Wade RN No [facility] 11-04-2024 Are you deaf, or do you have serious difficulty hearing No 11/04/2024 1:45 PM Jessica Granger RN No [facility] 11-04-2024 Are you blind, or do you have serious difficulty seeing, even when wearing glasses No 11/04/2024 1:45 PM Jessica Granger, SACHI No [facility] 11-04-2024 Do you have serious difficulty walking or climbing stairs Yes 11/04/2024 1:45 PM Jessica Granger, SACHI Yes [facility] 11-04-2024 Do you have difficul ty dressing or bathing Yes 11/04/2024 1:45 PM Jessica Granger, SACHI Yes [facility] 11-04-2024 Because of a physica l, mental, or emotional condition, do you have difficulty doing errands alone such as visiting a physician's office or shopping Yes 11/04/2024 1:45 PM Jessica Granger, RN Yes [facility] Mental Status Date Assessment Result Facility 05-02-2025 Because of a physica l, mental, or emotional condition, do you have serious difficulty concentrating, remembering, or making decisions No 05/02/2025 2:06 PM EDT Adriana Tsang, SACHI No [facility] 02-26-2025 Because of a physica l, mental, or emotional condition, do you have serious difficulty concentrating, remembering, or making decisions No 02/26/2025 12:58 PM EDT Velma Blancas RN No [facility] 11-04-2024 Because of a physica l, mental, or emotional condition, do you have serious difficulty concentrating, remembering, or making decisions Yes 11/04/2024 1:45 PM Jessica Granger, SACHI Yes [facility] Clinical Notes 07-26-2017 to 05-10-2025 Telephone Encounter - Cheryl Reese MA - 05/10/2025 10:50 AM EDTTelephone Encounter - Cheryl Reese MA - 05/10/2025 10:50 AM EDTTelephone Encounter - Aurelio Ortiz - 05/02/2025 1:25 PM EDT Note Date & Type Note Facility 05-10-2025 Telephone encounter Note Muriel from [facility] is asking if you can put in an order for patient to have catheter removed. He was in the hospital 04/05/25 you were consulted. Patient has an appointment 05/16/25 for void trial. Do you want him to wait until then or have facility remove catheter. [phone] ask for Muriel. [facility] 05-10-2025 Miscellaneous Notes Muriel from [facility] is asking if you can put in an order for patient to have catheter removed. He was in the hospital 04/05/25 you were consulted. Patient has an appointment 05/16/25 for void trial. Do you want him to wait until then or have facility remove catheter. [phone] ask for Muriel. documented in this encounter [facility] 05-02-2025 Telephone encounter Note Admitted. [facility] 05-02-2025 Miscellaneous Notes Admitted. Pt was straight cath + many foleys while admitted [place] with nurse in 1 week Thanks! documented in this encounter [facility] 05-01-2025 Telephone encounter Note Pt was straight cath + many foleys while admitted [place] with nurse in 1 week Thanks! [facility] Work Phone: 04-23-2025 Note [facility] 04-23-2025 Note [facility] 04-22-2025 Note [facility] 04-21-2025 Note [facility] 04-21-2025 Note [facility] 04[facility]21-2025 Note [facility] 04-21-2025 Note [facility] 04-20-2025 Note [facility] 04-20-2025 Note [facility] 04-20-2025 Note [facility] 04-19-2025 Note [facility] 04-19-2025 Note [facility] 04-19-2025 Note [facility] 04-18-2025 Note [facility] 04-18-2025 Note [facility] 04-18-2025 Note [facility] 04-17-2025 Note [facility] 04-17-2025 Note [facility] 04-17-2025 Note [facility] 04-16-2025 Note [facility] 04-16-2025 Note [facility] 04-15-2025 Note [facility] 04-14-2025 Note [facility] 04-13-2025 Note [facility] 04-12-2025 Note [facility] 04-12-2025 Note [facility] 04-12-2025 Note [facility] 04[facility]12-2025 Note [facility] 04-11-2025 Note [facility] 04-11-2025 Note [facility] 04-10-2025 Note [facility] 04-10-2025 Note [facility] 04-10-2025 Note [facility] 04-10-2025 Note [facility] 04-10-2025 Note [facility] 04-10-2025 Note [facility] 04-10-2025 Note [facility] 04-10-2025 Note [facility] 04-09-2025 Note [facility] 04-09-2025 Note [facility] 04-09-2025 Note [facility] 04-09-2025 Note HNO ID: [id number] Author: SANDRA MORRISON, RN Service: Nursing Author Type: Registered Nurse Type: Nursing Progress Note Filed: 04/09/2025 14:08 Note Text: Peep to 10 cm and Fio2 decreased to 90% and rate decreased to 20. By Agata Aquino NP [facility] 04-09-2025 Note HNO ID: [id number] Author: SANDRA MORRISON RN Service: Nursing Author Type: Registered Nurse Type: Nursing Progress Note Filed: 04/09/2025 14:05 Note Text: Vent. RR increased to 22 per Nataliia Aquino [facility] 04-09-2025 Note [facility] 04-09-2025 Note [facility] 04-09-2025 Note [facility] 04-08-2025 Note [facility] 04-08-2025 Note [facility] 04-08-2025 Note [facility] 04-07-2025 Note [facility] 04-06-2025 Note [facility] [place] 04[facility]06-2025 Note [facility] 04-06-2025 Note [facility] [place] 04-06-2025 Note [facility] 04-06-2025 Note [facility] [place] 04-05-2025 Note SARS-COV-2 (AGENT OF COVID-19) RNA: Not detected INFLUENZA A RNA: Not detected INFLUENZA B RNA: Not detected RESPIRATORY SYNCYTIAL VIRUS (RSV) RNA: Not detected [facility] Comment on above: Performed By: #### 9 [id number] ####[facility]ATORYCLIA [id number] [place] [address] [place] [facility] 04-05-2025 Note [facility] 04-05-2025 Telephone encounter Note Called pt, left vm. Sent mychart message as well. [facility] 04-05-2025 Miscellaneous Notes Called pt, left vm. Sent mychart message as well. documented in this encounter [facility] 04-05-2025 Note [facility] [place] 04-05-2025 Note [facility] 04-05-2025 Note [facility] 04-04-2025 Telephone encounter Note Shilo notified of arrival time for surgery tomorrow: 04/05 Arrive at 6:00 for surgery at 8:00. Npo after midnight. Pt voices understanding. Encouraged to call with questions or problems. [facility] 04-04-2025 Miscellaneous Notes Shilo notified of arrival time for surgery tomorrow: 04/05 Arrive at 6:00 for surgery at 8:00. Npo after midnight. Pt voices understanding. Encouraged to call with questions or problems. documented in this encounter [facility] 04-04-2025 Note [facility] 04-03-2025 Telephone encounter Note Called and spoke with customer data technician Zaid. Goode states he will re-fax and it can take up to 24 hours to receive. Confirmed fax number. Called and updated pt. Pt would like to be updated once the form is received on our end and faxed back to [facility]. [facility] 04-03-2025 Miscellaneous Notes Called and spoke with customer data technician Russel. Russel states he will re-fax and it can take up to 24 hours to receive. Confirmed fax number. Called and updated pt. Pt would like to be updated once the form is received on our end and faxed back to [facility]. Awaiting receipt of fax from [facility]. Will call insurance customer service to assist. [...] paperwork is completed and faxed back to [facility] Patient has been identified by name and birthdate. Person calling: self Call patient at: on cell [phone] (home) [phone] (cell) Was an appointment scheduled: No Closing statement: Results or non-symptom based questions: Thank you for calling [facility], your call will be returned within the next business day. Kim Valdez documented in this encounter [facility] 04-03-2025 Telephone encounter Note Awaiting receipt of fax from [facility]. Will call insurance customer service to assist. [facility] 04-03-2025 Telephone encounter Note Patient is asking for the status of paperwork. Patient's insurance states they will cancel his insurance if this is not received. [facility] 04-02-2025 Telephone encounter Note Shilo is calling Paulina Severino MD today to advise patient insurance [employer] is to fax a paper for PCP to fill out regarding chronic illness to keep his health insurance. Has this been received in office today? Please fill out that information and advise patient when paperwork is completed and faxed back to [facility] health insurance Patient has been identified by name and birthdate. Person calling: self Call patient at: on cell [phone] (home) [phone] (cell) Was an appointment scheduled: No Closing statement: Results or non-symptom based questions: Thank you for calling [facility] [place] [facility], your call will be returned within the next business day. Kim Valdez [facility] [place] [facility] 03-29-2025 History and physical note Images from [...] ASA, Plavix, Xarelto Coronary artery disease involving port graham coronary artery of port graham heart AL and stetnt 199 STEMI September 2024 S/p PCI to RCA 10/30/2024 LHC: 50% narrowing of the left main, LAD with multiple lesions, circumflex with severe disease in the RCA with severe calcified disease. He also had in-stent stenosis. He was not recommended for CABG, was recommended for medical treatment. Managed by [facility]. Last office visit 02/28/2025 Denies [...] reduced ejection fraction) (HCC) Stable Managed by [facility] Current Rx: Imdur, hydralazine, carvedilol, [...] R fem- L fem bypass with B HEAD OF DATA endart -- 2016 DJW - L groin [...] encounter. No labs ordered per surgeon in [facility] Lab orders from primary to be done [...] and PTCA Patient's last office visit with negative turner apprentice, Liz Edmond, was 02/28/2025. Negative for: AICD/PPM, [...] occlusive disease (HCC) Atherosclerotic heart disease of port graham coronary artery without angina pectoris Carotid artery [...] 388 QTC Calculation (Bazett) 421 Calculated P Gamaliel -10 Calculated R Gamaliel 58 Calculated T Gamaliel 78 Impression NORMAL SINUS RHYTHM NORMAL ECG Confirmed by ASHLEY COLLINS MD ([id number]) on 11/08/2024 9:16:03 PM Recent Results (from the past 34974 hours) ECHO Collection Time: 10/19/24 9:40 AM [...] which included preparing to see the patient, [id number] patient care, completing clinical documentation, obtaining and/or reviewing separately obtained history, performing a medically appropriate examination, counseling and educating the patient/family/caregiver, communicating with other HCPs (not separately reported), independently interpreting results (not separately reported), and communicating results to the patient/family/caregiver. SIGNATURE: Mel Aponte APRN.CNP PATIENT NAME: Shilo Hathaway DATE: March 29, 2025 TIME: 10:00 AM PAGER/CONTACT #: [facility] [place] [facility] 03-29-2025 History and physical note Images from [...] ASA, Plavix, Xarelto Coronary artery disease involving port graham coronary artery of port graham heart AL and stetnt 199 STEMI September 2024 S/p PCI to RCA 10/30/2024 LHC: 50% narrowing of the left main, LAD with multiple lesions, circumflex with severe disease in the RCA with severe calcified disease. He also had in-stent stenosis. He was not recommended for CABG, was recommended for medical treatment. Managed by [facility]. Last office visit 02/28/2025 Denies [...] HFrEF (heart failure with reduced ejection fraction) ([facility]) Stable Managed by [facility] Current Rx: Imdur, hydralazine, carvedilol, Procardia, spironolactone Last office visit with cardiology 02/28/2025. EF 40% per PET scan 10/25/2024 Hypertension 02/23/2025 hospitalization for chest pain and hypertension. Systolic blood pressure 220s Has seen primary and cardiology posthospitalization. Type 2 diabetes mellitus with diabetic neuropathy, with long-term current use of insulin ([facility]) Rx: Insulin Managed by primary Continuous BGM BS today 132 Advised to contact prescribing provider for preop instructions Hemoglobin A1C (%) Date Value 02/21/2020 11.6 Hemoglobin A1C (POCT) (%) Date Value 03/05/2025 7.8 Peripheral artery disease Medical management per vascular surgery Per vascular note: Attempted ABF -- 2016 DJW - R Ax- fem / R fem- L fem bypass with B HEAD OF DATA endart -- 2016 DJW - L groin [...] encounter. No labs ordered per surgeon in [facility] Lab orders from primary to be done [...] Admin: COVID-19 vaccine, age 12+ yr, bivalent ([employer]) Only the first 3 history entries have [...] and PTCA Patient's last office visit with negative turner apprentice, Liz Edmond, was 02/28/2025. Negative for: AICD/PPM, [...] occlusive disease (HCC) Atherosclerotic heart disease of port graham coronary artery without angina pectoris Carotid artery [...] 388 QTC Calculation (Bazett) 421 Calculated P Gamaliel -10 Calculated R Gamaliel 58 Calculated T Gamaliel 78 Impression NORMAL SINUS RHYTHM NORMAL ECG Confirmed by ASHLEY COLLINS MD ([id number]) on 11/08/2024 9:16:03 PM Recent Results (from the past 95876 hours) ECHO Collection Time: 10/19/24 9:40 AM [...] which included preparing to see the patient, [id number] patient care, completing clinical documentation, obtaining and/or reviewing separately obtained history, performing a medically appropriate examination, counseling and educating the patient/family/caregiver, communicating with other HCPs (not separately reported), independently interpreting results (not separately reported), and communicating results to the patient/family/caregiver. SIGNATURE: Mel Aponte APRN.CNP PATIENT NAME: Shilo Hathaway DATE: March 29, 2025 TIME: 10:00 AM PAGER/CONTACT #: documented in this encounter [facility] 03-28-2025 Instructions Mel Aponte APRN.CNP - 03/28/2025 8:00 PM EDT PATIENT PREOPERATIVE INSTRUCTIONS No ref. provider found has scheduled you for your procedure at this surgery center: [facility]: [phone], [address] [place], [place] [address] Please read below carefully for your personalized [...] surgery. - YOU MUST HAVE A RESPONSIBLE POLICE PILOT 18 YEARS OR OLDER TAKE YOU HOME. A WARP COILER, CAB OR UBER POLICE PILOT CANNOT BE MADE A RESPONSIBLE POLICE PILOT. - We recommend that a responsible person [...] of surgery. -Orthopedic patients having surgery [facility] listed as outpatient should bring their walker into the building. -Orthopedic patients having surgery [facility] listed as to be admitted should [...] Advance Directive, please fax a copy to [phone] or email to for it to be [...] into your chart that day. Mel Aponte APRN.PIANO MECHANIC documented in this encounter [facility] 03-27-2025 Telephone encounter Note Prescription Refill Information [...] Boone LPN March 27, 2025 2:52 PM [facility] [place] [facility] 03-27-2025 Miscellaneous Notes Prescription Refill Information The [...] 2025 2:52 PM documented in this encounter [facility] 03-27-2025 Note HNO ID: [id number] Author: ARCHANA CORONA RN Service: ? Author Type: Registered Nurse Type: Progress Notes Filed: 03/29/2025 10:46 Note Text: [facility] 03-27-2025 History of Present illness Narrative documented in this encounter [facility] [place] [facility] 03-21-2025 Telephone encounter Note Received Cardiac clearance [...] he is currently stable Eduin Coleman APRN.CNP [facility] 03-21-2025 Miscellaneous Notes Received Cardiac clearance from [...] Eduin Coleman APRN.CNP documented in this encounter [facility] [place] [facility] 03-20-2025 History of Present illness Narrative Images from the original note were not included. Thierry Rush [address] [facility] [address] [place] [address] Plastic Surgery Office Note CC: Pre Operative Visit HPI: Shlio is a 74 year old male here today to discuss TMR/RPNI and myodesis. Had symptomatic heart attack earlier this year. Previously stented... currently on ASA and Eliquis. PAST MEDICAL HISTORY Diagnosis Date Aortoiliac occlusive disease (HCC) Atherosclerotic heart disease of port graham coronary artery without angina pectoris Carotid artery occlusion Carotid artery stenosis Cerebrovascular accident (CVA) (HCC) Coronary arteriosclerosis AL 1998 Depressive disorder Disc disorder of lumbar [...] Past Histories independently gathered by the clinical system support specialist and the remaining scribed note accurately describes my personal service to the patient. documented in this encounter [facility] [place] [facility] 03-20-2025 Note [facility] 03-19-2025 Telephone encounter Note Transitional Care Management (TCM) [facility] Monitoring [facility] Provider Action / FYI: na SUMMARY: Outreach type: INITIAL OUTREACH Discharge Network Status: In-Network Discharge Source of Patient: [facility] TCM Discharge Report Patient discharged from [facility] 02[facility]. Admitted for Chest pain. . Contact made with patient: No - 2nd unsuccessful attempt - end outreach and close encounter. Keisha Saunders March 19, 2025 10:25 AM [facility] [place] [facility] 03-19-2025 Miscellaneous Notes Transitional Care Management (TCM) [facility] Provider Action / FYI: na SUMMARY: Outreach type: INITIAL OUTREACH Discharge Network Status: In-Network Discharge Source of Patient: [facility] TCM Discharge Report Patient discharged from [facility] on 02.26.25. Admitted for Chest pain. . Contact made with patient: No - 2nd unsuccessful attempt - end outreach and close encounter. Keisha Saunders March 19, 2025 10:25 AM documented in this encounter [facility] [place] [facility] 03-15-2025 Telephone encounter Note Transitional Care Management (TCM) [facility] Provider Action / FYI: N/a SUMMARY: Outreach type: INITIAL OUTREACH Discharge Network Status: In-Network Discharge Source of Patient: [facility] TCM Discharge Report Patient discharged from [facility] on 02/26/2025. Admitted for Chest pain. Contact made with patient: No - next outreach attempt will be on next business day. Anita Banuelos March 15, 2025 1:36 PM [facility] [place] [facility] 03-15-2025 Miscellaneous Notes Transitional Care Management (TCM) [facility] Provider Action / FYI: N/a SUMMARY: Outreach type: INITIAL OUTREACH Discharge Network Status: In-Network Discharge Source of Patient: [facility] TCM Discharge Report Patient discharged from [facility] on 02/26/2025. Admitted for Chest pain. Contact made with patient: No - next outreach attempt will be on next business day. Anita Banuelos March 15, 2025 1:36 PM documented in this encounter [facility] [place] [facility] 03-05-2025 Telephone encounter Note Record ID: [id number] Patient name: Shilo Hathaway Date: March 05, [...] contact the 12/04 Appointment Center at [ ](tel:[phone]) to schedule a follow-up appointment. Thank you for your time and allowing us to care for you. We will check in on you over the next four weeks to ensure you continue to recover and support your needs. In the meantime, please reach out to your PCP for any questions or concerns.Thank you for choosing [facility] [place] [facility]! -> Thank you for your time and allowing us to care for you. We will check in on you over the next four weeks to ensure you continue to recover and support your needs. In the meantime, please reach out to your PCP for any questions or concerns.Thank you for choosing [facility] [place] [facility]! -> Great! Now we are in a [...] appointment yet since your discharge? -> Yes [facility] [place] [facility] 03-05-2025 Miscellaneous Notes Record ID: [id number] Patient name: Shilo Hathaway Date: March 05, [...] contact the 12/04 Appointment Center at [ ](tel:[phone]) to schedule a follow-up appointment. Thank you for your time and allowing us to care for you. We will check in on you over the next four weeks to ensure you continue to recover and support your needs. In the meantime, please reach out to your PCP for any questions or concerns.Thank you for choosing [facility] [place] [facility]! -> Thank you for your time and allowing us to care for you. We will check in on you over the next four weeks to ensure you continue to recover and support your needs. In the meantime, please reach out to your PCP for any questions or concerns.Thank you for choosing [facility]! -> Great! Now we are in a [...] discharge? -> Yes documented in this encounter [facility] 03-05-2025 Note [facility] 03-05-2025 History of Present illness Narrative Shilo Hathaway is a 74-year-old male with a history of CAD, presenting for follow-up after a recent hospitalization for chest pain and elevated blood pressure. CAD: - Recent hospitalization for chest pain and elevated blood pressure (220 mmHg). - Took nitroglycerin at home before calling EMS. - Reports burning pain, different from previous AL. - New onset dyspnea, particularly when lying [...] occlusive disease (HCC) Atherosclerotic heart disease of port graham coronary artery without angina pectoris Carotid artery occlusion Carotid artery stenosis Cerebrovascular accident (CVA) ([facility]) Coronary arteriosclerosis AL 1998 Depressive disorder Disc disorder of lumbar [...] of breath) STEMI (ST elevation myocardial infarction) ([facility]) Thrombosis of right femoral-femoral bypass graft Type 2 diabetes mellitus ([facility]) PAST SURGICAL HISTORY Procedure Laterality [...] neuropathy, with long-term current use of insulin ([facility]) (E11.40) - Blood glucose levels [...] UTD - Advised patient to contact cardiology ENGAGEMENT LIAISON to discuss symptoms and potential need for [...] if necessary. Lyubov Hernandez APRN.NATHALY Recording using [employer] software for draft documentation of the visit was discussed with the patient/authorized practice representative; all questions welcomed and answered. Patient/authorized practice representative agreed to proceed documented in this encounter [facility] [place] [facility] 02-28-2025 Instructions Eduin Coleman APRN.CNP - 02/28/2025 3:29 PM EDT Continue current regimen. Please call and complete your pending echocardiogram. Please pick your prescriptions and let me know if you need any refills. Follow up in 6 months with NIEZ or Dr. Moran. Please call if you have any questions or concerns. documented in this encounter [facility] [place] [facility] 02-28-2025 History of Present illness Narrative PRIMARY CARE PHYSICIAN: Paulina Severino [address] [place] [address] [place] [address] Chief Complaint Patient presents with: CARD Follow [...] this time patient previously saw a different negative turner apprentice at outside hospital in which she was [...] PCI of the mid RCA ISR and port graham disease with 3.0 x 30 mm AGENT Paclitaxel coated balloon. 4. Successful IVUS guided PCI of the distal RCA ISR and port graham disease with 3.0 x 30 mm AGENT [...] HFrEF (heart failure with reduced ejection fraction) ([facility]) - ICD9: 428.20, ICD10: I50.20 [...] -Personal history -Continue current regimen Eduin Coleman APRN.PIANO MECHANIC Plan: Continue current regimen, follow up in [...] for further evaluation. documented in this encounter [facility] 02-28-2025 Terence Edmond [facility] 02-27-2025 Telephone encounter Note Record ID: [id number] Patient name: Shilo Hathaway Date: February 27, [...] any new or worsening symptoms? -> No [facility] 02-27-2025 Miscellaneous Notes Record ID: [id number] Patient name: Shilo Hathaway Date: February 27, [...] symptoms? -> No documented in this encounter [facility] 02-26-2025 Note [facility] 02-25-2025 Note [facility] 02-24-2025 Note [facility] 01-29-2025 Note [facility] 01-29-2025 History of Present illness Narrative [...] Chronic Kidney Disease: - Recent evaluation by curriculum facilitator Dr. Fletcher in [place]. - Advised to undergo further testing in [place] in 1-2 weeks. - Believes kidney function [...] viable graft sites. - Follow-up appointment with negative turner apprentice Dr. Coleman scheduled in a couple of [...] as per standard guidelines. Attestation Recording using [employer] software for draft documentation of the visit was discussed with the patient/authorized practice representative; all questions welcomed and answered. Patient/authorized practice representative agreed to proceed Paulina Severino MD documented in this encounter [facility] 01-26-2025 Telephone encounter Note OK 1 fill. [...] once daily Authorizing Provider: PAULINA SEVERINO MD [facility] 01-26-2025 Miscellaneous Notes OK 1 fill. Due [...] Provider: PAULINA SEVERINO MD Pharmacy verified in [facility] Patient has been identified by [...] Gabrielle Miller MA documented in this encounter [facility] 01-26-2025 Telephone encounter Note Pharmacy verified in [facility] Patient has been identified by [...] 1.7 oz) Please advise. Gabrielle Miller MA [facility] 01-08-2025 Telephone encounter Note The following approved [...] once daily Authorizing Provider: PAULINA SEVERINO MD [facility] 01-08-2025 Miscellaneous Notes The following approved medication [...] 2025 11:20 AM documented in this encounter [facility] 01-08-2025 Telephone encounter Note Prescription Refill Information [...] Boone LPN January 08, 2025 11:20 AM [facility] 01-03-2025 Telephone encounter Note Called and notified pt. [facility] 01-03-2025 Miscellaneous Notes Called and notified pt. [...] Paulina Severino MD documented in this encounter [facility] 01-01-2025 Telephone encounter Note Shilo, agree you [...] PAIN RELIEF, CALL 911 Paulina Severino MD [facility] 12-13-2024 Telephone encounter Note Faxed to [phone] [facility] 12-13-2024 Miscellaneous Notes Faxed to [phone] Encounter Diagnosis ICD-10-CM 1. Stage 3a chronic kidney disease (HCC) N18.31 CONSULT TO NEPHROLOGY Please fax referral to Dr Queen office. Paulina Severino MD documented in this encounter [facility] 12-13-2024 Telephone encounter Note Encounter Diagnosis ICD-10-CM 1. Stage 3a chronic kidney disease (HCC) N18.31 CONSULT TO NEPHROLOGY Please fax referral to Dr Queen office. Paulina Severino MD [facility] 12-13-2024 Evaluation note Diagnosis Stage 3a chronic kidney disease (HCC)- Primary documented in this encounter [facility]03-24-2025 Telephone encounter Note* Telephone Encounter - Paulina [...] once daily. Authorizing Provider: PAULINA SEVERINO MD [facility]03-24-2025 Miscellaneous Notes* Telephone Encounter - Paulina Severino [...] 11, 2024 2:31 PM [facility] [place] [facility] Telephone encounter Note * Telephone Encounter - [...] Boone LPN December 11, 2024 2:31 PM [facility]03-05-2025 Telephone encounter Note* Telephone Encounter - Davin [...] in the office Thanks Mark Anthony Barriga [facility] Work Phone: [phone] Miscellaneous Notes* Telephone Encounter - Davin Moran [...] recent stenting and myocardial infarction treated at [facility]. I received a note that Dr. Rush is planning surgery but I am not certain as to what type of surgery and when it is to be done. Please let me know this information Thanks Mark Anthony Moran MD [facility] Cardiology [facility] [place] [facility] Telephone encounter Note * Telephone Encounter - Davin Moran MD - 11/22/2024 9:04 AM EST I am going to be seeing Mr. Hathaway in the office after his recent stenting and myocardial infarction treated at [facility]. I received a note that Dr. Rush is planning surgery but I am not certain as to what type of surgery and when it is to be done. Please let me know this information Thanks Mark Anthony Moran MD [facility] Cardiology [facility]03-05-2025 [facility]03-05-2025 History of Present illness Narrative* Davin Moran [...] well he ended up going to the [facility] and had stenting done to the RCA. [...] occlusive disease (HCC) Atherosclerotic heart disease of port graham coronary artery without angina pectoris Carotid artery occlusion Carotid artery stenosis Cerebrovascular accident (CVA) (HCC) Coronary arteriosclerosis [place] 1998 Depressive disorder Disc disorder of lumbar [...] of breath) STEMI (ST elevation myocardial infarction) ([facility]) Thrombosis of right femoral-femoral bypass [...] 22, 2024, 8:45 AM [facility] [place] [facility] Telephone encounter Note * Telephone Encounter - Paulina Severino MD - 11/20/2024 8:25 AM EST The following approved medication requests have been transmitted electronically. Requested Prescriptions Signed Prescriptions Disp Refills insulin lispro (HUMALOG KWIKPEN) 100 unit/mL 15 mL 0 Sig: INJECT 12 UNITS SUBCUTANEOUSLY THREE TIMES DAILY BEFORE MEALS -ADD 2 UNITS IF GLUCOSE IS OVER 250 Authorizing Provider: PAULINA SEVERINO MD [facility]03-03-2025 Miscellaneous Notes* Telephone Encounter - Paulina Severino [...] 11/18/2024 9:32 AM EST Pharmacy verified in [employer]. Patient has been identified by name and [...] advise. Dixie Peace MA [facility] [place] [facility] Telephone encounter Note * Telephone Encounter - Dixie Peace MA - 11/18/2024 9:32 AM EST Pharmacy verified in [employer]. Patient has been identified by name and [...] 06/27/2024 10.2 Please advise. Dixie Peace MA [facility]02-27-2025 Telephone encounter Note* Telephone Encounter - Joan Rodriguez - 11/16/2024 8:29 AM EST Pt is already scheduled on November 23 at 2pm with you in [place]. Is that ok with you or do I need to move him to November 27 at 4pm to make it a 40 minute appointment for a hospital follow up? Please let me know. Thank you, Joan Rodriguez [facility]02-27-2025 Miscellaneous Notes* Telephone Encounter - Joan Rodriguez [...] in the office after recent hospitalization at [facility]. He needs vascular surgery at some point but I need to see him to assess timing. Please see if he can come to [place] office November 27 at 4 PM. Thanks I will send a copy of this note to Dr. Villalpando who is the vascular surgeon Davin Moran MD [facility] [place] [facility] Telephone encounter Note * Telephone Encounter - Davin Moran MD - 11/16/2024 7:32 AM EST Patient needs to see me in the office after recent hospitalization at [facility]. He needs vascular surgery at some point but I need to see him to assess timing. Please see if he can come to [place] office November 27 at 4 PM. Thanks I will send a copy of this note to Dr. 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 Patient discharged from [facility] Discharge date: 11/04/2024 Home w self care Admitted for: NSTEMI, GA, Lradial artery dissection, Acut LUE thrombophlebitis Readmission Risk: Not specified Value-Based Contract: Non-Value Based Contact: Contact made with patient: Yes Hi, my name is Loren Wolfe RN, I am calling from the [facility] on behalf of your Primary Care Provider, [...] like to speak with a social work water team leader to help give you support for any [...] I will send your request to a dental scheduler who will contact and assist you with [...] 15, 2024 2:51 PM [facility] [place] [facility] History of Present illness Narrative* Lyubov Hernandez APRN.PIANO MECHANIC - 11/08/2024 2:55 PM EST Images from [...] any family members present at today's visit. [facility] Hospital discharge summary as follows: Mr. Hathaway is a 73-year-old with a profound history of vascular disease including CAD (s/p AL, MARVIN x2 to RCA 1998, type II NSTEMI 08/2023), extensive vasculopathy (C/B B/L AKA, on chronic rivaroxaban+ clopidogrel) who presented with atypical chest pain and GI symptoms, found to have ST changes on EKG (<1 mm elevation in AVR, diffuse ST depression/T wave inversion) in the setting of hypertension and transferred from [place] to [facility] Main [place] C[facility]. While in the unit, it was [...] redness/swelling, no drainage. Has follow-up scheduled with curriculum facilitator and negative turner apprentice. Reviewed medication changes as follows, tolerating well: [...] occlusive disease (HCC) Atherosclerotic heart disease of [place] coronary artery without angina pectoris Carotid artery occlusion Carotid artery stenosis Cerebrovascular accident (CVA) (HCC) Coronary arteriosclerosis [place] 1998 Depressive disorder Disc disorder of lumbar [...] is on insulin Blood-Glucose Meter,Continuous (DEXCOM G7 NEWS ANALYST) misc Check glucose throughout the day. Patient [...] follow-up with nephrology as scheduled Lyubov Hernandez APRN.PIANO MECHANIC documented in this encounterEast [facility] Regional Hospital02-17-2025 [facility]02-17-2025 History of Present illness Narrative* Jodi Francis RN - 11/06/2024 2:08 PM EST Yard Pipe Grader Management TCM Outreach PCP Update / Actionable [...] prosthesis A;ll questions/concerns addressed Patient discharged from [facility] Discharge date: 11/04/24 Admitted for: CP transferred from [place] to [facility] for NSTEMI S/p [facility] PCI of RCA Post procedure hematoma with Left Radial Disection Readmission Risk: 25 Value-Based Contract: Non-Value Based Contact: Contact made with patient: Yes TCM Eligibility Documentation Program: Transitional Care Management Status: Readmitted TCM Readmitted - Internal Effective Dates: 10/09/2024 - 10/19/2024 Responsible Staff: Lizzie Ramirez RNlumber salvager Management Status: Cancelled TCM Cancelled - No longer eligible Effective Dates: unknown - 11/06/2024 Responsible Staff: No information to display Discharge date: 11/05/2024 (Program start) Date of initial contact: 11/06/2024 Initial contact Target status: Not completed Hi, my name is Jodi Francis RN and I am calling from the [facility] on behalf of your Primary Care Provider, [...] like to speak with a social work water team leader to help give you support for any [...] I will send your request to a dental scheduler who will contact and assist you with [...] 06, 2024 2:32 PM documented in this encounterEast Ohio Regional Hospital02-15-2025 [facility]Ge[facility]02-15-2025 [facility]02-14-2025 [facility]02-14-2025 [facility]02-13-2025 Note [facility]-12-2025 [facility]02-11-2025 [facility]02-10-2025 [facility] 10-30-2024 [facility]Ge[facility]02-09-2025 [facility]02-08-2025 [facility]Ge[facility]02-08-2025 NoteHNO ID: [id number] Author: NOTE, INTERFACE, ? Service: ? Author Type: ? Type: Progress Notes Filed: 10/28/2024 02:45 Note Text: Epic Scheduled Downtime: 10/28/2024 1:00:00 AM to 10/28/2024 2:36:00 [facility]02-07-2025 [facility]Ge[facility]02-07-2025 Note [facility]-2025 [facility]02-06-2025 [facility]02-05-2025 [facility] 10-25-2024 [facility]02-04-2025 [facility]02-04-2025 [facility]02-04-2025 [facility]02-03-2025 [facility]02-03-2025 Note [facility]-02-2025 [facility]02-01-2025 [facility]01-31-2025 [facility] 10-20-2024 [facility]01-30-2025 [facility]01-20-2025 [facility]01-20-2025 History of Present illness Narrative* Lyubov Hernandez APRN.PIANO MECHANIC - 10/09/2024 1:19 PM EST Transitional Care Management TCM Eligibility Documentation Program: Transitional Care Management Status: Enrolled Effective Dates: 10/09/2024 - present Responsible Staff: Lizzie Ramirez RN Discharge date: 10/06/2024 (Program start) [...] occlusive disease (HCC) Atherosclerotic heart disease of [place] coronary artery without angina pectoris Carotid artery occlusion Carotid artery stenosis Cerebrovascular accident (CVA) (HCC) Coronary arteriosclerosis [place] 1998 Depressive disorder Disc disorder of lumbar [...] by mouth once daily flash glucose sensor (Catch MediaSTYLE CL 2 SENSOR) kit Apply new sensor [...] tablet by mouth once daily. Blood-Glucose Sensor (Moodyo G7 SENSOR) katlyn 1 Each every 2 weeks. Patient is on insulin Blood-Glucose Meter,Continuous (DEXCOM G7 NEWS ANALYST) [facility] Check glucose throughout [...] hyperkalemia. Provider will reach out to cardiology ENGAGEMENT LIAISON for update and any other recommendations as patient is not scheduled with negative turner apprentice for 3 months. Lyubov Hernandez APRN.PIANO MECHANIC * Sandy Vega MA - 10/09/2024 1:14 PM EST Depression Screening Never done Anxiety Screening Never done Hepatitis C Screening Never done Dilated Retinal Exam due on 11/26/2023 Advance Directive Discussion Never done documented in this encounterEast Ohio Regional Hospital01-20-2025 [facility]Ge[facility]01-20-2025 Instructions* Patient Instructions* Sandy Vega MA - 10/09/2024 1:14 PM EST [facility] BUILDING LAB TEST INFORMATION [facility] BUILDING LAB HOURS: Lab is open: 7:30am to 5:00pm M - Th, 7:30am to 4:00pm onFri and 8am -12pm on Sat. The lab is located in [facility] on the first floor. There is a registration window at the lab, available 7 am to 3 pm Wednesday - Wednesday. If registration is unavailable at the lab, you may register at the patient registration office near the front [facility]. SCHEDULING A LAB APPOINTMENT: Laboratory appointments are recommended.Walk ins are still accepted. Call [phone] or schedule via [employer] scheduling ticket. ROUTINE LAB ORDERS 60 days [...] REFILL REQUESTS Request prescription refills through your [employer] account or contact your Pharmacy. My Chart Schedule My Appointment enables you to view your established primary care provider's open schedule and book an appointment online in real-time. This feature is available in internal medicine, family medicine, or pediatrics at any of our [facility] hospital locations and main campus. documented in this encounterEast Ohio Regional Hospital01-20-2025 [facility]Ge[facility]01-17-2025 NoteHNO ID: [id number] Author: HODAN GALLARDO RN Service: Care Management [...] Physician Primary Care Physician Name/Phone: Paulina Severino MD/[phone] Discharge order is written. RN CM met [...] Hathaway DATE: October 06, 2024 TIME: 12:29 PMSum[facility] [id number] NoteHNO ID: [id number] Author: KENNETH ANTUNEZ MD Service: Hospital Medicine Author Type: Physician Type: Progress Notes Filed: 10/05/2024 15:39 Note Text: DEPARTMENT OF HOSPITAL MEDICINE PROGRESS NOTE SERVICE DATE: 10/05/2024 SERVICE TIME: 3:28 PM Hospital Medicine/Primary Attending: Darron Valentino MD NIGHT AND WEEKEND COVERAGE: [place] COVERAGE: Days: [phone], please page attending physician. Nights: [phone], please page [facility] Hospitalist Night coverage pager [phone]. Subjective INTERVAL HPI: - seen in the [...] Forearm 20 Gauge 1 day Peripheral [id number] [facility] Left Forearm 20 Gauge 1 day Reviewed lines and needs to be continued: REASONS: Telemetry DATA: Diagnostic tests reviewed for today's visit: Most recent labs Most recent imaging Assessment/Plan Problem List Assessment AND Plan PVD (peripheral vascular disease) (HCC) Type 2 DM with CKD stage 3 and hypertension (HCC) GA (acute kidney injury) ([facility]) Obesity, Class III, BMI >= [...] and statin - ok to transfer to [facility] Morbid Obesity Class 3 Medication and Non-Pharmacologic [...] 10/03/241911 -- 10/03/241914 activity - mobilize patient (id,sc) VTE Prophylaxis: VTE prophylaxis appropriate Disposition: To be determined Plan of care discussed with Patient and RN Plan communicated to: N/A SIGNATURE: Kenneth Antunez MD PATIENT NAME: Shilo Hathaway DATE: October 05, 2024 TIME: 3:16 PMSumma [facility] Medical [id number] NoteHNO ID: [id number] Author: DARRON VALENTINO MD Service: Critical Care [...] CAD, essential tremor, INOCENCIA, CVA, HTN, HLD, AL, PVD s/p b/l AKA, DM2, CHANTELL, presented [...] on 10/05/2024 Darron Valentino MD 1:10 PM 10/05/2024[facility] [id number] NoteHNO ID: [id number] Author: LIDYA IBRAHIM RN Service: Care Management Author Type: Registered Nurse Type: Care Mgt Initial Assessment Filed: 10/04/2024 14:16 Note Text: CARE MANAGEMENT: ASSESSMENT AND DISCHARGE PLAN SERVICE DATE: October 04, 2024 SERVICE TIME: 2:13 PM PCP: Paulina Severino MD--Confirmed Primary Contact: Extended Emergency Contact Information Primary Emergency Contact: Rylee Hathaway Mobile Relation: Spouse Secondary Emergency Contact: rylee hathaway Address: [address] [place] [id number] [place] [address] Mobile Relation: Spouse Admission Status: Inpatient Insurance Provider: UHC AARP MEDICARE HMO Discharge Planning requested by: Per Department Practice Potential Transition Plans No Services Indicated Advance Directives Current Advance Directive: Health Care Power of Panel Wirer;Living Will In Chart: No No Bake Molder Attempted to Assist with AD Completion: Yes [...] Be able to go home, General wellness Harleigh of Choice Explained: Harleigh of Choice Given: No Reason Not Given: No placements necessary Are you interested in bedside delivery of your medications? No [facility] in [place]. Discharge Planning Participant(s): Patient Patient/Family Comments: Caregiver [...] kidney/bladder is pending. Hx of PVD, CVA, AL, and bilateral AKA. Patient is from home with Spouse. Uses manual WC to ambulate. No active services in the home. Spouse to provide transport upon discharge. CM instructed patient that CM team will remain available for any dc needs. SIGNATURE: Lidya Ibrahim RN PATIENT NAME: Shilo Hathaway DATE: October 04, 2024 TIME: 2:13 PMSumma Health Wadsworth - Rittman Medical [id number] NoteHNO ID: [id number] Author: DARRON VALENTINO MD Service: Critical Care [...] CAD, essential tremor, INOCENCIA, CVA, HTN, HLD, AL, PVD s/p b/l AKA, DM2, CHANTELL, presented [...] on 10/04/2024 Darron Valentino MD 11:55 AM 10/04/2024[facility] Medical [id number] Telephone encounter Note* Telephone Encounter - Lyubov Hernandez APRN.CNP - 10/03/2024 3:51 PM EST Provider called patient with new critical lab result, potassium 6.8. Patient just returned home from the lab, provider advised him to go to the ER immediately. Patient states that his bicycle taxi driver was still there and would transport him to [facility]. Lyubov Hernandez APRN.CNP [facility]01-14-2025 Miscellaneous Notes* Telephone Encounter - Lyubov Hernandez APRN.CNP - 10/03/2024 3:51 PM EST Provider called patient with new critical lab result, potassium 6.8. Patient just returned home from the lab, provider advised him to go to the ER immediately. Patient states that his bicycle taxi driver was still there and would transport him to [facility]. Lyubov Hernandez APRN.CNP * Telephone Encounter - Corrina Cortes - 10/03/2024 2:32 PM EST Patient called back to confirm location - he was notified per Lyubov to go to the lab at either [facility] or [facility]. He is going to [facility]. * Telephone Encounter - Lyubov Hernandez [...] last night and was recommended by the pharmacy operations coordinator physician to go to the ER, but I do not see any ER visits in [facility]. Please call patient to see if he went to an outside ER last night. If not, I need him to get repeat Stat labs immediately, and the only options for Stat labs through the [facility] are [facility] or [facility] in [place] Lyubov Hernandez APRN.NATHALY documented in this encounterEast Ohio Regional Hospital01-14-2025 Telephone encounter Note * Telephone Encounter - Corrina Cortes - 10/03/2024 2:32 PM EST Patient called back to confirm location - he was notified per Lyubov to go to the lab at either [facility] or [facility]. He is going to [facility]. [facility]01-14-2025 Telephone encounter Note* Telephone Encounter - Lyubov [...] red flag symptoms. Patient verbalized understanding. Lyubov Hernnadez APRN.NATHALY [facility]01-14-2025 Telephone encounter Note* Telephone Encounter - Savana Teran RN - 10/03/2024 11:07 AM EST Called patient regarding message below, no answer. Left message to call office back. RN please try again later Savana Teran RN [facility]01-14-2025 Telephone encounter Note* Telephone Encounter - Jonathan Lambert DO - 10/03/2024 11:01 AM EST Received page at 8:11pm Hi K 6.1 Contacted pt immediately recommended pt evaluated in ED It appears pt did not go to ED, discussed with Lyubov Hernandez ENGAGEMENT LIAISON stat bmp ordered, pt will hold his aldactone until evaluated, monitor bp at home [facility]01-14-2025 Miscellaneous Notes* Telephone Encounter - Jonathan Lambert DO - 10/03/2024 11:01 AM EST Received page at 8:11pm Hi K 6.1 Contacted pt immediately recommended pt evaluated in ED It appears pt did not go to ED, discussed with Lyubov Hernandez ENGAGEMENT LIAISON stat bmp ordered, pt will hold his aldactone until evaluated, monitor bp at home documented in this encounterEast Ohio Regional Hospital01-14-2025 Telephone encounter Note * Telephone Encounter - Lyubov Hernandez APRN.NATHALY - 10/03/2024 10:57 AM EST Patient had a critically high potassium result last night and was recommended by the pharmacy operations coordinator physician to go to the ER, but I do not see any ER visits in [facility]. Please call patient to see if he went to an outside ER last night. If not, I need him to get repeat Stat labs immediately, and the only options for Stat labs through the [facility] are [facility] or [facility] in [place] Lyubov Hernandez APRN.PIANO MECHANIC [facility]12-12-2024 Miscellaneous Notes* Telephone Encounter - Mellisa Pickett LPN - 08/31/2024 11:18 AM EST Received orders from [employer]. Placed in provider's inbox for review. Route to MA scanning documented in this encounterEast Ohio Regional Hospital12-12-2024 Telephone encounter Note * Telephone Encounter - Mellisa Pickett LPN - 08/31/2024 11:18 AM EST Received orders from [facility]. Placed in provider's inbox for review. Route to MA scanning [facility]12-03-2024 Telephone encounter Note* Telephone Encounter - Minoo Boone LPN - 08/22/2024 2:41 PM EST Received 08/21/2024 from [facility]. Placed in provider's inbox for review. Route to [place] for faxing. [facility]12-03-2024 Miscellaneous Notes* Telephone Encounter - Minoo Boone LPN - 08/22/2024 2:41 PM EST Received 08/21/2024 from [facility]. Placed in provider's inbox for review. Route to [place] for faxing. documented in this encounterEast Ohio Regional Hospital12-03-2024 [facility]Ge[facility]12-03-2024 History of Present illness Narrative* Lyubov Hernandez APRN.PIANO MECHANIC - 08/22/2024 10:57 AM EST Images from [...] Personalized prevention plan provided 2. Atherosclerosis of [place] coronary artery of [place] heart without angina pectoris Stable, follows with [...] revision. Lyubov Hernandez APRN.CNP documented in this encounterEast Ohio Regional Hospital12-03-2024 Instructions* Patient Instructions* Lyubov Hernandez APRN.CNP - [...] review all the medicines you take, even vvud-qnn-gurmoub medicines. As you get older, the way [...] review all the medicines you take, even ktzg-lqq-ruhmedi medicines. As you get older, the way [...] have certain medical conditions. documented in this encounterEast Ohio Regional Hospital11-25-2024 Miscellaneous Notes* Telephone Encounter - Mellisa Pickett LPN - 08/14/2024 11:02 AM EST Received orders from [facility]. Placed in provider's inbox for review. Route to [place] fax documented in this encounterEast Ohio Regional Hospital11-25-2024 Telephone encounter Note * Telephone Encounter - Mellisa Pickett LPN - 08/14/2024 11:02 AM EST Received orders from [facility]. Placed in provider's inbox for review. Route to [place] fax [facility]11-21-2024 Telephone encounter Note* Telephone Encounter - Minoo Boone LPN - 08/10/2024 2:15 PM EST Left message for patient that he is due for his medicare wellness before the end of the year. [facility]11-21-2024 Miscellaneous Notes* Telephone Encounter - Minoo Boone LPN - 08/10/2024 2:15 PM EST Left message for patient that he is due for his medicare wellness before the end of the year. documented in this encounterEast Ohio Regional Hospital11-08-2024 Telephone encounter Note * Telephone Encounter - Wendie Pryor - 07/28/2024 3:52 PM EST Thank you, I will touch base with him! [facility]11-08-2024 Miscellaneous Notes* Telephone Encounter - Wendie Pryor [...] it's currently inpending status. documented in this encounterEast Ohio Regional Hospital11-08-2024 Telephone encounter Note * Telephone Encounter - Lyn Robin MA - 07/28/2024 3:48 PM EST Patient called in and I informed him that surgery is still pending. He said thank you! He also wants to know if surgery is possible before the end of the year? I told him I would pass along this message. Lyn Robin MA [facility]11-08-2024 Telephone encounter Note* Telephone Encounter - Wendie Pryor - 07/28/2024 3:09 PM EST Patient called to inquire about authorization for surgery. Called to let him know it's currently inpending status. [facility]11-05-2024 [facility]Ge[facility]11-05-2024 History of Present illness Narrative* Lyubov Hernandez APRN.PIANO MECHANIC - 07/25/2024 1:44 PM EST This note was created using [employer] Smart Systems[employer]. Subjective Shilo Hathaway is a 73 year old male. Patient with URI symptoms x 3 days. Hasn't taken any OTC medications, just honey and cepacol lozenges, whiskey. DMII: Dexcom broke, using finger stick glucometer over the last week, waiting on [employer] to mail lidia new meter. Fasting this [...] occlusive disease (HCC) Atherosclerotic heart disease of [place] coronary artery without angina pectoris Carotid artery occlusion Carotid artery stenosis Cerebrovascular accident (CVA) (HCC) Coronary arteriosclerosis [place] 1998 Depressive disorder Disc disorder of lumbar [...] is on insulin Blood-Glucose Meter,Continuous (DEXCOM G7 NEWS ANALYST) misc Check glucose throughout the day. Patient [...] for blood sugars >250. May communicate via [employer] over the next 2months with updated blood sugar readings once he has Dexcom meter again, likely need to get better control before plastic surgeon to proceed with elective procedure. - TRESIBA FLEXTOUCH U-100 100 unit/mL (3 mL) injection pen; Inject 28 Units subcutaneously daily atbedtime. Dispense: 15 mL; Refill: 3 Lyubov Hernandez APRN.NATHALY documented in this encounterEast Ohio Regional Hospital10-30-2024 Telephone encounter Note * Telephone Encounter - Loan Serra LPN - 07/19/2024 4:14 PM EDT Spoke with patient about test results and recommendations to continue current regimen and follow up. Patient verbalizes understanding and is agreeable. Loan Serra LPN [facility]10-30-2024 Miscellaneous Notes* Telephone Encounter - Loan Serra [...] you, Eduin Coleman APRN.NATHALY documented in this encounterEast Ohio Regional Hospital10-30-2024 Telephone encounter Note * Telephone Encounter - [...] follow up. Thank you, Eduin Coleman APRN.NATHALY [facility] Work Phone: [phone] Telephone encounter Note* Telephone Encounter - Archana Child - 07/14/2024 11:10 AM EDT Jo Ann Owens- called to request the office notes be faxed from recent office visit. Faxed to number [phone] [facility]10-25-2024 Miscellaneous Notes* Telephone Encounter - Archana Child - 07/14/2024 11:10 AM EDT Jo Ann Owens- called to request the office notes be faxed from recent office visit. Faxed to number [phone] documented in this encounterEast Ohio Regional Hospital10-23-2024 Instructions* Patient Instructions* Eduin Coleman APRN.NATHALY - 07/12/2024 2:21 PM EDT Continue current regimen. Please call and get your echocardiogram scheduled and completed. Follow up in 6 months with [facility] or Dr. Moran. Please call if you have any questions or concerns. documented in this encounterEast Ohio Regional Hospital10-23-2024 History of Present illness Narrative* Eduin Coleman APRN.CNP - 07/12/2024 2:00 PM EDT PRIMARY CARE PHYSICIAN: Paulina Severino [address] [place] [address] [place] [address] Chief Complaint Patient presents with: Cardiology Follow [...] this time patient previously saw a different negative turner apprentice at outside hospital in which she was [...] once daily. 90 tablet 3 Blood-Glucose Sensor ([employer]ty [employer] G7 SENSOR) katlyn 1 Each every 2 weeks. Patient is on insulin 6 Each 3 Blood-Glucose Meter,Continuous (DEXCOM G7 NEWS ANALYST) misc Check glucose throughout the day. Patient [...] HFrEF (heart failure with reduced ejection fraction) ([facility]) - ICD9: 428.20, ICD10: I50.20 [...] 2 L fluid restriction. 2. Atherosclerosis of [place] coronary artery of [place] heart without angina pectoris - ICD9: 414.01, [...] and diet 4. PAD (peripheral artery disease) ([facility]) - ICD9: 443.9, ICD10: I73.9 [...] -Personal history -Continue current regimen Eduin Coleman APRN.PIANO MECHANIC Plan: Echo ordered, follow-up in 6 months [...] have confirmed and edited as necessary the [facility] and information obtained by others. Reviewed with patient to call office regarding symptoms and reviewed with patient that if the patient begins having increasing symptoms or if their symptoms became worse in severity to call 911 and present to the closest emergency or urgent care department for further evaluation. documented in this encounterEast Ohio Regional Hospital10-23-2024 [facility]10-23-2024 Nurse Note* Karen Serra MA - 07/12/2024 1:52 PM EDT Patient has no cardiac complaints today. Karen Serra CMA [facility]10-23-2024 Nurse Note* Karen Serra MA - 07/12/2024 1:52 PM EDT Patient has no cardiac complaints today. Karen Pat DENTURES LAB TECHNICIAN documented in this encounterEast Ohio Regional Hospital10-22-2024 History of Present illness Narrative* Thierry Rush MD - 07/11/2024 1:30 PM EDT Images from the original note were not included. Thierry Rush [address] [facility] [address] [place] [address] Plastic Surgery New Office Note CC: Leg Pain HPI: Shilo is a 73 year old male with history of above knee amputation here today with leg pain. Hasbilateral phantom pain, right with more pain/phantom than left. Right is so painful unable to tolerate prosthetic. Constant. Worsens when resting. PAST MEDICAL HISTORY Diagnosis Date Aortoiliac occlusive disease (HCC) Atherosclerotic heart disease of [place] coronary artery without angina pectoris Carotid artery occlusion Carotid artery stenosis Cerebrovascular accident (CVA) (HCC) Coronary arteriosclerosis [place] 1998 Depressive disorder Disc disorder of lumbar [...] tablet by mouth once daily. Blood-Glucose Sensor (Moodyo G7 SENSOR) katlyn 1 Each every 2 weeks. Patient is on insulin Blood-Glucose Meter,Continuous (DEXCOM G7 NEWS ANALYST) misc Check glucose throughout the day. Patient [...] anchors, ATT OR Time Needed: 4 hrs Ewing or ASC:[facility] Equipment Request: rapid fire small/medium clips, plastics [...] Past Histories independently gathered by the clinical system support specialist and the remaining scribed note accurately describes my personal service to the patient. documented in this encounter[facility]10-22-2024 [facility]10-22-2024 Miscellaneous Notes* Telephone Encounter - Mellisa Pickett LPN - 07/11/2024 8:53 AM EDT Faxed request to medical records. * Telephone Encounter - Loan Shay - 07/11/2024 8:46 AM EDT [facility] Caller Name: Jessica Call Back Number [phone] Reason for Call: Release of recent H&O Additional Information: Jessica from [facility] is calling to request the most recent H&P to be faxed to them for use in offering virtual service for patient. documented in this encounterEast [facility] Hospital10-22-2024 Telephone encounter Note * Telephone Encounter - Mellisa Pickett LPN - 07/11/2024 8:53 AM EDT Faxed request to medical records. [facility]10-22-2024 Telephone encounter Note* Telephone Encounter - Loan Shay - 07/11/2024 8:46 AM EDT [facility] Caller Name: Jessica Call Back Number [phone] Reason for Call: Release of recent H&O Additional Information: Jessica from [facility] is calling to request the most recent H&P to be faxed to them for use in offering virtual service for patient. [facility] Work Phone: [phone] Telephone encounter Note* Telephone Encounter - Minoo [...] Boone LPN July 10, 2024 3:05 PM [facility]10-21-2024 Miscellaneous Notes* Telephone Encounter - Minoo Boone [...] 10, 2024 3:05 PM documented in this encounterEast [facility] Hospital10-15-2024 Telephone encounter Note * Telephone Encounter - Mellisa Pickett LPN - 07/04/2024 9:27 AM EDT [facility] from [facility]. Placed in provider's inbox for review. Route to MA fax [facility]10-15-2024 Miscellaneous Notes* Telephone Encounter - Mellisa Pickett LPN - 07/04/2024 9:27 AM EDT Received orders from [facility]. Placed in provider's inbox for review. Route to MA fax documented in this encounterEast [facility] Hospital10-11-2024 Telephone encounter Note * Telephone Encounter - Minoo Boone LPN - 06/30/2024 3:21 PM EDT Faxed. Confirmation received. [facility]10-11-2024 Miscellaneous Notes* Telephone Encounter - Minoo Boone LPN - 06/30/2024 3:21 PM EDT Faxed. Confirmation received. documented in this encounterEast [facility] Hospital10-08-2024 [facility] History of Present illness Narrative* Lyubov Hernandez APRN.PIANO MECHANIC - 06/27/2024 1:44 PM EDT This note was created using Alpha Smart Systemsriter. Subjective Shilo Hathaway is a 73 year [...] occlusive disease (HCC) Atherosclerotic heart disease of [place] coronary artery without angina pectoris Carotid artery occlusion Carotid artery stenosis Cerebrovascular accident (CVA) (HCC) Coronary arteriosclerosis [place] 1998 Depressive disorder Disc disorder of lumbar [...] is on insulin Blood-Glucose Meter,Continuous (DEXCOM G7 NEWS ANALYST) misc Check glucose throughout the day. Patient [...] (COMIRNATY) Lyubov Hernandez APRN.CNP documented in this encounterEast [facility] Hospital09-30-2024 Telephone encounter Note * Telephone Encounter - Minoo Boone LPN - 06/19/2024 4:14 PM EDT Fax [phone] [facility]09-30-2024 Miscellaneous Notes* Telephone Encounter - Minoo Boone LPN - 06/19/2024 4:14 PM EDT Fax [phone] documented in this encounterEast [facility] Regional Hospital09-24-2024 NoteHNO ID: [id number] Author: LYUBOV HERNANDEZ APRN.NATHALY Service: ? Author Type: Nurse Practitioner Type: Progress Notes Filed: 06/13/2024 10:52 Note Text: Lisinopril sent to pharmacy Lyubov Hernandez APRN.CNPGeorgetown Behavioral Hospital09-18-2024 Telephone encounter Note* Telephone Encounter - Mellisa Pickett LPN - 06/07/2024 2:34 PM EDT Office notes faxed. [facility]09-18-2024 Miscellaneous Notes* Telephone Encounter - Mellisa Pickett LPN - 06/07/2024 2:34 PM EDT Office notes faxed. * Telephone Encounter - [place] Corrina Diego - 06/07/2024 2:01 PM EDT Shilo is a patient of MD adam Hall, [employer] Rep from [facility] called to request the most recent office visit notes are faxed to her. Please fax to: [phone] Patient has been identified by name and birthdate. Duration of symptoms: N/A Person calling: [facility] Was an appointment scheduled: No Closing statement: Results or non-symptom based questions: Thank you for calling [facility], your call will be returned within the next business day. Corrina Diego documented in this encounterEast Ohio Regional Hospital09-18-2024 Telephone encounter Note * Telephone Encounter - Corrina Cortes - 06/07/2024 2:01 PM EDT Shilo is a patient of MD adam Hall Graciela, [employer] Rep from [facility] called to request the most recent office visit notes are faxed to her. Please fax to: [phone] Patient has been identified by name and birthdate. Duration of symptoms: N/A Person calling: [facility] Was an appointment scheduled: No Closing statement: Results or non-symptom based questions: Thank you for calling [facility], your call will be returned within the next business day. Corrina Jensen Pss [facility]09-18-2024 [facility]Ge[facility]09-18-2024 History of Present illness Narrative* Ronna Leger RN - 06/07/2024 12:38 PM EDT ACM DRAKE RN Reason for review or outreach: Medication Adherence review per request of [facility] Medication Adherence Review Details: Cholesterol and Hypertension FYI / ACTION REQUEST: Patient identified by name and date of Summary/Findings of review: Rosuvastatin was due for a refill on 01/19/24 at [facility] Lisinopril was due for a refill 05/12/24 at [facility] Patient Attributed To: QAE Payer: [facility] Action Taken: Data submitted to [facility] [employer] message to patient Other Contact made with patient: No, Chart review only. Signature: Ronna Leger, RN documented in this encounterEast Ohio Regional Hospital09-18-2024 Telephone encounter Note * Telephone Encounter - Lyubov Prado APRN.CNP - 06/07/2024 10:02 AM EDT Please fax paperwork, placed in outbox Lyubov Prado APRN.CNP [facility]09-18-2024 Miscellaneous Notes* Telephone Encounter - Lyubov Prado APRN.CNP - 06/07/2024 10:02 AM EDT Please fax paperwork, placed in outbox Lyubov Prado APRN.CNP documented in this encounterEast Ohio Regional Hospital09-17-2024 Telephone encounter Note * Telephone Encounter - Deann Rasheed - 06/06/2024 3:41 PM EDT I have sent the referral to Plastic Surgery via the portal with a confirmation of [id number] [facility]09-17-2024 Miscellaneous Notes* Telephone Encounter - Deann Rasheed - 06/06/2024 3:41 PM EDT I have sent the referral to Plastic Surgery via the portal with a confirmation of [id number] documented in this encounterEast Ohio Regional Hospital09-17-2024 [facility]09-17-2024 History of Present illness Narrative* Elizabeth Ball APRN.CNP - 06/06/2024 3:30 PM EDT Shilo Hathaway 73 year old male here for follow-up Carotid Stenosis & PAD He has undergone the following procedure: - Attempted ABF -- 2016 DJW - R Ax- fem / R fem- L fem bypass with B HEAD OF DATA endart -- 2016 DJW - L groin [...] his R amputation done just before last [place]. He had been working with [employer] on his prosthetic since his L AKA, but was having a very difficult time so he switched to [employer]. He's had very good success with [employer] and is very pleased with their care [...] asa, plavix, xarelto, statin. +CAD, HLD, HTN, AL (1998), DM, Carotid ASO Former smoker - quit in 1998. 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 Carotid artery occlusion Carotid artery stenosis Cerebrovascular accident (CVA) ([facility]) Coronary arteriosclerosis [place] 1998 Depressive disorder Disc disorder of lumbar region Diverticulitis of colon Diverticulitis of colon Essential tremor Gastroesophageal reflux disease Generalized anxiety disorder Hiatal hernia History of myocardial infarction Hyperlipidemia Hypertension Intervertebral disc disorder of lumbar region with myelopathy Irritable bowel syndrome Myocardial infarction (HCC) Old myocardial infarction Peripheral vascular disease ([facility]) PERS HX COLONIC POLYPS Preoperative testing 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 Patient [...] prosthetics and pt is VERY happy with [employer]! Plan: CONSULT TO PLASTIC SURGERY- Dr. Rush [...] with more than 50% of the total [id number]-hwyn time of the visit in counseling / coordination of care. Elizabeth Ball APRN.PIANO MECHANIC documented in this encounterEast [facility] Regional Hospital09-04-2024 History of Present illness Narrative* Zaynab Candelario, [...] PATIENT PRESENTS WITH AN IMPLANTABLE OR ATTACHED CARDIAC SONOGRAPHER: No RADIOLOGY DEPARTMENT: Ultrasound PERIPHERAL IV DATA: Not applicable SIGNED BY: RT Karie(R) May 24, 2024 10:23 AM documented in this encounterEast Ohio Regional Hospital09-04-2024 [facility]07-31-2024 Telephone encounter Note* Telephone Encounter - Savana Teran RN - 04/19/2024 1:47 PM EDT Discussed with patient-he agrees to plan. Will also watch diet for high K+ foods. Savana Teran RN [facility]07-31-2024 Miscellaneous Notes* Telephone Encounter - Savana Teran [...] lab? Lyubov Prado APRN.CNP documented in this encounterEast Ohio Regional Hospital07-31-2024 Telephone encounter Note * Telephone Encounter - Lyubov Prado APRN.CNP - 04/19/2024 1:38 PM EDT Let patient know that his potassium was elevated and I'd like him to have it rechecked in one week,will that be a problem for him to get to the lab? Lyubov Prado APRN.CNP [facility]07-23-2024 Telephone encounter Note* Telephone Encounter - Jessica Duff - 04/11/2024 11:59 AM EDT Changed appointment time [facility]07-23-2024 Miscellaneous Notes* Telephone Encounter - Jessica Duff - 04/11/2024 11:59 AM EDT Changed appointment time * Telephone Encounter - Lyubov Prado APRN.CNP - 04/11/2024 11:45 AM EDT Please change patient's appointment on 06/27 to 40 minute established well for Medicare Wellness exam Lyubov Prado APRN.CNP documented in this encounterEast Ohio Regional Hospital07-23-2024 Telephone encounter Note * Telephone Encounter - Lyubov Prado APRN.CNP - 04/11/2024 11:45 AM EDT Please change patient's appointment on 06/27 to 40 minute established well for Medicare Wellness exam Lyubov Prado APRN.CNP [facility]07-08-2024 History of Present illness Narrative* Lyubov Prado APRN.CNP - 03/27/2024 1:33 PM EDT This note was created using Alpha Smart Systemsriter. Subjective Shilo Hathaway is a 73 year [...] remember the last time he saw a negative turner apprentice outpatient, just in the hospital. History of [...] occlusive disease (HCC) Atherosclerotic heart disease of [place] coronary artery without angina pectoris Carotid artery occlusion Carotid artery stenosis Cerebrovascular accident (CVA) (HCC) Coronary arteriosclerosis AL 1998 Depressive disorder Disc disorder of lumbar [...] capsule by mouth once daily. Blood-Glucose Sensor ([employer] G7 SENSOR) katlyn 1 Each every 2 weeks. Patient is on insulin Blood-Glucose Meter,Continuous (DEXCOM G7 NEWS ANALYST) misc Check glucose throughout the day. Patient [...] gangrene, with long-term current use of insulin ([facility]) Stable, above goal. Work on [...] Refill: 2 3. PAD (peripheral artery disease) ([facility]) Stable, follows with vascular. 4. Status post above-knee amputation of both lower extremities ([facility]) Working with [employer] to get bilateral prosthetics. 5. HFrEF (heart failure with reduced ejection fraction) ([facility]) No recent outpatient cardiology follow-up, recommend to re-establish care. - CONSULT TO CARDIOLOGY; Future 6. Coronary arteriosclerosis - CONSULT TO CARDIOLOGY; Future Lyubov Prado APRN.CNP documented in this encounterEast Ohio Regional Hospital06-28-2024 Telephone encounter Note * Telephone Encounter - [...] comes in, it would be greatly appreciated. [facility]06-28-2024 Miscellaneous Notes* Telephone Encounter - Archana Child [...] Dr. Severino to Lyubov documented in this encounterEast Ohio Regional Hospital06-28-2024 Telephone encounter Note * Telephone Encounter - No Marin - 03/17/2024 11:40 AM EDT 2nd attempt, tried to call patient and phone didn't ring [facility]06-26-2024 Telephone encounter Note* Telephone Encounter - Jessica Duff - 03/15/2024 3:33 PM EDT 1st attempt. Left [employer] message letting patient know that appointment was rescheduled from Dr. Severino to Lyubov [facility]06-18-2024 Note* Addendum Note - Lyubov Prado APRN.CNP - 03/07/2024 11:15 AM EDTAddended by: LYUBOV PRADO on: 03/07/2024 11:15 AM Modules accepted: Orders [facility]06-18-2024 Telephone encounter Note* Telephone Encounter - Lyubov Prado APRN.CNP - 03/07/2024 11:15 AM EDT Amlodipine sent. Lyubov Prado APRN.NATHALY Requested Prescriptions Signed Prescriptions Disp Refills amLODIPine (NORVASC) 5 mg tablet 30 tablet 2 Sig: Take 1 tablet by mouth once daily. Authorizing Provider: LYUBOV PRADO Pharmacy Information Pharmacy Address Telephone [place] [id number] [place], [place] [address] [facility]06-18-2024 Miscellaneous Notes* Addendum Note - Lyubov Prado [...] LYUBOV PRADO Pharmacy Information Pharmacy Address Telephone [facility] [place], [place] [address] * Telephone Encounter - Kate Ruiz RN [...] 25 mg If need to reach her [phone] * Telephone Encounter - Kate Ruiz RN - 03/07/2024 9:21 AM EDT Spoke to [place], gave message below, to CB with any questions. * Telephone Encounter - Kate Ruiz RN - 03/07/2024 8:50 AM EDT Facility asked that nurse get a CB in 10 minutes. * Telephone Encounter - Tayler Vuong RN - 03/06/2024 4:44 PM EDT Called [phone] with desk to call us back to verify meds * Telephone Encounter - Lyubov Prado APRN.CNP - 03/06/2024 4:27 PM EDT From what I can see, his current blood pressure medications are as follows: lisinopril 5 mg once daily, metoprolol 25 mg once daily, spironolactone 25 mg daily. Lyubov Prado APRN.NATHALY * Telephone Encounter - Archana Child - 03/06/2024 12:01 PM EDT [facility] is calling Paulina Severino MD today with [...] Duration of symptoms: N/A Person calling: Dixie [phone] Was an appointment scheduled: No Closing statement: Results or non-symptom based questions: Thank you for calling [facility], your call will be returned within the next business day. Archana Child documented in this encounterEast Ohio Regional Hospital06-18-2024 Telephone encounter Note * Telephone Encounter - Kate Ruiz RN - 03/07/2024 11:10 AM EDT Spoke to Dixie, the Amlodipine was requesting to be refilled, an empty bottle was found, request was made to refill per Dixie. FYI [facility]06-18-2024 Telephone encounter Note* Telephone Encounter - Kate Ruiz RN - 03/07/2024 10:49 AM EDT Spoke to patient, called to reinforce making sure he takes his BP meds. Patient states he did speak to his [employer] Caller yesterday, the rx are straightened out, he [...] Protocols used: Information Only Call - No [id number] [facility]06-18-2024 Miscellaneous Notes* Telephone Encounter - Kate Ruiz RN - 03/07/2024 10:49 AM EDT Spoke to patient, called to reinforce making sure he takes his BP meds. Patient states he did speak to his [employer] Caller yesterday, the rx are straightened out, he [...] Protocols used: Information Only Call - No [id number] documented in this encounterEast Ohio Regional Hospital06-18-2024 Telephone encounter Note * Telephone Encounter - Kate Ruiz RN - 03/07/2024 10:46 AM EDT Dixie left a message with the meds he will be taking. Amlodipine 5 mg Lisinopril 5 mg Spironolactone 25 mg Metoprolol 25 mg If need to reach her [phone] [facility]06-18-2024 Telephone encounter Note* Telephone Encounter - Mellisa Pickett LPN - 03/07/2024 10:10 AM EDT Received comprehensive visit summary from [place]. Placed in provider's inbox for review. Route to MA scanning [facility]06-18-2024 Miscellaneous Notes* Telephone Encounter - Mellisa Pickett LPN - 03/07/2024 10:10 AM EDT Received comprehensive visit summary from [place]. Placed in provider's inbox for review. Route to MA scanning documented in this encounterEast Ohio Regional Hospital06-18-2024 Telephone encounter Note * Telephone Encounter - Kate Ruiz RN - 03/07/2024 9:21 AM EDT Spoke to [place], gave message below, to CB with any questions. [facility]06-[facility] Telephone encounter Note* Telephone Encounter - Kate Ruiz RN - 03/07/2024 8:50 AM EDT Facility asked that nurse get a CB in 10 minutes. [facility]06-17-20[facility] Telephone encounter Note* Telephone Encounter - Tayler Vuong RN - 03/06/2024 4:44 PM EDT Called [phone] with desk to call us back to verify meds [facility]06-17-2024 Telephone encounter Note* Telephone Encounter - Lyubov Prado APRN.CNP - 03/06/2024 4:27 PM EDT From what I can see, his current blood pressure medications are as follows: lisinopril 5 mg once daily, metoprolol 25 mg once daily, spironolactone 25 mg daily. Lyubov Prado APRN.NATHALY [facility]06-17-2024 Telephone encounter Note* Telephone Encounter - Archana Child - 03/06/2024 12:01 PM EDT [facility] is calling Paulina Severino MD today with [...] Duration of symptoms: N/A Person calling: [place]ie [phone] Was an appointment scheduled: No Closing statement: Results or non-symptom based questions: Thank you for calling [facility], your call will be returned within the next business day. Archana Chidl [facility]06-13-2024 Telephone encounter Note* Telephone Encounter - Paulina [...] once daily Authorizing Provider: PAULINA SEVERINO MD [facility]06-13-2024 Miscellaneous Notes* Telephone Encounter - Paulina Severino [...] 02, 2024 12:52 PM documented in this encounterEast Ohio Regional Hospital06-13-2024 Telephone encounter Note * Telephone Encounter - [...] Oconnor MA March 02, 2024 12:52 PM [facility]04-29-2024 Telephone encounter Note* Telephone Encounter - Terri [...] [birth year]2020 65 Please advise. Terri Mulligan MA [facility]04-29-2024 Miscellaneous Notes* Telephone Encounter - Terri Mulligan MA - 01/17/2024 9:53 AM EDT Pharmacy verified in [facility] Patient has been identified by [...] advise. Terri Mulligan MA documented in this encounterEast Ohio Regional Hospital04-23-2024 Telephone encounter Note * Telephone Encounter - Paulina Severino MD - 01/11/2024 4:05 PM EDT The following approved medication requests have been transmitted electronically. Requested Prescriptions Signed Prescriptions Disp Refills insulin lispro (HUMALOG KWIKPEN) 100 unit/mL 15 mL 5 Sig: INJECT 12 UNITS SUBCUTANEOUSLY THREE TIMES DAILY BEFORE MEALS - ADD 2 UNITS IF GLUCOSE IS [id number] Authorizing Provider: PAULINA SEVERINO MD [facility]04-23-2024 Miscellaneous Notes* Telephone Encounter - Paulina Severino MD - 01/11/2024 4:05 PM EDT The following approved medication requests have been transmitted electronically. Requested Prescriptions Signed Prescriptions Disp Refills insulin lispro (HUMALOG KWIKPEN) 100 unit/mL 15 mL 5 Sig: INJECT 12 UNITS SUBCUTANEOUSLY THREE TIMES DAILY BEFORE MEALS - ADD 2 UNITS IF GLUCOSE IS [id number] Authorizing Provider: PAULINA SEVERINO MD * Telephone Encounter - Sarah Oconnor MA - 01/11/2024 2:17 PM EDT Pharmacy verified in [facility] Patient has been identified by [...] advise. Sarah Oconnor MA documented in this encounterEast Ohio Regional Hospital04-23-2024 Telephone encounter Note * Telephone Encounter - Sarah Oconnor MA - 01/11/2024 2:17 PM EDT Pharmacy verified in [facility] Patient has been identified by [...] Not applicable Please advise. Sarah Oconnor MA [facility]04-15-2024 Miscellaneous Notes* Telephone Encounter - Sarah Oconnor MA - 01/03/2024 2:12 PM EDT Pharmacy verified in [facility] Patient has been identified by [...] advise. Sarah Oconnor MA documented in this encounterEast Ohio Regional Hospital04-10-2024 History of Present illness Narrative* Fritz Payan [...] Yes Discussed care with patient Based on patient scheduling manager, the following disposition is advised: No symptoms [...] 29, 2023 1:45 PM documented in this encounterEast Ohio Regional Hospital04-10-2024 History of Present illness Narrative* Alma Singh [...] 29, 2023 10:59 AM documented in this encounterEast Ohio Regional Hospital04-10-2024 Miscellaneous Notes* Telephone Encounter - Minoo Boone LPN - 12/29/2023 8:07 AM EDT Call placed to patients . Note added to patients chart. * Telephone Encounter - Lyubov Prado APRN.CNP - 12/28/2023 4:50 PM EDT Patient is sending a message about his 's medication on his [employer] account. Please call him and find out which medication he's referring to about his , close this encounter, and make a new encounter in the correct chart. Please advise him to contact the [employer] support desk to help his get set up on her account. Lyubov Prado APRN.NATHALY * Telephone Encounter - Marci Mckeon MA - 12/28/2023 4:09 PM EDT Please review and advise documented in this encounterEast Ohio Regional Hospital04-03-2024 Miscellaneous Notes* Telephone Encounter - Paulina Severino MD - 12/22/2023 2:04 PM EDT You'll need to have an appointment and see what the Hba1c is before we can ok surgery Paulina Severino MD documented in this encounterEast Ohio Regional Hospital04-03-2024 History of Present illness Narrative* Fritz Payan RN - 12/22/2023 1:38 PM EDT Advanced Illness Outreach Provider Action / FYI: Fifth call Spoke to Shilo today -He is doing well -States [employer] called and said it will be a $3,000 copay to get his prosthesis so he might look at other companies. -Denies any new issues -He will call [facility] to see about a lightweight wheelchair and how to order it. -Will call for one more week Patient identified by name and date of . Reason for contact: Post Acute Care Outreach Contact made with patient: Yes Discussed care with patient Based on patient scheduling manager, the following disposition is advised: No symptoms or symptoms present, not severe. Routed to: No Action Needed [place] Education Provided this Outreach: No Fritz Payan RN December 22, 2023 2:06 PM documented in this encounterEast Ohio Regional Hospital03-21-2024 Miscellaneous Notes* Telephone Encounter - Minoo Boone LPN - 12/09/2023 4:09 PM EDT Received 12/09/2023 from [facility]. Placed in provider's inbox for review. Route to [place] for scanning. documented in this encounterEast [facility]03-20-[facility]24 History of Present illness Narrative* Fritz Payan [...] on and use it. -Needs to reach [facility] to speak with the PT/OT regarding [...] Yes Discussed care with patient Based on patient scheduling manager, the following disposition is advised: No symptoms or symptoms present, not severe. 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 -Agreed to speak next week. Patient identified by name and date of . Reason for contact: Post Acute Care Outreach Contact made with patient: Yes Discussed care with patient Based on patient scheduling manager, the following disposition is advised: No symptoms or symptoms present, not severe. Routed to: No Action Needed [place] Education Provided this Outreach: No Fritz Payan RN December 02, 2023 12:13 PM documented in this encounterEast [facility] Hospital03-13-2024 History of Present illness Narrative* Fritz Payan [...] 01, 2023 1:29 PM documented in this encounterEast [facility] Regional Hospital03-12-2024 History of Present illness Narrative* Elizabeth Ball APRN.PIANO MECHANIC - 11/30/2023 10:45 AM EDT Shilo Hathaway [...] is currently taking aspirin: Yes Elizabeth Ball APRN.PIANO MECHANIC documented in this encounterEast Ohio Regional Hospital03-06-2024 History of Present illness Narrative* Fritz Payan [...] Yes Discussed care with patient Based on patient scheduling manager, the following disposition is advised: No symptoms or symptoms present, not severe. Routed to: No Action Needed [place] Education Provided this Outreach: No Fritz Payan RN November 24, 2023 4:42 PM documented in this encounterEast Ohio Regional Hospital03-04-2024 Miscellaneous Notes* Telephone Encounter - Suzie Espitia MA - 11/22/2023 3:57 PM EST Last appointment: 10/20/23 Next appointment: n/a Pharmacy verified in [facility]. Refill(s) requested: Requested Prescriptions Pending Prescriptions Disp Refills tamsulosin (FLOMAX) 0.4 mg 30 capsule 8 Sig: Take 1 capsule by mouth once daily. Order(s) pended. Please advise. 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 Working on getting bilateral prosthetics, stump check 11-30-23 Deferred outreach to patient at this time due to: Chart Review Only Next Outreach date: 11-24-23 Fritz Payan RN November 16, 2023 8:22 PM documented in this encounterEast Ohio Regional Hospital02-20-2024 Miscellaneous Notes* Telephone Encounter - Mellisa Pickett LPN - 11/09/2023 1:52 PM EST Received maintenance home visit summary 10/21/23 from [facility]. Placed in provider's inbox forreview. Route to [place] scanning. documented in this encounterEast Ohio Regional Hospital02-20-2024 History of Present illness Narrative* Elizabeth Ball APRN.PIANO MECHANIC - 11/09/2023 1:11 PM EST Images from [...] bumped his stump). No bleeding or drainage. Maybee have remained intact, though many nurses between [...] below, without edema, erythema, ecchymosis, or drainage: Maybee removed with mild bleeding and no dehiscence as pictured below: * The above image(s) of the R AKA STUMP was/were taken on 11/09/2023, with the verbal permission of the patient, for use in clinical documentation purposes only using an encrypted, [facility] approved device. All efforts were made to [...] Yes Elizabeth Ball APRN.NATHALY documented in this encounterEast Ohio Regional Hospital02-16-2024 Miscellaneous Notes* Telephone Encounter - Nivia Manning LPN - 11/05/2023 4:37 PM [facility]. This [...] 05, 2023 4:40 PM documented in this encounterEast Ohio Regional Hospital02-15-2024 History of Present illness Narrative* Marianna Klein MA - 11/04/2023 11:07 AM EST POST-ACUTE CARE (PAC) PROGRAM Quick Note Action/FYI: Chart review for Follow up #2 -patient doing good at last outreach -home care established -vascular appt 11/09/23 - currently in hospital Will outreach 1 week program completion Patient identified by name and . documented in this encounterEast Ohio Regional Hospital02-14-2024 Miscellaneous Notes* Telephone Encounter - Minoo Boone LPN - 11/03/2023 3:03 PM EST Received 11/02/2023 from [facility]. Placed in provider's inbox for review. Route to [place] for faxing documented in this encounterEast Ohio Regional Hospital02-13-2024 Miscellaneous Notes* Telephone Encounter - Mellisa Pickett LPN - 11/02/2023 5:01 PM EST Received orders OT evaluation from [facility]. Placed in provider's inbox for review. Route to [place] fax documented in this encounterEast Ohio Regional Hospital02-12-2024 Miscellaneous Notes* Telephone Encounter - Minoo Boone LPN - 11/01/2023 1:54 PM EST Received 11/01/2023 from [facility]. Placed in provider's inbox for review. Route to [place] for faxing. documented in this encounterEast Ohio Regional Hospital02-08-2024 History of Present illness Narrative* Marianna Klein MA - 10/28/2023 2:46 PM EST ASSISTED FACILITY (SNF) TRANSITIONAL CARE MANAGEMENT (TCM) POST-ACUTE CARE (PAC) PROGRAM Transitions Navigator Outreach Provider Action/FYI: SNF TCM PAC follow up #1 DC: 10/16/23 [facility] Jacquelin ([phone]) [facility]: [facility] [phone] Family Contact: renetta rylee (Spouse) [phone] Reason for hospitalization: ?Pt presented for chief [...] is Marianna Klein MA calling from the [facility] on behalf of Paulina Severino MD I [...] like to speak with a social work water team leader to help give you support for any of these needs? No It can also be quite common to feel anxious or down during a time of transition from one place to another or getting acclimated to changes in your health and well-being. Would you like to talk to a mental health professional (marriage and family social worker) about how you have been feeling? No [...] Outreach section. End outreach documented in this encounterEast Ohio Regional Hospital02-08-2024 Miscellaneous Notes* Telephone Encounter - Mellisa Pickett LPN - 10/28/2023 1:56 PM EST Received sign off request for acknowledgement of pt eval completion from [facility]. Placed in provider's inbox for review. Route to [place] fax documented in this encounterEast Ohio Regional Hospital02-05-2024 Miscellaneous Notes* Telephone Encounter - Paulina Severino [...] 10/25/2023 1:44 PM EST Pharmacy verified in [facility]. Patient has been identified by [...] advise. Dixie Peace MA documented in this encounterEast Ohio Regional Hospital02-01-2024 Instructions* Patient Instructions* Paulina Severino MD - 10/21/2023 4:40 PM EST [...] review all the medicines you take, even [id number] medicines. As you get older, the way [...] have certain medical conditions. documented in this encounterEast Ohio Regional Hospital02-01-2024 Miscellaneous Notes* Telephone Encounter - Mellisa Pickett LPN - 10/21/2023 8:50 AM EST Received orders for assisted and [facility]. Placed in provider's inbox for review. Route to [place] fax documented in this encounterEast Ohio Regional Hospital01-31-2024 History of Present illness Narrative* Paulina Sveerino MD - 10/20/2023 2:21 PM EST Transitional Care Management Progress Note The patients TCM visit was performed within the 14 days of discharge. Patient's Date of discharge: 09/29/2023 from [facility] and 10/16/2023 from [facility] Date of initial coordinator contact after discharge: 10/19/2023 Discharge diagnosis: Osteomyelitis of foot Medication review completed Yes Transitional Care Management Progress Note The patients TCM visit was performed within the 7 days of discharge from retirement Patient's Date of discharge: 09/29/2023 from [facility] and 10/16/2023, [facility] Date of initial coordinator contact after [...] occlusive disease (HCC) Atherosclerotic heart disease of [place] coronary artery without angina pectoris Carotid artery occlusion Carotid artery stenosis Cerebrovascular accident (CVA) (HCC) Coronary arteriosclerosis [place] 1998 Depressive disorder Disc disorder of lumbar [...] October 21, 2023 4:32PM documented in this encounterEast Ohio Regional Hospital11-29-2023 History of Present illness Narrative* Dylan Martinez MD - 08/18/2023 9:07 AM EST Images from the original note were not included. August 18, 2023 Shilo Barriga Renetta [id number] Chief Complaint: right toe ulcers Subjective: The patient is having more pain. The right third toe is now completely gangrenous but there is a good demarcation line at the base of the toe. The right fourth toe is a little larger but is not frankly gangrenous. PAST MEDICAL HISTORY Diagnosis Date Aortoiliac occlusive disease (HCC) Atherosclerotic heart disease of [place] coronary artery without angina pectoris Carotid artery occlusion Carotid artery stenosis Cerebrovascular accident (CVA) (HCC) Coronary arteriosclerosis [place] 1998 Depressive disorder Disc disorder of lumbar [...] he chooses to proceed. documented in this encounterEast Ohio Regional Hospital11-29-2023 Instructions* Patient Instructions* Tracy Ch LPN - 08/18/2023 8:39 AM EST Wounds Evaluated by [facility]: 1.Right 3rd toe 2.Right [...] ordered through prism 07/16/2023 Supplies ordered through [facility] will be delivered to your home Other notes or details:07/16/2023 Antibiotics ordered today please pick up truck driver at your pharmacy 08/18/2023 - discussed HBOT [...] call to be connected with a Patient Finished Goods Inspector. Please be advised wait times may be [...] time of your visit. documented in this encounterEast Ohio Regional Hospital11-28-2023 Miscellaneous Notes* Telephone Encounter - Deann Rasheed - 08/17/2023 9:10 AM EST [facility] [id number] documented in this encounterEast Ohio Regional Hospital11-22-2023 History of Present illness Narrative* Anne Villalpando MD - 08/11/2023 2:53 PM EST Shilo Hathaway 72 year old male here for follow-up PAD He has undergone the following procedure: - Attempted ABF -- 2016 DJW - R Ax- fem / R fem- L fem bypass with B HEAD OF DATA endart -- 2016 DJW - L groin [...] and it is discolored. +CAD, HLD, HTN, AL (1998), DM, Carotid ASO Former smoker - quit in 1998. TESTING: PVR done 06/23/23, results: R МАРИЯ 0.30/TBI 0.00 PVR done 12/15/22, results: R МАРИЯ 0.90/TBI 0.53 PAST MEDICAL HISTORY Diagnosis Date Aortoiliac occlusive disease (HCC) Atherosclerotic heart disease of [place] coronary artery without angina pectoris Carotid artery occlusion Carotid artery stenosis Cerebrovascular accident (CVA) (HCC) Coronary arteriosclerosis [place] 1998 Depressive disorder Disc disorder of lumbar [...] mouth once daily. flash glucose scanning reader (Brandlive CL 14 DAY READER) 1 Each once daily. flash glucose sensor (Catch MediaSTYLE CL 14 DAY SENSOR) kit Apply sensor [...] units if glucose is over 250. Insulin Oxford, Disposable, (PEN NEEDLE) 32 gauge x 5/32 Inject 1 Each subcutaneously every 24 hours. Give with each insulin administration. lancets (DTVCastET SUPER THIN LANCETS) 30 gauge Use to [...] with more than 50% of the total [id number] time of the visit in counseling / coordination of care. documented in this encounterEast Ohio Regional Hospital11-16-2023 Miscellaneous Notes* Telephone Encounter - Minoo Boone LPN - 08/05/2023 5:12 PM EST Received 08/05/2023 from [facility]. Placed in provider's inbox for review. Route to [place] for scanning. documented in this encounterEast Ohio Regional Hospital11-15-2023 History of Present illness Narrative* Dylan Martinez MD - 08/04/2023 9:54 AM EST Images from the original note were not included. August 04, 2023 Shilo Barriga Renetta [id number] Chief Complaint: right foot ulcers Subjective: ulcers about the same, less redness, he finished his antibiotics tomorrow PAST MEDICAL HISTORY Diagnosis Date Aortoiliac occlusive disease (HCC) Atherosclerotic heart disease of [place] coronary artery without angina pectoris Carotid artery occlusion Carotid artery stenosis Cerebrovascular accident (CVA) (HCC) Coronary arteriosclerosis [place] 1998 Depressive disorder Disc disorder of lumbar [...] Wound Image Site Assessment Black;Eschar;Intact;Sloughing Radha-Wound Assessment Intact;Minier Shape BALES 3 Wound Length (cm) 2 [...] Wound Image Site Assessment Black;Epithelialization;Sloughing;Intact Radha-Wound Assessment Intact;Minier Shape BALES 3 Wound Length (cm) 1.5 [...] Martinez MD Visit Codin documented in this encounterEast Ohio Regional Hospital11-15-2023 Instructions* Patient Instructions* Indira Paul RN - 08/04/2023 8:56 AM EST Wounds Evaluated by [facility]: 1.Right 3rd toe 2.Right 4th toe ANESTHETIC ADMINISTRATION: 2% Lidocaine HCl applied topical as needed for dressing changes or debridement during visit: applied 08/04/2023 CLINIC INTERVENTIONS TODAY: Debridement/physician: mechanical debridement 08/04/2023 Consent signed; Dr. Martinez on 07/16/2023 [facility] Picture Taken:07/16/2023 DRESSING ORDERS: Wound:right 3rd and [...] ordered through prism 07/16/2023 Supplies ordered through [facility] will be delivered to your home Other notes or details:07/16/2023 Antibiotics ordered today please pick up truck driver at your pharmacy Wound Center Information To reschedule or cancel an appointment call our offices directly at: [phone] or . To schedule ordered testing call: [...] call to be connected with a Patient Finished Goods Inspector. Please be advised wait times may be [...] time of your visit. documented in this encounterEast Ohio Regional Hospital11-14-2023 Miscellaneous Notes* Telephone Encounter - Vivian Couch [...] 7 days, Xarelto for 3 days, and [id number] for 5 days prior to injection on [...] a list of instructions were sent via [facility] mailed to the patient's home. Patient verbalized understanding with no additional questions or concerns at this time. * Telephone Encounter - Quinn Gia Strange - 07/29/2023 1:47 PM EST Received a message from Dr. Jalloh that today's injection was cancelled. He has drainage on his foot and on ATB. Patient will need to reschedule once healed and ATB is completed. documented in this encounterEast Ohio Regional Hospital11-08-2023 History of Present illness Narrative* Dylan Martinez MD - 07/28/2023 10:48 AM EST Images from the original note were not included. July 28, 2023 Shilo Hathaway [id number] Chief Complaint: right foot ulcers Subjective: ulcer sl larger, less painful, some redness still there, he is about to finish his antibiotics PAST MEDICAL HISTORY Diagnosis Date Aortoiliac occlusive disease (HCC) Atherosclerotic heart disease of [place] coronary artery without angina pectoris Carotid artery occlusion Carotid artery stenosis Cerebrovascular accident (CVA) (HCC) Coronary arteriosclerosis [place] 1998 Depressive disorder Disc disorder of lumbar [...] Wound Image Site Assessment Black;Eschar;Epithelialization;Granulation Radha-Wound Assessment Minier;Intact Wound Length (cm) 2 cm Wound Width [...] Martinez MD Visit Codin documented in this encounterEast Ohio Regional Hospital11-08-2023 Instructions* Patient Instructions* Tracy Ch LPN - 07/28/2023 10:01 AM EST Wounds Evaluated by [facility]: 1.Right 3rd toe 2.Right [...] and Last Order Date: 07/22/[address] 07/16/2023 Supplies ordered through [facility] will be delivered to your home Other notes or details:07/16/2023 Antibiotics ordered today please pick up truck driver at your pharmacy Wound Center Information To [...] call to be connected with a Patient Finished Goods Inspector. Please be advised wait times may be [...] time of your visit. documented in this encounterEast Ohio Regional Hospital11-06-2023 Miscellaneous Notes* Telephone Encounter - Skye Rendon - 07/26/2023 2:39 PM EST Left message for patient * Telephone Encounter - Danitza Card RN - 07/21/2023 2:49 PM EDT Called patient at [phone]. Left message on voicemail for patient to [...] note. Paulina Severino MD documented in this encounterEast Ohio Regional Hospital11-01-2023 History of Present illness Narrative* Pamela Hills [...] occlusive disease (HCC) Atherosclerotic heart disease of [place] coronary artery without angina pectoris Carotid artery occlusion Carotid artery stenosis Cerebrovascular accident (CVA) ([facility]) Coronary arteriosclerosis [place] 1998 Depressive disorder Disc disorder of lumbar region Diverticulitis of colon Diverticulitis of colon Essential tremor Gastroesophageal reflux disease Generalized anxiety disorder Hiatal hernia History of myocardial infarction Hyperlipidemia Hypertension Intervertebral disc disorder of lumbar region with myelopathy Irritable bowel syndrome Myocardial infarction (HCC) Old myocardial infarction Peripheral vascular disease ([facility]) PERS HX COLONIC POLYPS Preoperative testing 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 20 tablet 0 insulin glargine (BASAGLAR KWIKPEN U-100 INSULIN) 100 unit/mL (3 mL) Inject 32 Units subcutaneouslydaily at bedtime. Insulin Oxford, Disposable, (PEN NEEDLE) 32 gauge x 5/32 [...] 1 tablet by mouth once daily. 30 [id number] spironolactone (ALDACTONE) 25 mg tablet Take 1 [...] family. July 21, 2023 Pamela Hills M.D. [facility] [place] [facility] Neurology documented in this encounterEast Ohio Regional Hospital10-30-2023 History of Present illness Narrative* Paulina Severino [...] MEDICAL HISTORY Diagnosis Date Aortoiliac occlusive disease ([facility]) Atherosclerotic heart disease of [place] coronary artery without angina pectoris Carotid artery occlusion Carotid artery stenosis Cerebrovascular accident (CVA) ([facility]) Coronary arteriosclerosis AL 1998 Depressive disorder Disc disorder of lumbar region Diverticulitis of colon Diverticulitis of colon Essential tremor Gastroesophageal reflux disease Generalized anxiety disorder Hiatal hernia History of myocardial infarction Hyperlipidemia Hypertension Intervertebral disc disorder of lumbar region with myelopathy Irritable bowel syndrome Myocardial infarction ([facility]) Old myocardial infarction Peripheral vascular disease ([facility]) PERS HX COLONIC POLYPS Preoperative testing 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 Will obtain EKG today in office Plan: ECG COMPLETE; results as above (I50.20) HFrEF (heart failure with reduced ejection fraction) ([facility]) Comment: Stable Plan: Continue current [...] July 20, 2023 8:06AM documented in this encounterEast Ohio Regional Hospital10-27-2023 History of Present illness Narrative* Dylan Martinez MD - 07/16/2023 1:07 PM EDT Images from the original note were not included. 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 Camera System utilizing chalo light. The room [...] MD Visit Codin-25, [id number] documented in this encounterEast Ohio Regional Hospital10-27-2023 Instructions* Patient Instructions* Indira Paul RN - 07/16/2023 9:58 AM EDT Wounds Evaluated by [facility]: 1.right 3rd toe (NEW WOUND) Right 4th toe (NEW WOUND) ANESTHETIC ADMINISTRATION: 2% Lidocaine HCl applied topical as needed for dressing changes or debridement during visit:[id number]/2023 CLINIC INTERVENTIONS TODAY: Debridement/physician: mechanical debridement 07/16/2023 [...] and Last Order Date:07/16/2023 Supplies ordered through [facility] will be delivered to your home Other notes or details:07/16/2023 Antibiotics ordered today please pick up truck driver at your pharmacy Wound Center Information To [...] call to be connected with a Patient Finished Goods Inspector. Please be advised wait times may be [...] time of your visit. documented in this encounterEast Ohio Regional Hospital10-24-2023 History of Present illness Narrative* Anne Villalpando MD - 07/13/2023 11:48 AM EDT Images from the original note were not included. Shilo Hathaway 72 year old male here for follow-up PAD He has undergone the following procedure: - Attempted ABF -- 2017 DJW - R Ax- fem / R fem- L fem bypass with B HEAD OF DATA endart -- 2016 DJW - L groin [...] asa, plavix, xarelto, statin. +CAD, HLD, HTN, [place] (1998), DM, Carotid ASO Former smoker - quit in 1998. 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 flash glucose scanning reader (Catch MediaSTYLE CL 14 DAY READER) 1 Each once [...] units if glucose is over 250. Insulin Oxford, Disposable, (PEN NEEDLE) 32 gauge x 5/32 Inject 1 Each subcutaneously every 24 hours. Give with each insulin administration. lancets ([employer] SUPER THIN LANCETS) 30 gauge Use to [...] clinical documentation purposes only using an encrypted, [facility] approved device. All efforts were made to [...] with more than 50% of the total xmyz-ig-hnaw time of the visit in counseling / coordination of care. documented in this encounterEast [facility] Hospital10-11-2023 Miscellaneous Notes* Telephone Encounter - Mellisa Pickett - 06/30/2023 5:21 PM EDT Received request for most recent chart notes within the last 6 months from [employer]. Request faxed to [phone] documented in this encounterEast [facility] Hospital10-11-2023 Miscellaneous Notes* Telephone Encounter - Paulina Severino MD - 06/30/2023 3:50 PM EDT Glucose better. Appt/ check A1c Paulina Severino MD documented in this [facility]10-10-2023 History of Present illness Narrative* Elizabeth Ball APRN.PIANO MECHANIC - 06/29/2023 4:43 PM EDT Images from the original note were not included. Shilo Hathaway 72 year old male here for follow-up PAD He has undergone the following procedure: - Attempted ABF -- 2017 DJW - R Ax- fem / R fem- L fem bypass with B HEAD OF DATA endart -- 2016 DJW - L groin [...] asa, plavix, xarelto, statin. +CAD, HLD, HTN, AL (1998), DM, Carotid ASO Former smoker - quit in 1998. TESTING: PVR done 06/23/23, results: R МАРИЯ 0.30/TBI 0.00 PVR done 12/15/22, results: R МАРИЯ 0.90/TBI 0.53 PAST MEDICAL HISTORY Diagnosis Date Aortoiliac occlusive disease (HCC) Atherosclerotic heart disease of [place] coronary artery without angina pectoris Carotid artery occlusion Carotid artery stenosis Cerebrovascular accident (CVA) ([facility]) Coronary arteriosclerosis [place] 1998 Depressive disorder Disc disorder of lumbar [...] mouth once daily. flash glucose scanning reader ([employer] Media[employer]YLE CL 14 DAY READER) 1 Each once daily. flash glucose sensor ([employer]atch MediaSTYLE CL 14 DAY SENSOR) kit Apply sensor [...] units if glucose is over 250. Insulin Oxford, Disposable, (PEN NEEDLE) 32 gauge x 5/32 Inject 1 Each subcutaneously every 24 hours. Give with each insulin administration. lancets ([employer] SUPER THIN LANCETS) 30 gauge Use to [...] clinical documentation purposes only using an encrypted, [facility] approved device. All efforts were made to [...] with more than 50% of the total kubr-wr-eesx time of the visit in counseling / coordination of care. Elizabeth Ball APRN.PIANO MECHANIC documented in this encounterEast [facility] Hospital10-10-2023 Miscellaneous Notes* Telephone Encounter - Cyndi Clark OCCA - 06/29/2023 10:02 AM EDT Last appointment: 04/22/23 Next appointment: NA Pharmacy verified in [facility]. Refill(s) requested: Requested Prescriptions Pending Prescriptions Disp Refills Insulin Oxford, Disposable, (PEN NEEDLE) 32 gauge x 5/32 100 Each 3 Sig: Inject 1 Each subcutaneously every 24 hours. Give with each insulin administration. Order(s) pended. Please advise,thank you. Cyndi GARCÍA June 29, 2023 10:02 AM documented in this encounterEast [facility] Hospital09-20-2023 Instructions* Patient Instructions* Davin August PA-C - 06/09/2023 1:55 PM EDT How to review your options for a [facility] physician referral: Go to [email or web address] and look for the Find a Doctor tab right underneath the [facility] logo in the top left corner of the page. Click on that and then enter spine injection in that search field. There should be 18 or 20 different physicians in the [facility] area for you to review their credentials, locations of practice, educational background, and specialties. Call [phone] to schedule. documented in this encounterEast Ohio Regional Hospital09-20-2023 History of Present illness Narrative* Davin August PA-C - 06/09/2023 1:11 PM EDT [facility] [address] [address] Dear Paulina Severino MD, Shilo Barriga Renetta [...] 1 tablet by mouth once daily. 30 spironolactone (ALDACTONE) 25 mg tablet Take 1 tablet by mouth once daily. 30 tablet 11 gabapentin (NEURONTIN) 400 mg capsule Take 1 capsule by mouth three times daily for 90 days. 90 capsule 2 rivaroxaban (XARELTO) 20 mg tablet Take 1 tablet by mouth daily with dinner. 30 tablet 11 Insulin Oxford, Disposable, (PEN NEEDLE) 32 gauge x 5/32 [...] today with this patient visit. This includes odyv-go-gsvr time, review of chart records regarding conservative care history, spine- pertinent imaging, and communication/care coordination with referring provider, problem-specific history-taking and counseling/education regarding treatment options. This document has been created with the use of voice recognition technology. It may contain inaccuracies: (e.g. misspellings, inaccurate syntax or word sense) that have escaped review. Callie Marrero MA documented in this encounterEast [facility] Regional Hospital09-12-2023 History of Present illness Narrative* Sandra Alba [...] : 1319 Session Stop Time : 1408 Sandra Alba PTA documented in this encounterEast [facility] Hospital09-07-2023 Miscellaneous Notes* Telephone Encounter - Paulina Severino [...] readings Paulina Severino MD documented in this encounterEast [facility] Hospital09-06-2023 History and physical note * Roseline Pearson [...] for internal providers or letter via the [employer] for external providers. HPI: Shilo Hathaway is a 72 year old male who presents for Occult blood positive stool . PMHx of T2DM, HTN, depression, hx of AL, HLD is present today. Patient tells me that he is feeling well today. Denies symptoms today including rectal bleeding, black stools, changes in bowels, GERD. Notes that he always have a positive test. Does have numerous polyps. States he had a colonoscopy in [address] [facility]. Component Latest Ref Rng & Units 11/28/2022 Occult Blood, Stool Negative Positive (A) Record Review: [facility] / Outside records reviewed. PAST MEDICAL HISTORY PAST MEDICAL HISTORY Diagnosis Date Aortoiliac occlusive disease (HCC) Atherosclerotic heart disease of [place] coronary artery without angina pectoris Carotid artery occlusion Carotid artery stenosis Cerebrovascular accident (CVA) (HCC) Coronary arteriosclerosis [place] 1998 Depressive disorder Disc disorder of lumbar [...] breath) Thrombosis of right femoral-femoral bypass graft ([facility]) Type 2 diabetes mellitus (HCC) [...] tablet by mouth daily with dinner. Insulin Oxford, Disposable, (PEN NEEDLE) 32 gauge x 5/32 [...] Will try to get recent colonoscopy from [facility] ?2020. -- Consider repeat colonoscopy I have [...] for internal providers or letter via the [employer] for external providers. HPI: Shilo Hathaway is a 72 year old male who presents for Occult blood positive stool . PMHx of T2DM, HTN, depression, hx of AL, HLD is present today. Patient tells me that he is feeling well today. Denies symptoms today including rectal bleeding, black stools, changes in bowels, GERD. Notes that he always have a positive test. Does have numerous polyps. States he had a colonoscopy in [address] [facility]. Component Latest Ref Rng & Units 11/28/2022 Occult Blood, Stool Negative Positive (A) Record Review: [facility] / Outside records reviewed. PAST MEDICAL HISTORY PAST MEDICAL HISTORY Diagnosis Date Aortoiliac occlusive disease (HCC) Atherosclerotic heart disease of [place] coronary artery without angina pectoris Carotid artery occlusion Carotid artery stenosis Cerebrovascular accident (CVA) (HCC) Coronary arteriosclerosis [place] 1998 Depressive disorder Disc disorder of lumbar [...] tablet by mouth daily with dinner. Insulin Oxford, Disposable, (PEN NEEDLE) 32 gauge x 5/32 Inject 1 Each subcutaneously q 24 HR. Give with each insulin administration. rosuvastatin (CRESTOR) 20 mg tablet Take 1 tablet by mouth once daily. flash glucose sensor ([employer]STYLE CL 14 DAY SENSOR) kit Apply sensor [...] Will try to get recent colonoscopy from [facility] ?2020. -- Consider repeat colonoscopy I have [...] has no further questions. documented in this encounterEast [facility] Hospital09-04-2023 Miscellaneous Notes* Telephone Encounter - Kenia Hopson - 05/24/2023 10:29 AM EDT LMOM to schedule with DASH on LM day 6 Month F/UP for PVD with US ARETERIAL PVR 06/23/2023 *LM* documented in this encounterEast Ohio Regional Hospital08-22-2023 Miscellaneous Notes* Telephone Encounter - Paulina Severino MD - 05/11/2023 12:24 PM EDT Increase long acting to 22 units daily Increase short acting insulin to 16 units with each meal. Send readings in a couple weeks Paulina Severino MD * Telephone Encounter - Marci Mckeon Ma - 05/10/2023 3:43 PM EDT Please review and advise documented in this encounterEast [facility] Regional Hospital08-22-2023 History of Present illness Narrative* Kath Horton, [...] 1255 Kath Horton PT documented in this encounterEast Ohio Regional Hospital08-17-2023 History of Present illness Narrative* Kath Horton, [...] 05/06/2023 Gait with FWW 250 ft. progressing [place] in home exercise program. met Patient will [...] progressing Pt will navigate 6 steps with HYDROGEOLOGIST 1 rail I. met Standing balance feet together 30sec or better met Partial tandem balance 20 sec or greater met New Goal: LBQC 100ft Tandem stance 5 sec Planned Interventions, Frequency, and Duration: 1x/week, 8 weeks Total Number of Visits Planned: 8 Patient to be seen for Therapeutic exercise (29653), Neuromuscular re-education (54166), Manual therapy (78342), Therapeutic activities (79717), Self-correction management (78144), Gait Training (77759), Patient/Family/Caregiver Education PLAN FOR NEXT VISIT: continue [...] cueing and correction of abnormal movement patterns. Self-Long Term Management: 1: weight shifting practice with walker [...] 1615 Kath Horton PT documented in this encounterEast [facility] Hospital08-10-2023 Miscellaneous Notes* Telephone Encounter - Danitza Card RN - 04/29/2023 2:35 PM EDT Tried calling patient's mobile, won't go through. Called patient's home number. No answer. Left message on [employer] advising will send message from PCP verbatim through [employer], please let us know that he received [...] Please review and advise documented in this encounterEast [facility] Regional Hospital08-03-2023 History of Present illness Narrative* Paulina Severino [...] occlusive disease (HCC) Atherosclerotic heart disease of [place] coronary artery without angina pectoris Carotid artery occlusion Carotid artery stenosis Cerebrovascular accident (CVA) (HCC) Coronary arteriosclerosis [place] 1998 Depressive disorder Disc disorder of lumbar [...] is to send me BG log through [employer] within the next few weeks, goal is have BG under 150 (H25.091) Other age-related incipient cataract of right eye Comment: Patient has been trying to schedule eye surgery for some time now, came in today for clearance Plan: Recommend postponing surgery until diabetes is under better control. (Z23) Encounter for immunization Comment: Per health maintenance Plan: [employer] COVID-19 BIVALENT VACCINE, AGE 12+ YR (F32.A) [...] 22, 2023 3:05 PM documented in this encounterEast [facility] Hospital07-29-2023 History of Present illness Narrative* Kath Horton, [...] 841 Kath Horton PT documented in this encounterEast [facility] Hospital07-13-2023 History of Present illness Narrative* Kath Horton [...] 04/01/2023 Gait with FWW 250 ft. progressing [place] in home exercise program. met Patient will [...] progressing Pt will navigate 6 steps with HYDROGEOLOGIST 1 rail I. progressing New goal: Standing balance feet together 30sec or better met Partial tandem balance 20 sec or greater met Planned Interventions, Frequency, and Duration: 1x/week, 4 weeks Total Number of Visits Planned: 4 Patient to be seen for Therapeutic exercise (34612), Neuromuscular re-education (85600), Manual therapy (82793), Therapeutic activities (36644), Self-correction management (95557), Gait Training (72280), Patient/Family/Caregiver Education PLAN FOR NEXT VISIT: Check [...] 45 Kath Horton PT documented in this encounterEast [facility] Hospital07-03-2023 History of Present illness Narrative* Sandra Alba [...] 41 Sandra Alba PTA documented in this encounterEast Ohio Regional Hospital06-26-2023 History of Present illness Narrative* Sandra Alba [...] 38 Sandra Alba PTA documented in this encounterEast [facility] Hospital06-20-2023 History of Present illness Narrative* Kath Horton [...] was facilitated with verbal and visual cueing. Self-Long Term Management: 1: discussed strategies on/off floor and car transfers Skilled Intervention: Skilled judgment in the selection of proper modification for activity of daily living/home management based on clinical presentation, deficits, and needs. Billing Self-Care/Home Management Treatment Minutes: 5 Gait Training Treatment Minutes: 40 Total Treatment Time Minutes (timed/untimed): 55 Kath Horton PT documented in this encounterEast [facility] Hospital06-15-2023 History of Present illness Narrative* Kath Horton [...] 03/04/2023 Gait with FWW 250 ft. progressing [place] in home exercise program. progressing Patient will [...] progressing Pt will navigate 6 steps with HYDROGEOLOGIST 1 rail I. progressing New goal: Standing balance feet together 30sec or great met Partial tandem balance 20 sec or greater met Planned Interventions, Frequency, and Duration: 1x/week, 8 weeks Total Number of Visits Planned: 8 Patient to be seen for Therapeutic exercise (90811), Neuromuscular re-education (14022), Manual therapy (65043), Therapeutic activities (22146), Self-correction management (17577), Gait Training (15838), Patient/Family/Caregiver Education PLAN FOR NEXT VISIT: goal [...] 50 Kath Horton PT documented in this encounterEast [facility] Hospital06-07-2023 History of Present illness Narrative* Paulina Severino [...] MEDICAL HISTORY Diagnosis Date Aortoiliac occlusive disease ([facility]) Atherosclerotic heart disease of [place] coronary artery without angina pectoris Carotid artery occlusion Carotid artery stenosis Cerebrovascular accident (CVA) ([facility]) Coronary arteriosclerosis [place] 1998 Depressive disorder Disc disorder of lumbar region Diverticulitis of colon Diverticulitis of colon Essential tremor Gastroesophageal reflux disease Generalized anxiety disorder Hiatal hernia History of myocardial infarction Hyperlipidemia Hypertension Intervertebral disc disorder of lumbar region with myelopathy Irritable bowel syndrome Myocardial infarction ([facility]) Old myocardial infarction Peripheral vascular disease ([facility]) PERS HX COLONIC POLYPS Preoperative testing 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 Sleep apnea SOB (shortness of breath) Thrombosis of right femoral-femoral bypass graft ([facility]) Type 2 diabetes mellitus ([facility]) PHYSICAL EXAMINATION BP 163/76 Pulse [...] without gangrene, withlong-term current use of insulin ([facility]) (primary encounter diagnosis) Comment: Patient due for labs Plan: HGB A1C, LIPID PANEL BASIC, COMP METABOLIC PANEL, CBC, TSH BLD Continue Insulin regimen (Z89.612) S/P AKA (above knee amputation) unilateral, left ([facility]) Comment: Patient still endorses phantom pain, status quo Plan: Continue to monitor (I50.20) HFrEF (heart failure with reduced ejection fraction) ([facility]) (I73.9) Peripheral vascular disease ([facility]) (I25.119) Coronary artery disease involving [place] coronary artery of [place] heart with angina pectoris (HCC) Comment: Patient [...] 24, 2023 12:18 PM documented in this encounterEast [facility] Hospital06-05-2023 Miscellaneous Notes* Telephone Encounter - Mellisa Pickett - 02/22/2023 5:06 PM EDT Received request for most recent chart notes from [facility] [employer]. Requested information faxed. documented in this encounterEast Ohio Regional Hospital06-05-2023 History of Present illness Narrative* Sandra Alba, [...] 50 Sandra Alba PTA documented in this encounterEast [facility] Hospital05-30-2023 History of Present illness Narrative* Sandra Alba [...] 44 Sandra Alba PTA documented in this encounterEast [facility] Hospital05-15-2023 Miscellaneous Notes* Telephone Encounter - Mellisa Pickett - 02/01/2023 2:02 PM EDT Received clinical visit summary home visit from [facility]. Placed in provider's inbox for review. Route to MA scanning. documented in this encounterEast [facility] Hospital05-11-2023 History of Present illness Narrative* Kath Horton, [...] 01/28/2023 Gait with FWW 250 ft. progressing [place] in home exercise program. progressing Patient will [...] progressing Pt will navigate 6 steps with HYDROGEOLOGIST 1 rail I. Continue to assess New goal: Standing balance feet together 30sec or great Partial tandem balance 20 sec or greater Planned Interventions, Frequency, and Duration: 2x/week, 4 weeks Total Number of Visits Planned: 8 Patient to be seen for Therapeutic exercise (81908), Neuromuscular re-education (38180), Manual therapy (13893), Therapeutic activities (41254), Self-correction management (14337), Gait Training (72546), Patient/Family/Caregiver Education PLAN FOR NEXT VISIT: Continue [...] 45 Kath Horton PT documented in this encounterEast [facility] Hospital05-09-2023 Miscellaneous Notes* Telephone Encounter - Loan Romano Pss - 01/26/2023 3:53 PM EDT I sent him a my chart message providing [facility] number to schedule his colon bc he is an uncontrolled diabetic and can't come to [place]. I told him to let us when he is scheduled and we will get him the prep instructions Cesilia * Telephone Encounter - Jessica Patel PA-C - 01/26/2023 12:37 PM EDT Received and reviewed [facility] records. Called patient, voicemail vague. Left message to call office. Had numerous polyps removed back in [address] [facility]. Due to the amount and type, I would recommend a repeat colonoscopy at this time due to the positive FIT. Order placed, he will need to either be scheduled at [facility] or a hospital setting due to A1c at 10.8. Thank you! documented in this encounterEast Ohio Regional Hospital05-09-2023 Instructions* Patient Instructions* Jessica Patel PA-C - [...] If you do not have a responsible bicycle taxi driver (family member or friend) withyou to take you home, your exam cannot be done with sedation and will be cancelled. Please bring a list of all of your current medications, including any Eleq-gir-Sjdhhdd medications with you. Medications If you take [...] your exam. 2 08/2019 documented in this encounterEast [facility] Hospital05-08-2023 History of Present illness Narrative* Jessica Patel PA-C - 01/25/2023 1:59 PM EDT CHIEF COMPLAINT: Patient presents with: Occult blood positive stool This consult was requested by Paulina Severino MD for an opinion regarding positive FIT. My finalrecommendations will be communicated to the requesting health care provider by way of the shared medical record for internal providers or letter via the [employer] for external providers. HPI: Shilo Hathaway is a 72 year old male who presents for Occult blood positive stool . PMHx of T2DM, HTN, depression, hx of AL, HLD is present today. Patient tells me that he is feeling well today. Denies symptoms today including rectal bleeding, black stools, changes in bowels, GERD. Notes that he always have a positive test. Does have numerous polyps. States he had a colonoscopy in [address] [facility]. Component Latest Ref Rng & Units 11/28/2022 Occult Blood, Stool Negative Positive (A) Record Review: [facility] / Outside records reviewed. PAST MEDICAL HISTORY Diagnosis Date Aortoiliac occlusive disease (HCC) Atherosclerotic heart disease of [place] coronary artery without angina pectoris Carotid artery occlusion Carotid artery stenosis Cerebrovascular accident (CVA) (HCC) Coronary arteriosclerosis [place] 1998 Depressive disorder Disc disorder of lumbar [...] tablet by mouth daily with dinner. Insulin Oxford, Disposable, (PEN NEEDLE) 32 gauge x 5/32 [...] Will try to get recent colonoscopy from [facility] ?2020. -- Consider repeat colonoscopy Follow up in office PRN. Recommended to please call office/go to ER if fever, chills, chest pain, SOB, diarrhea, nausea, emesis, worsening abdominal pain, dehydration occurs I spent a total of 20 minutes on the date of the service which included preparing to see the patient, xirg-us-qrai patient care, completing clinical documentation, obtaining and/or reviewing separately obtained history, performing a medically appropriate examination, and counseling and educating the patient/family/caregiver. Jessica Patel PA-C January 25, 2023 2:29 PM documented in this encounterEast [facility] Regional Hospital05-03-2023 History of Present illness Narrative* Kath Horton [...] SUBJECTIVE: Eye surgery was cancelled. 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 Is temporary [...] 47 Kath Horton PT documented in this encounterEast [facility] Hospital04-20-2023 History of Present illness Narrative* Kath Horton [...] 65 Kath Horton PT documented in this encounterEast Ohio Regional Hospital04-13-2023 History of Present illness Narrative* Kath Horton [...] end of session. Able to stand without HYDROGEOLOGIST for extended duration today. The patient will [...] x 4 4: standing vs mirror without HYDROGEOLOGIST, 1 min , 1 min , 1 [...] 45 Kath Horton PT documented in this encounterEast Ohio Regional Hospital04-12-2023 History of Present illness Narrative* Elda Siddiqui RN - 12/30/2022 7:30 AM EDT Pt presents for lexiscan nuclear stress test. Upon evaluating pt's chart it appears pt had negativestress test 05/11. There is a note on 09/[address] Moran stating pt does not need to have anotherstress test due to his recent test in april. Called [facility] and confirmed with Jessica KARIMI that patient does not need this stress test. Pt educated that nuclear resting images will be good for30 days and that he should reach out to [facility] if he has any further questions. [...] Discontinued PROCEDURE TYPE: NM Stress: 13.1 mCi [id number] was administered IV for Rest Imaging at 0750 by ty. N/a mCi [id number] was administered IV for Stress Imaging at n/a by n/a. ADMINISTRATION TIME: n/a PATIENT DISCHARGED TO: Ambulatory patient, left NM department area. A Diagnostic radioactive procedure has taken place, with no further precautions necessary other than routine body substance precautions. More information regarding radiation safety can be found usingthis link: [email or web address] SIGNATURE: RT Hakeem(R) PATIENT NAME: Shilo Hathaway DATE: December 30, 2022 TIME: 9:13 AM PAGER/CONTACT #: documented in this encounterEast Ohio Regional Hospital04-12-2023 History of Present illness Narrative* Ronna Leger RN - 12/30/2022 6:03 AM EDT ACM DRAKE RN Action/FYI: Medication Adherence review completed per request of [facility]. NO PROVIDER ACTION REQUIRED Please see requests in the Summary/Findings section below Patient identified by name and date of . Patient Attributed To: E Payer: [employer] [place] Reason for review or outreach: Medication Adherence Medication Adherence Review Details: Hypertension Summary / Findings: Lisinopril was due for refill on: 12/10/22 at [facility] Action Taken: Data submitted to [employer] message to patient Contact made with patient: No, Chart review only. Signature: Ronna Leger RN documented in this encounterEast [facility]03-[facility] History of Present illness Narrative* Anne Villalpando [...] currently taking aspirin: Yes documented in this encounterEast [facility]03-27-[facility]23 History of Present illness Narrative* Eva Awad, STONE DRILLER HELPER - 12/14/2022 3:46 PM EDT Episode Visit [...] 45 Eva Awad PTA documented in this encounterEast [facility]03-21-[facility]23 History of Present illness Narrative* Kath Horton, [...] walker 5 times 2: standing balance no HYDROGEOLOGIST 10 attempts, max 30 3: standing B UE lift x 10 without HYDROGEOLOGIST Skilled Intervention: Correct performance of home program [...] 42 Kath Horton PT documented in this encounterEast [facility] Hospital03-21-2023 Miscellaneous Notes* Telephone Encounter - Barb Jennings - 12/08/2022 10:38 AM EDT Patient is scheduled. * Telephone Encounter - Lyubov Prado APRN.CNP - 12/08/2022 9:08 AM EDT Please assist patient in scheduling with GI practice in [place]. Lyubov Prado APRN.CNP documented in this encounterEast [facility] Hospital03-20-2023 Miscellaneous Notes* Telephone Encounter - Minoo Boone LPN - 12/07/2022 2:26 PM EDT LM for patient to call office and sent Sport Telegram message. * Telephone Encounter - Paulina Severino MD - 12/07/2022 11:07 AM EDT Positive occult blood Need to see GI about colonoscopy Paulina Severino MD documented in this encounterEast [facility] Hospital03-16-2023 History of Present illness Narrative* Kath Horton [...] 50 Kath Horton PT documented in this encounterEast [facility]03-14-2023 History of Present illness Narrative* Kath Horton [...] 12/01/2022 Gait with FWW 250 ft. progressing [place] in home exercise program. progressing Patient will [...] progressing Pt will navigate 6 steps with HYDROGEOLOGIST 1 rail I. Continue to assess Planned Interventions, Frequency, and Duration: 2x/week, 4 weeks Total Number of Visits Planned: 8 Patient to be seen for Therapeutic exercise (99458), Neuromuscular re-education (46502), Manual therapy (58932), Therapeutic activities (62503), Self-correction management (47365), Gait Training (19051), Patient/Family/Caregiver Education PLAN FOR NEXT VISIT: continue [...] 45 Kath Horton PT documented in this encounterEast [facility]03-07-2023 History of Present illness Narrative* Sandra Alba, [...] 59 Sandra Alba PTA documented in this encounterEast [facility]03-02-2023 History of Present illness Narrative* Eva Awad, STONE DRILLER HELPER - 11/19/2022 2:32 PM EST Episode Visit [...] 45 Eva Awad PTA documented in this encounterEast [facility] Hospital02-28-2023 History of Present illness Narrative* Sandra Alba [...] 51 Sandra Alba PTA documented in this encounterEast [facility] Hospital02-24-2023 Miscellaneous Notes* Telephone Encounter - Teagan Alcantara - 11/13/2022 8:29 AM EST 1st attempt, left voicemail. documented in this encounterEast [facility] Hospital02-23-2023 History of Present illness Narrative* Eva Awad [...] late. 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 Pain: Pain Pain Level: 0 [...] 45 Eva Awad PTA documented in this encounterEast [facility] Hospital02-21-2023 History of Present illness Narrative* Eva Awad [...] 47 Eva Awad PTA documented in this encounterEast [facility]02-16-2023 History of Present illness Narrative* Kath Horton, [...] 60 Kath Horton PT documented in this encounterEast [facility] Hospital02-14-2023 History of Present illness Narrative* Carin Connelly RN - 11/03/2022 4:13 PM EST ACM DRAKE RN Action/FYI: Medication Adherence barrier assessment per request of payer. 2021 Medication adherence failure. My chart Message sent to patient regarding overdue Lisinopril and Rosuvastatin. NO PROVIDER ACTION REQUIRED at this time. Patient identified by name and date of . Patient Attributed To: FLORENTIN Payer: [facility] Reason for review or outreach: Medication Adherence Medication Adherence Review Details: Cholesterol and Hypertension Summary / Findings: As per above Action Taken: Data submitted to [employer] message to patient Contact made with patient: No, Chart review only. Signature: Carin Connelly RN documented in this encounterEast [facility] Hospital02-14-2023 History of Present illness Narrative* Kath Horton, [...] through 01/02/23 Gait with FWW 250 ft. [place] in home exercise program. Patient will decrease [...] awareness. Pt will navigate 6 steps with HYDROGEOLOGIST 1 rail I. Planned Interventions, Frequency, and Duration: Current Frequency: 2x/week Duration: 12 weeks Total Number of Visits Planned: 24 Planned Treatment Interventions: Therapeutic exercise (47229), Neuromuscular re- education (94976), Manual therapy (74437), Therapeutic activities (69329), Self- correction management (42259), Gait Training (94675), Patient/Family/Caregiver Education PLAN FOR NEXT VISIT: Initiate [...] floor. 0 steps to enter home, but retirement goal need access 6 steps x 2 flights to access all areas of home. One rail. Has rails inbathroom. I with self care. Not back to cooking or walking yet. [facility] x 1 month. Not really doing much with HEP. Wearing prosthesis 2-3 hours. Does have parasthesias R foot/ankle, questions spinal issues. Medical History: Coronary artery disease involving [place] coronary artery of [place] heart Mixed hyperlipidemia Type 2 diabetes mellitus with diabetic neuropathy, with long-term current use of insulin ([facility]) Peripheral vascular disease ([facility]) History of stroke Hypertension Carotid artery stenosis Chronic anticoagulation NSTEMI (non-ST elevated myocardial infarction) ([facility]) Type 2 diabetes mellitus with diabetic peripheral angiopathy without gangrene, with long-term current use of insulin ([facility]) Acute right-sided low back pain with right-sided sciatica Sciatic nerve pain Ischemic foot ulcer due to atherosclerosis of [place]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 ([facility]) S/P AKA (above knee amputation) unilateral, left ([facility]) S/P vascular bypass HFrEF (heart failure with reduced ejection fraction) ([facility]) Lung nodule Difficulty walking Weakness [...] PT Treatment Interventions: Therapeutic Exercise, Neuromuscular Re-Education, Self-Long Term Management, Gait Training, Therapeutic Activity Evaluation Therapeutic Activity: 1: tish/doff prosthesis with mod assist on and SBA off 2: sit-stand x 2 with walker Skilled Intervention: Insured patient safety with use of gait belt Correct performance of home program was facilitated with verbal and visual cueing. Self-Long Term Management: 1: eval findings, POC, monitoring skin after prosthesis wear, follow up with five roll refiner batch mixer for adjustments as appropriate Skilled Intervention: Skilled judgment in the selection of proper modification for activity of daily living/home management based on clinical presentation, deficits, and needs. Billing * Evaluation Moderate Complexity: 1 Unit Therapeutic Activity Treatment Minutes: 8 Self-Care/Home Management Treatment Minutes: 8 Total Treatment Time Minutes (timed/untimed): 50 Kath Horton PT documented in this encounterEast [facility] Hospital02-09-2023 Miscellaneous Notes* Telephone Encounter - Minoo Boone LPN - 10/29/2022 3:53 PM EST Received 10/29/2022 from [facility]. Placed in provider's inbox for review. Route to [place] for scanning documented in this encounterEast [facility] Hospital02-03-2023 Miscellaneous Notes* Telephone Encounter - Deann Rasheed - 10/23/2022 1:31 PM EST I have sent the referral to physical therapy via the portal with a confirmation # [id number] documented in this encounterEast [facility] Hospital12-29-2022 Miscellaneous Notes* Telephone Encounter - Mellisa Pickett - 09/17/2022 5:08 PM EST Received visit summary from [facility]. Placed in provider's inbox for review. Route to [place] scanning. documented in this encounterEast [facility] Hospital12-28-2022 Miscellaneous Notes* Telephone Encounter - Nivia Manning LPN - 09/16/2022 1:49 PM EST Patient informed. Nivia Manning LPN September 16, 2022 1:49 PM * Telephone Encounter - Nivia Manning LPN - 09/16/2022 11:04 AM EST Nurse contacted Esteban Chirinos (p) [phone], spoke to Melinda, who stated medical records sent wasn't what they needed. Nurse is re-sending appropriate records to support necessity for prostheticand is (f) [phone]. This Nurse attempted to contact patient but no answer. Left request for return call and provided our number. Nivia Manning LPN September 16, 2022 11:06 AM documented in this encounterEast Ohio Regional Hospital12-28-2022 Miscellaneous Notes* Telephone Encounter - Nivia Manning LPN - 09/16/2022 11:10 AM EST Please see Encounter 09/16/2022 11:07AM. Nivia Manning LPN September 16, 2022 11:13 AM documented in this encounterEast Ohio [facility] Hospital12-21-2022 Miscellaneous Notes* Telephone Encounter - Sandra Christopher [...] Sandra M Ashwin, RN documented in this encounterEast Ohio Regional Hospital12-21-2022 History of Present illness Narrative* Larry Jones Feather Boner - 09/09/2022 7:30 AM EST Spoke with Elizabeth from [facility]. Patient scheduled for Lexiscan nuclear stress test 09/09/2022. Patient had Lexiscan stress test in April during an inpatient stay. Office to confirm with Dr. Moran but not necessary to repeat this study since previous one in April of 2022. Message left with patient confirming test being canceled. documented in this encounterEast [facility] Hospital12-05-2022 Miscellaneous Notes* [facility] - RT Javan(Sherri) [...] 24, 2022 10:14 AM documented in this encounterEast [facility] Hospital11-17-2022 History of Present illness Narrative* Paulina Severino MD - 08/06/2022 11:20 AM EST CHIEF COMPLAINT Patient presents with: F/U 3 Month HISTORY OF PRESENT ILLNESS Shiol Hathaway is a 71 year old male [...] occlusive disease (HCC) Atherosclerotic heart disease of [place] coronary artery without angina pectoris Carotid artery occlusion Carotid artery stenosis Cerebrovascular accident (CVA) ([facility]) Coronary arteriosclerosis AL 1998 Depressive disorder Disc disorder of lumbar [...] 10 Units subcutaneously daily at bedtime. Insulin Oxford, Disposable, (PEN NEEDLE) 32 gauge x 5/32 [...] August 06, 2022 5:11PM documented in this [facility]11-14-2022 Miscellaneous Notes* Telephone Encounter - Minoo Boone LPN - 08/03/2022 10:14 AM EST [facility] Placed in provider's inbox for review. Route to [place] for faxing documented in this [facility]11-02-2022 Miscellaneous Notes* Telephone Encounter - Mellisa Pickett - 07/22/2022 3:45 PM EDT [facility]. Placed in provider's inbox for review. Route to [place] fax documented in this [facility]11-01-2022 Miscellaneous Notes* Telephone Encounter - Tracy Lynn Ma - 07/21/2022 1:40 PM EDT Mailed glucose logs to patient. CLOSED documented in this [facility] History of Present illness Narrative* Paulina Severino MD - 07/10/2022 10:40 AM EDT CHIEF COMPLAINT Patient presents with: Follow Up: Discharge from [facility] HISTORY OF PRESENT ILLNESS Shilo Hathaway is [...] occlusive disease (HCC) Atherosclerotic heart disease of [place] coronary artery without angina pectoris Carotid artery occlusion Carotid artery stenosis Cerebrovascular accident (CVA) (HCC) Coronary arteriosclerosis [place] 1998 Depressive disorder Disc disorder of lumbar [...] Due for influenza Due for Pneumovax. Plan: Boracci COVID-19 BIVALENT BOOSTER VACCINE, AGE 12+ YR, INFLUENZA SEASONAL QUADRIVALENT HIGH DOSE AGE 65+, CANCELED: PNEUMOCOCCAL VACCINE (PREVNAR 20) Requested Prescriptions No prescriptions requested or ordered in this encounter RTO: 3 months Scribe Attestation: By signing my name below, I, Abbey Ozuna, attest that this documentation has been prepared under the direction and in the presence of Manpreet Severino M.D. Electronically Signed: Neftali aSha. July 10, 2022 8:14 AM Provider Attestation: [...] 10, 2022 3:02 PM documented in this encounterEast [facility] Hospital10-20-2022 Miscellaneous Notes* Telephone Encounter - Mellisa Pickett - 07/09/2022 10:57 AM EDT Orders faxed * Telephone Encounter - Mellisa Pickett - 07/09/2022 8:41 AM EDT Received orders to d/c home health from [facility]. Placed in provider's inbox for review. Route to [place] fax documented in this encounterEast Ohio Regional Hospital10-11-2022 History of Present illness Narrative* Elizabeth Georges RN - 06/30/2022 10:15 AM EDT ACM DRAKE RN Action/FYI: Patient identified by name and date of . Patient Attributed To: [facility] Payer: [facility] Reason for review or outreach: Medication Adherence Medication Adherence Review Details: Hypertension Summary / Findings: Ramipril in need of refill. Chart reviewed, medication discontinued at hospital stay Action Taken: Data submitted to Payer Contact made with patient: No, Chart review only. Signature: Elizabeth Georges RN documented in this [facility]10-05-2022 Miscellaneous Notes* Telephone Encounter - Jessica Stanley Ma - 06/24/2022 12:16 PM EDT Completed Request were sent with confirmation. (f) [phone] Forms placed in Nh's file. * Telephone Encounter - Jessica Stanley Ma - 06/24/2022 12:15 PM EDT Received Pharmacy Orders from [facility] for provider to review and sign. Forms placed in providers box. Once completed please send to : (f): Please route to [place] for completion. documented in this [facility]10-04-2022 Miscellaneous Notes* Telephone Encounter - Jessica Stanley Ma - 06/23/2022 7:04 PM EDT Completed Request were sent with confirmation. (f) [phone] ([facility]) Forms placed in Alexandr's file. * Telephone Encounter - Pat Terrell MD - 06/23/2022 6:47 PM EDT Form was signed and dated and placed in outbox Please fax back * Telephone Encounter - Jessica Stanley Ma - 06/23/2022 5:40 PM EDT Received Orders ( Dr. Severino- patient) Forms placed in covering providers in-box for completion. Jessica Stanley (Alexandr) documented in this encounterEast Ohio [facility] Hospital10-04-2022 Miscellaneous Notes* Telephone Encounter - Pat Terrell MD - 06/23/2022 6:48 PM EDT See other message * Telephone Encounter - Mellisa Pickett - 06/22/2022 1:47 PM EDT Received orders to sign from previous verbal orders from [facility]. Placed in provider's inbox for review. Route to [place] fax documented in this encounterEast Ohio [facility] Hospital09-30-2022 Miscellaneous Notes* Telephone Encounter - Silvina Ha [...] Please advise. Terri Mulligan documented in this encounterEast Ohio Regional Hospital09-29-2022 History of Present illness Narrative* Elizabeth Ball APRN.PIANO MECHANIC - 06/18/2022 9:48 AM EDT Shilo Hathaway [...] op; Shilo will see if he has [employer] info - will place new referral if [...] Yes Elizabeth Ball APRN.NATHALY documented in this encounterEast Ohio Regional Hospital09-28-2022 Miscellaneous Notes* Telephone Encounter - Mellisa Pickett - 06/17/2022 11:26 AM EDT Received orders for insulin lispro 5 units with each meal from [facility]. Placed in provider's inboxfor review. Route to [place] fax documented in this encounterEast Ohio [facility] Hospital09-26-2022 Miscellaneous Notes* Telephone Encounter - Mellisa Pickett - 06/15/2022 8:52 AM EDT Received PT/OT orders from [facility]. Placed in provider's inbox for review. Route to [place] fax documented in this encounterEast Ohio [facility] Hospital09-23-2022 Miscellaneous Notes* Telephone Encounter - Thu Vines RN - 06/12/2022 11:10 AM EDT Celestina from [facility] left VM on RN line requesting latest office notes or face to face be faxed to [phone] Reason for Disposition [1] Follow-up call to recent contact AND [2] information only call, no triage required Protocols used: Information Only Call - No [id number] documented in this encounterEast Ohio [facility] Hospital09-21-2022 Miscellaneous Notes* Telephone Encounter - Mellisa Pickett - 06/10/2022 9:34 AM EDT Called [facility] and relayed information. * Telephone Encounter - Lyubov Prado APRN.CNP - 06/10/2022 8:16 AM EDT Yes, Dr. Severino will follow this patient and sign home care orders. Lyubov Prado APRN.CNP * Telephone Encounter - Sandra Hewitt Pss - 06/09/2022 10:27 AM EDT Carmelita, from [facility], called to see if Dr. Severino will sign home care orders for nursing, PT and OT services. Please advise at [phone]. documented in this encounterEast Ohio [facility] Hospital09-20-2022 Miscellaneous Notes* Telephone Encounter - Jessica Duff [...] Pharmacy Information Pharmacy Address Telephone [facility] [address] [place], [place] [id number] Will need to get away from that strong of a pain medl. Appt in office soon. Paulina Severino MD documented in this encounterEast Ohio [facility] Hospital09-15-2022 History of Present illness Narrative* Bee Sarmiento - 06/04/2022 9:39 AM EDT Incidental Lung Nodule Enrollment Call attempt: 2nd Attempt Call status: Complete Enrolled in Lung Nodule program: No Declined reason: Other Lung Nodule Program Location: [place] Two letter attempts. No response/appointment documented in this encounterEast Ohio [facility] Hospital09-13-2022 Miscellaneous Notes* Telephone Encounter - Minoo Boone LPN - 06/02/2022 3:40 PM EDT Received 06/02/2022 from [facility]. Placed in provider's inbox for review. Route to [place] for scanning. documented in this encounterEast Ohio [facility] Hospital09-08-2022 Miscellaneous Notes* Telephone Encounter - Mellisa Pickett - 05/28/2022 7:53 AM EDT Received labs from [facility]. Placed in provider's inbox for review. Entered into pt chart. Route to [place] scanning. documented in this encounterEast Ohio [facility] Hospital09-06-2022 History of Present illness Narrative* Bee Sarmiento - 05/26/2022 8:46 AM EDT Incidental Lung Nodule Enrollment Call attempt: 2nd Attempt Call status: Complete Enrolled in Lung Nodule program: Referred Lung Nodule Program Location: [place] Two letter attempts documented in this encounterEast Ohio [facility] Hospital09-02-2022 Miscellaneous Notes* Telephone Encounter - Troy Becerril - 05/22/2022 5:21 PM EDT Called pt to schedule hospital follow-up - no answer, left vm w/ appt info Also sent appt reminder ltr to address provided in pt's chart Thursday, July 21, 2022 @ 10AM w/ NEEL Olmedo at [facility] Troy Becerril May 22, 2022 5:21 PM * Telephone Encounter - Selma Olmedo APRN.CNP - 05/22/2022 1:04 PM EDT Please make a hospital follow up appointment to be seen in 4-[address] Moran or ENGAGEMENT LIAISON Thank you Selma Olmedo APRN.CNP documented in this encounterEast Ohio Regional Hospital09-01-2022 Miscellaneous Notes* Telephone Encounter - Mellisa Pickett - 05/21/2022 10:48 AM EDT Called [facility] jes Zhao and spoke with 100 unit charge nurse Faviola. Relayed information. * Telephone Encounter - Paulina Severino MD - 05/21/2022 9:56 AM EDT Pt has been admitted to [facility]. Received call for orders after hours. Please call [facility] and let the nurse know the oxycodone [...] PAULINA SEVERINO Pharmacy Information Pharmacy Address Telephone [facility] [address] [place] [address] Paulina Severino MD documented in this encounterEast Ohio Regional Hospital08-31-2022 Miscellaneous Notes* Telephone Encounter - Ashley Rocha PA-C - 05/20/2022 3:11 PM EDT Please set up follow up appt s/p Konrad GLORIA in 4 weeks with Rakan Ball CNP documented in this encounterEast Ohio Regional Hospital08-30-2022 History of Past illness Narrative* Problem Noted Date Resolved Date GA (acute kidney injury) 05/19/20222021 Epistaxis 05/19/2022 05/19/2022 Acute respiratory failure with hypoxia 2 05/19/2022 Double vision 07/26/2017 09/30/2018 Sixth nerve palsy of left eye 07/25/2017 Headache(784.0) 09/08/2015 Abdominal pain, left lower quadrant 09/08/2015 Pain in limb 09/08/2015 SOB (shortness of breath) 2020 documented as of this encounter (statuses as of 05/20/2022) [facility] History of Past illness Narrative* Problem Noted Date Resolved Date GA (acute kidney injury) 05/19/20222021 Epistaxis 05/19/2022 05/19/2022 Acute respiratory failure with hypoxia 2 05/19/2022 Double vision 07/26/2017 09/30/2018 Sixth nerve palsy of left eye 07/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 Headache(784.0) 09/08/2015 Abdominal pain, left lower quadrant 09/08/2015 Pain in limb 09/08/2015 SOB (shortness of breath) 2020 documented as of this encounter (statuses as of 05/21/2022) [address]30-[address]22 History of Past illness Narrative* Problem Noted Date Resolved Date GA (acute kidney injury) 05/19/20222021 Epistaxis 05/19/2022 05/19/2022 Acute respiratory failure with hypoxia 2 05/19/2022 Double vision 07/26/2017 09/30/2018 Sixth nerve palsy of left eye 07/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 Headache(784.0) 09/08/2015 Abdominal pain, left lower quadrant 09/08/2015 Pain in limb 09/08/2015 SOB (shortness of breath) 2020 documented as of this encounter (statuses as of 05/22/2022) [address]30-2022 History of Past illness Narrative* Problem Noted Date Resolved Date GA (acute kidney injury) 05/19/20222021 Epistaxis 05/19/2022 05/19/2022 Acute respiratory failure with hypoxia 2 05/19/2022 Double vision 07/26/2017 09/30/2018 Sixth nerve palsy of left eye 07/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 Headache(784.0) 09/08/2015 Abdominal pain, left lower quadrant 09/08/2015 Pain in limb 09/08/2015 SOB (shortness of breath) 2020 documented as of this encounter (statuses as of 05/26/2022) [address]22 History of Past illness Narrative* Problem Noted Date Resolved Date GA (acute kidney injury) 05/19/20222021 Epistaxis 05/19/2022 05/19/2022 Acute respiratory failure with hypoxia 2 05/19/2022 Double vision 07/26/2017 09/30/2018 Sixth nerve palsy of left eye 07/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 Headache(784.0) 09/08/2015 Abdominal pain, left lower quadrant 09/08/2015 Pain in limb 09/08/2015 SOB (shortness of breath) 2020 documented as of this encounter (statuses as of 05/28/2022) [address]22 History of Past illness Narrative* Problem Noted Date Resolved Date GA (acute kidney injury) 05/19/20222021 Epistaxis 05/19/2022 05/19/2022 Acute respiratory failure with hypoxia 2 05/19/2022 Double vision 07/26/2017 09/30/2018 Sixth nerve palsy of left eye 07/25/2017 Headache(784.0) 09/08/2015 Abdominal pain, left lower quadrant 09/08/2015 Pain in limb 09/08/2015 SOB (shortness of breath) 2020 documented as of this encounter (statuses as of 06/02/2022) [address]30-2022 History of Past illness Narrative* Problem Noted Date Resolved Date GA (acute kidney injury) 05/19/20222021 Epistaxis 05/19/2022 05/19/2022 Acute respiratory failure with hypoxia 2 05/19/2022 Double vision 07/26/2017 09/30/2018 Sixth nerve palsy of left eye 07/25/2017 Headache(784.0) 09/08/2015 Abdominal pain, left lower quadrant 09/08/2015 Pain in limb 09/08/2015 SOB (shortness of breath) 2020 documented as of this encounter (statuses as of 06/04/2022) [facility] of Past illness Narrative* Problem Noted Date Resolved Date GA (acute kidney injury) 05/19/20222021 Epistaxis 05/19/2022 05/19/2022 Acute respiratory failure with hypoxia 2 05/19/2022 Double vision 07/26/2017 09/30/2018 Sixth nerve palsy of left eye 07/25/2017 Headache(784.0) 09/08/2015 Abdominal pain, left lower quadrant 09/08/2015 Pain in limb 09/08/2015 SOB (shortness of breath) 2020 documented as of this encounter (statuses as of 06/09/2022) [address]30-2022 History of Past illness Narrative* Problem Noted Date Resolved Date GA (acute kidney injury) 05/19/20222021 Epistaxis 05/19/2022 05/19/2022 Acute respiratory failure with hypoxia 2 05/19/2022 Double vision 07/26/2017 09/30/2018 Sixth nerve palsy of left eye 07/25/2017 Headache(784.0) 09/08/2015 Abdominal pain, left lower quadrant 09/08/2015 Pain in limb 09/08/2015 SOB (shortness of breath) 2020 documented as of this encounter (statuses as of 06/10/2022) [facility]08-30-2022 History of Past illness Narrative* Problem Noted Date Resolved Date GA (acute kidney injury) 05/19/20222021 Epistaxis 05/19/2022 05/19/2022 Acute respiratory failure with hypoxia 2 05/19/2022 Double vision 07/26/2017 09/30/2018 Sixth nerve palsy of left eye 07/25/2017 Headache(784.0) 09/08/2015 Abdominal pain, left lower quadrant 09/08/2015 Pain in limb 09/08/2015 SOB (shortness of breath) 2020 documented as of this encounter (statuses as of 06/12/2022) [facility]2022 History of Past illness Narrative* Problem Noted Date Resolved Date GA (acute kidney injury) 05/19/20222021 Epistaxis 05/19/2022 05/19/2022 Acute respiratory failure with hypoxia 2 05/19/2022 Double vision 07/26/2017 09/30/2018 Sixth nerve palsy of left eye 07/25/2017 Headache(784.0) 09/08/2015 Abdominal pain, left lower quadrant 09/08/2015 Pain in limb 09/08/2015 SOB (shortness of breath) 2020 documented as of this encounter (statuses as of 06/15/2022) [address]30-2022 History of Past illness Narrative* Problem Noted Date Resolved Date GA (acute kidney injury) 05/19/20222021 Epistaxis 05/19/2022 05/19/2022 Acute respiratory failure with hypoxia 2 05/19/2022 Double vision 07/26/2017 09/30/2018 Sixth nerve palsy of left eye 07/25/2017 Headache(784.0) 09/08/2015 Abdominal pain, left lower quadrant 09/08/2015 Pain in limb 09/08/2015 SOB (shortness of breath) 2020 documented as of this encounter (statuses as of 06/17/2022) [facility]2022 History of Past illness Narrative* Problem Noted Date Resolved Date GA (acute kidney injury) 05/19/20222021 Epistaxis 05/19/2022 05/19/2022 Acute respiratory failure with hypoxia 2 05/19/2022 Double vision 07/26/2017 09/30/2018 Sixth nerve palsy of left eye 07/25/2017 Headache(784.0) 09/08/2015 Abdominal pain, left lower quadrant 09/08/2015 Pain in limb 09/08/2015 SOB (shortness of breath) 2020 documented as of this encounter (statuses as of 06/18/2022) [facility]20[facility] History of Past illness Narrative* Problem Noted Date Resolved Date GA (acute kidney injury) 05/19/20222021 Epistaxis 05/19/2022 05/19/2022 Acute respiratory failure with hypoxia 2 05/19/2022 Double vision 07/26/2017 09/30/2018 Sixth nerve palsy of left eye 07/25/2017 Headache(784.0) 09/08/2015 Abdominal pain, left lower quadrant 09/08/2015 Pain in limb 09/08/2015 SOB (shortness of breath) 2020 documented as of this encounter (statuses as of 06/19/2022) [facility]20[facility] History of Past illness Narrative* Problem Noted Date Resolved Date GA (acute kidney injury) 05/19/20222021 Epistaxis 05/19/2022 05/19/2022 Acute respiratory failure with hypoxia 2 05/19/2022 Double vision 07/26/2017 09/30/2018 Sixth nerve palsy of left eye 07/25/2017 Headache(784.0) 09/08/2015 Abdominal pain, left lower quadrant 09/08/2015 Pain in limb 09/08/2015 SOB (shortness of breath) 2020 documented as of this encounter (statuses as of 06/23/2022) [facility]20[facility] History of Past illness Narrative* Problem Noted Date Resolved Date GA (acute kidney injury) 05/19/20222021 Epistaxis 05/19/2022 05/19/2022 Acute respiratory failure with hypoxia 2 05/19/2022 Double vision 07/26/2017 09/30/2018 Sixth nerve palsy of left eye 07/25/2017 Headache(784.0) 09/08/2015 Abdominal pain, left lower quadrant 09/08/2015 Pain in limb 09/08/2015 SOB (shortness of breath) 2020 documented as of this encounter (statuses as of 06/24/2022) [facility] History of Past illness Narrative* Problem Noted Date Resolved Date GA (acute kidney injury) 05/19/20222021 Epistaxis 05/19/2022 05/19/2022 Acute respiratory failure with hypoxia 2 05/19/2022 Double vision 07/26/2017 09/30/2018 Sixth nerve palsy of left eye 07/25/2017 Headache(784.0) 09/08/2015 Abdominal pain, left lower quadrant 09/08/2015 Pain in limb 09/08/2015 SOB (shortness of breath) 2020 documented as of this encounter (statuses as of 06/29/2022) [address]30-2022 History of Past illness Narrative* Problem Noted Date Resolved Date GA (acute kidney injury) 05/19/20222021 Epistaxis 05/19/2022 05/19/2022 Acute respiratory failure with hypoxia 2 05/19/2022 Double vision 07/26/2017 09/30/2018 Sixth nerve palsy of left eye 07/25/2017 Headache(784.0) 09/08/2015 Abdominal pain, left lower quadrant 09/08/2015 Pain in limb 09/08/2015 SOB (shortness of breath) 2020 documented as of this encounter (statuses as of 06/30/2022) [address]30-2022 History of Past illness Narrative* Problem Noted Date Resolved Date GA (acute kidney injury) 05/19/20222021 Epistaxis 05/19/2022 05/19/2022 Acute respiratory failure with hypoxia 2 05/19/2022 Double vision 07/26/2017 09/30/2018 Sixth nerve palsy of left eye 07/25/2017 Headache(784.0) 09/08/2015 Abdominal pain, left lower quadrant 09/08/2015 Pain in limb 09/08/2015 SOB (shortness of breath) 2020 documented as of this encounter (statuses as of 07/09/2022) [address]30-2022 History of Past illness Narrative* Problem Noted Date Resolved Date GA (acute kidney injury) 05/19/20222021 Epistaxis 05/19/2022 05/19/2022 Acute respiratory failure with hypoxia 2 05/19/2022 Double vision 07/26/2017 09/30/2018 Sixth nerve palsy of left eye 07/25/2017 Headache(784.0) 09/08/2015 Abdominal pain, left lower quadrant 09/08/2015 Pain in limb 09/08/2015 SOB (shortness of breath) 2020 documented as of this encounter (statuses as of 07/10/2022) [address]30-2022 History of Past illness Narrative* Problem Noted Date Resolved Date GA (acute kidney injury) 05/19/20222021 Epistaxis 05/19/2022 05/19/2022 Acute respiratory failure with hypoxia 2 05/19/2022 Double vision 07/26/2017 09/30/2018 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 Headache(784.0) 09/08/2015 Abdominal pain, left lower quadrant 09/08/2015 Pain in limb 09/08/2015 SOB (shortness of breath) 2020 documented as of this encounter (statuses as of 07/21/2022) [address]30-2022 History of Past illness Narrative* Problem Noted Date Resolved Date GA (acute kidney injury) 05/19/20222021 Epistaxis 05/19/2022 05/19/2022 Acute respiratory failure with hypoxia 2 05/19/2022 Double vision 07/26/2017 09/30/2018 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 Headache(784.0) 09/08/2015 Abdominal pain, left lower quadrant 09/08/2015 Pain in limb 09/08/2015 SOB (shortness of breath) 2020 documented as of this encounter (statuses as of 07/22/2022) [address]30-2022 History of Past illness Narrative* Problem Noted Date Resolved Date GA (acute kidney injury) 05/19/20222021 Epistaxis 05/19/2022 05/19/2022 Acute respiratory failure with hypoxia 2 05/19/2022 Double vision 07/26/2017 09/30/2018 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 Headache(784.0) 09/08/2015 Abdominal pain, left lower quadrant 09/08/2015 Pain in limb 09/08/2015 SOB (shortness of breath) 2020 documented as of this encounter (statuses as of 07/24/2022) [address]30-2022 History of Past illness Narrative* Problem [...] of this encounter (statuses as of 08/03/2022) [address]30-2022 History of Past illness Narrative* Problem Noted Date Resolved Date GA (acute kidney injury) 05/19/20222021 Epistaxis 05/19/2022 05/19/2022 Acute respiratory failure with hypoxia 2 05/19/2022 Double vision 07/26/2017 09/30/2018 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 Headache(784.0) 09/08/2015 Abdominal pain, left lower quadrant 09/08/2015 Pain in limb 09/08/2015 SOB (shortness of breath) 2020 documented as of this encounter (statuses as of 08/06/2022) [address]30-2022 History of Past illness Narrative* Problem Noted Date Resolved Date GA (acute kidney injury) 05/19/20222021 Epistaxis 05/19/2022 05/19/2022 Acute respiratory failure with hypoxia 2 05/19/2022 Double vision 07/26/2017 09/30/2018 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 Headache(784.0) 09/08/2015 Abdominal pain, left lower quadrant 09/08/2015 Pain in limb 09/08/2015 SOB (shortness of breath) 2020 documented as of this encounter (statuses as of 08/25/2022) [facility]08[facility]2022 History of Past illness Narrative* Problem Noted Date Resolved Date GA (acute kidney injury) 05/19/20222021 Epistaxis 05/19/2022 05/19/2022 Acute respiratory failure with hypoxia 2 05/19/2022 Double vision 07/26/2017 09/30/2018 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 Headache(784.0) 09/08/2015 Abdominal pain, left lower quadrant 09/08/2015 Pain in limb 09/08/2015 SOB (shortness of breath) 2020 documented as of this encounter (statuses as of 09/09/2022) [address]30-2022 History of Past illness Narrative* Problem Noted Date Resolved Date GA (acute kidney injury) 05/19/20222021 Epistaxis 05/19/2022 05/19/2022 Acute respiratory failure with hypoxia 2 05/19/2022 Double vision 07/26/2017 09/30/2018 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 Headache(784.0) 09/08/2015 Abdominal pain, left lower quadrant 09/08/2015 Pain in limb 09/08/2015 SOB (shortness of breath) 2020 documented as of this encounter (statuses as of 09/14/2022) [facility]08[facility]20[facility] History of Past illness Narrative* Problem Noted Date Resolved Date GA (acute kidney injury) 05/19/20222021 Epistaxis 05/19/2022 05/19/2022 Acute respiratory failure with hypoxia 2 05/19/2022 Double vision 07/26/2017 09/30/2018 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 Headache(784.0) 09/08/2015 Abdominal pain, left lower quadrant 09/08/2015 Pain in limb 09/08/2015 SOB (shortness of breath) 2020 documented as of this encounter (statuses as of 09/22/2022) [facility]2022 History of Past illness Narrative* Problem Noted Date Resolved Date GA (acute kidney injury) 05/19/20222021 Epistaxis 05/19/2022 05/19/2022 Acute respiratory failure with hypoxia 2 05/19/2022 Double vision 07/26/2017 09/30/2018 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 Headache(784.0) 09/08/2015 Abdominal pain, left lower quadrant 09/08/2015 Pain in limb 09/08/2015 SOB (shortness of breath) 2020 documented as of this encounter (statuses as of 09/23/2022) [facility]20[facility] History of Past illness Narrative* Problem Noted Date Resolved Date GA (acute kidney injury) 05/19/20222021 Epistaxis 05/19/2022 05/19/2022 Acute respiratory failure with hypoxia 2 05/19/2022 Double vision 07/26/2017 09/30/2018 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 Headache(784.0) 09/08/2015 Abdominal pain, left lower quadrant 09/08/2015 Pain in limb 09/08/2015 SOB (shortness of breath) 2020 documented as of this encounter (statuses as of 10/23/2022) [facility]20[facility] History of Past illness Narrative* Problem Noted Date Resolved Date GA (acute kidney injury) 05/19/20222021 Epistaxis 05/19/2022 05/19/2022 Acute respiratory failure with hypoxia 2 05/19/2022 Double vision 07/26/2017 09/30/2018 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 Headache(784.0) 09/08/2015 Abdominal pain, left lower quadrant 09/08/2015 Pain in limb 09/08/2015 SOB (shortness of breath) 2020 documented as of this encounter (statuses as of 10/29/2022) [facility]20[facility] History of Past illness Narrative* Problem Noted Date Resolved Date GA (acute kidney injury) 05/19/20222021 Epistaxis 05/19/2022 05/19/2022 Acute respiratory failure with hypoxia 2 05/19/2022 Double vision 07/26/2017 09/30/2018 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 Headache(784.0) 09/08/2015 Abdominal pain, left lower quadrant 09/08/2015 Pain in limb 09/08/2015 SOB (shortness of breath) 2020 documented as of this encounter (statuses as of 11/04/2022) [facility]20[facility] History of Past illness Narrative* Problem Noted Date Resolved Date GA (acute kidney injury) 05/19/20222021 Epistaxis 05/19/2022 05/19/2022 Acute respiratory failure with hypoxia 2 05/19/2022 Double vision 07/26/2017 09/30/2018 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 Headache(784.0) 09/08/2015 Abdominal pain, left lower quadrant 09/08/2015 Pain in limb 09/08/2015 SOB (shortness of breath) 2020 documented as of this encounter (statuses as of 11/04/2022) [address]30-2022 History of Past illness Narrative* Problem Noted Date Resolved Date GA (acute kidney injury) 05/19/20222021 Epistaxis 05/19/2022 05/19/2022 Acute respiratory failure with hypoxia 2 05/19/2022 Double vision 07/26/2017 09/30/2018 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 Headache(784.0) 09/08/2015 Abdominal pain, left lower quadrant 09/08/2015 Pain in limb 09/08/2015 SOB (shortness of breath) 2020 documented as of this encounter (statuses as of 11/06/2022) [address]30-2022 History of Past illness Narrative* Problem Noted Date Resolved Date GA (acute kidney injury) 05/19/20222021 Epistaxis 05/19/2022 05/19/2022 Acute respiratory failure with hypoxia 2 05/19/2022 Double vision 07/26/2017 09/30/2018 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 Headache(784.0) 09/08/2015 Abdominal pain, left lower quadrant 09/08/2015 Pain in limb 09/08/2015 SOB (shortness of breath) 2020 documented as of this encounter (statuses as of 11/10/2022) [address]30-2022 History of Past illness Narrative* Problem Noted Date Resolved Date GA (acute kidney injury) 05/19/20222021 Epistaxis 05/19/2022 05/19/2022 Acute respiratory failure with hypoxia 2 05/19/2022 Double vision 07/26/2017 09/30/2018 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 Headache(784.0) 09/08/2015 Abdominal pain, left lower quadrant 09/08/2015 Pain in limb 09/08/2015 SOB (shortness of breath) 2020 documented as of this encounter (statuses as of 11/11/2022) [address]30-2022 History of Past illness Narrative* Problem Noted Date Resolved Date GA (acute kidney injury) 05/19/20222021 Epistaxis 05/19/2022 05/19/2022 Acute respiratory failure with hypoxia 2 05/19/2022 Double vision 07/26/2017 09/30/2018 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 Headache(784.0) 09/08/2015 Abdominal pain, left lower quadrant 09/08/2015 Pain in limb 09/08/2015 SOB (shortness of breath) 2020 documented as of this encounter (statuses as of 11/12/2022) [address]30-2022 History of Past illness Narrative* Problem Noted Date Resolved Date GA (acute kidney injury) 05/19/20222021 Epistaxis 05/19/2022 05/19/2022 Acute respiratory failure with hypoxia 2 05/19/2022 Double vision 07/26/2017 09/30/2018 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 Headache(784.0) 09/08/2015 Abdominal pain, left lower quadrant 09/08/2015 Pain in limb 09/08/2015 SOB (shortness of breath) 2020 documented as of this encounter (statuses as of 11/13/2022) [address]30-2022 History of Past illness Narrative* Problem Noted Date Resolved Date GA (acute kidney injury) 05/19/20222021 Epistaxis 05/19/2022 05/19/2022 Acute respiratory failure with hypoxia 2 05/19/2022 Double vision 07/26/2017 09/30/2018 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 Headache(784.0) 09/08/2015 Abdominal pain, left lower quadrant 09/08/2015 Pain in limb 09/08/2015 SOB (shortness of breath) 2020 documented as of this encounter (statuses as of 11/18/2022) [address]30-2022 History of Past illness Narrative* Problem Noted Date Resolved Date GA (acute kidney injury) 05/19/20222021 Epistaxis 05/19/2022 05/19/2022 Acute respiratory failure with hypoxia 2 05/19/2022 Double vision 07/26/2017 09/30/2018 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 Headache(784.0) 09/08/2015 Abdominal pain, left lower quadrant 09/08/2015 Pain in limb 09/08/2015 SOB (shortness of breath) 2020 documented as of this encounter (statuses as of 11/20/2022) [address]30-2022 History of Past illness Narrative* Problem Noted Date Resolved Date GA (acute kidney injury) 05/19/20222021 Epistaxis 05/19/2022 05/19/2022 Acute respiratory failure with hypoxia 2 05/19/2022 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 04/23/2022 11/24/2022 Double vision 07/26/2017 09/30/2018 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 Headache(784.0) 09/08/2015 Abdominal pain, left lower quadrant 09/08/2015 Pain in limb 09/08/2015 SOB (shortness of breath) 2020 documented as of this encounter (statuses as of 11/25/2022) [address]30-2022 History of Past illness Narrative* Problem Noted Date Resolved Date GA (acute kidney injury) 05/19/20222021 Epistaxis 05/19/2022 05/19/2022 Acute respiratory failure with hypoxia 2 05/19/2022 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 04/23/2022 11/24/2022 Double vision 07/26/2017 09/30/2018 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 Headache(784.0) 09/08/2015 Abdominal pain, left lower quadrant 09/08/2015 Pain in limb 09/08/2015 SOB (shortness of breath) 2020 documented as of this encounter (statuses as of 12/01/2022) [facility] History of Past illness Narrative* Problem Noted Date Resolved Date GA (acute kidney injury) 05/19/20222021 Epistaxis 05/19/2022 05/19/2022 Acute respiratory failure with hypoxia 2 05/19/2022 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 04/23/2022 11/24/2022 Double vision 07/26/2017 09/30/2018 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 Headache(784.0) 09/08/2015 Abdominal pain, left lower quadrant 09/08/2015 Pain in limb 09/08/2015 SOB (shortness of breath) 2020 documented as of this encounter (statuses as of 12/03/2022) [facility] History of Past illness Narrative* Problem Noted Date Resolved Date GA (acute kidney injury) 05/19/20222021 Epistaxis 05/19/2022 05/19/2022 Acute respiratory failure with hypoxia 2 05/19/2022 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 04/23/2022 11/24/2022 Double vision 07/26/2017 09/30/2018 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 Headache(784.0) 09/08/2015 Abdominal pain, left lower quadrant 09/08/2015 Pain in limb 09/08/2015 SOB (shortness of breath) 2020 documented as of this encounter (statuses as of 12/08/2022) [facility] History of Past illness Narrative* Problem Noted Date Resolved Date GA (acute kidney injury) 05/19/20222021 Epistaxis 05/19/2022 05/19/2022 Acute respiratory failure with hypoxia 2 05/19/2022 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 04/23/2022 11/24/2022 Double vision 07/26/2017 09/30/2018 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 Headache(784.0) 09/08/2015 Abdominal pain, left lower quadrant 09/08/2015 Pain in limb 09/08/2015 SOB (shortness of breath) 2020 documented as of this encounter (statuses as of 12/08/2022) [facility] History of Past illness Narrative* Problem Noted Date Resolved Date GA (acute kidney injury) 05/19/20222021 Epistaxis 05/19/2022 05/19/2022 Acute respiratory failure with hypoxia 05/19/2022 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 04/23/2022 11/24/2022 Double vision 07/26/2017 09/30/2018 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 Headache(784.0) 09/08/2015 Abdominal pain, left lower quadrant 09/08/2015 Pain in limb 09/08/2015 SOB (shortness of breath) 2020 documented as of this encounter (statuses as of 12/08/2022) [facility] History of Past illness Narrative* Problem Noted Date Resolved Date GA (acute kidney injury) 05/19/20222021 Epistaxis 05/19/2022 05/19/2022 Acute respiratory failure with hypoxia 2 05/19/2022 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 04/23/2022 11/24/2022 Double vision 07/26/2017 09/30/2018 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 Headache(784.0) 09/08/2015 Abdominal pain, left lower quadrant 09/08/2015 Pain in limb 09/08/2015 SOB (shortness of breath) 2020 documented as of this encounter (statuses as of 12/15/2022) [facility] History of Past illness Narrative* Problem Noted Date Resolved Date GA (acute kidney injury) 05/19/20222021 Epistaxis 05/19/2022 05/19/2022 Acute respiratory failure with hypoxia 05/19/2022 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 04/23/2022 11/24/2022 Double vision 07/26/2017 09/30/2018 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 Headache(784.0) 09/08/2015 Abdominal pain, left lower quadrant 09/08/2015 Pain in limb 09/08/2015 SOB (shortness of breath) 2020 documented as of this encounter (statuses as of 12/16/2022) [facility] History of Past illness Narrative* Problem Noted Date Resolved Date GA (acute kidney injury) 05/19/20222021 Epistaxis 05/19/2022 05/19/2022 Acute respiratory failure with hypoxia 2 05/19/2022 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 04/23/2022 11/24/2022 Double vision 07/26/2017 09/30/2018 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 Headache(784.0) 09/08/2015 Abdominal pain, left lower quadrant 09/08/2015 Pain in limb 09/08/2015 SOB (shortness of breath) 2020 documented as of this encounter (statuses as of 12/30/2022) [facility] History of Past illness Narrative* Problem Noted Date Resolved Date GA (acute kidney injury) 05/19/20222021 Epistaxis 05/19/2022 05/19/2022 Acute respiratory failure with hypoxia 2 05/19/2022 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 04/23/2022 11/24/2022 Double vision 07/26/2017 09/30/2018 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 Headache(784.0) 09/08/2015 Abdominal pain, left lower quadrant 09/08/2015 Pain in limb 09/08/2015 SOB (shortness of breath) 2020 documented as of this encounter (statuses as of 12/31/2022) [facility] History of Past illness Narrative* Problem Noted Date Resolved Date GA (acute kidney injury) 05/19/20222021 Epistaxis 05/19/2022 05/19/2022 Acute respiratory failure with hypoxia 05/19/2022 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 04/23/2022 11/24/2022 Double vision 07/26/2017 09/30/2018 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 Headache(784.0) 09/08/2015 Abdominal pain, left lower quadrant 09/08/2015 Pain in limb 09/08/2015 SOB (shortness of breath) 2020 documented as of this encounter (statuses as of 01/01/2023) [facility] History of Past illness Narrative* Problem Noted Date Resolved Date GA (acute kidney injury) 05/19/20222021 Epistaxis 05/19/2022 05/19/2022 Acute respiratory failure with hypoxia 2 05/19/2022 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 04/23/2022 11/24/2022 Double vision 07/26/2017 09/30/2018 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 Headache(784.0) 09/08/2015 Abdominal pain, left lower quadrant 09/08/2015 Pain in limb 09/08/2015 SOB (shortness of breath) 2020 documented as of this encounter (statuses as of 01/08/2023) [facility] History of Past illness Narrative* Problem Noted Date Resolved Date GA (acute kidney injury) 05/19/20222021 Epistaxis 05/19/2022 05/19/2022 Acute respiratory failure with hypoxia 2 05/19/2022 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 04/23/2022 11/24/2022 Double vision 07/26/2017 09/30/2018 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 Headache(784.0) 09/08/2015 Abdominal pain, left lower quadrant 09/08/2015 Pain in limb 09/08/2015 SOB (shortness of breath) 2020 documented as of this encounter (statuses as of 01/21/2023) [facility] History of Past illness Narrative* Problem Noted Date Resolved Date GA (acute kidney injury) 05/19/20222021 Epistaxis 05/19/2022 05/19/2022 Acute respiratory failure with hypoxia 05/19/2022 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 04/23/2022 11/24/2022 Double vision 07/26/2017 09/30/2018 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 Headache(784.0) 09/08/2015 Abdominal pain, left lower quadrant 09/08/2015 Pain in limb 09/08/2015 SOB (shortness of breath) 2020 documented as of this encounter (statuses as of 01/26/2023) [facility] History of Past illness Narrative* Problem Noted Date Resolved Date GA (acute kidney injury) 05/19/20222021 Epistaxis 05/19/2022 05/19/2022 Acute respiratory failure with hypoxia 05/19/2022 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 04/23/2022 11/24/2022 Double vision 07/26/2017 09/30/2018 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 Headache(784.0) 09/08/2015 Abdominal pain, left lower quadrant 09/08/2015 Pain in limb 09/08/2015 SOB (shortness of breath) 2020 documented as of this encounter (statuses as of 01/26/2023) [facility]2022 History of Past illness Narrative* Problem Noted Date Resolved Date GA (acute kidney injury) 05/19/20222021 Epistaxis 05/19/2022 05/19/2022 Acute respiratory failure with hypoxia 2 05/19/2022 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 04/23/2022 11/24/2022 Double vision 07/26/2017 09/30/2018 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 Headache(784.0) 09/08/2015 Abdominal pain, left lower quadrant 09/08/2015 Pain in limb 09/08/2015 SOB (shortness of breath) 2020 documented as of this encounter (statuses as of 01/29/2023) [facility]2022 History of Past illness Narrative* Problem Noted Date Resolved Date GA (acute kidney injury) 05/19/20222021 Epistaxis 05/19/2022 05/19/2022 Acute respiratory failure with hypoxia 2 05/19/2022 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 04/23/2022 11/24/2022 Double vision 07/26/2017 09/30/2018 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 Headache(784.0) 09/08/2015 Abdominal pain, left lower quadrant 09/08/2015 Pain in limb 09/08/2015 SOB (shortness of breath) 2020 documented as of this encounter (statuses as of 02/01/2023) [facility] History of Past illness Narrative* Problem Noted Date Resolved Date GA (acute kidney injury) 05/19/20222021 Epistaxis 05/19/2022 05/19/2022 Acute respiratory failure with hypoxia 2 05/19/2022 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 04/23/2022 11/24/2022 Double vision 07/26/2017 09/30/2018 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 Headache(784.0) 09/08/2015 Abdominal pain, left lower quadrant 09/08/2015 Pain in limb 09/08/2015 SOB (shortness of breath) 2020 documented as of this encounter (statuses as of 02/17/2023) [facility] History of Past illness Narrative* Problem Noted Date Resolved Date GA (acute kidney injury) 05/19/20222021 Epistaxis 05/19/2022 05/19/2022 Acute respiratory failure with hypoxia 2 05/19/2022 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 04/23/2022 11/24/2022 Double vision 07/26/2017 09/30/2018 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 Headache(784.0) 09/08/2015 Abdominal pain, left lower quadrant 09/08/2015 Pain in limb 09/08/2015 SOB (shortness of breath) 2020 documented as of this encounter (statuses as of 02/23/2023) [facility] History of Past illness Narrative* Problem Noted Date Resolved Date GA (acute kidney injury) 05/19/20222021 Epistaxis 05/19/2022 05/19/2022 Acute respiratory failure with hypoxia 2 05/19/2022 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 04/23/2022 11/24/2022 Double vision 07/26/2017 09/30/2018 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 Headache(784.0) 09/08/2015 Abdominal pain, left lower quadrant 09/08/2015 Pain in limb 09/08/2015 SOB (shortness of breath) 2020 documented as of this encounter (statuses as of 02/23/2023) [place] [id number] History of Past illness Narrative* Problem Noted Date Resolved Date GA (acute kidney injury) 05/19/20222021 Epistaxis 05/19/2022 05/19/2022 Acute respiratory failure with hypoxia 2 05/19/2022 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 04/23/2022 11/24/2022 Double vision 07/26/2017 09/30/2018 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 Headache(784.0) 09/08/2015 Abdominal pain, left lower quadrant 09/08/2015 Pain in limb 09/08/2015 SOB (shortness of breath) 2020 documented as of this encounter (statuses as of 02/24/2023) [facility] History of Past illness Narrative* Problem Noted Date Resolved Date GA (acute kidney injury) 05/19/20222021 Epistaxis 05/19/2022 05/19/2022 Acute respiratory failure with hypoxia 05/19/2022 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 04/23/2022 11/24/2022 Double vision 07/26/2017 09/30/2018 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 Headache(784.0) 09/08/2015 Abdominal pain, left lower quadrant 09/08/2015 Pain in limb 09/08/2015 SOB (shortness of breath) 2020 documented as of this encounter (statuses as of 03/05/2023) [facility] History of Past illness Narrative* Problem Noted Date Resolved Date GA (acute kidney injury) 05/19/20222021 Epistaxis 05/19/2022 05/19/2022 Acute respiratory failure with hypoxia 2 05/19/2022 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 04/23/2022 11/24/2022 Double vision 07/26/2017 09/30/2018 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 Headache(784.0) 09/08/2015 Abdominal pain, left lower quadrant 09/08/2015 Pain in limb 09/08/2015 SOB (shortness of breath) 2020 documented as of this encounter (statuses as of 03/10/2023) [facility] History of Past illness Narrative* Problem Noted Date Resolved Date GA (acute kidney injury) 05/19/20222021 Epistaxis 05/19/2022 05/19/2022 Acute respiratory failure with hypoxia 2 05/19/2022 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 04/23/2022 11/24/2022 Double vision 07/26/2017 09/30/2018 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 Headache(784.0) 09/08/2015 Abdominal pain, left lower quadrant 09/08/2015 Pain in limb 09/08/2015 SOB (shortness of breath) 2020 documented as of this encounter (statuses as of 03/16/2023) [facility] History of Past illness Narrative* Problem Noted Date Resolved Date GA (acute kidney injury) 05/19/20222021 Epistaxis 05/19/2022 05/19/2022 Acute respiratory failure with hypoxia 05/19/2022 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 04/23/2022 11/24/2022 Double vision 07/26/2017 09/30/2018 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 Headache(784.0) 09/08/2015 Abdominal pain, left lower quadrant 09/08/2015 Pain in limb 09/08/2015 SOB (shortness of breath) 2020 documented as of this encounter (statuses as of 03/23/2023) [facility] History of Past illness Narrative* Problem Noted Date Diagnosed Date Resolved Date GA (acute kidney injury) 05/19/2022 Epistaxis 05/19/2022 05/19/2022 Acute respiratory failure with hypoxia 05/19/2022 05/19/2022 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 04/23/2022 11/24/2022 Double vision 07/26/2017 09/30/2018 Sixth nerve palsy of left eye 07/25/2017 09/30/2018 Headache(784.0) 09/08/2015 Abdominal pain, left lower quadrant 09/08/2015 Pain in limb 09/08/2015 SOB (shortness of breath) documented as of this encounter (statuses as of 04/02/2023) [facility] History of Past illness Narrative* Problem Noted Date Diagnosed Date Resolved Date GA (acute kidney injury) 05/19/2022 Epistaxis 05/19/2022 05/19/2022 Acute respiratory failure with hypoxia 05/19/2022 05/19/2022 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 04/23/2022 11/24/2022 Double vision 07/26/2017 09/30/2018 Sixth nerve palsy of left eye 07/25/2017 09/30/2018 Headache(784.0) 09/08/2015 Abdominal pain, left lower quadrant 09/08/2015 Pain in limb 09/08/2015 SOB (shortness of breath) documented as of this encounter (statuses as of 04/17/2023) [facility] History of Past illness Narrative* Problem Noted Date Diagnosed Date Resolved Date GA (acute kidney injury) 05/19/2022 Epistaxis 05/19/2022 05/19/2022 Acute respiratory failure with hypoxia 05/19/2022 05/19/2022 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 04/23/2022 11/24/2022 Double vision 07/26/2017 09/30/2018 Sixth nerve palsy of left eye 07/25/2017 09/30/2018 Headache(784.0) 09/08/2015 Abdominal pain, left lower quadrant 09/08/2015 Pain in limb 09/08/2015 SOB (shortness of breath) documented as of this encounter (statuses as of 04/21/2023) [facility] History of Past illness Narrative* Problem Noted Date Diagnosed Date Resolved Date GA (acute kidney injury) 05/19/2022 Epistaxis 05/19/2022 05/19/2022 Acute respiratory failure with hypoxia 05/19/2022 05/19/2022 Malnutrition of mild degree 04/27/2022 04/22/2023 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 04/23/2022 11/24/2022 Double vision 07/26/2017 09/30/2018 Sixth nerve palsy of left eye 07/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 09/30/2018 Headache(784.0) 09/08/2015 Abdominal pain, left lower quadrant 09/08/2015 Pain in limb 09/08/2015 SOB (shortness of breath) documented as of this encounter (statuses as of 04/23/2023) [facility] History of Past illness Narrative* Problem Noted Date Diagnosed Date Resolved Date GA (acute kidney injury) 05/19/2022 Epistaxis 05/19/2022 05/19/2022 Acute respiratory failure with hypoxia 05/19/2022 05/19/2022 Malnutrition of mild degree 04/27/2022 04/22/2023 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 04/23/2022 11/24/2022 Double vision 07/26/2017 09/30/2018 Sixth nerve palsy of left eye 07/25/2017 09/30/2018 Headache(784.0) 09/08/2015 Abdominal pain, left lower quadrant 09/08/2015 Pain in limb 09/08/2015 SOB (shortness of breath) documented as of this encounter (statuses as of 05/01/2023) [facility] History of Past illness Narrative* Problem Noted Date Diagnosed Date Resolved Date GA (acute kidney injury) 05/19/2022 Epistaxis 05/19/2022 05/19/2022 Acute respiratory failure with hypoxia 05/19/2022 05/19/2022 Malnutrition of mild degree 04/27/2022 04/22/2023 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 04/23/2022 11/24/2022 Double vision 07/26/2017 09/30/2018 Sixth nerve palsy of left eye 07/25/2017 09/30/2018 Headache(784.0) 09/08/2015 Abdominal pain, left lower quadrant 09/08/2015 Pain in limb 09/08/2015 SOB (shortness of breath) documented as of this encounter (statuses as of 05/04/2023) [facility] History of Past illness Narrative* Problem Noted Date Diagnosed Date Resolved Date GA (acute kidney injury) 05/19/2022 Epistaxis 05/19/2022 05/19/2022 Acute respiratory failure with hypoxia 05/19/2022 05/19/2022 Malnutrition of mild degree 04/27/2022 04/22/2023 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 04/23/2022 11/24/2022 Double vision 07/26/2017 09/30/2018 Sixth nerve palsy of left eye 07/25/2017 09/30/2018 Headache(784.0) 09/08/2015 Abdominal pain, left lower quadrant 09/08/2015 Pain in limb 09/08/2015 SOB (shortness of breath) documented as of this encounter (statuses as of 05/07/2023) [facility] History of Past illness Narrative* Problem Noted Date Diagnosed Date Resolved Date GA (acute kidney injury) 05/19/2022 Epistaxis 05/19/2022 05/19/2022 Acute respiratory failure with hypoxia 05/19/2022 05/19/2022 Malnutrition of mild degree 04/27/2022 04/22/2023 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 04/23/2022 11/24/2022 Double vision 07/26/2017 09/30/2018 Sixth nerve palsy of left eye 07/25/2017 09/30/2018 Headache(784.0) 09/08/2015 Abdominal pain, left lower quadrant 09/08/2015 Pain in limb 09/08/2015 SOB (shortness of breath) documented as of this encounter (statuses as of 05/11/2023) [facility] History of Past illness Narrative* Problem Noted Date Diagnosed Date Resolved Date GA (acute kidney injury) 05/19/2022 Epistaxis 05/19/2022 05/19/2022 Acute respiratory failure with hypoxia 05/19/2022 05/19/2022 Malnutrition of mild degree 04/27/2022 04/22/2023 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 04/23/2022 11/24/2022 Double vision 07/26/2017 09/30/2018 Sixth nerve palsy of left eye 07/25/2017 09/30/2018 Headache(784.0) 09/08/2015 Abdominal pain, left lower quadrant 09/08/2015 Pain in limb 09/08/2015 SOB (shortness of breath) documented as of this encounter (statuses as of 05/11/2023) [facility] History of Past illness Narrative* Problem Noted Date Diagnosed Date Resolved Date GA (acute kidney injury) 05/19/2022 Epistaxis 05/19/2022 05/19/2022 Acute respiratory failure with hypoxia 05/19/2022 05/19/2022 Malnutrition of mild degree 04/27/2022 04/22/2023 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 04/23/2022 11/24/2022 Double vision 07/26/2017 09/30/2018 Sixth nerve palsy of left eye 07/25/2017 09/30/2018 Headache(784.0) 09/08/2015 Abdominal pain, left lower quadrant 09/08/2015 Pain in limb 09/08/2015 SOB (shortness of breath) documented as of this encounter (statuses as of 05/24/2023) [facility] History of Past illness Narrative* Problem Noted Date Diagnosed Date Resolved Date GA (acute kidney injury) 05/19/2022 Epistaxis 05/19/2022 05/19/2022 Acute respiratory failure with hypoxia 05/19/2022 05/19/2022 Malnutrition of mild degree 04/27/2022 04/22/2023 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 04/23/2022 11/24/2022 Double vision 07/26/2017 09/30/2018 Sixth nerve palsy of left eye 07/25/2017 09/30/2018 Headache(784.0) 09/08/2015 Abdominal pain, left lower quadrant 09/08/2015 Pain in limb 09/08/2015 SOB (shortness of breath) documented as of this encounter (statuses as of 05/27/2023) [facility] History of Past illness Narrative* Problem Noted Date Diagnosed Date Resolved Date GA (acute kidney injury) 05/19/2022 Epistaxis 05/19/2022 05/19/2022 Acute respiratory failure with hypoxia 05/19/2022 05/19/2022 Malnutrition of mild degree 04/27/2022 04/22/2023 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 04/23/2022 11/24/2022 Double vision 07/26/2017 09/30/2018 Sixth nerve palsy of left eye 07/25/2017 09/30/2018 Headache(784.0) 09/08/2015 Abdominal pain, left lower quadrant 09/08/2015 Pain in limb 09/08/2015 SOB (shortness of breath) documented as of this encounter (statuses as of 05/28/2023) [facility] History of Past illness Narrative* Problem Noted Date Diagnosed Date Resolved Date GA (acute kidney injury) 05/19/2022 Epistaxis 05/19/2022 05/19/2022 Acute respiratory failure with hypoxia 05/19/2022 05/19/2022 Malnutrition of mild degree 04/27/2022 04/22/2023 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 04/23/2022 11/24/2022 Double vision 07/26/2017 09/30/2018 Sixth nerve palsy of left eye 07/25/2017 09/30/2018 Headache(784.0) 09/08/2015 Abdominal pain, left lower quadrant 09/08/2015 Pain in limb 09/08/2015 SOB (shortness of breath) documented as of this encounter (statuses as of 06/02/2023) [facility] History of Past illness Narrative* Problem Noted Date Diagnosed Date Resolved Date GA (acute kidney injury) 05/19/2022 Epistaxis 05/19/2022 05/19/2022 Acute respiratory failure with hypoxia 05/19/2022 05/19/2022 Malnutrition of mild degree 04/27/2022 04/22/2023 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 04/23/2022 11/24/2022 Double vision 07/26/2017 09/30/2018 Sixth nerve palsy of left eye 07/25/2017 09/30/2018 Headache(784.0) 09/08/2015 Abdominal pain, left lower quadrant 09/08/2015 Pain in limb 09/08/2015 SOB (shortness of breath) documented as of this encounter (statuses as of 06/09/2023) [facility] History of Past illness Narrative* Problem Noted Date Diagnosed Date Resolved Date GA (acute kidney injury) 05/19/2022 Epistaxis 05/19/2022 05/19/2022 Acute respiratory failure with hypoxia 05/19/2022 05/19/2022 Malnutrition of mild degree 04/27/2022 04/22/2023 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 04/23/2022 11/24/2022 Double vision 07/26/2017 09/30/2018 Sixth nerve palsy of left eye 07/25/2017 09/30/2018 Headache(784.0) 09/08/2015 Abdominal pain, left lower quadrant 09/08/2015 Pain in limb 09/08/2015 SOB (shortness of breath) documented as of this encounter (statuses as of 06/29/2023) [facility] History of Past illness Narrative* Problem Noted Date Diagnosed Date Resolved Date GA (acute kidney injury) 05/19/2022 Epistaxis 05/19/2022 05/19/2022 Acute respiratory failure with hypoxia 05/19/2022 05/19/2022 Malnutrition of mild degree 04/27/2022 04/22/2023 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 04/23/2022 11/24/2022 Double vision 07/26/2017 09/30/2018 Sixth nerve palsy of left eye 07/25/2017 09/30/2018 Headache(784.0) 09/08/2015 Abdominal pain, left lower quadrant 09/08/2015 Pain in limb 09/08/2015 SOB (shortness of breath) documented as of this encounter (statuses as of 06/30/2023) [address]22 History of Past illness Narrative* Problem Noted Date Diagnosed Date Resolved Date GA (acute kidney injury) 05/19/2022 Epistaxis 05/19/2022 05/19/2022 Acute respiratory failure with hypoxia 05/19/2022 05/19/2022 Malnutrition of mild degree 04/27/2022 04/22/2023 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 04/23/2022 11/24/2022 Double vision 07/26/2017 09/30/2018 Sixth nerve palsy of left eye 07/25/2017 09/30/2018 Headache(784.0) 09/08/2015 Abdominal pain, left lower quadrant 09/08/2015 Pain in limb 09/08/2015 SOB (shortness of breath) documented as of this encounter (statuses as of 06/30/2023) [facility] History of Past illness Narrative* Problem Noted Date Diagnosed Date Resolved Date GA (acute kidney injury) 05/19/2022 Epistaxis 05/19/2022 05/19/2022 Acute respiratory failure with hypoxia 05/19/2022 05/19/2022 Malnutrition of mild degree 04/27/2022 04/22/2023 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 04/23/2022 11/24/2022 Double vision 07/26/2017 09/30/2018 Sixth nerve palsy of left eye 07/25/2017 09/30/2018 Headache(784.0) 09/08/2015 Abdominal pain, left lower quadrant 09/08/2015 Pain in limb 09/08/2015 SOB (shortness of breath) documented as of this encounter (statuses as of 07/01/2023) [facility] History of Past illness Narrative* Problem Noted Date Diagnosed Date Resolved Date GA (acute kidney injury) 05/19/2022 Epistaxis 05/19/2022 05/19/2022 Acute respiratory failure with hypoxia 05/19/2022 05/19/2022 Malnutrition of mild degree 04/27/2022 04/22/2023 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 04/23/2022 11/24/2022 Double vision 07/26/2017 09/30/2018 Sixth nerve palsy of left eye 07/25/2017 09/30/2018 Headache(784.0) 09/08/2015 Abdominal pain, left lower quadrant 09/08/2015 Pain in limb 09/08/2015 SOB (shortness of breath) documented as of this encounter (statuses as of 07/01/2023) [address]22 History of Past illness Narrative* Problem Noted Date Diagnosed Date Resolved Date GA (acute kidney injury) 05/19/2022 Epistaxis 05/19/2022 05/19/2022 Acute respiratory failure with hypoxia 05/19/2022 05/19/2022 Malnutrition of mild degree 04/27/2022 04/22/2023 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 04/23/2022 11/24/2022 Double vision 07/26/2017 09/30/2018 Sixth nerve palsy of left eye 07/25/2017 09/30/2018 Headache(784.0) 09/08/2015 Abdominal pain, left lower quadrant 09/08/2015 Pain in limb 09/08/2015 SOB (shortness of breath) documented as of this encounter (statuses as of 07/13/2023) [address]30-2022 History of Past illness Narrative* Problem Noted Date Diagnosed Date Resolved Date GA (acute kidney injury) 05/19/2022 Epistaxis 05/19/2022 05/19/2022 Acute respiratory failure with hypoxia 05/19/2022 05/19/2022 Malnutrition of mild degree 04/27/2022 04/22/2023 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 04/23/2022 11/24/2022 Double vision 07/26/2017 09/30/2018 Sixth nerve palsy of left eye 07/25/2017 09/30/2018 Headache(784.0) 09/08/2015 Abdominal pain, left lower quadrant 09/08/2015 Pain in limb 09/08/2015 SOB (shortness of breath) documented as of this encounter (statuses as of 07/16/2023) [address]22 History of Past illness Narrative* Problem Noted Date Diagnosed Date Resolved Date GA (acute kidney injury) 05/19/2022 Epistaxis 05/19/2022 05/19/2022 Acute respiratory failure with hypoxia 05/19/2022 05/19/2022 Malnutrition of mild degree 04/27/2022 04/22/2023 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 04/23/2022 11/24/2022 Double vision 07/26/2017 09/30/2018 Sixth nerve palsy of left eye 07/25/2017 09/30/2018 Headache(784.0) 09/08/2015 Abdominal pain, left lower quadrant 09/08/2015 Pain in limb 09/08/2015 SOB (shortness of breath) documented as of this encounter (statuses as of 07/17/2023) [facility] History of Past illness Narrative* Problem Noted Date Diagnosed Date Resolved Date GA (acute kidney injury) 05/19/2022 Epistaxis 05/19/2022 05/19/2022 Acute respiratory failure with hypoxia 05/19/2022 05/19/2022 Malnutrition of mild degree 04/27/2022 04/22/2023 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 04/23/2022 11/24/2022 Double vision 07/26/2017 09/30/2018 Sixth nerve palsy of left eye 07/25/2017 09/30/2018 Headache(784.0) 09/08/2015 Abdominal pain, left lower quadrant 09/08/2015 Pain in limb 09/08/2015 SOB (shortness of breath) documented as of this encounter (statuses as of 07/20/2023) [facility] History of Past illness Narrative* Problem Noted Date Diagnosed Date Resolved Date GA (acute kidney injury) 05/19/2022 Epistaxis 05/19/2022 05/19/2022 Acute respiratory failure with hypoxia 05/19/2022 05/19/2022 Malnutrition of mild degree 04/27/2022 04/22/2023 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 04/23/2022 11/24/2022 Double vision 07/26/2017 09/30/2018 Sixth nerve palsy of left eye 07/25/2017 09/30/2018 Headache(784.0) 09/08/2015 Abdominal pain, left lower quadrant 09/08/2015 Pain in limb 09/08/2015 SOB (shortness of breath) documented as of this encounter (statuses as of 07/22/2023) [facility] History of Past illness Narrative* Problem Noted Date Diagnosed Date Resolved Date GA (acute kidney injury) 05/19/2022 Epistaxis 05/19/2022 05/19/2022 Acute respiratory failure with hypoxia 05/19/2022 05/19/2022 Malnutrition of mild degree 04/27/2022 04/22/2023 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 04/23/2022 11/24/2022 Double vision 07/26/2017 09/30/2018 Sixth nerve palsy of left eye 07/25/2017 09/30/2018 Headache(784.0) 09/08/2015 Abdominal pain, left lower quadrant 09/08/2015 Pain in limb 09/08/2015 SOB (shortness of breath) documented as of this encounter (statuses as of 07/29/2023) [facility] History of Past illness Narrative* Problem Noted Date Diagnosed Date Resolved Date GA (acute kidney injury) 05/19/2022 Epistaxis 05/19/2022 05/19/2022 Acute respiratory failure with hypoxia 05/19/2022 05/19/2022 Malnutrition of mild degree 04/27/2022 04/22/2023 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 04/23/2022 11/24/2022 Double vision 07/26/2017 09/30/2018 Sixth nerve palsy of left eye 07/25/2017 09/30/2018 Headache(784.0) 09/08/2015 Abdominal pain, left lower quadrant 09/08/2015 Pain in limb 09/08/2015 SOB (shortness of breath) documented as of this encounter (statuses as of 08/03/2023) [facility] History of Past illness Narrative* Problem Noted Date Diagnosed Date Resolved Date GA (acute kidney injury) 05/19/2022 Epistaxis 05/19/2022 05/19/2022 Acute respiratory failure with hypoxia 05/19/2022 05/19/2022 Malnutrition of mild degree 04/27/2022 04/22/2023 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 04/23/2022 11/24/2022 Double vision 07/26/2017 09/30/2018 Sixth nerve palsy of left eye 07/25/2017 09/30/2018 Headache(784.0) 09/08/2015 Abdominal pain, left lower quadrant 09/08/2015 Pain in limb 09/08/2015 SOB (shortness of breath) documented as of this encounter (statuses as of 08/04/2023) [facility] History of Past illness Narrative* Problem Noted Date Diagnosed Date Resolved Date GA (acute kidney injury) 05/19/2022 Epistaxis 05/19/2022 05/19/2022 Acute respiratory failure with hypoxia 05/19/2022 05/19/2022 Malnutrition of mild degree 04/27/2022 04/22/2023 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 04/23/2022 11/24/2022 Double vision 07/26/2017 09/30/2018 Sixth nerve palsy of left eye 07/25/2017 09/30/2018 Headache(784.0) 09/08/2015 Abdominal pain, left lower quadrant 09/08/2015 Pain in limb 09/08/2015 SOB (shortness of breath) documented as of this encounter (statuses as of 08/04/2023) [facility] History of Past illness Narrative* Problem Noted Date Diagnosed Date Resolved Date GA (acute kidney injury) 05/19/2022 Epistaxis 05/19/2022 05/19/2022 Acute respiratory failure with hypoxia 05/19/2022 05/19/2022 Malnutrition of mild degree 04/27/2022 04/22/2023 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 04/23/2022 11/24/2022 Double vision 07/26/2017 09/30/2018 Sixth nerve palsy of left eye 07/25/2017 09/30/2018 Headache(784.0) 09/08/2015 Abdominal pain, left lower quadrant 09/08/2015 Pain in limb 09/08/2015 SOB (shortness of breath) documented as of this encounter (statuses as of 08/06/2023) [facility] History of Past illness Narrative* Problem Noted Date Diagnosed Date Resolved Date GA (acute kidney injury) 05/19/2022 Epistaxis 05/19/2022 05/19/2022 Acute respiratory failure with hypoxia 05/19/2022 05/19/2022 Malnutrition of mild degree 04/27/2022 04/22/2023 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 04/23/2022 11/24/2022 Double vision 07/26/2017 09/30/2018 Sixth nerve palsy of left eye 07/25/2017 09/30/2018 Headache(784.0) 09/08/2015 Abdominal pain, left lower quadrant 09/08/2015 Pain in limb 09/08/2015 SOB (shortness of breath) documented as of this encounter (statuses as of 08/11/2023) [facility] History of Past illness Narrative* Problem Noted Date Diagnosed Date Resolved Date GA (acute kidney injury) 05/19/2022 Epistaxis 05/19/2022 05/19/2022 Acute respiratory failure with hypoxia 05/19/2022 05/19/2022 Malnutrition of mild degree 04/27/2022 04/22/2023 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 04/23/2022 11/24/2022 Double vision 07/26/2017 09/30/2018 Sixth nerve palsy of left eye 07/25/2017 09/30/2018 Headache(784.0) 09/08/2015 Abdominal pain, left lower quadrant 09/08/2015 Pain in limb 09/08/2015 SOB (shortness of breath) documented as of this encounter (statuses as of 08/17/2023) [facility] History of Past illness Narrative* Problem Noted Date Diagnosed Date Resolved Date GA (acute kidney injury) 05/19/2022 Epistaxis 05/19/2022 05/19/2022 Acute respiratory failure with hypoxia 05/19/2022 05/19/2022 Malnutrition of mild degree 04/27/2022 04/22/2023 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 04/23/2022 11/24/2022 Double vision 07/26/2017 09/30/2018 Sixth nerve palsy of left eye 07/25/2017 09/30/2018 Headache(784.0) 09/08/2015 Abdominal pain, left lower quadrant 09/08/2015 Pain in limb 09/08/2015 SOB (shortness of breath) documented as of this encounter (statuses as of 08/18/2023) [facility] History of Past illness Narrative* Problem Noted Date Diagnosed Date Resolved Date GA (acute kidney injury) 05/19/2022 Epistaxis 05/19/2022 05/19/2022 Acute respiratory failure with hypoxia 05/19/2022 05/19/2022 Malnutrition of mild degree 04/27/2022 04/22/2023 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 04/23/2022 11/24/2022 Double vision 07/26/2017 09/30/2018 Sixth nerve palsy of left eye 07/25/2017 09/30/2018 Headache(784.0) 09/08/2015 Abdominal pain, left lower quadrant 09/08/2015 Pain in limb 09/08/2015 SOB (shortness of breath) documented as of this encounter (statuses as of 10/21/2023) [facility] History of Past illness Narrative* Problem Noted Date Diagnosed Date Resolved Date GA (acute kidney injury) 05/19/2022 Epistaxis 05/19/2022 05/19/2022 Acute respiratory failure with hypoxia 05/19/2022 05/19/2022 Malnutrition of mild degree 04/27/2022 04/22/2023 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 04/23/2022 11/24/2022 Double vision 07/26/2017 09/30/2018 Sixth nerve palsy of left eye 07/25/2017 09/30/2018 Headache(784.0) 09/08/2015 Abdominal pain, left lower quadrant 09/08/2015 Pain in limb 09/08/2015 SOB (shortness of breath) documented as of this encounter (statuses as of 10/22/2023) [facility] History of Past illness Narrative* Problem Noted Date Diagnosed Date Resolved Date GA (acute kidney injury) 05/19/2022 Epistaxis 05/19/2022 05/19/2022 Acute respiratory failure with hypoxia 05/19/2022 05/19/2022 Malnutrition of mild degree 04/27/2022 04/22/2023 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 04/23/2022 11/24/2022 Double vision 07/26/2017 09/30/2018 Sixth nerve palsy of left eye 07/25/2017 09/30/2018 Headache(784.0) 09/08/2015 Abdominal pain, left lower quadrant 09/08/2015 Pain in limb 09/08/2015 SOB (shortness of breath) documented as of this encounter (statuses as of 10/26/2023) [facility] History of Past illness Narrative* Problem Noted Date Diagnosed Date Resolved Date GA (acute kidney injury) 05/19/2022 Epistaxis 05/19/2022 05/19/2022 Acute respiratory failure with hypoxia 05/19/2022 05/19/2022 Malnutrition of mild degree 04/27/2022 04/22/2023 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 04/23/2022 11/24/2022 Double vision 07/26/2017 09/30/2018 Sixth nerve palsy of left eye 07/25/2017 09/30/2018 Headache(784.0) 09/08/2015 Abdominal pain, left lower quadrant 09/08/2015 Pain in limb 09/08/2015 SOB (shortness of breath) documented as of this encounter (statuses as of 10/28/2023) [facility] History of Past illness Narrative* Problem Noted Date Diagnosed Date Resolved Date GA (acute kidney injury) 05/19/2022 Epistaxis 05/19/2022 05/19/2022 Acute respiratory failure with hypoxia 05/19/2022 05/19/2022 Malnutrition of mild degree 04/27/2022 04/22/2023 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 04/23/2022 11/24/2022 Double vision 07/26/2017 09/30/2018 Sixth nerve palsy of left eye 07/25/2017 09/30/2018 Headache(784.0) 09/08/2015 Abdominal pain, left lower quadrant 09/08/2015 Pain in limb 09/08/2015 SOB (shortness of breath) documented as of this encounter (statuses as of 11/01/2023) [facility] History of Past illness Narrative* Problem Noted Date Diagnosed Date Resolved Date GA (acute kidney injury) 05/19/2022 Epistaxis 05/19/2022 05/19/2022 Acute respiratory failure with hypoxia 05/19/2022 05/19/2022 Malnutrition of mild degree 04/27/2022 04/22/2023 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 04/23/2022 11/24/2022 Double vision 07/26/2017 09/30/2018 Sixth nerve palsy of left eye 07/25/2017 09/30/2018 Headache(784.0) 09/08/2015 Abdominal pain, left lower quadrant 09/08/2015 Pain in limb 09/08/2015 SOB (shortness of breath) documented as of this encounter (statuses as of 11/02/2023) [facility] History of Past illness Narrative* Problem Noted Date Diagnosed Date Resolved Date GA (acute kidney injury) 05/19/2022 Epistaxis 05/19/2022 05/19/2022 Acute respiratory failure with hypoxia 05/19/2022 05/19/2022 Malnutrition of mild degree 04/27/2022 04/22/2023 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 04/23/2022 11/24/2022 Double vision 07/26/2017 09/30/2018 Sixth nerve palsy of left eye 07/25/2017 09/30/2018 Headache(784.0) 09/08/2015 Abdominal pain, left lower quadrant 09/08/2015 Pain in limb 09/08/2015 SOB (shortness of breath) documented as of this encounter (statuses as of 11/03/2023) [facility] History of Past illness Narrative* Problem Noted Date Diagnosed Date Resolved Date GA (acute kidney injury) 05/19/2022 Epistaxis 05/19/2022 05/19/2022 Acute respiratory failure with hypoxia 05/19/2022 05/19/2022 Malnutrition of mild degree 04/27/2022 04/22/2023 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 04/23/2022 11/24/2022 Double vision 07/26/2017 09/30/2018 Sixth nerve palsy of left eye 07/25/2017 09/30/2018 Headache(784.0) 09/08/2015 Abdominal pain, left lower quadrant 09/08/2015 Pain in limb 09/08/2015 SOB (shortness of breath) documented as of this encounter (statuses as of 11/04/2023) [facility] History of Past illness Narrative* Problem Noted Date Diagnosed Date Resolved Date GA (acute kidney injury) 05/19/2022 Epistaxis 05/19/2022 05/19/2022 Acute respiratory failure with hypoxia 05/19/2022 05/19/2022 Malnutrition of mild degree 04/27/2022 04/22/2023 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 04/23/2022 11/24/2022 Double vision 07/26/2017 09/30/2018 Sixth nerve palsy of left eye 07/25/2017 09/30/2018 Headache(784.0) 09/08/2015 Abdominal pain, left lower quadrant 09/08/2015 Pain in limb 09/08/2015 SOB (shortness of breath) documented as of this encounter (statuses as of 11/05/2023) [facility] History of Past illness Narrative* Problem Noted Date Diagnosed Date Resolved Date GA (acute kidney injury) 05/19/2022 Epistaxis 05/19/2022 05/19/2022 Acute respiratory failure with hypoxia 05/19/2022 05/19/2022 Malnutrition of mild degree 04/27/2022 04/22/2023 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 04/23/2022 11/24/2022 Double vision 07/26/2017 09/30/2018 Sixth nerve palsy of left eye 07/25/2017 09/30/2018 Headache(784.0) 09/08/2015 Abdominal pain, left lower quadrant 09/08/2015 Pain in limb 09/08/2015 SOB (shortness of breath) documented as of this encounter (statuses as of 11/09/2023) [facility] History of Past illness Narrative* Problem Noted Date Diagnosed Date Resolved Date GA (acute kidney injury) 05/19/2022 Epistaxis 05/19/2022 05/19/2022 Acute respiratory failure with hypoxia 05/19/2022 05/19/2022 Malnutrition of mild degree 04/27/2022 04/22/2023 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 04/23/2022 11/24/2022 Double vision 07/26/2017 09/30/2018 Sixth nerve palsy of left eye 07/25/2017 09/30/2018 Headache(784.0) 09/08/2015 Abdominal pain, left lower quadrant 09/08/2015 Pain in limb 09/08/2015 SOB (shortness of breath) documented as of this encounter (statuses as of 11/09/2023) [facility] History of Past illness Narrative* Problem Noted Date Diagnosed Date Resolved Date GA (acute kidney injury) 05/19/2022 Epistaxis 05/19/2022 05/19/2022 Acute respiratory failure with hypoxia 05/19/2022 05/19/2022 Malnutrition of mild degree 04/27/2022 04/22/2023 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 04/23/2022 11/24/2022 Double vision 07/26/2017 09/30/2018 Sixth nerve palsy of left eye 07/25/2017 09/30/2018 Headache(784.0) 09/08/2015 Abdominal pain, left lower quadrant 09/08/2015 Pain in limb 09/08/2015 SOB (shortness of breath) documented as of this encounter (statuses as of 11/17/2023) [facility] History of Past illness Narrative* Problem Noted Date Diagnosed Date Resolved Date GA (acute kidney injury) 05/19/2022 Epistaxis 05/19/2022 05/19/2022 Acute respiratory failure with hypoxia 05/19/2022 05/19/2022 Malnutrition of mild degree 04/27/2022 04/22/2023 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 04/23/2022 11/24/2022 Double vision 07/26/2017 09/30/2018 Sixth nerve palsy of left eye 07/25/2017 09/30/2018 Headache(784.0) 09/08/2015 Abdominal pain, left lower quadrant 09/08/2015 Pain in limb 09/08/2015 SOB (shortness of breath) documented as of this encounter (statuses as of 11/23/2023) [facility] History of Past illness Narrative* Problem Noted Date Diagnosed Date Resolved Date GA (acute kidney injury) 05/19/2022 Epistaxis 05/19/2022 05/19/2022 Acute respiratory failure with hypoxia 05/19/2022 05/19/2022 Malnutrition of mild degree 04/27/2022 04/22/2023 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 04/23/2022 11/24/2022 Double vision 07/26/2017 09/30/2018 Sixth nerve palsy of left eye 07/25/2017 09/30/2018 Headache(784.0) 09/08/2015 Abdominal pain, left lower quadrant 09/08/2015 Pain in limb 09/08/2015 SOB (shortness of breath) documented as of this encounter (statuses as of 11/25/2023) [facility] History of Past illness Narrative* Problem Noted Date Diagnosed Date Resolved Date GA (acute kidney injury) 05/19/2022 Epistaxis 05/19/2022 05/19/2022 Acute respiratory failure with hypoxia 05/19/2022 05/19/2022 Malnutrition of mild degree 04/27/2022 04/22/2023 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 04/23/2022 11/24/2022 Double vision 07/26/2017 09/30/2018 Sixth nerve palsy of left eye 07/25/2017 09/30/2018 Headache(784.0) 09/08/2015 Abdominal pain, left lower quadrant 09/08/2015 Pain in limb 09/08/2015 SOB (shortness of breath) documented as of this encounter (statuses as of 11/30/2023) [facility] History of Past illness Narrative* Problem Noted Date Diagnosed Date Resolved Date GA (acute kidney injury) 05/19/2022 Epistaxis 05/19/2022 05/19/2022 Acute respiratory failure with hypoxia 05/19/2022 05/19/2022 Malnutrition of mild degree 04/27/2022 04/22/2023 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 04/23/2022 11/24/2022 Double vision 07/26/2017 09/30/2018 Sixth nerve palsy of left eye 07/25/2017 09/30/2018 Headache(784.0) 09/08/2015 Abdominal pain, left lower quadrant 09/08/2015 Pain in limb 09/08/2015 SOB (shortness of breath) documented as of this encounter (statuses as of 12/01/2023) [facility] History of Past illness Narrative* Problem Noted Date Diagnosed Date Resolved Date GA (acute kidney injury) 05/19/2022 Epistaxis 05/19/2022 05/19/2022 Acute respiratory failure with hypoxia 05/19/2022 05/19/2022 Malnutrition of mild degree 04/27/2022 04/22/2023 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 04/23/2022 11/24/2022 Double vision 07/26/2017 09/30/2018 Sixth nerve palsy of left eye 07/25/2017 09/30/2018 Headache(784.0) 09/08/2015 Abdominal pain, left lower quadrant 09/08/2015 Pain in limb 09/08/2015 SOB (shortness of breath) documented as of this encounter (statuses as of 12/02/2023) [facility] History of Past illness Narrative* Problem Noted Date Diagnosed Date Resolved Date GA (acute kidney injury) 05/19/2022 Epistaxis 05/19/2022 05/19/2022 Acute respiratory failure with hypoxia 05/19/2022 05/19/2022 Malnutrition of mild degree 04/27/2022 04/22/2023 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 04/23/2022 11/24/2022 Double vision 07/26/2017 09/30/2018 Sixth nerve palsy of left eye 07/25/2017 09/30/2018 Headache(784.0) 09/08/2015 Abdominal pain, left lower quadrant 09/08/2015 Pain in limb 09/08/2015 SOB (shortness of breath) documented as of this encounter (statuses as of 12/07/2023) [facility] History of Past illness Narrative* Problem Noted Date Diagnosed Date Resolved Date GA (acute kidney injury) 05/19/2022 Epistaxis 05/19/2022 05/19/2022 Acute respiratory failure with hypoxia 05/19/2022 05/19/2022 Malnutrition of mild degree 04/27/2022 04/22/2023 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 04/23/2022 11/24/2022 Double vision 07/26/2017 09/30/2018 Sixth nerve palsy of left eye 07/25/2017 09/30/2018 Headache(784.0) 09/08/2015 Abdominal pain, left lower quadrant 09/08/2015 Pain in limb 09/08/2015 SOB (shortness of breath) documented as of this encounter (statuses as of 12/08/2023) [facility] of Past illness Narrative* Problem Noted Date Diagnosed Date Resolved Date GA (acute kidney injury) 05/19/2022 Epistaxis 05/19/2022 05/19/2022 Acute respiratory failure with hypoxia 05/19/2022 05/19/2022 Malnutrition of mild degree 04/27/2022 04/22/2023 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 04/23/2022 11/24/2022 Double vision 07/26/2017 09/30/2018 Sixth nerve palsy of left eye 07/25/2017 09/30/2018 Headache(784.0) 09/08/2015 Abdominal pain, left lower quadrant 09/08/2015 Pain in limb 09/08/2015 SOB (shortness of breath) documented as of this encounter (statuses as of 12/09/2023) [facility] of Past illness Narrative* Problem Noted Date Diagnosed Date Resolved Date GA (acute kidney injury) 05/19/2022 Epistaxis 05/19/2022 05/19/2022 Acute respiratory failure with hypoxia 05/19/2022 05/19/2022 Malnutrition of mild degree 04/27/2022 04/22/2023 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 04/23/2022 11/24/2022 Double vision 07/26/2017 09/30/2018 Sixth nerve palsy of left eye 07/25/2017 09/30/2018 Headache(784.0) 09/08/2015 Abdominal pain, left lower quadrant 09/08/2015 Pain in limb 09/08/2015 SOB (shortness of breath) documented as of this encounter (statuses as of 12/10/2023) [facility] History of Past illness Narrative* Problem Noted Date Diagnosed Date Resolved Date GA (acute kidney injury) 05/19/2022 Epistaxis 05/19/2022 05/19/2022 Acute respiratory failure with hypoxia 05/19/2022 05/19/2022 Malnutrition of mild degree 04/27/2022 04/22/2023 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 04/23/2022 11/24/2022 Double vision 07/26/2017 09/30/2018 Sixth nerve palsy of left eye 07/25/2017 09/30/2018 Headache(784.0) 09/08/2015 Abdominal pain, left lower quadrant 09/08/2015 Pain in limb 09/08/2015 SOB (shortness of breath) documented as of this encounter (statuses as of 12/23/2023) [facility] of Past illness Narrative* Problem Noted Date Diagnosed Date Resolved Date GA (acute kidney injury) 05/19/2022 Epistaxis 05/19/2022 05/19/2022 Acute respiratory failure with hypoxia 05/19/2022 05/19/2022 Malnutrition of mild degree 04/27/2022 04/22/2023 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 04/23/2022 11/24/2022 Double vision 07/26/2017 09/30/2018 Sixth nerve palsy of left eye 07/25/2017 09/30/2018 Headache(784.0) 09/08/2015 Abdominal pain, left lower quadrant 09/08/2015 Pain in limb 09/08/2015 SOB (shortness of breath) documented as of this encounter (statuses as of 12/23/2023) [facility] of Past illness Narrative* Problem Noted Date Diagnosed Date Resolved Date GA (acute kidney injury) 05/19/2022 Epistaxis 05/19/2022 05/19/2022 Acute respiratory failure with hypoxia 05/19/2022 05/19/2022 Malnutrition of mild degree 04/27/2022 04/22/2023 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 04/23/2022 11/24/2022 Double vision 07/26/2017 09/30/2018 Sixth nerve palsy of left eye 07/25/2017 09/30/2018 Headache(784.0) 09/08/2015 Abdominal pain, left lower quadrant 09/08/2015 Pain in limb 09/08/2015 SOB (shortness of breath) documented as of this encounter (statuses as of 12/24/2023) [facility] of Past illness Narrative* Problem Noted Date Diagnosed Date Resolved Date GA (acute kidney injury) 05/19/2022 Epistaxis 05/19/2022 05/19/2022 Acute respiratory failure with hypoxia 05/19/2022 05/19/2022 Malnutrition of mild degree 04/27/2022 04/22/2023 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 04/23/2022 11/24/2022 Double vision 07/26/2017 09/30/2018 Sixth nerve palsy of left eye 07/25/2017 09/30/2018 Headache(784.0) 09/08/2015 Abdominal pain, left lower quadrant 09/08/2015 Pain in limb 09/08/2015 SOB (shortness of breath) documented as of this encounter (statuses as of 12/29/2023) [facility] of Past illness Narrative* Problem Noted Date Diagnosed Date Resolved Date GA (acute kidney injury) 05/19/2022 Epistaxis 05/19/2022 05/19/2022 Acute respiratory failure with hypoxia 05/19/2022 05/19/2022 Malnutrition of mild degree 04/27/2022 04/22/2023 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 04/23/2022 11/24/2022 Double vision 07/26/2017 09/30/2018 Sixth nerve palsy of left eye 07/25/2017 09/30/2018 Headache(784.0) 09/08/2015 Abdominal pain, left lower quadrant 09/08/2015 Pain in limb 09/08/2015 SOB (shortness of breath) documented as of this encounter (statuses as of 12/30/2023) [facility] of Past illness Narrative* Problem Noted Date Diagnosed Date Resolved Date GA (acute kidney injury) 05/19/2022 Epistaxis 05/19/2022 05/19/2022 Acute respiratory failure with hypoxia 05/19/2022 05/19/2022 Malnutrition of mild degree 04/27/2022 04/22/2023 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 04/23/2022 11/24/2022 Double vision 07/26/2017 09/30/2018 Sixth nerve palsy of left eye 07/25/2017 09/30/2018 Headache(784.0) 09/08/2015 Abdominal pain, left lower quadrant 09/08/2015 Pain in limb 09/08/2015 SOB (shortness of breath) documented as of this encounter (statuses as of 01/04/2024) [facility] History of Present illness Narrative* Soraya Cavazos - 05/15/2022 11:32 AM EDT Incidental Lung Nodule Enrollment Call attempt: 1st Attempt Call status: Complete Enrolled in Lung Nodule program: Referred Lung Nodule outreach: Needs outreach Lung Nodule Program Location: [place] Letter sent [facility] History of Present illness Narrative* RT Carson(R) [...] 2022 TIME: 12:39 PM [facility] Miscellaneous Notes* Telephone Encounter - Candace Fabian APRN.CNP - 04/20/2022 12:[address] Kirkpatrick is back in office 04/21/2022 and will address this at that time Candace Fabian APRN.CNP [facility] Miscellaneous Notes* Telephone Encounter - Dixie Doss - 04/17/2022 3:01 PM EDT Called patient to schedule an appointment with Dr. Hughes. Had to leave a voicemail. Asked that hereturn my call at his convenience. documented in this [facility]07-29-2022 Miscellaneous Notes* Telephone Encounter - Chary Coleman - 04/17/2022 9:10 AM EDT Pt called to advise his left big toe is turning black. Not the nail, only the toe. Message sent to ENGAGEMENT LIAISON. [facility] History of Present illness Narrative* RT Jose(R) [...] 15, 2022 6:09 PM [facility] Miscellaneous Notes* Telephone Encounter - Jyotsna Andino - 04/15/2022 8:35 AM EDT Reached out to patient and LVM to get scheduled for a Bilateral EMG with Dr. Craig Johns on 04/28/2022. Jyotsna Andino documented [facility] Miscellaneous Notes* Telephone Encounter - Jyotsna Andino [...] 16. Is the patient coming from a retirement? 17. Do you have any metal fragments in your eyes or head? no If YES please get an orbital x-ray BEFORE patient leaves. 18.Are you claustrophobic?no 19. Have you done any child care supervisor or physical therapy in the past? noIf yes Where? (If not within [facility], patient needs to sign a medical records release) 20. What day and time is best for you? anytime 21. What [facility] facility would you like to go to? [facility] 22. What is the best number to reach you back at? [phone] 23. If the order states with and without contrast look at their age, they may need blood work done.If they are over 60 they need a BUN/Creatinine done. ROUTE TO [facility] FOR INSURANCE APPROVAL, UNLESS ITS MEDICARE/STRAIGHT MEDICAID documented in [facility] encounter[facility] [place] [facility] History of Present illness Narrative* Malgorzata Kirkpatrick MD - 04/14/2022 2:57 PM EDT Images from the original note were not included. [facility] [place] [facility] Phone: Date of Evaluation: 04/14/2022 Patient Name: Shilo Hathaway : 1950 Subjective: Patient presents with: New Patient . 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 All prescriptions have been APPROPRIATELY filled. No suspiciousactivity was identified. 04/14/2022 by Malgorzata Kirkpatrick MD Past Medical History: PAST MEDICAL HISTORY Diagnosis Date Aortoiliac occlusive disease (HCC) Atherosclerotic heart disease of [place] coronary artery without angina pectoris Carotid artery occlusion Carotid artery stenosis Cerebrovascular accident (CVA) ([facility]) Coronary arteriosclerosis [place] 1998 Depressive disorder Disc disorder of lumbar region Diverticulitis of colon Diverticulitis of colon Essential tremor Gastroesophageal reflux disease Generalized anxiety disorder Hiatal hernia History of myocardial infarction Hyperlipidemia Hypertension Intervertebral disc disorder of lumbar region with myelopathy Irritable bowel syndrome Myocardial infarction (HCC) Old myocardial infarction Peripheral vascular disease ([facility]) PERS HX COLONIC POLYPS Preoperative testing 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 Cut Off Machine Helper: PSCB Transcribe Date/Time: Mar 01 2022 11:06A [...] file. This note was partially generated using [employer] voice recognition system. * Brenda Isidro MA [...] patient is not nervous/anxious. documented in this encounterEast [place] [facility]07-[facility] Miscellaneous Notes* Telephone Encounter - Paulina Severino MD - 03/31/2022 3:16 PM EDT The following approved medication requests have been transmitted electronically. Signed Prescriptions Disp Refills traMADol (ULTRAM) 50 mg tablet 40 tablet 0 Sig: Take 1 tablet by mouth every 6 hours as needed for pain. NEO Class: C-IV BALJEET: No Paulina Severino MD documented in this encounterEast [place] [facility]07-11-[facility] History of Present illness Narrative* Landen Milner PA-C - 03/30/2022 3:16 PM EDT NEUROSURGERY FOLLOW UP OFFICE NOTE Landen Milner PA-C Date of visit: March 30, 2022 Patient Name: Mr.John Linus Hathaway Date of : 1950 Current Age: [age] year old Sex: male MRN/E# [id number] Last Office Visit: Visit date not found [...] occlusive disease (HCC) Atherosclerotic heart disease of [place] coronary artery without angina pectoris Carotid artery occlusion Carotid artery stenosis Cerebrovascular accident (CVA) ([facility]) Coronary arteriosclerosis [place] 1998 Depressive disorder Disc disorder of lumbar region Diverticulitis of colon Diverticulitis of colon Essential tremor Gastroesophageal reflux disease Generalized anxiety disorder Hiatal hernia History of myocardial infarction Hyperlipidemia Hypertension Intervertebral disc disorder of lumbar region with myelopathy Irritable bowel syndrome Myocardial infarction (HCC) Old myocardial infarction Peripheral vascular disease ([facility]) PERS HX COLONIC POLYPS Preoperative testing 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 Landen Milner PA-C documented in this encounterEast [place] [facility]07-[facility] History of Present illness Narrative* Paulina Severino [...] occlusive disease (HCC) Atherosclerotic heart disease of [place] coronary artery without angina pectoris Carotid artery occlusion Carotid artery stenosis Cerebrovascular accident (CVA) (HCC) Coronary arteriosclerosis [place] 1998 Depressive disorder Disc disorder of lumbar [...] breath) Thrombosis of right femoral-femoral bypass graft ([facility]) Type 2 diabetes mellitus ([facility]) PHYSICAL EXAMINATION BP (!) 167/45 [...] 31, 2022 3:19 PM documented in this encounterEast [place] [facility]07-06-2022 Miscellaneous Notes* Telephone Encounter - Halley Morris [...] notify patient. Halley Morris documented in this encounterEast [place] [facility]07-05-2022 Miscellaneous Notes* Telephone Encounter - Landen Clement MD - 03/24/2022 3:01 PM EDT Reviewed. * Telephone Encounter - Tracy Lynn Ma - 03/24/2022 2:26 PM EDT Blood sugar readings on docs desk for review. Please advise, thanks. documented in this [facility]-05[facility]20[facility] Miscellaneous Notes* Telephone Encounter - Marci Mckeon Ma - 03/24/2022 2:40 PM EDT Duplicate documented in this [facility]07-05-2022 Miscellaneous Notes* Telephone Encounter - Marci Mckeon Ma - 03/24/2022 2:39 PM EDT duplicate documented in this [facility]06-28[facility]20[facility] Miscellaneous Notes* Telephone Encounter - Davin August PA-C - 03/17/2022 8:52 PM EDT Reviewed 03/01/22 lumbar MRI. pateint underwent L4-5 IL JAZMINE at [facility] and reports very little improvement from that [...] neurosurgeryvisit. Davin August PA-C documented in this [facility]-24-[facility] History of Present illness Narrative* Paulina Severino MD - 03/13/2022 11:00 AM EDT Initial contact with patient post discharge, spoke to dereck Collado RN . Patient identified by name and . SUMMARY: -Pt discharged from [facility] on 03/02/22. -Follow up appointment on [...] 13, 2022 2:50 PM documented in this encounterEast [place] [facility]06-15-2022 History of Present illness Narrative* Dereck Cook - 03/04/2022 3:12 PM EDT POPULATION HEALTH NAVIGATION OUTREACH Action/FYI Spoke to patient and hospital follow up scheduled. Pt identified by name and : YES, via phone Outreach Outcome/Action Spoke to patient or caregiver: Patient scheduled Did you use a PCP flex slot to schedule this appointment? No Reason for Outreach Community Monitoring Pool Payer: Payor: [facility] MEDICARE / Plan: [facility] MEDICARE HMO / Product Type: HMO / [...] (TCM) COMMUNITY MONITORING PROGRAM Provider Action/FYI: [facility]- second attempt - Left [...] a voicemail to return my call at [phone]. Encouraged patient to schedule a follow up appointment with PCP by calling the appointment center at [phone]. Thank you Outreach ended Dereck Collado RN, BSN Care Coordination team * Dereck Collado RN - 03/03/2022 1:34 PM EDT TCM Home Visit Referral Source of Stratification: [facility] Admission Status: Discharged Readmission Risk Score: [...] (TCM) COMMUNITY MONITORING PROGRAM Provider Action/FYI: [facility] 03-02-22- initial outreach - Left [...] a voicemail to return my call at [phone]. Will attempt to outreach to patient again later today or on next business day 03-04-22 if no return call from patient. Thank you. Outreach ended Dereck Collado RN, BSN Care Coordination team documented in this encounterEast [place] [facility]06-03-2022 Miscellaneous Notes* Telephone Encounter - Archana Child [...] a in the family. 's cell - [phone] [facility] [phone] * Telephone Encounter - Nancy Elizabeth RN - 02/20/2022 12:32 PM EDT Mrs Galeano calling [phone] Pt has been doing the PT and had signed up for more but has cancelled them as he is in a lot pain Per last [employer] message, pt was to do one more session and make a follow up appt Pt has not done that as he wants something done now and not later Please advise documented in this encounterEast [place] [facility]05-27-2022 History of Present illness Narrative* Thierry Stokes, [...] improve tolerance for yard work (Not Met) [place] in home exercise program. (progressing toward goal) Patient will decrease pain rating by 2 points to meet minimal clinical important difference for numeric pain rating scale. (Not Met) Patient Goals: decrease pain, improve tolerance for upright physical Activity (Not Met) Planned Interventions, Frequency, and Duration: 1x/week, 4 weeks Total Number of Visits Planned: 4 Patient to be seen for Therapeutic exercise (84417);Manual therapy (29202);Therapeutic activities (42598);Gait Training (00506);Patient/Family/Caregiver Education;Functional training;General Condition ing PLAN FOR NEXT [...] mechanics Thierry Stokes PT documented in this encounterEast [place] [facility]05-19-2022 History of Present illness Narrative* Sandra Alba, STONE DRILLER HELPER - 02/05/2022 12:18 PM EDT Episode Visit [...] 43 Sandra Alba PTA documented in this encounterEast [place] [facility]05-11-2022 History of Present illness Narrative* Ronna Oro [...] 41 Ronna Oro PTA documented in this encounterEast [place] [facility] Hospital05-03-2022 History of Present illness Narrative* Loan Hennessy [...] Loan Hennessy PT DPT documented in this encounterEast [place] [facility] Hospital05-02-2022 Miscellaneous Notes* Telephone Encounter - Love Robertson - 01/19/2022 1:39 PM EDT Shilo is wondering if Dr. Severino can send in refills for his medications and do them for a three month supply? He would like to start doing three month orders through [facility] of the mail to home. This will save Shilo some money. Shilo just filled a lot of his medications from [facility] from his old primary care provider, but is wanting to have Dr. Severino prescribe the refills and take over, and wants to have him send in the three months home delivery if possible. Love Robertson documented in this encounterEast [place] [facility] Hospital04-29-2022 History of Present illness Narrative* Soham Blancas, [...] order to improve tolerance for yard work [place] in home exercise program. Patient will decrease pain rating by 2 points to meet minimal clinical important difference for numeric pain rating scale. Patient Goals: decrease pain, improve tolerance for upright physical activity Planned Interventions, Frequency, and Duration: Current Frequency: 1x/week (1-2 visits per week) Duration: 8 weeks Total Number of Visits Planned: 10 Planned Treatment Interventions: Therapeutic exercise (23974);Neuromuscular re- education (03074);Manual therapy (83019);Therapeutic activities (31407);Self- correction management (47808);Gait Training (69422);Patient/Family/Caregiver Education Patient demonstrates good understanding of plan [...] occlusive disease (HCC) Atherosclerotic heart disease of [place] coronary artery without angina pectoris Carotid artery occlusion Carotid artery stenosis Cerebrovascular accident (CVA) (HCC) Coronary arteriosclerosis [place] 1998 Depressive disorder Disc disorder of lumbar [...] Soham Blancas PT, DPT documented in this encounterEast [place] [facility]04-14-2022 History of Present illness Narrative* Davin August PA-C - 01/01/2022 10:27 AM EDT Images from the original note were not included. Davin August PA-C [facility] [address] [address] 01/01/2022 ASSESSMENT AND PLAN: Assessment : Encounter [...] today with this patient visit. This includes [id number] time, review of chart records regarding conservative care history, spine- pertinent imaging, and communication/care coordination with referring provider, problem-specific history-taking and counseling/education regarding treatment options. cc: Paulina Severino [address] [place] [address] [place] [address] Results of consultation to be transmitted via electronic medical record for those providers who practice within [facility] or with access to [employer] via MD Connect, or via letter. ######################################################################## [...] occlusive disease (HCC) Atherosclerotic heart disease of [place] coronary artery without angina pectoris Carotid artery occlusion Carotid artery stenosis Cerebrovascular accident (CVA) (HCC) Coronary arteriosclerosis [place] 1998 Depressive disorder Disc disorder of lumbar [...] STUDIES: See discussion above documented in this encounterEast [place] [facility] Hospital04-12-2022 Instructions* Patient Instructions* Brigitte Dias APRN.CNP - 12/30/2021 1:55 PM EDT 1. Increase NPH 45 units at bedtime. 2. Continue lantus and humalog 3. Schedule your eye exam 4. Follow up in 4 months Brigitte Dias, MSN, SERVICE DEPARTMENT MANAGER, ENGAGEMENT LIAISON-C, CDE Endocrinology [facility] Office [facility]/[place] [address] Fax: documented in this encounterEast [place] Regional Hospital04-12-2022 History of Present illness Narrative* Brigitte Dias APRN.CNP - 12/30/2021 1:30 PM EDT Reason for Consultation: DM Type 2 Referring Physician: Landen Clement [address] [place] [address] HISTORY OF PRESENT ILLNESS Mr. 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 Plan: Managed per [...] which included preparing to see the patient, [id number] patient care, completing clinical documentation, obtaining and/or reviewing separately obtained history, performing a medically appropriate examination, counseling and educating the pat ient/family/caregiver, ordering medications, tests, or procedures, independently interpreting results (not separately reported) and communicating results to the patient/family/caregiver. Brigitte iDas, MSN, SERVICE DEPARTMENT MANAGER, ENGAGEMENT LIAISON-C, CDE Endocrinology [facility] Medical Office [facility]/[address], [address] [place], [place] [address] Fax: documented in this encounterEast [place] [facility] Hospital04-06-2022 Miscellaneous Notes* Telephone Encounter - Kenneth Annika - 12/24/2021 9:31 AM EDT LM for patient about moving appointment. Told him to call if it didn't work. documented in this encounterEast [place] [facility] Hospital04-04-2022 History of Present illness Narrative* Paulina Severino [...] MEDICAL HISTORY Diagnosis Date Aortoiliac occlusive disease ([facility]) Atherosclerotic heart disease of [place] coronary artery without angina pectoris Carotid artery occlusion Carotid artery stenosis Cerebrovascular accident (CVA) ([facility]) Coronary arteriosclerosis [place] 1998 Depressive disorder Disc disorder of lumbar region Diverticulitis of colon Diverticulitis of colon Essential tremor Gastroesophageal reflux disease Generalized anxiety disorder Hiatal hernia History of myocardial infarction Hyperlipidemia Hypertension Intervertebral disc disorder of lumbar region with myelopathy Irritable bowel syndrome Myocardial infarction ([facility]) Old myocardial infarction Peripheral vascular disease ([facility]) PERS HX COLONIC POLYPS Preoperative testing 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 Pain not improving. Plan: [place] [facility], DISCONTINUED: gabapentin (NEURONTIN) 300 mg capsule [...] and complete. Electronically Signed: Paulina Severino MD. December 22, 2021 2:45 PM documented in this encounterEast [place] [facility] Hospital11-06-2017 History of Past illness Narrative* Problem Noted Date Resolved Date Double vision 07/26/2017 09/30/2018 Sixth nerve palsy of left eye 07/25/2017 Headache(784.0) 09/08/2015 Abdominal pain, left lower quadrant 09/08/2015 Pain in limb 09/08/2015 SOB (shortness of breath) 2020 Myocardial infarction 04/04/2021 documented as of this encounter (statuses as of 12/22/2021) [facility] [place] [facility] History of Past illness Narrative* Problem Noted Date Resolved Date Double vision 07/26/2017 09/30/2018 Sixth nerve palsy of left eye 07/25/2017 Headache(784.0) 09/08/2015 Abdominal pain, left lower quadrant 09/08/2015 Pain in limb 09/08/2015 SOB (shortness of breath) 2020 Myocardial infarction 04/04/2021 documented as of this encounter (statuses as of 12/24/2021) [facility] [place] [facility] History of Past illness Narrative* Problem Noted Date Resolved Date Double vision 07/26/2017 09/30/2018 Sixth nerve palsy of left eye 07/25/2017 Headache(784.0) 09/08/2015 Abdominal pain, left lower quadrant 09/08/2015 Pain in limb 09/08/2015 SOB (shortness of breath) 2020 Myocardial infarction 04/04/2021 documented as of this encounter (statuses as of 12/30/2021) [facility] [place] [facility] of Past illness Narrative* Problem Noted Date Resolved Date Double vision 07/26/2017 09/30/2018 Sixth nerve palsy of left eye 07/25/2017 Headache(784.0) 09/08/2015 Abdominal pain, left lower quadrant 09/08/2015 Pain in limb 09/08/2015 SOB (shortness of breath) 2020 Myocardial infarction 04/04/2021 documented as of this encounter (statuses as of 01/01/2022) [facility] [place] [facility] of [facility] illness Narrative* Problem Noted Date Resolved Date Double vision 07/26/2017 09/30/2018 Sixth nerve palsy of left eye 07/25/2017 Headache(784.0) 09/08/2015 Abdominal pain, left lower quadrant 09/08/2015 Pain in limb 09/08/2015 SOB (shortness of breath) 2020 Myocardial infarction 04/04/2021 documented as of this encounter (statuses as of 01/16/2022) [facility] [place] [facility] of [facility] Narrative* Problem Noted Date Resolved Date Double vision 07/26/2017 09/30/2018 Sixth nerve palsy of left eye 07/25/2017 Headache(784.0) 09/08/2015 Abdominal pain, left lower quadrant 09/08/2015 Pain in limb 09/08/2015 SOB (shortness of breath) 2020 Myocardial infarction 04/04/2021 documented as of this encounter (statuses as of 01/19/2022) [facility] [place] [facility] Narrative* Problem Noted Date Resolved Date Double vision 07/26/2017 09/30/2018 Sixth nerve palsy of left eye 07/25/2017 Headache(784.0) 09/08/2015 Abdominal pain, left lower quadrant 09/08/2015 Pain in limb 09/08/2015 SOB (shortness of breath) 2020 Myocardial infarction 04/04/2021 documented as of this encounter (statuses as of 01/20/2022) [facility] [place] [facility] of [facility] Narrative* Problem Noted Date Resolved Date Double vision 07/26/2017 09/30/2018 Sixth nerve palsy of left eye 07/25/2017 Headache(784.0) 09/08/2015 Abdominal pain, left lower quadrant 09/08/2015 Pain in limb 09/08/2015 SOB (shortness of breath) 2020 Myocardial infarction 04/04/2021 documented as of this encounter (statuses as of 01/28/2022) [facility] [place] [facility] of [facility] Narrative* Problem Noted Date Resolved Date Double vision 07/26/2017 09/30/2018 Sixth nerve palsy of left eye 07/25/2017 Headache(784.0) 09/08/2015 Abdominal pain, left lower quadrant 09/08/2015 Pain in limb 09/08/2015 SOB (shortness of breath) 2020 Myocardial infarction 04/04/2021 documented as of this encounter (statuses as of 02/05/2022) [facility] [place] [facility] Narrative* Problem Noted Date Resolved Date Double vision 07/26/2017 09/30/2018 Sixth nerve palsy of left eye 07/25/2017 Headache(784.0) 09/08/2015 Abdominal pain, left lower quadrant 09/08/2015 Pain in limb 09/08/2015 SOB (shortness of breath) 2020 Myocardial infarction 04/04/2021 documented as of this encounter (statuses as of 02/13/2022) [facility] [place] [facility] Narrative* Problem Noted Date Resolved Date Double vision 07/26/2017 09/30/2018 Sixth nerve palsy of left eye 07/25/2017 Headache(784.0) 09/08/2015 Abdominal pain, left lower quadrant 09/08/2015 Pain in limb 09/08/2015 SOB (shortness of breath) 2020 Myocardial infarction 04/04/2021 documented as of this encounter (statuses as of 02/20/2022) [facility] [place] [facility] Narrative* Problem Noted Date Resolved Date Double vision 07/26/2017 09/30/2018 Sixth nerve palsy of left eye 07/25/2017 Headache(784.0) 09/08/2015 Abdominal pain, left lower quadrant 09/08/2015 Pain in limb 09/08/2015 SOB (shortness of breath) 2020 Myocardial infarction 04/04/2021 documented as of this encounter (statuses as of 03/04/2022) [facility] [place] [facility] Narrative* Problem Noted Date Resolved Date Double vision 07/26/2017 09/30/2018 Sixth nerve palsy of left eye 07/25/2017 Headache(784.0) 09/08/2015 Abdominal pain, left lower quadrant 09/08/2015 Pain in limb 09/08/2015 SOB (shortness of breath) 2020 Myocardial infarction 04/04/2021 documented as of this encounter (statuses as of 03/07/2022) [facility] [place] [facility] Narrative* Problem Noted Date Resolved Date Double vision 07/26/2017 09/30/2018 Sixth nerve palsy of left eye 07/25/2017 Headache(784.0) 09/08/2015 Abdominal pain, left lower quadrant 09/08/2015 Pain in limb 09/08/2015 SOB (shortness of breath) 2020 Myocardial infarction 04/04/2021 documented as of this encounter (statuses as of 03/13/2022) [facility] [place] [facility] Narrative* Problem Noted Date Resolved Date Double vision 07/26/2017 09/30/2018 Sixth nerve palsy of left eye 07/25/2017 Headache(784.0) 09/08/2015 Abdominal pain, left lower quadrant 09/08/2015 Pain in limb 09/08/2015 SOB (shortness of breath) 2020 Myocardial infarction 04/04/2021 documented as of this encounter (statuses as of 03/18/2022) [facility] [place] [facility] Narrative* Problem Noted Date Resolved Date Double vision 07/26/2017 09/30/2018 Sixth nerve palsy of left eye 07/25/2017 Headache(784.0) 09/08/2015 Abdominal pain, left lower quadrant 09/08/2015 Pain in limb 09/08/2015 SOB (shortness of breath) 2020 Myocardial infarction 04/04/2021 documented as of this encounter (statuses as of 03/24/2022) [facility] [place] [facility] Narrative* Problem Noted Date Resolved Date Double vision 07/26/2017 09/30/2018 Sixth nerve palsy of left eye 07/25/2017 Headache(784.0) 09/08/2015 Abdominal pain, left lower quadrant 09/08/2015 Pain in limb 09/08/2015 SOB (shortness of breath) 2020 Myocardial infarction 04/04/2021 documented as of this encounter (statuses as of 03/24/2022) [facility] [place] [facility] Narrative* Problem Noted Date Resolved Date Double vision 07/26/2017 09/30/2018 Sixth nerve palsy of left eye 07/25/2017 Headache(784.0) 09/08/2015 Abdominal pain, left lower quadrant 09/08/2015 Pain in limb 09/08/2015 SOB (shortness of breath) 2020 Myocardial infarction 04/04/2021 documented as of this encounter (statuses as of 03/25/2022) [facility]-2017 History of Past illness Narrative* Problem Noted Date Resolved Date Double vision 07/26/2017 09/30/2018 Sixth nerve palsy of left eye 07/25/2017 Headache(784.0) 09/08/2015 Abdominal pain, left lower quadrant 09/08/2015 Pain in limb 09/08/2015 SOB (shortness of breath) 2020 Myocardial infarction 04/04/2021 documented as of this encounter (statuses as of 03/25/2022) [facility]2017 History of Past illness Narrative* Problem Noted Date Resolved Date Double vision 07/26/2017 09/30/2018 Sixth nerve palsy of left eye 07/25/2017 Headache(784.0) 09/08/2015 Abdominal pain, left lower quadrant 09/08/2015 Pain in limb 09/08/2015 SOB (shortness of breath) 2020 Myocardial infarction 04/04/2021 documented as of this encounter (statuses as of 03/30/2022) [facility] History of Past illness Narrative* Problem Noted Date Resolved Date Double vision 07/26/2017 09/30/2018 Sixth nerve palsy of left eye 07/25/2017 Headache(784.0) 09/08/2015 Abdominal pain, left lower quadrant 09/08/2015 Pain in limb 09/08/2015 SOB (shortness of breath) 2020 Myocardial infarction 04/04/2021 documented as of this encounter (statuses as of 03/31/2022) [facility] History of Past illness Narrative* Problem Noted Date Resolved Date Double vision 07/26/2017 09/30/2018 Sixth nerve palsy of left eye 07/25/2017 Headache(784.0) 09/08/2015 Abdominal pain, left lower quadrant 09/08/2015 Pain in limb 09/08/2015 SOB (shortness of breath) 2020 Myocardial infarction 04/04/2021 documented as of this encounter (statuses as of 03/31/2022) [facility] History of Past illness Narrative* Problem Noted Date Resolved Date Double vision 07/26/2017 09/30/2018 Sixth nerve palsy of left eye 07/25/2017 Headache(784.0) 09/08/2015 Abdominal pain, left lower quadrant 09/08/2015 Pain in limb 09/08/2015 SOB (shortness of breath) 2020 Myocardial infarction 04/04/2021 documented as of this encounter (statuses as of 04/14/2022) [facility] History of Past illness Narrative* Problem Noted Date Resolved Date Double vision 07/26/2017 09/30/2018 Sixth nerve palsy of left eye 07/25/2017 Headache(784.0) 09/08/2015 Abdominal pain, left lower quadrant 09/08/2015 Pain in limb 09/08/2015 SOB (shortness of breath) 2020 Myocardial infarction 04/04/2021 documented as of this encounter (statuses as of 04/14/2022) [facility] History of Past illness Narrative* Problem Noted Date Resolved Date Double vision 07/26/2017 09/30/2018 Sixth nerve palsy of left eye 07/25/2017 Headache(784.0) 09/08/2015 Abdominal pain, left lower quadrant 09/08/2015 Pain in limb 09/08/2015 SOB (shortness of breath) 2020 Myocardial infarction 04/04/2021 documented as of this encounter (statuses as of 04/15/2022) [facility] History of Past illness Narrative* Problem Noted Date Resolved Date Double vision 07/26/2017 09/30/2018 Sixth nerve palsy of left eye 07/25/2017 Headache(784.0) 09/08/2015 Abdominal pain, left lower quadrant 09/08/2015 Pain in limb 09/08/2015 SOB (shortness of breath) 2020 Myocardial infarction 04/04/2021 documented as of this encounter (statuses as of 04/16/2022) [facility] History of Past illness Narrative* Problem Noted Date Resolved Date Double vision 07/26/2017 09/30/2018 Sixth nerve palsy of left eye 07/25/2017 Headache(784.0) 09/08/2015 Abdominal pain, left lower quadrant 09/08/2015 Pain in limb 09/08/2015 SOB (shortness of breath) 2020 Myocardial infarction 04/04/2021 documented as of this encounter (statuses as of 04/17/2022) [facility] History of Past illness Narrative* Problem Noted Date Resolved Date Double vision 07/26/2017 09/30/2018 Sixth nerve palsy of left eye 07/25/2017 Headache(784.0) 09/08/2015 Abdominal pain, left lower quadrant 09/08/2015 Pain in limb 09/08/2015 SOB (shortness of breath) 2020 Myocardial infarction 04/04/2021 documented as of this encounter (statuses as of 04/20/2022) [facility] History of Past illness Narrative* Problem Noted Date Resolved Date Double vision 07/26/2017 09/30/2018 Sixth nerve palsy of left eye 07/25/2017 Headache(784.0) 09/08/2015 Abdominal pain, left lower quadrant 09/08/2015 Pain in limb 09/08/2015 SOB (shortness of breath) 2020 Myocardial infarction 04/04/2021 documented as of this encounter (statuses as of 04/21/2022) [facility] History of Past illness Narrative* Problem Noted Date Resolved Date Double vision 07/26/2017 09/30/2018 Sixth nerve palsy of left eye 07/25/2017 Headache(784.0) 09/08/2015 Abdominal pain, left lower quadrant 09/08/2015 Pain in limb 09/08/2015 SOB (shortness of breath) 2020 Myocardial infarction 04/04/2021 documented as of this encounter (statuses as of 04/24/2022) [facility] History of Past illness Narrative* Problem Noted Date Resolved Date Double vision 07/26/2017 09/30/2018 Sixth nerve palsy of left eye 07/25/2017 Headache(784.0) 09/08/2015 Abdominal pain, left lower quadrant 09/08/2015 Pain in limb 09/08/2015 SOB (shortness of breath) 2020 Myocardial infarction 04/04/2021 documented as of this encounter (statuses as of 04/28/2022) [facility] History of Past illness Narrative* Problem Noted Date Resolved Date Double vision 07/26/2017 09/30/2018 Sixth nerve palsy of left eye 07/25/2017 Headache(784.0) 09/08/2015 Abdominal pain, left lower quadrant 09/08/2015 Pain in limb 09/08/2015 SOB (shortness of breath) 2020 Myocardial infarction 04/04/2021 documented as of this encounter (statuses as of 05/15/2022) [facility] note* Diagnosis Hypertension- Primary Unspecified essential hypertension Type 2 diabetes mellitus with diabetic neuropathy, with long-term current use of insulin ([facility]) Painful diabetic neuropathy (HCC) Type II or unspecified type diabetes mellitus with neurological manifestations, not stated as uncontrolled Acute right-sided low back pain with right-sided sciatica Bacterial sinusitis Unspecified sinusitis (chronic) [facility] Diagnosis Type 2 diabetes mellitus with [...] unspecified obesity type [facility] Diagnosis Acute right-sided low back pain with right-sided sciatica [facility] Diagnosis Acute right-sided low back pain with right-sided sciatica [facility] Diagnosis Acute right-sided low back pain with right-sided sciatica- Primary [facility] Diagnosis Acute right-sided low back pain with right-sided sciatica- Primary [facility] Diagnosis Acute right-sided low back pain with right-sided sciatica- Primary [facility] Diagnosis Acute right-sided low back pain with right-sided sciatica- Primary [facility] Diagnosis Spinal stenosis of lumbar region [...] neuropathy, with long-term current use of insulin ([facility]) Hospital discharge follow-up Other follow-up [...] (HCC)- Primary Gangrene PAD (peripheral artery disease) ([facility]) Peripheral vascular disease, unspecified Atherosclerosis [...] sciatica present- Primary [facility] Diagnosis PVD (peripheral vascular disease) ([facility])- Primary Peripheral vascular disease, unspecified Atherosclerosis of [place] artery of left lower extremity with gangrene (HCC) Atherosclerosis of [place] arteries of the extremities with gangrene PVD (peripheral vascular disease) (HCC) Peripheral vascular disease, unspecified Atherosclerosis of [place] artery of left lower extremity with gangrene (HCC) Atherosclerosis of [place] arteries of the extremities with gangrene [facility] Lung nodules- Primary Other nonspecific abnormal finding of lung field [facility] Diagnosis Post-operative pain Other acute postoperative pain [facility] Diagnosis Post-operative pain Other acute postoperative pain S/P vascular bypass- Primary Other postprocedural status History of above knee amputation, unspecified laterality ([facility]) HFrEF (heart failure with reduced ejection fraction) ([facility]) Heart failure, unspecified NSTEMI (non-ST elevated myocardial infarction) ([facility]) Acute myocardial infarction, subendocardial infarction, episode of care unspecified Coronary artery disease involving [place] coronary artery of [place] heart with angina pectoris ([facility]) Primary hypertension Unspecified essential hypertension Mixed hyperlipidemia Type 2 diabetes mellitus with diabetic peripheral angiopathy without gangrene, with long-term current use of insulin ([facility]) [facility] Diagnosis S/P AKA (above knee amputation), left ([facility])- Primary S/P vascular bypass Other postprocedural status PVD (peripheral vascular disease) (HCC) Peripheral vascular disease, unspecified Aortoiliac occlusive disease (HCC) Other arterial embolism and thrombosis of abdominal aorta S/P vascular bypass- Primary Other postprocedural status History of above knee amputation, unspecified laterality ([facility]) HFrEF (heart failure with reduced ejection fraction) ([facility]) Heart failure, unspecified NSTEMI (non-ST elevated myocardial infarction) ([facility]) Acute myocardial infarction, subendocardial infarction, episode of care unspecified Coronary artery disease involving [place] coronary artery of [place] heart with angina pectoris ([facility]) Primary hypertension Unspecified essential hypertension Mixed hyperlipidemia Type 2 diabetes mellitus with diabetic peripheral angiopathy without gangrene, with long-term current use of insulin ([facility]) documented in this encounter [facility] note* Diagnosis Post-operative pain Other acute postoperative pain S/P vascular bypass- Primary Other postprocedural status History of above knee amputation, unspecified laterality ([facility]) HFrEF (heart failure with reduced ejection fraction) ([facility]) Heart failure, unspecified NSTEMI (non-ST elevated myocardial infarction) ([facility]) Acute myocardial infarction, subendocardial infarction, episode of care unspecified Coronary artery disease involving [place] coronary artery of [place] heart with angina pectoris ([facility]) Primary hypertension Unspecified essential hypertension Mixed hyperlipidemia Type 2 diabetes mellitus with diabetic peripheral angiopathy without gangrene, with long-term current use of insulin ([facility]) documented in this encounter [facility] note* Diagnosis Type 2 diabetes mellitus ([facility]) Type II or unspecified type diabetes mellitus without mention of complication, not stated as uncontrolled Hyperlipidemia Other and unspecified hyperlipidemia S/P vascular bypass- Primary Other postprocedural status History of above knee amputation, unspecified laterality ([facility]) HFrEF (heart failure with reduced ejection fraction) ([facility]) Heart failure, unspecified NSTEMI (non-ST elevated myocardial infarction) ([facility]) Acute myocardial infarction, subendocardial infarction, episode of care unspecified Coronary artery disease involving [place] coronary artery of [place] heart with angina pectoris ([facility]) Primary hypertension Unspecified essential hypertension Mixed hyperlipidemia Type 2 diabetes mellitus with diabetic peripheral angiopathy without gangrene, with long-term current use of insulin ([facility]) documented in this encounter [facility] note* Diagnosis Type 2 diabetes mellitus with diabetic peripheral angiopathy without gangrene, with long-term current use of insulin ([facility])- Primary Encounter for immunization Need for other specified prophylactic vaccination against single bacterial disease Painful diabetic neuropathy ([facility]) Type II or unspecified type diabetes mellitus with neurological manifestations, not stated as uncontrolled S/P AKA (above knee amputation) unilateral, left ([facility]) S/P vascular bypass- Primary Other postprocedural status History of above knee amputation, unspecified laterality ([facility]) HFrEF (heart failure with reduced ejection fraction) ([facility]) Heart failure, unspecified NSTEMI (non-ST elevated myocardial infarction) (HCC) Acute myocardial infarction, subendocardial infarction, episode of care unspecified Coronary artery disease involving [place] coronary artery of [place] heart with angina pectoris ([facility]) Primary hypertension Unspecified essential hypertension Mixed hyperlipidemia Type 2 diabetes mellitus with diabetic peripheral angiopathy without gangrene, with long-term current use of insulin ([facility]) [facility] Diagnosis Type 2 diabetes mellitus with diabetic peripheral angiopathy without gangrene, with long-term current use of insulin ([facility])- Primary Primary hypertension Unspecified essential hypertension Mixed hyperlipidemia Anemia, unspecified type [facility] Diagnosis Bilateral carotid artery stenosis Occlusion and stenosis of carotid artery without mention of cerebral infarction History of bilateral carotid endarterectomy [facility] Diagnosis S/P AKA (above knee amputation), left ([facility])- Primary documented in this encounter [...] ClinicEvaluation note* Diagnosis PVD (peripheral vascular disease) ([facility])- Primary Peripheral vascular disease, unspecified [facility] Diagnosis Coronary artery disease involving [place] coronary artery of [place] heart without angina pectoris documented in this [...] both lower extremities [facility] Diagnosis Difficulty walking- Primary Difficulty in walking Weakness of both lower extremities [facility]* Diagnosis Type 2 diabetes mellitus with diabetic peripheral angiopathy without gangrene, with long-term current use of insulin ([facility])- Primary S/P AKA (above knee amputation) unilateral, left (HCC) HFrEF (heart failure with reduced ejection fraction) (HCC) Heart failure, unspecified Sciatic nerve pain, unspecified laterality Peripheral vascular disease (HCC) Peripheral vascular disease, unspecified Coronary artery disease involving [place] coronary artery of [place] heart with angina pectoris ([facility]) [facility] Diagnosis Difficulty walking- Primary Difficulty in walking Weakness of both lower extremities [facility] Diagnosis Difficulty walking- Primary Difficulty in walking Weakness of both lower extremities [facility]* Diagnosis Difficulty walking- Primary Difficulty [...] not elsewhere classified [facility]* Diagnosis Difficulty walking- Primary Difficulty in walking Weakness of both lower extremities [facility]* Diagnosis Difficulty walking- Primary Difficulty in walking Weakness of both lower extremities [facility]* Diagnosis Type 2 diabetes mellitus with diabetic peripheral angiopathy without gangrene, with long-term current use of insulin ([facility]) [facility] Diagnosis Positive FIT (fecal immunochemical test)- Primary Nonspecific abnormal finding in stool contents History of colonic polyps Personal history of colonic polyps [facility] Diagnosis Difficulty walking- Primary Difficulty in walking Weakness of both lower extremities [facility] Diagnosis Acute right-sided low back pain with right-sided sciatica- Primary Spinal stenosis of lumbar region with neurogenic claudication Spinal stenosis, lumbar region, with neurogenic claudication [facility] Diagnosis PVD (peripheral vascular disease) ([facility])- Primary Peripheral vascular disease, unspecified Aortoiliac occlusive disease ([facility]) Other arterial embolism and thrombosis of abdominal aorta Open wound of fourth toe of right foot, initial encounter Atherosclerosis of aorta ([facility]) Atherosclerosis of aorta Diminished pulses in lower extremity Other symptoms involving cardiovascular system Acute right-sided low back pain with right-sided sciatica Spinal stenosis of lumbar region with neurogenic claudication Spinal stenosis, lumbar region, with neurogenic claudication [facility] Diagnosis Acute right-sided low back pain with right-sided sciatica- Primary Spinal stenosis of lumbar region with neurogenic claudication Spinal stenosis, lumbar region, with neurogenic claudication Acute right-sided low back pain with right-sided sciatica Spinal stenosis of lumbar region with neurogenic claudication Spinal stenosis, lumbar region, with neurogenic claudication [facility] Diagnosis Open wound of fourth toe of right foot, initial encounter- Primary S/P AKA (above knee amputation), left ([facility]) PVD (peripheral vascular disease) ([facility]) Peripheral vascular disease, unspecified Acute right-sided low back pain with right-sided sciatica Spinal stenosis of lumbar region with neurogenic claudication Spinal stenosis, lumbar region, with neurogenic claudication [facility] Diagnosis Non-pressure chronic ulcer of other part of right foot with unspecified severity ([facility])- Primary Type 2 diabetes mellitus with foot ulcer (CODE) ([facility]) Peripheral vascular disease, unspecified ([facility]) Peripheral vascular disease, unspecified Abnormal radiographic examination Other nonspecific (abnormal) findings on radiological and other examinations of body structure Acute right-sided low back pain with right-sided sciatica Spinal stenosis of lumbar region with neurogenic claudication Spinal stenosis, lumbar region, with neurogenic claudication [facility] Diagnosis Non-pressure chronic ulcer of other part of right foot with unspecified severity ([facility]) Abnormal radiographic examination Other nonspecific (abnormal) findings on radiological and other examinations of body structure Acute right-sided low back pain with right-sided sciatica Spinal stenosis of lumbar region with neurogenic claudication Spinal stenosis, lumbar region, with neurogenic claudication [facility] Diagnosis Encounter for immunization- Primary Need for other specified prophylactic vaccination against single bacterial disease Tachycardia Tachycardia, unspecified HFrEF (heart failure with reduced ejection fraction) ([facility]) Heart failure, unspecified Peripheral vascular disease ([facility]) Peripheral vascular disease, unspecified Coronary artery disease involving [place] coronary artery of [place] heart with angina pectoris ([facility]) Abnormal EKG Nonspecific abnormal electrocardiogram (ECG) (EKG) Acute right-sided low back pain with right-sided sciatica Spinal stenosis of lumbar region with neurogenic claudication Spinal stenosis, lumbar region, with neurogenic claudication [facility] Diagnosis Acute right-sided low back pain with right-sided sciatica Spinal stenosis of lumbar region with neurogenic claudication Spinal stenosis, lumbar region, with neurogenic claudication Acute right-sided low back pain with right-sided sciatica Spinal stenosis of lumbar region with neurogenic claudication Spinal stenosis, lumbar region, with neurogenic claudication [facility] Diagnosis Non-pressure chronic ulcer of other part of right foot with unspecified severity ([facility])- Primary Type 2 diabetes mellitus with foot ulcer (CODE) ([facility]) Peripheral vascular disease, unspecified ([facility]) Peripheral vascular disease, unspecified [facility] Diagnosis Non-pressure chronic ulcer of other part of right foot with unspecified severity ([facility])- Primary Type 2 diabetes mellitus with foot ulcer (CODE) ([facility]) Peripheral vascular disease, unspecified ([facility]) Peripheral vascular disease, unspecified Acute right-sided low back pain with right-sided sciatica Spinal stenosis of lumbar region with neurogenic claudication Spinal stenosis, lumbar region, with neurogenic claudication [facility] Diagnosis PVD (peripheral vascular disease) ([facility])- Primary Peripheral vascular disease, unspecified S/P AKA (above knee amputation), left (HCC) Acute right-sided low back pain with right-sided sciatica Spinal stenosis of lumbar region with neurogenic claudication Spinal stenosis, lumbar region, with neurogenic claudication [facility] Diagnosis Non-pressure chronic ulcer of other part of right foot with necrosis of bone ([facility])- Primary Gangrene of toe of right foot (HCC) Type 2 diabetes mellitus with foot ulcer (CODE) ([facility]) Peripheral vascular disease, unspecified (HCC) Peripheral vascular disease, unspecified Acute right-sided low back pain with right-sided sciatica Spinal stenosis of lumbar region with neurogenic claudication Spinal stenosis, lumbar region, with neurogenic claudication [facility] Diagnosis Aortoiliac occlusive disease ([facility])- Primary Other arterial embolism and thrombosis of abdominal aorta Gangrene of right foot ([facility]) S/P AKA (above knee amputation) bilateral ([facility]) Lower limb amputation, above knee Coronary arteriosclerosis Coronary atherosclerosis of unspecified type of vessel, [place]ham or graft PAD (peripheral artery disease) ([facility]) Peripheral vascular disease, unspecified Postoperative pain Other acute postoperative pain Chronic bronchitis, unspecified chronic bronchitis type ([facility]) Malnutrition of moderate degree (HCC) Malnutrition of moderate degree HFrEF (heart failure with reduced ejection fraction) ([facility]) Heart failure, unspecified Type 2 diabetes mellitus with diabetic peripheral angiopathy without gangrene, with long-term current use of insulin ([facility]) Coronary artery disease involving port graham coronary artery of [place] heart with angina pectoris ([facility]) Abnormality of gait Falling episodes Lack of coordination [facility] Diagnosis Acute right-sided low back pain with right-sided sciatica Spinal stenosis of lumbar region with neurogenic claudication Spinal stenosis, lumbar region, with neurogenic claudication [facility] Diagnosis PVD (peripheral vascular disease) ([facility])- Primary Peripheral vascular disease, unspecified S/P AKA (above knee amputation), right (HCC) Hx of AKA (above knee amputation), left (HCC) [facility] Diagnosis S/P AKA (above knee amputation), right (HCC)- Primary Hx of AKA (above knee amputation), left (HCC) [facility] Diagnosis Aortoiliac occlusive disease (HCC)- Primary Other arterial embolism and thrombosis of abdominal aorta S/P AKA (above knee amputation) bilateral (HCC) Lower limb amputation, above knee [facility]* Diagnosis Depressive disorder Depressive disorder, not elsewhere classified [facility]* Diagnosis Type 2 diabetes mellitus with diabetic peripheral angiopathy without gangrene, with long-term current use of insulin ([facility]) [facility]* Diagnosis Mixed hyperlipidemia [facility] in [facility] Diagnosis Mixed hyperlipidemia [facility]* Diagnosis Type 2 diabetes mellitus ([facility]) Type II or unspecified type diabetes mellitus without mention of complication, not stated as uncontrolled Hyperlipidemia Other and unspecified hyperlipidemia [facility]* Diagnosis Type 2 diabetes mellitus with diabetic peripheral angiopathy without gangrene, with long-term current use of insulin ([facility])- Primary Spinal stenosis of lumbar region with neurogenic claudication Spinal stenosis, lumbar region, with neurogenic claudication PAD (peripheral artery disease) ([facility]) Peripheral vascular disease, unspecified Status post above-knee amputation of both lower extremities ([facility]) HFrEF (heart failure with reduced ejection fraction) ([facility]) Heart failure, unspecified Coronary arteriosclerosis Coronary atherosclerosis of unspecified type of vessel, [place] or graft [facility]* Diagnosis Carotid stenosis, asymptomatic, bilateral- Primary [facility]* Diagnosis Hyperkalemia- Primary Hyperpotassemia [facility]* Diagnosis Carotid stenosis, asymptomatic, bilateral- Primary History of bilateral carotid endarterectomy History of above-knee amputation of both lower extremities (HCC) Amputation stump pain (HCC) (HCC) Other amputation stump complication Aortoiliac occlusive disease ([facility]) Other arterial embolism and thrombosis of abdominal aorta [facility]* Diagnosis Type 2 diabetes mellitus with diabetic peripheral angiopathy without gangrene, with long-term current use of insulin ([facility])- Primary Encounter for immunization Need for other specified prophylactic vaccination against single bacterial disease [facility]* Diagnosis Type 2 diabetes mellitus with diabetic peripheral angiopathy without gangrene, with long-term current use of insulin ([facility]) HFrEF (heart failure with reduced ejection fraction) ([facility])- Primary Heart failure, unspecified Atherosclerosis of [place] coronary artery of [place] heart without angina pectoris Mixed hyperlipidemia PAD (peripheral artery disease) ([facility]) Peripheral vascular disease, unspecified Hypertension Unspecified essential hypertension S/P vascular bypass Other postprocedural status History of CVA (cerebrovascular accident) Transient ischemic attack (TIA), and cerebral infarction without residual deficits Type 2 diabetes mellitus with diabetic neuropathy, with long-term current use of insulin ([facility]) [facility] Diagnosis HFrEF (heart failure with reduced ejection fraction) ([facility])- Primary Heart failure, unspecified Atherosclerosis of [place] coronary artery of [place] heart without angina pectoris Mixed hyperlipidemia PAD (peripheral artery disease) ([facility]) Peripheral vascular disease, unspecified Hypertension Unspecified essential hypertension S/P vascular bypass Other postprocedural status History of CVA (cerebrovascular accident) Transient ischemic attack (TIA), and cerebral infarction without residual deficits Type 2 diabetes mellitus with diabetic neuropathy, with long-term current use of insulin ([facility]) [facility]* Diagnosis Neuropathic pain- Primary Neuralgia, neuritis, and radiculitis, unspecified [facility]* Diagnosis HFrEF (heart failure with reduced ejection fraction) ([facility]) Heart failure, unspecified Atherosclerosis of [place] coronary artery of [place] heart without angina pectoris Mixed hyperlipidemia PAD (peripheral artery disease) ([facility]) Peripheral vascular disease, unspecified Hypertension Unspecified essential hypertension [facility]* Diagnosis Viral URI with cough- Primary Acute upper respiratory infections of unspecified site Type 2 diabetes mellitus with diabetic peripheral angiopathy without gangrene, with long-term current use of insulin ([facility]) [facility]* Diagnosis Neuropathic pain- Primary Neuralgia, neuritis, and radiculitis, unspecified [facility]* Diagnosis Medicare annual wellness visit, subsequent- Primary Routine general medical examination at a health care facility Atherosclerosis of [place] coronary artery of [place] heart without angina pectoris Mixed hyperlipidemia Type 2 diabetes mellitus with diabetic neuropathy, with long-term current use of insulin ([facility]) PAD (peripheral artery disease) ([facility]) Peripheral vascular disease, unspecified S/P AKA (above knee amputation), right ([facility]) S/P AKA (above knee amputation) unilateral, left (HCC) [facility]* Diagnosis Hyperkalemia- Primary Hyperpotassemia Neuropathic pain Neuralgia, neuritis, and radiculitis, unspecified [facility]* Diagnosis Hyperkalemia- Primary Hyperpotassemia Neuropathic pain Neuralgia, neuritis, and radiculitis, unspecified [facility]* Diagnosis Hyperkalemia- Primary Hyperpotassemia Hospital discharge follow-up Other follow-up examination Type 2 diabetes mellitus with diabetic peripheral angiopathy without gangrene, with long-term current use of insulin (HCC) HFrEF (heart failure with reduced ejection fraction) ([facility]) Heart failure, unspecified Neuropathic pain Neuralgia, neuritis, and radiculitis, unspecified [facility]* Diagnosis Hospital discharge follow-up- Primary Other follow-up examination History of non-ST elevation myocardial infarction (NSTEMI) Old myocardial infarction Superficial thrombophlebitis of left upper extremity Hypertension Unspecified essential hypertension Type 2 diabetes mellitus with diabetic neuropathy, with long-term current use of insulin ([facility]) PVD (peripheral vascular disease) (HCC) Peripheral vascular disease, unspecified Stage 3a chronic kidney disease (HCC) Neuropathic pain Neuralgia, neuritis, and radiculitis, unspecified [facility]* Diagnosis Type 2 diabetes mellitus with diabetic peripheral angiopathy without gangrene, with long-term current use of insulin ([facility]) Neuropathic pain Neuralgia, neuritis, and radiculitis, unspecified documented in this encounter [facility]* Diagnosis Coronary artery disease involving [place] coronary artery of [place] heart without angina pectoris- Primary S/P coronary artery stent placement Postsurgical percutaneous transluminal coronary angioplasty status Primary hypertension Unspecified essential hypertension Mixed hyperlipidemia Type 2 diabetes mellitus with diabetic neuropathy, with long-term current use of insulin (HCC) PVD (peripheral vascular disease) (HCC) Peripheral vascular disease, unspecified [facility]* Diagnosis Type 2 diabetes mellitus with diabetic peripheral angiopathy without gangrene, with long-term current use of insulin ([facility]) documented in this encounter [facility] note* Diagnosis Type 2 diabetes mellitus with diabetic peripheral angiopathy without gangrene, with long-term current use of insulin ([facility])- Primary Coronary arteriosclerosis Coronary atherosclerosis of unspecified type of vessel, [place] or graft Mixed hyperlipidemia Primary hypertension Unspecified essential hypertension Anemia, unspecified type [facility]* Diagnosis Coronary arteriosclerosis- Primary Coronary atherosclerosis of unspecified type of vessel, [place] or graft Type 2 diabetes mellitus with diabetic peripheral angiopathy without gangrene, with long-term current use of insulin ([facility]) Chronic anticoagulation Long-term (current) use of anticoagulants S/P AKA (above knee amputation) bilateral ([facility]) Lower limb amputation, above knee Mixed hyperlipidemia [facility]* Diagnosis HFrEF (heart failure with reduced ejection fraction) ([facility])- Primary Heart failure, unspecified CAD S/P percutaneous coronary angioplasty Coronary atherosclerosis of [place] coronary artery Mixed hyperlipidemia Peripheral artery disease Peripheral vascular disease, unspecified Hypertension Unspecified essential hypertension S/P vascular bypass Other postprocedural status History of CVA (cerebrovascular accident) Transient ischemic attack (TIA), and cerebral infarction without residual deficits Type 2 diabetes mellitus with diabetic neuropathy, with long-term current use of insulin ([facility]) Coronary arteriosclerosis Coronary atherosclerosis of unspecified type of vessel, [place] or graft [facility]* Diagnosis Type 2 diabetes mellitus with diabetic neuropathy, with long-term current use of insulin ([facility])- Primary PAD (peripheral artery disease) Peripheral vascular disease, unspecified [facility]* Diagnosis Neuropathic pain- Primary Neuralgia, neuritis, and radiculitis, unspecified Neuropathic pain Neuralgia, neuritis, and radiculitis, unspecified documented in this encounter [facility] note* Diagnosis Preoperative examination- Primary Preoperative examination, unspecified Obesity, Class III, BMI >= 40 Morbid obesity History of CVA (cerebrovascular accident) Transient ischemic attack (TIA), and cerebral infarction without residual deficits Coronary artery disease involving [place] coronary artery of [place] heart, unspecified whether angina present HFrEF (heart failure with reduced ejection fraction) ([facility]) Heart failure, unspecified Primary hypertension Unspecified essential hypertension Type 2 diabetes mellitus with diabetic neuropathy, with long-term current use of insulin ([facility]) Peripheral artery disease Peripheral vascular [...] R fem- L fem bypass with B HEAD OF DATA endart -- 2016 DJW - L groin [...] reduced ejection fraction) (HCC) Stable Managed by [facility] Current Rx: Imdur, hydralazine, carvedilol, Procardia, spironolactone Last office visit with cardiology 02/28/2025. EF 40% per PET scan 10/25/2024 * Assessment & Plan Note - Mel Aponte APRN.CNP - 03/28/2025 7:38 PM EDT Associated Problem(s): Coronary artery disease involving port gra[place] coronary artery of [place] heart AL and stetnt 199 STEMI September 2024 S/p PCI to RCA 10/30/2024 [facility]: 50% narrowing of the left main, LAD with multiple lesions, circumflex with severe disease in the RCA with severe calcified disease. He also had in-stent stenosis. He was not recommended for CABG, was recommended for medical treatment. Managed by [facility]. Last office visit 02/28/2025 Denies [...] affect radha-operative course [facility] Diagnosis Preoperative examination- Primary Preoperative examination, unspecified Obesity, Class III, BMI >= 40 Morbid obesity History of CVA (cerebrovascular accident) Transient ischemic attack (TIA), and cerebral infarction without residual deficits Coronary artery disease involving [place] coronary artery of [place] heart, unspecified whether angina present HFrEF (heart failure with reduced ejection fraction) (HCC) Heart failure, unspecified Primary hypertension Unspecified essential hypertension Type 2 diabetes mellitus with diabetic neuropathy, with long-term current use of insulin (HCC) Peripheral artery disease Peripheral vascular disease, unspecified Anemia, unspecified type Carotid stenosis, asymptomatic, bilateral- Primary History of bilateral carotid endarterectomy documented in this encounter [facility] for referral (narrative)* - Pending Review Specialty Diagnoses / Procedures Referred By Contac t Referred To Contact Diagnoses Acute right-sided low back pain with right-sided sciatica Procedures CONSULT TO PHYSICAL THERAPY Davin August PA-C [address] [place] [address] Referral ID Status Reason Start Date Expiration Date V isits Requested Visits Authorized [id number] Pending Review 01/01/2022 04/01/2022 1 1 [facility] for referral (narrative)* Diagnostic Procedure Only (Routine) - Pending Review Specialty Diagnoses / Procedures Referred By Contac t Referred To Contact US IMAGING Diagnoses PVD (peripheral vascular disease) (HCC) S/P AKA (above knee amputation), left (HCC) S/P vascular bypass Procedures US ARTERIAL PVR LOWER NON-INVASIVE PHYSIOLOGIC STUDY EXTREMITY 3 Elizabeth Solis, INEZ.PIANO MECHANIC 1 [facility] [address] [place] [address] Us Imaging Referral ID Status Reason Start Date Expiration Date Visits Requested Visits Authorized [id number] Pending Review Auto-Generat ed Referral 12/15/2022 07/17/2023 1 1 [facility] for referral (narrative)* Diagnostic Procedure Only (Routine) - Closed Specialty Diagnoses / Procedures Referred By Contac t Referred To Contact US IMAGING Diagnoses Bilateral carotid artery stenosis History of bilateral carotid endarterectomy Procedures US CAROTID BILAT Elizabeth Ball APRN.PIANO MECHANIC [address] [place] [address] Us Imaging Referral ID Status Reason Start Date Expiration Date V isits Requested Visits Authorized [id number] Closed Auto-Generate d Referral 08/24/2022 11/01/2022 1 1 [facility] for referral (narrative)* Diagnostic Procedure Only (Routine) - Pending Review Specialty Diagnoses / Procedures Referred By Contac t Referred To Contact US IMAGING Diagnoses PVD (peripheral vascular disease) (HCC) Procedures US ARTERIAL PVR LOWER NON-INVASIVE PHYSIOLOGIC STUDY EXTREMITY 3 nAne Ferraro MD [address] [facility] [address] [place] [address] Us Imaging Referral ID Status Reason Start Date Expiration Date Visits Requested Visits Authorized [id number] Pending Review Auto-Generat ed Referral 06/17/2023 01/14/2024 1 1 [facility] for referral (narrative)* Outpatient Procedure (Routine) - Pending Review Specialty Diagnoses / Procedures Referred By Contac t Referred To Contact [facility] Diagnoses Positive FIT (fecal immunochemical test) History of colonic polyps Procedures COLONOSCOPY DIAGNOSTIC COLONOSCOPY FLX DX W/COLLJ SPEC WHEN PFRMD Jessica Patel PA-C [address] [place] [address] [facility] [address] [place] [address] Referral ID Status Reason Start Date Expiration Date Visits Requested Visits Authorized [id number] Pending Review Auto-Generat ed Referral 01/26/2023 01/27/2024 1 1 [facility] for referral (narrative)* Outpatient Procedure (Routine) - Closed Specialty Diagnoses / Procedures Referred By Contac t Referred To Contact Diagnoses Positive FIT (fecal immunochemical test) History of colonic polyps Procedures COLONOSCOPY DIAGNOSTIC COLONOSCOPY DIAGNOSTIC COLONOSCOPY FLX DX W/COLLJ SPEC WHEN PFRMD Jessica Patel PA-C [address] [place] [address] Roseline Pearson MD [address] [place] [address] Referral ID Status Reason Start Date Expiration Date V isits Requested Visits Authorized [id number] Closed Auto-Generate d Referral 05/26/2023 08/24/2023 1 1 [facility] for referral (narrative)* Diagnostic Procedure Only (Routine) - Closed Specialty Diagnoses / Procedures Referred By Contac t Referred To Contact XR IMAGING Diagnoses Abnormal radiographic examination Procedures XR FEMUR GENERAL 2V AP/LAT LEFT RADIOLOGIC EXAMINATION FEMUR MINIMUM 2 VIEWS Dylan Martinez MD [address] [place] [address] [place] [address] Referral ID Status Reason Start Date Expiration Date V isits Requested Visits Authorized [id number] Closed Auto-Generate d Referral 07/16/2023 08/14/2024 1 1 * Diagnostic Procedure Only (Routine) - Closed Specialty Diagnoses / Procedures Referred By Contac t Referred To Contact XR IMAGING Diagnoses 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) Procedures XR FOOT GENERAL 3V AP/LAT/OBL RIGHT RADEX FOOT COMPLETE MINIMUM 3 VIEWS Dylan Martinez MD [address] [place] [address] [place] [address] Referral ID Status Reason Start Date Expiration Date V isits Requested Visits Authorized [id number] Closed Auto-Generate d Referral 07/16/2023 08/14/2024 1 1 [facility] for referral (narrative)* Diagnostic Procedure Only (Routine) - New Request Specialty Diagnoses / Procedures Referred By Contac t Referred To Contact US IMAGING Diagnoses Carotid stenosis, asymptomatic, bilateral Procedures US CAROTID BILATERAL Elizabeth Ball APRN.PIANO MECHANIC [address] [facility] [address] [place] [address] [place] [address] Referral ID Status Reason Start Date Expiration Date Visits Requested Visits Authorized [id number] New Request Auto-Generat ed Referral 04/03/2024 05/03/2025 1 1 [facility] for referral (narrative)* Outpatient Procedure (Routine) - New Request Specialty Diagnoses / Procedures Referred By Contac t Referred To Contact [facility] Diagnoses HFrEF (heart failure with reduced ejection fraction) (HCC) Atherosclerosis of [place] coronary artery of [place] heart without angina pectoris Mixed hyperlipidemia PAD (peripheral artery disease) (HCC) Essential (primary) hypertension Procedures ECHO ECHO TTHRC R-T 2D W/WOM-MODE COMPL SPEC&COLR Eduin Pruitt APRN.PIANO MECHANIC [address] [place] [address] [facility] [address] [place] [id number] Referral ID Status Reason Start Date Expiration Date Visits Requested Visits Authorized [id number] New Request Auto-Generat ed Referral 07/12/2025 1 1 [facility] for referral (narrative)* Outpatient Procedure (Routine) - Closed Specialty Diagnoses / Procedures Referred By Contac t Referred To Contact [facility] Diagnoses HFrEF (heart failure with reduced ejection fraction) (HCC) Atherosclerosis of [place] coronary artery of [place] heart without angina pectoris Mixed hyperlipidemia PAD (peripheral artery disease) (HCC) Essential (primary) hypertension Procedures ECHO ECHO TTHRC R-T 2D W/WOM-MODE COMPL SPEC&COLR D Eduin Coleman, 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PI[employer]O MECHANIC [address] [place] [address] Fax: [facility] [address] [place] [address] Referral ID Status Reason Start Date Expiration Date V isits Requested Visits Authorized [id number] Closed Auto-Generate d Referral 07/12/2024 07/12/2025 1 1 [facility] for visit Narrative* Auth/Cert Specialty Diagnoses / Procedures Referred By Contac t Referred To Contact Diagnoses Spinal stenosis, unspecified spinal region Procedures NJX DX/THER SBST INTRLMNR LMBR/SAC W/IMG GDN LUMBAR EPIDURAL BLOCK W/INJECTION NON NEUROLYTIC W/IMAGE GUIDANCE [facility] 1 [place] [address] Referral ID Status Reason Start Date Expiration Date Visits Re quested Visits Authorized [id number] 1 1 [facility] for visit Narrative* Diagnostic Procedure Only (Routine) - Closed Specialty Diagnoses / Procedures Referred By Contac t Referred To Contact US IMAGING Diagnoses Bilateral carotid artery stenosis History of bilateral carotid endarterectomy Procedures US CAROTID BILAT Elizabeth Ball, 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PIANO MECH[employer]IC 1 [facility] [address] [place] [address] Us Imaging Referral ID Status Reason Start Date Expiration Date V isits Requested Visits Authorized [id number] Closed Auto-Generate d Referral 08/24/2022 11/01/2022 1 1 [facility] for visit Narrative* Diagnostic Procedure Only (Urgent) - Authorized Specialty Diagnoses / Procedures Referred By Contac t Referred To Contact MOLECULAR & FUNCTIONAL IMAGING Diagnoses Coronary artery disease involving [place] coronary artery of [place] heart without angina pectoris Procedures NM CARDIAC PERF STRESS/PHARM MYOCARDIAL SPECT MULTIPLE STUDIES Davin Moran MD [address] [place] [address] Fax: [facility] [address] [place] [address] Referral ID Status Reason Start Date Expiration Date Visits Requested Visits Authorized [id number] Authorized Auto-Generat ed Referral 04/02/2022 04/18/2023 1 1 [facility] for visit Narrative* Diagnostic Procedure Only (Urgent) - Closed Specialty Diagnoses / Procedures Referred By Contac t Referred To Contact MOLECULAR & FUNCTIONAL IMAGING Diagnoses Coronary artery disease involving [place] coronary artery of [place] heart without angina pectoris Procedures NM CARDIAC PERF STRESS/PHARM MYOCARDIAL SPECT MULTIPLE STUDIES Davin Moran MD [address] [address] [facility] [address] [place] [address] Referral ID Status Reason Start Date Expiration Date V isits Requested Visits Authorized [id number] Closed Auto-Generate d Referral 04/02/2022 04/18/2023 1 1 [facility] for visit Narrative* Outpatient Procedure (Routine) - Closed Specialty Diagnoses / Procedures Referred By Contac t Referred To Contact Diagnoses Positive FIT (fecal immunochemical test) History of colonic polyps Procedures COLONOSCOPY DIAGNOSTIC COLONOSCOPY DIAGNOSTIC COLONOSCOPY FLX DX W/COLLJ SPEC WHEN PFRMD Jessica Patel PA-C [address] [place] [address] Roseline Pearson MD [address] [place] [address] Referral ID Status Reason Start Date Expiration Date V isits Requested Visits Authorized [id number] Closed Auto-Generate d Referral 05/26/2023 08/24/2023 1 1 [facility] for visit Narrative* Diagnostic Procedure Only (Routine) - Closed Specialty Diagnoses / Procedures Referred By Contac t Referred To Contact XR IMAGING Diagnoses Abnormal radiographic examination Procedures XR FEMUR GENERAL 2V AP/LAT LEFT RADIOLOGIC EXAMINATION FEMUR MINIMUM 2 VIEWS Dylan Martinez MD [address] [place] [address] [place] [address] Referral ID Status Reason Start Date Expiration Date V isits Requested Visits Authorized [id number] Closed Auto-Generate d Referral 07/16/2023 08/14/2024 1 1 [facility] for visit Narrative* Diagnostic Procedure Only (Routine) - Closed Specialty Diagnoses / Procedures Referred By Contac t Referred To Contact US IMAGING Diagnoses Carotid stenosis, asymptomatic, bilateral Procedures US CAROTID BILATERAL Elizabeth Ball, 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PIANO MECHANIC [address] [facility] [place] [address] [place] [address] Referral ID Status Reason Start Date Expiration Date V isits Requested Visits Authorized [id number] Closed Auto-Generate d Referral 04/03/2024 05/03/2025 1 1 [facility] for visit Narrative* Outpatient Procedure (Routine) - Closed Specialty Diagnoses / Procedures Referred By Contac t Referred To Contact [facility] Diagnoses HFrEF (heart failure with reduced ejection fraction) (HCC) Atherosclerosis of [place] coronary artery of [place] heart without angina pectoris Mixed hyperlipidemia PAD (peripheral artery disease) (HCC) Essential (primary) hypertension Procedures ECHO ECHO TTHRC R-T 2D W/WOM-MODE COMPL SPEC&COLR D Eduin Coleman, 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PIANO MECHANIC [address] [place] [address] [facility] [address] [place] [address] Referral ID Status Reason Start Date Expiration Date V isits Requested Visits Authorized [id number] Closed Auto-Generate d Referral 07/12/2024 07/12/2025 1 1 [facility] Summary Purpose Family History No Family History [...] Documents on File Type Date Recorded Patient Correctional Manager Expl anation Advance Directive(s) 04/29/2018 7:23 AM Documents on File Type Date Recorded Patient Correctional Manager Expl anation Advance Directive(s) 04/29/2018 7:23 AM Documents on File Type Date Recorded Patient Correctional Manager Expl anation Advance Directive(s) 01/06/2022 6:35 PM Advance Directive(s) 04/29/2018 7:23 AM Documents on File Type Date Recorded Patient Correctional Manager Expl anation Advance Directive(s) 01/06/2022 6:35 PM Advance Directive(s) 04/29/2018 7:23 AM Documents on File Type Date Recorded Patient Correctional Manager Expl anation Advance Directive(s) 02/28/2022 9:57 PM Advance Directive(s) 01/06/2022 6:35 PM Advance Directive(s) 04/29/2018 7:23 AM Documents on File Type Date Recorded Patient Correctional Manager Expl anation Advance Directive(s) 03/06/2022 12:57 PM Advance Directive(s) 02/28/2022 9:57 PM Advance Directive(s) 01/06/2022 6:35 PM Advance Directive(s) 04/29/2018 7:23 AM Documents on File Type Date Recorded Patient Correctional Manager Expl anation Advance Directive(s) 03/06/2022 12:57 PM [...] sciatica Procedures CONSULT TO MUSC/SPINE/OCC MED OFFICE/OUTPATIENT [facility] 60-74 MINUTES Paulina Severino MD [address] [facility] [place] [address] Referral ID Status Reason Start Date Expiration Date Visits Requested Visits Authorized [id number] Pending Review PCP Requested Referral 12/22/2021 12/22/2022 1 1 Specialty Diagnoses / Procedures Referred By Contac t Referred To Contact MR IMAGING Diagnoses Spinal stenosis of lumbar region with neurogenic claudication Procedures MRI LUMBAR SPINE WO IVCON MRI SPINAL CANAL LUMBAR W/O CONTRAST MATERIAL Davin August, PADonitaC [address] [place] [address] Mr Imaging Referral ID Status Reason Start Date Expiration Date Visits Requested Visits Authorized [id number] Pending Review Auto-Generat ed Referral 02/20/2022 03/22/2023 1 1 Specialty Diagnoses / Procedures Referred By Contac t Referred To Contact Diagnoses Spinal stenosis of lumbar region with neurogenic claudication Acute right-sided low back pain with right-sided sciatica Procedures CONSULT TO SPINE INTERVENTION Davin August PA-C [address] [place] [address] Referral ID Status Reason Start Date Expiration Date Visits Requested Visits Authorized [id number] Pending Review PCP Requested Referral 03/17/2022 06/15/2022 3 3 Specialty Diagnoses / Procedures Referred By Contac t Referred To Contact Pain Management Diagnoses Acute midline low back pain, unspecified whether sciatica present Procedures CONSULT TO PAIN MGT Landen Milner PA-C [address] [place] [address] Referral ID Status Reason Start Date Expiration Date Visits Requested Visits Authorized [id number] Ref Not Required PCP Requested Referral 03/30/2022 06/28/2022 3 3 Specialty Diagnoses / Procedures Referred By Contac t Referred To Contact MR IMAGING Diagnoses Spinal stenosis of lumbar region with neurogenic claudication Procedures MRI LUMBAR SPINE WO IVCON MRI SPINAL CANAL LUMBAR W/O CONTRAST MATERIAL Malgorzata Kirkpatrick MD [address] [place] [address] Mr Imaging Referral ID Status Reason Start Date Expiration Date Visits Requested Visits Authorized [id number] Pending Review Auto-Generat ed Referral 04/14/2022 05/14/2023 1 1 Referral ID Status Reason Start Date Expiration Date V isits Requested Visits Authorized [id number] Closed Auto-Generate d Referral 04/14/2022 05/14/2023 1 1 Specialty Diagnoses / Procedures Referred By Contac t Referred To Contact CT IMAGING Diagnoses Disorder of artery or arteriole (HCC) Procedures CTA CHEST (GATED) W IVCON CT ANGIOGRAPHY CHEST W/CONTRAST/NONCONTRAST Christi Jones MD 1 [facility] [address] [place] [address] Ct Imaging Referral ID Status Reason Start Date Expiration Date Visits Requested Visits Authorized [id number] Authorized Auto-Generat ed Referral 04/21/2022 05/21/2023 1 1 Specialty Diagnoses / Procedures Referred By Contac t Referred To Contact CT IMAGING Diagnoses Atherosclerosis of aorta (HCC) Peripheral vascular disease (HCC) Diminished pulses in lower extremity Procedures CTA ABD/PEL LOWER EXTREM W IVCON CTA ABDL AORTA&BI ILIOFEM W/CONTRAST&POSTP Christi Jones MD 1 [facility] [address] [place] [address] Ct Imaging Referral ID Status Reason Start Date Expiration Date Visits Requested Visits Authorized [id number] Authorized Auto-Generat ed Referral 04/21/2022 05/21/2023 1 1 Referral ID Status Reason Start Date Expiration Date V isits Requested Visits Authorized [id number] Closed Auto-Generate d Referral 04/21/2022 05/21/2023 1 1 Referral ID Status Reason Start Date Expiration Date V isits Requested Visits Authorized [id number] Closed Auto-Generate d Referral 04/21/2022 05/21/2023 1 1 Specialty Diagnoses / Procedures Referred By Contac t Referred To Contact Diagnoses S/P AKA (above knee amputation), left (HCC) Procedures CONSULT TO PHYSICAL THERAPY (AG) Elizabeth Ball, INEZ.PIANO MECHANIC 1 [facility] [address] [place] [address] Referral ID Status Reason Start Date Expiration Date Visits Requested Visits Authorized [id number] Ref Not Required PCP Requested Referral 10/23/2022 01/21/2023 1 1 Specialty Diagnoses / Procedures Referred By Contac t Referred To Contact [facility] Diagnoses Difficulty walking Weakness of both lower extremities Procedures PT REHAB FOLLOW UP ORDER THERAPEUTIC EXERCISES RE, EA 15 MIN. Kath Horton, PT [address] [place] [address] [facility] [address] [place] [address] Referral ID Status Reason Start Date Expiration Date Visits Requested Visits Authorized [id number] Pending Review PCP Requested Referral Auto-Generate d Referral 11/03/2022 02/01/2023 1 1 Referral ID Status Reason Start Date Expiration Date Visits Requested Visits Authorized [id number] Pending Review PCP Requested Referral Auto-Generate d Referral 12/01/2022 03/01/2023 1 1 Specialty Diagnoses / Procedures Referred By Contac t Referred To Contact Gastroenterology Diagnoses Occult blood positive stool Procedures CONSULT TO GASTROENTEROLOGY OFFICE/OUTPATIENT [facility] 60-74 MINUTES Paulina Severino MD [address] [place] [address] [place] [address] Referral ID Status Reason Start Date Expiration Date Visits Requested Visits Authorized [id number] Pending Review PCP Requested Referral 12/07/2022 12/07/2023 1 1 Referral ID Status Reason Start Date Expiration Date Visits Requested Visits Authorized [id number] Pending Review PCP Requested Referral Auto-Generate d Referral 01/20/2023 04/20/2023 1 1 Referral ID Status Reason Start Date Expiration Date Visits Requested Visits Authorized [id number] Pending Review PCP Requested Referral Auto-Generate d Referral 03/04/2023 06/02/2023 1 1 Referral ID Status Reason Start Date Expiration Date Visits Requested Visits Authorized [id number] Pending Review PCP Requested Referral Auto-Generate d Referral 04/01/2023 06/30/2023 1 1 Specialty Diagnoses / Procedures Referred By Contac t Referred To Contact Neurology Diagnoses Acute right-sided low back pain with right-sided sciatica Spinal stenosis of lumbar region with neurogenic claudication Procedures CONSULT TO NEUROLOGY OFFICE/OUTPATIENT [facility] 60-74 MINUTES Davin August PA-C [address] [place] [address] Referral ID Status Reason Start Date Expiration Date Visits Requested Visits Authorized [id number] Pending Review PCP Requested Referral 06/09/2023 09/07/2023 [...] CTA ABDL AORTA&BI ILIOFEM W/CONTRAST&POSTP Elizabeth Ball, 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PIANO MECHANIC [address] [place] [address] Ct Imaging [place] [address] Referral ID Status Reason Start Date Expiration Date Visits Requested Visits Authorized [id number] Authorized Auto-Generat ed Referral 3 07/28/2024 1 1 Specialty Diagnoses / Procedures Referred By Contac t Referred To Contact Diagnoses Open wound of fourth toe of right foot, initial encounter Procedures CONSULT TO WOUND CENTER (AG) Anne Villalpando MD [address] [place] [address] Referral ID Status Reason Start Date Expiration Date Visits Requested Visits Authorized [id number] Ref Not Required PCP Requested Referral 3 10/11/2023 1 1 Specialty Diagnoses / Procedures Referred By Contac t Referred To Contact Cardiology Diagnoses Tachycardia Coronary artery disease involving [place] coronary artery of [place] heart with angina pectoris (HCC) Abnormal EKG Procedures CONSULT TO CARDIOLOGY OFFICE/OUTPATIENT [facility] 60-74 MINUTES Paulina Severino MD [address] [facility] [address] [place] [id number] Referral ID Status Reason Start Date Expiration Date Visits Requested Visits Authorized [id number] Pending Review PCP Requested Referral 3 07/19/2024 1 1 Specialty Diagnoses / Procedures Referred By Contac t Referred To Contact [facility] Diagnoses Tachycardia Procedures ECG COMPLETE ECG ROUTINE ECG W/LEAST 12 LDS W/I&R Paulina Severino MD [address] [facility] [address] [place] [id number] [facility] [address] [place] [address] Referral ID Status Reason Start Date Expiration Date Visits Requested Visits Authorized [id number] Pending Review Auto-Generat ed Referral 3 07/18/2024 1 1 Specialty Diagnoses / Procedures Referred By Contac t Referred To Contact Pain Management Diagnoses PVD (peripheral vascular disease) (HCC) Procedures CONSULT TO PAIN MGT Anne Villalpando MD [address] [place] [address] Referral ID Status Reason Start Date Expiration Date Visits Requested Visits Authorized [id number] Ref Not Required PCP Requested Referral 3 08/10/2024 1 1 Specialty Diagnoses / Procedures Referred By Contac t Referred To Contact Diagnoses Aortoiliac occlusive disease (HCC) S/P AKA (above knee amputation) bilateral (HCC) Procedures CONSULT TO ORTHOTIC/PROSTHETIC Elizabeth Ball, INEZ.PIANO MECHANIC 1 [facility] [address] [place] [address] Referral ID Status Reason Start Date Expiration Date V isits Requested Visits Authorized [id number] Ref Not Required 12/23/2023 02/21/2024 1 1 Specialty Diagnoses / Procedures Referred By Contac t Referred To Contact Cardiology Diagnoses HFrEF (heart failure with reduced ejection fraction) (HCC) Coronary arteriosclerosis Procedures CONSULT TO CARDIOLOGY OFFICE/OUTPATIENT [facility] 60 MINUTES Lyubov Prado APRN.PIANO MECHANIC [address] [facility] [place] [address] Referral ID Status Reason Start Date Expiration Date Visits Requested Visits Authorized [id number] Authorized PCP Requested Referral 03/27/2024 03/27/2025 1 1 Specialty Diagnoses / Procedures Referred By Contac t Referred To Contact Plastic Surgery Diagnoses History of above-knee amputation of both lower extremities (HCC) Amputation stump pain (HCC) (HCC) Aortoiliac occlusive disease (HCC) Procedures CONSULT TO PLASTIC SURGERY OFFICE/OUTPATIENT [facility] 60 MINUTES Elizabeth Ball, INEZ.PIANO MECHANIC [facility] [address] [place] [address] Thierry Rush MD [address] [facility] [address] [place] [address] Referral ID Status Reason Start Date Expiration Date Visits Requested Visits Authorized [id number] Authorized PCP Requested Referral 06/06/2024 06/06/2025 1 [...] section and content) DATE CREATED AUTHOR 04/13/2021 [facility] DATE CREATED AUTHOR AUTHOR'S ORGANIZ ATION 10/20/2024 [facility] DATE CREATED AUTHOR AUTHOR'S ORGANIZ ATION 10/20/2024 [facility] DATE CREATED AUTHOR AUTHOR'S ORGANIZ ATION 04/07/2025 [facility] DATE CREATED AUTHOR AUTHOR'S ORGANIZ ATION 05/18/2025 [facility] DATE CREATED AUTHOR AUTHOR'S ORGANIZ ATION 05/30/2025 [facility] Source Comments (unrecognize d section and content) In the event this informatio n is protected by the Federal Confidentiality of Alcohol and Drug Abuse Patient Records regulations: The Federal rules restrict any use of the information to criminally investigate or prosecute any alcohol or drug abuse patient.[facility] the event this information is protected by the Federal Confidentiality of Alcohol and Drug Abuse Patient Records regulations: The Federal rules restrict any use of the information to criminally investigate or prosecute any alcohol or drug abuse patient.[facility] [place] [facility] Hospital[facility] the event this information is protected by the Federal Confidentiality of Alcohol and Drug Abuse Patient Records regulations: The Federal rules restrict any use of the information to criminally investigate or prosecute any alcohol or drug abuse patient.[facility] [place] [facility]In the event this information is protected by the Federal Confidentiality of Alcohol and Drug Abuse Patient Records regulations: The Federal rules restrict any use of the information to criminally investigate or prosecute any alcohol or drug abuse patient.[facility] [place] [facility] the event this information is protected by the Federal Confidentiality of Alcohol and Drug Abuse Patient Records regulations: The Federal rules restrict any use of the information to criminally investigate or prosecute any alcohol or drug abuse patient.[facility] HospitalIn the event this information is protected by the Federal Confidentiality of Alcohol and Drug Abuse Patient Records regulations: The Federal rules restrict any use of the information to criminally investigate or prosecute any alcohol or drug abuse patient.[facility] [place] [facility] HospitalIn the event this information is protected by the Federal Confidentiality of Alcohol and Drug Abuse Patient Records regulations: The Federal rules restrict any use of the information to criminally investigate or prosecute any alcohol or drug abuse patient.[facility] [place] [facility] the event this information is protected by the Federal Confidentiality of Alcohol and Drug Abuse Patient Records regulations: The Federal rules restrict any use of the information to criminally investigate or prosecute any alcohol or drug abuse patient.[facility] [place] [facility] HospitalIn the event this information is protected by the Federal Confidentiality of Alcohol and Drug Abuse Patient Records regulations: The Federal rules restrict any use of the information to criminally investigate or prosecute any alcohol or drug abuse patient.[facility] HospitalIn the event this information is protected by the Federal Confidentiality of Alcohol and Drug Abuse Patient Records regulations: The Federal rules restrict any use of the information to criminally investigate or prosecute any alcohol or drug abuse patient.[facility] HospitalIn the event this information is protected by the Federal Confidentiality of Alcohol and Drug Abuse Patient Records regulations: The Federal rules restrict any use of the information to criminally investigate or prosecute any alcohol or drug abuse patient.[facility] HospitalIn the event this information is protected by the Federal Confidentiality of Alcohol and Drug Abuse Patient Records regulations: The Federal rules restrict any use of the information to criminally investigate or prosecute any alcohol or drug abuse patient.[facility] HospitalIn the event this information is protected by the Federal Confidentiality of Alcohol and Drug Abuse Patient Records regulations: The Federal rules restrict any use of the information to criminally investigate or prosecute any alcohol or drug abuse patient.[facility] HospitalIn the event this information is protected by the Federal Confidentiality of Alcohol and Drug Abuse Patient Records regulations: The Federal rules restrict any use of the information to criminally investigate or prosecute any alcohol or drug abuse patient.[facility] [place] [facility] HospitalIn the event this information is protected by the Federal Confidentiality of Alcohol and Drug Abuse Patient Records regulations: The Federal rules restrict any use of the information to criminally investigate or prosecute any alcohol or drug abuse patient.[facility] HospitalIn the event this information is protected by the Federal Confidentiality of Alcohol and Drug Abuse Patient Records regulations: The Federal rules restrict any use of the information to criminally investigate or prosecute any alcohol or drug abuse patient.[facility] HospitalIn the event this information is protected by the Federal Confidentiality of Alcohol and Drug Abuse Patient Records regulations: The Federal rules restrict any use of the information to criminally investigate or prosecute any alcohol or drug abuse patient.[facility] HospitalIn the event this information is protected by the Federal Confidentiality of Alcohol and Drug Abuse Patient Records regulations: The Federal rules restrict any use of the information to criminally investigate or prosecute any alcohol or drug abuse patient.[facility] HospitalIn the event this information is protected by the Federal Confidentiality of Alcohol and Drug Abuse Patient Records regulations: The Federal rules restrict any use of the information to criminally investigate or prosecute any alcohol or drug abuse patient.[facility] [place] [facility] HospitalIn the event this information is protected by the Federal Confidentiality of Alcohol and Drug Abuse Patient Records regulations: The Federal rules restrict any use of the information to criminally investigate or prosecute any alcohol or drug abuse patient.[facility] HospitalIn the event this information is protected by the Federal Confidentiality of Alcohol and Drug Abuse Patient Records regulations: The Federal rules restrict any use of the information to criminally investigate or prosecute any alcohol or drug abuse patient.[facility] HospitalIn the event this information is protected by the Federal Confidentiality of Alcohol and Drug Abuse Patient Records regulations: The Federal rules restrict any use of the information to criminally investigate or prosecute any alcohol or drug abuse patient.[facility] HospitalIn the event this information is protected by the Federal Confidentiality of Alcohol and Drug Abuse Patient Records regulations: The Federal rules restrict any use of the information to criminally investigate or prosecute any alcohol or drug abuse patient.[facility] HospitalIn the event this information is protected by the Federal Confidentiality of Alcohol and Drug Abuse Patient Records regulations: The Federal rules restrict any use of the information to criminally investigate or prosecute any alcohol or drug abuse patient.[facility] HospitalIn the event this information is protected by the Federal Confidentiality of Alcohol and Drug Abuse Patient Records regulations: The Federal rules restrict any use of the information to criminally investigate or prosecute any alcohol or drug abuse patient.[facility] HospitalIn the event this information is protected by the Federal Confidentiality of Alcohol and Drug Abuse Patient Records regulations: The Federal rules restrict any use of the information to criminally investigate or prosecute any alcohol or drug abuse patient.[facility] the event this information is protected by the Federal Confidentiality of Alcohol and Drug Abuse Patient Records regulations: The Federal rules restrict any use of the information to criminally investigate or prosecute any alcohol or drug abuse patient.[facility]In the event this information is protected by the Federal Confidentiality of Alcohol and Drug Abuse Patient Records regulations: The Federal rules restrict any use of the information to criminally investigate or prosecute any alcohol or drug abuse patient.[facility]In the event this information is protected by the Federal Confidentiality of Alcohol and Drug Abuse Patient Records regulations: The Federal rules restrict any use of the information to criminally investigate or prosecute any alcohol or drug abuse patient.[facility]In the event this information is protected by the Federal Confidentiality of Alcohol and Drug Abuse Patient Records regulations: The Federal rules restrict any use of the information to criminally investigate or prosecute any alcohol or drug abuse patient.[facility]In the event this information is protected by the Federal Confidentiality of Alcohol and Drug Abuse Patient Records regulations: The Federal rules restrict any use of the information to criminally investigate or prosecute any alcohol or drug abuse patient.[facility]In the event this information is protected by the Federal Confidentiality of Alcohol and Drug Abuse Patient Records regulations: The Federal rules restrict any use of the information to criminally investigate or prosecute any alcohol or drug abuse patient.[facility]In the event this information is protected by the Federal Confidentiality of Alcohol and Drug Abuse Patient Records regulations: The Federal rules restrict any use of the information to criminally investigate or prosecute any alcohol or drug abuse patient.[facility]In the event this information is protected by the Federal Confidentiality of Alcohol and Drug Abuse Patient Records regulations: The Federal rules restrict any use of the information to criminally investigate or prosecute any alcohol or drug abuse patient.[facility]In the event this information is protected by the Federal Confidentiality of Alcohol and Drug Abuse Patient Records regulations: The Federal rules restrict any use of the information to criminally investigate or prosecute any alcohol or drug abuse patient.[facility]In the event this information is protected by the Federal Confidentiality of Alcohol and Drug Abuse Patient Records regulations: The Federal rules restrict any use of the information to criminally investigate or prosecute any alcohol or drug abuse patient.[facility]In the event this information is protected by the Federal Confidentiality of Alcohol and Drug Abuse Patient Records regulations: The Federal rules restrict any use of the information to criminally investigate or prosecute any alcohol or drug abuse patient.[facility]In the event this information is protected by the Federal Confidentiality of Alcohol and Drug Abuse Patient Records regulations: The Federal rules restrict any use of the information to criminally investigate or prosecute any alcohol or drug abuse patient.[facility]In the event this information is protected by the Federal Confidentiality of Alcohol and Drug Abuse Patient Records regulations: The Federal rules restrict any use of the information to criminally investigate or prosecute any alcohol or drug abuse patient.[facility]In the event this information is protected by the Federal Confidentiality of Alcohol and Drug Abuse Patient Records regulations: The Federal rules restrict any use of the information to criminally investigate or prosecute any alcohol or drug abuse patient.[facility]In the event this information is protected by the Federal Confidentiality of Alcohol and Drug Abuse Patient Records regulations: The Federal rules restrict any use of the information to criminally investigate or prosecute any alcohol or drug abuse patient.[facility]In the event this information is protected by the Federal Confidentiality of Alcohol and Drug Abuse Patient Records regulations: The Federal rules restrict any use of the information to criminally investigate or prosecute any alcohol or drug abuse patient.[facility]In the event this information is protected by the Federal Confidentiality of Alcohol and Drug Abuse Patient Records regulations: The Federal rules restrict any use of the information to criminally investigate or prosecute any alcohol or drug abuse patient.[facility]In the event this information is protected by the Federal Confidentiality of Alcohol and Drug Abuse Patient Records regulations: The Federal rules restrict any use of the information to criminally investigate or prosecute any alcohol or drug abuse patient.[facility]In the event this information is protected by the Federal Confidentiality of Alcohol and Drug Abuse Patient Records regulations: The Federal rules restrict any use of the information to criminally investigate or prosecute any alcohol or drug abuse patient.[facility]In the event this information is protected by the Federal Confidentiality of Alcohol and Drug Abuse Patient Records regulations: The Federal rules restrict any use of the information to criminally investigate or prosecute any alcohol or drug abuse patient.[facility]In the event this information is protected by the Federal Confidentiality of Alcohol and Drug Abuse Patient Records regulations: The Federal rules restrict any use of the information to criminally investigate or prosecute any alcohol or drug abuse patient.[facility]In the event this information is protected by the Federal Confidentiality of Alcohol and Drug Abuse Patient Records regulations: The Federal rules restrict any use of the information to criminally investigate or prosecute any alcohol or drug abuse patient.[facility]In the event this information is protected by the Federal Confidentiality of Alcohol and Drug Abuse Patient Records regulations: The Federal rules restrict any use of the information to criminally investigate or prosecute any alcohol or drug abuse patient.[facility]In the event this information is protected by the Federal Confidentiality of Alcohol and Drug Abuse Patient Records regulations: The Federal rules restrict any use of the information to criminally investigate or prosecute any alcohol or drug abuse patient.[facility]In the event this information is protected by the Federal Confidentiality of Alcohol and Drug Abuse Patient Records regulations: The Federal rules restrict any use of the information to criminally investigate or prosecute any alcohol or drug abuse patient.[facility]In the event this information is protected by the Federal Confidentiality of Alcohol and Drug Abuse Patient Records regulations: The Federal rules restrict any use of the information to criminally investigate or prosecute any alcohol or drug abuse patient.[facility]In the event this information is protected by the Federal Confidentiality of Alcohol and Drug Abuse Patient Records regulations: The Federal rules restrict any use of the information to criminally investigate or prosecute any alcohol or drug abuse patient.[facility]In the event this information is protected by the Federal Confidentiality of Alcohol and Drug Abuse Patient Records regulations: The Federal rules restrict any use of the information to criminally investigate or prosecute any alcohol or drug abuse patient.[facility]In the event this information is protected by the Federal Confidentiality of Alcohol and Drug Abuse Patient Records regulations: The Federal rules restrict any use of the information to criminally investigate or prosecute any alcohol or drug abuse patient.[facility]In the event this information is protected by the Federal Confidentiality of Alcohol and Drug Abuse Patient Records regulations: The Federal rules restrict any use of the information to criminally investigate or prosecute any alcohol or drug abuse patient.[facility]In the event this information is protected by the Federal Confidentiality of Alcohol and Drug Abuse Patient Records regulations: The Federal rules restrict any use of the information to criminally investigate or prosecute any alcohol or drug abuse patient.[facility]In the event this information is protected by the Federal Confidentiality of Alcohol and Drug Abuse Patient Records regulations: The Federal rules restrict any use of the information to criminally investigate or prosecute any alcohol or drug abuse patient.[facility]In the event this information is protected by the Federal Confidentiality of Alcohol and Drug Abuse Patient Records regulations: The Federal rules restrict any use of the information to criminally investigate or prosecute any alcohol or drug abuse patient.[facility]In the event this information is protected by the Federal Confidentiality of Alcohol and Drug Abuse Patient Records regulations: The Federal rules restrict any use of the information to criminally investigate or prosecute any alcohol or drug abuse patient.[facility]In the event this information is protected by the Federal Confidentiality of Alcohol and Drug Abuse Patient Records regulations: The Federal rules restrict any use of the information to criminally investigate or prosecute any alcohol or drug abuse patient.[facility]In the event this information is protected by the Federal Confidentiality of Alcohol and Drug Abuse Patient Records regulations: The Federal rules restrict any use of the information to criminally investigate or prosecute any alcohol or drug abuse patient.[facility]In the event this information is protected by the Federal Confidentiality of Alcohol and Drug Abuse Patient Records regulations: The Federal rules restrict any use of the information to criminally investigate or prosecute any alcohol or drug abuse patient.[facility]In the event this information is protected by the Federal Confidentiality of Alcohol and Drug Abuse Patient Records regulations: The Federal rules restrict any use of the information to criminally investigate or prosecute any alcohol or drug abuse patient.[facility]In the event this information is protected by the Federal Confidentiality of Alcohol and Drug Abuse Patient Records regulations: The Federal rules restrict any use of the information to criminally investigate or prosecute any alcohol or drug abuse patient.[facility]In the event this information is protected by the Federal Confidentiality of Alcohol and Drug Abuse Patient Records regulations: The Federal rules restrict any use of the information to criminally investigate or prosecute any alcohol or drug abuse patient.[facility]In the event this information is protected by the Federal Confidentiality of Alcohol and Drug Abuse Patient Records regulations: The Federal rules restrict any use of the information to criminally investigate or prosecute any alcohol or drug abuse patient.[facility]In the event this information is protected by the Federal Confidentiality of Alcohol and Drug Abuse Patient Records regulations: The Federal rules restrict any use of the information to criminally investigate or prosecute any alcohol or drug abuse patient.[facility]In the event this information is protected by the Federal Confidentiality of Alcohol and Drug Abuse Patient Records regulations: The Federal rules restrict any use of the information to criminally investigate or prosecute any alcohol or drug abuse patient.[facility]In the event this information is protected by the Federal Confidentiality of Alcohol and Drug Abuse Patient Records regulations: The Federal rules restrict any use of the information to criminally investigate or prosecute any alcohol or drug abuse patient.[facility]In the event this information is protected by the Federal Confidentiality of Alcohol and Drug Abuse Patient Records regulations: The Federal rules restrict any use of the information to criminally investigate or prosecute any alcohol or drug abuse patient.[facility]In the event this information is protected by the Federal Confidentiality of Alcohol and Drug Abuse Patient Records regulations: The Federal rules restrict any use of the information to criminally investigate or prosecute any alcohol or drug abuse patient.[facility]In the event this information is protected by the Federal Confidentiality of Alcohol and Drug Abuse Patient Records regulations: The Federal rules restrict any use of the information to criminally investigate or prosecute any alcohol or drug abuse patient.[facility]In the event this information is protected by the Federal Confidentiality of Alcohol and Drug Abuse Patient Records regulations: The Federal rules restrict any use of the information to criminally investigate or prosecute any alcohol or drug abuse patient.[facility]In the event this information is protected by the Federal Confidentiality of Alcohol and Drug Abuse Patient Records regulations: The Federal rules restrict any use of the information to criminally investigate or prosecute any alcohol or drug abuse patient.[facility]In the event this information is protected by the Federal Confidentiality of Alcohol and Drug Abuse Patient Records regulations: The Federal rules restrict any use of the information to criminally investigate or prosecute any alcohol or drug abuse patient.[facility]In the event this information is protected by the Federal Confidentiality of Alcohol and Drug Abuse Patient Records regulations: The Federal rules restrict any use of the information to criminally investigate or prosecute any alcohol or drug abuse patient.[facility]In the event this information is protected by the Federal Confidentiality of Alcohol and Drug Abuse Patient Records regulations: The Federal rules restrict any use of the information to criminally investigate or prosecute any alcohol or drug abuse patient.[facility]In the event this information is protected by the Federal Confidentiality of Alcohol and Drug Abuse Patient Records regulations: The Federal rules restrict any use of the information to criminally investigate or prosecute any alcohol or drug abuse patient.[facility]In the event this information is protected by the Federal Confidentiality of Alcohol and Drug Abuse Patient Records regulations: The Federal rules restrict any use of the information to criminally investigate or prosecute any alcohol or drug abuse patient.[facility]In the event this information is protected by the Federal Confidentiality of Alcohol and Drug Abuse Patient Records regulations: The Federal rules restrict any use of the information to criminally investigate or prosecute any alcohol or drug abuse patient.[facility]In the event this information is protected by the Federal Confidentiality of Alcohol and Drug Abuse Patient Records regulations: The Federal rules restrict any use of the information to criminally investigate or prosecute any alcohol or drug abuse patient.[facility]In the event this information is protected by the Federal Confidentiality of Alcohol and Drug Abuse Patient Records regulations: The Federal rules restrict any use of the information to criminally investigate or prosecute any alcohol or drug abuse patient.[facility]In the event this information is protected by the Federal Confidentiality of Alcohol and Drug Abuse Patient Records regulations: The Federal rules restrict any use of the information to criminally investigate or prosecute any alcohol or drug abuse patient.[facility]In the event this information is protected by the Federal Confidentiality of Alcohol and Drug Abuse Patient Records regulations: The Federal rules restrict any use of the information to criminally investigate or prosecute any alcohol or drug abuse patient.[facility]In the event this information is protected by the Federal Confidentiality of Alcohol and Drug Abuse Patient Records regulations: The Federal rules restrict any use of the information to criminally investigate or prosecute any alcohol or drug abuse patient.[facility]In the event this information is protected by the Federal Confidentiality of Alcohol and Drug Abuse Patient Records regulations: The Federal rules restrict any use of the information to criminally investigate or prosecute any alcohol or drug abuse patient.[facility]In the event this information is protected by the Federal Confidentiality of Alcohol and Drug Abuse Patient Records regulations: The Federal rules restrict any use of the information to criminally investigate or prosecute any alcohol or drug abuse patient.[facility]In the event this information is protected by the Federal Confidentiality of Alcohol and Drug Abuse Patient Records regulations: The Federal rules restrict any use of the information to criminally investigate or prosecute any alcohol or drug abuse patient.[facility]In the event this information is protected by the Federal Confidentiality of Alcohol and Drug Abuse Patient Records regulations: The Federal rules restrict any use of the information to criminally investigate or prosecute any alcohol or drug abuse patient.[facility]In the event this information is protected by the Federal Confidentiality of Alcohol and Drug Abuse Patient Records regulations: The Federal rules restrict any use of the information to criminally investigate or prosecute any alcohol or drug abuse patient.[facility]In the event this information is protected by the Federal Confidentiality of Alcohol and Drug Abuse Patient Records regulations: The Federal rules restrict any use of the information to criminally investigate or prosecute any alcohol or drug abuse patient.[facility]In the event this information is protected by the Federal Confidentiality of Alcohol and Drug Abuse Patient Records regulations: The Federal rules restrict any use of the information to criminally investigate or prosecute any alcohol or drug abuse patient.[facility]In the event this information is protected by the Federal Confidentiality of Alcohol and Drug Abuse Patient Records regulations: The Federal rules restrict any use of the information to criminally investigate or prosecute any alcohol or drug abuse patient.[facility]In the event this information is protected by the Federal Confidentiality of Alcohol and Drug Abuse Patient Records regulations: The Federal rules restrict any use of the information to criminally investigate or prosecute any alcohol or drug abuse patient.[facility]In the event this information is protected by the Federal Confidentiality of Alcohol and Drug Abuse Patient Records regulations: The Federal rules restrict any use of the information to criminally investigate or prosecute any alcohol or drug abuse patient.[facility]In the event this information is protected by the Federal Confidentiality of Alcohol and Drug Abuse Patient Records regulations: The Federal rules restrict any use of the information to criminally investigate or prosecute any alcohol or drug abuse patient.[facility]In the event this information is protected by the Federal Confidentiality of Alcohol and Drug Abuse Patient Records regulations: The Federal rules restrict any use of the information to criminally investigate or prosecute any alcohol or drug abuse patient.[facility]In the event this information is protected by the Federal Confidentiality of Alcohol and Drug Abuse Patient Records regulations: The Federal rules restrict any use of the information to criminally investigate or prosecute any alcohol or drug abuse patient.[facility]In the event this information is protected by the Federal Confidentiality of Alcohol and Drug Abuse Patient Records regulations: The Federal rules restrict any use of the information to criminally investigate or prosecute any alcohol or drug abuse patient.[facility]In the event this information is protected by the Federal Confidentiality of Alcohol and Drug Abuse Patient Records regulations: The Federal rules restrict any use of the information to criminally investigate or prosecute any alcohol or drug abuse patient.[facility]In the event this information is protected by the Federal Confidentiality of Alcohol and Drug Abuse Patient Records regulations: The Federal rules restrict any use of the information to criminally investigate or prosecute any alcohol or drug abuse patient.[facility]In the event this information is protected by the Federal Confidentiality of Alcohol and Drug Abuse Patient Records regulations: The Federal rules restrict any use of the information to criminally investigate or prosecute any alcohol or drug abuse patient.[facility]In the event this information is protected by the Federal Confidentiality of Alcohol and Drug Abuse Patient Records regulations: The Federal rules restrict any use of the information to criminally investigate or prosecute any alcohol or drug abuse patient.[facility]In the event this information is protected by the Federal Confidentiality of Alcohol and Drug Abuse Patient Records regulations: The Federal rules restrict any use of the information to criminally investigate or prosecute any alcohol or drug abuse patient.[facility]In the event this information is protected by the Federal Confidentiality of Alcohol and Drug Abuse Patient Records regulations: The Federal rules restrict any use of the information to criminally investigate or prosecute any alcohol or drug abuse patient.[facility]In the event this information is protected by the Federal Confidentiality of Alcohol and Drug Abuse Patient Records regulations: The Federal rules restrict any use of the information to criminally investigate or prosecute any alcohol or drug abuse patient.[facility]In the event this information is protected by the Federal Confidentiality of Alcohol and Drug Abuse Patient Records regulations: The Federal rules restrict any use of the information to criminally investigate or prosecute any alcohol or drug abuse patient.[facility]In the event this information is protected by the Federal Confidentiality of Alcohol and Drug Abuse Patient Records regulations: The Federal rules restrict any use of the information to criminally investigate or prosecute any alcohol or drug abuse patient.[facility]In the event this information is protected by the Federal Confidentiality of Alcohol and Drug Abuse Patient Records regulations: The Federal rules restrict any use of the information to criminally investigate or prosecute any alcohol or drug abuse patient.[facility]In the event this information is protected by the Federal Confidentiality of Alcohol and Drug Abuse Patient Records regulations: The Federal rules restrict any use of the information to criminally investigate or prosecute any alcohol or drug abuse patient.[facility] HospitalIn the event this information is protected by the Federal Confidentiality of Alcohol and Drug Abuse Patient Records regulations: The Federal rules restrict any use of the information to criminally investigate or prosecute any alcohol or drug abuse patient.[facility]In the event this information is protected by the Federal Confidentiality of Alcohol and Drug Abuse Patient Records regulations: The Federal rules restrict any use of the information to criminally investigate or prosecute any alcohol or drug abuse patient.[facility]In the event this information is protected by the Federal Confidentiality of Alcohol and Drug Abuse Patient Records regulations: The Federal rules restrict any use of the information to criminally investigate or prosecute any alcohol or drug abuse patient.[facility]In the event this information is protected by the Federal Confidentiality of Alcohol and Drug Abuse Patient Records regulations: The Federal rules restrict any use of the information to criminally investigate or prosecute any alcohol or drug abuse patient.[facility]In the event this information is protected by the Federal Confidentiality of Alcohol and Drug Abuse Patient Records regulations: The Federal rules restrict any use of the information to criminally investigate or prosecute any alcohol or drug abuse patient.[facility]In the event this information is protected by the Federal Confidentiality of Alcohol and Drug Abuse Patient Records regulations: The Federal rules restrict any use of the information to criminally investigate or prosecute any alcohol or drug abuse patient.[facility]In the event this information is protected by the Federal Confidentiality of Alcohol and Drug Abuse Patient Records regulations: The Federal rules restrict any use of the information to criminally investigate or prosecute any alcohol or drug abuse patient.[facility]In the event this information is protected by the Federal Confidentiality of Alcohol and Drug Abuse Patient Records regulations: The Federal rules restrict any use of the information to criminally investigate or prosecute any alcohol or drug abuse patient.[facility]In the event this information is protected by the Federal Confidentiality of Alcohol and Drug Abuse Patient Records regulations: The Federal rules restrict any use of the information to criminally investigate or prosecute any alcohol or drug abuse patient.[facility]In the event this information is protected by the Federal Confidentiality of Alcohol and Drug Abuse Patient Records regulations: The Federal rules restrict any use of the information to criminally investigate or prosecute any alcohol or drug abuse patient.[facility]In the event this information is protected by the Federal Confidentiality of Alcohol and Drug Abuse Patient Records regulations: The Federal rules restrict any use of the information to criminally investigate or prosecute any alcohol or drug abuse patient.[facility]In the event this information is protected by the Federal Confidentiality of Alcohol and Drug Abuse Patient Records regulations: The Federal rules restrict any use of the information to criminally investigate or prosecute any alcohol or drug abuse patient.[facility]In the event this information is protected by the Federal Confidentiality of Alcohol and Drug Abuse Patient Records regulations: The Federal rules restrict any use of the information to criminally investigate or prosecute any alcohol or drug abuse patient.[facility]In the event this information is protected by the Federal Confidentiality of Alcohol and Drug Abuse Patient Records regulations: The Federal rules restrict any use of the information to criminally investigate or prosecute any alcohol or drug abuse patient.[facility] HospitalIn the event this information is protected by the Federal Confidentiality of Alcohol and Drug Abuse Patient Records regulations: The Federal rules restrict any use of the information to criminally investigate or prosecute any alcohol or drug abuse patient.[facility]In the event this information is protected by the Federal Confidentiality of Alcohol and Drug Abuse Patient Records regulations: The Federal rules restrict any use of the information to criminally investigate or prosecute any alcohol or drug abuse patient.[facility]In the event this information is protected by the Federal Confidentiality of Alcohol and Drug Abuse Patient Records regulations: The Federal rules restrict any use of the information to criminally investigate or prosecute any alcohol or drug abuse patient.[facility]In the event this information is protected by the Federal Confidentiality of Alcohol and Drug Abuse Patient Records regulations: The Federal rules restrict any use of the information to criminally investigate or prosecute any alcohol or drug abuse patient.[facility] HospitalIn the event this information is protected by the Federal Confidentiality of Alcohol and Drug Abuse Patient Records regulations: The Federal rules restrict any use of the information to criminally investigate or prosecute any alcohol or drug abuse patient.[facility]In the event this information is protected by the Federal Confidentiality of Alcohol and Drug Abuse Patient Records regulations: The Federal rules restrict any use of the information to criminally investigate or prosecute any alcohol or drug abuse patient.[facility] HospitalIn the event this information is protected by the Federal Confidentiality of Alcohol and Drug Abuse Patient Records regulations: The Federal rules restrict any use of the information to criminally investigate or prosecute any alcohol or drug abuse patient.[facility]In the event this information is protected by the Federal Confidentiality of Alcohol and Drug Abuse Patient Records regulations: The Federal rules restrict any use of the information to criminally investigate or prosecute any alcohol or drug abuse patient.[facility]In the event this information is protected by the Federal Confidentiality of Alcohol and Drug Abuse Patient Records regulations: The Federal rules restrict any use of the information to criminally investigate or prosecute any alcohol or drug abuse patient.[facility] HospitalIn the event this information is protected by the Federal Confidentiality of Alcohol and Drug Abuse Patient Records regulations: The Federal rules restrict any use of the information to criminally investigate or prosecute any alcohol or drug abuse patient.[facility] HospitalIn the event this information is protected by the Federal Confidentiality of Alcohol and Drug Abuse Patient Records regulations: The Federal rules restrict any use of the information to criminally investigate or prosecute any alcohol or drug abuse patient.[facility] HospitalIn the event this information is protected by the Federal Confidentiality of Alcohol and Drug Abuse Patient Records regulations: The Federal rules restrict any use of the information to criminally investigate or prosecute any alcohol or drug abuse patient.[facility] HospitalIn the event this information is protected by the Federal Confidentiality of Alcohol and Drug Abuse Patient Records regulations: The Federal rules restrict any use of the information to criminally investigate or prosecute any alcohol or drug abuse patient.[facility] HospitalIn the event this information is protected by the Federal Confidentiality of Alcohol and Drug Abuse Patient Records regulations: The Federal rules restrict any use of the information to criminally investigate or prosecute any alcohol or drug abuse patient.[facility] HospitalIn the event this information is protected by the Federal Confidentiality of Alcohol and Drug Abuse Patient Records regulations: The Federal rules restrict any use of the information to criminally investigate or prosecute any alcohol or drug abuse patient.[facility] HospitalIn the event this information is protected by the Federal Confidentiality of Alcohol and Drug Abuse Patient Records regulations: The Federal rules restrict any use of the information to criminally investigate or prosecute any alcohol or drug abuse patient.[facility] HospitalIn the event this information is protected by the Federal Confidentiality of Alcohol and Drug Abuse Patient Records regulations: The Federal rules restrict any use of the information to criminally investigate or prosecute any alcohol or drug abuse patient.[facility] HospitalIn the event this information is protected by the Federal Confidentiality of Alcohol and Drug Abuse Patient Records regulations: The Federal rules restrict any use of the information to criminally investigate or prosecute any alcohol or drug abuse patient.[facility]In the event this information is protected by the Federal Confidentiality of Alcohol and Drug Abuse Patient Records regulations: The Federal rules restrict any use of the information to criminally investigate or prosecute any alcohol or drug abuse patient.[facility]In the event this information is protected by the Federal Confidentiality of Alcohol and Drug Abuse Patient Records regulations: The Federal rules restrict any use of the information to criminally investigate or prosecute any alcohol or drug abuse patient.[facility] HospitalIn the event this information is protected by the Federal Confidentiality of Alcohol and Drug Abuse Patient Records regulations: The Federal rules restrict any use of the information to criminally investigate or prosecute any alcohol or drug abuse patient.[facility] HospitalIn the event this information is protected by the Federal Confidentiality of Alcohol and Drug Abuse Patient Records regulations: The Federal rules restrict any use of the information to criminally investigate or prosecute any alcohol or drug abuse patient.[facility] HospitalIn the event this information is protected by the Federal Confidentiality of Alcohol and Drug Abuse Patient Records regulations: The Federal rules restrict any use of the information to criminally investigate or prosecute any alcohol or drug abuse patient.[facility] HospitalIn the event this information is protected by the Federal Confidentiality of Alcohol and Drug Abuse Patient Records regulations: The Federal rules restrict any use of the information to criminally investigate or prosecute any alcohol or drug abuse patient.[facility] HospitalIn the event this information is protected by the Federal Confidentiality of Alcohol and Drug Abuse Patient Records regulations: The Federal rules restrict any use of the information to criminally investigate or prosecute any alcohol or drug abuse patient.[facility] HospitalIn the event this information is protected by the Federal Confidentiality of Alcohol and Drug Abuse Patient Records regulations: The Federal rules restrict any use of the information to criminally investigate or prosecute any alcohol or drug abuse patient.[facility] HospitalIn the event this information is protected by the Federal Confidentiality of Alcohol and Drug Abuse Patient Records regulations: The Federal rules restrict any use of the information to criminally investigate or prosecute any alcohol or drug abuse patient.[facility] HospitalIn the event this information is protected by the Federal Confidentiality of Alcohol and Drug Abuse Patient Records regulations: The Federal rules restrict any use of the information to criminally investigate or prosecute any alcohol or drug abuse patient.[facility] HospitalIn the event this information is protected by the Federal Confidentiality of Alcohol and Drug Abuse Patient Records regulations: The Federal rules restrict any use of the information to criminally investigate or prosecute any alcohol or drug abuse patient.[facility] HospitalIn the event this information is protected by the Federal Confidentiality of Alcohol and Drug Abuse Patient Records regulations: The Federal rules restrict any use of the information to criminally investigate or prosecute any alcohol or drug abuse patient.[facility] HospitalIn the event this information is protected by the Federal Confidentiality of Alcohol and Drug Abuse Patient Records regulations: The Federal rules restrict any use of the information to criminally investigate or prosecute any alcohol or drug abuse patient.[facility] HospitalIn the event this information is protected by the Federal Confidentiality of Alcohol and Drug Abuse Patient Records regulations: The Federal rules restrict any use of the information to criminally investigate or prosecute any alcohol or drug abuse patient.[facility] HospitalIn the event this information is protected by the Federal Confidentiality of Alcohol and Drug Abuse Patient Records regulations: The Federal rules restrict any use of the information to criminally investigate or prosecute any alcohol or drug abuse patient.[facility] HospitalIn the event this information is protected by the Federal Confidentiality of Alcohol and Drug Abuse Patient Records regulations: The Federal rules restrict any use of the information to criminally investigate or prosecute any alcohol or drug abuse patient.[facility] HospitalIn the event this information is protected by the Federal Confidentiality of Alcohol and Drug Abuse Patient Records regulations: The Federal rules restrict any use of the information to criminally investigate or prosecute any alcohol or drug abuse patient.[facility] HospitalIn the event this information is protected by the Federal Confidentiality of Alcohol and Drug Abuse Patient Records regulations: The Federal rules restrict any use of the information to criminally investigate or prosecute any alcohol or drug abuse patient.[facility] HospitalIn the event this information is protected by the Federal Confidentiality of Alcohol and Drug Abuse Patient Records regulations: The Federal rules restrict any use of the information to criminally investigate or prosecute any alcohol or drug abuse patient.[facility] HospitalIn the event this information is protected by the Federal Confidentiality of Alcohol and Drug Abuse Patient Records regulations: The Federal rules restrict any use of the information to criminally investigate or prosecute any alcohol or drug abuse patient.[facility] HospitalIn the event this information is protected by the Federal Confidentiality of Alcohol and Drug Abuse Patient Records regulations: The Federal rules restrict any use of the information to criminally investigate or prosecute any alcohol or drug abuse patient.[facility] HospitalIn the event this information is protected by the Federal Confidentiality of Alcohol and Drug Abuse Patient Records regulations: The Federal rules restrict any use of the information to criminally investigate or prosecute any alcohol or drug abuse patient.[facility]In the event this information is protected by the Federal Confidentiality of Alcohol and Drug Abuse Patient Records regulations: The Federal rules restrict any use of the information to criminally investigate or prosecute any alcohol or drug abuse patient.[facility]In the event this information is protected by the Federal Confidentiality of Alcohol and Drug Abuse Patient Records regulations: The Federal rules restrict any use of the information to criminally investigate or prosecute any alcohol or drug abuse patient.[facility] HospitalIn the event this information is protected by the Federal Confidentiality of Alcohol and Drug Abuse Patient Records regulations: The Federal rules restrict any use of the information to criminally investigate or prosecute any alcohol or drug abuse patient.[facility]In the event this information is protected by the Federal Confidentiality of Alcohol and Drug Abuse Patient Records regulations: The Federal rules restrict any use of the information to criminally investigate or prosecute any alcohol or drug abuse patient.[facility] HospitalIn the event this information is protected by the Federal Confidentiality of Alcohol and Drug Abuse Patient Records regulations: The Federal rules restrict any use of the information to criminally investigate or prosecute any alcohol or drug abuse patient.[facility] HospitalIn the event this information is protected by the Federal Confidentiality of Alcohol and Drug Abuse Patient Records regulations: The Federal rules restrict any use of the information to criminally investigate or prosecute any alcohol or drug abuse patient.[facility] HospitalIn the event this information is protected by the Federal Confidentiality of Alcohol and Drug Abuse Patient Records regulations: The Federal rules restrict any use of the information to criminally investigate or prosecute any alcohol or drug abuse patient.[facility] HospitalIn the event this information is protected by the Federal Confidentiality of Alcohol and Drug Abuse Patient Records regulations: The Federal rules restrict any use of the information to criminally investigate or prosecute any alcohol or drug abuse patient.[facility]In the event this information is protected by the Federal Confidentiality of Alcohol and Drug Abuse Patient Records regulations: The Federal rules restrict any use of the information to criminally investigate or prosecute any alcohol or drug abuse patient.[facility] HospitalIn the event this information is protected by the Federal Confidentiality of Alcohol and Drug Abuse Patient Records regulations: The Federal rules restrict any use of the information to criminally investigate or prosecute any alcohol or drug abuse patient.[facility]In the event this information is protected by the Federal Confidentiality of Alcohol and Drug Abuse Patient Records regulations: The Federal rules restrict any use of the information to criminally investigate or prosecute any alcohol or drug abuse patient.[facility]In the event this information is protected by the Federal Confidentiality of Alcohol and Drug Abuse Patient Records regulations: The Federal rules restrict any use of the information to criminally investigate or prosecute any alcohol or drug abuse patient.[facility]In the event this information is protected by the Federal Confidentiality of Alcohol and Drug Abuse Patient Records regulations: The Federal rules restrict any use of the information to criminally investigate or prosecute any alcohol or drug abuse patient.[facility]In the event this information is protected by the Federal Confidentiality of Alcohol and Drug Abuse Patient Records regulations: The Federal rules restrict any use of the information to criminally investigate or prosecute any alcohol or drug abuse patient.[facility] HospitalIn the event this information is protected by the Federal Confidentiality of Alcohol and Drug Abuse Patient Records regulations: The Federal rules restrict any use of the information to criminally investigate or prosecute any alcohol or drug abuse patient.[facility]In the event this information is protected by the Federal Confidentiality of Alcohol and Drug Abuse Patient Records regulations: The Federal rules restrict any use of the information to criminally investigate or prosecute any alcohol or drug abuse patient.[facility]In the event this information is protected by the Federal Confidentiality of Alcohol and Drug Abuse Patient Records regulations: The Federal rules restrict any use of the information to criminally investigate or prosecute any alcohol or drug abuse patient.[facility]In the event this information is protected by the Federal Confidentiality of Alcohol and Drug Abuse Patient Records regulations: The Federal rules restrict any use of the information to criminally investigate or prosecute any alcohol or drug abuse patient.[facility] HospitalIn the event this information is protected by the Federal Confidentiality of Alcohol and Drug Abuse Patient Records regulations: The Federal rules restrict any use of the information to criminally investigate or prosecute any alcohol or drug abuse patient.[facility]In the event this information is protected by the Federal Confidentiality of Alcohol and Drug Abuse Patient Records regulations: The Federal rules restrict any use of the information to criminally investigate or prosecute any alcohol or drug abuse patient.[facility]In the event this information is protected by the Federal Confidentiality of Alcohol and Drug Abuse Patient Records regulations: The Federal rules restrict any use of the information to criminally investigate or prosecute any alcohol or drug abuse patient.[facility] HospitalIn the event this information is protected by the Federal Confidentiality of Alcohol and Drug Abuse Patient Records regulations: The Federal rules restrict any use of the information to criminally investigate or prosecute any alcohol or drug abuse patient.[facility] HospitalIn the event this information is protected by the Federal Confidentiality of Alcohol and Drug Abuse Patient Records regulations: The Federal rules restrict any use of the information to criminally investigate or prosecute any alcohol or drug abuse patient.[facility]In the event this information is protected by the Federal Confidentiality of Alcohol and Drug Abuse Patient Records regulations: The Federal rules restrict any use of the information to criminally investigate or prosecute any alcohol or drug abuse patient.[facility]In the event this information is protected by the Federal Confidentiality of Alcohol and Drug Abuse Patient Records regulations: The Federal rules restrict any use of the information to criminally investigate or prosecute any alcohol or drug abuse patient.[facility]In the event this information is protected by the Federal Confidentiality of Alcohol and Drug Abuse Patient Records regulations: The Federal rules restrict any use of the information to criminally investigate or prosecute any alcohol or drug abuse patient.[facility]In the event this information is protected by the Federal Confidentiality of Alcohol and Drug Abuse Patient Records regulations: The Federal rules restrict any use of the information to criminally investigate or prosecute any alcohol or drug abuse patient.[facility] HospitalIn the event this information is protected by the Federal Confidentiality of Alcohol and Drug Abuse Patient Records regulations: The Federal rules restrict any use of the information to criminally investigate or prosecute any alcohol or drug abuse patient.[facility]In the event this information is protected by the Federal Confidentiality of Alcohol and Drug Abuse Patient Records regulations: The Federal rules restrict any use of the information to criminally investigate or prosecute any alcohol or drug abuse patient.[facility] HospitalIn the event this information is protected by the Federal Confidentiality of Alcohol and Drug Abuse Patient Records regulations: The Federal rules restrict any use of the information to criminally investigate or prosecute any alcohol or drug abuse patient.[facility] HospitalIn the event this information is protected by the Federal Confidentiality of Alcohol and Drug Abuse Patient Records regulations: The Federal rules restrict any use of the information to criminally investigate or prosecute any alcohol or drug abuse patient.[facility] HospitalIn the event this information is protected by the Federal Confidentiality of Alcohol and Drug Abuse Patient Records regulations: The Federal rules restrict any use of the information to criminally investigate or prosecute any alcohol or drug abuse patient.[facility] [place] [facility] HospitalIn the event this information is protected by the Federal Confidentiality of Alcohol and Drug Abuse Patient Records regulations: The Federal rules restrict any use of the information to criminally investigate or prosecute any alcohol or drug abuse patient.[facility] [place] [facility] HospitalIn the event this information is protected by the Federal Confidentiality of Alcohol and Drug Abuse Patient Records regulations: The Federal rules restrict any use of the information to criminally investigate or prosecute any alcohol or drug abuse patient.[facility] [place] [facility] HospitalIn the event this information is protected by the Federal Confidentiality of Alcohol and Drug Abuse Patient Records regulations: The Federal rules restrict any use of the information to criminally investigate or prosecute any alcohol or drug abuse patient.[facility] [place] [facility] HospitalIn the event this information is protected by the Federal Confidentiality of Alcohol and Drug Abuse Patient Records regulations: The Federal rules restrict any use of the information to criminally investigate or prosecute any alcohol or drug abuse patient.[facility] [place] [facility] HospitalIn the event this information is protected by the Federal Confidentiality of Alcohol and Drug Abuse Patient Records regulations: The Federal rules restrict any use of the information to criminally investigate or prosecute any alcohol or drug abuse patient.[facility] [place] [facility] HospitalIn the event this information is protected by the Federal Confidentiality of Alcohol and Drug Abuse Patient Records regulations: The Federal rules restrict any use of the information to criminally investigate or prosecute any alcohol or drug abuse patient.[facility] [place] [facility] HospitalIn the event this information is protected by the Federal Confidentiality of Alcohol and Drug Abuse Patient Records regulations: The Federal rules restrict any use of the information to criminally investigate or prosecute any alcohol or drug abuse patient.[facility] [place] [facility] HospitalIn the event this information is protected by the Federal Confidentiality of Alcohol and Drug Abuse Patient Records regulations: The Federal rules restrict any use of the information to criminally investigate or prosecute any alcohol or drug abuse patient.[facility] [place] [facility] HospitalIn the event this information is protected by the Federal Confidentiality of Alcohol and Drug Abuse Patient Records regulations: The Federal rules restrict any use of the information to criminally investigate or prosecute any alcohol or drug abuse patient.[facility] [place] [facility] HospitalIn the event this information is protected by the Federal Confidentiality of Alcohol and Drug Abuse Patient Records regulations: The Federal rules restrict any use of the information to criminally investigate or prosecute any alcohol or drug abuse patient.[facility] [place] [facility] HospitalIn the event this information is protected by the Federal Confidentiality of Alcohol and Drug Abuse Patient Records regulations: The Federal rules restrict any use of the information to criminally investigate or prosecute any alcohol or drug abuse patient.[facility] [place] [facility] HospitalIn the event this information is protected by the Federal Confidentiality of Alcohol and Drug Abuse Patient Records regulations: The Federal rules restrict any use of the information to criminally investigate or prosecute any alcohol or drug abuse patient.[facility] [place] [facility] HospitalIn the event this information is protected by the Federal Confidentiality of Alcohol and Drug Abuse Patient Records regulations: The Federal rules restrict any use of the information to criminally investigate or prosecute any alcohol or drug abuse patient.[facility] [place] [facility] HospitalIn the event this information is protected by the Federal Confidentiality of Alcohol and Drug Abuse Patient Records regulations: The Federal rules restrict any use of the information to criminally investigate or prosecute any alcohol or drug abuse patient.[facility] [place] [facility] HospitalIn the event this information is protected by the Federal Confidentiality of Alcohol and Drug Abuse Patient Records regulations: The Federal rules restrict any use of the information to criminally investigate or prosecute any alcohol or drug abuse patient.[facility] [place] [facility] HospitalIn the event this information is protected by the Federal Confidentiality of Alcohol and Drug Abuse Patient Records regulations: The Federal rules restrict any use of the information to criminally investigate or prosecute any alcohol or drug abuse patient.[facility] [place] [facility] HospitalIn the event this information is protected by the Federal Confidentiality of Alcohol and Drug Abuse Patient Records regulations: The Federal rules restrict any use of the information to criminally investigate or prosecute any alcohol or drug abuse patient.[facility] [place] [facility] HospitalIn the event this information is protected by the Federal Confidentiality of Alcohol and Drug Abuse Patient Records regulations: The Federal rules restrict any use of the information to criminally investigate or prosecute any alcohol or drug abuse patient.[facility] [place] [facility] HospitalIn the event this information is protected by the Federal Confidentiality of Alcohol and Drug Abuse Patient Records regulations: The Federal rules restrict any use of the information to criminally investigate or prosecute any alcohol or drug abuse patient.[facility] [place] [facility] HospitalIn the event this information is protected by the Federal Confidentiality of Alcohol and Drug Abuse Patient Records regulations: The Federal rules restrict any use of the information to criminally investigate or prosecute any alcohol or drug abuse patient.[facility] [place] [facility] HospitalIn the event this information is protected by the Federal Confidentiality of Alcohol and Drug Abuse Patient Records regulations: The Federal rules restrict any use of the information to criminally investigate or prosecute any alcohol or drug abuse patient.[facility] [place] [facility] HospitalIn the event this information is protected by the Federal Confidentiality of Alcohol and Drug Abuse Patient Records regulations: The Federal rules restrict any use of the information to criminally investigate or prosecute any alcohol or drug abuse patient.[facility] [place] [facility] HospitalIn the event this information is protected by the Federal Confidentiality of Alcohol and Drug Abuse Patient Records regulations: The Federal rules restrict any use of the information to criminally investigate or prosecute any alcohol or drug abuse patient.[facility] [place] [facility] HospitalIn the event this information is protected by the Federal Confidentiality of Alcohol and Drug Abuse Patient Records regulations: The Federal rules restrict any use of the information to criminally investigate or prosecute any alcohol or drug abuse patient.[facility] [place] [facility] HospitalIn the event this information is protected by the Federal Confidentiality of Alcohol and Drug Abuse Patient Records regulations: The Federal rules restrict any use of the information to criminally investigate or prosecute any alcohol or drug abuse patient.[facility] [place] [facility] HospitalIn the event this information is protected by the Federal Confidentiality of Alcohol and Drug Abuse Patient Records regulations: The Federal rules restrict any use of the information to criminally investigate or prosecute any alcohol or drug abuse patient.[facility] [place] [facility] HospitalIn the event this information is protected by the Federal Confidentiality of Alcohol and Drug Abuse Patient Records regulations: The Federal rules restrict any use of the information to criminally investigate or prosecute any alcohol or drug abuse patient.[facility] [place] [facility] HospitalIn the event this information is protected by the Federal Confidentiality of Alcohol and Drug Abuse Patient Records regulations: The Federal rules restrict any use of the information to criminally investigate or prosecute any alcohol or drug abuse patient.[facility] [place] [facility] HospitalIn the event this information is protected by the Federal Confidentiality of Alcohol and Drug Abuse Patient Records regulations: The Federal rules restrict any use of the information to criminally investigate or prosecute any alcohol or drug abuse patient.[facility] [place] [facility] HospitalIn the event this information is protected by the Federal Confidentiality of Alcohol and Drug Abuse Patient Records regulations: The Federal rules restrict any use of the information to criminally investigate or prosecute any alcohol or drug abuse patient.[facility] [place] [facility] HospitalIn the event this information is protected by the Federal Confidentiality of Alcohol and Drug Abuse Patient Records regulations: The Federal rules restrict any use of the information to criminally investigate or prosecute any alcohol or drug abuse patient.[facility] [place] [facility] HospitalIn the event this information is protected by the Federal Confidentiality of Alcohol and Drug Abuse Patient Records regulations: The Federal rules restrict any use of the information to criminally investigate or prosecute any alcohol or drug abuse patient.[facility] [place] [facility] HospitalIn the event this information is protected by the Federal Confidentiality of Alcohol and Drug Abuse Patient Records regulations: The Federal rules restrict any use of the information to criminally investigate or prosecute any alcohol or drug abuse patient.[facility] [place] [facility] HospitalIn the event this information is protected by the Federal Confidentiality of Alcohol and Drug Abuse Patient Records regulations: The Federal rules restrict any use of the information to criminally investigate or prosecute any alcohol or drug abuse patient.[facility] [place] [facility] HospitalIn the event this information is protected by the Federal Confidentiality of Alcohol and Drug Abuse Patient Records regulations: The Federal rules restrict any use of the information to criminally investigate or prosecute any alcohol or drug abuse patient.[facility] [place] [facility] HospitalIn the event this information is protected by the Federal Confidentiality of Alcohol and Drug Abuse Patient Records regulations: The Federal rules restrict any use of the information to criminally investigate or prosecute any alcohol or drug abuse patient.[facility] [place] [facility] HospitalIn the event this information is protected by the Federal Confidentiality of Alcohol and Drug Abuse Patient Records regulations: The Federal rules restrict any use of the information to criminally investigate or prosecute any alcohol or drug abuse patient.[facility] [place] [facility] HospitalIn the event this information is protected by the Federal Confidentiality of Alcohol and Drug Abuse Patient Records regulations: The Federal rules restrict any use of the information to criminally investigate or prosecute any alcohol or drug abuse patient.[facility] [place] [facility] HospitalIn the event this information is protected by the Federal Confidentiality of Alcohol and Drug Abuse Patient Records regulations: The Federal rules restrict any use of the information to criminally investigate or prosecute any alcohol or drug abuse patient.[facility] [place] [facility] HospitalIn the event this information is protected by the Federal Confidentiality of Alcohol and Drug Abuse Patient Records regulations: The Federal rules restrict any use of the information to criminally investigate or prosecute any alcohol or drug abuse patient.[facility] [place] [facility] HospitalIn the event this information is protected by the Federal Confidentiality of Alcohol and Drug Abuse Patient Records regulations: The Federal rules restrict any use of the information to criminally investigate or prosecute any alcohol or drug abuse patient.[facility] [place] [facility] HospitalIn the event this information is protected by the Federal Confidentiality of Alcohol and Drug Abuse Patient Records regulations: The Federal rules restrict any use of the information to criminally investigate or prosecute any alcohol or drug abuse patient.[facility] [place] [facility] HospitalIn the event this information is protected by the Federal Confidentiality of Alcohol and Drug Abuse Patient Records regulations: The Federal rules restrict any use of the information to criminally investigate or prosecute any alcohol or drug abuse patient.[facility] [place] [facility] HospitalIn the event this information is protected by the Federal Confidentiality of Alcohol and Drug Abuse Patient Records regulations: The Federal rules restrict any use of the information to criminally investigate or prosecute any alcohol or drug abuse patient.[facility] [place] [facility] HospitalIn the event this information is protected by the Federal Confidentiality of Alcohol and Drug Abuse Patient Records regulations: The Federal rules restrict any use of the information to criminally investigate or prosecute any alcohol or drug abuse patient.[facility] [place] [facility] HospitalIn the event this information is protected by the Federal Confidentiality of Alcohol and Drug Abuse Patient Records regulations: The Federal rules restrict any use of the information to criminally investigate or prosecute any alcohol or drug abuse patient.[facility] [place] [facility] HospitalIn the event this information is protected by the Federal Confidentiality of Alcohol and Drug Abuse Patient Records regulations: The Federal rules restrict any use of the information to criminally investigate or prosecute any alcohol or drug abuse patient.[facility] Reason for Visit (unrecogniz ed section and content) Reason Comments Physical Therapy Specialty Diagnoses / Procedures Referred By Contac t Referred To Contact Physical Therapy / PHYSICAL THERAPY Diagnoses S/P AKA (above knee amputation), left (HCC) [Z89.612] Procedures PHYSICAL THERAPY EVALUATION HIGH COMPLEX 45 MINS THERAPEUTIC EXERCISES RE, EA 15 MIN. NEW RS PT AMPUTATION Elizabeth Ball, INEZ.PIANO MECHANIC 1 [facility] [address] [place] [address] Kath Horton, PT [address] [place] [address] Referral ID Status Reason Start Date Expiration Date V isits Requested Visits Authorized [id number] Authorized 09/20/2022 09/19/2023 99 99 Reason Comments PT Progress Note Specialty Diagnoses / Procedures Referred By Contac t Referred To Contact PHYSICAL THERAPY Diagnoses Acute right-sided low back pain with right-sided sciatica Procedures CONSULT TO PHYSICAL THERAPY Davin August PA-C [address] [place] [address] [facility] [address] [place] [address] Referral ID Status Reason Start Date Expiration Date V isits Requested Visits Authorized [id number] Authorized 09/20/2021 09/19/2022 99 99 Reason Comments [...] Severino MD [address] [facility] [place] [address] Referral ID Status Reason Start Date Expiration Date Visits Requested Visits Authorized [id number] Pending Review PCP Requested Referral 12/22/2021 12/22/2022 1 1 Reason Comments PT Eval Reason Comments Patient Question Reason Comments Pain Patient Update phone number change to call him back Orders MRI Reason Onset Date Comments Transition Of Care 03/03/2022 [facility] discharge 03-02-22- initial outreach Reason Comments Transition [...] CONTRAST MATERIAL Malgorzata Kirkpatrick MD [address] [place] [address] Mr Imaging Referral ID Status Reason Start Date Expiration Date V isits Requested Visits Authorized [id number] Closed Auto-Generate d Referral 04/14/2022 05/14/2023 1 1 Reason Comments Appointment Appointment Reason Comments Appointment Specialty Diagnoses / Procedures Referred By Contac t Referred To Contact CT IMAGING Diagnoses Disorder of artery or arteriole (HCC) Procedures CTA CHEST (GATED) W IVCON CT ANGIOGRAPHY CHEST W/CONTRAST/NONCONTRAST Christi Jones MD 1 [facility] [address] [place] [address] Ct Imaging Referral ID Status Reason Start Date Expiration Date V isits Requested Visits Authorized [id number] Closed Auto-Generate d Referral 04/21/2022 05/21/2023 1 [...] RN 06/30/2022 Medication ad herence review per [facility] Reason Comments Orders [facility] Reason Comments Follow Up Discharge from snf Reason Comments Orders [facility] Reason Comments Received Outside Medical Records [facility] request for additional documentation for need of CGM 08/03/2022 Reason Comments F/U 3 Month Reason Comments Beta Tester - Other Reason Comments Received Outside Medical Records [facility] provider Reason Comments Referral Information Reason Comments Received Outside Medical Records [facility] Home visit 10/29/2022 Reason Comments PT Eval Patient Education Specialty Diagnoses / Procedures Referred By Contac t Referred To Contact Physical Therapy / PHYSICAL THERAPY Diagnoses S/P AKA (above knee amputation), left (HCC) [Z89.612] Procedures PHYSICAL THERAPY EVALUATION HIGH COMPLEX 45 MINS THERAPEUTIC EXERCISES RE, EA 15 MIN. NEW RS PT AMPUTATION Elizabeth Ball, 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PIANO MECHANIC [address] [facility] [address] [place] [address] Kath Horton, PT [address] [place] [address] Reason Onset Date Comments ACM DRAKE RN [...] Medical Records Home vi sit clinical summary, [facility] 01/29/23 Reason Comments request for outside records [...] neurogenic claudication Procedures CONSULT TO NEUROLOGY OFFICE/OUTPATIENT [facility] 60-74 MINUTES Davin August, LUKEC [address] [place] [id number] Referral ID Status Reason Start Date Expiration Date Visits Requested Visits Authorized [id number] Pending Review PCP Requested Referral 06/09/2023 09/07/2023 1 1 Reason Comments Wound Care Reason Comments Injection reschedule Need Approval to hold Anticoagulation Reason Comments Wound Evaluation 3rd and 4th toes Reason Comments Received Outside Medical Records [facility] Tele Audio visit 08/02/2023 Reason Comments Established Patient Follow Up 4-6 week follow-up Wound Check peripheral artery disease Reason Comments Orders [facility] . Reason Comments Transition Of Care Reason Comments Orders [facility] Reason Onset Date Comments Post-Acute Transition 10/28/[address] [facility] TCM PA C Follow up #1 Reason Comments Received Outside Medical Records [facility] for SN, PT, STONE DRILLER HELPER to evaluate and treat. 10/21/2023 Reason Comments Received Outside Medical Records [facility] Orders for OT Eval and treat for ADL's 10/29/2023 Reason Onset Date Comments Post-Acute Transition 11/04/[address] [facility] TCM PA C Follow up #2 chart review Reason Comments Question Brenda, [facility], Reason Comments Received Outside Medical Records AMTJaquelin MD Reason Comments Post Op 4-6 weeks [...] Outreach Reason Comments Received Outside Medical Records [facility] ([facility]) Mobile physician summary 12/07/2023 Reason Onset Date Comments Post-Acute Transition 12/22/2023 [facility] Reason Onset Date Comments Post-Acute Transition 12/29/2023 [facility] Reason Onset Date Comments Population Health Navigation Outreach 12/29/2023 [facility] HCC/ CARE GAPS Reason Onset Date Comments Refill Request 01/03/2024 Reason Onset Date Comments Refill Request 01/11/2024 Reason Comments Patient Update Medication Problem Medication clarifica tion needed Received Outside Medical Records [employer] Telephone visit summary 03/06/2024 Reason Comments Received Outside Medical Records AMT Reason Comments Recheck Reason Onset Date Comments [...] month Reason Comments Received Outside Medical Records [facility] Verbal order for PT 06/26/2024 Reason Comments Orders [facility] Reason Comments Release Of Medical Records Home Care Recent H&P Reason Comments Cardiology Follow Up Coronary artery dis ease Reason Comments Office Notes Faxed Reason Comments New Patient Evaluation Reason Comments Cough Sweats, sore throat, x 2 days Reason Comments Auth Determination Reason Comments Received Outside Medical Records [facility] PT order 1w1 week of 08/21/2024 Reason Comments Medicare Wellness Exam Reason Comments Orders [facility] Reason Comments Received Outside Medical Records [facility] Plan of care orders. 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 [place], [place] [id number] Cardiology 08/11/17 Landen Clement MD [address] [place] [address], [address] [address] Endocrinology 10/15/21 [employer] Home Electrical Foreman Relationship Specialty Start Date End Date Paulina Severino MD [address] [facility] [address] [place], [place] [id number] PCP - General Family Practice 08/20/21 Selvin Robin MD [address] [place] [address] [place] [address] Vascular Surgery 07/09/16 Davin Moran MD [address] [place] [address] Cardiology 08/11/17 Landen Clement MD [address] [place] [address], [address] [place] [address] Endocrinology 10/15/21 [employer] Home Electrical Foreman Relationship Specialty Start Date End Date Paulina Severino MD [address] [facility] [address] [place], [place] [id number] PCP - General Family Practice 08/20/21 Selvin Robin MD [address] [place] [address] [place] [address] Vascular Surgery 07/09/16 Davin Moran MD [address] [place] [address] Cardiology 08/11/17 Landen Clement MD [address] [place] [phone] Endocrinology 10/15/21 [employer] Home Electrical Foreman Relationship Specialty Start Date End Date Paulina Severino MD [address] [facility] [address] [place], [place] [phone] PCP - General Family Practice 08/20/21 Selvin Robin MD [address] [place] [address] Vascular Surgery 07/09/16 Davin Moran MD [address] [place] [address] [place] [address] Cardiology 08/11/17 Landen Clement MD [address] [place] [phone] Endocrinology 10/15/21 [employer] Home Electrical Foreman Relationship Specialty Start Date End Date Paulina Severino MD [address] [facility] [place] [phone] PCP - General Family Practice 08/20/21 Selvin Robin MD [address] [place] [address] Vascular Surgery 07/09/16 Davin Moran MD [address] [place] [address] Cardiology 08/11/17 Landen Clement MD [address] [place] [address], [address] [place] [phone] Endocrinology 10/15/21 [employer] Home Electrical Foreman Relationship Specialty Start Date End Date Paulina Severino MD [address] [facility] [address] [place], [place] [phone] PCP - General Family Practice 08/20/21 Selvin oRbin MD [address] [place] [address] Vascular Surgery 07/09/16 Davin Moran MD [address] [place] [address] [place] [address] Cardiology 08/11/17 Landen Clement MD [address] [place] [address], [address] [address] Endocrinology 10/15/21 [employer] Home Electrical Foreman Relationship Specialty Start Date End Date Paulina Severino MD [address] [facility] [place] [address] PCP - General Family Practice 08/20/21 Selvin Robin MD [address] [facility] [address] [place] [address] Vascular Surgery 07/09/16 Davin Moran MD [address] [place] [address] Cardiology 08/11/17 Landen Clement MD [address] [place] [address], [address] [place] [address] [phone] Endocrinology 10/15/21 [employer] Relationship Specialty Start Date End Date Paulina Severino MD [address] [place], [place] [phone] PCP - General Family Practice 08/20/21 Selvin Robin MD [address] [place] [address] Vascular Surgery 07/09/16 Davin Moran MD [address] [place] [address] Cardiology 08/11/17 Landen Clement MD [address] [place] [address]393 Endocrinology 10/15/21 [employer] Electrical [employer]man Relationship Specialty Start Date End Date Paulina Severino MD [address] [place], [place] [phone] PCP - General Family Practice 08/20/21 Selvin Robin MD [address] [place] [address] Vascular Surgery 07/09/16 Davin Moran MD [address] [place] [address] [place] [address]13 Cardiology 08/11/17 Landen Clement MD [address] [place] [address], [address] [address] Endocrinology 10/15/21 [employer] Electrical Foreman Relationship Specialty Start Date End Date Paulina Severino MD [address] [place] [phone] PCP - General Family Practice 08/20/21 Selvin Robin MD [address] [place] [address] Vascular Surgery 07/09/16 Davin Moran MD [address] [place] [address] Cardiology 08/11/17 Landen Clement MD [address] [place] [address]01 Endocrinology 10/15/21 [employer] Electrical [employer]man Relationship Specialty Start Date End Date Paulina Severino MD [address] [place] [address] PCP - General Family Practice 08/20/21 Selvin Robin MD [address] [place] [address] Vascular Surgery 07/09/16 Davin Moran MD [address] [place] [address] [place] [address]86 Cardiology 08/11/17 Landen Clement MD [address] [place] [address]03 Endocrinology 10/15/21 [employer] Electrical [employer]man Relationship Specialty Start Date End Date Paulina Severino MD [address] [place] [address] PCP - General Family Practice 08/20/21 eSlvin Robin MD [address] [place] [address] Vascular Surgery 07/09/16 Davin Moran MD [address] [place] [address] Cardiology 08/11/17 Landen Clement MD [address] [place] [address], [address] [phone] Endocrinology 10/15/21 [employer] Home Electrical [employer]man Relationship Specialty Start Date End Date Paulina Severino MD [address] [place], [place] [phone] PCP - General Family Practice 08/20/21 Selvin Robin MD [address] [place] [address] Vascular Surgery 07/09/16 Davin Moran MD [facility] [address] [address] Cardiology 08/11/17 Landen Clement MD [address] [place] [address] 59466 Endocrinology 10/15/21 [employer] Home Electrical Foreman Relationship Specialty Start Date End Date Paulina Severino MD [address] [place], [place] [phone] PCP - General Family Practice 08/20/21 Selvin Robin MD [address] [facility] [address] [place] [address] Vascular Surgery 07/09/16 Davin Moran MD [address] [address] Cardiology 08/11/17 Landen Clement MD [address] [place] [address], [address] [phone] Endocrinology 10/15/21 [employer] Home Electrical Foreman Relationship Specialty Start Date End Date Paulina Severino MD [address] [place] [phone] PCP - General Family Practice 08/20/21 Selvin Robin MD [address] [place] [address] Vascular Surgery 07/09/16 Davin Moran MD [address] [place] [address] Cardiology 08/11/17 Landen Clement MD [address] [place] [address], [address] [address] Endocrinology 10/15/21 [employer] Home Electrical [employer]man Relationship Specialty Start Date End Date Paulina Severino MD [address] [place] [address] PCP - General Family Practice 08/20/21 Selvin Robin MD [address] [place] [address] Vascular Surgery 07/09/16 Davin Moran MD [address] [place] [address] [place] [address]327 Cardiology 08/11/17 Landen Clement MD [address] [place] [address], [address] [address] Endocrinology 10/15/21 [employer] Home Electrical [employer]man Relationship Specialty Start Date End Date Paulina Severino MD [address] [place] [address] PCP - General Family Practice 08/20/21 Selvin Robin MD [address] [place] [address] Vascular Surgery 07/09/16 Davin Moran MD 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 [place] [address] [place] [address] 57852 Cardiology 08/11/17 Landen Clement MD [address] [place] [address], [address] [address] Endocrinology 10/15/21 [employer] Home Electrical Foreman Relationship Specialty Start Date End Date Paulina Severino MD [address] [place] [address] PCP - General Family Practice 08/20/21 Selvin Robin MD [address] [place] [address] Vascular Surgery 07/09/16 Davin Moran MD [address] [place] [address] Cardiology 08/11/17 Landen Clement MD [address] [place] [address], [address] [place] [address] [phone] Endocrinology 10/15/21 [employer] Home Electrical [employer]man Relationship Specialty Start Date End Date Paulina Severino MD [address] [place] [address] PCP - General Family Practice 08/20/21 Selvin Robin MD [address] [place] [address] Vascular Surgery 07/09/16 Davin Moran MD [address] [address] Cardiology 08/11/17 Landen Clement MD [address] [place] [address]63 Endocrinology 10/15/21 [employer] Home Electrical [employer]man Relationship Specialty Start Date End Date Paulina Severino MD [address] [place] [phone] PCP - General Family Practice 08/20/21 Selvin Robin MD [address] [place] [address] Vascular Surgery 07/09/16 Davin Moran MD [address] [address] Cardiology 08/11/17 Landen Clement MD [address] [place] [address]05 Endocrinology 10/15/21 [employer] Home Electrical Foreman Relationship Specialty Start Date End Date Paulina Severino MD [address] [place] [phone] PCP - General Family Practice 08/20/21 Selvin Robin MD [address] [place] [address] Vascular Surgery 07/09/16 Davin Moran MD [address] [place] [address] Cardiology 08/11/17 Landen Clement MD [address] [place] [address], [address] [place] [address]605 Endocrinology 10/15/21 [employer] Home Electrical [employer]man Relationship Specialty Start Date End Date Paulina Severino MD [address] [place] [address] PCP - General Family Practice 08/20/21 Selvin Robin MD [address] [place] [address] Vascular Surgery 07/09/16 Davin Moran MD [address] [place] [address] [place] [address] 39208 Cardiology 08/11/17 Landen Clement MD [address] [place] [address], [address] [address] Endocrinology 10/15/21 [employer] Home Electrical [employer]man Relationship Specialty Start Date End Date Paulina Severino MD [address] [place] [address] PCP - General Family Practice 08/20/21 Selvin Robin MD [address] [place] [address] Vascular Surgery 07/09/16 Davin Moran MD [address] [place] [address] Cardiology 08/11/17 Landen Clement MD [address] [place] [address], [address] [address]264 Endocrinology 10/15/21 [employer] Home Electrical [employer]man Relationship Specialty Start Date End Date Paulina Severino MD [address] [place] [phone] PCP - General Family Practice 08/20/21 Selvin Robin MD [address] [facility] [address] [place] [address] Vascular Surgery 07/09/16 Davin Moran MD [address] [place] [address] Cardiology 08/11/17 Landen Clement MD [address] [place] [address] 8[address]32 Endocrinology 10/15/21 [employer] Home Electrical [employer]man Relationship Specialty Start Date End Date Paulina Severino MD [address] [place] 432221 PCP - General Family Medicine 08/20/21 Selvin Robin MD [address] [facility] [address] [place] [address] Vascular Surgery 07/09/16 Davin Moran MD [address] [address] Cardiology 08/11/17 Landen Clement MD [address] [place] [address], [address] [address]36 Endocrinology 10/15/21 [employer] Home Electrical Foreman Relationship Specialty Start Date End Date Paulina Severino MD [address] [place] [phone] PCP - General Family Medicine 08/20/21 Selvin Robin MD [address] [facility] [address] [place] [address] Vascular Surgery 07/09/16 Davin Moran MD [address] [place] [address] Cardiology 08/11/17 Landen Clement MD [address] [place] [address], [address] [address] Endocrinology 10/15/21 [employer] Electrical [employer]man Relationship Specialty Start Date End Date Paulina Severino MD [address] [place] [phone] PCP - General Family Medicine 08/20/21 Selvin Robin MD [address] [place] [address] [place] [address] Vascular Surgery 07/09/16 Davin Moran MD [address] [address] Cardiology 08/11/17 Landen Clement MD [address] [place] [address] 7[address]12 Endocrinology 10/15/21 [employer] Home Electrical Foreman Relationship Specialty Start Date End Date Paulina Severino MD [address] [place] [address] PCP - General Family Medicine 08/20/21 Selvin Robin MD [address] [facility] [address] [facility] [address] [place] [address] Vascular Surgery 07/09/16 Davin Moran MD [address] [place] [address] [place] [address] 86450 Cardiology 08/11/17 Landen Clement MD [address] [place] [address], [address] [phone] Endocrinology 10/15/21 [employer] Electrical [employer]man Relationship Specialty Start Date End Date Paulina Severino MD [address] [place], [place] [phone] PCP - General Family Medicine 08/20/21 Selvin Robin MD 1 [facility] [address] [place] [address] Vascular Surgery 07/09/16 Davin Moran MD [address] [address] Cardiology 08/11/17 Landen Clement MD [address] [place] [address] 92436 Endocrinology 10/15/21 [employer] Home Electrical Foreman Relationship Specialty Start Date End Date Paulina Severino MD [address] [place], [place] [phone] PCP - General Family Medicine 08/20/21 Selvin Robin MD 1 [facility] [address] [place] [address] Vascular Surgery 07/09/16 Davin Moran MD [address] [address] Cardiology 08/11/17 Landen Clement MD [address] [place] [address] [phone] Endocrinology 10/15/21 [employer] Home Electrical Foreman Relationship Specialty Start Date End Date Paulina Severino MD [address] [place] [phone] PCP - General Family Medicine 08/20/21 Selvin Robin MD [address] [place] [address] Vascular Surgery 07/09/16 Davin Moran MD [address] [place] [address] Cardiology 08/11/17 Landen Clement MD [address] [place] [address], [address] [address] Endocrinology 10/15/21 [employer] Home Electrical [employer]man Relationship Specialty Start Date End Date Paulina Severino MD [address] [place] [phone] PCP - General Family Medicine 08/20/21 Selvin Robin MD [address] [place] [address] Vascular Surgery 07/09/16 Davin Moran MD [address] [place] [address] Cardiology 08/11/17 Landen Clement MD [address] [place] [address], [address] 18853 Endocrinology 10/15/21 [employer] Home Electrical [employer]man Relationship Specialty Start Date End Date Paulina Severino MD [address] [place] [address] PCP - General Family Medicine 08/20/21 Selvin Robin MD [address] [place] [address] Vascular Surgery 07/09/16 Davin Moran MD [address] [place] [address] Cardiology 08/11/17 Landen Clement MD [address] [place] [address] [phone] Endocrinology 10/15/21 [employer] Home Electrical [employer]man Relationship Specialty Start Date End Date Paulina Severino MD [address] [place], [place] [phone] PCP - General Family Medicine 08/20/21 Selvin Robin MD [address] [place] [address] Vascular Surgery 07/09/16 Davin Moran MD [address] [place] [address] [place] [address]376 Cardiology 08/11/17 Landen Clement MD [address] [place] [address] 8[address]84 Endocrinology 10/15/21 [employer] Electrical [employer]man Relationship Specialty Start Date End Date Paulina Severino MD [address] [place], [place] [phone] PCP - General Family Medicine 08/20/21 Selvin Robin MD [address] [place] [address] Vascular Surgery 07/09/16 Davin Moran MD [address] [place] [address] Cardiology 08/11/17 Landen Clement MD [address] [place] [address], [address] [phone] Endocrinology 10/15/21 [employer] Electrical [employer]man Relationship Specialty Start Date End Date Paulina Severino MD [address] [place] [id number] PCP - General Family Medicine 08/20/21 Selvin Robin MD [address] [place] [address] Vascular Surgery 07/09/16 Davin Moran MD [address] [place] [address] [place] [address]17 Cardiology 08/11/17 Landen Clement MD [address] [place] [address], [address] [place] [address] Endocrinology 10/15/21 [employer] Home Electrical Foreman Relationship Specialty Start Date End Date Paulina Severino MD [address] [place] [address] PCP - General Family Medicine 08/20/21 Selvin Robin MD [address] [facility] [address] [place] [address] Vascular Surgery 07/09/16 Davin Moran MD [address] [address] Cardiology 08/11/17 Landen Clement MD [address] [place] [address], [address] [place] [address]41 Endocrinology 10/15/21 [employer] Home Electrical Foreman Relationship Specialty Start Date End Date Paulina Severino MD [address] [place] [address] PCP - General Family Medicine 08/20/21 Selvin Robin MD [address] [place] [address] Vascular Surgery 07/09/16 Davin Moran MD [address] [place] [address] Cardiology 08/11/17 Landen Clement MD [address] [place] [address], [address] [address] Endocrinology 10/15/21 [employer] Home Electrical Foreman Relationship Specialty Start Date End Date Paulina Severino MD [address] [place] [address] PCP - General Family Medicine 08/20/21 Selvin Robin MD [address] [place] [address] Vascular Surgery 07/09/16 Davin Moran MD [address] [address] Cardiology 08/11/17 Landen Clement MD [address] [place] [address], [address] [address] Endocrinology 10/15/21 [employer] Electrical [employer]man Relationship Specialty Start Date End Date Paulina Severino MD [address] [place] [address] PCP - General Family Medicine 08/20/21 Selvin Robin MD [address] [place] [address] Vascular Surgery 07/09/16 Davin Moran MD [address] [place] [address] Cardiology 08/11/17 Landen Clement MD [address] [place] [address], [address] [place] [address] 9[address]88 Endocrinology 10/15/21 [employer] Electrical [employer]man Relationship Specialty Start Date End Date Paulina Severino MD [address] [place] 111013 [phone] PCP - General Family Medicine 08/20/21 Selvin Robin MD [address] [place] [address] Vascular Surgery 07/09/16 Davin Moran MD [address] [place] [address] Cardiology 08/11/17 Landen Clement MD [address] [place] [address] 52414 Endocrinology 10/15/21 [employer] Electrical [employer]man Relationship Specialty Start Date End Date Paulina Severino MD [address] [place], [place] 490666 [phone] PCP - General Family Medicine 08/20/21 Selvin Robin MD [address] [place] [address] Vascular Surgery 07/09/16 Davin Moran MD [address] [address] Cardiology 08/11/17 Landen Clement MD [address] [place] [address] 25419 Endocrinology 10/15/21 Motor Home Electrical Foreman Relationship Specialty Start Date End Date Paulina Severino MD [address] [place] [address] PCP - General Family Medicine 08/20/21 Selvin Robin MD [address] [place] [address] Vascular Surgery 07/09/16 Davin Moran MD [address] [place] [address] Cardiology 08/11/17 Landen Clement MD [address] [place] [address], [address] [address] Endocrinology 10/15/21 [employer] Electrical [employer]man Relationship Specialty Start Date End Date Paulina Severino MD [address] [place], [place] 373240 [phone] PCP - General Family Medicine 08/20/21 Selvin Robin MD [address] [place] [address] Vascular Surgery 07/09/16 Davin Moran MD [address] [place] [address] [place] [address] 49720 Cardiology 08/11/17 Landen Celment MD [address] [place] [address], [address] [place] [address] 50834 Endocrinology 10/15/21 [employer] Electrical [employer]man Relationship Specialty Start Date End Date Paulina Severino MD [address] [place], [place] [phone] PCP - General Family Medicine 08/20/21 Selvin Robin MD [address] [place] [address] [place] [address] Vascular Surgery 07/09/16 Davin Moran MD [address] [place] [address] Cardiology 08/11/17 Landen Clement MD [address] [place] [address], [address] [address] Endocrinology 10/15/21 [employer] Electrical [employer]man Relationship Specialty Start Date End Date Paulina Severino MD [address] [place], [place] [phone] PCP - General Family Medicine 08/20/21 Selvin Robin MD [address] [place] [address] Vascular Surgery 07/09/16 Davin Moran MD [address] [place] [address] Cardiology 08/11/17 Landen Clement MD [address] [place] [address], [address] [address]28 Endocrinology 10/15/21 [employer] Home Electrical [employer]man Relationship Specialty Start Date End Date Paulina Severino MD [address] [place], [place] 274821 PCP - General Family Medicine 08/20/21 Selvin Robin MD [address] [facility] [address] [place] [address] Vascular Surgery 07/09/16 Davin Moran MD [address] [place] [address] Cardiology 08/11/17 Landen Clement MD [address] [place] [address], [address] [place] [address] 44958 Endocrinology 10/15/21 [employer] Electrical [employer]man Relationship Specialty Start Date End Date Paulina Severino MD [address] [place] [phone] PCP - General Family Medicine 08/20/21 Selvin Robin MD [address] [place] [address] Vascular Surgery 07/09/16 Davin Moran MD [address] [place] [address] Cardiology 08/11/17 Landen Clement MD [address] [place] [address], [address] [address]70 Endocrinology 10/15/21 [employer] Electrical [employer]man Relationship Specialty Start Date End Date Paulina Severino MD [address] [place], [place] [phone] PCP - General Family Medicine 08/20/21 Selvin Robin MD [address] [place] [address] Vascular Surgery 07/09/16 Davin Moran MD [address] [place] [address] Cardiology 08/11/17 Landen Clement MD [address] [place] [address], [address] [place] [address] 86375 Endocrinology 10/15/21 [employer] Electrical [employer]man Relationship Specialty Start Date End Date Paulina Severino MD [address] [place] [address] PCP - General Family Medicine 08/20/21 Selvin Robin MD [address] [place] [address] Vascular Surgery 07/09/16 Davin Moran MD [address] [place] [address] Cardiology 08/11/17 Landen Clement MD [address] [place] [address], [address] [address] Endocrinology 10/15/21 [employer] Electrical [employer]man Relationship Specialty Start Date End Date Paulina Severino MD [address] [place], [place] [phone] PCP - General Family Medicine 08/20/21 Selvin Robin MD 1 [facility] [address] [place] [address] Vascular Surgery 07/09/16 Davin Moran MD [address] [address] Cardiology 08/11/17 Landen Clement MD [address] [place] [address], [address] [address]74 Endocrinology 10/15/21 [employer] Electrical [employer]man Relationship Specialty Start Date End Date Paulina Severino MD [address] [facility] [place] [phone] PCP - General Family Medicine 08/20/21 Selvin Robin MD 1 [facility] [address] [place] [address] Vascular Surgery 07/09/16 Davin Moran MD [address] [address] Cardiology 08/11/17 Landen Clement MD [address] [place] [address], [address] [phone] Endocrinology 10/15/21 [employer] Electrical [employer]man Relationship Specialty Start Date End Date Paulina Severino MD [address] [facility] [place] [phone] PCP - General Family Medicine 08/20/21 Selvin Robin MD [address] [facility] [address] [place] [address] Vascular Surgery 07/09/16 Davin Moran MD [address] [place] [address] Cardiology 08/11/17 Landen Clmeent MD [address] [place] [address], [address] [address] Endocrinology 10/15/21 [employer] Electrical [employer]man Relationship Specialty Start Date End Date Paulina Severino MD [address] [facility] [address] PCP - General Family Medicine 08/20/21 Selvin Robin MD [address] [facility] [address] [place] [address] Vascular Surgery 07/09/16 Davin Moran MD [address] [place] [address]81 Cardiology 08/11/17 Landen Clement MD [address] [place] [address], [address] [address]20 Endocrinology 10/15/21 [employer] Electrical [employer]man Relationship Specialty Start Date End Date Paulina Severino MD [address] [facility] [place] [address] PCP - General Family Medicine 08/20/21 Selvin Robin MD [address] [place] [address] Vascular Surgery 07/09/16 Davin Moran MD [address] [place] [address] Cardiology 08/11/17 Landen Clement MD [address] [place] [address], [address] [address] Endocrinology 10/15/21 [employer] Electrical [employer]man Relationship Specialty Start Date End Date Paulina Severino MD [address] [place], [place] 124491 PCP - General Family Medicine 08/20/21 Selvin Robin MD [address] [place] [address] Vascular Surgery 07/09/16 Davin Moran MD [address] [place] [address]177 Cardiology 08/11/17 Landen Clement MD [address] [place] [address], [address] [address] Endocrinology 10/15/21 Motor Home Electrical Foreman Relationship Specialty Start Date End Date Paulina Severino MD [address] [place], [place] [address] PCP - General Family Medicine 08/20/21 Selvin Robin MD [address] [place] [address] [place] [address] Vascular Surgery 07/09/16 Davin Moran MD [address] [place] [address] [place] [address] Cardiology 08/11/17 Landen Clement MD [address] [place] [address], [address] [place] [address] [phone] Endocrinology 10/15/21 Motor Home Electrical Foreman Relationship Specialty Start Date End Date Paulina Severino MD [address] [place] [address] PCP - General Family Medicine 08/20/21 Selvin Robin MD [address] [facility] [address] [place] [phone] Vascular Surgery 07/09/16 Davin Moran MD [address] [place] [address] [place] [address] Cardiology 08/11/17 Landen Celment MD [address] [place] [address] [phone] Endocrinology 10/15/21 Motor Home Electrical Foreman Relationship Specialty Start Date End Date Paulina Severino MD [address] [place], [place] [address] PCP - General Family Medicine 08/20/21 Selvin Robin MD [address] [facility] [address] [place] [phone] Vascular Surgery 07/09/16 Davin Moran MD [address] [place] [address] [place] [address] Cardiology 08/11/17 Landen Clement MD [address] [place] [address] [phone] Endocrinology 10/15/21 Motor Home Electrical Foreman Relationship Specialty Start Date End Date Paulina Severino MD [address] [place], [place] 19[address] PCP - General Family Medicine 08/20/21 Selvin Robin MD [address] [place] [address] [place] [phone] Vascular Surgery 07/09/16 Davin Moran MD [address] [facility] [address] [place] [address] Cardiology 08/11/17 Landen Clement MD [address] [place] [address] Endocrinology 10/15/21 Motor Home Electrical Foreman Relationship Specialty Start Date End Date Paulina Severino MD [address] [place] [address] PCP - General Family Medicine 08/20/21 Selvin Robin MD [address] [facility] [address] [place] [phone] Vascular Surgery 07/09/16 Davin Moran MD [address] [address] Cardiology 08/11/17 Landen Clement MD [address] [place] [address] 22099 Endocrinology 10/15/21 Motor Home Electrical Foreman Relationship Specialty Start Date End Date Paulina Severino MD [address] [place] 778[address] PCP - General Family Medicine 08/20/21 Selvin Robin MD [address] [place] [address] [place] [phone] Vascular Surgery 07/09/16 Davin Moran MD [address] [place] [address] [place] [address] Cardiology 08/11/17 Landen Clement MD [address] [place] [address] Endocrinology 10/15/21 Motor Home Electrical Foreman Relationship Specialty Start Date End Date Paulina Severino MD [address] [place] 968721 PCP - General Family Medicine 08/20/21 Selvin Robin MD [address] [place] [address] [place] [phone] Vascular Surgery 07/09/16 Davin Moran MD [address] [place] [address] [place] [address] Cardiology 08/11/17 Landen Clement MD [address] [place] [address] Endocrinology 10/15/21 Motor Home Electrical Foreman Relationship Specialty Start Date End Date Paulina Severino MD [address] [place] [address] PCP - General Family Medicine 08/20/21 Selvin Robin MD [address] [place] [address] [place] [phone] Vascular Surgery 07/09/16 Davin Moran MD [address] [place] [address] [place] [address] Cardiology 08/11/17 Landen Clement MD [address] [place] [address] Endocrinology 10/15/21 Motor Home Electrical Foreman Relationship Specialty Start Date End Date Paulina Severino MD [address] [place] [address] PCP - General Family Medicine 08/20/21 Selvin Robin MD [address] [place] [address] [place] [phone] Vascular Surgery 07/09/16 Davin Moran MD [address] [place] [address] [place] [address] Cardiology 08/11/17 Landen Clement MD [address] [place] [address] Endocrinology 10/15/21 Motor Home Electrical Foreman Relationship Specialty Start Date End Date Paulina Severino MD [address] [place] [address] PCP - General Family Medicine 08/20/21 Selvin Robin MD [address] [place] [address] [place] [phone] Vascular Surgery 07/09/16 Davin Moran MD [address] [place] [address] [place] [address] Cardiology 08/11/17 Landen Clement MD [address] [place] [address], [address] [address] Endocrinology 10/15/21 Motor Home Electrical Foreman Relationship Specialty Start Date End Date Paulina Severino MD [address] [place], [place] 962051 PCP - General Family Medicine 08/20/21 Selvin Robin MD [address] [place] [address] [place] [phone] Vascular Surgery 07/09/16 Davin Moran MD [address] [place] [address] [place] [address] Cardiology 08/11/17 Landen Clement MD [address] [place] [address] Endocrinology 10/15/21 Motor Home Electrical Foreman Relationship Specialty Start Date End Date Paulina Severino MD [address] [place] [address] PCP - General Family Medicine 08/20/21 Selvin Robin MD [address] [place] [address] [place] [phone] Vascular Surgery 07/09/16 Davin Moran MD [address] [place] [address] [place] [address] Cardiology 08/11/17 Landen Clement MD [address] [place] [address], [address] [address] Endocrinology 10/15/21 Motor Home Electrical Foreman Relationship Specialty Start Date End Date Paulina Severino MD [address] [place], [place] 120961 PCP - General Family Medicine 08/20/21 Selvin Robin MD [address] [facility] [address] [place] [phone] Vascular Surgery 07/09/16 Davin Moran MD [address] [place] [address] [place], [place] [phone] Cardiology 08/11/17 Landen Clement MD [address] [place] [address] Endocrinology 10/15/21 Motor Home Electrical Foreman Relationship Specialty Start Date End Date Paulina Severino MD [address] [place] [address] PCP - General Family Medicine 08/20/21 Selvin Robin MD [address] [facility] [facility] [address] [place] [phone] Vascular Surgery 07/09/16 Davin Moran MD [address] [place] [address] [place] [address] Cardiology 08/11/17 Landen Clement MD [address] [place] [address], [address] [phone] Endocrinology 10/15/21 Motor Home Electrical Foreman Relationship Specialty Start Date End Date Paulina Severino MD [address] [place], [place] 724201 PCP - General Family Medicine 08/20/21 Selvin Robin MD 1 [facility] [address] [place] [address] Vascular Surgery 07/09/16 Davin Moran MD [address] [address] Cardiology 08/11/17 Landen Clement MD [address] [place] [address] [phone] Endocrinology 10/15/21 Motor Home Electrical Foreman Relationship Specialty Start Date End Date Paulina Severino MD [address] [place] [address] PCP - General Family Medicine 08/20/21 Selvin Robin MD 1 [facility] [address] [place] [address] Vascular Surgery 07/09/16 Davin Moran MD [address] [place] [address] Cardiology 08/11/17 Landen Clement MD [address] [place] [address] [phone] Endocrinology 10/15/21 Motor Home Electrical Foreman Relationship Specialty Start Date End Date Paulina Severino MD [address] [place] [phone] PCP - General Family Medicine 08/20/21 Selvin Robin MD 1 [facility] [address] [place] [address] Vascular Surgery 07/09/16 Davin Moran MD [address] [place] [address] [place] [address] Cardiology 08/11/17 Landen Clement MD [address] [place] [address], [facility] [address] [place], [place] [phone] Endocrinology 10/15/21 Dylan Martinez MD 1 [place] [address] Wound Care 07/16/23 Motor Home Electrical Foreman Relationship Specialty Start Date End Date Paulina Severino MD [address] [place] [address] PCP - General Family Medicine 08/20/21 Selvin Robin MD 1 [facility] [address] [place] [phone] Vascular Surgery 07/09/16 Davin Moran MD [address] [place] [address] [place] [address] Cardiology 08/11/17 Landen Clement MD [address] [place] [address], [facility] [address] [place], [place] [phone] Endocrinology 10/15/21 Dylan Martinez MD 1 [facility] [place] [address] Wound Care 07/16/23 Motor Home Electrical Foreman Relationship Specialty Start Date End Date Paulina Severino MD [address] [place] [address] PCP - General Family Medicine 08/20/21 Selvin Robin MD 1 [facility] [address] [place] [address] Vascular Surgery 07/09/16 Davin Moran MD [address] [place] [address] [place] [address] Cardiology 08/11/17 Landen Clement MD [address] [place] [address], [address] [place] [address] Endocrinology 10/15/21 Dylan Martinez MD 1 [place] [address] Wound Care 07/16/23 Motor Home Electrical Foreman Relationship Specialty Start Date End Date Paulina Severino MD [address] [place] [address] PCP - General Family Medicine 08/20/21 Selvin Robin MD 1 [facility] [address] [place] [address] Vascular Surgery 07/09/16 Davin Moran MD [address] [place] [address] [place] [address] Cardiology 08/11/17 Landen Clement MD [address] [place] [address], [address] [address] Endocrinology 10/15/21 Dylan Martinez MD [address] [place] [address] Wound Care 07/16/23 Motor Home Electrical Foreman Relationship Specialty Start Date End Date Paulina Severino MD [address] [place], [place] 690281 PCP - General Family Medicine 08/20/21 Selvin Robin MD [address] [facility] [address] [place] [phone] Vascular Surgery 07/09/16 Davin Moran MD [address] [place] [address] 225 [place] [address] Cardiology 08/11/17 Landen Clement MD [address] [place] [address] Endocrinology 10/15/21 Dylan Martinez MD [address] [place] [address] Wound Care 07/16/23 Motor Home Electrical Foreman Relationship Specialty Start Date End Date Paulina Severino MD [address] [place], [place] [phone] PCP - General Family Medicine 08/20/21 Selvin Robin MD [address] [facility] [address] [place] [address] Vascular Surgery 07/09/16 Davin Moran MD [address] [place] [address] [place] [address] Cardiology 08/11/17 Landen Clement MD [address] [place] [address], [address] [place] [address] Endocrinology 10/15/21 Dylan Martinez MD [address] [place] [address] Wound Care 07/16/23 Motor Home Electrical Foreman Relationship Specialty Start Date End Date Paulina Severino MD [address] [place] [address] PCP - General Family Medicine 08/20/21 Selvin Robin MD 1 [facility] [address] [place] [address] Vascular Surgery 07/09/16 Davin Moran MD [address] [place] [address] [place] [address] Cardiology 08/11/17 Landen Clement MD [address] [place] [address], [address] [place] [address] Endocrinology 10/15/21 Dylan Martinez MD [address] [facility] [place], [place] [phone] Wound Care 07/16/23 Motor Home Electrical Foreman Relationship Specialty Start Date End Date Paulina Severino MD [address] [place] [address] PCP - General Family Medicine 08/20/21 Selvin Robin MD 1 [facility] [address] [place] [address] Vascular Surgery 07/09/16 Davin Moran MD [address] [place] [address] [place] [address] Cardiology 08/11/17 Landen Clement MD [address] [place] [address], [address] [phone] Endocrinology 10/15/21 Dylan Martinez MD 1 [place] [address] Wound Care 07/16/23 Motor Home Electrical Foreman Relationship Specialty Start Date End Date Paulina Sevreino MD [address] [place] [address] PCP - General Family Medicine 08/20/21 Selvin Robin MD 1 [facility] [address] [place] [phone] Vascular Surgery 07/09/16 Davin Moran MD [address] [place] [address] [place] [address] Cardiology 08/11/17 Landen Clement MD [address] [place] [address], [address] [place] [address] [phone] Endocrinology 10/15/21 Dylan Martinez MD [address] [place] [address] Wound Care 07/16/23 Motor Home Electrical Foreman Relationship Specialty Start Date End Date Paulina Severino MD [address] [place] [address] PCP - General Family Medicine 08/20/21 Selvin Robin MD 1 [facility] [address] [place] [address] Vascular Surgery 07/09/16 Davin Moran MD [address] [place] [address] [place] [address] Cardiology 08/11/17 Landen Clement MD [address] [place] [address], [address] [place] [address] Endocrinology 10/15/21 Dylan Martinez MD 1 [place] [address] Wound Care 07/16/23 Motor Home Electrical Foreman Relationship Specialty Start Date End Date Paulina Severino MD [address] [place] [address] PCP - General Family Medicine 08/20/21 Selvin Robin MD 1 [facility] [address] [place] [address] Vascular Surgery 07/09/16 Davin Moran MD [address] [place] [address] [place] [address] Cardiology 08/11/17 Landen Clement MD [address] [place] [address], [address] [phone] Endocrinology 10/15/21 Dylan Martinez MD [address] [place] [address] Wound Care 07/16/23 Motor Home Electrical Foreman Relationship Specialty Start Date End Date Paulina Severino MD [address] [place], [place] [phone] PCP - General Family Medicine 08/20/21 Selvin Robin MD [address] [facility] [address] [place] [phone] Vascular Surgery 07/09/16 Davin Moran MD 224 [facility] [place] [place], [place] [phone] Cardiology 08/11/17 Landen Clement MD [address] [place] [address], [address] [address] Endocrinology 10/15/21 Dylan Martinez MD [address] [place] [address] Wound Care 07/16/23 Marianna Klein MA Network Navigator Post Acute Care 10/19/23 Motor Home Electrical Foreman Relationship Specialty Start Date End Date Paulina Severino MD [address] [place] [phone] PCP - General Family Medicine 08/20/21 Selvin Robin MD [address] [facility] [address] [place] [address]-8455307-2433 Vascular Surgery 07/09/16 Davin Moran MD [address] [place] [address] [place], [place] [phone] (Fax) Cardiology 08/11/17 Landen Clement MD [address] [place] [address], [facility] [address] [place], [place] [phone] Endocrinology 10/15/21 Dylan Martinez MD [address] [place] [facility] [place], [place] [phone] Wound Care 07/16/23 Marianna Klein MA Network Navigator Post Acute Care 10/19/23 Motor Home Electrical Foreman Relationship Specialty Start Date End Date Paulina Severino MD [address] [place] [address] PCP - General Family Medicine 08/20/21 Selvin Robin MD [address] [facility] [address] [place] [phone] Vascular Surgery 07/09/16 Davin Moran MD [address] [place] [address] [place], [place] [phone] (Fax) Cardiology 08/11/17 Landen Clement MD [address] [place] [address], [address] [place], [place] [phone] Endocrinology 10/15/21 Dylan Martinez MD 1 [place] [address] Wound Care 07/16/23 Marianna Klein MA Network Navigator Post Acute Care 10/19/23 Motor Home Electrical Foreman Relationship Specialty Start Date End Date Paulina Severino MD [address] [place] [address] PCP - General Family Medicine 08/20/21 Selvin Robin MD 1 [facility] [address] [place] [phone] Vascular Surgery 07/09/16 Davin Moran MD [address] [place] [address] 225 [place] [address] Cardiology 08/11/17 Landen Clement MD [address] [place] [address], [address] [place] [address] Endocrinology 10/15/21 Dylan Martinez MD 1 [place] [address] Wound Care 07/16/23 Marianna Klein MA Network Navigator Post Acute Care 10/19/23 Motor Home Electrical Foreman Relationship Specialty Start Date End Date Paulina Severino MD [address] [place], [place] 724491 PCP - General Family Medicine 08/20/21 Selvin Robin MD 1 [facility] [address] [place] [address] Vascular Surgery 07/09/16 Davin Moran MD [address] [place] [address] [place] [address] (Fax) Cardiology 08/11/17 Landen Clement MD [address] [place] [address], [facility] [address] [place], [place] [phone] Endocrinology 10/15/21 Dylan Martinez MD [address] [place] [address] Wound Care 07/16/23 Marianna Klein MA Network Navigator Post Acute Care 10/19/23 Motor Home Electrical Foreman Relationship Specialty Start Date End Date Paulina Severino MD [address] [place], [place] 828151 PCP - General Family Medicine 08/20/21 Selvin Robin MD 1 [facility] [address] [place] [phone] Vascular Surgery 07/09/16 Davin Moran MD [address] [place] [address] [place] [address] (Fax) Cardiology 08/11/17 Landen Clement MD [address] [place] [address], [address] [place], [place] [phone] Endocrinology 10/15/21 Dylan Martinez MD [address] [place] [address] Wound Care 07/16/23 Marianna Klein MA Network Navigator Post Acute Care 10/19/23 Motor Home Electrical Foreman Relationship Specialty Start Date End Date Paulina Severino MD [address] [place], [place] 585331 PCP - General Family Medicine 08/20/21 Selvin Robin MD 1 [facility] [address] [place] [phone] Vascular Surgery 07/09/16 Davin Moran MD [address] [place] [address] 225 [place], [place] [phone] Cardiology 08/11/17 Landen Clement MD [address] [place] [address], [address] [place], [place] [phone] Endocrinology 10/15/21 Dylan Martinez MD 1 [place] [address] Wound Care 07/16/23 Fritz Payan, RN Primary Care Spa Technician Family Medicine 11/16/23 Motor Home Electrical Foreman Relationship Specialty Start Date End Date Paulina [place] MD [address] [place], [place] [phone] PCP - General Family Medicine 08/20/21 Selvin Robin MD 1 [facility] [address] [place] [phone] Vascular Surgery 07/09/16 Davin Moran MD [address] [facility] [address] [place] [address] Cardiology 08/11/17 Landen Clement MD [address] [place] [address] Endocrinology 10/15/21 Dylan Martinez MD [address] [facility] [place], [place] [phone] Wound Care 07/16/23 Fritz Payan, RN Primary Care Spa Technician Family Medicine 11/16/23 Motor Home Electrical Foreman Relationship Specialty Start Date End Date Paulina Severino MD [address] [place] [address] PCP - General Family Medicine 08/20/21 Selvin Robin MD 1 [facility] [address] [place] [phone] Vascular Surgery 07/09/16 Davin Moran MD [address] [facility] [address] [place] [address] Cardiology 08/11/17 Landen Clement MD [address] [place] [address] Endocrinology 10/15/21 Dylan Martinez MD 1 [place], [place] [phone] Wound Care 07/16/23 Fritz Payan, RN Primary Care Spa Technician Family Medicine 11/16/23 Motor Home Electrical Foreman Relationship Specialty Start Date End Date Paulina Severino MD [address] [place] [address] PCP - General Family Medicine 08/20/21 Selvin Robin MD [address] [facility] [address] [place] [phone] Vascular Surgery 07/09/16 Davin Moran MD [address] [place] [address] [place], [place] 44[address]2 Cardiology 08/11/17 Landen Clement MD [address] [place] [address], [address] [place] [address] Endocrinology 10/15/21 Dylan Martinez MD [address] [facility] [place], [place] [phone] Wound Care 07/16/23 Fritz Payan RN Primary Care Spa Technician Family Medicine 11/16/23 Motor Home Electrical Foreman Relationship Specialty Start Date End Date Paulina Severino MD [address] [place] [address] PCP - General Family Medicine 08/20/21 Selvin Robin MD [address] [address] [facility] [address] [place] [phone] Vascular Surgery 07/09/16 Davin Moran MD [address] [place] [address] [place] [address] Cardiology 08/11/17 Landen Clement MD [address] [place] [address] Endocrinology 10/15/21 Dylan Martinez MD [address] [place] [address] Wound Care 07/16/23 Fritz Payan, RN Primary Care Spa Technician Family Medicine 11/16/23 Motor Home Electrical Foreman Relationship Specialty Start Date End Date Paulina Severino MD [address] [place] [address] PCP - General Family Medicine 08/20/21 Selvin Robin MD 1 [facility] [address] [place] [address] Vascular Surgery 07/09/16 Davin Moran MD [address] [facility] [address] [place] [address] Cardiology 08/11/17 Landen Clement MD [address] [place] [address] Endocrinology 10/15/21 Dylan Martinez MD 1 [place] [address] Wound Care 07/16/23 Fritz Payan RN Primary Care Spa Technician Family Medicine 11/16/23 Motor Home Electrical Foreman Relationship Specialty Start Date End Date Paulina Severino MD [address] [place], [place] 0[address]91 PCP - General Family Medicine 08/20/21 Selvin Robin MD [address] [facility] [address] [place] [phone] Vascular Surgery 07/09/16 Davin Moran MD [address] [place] [address] [place] [address] Cardiology 08/11/17 Landen Clement MD [address] [place] [address], [address] [place], [place] [phone] Endocrinology 10/15/21 Dylan Martinez MD [address] [place] [address] Wound Care 07/16/23 Fritz Payan, RN Primary Care Spa Technician Family Medicine 11/16/23 Motor Home Electrical Foreman Relationship Specialty Start Date End Date Paulina Severino MD [address] [address] PCP - General Family Medicine 08/20/21 Selvin Robin MD [address] [facility] [address] [place] [phone] Vascular Surgery 07/09/16 Davin Moran MD [address] [place] [address] [place] [address] Cardiology 08/11/17 Landen Clement MD [address] [place] [address], [address] [place] [address] Endocrinology 10/15/21 Dylan Martinez MD 1 [place] [address] Wound Care 07/16/23 Fritz Payan, RN Primary Care Spa Technician Family Medicine 11/16/23 Motor Home Electrical Foreman Relationship Specialty Start Date End Date Paulina Severino MD [address] [place], [place] 691811 PCP - General Family Medicine 08/20/21 Selvin Robin MD 1 [facility] [address] [place] [phone] Vascular Surgery 07/09/16 Davin Moran MD 224 [facility] [address] [place], [place] [phone] Cardiology 08/11/17 Landen Clement MD [address] [place] [address], [address] [place] [address] Endocrinology 10/15/21 Dylan Martinez MD 1 [place] [address] Wound Care 07/16/23 Fritz Payan, SACHI Primary Care Spa Technician Family Medicine 11/16/23 12/28/23 Motor Home Electrical Foreman Relationship Specialty Start Date End Date Paulina Severino MD [address] [place] 688751 PCP - General Family Medicine 08/20/21 Selvin Robin MD [address] [place] [address] Vascular Surgery 07/09/16 Davin Moran MD [address] [place] [address] Cardiology 08/11/17 Landen Clement MD [address] [place] [address], [facility] [address] [place], [place] [id number] Endocrinology 10/15/21 Dylan Martinez MD [address] [place], [place] [phone] Wound Care 07/16/23 Motor Home Electrical Foreman Relationship Specialty Start Date End Date Paulina Severino MD [address] [place] [address] PCP - General Family Medicine 08/20/21 Selivn Robin MD [address] [place] [address] Vascular Surgery 07/09/16 Davin Moran MD [address] [place] [address] Cardiology 08/11/17 Landen Clement MD [address] [place] [address], [address] [place], [place] [phone] Endocrinology 10/15/21 Dylan Martinez MD [address] [place] [address] Wound Care 07/16/23 Motor Home Electrical Foreman Relationship Specialty Start Date End Date Paulina Severino MD [address] [place], [place] [address] PCP - General Family Medicine 08/20/21 Selvin Robin MD [address] [place] [address] Vascular Surgery 07/09/16 Davin Moran MD [address] [place] [address] Cardiology 08/11/17 Landen Clement MD [address] [place] [address], [address] [place] [address] Endocrinology 10/15/21 Dylan Martinez MD [address] [place] [address] Wound Care 07/16/23 Motor Home Electrical Foreman Relationship Specialty Start Date End Date Paulina Severino MD [address] [place] [address] PCP - General Family Medicine 08/20/21 Selvin Robin MD [address] [place] [phone] Vascular Surgery 07/09/16 Davin Moran MD [address] [place] [address] Cardiology 08/11/17 Landen Clement MD [address] [place] [address], [address] [place] [address] Endocrinology 10/15/21 Dylan Martinez MD [address] [place] [address] Wound Care 07/16/23 Motor Home Electrical Foreman Relationship Specialty Start Date End Date Paulina Severino MD [address] [place] [address] PCP - General Family Medicine 08/20/21 Selvin Robin MD 1 [facility] [address] [place] [phone] Vascular Surgery 07/09/16 Davin Moran MD [address] [place] [address] 225 [place], [place] [phone] Cardiology 08/11/17 Landen Clement MD [address] [place] [address] Endocrinology 10/15/21 Dylan Martinez MD 1 [place] [address] Wound Care 07/16/23 Motor Home Electrical Foreman Relationship Specialty Start Date End Date Paulina Seveirno MD [address] [place], [place] [address]221 PCP - General Family Medicine 08/20/21 Selvin Robin MD 1 [facility] [address] [place] [phone] Vascular Surgery 07/09/16 Davin Moran MD [address] [place] [address] Cardiology 08/11/17 Landen Clement MD [address] [place] [address], [address] [address] Endocrinology 10/15/21 Dylan Martinez MD [address] [place] [address] Wound Care 07/16/23 Motor Home Electrical Foreman Relationship Specialty Start Date End Date Paulina Severino MD [address] [place] [address] PCP - General Family Medicine 08/20/21 Selvin Robin MD [address] [facility] [address] [place] [address] Vascular Surgery 07/09/16 Davin Moran MD [address] [place] [address] Cardiology 08/11/17 Landen lCement MD [address] [place] [address] Endocrinology 10/15/21 Dylan Martinez MD [address] [place] [address] Wound Care 07/16/23 Motor Home Electrical Foreman Relationship Specialty Start Date End Date Paulina Severino MD [address] [place] [phone] PCP - General Family Medicine 08/20/21 Selvin Robin MD [address] [place] [address] Vascular Surgery 07/09/16 Davin Moran MD [address] [place] [address] Cardiology 08/11/17 Landen Clement MD [address] [place] [address], [facility] [address] [place], [place] [phone] Endocrinology 10/15/21 Dylan Martinez MD [address] [place] [address] Wound Care 07/16/23 Motor Home Electrical Foreman Relationship Specialty Start Date End Date Paulina Severino MD [address] [place] [address] PCP - General Family Medicine 08/20/21 Selvin Robin MD [address] [place] [phone] Vascular Surgery 07/09/16 Davin Moran MD [address] [place] [address] [place] [address] Cardiology 08/11/17 Landen Clement MD [address] [place] [address], [address] [place], [place] [phone] Endocrinology 10/15/21 Dylan Martinez MD [address] [place] [address] Wound Care 07/16/23 Motor Home Electrical Foreman Relationship Specialty Start Date End Date Paulina Severino MD [address] [place] [address] PCP - General Family Medicine 08/20/21 Selvin Robin MD [address] [facility] [address] [place] [phone] Vascular Surgery 07/09/16 Davin Moran MD [address] [place] [place] [address] Cardiology 08/11/17 Landen Clement MD [address] [place] [address], [address] [place] [address] Endocrinology 10/15/21 Dylan Martinez MD 1 [place] [address] Wound Care 07/16/23 Motor Home Electrical Foreman Relationship Specialty Start Date End Date Paulina Severino MD [address] [place] [address] PCP - General Family Medicine 08/20/21 Selvin Robin MD [address] [facility] [address] [place] [address] Vascular Surgery 07/09/16 Davin Moran MD [address] [place] [address] Cardiology 08/11/17 Landen Clement MD [address] [place] [address], [address] [place] [address] Endocrinology 10/15/21 Dylan Martinez MD [address] [place] [address] Wound Care 07/16/23 Motor Home Electrical Foreman Relationship Specialty Start Date End Date Paulina Severino MD [address] [place] [address] PCP - General Family Medicine 08/20/21 Selvin Robin MD [address] [facility] [address] [place] [phone] Vascular Surgery 07/09/16 Davin Moran MD [address] [place] [address] 225 [place] [address] Cardiology 08/11/17 Landen Clement MD [address] [place] [address], [facility] [address] [place] [address] Endocrinology 10/15/21 Dylan Martinez MD [address] [place] [address] Wound Care 07/16/23 Motor Home Electrical Foreman Relationship Specialty Start Date End Date Paulina Severino MD [address] [place], [place] 6[address]11 PCP - General Family Medicine 08/20/21 Selvin Robin MD [address] [facility] [address] [place] [phone] Vascular Surgery 07/09/16 Davin Moran MD [address] [place] [address] [place] [address] Cardiology 08/11/17 Landen Clement MD [address] [place] [address], [address] [place] [address] Endocrinology 10/15/21 Dylan Martinez MD [address] [place], [place] [phone] Wound Care 07/16/23 Motor Home Electrical Foreman Relationship Specialty Start Date End Date Paulina Severino MD [address] [place] [address] PCP - General Family Medicine 08/20/21 Selvin Robin MD [address] [facility] [address] [place] [phone] Vascular Surgery 07/09/16 Davin Moran MD [address] [place] [address] (Fax) Cardiology 08/11/17 Landen Clement MD [address] [place] [address], [address] [place] [address] Endocrinology 10/15/21 Dylan Martinez MD [address] [place], [place] [phone] Wound Care 07/16/23 Motor Home Electrical Foreman Relationship Specialty Start Date End Date Paulina Severino MD [address] [place] [address] PCP - General Family Medicine 08/20/21 Selvin Robin MD 1 [facility] [address] [place] [address] Vascular Surgery 07/09/16 Davin Moran MD [address] [place] [address] Cardiology 08/11/17 Landen Clement MD [address] [place] [address], [facility] [address] [place], [place] [phone] Endocrinology 10/15/21 Dylan Martinez MD 1 [place] [address] Wound Care 07/16/23 Motor Home Electrical Foreman Relationship Specialty Start Date End Date Paulina Severino MD [address] [place] [address] PCP - General Family Medicine 08/20/21 Selvin Robin MD 1 [facility] [address] [place] [phone] Vascular Surgery 07/09/16 Davin Moran MD [address] [place] [place] [address] Cardiology 08/11/17 Landen Clement MD [address] [place] [address], [facility] [address] [place], [place] [id number] Endocrinology 10/15/21 Dylan Martinez MD [address] [place] [address] Wound Care 07/16/23 Motor Home Electrical Foreman Relationship Specialty Start Date End Date Paulina Severino MD [address] [place] [address] PCP - General Family Medicine 08/20/21 Selvin Robin MD [address] [facility] [address] [place] [address] Vascular Surgery 07/09/16 Davin Moran MD [address] [place] [address] Cardiology 08/11/17 Landen Clement MD [address] [place] [address], [address] [place] [address] Endocrinology 10/15/21 Dylan Martinez MD [address] [place] [address] Wound Care 07/16/23 Motor Home Electrical Foreman Relationship Specialty Start Date End Date Paulina Severino MD [address] [place] [address] PCP - General Family Medicine 08/20/21 Selvin Robin MD [address] [facility] [address] [place] [address] Vascular Surgery 07/09/16 Davin Moran MD [address] [place] [address] Cardiology 08/11/17 Landen Clement MD [address] [place] [address], [address] [address] Endocrinology 10/15/21 Dylan Martinez MD [address] [place] [address] Wound Care 07/16/23 Motor Home Electrical Foreman Relationship Specialty Start Date End Date Paulina Severino MD [address] [place], [place] [phone] PCP - General Family Medicine 08/20/21 Selvin Robin MD [address] [facility] [address] [facility] [address] [place] [phone] Vascular Surgery 07/09/16 Davin Moran MD [address] [place] [address] 225 [place] [address] Cardiology 08/11/17 Landen Clement MD [address] [place] [address], [address] [address] Endocrinology 10/15/21 Dylan Martinez MD 1 [place] [address] Wound Care 07/16/23 Lyubov Hernandez APRN.PIANO MECHANIC [address] [place], [place] [phone] Educational Program Director Internal Medicine 08/27/24 Motor Home Electrical Foreman Relationship Specialty Start Date End Date Paulina Severino MD [address] [place] [address] PCP - General Family Medicine 08/20/21 Selvin Robin MD [address] [facility] [address] [facility] [address] [place] [address] Vascular Surgery 07/09/16 Davin Moran MD [address] [place] [address] Cardiology 08/11/17 Landen Clement MD [address] [place] [address], [address] [place], [place] [phone] Endocrinology 10/15/21 Dylan Martinez MD 1 [place] [address] Wound Care 07/16/23 Lyubov Hernandez APRN.PIANO MECHANIC [address] [place] [address] Educational Program Director Internal Medicine 08/27/24 Motor Home Electrical Foreman Relationship Specialty Start Date End Date Paulina Severino MD [address] [place] [address] PCP - General Family Medicine 08/20/21 Selvin Robin MD 1 [facility] [address] [place] [phone] Vascular Surgery 07/09/16 aDvin Moran MD [address] [place] [address] Cardiology 08/11/17 Landen Clement MD [address] [place] [address], [facility] [address] [place] [address] Endocrinology 10/15/21 Dylan Martinez MD 1 [place] [address] Wound Care 07/16/23 Lyubov Hernandez APRN.PIANO MECHANIC [address] [place] [address] Educational Program Director Internal Medicine 08/27/24 Motor Home Electrical Foreman Relationship Specialty Start Date End Date Paulina Severino MD [address] [place], [place] [address]451 PCP - General Family Medicine 08/20/21 Selvin Robin MD 1 [facility] [address] [place] [phone] Vascular Surgery 07/09/16 Davin Moran MD [address] [place] [address] 225 [place] [address] Cardiology 08/11/17 Landen Clement MD [address] [place] [address], [facility] [address] [place] [address] Endocrinology 10/15/21 Dylan Martinez MD 1 [place], [place] [phone] Wound Care 07/16/23 Lyubov Hernandez APRN.PIANO MECHANIC [address] [place] [id number] Educational Program Director Internal Medicine 08/27/24 Motor Home Electrical Foreman Relationship Specialty Start Date End Date Paulina Severino MD [address] [place], [place] [phone] PCP - General Family Medicine 08/20/21 Selvin Robin MD 1 [facility] [address] [place] [phone] Vascular Surgery 07/09/16 Davin Moran MD [address] [place] [address] 225 [place], [place] [phone] Cardiology 08/11/17 Landen Clement MD [address] [place] [address], [address] [place], [place] [phone] Endocrinology 10/15/21 Dylan Martinez MD 1 [place], [place] [phone] Wound Care 07/16/23 Lyubov Hernandez APRN.PIANO MECHANIC [address] [place], [place] 186[address] Educational Program Director Internal Medicine 08/27/24 Lizzie Ramirez, SACHI [address] [place] [address] Primary Care Spa Technician 10/09/24 Motor Home Electrical Foreman Relationship Specialty Start Date End Date Paulina Severino MD [address] [place], [place] [phone] PCP - General Family Medicine 08/20/21 Selvin Robin MD 1 [facility] [address] [place] [phone] Vascular Surgery 07/09/16 Davin Moran MD [address] [place] [address] (Fax) Cardiology 08/11/17 Landen Clement MD [address] [place] [address], [facility] [address] [place] [address] Endocrinology 10/15/21 Dylan Martinez MD 1 [place] [address] Wound Care 07/16/23 Lyubov Hernandez APRN.PIANO MECHANIC [address] [place] [address] Educational Program Director Internal Medicine 08/27/24 Loren Wolfe, geotechnical engineering technician Spa Technician 11/05/24 11/17/24 Motor Home Electrical Foreman Relationship Specialty Start Date End Date Paulina Seveirno MD [address] [place] [address] PCP - General Family Medicine 08/20/21 Selvin Robin MD 1 [facility] [address] [place] [address] Vascular Surgery 07/09/16 Davin Moran MD [address] [facility] [address] [place] [address] Cardiology 08/11/17 Landen Clement MD [address] [place] [address], [address] [place] [address] Endocrinology 10/15/21 Dylan Martinez MD 1 [place] [address] Wound Care 07/16/23 Lyubov Hernandez APRN.PIANO MECHANIC [address] [place] [address] Educational Program Director Internal Medicine 08/27/24 Loren Wolfe RN Primary Care Spa Technician 11/05/24 11/17/24 Motor Home Electrical Foreman Relationship Specialty Start Date End Date Paulina Severino MD [address] [place], [place] 598631 PCP - General Family Medicine 08/20/21 Selvin Robin MD 1 [facility] [address] [place] [phone] Vascular Surgery 07/09/16 Davin Moran MD [address] [place] [address]. [address] [place], [place] [address] Cardiology 08/11/17 Landen Clement MD [address] [place] [address], [address] [place], [place] [phone] Endocrinology 10/15/21 Dylan Martinez MD 1 [place] [address] Wound Care 07/16/23 Lyubov Hernandez APRN.PIANO MECHANIC [address] [facility] [place] [address] Educational Program Director Internal Medicine 08/27/24 Loren Wolfe RN Primary Care Spa Technician 11/05/24 11/17/24 Motor Home Electrical Foreman Relationship Specialty Start Date End Date Paulina Severino MD [address] [place], [place] [phone] PCP - General Family Medicine 08/20/21 Selvin Robin MD 1 [facility] [address] [place] [phone] Vascular Surgery 07/09/16 Davin Moran MD [address] [place] [address] [address] [place], [place] [phone] Cardiology 08/11/17 Landen Clement MD [address] [place] [address], [address] [place], [place] [phone] Endocrinology 10/15/21 Dylan Martinez MD 1 [place], [place] [phone] Wound Care 07/16/23 Lyubov Hernandez APRN.PIANO MECHANIC [address] [facility] [place], [place] 596761 Educational Program Director Internal Medicine 08/27/24 Loren Wolfe, geotechnical engineering technician Spa Technician 11/05/24 11/17/24 Motor Home Electrical Foreman Relationship Specialty Start Date End Date Paulina Severino MD [address] [place], [place] [phone] PCP - General Family Medicine 08/20/21 Selvin Robin MD 1 [facility] [address] [place] [phone] Vascular Surgery 07/09/16 Davin Moran MD [address] [place] [address] Cardiology 08/11/17 Landen Clement MD [address] [place] [address], [address] [address] Endocrinology 10/15/21 Dylan Martinez MD [address] [place] [address] Wound Care 07/16/23 Lyubov Hernandez APRN.PIANO MECHANIC [address] [facility] [place] [address] Educational Program Director Internal Medicine 08/27/24 Motor Home Electrical Foreman Relationship Specialty Start Date End Date Paulina Severino MD [address] [place] [address] PCP - General Family Medicine 08/20/21 Selvin Robin MD 1 [facility] [address] [place] [phone] Vascular Surgery 07/09/16 Davin Moran MD [address] [facility] [address] [place] [address] Cardiology 08/11/17 Landen Clement MD [address] [place] [address], [address] [address] Endocrinology 10/15/21 Dylan Martinez MD [address] [place], [place] [phone] Wound Care 07/16/23 Lyubov Hernandez, INEZ.PIANO MECHANIC [address] [place] [address] Educational Program Director Internal Medicine 08/27/24 Motor Home Electrical Foreman Relationship Specialty Start Date End Date Paulina Severino MD [address] [place], [place] [address] PCP - General Family Medicine 08/20/21 Selvin Robin MD 1 [facility] [address] [place] [phone] Vascular Surgery 07/09/16 Davin Morna MD [address] [place] [address] [address] [place], [place] [phone] Cardiology 08/11/17 Landen Clement MD [address] [place] [address], [address] [place] [address] Endocrinology 10/15/21 Dylan [place] MD 1 [place] [address] Wound Care 07/16/23 Lyubov Hernandez, 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PIANO MECHANIC [address] [facility] [place] [address] Educational Program Director Internal Medicine 08/27/24 Motor Home Electrical Foreman Relationship Specialty Start Date End Date Paulina Severino MD [address] [place], [place] 314641 PCP - General Family Medicine 08/20/21 Selvin Robin MD 1 [facility] [address] [place] [phone] Vascular Surgery 07/09/16 Davin Moran MD [address] [place] [address] Cardiology 08/11/17 Landen Clement MD [address] [place] [address], [address] [phone] Endocrinology 10/15/21 Dylan Martinez MD [address] [place], [place] [phone] Wound Care 07/16/23 Lyubov Hernandez APRN.PIANO MECHANIC [address] [facility] [place] [address] Educational Program Director Internal Medicine 08/27/24 Motor Home Electrical Foreman Relationship Specialty Start Date End Date Paulina Severino MD [address] [place] [address] PCP - General Family Medicine 08/20/21 Selvin Robin MD 1 [facility] [address] [place] [phone] Vascular Surgery 07/09/16 Davin [place] MD [address] [place] [address] Cardiology 08/11/17 Landen Clement MD [address] [place] [address], [facility] [address] [place] [address] Endocrinology 10/15/21 Dylan Martinez MD 1 [place] [address] Wound Care 07/16/23 Lyubov Hernandez APRN.PIANO MECHANIC [address] [facility] [address] [place] [address] Educational Program Director Internal Medicine 08/27/24 Motor Home Electrical Foreman Relationship Specialty Start Date End Date Paulina Severino MD [address] [place], [place] 005681 PCP - General Family Medicine 08/20/21 Selvin Robin MD 1 [facility] [address] [place] [phone] Vascular Surgery 07/09/16 Davin Moran MD [address] [place] [address] 225 [place], [place] [phone] Cardiology 08/11/17 Landen Clement MD [address] [place] [address], [address] [place] [address] Endocrinology 10/15/21 Dylan Martinez MD 1 [place] [address] Wound Care 07/16/23 Lyubov Hernandez APRN.PIANO MECHANIC [address] [facility] [place], [place] 336721 Educational Program Director Internal Medicine 08/27/24 Motor Home Electrical Foreman Relationship Specialty Start Date End Date Paulina Severino MD [address] [facility] [place], [place] 901631 PCP - General Family Medicine 08/20/21 Selvin Robin MD [address] [facility] [address] [place] [address] Vascular Surgery 07/09/16 Daivn Moran MD [address] [place] [address] (Fax) Cardiology 08/11/17 Landen Clement MD [address] [place] [address], [address] [place], [place] [phone] Endocrinology 10/15/21 Dylan Martinez MD [address] [place] [address] Wound Care 07/16/23 Lyubov Hernandez APRN.PIANO MECHANIC [address] [facility] [address] [address] Educational Program Director Internal Medicine 08/27/24 Motor Home Electrical Foreman Relationship Specialty Start Date End Date Paulina Severino MD [address] [facility] [address] [place] [address] PCP - General Family Medicine 08/20/21 Selvin Robin MD 1 [facility] [address] [place] [address] Vascular Surgery 07/09/16 Davin [place] MD [address] [place] [address] Cardiology 08/11/17 Landen Clement MD [address] [place] [address], [facility] [address] [place], [place] [phone] Endocrinology 10/15/21 Dylan Martinez MD 1 [place], [place] [phone] Wound Care 07/16/23 Lyubov Hernandez APRN.PIANO MECHANIC [address] [facility] [address] [place], [place] 366561 Educational Program Director Internal Medicine 08/27/24 Angela Cuadra MD Educational Program Director 02/26/25 03/12/25 Motor Home Electrical Foreman Relationship Specialty Start Date End Date Paulina Severino MD [address] [facility] [place], [place] [phone] PCP - General Family Medicine 08/20/21 Selvin Robin MD 1 [facility] [address] [place] [phone] Vascular Surgery 07/09/16 Davin Moran MD [address] [place] [address] 225 [place], [place] [phone] Cardiology 08/11/17 Landen Clement MD [address] [place] [address], [address] [place] [address] Endocrinology 10/15/21 Dylan Martinez MD 1 [place], [place] [phone] Wound Care 07/16/23 Lyubov Hernandez APRN.PIANO MECHANIC [address] [facility] [address] [place] [address] Educational Program Director Internal Medicine 08/27/24 Angela Cuadra MD Educational Program Director 02/26/25 03/12/25 Motor Home Electrical Foreman Relationship Specialty Start Date End Date Paulina Severino MD [address] [facility] [place], [place] [phone] PCP - General Family Medicine 08/20/21 Selvin Robin MD 1 [facility] [address] [place] [phone] Vascular Surgery 07/09/16 Davin Moran MD [address] [place] [address] 225 [place], [place] [phone] Cardiology 08/11/17 Landen Clement MD [address] [place] [address], [address] [place], [place] [phone] Endocrinology 10/15/21 Dylan [place] MD 1 [place], [place] [phone] Wound Care 07/16/23 Lyubov Hernandez APRN.PIANO MECHANIC [address] [facility] [address] [place], [place] 305261 Educational Program Director Internal Medicine 08/27/24 Angela Cuadra MD Educational Program Director 02/26/25 03/12/25 Motor Home Electrical Foreman Relationship Specialty Start Date End Date Paulina Severino MD [address] [facility] [address] [place], [place] [phone] PCP - General Family Medicine 08/20/21 Selvin Robin MD 1 [facility] [address] [place] [phone] Vascular Surgery 07/09/16 Davin Moran MD [address] [facility] [address] [place] [address] (Fax) Cardiology 08/11/17 Landen Clement MD [address] [place] [address], [address] [address] Endocrinology 10/15/21 Dylan Martinez MD [address] [place] [address] Wound Care 07/16/23 Lyubov Hernandez APRN.[employer] [address] [facility] [address] Educational Program Director Internal Medicine 08/27/24 Angela Cuadra MD Educational Program Director 02/26/25 03/12/25 [employer] Relationship Specialty Start Date End Date Paulina Severino MD [address] [facility] [place] [address] PCP - General Family Medicine 08/20/21 Selvin Robin MD 1 [facility] [address] [place] [phone] Vascular Surgery 07/09/16 Davin Moran MD [address] [facility] [address] [place] [address] Cardiology 08/11/17 Landen Clement MD [address] [place] [address], [address] [address] Endocrinology 10/15/21 Dylan Martinez MD 1 [place] [address] Wound Care 07/16/23 Lyubov Hernandez APRN.[employer] MECH[employer] [address] [facility] [address] [place], [place] [address] Educational Program Director Internal Medicine 08/27/24 Angela Cuadra MD Educational Program Director 02/26/25 03/12/25 Motor Home Electrical [employer]man Relationship Specialty Start Date End Date Paulina Severino MD [address] [facility] [address] [place], [place] [id number] PCP - General Family Medicine 08/20/21 Selvin Robin MD 1 [facility] [address] [place] [phone] Vascular Surgery 07/09/16 Davin Moran MD [address] [place] [address] [address] [place], [place] [phone] Cardiology 08/11/17 Landen Clement MD [address] [place] [address], [address] [place] [address] Endocrinology 10/15/21 Dylan Martinez MD 1 [place], [place] [phone] Wound Care 07/16/23 Lyubov Hernandez APRN.[employer] MECH[employer]IC [address] [facility] [address] [place], [place] [phone] Educational Program Director Internal Medicine 08/27/24 Motor [employer] Electrical [employer]man Relationship Specialty Start Date End Date Paulina Severino MD [address] [facility] [place], [place] [phone] PCP - General Family Medicine 08/20/21 Selvin Robin MD [address] [facility] [address] [place] [phone] Vascular Surgery 07/09/16 Davin Moran MD [address] [facility] [address] [place] [address] (Fax) Cardiology 08/11/17 Landen Clement MD [address] [place] [address], [facility] [address] [place], [place] [phone] Endocrinology 10/15/21 Dylan Martinez MD [address] [place] [address] Wound Care 07/16/23 Lyubov Hernandez APRN.[employer]O MECHANIC [address] [facility] [place] [address] Educational Program Director Internal Medicine 08/27/24 Motor Home Electrical Foreman Relationship Specialty Start Date End Date Paulina Severino MD [address] [facility] [place] [address] PCP - General Family Medicine 08/20/21 Selvin Robin MD [address] [facility] [address] [place] [address] Vascular Surgery 07/09/16 Davin Moran MD [address] [facility] [address] [place] [address] Cardiology 08/11/17 Landen Clement MD [address] [place] [address], [address] [phone] Endocrinology 10/15/21 Dylan Martinez MD 1 [place], [place] [phone] Wound Care 07/16/23 Lyubov Hernandez APRN.PIANO MECHANIC [address] [facility] [place] [address] Educational Program Director Internal Medicine 08/27/24 Motor [employer] Electrical Foreman Relationship Specialty Start Date End Date Paulina Severino MD [address] [facility] [address] [place], [place] [address] PCP - General Family Medicine 08/20/21 Selvin Robin MD 1 [facility] [address] [place] [phone] Vascular Surgery 07/09/16 Davin Moran MD [address] [place] [address] [address] [place], [place] [phone] Cardiology 08/11/17 Landen Clement MD [address] [place] [address], [address] [place] [address] Endocrinology 10/15/21 Dylan Martinez MD 1 [place] [address] Wound Care 07/16/23 Lyubov Hernandez APRN.PI[employer]O MECHANIC [address] [facility] [place] [address] Educational Program Director Internal Medicine 08/27/24 Motor Home Electrical Foreman Relationship Specialty Start Date End Date Paulina Severino MD [address] [facility] [place] [address] PCP - General Family Medicine 08/20/21 Selvin Robin MD [address] [facility] [address] [place] [address] Vascular Surgery 07/09/16 Davin Moran MD [address] [facility] [address] [place] [address] Cardiology 08/11/17 Landen Clement MD [address] [place] [address], [address] [place], [place] [phone] Endocrinology 10/15/21 Dylan Martinez MD 1 [place] [address] Wound Care 07/16/23 Lyubov Hernandez APRN.PIANO MECHANIC [address] [facility] [place] [address] Educational Program Director Internal Medicine 08/27/24 Motor Home Electrical Foreman Relationship Specialty Start Date End Date Paulina Severino MD [address] [facility] [place] [address] PCP - General Family Medicine 08/20/21 Selvin Robin MD [address] [facility] [address] [place] [phone] Vascular Surgery 07/09/16 Davin Moran MD [address] [facility] [address] [place] [address] Cardiology 08/11/17 Landen Clement MD [address] [place] [address], [facility] [address] [place] [address] Endocrinology 10/15/21 Dylan Martinez MD [address] [place] [address] Wound Care 07/16/23 Lyubov Hernandez, NIEZ.PIANO MECHANIC [address] [facility] [place] [address] Educational Program Director Internal Medicine 08/27/24 Motor Home Electrical Foreman Relationship Specialty Start Date End Date Paulina Severino MD [address] [facility] [address] [place], [place] [phone] PCP - General Family Medicine 08/20/21 Selvin Robin MD 1 [facility] [address] [place] [phone] Vascular Surgery 07/09/16 Davin Moran MD [address] [place] [address] [facility] [address] [place] [address] Cardiology 08/11/17 Landen Clement MD [address] [place] [address], [facility] [address] [place] [address] Endocrinology 10/15/21 Dylan Martinez MD 1 [place], [place] [phone] Wound Care 07/16/23 Lyubov Hernandez, INEZ.PIANO MECHANIC [address] [facility] [place], [place] [phone] Educational Program Director Internal Medicine 08/27/24 Motor Home Electrical Foreman Relationship Specialty Start Date End Date Paulina Severino MD [address] [facility] [address] [place], [place] [phone] PCP - General Family Medicine 08/20/21 Selvin Robin MD [address] [facility] [address] [place] [phone] Vascular Surgery 07/09/16 Davin Moran MD [address] [facility] [address] [place], [place] [phone] Cardiology 08/11/17 Landen Clement MD [address] [place] [address], [address] [place], [place] [phone] Endocrinology 10/15/21 Dylan Martinez MD 1 [place], [place] [phone] Wound Care 07/16/23 Lyubov Hernandez APRN.PIANO MECHANIC [address] [facility] [place] [address] Educational Program Director Internal Medicine 08/27/24 Motor Home Electrical Foreman Relationship Specialty Start Date End Date Paulina Severino MD [address] [facility] [place] [address] PCP - General Family Medicine 08/20/21 Selvin Robin MD [address] [facility] [address] [place] [address] Vascular Surgery 07/09/16 Davin Moran MD [address] [facility] [address] [place] [address] Cardiology 08/11/17 Landen Clement MD [address] [place] [address], [address] [address] Endocrinology 10/15/21 Dylan Martinez MD [address] [place] [address] Wound Care 07/16/23 Lyubov Hernandez APRN.PIANO MECHANIC [address] [facility] [place], [place] [phone] Educational Program Director Internal Medicine 08/27/24 [employer] Electrical Foreman Relationship Specialty Start Date End Date Paulina Severino MD [address] [facility] [place] [address] PCP - General Family Medicine 08/20/21 Selvin Robin MD 1 [facility] [address] [place] [phone] Vascular Surgery 07/09/16 Davin Moran MD [address] [facility] [address] [place] [address] Cardiology 08/11/17 Landen Clement MD [address] [place] [address], [facility] [address] [place] [address] Endocrinology 10/15/21 Dylan Martinez MD [address] [place] [address] Wound Care 07/16/23 Lyubov Hernandez APRN.PIANO MECHANIC [address] [facility] [place] [address] Educational Program Director Internal Medicine 08/27/24 PRN Active and Recently [...] BE BASED ON THE PRIMARY CLINICAL RECORDS. [employer] [facility]. provides no warranty or guarantee of the accuracy or completeness of information in this document.
[2025-06-03 08:11] LABS: Pro- Brain NATRIURETIC PEPTIDE 4210 pg/mL (<=900)
--- NOTE | 2025-06-03 10:04 | PCM.RX.CS ---
Consult Antibiotic Management Pharmacy has been consulted to manage selected antibiotic: Vancomycin Type of Intervention Type of Consult: New start Suspected Infection Suspected Infection: Sepsis Labs Labs: Sodium 138 mmol/L (133-145) 06/03/25 02:07 Potassium 4.1 mmol/L (3.3-5.1) 06/03/25 02:07 Chloride 101 mmol/L (98-108) 06/03/25 02:07 Carbon Dioxide 23.8 mmol/L (21.0-32.0) 06/03/25 02:07 Anion Gap 14 (5-15) 06/03/25 02:07 BUN 24 mg/dL (4-19) H 06/03/25 02:07 Creatinine 1.18 mg/dL (0.70-1.20) 06/03/25 02:07 Est GFR (MDRD) Non-Af 65 (>60) 06/03/25 02:07 BUN/Creatinine Ratio 20.3 RATIO (10-20) H 06/03/25 02:07 Glucose 208 mg/dL (70-99) H 06/03/25 02:07 Pharmacy Plan for Drug Dosing Pharmacy Plan for Drug Dosing: NEW START IV VANCOMYCIN Consulting Physician: Narendra Indication: sepsis/wound infection Goal Trough: 15-20 mg/dL SrCr: 1.18 mg/dL CrCl: 45 mL/min Comments: loading dose of 1750mg given in ER 06/03/25 @ 0304 Vancomycin Dose: Will start 500mg Q12 stating 06/03 @ 1500 and get a trough prior to 4th total dose per policy. Pending Level: 06/04/25 @ 1430 Pharmacy Service will continue to monitor and adjust dosing as required.
--- NOTE | 2025-06-03 10:16 | ECHOCS_ITS ---
Reason For Study Reason For Study: Chest pain Procedure This was a 2D Doppler, Color Flow transthoracic echocardiogram. The study was technically difficult. Exam performed portable in ICU/CCU. Left Ventricle Normal LV size. Mild concentric left ventricular hypertrophy. Posterior hypokinesis. Stage 2 diastolic dysfunction. The left ventricular ejection fraction is 45 %. Right Ventricle Normal RV size. Normal systolic function. Atria The left and right atria are normal. Mitral Valve The mitral valve is structurally normal. No prolapse or stenosis seen. Mild- Moderate (1-2+) mitral valve insufficiency. Tricuspid Valve Normal tricuspid valve. Trivial tricuspid valve insufficiency. Unable to estimate RV systolic pressure due to insufficient tricuspid regurgitant envelope. Aortic Valve Trisinus/trileaflet aortic valve. Mild focal aortic valve thickening. There is no aortic stenosis. Pulmonic Valve Normal pulmonic valve. Trivial pulmonic valve insufficiency. Great Vessels Normal sized aortic root. Pericardium/Pleural Trivial pericardial effusion. Medication Diluted definity 3.0ml given slow IV push to enhance endocardial definition. MMode/2D Measurements & Calculations LVIDd: 4.5 cm IVSd: 1.3 cm LVOT diam: 2.0 cm LVIDs: 3.2 cm LVPWd: 1.1 cm RVDd: 3.9 cm FS: 28.5 % LVOT area: 3.0 cm2 asc Aorta Diam: 3.2 cm LAV(MOD-bp): 45.1 ml LVAd ap4: 36.6 cm2 LAV(MOD-bp) Indexed: 34.2 ml/m2 LVLd ap4: 8.3 cm LAV(MOD-sp2): 53.8 ml EDV(MOD-sp4): 135.9 ml LAV(MOD-sp4): 36.4 ml EDV(sp4-el): 137.1 ml LVAs ap4: 26.2 cm2 LVLs ap4: 7.5 cm ESV(MOD-sp4): 79.7 ml ESV(sp4-el): 77.9 ml EF(MOD-sp4): 41.4 % EF(sp4-el): 43.2 % LVAd ap2: 36.1 cm2 SV(MOD-sp4): 56.2 ml SV(MOD-sp2): 65.1 ml LVLd ap2: 8.4 cm SI(MOD-sp4): 42.5 ml/m2 SI(MOD-sp2): 49.3 ml/m2 EDV(MOD-sp2): 127.7 ml EDV(sp2-el): 131.6 ml LVAs ap2: 23.0 cm2 LVLs ap2: 7.2 cm ESV(MOD-sp2): 62.6 ml ESV(sp2-el): 62.6 ml EF(MOD-sp2): 51.0 % SV(sp4-el): 59.2 ml LA dimension(2D): 4.0 cm LA A4 area: 14.5 cm2 RA A4 area: 12.0 cm2 TAPSE: 1.5 cm Time Measurements MV dec time: 0.13 sec Doppler Measurements & Calculations MV E max christiano: 117.8 cm/sec Lat Peak E' Christiano: 8.0 cm/sec Med Peak E' Christiano: 8.1 cm/sec MV A max christiano: 96.8 cm/sec E/E' lat: 14.7 E/E' med: 14.5 MV E/A: 1.2 Ao V2 max: 92.0 cm/sec LV V1 max: 82.1 cm/sec MV dec slope: 889.6 cm/sec2 Ao max P.4 mmHg LV V1 max P.7 mmHg Ao V2 mean: 64.2 cm/sec LV V1 mean P.6 mmHg Ao mean P.8 mmHg LV V1 mean: 60.7 cm/sec Ao V2 VTI: 18.9 cm LV V1 VTI: 17.0 cm AV (velocity ratio): 0.90 JUVENTINO(I,D): 2.7 cm2 JUVENTINO(V,D): 2.7 cm2 SV(LVOT): 51.7 ml PA V2 max: 89.1 cm/sec ECHO/Echo Complete W/ Contrast Interpretation Summary The left ventricular ejection fraction is 45 %. Mild concentric left ventricula r hypertrophy.Posterior hypokinesis. Stage 2 diastolic dysfunction. Mild-Moderate (1-2+) mitral valve insufficiency. The study was technically difficult. Contrast injection was performed. Ordering Physician: Silvina Mackey Referring Physician: Claudette Samano Performed By: Jennifer Tucker RDCS
--- NOTE | 2025-06-03 10:28 | EKG12_ITS ---
Test Reason : CP Blood Pressure : */* mmHG Vent. Rate : 102 BPM Atrial Rate : 102 BPM P-R Int : 184 ms QRS Dur : 100 ms QT Int : 348 ms P-R-T Axes : 58 84 248 degrees QTcB Int : 453 ms Sinus tachycardia Cannot rule out Inferior infarct , age undetermined Marked ST abnormality, possible anterolateral subendocardial injury Abnormal ECG When compared with ECG of 03-Jun-2025 02:34, MANUAL COMPARISON REQUIRED DATA IS UNCONFIRMED Confirmed by Mikal Rasheed ([id number]), image editor HUE SAWYER ([id number]) on 06/04/2025 1:28:27 PM Referred By: THOMAS Confirmed By: Mikal Rasheed
[2025-06-03] MEDS: Nitroglycerin (INPATIENT USE) 0.4 MG TAB.SUBL SL ×2 (10:43→10:59)
[2025-06-03] MEDS: Nitroglycerin Infusion 250 ML 3 MG CONT INF (11:03)
--- NOTE | 2025-06-03 11:16 | EKG12_ITS ---
Test Reason : CP Blood Pressure : */* mmHG Vent. Rate : 95 BPM Atrial Rate : 95 BPM P-R Int : 182 ms QRS Dur : 102 ms QT Int : 362 ms P-R-T Axes : 56 81 50 degrees QTcB Int : 454 ms Normal sinus rhythm Marked ST abnormality, possible inferior subendocardial injury Abnormal ECG When compared with ECG of 03-Jun-2025 10:36, MANUAL COMPARISON REQUIRED DATA IS UNCONFIRMED Confirmed by Mikal Rasheed ([id number]), editorial writer HUE SAWYER ([id number]) on 06/04/2025 1:28:18 PM Referred By: THOMAS Confirmed By: Mikal Rasheed
--- NOTE | 2025-06-03 11:17 | NURSING ---
medical records requested from [facility]
[2025-06-03 11:25] LABS: Hematocrit 25.3 % (40-54); Hemoglobin 7.8 g/dL (13.0-16.5); Immature Granulocytes Count 0.090 X10^3/uL (0.0-0.0); Mean Corp Hgb Conc 30.8 g/dL (32-36); Mean Corpuscular Volume 85.2 fL (80-94); Mean Platelet Vol. 9.1 fl (6.2-12.0); NRBC Flagged by Analyzer 0 % (0-5); Platelet Count 378 K/mm3 (150-450); RBC Distribution Width CV 16.0 % (11.6-14.6); RBC Distribution Width SD 50.4 fl (35.1-43.9); Red Blood Count 2.97 M/mm3 (4.6-6.2); White Blood Count 12.8 K/mm3 (4.4-11.0)
[2025-06-03] MEDS: Heparin Injection (Vial) 5,000 UNIT/ML VIAL 4000 UNIT IV (11:33)
[2025-06-03] MEDS: HEPARIN/D5w 25,000 UNITS 25,000 UNITS/250 ML IV.SOLN. 7.9 UNITS CONT INF (11:34)
[2025-06-03 11:37] LABS: Prothrombin Time (Protime)PT. 15.0 SECONDS (11.7-14.9)
[2025-06-03 11:38] LABS: Partial Thromboplast Time 31.3 Seconds (24.1-36.2)
--- NOTE | 2025-06-03 11:47 | NURSING ---
1140 cp all but gone now and pt says just a little in my upper pack between shoulder blades. rates 2/10 repeat ekg done and sent to dr. hernandez. heparin up and running with bolus. vs stable and nitro continues at 10mcg.
--- NOTE | 2025-06-03 12:59 | PCM.CONS.C ---
Assessment & Plan Assessment/Plan (1) Unstable angina: PLAN: Continue with Aspirin 81 mg daily Continue with Clopidogrel 75 mg daily Continue with IV heparin and IV nitro drip Continue with Coreg 6.25 mg BID Keep NPO for cath tomorrow morning He had history of PCI in the past year at [facility] Obtain an echocardiogram (2) Sacral pressure ulcer: PLAN: Treatment Per primary HPI Consult Data Date of Consult: 06/03/25 HPI Narrative HPI Narrative: 74-year-old male with a PMH of : # Chronic respiratory failure on 2 liters oxygen # PAD with bilateral AKA # Type 2 Diabetes # Hyperlipidemia # Pressure ulcer of the sacral region presented to the emergency department for concern of sacral wound infection. Patient states that this evening he developed a fever at his facility of 102.7. States he is on Tylenol every 6 hours. He reports he was having sweats and chills as well. States he felt fine yesterday. Is concerned that his sacral wound is infected. He does report he has been having chest pain on exertion and at rest. Denies any shortness of breath more than baseline. States that he normally wears 2 L nasal cannula but he was 88% on this so EMS bumped him up to 4 L nasal cannula. Denies any abdominal pain, nausea, vomiting, diarrhea. His EKG showed ST elevation in AVR and diffuse ST depression. His chest pain improved from 10/10 to 1/10 with nitro. He had 2 Stents in the past year at [facility]. [facility] Medical History CAD (coronary artery disease) Chronic pain BPH with urinary obstruction GERD (gastroesophageal reflux disease) Diabetic neuropathy Morbid obesity Hyperlipidemia Essential hypertension Chronic anemia CHF (congestive heart failure) Anxiety Depression Above knee amputation of left lower extremity Above knee amputation of right lower extremity PVD (peripheral vascular disease) Diabetes Home Medications ?Medication ?Instructions ?Recorded ?Last Taken ?Type acetaminophen 325 mg capsule 650 mg PO Q4H PRN fever or pain 06/03/25 Unknown History acetaminophen 500 mg capsule 1,000 mg PO Q6H PRN fever or pain 06/03/25 Unknown History acetaminophen 650 mg rectal 650 mg [place] Q4H PRN fever or pain 06/03/25 Unknown History suppository aluminum-mag hydroxide-simethicone 30 ml PO Q4H PRN indigestion 06/03/25 Unknown History 200 mg-200 mg-20 mg/5 mL oral susp (Antacid Plus Anti-Gas) amlodipine 10 mg tablet 10 mg PO DAILY 06/03/25 Unknown History ascorbic acid (vitamin C) 500 mg 500 mg PO DAILY 06/03/25 Unknown History capsule aspirin 81 mg tablet 81 mg PO DAILY 06/03/25 Unknown History bisacodyl 10 mg rectal suppository 10 mg [place] DAILY PRN constipation 06/03/25 Unknown History buspirone 5 mg tablet 5 mg PO BID 06/03/25 Unknown History calcium carbonate (Antacid Ultra 430 mg PO TID PRN dyspepsia 06/03/25 Unknown History Strength) carvedilol 6.25 mg tablet 6.25 mg PO BID 06/03/25 Unknown History cetirizine 10 mg tablet 10 mg PO DAILY 06/03/25 Unknown History clopidogrel 75 mg tablet 75 mg PO DAILY 06/03/25 Unknown History dextrose 40 % oral gel (Glucose 20 g PO Q15M PRN hypoglycemia 06/03/25 Unknown History Gel) escitalopram oxalate 10 mg tablet 10 mg PO DAILY 06/03/25 Unknown History furosemide 40 mg tablet (Lasix) 40 mg PO DAILY 06/03/25 Unknown History gabapentin 300 mg capsule 300 mg PO QHS 06/03/25 Unknown History glucagon 1 mg injection kit 1 mg IM .q15min PRN hypoglycemia 06/03/25 Unknown History guaifenesin 100 mg/5 mL oral 200 mg PO Q4H PRN cough 06/03/25 Unknown History liquid (Cough Syrup) hydralazine 25 mg tablet 75 mg PO TID 06/03/25 Unknown History insulin glargine 100 unit/mL (3 20 unit subcut QPM 06/03/25 Unknown History mL) subcutaneous pen (Lantus Solostar U-100 Insulin) insulin lispro 100 unit/mL 14 unit subcut ACHS 06/03/25 Unknown History subcutaneous pen (Humalog KwikPen (U-100) Insulin) insulin lispro 100 unit/mL See Protocol subcut TID 06/03/25 Unknown History subcutaneous pen (Humalog KwikPen (U-100) Insulin) isosorbide dinitrate 40 mg tablet 40 mg PO TID 06/03/25 Unknown History magnesium hydroxide 400 mg/5 mL 30 ml PO DAILY PRN constipation 06/03/25 Unknown History oral suspension (Milk of Magnesia) methocarbamol 500 mg tablet 500 mg PO QHS 06/03/25 Unknown History multivit,tx with iron 27 1 tab PO DAILY 06/03/25 Unknown History fk-rjivqar-kzrty acid 0.4 mg-minerals tablet (Thera-M) pantoprazole 40 mg tablet,delayed 40 mg PO DAILY 06/03/25 Unknown History release (Protonix) rivaroxaban 2.5 mg tablet 2.5 mg PO BID 06/03/25 Unknown History sennosides 8.6 mg tablet (senna) 8.6 mg PO BID 06/03/25 Unknown History sodium chloride 0.65 % nasal spray 1 spray intranasal BID 06/03/25 Unknown History aerosol (Nasal [place] (sodium chloride)) tamsulosin 0.4 mg capsule 0.4 mg PO QHS 06/03/25 Unknown History tramadol 50 mg tablet 50 mg PO BID 06/03/25 Unknown History Allergy/AdvReac Type Severity Reaction Status Date / Time atorvastatin Allergy Unknown unknown Verified 06/03/25 01:50 levofloxacin Allergy Unknown unknown Verified 06/03/25 01:50 metformin AdvReac Diarrhea Verified 06/03/25 01:50 Surgical History H/O heart artery stent S/P AKA (above knee amputation) bilateral Social History Smoking Status: Former smoker ROS Constitutional Constitutional: Reports systems reviewed and no addt'l complaints, except as documented Eyes Eyes: Reports systems reviewed and no addt'l complaints, except as documented ENT HEENT: Reports systems reviewed and no addt'l complaints, except as documented Cardiovascular Cardiovascular: Reports systems reviewed and no addt'l complaints, except as documented, chest pain and chest pain at rest Respiratory/Chest Respiratory/Chest: Reports systems reviewed and no addt'l complaints, except as documented Gastrointestinal Gastrointestinal: Reports systems reviewed and no addt'l complaints, except as documented Genitourinary Genitourinary: Reports systems reviewed and no addt'l complaints, except as documented Musculoskeletal Musculoskeletal: Reports systems reviewed and no addt'l complaints, except as documented Integumentary Integumentary: Reports systems reviewed and no addt'l complaints, except as documented Neurologic Neurologic: Reports systems reviewed and no addt'l complaints, except as documented Psychiatric Psychiatric: Reports systems reviewed and no addt'l complaints, except as documented Endocrine Endocrinology: Reports systems reviewed and no addt'l complaints, except as documented Hematologic/Lymphatic Hematologic/Lymphatic: Reports systems reviewed and no addt'l complaints, except as documented Allergic/Immunologic Allergic/Immunologic: Reports systems reviewed and no addt'l complaints, except as documented Physical Exam Const alert HEENT normocephalic Eyes PERRL Neck full ROM Chest inspection of chest normal Resp normal respiratory effort Cardio regular rate and regular rhythm GI normal to inspection, nondistended, normoactive bowel sounds no CVA tenderness Back/Spine no CVA tenderness Extremity normal to inspection Skin no rashes or lesions noted Psych mental status grossly normal Objective Data Vital Signs: Vital Signs Temp Pulse Resp BP Pulse Ox O2 Del Method O2 Flow Rate 98.5 F 98 18 136/60 H 96 Nasal Cannula 5 06/03/25 09:34 06/03/25 11:03 06/03/25 10:00 06/03/25 11:38 06/03/25 10:00 06/03/25 10:00 06/03/25 10:00 Oxygen Flow Rate (L/min) 5 Oxygen Delivery Method Nasal Cannula Weight: 145 lb 8.081 oz Body Mass Index (BMI) 50.5 Intake & Output: Intake and Output for Last 24 Hours 06/01/25 06/02/25 06/03/25 23:59 23:59 23:59 Intake Total 1138.0 / 1138.0 Balance 1138.0 / 1138.0 Lab / Micro Data 06/03/25 11:17 06/03/25 02:07 Labs: Laboratory Results - last 24 hr 06/03/25 02:07: WBC 13.8 H, RBC 2.83 L, Hgb 7.4 L, Hct 23.9 L, MCV 84.5, MCH 26.1 L, MCHC 31.0 L, RDW Std Deviation 48.9 H, RDW Coeff of Abby 15.9 H, Plt Count 379, MPV 9.1, Immature Gran % (Auto) 1.000 H, Neut % (Auto) 82.0 H, Lymph % (Auto) 6.5 L, [place] % (Auto) 8.1, Eos % (Auto) 1.8, Baso % (Auto) 0.6, Absolute Neuts (auto) 11.3 H, Absolute Lymphs (auto) 0.90, Nucleated RBC % 0, Sodium 138, Potassium 4.1, Chloride 101, Carbon Dioxide 23.8, Anion Gap 14, BUN 24 H, Creatinine 1.18, Estim Creat Clear Calc 45.20 L, Est GFR (MDRD) Non-Af 65, BUN/Creatinine Ratio 20.3 H, Glucose 208 H, Lactic Acid 2.3 H*, Calcium 8.8, Total Bilirubin 0.16, AST 14, ALT 7, Alkaline Phosphatase 86, Troponin T High Sens 119 H*, Total Protein 6.5, Albumin 3.1 L, Globulin 3.4, Albumin/Globulin Ratio 0.9 06/03/25 03:02: Urine Color Yellow, Urine Clarity Clear, Urine pH 6.0, Ur Specific [place] 1.020, Urine Protein 30 H, Urine Glucose (UA) Normal, Urine Ketones Negative, Urine Occult Blood 10 H, Urine Nitrite Negative, Urine Bilirubin Negative, Urine Urobilinogen Normal, Ur Leukocyte Esterase 500 H, Urine RBC 0 SEEN, Urine WBC 10-25 SEEN, Ur Squamous Epith Cells 0 SEEN, Urine Bacteria RARE, Urine Mucus 0 SEEN 06/03/25 04:11: Troponin T Hi Sens 2 Hr 113 H*, NT pro BNP II 4210 H 06/03/25 06:40: Lactic Acid 1.4 06/03/25 11:17: WBC 12.8 H, RBC 2.97 L, Hgb 7.8 L, Hct 25.3 L, MCV 85.2, MCH 26.3 L, MCHC 30.8 L, RDW Std Deviation 50.4 H, RDW Coeff of Abby 16.0 H, Plt Count 378, MPV 9.1, Immature Gran % (Auto) 0.700, Neut % (Auto) 82.5 H, Lymph % (Auto) 6.7 L, Glades % (Auto) 8.5, Eos % (Auto) 1.1, Baso % (Auto) 0.5, Absolute Neuts (auto) 10.6 H, Absolute Lymphs (auto) 0.86, Nucleated RBC % 0, PT 15.0 H 06/03/25 11:17: PT Cancelled, INR 1.2 06/03/25 11:17: INR Cancelled, APTT 31.3 06/03/25 11:17: APTT Cancelled 06/03/25 12:06: POC Glucose 182 H Micro: Microbiology 06/03/25 11:40 Urine, Clean Catch Legionella Antigen - Final 06/03/25 11:40 Urine, Clean Catch Streptococcus pneumoniae Antigen (M - Final 06/03/25 09:40 Mucosa - Nasopharyngeal Coronavirus COVID-19 PCR - Final Cardiology Labs/Tests 06/03/25 02:07: WBC 13.8 H, RBC 2.83 L, Hgb 7.4 L, Hct 23.9 L, MCV 84.5, MCH 26.1 L, MCHC 31.0 L, Plt Count 379, MPV 9.1, Immature Gran % (Auto) 1.000 H, Neut % (Auto) 82.0 H, Lymph % (Auto) 6.5 L, Glades % (Auto) 8.1, Eos % (Auto) 1.8, Baso % (Auto) 0.6, Absolute Neuts (auto) 11.3 H, Nucleated RBC % 0, Sodium 138, Potassium 4.1, Chloride 101, Carbon Dioxide 23.8, Anion Gap 14, BUN 24 H, Creatinine 1.18, Est GFR (MDRD) Non-Af 65, BUN/Creatinine Ratio 20.3 H, Glucose 208 H, Lactic Acid 2.3 H*, Calcium 8.8, Total Bilirubin 0.16 06/03/25 03:02: Urine Color Yellow, Urine Clarity Clear, Urine pH 6.0, Ur Specific [place] 1.020, Urine Protein 30 H, Urine Glucose (UA) Normal, Urine Ketones Negative, Urine Occult Blood 10 H, Urine Nitrite Negative, Urine Bilirubin Negative, Urine Urobilinogen Normal, Ur Leukocyte Esterase 500 H, Urine RBC 0 SEEN, Urine WBC 10-25 SEEN 06/03/25 06:40: Lactic Acid 1.4 06/03/25 11:17: WBC 12.8 H, RBC 2.97 L, Hgb 7.8 L, Hct 25.3 L, MCV 85.2, MCH 26.3 L, MCHC 30.8 L, Plt Count 378, MPV 9.1, Immature Gran % (Auto) 0.700, Neut % (Auto) 82.5 H, Lymph % (Auto) 6.7 L, Glades % (Auto) 8.5, Eos % (Auto) 1.1, Baso % (Auto) 0.5, Absolute Neuts (auto) 10.6 H, Nucleated RBC % 0, PT 15.0 H 06/03/25 11:17: PT Cancelled, INR 1.2 06/03/25 11:17: INR Cancelled, APTT 31.3 06/03/25 11:17: APTT Cancelled Rhythm: NSR EKG: NSR with ST depression in inferolateral ECHO: n/a Radiography Diagnostic Testing: Radiology Impression Lumbar Spine CT 06/03/25 02:00 IMPRESSION: Degenerative changes lower lumbar spine. Vascular disease. Right sided decubitus ulcer without underlying osteomyelitis. Reading Location: [facility] Chest CTA 06/03/25 02:11 IMPRESSION: Emphysema. Small bilateral pleural effusions. Mild patchy airspace in the lungs, pulmonary edema versus pneumonia. Negative for pulmonary embolus. Reading Location: [facility] [place] Risk Score for UA/STEMI Assesmment (YES = 1) Risk Stratification Applicable: Yes Age > or = 65: Yes > or = 3 CAD risk factors (HTN, Hypercholesterolemia, Diabetes, family hx, current smoker): Yes Known CAD (Stenosis > or = 50%): Yes ASA used in past 7 days: Yes Severe angina (> or = 2 episodes in 24 hrs): Yes EKG ST change > or = 0.5mm: Yes Positive cardiac markers: Yes Score [place] Risk Score of mortality/ recurrent ischemic event over the next 14 days: 6-7 = 40.9% - HIGH RISK
[2025-06-03] MEDS: DAKIN'S SOL HALF STRENGTH (=0.25%) TOPICAL ×2 (14:55→21:12)
[2025-06-03] MEDS: Piperacil/Tazobactam 3.375 GM in 0.9% Normal Saline (50mL MB+) 50 ML IV ×2 (15:07→21:08)
--- NOTE | 2025-06-03 15:18 | EKG12_ITS ---
Test Reason : CP Blood Pressure : */* mmHG Vent. Rate : 96 BPM Atrial Rate : 96 BPM P-R Int : 180 ms QRS Dur : 98 ms QT Int : 360 ms P-R-T Axes : 67 80 42 degrees QTcB Int : 454 ms Normal sinus rhythm Marked ST abnormality, possible inferior subendocardial injury Abnormal ECG When compared with ECG of 03-Jun-2025 11:22, MANUAL COMPARISON REQUIRED DATA IS UNCONFIRMED Confirmed by Mikal Rasheed ([id number]), editorial manager HUE SAWYER ([id number]) on 06/04/2025 1:28:07 PM Referred By: Confirmed By: Mikal Rasheed
--- NOTE | 2025-06-03 16:19 | PCM.HOSP.N ---
Hospitalist Note Patient having recurrent chest pain with ST depression in inferolateral leads and this has been ongoing intermittently and unstable. Cath team was called to perform LHC..
--- NOTE | 2025-06-03 17:10 | PCIREPORT_ITS ---
PCI Cardiac Cath Report PCI Report: DATE OF PROCEDURE: 06/04/2025 PROCEDURES PERFORMED: 1. Selective left and right coronary angiography. 2. Moderate conscious sedation Indications FOR PROCEDURE: NSTEMI Complications: NONE Specimen: NONE Access: Right Radial Artery Hemostasis: TR band DESCRIPTION OF PROCEDURE: After informed consent was obtained, the patient was brought down to the grass farm laborer in a fasting state. Right wrist area was prepped, draped and sterilized in the usual fashion. Moderate conscious sedation, administration, documentation and physiologic monitoring of the IV conscious sedation was performed under my direct supervision by a trained registered nurse. Using modified Seldinger technique, right radial artery was then cannulated. A 6-Fijian sheath was inserted, sheath was flushed. 5F JR4 catheter was used to engage the right coronary and 5f JL-3.5 catheter was used to engage Left coronary artery. Multiple orthogonal images were then taken. Aortic valve was crossed After reviewing angiogram, Wire and catheter were taken out. TR band was applied. The patient was sent to floor in stable condition. HEMODYNAMICS: LVEDP 15 DESCRIPTION OF CORONARY ANATOMY: The left main originates from the left coronary sinus of Valsalva in the usual fashion. There was good reflux of dye from this vessel into the coronary sinus, there was no ventriculization or dampening of pressure noted. The LM bifurcates into LAD and LCX . It has 50% distal stenosis. The left anterior descending artery originates from the left main in the usual fashion. It runs in the anterior interventricular groove giving rise to large size diagonal branch and multiple septal perforators and continues distally to wrap around the apex. There is 40% significant epicardial coronary artery disease involving the system. Left circumflex artery originates from the bifurcation in the usual fashion, then courses its way down the lateral atrioventricular groove, giving rise to 2 small-sized OM branches. Om1 has 80% stenosis in a small vessel artery. RCA originates from the right coronary sinus of Valsalva in the usual fashion, There was good reflux if dye from this vessel into the coronary sinus, there was no ventriculization or dampening of pressure noted. It then courses its way down the lateral atrioventricular groove, giving rise to acute marginal branch and continues distally supply right PDA,y. There was no significant epicardial coronary artery disease involving the system. Stents are patent. CONCLUSION: 1. 50% distal left main Recommendations: NSTEMI is in the setting of anemia Obtain cath films from [facility] to compare them with the current cath films. If he is having recurrent chest pain episodes. Recommend transferring him to [facility]. Start patient on aspirin and high intensity statin. Transfuse to Hgb goal of 8
[2025-06-03] MEDS: Vancomycin HCl 500 MG in 0.9% Normal Saline (100mL Bag) 100 ML 100 MG IV (17:45)
[2025-06-03 18:05] LABS: Partial Thromboplast Time 58.4 Seconds (24.1-36.2)
--- NOTE | 2025-06-03 20:00 | NURSING ---
Patient transferred to ICU-report given
[2025-06-03] MEDS: Sodium Chloride 0.65% 1 SPRAY SPRAY.BTL NASAL (21:04)
[2025-06-03] MEDS: Insulin Glargine-YFGN 100 UNIT/ML Pen 20 UNIT SC (21:07)
[2025-06-03] MEDS: Senna Tablet 1 TABLET PO (21:09)
[2025-06-03] MEDS: 0.9% Saline Lock 10 ML Syringe IV (21:35)
[2025-06-04] VITALS (43 sets, daily range): BP systolic 113–140; BP diastolic 46–87; PULSE 79–107; RESP 12–212; TEMP 36.5–36.9; O2SAT 81–98; BMI 51.9
[2025-06-04 00:06] LABS: Partial Thromboplast Time 53.4 Seconds (24.1-36.2)
[2025-06-04 00:56] LABS: Hemoglobin 7.5 g/dL (13.0-16.5)
[2025-06-04] MEDS: Nitroglycerin Infusion 250 ML 21 MG CONT INF (01:48)
[2025-06-04] MEDS: 0.9% Saline Lock 10 ML Syringe IV ×5 (01:52→22:02)
--- NOTE | 2025-06-04 02:06 | NURSING ---
pt bladder scanned d/t no UO after 40mg of IV lasix. Bladder scanned for >770cc. Educated pt on need to get urine out of bladder, discussed straight cath. Pt requested to wait until 0300 to attempt to pee until straight cath attempted. Will continue to monitor and re-evaluate at 0300
[2025-06-04] MEDS: Vancomycin HCl 500 MG in 0.9% Normal Saline (100mL Bag) 100 ML 100 MG IV (02:36)
[2025-06-04 05:05] LABS: Hematocrit 26.4 % (40-54); Hemoglobin 8.7 g/dL (13.0-16.5); Immature Granulocytes Count 0.110 X10^3/uL (0.0-0.0); Mean Corp Hgb Conc 33.0 g/dL (32-36); Mean Corpuscular Volume 82.2 fL (80-94); Mean Platelet Vol. 9.3 fl (6.2-12.0); NRBC Flagged by Analyzer 0 % (0-5); Platelet Count 305 K/mm3 (150-450); RBC Distribution Width CV 15.5 % (11.6-14.6); RBC Distribution Width SD 46.9 fl (35.1-43.9); Red Blood Count 3.21 M/mm3 (4.6-6.2); White Blood Count 12.9 K/mm3 (4.4-11.0)
[2025-06-04] MEDS: Piperacil/Tazobactam 3.375 GM in 0.9% Normal Saline (50mL MB+) 50 ML IV ×3 (05:20→21:37)
[2025-06-04 05:45] LABS: Magnesium 1.8 mg/dL (1.5-2.2)
[2025-06-04 05:56] LABS: AST(SGOT) 19 U/L (<=37); Alanine Aminotransfer ALT/SGPT 7 U/L (<=46); Albumin, Serum 3.1 g/dL (3.4-4.8); Alkaline Phosphatase 78 U/L (40-129); Anion Gap 13 (5-15); BUN 25 mg/dL (4-19); BUN/Creat Ratio 20.1 RATIO (10-20); Calcium,Total 8.9 mg/dL (7.6-11.0); Carbon Dioxide 23.3 mmol/L (21.0-32.0); Chloride 101 mmol/L (98-108); Estimated Creatinine Clearance 43.57 ml/min (50-250); Globulin 3.3 g/dL (2.2-4.2); Glucose 121 mg/dL (70-99); Potassium 3.9 mmol/L (3.3-5.1)
[2025-06-04 06:29] LABS: Partial Thromboplast Time 55.8 Seconds (24.1-36.2)
[2025-06-04] MEDS: Juven (unflavored) Packet 2 PACKET PO ×2 (09:20→16:41)
[2025-06-04] MEDS: Senna Tablet 1 TABLET PO (09:23)
[2025-06-04] MEDS: Sodium Chloride 0.65% 1 SPRAY SPRAY.BTL NASAL ×2 (09:23→21:36)
[2025-06-04] MEDS: Zinc Sulfate 50 mg zinc (220 mg) ORAL capsule PO ×3 (09:24→16:41)
[2025-06-04] MEDS: DAKIN'S SOL HALF STRENGTH (=0.25%) TOPICAL ×2 (09:34→22:02)
--- NOTE | 2025-06-04 09:38 | EX.PCM.CON.S ---
Assessment & Plan Assessment/Plan (1) Sacral pressure ulcer: PLAN: I have been consulted in conjunction with Dr. Singer. He has independently evaluated this patient. Patient is a 74 y/o M who presented with a fever and chills associated with sacral ulcer. Patient was unaware that he had a sacral ulcer. He had cultures obtained yesterday on 06/03 which demonstrated Staph Aureus and negative for MRSA. Continue current Iv antibiotics. No surgical intervention planned for today. we will plan to have Sandra, wound nurse, evaluate patient tomorrow and determine if patient would benefit from debridement versus continued Dakins wet to dry dressing changes versus possible wound vac placement. Patient is also continuing to have a cardiac work-up and would be at higher risk for an OR procedure at this time. If patient would need to go to the OR, we would need cardiac clearance to proceed. Patient is also on multiple anti-coagulants currently which may need to be held for the procedure. We will continue to monitor this patient and re-evaluate tomorrow to develop a more detailed plan. Recommend continued wet to dry dressing changes with Dakins twice a day. Thank you for allowing us to participate in this patient's care. HPI Consult Data Date of Consult: 06/04/25 HPI Narrative Reason for Consultation: Sacral pressure ulcer HPI Narrative: ANTOLIN HATHAWAY, is a 74 M who presents with a sacral wound infection. 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 He is unsure how long he has had this sacral wound. He notes feeling feverish and chilled over the last 2 days. He notes discomfort in the central part portion of the open wound. He was unaware that he had an open wound there. Patient has also had an extensive cardiac work-up during this admission which entailed a cardiac cath yesterday with no intervention. Patient's previous history per medicine, Dr. Mackey includes the following: ANTOLIN HATHAWAY, is a 74 M who presented to the emergency department at [facility] on 06/03/2025 due to fever and chills. Patient had a stump revision of his right lower extremity. 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 He recently had a vision of his right stump at [facility] and it sounds like he had a complicated postop hospital course involving an ICU stay and intubation with pneumonia. He developed a sacral pressure ulcer and from his history of sounds that he may have gone to an LTAC temporarily and then ended up at [facility]. He lives in [place] and intends to get back to independent living as soon as possible. He stated that at the facility at which she has been staying they were concerned that his ulcer was getting infected and had him on antibiotics. He was developing fevers and increased drainage from the wound. On further questioning he was having intermittent chest discomfort that he stated was more like indigestion. He stated he took Tums and that helped but they also gave him nitroglycerin he thought that helped the most. He does have known coronary disease and stated that he follows with Dr. Moran at [facility] at baseline. It sounds as if he had a cardiac catheterization with stent placement earlier this year in the spring but he cannot remember the exact date. We have requested records but they are pending at this time. He was found to be hypoxic and short of breath in the emergency department eventually this was chalked up to a pneumonia however troponin were elevated and his BNP was high. I suspect that his infection is related to his wound and his chest discomfort may be related to unstable angina. Vital signs on presentation showed a temperature of 98.8, heart rate 103, respiratory rate 20, blood pressure was 134/52 and patient was 94% on 4 L nasal cannula. He is not oxygen dependent at baseline. CBC shows a mild leukocytosis with a white count of 12.8 and a left shift with an 82.5% neutrophilia. Hemoglobin is 7.8 and seems to be stable compared to previous. Coags are overtly unremarkable. Chemistry panel shows normal electrolytes with a BUN of 24 and a serum creatinine of 1.18 consistent with mild dehydration. Blood glucose was 208, lactic acid was initially 2.3 with a repeat of 1.4 after hydration. Liver function was unremarkable. His initial troponin was 119 with a delta of 113. I obtained a BNP and was found to be 4210. UA is not consistent with infection. Initial EKG showed no significant ST-T wave changes concerning for acute ischemia. With his chronic wound CT of the lumbar spine was performed and showed decubitus ulcer overlying the right posterior sacroiliac joint identifying mild adjacent inflammation with no abscess and no definitive joint or bone involvement, extensive vascular disease and degenerative changes in the lower lumbar spine. CT of the chest was performed given his hypoxia and shortness of breath. CT showed emphysematous changes with small bilateral pleural effusions and patchy bilateral airspace disease and no PE. 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 PVD (peripheral vascular disease) Diabetes Home Medications ?Medication ?Instructions ?Recorded ?Last Taken ?Type acetaminophen 325 mg capsule 650 mg PO Q4H PRN fever or pain 06/03/25 Unknown History acetaminophen 500 mg capsule 1,000 mg PO Q6H PRN fever or pain 06/03/25 Unknown History acetaminophen 650 mg rectal 650 mg GA Q4H PRN fever or pain 06/03/25 Unknown History suppository aluminum-mag hydroxide-simethicone 30 ml PO Q4H PRN indigestion 06/03/25 Unknown History 200 mg-200 mg-20 mg/5 mL oral susp (Antacid Plus Anti-Gas) amlodipine 10 mg tablet 10 mg PO DAILY 06/03/25 Unknown History ascorbic acid (vitamin C) 500 mg 500 mg PO DAILY 06/03/25 Unknown History capsule aspirin 81 mg tablet 81 mg PO DAILY 06/03/25 Unknown History bisacodyl 10 mg rectal suppository 10 mg GA DAILY PRN constipation 06/03/25 Unknown History buspirone 5 mg tablet 5 mg PO BID 06/03/25 Unknown History calcium carbonate (Antacid Ultra 430 mg PO TID PRN dyspepsia 06/03/25 Unknown History Strength) carvedilol 6.25 mg tablet 6.25 mg PO BID 06/03/25 Unknown History cetirizine 10 mg tablet 10 mg PO DAILY 06/03/25 Unknown History clopidogrel 75 mg tablet 75 mg PO DAILY 06/03/25 Unknown History dextrose 40 % oral gel (Glucose 20 g PO Q15M PRN hypoglycemia 06/03/25 Unknown History Gel) escitalopram oxalate 10 mg tablet 10 mg PO DAILY 06/03/25 Unknown History furosemide 40 mg tablet (Lasix) 40 mg PO DAILY 06/03/25 Unknown History gabapentin 300 mg capsule 300 mg PO QHS 06/03/25 Unknown History glucagon 1 mg injection kit 1 mg IM .q15min PRN hypoglycemia 06/03/25 Unknown History guaifenesin 100 mg/5 mL oral 200 mg PO Q4H PRN cough 06/03/25 Unknown History liquid (Cough Syrup) hydralazine 25 mg tablet 75 mg PO TID 06/03/25 Unknown History insulin glargine 100 unit/mL (3 20 unit subcut QPM 06/03/25 Unknown History mL) subcutaneous pen (Lantus Solostar U-100 Insulin) insulin lispro 100 unit/mL 14 unit subcut ACHS 06/03/25 Unknown History subcutaneous pen (Humalog KwikPen (U-100) Insulin) insulin lispro 100 unit/mL See Protocol subcut TID 06/03/25 Unknown History subcutaneous pen (Humalog KwikPen (U-100) Insulin) isosorbide dinitrate 40 mg tablet 40 mg PO TID 06/03/25 Unknown History magnesium hydroxide 400 mg/5 mL 30 ml PO DAILY PRN constipation 06/03/25 Unknown History oral suspension (Milk of Magnesia) methocarbamol 500 mg tablet 500 mg PO QHS 06/03/25 Unknown History multivit,tx with iron 27 1 tab PO DAILY 06/03/25 Unknown History nj-uovbrlp-ykibt acid 0.4 mg-minerals tablet (Thera-M) pantoprazole 40 mg tablet,delayed 40 mg PO DAILY 06/03/25 Unknown History release (Protonix) rivaroxaban 2.5 mg tablet 2.5 mg PO BID 06/03/25 Unknown History sennosides 8.6 mg tablet (senna) 8.6 mg PO BID 06/03/25 Unknown History sodium chloride 0.65 % nasal spray 1 spray intranasal BID 06/03/25 Unknown History aerosol (Nasal [place] (sodium chloride)) tamsulosin 0.4 mg capsule 0.4 mg PO QHS 06/03/25 Unknown History tramadol 50 mg tablet 50 mg PO BID 06/03/25 Unknown History Allergy/AdvReac Type Severity Reaction Status Date / Time atorvastatin Allergy Unknown unknown Verified 06/03/25 01:50 levofloxacin Allergy Unknown unknown Verified 06/03/25 01:50 metformin AdvReac Diarrhea Verified 06/03/25 01:50 Family History (Updated 06/03/25 @ 15:[address] Silvina Mackey, DO) Other CAD (coronary artery disease) COPD (chronic obstructive pulmonary disease) Diabetes Heart disease Hypertension Surgical History H/O heart artery stent S/P AKA (above knee amputation) bilateral Social History (Updated 06/03/25 @ 15:[address] Silvina Mackey DO) housing: other details: Goal is to get back to independent living current occupational status: retired Smoking Status: Former smoker alcohol intake: former substance use type: does not use ROS Constitutional Constitutional: Reports systems reviewed and no addt'l complaints, except as documented Eyes Eyes: Reports systems reviewed and no addt'l complaints, except as documented ENT HEENT: Reports systems reviewed and no addt'l complaints, except as documented Cardiovascular Cardiovascular: Reports systems reviewed and no addt'l complaints, except as documented Respiratory/Chest Respiratory/Chest: Reports systems reviewed and no addt'l complaints, except as documented Gastrointestinal Gastrointestinal: Reports systems reviewed and no addt'l complaints, except as documented Genitourinary Genitourinary: Reports systems reviewed and no addt'l complaints, except as documented Musculoskeletal Musculoskeletal: Reports systems reviewed and no addt'l complaints, except as documented Integumentary Integumentary: Reports systems reviewed and no addt'l complaints, except as documented Neurologic Neurologic: Reports systems reviewed and no addt'l complaints, except as documented Psychiatric Psychiatric: Reports systems reviewed and no addt'l complaints, except as documented Endocrine Endocrinology: Reports systems reviewed and no addt'l complaints, except as documented Hematologic/Lymphatic Hematologic/Lymphatic: Reports systems reviewed and no addt'l complaints, except as documented Allergic/Immunologic Allergic/Immunologic: Reports systems reviewed and no addt'l complaints, except as documented Physical Exam Const alert, oriented x3 and no apparent distress HEENT normocephalic and head/scalp atraumatic Eyes PERRL Neck full ROM Resp normal respiratory effort and clear to auscultation bilaterally Cardio regular rate GI normal to inspection, nondistended, normoactive bowel sounds no CVA tenderness Back/Spine no CVA tenderness Extremity normal to inspection Skin Skin Narrative: Sacral ulcer- open wound with purulent fluid currently packed with Dakins soaked wet to dry dressing with ABD pad over top. Surrounding skin appears viable. The wound does tunnel superiorly and to the right lateral direction. No surrounding erythema noted. Neuro no focal motor deficits and no sensory deficits noted Psych mental status grossly normal and thought process normal Lab / Micro Data 06/04/25 04:50 06/04/25 04:50 Labs: Laboratory Results - last 24 hr 06/03/25 11:17: WBC 12.8 H, RBC 2.97 L, Hgb 7.8 L, Hct 25.3 L, MCV 85.2, MCH 26.3 L, MCHC 30.8 L, RDW Std Deviation 50.4 H, RDW Coeff of Abby 16.0 H, Plt Count 378, MPV 9.1, Immature Gran % (Auto) 0.700, Neut % (Auto) 82.5 H, Lymph % (Auto) 6.7 L, [place] % (Auto) 8.5, Eos % (Auto) 1.1, Baso % (Auto) 0.5, Absolute Neuts (auto) 10.6 H, Absolute Lymphs (auto) 0.86, Nucleated RBC % 0, PT 15.0 H 06/03/25 11:17: PT Cancelled, INR 1.2 06/03/25 11:17: INR Cancelled, APTT 31.3 06/03/25 11:17: APTT Cancelled 06/03/25 12:06: POC Glucose 182 H 06/03/25 15:39: POC Glucose 129 H 06/03/25 17:45: APTT 58.4 H, Blood Type O POSITIVE, Antibody Screen NEGATIVE, Crossmatch See Detail 06/03/25 21:05: POC Glucose 135 H 06/03/25 23:40: APTT 53.4 H 06/04/25 00:50: Hgb 7.5 L 06/04/25 04:50: WBC 12.9 H, RBC 3.21 L, Hgb 8.7 L, Hct 26.4 L, MCV 82.2, MCH 27.1, MCHC 33.0 D, RDW Std Deviation 46.9 H, RDW Coeff of Abby 15.5 H, Plt Count 305, MPV 9.3, Immature Gran % (Auto) 0.900, Neut % (Auto) 79.0 H, Lymph % (Auto) 8.1 L, [place] % (Auto) 10.2 H, Eos % (Auto) 1.2, Baso % (Auto) 0.6, Absolute Neuts (auto) 10.2 H, Absolute Lymphs (auto) 1.04, Nucleated RBC % 0, Sodium 138, Potassium 3.9, Chloride 101, Carbon Dioxide 23.3, Anion Gap 13, BUN 25 H, Creatinine 1.22 H, Estim Creat Clear Calc 43.57 L, Est GFR (MDRD) Non-Af 63, BUN/Creatinine Ratio 20.1 H, Glucose 121 H, Calcium 8.9, Phosphorus 5.5 H, Magnesium 1.8, Total Bilirubin 0.51, AST 19, ALT 7, Alkaline Phosphatase 78, Total Protein 6.5, Albumin 3.1 L, Globulin 3.3, Albumin/Globulin Ratio 0.9 06/04/25 06:10: APTT 55.8 H Micro: Microbiology 06/03/25 13:30 Wound - Buttock Skin and Soft Tissue MRSA/MSSA (PCR - Final Staphylococcus aureus 06/03/25 02:24 Rectal Abscess Gram Stain - Final 06/03/25 09:40 Mucosa - Nasopharyngeal Respiratory Panel (PCR) - Final 06/03/25 11:40 Urine, Clean Catch Legionella Antigen - Final 06/03/25 11:40 Urine, Clean Catch Streptococcus pneumoniae Antigen (M - Final 06/03/25 09:40 Mucosa - Nasopharyngeal Coronavirus COVID-19 PCR - Final Charges/Coding Visit Charges Inpatient E&M: 76965 Init Hosp L2
--- NOTE | 2025-06-04 10:06 | CASEMGMT ---
Social Work- SW participated in interdisciplinary rounds with care team. Pt reports is a social services designee and great advocate for pt. Pt also has a sister that is an RN and great advocate. Pt recently had stump revision and was placed at [facility]. Discharge plans TBD. RNCM to assess. Pt named as HCPOA agent per pt. Documents requested for scan into chart. ZITA [place]
--- NOTE | 2025-06-04 10:13 | CASEMGMT ---
SACHI ESTRADA Assessment: Face to Face with pt for initial transition planning/care coordination assessment. SACHI ESTRADA introduced self and role at [facility], pt voices understanding and consents to assessment. Pt is A&O x4 and answers all questions appropriately at this time. Care providers, pharmacy, and demographics verified/updated. Strata: 1 Admitting Dx: Acute Hypoxic Respiratory Failure PCP: Gabriel Specialists: Luisa, Purchasing Internship; Krystina, Vascular; Matt Cpht, does not recall doctors name. Preferred Pharmacy: [facility] Pharmacy Insurance: [facility] Prescription Benefit: yes LNOK: Rylee Living Arrangements: Pt lives with in [place] in a 1 level home with no steps. Pt is currently at [facility] for rehab and wound care. ADLs: Pt reports he is independent with transfers and care at home, requires assistance with cleaning and cooking. Transportation: Pt provides transportation. DME: wheelchair, slide board, shower bench, bedside commode. HHC/SNF: Currently at [facility], previously used [facility]. HCPOA: Pt states is HCPOA. SACHI ESTRADA asked if is able to bring in papers, pt called she states she will bring them in. Notified SW. Pt states wishes to return to [facility] at time of DC. Denies wanting a list of local facilities at this time. Notified DC capacity planning engineer to send referral to [facility] to see if able to accept pt back. Pt states no further concerns/needs. CM to follow. Advised pt to ask CM if any further question/concerns/needs arise, voices understanding. Pt Goal: [facility] Plan: [facility] Bouchra KARIMI CM
--- NOTE | 2025-06-04 10:38 | CASEMGMT ---
Addendum entered by Jacklyn Collins 06/04/25 16:12: Pt will need new precert to return. Jacklyn Collins DC Planning Asst. Original Note: Discharge Planning Updates sent to [facility] with note asking if pt will need new precert to return. Awaiting response. Jacklyn Collins DC Planning Asst.
--- NOTE | 2025-06-04 10:47 | PN_ITS ---
Subjective Subjective Patient seen and examined. He had no active complaints and had an uneventful night. He denied any fever, chills, palpitations, dizziness, nausea, vomiting or any other symptoms. Review of systems is otherwise negative. He remains on the heparin drip, per cardiology. Objective Data Objective Data Vital Signs: Vital Signs Temp Pulse Resp BP Pulse Ox O2 Del Method O2 Flow Rate 98.4 F 79 21 H 128/56 H 93 Nasal Cannula 4 06/04/25 08:00 06/04/25 08:00 06/04/25 08:00 06/04/25 08:00 06/04/25 08:00 06/04/25 08:00 06/04/25 08:00 FiO2 4 06/04/25 04:00 Oxygen Flow Rate (L/min) 4 Oxygen Delivery Method Nasal Cannula Weight: 149 lb 7.574 oz Body Mass Index (BMI) 51.9 Intake & Output: Intake and Output for Last 24 Hours 06/02/25 06/03/25 06/04/25 23:59 23:59 23:59 Intake Total 2007.63 / 2028.63 891.29 / 891.29 Output Total 950 / 950 600 / 600 Balance 1058.63 / 1079.63 291.29 / 291.29 Lab / Micro Data 06/04/25 04:50 06/04/25 04:50 Labs: Laboratory Results - last 24 hr 06/03/25 11:17: WBC 12.8 H, RBC 2.97 L, Hgb 7.8 L, Hct 25.3 L, MCV 85.2, MCH 26.3 L, MCHC 30.8 L, RDW Std Deviation 50.4 H, RDW Coeff of Abby 16.0 H, Plt Count 378, MPV 9.1, Immature Gran % (Auto) 0.700, Neut % (Auto) 82.5 H, Lymph % (Auto) 6.7 L, [place] % (Auto) 8.5, Eos % (Auto) 1.1, Baso % (Auto) 0.5, Absolute Neuts (auto) 10.6 H, Absolute Lymphs (auto) 0.86, Nucleated RBC % 0, PT 15.0 H 06/03/25 11:17: PT Cancelled, INR 1.2 06/03/25 11:17: INR Cancelled, APTT 31.3 06/03/25 11:17: APTT Cancelled 06/03/25 12:06: POC Glucose 182 H 06/03/25 15:39: POC Glucose 129 H 06/03/25 17:45: APTT 58.4 H, Blood Type O POSITIVE, Antibody Screen NEGATIVE, Crossmatch See Detail 06/03/25 21:05: POC Glucose 135 H 06/03/25 23:40: APTT 53.4 H 06/04/25 00:50: Hgb 7.5 L 06/04/25 04:50: WBC 12.9 H, RBC 3.21 L, Hgb 8.7 L, Hct 26.4 L, MCV 82.2, MCH 27.1, MCHC 33.0 D, RDW Std Deviation 46.9 H, RDW Coeff of Abby 15.5 H, Plt Count 305, MPV 9.3, Immature Gran % (Auto) 0.900, Neut % (Auto) 79.0 H, Lymph % (Auto) 8.1 L, [place] % (Auto) 10.2 H, Eos % (Auto) 1.2, Baso % (Auto) 0.6, Absolute Neuts (auto) 10.2 H, Absolute Lymphs (auto) 1.04, Nucleated RBC % 0, Sodium 138, Potassium 3.9, Chloride 101, Carbon Dioxide 23.3, Anion Gap 13, BUN 25 H, C reatinine 1.22 H, Estim Creat Clear Calc 43.57 L, Est GFR (MDRD) Non-Af 63, B UN/Creatinine Ratio 20.1 H, Glucose 121 H, Calcium 8.9, Phosphorus 5.5 H, Magnesium 1.8, Total Bilirubin 0.51, AST 19, ALT 7, Alkaline Phosphatase 78, Total Protein 6.5, Albumin 3.1 L, Globulin 3.3, Albumin/Globulin Ratio 0.9 06/04/25 06:10: APTT 55.8 H Micro: Microbiology 06/03/25 13:30 Wound - Buttock Skin and Soft Tissue MRSA/MSSA (PCR - Final Staphylococcus aureus 06/03/25 02:24 Rectal Abscess Gram Stain - Final 06/03/25 09:40 Mucosa - Nasopharyngeal Respiratory Panel (PCR) - Final 06/03/25 11:40 Urine, Clean Catch Legionella Antigen - Final 06/03/25 11:40 Urine, Clean Catch Streptococcus pneumoniae Antigen (M - Final 06/03/25 09:40 Mucosa - Nasopharyngeal Coronavirus COVID-19 PCR - Final Physical Exam Const alert, oriented x3 and no apparent distress General Appearance: cooperative HEENT normocephalic, head/scalp atraumatic, moist oral mucous membranes and oropharynx normal Eyes EOMs intact bilaterally Neck supple and no JVD Lymph Lymphatic: no lymphedema noted Resp Resp Narrative: mildly diminished breath sounds bibasally, no wheezes or crackles. On 4L of oxygen by nasal canula Cardio regular rate, regular rhythm, S1 normal heart sound, S2 normal heart sound and no murmurs GI normal to inspection, nondistended, normoactive bowel sounds, soft to palpation, non-tender and non-distended Extremity no clubbing, cyanosis or edema Extremity Narrative: bilateral AKA Skin Skin Narrative: intact dressing over back of right thigh due to some superficial erythema Neuro CN's II-XII intact bilaterally Motor Exam: general weakness Psych thought process normal, cooperative and affect normal Appearance: appropriate Assessment & Plan Assessment/Plan (1) Acute on chronic heart failure: (2) Unstable angina: PLAN: Plan #Unstable angina * s/p cardiac cath which showed 50% distal left main LAD stenosis, the intact stents were patent. * Remains on heparin drip per cardiology request. * High intensity statin. 2D echo pending. * Records requested from [facility] Where he had a cath a few months ago. * #Infected sacral decubitus ulcer * Currently on IV vancomycin and Zosyn. Wound care on board. General surgery consulted to evaluate. * Wound cultures pending. #Acute hypoxic respiratory failure due to acute on chronic heart failure * EF unknown. 2D echo done in read is pending. On IV Lasix 40 mg twice daily * On fluid restricted diet. On hydralazine, Imdur and Coreg. Cardiology on board. #CAD: On aspirin and Plavix. Not on high intensity statin due to previous intolerance. #Chronic Anemia: Hemoglobin today is 8.7. Was previously 7.5. Baseline hemoglobin ranges between 7-9 so is around his baseline. Will monitor closely. #Hypertension: On hydralazine and metoprolol as well as amlodipine #Bilateral AKA due to severe peripheral vascular disease: On aspirin and Plavix. Wound care on board. Aquatic PT. #Type 2 diabetes mellitus: Has A1c of 6.6 from 05/08/2025. On Lantus. Insulin sliding scale. Accu-Cheks ACHS. #BPH with obstrucdtion: on flomax #Depression and anxiety: on lexapro and buspar DVT propyhlaxis: xarelto on hold. Remains on heparin drip. Disposition: transfer to [facility] Per cardiology as Having Recurrent Chest Pain Charges/Coding Visit Charges Inpatient E&M: 71665 Subs Hosp L2
--- NOTE | 2025-06-04 10:53 | PCM.PN.CARD ---
Subjective Subjective Patient was weaned off of his nitroglycerin and promptly developed recurring chest discomfort described as a band across his lower thoracic area primarily mediated right in the retrosternal distribution. This was waxing and waning is what brought him to the hospital. He was cathed yesterday his right coronary stents done in September are widely patent he does have what appears to be an eccentric calcified 50% left main trunk lesion diffuse moderate 40 to 50% stenosis in the LAD and the circumflex is a relatively small vessel which has diffuse disease as well. The patient's right coronary is a huge vessel that perfuses the majority of the inferior lateral wall. The patient does have a sacral infection and his lactic acid was elevated upon initial presentation. He has been having chest discomfort at rest and with activity leading up to his admission. He has a bilateral [id number] amputee. The patient is also anemic with a hemoglobin of 7.8 and hematocrit of 25. Troponins were 119 and 113. Lactic acid was 2.3. His hemoglobin is now up to 8.7 he continues to have chest discomfort when weaning from the nitro. He is now back on IV nitroglycerin. Chest symptoms have markedly improved but not completely resolved. Objective Data Vital Signs: Vital Signs Temp Pulse Resp BP Pulse Ox O2 Del Method O2 Flow Rate 98.4 F 79 21 H 128/56 H 93 Nasal Cannula 4 06/04/25 08:00 06/04/25 08:00 06/04/25 08:00 06/04/25 08:00 06/04/25 08:00 06/04/25 08:00 06/04/25 08:00 FiO2 4 06/04/25 04:00 Oxygen Flow Rate (L/min) 4 Oxygen Delivery Method Nasal Cannula Weight: 149 lb 7.574 oz Body Mass Index (BMI) 51.9 Intake & Output: Intake and Output for Last 24 Hours 06/02/25 06/03/25 06/04/25 23:59 23:59 23:59 Intake Total 2007.63 / 2028.63 891.29 / 891.29 Output Total 950 / 950 600 / 600 Balance 1058.63 / 1079.63 291.29 / 291.29 Lab / Micro Data Attestation: I reviewed the patient's lab results. 06/04/25 04:50 06/04/25 04:50 Labs: Laboratory Results - last 24 hr 06/03/25 11:17: WBC 12.8 H, RBC 2.97 L, Hgb 7.8 L, Hct 25.3 L, MCV 85.2, MCH 26.3 L, MCHC 30.8 L, RDW Std Deviation 50.4 H, RDW Coeff of Abby 16.0 H, Plt Count 378, MPV 9.1, Immature Gran % (Auto) 0.700, Neut % (Auto) 82.5 H, Lymph % (Auto) 6.7 L, Banks % (Auto) 8.5, Eos % (Auto) 1.1, Baso % (Auto) 0.5, Absolute Neuts (auto) 10.6 H, Absolute Lymphs (auto) 0.86, Nucleated RBC % 0, PT 15.0 H 06/03/25 11:17: PT Cancelled, INR 1.2 06/03/25 11:17: INR Cancelled, APTT 31.3 06/03/25 11:17: APTT Cancelled 06/03/25 12:06: POC Glucose 182 H 06/03/25 15:39: POC Glucose 129 H 06/03/25 17:45: APTT 58.4 H, Blood Type O POSITIVE, Antibody Screen NEGATIVE, Crossmatch See Detail 06/03/25 21:05: POC Glucose 135 H 06/03/25 23:40: APTT 53.4 H 06/04/25 00:50: Hgb 7.5 L 06/04/25 04:50: WBC 12.9 H, RBC 3.21 L, Hgb 8.7 L, Hct 26.4 L, MCV 82.2, MCH 27.1, MCHC 33.0 D, RDW Std Deviation 46.9 H, RDW Coeff of Abby 15.5 H, Plt Count 305, MPV 9.3, Immature Gran % (Auto) 0.900, Neut % (Auto) 79.0 H, Lymph % (Auto) 8.1 L, Banks % (Auto) 10.2 H, Eos % (Auto) 1.2, Baso % (Auto) 0.6, Absolute Neuts (auto) 10.2 H, Absolute Lymphs (auto) 1.04, Nucleated RBC % 0, Sodium 138, Potassium 3.9, Chloride 101, Carbon Dioxide 23.3, Anion Gap 13, BUN 25 H, Creatinine 1.22 H, Estim Creat Clear Calc 43.57 L, Est GFR (MDRD) Non-Af 63, BUN/Creatinine Ratio 20.1 H, Glucose 121 H, Calcium 8.9, Phosphorus 5.5 H, Magnesium 1.8, Total Bilirubin 0.51, AST 19, ALT 7, Alkaline Phosphatase 78, Total Protein 6.5, Albumin 3.1 L, Globulin 3.3, Albumin/Globulin Ratio 0.9 06/04/25 06:10: APTT 55.8 H Micro: Microbiology 06/03/25 13:30 Wound - Buttock Skin and Soft Tissue MRSA/MSSA (PCR - Final Staphylococcus aureus 06/03/25 02:24 Rectal Abscess Gram Stain - Final 06/03/25 09:40 Mucosa - Nasopharyngeal Respiratory Panel (PCR) - Final 06/03/25 11:40 Urine, Clean Catch Legionella Antigen - Final 06/03/25 11:40 Urine, Clean Catch Streptococcus pneumoniae Antigen (M - Final 06/03/25 09:40 Mucosa - Nasopharyngeal Coronavirus COVID-19 PCR - Final Rhythm Strip Rhythm Strip: Sinus Rhythm Rate: 80 Cardiology Labs/Tests 06/03/25 11:17: WBC 12.8 H, RBC 2.97 L, Hgb 7.8 L, Hct 25.3 L, MCV 85.2, MCH 26.3 L, MCHC 30.8 L, Plt Count 378, MPV 9.1, Immature Gran % (Auto) 0.700, Neut % (Auto) 82.5 H, Lymph % (Auto) 6.7 L, Banks % (Auto) 8.5, Eos % (Auto) 1.1, Baso % (Auto) 0.5, Absolute Neuts (auto) 10.6 H, Nucleated RBC % 0, PT 15.0 H 06/03/25 11:17: PT Cancelled, INR 1.2 06/03/25 11:17: INR Cancelled, APTT 31.3 06/03/25 11:17: APTT Cancelled 06/03/25 17:45: APTT 58.4 H 06/03/25 23:40: APTT 53.4 H 06/04/25 00:50: Hgb 7.5 L 06/04/25 04:50: WBC 12.9 H, RBC 3.21 L, Hgb 8.7 L, Hct 26.4 L, MCV 82.2, MCH 27.1, MCHC 33.0 D, Plt Count 305, MPV 9.3, Immature Gran % (Auto) 0.900, Neut % (Auto) 79.0 H, Lymph % (Auto) 8.1 L, Banks % (Auto) 10.2 H, Eos % (Auto) 1.2, Baso % (Auto) 0.6, Absolute Neuts (auto) 10.2 H, Nucleated RBC % 0, Sodium 138, Potassium 3.9, Chloride 101, Carbon Dioxide 23.3, Anion Gap 13, BUN 25 H, Creatinine 1.22 H, Est GFR (MDRD) Non-Af 63, BUN/Creatinine Ratio 20.1 H, Glucose 121 H, Calcium 8.9, Phosphorus 5.5 H, Magnesium 1.8, Total Bilirubin 0.51 06/04/25 06:10: APTT 55.8 H Rhythm: EKG: ECHO: Stress Test: Cardiac Cath: PCI: CT Surgery: Holter monitor: EPS: PPM: CXR: Chest CT Scan: Physical Exam Const alert and oriented x3 HEENT normocephalic Eyes EOMs intact bilaterally Chest inspection of chest normal Resp normal respiratory effort Auscultation: crackles bilateral base Cardio Cardio Narrative: Distant heart tones Rate: regular rate Rhythm: regular rhythm Heart Sounds: S1 normal and S2 normal; Negative for click, gallop or murmur GI GI Narrative: Obese Extremity Extremity Narrative: Bilateral [id number] amputation. Neuro Neuro Narrative: Alert and oriented x 3 Psych mental status grossly normal Assessment & Plan Assessment/Plan (1) Unstable angina: PLAN: Patient's symptoms are consistent with unstable angina. He reports that he has had multiple admissions through the [facility] for unstable angina and acute infarcts. His last intervention appears to be in September 2024 when he received stents to the right coronary artery both of which are widely patent on the cath done yesterday. He does have a 50% calcified left main trunk lesion and calcified proximal LAD 40 to 50%. The circumflex is a relatively small vessel but has moderate diffuse irregularities. The patient is not been able to be weaned off of IV nitro. He is on amlodipine aspirin clopidogrel carvedilol hydralazine and nitrates and Xarelto 2.5 mg twice daily in his home environment. Currently the patient is on aspirin carvedilol clopidogrel furosemide Dralzine Isorbid dinitrate 40 mg 3 times daily The patient has been able to be weaned from IV heparin and IV nitroglycerin. When the nitroglycerin is discontinued the patient's symptoms recur at rest. The plan from the interventional team yesterday was if this was to recur that he should be transferred to [facility] for evaluation for further revascularization intervention and consideration. (2) Sacral pressure ulcer: QUALIFIERS: Pressure injury stage: unspecified pressure injury stage Qualified Code(s): L89.159 - Pressure ulcer of sacral region, unspecified stage PLAN: Patient does have a sacral pressure of ulcer he did have what appears to be an infected area and a lactic acidosis upon original presentation with a lactic acid of 2.3. The patient was also anemic his hemoglobin is now up to 8.7. Originally it was 7.8. The patient is currently on piperacillin and vancomycin. PLAN: Plan 1. Patient is requesting transfer to the [facility] for further evaluation for complex intervention with stenting of the left main trunk versus continued medical therapy versus possibly coronary bypass grafting. 2. I will make a call to [facility] To see if we can get him transferred. 3. Added Nitropaste 1 inch topically every 6 to try and wean his IV nitro. Charges/Coding Visit Charges Inpatient E&M: 64981 Subs Hosp L2
[2025-06-04] MEDS: Nitroglycerin Oint 1 INCH PACKET TD (11:05)
[2025-06-04 12:55] LABS: Partial Thromboplast Time 64.6 Seconds (24.1-36.2)
[2025-06-04 15:54] LABS: Vancomycin, Trough Level 20.7 ug/mL (5.0-15.0)
--- NOTE | 2025-06-04 16:11 | PCM.RX.CS ---
Consult Antibiotic Management Pharmacy has been consulted to manage selected antibiotic: Vancomycin Type of Intervention Type of Consult: Follow-up Labs Labs: Sodium 138 mmol/L (133-145) 06/04/25 04:50 Potassium 3.9 mmol/L (3.3-5.1) 06/04/25 04:50 Chloride 101 mmol/L (98-108) 06/04/25 04:50 Carbon Dioxide 23.3 mmol/L (21.0-32.0) 06/04/25 04:50 Anion Gap 13 (5-15) 06/04/25 04:50 BUN 25 mg/dL (4-19) H 06/04/25 04:50 Creatinine 1.22 mg/dL (0.70-1.20) H 06/04/25 04:50 Est GFR (MDRD) Non-Af 63 (>60) 06/04/25 04:50 BUN/Creatinine Ratio 20.1 RATIO (10-20) H 06/04/25 04:50 Glucose 121 mg/dL (70-99) H 06/04/25 04:50 Vancomycin Trough 20.7 ug/mL (5.0-15.0) H 06/04/25 14:35 Microbiology Microbiology: Microbiology 06/03/25 02:24 Rectal Abscess Gram Stain - Final 06/03/25 02:24 Rectal Abscess Wound Culture - Preliminary GNR lactose drafter electronic 06/03/25 13:30 Wound - Buttock Skin and Soft Tissue MRSA/MSSA (PCR - Final Staphylococcus aureus 06/03/25 09:40 Mucosa - Nasopharyngeal Respiratory Panel (PCR) - Final 06/03/25 11:40 Urine, Clean Catch Legionella Antigen - Final 06/03/25 11:40 Urine, Clean Catch Streptococcus pneumoniae Antigen (M - Final 06/03/25 09:40 Mucosa - Nasopharyngeal Coronavirus COVID-19 PCR - Final Goal Trough Goal Trough: 15-20 mcg/mL Pharmacy Plan for Drug Dosing Pharmacy Plan for Drug Dosing: VANCOMYCIN LEVEL RECEIVED Current Vancomycin Dose: 500mg IV Q12h Number of Doses Received: 3 (ED + 2 scheduled doses) Vancomycin Level: 20.7 (goal 15-20) Hours Since Last Dose: 12hr Renal Function: SCr 1.22/ CrCl 43 mL/min Renal Function Trend: stable Lab/Micro: WCx growing staph spp Vancomycin Plan/Comments: Patient had a trough drawn which resulted in a value of 20.7 (goal 15-20). Will hold vancomycin at this time and get a random level in another 12 hours. Once trough is <20, will resume scheduled vancomycin Pending Level: *RANDOM* 06/05/25 @[id number] Pharmacy Service will continue to monitor and adjust dosing as required.
[2025-06-04] MEDS: HEPARIN/D5w 25,000 UNITS 25,000 UNITS/250 ML IV.SOLN. 8.9 UNITS CONT INF (17:23)
[2025-06-04 19:23] LABS: Partial Thromboplast Time 48.0 Seconds (24.1-36.2)
--- NOTE | 2025-06-04 19:24 | PCM.DC.SUM ---
Providers Date of Admission: 06/03/25 Primary Care Physician: Dr. Jazmyne Wilkins MD Consultations 06/03/25 08:55 Consult: Onc/Wound/applications support engineer Routine Comment: 06/03/25 10:50 Consult: Cardiology Routine Consulting Provider: Sharron Narayan Reason for Consult: Chest pain and EKG changes EMERGENT Consult: No MD Notified: Yes Date Notified: 06/03/25 Time Notified: 11:52 Method of Notification: Verbal 06/03/25 14:10 Consult: General Surgery Routine Consulting Provider: Shane Singer Reason for Consult: Decub EMERGENT Consult: No Notified: Yes Date Notified: 06/03/25 Time Notified: 14:11 Method of Notification: Verbal Reason For Visit: ACUTE HYPOXIC RESPIRATORY FAILURE Diagnosis Discharge Diagnosis (1) Acute on chronic heart failure: Status: Chronic Code(s): I50.9 - Heart failure, unspecified (2) Unstable angina: Status: Acute Code(s): I20.0 - Unstable angina (3) Sacral pressure ulcer: Status: Acute Code(s): L89.159 - Pressure ulcer of sacral region, unspecified stage Qualifiers: Pressure injury stage: unspecified pressure injury stage Qualified Code(s): L89.159 - Pressure ulcer of sacral region, unspecified stage Medications at Discharge Home Medications acetaminophen 325 mg capsule 650 mg PO Q4H PRN fever or pain 06/03/25 acetaminophen 500 mg capsule 1,000 mg PO Q6H PRN fever or pain 06/03/25 acetaminophen 650 mg rectal suppository 650 mg DC Q4H PRN fever or pain 06/03/25 aluminum-mag hydroxide-simethicone 200 mg-200 mg-20 mg/5 mL oral susp (Antacid Plus Anti-Gas) 30 ml PO Q4H PRN indigestion 06/03/25 amlodipine 10 mg tablet 10 mg PO DAILY 06/03/25 ascorbic acid (vitamin C) 500 mg capsule 500 mg PO DAILY 06/03/25 aspirin 81 mg tablet 81 mg PO DAILY 06/03/25 bisacodyl 10 mg rectal suppository 10 mg DC DAILY PRN constipation 06/03/25 buspirone 5 mg tablet 5 mg PO BID 06/03/25 calcium carbonate (Antacid Ultra Strength) 430 mg PO TID PRN dyspepsia 06/03/25 carvedilol 6.25 mg tablet 6.25 mg PO BID 06/03/25 cetirizine 10 mg tablet 10 mg PO DAILY 06/03/25 clopidogrel 75 mg tablet 75 mg PO DAILY 06/03/25 dextrose 40 % oral gel (Glucose Gel) 20 g PO Q15M PRN hypoglycemia 06/03/25 escitalopram oxalate 10 mg tablet 10 mg PO DAILY 06/03/25 furosemide 40 mg tablet (Lasix) 40 mg PO DAILY 06/03/25 gabapentin 300 mg capsule 300 mg PO QHS 06/03/25 glucagon 1 mg injection kit 1 mg IM .q15min PRN hypoglycemia 06/03/25 guaifenesin 100 mg/5 mL oral liquid (Cough Syrup) 200 mg PO Q4H PRN cough 06/03/25 hydralazine 25 mg tablet 75 mg PO TID 06/03/25 insulin glargine 100 unit/mL (3 mL) subcutaneous pen (Lantus Solostar U-100 Insulin) 20 unit subcut QPM 06/03/25 insulin lispro 100 unit/mL subcutaneous pen (Humalog KwikPen (U-100) Insulin) 14 unit subcut ACHS 06/03/25 insulin lispro 100 unit/mL subcutaneous pen (Humalog KwikPen (U-100) Insulin) See Protocol subcut TID 06/03/25 isosorbide dinitrate 40 mg tablet 40 mg PO TID 06/03/25 magnesium hydroxide 400 mg/5 mL oral suspension (Milk of Magnesia) 30 ml PO DAILY PRN constipation 06/03/25 methocarbamol 500 mg tablet 500 mg PO QHS 06/03/25 multivit,tx with iron 27 co-mpbfjfg-zucnr acid 0.4 mg-minerals tablet (Thera-M) 1 tab PO DAILY 06/03/25 pantoprazole 40 mg tablet,delayed release (Protonix) 40 mg PO DAILY 06/03/25 rivaroxaban 2.5 mg tablet 2.5 mg PO BID 06/03/25 sennosides 8.6 mg tablet (senna) 8.6 mg PO BID 06/03/25 sodium chloride 0.65 % nasal spray aerosol (Nasal [place] (sodium chloride)) 1 spray intranasal BID 06/03/25 tamsulosin 0.4 mg capsule 0.4 mg PO QHS 06/03/25 tramadol 50 mg tablet 50 mg PO BID 06/03/25 Hospital Course Procedures 2-D Echocardiogram, Blood transfusion (2units PRBCs) and Cardiac catheterization (Selective left and right coronary angiography for NSTEMI. 50% distal left main) Summary of Care Provided Hospital Course: ANTOLIN HATHAWAY, is a 74 M who presented to the emergency department at [facility] on 06/03/2025 due to fever and chills. Patient had a stump revision of his right lower extremity. 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 He recently had a vision of his right stump at [facility] and it sounds like he had a complicated postop hospital course involving an ICU stay and intubation with pneumonia. He developed a sacral pressure ulcer and from his history of sounds that he may have gone to an LTAC temporarily and then ended up at [facility]. He lives in [place] and intends to get back to independent living as soon as possible. He stated that at the facility at which she has been staying they were concerned that his ulcer was getting infected and had him on antibiotics. He was developing fevers and increased drainage from the wound. On further questioning he was having intermittent chest discomfort that he stated was more like indigestion. He stated he took Tums and that helped but they also gave him nitroglycerin he thought that helped the most. He does have known coronary disease and stated that he follows with Dr. Moran at [facility] at baseline. It sounds as if he had a cardiac catheterization with stent placement earlier this year in the spring but he cannot remember the exact date. We have requested records but they are pending at this time. He was found to be hypoxic and short of breath in the emergency department eventually this was chalked up to a pneumonia however troponin were elevated and his BNP was high. I suspect that his infection is related to his wound and his chest discomfort may be related to unstable angina. Vital signs on presentation showed a temperature of 98.8, heart rate 103, respiratory rate 20, blood pressure was 134/52 and patient was 94% on 4 L nasal cannula. He is not oxygen dependent at baseline. CBC shows a mild leukocytosis with a white count of 12.8 and a left shift with an 82.5% neutrophilia. Hemoglobin is 7.8 and seems to be stable compared to previous. Coags are overtly unremarkable. Chemistry panel shows normal electrolytes with a BUN of 24 and a serum creatinine of 1.18 consistent with mild dehydration. Blood glucose was 208, lactic acid was initially 2.3 with a repeat of 1.4 after hydration. Liver function was unremarkable. His initial troponin was 119 with a delta of 113. BNP was found to be 4210. UA is not consistent with infection. Initial EKG showed no significant ST-T wave changes concerning for acute ischemia. With his chronic wound CT of the lumbar spine was performed and showed decubitus ulcer overlying the right posterior sacroiliac joint identifying mild adjacent inflammation with no abscess and no definitive joint or bone involvement, extensive vascular disease and degenerative changes in the lower lumbar spine. CT of the chest was performed given his hypoxia and shortness of breath. CT showed emphysematous changes with small bilateral pleural effusions and patchy bilateral airspace disease and no PE. Cultures were obtained and he was started on broad-spectrum antibiotics in the emergency department. Per cardiology, Dr. Ina Rasheed, Patient was weaned off of his nitroglycerin and promptly developed recurring chest discomfort described as a band across his lower thoracic area primarily mediated right in the retrosternal distribution. This was waxing and waning is what brought him to the hospital. He was cathed yesterday his right coronary stents done in September are widely patent he does have what appears to be an eccentric calcified 50% left main trunk lesion diffuse moderate 40 to 50% stenosis in the LAD and the circumflex is a relatively small vessel which has diffuse disease as well. The patient's right coronary is a huge vessel that perfuses the majority of the inferior lateral wall. The patient does have a sacral infection and his lactic acid was elevated upon initial presentation. He has been having chest discomfort at rest and with activity leading up to his admission. He has a bilateral [id number]-jakj amputee. The patient is also anemic with a hemoglobin of 7.8 and hematocrit of 25. Troponins were 119 and 113. Lactic acid was 2.3. His hemoglobin is now up to 8.7 he continues to have chest discomfort when weaning from the nitro. He is now back on IV nitroglycerin. Chest symptoms have markedly improved but not completely resolved. Vanc trough 20.7 on 06.04.25 1435; Random vanc to be checked at 06.05.25 0200, HOLD vancomycin until level less than 20 per service shop foreman. Increased oxygen demands prior to transfer, pt up to 11L hi-foreign NC. ABG and portable CXR obtained - New left greater than right vascular congestion with interstitial edema. 20mg IV furosemide given. Weight / BMI Weight Weight: 149 lb 7.574 oz Body Mass Index (BMI) 51.9 ABG / Lab / Microbiology Data Attestation: I reviewed the patient's lab results. 06/04/25 04:50 06/04/25 04:50 Laboratory: Laboratory Results - last 24 hr 06/03/25 17:45: Antibody Screen NEGATIVE, Crossmatch See Detail 06/03/25 21:05: POC Glucose 135 H 06/03/25 23:40: APTT 53.4 H 06/04/25 00:50: Hgb 7.5 L 06/04/25 04:50: WBC 12.9 H, RBC 3.21 L, Hgb 8.7 L, Hct 26.4 L, MCV 82.2, MCH 27.1, MCHC 33.0 D, RDW Std Deviation 46.9 H, RDW Coeff of Abby 15.5 H, Plt Count 305, MPV 9.3, Immature Gran % (Auto) 0.900, Neut % (Auto) 79.0 H, Lymph % (Auto) 8.1 L, [place] % (Auto) 10.2 H, Eos % (Auto) 1.2, Baso % (Auto) 0.6, Absolute Neuts (auto) 10.2 H, Absolute Lymphs (auto) 1.04, Nucleated RBC % 0, Sodium 138, Potassium 3.9, Chloride 101, Carbon Dioxide 23.3, Anion Gap 13, BUN 25 H, Creatinine 1.22 H, Estim Creat Clear Calc 43.57 L, Est GFR (MDRD) Non-Af 63, BUN/Creatinine Ratio 20.1 H, Glucose 121 H, Calcium 8.9, Phosphorus 5.5 H, Magnesium 1.8, Total Bilirubin 0.51, AST 19, ALT 7, Alkaline Phosphatase 78, Total Protein 6.5, Albumin 3.1 L, Globulin 3.3, Albumin/Globulin Ratio 0.9 06/04/25 06:10: APTT 55.8 H 06/04/25 11:19: POC Glucose 134 H 06/04/25 12:30: APTT 64.6 H 06/04/25 14:35: Vancomycin Trough 20.7 H 06/04/25 16:31: POC Glucose 148 H 06/04/25 18:30: APTT 48.0 H 06/04/25 21:39: POC Glucose 117 H Microbiology: Microbiology 06/03/25 02:24 Rectal Abscess Gram Stain - Final 06/03/25 02:24 Rectal Abscess Wound Culture - Preliminary GNR lactose cable rigger 06/03/25 13:30 Wound - Buttock Skin and Soft Tissue MRSA/MSSA (PCR - Final Staphylococcus aureus 06/03/25 09:40 Mucosa - Nasopharyngeal Respiratory Panel (PCR) - Final 06/03/25 11:40 Urine, Clean Catch Legionella Antigen - Final 06/03/25 11:40 Urine, Clean Catch Streptococcus pneumoniae Antigen (M - Final 06/03/25 09:40 Mucosa - Nasopharyngeal Coronavirus COVID-19 PCR - Final ABG: ABG 06/04/25 21:12 Specimen Type ART Sample Site L Radial pH 7.47 H Bicarbonate Actual 24.9 Total CO2 26 Base Excess 1 O2 Saturation 94 L O2 % 11.0 ABG pCO2 34.0 L ABG pO2 65 L [place] Test Positive O2 Delivery Device Cannula Vent Mode Not entered Radiography Diagnostic Testing: Radiology Impression Echocardiogram 06/03/25 10:16 Interpretation Summary The left ventricular ejection fraction is 45 %. Mild concentric left ventricular hypertrophy.Posterior hypokinesis. Stage 2 diastolic dysfunction. Mild-Moderate (1-2+) mitral valve insufficiency. The study was technically difficult. Contrast injection was performed. Ordering Physician: Silvina Mackey Referring Physician: Claudette Samano Performed By: Jennifer Tucker RDCS Chest X-Ray 06/04/25 20:45 IMPRESSION: Mild cardiomegaly with vascular congestion and interstitial edema. Reading Location: [facility] D/C Instructions DC O2, CPAP, BIPAP Needs Home O2 Discharge instructions: No Meaningful Use Info Meaningful Use Meaningful Use Diagnoses (Choose all that apply): None applicable AMI/Post PCI/Angioplasty Aspirin given w/in 24hrs of arrival?: Yes ASA at discharge?: Yes Statins at discharge?: No Reason statins not ordered:: Allergy Discharge Plan Admission Admit Date/Time: 06/03/25 07:02 Attending Provider: Frances Onofre Primary Care Provider: Jazmyne Wilkins Consulting Providers: Sharron Narayan; Shane Singer; Silvina Mackey Discharge Orders/Prescriptions Prescriptions: No Action acetaminophen 500 mg capsule 1,000 mg PO Q6H PRN (Reason: fever or pain) acetaminophen 650 mg suppository 650 mg DC Q4H PRN (Reason: fever or pain) acetaminophen 325 mg capsule 650 mg PO Q4H PRN (Reason: fever or pain) amlodipine 10 mg tablet 10 mg PO DAILY alum-mag hydroxide-simeth [Antacid Plus Anti-Gas] 200-200-20 mg/5 mL suspension 30 ml PO Q4H PRN (Reason: indigestion) aspirin 81 mg tablet 81 mg PO DAILY bisacodyl 10 mg suppository 10 mg DC DAILY PRN (Reason: constipation) buspirone 5 mg tablet 5 mg PO BID Antacid Ultra Strength 430 mg calcium (1,000 mg) tablet,chewable 430 mg PO TID PRN (Reason: dyspepsia) carvedilol 6.25 mg tablet 6.25 mg PO BID Rx Instructions: must administer with a meal/food cetirizine 10 mg tablet 10 mg PO DAILY clopidogrel 75 mg tablet 75 mg PO DAILY escitalopram oxalate 10 mg tablet 10 mg PO DAILY furosemide [Lasix] 40 mg tablet 40 mg PO DAILY gabapentin 300 mg capsule 300 mg PO QHS glucagon 1 mg kit 1 mg IM .q15min PRN (Reason: hypoglycemia) dextrose [Glucose Gel] 40 % gel 20 g PO Q15M PRN (Reason: hypoglycemia) Rx Instructions: until symptoms of low blood sugar are controlled guaifenesin [Cough Syrup] 100 mg/5 mL liquid 200 mg PO Q4H PRN (Reason: cough) insulin lispro [Humalog KwikPen Insulin] 100 unit/mL insulin pen 14 unit subcut ACHS insulin lispro [Humalog KwikPen Insulin] 100 unit/mL insulin pen See Protocol subcut TID Protocol: 6. Sliding Scale Insulin Custom Condition: mg/dl range Dose/Route: Number of Units Condition: 180-200 Dose/Route: 2 Condition: 201-250 Dose/Route: 3 Condition: 251-300 Dose/Route: 4 Condition: 301-350 Dose/Route: 5 Condition: 351-400 Dose/Route: 6 Condition: 401-450 Dose/Route: 7 Condition: >450 Dose/Route: contact MD Protocol Text: Custom Sliding Scale hydralazine 25 mg tablet 75 mg PO TID isosorbide dinitrate 40 mg tablet 40 mg PO TID Rx Instructions: allow nitrate-free interval of 12-14 hrs per 24-hr period insulin glargine [Lantus Solostar U-100 Insulin] 100 unit/mL (3 mL) insulin pen 20 unit subcut QPM methocarbamol 500 mg tablet 500 mg PO QHS magnesium hydroxide [Milk of Magnesia] 400 mg/5 mL suspension 30 ml PO DAILY PRN (Reason: constipation) Nasal [place] (sodium chloride) 0.65 % aerosol,spray 1 spray intranasal BID pantoprazole [Protonix] 40 mg tablet,delayed release (DR/EC) 40 mg PO DAILY rivaroxaban 2.5 mg tablet 2.5 mg PO BID sennosides [senna] 8.6 mg tablet 8.6 mg PO BID tamsulosin 0.4 mg capsule 0.4 mg PO QHS Thera-M 27-0.4 mg tablet 1 tab PO DAILY tramadol 50 mg tablet 50 mg PO BID ascorbic acid (vitamin C) 500 mg capsule 500 mg PO DAILY Referrals / Follow Up: Jazmyne Wilkins MD [Primary Care Provider] - [facility] Doctor,Out of [Non-Staff] - Disposition Disposition (needs filled in before D/C Order can be placed): Acute [facility]
--- NOTE | 2025-06-04 20:45 | RAD_ITS ---
PROCEDURE: CHEST 1 VIEW (PORTABLE) 06/04/2025 REASON FOR EXAM: INCREASED OXYGEN DEMAND TECHNIQUE: Frontal view of the chest. COMPARISON: Correlation with CTA chest 06/03/2025. FINDINGS: Mild cardiomegaly with vascular congestion, and interstitial edema. No confluent airspace consolidation. No large pleural effusions or pneumothorax. Degenerative changes of the spine and bilateral AC joints. Left axillary surgical clips. RAD/Chest 1 View (Portable) IMPRESSION: Mild cardiomegaly with vascular congestion and interstitial edema. Reading Location: [facility]
[2025-06-04 21:16] LABS: Allen Test Positive; Base Excess 1 mmol/L (-2 to +2); FI02 11.0; PO2 65 mmHG (75-100); SITE L Radial; SO2 94 % (95-99)
[2025-06-04] MEDS: Furosemide 20 MG/2 ML VIAL IV (21:36)
[2025-06-04] MEDS: Nitroglycerin Infusion 250 ML 9 MG CONT INF (21:38)
[2025-06-04] MEDS: Insulin Glargine-YFGN 100 UNIT/ML Pen 20 UNIT SC (21:38)
--- NOTE | 2025-06-04 22:00 | PN.HOSP_ITS ---
Hospitalist Note ABG and CXR reviewed, BiPAP ordered to facilitate best outcome for pt during transfer to [facility] as Mobile ICU will not have Airvo capabilities.
--- NOTE | 2025-06-04 22:00 | PCM.HOSP.N ---
Hospitalist Note ABG and CXR reviewed, BiPAP ordered to facilitate best outcome for pt during transfer to [facility] as Mobile ICU will not have Airvo capabilities.
--- NOTE | 2025-06-04 22:28 | NURSING ---
22:06 this rn called report to [facility] SACHI Ray
--- NOTE | 2025-06-04 22:29 | NURSING ---
22:27 patient left unit with [facility] transport team
--- NOTE | 2025-06-05 08:05 | CASEMGMT ---
Discharge Planning [facility] notified that pt was transferred to [facility]. Jacklyn Collins DC Planning Asst.
== END 2025-06-04 22:27 | disposition short-term general hospital (02) | DRG 280 ==
LOC: ED 05:32 → PCU 07:45 → ICU 20:10
PROVIDERS: Internal Medicine; Admitting Provider Internal Medicine; Emergency Provider Student in an Organized Health Care Education/Training Program; PCP Internal Medicine; Visit Provider Student in an Organized Health Care Education/Training Program
DX: I21.4 Non-ST elevation (NSTEMI) myocardial infarction (principal); J96.21 Acute and chronic respiratory failure with hypoxia; I50.23 Acute on chronic systolic (congestive) heart failure; E87.20 Acidosis, unspecified; Z68.43 Body mass index [BMI] 50.0-59.9, adult; N13.8 Other obstructive and reflux uropathy; L89.150 Pressure ulcer of sacral region, unstageable; E11.40 Type 2 diabetes mellitus with diabetic neuropathy, unspecified; D64.9 Anemia, unspecified; Z66 Do not resuscitate; E11.65 Type 2 diabetes mellitus with hyperglycemia; I11.0 Hypertensive heart disease with heart failure; F32.A Depression, unspecified; Z89.611 Acquired absence of right leg above knee; E86.0 Dehydration; I25.110 Atherosclerotic heart disease of native coronary artery with unstable angina pectoris; E66.01 Morbid (severe) obesity due to excess calories; E11.51 Type 2 diabetes mellitus with diabetic peripheral angiopathy without gangrene; E78.5 Hyperlipidemia, unspecified; F41.9 Anxiety disorder, unspecified; Z89.612 Acquired absence of left leg above knee; K21.9 Gastro-esophageal reflux disease without esophagitis; Z79.4 Long term (current) use of insulin; K59.09 Other constipation; N40.1 Benign prostatic hyperplasia with lower urinary tract symptoms; G89.29 Other chronic pain; Z95.5 Presence of coronary angioplasty implant and graft; Z86.73 Personal history of transient ischemic attack (TIA), and cerebral infarction without residual deficits; Z79.02 Long term (current) use of antithrombotics/antiplatelets; Z79.82 Long term (current) use of aspirin; Z79.899 Other long term (current) drug therapy; Z87.891 Personal history of nicotine dependence
CPT/HCPCS: 36415; 36600; 71045; 71275; 72132; 80053; 80202; 81001; 82803; 82962; 83605; 83735; 83880; 84100; 84484; 85018; 85025; 85610; 85730; 86644; 86850; 86900; 86901; 87040; 87070; 87077; 87086; 87088; 87186; 87205; 87449; 87633; 87635; 87640; 93005; 93306; 93458; 94002; 94668; 94762; 97162; 97167; 99152; 99153; 99252; 99285; C1894; P9016; Q9957; Q9967; A4216; C1769; C8929; G0463; J1938; J2405